=== PATIENT | male | born 1975 | race Caucasian/White ===

== ENCOUNTER 2017-01-09 20:55 | Emergency (ER) | payer OTHER ==
[~2017-01-09] VITALS: Ht 190.5 cm; Wt 134.7 kg
[~2017-01-09 20:55] MED LIST: ACET-1256 PO; ASPI81TA28 PO; DICY20TA10 PO; GABA-112 PO; INSDGIPEN SC; METF-384 PO; PRT/40 PO; RBTUDL5 PO
[2017-01-09 20:57] VITALS: TEMP 37.1; Ht 190.5 cm; Wt 134.7 kg
[2017-01-09] MEDS ORDERED: LXP/20 PO (21:34)
[2017-01-09] MEDS ORDERED: IMT50 PO (21:34)
--- NOTE | 2017-01-09 21:57 | DIAGNOSTIC IMAGING REPORT ---
LEFT FOOT 3 VIEWS CLINICAL HISTORY: Left foot pain. FINDINGS: 3 views of left foot are compared to study dated 09/21/2015. The skeletal structures appear osteopenic. There is no radiographic evidence of acute fracture. Chronic posttraumatic deformity is again noted in the distal shaft of the fifth metatarsal. An os peroneum is unchanged. There is a large dorsal calcaneal enthesophyte. Mild soft tissue swelling is suggested in the foot. IMPRESSION: 1. Mild soft tissue swelling. No acute bony abnormal is seen. 2. There is chronic posttraumatic deformity of the fifth metatarsal. Electronically signed by: Jaydon Wallace M.D. 01/09/2017 9:55 PM Dictated Date/Time: 01/09/2017 9:53 PM
[2017-01-09] MEDS ORDERED: TRAM-453 PO (22:10)
--- NOTE | 2017-01-09 22:11 | EMERGENCY ROOM VISIT NOTE ---
ED Visit Note First contact with patient: 21:11 CHIEF COMPLAINT: Foot pain HISTORY OF PRESENT ILLNESS: This 41-year-old male patient presents to the emergency department ambulatory complaining of pain in the left foot. The patient states that he has had pain in the bottom of the left foot for the past one month. He states that it feels like he is stepping on something when he walks. He reports that he was seen at an urgent care and was told that the problem was too advanced for them. He was referred back to his primary care provider, who referred him to a exceptional children's teacher. The patient is unable to see a exceptional children's teacher until later next month. He states that the pain is worsening and he is having difficulty walking due to the pain. He reports his pain as a 3/10 at rest. He denies any significant swelling of the foot. He denies any bruising, redness or warmth. He has not been taking any medications at home for the pain. Range of motion is full. He does report a previous fracture of the outside of the left foot. He denies any recent trauma. REVIEW OF SYSTEMS: GENERAL: A 6 system review of systems was completed with positives and pertinent negatives in the HPI. ALLERGIES: Cephalosporins MEDICATIONS: See med list PMH: Diabetes, hyperlipidemia, hypertension SOCIAL HISTORY: The patient lives locally with family. PHYSICAL EXAM: Vital Signs: Reviewed Nurse's notes, vital signs stable. GENERAL : This is a 41-year-old male, in no acute distress, but appears in pain, well- developed, well-nourished. MUSCULOSKELETAL: There is no visual deformity of the left foot. There is no erythema or ecchymosis. There is no warmth. There is no tenderness over the dorsal aspect of the foot. No tenderness over the ankle. There is tenderness over the proximal insertion of the plantar fascia. Full range of motion of the ankle and toes. The skin is intact and there are no lacerations or puncture wounds. Dorsalis pedis pulse 2+. Capillary refill less than 2 seconds. RADIOGRAPHIC FINDINGS: LEFT FOOT 3 VIEWS CLINICAL HISTORY: Left foot pain. FINDINGS: 3 views of left foot are compared to study dated 09/21/2015. The skeletal structures appear osteopenic. There is no radiographic evidence of acute fracture. Chronic posttraumatic deformity is again noted in the distal shaft of the fifth metatarsal. An os peroneum is unchanged. There is a large dorsal calcaneal enthesophyte. Mild soft tissue swelling is suggested in the foot. IMPRESSION: 1. Mild soft tissue swelling. No acute bony abnormal is seen. 2. There is chronic posttraumatic deformity of the fifth metatarsal. EMERGENCY DEPARTMENT COURSE: I examined the patient. An X-ray of the left foot was reviewed by myself and radiology and reveals evidence of previous fracture of the fifth metatarsal, but no acute findings. His physical exam is most consistent with plantar fasciitis. The patient was placed in a postoperative shoe. I did initially plan on prescribing the patient an anti-inflammatory, however I chose not to give him that he takes lithium daily. He was instructed to follow-up with the exceptional children's teacher as scheduled. He was given a short course of tramadol for pain. The [place] prescription drug monitoring program was queried and no red flags were identified. The patient verbalized understanding of my assessment and treatment plan. The patient was discharged home in good condition. DIAGNOSIS: Foot pain Problem List Medical Problems: (1) Depression Status: Chronic (2) DM type 2 (diabetes mellitus, type 2) Status: Chronic (3) Gastroparesis Status: Chronic (4) HTN (hypertension) Status: Chronic (5) IBS (irritable bowel syndrome) Status: Chronic Surgical Problems: (1) S/P left knee arthroscopy Status: Chronic (2) S/P tonsillectomy Status: Chronic Current/Historical Medications Scheduled Atorvastatin (Atorvastatin Calcium), 20 MG PO DAILY Escitalopram Oxalate (Escitalopram Oxalate), 10 MG PO QAM Escitalopram Oxalate (Escitalopram Oxalate), 20 MG PO QAM Gabapentin (Gabapentin), 600 MG PO TID Insulin Aspart (Novolog Flexpen), 1 DOSE SC TID Insulin Glargine (Lantus Solostar), 35 UNITS SC AMPM Lisinopril (Lisinopril), 10 MG PO QAM [place] Carbonate ([place] Carbonate), 600 MG PO BID Metformin HCl (Metformin HCl ER), 1,000 MG PO BID Pantoprazole (Pantoprazole Sodium), 40 MG PO QAM Quetiapine Fumarate (Seroquel), 100 MG PO HS Tramadol Hcl (Ultram), 50 MG PO Q4H Scheduled PRN Acetaminophen (Tylenol), 1,000 MG PO BID PRN for Pain Sumatriptan Succinate (Sumatriptan Succinate), 50 MG PO UD PRN for Migraine Allergies Coded Allergies: Cephalosporins (Verified Allergy, Unknown, [place], 09/19/16) Vital Signs Date Time Temp Pulse Resp B/P Pulse Ox O2 Delivery O2 Flow Rate FiO2 01/09/17 22:16 102 18 157/90 92 01/09/17 20:57 37.1 117 18 129/71 96 Room Air Departure Information Impression Primary Impression: Plantar fasciitis of left foot Dispostion Home / Self-Care Condition GOOD Prescriptions Tramadol Hcl (ULTRAM) 50 Mg Tab 50 MG PO Q4H for Pain for 12 Days, #48 TAB For Initial Treatment Prov: Mayte Saxena .JAMIE 01/09/17 Referrals Velasquez Valencia M.D. (PCP) Patient Instructions My [facility] Additional Instructions Tramadol as needed for pain. Follow-up with your primary care provider this week. Follow-up with podiatry as scheduled. Wear the boot for the next 3-4 days, then as needed for pain.
[2017-01-09 22:16] VITALS: BP 157/90; PULSE 102; O2SAT 92
[2017-03-20] MEDS ORDERED: ASPCH81X PO (16:57)
[2017-03-20] MEDS ORDERED: PRLSR20 PO (17:03)
[2017-03-20] MEDS ORDERED: LVMI SC (17:03)
[2017-03-20] MEDS ORDERED: CALC500C3 PO (17:20)
[2017-03-20] MEDS ORDERED: ACET-1175 PO (17:20)
[2017-03-20] MEDS ORDERED: ALUM-30 PO (17:23)
[2017-03-20] MEDS ORDERED: MOML PO (17:23)
[2017-03-20] MEDS ORDERED: ONDA4TAB10 SL (17:31)
[2017-03-20] MEDS ORDERED: LPT/20 PO (18:09)
[2017-03-20] MEDS ORDERED: LISI-461 PO (18:09)
[2017-03-20] MEDS ORDERED: SUMA50TA15 PO (21:28)
[2017-03-20] MEDS ORDERED: PANT40TA PO (21:28)
[2017-03-20] MEDS ORDERED: GLCSR/500 PO (21:34)
[2017-03-20] MEDS ORDERED: NVLGI/PEN SC (21:34)
[2017-03-20] MEDS ORDERED: LXP10 PO (21:34)
[2017-03-20] MEDS ORDERED: NRN600 PO (21:34)
[2017-03-20] MEDS ORDERED: LITH600C PO (21:34)
[2017-04-20] MEDS ORDERED: ULT50X PO (16:22)
[2017-04-20] MEDS ORDERED: DXY100 PO (16:22)
[2017-05-17] MEDS ORDERED: EFFSR375 PO (10:30)
[2017-05-17] MEDS ORDERED: NRN100 PO (10:30)
[2017-05-17] MEDS ORDERED: NICO21DI4 EXT (10:31)
[2017-05-17] MEDS ORDERED: NCR2 MT (10:31)
== END 2017-01-09 22:15 | disposition home or self-care (01) ==
LOC: C.EDB 20:56 → C.EDD 22:15
DX: M72.2 Plantar fascial fibromatosis (principal); M79.672 Pain in left foot; I10 Essential (primary) hypertension; E78.5 Hyperlipidemia, unspecified; E11.9 Type 2 diabetes mellitus without complications; K31.84 Gastroparesis; F32.9 Major depressive disorder, single episode, unspecified; K58.9 Irritable bowel syndrome, unspecified; Z96.652 Presence of left artificial knee joint; Z98.890 Other specified postprocedural states; Z79.4 Long term (current) use of insulin; Z79.84 Long term (current) use of oral hypoglycemic drugs; Z79.899 Other long term (current) drug therapy; Z88.8 Allergy status to other drugs, medicaments and biological substances

== ENCOUNTER → 2017-01-27 | Outpatient (CLI) | payer OTHER ==
[~2017-01-27] MED LIST changes: +ACET-1175 PO; +ALUM-30 PO; +ARIP1TAB15 PO; +ARIP1TAB16 PO; +ARIP1TAB8 PO; +ASPCH81X PO; +ASPEC81 PO; +ASPI-435 PO; +ATOR-24 PO; +ATOR10TA82 PO; +CALC500C3 PO; +CEFT1INJ6 IV; +CLIN300C2 PO; +CYCL5TAB PO; +CYM30 PO; +DICL1GEL12 TOP; -DICY20TA10 PO; +DULO60CA44 PO; +DXY100 PO; +EFFSR150 PO; +EFFSR375 PO; +FLX/5 PO; -GABA-112 PO; +GABA1CAP PO; +GABA800T PO; +GABA800T2 PO; +GLCSR/500 PO; +IMT50 PO; +INSU3INJ3 SC; +LCTX PO; +LISI-461 PO; +LISI10TA PO; +LITH600C PO; +LPT/20 PO; +LPT40 PO; +LVMI SC; +LXP/20 PO; +LXP10 PO; -METF-384 PO; +MOML PO; +NCR2 MT; +NICO21DI4 EXT; +NRN100 PO; +NRN400 PO; +NRN600 PO; +NVLGI/PEN SC; +NVLGIPEN SQ; +OMEP40CA41 PO; +ONDA4TAB10 SL; +PANT40TA PO; +PANT40TA2 PO; +POLY335019 PO; +PRLSR20 PO; +PROM1SUP19 PR; -PRT/40 PO; +QUET1TAB34 PO; -RBTUDL5 PO; +SULF800T23 PO; +SUMA50TA15 PO; +ULT50 PO; +ULT50X PO; +VENL37.593 PO; +VLTG EXT; +[UNRECOGNIZED DRUG - CODE] PO
--- NOTE | 2017-01-28 07:40 | PAP/PSG TECHNICIAN REPORT ---
[facility] Director Utilization Management Polysomnogram Report Study name: None Report date: 01/28/2017 Study date: 01/27/2017 Referring Physician: Aissatou Greene M.D. Name: ROBERT AKHTAR Interpreting Physician: Daniel Greene M.D. Date of : 1975 Director Utilization Management: Elaina Lozano RPS. Sex: Male Age: 41 Study Type: PSG PAP Weight: 288 lbs Height: 41 years, Height 6' 3" BMI: 35.99 Medications: GABAPENTIN 600 MG, LITHIUM CARBONATE 600 MG, LANTUS SOLOSTAR 100 UNIT/ML, NOVOLOG 100 UNIT/ML, SUMATRIPTAN 50 MG, LEXAPRO 20 MG, MELOXICAM 15 MG, SEROQUEL 100 MG, ASPIRIN 81 MG, LISINOPRIL 10 MG, ATORVASTATIN 20 MG, PANTOPRAZOLE 40 MG Patient History 41 yr-old male here for a new CPAP treatment study. He was found to be positive for DAMION with an AHI of 42.8. He chose a Quattro Air full face mask size medium from [employer]. The test was started on room air and 4 CMH2O. ETCO2 testing was not utilized during this study. Room 1 Parameters Monitored NPSG: E1-M2, E2-M1, Fp1-M2, Fp2-M1, F3-M2, F4-M2, F4-M1, C3-M2, C4-M2, C4-M1, O1-M2, O2-M2, O2-M1, T3-M2, T4-M1, P3-M2, P4-M1, CHIN1, CHIN2, HR, EKG, Legs, PFLOW, SNOR, FLOW, CFLOW, Tidal Volume, THOR, ABDO, SpO2, PLTH, CPRESS, ETCO2 Wave, ETCO2, pH Sleep Architecture Sleep Stages Time at Lights Off 10:43:38 PM STAGES Time (min.) TST (%) Time at Lights On 5:30:08 AM Wake 126.5 -- Total Recording Time (TRT) 406.50 min. N1 33.5 12 Total Sleep Period (TSP) 327.0 min. N2 246.5 88 Total Sleep Time (TST) 280.0min. N3 0.0 0 Awake Time 126.5 min. REM 0.0 0 Wake after Sleep Onset 121.0 min. Sleep Efficiency (SE) 69 % Sleep Onset Latency (DWAIN) 5.5 min. Number of Stage 1 Shifts None Awakenings 15 Stage Changes 82 Number of REM periods N/A REM 0.0 0 REM Latency NONE min. NREM 280.0 100 Body Position Analysis Supine Right Left Side Prone Vertical Total Sleep Time (min.) 47.9 171.5 76.1 247.60 0.0 0.0 Total Sleep Time (%) 12% 61% 27% 88 0% N/A% Total Sleep Time REM (min.) 0.0 0.0 0.0 None 0.0 0.0 Total Sleep Time NREM (min.) 32.4 171.5 76.1 None 0.0 0.0 Intermittent Wake (min.) 15.5 95.1 15.8 None 0.0 0.0 Total Sleep Period (%) 14% None None None None None Arousals Myoclonus (PLM) * Events Count Index Events Count Index Spontaneous 26 6 Events Awake (PLMW) 94 44.6 Respiratory 17 3.9 Events Asleep w/ Arousal (PLMA) 21 4.5 PLM 21 5 Events Asleep w/o Arousal (PLMS) 597 127.9 Snoring 10 2 Total Asleep 618 132.4 Total 74 16 Total 712 105 Respiratory Analysis * CA OA MA CH H RERA Total Count 14 1 1 0 92 3 108 Index 3.0 0.2 0.2 0 19.7 1 23.8 Mean Duration 15.2 15.3 18.8 0.00 16.6 15.9 16.4 Longest Duration 21.9 15.3 18.8 0.00 18.8 17.0 24.9 Respiratory Event Summary Total Supine ~Supine Right Left Prone REM NREM Apneas Count 16 6 10 4 6 N/A N/A 16 Index 3.4 11 2 1.4 4.7 N/A N/A 3 Hypopneas (4% Desat) Count 92 24 68 46 22 N/A N/A 92 Index 19.7 44.4 16 16.1 17.3 N/A N/A 19.7 Apneas & All Hypopneas Count 108 30 78 50 28 N/A N/A 108 Index 23.1 56 19 17 22 N/A N/A 23.1 Respiratory Events (Model Making Supervisor+All Hyp+RERA) Count 108 30 81 53 28 N/A N/A 108 Index 23.8 56 20 18.5 22.1 N/A N/A 23.8 Respiratory Related Arousal Count 17 30 13 8 5 N/A N/A 18 Index 3.9 9 3 3 4 N/A N/A 4 Snoring Analysis Supine Right Left Prone REM NREM Total Snore duration 26.7 min Snores count 132 670 395 N/A N/A 1,197 1,197 Snore mean duration 1.3 Sec Snores index 244 234 311 N/A N/A 256.5 256.5 TST with snoring (%) 9.5% Desaturation Event Summary: Minimum %SpO2 Event Count Mean/Min/Max Duration(sec.) Desaturation Index % Time In Bed > 90 178 19.3 / 5.0 / 60.0 27.1 97.7 86 - 90 1 14.8 / 14.8 / 14.8 7.6 1.9 81 - 85 0 N/A 0.0 0.3 76 - 80 1 6.3 / 6.3 / 6.3 576.0 0.0 71 - 75 0 N/A 0.0 0.0 66 - 70 0 N/A 0.0 0.0 61 - 65 0 N/A 0.0 0.0 56 - 60 0 N/A 0.0 0.0 51 - 55 0 N/A 0.0 0.0 < 50 0 N/A 0.0 0.0 Total REM NREM Awake <50% 0.0 min. 0.0 min. 0.0 min. 0.0 min. 51 - 60% 0.0 min. 0.0 min. 0.0 min. 0.0 min. 61 - 70% 0.0 min. 0.0 min. 0.0 min. 0.0 min. 71 - 80% 0.1 min. 0.0 min. 0.0 min. 0.1 min. 81 - 90% 9.2 min. 0.0 min. 8.2 min. 0.9 min. 91 - 100% 394.6 min. 0.0 min. 271.3 min. 123.3 min. Average 94 0 94 94 Minimum SpO2 80 N/A 82 80 Desaturation Event Index 26.4 0.0 33.0 12.8 # Desat. Events below 89% 13 N/A 10 3 Time(%) with Saturation below 89% 0.6 0.0 0.5 0.1 Time(min.) with Saturation below 89% 2.5 0.0 1.9 0.6 Time (mins) REM (mins) NREM (mins) % of TST SpO2 Below 90% 42 N/A N42 1.1 SpO2 Below 88% 2 0 0 1 Heart Rate Analysis Min (bpm) Max (bpm) Average (bpm) Awake 82 105 89 NREM 80 98 89 REM N/A N/A N/A Overall 80 98 89 Supplemental O2 Values Minimum O2 level: None Value Start Time End Time Director Utilization Management Comments Mr. Akhtar slept in the right, left, and supine positions. No cardiac arrhythmias were noted. PLMs were noted. No bruxism noted. CPAP was initiated at +4 CMH2O and up-titrated to a level of +14 CMH2O, Cflex 2. A Quattro Air full face mask size medium from [employer] was used during titration He did not wake up to use the restroom during the night. Mr. Akhtar stated that he slept ok. The final report will be interpreted and signed by a sleep physician. The completed physician report will then be placed in the patient medical record. Therapy Event: Therapy (cm H20) 4 6 8 9 10 12 14 Total Time at Pressure (min.) 32.0 18.2 35.5 35.6 92.9 54.6 137.8 TST at Pressure (min.) 25.5 18.2 34.0 32.6 92.4 52.1 25.3 # Periods 1 1 1 1 1 1 1 Sleep Onset (min.) 5.5 0.0 0.0 0.0 0.0 0.0 0.0 REM Onset (min.) N/A N/A N/A N/A N/A N/A N/A Sleep Efficiency % 79 100 95 91 99 95 18 Wakefulness (%) 20.3 0.0 4.2 8.4 0.5 4.6 81.6 Wakefulness (min.) 6.5 0.0 1.5 3.0 0.5 2.5 112.5 NREM 1 (%) 12.5 2.8 5.6 15.4 7.5 14.1 4.9 NREM 1 (min.) 4.0 0.5 2.0 5.5 7.0 7.7 6.8 NREM 2 (%) 67.2 97.2 90.1 76.1 91.9 81.3 13.4 NREM 2 (min.) 21.5 17.7 32.0 27.1 85.4 44.3 18.5 NREM 3 (%) 0.0 0.0 0.0 0.0 0.0 0.0 0.0 NREM 3 (min.) 0.0 0.0 0.0 0.0 0.0 0.0 0.0 REM (%) 0.0 0.0 0.0 0.0 0.0 0.0 0.0 REM (min.) 0.0 0.0 0.0 0.0 0.0 0.0 0.0 # Arousals 9 3 4 9 18 18 13 Arousal Index 21.2 9.9 7.1 16.6 11.7 20.7 30.8 # Snore 249 162 347 196 141 96 6 Snore Index 585.6 535.4 612.8 360.7 91.5 110.6 14.2 AHI 18.8 52.9 21.2 33.1 18.8 24.2 9.5 AHI Supine N/A N/A N/A N/A 54.4 58.0 N/A AHI Non-Supine 18.8 52.9 21.2 33.1 7.7 15.8 9.5 NREM AHI 18.8 52.9 21.2 33.1 18.8 24.2 9.5 REM AHI N/A N/A N/A N/A N/A N/A N/A RDI 21.2 56.2 23.0 33.1 18.8 24.2 9.5 # Obstructive 0 0 0 1 0 0 0 # Central Ap 1 0 0 2 2 7 2 # Mixed 0 0 0 0 1 0 0 # Hypopneas 7 16 12 15 26 14 2 RERAS 1 1 1 0 0 0 0 Total Respiratory Events 9 17 13 18 29 21 4 Time Below SpO2 89.00% (min.) 0.0 0.0 0.1 0.0 0.1 1.7 0.1 Mean NREM SpO2 (%) 94 93 94 94 94 92 94 Mean REM SpO2 (%) N/A N/A N/A N/A N/A N/A N/A Mean Sleep SpO2 (%) 94 93 94 94 94 92 94 Min NREM SpO2 (%) 91 89 88 90 87 82 88 Min REM SpO2 (%) N/A N/A N/A N/A N/A N/A N/A Position Supine (min.) 0.0 0.0 0.0 0.0 22.1 10.3 0.0 Position Non-supine (min.) 25.5 18.2 34.0 32.6 70.4 41.7 25.3 LM Index Sleep 124.6 72.7 136.0 139.9 155.2 123.3 104.4 LM Index NREM 124.6 72.7 136.0 139.9 155.2 123.3 104.4 LM Index REM N/A N/A N/A N/A N/A N/A N/A Mean Heart Rate (bpm) 94 93 90 88 90 84 86 Min Heart Rate (bpm) 90 89 84 82 84 80 81
--- NOTE | 2017-02-14 14:27 | POLYSOMNOGRAPH REPORT ---
CPAP TITRATION STUDY REFERRING PERSON: Dr. Girish Greene. DRAWER IN: Elaina Lozano. Mr. Akhtar is a 41-year-old male sent to the sleep lab for CPAP titration study. He was recently found to have obstructive sleep apnea with an AHI of 42.8. He has chosen a Quattro Air medium full facemask for his titration. [place] sleepiness scale score on the evening of this study is not recorded. BMI is 35.99. Following the technical and digital specifications of the [place] [employer] (AASM) a standard diagnostic polysomnogram was performed monitoring EEG, EOG, EMG (chin and leg deviations), oxygen saturation, body position, digital video, respiratory effort and airflow. The sleep Stage and event scoring was based on the AASM Manual for the Scoring of Sleep and Associated Events 2007 edition. Apneas are defined as a drop in the peak thermal sensor excursion by >90% of baseline for at least 10 seconds. Hypopneas were scored using the 4% oxygen desaturation rule (4A-Medicare) and a decrease in the nasal pressure excursions by >30% of baseline for at least 10 seconds. Respiratory effort-related arousal (RERA's) is defined as a sequence of breaths lasting at least 10 seconds characterized by increasing respiratory effort or flattening of the nasal pressure waveform leading to an arousal from sleep when the sequence of breaths does not meet criteria for an apnea or hypopnea. Apnea Hypopnea index (AHI) is defined as the number of apneas and hypopneas occurring in an hour of sleep. Respiratory disturbance index (RDI) is defined as the number of apneas, hypopneas, and RERA's occurring in an hour of sleep. Mr. Akhtar's total sleep period time was 327 minutes. Total sleep time was 280 minutes. Sleep efficiency was 69%. Latency to sleep onset was 5.5 minutes with wake after sleep onset of 121 minutes. Total non-REM sleep time was 280 minutes. He spent 12% of that time in N1 sleep, 88% in N2 sleep and no time in N3 sleep. There was no REM latency as this patient had no REM sleep on this test. There were 74 cortical arousals from sleep. Ten of these arousals were due to snoring, 21 due to periodic limb movements of sleep, 17 were due to respiratory events, and the remaining 26 were spontaneous. There were 618 periodic limb movements noted. Limb movement index was 132.4, however, limb movement with arousal index was 4.5. On this sleep study, this patient had 14 central apneas, 1 obstructive apnea and 1 mixed apnea. There were 92 hypopneas and 3 RERA. Apnea-hypopnea index was 23.1. 1197 snoring events were recorded. Total sleep time with snoring was 9.5%. Mean saturation was 94% with desaturations to 80%. Saturations were less than 89% for 2.5 minutes of recorded time. There was no cardiac ectopy noted on this study. During sleep, this patient's heart rate ranged from a low of 80 beats per minute to a high of 98 beats per minute. As stated above, this was a CPAP titration study. Mr. Akhtar was titrated from a CPAP pressure of 4 to a CPAP pressure of 14 over the course of the night. Increasing pressures were needed to prevent hypopneas and arousals. He was observed on a pressure of 14 for 25.3 minutes of sleep. Again, there was no REM sleep on this pressure. Two central apneas and 2 hypopneas were noted on this pressure. AHI was 9.5. Saturations were less than 89% for 0.1 minutes of recorded time. IMPRESSION AND PLAN: A 41-year-old male with severe sleep apnea, who appears to improve his sleep disordered breathing with CPAP therapy, but it did not resolve at a pressure of 14. I would recommend that this patient should be placed on auto titrating CPAP with a minimum pressure of 14 and a maximum pressure of 20. A download from his machine can be reviewed in 1 month and he can be set to optimal pressure based on review of that download.
== END | disposition home or self-care (01) ==
LOC: C.NEUR 20:00
PROVIDERS: ATTEND Family Medicine
DX: G47.30 Sleep apnea, unspecified (principal)

== ENCOUNTER 2017-03-26 14:18 | Observation (INO) | payer OTHER ==
[~2017-03-26] VITALS: Ht 190.5 cm; Wt 130.3 kg
[~2017-03-26 14:18] MED LIST changes: -ACET-1256 PO; -ALUM-30 PO; -ARIP1TAB15 PO; -ARIP1TAB16 PO; -ARIP1TAB8 PO; -ASPEC81 PO; -ASPI-435 PO; -ASPI81TA28 PO; -ATOR-24 PO; -ATOR10TA82 PO; -CALC500C3 PO; -CEFT1INJ6 IV; -CLIN300C2 PO; -CYCL5TAB PO; -CYM30 PO; -DICL1GEL12 TOP; -DULO60CA44 PO; -DXY100 PO; -EFFSR150 PO; -EFFSR375 PO; -FLX/5 PO; -GABA1CAP PO; -GABA800T PO; -GABA800T2 PO; -IMT50 PO; -INSDGIPEN SC; -INSU3INJ3 SC; -LCTX PO; -LISI10TA PO; -LITH600C PO; -LPT40 PO; -LXP/20 PO; -MOML PO; -NCR2 MT; -NICO21DI4 EXT; -NRN100 PO; -NRN400 PO; -NVLGIPEN SQ; -OMEP40CA41 PO; -ONDA4TAB10 SL; -PANT40TA2 PO; -POLY335019 PO; -PRLSR20 PO; -PROM1SUP19 PR; -QUET1TAB34 PO; -SULF800T23 PO; -ULT50 PO; -ULT50X PO; -VENL37.593 PO; -VLTG EXT; -[UNRECOGNIZED DRUG - CODE] PO
[2017-03-26] MEDS ORDERED: SODIUM CHLORIDE 0.9% 1000ML 1,000 ML IV STA ×3 (15:21→17:29)
--- NOTE | 2017-03-26 15:24 | EMERGENCY ROOM VISIT NOTE ---
History Report prepared by Marianela: Kannan Dunn Under the Supervision of: Dr. George Enriquez D.O. First contact with patient: 14:57 Chief Complaint: REFERRED BY DOCTOR Stated Complaint: DEPRESSION History of Present Illness The patient is a 41 year old male who presents to the Emergency Room from [place] for a hypotensive blood pressure rating that was noticed shortly prior to arrival. Per nursing staff the patient's blood pressure was 80/50 at the [facility] this afternoon. The patient was admitted to the hospital here on Wednesday, 6 days ago for acute kidney failure and [facility] Toxicity at 2.4. The patient was discharged from his inpatient stay on Wednesday, two days prior to his arrival today. His [facility] supplement was stopped immediately on Wednesday. The patient is staying at the [facility] for chronic depression. He is not sure when his kidney failure began, but he notes that it was attributed to dehydration. The patient is currently complaining of shoulder pain and has no other complaints at this time. Source of History: patient, nursing staff Onset: Shortly BRAND SPECIALIST Position: other (Cardiovascular ) Quality: other (Hypotension) Note: Patient notes hx of depression/kidney failure. Shoulder pain. Review of Systems See HPI for pertinent positives & negatives. A total of 10 systems reviewed and were otherwise negative. Past Medical & Surgical Medical Problems: (1) Depression (2) DM type 2 (diabetes mellitus, type 2) (3) Gastroparesis (4) HTN (hypertension) (5) IBS (irritable bowel syndrome) (6) NSVT (nonsustained ventricular tachycardia) Surgical Problems: (1) S/P left knee arthroscopy (2) S/P tonsillectomy Family History Cancer Diabetes mellitus MOTHER GRANDMOTHER UNCLE AUNT Gallbladder disease Heart disease Hypertension MOTHER FATHER Lung disease Social History Smoking Status: Current Every Day Smoker Alcohol Use: heavy Drug Use: none Marital Status: Housing Status: lives with family Occupation Status: employed Current/Historical Medications Scheduled Aspirin (Aspirin Chewable), 81 MG PO DAILY Atorvastatin (Atorvastatin Calcium), 20 MG PO QAM Escitalopram Oxalate (Escitalopram Oxalate), 30 MG PO QAM Gabapentin (Gabapentin), 600 MG PO TID Insulin Aspart (Novolog Flexpen), 1 DOSE SC UD Insulin Detemir (Levemir), 20 UNITS SC BID Lisinopril (Lisinopril), 10 MG PO QAM Metformin HCl (Metformin HCl ER), 1,000 MG PO HOLD Omeprazole (Prilosec), 40 MG PO QAM Pantoprazole Sodium (Protonix), 1 TAB PO DAILY Quetiapine Fumarate (Seroquel), 100 MG PO HS Scheduled PRN Acetaminophen (Tylenol), 650 MG PO Q4H PRN for Pain Sumatriptan Succinate (Imitrex), 1 TAB PO UD PRN for Migraine Allergies Coded Allergies: Cephalosporins (Verified Allergy, Unknown, AR, 03/26/17) Physical Exam Vital Signs Date Time Temp Pulse Resp B/P (MAP) Pulse Ox O2 Delivery O2 Flow Rate FiO2 03/26/17 18:00 93 18 125/103 95 Room Air 03/26/17 17:34 91 18 155/65 96 Room Air 03/26/17 16:44 98 20 134/70 96 Room Air 03/26/17 15:46 98 22 113/45 96 Room Air 03/26/17 15:16 97 18 97/36 95 Room Air 03/26/17 14:53 99 03/26/17 14:48 100 118/43 96 Room Air 03/26/17 14:38 96 Room Air 03/26/17 14:32 60 18 104/43 03/26/17 14:20 36.8 105 20 87/40 97 Room Air Physical Exam GENERAL: Patient is awake, alert, and in no acute distress. Patient is resting comfortably and showing no signs of anxiety EYES: The conjunctivae are clear. The pupils are round and reactive. EARS, NOSE, MOUTH AND THROAT: The nose is without any evidence of any deformity. Mucous membranes are Dry. Tongue is midline NECK: The neck is nontender and supple. RESPIRATORY: Normal respiratory effort is noted there is no evidence of wheezing rhonchi or rales CARDIOVASCULAR: Regular rate and rhythm noted there no murmurs rubs or gallops normal S1 normal S2 GASTROINTESTINAL: The abdomen is soft. Bowel sounds are present in all quadrants. Abdomen is nontender MUSCULOSKELETAL/EXTREMITIES: There is no evidence of gross deformity full range of motion is noted in the hips and shoulders SKIN: There is no obvious evidence of any rash. There are no petechiae, pallor or cyanosis noted. NEUROLOGIC: Patient is awake alert and oriented x3. Medical Decision & Procedures ER Provider Diagnostic Interpretation: Radiology results as stated below per my review and radiologist interpretation: SINGLE VIEW CHEST CLINICAL HISTORY: Hypotension. FINDINGS: An AP, portable, upright chest radiograph is compared to study dated 03/20/2017. The examination is degraded by portable technique, large body habitus, and patient rotation. The cardiomediastinal silhouette is unremarkable. The lungs and pleural spaces are clear. No pneumothorax is seen. The bony thorax is grossly intact. IMPRESSION: No acute cardiopulmonary abnormality. Electronically signed by: Jaydon Wallace M.D. 03/26/2017 3:40 PM Dictated Date/Time: 03/26/2017 3:39 PM Laboratory Results 03/26/17 15:25 Red Blood Count 4.21, Mean Corpuscular Volume 83.1, Mean Corpuscular Hemoglobin 27.8, Mean Corpuscular Hemoglobin Concent 33.4, Mean Platelet Volume 8.8, Neutrophils (%) (Auto) 65.0, Lymphocytes (%) (Auto) 20.3, Monocytes (%) (Auto) 6.6, Eosinophils (%) (Auto) 6.8, Basophils (%) (Auto) 0.6, Neutrophils # (Auto) 7.76, Lymphocytes # (Auto) 2.42, Monocytes # (Auto) 0.79, Eosinophils # (Auto) 0.81, Basophils # (Auto) 0.07 03/26/17 15:25 Test 03/26/17 15:05 03/26/17 15:25 03/26/17 15:34 Urine Color YELLOW Urine Appearance CLEAR (CLEAR) Urine pH 5.0 (4.5-7.5) Urine Specific Chapman 1.021 (1.000-1.030) Urine Protein NEG (NEG) Urine Glucose (UA) NEG (NEG) Urine Ketones NEG (NEG) Urine Occult Blood NEG (NEG) Urine Nitrite NEG (NEG) Urine Bilirubin NEG (NEG) Urine Urobilinogen NEG (NEG) Urine Leukocyte Esterase NEG (NEG) Urine WBC (Auto) 1-5 /hpf (0-5) Urine RBC (Auto) 0-4 /hpf (0-4) Urine Hyaline Casts (Auto) >30 /lpf (0-5) Urine Epithelial Cells (Auto) >30 /lpf (0-5) Urine Bacteria (Auto) NEG (NEG) Urine Pathogenic Casts 0-3 GRANULAR CASTS /lpf (0) White Blood Count 11.93 K/uL (4.8-10.8) Red Blood Count 4.21 M/uL (4.7-6.1) Hemoglobin 11.7 g/dL (14.0-18.0) Hematocrit 35.0 % (42-52) Mean Corpuscular Volume 83.1 fL (80-100) Mean Corpuscular Hemoglobin 27.8 pg (25-34) Mean Corpuscular Hemoglobin Concent 33.4 g/dl (32-36) Platelet Count 265 K/uL (130-400) Mean Platelet Volume 8.8 fL (7.4-10.4) Neutrophils (%) (Auto) 65.0 % Lymphocytes (%) (Auto) 20.3 % Monocytes (%) (Auto) 6.6 % Eosinophils (%) (Auto) 6.8 % Basophils (%) (Auto) 0.6 % Neutrophils # (Auto) 7.76 K/uL (1.4-6.5) Lymphocytes # (Auto) 2.42 K/uL (1.2-3.4) Monocytes # (Auto) 0.79 K/uL (0.11-0.59) Eosinophils # (Auto) 0.81 K/uL (0-0.5) Basophils # (Auto) 0.07 K/uL (0-0.2) RDW Standard Deviation 38.9 fL (36.4-46.3) RDW Coefficient of Variation 12.9 % (11.5-14.5) Immature Granulocyte % (Auto) 0.7 % Immature Granulocyte # (Auto) 0.08 K/uL (0.00-0.02) Prothrombin Time 10.4 SECONDS (9.0-12.0) Prothromb Time International Ratio 1.0 (0.9-1.1) Activated Partial Thromboplast Time 25.9 SECONDS (21.0-31.0) Partial Thromboplastin Ratio 1.0 Anion Gap 13.0 mmol/L (3-11) Est Creatinine Clear Calc Drug Dose 46.9 ml/min Estimated GFR () 28.2 Estimated GFR (Non- 24.3 BUN/Creatinine Ratio 17.3 (10-20) Calcium Level 8.1 mg/dl (8.5-10.1) Magnesium Level 2.2 mg/dl (1.8-2.4) Total Bilirubin 0.4 mg/dl (0.2-1) Aspartate Amino Transf (AST/SGOT) 18 U/L (15-37) Alanine Aminotransferase (ALT/SGPT) 32 U/L (12-78) Alkaline Phosphatase 67 U/L (45-117) Troponin I < 0.015 ng/ml (0-0.045) Pro-B-Type Natriuretic Peptide 52 pg/ml (0-450) Total Protein 6.8 gm/dl (6.4-8.2) Albumin 3.6 gm/dl (3.4-5.0) Globulin 3.2 gm/dl (2.5-4.0) Albumin/Globulin Ratio 1.1 (0.9-2) Emory Level 0.4 mMOL/L (0.6-1.2) Ethyl Alcohol mg/dL < 3.0 mg/dl (0-3) Bedside Lactic Acid Venous 1.77 mmol/L (0.90-1.70) Laboratory results per my review. Medications Administered Medications (Trade) Dose Ordered Sig/Mario Alberto Route Start Time Stop Time Status Last Admin Dose Admin Sodium Chloride 1,000 ml @ 999 mls/hr Q1H1M STAT IV 03/26/17 15:21 03/26/17 16:21 DC 03/26/17 15:45 999 MLS/HR Sodium Chloride 1,000 ml @ 200 mls/hr Q5H STAT IV 03/26/17 15:21 03/26/17 20:20 DC 03/26/17 15:45 200 MLS/HR Sodium Chloride 1,000 ml @ 999 mls/hr Q1H1M STAT IV 03/26/17 17:29 03/26/17 18:29 DC 03/26/17 17:34 999 MLS/HR ECG Indication: weakness Rate (beats per minute): 99 Rhythm: normal sinus Findings: no acute ischemic change, no ectopy Comparison ECG Date: 03/26/2017 Change: no significant change ED Course 1509: The patient was evaluated in room A7. A complete history and physical examination were performed. 1521: Ordered Sodium Chloride 1000 mL @ 200 mL/hr IV Q5H, Sodium Chloride 1000 mL @ 999 mL/hr IV Q1H1M. 1729: Ordered Sodium Chloride 1000 mL @ 999 mL/hr IV. 1736: I discussed the case with Dr. Michael Cui. He will evaluate the patient for further treatment. Medical Decision Blood pressure screening: Patient was found to have hypotensive blood pressure on screening. Patient is being treated for hypotension. Medication Reconciliation: I attest that I have personally reviewed the patient' s current medications list. Differential diagnosis: Etiologies such as metabolic, infection, hypo/hyperglycemia, electrolyte abnormalities, cardiac sources, intracerebral event, toxicologic, neurologic, as well as others were entertained. The patient is a 41-year-old male who presented to the emergency apartment for an evaluation of abnormal renal function. The patient was medically cleared in our facility but was admitted medically because of a elevated lithium level and elevated renal function testing. He was discharged and admitted at the [facility] for psychiatric inpatient care. He returns today because of hypotension and abnormal laboratory studies. The patient was found have signs of renal failure. He appears to have also signs of dehydration. He was treated with IV fluids in the emergency department. I discussed his case with the on-call [facility]. They've agreed to evaluate the patient in emergency apartment for further management and disposition. Consults Time Called: 1728 Consulting Physician: Dr. Michael Cui Returned Call: [phone] I discussed the case with Dr. Michael Cui. He will evaluate the patient for further treatment. Impression Primary Impression: Acute renal failure Additional Impression: Dehydration Scribe Attestation The scribe's documentation has been prepared under my direction and personally reviewed by me in its entirety. I confirm that the note above accurately reflects all work, treatment, procedures, and medical decision making performed by me. Departure Information Dispostion Being Evaluated By Hospitalist Velasquez Bocanegra M.D. (PCP) Forms HOME CARE DOCUMENTATION FORM, IMPORTANT VISIT INFORMATION Patient Instructions My [facility] Problem Qualifiers Primary Impression: Acute renal failure Acute renal failure type: unspecified Qualified Codes: N17.9 - Acute kidney failure, unspecified
--- NOTE | 2017-03-26 15:41 | DIAGNOSTIC IMAGING REPORT ---
SINGLE VIEW CHEST CLINICAL HISTORY: Hypotension. FINDINGS: An AP, portable, upright chest radiograph is compared to study dated 03/20/2017. The examination is degraded by portable technique, large body habitus, and patient rotation. The cardiomediastinal silhouette is unremarkable. The lungs and pleural spaces are clear. No pneumothorax is seen. The bony thorax is grossly intact. IMPRESSION: No acute cardiopulmonary abnormality. Electronically signed by: Jaydon Wallace M.D. 03/26/2017 3:40 PM Dictated Date/Time: 03/26/2017 3:39 PM
[2017-03-26 15:45] LABS: URINE APPEARANCE CLEAR (CLEAR); URINE BILIRUBIN NEG (NEG); URINE COLOR YELLOW; URINE EPITHELIAL CELL AUTO >30 /lpf (0-5); URINE NITRITE NEG (NEG); URINE SPECIFIC GRAVITY 1.021 (1.000-1.030); UROBILINOGEN NEG (NEG); ZZUR CULT IF INDIC CLEAN CATCH NO
[2017-03-26 15:46] LABS: MANUAL MICROSCOPIC REQUIRED? NO; REVIEW REQ? YES
[2017-03-26 15:58] LABS: URINE PATH CASTS 0-3 GRANULAR CASTS /lpf (0)
[2017-03-26 15:59] LABS: PROTHROMBIN TIME (PATIENT) 10.4 SECONDS (9.0-12.0)
[2017-03-26] MEDS ORDERED: OMEP40CA41 PO (16:05)
[2017-03-26 16:26] LABS: MEAN CELL VOLUME 83.1 fL (80-100); MEAN CORPUSCULAR HEMOGLOBIN 27.8 pg (25-34); MEAN CORPUSCULAR HGB CONC 33.4 g/dl (32-36); MEAN PLATELET VOLUME 8.8 fL (7.4-10.4); PLATELET COUNT 265 K/uL (130-400); RED BLOOD COUNT 4.21 M/uL (4.7-6.1); WHITE BLOOD COUNT 11.93 K/uL (4.8-10.8)
[2017-03-26 16:42] LABS: BASO % 0.6 %; BASO ABS # 0.07 K/uL (0-0.2); COMPLETE YES; EOS % 6.8 %; IG% 0.7 %; LYMPH % 20.3 %; LYMPH ABS # 2.42 K/uL (1.2-3.4); MONO % 6.6 %
[2017-03-26 17:10] LABS: ALKALINE PHOSPHATASE 67 U/L (45-117); ALT/SGPT 32 U/L (12-78); CARBON DIOXIDE 22 mmol/L (21-32); MAGNESIUM 2.2 mg/dl (1.8-2.4)
[2017-03-26 17:18] LABS: GLUCOSE 159 mg/dl (70-99)
[2017-03-26 17:21] LABS: ALB/GLOB RATIO 1.1 (0.9-2); AST/SGOT 18 U/L (15-37); BLOOD UREA NITROGEN 52 mg/dl (7-18); BUN/CREATININE RATIO 17.3 (10-20); CALCIUM 8.1 mg/dl (8.5-10.1); CHLORIDE 96 mmol/L (98-107); POTASSIUM 4.1 mmol/L (3.5-5.1); SODIUM 131 mmol/L (136-145)
--- NOTE | 2017-03-26 18:27 | History and Physical ---
History & Physical Date & Time of Service: Mar 26, 2017 at 18:27 Chief Complaint: Depression [facility] History of Present Illness Source: patient Patient is a 41 yr old male with PMH of IDDM, HTN, GERD, HLP, Sleep Apnea, Major Depression and other problems who was recently discharged from [facility] after being treated for lithium induced ARF and currently undergoing treatment at [facility] for major depression presents after found to have low blood pressure of 80/50 noted at [facility] and elevated creatinine levels. Patient is currently not on lithium supplements. On evaluation in ED, he is hypotensive and tachycardic. He is drowsy but is oriented X 3 and awakes easily. He denies any change in medications recently. States doing well until yesterday but has been feeling very tired since this morning. Also states having dizziness earlier today which currently resolved. Denies any history of fever, chills, Chest pain, cough, SOB , nausea, vomiting, diarrhea, abdominal pain, decreased urine output or increased frequency, burning micturition. States drinking fluids adequately. Past Medical/Surgical History Medical Problems: (1) Depression Status: Chronic (2) DM type 2 (diabetes mellitus, type 2) Status: Chronic (3) Gastroparesis Status: Chronic (4) HTN (hypertension) Status: Chronic (5) IBS (irritable bowel syndrome) Status: Chronic Surgical Problems: (1) S/P left knee arthroscopy Status: Chronic (2) S/P tonsillectomy Status: Chronic Family History Cancer Diabetes mellitus MOTHER GRANDMOTHER UNCLE AUNT Gallbladder disease Heart disease Hypertension MOTHER FATHER Lung disease Reviewed as above Social History Smoking Status: Current Every Day Smoker Alcohol Use: socially Drug Use: none Marital Status: Housing status: lives with family 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 Immunizations History of Influenza Vaccine: Yes Influenza Vaccine Date: Jul 24, 2016 History of Tetanus Vaccine?: Unknown History of Pneumococcal: Yes Pneumococcal Date: Feb 09, 2006 History of Hepatitis B Vaccine: No Multi-Drug Resistant Organisms History of MDRO: No Allergies Coded Allergies: Cephalosporins (Verified Allergy, Unknown, AR, 03/26/17) Home Medications Scheduled Aspirin (Aspirin Chewable), 81 MG PO DAILY Atorvastatin (Atorvastatin Calcium), 20 MG PO QAM Escitalopram Oxalate (Escitalopram Oxalate), 30 MG PO QAM Gabapentin (Gabapentin), 600 MG PO TID Insulin Aspart (Novolog Flexpen), 1 DOSE SC UD Insulin Detemir (Levemir), 20 UNITS SC BID Lisinopril (Lisinopril), 10 MG PO QAM Metformin HCl (Metformin HCl ER), 1,000 MG PO HOLD Omeprazole (Prilosec), 40 MG PO QAM Pantoprazole Sodium (Protonix), 1 TAB PO DAILY Quetiapine Fumarate (Seroquel), 100 MG PO HS Scheduled PRN Acetaminophen (Tylenol), 650 MG PO Q4H PRN for Pain Sumatriptan Succinate (Imitrex), 1 TAB PO UD PRN for Migraine Review of Systems See HPI for pertinent positives & negatives. A total of 10 systems reviewed and were otherwise negative. Physical Exam Vital Signs Date Time Temp Pulse Resp B/P (MAP) Pulse Ox O2 Delivery O2 Flow Rate FiO2 03/26/17 18:00 93 18 125/103 95 Room Air 03/26/17 17:34 91 18 155/65 96 Room Air 03/26/17 16:44 98 20 134/70 96 Room Air 03/26/17 15:46 98 22 113/45 96 Room Air 03/26/17 15:16 97 18 97/36 95 Room Air 03/26/17 14:53 99 03/26/17 14:48 100 118/43 96 Room Air 03/26/17 14:38 96 Room Air 03/26/17 14:32 60 18 104/43 03/26/17 14:20 36.8 105 20 87/40 97 Room Air General Appearance: WD/WN, no apparent distress Head: normocephalic, atraumatic Eyes: normal inspection, PERRL, EOMI, sclerae normal ENT: normal ENT inspection, hearing grossly normal Neck: supple, trachea midline Respiratory/Chest: chest non-tender, lungs clear, normal breath sounds, no respiratory distress, no accessory muscle use Cardiovascular: regular rate, rhythm, no edema, no murmur Abdomen/GI: normal bowel sounds, non tender, soft, + pertinent finding ( Protuberant) Back: normal inspection Extremities/Musculoskelatal: normal inspection, no pedal edema Neurologic/Psych: no motor/sensory deficits, normal mood/affect, oriented x 3, + pertinent finding (Drowsy) Skin: normal color, warm/dry Diagnostics Laboratory Results Results Past 24 Hours Test 03/26/17 15:05 03/26/17 15:25 03/26/17 15:34 Range/Units Urine Color YELLOW Urine Appearance CLEAR CLEAR Urine pH 5.0 4.5-7.5 Urine Specific [place]ell 1.021 1.000-1.030 Urine Protein NEG NEG Urine Glucose (UA) NEG NEG Urine Ketones NEG NEG Urine Occult Blood NEG NEG Urine Nitrite NEG NEG Urine Bilirubin NEG NEG Urine Urobilinogen NEG NEG Urine Leukocyte Esterase NEG NEG Urine WBC (Auto) 1-5 0-5 /hpf Urine RBC (Auto) 0-4 0-4 /hpf Urine Hyaline Casts (Auto) >30 0-5 /lpf Urine Epithelial Cells (Auto) >30 0-5 /lpf Urine Bacteria (Auto) NEG NEG Urine Pathogenic Casts 0-3 GRANULAR CASTS 0 /lpf White Blood Count 11.93 4.8-10.8 K/uL Red Blood Count 4.21 4.7-6.1 M/uL Hemoglobin 11.7 14.0-18.0 g/dL Hematocrit 35.0 42-52 % Mean Corpuscular Volume 83.1 80-100 fL Mean Corpuscular Hemoglobin 27.8 25-34 pg Mean Corpuscular Hemoglobin Concent 33.4 32-36 g/dl Platelet Count 265 130-400 K/uL Mean Platelet Volume 8.8 7.4-10.4 fL Neutrophils (%) (Auto) 65.0 % Lymphocytes (%) (Auto) 20.3 % Monocytes (%) (Auto) 6.6 % Eosinophils (%) (Auto) 6.8 % Basophils (%) (Auto) 0.6 % Neutrophils # (Auto) 7.76 1.4-6.5 K/uL Lymphocytes # (Auto) 2.42 1.2-3.4 K/uL Monocytes # (Auto) 0.79 0.11-0.59 K/uL Eosinophils # (Auto) 0.81 0-0.5 K/uL Basophils # (Auto) 0.07 0-0.2 K/uL RDW Standard Deviation 38.9 36.4-46.3 fL RDW Coefficient of Variation 12.9 11.5-14.5 % Immature Granulocyte % (Auto) 0.7 % Immature Granulocyte # (Auto) 0.08 0.00-0.02 K/uL Prothrombin Time 10.4 9.0-12.0 SECONDS Prothromb Time International Ratio 1.0 0.9-1.1 Activated Partial Thromboplast Time 25.9 21.0-31.0 SECONDS Partial Thromboplastin Ratio 1.0 Sodium Level 131 136-145 mmol/L Potassium Level 4.1 3.5-5.1 mmol/L Chloride Level 96 98-107 mmol/L Carbon Dioxide Level 22 21-32 mmol/L Anion Gap 13.0 3-11 mmol/L Blood Urea Nitrogen 52 7-18 mg/dl Creatinine 3.00 0.60-1.40 mg/dl Est Creatinine Clear Calc Drug Dose 46.9 ml/min Estimated GFR () 28.2 Estimated GFR (Non- 24.3 BUN/Creatinine Ratio 17.3 10-20 Random Glucose 159 70-99 mg/dl Calcium Level 8.1 8.5-10.1 mg/dl Magnesium Level 2.2 1.8-2.4 mg/dl Total Bilirubin 0.4 0.2-1 mg/dl Aspartate Amino Transf (AST/SGOT) 18 15-37 U/L Alanine Aminotransferase (ALT/SGPT) 32 12-78 U/L Alkaline Phosphatase 67 45-117 U/L Troponin I < 0.015 0-0.045 ng/ml Pro-B-Type Natriuretic Peptide 52 0-450 pg/ml Total Protein 6.8 6.4-8.2 gm/dl Albumin 3.6 3.4-5.0 gm/dl Globulin 3.2 2.5-4.0 gm/dl Albumin/Globulin Ratio 1.1 0.9-2 [place] Level 0.4 0.6-1.2 mMOL/L Ethyl Alcohol mg/dL < 3.0 0-3 mg/dl Bedside Lactic Acid Venous 1.77 0.90-1.70 mmol/L Diagnostic Radiology CXR: No acute cardiopulmonary abnormality. EKG EKG:Normal sinus rhythm, No ST-T wave changes Impression Assessment and Plan Acute Renal Insufficiency: Likely Prerenal Dehydration Presented with tiredness, dizziness and Hypotension Recently discharged from [facility] after being treated for [place] Induced ARF Currently off lithium. [place] levels:0.4 On lisinopril for HTN and Lipitor for HLP: Hold lisinopril, Lipitor for now States he is off Metformin at [facility] Check Renal Ultrasound Hyaline casts in urine suggestive of dehydration Start NSS Monitor renal function Consult Nephrology Avoids Nephrotoxic agents Cr:3.0 Today (Cr:1.13 yesterday) Hyponatremia: Likely secondary to dehydration Also on Lexapro which can contribute Monitor sodium levels Mild Leukocytosis: UA: no signs of UTI, CXR:wnl Denies fever, chills. No obvious source of infection Monitor DM II: Last A1C: 7.8 on 03/21/17 ISS, Lantus hold oral diabetic meds Pharmacy Glycemic control consult HTN: Currently hypotensive Hold Lisinopril GERD: Continue Protonix Sleep Apnea: CPAP QHS Major Depression: Continue Lexapro, Seroquel Denies any suicidal thoughts HLP: Hold Lipitor for now (As ARF) DVT Px: Heparin SQ Disposition: Admit under Observation Plan to discharge to [facility] when medically cleared Cable Maker consulted
[2017-03-26] MEDS ORDERED: ONDANSETRON INJ 2 MG/ML 2 ML VIAL IV PRN (18:30)
[2017-03-26] MEDS ORDERED: ACETAMINOPHEN 325 MG TAB PO PRN (18:30)
[2017-03-26] MEDS ORDERED: PHARMACY GLYCEMIC MGMT CONSULT SCH (18:40)
[2017-03-26] MEDS ORDERED: GLUCOSE 40% GEL 15 GM TUBE PO PRN (18:45)
[2017-03-26] MEDS ORDERED: DEXTROSE 50% 50 ML SYR IV PRN (18:45)
[2017-03-26] MEDS ORDERED: GLUCOSE 10 TABS/TUBE PO PRN (18:45)
[2017-03-26] MEDS ORDERED: GLUCAGON FOR INJ 1 MG VIAL SQ PRN (18:45)
--- NOTE | 2017-03-26 19:31 | Pharmacy Progress Note ---
Glycemic Control Intl Consult Date of Service Mar 26, 2017. Scope Glycemic Pharmacist consulted by Dr Richard on 03/26/17 for glycemic control and to write orders per [facility] inpatient glycemic control protocol Objective Weight (Kilograms): 134.400 Accuchecks BSG (last 24hrs): Test 03/26/17 15:25 Random Glucose 159 mg/dl (70-99) Laboratory Data (last 24hrs) Test 03/26/17 15:25 Anion Gap 13.0 mmol/L BUN/Creatinine Ratio 17.3 Blood Urea Nitrogen 52 mg/dl Creatinine 3.00 mg/dl Potassium Level 4.1 mmol/L Sodium Level 131 mmol/L White Blood Count 11.93 K/uL Red Blood Count 4.21 M/uL Hemoglobin 11.7 g/dL Hematocrit 35.0 % Mean Corpuscular Volume 83.1 fL Mean Corpuscular Hemoglobin 27.8 pg Mean Corpuscular Hemoglobin Concent 33.4 g/dl Platelet Count 265 K/uL Mean Platelet Volume 8.8 fL Neutrophils (%) (Auto) 65.0 % Lymphocytes (%) (Auto) 20.3 % Monocytes (%) (Auto) 6.6 % Eosinophils (%) (Auto) 6.8 % Basophils (%) (Auto) 0.6 % Neutrophils # (Auto) 7.76 K/uL Lymphocytes # (Auto) 2.42 K/uL Monocytes # (Auto) 0.79 K/uL Eosinophils # (Auto) 0.81 K/uL Basophils # (Auto) 0.07 K/uL HbA1c 03/21/17 7.8% Recent Pertinent Medications Outpatient Anti-diabetic Regimen: * Levemir 20 units bid, Novolog sliding scale (previous metformin on hold due to recent ARF) * A1c = 7.8% 03/21/17 The patient is currently receiving: * Basal insulin: Levemir 20 units every 12 hours * Correctional Insulin: Novolog Correction per scale ACHS Goal Range: Low 120 mg/dL - High 160 mg/dL Correction Factor: 30 mg/dL/unit * Prandial insulin: Per carb ratio of 1 unit per 11 grams CHO consumed * Oral Agents: none Risk Factors for Insulin Resistance: * Steroids: no * Infection: no * Pressors: no * IVF: NS @125 ml/hr * Recent Surgery: no * Diet: type 2 diabetic * Mechanical Ventilation: no Assessment & Plan ASSESSMENT: * ADA & AACE recommend a goal blood sugar range 140-180 mg/dl for the majority of critically ill & non-critically ill patients. However, more stringent targets may be selected in individual cases. * 40 yo type 2 diabetic, known to our service from previous admissions (most recently 03/20-03/24/17). Will restart insulins from his previous admission, and reassess in am. PLAN FOR INPATIENT GLYCEMIC CONTROL: * Holding outpatient oral diabetes medications * Basal insulin with Levemir 20 units SQ BID * Correctional Insulin with NOVOLOG per scale ACHS or Q6hrs while NPO * Goal Range: Low 110 mg/dL - High 140 mg/dL * Correction Factor: 15 mg/dL/unit * Nutritional / Prandial insulin per carb ratio of 1 unit per 7 grams CHO consumed * Please note that the plan above was derived based on current level of insulin resistance and hospital stress. These recommendations are appropriate for inpatient admission only. Plan of care upon discharge will need to be reassessed to avoid potential outpatient hypo/hyperglycemia. Thank you.
[2017-03-26] MEDS ORDERED: IV FLUIDS COMPLETED PRN (19:45)
--- NOTE | 2017-03-26 20:52 | DIAGNOSTIC IMAGING REPORT ---
EXAMINATION: RENAL ULTRASOUND CLINICAL HISTORY: Acute renal insufficiency COMPARISON STUDY: 03/22/2017 FINDINGS: The right kidney measures 12.7 cm. The left kidney measures 13.5 cm. There is no evidence of hydronephrosis. There are no renal masses. Cortical thickness is normal and symmetric. No bladder abnormalities are visualized. Bilateral ureteral jets were visualized. IMPRESSION : Normal renal ultrasound. Electronically signed by: Ortiz Driscoll M.D. 03/26/2017 8:51 PM Dictated Date/Time: 03/26/2017 8:50 PM
[2017-03-26 20:56] VITALS: BP 108/72; PULSE 98; TEMP 36.5; O2SAT 95
[2017-03-26] MEDS: SODIUM CHLORIDE 0.9% 1000ML 1,000 ML IV SCH (21:30)
[2017-03-26] MEDS: GABAPENTIN 600 MG TAB PO SCH (21:33)
[2017-03-26] MEDS: QUETIAPINE FUMARATE 100 MG TAB PO SCH (21:33)
[2017-03-26] MEDS: INSULIN DETEMIR FLEXPEN/FLEX TOUCH 100 UNITS/ML 3ML SC SCH (21:40)
[2017-03-26] MEDS: INSULIN ASPART 100 UNITS/ML 3 ML PEN SC SCH (22:06)
[2017-03-26 23:27] VITALS: BP 95/52; PULSE 98; TEMP 36.5; O2SAT 95
[2017-03-27 00:01] VITALS: BP 108/72; PULSE 98; TEMP 36.5; O2SAT 95; Ht 190.5 cm; Wt 130.3 kg
[2017-03-27] MEDS: SODIUM CHLORIDE 0.9% 1000ML 1,000 ML IV SCH ×2 (04:58→13:12)
[2017-03-27] MEDS: HEPARIN SOD 5000 UNIT/0.5 ML CARP SQ SCH ×3 (05:45→21:25)
[2017-03-27 07:00] VITALS: BP 130/79; PULSE 91; TEMP 36.7; O2SAT 94
[2017-03-27 07:16] LABS: BASO ABS # 0.09 K/uL (0-0.2); COMPLETE YES; EOS % 6.7 %; HEMATOCRIT 35.6 % (42-52); IG% 0.8 %; LYMPH % 27.9 %; MEAN CELL VOLUME 83.8 fL (80-100); MEAN CORPUSCULAR HEMOGLOBIN 28.7 pg (25-34); MEAN CORPUSCULAR HGB CONC 34.3 g/dl (32-36); MEAN PLATELET VOLUME 8.8 fL (7.4-10.4); MONO % 7.5 %; NEUT % 56.1 %; PLATELET COUNT 260 K/uL (130-400); RED BLOOD COUNT 4.25 M/uL (4.7-6.1); WHITE BLOOD COUNT 8.61 K/uL (4.8-10.8)
[2017-03-27 07:22] LABS: BUN/CREATININE RATIO 25.6 (10-20); CREATININE 1.2 mg/dl (0.60-1.40); POTASSIUM 5.4 mmol/L (3.5-5.1)
[2017-03-27] MEDS: GABAPENTIN 600 MG TAB PO SCH ×3 (07:47→21:15)
[2017-03-27] MEDS: ASPIRIN 81 MG ECTAB PO SCH (07:47)
[2017-03-27] MEDS: PANTOprazole SOD 40 MG TAB PO SCH (07:48)
[2017-03-27] MEDS: ESCITALOPRAM OXALATE 10 MG TAB PO SCH (07:48)
[2017-03-27] MEDS: INSULIN ASPART 100 UNITS/ML 3 ML PEN SC SCH ×4 (07:51→21:25)
[2017-03-27] MEDS: INSULIN DETEMIR FLEXPEN/FLEX TOUCH 100 UNITS/ML 3ML SC SCH ×2 (07:51→21:25)
--- NOTE | 2017-03-27 08:42 | Pharmacy Progress Note ---
Glycemic Control: Progress Nt Date of Service Mar 27, 2017. Scope Glycemic Pharmacist consulted by Dr Richard on 03/26/17 for glycemic control and to write orders per [facility] inpatient glycemic control protocol. Objective Accuchecks BSG (last 24hrs): Test 03/26/17 15:25 03/26/17 21:22 03/27/17 06:17 03/27/17 07:21 Random Glucose 159 mg/dl (70-99) 173 mg/dl (70-99) Bedside Glucose 219 mg/dl (70-99) 163 mg/dl (70-99) Laboratory Data (last 24hrs) Test 03/26/17 15:25 03/27/17 06:17 Anion Gap 13.0 mmol/L 6.0 mmol/L BUN/Creatinine Ratio 17.3 25.6 Blood Urea Nitrogen 52 mg/dl 31 mg/dl Creatinine 3.00 mg/dl 1.20 mg/dl Potassium Level 4.1 mmol/L 5.4 mmol/L Sodium Level 131 mmol/L 142 mmol/L White Blood Count 11.93 K/uL 8.61 K/uL Red Blood Count 4.21 M/uL 4.25 M/uL Hemoglobin 11.7 g/dL 12.2 g/dL Hematocrit 35.0 % 35.6 % Mean Corpuscular Volume 83.1 fL 83.8 fL Mean Corpuscular Hemoglobin 27.8 pg 28.7 pg Mean Corpuscular Hemoglobin Concent 33.4 g/dl 34.3 g/dl Platelet Count 265 K/uL 260 K/uL Mean Platelet Volume 8.8 fL 8.8 fL Neutrophils (%) (Auto) 65.0 % 56.1 % Lymphocytes (%) (Auto) 20.3 % 27.9 % Monocytes (%) (Auto) 6.6 % 7.5 % Eosinophils (%) (Auto) 6.8 % 6.7 % Basophils (%) (Auto) 0.6 % 1.0 % Neutrophils # (Auto) 7.76 K/uL 4.82 K/uL Lymphocytes # (Auto) 2.42 K/uL 2.40 K/uL Monocytes # (Auto) 0.79 K/uL 0.65 K/uL Eosinophils # (Auto) 0.81 K/uL 0.58 K/uL Basophils # (Auto) 0.07 K/uL 0.09 K/uL HbA1c: 7.8% 03/21/17 Recent Pertinent Medications Outpatient Anti-diabetic Regimen: * Levemir 20 units BID * Novolog per sliding scale: * 171 - 200 3 UNITS * 201 - 250 4 UNITS * 251 - 300 6 UNITS * 301 - 350 8 UNITS * 351 - 400 10 UNITS * > 400 12 UNITS * was on Metformin in the past however this has been on hold secondary to renal dysfxn * A1c = 7.8 % 03/21/17 The patient is currently receiving: * Basal insulin: Levemir 20 units every 12 hours * Correctional Insulin: Novolog Correction per scale ACHS Goal Range: Low 110 mg/dL - High 140 mg/dL Correction Factor: 15 mg/dL/unit * Prandial insulin: Per carb ratio of 1 unit per 7 grams CHO consumed * Oral Agents: None currently Risk Factors for Insulin Resistance: * Diet: ordered T2DM diet Assessment & Plan ASSESSMENT: 03/27/17 * Type 2 diabetic [facility] for hypotension, dehydration and PASHA * Pharmacy Glycemic service has followed this patient in the past and was started on doses of Levemir and Novolog per prior admission data / experience * Thus far the current insulin orders appear appropriate. When tolerating a diet it appears this patient will require ~70+ units per day based upon prior admission. * Fasting BSG 163 this AM w/ 40 units Levemir on board - this is above goal, however still acceptable this early in admission. I prefer to continue the current dose for another 24 hours given dehydration and PASHA which can lead to increased insulin exposure due to slower clearance - renal fxn is improving with hydration however (SCr 3.0 --> 1.2) * Current CF and CR performed fairly well on last admission - continue for now and follow BSG pattern PLAN FOR INPATIENT GLYCEMIC CONTROL: * Continuing Levemir 20 units SQ BID * Continuing correction factor of 15 mg/dl/unit * Continuing carb ratio of 1 unit per 7 grams CHO consumed * Continuing goal range of Low 110 mg/dL - High 140 mg/dL * Continue to hold metformin * Please note that the plan above was derived based on current level of insulin resistance and hospital stress. These recommendations are appropriate for inpatient admission only. Plan of care upon discharge will need to be reassessed to avoid potential outpatient hypo/hyperglycemia. Thank you.
[2017-03-27] MEDS ORDERED: ATORVASTATIN 20 MG TAB PO SCH (09:00)
--- NOTE | 2017-03-27 11:36 | Progress Note ---
Internal Med Progress Note Date of Service: Mar 27, 2017. Provider Documentation: SUBJECTIVE: Seen and examined at bedside. States feeling well today. Lethargy and dizziness resolved. States having chronic back pain. Denies chest pain, SOB. offers no other complaints. OBJECTIVE: Vital Signs-as noted below Physical Exam: General Appearance:Moderately built and nourished, no apparent distress Head: normocephalic, Atraumatic Eyes: normal inspection, EOMI, PERRL Neck: supple, Trachea midline Respiratory/Chest: Normal breath sounds, CTA Cardiovascular: S1, S2, No murmur Abdomen/GI:Soft, Non tender, Bowel sounds present Extremities/Musculoskelatal:normal inspection, no edema Neurologic/Psych:grossly no focal neurological deficits Skin: normal color, warm Lab data as noted below. ASSESSMENT & PLAN: Acute Renal Insufficiency: Likely Prerenal Dehydration Presented with tiredness, dizziness and Hypotension Recently discharged from [facility] after being treated for [place] Induced ARF Currently off lithium. [place] levels:0.4 Continue to hold lisinopril, Lipitor Renal Ultrasound:Unremarkable Hyaline casts in urine suggestive of dehydration Continue NSS Monitor renal function Nephrology consulted Avoids Nephrotoxic agents Cr:3.0 >>> 1.2 Hyponatremia/Hyperkalemia: Likely secondary to dehydration Also on Lexapro which can contribute Monitor sodium levels Sodium levels improved Monitor potassium levels Mild Leukocytosis: UA: no signs of UTI, CXR:wnl Denies fever, chills. No obvious source of infection Resolved DM II: Last A1C: 7.8 on 03/21/17 ISS, Lantus hold oral diabetic meds Pharmacy Glycemic control consult HTN: BP stable Hold Lisinopril GERD: Continue Protonix Sleep Apnea: CPAP QHS Major Depression: Continue Lexapro, Seroquel Denies any suicidal thoughts HLP: Hold Lipitor for now DVT Px: Heparin SQ Disposition: Plan to discharge to [place] tomorrow if stable [employer] consulted Vital Signs: Date Time Temp Pulse Resp B/P (MAP) Pulse Ox O2 Delivery O2 Flow Rate FiO2 03/27/17 08:00 Room Air 03/27/17 07:00 36.7 91 18 130/79 (96) 94 Room Air 03/27/17 00:01 36.5 98 18 108/72 95 Room Air 03/26/17 23:27 36.5 98 20 95/52 (66) 95 Room Air 03/26/17 20:56 36.5 98 18 108/72 (84) 95 Room Air 03/26/17 19:19 85 20 144/77 95 Room Air 03/26/17 18:00 93 18 125/103 95 Room Air 03/26/17 17:34 91 18 155/65 96 Room Air 03/26/17 16:44 98 20 134/70 96 Room Air 03/26/17 15:46 98 22 113/45 96 Room Air 03/26/17 15:16 97 18 97/36 95 Room Air 03/26/17 14:53 99 03/26/17 14:48 100 118/43 96 Room Air 03/26/17 14:38 96 Room Air 03/26/17 14:32 60 18 104/43 03/26/17 14:20 36.8 105 20 87/40 97 Room Air Lab Results: Results Past 24 Hours Test 03/26/17 15:05 03/26/17 15:25 03/26/17 15:34 03/26/17 19:59 Range/Units Urine Color YELLOW Urine Appearance CLEAR CLEAR Urine pH 5.0 4.5-7.5 Urine Specific [place] 1.021 1.000-1.030 Urine Protein NEG NEG Urine Glucose (UA) NEG NEG Urine Ketones NEG NEG Urine Occult Blood NEG NEG Urine Nitrite NEG NEG Urine Bilirubin NEG NEG Urine Urobilinogen NEG NEG Urine Leukocyte Esterase NEG NEG Urine WBC (Auto) 1-5 0-5 /hpf Urine RBC (Auto) 0-4 0-4 /hpf Urine Hyaline Casts (Auto) >30 0-5 /lpf Urine Epithelial Cells (Auto) >30 0-5 /lpf Urine Bacteria (Auto) NEG NEG Urine Pathogenic Casts 0-3 GRANULAR CASTS 0 /lpf White Blood Count 11.93 4.8-10.8 K/uL Red Blood Count 4.21 4.7-6.1 M/uL Hemoglobin 11.7 14.0-18.0 g/dL Hematocrit 35.0 42-52 % Mean Corpuscular Volume 83.1 80-100 fL Mean Corpuscular Hemoglobin 27.8 25-34 pg Mean Corpuscular Hemoglobin Concent 33.4 32-36 g/dl Platelet Count 265 130-400 K/uL Mean Platelet Volume 8.8 7.4-10.4 fL Neutrophils (%) (Auto) 65.0 % Lymphocytes (%) (Auto) 20.3 % Monocytes (%) (Auto) 6.6 % Eosinophils (%) (Auto) 6.8 % Basophils (%) (Auto) 0.6 % Neutrophils # (Auto) 7.76 1.4-6.5 K/uL Lymphocytes # (Auto) 2.42 1.2-3.4 K/uL Monocytes # (Auto) 0.79 0.11-0.59 K/uL Eosinophils # (Auto) 0.81 0-0.5 K/uL Basophils # (Auto) 0.07 0-0.2 K/uL RDW Standard Deviation 38.9 36.4-46.3 fL RDW Coefficient of Variation 12.9 11.5-14.5 % Immature Granulocyte % (Auto) 0.7 % Immature Granulocyte # (Auto) 0.08 0.00-0.02 K/uL Prothrombin Time 10.4 9.0-12.0 SECONDS Prothromb Time International Ratio 1.0 0.9-1.1 Activated Partial Thromboplast Time 25.9 21.0-31.0 SECONDS Partial Thromboplastin Ratio 1.0 Sodium Level 131 136-145 mmol/L Potassium Level 4.1 3.5-5.1 mmol/L Chloride Level 96 98-107 mmol/L Carbon Dioxide Level 22 21-32 mmol/L Anion Gap 13.0 3-11 mmol/L Blood Urea Nitrogen 52 7-18 mg/dl Creatinine 3.00 0.60-1.40 mg/dl Est Creatinine Clear Calc Drug Dose 46.9 ml/min Estimated GFR () 28.2 Estimated GFR (Non- 24.3 BUN/Creatinine Ratio 17.3 10-20 Random Glucose 159 70-99 mg/dl Calcium Level 8.1 8.5-10.1 mg/dl Magnesium Level 2.2 1.8-2.4 mg/dl Total Bilirubin 0.4 0.2-1 mg/dl Aspartate Amino Transf (AST/SGOT) 18 15-37 U/L Alanine Aminotransferase (ALT/SGPT) 32 12-78 U/L Alkaline Phosphatase 67 45-117 U/L Troponin I < 0.015 0-0.045 ng/ml Pro-B-Type Natriuretic Peptide 52 0-450 pg/ml Total Protein 6.8 6.4-8.2 gm/dl Albumin 3.6 3.4-5.0 gm/dl Globulin 3.2 2.5-4.0 gm/dl Albumin/Globulin Ratio 1.1 0.9-2 [place] Level 0.4 0.6-1.2 mMOL/L Ethyl Alcohol mg/dL < 3.0 0-3 mg/dl Bedside Lactic Acid Venous 1.77 0.90-1.70 mmol/L Lactic Acid Level 2.0 0.4-2.0 mmol/L Test 03/26/17 21:22 03/27/17 06:17 03/27/17 07:21 03/27/17 11:02 Range/Units Bedside Glucose 219 163 170 70-99 mg/dl White Blood Count 8.61 4.8-10.8 K/uL Red Blood Count 4.25 4.7-6.1 M/uL Hemoglobin 12.2 14.0-18.0 g/dL Hematocrit 35.6 42-52 % Mean Corpuscular Volume 83.8 80-100 fL Mean Corpuscular Hemoglobin 28.7 25-34 pg Mean Corpuscular Hemoglobin Concent 34.3 32-36 g/dl Platelet Count 260 130-400 K/uL Mean Platelet Volume 8.8 7.4-10.4 fL Neutrophils (%) (Auto) 56.1 % Lymphocytes (%) (Auto) 27.9 % Monocytes (%) (Auto) 7.5 % Eosinophils (%) (Auto) 6.7 % Basophils (%) (Auto) 1.0 % Neutrophils # (Auto) 4.82 1.4-6.5 K/uL Lymphocytes # (Auto) 2.40 1.2-3.4 K/uL Monocytes # (Auto) 0.65 0.11-0.59 K/uL Eosinophils # (Auto) 0.58 0-0.5 K/uL Basophils # (Auto) 0.09 0-0.2 K/uL RDW Standard Deviation 38.7 36.4-46.3 fL RDW Coefficient of Variation 12.8 11.5-14.5 % Immature Granulocyte % (Auto) 0.8 % Immature Granulocyte # (Auto) 0.07 0.00-0.02 K/uL Sodium Level 142 136-145 mmol/L Potassium Level 5.4 3.5-5.1 mmol/L Chloride Level 110 98-107 mmol/L Carbon Dioxide Level 26 21-32 mmol/L Anion Gap 6.0 3-11 mmol/L Blood Urea Nitrogen 31 7-18 mg/dl Creatinine 1.20 0.60-1.40 mg/dl Est Creatinine Clear Calc Drug Dose 116.4 ml/min Estimated GFR () 85.3 Estimated GFR (Non- 73.6 BUN/Creatinine Ratio 25.6 10-20 Random Glucose 173 70-99 mg/dl Calcium Level 8.0 8.5-10.1 mg/dl
[2017-03-27 14:32] VITALS: BP 148/80; PULSE 87; TEMP 36.9; O2SAT 94
[2017-03-27] MEDS: QUETIAPINE FUMARATE 100 MG TAB PO SCH (21:15)
[2017-03-27 23:37] VITALS: BP 122/72; PULSE 85; TEMP 36.6; O2SAT 95
[2017-03-28 05:52] LABS: BASO % 1.1 %; BASO ABS # 0.07 K/uL (0-0.2); COMPLETE YES; EOS % 4.2 %; HEMATOCRIT 37.1 % (42-52); IG% 0.9 %; LYMPH % 45.5 %; LYMPH ABS # 2.94 K/uL (1.2-3.4); MEAN CELL VOLUME 85.5 fL (80-100); MEAN CORPUSCULAR HEMOGLOBIN 28.3 pg (25-34); MEAN CORPUSCULAR HGB CONC 33.2 g/dl (32-36); MEAN PLATELET VOLUME 9.1 fL (7.4-10.4); MONO % 5.9 %; NEUT % 42.4 %; PLATELET COUNT 249 K/uL (130-400); RED BLOOD COUNT 4.34 M/uL (4.7-6.1); WHITE BLOOD COUNT 6.46 K/uL (4.8-10.8)
[2017-03-28] MEDS: HEPARIN SOD 5000 UNIT/0.5 ML CARP SQ SCH ×2 (05:56→13:59)
[2017-03-28 06:21] LABS: BUN/CREATININE RATIO 20.6 (10-20); CALCIUM 8.7 mg/dl (8.5-10.1); CREATININE 0.85 mg/dl (0.60-1.40); POTASSIUM 5.3 mmol/L (3.5-5.1)
[2017-03-28 07:20] VITALS: BP 115/73; PULSE 81; TEMP 36.6; O2SAT 95
[2017-03-28 08:00] VITALS: O2SAT 95
[2017-03-28] MEDS: GABAPENTIN 600 MG TAB PO SCH ×2 (08:46→13:58)
[2017-03-28] MEDS: ASPIRIN 81 MG ECTAB PO SCH (08:46)
[2017-03-28] MEDS: ESCITALOPRAM OXALATE 10 MG TAB PO SCH (08:46)
[2017-03-28] MEDS: PANTOprazole SOD 40 MG TAB PO SCH (08:46)
[2017-03-28] MEDS: INSULIN DETEMIR FLEXPEN/FLEX TOUCH 100 UNITS/ML 3ML SC SCH (08:53)
[2017-03-28] MEDS: INSULIN ASPART 100 UNITS/ML 3 ML PEN SC SCH ×3 (08:53→16:59)
[2017-03-28] MEDS: SODIUM CHLORIDE 0.9% 1000ML 1,000 ML IV SCH (10:10)
--- NOTE | 2017-03-28 11:20 | Progress Note ---
Internal Med Progress Note Date of Service: Mar 28, 2017. Provider Documentation: SUBJECTIVE: Seen and examined at bedside. Reports having mild soreness of abdomen this morning which resolved. Feels well. Denies chest pain, SOB, dizziness. No new complaints. OBJECTIVE: Vital Signs-as noted below Physical Exam: General Appearance:Moderately built and nourished, no apparent distress Head: normocephalic, Atraumatic Eyes: normal inspection, EOMI, PERRL Neck: supple, Trachea midline Respiratory/Chest: Normal breath sounds, CTA Cardiovascular: S1, S2, No murmur Abdomen/GI:Soft, Non tender, Bowel sounds present Extremities/Musculoskelatal:normal inspection, no edema Neurologic/Psych:grossly no focal neurological deficits Skin: normal color, warm Lab data as noted below. ASSESSMENT & PLAN: Acute Renal Insufficiency: Likely Prerenal Dehydration Presented with tiredness, dizziness and Hypotension Recently discharged from [facility] after being treated for [place] Induced ARF Currently off lithium since prior discharge. [place] levels:0.4 Continue to hold lisinopril, lipitor Renal Ultrasound:Unremarkable Hyaline casts in urine suggestive of dehydration Continue IVF Monitor renal function Nephrology consulted Avoids Nephrotoxic agents Cr:3.0 >>> 1.2 >>0.85 Hyponatremia/Hyperkalemia: Likely secondary to dehydration Hyponatremia resolved Monitor potassium levels Potassium 5.3 >>> recheck was 4.9 Mild Leukocytosis: Resolved UA: no signs of UTI, CXR:wnl Denies fever, chills. No obvious source of infection DM II: Last A1C: 7.8 on 03/21/17 ISS, Lantus hold oral diabetic meds Pharmacy Glycemic control consult HTN: BP stable Hold Lisinopril GERD: Continue Protonix Sleep Apnea: CPAP QHS Major Depression: Continue Lexapro, Seroquel Denies any suicidal thoughts HLP: Hold Lipitor for now DVT Px: Heparin SQ Disposition: Plan to discharge to [place] today Follow up with 03/30/17 at 2:45pm Follow up with your physician at [place] Vital Signs: Date Time Temp Pulse Resp B/P (MAP) Pulse Ox O2 Delivery O2 Flow Rate FiO2 03/28/17 12:34 36.6 81 18 95 Room Air 03/28/17 08:00 95 Room Air 03/28/17 07:20 36.6 81 18 115/73 (87) 95 03/27/17 23:37 36.6 85 20 122/72 (89) 95 Room Air 03/27/17 16:00 Room Air 03/27/17 14:32 36.9 87 18 148/80 (102) 94 Lab Results: Results Past 24 Hours Test 03/27/17 16:04 03/27/17 19:46 03/28/17 05:03 03/28/17 07:20 Range/Units Bedside Glucose 144 174 138 70-99 mg/dl White Blood Count 6.46 4.8-10.8 K/uL Red Blood Count 4.34 4.7-6.1 M/uL Hemoglobin 12.3 14.0-18.0 g/dL Hematocrit 37.1 42-52 % Mean Corpuscular Volume 85.5 80-100 fL Mean Corpuscular Hemoglobin 28.3 25-34 pg Mean Corpuscular Hemoglobin Concent 33.2 32-36 g/dl Platelet Count 249 130-400 K/uL Mean Platelet Volume 9.1 7.4-10.4 fL Neutrophils (%) (Auto) 42.4 % Lymphocytes (%) (Auto) 45.5 % Monocytes (%) (Auto) 5.9 % Eosinophils (%) (Auto) 4.2 % Basophils (%) (Auto) 1.1 % Neutrophils # (Auto) 2.74 1.4-6.5 K/uL Lymphocytes # (Auto) 2.94 1.2-3.4 K/uL Monocytes # (Auto) 0.38 0.11-0.59 K/uL Eosinophils # (Auto) 0.27 0-0.5 K/uL Basophils # (Auto) 0.07 0-0.2 K/uL RDW Standard Deviation 40.1 36.4-46.3 fL RDW Coefficient of Variation 12.8 11.5-14.5 % Immature Granulocyte % (Auto) 0.9 % Immature Granulocyte # (Auto) 0.06 0.00-0.02 K/uL Sodium Level 142 136-145 mmol/L Potassium Level 5.3 3.5-5.1 mmol/L Chloride Level 110 98-107 mmol/L Carbon Dioxide Level 26 21-32 mmol/L Anion Gap 6.0 3-11 mmol/L Blood Urea Nitrogen 18 7-18 mg/dl Creatinine 0.85 0.60-1.40 mg/dl Est Creatinine Clear Calc Drug Dose 163.0 ml/min Estimated GFR () 123.7 Estimated GFR (Non- 106.7 BUN/Creatinine Ratio 20.6 10-20 Random Glucose 136 70-99 mg/dl Calcium Level 8.7 8.5-10.1 mg/dl Test 03/28/17 10:40 03/28/17 10:56 Range/Units Potassium Level 4.9 3.5-5.1 mmol/L Bedside Glucose 177 70-99 mg/dl
--- NOTE | 2017-03-28 13:06 | Discharge Instructions ---
Discharge Instructions Date of Service Mar 28, 2017. Admission Reason for Admission: Acute Renal Failure, Dehydration Discharge Discharge Diagnosis / Problem: Acute Renal Failure, Dehydration Discharge Goals Goal(s): Decrease discomfort, Improve function Activity Recommendations Activity Limitations: resume your previous activity Exercise/Sports Limitations: as tolerated . Instructions / Follow-Up Instructions / Follow-Up Follow up with 03/30/17 at 2:45pm Follow up with your physician at [place] Your lisinopril was discontinued. Follow up with your doctor for need to be started on Medications if your blood pressure is elevated persistently. Current Hospital Diet Patient's current hospital diet: Diabetes Type 2 Diet, Low Potassium Diet (2g K) Discharge Diet Recommended Diet: Diabetes Type 2 Diet Pending Studies Studies pending at discharge: no Laboratory Results Hemoglobin A1c Test 03/21/17 05:45 Range/Units Estimated Average Glucose 177 mg/dl Hemoglobin A1c 7.8 H 4.5-5.6 % Medical Emergencies . Who to Call and When: Medical Emergencies: If at any time you feel your situation is an emergency, please call 911 immediately. . Non-Emergent Contact Non-Emergency issues call your: Primary Care Provider Call Non-Emergent contact if: you have a fever, your pain is not controlled, your pain is worsening, your pain is unusual for you, you have any medication questions . . "Provider Documentation" section prepared by Diogenes Richard. . VTE Core Measure Inpt VTE Proph given/why not?: Unfractionated heparin SQ
--- NOTE | 2017-03-28 13:13 | Pharmacy Progress Note ---
Glycemic Control: Progress Nt Date of Service Mar 28, 2017. Scope Glycemic Pharmacist consulted by Dr Richard on 03/26/17 for glycemic control and to write orders per [facility] inpatient glycemic control protocol. Objective Accuchecks BSG (last 24hrs): Test 03/27/17 16:04 03/27/17 19:46 03/28/17 05:03 03/28/17 07:20 Bedside Glucose 144 mg/dl (70-99) 174 mg/dl (70-99) 138 mg/dl (70-99) Random Glucose 136 mg/dl (70-99) Test 03/28/17 10:56 Bedside Glucose 177 mg/dl (70-99) Laboratory Data (last 24hrs) Test 03/28/17 05:03 03/28/17 10:40 Anion Gap 6.0 mmol/L BUN/Creatinine Ratio 20.6 Blood Urea Nitrogen 18 mg/dl Creatinine 0.85 mg/dl Potassium Level 5.3 mmol/L 4.9 mmol/L Sodium Level 142 mmol/L White Blood Count 6.46 K/uL Red Blood Count 4.34 M/uL Hemoglobin 12.3 g/dL Hematocrit 37.1 % Mean Corpuscular Volume 85.5 fL Mean Corpuscular Hemoglobin 28.3 pg Mean Corpuscular Hemoglobin Concent 33.2 g/dl Platelet Count 249 K/uL Mean Platelet Volume 9.1 fL Neutrophils (%) (Auto) 42.4 % Lymphocytes (%) (Auto) 45.5 % Monocytes (%) (Auto) 5.9 % Eosinophils (%) (Auto) 4.2 % Basophils (%) (Auto) 1.1 % Neutrophils # (Auto) 2.74 K/uL Lymphocytes # (Auto) 2.94 K/uL Monocytes # (Auto) 0.38 K/uL Eosinophils # (Auto) 0.27 K/uL Basophils # (Auto) 0.07 K/uL HbA1c: 7.8% 03/21/17 Recent Pertinent Medications Outpatient Anti-diabetic Regimen: * Levemir 20 units BID * Novolog per sliding scale: * 171 - 200 3 UNITS * 201 - 250 4 UNITS * 251 - 300 6 UNITS * 301 - 350 8 UNITS * 351 - 400 10 UNITS * > 400 12 UNITS * was on Metformin in the past however this has been on hold secondary to renal dysfxn * A1c = 7.8 % 03/21/17 The patient is currently receiving: * Basal insulin: Levemir 20 units every 12 hours * Correctional Insulin: Novolog Correction per scale ACHS Goal Range: Low 110 mg/dL - High 140 mg/dL Correction Factor: 15 mg/dL/unit * Prandial insulin: Per carb ratio of 1 unit per 7 grams CHO consumed * Oral Agents: None currently Risk Factors for Insulin Resistance: * Diet: ordered T2DM diet Assessment & Plan ASSESSMENT: 03/27/17 * Type 2 diabetic admitted from the [facility] for hypotension, dehydration and PASHA * Pharmacy Glycemic service has followed this patient in the past and was started on doses of Levemir and Novolog per prior admission data / experience * Thus far the current insulin orders appear appropriate. When tolerating a diet it appears this patient will require ~70+ units per day based upon prior admission. * Fasting BSG 163 this AM w/ 40 units Levemir on board - this is above goal, however still acceptable this early in admission. I prefer to continue the current dose for another 24 hours given dehydration and PASHA which can lead to increased insulin exposure due to slower clearance - renal fxn is improving with hydration however (SCr 3.0 --> 1.2) * Current CF and CR performed fairly well on last admission - continue for now and follow BSG pattern 03/28/17 * BSGs acceptable over last 24 hrs; BSGs have ranged 136-177; received 72 units SQ insulin over last 24 hrs and tolerating diet * Fasting BSG at goal today w/ 40 units of Levemir on board (same as home dose) - no change * All post-prandial BSGs less than 180 yesterday and thus far today - no change PLAN FOR INPATIENT GLYCEMIC CONTROL: * Continuing Levemir 20 units SQ BID * Continuing correction factor of 15 mg/dl/unit * Continuing carb ratio of 1 unit per 7 grams CHO consumed * Continuing goal range of Low 110 mg/dL - High 140 mg/dL * Continue to hold metformin PLAN FOR DISCHARGE: * Would recommend resuming outpt doses of Levemir 20 units BID * Consider scheduling a set dose of Novolog with meals: 8 units * Novolog sliding scale: BSG 150-180: 2 units; 181-210 4 units; 211-240 6 units ; above 240 8 units * Please note that the plan above was derived based on current level of insulin resistance and hospital stress. These recommendations are appropriate for inpatient admission only. Plan of care upon discharge will need to be reassessed to avoid potential outpatient hypo/hyperglycemia. Thank you.
[2017-03-28 14:43] VITALS: BP 164/94; PULSE 85; TEMP 36.4; O2SAT 97
--- NOTE | 2017-03-28 15:16 | Discharge Summary ---
Discharge Summary Date of Service Mar 28, 2017. Discharge Summary Admission Date: Mar 26, 2017 at 19:16 Discharge Date: Mar 28, 2017 Discharge Disposition: Home ([facility]) Principal Diagnosis: Acute Renal Failure, Dehydration Procedures: Renal USD: Normal renal ultrasound. CXR: No acute cardiopulmonary abnormality. Consultations: Nephrology Pending Studies/Follow-Up: Follow up with 03/30/17 at 2:45pm Follow up with your physician at [facility] Your lisinopril was discontinued. Follow up with your doctor for need to be started on Medications if your blood pressure is elevated persistently. Medication Reconciliation Continued Medications: Acetaminophen (Tylenol) 325 Mg Tab 650 MG PO Q4H PRN for Pain, TAB DO NOT EXCEED 3000 MG APAP/24 HOURS Aspirin (Aspirin Chewable) 81 Mg Chew 81 MG PO DAILY Atorvastatin (Atorvastatin Calcium) 20 Mg Tab 20 MG PO QAM Escitalopram Oxalate (Escitalopram Oxalate) 10 Mg Tab 30 MG PO QAM Gabapentin (Gabapentin) 600 Mg Tab 600 MG PO TID Insulin Aspart (Novolog Flexpen) 100 Units/Ml Inj 1 DOSE SC UD GIVE PER ACCUCHECK RESULTS AND SLIDING SCALE NEEDED: 171 - 200 3 UNITS 201 - 250 4 UNITS 251 - 300 6 UNITS 301 - 350 8 UNITS 351 - 400 10 UNITS > 400 12 UNITS Insulin Detemir (Levemir) 100 Units/Ml Inj 20 UNITS SC BID Metformin HCl (Metformin HCl ER) 500 Mg Tabcr 1000 MG PO HOLD Omeprazole (Prilosec) 40 Mg Cap 40 MG PO QAM, CAP Quetiapine Fumarate (Seroquel) 100 Mg Tab 100 MG PO HS Sumatriptan Succinate (Imitrex) 50 Mg Tab 1 TAB PO UD PRN for Migraine, 0 Refills Discontinued Medications: Lisinopril (Lisinopril) 10 Mg Tab 10 MG PO QAM Pantoprazole Sodium (Protonix) 40 Mg Tab 1 TAB PO DAILY, 0 Refills Admission Information HPI (per Admitting provider): Patient is a 41 yr old male with PMH of IDDM, HTN, GERD, HLP, Sleep Apnea, Major Depression and other problems who was recently discharged from [facility] after being treated for lithium induced ARF and currently undergoing treatment at [facility] for major depression presents after found to have low blood pressure of 80/50 noted at [facility] and elevated creatinine levels. Patient is currently not on lithium supplements. On evaluation in ED, he is hypotensive and tachycardic. He is drowsy but is oriented X 3 and awakes easily. He denies any change in medications recently. States doing well until yesterday but has been feeling very tired since this morning. Also states having dizziness earlier today which currently resolved. Denies any history of fever, chills, Chest pain, cough, SOB , nausea, vomiting, diarrhea, abdominal pain, decreased urine output or increased frequency, burning micturition. States drinking fluids adequately. Physical Exam (per Admitting): General Appearance: WD/WN, no apparent distress Head: normocephalic, atraumatic Eyes: normal inspection, PERRL, EOMI, sclerae normal ENT: normal ENT inspection, hearing grossly normal Neck: supple, trachea midline Respiratory/Chest: chest non-tender, lungs clear, normal breath sounds, no respiratory distress, no accessory muscle use Cardiovascular: regular rate, rhythm, no edema, no murmur Abdomen/GI: normal bowel sounds, non tender, soft, + pertinent finding ( Protuberant) Back: normal inspection Extremities/Musculoskelatal: normal inspection, no pedal edema Neurologic/Psych: no motor/sensory deficits, normal mood/affect, oriented x 3, + pertinent finding (Drowsy) Skin: normal color, warm/dry Hospital Course Acute Renal Insufficiency: Likely Prerenal Dehydration Presented with tiredness, dizziness and Hypotension Recently discharged from [facility] after being treated for Summer Set Induced ARF Currently off lithium since prior discharge. Summer Set levels:0.4 Continue to hold lisinopril, lipitor Renal Ultrasound:Unremarkable Hyaline casts in urine suggestive of dehydration Continue IVF Monitor renal function Nephrology consulted Avoids Nephrotoxic agents Cr:3.0 >>> 1.2 >>0.85 Hyponatremia/Hyperkalemia: Likely secondary to dehydration Hyponatremia resolved Monitor potassium levels Potassium 5.3 >>> recheck was 4.9 Mild Leukocytosis: Resolved UA: no signs of UTI, CXR:wnl Denies fever, chills. No obvious source of infection DM II: Last A1C: 7.8 on 03/21/17 ISS, Lantus hold oral diabetic meds Pharmacy Glycemic control consult HTN: BP stable Hold Lisinopril GERD: Continue Protonix Sleep Apnea: CPAP QHS Major Depression: Continue Lexapro, Seroquel Denies any suicidal thoughts HLP: Hold Lipitor for now DVT Px: Heparin SQ Disposition: Plan to discharge to [facility] today Follow up with 03/30/17 at 2:45pm Follow up with your physician at [facility] Total time spent on discharge = 35 minutes This includes examination of the patient, discharge planning, medication reconciliation, and communication with other providers. Discharge Instructions Discharge Instructions Date of Service Mar 28, 2017. Admission Reason for Admission: Acute Renal Failure, Dehydration Discharge Discharge Diagnosis / Problem: Acute Renal Failure, Dehydration Discharge Goals Goal(s): Decrease discomfort, Improve function Activity Recommendations Activity Limitations: resume your previous activity Exercise/Sports Limitations: as tolerated . Instructions / Follow-Up Instructions / Follow-Up Follow up with 03/30/17 at 2:45pm Follow up with your physician at [facility] Your lisinopril was discontinued. Follow up with your doctor for need to be started on Medications if your blood pressure is elevated persistently. Current Hospital Diet Patient's current hospital diet: Diabetes Type 2 Diet, Low Potassium Diet (2g K) Discharge Diet Recommended Diet: Diabetes Type 2 Diet Pending Studies Studies pending at discharge: no Laboratory Results Hemoglobin A1c Test 03/21/17 05:45 Range/Units Estimated Average Glucose 177 mg/dl Hemoglobin A1c 7.8 H 4.5-5.6 % Medical Emergencies . Who to Call and When: Medical Emergencies: If at any time you feel your situation is an emergency, please call 911 immediately. . Non-Emergent Contact Non-Emergency issues call your: Primary Care Provider Call Non-Emergent contact if: you have a fever, your pain is not controlled, your pain is worsening, your pain is unusual for you, you have any medication questions . . "Provider Documentation" section prepared by Diogenes Richard. . VTE Core Measure Inpt VTE Proph given/why not?: Unfractionated heparin SQ
--- NOTE | 2017-03-28 15:43 | NEPHROLOGY CONSULTATION ---
DATE OF CONSULTATION: 03/28/2017 HISTORY OF PRESENT ILLNESS: The patient is a 41-year-old white male with past medical history of insulin-dependent diabetes, hypertension, sleep apnea, major depression and multiple other medical problems who was recently discharged from [facility] after a hospital admission for lithium induced acute renal failure. He was currently undergoing treatment at the [facility] for major depression. He was found to have a low blood pressure of 80/50 as well as elevated creatinine and a low sodium at the [facility], after which he was transferred to the hospital. The patient is currently not on any lithium supplements. In the Emergency Department, he was found to be hypotensive and tachycardic. His admission blood work was significant for acute renal failure and hyponatremia with a sodium of 131 and a creatinine of 3.0. Since admission, he has received fluid and with that his labs have significantly improved and now the sodium is normal at 142, creatinine is normal at 0.85; however, potassium is mildly elevated both on yesterday's lab as well as today. Most recent potassium was 5.3 this morning but now the repeat potassium is normal at 4.9. He is hemodynamically stable and he feels back to normal and there is a chance he might be discharged later today back to the [facility]. PAST MEDICAL AND SURGICAL HISTORY: Depression, type 2 diabetes, gastroparesis, hypertension, irritable bowel syndrome, left knee arthroscopy, and tonsillectomy. FAMILY HISTORY: Positive for diabetes. No renal disease or dialysis. SOCIAL HISTORY: Current every day smoker, social drinker. No drugs. , previously lived with family, employed, now getting rehab at [facility]. ALLERGIES: CEPHALOSPORIN. HOME MEDICATIONS: List was reviewed in detail and is as per the reconciliation list. HOME MEDICATIONS: He was on insulin, lisinopril, metformin, omeprazole, Seroquel, aspirin, Lexapro, gabapentin. He was on lithium up until recently. PHYSICAL EXAMINATION: GENERAL: Middle-aged white male who is slightly obese and he is not in any distress. HEENT: Normocephalic, atraumatic. Pupils equal and reactive. Normal mucus membranes. NECK: No jugular venous distention. CHEST: Bilateral clear to auscultation. CARDIOVASCULAR: Regular rate and rhythm. No murmur. No lower extremity edema. ABDOMEN: Soft, nontender, obese. BACK: Costovertebral angle tenderness, negative. EXTREMITIES: No pedal edema. NEUROLOGIC: Awake, alert, oriented x3. Normal speech. Moving all 4 extremities. SKIN: Normal color, warm and dry. LABORATORY TESTS: Most recent labs from this morning shows a sodium of 142; potassium 5.3, repeat 4.9; BUN 18, creatinine 0.85. On admission 2 days ago, sodium was low at 131, potassium 4.1, BUN was 52, creatinine 3.0. Urine analysis at the time of admission shows hyaline casts, epithelial cells and few granular casts, negative blood and negative protein. Hemoglobin 12.3, platelet count 249. Renal ultrasound was done 2 days ago and was normal. ASSESSMENT AND PLAN: A 41-year-old male with recent history of lithium induced acute renal failure, longstanding diabetes, came in with acute kidney injury secondary to low blood pressure. 1. Acute renal failure. This is prerenal in etiology. After IV hydration and holding lisinopril, his creatinine is back to normal. His renal ultrasound was normal. He is making urine. He is no longer hypotensive, but I would still continue to hold the lisinopril for the time being. He would need a repeat BMP in a few days after discharge and will be followed up as an outpatient. 2. Hyponatremia. It appears this was a true hypovolemic hyponatremia and has improved to normal with the use of normal saline. No further workup needed for this. Case was discussed in detail with Dr. Richard, the hospitalist and patient is going to be discharged today back to the [facility].
[2017-04-20] MEDS ORDERED: DXY100 PO (16:22)
[2017-04-20] MEDS ORDERED: ULT50X PO (16:22)
[2017-05-17] MEDS ORDERED: NRN100 PO (10:30)
[2017-05-17] MEDS ORDERED: EFFSR375 PO (10:30)
[2017-05-17] MEDS ORDERED: NICO21DI4 EXT (10:31)
[2017-05-17] MEDS ORDERED: NCR2 MT (10:31)
[2017-07-29] MEDS ORDERED: LPT40 PO (09:14)
[2017-07-29] MEDS ORDERED: ASPEC81 PO (09:14)
[2017-09-08] MEDS ORDERED: NVLGI/PEN SC (12:12)
[2017-09-08] MEDS ORDERED: CEFT1INJ6 IV (12:12)
[2017-09-08] MEDS ORDERED: INSDGIPEN SC (12:12)
[2017-09-08] MEDS ORDERED: LCTX PO (12:12)
[2017-09-08] MEDS ORDERED: ULT50 PO (12:13)
== END 2017-03-28 17:00 | disposition other institution (70) ==
LOC: C.EDB 14:19 → C.MS2W 19:16 → EDBEDREQ 19:42 → ENRESERV 19:54
PROVIDERS: ADMIT Internal Medicine; ATTEND Internal Medicine
DX: N17.9 Acute kidney failure, unspecified (principal); E86.0 Dehydration; Z79.82 Long term (current) use of aspirin; Z79.4 Long term (current) use of insulin; E11.9 Type 2 diabetes mellitus without complications; I10 Essential (primary) hypertension; K21.9 Gastro-esophageal reflux disease without esophagitis; F32.9 Major depressive disorder, single episode, unspecified; Z90.89 Acquired absence of other organs; Z98.890 Other specified postprocedural states; Z80.3 Family history of malignant neoplasm of breast; Z83.3 Family history of diabetes mellitus; Z82.49 Family history of ischemic heart disease and other diseases of the circulatory system; Z83.6 Family history of other diseases of the respiratory system; F17.200 Nicotine dependence, unspecified, uncomplicated

== ENCOUNTER 2017-03-30 21:21 | Emergency (ER) | payer OTHER ==
[~2017-03-30] VITALS: Ht 190.5 cm; Wt 130.4 kg
[~2017-03-30 21:21] MED LIST changes: -LISI-461 PO; +OMEP40CA41 PO; -PANT40TA PO
[2017-03-30 21:27] VITALS: TEMP 36.8; Ht 190.5 cm; Wt 130.4 kg
[2017-03-30] MEDS ORDERED: SODIUM CHLORIDE 0.9% 1000ML 1,000 ML IV STA (21:53)
[2017-03-30] MEDS ORDERED: LISI-461 PO (21:53)
[2017-03-30] MEDS ORDERED: SODIUM CHLORIDE 0.9% 500ML 500 ML IV STA (21:53)
--- NOTE | 2017-03-30 22:00 | EMERGENCY ROOM VISIT NOTE ---
History Report prepared by Marianela: Laura Velásquez Under the Supervision of: Dr. Jaydon Brewer M.D. First contact with patient: 21:47 Chief Complaint: ABNORMAL LABS Stated Complaint: ABNORMAL LAB History of Present Illness The patient is a 41 year old male who presents to the Emergency Room with complaints of persistent abnormal labs that were drawn today. The patient reports that on March 07 he checked into the [facility] on March 11 voluntarily. He states that he was scheduled for discharge from their facility but was transferred to [facility] for [place] toxicity. The patient states that he was discharged from the hospital 7 days ago and went back to the [facility] for further treatment. He states that Wednesday he was transferred back to the hospital and then again discharged back to the [facility] on Wednesday. The patient states that he was transferred here to the emergency department today for an elevated d-dimer. He denies any shortness of breath, chest pain, or swelling to his lower extremities. The patient states that he has a history of a previous false read for clot. He states that he was previously on Coumadin. The patient denies ever being on Coumadin intermediate. Source of History: patient Onset: today Position: other (global) Quality: other (abnormal labs) Timing: other (persistent) Associated Symptoms: No chest pain, No SOB Review of Systems See HPI for pertinent positives & negatives. A total of 10 systems reviewed and were otherwise negative. Past Medical & Surgical Medical Problems: (1) Depression (2) DM type 2 (diabetes mellitus, type 2) (3) Gastroparesis (4) HTN (hypertension) (5) IBS (irritable bowel syndrome) (6) NSVT (nonsustained ventricular tachycardia) Surgical Problems: (1) S/P left knee arthroscopy (2) S/P tonsillectomy Family History Cancer Diabetes mellitus MOTHER GRANDMOTHER UNCLE AUNT Gallbladder disease Heart disease Hypertension MOTHER FATHER Lung disease Social History Smoking Status: Current Every Day Smoker Alcohol Use: heavy Drug Use: none Marital Status: Housing Status: lives with family Occupation Status: employed Current/Historical Medications Scheduled Aspirin (Aspirin Chewable), 81 MG PO DAILY Atorvastatin (Atorvastatin Calcium), 20 MG PO QAM Escitalopram Oxalate (Escitalopram Oxalate), 30 MG PO QAM Gabapentin (Gabapentin), 600 MG PO TID Insulin Aspart (Novolog Flexpen), 1 DOSE SC UD Insulin Detemir (Levemir), 20 UNITS SC BID Lisinopril (Lisinopril), 10 MG PO QAM Omeprazole (Prilosec), 40 MG PO QAM Quetiapine Fumarate (Seroquel), 100 MG PO HS Scheduled PRN Acetaminophen (Tylenol), 650 MG PO Q4H PRN for Pain Allergies Coded Allergies: Cephalosporins (Verified Allergy, Unknown, AR, 03/30/17) Physical Exam Vital Signs Date Time Temp Pulse Resp B/P (MAP) Pulse Ox O2 Delivery O2 Flow Rate FiO2 03/30/17 23:49 87 03/30/17 23:00 80 18 130/73 93 Room Air 03/30/17 21:27 36.8 96 19 143/71 93 Room Air Physical Exam GENERAL: Patient is in no acute distress. HEENT: No acute trauma, normocephalic atraumatic, mucous membranes moist, no nasal congestion, no scleral icterus. NECK: No stridor, no adenopathy, no meningismus, trachea is midline. LUNGS: Clear to auscultation bilaterally, no wheeze, no rhonchi, breath sounds equal. HEART: Without murmurs gallops or rubs, regular rate and rhythm. ABDOMEN: Soft, nontender, bowel sounds positive, no hernias, no peritonitis. EXTREMITIES: No cyanosis or edema, full range of motion of all the joints without pain or difficulty, no signs for acute trauma. NEUROLOGIC: Oriented x 3, no acute motor or sensory deficits, no focal weakness. SKIN: No rash, no jaundice, no diaphoresis. Medical Decision & Procedures ER Provider Diagnostic Interpretation: Radiology results as stated below per my review and radiologist interpretation: ULTRASOUND VENOUS DOPPLER LWR EXT BILA CLINICAL HISTORY: Elevated d-dimer. COMPARISON STUDY: 10/06/2015 FINDINGS: Real-time and color flow Doppler imaging were performed. Flow was seen within the femoral, popliteal and calf veins with no intraluminal thrombus demonstrated. The saphenous vein is patent. IMPRESSION: No evidence of lower extremity DVT. Electronically signed by: Ortiz Driscoll M.D. 03/30/2017 11:00 PM Dictated Date/Time: 03/30/2017 10:[address]: There is no visualized occlusive pulmonary embolus however, there is some respiratory motion compromise. Dependent atelectasis was seen. Laboratory Results 03/30/17 22:06 03/30/17 22:06 Test 03/30/17 22:06 Red Blood Count 4.34 M/uL (4.7-6.1) Mean Corpuscular Volume 85.9 fL (80-100) Mean Corpuscular Hemoglobin 29.3 pg (25-34) Mean Corpuscular Hemoglobin Concent 34.0 g/dl (32-36) RDW Standard Deviation 41.0 fL (36.4-46.3) RDW Coefficient of Variation 13.0 % (11.5-14.5) Mean Platelet Volume 8.7 fL (7.4-10.4) Prothrombin Time 10.3 SECONDS (9.0-12.0) Prothromb Time International Ratio 1.0 (0.9-1.1) Activated Partial Thromboplast Time 25.9 SECONDS (21.0-31.0) Partial Thromboplastin Ratio 1.0 Anion Gap 9.0 mmol/L (3-11) Est Creatinine Clear Calc Drug Dose 138.6 ml/min Estimated GFR () 106.4 Estimated GFR (Non- 91.8 BUN/Creatinine Ratio 19.0 (10-20) Calcium Level 8.9 mg/dl (8.5-10.1) Laboratory results reviewed by me. Medications Administered Medications (Trade) Dose Ordered Sig/Mario Alberto Route Start Time Stop Time Status Last Admin Dose Admin Sodium Chloride 500 ml @ 999 mls/hr Q31M STAT IV 03/30/17 21:53 03/30/17 22:23 DC 03/30/17 22:20 999 MLS/HR Sodium Chloride 1,000 ml @ 200 mls/hr Q5H STAT IV 03/30/17 21:53 03/31/17 02:52 03/30/17 21:53 200 MLS/HR ECG Indication: other (abnormal labs) Rate (beats per minute): 92 Rhythm: normal sinus Findings: no acute ischemic change, no ectopy ED Course 2147: The patient was evaluated in room B10. A complete history and physical exam was performed. 2152: Ordered Sodium Chloride 1000 ml @ 200 mls/hr IV, Sodium Chloride 500 ml @ 999 mls/hr IV. 0005: Patient studies have returned, he is stable for discharge back to the [facility]. He was told the results of all his testing. Medical Decision The patient is a 41 year old male who presents to the ED with complaints of abnormal labs. Differential diagnoses considered include PE or DVT, dehydration , electrolyte imbalance, coagulopathy. There is no leukocytosis or concerning anemia. No significant electrolyte abnormality or kidney failure. There is no coagulopathy. EKG shows a normal sinus rhythm, no acute ischemia. Bilateral lower extremity ultrasound does not show DVT. Chest CT shows no evidence for PE. The patient is asymptomatic and resting comfortably. He presents with an elevated d-dimer, no clots were found in the legs or lungs. He is being discharged back to the [facility], he was reassured. Medication Reconciliation: I attest that I have personally reviewed the patient' s current medication list. Blood Pressure Screening: Patient was found to have an elevated blood pressure and was referred to their primary doctor for recheck and further treatment. Impression Primary Impression: Elevated d-dimer Scribe Attestation The scribe's documentation has been prepared under my direction and personally reviewed by me in its entirety. I confirm that the note above accurately reflects all work, treatment, procedures, and medical decision making performed by me. Departure Information Dispostion Home / Self-Care Referrals [facility] (PCP) Patient Instructions My [facility] Additional Instructions Stay well-hydrated. All care as before. Lower extremity ultrasound did not show clotting, chest CT did not show clotting.
[2017-03-30] MEDS ORDERED: OPTIRAY 320 IV PRN (22:15)
[2017-03-30 22:17] LABS: HEMATOCRIT 37.3 % (42-52); MEAN CELL VOLUME 85.9 fL (80-100); MEAN CORPUSCULAR HEMOGLOBIN 29.3 pg (25-34); MEAN PLATELET VOLUME 8.7 fL (7.4-10.4); PLATELET COUNT 277 K/uL (130-400); RED BLOOD COUNT 4.34 M/uL (4.7-6.1); WHITE BLOOD COUNT 8.78 K/uL (4.8-10.8)
[2017-03-30 22:31] LABS: PROTHROMBIN TIME (PATIENT) 10.3 SECONDS (9.0-12.0)
--- NOTE | 2017-03-30 23:01 | DIAGNOSTIC IMAGING REPORT ---
ULTRASOUND VENOUS DOPPLER LWR EXT BILA CLINICAL HISTORY: Elevated d-dimer. COMPARISON STUDY: 10/06/2015 FINDINGS: Real-time and color flow Doppler imaging were performed. Flow was seen within the femoral, popliteal and calf veins with no intraluminal thrombus demonstrated. The saphenous vein is patent. IMPRESSION: No evidence of lower extremity DVT. Electronically signed by: Ortiz Driscoll M.D. 03/30/2017 11:00 PM Dictated Date/Time: 03/30/2017 10:59 PM
[2017-03-30 23:19] LABS: CALCIUM 8.9 mg/dl (8.5-10.1)
[2017-03-30] MEDS ORDERED: ALBUT/IPRATROP 3MG/0.5MG NEB 3 ML VIAL INH SCH (23:30)
[2017-03-31 05:01] VITALS: BP 119/60; PULSE 78; O2SAT 96
--- NOTE | 2017-03-31 06:53 | DIAGNOSTIC IMAGING REPORT ---
CT ANGIOGRAPHY OF THE CHEST, PULMONARY EMBOLUS PROTOCOL CLINICAL HISTORY: Chest pain. COMPARISON STUDY: Chest radiograph March 26, [address] October 14, 2015. TECHNIQUE: Following IV administration of 118 mL of [id number]-[id number], helical axial images of the chest were obtained utilizing the pulmonary embolus protocol. Maximal intensity projections and sagittal and coronal reformats were viewed on an independent 3D workstation. IV contrast was administered without complication. CT DOSE: 869.34 mGy.cm FINDINGS: No pulmonary emboli are identified although the segmental and subsegmental pulmonary arteries within the lower lobes are suboptimally assessed due to respiratory motion. There is no evidence of thoracic aortic dissection. The heart is mildly enlarged. There is no pericardial effusion. No enlarged axillary, mediastinal or hilar lymph nodes are present. Groundglass opacities within the lungs suggest atelectasis. There is no consolidation. There is no pneumothorax or pleural effusion. Central airways are patent. There may be fatty infiltration of the liver. IMPRESSION: 1. No pulmonary emboli identified although segmental and subsegmental pulmonary arteries within the lower lobes suboptimally assessed due to respiratory motion. 2. No evidence of thoracic aortic dissection. 3. Groundglass opacities within the lungs which favor atelectasis. Electronically signed by: Serge Ghotra M.D. 03/31/2017 6:51 AM Dictated Date/Time: 03/31/2017 6:46 AM
[2017-04-20] MEDS ORDERED: ULT50X PO (16:22)
[2017-04-20] MEDS ORDERED: DXY100 PO (16:22)
[2017-05-17] MEDS ORDERED: EFFSR375 PO (10:30)
[2017-05-17] MEDS ORDERED: NRN100 PO (10:30)
[2017-05-17] MEDS ORDERED: NCR2 MT (10:31)
[2017-05-17] MEDS ORDERED: NICO21DI4 EXT (10:31)
[2017-07-29] MEDS ORDERED: ASPEC81 PO (09:14)
[2017-07-29] MEDS ORDERED: LPT40 PO (09:14)
[2017-09-08] MEDS ORDERED: NVLGI/PEN SC (12:12)
[2017-09-08] MEDS ORDERED: INSDGIPEN SC (12:12)
[2017-09-08] MEDS ORDERED: CEFT1INJ6 IV (12:12)
[2017-09-08] MEDS ORDERED: LCTX PO (12:12)
[2017-09-08] MEDS ORDERED: ULT50 PO (12:13)
== END 2017-03-31 05:02 | disposition home or self-care (01) ==
LOC: EDBD 21:21 → C.EDB 21:22
DX: R79.1 Abnormal coagulation profile (principal); F32.9 Major depressive disorder, single episode, unspecified; E11.9 Type 2 diabetes mellitus without complications; I10 Essential (primary) hypertension; K31.84 Gastroparesis; K58.9 Irritable bowel syndrome, unspecified; I47.2 Ventricular tachycardia; Z80.9 Family history of malignant neoplasm, unspecified; Z83.3 Family history of diabetes mellitus; Z83.79 Family history of other diseases of the digestive system; Z82.49 Family history of ischemic heart disease and other diseases of the circulatory system; Z83.6 Family history of other diseases of the respiratory system; F17.210 Nicotine dependence, cigarettes, uncomplicated; Z79.82 Long term (current) use of aspirin; Z79.4 Long term (current) use of insulin; Z79.899 Other long term (current) drug therapy

== ENCOUNTER 2017-04-07 22:37 | Emergency (ER) | payer OTHER ==
[~2017-04-07] VITALS: Ht 190.5 cm; Wt 130.5 kg
[~2017-04-07 22:37] MED LIST changes: -GLCSR/500 PO; +LISI-461 PO; -SUMA50TA15 PO
[2017-04-07 22:44] VITALS: TEMP 36.9; Ht 190.5 cm; Wt 130.5 kg
[2017-04-07] MEDS ORDERED: GABAPENTIN 800 MG TAB PO STA (23:40)
--- NOTE | 2017-04-07 23:57 | EMERGENCY ROOM VISIT NOTE ---
History Report prepared by Marianela: Rosibel Agee Under the Supervision of: Dr. Robina Harry D.O. First contact with patient: 23:05 Chief Complaint: MENTAL HEALTH EVALUATION Stated Complaint: ELBOW PAIN, HEADACHE, FEET PAIN History of Present Illness The patient is a 41 year old male who presents to the Emergency Room via EMS with complaints of severe suicidal ideation occurring today. He was discharged from the [facility] yesterday. He was admitted at the [facility] for having a suicide plan. All last night, the patient had acid reflux. He had a vomiting episode this morning. He had some bilateral lower extremity pain but was otherwise at baseline the rest of the day. While at the [facility], his dose of Neurontin was increased to 800 mg but he has not had it since yesterday morning. About 5 hours ago, the patient started having worsening pain in bilateral feet. He describes it as a burning pain. He has some pain relief with putting his shoes on. He has a history of diabetic neuropathy but reports that his pain is worse than normal. He also complains of left arm pain and swelling. He denies any recent falls or injuries. A few minutes prior to arrival, the patient had a sudden onset of worsening suicidal ideation. He started crying. He took a bottle of medication in an attempt to overdose. He states that he would have taken the medication if his nephew had not come into the room to check up on him. His nephew removed all of the medication from the room and called the ambulance. He has been diagnosed with chronic suicidal thoughts. He states that today was the first time he came close to committing suicide. He had motion sickness and became nauseated on the ambulance ride to the Emergency Room. He had a vomiting episode upon arrival to the Emergency Room. The patient currently continues to complain of bilateral lower extremity pain, and left arm pain. He denies any chest pain, shortness of breath, abdominal pain, or any other complaints. Source of History: patient Onset: today Position: other (global) Symptom Intensity: severe Quality: other (suicidal ideation) Associated Symptoms: No chest pain, No SOB, No abdominal pain Review of Systems See HPI for pertinent positives & negatives. A total of 10 systems reviewed and were otherwise negative. Past Medical & Surgical Medical Problems: (1) Depression (2) DM type 2 (diabetes mellitus, type 2) (3) Gastroparesis (4) HTN (hypertension) (5) IBS (irritable bowel syndrome) (6) NSVT (nonsustained ventricular tachycardia) Surgical Problems: (1) S/P left knee arthroscopy (2) S/P tonsillectomy Family History Cancer Diabetes mellitus MOTHER GRANDMOTHER UNCLE AUNT Gallbladder disease Heart disease Hypertension MOTHER FATHER Lung disease Social History Smoking Status: Current Every Day Smoker Alcohol Use: heavy Drug Use: none Marital Status: Housing Status: lives with family Occupation Status: employed Current/Historical Medications Scheduled Aspirin (Aspirin 81), 81 MG PO QAM Escitalopram Oxalate (Escitalopram Oxalate), 30 MG PO QAM Gabapentin (Gabapentin), 600 MG PO BID Gabapentin (Neurontin), 800 MG PO HS Insulin Aspart (Novolog Flexpen), SQ WM Insulin Detemir (Levemir), 10 UNITS SC AMPM Quetiapine Fumarate (Seroquel), 100 MG PO HS Allergies Coded Allergies: Cephalosporins (Verified Allergy, Unknown, AR, 04/07/17) Physical Exam Vital Signs Date Time Temp Pulse Resp B/P (MAP) Pulse Ox O2 Delivery O2 Flow Rate FiO2 04/08/17 05:48 100 20 125/92 96 Room Air 04/08/17 02:34 101 18 118/77 95 Room Air 04/07/17 22:44 36.9 110 20 120/84 98 Room Air Physical Exam HEENT: Head - normocephalic and atraumatic Pupils are equal, round, and reactive to light. Extraocular eye muscles are intact, and sclera are anicteric. Nose - moist nasal mucosa without discharge. Mouth - moist buccal mucosa. Oropharynx is nonerythematous and there is no tonsillar exudate or edema noted. Neck: Supple; no JVD, nuchal rigidity, cervical lymphadenopathy. Heart: Regular rate and rhythm. There is a normal S1 and S2 with no murmurs, clicks, or gallops appreciated. Lungs: Clear to auscultation bilaterally with no wheezes, rales, or rhonchi. Abdomen: Soft, completely nontender, nondistended, with good bowel sounds. There are no palpable pulsatile masses or hepatosplenomegaly. There is no guarding, rigidity, or rebound noted. Extremities: No evidence of cyanosis, or clubbing. There are easily palpable peripheral pulses. Loss of sensation in feet from diabetic neuropathy, tender to touch in tib-fib area of both legs. Edema to left elbow. Skin: warm and dry with good turgor and no rashes. Psychiatric: Slightly pressured speech, admits to suicidal ideation with near attempt. Medical Decision & Procedures ER Provider Diagnostic Interpretation: X-ray results as stated below per interpretation by me: LEFT ELBOW X-RAY No effusion, no fracture. Laboratory Results 04/07/17 23:44 04/07/17 23:44 Test 04/07/17 00:00 04/07/17 23:44 04/08/17 06:23 Urine Color YELLOW Urine Appearance CLEAR (CLEAR) Urine pH 5.0 (4.5-7.5) Urine Specific [place] 1.036 (1.000-1.030) Urine Protein TRACE (NEG) Urine Glucose (UA) 3+ (NEG) Urine Ketones TRACE (NEG) Urine Occult Blood NEG (NEG) Urine Nitrite NEG (NEG) Urine Bilirubin NEG (NEG) Urine Urobilinogen NEG (NEG) Urine Leukocyte Esterase NEG (NEG) Urine WBC (Auto) 1-5 /hpf (0-5) Urine RBC (Auto) 0-4 /hpf (0-4) Urine Hyaline Casts (Auto) 10-30 /lpf (0-5) Urine Epithelial Cells (Auto) 20-30 /lpf (0-5) Urine Bacteria (Auto) NEG (NEG) Urine Opiates Screen NEG (NEG) Urine Methadone, Qualitative NEG (NEG) Urine Barbiturates NEG (NEG) Urine Phencyclidine (PCP) Level NEG (NEG) Ur Amphetamine/Methamphetamine NEG (NEG) MDMA (Ecstasy) Screen NEG (NEG) Urine Benzodiazepines Screen NEG (NEG) Urine Cocaine Metabolite NEG (NEG) Urine Marijuana (THC) NEG (NEG) Red Blood Count 5.09 M/uL (4.7-6.1) Mean Corpuscular Volume 86.1 fL (80-100) Mean Corpuscular Hemoglobin 30.1 pg (25-34) Mean Corpuscular Hemoglobin Concent 34.9 g/dl (32-36) RDW Standard Deviation 41.9 fL (36.4-46.3) RDW Coefficient of Variation 13.4 % (11.5-14.5) Mean Platelet Volume 8.9 fL (7.4-10.4) Anion Gap 9.0 mmol/L (3-11) Est Creatinine Clear Calc Drug Dose 138.6 ml/min Estimated GFR () 106.4 Estimated GFR (Non- 91.8 BUN/Creatinine Ratio 12.4 (10-20) Calcium Level 9.4 mg/dl (8.5-10.1) Total Bilirubin 0.4 mg/dl (0.2-1) Direct Bilirubin < 0.1 mg/dl (0-0.2) Aspartate Amino Transf (AST/SGOT) 16 U/L (15-37) Alanine Aminotransferase (ALT/SGPT) 38 U/L (12-78) Alkaline Phosphatase 71 U/L (45-117) Total Protein 7.9 gm/dl (6.4-8.2) Albumin 3.9 gm/dl (3.4-5.0) Thyroid Stimulating Hormone (TSH) 3.280 uIu/ml (0.300-4.500) Salicylates Level < 1.7 mg/dl (2.8-20) Acetaminophen Level < 2 ug/ml (10-30) Ethyl Alcohol mg/dL < 3.0 mg/dl (0-3) Bedside Glucose 168 mg/dl (70-99) Laboratory results per my review. Medications Administered Medications (Trade) Dose Ordered Sig/Mario Alberto Route Start Time Stop Time Status Last Admin Dose Admin Gabapentin (Neurontin Tab) 800 mg NOW STAT PO 04/07/17 23:40 04/07/17 23:43 DC 04/08/17 00:15 800 MG Al Hydroxide/Mg Hydroxide (Maalox Susp) 30 ml NOW STAT PO 04/08/17 01:18 04/08/17 01:20 DC 04/08/17 01:22 30 ML Aspirin (Aspirin Chew) 81 mg NOW STAT PO 04/08/17 06:15 04/08/17 06:18 DC 04/08/17 06:27 81 MG Escitalopram Oxalate (Lexapro Tab) 30 mg QAM PO 04/08/17 09:00 05/08/17 08:59 04/08/17 06:38 30 MG Insulin Detemir (Levemir Flexpen/ FlexTouch) 10 unit NOW STAT SC 04/08/17 06:15 04/08/17 06:18 DC 04/08/17 06:38 10 UNIT Procedure Gabapentin 800 mg PO, Maalox Susp 30 ml PO, Insulin Detemir 10 unit SC, Aspirin 81 mg PO, Lexapro Tab 30 mg PO ED Course 2305: Past medical records reviewed. The patient was evaluated in room A08. A complete history and physical exam was performed. Labs are drawn as above.. The patient went for an x-ray of the left elbow. This was unremarkable. 2340: Gabapentin 800 mg PO 0116: The patient was medically cleared. 0118: The patient is complaining of reflux. Maalox Susp 30 ml PO 0119: The patient is being evaluated by [facility] for placement. 0130: I reevaluated the patient and discussed the x-ray results and labs with him. 0600: I will order the patient's morning medications. 0615: Insulin Detemir 10 unit SC, Aspirin 81 mg PO 0730: The patient was signed out to Dr. Conway at [id number]. 0900: Lexapro Tab 30 mg PO Medical Decision The patient presents to the Emergency Room with complaints of suicidal ideation. Differential diagnosis includes but is not limited to exacerbation of diabetic neuropathy, tennis elbow, left elbow strain, septic joint, mood disorder, thought disorder. His labs showed normal white count, stable H&H, negative alcohol, Tylenol, aspirin, negative tox screen, urinalysis has trace protein and trace ketones, normal renal function and TSH, glucose 214, normal LFTs. I attest that I have personally reviewed the patient's current medication list. Patient was found to have normal blood pressure on screening and does not require follow-up. The patient was recently discharged from the [facility]. He states that he became extremely emotional tonight and felt suicidal. He had a bottle of pills in his hand and states that he would have overdosed of his nephew had not presented into the room. The patient is willing to admit himself voluntarily. [facility] is here performing a bed search. Once the patient found out that the [facility] would not accept him back onto their unit, the patient did not want to sign himself in voluntarily. The mobile soaker soda worker and myself were quite concerned about the patient's safety as he told me that this was the closest he ever came to killing himself. He told the mobile soaker soda worker that if he were to be discharged home that he would kill himself. For this reason, she petitioned a 302 and I signed it. As to the patient's left elbow. There is some mild edema but no erythema, warmth or restricted range of motion. X-ray reveals no evidence of fracture. The patient was given an increased dose of gabapentin here in the emergency department for the discomfort in his legs. This has given him some relief. Impression Primary Impression: Suicidal ideation Additional Impression: Left elbow pain Scribe Attestation The scribe's documentation has been prepared under my direction and personally reviewed by me in its entirety. I confirm that the note above accurately reflects all work, treatment, procedures, and medical decision making performed by me. Departure Information Dispostion Still a Patient Referrals Velasquez Valencia M.D. (PCP) Patient Instructions My [facility] Problem Qualifiers
[2017-04-07] MEDS ORDERED: GABA800T PO (23:58)
[2017-04-08] MEDS ORDERED: NVLGIPEN SQ (00:01)
[2017-04-08 00:04] LABS: HEMATOCRIT 43.8 % (42-52); MEAN CELL VOLUME 86.1 fL (80-100); MEAN CORPUSCULAR HEMOGLOBIN 30.1 pg (25-34); MEAN CORPUSCULAR HGB CONC 34.9 g/dl (32-36); MEAN PLATELET VOLUME 8.9 fL (7.4-10.4); PLATELET COUNT 271 K/uL (130-400); RED BLOOD COUNT 5.09 M/uL (4.7-6.1); WHITE BLOOD COUNT 9.29 K/uL (4.8-10.8)
[2017-04-08 00:26] LABS: URINE APPEARANCE CLEAR (CLEAR); URINE BILIRUBIN NEG (NEG); URINE COLOR YELLOW; URINE EPITHELIAL CELL AUTO 20-30 /lpf (0-5); URINE NITRITE NEG (NEG); URINE SPECIFIC GRAVITY 1.036 (1.000-1.030); UROBILINOGEN NEG (NEG)
[2017-04-08 00:27] LABS: ALT/SGPT 38 U/L (12-78); AST/SGOT 16 U/L (15-37); BLOOD UREA NITROGEN 12 mg/dl (7-18); BUN/CREATININE RATIO 12.4 (10-20); CALCIUM 9.4 mg/dl (8.5-10.1); CARBON DIOXIDE 29 mmol/L (21-32); CHLORIDE 101 mmol/L (98-107); GLUCOSE 214 mg/dl (70-99); POTASSIUM 3.8 mmol/L (3.5-5.1); SODIUM 139 mmol/L (136-145)
[2017-04-08 00:33] LABS: MANUAL MICROSCOPIC REQUIRED? NO; REVIEW REQ? NO
[2017-04-08 00:38] LABS: ALKALINE PHOSPHATASE 71 U/L (45-117)
[2017-04-08 00:47] LABS: ACETAMINOPHEN < 2 ug/ml (10-30)
[2017-04-08 00:54] LABS: BENZODIAZEPINE, URINE NEG (NEG); COCAINE,URINE NEG (NEG); PHENCYCLIDINE, URINE NEG (NEG)
[2017-04-08] MEDS ORDERED: ALUMINUM/MAGNESIUM SUSP 30 ML UDC PO STA (01:18)
[2017-04-08] MEDS ORDERED: ASPIRIN 81 MG CHEW PO STA (06:15)
[2017-04-08] MEDS ORDERED: INSULIN DETEMIR FLEXPEN/FLEX TOUCH 100 UNITS/ML 3ML SC STA (06:15)
[2017-04-08] MEDS ORDERED: GABAPENTIN 600 MG TAB PO STA (07:48)
--- NOTE | 2017-04-08 07:54 | DIAGNOSTIC IMAGING REPORT ---
LEFT ELBOW 3 VIEWS HISTORY: Left elbow pain. eval for effusion COMPARISON: None. FINDINGS: There is no fracture or dislocation. Soft tissues are unremarkable. No radiopaque foreign bodies. No elbow effusion. IMPRESSION: No fractures. Electronically signed by: Vijay Wadsworth M.D. 04/08/2017 7:52 AM Dictated Date/Time: 04/08/2017 7:52 AM
[2017-04-08] MEDS ORDERED: ESCITALOPRAM OXALATE 20 MG TAB PO SCH (09:00)
[2017-04-08 12:06] VITALS: BP 126/64; PULSE 97; O2SAT 95
--- NOTE | 2017-04-08 13:42 | EMERGENCY ROOM VISIT NOTE ---
ED Visit Note First contact with patient: 07:49 41 yr old male with long history of mental illness initially medically cleared and [address] overnight. Signed out to me awaiting placement. Given Gabapentin for chronic pain. Accepted to [facility] for further treatment.
[2017-04-20] MEDS ORDERED: ULT50X PO (16:22)
[2017-04-20] MEDS ORDERED: DXY100 PO (16:22)
[2017-05-17] MEDS ORDERED: EFFSR375 PO (10:30)
[2017-05-17] MEDS ORDERED: NRN100 PO (10:30)
[2017-05-17] MEDS ORDERED: NICO21DI4 EXT (10:31)
[2017-05-17] MEDS ORDERED: NCR2 MT (10:31)
[2017-07-29] MEDS ORDERED: ASPEC81 PO (09:14)
[2017-07-29] MEDS ORDERED: LPT40 PO (09:14)
[2017-09-08] MEDS ORDERED: CEFT1INJ6 IV (12:12)
[2017-09-08] MEDS ORDERED: INSDGIPEN SC (12:12)
[2017-09-08] MEDS ORDERED: LCTX PO (12:12)
[2017-09-08] MEDS ORDERED: NVLGI/PEN SC (12:12)
[2017-09-08] MEDS ORDERED: ULT50 PO (12:13)
== END 2017-04-08 12:07 ==
LOC: EDBD 22:37 → C.EDC 22:39 → C.EDA 04-08 12:07
DX: R45.851 Suicidal ideations (principal); M25.522 Pain in left elbow; E11.43 Type 2 diabetes mellitus with diabetic autonomic (poly)neuropathy; F32.9 Major depressive disorder, single episode, unspecified; I10 Essential (primary) hypertension; K58.9 Irritable bowel syndrome, unspecified; Z80.9 Family history of malignant neoplasm, unspecified; Z83.3 Family history of diabetes mellitus; Z82.49 Family history of ischemic heart disease and other diseases of the circulatory system; F17.210 Nicotine dependence, cigarettes, uncomplicated; Z79.82 Long term (current) use of aspirin; Z79.4 Long term (current) use of insulin; Z79.899 Other long term (current) drug therapy; K21.9 Gastro-esophageal reflux disease without esophagitis

== ENCOUNTER 2017-04-18 20:35 | Inpatient (IN) | payer OTHER ==
[~2017-04-18] VITALS: Ht 190.5 cm; Wt 131.6 kg
[~2017-04-18 20:35] MED LIST changes: -ACET-1175 PO; -ASPCH81X PO; +GABA800T PO; -LISI-461 PO; -LPT/20 PO; -NVLGI/PEN SC; +NVLGIPEN SQ; -OMEP40CA41 PO
[2017-04-18] MEDS ORDERED: SODIUM CHLORIDE 0.9% 1000ML 1,000 ML IV STA (21:12)
[2017-04-18] MEDS ORDERED: OXYCODONE HCL IR 5 MG TAB (IMMEDIATE RELEASE) PO STA (21:12)
[2017-04-18] MEDS ORDERED: QUET1TAB34 PO (21:34)
[2017-04-18 22:10] LABS: HEMATOCRIT 40.9 % (42-52); MEAN CELL VOLUME 84.7 fL (80-100); MEAN CORPUSCULAR HEMOGLOBIN 29.6 pg (25-34); MEAN PLATELET VOLUME 8.7 fL (7.4-10.4); PLATELET COUNT 248 K/uL (130-400); RED BLOOD COUNT 4.83 M/uL (4.7-6.1)
[2017-04-18] MEDS ORDERED: ARIP1TAB16 PO (22:11)
[2017-04-18] MEDS ORDERED: NRN400 PO (22:11)
[2017-04-18 22:28] LABS: BASO % 0.3 %; BASO ABS # 0.03 K/uL (0-0.2); BUN/CREATININE RATIO 17.5 (10-20); CALCIUM 8.9 mg/dl (8.5-10.1); COMPLETE YES; CREATININE 0.88 mg/dl (0.60-1.40); EOS % 3.1 %; IG% 0.9 %; LYMPH % 17.9 %; LYMPH ABS # 1.99 K/uL (1.2-3.4); MAGNESIUM 1.7 mg/dl (1.8-2.4); MONO % 9.1 %; NEUT % 68.7 %; POTASSIUM 3.5 mmol/L (3.5-5.1)
[2017-04-18] MEDS ORDERED: PIPERACILLIN/TAZOBACTAM 4.5 GM/100ML D5W IV STA (22:29)
[2017-04-18] MEDS ORDERED: VANCOMYCIN IV STA (22:29)
[2017-04-18] MEDS ORDERED: SODIUM CHLORIDE 0.9% IV STA (22:29)
[2017-04-18 22:31] LABS: ALB/GLOB RATIO 0.9 (0.9-2)
--- NOTE | 2017-04-18 22:44 | DIAGNOSTIC IMAGING REPORT ---
LEFT SECOND TOE 3 VIEWS CLINICAL HISTORY: Second toe erythema and swelling. FINDINGS: 3 views of the left second toe are correlated with radiograph is of the left foot dated 01/09/2017. The skeletal structures are well mineralized. There is a nondistracted fracture through the midshaft of the second middle phalanx. Overlying soft tissue edema is noted. No additional fracture is seen. The second metatarsophalangeal and interphalangeal joints are well-maintained. A bone island is incidentally noted in the distal third metatarsal. IMPRESSION: Nondistracted fracture through the midshaft of the second middle phalanx as above. Electronically signed by: Jaydon Wallace M.D. 04/18/2017 10:43 PM Dictated Date/Time: 04/18/2017 10:41 PM
[2017-04-18] MEDS ORDERED: VANCOMYCIN INJ 2,800 MG in SODIUM CHLORIDE 0.9% 500ML 500 ML IV ONE (23:00)
[2017-04-18 23:30] VITALS: BP_SYST 140; BP_SYST 145; BP_DIAS 71; BP_DIAS 77; PULSE 110; TEMP 36.9; O2SAT 92; O2SAT 95; Ht 190.5 cm; Wt 131.6 kg
[2017-04-18] MEDS ORDERED: GLUCAGON FOR INJ 1 MG VIAL SQ PRN (23:30)
[2017-04-18] MEDS ORDERED: DEXTROSE 50% 50 ML SYR IV PRN (23:30)
[2017-04-18] MEDS ORDERED: KETOROLAC TROMETHAMINE 30 MG/ML VIAL IV PRN (23:30)
[2017-04-18] MEDS ORDERED: GLUCOSE 10 TABS/TUBE PO PRN (23:30)
[2017-04-18] MEDS ORDERED: ONDANSETRON INJ 2 MG/ML 2 ML VIAL IV PRN ×2 (23:30)
[2017-04-18] MEDS ORDERED: ACETAMINOPHEN 325 MG TAB PO PRN (23:30)
[2017-04-18] MEDS ORDERED: TRAMADOL HCL 50 MG TAB PO PRN (23:30)
[2017-04-18] MEDS ORDERED: IBUPROFEN 200 MG TAB PO PRN (23:30)
[2017-04-18] MEDS ORDERED: GLUCOSE 40% GEL 15 GM TUBE PO PRN (23:30)
[2017-04-18] MEDS ORDERED: MAGNESIUM SULFATE 1GM / D5W 1 GM in PREMIXED IN D5W 100 ML IV ONE (23:30)
--- NOTE | 2017-04-18 23:39 | History and Physical ---
History & Physical Date & Time of Service: Apr 18, 2017 at 23:38 Chief Complaint: Sepsis Primary Care Physician: Velasquez Valencia M.D. History of Present Illness Source: patient, clinic records, hospital records Recent confinement March 2017, for ARF, lithium toxicity. 2 weeks ago patient was at the ER for suicidality. Transferred to [facility]. Patient just released from [place] facility yesterday. Today patient noted painful swelling of the left second toe. Denies fever chills. No recollection of trauma. Patient denies chest pain or shortness of breath. At the emergency room, patient given Zosyn for possible cellulitis. Past Medical/Surgical History Medical Problems: (1) Depression Status: Chronic (2) DM type 2 (diabetes mellitus, type 2) Status: Chronic (3) Gastroparesis Status: Chronic (4) HTN (hypertension) Status: Chronic (5) IBS (irritable bowel syndrome) Status: Chronic Surgical Problems: (1) S/P left knee arthroscopy Status: Chronic (2) S/P tonsillectomy Status: Chronic Family History Cancer Diabetes mellitus MOTHER GRANDMOTHER UNCLE AUNT Gallbladder disease Heart disease Hypertension MOTHER FATHER Lung disease Social History Smoking Status: Current Every Day Smoker Alcohol Use: none Drug Use: none Marital Status: Housing status: lives with family 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, 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) Immunizations History of Influenza Vaccine: Yes Influenza Vaccine Date: Jul 24, 2016 History of Tetanus Vaccine?: Unknown History of Pneumococcal: Yes Pneumococcal Date: Feb 09, 2006 History of Hepatitis B Vaccine: No Multi-Drug Resistant Organisms History of MDRO: No Allergies Coded Allergies: Cephalosporins (Verified Allergy, Unknown, AR, 04/07/17) Home Medications Scheduled Aripiprazole (Aripiprazole), 15 MG PO DAILY Aspirin (Aspirin 81), 81 MG PO QAM Gabapentin (Gabapentin), 800 MG PO TID Insulin Aspart (Novolog Flexpen), 1 DOSE SC PC Insulin Detemir (Levemir Flextouch), 20 UNITS SC BID Quetiapine Fumarate (Seroquel), 100 MG PO HS Venlafaxine Hcl (Effexor Extended Rel), 150 MG PO DAILY Review of Systems As per history of present illness, all other ROS negative Physical Exam Vital Signs Date Time Temp Pulse Resp B/P (MAP) Pulse Ox O2 Delivery O2 Flow Rate FiO2 7/2/17 23:30 36.9 110 16 145/71 (95) 92 Room Air 04/18/17 23:03 114 20 98/36 95 Room Air 04/18/17 22:07 112 04/18/17 21:55 96 Room Air 04/18/17 20:55 36.8 130 20 99/58 94 Room Air General Appearance: + obese, + pertinent finding (looks older than stated age, lethargy) Head: normocephalic Eyes: normal inspection Neck: + pertinent finding (short) Respiratory/Chest: + decreased breath sounds Cardiovascular: + tachycardia Abdomen/GI: non tender, soft Extremities/Musculoskelatal: + pertinent finding (tender violaceous swelling left second digit of the foot) Neurologic/Psych: + pertinent finding (coherent but somewaht lethargic) Skin: normal color, + pertinent finding Diagnostics Laboratory Results Results Past 24 Hours Test 04/18/17 21:45 Range/Units White Blood Count 11.10 4.8-10.8 K/uL Red Blood Count 4.83 4.7-6.1 M/uL Hemoglobin 14.3 14.0-18.0 g/dL Hematocrit 40.9 42-52 % Mean Corpuscular Volume 84.7 80-100 fL Mean Corpuscular Hemoglobin 29.6 25-34 pg Mean Corpuscular Hemoglobin Concent 35.0 32-36 g/dl Platelet Count 248 130-400 K/uL Mean Platelet Volume 8.7 7.4-10.4 fL Neutrophils (%) (Auto) 68.7 % Lymphocytes (%) (Auto) 17.9 % Monocytes (%) (Auto) 9.1 % Eosinophils (%) (Auto) 3.1 % Basophils (%) (Auto) 0.3 % Neutrophils # (Auto) 7.63 1.4-6.5 K/uL Lymphocytes # (Auto) 1.99 1.2-3.4 K/uL Monocytes # (Auto) 1.01 0.11-0.59 K/uL Eosinophils # (Auto) 0.34 0-0.5 K/uL Basophils # (Auto) 0.03 0-0.2 K/uL RDW Standard Deviation 40.2 36.4-46.3 fL RDW Coefficient of Variation 13.1 11.5-14.5 % Immature Granulocyte % (Auto) 0.9 % Immature Granulocyte # (Auto) 0.10 0.00-0.02 K/uL Sodium Level 139 136-145 mmol/L Potassium Level 3.5 3.5-5.1 mmol/L Chloride Level 103 98-107 mmol/L Carbon Dioxide Level 27 21-32 mmol/L Anion Gap 9.0 3-11 mmol/L Blood Urea Nitrogen 15 7-18 mg/dl Creatinine 0.88 0.60-1.40 mg/dl Est Creatinine Clear Calc Drug Dose 151.6 ml/min Estimated GFR () 121.9 Estimated GFR (Non- 105.2 BUN/Creatinine Ratio 17.5 10-20 Random Glucose 170 70-99 mg/dl Calcium Level 8.9 8.5-10.1 mg/dl Magnesium Level 1.7 1.8-2.4 mg/dl Total Bilirubin 0.4 0.2-1 mg/dl Aspartate Amino Transf (AST/SGOT) 17 15-37 U/L Alanine Aminotransferase (ALT/SGPT) 39 12-78 U/L Alkaline Phosphatase 71 45-117 U/L Total Protein 7.5 6.4-8.2 gm/dl Albumin 3.6 3.4-5.0 gm/dl Globulin 3.9 2.5-4.0 gm/dl Albumin/Globulin Ratio 0.9 0.9-2 Microbiology Results 04/18/17 Blood Culture, Received Pending 04/18/17 Blood Culture, Received Pending Diagnostic Radiology LEFT SECOND TOE 3 VIEWS CLINICAL HISTORY: Second toe erythema and swelling. FINDINGS: 3 views of the left second toe are correlated with radiograph is of the left foot dated 01/09/2017. The skeletal structures are well mineralized. There is a nondistracted fracture through the midshaft of the second middle phalanx. Overlying soft tissue edema is noted. No additional fracture is seen. The second metatarsophalangeal and interphalangeal joints are well-maintained. A bone island is incidentally noted in the distal third metatarsal. IMPRESSION: Nondistracted fracture through the midshaft of the second middle phalanx as above. Impression Assessment and Plan AP Sepsis secondary to left second toe cellulitis Fracture on plain x-ray Patient does not recall history of trauma Hypertension BP on the lower side DM 2 insulin-requiring, still suboptimal baseline control as of recent hemoglobin A1c but significantly improved over the year Ongoing tobacco abuse Mood disorder, stable as per px - patient just discharged from the [facility] ro substance abuse GMF IV fluids Cultures, doxycycline trial Orthopedics consult Re left second toe fracture Local measures for cellulitis Urine tox, check alcohol level Basal insulin, ISS BG goal 140-180 Nicotine patch DVT prophylaxis Lovenox subcutaneous Full code VTE Prophylaxis VTE Risk Assessment Done? Y/N: Yes Risk Level: Moderate
[2017-04-18] MEDS: INSULIN ASPART 100 UNITS/ML 3 ML PEN SC SCH (23:59)
[2017-04-19] MEDS ORDERED: DOXYCYCLINE IV 100 MG in DEXTROSE 5% 100ML 100 ML IV ONE ×2
[2017-04-19 00:11] VITALS: BP 140/77; PULSE 110
[2017-04-19] MEDS ORDERED: POTASSIUM CHLORIDE 20 MEQ TABCR PO STA (00:16)
[2017-04-19] MEDS: NSS + 20MEQ KCL 1000ML 1,000 ML IV SCH ×2 (01:02→04:13)
--- NOTE | 2017-04-19 02:26 | EMERGENCY ROOM VISIT NOTE ---
History First contact with patient: 21:02 Chief Complaint: TOE PAIN, INJURY Stated Complaint: SEPSIS History of Present Illness The patient is a 41 year old male who presents to the Emergency Room via private vehicle with complaints of "toe pain, injury". The patient states that he is a diabetic, and earlier today around 10:30 11 AM he looked down and noticed that his right second toe is red and painful. He states that [place] today, and the foot became more painful. He notes that the toe will become numb at times. He states that he has been out of the hospital over the past month secondary to lithium toxicity, acute renal failure. He denies any nausea, vomiting, fevers, chills, chest pain, shortness of breath. Review of Systems A complete 10-point Review of Systems was discussed with the patient, with pertinent positives and negatives listed in the History of Present Illness. All remaining Review of Systems questions can be considered negative unless otherwise specified. Past Medical/Surgical History Medical Problems: (1) Depression (2) DM type 2 (diabetes mellitus, type 2) (3) Gastroparesis (4) HTN (hypertension) (5) IBS (irritable bowel syndrome) (6) NSVT (nonsustained ventricular tachycardia) (7) Sepsis Surgical Problems: (1) S/P left knee arthroscopy (2) S/P tonsillectomy Family History Cancer Diabetes mellitus MOTHER GRANDMOTHER UNCLE AUNT Gallbladder disease Heart disease Hypertension MOTHER FATHER Lung disease Social History Smoking Status: Current Every Day Smoker Alcohol Use: heavy Drug Use: none Marital Status: Housing Status: lives with family Occupation Status: employed Current/Historical Medications Scheduled Aripiprazole (Aripiprazole), 15 MG PO DAILY Aspirin (Aspirin 81), 81 MG PO QAM Gabapentin (Gabapentin), 800 MG PO TID Insulin Aspart (Novolog Flexpen), 1 DOSE SC PC Insulin Detemir (Levemir Flextouch), 20 UNITS SC BID Quetiapine Fumarate (Seroquel), 100 MG PO HS Venlafaxine Hcl (Effexor Extended Rel), 150 MG PO DAILY Allergies Coded Allergies: Cephalosporins (Verified Allergy, Unknown, RA, 04/07/17) Physical Exam Vital Signs Date Time Temp Pulse Resp B/P (MAP) Pulse Ox O2 Delivery O2 Flow Rate FiO2 04/18/17 22:07 112 04/18/17 21:55 96 Room Air 04/18/17 20:55 36.8 130 20 99/58 94 Room Air Pain Rating (0-10): 0 Physical Exam VITAL SIGNS - Vital signs and nursing notes were reviewed. Patient is afebrile , hypotensive at 99/58, tachycardic at a rate of 130 bpm, and is saturating on room air 94%. GENERAL -41-year-old male appearing his stated age who is in no acute distress. Communicates well with provider and answers questions appropriately. SKIN - the entire left second toe is erythematous and edematous. HEAD - NC/AT. EYES - Sclera anicteric. Palpebral conjunctiva pink and moist with no injection noted. EARS - No deformities of external structures noted on gross examination bilaterally. NOSE - Midline and without cyanosis. No epistaxis or purulent drainage noted. MOUTH/OROPHARYNX - Without perioral cyanosis. EXTREMITIES - No clubbing or peripheral cyanosis. No pretibial edema present. There is tenderness to palpation on the left second digit. +5/5 strength noted in UE/LE bilaterally. Medical Decision & Procedures ER Provider Diagnostic Interpretation: LEFT SECOND TOE 3 VIEWS CLINICAL HISTORY: Second toe erythema and swelling. FINDINGS: 3 views of the left second toe are correlated with radiograph is of the left foot dated 01/09/2017. The skeletal structures are well mineralized. There is a nondistracted fracture through the midshaft of the second middle phalanx. Overlying soft tissue edema is noted. No additional fracture is seen. The second metatarsophalangeal and interphalangeal joints are well-maintained. A bone island is incidentally noted in the distal third metatarsal. IMPRESSION: Nondistracted fracture through the midshaft of the second middle phalanx as above. Electronically signed by: Jaydon Wallace M.D. 04/18/2017 10:43 PM Dictated Date/Time: 04/18/2017 10:41 PM Laboratory Results 04/18/17 21:45 Red Blood Count 4.83, Mean Corpuscular Volume 84.7, Mean Corpuscular Hemoglobin 29.6, Mean Corpuscular Hemoglobin Concent 35.0, Mean Platelet Volume 8.7, Neutrophils (%) (Auto) 68.7, Lymphocytes (%) (Auto) 17.9, Monocytes (%) (Auto) 9.1, Eosinophils (%) (Auto) 3.1, Basophils (%) (Auto) 0.3, Neutrophils # (Auto) 7.63, Lymphocytes # (Auto) 1.99, Monocytes # (Auto) 1.01, Eosinophils # (Auto) 0.34, Basophils # (Auto) 0.03 04/18/17 21:45 Test 04/18/17 21:45 White Blood Count 11.10 K/uL (4.8-10.8) Red Blood Count 4.83 M/uL (4.7-6.1) Hemoglobin 14.3 g/dL (14.0-18.0) Hematocrit 40.9 % (42-52) Mean Corpuscular Volume 84.7 fL (80-100) Mean Corpuscular Hemoglobin 29.6 pg (25-34) Mean Corpuscular Hemoglobin Concent 35.0 g/dl (32-36) Platelet Count 248 K/uL (130-400) Mean Platelet Volume 8.7 fL (7.4-10.4) Neutrophils (%) (Auto) 68.7 % Lymphocytes (%) (Auto) 17.9 % Monocytes (%) (Auto) 9.1 % Eosinophils (%) (Auto) 3.1 % Basophils (%) (Auto) 0.3 % Neutrophils # (Auto) 7.63 K/uL (1.4-6.5) Lymphocytes # (Auto) 1.99 K/uL (1.2-3.4) Monocytes # (Auto) 1.01 K/uL (0.11-0.59) Eosinophils # (Auto) 0.34 K/uL (0-0.5) Basophils # (Auto) 0.03 K/uL (0-0.2) RDW Standard Deviation 40.2 fL (36.4-46.3) RDW Coefficient of Variation 13.1 % (11.5-14.5) Immature Granulocyte % (Auto) 0.9 % Immature Granulocyte # (Auto) 0.10 K/uL (0.00-0.02) Anion Gap 9.0 mmol/L (3-11) Est Creatinine Clear Calc Drug Dose 151.6 ml/min Estimated GFR () 121.9 Estimated GFR (Non- 105.2 BUN/Creatinine Ratio 17.5 (10-20) Calcium Level 8.9 mg/dl (8.5-10.1) Magnesium Level 1.7 mg/dl (1.8-2.4) Total Bilirubin 0.4 mg/dl (0.2-1) Aspartate Amino Transf (AST/SGOT) 17 U/L (15-37) Alanine Aminotransferase (ALT/SGPT) 39 U/L (12-78) Alkaline Phosphatase 71 U/L (45-117) Total Protein 7.5 gm/dl (6.4-8.2) Albumin 3.6 gm/dl (3.4-5.0) Globulin 3.9 gm/dl (2.5-4.0) Albumin/Globulin Ratio 0.9 (0.9-2) Medications Administered Medications (Trade) Dose Ordered Sig/Mario Alberto Route Start Time Stop Time Status Last Admin Dose Admin Sodium Chloride 1,000 ml @ 999 mls/hr Q1H1M STAT IV 04/18/17 21:12 04/18/17 22:12 DC 04/18/17 21:12 999 MLS/HR Oxycodone HCl (Roxicodone Immediate Rel Tab) 5 mg NOW STAT PO 04/18/17 21:12 04/18/17 21:14 DC 04/18/17 21:12 5 MG Piperacillin Sod/ Tazobactam Sod (Zosyn Iv) 4.5 gm NOW STAT IV 04/18/17 22:29 04/18/17 22:33 DC 04/18/17 22:29 4.5 GM Medical Decision Patient was seen and evaluated as above. After obtaining a thorough history and physical examination IV access was initiated and the above workup was performed. Patient presents to us today with a reddened left second digit, and concerning vital signs. He is hypotensive, and tachycardic. He'll be considered sepsis until proven otherwise. Point care lactic was elevated above 2. He'll be given Zosyn and vancomycin secondary to concern over sepsis. He was bolused with fluids. Radiograph reveals fracture. Patient will be admitted for further evaluation and management. Case was discussed with my attending, and subsequently the hospitalist. Please refer to further documentation regarding his stay. He does have a mild leukocytosis, no anemia, kidney function and liver function did not reveal any emergent have abnormalities at this time. He was given 1 tablet of OxyIR for his pain. In evaluation treatment this patient following differential diagnoses were entertained: Cellulitis, sepsis, fracture, among others. Impression Primary Impression: Sepsis Departure Information Dispostion Admitted as an inpatient Condition FAIR Referrals Velasquez Valencia M.D. (PCP) Forms WORK / SCHOOL INSTRUCTIONS, HOME CARE DOCUMENTATION FORM, IMPORTANT VISIT INFORMATION Patient Instructions [facility]
[2017-04-19 03:54] LABS: BASO % 0.3 %; BASO ABS # 0.03 K/uL (0-0.2); COMPLETE YES; EOS % 3.4 %; HEMATOCRIT 37.5 % (42-52); IG% 0.9 %; LYMPH % 16.6 %; LYMPH ABS # 1.74 K/uL (1.2-3.4); MEAN CELL VOLUME 84.8 fL (80-100); MEAN CORPUSCULAR HEMOGLOBIN 28.1 pg (25-34); MEAN CORPUSCULAR HGB CONC 33.1 g/dl (32-36); MEAN PLATELET VOLUME 8.6 fL (7.4-10.4); MONO % 9.7 %; NEUT % 69.1 %; PLATELET COUNT 222 K/uL (130-400); RED BLOOD COUNT 4.42 M/uL (4.7-6.1); WHITE BLOOD COUNT 10.51 K/uL (4.8-10.8)
[2017-04-19 04:06] LABS: PROTHROMBIN TIME (PATIENT) 10.7 SECONDS (9.0-12.0)
[2017-04-19 04:17] LABS: BUN/CREATININE RATIO 18.8 (10-20); CREATININE 0.78 mg/dl (0.60-1.40); POTASSIUM 4.1 mmol/L (3.5-5.1)
[2017-04-19] MEDS ORDERED: SODIUM CHLORIDE 0.9% 1000ML 1,000 ML IV ONE (04:30)
[2017-04-19 04:40] VITALS: BP 129/81; PULSE 89
[2017-04-19 06:33] LABS: URINE APPEARANCE CLEAR (CLEAR); URINE BILIRUBIN NEG (NEG); URINE COLOR DK YELLOW; URINE NITRITE NEG (NEG); URINE PH 5.5 (4.5-7.5); URINE SPECIFIC GRAVITY 1.027 (1.000-1.030); UROBILINOGEN NEG (NEG); ZZUR CULT IF INDIC CLEAN CATCH NO
[2017-04-19 06:40] LABS: MANUAL MICROSCOPIC REQUIRED? NO; REVIEW REQ? NO
[2017-04-19 06:50] LABS: BENZODIAZEPINE, URINE NEG (NEG); COCAINE,URINE NEG (NEG); PHENCYCLIDINE, URINE NEG (NEG)
[2017-04-19 06:57] VITALS: BP 116/71; PULSE 95; TEMP 36.4; O2SAT 97
[2017-04-19] MEDS: VENLAFAXINE HCL XR 150 MG CAPXR PO SCH (08:18)
[2017-04-19] MEDS: ASPIRIN 81 MG ECTAB PO SCH (08:18)
[2017-04-19] MEDS: ARIPIprazole TAB 15 MG TAB PO SCH (08:18)
[2017-04-19] MEDS: GABAPENTIN 400 MG CAP PO SCH ×3 (08:18→20:16)
[2017-04-19] MEDS: ENOXAPARIN 40 MG/0.4 ML SYR SQ SCH (08:18)
[2017-04-19] MEDS: NICOTINE 21 MG/24 HR TDSY TD SCH ×2 (08:19→08:25)
[2017-04-19] MEDS: INSULIN ASPART 100 UNITS/ML 3 ML PEN SC SCH ×4 (08:20→20:22)
[2017-04-19] MEDS: INSULIN DETEMIR FLEXPEN/FLEX TOUCH 100 UNITS/ML 3ML SC SCH ×2 (08:21→20:21)
--- NOTE | 2017-04-19 08:56 | Medical Consult ---
Consultation Date of Consultation: Apr 19, 2017. Attending Physician: Sunni Canseco DO Reason for Consultation: Fx Left 2nd toe History of Present Illness Patient is a 41-year-old white male with history of type 2 diabetes on insulin. The patient states that he was at [facility] yesterday and had been swimming. He states that prior to this as he was walking down some concrete stairs he ended up stubbing his great toe and possibly his second toe. He states that even with his neuropathy he had some pain off and on in that second toe. [place] states that his second toe starting to hurt more and on inspection, he noticed that the toe was very red. He felt he should have the toe examined and came to the emergency room here at [facility]. X-rays were taken and was found that he had a fracture of the second toe which we have now been asked to evaluate. Past Medical/Surgical History PMH/PSH: (1) Depression (2) DM type 2 (diabetes mellitus, type 2) (3) Gastroparesis (4) HTN (hypertension) (5) IBS (irritable bowel syndrome) (6) NSVT (nonsustained ventricular tachycardia) (7) Sepsis Surgical Problems: (1) S/P left knee arthroscopy (2) S/P tonsillectomy Medical Problems: (1) Abdominal pain Status: Acute (2) Acute exacerbation of chronic low back pain Status: Acute (3) Acute renal failure Status: Acute (4) Acute renal failure Status: Acute (5) Back pain Status: Acute (6) Bilateral cellulitis of lower leg Status: Acute (7) Chest pain Status: Acute (8) Chest pain Status: Acute (9) Chronic abdominal pain Status: Acute (10) Contusion of left leg Status: Acute (11) Cough Status: Acute (12) Dehydration Status: Acute (13) Dehydration Status: Acute (14) Dehydration Status: Acute (15) Dehydration Status: Acute (16) Diabetes Status: Acute (17) Elevated d-dimer Status: Acute (18) Hypotension Status: Acute (19) Intractable low back pain Status: Acute (20) Left arm pain Status: Acute (21) Left elbow pain Status: Acute (22) Left sided chest pain Status: Acute (23) Left sided chest pain Status: Acute (24) Abercrombie toxicity Status: Acute (25) Lower abdominal pain Status: Acute (26) Lumbar contusion Status: Acute (27) Nausea vomiting and diarrhea Status: Acute (28) Pulmonary embolus Status: Acute (29) Renal insufficiency Status: Acute (30) Right ankle pain Status: Acute (31) Right elbow pain Status: Acute (32) Suicidal ideation Status: Acute (33) Syncope Status: Acute (34) Tachycardia Status: Acute (35) Vomiting Status: Acute Family History Cancer Diabetes mellitus MOTHER GRANDMOTHER UNCLE AUNT Gallbladder disease Heart disease Hypertension MOTHER FATHER Lung disease Social History Smoking Status: Current Every Day Smoker Drug Use: none Marital Status: Housing Status: lives with family Occupation Status: employed Allergies Coded Allergies: Cephalosporins (Verified Allergy, Unknown, AR, 04/07/17) Home Medications Aripiprazole (Aripiprazole), 15 MG PO DAILY Aspirin (Aspirin 81), 81 MG PO QAM Gabapentin (Gabapentin), 800 MG PO TID Insulin Aspart (Novolog Flexpen), 1 DOSE SC PC Insulin Detemir (Levemir Flextouch), 20 UNITS SC BID Quetiapine Fumarate (Seroquel), 100 MG PO HS Venlafaxine Hcl (Effexor Extended Rel), 150 MG PO DAILY Current Inpatient Medications Current Inpatient Medications Medications (Trade) Dose Ordered Sig/Mario Alberto Route Start Time Stop Time Status Last Admin Dose Admin Doxycycline Hyclate 100 mg/ Dextrose 110 ml @ 50 mls/hr BID@1000,2200 IV 04/19/17 10:00 04/29/17 09:59 Enoxaparin Sodium (Lovenox Inj) 40 mg Q24H SQ 04/19/17 08:00 05/19/17 07:59 04/19/17 08:18 40 MG Acetaminophen (Tylenol Tab) 650 mg Q4H PRN PO 04/18/17 23:30 05/18/17 23:29 Insulin Aspart (novoLOG ASPART) SLIDING SCALE If C... ACHS SC 04/18/17 23:59 05/18/17 23:58 04/19/17 08:20 4 UNITS Glucose (Glucose 40% Gel) 15-30 GRAMS 15 GRAMS... UD PRN PO 04/18/17 23:30 05/18/17 23:29 Glucose (Glucose Chew Tab) 4-8 Tablets 4 Tabl... UD PRN PO 04/18/17 23:30 05/18/17 23:29 Dextrose (Dextrose 50% 50ML Syringe) 25-50ML OF 50% DW IV FOR... UD PRN IV 04/18/17 23:30 05/18/17 23:29 Glucagon (Glucagon Inj) 1 mg UD PRN SQ 04/18/17 23:30 05/18/17 23:29 Aripiprazole (Abilify Tab) 15 mg DAILY PO 04/19/17 09:00 05/19/17 08:59 04/19/17 08:18 15 MG Aspirin (Ecotrin Tab) 81 mg QAM PO 04/19/17 09:00 05/19/17 08:59 04/19/17 08:18 81 MG Gabapentin (Neurontin Cap) 800 mg TID PO 04/19/17 09:00 05/19/17 08:59 04/19/17 08:18 800 MG Insulin Detemir (Levemir Flexpen/ FlexTouch) 20 units BID SC 04/19/17 09:00 05/19/17 08:59 04/19/17 08:21 20 UNITS Quetiapine Fumarate (seroQUEL TAB) 100 mg HS PO 04/19/17 21:00 05/19/17 20:59 Venlafaxine HCl (effeXOR EXTENDED REL CAP) 150 mg DAILY PO 04/19/17 09:00 05/19/17 08:59 04/19/17 08:18 150 MG Nicotine (Nicoderm Cq 21MG Patch) 1 patch QAM TD 04/19/17 09:00 05/19/17 08:59 Miscellaneous (Remove Nicoderm Patch) 1 ea HS N/A 04/19/17 21:00 05/19/17 20:59 Ondansetron HCl (Zofran Inj) 4 mg Q6H PRN IV 04/18/17 23:30 05/18/17 23:29 Tramadol HCl (Ultram Tab) not relieved ... Q6H PRN PO 04/18/17 23:30 05/18/17 23:29 Ketorolac Tromethamine (Toradol Inj) 30 mg Q6H PRN IV 04/18/17 23:30 04/23/17 23:29 Ibuprofen (Advil Tab) 400 mg Q6H PRN PO 04/18/17 23:30 05/18/17 23:29 Sodium Chloride 1,000 ml @ 80 mls/hr [id number] ONCE IV 04/19/17 04:30 04/19/17 16:59 04/19/17 04:34 80 MLS/HR Physical Exam Date Time Temp Pulse Resp B/P (MAP) Pulse Ox O2 Delivery O2 Flow Rate FiO2 04/19/17 06:57 36.4 95 20 116/71 (86) 97 Room Air 04/19/17 04:40 89 129/81 (97) 04/19/17 00:11 110 140/77 (98) 04/18/17 23:30 36.9 110 16 145/71 (95) 92 Room Air 04/18/17 23:30 36.9 110 16 140/77 95 Room Air 04/18/17 23:03 114 20 98/36 95 Room Air 04/18/17 22:07 112 04/18/17 21:55 96 Room Air 04/18/17 20:55 36.8 130 20 99/58 94 Room Air Patient is currently lying in bed and has just finished eating breakfast. He is alert and oriented 3 and in no acute distress, pleasant, and cooperative. Focusing the exam on his left foot, it is noted that his second left toe is mildly erythematous and he has some small abrasions just proximal to the toenail. There is no drainage noted at this time. He has a mild lateral deformity of the distal phalanx. The toe is somewhat tender on palpation and there are no step-offs that I can appreciate. He is able to move all the toes at this time with some discomfort in the second toe. Sensation is mostly intact but patient does have some mild neuropathy due to his Diabetes. Laboratory Results Xray Results: Nondistracted fracture through the midshaft of the second middle phalanx. Last 24 Hours Test 04/18/17 21:45 04/19/17 00:07 04/19/17 03:33 04/19/17 06:20 White Blood Count 11.10 K/uL 10.51 K/uL Red Blood Count 4.83 M/uL 4.42 M/uL Hemoglobin 14.3 g/dL 12.4 g/dL Hematocrit 40.9 % 37.5 % Mean Corpuscular Volume 84.7 fL 84.8 fL Mean Corpuscular Hemoglobin 29.6 pg 28.1 pg Mean Corpuscular Hemoglobin Concent 35.0 g/dl 33.1 g/dl Platelet Count 248 K/uL 222 K/uL Mean Platelet Volume 8.7 fL 8.6 fL Neutrophils (%) (Auto) 68.7 % 69.1 % Lymphocytes (%) (Auto) 17.9 % 16.6 % Monocytes (%) (Auto) 9.1 % 9.7 % Eosinophils (%) (Auto) 3.1 % 3.4 % Basophils (%) (Auto) 0.3 % 0.3 % Neutrophils # (Auto) 7.63 K/uL 7.27 K/uL Lymphocytes # (Auto) 1.99 K/uL 1.74 K/uL Monocytes # (Auto) 1.01 K/uL 1.02 K/uL Eosinophils # (Auto) 0.34 K/uL 0.36 K/uL Basophils # (Auto) 0.03 K/uL 0.03 K/uL RDW Standard Deviation 40.2 fL 40.5 fL RDW Coefficient of Variation 13.1 % 13.1 % Immature Granulocyte % (Auto) 0.9 % 0.9 % Immature Granulocyte # (Auto) 0.10 K/uL 0.09 K/uL Sodium Level 139 mmol/L 139 mmol/L Potassium Level 3.5 mmol/L 4.1 mmol/L Chloride Level 103 mmol/L 106 mmol/L Carbon Dioxide Level 27 mmol/L 26 mmol/L Anion Gap 9.0 mmol/L 7.0 mmol/L Blood Urea Nitrogen 15 mg/dl 15 mg/dl Creatinine 0.88 mg/dl 0.78 mg/dl Est Creatinine Clear Calc Drug Dose 151.6 ml/min 178.5 ml/min Estimated GFR () 121.9 128.1 Estimated GFR (Non- 105.2 110.6 BUN/Creatinine Ratio 17.5 18.8 Random Glucose 170 mg/dl 202 mg/dl Calcium Level 8.9 mg/dl 8.0 mg/dl Magnesium Level 1.7 mg/dl 2.0 mg/dl Total Bilirubin 0.4 mg/dl Aspartate Amino Transf (AST/SGOT) 17 U/L Alanine Aminotransferase (ALT/SGPT) 39 U/L Alkaline Phosphatase 71 U/L Total Protein 7.5 gm/dl Albumin 3.6 gm/dl Globulin 3.9 gm/dl Albumin/Globulin Ratio 0.9 Bedside Glucose 166 mg/dl Prothrombin Time 10.7 SECONDS Prothromb Time International Ratio 1.0 Lactic Acid Level 1.7 mmol/L Ethyl Alcohol mg/dL < 3.0 mg/dl Urine Color DK YELLOW Urine Appearance CLEAR Urine pH 5.5 Urine Specific [place] 1.027 Urine Protein NEG Urine Glucose (UA) 3+ Urine Ketones TRACE Urine Occult Blood NEG Urine Nitrite NEG Urine Bilirubin NEG Urine Urobilinogen NEG Urine Leukocyte Esterase NEG Urine Opiates Screen NEG Urine Methadone, Qualitative NEG Urine Barbiturates NEG Urine Phencyclidine (PCP) Level NEG Ur Amphetamine/Methamphetamine NEG MDMA (Ecstasy) Screen NEG Urine Benzodiazepines Screen NEG Urine Cocaine Metabolite NEG Urine Marijuana (THC) NEG Test 04/19/17 07:17 Bedside Glucose 181 mg/dl Assessment & Plan Assessment: Left 2nd toe nondisplace fracture of the middle phalanx Plan: X-rays have been reviewed with Dr. Shafer and plans will be to tiffany tape the toe to either the great toe or the third toe and he should wear a postop/cast shoe for now. He can be weightbearing as tolerated. Please follow- up with Dr. Shafer at [facility] in 7-10 days. Patient to call for appointment at [phone]. Thank you for this consult. Please call with any questions. I spoke with the PA regarding this matter and agree with the care plan established. Jenise Shafer DO
[2017-04-19] MEDS ORDERED: DOXYCYCLINE IV 100 MG in DEXTROSE 5% 100ML 100 ML IV SCH (10:00)
[2017-04-19 14:29] VITALS: BP 153/83; PULSE 91; TEMP 36.9; O2SAT 96
[2017-04-19] MEDS ORDERED: PHARMACY GLYCEMIC MGMT CONSULT PRN (16:10)
--- NOTE | 2017-04-19 16:13 | Progress Note ---
Medicine Progress Note Date & Time of Visit: Apr 19, 2017 at 14:35. Subjective 41 yo diabetic male presents with a fractured toe and cellulitis of the lower extremity. -tolerating PO -afebrile -pain is controlled Objective Last 8 Hrs Date Time Temp Pulse Resp B/P (MAP) Pulse Ox O2 Delivery O2 Flow Rate FiO2 04/19/17 14:29 36.9 91 20 153/83 (106) 96 Room Air 04/19/17 08:38 Room Air 04/19/17 06:57 36.4 95 20 116/71 (86) 97 Room Air Physical Exam: GEN: WNWD, in no acute distress, alert and appropriate HEENT: NC/AT, PERRL, normal sclerae CARDIO: reg rate, S1/2 heard without m/g/r LUNGS: CTA bilaterally, no crackles, rales or wheezes, good diaphragmatic excursion ABD: soft, non-tender, non-distended, no rebound or guarding, +BS EXTREMITY: RP and DP palpable 2+ bilat, no LE swelling or edema, extremities are warm and well-perfused LLE: There is redness of the 3rd toe and it is swollen and taped to the toe next to it. There is bright pink erythema spreading from the toe up the lateral side of the leg and stops at the knee. The redness does not circumvent the leg. NEURO: CN 2-12 intact, no gross focal deficits. MUSC: 5/5 strength throughout, no focal deficits SKIN: warm and dry and as above. Pt is severely sunburned on his back and face. Laboratory Results: 04/19/17 03:33 Red Blood Count 4.42, Mean Corpuscular Volume 84.8, Mean Corpuscular Hemoglobin 28.1, Mean Corpuscular Hemoglobin Concent 33.1, Mean Platelet Volume 8.6, Neutrophils (%) (Auto) 69.1, Lymphocytes (%) (Auto) 16.6, Monocytes (%) (Auto) 9.7, Eosinophils (%) (Auto) 3.4, Basophils (%) (Auto) 0.3, Neutrophils # (Auto) 7.27, Lymphocytes # (Auto) 1.74, Monocytes # (Auto) 1.02, Eosinophils # (Auto) 0.36, Basophils # (Auto) 0.03 04/19/17 03:33 Test 04/18/17 21:45 04/18/17 22:04 04/19/17 03:33 04/19/17 06:20 Total Bilirubin 0.4 mg/dl (0.2-1) Aspartate Amino Transf (AST/SGOT) 17 U/L (15-37) Alanine Aminotransferase (ALT/SGPT) 39 U/L (12-78) Alkaline Phosphatase 71 U/L (45-117) Total Protein 7.5 gm/dl (6.4-8.2) Albumin 3.6 gm/dl (3.4-5.0) Globulin 3.9 gm/dl (2.5-4.0) Albumin/Globulin Ratio 0.9 (0.9-2) Bedside Lactic Acid Venous 2.11 mmol/L (0.90-1.70) White Blood Count 10.51 K/uL (4.8-10.8) Red Blood Count 4.42 M/uL (4.7-6.1) Hemoglobin 12.4 g/dL (14.0-18.0) Hematocrit 37.5 % (42-52) Mean Corpuscular Volume 84.8 fL (80-100) Mean Corpuscular Hemoglobin 28.1 pg (25-34) Mean Corpuscular Hemoglobin Concent 33.1 g/dl (32-36) Platelet Count 222 K/uL (130-400) Mean Platelet Volume 8.6 fL (7.4-10.4) Neutrophils (%) (Auto) 69.1 % Lymphocytes (%) (Auto) 16.6 % Monocytes (%) (Auto) 9.7 % Eosinophils (%) (Auto) 3.4 % Basophils (%) (Auto) 0.3 % Neutrophils # (Auto) 7.27 K/uL (1.4-6.5) Lymphocytes # (Auto) 1.74 K/uL (1.2-3.4) Monocytes # (Auto) 1.02 K/uL (0.11-0.59) Eosinophils # (Auto) 0.36 K/uL (0-0.5) Basophils # (Auto) 0.03 K/uL (0-0.2) RDW Standard Deviation 40.5 fL (36.4-46.3) RDW Coefficient of Variation 13.1 % (11.5-14.5) Immature Granulocyte % (Auto) 0.9 % Immature Granulocyte # (Auto) 0.09 K/uL (0.00-0.02) Prothrombin Time 10.7 SECONDS (9.0-12.0) Prothromb Time International Ratio 1.0 (0.9-1.1) Anion Gap 7.0 mmol/L (3-11) Est Creatinine Clear Calc Drug Dose 178.5 ml/min Estimated GFR () 128.1 Estimated GFR (Non- 110.6 BUN/Creatinine Ratio 18.8 (10-20) Calcium Level 8.0 mg/dl (8.5-10.1) Magnesium Level 2.0 mg/dl (1.8-2.4) Ethyl Alcohol mg/dL < 3.0 mg/dl (0-3) Urine Color DK YELLOW Urine Appearance CLEAR (CLEAR) Urine pH 5.5 (4.5-7.5) Urine Specific Bowler 1.027 (1.000-1.030) Urine Protein NEG (NEG) Urine Glucose (UA) 3+ (NEG) Urine Ketones TRACE (NEG) Urine Occult Blood NEG (NEG) Urine Nitrite NEG (NEG) Urine Bilirubin NEG (NEG) Urine Urobilinogen NEG (NEG) Urine Leukocyte Esterase NEG (NEG) Urine Opiates Screen NEG (NEG) Urine Methadone, Qualitative NEG (NEG) Urine Barbiturates NEG (NEG) Urine Phencyclidine (PCP) Level NEG (NEG) Ur Amphetamine/Methamphetamine NEG (NEG) MDMA (Ecstasy) Screen NEG (NEG) Urine Benzodiazepines Screen NEG (NEG) Urine Cocaine Metabolite NEG (NEG) Urine Marijuana (THC) NEG (NEG) Test 04/19/17 11:29 04/19/17 12:09 Bedside Glucose 168 mg/dl (70-99) Lactic Acid Level 1.8 mmol/L (0.4-2.0) Date/Time Source Procedure Growth Status 04/18/17 21:53 Blood Blood Culture Pending Received Last 24 Hours Test 04/18/17 21:45 04/19/17 00:07 04/19/17 03:33 04/19/17 06:20 White Blood Count 11.10 K/uL 10.51 K/uL Red Blood Count 4.83 M/uL 4.42 M/uL Hemoglobin 14.3 g/dL 12.4 g/dL Hematocrit 40.9 % 37.5 % Mean Corpuscular Volume 84.7 fL 84.8 fL Mean Corpuscular Hemoglobin 29.6 pg 28.1 pg Mean Corpuscular Hemoglobin Concent 35.0 g/dl 33.1 g/dl Platelet Count 248 K/uL 222 K/uL Mean Platelet Volume 8.7 fL 8.6 fL Neutrophils (%) (Auto) 68.7 % 69.1 % Lymphocytes (%) (Auto) 17.9 % 16.6 % Monocytes (%) (Auto) 9.1 % 9.7 % Eosinophils (%) (Auto) 3.1 % 3.4 % Basophils (%) (Auto) 0.3 % 0.3 % Neutrophils # (Auto) 7.63 K/uL 7.27 K/uL Lymphocytes # (Auto) 1.99 K/uL 1.74 K/uL Monocytes # (Auto) 1.01 K/uL 1.02 K/uL Eosinophils # (Auto) 0.34 K/uL 0.36 K/uL Basophils # (Auto) 0.03 K/uL 0.03 K/uL RDW Standard Deviation 40.2 fL 40.5 fL RDW Coefficient of Variation 13.1 % 13.1 % Immature Granulocyte % (Auto) 0.9 % 0.9 % Immature Granulocyte # (Auto) 0.10 K/uL 0.09 K/uL Sodium Level 139 mmol/L 139 mmol/L Potassium Level 3.5 mmol/L 4.1 mmol/L Chloride Level 103 mmol/L 106 mmol/L Carbon Dioxide Level 27 mmol/L 26 mmol/L Anion Gap 9.0 mmol/L 7.0 mmol/L Blood Urea Nitrogen 15 mg/dl 15 mg/dl Creatinine 0.88 mg/dl 0.78 mg/dl Est Creatinine Clear Calc Drug Dose 151.6 ml/min 178.5 ml/min Estimated GFR () 121.9 128.1 Estimated GFR (Non- 105.2 110.6 BUN/Creatinine Ratio 17.5 18.8 Random Glucose 170 mg/dl 202 mg/dl Calcium Level 8.9 mg/dl 8.0 mg/dl Magnesium Level 1.7 mg/dl 2.0 mg/dl Total Bilirubin 0.4 mg/dl Aspartate Amino Transf (AST/SGOT) 17 U/L Alanine Aminotransferase (ALT/SGPT) 39 U/L Alkaline Phosphatase 71 U/L Total Protein 7.5 gm/dl Albumin 3.6 gm/dl Globulin 3.9 gm/dl Albumin/Globulin Ratio 0.9 Bedside Glucose 166 mg/dl Prothrombin Time 10.7 SECONDS Prothromb Time International Ratio 1.0 Lactic Acid Level 1.7 mmol/L Ethyl Alcohol mg/dL < 3.0 mg/dl Urine Color DK YELLOW Urine Appearance CLEAR Urine pH 5.5 Urine Specific Bowler 1.027 Urine Protein NEG Urine Glucose (UA) 3+ Urine Ketones TRACE Urine Occult Blood NEG Urine Nitrite NEG Urine Bilirubin NEG Urine Urobilinogen NEG Urine Leukocyte Esterase NEG Urine Opiates Screen NEG Urine Methadone, Qualitative NEG Urine Barbiturates NEG Urine Phencyclidine (PCP) Level NEG Ur Amphetamine/Methamphetamine NEG MDMA (Ecstasy) Screen NEG Urine Benzodiazepines Screen NEG Urine Cocaine Metabolite NEG Urine Marijuana (THC) NEG Test 04/19/17 07:17 04/19/17 11:29 04/19/17 12:09 Bedside Glucose 181 mg/dl 168 mg/dl Lactic Acid Level 1.8 mmol/L Date/Time Source Procedure Growth Status 04/18/17 21:53 Blood Blood Culture Pending Received 04/18/17 21:45 Blood Blood Culture - Preliminary Resulted Assessment & Plan 41 yo diabetic male presents with a fractured toe and cellulitis of the lower extremity. 1. LLE cellulitis-pt afebrile and HD stable on Doxycycline overnight. Tolerating PO and feeling well. Toes are tiffany-taped after Ortho evaluation. Initially was planning to switch to doxy PO, however, on exam there is some erythema on the lateral side of the affected leg which was not described on exam from ED provider. Appears the cellulitis spread on the doxy, and the infection nonpurulent and has a very class strep appearance. With recent hospitalization, will switch to IV Vancomycin for not only MRSA coverage but also better strep coverage, which doxycycline doesn't provide. Monitor for progression overnight. 2. Toe fracture 2/2 trauma-management per Ortho. 3. Hypotension-improved with IVF and abx since admission 4. DMII-glucose controlled, important for wound healing. Cont Levemir and ISS with carb coverage. Appreciate inpatient glycemic pharmacist recommendations. 5. Tobacco use-Nicoderm 6. Mood disorder-stable, cont home medications. 7. Sunburn-cont Aloe and Eucerin for supportive care. No blistering is present. Advised on sun protection in the future. DVT prophylaxis Lovenox subcutaneous Full code Dispo to home when cellulitis improving on PO meds. DO Ronnie Edwards Hospitalist Consultants: Ortho Current Inpatient Medications: Current Inpatient Medications Medications (Trade) Dose Ordered Sig/Mario Alberto Route Start Time Stop Time Status Last Admin Dose Admin Doxycycline Hyclate 100 mg/ Dextrose 110 ml @ 50 mls/hr BID@1000,2200 IV 04/19/17 10:00 04/29/17 09:59 04/19/17 10:04 50 MLS/HR Enoxaparin Sodium (Lovenox Inj) 40 mg Q24H SQ 04/19/17 08:00 05/19/17 07:59 04/19/17 08:18 40 MG Acetaminophen (Tylenol Tab) 650 mg Q4H PRN PO 04/18/17 23:30 05/18/17 23:29 Insulin Aspart (novoLOG ASPART) SLIDING SCALE If C... ACHS SC 04/18/17 23:59 05/18/17 23:58 04/19/17 13:04 4 UNITS Glucose (Glucose 40% Gel) 15-30 GRAMS 15 GRAMS... UD PRN PO 04/18/17 23:30 05/18/17 23:29 Glucose (Glucose Chew Tab) 4-8 Tablets 4 Tabl... UD PRN PO 04/18/17 23:30 05/18/17 23:29 Dextrose (Dextrose 50% 50ML Syringe) 25-50ML OF 50% DW IV FOR... UD PRN IV 04/18/17 23:30 05/18/17 23:29 Glucagon (Glucagon Inj) 1 mg UD PRN SQ 04/18/17 23:30 05/18/17 23:29 Aripiprazole (Abilify Tab) 15 mg DAILY PO 04/19/17 09:00 05/19/17 08:59 04/19/17 08:18 15 MG Aspirin (Ecotrin Tab) 81 mg QAM PO 04/19/17 09:00 05/19/17 08:59 04/19/17 08:18 81 MG Gabapentin (Neurontin Cap) 800 mg TID PO 04/19/17 09:00 05/19/17 08:59 04/19/17 13:01 800 MG Insulin Detemir (Levemir Flexpen/ FlexTouch) 20 units BID SC 04/19/17 09:00 05/19/17 08:59 04/19/17 08:21 20 UNITS Quetiapine Fumarate (seroQUEL TAB) 100 mg HS PO 04/19/17 21:00 05/19/17 20:59 Venlafaxine HCl (effeXOR EXTENDED REL CAP) 150 mg DAILY PO 04/19/17 09:00 05/19/17 08:59 04/19/17 08:18 150 MG Nicotine (Nicoderm Cq 21MG Patch) 1 patch QAM TD 04/19/17 09:00 05/19/17 08:59 Miscellaneous (Remove Nicoderm Patch) 1 ea HS N/A 04/19/17 21:00 05/19/17 20:59 Ondansetron HCl (Zofran Inj) 4 mg Q6H PRN IV 04/18/17 23:30 05/18/17 23:29 Tramadol HCl (Ultram Tab) not relieved ... Q6H PRN PO 04/18/17 23:30 05/18/17 23:29 Ketorolac Tromethamine (Toradol Inj) 30 mg Q6H PRN IV 04/18/17 23:30 04/23/17 23:29 Ibuprofen (Advil Tab) 400 mg Q6H PRN PO 04/18/17 23:30 05/18/17 23:29 Sodium Chloride 1,000 ml @ 80 mls/hr [id number] ONCE IV 04/19/17 04:30 04/19/17 16:59 04/19/17 04:34 80 MLS/HR
[2017-04-19] MEDS ORDERED: EUCERIN CR 120 GM JAR EXT PRN (16:15)
[2017-04-19] MEDS ORDERED: VANCOMYCIN CONSULT ACTIVE PRN (16:30)
[2017-04-19] MEDS ORDERED: VANCOMYCIN INJ 2,800 MG in SODIUM CHLORIDE 0.9% 500ML 500 ML IV ONE (17:00)
--- NOTE | 2017-04-19 18:56 | Pharmacy Progress Note ---
Pharmacy Antibiotic Consult Date of Service: Apr 19, 2017. Pharmacy Dosing Scope Pharmacy is consulted to initiate Vancomycin IV dosing therapy, order appropriate labs and adjust drug dose/frequency. Subjective The patient is a 41 year old male admitted on Apr 18, 2017 at 22:52 with LLE cellulitis and toe fracture. Objective Height (Feet): 6 Height (Inches): 3.00 Weight (Kilograms): 131.600 Lab Results (24hrs): Test 04/18/17 21:45 04/18/17 22:04 04/19/17 03:33 04/19/17 06:20 White Blood Count 11.10 K/uL (4.8-10.8) 10.51 K/uL (4.8-10.8) Red Blood Count 4.83 M/uL (4.7-6.1) 4.42 M/uL (4.7-6.1) Hemoglobin 14.3 g/dL (14.0-18.0) 12.4 g/dL (14.0-18.0) Hematocrit 40.9 % (42-52) 37.5 % (42-52) Mean Corpuscular Volume 84.7 fL (80-100) 84.8 fL (80-100) Mean Corpuscular Hemoglobin 29.6 pg (25-34) 28.1 pg (25-34) Mean Corpuscular Hemoglobin Concent 35.0 g/dl (32-36) 33.1 g/dl (32-36) Platelet Count 248 K/uL (130-400) 222 K/uL (130-400) Mean Platelet Volume 8.7 fL (7.4-10.4) 8.6 fL (7.4-10.4) Neutrophils (%) (Auto) 68.7 % 69.1 % Lymphocytes (%) (Auto) 17.9 % 16.6 % Monocytes (%) (Auto) 9.1 % 9.7 % Eosinophils (%) (Auto) 3.1 % 3.4 % Basophils (%) (Auto) 0.3 % 0.3 % Neutrophils # (Auto) 7.63 K/uL (1.4-6.5) 7.27 K/uL (1.4-6.5) Lymphocytes # (Auto) 1.99 K/uL (1.2-3.4) 1.74 K/uL (1.2-3.4) Monocytes # (Auto) 1.01 K/uL (0.11-0.59) 1.02 K/uL (0.11-0.59) Eosinophils # (Auto) 0.34 K/uL (0-0.5) 0.36 K/uL (0-0.5) Basophils # (Auto) 0.03 K/uL (0-0.2) 0.03 K/uL (0-0.2) RDW Standard Deviation 40.2 fL (36.4-46.3) 40.5 fL (36.4-46.3) RDW Coefficient of Variation 13.1 % (11.5-14.5) 13.1 % (11.5-14.5) Immature Granulocyte % (Auto) 0.9 % 0.9 % Immature Granulocyte # (Auto) 0.10 K/uL (0.00-0.02) 0.09 K/uL (0.00-0.02) Sodium Level 139 mmol/L (136-145) 139 mmol/L (136-145) Potassium Level 3.5 mmol/L (3.5-5.1) 4.1 mmol/L (3.5-5.1) Chloride Level 103 mmol/L (98-107) 106 mmol/L (98-107) Carbon Dioxide Level 27 mmol/L (21-32) 26 mmol/L (21-32) Anion Gap 9.0 mmol/L (3-11) 7.0 mmol/L (3-11) Blood Urea Nitrogen 15 mg/dl (7-18) 15 mg/dl (7-18) Creatinine 0.88 mg/dl (0.60-1.40) 0.78 mg/dl (0.60-1.40) Est Creatinine Clear Calc Drug Dose 151.6 ml/min 178.5 ml/min Estimated GFR () 121.9 128.1 Estimated GFR (Non- 105.2 110.6 BUN/Creatinine Ratio 17.5 (10-20) 18.8 (10-20) Random Glucose 170 mg/dl (70-99) 202 mg/dl (70-99) Calcium Level 8.9 mg/dl (8.5-10.1) 8.0 mg/dl (8.5-10.1) Magnesium Level 1.7 mg/dl (1.8-2.4) 2.0 mg/dl (1.8-2.4) Total Bilirubin 0.4 mg/dl (0.2-1) Aspartate Amino Transf (AST/SGOT) 17 U/L (15-37) Alanine Aminotransferase (ALT/SGPT) 39 U/L (12-78) Alkaline Phosphatase 71 U/L (45-117) Total Protein 7.5 gm/dl (6.4-8.2) Albumin 3.6 gm/dl (3.4-5.0) Globulin 3.9 gm/dl (2.5-4.0) Albumin/Globulin Ratio 0.9 (0.9-2) Bedside Lactic Acid Venous 2.11 mmol/L (0.90-1.70) Prothrombin Time 10.7 SECONDS (9.0-12.0) Prothromb Time International Ratio 1.0 (0.9-1.1) Lactic Acid Level 1.7 mmol/L (0.4-2.0) Ethyl Alcohol mg/dL < 3.0 mg/dl (0-3) Urine Color DK YELLOW Urine Appearance CLEAR (CLEAR) Urine pH 5.5 (4.5-7.5) Urine Specific [place]by 1.027 (1.000-1.030) Urine Protein NEG (NEG) Urine Glucose (UA) 3+ (NEG) Urine Ketones TRACE (NEG) Urine Occult Blood NEG (NEG) Urine Nitrite NEG (NEG) Urine Bilirubin NEG (NEG) Urine Urobilinogen NEG (NEG) Urine Leukocyte Esterase NEG (NEG) Urine Opiates Screen NEG (NEG) Urine Methadone, Qualitative NEG (NEG) Urine Barbiturates NEG (NEG) Urine Phencyclidine (PCP) Level NEG (NEG) Ur Amphetamine/Methamphetamine NEG (NEG) MDMA (Ecstasy) Screen NEG (NEG) Urine Benzodiazepines Screen NEG (NEG) Urine Cocaine Metabolite NEG (NEG) Urine Marijuana (THC) NEG (NEG) Test 04/19/17 11:29 04/19/17 12:09 04/19/17 17:19 Bedside Glucose 168 mg/dl (70-99) 146 mg/dl (70-99) Lactic Acid Level 1.8 mmol/L (0.4-2.0) Micro Results: Item Value Date Time Blood Culture Received 04/18/17 3460 Blood Pending Blood Culture - Preliminary Resulted 04/18/17 2145 Blood Recent Pertinent Medications Item Value Date Time Doxycycline 100 mg 04/19/17 2200 Hyclate BID/PO (Vibramycin Cap) Doxycycline 110 ml @ 50 mls/hr 04/19/17 1000 Hyclate 100 mg/ BID@1000,2200/IV 04/19/17 1004 Dextrose Vancomycin HCl 556 ml @ 200 mls/hr 04/19/17 1700 2800 mg/Sodium 1700 ONCE/IV 04/19/17 1637 Chloride Vancomycin HCl 1 ea 04/19/17 1630 (Consult) UD PRN/N/A Vancomycin HCl 556 ml @ 200 mls/hr 04/18/17 2300 2800 mg/Sodium NOW ONCE/IV Chloride Piperacillin Sod/ 4.5 gm 04/18/17 2229 Tazobactam Sod NOW STAT/IV 04/18/17 2229 (Zosyn Iv) Assessment & Plan [age] yo male with LLE cellulitis and toe fracture with failed course of oral antibiotic treatment with Doxycycline 100mg PO BID. Type II DM, recent PASHA due to lithium toxicity and BMI greater than 35 kg/m2. Will dose cautiously with lower than standard dosing at ~13.7 mg/kg since dose accumulation is likely with BMI. Loading dose: Vancomycin 2800 mg (~21.3 mg/kg) IV X 1 dose last evening then repeat this dose since decision to initiate ongoing therapy was delayed until ~ 1600 hrs today: Vancomycin 1800 mg IV every 10 hours. Goal peak level estimate: between 25 - 40 mcg/mL. Goal trough level estimate: between 13 - 20 mcg/mL. Vancomycin trough level has been ordered for: April 21 prior to the 1000 hrs dose Pharmacy will continue to follow and will adjust dose/frequency as necessary. Thank you
[2017-04-19] MEDS ORDERED: QUETIAPINE FUMARATE 100 MG TAB PO SCH (21:00)
[2017-04-19] MEDS ORDERED: DOXYCYCLINE HYCLATE 100 MG CAP PO SCH (22:00)
[2017-04-19 23:30] VITALS: BP 144/83; PULSE 92; TEMP 36.5; O2SAT 93
[2017-04-20] MEDS: VANCOMYCIN INJ 1,800 MG in SODIUM CHLORIDE 0.9% 500ML 500 ML IV SCH ×2 (03:36→13:25)
[2017-04-20 05:58] LABS: BASO % 0.8 %; BASO ABS # 0.05 K/uL (0-0.2); COMPLETE YES; EOS % 4.7 %; HEMATOCRIT 36.9 % (42-52); IG% 1.3 %; LYMPH % 32.5 %; LYMPH ABS # 2.01 K/uL (1.2-3.4); MEAN CELL VOLUME 87.2 fL (80-100); MEAN CORPUSCULAR HEMOGLOBIN 28.4 pg (25-34); MEAN CORPUSCULAR HGB CONC 32.5 g/dl (32-36); MEAN PLATELET VOLUME 9.4 fL (7.4-10.4); MONO % 9.1 %; NEUT % 51.6 %; PLATELET COUNT 200 K/uL (130-400); RED BLOOD COUNT 4.23 M/uL (4.7-6.1); WHITE BLOOD COUNT 6.18 K/uL (4.8-10.8)
[2017-04-20 06:37] LABS: CALCIUM 8.2 mg/dl (8.5-10.1); CREATININE 0.69 mg/dl (0.60-1.40); POTASSIUM 3.9 mmol/L (3.5-5.1)
[2017-04-20 07:27] VITALS: BP 116/62; PULSE 90; TEMP 36.4; O2SAT 97
[2017-04-20] MEDS: ASPIRIN 81 MG ECTAB PO SCH (08:47)
[2017-04-20] MEDS: ARIPIprazole TAB 15 MG TAB PO SCH (08:47)
[2017-04-20] MEDS: VENLAFAXINE HCL XR 150 MG CAPXR PO SCH (08:47)
[2017-04-20] MEDS: ENOXAPARIN 40 MG/0.4 ML SYR SQ SCH (08:48)
[2017-04-20] MEDS: GABAPENTIN 400 MG CAP PO SCH ×2 (08:48→13:26)
[2017-04-20] MEDS: INSULIN ASPART 100 UNITS/ML 3 ML PEN SC SCH ×3 (08:55→17:34)
[2017-04-20] MEDS: INSULIN DETEMIR FLEXPEN/FLEX TOUCH 100 UNITS/ML 3ML SC SCH (08:56)
[2017-04-20] MEDS: NICOTINE 21 MG/24 HR TDSY TD SCH (08:57)
--- NOTE | 2017-04-20 12:50 | Orthopedic Progress Note ---
Orthopedic Progress Note Date of Service Apr 20, 2017. Subjective Reports: feeling well, Denies: complaints, chest pain, SOB, nausea / vomiting, light headedness, calf pain Additional Notes: Foot and leg redness and swelliong improving. No pain in the foot or toes due to neuropathy. No fevers or chills. Objective calves soft nontender, capillary refill less than 2 sec., dressing C/D/I, A&O x3 , toes mobile Significant stocking neuropathy B LE. Pen line evident left lateral leg and dorsal foot with diminished erythema w/in zone of demarcation. DP/PT 2/4 B LE. Tiffany taping clean and dry 1st/2nd toes. No skin breakdodwn. Date Time Temp Pulse Resp B/P (MAP) Pulse Ox O2 Delivery O2 Flow Rate FiO2 04/20/17 08:50 Room Air 04/20/17 07:27 36.4 90 18 116/62 (80) 97 Room Air 04/20/17 00:27 Room Air 04/19/17 23:30 36.5 92 16 144/83 (103) 93 Room Air 04/19/17 16:00 Room Air 04/19/17 14:29 36.9 91 20 153/83 (106) 96 Room Air Laboratory Results 24 Hours: Test 04/20/17 05:08 White Blood Count 6.18 K/uL Red Blood Count 4.23 M/uL Hemoglobin 12.0 g/dL Hematocrit 36.9 % Mean Corpuscular Volume 87.2 fL Mean Corpuscular Hemoglobin 28.4 pg Mean Corpuscular Hemoglobin Concent 32.5 g/dl Platelet Count 200 K/uL Mean Platelet Volume 9.4 fL Neutrophils (%) (Auto) 51.6 % Lymphocytes (%) (Auto) 32.5 % Monocytes (%) (Auto) 9.1 % Eosinophils (%) (Auto) 4.7 % Basophils (%) (Auto) 0.8 % Neutrophils # (Auto) 3.19 K/uL Lymphocytes # (Auto) 2.01 K/uL Monocytes # (Auto) 0.56 K/uL Eosinophils # (Auto) 0.29 K/uL Basophils # (Auto) 0.05 K/uL Assessment & Plan Assessment: Left foot 2nd proximal phalanx fracture w/ tiffany taping Cellulitis L LE-improving on IV anbx Significant B LE stocking neuropathy DM II Plan: Change Tiffany taping QOD WBAT in Post-Op shoe L LE. Daily foot checks Elevate foot daily until swelling subsides F/U w/ Dr Shafer in clinic 7-12 days after D/C from hospital Will reassess as outpatient. Thank you for consult. Jenise Shafer DO
--- NOTE | 2017-04-20 13:32 | Pharmacy Progress Note ---
Glycemic Control Intl Consult Date of Service Apr 20, 2017. Scope Glycemic Pharmacist consulted by Dr Canseco on 04/19/17 for glycemic control and to write orders per [facility] inpatient glycemic control protocol Objective Weight (Kilograms): 131.600 Accuchecks BSG (last 24hrs): Test 04/19/17 17:19 04/19/17 20:12 04/20/17 05:08 04/20/17 07:55 Bedside Glucose 146 mg/dl (70-99) 190 mg/dl (70-99) 165 mg/dl (70-99) Random Glucose 168 mg/dl (70-99) Test 04/20/17 11:18 Bedside Glucose 184 mg/dl (70-99) Laboratory Data (last 24hrs) Test 04/20/17 05:08 Anion Gap 7.0 mmol/L BUN/Creatinine Ratio 16.0 Blood Urea Nitrogen 11 mg/dl Creatinine 0.69 mg/dl Potassium Level 3.9 mmol/L Sodium Level 141 mmol/L White Blood Count 6.18 K/uL Red Blood Count 4.23 M/uL Hemoglobin 12.0 g/dL Hematocrit 36.9 % Mean Corpuscular Volume 87.2 fL Mean Corpuscular Hemoglobin 28.4 pg Mean Corpuscular Hemoglobin Concent 32.5 g/dl Platelet Count 200 K/uL Mean Platelet Volume 9.4 fL Neutrophils (%) (Auto) 51.6 % Lymphocytes (%) (Auto) 32.5 % Monocytes (%) (Auto) 9.1 % Eosinophils (%) (Auto) 4.7 % Basophils (%) (Auto) 0.8 % Neutrophils # (Auto) 3.19 K/uL Lymphocytes # (Auto) 2.01 K/uL Monocytes # (Auto) 0.56 K/uL Eosinophils # (Auto) 0.29 K/uL Basophils # (Auto) 0.05 K/uL Recent Pertinent Medications Outpatient Anti-diabetic Regimen: * Levemir 20 units BID * Novolog 6 units with meals * A1c = 7.8 % 03/21/17 The patient is currently receiving: * Basal insulin: Levemir 20 units every 12 hours * Correctional Insulin: Novolog Correction per scale ACHS Goal Range: Low 110 mg/dL - High 140 mg/dL Correction Factor: 25 mg/dL/unit * Prandial insulin: Per carb ratio of 1 unit per 9 grams CHO consumed Risk Factors for Insulin Resistance: * Infection: LLE Cellulitis, IV Vancomycin * Diet: Type 2 DM Assessment & Plan ASSESSMENT: * 41 year old type 2 diabetic male on insulin as outpatient, A1c above goal at 7.8%. Admitted with toe fracture and LLE Cellulitis, failed PO Doxy as outpatient, on IV Vancomycin. * Blood sugars just above goal range, will tighten CF and CR slightly for better glycemic control, especially in the setting of wound healing. * ADA & AACE recommend a goal blood sugar range 140-180 mg/dl for the majority of critically ill & non-critically ill patients. However, more stringent targets may be selected in individual cases. Will utilize more stringent goal of 110-140mg/dl based on patient age & comorbidities. Additionally, tighter glycemic control is warranted to facilitate wound/infection healing. PLAN FOR INPATIENT GLYCEMIC CONTROL: * Continue Levemir 20 units SQ BID * Change correction factor to 20 mg/dl/unit * Change carb ratio to 1 unit per 8 grams CHO consumed * Continuing goal range of Low 110 mg/dL - High 140 mg/dL * Please note that the plan above was derived based on current level of insulin resistance and hospital stress. These recommendations are appropriate for inpatient admission only. Plan of care upon discharge will need to be reassessed to avoid potential outpatient hypo/hyperglycemia. Thank you.
[2017-04-20 16:02] VITALS: BP 143/80; PULSE 94; TEMP 36.4; O2SAT 97
--- NOTE | 2017-04-20 16:21 | Progress Note ---
Internal Med Progress Note Date of Service: Apr 20, 2017. Provider Documentation: SUBJECTIVE: Patient is doing well No c/o pain. Redness , swelling in LLE resolved No fever, chills OBJECTIVE: Vital Signs-as noted below Exam: General-AAOX3, no distress Neck-Supple. No JVD Lungs-AEBE, no wheezing Heart-S1, S2 normal , no murmur Extremities-LLE - Erythema, Tenderness, Swelling - resolved Lab data as noted below. ASSESSMENT & PLAN: 41 year old diabetic male presents with a fractured toe and cellulitis of the lower extremity. TOE FRACTURE (SECOND MIDDLE PHALYNX) S/P TRAUMA -Per ortho- Cheo tapping QOD, Keep foot elevated to reduce swelling, Follow up in 7-12 days post discharge LLE CELLULITIS Likely secondary to above. Initially started doxycycline, but it worsened yesterday, so was switched to IV Vancomycin -Resolved redness, swelling , pain today -Okay to discharge on Doxycycline x 6 more days to complete 7 day course DM-II -Levemir, ISS MOOD DISORDER Stable Continue with home medications TOBACCO ABUSE DISORDER -Nicotine DVT PROPHYLAXIS -Lovenox SQ FULL CODE DISPOSITION Okay to discharge home Vital Signs: Date Time Temp Pulse Resp B/P (MAP) Pulse Ox O2 Delivery O2 Flow Rate FiO2 04/20/17 16:02 36.4 94 16 143/80 (101) 97 Room Air 04/20/17 08:50 Room Air 04/20/17 07:27 36.4 90 18 116/62 (80) 97 Room Air 04/20/17 00:27 Room Air 04/19/17 23:30 36.5 92 16 144/83 (103) 93 Room Air Lab Results: Results Past 24 Hours Test 04/19/17 17:19 04/19/17 20:12 04/20/17 05:08 04/20/17 07:55 Range/Units Bedside Glucose 146 190 165 70-99 mg/dl White Blood Count 6.18 4.8-10.8 K/uL Red Blood Count 4.23 4.7-6.1 M/uL Hemoglobin 12.0 14.0-18.0 g/dL Hematocrit 36.9 42-52 % Mean Corpuscular Volume 87.2 80-100 fL Mean Corpuscular Hemoglobin 28.4 25-34 pg Mean Corpuscular Hemoglobin Concent 32.5 32-36 g/dl Platelet Count 200 130-400 K/uL Mean Platelet Volume 9.4 7.4-10.4 fL Neutrophils (%) (Auto) 51.6 % Lymphocytes (%) (Auto) 32.5 % Monocytes (%) (Auto) 9.1 % Eosinophils (%) (Auto) 4.7 % Basophils (%) (Auto) 0.8 % Neutrophils # (Auto) 3.19 1.4-6.5 K/uL Lymphocytes # (Auto) 2.01 1.2-3.4 K/uL Monocytes # (Auto) 0.56 0.11-0.59 K/uL Eosinophils # (Auto) 0.29 0-0.5 K/uL Basophils # (Auto) 0.05 0-0.2 K/uL RDW Standard Deviation 42.9 36.4-46.3 fL RDW Coefficient of Variation 13.3 11.5-14.5 % Immature Granulocyte % (Auto) 1.3 % Immature Granulocyte # (Auto) 0.08 0.00-0.02 K/uL Sodium Level 141 136-145 mmol/L Potassium Level 3.9 3.5-5.1 mmol/L Chloride Level 109 98-107 mmol/L Carbon Dioxide Level 25 21-32 mmol/L Anion Gap 7.0 3-11 mmol/L Blood Urea Nitrogen 11 7-18 mg/dl Creatinine 0.69 0.60-1.40 mg/dl Est Creatinine Clear Calc Drug Dose 201.8 ml/min Estimated GFR () 134.8 Estimated GFR (Non- 116.3 BUN/Creatinine Ratio 16.0 10-20 Random Glucose 168 70-99 mg/dl Calcium Level 8.2 8.5-10.1 mg/dl Test 04/20/17 11:18 Range/Units Bedside Glucose 184 70-99 mg/dl
[2017-04-20] MEDS ORDERED: ULT50X PO (16:22)
[2017-04-20] MEDS ORDERED: DXY100 PO (16:22)
--- NOTE | 2017-04-20 16:26 | Discharge Instructions ---
Discharge Instructions Date of Service Apr 20, 2017. Admission Reason for Admission: Sepsis Discharge Discharge Diagnosis / Problem: 1. Toe (second middle phalyx fracture) 2. LLE cellulitis Discharge Goals Goal(s): Improve function Activity Recommendations Activity Limitations: per Instructions/Follow-up section (as per ortho instructions) . Instructions / Follow-Up Instructions / Follow-Up MEDICATION CHANGESl: 1. New medication- Doxycycline 100 mg PO BID x 6 more days to complete course of 7 days of antibiotics 2. New medication- Motrin as needed for mild-moderate pain, tramadol for severe pain ORTHO INSTRUCTIONS- 1. Cheo tapping every other day as instructed 2. Keep foot elevated till swelling subsides 3. Weight bearing as tolerated in post op shoe 4. Daily foot checks FOLLOW UP 1. Follow up with PCP in 1 week. We will call you for appt date/time 2. Follow up with orthopedics in 7-12 days Current Hospital Diet Patient's current hospital diet: Diabetes Type 2 Diet Discharge Diet Recommended Diet: AHA Diet (Heart Healthy), Low Sodium Diet (2gm Na), Diabetes Type 2 Diet Pending Studies Studies pending at discharge: no Laboratory Results Hemoglobin A1c Test 03/21/17 05:45 Range/Units Estimated Average Glucose 177 mg/dl Hemoglobin A1c 7.8 H 4.5-5.6 % Medical Emergencies . Who to Call and When: Medical Emergencies: If at any time you feel your situation is an emergency, please call 911 immediately. . Non-Emergent Contact Non-Emergency issues call your: Primary Care Provider . . "Provider Documentation" section prepared by Renuka Freeman. . VTE Core Measure Inpt VTE Proph given/why not?: Enoxaparin (Lovenox)SQ
--- NOTE | 2017-04-20 16:29 | Discharge Summary ---
Discharge Summary Date of Service Apr 20, 2017. Discharge Summary Admission Date: Apr 18, 2017 at 22:52 Discharge Date: Apr 20, 2017 Discharge Disposition: Home Principal Diagnosis: 1. Toe (Left second middle phalynx) fracture post trauma 2. LLE cellulitis Secondary Diagnoses/Problems: 1. DM-2 2. Mood disorder 3. Tobacco abuse disorder Procedures: X ray IV antibiotics Consultations: Orthopedics Pending Studies/Follow-Up: Instructions / Follow-Up MEDICATION CHANGESl: 1. New medication- Doxycycline 100 mg PO BID x 6 more days to complete course of 7 days of antibiotics 2. New medication- Motrin as needed for mild-moderate pain, tramadol for severe pain ORTHO INSTRUCTIONS- 1. Cheo tapping every other day as instructed 2. Keep foot elevated till swelling subsides 3. Weight bearing as tolerated in post op shoe 4. Daily foot checks FOLLOW UP 1. Follow up with PCP in 1 week. We will call you for appt date/time 2. Follow up with orthopedics in 7-12 days Medication Reconciliation New Medications: Doxycycline Hyclate (Doxycycline Hyclate) 100 Mg Cap 100 MG PO BID for 6 Days, TAB Tramadol HCl (Tramadol HCl) 50 Mg Tab 25 MG PO Q8H PRN for Pain, #20 TAB Continued Medications: Aripiprazole (Aripiprazole) 15 Mg Tab 15 MG PO DAILY Aspirin (Aspirin 81) 81 Mg Tab 81 MG PO QAM Gabapentin (Gabapentin) 400 Mg Cap 800 MG PO TID Insulin Aspart (Novolog Flexpen) 100 Units/Ml Inj 1 DOSE SC PC INJECT 1 UNIT SUBCUTANEOUSLY PER 6 CARBS AFTER MEALS Insulin Detemir (Levemir Flextouch) 100 Unit/Ml Inj 20 UNITS SC BID Quetiapine Fumarate (Seroquel) 100 Mg Tab 100 MG PO HS Venlafaxine Hcl (Effexor Extended Rel) 150 Mg Capcr 150 MG PO DAILY Admission Information HPI (per Admitting provider): Recent confinement March 2017, for ARF, lithium toxicity. 2 weeks ago patient was at the ER for suicidality. Transferred to [facility]. Patient just released from [place] facility yesterday. Today patient noted painful swelling of the left second toe. Denies fever chills. No recollection of trauma. Patient denies chest pain or shortness of breath. At the emergency room, patient given Zosyn for possible cellulitis. Physical Exam (per Admitting): General Appearance: + obese, + pertinent finding (looks older than stated age, lethargy) Head: normocephalic Eyes: normal inspection Neck: + pertinent finding (short) Respiratory/Chest: + decreased breath sounds Cardiovascular: + tachycardia Abdomen/GI: non tender, soft Extremities/Musculoskelatal: + pertinent finding (tender violaceous swelling left second digit of the foot) Neurologic/Psych: + pertinent finding (coherent but somewaht lethargic) Skin: normal color, + pertinent finding Hospital Course 41 year old diabetic male presents with a fractured toe and cellulitis of the lower extremity. TOE FRACTURE (SECOND MIDDLE PHALYNX) S/P TRAUMA -Per ortho- Cheo tapping QOD, Keep foot elevated to reduce swelling, Follow up in 7-12 days post discharge LLE CELLULITIS Likely secondary to above. Initially started doxycycline, but it worsened yesterday, so was switched to IV Vancomycin -Resolved redness, swelling , pain today -Okay to discharge on Doxycycline x 6 more days to complete 7 day course DM-II -Levemjasmina, ISS MOOD DISORDER Stable Continue with home medications TOBACCO ABUSE DISORDER -Nicotine DVT PROPHYLAXIS -Lovenox SQ FULL CODE DISPOSITION Okay to discharge home Total time spent on discharge = 40 MINUTES This includes examination of the patient, discharge planning, medication reconciliation, and communication with other providers. Discharge Instructions Discharge Discharge Diagnosis / Problem: 1. Toe (second middle phalyx fracture) 2. LLE cellulitis Discharge Goals Goal(s): Improve function Activity Recommendations Activity Limitations: per Instructions/Follow-up section (as per ortho instructions) . Instructions / Follow-Up Instructions / Follow-Up MEDICATION CHANGESl: 1. New medication- Doxycycline 100 mg PO BID x 6 more days to complete course of 7 days of antibiotics 2. New medication- Motrin as needed for mild-moderate pain, tramadol for severe pain ORTHO INSTRUCTIONS- 1. Cheo tapping every other day as instructed 2. Keep foot elevated till swelling subsides 3. Weight bearing as tolerated in post op shoe 4. Daily foot checks FOLLOW UP 1. Follow up with PCP in 1 week. We will call you for appt date/time 2. Follow up with orthopedics in 7-12 days Current Hospital Diet Patient's current hospital diet: Diabetes Type 2 Diet Discharge Diet Recommended Diet: AHA Diet (Heart Healthy), Low Sodium Diet (2gm Na), Diabetes Type 2 Diet Pending Studies Studies pending at discharge: no Laboratory Results Hemoglobin A1c Test 03/21/17 05:45 Range/Units Estimated Average Glucose 177 mg/dl Hemoglobin A1c 7.8 H 4.5-5.6 % Medical Emergencies . Who to Call and When: Medical Emergencies: If at any time you feel your situation is an emergency, please call 911 immediately. . Non-Emergent Contact Non-Emergency issues call your: Primary Care Provider . . "Provider Documentation" section prepared by Renuka Freeman. . VTE Core Measure Inpt VTE Proph given/why not?: Enoxaparin (Lovenox)SQ
[2017-04-20 16:46] VITALS: BP 143/80; PULSE 94; TEMP 36.4; O2SAT 97
[2017-04-21] MEDS ORDERED: VANCOMYCIN TROUGH SCH (09:30)
[2017-05-17] MEDS ORDERED: EFFSR375 PO (10:30)
[2017-05-17] MEDS ORDERED: NRN100 PO (10:30)
[2017-05-17] MEDS ORDERED: NICO21DI4 EXT (10:31)
[2017-05-17] MEDS ORDERED: NCR2 MT (10:31)
[2017-07-29] MEDS ORDERED: ASPEC81 PO (09:14)
[2017-07-29] MEDS ORDERED: LPT40 PO (09:14)
== END 2017-04-20 18:15 | disposition home or self-care (01) | DRG 872 ==
LOC: C.EDB 20:37 → C.4E 22:52 → ENRESERV 23:13
PROVIDERS: ADMIT Hospitalist; ATTEND Internal Medicine
DX: A41.9 Sepsis, unspecified organism (principal); L03.032 Cellulitis of left toe; S92.525A Nondisplaced fracture of middle phalanx of left lesser toe(s), initial encounter for closed fracture; E11.40 Type 2 diabetes mellitus with diabetic neuropathy, unspecified; I10 Essential (primary) hypertension; F32.9 Major depressive disorder, single episode, unspecified; F17.200 Nicotine dependence, unspecified, uncomplicated; Z79.82 Long term (current) use of aspirin; Z79.4 Long term (current) use of insulin; Z79.899 Other long term (current) drug therapy; Z83.3 Family history of diabetes mellitus; W22.01XA Walked into wall, initial encounter

== ENCOUNTER 2017-05-03 21:00 | Emergency (ER) | payer OTHER ==
[~2017-05-03] VITALS: Ht 190.5 cm; Wt 134.4 kg
[~2017-05-03 21:00] MED LIST changes: +ARIP1TAB16 PO; +DXY100 PO; -GABA800T PO; -LVMI SC; -LXP10 PO; +NRN400 PO; -NRN600 PO; -NVLGIPEN SQ; +QUET1TAB34 PO; +ULT50X PO
[2017-05-03 21:04] VITALS: TEMP 37; Ht 190.5 cm; Wt 134.4 kg
[2017-05-03] MEDS ORDERED: ACETAMINOPHEN 500 MG TAB PO STA (21:17)
--- NOTE | 2017-05-03 21:22 | EMERGENCY ROOM VISIT NOTE ---
History Report prepared by Marianela: Laura Velásquez Under the Supervision of: Dr. Ozzy Quintanilla M.D. First contact with patient: 21:11 Chief Complaint: CHEST PAIN Stated Complaint: CHEST PAIN AND NECK PAIN History of Present Illness The patient is a 41 year old male who presents to the Emergency Room with complaints of persistent left sided chest pain that began prior to arrival. He currently rates his discomfort as an 8/10 in severity. The patient states that his chest pain is radiating up into his left neck. He states that his pain is worsened with pressing on the area and when lifting arms. The patient denies doing any recent heavy lifting. He denies ever having chest pain like this in the past. The patient states that he was recently evaluated in the hospital for sepsis and states that he had a kidney infection. He states that he had lithium toxicity 1 month ago, bu states that he no longer takes the medication. The patient states that he additionally has dealt with hypotension and dehydration due to his Lisinopril. He additionally replots a recent elevated d- dimer level over 800, but states that he tested negative for blood clots in his legs and lungs. Source of History: patient Onset: prior to arrival Position: chest (left) Symptom Intensity: 8/10 Quality: other (radiating) Timing: other (persistent) Modifying Factors (Worsening): other (pressure and raising arms) Associated Symptoms: + neck pain Review of Systems See HPI for pertinent positives & negatives. A total of 10 systems reviewed and were otherwise negative. Past Medical & Surgical Medical Problems: (1) Depression (2) DM type 2 (diabetes mellitus, type 2) (3) Gastroparesis (4) HTN (hypertension) (5) IBS (irritable bowel syndrome) (6) NSVT (nonsustained ventricular tachycardia) (7) Sepsis Surgical Problems: (1) S/P left knee arthroscopy (2) S/P tonsillectomy Family History Cancer Diabetes mellitus MOTHER GRANDMOTHER UNCLE AUNT Gallbladder disease Heart disease Hypertension MOTHER FATHER Lung disease Social History Smoking Status: Current Every Day Smoker Alcohol Use: heavy Drug Use: none Marital Status: Housing Status: lives with family Occupation Status: employed, other Current/Historical Medications Scheduled Aripiprazole (Aripiprazole), 15 MG PO DAILY Aspirin (Aspirin 81), 81 MG PO ON HOLD Gabapentin (Gabapentin), 800 MG PO TID Insulin Aspart (Novolog Flexpen), 1 DOSE SC PC Insulin Detemir (Levemir Flextouch), 30 UNITS SC BID Venlafaxine Hcl (Effexor Extended Rel), 150 MG PO DAILY Scheduled PRN Tramadol HCl (Tramadol HCl), 25 MG PO Q8H PRN for Pain Allergies Coded Allergies: Cephalosporins (Verified Allergy, Unknown, CECLOR, 04/07/17) Physical Exam Vital Signs Date Time Temp Pulse Resp B/P (MAP) Pulse Ox O2 Delivery O2 Flow Rate FiO2 05/03/17 23:02 103 16 121/52 97 Room Air 05/03/17 22:54 104 18 128/60 97 Room Air 05/03/17 22:16 109 20 159/63 97 Room Air 05/03/17 21:29 97 Room Air 05/03/17 21:15 120 05/03/17 21:15 97 Room Air 05/03/17 21:14 118 20 148/75 97 Room Air 05/03/17 21:14 97 Room Air 05/03/17 21:04 37.0 118 20 118/69 95 Room Air Physical Exam GENERAL: Patient is a healthy-appearing well-nourished male HEAD: Normocephalic atraumatic EYES: Ocular movements intact pupils equal and react to light OROPHARYNX mucous membranes are moist no exudates present no erythema or edema present NECK: Supple no nuchal rigidity CHEST WALL: Exquisitely tender to palpation to the left chest wall. Pain is worsened with moving arms up and down. CHEST: Good equal expansion LUNGS: Clear and equal to auscultation CARDIAC: Normal S1 and S2 ABDOMEN: Soft nontender no guarding BACK: No CVA tenderness EXTREMITIES: No pain upon palpation normal muscle strength in all groups no clubbing cyanosis or edema NEURO: Patient is following commands and answering questions appropriately. Alert and oriented x3 Cranial Nerves 2-12 grossly intact Medical Decision & Procedures ER Provider Diagnostic Interpretation: X-ray results as stated below per interpretation by me and the radiologist: CHEST ONE VIEW PORTABLE CLINICAL HISTORY: Chest pain. COMPARISON STUDY: Chest CT March 30, 2017. FINDINGS: Lung volumes are at the lower limits of normal. This is unchanged. No pneumothorax or pleural effusion is present. There is no consolidation. Cardiomediastinal silhouette remains normal. The appearance of the chest is unchanged. IMPRESSION: No acute cardiopulmonary findings. Electronically signed by: Serge Ghotra M.D. 05/03/2017 9:45 PM Dictated Date/Time: 05/03/2017 9:44 PM Laboratory Results 05/03/17 21:17 Red Blood Count 5.14, Mean Corpuscular Volume 86.6, Mean Corpuscular Hemoglobin 28.8, Mean Corpuscular Hemoglobin Concent 33.3, Mean Platelet Volume 9.5, Neutrophils (%) (Auto) 53.3, Lymphocytes (%) (Auto) 31.8, Monocytes (%) (Auto) 9.2, Eosinophils (%) (Auto) 4.1, Basophils (%) (Auto) 0.6, Neutrophils # (Auto) 3.61, Lymphocytes # (Auto) 2.15, Monocytes # (Auto) 0.62, Eosinophils # (Auto) 0.28, Basophils # (Auto) 0.04 05/03/17 21:17 Test 05/03/17 21:17 White Blood Count 6.77 K/uL (4.8-10.8) Red Blood Count 5.14 M/uL (4.7-6.1) Hemoglobin 14.8 g/dL (14.0-18.0) Hematocrit 44.5 % (42-52) Mean Corpuscular Volume 86.6 fL (80-100) Mean Corpuscular Hemoglobin 28.8 pg (25-34) Mean Corpuscular Hemoglobin Concent 33.3 g/dl (32-36) Platelet Count 208 K/uL (130-400) Mean Platelet Volume 9.5 fL (7.4-10.4) Neutrophils (%) (Auto) 53.3 % Lymphocytes (%) (Auto) 31.8 % Monocytes (%) (Auto) 9.2 % Eosinophils (%) (Auto) 4.1 % Basophils (%) (Auto) 0.6 % Neutrophils # (Auto) 3.61 K/uL (1.4-6.5) Lymphocytes # (Auto) 2.15 K/uL (1.2-3.4) Monocytes # (Auto) 0.62 K/uL (0.11-0.59) Eosinophils # (Auto) 0.28 K/uL (0-0.5) Basophils # (Auto) 0.04 K/uL (0-0.2) RDW Standard Deviation 43.0 fL (36.4-46.3) RDW Coefficient of Variation 13.6 % (11.5-14.5) Immature Granulocyte % (Auto) 1.0 % Immature Granulocyte # (Auto) 0.07 K/uL (0.00-0.02) Anion Gap 7.0 mmol/L (3-11) Est Creatinine Clear Calc Drug Dose 140.7 ml/min Estimated GFR () 106.4 Estimated GFR (Non- 91.8 BUN/Creatinine Ratio 13.5 (10-20) Calcium Level 8.9 mg/dl (8.5-10.1) Total Bilirubin 0.2 mg/dl (0.2-1) Direct Bilirubin < 0.1 mg/dl (0-0.2) Aspartate Amino Transf (AST/SGOT) 14 U/L (15-37) Alanine Aminotransferase (ALT/SGPT) 39 U/L (12-78) Alkaline Phosphatase 76 U/L (45-117) Total Creatine Kinase 206 U/L (39-308) Creatine Kinase MB 3.6 ng/ml (0.5-3.6) Creatine Kinase MB Ratio 1.7 (0-3.0) Troponin I < 0.015 ng/ml (0-0.045) Total Protein 7.5 gm/dl (6.4-8.2) Albumin 3.4 gm/dl (3.4-5.0) Lipase 339 U/L (73-393) Labs reviewed by ED physician. Medications Administered Medications (Trade) Dose Ordered Sig/Mario Alberto Route Start Time Stop Time Status Last Admin Dose Admin Acetaminophen (Tylenol Tab) 1,000 mg NOW STAT PO 05/03/17 21:17 05/03/17 21:18 DC 05/03/17 21:27 1,000 MG Sodium Chloride 1,000 ml @ 999 mls/hr Q1H1M STAT IV 05/03/17 21:57 05/03/17 22:57 DC 05/03/17 22:14 999 MLS/HR ECG Indication: chest pain Rate (beats per minute): 117 Rhythm: sinus tachycardia Findings: no acute ischemic change, no ectopy ED Course 2112: Past medical records reviewed. The patient was evaluated in room C8. A complete history and physical examination was performed. 2116: Ordered Tylenol Tab 1000 mg PO. 2156: Ordered Sodium Chloride 1000 ml @ 999 mls/hr IV. 2225: I reevaluated the patient and he is resting comfortably. I discussed all the exam findings with him and I discussed the treatment plan. He verbalized complete understanding and agreement. He is ready to go home. Medical Decision Differential diagnosis: Etiologies such as cardiac ischemia, aortic dissection, pulmonary embolism, pneumonia, pneumothorax, musculoskeletal, infections, pericarditis, myocarditis , esophageal rupture, gastrointestinal, as well as others were entertained. Medication Reconciliation: I attest that I have personally reviewed the patient' s current medication list Blood Pressure Screening: Patient was found to have normal blood pressure on screening and does not require follow up. This is a 41-year-old male who presents emergency department complaining of left -sided chest wall pain. I will note that the patient is tender on palpation to his left chest wall. In addition with movement of his arms this reproduces the chest pain. I will also note that the patient has had recent evaluations by cardiology. Based on these findings my suspicion for cardiac ischemia is low. In addition the patient has a normal EKG as well as normal cardiac enzymes. The patient was given Tylenol as well as fluid in the emergency department. Repeat examination revealed improvement the patient's symptoms. I do believe that the patient is well enough to be discharged home for follow-up with the primary care physician. Patient was in agreement with the treatment plan. Impression Primary Impression: Chest wall pain Scribe Attestation The scribe's documentation has been prepared under my direction and personally reviewed by me in its entirety. I confirm that the note above accurately reflects all work, treatment, procedures, and medical decision making performed by me. Departure Information Dispostion Home / Self-Care Referrals Velasquez Valencia M.D. (PCP) [place], DO Forms HOME CARE DOCUMENTATION FORM, IMPORTANT VISIT INFORMATION, School Instructions, Work Instructions Patient Instructions Chest Pain - [facility], Hypertension Dc, My [facility] Additional Instructions Follow up with Dr Cloud's office You have been examined and treated today on an emergency basis only. This is not a substitute for, or an effort to provide, complete comprehensive medical care. It is impossible to recognize and treat all injuries or illnesses in a single emergency department visit. It is therefore important that you follow up closely with Dr Valencia. Call as soon as possible for an appointment. Thank you for your time and consideration. I look forward to speaking with you again soon. Please don't hesitate to call us if you have any questions.
[2017-05-03 21:29] VITALS: O2SAT 97
[2017-05-03 21:44] LABS: BASO % 0.6 %; BASO ABS # 0.04 K/uL (0-0.2); COMPLETE YES; EOS % 4.1 %; HEMATOCRIT 44.5 % (42-52); LYMPH % 31.8 %; LYMPH ABS # 2.15 K/uL (1.2-3.4); MEAN CELL VOLUME 86.6 fL (80-100); MEAN CORPUSCULAR HEMOGLOBIN 28.8 pg (25-34); MEAN CORPUSCULAR HGB CONC 33.3 g/dl (32-36); MEAN PLATELET VOLUME 9.5 fL (7.4-10.4); MONO % 9.2 %; NEUT % 53.3 %; PLATELET COUNT 208 K/uL (130-400); RED BLOOD COUNT 5.14 M/uL (4.7-6.1); WHITE BLOOD COUNT 6.77 K/uL (4.8-10.8)
--- NOTE | 2017-05-03 21:46 | DIAGNOSTIC IMAGING REPORT ---
CHEST ONE VIEW PORTABLE CLINICAL HISTORY: Chest pain. COMPARISON STUDY: Chest CT March 30, 2017. FINDINGS: Lung volumes are at the lower limits of normal. This is unchanged. No pneumothorax or pleural effusion is present. There is no consolidation. Cardiomediastinal silhouette remains normal. The appearance of the chest is unchanged. IMPRESSION: No acute cardiopulmonary findings. Electronically signed by: Serge Ghotra M.D. 05/03/2017 9:45 PM Dictated Date/Time: 05/03/2017 9:44 PM
[2017-05-03] MEDS ORDERED: SODIUM CHLORIDE 0.9% 1000ML 1,000 ML IV STA (21:57)
[2017-05-03 22:03] LABS: ALT/SGPT 39 U/L (12-78); BLOOD UREA NITROGEN 14 mg/dl (7-18); BUN/CREATININE RATIO 13.5 (10-20); CALCIUM 8.9 mg/dl (8.5-10.1); CARBON DIOXIDE 26 mmol/L (21-32); CHLORIDE 104 mmol/L (98-107); GLUCOSE 276 mg/dl (70-99); POTASSIUM 3.9 mmol/L (3.5-5.1); SODIUM 137 mmol/L (136-145)
[2017-05-03 22:09] LABS: ALKALINE PHOSPHATASE 76 U/L (45-117); AST/SGOT 14 U/L (15-37); CKMB/CK RATIO 1.7 (0-3.0)
[2017-05-03] MEDS ORDERED: INSU3INJ3 SC (22:11)
[2017-05-03 23:02] VITALS: BP 121/52; PULSE 103; O2SAT 97
[2017-05-03] MEDS ORDERED: ASPI-435 PO (23:56)
[2017-05-17] MEDS ORDERED: NRN100 PO (10:30)
[2017-05-17] MEDS ORDERED: EFFSR375 PO (10:30)
[2017-05-17] MEDS ORDERED: NICO21DI4 EXT (10:31)
[2017-05-17] MEDS ORDERED: NCR2 MT (10:31)
[2017-07-29] MEDS ORDERED: LPT40 PO (09:14)
[2017-07-29] MEDS ORDERED: ASPEC81 PO (09:14)
== END 2017-05-03 23:03 | disposition home or self-care (01) ==
LOC: C.EDB 21:01 → C.EDC 23:03
DX: R07.89 Other chest pain (principal); F32.9 Major depressive disorder, single episode, unspecified; E11.9 Type 2 diabetes mellitus without complications; K31.84 Gastroparesis; I10 Essential (primary) hypertension; K58.9 Irritable bowel syndrome, unspecified; Z80.9 Family history of malignant neoplasm, unspecified; Z83.3 Family history of diabetes mellitus; Z83.79 Family history of other diseases of the digestive system; Z82.49 Family history of ischemic heart disease and other diseases of the circulatory system; Z83.6 Family history of other diseases of the respiratory system; F17.210 Nicotine dependence, cigarettes, uncomplicated; Z79.4 Long term (current) use of insulin; Z79.899 Other long term (current) drug therapy

== ENCOUNTER 2017-05-09 16:07 | Emergency (ER) | payer OTHER ==
[~2017-05-09] VITALS: Ht 190.5 cm; Wt 131.6 kg
[~2017-05-09 16:07] MED LIST changes: +ASPI-435 PO; -DXY100 PO; +INSU3INJ3 SC; -QUET1TAB34 PO
[2017-05-09 16:10] VITALS: TEMP 36.5; Ht 190.5 cm; Wt 131.6 kg
[2017-05-09] MEDS ORDERED: MoRPHine SULFATE 10 MG/ML CARP/VIAL IV STA (16:20)
[2017-05-09] MEDS ORDERED: SODIUM CHLORIDE 0.9% 1000ML 1,000 ML IV STA (16:20)
[2017-05-09] MEDS ORDERED: KETOROLAC TROMETHAMINE 30 MG/ML VIAL IV STA (16:20)
[2017-05-09] MEDS ORDERED: PROMETHAZINE HCL INJ 12.5 MG in SODIUM CHLORIDE 0.9% 50ML 50 ML IV STA (16:20)
--- NOTE | 2017-05-09 16:26 | EMERGENCY ROOM VISIT NOTE ---
History Report prepared by Marianela: Kannan Dunn Under the Supervision of: Dr. Jaydon Brewer M.D. First contact with patient: 16:11 Chief Complaint: BACK PAIN Stated Complaint: BACK PAIN History of Present Illness The patient is a 41 year old male who presents to the Emergency Room with complaints of ongoing back pain that the patient states began to worsen this morning, several hours prior to arrival. The patient has chronic back pain and has been diagnosed with a bulging disk at L4 and another somewhere in his upper spine. He notes that he was making his way to his living area this morning and he felt like he could no longer hold his weight up. He needed to lower himself to the ground, but he did not fall. He then phoned for EMS, because he could not stand back up. The patient is also complaining of pain shooting down both of his legs bilaterally. The pain shoots to just below the knees. He had a normal bowel movement yesterday, and has not experienced any urinary irregularities today. He does have a Tramadol prescription for his back pain, but was not able to take a dose today before calling 911. This is the patient's third visit to the Emergency Department this month. He was here from the - for cellulitis, as well as the for chest wall pain. 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 A total of 10 systems reviewed and were otherwise negative. Past Medical & Surgical Medical Problems: (1) Depression (2) DM type 2 (diabetes mellitus, type 2) (3) Gastroparesis (4) HTN (hypertension) (5) IBS (irritable bowel syndrome) (6) NSVT (nonsustained ventricular tachycardia) (7) Sepsis Surgical Problems: (1) S/P left knee arthroscopy (2) S/P tonsillectomy Family History Cancer Diabetes mellitus MOTHER GRANDMOTHER UNCLE AUNT Gallbladder disease Heart disease Hypertension MOTHER FATHER Lung disease Social History Smoking Status: Current Every Day Smoker Alcohol Use: heavy Drug Use: none Marital Status: Housing Status: lives with family Occupation Status: employed, other Current/Historical Medications Scheduled Aripiprazole (Aripiprazole), 15 MG PO DAILY Gabapentin (Gabapentin), 800 MG PO TID Insulin Aspart (Novolog Flexpen), 1 DOSE SC PC Insulin Detemir (Levemir Flextouch), 30 UNITS SC BID Venlafaxine Hcl (Effexor Extended Rel), 150 MG PO DAILY Scheduled PRN Tramadol HCl (Tramadol HCl), 25 MG PO Q8H PRN for Pain Allergies Coded Allergies: Cephalosporins (Verified Allergy, Unknown, AR, 05/09/17) Physical Exam Vital Signs Date Time Temp Pulse Resp B/P (MAP) Pulse Ox O2 Delivery O2 Flow Rate FiO2 05/09/17 18:19 92 18 148/80 92 Room Air 05/09/17 16:10 36.5 109 20 150/82 93 Room Air Physical Exam GENERAL: Patient is in no acute distress. HEENT: No acute trauma, normocephalic atraumatic, mucous membranes moist, no nasal congestion, no scleral icterus. NECK: No stridor, no adenopathy, no meningismus, trachea is midline. LUNGS: Clear to auscultation bilaterally, no wheeze, no rhonchi, breath sounds equal. HEART: Mildly tachycardic, without any murmurs, rubs, or gallops. ABDOMEN: Soft, nontender, bowel sounds positive, no hernias, no peritonitis. EXTREMITIES: No cyanosis or edema, full range of motion of all the joints without pain or difficulty, no signs for acute trauma. BACK: Back exam deferred as the patient was in too much pain to roll. NEUROLOGIC: Oriented x 3, no acute motor or sensory deficits, no focal weakness. Cannot illicit reflexes in the lower extremities as the patient is too tense and cannot relax. SKIN: No rash, no jaundice, no diaphoresis. Back exam: Performed after he was medicated, there are no focal areas of bony discomfort, no step-offs, no rash. Medical Decision & Procedures ER Provider Diagnostic Interpretation: Radiology results as stated below per my review and radiologist interpretation: L-SPINE MIN 4 VIEWS ROUTINE CLINICAL HISTORY: low back pain COMPARISON STUDY: 08/06/2016 FINDINGS: There are mild multilevel degenerative changes. No acute fractures or subluxations are visualized. No destructive lesions are evident. IMPRESSION: Mild degenerative change. No fractures are visualized. Electronically signed by: Ortiz Driscoll M.D. 05/09/2017 5:04 PM Dictated Date/Time: 05/09/2017 5:03 PM Laboratory Results 05/09/17 16:34 Red Blood Count 5.08, Mean Corpuscular Volume 85.6, Mean Corpuscular Hemoglobin 29.1, Mean Corpuscular Hemoglobin Concent 34.0, Mean Platelet Volume 8.9, Neutrophils (%) (Auto) 58.0, Lymphocytes (%) (Auto) 27.2, Monocytes (%) (Auto) 8.7, Eosinophils (%) (Auto) 4.6, Basophils (%) (Auto) 0.6, Neutrophils # (Auto) 4.06, Lymphocytes # (Auto) 1.90, Monocytes # (Auto) 0.61, Eosinophils # (Auto) 0.32, Basophils # (Auto) 0.04 05/09/17 16:34 Test 05/09/17 16:34 05/09/17 17:50 White Blood Count 6.99 K/uL (4.8-10.8) Red Blood Count 5.08 M/uL (4.7-6.1) Hemoglobin 14.8 g/dL (14.0-18.0) Hematocrit 43.5 % (42-52) Mean Corpuscular Volume 85.6 fL (80-100) Mean Corpuscular Hemoglobin 29.1 pg (25-34) Mean Corpuscular Hemoglobin Concent 34.0 g/dl (32-36) Platelet Count 238 K/uL (130-400) Mean Platelet Volume 8.9 fL (7.4-10.4) Neutrophils (%) (Auto) 58.0 % Lymphocytes (%) (Auto) 27.2 % Monocytes (%) (Auto) 8.7 % Eosinophils (%) (Auto) 4.6 % Basophils (%) (Auto) 0.6 % Neutrophils # (Auto) 4.06 K/uL (1.4-6.5) Lymphocytes # (Auto) 1.90 K/uL (1.2-3.4) Monocytes # (Auto) 0.61 K/uL (0.11-0.59) Eosinophils # (Auto) 0.32 K/uL (0-0.5) Basophils # (Auto) 0.04 K/uL (0-0.2) RDW Standard Deviation 42.2 fL (36.4-46.3) RDW Coefficient of Variation 13.4 % (11.5-14.5) Immature Granulocyte % (Auto) 0.9 % Immature Granulocyte # (Auto) 0.06 K/uL (0.00-0.02) Anion Gap 8.0 mmol/L (3-11) Est Creatinine Clear Calc Drug Dose 180.8 ml/min Estimated GFR () 128.8 Estimated GFR (Non- 111.1 BUN/Creatinine Ratio 17.1 (10-20) Calcium Level 8.8 mg/dl (8.5-10.1) Urine Color YELLOW Urine Appearance CLEAR (CLEAR) Urine pH 6.0 (4.5-7.5) Urine Specific [place] 1.010 (1.000-1.030) Urine Protein NEG (NEG) Urine Glucose (UA) NEG (NEG) Urine Ketones NEG (NEG) Urine Occult Blood NEG (NEG) Urine Nitrite NEG (NEG) Urine Bilirubin NEG (NEG) Urine Urobilinogen NEG (NEG) Urine Leukocyte Esterase NEG (NEG) Laboratory results reviewed by me. Medications Administered Medications (Trade) Dose Ordered Sig/Mario Alberto Route Start Time Stop Time Status Last Admin Dose Admin Sodium Chloride 1,000 ml @ 999 mls/hr Q1H1M STAT IV 05/09/17 16:20 05/09/17 17:20 DC 05/09/17 16:33 999 MLS/HR Ketorolac Tromethamine (Toradol Inj) 30 mg NOW STAT IV 05/09/17 16:20 05/09/17 16:22 DC 05/09/17 16:34 30 MG Promethazine HCl 12.5 mg/Sodium Chloride 50.5 ml @ 204 mls/hr NOW STAT IV 05/09/17 16:20 05/09/17 16:34 DC 05/09/17 16:33 204 MLS/HR Morphine Sulfate (MoRPHine SULFATE INJ) 6 mg NOW STAT IV 05/09/17 16:20 05/09/17 16:23 DC 05/09/17 16:34 6 MG Morphine Sulfate (MoRPHine SULFATE INJ) 4 mg NOW STAT IV 05/09/17 17:13 05/09/17 17:16 DC 05/09/17 17:26 4 MG Tramadol HCl (Ultram Tab) 100 mg NOW STAT PO 05/09/17 17:13 05/09/17 17:16 DC 05/09/17 17:25 100 MG ED Course 1615: The patient was evaluated in room A10. A complete history and physical exam was performed. 1620: Ordered Morphine Sulfate 6 mg IV, Promethazine HCl 50.5 mL @ 204 mL/hr IV , Toradol 30 mg IV, Sodium Chloride 1000 mL @ 999 mL/hr IV. 1713: Ordered Tramadol 100 mg PO, Morphine Sulfate 4 mg IV. 1818: I checked on the patient at this time. He was sleeping in bed. 182: Reevaluated the patient. Discussed results and discharge instructions: He verbalized understanding and agreement. The patient is ready for discharge. He will call his sister for a ride home, as he cannot drive himself. Medical Decision Differential Diagnosis includes; lumbar spasm, lumbar strain, herniated disc disease, sciatica, nerve impingement, infection, UTI There is no leukocytosis or concerning anemia. No significant electrolyte abnormality or kidney failure. Lumbar spine series shows some mild degenerative disease, no fractures. There was no significant disc space narrowing. On exam, the patient was not febrile or toxic, there were no focal neurologic deficits. Urinalysis does not show evidence for infection. The patient was given IV morphine, IV Toradol, IV saline and IV Phenergan. He was given oral tramadol. The patient's pain is very likely musculoskeletal. I do think he can be discharged to continue his tramadol as before. Heat to the back may help. No heavy lifting. He can follow-up with his family doctor's office as an outpatient later this week. Of note, I could not elicit any reflexes, the patient states this has been the case for some time, he states doctors can never find any reflexes on him. Impression Primary Impression: Lower back pain Scribe Attestation The scribe's documentation has been prepared under my direction and personally reviewed by me in its entirety. I confirm that the note above accurately reflects all work, treatment, procedures, and medical decision making performed by me. Departure Information Dispostion Home / Self-Care Referrals Velasquez Valencia M.D. (PCP) Forms HOME CARE DOCUMENTATION FORM, IMPORTANT VISIT INFORMATION Patient Instructions My [facility] Additional Instructions tramadol 1-2 tab as before for low back pain massage to the muscles may help heat to the back should help follow with [facility] this week return if worsening as we discussed work up today was ok as we discussed
[2017-05-09 16:47] LABS: BASO % 0.6 %; BASO ABS # 0.04 K/uL (0-0.2); COMPLETE YES; EOS % 4.6 %; HEMATOCRIT 43.5 % (42-52); IG% 0.9 %; LYMPH % 27.2 %; MEAN CELL VOLUME 85.6 fL (80-100); MEAN CORPUSCULAR HEMOGLOBIN 29.1 pg (25-34); MEAN PLATELET VOLUME 8.9 fL (7.4-10.4); MONO % 8.7 %; PLATELET COUNT 238 K/uL (130-400); RED BLOOD COUNT 5.08 M/uL (4.7-6.1); WHITE BLOOD COUNT 6.99 K/uL (4.8-10.8)
[2017-05-09 17:03] LABS: BUN/CREATININE RATIO 17.1 (10-20); CALCIUM 8.8 mg/dl (8.5-10.1); CREATININE 0.77 mg/dl (0.60-1.40); POTASSIUM 3.7 mmol/L (3.5-5.1)
--- NOTE | 2017-05-09 17:06 | DIAGNOSTIC IMAGING REPORT ---
L-SPINE MIN 4 VIEWS ROUTINE CLINICAL HISTORY: low back pain COMPARISON STUDY: 08/06/2016 FINDINGS: There are mild multilevel degenerative changes. No acute fractures or subluxations are visualized. No destructive lesions are evident. IMPRESSION: Mild degenerative change. No fractures are visualized. Electronically signed by: Ortiz Driscoll M.D. 05/09/2017 5:04 PM Dictated Date/Time: 05/09/2017 5:03 PM
[2017-05-09] MEDS ORDERED: TRAMADOL HCL 50 MG TAB PO STA (17:13)
[2017-05-09] MEDS ORDERED: MoRPHine SULFATE 4 MG/ML 1 ML CARP\\VIAL IV STA (17:13)
[2017-05-09 17:59] LABS: URINE APPEARANCE CLEAR (CLEAR); URINE BILIRUBIN NEG (NEG); URINE COLOR YELLOW; URINE NITRITE NEG (NEG); UROBILINOGEN NEG (NEG)
[2017-05-09 18:12] LABS: MANUAL MICROSCOPIC REQUIRED? NO; REVIEW REQ? NO
[2017-05-09 19:04] VITALS: BP 130/63; PULSE 95; O2SAT 96
[2017-05-17] MEDS ORDERED: EFFSR375 PO (10:30)
[2017-05-17] MEDS ORDERED: NRN100 PO (10:30)
[2017-05-17] MEDS ORDERED: NICO21DI4 EXT (10:31)
[2017-05-17] MEDS ORDERED: NCR2 MT (10:31)
[2017-07-29] MEDS ORDERED: LPT40 PO (09:14)
[2017-07-29] MEDS ORDERED: ASPEC81 PO (09:14)
== END 2017-05-09 19:05 | disposition home or self-care (01) ==
LOC: EDBD 16:07 → C.EDA 16:08
DX: M54.5 Low back pain (principal); I10 Essential (primary) hypertension; E11.43 Type 2 diabetes mellitus with diabetic autonomic (poly)neuropathy; F32.9 Major depressive disorder, single episode, unspecified; F17.200 Nicotine dependence, unspecified, uncomplicated; Z90.89 Acquired absence of other organs; Z98.890 Other specified postprocedural states; Z83.3 Family history of diabetes mellitus; Z82.49 Family history of ischemic heart disease and other diseases of the circulatory system; Z79.4 Long term (current) use of insulin; Z79.899 Other long term (current) drug therapy

== ENCOUNTER 2017-05-12 20:32 | Inpatient (IN) | payer OTHER ==
[~2017-05-12] VITALS: Ht 188 cm; Wt 128.0 kg
[~2017-05-12 20:32] MED LIST changes: -ASPI-435 PO
[2017-05-12] MEDS ORDERED: KETOROLAC TROMETHAMINE 30 MG/ML VIAL IV STA (21:27)
[2017-05-12] MEDS ORDERED: SODIUM CHLORIDE 0.9% 1000ML 1,000 ML IV STA (21:27)
[2017-05-12] MEDS ORDERED: ONDANSETRON INJ 2 MG/ML 2 ML VIAL IV STA (21:27)
--- NOTE | 2017-05-12 21:35 | EMERGENCY ROOM VISIT NOTE ---
History Report prepared by Marianela: Gaurang Geiger Under the Supervision of: Dr. George Enriquez D.O. First contact with patient: 21:04 Chief Complaint: BACK PAIN Stated Complaint: STATED HE WAS GOING TO TAKE A WHOLE BOTTLE PILL History of Present Illness The patient is a 41 year old male who presents to the Emergency Room with complaints of constant worsening severe back pain for the past four days. He states that the pain is in his lower back, and it is going down his leg. The patient states that he was here in the ED four days ago, and they could not find anything. The patient states that he has not had an MRI recently. The patient states that he has a possible bulged disc in his L4 vertebrae. He states that he is taking tramadol as needed for the pain. The patient denies any recent falls, and he denies any abdominal pain. Source of History: patient Onset: four days ago Position: back (lower) Symptom Intensity: severe Timing: worsening Associated Symptoms: No abdominal pain Review of Systems See HPI for pertinent positives & negatives. A total of 10 systems reviewed and were otherwise negative. Past Medical & Surgical Medical Problems: (1) Depression (2) DM type 2 (diabetes mellitus, type 2) (3) Gastroparesis (4) HTN (hypertension) (5) IBS (irritable bowel syndrome) (6) Nicotine dependence (7) NSVT (nonsustained ventricular tachycardia) (8) Obesity (9) Sepsis Surgical Problems: (1) S/P left knee arthroscopy (2) S/P tonsillectomy Social History Problems: (1) Alcohol abuse Family History Cancer Diabetes mellitus MOTHER GRANDMOTHER UNCLE AUNT Gallbladder disease Heart disease Hypertension MOTHER FATHER Lung disease Social History Smoking Status: Current Every Day Smoker Alcohol Use: heavy Drug Use: none Marital Status: Housing Status: lives with family Occupation Status: employed, other Current/Historical Medications Scheduled Aripiprazole (Aripiprazole), 15 MG PO DAILY Gabapentin (Gabapentin), 800 MG PO TID Insulin Aspart (Novolog Flexpen), 1 DOSE SC PC Insulin Detemir (Levemir Flextouch), 30 UNITS SC BID Venlafaxine Hcl (Effexor Extended Rel), 150 MG PO DAILY Scheduled PRN Tramadol HCl (Tramadol HCl), 25 MG PO Q8H PRN for Pain Allergies Coded Allergies: Cephalosporins (Verified Allergy, Unknown, AR, 05/12/17) Physical Exam Vital Signs Date Time Temp Pulse Resp B/P (MAP) Pulse Ox O2 Delivery O2 Flow Rate FiO2 05/12/17 23:22 100 18 105/54 95 Room Air 05/12/17 20:40 37.5 124 16 139/87 97 Room Air Physical Exam GENERAL: Patient is awake, alert, and in no acute distress. Patient is resting comfortably and showing no signs of anxiety EYES: The conjunctivae are clear. The pupils are round and reactive. EARS, NOSE, MOUTH AND THROAT: The nose is without any evidence of any deformity. Mucous membranes are moist tongue is midline NECK: The neck is nontender and supple. RESPIRATORY: Normal respiratory effort is noted there is no evidence of wheezing rhonchi or rales CARDIOVASCULAR: Tachycardic rate but regular rhythm. No definite murmur noted on auscultation. GASTROINTESTINAL: The abdomen is soft. Bowel sounds are present in all quadrants. Abdomen is nontender BACK: Range of motion appears to be intact. There was lumbar tenderness to palpation. No step off or swelling. MUSCULOSKELETAL/EXTREMITIES: There is no evidence of gross deformity full range of motion is noted in the hips and shoulders SKIN: There is no obvious evidence of any rash. There are no petechiae, pallor or cyanosis noted. NEUROLOGIC: Patient is awake alert and oriented x3 strength is symmetric patellar reflexes are 1+ bilaterally, and Achilles tendon reflexes are 1+ bilaterally Medical Decision & Procedures ER Provider Diagnostic Interpretation: Radiology results as stated below per my review and radiologist interpretation: MRI OF THE LUMBAR SPINE WITHOUT CONTRAST CLINICAL HISTORY: Low back pain. Weakness. COMPARISON STUDY: MRI of the lumbar spine August 06, 2016 and lumbar spine radiographs May 09, 2017. TECHNIQUE: Utilizing a 1.5 Michelle magnet and dedicated coil, multiplanar, multiecho imaging of the lumbar spine was performed without IV contrast. FINDINGS: For purposes of numbering on this exam, the L5-S1 disc space is assigned to axial image 20 of 30. There is a transitional vertebra at the lumbosacral junction which is designated as S1 one on this exam. No intracanalicular mass or fluid collection is present. Conus terminates at the L1-L2 level. Paravertebral soft tissues are unremarkable. L1-2: There is a small central disc protrusion. The central canal and neural foramen are patent. L2-3: The central canal and neural foramen are patent. L3-4: The central canal and neural foramina patent. L4-5: There is minimal disc space narrowing. There is a tiny central/left paracentral disc protrusion. There is mild narrowing of the left lateral recess. The neural foramen are patent. L5-S1: There is a tiny central disc protrusion. The central canal and neural foramen are patent. IMPRESSION: 1. No acute abnormality within the lumbar spine by MRI. No change since exam of August 06, 2016. 2. Small disc protrusions at L1-L2, L4-L5 and L5-S1. Mild narrowing of the left lateral recess at L4-L5. 3. Transitional vertebra at the lumbosacral junction which is designated as S1 on this exam, as described above. Electronically signed by: Serge Ghotra M.D. 05/12/2017 10:44 PM Dictated Date/Time: 05/12/2017 10:38 PM Laboratory Results 05/12/17 21:52 Red Blood Count 5.62, Mean Corpuscular Volume 85.9, Mean Corpuscular Hemoglobin 28.8, Mean Corpuscular Hemoglobin Concent 33.5, Mean Platelet Volume 8.9, Neutrophils (%) (Auto) 55.3, Lymphocytes (%) (Auto) 31.2, Monocytes (%) (Auto) 7.5, Eosinophils (%) (Auto) 4.5, Basophils (%) (Auto) 0.5, Neutrophils # (Auto) 4.42, Lymphocytes # (Auto) 2.49, Monocytes # (Auto) 0.60, Eosinophils # (Auto) 0.36, Basophils # (Auto) 0.04 05/12/17 21:52 Test 05/12/17 21:52 05/13/17 00:30 White Blood Count 7.99 K/uL (4.8-10.8) Red Blood Count 5.62 M/uL (4.7-6.1) Hemoglobin 16.2 g/dL (14.0-18.0) Hematocrit 48.3 % (42-52) Mean Corpuscular Volume 85.9 fL (80-100) Mean Corpuscular Hemoglobin 28.8 pg (25-34) Mean Corpuscular Hemoglobin Concent 33.5 g/dl (32-36) Platelet Count 258 K/uL (130-400) Mean Platelet Volume 8.9 fL (7.4-10.4) Neutrophils (%) (Auto) 55.3 % Lymphocytes (%) (Auto) 31.2 % Monocytes (%) (Auto) 7.5 % Eosinophils (%) (Auto) 4.5 % Basophils (%) (Auto) 0.5 % Neutrophils # (Auto) 4.42 K/uL (1.4-6.5) Lymphocytes # (Auto) 2.49 K/uL (1.2-3.4) Monocytes # (Auto) 0.60 K/uL (0.11-0.59) Eosinophils # (Auto) 0.36 K/uL (0-0.5) Basophils # (Auto) 0.04 K/uL (0-0.2) RDW Standard Deviation 42.2 fL (36.4-46.3) RDW Coefficient of Variation 13.3 % (11.5-14.5) Immature Granulocyte % (Auto) 1.0 % Immature Granulocyte # (Auto) 0.08 K/uL (0.00-0.02) Anion Gap 6.0 mmol/L (3-11) Est Creatinine Clear Calc Drug Dose 141.5 ml/min Estimated GFR () 110.4 Estimated GFR (Non- 95.2 BUN/Creatinine Ratio 13.2 (10-20) Calcium Level 9.4 mg/dl (8.5-10.1) Total Bilirubin 0.3 mg/dl (0.2-1) Direct Bilirubin < 0.1 mg/dl (0-0.2) Aspartate Amino Transf (AST/SGOT) 20 U/L (15-37) Alanine Aminotransferase (ALT/SGPT) 46 U/L (12-78) Alkaline Phosphatase 83 U/L (45-117) Total Protein 8.1 gm/dl (6.4-8.2) Albumin 3.8 gm/dl (3.4-5.0) Lipase 147 U/L (73-393) Thyroid Stimulating Hormone (TSH) 1.060 uIu/ml (0.300-4.500) Urine Color DK YELLOW Urine Appearance CLEAR (CLEAR) Urine pH 5.5 (4.5-7.5) Urine Specific [place] 1.039 (1.000-1.030) Urine Protein TRACE (NEG) Urine Glucose (UA) 3+ (NEG) Urine Ketones TRACE (NEG) Urine Occult Blood NEG (NEG) Urine Nitrite NEG (NEG) Urine Bilirubin NEG (NEG) Urine Urobilinogen POS (NEG) Urine Leukocyte Esterase NEG (NEG) Urine WBC (Auto) 1-5 /hpf (0-5) Urine RBC (Auto) 0-4 /hpf (0-4) Urine Hyaline Casts (Auto) 5-10 /lpf (0-5) Urine Epithelial Cells (Auto) >30 /lpf (0-5) Urine Bacteria (Auto) NEG (NEG) Urine Renal Epithelial Cells /lpf (0-5) Urine Crystals CALCIUM OXALATE (NONE Urine Pathogenic Casts /lpf (0) Urine Mucus PRESENT (NONE PRSENT) Urine Opiates Screen NEG (NEG) Urine Methadone, Qualitative NEG (NEG) Urine Barbiturates NEG (NEG) Urine Phencyclidine (PCP) Level NEG (NEG) Ur Amphetamine/Methamphetamine NEG (NEG) MDMA (Ecstasy) Screen NEG (NEG) Urine Benzodiazepines Screen NEG (NEG) Urine Cocaine Metabolite NEG (NEG) Urine Marijuana (THC) NEG (NEG) Laboratory results per my review. Medications Administered Medications (Trade) Dose Ordered Sig/Mario Alberto Route Start Time Stop Time Status Last Admin Dose Admin Ketorolac Tromethamine (Toradol Inj) 30 mg NOW STAT IV 05/12/17 21:27 05/12/17 21:29 DC 05/12/17 22:03 30 MG Sodium Chloride 1,000 ml @ 999 mls/hr Q1H1M STAT IV 05/12/17 21:27 05/12/17 22:27 DC 05/12/17 22:02 999 MLS/HR Ondansetron HCl (Zofran Inj) 4 mg NOW STAT IV 05/12/17 21:27 05/12/17 21:29 DC 05/12/17 22:02 4 MG ED Course 2117: The patient was evaluated in room B10. A complete history and physical examination were performed. 2126: Zofran Inj 4mg IV, NSS 1,000 ml @ 999 mls/hr IV, Toradol Inj 30mg IV 5: I reevaluated the patient, and he states that he is going to kill himself due to his back pain. Medical Decision Differential diagnosis: Etiologies such as musculoskeletal, disc herniation, fracture, aortic disease, metastatic disease, cord compression, discitis, infection, renal colic, gastrointestinal, acute exacerbation of chronic back pain, sciatica, cauda equina, as well as others were entertained. Nursing notes reviewed. The patient is a 41-year-old male who presented to the emergency department for an evaluation of low back pain. The patient was seen in our facility recently for similar complaints. The patient did not have any focal neurologic deficits. He was able to ambulate without difficulty. Because the patient was seen here recently an MRI was obtained. There is no significant change from his previous MRI 1 year ago. I discussed patient's laboratory and radiographic studies with him. Upon learning that there is no definite cause for his low back pain he started to voice suicidal ideation because of the amount of pain he was in. This reason I discussed his case with the emergency department protective services case worker. We will have mental health evaluation for this patient to assess his risk for suicidal ideation at this time. He was treated with IV fluids IV pain medicine and IV antiemetics. Medication Reconcilliation Current Medication List: was personally reviewed by me Blood Pressure Screening Patient's blood pressure: Normal blood pressure Impression Primary Impression: Chronic low back pain Additional Impressions: Depression Suicidal ideation Scribe Attestation The scribe's documentation has been prepared under my direction and personally reviewed by me in its entirety. I confirm that the note above accurately reflects all work, treatment, procedures, and medical decision making performed by me. Departure Information Dispostion Home / Self-Care Referrals Velasquez Valencia M.D. (PCP) Forms HOME CARE DOCUMENTATION FORM, IMPORTANT VISIT INFORMATION, Work Instructions Patient Instructions Lumbar Pain Causes, My [facility] Additional Instructions Call your family in the morning to schedule a follow-up appointment. Rest and avoid any strenuous activity. Continue all medications as prescribed. Problem Qualifiers
[2017-05-12 22:04] LABS: BASO % 0.5 %; BASO ABS # 0.04 K/uL (0-0.2); COMPLETE YES; EOS % 4.5 %; HEMATOCRIT 48.3 % (42-52); LYMPH % 31.2 %; LYMPH ABS # 2.49 K/uL (1.2-3.4); MEAN CELL VOLUME 85.9 fL (80-100); MEAN CORPUSCULAR HEMOGLOBIN 28.8 pg (25-34); MEAN CORPUSCULAR HGB CONC 33.5 g/dl (32-36); MEAN PLATELET VOLUME 8.9 fL (7.4-10.4); MONO % 7.5 %; NEUT % 55.3 %; PLATELET COUNT 258 K/uL (130-400); RED BLOOD COUNT 5.62 M/uL (4.7-6.1); WHITE BLOOD COUNT 7.99 K/uL (4.8-10.8)
[2017-05-12 22:21] LABS: ALT/SGPT 46 U/L (12-78); BLOOD UREA NITROGEN 13 mg/dl (7-18); BUN/CREATININE RATIO 13.2 (10-20); CALCIUM 9.4 mg/dl (8.5-10.1); CARBON DIOXIDE 31 mmol/L (21-32); CHLORIDE 100 mmol/L (98-107); CREATININE 0.97 mg/dl (0.60-1.40); GLUCOSE 230 mg/dl (70-99); POTASSIUM 3.7 mmol/L (3.5-5.1); SODIUM 137 mmol/L (136-145)
[2017-05-12 22:24] LABS: ALKALINE PHOSPHATASE 83 U/L (45-117); AST/SGOT 20 U/L (15-37)
--- NOTE | 2017-05-12 22:45 | DIAGNOSTIC IMAGING REPORT ---
MRI OF THE LUMBAR SPINE WITHOUT CONTRAST CLINICAL HISTORY: Low back pain. Weakness. COMPARISON STUDY: MRI of the lumbar spine August 06, 2016 and lumbar spine radiographs May 09, 2017. TECHNIQUE: Utilizing a 1.5 Michelle magnet and dedicated coil, multiplanar, multiecho imaging of the lumbar spine was performed without IV contrast. FINDINGS: For purposes of numbering on this exam, the L5-S1 disc space is assigned to axial image 20 of 30. There is a transitional vertebra at the lumbosacral junction which is designated as S1 one on this exam. No intracanalicular mass or fluid collection is present. Conus terminates at the L1-L2 level. Paravertebral soft tissues are unremarkable. L1-2: There is a small central disc protrusion. The central canal and neural foramen are patent. L2-3: The central canal and neural foramen are patent. L3-4: The central canal and neural foramina patent. L4-5: There is minimal disc space narrowing. There is a tiny central/left paracentral disc protrusion. There is mild narrowing of the left lateral recess. The neural foramen are patent. L5-S1: There is a tiny central disc protrusion. The central canal and neural foramen are patent. IMPRESSION: 1. No acute abnormality within the lumbar spine by MRI. No change since exam of August 06, 2016. 2. Small disc protrusions at L1-L2, L4-L5 and L5-S1. Mild narrowing of the left lateral recess at L4-L5. 3. Transitional vertebra at the lumbosacral junction which is designated as S1 on this exam, as described above. Electronically signed by: Serge Ghotra M.D. 05/12/2017 10:44 PM Dictated Date/Time: 05/12/2017 10:38 PM
[2017-05-13 00:50] LABS: URINE APPEARANCE CLEAR (CLEAR); URINE COLOR DK YELLOW; URINE EPITHELIAL CELL AUTO >30 /lpf (0-5); URINE NITRITE NEG (NEG); URINE PH 5.5 (4.5-7.5); URINE SPECIFIC GRAVITY 1.039 (1.000-1.030); UROBILINOGEN POS (NEG)
[2017-05-13 00:59] LABS: MANUAL MICROSCOPIC REQUIRED? NO; REVIEW REQ? YES
[2017-05-13 01:01] LABS: URINE BILIRUBIN NEG (NEG)
[2017-05-13 01:09] LABS: BENZODIAZEPINE, URINE NEG (NEG); COCAINE,URINE NEG (NEG); PHENCYCLIDINE, URINE NEG (NEG)
[2017-05-13 01:21] LABS: URINE MUCUS PRESENT (NONE PRSENT)
[2017-05-13] MEDS ORDERED: NURSING VERBAL MED ORDER ONE (03:15)
[2017-05-13 03:48] VITALS: O2SAT 97
[2017-05-13] MEDS ORDERED: PHARMACY GLYCEMIC MGMT CONSULT PRN (03:49)
[2017-05-13] MEDS ORDERED: ALUMINUM/MAGNESIUM SUSP 30 ML UDC PO PRN (04:00)
[2017-05-13] MEDS ORDERED: ACETAMINOPHEN 325 MG TAB PO PRN (04:00)
[2017-05-13] MEDS ORDERED: SODIUM CHLORIDE 0.65% NA SOLN 45 ML (OCEAN) PRN (04:00)
[2017-05-13] MEDS ORDERED: BISMUTH SUBSALICYLATE PER ML OMNICELL CHARGE PO PRN (04:00)
[2017-05-13] MEDS ORDERED: MAGNESIUM HYDROXIDE SUSP 30 ML UDC PO PRN (04:00)
[2017-05-13] MEDS ORDERED: hydrOXYzine HCL 25 MG TAB PO PRN ×2 (04:00)
[2017-05-13 04:13] VITALS: BP 139/78; PULSE 82; TEMP 37.5; BMI 37.1
[2017-05-13] MEDS ORDERED: GLUCAGON FOR INJ 1 MG VIAL SQ PRN (05:45)
[2017-05-13] MEDS ORDERED: GLUCOSE 40% GEL 15 GM TUBE PO PRN (05:45)
[2017-05-13] MEDS ORDERED: GLUCOSE 10 TABS/TUBE PO PRN (05:45)
[2017-05-13] MEDS ORDERED: DEXTROSE 50% 50 ML SYR IV PRN (05:45)
[2017-05-13] MEDS: NICOTINE 21 MG/24 HR TDSY EXT SCH (08:27)
[2017-05-13] MEDS: ARIPIprazole TAB 15 MG TAB PO SCH (08:44)
[2017-05-13] MEDS: VENLAFAXINE HCL XR 75 MG CAPXR PO SCH (08:44)
[2017-05-13] MEDS ORDERED: INSULIN DETEMIR FLEXPEN/FLEX TOUCH 100 UNITS/ML 3ML SC SCH ×2 (09:00→22:00)
[2017-05-13] MEDS: INSULIN ASPART 100 UNITS/ML 3 ML PEN SC SCH ×4 (09:22→22:14)
[2017-05-13] MEDS ORDERED: GABAPENTIN 800 MG TAB PO ONE (10:06)
--- NOTE | 2017-05-13 10:22 | Pharmacy Progress Note ---
Glycemic Control Intl Consult Date of Service May 13, 2017. Scope Glycemic Pharmacist consulted by Dr Gloria on 05/13/17 for glycemic control and to write orders per [facility] inpatient glycemic control protocol Objective Weight (Kilograms): 128.000 Accuchecks BSG (last 24hrs): Test 05/12/17 21:52 05/13/17 07:37 Random Glucose 230 mg/dl (70-99) Bedside Glucose 189 mg/dl (70-99) Laboratory Data (last 24hrs) Test 05/12/17 21:52 Anion Gap 6.0 mmol/L BUN/Creatinine Ratio 13.2 Blood Urea Nitrogen 13 mg/dl Creatinine 0.97 mg/dl Potassium Level 3.7 mmol/L Sodium Level 137 mmol/L White Blood Count 7.99 K/uL Red Blood Count 5.62 M/uL Hemoglobin 16.2 g/dL Hematocrit 48.3 % Mean Corpuscular Volume 85.9 fL Mean Corpuscular Hemoglobin 28.8 pg Mean Corpuscular Hemoglobin Concent 33.5 g/dl Platelet Count 258 K/uL Mean Platelet Volume 8.9 fL Neutrophils (%) (Auto) 55.3 % Lymphocytes (%) (Auto) 31.2 % Monocytes (%) (Auto) 7.5 % Eosinophils (%) (Auto) 4.5 % Basophils (%) (Auto) 0.5 % Neutrophils # (Auto) 4.42 K/uL Lymphocytes # (Auto) 2.49 K/uL Monocytes # (Auto) 0.60 K/uL Eosinophils # (Auto) 0.36 K/uL Basophils # (Auto) 0.04 K/uL HbA1c 7.8% on 03/21/17 Recent Pertinent Medications Outpatient Anti-diabetic Regimen: * Levemir 30 units SQ BID * NovoLog with meals --> admits that he is not very compliant with this The patient is currently receiving: * Basal insulin: Levemir 30 units every 12 hours * Correctional Insulin: Novolog Correction per scale ACHS Goal Range: Low 110 mg/dL - High 140 mg/dL Correction Factor: 25 mg/dL/unit * Prandial insulin: Per carb ratio of 1 unit per 9 grams CHO consumed Assessment & Plan ASSESSMENT: * 41yo diabetic maintained on SQ basal bolus insulin regimen as an outpatient with adequate control per recent A1c of 7.8% on 03/21/17 * Pt admits that he is not very compliant with his NovoLog coverage. It is possible that his basal insulin (Levemir) dosing is covering some of his prandial needs as his A1c is near goal range. * Will continue outpatient basal insulin dosing but put a safety parameter to give a lower dose if BSGs trending downwards to help prevent hypoglycemia. * NovoLog parameters per estimated total daily of of 60 units. * ADA & AACE recommend a goal blood sugar range 140-180 mg/dl for the majority of critically ill & non-critically ill patients. However, more stringent targets may be selected in individual cases. Will utilize more stringent goal range of 110-140mg/dl for a well controlled diabetic at baseline. PLAN FOR INPATIENT GLYCEMIC CONTROL: * Basal insulin * Levemir SQ BID --> dosing based on BSG until true basal needs are determined * If BSG Below 140mg/dl --> 20 units * If BSG 140-180mg/dl --> 25 units * If BSG 181mg/dl or above --> 30 units * Bolus insulin * NovoLog per scale ACHS or Q6hrs while NPO * Goal Range: Low 110 mg/dL - High 140 mg/dL * Correction Factor: 25 mg/dL/unit * Nutritional / Prandial insulin per carb ratio of 1 unit per 9 grams CHO consumed * Please note that the plan above was derived based on current level of insulin resistance and hospital stress. These recommendations are appropriate for inpatient admission only. Plan of care upon discharge will need to be reassessed to avoid potential outpatient hypo/hyperglycemia. Thank you.
--- NOTE | 2017-05-13 10:27 | Psychiatric History & Physical ---
History Date of Service May 13, 2017. Identifying Data Bry Akhtar is a 41-year-old male who currently lives in [place] with family , has a history of recurrent depression and chronic pain who presented to the ER with pain and endorsed SI. He was admitted on a 201 voluntary commitment. Chief Complaint "This time it's mainly because of pain". History of Present Illness The patient was seen with Radha Chavis, MS3. He states he has been struggling with chronic back pain, and has been to the ER and his outpatient doctor and told "they can't find anything wrong... well if there's nothing wrong, it must all be in my head, because I'm in pain." He says he was in pain last night and told his nephew he might as well overdose on all his meds to end his life. He says he doesn't want to , but didn't know what else to do when he was in pain. He was seen in the ER 05/09 after he called 911 for back pain which caused him to have to sit down and he couldn't stand back up, and it was his third ER visit that month. He had an MRI of his L-spine which showed mild multilevel degenerative changes, no fracture of subluxation, and no lesions. He was diagnosed with musculoskeletal pain and instructed to continue oral Tramadol and follow up with his PCP that week. He has also been seen on our psychiatric consultation service for depression in the past. Reports low mood, chronic lack of energy and motivation, decreased appetite x months but no weight loss, but denies anhedonia, guilt, problems with concentration. Denies panic and FAYE symptoms other than episodic muscle tension which occurs when anxious, less than daily, last happened when he was at [employer]. He reports AVH in the past, saying he has heard voices calling his name , and this last occurred weeks to months ago when at [employer]. He has seen " a black blur" that appears to "fly by" at times in the past, remotely, cannot say when last happened. He denies eating disorder, zeb and OCD symptoms. He says he has been diagnosed with PTSD in the past, after his cousin was killed when the patient was 7 years old, he was crying, and his aunt told him not to cry as "it doesn't do any good." Denies current PTSD symptoms. He states his primary stressor is pain, but also in 06/2016 from leukemia, and he has financial strain, is unemployed, and is trying to get disability. His goals of treatment are "give me something to help with pain." He says the Tramadol "doesn't really help," but he has been taking 2 tabs daily since Wednesday, as he says "it helps a little bit." Past Psychiatric History Current OP Treatment: psychiatrist (Dr. Vargas at [facility]), therapist (Prasanth), disease case manager rn (Dave) Prior Psych Hospitalizations: [facility] [address], other Access to a Gun: No Suicide Attempts: No (But had a bottle of pills in his hand in March and was thinking of overdosing on them.) Past Medication Trials mirtazapine lithium - toxicity quetiapine others he cannot recall Additional Notes Diagnosed with recurrent depression Past Medical/Surgical History (1) NSVT (nonsustained ventricular tachycardia) (2) Chronic low back pain (3) HTN (hypertension) (4) DM type 2 (diabetes mellitus, type 2) (5) IBS (irritable bowel syndrome) Allergies Allergies: Coded Allergies: Cephalosporins (Verified Allergy, Unknown, AR, 05/12/17) Home Medications Scheduled Aripiprazole (Aripiprazole), 15 MG PO DAILY Gabapentin (Gabapentin), 800 MG PO TID Insulin Aspart (Novolog Flexpen), 1 DOSE SC PC Insulin Detemir (Levemir Flextouch), 30 UNITS SC BID Venlafaxine Hcl (Effexor Extended Rel), 150 MG PO DAILY Scheduled PRN Tramadol HCl (Tramadol HCl), 25 MG PO Q8H PRN for Pain Family History Cancer Diabetes mellitus MOTHER GRANDMOTHER UNCLE AUNT Gallbladder disease Heart disease Hypertension MOTHER FATHER Lung disease History of Suicide: No History of Substance Abuse: Yes (paternal uncle alcoholic) Psychiatric History: Yes (Brother has unclear "psych problems," and uncle "thinks he's a different person each week, he's in a state institution," nephew with ADHD "and his mom thinks he's bipolar.") Alcohol Use Alcohol Use In Past 12 Months: Yes (Told staff he drank a few beers a few times a week, but then said 6-12 beers 3 nights a week. Denies problems from alcohol, "it doesn't affect me one bit, I'm perfectly fine." CAGE negative.) AUDIT Total Score: 2 Smoking Use Smoking Status: Current Every Day Smoker 2 PPD Substance History Denies illicit drug use in years. Remote history of cannabis at age 25. Used PCP or marijuana at age 4 when older cousin gave it to him. Personal History Lives in: [facility] with multiple family members Childhood: 2 younger siblings Education: graduated from high school (has some credits from [employer]) Work History: Unemployed and applied for disability (appealing after 1 denial). 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 Last worked in 2015 and says he is on medical leave. Relationship History: ( in 06/2016) Children: none Spiritual Affiliation: "I believe in God and Danny" Legal History: none Psychological Trauma History: Significant Loss, Other (Denies abuse.) Review of Systems 10 systems reviewed, positive for back and knee pain, others negative except as stated above. Examination Physical Examination A physical exam was performed in the ER prior to admission to the unit by Dr. Enriquez. I accept that physical as correct/medical clearance for the inpatient physical exam. Vital Signs Vital Signs Past 12 Hours Date Time Temp Pulse Resp B/P (MAP) Pulse Ox O2 Delivery O2 Flow Rate FiO2 05/13/17 06:52 05/13/17 04:13 37.5 82 18 139/78 05/13/17 03:48 95 18 139/78 97 05/12/17 23:22 100 18 105/54 95 Room Air Laboratory Results Last 24 Hours Test 05/12/17 21:52 05/13/17 00:30 05/13/17 07:37 White Blood Count 7.99 K/uL Red Blood Count 5.62 M/uL Hemoglobin 16.2 g/dL Hematocrit 48.3 % Mean Corpuscular Volume 85.9 fL Mean Corpuscular Hemoglobin 28.8 pg Mean Corpuscular Hemoglobin Concent 33.5 g/dl Platelet Count 258 K/uL Mean Platelet Volume 8.9 fL Neutrophils (%) (Auto) 55.3 % Lymphocytes (%) (Auto) 31.2 % Monocytes (%) (Auto) 7.5 % Eosinophils (%) (Auto) 4.5 % Basophils (%) (Auto) 0.5 % Neutrophils # (Auto) 4.42 K/uL Lymphocytes # (Auto) 2.49 K/uL Monocytes # (Auto) 0.60 K/uL Eosinophils # (Auto) 0.36 K/uL Basophils # (Auto) 0.04 K/uL RDW Standard Deviation 42.2 fL RDW Coefficient of Variation 13.3 % Immature Granulocyte % (Auto) 1.0 % Immature Granulocyte # (Auto) 0.08 K/uL Sodium Level 137 mmol/L Potassium Level 3.7 mmol/L Chloride Level 100 mmol/L Carbon Dioxide Level 31 mmol/L Anion Gap 6.0 mmol/L Blood Urea Nitrogen 13 mg/dl Creatinine 0.97 mg/dl Est Creatinine Clear Calc Drug Dose 141.5 ml/min Estimated GFR () 110.4 Estimated GFR (Non- 95.2 BUN/Creatinine Ratio 13.2 Random Glucose 230 mg/dl Calcium Level 9.4 mg/dl Total Bilirubin 0.3 mg/dl Direct Bilirubin < 0.1 mg/dl Aspartate Amino Transf (AST/SGOT) 20 U/L Alanine Aminotransferase (ALT/SGPT) 46 U/L Alkaline Phosphatase 83 U/L Total Protein 8.1 gm/dl Albumin 3.8 gm/dl Lipase 147 U/L Thyroid Stimulating Hormone (TSH) 1.060 uIu/ml Urine Color DK YELLOW Urine Appearance CLEAR Urine pH 5.5 Urine Specific [place] 1.039 Urine Protein TRACE Urine Glucose (UA) 3+ Urine Ketones TRACE Urine Occult Blood NEG Urine Nitrite NEG Urine Bilirubin NEG Urine Urobilinogen POS Urine Leukocyte Esterase NEG Urine WBC (Auto) 1-5 /hpf Urine RBC (Auto) 0-4 /hpf Urine Hyaline Casts (Auto) 5-10 /lpf Urine Epithelial Cells (Auto) >30 /lpf Urine Bacteria (Auto) NEG Urine Renal Epithelial Cells /lpf Urine Crystals CALCIUM OXALATE Urine Pathogenic Casts /lpf Urine Mucus PRESENT Urine Opiates Screen NEG Urine Methadone, Qualitative NEG Urine Barbiturates NEG Urine Phencyclidine (PCP) Level NEG Ur Amphetamine/Methamphetamine NEG MDMA (Ecstasy) Screen NEG Urine Benzodiazepines Screen NEG Urine Cocaine Metabolite NEG Urine Marijuana (THC) NEG Bedside Glucose 189 mg/dl Mental Examination During interview pt is: alert and oriented, cooperative Appearance: appropriately dressed, disheveled, other (Obese, unkempt facial hair, seated in NAD, arms crossed over chest) Eye contact is: good Motor behavior is: steady gait & station, no abnormal motor movements Speech: loud Affect: mood congruent Mood is: other ("it's the pain") Thought process: goal directed, concrete Thought content: reality based without delusions Suicidal thought are: denied (but admits that he was suicidal last night, and was thinking of overdosing on his prescription medications) Homicidal thoughts are: denied Hallucinations: denies auditory, denies visual Cognition: attention grossly intact, language grossly intact, other (memory impaired for historical events) Intelligence estimated to be: average Insight: impaired Judgement: impaired Impression / Recommendations Impression 41-year-old white male with multiple medical problems including obesity , diabetes, hyperlipidemia, and chronic pain as well as recurrent depression and alcohol and nicotine abuse who presents with suicidality in the context of chronic pain and multiple psychosocial stressors. He has limited understanding of chronic pain and his substance abuse, wanting a medication to take away all pain, and lacks insight into the risks of continuing to drink and smoke excessively. His only goal of admission is to get pain medication, but he has multiple outpatient mental health providers who may be helpful in devising a plan to mitigate his risk of suicide. Inventory Assets Strengths: supportive family, has outpatient providers Risk Factors Assessment Male: Yes : Yes /single/: Yes Higher / Fall in social status: No Access to guns: No Health problems: Yes Mental Health Diagnoses: Yes Substance use disorders: Yes Previous attempt: No Family history of suicide: No Previous psychiatric stay: Yes Hopelessness: Yes Smoker: Yes Protective Factors Assessment Shinto beliefs: Yes : No Responsible for young children: No Employed: No Supportive family: Yes Good rapport with provider: Yes Recommendations (1) Suicidal ideation Q 15 min checks for safety. Encourage group attendance and participation, work on healthy coping skills and discharge safety plan - would recommend family member secure all medications prior to discharge and keep them locked so he will not have access to large amounts of pills. (2) Depression 05/13 - Continue home meds, including aripiprazole, venlafaxine XR, and gabapentin (being used for mood and pain), which he would like to increase to target pain - 1000mg tid. - Get records from outpatient psychiatrist, Dr. Vargas and coordinate care. - Consider increase in venlafaxine dose. (3) Chronic low back pain 05/13 - Continue home dose of Tramadol prn. Patient focused on getting "something else for pain," and thinks he may have seen a pain specialist in the past. Will contact Dr. Valencia, his PCP, to determine if this is something he is treating and if he'd support a referral to a pain specialist. Can also offer acetaminophen as needed, heating pad, ice packs, and would encourage gentle stretching and daily activity. Into doubt up-to-date patient handout on chronic pain, and the student doctor will review this with him in attempts to develop more realistic expectations for treatment of his chronic pain. (4) DM type 2 (diabetes mellitus, type 2) Diabetic diet, continue home insulin regimen, monitor blood sugar, and consult diabetic pharmacist. (5) Alcohol abuse Drinking 6-12 beers multiple times a week, but denies that it is a problem. Brief intervention was offered and accepted. Intervention was greater than 5 min in length. Brief interventions include: 1. Assess Readiness to Quit, 2. Advise: Help Patient to Reduce or Abstain from Alcohol, 3. Agree: Set Specific, Feasible Goals, 4. Assist: Anticipate barriers, Problem-Solving Solutions. Social work to 5. Arrange: Referrals to appropriate treatment. Summary of intervention: The patient is in precontemplation stage with regards to transtheoretical model of change. The patient is advised to decrease alcohol consumption due to depressant effects and risk of interactions with prescription medications. The patient agreed to consider this, and will be provided with recovery materials to continue to education self on how to cope with their condition without drinking. (6) Nicotine dependence Offered nicotine patch as needed for cravings. Patient was educated about the risks of ongoing nicotine use, and encouraged to consider cutting back or quitting. He is pre-contemplative. (7) Obesity Encourage healthy diet and exercise, as weight loss would likely help relieve pain. CPT Code Initial Hospital Care: 36968 Problem Qualifiers (1) Depression: Depression Type: major depressive disorder Major depression recurrence: recurrent Major depression episode severity: severe Psychotic features: without psychotic features (2) Nicotine dependence: Nicotine product type: cigarettes
[2017-05-13] MEDS: GABAPENTIN 800 MG TAB PO SCH ×2 (13:35→22:11)
[2017-05-13] MEDS: GABAPENTIN 100 MG CAP PO SCH ×2 (13:35→22:11)
[2017-05-13] MEDS ORDERED: GABAPENTIN 400 MG CAP PO SCH (14:00)
[2017-05-14 07:03] VITALS: BP_SYST 132; BP_SYST 147; BP_DIAS 72; BP_DIAS 84; PULSE 105; PULSE 94; TEMP 36.6
[2017-05-14 07:46] LABS: CHOLESTEROL/HDL RATIO 5.8
[2017-05-14] MEDS: ARIPIprazole TAB 15 MG TAB PO SCH (09:14)
[2017-05-14] MEDS: NICOTINE 21 MG/24 HR TDSY EXT SCH (09:14)
[2017-05-14] MEDS: GABAPENTIN 800 MG TAB PO SCH ×3 (09:15→21:31)
[2017-05-14] MEDS: VENLAFAXINE HCL XR 75 MG CAPXR PO SCH (09:15)
[2017-05-14] MEDS: GABAPENTIN 100 MG CAP PO SCH ×3 (09:15→21:31)
[2017-05-14] MEDS: INSULIN DETEMIR FLEXPEN/FLEX TOUCH 100 UNITS/ML 3ML SC SCH ×2 (09:22→21:32)
--- NOTE | 2017-05-14 09:23 | Pharmacy Progress Note ---
Glycemic Control Progress Note Date of Service May 14, 2017. Scope Glycemic Pharmacist consulted for glycemic control to write orders per [facility] inpatient glycemic control protocol. Objective Accuchecks BSG (last 24hrs): Test 05/13/17 12:05 05/13/17 17:07 05/13/17 20:36 05/14/17 08:05 Bedside Glucose 242 mg/dl (70-99) 148 mg/dl (70-99) 223 mg/dl (70-99) 166 mg/dl (70-99) HbA1c: 7.8% on 03/21/17 Recent Pertinent Medications Outpatient Anti-diabetic Regimen: * Levemir 30 units SQ BID * NovoLog with meals --> admits that he is not very compliant with this The patient is currently receiving: * Basal insulin: Levemir 30 units every 12 hours * Correctional Insulin: Novolog Correction per scale ACHS Goal Range: Low 110 mg/dL - High 140 mg/dL Correction Factor: 20 mg/dL/unit * Prandial insulin: Per carb ratio of 1 unit per 7 grams CHO consumed Assessment & Plan ASSESSMENT: * See progress note from 05/13/17 for more background info, in short: * Pt receiving SQ basal bolus insulin regimen for hyperglycemia secondary to baseline DM * Patient is currently receiving an average of 93 units of insulin per day * 60 units of basal insulin * 33 units of prandial/correctional insulin * BSGs ranging 148 - 189 mg/dl over the past 24hrs * Changes needed to insulin regimen: * AM Fasting BSG = 168 mg/dl. This is slightly above goal range for patient based on inpatient targets and co-morbidities. However, Levemir may not quite be at steady state since he missed a dose on 05/12 PM. AM fasting BSG is trending downwards therefore will continue current dosing. Will increase dosing if AM fasting BSG remains high after a few days. * Post-prandial BSGs are elevated/BSGs rise throughout the day therefore need to tighten CF/CR. Additionally, majority of regimen is basal insulin. More prandial coverage is needed to control hyperglycemia. * Estimating total daily dose of insulin needed for adequate control is ~ 100 units PLAN FOR INPATIENT GLYCEMIC CONTROL: * Basal insulin: No change * Levemir 30 units SQ BID * Bolus insulin: Tighten CF/CR * NovoLog per scale ACHS or Q6hrs while NPO * Goal Range: Low 110 mg/dL - High 140 mg/dL * Correction Factor: 15 mg/dL/unit * Nutritional / Prandial insulin per carb ratio of 1 unit per 5 grams CHO consumed * Please note that the plan above was derived based on current level of insulin resistance and hospital stress. These recommendations are appropriate for inpatient admission only. Plan of care upon discharge will need to be reassessed to avoid potential outpatient hypo/hyperglycemia. Thank you.
[2017-05-14] MEDS: INSULIN ASPART 100 UNITS/ML 3 ML PEN SC SCH ×4 (09:24→21:33)
[2017-05-14] MEDS ORDERED: DICLOFENAC SOD 1% GEL 100 GM TUBE EXT PRN (11:45)
--- NOTE | 2017-05-14 12:02 | Psychiatric Progress Notes ---
Progress Note Date of Service May 14, 2017. Interval History Bry Akhtar is a 41-year-old male from [place] who has been seen multiple times on consult service following the of his last year. He continues to reside in a campground [facility] with his mother. He has a history of recurrent depression and chronic pain who presented to the ER on 05/12 with pain and endorsed SI. He was admitted on a 201 voluntary commitment. Chief Complaint "I said something I shouldn't have, I want to live but I'm frustrated they can' t find a reason for my pain". Subjective Patient was seen & assessed interval progress reviewed with Treatment Team. No acute issues overnight in that he seems cooperative with staff/unit routine. He complains of chronic low back discomfort in general but is redirectible from it, he expresses thanks for care he has received at [facility] from Faviola Andersen and myself. He is tolerating increase in Neurontin without sedation. He declines a PT referral and is very focussed on his diet. Reviewed gluc checks and am labs. Review of Systems Psych: denies symptoms other than stated above Constitutional: denied Cardiovascular: denied GI: denied Neurologic: denied Remainder of 10 body systems also reviewed and denied other than noted above. Sleep Information Total Hours of Sleep: 8.50 Meal Information Percent of Breakfast Consumed: 100 Percent of Lunch Consumed: 100 Percent of Dinner Consumed: 100 Mental Status Exam During interview pt is: alert and oriented, cooperative Appearance: appropriately dressed Eye contact is: good Motor behavior is: steady gait & station, no abnormal motor movements Speech: loud Affect: mood congruent Mood is: depressed Thought process: goal directed, concrete Thought content: reality based without delusions Suicidal thought are: denied Homicidal thoughts are: denied Hallucinations: denies auditory, denies visual Cognition: attention grossly intact, language grossly intact Intelligence estimated to be: average Insight: limited Judgement: limited Impression 41-year-old white male with multiple medical problems including obesity , diabetes, hyperlipidemia, and chronic pain as well as recurrent depression and alcohol and nicotine abuse who presents with suicidality in the context of chronic pain and multiple psychosocial stressors. He has limited understanding of chronic pain and his substance abuse, wanting a medication to take away all pain, and lacks insight into the risks of continuing to drink and smoke excessively. Plan (1) Suicidal ideation Q 15 min checks for safety. Encourage group attendance and participation, work on healthy coping skills and discharge safety plan - would recommend family member secure all medications prior to discharge and keep them locked so he will not have access to large amounts of pills. (2) Depression 05/13 - Continue home meds, including aripiprazole, venlafaxine XR, and gabapentin (being used for mood and pain), which he would like to increase to target pain - 1000mg tid. - Get records from outpatient psychiatrist, Dr. Vargas and coordinate care. - Consider increase in venlafaxine dose. 05/14 -- titrate Effexor XR to 187.5 mg with plan to increase to 225 mg prior to discharge. (3) Chronic low back pain 05/13 - Continue home dose of Tramadol prn. Patient focused on getting "something else for pain," and thinks he may have seen a pain specialist in the past. Will contact Dr. Valencia, his PCP, to determine if this is something he is treating and if he'd support a referral to a pain specialist. Can also offer acetaminophen as needed, heating pad, ice packs, and would encourage gentle stretching and daily activity. Into doubt up-to-date patient handout on chronic pain, and the student doctor will review this with him in attempts to develop more realistic expectations for treatment of his chronic pain. 05/14 --patient remains concrete with regards to coping skills and reviewed pain focus is way his mind avoids thoughts of loneliness, topical measure may provide at least psychological comfort and he would be agreeable to trying Voltaren gel. Consider lidocaine patch. (4) DM type 2 (diabetes mellitus, type 2) Diabetic diet, continue home insulin regimen, monitor blood sugar, and consult diabetic pharmacist. (5) Alcohol abuse Drinking 6-12 beers multiple times a week, but denies that it is a problem. Brief intervention was offered and accepted. Intervention was greater than 5 min in length. Brief interventions include: 1. Assess Readiness to Quit, 2. Advise: Help Patient to Reduce or Abstain from Alcohol, 3. Agree: Set Specific, Feasible Goals, 4. Assist: Anticipate barriers, Problem-Solving Solutions. Social work to 5. Arrange: Referrals to appropriate treatment. Summary of intervention: The patient is in precontemplation stage with regards to transtheoretical model of change. The patient is advised to decrease alcohol consumption due to depressant effects and risk of interactions with prescription medications. The patient agreed to consider this, and will be provided with recovery materials to continue to education self on how to cope with their condition without drinking. (6) Nicotine dependence Offered nicotine patch as needed for cravings. Patient was educated about the risks of ongoing nicotine use, and encouraged to consider cutting back or quitting. He is pre-contemplative. (7) Obesity Encourage healthy diet and exercise, as weight loss would likely help relieve pain. 05/14--he is resistant to 1800 sharon ADA diet, will consult nutrition as he is requesting meat with breakfast/etc. Note also that he has untreated sleep apnea as cannot tolerate mask. Reviewed with him that fatigue from this also has an impact on his perception of pain. Discharge / Aftercare Planning Primary Care Physician: Name: Dr Valencia Psychiatrist: Name: Dr Alberto Date of Appointment: May 20, 2017 Time of Appointment: 3:30pm Therapist: Name: Antonio Marion Phone Number: [phone] Date of Appointment: May 21, 2017 Time of Appointment: 1:00pm Chief Executive Or Managing Director: Name: Jenae B[employer] Making Machine Operator: Name: Jitendra Other: Name of Appointment #1: [facility] Phone Number: [phone] Inventory Assets Strengths: supportive family, has outpatient providers Risk Factors Assessment Male: Yes : Yes /single/: Yes Higher / Fall in social status: No Health problems: Yes Mental Health Diagnoses: Yes Substance use disorders: Yes Previous attempt: No Family history of suicide: No Previous psychiatric stay: Yes Hopelessness: Yes Smoker: Yes Protective Factors Assessment Denominational beliefs: Yes : No Responsible for young children: No Employed: No Supportive family: Yes Good rapport with provider: Yes Data Vital Signs Last 24 Hrs: Date Time Temp Pulse Resp B/P (MAP) Pulse Ox O2 Delivery O2 Flow Rate FiO2 05/14/17 07:03 36.6 94 16 147/84 105 132/72 Meds Administered Last 24 Hrs: Meds Administered (Past 24Hrs) Medications (Trade) Dose Ordered Sig/Mario Alberto Route Start Time Stop Time Status Last Admin Dose Admin Ketorolac Tromethamine (Toradol Inj) 30 mg NOW STAT IV 05/12/17 21:27 05/12/17 21:29 DC 05/12/17 22:03 30 MG Sodium Chloride 1,000 ml @ 999 mls/hr Q1H1M STAT IV 05/12/17 21:27 05/12/17 22:27 DC 05/12/17 22:02 999 MLS/HR Ondansetron HCl (Zofran Inj) 4 mg NOW STAT IV 05/12/17 21:27 05/12/17 21:29 DC 05/12/17 22:02 4 MG Nicotine (Nicoderm Cq 21MG Patch) 1 patch QAM EXT 05/13/17 09:00 06/12/17 08:59 05/14/17 09:14 1 PATCH Miscellaneous (Remove Nicoderm Patch) 1 ea QAM N/A 05/14/17 09:00 06/13/17 08:59 05/14/17 09:14 1 EA Aripiprazole (Abilify Tab) 15 mg DAILY PO 05/13/17 09:00 06/12/17 08:59 05/14/17 09:14 15 MG Insulin Detemir (Levemir Flexpen/ FlexTouch) 30 units BID SC 05/13/17 09:00 05/13/17 10:41 DC 05/13/17 09:24 30 UNITS Venlafaxine HCl (effeXOR EXTENDED REL CAP) 150 mg DAILY PO 05/13/17 09:00 06/12/17 08:59 05/14/17 09:15 150 MG Insulin Aspart (novoLOG ASPART) SLIDING SCALE ACHS SC 05/13/17 08:00 06/12/17 07:59 05/14/17 09:24 16 UNITS Gabapentin (Neurontin Tab) 800 mg 1006 ONCE PO 05/13/17 10:06 05/13/17 10:23 DC 05/13/17 10:42 800 MG Gabapentin (Neurontin Tab) 800 mg TID PO 05/13/17 14:00 06/12/17 13:59 05/14/17 09:15 800 MG Gabapentin (Neurontin Cap) 200 mg TID PO 05/13/17 14:00 06/12/17 13:59 05/14/17 09:15 200 MG Insulin Detemir (Levemir Flexpen/ FlexTouch) see protocol text BID NJ 05/13/17 22:00 05/14/17 08:16 DC 05/13/17 22:12 30 UNITS Insulin Detemir (Levemir Flexpen/ FlexTouch) 30 units BID NJ 05/14/17 09:00 06/13/17 08:59 05/14/17 09:22 30 UNITS Lab Results Last 24 Hrs: Last 24 Hours Test 05/13/17 12:05 05/13/17 17:07 05/13/17 20:36 05/14/17 06:52 Bedside Glucose 242 mg/dl 148 mg/dl 223 mg/dl Fasting Glucose 168 mg/dl Triglycerides Level 250 mg/dl Cholesterol Level 222 mg/dl HDL Cholesterol 38 mg/dl LDL Cholesterol, Calculated 134 mg/dl VLDL Cholesterol, Calculated 50 mg/dl Cholesterol/HDL Ratio 5.8 Test 05/14/17 08:05 Bedside Glucose 166 mg/dl Problem Qualifiers (1) Depression: Depression Type: major depressive disorder Major depression recurrence: recurrent Major depression episode severity: severe Psychotic features: without psychotic features (2) Nicotine dependence: Nicotine product type: cigarettes
[2017-05-14] MEDS: TRAMADOL HCL 50 MG TAB PO PRN ×2 (14:18→22:50)
[2017-05-15 07:00] VITALS: BP_SYST 103; BP_SYST 114; BP_DIAS 68; BP_DIAS 78; PULSE 90; TEMP 36.2
[2017-05-15] MEDS: ARIPIprazole TAB 15 MG TAB PO SCH (08:53)
[2017-05-15] MEDS: NICOTINE 21 MG/24 HR TDSY EXT SCH (08:53)
[2017-05-15] MEDS: VENLAFAXINE HCL XR 150 MG CAPXR PO SCH (08:53)
[2017-05-15] MEDS: GABAPENTIN 100 MG CAP PO SCH ×3 (08:54→21:09)
[2017-05-15] MEDS: GABAPENTIN 800 MG TAB PO SCH ×3 (08:54→21:08)
[2017-05-15] MEDS: VENLAFAXINE HCL XR 37.5 MG CAPXR PO SCH (08:54)
[2017-05-15] MEDS: INSULIN ASPART 100 UNITS/ML 3 ML PEN SC SCH ×4 (09:10→21:11)
[2017-05-15] MEDS: INSULIN DETEMIR FLEXPEN/FLEX TOUCH 100 UNITS/ML 3ML SC SCH ×2 (09:11→21:13)
--- NOTE | 2017-05-15 13:09 | Psychiatric Progress Notes ---
Progress Note Date of Service May 15, 2017. Interval History Bry Akhtar is a 41-year-old male from [place] who has been seen multiple times on consult service following the of his last year. He continues to reside in a campground [facility] with his mother. He has a history of recurrent depression and chronic pain who presented to the ER on 05/12 with pain and endorsed SI. He was admitted on a 201 voluntary commitment. Chief Complaint "I want you to change my diet". Subjective Patient was seen & assessed interval progress reviewed with nursing and Dr Gates and this provider Chart reviewed. Patient states he would like his diet changed arguing he does not eat a diabetic diet at home and he does not want to do so here. He asks about medications for his "stress...because we learned today that stress can worsen back pain and blood sugars" not seeming to initially understand that his venlafaxine increase and his neurontin increase are for this purpose. He states he does feel anxious, but has difficulty articulating. He does feel upset about his diet but then understands why we have consulted the asthma educator to talk about options and compromise to help manage his DM. He then agrees He asks to sleep in the safe room to avoid disrupting his roommate with his snoring. He has DAMION but states he could not tolerate CPAP shares several reasons, despite effort at mask adjustments. He has not returned to Sleep Medicine for discussion of other treatments.Discussed how untreated DAMION can impact his overall health. He states he is taking and tolerating the gabapentin and effexor well, and denies SE. He denies other physical concerns other than noted above. He denies overt SI, intention or plan at this time. Review of Systems as above Sleep Information Total Hours of Sleep: 6.25 Meal Information Percent of Breakfast Consumed: 100 Percent of Lunch Consumed: 100 Percent of Dinner Consumed: 100 Mental Status Exam During interview pt is: alert and oriented, cooperative Appearance: appropriately dressed Eye contact is: good Motor behavior is: steady gait & station, no abnormal motor movements Speech: loud Affect: other (intense affect with a slightly demanding intrusive quality of his displeasure but not irritable) Mood is: other ("fine" but displays intense demanding displeased manner) Thought process: goal directed, concrete Thought content: reality based without delusions Suicidal thought are: denied Homicidal thoughts are: denied Hallucinations: denies auditory, denies visual Cognition: attention grossly intact, language grossly intact Intelligence estimated to be: average Insight: limited Judgement: limited Impression 41-year-old white male with multiple medical problems including obesity , diabetes, hyperlipidemia, and chronic pain as well as recurrent depression and alcohol and nicotine abuse who presents with suicidality in the context of chronic pain and multiple psychosocial stressors. He has limited understanding of chronic pain and his substance abuse, wanting a medication to take away all pain, and lacks insight into the risks of continuing to drink and smoke excessively. Plan (1) Suicidal ideation Q 15 min checks for safety. Encourage group attendance and participation, work on healthy coping skills and discharge safety plan - would recommend family member secure all medications prior to discharge and keep them locked so he will not have access to large amounts of pills. 04/18/17 - need to assure aftercare and plan for medications to be monitored either through limited scripts or family locking, this requires family meeting (2) Depression 05/13 - Continue home meds, including aripiprazole, venlafaxine XR, and gabapentin (being used for mood and pain), which he would like to increase to target pain - 1000mg tid. - Get records from outpatient psychiatrist, Dr. Vargas and coordinate care. - Consider increase in venlafaxine dose. 05/14 and 05/15 -- titrate Effexor XR to 187.5 mg with plan to increase to 225 mg prior to discharge. (3) Chronic low back pain 05/13 - Continue home dose of Tramadol prn. Patient focused on getting "something else for pain," and thinks he may have seen a pain specialist in the past. Will contact Dr. Valencia, his PCP, to determine if this is something he is treating and if he'd support a referral to a pain specialist. Can also offer acetaminophen as needed, heating pad, ice packs, and would encourage gentle stretching and daily activity. Into doubt up-to-date patient handout on chronic pain, and the student doctor will review this with him in attempts to develop more realistic expectations for treatment of his chronic pain. 05/14 and 05/15 --patient remains concrete with regards to coping skills and reviewed pain focus is way his mind avoids thoughts of loneliness, topical measure may provide at least psychological comfort and he would be agreeable to trying Voltaren gel. Consider lidocaine patch. (4) DM type 2 (diabetes mellitus, type 2) Diabetic diet, continue home insulin regimen, monitor blood sugar, and consult diabetic pharmacist. 05/14 and 05/15 - would appreciated diabetes nurse educator to help patient with understanding of diet choices and to find compromise from strictest diabetic diet but not as liberal as his outpatient diet and making suggestions for our staff and patient to then interact with dietary, as well as to educate the patient overall (5) Alcohol abuse Drinking 6-12 beers multiple times a week, but denies that it is a problem. Brief intervention was offered and accepted. Intervention was greater than 5 min in length. Brief interventions include: 1. Assess Readiness to Quit, 2. Advise: Help Patient to Reduce or Abstain from Alcohol, 3. Agree: Set Specific, Feasible Goals, 4. Assist: Anticipate barriers, Problem-Solving Solutions. Social work to 5. Arrange: Referrals to appropriate treatment. Summary of intervention: The patient is in precontemplation stage with regards to transtheoretical model of change. The patient is advised to decrease alcohol consumption due to depressant effects and risk of interactions with prescription medications. The patient agreed to consider this, and will be provided with recovery materials to continue to education self on how to cope with their condition without drinking. (6) Nicotine dependence Offered nicotine patch as needed for cravings. Patient was educated about the risks of ongoing nicotine use, and encouraged to consider cutting back or quitting. He is pre-contemplative. (7) Obesity Encourage healthy diet and exercise, as weight loss would likely help relieve pain. 05/14--he is resistant to 1800 sharon ADA diet, will consult nutrition as he is requesting meat with breakfast/etc. Note also that he has untreated sleep apnea as cannot tolerate mask. Reviewed with him that fatigue from this also has an impact on his perception of pain. (8) Obstructive sleep apnea - diagnosed as outpatient, patient reports poor tolerability of CPAP in the past , declines CPAP - recommend outpatient f/u with Dr Olivares and likely Dr Greene to discuss additional interventions (e.g. surgery or retrial of CPAP, or partial help with oral appliance) Discharge / Aftercare Planning Primary Care Physician: Name: Dr Valencia Psychiatrist: Name: Dr Alberto Date of Appointment: May 20, 2017 Time of Appointment: 3:30pm Therapist: [facility] Phone Number: [phone] Date of Appointment: May 21, 2017 Time of Appointment: 1:00pm Systems Analyst Developer: Name: Jenae Trumpet Player: Name: Jitendra Other: Name of Appointment #1: [facility] Phone Number: [phone] Visit Code E&M Code: 58721 Inventory Assets Strengths: supportive family, has outpatient providers Risk Factors Assessment Male: Yes : Yes /single/: Yes Higher / Fall in social status: No Health problems: Yes Mental Health Diagnoses: Yes Substance use disorders: Yes Previous attempt: No Family history of suicide: No Previous psychiatric stay: Yes Hopelessness: Yes Smoker: Yes Protective Factors Assessment Jain beliefs: Yes : No Responsible for young children: No Employed: No Supportive family: Yes Good rapport with provider: Yes Data Vital Signs Last 24 Hrs: Date Time Temp Pulse Resp B/P (MAP) Pulse Ox O2 Delivery O2 Flow Rate FiO2 05/15/17 07:00 36.2 90 18 114/78 90 103/68 Meds Administered Last 24 Hrs: Meds Administered (Past 24Hrs) Medications (Trade) Dose Ordered Sig/Mario Alberto Route Start Time Stop Time Status Last Admin Dose Admin Miscellaneous (Remove Nicoderm Patch) 1 ea QAM N/A 05/14/17 09:00 06/13/17 08:59 05/15/17 08:53 1 EA Gabapentin (Neurontin Tab) 800 mg TID PO 05/13/17 14:00 06/12/17 13:59 05/15/17 08:54 800 MG Gabapentin (Neurontin Cap) 200 mg TID PO 05/13/17 14:00 06/12/17 13:59 05/15/17 08:54 200 MG Insulin Detemir (Levemir Flexpen/ FlexTouch) see protocol text BID SC 05/13/17 22:00 05/14/17 08:16 DC 05/13/17 22:12 30 UNITS Insulin Detemir (Levemir Flexpen/ FlexTouch) 30 units BID SC 05/14/17 09:00 06/13/17 08:59 05/15/17 09:11 30 UNITS Venlafaxine HCl (effeXOR EXTENDED REL CAP) 37.5 mg DAILY PO 05/15/17 09:00 06/12/17 08:59 05/15/17 08:54 37.5 MG Venlafaxine HCl (effeXOR EXTENDED REL CAP) 150 mg DAILY PO 05/15/17 09:00 06/14/17 08:59 05/15/17 08:53 150 MG Lab Results Last 24 Hrs: Last 24 Hours Test 05/14/17 16:01 05/14/17 21:10 05/15/17 08:45 05/15/17 12:21 Bedside Glucose 111 mg/dl 166 mg/dl 156 mg/dl 182 mg/dl Problem Qualifiers (1) Depression: Depression Type: major depressive disorder Major depression recurrence: recurrent Major depression episode severity: severe Psychotic features: without psychotic features (2) Nicotine dependence: Nicotine product type: cigarettes
[2017-05-15] MEDS: TRAMADOL HCL 50 MG TAB PO PRN (15:26)
[2017-05-15] MEDS: NICOTINE POLACRILEX 2 MG GUM MT PRN (20:36)
[2017-05-16 06:45] VITALS: BP_SYST 117; BP_SYST 119; BP_DIAS 77; BP_DIAS 79; PULSE 94; PULSE 99; TEMP 36.3
[2017-05-16] MEDS: ARIPIprazole TAB 15 MG TAB PO SCH (09:10)
[2017-05-16] MEDS: GABAPENTIN 100 MG CAP PO SCH ×3 (09:10→21:29)
[2017-05-16] MEDS: GABAPENTIN 800 MG TAB PO SCH ×3 (09:10→21:29)
[2017-05-16] MEDS: VENLAFAXINE HCL XR 150 MG CAPXR PO SCH (09:10)
[2017-05-16] MEDS: NICOTINE 21 MG/24 HR TDSY EXT SCH (09:10)
[2017-05-16] MEDS: VENLAFAXINE HCL XR 37.5 MG CAPXR PO SCH (09:11)
[2017-05-16] MEDS: INSULIN DETEMIR FLEXPEN/FLEX TOUCH 100 UNITS/ML 3ML SC SCH ×2 (09:13→21:30)
[2017-05-16] MEDS: INSULIN ASPART 100 UNITS/ML 3 ML PEN SC SCH ×4 (09:15→21:33)
[2017-05-16] MEDS: TRAMADOL HCL 50 MG TAB PO PRN ×2 (10:03→21:37)
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
--- NOTE | 2017-05-16 13:27 | Pharmacy Progress Note ---
Glycemic Control Progress Note Date of Service May 16, 2017. Scope Glycemic Pharmacist consulted for glycemic control to write orders per [facility] ED inpatient glycemic control protocol. Objective Accuchecks BSG (last 24hrs): Test 05/15/17 17:19 05/15/17 20:49 05/16/17 08:15 05/16/17 12:39 Bedside Glucose 126 mg/dl (70-99) 162 mg/dl (70-99) 151 mg/dl (70-99) 168 mg/dl (70-99) Recent Pertinent Medications The patient is currently receiving: * Basal insulin: Lantus 30 units every 12 hours * Correctional Insulin: Novolog Correction per scale ACHS Goal Range: Low 110 mg/dL - High 140 mg/dL Correction Factor: 15 mg/dL/unit * Prandial insulin: Per carb ratio of 1 unit per 5 grams CHO consumed Outpatient Anti-Diabetic Meds Basal Insulin + Bolus Insulin *Patient noncompliant with Novolog with meals Assessment & Plan ASSESSMENT: * See progress note from 05/13/17 for more background info, in short: * Pt receiving SQ basal bolus insulin regimen for hyperglycemia secondary to baseline DM * Patient is currently receiving an average of 110 units of insulin per day * 60 units of basal insulin * 50 units of prandial/correctional insulin * BSGs ranging 126-182 mg/dl over the past 24hrs * Changes needed to insulin regimen: * AM Fasting BSG = 155 mg/dl. This is slightly above goal range for patient based on inpatient targets and co-morbidities. Levemir is at steady state so an increase is warranted. * Post-prandial BSGs remain stable through the day. Hold off on any changes at this time. Consider change carb ratio to 4.5 tomorrow. * Estimating total daily dose of insulin needed for adequate control is ~120 units PLAN FOR INPATIENT GLYCEMIC CONTROL: * Basal insulin: Increase * Levemir 34 units SQ BID * Bolus insulin: Continue * NovoLog per scale ACHS or Q6hrs while NPO * Goal Range: Low 110 mg/dL - High 140 mg/dL * Correction Factor: 15 mg/dL/unit * Nutritional / Prandial insulin per carb ratio of 1 unit per 5 grams CHO consumed * Please note that the plan above was derived based on current level of insulin resistance and hospital stress. These recommendations are appropriate for inpatient admission only. Plan of care upon discharge will need to be reassessed to avoid potential outpatient hypo/hyperglycemia. Thank you.
[2017-05-16] MEDS: NICOTINE POLACRILEX 2 MG GUM MT PRN ×3 (14:34→21:38)
[2017-05-17 06:44] VITALS: BP_SYST 114; BP_SYST 121; BP_DIAS 76; BP_DIAS 78; PULSE 101; PULSE 114; TEMP 36.6
[2017-05-17] MEDS: NICOTINE 21 MG/24 HR TDSY EXT SCH (08:11)
[2017-05-17] MEDS: ARIPIprazole TAB 15 MG TAB PO SCH (08:11)
[2017-05-17] MEDS: VENLAFAXINE HCL XR 37.5 MG CAPXR PO SCH (08:12)
[2017-05-17] MEDS: GABAPENTIN 100 MG CAP PO SCH ×2 (08:12→13:32)
[2017-05-17] MEDS: VENLAFAXINE HCL XR 150 MG CAPXR PO SCH (08:12)
[2017-05-17] MEDS: GABAPENTIN 800 MG TAB PO SCH ×2 (08:12→13:32)
--- NOTE | 2017-05-17 08:46 | Discharge Instructions ---
Discharge Information Report Includes Report will include the: Discharge Instructions & Summary Admission Admission Date / Time: May 13, 2017 at 03:23 Reason for Admission: Suicidal With A Plan To Overdose Discharge Discharge Diagnosis / Problem: Depression, chronic pain, alcohol use disorder Condition at Discharge: Good Discharge Goals Goal(s): Improve function, Improve disease control, Learn about illness, Therapeutic intervention, Specific goals (Refer for outpatient treatment of chronic pain) Activity Recommendations Activity Limitations: per Instructions/Follow-up section . Instructions / Follow-Up Instructions / Follow-Up . SPECIAL CARE INSTRUCTIONS: 1. Follow through with your scheduled aftercare appointments. If unable to keep an appointment, please call to reschedule. 2. Take your medication only as prescribed. Medication should not be changed or stopped without the approval of your doctor. In the event of worsening symptoms or concerns about side effects, contact your doctor immediately. 3. Utilize new healthy coping skills, anger management skills, and stress management skills learned during your hospitalization. Journal feelings and process them with a support person. Identify stressors or situations that may result in relapse, deterioration or inappropriate behaviors and develop a plan to deal with those issues. 4. If your coping skills are ineffective and you are in crisis, contact your outpatient providers for direction. If unable to reach your providers, please call the CAN HELP LINE AT or go to the closest Emergency Room. 5. Avoid alcohol and un-prescribed drugs. 6. You have been provided with the Mental Health Advance Directives Pamphlet for your review. AFTERCARE APPOINTMENTS: * Please call your insurance company prior to your scheduled appointment to confirm your aftercare providers are covered. Take your insurance information to your appointments. . Discharge / Aftercare Planning Primary Care Physician: Name: Dr Valencia Psychiatrist: Name: Dr Alberto Date of Appointment: May 20, 2017 Time of Appointment: 3:30pm Therapist: Name Of Therapist: Antonio Marion Phone Number: [phone] Date of Appointment: May 21, 2017 Time of Appointment: 1:00pm Jewelry Sales Representative: Name: Jenae Oracle Database Developer: Name: Jitendra Other: Name of Appointment #1: [facility] Phone Number: [phone] . Follow-Up Care Plan for Follow-Up Care: See above. Current Hospital Diet Patient's current hospital diet: Diabetes Type 2 Diet Discharge Diet Recommended Diet: Diabetes Type 2 Diet Procedures Procedures Performed: No Pending Studies Pending Studies at Discharge: No Work Instructions Return To Work: 2 days Medical Emergencies . Who to Call and When: Medical Emergencies: For questions or emergencies related to your hospital stay, please contact the Inpatient Behavioral Health Unit at [phone]. A gas fitter helper is on-call 10/05 for the Behavioral Health Unit for emergencies At any time you feel your situation is an emergency, you may also call 911 immediately. . Non-Emergent Contact Non-Emergency issues call your: Primary Care Provider, Psychiatrist, Therapist , Jewelry Sales Representative Advance Directives Existing Advance Directive: No Do You Have an Existing Mental: No Existing Living Will: No Existing Power of Attendant Lodging Facilities: No Advance Directives Info Given: To Pt/S.O. Advance Directives Reason: Declines as Mental Health Visit. Discharge Summary Admission HPI Per the Admitting provider: The patient was seen with Radha Chavis MS3. He states he has been struggling with chronic back pain, and has been to the ER and his outpatient doctor and told "they can't find anything wrong... well if there's nothing wrong, it must all be in my head, because I'm in pain." He says he was in pain last night and told his nephew he might as well overdose on all his meds to end his life. He says he doesn't want to , but didn't know what else to do when he was in pain. He was seen in the ER 05/09 after he called 911 for back pain which caused him to have to sit down and he couldn't stand back up, and it was his third ER visit that month. He had an MRI of his L-spine which showed mild multilevel degenerative changes, no fracture of subluxation, and no lesions. He was diagnosed with musculoskeletal pain and instructed to continue oral Tramadol and follow up with his PCP that week. He has also been seen on our psychiatric consultation service for depression in the past. Reports low mood, chronic lack of energy and motivation, decreased appetite x months but no weight loss, but denies anhedonia, guilt, problems with concentration. Denies panic and FAYE symptoms other than episodic muscle tension which occurs when anxious, less than daily, last happened when he was at [place]. He reports AVH in the past, saying he has heard voices calling his name , and this last occurred weeks to months ago when at [place]. He has seen " a black blur" that appears to "fly by" at times in the past, remotely, cannot say when last happened. He denies eating disorder, ezb and OCD symptoms. He says he has been diagnosed with PTSD in the past, after his cousin was killed when the patient was 7 years old, he was crying, and his aunt told him not to cry as "it doesn't do any good." Denies current PTSD symptoms. He states his primary stressor is pain, but also in 06/2016 from leukemia, and he has financial strain, is unemployed, and is trying to get disability. His goals of treatment are "give me something to help with pain." He says the Tramadol "doesn't really help," but he has been taking 2 tabs daily since Wednesday, as he says "it helps a little bit." Admission Exam Per the Admitting provider: Please see admission H&P. Consultations None. Hospital Course (1) Suicidal ideation Q 15 min checks for safety. Encourage group attendance and participation, work on healthy coping skills and discharge safety plan - would recommend family member secure all medications prior to discharge and keep them locked so he will not have access to large amounts of pills. 05/15 and 05/16/17 - need to assure aftercare and plan for medications to be monitored either through limited scripts or family locking, this requires family meeting 05/17 - Patient declining family meeting. He has extensive outpatient services including Mobile med management, operator specialist communications, machine adjuster leader case trim, therapy, and psychiatric follow up. He is able to review his safety plan. (2) Depression 05/13 - Continue home meds, including aripiprazole, venlafaxine XR, and gabapentin (being used for mood and pain), which he would like to increase to target pain - 1000mg tid. - Get records from outpatient psychiatrist, Dr. Vargas and coordinate care. - Consider increase in venlafaxine dose. 05/14 and 05/15 -- titrate Effexor XR to 187.5 mg with plan to increase to 225 mg prior to discharge 05/16/17 - stable and tolerating Effexor XR 187.5mg and will continue. Lipids from TG 250, TC 222, LDL 134, HDL 38. Agree with diabetic nurse educator while inpatient, and that Dr Aceves and PCM be given results for ongoing management 05/17/17 - Provided prescriptions for Effexor XR and gabapentin (for increased doses). (3) Chronic low back pain 05/13 - Continue home dose of Tramadol prn. Patient focused on getting "something else for pain," and thinks he may have seen a pain specialist in the past. Will contact Dr. Valencia, his PCP, to determine if this is something he is treating and if he'd support a referral to a pain specialist. Can also offer acetaminophen as needed, heating pad, ice packs, and would encourage gentle stretching and daily activity. Into doubt up-to-date patient handout on chronic pain, and the student doctor will review this with him in attempts to develop more realistic expectations for treatment of his chronic pain. 05/14 and 05/15 --patient remains concrete with regards to coping skills and reviewed pain focus is way his mind avoids thoughts of loneliness, topical measure may provide at least psychological comfort and he would be agreeable to trying Voltaren gel. Consider lidocaine patch. 05/16/17 - need to contact Dr Valencia as noted on 05/13/17 note above and consider f /u with PCM vs. pain management for pain prior to discharge as this is a risk factor for patient's safety 05/17/17 - F/u with Dr. Valencia 05/24. Send records to coordinate care. (4) DM type 2 (diabetes mellitus, type 2) Diabetic diet, continue home insulin regimen, monitor blood sugar, and consult diabetic pharmacist. 05/14 and 05/15 - would appreciated diabetes nurse educator to help patient with understanding of diet choices and to find compromise from strictest diabetic diet but not as liberal as his outpatient diet and making suggestions for our staff and patient to then interact with dietary, as well as to educate the patient overall (5) Alcohol abuse Drinking 6-12 beers multiple times a week, but denies that it is a problem. Brief intervention was offered and accepted. Intervention was greater than 5 min in length. Brief interventions include: 1. Assess Readiness to Quit, 2. Advise: Help Patient to Reduce or Abstain from Alcohol, 3. Agree: Set Specific, Feasible Goals, 4. Assist: Anticipate barriers, Problem-Solving Solutions. Social work to 5. Arrange: Referrals to appropriate treatment. Summary of intervention: The patient is in precontemplation stage with regards to transtheoretical model of change. The patient is advised to decrease alcohol consumption due to depressant effects and risk of interactions with prescription medications. The patient agreed to consider this, and will be provided with recovery materials to continue to education self on how to cope with their condition without drinking. 05/16/17 - attempted again to discuss with patient and he remains pre-contemplational , recommend avoiding controlled substances and limiting alcohol to <6 drinks per occasion and < 11 drinks/week to be reinforced with his outpatient supports (e.g. PCM, machine adjuster leader case trim, psychiatrist, therapist, family, etc) (6) Nicotine dependence Offered nicotine patch as needed for cravings. Patient was educated about the risks of ongoing nicotine use, and encouraged to consider cutting back or quitting. He is pre-contemplative. 05/15 and 05/16 - ongoing craving, added prn gum in addition ot the patch, he remains pre- contemplation stage regarding cessation 05/17 - Patient requesting nicotine patches and gum at discharge, and will refer to [place] Quit Line for smoking cessation. (7) Obesity Encourage healthy diet and exercise, as weight loss would likely help relieve pain. 05/14--he is resistant to 1800 sharon ADA diet, will consult nutrition as he is requesting meat with breakfast/etc. Note also that he has untreated sleep apnea as cannot tolerate mask. Reviewed with him that fatigue from this also has an impact on his perception of pain. (8) Obstructive sleep apnea - diagnosed as outpatient, patient reports poor tolerability of CPAP in the past , declines CPAP - recommend outpatient f/u with Dr Valencia and likely Dr Greene to discuss additional interventions (e.g. surgery or retrial of CPAP, or partial help with oral appliance) Risk Factors Assessment Male: Yes : Yes /single/: Yes Higher / Fall in social status: No Access to guns: No Health problems: Yes Mental Health Diagnoses: Yes Substance use disorders: Yes Previous attempt: No Family history of suicide: No Previous psychiatric stay: Yes Hopelessness: Yes Smoker: Yes Protective Factors Assessment Episcopalian beliefs: Yes : No Responsible for young children: No Employed: No Stable relationships: Yes Supportive family: Yes Good rapport with provider: Yes Absence of risk factors above: Yes (Risk factors mitigated by admission to the [facility], adjusting medications to target mood and pain, coordinating with outpatient providers, involving him in groups and therapy on the unit, offering a family meeting which he declined, and working on healthy coping skills and a discharge safety plan. The patient's mood has improved and he has consistently denied SI. He has been engaged in treatment, is tolerating medications well, and is requesting discharge. He is no longer at acute risk of harm to himself, so can be discharged and managed as an outpatient at this time. He does not have significant risk factors for harm to others.) Day of Discharge Assessment Hospital Course: On admission, the patient was focused on wanting medication adjustments to target his chronic pain, so his gabapentin was increased from 800 mg 3 times a day to 1000 mg 3 times a day. He tolerated this well and denied side effects. He declined a referral for physical therapy. His venlafaxine XR was also increased to target mood. He is very focused on his diet, and diabetic pharmacy , diabetic nurse educator, and dietitian consults were requested for assistance in educating him about his illness and treatment recommendations. He was educated about the risks of ongoing alcohol and nicotine abuse, and reported good response to nicotine patches and gum. He did not want his family involved , and declined multiple offers to have a family meeting with them. He was willing to allow staff to coordinate with his numerous outpatient providers, including mobile med management (staff met with him on the day of discharge), his outpatient therapist, psychiatrist, machine adjuster leader case trim, and peers specialist. He attended and participated in groups and therapy on the unit. He was social and appropriate in his interactions with peers and staff. He was noted to be performing his ADLs independently, eating and sleeping well, and taking prescribed medications without difficulty. Day of Discharge Assessment: The patient states his mood has improved significantly since discharge, states he feels ready to go home, and is requesting discharge today. He denies side effects to medications and denies thoughts of harming himself or anyone else. He is able to review the healthy coping skills he's been working on here as well as his discharge safety plan. He has numerous appointments set up for the next week, including his regular weekly appointments with his peers specialist, mobile med management, therapist, and machine adjuster leader case trim. He feels treatment has been helpful, and denies any concerns with discharge to home today. Well nourished, well developed WM appearing stated age. Casually dressed and adequately groomed. Calm and cooperative. Seated in NAD, with fair eye contact and no abnormal movements. Speech is normal rate, volume, and tone. Mood is "good," and affect is stable and congruent. Thoughts are concrete and goal directed. The patient denied suicidal and homicidal ideation and was able to safety plan. No paranoia, delusions, or hallucinations, and did not appear to be responding to internal stimuli. Cognition was grossly intact. Alert and oriented to person, place and time. Intelligence is consistent with level of education. Insight and and judgment are fair. Laboratory Test 05/12/17 21:52 05/13/17 00:30 05/14/17 06:52 05/16/17 17:12 White Blood Count 7.99 Red Blood Count 5.62 Hemoglobin 16.2 Hematocrit 48.3 Mean Corpuscular Volume 85.9 Mean Corpuscular Hemoglobin 28.8 Mean Corpuscular Hemoglobin Concent 33.5 Platelet Count 258 Mean Platelet Volume 8.9 Neutrophils (%) (Auto) 55.3 Lymphocytes (%) (Auto) 31.2 Monocytes (%) (Auto) 7.5 Eosinophils (%) (Auto) 4.5 Basophils (%) (Auto) 0.5 Neutrophils # (Auto) 4.42 Lymphocytes # (Auto) 2.49 Monocytes # (Auto) 0.60 Eosinophils # (Auto) 0.36 Basophils # (Auto) 0.04 RDW Standard Deviation 42.2 RDW Coefficient of Variation 13.3 Immature Granulocyte % (Auto) 1.0 Immature Granulocyte # (Auto) 0.08 Sodium Level 137 Potassium Level 3.7 Chloride Level 100 Carbon Dioxide Level 31 Anion Gap 6.0 Blood Urea Nitrogen 13 Creatinine 0.97 Est Creatinine Clear Calc Drug Dose 141.5 Estimated GFR () 110.4 Estimated GFR (Non- 95.2 BUN/Creatinine Ratio 13.2 Random Glucose 230 Calcium Level 9.4 Total Bilirubin 0.3 Direct Bilirubin < 0.1 Aspartate Amino Transferase (AST) 20 Alanine Aminotransferase (ALT) 46 Alkaline Phosphatase 83 Total Protein 8.1 Albumin 3.8 Lipase 147 Thyroid Stimulating Hormone (TSH) 1.060 Urine Color DK YELLOW Urine Appearance CLEAR Urine pH 5.5 Urine Specific [place] 1.039 Urine Protein TRACE Urine Glucose (UA) 3+ Urine Ketones TRACE Urine Occult Blood NEG Urine Nitrite NEG Urine Bilirubin NEG Urine Urobilinogen POS Urine Leukocyte Esterase NEG Urine WBC (Auto) 1-5 Urine RBC (Auto) 0-4 Urine Hyaline Casts (Auto) 5-10 Urine Epithelial Cells (Auto) >30 Urine Bacteria (Auto) NEG Urine Renal Epithelial Cells Urine Crystals CALCIUM OXALATE Urine Pathogenic Casts Urine Mucus PRESENT Urine Opiates Screen NEG Urine Methadone, Qualitative NEG Urine Barbiturates NEG Urine Phencyclidine (PCP) Level NEG Ur Amphetamine/Methamphetamine NEG MDMA (Ecstasy) Screen NEG Urine Benzodiazepines Screen NEG Urine Cocaine Metabolite NEG Urine Marijuana (THC) NEG Fasting Glucose 168 Triglycerides Level 250 Cholesterol Level 222 HDL Cholesterol 38 LDL Cholesterol, Calculated 134 VLDL Cholesterol, Calculated 50 Cholesterol/HDL Ratio 5.8 POC Glucose 120 Test 05/16/17 21:10 POC Glucose 173 Total Time Total Time Spent (min): Greater than 30 minutes Total Time Included: examination of the patient, discharge planning, medication reconciliation Tobacco Cessation at Discharge Smoking Status: Current Every Day Smoker FDA approved Prescription: nicotine replacement product (patch and gun, referred to quit line) Problem Qualifiers (1) Depression: Depression Type: major depressive disorder Major depression recurrence: recurrent Major depression episode severity: severe Psychotic features: without psychotic features (2) Nicotine dependence: Nicotine product type: cigarettes
[2017-05-17] MEDS: INSULIN DETEMIR FLEXPEN/FLEX TOUCH 100 UNITS/ML 3ML SC SCH (09:01)
[2017-05-17] MEDS: NICOTINE POLACRILEX 2 MG GUM MT PRN ×2 (09:03→12:45)
[2017-05-17] MEDS: INSULIN ASPART 100 UNITS/ML 3 ML PEN SC SCH ×2 (09:03→12:43)
[2017-05-17] MEDS ORDERED: EFFSR375 PO (10:30)
[2017-05-17] MEDS ORDERED: NRN100 PO (10:30)
[2017-05-17] MEDS ORDERED: NICO21DI4 EXT (10:31)
[2017-05-17] MEDS ORDERED: NCR2 MT (10:31)
[2017-05-17 11:35] VITALS: Ht 188 cm; Wt 128.0 kg
[2017-05-17] MEDS: TRAMADOL HCL 50 MG TAB PO PRN (13:35)
[2017-06-28] MEDS ORDERED: CYM30 PO (11:14)
[2017-06-28] MEDS ORDERED: VENL37.593 PO (11:14)
[2017-07-29] MEDS ORDERED: LPT40 PO (09:14)
[2017-07-29] MEDS ORDERED: ASPEC81 PO (09:14)
== END 2017-05-17 14:15 | disposition home or self-care (01) | DRG 881 ==
LOC: C.EDB 20:34 → C.MHU 05-13 03:23
PROVIDERS: ADMIT Psychiatry & Neurology Psychiatry; ATTEND Psychiatry & Neurology Psychiatry
DX: F32.9 Major depressive disorder, single episode, unspecified (principal); R45.851 Suicidal ideations; M54.5 Low back pain; F10.10 Alcohol abuse, uncomplicated; E11.43 Type 2 diabetes mellitus with diabetic autonomic (poly)neuropathy; I10 Essential (primary) hypertension; Z68.36 Body mass index [BMI] 36.0-36.9, adult; K58.9 Irritable bowel syndrome, unspecified; F17.210 Nicotine dependence, cigarettes, uncomplicated; E66.9 Obesity, unspecified; E78.5 Hyperlipidemia, unspecified

== ENCOUNTER 2017-06-14 11:18 | Emergency (ER) | payer OTHER ==
[~2017-06-14] VITALS: Ht 190.5 cm; Wt 134.9 kg
[~2017-06-14 11:18] MED LIST changes: +EFFSR375 PO; +NCR2 MT; +NICO21DI4 EXT; +NRN100 PO
[2017-06-14 11:26] VITALS: TEMP 36.8; Ht 190.5 cm; Wt 134.9 kg
[2017-06-14] MEDS ORDERED: CYCL5TAB PO (11:41)
[2017-06-14] MEDS ORDERED: GABA1CAP PO (11:43)
[2017-06-14] MEDS ORDERED: GABA800T2 PO (11:43)
--- NOTE | 2017-06-14 13:42 | DIAGNOSTIC IMAGING REPORT ---
ULTRASOUND VENOUS DOPPLER LWR EXT BILA CLINICAL HISTORY: Bilateral lower extremity pain COMPARISON STUDY: 03/30/2017 FINDINGS: Real-time and color flow Doppler imaging were performed. Flow was seen within the femoral, popliteal and calf veins with no intraluminal thrombus demonstrated. The saphenous vein is patent. IMPRESSION: No evidence of lower extremity DVT. Electronically signed by: Ortiz Driscoll M.D. 06/14/2017 1:41 PM Dictated Date/Time: 06/14/2017 1:40 PM
[2017-06-14 14:33] VITALS: BP 149/100; PULSE 95; O2SAT 97
--- NOTE | 2017-06-14 14:36 | EMERGENCY ROOM VISIT NOTE ---
History First contact with patient: 12:04 Chief Complaint: LEG PAIN,LEG INJURY Stated Complaint: BILATERAL LEG PAIN History of Present Illness The patient is a 41 year old male who presents to the Emergency Room with complaints of bilateral leg pain since 6 AM this morning. The patient reports that the pain awakened him. When he tried to get up to walk, he could not do so because of pain and weakness. The patient is currently on gabapentin, tramadol and muscle relaxers. He reports that he took these medications at 8 AM without any relief. He reports a history of chronic back pain, but does not feel that his leg pain is due to his back. The patient reports that he has difficulty explaining his pain, but describes it as occasional needlesticks. He also reports that his legs feel heavy. He denies any prior history of blood clots. He is not on any blood thinners. The patient was transported here via [email or web address] ambulance, and rates his discomfort a 9 out of 10. Review of Systems 10 system review was performed and was negative except for pertinent positives and negatives as indicated in history of present illness Past Medical/Surgical History Medical Problems: (1) Depression (2) DM type 2 (diabetes mellitus, type 2) (3) Gastroparesis (4) HTN (hypertension) (5) IBS (irritable bowel syndrome) (6) Intellectual disability (7) Mental retardation (8) Nicotine dependence (9) NSVT (nonsustained ventricular tachycardia) (10) Obesity (11) Obstructive sleep apnea (12) Sepsis Surgical Problems: (1) S/P left knee arthroscopy (2) S/P tonsillectomy Social History Problems: (1) Alcohol abuse Family History Cancer Diabetes mellitus MOTHER GRANDMOTHER UNCLE AUNT Gallbladder disease Heart disease Hypertension MOTHER FATHER Lung disease Social History Smoking Status: Current Every Day Smoker Alcohol Use: heavy Drug Use: none Marital Status: Housing Status: lives with family Occupation Status: employed, other Current/Historical Medications Scheduled Aripiprazole (Aripiprazole), 15 MG PO DAILY Cyclobenzaprine Hcl (Flexeril), Unknown Dose PO TID Gabapentin (Neurontin), 200 MG PO TID Gabapentin (Neurontin), 800 MG PO TID Insulin Aspart (Novolog Flexpen), 1 DOSE SC PC Insulin Glargine (Lantus Solostar), 35 UNITS SC BID Venlafaxine HCl (Venlafaxine HCl ER), 37.5 MG PO DAILY Venlafaxine Hcl (Effexor Extended Rel), 150 MG PO DAILY Scheduled PRN Nicotine Polacrilex (Nicorelief), 1 PIECE MT PRN PRN for nicotine dependence cravings Tramadol HCl (Tramadol HCl), 25 MG PO Q8H PRN for Pain Physical Exam Vital Signs Date Time Temp Pulse Resp B/P (MAP) Pulse Ox O2 Delivery O2 Flow Rate FiO2 06/14/17 13:00 90 16 129/55 93 Room Air 06/14/17 12:24 121 06/14/17 11:26 36.8 118 20 150/83 94 Room Air Physical Exam CONSTITUTIONAL: Healthy and well nourished. Alert and oriented X 3 with positive affect. Patient was sleeping upon initial presentation. HEENT: Normocephalic, atraumatic. Pupils equal, round and reactive. No scleral icterus or conjunctival injection/pallor. NECK: Full active range of motion without discomfort. RESPIRATORY: Clear to auscultation bilaterally with no wheezing, crackles, rhonchi or stridor. CARDIOVASCULAR: Regular rate and rhythm with no murmurs, rubs or gallops. GASTROINTESTINAL: Bowel sounds present in all quadrants. Soft and nontender to palpation. MUSCULOSKELETAL: Examination of bilateral lower extremity's does not show any obvious edema. No treat tibial pitting edema noted. The patient has generalized tenderness to palpation of the mid gastrocnemius muscles. No popliteal masses. There are no skin changes to the lower extremities. Pedal pulses are intact. Ankle plantar/dorsiflexion strength is 5 out of 5 and symmetric bilaterally. INTEGUMENTARY: No rash or other significant dermatologic conditions noted. NEUROLOGIC: Bilateral feet are grossly sensory intact. Medical Decision & Procedures ER Provider Diagnostic Interpretation: Bilateral lower extremity venous Dopplers is negative for deep vein thrombosis. Radiologist report is as follows: ULTRASOUND VENOUS DOPPLER LWR EXT BILA CLINICAL HISTORY: Bilateral lower extremity pain COMPARISON STUDY: 03/30/2017 FINDINGS: Real-time and color flow Doppler imaging were performed. Flow was seen within the femoral, popliteal and calf veins with no intraluminal thrombus demonstrated. The saphenous vein is patent. IMPRESSION: No evidence of lower extremity DVT. ED Course Patient history and physical exam were performed. Nurse's notes were reviewed. Vital signs were reviewed and normal. The patient is afebrile. The patient refused any analgesics on initial exam. Bilateral lower extremity venous Dopplers were normal. Upon further questioning, the patient reports that he has a history of neuropathy. He still does not feel that his pain is secondary to his back, although he has had pain radiating down both legs in the past. At this point, the patient was dispensed a walker as the patient reports that he is concerned that he may fall because of his pain. The patient was instructed to follow-up with his PCP to discuss further medication management. He is welcome to return to the emergency department for progressively worsening weakness, fevers, extremity redness or other concerns. The patient voiced understanding of all discharge instructions, and rated his pain a 4 out of 10 at the conclusion of my exam. Medical Decision Patient presents with complaint of bilateral lower extremity pain. Ultrasound today does not show any evidence for deep vein thrombosis. He has a known history of neuropathy and lumbar radiculitis. At this point, I do not suspect an emergent compressive neuropathy such as conus medullaris or cauda equina syndrome. I also do not suspect sepsis. The patient is afebrile. He has no skin changes to suggest cellulitis. The patient gives no history of trauma to warrant x-rays of the extremities. Medication Reconcilliation Current Medication List: was personally reviewed by me Blood Pressure Screening Patient's blood pressure: Normal blood pressure Impression Primary Impression: Bilateral leg pain Additional Impression: History of peripheral neuropathy Departure Information Referrals Velasquez Valencia M.D. (PCP) Patient Instructions My [facility] Problem Qualifiers
[2017-07-29] MEDS ORDERED: ASPEC81 PO (09:14)
[2017-07-29] MEDS ORDERED: LPT40 PO (09:14)
== END 2017-06-14 14:34 | disposition home or self-care (01) ==
LOC: EDBD 11:18 → C.EDC 11:21
DX: M79.604 Pain in right leg (principal); M79.605 Pain in left leg; E11.43 Type 2 diabetes mellitus with diabetic autonomic (poly)neuropathy; M54.9 Dorsalgia, unspecified; G89.29 Other chronic pain; F32.9 Major depressive disorder, single episode, unspecified; I10 Essential (primary) hypertension; K58.9 Irritable bowel syndrome, unspecified; F79 Unspecified intellectual disabilities; F17.200 Nicotine dependence, unspecified, uncomplicated; F10.10 Alcohol abuse, uncomplicated; I47.2 Ventricular tachycardia; E66.9 Obesity, unspecified; G47.33 Obstructive sleep apnea (adult) (pediatric); Z79.4 Long term (current) use of insulin; Z83.3 Family history of diabetes mellitus; Z82.49 Family history of ischemic heart disease and other diseases of the circulatory system

== ENCOUNTER 2017-06-16 01:28 | Emergency (ER) | payer OTHER ==
[~2017-06-16] VITALS: Ht 190.5 cm; Wt 132.1 kg
[2017-06-16 01:28] VITALS: TEMP 36.7; Ht 190.5 cm; Wt 132.1 kg
[~2017-06-16 01:28] MED LIST changes: +CYCL5TAB PO; +GABA1CAP PO; +GABA800T2 PO; -INSU3INJ3 SC; -NICO21DI4 EXT; -NRN100 PO; -NRN400 PO
--- NOTE | 2017-06-16 04:19 | EMERGENCY ROOM VISIT NOTE ---
History First contact with patient: :37 Chief Complaint: FALL Stated Complaint: FALL History of Present Illness The patient is a 41 year old male who presents to the Emergency Room via BLS for evaluation of a fall. The patient states that he was getting up from bed to use the bathroom when his legs gave out and he fell face first. He states that he struck face on the ground. He reports neck pain, pain in the center of his chest, left hip pain and left arm pain. The patient was able to walk afterward. He reports that his legs have been very weak recently. He denies any fevers or recent illness. Review of Systems A complete 10 point review of systems was reviewed with the patient with pertinent positives and negatives as per history of present illness. All else were negative. Past Medical/Surgical History Medical Problems: (1) Depression (2) DM type 2 (diabetes mellitus, type 2) (3) Gastroparesis (4) HTN (hypertension) (5) IBS (irritable bowel syndrome) (6) Intellectual disability (7) Mental retardation (8) Nicotine dependence (9) NSVT (nonsustained ventricular tachycardia) (10) Obesity (11) Obstructive sleep apnea (12) Sepsis Surgical Problems: (1) S/P left knee arthroscopy (2) S/P tonsillectomy Social History Problems: (1) Alcohol abuse Family History Cancer Diabetes mellitus MOTHER GRANDMOTHER UNCLE AUNT Gallbladder disease Heart disease Hypertension MOTHER FATHER Lung disease Social History Smoking Status: Current Every Day Smoker Alcohol Use: heavy Drug Use: none Marital Status: Housing Status: lives with family Occupation Status: employed, other Current/Historical Medications Scheduled Aripiprazole (Aripiprazole), 15 MG PO DAILY Cyclobenzaprine Hcl (Flexeril), Unknown Dose PO TID Gabapentin (Neurontin), 200 MG PO TID Gabapentin (Neurontin), 800 MG PO TID Insulin Aspart (Novolog Flexpen), 1 DOSE SC PC Insulin Glargine (Lantus Solostar), 35 UNITS SC BID Venlafaxine HCl (Venlafaxine HCl ER), 37.5 MG PO DAILY Venlafaxine Hcl (Effexor Extended Rel), 150 MG PO DAILY Scheduled PRN Nicotine Polacrilex (Nicorelief), 1 PIECE MT PRN PRN for nicotine dependence cravings Tramadol HCl (Tramadol HCl), 25 MG PO Q8H PRN for Pain Physical Exam Vital Signs Date Time Temp Pulse Resp B/P (MAP) Pulse Ox O2 Delivery O2 Flow Rate FiO2 06/16/17 04:25 105 18 119/64 94 Room Air 06/16/17 03:46 101 16 117/64 94 Room Air 06/16/17 01:28 36.7 116 18 125/81 96 Room Air Physical Exam VITALS: Vitals are noted on the nurse's note and reviewed by myself. Vital signs stable. GENERAL: This is a 41-year-old male, in no acute distress, nondiaphoretic, well- developed well-nourished. SKIN: The skin was without erythema, edema, or bruising. HEAD: Normocephalic atraumatic. EARS: External auditory canals clear, tympanic membranes pearly luque without erythema or effusion bilaterally. EYES: Pupils equal round and reactive to light and accommodation. Extraocular movements intact. MOUTH: Mucous membranes moist. NECK: Supple without nuchal rigidity. Cervical spine is mildly tender. Normal range of motion of the neck. HEART: Regular rate and rhythm without murmurs gallops or rubs. LUNGS: Clear to auscultation bilaterally without wheezes, rales or rhonchi. ABDOMEN: Soft, nontender to palpation. MUSCULOSKELETAL: There is tenderness to palpation of the left upper arm and lateral left hip. There are no deformities. Full range of motion throughout. Strength 5/5 throughout. NEURO: Patient was alert and oriented to person place and time. Normal sensation to light and sharp touch. Deep tendon reflexes 2+ throughout. No focal neurological deficits. Medical Decision & Procedures ER Provider Diagnostic Interpretation: CT HEAD: No acute intracranial abnormality identified. Minimal mucosal thickening in the posterior sphenoid sinuses. CT C SPINE: No acute traumatic abnormality identified. Straightening of the normal cervical lordosis may be related to patient positioning. Mild degenerative changes of the cervical spine, most prominent at C3-4. Radiologist: Joelle Sands MD LEFT HIP: No acute fractures or dislocations. LEFT HUMERUS: No acute fractures or dislocations. CHEST X-RAY: No bony abnormalities. No cardiopulmonary abnormalities. Medical Decision Differential diagnosis includes fracture, contusion, dislocation, among others. The patient is a 41-year-old male who presents today complaining of a fall. Multiple imaging studies were performed and interpreted by myself and statrad and were negative. The patient complains of subjective leg weakness. Review of previous visits shows that the patient has been complaining of leg weakness on previous visits. He has had an MRI of his lumbar spine as well as ultrasound of bilateral legs in the past few weeks. He was encouraged to use a walker at home and follow up with his PCP for evaluation. He was discharged home in good condition. Medication Reconcilliation Current Medication List: was personally reviewed by me Blood Pressure Screening Patient's blood pressure: Normal blood pressure Impression Primary Impression: Fall Additional Impressions: Contusion of multiple sites Leg weakness Departure Information Dispostion Home / Self-Care Condition GOOD Referrals Velasquez Valencia M.D. (PCP) Patient Instructions My [facility] Additional Instructions For pain control, you can use the following [id number] medicines (if >12 yo): - Regular strength (325mg/tab) Tylenol (acetaminophen) 2 tabs every 4-6 hours as needed. Do not exceed 12 tablets in a 24 hour period. Avoid taking more than 4 grams (4000 mg) of Tylenol per day. This includes any other sources of acetaminophen you may take on a regular basis. - Regular strength (200 mg/tab) Advil (ibuprofen) 1-2 tabs every 4-6 hours as needed. Do not exceed a dose of 3200 mg per day. Use your walker to aid with walking when you are able. Follow-up with your primary care provider in the morning for further evaluation. Problem Qualifiers
[2017-06-16 04:25] VITALS: BP 119/64; PULSE 105; O2SAT 94
--- NOTE | 2017-06-16 06:57 | DIAGNOSTIC IMAGING REPORT ---
CT OF THE HEAD WITHOUT CONTRAST CLINICAL HISTORY: Fall with head injury. COMPARISON STUDY: Head CT and MRI of the brain September 29, 2016. TECHNIQUE: Helical axial images of the head were obtained without IV contrast. Automated exposure control was utilized for the study. A dose lowering technique was utilized adhering to the principles of ALARA. FINDINGS: No acute intracranial hemorrhage, midline shift or mass effect is present. Ventricular system is normal. Basilar cisterns are patent. There are no extra-axial collections. Hameed-white differentiation is maintained. There is no calvarial fracture. IMPRESSION: 1. No acute intracranial findings. 2. No calvarial fracture. Electronically signed by: Serge Ghotra M.D. 06/16/2017 6:55 AM Dictated Date/Time: 06/16/2017 6:52 AM
--- NOTE | 2017-06-16 07:02 | DIAGNOSTIC IMAGING REPORT ---
CHEST ONE VIEW PORTABLE CLINICAL HISTORY: Chest pain following fall. COMPARISON STUDY: Chest CT March 30, 2017 and chest radiograph May 03, 2017. FINDINGS: Lung volumes are at the lower limits of normal which is unchanged. There is no pneumothorax or pleural effusion. No consolidation is present. Pulmonary vascularity is normal. Cardiomediastinal silhouette is normal. IMPRESSION: No acute cardiopulmonary findings. Electronically signed by: eSrge Ghotra M.D. 06/16/2017 7:01 AM Dictated Date/Time: 06/16/2017 7:00 AM
--- NOTE | 2017-06-16 07:03 | DIAGNOSTIC IMAGING REPORT ---
CERVICAL SPINE W/O CT DOSE: 1454.04 mGy.cm CLINICAL HISTORY: 41 years-old Male with fall, neck pain. Acute neck injury status post trauma. COMPARISON: CT head of same day. TECHNIQUE: Multiple axial CT images of the cervical spine were obtained without contrast. A dose lowering technique was utilized adhering to the principles of ALARA. FINDINGS: Vertebral body heights and alignment are normal. No fracture or subluxation is identified. Small posterior disc osteophyte complex formation is noted at C3-C4 and C5-C6. There is mild right lateral recess, mild central canal and moderate right foraminal narrowing at C3-C4. Mild right lateral recess narrowing is seen at C5-C6. Mild multilevel facet arthropathy is noted. There is straightening of the normal cervical lordosis. The cervical soft tissues appear unremarkable. The visualized lung apices appear clear. There is mild rightward bowing of the nasal septum. IMPRESSION: 1. No acute cervical spine fracture or subluxation. 2. Small posterior disc osteophyte complex formations are noted at C3-C4 and C5-C6 with associated central canal, lateral recess and foraminal narrowing as above. Mild multilevel facet arthropathy. 3. Straightening of the normal cervical lordosis may be secondary to muscle spasm or positioning. The above report was generated using voice recognition software. It may contain grammatical, syntax or spelling errors. Electronically signed by: Tanner Hilliard M.D. 06/16/2017 7:02 AM Dictated Date/Time: 06/16/2017 6:56 AM
--- NOTE | 2017-06-16 07:04 | DIAGNOSTIC IMAGING REPORT ---
LEFT HUMERUS MIN 2 VIEWS ROUTINE CLINICAL HISTORY: Left upper arm pain following fall. COMPARISON: Left elbow radiograph April 07, 2017. FINDINGS: Alignment of the left elbow and shoulder is anatomic. There is no acute fracture of the left humerus. There is moderate left AC joint arthrosis. IMPRESSION: No acute fracture of the left humerus. Electronically signed by: Serge Ghotra M.D. 06/16/2017 7:02 AM Dictated Date/Time: 06/16/2017 7:01 AM
--- NOTE | 2017-06-16 07:05 | DIAGNOSTIC IMAGING REPORT ---
LEFT HIP UNILATERAL 2 VIEWS CLINICAL HISTORY: Left hip pain following fall. COMPARISON: CT of the abdomen and pelvis August 06, 2016. FINDINGS: Alignment of the left hip is anatomic. No acute fracture is identified. Left hip joint space is preserved. There is mild osteophytosis of the left hip. Calcific density along the lesser trochanter is chronic and due to muscular insertion. IMPRESSION: No acute fracture or dislocation of the left hip. Electronically signed by: Serge Ghotra M.D. 06/16/2017 7:03 AM Dictated Date/Time: 06/16/2017 7:02 AM
[2017-07-29] MEDS ORDERED: LPT40 PO (09:14)
[2017-07-29] MEDS ORDERED: ASPEC81 PO (09:14)
== END 2017-06-16 04:30 | disposition home or self-care (01) ==
LOC: EDBD 01:28 → C.EDB 01:29
DX: T14.8 Other injury of unspecified body region (principal); W01.198A Fall on same level from slipping, tripping and stumbling with subsequent striking against other object, initial encounter; M62.81 Muscle weakness (generalized); F32.9 Major depressive disorder, single episode, unspecified; E11.43 Type 2 diabetes mellitus with diabetic autonomic (poly)neuropathy; I10 Essential (primary) hypertension; K58.9 Irritable bowel syndrome, unspecified; F79 Unspecified intellectual disabilities; F17.210 Nicotine dependence, cigarettes, uncomplicated; G47.33 Obstructive sleep apnea (adult) (pediatric); Z68.36 Body mass index [BMI] 36.0-36.9, adult; Z80.9 Family history of malignant neoplasm, unspecified; Z83.3 Family history of diabetes mellitus; Z82.49 Family history of ischemic heart disease and other diseases of the circulatory system; Z79.4 Long term (current) use of insulin; Z79.899 Other long term (current) drug therapy

== ENCOUNTER 2017-06-16 20:32 | Emergency (ER) | payer OTHER ==
[~2017-06-16] VITALS: Ht 190.5 cm; Wt 132.0 kg
[2017-06-16 20:36] VITALS: TEMP 36.8; Ht 190.5 cm; Wt 132.0 kg
[2017-06-16] MEDS ORDERED: SODIUM CHLORIDE 0.9% 1000ML 1,000 ML IV STA (22:29)
[2017-06-16] MEDS ORDERED: KETOROLAC TROMETHAMINE 30 MG/ML VIAL IV STA (22:29)
[2017-06-16 23:13] LABS: MANUAL MICROSCOPIC REQUIRED? NO; REVIEW REQ? NO; URINE APPEARANCE CLEAR (CLEAR); URINE BILIRUBIN NEG (NEG); URINE COLOR YELLOW; URINE NITRITE NEG (NEG); URINE PH 6.5 (4.5-7.5); URINE SPECIFIC GRAVITY 1.031 (1.000-1.030); UROBILINOGEN POS (NEG); ZZUR CULT IF INDIC CLEAN CATCH NO
[2017-06-17 00:12] LABS: BASO % 0.6 %; BASO ABS # 0.04 K/uL (0-0.2); COMPLETE YES; EOS % 4.8 %; IG% 0.7 %; LYMPH % 37.1 %; LYMPH ABS # 2.48 K/uL (1.2-3.4); MEAN CELL VOLUME 85.2 fL (80-100); MEAN PLATELET VOLUME 8.8 fL (7.4-10.4); NEUT % 46.8 %; PLATELET COUNT 207 K/uL (130-400); RED BLOOD COUNT 4.93 M/uL (4.7-6.1); WHITE BLOOD COUNT 6.69 K/uL (4.8-10.8)
[2017-06-17 00:17] LABS: ALKALINE PHOSPHATASE 88 U/L (45-117); ALT/SGPT 45 U/L (12-78); BLOOD UREA NITROGEN 12 mg/dl (7-18); BUN/CREATININE RATIO 13.8 (10-20); CARBON DIOXIDE 28 mmol/L (21-32); CHLORIDE 101 mmol/L (98-107); CREATININE 0.85 mg/dl (0.60-1.40); GLUCOSE 218 mg/dl (70-99); SODIUM 136 mmol/L (136-145)
[2017-06-17 00:24] VITALS: BP 154/97; PULSE 91; O2SAT 95
[2017-06-17 00:29] LABS: POTASSIUM 3.6 mmol/L (3.5-5.1)
[2017-06-17 00:34] LABS: AST/SGOT 17 U/L (15-37)
--- NOTE | 2017-06-17 01:32 | EMERGENCY ROOM VISIT NOTE ---
History Report prepared by Marianela: Macy Johnston Under the Supervision of: Dr. Jae Sanchez D.O. First contact with patient: 22:17 Chief Complaint: BILATERAL LEG WEAKNESS Stated Complaint: LEG/BACK PAIN History of Present Illness The patient is a 41 year old male who presents to the Emergency Room with complaints of persistent bilateral leg weakness which has been present for the past several months. The patient almost fell 2 days ago because of the leg weakness. He was able to lower himself to the ground, but he was unable to get up. Yesterday, he fell due to the weakness. He went to his PCP this morning and was talking about going to [employer] because he is worried that he will fall and injure himself. His legs have been weak for the past year. He has decreased sensation in his legs which is normal for him. He has had chronic back pain since he was 14 years old. He denies any increase in the weakness, numbness, or back pain. He denies any numbness in his groin, dysuria, or abdominal pain. He is having normal bowel movements and urination. He is currently in the process of applying for disability. He has not had any back surgeries before. Source of History: patient Onset: 2 days ago Position: leg (bilateral) Quality: other (weakness) Timing: other (persistent) Associated Symptoms: No abdominal pain, No urinary symptoms Note: Pt denies numbness in groin, change in bowel movement. Review of Systems See HPI for pertinent positives & negatives. A total of 10 systems reviewed and were otherwise negative. Past Medical & Surgical Medical Problems: (1) Depression (2) DM type 2 (diabetes mellitus, type 2) (3) Gastroparesis (4) HTN (hypertension) (5) IBS (irritable bowel syndrome) (6) Intellectual disability (7) Mental retardation (8) Nicotine dependence (9) NSVT (nonsustained ventricular tachycardia) (10) Obesity (11) Obstructive sleep apnea (12) Sepsis Surgical Problems: (1) S/P left knee arthroscopy (2) S/P tonsillectomy Social History Problems: (1) Alcohol abuse Family History Cancer Diabetes mellitus MOTHER GRANDMOTHER UNCLE AUNT Gallbladder disease Heart disease Hypertension MOTHER FATHER Lung disease Social History Smoking Status: Current Every Day Smoker Alcohol Use: heavy Drug Use: none Marital Status: Housing Status: lives with family Occupation Status: employed, other Current/Historical Medications Scheduled Aripiprazole (Aripiprazole), 15 MG PO DAILY Cyclobenzaprine Hcl (Flexeril), Unknown Dose PO TID Gabapentin (Neurontin), 200 MG PO TID Gabapentin (Neurontin), 800 MG PO TID Insulin Aspart (Novolog Flexpen), 1 DOSE SC PC Insulin Glargine (Lantus Solostar), 35 UNITS SC BID Venlafaxine HCl (Venlafaxine HCl ER), 37.5 MG PO DAILY Venlafaxine Hcl (Effexor Extended Rel), 150 MG PO DAILY Scheduled PRN Nicotine Polacrilex (Nicorelief), 1 PIECE MT PRN PRN for nicotine dependence cravings Tramadol HCl (Tramadol HCl), 25 MG PO Q8H PRN for Pain Allergies Coded Allergies: Cephalosporins (Verified Allergy, Unknown, AR, 06/16/17) Physical Exam Vital Signs Date Time Temp Pulse Resp B/P (MAP) Pulse Ox O2 Delivery O2 Flow Rate FiO2 06/17/17 00:24 91 20 154/97 95 Room Air 06/16/17 23:04 107 20 141/92 97 Room Air 06/16/17 20:36 36.8 117 22 161/85 96 Room Air Physical Exam GENERAL: sitting up in bed, disheveled, no acute distress, nontoxic EYE EXAM: normal conjunctiva, PERRL and EOM's intact OROPHARYNX: no exudate, no erythema, lips, buccal mucosa, and tongue normal and mucous membranes are moist NECK: supple, no nuchal rigidity, no adenopathy, non-tender LUNGS: Clear to auscultation. Normal chest wall mechanics HEART: no murmurs, S1 normal and S2 normal ABDOMEN: abdomen soft, non-tender, normo-active bowel sounds, no masses, no rebound or guarding. BACK: Back is symmetrical on inspection and there is no deformity, no midline tenderness, no CVA tenderness. SKIN: no rashes and no bruising UPPER EXTREMITIES: upper extremities are grossly normal. LOWER EXTREMITIES: Flexion, extension of the hip, knee, ankle, EHL 5/5 bilaterally, diminished sensation bilaterally, DP 2/4 bilaterally, unable to obtain patellar and Achilles reflex as patient does not relax, patient able to ambulate 2 steps on heels and toes. Post void 35 mls. NEURO EXAM: Normal sensorium, cranial nerves II-XII intact, normal speech, no weakness of arms, no weakness of legs. No drift. Finger to nose intact. Gross sensation intact. Medical Decision & Procedures Laboratory Results 06/16/17 23:40 Red Blood Count 4.93, Mean Corpuscular Volume 85.2, Mean Corpuscular Hemoglobin 29.0, Mean Corpuscular Hemoglobin Concent 34.0, Mean Platelet Volume 8.8, Neutrophils (%) (Auto) 46.8, Lymphocytes (%) (Auto) 37.1, Monocytes (%) (Auto) 10.0, Eosinophils (%) (Auto) 4.8, Basophils (%) (Auto) 0.6, Neutrophils # (Auto ) 3.13, Lymphocytes # (Auto) 2.48, Monocytes # (Auto) 0.67, Eosinophils # (Auto ) 0.32, Basophils # (Auto) 0.04 06/16/17 22:55 Test 06/16/17 22:55 06/16/17 23:00 06/16/17 23:40 Anion Gap 7.0 mmol/L (3-11) Est Creatinine Clear Calc Drug Dose 164.0 ml/min Estimated GFR () 123.7 Estimated GFR (Non- 106.7 BUN/Creatinine Ratio 13.8 (10-20) Calcium Level 9.0 mg/dl (8.5-10.1) Total Bilirubin 0.3 mg/dl (0.2-1) Direct Bilirubin mg/dl (0-0.2) Aspartate Amino Transf (AST/SGOT) U/L (15-37) Alanine Aminotransferase (ALT/SGPT) 45 U/L (12-78) Alkaline Phosphatase 88 U/L (45-117) Total Protein 7.3 gm/dl (6.4-8.2) Albumin 3.4 gm/dl (3.4-5.0) Lipase 111 U/L (73-393) Urine Color YELLOW Urine Appearance CLEAR (CLEAR) Urine pH 6.5 (4.5-7.5) Urine Specific [place] 1.031 (1.000-1.030) Urine Protein NEG (NEG) Urine Glucose (UA) 3+ (NEG) Urine Ketones NEG (NEG) Urine Occult Blood NEG (NEG) Urine Nitrite NEG (NEG) Urine Bilirubin NEG (NEG) Urine Urobilinogen POS (NEG) Urine Leukocyte Esterase NEG (NEG) Urine WBC (Auto) 1-5 /hpf (0-5) Urine RBC (Auto) 0-4 /hpf (0-4) Urine Hyaline Casts (Auto) 0 /lpf (0-5) Urine Epithelial Cells (Auto) 10-20 /lpf (0-5) Urine Bacteria (Auto) NEG (NEG) White Blood Count 6.69 K/uL (4.8-10.8) Red Blood Count 4.93 M/uL (4.7-6.1) Hemoglobin 14.3 g/dL (14.0-18.0) Hematocrit 42.0 % (42-52) Mean Corpuscular Volume 85.2 fL (80-100) Mean Corpuscular Hemoglobin 29.0 pg (25-34) Mean Corpuscular Hemoglobin Concent 34.0 g/dl (32-36) Platelet Count 207 K/uL (130-400) Mean Platelet Volume 8.8 fL (7.4-10.4) Neutrophils (%) (Auto) 46.8 % Lymphocytes (%) (Auto) 37.1 % Monocytes (%) (Auto) 10.0 % Eosinophils (%) (Auto) 4.8 % Basophils (%) (Auto) 0.6 % Neutrophils # (Auto) 3.13 K/uL (1.4-6.5) Lymphocytes # (Auto) 2.48 K/uL (1.2-3.4) Monocytes # (Auto) 0.67 K/uL (0.11-0.59) Eosinophils # (Auto) 0.32 K/uL (0-0.5) Basophils # (Auto) 0.04 K/uL (0-0.2) RDW Standard Deviation 41.9 fL (36.4-46.3) RDW Coefficient of Variation 13.6 % (11.5-14.5) Immature Granulocyte % (Auto) 0.7 % Immature Granulocyte # (Auto) 0.05 K/uL (0.00-0.02) Laboratory results per my review. Medications Administered Medications (Trade) Dose Ordered Sig/Mario Alberto Route Start Time Stop Time Status Last Admin Dose Admin Sodium Chloride 1,000 ml @ 999 mls/hr Q1H1M STAT IV 06/16/17 22:29 06/16/17 23:29 DC 06/16/17 23:13 999 MLS/HR Ketorolac Tromethamine (Toradol Inj) 30 mg NOW STAT IV 06/16/17 22:29 06/16/17 22:30 DC 06/16/17 23:14 30 MG ED Course ED COURSE: Vital signs were reviewed and showed tachycardia The patients medical record was reviewed The above diagnostic studies were performed and reviewed. ED treatments and interventions as stated above. 2218: The patient was evaluated in room A4B. A complete history and physical examination was performed. 2229: Toradol Inj 30 mg IV, NSS 1000 ml @ 999 mls/hr IV. 2255: I reevaluated the patient. I updated him on the plan. 0025: Upon reevaluation, the patient is resting comfortably.I discussed my findings with the patient and he understands and agrees with the treatment plan. Based on the patients age, coexisting illnesses, exam and lab findings the decision to treat as an outpatient was made. The patient remained stable while under my care. The patient appeared well at the time of discharge. Medical Decision Differential diagnoses includes but is not limited to lumbar radiculopathy, muscle strain, facture, cauda equina, mass, and disc herniation. Patient is a 41-year-old male that presents to the ER for bilateral leg weakness which has been present for the past several years. He notes no new weakness, numbness or new back pain. He is otherwise neurologically at his baseline. There is no focal deficit on exam. No saddle paresthesias. No signs of cauda equina. Postvoid is 35 mL's. Able to ambulate on my exam. He is supposed to use a walker but does not in his trailer. CBC BMP, LFTs, bilirubin and UA was negative. Patient was sent in to be evaluated for rehabilitation. As he is able to ambulate and move around within the bed I felt it was reasonable to discharge him following care management discussing with the patient and helping set up outpatient rehabilitation evaluations. Patient was up to the bedside and discharge follow-up with PCP. Discussed with Pt concerning signs and symptoms to watch out for. Pt was instructed to follow up with their PCP and discussed with the patient their option to return to the ED at anytime for persistent or worsening symptoms. The appropriate anticipatory guidance and out-patient management, including indications for return to the emergency department, were explained at length to the patient and understood. Medication Reconcilliation Current Medication List: was personally reviewed by me Blood Pressure Screening Patient's blood pressure: Elevated blood pressure Blood pressure disposition: Elevated BP felt to be situational Impression Primary Impression: Leg weakness Scribe Attestation The scribe's documentation has been prepared under my direction and personally reviewed by me in its entirety. I confirm that the note above accurately reflects all work, treatment, procedures, and medical decision making performed by me. Departure Information Dispostion Home / Self-Care Referrals Velasquez Valencia M.D. (PCP) Forms HOME CARE DOCUMENTATION FORM, IMPORTANT VISIT INFORMATION Patient Instructions ED Weakness ELOISA, Debby [facility] Additional Instructions Please follow up with your primary care doctor or if you are a student, [facility] with in the next 24 hours. Any worsening of your symptoms, please return to the ED immediately. This includes any fevers greater than 100.4, worsening pain, persistent falls, new numbness or weakness in the leg, unable to urinate, unable to move her bowels, chest pain, shortness breath , persistent nausea, vomiting, unable to eat or drink, or any other concerning signs or symptoms from your standpoint. Please call [facility] tomorrow and care management will contact them as well in order to facilitate an evaluation. Problem Qualifiers Primary Impression: Leg weakness Laterality: bilateral Qualified Codes: R29.898 - Other symptoms and signs involving the musculoskeletal system
[2017-07-29] MEDS ORDERED: LPT40 PO (09:14)
[2017-07-29] MEDS ORDERED: ASPEC81 PO (09:14)
== END 2017-06-17 00:37 | disposition home or self-care (01) ==
LOC: C.EDB 20:33 → C.EDA 06-17 00:37
DX: M62.81 Muscle weakness (generalized) (principal); I10 Essential (primary) hypertension; E11.9 Type 2 diabetes mellitus without complications; K31.84 Gastroparesis; F32.9 Major depressive disorder, single episode, unspecified; K58.9 Irritable bowel syndrome, unspecified; G47.33 Obstructive sleep apnea (adult) (pediatric); F79 Unspecified intellectual disabilities; F17.200 Nicotine dependence, unspecified, uncomplicated; Z86.19 Personal history of other infectious and parasitic diseases; Z96.659 Presence of unspecified artificial knee joint; Z98.890 Other specified postprocedural states; Z79.4 Long term (current) use of insulin; Z79.899 Other long term (current) drug therapy; Z88.8 Allergy status to other drugs, medicaments and biological substances; Z80.9 Family history of malignant neoplasm, unspecified; Z83.3 Family history of diabetes mellitus; Z83.79 Family history of other diseases of the digestive system; Z82.49 Family history of ischemic heart disease and other diseases of the circulatory system

== ENCOUNTER 2017-06-18 19:03 | Inpatient (IN) | payer OTHER ==
[~2017-06-18] VITALS: Ht 190.5 cm; Wt 132.5 kg
[2017-06-18] MEDS ORDERED: KETOROLAC TROMETHAMINE 60 MG/2 ML VIAL IM STA (19:20)
[2017-06-18] MEDS ORDERED: TRAMADOL HCL 50 MG TAB PO STA (19:20)
--- NOTE | 2017-06-18 20:20 | DIAGNOSTIC IMAGING REPORT ---
LUMBAR SPINE 5 VIEWS HISTORY: Fall with lower back/pelvic pain COMPARISON: Lumbar spine 05/09/2017. FINDINGS: There is no fracture. No subluxation. S1 is demonstrated to be a transitional vertebra. Mild disc space narrowing at L4-L5 and L5-S1 with small plate osteophytes. Moderate facet degenerative changes within the lower lumbar spine. This remains unchanged. Mild anterior wedging at L1 remains unchanged. IMPRESSION: No acute fracture or subluxation within the lumbar spine. Degenerative changes as described above. Electronically signed by: Vijay Wadsworth M.D. 06/18/2017 8:18 PM Dictated Date/Time: 06/18/2017 8:16 PM
--- NOTE | 2017-06-18 20:21 | DIAGNOSTIC IMAGING REPORT ---
PELVIS ONE VIEW HISTORY: Fall with lower back/pelvic pain COMPARISON: Pelvis 08/06/2016. FINDINGS: There is no fracture or dislocation. Soft tissues are unremarkable. No radiopaque foreign bodies. Mild osteoarthritis within the bilateral hips, unchanged. The sacrum is intact. IMPRESSION: No fractures. Electronically signed by: Vijay Wadsworth M.D. 06/18/2017 8:20 PM Dictated Date/Time: 06/18/2017 8:18 PM
[2017-06-18 20:57] LABS: BASO % 0.4 %; BASO ABS # 0.04 K/uL (0-0.2); COMPLETE YES; EOS % 3.7 %; HEMATOCRIT 44.1 % (42-52); IG% 0.7 %; LYMPH % 34.9 %; LYMPH ABS # 3.18 K/uL (1.2-3.4); MEAN CELL VOLUME 86.1 fL (80-100); MEAN CORPUSCULAR HEMOGLOBIN 28.9 pg (25-34); MEAN CORPUSCULAR HGB CONC 33.6 g/dl (32-36); MEAN PLATELET VOLUME 8.9 fL (7.4-10.4); MONO % 7.2 %; NEUT % 53.1 %; PLATELET COUNT 222 K/uL (130-400); RED BLOOD COUNT 5.12 M/uL (4.7-6.1); WHITE BLOOD COUNT 9.11 K/uL (4.8-10.8)
[2017-06-18 21:04] LABS: URINE APPEARANCE CLEAR (CLEAR); URINE BILIRUBIN NEG (NEG); URINE COLOR YELLOW; URINE NITRITE NEG (NEG); URINE PH 5.5 (4.5-7.5); URINE SPECIFIC GRAVITY 1.044 (1.000-1.030); UROBILINOGEN NEG (NEG)
[2017-06-18 21:07] LABS: MANUAL MICROSCOPIC REQUIRED? NO; REVIEW REQ? NO
[2017-06-18 21:21] LABS: BUN/CREATININE RATIO 15.4 (10-20); CALCIUM 9.3 mg/dl (8.5-10.1); CREATININE 0.87 mg/dl (0.60-1.40); POTASSIUM 3.9 mmol/L (3.5-5.1)
[2017-06-18 21:32] LABS: ALB/GLOB RATIO 0.9 (0.9-2); THYROID STIMULATING HORMONE 0.816 uIu/ml (0.300-4.500)
[2017-06-18 21:32] LABS: BENZODIAZEPINE, URINE NEG (NEG); COCAINE,URINE NEG (NEG); PHENCYCLIDINE, URINE NEG (NEG)
[2017-06-18] MEDS ORDERED: NURSING VERBAL MED ORDER ONE (22:30)
[2017-06-18] MEDS ORDERED: LANTUS PER UNIT CHARGE SC STA (22:42)
[2017-06-18] MEDS ORDERED: SODIUM CHLORIDE 0.65% NA SOLN 45 ML (OCEAN) PRN (22:45)
[2017-06-18] MEDS ORDERED: BISMUTH SUBSALICYLATE PER ML OMNICELL CHARGE PO PRN (22:45)
[2017-06-18] MEDS ORDERED: ALUMINUM/MAGNESIUM SUSP 30 ML UDC PO PRN (22:45)
[2017-06-18] MEDS ORDERED: hydrOXYzine HCL 25 MG TAB PO PRN ×2 (22:45)
[2017-06-18] MEDS ORDERED: MAGNESIUM HYDROXIDE SUSP 30 ML UDC PO PRN (22:45)
[2017-06-18 23:07] VITALS: O2SAT 98
--- NOTE | 2017-06-18 23:27 | EMERGENCY ROOM VISIT NOTE ---
History First contact with patient: 19:12 Chief Complaint: FALL Stated Complaint: FALL/WM PAIN History of Present Illness The patient is a 41 year old male who presents to the Emergency Room with complaints of lower back and pelvic pain after he fell getting out of his bed approximately 30-45 minutes prior to arrival. The patient reports that he has chronic lower back pain and lower extremity weakness. He is currently being managed by Dr. Valencia who suggested that he have inpatient rehabilitation treatment. The patient reports that he has a [facility] evaluation next Wednesday. When asked if he has been evaluated by a neurologist, he reports that Dr. Valencia was considering that as well. Since the patient's last emergency department visit, he denies any saddle anesthesias, bladder/bowel incontinence or significant worsening weakness. The patient has not taken any medicine for his pain prior to arrival via BLS ambulance, and rates his discomfort a 10 out of 10. Review of Systems 10 system review was performed and was negative except for pertinent positives and negatives as indicated in history of present illness Past Medical/Surgical History Medical Problems: (1) Depression (2) DM type 2 (diabetes mellitus, type 2) (3) Gastroparesis (4) HTN (hypertension) (5) IBS (irritable bowel syndrome) (6) Intellectual disability (7) Mental retardation (8) Nicotine dependence (9) NSVT (nonsustained ventricular tachycardia) (10) Obesity (11) Obstructive sleep apnea (12) Sepsis Surgical Problems: (1) S/P left knee arthroscopy (2) S/P tonsillectomy Social History Problems: (1) Alcohol abuse Family History Cancer Diabetes mellitus MOTHER GRANDMOTHER UNCLE AUNT Gallbladder disease Heart disease Hypertension MOTHER FATHER Lung disease Social History Smoking Status: Current Every Day Smoker Alcohol Use: heavy Drug Use: none Marital Status: Housing Status: lives with family Occupation Status: employed, other Current/Historical Medications Scheduled Aripiprazole (Aripiprazole), 15 MG PO DAILY Cyclobenzaprine Hcl (Flexeril), Unknown Dose PO TID Gabapentin (Neurontin), 200 MG PO TID Gabapentin (Neurontin), 800 MG PO TID Insulin Aspart (Novolog Flexpen), 1 DOSE SC PC Insulin Glargine (Lantus Solostar), 35 UNITS SC BID Venlafaxine HCl (Venlafaxine HCl ER), 37.5 MG PO DAILY Venlafaxine Hcl (Effexor Extended Rel), 150 MG PO DAILY Scheduled PRN Nicotine Polacrilex (Nicorelief), 1 PIECE MT PRN PRN for nicotine dependence cravings Tramadol HCl (Tramadol HCl), 25 MG PO Q8H PRN for Pain Physical Exam Vital Signs Date Time Temp Pulse Resp B/P (MAP) Pulse Ox O2 Delivery O2 Flow Rate FiO2 06/18/17 21:36 36.9 101 18 139/77 96 Room Air 06/18/17 20:52 105 18 141/75 96 Room Air 06/18/17 19:10 36.6 122 18 149/72 95 Room Air Physical Exam CONSTITUTIONAL: Healthy and well nourished. Alert and oriented X 3 with positive affect. Patient does not appear in any significant distress on exam. HEENT: Normocephalic, atraumatic. Pupils equal, round and reactive. No subconjunctival hemorrhage, epistaxis, hemotympanum, raccoon's eyes or Barros sign. NECK: Full active range of motion without discomfort. MUSCULOSKELETAL: Examination shows diffuse tenderness to palpation through the lower lumbar spine and SI joints. Pelvis stable with rock. While diverting the patient's attention, he has a negative logroll test and negative straight leg raise bilaterally. Ankle plantar/dorsiflexion strength is 4 out of 5 and symmetric bilaterally. Pedal pulses are intact. INTEGUMENTARY: No rash or other significant dermatologic conditions noted. NEUROLOGIC: Lower extremity deep tendon reflexes are 2+ and symmetric bilaterally. Bilateral feet are grossly sensory intact, although the patient reports decreased sensation. Medical Decision & Procedures ER Provider Diagnostic Interpretation: My interpretation of lumbar spine and pelvis x-rays does not show any obvious fractures, spondylolisthesis or other acute findings except for mild chronic changes. Radiologist reports were also reviewed. Laboratory Results 06/18/17 20:46 Red Blood Count 5.12, Mean Corpuscular Volume 86.1, Mean Corpuscular Hemoglobin 28.9, Mean Corpuscular Hemoglobin Concent 33.6, Mean Platelet Volume 8.9, Neutrophils (%) (Auto) 53.1, Lymphocytes (%) (Auto) 34.9, Monocytes (%) (Auto) 7.2, Eosinophils (%) (Auto) 3.7, Basophils (%) (Auto) 0.4, Neutrophils # (Auto) 4.83, Lymphocytes # (Auto) 3.18, Monocytes # (Auto) 0.66, Eosinophils # (Auto) 0.34, Basophils # (Auto) 0.04 06/18/17 20:46 Test 06/18/17 20:43 06/18/17 20:46 Urine Color YELLOW Urine Appearance CLEAR (CLEAR) Urine pH 5.5 (4.5-7.5) Urine Specific [place] 1.044 (1.000-1.030) Urine Protein NEG (NEG) Urine Glucose (UA) 3+ (NEG) Urine Ketones NEG (NEG) Urine Occult Blood NEG (NEG) Urine Nitrite NEG (NEG) Urine Bilirubin NEG (NEG) Urine Urobilinogen NEG (NEG) Urine Leukocyte Esterase NEG (NEG) Urine Opiates Screen NEG (NEG) Urine Methadone, Qualitative NEG (NEG) Urine Barbiturates NEG (NEG) Urine Phencyclidine (PCP) Level NEG (NEG) Ur Amphetamine/Methamphetamine NEG (NEG) MDMA (Ecstasy) Screen NEG (NEG) Urine Benzodiazepines Screen NEG (NEG) Urine Cocaine Metabolite NEG (NEG) Urine Marijuana (THC) NEG (NEG) White Blood Count 9.11 K/uL (4.8-10.8) Red Blood Count 5.12 M/uL (4.7-6.1) Hemoglobin 14.8 g/dL (14.0-18.0) Hematocrit 44.1 % (42-52) Mean Corpuscular Volume 86.1 fL (80-100) Mean Corpuscular Hemoglobin 28.9 pg (25-34) Mean Corpuscular Hemoglobin Concent 33.6 g/dl (32-36) Platelet Count 222 K/uL (130-400) Mean Platelet Volume 8.9 fL (7.4-10.4) Neutrophils (%) (Auto) 53.1 % Lymphocytes (%) (Auto) 34.9 % Monocytes (%) (Auto) 7.2 % Eosinophils (%) (Auto) 3.7 % Basophils (%) (Auto) 0.4 % Neutrophils # (Auto) 4.83 K/uL (1.4-6.5) Lymphocytes # (Auto) 3.18 K/uL (1.2-3.4) Monocytes # (Auto) 0.66 K/uL (0.11-0.59) Eosinophils # (Auto) 0.34 K/uL (0-0.5) Basophils # (Auto) 0.04 K/uL (0-0.2) RDW Standard Deviation 42.5 fL (36.4-46.3) RDW Coefficient of Variation 13.4 % (11.5-14.5) Immature Granulocyte % (Auto) 0.7 % Immature Granulocyte # (Auto) 0.06 K/uL (0.00-0.02) Anion Gap 8.0 mmol/L (3-11) Est Creatinine Clear Calc Drug Dose 160.5 ml/min Estimated GFR () 122.5 Estimated GFR (Non- 105.7 BUN/Creatinine Ratio 15.4 (10-20) Calcium Level 9.3 mg/dl (8.5-10.1) Total Bilirubin 0.3 mg/dl (0.2-1) Aspartate Amino Transf (AST/SGOT) 16 U/L (15-37) Alanine Aminotransferase (ALT/SGPT) 38 U/L (12-78) Alkaline Phosphatase 89 U/L (45-117) Total Protein 7.2 gm/dl (6.4-8.2) Albumin 3.4 gm/dl (3.4-5.0) Globulin 3.8 gm/dl (2.5-4.0) Albumin/Globulin Ratio 0.9 (0.9-2) Thyroid Stimulating Hormone (TSH) 0.816 uIu/ml (0.300-4.500) Ethyl Alcohol mg/dL < 3.0 mg/dl (0-3) The above labs were reviewed. Glucose is elevated at 255. Otherwise remaining labs are grossly normal. Medications Administered Medications (Trade) Dose Ordered Sig/Mario Alberto Route Start Time Stop Time Status Last Admin Dose Admin Ketorolac Tromethamine (Toradol Inj) 60 mg NOW STAT IM 06/18/17 19:20 06/18/17 19:23 DC 06/18/17 19:30 60 MG Tramadol HCl (Ultram Tab) 50 mg NOW STAT PO 06/18/17 19:20 06/18/17 19:23 DC 06/18/17 19:30 50 MG ED Course Patient history and physical exam were performed. Nurse's notes were reviewed. Vital signs were reviewed and were normal. I also reviewed prior electronic medical records, showing that the patient has been here frequently over the past several months. The patient has had extensive workup for his back, including a normal MRI. The patient was last admitted to our facility after expressing suicidal thoughts because of his chronic back pain. The patient was administered Toradol 60 mg IM and Ultram 50 mg orally. X-rays of the lumbar spine and pelvis were normal. Findings were discussed with the patient. The patient then requested a psychiatric consultation "because I can't handle this weakness". I explained to the patient that a psychiatric consult is not what he needs for weakness, but rather physical rehabilitation as suggested by his PCP. The patient then reported that he is afraid that if he goes home he might kill himself. At this point, labs were drawn, and the patient was reevaluated by our psychiatric team. His glucose is elevated, and the patient was administered Lantus 35 units subcutaneously (his usual evening dose) as he has not taken his insulin today. Based on a psychiatric evaluation, it was felt that the patient was at risk for himself, and will be admitted voluntarily for further management. Medical Decision Impression Primary Impression: Suicidal thoughts Additional Impressions: Acute exacerbation of chronic low back pain Fall in home Leg weakness Departure Information Referrals Velasquez Valencia M.D. (PCP) Patient Instructions My [facility] Problem Qualifiers Additional Impressions: Fall in home Encounter type: initial encounter Qualified Codes: W19.XXXA - Unspecified fall, initial encounter; Y92.099 - Unspecified place in other non-institutional residence as the place of occurrence of the external cause Leg weakness Laterality: bilateral Qualified Codes: R29.898 - Other symptoms and signs involving the musculoskeletal system
[2017-06-19 00:02] VITALS: BP 143/84; PULSE 98; TEMP 36.9; Ht 190.5 cm; Wt 132.5 kg
[2017-06-19 07:02] VITALS: BP_SYST 135; BP_SYST 148; BP_DIAS 84; BP_DIAS 93; PULSE 92; PULSE 97; TEMP 36.5
[2017-06-19] MEDS ORDERED: TRAMADOL HCL 50 MG TAB PO PRN (08:30)
[2017-06-19] MEDS ORDERED: GLUCAGON FOR INJ 1 MG VIAL SQ PRN (08:30)
[2017-06-19] MEDS ORDERED: DEXTROSE 50% 50 ML SYR IV PRN (08:45)
[2017-06-19] MEDS ORDERED: GLUCOSE 40% GEL 15 GM TUBE PO PRN (08:45)
[2017-06-19] MEDS ORDERED: GLUCOSE 10 TABS/TUBE PO PRN (08:45)
[2017-06-19] MEDS ORDERED: ARIPIprazole TAB 15 MG TAB PO SCH (09:00)
[2017-06-19] MEDS: GABAPENTIN 100 MG CAP PO SCH ×3 (09:35→21:59)
[2017-06-19] MEDS: VENLAFAXINE HCL XR 37.5 MG CAPXR PO SCH (09:36)
[2017-06-19] MEDS: VENLAFAXINE HCL XR 150 MG CAPXR PO SCH (09:36)
[2017-06-19] MEDS: GABAPENTIN 800 MG TAB PO SCH ×3 (09:37→21:59)
[2017-06-19] MEDS ORDERED: PHARMACY GLYCEMIC MGMT CONSULT PRN (09:46)
[2017-06-19] MEDS: NICOTINE POLACRILEX 2 MG GUM MT PRN ×2 (10:39→13:27)
--- NOTE | 2017-06-19 10:49 | Psychiatric History & Physical ---
Psychiatric History & Physical Date of Service: Jun 19, 2017. Identifying Data Bry Akhtar is a 41-year-old male who currently lives in [place] with family , has a history of recurrent depression and chronic pain who presented to the ER with pain and endorsed SI. He was admitted on a 201 voluntary commitment. Chief Complaint "I wouldn't have to be here if doctors would just do their job". History of Present Illness Patient was last admitted to in April. Since that time he has been seen in the ED several times for falls. He has been compliant with outpatient appointments but is no longer receiving med assistance from [facility] as "mutual" agreement that it was duplication of services with [facility]. He describes not being able to feel his feet much of the time due to his neuropathy and when he stands to move about his camper his feet just "give out" from under him. He denies feeling dizzy and generally has borderline BP. He insists that he only takes Flexeril at night but is known to drink beer. He states that the falls never occur at [employer] programming and notes that he felt "I just couldn't manage" until his PT/OT assessment on 06/22. In the context of being told he wasn't being admitted medically he developed thoughts to OD on pills. He is frustrated with his medical condition but denies vegetative symptoms. He maintains that he is not driving and that his sister was planning on taking him to his appt. He states his primary stressor is pain, but also in 06/2016 from leukemia, and he has financial strain, is unemployed, and is trying to get disability. Past Psychiatric History Current OP Treatment: psychiatrist (Dr. Vargas at [facility]), therapist (Prasanth), family caseworker (Dave) Prior Psych Hospitalizations: [facility], other Access to a Gun: No Suicide Attempts: No (But had a bottle of pills in his hand in March and was thinking of overdosing on them.) Past Medication Trials mirtazapine lithium - toxicity quetiapine others he cannot recall Additional Notes Diagnosed with recurrent depression Past Medical/Surgical History (1) NSVT (nonsustained ventricular tachycardia) (2) Chronic low back pain (3) HTN (hypertension) (4) DM type 2 (diabetes mellitus, type 2) (5) IBS (irritable bowel syndrome) Allergies Allergies: Coded Allergies: Cephalosporins (Verified Allergy, Unknown, AR, 05/12/17) Home Medications Reported Home Medications Medications Dose Route/Sig Max Daily Dose Days Date Category Dose Instructions Neurontin (Gabapentin) 800 Mg Tab 800 Mg PO TID 06/14/17 Reported TOTAL DOSE 1000MG TID Neurontin (Gabapentin) 100 Mg Cap 200 Mg PO TID 06/14/17 Reported TOTAL DOSE 1000MG TID Flexeril (Cyclobenzaprine Hcl) Unknown Strength Tab Unknown Dose PO TID 06/14/17 Reported PRN Lantus Solostar (Insulin Glargine) 100 Unit/Ml Inj 35 Units SC BID 06/14/17 Reported Nicorelief (Nicotine Polacrilex) 1 Piece Gum 1 Piece MT PRN PRN 14 05/17/17 Rx Venlafaxine HCl ER (Venlafaxine HCl) 37.5 Mg Capcr 37.5 Mg PO DAILY 30 05/17/17 Rx Tramadol HCl 50 Mg Tab 25 Mg PO Q8H PRN 04/20/17 Rx Novolog Flexpen (Insulin Aspart) 100 Units/Ml Inj 1 Dose SC PC 04/18/17 Reported PER SLIDING SCALE Aripiprazole 15 Mg Tab 15 Mg PO DAILY 04/18/17 Reported Effexor Extended Rel (Venlafaxine Hcl) 150 Mg Capcr 150 Mg PO DAILY 04/18/17 Reported Family History Cancer Diabetes mellitus MOTHER GRANDMOTHER UNCLE AUNT Gallbladder disease Heart disease Hypertension MOTHER FATHER Lung disease History of Suicide: No History of Substance Abuse: Yes (paternal uncle alcoholic) Psychiatric History: Yes (Brother has unclear "psych problems," and uncle "thinks he's a different person each week, he's in a state institution," nephew with ADHD "and his mom thinks he's bipolar.") Alcohol Use Alcohol Use In Past 12 Months: Yes--12 beers per week Smoking Use Smoking Status: Current Every Day Smoker 2 PPD Substance History Denies illicit drug use in years. Remote history of cannabis at age 25. Used PCP or marijuana at age 4 when older cousin gave it to him. Personal History Lives in: [facility] with multiple family members Childhood: 2 younger siblings Education: graduated from high school (has some credits from [employer]) Work History: Unemployed and applied for disability (appealing after 1 denial). 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 Last worked in 2015 and says he is on medical leave. Relationship History: ( in 06/2016) Children: none Spiritual Affiliation: [employer] Legal History: none Psychological Trauma History: Significant Loss, Other (Denies abuse.) Review of Systems 10 systems reviewed, positive for back and knee pain, others negative except as stated above. Examination Physical Examination A physical exam was performed in the ER prior to admission to the unit by JAMIE Rodriguez. I accept that physical as correct/medical clearance for the inpatient physical exam. Vital Signs Vital Signs Past 12 Hours Date Time Temp Pulse Resp B/P (MAP) Pulse Ox O2 Delivery O2 Flow Rate FiO2 06/19/17 07:02 36.5 92 16 135/84 97 148/93 06/19/17 00:02 36.9 98 18 143/84 06/18/17 23:07 96 20 138/74 98 Laboratory Results Last 24 Hours Test 06/18/17 20:43 06/18/17 20:46 06/19/17 08:50 Urine Color YELLOW Urine Appearance CLEAR Urine pH 5.5 Urine Specific [place] 1.044 Urine Protein NEG Urine Glucose (UA) 3+ Urine Ketones NEG Urine Occult Blood NEG Urine Nitrite NEG Urine Bilirubin NEG Urine Urobilinogen NEG Urine Leukocyte Esterase NEG Urine Opiates Screen NEG Urine Methadone, Qualitative NEG Urine Barbiturates NEG Urine Phencyclidine (PCP) Level NEG Ur Amphetamine/Methamphetamine NEG MDMA (Ecstasy) Screen NEG Urine Benzodiazepines Screen NEG Urine Cocaine Metabolite NEG Urine Marijuana (THC) NEG White Blood Count 9.11 K/uL Red Blood Count 5.12 M/uL Hemoglobin 14.8 g/dL Hematocrit 44.1 % Mean Corpuscular Volume 86.1 fL Mean Corpuscular Hemoglobin 28.9 pg Mean Corpuscular Hemoglobin Concent 33.6 g/dl Platelet Count 222 K/uL Mean Platelet Volume 8.9 fL Neutrophils (%) (Auto) 53.1 % Lymphocytes (%) (Auto) 34.9 % Monocytes (%) (Auto) 7.2 % Eosinophils (%) (Auto) 3.7 % Basophils (%) (Auto) 0.4 % Neutrophils # (Auto) 4.83 K/uL Lymphocytes # (Auto) 3.18 K/uL Monocytes # (Auto) 0.66 K/uL Eosinophils # (Auto) 0.34 K/uL Basophils # (Auto) 0.04 K/uL RDW Standard Deviation 42.5 fL RDW Coefficient of Variation 13.4 % Immature Granulocyte % (Auto) 0.7 % Immature Granulocyte # (Auto) 0.06 K/uL Sodium Level 138 mmol/L Potassium Level 3.9 mmol/L Chloride Level 104 mmol/L Carbon Dioxide Level 26 mmol/L Anion Gap 8.0 mmol/L Blood Urea Nitrogen 13 mg/dl Creatinine 0.87 mg/dl Est Creatinine Clear Calc Drug Dose 160.5 ml/min Estimated GFR () 122.5 Estimated GFR (Non- 105.7 BUN/Creatinine Ratio 15.4 Random Glucose 255 mg/dl Calcium Level 9.3 mg/dl Total Bilirubin 0.3 mg/dl Aspartate Amino Transf (AST/SGOT) 16 U/L Alanine Aminotransferase (ALT/SGPT) 38 U/L Alkaline Phosphatase 89 U/L Total Protein 7.2 gm/dl Albumin 3.4 gm/dl Globulin 3.8 gm/dl Albumin/Globulin Ratio 0.9 Thyroid Stimulating Hormone (TSH) 0.816 uIu/ml Ethyl Alcohol mg/dL < 3.0 mg/dl Bedside Glucose 179 mg/dl Mental Examination During interview pt is: alert and oriented, cooperative Appearance: appropriately dressed Eye contact is: good Motor behavior is: steady gait & station, no abnormal motor movements Speech: loud Affect: mood congruent Mood is: "frustrated" Thought process: goal directed, concrete Thought content: reality based without delusions Suicidal thought are: denied (but admits that he was suicidal last night, and was thinking of overdosing on his prescription medications) Homicidal thoughts are: denied Hallucinations: denies auditory, denies visual Cognition: attention grossly intact, language grossly intact, other (memory impaired for historical events) Intelligence estimated to be: below average Insight: impaired Judgement: impaired Impression / Recommendations Impression 41-year-old white male with multiple medical problems including obesity , diabetes, hyperlipidemia, and chronic pain as well as recurrent depression who presents with suicidality in the context of chronic pain and multiple psychosocial stressors. Inventory Assets Strengths: supportive family, has outpatient providers Risk Factors Assessment Male: Yes : Yes /single/: Yes Higher / Fall in social status: No Access to guns: No Health problems: Yes Mental Health Diagnoses: Yes Substance use disorders: Yes Previous attempt: No Family history of suicide: No Previous psychiatric stay: Yes Hopelessness: Yes Smoker: Yes Protective Factors Assessment Sikh beliefs: Yes : No Responsible for young children: No Employed: No Supportive family: Yes Good rapport with provider: Yes Recommendations The patient is admitted to [facility] ([facility]) on q 15 min checks (behavioral with suicide precautions) for safety. The patient will participate in group, recreational and milieu therapies and will be offered additional individual and family sessions as clinically appropriate. major depressive disorder, recurrent; ?prior history bipolar II continue home medications Chronic pain/neuropathy continue home medications, will hold flexeril (patient aware) as muscle relaxer could contribute to falls, particularly in combination with ETOH. DM type 2 (diabetes mellitus, type 2) continue home insulin regimen, monitor blood sugar, and consult diabetic pharmacist. Given how he eats at home, reviewed with staff focussing on carb counting and allowing regular diet since snacks are limited/monitored. Nicotine dependence Offered nicotine patch as needed for cravings. Patient was educated about the risks of ongoing nicotine use, and encouraged to consider cutting back or quitting. He is pre-contemplative. Brief intervention was >5 min. CPT Code Initial Hospital Care: 17080 Problem Qualifiers (1) Depression: Depression Type: major depressive disorder Major depression recurrence: recurrent Major depression episode severity: severe Psychotic features: without psychotic features (2) Nicotine dependence: Nicotine product type: cigarettes
--- NOTE | 2017-06-19 10:49 | Pharmacy Progress Note ---
Glycemic Control Intl Consult Date of Service Jun 19, 2017. Scope Glycemic Pharmacist consulted by Dr Gates on 06/19/17 for glycemic control and to write orders per [facility] inpatient glycemic control protocol Objective Weight (Kilograms): 132.500 Accuchecks BSG (last 24hrs): Test 06/18/17 20:46 06/19/17 08:50 Random Glucose 255 mg/dl (70-99) Bedside Glucose 179 mg/dl (70-99) Laboratory Data (last 24hrs) Test 06/18/17 20:46 Anion Gap 8.0 mmol/L BUN/Creatinine Ratio 15.4 Blood Urea Nitrogen 13 mg/dl Creatinine 0.87 mg/dl Potassium Level 3.9 mmol/L Sodium Level 138 mmol/L White Blood Count 9.11 K/uL Red Blood Count 5.12 M/uL Hemoglobin 14.8 g/dL Hematocrit 44.1 % Mean Corpuscular Volume 86.1 fL Mean Corpuscular Hemoglobin 28.9 pg Mean Corpuscular Hemoglobin Concent 33.6 g/dl Platelet Count 222 K/uL Mean Platelet Volume 8.9 fL Neutrophils (%) (Auto) 53.1 % Lymphocytes (%) (Auto) 34.9 % Monocytes (%) (Auto) 7.2 % Eosinophils (%) (Auto) 3.7 % Basophils (%) (Auto) 0.4 % Neutrophils # (Auto) 4.83 K/uL Lymphocytes # (Auto) 3.18 K/uL Monocytes # (Auto) 0.66 K/uL Eosinophils # (Auto) 0.34 K/uL Basophils # (Auto) 0.04 K/uL Recent Pertinent Medications Outpatient Anti-diabetic Regimen: * Lantus 35 units SQ BID + Novolog SS PC * A1c = 7.8 % 03/21/17 The patient is currently receiving: * Basal insulin: Lantus 35 units every 12 hours Risk Factors for Insulin Resistance: * Diet: T2DM Assessment & Plan ASSESSMENT: * 41 yr old male admitted with acute on chronic low back pain s/p fall at home and suicidal thoughts. * Pt is well known to the Pharmacy Glycemic service. During recent admission in April of this year he required about 110-116 units per day. * Will continue home dose of Lantus for now and utilize CF/CR based ~100 units per day (this correlates to weight/stress 2-3). * ADA & AACE recommend a goal blood sugar range 140-180 mg/dl for the majority of critically ill & non-critically ill patients. However, more stringent targets may be selected in individual cases. Will utilize more stringent goal of 110-140mg/dl based on patient age & comorbidities. Additionally, tighter glycemic control is warranted to facilitate wound/infection healing. PLAN FOR INPATIENT GLYCEMIC CONTROL: * Basal insulin * Lantus 35 units SQ BID * Correctional Insulin with NOVOLOG per scale ACHS or Q6hrs while NPO * Goal Range: Low 110 mg/dL - High 140 mg/dL * Correction Factor: 15 mg/dL/unit * Nutritional / Prandial insulin per carb ratio of 1 unit per 5 grams CHO consumed * Please note that the plan above was derived based on current level of insulin resistance and hospital stress. These recommendations are appropriate for inpatient admission only. Plan of care upon discharge will need to be reassessed to avoid potential outpatient hypo/hyperglycemia. Thank you.
[2017-06-19] MEDS: INSULIN GLARGINE SOLOSTAR 100 UNITS/ML 3 ML PEN SC SCH ×2 (11:10→21:57)
[2017-06-19] MEDS: INSULIN ASPART 100 UNITS/ML 3 ML PEN SC SCH ×3 (13:21→21:58)
[2017-06-20 06:58] VITALS: BP_SYST 141; BP_SYST 144; BP_SYST 150; BP_DIAS 87; BP_DIAS 93; PULSE 103; PULSE 114; PULSE 94; TEMP 36.6
[2017-06-20] MEDS: ACETAMINOPHEN 325 MG TAB PO PRN (09:02)
[2017-06-20] MEDS: INSULIN ASPART 100 UNITS/ML 3 ML PEN SC SCH ×4 (09:08→21:05)
[2017-06-20] MEDS: NICOTINE POLACRILEX 2 MG GUM MT PRN ×3 (09:13→20:21)
[2017-06-20] MEDS ORDERED: LIDODERM (LIDOCAINE) PATCH 5% TD PRN (09:15)
[2017-06-20] MEDS: INSULIN GLARGINE SOLOSTAR 100 UNITS/ML 3 ML PEN SC SCH ×2 (09:15→21:03)
[2017-06-20] MEDS: VENLAFAXINE HCL XR 37.5 MG CAPXR PO SCH (09:35)
[2017-06-20] MEDS: GABAPENTIN 800 MG TAB PO SCH ×3 (09:35→21:02)
[2017-06-20] MEDS: VENLAFAXINE HCL XR 150 MG CAPXR PO SCH (09:35)
[2017-06-20] MEDS: GABAPENTIN 100 MG CAP PO SCH ×3 (09:36→21:02)
[2017-06-20] MEDS ORDERED: ARIPIprazole TAB 10 MG TAB PO SCH (10:00)
[2017-06-20] MEDS ORDERED: NURSING VERBAL MED ORDER ONE (10:00)
--- NOTE | 2017-06-20 10:07 | Psychiatric Progress Notes ---
Progress Note Date of Service Jun 20, 2017. Interval History Bry Akhtar is a 41-year-old male who currently lives in [place] with family , has a history of recurrent depression and chronic pain who presented to the ER 06/18 with pain and endorsed SI. He was admitted on a 201 voluntary commitment. Chief Complaint "my back is acting up". Subjective Patient was seen & assessed interval progress reviewed with Nursing. No issues overnight, concrete but compliant with unit routines. He continues to deny suicidal thoughts here, pushes limits on his diet. appears steady on his feet, states he feels shakier this am and appears to have some genuine myoclonis of thighs this am. Review of Systems Psych: denies symptoms other than stated above Constitutional: pain as above Cardiovascular: denied GI: denied Neurologic: tingling, muscle jerks Remainder of 10 body systems also reviewed and denied other than noted above. Sleep Information Total Hours of Sleep: 10.00 Meal Information Percent of Breakfast Consumed: 100 Percent of Lunch Consumed: 100 Percent of Dinner Consumed: 100 Mental Status Exam During interview pt is: alert and oriented Appearance: appropriately dressed, appropriately groomed Eye contact is: good Motor behavior is: no abnormal motor movements Speech: normal in rate, rhythm & volume Affect: constricted Mood is: other ("OK") Thought process: concrete Thought content: reality based without delusions Suicidal thought are: denied Homicidal thoughts are: denied Hallucinations: denies auditory, denies visual Cognition: memory grossly intact, language grossly intact Intelligence estimated to be: consistent with level of education Insight: limited Judgement: limited Impression 41-year-old white male with multiple medical problems including obesity , diabetes, hyperlipidemia, and chronic pain as well as recurrent depression who presents with suicidality in the context of chronic pain and multiple psychosocial stressors. Continued Inpatient Care Continued inpatient hospitalization is medically necessary for ongoing monitoring and safety. Plan (1) Depression taper Abilify to 10 mg as possible contribution to muscle jerks on thigh noted , ?combo with Effexor XR (2) Intellectual disability encourage health coping skills and understanding of mind/body (3) DM type 2 (diabetes mellitus, type 2) pharmacy consult, diabetic diet, lipid profile on file as well as fasting glucose from last hospitalization (4) Leg weakness rx of back pain with local measures, held flexeril given falls and admitted use of beer at home (denies at same time) PT consult Discharge / Aftercare Planning Primary Care Physician: Name: Dr Olivares Therapist: Name: Papi Planishing Press Operator: Name: tio- bsu Visit Code E&M Code: 73761 Protective Factors Assessment Employed: No Data Vital Signs Last 24 Hrs: Date Time Temp Pulse Resp B/P (MAP) Pulse Ox O2 Delivery O2 Flow Rate FiO2 06/20/17 06:58 36.6 94 18 150/93 103 141/87 114 144/87 Meds Administered Last 24 Hrs: Meds Administered (Past 24Hrs) Medications (Trade) Dose Ordered Sig/Mario Alberto Route Start Time Stop Time Status Last Admin Dose Admin Ketorolac Tromethamine (Toradol Inj) 60 mg NOW STAT IM 06/18/17 19:20 06/18/17 19:23 DC 06/18/17 19:30 60 MG Tramadol HCl (Ultram Tab) 50 mg NOW STAT PO 06/18/17 19:20 06/18/17 19:23 DC 06/18/17 19:30 50 MG Acetaminophen (Tylenol Tab) 650 mg Q4H PRN PO 06/18/17 22:45 07/18/17 22:44 06/20/17 09:02 650 MG Insulin Glargine (Lantus Per Unit) 35 units 2242 STAT SC 06/18/17 22:42 06/18/17 22:43 DC 06/18/17 22:52 35 UNITS Aripiprazole (Abilify Tab) 15 mg DAILY PO 06/19/17 09:00 06/20/17 09:07 DC 06/19/17 09:35 15 MG Gabapentin (Neurontin Cap) 200 mg TID PO 06/19/17 09:00 07/19/17 08:59 06/20/17 09:36 200 MG Gabapentin (Neurontin Tab) 800 mg TID PO 06/19/17 09:00 07/19/17 08:59 06/20/17 09:35 800 MG Insulin Glargine (Lantus Solostar Pen) 35 units BID SC 06/19/17 09:00 07/19/17 08:59 06/20/17 09:15 35 UNITS Nicotine Polacrilex (Nicorette 2MG Gum) 1 piece PRN PRN MT 06/19/17 08:30 07/19/17 08:29 9/3/17 09:13 1 PIECE Venlafaxine HCl (effeXOR EXTENDED REL CAP) 150 mg DAILY PO 06/19/17 09:00 07/19/17 08:59 06/20/17 09:35 150 MG Venlafaxine HCl (effeXOR EXTENDED REL CAP) 37.5 mg DAILY PO 06/19/17 09:00 07/19/17 08:59 06/20/17 09:35 37.5 MG Insulin Aspart (novoLOG ASPART) SLIDING SCALE G... ACHS SC 06/19/17 12:00 07/19/17 11:59 06/20/17 09:08 12 UNITS Lab Results Last 24 Hrs: Last 24 Hours Test 06/19/17 12:04 06/19/17 16:09 06/19/17 20:47 Bedside Glucose 209 mg/dl 173 mg/dl 199 mg/dl Problem Qualifiers (1) Depression: Depression Type: major depressive disorder Major depression recurrence: recurrent Active/Remission status: currently active Major depression episode severity: moderate Qualified Codes: F33.1 - Major depressive disorder, recurrent, moderate (2) DM type 2 (diabetes mellitus, type 2): Diabetes mellitus complication status: with unspecified complications Diabetes mellitus nursing home insulin use: with nursing home use Qualified Codes: E11.8 - Type 2 diabetes mellitus with unspecified complications; 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
--- NOTE | 2017-06-20 10:18 | Pharmacy Progress Note ---
Glycemic Control Progress Note Date of Service Jun 20, 2017. Scope Glycemic Pharmacist consulted for glycemic control to write orders per [facility] inpatient glycemic control protocol. Objective Accuchecks BSG (last 24hrs): Test 06/19/17 12:04 06/19/17 16:09 06/19/17 20:47 Bedside Glucose 209 mg/dl (70-99) 173 mg/dl (70-99) 199 mg/dl (70-99) Recent Pertinent Medications The patient is currently receiving: * Basal insulin: Lantus 35 units every 12 hours * Bolus insulin: NOVOLOG per scale ACHS or Q6hrs while NPO Goal Range: Low 110 mg/dL - High 140 mg/dL Correction Factor: 15 mg/dL/unit Nutritional / Prandial insulin per carb ratio of 1 unit per 5 grams CHO consumed Risk Factors for Insulin Resistance: * Diet: T2DM Outpatient Anti-Diabetic Meds Lantus 35 units SQ BID + Novolog SS with meals Assessment & Plan ASSESSMENT: * See note from 06/19/17 for background information, in short: * 41 yr old male admitted with acute on chronic low back pain s/p fall at home and suicidal thoughts. * Pt received 107 units of insulin over the past 24 hours * 70 units of basal * 37 units of bolus * BSGs ranged from 173 - 209 mg/dL * Fasting BSG of 185 mg/dL is elevated - will hold off on increasing Lantus since patients regimen is already highly basal weighted. Will increase on 06/21 if fasting remains elevated. * Tighten CF/CR in attempt to re-distribute regimen 50% basal/50% bolus PLAN FOR INPATIENT GLYCEMIC CONTROL: * Basal insulin * Lantus 35 units SQ BID * Correctional Insulin with NOVOLOG per scale ACHS * Goal Range: Low 110 mg/dL - High 140 mg/dL * Tighten Correction Factor: 10 mg/dL/unit * Tighten Nutritional / Prandial insulin per carb ratio of 1 unit per 4 grams CHO consumed * Please note that the plan above was derived based on current level of insulin resistance and hospital stress. These recommendations are appropriate for inpatient admission only. Plan of care upon discharge will need to be reassessed to avoid potential outpatient hypo/hyperglycemia. Thank you.
[2017-06-20] MEDS ORDERED: DICLOFENAC SOD 1% GEL 100 GM TUBE EXT PRN (13:30)
[2017-06-21 07:04] VITALS: BP_SYST 124; BP_SYST 151; BP_DIAS 81; BP_DIAS 90; PULSE 109; PULSE 98; TEMP 36.5
--- NOTE | 2017-06-21 08:42 | Pharmacy Progress Note ---
Glycemic Control Progress Note Date of Service Jun 21, 2017. Scope Glycemic Pharmacist consulted for glycemic control to write orders per [facility] inpatient glycemic control protocol. Objective Accuchecks BSG (last 24hrs): Test 06/20/17 11:52 06/20/17 17:03 06/20/17 20:20 Bedside Glucose 177 mg/dl (70-99) 98 mg/dl (70-99) 122 mg/dl (70-99) Recent Pertinent Medications The patient is currently receiving: * Basal insulin: Lantus 35 units every 12 hours * Bolus insulin: NOVOLOG per scale ACHS or Q6hrs while NPO Goal Range: Low 110 mg/dL - High 140 mg/dL Correction Factor: 10 mg/dL/unit Nutritional / Prandial insulin per carb ratio of 1 unit per 4 grams CHO consumed Risk Factors for Insulin Resistance: * Diet: T2DM Outpatient Anti-Diabetic Meds Basal Insulin * Lantus 35 units SQ BID Bolus Insulin * Novolog SS PC Assessment & Plan ASSESSMENT: * See note from 06/19/17 for background information, in short: * 41 yr old male admitted with acute on chronic low back pain s/p fall at home and suicidal thoughts. * Pt received 137 units of insulin over the past 24 hours (increased from 107 units on 06/19) * 70 units of basal * 67 units of bolus * BSGs ranged from 98 - 185 mg/dL * Fasting BSG of 145 mg/dL is improved but remains above goal for patient. Will increase Lantus today. * Post-prandial BSGs at goal - no change to bolus insulin at this time. (CF/CR tightened yesterday from 15/5 to 10/4, then loosened to 12/4 at dinnertime for BSG 98 mg/dL). * Anticipate pt needing about 145 units/day. PLAN FOR INPATIENT GLYCEMIC CONTROL: * Basal insulin * Lantus 40 units this morning, then 35-40 units SQ BID * 35 units for BSG 140 mg/dL or less * 40 units for BSG greater than 140 mg/dL * Correctional Insulin with NOVOLOG per scale ACHS * Goal Range: Low 110 mg/dL - High 140 mg/dL * Tighten Correction Factor: 12 mg/dL/unit * Tighten Nutritional / Prandial insulin per carb ratio of 1 unit per 4 grams CHO consumed * Please note that the plan above was derived based on current level of insulin resistance and hospital stress. These recommendations are appropriate for inpatient admission only. Plan of care upon discharge will need to be reassessed to avoid potential outpatient hypo/hyperglycemia. Thank you.
[2017-06-21] MEDS: VENLAFAXINE HCL XR 150 MG CAPXR PO SCH (08:44)
[2017-06-21] MEDS: GABAPENTIN 100 MG CAP PO SCH ×3 (08:44→21:06)
[2017-06-21] MEDS: VENLAFAXINE HCL XR 37.5 MG CAPXR PO SCH (08:44)
[2017-06-21] MEDS: GABAPENTIN 800 MG TAB PO SCH ×3 (08:44→21:05)
[2017-06-21] MEDS: ARIPIprazole TAB 10 MG TAB PO SCH (08:44)
[2017-06-21] MEDS: INSULIN ASPART 100 UNITS/ML 3 ML PEN SC SCH ×4 (08:47→21:08)
[2017-06-21] MEDS: INSULIN GLARGINE SOLOSTAR 100 UNITS/ML 3 ML PEN SC SCH ×2 (08:53→21:07)
[2017-06-21] MEDS: NICOTINE POLACRILEX 2 MG GUM MT PRN ×3 (10:00→19:18)
[2017-06-21] MEDS ORDERED: DICLOFENAC SOD 1% GEL 100 GM TUBE EXT PRN (12:00)
--- NOTE | 2017-06-21 15:16 | Psychiatric Progress Notes ---
Progress Note Date of Service Jun 21, 2017. Interval History Bry Akhtar is a 41-year-old male who currently lives in [place] with family , has a history of recurrent depression and chronic pain who presented to the ER 06/18 with pain and endorsed SI. He was admitted on a 201 voluntary commitment. Chief Complaint "what if I fall again at home?". Subjective Patient was seen & assessed interval progress reviewed with Nursing. cooperative and positive in unit interactions and groups. doesn't complain of somatic symptoms. Patient notes muscle "twitches" as less noticeable yesterday. He describes the living area of his camper as being sunken and walking on the synthetic wood floor in regular socks and needing to go up a few stairs without a handrail to his bathroom. He was seen by PT and is focussed on his [facility] assessment tomorrow. Notified treatment team that likely needs an in home therapist to determine where he needs rails/etc. Encouraged patient to keep his slipper socks from the hospital and ambulating well here. Review of Systems Psych: denies symptoms other than stated above Constitutional: back pain Cardiovascular: denied GI: denied Neurologic: decreased twitches Remainder of 10 body systems also reviewed and denied other than noted above. Sleep Information Total Hours of Sleep: 7.75 Meal Information Percent of Breakfast Consumed: 100 Percent of Lunch Consumed: 100 Percent of Dinner Consumed: 100 Mental Status Exam During interview pt is: alert and oriented Appearance: appropriately dressed, appropriately groomed Eye contact is: good Motor behavior is: no abnormal motor movements Speech: normal in rate, rhythm & volume Affect: euthymic Mood is: other ("good") Thought process: concrete Thought content: reality based without delusions Suicidal thought are: denied Homicidal thoughts are: denied Hallucinations: denies auditory, denies visual Cognition: memory grossly intact, language grossly intact Intelligence estimated to be: consistent with level of education Insight: limited Judgement: limited Impression 41-year-old white male with multiple medical problems including obesity , diabetes, hyperlipidemia, and chronic pain as well as recurrent depression who presents with suicidality in the context of chronic pain and multiple psychosocial stressors. Continued Inpatient Care Continued inpatient hospitalization is medically necessary for ongoing monitoring and safety. Plan (1) Depression taper Abilify to 10 mg as possible contribution to muscle jerks on thigh noted , ?combo with Effexor XR (2) Intellectual disability encourage health coping skills and understanding of mind/body (3) DM type 2 (diabetes mellitus, type 2) pharmacy consult, diabetic diet, lipid profile on file as well as fasting glucose from last hospitalization (4) Leg weakness rx of back pain with local measures, held flexeril given falls and admitted use of beer at home (denies at same time) PT consult Discharge / Aftercare Planning Primary Care Physician: Name: Dr Olivares Therapist: Name: Papi Aircraft Powerplant Repairer: Name: tio- bs Visit Code E&M Code: 53304 Protective Factors Assessment Employed: No Data Vital Signs Last 24 Hrs: Date Time Temp Pulse Resp B/P (MAP) Pulse Ox O2 Delivery O2 Flow Rate FiO2 06/21/17 07:04 36.5 98 16 151/90 109 124/81 Meds Administered Last 24 Hrs: Meds Administered (Past 24Hrs) Medications (Trade) Dose Ordered Sig/Mario Alberto Route Start Time Stop Time Status Last Admin Dose Admin Aripiprazole (Abilify Tab) 10 mg DAILY PO 06/21/17 09:00 07/19/17 08:59 06/21/17 08:44 10 MG Lidocaine (Lidoderm Patch 5%) 1 patch DAILY PRN TD 06/20/17 09:15 06/20/17 13:22 DC 06/20/17 10:06 1 PATCH Aripiprazole (Abilify Tab) 10 mg DAILY PO 06/20/17 10:00 06/20/17 12:00 DC 06/20/17 10:22 10 MG Insulin Glargine (Lantus Solostar Pen) see protocol text BID SC 06/21/17 09:00 07/21/17 08:59 Future hold 06/21/17 08:53 40 UNITS Diclofenac Sodium (Voltaren 1% Top Gel) 1 appln DAILY PRN EXT 06/20/17 13:30 06/21/17 10:25 DC 06/20/17 15:04 1 APPLN Diclofenac Sodium (Voltaren 1% Top Gel) 1 appln QID PRN EXT 06/21/17 12:00 07/20/17 13:29 06/21/17 11:10 1 APPLN Lab Results Last 24 Hrs: Last 24 Hours Test 06/20/17 17:03 06/20/17 20:20 Bedside Glucose 98 mg/dl 122 mg/dl Problem Qualifiers (1) Depression: Depression Type: major depressive disorder Major depression recurrence: recurrent Active/Remission status: currently active Major depression episode severity: moderate Qualified Codes: F33.1 - Major depressive disorder, recurrent, moderate (2) DM type 2 (diabetes mellitus, type 2): Diabetes mellitus complication status: with unspecified complications Diabetes mellitus snf insulin use: with snf use Qualified Codes: E11.8 - Type 2 diabetes mellitus with unspecified complications; Z79.4 - long term care phlebotomist (current) use of insulin (3) Leg weakness: Laterality: bilateral Qualified Codes: R29.898 - Other symptoms and signs involving the musculoskeletal system
[2017-06-21] MEDS: ACETAMINOPHEN 325 MG TAB PO PRN (19:19)
[2017-06-22 06:43] VITALS: BP_SYST 124; BP_SYST 128; BP_DIAS 77; BP_DIAS 81; PULSE 105; PULSE 98; TEMP 36.4
[2017-06-22] MEDS ORDERED: INSULIN GLARGINE SOLOSTAR 100 UNITS/ML 3 ML PEN SC SCH (09:00)
[2017-06-22] MEDS: INSULIN ASPART 100 UNITS/ML 3 ML PEN SC SCH ×2 (09:04→12:42)
[2017-06-22] MEDS: VENLAFAXINE HCL XR 37.5 MG CAPXR PO SCH (09:07)
[2017-06-22] MEDS: ARIPIprazole TAB 10 MG TAB PO SCH (09:07)
[2017-06-22] MEDS: GABAPENTIN 100 MG CAP PO SCH (09:07)
[2017-06-22] MEDS: VENLAFAXINE HCL XR 150 MG CAPXR PO SCH (09:07)
[2017-06-22] MEDS: GABAPENTIN 800 MG TAB PO SCH (09:07)
[2017-06-22] MEDS: NICOTINE POLACRILEX 2 MG GUM MT PRN ×2 (09:20→12:42)
[2017-06-22] MEDS ORDERED: ARIP1TAB8 PO (09:21)
[2017-06-22] MEDS ORDERED: NCR2 MT (09:21)
[2017-06-22] MEDS ORDERED: VLTG EXT (09:21)
--- NOTE | 2017-06-22 09:33 | Discharge Instructions ---
Discharge Information Report Includes Report will include the: Discharge Instructions & Summary Admission Admission Date / Time: Jun 18, 2017 at 22:25 Reason for Admission: Major Depressive Recurrent Severe Discharge Discharge Diagnosis / Problem: Depression Condition at Discharge: Good Discharge Goals Goal(s): Decrease discomfort, Improve disease control, Prevent Disease Progression Activity Recommendations Activity Limitations: resume your previous activity . Instructions / Follow-Up Instructions / Follow-Up . SPECIAL CARE INSTRUCTIONS: 1. Follow through with your scheduled aftercare appointments. If unable to keep an appointment, please call to reschedule. 2. Take your medication only as prescribed. Medication should not be changed or stopped without the approval of your doctor. In the event of worsening symptoms or concerns about side effects, contact your doctor immediately. 3. Utilize new healthy coping skills, anger management skills, and stress management skills learned during your hospitalization. Journal feelings and process them with a support person. Identify stressors or situations that may result in relapse, deterioration or inappropriate behaviors and develop a plan to deal with those issues. 4. If your coping skills are ineffective and you are in crisis, contact your outpatient providers for direction. If unable to reach your providers, please call the CAN HELP LINE AT or go to the closest Emergency Room. 5. Avoid alcohol and un-prescribed drugs. 6. You have been provided with the Mental Health Advance Directives Pamphlet for your review. AFTERCARE APPOINTMENTS: * Please call your insurance company prior to your scheduled appointment to confirm your aftercare providers are covered. Take your insurance information to your appointments. . Discharge / Aftercare Planning Primary Care Physician: Name: Dr Olivares Date of Appointment: Jul 05, 2017 Psychiatrist: Name: Dr Mcadams [facility] Date of Appointment: Jul 08, 2017 Time of Appointment: 9:45am Therapist: Name Of Therapist: Papi Marion [facility] Date of Appointment: Jun 23, 2017 Time of Appointment: 11:30am Intraoperative Neuro Tech: Name: Dave Dong- TANIA Fire Hazard Inspector: Name: Antoinette . Follow-Up Care Plan for Follow-Up Care: Bry has an appt at [facility] for evaluation of pain and ambulatory needs. Current Hospital Diet Patient's current hospital diet: Diabetes Type 2 Diet Discharge Diet Recommended Diet: Diabetes Type 2 Diet Procedures Procedures Performed: No Pending Studies Pending Studies at Discharge: No Medical Emergencies . Who to Call and When: Medical Emergencies: For questions or emergencies related to your hospital stay, please contact the Inpatient Behavioral Health Unit at [phone]. A estimator printing plate making is on-call 10/05 for the Behavioral Health Unit for emergencies At any time you feel your situation is an emergency, you may also call 911 immediately. . Non-Emergent Contact Non-Emergency issues call your: Primary Care Provider, Psychiatrist Past History Medical & Surgical History: (1) Leg weakness (2) HTN (hypertension) (3) DM type 2 (diabetes mellitus, type 2) (4) IBS (irritable bowel syndrome) (5) Nicotine dependence (6) Obesity (7) Obstructive sleep apnea Advance Directives Existing Advance Directive: No Do You Have an Existing Mental: No Existing Living Will: No Existing Power of Manager Strategic Development: No Advance Directives Info Given: To Pt/S.O. Advance Directives Reason: Declines as Mental Health Visit. Discharge Summary Admission HPI Per the Admitting provider: Patient admitted with complaints of depression and suicidality related to chronic leg pain associated with falls. Hospital Course (1) Depression taper Abilify to 10 mg as possible contribution to muscle jerks on thigh noted , ?combo with Effexor XR (2) Intellectual disability encourage health coping skills and understanding of mind/body (3) DM type 2 (diabetes mellitus, type 2) pharmacy consult, diabetic diet, lipid profile on file as well as fasting glucose from last hospitalization (4) Leg weakness rx of back pain with local measures, held flexeril given falls and admitted use of beer at home (denies at same time) PT consult Risk Factors Assessment Male: Yes : Yes Health problems: Yes Mental Health Diagnoses: Yes Previous psychiatric stay: Yes Smoker: Yes Protective Factors Assessment Employed: No Day of Discharge Assessment COURSE OF HOSPITALIZATION: The patient was on our unit for 4 days. Medications were continued at OP dosing. Voltaren gel was added for pain. His primary concern is that of his multiple falls at home related to leg pain and gait instability, and feeling that he needs PT in order to deal with it. he fears more falls at home. While on the unit, his mood improved and he had no further SI. He appeared to do well with the structure and support of the milieu. He ambulated with out falls, but did report that he had times, especially at night, when his leg would "lock up" making it difficult for him to move it. He was provided nicorette gum for smoking cessation during his stay , along with counseling and will be sent home with a prescription for gum. He has an appointment today at [facility] for evaluation, and so will be discharged with his sister to attend this appt. DAY OF DISCHARGE ASSESSMENT: The patient is requesting discharge. He denies SI /HI. His gait and station are WNL. Eye contact is good. Affect is restricted. Speech demonstrates mild impediment, but is of normal rate, volume and tone. thoughts are organized, goal directed and without evidence of thought disorder. Recent/remote memory are intact per conversation. Intelligence is estimated to be below average. Insight and judgement are improved over admission. Laboratory Test 06/18/17 20:43 06/18/17 20:46 06/21/17 20:39 06/22/17 07:48 Urine Color YELLOW Urine Appearance CLEAR Urine pH 5.5 Urine Specific [place] 1.044 Urine Protein NEG Urine Glucose (UA) 3+ Urine Ketones NEG Urine Occult Blood NEG Urine Nitrite NEG Urine Bilirubin NEG Urine Urobilinogen NEG Urine Leukocyte Esterase NEG Urine Opiates Screen NEG Urine Methadone, Qualitative NEG Urine Barbiturates NEG Urine Phencyclidine (PCP) Level NEG Ur Amphetamine/Methamphetamine NEG MDMA (Ecstasy) Screen NEG Urine Benzodiazepines Screen NEG Urine Cocaine Metabolite NEG Urine Marijuana (THC) NEG White Blood Count 9.11 Red Blood Count 5.12 Hemoglobin 14.8 Hematocrit 44.1 Mean Corpuscular Volume 86.1 Mean Corpuscular Hemoglobin 28.9 Mean Corpuscular Hemoglobin Concent 33.6 Platelet Count 222 Mean Platelet Volume 8.9 Neutrophils (%) (Auto) 53.1 Lymphocytes (%) (Auto) 34.9 Monocytes (%) (Auto) 7.2 Eosinophils (%) (Auto) 3.7 Basophils (%) (Auto) 0.4 Neutrophils # (Auto) 4.83 Lymphocytes # (Auto) 3.18 Monocytes # (Auto) 0.66 Eosinophils # (Auto) 0.34 Basophils # (Auto) 0.04 RDW Standard Deviation 42.5 RDW Coefficient of Variation 13.4 Immature Granulocyte % (Auto) 0.7 Immature Granulocyte # (Auto) 0.06 Sodium Level 138 Potassium Level 3.9 Chloride Level 104 Carbon Dioxide Level 26 Anion Gap 8.0 Blood Urea Nitrogen 13 Creatinine 0.87 Est Creatinine Clear Calc Drug Dose 160.5 Estimated GFR () 122.5 Estimated GFR (Non- 105.7 BUN/Creatinine Ratio 15.4 Random Glucose 255 Calcium Level 9.3 Total Bilirubin 0.3 Aspartate Amino Transferase (AST) 16 Alanine Aminotransferase (ALT) 38 Alkaline Phosphatase 89 Total Protein 7.2 Albumin 3.4 Globulin 3.8 Albumin/Globulin Ratio 0.9 Thyroid Stimulating Hormone (TSH) 0.816 Ethyl Alcohol mg/dL < 3.0 POC Glucose 118 160 Total Time Total Time Spent (min): Greater than 30 minutes Total Time Included: examination of the patient, discharge planning, medication reconciliation, communication with other providers Tobacco Cessation at Discharge Smoking Status: Current Every Day Smoker FDA approved Prescription: nicotine replacement product Problem Qualifiers (1) Depression: Depression Type: major depressive disorder Major depression recurrence: recurrent Active/Remission status: currently active Major depression episode severity: moderate Qualified Codes: F33.1 - Major depressive disorder, recurrent, moderate (2) DM type 2 (diabetes mellitus, type 2): Diabetes mellitus complication status: with unspecified complications Diabetes mellitus terminal makeup operator insulin use: with terminal makeup operator use Qualified Codes: E11.8 - Type 2 diabetes mellitus with unspecified complications; Z79.4 - termite renewal inspector (current) use of insulin (3) Leg weakness: Laterality: bilateral Qualified Codes: R29.898 - Other symptoms and signs involving the musculoskeletal system
[2017-06-22] MEDS ORDERED: INSDGIPEN SC (11:41)
[2017-06-22] MEDS ORDERED: NRN600 PO (21:00)
[2017-06-22] MEDS ORDERED: DICL1GEL12 TOP (21:00)
[2017-06-22] MEDS ORDERED: FLX/5 PO (21:00)
[2017-06-22] MEDS ORDERED: VENL37.593 PO (21:00)
[2017-06-22] MEDS ORDERED: ULT50 PO (21:00)
[2017-06-22] MEDS ORDERED: ARIP1TAB15 PO (21:00)
[2017-06-22] MEDS ORDERED: NRN400 PO (21:00)
[2017-06-22] MEDS ORDERED: NVLGI/PEN SC (22:11)
[2017-06-22] MEDS ORDERED: EFFSR150 PO (22:11)
[2017-07-29] MEDS ORDERED: LPT40 PO (09:14)
[2017-07-29] MEDS ORDERED: ASPEC81 PO (09:14)
== END 2017-06-22 12:51 | disposition home or self-care (01) | DRG 885 ==
LOC: EDBD 19:03 → C.EDB 19:04 → C.MHU 22:25
PROVIDERS: ADMIT Psychiatry & Neurology Child & Adolescent Psychiatry; ATTEND Psychiatry & Neurology Child & Adolescent Psychiatry
DX: F33.1 Major depressive disorder, recurrent, moderate (principal); R45.851 Suicidal ideations; R29.898 Other symptoms and signs involving the musculoskeletal system; M54.5 Low back pain; G89.29 Other chronic pain; R29.6 Repeated falls; F79 Unspecified intellectual disabilities; E11.40 Type 2 diabetes mellitus with diabetic neuropathy, unspecified; E11.65 Type 2 diabetes mellitus with hyperglycemia; I10 Essential (primary) hypertension; E66.9 Obesity, unspecified; F17.210 Nicotine dependence, cigarettes, uncomplicated; Z79.899 Other long term (current) drug therapy; Z79.4 Long term (current) use of insulin; Z68.36 Body mass index [BMI] 36.0-36.9, adult; Z83.3 Family history of diabetes mellitus; Z82.49 Family history of ischemic heart disease and other diseases of the circulatory system; Z81.1 Family history of alcohol abuse and dependence; Z81.8 Family history of other mental and behavioral disorders

== ENCOUNTER 2017-06-22 20:05 | Emergency (ER) | payer OTHER ==
[~2017-06-22] VITALS: Ht 190.5 cm; Wt 135.8 kg
[~2017-06-22 20:05] MED LIST changes: +ARIP1TAB8 PO; +INSDGIPEN SC; +VLTG EXT
[2017-06-22 20:10] VITALS: TEMP 36.9; Ht 190.5 cm; Wt 135.8 kg
[2017-06-22 20:24] VITALS: O2SAT 98
[2017-06-22] MEDS ORDERED: MoRPHine SULFATE 4 MG/ML 1 ML CARP\\VIAL IV STA (20:44)
[2017-06-22] MEDS ORDERED: ACETAMINOPHEN 325 MG TAB PO STA (20:44)
[2017-06-22] MEDS ORDERED: SODIUM CHLORIDE 0.9% 1000ML 1,000 ML IV STA ×2 (20:44→23:46)
--- NOTE | 2017-06-22 20:51 | EMERGENCY ROOM VISIT NOTE ---
History Report prepared by Marianela: Gaurang Geiger Under the Supervision of: Dr. Red Dickey M.D. First contact with patient: 20:26 Chief Complaint: CHEST PAIN Stated Complaint: CHEST PAIN Nursing Triage Summary: Patient arrived to [facility] via ALS from home. Patient was discharged from [address] [place] [address] this morning. Patient was sent to [facility] for a physical therapy exam to see if he mees criteria for a therapy admission there. Patient reports that he has had multiple falls and has generalized shakiness with BLE weakness. They believed maybe those symptoms were related to the Abilify he was taking. They lowered the dose of it from 15mg to 10mg. Patient reports "I got home and was resting because my back and legs hurt. About 1 hour ago, I developed a pressure in the center of my chest." Pressure is nonradiating. Patient admits to mild SOB and nausea. Patient was given ASA 324mg PO and Nitro 1 spray SL in route to the ED. Patient rating decreased to a 7/10. History of Present Illness The patient is a 41 year old white male with a past medical history of bulging discs, IBS, gastroparesis, diabetes, arthritis, neuropathy, and high cholesterol who presents to the ED with a cc of constant chest tightness beginning an hour ago. Positive back pain, sweating neck pain, and recent falls. Negative nausea, vomiting, coughs, fever, chills, shortness of breaths, incontinence, calf pain or history of blood clots. He states that he has pain like this before. He smokes but is trying to quit. He states that he is taking his medications. He has a family history of [place] at an age of 50s. Source of History: patient Onset: an hour ago Position: chest Quality: other (tightness) Timing: constant Associated Symptoms: + diaphoresis, + neck pain, + back pain, No fevers, No chills, No cough, No SOB, No nausea, No vomiting Review of Systems See HPI for pertinent positives and negatives. A total of ten systems were reviewed and were otherwise negative. Past Medical & Surgical Medical Problems: (1) Depression (2) DM type 2 (diabetes mellitus, type 2) (3) Gastroparesis (4) HTN (hypertension) (5) IBS (irritable bowel syndrome) (6) Intellectual disability (7) Mental retardation (8) Nicotine dependence (9) NSVT (nonsustained ventricular tachycardia) (10) Obesity (11) Obstructive sleep apnea (12) Sepsis Surgical Problems: (1) S/P left knee arthroscopy (2) S/P tonsillectomy Social History Problems: (1) Alcohol abuse Family History Cancer Diabetes mellitus MOTHER GRANDMOTHER UNCLE AUNT Gallbladder disease Heart disease Hypertension MOTHER FATHER Lung disease Social History Smoking Status: Current Every Day Smoker Alcohol Use: heavy Drug Use: none Marital Status: Housing Status: lives with family Occupation Status: employed, other Current/Historical Medications Scheduled Aripiprazole (Aripiprazole), 10 MG PO HS Gabapentin (Gabapentin), 400 MG PO TID Gabapentin (Gabapentin), 600 MG PO TID Insulin Aspart (Novolog Flexpen), 1 DOSE SC PC Insulin Glargine (Lantus Solostar), 35 UNITS SC BID Venlafaxine Hcl (Effexor Extended Rel), 150 MG PO QAM Venlafaxine Hcl (Venlafaxine Extended Rel), 37.5 MG PO QAM Scheduled PRN Cyclobenzaprine HCl (Cyclobenzaprine HCl), 5 MG PO TID PRN for Muscle Spasm Diclofenac Sodium (Topical) (Voltaren 1% Top Gel), 1 APPLN TOP QID PRN for Pain Nicotine Polacrilex (Nicorelief), 1 PIECE MT PRN PRN for nicotine dependence cravings Tramadol HCl (Tramadol HCl), 25 MG PO Q8 PRN for Pain Allergies Coded Allergies: Cephalosporins (Verified Allergy, Unknown, CECLOR, 06/18/17) NSAIDs (Verified Adverse Reaction, Unknown, gastroparesis, kidney problems , 06/22/17) Physical Exam Vital Signs Date Time Temp Pulse Resp B/P (MAP) Pulse Ox O2 Delivery O2 Flow Rate FiO2 06/23/17 01:27 127/87 06/23/17 01:25 103 14 138/81 96 Room Air 06/23/17 01:22 06/23/17 01:15 100 94 06/23/17 01:00 103 95 06/23/17 00:45 97 15 95 06/23/17 00:40 99 98 06/23/17 00:31 96/56 06/23/17 00:25 101 95 06/23/17 00:10 99 06/23/17 00:10 104 92 06/23/17 00:01 119/74 06/22/17 23:55 101 12 96 06/22/17 23:40 105 14 96 06/22/17 23:31 134/78 06/22/17 23:25 105 94 06/22/17 23:10 110 13 97 06/22/17 23:05 108 95 06/22/17 23:01 124/84 06/22/17 22:50 112 97 06/22/17 22:35 110 16 95 06/22/17 22:31 126/81 06/22/17 22:20 113 18 96 06/22/17 22:05 111 17 96 06/22/17 22:01 132/88 06/22/17 22:00 114 20 132/88 96 Room Air 06/22/17 21:56 150/100 06/22/17 21:50 119 15 97 06/22/17 21:35 119 21 95 06/22/17 21:20 122 20 96 06/22/17 21:05 124 15 97 06/22/17 21:03 143/91 06/22/17 20:50 125 14 96 06/22/17 20:35 125 97 06/22/17 20:24 98 Room Air 06/22/17 20:20 123 14 95 06/22/17 20:18 97 Room Air 06/22/17 20:13 136 06/22/17 20:10 36.9 135 18 133/63 98 Room Air 06/22/17 20:10 133/63 Physical Exam GENERAL: Awake, alert, obese, mildly diaphoretic-appearing, NAD HENT: Normocephalic, atraumatic. EYES: Normal conjunctiva. Sclera non-icteric. NECK: Supple. No nuchal rigidity. FROM. RESPIRATORY: CTAB, no rhonchi, wheezing, crackles CARDIAC: Tachycardic but regular rhythm. no MRG ABDOMEN: Soft, NTND, BS+ MSK: No reproducible back pain. No fluctuance or TTP. No chest wall TTP, no LE edema. No calf pain. No swelling, erythema, or calor of either calf. NEURO: GCS 15, CN 2-12 intact, moves all 4s on command. SP, DP, and Tib nerve intact to sensory and motor. Positive straight leg raise. No saddle anesthesia. SKIN: No rash or jaundice noted. Medical Decision & Procedures ER Provider Diagnostic Interpretation: Radiology results as stated below per my review and radiologist interpretation: CHEST ONE VIEW PORTABLE CLINICAL HISTORY: chest pain, tachycardia dyspnea COMPARISON STUDY: 06/16/2017 FINDINGS: The bones soft tissues and hemidiaphragms are normal. The cardiomediastinal silhouette is normal. The lungs are clear. The pulmonary vasculature is normal. IMPRESSION: Negative chest. The above report was generated using voice recognition software. It may contain grammatical, syntax or spelling errors. Electronically signed by: Colt Sousa M.D. 06/22/2017 9:18 PM Dictated Date/Time: 06/22/2017 9:17 PM Laboratory Results 06/22/17 19:55 Red Blood Count 5.95, Mean Corpuscular Volume 85.4, Mean Corpuscular Hemoglobin 28.2, Mean Corpuscular Hemoglobin Concent 33.1, Mean Platelet Volume 9.3, Neutrophils (%) (Auto) 55.7, Lymphocytes (%) (Auto) 31.9, Monocytes (%) (Auto) 8.5, Eosinophils (%) (Auto) 2.5, Basophils (%) (Auto) 0.6, Neutrophils # (Auto) 5.37, Lymphocytes # (Auto) 3.08, Monocytes # (Auto) 0.82, Eosinophils # (Auto) 0.24, Basophils # (Auto) 0.06 06/22/17 19:55 Test 06/22/17 19:55 06/22/17 22:20 06/22/17 23:53 White Blood Count 9.65 K/uL (4.8-10.8) Red Blood Count 5.95 M/uL (4.7-6.1) Hemoglobin 16.8 g/dL (14.0-18.0) Hematocrit 50.8 % (42-52) Mean Corpuscular Volume 85.4 fL (80-100) Mean Corpuscular Hemoglobin 28.2 pg (25-34) Mean Corpuscular Hemoglobin Concent 33.1 g/dl (32-36) Platelet Count 272 K/uL (130-400) Mean Platelet Volume 9.3 fL (7.4-10.4) Neutrophils (%) (Auto) 55.7 % Lymphocytes (%) (Auto) 31.9 % Monocytes (%) (Auto) 8.5 % Eosinophils (%) (Auto) 2.5 % Basophils (%) (Auto) 0.6 % Neutrophils # (Auto) 5.37 K/uL (1.4-6.5) Lymphocytes # (Auto) 3.08 K/uL (1.2-3.4) Monocytes # (Auto) 0.82 K/uL (0.11-0.59) Eosinophils # (Auto) 0.24 K/uL (0-0.5) Basophils # (Auto) 0.06 K/uL (0-0.2) RDW Standard Deviation 41.1 fL (36.4-46.3) RDW Coefficient of Variation 13.3 % (11.5-14.5) Immature Granulocyte % (Auto) 0.8 % Immature Granulocyte # (Auto) 0.08 K/uL (0.00-0.02) Anion Gap 8.0 mmol/L (3-11) Est Creatinine Clear Calc Drug Dose 141.5 ml/min Estimated GFR () 106.4 Estimated GFR (Non- 91.8 BUN/Creatinine Ratio 13.8 (10-20) Calcium Level 10.0 mg/dl (8.5-10.1) Magnesium Level 2.1 mg/dl (1.8-2.4) Urine Color YELLOW Urine Appearance CLEAR (CLEAR) Urine pH 5.5 (4.5-7.5) Urine Specific Platinum 1.021 (1.000-1.030) Urine Protein NEG (NEG) Urine Glucose (UA) 3+ (NEG) Urine Ketones NEG (NEG) Urine Occult Blood NEG (NEG) Urine Nitrite NEG (NEG) Urine Bilirubin NEG (NEG) Urine Urobilinogen NEG (NEG) Urine Leukocyte Esterase NEG (NEG) Urine WBC (Auto) 1-5 /hpf (0-5) Urine RBC (Auto) 0-4 /hpf (0-4) Urine Hyaline Casts (Auto) 1-5 /lpf (0-5) Urine Epithelial Cells (Auto) 10-20 /lpf (0-5) Urine Bacteria (Auto) NEG (NEG) Urine Opiates Screen POS (NEG) Urine Methadone, Qualitative NEG (NEG) Urine Barbiturates NEG (NEG) Urine Phencyclidine (PCP) Level NEG (NEG) Ur Amphetamine/Methamphetamine NEG (NEG) MDMA (Ecstasy) Screen NEG (NEG) Urine Benzodiazepines Screen NEG (NEG) Urine Cocaine Metabolite NEG (NEG) Urine Marijuana (THC) NEG (NEG) Bedside Troponin I < 0.030 ng/ml (0-0.045) Laboratory results reviewed by me Medications Administered Medications (Trade) Dose Ordered Sig/Mario Alberto Route Start Time Stop Time Status Last Admin Dose Admin Sodium Chloride 1,000 ml @ 999 mls/hr Q1H1M STAT IV 06/22/17 20:44 06/22/17 21:44 DC 06/22/17 21:28 999 MLS/HR Morphine Sulfate (MoRPHine SULFATE INJ) 4 mg NOW STAT IV 06/22/17 20:44 06/22/17 20:46 DC 06/22/17 21:29 4 MG Acetaminophen (Tylenol Tab) 650 mg NOW STAT PO 06/22/17 20:44 06/22/17 20:46 DC 06/22/17 21:30 650 MG Diazepam (Valium Tab) 10 mg NOW STAT PO 06/22/17 22:54 06/22/17 22:55 DC 06/22/17 23:05 10 MG Fentanyl Citrate (Fentanyl Inj) 100 mcg NOW ONCE IV 06/23/17 00:00 06/23/17 00:01 DC 06/22/17 23:58 100 MCG Acetaminophen/ Hydrocodone Bitart (Herscher 10/325 Tab) 1 tab ONE STAT PO 06/22/17 23:46 06/22/17 23:49 DC 06/22/17 23:57 1 TAB Sodium Chloride 1,000 ml @ 999 mls/hr Q1H1M STAT IV 06/22/17 23:46 06/23/17 00:46 DC 06/22/17 23:55 999 MLS/HR ECG Indication: chest pain Rate (beats per minute): 130 Rhythm: sinus tachycardia Findings: other (Normal intervals, normal axis, no STS changes or TWI) ED Course 2041: The patient was evaluated in room A4. A complete history and physical exam was performed. 2310: I reevaluated the patient, and he was given Gatorade and water. 0045: I reevaluated the patient, and he was asleep. Discussed results and discharge instructions: He verbalized understanding and agreement. The patient is ready for discharge. Medical Decision The patient is a 41 year old white male with a past medical history of bulging discs, IBS, gastroparesis, diabetes, arthritis, neuropathy, and high cholesterol who presents to the ED with a cc of constant chest tightness beginning an hour ago. Positive back pain, sweating neck pain, and recent falls. Negative nausea, vomiting, coughs, fever, chills, shortness of breaths, incontinence, calf pain or history of blood clots. Triage Nursing notes reviewed. The patient's presentation and history were concerning for dehydration, DKA, ACS , PE, sciatica, radiculopathy. Medication Reconcilliation Current Medication List: was personally reviewed by me Blood Pressure Screening Patient's blood pressure: Normal blood pressure Impression Primary Impression: Back pain Additional Impressions: Chest pain Tachycardia Nicotine addiction Encounter for smoking cessation counseling Scribe Attestation The scribe's documentation has been prepared under my direction and personally reviewed by me in its entirety. I confirm that the note above accurately reflects all work, treatment, procedures, and medical decision making performed by me. Departure Information Dispostion Home / Self-Care Referrals Velasquez Valencia M.D. (PCP) Patient Instructions ED Sciatica, Exercises Back Release, Exercises Back Seated Rotation, Exercises Back Side Stretch, Exercises Lower Back Rotation, My [facility] [employer] Additional Instructions Please return to the emergency department if you have worsening or recurrent symptoms not amenable to at-home treatment. Please call for a follow-up appointment with her primary care physician. Please take your medications as prescribed. If you have other concerns and/or complaints please feel free to also call your primary care physician's office or return the ED for further evaluation, management, and treatment. You were found to have an elevated blood pressure today (>120 sytolic or >90 diastolic). Per medicare guidelines, you need to follow up with this blood pressure screening with your Primary Care Physician (PCP). For a new PCP call [phone]. You received narcotic or benzodiazepene medication while in the emergency room today. This is an addictive medication that may cause drowziness as well as constipation. Do not drive, operate heavy machinery, or drink alcohol under the influence of this medication. Take 1000 mg tylenol every 6 hours as needed for pain. Please continue smoking cessation and avoid nicotine as this can elevate your heart rate. You have been examined and treated today on an emergency basis only. This is not a substitute for, or an effort to provide, complete comprehensive medical care. It is impossible to recognize and treat all injuries or illnesses in a single emergency department visit. It is therefore important that you follow up closely with [facility]. Call as soon as possible for an appointment. Thank you for your time and consideration. I look forward to speaking with you again soon. Please don't hesitate to call us if you have any questions. Problem Qualifiers Primary Impression: Back pain Back pain location: low back pain Chronicity: chronic Back pain laterality : bilateral Sciatica presence: with sciatica Sciatica laterality: bilateral sciatica Qualified Codes: M54.42 - Lumbago with sciatica, left side ; M54.41 - Lumbago with sciatica, right side; G89.29 - Other chronic pain Additional Impressions: Chest pain Chest pain type: unspecified Qualified Codes: R07.9 - Chest pain, unspecified Nicotine addiction Nicotine product type: cigarettes Substance use status: uncomplicated Qualified Codes: F17.210 - Nicotine dependence, cigarettes, uncomplicated
[2017-06-22 20:59] LABS: BASO % 0.6 %; BASO ABS # 0.06 K/uL (0-0.2); COMPLETE YES; EOS % 2.5 %; HEMATOCRIT 50.8 % (42-52); IG% 0.8 %; LYMPH % 31.9 %; LYMPH ABS # 3.08 K/uL (1.2-3.4); MEAN CELL VOLUME 85.4 fL (80-100); MEAN CORPUSCULAR HEMOGLOBIN 28.2 pg (25-34); MEAN CORPUSCULAR HGB CONC 33.1 g/dl (32-36); MEAN PLATELET VOLUME 9.3 fL (7.4-10.4); MONO % 8.5 %; NEUT % 55.7 %; PLATELET COUNT 272 K/uL (130-400); RED BLOOD COUNT 5.95 M/uL (4.7-6.1); WHITE BLOOD COUNT 9.65 K/uL (4.8-10.8)
[2017-06-22] MEDS ORDERED: FLX/5 PO (21:00)
[2017-06-22] MEDS ORDERED: NRN400 PO (21:00)
[2017-06-22] MEDS ORDERED: DICL1GEL12 TOP (21:00)
[2017-06-22] MEDS ORDERED: VENL37.593 PO (21:00)
[2017-06-22] MEDS ORDERED: ARIP1TAB15 PO (21:00)
[2017-06-22] MEDS ORDERED: ULT50 PO (21:00)
[2017-06-22] MEDS ORDERED: NRN600 PO (21:00)
[2017-06-22 21:15] LABS: BUN/CREATININE RATIO 13.8 (10-20); MAGNESIUM 2.1 mg/dl (1.8-2.4); POTASSIUM 3.9 mmol/L (3.5-5.1)
--- NOTE | 2017-06-22 21:19 | DIAGNOSTIC IMAGING REPORT ---
CHEST ONE VIEW PORTABLE CLINICAL HISTORY: chest pain, tachycardia dyspnea COMPARISON STUDY: 06/16/2017 FINDINGS: The bones soft tissues and hemidiaphragms are normal. The cardiomediastinal silhouette is normal. The lungs are clear. The pulmonary vasculature is normal. IMPRESSION: Negative chest. The above report was generated using voice recognition software. It may contain grammatical, syntax or spelling errors. Electronically signed by: Colt Sousa M.D. 06/22/2017 9:18 PM Dictated Date/Time: 06/22/2017 9:17 PM
[2017-06-22] MEDS: IBUPROFEN 200 MG TAB PO STA ×2 (21:29→21:32)
[2017-06-22] MEDS ORDERED: EFFSR150 PO (22:11)
[2017-06-22] MEDS ORDERED: NVLGI/PEN SC (22:11)
[2017-06-22] MEDS ORDERED: DIAZEPAM 5MG TAB PO STA (22:54)
[2017-06-22 22:59] LABS: URINE APPEARANCE CLEAR (CLEAR); URINE BILIRUBIN NEG (NEG); URINE COLOR YELLOW; URINE NITRITE NEG (NEG); URINE PH 5.5 (4.5-7.5); URINE SPECIFIC GRAVITY 1.021 (1.000-1.030); UROBILINOGEN NEG (NEG); ZZUR CULT IF INDIC CLEAN CATCH NO
[2017-06-22 23:00] LABS: MANUAL MICROSCOPIC REQUIRED? NO; REVIEW REQ? NO
[2017-06-22 23:26] LABS: BENZODIAZEPINE, URINE NEG (NEG); COCAINE,URINE NEG (NEG); PHENCYCLIDINE, URINE NEG (NEG)
[2017-06-22] MEDS ORDERED: HYDROCODONE/ACETAMI 10/325 TAB PO STA (23:46)
[2017-06-23] MEDS ORDERED: FENTANYL CITRATE INJ 50 MCG/1 ML 2 ML VIAL IV ONE
[2017-06-23 01:25] VITALS: PULSE 103; O2SAT 96
[2017-06-23 01:27] VITALS: BP 127/87
[2017-06-25 19:53] LABS: COD UR NEGATIVE NG/ML (CUTOFF=50); HYDROCOD UR NEGATIVE NG/ML (CUTOFF=50); HYDROMOR UR NEGATIVE NG/ML (CUTOFF=50); MORPHINE UR 747 NG/ML (CUTOFF=50); NORHYDROCODONE CONF UR NEGATIVE NG/ML (CUTOFF=50); OXYMORPH UR NEGATIVE NG/ML (CUTOFF=50)
[2017-07-29] MEDS ORDERED: ASPEC81 PO (09:14)
[2017-07-29] MEDS ORDERED: LPT40 PO (09:14)
== END 2017-06-23 01:29 | disposition home or self-care (01) ==
LOC: EDBD 20:05 → C.EDA 20:07
DX: M54.42 Lumbago with sciatica, left side (principal); M54.41 Lumbago with sciatica, right side; G89.29 Other chronic pain; R07.9 Chest pain, unspecified; R00.0 Tachycardia, unspecified; Z71.6 Tobacco abuse counseling; F17.210 Nicotine dependence, cigarettes, uncomplicated; E11.9 Type 2 diabetes mellitus without complications; F32.9 Major depressive disorder, single episode, unspecified; I10 Essential (primary) hypertension; K31.84 Gastroparesis; K58.9 Irritable bowel syndrome, unspecified; F79 Unspecified intellectual disabilities; E66.9 Obesity, unspecified; G47.33 Obstructive sleep apnea (adult) (pediatric); Z80.9 Family history of malignant neoplasm, unspecified; Z83.3 Family history of diabetes mellitus; Z82.49 Family history of ischemic heart disease and other diseases of the circulatory system; Z79.4 Long term (current) use of insulin; Z79.899 Other long term (current) drug therapy

== ENCOUNTER 2017-06-24 14:26 | Inpatient (IN) | payer OTHER ==
[~2017-06-24] VITALS: Ht 190.5 cm; Wt 130.7 kg
[~2017-06-24 14:26] MED LIST changes: +ARIP1TAB15 PO; -ARIP1TAB16 PO; -ARIP1TAB8 PO; -CYCL5TAB PO; +DICL1GEL12 TOP; +EFFSR150 PO; -EFFSR375 PO; +FLX/5 PO; -GABA1CAP PO; -GABA800T2 PO; +NRN400 PO; +NRN600 PO; +NVLGI/PEN SC; +ULT50 PO; -ULT50X PO; +VENL37.593 PO; -VLTG EXT
[2017-06-24 15:23] LABS: BASO % 0.8 %; BASO ABS # 0.06 K/uL (0-0.2); COMPLETE YES; IG% 0.4 %; LYMPH % 27.9 %; LYMPH ABS # 1.97 K/uL (1.2-3.4); MEAN CELL VOLUME 85.2 fL (80-100); MEAN CORPUSCULAR HEMOGLOBIN 29.3 pg (25-34); MEAN CORPUSCULAR HGB CONC 34.3 g/dl (32-36); MEAN PLATELET VOLUME 8.9 fL (7.4-10.4); MONO % 8.8 %; NEUT % 58.1 %; PLATELET COUNT 242 K/uL (130-400); WHITE BLOOD COUNT 7.06 K/uL (4.8-10.8)
--- NOTE | 2017-06-24 15:25 | EMERGENCY ROOM VISIT NOTE ---
History Report prepared by Marianela: Gaurang Geiger Under the Supervision of: Dr. Sohail Leon M.D. First contact with patient: 14:39 Chief Complaint: MENTAL HEALTH EVALUATION Stated Complaint: LOWER BACK PAIN/PSYCH History of Present Illness The patient is a 41 year old male who presents to the Emergency Room with complaints of chronic back pain leading to suicidal ideations that started earlier today. The patient states that he has fallen six times in the past weekend a half, and he states that he wants to be admitted to a facility, and if he does not, then he will kill himself. The patient was just discharged from [facility] two days ago. The patient states that he has tried to kill himself in the past by overdosing on pills. The patient states that he occasionally drinks beer, though not in 2 weeks. He states that he smokes cigarettes. The patient states that he feels hot, and he denies any urinary symptoms, continence , cough, or congestion. Source of History: patient Onset: this morning Position: other (global) Quality: other (suicidal ideation) Associated Symptoms: + back pain, No cough, No urinary symptoms Review of Systems See HPI for pertinent positives and negatives. A total of ten systems were reviewed and were otherwise negative. Past Medical & Surgical Medical Problems: (1) Depression (2) DM type 2 (diabetes mellitus, type 2) (3) Gastroparesis (4) HTN (hypertension) (5) IBS (irritable bowel syndrome) (6) Intellectual disability (7) Mental retardation (8) Nicotine dependence (9) NSVT (nonsustained ventricular tachycardia) (10) Obesity (11) Obstructive sleep apnea (12) Sepsis Surgical Problems: (1) S/P left knee arthroscopy (2) S/P tonsillectomy Social History Problems: (1) Alcohol abuse Family History Cancer Diabetes mellitus MOTHER GRANDMOTHER UNCLE AUNT Gallbladder disease Heart disease Hypertension MOTHER FATHER Lung disease Social History Smoking Status: Current Every Day Smoker Alcohol Use: heavy Drug Use: none Marital Status: Housing Status: lives with family Occupation Status: employed, other Current/Historical Medications Scheduled Aripiprazole (Aripiprazole), 10 MG PO HS Gabapentin (Gabapentin), 400 MG PO TID Gabapentin (Gabapentin), 600 MG PO TID Insulin Aspart (Novolog Flexpen), 1 DOSE SC PC Insulin Glargine (Lantus Solostar), 35 UNITS SC BID Venlafaxine Hcl (Effexor Extended Rel), 150 MG PO QAM Venlafaxine Hcl (Venlafaxine Extended Rel), 37.5 MG PO QAM Scheduled PRN Cyclobenzaprine HCl (Cyclobenzaprine HCl), 5 MG PO TID PRN for Muscle Spasm Diclofenac Sodium (Topical) (Voltaren 1% Top Gel), 1 APPLN TOP QID PRN for Pain Nicotine Polacrilex (Nicorelief), 1 PIECE MT PRN PRN for nicotine dependence cravings Tramadol HCl (Tramadol HCl), 25 MG PO Q8 PRN for Pain Allergies Coded Allergies: Cephalosporins (Verified Allergy, Unknown, CECLOR, 06/18/17) NSAIDs (Verified Adverse Reaction, Unknown, gastroparesis, kidney problems , 06/22/17) Physical Exam Vital Signs Date Time Temp Pulse Resp B/P (MAP) Pulse Ox O2 Delivery O2 Flow Rate FiO2 06/24/17 16:08 120 20 117/92 96 Room Air 06/24/17 14:40 37.1 124 18 126/77 95 Room Air Physical Exam GENERAL: Awake, alert, well-appearing, in no distress HENT: Dry mucous membranes. Normocephalic, atraumatic. Oropharynx unremarkable. EYES: Normal conjunctiva. Sclera non-icteric. NECK: Supple. No nuchal rigidity. FROM. No JVD. RESPIRATORY: Clear to auscultation. CARDIAC: Regular rate, normal rhythm. Extremities warm and well perfused. Pulses equal. ABDOMEN: Soft, non-distended. No tenderness to palpation. No rebound or guarding. No masses. RECTAL: Deferred. MUSCULOSKELETAL: Diffuse midline and paraspinal back tenderness in the T and L spine. No step offs. Chest examination reveals no tenderness. The back is symmetrical on inspection without obvious abnormality. There is no CVA tenderness to palpation. No joint edema. LOWER EXTREMITIES: Calves are equal size bilaterally and non-tender. No edema. No discoloration. NEURO: Motor and sensory intact in all extremities. Normal sensorium. No sensory or motor deficits noted. SKIN: No rash or jaundice noted. Medical Decision & Procedures Laboratory Results 06/24/17 15:08 Red Blood Count 5.40, Mean Corpuscular Volume 85.2, Mean Corpuscular Hemoglobin 29.3, Mean Corpuscular Hemoglobin Concent 34.3, Mean Platelet Volume 8.9, Neutrophils (%) (Auto) 58.1, Lymphocytes (%) (Auto) 27.9, Monocytes (%) (Auto) 8.8, Eosinophils (%) (Auto) 4.0, Basophils (%) (Auto) 0.8, Neutrophils # (Auto) 4.10, Lymphocytes # (Auto) 1.97, Monocytes # (Auto) 0.62, Eosinophils # (Auto) 0.28, Basophils # (Auto) 0.06 06/24/17 15:08 Test 06/24/17 15:05 06/24/17 15:08 Urine Color YELLOW Urine Appearance CLEAR (CLEAR) Urine pH 7.0 (4.5-7.5) Urine Specific Mitchell 1.021 (1.000-1.030) Urine Protein NEG (NEG) Urine Glucose (UA) TRACE (NEG) Urine Ketones NEG (NEG) Urine Occult Blood NEG (NEG) Urine Nitrite NEG (NEG) Urine Bilirubin NEG (NEG) Urine Urobilinogen NEG (NEG) Urine Leukocyte Esterase NEG (NEG) Urine Opiates Screen POS (NEG) Urine Methadone, Qualitative NEG (NEG) Urine Barbiturates NEG (NEG) Urine Phencyclidine (PCP) Level NEG (NEG) Ur Amphetamine/Methamphetamine NEG (NEG) MDMA (Ecstasy) Screen NEG (NEG) Urine Benzodiazepines Screen POS (NEG) Urine Cocaine Metabolite NEG (NEG) Urine Marijuana (THC) NEG (NEG) White Blood Count 7.06 K/uL (4.8-10.8) Red Blood Count 5.40 M/uL (4.7-6.1) Hemoglobin 15.8 g/dL (14.0-18.0) Hematocrit 46.0 % (42-52) Mean Corpuscular Volume 85.2 fL (80-100) Mean Corpuscular Hemoglobin 29.3 pg (25-34) Mean Corpuscular Hemoglobin Concent 34.3 g/dl (32-36) Platelet Count 242 K/uL (130-400) Mean Platelet Volume 8.9 fL (7.4-10.4) Neutrophils (%) (Auto) 58.1 % Lymphocytes (%) (Auto) 27.9 % Monocytes (%) (Auto) 8.8 % Eosinophils (%) (Auto) 4.0 % Basophils (%) (Auto) 0.8 % Neutrophils # (Auto) 4.10 K/uL (1.4-6.5) Lymphocytes # (Auto) 1.97 K/uL (1.2-3.4) Monocytes # (Auto) 0.62 K/uL (0.11-0.59) Eosinophils # (Auto) 0.28 K/uL (0-0.5) Basophils # (Auto) 0.06 K/uL (0-0.2) RDW Standard Deviation 41.7 fL (36.4-46.3) RDW Coefficient of Variation 13.4 % (11.5-14.5) Immature Granulocyte % (Auto) 0.4 % Immature Granulocyte # (Auto) 0.03 K/uL (0.00-0.02) Anion Gap 5.0 mmol/L (3-11) Est Creatinine Clear Calc Drug Dose 172.1 ml/min Estimated GFR () 126.2 Estimated GFR (Non- 108.9 BUN/Creatinine Ratio 13.7 (10-20) Calcium Level 9.0 mg/dl (8.5-10.1) Total Bilirubin 0.4 mg/dl (0.2-1) Direct Bilirubin < 0.1 mg/dl (0-0.2) Aspartate Amino Transf (AST/SGOT) 19 U/L (15-37) Alanine Aminotransferase (ALT/SGPT) 48 U/L (12-78) Alkaline Phosphatase 84 U/L (45-117) Total Protein 7.5 gm/dl (6.4-8.2) Albumin 3.6 gm/dl (3.4-5.0) Globulin 3.9 gm/dl (2.5-4.0) Albumin/Globulin Ratio 0.9 (0.9-2) Thyroid Stimulating Hormone (TSH) 0.620 uIu/ml (0.300-4.500) Ethyl Alcohol mg/dL < 3.0 mg/dl (0-3) Laboratory results reviewed by me Medications Administered Medications (Trade) Dose Ordered Sig/Mario Alberto Route Start Time Stop Time Status Last Admin Dose Admin Tramadol HCl (Ultram Tab) 50 mg NOW STAT PO 06/24/17 16:36 06/24/17 16:37 DC 06/24/17 16:47 50 MG Nicotine Polacrilex (Nicorette 2MG Gum) 1 piece PRN PRN MT 06/24/17 17:00 07/24/17 16:59 06/24/17 22:02 1 PIECE ED Course 1439: The patient was evaluated in room A7. A complete history and physical exam was performed. 1636: Ultram Tab 50mg PO 1721: I talked with [facility], and they are going to accept the patient for further mental health evaluation. Medical Decision I reviewed the patient's past medical history, medications, and the nursing notes as described above. Differential Diagnoses include: Suicidal ideations Patient is a 41-year-old gentleman with a past medical history of chronic back pain as well as history of suicidal ideation with psych admissions presents to emergency department for suicidal ideation after he said to rehabilitation intake staff that he was going to kill himself if he was not placed in their facility today history of present illness. Exam the patient is in no acute distress, afebrile with stable vital signs. Has diffuse back pain with exaggerated tenderness to palpation throughout. Motor and sensory normal in all 4 extremities. Given patient's endorsement of self-harm if he does not obtain rehabilitation admission, while his expression is in the attempt for secondary gain, in this patient with prior history of suicide attempts, I'm concerned that he will in fact attempt suicide if he is discharged. Thus, will perform labs for medical clearance and psychiatric admission. Labs unremarkable and thus the patient was medically cleared. Patient was accepted to [facility] for psych admission. Medication Reconcilliation Current Medication List: was personally reviewed by me Blood Pressure Screening Patient's blood pressure: Normal blood pressure Impression Primary Impression: Suicidal ideation Scribe Attestation The scribe's documentation has been prepared under my direction and personally reviewed by me in its entirety. I confirm that the note above accurately reflects all work, treatment, procedures, and medical decision making performed by me. Departure Information Dispostion Mental Health Acute Care Referrals Velasquez Valencia M.D. (PCP) Patient Instructions My [facility]
[2017-06-24 15:28] LABS: URINE APPEARANCE CLEAR (CLEAR); URINE BILIRUBIN NEG (NEG); URINE COLOR YELLOW; URINE NITRITE NEG (NEG); URINE SPECIFIC GRAVITY 1.021 (1.000-1.030); UROBILINOGEN NEG (NEG)
[2017-06-24 15:36] LABS: MANUAL MICROSCOPIC REQUIRED? NO; REVIEW REQ? NO
[2017-06-24 15:41] LABS: ALT/SGPT 48 U/L (12-78); AST/SGOT 19 U/L (15-37); BLOOD UREA NITROGEN 11 mg/dl (7-18); BUN/CREATININE RATIO 13.7 (10-20); CARBON DIOXIDE 28 mmol/L (21-32); CHLORIDE 105 mmol/L (98-107); CREATININE 0.81 mg/dl (0.60-1.40); GLUCOSE 134 mg/dl (70-99); POTASSIUM 3.8 mmol/L (3.5-5.1); SODIUM 138 mmol/L (136-145)
[2017-06-24 15:52] LABS: BENZODIAZEPINE, URINE POS (NEG); COCAINE,URINE NEG (NEG); PHENCYCLIDINE, URINE NEG (NEG)
[2017-06-24 15:52] LABS: ALB/GLOB RATIO 0.9 (0.9-2); ALKALINE PHOSPHATASE 84 U/L (45-117)
[2017-06-24] MEDS ORDERED: TRAMADOL HCL 50 MG TAB PO STA (16:36)
[2017-06-24] MEDS ORDERED: SODIUM CHLORIDE 0.65% NA SOLN 45 ML (OCEAN) PRN (17:00)
[2017-06-24] MEDS ORDERED: ALUMINUM/MAGNESIUM SUSP 30 ML UDC PO PRN (17:00)
[2017-06-24] MEDS ORDERED: hydrOXYzine HCL 25 MG TAB PO PRN ×2 (17:00)
[2017-06-24] MEDS ORDERED: BISMUTH SUBSALICYLATE PER ML OMNICELL CHARGE PO PRN (17:00)
[2017-06-24] MEDS ORDERED: PHARMACY GLYCEMIC MGMT CONSULT PRN (17:20)
[2017-06-24 17:29] VITALS: O2SAT 97
[2017-06-24 18:34] VITALS: BP 142/80; PULSE 120; TEMP 37.1; Ht 190.5 cm; Wt 130.7 kg
[2017-06-24] MEDS: ARIPIprazole TAB 10 MG TAB PO SCH (21:51)
[2017-06-24] MEDS: GABAPENTIN 400 MG CAP PO SCH (21:52)
[2017-06-24] MEDS: GABAPENTIN 600 MG TAB PO SCH (21:52)
[2017-06-24] MEDS: INSULIN GLARGINE SOLOSTAR 100 UNITS/ML 3 ML PEN SC SCH (21:53)
[2017-06-24] MEDS: INSULIN ASPART 100 UNITS/ML 3 ML PEN SC SCH (21:55)
[2017-06-24] MEDS: NICOTINE POLACRILEX 2 MG GUM MT PRN (22:02)
[2017-06-25] MEDS: TRAMADOL HCL 50 MG TAB PO PRN (02:10)
[2017-06-25 06:44] VITALS: BP_SYST 117; BP_SYST 143; BP_DIAS 76; BP_DIAS 85; PULSE 89; PULSE 93; TEMP 36.6
[2017-06-25] MEDS: VENLAFAXINE HCL XR 150 MG CAPXR PO SCH (09:08)
[2017-06-25] MEDS: GABAPENTIN 400 MG CAP PO SCH ×3 (09:09→21:12)
[2017-06-25] MEDS: NICOTINE POLACRILEX 2 MG GUM MT PRN ×3 (09:09→17:51)
[2017-06-25] MEDS: VENLAFAXINE HCL XR 37.5 MG CAPXR PO SCH (09:09)
[2017-06-25] MEDS: GABAPENTIN 600 MG TAB PO SCH ×3 (09:09→21:12)
[2017-06-25] MEDS: INSULIN ASPART 100 UNITS/ML 3 ML PEN SC SCH ×4 (09:13→21:16)
[2017-06-25] MEDS: INSULIN GLARGINE SOLOSTAR 100 UNITS/ML 3 ML PEN SC SCH ×2 (09:14→21:14)
[2017-06-25] MEDS: DICLOFENAC SOD 1% GEL 100 GM TUBE EXT PRN ×2 (09:20→21:12)
--- NOTE | 2017-06-25 11:28 | Psychiatric History & Physical ---
Psychiatric History & Physical Date of Service: Jun 25, 2017. Identifying Data Bry Akhtar is a 41-year-old male who currently lives in [place] with family , has a history of recurrent depression and chronic pain who presented to the ER with pain and endorsed SI. He was admitted on a 201 voluntary commitment. Chief Complaint "can you give me a new body?". History of Present Illness Patient was just discharged from the mental health unit following admission from 06/18-06/22. He was evaluated by [facility] but did not understand if he could/couldn't be admitted inpatient. He became frustrated and was unable to safety plan. He made similar statements/threats to OD on "all" of his medication if he wasn 't readmitted and he is viewed high risk given loss, medical co-morbidities and intellectual disabilities. He is frustrated with his medical condition but denies vegetative symptoms. During his recent stay his Abilify was decreased to 10 mg on a trial basis given him complaints of muscle twitching and pharmacy was consulted to manage his diabetes regimen. He was seen by PT but services limited as holiday weekend. He states his primary stressor is pain, but also in 06/2016 from leukemia, and he has financial strain, is unemployed, and is trying to get disability. Past Psychiatric History Current OP Treatment: psychiatrist (Dr. Vargas at [facility]), therapist (Prasanth), nurse case manager (Dvae) Prior Psych Hospitalizations: [facility] (multiple--April and Jun 2017 most recent), other Access to a Gun: No Suicide Attempts: No (But had a bottle of pills in his hand in March and was thinking of overdosing on them.) Past Medication Trials mirtazapine lithium - toxicity quetiapine others he cannot recall Additional Notes Diagnosed with recurrent depression Past Medical/Surgical History (1) NSVT (nonsustained ventricular tachycardia) (2) Chronic low back pain (3) HTN (hypertension) (4) DM type 2 (diabetes mellitus, type 2) (5) IBS (irritable bowel syndrome) Allergies Allergies: Coded Allergies: Cephalosporins (Verified Allergy, Unknown, AR, 05/12/17) Home Medications Reported Home Medications Medications Dose Route/Sig Max Daily Dose Days Date Category Dose Instructions Voltaren 1% Top Gel (Diclofenac Sodium (Topical)) 1 % Gel 1 Appln TOP QID PRN 06/22/17 Reported Tramadol HCl 50 Mg Tab 25 Mg PO Q8 PRN 06/22/17 Reported Cyclobenzaprine HCl 5 Mg Tab 5 Mg PO TID PRN 06/22/17 Reported Aripiprazole 10 Mg Tab 10 Mg PO HS 06/22/17 Reported Venlafaxine Extended Rel (Venlafaxine Hcl) 37.5 Mg Cap 37.5 Mg PO QAM 06/22/17 Reported TAKE ONE 37.5 MG CAPSULE ALONG WITH ONE 150 MG CAPSULE TO EQUAL 187.5 MG DAILY DOSE Gabapentin 600 Mg Tab 600 Mg PO TID 06/22/17 Reported TAKE ONE 600 MG TABLET ALONG WITH ONE 400 MG TABLET TO EQUAL 1000 MG DOSE Gabapentin 400 Mg Cap 400 Mg PO TID 06/22/17 Reported TAKE ONE 400 MG TABLET ALONG WITH ONE 600 MG TABLET TO EQUAL 1000 MG DOSE Nicorelief (Nicotine Polacrilex) 1 Piece Gum 1 Piece MT PRN PRN 14 06/22/17 Rx Lantus Solostar (Insulin Glargine) 100 Unit/Ml Inj 35 Units SC BID 06/14/17 Reported Novolog Flexpen (Insulin Aspart) 100 Units/Ml Inj 1 Dose SC PC 04/18/17 Reported COVERAGE DIRECTED BY SLIDING SCALE Effexor Extended Rel (Venlafaxine Hcl) 150 Mg Capcr 150 Mg PO QAM 04/18/17 Reported TAKE ONE 150 MG CAPSULE ALONG WITH ONE 37.5 MG CAPSULE TO EQUAL 187.5 MG DAILY DOSE Family History Cancer Diabetes mellitus MOTHER GRANDMOTHER UNCLE AUNT Gallbladder disease Heart disease Hypertension MOTHER FATHER Lung disease History of Suicide: No History of Substance Abuse: Yes (paternal uncle alcoholic) Psychiatric History: Yes (Brother has unclear "psych problems," and uncle "thinks he's a different person each week, he's in a state institution," nephew with ADHD "and his mom thinks he's bipolar.") Alcohol Use Alcohol Use In Past 12 Months: Yes--12 beers per week Smoking Use Smoking Status: Current Every Day Smoker 2 PPD Substance History Denies illicit drug use in years. Remote history of cannabis at age 25. Used PCP or marijuana at age 4 when older cousin gave it to him. Personal History Lives in: [facility] with multiple family members Childhood: 2 younger siblings Education: graduated from high school (has some credits from [employer]) Work History: Unemployed and applied for disability (appealing after 1 denial). 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 Last worked in 2015 and says he is on medical leave. Relationship History: ( in 06/2016) Children: none Spiritual Affiliation: [employer] Legal History: none Psychological Trauma History: Significant Loss, Other (Denies abuse.) Review of Systems 10 systems reviewed, positive for back and knee pain, others negative except as stated above. Examination Physical Examination A physical exam was performed in the ER prior to admission to the unit. I accept that physical as correct/medical clearance for the inpatient physical exam. Vital Signs Vital Signs Date Time Temp Pulse Resp B/P (MAP) Pulse Ox O2 Delivery O2 Flow Rate FiO2 06/25/17 06:44 36.6 89 18 143/85 93 117/76 06/24/17 18:34 37.1 120 20 142/80 06/24/17 17:29 125 97 Room Air 06/24/17 16:08 120 20 117/92 96 Room Air 06/24/17 14:40 37.1 124 18 126/77 95 Room Air Laboratory Results Last 24 Hours Test 06/24/17 15:05 06/24/17 15:08 06/24/17 20:24 06/25/17 08:10 Urine Color YELLOW Urine Appearance CLEAR Urine pH 7.0 Urine Specific [place] 1.021 Urine Protein NEG Urine Glucose (UA) TRACE Urine Ketones NEG Urine Occult Blood NEG Urine Nitrite NEG Urine Bilirubin NEG Urine Urobilinogen NEG Urine Leukocyte Esterase NEG Bedside Glucose 143 mg/dl 202 mg/dl 122 mg/dl Urine Opiates Screen POS Urine Methadone, Qualitative NEG Urine Barbiturates NEG Urine Phencyclidine (PCP) Level NEG Ur Amphetamine/Methamphetamine NEG MDMA (Ecstasy) Screen NEG Urine Benzodiazepines Screen POS Urine Cocaine Metabolite NEG Urine Marijuana (THC) NEG White Blood Count 7.06 K/uL Red Blood Count 5.40 M/uL Hemoglobin 15.8 g/dL Hematocrit 46.0 % Mean Corpuscular Volume 85.2 fL Mean Corpuscular Hemoglobin 29.3 pg Mean Corpuscular Hemoglobin Concent 34.3 g/dl Platelet Count 242 K/uL Mean Platelet Volume 8.9 fL Neutrophils (%) (Auto) 58.1 % Lymphocytes (%) (Auto) 27.9 % Monocytes (%) (Auto) 8.8 % Eosinophils (%) (Auto) 4.0 % Basophils (%) (Auto) 0.8 % Neutrophils # (Auto) 4.10 K/uL Lymphocytes # (Auto) 1.97 K/uL Monocytes # (Auto) 0.62 K/uL Eosinophils # (Auto) 0.28 K/uL Basophils # (Auto) 0.06 K/uL RDW Standard Deviation 41.7 fL RDW Coefficient of Variation 13.4 % Immature Granulocyte % (Auto) 0.4 % Immature Granulocyte # (Auto) 0.03 K/uL Sodium Level 138 mmol/L Potassium Level 3.8 mmol/L Chloride Level 105 mmol/L Carbon Dioxide Level 28 mmol/L Anion Gap 5.0 mmol/L Blood Urea Nitrogen 11 mg/dl Creatinine 0.81 mg/dl Est Creatinine Clear Calc Drug Dose 172.1 ml/min Estimated GFR () 126.2 Estimated GFR (Non- 108.9 BUN/Creatinine Ratio 13.7 Random Glucose 134 mg/dl Calcium Level 9.0 mg/dl Total Bilirubin 0.4 mg/dl Direct Bilirubin < 0.1 mg/dl Aspartate Amino Transf (AST/SGOT) 19 U/L Alanine Aminotransferase (ALT/SGPT) 48 U/L Alkaline Phosphatase 84 U/L Total Protein 7.5 gm/dl Albumin 3.6 gm/dl Globulin 3.9 gm/dl Albumin/Globulin Ratio 0.9 Thyroid Stimulating Hormone (TSH) 0.620 uIu/ml Ethyl Alcohol mg/dL < 3.0 mg/dl Mental Examination During interview pt is: alert and oriented, cooperative Appearance: appropriately dressed Eye contact is: good Motor behavior is: steady gait & station, has muscle twitches of thighs ( increase with pain) Speech: loud Affect: mood congruent Mood is: "frustrated" Thought process: goal directed, concrete Thought content: reality based without delusions Suicidal thought are: denied (but admits that he was suicidal last night, and was thinking of overdosing on his prescription medications) Homicidal thoughts are: denied Hallucinations: denies auditory, denies visual Cognition: attention grossly intact, language grossly intact, other (memory impaired for historical events) Intelligence estimated to be: below average Insight: impaired Judgement: impaired Impression / Recommendations Impression 41-year-old white male with multiple medical problems including obesity , diabetes, hyperlipidemia, and chronic pain as well as recurrent depression who presents with suicidality in the context of chronic pain and multiple psychosocial stressors. Inventory Assets Strengths: supportive family, has outpatient providers Risk Factors Assessment Male: Yes : Yes /single/: Yes Higher / Fall in social status: No Access to guns: No Health problems: Yes Mental Health Diagnoses: Yes Substance use disorders: Yes Previous attempt: No Family history of suicide: No Previous psychiatric stay: Yes Hopelessness: Yes Smoker: Yes Protective Factors Assessment Advent beliefs: Yes : No Responsible for young children: No Employed: No Supportive family: Yes Good rapport with provider: Yes Recommendations The patient is admitted to [facility] ([facility] inpatient mental health unit) on q 15 min checks (behavioral with suicide precautions) for safety. The patient will participate in group, recreational and milieu therapies and will be offered additional individual and family sessions as clinically appropriate. major depressive disorder, recurrent; ?prior history bipolar II continue home medications, consider taper of Effexor XR as I'm wondering if twitching could also be related to side effect and/or discontinuation syndrome if misses doses in/out of various ED visits. Chronic pain/neuropathy continue home medications, ?Cymbalta candidate (would need to cross taper from Effexor XR), reconsult PT DM type 2 (diabetes mellitus, type 2) continue home insulin regimen, monitor blood sugar, and consult diabetic pharmacist. Nicotine dependence Offered nicotine patch as needed for cravings. Patient was educated about the risks of ongoing nicotine use, and encouraged to consider cutting back or quitting. He is pre-contemplative. Brief intervention was >5 min. CPT Code Initial Hospital Care: 22070
[2017-06-25] MEDS: ACETAMINOPHEN 325 MG TAB PO PRN (12:19)
--- NOTE | 2017-06-25 14:13 | Pharmacy Progress Note ---
Glycemic Control Intl Consult Date of Service Jun 25, 2017. Scope Glycemic Pharmacist consulted by Jeff Silva on 06/24/17 for glycemic control and to write orders per [facility] inpatient glycemic control protocol Objective Weight (Kilograms): 130.700 Accuchecks BSG (last 24hrs): Test 06/24/17 15:05 06/24/17 15:08 06/24/17 20:24 06/25/17 08:10 Bedside Glucose 143 mg/dl (70-99) 202 mg/dl (70-99) 122 mg/dl (70-99) Random Glucose 134 mg/dl (70-99) Test 06/25/17 12:22 Bedside Glucose 139 mg/dl (70-99) Laboratory Data (last 24hrs) Test 06/24/17 15:08 Anion Gap 5.0 mmol/L BUN/Creatinine Ratio 13.7 Blood Urea Nitrogen 11 mg/dl Creatinine 0.81 mg/dl Potassium Level 3.8 mmol/L Sodium Level 138 mmol/L White Blood Count 7.06 K/uL Red Blood Count 5.40 M/uL Hemoglobin 15.8 g/dL Hematocrit 46.0 % Mean Corpuscular Volume 85.2 fL Mean Corpuscular Hemoglobin 29.3 pg Mean Corpuscular Hemoglobin Concent 34.3 g/dl Platelet Count 242 K/uL Mean Platelet Volume 8.9 fL Neutrophils (%) (Auto) 58.1 % Lymphocytes (%) (Auto) 27.9 % Monocytes (%) (Auto) 8.8 % Eosinophils (%) (Auto) 4.0 % Basophils (%) (Auto) 0.8 % Neutrophils # (Auto) 4.10 K/uL Lymphocytes # (Auto) 1.97 K/uL Monocytes # (Auto) 0.62 K/uL Eosinophils # (Auto) 0.28 K/uL Basophils # (Auto) 0.06 K/uL Recent Pertinent Medications Outpatient Anti-diabetic Regimen: * Lantus 35 units BID * Novolog per sliding scale * A1c = 7.8 % 03/21/17 The patient is currently receiving: * Basal insulin: Lantus 35 units every 12 hours * Correctional Insulin: Novolog Correction per scale ACHS Goal Range: Low 110 mg/dL - High 140 mg/dL Correction Factor: 15 mg/dL/unit * Prandial insulin: Per carb ratio of 1 unit per 4 grams CHO consumed Risk Factors for Insulin Resistance: * No major risk factors Assessment & Plan ASSESSMENT: * 41 y/o male well known to the pharmacy glycemic service, admitted 9/7 PM * Patient placed on regimen similar to previous admissions and seems to be tolerating well * No major stressors are on board at this time * ADA & AACE recommend a goal blood sugar range 140-180 mg/dl for the majority of critically ill & non-critically ill patients. However, more stringent targets may be selected in individual cases. Will utilize more stringent goal of 110-140mg/dl based on patient age & comorbidities. Additionally, tighter glycemic control is warranted to facilitate wound/infection healing. PLAN FOR INPATIENT GLYCEMIC CONTROL: * Continue insulin regimen as ordered DISCHARGE RECOMMENDATIONS: * Most recent A1c reasonable, resume outpatient regimen upon discharge Thank you.
[2017-06-25] MEDS: ARIPIprazole TAB 10 MG TAB PO SCH (21:12)
[2017-06-26 06:38] VITALS: BP_SYST 149; BP_SYST 155; BP_DIAS 85; BP_DIAS 93; PULSE 90; PULSE 93; TEMP 36.4
[2017-06-26] MEDS: GABAPENTIN 600 MG TAB PO SCH ×3 (09:06→21:37)
[2017-06-26] MEDS: GABAPENTIN 400 MG CAP PO SCH ×3 (09:06→21:38)
[2017-06-26] MEDS: VENLAFAXINE HCL XR 150 MG CAPXR PO SCH (09:06)
[2017-06-26] MEDS: VENLAFAXINE HCL XR 37.5 MG CAPXR PO SCH (09:06)
[2017-06-26] MEDS: INSULIN GLARGINE SOLOSTAR 100 UNITS/ML 3 ML PEN SC SCH ×2 (09:08→21:39)
[2017-06-26] MEDS: INSULIN ASPART 100 UNITS/ML 3 ML PEN SC SCH ×4 (09:18→21:43)
[2017-06-26] MEDS: DICLOFENAC SOD 1% GEL 100 GM TUBE EXT PRN (09:33)
[2017-06-26] MEDS: NICOTINE POLACRILEX 2 MG GUM MT PRN ×4 (09:33→21:43)
--- NOTE | 2017-06-26 11:16 | Psychiatric Progress Notes ---
Progress Note Date of Service Jun 26, 2017. Chief Complaint "I don't want to but I can't live with this pain and the falls.". Subjective Patient was seen & assessed interval progress reviewed with Treatment Team. Pt did attend groups. Has been ref for physical therapy while here. No med changes at time of readmission. Compliant with medications. On interview, pt describes abrupt suicidality 2/2 frustration and pain. States he fell 6 times in last week prior to admission and cannot believe that the hospital does not want to help him for that. He states he does not want to and denies SI today but implies that he would not be safe if he were discharged without help. He comments that a friend of his was upset that he was in the hospital so much. "She said I know just what to say to get in." Reviewed he has been on the Effexor only since March. Believe it has been a little helpful for mood. Denies that it has made his tremors worse or more dizzy. Review of Systems Constitutional: + weakness Musculoskeletal: + problem reported (back pain) Neurologic: + weakness, + problem reported (falls) Sleep Information Total Hours of Sleep: 7.75 Meal Information Percent of Breakfast Consumed: 100 Percent of Lunch Consumed: 100 Percent of Dinner Consumed: 100 Mental Status Exam During interview pt is: cooperative Appearance: appropriately dressed, disheveled Eye contact is: good Motor behavior is: other (high frequency low ampliture positional tremor of extremities. diffuse occasional myoclonic jerks in upper and lower extremities) Speech: other (articulation is imprecise) Affect: irritable Mood is: irritable Thought process: goal directed, concrete Suicidal thought are: denied (but unsafe outside of hospital) Homicidal thoughts are: denied Hallucinations: denies auditory, denies visual Intelligence estimated to be: below average Insight: limited Judgement: limited Plan (1) Depression 06/25 major depressive disorder, recurrent; ?prior history bipolar II continue home medications, consider taper of Effexor XR as I'm wondering if twitching could also be related to side effect and/or discontinuation syndrome if misses doses in/out of various ED visits Nicotine dependence Offered nicotine patch as needed for cravings. Patient was educated about the risks of ongoing nicotine use, and encouraged to consider cutting back or quitting. He is pre-contemplative. Brief intervention was >5 min. 06/26 - will cross taper effexor xr 187.5mg to cymbalta over a few days to see if we can improve pain benefit which is impacting mood. will reduce effexor to 75mg po qpm tomorrow, then 37.5mg x1 day, then d/c. he will start cymbalta 30mg po qam tomorrow, then increase to 60mg po qam and will consider further titration pending need and tolerability. common risks/benefits reviewed w/ pt. he was informed of possible discontinuation sx in coming off effexor and will need to watch for s/o serotonin excess during cross taper. (2) Intellectual disability chronic (3) Lumbago 06/26 - cymbalta trial for pain benefit as above - PT consult pending Discharge / Aftercare Planning Primary Care Physician: Name: Dr. Valencia Date of Appointment: Jul 05, 2017 Time of Appointment: 12:45pm [facility] Date of [facility]: Jul 08, 2017 Time of Appointment: 9:45am Therapist: [facility] Date of Appointment: Jun 30, 2017 Time of Appointment: 11:30am Power Equipment Mechanics Instructor: Name: Norma De Oliveira [facility] Appointment Notes: Every Partial or Psych Rehab: Name: [facility] Appointment Notes: Resume attending Mon,, and Wed schedule. Auto Service Instructor: Name: Suraj Irwin Phone Number: Other: Name of Appointment #1: [place] Date of Appointment #1: Jul 02, 2017 Time of Appointment #1: 1:15pm Visit Code E&M Code: 73346 Protective Factors Assessment Employed: No Data Vital Signs Last 24 Hrs: Date Time Temp Pulse Resp B/P (MAP) Pulse Ox O2 Delivery O2 Flow Rate FiO2 06/26/17 06:38 36.4 90 18 149/93 93 155/85 Meds Administered Last 24 Hrs: Meds Administered (Past 24Hrs) Medications (Trade) Dose Ordered Sig/Mario Alberto Route Start Time Stop Time Status Last Admin Dose Admin Tramadol HCl (Ultram Tab) 50 mg NOW STAT PO 06/24/17 16:36 06/24/17 16:37 DC 06/24/17 16:47 50 MG Acetaminophen (Tylenol Tab) 650 mg Q4H PRN PO 06/24/17 17:00 07/24/17 16:59 06/25/17 12:19 650 MG Aripiprazole (Abilify Tab) 10 mg HS PO 06/24/17 21:00 07/24/17 20:59 06/25/17 21:12 10 MG Diclofenac Sodium (Voltaren 1% Top Gel) 1 appln QID PRN EXT 06/24/17 17:00 07/24/17 16:59 06/26/17 09:33 1 APPLN Gabapentin (Neurontin Cap) 400 mg TID PO 06/24/17 21:00 07/24/17 20:59 06/26/17 09:06 400 MG Gabapentin (Neurontin Tab) 600 mg TID PO 06/24/17 21:00 07/24/17 20:59 06/26/17 09:06 600 MG Insulin Glargine (Lantus Solostar Pen) 35 units BID SC 06/24/17 21:00 07/24/17 20:59 06/26/17 09:08 35 UNITS Nicotine Polacrilex (Nicorette 2MG Gum) 1 piece PRN PRN MT 06/24/17 17:00 07/24/17 16:59 06/26/17 09:33 1 PIECE Tramadol HCl (Ultram Tab) 25 mg Q8 PRN PO 06/24/17 17:00 07/24/17 16:59 06/25/17 02:10 25 MG Venlafaxine HCl (effeXOR EXTENDED REL CAP) 150 mg QAM PO 06/25/17 09:00 07/25/17 08:59 06/26/17 09:06 150 MG Venlafaxine HCl (effeXOR EXTENDED REL CAP) 37.5 mg QAM PO 06/25/17 09:00 07/25/17 08:59 06/26/17 09:06 37.5 MG Insulin Aspart (novoLOG ASPART) SLIDING SCALE ACHS SC 06/24/17 21:00 07/24/17 20:59 06/26/17 09:18 20 UNITS Lab Results Last 24 Hrs: Last 24 Hours Test 06/25/17 12:22 06/25/17 17:23 06/25/17 20:40 06/26/17 08:30 Bedside Glucose 139 mg/dl 117 mg/dl 163 mg/dl 171 mg/dl Problem Qualifiers (1) Depression: Major depression recurrence: recurrent Active/Remission status: currently active Major depression episode severity: severe Psychotic features: without psychotic features
[2017-06-26] MEDS: ACETAMINOPHEN 325 MG TAB PO PRN (11:22)
--- NOTE | 2017-06-26 12:54 | Pharmacy Progress Note ---
Glycemic: Assessment & Plan Date of Service Jun 26, 2017. Assessment & Plan The patient is currently receiving 133 units of insulin per day. BSGs ranging 117 - 177 mg/dl over the past 24hrs. * Basal insulin: Lantus 35 units every 12 hours * Correctional Insulin: Novolog Correction per scale ACHS Goal Range: Low 110 mg/dL - High 140 mg/dL Correction Factor: 15 mg/dL/unit * Prandial insulin: Per carb ratio of 1 unit per 4 grams CHO consumed ASSESSMENT: * Fasting BSG increased this AM - will increase basal by ~10% PLAN FOR INPATIENT GLYCEMIC CONTROL: * Increase Lantus to 38 units BID Pharmacy will continue to monitor patient daily and write orders per [facility] inpatient glycemic control protocol. Thanks. * Please note that the plan above was derived based on current level of insulin resistance and hospital stress. These recommendations are appropriate for inpatient admission only. Plan of care upon discharge will need to be reassessed to avoid potential outpatient hypo/hyperglycemia.
[2017-06-26] MEDS: TRAMADOL HCL 50 MG TAB PO PRN (19:07)
[2017-06-26] MEDS: ARIPIprazole TAB 10 MG TAB PO SCH (21:38)
[2017-06-27 06:39] VITALS: BP_SYST 139; BP_SYST 153; BP_DIAS 86; BP_DIAS 99; PULSE 105; PULSE 93; TEMP 36.4
[2017-06-27] MEDS: INSULIN GLARGINE SOLOSTAR 100 UNITS/ML 3 ML PEN SC SCH ×2 (08:50→21:32)
[2017-06-27] MEDS: DULOXETINE (CYMBALTA) 30 MG CAP PO SCH (08:51)
[2017-06-27] MEDS: GABAPENTIN 400 MG CAP PO SCH ×3 (08:51→21:26)
[2017-06-27] MEDS: GABAPENTIN 600 MG TAB PO SCH ×3 (08:51→21:26)
[2017-06-27] MEDS: INSULIN ASPART 100 UNITS/ML 3 ML PEN SC SCH ×4 (08:55→21:36)
[2017-06-27] MEDS: NICOTINE POLACRILEX 2 MG GUM MT PRN ×3 (08:56→17:46)
[2017-06-27] MEDS: DICLOFENAC SOD 1% GEL 100 GM TUBE EXT PRN ×2 (08:57→22:39)
--- NOTE | 2017-06-27 10:22 | Psychiatric Progress Notes ---
Progress Note Date of Service Jun 27, 2017. Chief Complaint "I'm about the same, but I wanted to tell you that my leg locked up last night". Subjective Patient was seen & assessed interval progress reviewed with Treatment Team. Per staff, patient was visited by physical therapy yesterday. TENS unit recommended. Did not feel that the patient met criteria for inpatient rehabilitation. [facility] will be evaluating patient for outpatient rehabilitation. No falls overnight. Patient did complain of leg walking up last evening which he mentions again today. Consider possibility that he is having more falls at home secondary to unstable foundation that he is walking on in his fifth will trailer in which he lives. He reports mood is the same. Continues to state that he will not be safe to discharge until he receives therapy for his falls. He began the Effexor to Cymbalta and cross taper this morning and so far tolerating well. Review of Systems Musculoskeletal: + problem reported (reports ambulatory dysfunction) Sleep Information Total Hours of Sleep: 6.75 Meal Information Percent of Breakfast Consumed: 100 Percent of Lunch Consumed: 100 Percent of Dinner Consumed: 100 Mental Status Exam During interview pt is: cooperative Appearance: appropriately dressed, disheveled Eye contact is: good Motor behavior is: other (high frequency low ampliture positional tremor of extremities. diffuse occasional myoclonic jerks in upper and lower extremities) Speech: other (articulation is imprecise) Affect: other (calm) Mood is: other (the same) Thought process: goal directed, concrete Suicidal thought are: denied (but unsafe outside of hospital) Homicidal thoughts are: denied Hallucinations: denies auditory, denies visual Intelligence estimated to be: below average Insight: limited Judgement: limited Plan (1) Depression 06/25 major depressive disorder, recurrent; ?prior history bipolar II continue home medications, consider taper of Effexor XR as I'm wondering if twitching could also be related to side effect and/or discontinuation syndrome if misses doses in/out of various ED visits Nicotine dependence Offered nicotine patch as needed for cravings. Patient was educated about the risks of ongoing nicotine use, and encouraged to consider cutting back or quitting. He is pre-contemplative. Brief intervention was >5 min. 06/26 - will cross taper effexor xr 187.5mg to cymbalta over a few days to see if we can improve pain benefit which is impacting mood. will reduce effexor to 75mg po qpm tomorrow, then 37.5mg x1 day, then d/c. he will start cymbalta 30mg po qam tomorrow, then increase to 60mg po qam and will consider further titration pending need and tolerability. common risks/benefits reviewed w/ pt. he was informed of possible discontinuation sx in coming off effexor and will need to watch for s/o serotonin excess during cross taper. 06/27 - Continue with 3 day cross taper from Effexor to Cymbalta. Will consider further titration of Cymbalta pending need and tolerability. Patient reminded that it may take several weeks for new medication to show additional therapeutic efficacy. (2) Intellectual disability chronic (3) Lumbago 06/26 - cymbalta trial for pain benefit as above - PT consult pending 06/27 - Patient not felt to be a candidate for inpatient rehabilitation presently. PT plans to revisit Wednesday Discharge / Aftercare Planning Primary Care Physician: Name: Dr. Valencia Date of Appointment: Jul 05, 2017 Time of Appointment: 12:45pm [facility] Date of Appointment: Jul 08, 2017 Time of Appointment: 9:45am Therapist: Name: [facility]api [facility] Date of Appointment: Jun 30, 2017 Time of Appointment: 11:30am Snath Handle Assembler: Name: Norma De Oliveira [facility] Appointment Notes: Every Partial or Psych Rehab: Name: [facility] Appointment Notes: Resume attending Wed,, and Wed schedule. Field Marketing Specialist: Name: Suraj Irwin Phone Number: Other: Name of Appointment #1: Sarah Date of Appointment #1: Jul 02, 2017 Time of Appointment #1: 1:15pm Visit Code E&M Code: 75663 Protective Factors Assessment Employed: No Data Vital Signs Last 24 Hrs: Date Time Temp Pulse Resp B/P (MAP) Pulse Ox O2 Delivery O2 Flow Rate FiO2 06/27/17 06:39 36.4 93 16 153/99 105 139/86 Meds Administered Last 24 Hrs: Meds Administered (Past 24Hrs) Medications (Trade) Dose Ordered Sig/Mario Alberto Route Start Time Stop Time Status Last Admin Dose Admin Duloxetine HCl (Cymbalta Cap) 30 mg Taper QAM PO 06/27/17 09:00 07/28/17 08:59 06/27/17 08:51 30 MG Insulin Glargine (Lantus Solostar Pen) 38 units BID SC 06/26/17 22:00 07/26/17 21:59 06/27/17 08:50 38 UNITS Lab Results Last 24 Hrs: Last 24 Hours Test 06/26/17 12:21 06/26/17 17:11 06/26/17 20:31 06/27/17 07:53 Bedside Glucose 177 mg/dl 127 mg/dl 159 mg/dl 136 mg/dl Problem Qualifiers (1) Depression: Major depression recurrence: recurrent Active/Remission status: currently active Major depression episode severity: severe Psychotic features: without psychotic features
[2017-06-27] MEDS: TRAMADOL HCL 50 MG TAB PO PRN (16:33)
[2017-06-27] MEDS ORDERED: VENLAFAXINE HCL XR 37.5 MG CAPXR PO SCH (21:00)
[2017-06-27] MEDS: ARIPIprazole TAB 10 MG TAB PO SCH (21:25)
[2017-06-27] MEDS: ACETAMINOPHEN 325 MG TAB PO PRN (21:36)
[2017-06-28 07:01] VITALS: BP_SYST 129; BP_SYST 133; BP_DIAS 83; BP_DIAS 84; PULSE 102; PULSE 103; TEMP 36.5
[2017-06-28] MEDS: DULOXETINE (CYMBALTA) 30 MG CAP PO SCH (08:56)
[2017-06-28] MEDS: GABAPENTIN 400 MG CAP PO SCH ×2 (08:56→14:07)
[2017-06-28] MEDS: GABAPENTIN 600 MG TAB PO SCH ×2 (08:56→14:07)
--- NOTE | 2017-06-28 09:06 | Pharmacy Progress Note ---
Glycemic Control Progress Note Date of Service Jun 28, 2017. Scope Glycemic Pharmacist consulted for glycemic control to write orders per [facility] inpatient glycemic control protocol. Objective Accuchecks BSG (last 24hrs): Test 06/27/17 11:31 06/27/17 17:11 06/27/17 20:39 06/28/17 08:43 Bedside Glucose 174 mg/dl (70-99) 155 mg/dl (70-99) 134 mg/dl (70-99) 134 mg/dl (70-99) Recent Pertinent Medications The patient is currently receiving: * Basal insulin: Lantus 38 units every 12 hours * Correctional Insulin: Novolog Correction per scale ACHS Goal Range: Low 110 mg/dL - High 140 mg/dL Correction Factor: 15 mg/dL/unit * Prandial insulin: Per carb ratio of 1 unit per 4 grams CHO consumed Outpatient Anti-Diabetic Meds Lantus 35 units twice daily Novolog per sliding scale Assessment & Plan ASSESSMENT: * See progress note from 06/25/17 for more background info, in short: * Pt receiving SQ basal bolus insulin regimen for hyperglycemia secondary to baseline DM (outpatient regimen on hold). Patient is on a type 2 diabetic diet. * Patient is currently receiving an average of 130 units of insulin per day * 76 units of basal insulin * 54 units of prandial/correctional insulin * BSGs ranging 134 - 174 mg/dl over the past 24hrs * Changes needed to insulin regimen: * AM Fasting BSG = 134 mg/dl. This is within goal range for patient based on inpatient targets and co-morbidities. Therefore Basal insulin will be continued * Post-prandial BSGs are in range therefore no changes needed to CF/CR. * Total daily dose = 130 units. This dosing is yielding adequate glycemic control so will continue. PLAN FOR INPATIENT GLYCEMIC CONTROL: * Continuing Lantus 38 units SQ BID * Continuing correction factor of 15 mg/dl/unit * Continuing carb ratio of 1 unit per 4 grams CHO consumed * Continuing goal range to Low 110 mg/dL - High 140 mg/dL RECOMMENDATIONS FOR DISCHARGE: * see note from 06/25/17, continue home regimen * Please note that the plan above was derived based on current level of insulin resistance and hospital stress. These recommendations are appropriate for inpatient admission only. Plan of care upon discharge will need to be reassessed to avoid potential outpatient hypo/hyperglycemia. Thank you.
[2017-06-28] MEDS: INSULIN GLARGINE SOLOSTAR 100 UNITS/ML 3 ML PEN SC SCH (09:52)
[2017-06-28] MEDS: INSULIN ASPART 100 UNITS/ML 3 ML PEN SC SCH ×2 (09:54→12:54)
[2017-06-28] MEDS ORDERED: VENL37.593 PO (11:14)
[2017-06-28] MEDS ORDERED: CYM30 PO (11:14)
--- NOTE | 2017-06-28 11:16 | Discharge Instructions ---
Discharge Information Report Includes Report will include the: Discharge Instructions & Summary Admission Admission Date / Time: Jun 24, 2017 at 17:07 Reason for Admission: Major Depressive Disorder, Recurrent Discharge Discharge Diagnosis / Problem: Depression Condition at Discharge: Good Discharge Goals Goal(s): Improve function, Improve disease control, Learn about illness, Therapeutic intervention Activity Recommendations Activity Limitations: per Instructions/Follow-up section . Instructions / Follow-Up Instructions / Follow-Up . SPECIAL CARE INSTRUCTIONS: 1. Follow through with your scheduled aftercare appointments. If unable to keep an appointment, please call to reschedule. 2. Take your medication only as prescribed. Medication should not be changed or stopped without the approval of your doctor. In the event of worsening symptoms or concerns about side effects, contact your doctor immediately. You are being switched from Effexor XR to Cymbalta: Take 37.5 mg of Effexor XR daily for the next 3 days, then stop it. 3. Utilize new healthy coping skills, anger management skills, and stress management skills learned during your hospitalization. Journal feelings and process them with a support person. Identify stressors or situations that may result in relapse, deterioration or inappropriate behaviors and develop a plan to deal with those issues. 4. If your coping skills are ineffective and you are in crisis, contact your outpatient providers for direction. If unable to reach your providers, please call the CAN HELP LINE AT or go to the closest Emergency Room. 5. Avoid alcohol and un-prescribed drugs. 6. You have been provided with the Mental Health Advance Directives Pamphlet for your review. AFTERCARE APPOINTMENTS: * Please call your insurance company prior to your scheduled appointment to confirm your aftercare providers are covered. Take your insurance information to your appointments. . Discharge / Aftercare Planning Primary Care Physician: Name: Dr. Valencia Date of Appointment: Jul 05, 2017 Time of Appointment: 12:45pm Psychiatrist: Name: Dr [facility] Date of Appointment: Jul 08, 2017 Time of Appointment: 9:45am Therapist: Name Of Therapist: [facility] Date of Appointment: Jun 30, 2017 Time of Appointment: 11:30am Water Server: Name: Norma De Oliveira [facility] Appointment Notes: Every Partial or Psych Rehab: Name: [facility] Appointment Comments: Resume attending Wed,, and Wed schedule. Analyzer Sales: Name: Suraj Irwin Phone Number: Other: Name of Appointment #1: Sarah Date of Appointment #1: Jul 02, 2017 Time of Appointment #1: 1:15pm . Follow-Up Care Plan for Follow-Up Care: See above. Current Hospital Diet Patient's current hospital diet: Regular Diet, Diabetes Type 2 Diet Discharge Diet Recommended Diet: Diabetes Type 2 Diet Procedures Procedures Performed: No Pending Studies Pending Studies at Discharge: No Medical Emergencies . Who to Call and When: Medical Emergencies: For questions or emergencies related to your hospital stay, please contact the Inpatient Behavioral Health Unit at [phone]. A concrete pourer is on-call 10/05 for the Behavioral Health Unit for emergencies At any time you feel your situation is an emergency, you may also call 911 immediately. . Non-Emergent Contact Non-Emergency issues call your: Primary Care Provider, Psychiatrist, Therapist , Water Server Advance Directives Existing Advance Directive: No Do You Have an Existing Mental: No Existing Living Will: No Existing Power of Vp Clinical Research: No Advance Directives Info Given: To Pt/S.O. Advance Directives Reason: Declines as Mental Health Visit. Discharge Summary Admission HPI Per the Admitting provider: Please see admission H&P. Admission Exam Per the Admitting provider: Please see admission H&P. Consultations Diabetic pharmacist Hospital Course (1) Depression 06/25 major depressive disorder, recurrent; ?prior history bipolar II continue home medications, consider taper of Effexor XR as I'm wondering if twitching could also be related to side effect and/or discontinuation syndrome if misses doses in/out of various ED visits Nicotine dependence Offered nicotine patch as needed for cravings. Patient was educated about the risks of ongoing nicotine use, and encouraged to consider cutting back or quitting. He is pre-contemplative. Brief intervention was >5 min. 06/26 - will cross taper effexor xr 187.5mg to cymbalta over a few days to see if we can improve pain benefit which is impacting mood. will reduce effexor to 75mg po qpm tomorrow, then 37.5mg x1 day, then d/c. he will start cymbalta 30mg po qam tomorrow, then increase to 60mg po qam and will consider further titration pending need and tolerability. common risks/benefits reviewed w/ pt. he was informed of possible discontinuation sx in coming off effexor and will need to watch for s/o serotonin excess during cross taper. 06/27 - Continue with 3 day cross taper from Effexor to Cymbalta. Will consider further titration of Cymbalta pending need and tolerability. Patient reminded that it may take several weeks for new medication to show additional therapeutic efficacy. 06/28 - Discharge at patient's request. Given written instructions for completing cross taper. F/u with OP psychiatrist. (2) Intellectual disability chronic (3) Lumbago 06/26 - cymbalta trial for pain benefit as above - PT consult pending 06/27 - Patient not felt to be a candidate for inpatient rehabilitation presently. PT plans to revisit Wednesday (4) Nicotine abuse Continue patch, f/u with PCP for smoking cessation. Risk Factors Assessment Male: Yes : Yes /single/: Yes Higher / Fall in social status: No Access to guns: No Health problems: Yes Mental Health Diagnoses: Yes Substance use disorders: No Previous attempt: No Family history of suicide: No Previous psychiatric stay: Yes Hopelessness: No Smoker: Yes Protective Factors Assessment Ep[employer]opalian beliefs: Yes : No Responsible for young children: No Employed: No Good rapport with provider: Yes Absence of risk factors above: Yes (risk factors were mitigated by admission to the inpatient unit, adjusting medications to target depression and chronic pain, involving his outpatient spring encaser and coordinating care with his multiple outpatient providers, involving him in groups and therapy on the unit, physical therapy consult his request, working on healthy coping skills and her discharge safety plan. Mood has improved, he is tolerating medications well, denying suicidal thoughts, and requesting discharge. He is no longer at acute risk of harm to himself, so can be managed as an outpatient at this time.) Day of Discharge Assessment Hospital course: Patient attended groups and participated, and was seen by his physical therapy at his request. He had also been seen by them during his recent admission, and the recommendations were unchanged, stating that he was not appropriate for inpatient physical therapy, but could be referred for outpatient treatment. He was cross tapered from Effexor XR to Cymbalta, as he had been on it for 2-3 months and did not feel it had been very helpful. Although he was informed that he would not be able to go to [facility], he continued to state he was hopeful to be accepted there. He demonstrated good appetite, and seemed to enjoy groups and talking with others. He consistently denied suicidal thoughts in the hospital, and reported improved mood. He had a family meeting with his sister and blended spring encaser on 06/25/2017. He appeared to have difficulty understanding why he was not accepted at [facility]. Other options were reviewed, and were limited due to his lack on income. His outpatient supports were reviewed, and he usually has contact with a mental health provider 5 days a week. There was also some discussion of possible services related to his intellectual disability. Day of discharge assessment: The patient states that his mood is significantly improved, rates it a 9 or 10 out of 10, and denies suicidal thoughts. He states he is ready to go home, and is now focused on getting to a dental appointment he has later this week to have a tooth extracted. He is tolerating the cross taper from Effexor XR to Cymbalta well, and denies side effects. He recognizes that he will need to follow-up as an outpatient for physical therapy, although continues to hope that he will be accepted at [facility] somehow. He is able to review the coping skills he has worked on here, as well as his discharge safety plan. He denies any safety concerns with discharge. Well nourished, well developed WM appearing stated age. Casually dressed and adequately groomed. Calm and cooperative. Seated in NAD, with fair eye contact and no abnormal movements. Speech is normal rate, volume, and tone. Mood is "really good," and affect is stable and congruent. Thoughts are concrete and goal directed. The patient denied suicidal and homicidal ideation and was able to safety plan. No paranoia, delusions, or hallucinations, and did not appear to be responding to internal stimuli. Cognition was grossly intact. Alert and oriented to person, place and time. Intelligence is below average. Insight and and judgment are fair. Laboratory Test 06/24/17 15:05 06/24/17 15:08 06/27/17 20:39 06/28/17 08:43 Urine Color YELLOW Urine Appearance CLEAR Urine pH 7.0 Urine Specific Siler 1.021 Urine Protein NEG Urine Glucose (UA) TRACE Urine Ketones NEG Urine Occult Blood NEG Urine Nitrite NEG Urine Bilirubin NEG Urine Urobilinogen NEG Urine Leukocyte Esterase NEG Urine Opiates Screen POS Urine Codeine Confirmation (GC/MS) Pending Urine Morphine Confirm (GC/MS) Pending Urine Hydrocodone Confirm (GC/MS) Pending Urine Norhydrocodone Pending Urine Noroxycodone Pending Urine Oxycodone Confirm (GC/MS) Pending Urine Oxymorphone Confirm (GC/MS) Pending Urine Methadone, Qualitative NEG Urine Hydromorphone Confirm (GC/MS) Pending Urine Barbiturates NEG Urine Phencyclidine (PCP) Level NEG Ur Amphetamine/Methamphetamine NEG MDMA (Ecstasy) Screen NEG Urine Hydroxyalprazolam Confirm Pending Urine Benzodiazepines Screen POS 7-Amino Clonazepam Level Pending Urine Nordiazepam Confirmation Pending Urine Hydroxyethylflurazepam Level Pending Urine Lorazepam (GC/MS) Pending Urine Oxazepam Confirm (GC/MS) Pending Urine Temazepam Confirmation Pending Urine Hydroxytriazolam Confirmation Pending Urine Hydroxymidazolam Confirmation Pending Urine Cocaine Metabolite NEG Urine Marijuana (THC) NEG White Blood Count 7.06 Red Blood Count 5.40 Hemoglobin 15.8 Hematocrit 46.0 Mean Corpuscular Volume 85.2 Mean Corpuscular Hemoglobin 29.3 Mean Corpuscular Hemoglobin Concent 34.3 Platelet Count 242 Mean Platelet Volume 8.9 Neutrophils (%) (Auto) 58.1 Lymphocytes (%) (Auto) 27.9 Monocytes (%) (Auto) 8.8 Eosinophils (%) (Auto) 4.0 Basophils (%) (Auto) 0.8 Neutrophils # (Auto) 4.10 Lymphocytes # (Auto) 1.97 Monocytes # (Auto) 0.62 Eosinophils # (Auto) 0.28 Basophils # (Auto) 0.06 RDW Standard Deviation 41.7 RDW Coefficient of Variation 13.4 Immature Granulocyte % (Auto) 0.4 Immature Granulocyte # (Auto) 0.03 Sodium Level 138 Potassium Level 3.8 Chloride Level 105 Carbon Dioxide Level 28 Anion Gap 5.0 Blood Urea Nitrogen 11 Creatinine 0.81 Est Creatinine Clear Calc Drug Dose 172.1 Estimated GFR () 126.2 Estimated GFR (Non- 108.9 BUN/Creatinine Ratio 13.7 Random Glucose 134 Calcium Level 9.0 Total Bilirubin 0.4 Direct Bilirubin < 0.1 Aspartate Amino Transferase (AST) 19 Alanine Aminotransferase (ALT) 48 Alkaline Phosphatase 84 Total Protein 7.5 Albumin 3.6 Globulin 3.9 Albumin/Globulin Ratio 0.9 Thyroid Stimulating Hormone (TSH) 0.620 Ethyl Alcohol mg/dL < 3.0 POC Glucose 134 134 Total Time Total Time Spent (min): Greater than 30 minutes Tobacco Cessation at Discharge Smoking Status: Heavy Tobacco Smoker FDA approved Prescription: nicotine replacement product Problem Qualifiers (1) Depression: Major depression recurrence: recurrent Active/Remission status: currently active Major depression episode severity: severe Psychotic features: without psychotic features
[2017-06-28 11:33] LABS: COD UR NEGATIVE NG/ML (CUTOFF=50); HYDROCOD UR NEGATIVE NG/ML (CUTOFF=50); HYDROMOR UR NEGATIVE NG/ML (CUTOFF=50); HYDROXYETHYLFLURAZEPAM CONF NEGATIVE NG/ML (CUTOFF=50); HYDROXYMIDAZOLAM NEGATIVE NG/ML (CUTOFF=50); HYDROXYTRIAZOLAM CONF NEGATIVE NG/ML (CUTOFF=50); MORPHINE UR 96 NG/ML (CUTOFF=50); NORHYDROCODONE CONF UR 63 NG/ML (CUTOFF=50); OXYMORPH UR NEGATIVE NG/ML (CUTOFF=50); TEMAZEPAM CONF 117 NG/ML (CUTOFF=50)
[2017-06-28] MEDS: ACETAMINOPHEN 325 MG TAB PO PRN (12:06)
[2017-06-28] MEDS: NICOTINE POLACRILEX 2 MG GUM MT PRN (13:07)
[2017-07-29] MEDS ORDERED: LPT40 PO (09:14)
[2017-07-29] MEDS ORDERED: ASPEC81 PO (09:14)
== END 2017-06-28 15:37 | disposition home or self-care (01) | DRG 885 ==
LOC: EDBD 14:26 → C.EDA 14:27 → C.MHU 17:07 → ENRESERV 17:18
PROVIDERS: ADMIT Psychiatry & Neurology Child & Adolescent Psychiatry; ATTEND Psychiatry & Neurology Child & Adolescent Psychiatry
DX: F33.2 Major depressive disorder, recurrent severe without psychotic features (principal); R45.851 Suicidal ideations; Z83.3 Family history of diabetes mellitus; Z82.49 Family history of ischemic heart disease and other diseases of the circulatory system; F17.200 Nicotine dependence, unspecified, uncomplicated; G89.29 Other chronic pain; Z91.81 History of falling; E11.9 Type 2 diabetes mellitus without complications; G62.9 Polyneuropathy, unspecified; F79 Unspecified intellectual disabilities; M54.5 Low back pain; F17.210 Nicotine dependence, cigarettes, uncomplicated; Z79.4 Long term (current) use of insulin; Z81.8 Family history of other mental and behavioral disorders

== ENCOUNTER 2017-07-24 22:51 | Emergency (ER) | payer OTHER ==
[~2017-07-24] VITALS: Ht 190.5 cm; Wt 131.8 kg
[~2017-07-24 22:51] MED LIST changes: +CYM30 PO; -EFFSR150 PO; -FLX/5 PO
[2017-07-24 22:56] VITALS: Ht 190.5 cm; Wt 131.8 kg
--- NOTE | 2017-07-24 23:13 | EMERGENCY ROOM VISIT NOTE ---
History Report prepared by Marianela: Macy Johnston Under the Supervision of: Dr. Jann Conway M.D. First contact with patient: 23:00 Chief Complaint: CHEST PAIN Stated Complaint: CHEST PAIN Nursing Triage Summary: pt c/o left side chest pain for past 20 min. 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 He states that pain is severe and describes it as a "heavy" pain. The pain is in the left side of his chest. 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 He has had this pain before in the past. It does not radiate into his arm or neck. He did not take anything for the pain. He also complains of SOB. He has been feeling well otherwise. He denies any abdominal pain, back pain, urinary symptoms, rash, or change in bowel movement. He denies any trauma. He has been eating and drinking well. He denies any history of AR. He does smoke. He is no longer on lithium. He did not try hurting himself. His blood sugar has been under control. He did not check today. Source of History: patient Onset: 20 minutes ago Position: chest (left) Symptom Intensity: severe Quality: other (heaviness) Timing: other (persistent) Associated Symptoms: + SOB, No neck pain, No abdominal pain, No back pain, No urinary symptoms, No rash Note: Pt denies change in bowel movement. Review of Systems See HPI for pertinent positives & negatives. A total of 10 systems reviewed and were otherwise negative. Past Medical & Surgical Medical Problems: (1) Depression (2) Depression (3) DM type 2 (diabetes mellitus, type 2) (4) Gastroparesis (5) HTN (hypertension) (6) IBS (irritable bowel syndrome) (7) Intellectual disability (8) Intellectual disability (9) Lumbago (10) Mental retardation (11) Nicotine abuse (12) Nicotine dependence (13) NSVT (nonsustained ventricular tachycardia) (14) Obesity (15) Obstructive sleep apnea (16) Sepsis Surgical Problems: (1) S/P left knee arthroscopy (2) S/P tonsillectomy Social History Problems: (1) Alcohol abuse Family History Cancer Diabetes mellitus MOTHER GRANDMOTHER UNCLE AUNT Gallbladder disease Heart disease Hypertension MOTHER FATHER Lung disease Social History Smoking Status: Current Every Day Smoker Alcohol Use: heavy Drug Use: none Marital Status: Housing Status: lives with family Occupation Status: employed, other Current/Historical Medications Scheduled Acetaminophen (Tylenol), 1,000 MG PO BID Aripiprazole (Aripiprazole), 10 MG PO HS Duloxetine Hcl (Cymbalta), 60 MG PO QAM Gabapentin (Gabapentin), 400 MG PO TID Gabapentin (Gabapentin), 600 MG PO TID Insulin Aspart (Novolog Flexpen), 1 DOSE SC PC Insulin Glargine (Lantus Solostar), 38 UNITS SC BID Scheduled PRN Diclofenac Sodium (Topical) (Voltaren 1% Top Gel), 1 APPLN TOP QID PRN for Pain Nicotine Polacrilex (Nicorelief), 1 PIECE PO DIRECTED PRN for NICOTINE CRAVINGS Tramadol HCl (Tramadol HCl), 25 MG PO Q8 PRN for Pain Allergies Coded Allergies: Cephalosporins (Verified Allergy, Unknown, CECLOR, 07/24/17) NSAIDs (Verified Adverse Reaction, Unknown, gastroparesis, kidney problems , 07/24/17) Physical Exam Vital Signs Date Time Temp Pulse Resp B/P (MAP) Pulse Ox O2 Delivery O2 Flow Rate FiO2 07/25/17 01:24 89 16 131/82 95 07/25/17 01:00 36.7 115 20 124/70 95 Room Air 07/24/17 22:56 36.7 115 20 154/85 95 Room Air Physical Exam GENERAL: Patient is anxious appearing, unkempt, and in no acute distress. HEENT: No acute trauma, normocephalic atraumatic, mucous membranes moist, no nasal congestion, no scleral icterus. NECK: No stridor, no adenopathy, no meningismus, trachea is midline. LUNGS: No dyspnea. Clear to auscultation and equal bilaterally. No wheeze, no rhonchi. HEART: Mildly tachycardic rate and regular rhythm. No murmurs, rubs, gallops appreciated. Easily reproducible tenderness to palpation over the left upper chest. ABDOMEN: Soft, nontender, bowel sounds positive, no masses appreciated, no peritonitis. BACK: No midline tenderness, no CVA tenderness EXTREMITIES: Normal motion all extremities, no cyanosis, no edema. Left chest pain with ROM of left arm. NEUROLOGIC: Alert and oriented, no acute motor or sensory deficits, no focal weakness, cranial nerves grossly intact. SKIN: No rash, no jaundice, no diaphoresis. Medical Decision & Procedures ER Provider Diagnostic Interpretation: X ray results are stated below per my interpretation: Chest: 1 view: No infiltrate, no effusion, normal cardiac border. Similar to previous. Laboratory Results 07/24/17 23:00 Red Blood Count 5.08, Mean Corpuscular Volume 84.4, Mean Corpuscular Hemoglobin 29.3, Mean Corpuscular Hemoglobin Concent 34.7, Mean Platelet Volume 8.9, Neutrophils (%) (Auto) 57.1, Lymphocytes (%) (Auto) 30.3, Monocytes (%) (Auto) 8.4, Eosinophils (%) (Auto) 3.1, Basophils (%) (Auto) 0.5, Neutrophils # (Auto) 4.86, Lymphocytes # (Auto) 2.57, Monocytes # (Auto) 0.71, Eosinophils # (Auto) 0.26, Basophils # (Auto) 0.04 07/24/17 23:00 Test 07/24/17 23:00 07/24/17 23:17 07/25/17 00:38 White Blood Count 8.49 K/uL (4.8-10.8) Red Blood Count 5.08 M/uL (4.7-6.1) Hemoglobin 14.9 g/dL (14.0-18.0) Hematocrit 42.9 % (42-52) Mean Corpuscular Volume 84.4 fL (80-100) Mean Corpuscular Hemoglobin 29.3 pg (25-34) Mean Corpuscular Hemoglobin Concent 34.7 g/dl (32-36) Platelet Count 227 K/uL (130-400) Mean Platelet Volume 8.9 fL (7.4-10.4) Neutrophils (%) (Auto) 57.1 % Lymphocytes (%) (Auto) 30.3 % Monocytes (%) (Auto) 8.4 % Eosinophils (%) (Auto) 3.1 % Basophils (%) (Auto) 0.5 % Neutrophils # (Auto) 4.86 K/uL (1.4-6.5) Lymphocytes # (Auto) 2.57 K/uL (1.2-3.4) Monocytes # (Auto) 0.71 K/uL (0.11-0.59) Eosinophils # (Auto) 0.26 K/uL (0-0.5) Basophils # (Auto) 0.04 K/uL (0-0.2) RDW Standard Deviation 40.8 fL (36.4-46.3) RDW Coefficient of Variation 13.2 % (11.5-14.5) Immature Granulocyte % (Auto) 0.6 % Immature Granulocyte # (Auto) 0.05 K/uL (0.00-0.02) D-Dimer 240 ug/L FEU (0-500) Anion Gap 10.0 mmol/L (3-11) Est Creatinine Clear Calc Drug Dose 163.9 ml/min Estimated GFR () 123.7 Estimated GFR (Non- 106.7 BUN/Creatinine Ratio 16.4 (10-20) Calcium Level 8.8 mg/dl (8.5-10.1) Total Creatine Kinase 342 U/L (39-308) Creatine Kinase MB 7.6 ng/ml (0.5-3.6) Creatine Kinase MB Ratio 2.2 (0-3.0) Troponin I < 0.015 ng/ml (0-0.045) Bedside Glucose 239 mg/dl (70-99) Bedside Troponin I < 0.030 ng/ml (0-0.045) Laboratory results as reviewed by me. ECG Indication: chest pain Rate (beats per minute): 115 Rhythm: sinus tachycardia Findings: no acute ischemic change, no ectopy ED Course 2303: The patient was evaluated in room A3. A complete history and physical exam was performed. 2350: I reevaluated the patient. He has no further symptoms and is sleeping. He is willing to stay for a short cardiac rule out, as he has to return home. 0108: I reevaluated the patient. He feels fine and would like to go home. He requests a note for work. I discussed the results with him. He verbalized agreement of the treatment plan. He was discharged home. Medical Decision Differential: Cardiac Ischemia (STEMI, NSTEMI, Unstable Angina, etc), Aortic Dissection, Arrhythmia, Pulmonary Embolism, Pneumonia, Pneumothorax, MSK, Infectious, Pericarditis/Myocarditis, Esophageal Rupture, Gastrointestinal, amongst other pathologies entertained. 41 yr old male well known to department for many visits of varying issues arrives this evening with left upper chest pain which is clearly reproducible. Labs unremarkable. EKG similar to previous. Trop negative x 2. Dimer negative. CXR without change. He is sleeping on multiple re-evaluations. I do not feel this is ACS, Dissection, PE, infection, pericarditis, nor other acute emergent issue. He wishes to go home and sleep, thus requesting work note which was provided. Stressed need for him to follow up with PCP and reviewed symptoms requiring RTED. Stressed need to keep sugars under control. Medication Reconcilliation Current Medication List: was personally reviewed by me Blood Pressure Screening Patient's blood pressure: Normal blood pressure Blood pressure disposition: Did not require urgent referral Impression Primary Impression: Left sided chest pain Scribe Attestation The scribe's documentation has been prepared under my direction and personally reviewed by me in its entirety. I confirm that the note above accurately reflects all work, treatment, procedures, and medical decision making performed by me. Departure Information Dispostion Home / Self-Care Referrals No Doctor, Assigned (PCP) Patient Instructions ED Chest Pain Atypical Unkn Cause, My [facility] Additional Instructions Please follow up with your primary care provider for further evaluation and treatment.
[2017-07-24] MEDS ORDERED: ACET-1256 PO (23:16)
[2017-07-24] MEDS ORDERED: [UNRECOGNIZED DRUG - CODE] PO (23:16)
[2017-07-24] MEDS ORDERED: DULO60CA44 PO (23:16)
[2017-07-24 23:20] LABS: BASO % 0.5 %; BASO ABS # 0.04 K/uL (0-0.2); COMPLETE YES; EOS % 3.1 %; HEMATOCRIT 42.9 % (42-52); IG% 0.6 %; LYMPH % 30.3 %; LYMPH ABS # 2.57 K/uL (1.2-3.4); MEAN CELL VOLUME 84.4 fL (80-100); MEAN CORPUSCULAR HEMOGLOBIN 29.3 pg (25-34); MEAN CORPUSCULAR HGB CONC 34.7 g/dl (32-36); MEAN PLATELET VOLUME 8.9 fL (7.4-10.4); MONO % 8.4 %; NEUT % 57.1 %; PLATELET COUNT 227 K/uL (130-400); RED BLOOD COUNT 5.08 M/uL (4.7-6.1); WHITE BLOOD COUNT 8.49 K/uL (4.8-10.8)
[2017-07-24 23:34] LABS: BLOOD UREA NITROGEN 14 mg/dl (7-18); BUN/CREATININE RATIO 16.4 (10-20); CALCIUM 8.8 mg/dl (8.5-10.1); CARBON DIOXIDE 26 mmol/L (21-32); CHLORIDE 103 mmol/L (98-107); CREATININE 0.85 mg/dl (0.60-1.40); GLUCOSE 250 mg/dl (70-99); POTASSIUM 3.6 mmol/L (3.5-5.1); SODIUM 139 mmol/L (136-145)
[2017-07-24 23:39] LABS: CKMB/CK RATIO 2.2 (0-3.0)
[2017-07-25 01:00] VITALS: TEMP 36.7
[2017-07-25 01:24] VITALS: BP 131/82; PULSE 89; O2SAT 95
--- NOTE | 2017-07-25 06:05 | DIAGNOSTIC IMAGING REPORT ---
CHEST ONE VIEW PORTABLE CLINICAL HISTORY: 41 years-old Male presenting with Chest Pain. TECHNIQUE: Portable upright AP view of the chest was obtained. COMPARISON: 06/22/2017. FINDINGS: Cardiomediastinal silhouette normal. Mildly low lung volumes, unchanged. Mild bronchial wall thickening may be present. Lungs and pleural spaces clear. Degenerative changes of the thoracic spine. Upper abdomen normal. IMPRESSION: 1. Mild bronchial wall thickening could suggest bronchitis/bronchiolitis. No focal infiltrate to suggest pneumonia. Electronically signed by: Delgado Diaz M.D. 07/25/2017 6:04 AM Dictated Date/Time: 07/25/2017 6:03 AM
[2017-07-29] MEDS ORDERED: ASPEC81 PO (09:14)
[2017-07-29] MEDS ORDERED: LPT40 PO (09:14)
== END 2017-07-25 01:25 | disposition home or self-care (01) ==
LOC: C.EDB 22:53 → C.EDA 07-25 01:25
DX: R07.9 Chest pain, unspecified (principal); E11.9 Type 2 diabetes mellitus without complications; Z79.4 Long term (current) use of insulin; F33.2 Major depressive disorder, recurrent severe without psychotic features; F17.210 Nicotine dependence, cigarettes, uncomplicated; F32.9 Major depressive disorder, single episode, unspecified; I10 Essential (primary) hypertension; F79 Unspecified intellectual disabilities; G47.33 Obstructive sleep apnea (adult) (pediatric); Z79.899 Other long term (current) drug therapy

== ENCOUNTER 2017-07-31 20:02 | Emergency (ER) | payer OTHER ==
[~2017-07-31] VITALS: Ht 190.5 cm; Wt 134.3 kg
[~2017-07-31 20:02] MED LIST changes: +ACET-1256 PO; +ASPEC81 PO; -CYM30 PO; +DULO60CA44 PO; +LPT40 PO; -NCR2 MT; -VENL37.593 PO; +[UNRECOGNIZED DRUG - CODE] PO
[2017-07-31 20:04] VITALS: TEMP 36.8
[2017-07-31] MEDS ORDERED: ATOR-24 PO (20:12)
[2017-07-31] MEDS ORDERED: ASPI81TA28 PO (20:12)
[2017-07-31] MEDS ORDERED: SODIUM CHLORIDE 0.9% 1000ML 1,000 ML IV STA (20:22)
--- NOTE | 2017-07-31 20:26 | EMERGENCY ROOM VISIT NOTE ---
History Report prepared by Dorcasibsharri: Linda Wyatt Under the Supervision of: Dr. George Enriquez D.O. First contact with patient: 20:18 Chief Complaint: ARM PAIN Stated Complaint: NUMBNESS,WEAKNESS LEFT SIDE History of Present Illness The patient is a 41 year old male who presents to the Emergency Room with complaints of intermittent left arm pain for the past 2 days. He rates his discomfort as a 6/10 in severity. He notes he was seen here in the ED 2 days ago for the same symptoms. He states initially his pain lessened, but it came back around 1530. He has also experienced numbness in his left arm, as well as a headache. He denies any recent nausea or vomiting. The patient is a current smoker but denies any drug use. 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 A total of 10 systems reviewed and were otherwise negative. Past Medical & Surgical Medical Problems: (1) Depression (2) Depression (3) DM type 2 (diabetes mellitus, type 2) (4) Gastroparesis (5) HTN (hypertension) (6) IBS (irritable bowel syndrome) (7) Intellectual disability (8) Intellectual disability (9) Lumbago (10) Mental retardation (11) Nicotine abuse (12) Nicotine dependence (13) NSVT (nonsustained ventricular tachycardia) (14) Obesity (15) Obstructive sleep apnea (16) Sepsis (17) Stroke-like symptoms Surgical Problems: (1) S/P left knee arthroscopy (2) S/P tonsillectomy Social History Problems: (1) Alcohol abuse Family History Cancer Diabetes mellitus MOTHER GRANDMOTHER UNCLE AUNT Gallbladder disease Heart disease Hypertension MOTHER FATHER Lung disease Social History Smoking Status: Current Every Day Smoker Alcohol Use: heavy Drug Use: none Marital Status: Housing Status: lives with family Occupation Status: employed, other Current/Historical Medications Scheduled Acetaminophen (Tylenol), 1,000 MG PO BID Aripiprazole (Aripiprazole), 10 MG PO HS Aspirin (Aspirin Ec), 81 MG PO DAILY Atorvastatin (Lipitor), 40 MG PO QAM Duloxetine Hcl (Cymbalta), 60 MG PO QAM Gabapentin (Gabapentin), 400 MG PO TID Gabapentin (Gabapentin), 600 MG PO TID Insulin Aspart (Novolog Flexpen), 1 DOSE SC PC Insulin Glargine (Lantus Solostar), 38 UNITS SC BID Scheduled PRN Diclofenac Sodium (Topical) (Voltaren 1% Top Gel), 1 APPLN TOP QID PRN for Pain Nicotine Polacrilex (Nicorelief), 1 PIECE PO DIRECTED PRN for NICOTINE CRAVINGS Tramadol HCl (Tramadol HCl), 25 MG PO Q8 PRN for Pain Allergies Coded Allergies: Cephalosporins (Verified Allergy, Unknown, CECLOR, 07/31/17) NSAIDs (Verified Adverse Reaction, Unknown, gastroparesis, kidney problems , 07/31/17) Physical Exam Vital Signs Date Time Temp Pulse Resp B/P (MAP) Pulse Ox O2 Delivery O2 Flow Rate FiO2 07/31/17 21:43 94 18 133/87 96 Room Air 07/31/17 21:31 96 07/31/17 21:03 107 114/78 07/31/17 21:02 109 128/72 07/31/17 21:02 98 152/92 07/31/17 20:48 95 Room Air 07/31/17 20:48 95 07/31/17 20:20 18 149/89 95 Room Air 07/31/17 20:04 36.8 111 18 168/96 95 Room Air Physical Exam GENERAL: Patient is awake, alert, in no acute distress, patient is resting comfortably and showing no signs of anxiety EYES: The conjunctivae are clear. The pupils are round and reactive. EARS, NOSE, MOUTH AND THROAT: The nose is without any evidence of any deformity. Mucous membranes are moist tongue is midline NECK: The neck is nontender and supple. RESPIRATORY: Normal respiratory effort is noted there is no evidence of wheezing rhonchi or rales CARDIOVASCULAR: Regular rate and rhythm noted there no murmurs rubs or gallops normal S1 normal S2 GASTROINTESTINAL: The abdomen is soft. Bowel sounds are present in all quadrants. Abdomen is nontender MUSCULOSKELETAL/EXTREMITIES: There is no evidence of gross deformity full range of motion is noted in the hips and shoulders SKIN: There is no obvious evidence of any rash. There are no petechiae, pallor or cyanosis noted. NEUROLOGIC: Patient is awake alert and oriented x3 strength is symmetric patellar reflexes are 2+ bilaterally Medical Decision & Procedures ER Provider Diagnostic Interpretation: Radiology results as stated below per my review and radiologist interpretation: SINGLE VIEW CHEST CLINICAL HISTORY: Weakness. Change in mental status. FINDINGS: An AP, portable, upright chest radiograph is compared to study dated 07/27/2017 and correlated with chest CT dated 03/30/2017. The examination is degraded by portable technique, large body habitus, and patient rotation. The cardiomediastinal silhouette is unremarkable. The lungs and pleural spaces are clear. No pneumothorax is seen. The bony thorax is grossly intact. IMPRESSION: No active disease in the chest. Electronically signed by: Jaydon Wallace M.D. 07/31/2017 9:[address] SCAN OF THE BRAIN WITHOUT IV CONTRAST CLINICAL HISTORY: Change in mental status. Weakness. COMPARISON STUDY: CT brain dated 07/27/2017. MRI of the brain dated 07/28/2017. TECHNIQUE: Unenhanced axial CT scan of the brain is performed from the vertex to the skull base. A dose lowering technique was utilized adhering to the principles of ALARA. CT DOSE: 537.48 mGy.cm FINDINGS: Brain parenchyma: The brain parenchyma is normal in appearance. There is no hemorrhage, mass effect, or evidence of acute territorial ischemia by CT criteria. Hameed-white matter is preserved. No extra-axial fluid collection is seen. Ventricles, sulci, cisterns: Normal in configuration. Intracranial vasculature: The visualized intracranial vasculature at the skull base is normal in appearance. Calvarium: Unremarkable. Sinuses and mastoids: The visualized paranasal sinuses are clear. The mastoid air cells are well pneumatized. Orbits: The bony orbits are grossly intact. IMPRESSION: No acute intracranial abnormality and no significant change from recent prior studies. Electronically signed by: Jaydon Wallace M.D. 07/31/2017 9:10 PM Laboratory Results 07/31/17 20:40 Red Blood Count 5.12, Mean Corpuscular Volume 84.2, Mean Corpuscular Hemoglobin 28.7, Mean Corpuscular Hemoglobin Concent 34.1, Mean Platelet Volume 8.9, Neutrophils (%) (Auto) 47.4, Lymphocytes (%) (Auto) 38.5, Monocytes (%) (Auto) 8.7, Eosinophils (%) (Auto) 4.2, Basophils (%) (Auto) 0.6, Neutrophils # (Auto) 3.87, Lymphocytes # (Auto) 3.14, Monocytes # (Auto) 0.71, Eosinophils # (Auto) 0.34, Basophils # (Auto) 0.05 07/31/17 20:40 Test 07/31/17 20:40 07/31/17 20:53 White Blood Count 8.16 K/uL (4.8-10.8) Red Blood Count 5.12 M/uL (4.7-6.1) Hemoglobin 14.7 g/dL (14.0-18.0) Hematocrit 43.1 % (42-52) Mean Corpuscular Volume 84.2 fL (80-100) Mean Corpuscular Hemoglobin 28.7 pg (25-34) Mean Corpuscular Hemoglobin Concent 34.1 g/dl (32-36) Platelet Count 227 K/uL (130-400) Mean Platelet Volume 8.9 fL (7.4-10.4) Neutrophils (%) (Auto) 47.4 % Lymphocytes (%) (Auto) 38.5 % Monocytes (%) (Auto) 8.7 % Eosinophils (%) (Auto) 4.2 % Basophils (%) (Auto) 0.6 % Neutrophils # (Auto) 3.87 K/uL (1.4-6.5) Lymphocytes # (Auto) 3.14 K/uL (1.2-3.4) Monocytes # (Auto) 0.71 K/uL (0.11-0.59) Eosinophils # (Auto) 0.34 K/uL (0-0.5) Basophils # (Auto) 0.05 K/uL (0-0.2) RDW Standard Deviation 40.4 fL (36.4-46.3) RDW Coefficient of Variation 13.2 % (11.5-14.5) Immature Granulocyte % (Auto) 0.6 % Immature Granulocyte # (Auto) 0.05 K/uL (0.00-0.02) Prothrombin Time 10.2 SECONDS (9.0-12.0) Prothromb Time International Ratio 1.0 (0.9-1.1) Activated Partial Thromboplast Time 26.3 SECONDS (21.0-31.0) Partial Thromboplastin Ratio 1.0 Anion Gap 5.0 mmol/L (3-11) Est Creatinine Clear Calc Drug Dose 182.7 ml/min Estimated GFR () 128.8 Estimated GFR (Non- 111.1 BUN/Creatinine Ratio 16.0 (10-20) Calcium Level 8.8 mg/dl (8.5-10.1) Magnesium Level 1.9 mg/dl (1.8-2.4) Total Bilirubin 0.2 mg/dl (0.2-1) Direct Bilirubin < 0.1 mg/dl (0-0.2) Aspartate Amino Transf (AST/SGOT) 19 U/L (15-37) Alanine Aminotransferase (ALT/SGPT) 39 U/L (12-78) Alkaline Phosphatase 69 U/L (45-117) Total Creatine Kinase 247 U/L (39-308) Creatine Kinase MB 6.7 ng/ml (0.5-3.6) Creatine Kinase MB Ratio 2.7 (0-3.0) Troponin I < 0.015 ng/ml (0-0.045) Total Protein 7.3 gm/dl (6.4-8.2) Albumin 3.4 gm/dl (3.4-5.0) Thyroid Stimulating Hormone (TSH) 0.835 uIu/ml (0.300-4.500) Urine Color YELLOW Urine Appearance CLEAR (CLEAR) Urine pH 5.0 (4.5-7.5) Urine Specific Sherman 1.035 (1.000-1.030) Urine Protein NEG (NEG) Urine Glucose (UA) 3+ (NEG) Urine Ketones NEG (NEG) Urine Occult Blood NEG (NEG) Urine Nitrite NEG (NEG) Urine Bilirubin NEG (NEG) Urine Urobilinogen NEG (NEG) Urine Leukocyte Esterase NEG (NEG) Laboratory results per my review. Medications Administered Medications (Trade) Dose Ordered Sig/Mario Alberto Route Start Time Stop Time Status Last Admin Dose Admin Sodium Chloride 1,000 ml @ 999 mls/hr Q1H1M STAT IV 07/31/17 20:22 07/31/17 21:22 DC 07/31/17 21:04 999 MLS/HR ECG Indication: weakness Rate (beats per minute): 108 Rhythm: sinus tachycardia Findings: no ectopy, other (no acute ST segment abnormalities) Change: no significant change (No change from EKG on 07/27/2017) ED Course 2020: The patient was evaluated in room B6. A complete history and physical examination were performed. 2021: NSS 1000 ml @ 999 mls/hr IV. 2039: I reevaluated the patient. I discussed his results and discharge instructions and he verbalized complete understanding and agreement. Medical Decision Prior records/ancillary studies reviewed and summarized above. Nursing notes reviewed. Differential diagnosis: Etiologies such as metabolic, infection, hypo/hyperglycemia, electrolyte abnormalities, cardiac sources, intracerebral event, toxicologic, neurologic, as well as others were entertained. The patient is a 41-year-old male who presented to the emergency department for evaluation of weakness and headache. The patient was recently seen in our facility for similar complaints. At that time he was made a stroke alert. His workup did not reveal any signs of stroke. He was sinus rhythm. His MRI was negative. His carotids were evaluated and did not appear to have any significantly noted plaques. At this time the patient has no focal neurologic deficits. I discussed the patient's laboratory and radiographic studies with him. He was encouraged to follow-up with his family doctor as scheduled. He was also encouraged to continue all medications as prescribed and rest. He was encouraged to avoid any strenuous activity and return to the emergency department immediately if symptoms change worsen or need arises. Head Trauma GCS Score: 15 Medication Reconcilliation Current Medication List: was personally reviewed by me Blood Pressure Screening Patient's blood pressure: Elevated blood pressure Blood pressure disposition: Elevated BP felt to be situational Impression Primary Impression: Hyperglycemia Additional Impression: Migraine Scribe Attestation The scribe's documentation has been prepared under my direction and personally reviewed by me in its entirety. I confirm that the note above accurately reflects all work, treatment, procedures, and medical decision making performed by me. Departure Information Dispostion Home / Self-Care Referrals No Doctor, Assigned (PCP) Patient Instructions ED Weakness ELOISA, My [facility] Additional Instructions Continue all medications as prescribed. Rest and avoid any strenuous activity. Avoid driving until your cleared by her primary care physician. Discussed possibility with your family doctor that you may require a referral to a neurologist to further evaluate the cause of your headaches and other complaints. Problem Qualifiers Additional Impression: Migraine Migraine type: unspecified Status migrainosus presence: without status migrainosus Intractability: not intractable Qualified Codes: G43.909 - Migraine, unspecified, not intractable, without status migrainosus
[2017-07-31 20:48] VITALS: O2SAT 95
[2017-07-31 20:52] VITALS: Ht 190.5 cm; Wt 134.3 kg
[2017-07-31 20:56] LABS: BASO % 0.6 %; BASO ABS # 0.05 K/uL (0-0.2); COMPLETE YES; EOS % 4.2 %; HEMATOCRIT 43.1 % (42-52); IG% 0.6 %; LYMPH % 38.5 %; LYMPH ABS # 3.14 K/uL (1.2-3.4); MEAN CELL VOLUME 84.2 fL (80-100); MEAN CORPUSCULAR HEMOGLOBIN 28.7 pg (25-34); MEAN CORPUSCULAR HGB CONC 34.1 g/dl (32-36); MEAN PLATELET VOLUME 8.9 fL (7.4-10.4); MONO % 8.7 %; NEUT % 47.4 %; PLATELET COUNT 227 K/uL (130-400); RED BLOOD COUNT 5.12 M/uL (4.7-6.1); WHITE BLOOD COUNT 8.16 K/uL (4.8-10.8)
[2017-07-31 21:04] LABS: URINE APPEARANCE CLEAR (CLEAR); URINE BILIRUBIN NEG (NEG); URINE COLOR YELLOW; URINE NITRITE NEG (NEG); URINE SPECIFIC GRAVITY 1.035 (1.000-1.030); UROBILINOGEN NEG (NEG)
--- NOTE | 2017-07-31 21:08 | DIAGNOSTIC IMAGING REPORT ---
SINGLE VIEW CHEST CLINICAL HISTORY: Weakness. Change in mental status. FINDINGS: An AP, portable, upright chest radiograph is compared to study dated 07/27/2017 and correlated with chest CT dated 03/30/2017. The examination is degraded by portable technique, large body habitus, and patient rotation. The cardiomediastinal silhouette is unremarkable. The lungs and pleural spaces are clear. No pneumothorax is seen. The bony thorax is grossly intact. IMPRESSION: No active disease in the chest. Electronically signed by: Jaydon Wallace M.D. 07/31/2017 9:07 PM Dictated Date/Time: 07/31/2017 9:06 PM
[2017-07-31 21:09] LABS: PROTHROMBIN TIME (PATIENT) 10.2 SECONDS (9.0-12.0)
--- NOTE | 2017-07-31 21:11 | DIAGNOSTIC IMAGING REPORT ---
CT SCAN OF THE BRAIN WITHOUT IV CONTRAST CLINICAL HISTORY: Change in mental status. Weakness. COMPARISON STUDY: CT brain dated 07/27/2017. MRI of the brain dated 07/28/2017. TECHNIQUE: Unenhanced axial CT scan of the brain is performed from the vertex to the skull base. A dose lowering technique was utilized adhering to the principles of ALARA. CT DOSE: 537.48 mGy.cm FINDINGS: Brain parenchyma: The brain parenchyma is normal in appearance. There is no hemorrhage, mass effect, or evidence of acute territorial ischemia by CT criteria. Hameed-white matter is preserved. No extra-axial fluid collection is seen. Ventricles, sulci, cisterns: Normal in configuration. Intracranial vasculature: The visualized intracranial vasculature at the skull base is normal in appearance. Calvarium: Unremarkable. Sinuses and mastoids: The visualized paranasal sinuses are clear. The mastoid air cells are well pneumatized. Orbits: The bony orbits are grossly intact. IMPRESSION: No acute intracranial abnormality and no significant change from recent prior studies. Electronically signed by: Jaydon Wallace M.D. 07/31/2017 9:10 PM Dictated Date/Time: 07/31/2017 9:08 PM
[2017-07-31 21:17] LABS: MANUAL MICROSCOPIC REQUIRED? NO; REVIEW REQ? NO
[2017-07-31 21:22] LABS: ALT/SGPT 39 U/L (12-78); BLOOD UREA NITROGEN 12 mg/dl (7-18); CALCIUM 8.8 mg/dl (8.5-10.1); CARBON DIOXIDE 28 mmol/L (21-32); CHLORIDE 104 mmol/L (98-107); CREATININE 0.77 mg/dl (0.60-1.40); GLUCOSE 191 mg/dl (70-99); MAGNESIUM 1.9 mg/dl (1.8-2.4); POTASSIUM 3.7 mmol/L (3.5-5.1); SODIUM 137 mmol/L (136-145)
[2017-07-31 21:33] LABS: ALKALINE PHOSPHATASE 69 U/L (45-117); AST/SGOT 19 U/L (15-37); CKMB/CK RATIO 2.7 (0-3.0); THYROID STIMULATING HORMONE 0.835 uIu/ml (0.300-4.500)
[2017-07-31 21:43] VITALS: BP 133/87; PULSE 94; O2SAT 96
== END 2017-07-31 21:56 | disposition home or self-care (01) ==
LOC: C.EDB 20:03
DX: R73.9 Hyperglycemia, unspecified (principal); G43.909 Migraine, unspecified, not intractable, without status migrainosus; F32.9 Major depressive disorder, single episode, unspecified; E11.9 Type 2 diabetes mellitus without complications; I10 Essential (primary) hypertension; K58.9 Irritable bowel syndrome, unspecified; F79 Unspecified intellectual disabilities; E66.9 Obesity, unspecified; G47.33 Obstructive sleep apnea (adult) (pediatric); Z83.3 Family history of diabetes mellitus; Z82.49 Family history of ischemic heart disease and other diseases of the circulatory system; F17.200 Nicotine dependence, unspecified, uncomplicated; Z79.82 Long term (current) use of aspirin; Z79.4 Long term (current) use of insulin

== ENCOUNTER 2017-08-08 11:17 | Emergency (ER) | payer OTHER ==
[~2017-08-08] VITALS: Ht 190.5 cm; Wt 131.0 kg
[~2017-08-08 11:17] MED LIST changes: -ASPEC81 PO; +ASPI81TA28 PO; +ATOR-24 PO; -LPT40 PO
[2017-08-08 11:32] VITALS: TEMP 37.2; Ht 190.5 cm; Wt 131.0 kg
[2017-08-08] MEDS ORDERED: SODIUM CHLORIDE 0.9% 1000ML 1,000 ML IV STA (12:03)
[2017-08-08] MEDS ORDERED: ACETAMINOPHEN IV 1,000 MG in EMPTY BAG 0 ML IV STA (12:03)
[2017-08-08] MEDS ORDERED: SODIUM CHLORIDE 0.9% 500ML 500 ML IV STA (12:03)
--- NOTE | 2017-08-08 12:09 | EMERGENCY ROOM VISIT NOTE ---
History Report prepared by Marianela: Ton Panchal Under the Supervision of: Dr. Eulalia Ribeiro M.D. First contact with patient: 11:45 Chief Complaint: VOMITING Stated Complaint: STOMACH PAIN,VOMITING Nursing Triage Summary: Pt states that he is having abdominal pain in lower right quadrant since Wednesday. Pt saw his PCP and was told to come back in if the pain got worse. Pt stated the he started to vomit yesterday. Pt states he vomited 5 times. Pt denies fever or diarrhea. Pt stated he had a bowel movement last evening. Pt went to [facility] this AM and was told to come to the ED History of Present Illness The patient is a 41 year old male who presents to the Emergency Room with complaints of intermittent vomiting beginning yesterday. The patient states that he also began experiencing lower abdominal pain 4 days ago, but has not had any previous abdominal pain. He went to his PCP for his abdominal pain and was told to go to the emergency department if his symptoms got any worse. He notes that he has not had a history of abdominal surgery. Source of History: patient Onset: yesterday Position: abdomen Quality: other Timing: intermittent Associated Symptoms: + abdominal pain (lower) Review of Systems See HPI for pertinent positives & negatives. A total of 10 systems reviewed and were otherwise negative. Past Medical & Surgical Medical Problems: (1) Depression (2) Depression (3) DM type 2 (diabetes mellitus, type 2) (4) Gastroparesis (5) HTN (hypertension) (6) IBS (irritable bowel syndrome) (7) Intellectual disability (8) Intellectual disability (9) Lumbago (10) Mental retardation (11) Nicotine abuse (12) Nicotine dependence (13) NSVT (nonsustained ventricular tachycardia) (14) Obesity (15) Obstructive sleep apnea (16) Sepsis (17) Stroke-like symptoms Surgical Problems: (1) S/P left knee arthroscopy (2) S/P tonsillectomy Social History Problems: (1) Alcohol abuse Family History Cancer Diabetes mellitus MOTHER GRANDMOTHER UNCLE AUNT Gallbladder disease Heart disease Hypertension MOTHER FATHER Lung disease Social History Smoking Status: Current Every Day Smoker Alcohol Use: heavy Drug Use: none Marital Status: Housing Status: lives with family Occupation Status: employed, other Current/Historical Medications Scheduled Acetaminophen (Tylenol), 1,000 MG PO BID Aripiprazole (Aripiprazole), 10 MG PO HS Aspirin (Aspirin Ec), 81 MG PO DAILY Atorvastatin (Lipitor), 40 MG PO QAM Duloxetine Hcl (Cymbalta), 60 MG PO QAM Gabapentin (Gabapentin), 400 MG PO TID Gabapentin (Gabapentin), 600 MG PO TID Insulin Aspart (Novolog Flexpen), 1 DOSE SC PC Insulin Glargine (Lantus Solostar), 38 UNITS SC BID Scheduled PRN Diclofenac Sodium (Topical) (Voltaren 1% Top Gel), 1 APPLN TOP QID PRN for Pain Nicotine Polacrilex (Nicorelief), 1 PIECE PO DIRECTED PRN for NICOTINE CRAVINGS Promethazine (Phenergan Suppository), [address] Q4H PRN for Nausea Tramadol HCl (Tramadol HCl), 25 MG PO Q8 PRN for Pain Allergies Coded Allergies: Cephalosporins (Verified Allergy, Unknown, CECLOR, 08/08/17) NSAIDs (Verified Adverse Reaction, Unknown, gastroparesis, kidney problems , 08/08/17) Physical Exam Vital Signs Date Time Temp Pulse Resp B/P (MAP) Pulse Ox O2 Delivery O2 Flow Rate FiO2 08/08/17 14:46 84 14 142/80 99 08/08/17 13:37 84 16 148/90 97 08/08/17 12:32 114 08/08/17 12:30 111 18 147/93 98 08/08/17 11:32 37.2 116 20 140/79 97 Room Air Physical Exam Vital signs reviewed. General: Well-appearing, in no significant distress. Obese/ HEENT: No scleral icterus, PERRLA, neck supple. Atraumatic. Cardiovascular: Regular rate and rhythm, no extra sounds. Pulmonary: Clear to auscultation bilaterally, normal work of breathing. Abdomen: Soft, nontender, nondistended, positive bowel sounds. Tender to palpation to lower abdomen, no rebound, no guarding. Musculoskeletal: Atraumatic, no peripheral edema. Neurologic: Patient awake alert and oriented x 3 Skin: Warm, dry, no rash Medical Decision & Procedures ER Provider Diagnostic Interpretation: Radiology results as stated below per my review and radiologist interpretation: CT ABD/PELVIS IV CONTRAST ONLY FINDINGS: Lower chest: There are mild bibasal atelectatic changes. There is borderline thickening of the distal esophagus, finding unchanged the prior study. Liver: There is hepatic steatosis. No focal masses are visualized. Gallbladder: Unremarkable. Spleen: Normal in size and attenuation. Pancreas: Unremarkable. Adrenal glands: Unremarkable. Kidneys: There is symmetric renal cortical enhancement. The kidneys are normal in size without hydronephrosis. Bowel: There are no transition zones indicate bowel obstruction. There is colonic diverticulosis. There are no acute peridiverticular inflammatory changes. The appendix appears normal. Peritoneum: There is no intraperitoneal free air or abdominal ascites. Vasculature: The abdominal aorta is normal in course and caliber. Adenopathy: None. Pelvic viscera: The bladder, and pelvic viscera are unremarkable. Skeletal structures: No destructive osseous lesions are seen. IMPRESSION: 1. No evidence of bowel obstruction. No evidence of free air 2. Normal appendix 3. No evidence of acute diverticulitis 4. Hepatic steatosis Electronically signed by: Ortiz Driscoll M.D. 08/08/2017 2:12 PM Laboratory Results 08/08/17 12:05 Red Blood Count 5.12, Mean Corpuscular Volume 84.0, Mean Corpuscular Hemoglobin 29.3, Mean Corpuscular Hemoglobin Concent 34.9, Mean Platelet Volume 9.0, Neutrophils (%) (Auto) 69.1, Lymphocytes (%) (Auto) 20.3, Monocytes (%) (Auto) 9.6, Eosinophils (%) (Auto) 0.3, Basophils (%) (Auto) 0.3, Neutrophils # (Auto) 4.72, Lymphocytes # (Auto) 1.39, Monocytes # (Auto) 0.66, Eosinophils # (Auto) 0.02, Basophils # (Auto) 0.02 08/08/17 12:05 Test 08/08/17 12:05 08/08/17 12:25 White Blood Count 6.84 K/uL (4.8-10.8) Red Blood Count 5.12 M/uL (4.7-6.1) Hemoglobin 15.0 g/dL (14.0-18.0) Hematocrit 43.0 % (42-52) Mean Corpuscular Volume 84.0 fL (80-100) Mean Corpuscular Hemoglobin 29.3 pg (25-34) Mean Corpuscular Hemoglobin Concent 34.9 g/dl (32-36) Platelet Count 232 K/uL (130-400) Mean Platelet Volume 9.0 fL (7.4-10.4) Neutrophils (%) (Auto) 69.1 % Lymphocytes (%) (Auto) 20.3 % Monocytes (%) (Auto) 9.6 % Eosinophils (%) (Auto) 0.3 % Basophils (%) (Auto) 0.3 % Neutrophils # (Auto) 4.72 K/uL (1.4-6.5) Lymphocytes # (Auto) 1.39 K/uL (1.2-3.4) Monocytes # (Auto) 0.66 K/uL (0.11-0.59) Eosinophils # (Auto) 0.02 K/uL (0-0.5) Basophils # (Auto) 0.02 K/uL (0-0.2) RDW Standard Deviation 40.0 fL (36.4-46.3) RDW Coefficient of Variation 13.1 % (11.5-14.5) Immature Granulocyte % (Auto) 0.4 % Immature Granulocyte # (Auto) 0.03 K/uL (0.00-0.02) Anion Gap 8.0 mmol/L (3-11) Est Creatinine Clear Calc Drug Dose 173.6 ml/min Estimated GFR () 126.8 Estimated GFR (Non- 109.4 BUN/Creatinine Ratio 18.7 (10-20) Calcium Level 8.6 mg/dl (8.5-10.1) Total Bilirubin 0.8 mg/dl (0.2-1) Direct Bilirubin 0.1 mg/dl (0-0.2) Aspartate Amino Transf (AST/SGOT) 28 U/L (15-37) Alanine Aminotransferase (ALT/SGPT) 47 U/L (12-78) Alkaline Phosphatase 65 U/L (45-117) Total Protein 7.6 gm/dl (6.4-8.2) Albumin 3.8 gm/dl (3.4-5.0) Lipase 110 U/L (73-393) Urine Color DK YELLOW Urine Appearance CLEAR (CLEAR) Urine pH 6.0 (4.5-7.5) Urine Specific [place] 1.036 (1.000-1.030) Urine Protein 1+ (NEG) Urine Glucose (UA) 3+ (NEG) Urine Ketones TRACE (NEG) Urine Occult Blood NEG (NEG) Urine Nitrite NEG (NEG) Urine Bilirubin NEG (NEG) Urine Urobilinogen POS (NEG) Urine Leukocyte Esterase NEG (NEG) Urine WBC (Auto) 1-5 /hpf (0-5) Urine RBC (Auto) 0-4 /hpf (0-4) Urine Hyaline Casts (Auto) 1-5 /lpf (0-5) Urine Epithelial Cells (Auto) 5-10 /lpf (0-5) Urine Bacteria (Auto) NEG (NEG) Laboratory results per my review. Medications Administered Medications (Trade) Dose Ordered Sig/Mario Alberto Route Start Time Stop Time Status Last Admin Dose Admin Sodium Chloride 500 ml @ 999 mls/hr Q31M STAT IV 08/08/17 12:03 08/08/17 12:33 DC 08/08/17 12:21 999 MLS/HR Sodium Chloride 1,000 ml @ 200 mls/hr Q5H STAT IV 08/08/17 12:03 08/08/17 15:22 DC 08/08/17 12:55 200 MLS/HR Acetaminophen (Ofirmev Iv) 1,000 mg STK-MED ONCE IV 08/08/17 12:17 08/08/17 12:18 DC 08/08/17 12:21 1,000 MG ED Course 1202: Past medical records reviewed. The patient was evaluated in room B11. A complete history and physical examination was performed. 1203: Acetaminophen 1000 mg/empty bag 100ml @ 400 mls/hr IV, Sodium Chloride 500 ml @ 999 mls/hr IV 1453: Upon reevaluation, the patient appeared to have improvement of his symptoms. I discussed findings with him. He verbalized agreement of the treatment plan. The patient was discharged home. Medical Decision Differential diagnosis: Etiologies such as appendicitis, diverticulitis, PUD, biliary pathology, UTI, pancreatitis, obstruction, mesenteric ischemia, aortic pathology, infections, inflammatory bowel disease, renal colic, as well as others were entertained. This patient was evaluated and appeared to be in no significant distress. IV access was obtained and laboratory work was drawn. The patient was placed on the priest and found to be in a normal sinus rhythm. IV fluids were initiated. The patient was given IV Tylenol for his discomfort. Laboratory work is fairly unrevealing. CT scan abdomen and pelvis was performed and reveals no evidence of an acute inflammatory process. Patient's urinalysis is clear. The patient was discharged to follow-up with his PCP. He and will return to the ER for worsening of symptoms or any medical concerns. Medication Reconcilliation Current Medication List: was personally reviewed by me Blood Pressure Screening Patient's blood pressure: Elevated blood pressure Blood pressure disposition: Elevated BP felt to be situational Impression Primary Impression: Right lower quadrant abdominal pain Scribe Attestation The scribe's documentation has been prepared under my direction and personally reviewed by me in its entirety. I confirm that the note above accurately reflects all work, treatment, procedures, and medical decision making performed by me. Departure Information Dispostion Home / Self-Care Referrals No Doctor, Assigned (PCP) Forms HOME CARE DOCUMENTATION FORM, IMPORTANT VISIT INFORMATION Patient Instructions My [facility] Additional Instructions Diagnosis: Right lower quadrant abdominal pain Tylenol 650 mg every 6 hours as needed for pain. Drink plenty of clear fluids. Follow-up with your physician this week for reevaluation. Return to the ER for worsening of symptoms or any medical concerns.
[2017-08-08] MEDS ORDERED: ACETAMINOPHEN 1000 MG/100 ML IV IV ONE (12:17)
[2017-08-08 12:25] LABS: BASO % 0.3 %; BASO ABS # 0.02 K/uL (0-0.2); COMPLETE YES; EOS % 0.3 %; IG% 0.4 %; LYMPH % 20.3 %; LYMPH ABS # 1.39 K/uL (1.2-3.4); MEAN CORPUSCULAR HEMOGLOBIN 29.3 pg (25-34); MEAN CORPUSCULAR HGB CONC 34.9 g/dl (32-36); MONO % 9.6 %; NEUT % 69.1 %; PLATELET COUNT 232 K/uL (130-400); RED BLOOD COUNT 5.12 M/uL (4.7-6.1); WHITE BLOOD COUNT 6.84 K/uL (4.8-10.8)
[2017-08-08 12:45] LABS: BUN/CREATININE RATIO 18.7 (10-20); CALCIUM 8.6 mg/dl (8.5-10.1); CREATININE 0.8 mg/dl (0.60-1.40); POTASSIUM 3.7 mmol/L (3.5-5.1)
[2017-08-08 12:51] LABS: URINE APPEARANCE CLEAR (CLEAR); URINE BILIRUBIN NEG (NEG); URINE COLOR DK YELLOW; URINE NITRITE NEG (NEG); URINE SPECIFIC GRAVITY 1.036 (1.000-1.030); UROBILINOGEN POS (NEG); ZZUR CULT IF INDIC CLEAN CATCH NO
[2017-08-08 12:55] LABS: MANUAL MICROSCOPIC REQUIRED? NO; REVIEW REQ? NO
--- NOTE | 2017-08-08 14:13 | DIAGNOSTIC IMAGING REPORT ---
CT ABD/PELVIS IV CONTRAST ONLY CLINICAL HISTORY: Right lower quadrant abdominal pain and vomiting. COMPARISON STUDY: 08/06/2016 TECHNIQUE: Following the IV administration of 116 mL of Optiray-320, CT scan of the abdomen and pelvis was performed from the lung bases to the proximal femurs. Images are reviewed in the axial, sagittal, and coronal planes. IV contrast was administered without complication. A dose lowering technique was utilized adhering to the principles of ALARA. CT DOSE: 1243.20 mGycm FINDINGS: Lower chest: There are mild bibasal atelectatic changes. There is borderline thickening of the distal esophagus, finding unchanged the prior study. Liver: There is hepatic steatosis. No focal masses are visualized. Gallbladder: Unremarkable. Spleen: Normal in size and attenuation. Pancreas: Unremarkable. Adrenal glands: Unremarkable. Kidneys: There is symmetric renal cortical enhancement. The kidneys are normal in size without hydronephrosis. Bowel: There are no transition zones indicate bowel obstruction. There is colonic diverticulosis. There are no acute peridiverticular inflammatory changes. The appendix appears normal. Peritoneum: There is no intraperitoneal free air or abdominal ascites. Vasculature: The abdominal aorta is normal in course and caliber. Adenopathy: None. Pelvic viscera: The bladder, and pelvic viscera are unremarkable. Skeletal structures: No destructive osseous lesions are seen. IMPRESSION: 1. No evidence of bowel obstruction. No evidence of free air 2. Normal appendix 3. No evidence of acute diverticulitis 4. Hepatic steatosis Electronically signed by: Ortiz Driscoll M.D. 08/08/2017 2:12 PM Dictated Date/Time: 08/08/2017 2:09 PM
[2017-08-08] MEDS ORDERED: OPTIRAY 320 IV PRN (14:15)
[2017-08-08 14:46] VITALS: BP 142/80; PULSE 84; O2SAT 99
[2017-08-09] MEDS ORDERED: PROM1SUP19 PR (06:25)
== END 2017-08-08 14:48 | disposition home or self-care (01) ==
LOC: C.EDB 11:18
DX: R10.31 Right lower quadrant pain (principal); F32.9 Major depressive disorder, single episode, unspecified; E11.43 Type 2 diabetes mellitus with diabetic autonomic (poly)neuropathy; I10 Essential (primary) hypertension; K58.9 Irritable bowel syndrome, unspecified; F79 Unspecified intellectual disabilities; F17.210 Nicotine dependence, cigarettes, uncomplicated; G47.33 Obstructive sleep apnea (adult) (pediatric); Z68.36 Body mass index [BMI] 36.0-36.9, adult; Z80.9 Family history of malignant neoplasm, unspecified; Z83.3 Family history of diabetes mellitus; Z82.49 Family history of ischemic heart disease and other diseases of the circulatory system; Z79.82 Long term (current) use of aspirin; Z79.4 Long term (current) use of insulin; Z79.899 Other long term (current) drug therapy

== ENCOUNTER 2017-08-09 02:33 | Emergency (ER) | payer OTHER ==
[~2017-08-09] VITALS: Ht 190.5 cm; Wt 132.0 kg
[2017-08-09 02:36] VITALS: TEMP 36.8; Ht 190.5 cm; Wt 132.0 kg
[2017-08-09] MEDS ORDERED: SODIUM CHLORIDE 0.9% 1000ML 1,000 ML IV STA (03:05)
[2017-08-09] MEDS ORDERED: ACETAMINOPHEN IV 100 ML IV STA (03:05)
[2017-08-09] MEDS ORDERED: METOCLOPRAMIDE HCL INJ 5 MG/ML 2 ML VIAL IV STA (03:05)
--- NOTE | 2017-08-09 03:16 | EMERGENCY ROOM VISIT NOTE ---
History First contact with patient: 02:54 Chief Complaint: ABDOMINAL PAIN Stated Complaint: ABDOMINAL PAIN Nursing Triage Summary: Pt presents s for evaluation of abdominal pain. RLQ abdominal pain starting wed. Vomitting starting wednesday. History of Present Illness The patient is a 41 year old male who presents to the Emergency Room with complaints of abdominal pain and nausea/vomiting. He states his abdominal pain started about 4 days ago and was only mild, but his pain became more severe yesterday and he has been vomiting. He was evaluated in this ED this morning for the same symptoms, had lab work and CT that were unremarkable, and felt better with IV fluids and Tylenol. He states his symptoms started getting worse again a few hours ago, and he has been unable to keep anything down all day. He denies any chest pain, shortness of breath, back pain, fevers or chills, hemoptysis, urinary symptoms, rash. Review of Systems A complete 10 point review of systems was reviewed with the patient with pertinent positives and negatives as per history of present illness. All else were negative. Past Medical/Surgical History Medical Problems: (1) Depression (2) Depression (3) DM type 2 (diabetes mellitus, type 2) (4) Gastroparesis (5) HTN (hypertension) (6) IBS (irritable bowel syndrome) (7) Intellectual disability (8) Intellectual disability (9) Lumbago (10) Mental retardation (11) Nicotine abuse (12) Nicotine dependence (13) NSVT (nonsustained ventricular tachycardia) (14) Obesity (15) Obstructive sleep apnea (16) Sepsis (17) Stroke-like symptoms Surgical Problems: (1) S/P left knee arthroscopy (2) S/P tonsillectomy Social History Problems: (1) Alcohol abuse Family History Cancer Diabetes mellitus MOTHER GRANDMOTHER UNCLE AUNT Gallbladder disease Heart disease Hypertension MOTHER FATHER Lung disease Social History Smoking Status: Current Every Day Smoker Alcohol Use: heavy Drug Use: none Marital Status: Housing Status: lives with family Occupation Status: employed, other Current/Historical Medications Scheduled Acetaminophen (Tylenol), 1,000 MG PO BID Aripiprazole (Aripiprazole), 10 MG PO HS Aspirin (Aspirin Ec), 81 MG PO DAILY Atorvastatin (Lipitor), 40 MG PO QAM Duloxetine Hcl (Cymbalta), 60 MG PO QAM Gabapentin (Gabapentin), 400 MG PO TID Gabapentin (Gabapentin), 600 MG PO TID Insulin Aspart (Novolog Flexpen), 1 DOSE SC PC Insulin Glargine (Lantus Solostar), 38 UNITS SC BID Scheduled PRN Diclofenac Sodium (Topical) (Voltaren 1% Top Gel), 1 APPLN TOP QID PRN for Pain Nicotine Polacrilex (Nicorelief), 1 PIECE PO DIRECTED PRN for NICOTINE CRAVINGS Promethazine (Phenergan Suppository), 25 MG [place] Q4H PRN for Nausea Tramadol HCl (Tramadol HCl), 25 MG PO Q8 PRN for Pain Allergies Coded Allergies: Cephalosporins (Verified Allergy, Unknown, CECLOR, 08/08/17) NSAIDs (Verified Adverse Reaction, Unknown, gastroparesis, kidney problems , 08/08/17) Physical Exam Vital Signs Date Time Temp Pulse Resp B/P (MAP) Pulse Ox O2 Delivery O2 Flow Rate FiO2 08/09/17 06:20 80 18 190/105 97 Room Air 08/09/17 04:36 82 18 188/91 98 08/09/17 02:40 108 08/09/17 02:36 36.8 108 18 173/83 94 Room Air Physical Exam CONSTITUTIONAL: No acute distress. Dehydrated. Well appearing and well nourished. Alert and oriented X 4 with normal affect. HEENT: Normocephalic, atraumatic. Pupils equal, round and reactive to light, EOMI. TMs normal. Pharynx normal. Dry mucous members. NECK: Supple, full active range of motion without discomfort. RESPIRATORY: Clear to auscultation bilaterally with no wheezing, crackles, rhonchi or stridor. Equal expansion bilaterally. CARDIOVASCULAR: Tachycardic. Regular rate and rhythm with no murmurs, rubs or gallops. Normal peripheral perfusion. No edema. GASTROINTESTINAL: Diffuse abdominal tenderness to palpation, more significant in the lower quadrants. Soft and nondistended, obese. No rebound or guarding. No CVA tenderness. Hypoactive bowel sounds all 4 quadrants. MUSCULOSKELETAL: Full range of motion of all joints without discomfort. INTEGUMENTARY: No rash or other significant dermatologic conditions noted. NEUROLOGIC: Cranial nerves II-XII grossly intact. No focal neurologic deficits noted. Medical Decision & Procedures Laboratory Results 08/09/17 02:40 Red Blood Count 4.65, Mean Corpuscular Volume 84.3, Mean Corpuscular Hemoglobin 29.5, Mean Corpuscular Hemoglobin Concent 34.9, Mean Platelet Volume 8.8, Neutrophils (%) (Auto) 60.0, Lymphocytes (%) (Auto) 27.8, Monocytes (%) (Auto) 10.1, Eosinophils (%) (Auto) 1.4, Basophils (%) (Auto) 0.4, Neutrophils # (Auto ) 4.55, Lymphocytes # (Auto) 2.11, Monocytes # (Auto) 0.77, Eosinophils # (Auto ) 0.11, Basophils # (Auto) 0.03 08/09/17 02:40 Test 08/09/17 02:40 08/09/17 03:39 White Blood Count 7.59 K/uL (4.8-10.8) Red Blood Count 4.65 M/uL (4.7-6.1) Hemoglobin 13.7 g/dL (14.0-18.0) Hematocrit 39.2 % (42-52) Mean Corpuscular Volume 84.3 fL (80-100) Mean Corpuscular Hemoglobin 29.5 pg (25-34) Mean Corpuscular Hemoglobin Concent 34.9 g/dl (32-36) Platelet Count 226 K/uL (130-400) Mean Platelet Volume 8.8 fL (7.4-10.4) Neutrophils (%) (Auto) 60.0 % Lymphocytes (%) (Auto) 27.8 % Monocytes (%) (Auto) 10.1 % Eosinophils (%) (Auto) 1.4 % Basophils (%) (Auto) 0.4 % Neutrophils # (Auto) 4.55 K/uL (1.4-6.5) Lymphocytes # (Auto) 2.11 K/uL (1.2-3.4) Monocytes # (Auto) 0.77 K/uL (0.11-0.59) Eosinophils # (Auto) 0.11 K/uL (0-0.5) Basophils # (Auto) 0.03 K/uL (0-0.2) RDW Standard Deviation 40.2 fL (36.4-46.3) RDW Coefficient of Variation 13.2 % (11.5-14.5) Immature Granulocyte % (Auto) 0.3 % Immature Granulocyte # (Auto) 0.02 K/uL (0.00-0.02) Anion Gap 9.0 mmol/L (3-11) Est Creatinine Clear Calc Drug Dose 193.7 ml/min Estimated GFR () 132.4 Estimated GFR (Non- 114.3 BUN/Creatinine Ratio 16.1 (10-20) Calcium Level 8.5 mg/dl (8.5-10.1) Total Bilirubin 1.0 mg/dl (0.2-1) Direct Bilirubin 0.2 mg/dl (0-0.2) Aspartate Amino Transf (AST/SGOT) 28 U/L (15-37) Alanine Aminotransferase (ALT/SGPT) 49 U/L (12-78) Alkaline Phosphatase 62 U/L (45-117) Troponin I < 0.015 ng/ml (0-0.045) Total Protein 7.3 gm/dl (6.4-8.2) Albumin 3.8 gm/dl (3.4-5.0) Lipase 101 U/L (73-393) Beta-Hydroxybutyric Acid 3.55 mg/dL (0.2-2.81) Venous Blood pH 7.42 (7.36-7.41) Venous Blood Partial Pressure CO2 45 mmHg (38.0-50.0) Venous Blood Partial Pressure O2 38 mmHg Venous Blood HCO3 29 mmol/L Venous Blood Oxygen Saturation 70.7 % Venous Blood Base Excess 3.6 mEq/L Medications Administered Medications (Trade) Dose Ordered Sig/Mario Alberto Route Start Time Stop Time Status Last Admin Dose Admin Sodium Chloride 1,000 ml @ 999 mls/hr Q1H1M STAT IV 08/09/17 03:05 08/09/17 04:05 ME 08/09/17 03:22 999 MLS/HR Metoclopramide HCl (Reglan Inj) 10 mg NOW STAT IV 08/09/17 03:05 08/09/17 03:10 DC 08/09/17 03:20 10 MG Acetaminophen 100 ml @ 400 mls/hr NOW STAT IV 08/09/17 03:05 08/09/17 03:19 DC 08/09/17 03:21 400 MLS/HR Promethazine HCl 25 mg/Sodium Chloride 51 ml @ 204 mls/hr NOW STAT IV 08/09/17 05:59 08/09/17 06:13 DC 08/09/17 05:59 204 MLS/HR Medical Decision CC: Patient presenting with complaint of abdominal pain and vomiting Interpretation of Labs: No leukocytosis, no anemia, hyperglycemia, no other significant electrolyte abnormalities, normal renal function, normal liver enzymes and lipase. He is not acidotic, and no significant elevation of serum ketones. Troponin is negative. Differential Diagnosis: Includes, but not limited to intractable nausea/vomiting , gastroparesis, gastritis, gastroenteritis, constipation, acute WA, DKA, dehydration, among others. Medication Reconciliation: I attest that I have personally reviewed the patient' s current medication list. Vital signs review: I reviewed the patient's vital signs and interpret them as follows: T: Afebrile; BP: Hypertensive; HR: Tachycardic; RR: Within normal limits; Pulse Ox: Within normal limits on room air. Blood pressure screening: The patient was found to have an elevated blood pressure and was referred to their primary doctor for recheck and further treatment. Summary: Patient was evaluated at bedside, history of physical exam performed. Patient is alert and in no acute distress, resting in the stretcher. He has diffuse abdominal tenderness on exam, most prominent in the lower quadrants, no rebound tenderness or guarding. Patient's chart was reviewed, noting his visit from earlier this morning with unremarkable labs and a negative CT abdomen/pelvis. Patient states that he felt much better this morning after receiving IV fluids and Tylenol, he is requesting these again plus something for nausea. Orders were placed at bedside for repeat labs, IV fluids for hydration, IV Tylenol for pain, IV Reglan for nausea and vomiting, EKG to evaluate for ACS. Patient discussed with Dr. Sosa, who agrees with my assessment and plan. Labs reviewed as above, no significant abnormalities. All imaging from ED visit earlier today was reviewed, CT abdomen/pelvis was noted to be unremarkable. Patient reassessed multiple times throughout ED stay, he continues to complain of nausea, however he has been able to tolerate some PO fluids. I discussed all results patient and explained to him that I do not have any medical reason to admit him. He is continued to tolerate PO fluids, and overall states he is feeling somewhat better. Patient was instructed to follow closely with his PCP for further management, and was discharged home in stable condition and ambulatory. Impression Primary Impression: Nausea and vomiting Additional Impression: Generalized abdominal pain Departure Information Dispostion Home / Self-Care Condition GOOD Prescriptions Promethazine (Phenergan Suppository) 25 Mg Supp 25 MG KY Q4H Y for Nausea, #6 SUPP Prov: Rhea Zepeda CRNP 08/09/17 Referrals Velasquez Valencia M.D. (PCP) Patient Instructions ED Diet Anita, ED Nausea Vomiting, My [facility] Additional Instructions You have been treated in the Emergency Department your Abdominal Pain and nausea /vomiting. Laboratory results and imaging studies have ruled out any emergent causes for your abdominal pain which would warrant admission or surgery. You have been prescribed Phenergan suppositories to be used as needed for any severe nausea or vomiting. Take as prescribed. For pain control, you can use the following [id number] medicines (if >12 yo): - Regular strength (325mg/tab) Tylenol (acetaminophen) 2 tabs every 4-6 hours as needed. Do not exceed 10 tablets in a 24 hour period. Avoid taking more than 3000 mg of Tylenol per day. This includes any other sources of acetaminophen you may take on a regular basis. - Regular strength (200 mg/tab) Advil (ibuprofen) 1-2 tabs every 4-6 hours as needed. Do not exceed a dose of 2400 mg per day. Drink plenty of fluids and stay well hydrated. Stick with bland foods until you are feeling back to normal. You should follow-up with your Primary Care Provider in the next 1-2 days from today's visit. Return to the emergency department for severe worsening pain, fever/chills/ feeling ill, worsening nausea/vomiting or vomiting blood, blood in your stool or urine. Problem Qualifiers Primary Impression: Nausea and vomiting Vomiting type: unspecified Vomiting Intractability: non-intractable Qualified Codes: R11.2 - Nausea with vomiting, unspecified
[2017-08-09 03:17] LABS: BASO % 0.4 %; BASO ABS # 0.03 K/uL (0-0.2); COMPLETE YES; EOS % 1.4 %; HEMATOCRIT 39.2 % (42-52); IG% 0.3 %; LYMPH % 27.8 %; LYMPH ABS # 2.11 K/uL (1.2-3.4); MEAN CELL VOLUME 84.3 fL (80-100); MEAN CORPUSCULAR HEMOGLOBIN 29.5 pg (25-34); MEAN CORPUSCULAR HGB CONC 34.9 g/dl (32-36); MEAN PLATELET VOLUME 8.8 fL (7.4-10.4); MONO % 10.1 %; PLATELET COUNT 226 K/uL (130-400); RED BLOOD COUNT 4.65 M/uL (4.7-6.1); WHITE BLOOD COUNT 7.59 K/uL (4.8-10.8)
[2017-08-09 03:46] LABS: ALKALINE PHOSPHATASE 62 U/L (45-117); ALT/SGPT 49 U/L (12-78); AST/SGOT 28 U/L (15-37); BETA-HYDROXYBUTYRATE 3.55 mg/dL (0.2-2.81); BLOOD UREA NITROGEN 12 mg/dl (7-18); BUN/CREATININE RATIO 16.1 (10-20); CALCIUM 8.5 mg/dl (8.5-10.1); CARBON DIOXIDE 26 mmol/L (21-32); CHLORIDE 102 mmol/L (98-107); CREATININE 0.72 mg/dl (0.60-1.40); GLUCOSE 179 mg/dl (70-99); POTASSIUM 3.3 mmol/L (3.5-5.1); SODIUM 137 mmol/L (136-145)
[2017-08-09 03:46] LABS: VEN BLD GAS O2 SATURATION 70.7 %; VEN BLOOD GAS BASE EXCESS 3.6 mEq/L; VENOUS BLOOD GAS PCO2 45 mmHg (38.0-50.0); VENOUS BLOOD GAS PO2 38 mmHg
[2017-08-09] MEDS ORDERED: PROMETHAZINE HCL INJ 25 MG in SODIUM CHLORIDE 0.9% 50ML 50 ML IV STA (05:59)
[2017-08-09 06:20] VITALS: BP 190/105; PULSE 80; O2SAT 97
[2017-08-09] MEDS ORDERED: PROM1SUP19 PR (06:25)
== END 2017-08-09 06:57 | disposition home or self-care (01) ==
LOC: EDBD 02:33 → C.EDB 02:35
DX: R10.84 Generalized abdominal pain (principal); R11.2 Nausea with vomiting, unspecified; F17.210 Nicotine dependence, cigarettes, uncomplicated; F32.9 Major depressive disorder, single episode, unspecified; Z79.899 Other long term (current) drug therapy; I10 Essential (primary) hypertension; E11.9 Type 2 diabetes mellitus without complications; K58.9 Irritable bowel syndrome, unspecified; F79 Unspecified intellectual disabilities; G47.33 Obstructive sleep apnea (adult) (pediatric); Z79.4 Long term (current) use of insulin

== ENCOUNTER 2017-08-26 16:45 | Emergency (ER) | payer OTHER ==
[~2017-08-26] VITALS: Ht 190.5 cm; Wt 131.0 kg
[~2017-08-26 16:45] MED LIST changes: +PROM1SUP19 PR
[2017-08-26 16:48] VITALS: TEMP 36.6; Ht 190.5 cm; Wt 131.0 kg
[2017-08-26] MEDS ORDERED: ACETAMINOPHEN 500 MG TAB PO STA (17:28)
[2017-08-26] MEDS ORDERED: CLIN300C2 PO (17:29)
[2017-08-26] MEDS ORDERED: SULF800T23 PO (17:29)
[2017-08-26] MEDS ORDERED: SULFAMETHOXAZOLE/TRIMETHOPRIM DS 800/160MG TAB PO ONE (17:30)
[2017-08-26] MEDS ORDERED: CLINDAMYCIN HCL 150 MG CAP PO ONE (17:30)
[2017-08-26 17:52] VITALS: BP 141/67; PULSE 129; O2SAT 96
--- NOTE | 2017-08-27 23:25 | EMERGENCY ROOM VISIT NOTE ---
History First contact with patient: 17:07 Chief Complaint: LEG PAIN,LEG INJURY Stated Complaint: SEVERE LEFT FOOT AND LEG PAIN History of Present Illness The patient is a 41 year old male who presents to the Emergency Room with complaints of pain and swelling to his left foot that is now radiating up his left leg. The patient states that he has had symptoms for the past 2 days. He is a diabetic and is well-known to the emergency department due to frequency of visits. The patient does not recall injury or trauma. He has not had fever or chills. He has not taken anything [id number] for his discomfort. He is able to ambulate, however wearing his boots worsens the discomfort. He rates his pain a 9/10. Review of Systems More than 10 systems were reviewed and otherwise negative with the exception of history of present illness. Past Medical/Surgical History Medical Problems: (1) Depression (2) Depression (3) DM type 2 (diabetes mellitus, type 2) (4) Gastroparesis (5) HTN (hypertension) (6) IBS (irritable bowel syndrome) (7) Intellectual disability (8) Intellectual disability (9) Lumbago (10) Mental retardation (11) Nicotine abuse (12) Nicotine dependence (13) NSVT (nonsustained ventricular tachycardia) (14) Obesity (15) Obstructive sleep apnea (16) Sepsis (17) Stroke-like symptoms Surgical Problems: (1) S/P left knee arthroscopy (2) S/P tonsillectomy Social History Problems: (1) Alcohol abuse Family History Cancer Diabetes mellitus MOTHER GRANDMOTHER UNCLE AUNT Gallbladder disease Heart disease Hypertension MOTHER FATHER Lung disease Social History Smoking Status: Current Every Day Smoker Alcohol Use: heavy Drug Use: none Marital Status: Housing Status: lives with family Occupation Status: employed, other Current/Historical Medications Scheduled Acetaminophen (Tylenol), 1,000 MG PO BID Aripiprazole (Aripiprazole), 10 MG PO HS Aspirin (Aspirin Ec), 81 MG PO DAILY Atorvastatin (Lipitor), 40 MG PO QAM Clindamycin Hcl (Cleocin), 300 MG PO QID Duloxetine Hcl (Cymbalta), 60 MG PO QAM Gabapentin (Gabapentin), 400 MG PO TID Gabapentin (Gabapentin), 600 MG PO TID Insulin Aspart (Novolog Flexpen), 1 DOSE SC PC Insulin Glargine (Lantus Solostar), 38 UNITS SC BID Sulfa/Trimethoprim (Bactrim Ds 800MG/160MG), 1 TAB PO BID Scheduled PRN Diclofenac Sodium (Topical) (Voltaren 1% Top Gel), 1 APPLN TOP QID PRN for Pain Nicotine Polacrilex (Nicorelief), 1 PIECE PO DIRECTED PRN for NICOTINE CRAVINGS Promethazine (Phenergan Suppository), 25 MG SC Q4H PRN for Nausea Tramadol HCl (Tramadol HCl), 25 MG PO Q8 PRN for Pain Physical Exam Vital Signs Date Time Temp Pulse Resp B/P (MAP) Pulse Ox O2 Delivery O2 Flow Rate FiO2 08/26/17 17:52 129 18 141/67 96 08/26/17 16:48 36.6 135 18 159/90 97 Room Air Physical Exam VITALS: Vitals are noted on the nurse's note and reviewed by myself. GENERAL: Well-developed, well-nourished, white male, who is in no acute distress and resting comfortably. Patient is cooperative with the examination. HEART: Tachycardic rate and rhythm without murmurs gallops or rubs. LUNGS: Clear to auscultation bilaterally without wheezes, rales or rhonchi. No retractions or accessory muscle use. MUSCULOSKELETAL: On the superior aspect of the left foot is a roughly 4 x 5 centimeter patch of erythema consistent with cellulitis. There is no lymphangitic streaking. No purulence or abscess noted. The patient has full sensation and range of motion of the toes and ankle. Medical Decision & Procedures Medications Administered Medications (Trade) Dose Ordered Sig/Mario Alberto Route Start Time Stop Time Status Last Admin Dose Admin Trimethoprim/ Sulfamethoxazole (Septra Ds 800/ 160MG Tab) 1 tab NOW ONCE PO 08/26/17 17:30 08/26/17 17:31 DC 08/26/17 17:47 1 TAB Clindamycin HCl (Cleocin Cap) 300 mg NOW ONCE PO 08/26/17 17:30 08/26/17 17:31 DC 08/26/17 17:47 300 MG Acetaminophen (Tylenol Tab) 1,000 mg NOW STAT PO 08/26/17 17:28 08/26/17 17:30 DC 08/26/17 17:47 1,000 MG ED Course Physical exam and history were performed. Nursing notes, EMR, and Medication List were personally reviewed. Patient appears to have a cellulitis of the top of his left foot. The patient is allergic to Keflex, and I discussed treatment options with the pharmacy, who recommended Bactrim and clindamycin. The patient was given initial doses of both of these here in the department. He will be placed on a continuation course of these medications. The patient was also given a dose of Tylenol here in the department. Overall the patient appears well for discharge home. He is a diabetic and has had sepsis in the past. He is afebrile here but does have some very mild tachycardia. I do not suspect that he is septic at this time, however he will need very close follow-up to ensure this improves. The patient will be given a note for work and instructions to follow-up with his primary care physician closely in the next few days. If he is unable to be seen by his PCP I did recommend that he return to the ER for evaluation. The patient was pleased with this and voiced understanding. The chart was completed utilizing [employer] Voice Recognition Software. Grammatical errors, random word insertions, pronoun errors, and incomplete sentences are an occasional consequence of this system due to software limitations, ambient noise, and hardware issues. Any formal questions or concerns about the content, text, or information contained within the body of this dictation should be directly addressed to the provider for clarification. . Medical Decision Differential diagnosis: Etiologies such as cellulitis, abscess, MRSA infection, DVT, necrotizing fasciitis, dermatitis, drug eruption, as well as others were entertained.. Impression Primary Impression: Cellulitis of left foot Departure Information Dispostion Home / Self-Care Condition GOOD Prescriptions Clindamycin Hcl (CLEOCIN) 300 Mg Cap 300 MG PO QID for 10 Days, #40 CAP Prov: Eugenio Alvarez PA-C 08/26/17 Sulfa/Trimethoprim (Bactrim Ds 800MG/160MG) Tab 1 TAB PO BID for 10 Days, #20 TAB Prov: Eugenio Alvarez PA-C 08/26/17 Referrals No Doctor, Assigned Velasquez Valencia M.D. (PCP) Forms HOME CARE DOCUMENTATION FORM, Work Instructions, Additional Instructions: Patient was seen and evaluated in the emergency department for medica care. Return to work on 08/28/2017. Please excuse. IMPORTANT VISIT INFORMATION Patient Instructions My [facility] Additional Instructions You were seen and evaluated today on an emergency basis only. This is not a substitute for, or an effort to provide, complete comprehensive medical care. It is not possible to recognize and treat all injuries or illnesses in a single emergency department visit. For this reason it is recommended that you followup with your primary care physician in the next 3-4 days for recheck of your condition. If you are unable to be seen by your primary care physician please return ER for a recheck. Trimethoprim-Sulfamethoxazole(Bactrim DS): Take one pill twice daily for 10 days for your skin infection. All antibiotics can cause diarrhea. If this occurs and you feel worse or it does not resolve in 1-2 days follow up with your doctor or return to the Emergency Department as this could be signs of serious underlying problems. Any medication can cause an allergic reaction, stop the pills immediately and return to the ER for rash, hives, breathing difficulties, or swelling. Clindamycin 4 times a day for 10 days. You are welcome to return to the emergency department anytime with new, worsening, or concerning symptoms. Work Instructions Additional Work Instructions: Patient was seen and evaluated in the emergency department for medical care. Return to work on 08/28/2017. Please excuse.
== END 2017-08-26 17:54 | disposition home or self-care (01) ==
LOC: C.EDB 16:46 → C.EDC 17:54
DX: L03.116 Cellulitis of left lower limb (principal); F32.9 Major depressive disorder, single episode, unspecified; E11.9 Type 2 diabetes mellitus without complications; K31.84 Gastroparesis; I10 Essential (primary) hypertension; K58.9 Irritable bowel syndrome, unspecified; F79 Unspecified intellectual disabilities; E66.9 Obesity, unspecified; G47.33 Obstructive sleep apnea (adult) (pediatric); I47.2 Ventricular tachycardia; F10.10 Alcohol abuse, uncomplicated; Z80.9 Family history of malignant neoplasm, unspecified; Z83.3 Family history of diabetes mellitus; Z83.79 Family history of other diseases of the digestive system; Z82.49 Family history of ischemic heart disease and other diseases of the circulatory system; Z83.6 Family history of other diseases of the respiratory system; F17.210 Nicotine dependence, cigarettes, uncomplicated; Z79.82 Long term (current) use of aspirin; Z79.4 Long term (current) use of insulin; Z79.899 Other long term (current) drug therapy

== ENCOUNTER 2017-08-28 04:14 | Inpatient (IN) | payer OTHER ==
[~2017-08-28] VITALS: Ht 190.5 cm; Wt 130.0 kg
[~2017-08-28 04:14] MED LIST changes: +CLIN300C2 PO; +SULF800T23 PO
[2017-08-28] MEDS ORDERED: SODIUM CHLORIDE 0.9% 500ML 500 ML IV STA (04:38)
[2017-08-28 05:02] LABS: BASO % 0.2 %; BASO ABS # 0.03 K/uL (0-0.2); COMPLETE YES; HEMATOCRIT 39.8 % (42-52); LYMPH % 7.4 %; LYMPH ABS # 1.06 K/uL (1.2-3.4); MEAN CELL VOLUME 86.1 fL (80-100); MEAN CORPUSCULAR HEMOGLOBIN 29.7 pg (25-34); MEAN CORPUSCULAR HGB CONC 34.4 g/dl (32-36); MEAN PLATELET VOLUME 9.4 fL (7.4-10.4); MONO % 10.1 %; NEUT % 80.3 %; PLATELET COUNT 279 K/uL (130-400); RED BLOOD COUNT 4.62 M/uL (4.7-6.1); WHITE BLOOD COUNT 14.31 K/uL (4.8-10.8)
[2017-08-28] MEDS ORDERED: IMIPENEM/CILASTATIN IV 500 MG in DEXTROSE 5% 100ML 100 ML IV STA (05:10)
[2017-08-28] MEDS ORDERED: DAPTOMYCIN IV SCH (05:15)
[2017-08-28] MEDS ORDERED: DAPTOmycin IV 780 MG in SODIUM CHLORIDE 0.9% 50ML 50 ML IV ONE (05:15)
[2017-08-28] MEDS ORDERED: INSULIN GLULISINE 100 UNIT/ML SC ONE (05:30)
[2017-08-28 05:31] LABS: ALB/GLOB RATIO 0.6 (0.9-2); BETA-HYDROXYBUTYRATE 0.5 mg/dL (0.2-2.81); BUN/CREATININE RATIO 6.7 (10-20); CALCIUM 9.3 mg/dl (8.5-10.1); CREATININE 1.03 mg/dl (0.60-1.40)
[2017-08-28] MEDS ORDERED: POLY335019 PO (05:36)
[2017-08-28] MEDS ORDERED: NovoLIN-R INSULIN PER UNIT CHARGE SQ ONE (05:45)
[2017-08-28 06:32] LABS: URINE APPEARANCE CLEAR (CLEAR); URINE BILIRUBIN NEG (NEG); URINE COLOR YELLOW; URINE NITRITE NEG (NEG); URINE SPECIFIC GRAVITY 1.038 (1.000-1.030); UROBILINOGEN POS (NEG); ZZUR CULT IF INDIC CLEAN CATCH NO
[2017-08-28 06:40] LABS: MANUAL MICROSCOPIC REQUIRED? YES; REVIEW REQ? NO
[2017-08-28 06:44] LABS: URINE BACTERIA NEG (NEG); URINE RBC 0-4 /hpf (0-4)
--- NOTE | 2017-08-28 07:06 | History and Physical ---
History & Physical Date & Time of Service: Aug 28, 2017 at 06:29 Chief Complaint: High Sugar Level,Vomiting Primary Care Physician: Velasquez Valencia M.D. History of Present Illness Source: patient, clinic records, hospital records 41 Yr male with PMH of IDDM, HTN, HLP, Tobacco use,Depression, non complaint present to the ER for hyperglycemia an left foot redness and tenderness. Pt was in the ER couple days ago for left foot pain. He was given a script for abx. Pt said that he started to take 2 abx yesterday, he cannot recall the name. Pt said that the left dorsal area of the left foot is very tender. He said that the pain is 6/10 and tender to touch. The ER physician said that the foot looks worst when he saw him couple days ago. redness is worsening and associated toes macerated and drainage. Pt denies any fever and chills. He said that he has been wearing his boot that seems to make it worst. Pt said that last night when he check his blood sugar, it read as error in the glucometer. He said that he has been drinking sweet ice tea. Pt said that because his glucometer was not able to check it, and he knew that he was high so he decided to come to the ER to check his BS. Pt denies any chest pain, palpitation, dizziness, blurry vision , fever, chills and SOB. Past Medical/Surgical History Medical Problems: (1) Depression Status: Chronic (2) DM type 2 (diabetes mellitus, type 2) Status: Chronic (3) Gastroparesis Status: Chronic (4) HTN (hypertension) Status: Chronic (5) IBS (irritable bowel syndrome) Status: Chronic Surgical Problems: (1) S/P left knee arthroscopy Status: Chronic (2) S/P tonsillectomy Status: Chronic Family History Cancer Diabetes mellitus MOTHER GRANDMOTHER UNCLE AUNT Gallbladder disease Heart disease Hypertension MOTHER FATHER Lung disease Social History Smoking Status: Current Every Day Smoker Drug Use: none Marital Status: Housing status: lives with family 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, other Immunizations History of Influenza Vaccine: Yes Influenza Vaccine Date: Jul 24, 2016 History of Tetanus Vaccine?: Unknown History of Pneumococcal: Yes Pneumococcal Date: Feb 09, 2006 History of Hepatitis B Vaccine: No Multi-Drug Resistant Organisms History of MDRO: No Allergies Coded Allergies: Cephalosporins (Verified Allergy, Unknown, CECLOR, 08/13/17) NSAIDs (Verified Adverse Reaction, Unknown, gastroparesis, kidney problems , 08/13/17) Home Medications Scheduled Aripiprazole (Aripiprazole), 10 MG PO HS Aspirin (Aspirin Ec), 81 MG PO DAILY Atorvastatin (Lipitor), 1 TAB PO DAILY Clindamycin Hcl (Cleocin), 300 MG PO QID Duloxetine Hcl (Cymbalta), 60 MG PO QAM Gabapentin (Gabapentin), 400 MG PO TID Gabapentin (Gabapentin), 600 MG PO TID Insulin Aspart (Novolog Flexpen), 1 DOSE SC PC Insulin Glargine (Lantus Solostar), 38 UNITS SC BID Lisinopril (Prinivil), 1 TAB PO DAILY Sulfa/Trimethoprim (Bactrim Ds 800MG/160MG), 1 TAB PO BID Scheduled PRN Nicotine Polacrilex (Nicorelief), 1 PIECE PO DIRECTED PRN for NICOTINE CRAVINGS Polyethylene Glycol 3350 (Miralax), 17 GM PO DAILY PRN for Constipation Tramadol HCl (Tramadol HCl), 25 MG PO Q8 PRN for Pain Review of Systems Constitutional: No fever, No chills Eyes: No worsening of vision, No eye pain ENT: No nasal symptoms Respiratory: No cough, No sputum, No wheezing, No shortness of breath Cardiovascular: No chest pain, No claudication, No palpitations Abdomen: No pain, No nausea, No diarrhea Musculoskeletal: No calf pain Genitourinary - Male: No hematuria, No dysuria Neurologic: No memory loss, No weakness Psychiatric: No substance abuse Endocrine: + excessive thirst, No fatigue Hematologic / Lymphatic: No abnormal bleeding/bruising Integumentary: + problem reported (left dorsal foot erythema), No rash, No itch Physical Exam Vital Signs Date Time Temp Pulse Resp B/P (MAP) Pulse Ox O2 Delivery O2 Flow Rate FiO2 08/28/17 04:22 36.6 125 24 147/80 97 Room Air General Appearance: WD/WN, no apparent distress Head: normocephalic, atraumatic Eyes: PERRL, EOMI ENT: hearing grossly normal Neck: no JVD, trachea midline Respiratory/Chest: normal breath sounds, no respiratory distress, no accessory muscle use Cardiovascular: no JVD, no murmur, + tachycardia Abdomen/GI: normal bowel sounds, non tender, soft Back: no CVA tenderness Extremities/Musculoskelatal: no calf tenderness Neurologic/Psych: no motor/sensory deficits, alert, normal mood/affect, oriented x 3 Skin: normal color, warm/dry Diagnostics Laboratory Results Results Past 24 Hours Test 08/28/17 04:34 08/28/17 04:50 08/28/17 04:56 08/28/17 06:20 Range/Units Bedside Glucose 502 70-99 mg/dl White Blood Count 14.31 4.8-10.8 K/uL Red Blood Count 4.62 4.7-6.1 M/uL Hemoglobin 13.7 14.0-18.0 g/dL Hematocrit 39.8 42-52 % Mean Corpuscular Volume 86.1 80-100 fL Mean Corpuscular Hemoglobin 29.7 25-34 pg Mean Corpuscular Hemoglobin Concent 34.4 32-36 g/dl Platelet Count 279 130-400 K/uL Mean Platelet Volume 9.4 7.4-10.4 fL Neutrophils (%) (Auto) 80.3 % Lymphocytes (%) (Auto) 7.4 % Monocytes (%) (Auto) 10.1 % Eosinophils (%) (Auto) 1.0 % Basophils (%) (Auto) 0.2 % Neutrophils # (Auto) 11.48 1.4-6.5 K/uL Lymphocytes # (Auto) 1.06 1.2-3.4 K/uL Monocytes # (Auto) 1.45 0.11-0.59 K/uL Eosinophils # (Auto) 0.15 0-0.5 K/uL Basophils # (Auto) 0.03 0-0.2 K/uL RDW Standard Deviation 40.5 36.4-46.3 fL RDW Coefficient of Variation 12.7 11.5-14.5 % Immature Granulocyte % (Auto) 1.0 % Immature Granulocyte # (Auto) 0.14 0.00-0.02 K/uL Sodium Level 127 136-145 mmol/L Potassium Level 4.0 3.5-5.1 mmol/L Chloride Level 90 98-107 mmol/L Carbon Dioxide Level 26 21-32 mmol/L Anion Gap 11.0 3-11 mmol/L Blood Urea Nitrogen 7 7-18 mg/dl Creatinine 1.03 0.60-1.40 mg/dl Est Creatinine Clear Calc Drug Dose 134.3 ml/min Estimated GFR () 102.6 Estimated GFR (Non- 88.6 BUN/Creatinine Ratio 6.7 10-20 Random Glucose 501 70-99 mg/dl Calcium Level 9.3 8.5-10.1 mg/dl Total Bilirubin 0.5 0.2-1 mg/dl Aspartate Amino Transf (AST/SGOT) 8 15-37 U/L Alanine Aminotransferase (ALT/SGPT) 18 12-78 U/L Alkaline Phosphatase 94 45-117 U/L Total Protein 8.3 6.4-8.2 gm/dl Albumin 3.1 3.4-5.0 gm/dl Globulin 5.2 2.5-4.0 gm/dl Albumin/Globulin Ratio 0.6 0.9-2 Beta-Hydroxybutyric Acid 0.50 0.2-2.81 mg/dL Bedside Lactic Acid Venous 2.60 0.90-1.70 mmol/L Microbiology Results 08/28/17 Blood Culture, Received Pending 08/28/17 Blood Culture, Received Pending 08/28/17 Gram Stain, Received Pending 08/28/17 Wound Culture, Received Pending No Infiltrate Impression Assessment and Plan Sepsis Left foot Cellulitis Meet sepsis Criteria with elevated WBC, Tachycardia with elevated lactic acid Received dapto and imipenem Blood cx and wound cx collected in the ER received 1L IVF Will continue IVF repeat lactic acid Monitor CBC Wound care consult daily wound care Uncontrolled Diabetes BS above 500 Last A1c: 9.2 on 07/27/17 will start on insulin drip for now continue monitor Pharmacy consult for glycemic management Hyponatremia Na 127 Secondary to hyperglycemia corrected NA 137 Continue monitor HTN On lisinopril 10 mg continue monitor BP HLP: Lipitor 10mg daily Depression: continue home meds Tobacco use disorder: Nicotine patch H/O Gastroparesis/IBS stable DVT Px: on heparin subq Code Status: Full Code Level of Care Med/Surg Resuscitation Status FULL RESUSCITATION VTE Prophylaxis VTE Risk Assessment Done? Y/N: Yes Risk Level: Moderate Given or contraindicated: Unfractionated heparin SQ
[2017-08-28] MEDS ORDERED: ATOR10TA82 PO (07:12)
[2017-08-28] MEDS ORDERED: LISI10TA PO (07:12)
[2017-08-28] MEDS ORDERED: INSULIN PROTOCOL GOAL RANGE ONE (07:15)
[2017-08-28] MEDS ORDERED: INSULIN IV INFUSION PROTOCOL SCH (07:41)
[2017-08-28] MEDS ORDERED: PHARMACY GLYCEMIC MGMT CONSULT PRN (07:42)
[2017-08-28] MEDS ORDERED: DEXTROSE 50% 50 ML SYR IV PRN (07:45)
[2017-08-28] MEDS ORDERED: GLUCAGON FOR INJ 1 MG VIAL SQ PRN (07:45)
[2017-08-28] MEDS ORDERED: GLUCOSE 10 TABS/TUBE PO PRN (07:45)
[2017-08-28] MEDS ORDERED: GLUCOSE 40% GEL 15 GM TUBE PO PRN (07:45)
[2017-08-28 08:37] VITALS: BP 125/69; PULSE 117; TEMP 37.3; O2SAT 96
[2017-08-28] MEDS ORDERED: PIPERACILL/TAZOBAC CONSULT ACTIVE PRN (08:45)
[2017-08-28] MEDS ORDERED: VANCOMYCIN CONSULT ACTIVE PRN (08:45)
[2017-08-28] MEDS: SODIUM CHLORIDE 0.9% 1000ML 1,000 ML IV SCH ×2 (08:52→16:21)
[2017-08-28] MEDS: ATORVASTATIN 10 MG TAB PO SCH (08:52)
[2017-08-28] MEDS: ASPIRIN 81 MG ECTAB PO SCH (08:52)
[2017-08-28] MEDS: GABAPENTIN 600 MG TAB PO SCH ×3 (08:52→21:08)
[2017-08-28] MEDS: DULOXETINE HCL 60 MG CAP PO SCH (08:52)
[2017-08-28] MEDS: LISINOPRIL 10 MG TAB PO SCH (08:53)
[2017-08-28] MEDS: GABAPENTIN 400 MG CAP PO SCH ×3 (08:53→21:08)
[2017-08-28] MEDS ORDERED: INSULIN GLARGINE SOLOSTAR 100 UNITS/ML 3 ML PEN SC ONE (09:00)
[2017-08-28] MEDS ORDERED: INSULIN ASPART 100 UNITS/ML 3 ML PEN SC SCH (09:00)
--- NOTE | 2017-08-28 09:18 | Pharmacy Progress Note ---
Glycemic Control Intl Consult Date of Service Aug 28, 2017. Scope Glycemic Pharmacist consulted by Dr Yeung on 08/28/17 for glycemic control and to write orders per [facility] inpatient glycemic control protocol Objective Weight (Kilograms): 129.900 Accuchecks BSG (last 24hrs): Test 08/28/17 04:34 08/28/17 04:50 08/28/17 06:04 Bedside Glucose 502 mg/dl (70-99) 434 mg/dl (70-99) Random Glucose 501 mg/dl (70-99) Laboratory Data (last 24hrs) Test 08/28/17 04:50 Anion Gap 11.0 mmol/L BUN/Creatinine Ratio 6.7 Blood Urea Nitrogen 7 mg/dl Creatinine 1.03 mg/dl Potassium Level 4.0 mmol/L Sodium Level 127 mmol/L White Blood Count 14.31 K/uL Red Blood Count 4.62 M/uL Hemoglobin 13.7 g/dL Hematocrit 39.8 % Mean Corpuscular Volume 86.1 fL Mean Corpuscular Hemoglobin 29.7 pg Mean Corpuscular Hemoglobin Concent 34.4 g/dl Platelet Count 279 K/uL Mean Platelet Volume 9.4 fL Neutrophils (%) (Auto) 80.3 % Lymphocytes (%) (Auto) 7.4 % Monocytes (%) (Auto) 10.1 % Eosinophils (%) (Auto) 1.0 % Basophils (%) (Auto) 0.2 % Neutrophils # (Auto) 11.48 K/uL Lymphocytes # (Auto) 1.06 K/uL Monocytes # (Auto) 1.45 K/uL Eosinophils # (Auto) 0.15 K/uL Basophils # (Auto) 0.03 K/uL HbA1c Item Value Date Time Hemoglobin A1c 9.2 % H 07/27/173 Estimated Average Glucose 217 mg/dl 07/27/17 2223 Recent Pertinent Medications Outpatient Anti-diabetic Regimen: * Hx of noncompliance * Lantus 38 units BID * Novolog scale Risk Factors for Insulin Resistance: * Infection * Diet Assessment & Plan ASSESSMENT: * 41 y/o male, well known to the pharmacy glycemic service, admitted with cellulitis/hyperglycemia * In most recent admission, it was noted that his A1c had started to climb, suggesting noncompliance * In ED, BSGs ~500 mg/dL and 10 units of Regular insulin SC given * BSGs have responded nicely and are now ~300 mg/dL * My plan will be to continue similar SQ regimen that has stabilized his blood sugars in the past and titrate as necessary * ADA & AACE recommend a goal blood sugar range 140-180 mg/dl for the majority of critically ill & non-critically ill patients. However, more stringent targets may be selected in individual cases. Will utilize more stringent goal of 110-140mg/dl based on patient age & comorbidities. Additionally, tighter glycemic control is warranted to facilitate wound/infection healing. PLAN FOR INPATIENT GLYCEMIC CONTROL: * Give Lantus 50 units X 1 this AM (BSGs in the 500's on admission) * Continue Lantus at 38 units SQ BID to start tonight * Initiate correction factor of 15 mg/dl/unit * Initiate carb ratio of 1 unit per 4 grams CHO consumed * Initiate goal range of Low 110 mg/dL - High 140 mg/dL * Please note that the plan above was derived based on current level of insulin resistance and hospital stress. These recommendations are appropriate for inpatient admission only. Plan of care upon discharge will need to be reassessed to avoid potential outpatient hypo/hyperglycemia. Thank you.
--- NOTE | 2017-08-28 09:24 | DIAGNOSTIC IMAGING REPORT ---
CHEST ONE VIEW PORTABLE CLINICAL HISTORY: 41 years-old Male presenting with sob. TECHNIQUE: Portable upright AP view of the chest was obtained. COMPARISON: 08/13/2017. FINDINGS: Cardiomediastinal silhouette normal. Mildly low lung volumes. No focal infiltrate. No large effusion or pneumothorax. Osseous structures normal. Upper abdomen normal. IMPRESSION: 1. No acute cardiopulmonary disease. Electronically signed by: Delgado Diaz M.D. 08/28/2017 9:23 AM Dictated Date/Time: 08/28/2017 9:22 AM
[2017-08-28] MEDS: INSULIN ASPART 100 UNITS/ML 3 ML PEN SC SCH ×5 (09:43→23:54)
[2017-08-28 10:17] VITALS: BP 125/69; PULSE 117; TEMP 37.3; BMI 35.8
[2017-08-28 10:18] LABS: BUN/CREATININE RATIO 8.2 (10-20); CALCIUM 8.7 mg/dl (8.5-10.1); CREATININE 0.73 mg/dl (0.60-1.40); POTASSIUM 3.9 mmol/L (3.5-5.1)
--- NOTE | 2017-08-28 11:46 | Pharmacy Progress Note ---
Pharmacy Abx Initial Consult Date of Service Aug 28, 2017. Pharmacy Dosing Scope Date of Consult: 08/28/17 Consultation requested by: Dr. Yeung Pharmacy is consulted to initiate Vancomycin and Zosyn IV dosing therapy, order appropriate labs and adjust drug dose/frequency. Subjective The patient is a 41 year old male admitted on Aug 28, 2017 at 06:28 with hyperglycemia and left foot redness and tenderness. Pt was recently in ER a few days ago for left foot pain and started on PO Bactrim x 2 days. PMH significant for IDDM, HTN, HL, Tobacco use, Depression. Objective Height (Feet): 6 Height (Inches): 3.00 Weight (Kilograms): 130.000 Vital Signs (Past 12Hrs) Vital Signs Past 12 Hours Date Time Temp Pulse Resp B/P (MAP) Pulse Ox O2 Delivery O2 Flow Rate FiO2 08/28/17 10: 37.3 117 20 125/69 Room Air 08/28/17 08:37 37.3 117 20 125/69 (87) 96 08/28/17 07:25 Room Air 08/28/17 06:20 119 16 150/93 97 Room Air 08/28/17 04:22 36.6 125 24 147/80 97 Room Air Lab Results (24Hrs) Test 08/28/17 04:34 08/28/17 04:50 08/28/17 04:56 08/28/17 06:04 POC Glucose 502 434 White Blood Count 14.31 Red Blood Count 4.62 Hemoglobin 13.7 Hematocrit 39.8 Mean Corpuscular Volume 86.1 Mean Corpuscular Hemoglobin 29.7 Mean Corpuscular Hemoglobin Concent 34.4 Platelet Count 279 Mean Platelet Volume 9.4 Neutrophils (%) (Auto) 80.3 Lymphocytes (%) (Auto) 7.4 Monocytes (%) (Auto) 10.1 Eosinophils (%) (Auto) 1.0 Basophils (%) (Auto) 0.2 Neutrophils # (Auto) 11.48 Lymphocytes # (Auto) 1.06 Monocytes # (Auto) 1.45 Eosinophils # (Auto) 0.15 Basophils # (Auto) 0.03 RDW Standard Deviation 40.5 RDW Coefficient of Variation 12.7 Immature Granulocyte % (Auto) 1.0 Immature Granulocyte # (Auto) 0.14 Sodium Level 127 Potassium Level 4.0 Chloride Level 90 Carbon Dioxide Level 26 Anion Gap 11.0 Blood Urea Nitrogen 7 Creatinine 1.03 Est Creatinine Clear Calc Drug Dose 134.3 Estimated GFR () 102.6 Estimated GFR (Non- 88.6 BUN/Creatinine Ratio 6.7 Random Glucose 501 Calcium Level 9.3 Total Bilirubin 0.5 Aspartate Amino Transferase (AST) 8 Alanine Aminotransferase (ALT) 18 Alkaline Phosphatase 94 Total Protein 8.3 Albumin 3.1 Globulin 5.2 Albumin/Globulin Ratio 0.6 Beta-Hydroxybutyric Acid 0.50 POC Lactic Acid Venous 2.60 Test 08/28/17 06:20 08/28/17 09:46 Urine Color YELLOW Urine Appearance CLEAR Urine pH 6.0 Urine Specific [place] 1.038 Urine Protein NEG Urine Glucose (UA) 3+ Urine Ketones NEG Urine Occult Blood NEG Urine Nitrite NEG Urine Bilirubin NEG Urine Urobilinogen POS Urine Leukocyte Esterase NEG Urine WBC (Auto) Urine RBC (Auto) Urine Hyaline Casts (Auto) Urine Epithelial Cells (Auto) Urine Bacteria (Auto) Urine RBC 0-4 Urine WBC 1-5 Urine Epithelial Cells 0-5 Urine Bacteria NEG Sodium Level 131 Potassium Level 3.9 Chloride Level 98 Carbon Dioxide Level 26 Anion Gap 7.0 Blood Urea Nitrogen 6 Creatinine 0.73 Est Creatinine Clear Calc Drug Dose 189.5 Estimated GFR () 131.7 Estimated GFR (Non- 113.6 BUN/Creatinine Ratio 8.2 Random Glucose 275 Lactic Acid Level 1.3 Calcium Level 8.7 Micro Results Date/Time Source Procedure Growth Status 08/28/17 05:13 Blood Blood Culture Pending Received 08/28/17 04:50 Blood Blood Culture Pending Received 08/28/17 05:10 Skin Toe Gram Stain - Final Resulted 08/28/17 05:10 Skin Toe Wound Culture Pending Resulted Risk Factors for Resistance * Antimicrobial use within the last 90 days - Bactrim x 2 days started 2 days ago Assessment & Plan Assessment 41 year old male admitted for LE Cellulitis, failed outpatient Bactrim PO x2 days Pt received IV Daptomycin and IV Primaxin in ED, will begin Vancomycin 24 hours after Dapto, and Zosyn 6 hours after Primaxin dose. Plan Vancomycin & Zosyn IV for treatment of Cellulitis of LE Vancomycin IV * Loading dose: 2750 mg (21 mg/kg) * Maintenance dose: 1750 mg IV (13.5 mg/kg) every 8 hours * Estimated pharmacokinetic parameters: T1/2 = 6.7hrs, Gian = 0.104/hr, Vd = 0.6 L/Kg * Goal trough level for Cellulitis ~ 15 mcg/mL * Trough level ordered for 08/30/17 prior to 0600 dose, this level will be drawn after patient has received 3 total doses * A less than traditional dose (13.5mg/kg instead of 15mg/kg) has been selected due to likelihood of drug accumulation in obese patient (BMI 35.8kg/m2) * May need to increase dose interval after first level is drawn and evaluated to prevent accumulation. Piperacillin/tazobactam * 3.375 g bolus administered over 30 minutes, then 3.375 g IV extended infusion every 8 hours for CrCl greater than 20 mL/min Pharmacy will continue to follow and will adjust dose/frequency as necessary. Thank you.
[2017-08-28] MEDS ORDERED: PIPERACILL/TAZOBAC IV 3.375 GM in DEXTROSE 5% 100ML IV ONE (12:00)
[2017-08-28] MEDS: HEPARIN SOD 5000 UNIT/0.5 ML CARP SQ SCH ×2 (14:01→21:08)
--- NOTE | 2017-08-28 14:46 | Progress Note ---
Internal Med Progress Note Date of Service: Aug 28, 2017. Provider Documentation: SUBJECTIVE: Seen and examined at bedside Reports LLE pain, swelling and erythema Denies chest pain, SOB, abd pain, dizziness No other complaints OBJECTIVE: Vital Signs-as noted below Physical Exam: General Appearance:Moderately built and nourished, no apparent distress Head: normocephalic, Atraumatic Eyes: normal inspection, EOMI, PERRL Neck: supple, Trachea midline Respiratory/Chest: Normal breath sounds, CTA Cardiovascular: S1, S2, No murmur Abdomen/GI:Soft, Non tender, Bowel sounds present Extremities/Musculoskelatal:normal inspection, Left LE foot erythema, swelling, Wound, +Drainage Neurologic/Psych:AAOX3, grossly no focal neurological deficits Skin: normal color, warm Lab data as noted below. ASSESSMENT & PLAN: Sepsis L foot Cellulitis Presented with elevated WBC, Tachycardia with elevated lactic acid Received Dapto and Imipenem in ED Blood/Wound Cultures:pending Continue IV fluids Continue Vanco and Zosyn Day # 2 Lactate normalized Wound care consulted Continue wound care Uncontrolled Diabetes Presented with BS above 500 Last A1c: 9.2 on 07/27/17 Continue Insulin therapy continue monitor Pharmacy consult for glycemic management Hyponatremia Secondary to hyperglycemia Continue monitor HTN On lisinopril 10 mg monitor HLP: Continue Lipitor Depression: continue home meds Tobacco use disorder: Nicotine patch H/O Gastroparesis/IBS stable DVT Px: heparin SQ Code Status: Full Code Disposition: Plan to discharge home when stable Vital Signs: Date Time Temp Pulse Resp B/P (MAP) Pulse Ox O2 Delivery O2 Flow Rate FiO2 08/28/17 10:17 37.3 117 20 125/69 Room Air 08/28/17 08:37 37.3 117 20 125/69 (87) 96 08/28/17 07:25 Room Air 08/28/17 06:20 119 16 150/93 97 Room Air 08/28/17 04:22 36.6 125 24 147/80 97 Room Air Lab Results: Results Past 24 Hours Test 08/28/17 04:34 08/28/17 04:50 08/28/17 04:56 08/28/17 06:04 Range/Units Bedside Glucose 502 434 70-99 mg/dl White Blood Count 14.31 4.8-10.8 K/uL Red Blood Count 4.62 4.7-6.1 M/uL Hemoglobin 13.7 14.0-18.0 g/dL Hematocrit 39.8 42-52 % Mean Corpuscular Volume 86.1 80-100 fL Mean Corpuscular Hemoglobin 29.7 25-34 pg Mean Corpuscular Hemoglobin Concent 34.4 32-36 g/dl Platelet Count 279 130-400 K/uL Mean Platelet Volume 9.4 7.4-10.4 fL Neutrophils (%) (Auto) 80.3 % Lymphocytes (%) (Auto) 7.4 % Monocytes (%) (Auto) 10.1 % Eosinophils (%) (Auto) 1.0 % Basophils (%) (Auto) 0.2 % Neutrophils # (Auto) 11.48 1.4-6.5 K/uL Lymphocytes # (Auto) 1.06 1.2-3.4 K/uL Monocytes # (Auto) 1.45 0.11-0.59 K/uL Eosinophils # (Auto) 0.15 0-0.5 K/uL Basophils # (Auto) 0.03 0-0.2 K/uL RDW Standard Deviation 40.5 36.4-46.3 fL RDW Coefficient of Variation 12.7 11.5-14.5 % Immature Granulocyte % (Auto) 1.0 % Immature Granulocyte # (Auto) 0.14 0.00-0.02 K/uL Sodium Level 127 136-145 mmol/L Potassium Level 4.0 3.5-5.1 mmol/L Chloride Level 90 98-107 mmol/L Carbon Dioxide Level 26 21-32 mmol/L Anion Gap 11.0 3-11 mmol/L Blood Urea Nitrogen 7 7-18 mg/dl Creatinine 1.03 0.60-1.40 mg/dl Est Creatinine Clear Calc Drug Dose 134.3 ml/min Estimated GFR () 102.6 Estimated GFR (Non- 88.6 BUN/Creatinine Ratio 6.7 10-20 Random Glucose 501 70-99 mg/dl Calcium Level 9.3 8.5-10.1 mg/dl Total Bilirubin 0.5 0.2-1 mg/dl Aspartate Amino Transf (AST/SGOT) 8 15-37 U/L Alanine Aminotransferase (ALT/SGPT) 18 12-78 U/L Alkaline Phosphatase 94 45-117 U/L Total Protein 8.3 6.4-8.2 gm/dl Albumin 3.1 3.4-5.0 gm/dl Globulin 5.2 2.5-4.0 gm/dl Albumin/Globulin Ratio 0.6 0.9-2 Beta-Hydroxybutyric Acid 0.50 0.2-2.81 mg/dL Bedside Lactic Acid Venous 2.60 0.90-1.70 mmol/L Test 08/28/17 06:20 08/28/17 09:46 Range/Units Urine Color YELLOW Urine Appearance CLEAR CLEAR Urine pH 6.0 4.5-7.5 Urine Specific [place] 1.038 1.000-1.030 Urine Protein NEG NEG Urine Glucose (UA) 3+ NEG Urine Ketones NEG NEG Urine Occult Blood NEG NEG Urine Nitrite NEG NEG Urine Bilirubin NEG NEG Urine Urobilinogen POS NEG Urine Leukocyte Esterase NEG NEG Urine WBC (Auto) 0-5 /hpf Urine RBC (Auto) 0-4 /hpf Urine Hyaline Casts (Auto) 0-5 /lpf Urine Epithelial Cells (Auto) 0-5 /lpf Urine Bacteria (Auto) NEG Urine RBC 0-4 0-4 /hpf Urine WBC 1-5 0-5 /hpf Urine Epithelial Cells 0-5 0-5 /lpf Urine Bacteria NEG NEG Sodium Level 131 136-145 mmol/L Potassium Level 3.9 3.5-5.1 mmol/L Chloride Level 98 98-107 mmol/L Carbon Dioxide Level 26 21-32 mmol/L Anion Gap 7.0 3-11 mmol/L Blood Urea Nitrogen 6 7-18 mg/dl Creatinine 0.73 0.60-1.40 mg/dl Est Creatinine Clear Calc Drug Dose 189.5 ml/min Estimated GFR () 131.7 Estimated GFR (Non- 113.6 BUN/Creatinine Ratio 8.2 1020 Random Glucose 275 70-99 mg/dl Lactic Acid Level 1.3 0.4-2.0 mmol/L Calcium Level 8.7 8.5-10.1 mg/dl Microbiology Results 08/28/17 Blood Culture, Received Pending 08/28/17 Blood Culture, Received Pending 08/28/17 Gram Stain - Final, Resulted 08/28/17 Wound Culture, Resulted Pending
[2017-08-28 15:23] VITALS: BP 130/72; PULSE 110; TEMP 37.3; O2SAT 94
[2017-08-28 15:30] VITALS: O2SAT 94
[2017-08-28] MEDS ORDERED: INSULIN GLARGINE SOLOSTAR 100 UNITS/ML 3 ML PEN SC SCH (21:00)
[2017-08-28] MEDS: PIPERACILL/TAZOBAC IV 3.375 GM in DEXTROSE 5% 100ML 100 ML IV SCH (21:01)
[2017-08-28] MEDS: ARIPIprazole TAB 10 MG TAB PO SCH (21:08)
[2017-08-28 23:36] VITALS: BP 151/68; PULSE 101; TEMP 36.9; O2SAT 94
--- NOTE | 2017-08-29 00:05 | EMERGENCY ROOM VISIT NOTE ---
History First contact with patient: 04:42 Chief Complaint: HYPERGLYCEMIA Stated Complaint: CELLULITIS OF LEFT FOOT, HYPERGLYCEMIA Nursing Triage Summary: pt reports I checked my sugar at 2330 when I took my night time insulin and my meter reads HI I am nauseated and very thirsty I have been drinking a lot of water and tea History of Present Illness The patient is a 41 year old male who presents to the Emergency Room with complaints of elevated blood sugar for the past 5 hours. The patient is well- known to the department due to frequency of visits. The patient has a history of type 2 diabetes and was seen by myself last night for a left foot cellulitis where he was started on Bactrim and clindamycin. The patient is not complaining of pain in his foot at this time. He states that he was feeling very thirsty around dinnertime, and began drinking unsweetened tea. The patient states that he drank a full gallon of unsweetened tea. When he took his blood sugar after giving himself his nighttime insulin, he states that the meter read as "HIGH". The patient does not report having a fever. He is not having chest pain, chest tightness, shortness of breath, or abdominal pain. He states his primary concern is for his elevated blood sugar. He rates his discomfort a 2/10. Review of Systems More than 10 systems were reviewed and otherwise negative with the exception of history of present illness. Past Medical/Surgical History Medical Problems: (1) Depression (2) Depression (3) DM type 2 (diabetes mellitus, type 2) (4) Gastroparesis (5) HTN (hypertension) (6) IBS (irritable bowel syndrome) (7) Intellectual disability (8) Intellectual disability (9) Lumbago (10) Mental retardation (11) Nicotine abuse (12) Nicotine dependence (13) NSVT (nonsustained ventricular tachycardia) (14) Obesity (15) Obstructive sleep apnea (16) Sepsis (17) Stroke-like symptoms Surgical Problems: (1) S/P left knee arthroscopy (2) S/P tonsillectomy Social History Problems: (1) Alcohol abuse Family History Cancer Diabetes mellitus MOTHER GRANDMOTHER UNCLE AUNT Gallbladder disease Heart disease Hypertension MOTHER FATHER Lung disease Social History Smoking Status: Current Every Day Smoker Alcohol Use: heavy Drug Use: none Marital Status: Housing Status: lives with family Occupation Status: employed, other Current/Historical Medications Scheduled Aripiprazole (Aripiprazole), 10 MG PO HS Aspirin (Aspirin Ec), 81 MG PO DAILY Atorvastatin (Lipitor), 1 TAB PO DAILY Clindamycin Hcl (Cleocin), 300 MG PO QID Duloxetine Hcl (Cymbalta), 60 MG PO QAM Gabapentin (Gabapentin), 400 MG PO TID Gabapentin (Gabapentin), 600 MG PO TID Insulin Aspart (Novolog Flexpen), 1 DOSE SC PC Insulin Glargine (Lantus Solostar), 38 UNITS SC BID Lisinopril (Prinivil), 1 TAB PO DAILY Sulfa/Trimethoprim (Bactrim Ds 800MG/160MG), 1 TAB PO BID Scheduled PRN Nicotine Polacrilex (Nicorelief), 1 PIECE PO DIRECTED PRN for NICOTINE CRAVINGS Polyethylene Glycol 3350 (Miralax), 17 GM PO DAILY PRN for Constipation Tramadol HCl (Tramadol HCl), 25 MG PO Q8 PRN for Pain Physical Exam Vital Signs Date Time Temp Pulse Resp B/P (MAP) Pulse Ox O2 Delivery O2 Flow Rate FiO2 08/28/17 06:20 119 16 150/93 97 Room Air 08/28/17 04:22 36.6 125 24 147/80 97 Room Air Physical Exam VITALS: Vitals are noted on the nurse's note and reviewed by myself. Vital signs with tachycardia GENERAL: Well-developed, well-nourished, white male who appears in no distress HEART: Regular rate and rhythm without murmurs gallops or rubs. LUNGS: Clear to auscultation bilaterally without wheezes, rales or rhonchi. No retractions or accessory muscle use. ABDOMEN: Positive normal bowel sounds x 4. Soft, nontender, without masses or organomegaly. No guarding or rebound tenderness. MUSCULOSKELETAL: The left foot cellulitis is still present from yesterday. It appears to have increased in size from an initial 4 x 5 cm area to a roughly 6 x 8 cm area. Now there is proximal extension into the distal lower leg that was not previously present. There is also a bloody-like drainage coming from between the third and fourth toes of the left lower extremity. A culture of this was obtained. NEURO: Patient was alert and oriented to person place and time. CN II through XII grossly intact. Medical Decision & Procedures ER Provider Diagnostic Interpretation: CHEST ONE VIEW PORTABLE CLINICAL HISTORY: 41 years-old Male presenting with sob. TECHNIQUE: Portable upright AP view of the chest was obtained. COMPARISON: 08/13/2017. FINDINGS: Cardiomediastinal silhouette normal. Mildly low lung volumes. No focal infiltrate. No large effusion or pneumothorax. Osseous structures normal. Upper abdomen normal. IMPRESSION: 1. No acute cardiopulmonary disease Laboratory Results 08/28/17 04:50 Red Blood Count 4.62, Mean Corpuscular Volume 86.1, Mean Corpuscular Hemoglobin 29.7, Mean Corpuscular Hemoglobin Concent 34.4, Mean Platelet Volume 9.4, Neutrophils (%) (Auto) 80.3, Lymphocytes (%) (Auto) 7.4, Monocytes (%) (Auto) 10.1, Eosinophils (%) (Auto) 1.0, Basophils (%) (Auto) 0.2, Neutrophils # (Auto ) 11.48, Lymphocytes # (Auto) 1.06, Monocytes # (Auto) 1.45, Eosinophils # (Auto ) 0.15, Basophils # (Auto) 0.03 Test 08/28/17 04:50 08/28/17 04:56 08/28/17 06:20 White Blood Count 14.31 K/uL (4.8-10.8) Red Blood Count 4.62 M/uL (4.7-6.1) Hemoglobin 13.7 g/dL (14.0-18.0) Hematocrit 39.8 % (42-52) Mean Corpuscular Volume 86.1 fL (80-100) Mean Corpuscular Hemoglobin 29.7 pg (25-34) Mean Corpuscular Hemoglobin Concent 34.4 g/dl (32-36) Platelet Count 279 K/uL (130-400) Mean Platelet Volume 9.4 fL (7.4-10.4) Neutrophils (%) (Auto) 80.3 % Lymphocytes (%) (Auto) 7.4 % Monocytes (%) (Auto) 10.1 % Eosinophils (%) (Auto) 1.0 % Basophils (%) (Auto) 0.2 % Neutrophils # (Auto) 11.48 K/uL (1.4-6.5) Lymphocytes # (Auto) 1.06 K/uL (1.2-3.4) Monocytes # (Auto) 1.45 K/uL (0.11-0.59) Eosinophils # (Auto) 0.15 K/uL (0-0.5) Basophils # (Auto) 0.03 K/uL (0-0.2) RDW Standard Deviation 40.5 fL (36.4-46.3) RDW Coefficient of Variation 12.7 % (11.5-14.5) Immature Granulocyte % (Auto) 1.0 % Immature Granulocyte # (Auto) 0.14 K/uL (0.00-0.02) Total Bilirubin 0.5 mg/dl (0.2-1) Aspartate Amino Transf (AST/SGOT) 8 U/L (15-37) Alanine Aminotransferase (ALT/SGPT) 18 U/L (12-78) Alkaline Phosphatase 94 U/L (45-117) Total Protein 8.3 gm/dl (6.4-8.2) Albumin 3.1 gm/dl (3.4-5.0) Globulin 5.2 gm/dl (2.5-4.0) Albumin/Globulin Ratio 0.6 (0.9-2) Beta-Hydroxybutyric Acid 0.50 mg/dL (0.2-2.81) Bedside Lactic Acid Venous 2.60 mmol/L (0.90-1.70) Urine Color YELLOW Urine Appearance CLEAR (CLEAR) Urine pH 6.0 (4.5-7.5) Urine Specific [place] 1.038 (1.000-1.030) Urine Protein NEG (NEG) Urine Glucose (UA) 3+ (NEG) Urine Ketones NEG (NEG) Urine Occult Blood NEG (NEG) Urine Nitrite NEG (NEG) Urine Bilirubin NEG (NEG) Urine Urobilinogen POS (NEG) Urine Leukocyte Esterase NEG (NEG) Urine WBC (Auto) /hpf (0-5) Urine RBC (Auto) /hpf (0-4) Urine Hyaline Casts (Auto) /lpf (0-5) Urine Epithelial Cells (Auto) /lpf (0-5) Urine Bacteria (Auto) (NEG) Urine RBC 0-4 /hpf (0-4) Urine WBC 1-5 /hpf (0-5) Urine Epithelial Cells 0-5 /lpf (0-5) Urine Bacteria NEG (NEG) Medications Administered Medications (Trade) Dose Ordered Sig/Mario Alberto Route Start Time Stop Time Status Last Admin Dose Admin Sodium Chloride 500 ml @ 999 mls/hr Q31M STAT IV 08/28/17 04:38 08/28/17 05:08 DC 08/28/17 04:38 999 MLS/HR Imipenem/ Cilastatin Sodium 500 mg/Dextrose 110 ml @ 100 mls/hr NOW STAT IV 08/28/17 05:10 08/28/17 06:15 DC 08/28/17 06:13 100 MLS/HR Daptomycin 780 mg/ Syringe 15.6 ml @ 7.8 mls/min 0515 IV 08/28/17 05:15 08/28/17 06:00 DC 08/28/17 06:13 7.8 MLS/MIN Insulin Human Regular (novoLIN-R U-100 PER UNIT) 10 units NOW ONCE SQ 08/28/17 05:45 08/28/17 05:46 DC 08/28/17 06:04 10 UNITS ED Course Physical exam and history were performed. Nursing notes, EMR, and Medication List were personally reviewed. Patient appears to have elevated blood sugar for the past 5 hours. He is a diabetic and has been drinking sweetened tea this evening. Bedside glucose was performed and was greater than 500. Additionally, the patient appears to have a worsening left foot cellulitis despite being on antibiotics. IV access was established and labs were obtained. A wound culture was taken of the foot. Blood cultures were obtained. The patient's lactic acid was elevated, and he was started on sepsis antibiotics. The patient's blood work is as above and was reviewed. He does have an elevated white blood cell count of greater than 14,000. He is mildly anemic. He remains with hyperglycemia and was given insulin here in the department as well as more normal saline. Overall the patient does not appear stable for discharge home. I suspect that he is with hyperglycemia secondary to his sepsis. The case was discussed with the on-call [facility] hospitalist, who agreed to evaluate the patient here in the department. Please see their dictation for further patient course, plan, and disposition. The chart was completed utilizing [employer] Voice Recognition Software. Grammatical errors, random word insertions, pronoun errors, and incomplete sentences are an occasional consequence of this system due to software limitations, ambient noise, and hardware issues. Any formal questions or concerns about the content, text, or information contained within the body of this dictation should be directly addressed to the provider for clarification. . Medical Decision Differential diagnosis: Etiologies such as sepsis, UTI, pneumonia, metabolic, electrolyte abnormalities , cardiac sources, intracerebral event, toxicologic, neurologic, as well as others were entertained. Impression Primary Impression: Sepsis Additional Impressions: Hyperglycemia Cellulitis of left foot Departure Information Dispostion Still a Patient Condition FAIR Referrals Velasquez Valencia M.D. (PCP) Forms WORK / SCHOOL INSTRUCTIONS, HOME CARE DOCUMENTATION FORM, IMPORTANT VISIT INFORMATION Patient Instructions [facility] Problem Qualifiers
[2017-08-29] MEDS: PIPERACILL/TAZOBAC IV 3.375 GM in DEXTROSE 5% 100ML 100 ML IV SCH ×3 (03:59→20:27)
[2017-08-29] MEDS: INSULIN ASPART 100 UNITS/ML 3 ML PEN SC SCH ×5 (04:04→20:52)
[2017-08-29] MEDS ORDERED: VANCOMYCIN INJ 2,750 MG in SODIUM CHLORIDE 0.9% 500ML 500 ML IV SCH (06:00)
[2017-08-29] MEDS: HEPARIN SOD 5000 UNIT/0.5 ML CARP SQ SCH ×3 (06:06→20:53)
[2017-08-29 07:02] VITALS: BP 137/75; PULSE 98; TEMP 36.6; O2SAT 93
[2017-08-29 07:22] LABS: BASO % 0.3 %; BASO ABS # 0.03 K/uL (0-0.2); COMPLETE YES; EOS % 3.3 %; HEMATOCRIT 34.9 % (42-52); IG% 1.1 %; LYMPH % 18.4 %; LYMPH ABS # 1.84 K/uL (1.2-3.4); MEAN CELL VOLUME 85.3 fL (80-100); MEAN CORPUSCULAR HEMOGLOBIN 28.9 pg (25-34); MEAN CORPUSCULAR HGB CONC 33.8 g/dl (32-36); MONO % 9.7 %; NEUT % 67.2 %; PLATELET COUNT 250 K/uL (130-400); RED BLOOD COUNT 4.09 M/uL (4.7-6.1); WHITE BLOOD COUNT 9.98 K/uL (4.8-10.8)
[2017-08-29] MEDS ORDERED: INSULIN GLARGINE SOLOSTAR 100 UNITS/ML 3 ML PEN SC ONE (07:30)
[2017-08-29 07:58] LABS: BUN/CREATININE RATIO 14.8 (10-20); CALCIUM 8.5 mg/dl (8.5-10.1); CREATININE 0.71 mg/dl (0.60-1.40); MAGNESIUM 2.1 mg/dl (1.8-2.4); POTASSIUM 4.1 mmol/L (3.5-5.1)
[2017-08-29] MEDS: SODIUM CHLORIDE 0.9% 1000ML 1,000 ML IV SCH (08:34)
[2017-08-29] MEDS: ASPIRIN 81 MG ECTAB PO SCH (08:35)
[2017-08-29] MEDS: ATORVASTATIN 10 MG TAB PO SCH (08:35)
[2017-08-29] MEDS: LISINOPRIL 10 MG TAB PO SCH (08:35)
[2017-08-29] MEDS: DULOXETINE HCL 60 MG CAP PO SCH (08:35)
[2017-08-29] MEDS: GABAPENTIN 400 MG CAP PO SCH ×3 (08:36→20:27)
[2017-08-29] MEDS: GABAPENTIN 600 MG TAB PO SCH ×3 (08:36→20:27)
[2017-08-29] MEDS ORDERED: INSULIN GLARGINE SOLOSTAR 100 UNITS/ML 3 ML PEN SC SCH (09:00)
--- NOTE | 2017-08-29 09:00 | Pharmacy Progress Note ---
Glycemic: Assessment & Plan Date of Service Aug 29, 2017. Assessment & Plan ASSESSMENT: 08/28/17 * 41 y/o male, well known to the pharmacy glycemic service, admitted with cellulitis/hyperglycemia * In most recent admission, it was noted that his A1c had started to climb, suggesting noncompliance * In ED, BSGs ~500 mg/dL and 10 units of Regular insulin SC given * BSGs have responded nicely and are now ~300 mg/dL * My plan will be to continue similar SQ regimen that has stabilized his blood sugars in the past and titrate as necessary * ADA & AACE recommend a goal blood sugar range 140-180 mg/dl for the majority of critically ill & non-critically ill patients. However, more stringent targets may be selected in individual cases. Will utilize more stringent goal of 110-140mg/dl based on patient age & comorbidities. Additionally, tighter glycemic control is warranted to facilitate wound/infection healing. 08/29/17 * BSGs ranging 153-500 mg/dL over the past 24 hours * Pt has responded well to SQ regimen and Fasting BSG now 222 mg/dL * This is still far above appropriate goal range for him; however, I believe the rate he is correcting down is appropriate * Pt is still basal deficient as evidenced by fasting BSG and overnight Novolog - Replace with large dose this AM and resume Lantus scale BID based on BSG trend (this dose is calculated by estimating patient needed at least 100 units of basal yesterday and was 12 units short, so give 50 + 12 units this AM) PLAN FOR INPATIENT GLYCEMIC CONTROL: * Give Lantus 62 units X 1 this AM then continue per Lantus scale tonight * Continue correction factor of 10 mg/dl/unit * Tighten to carb ratio of 1 unit per 3.5 grams CHO consumed * Continue goal range of Low 110 mg/dL - High 140 mg/dL * Please note that the plan above was derived based on current level of insulin resistance and hospital stress. These recommendations are appropriate for inpatient admission only. Plan of care upon discharge will need to be reassessed to avoid potential outpatient hypo/hyperglycemia. Thank you.
--- NOTE | 2017-08-29 14:23 | Progress Note ---
Internal Med Progress Note Date of Service: Aug 29, 2017. Provider Documentation: SUBJECTIVE: Seen and examined at bedside LLE foot pain is better swelling and erythema improving Denies chest pain, SOB, abd pain, dizziness No other complaints OBJECTIVE: Vital Signs-as noted below Physical Exam: General Appearance:Moderately built and nourished, no apparent distress Head: normocephalic, Atraumatic Eyes: normal inspection, EOMI, PERRL Neck: supple, Trachea midline Respiratory/Chest: Normal breath sounds, CTA Cardiovascular: S1, S2, No murmur Abdomen/GI:Soft, Non tender, Bowel sounds present Extremities/Musculoskelatal:normal inspection, Left LE foot erythema, swelling, Wound, +Drainage Neurologic/Psych:AAOX3, grossly no focal neurological deficits Skin: normal color, warm Lab data as noted below. ASSESSMENT & PLAN: Sepsis L foot Cellulitis Presented with elevated WBC, Tachycardia with elevated lactic acid Received Dapto and Imipenem in ED Blood Cultures:No growth to date Wound Culture: Staph. auerus Leukocytosis, lactate normalized DC IV fluids Continue Vanco and Zosyn Day # 3 Wound care consulted Continue wound care Uncontrolled Diabetes Presented with BS above 500 Last A1c: 9.2 on 07/27/17 Continue Insulin therapy continue monitor Pharmacy consult for glycemic management Hyponatremia Secondary to hyperglycemia Continue monitor HTN stable On lisinopril 10 mg monitor HLP: Continue Lipitor Depression: continue home meds Tobacco use disorder: Nicotine patch H/O Gastroparesis/IBS stable DVT Px: heparin SQ Code Status: Full Code Disposition: Plan to discharge home when stable Vital Signs: Date Time Temp Pulse Resp B/P (MAP) Pulse Ox O2 Delivery O2 Flow Rate FiO2 08/29/17 08:00 Room Air 08/29/17 07:02 36.6 98 20 137/75 (95) 93 Room Air 08/29/17 00:00 Room Air 08/28/17 23:36 36.9 101 20 151/68 (95) 94 Room Air 08/28/17 15:30 94 Room Air 08/28/17 15:23 37.3 110 22 130/72 (91) 94 Room Air Lab Results: Results Past 24 Hours Test 08/28/17 16:24 08/28/17 20:13 08/28/17 23:50 08/29/17 04:02 Range/Units Bedside Glucose 153 203 214 266 70-99 mg/dl Test 08/29/17 07:01 08/29/17 07:12 08/29/17 11:16 Range/Units White Blood Count 9.98 4.8-10.8 K/uL Red Blood Count 4.09 4.7-6.1 M/uL Hemoglobin 11.8 14.0-18.0 g/dL Hematocrit 34.9 42-52 % Mean Corpuscular Volume 85.3 80-100 fL Mean Corpuscular Hemoglobin 28.9 25-34 pg Mean Corpuscular Hemoglobin Concent 33.8 32-36 g/dl Platelet Count 250 130-400 K/uL Mean Platelet Volume 9.0 7.4-10.4 fL Neutrophils (%) (Auto) 67.2 % Lymphocytes (%) (Auto) 18.4 % Monocytes (%) (Auto) 9.7 % Eosinophils (%) (Auto) 3.3 % Basophils (%) (Auto) 0.3 % Neutrophils # (Auto) 6.70 1.4-6.5 K/uL Lymphocytes # (Auto) 1.84 1.2-3.4 K/uL Monocytes # (Auto) 0.97 0.11-0.59 K/uL Eosinophils # (Auto) 0.33 0-0.5 K/uL Basophils # (Auto) 0.03 0-0.2 K/uL RDW Standard Deviation 39.0 36.4-46.3 fL RDW Coefficient of Variation 12.5 11.5-14.5 % Immature Granulocyte % (Auto) 1.1 % Immature Granulocyte # (Auto) 0.11 0.00-0.02 K/uL Sodium Level 134 136-145 mmol/L Potassium Level 4.1 3.5-5.1 mmol/L Chloride Level 101 98-107 mmol/L Carbon Dioxide Level 25 21-32 mmol/L Anion Gap 8.0 3-11 mmol/L Blood Urea Nitrogen 11 7-18 mg/dl Creatinine 0.71 0.60-1.40 mg/dl Est Creatinine Clear Calc Drug Dose 194.9 ml/min Estimated GFR () 133.2 Estimated GFR (Non- 114.9 BUN/Creatinine Ratio 14.8 10-20 Random Glucose 224 70-99 mg/dl Calcium Level 8.5 8.5-10.1 mg/dl Magnesium Level 2.1 1.8-2.4 mg/dl Bedside Glucose 222 244 70-99 mg/dl
[2017-08-29] MEDS: VANCOMYCIN INJ 1,750 MG in SODIUM CHLORIDE 0.9% 500ML 500 ML IV SCH ×2 (14:29→20:37)
[2017-08-29] MEDS: TRAMADOL HCL 50 MG TAB PO PRN (20:26)
[2017-08-29] MEDS: ARIPIprazole TAB 10 MG TAB PO SCH (20:30)
[2017-08-29] MEDS: INSULIN GLARGINE SOLOSTAR 100 UNITS/ML 3 ML PEN SC SCH (20:52)
[2017-08-29 22:55] VITALS: BP 147/78; PULSE 97; TEMP 36.8; O2SAT 95
[2017-08-30] MEDS: INSULIN ASPART 100 UNITS/ML 3 ML PEN SC SCH ×6 (00:42→21:15)
[2017-08-30] MEDS: PIPERACILL/TAZOBAC IV 3.375 GM in DEXTROSE 5% 100ML 100 ML IV SCH ×3 (04:14→21:04)
[2017-08-30] MEDS ORDERED: VANCOMYCIN TROUGH ONE ×2 (05:30→13:30)
[2017-08-30] MEDS: VANCOMYCIN INJ 1,750 MG in SODIUM CHLORIDE 0.9% 500ML 500 ML IV SCH ×3 (05:59→22:06)
[2017-08-30] MEDS: HEPARIN SOD 5000 UNIT/0.5 ML CARP SQ SCH ×3 (06:01→21:15)
[2017-08-30 06:37] LABS: BASO % 0.8 %; BASO ABS # 0.07 K/uL (0-0.2); COMPLETE YES; EOS % 4.3 %; HEMATOCRIT 32.7 % (42-52); IG% 1.6 %; LYMPH ABS # 1.77 K/uL (1.2-3.4); MEAN CELL VOLUME 84.5 fL (80-100); MEAN CORPUSCULAR HEMOGLOBIN 28.7 pg (25-34); MEAN CORPUSCULAR HGB CONC 33.9 g/dl (32-36); MEAN PLATELET VOLUME 8.7 fL (7.4-10.4); MONO % 8.5 %; NEUT % 64.8 %; PLATELET COUNT 283 K/uL (130-400); RED BLOOD COUNT 3.87 M/uL (4.7-6.1); WHITE BLOOD COUNT 8.86 K/uL (4.8-10.8)
[2017-08-30 06:59] VITALS: BP 143/81; PULSE 91; TEMP 36.7; O2SAT 92
[2017-08-30 07:07] LABS: BUN/CREATININE RATIO 13.8 (10-20); CALCIUM 8.7 mg/dl (8.5-10.1); CREATININE 0.64 mg/dl (0.60-1.40); MAGNESIUM 2.2 mg/dl (1.8-2.4); POTASSIUM 4.1 mmol/L (3.5-5.1)
[2017-08-30] MEDS: ASPIRIN 81 MG ECTAB PO SCH (08:30)
[2017-08-30] MEDS: GABAPENTIN 600 MG TAB PO SCH ×3 (08:30→21:05)
[2017-08-30] MEDS: GABAPENTIN 400 MG CAP PO SCH ×3 (08:30→21:06)
[2017-08-30] MEDS: DULOXETINE HCL 60 MG CAP PO SCH (08:30)
[2017-08-30] MEDS: LISINOPRIL 10 MG TAB PO SCH (08:30)
[2017-08-30] MEDS: ATORVASTATIN 10 MG TAB PO SCH (08:30)
[2017-08-30] MEDS: INSULIN GLARGINE SOLOSTAR 100 UNITS/ML 3 ML PEN SC SCH (08:34)
[2017-08-30] MEDS ORDERED: MoRPHine SULFATE 2 MG/ML CARP ONE (09:30)
[2017-08-30] MEDS ORDERED: MoRPHine SULFATE 2 MG/ML CARP IV PRN (09:30)
[2017-08-30 11:01] VITALS: Ht 190.5 cm; Wt 130.0 kg
--- NOTE | 2017-08-30 11:18 | Pharmacy Progress Note ---
Glycemic: Assessment & Plan Date of Service Aug 30, 2017. Assessment & Plan ASSESSMENT: 08/28/17 * 41 y/o male, well known to the pharmacy glycemic service, admitted with cellulitis/hyperglycemia * In most recent admission, it was noted that his A1c had started to climb, suggesting noncompliance * In ED on admission BSGs ~500 mg/dL, but over the past 48 hours, BSGs have trended down nicely with SQ regimen * Over the past 24 hours BSGs between 163 -266 mg/dL - much improved from the previous day * A total of 209 units given: 112 units basal and 97 units bolus * Fasting BSG today = 152 mg/dL * Pt is currently needing much more basal than previous admissions - but I still think he will settle in over the next 24 hours to his original dosing * I will give one more large dose this AM due to his ongoing basal deficiency but switch to home dosing tonight * Continue tightened Novolog and loosen when BSGs stabilize (if necessary) PLAN FOR INPATIENT GLYCEMIC CONTROL: * Give Lantus 50 units X 1 this AM then continue per Lantus 38 units BID tonight * Continue correction factor of 10 mg/dl/unit * Continue carb ratio of 1 unit per 3.5 grams CHO consumed * Continue goal range of Low 110 mg/dL - High 140 mg/dL Looking ahead to discharge: * CDE met with pt today and he states he takes his basal insulin but has issues with taking Novolog per scale because he does not check his BSGs frequently * Based on prior admission data and what patient current is using now, I believe it would be safe to schedule Novolog in addition to a scale * I recommend Novolog 12 units with meals - final plan TBD when ready for discharge * Continue Lantus 38 units BID * Please note that the plan above was derived based on current level of insulin resistance and hospital stress. These recommendations are appropriate for inpatient admission only. Plan of care upon discharge will need to be reassessed to avoid potential outpatient hypo/hyperglycemia. Thank you.
--- NOTE | 2017-08-30 12:40 | Wound Consultation: Inpatient ---
Wound Consultation Date of Consultation: Aug 30, 2017. Attending Physician: Diogenes Richard MD Reason for Consultation: Diabetic foot ulcer left foot History of Present Illness Mr Akhtar is a 41-year-old man admitted to [facility] on 08/28 for cellulitis to the left foot. Patient was initially evaluated [facility] an 08/26/2017 in the emergency department for cellulitis and started on antibiotics. Patient states erythema and pain progressed and he re-presented to the emergency department on 08/28/2017 and was subsequently admitted for sepsis and cellulitis. Patient was started on IV daptomycin and Zosyn which he is currently continuing. Patient did have initial wound culture positive for staph aureus. Patient does report uncontrolled blood sugars with last hemoglobin A1c 9.4 in July 2017. Patient denies any trauma or precipitating event to the cellulitis. Patient at time of exam is denying fever or chills does complain of pain to the foot and feels the erythema is extending on the dorsum of his foot Past Medical/Surgical History Please refer to admission history of present illness. Family History Cancer Diabetes mellitus MOTHER GRANDMOTHER UNCLE AUNT Gallbladder disease Heart disease Hypertension MOTHER FATHER Lung disease Social History Smoking Status: Current Every Day Smoker Drug Use: none Marital Status: Housing Status: lives with family Occupation Status: employed, other Allergies Coded Allergies: Cephalosporins (Verified Allergy, Unknown, CECLOR, 08/13/17) NSAIDs (Verified Adverse Reaction, Unknown, gastroparesis, kidney problems , 08/13/17) Home Medications Scheduled Aripiprazole (Aripiprazole), 10 MG PO HS Aspirin (Aspirin Ec), 81 MG PO DAILY Atorvastatin (Lipitor), 1 TAB PO DAILY Clindamycin Hcl (Cleocin), 300 MG PO QID Duloxetine Hcl (Cymbalta), 60 MG PO QAM Gabapentin (Gabapentin), 400 MG PO TID Gabapentin (Gabapentin), 600 MG PO TID Insulin Aspart (Novolog Flexpen), 1 DOSE SC PC Insulin Glargine (Lantus Solostar), 38 UNITS SC BID Lisinopril (Prinivil), 1 TAB PO DAILY Sulfa/Trimethoprim (Bactrim Ds 800MG/160MG), 1 TAB PO BID Scheduled PRN Nicotine Polacrilex (Nicorelief), 1 PIECE PO DIRECTED PRN for NICOTINE CRAVINGS Polyethylene Glycol 3350 (Miralax), 17 GM PO DAILY PRN for Constipation Tramadol HCl (Tramadol HCl), 25 MG PO Q8 PRN for Pain Inpatient Medications Current Inpatient Medications Medications (Trade) Dose Ordered Sig/Mario Alberto Route Start Time Stop Time Status Last Admin Dose Admin Aripiprazole (Abilify Tab) 10 mg HS PO 08/28/17 21:00 09/27/17 20:59 08/29/17 20:30 10 MG Aspirin (Ecotrin Tab) 81 mg DAILY PO 08/28/17 08:00 09/27/17 08:59 08/30/17 08:30 81 MG Atorvastatin Calcium (Lipitor Tab) 10 mg DAILY PO 08/28/17 08:00 09/27/17 08:59 08/30/17 08:30 10 MG Duloxetine HCl (Cymbalta Cap) 60 mg QAM PO 08/28/17 08:00 09/27/17 08:59 08/30/17 08:30 60 MG Gabapentin (Neurontin Cap) 400 mg TID PO 08/28/17 08:00 09/27/17 08:59 08/30/17 08:30 400 MG Gabapentin (Neurontin Tab) 600 mg TID PO 08/28/17 08:00 09/27/17 08:59 08/30/17 08:30 600 MG Lisinopril (Zestril Tab) 10 mg DAILY PO 08/28/17 08:00 09/27/17 08:59 08/30/17 08:30 10 MG Miscellaneous Information (Consult Glycemic Management Pharmacy) 1 ea UD PRN N/A 08/28/17 07:42 09/27/17 07:41 Glucose (Glucose 40% Gel) 15-30 GRAMS 15 GRAMS... UD PRN PO 08/28/17 07:45 09/27/17 07:44 Glucose (Glucose Chew Tab) 4-8 Tablets 4 Tabl... UD PRN PO 08/28/17 07:45 09/27/17 07:44 Dextrose (Dextrose 50% 50ML Syringe) 25-50ML OF 50% DW IV FOR... UD PRN IV 08/28/17 07:45 09/27/17 07:44 Glucagon (Glucagon Inj) 1 mg UD PRN SQ 08/28/17 07:45 09/27/17 07:44 Heparin Sodium (Porcine) (Heparin Sq 5000 Unit/0.5ml) 5,000 unit Q8 SQ 08/28/17 14:00 09/27/17 13:59 08/30/17 06:01 5,000 UNIT Vancomycin HCl 1750 mg/Sodium Chloride 535 ml @ 200 mls/hr Q8H IV 08/29/17 14:00 09/08/17 13:59 08/30/17 05:59 200 MLS/HR Piperacillin Sod/ Tazobactam Sod 3.375 gm/Dextrose 115 ml @ 28.75 mls/ hr Q8H IV 08/28/17 20:00 09/07/17 11:59 08/30/17 04:14 28.75 MLS/HR Vancomycin HCl (Consult) 1 ea UD PRN N/A 08/28/17 08:45 09/27/17 08:44 Piperacillin Sod/ Tazobactam Sod (Consult) 1 ea UD PRN N/A 08/28/17 08:45 09/27/17 08:44 Insulin Aspart (novoLOG ASPART) SLIDING SCALE ACHS SC 08/28/17 09:00 09/27/17 08:59 08/30/17 08:34 15 UNITS Tramadol HCl (Ultram Tab) 25 mg Q8 PRN PO 08/29/17 20:00 09/28/17 19:59 08/29/17 20:26 25 MG Morphine Sulfate (MoRPHine SULFATE INJ) 2 mg Q6H PRN IV 08/30/17 09:30 09/01/17 09:29 Insulin Glargine (Lantus Solostar Pen) 38 units Q12 SC 08/30/17 21:00 09/29/17 20:59 Review of Systems Constitutional: No fever Eyes: No worsening of vision, No eye pain, No redness, No discharge, No diplopia, No problem reported Respiratory: No cough, No sputum, No wheezing, No shortness of breath, No dyspnea on exertion, No dyspnea at rest, No hemoptysis, No problem reported Cardiovascular: + chest pain, + orthopnea, + PND, + edema, + claudication, + palpitations, + problem reported Hematologic / Lymphatic: No abnormal bleeding/bruising, No clotting problems, No swollen lymph nodes, No night sweats, No problem reported Physical Exam Date Time Temp Pulse Resp B/P (MAP) Pulse Ox O2 Delivery O2 Flow Rate FiO2 08/30/17 08:00 Room Air 08/30/17 06:59 36.7 91 16 143/81 (101) 92 Room Air 08/30/17 00:00 Room Air 08/29/17 22:55 36.8 97 20 147/78 (101) 95 Room Air 08/29/17 20:00 Room Air 08/29/17 16:00 Room Air General Appearance: + mild distress (secondary to pain of left foot) Head: normocephalic, atraumatic Eyes: normal inspection ENT: normal ENT inspection Neck: supple Extremities/Musculoskelatal: normal inspection, no calf tenderness, normal capillary refill, + pedal edema (2+ to the left foot) Skin: + pertinent finding (cellulitic changes noted to the dorsum of the left foot plantar surface of the foot and the toes. There is desquamation of macerated tissue present. Patient also has 2 abscesses 1 between third and fourth toe measuring 0.2 x 0.2 x 1.7 cm the second abscess is on the plantar surface of the toe between the fourth and fifth digit measuring 0.3 x 0.2 x 1.2 cm deep. Wound #3 plantar surface of the foot measures 8 x 4 x 0.1) Laboratory Results Last 24 Hours Test 08/29/17 16:05 08/29/17 20:01 08/30/17 00:14 08/30/17 04:06 Bedside Glucose 163 mg/dl 211 mg/dl 259 mg/dl 180 mg/dl Test 08/30/17 06:08 White Blood Count 8.86 K/uL Red Blood Count 3.87 M/uL Hemoglobin 11.1 g/dL Hematocrit 32.7 % Mean Corpuscular Volume 84.5 fL Mean Corpuscular Hemoglobin 28.7 pg Mean Corpuscular Hemoglobin Concent 33.9 g/dl Platelet Count 283 K/uL Mean Platelet Volume 8.7 fL Neutrophils (%) (Auto) 64.8 % Lymphocytes (%) (Auto) 20.0 % Monocytes (%) (Auto) 8.5 % Eosinophils (%) (Auto) 4.3 % Basophils (%) (Auto) 0.8 % Neutrophils # (Auto) 5.75 K/uL Lymphocytes # (Auto) 1.77 K/uL Monocytes # (Auto) 0.75 K/uL Eosinophils # (Auto) 0.38 K/uL Basophils # (Auto) 0.07 K/uL RDW Standard Deviation 38.8 fL RDW Coefficient of Variation 12.7 % Immature Granulocyte % (Auto) 1.6 % Immature Granulocyte # (Auto) 0.14 K/uL Sodium Level 136 mmol/L Potassium Level 4.1 mmol/L Chloride Level 102 mmol/L Carbon Dioxide Level 26 mmol/L Anion Gap 8.0 mmol/L Blood Urea Nitrogen 9 mg/dl Creatinine 0.64 mg/dl Est Creatinine Clear Calc Drug Dose 216.2 ml/min Estimated GFR () 139.0 Estimated GFR (Non- 119.9 BUN/Creatinine Ratio 13.8 Random Glucose 164 mg/dl Calcium Level 8.7 mg/dl Magnesium Level 2.2 mg/dl Vancomycin Level Trough 16.6 mcg/ml Assessment & Plan Assessment: Diabetic foot ulcer plantar surface of the left foot Tucker grade 2 with abscess Plan wounds did require debridement with the patient's permission after the application of topical Xylocaine the wound was debrided with scissors and forceps a curette of slough subcutaneous tissue and necrotic tissue. Purulent drainage was expressed from ulcer sites approximately 5 mL. Wound culture was obtained. Wounds will be dressed with Aquasol AG change in a daily when necessary basis. Patient was advised to use offloading device at all times. Patient will be scheduled for MRI with contrast to the left foot. Patient can be followed up in the wound care center on an outpatient basis will see sooner pending MRI results.
[2017-08-30] MEDS ORDERED: GADAVIST IV PRN (13:15)
[2017-08-30] MEDS: TRAMADOL HCL 50 MG TAB PO PRN ×2 (13:26→21:26)
--- NOTE | 2017-08-30 14:53 | Progress Note ---
Internal Med Progress Note Date of Service: Aug 30, 2017. Provider Documentation: SUBJECTIVE: Seen and examined at bedside LLE foot pain is controlled Got debridement of foot ulcer today swelling and erythema improving Denies chest pain, SOB, abd pain, dizziness No other complaints OBJECTIVE: Vital Signs-as noted below Physical Exam: General Appearance:Moderately built and nourished, no apparent distress Head: normocephalic, Atraumatic Eyes: normal inspection, EOMI, PERRL Neck: supple, Trachea midline Respiratory/Chest: Normal breath sounds, CTA Cardiovascular: S1, S2, No murmur Abdomen/GI:Soft, Non tender, Bowel sounds present Extremities/Musculoskelatal:normal inspection, Left LE foot in bandage Neurologic/Psych:AAOX3, grossly no focal neurological deficits Skin: normal color, warm Lab data as noted below. ASSESSMENT & PLAN: Sepsis L foot Cellulitis/Foot Ulcer with abscess S/P debridement Day #0 Presented with elevated WBC, Tachycardia with elevated lactic acid Received Dapto and Imipenem in ED Blood Cultures:No growth to date Wound Culture: Staph. auerus: tejeda sensitive Leukocytosis, lactate normalized DC IV fluids Continue Vanco and Zosyn Day # 4 Appreciate Wound care Input MRI foot pending Repeat Wound cultures pending Continue wound care Pain control Uncontrolled Diabetes Presented with BS above 500 Last A1c: 9.2 on 07/27/17 Continue Insulin therapy continue monitor Pharmacy consult for glycemic management Hyponatremia Secondary to hyperglycemia Resolved Continue monitor HTN stable On lisinopril 10 mg monitor HLP: Continue Lipitor Depression: continue home meds Tobacco use disorder: Nicotine patch H/O Gastroparesis/IBS stable DVT Px: heparin SQ Code Status: Full Code Disposition: Plan to discharge home when stable Vital Signs: Date Time Temp Pulse Resp B/P (MAP) Pulse Ox O2 Delivery O2 Flow Rate FiO2 08/30/17 08:00 Room Air 08/30/17 06:59 36.7 91 16 143/81 (101) 92 Room Air 08/30/17 00:00 Room Air 08/29/17 22:55 36.8 97 20 147/78 (101) 95 Room Air 08/29/17 20:00 Room Air 08/29/17 16:00 Room Air Lab Results: Results Past 24 Hours Test 08/29/17 16:05 08/29/17 20:01 08/30/17 00:14 08/30/17 04:06 Range/Units Bedside Glucose 163 211 259 180 70-99 mg/dl Test 08/30/17 06:08 08/30/17 07:43 08/30/17 11:33 08/30/17 13:43 Range/Units White Blood Count 8.86 4.8-10.8 K/uL Red Blood Count 3.87 4.7-6.1 M/uL Hemoglobin 11.1 14.0-18.0 g/dL Hematocrit 32.7 42-52 % Mean Corpuscular Volume 84.5 80-100 fL Mean Corpuscular Hemoglobin 28.7 25-34 pg Mean Corpuscular Hemoglobin Concent 33.9 32-36 g/dl Platelet Count 283 130-400 K/uL Mean Platelet Volume 8.7 7.4-10.4 fL Neutrophils (%) (Auto) 64.8 % Lymphocytes (%) (Auto) 20.0 % Monocytes (%) (Auto) 8.5 % Eosinophils (%) (Auto) 4.3 % Basophils (%) (Auto) 0.8 % Neutrophils # (Auto) 5.75 1.4-6.5 K/uL Lymphocytes # (Auto) 1.77 1.2-3.4 K/uL Monocytes # (Auto) 0.75 0.11-0.59 K/uL Eosinophils # (Auto) 0.38 0-0.5 K/uL Basophils # (Auto) 0.07 0-0.2 K/uL RDW Standard Deviation 38.8 36.4-46.3 fL RDW Coefficient of Variation 12.7 11.5-14.5 % Immature Granulocyte % (Auto) 1.6 % Immature Granulocyte # (Auto) 0.14 0.00-0.02 K/uL Sodium Level 136 136-145 mmol/L Potassium Level 4.1 3.5-5.1 mmol/L Chloride Level 102 98-107 mmol/L Carbon Dioxide Level 26 21-32 mmol/L Anion Gap 8.0 3-11 mmol/L Blood Urea Nitrogen 9 7-18 mg/dl Creatinine 0.64 0.60-1.40 mg/dl Est Creatinine Clear Calc Drug Dose 216.2 ml/min Estimated GFR () 139.0 Estimated GFR (Non- 119.9 BUN/Creatinine Ratio 13.8 10-20 Random Glucose 164 70-99 mg/dl Calcium Level 8.7 8.5-10.1 mg/dl Magnesium Level 2.2 1.8-2.4 mg/dl Vancomycin Level Trough 16.6 12.0 SEE COMMENT mcg/ml Bedside Glucose 152 178 70-99 mg/dl Microbiology Results 08/30/17 Gram Stain - Final, Resulted 08/30/17 Wound Culture, Resulted Pending
--- NOTE | 2017-08-30 15:01 | DIAGNOSTIC IMAGING REPORT ---
LOWER EXT NONJOINT COMBO HISTORY: 41 years-old Male ABCESS abscess, cellulitis of the left foot with infection between the third and fourth digits. COMPARISON: None available TECHNIQUE: Multiplanar multi sequence MRI of the left foot was obtained both with and without the use of 13 mL Gadavist FINDINGS: There is moderate enhancing subcutaneous and deep tissue edema about the forefoot and image midfoot notably surrounding the third and fourth toes and third web space. Within the third webspace there is a peripherally enhancing irregular collection which demonstrates intermediate T1 and mildly increased T2 signal measuring 3.2 x 3.0 x 2.7 cm (for example see image 12 of series 16 image 20 of series 17) which extends both dorsally and volarly to the third proximal phalanx and extends towards the dorsal skin surface as seen on image 14 series 16. There is a subacute appearing oblique fracture involving the fourth proximal phalanx as seen on image 23 of series 6 and image 23 of series 15 with moderate bone marrow edema and surrounding periosteal reaction. There is mild to moderate bone marrow edema noted involving the third proximal phalanx with maintained signal on the T1 images suggesting reactive changes. No definite erosive changes to suggest acute osteomyelitis. There is mild diffuse intramuscular edema about the forefoot. Imaged flexor and extensor tendons appear intact. No evidence of Llamas neuroma. No significant intermetatarsal bursitis. There is a focal area of decreased T1 and T2 signal within the plantar soft tissues lateral to the fourth proximal phalanx measuring approximately 6 x 4 mm as seen on image 24 series 6, image 13 series 8 and image 18 of series 10. IMPRESSION: 1. Moderate cellulitis of the forefoot with 3.2 x 3.0 x 2.7 cm peripherally enhancing abscess surrounding the third proximal phalanx extending to the dorsal skin surface. Adjacent 6 x 4 mm focus of decreased T1 and T2 signal is suspicious for a foreign body or focus of air within the wound. Correlate with clinical exam. 2. Subacute appearing fracture of the fourth proximal phalanx with moderate associated bone marrow edema and periosteal reaction. 3. Mild bone marrow edema of the third proximal phalanx suggests reactive change without definite evidence of osteomyelitis at this time. The above report was generated using voice recognition software. It may contain grammatical, syntax or spelling errors. Electronically signed by: Tanner Hilliard M.D. 08/30/2017 2:59 PM Dictated Date/Time: 08/30/2017 1:14 PM
--- NOTE | 2017-08-30 15:27 | Pharmacy Progress Note ---
Pharmacy Abx Dose Progress Nt Date of Service Aug 30, 2017. Pharmacy Dosing Scope The patient is currently receiving the following antimicrobial agents per Pharmacy consult: Vancomycin 1750mg IV every 8 hours and extended interval Zosyn at 3.375gm IV every 8 hours Objective Height (Feet): 6 Height (Inches): 3.00 Weight (Kilograms): 130.000 Vital Signs (Past 12Hrs) Vital Signs Past 12 Hours Date Time Temp Pulse Resp B/P (MAP) Pulse Ox O2 Delivery O2 Flow Rate FiO2 08/30/17 08:00 Room Air 08/30/17 06:59 36.7 91 16 143/81 (101) 92 Room Air Lab Results (24Hrs) Item Value Date Time Vancomycin Level Trough 16.6 mcg/ml 08/30/17 0608 Vancomycin Level Trough 12.0 mcg/ml 08/30/17 1343 Laboratory Tests (24 Hours) Test 08/30/17 06:08 White Blood Count 8.86 K/uL (4.8-10.8) Red Blood Count 3.87 M/uL (4.7-6.1) L Hemoglobin 11.1 g/dL (14.0-18.0) L Hematocrit 32.7 % (42-52) L Mean Corpuscular Volume 84.5 fL (80-100) Mean Corpuscular Hemoglobin 28.7 pg (25-34) Mean Corpuscular Hemoglobin Concent 33.9 g/dl (32-36) Platelet Count 283 K/uL (130-400) Mean Platelet Volume 8.7 fL (7.4-10.4) Neutrophils (%) (Auto) 64.8 % Lymphocytes (%) (Auto) 20.0 % Monocytes (%) (Auto) 8.5 % Eosinophils (%) (Auto) 4.3 % Basophils (%) (Auto) 0.8 % Neutrophils # (Auto) 5.75 K/uL (1.4-6.5) Lymphocytes # (Auto) 1.77 K/uL (1.2-3.4) Monocytes # (Auto) 0.75 K/uL (0.11-0.59) H Eosinophils # (Auto) 0.38 K/uL (0-0.5) Basophils # (Auto) 0.07 K/uL (0-0.2) Micro Results Date/Time Source Procedure Growth Status 08/28/17 05:13 Blood Blood Culture - Preliminary NO GROWTH TO DATE. Resulted 08/28/17 04:50 Blood Blood Culture - Preliminary NO GROWTH TO DATE. Resulted 08/30/17 09:20 Abscess Toe Left 3 Gram Stain - Final Resulted 08/30/17 09:20 Abscess Toe Left 3 Wound Culture Pending Resulted 08/28/17 05:10 Skin Toe Gram Stain - Final Complete 08/28/17 05:10 Wound Culture - Final Staphylococcus Aureus Complete Risk Factors for Resistance * Antimicrobial use within the last 90 days Bactrim PO x 2 days Assessment & Plan Assessment 41 year old male receiving Vancomycin and Zosyn for treatment of lower extremity Cellulitis Day # 3 of antimicrobial therapy Plan Vancomycin IV * the last Trough level of 12 mcg/mL is subtherapeutic; morning trough level came back 16.6 mcg/ml but chart revealed nursing had hung dose prior to lab being drawn * Continue dose of 1750 mg IV every 8hours * Goal trough level: 15-20 mcg/mL * Trough level ordered prior to 1400 dose on 08/31/17 * Less than traditional dose selected due to likelihood of drug accumulation in obese patient. Piperacillin/tazobactam * Continue 3.375g IV extended infusion every 8 hours for CrCl greater than 20 mL /min Pharmacy will continue to follow and will adjust dose/frequency as necessary. Thank you.
[2017-08-30 15:49] VITALS: BP 150/85; PULSE 95; TEMP 36.9; O2SAT 95
[2017-08-30] MEDS ORDERED: INSULIN GLARGINE SOLOSTAR 100 UNITS/ML 3 ML PEN SC SCH (21:00)
[2017-08-30] MEDS: ARIPIprazole TAB 10 MG TAB PO SCH (21:05)
[2017-08-30 23:02] VITALS: BP 120/67; PULSE 93; TEMP 37; O2SAT 95
[2017-08-31] MEDS: PIPERACILL/TAZOBAC IV 3.375 GM in DEXTROSE 5% 100ML 100 ML IV SCH ×3 (04:54→20:54)
[2017-08-31] MEDS: VANCOMYCIN INJ 1,750 MG in SODIUM CHLORIDE 0.9% 500ML 500 ML IV SCH ×2 (05:44→13:48)
[2017-08-31] MEDS: HEPARIN SOD 5000 UNIT/0.5 ML CARP SQ SCH ×3 (05:48→21:02)
[2017-08-31 06:19] LABS: BASO ABS # 0.08 K/uL (0-0.2); COMPLETE YES; EOS % 4.9 %; HEMATOCRIT 35.1 % (42-52); IG% 4.1 %; LYMPH ABS # 2.01 K/uL (1.2-3.4); MEAN CELL VOLUME 84.4 fL (80-100); MEAN CORPUSCULAR HEMOGLOBIN 28.1 pg (25-34); MEAN CORPUSCULAR HGB CONC 33.3 g/dl (32-36); MEAN PLATELET VOLUME 8.7 fL (7.4-10.4); MONO % 8.6 %; NEUT % 57.4 %; PLATELET COUNT 315 K/uL (130-400); RED BLOOD COUNT 4.16 M/uL (4.7-6.1); WHITE BLOOD COUNT 8.36 K/uL (4.8-10.8)
[2017-08-31 06:59] LABS: BUN/CREATININE RATIO 17.8 (10-20); CALCIUM 8.9 mg/dl (8.5-10.1); CREATININE 0.7 mg/dl (0.60-1.40)
[2017-08-31 07:01] VITALS: BP 155/88; PULSE 86; TEMP 36.7; O2SAT 94
[2017-08-31] MEDS: ATORVASTATIN 10 MG TAB PO SCH (09:02)
[2017-08-31] MEDS: GABAPENTIN 400 MG CAP PO SCH ×3 (09:02→20:55)
[2017-08-31] MEDS: DULOXETINE HCL 60 MG CAP PO SCH (09:02)
[2017-08-31] MEDS: ASPIRIN 81 MG ECTAB PO SCH (09:02)
[2017-08-31] MEDS: LISINOPRIL 10 MG TAB PO SCH (09:03)
[2017-08-31] MEDS: GABAPENTIN 600 MG TAB PO SCH ×3 (09:03→20:55)
[2017-08-31] MEDS: INSULIN GLARGINE SOLOSTAR 100 UNITS/ML 3 ML PEN SC SCH ×2 (09:06→21:02)
[2017-08-31] MEDS: INSULIN ASPART 100 UNITS/ML 3 ML PEN SC SCH ×4 (09:06→21:01)
--- NOTE | 2017-08-31 09:35 | Pharmacy Progress Note ---
Glycemic Control Progress Note Date of Service Aug 31, 2017. Scope Glycemic Pharmacist consulted for glycemic control to write orders per [facility] inpatient glycemic control protocol. Objective Accuchecks BSG (last 24hrs): Test 08/30/17 11:33 08/30/17 15:59 08/30/17 20:27 08/31/17 06:02 Bedside Glucose 178 mg/dl (70-99) 169 mg/dl (70-99) 248 mg/dl (70-99) Random Glucose 172 mg/dl (70-99) Recent Pertinent Medications The patient is currently receiving: * Basal insulin: Lantus 38 units every 12 hours (received 50 units yesterday AM) * Correctional Insulin: Novolog Correction per scale ACHS Goal Range: Low 110 mg/dL - High 140 mg/dL Correction Factor: 10 mg/dL/unit * Prandial insulin: Per carb ratio of 1 unit per 3.5 grams CHO consumed Outpatient Anti-Diabetic Meds Lantus 38 units BID Novolog per sliding scale Assessment & Plan ASSESSMENT: * See progress note from 08/30 for more background info, in short: * Pt receiving SQ basal bolus insulin regimen for hyperglycemia secondary to baseline DM (outpatient regimen on hold),stress/infection * Patient is currently receiving an average of 170 units of insulin per day * BSGs ranging 169 - 248 mg/dl over the past 24hrs * Changes needed to insulin regimen: * AM Fasting BSG = 172 mg/dl. This is slightly above goal range for patient based on inpatient targets and co-morbidities. Therefore Basal insulin needs increased. Received 88 units of basal yesterday. * Total ESTIMATED daily dose ~ 200 units. Need to evenly re-distribute regimen 50%:50% basal:prandial to prevent hypo/hyperglycemia PLAN FOR INPATIENT GLYCEMIC CONTROL: * Increase Lantus to 50 units BID * Tighten CR to 1 unit per 3 gm CHO consumed * Continue CF of 10 RECOMMENDATIONS FOR DISCHARGE: * please refer to note on 08/30 Thank you.
--- NOTE | 2017-08-31 12:17 | Progress Note ---
Medicine Progress Note Date & Time of Visit: Aug 31, 2017 at 12:09. Subjective seen resting in bed, comfortable still has pain on the left foot, worse with ambulation denies leg pain no fever/chills no other symptoms Objective Last 8 Hrs Date Time Temp Pulse Resp B/P (MAP) Pulse Ox O2 Delivery O2 Flow Rate FiO2 08/31/17 08:00 Room Air 08/31/17 07:01 36.7 86 20 155/88 (110) 94 Room Air Physical Exam: General- oriented x 3, not in distress, speaks in sentences with no effort Head- atraumatic Eyes- PERRL, EOMI, anicteric ENT- oropharynx clear Neck- supple, no JVD, no adenopathy, no thyromegaly; carotids +2/2, no bruits appreciated Lungs- clear to auscultation bilaterally Heart- regular rhythm; no murmur, normal rate Abdomen- normal bowel sounds, soft, nontender Extremities- left foot (+) edema/erythema 3rd toe, (+) open wound with yellowish drainage, in between 3rd and 4th toe (+) erythema and tenderness on the dorsum of the foot- within demarcation no pretibial edema, no calf tenderness; peripheral pulses intact Neuro- alert, oriented x 3; no gross focal deficits Skin- warm & dry Laboratory Results: Last 24 Hours Test 08/30/17 13:43 08/30/17 15:59 08/30/17 20:27 08/31/17 06:02 Vancomycin Level Trough 12.0 mcg/ml Bedside Glucose 169 mg/dl 248 mg/dl White Blood Count 8.36 K/uL Red Blood Count 4.16 M/uL Hemoglobin 11.7 g/dL Hematocrit 35.1 % Mean Corpuscular Volume 84.4 fL Mean Corpuscular Hemoglobin 28.1 pg Mean Corpuscular Hemoglobin Concent 33.3 g/dl Platelet Count 315 K/uL Mean Platelet Volume 8.7 fL Neutrophils (%) (Auto) 57.4 % Lymphocytes (%) (Auto) 24.0 % Monocytes (%) (Auto) 8.6 % Eosinophils (%) (Auto) 4.9 % Basophils (%) (Auto) 1.0 % Neutrophils # (Auto) 4.80 K/uL Lymphocytes # (Auto) 2.01 K/uL Monocytes # (Auto) 0.72 K/uL Eosinophils # (Auto) 0.41 K/uL Basophils # (Auto) 0.08 K/uL RDW Standard Deviation 38.5 fL RDW Coefficient of Variation 12.5 % Immature Granulocyte % (Auto) 4.1 % Immature Granulocyte # (Auto) 0.34 K/uL Sodium Level 137 mmol/L Potassium Level 4.0 mmol/L Chloride Level 101 mmol/L Carbon Dioxide Level 27 mmol/L Anion Gap 9.0 mmol/L Blood Urea Nitrogen 12 mg/dl Creatinine 0.70 mg/dl Est Creatinine Clear Calc Drug Dose 197.7 ml/min Estimated GFR () 134.0 Estimated GFR (Non- 115.6 BUN/Creatinine Ratio 17.8 Random Glucose 172 mg/dl Calcium Level 8.9 mg/dl Magnesium Level 2.0 mg/dl Test 08/31/17 07:25 Bedside Glucose 164 mg/dl Assessment & Plan SEPSIS SECONDARY TO LEFT FOOT ABSCESS S/P debridement Day #0 Presented with elevated WBC, Tachycardia with elevated lactic acid Received Dapto and Imipenem in ED Blood Cultures:No growth to date Wound Culture: Staph. auerus: tejeda sensitive -- MRI Foot: IMPRESSION: 1. Moderate cellulitis of the forefoot with 3.2 x 3.0 x 2.7 cm peripherally enhancing abscess surrounding the third proximal phalanx extending to the dorsal skin surface. Adjacent 6 x 4 mm focus of decreased T1 and T2 signal is suspicious for a foreign body or focus of air within the wound. Correlate with clinical exam. 2. Subacute appearing fracture of the fourth proximal phalanx with moderate associated bone marrow edema and periosteal reaction. 3. Mild bone marrow edema of the third proximal phalanx suggests reactive change without definite evidence of osteomyelitis at this time. -- continue Day 5 Vanco + Zosyn will consult Ortho for possible I & D will also need ID consult for antibiotic selection Uncontrolled Diabetes Presented with BS above 500 Last A1c: 9.2 on 07/27/17 Continue Insulin therapy continue monitor Pharmacy consult for glycemic management Hyponatremia Secondary to hyperglycemia Resolved Continue monitor HTN stable On lisinopril 10 mg monitor HLP: Continue Lipitor Depression: continue home meds Tobacco use disorder: Nicotine patch H/O Gastroparesis/IBS stable DVT Px: heparin SQ Code Status: Full Cod Disposition: will need PT/OT may need IV antibiotics on discharge, will consult ID anticipate d/c home when cleared medically Current Inpatient Medications: Current Inpatient Medications Medications (Trade) Dose Ordered Sig/Mario Alberto Route Start Time Stop Time Status Last Admin Dose Admin Aripiprazole (Abilify Tab) 10 mg HS PO 08/28/17 21:00 09/27/17 20:59 08/30/17 21:05 10 MG Aspirin (Ecotrin Tab) 81 mg DAILY PO 08/28/17 08:00 09/27/17 08:59 08/31/17 09:02 81 MG Atorvastatin Calcium (Lipitor Tab) 10 mg DAILY PO 08/28/17 08:00 09/27/17 08:59 08/31/17 09:02 10 MG Duloxetine HCl (Cymbalta Cap) 60 mg QAM PO 08/28/17 08:00 09/27/17 08:59 08/31/17 09:02 60 MG Gabapentin (Neurontin Cap) 400 mg TID PO 08/28/17 08:00 09/27/17 08:59 08/31/17 09:02 400 MG Gabapentin (Neurontin Tab) 600 mg TID PO 08/28/17 08:00 09/27/17 08:59 08/31/17 09:03 600 MG Lisinopril (Zestril Tab) 10 mg DAILY PO 08/28/17 08:00 09/27/17 08:59 08/31/17 09:03 10 MG Miscellaneous Information (Consult Glycemic Management Pharmacy) 1 ea UD PRN N/A 08/28/17 07:42 09/27/17 07:41 Glucose (Glucose 40% Gel) 15-30 GRAMS 15 GRAMS... UD PRN PO 08/28/17 07:45 09/27/17 07:44 Glucose (Glucose Chew Tab) 4-8 Tablets 4 Tabl... UD PRN PO 08/28/17 07:45 09/27/17 07:44 Dextrose (Dextrose 50% 50ML Syringe) 25-50ML OF 50% DW IV FOR... UD PRN IV 08/28/17 07:45 09/27/17 07:44 Glucagon (Glucagon Inj) 1 mg UD PRN SQ 08/28/17 07:45 09/27/17 07:44 Heparin Sodium (Porcine) (Heparin Sq 5000 Unit/0.5ml) 5,000 unit Q8 SQ 08/28/17 14:00 09/27/17 13:59 08/31/17 05:48 5,000 UNIT Vancomycin HCl 1750 mg/Sodium Chloride 535 ml @ 200 mls/hr Q8H IV 08/29/17 14:00 09/08/17 13:59 08/31/17 05:44 200 MLS/HR Piperacillin Sod/ Tazobactam Sod 3.375 gm/Dextrose 115 ml @ 28.75 mls/ hr Q8H IV 08/28/17 20:00 09/07/17 11:59 08/31/17 04:54 28.75 MLS/HR Vancomycin HCl (Consult) 1 ea UD PRN N/A 08/28/17 08:45 09/27/17 08:44 Piperacillin Sod/ Tazobactam Sod (Consult) 1 ea UD PRN N/A 08/28/17 08:45 09/27/17 08:44 Insulin Aspart (novoLOG ASPART) SLIDING SCALE ACHS SC 08/28/17 09:00 09/27/17 08:59 08/31/17 09:06 30 UNITS Tramadol HCl (Ultram Tab) 25 mg Q8 PRN PO 08/29/17 20:00 09/28/17 19:59 08/30/17 21:26 25 MG Morphine Sulfate (MoRPHine SULFATE INJ) 2 mg Q6H PRN IV 08/30/17 09:30 09/01/17 09:29 Gadobutrol (Gadavist) 13 mmol UD PRN IV 08/30/17 13:15 09/03/17 13:14 Insulin Glargine (Lantus Solostar Pen) 50 units Q12 SC 08/31/17 09:00 09/30/17 08:59 08/31/17 09:06 50 UNITS
[2017-08-31] MEDS ORDERED: VANCOMYCIN TROUGH ONE (13:30)
--- NOTE | 2017-08-31 14:07 | ORTHOPEDIC CONSULTATION ---
DATE OF CONSULTATION: 08/31/2017 DATE OF CONSULTATION: 08/31/2017 HISTORY OF PRESENT ILLNESS: The patient is a 41-year-old white male who last day began noticing swelling, pain, redness over the plantar and dorsal aspect of his right foot which had progressed subsequently had been seen and placed on antibiotics, subsequently admitted to the hospital. He presents today after removing dressing. He has some drainage from a small area of purulent pustule over the dorsal aspect of the third toe at the third, fourth interspace. Does not appear to involve the plantar space as he is not tender to touch, although he does have diabetes with neuropathy. MRI scan reveals there to be evidence of some fluid collection in the area that is visible in the third, fourth interspace. Discussed with the patient that he will probably need to have an I&D. Will discuss this with Dr. Shafer and make arrangements for such. ASSESSMENT: Superficial abscess with drainage left 3rd, 4th interspace cellulitis. Plan for potential I&D.
[2017-08-31 15:27] VITALS: BP 144/81; PULSE 96; TEMP 36.8; O2SAT 95
--- NOTE | 2017-08-31 15:39 | Pharmacy Progress Note ---
Pharmacy Abx Dose Progress Nt Date of Service Aug 31, 2017. Pharmacy Dosing Scope The patient is currently receiving the following antimicrobial agents per Pharmacy consult: Vancomycin and Zosyn Objective Height (Feet): 6 Height (Inches): 3.00 Weight (Kilograms): 130.000 Vital Signs (Past 12Hrs) Vital Signs Past 12 Hours Date Time Temp Pulse Resp B/P (MAP) Pulse Ox O2 Delivery O2 Flow Rate FiO2 08/31/17 15:27 36.8 96 18 144/81 (102) 95 Room Air 08/31/17 08:00 Room Air 08/31/17 07:01 36.7 86 20 155/88 (110) 94 Room Air Lab Results (24Hrs) Laboratory Tests (24 Hours) Test 08/31/17 06:02 White Blood Count 8.36 K/uL (4.8-10.8) Red Blood Count 4.16 M/uL (4.7-6.1) L Hemoglobin 11.7 g/dL (14.0-18.0) L Hematocrit 35.1 % (42-52) L Mean Corpuscular Volume 84.4 fL (80-100) Mean Corpuscular Hemoglobin 28.1 pg (25-34) Mean Corpuscular Hemoglobin Concent 33.3 g/dl (32-36) Platelet Count 315 K/uL (130-400) Mean Platelet Volume 8.7 fL (7.4-10.4) Neutrophils (%) (Auto) 57.4 % Lymphocytes (%) (Auto) 24.0 % Monocytes (%) (Auto) 8.6 % Eosinophils (%) (Auto) 4.9 % Basophils (%) (Auto) 1.0 % Neutrophils # (Auto) 4.80 K/uL (1.4-6.5) Lymphocytes # (Auto) 2.01 K/uL (1.2-3.4) Monocytes # (Auto) 0.72 K/uL (0.11-0.59) H Eosinophils # (Auto) 0.41 K/uL (0-0.5) Basophils # (Auto) 0.08 K/uL (0-0.2) Micro Results Date/Time Source Procedure Growth Status 08/28/17 05:13 Blood Blood Culture - Preliminary NO GROWTH TO DATE. Resulted 08/28/17 04:50 Blood Blood Culture - Preliminary NO GROWTH TO DATE. Resulted 08/30/17 09:20 Abscess Toe Left 3 Gram Stain - Final Resulted 08/30/17 09:20 Wound Culture - Preliminary Staphylococcus Aureus Resulted 08/28/17 05:10 Skin Toe Gram Stain - Final Complete 08/28/17 05:10 Wound Culture - Final Staphylococcus Aureus Complete Risk Factors for Resistance * Antimicrobial use within the last 90 days: Bactrim Assessment & Plan Assessment 41 year old male receiving Vancomycin and Zosyn for treatment of lower extremity cellulitis Day # [address] Kendall consulted both Ortho and ID for possible Osteomyelitis today. Plan Vancomycin IV * Trough level of 12.3 mcg/mL is subtherapeutic * Change to Vancomycin 2000 mg IV every 8 hours * Goal trough level: 15 to 20 mcg/mL * Trough level prior to 1400 dose on 09/01/17 * I felt given patients obese nature he would start to accumulate Vancomycin and achieve desired trough level. At this point he has not, so I increased dosing concentration. Piperacillin/tazobactam * Continue 4.5g IV extended infusion every 8 hours for CrCl greater than 20 mL/ min Pharmacy will continue to follow and will adjust dose/frequency as necessary. Thank you.
[2017-08-31] MEDS: TRAMADOL HCL 50 MG TAB PO PRN (16:04)
[2017-08-31] MEDS: ARIPIprazole TAB 10 MG TAB PO SCH (20:54)
[2017-08-31] MEDS: VANCOMYCIN INJ 2,000 MG in SODIUM CHLORIDE 0.9% 500ML 500 ML IV SCH (20:54)
[2017-08-31 23:59] VITALS: BP 145/76; PULSE 95; TEMP 36.6; O2SAT 92
[2017-09-01] VITALS (7 sets, daily range): BP systolic 113–156; BP diastolic 56–81; PULSE 84–111; TEMP 36.4–37; O2SAT 90–94
[2017-09-01] MEDS: PIPERACILL/TAZOBAC IV 3.375 GM in DEXTROSE 5% 100ML 100 ML IV SCH ×2 (04:00→12:43)
[2017-09-01] MEDS: VANCOMYCIN INJ 2,000 MG in SODIUM CHLORIDE 0.9% 500ML 500 ML IV SCH (05:42)
[2017-09-01] MEDS: HEPARIN SOD 5000 UNIT/0.5 ML CARP SQ SCH ×2 (05:45→13:36)
[2017-09-01] MEDS: GABAPENTIN 400 MG CAP PO SCH ×3 (08:29→20:46)
[2017-09-01] MEDS: LISINOPRIL 10 MG TAB PO SCH (08:29)
[2017-09-01] MEDS: ATORVASTATIN 10 MG TAB PO SCH (08:29)
[2017-09-01] MEDS: ASPIRIN 81 MG ECTAB PO SCH (08:29)
[2017-09-01] MEDS: GABAPENTIN 600 MG TAB PO SCH ×3 (08:29→20:46)
[2017-09-01] MEDS: DULOXETINE HCL 60 MG CAP PO SCH (08:29)
[2017-09-01] MEDS: INSULIN ASPART 100 UNITS/ML 3 ML PEN SC SCH ×4 (08:32→20:56)
[2017-09-01] MEDS: INSULIN GLARGINE SOLOSTAR 100 UNITS/ML 3 ML PEN SC SCH ×2 (08:32→20:57)
--- NOTE | 2017-09-01 10:40 | Pharmacy Progress Note ---
Pharmacy Glycemic Short Note 2 Date of Service Sep 01, 2017. OUTPATIENT ANTIDIABETIC REGIMEN: * Lantus 38 units BID * Novolog per sliding scale ASSESSMENT: * Mr. Akhtar received 178 units of insulin yesterday with BSGs ranging from 109- 186 mg/dL in the past 24 hours * He is currently NPO for a possible I&D later today but I told the nurse to continue with the ordered dose of Lantus since his fasting is elevated this AM and it is currently 50% of his total daily dose * Based upon what BSGs look like the rest of the day, I may decide to increase the basal dose tonight or just wait until tomorrow AM. Depending on the OR schedule, he may be NPO for awhile today. PLAN FOR INPATIENT GLYCEMIC CONTROL: * Continue Basal insulin * Lantus 50 units SQ BID * Bolus insulin * NovoLog per scale ACHS or Q6hrs while NPO * Goal Range: Low 110 mg/dL - High 140 mg/dL * Correction Factor: 10 mg/dL/unit * Nutritional / Prandial insulin per carb ratio of 1 unit per 3 grams CHO consumed PLAN FOR DISCHARGE: Per CDE note, patient has noncompliance with Novolog doses and fixed dosing would be preferred. See below. * Lantus 38 units BID * Novolog 15 units with meals + sliding scale
[2017-09-01] MEDS ORDERED: VANCOMYCIN TROUGH ONE (13:30)
[2017-09-01] MEDS ORDERED: ATROPINE SULFATE 0.1 MG/ML 5ML SYR IV PRN (16:45)
[2017-09-01] MEDS ORDERED: FENTANYL CITRATE INJ 50 MCG/1 ML 2 ML VIAL IV PRN (16:45)
[2017-09-01] MEDS ORDERED: EpHEDrine SULFATE INJ 50 MG/ML AMP IV PRN (16:45)
[2017-09-01] MEDS ORDERED: ONDANSETRON INJ 2 MG/ML 2 ML VIAL IV PRN (16:45)
[2017-09-01] MEDS ORDERED: LIDOCAINE HCL 2% 2 ML VIAL (20MG/ML) ONE (17:35)
[2017-09-01] MEDS ORDERED: PROPOFOL IV EMULSION 10 MG/ML 20 ML VIAL IV ONE (17:35)
[2017-09-01] MEDS ORDERED: FENTANYL CITRATE INJ 50 MCG/1 ML 2 ML VIAL ONE (17:36)
[2017-09-01] MEDS ORDERED: MIDAZOLAM HCL 1 MG/ML 2ML VIAL ONE (17:36)
[2017-09-01] MEDS: CEFTRIAXONE SOD INJ 2000 MG in DEXTROSE 5% 50ML IV SCH ×2 (18:00→18:09)
[2017-09-01] MEDS: BACITRACIN 50000 UNIT VIAL ONE ×4 (18:03→18:58)
[2017-09-01] MEDS: BUPIVACAINE 0.5 % 5 MG/1 ML MPF 30ML VIAL ONE ×2 (18:03→18:59)
--- NOTE | 2017-09-01 18:05 | History & Physical Bridge Note ---
H&P Re-Evaluation Bridge Note: I have examined the patient, reviewed the History & Physical and in the interval since the performance of the History & Physical I have noted the following changes of clinical significance: No changes noted
--- NOTE | 2017-09-01 18:14 | Progress Note ---
Medicine Progress Note Date & Time of Visit: Sep 01, 2017 at 18:10. Subjective seen resting in bed, appears comfortable frustrated to be still waiting to be taken to the OR states he still has pain on his left foot no fever/chills, nausea no other symptoms Objective Last 8 Hrs Date Time Temp Pulse Resp B/P (MAP) Pulse Ox O2 Delivery O2 Flow Rate FiO2 09/01/17 16:30 Room Air 09/01/17 15:00 36.6 97 20 156/81 (106) 94 Room Air Physical Exam: General- oriented x 3, not in distress, speaks in sentences with no effort Eyes- PERRL, EOMI ENT- oropharynx clear Neck- supple, no JVD Lungs- clear breath sounds bilaterally Heart- regular rhythm; no murmur, normal rate Abdomen- normal bowel sounds, soft, nontender Extremities- left foot (+) dressing in place no pretibial edema, no calf tenderness; peripheral pulses intact Neuro- alert, oriented x 3; no gross focal deficits Skin- warm & dry Laboratory Results: Last 24 Hours Test 08/31/17 19:59 09/01/17 08:10 09/01/17 11:47 09/01/17 16:46 Bedside Glucose 186 mg/dl 181 mg/dl 119 mg/dl 99 mg/dl Assessment & Plan SEPSIS SECONDARY TO LEFT FOOT ABSCESS Presented with elevated WBC, Tachycardia with elevated lactic acid Blood Cultures:No growth to date Wound Culture: Staph. auerus: tejeda sensitive -- MRI Foot: IMPRESSION: 1. Moderate cellulitis of the forefoot with 3.2 x 3.0 x 2.7 cm peripherally enhancing abscess surrounding the third proximal phalanx extending to the dorsal skin surface. Adjacent 6 x 4 mm focus of decreased T1 and T2 signal is suspicious for a foreign body or focus of air within the wound. Correlate with clinical exam. 2. Subacute appearing fracture of the fourth proximal phalanx with moderate associated bone marrow edema and periosteal reaction. 3. Mild bone marrow edema of the third proximal phalanx suggests reactive change without definite evidence of osteomyelitis at this time. -- given Vanco + Zosyn x 4 days, transitioned to Ceftr 2g IV daily consulted Ortho, for I&D today, appreciate the recommendations will also need ID consult for antibiotic selection Uncontrolled Diabetes Mellitus Type 2 Presented with BS above 500 Last A1c: 9.2 on 07/27/17 Continue Insulin therapy continue monitor Pharmacy consult for glycemic management Hyponatremia Secondary to hyperglycemia Resolved Continue monitor HTN On lisinopril 10 mg monitor trend HLP: Continue Lipitor Depression: continue home meds Tobacco use disorder: Nicotine patch H/O Gastroparesis/IBS stable DVT Px: heparin SQ Code Status: Full Code Disposition: will need PT/OT may need IV antibiotics on discharge, will consult ID anticipate d/c home when cleared medically Current Inpatient Medications: Current Inpatient Medications Medications (Trade) Dose Ordered Sig/Mario Alberto Route Start Time Stop Time Status Last Admin Dose Admin Aripiprazole (Abilify Tab) 10 mg HS PO 08/28/17 21:00 09/27/17 20:59 08/31/17 20:54 10 MG Aspirin (Ecotrin Tab) 81 mg DAILY PO 08/28/17 08:00 09/27/17 08:59 09/01/17 08:29 81 MG Atorvastatin Calcium (Lipitor Tab) 10 mg DAILY PO 08/28/17 08:00 09/27/17 08:59 09/01/17 08:29 10 MG Duloxetine HCl (Cymbalta Cap) 60 mg QAM PO 08/28/17 08:00 09/27/17 08:59 09/01/17 08:29 60 MG Gabapentin (Neurontin Cap) 400 mg TID PO 08/28/17 08:00 09/27/17 08:59 09/01/17 13:43 400 MG Gabapentin (Neurontin Tab) 600 mg TID PO 08/28/17 08:00 09/27/17 08:59 09/01/17 13:43 600 MG Lisinopril (Zestril Tab) 10 mg DAILY PO 08/28/17 08:00 09/27/17 08:59 09/01/17 08:29 10 MG Miscellaneous Information (Consult Glycemic Management Pharmacy) 1 ea UD PRN N/A 08/28/17 07:42 09/27/17 07:41 Glucose (Glucose 40% Gel) 15-30 GRAMS 15 GRAMS... UD PRN PO 08/28/17 07:45 09/27/17 07:44 Glucose (Glucose Chew Tab) 4-8 Tablets 4 Tabl... UD PRN PO 08/28/17 07:45 09/27/17 07:44 Dextrose (Dextrose 50% 50ML Syringe) 25-50ML OF 50% DW IV FOR... UD PRN IV 08/28/17 07:45 09/27/17 07:44 Glucagon (Glucagon Inj) 1 mg UD PRN SQ 08/28/17 07:45 09/27/17 07:44 Heparin Sodium (Porcine) (Heparin Sq 5000 Unit/0.5ml) 5,000 unit Q8 SQ 08/28/17 14:00 09/27/17 13:59 08/31/17 21:02 5,000 UNIT Insulin Aspart (novoLOG ASPART) SLIDING SCALE ACHS SC 08/28/17 09:00 09/27/17 08:59 09/01/17 08:32 5 UNITS Tramadol HCl (Ultram Tab) 25 mg Q8 PRN PO 08/29/17 20:00 09/28/17 19:59 08/31/17 16:04 25 MG Gadobutrol (Gadavist) 13 mmol UD PRN IV 08/30/17 13:15 09/03/17 13:14 Insulin Glargine (Lantus Solostar Pen) SEE PROTOCOL TEXT Q12 SC 09/01/17 21:00 10/01/17 20:59 Ceftriaxone Sodium 2000 mg/ Dextrose 70 ml @ 140 mls/hr DAILY@1800 IV 09/01/17 18:00 09/11/17 17:59 Fentanyl Citrate (Fentanyl Inj) 50 mcg Q5M PRN IV 09/01/17 16:45 09/01/17 21:45 Ondansetron HCl (Zofran Inj) 4 mg ONE PRN IV 09/01/17 16:45 09/01/17 21:45 Ephedrine Sulfate (EpHEDrine SULFATE INJ) 5 mg Q5M PRN IV 09/01/17 16:45 09/01/17 21:45 Atropine Sulfate (Atropine Sulfate 0.1MG/Ml Inj) 0.5 mg Q1M PRN IV 09/01/17 16:45 09/01/17 21:45
[2017-09-01] MEDS ORDERED: ONDANSETRON INJ 2 MG/ML 2 ML VIAL ONE (18:36)
--- NOTE | 2017-09-01 19:19 | [facility] Post Operative Brief Note ---
Immediate Operative Summary Operative Date Sep 01, 2017. Pre-Operative Diagnosis Deep abscess left foot 3rd and 4th intermetatarsal space; Ulcer left 3rd toe; Cellulitis left foot. Post-Operative Diagnosis Deep abscess left foot 3rd and 4th intermetatarsal space; Ulcer left 3rd toe; Cellulitis left foot. Procedure(s) Performed 1. Left foot Incision and Drainage Abscess Third Intermetatarsal Space 2. Left foot Incision and Drainage Abscess Fourth Intermetatarsal Space 3. Debridement Third Toe Ulcer Surgeon Dr. Jayy Shafer Junior Electrical Engineer Surgeon(s) none Estimated Blood Loss 5cc Findings See dict Specimens Micro #1 for aerobic, anaerobic and gram stain: Left Foot Third Intermetatarsal Space Abscess Drains 1/4" iodoform gauze x 5 Anesthesia GLMA w/ local Complication(s) None Disposition Recovery Room / PACU
--- NOTE | 2017-09-01 19:31 | Anesthesiology Progress Note ---
Anesthesia Post Op Note Date & Time Sep 01, 2017 at 19:30 Vital Signs Pain Intensity: 0 Vital Signs Past 12 Hours Date Time Temp Pulse Resp B/P (MAP) Pulse Ox O2 Delivery O2 Flow Rate FiO2 09/01/17 19:20 108 12 09/01/17 19:20 108 12 100/81 96 09/01/17 19:15 104 15 09/01/17 19:15 104 15 141/80 97 09/01/17 19:12 114/87 09/01/17 19:10 100 131/80 99 09/01/17 19:10 36.5 98 16 131/80 98 Oxymask 10 09/01/17 19:10 100 09/01/17 16:30 Room Air 09/01/17 15:00 36.6 97 20 156/81 (106) 94 Room Air 09/01/17 07:45 Room Air Notes Mental Status: alert / awake / arousable, participated in evaluation Pt Amnestic to Procedure: Yes Nausea / Vomiting: adequately controlled Pain: adequately controlled Airway Patency, RR, SpO2: stable & adequate BP & HR: stable & adequate Hydration State: stable & adequate Anesthetic Complications: no major complications apparent
[2017-09-01] MEDS: ARIPIprazole TAB 10 MG TAB PO SCH (20:46)
--- NOTE | 2017-09-01 22:20 | OPERATIVE REPORT ---
DATE OF OPERATION: 09/01/2017 PREOPERATIVE DIAGNOSES: 1. Left foot abscess in the third intermetatarsal space. 2. Abscess in the fourth intermetatarsal space. 3. Ulcer of the dorsum of the third toe proximal interphalangeal joint. 4. Cellulitis of the left foot. POSTOPERATIVE DIAGNOSES: Same. PROCEDURE: 1. Left foot incision and drainage third intermetatarsal space abscess. 2. Incision and drainage fourth intermetatarsal space abscess. 3. Debridement of third toe proximal interphalangeal joint ulcer including skin, subcutaneous tissue, fascia and subcutaneous fat. SURGEON: Dr. Shafer. CHEMICAL ENGINEERING INTERN: None. ANESTHESIA: General LMA with local. SPECIMENS: Aerobic, anaerobic, Gram stain. DRAINS: One-quarter inch iodoform gauze x5. COMPLICATIONS: None. BLOOD LOSS: 5 mL PERTINENT HISTORY: This is a 41-year-old gentleman who has been ongoing diabetic, who has had recent history of worsening left foot pain, redness, swelling and tenderness. He was seen in the Emergency Department approximately 08/26/2017 with left foot pain. He was given a script for antibiotics. He took antibiotics orally and had worsening symptoms. He was then seen in the Emergency Department on 08/28/2017, had significant worsened symptoms with increased pain, swelling and elevated white count at 14.31, and he was then admitted to the hospital for further care and management. He was placed on IV antibiotics and had an MRI which demonstrated abscess in the left foot. The patient was then scheduled for surgical treatment as indicated. All potential risks, benefits, complications, alternatives, rehab, potential for incomplete relief of symptoms, need for further surgery, DVT, PE, , persistent pain, swelling, scarring, weakness, neurovascular injury, wound complications, potential for amputation were discussed with the patient. The patient decided to proceed with the procedure as indicated. PROCEDURE IN DETAIL: The patient was taken to the operative suite, placed supine on the operating table. After reviewing consent and identification of proper operative site, the patient was anesthetized, LMA was placed. Tourniquet was placed high on the left thigh over cast padding, however, was not used during the case. The left lower extremity was then sterilely prepped and draped in usual fashion, elevated, and partially exsanguinated with the hindfoot extending proximally with a 4-inch Esmarch bandage and the 4-inch Esmarch bandage then applied over sterile surgical towel at the level of the ankle. The 15 blade scalpel was then used to carefully debride the dorsal third toe ulcer with obvious necrosis adjacent to the proximal interphalangeal joint. This was sharply debrided until healthy tissue after resecting superficial skin, subcutaneous tissue, fascia and subcutaneous fat. Next, a 15 blade scalpel was used to make an incision over the dorsum of the third intermetatarsal space, the incision was deepened through subcutaneous tissue. Meticulous hemostasis was achieved with electrocautery. There was noted to be an abscess pocket in the third intermetatarsal space. Purulent material was noted, this was then cultured, aerobic, anaerobic, Gram stain, approximately 7-10 mL of purulent fluid was noted. Next, the 15 blade scalpel was used to make an incision in the fourth intermetatarsal space, a separate incision with a 15 blade scalpel through the skin, subcutaneous tissue and fascia. Next, blunt dissection was performed through the fourth intermetatarsal space. Small purulent fluid pocket was noted toward the distal aspect of the intermetatarsal space, yielding approximately 1-2 mL of purulent fluid. Next, the rongeur was used to debride any obviously necrotic or devitalized tissue including subcutaneous fat, fascia and connective tissue. The joint capsules appeared to be largely intact. There were no tears or exposed bone noted. Next, pulsatile lavage with 6 liters of lavage solution with bacitracin was then used to irrigate the third and fourth intermetatarsal spaces until clear. Top gloves were changed, and at this point, one-quarter inch iodoform gauze drains x5 were placed in 5 separate locations, 1 proximal and 1 distal in each incision of the third and fourth intermetatarsal space incisions respectively and 1 into the third toe ulceration site. This completed. The incisions were then loosely closed over the drains with interrupted 3-0 nylon sutures. Next, approximately 10 mL of 0.5% Marcaine plain was then used to inject around the incision for postoperative pain control. Sterile compressive dressing including Xeroform gauze, sterile 4 x 4's, Kerlix roll, ABD pad and Webril was applied, overwrapped with an Mario wrap. The tourniquet was released, the patient was awakened and taken to recovery in stable condition. I attest to the content of the Intraoperative Record and any orders documented therein. Any exception s are noted below.
[2017-09-02 07:05] VITALS: BP 115/71; PULSE 98; TEMP 37; O2SAT 91
[2017-09-02] MEDS: TRAMADOL HCL 50 MG TAB PO PRN ×3 (07:27→21:56)
[2017-09-02 08:22] LABS: BASO % 0.3 %; BASO ABS # 0.04 K/uL (0-0.2); COMPLETE YES; EOS % 2.4 %; HEMATOCRIT 36.5 % (42-52); IG% 3.3 %; LYMPH % 15.7 %; LYMPH ABS # 1.83 K/uL (1.2-3.4); MEAN CELL VOLUME 85.5 fL (80-100); MEAN PLATELET VOLUME 8.4 fL (7.4-10.4); MONO % 6.8 %; NEUT % 71.5 %; PLATELET COUNT 367 K/uL (130-400); RED BLOOD COUNT 4.27 M/uL (4.7-6.1); WHITE BLOOD COUNT 11.66 K/uL (4.8-10.8)
[2017-09-02 09:00] LABS: BUN/CREATININE RATIO 13.7 (10-20); CALCIUM 9.3 mg/dl (8.5-10.1); CREATININE 0.84 mg/dl (0.60-1.40); POTASSIUM 4.3 mmol/L (3.5-5.1)
--- NOTE | 2017-09-02 09:09 | Anesthesiology Progress Note ---
Anesthesia Post Op Note Date & Time Sep 02, 2017 at 09:09 Vital Signs Pain Intensity: 7.0 Vital Signs Past 12 Hours Date Time Temp Pulse Resp B/P (MAP) Pulse Ox O2 Delivery O2 Flow Rate FiO2 09/02/17 07:05 37.0 98 20 115/71 (86) 91 Room Air 09/02/17 00:04 Room Air 09/01/17 23:59 36.8 96 20 121/56 (77) 92 Room Air 09/01/17 22:25 36.7 98 18 122/74 (90) 90 Room Air Notes Mental Status: alert / awake / arousable, participated in evaluation Pt Amnestic to Procedure: Yes Nausea / Vomiting: adequately controlled Pain: adequately controlled Airway Patency, RR, SpO2: stable & adequate BP & HR: stable & adequate Hydration State: stable & adequate Anesthetic Complications: no major complications apparent
[2017-09-02] MEDS: ASPIRIN 81 MG ECTAB PO SCH (09:13)
[2017-09-02] MEDS: DULOXETINE HCL 60 MG CAP PO SCH (09:13)
[2017-09-02] MEDS: LISINOPRIL 10 MG TAB PO SCH (09:13)
[2017-09-02] MEDS: ATORVASTATIN 10 MG TAB PO SCH (09:13)
[2017-09-02] MEDS: GABAPENTIN 400 MG CAP PO SCH ×3 (09:13→21:52)
[2017-09-02] MEDS: GABAPENTIN 600 MG TAB PO SCH ×3 (09:14→21:52)
[2017-09-02] MEDS: INSULIN ASPART 100 UNITS/ML 3 ML PEN SC SCH ×4 (09:17→21:55)
[2017-09-02] MEDS: INSULIN GLARGINE SOLOSTAR 100 UNITS/ML 3 ML PEN SC SCH ×2 (09:18→21:55)
[2017-09-02 11:29] VITALS: BP 133/77; PULSE 102; TEMP 36.8; O2SAT 93
--- NOTE | 2017-09-02 11:51 | Pharmacy Progress Note ---
Pharmacy Glycemic Short Note 2 Date of Service Sep 02, 2017. OUTPATIENT ANTIDIABETIC REGIMEN: * Lantus 38 units BID * Novolog per sliding scale ASSESSMENT: * Patient is POD #1 s/p I&D * He received 120 units of insulin yesterday with BSGs ranging from 98-181 mg/dL * He did receive a slightly lower dose of his PM Lantus since his BSG fell slightly after being NPO a majority of the day, but should be back to normal requirements today (~200 units) PLAN FOR INPATIENT GLYCEMIC CONTROL: * Continue Lantus 50 units BID * Continue Novolog ACHS * Goal 110-140 * CF 10 * CR 3 PLAN FOR DISCHARGE: * see note from 09/01
[2017-09-02] MEDS ORDERED: NURSING VERBAL MED ORDER ONE (13:45)
[2017-09-02 15:02] VITALS: BP 107/44; PULSE 111; TEMP 37.5; O2SAT 94
--- NOTE | 2017-09-02 15:26 | Orthopedic Progress Note ---
Orthopedic Progress Note Date of Service Sep 02, 2017. Subjective Post OP Day: 1 Reports: feeling well, Denies: complaints Objective capillary refill less than 2 sec., dressing C/D/I, A&O x3, toes mobile Date Time Temp Pulse Resp B/P (MAP) Pulse Ox O2 Delivery O2 Flow Rate FiO2 09/02/17 15:02 37.5 111 20 107/44 (65) 94 Room Air 09/02/17 11:29 36.8 102 18 133/77 (95) 93 Room Air 09/02/17 07:25 Room Air 09/02/17 07:05 37.0 98 20 115/71 (86) 91 Room Air 09/02/17 00:04 Room Air 09/01/17 23:59 36.8 96 20 121/56 (77) 92 Room Air 09/01/17 22:25 36.7 98 18 122/74 (90) 90 Room Air 09/01/17 21:04 36.5 97 18 113/72 (86) 91 Room Air 09/01/17 20:33 36.4 96 18 122/80 (94) 92 Nasal Cannula 1.0 09/01/17 19:56 37.0 111 18 116/66 (83) 94 Nasal Cannula 2.0 09/01/17 19:47 109 15 09/01/17 19:47 109 15 92 09/01/17 19:45 110/69 09/01/17 19:42 107 14 93 09/01/17 19:42 107 14 09/01/17 19:40 123/78 09/01/17 19:37 110 12 09/01/17 19:37 110 12 93 09/01/17 19:36 36.8 109 18 128/65 (103) 95 Oxymask 2 09/01/17 19:35 128/65 09/01/17 19:32 109 14 95 09/01/17 19:32 109 14 09/01/17 19:31 109 18 95 09/01/17 19:31 109 18 09/01/17 19:30 116/68 09/01/17 19:26 109 14 115/67 95 09/01/17 19:26 109 14 09/01/17 19:21 108 13 09/01/17 19:21 107 13 98 09/01/17 19:20 108 12 09/01/17 19:20 108 12 100/81 96 09/01/17 19:15 104 15 09/01/17 19:15 104 15 141/80 97 09/01/17 19:12 114/87 09/01/17 19:10 100 131/80 99 09/01/17 19:10 36.5 98 16 131/80 98 Oxymask 10 09/01/17 19:10 100 09/01/17 16:30 Room Air Laboratory Results 24 Hours: Test 09/02/17 08:05 White Blood Count 11.66 K/uL Red Blood Count 4.27 M/uL Hemoglobin 12.4 g/dL Hematocrit 36.5 % Mean Corpuscular Volume 85.5 fL Mean Corpuscular Hemoglobin 29.0 pg Mean Corpuscular Hemoglobin Concent 34.0 g/dl Platelet Count 367 K/uL Mean Platelet Volume 8.4 fL Neutrophils (%) (Auto) 71.5 % Lymphocytes (%) (Auto) 15.7 % Monocytes (%) (Auto) 6.8 % Eosinophils (%) (Auto) 2.4 % Basophils (%) (Auto) 0.3 % Neutrophils # (Auto) 8.34 K/uL Lymphocytes # (Auto) 1.83 K/uL Monocytes # (Auto) 0.79 K/uL Eosinophils # (Auto) 0.28 K/uL Basophils # (Auto) 0.04 K/uL Assessment & Plan Assessment: POD 1 s/p I&D Left Foot Currently Cx showing MSSA Plan: PT/OT WBAT on heel only with walker or crutches antibx as per Med/ID service Plan dressing change tomorrow with pkg removal.
[2017-09-02] MEDS ORDERED: DOCUSATE SODIUM/SENNA 50/8.6MG TAB PO ONE (15:30)
--- NOTE | 2017-09-02 15:38 | Progress Note ---
Medicine Progress Note Date & Time of Visit: Sep 02, 2017 at 15:28. Subjective resting, comfortable reports increased left foot pain post op still painful when walking denies other symptoms Objective Last 8 Hrs Date Time Temp Pulse Resp B/P (MAP) Pulse Ox O2 Delivery O2 Flow Rate FiO2 09/02/17 15:02 37.5 111 20 107/44 (65) 94 Room Air 09/02/17 11:29 36.8 102 18 133/77 (95) 93 Room Air Physical Exam: General- oriented x 3, not in distress, speaks in sentences with no effort Eyes- PERRL, EOMI Neck- no JVD Lungs- clear breath sounds bilaterally, no rales/wheezes Heart- regular rhythm; no murmur, normal rate Abdomen- normal bowel sounds, soft, nontender Extremities- left foot (+) dressing in place no pretibial edema, no calf tenderness; peripheral pulses intact Neuro- alert, oriented x 3; no gross focal deficits Skin- warm & dry Laboratory Results: Last 24 Hours Test 09/01/17 16:46 09/01/17 19:11 09/02/17 07:25 09/02/17 08:05 Bedside Glucose 99 mg/dl 98 mg/dl 121 mg/dl White Blood Count 11.66 K/uL Red Blood Count 4.27 M/uL Hemoglobin 12.4 g/dL Hematocrit 36.5 % Mean Corpuscular Volume 85.5 fL Mean Corpuscular Hemoglobin 29.0 pg Mean Corpuscular Hemoglobin Concent 34.0 g/dl Platelet Count 367 K/uL Mean Platelet Volume 8.4 fL Neutrophils (%) (Auto) 71.5 % Lymphocytes (%) (Auto) 15.7 % Monocytes (%) (Auto) 6.8 % Eosinophils (%) (Auto) 2.4 % Basophils (%) (Auto) 0.3 % Neutrophils # (Auto) 8.34 K/uL Lymphocytes # (Auto) 1.83 K/uL Monocytes # (Auto) 0.79 K/uL Eosinophils # (Auto) 0.28 K/uL Basophils # (Auto) 0.04 K/uL RDW Standard Deviation 39.9 fL RDW Coefficient of Variation 12.8 % Immature Granulocyte % (Auto) 3.3 % Immature Granulocyte # (Auto) 0.38 K/uL Sodium Level 135 mmol/L Potassium Level 4.3 mmol/L Chloride Level 99 mmol/L Carbon Dioxide Level 29 mmol/L Anion Gap 8.0 mmol/L Blood Urea Nitrogen 12 mg/dl Creatinine 0.84 mg/dl Est Creatinine Clear Calc Drug Dose 164.7 ml/min Estimated GFR () 124.3 Estimated GFR (Non- 107.2 BUN/Creatinine Ratio 13.7 Random Glucose 120 mg/dl Calcium Level 9.3 mg/dl Test 09/02/17 11:11 Bedside Glucose 151 mg/dl Date/Time Source Procedure Growth Status 09/01/17 18:36 Drainage-Deep Foot Left Gram Stain - Final Resulted 09/01/17 18:36 Bacterial Culture - Preliminary Staphylococcus Aureus Resulted Assessment & Plan SEPSIS SECONDARY TO LEFT FOOT ABSCESS Presented with elevated WBC, Tachycardia with elevated lactic acid Blood Cultures:No growth to date Wound Culture x 2: Staph. auerus: tejeda sensitive Left Foot Abscess culture: (+) Staph, sens pending -- MRI Foot: IMPRESSION: 1. Moderate cellulitis of the forefoot with 3.2 x 3.0 x 2.7 cm peripherally enhancing abscess surrounding the third proximal phalanx extending to the dorsal skin surface. Adjacent 6 x 4 mm focus of decreased T1 and T2 signal is suspicious for a foreign body or focus of air within the wound. Correlate with clinical exam. 2. Subacute appearing fracture of the fourth proximal phalanx with moderate associated bone marrow edema and periosteal reaction. 3. Mild bone marrow edema of the third proximal phalanx suggests reactive change without definite evidence of osteomyelitis at this time. -- s/p I&D by Ortho 09/03 having increased pain, add Toradol, increase Tramadol heel weight bearing as per Ortho PT/OT -- given Vanco + Zosyn x 4 days, transitioned to Ceftr 2g IV daily Day2 will also need ID consult for possible continuation of IV Ceftri on discharge Uncontrolled Diabetes Mellitus Type 2 Presented with BS above 500 Last A1c: 9.2 on 07/27/17 Continue Insulin therapy continue monitor Pharmacy consult for glycemic management Hyponatremia Secondary to hyperglycemia Resolved Continue monitor HTN On lisinopril 10 mg monitor trend HLP: Continue Lipitor Depression: continue home meds Tobacco use disorder: Nicotine patch H/O Gastroparesis/IBS stable DVT Px: heparin SQ Code Status: Full Code Disposition: will need PT/OT may need IV antibiotics on discharge, will consult ID ma need to be transitioned to Rehab Current Inpatient Medications: Current Inpatient Medications Medications (Trade) Dose Ordered Sig/Mario Alberto Route Start Time Stop Time Status Last Admin Dose Admin Aripiprazole (Abilify Tab) 10 mg HS PO 08/28/17 21:00 09/27/17 20:59 09/01/17 20:46 10 MG Aspirin (Ecotrin Tab) 81 mg DAILY PO 08/28/17 08:00 09/27/17 08:59 09/02/17 09:13 81 MG Atorvastatin Calcium (Lipitor Tab) 10 mg DAILY PO 08/28/17 08:00 09/27/17 08:59 09/02/17 09:13 10 MG Duloxetine HCl (Cymbalta Cap) 60 mg QAM PO 08/28/17 08:00 09/27/17 08:59 09/02/17 09:13 60 MG Gabapentin (Neurontin Cap) 400 mg TID PO 08/28/17 08:00 09/27/17 08:59 09/02/17 13:37 400 MG Gabapentin (Neurontin Tab) 600 mg TID PO 08/28/17 08:00 09/27/17 08:59 09/02/17 13:37 600 MG Lisinopril (Zestril Tab) 10 mg DAILY PO 08/28/17 08:00 09/27/17 08:59 09/02/17 09:13 10 MG Miscellaneous Information (Consult Glycemic Management Pharmacy) 1 ea UD PRN N/A 08/28/17 07:42 09/27/17 07:41 Glucose (Glucose 40% Gel) 15-30 GRAMS 15 GRAMS... UD PRN PO 08/28/17 07:45 09/27/17 07:44 Glucose (Glucose Chew Tab) 4-8 Tablets 4 Tabl... UD PRN PO 08/28/17 07:45 09/27/17 07:44 Dextrose (Dextrose 50% 50ML Syringe) 25-50ML OF 50% DW IV FOR... UD PRN IV 08/28/17 07:45 09/27/17 07:44 Glucagon (Glucagon Inj) 1 mg UD PRN SQ 08/28/17 07:45 09/27/17 07:44 Insulin Aspart (novoLOG ASPART) SLIDING SCALE ACHS SC 08/28/17 09:00 09/27/17 08:59 09/02/17 13:37 28 UNITS Gadobutrol (Gadavist) 13 mmol UD PRN IV 08/30/17 13:15 09/03/17 13:14 Ceftriaxone Sodium 2000 mg/ Dextrose 70 ml @ 140 mls/hr DAILY@1800 IV 09/01/17 18:00 09/11/17 17:59 09/01/17 18:09 140 MLS/HR Tramadol HCl (Ultram Tab) 50 mg Q4H PRN PO 09/02/17 09:45 09/28/17 19:59 09/02/17 11:26 50 MG Insulin Glargine (Lantus Solostar Pen) 50 units Q12 SC 09/02/17 21:00 10/02/17 20:59 Menthol (Nice Ashley) 1 ashley PRN PRN PO 09/02/17 14:00 10/02/17 13:59 Acetaminophen (Tylenol Tab) 650 mg Q4H PRN PO 09/02/17 15:00 10/02/17 14:59
[2017-09-02] MEDS: COUGH DROP (SUGAR FREE) LOZ 24 LOZ/1 BOX PO PRN (16:17)
[2017-09-02] MEDS: SODIUM CHLORIDE 0.9% 1000ML 1,000 ML IV SCH (19:56)
[2017-09-02] MEDS: ARIPIprazole TAB 10 MG TAB PO SCH (21:52)
[2017-09-02] MEDS: HEPARIN SOD 5000 UNIT/0.5 ML CARP SQ SCH (21:55)
[2017-09-02 23:59] VITALS: O2SAT 93
[2017-09-03] VITALS: BP 137/77; PULSE 91; TEMP 37.1; O2SAT 93
[2017-09-03] MEDS: SODIUM CHLORIDE 0.9% 1000ML 1,000 ML IV SCH ×2 (03:12→12:05)
[2017-09-03] MEDS: HEPARIN SOD 5000 UNIT/0.5 ML CARP SQ SCH ×3 (05:27→21:42)
[2017-09-03 07:18] VITALS: BP 104/52; PULSE 92; TEMP 37.1; O2SAT 94
[2017-09-03] MEDS: GABAPENTIN 600 MG TAB PO SCH ×3 (07:53→19:55)
[2017-09-03] MEDS: GABAPENTIN 400 MG CAP PO SCH ×3 (07:53→19:55)
[2017-09-03] MEDS: ASPIRIN 81 MG ECTAB PO SCH (07:53)
[2017-09-03] MEDS: DULOXETINE HCL 60 MG CAP PO SCH (07:54)
[2017-09-03] MEDS: ATORVASTATIN 10 MG TAB PO SCH (07:54)
[2017-09-03] MEDS: DOCUSATE SODIUM/SENNA 50/8.6MG TAB PO SCH (09:13)
[2017-09-03] MEDS: TRAMADOL HCL 50 MG TAB PO PRN ×3 (09:15→21:39)
[2017-09-03] MEDS: INSULIN ASPART 100 UNITS/ML 3 ML PEN SC SCH ×4 (09:16→21:39)
[2017-09-03] MEDS: INSULIN GLARGINE SOLOSTAR 100 UNITS/ML 3 ML PEN SC SCH (09:17)
--- NOTE | 2017-09-03 11:11 | Progress Note ---
Progress Note Date of Service Sep 03, 2017. Progress Note ID Consult Dictated #[id number] A/P: 1. Left foot Infection - MSSA -Continue with rocephin 2g IV Q24 hours, will likely need prolonged course - 6 weeks from debridement, tentative stop date 10/12. -Will need picc line -Will need weekly cbc,cmp, esr while on abx -Can follow with ID post d/c -No contraindication to d/c if no additional OR needed -Thank you
--- NOTE | 2017-09-03 11:47 | INFECT. DISEASE CONSULTATION ---
DATE OF CONSULTATION: 09/03/2017 REQUESTING PHYSICIAN: Chacorta Kendall MD HISTORY OF PRESENT ILLNESS: This is a 41-year-old gentleman who was brought to the ER secondary to hyperglycemia with blood sugars greater than 5000 and a left foot infection. He had previously been seen in the ER a few days prior to this admission. He was given a prescription for outpatient antibiotics, but he cannot recall the name. He continued to have worsening of his foot and he returned to the Emergency Room. He did have an MRI of his foot on the , which showed a 3.2 x 3 x 2.7 abscess with no evidence of osteomyelitis. He was taken to the operating room on the for I&D. He did have cultures obtained superficially on the and , both of which were growing MSSA. He had the wound culture on the , which was growing Staph aureus, sensitivities are pending. He is placed on Rocephin and is tolerating this well. He does have AN ALLERGY TO CEPHALOSPORINS, but has not had difficulty with Rocephin. His initial white blood cell count was 14,000. This has improved to 11. He did have blood cultures in the ER on the and those are negative and final. Infectious diseases were consulted for antibiotic recommendations. He states he has not had this operative dressing removed, but it should be done later today and a decision will be made if he needs any additional OR. He currently denies any fevers or chills. His only complaint is the pain in the foot, but he recently was ambulating with physical therapy prior to my examination. He denies any nausea, vomiting, diarrhea or abdominal pain. He has no chest pain, cough or shortness of breath. REVIEW OF SYSTEMS: All remaining review of systems are reviewed and are negative except for as noted. PAST MEDICAL HISTORY: Significant for depression, type 2 diabetes, gastroparesis, hypertension, irritable bowel syndrome. PAST SURGICAL HISTORY: Significant for left knee scope and tonsillectomy. FAMILY HISTORY: Noncontributory. SOCIAL HISTORY: Significant for daily tobacco use. He lives with his mother. He denies any recent sick contacts. He denies any drug or alcohol use. ALLERGIES: HE HAS ALLERGIES TO NSAIDS AND CEPHALOSPORINS, but is tolerating Rocephin during this admission. CURRENT MEDICATIONS: Include Lantus, Senokot, subQ heparin, Tylenol, Ultram, Rocephin, Abilify, insulin, aspirin, Lipitor, Cymbalta, Neurontin. PHYSICAL EXAMINATION: VITAL SIGNS: He is afebrile, pulse 92, respiratory rate is 20, blood pressure is 104/52, oxygen saturation is 94% on room air. GENERAL: He is awake, alert and oriented x3. He is in no acute distress. HEENT: Mucous membranes are moist. Extraocular muscles are intact. HEART: Regular. LUNGS: Clear. ABDOMEN: Soft, nontender, nondistended. EXTREMITIES: There is no lower extremity edema. Left foot dressing is clean, dry and intact. There is no surrounding erythema, warmth or tenderness. LABORATORY STUDIES: CBC on the reveals a white blood cell count of 11.6, hemoglobin 12.4 and platelets are 367. Chemistry panel reveals a sodium of 135, potassium 4.3, chloride 99, bicarbonate 29, BUN 12, creatinine 0.8, glucose is 202. Urinalysis was unremarkable. Again, all wound cultures and now including the wound culture from the are growing MSSA. Blood cultures are negative and final. ASSESSMENT AND PLAN: Left foot infection with Methicillin-sensitive Staphylococcus aureus. At this time, he will be continued on Rocephin. I suspect he will need a prolonged course of antibiotics, although no definitive osteomyelitis was identified. He is tolerating Rocephin well and can continue on this. His blood cultures were negative and final. He can have a PICC line placed. He states he is going to care home facility post-discharge. It is unclear if he will follow at the wound care center at this time. If he does follow at the wound care center, he can follow with infectious diseases at that time. Otherwise, he can follow up in the ID office. He will need weekly labs while on Rocephin and I do not see any contraindication to discharge on Rocephin if no additional surgery is needed.
--- NOTE | 2017-09-03 13:14 | Pharmacy Progress Note ---
Pharmacy Glycemic Short Note 2 Date of Service Sep 03, 2017. OUTPATIENT ANTIDIABETIC REGIMEN: * Lantus 38 units BID * Novolog per sliding scale ASSESSMENT: * BSGs 194, 178, 202, 146, 151, 121 * AM fasting slightly elevated this morning at 178mg/dl but has been in goal range with current basal insulin dosing. Will not make any change to basal today and increase tomorrow if BSG continues to trend upwards * Post-prandial BSGs trending upwards indicating more CR insulin is needed PLAN FOR INPATIENT GLYCEMIC CONTROL: * Basal insulin: no change * Lantus 50 units SQ BID * Bolus insulin: "tighten" carb ratio * NovoLog per scale ACHS or Q6hrs while NPO * Goal Range: Low 110 mg/dL - High 140 mg/dL * Correction Factor: 10 mg/dL/unit * Nutritional / Prandial insulin per carb ratio of 1 unit per 2 grams CHO consumed
[2017-09-03 14:38] VITALS: BP 161/92; PULSE 100; TEMP 36.7; O2SAT 94
--- NOTE | 2017-09-03 17:05 | Orthopedic Progress Note ---
Orthopedic Progress Note Date of Service Sep 03, 2017. Subjective Post OP Day: 2 Reports: feeling well, pain controlled w PO medications, Denies: complaints, chest pain, SOB, calf pain Additional Notes: Foot was painful yesterday but improved today. Objective calves soft nontender, N/V intact, capillary refill less than 2 sec., A&O x3, toes mobile Dorsal right foot incisions are well approximated. All iodoform gauze drains were removed. Dorsal foot erythema is mild. No significant drainage from any sites. No purulence or fluctuance noted. Mildly tender at the dorsal foot. Moderate tenderness at the plantar 3rd/4th MTP joints. Date Time Temp Pulse Resp B/P (MAP) Pulse Ox O2 Delivery O2 Flow Rate FiO2 09/03/17 14:38 36.7 100 20 161/92 (115) 94 Room Air 09/03/17 08:00 Room Air 09/03/17 07:18 37.1 92 20 104/52 (69) 94 Room Air 09/03/17 00:00 37.1 91 20 137/77 (97) 93 Room Air 09/02/17 23:59 93 Room Air Assessment & Plan Assessment: POD 2 s/p 1. Left foot incision and drainage third intermetatarsal space abscess. 2. Incision and drainage fourth intermetatarsal space abscess. 3. Debridement of third toe proximal interphalangeal joint ulcer including skin, subcutaneous tissue, fascia and subcutaneous fat Cx showing MSSA Plan: PT/OT WBAT on heel only with walker or crutches antibx as per Med/ID service Continue to monitor. Will probably change the dressing again on 09.05.17. If continued improvement, will plan for continued IV antibiotics and no further surgical management.
[2017-09-03] MEDS: CEFTRIAXONE SOD INJ 2000 MG in DEXTROSE 5% 50ML IV SCH (18:14)
[2017-09-03] MEDS: COUGH DROP (SUGAR FREE) LOZ 24 LOZ/1 BOX PO PRN (19:55)
--- NOTE | 2017-09-03 19:55 | Progress Note ---
Medicine Progress Note Date & Time of Visit: Sep 03, 2017 at 19:48. Subjective resting in bed, comfortable states left foot pain is slightly better today, worse with walking on it denies fever/chills, nausea no other symptoms Objective Last 8 Hrs Date Time Temp Pulse Resp B/P (MAP) Pulse Ox O2 Delivery O2 Flow Rate FiO2 09/03/17 16:00 Room Air 09/03/17 14:38 36.7 100 20 161/92 (115) 94 Room Air Physical Exam: General- oriented x 3, not in distress, speaks in sentences with no effort Eyes- EOMI, anicteric Neck- no JVD Lungs- clear breath sounds BL, no rales/wheezes Heart- regular rhythm; no murmur, normal rate Abdomen- normal bowel sounds, soft, nontender Extremities- left foot (+) dressing in place no pretibial edema, no calf tenderness; peripheral pulses intact Neuro- alert, oriented x 3; no gross focal deficits Skin- warm & dry Laboratory Results: Last 24 Hours Test 09/02/17 20:06 09/03/17 07:49 09/03/17 11:20 Bedside Glucose 202 mg/dl 178 mg/dl 194 mg/dl Assessment & Plan SEPSIS SECONDARY TO LEFT FOOT ABSCESS, MSSA Presented with elevated WBC, Tachycardia with elevated lactic acid Blood Cultures:No growth to date Wound Culture x 2: Staph. auerus: tejeda sensitive Left Foot Abscess culture: (+) Staph, pansensitive -- MRI Foot: IMPRESSION: 1. Moderate cellulitis of the forefoot with 3.2 x 3.0 x 2.7 cm peripherally enhancing abscess surrounding the third proximal phalanx extending to the dorsal skin surface. Adjacent 6 x 4 mm focus of decreased T1 and T2 signal is suspicious for a foreign body or focus of air within the wound. Correlate with clinical exam. 2. Subacute appearing fracture of the fourth proximal phalanx with moderate associated bone marrow edema and periosteal reaction. 3. Mild bone marrow edema of the third proximal phalanx suggests reactive change without definite evidence of osteomyelitis at this time. -- s/p I&D by Ortho 09/02 Post op day 1 heel weight bearing as per Ortho PT/OT -- given Vanco + Zosyn x 4 days, transitioned to Ceftr 2g IV daily Day 3 will need at least 6 weeks of IV antibiotics tentative last day of IV Ceftri 10/12 PICC line ordered will need ID follow, weekly CBC, CMP appreciate Dr. Pino's recommendations Uncontrolled Diabetes Mellitus Type 2 Presented with BS above 500 Last A1c: 9.2 on 07/27/17 Continue Insulin therapy continue monitor Pharmacy consult for glycemic management Hyponatremia Secondary to hyperglycemia Resolved Continue monitor HTN On lisinopril 10 mg monitor trend HLP: Continue Lipitor Depression: continue home meds Tobacco use disorder: Nicotine patch H/O Gastroparesis/IBS stable DVT Px: heparin SQ Code Status: Full Code Disposition: PT/OT IV Ceftri x 6 weeks SNF referral placed Current Inpatient Medications: Current Inpatient Medications Medications (Trade) Dose Ordered Sig/Mario Alberto Route Start Time Stop Time Status Last Admin Dose Admin Aripiprazole (Abilify Tab) 10 mg HS PO 08/28/17 21:00 09/27/17 20:59 09/02/17 21:52 10 MG Aspirin (Ecotrin Tab) 81 mg DAILY PO 08/28/17 08:00 09/27/17 08:59 09/03/17 07:53 81 MG Atorvastatin Calcium (Lipitor Tab) 10 mg DAILY PO 08/28/17 08:00 09/27/17 08:59 09/03/17 07:54 10 MG Duloxetine HCl (Cymbalta Cap) 60 mg QAM PO 08/28/17 08:00 09/27/17 08:59 09/03/17 07:54 60 MG Gabapentin (Neurontin Cap) 400 mg TID PO 08/28/17 08:00 09/27/17 08:59 09/03/17 13:55 400 MG Gabapentin (Neurontin Tab) 600 mg TID PO 08/28/17 08:00 09/27/17 08:59 09/03/17 13:55 600 MG Miscellaneous Information (Consult Glycemic Management Pharmacy) 1 ea UD PRN N/A 08/28/17 07:42 09/27/17 07:41 Glucose (Glucose 40% Gel) 15-30 GRAMS 15 GRAMS... UD PRN PO 08/28/17 07:45 09/27/17 07:44 Glucose (Glucose Chew Tab) 4-8 Tablets 4 Tabl... UD PRN PO 08/28/17 07:45 09/27/17 07:44 Dextrose (Dextrose 50% 50ML Syringe) 25-50ML OF 50% DW IV FOR... UD PRN IV 08/28/17 07:45 09/27/17 07:44 Glucagon (Glucagon Inj) 1 mg UD PRN SQ 08/28/17 07:45 09/27/17 07:44 Insulin Aspart (novoLOG ASPART) SLIDING SCALE ACHS SC 08/28/17 09:00 09/27/17 08:59 09/03/17 18:17 24 UNITS Ceftriaxone Sodium 2000 mg/ Dextrose 70 ml @ 140 mls/hr DAILY@1800 IV 09/01/17 18:00 09/11/17 17:59 09/03/17 18:14 140 MLS/HR Tramadol HCl (Ultram Tab) 50 mg Q4H PRN PO 09/02/17 09:45 09/28/17 19:59 09/03/17 15:05 50 MG Menthol (Nice Genevieve) 1 genevieve PRN PRN PO 09/02/17 14:00 10/02/17 13:59 09/02/17 16:17 1 GENEVIEVE Acetaminophen (Tylenol Tab) 650 mg Q4H PRN PO 09/02/17 15:00 10/02/17 14:59 Senna/Docusate Sodium (Senokot S Tab) 1 tab QAM PO 09/03/17 08:00 10/03/17 07:59 09/03/17 09:13 1 TAB Heparin Sodium (Porcine) (Heparin Sq 5000 Unit/0.5ml) 5,000 unit Q8 SQ 09/02/17 22:00 10/02/17 21:59 09/03/17 13:55 5,000 UNIT Insulin Glargine (Lantus Vial) 50 units Q12 SC 09/03/17 21:00 10/03/17 20:59 Benzocaine (Dermoplast Aero Spr) 1 appln TID PRN EXT 09/03/17 19:45 10/03/17 19:44 UNV
[2017-09-03] MEDS: INSULIN GLARGINE SC SCH (21:00)
[2017-09-03] MEDS: ARIPIprazole TAB 10 MG TAB PO SCH (21:39)
[2017-09-03 23:55] VITALS: BP 107/67; PULSE 88; TEMP 36.7; O2SAT 92
[2017-09-04] MEDS: HEPARIN SOD 5000 UNIT/0.5 ML CARP SQ SCH ×3 (06:11→21:26)
[2017-09-04 07:04] VITALS: BP 125/78; PULSE 89; TEMP 36.8; O2SAT 91
[2017-09-04] MEDS: DOCUSATE SODIUM/SENNA 50/8.6MG TAB PO SCH (09:11)
[2017-09-04] MEDS: DULOXETINE HCL 60 MG CAP PO SCH (09:11)
[2017-09-04] MEDS: ASPIRIN 81 MG ECTAB PO SCH (09:11)
[2017-09-04] MEDS: GABAPENTIN 400 MG CAP PO SCH ×3 (09:11→20:25)
[2017-09-04] MEDS: GABAPENTIN 600 MG TAB PO SCH ×3 (09:11→20:25)
[2017-09-04] MEDS: ATORVASTATIN 10 MG TAB PO SCH (09:11)
[2017-09-04] MEDS: INSULIN ASPART 100 UNITS/ML 3 ML PEN SC SCH ×4 (09:36→21:24)
[2017-09-04] MEDS: INSULIN GLARGINE SC SCH ×2 (09:37→21:25)
--- NOTE | 2017-09-04 10:20 | Psychiatric Consultation ---
Psychiatric Consultation Date of Service: Sep 04, 2017. Identifying Data Bry Akhtar is a 41-year-old male who currently resides in a camper in [place] with his mother. Pt presented to the ED for hyperglycemia and upon evaluation was noted to have worsening cellulitis of his left foot. Pt is seen for psychiatric consult to aid with target process for SNF placement in order for patient to receive IV antibiotics to target ongoing cellulitis. He has a psychiatric history of recurrent depression and chronic pain. Last seen by psychiatry in June 2017. History obtained from patient who is deemed to be reliable. Chief Complaint "I've just been having issues with my foot and blood sugars". History of Present Illness Bry Akhtar is a 41-year-old male insulin-dependent diabetic who presented to the ED last week for cellulitis of his left foot. A few days later his blood sugars were elevated over 600 and he returned to the ED after several episodes of nausea and vomiting. During this visit to the ED, it was noted that the cellulitis was worsening and pt was admitted for continued monitoring of blood glucose as well as wound evaluation. Pt reports he was taken to surgery on and the "abscess was drained". Due to the severity of the infection, the pt reports he suggested inpatient rehabilitation while he receives IV antibiotics. He reports they are evaluating the wound again tomorrow and will determine from there if anything more needs to be done while he is in the hospital. Pt reports he will be going to [facility] for treatment until his foot heals. Pt denies any psychiatric concerns at this time and states he has been doing well on his current regimen of Abilify 10mg qHS and Cymbalta 60mg qAM. Pt is also prescribed Neurontin 1000mg TID. Pt states his depression has been under control and he is feeling good despite current medical issues. He denies SI/HI , A/V hallucinations, or acute psychosis. Pt denies issues with sleep, appetite , or concentration. He is currently seeing Lisandra Quispe PA-C for psychiatric medication management and YOVANI Stock for therapy. He also has a case preparer and liner, Norma De Oliveira. Past Psychiatric History Current OP Treatment: psychiatrist (Lisandra Quispe at [facility]), therapist (Leodan Flood), case preparer and liner (Dave) Prior Psych Hospitalizations: [facility] (multiple--April and Sept 2017 most recent), other Access to a Gun: No Suicide Attempts: Previous SI requiring inpatient hospitalization Past Medication Trials mirtazapine lithium - toxicity quetiapine others he cannot recall Additional Notes Diagnosed with recurrent depression Past Medical/Surgical History (1) NSVT (nonsustained ventricular tachycardia) (2) Chronic low back pain (3) HTN (hypertension) (4) DM type 2 (diabetes mellitus, type 2) (5) IBS (irritable bowel syndrome) Allergies Allergies: Coded Allergies: Cephalosporins (Verified Allergy, Unknown, AR, 05/12/17) Home Medications Reported Home Medications Medications Dose Route/Sig Max Daily Dose Days Date Category Dose Instructions Prinivil (Lisinopril) 10 Mg Tab 1 Tab PO DAILY 08/28/17 Reported Lipitor (Atorvastatin Calcium) 10 Mg Tab 1 Tab PO DAILY 08/28/17 Reported Miralax (Polyethylene Glycol 3350) 1 Pow 17 Gm PO DAILY PRN 08/28/17 Reported Cleocin (Clindamycin Hcl) 300 Mg Cap 300 Mg PO QID 10 08/26/17 Rx Bactrim Ds 800MG/160MG (Trimethoprim/Sulfamethoxazole) Tab 1 Tab PO BID 10 08/26/17 Rx Aspirin Ec (Aspirin) 81 Mg Tab 81 Mg PO DAILY 07/31/17 Reported Nicorelief (Nicotine Polacrilex) 1 Piece Gum 1 Piece PO DIRECTED PRN 07/24/17 Reported Cymbalta (Duloxetine Hcl) 60 Mg Cap 60 Mg PO QAM 07/24/17 Reported Tramadol HCl 50 Mg Tab 25 Mg PO Q8 PRN 06/22/17 Reported Aripiprazole 10 Mg Tab 10 Mg PO HS 06/22/17 Reported Gabapentin 600 Mg Tab 600 Mg PO TID 06/22/17 Reported TAKE ONE 600 MG TABLET ALONG WITH ONE 400 MG TABLET TO EQUAL 1000 MG DOSE Gabapentin 400 Mg Cap 400 Mg PO TID 06/22/17 Reported TAKE ONE 400 MG TABLET ALONG WITH ONE 600 MG TABLET TO EQUAL 1000 MG DOSE Lantus Solostar (Insulin Glargine) 100 Unit/Ml Inj 38 Units SC BID 06/14/17 Reported Novolog Flexpen (Insulin Aspart) 100 Units/Ml Inj 1 Dose SC PC 04/18/17 Reported COVERAGE DIRECTED BY SLIDING SCALE Family History Cancer Diabetes mellitus MOTHER GRANDMOTHER UNCLE AUNT Gallbladder disease Heart disease Hypertension MOTHER FATHER Lung disease History of Suicide: No History of Substance Abuse: Yes (paternal uncle alcoholic) Psychiatric History: Yes (Brother has unclear "psych problems," and uncle "thinks he's a different person each week, he's in a state institution," nephew with ADHD "and his mom thinks he's bipolar.") Alcohol Use Alcohol Use In Past 12 Months: Yes--12 beers per week Smoking Use Smoking Status: Current Every Day Smoker 1 PPD Substance History Denies illicit drug use in years. Remote history of cannabis at age 25. Used PCP or marijuana at age 4 when older cousin gave it to him. Personal History Lives in: [place] in [facility] with his mother Childhood: 2 younger siblings Education: graduated from high school (has some credits from [employer]) Work History: Unemployed Relationship History: ( in 06/2016) Children: none Spiritual Affiliation: Taoist Legal History: none Psychological Trauma History: Significant Loss, Other (Denies abuse.) Review of Systems 10 systems reviewed, positive for back and knee pain, others negative except as stated above. Labs Test 08/28/17 04:50 08/28/17 04:56 08/28/17 06:20 08/28/17 09:46 Total Bilirubin 0.5 Aspartate Amino Transferase (AST) 8 Alanine Aminotransferase (ALT) 18 Alkaline Phosphatase 94 Total Protein 8.3 Albumin 3.1 Globulin 5.2 Albumin/Globulin Ratio 0.6 Beta-Hydroxybutyric Acid 0.50 POC Lactic Acid Venous 2.60 Urine Color YELLOW Urine Appearance CLEAR Urine pH 6.0 Urine Specific Dayhoit 1.038 Urine Protein NEG Urine Glucose (UA) 3+ Urine Ketones NEG Urine Occult Blood NEG Urine Nitrite NEG Urine Bilirubin NEG Urine Urobilinogen POS Urine Leukocyte Esterase NEG Urine WBC (Auto) Urine RBC (Auto) Urine Hyaline Casts (Auto) Urine Epithelial Cells (Auto) Urine Bacteria (Auto) Urine RBC 0-4 Urine WBC 1-5 Urine Epithelial Cells 0-5 Urine Bacteria NEG Lactic Acid Level 1.3 Test 08/30/17 06:08 08/30/17 13:43 08/31/17 06:02 08/31/17 13:41 Magnesium Level 2.2 2.0 Vancomycin Level Trough 12.0 12.3 White Blood Count 8.36 Red Blood Count 4.16 Hemoglobin 11.7 Hematocrit 35.1 Mean Corpuscular Volume 84.4 Mean Corpuscular Hemoglobin 28.1 Mean Corpuscular Hemoglobin Concent 33.3 Platelet Count 315 Mean Platelet Volume 8.7 Neutrophils (%) (Auto) 57.4 Lymphocytes (%) (Auto) 24.0 Monocytes (%) (Auto) 8.6 Eosinophils (%) (Auto) 4.9 Basophils (%) (Auto) 1.0 Neutrophils # (Auto) 4.80 Lymphocytes # (Auto) 2.01 Monocytes # (Auto) 0.72 Eosinophils # (Auto) 0.41 Basophils # (Auto) 0.08 RDW Standard Deviation 38.5 RDW Coefficient of Variation 12.5 Immature Granulocyte % (Auto) 4.1 Immature Granulocyte # (Auto) 0.34 Sodium Level 137 Potassium Level 4.0 Chloride Level 101 Carbon Dioxide Level 27 Anion Gap 9.0 Blood Urea Nitrogen 12 Creatinine 0.70 Est Creatinine Clear Calc Drug Dose 197.7 Estimated GFR () 134.0 Estimated GFR (Non- 115.6 BUN/Creatinine Ratio 17.8 Random Glucose 172 Calcium Level 8.9 Test 09/02/17 08:05 09/03/17 21:10 09/04/17 07:47 White Blood Count 11.66 Red Blood Count 4.27 Hemoglobin 12.4 Hematocrit 36.5 Mean Corpuscular Volume 85.5 Mean Corpuscular Hemoglobin 29.0 Mean Corpuscular Hemoglobin Concent 34.0 Platelet Count 367 Mean Platelet Volume 8.4 Neutrophils (%) (Auto) 71.5 Lymphocytes (%) (Auto) 15.7 Monocytes (%) (Auto) 6.8 Eosinophils (%) (Auto) 2.4 Basophils (%) (Auto) 0.3 Neutrophils # (Auto) 8.34 Lymphocytes # (Auto) 1.83 Monocytes # (Auto) 0.79 Eosinophils # (Auto) 0.28 Basophils # (Auto) 0.04 RDW Standard Deviation 39.9 RDW Coefficient of Variation 12.8 Immature Granulocyte % (Auto) 3.3 Immature Granulocyte # (Auto) 0.38 Sodium Level 135 Potassium Level 4.3 Chloride Level 99 Carbon Dioxide Level 29 Anion Gap 8.0 Blood Urea Nitrogen 12 Creatinine 0.84 Est Creatinine Clear Calc Drug Dose 164.7 Estimated GFR () 124.3 Estimated GFR (Non- 107.2 BUN/Creatinine Ratio 13.7 Random Glucose 120 Calcium Level 9.3 POC Glucose 117 140 Mental Examination During interview pt is: alert and oriented, cooperative Appearance: appropriately dressed Eye contact is: good Motor behavior is: no psychomotor retardation or agitation noted; observed in bed with left foot wrapped in large bandage Speech: loud Affect: mood congruent Mood is: "I'm ok" Thought process: goal directed, concrete Thought content: reality based without delusions Suicidal thought are: denied Homicidal thoughts are: denied Hallucinations: denies auditory, denies visual Cognition: attention grossly intact, language grossly intact, memory grossly intact Intelligence estimated to be: below average Insight: fair Judgement: fair Impression / Recommendations Impression 41-year-old white male with multiple medical problems including obesity , diabetes, hyperlipidemia, and chronic pain as well as recurrent depression who is consulted for target process to SNF for inpatient rehabilitation and administration of IV antibiotic course. Recommendations The patient is psychiatrically stable for transfer to a detention facility. There is no acute indication for inpatient psychiatric hospitalization as the patient is not suicidal or homicidal; there is no evidence of psychosis. Psychiatric follow-up care for this patient should include: ongoing med management following discharge from inpatient rehab.
--- NOTE | 2017-09-04 12:15 | Progress Note ---
Medicine Progress Note Date & Time of Visit: Sep 04, 2017 at 12:13. Subjective patient seen resting in bed comfortable in good spirits states left foot pain and distal leg pain is still present- seems to be improving denies other symptoms Objective Last 8 Hrs Date Time Temp Pulse Resp B/P (MAP) Pulse Ox O2 Delivery O2 Flow Rate FiO2 09/04/17 08:00 Room Air 09/04/17 07:04 36.8 89 20 125/78 (94) 91 Room Air Physical Exam: General- oriented x 3, not in distress, speaks in sentences with no effort Eyes- anicteric Neck- no JVD Lungs- clear breath sounds bilateralyl Heart- regular rhythm; no murmur, normal rate Abdomen- normal bowel sounds, soft, nontender Extremities- left foot (+) dressing in place, toes visible- no cyanosis, active bleeding no pretibial edema, no calf tenderness; peripheral pulses intact Neuro- alert, oriented x 3; no gross focal deficits Skin- warm & dry Laboratory Results: Last 24 Hours Test 09/03/17 16:55 09/03/17 21:10 09/04/17 07:47 09/04/17 11:29 Bedside Glucose 87 mg/dl 117 mg/dl 140 mg/dl 142 mg/dl Assessment & Plan SEPSIS SECONDARY TO LEFT FOOT ABSCESS, MSSA Presented with elevated WBC, Tachycardia with elevated lactic acid Blood Cultures:No growth to date Wound Culture x 2: Staph. auerus: tejeda sensitive Left Foot Abscess culture: (+) Staph, pansensitive -- MRI Foot: IMPRESSION: 1. Moderate cellulitis of the forefoot with 3.2 x 3.0 x 2.7 cm peripherally enhancing abscess surrounding the third proximal phalanx extending to the dorsal skin surface. Adjacent 6 x 4 mm focus of decreased T1 and T2 signal is suspicious for a foreign body or focus of air within the wound. Correlate with clinical exam. 2. Subacute appearing fracture of the fourth proximal phalanx with moderate associated bone marrow edema and periosteal reaction. 3. Mild bone marrow edema of the third proximal phalanx suggests reactive change without definite evidence of osteomyelitis at this time. -- s/p I&D by Ortho 09/02 Post op day 2 heel weight bearing as per Ortho PT/OT -- given Vanco + Zosyn x 4 days, transitioned to Ceftr 2g IV daily Day 4 will need at least 6 weeks of IV antibiotics tentative last day of IV Ceftri 10/12 PICC line ordered will need ID follow, weekly CBC, CMP appreciate Dr. Pino's recommendations -- check Doppler US to r/o DVT on the left leg Uncontrolled Diabetes Mellitus Type 2 Presented with BS above 500 Last A1c: 9.2 on 07/27/17 Continue Insulin therapy continue monitor Pharmacy consult for glycemic management Hyponatremia Secondary to hyperglycemia Resolved Continue monitor HTN On lisinopril 10 mg monitor trend HLP: Continue Lipitor Depression: continue home meds Tobacco use disorder: Nicotine patch H/O Gastroparesis/IBS stable DVT Px: heparin SQ Code Status: Full Code Disposition: PT/OT IV Ceftri x 6 weeks SNF referral placed Current Inpatient Medications: Current Inpatient Medications Medications (Trade) Dose Ordered Sig/Mario Alberto Route Start Time Stop Time Status Last Admin Dose Admin Aripiprazole (Abilify Tab) 10 mg HS PO 08/28/17 21:00 09/27/17 20:59 09/03/17 21:39 10 MG Aspirin (Ecotrin Tab) 81 mg DAILY PO 08/28/17 08:00 09/27/17 08:59 09/04/17 09:11 81 MG Atorvastatin Calcium (Lipitor Tab) 10 mg DAILY PO 08/28/17 08:00 09/27/17 08:59 09/04/17 09:11 10 MG Duloxetine HCl (Cymbalta Cap) 60 mg QAM PO 08/28/17 08:00 09/27/17 08:59 09/04/17 09:11 60 MG Gabapentin (Neurontin Cap) 400 mg TID PO 08/28/17 08:00 09/27/17 08:59 09/04/17 09:11 400 MG Gabapentin (Neurontin Tab) 600 mg TID PO 08/28/17 08:00 09/27/17 08:59 09/04/17 09:11 600 MG Miscellaneous Information (Consult Glycemic Management Pharmacy) 1 ea UD PRN N/A 08/28/17 07:42 09/27/17 07:41 Glucose (Glucose 40% Gel) 15-30 GRAMS 15 GRAMS... UD PRN PO 08/28/17 07:45 09/27/17 07:44 Glucose (Glucose Chew Tab) 4-8 Tablets 4 Tabl... UD PRN PO 08/28/17 07:45 09/27/17 07:44 Dextrose (Dextrose 50% 50ML Syringe) 25-50ML OF 50% DW IV FOR... UD PRN IV 08/28/17 07:45 09/27/17 07:44 Glucagon (Glucagon Inj) 1 mg UD PRN SQ 08/28/17 07:45 09/27/17 07:44 Insulin Aspart (novoLOG ASPART) SLIDING SCALE ACHS SC 08/28/17 09:00 09/27/17 08:59 09/04/17 09:36 35 UNITS Ceftriaxone Sodium 2000 mg/ Dextrose 70 ml @ 140 mls/hr DAILY@1800 IV 09/01/17 18:00 09/11/17 17:59 09/03/17 18:14 140 MLS/HR Tramadol HCl (Ultram Tab) 50 mg Q4H PRN PO 09/02/17 09:45 09/28/17 19:59 09/03/17 21:39 50 MG Menthol ([place]evieve) 1 genevieve PRN PRN PO 09/02/17 14:00 10/02/17 13:59 09/03/17 19:55 24 GENEVIEVE Acetaminophen (Tylenol Tab) 650 mg Q4H PRN PO 09/02/17 15:00 10/02/17 14:59 Senna/Docusate Sodium (Senokot S Tab) 1 tab QAM PO 09/03/17 08:00 10/03/17 07:59 09/04/17 09:11 1 TAB Heparin Sodium (Porcine) (Heparin Sq 5000 Unit/0.5ml) 5,000 unit Q8 SQ 09/02/17 22:00 10/02/17 21:59 09/04/17 06:11 5,000 UNIT Insulin Glargine (Lantus Vial) 50 units Q12 SC 09/03/17 21:00 10/03/17 20:59 09/04/17 09:37 50 UNITS Phenol (Chloraseptic 1.4% [place]) 1 sprays TID PRN MT 09/03/17 19:45 10/03/17 19:44
--- NOTE | 2017-09-04 12:20 | Pharmacy Progress Note ---
Glycemic: Assessment & Plan Date of Service Sep 04, 2017. Assessment & Plan The patient is currently receiving ~170 units of insulin per day. BSGs ranging 87 - 194 mg/dl over the past 24hrs. Item Value Date Time Bedside Glucose 142 mg/dl H 09/04/17 1129 Bedside Glucose 140 mg/dl H 09/04/17 0747 Bedside Glucose 117 mg/dl H 09/03/17 2110 Bedside Glucose 87 mg/dl 09/03/17 1655 Bedside Glucose 194 mg/dl H 09/03/17 1120 Bedside Glucose 178 mg/dl H 09/03/17 0749 * Basal insulin: Lantus 50 units every 12 hours * Correctional Insulin: Novolog Correction per scale ACHS Goal Range: Low 110 mg/dL - High 140 mg/dL Correction Factor: 10 mg/dL/unit * Prandial insulin: Per carb ratio of 1 unit per 2 grams CHO consumed BSGs continue to improve, no changes needed to inpatient regimen at this time. Pharmacy will continue to monitor patient daily and write orders per [facility] inpatient glycemic control protocol. Thanks. * Please note that the plan above was derived based on current level of insulin resistance and hospital stress. These recommendations are appropriate for inpatient admission only. Plan of care upon discharge will need to be reassessed to avoid potential outpatient hypo/hyperglycemia.
[2017-09-04 14:31] VITALS: BP 137/79; PULSE 98; TEMP 37.1; O2SAT 93
--- NOTE | 2017-09-04 14:58 | DIAGNOSTIC IMAGING REPORT ---
ULTRASOUND L VENOUS DOPP LOWER EXT UNILAT CLINICAL HISTORY: Left leg swelling, cellulitis. Pain. COMPARISON STUDY: 06/06/2017 FINDINGS: Real-time and color flow Doppler imaging were performed. Flow was seen within the femoral, popliteal and calf veins with no intraluminal thrombus demonstrated. The saphenous vein is patent. IMPRESSION: No evidence of left lower extremity DVT. Electronically signed by: Ortzi Driscoll M.D. 09/04/2017 2:57 PM Dictated Date/Time: 09/04/2017 2:56 PM
[2017-09-04] MEDS: CEFTRIAXONE SOD INJ 2000 MG in DEXTROSE 5% 50ML IV SCH (17:29)
[2017-09-04 21:00] VITALS: O2SAT 93
[2017-09-04] MEDS: ARIPIprazole TAB 10 MG TAB PO SCH (21:27)
[2017-09-05 00:16] VITALS: BP 113/73; PULSE 91; TEMP 36.6; O2SAT 91
[2017-09-05] MEDS: HEPARIN SOD 5000 UNIT/0.5 ML CARP SQ SCH ×3 (06:11→20:28)
[2017-09-05 07:00] VITALS: BP 143/88; PULSE 95; TEMP 36.4; O2SAT 98
[2017-09-05] MEDS: GABAPENTIN 400 MG CAP PO SCH ×3 (07:41→19:56)
[2017-09-05] MEDS: GABAPENTIN 600 MG TAB PO SCH ×3 (07:41→19:56)
[2017-09-05] MEDS: DULOXETINE HCL 60 MG CAP PO SCH (07:42)
[2017-09-05] MEDS: ASPIRIN 81 MG ECTAB PO SCH (07:42)
[2017-09-05] MEDS: DOCUSATE SODIUM/SENNA 50/8.6MG TAB PO SCH (07:42)
[2017-09-05] MEDS: ATORVASTATIN 10 MG TAB PO SCH (07:42)
[2017-09-05] MEDS: CHLORASEPTIC 1.4% SOLN 180 ML BTL MT PRN ×2 (07:43→20:02)
--- NOTE | 2017-09-05 08:51 | Orthopedic Progress Note ---
Orthopedic Progress Note Date of Service Sep 05, 2017. Subjective Post OP Day: 2 Reports: feeling well, Denies: chest pain, SOB, nausea / vomiting, light headedness, calf pain Objective calves soft nontender, N/V intact, capillary refill less than 2 sec., dressing C /D/I, incision C/D/I, A&O x3, toes mobile DRESSING REMOVED. INCISIONS HEALING WELL. NO PURULENCE NOTED, NO DRAINAGE. AREAS BETWEEN AND UNDER 4TH/5TH TOES MACERATED. WILL NEED CLOSE MONITORING. Date Time Temp Pulse Resp B/P (MAP) Pulse Ox O2 Delivery O2 Flow Rate FiO2 09/05/17 07:00 36.4 95 20 143/88 (106) 98 Room Air 09/05/17 01:21 Room Air 09/05/17 00:16 36.6 91 20 113/73 (86) 91 Room Air 09/04/17 21:00 93 Room Air 09/04/17 16:00 Room Air 09/04/17 14:31 37.1 98 20 137/79 (98) 93 Room Air Assessment & Plan Assessment: POD 2 s/p 1. Left foot incision and drainage third intermetatarsal space abscess. 2. Incision and drainage fourth intermetatarsal space abscess. 3. Debridement of third toe proximal interphalangeal joint ulcer including skin, subcutaneous tissue, fascia and subcutaneous fat Cx showing MSSA Plan: PT/OT WBAT on heel only with walker or crutches antibx as per Med/ID service transitioned to Ceftr 2g IV daily Day 4 will need at least 6 weeks of IV antibiotics tentative last day of IV Ceftri 10/12 PICC line ordered will need ID follow, weekly CBC, CMP appreciate Dr. Pino's recommendations DRESSING CHANGE IN AM AND WILL LIKELY SIGN OFF IF STABLE.
[2017-09-05] MEDS: INSULIN ASPART 100 UNITS/ML 3 ML PEN SC SCH ×4 (09:19→20:28)
[2017-09-05] MEDS: INSULIN GLARGINE SC SCH ×2 (09:20→20:27)
--- NOTE | 2017-09-05 12:14 | Pharmacy Progress Note ---
Pharmacy Glycemic Short Note 2 Date of Service Sep 05, 2017. OUTPATIENT ANTIDIABETIC REGIMEN: * Lantus 38 units BID * Novolog per sliding scale ASSESSMENT: * Pt has been receiving ~ 190 units of insulin per day with adequate control * Regimen is split ~ 50% basal : 50% prandial insulin * Basal: Lantus 50 units SQ BID (AM fasting BSGs 121, 178, 140 ,154 over the past few days) * Prandial: per carb ratio of 2.5 (post prandial BSGs 187, 142, 78, 194, 87 over the past few days) * BSGs ranging 78-187 mg/dl over the past 24hrs. * Tight glycemic control crucial for wound healing. * Also, recommend zinc, vitamin C and protein supplementation to promote wound healing in wound care patients * Zinc: 50 mg elemental zinc (e.g., 220 mg zinc sulfate) PO three times per day until wound healed. * Vitamin C: 500-3000mg/day depending on whether it causes soft stool, then back off * Protein: may consult dietary for protein supplement recommendation. Could consider boost glucose control supplement PLAN FOR INPATIENT GLYCEMIC CONTROL: no changes needed to regimen at this time * Basal insulin * Lantus 50 units SQ BID * Bolus insulin * NovoLog per scale ACHS or Q6hrs while NPO * Goal Range: Low 110 mg/dL - High 140 mg/dL * Correction Factor: 10 mg/dL/unit * Nutritional / Prandial insulin per carb ratio of 1 unit per 2.5 grams CHO consumed PLAN FOR DISCHARGE: A1c is elevated at 9.2% on 07/27/17 * A1c is elevated secondary to pt skipping/missing bolus insulin dosing * Tight glycemic control is necessary for wound healing - fixed doses of NovoLog (rather than carb counting) may help increase compliance Recommend: * Lantus 50 units SQ BID * NovoLog 28 units SQ three times a day with meals
[2017-09-05] MEDS: TRAMADOL HCL 50 MG TAB PO PRN ×2 (14:04→20:00)
[2017-09-05 14:42] VITALS: BP 122/70; PULSE 101; TEMP 36.9; O2SAT 96
[2017-09-05] MEDS: CEFTRIAXONE SOD INJ 2000 MG in DEXTROSE 5% 50ML IV SCH (17:56)
--- NOTE | 2017-09-05 19:16 | Progress Note ---
Medicine Progress Note Date & Time of Visit: Sep 05, 2017 at 19:15. Subjective seen resting in bed, comfortable leg and foot pain improving denies other symptoms Objective Last 8 Hrs Date Time Temp Pulse Resp B/P (MAP) Pulse Ox O2 Delivery O2 Flow Rate FiO2 09/05/17 14:42 36.9 101 20 122/70 (87) 96 Room Air Physical Exam: General- oriented x 3, not in distress, speaks in sentences with no effort Neck- no JVD Lungs- clear breath sounds bilaterally Heart- regular rhythm; no murmur, normal rate Abdomen- normal bowel sounds, soft, nontender Extremities- left foot (+) dressing in place, toes visible- no cyanosis, active bleeding no pretibial edema, no calf tenderness; peripheral pulses intact Neuro- alert, oriented x 3; no gross focal deficits Skin- warm & dry Laboratory Results: Last 24 Hours Test 09/04/17 20:26 09/05/17 07:39 09/05/17 11:36 09/05/17 16:33 Bedside Glucose 170 mg/dl 154 mg/dl 187 mg/dl 125 mg/dl Assessment & Plan SEPSIS SECONDARY TO LEFT FOOT ABSCESS, MSSA Presented with elevated WBC, Tachycardia with elevated lactic acid Blood Cultures:No growth to date Wound Culture x 2: Staph. auerus: tejeda sensitive Left Foot Abscess culture: (+) Staph, pansensitive -- MRI Foot: IMPRESSION: 1. Moderate cellulitis of the forefoot with 3.2 x 3.0 x 2.7 cm peripherally enhancing abscess surrounding the third proximal phalanx extending to the dorsal skin surface. Adjacent 6 x 4 mm focus of decreased T1 and T2 signal is suspicious for a foreign body or focus of air within the wound. Correlate with clinical exam. 2. Subacute appearing fracture of the fourth proximal phalanx with moderate associated bone marrow edema and periosteal reaction. 3. Mild bone marrow edema of the third proximal phalanx suggests reactive change without definite evidence of osteomyelitis at this time. -- s/p I&D by Ortho 09/02 Post op day 2 heel weight bearing as per Ortho PT/OT -- given Vanco + Zosyn x 4 days, transitioned to Ceftr 2g IV daily Day 5 will need at least 6 weeks of IV antibiotics tentative last day of IV Ceftri 10/12 PICC line ordered will need ID follow, weekly CBC, CMP appreciate Dr. Pino's recommendations -- check Doppler US to r/o DVT on the left leg: negative Uncontrolled Diabetes Mellitus Type 2 Presented with BS above 500 Last A1c: 9.2 on 07/27/17 Continue Insulin therapy continue monitor Pharmacy consult for glycemic management Hyponatremia Secondary to hyperglycemia Resolved Continue monitor HTN On lisinopril 10 mg monitor trend HLP: Continue Lipitor Depression: continue home meds Tobacco use disorder: Nicotine patch H/O Gastroparesis/IBS stable DVT Px: heparin SQ Code Status: Full Code Disposition: PT/OT IV Ceftri x 6 weeks SNF referral placed Current Inpatient Medications: Current Inpatient Medications Medications (Trade) Dose Ordered Sig/Mario Alberto Route Start Time Stop Time Status Last Admin Dose Admin Aripiprazole (Abilify Tab) 10 mg HS PO 08/28/17 21:00 09/27/17 20:59 09/04/17 21:27 10 MG Aspirin (Ecotrin Tab) 81 mg DAILY PO 08/28/17 08:00 09/27/17 08:59 09/05/17 07:42 81 MG Atorvastatin Calcium (Lipitor Tab) 10 mg DAILY PO 08/28/17 08:00 09/27/17 08:59 09/05/17 07:42 10 MG Duloxetine HCl (Cymbalta Cap) 60 mg QAM PO 08/28/17 08:00 09/27/17 08:59 09/05/17 07:42 60 MG Gabapentin (Neurontin Cap) 400 mg TID PO 08/28/17 08:00 09/27/17 08:59 09/05/17 13:13 400 MG Gabapentin (Neurontin Tab) 600 mg TID PO 08/28/17 08:00 09/27/17 08:59 09/05/17 13:13 600 MG Miscellaneous Information (Consult Glycemic Management Pharmacy) 1 ea UD PRN N/A 08/28/17 07:42 09/27/17 07:41 Glucose (Glucose 40% Gel) 15-30 GRAMS 15 GRAMS... UD PRN PO 08/28/17 07:45 09/27/17 07:44 Glucose (Glucose Chew Tab) 4-8 Tablets 4 Tabl... UD PRN PO 08/28/17 07:45 09/27/17 07:44 Dextrose (Dextrose 50% 50ML Syringe) 25-50ML OF 50% DW IV FOR... UD PRN IV 08/28/17 07:45 09/27/17 07:44 Glucagon (Glucagon Inj) 1 mg UD PRN SQ 08/28/17 07:45 09/27/17 07:44 Insulin Aspart (novoLOG ASPART) SLIDING SCALE ACHS SC 08/28/17 09:00 09/27/17 08:59 09/05/17 18:06 21 UNITS Ceftriaxone Sodium 2000 mg/ Dextrose 70 ml @ 140 mls/hr DAILY@1800 IV 09/01/17 18:00 09/11/17 17:59 09/05/17 17:56 140 MLS/HR Tramadol HCl (Ultram Tab) 50 mg Q4H PRN PO 09/02/17 09:45 09/28/17 19:59 09/05/17 14:04 50 MG Menthol (Nice Genevieve) 1 genevieve PRN PRN PO 09/02/17 14:00 10/02/17 13:59 09/03/17 19:55 24 GENEVIEVE Acetaminophen (Tylenol Tab) 650 mg Q4H PRN PO 09/02/17 15:00 10/02/17 14:59 Senna/Docusate Sodium (Senokot S Tab) 1 tab QAM PO 09/03/17 08:00 10/03/17 07:59 09/05/17 07:42 1 TAB Heparin Sodium (Porcine) (Heparin Sq 5000 Unit/0.5ml) 5,000 unit Q8 SQ 09/02/17 22:00 10/02/17 21:59 09/05/17 13:13 5,000 UNIT Insulin Glargine (Lantus Vial) 50 units Q12 SC 09/03/17 21:00 10/03/17 20:59 09/05/17 09:20 50 UNITS Phenol (Chloraseptic 1.4% [place]) 1 sprays TID PRN MT 09/03/17 19:45 10/03/17 19:44 09/05/17 07:43 1 SPRAYS Heparin Sodium (Porcine) (Heparin 10 Unit/ ml 5 ml Flush) 5 ml PRN PRN FLUSH 09/04/17 18:30 10/04/17 18:29
[2017-09-05] MEDS: COUGH DROP (SUGAR FREE) LOZ 24 LOZ/1 BOX PO PRN (20:01)
[2017-09-05] MEDS: ARIPIprazole TAB 10 MG TAB PO SCH (20:29)
[2017-09-05 22:51] VITALS: BP 106/66; PULSE 98; TEMP 36.6; O2SAT 95
[2017-09-06] MEDS: HEPARIN SOD 5000 UNIT/0.5 ML CARP SQ SCH ×3 (06:17→21:30)
[2017-09-06 07:22] VITALS: BP 111/71; PULSE 96; TEMP 36.8; O2SAT 98
[2017-09-06] MEDS: ATORVASTATIN 10 MG TAB PO SCH (08:09)
[2017-09-06] MEDS: ACETAMINOPHEN 325 MG TAB PO PRN ×2 (08:09→12:43)
[2017-09-06] MEDS: GABAPENTIN 400 MG CAP PO SCH ×3 (08:09→19:41)
[2017-09-06] MEDS: DULOXETINE HCL 60 MG CAP PO SCH (08:09)
[2017-09-06] MEDS: DOCUSATE SODIUM/SENNA 50/8.6MG TAB PO SCH (08:09)
[2017-09-06] MEDS: ASPIRIN 81 MG ECTAB PO SCH (08:09)
[2017-09-06 08:10] VITALS: O2SAT 98
[2017-09-06] MEDS: GABAPENTIN 600 MG TAB PO SCH ×3 (08:10→19:41)
--- NOTE | 2017-09-06 08:18 | Orthopedic Progress Note ---
Orthopedic Progress Note Date of Service Sep 06, 2017. Subjective Post OP Day: 5 Reports: feeling well, pain controlled w PO medications, Denies: complaints Objective calves soft nontender, N/V intact, capillary refill less than 2 sec., incision C /D/I, A&O x3, toes mobile Left foot: Minimal to no erythema at the dorsal forefoot near the 3rd and 4th IMS incisions. Incisions are well approximated. Maceration between the 3rd/4th and 4th/5th toes--adaptic may be attributing to the maceration. No purulence noted. No fluctuance. Improvement of the plantar forefoot tenderness compared to exam 3 days ago. Date Time Temp Pulse Resp B/P (MAP) Pulse Ox O2 Delivery O2 Flow Rate FiO2 09/06/17 07:22 36.8 96 20 111/71 (84) 98 Room Air 09/06/17 00:08 Room Air 09/05/17 22:51 36.6 98 20 106/66 (79) 95 Room Air 09/05/17 20:02 Room Air 09/05/17 14:42 36.9 101 20 122/70 (87) 96 Room Air Assessment & Plan Assessment: POD #5 s/p 1. Left foot incision and drainage third intermetatarsal space abscess. 2. Incision and drainage fourth intermetatarsal space abscess. 3. Debridement of third toe proximal interphalangeal joint ulcer including skin, subcutaneous tissue, fascia and subcutaneous fat Cx showing MSSA Plan: PT/OT WBAT on heel only with walker or crutches antibx as per Med/ID service transitioned to Ceftr 2g IV daily Day 4 will need at least 6 weeks of IV antibiotics tentative last day of IV Ceftri 10/12 PICC line ordered will need ID follow, weekly CBC, CMP appreciate Dr. Pino's recommendations Dressing change completed. Aquacel Ag cut into small strips and placed in the 3rd and 4th webspaces and intermetatarsal spaces. Gauze, ABD, Kerlix wrap and BLAKE bandage applied. Recommend daily dressing changes with Aquacel Ag. Ortho to sign off at this time. F/U with Dr. Shafer's clinic in 1 week.
--- NOTE | 2017-09-06 08:19 | Consultant Recommendations ---
Inspection Clerk Recommendations Date of Service Sep 06, 2017. Inspection Clerk Recommendations ACTIVITY RECOMMENDATIONS: Limitations: Heel weight bearing only if able to tolerate. SPECIAL CARE INSTRUCTIONS: * Some drainage onto the dressing is normal and is no cause for alarm. * Some swelling is natural especially after walking. * When resting, keep your foot elevated above the level of your heart. * Call [facility] if you notice: -Increased drainage -Fever over 101 degrees F -Severe constant pain * Recommend daily dressing changes with Aquacel Ag cut into small strips to cover the incisions and the 3rd/4th webspaces. * IV antibiotics per Infectious Disease recommendation. BANDAGE: * Leave bandage/cast in place unless otherwise directed. * Keep bandage/cast dry at all times. PIN CARE: * Leave pins alone. * If pins come loose or fall out, notify physician. FOLLOW UP VISIT WITH DR. CAMP If appointment is not already scheduled: Please call [facility] after you get home today to schedule a follow-up appointment for in [address] Camp at .
[2017-09-06] MEDS: INSULIN ASPART 100 UNITS/ML 3 ML PEN SC SCH ×4 (09:09→21:29)
[2017-09-06] MEDS: INSULIN GLARGINE SC SCH ×2 (09:10→21:29)
--- NOTE | 2017-09-06 10:02 | Pharmacy Progress Note ---
Glycemic Control Progress Note Date of Service Sep 06, 2017. Scope Glycemic Pharmacist consulted for glycemic control to write orders per [facility] inpatient glycemic control protocol. Objective Accuchecks BSG (last 24hrs): Test 09/05/17 11:36 09/05/17 16:33 09/05/17 20:09 09/06/17 06:18 Bedside Glucose 187 mg/dl (70-99) 125 mg/dl (70-99) 192 mg/dl (70-99) 174 mg/dl (70-99) Test 09/06/17 07:36 Bedside Glucose 176 mg/dl (70-99) Recent Pertinent Medications The patient is currently receiving: * Basal insulin: Lantus 50 units every 12 hours * Correctional Insulin: Novolog Correction per scale ACHS Goal Range: Low 110 mg/dL - High 150 mg/dL Correction Factor: 10 mg/dL/unit * Prandial insulin: Per carb ratio of 1 unit per 2.5 grams CHO consumed Outpatient Anti-Diabetic Meds EXTREMELY NONCOMPLIANT Assessment & Plan ASSESSMENT: * See progress note from 09/05/17 for more background info, in short: * Pt receiving SQ basal bolus insulin regimen for hyperglycemia secondary to baseline DM (outpatient regimen on hold), infection (cellulitis currently on Rocephin), POD #5 for I&D plus debridement of foot. * Patient is currently receiving an average of ~190 units of insulin per day * 100 units of basal insulin * 86 units of prandial/correctional insulin * BSGs ranging 125 - 192 mg/dl over the past 24hrs * Changes needed to insulin regimen: * AM Fasting BSG = 174 mg/dl. This is above goal range for patient based on inpatient targets and co-morbidities. Over the past few days, the patient's fasting blood sugar has been 140 mg/dL, 154 mg/dL, and 174 mg/dL indicating that the patient's basal is not covered. Increased basal by 10% to 55 units twice daily. * Post-prandial BSGs appear to not been controlled. It appears that the patient 's correction factor provides adequate correction but the carbohydrate ratio is not sufficient. Whenever the patient is within goal, the subsequent blood sugar is high. Tightened carbohydrate ratio slightly. * Total daily dose = ~200 units. Adjusted adequately to reflect this. PLAN FOR INPATIENT GLYCEMIC CONTROL: * INCREASING Lantus to 55 units SQ BID * Continuing correction factor of 10 mg/dl/unit * TIGHTEN carb ratio to 1 unit per 2 grams CHO consumed * Continuing goal range to Low 110 mg/dL - High 140 mg/dL RECOMMENDATIONS FOR DISCHARGE: * See note from 09/05/17 Thank you.
--- NOTE | 2017-09-06 10:29 | Progress Note ---
Subjective Date of Service: Sep 06, 2017. Subjective Pt evaluation today including: conversation w/ patient, physical exam, chart review, lab review pt seen in followup, states no more OR planned. still with pain in foot after dressing change. Denies f/c. tolerating abx. blood cultures negative. All wound cultures with MSSA, remains on ctx. picc line placed. no abd pain no n/v/d. all remaining ros reviewed and are negative. Problem List Medical Problems: (1) Abdominal pain Status: Acute (2) Abdominal pain Status: Acute (3) Acute exacerbation of chronic low back pain Status: Acute (4) Acute exacerbation of chronic low back pain Status: Acute (5) Acute renal failure Status: Acute (6) Acute renal failure Status: Acute (7) Back pain Status: Acute (8) Back pain Status: Acute (9) Bilateral cellulitis of lower leg Status: Acute (10) Bilateral leg pain Status: Acute (11) Cellulitis of left elbow Status: Acute (12) Cellulitis of left foot Status: Acute (13) Cellulitis of left foot Status: Acute (14) Chest pain Status: Acute (15) Chest pain Status: Acute (16) Chest pain Status: Acute (17) Chest wall pain Status: Acute (18) Chronic abdominal pain Status: Acute (19) Chronic low back pain Status: Acute (20) Contusion of left leg Status: Acute (21) Cough Status: Acute (22) Dehydration Status: Acute (23) Dehydration Status: Acute (24) Dehydration Status: Acute (25) Dehydration Status: Acute (26) Depression Status: Chronic (27) Diabetes Status: Acute (28) DM type 2 (diabetes mellitus, type 2) Status: Chronic (29) Elevated d-dimer Status: Acute (30) Encounter for smoking cessation counseling Status: Acute (31) Fall in home Status: Acute (32) Generalized abdominal pain Status: Acute (33) History of peripheral neuropathy Status: Acute (34) Hyperglycemia Status: Acute (35) Hypotension Status: Acute (36) Intractable low back pain Status: Acute (37) Left arm pain Status: Acute (38) Left elbow pain Status: Acute (39) Left sided chest pain Status: Acute (40) Left sided chest pain Status: Acute (41) Left sided chest pain Status: Acute (42) Left sided numbness Status: Acute (43) [place] toxicity Status: Acute (44) assisted current use of anticoagulant therapy Status: Acute (45) Low back pain Status: Acute (46) Lower abdominal pain Status: Acute (47) Lower back pain Status: Acute (48) Lumbar contusion Status: Acute (49) Migraine Status: Acute (50) Nausea & vomiting Status: Acute (51) Nausea and vomiting Status: Acute (52) Nausea vomiting and diarrhea Status: Acute (53) Nicotine addiction Status: Acute (54) Pulmonary embolus Status: Acute (55) Renal insufficiency Status: Acute (56) Right ankle pain Status: Acute (57) Right elbow pain Status: Acute (58) Right lower quadrant abdominal pain Status: Acute (59) Suicidal ideation Status: Acute (60) Suicidal ideation Status: Acute (61) Suicidal ideation Status: Acute (62) Suicidal thoughts Status: Acute (63) Syncope Status: Acute (64) Tachycardia Status: Acute (65) Tachycardia Status: Acute (66) Vomiting Status: Acute (67) Weakness Status: Acute Objective Vital Signs Date Time Temp Pulse Resp B/P (MAP) Pulse Ox O2 Delivery O2 Flow Rate FiO2 09/06/17 07:22 36.8 96 20 111/71 (84) 98 Room Air 09/06/17 00:08 Room Air 09/05/17 22:51 36.6 98 20 106/66 (79) 95 Room Air 09/05/17 20:02 Room Air 09/05/17 14:42 36.9 101 20 122/70 (87) 96 Room Air Physical Exam General Appearance: WD/WN, no apparent distress Eyes: normal inspection, EOMI Neck: supple Respiratory/Chest: lungs clear, normal breath sounds, no respiratory distress Cardiovascular: regular rate, rhythm, no edema Abdomen: normal bowel sounds, non tender, soft Extremities: non-tender, no pedal edema, + pertinent finding (dressing c/d/i, no drainage) Neurologic/Psychiatric: alert, oriented x 3 Skin: normal color, no rash Laboratory Results Item Value Date Time Gram Stain - Final Resulted 09/01/171835 Drainage-Deep Foot Left Gram Stain - Final Complete 08/30/17 0920 Abscess Toe Left 3 Gram Stain - Final Resulted 09/01/171835 Drainage-Deep Foot Left Gram Stain - Final Complete 08/28/17 0510 Skin Toe Blood Culture - Final Complete 08/28/17 0513 Blood NO GROWTH Blood Culture - Final Complete 08/28/17 0450 Blood NO GROWTH Last 24 Hours Test 09/05/17 11:36 09/05/17 16:33 09/05/17 20:09 09/06/17 06:18 Bedside Glucose 187 mg/dl 125 mg/dl 192 mg/dl 174 mg/dl Test 09/06/17 07:36 Bedside Glucose 176 mg/dl Assessment and Plan (1) Foot abscess Assessment & Plan: continue rocephin 2g IV Q24, stop 10/12 will need weekly labs for d/c snf ok from ID standpoint
[2017-09-06] MEDS: TRAMADOL HCL 50 MG TAB PO PRN ×2 (13:54→21:37)
[2017-09-06 16:00] VITALS: O2SAT 95
[2017-09-06 16:16] VITALS: BP 121/73; PULSE 95; TEMP 36.6; O2SAT 95
[2017-09-06] MEDS: CEFTRIAXONE SOD INJ 2000 MG in DEXTROSE 5% 50ML IV SCH (18:20)
--- NOTE | 2017-09-06 19:44 | Progress Note ---
Medicine Progress Note Date & Time of Visit: Sep 06, 2017 at 19:42. Subjective seen resting in bed, comfortable eating lunch left foot pain increased after changing dressing, improved denies fever/chills, nausea no other symptoms Objective Last 8 Hrs Date Time Temp Pulse Resp B/P (MAP) Pulse Ox O2 Delivery O2 Flow Rate FiO2 09/06/17 16:16 36.6 95 18 121/73 (89) 95 Room Air 09/06/17 16:00 95 Room Air Physical Exam: General- oriented x 3, not in distress, speaks in sentences with no effort Neck- no JVD Lungs- clear breath sounds bilaterally, no rales, no wheezes Heart- regular rhythm; no murmur, normal rate Abdomen- normal bowel sounds, soft, nontender Extremities- left foot (+) dressing in place, toes visible- no cyanosis, no active bleeding no pretibial edema, no calf tenderness; peripheral pulses intact Neuro- alert, oriented x 3; no gross focal deficits Skin- warm & dry Laboratory Results: Last 24 Hours Test 09/05/17 20:09 09/06/17 06:18 09/06/17 07:36 09/06/17 11:26 Bedside Glucose 192 mg/dl 174 mg/dl 176 mg/dl 153 mg/dl Test 09/06/17 16:51 Bedside Glucose 147 mg/dl Assessment & Plan SEPSIS SECONDARY TO LEFT FOOT ABSCESS, MSSA Presented with elevated WBC, Tachycardia with elevated lactic acid Blood Cultures:No growth to date Wound Culture x 2: Staph. auerus: tejeda sensitive Left Foot Abscess culture: (+) Staph, pansensitive -- MRI Foot: IMPRESSION: 1. Moderate cellulitis of the forefoot with 3.2 x 3.0 x 2.7 cm peripherally enhancing abscess surrounding the third proximal phalanx extending to the dorsal skin surface. Adjacent 6 x 4 mm focus of decreased T1 and T2 signal is suspicious for a foreign body or focus of air within the wound. Correlate with clinical exam. 2. Subacute appearing fracture of the fourth proximal phalanx with moderate associated bone marrow edema and periosteal reaction. 3. Mild bone marrow edema of the third proximal phalanx suggests reactive change without definite evidence of osteomyelitis at this time. -- s/p I&D by Ortho 09/02 heel weight bearing as per Ortho PT/OT -- given Vanco + Zosyn x 4 days, transitioned to Ceftr 2g IV daily Day 6 will need at least 6 weeks of IV antibiotics tentative last day of IV Ceftri 10/12 PICC line placed will need ID follow, weekly CBC, CMP appreciate Dr. Pino's recommendations -- Ortho changing dressing while inpatient will need Ortho ff up Uncontrolled Diabetes Mellitus Type 2 Presented with BS above 500 Last A1c: 9.2 on 07/27/17 Continue Insulin therapy continue monitor Pharmacy consult for glycemic management Hyponatremia Secondary to hyperglycemia Resolved Continue monitor HTN On lisinopril 10 mg monitor trend HLP: Continue Lipitor Depression: continue home meds Tobacco use disorder: Nicotine patch H/O Gastroparesis/IBS stable DVT Px: heparin SQ Code Status: Full Code Disposition: PT/OT IV Ceftri x 6 weeks SNF referral placed, awaiting approval Current Inpatient Medications: Current Inpatient Medications Medications (Trade) Dose Ordered Sig/Mario Alberto Route Start Time Stop Time Status Last Admin Dose Admin Aripiprazole (Abilify Tab) 10 mg HS PO 08/28/17 21:00 09/27/17 20:59 09/05/17 20:29 10 MG Aspirin (Ecotrin Tab) 81 mg DAILY PO 08/28/17 08:00 09/27/17 08:59 09/06/17 08:09 81 MG Atorvastatin Calcium (Lipitor Tab) 10 mg DAILY PO 08/28/17 08:00 09/27/17 08:59 09/06/17 08:09 10 MG Duloxetine HCl (Cymbalta Cap) 60 mg QAM PO 08/28/17 08:00 09/27/17 08:59 09/06/17 08:09 60 MG Gabapentin (Neurontin Cap) 400 mg TID PO 08/28/17 08:00 09/27/17 08:59 09/06/17 13:55 400 MG Gabapentin (Neurontin Tab) 600 mg TID PO 08/28/17 08:00 09/27/17 08:59 09/06/17 13:55 600 MG Miscellaneous Information (Consult Glycemic Management Pharmacy) 1 ea UD PRN N/A 08/28/17 07:42 09/27/17 07:41 Glucose (Glucose 40% Gel) 15-30 GRAMS 15 GRAMS... UD PRN PO 08/28/17 07:45 09/27/17 07:44 Glucose (Glucose Chew Tab) 4-8 Tablets 4 Tabl... UD PRN PO 08/28/17 07:45 09/27/17 07:44 Dextrose (Dextrose 50% 50ML Syringe) 25-50ML OF 50% DW IV FOR... UD PRN IV 08/28/17 07:45 09/27/17 07:44 Glucagon (Glucagon Inj) 1 mg UD PRN SQ 08/28/17 07:45 09/27/17 07:44 Insulin Aspart (novoLOG ASPART) SLIDING SCALE ACHS SC 08/28/17 09:00 09/27/17 08:59 09/06/17 18:20 18 UNITS Ceftriaxone Sodium 2000 mg/ Dextrose 70 ml @ 140 mls/hr DAILY@1800 IV 09/01/17 18:00 09/11/17 17:59 09/06/17 18:20 140 MLS/HR Tramadol HCl (Ultram Tab) 50 mg Q4H PRN PO 09/02/17 09:45 09/28/17 19:59 09/06/17 13:54 50 MG Menthol (Nice Genevieve) 1 genevieve PRN PRN PO 09/02/17 14:00 10/02/17 13:59 09/05/17 20:01 1 GENEVIEVE Acetaminophen (Tylenol Tab) 650 mg Q4H PRN PO 09/02/17 15:00 10/02/17 14:59 09/06/17 12:43 650 MG Senna/Docusate Sodium (Senokot S Tab) 1 tab QAM PO 09/03/17 08:00 10/03/17 07:59 09/06/17 08:09 1 TAB Heparin Sodium (Porcine) (Heparin Sq 5000 Unit/0.5ml) 5,000 unit Q8 SQ 09/02/17 22:00 10/02/17 21:59 09/06/17 13:59 5,000 UNIT Phenol (Chloraseptic 1.4% [place]) 1 sprays TID PRN MT 09/03/17 19:45 10/03/17 19:44 09/05/17 20:02 1 SPRAYS Heparin Sodium (Porcine) (Heparin 10 Unit/ ml 5 ml Flush) 5 ml PRN PRN FLUSH 09/04/17 18:30 10/04/17 18:29 Insulin Glargine (Lantus Vial) 55 units Q12 SC 09/06/17 09:00 10/06/17 08:59 09/06/17 09:10 55 UNITS
[2017-09-06] MEDS: ARIPIprazole TAB 10 MG TAB PO SCH (21:32)
[2017-09-06] MEDS: CHLORASEPTIC 1.4% SOLN 180 ML BTL MT PRN (21:37)
[2017-09-06 22:58] VITALS: BP 133/82; PULSE 93; TEMP 36.7; O2SAT 94
[2017-09-07] MEDS: HEPARIN SOD 5000 UNIT/0.5 ML CARP SQ SCH ×3 (05:39→21:34)
[2017-09-07 07:19] VITALS: BP 125/76; PULSE 100; TEMP 36.6; O2SAT 93
[2017-09-07] MEDS: GABAPENTIN 400 MG CAP PO SCH ×3 (07:39→21:37)
[2017-09-07] MEDS: ASPIRIN 81 MG ECTAB PO SCH (07:39)
[2017-09-07] MEDS: ATORVASTATIN 10 MG TAB PO SCH (07:39)
[2017-09-07] MEDS: ACETAMINOPHEN 325 MG TAB PO PRN ×2 (07:39→13:50)
[2017-09-07] MEDS: DULOXETINE HCL 60 MG CAP PO SCH (07:39)
[2017-09-07] MEDS: GABAPENTIN 600 MG TAB PO SCH ×3 (07:40→21:36)
[2017-09-07] MEDS: DOCUSATE SODIUM/SENNA 50/8.6MG TAB PO SCH (07:40)
[2017-09-07 08:00] VITALS: O2SAT 93
[2017-09-07] MEDS: TRAMADOL HCL 50 MG TAB PO PRN ×2 (09:08→21:39)
[2017-09-07] MEDS: INSULIN ASPART 100 UNITS/ML 3 ML PEN SC SCH ×4 (09:24→21:33)
[2017-09-07] MEDS: INSULIN GLARGINE SC SCH ×2 (09:26→21:33)
[2017-09-07] MEDS: COUGH DROP (SUGAR FREE) LOZ 24 LOZ/1 BOX PO PRN (13:59)
[2017-09-07 15:22] VITALS: BP 145/82; PULSE 103; TEMP 36.8; O2SAT 94
[2017-09-07 15:30] VITALS: O2SAT 94
--- NOTE | 2017-09-07 16:01 | Progress Note ---
Internal Med Progress Note Date of Service: Sep 07, 2017. Provider Documentation: SUBJECTIVE: Resting comfortably says in the nights he is having night sweats denies any fevers or chills no sob ambulating with walker and on heels on left foot awaiting placement OBJECTIVE: Vital Signs-as noted below Exam: General-alert and oriented. Not in distress ENT-Normal hearing Neck-no neck masses Lungs-CTA b/l no wheezing or crackles Heart-S1 and S2 heard. Regular rate and rhythm, no murmurs Abdomen-Soft Bowel sounds present no tenderness present no distension Extremities-no edema no erythema. Left foot in dressing Neuro-alert and awake moves extremities Lab data as noted below. ASSESSMENT & PLAN: SEPSIS SECONDARY TO LEFT FOOT ABSCESS, MSSA Presented with elevated WBC, Tachycardia with elevated lactic acid Blood Cultures:No growth to date Wound Culture x 2: Staph. auerus: tejeda sensitive Left Foot Abscess culture: (+) Staph, pansensitive MRI Foot: IMPRESSION: 1. Moderate cellulitis of the forefoot with 3.2 x 3.0 x 2.7 cm peripherally enhancing abscess surrounding the third proximal phalanx extending to the dorsal skin surface. Adjacent 6 x 4 mm focus of decreased T1 and T2 signal is suspicious for a foreign body or focus of air within the wound. Correlate with clinical exam. 2. Subacute appearing fracture of the fourth proximal phalanx with moderate associated bone marrow edema and periosteal reaction. 3. Mild bone marrow edema of the third proximal phalanx suggests reactive change without definite evidence of osteomyelitis at this time. s/p I&D by Ortho 09/02 heel weight bearing as per Ortho PT/OT Currently on iv Rocephin 2gm and ID recommends total 6 weeks with tentative stop date 10/12 cbc and cmp weekly while on Rocephin s/p picc line f/u with ortho plan for SNF in am. Uncontrolled Diabetes Mellitus Type 2 Presented with BS above 500 Last A1c: 9.2 on 07/27/17 on insulin tx Pharmacy consult for glycemic management will monitor. Hyponatremia Secondary to hyperglycemia Resolved HTN On lisinopril 10 mg will monitor. HLP: On Lipitor Depression: stable on home meds Tobacco use disorder: Nicotine patch H/O Gastroparesis/IBS stable DVT Px: heparin SQ Code Status: Full Code Disposition: PT/OT IV Ceftri x 6 weeks plan for snf in am Vital Signs: Date Time Temp Pulse Resp B/P (MAP) Pulse Ox O2 Delivery O2 Flow Rate FiO2 09/07/17 15:22 36.8 103 16 145/82 (103) 94 Room Air 09/07/17 08:00 93 Room Air 09/07/17 07:19 36.6 100 20 125/76 (92) 93 Room Air 09/06/17 23:20 Room Air 09/06/17 22:58 36.7 93 18 133/82 (99) 94 Room Air 09/06/17 16:16 36.6 95 18 121/73 (89) 95 Room Air 09/06/17 16:00 95 Room Air Lab Results: Results Past 24 Hours Test 09/06/17 16:51 09/06/17 20:36 09/07/17 07:36 09/07/17 11:34 Range/Units Bedside Glucose 147 148 147 156 70-99 mg/dl
[2017-09-07] MEDS: CEFTRIAXONE SOD INJ 2000 MG in DEXTROSE 5% 50ML IV SCH (17:52)
[2017-09-07] MEDS: ARIPIprazole TAB 10 MG TAB PO SCH (21:36)
[2017-09-08 00:04] VITALS: BP 127/83; PULSE 96; TEMP 36.6; O2SAT 95
[2017-09-08] MEDS: HEPARIN SOD 5000 UNIT/0.5 ML CARP SQ SCH (06:30)
[2017-09-08 07:48] VITALS: BP 116/81; PULSE 93; TEMP 36.5; O2SAT 93
[2017-09-08] MEDS: GABAPENTIN 600 MG TAB PO SCH (07:55)
[2017-09-08] MEDS: ATORVASTATIN 10 MG TAB PO SCH (07:55)
[2017-09-08] MEDS: DOCUSATE SODIUM/SENNA 50/8.6MG TAB PO SCH (07:55)
[2017-09-08] MEDS: GABAPENTIN 400 MG CAP PO SCH (07:56)
[2017-09-08] MEDS: DULOXETINE HCL 60 MG CAP PO SCH (07:56)
[2017-09-08] MEDS: ASPIRIN 81 MG ECTAB PO SCH (07:56)
[2017-09-08] MEDS: INSULIN ASPART 100 UNITS/ML 3 ML PEN SC SCH ×2 (08:31→12:26)
--- NOTE | 2017-09-08 08:49 | Pharmacy Progress Note ---
Glycemic Control Progress Note Date of Service Sep 08, 2017. Scope Glycemic Pharmacist consulted for glycemic control to write orders per [facility] inpatient glycemic control protocol. Objective Accuchecks BSG (last 24hrs): Test 09/07/17 11:34 09/07/17 16:19 09/07/17 20:43 Bedside Glucose 156 mg/dl (70-99) 147 mg/dl (70-99) 189 mg/dl (70-99) Recent Pertinent Medications The patient is currently receiving: * Basal insulin: Lantus 55 units every 12 hours * Correctional Insulin: Novolog Correction per scale ACHS Goal Range: Low 110 mg/dL - High 150 mg/dL Correction Factor: 10 mg/dL/unit * Prandial insulin: Per carb ratio of 1 unit per 2 grams CHO consumed Outpatient Anti-Diabetic Meds Lantus 38 units twice daily plus Novolog Assessment & Plan ASSESSMENT: * See progress note from 09/05/17 for more background info, in short: * Pt receiving SQ basal bolus insulin regimen for hyperglycemia secondary to baseline DM (outpatient regimen on hold), infection (cellulitis currently on Rocephin), POD #5 for I&D plus debridement of foot. * Patient is currently receiving an average of ~215 units of insulin per day * 110 units of basal insulin * 105 units of prandial/correctional insulin * BSGs ranging 147 - 189 mg/dl over the past 24hrs * Changes needed to insulin regimen: * AM Fasting BSG = 174 mg/dl. This is above goal range for patient based on inpatient targets and co-morbidities. Over the past few days, the patient's fasting blood sugar has been 174 mg/dL and 147 mg/dL indicating that the patient 's basal is not covered. Increased basal by 10% to 60 units twice daily. * Post-prandial BSGs appear to be relatively well-controlled. Patient is slightly basal heavy currently. Once effects of basal increase have been seen .... it may be appropriate to tighten carbohydrate ratio to 1.5 units per gram of carbohydrate eaten. * Total daily dose = ~220 units. Adjusted adequately to reflect this. PLAN FOR INPATIENT GLYCEMIC CONTROL: * INCREASING Lantus to 60 units SQ BID * Continuing correction factor of 10 mg/dl/unit * Continuing carb ratio to 1 unit per 2 grams CHO consumed * Continuing goal range to Low 110 mg/dL - High 140 mg/dL RECOMMENDATIONS FOR DISCHARGE: * See note from 09/05/17 Thank you.
[2017-09-08] MEDS ORDERED: INSULIN GLARGINE SC SCH (09:00)
[2017-09-08] MEDS: TRAMADOL HCL 50 MG TAB PO PRN (09:23)
--- NOTE | 2017-09-08 12:07 | Progress Note ---
Internal Med Progress Note Date of Service: Sep 08, 2017. Provider Documentation: SUBJECTIVE: Resting comfortably no night sweats last night afebrile says has some itching around picc line no nausea no sob ok for discharge OBJECTIVE: Vital Signs-as noted below Exam: General-alert and oriented. Not in distress ENT-Normal hearing Neck-no neck masses Lungs-CTA b/l no wheezing or crackles Heart-S1 and S2 heard. Regular rate and rhythm, no murmurs Abdomen-Soft Bowel sounds present no tenderness present no distension Extremities-no edema no erythema. Left foot in dressing Neuro-alert and awake moves extremities Lab data as noted below. ASSESSMENT & PLAN: SEPSIS SECONDARY TO LEFT FOOT ABSCESS, MSSA Presented with elevated WBC, Tachycardia with elevated lactic acid Blood Cultures:No growth to date Wound Culture x 2: Staph. auerus: tejeda sensitive Left Foot Abscess culture: (+) Staph, pansensitive MRI Foot: IMPRESSION: 1. Moderate cellulitis of the forefoot with 3.2 x 3.0 x 2.7 cm peripherally enhancing abscess surrounding the third proximal phalanx extending to the dorsal skin surface. Adjacent 6 x 4 mm focus of decreased T1 and T2 signal is suspicious for a foreign body or focus of air within the wound. Correlate with clinical exam. 2. Subacute appearing fracture of the fourth proximal phalanx with moderate associated bone marrow edema and periosteal reaction. 3. Mild bone marrow edema of the third proximal phalanx suggests reactive change without definite evidence of osteomyelitis at this time. s/p I&D by Ortho 09/02 heel weight bearing as per Ortho PT/OT Currently on iv Rocephin 2gm and ID recommends total 6 weeks with tentative stop date 10/12 cbc and cmp weekly while on Rocephin s/p picc line f/u with ortho and ID plan for SNF today Uncontrolled Diabetes Mellitus Type 2 Presented with BS above 500 Last A1c: 9.2 on 07/27/17 on insulin tx Pharmacy consult for glycemic management will discharge on Lantus 50units BI and NovoLog 28units with meals as per pharmacy recommendations for tight control and help with wound healing Hyponatremia Secondary to hyperglycemia Resolved HTN On lisinopril 10 mg will monitor. HLP: On Lipitor Depression: stable on home meds Tobacco use disorder: Nicotine patch H/O Gastroparesis/IBS stable DVT Px: heparin SQ Code Status: Full Code Disposition: Plan for SNF today Vital Signs: Date Time Temp Pulse Resp B/P (MAP) Pulse Ox O2 Delivery O2 Flow Rate FiO2 09/08/17 08:30 Room Air 09/08/17 07:48 36.5 93 18 116/81 (93) 93 09/08/17 00:04 36.6 96 20 127/83 (98) 95 Room Air 09/08/17 00:00 Room Air 09/07/17 15:30 94 Room Air 09/07/17 15:22 36.8 103 16 145/82 (103) 94 Room Air Lab Results: Results Past 24 Hours Test 09/07/17 16:19 09/07/17 20:43 Range/Units Bedside Glucose 147 189 70-99 mg/dl
[2017-09-08] MEDS ORDERED: CEFT1INJ6 IV (12:12)
[2017-09-08] MEDS ORDERED: LCTX PO (12:12)
[2017-09-08] MEDS ORDERED: NVLGI/PEN SC (12:12)
[2017-09-08] MEDS ORDERED: INSDGIPEN SC (12:12)
[2017-09-08] MEDS ORDERED: ULT50 PO (12:13)
--- NOTE | 2017-09-08 12:19 | Discharge Instructions ---
Discharge Instructions Date of Service Sep 08, 2017. Admission Reason for Admission: Cellulitis Of Left Foot, Hyperglycemia Discharge Discharge Diagnosis / Problem: cellulitis of left foot and abscess s/p I and D. hyperglycemia Discharge Goals Goal(s): Decrease discomfort, Improve function Activity Recommendations Activity Level: Up Ad Yajaira Therapies: Physical Therapy, Occupational Therapy Weightbearing Status: Left weightbearing (as tolerated) . Additional Information Patient informed of condition: Yes Advance Directives: Yes DNR: No Level of Care: Skilled Communicable Disease: No Prognosis: Stable Shearer Catheter: No Instructions / Follow-Up Instructions / Follow-Up FOLLOWUP WITH FAMILY DOCTOR IN ONE WEEK FOLLOWUP WITH WOUND CLINIC AND INFECTIOUS DISEASE IN 2-3 WEEKS FOLLOWUP WITH ORTHOPEDICS IN ONE WEEK. PLEASE ALSO FOLLOW DISCHARGE INSTRUCTIONS GIVEN BY ORTHOPEDICS. CLOSE FOLLOW BLOOD SUGARS AND ADJUST INSULIN REGIMEN. LAB: CBC AND CMP WEEKLY WHILE ON IV ROCEPHIN. Manager Nursing Recommendations Date of Service Sep 06, 2017. Manager Nursing Recommendations ACTIVITY RECOMMENDATIONS: Limitations: Heel weight bearing only if able to tolerate. SPECIAL CARE INSTRUCTIONS: * Some drainage onto the dressing is normal and is no cause for alarm. * Some swelling is natural especially after walking. * When resting, keep your foot elevated above the level of your heart. * Call [facility] if you notice: -Increased drainage -Fever over 101 degrees F -Severe constant pain * Recommend daily dressing changes with Aquacel Ag cut into small strips to cover the incisions and the 3rd/4th webspaces. * IV antibiotics per Infectious Disease recommendation. BANDAGE: * Leave bandage/cast in place unless otherwise directed. * Keep bandage/cast dry at all times. PIN CARE: * Leave pins alone. * If pins come loose or fall out, notify physician. FOLLOW UP VISIT WITH DR. CAMP If appointment is not already scheduled: Please call [facility] after you get home today to schedule a follow-up appointment for in [address] Camp at . Current Hospital Diet Patient's current hospital diet: Diabetes Type 2 Diet Discharge Diet Recommended Diet: Diabetes Type 2 Diet Procedures Procedures Performed: 1. Left foot Incision and Drainage Abscess Third Intermetatarsal Space 2. Left foot Incision and Drainage Abscess Fourth Intermetatarsal Space 3. Debridement Third Toe Ulcer Pending Studies Studies pending at discharge: no Physician Orders On Transfer Special Precautions: FALL PRECAUTIONS IV Therapy: IV ROCEPHIN 2GM DAILY- LAST DOSE ON September. LAB: CBC AND CMP WEEKLY WHILE ON ROCEPHIN Vital Signs: EVERY 8HRS Laboratory Results Hemoglobin A1c Test 07/27/17 22:23 Range/Units Estimated Average Glucose 217 mg/dl Hemoglobin A1c 9.2 H 4.5-5.6 % Lipid Panel Test 07/29/17 07:27 Range/Units Triglycerides Level 263 H 0-150 mg/dl Cholesterol Level 207 H 0-200 mg/dl HDL Cholesterol 34 mg/dl Cholesterol/HDL Ratio 6.1 LDL Cholesterol, Calculated 120 mg/dl Medical Emergencies . Who to Call and When: Medical Emergencies: If at any time you feel your situation is an emergency, please call 911 immediately. . Non-Emergent Contact Non-Emergency issues call your: Primary Care Provider . . "Provider Documentation" section prepared by Hernan Busby. . Manager Nursing Recommendations Manager Nursing Recommendations: ACTIVITY RECOMMENDATIONS: Limitations: Heel weight bearing only if able to tolerate. SPECIAL CARE INSTRUCTIONS: * Some drainage onto the dressing is normal and is no cause for alarm. * Some swelling is natural especially after walking. * When resting, keep your foot elevated above the level of your heart. * Call [facility] if you notice: -Increased drainage -Fever over 101 degrees F -Severe constant pain * Recommend daily dressing changes with Aquacel Ag cut into small strips to cover the incisions and the 3rd/4th webspaces. * IV antibiotics per Infectious Disease recommendation. BANDAGE: * Leave bandage/cast in place unless otherwise directed. * Keep bandage/cast dry at all times. PIN CARE: * Leave pins alone. * If pins come loose or fall out, notify physician. FOLLOW UP VISIT WITH DR. CAMP If appointment is not already scheduled: Please call [facility] after you get home today to schedule a follow-up appointment for in [address] Camp at . Core Measure Problem Core Measures: None
--- NOTE | 2017-09-08 12:23 | Discharge Summary ---
Discharge Summary Date of Service Sep 08, 2017. Discharge Summary Admission Date: Aug 28, 2017 at 06:28 Discharge Date: Sep 08, 2017 Discharge Disposition: long term facility Principal Diagnosis: LEFT FOOT CELLULITIS AND ABSCESS S/P I AND D. Secondary Diagnoses/Problems: (1) Depression Status: Chronic (2) DM type 2 (diabetes mellitus, type 2) Status: Chronic (3) Gastroparesis Status: Chronic (4) HTN (hypertension) Status: Chronic (5) IBS (irritable bowel syndrome) Status: Chronic Procedures: CXR: 1. No acute cardiopulmonary disease. LEFT LOWER EXTREMITY MRI: 1. Moderate cellulitis of the forefoot with 3.2 x 3.0 x 2.7 cm peripherally enhancing abscess surrounding the third proximal phalanx extending to the dorsal skin surface. Adjacent 6 x 4 mm focus of decreased T1 and T2 signal is suspicious for a foreign body or focus of air within the wound. Correlate with clinical exam. 2. Subacute appearing fracture of the fourth proximal phalanx with moderate associated bone marrow edema and periosteal reaction. 3. Mild bone marrow edema of the third proximal phalanx suggests reactive change without definite evidence of osteomyelitis at this time. LEFT LOWER EXTREMITY US: No evidence of left lower extremity DVT. Consultations: ORTHOPEDICS ID PSYCHIATRY Medication Reconciliation New Medications: Ceftriaxone Sodium (Rocephin) 1 Gm Inj 2 GM IV DAILY for 35 Days, VIAL LAST DOSE ON September. Insulin Aspart (Novolog Flexpen) 100 Units/Ml Inj 28 UNITS SC AC, #1 2 Refills Insulin Glargine (Lantus Solostar) 100 Unit/Ml Inj 50 UNITS SC BID, #1 2 Refills Lactobacillus Acidophilus (Lactinex) Tab 2 TAB PO BID for 40 Days, TAB Continued Medications: Aripiprazole (Aripiprazole) 10 Mg Tab 10 MG PO HS Aspirin (Aspirin Ec) 81 Mg Tab 81 MG PO DAILY Atorvastatin (Lipitor) 10 Mg Tab 1 TAB PO DAILY, TAB 5 Refills Duloxetine Hcl (Cymbalta) 60 Mg Cap 60 MG PO QAM, CAP Gabapentin (Gabapentin) 400 Mg Cap 400 MG PO TID TAKE ONE 400 MG TABLET ALONG WITH ONE 600 MG TABLET TO EQUAL 1000 MG DOSE Gabapentin (Gabapentin) 600 Mg Tab 600 MG PO TID TAKE ONE 600 MG TABLET ALONG WITH ONE 400 MG TABLET TO EQUAL 1000 MG DOSE Lisinopril (Prinivil) 10 Mg Tab 1 TAB PO DAILY, TAB 1 Refill Nicotine Polacrilex (Nicorelief) 1 Piece Gum 1 PIECE PO DIRECTED PRN for NICOTINE CRAVINGS Polyethylene Glycol 3350 (Miralax) 1 Pow Pow 17 GM PO DAILY PRN for Constipation, #527 GM Tramadol HCl (Tramadol HCl) 50 Mg Tab 25 MG PO Q8 PRN for Pain, #14 (This prescription has been renewed) Discontinued Medications: Insulin Aspart (Novolog Flexpen) 100 Units/Ml Inj 1 DOSE SC PC COVERAGE DIRECTED BY SLIDING SCALE Insulin Glargine (Lantus Solostar) 100 Unit/Ml Inj 38 UNITS SC BID, PEN Admission Information HPI (per Admitting provider): 41 Yr male with PMH of IDDM, HTN, HLP, Tobacco use,Depression, non complaint present to the ER for hyperglycemia an left foot redness and tenderness. Pt was in the ER couple days ago for left foot pain. He was given a script for abx. Pt said that he started to take 2 abx yesterday, he cannot recall the name. Pt said that the left dorsal area of the left foot is very tender. He said that the pain is 6/10 and tender to touch. The ER physician said that the foot looks worst when he saw him couple days ago. redness is worsening and associated toes macerated and drainage. Pt denies any fever and chills. He said that he has been wearing his boot that seems to make it worst. Pt said that last night when he check his blood sugar, it read as error in the glucometer. He said that he has been drinking sweet ice tea. Pt said that because his glucometer was not able to check it, and he knew that he was high so he decided to come to the ER to check his BS. Pt denies any chest pain, palpitation, dizziness, blurry vision , fever, chills and SOB. Physical Exam (per Admitting): General Appearance: WD/WN, no apparent distress Head: normocephalic, atraumatic Eyes: PERRL, EOMI ENT: hearing grossly normal Neck: no JVD, trachea midline Respiratory/Chest: normal breath sounds, no respiratory distress, no accessory muscle use Cardiovascular: no JVD, no murmur, + tachycardia Abdomen/GI: normal bowel sounds, non tender, soft Back: no CVA tenderness Extremities/Musculoskelatal: no calf tenderness Neurologic/Psych: no motor/sensory deficits, alert, normal mood/affect, oriented x 3 Skin: normal color, warm/dry Hospital Course SEPSIS SECONDARY TO LEFT FOOT ABSCESS, MSSA Presented with elevated WBC, Tachycardia with elevated lactic acid Blood Cultures:No growth to date Wound Culture x 2: Staph. auerus: tejeda sensitive Left Foot Abscess culture: (+) Staph, pansensitive MRI Foot: IMPRESSION: 1. Moderate cellulitis of the forefoot with 3.2 x 3.0 x 2.7 cm peripherally enhancing abscess surrounding the third proximal phalanx extending to the dorsal skin surface. Adjacent 6 x 4 mm focus of decreased T1 and T2 signal is suspicious for a foreign body or focus of air within the wound. Correlate with clinical exam. 2. Subacute appearing fracture of the fourth proximal phalanx with moderate associated bone marrow edema and periosteal reaction. 3. Mild bone marrow edema of the third proximal phalanx suggests reactive change without definite evidence of osteomyelitis at this time. s/p I&D by Ortho 09/02 heel weight bearing as per Ortho PT/OT Currently on iv Rocephin 2gm and ID recommends total 6 weeks with tentative stop date 10/12 cbc and cmp weekly while on Rocephin s/p picc line f/u with ortho and ID plan for SNF today Uncontrolled Diabetes Mellitus Type 2 Presented with BS above 500 Last A1c: 9.2 on 07/27/17 on insulin tx Pharmacy consult for glycemic management will discharge on Lantus 50units BI and NovoLog 28units with meals as per pharmacy recommendations for tight control and help with wound healing Hyponatremia Secondary to hyperglycemia Resolved HTN On lisinopril 10 mg will monitor. HLP: On Lipitor Depression: stable on home meds Tobacco use disorder: Nicotine patch H/O Gastroparesis/IBS stable DVT Px: heparin SQ Code Status: Full Code Disposition: Plan for SNF today Total time spent on discharge = 40MINUTES This includes examination of the patient, discharge planning, medication reconciliation, and communication with other providers. Discharge Instructions Discharge Instructions Date of Service Sep 08, 2017. Admission Reason for Admission: Cellulitis Of Left Foot, Hyperglycemia Discharge Discharge Diagnosis / Problem: cellulitis of left foot and abscess s/p I and D. hyperglycemia Discharge Goals Goal(s): Decrease discomfort, Improve function Activity Recommendations Activity Level: Up Ad Yajaira Therapies: Physical Therapy, Occupational Therapy Weightbearing Status: Left weightbearing (as tolerated) . Additional Information Patient informed of condition: Yes Advance Directives: Yes DNR: No Level of Care: Skilled Communicable Disease: No Prognosis: Stable Shearer Catheter: No Instructions / Follow-Up Instructions / Follow-Up FOLLOWUP WITH FAMILY DOCTOR IN ONE WEEK FOLLOWUP WITH WOUND CLINIC AND INFECTIOUS DISEASE IN 2-3 WEEKS FOLLOWUP WITH ORTHOPEDICS IN ONE WEEK. PLEASE ALSO FOLLOW DISCHARGE INSTRUCTIONS GIVEN BY ORTHOPEDICS. CLOSE FOLLOW BLOOD SUGARS AND ADJUST INSULIN REGIMEN. LAB: CBC AND CMP WEEKLY WHILE ON IV ROCEPHIN. Food Service Steward Recommendations Date of Service Sep 06, 2017. Food Service Steward Recommendations ACTIVITY RECOMMENDATIONS: Limitations: Heel weight bearing only if able to tolerate. SPECIAL CARE INSTRUCTIONS: * Some drainage onto the dressing is normal and is no cause for alarm. * Some swelling is natural especially after walking. * When resting, keep your foot elevated above the level of your heart. * Call [facility] if you notice: -Increased drainage -Fever over 101 degrees F -Severe constant pain * Recommend daily dressing changes with Aquacel Ag cut into small strips to cover the incisions and the 3rd/4th webspaces. * IV antibiotics per Infectious Disease recommendation. BANDAGE: * Leave bandage/cast in place unless otherwise directed. * Keep bandage/cast dry at all times. PIN CARE: * Leave pins alone. * If pins come loose or fall out, notify physician. FOLLOW UP VISIT WITH DR. SHAFER If appointment is not already scheduled: Please call [facility] after you get home today to schedule a follow-up appointment for in [address] Shafer at . Current Hospital Diet Patient's current hospital diet: Diabetes Type 2 Diet Discharge Diet Recommended Diet: Diabetes Type 2 Diet Procedures Procedures Performed: 1. Left foot Incision and Drainage Abscess Third Intermetatarsal Space 2. Left foot Incision and Drainage Abscess Fourth Intermetatarsal Space 3. Debridement Third Toe Ulcer Pending Studies Studies pending at discharge: no Physician Orders On Transfer Special Precautions: FALL PRECAUTIONS IV Therapy: IV ROCEPHIN 2GM DAILY- LAST DOSE ON September. LAB: CBC AND CMP WEEKLY WHILE ON ROCEPHIN Vital Signs: EVERY 8HRS Laboratory Results Hemoglobin A1c Test 07/27/17 22:23 Range/Units Estimated Average Glucose 217 mg/dl Hemoglobin A1c 9.2 H 4.5-5.6 % Lipid Panel Test 07/29/17 07:27 Range/Units Triglycerides Level 263 H 0-150 mg/dl Cholesterol Level 207 H 0-200 mg/dl HDL Cholesterol 34 mg/dl Cholesterol/HDL Ratio 6.1 LDL Cholesterol, Calculated 120 mg/dl Medical Emergencies . Who to Call and When: Medical Emergencies: If at any time you feel your situation is an emergency, please call 911 immediately. . Non-Emergent Contact Non-Emergency issues call your: Primary Care Provider . . "Provider Documentation" section prepared by Hernan Busby. . Food Service Steward Recommendations Food Service Steward Recommendations: ACTIVITY RECOMMENDATIONS: Limitations: Heel weight bearing only if able to tolerate. SPECIAL CARE INSTRUCTIONS: * Some drainage onto the dressing is normal and is no cause for alarm. * Some swelling is natural especially after walking. * When resting, keep your foot elevated above the level of your heart. * Call [facility] if you notice: -Increased drainage -Fever over 101 degrees F -Severe constant pain * Recommend daily dressing changes with Aquacel Ag cut into small strips to cover the incisions and the 3rd/4th webspaces. * IV antibiotics per Infectious Disease recommendation. BANDAGE: * Leave bandage/cast in place unless otherwise directed. * Keep bandage/cast dry at all times. PIN CARE: * Leave pins alone. * If pins come loose or fall out, notify physician. FOLLOW UP VISIT WITH DR. SHAFER If appointment is not already scheduled: Please call [facility] after you get home today to schedule a follow-up appointment for in [address] Shafer at . Core Measure Problem Core Measures: None
[2017-09-08 13:18] VITALS: BP 116/81; PULSE 93; TEMP 36.5; O2SAT 93
== END 2017-09-08 13:35 | DRG 854 ==
LOC: C.EDB 04:15 → C.MS4W 06:28 → ENRESERV 06:38
PROVIDERS: ADMIT Internal Medicine; ATTEND Internal Medicine
PROC: 0JBR0ZZ Excision of Left Foot Subcutaneous Tissue and Fascia, Open Approach (ICD-10-PCS; principal; 2017-08-22)
DX: A41.9 Sepsis, unspecified organism (principal); L03.116 Cellulitis of left lower limb; E87.1 Hypo-osmolality and hyponatremia; L02.612 Cutaneous abscess of left foot; L97.909 Non-pressure chronic ulcer of unspecified part of unspecified lower leg with unspecified severity; E11.65 Type 2 diabetes mellitus with hyperglycemia; F32.9 Major depressive disorder, single episode, unspecified; I10 Essential (primary) hypertension; K58.9 Irritable bowel syndrome, unspecified; F79 Unspecified intellectual disabilities; F17.200 Nicotine dependence, unspecified, uncomplicated; E66.9 Obesity, unspecified; G47.33 Obstructive sleep apnea (adult) (pediatric); Z79.4 Long term (current) use of insulin; Z79.82 Long term (current) use of aspirin; Z80.9 Family history of malignant neoplasm, unspecified; Z83.3 Family history of diabetes mellitus; Z82.49 Family history of ischemic heart disease and other diseases of the circulatory system; A49.01 Methicillin susceptible Staphylococcus aureus infection, unspecified site

== ENCOUNTER → 2017-09-28 | Outpatient (CLI) | payer OTHER ==
[~2017-09-28] MED LIST changes: -ACET-1256 PO; -ATOR-24 PO; +ATOR10TA82 PO; +CEFT1INJ6 IV; +CEPH-571 PO; -CLIN300C2 PO; +CYM60 PO; -DICL1GEL12 TOP; +DOXY1TAB6 PO; +DXY100 PO; +HYDR50CA2 PO; +INSDGIPEN SQ; +LCTX PO; +LISI-461 PO; +LISI10TA PO; +LPT/40 PO; +METO25TA3 PO; +NVLGI/PEN SQ; +ONDA4TAB10 SL; +PANT40TA PO; +POLY335019 PO; -PROM1SUP19 PR; +RIVA1TAB7 PO; -SULF800T23 PO; +TPRSR25 PO; +TRAM-10 PO; +XRL10 PO; +XRL15 PO; +[UNRECOGNIZED DRUG - CODE] PO
[2017-09-28 17:41] LABS: HEMATOCRIT 40.4 % (42-52); HEMOGLOBIN 13.7 g/dL (14.0-18.0); MEAN CELL VOLUME 84.7 fL (80-100); MEAN CORPUSCULAR HEMOGLOBIN 28.7 pg (25-34); MEAN CORPUSCULAR HGB CONC 33.9 g/dl (32-36); MEAN PLATELET VOLUME 9.1 fL (7.4-10.4); PLATELET COUNT 238 K/uL (130-400); RED CELL DISTRIBUTION WIDTH CV 13.5 % (11.5-14.5); RED CELL DISTRIBUTION WIDTH SD 41.2 fL (36.4-46.3); WHITE BLOOD COUNT 5.62 K/uL (4.8-10.8)
[2017-09-28 18:13] LABS: ALBUMIN 3.3 gm/dl (3.4-5.0); ALT/SGPT 46 U/L (12-78); AST/SGOT 19 U/L (15-37); BLOOD UREA NITROGEN 13 mg/dl (7-18); CALCIUM 8.9 mg/dl (8.5-10.1); CARBON DIOXIDE 28 mmol/L (21-32); CREATININE 0.75 mg/dl (0.60-1.40); GLUCOSE 198 mg/dl (70-99); POTASSIUM 3.9 mmol/L (3.5-5.1); SODIUM 136 mmol/L (136-145)
[2017-09-28 18:16] LABS: ALKALINE PHOSPHATASE 73 U/L (45-117); TOTAL PROTEIN 7.6 gm/dl (6.4-8.2)
--- NOTE | 2017-12-10 09:56 | CODING QUERY NO DIAGNOSIS ---
: 71 TREATMENT RENDERED WITHOUT A DIAGNOSIS To promote full compliance with coding requirements relating to patient care, physician participation is requested in all cases of bottom hoop driver uncertainty. Please assist us with providing a diagnosis/symptom for the test(s) below: A diagnosis/symptom was not documented on your Order. A valid diagnosis/symptom is required to bill all insurances. Please remember that we are unable to code a diagnosis of rule out, probable, possible, questionable, or suspected. Tests that require a diagnosis: DOS: 09/28/17 * CBC WITHOUT DIFF DIAGNOSIS: * COMPREHENSIVE MTABOLIC PANEL DIAGNOSIS: Provider Signature: Date: Thank you [facility] Once completed, please kindly fax back to [phone] For questions please call [phone]
== END | disposition home or self-care (01) ==
LOC: C.LABSPEC 15:47
PROVIDERS: ATTEND Family Medicine
DX: R07.9 Chest pain, unspecified (principal); E11.9 Type 2 diabetes mellitus without complications

== ENCOUNTER 2017-10-09 18:28 | Inpatient (IN) | payer OTHER ==
[~2017-10-09] VITALS: Ht 190.5 cm; Wt 133.0 kg
[~2017-10-09 18:28] MED LIST changes: -ARIP1TAB15 PO; -ASPI81TA28 PO; -ATOR10TA82 PO; -CYM60 PO; -DOXY1TAB6 PO; -DXY100 PO; -HYDR50CA2 PO; -INSDGIPEN SQ; -LISI-461 PO; -LPT/40 PO; -METO25TA3 PO; -NRN400 PO; -NRN600 PO; -NVLGI/PEN SQ; -ONDA4TAB10 SL; -PANT40TA PO; -POLY335019 PO; -RIVA1TAB7 PO; -TPRSR25 PO; -TRAM-10 PO; -XRL10 PO; -XRL15 PO; -[UNRECOGNIZED DRUG - CODE] PO; -[UNRECOGNIZED DRUG - CODE] PO
--- NOTE | 2017-10-09 18:40 | EMERGENCY ROOM VISIT NOTE ---
History First contact with patient: 18:30 Chief Complaint: FOOT PAIN Stated Complaint: L LEG MAIN History of Present Illness The patient is a 41 year old male who presents to the Emergency Room via ambulance with complaints of "left leg pain". The patient states that he was sitting at home this evening when he developed abrupt onset of pain from his left foot radiating up to his left thigh. He states it is a burning sensation and aching. He states that he was at the wound center and they believe the left toe wound is healed. He denies any trauma to the area. He states that during the ride here in the ambulance he did feel a little tightness in his chest. He also has chills. He denies any trauma or injury or fever. Review of Systems A complete 10-point Review of Systems was discussed with the patient, with pertinent positives and negatives listed in the History of Present Illness. All remaining Review of Systems questions can be considered negative unless otherwise specified. Past Medical/Surgical History Medical Problems: (1) Depression (2) Depression (3) DM type 2 (diabetes mellitus, type 2) (4) DVT, lower extremity, proximal, acute (5) Foot abscess (6) Gastroparesis (7) HTN (hypertension) (8) IBS (irritable bowel syndrome) (9) Intellectual disability (10) Intellectual disability (11) Lumbago (12) Mental retardation (13) Nicotine abuse (14) Nicotine dependence (15) NSVT (nonsustained ventricular tachycardia) (16) Obesity (17) Obstructive sleep apnea (18) Sepsis (19) Stroke-like symptoms Surgical Problems: (1) S/P left knee arthroscopy (2) S/P tonsillectomy Social History Problems: (1) Alcohol abuse Family History Cancer Diabetes mellitus MOTHER GRANDMOTHER UNCLE AUNT Gallbladder disease Heart disease Hypertension MOTHER FATHER Lung disease Social History Smoking Status: Current Every Day Smoker Alcohol Use: heavy Drug Use: none Marital Status: Housing Status: lives with family Occupation Status: employed, other Current/Historical Medications Scheduled Aripiprazole (Aripiprazole), 10 MG PO HS Aspirin (Aspirin Ec), 81 MG PO DAILY Atorvastatin (Lipitor), 1 TAB PO DAILY Ceftriaxone Sodium (Rocephin), 2 GM IV DAILY Duloxetine Hcl (Cymbalta), 60 MG PO QAM Gabapentin (Gabapentin), 400 MG PO TID Gabapentin (Gabapentin), 600 MG PO TID Insulin Aspart (Novolog Flexpen), 28 UNITS SC AC Insulin Glargine (Lantus Solostar), 50 UNITS SC BID Lisinopril (Prinivil), 1 TAB PO DAILY Scheduled PRN Nicotine Polacrilex (Nicorelief), 1 PIECE PO DIRECTED PRN for NICOTINE CRAVINGS Polyethylene Glycol 3350 (Miralax), 17 GM PO DAILY PRN for Constipation Tramadol HCl (Tramadol HCl), 25 MG PO Q8 PRN for Pain Physical Exam Vital Signs Date Time Temp Pulse Resp B/P (MAP) Pulse Ox O2 Delivery O2 Flow Rate FiO2 10/09/17 20:15 112 16 125/76 98 Room Air 10/09/17 19:07 98 Room Air 10/09/17 19:05 116 10/09/17 18:35 37.0 121 16 135/83 97 Room Air Physical Exam VITAL SIGNS - Vital signs and nursing notes were reviewed. Stable. GENERAL - 41-year-old male appearing his stated age who is in no acute distress. Communicates well with provider and answers questions appropriately. SKIN - Without rashes. Skin overlying the left leg is unremarkable. EXTREMITIES - No clubbing or peripheral cyanosis. No pretibial edema present. Excellent pulses distally in the left leg. No swelling noted. Patient is able to axial load. +5/5 strength noted in UE/LE bilaterally. NEUROLOGIC - Cranial nerves II through XII grossly intact. Sensory intact to light touch throughout. PSYCH - A&O, and cooperates fully with examiner. Pt is very pleasant and interacts well with examiner. Medical Decision & Procedures ER Provider Diagnostic Interpretation: LEFT LOWER EXTREMITY VENOUS DOPPLER HISTORY: L leg pain, no trauma COMPARISON STUDY: Left leg venous Doppler 09/04/2017. FINDINGS: Nonocclusive thrombus is seen within the distal left superficial femoral vein. This area is noncompressible. The remaining left lower extremity deep venous structures are patent. IMPRESSION: Nonocclusive thrombus seen within the distal left superficial femoral vein. Electronically signed by: Vijay Wadsworth M.D. 10/09/2017 7:46 PM Dictated Date/Time: 10/09/2017 7:45 PM CHEST CTA for PULMONARY ARTERIES CT DOSE: 727.85 mGy.cm HISTORY: Atypical chest pain. TECHNIQUE: Multiaxial CT images of the chest were performed following the intravenous administration of contrast to evaluate the pulmonary arteries. Maximal intensity projection images were also obtained. A dose lowering technique was utilized adhering to the principles of ALARA. COMPARISON STUDY: Chest CTA 03/30/2017. FINDINGS: Normal caliber thoracic aorta with no evidence for dissection. The heart is normal in size. No pleural or pericardial effusions. Mild diffuse thickening of the esophagus. Nondiagnostic evaluation of the majority of the right middle and lower lobe segmental arteries due to the motion artifact. The remaining pulmonary arteries show no filling defects to suggest pulmonary embolus. The central airways are patent. No pneumothorax. No focal lung consolidations to suggest pneumonia. No suspicious lytic or blastic osseous lesions. Hepatic steatosis. The visualized spleen and adrenal glands are unremarkable. No mediastinal or hilar lymphadenopathy. IMPRESSION: 1. No evidence for pulmonary embolus with limitations as described above. 2. Mild diffuse esophageal thickening consistent with a nonspecific esophagitis. 3. Mild hepatic steatosis. Electronically signed by: Vijay Wadsworth M.D. 10/09/2017 8:57 PM Dictated Date/Time: 10/09/2017 8:33 PM Laboratory Results 10/09/17 19:07 Red Blood Count 4.73, Mean Corpuscular Volume 84.6, Mean Corpuscular Hemoglobin 28.8, Mean Corpuscular Hemoglobin Concent 34.0, Mean Platelet Volume 8.7, Neutrophils (%) (Auto) 54.9, Lymphocytes (%) (Auto) 33.8, Monocytes (%) (Auto) 8.8, Eosinophils (%) (Auto) 1.8, Basophils (%) (Auto) 0.5, Neutrophils # (Auto) 4.56, Lymphocytes # (Auto) 2.81, Monocytes # (Auto) 0.73, Eosinophils # (Auto) 0.15, Basophils # (Auto) 0.04 10/09/17 19:07 Test 10/09/17 19:07 White Blood Count 8.31 K/uL (4.8-10.8) Red Blood Count 4.73 M/uL (4.7-6.1) Hemoglobin 13.6 g/dL (14.0-18.0) Hematocrit 40.0 % (42-52) Mean Corpuscular Volume 84.6 fL (80-100) Mean Corpuscular Hemoglobin 28.8 pg (25-34) Mean Corpuscular Hemoglobin Concent 34.0 g/dl (32-36) Platelet Count 251 K/uL (130-400) Mean Platelet Volume 8.7 fL (7.4-10.4) Neutrophils (%) (Auto) 54.9 % Lymphocytes (%) (Auto) 33.8 % Monocytes (%) (Auto) 8.8 % Eosinophils (%) (Auto) 1.8 % Basophils (%) (Auto) 0.5 % Neutrophils # (Auto) 4.56 K/uL (1.4-6.5) Lymphocytes # (Auto) 2.81 K/uL (1.2-3.4) Monocytes # (Auto) 0.73 K/uL (0.11-0.59) Eosinophils # (Auto) 0.15 K/uL (0-0.5) Basophils # (Auto) 0.04 K/uL (0-0.2) RDW Standard Deviation 42.2 fL (36.4-46.3) RDW Coefficient of Variation 13.7 % (11.5-14.5) Immature Granulocyte % (Auto) 0.2 % Immature Granulocyte # (Auto) 0.02 K/uL (0.00-0.02) Prothrombin Time 11.0 SECONDS (9.0-12.0) Prothromb Time International Ratio 1.0 (0.9-1.1) Activated Partial Thromboplast Time 26.0 SECONDS (21.0-31.0) Partial Thromboplastin Ratio 1.0 Anion Gap 8.0 mmol/L (3-11) Est Creatinine Clear Calc Drug Dose 175.3 ml/min Estimated GFR () 126.8 Estimated GFR (Non- 109.4 BUN/Creatinine Ratio 16.9 (10-20) Calcium Level 8.8 mg/dl (8.5-10.1) Total Bilirubin 0.6 mg/dl (0.2-1) Aspartate Amino Transf (AST/SGOT) 21 U/L (15-37) Alanine Aminotransferase (ALT/SGPT) 44 U/L (12-78) Alkaline Phosphatase 70 U/L (45-117) Total Creatine Kinase 236 U/L (39-308) Creatine Kinase MB 4.1 ng/ml (0.5-3.6) Creatine Kinase MB Ratio 1.7 (0-3.0) Troponin I < 0.015 ng/ml (0-0.045) Total Protein 7.6 gm/dl (6.4-8.2) Albumin 3.6 gm/dl (3.4-5.0) Globulin 4.0 gm/dl (2.5-4.0) Albumin/Globulin Ratio 0.9 (0.9-2) Medications Administered Medications (Trade) Dose Ordered Sig/Mario Alberto Route Start Time Stop Time Status Last Admin Dose Admin Morphine Sulfate (MoRPHine SULFATE INJ) 4 mg NOW STAT IV 10/09/17 20:45 10/09/17 20:46 DC 10/09/17 20:51 4 MG Medical Decision Patient was seen and evaluated as above. Presents to us today with left leg pain and chest pain. Ultrasound was obtained and reveals DVT. CT chest negative for PE. The patient does have history of cardiac events in the past therefore we'll recommend staying in the hospital for chest pain rule out. Initial troponin negative. CBC reveals no consuming leukocytosis or anemia. Coag normal. Metabolic panel normal. Glucose at 147. The case was discussed with the attending physician, and since we've the hospitalist, Dr. Leija. Please refer to further documentation regarding his stay. In the evaluation and treatment of this patient following differential diagnoses were entertained: DVT, rhabdomyolysis, muscle strain, fracture, dislocation, CO, PE, among others. Impression Primary Impression: Chest pain Additional Impressions: DVT (deep venous thrombosis) Leg pain, left Departure Information Dispostion Admitted as an inpatient Condition FAIR Referrals Velasquez Valencia M.D. (PCP) Patient Instructions [facility] Problem Qualifiers
[2017-10-09 19:35] LABS: BASO % 0.5 %; BASO ABS # 0.04 K/uL (0-0.2); COMPLETE YES; EOS % 1.8 %; IG% 0.2 %; LYMPH % 33.8 %; LYMPH ABS # 2.81 K/uL (1.2-3.4); MEAN CELL VOLUME 84.6 fL (80-100); MEAN CORPUSCULAR HEMOGLOBIN 28.8 pg (25-34); MEAN PLATELET VOLUME 8.7 fL (7.4-10.4); MONO % 8.8 %; NEUT % 54.9 %; PLATELET COUNT 251 K/uL (130-400); RED BLOOD COUNT 4.73 M/uL (4.7-6.1); WHITE BLOOD COUNT 8.31 K/uL (4.8-10.8)
--- NOTE | 2017-10-09 19:48 | DIAGNOSTIC IMAGING REPORT ---
LEFT LOWER EXTREMITY VENOUS DOPPLER HISTORY: L leg pain, no trauma COMPARISON STUDY: Left leg venous Doppler 09/04/2017. FINDINGS: Nonocclusive thrombus is seen within the distal left superficial femoral vein. This area is noncompressible. The remaining left lower extremity deep venous structures are patent. IMPRESSION: Nonocclusive thrombus seen within the distal left superficial femoral vein. Electronically signed by: Vijay Wadsworth M.D. 10/09/2017 7:46 PM Dictated Date/Time: 10/09/2017 7:45 PM
[2017-10-09 19:54] LABS: BLOOD UREA NITROGEN 14 mg/dl (7-18); GLUCOSE 147 mg/dl (70-99)
[2017-10-09 19:55] LABS: ALT/SGPT 44 U/L (12-78); BUN/CREATININE RATIO 16.9 (10-20); CALCIUM 8.8 mg/dl (8.5-10.1); CARBON DIOXIDE 26 mmol/L (21-32); CHLORIDE 105 mmol/L (98-107); POTASSIUM 3.7 mmol/L (3.5-5.1); SODIUM 138 mmol/L (136-145)
[2017-10-09 19:59] LABS: ALB/GLOB RATIO 0.9 (0.9-2); ALKALINE PHOSPHATASE 70 U/L (45-117); AST/SGOT 21 U/L (15-37); CKMB/CK RATIO 1.7 (0-3.0)
[2017-10-09] MEDS ORDERED: OPTIRAY 320 IV PRN (20:30)
[2017-10-09] MEDS ORDERED: MoRPHine SULFATE 4 MG/ML 1 ML CARP\\VIAL IV STA (20:45)
--- NOTE | 2017-10-09 20:59 | DIAGNOSTIC IMAGING REPORT ---
CHEST CTA for PULMONARY ARTERIES CT DOSE: 727.85 mGy.cm HISTORY: Atypical chest pain. TECHNIQUE: Multiaxial CT images of the chest were performed following the intravenous administration of contrast to evaluate the pulmonary arteries. Maximal intensity projection images were also obtained. A dose lowering technique was utilized adhering to the principles of ALARA. COMPARISON STUDY: Chest CTA 03/30/2017. FINDINGS: Normal caliber thoracic aorta with no evidence for dissection. The heart is normal in size. No pleural or pericardial effusions. Mild diffuse thickening of the esophagus. Nondiagnostic evaluation of the majority of the right middle and lower lobe segmental arteries due to the motion artifact. The remaining pulmonary arteries show no filling defects to suggest pulmonary embolus. The central airways are patent. No pneumothorax. No focal lung consolidations to suggest pneumonia. No suspicious lytic or blastic osseous lesions. Hepatic steatosis. The visualized spleen and adrenal glands are unremarkable. No mediastinal or hilar lymphadenopathy. IMPRESSION: 1. No evidence for pulmonary embolus with limitations as described above. 2. Mild diffuse esophageal thickening consistent with a nonspecific esophagitis. 3. Mild hepatic steatosis. Electronically signed by: Vijay Wadsworth M.D. 10/09/2017 8:57 PM Dictated Date/Time: 10/09/2017 8:33 PM
[2017-10-09] MEDS ORDERED: NITROGLYCERIN 0.4 MG SL PER TAB CHARGE SL PRN (22:00)
[2017-10-09] MEDS ORDERED: ACETAMINOPHEN 325 MG TAB PO PRN (22:00)
--- NOTE | 2017-10-09 22:01 | History and Physical ---
History & Physical Date & Time of Service: Oct 09, 2017 at 22:01 . Chief Complaint: left leg pain . Primary Care Physician: Velasquez Valencia M.D. . History of Present Illness Source: patient, clinic records, hospital records 41 [address]O male followed by Dr. Valencia. History of hypertension, dyslipidemia, diabetes, and other problems noted below. I&D abscess left foot performed in August. Recently completed course of IV ceftriaxone. This afternoon he noted pain in his left thigh. Tried acetaminophen and tramadol without relief. Experience some chest pain on the way to the hospital. CP described as midsternal pain radiating to his left arm, associated with some mild SOB. No associated diaphoresis, nausea, vomiting. . Past Medical/Surgical History Chronic and Resolved Medical Problems: (1) Depression Status: Chronic (2) DM type 2 (diabetes mellitus, type 2) Status: Chronic (3) Gastroparesis Status: Chronic (4) HTN (hypertension) Status: Chronic (5) IBS (irritable bowel syndrome) Status: Chronic Surgical Problems: (1) S/P left knee arthroscopy Status: Chronic (2) S/P tonsillectomy Status: Chronic . Family History Cancer Diabetes mellitus MOTHER GRANDMOTHER UNCLE AUNT Gallbladder disease Heart disease Hypertension MOTHER FATHER Lung disease Social History Smoking Status: Current Every Day Smoker Alcohol Use: none Drug Use: none Marital Status: Housing status: lives with family 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, other Immunizations History of Influenza Vaccine: Yes Influenza Vaccine Date: Jul 24, 2016 History of Tetanus Vaccine?: Unknown History of Pneumococcal: Yes Pneumococcal Date: Feb 09, 2006 History of Hepatitis B Vaccine: No Multi-Drug Resistant Organisms History of MDRO: No Allergies Coded Allergies: Cephalosporins (Verified Allergy, Unknown, CECLOR- RXN UNKNOWN. A CHILD. WILLING TO TRY CEPHS AGAIN, 10/09/17) NSAIDs (Verified Adverse Reaction, Unknown, gastroparesis, kidney problems , 10/09/17) Home Medications Scheduled Aripiprazole (Aripiprazole), 10 MG PO HS Aspirin (Aspirin Ec), 81 MG PO DAILY Atorvastatin (Lipitor), 1 TAB PO DAILY Duloxetine Hcl (Cymbalta), 60 MG PO QAM Gabapentin (Gabapentin), 400 MG PO TID Gabapentin (Gabapentin), 600 MG PO TID Insulin Aspart (Novolog Flexpen), 28 UNITS SC AC Insulin Glargine (Lantus Solostar), 50 UNITS SC BID Lisinopril (Prinivil), 1 TAB PO DAILY Scheduled PRN Nicotine Polacrilex (Nicorelief), 1 PIECE PO DIRECTED PRN for NICOTINE CRAVINGS Polyethylene Glycol 3350 (Miralax), 17 GM PO DAILY PRN for Constipation Tramadol HCl (Tramadol HCl), 25 MG PO Q8 PRN for Pain Review of Systems Constitutional: No fever, No weight loss Eyes: No worsening of vision, No diplopia ENT: No nasal symptoms Respiratory: No cough Cardiovascular: + problem reported (per HPI) Abdomen: No nausea, No vomiting, No diarrhea, No GI bleeding Musculoskeletal: + joint pain Genitourinary - Male: No hematuria, No dysuria Neurologic: + problem reported (diabetic neuropathy; no headaches) Endocrine: + problem reported (blood sugars fairly well controlled), No excessive thirst, No excessive urination Hematologic / Lymphatic: No abnormal bleeding/bruising Integumentary: No rash, No new/changing skin lesions Physical Exam Vital Signs Date Time Temp Pulse Resp B/P (MAP) Pulse Ox O2 Delivery O2 Flow Rate FiO2 10/09/17 20:15 112 16 125/76 98 Room Air 10/09/17 19:07 98 Room Air 10/09/17 19:05 116 10/09/17 18:35 37.0 121 16 135/83 97 Room Air General Appearance: no apparent distress, + obese Head: normocephalic, atraumatic Eyes: normal inspection, PERRL, EOMI, sclerae normal ENT: normal ENT inspection, pharynx normal Neck: supple, no adenopathy, thyroid normal, no JVD, trachea midline Respiratory/Chest: lungs clear, no respiratory distress, no accessory muscle use Cardiovascular: regular rate, rhythm, no edema, no gallop, no JVD, no murmur, normal peripheral pulses Abdomen/GI: normal bowel sounds, non tender, soft, no organomegaly Extremities/Musculoskelatal: normal inspection, normal capillary refill, no pedal edema, + pertinent finding (tenderness left medial thigh and left calf; no erythema or warmth left foot) 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 (URBANO, EOMI, no facial palsy, no dysarthria), no motor/sensory deficits (grossly intact), normal mood/affect, oriented x 3 Skin: normal color, warm/dry, no rash Lymphatic: no adenopathy (cervical) Diagnostics Laboratory Results Results Past 24 Hours Test 10/09/17 19:07 Range/Units White Blood Count 8.31 4.8-10.8 K/uL Red Blood Count 4.73 4.7-6.1 M/uL Hemoglobin 13.6 14.0-18.0 g/dL Hematocrit 40.0 42-52 % Mean Corpuscular Volume 84.6 80-100 fL Mean Corpuscular Hemoglobin 28.8 25-34 pg Mean Corpuscular Hemoglobin Concent 34.0 32-36 g/dl Platelet Count 251 130-400 K/uL Mean Platelet Volume 8.7 7.4-10.4 fL Neutrophils (%) (Auto) 54.9 % Lymphocytes (%) (Auto) 33.8 % Monocytes (%) (Auto) 8.8 % Eosinophils (%) (Auto) 1.8 % Basophils (%) (Auto) 0.5 % Neutrophils # (Auto) 4.56 1.4-6.5 K/uL Lymphocytes # (Auto) 2.81 1.2-3.4 K/uL Monocytes # (Auto) 0.73 0.11-0.59 K/uL Eosinophils # (Auto) 0.15 0-0.5 K/uL Basophils # (Auto) 0.04 0-0.2 K/uL RDW Standard Deviation 42.2 36.4-46.3 fL RDW Coefficient of Variation 13.7 11.5-14.5 % Immature Granulocyte % (Auto) 0.2 % Immature Granulocyte # (Auto) 0.02 0.00-0.02 K/uL Prothrombin Time 11.0 9.0-12.0 SECONDS Prothromb Time International Ratio 1.0 0.9-1.1 Activated Partial Thromboplast Time 26.0 21.0-31.0 SECONDS Partial Thromboplastin Ratio 1.0 Sodium Level 138 136-145 mmol/L Potassium Level 3.7 3.5-5.1 mmol/L Chloride Level 105 98-107 mmol/L Carbon Dioxide Level 26 21-32 mmol/L Anion Gap 8.0 3-11 mmol/L Blood Urea Nitrogen 14 7-18 mg/dl Creatinine 0.80 0.60-1.40 mg/dl Est Creatinine Clear Calc Drug Dose 175.3 ml/min Estimated GFR () 126.8 Estimated GFR (Non- 109.4 BUN/Creatinine Ratio 16.9 10-20 Random Glucose 147 70-99 mg/dl Calcium Level 8.8 8.5-10.1 mg/dl Total Bilirubin 0.6 0.2-1 mg/dl Aspartate Amino Transf (AST/SGOT) 21 15-37 U/L Alanine Aminotransferase (ALT/SGPT) 44 12-78 U/L Alkaline Phosphatase 70 45-117 U/L Total Creatine Kinase 236 39-308 U/L Creatine Kinase MB 4.1 0.5-3.6 ng/ml Creatine Kinase MB Ratio 1.7 0-3.0 Troponin I < 0.015 0-0.045 ng/ml Total Protein 7.6 6.4-8.2 gm/dl Albumin 3.6 3.4-5.0 gm/dl Globulin 4.0 2.5-4.0 gm/dl Albumin/Globulin Ratio 0.9 0.9-2 Diagnostic Radiology LEFT LOWER EXTREMITY VENOUS DOPPLER FINDINGS: Nonocclusive thrombus is seen within the distal left superficial femoral vein. This area is noncompressible. The remaining left lower extremity deep venous structures are patent. IMPRESSION: Nonocclusive thrombus seen within the distal left superficial femoral vein. Electronically signed by: Vijay Wadsworth M.D. 10/09/2017 7:46 PM Dictated Date/Time: 10/09/2017 7:45 PM CHEST CTA for PULMONARY ARTERIES FINDINGS: Normal caliber thoracic aorta with no evidence for dissection. The heart is normal in size. No pleural or pericardial effusions. Mild diffuse thickening of the esophagus. Nondiagnostic evaluation of the majority of the right middle and lower lobe segmental arteries due to the motion artifact. The remaining pulmonary arteries show no filling defects to suggest pulmonary embolus. The central airways are patent. No pneumothorax. No focal lung consolidations to suggest pneumonia. No suspicious lytic or blastic osseous lesions. Hepatic steatosis. The visualized spleen and adrenal glands are unremarkable. No mediastinal or hilar lymphadenopathy. IMPRESSION: 1. No evidence for pulmonary embolus with limitations as described above. 2. Mild diffuse esophageal thickening consistent with a nonspecific esophagitis. 3. Mild hepatic steatosis. Electronically signed by: Vijay Wadsworth M.D. 10/09/2017 8:57 PM Dictated Date/Time: 10/09/2017 8:33 PM . EKG EKG performed at 18:[address] at 120 / minute, intraventricular conduction delay, no acute changes. . Impression Assessment and Plan DVT LEFT LOWER EXTREMITY (present on admission) Venous duplex demonstrates thrombosis left superficial femoral vein. Had I&D abscess left foot about 6 wks prior. ? provoked DVT due to foot surgery and associated decreased mobility. Other apparent risk factor is obesity (BMI 36). Initial therapy with SQ enoxaparin. Transition to oral therapy after further discussion and exploration of pt's formulary medications. Duration of therapy at least 3 months. Consider outpatient Hematology consultation for further recommendations. CHEST PAIN No apparent PE per CTA, but suboptimal study. Check serial cardiac markers. HYPERTENSION Continue lisinopril. DM TYPE 2 Not always well-controlled. Hgb A1C 9.2 07/27/17. Random blood sugar 147. Continue Lantus + NovoLog. SLEEP APNEA Recently diagnosed. Has outpatient appt with Sleep Medicine. VTE PROPHYLAXIS SQ enoxaparin for acute DVT. DISPOSITION Expected discharge to home. Family Medicine follow-up with Dr. Valencia. . VTE Prophylaxis VTE Risk Assessment Done? Y/N: Yes Risk Level: High Given or contraindicated: Enoxaparin (Lovenox)SQ
[2017-10-09] MEDS ORDERED: ENOXAPARIN 150 MG/1ML SYR SQ STA (22:21)
[2017-10-09] MEDS ORDERED: GABAPENTIN 400 MG CAP PO ONE (22:34)
[2017-10-09] MEDS ORDERED: ARIPIprazole TAB 10 MG TAB PO ONE (22:34)
[2017-10-09] MEDS ORDERED: INSULIN GLARGINE SOLOSTAR 100 UNITS/ML 3 ML PEN SC ONE (22:34)
[2017-10-09] MEDS ORDERED: GABAPENTIN 600 MG TAB PO ONE (22:34)
[2017-10-09] MEDS ORDERED: POLYETHYLENE (MIRALAX) 17 GM PACK PO PRN (22:45)
[2017-10-09] MEDS ORDERED: TRAMADOL HCL 50 MG TAB PO PRN (22:45)
[2017-10-09] MEDS ORDERED: DEXTROSE 50% 50 ML SYR IV PRN (23:45)
[2017-10-09] MEDS ORDERED: GLUCOSE 10 TABS/TUBE PO PRN (23:45)
[2017-10-09] MEDS ORDERED: GLUCOSE 40% GEL 15 GM TUBE PO PRN (23:45)
[2017-10-09] MEDS ORDERED: GLUCAGON FOR INJ 1 MG VIAL SQ PRN (23:45)
[2017-10-09 23:47] VITALS: BP 102/57; PULSE 95; TEMP 36.7; O2SAT 91; Ht 190.5 cm; Wt 133.0 kg
[2017-10-10] VITALS (9 sets, daily range): BP systolic 89–128; BP diastolic 50–76; PULSE 92–106; TEMP 36.3–36.9; O2SAT 91–97
[2017-10-10] MEDS: ASPIRIN 81 MG ECTAB PO SCH (07:53)
[2017-10-10] MEDS: GABAPENTIN 400 MG CAP PO SCH ×3 (07:53→21:07)
[2017-10-10] MEDS: ATORVASTATIN 10 MG TAB PO SCH (07:53)
[2017-10-10] MEDS: DULOXETINE HCL 60 MG CAP PO SCH (07:53)
[2017-10-10] MEDS: LISINOPRIL 10 MG TAB PO SCH (07:53)
[2017-10-10] MEDS: GABAPENTIN 600 MG TAB PO SCH ×3 (07:54→21:08)
[2017-10-10] MEDS: INSULIN ASPART 100 UNITS/ML 3 ML PEN SC SCH ×3 (07:58→17:06)
[2017-10-10] MEDS ORDERED: INSULIN GLARGINE SOLOSTAR 100 UNITS/ML 3 ML PEN SC SCH (09:00)
[2017-10-10] MEDS: ENOXAPARIN 150 MG/1ML SYR SQ SCH ×2 (09:40→21:21)
--- NOTE | 2017-10-10 13:31 | Progress Note ---
Internal Med Progress Note Date of Service: Oct 10, 2017. Provider Documentation: SUBJECTIVE: resting comfortably chest pain resolved no sob afebrile no nausea has some pain in lower extremity OBJECTIVE: Vital Signs-as noted below Exam: General alert and awake . not in distress ENT-Normal hearing Neck-no neck masses Lungs-Cta b/l no wheezing or crackles Heart-S1 and S2 heard regular No murmurs Abdomen-Soft Bowel sounds present non tender No distension Extremities- left foot in dressing Neuro-alert and awake moves extremities Lab data as noted below. ASSESSMENT & PLAN: DVT LEFT LOWER EXTREMITY (present on admission) Venous duplex - thrombosis left superficial femoral vein. Had I&D abscess left foot about 6 wks prior. Possible provoked DVT due to foot surgery and associated decreased mobility status. Other apparent risk factor is obesity (BMI 36). on Lovenox sub patient considering Xarelto will check with social service regarding costs CHEST PAIN CTA chest unremarkable will f/u serial ce currently asymptomatic. HYPERTENSION On lisinopril. Will monitor DM TYPE 2 Not well-controlled. Hgb A1C 9.2 07/27/17. Random blood sugar 147. on Lantus + NovoLog. Will monitor SLEEP APNEA Recently diagnosed. Has outpatient appt with Sleep Medicine. VTE PROPHYLAXIS SQ enoxaparin. DISPOSITION Expected discharge to home. Followup with Family doctor Dr. Valencia. . Vital Signs: Date Time Temp Pulse Resp B/P (MAP) Pulse Ox O2 Delivery O2 Flow Rate FiO2 10/10/17 13:14 36.6 106 20 126/67 (86) 93 Room Air 10/10/17 12:00 94 Room Air 10/10/17 11:17 36.9 105 20 99/65 (76) 94 Room Air 89/55 (66) 10/10/17 08:00 97 Room Air 10/10/17 07:11 36.5 97 20 89/50 (63) 97 118/76 (90) 10/10/17 04:50 36.3 92 18 114/72 (86) 96 Room Air 10/10/17 04:00 Room Air 10/10/17 00:00 Room Air 10/09/17 23:47 36.7 95 16 102/57 91 Room Air 10/09/17 22:26 100 16 104/57 95 Room Air 10/09/17 20:15 112 16 125/76 98 Room Air 10/09/17 19:07 98 Room Air 10/09/17 19:05 116 10/09/17 18:35 37.0 121 16 135/83 97 Room Air Lab Results: Results Past 24 Hours Test 10/09/17 19:07 10/09/17 23:35 10/10/17 06:52 10/10/17 11:21 Range/Units White Blood Count 8.31 4.8-10.8 K/uL Red Blood Count 4.73 4.7-6.1 M/uL Hemoglobin 13.6 14.0-18.0 g/dL Hematocrit 40.0 42-52 % Mean Corpuscular Volume 84.6 80-100 fL Mean Corpuscular Hemoglobin 28.8 25-34 pg Mean Corpuscular Hemoglobin Concent 34.0 32-36 g/dl Platelet Count 251 130-400 K/uL Mean Platelet Volume 8.7 7.4-10.4 fL Neutrophils (%) (Auto) 54.9 % Lymphocytes (%) (Auto) 33.8 % Monocytes (%) (Auto) 8.8 % Eosinophils (%) (Auto) 1.8 % Basophils (%) (Auto) 0.5 % Neutrophils # (Auto) 4.56 1.4-6.5 K/uL Lymphocytes # (Auto) 2.81 1.2-3.4 K/uL Monocytes # (Auto) 0.73 0.11-0.59 K/uL Eosinophils # (Auto) 0.15 0-0.5 K/uL Basophils # (Auto) 0.04 0-0.2 K/uL RDW Standard Deviation 42.2 36.4-46.3 fL RDW Coefficient of Variation 13.7 11.5-14.5 % Immature Granulocyte % (Auto) 0.2 % Immature Granulocyte # (Auto) 0.02 0.00-0.02 K/uL Prothrombin Time 11.0 9.0-12.0 SECONDS Prothromb Time International Ratio 1.0 0.9-1.1 Activated Partial Thromboplast Time 26.0 21.0-31.0 SECONDS Partial Thromboplastin Ratio 1.0 Sodium Level 138 136-145 mmol/L Potassium Level 3.7 3.5-5.1 mmol/L Chloride Level 105 98-107 mmol/L Carbon Dioxide Level 26 21-32 mmol/L Anion Gap 8.0 3-11 mmol/L Blood Urea Nitrogen 14 7-18 mg/dl Creatinine 0.80 0.60-1.40 mg/dl Est Creatinine Clear Calc Drug Dose 175.3 ml/min Estimated GFR () 126.8 Estimated GFR (Non- 109.4 BUN/Creatinine Ratio 16.9 10-20 Random Glucose 147 70-99 mg/dl Calcium Level 8.8 8.5-10.1 mg/dl Total Bilirubin 0.6 0.2-1 mg/dl Aspartate Amino Transf (AST/SGOT) 21 15-37 U/L Alanine Aminotransferase (ALT/SGPT) 44 12-78 U/L Alkaline Phosphatase 70 45-117 U/L Total Creatine Kinase 236 39-308 U/L Creatine Kinase MB 4.1 0.5-3.6 ng/ml Creatine Kinase MB Ratio 1.7 0-3.0 Troponin I < 0.015 0-0.045 ng/ml Total Protein 7.6 6.4-8.2 gm/dl Albumin 3.6 3.4-5.0 gm/dl Globulin 4.0 2.5-4.0 gm/dl Albumin/Globulin Ratio 0.9 0.9-2 Bedside Glucose 80 109 88 70-99 mg/dl
[2017-10-10] MEDS: ARIPIprazole TAB 10 MG TAB PO SCH (21:07)
[2017-10-10] MEDS: INSULIN GLARGINE SOLOSTAR 100 UNITS/ML 3 ML PEN SC SCH (21:10)
[2017-10-11] VITALS (11 sets, daily range): BP systolic 118–147; BP diastolic 63–85; PULSE 92–101; TEMP 36.4–36.9; O2SAT 90–94
[2017-10-11] MEDS: ASPIRIN 81 MG ECTAB PO SCH (07:34)
[2017-10-11] MEDS: GABAPENTIN 400 MG CAP PO SCH ×3 (07:34→21:11)
[2017-10-11] MEDS: ATORVASTATIN 10 MG TAB PO SCH (07:34)
[2017-10-11] MEDS: DULOXETINE HCL 60 MG CAP PO SCH (07:34)
[2017-10-11] MEDS: GABAPENTIN 600 MG TAB PO SCH ×3 (07:34→21:11)
[2017-10-11] MEDS: LISINOPRIL 10 MG TAB PO SCH (07:35)
[2017-10-11] MEDS: INSULIN GLARGINE SOLOSTAR 100 UNITS/ML 3 ML PEN SC SCH ×2 (07:37→21:12)
[2017-10-11] MEDS: INSULIN ASPART 100 UNITS/ML 3 ML PEN SC SCH ×3 (07:37→17:17)
[2017-10-11] MEDS: ENOXAPARIN 150 MG/1ML SYR SQ SCH ×2 (10:00→21:10)
[2017-10-11] MEDS ORDERED: WARFARIN SOD 10 MG TAB PO ONE (14:15)
--- NOTE | 2017-10-11 19:00 | Progress Note ---
Internal Med Progress Note Date of Service: Oct 11, 2017. Provider Documentation: SUBJECTIVE: resting comfortably denies any chest pain denies sob no pain wants to go home OBJECTIVE: Vital Signs-as noted below Exam: General alert and awake . not in distress ENT-Normal hearing Neck-no neck masses Lungs-Cta b/l no wheezing or crackles Heart-S1 and S2 heard regular No murmurs Abdomen-Soft Bowel sounds present non tender No distension Extremities- left foot in dressing Neuro-alert and awake moves extremities Lab data as noted below. ASSESSMENT & PLAN: DVT LEFT LOWER EXTREMITY (present on admission) Venous duplex - thrombosis left superficial femoral vein. Had I&D abscess left foot about 6 wks prior. Possible provoked DVT due to foot surgery and associated decreased mobility status. Other apparent risk factor is obesity (BMI 36). on Lovenox sub patient considering Xarelto start on Coumadin will check with social service regarding costs CHEST PAIN CTA chest unremarkable will f/u serial ce currently asymptomatic. HYPERTENSION On lisinopril. Will monitor DM TYPE 2 Not well-controlled. Hgb A1C 9.2 07/27/17. Random blood sugar 147. on Lantus + NovoLog. Will monitor SLEEP APNEA Recently diagnosed. Has outpatient appt with Sleep Medicine. VTE PROPHYLAXIS SQ enoxaparin. DISPOSITION Expected discharge to home in am . Followup with Family doctor Dr. Valencia. . Vital Signs: Date Time Temp Pulse Resp B/P (MAP) Pulse Ox O2 Delivery O2 Flow Rate FiO2 10/11/17 16:05 92 Room Air 10/11/17 15:47 95 20 138/83 (101) 90 Room Air 10/11/17 15:45 36.7 98 20 122/63 (82) 93 Room Air 10/11/17 12:11 92 Room Air 10/11/17 11:24 36.8 101 18 127/69 (88) 94 Room Air 10/11/17 08:01 92 Room Air 10/11/17 06:54 36.8 92 20 143/75 (97) 92 Room Air 10/11/17 04:03 36.7 95 20 118/69 (85) 92 Room Air 10/11/17 04:00 Room Air 10/11/17 00:15 Room Air 10/10/17 23:06 36.5 93 20 122/68 (86) 92 Room Air 10/10/17 20:00 Room Air 10/10/17 19:16 36.7 93 20 117/68 (84) 94 Room Air Lab Results: Results Past 24 Hours Test 10/10/17 19:55 10/11/17 07:03 10/11/17 11:06 10/11/17 16:29 Range/Units Bedside Glucose 87 99 76 69 70-99 mg/dl Test 10/11/17 17:14 Range/Units Bedside Glucose 138 70-99 mg/dl
[2017-10-11] MEDS: ARIPIprazole TAB 10 MG TAB PO SCH (21:10)
[2017-10-12 04:01] VITALS: BP 154/84; PULSE 99; TEMP 36.5; O2SAT 93
[2017-10-12 06:33] LABS: PROTHROMBIN TIME (PATIENT) 10.8 SECONDS (9.0-12.0)
[2017-10-12 07:10] VITALS: BP 156/93; PULSE 94; TEMP 36.7; O2SAT 95
[2017-10-12] MEDS: GABAPENTIN 400 MG CAP PO SCH (08:45)
[2017-10-12] MEDS: LISINOPRIL 10 MG TAB PO SCH (08:46)
[2017-10-12] MEDS: DULOXETINE HCL 60 MG CAP PO SCH (08:46)
[2017-10-12] MEDS: GABAPENTIN 600 MG TAB PO SCH (08:46)
[2017-10-12] MEDS: ATORVASTATIN 10 MG TAB PO SCH (08:46)
[2017-10-12] MEDS: ASPIRIN 81 MG ECTAB PO SCH (08:46)
[2017-10-12] MEDS: INSULIN GLARGINE SOLOSTAR 100 UNITS/ML 3 ML PEN SC SCH (08:49)
[2017-10-12] MEDS: INSULIN ASPART 100 UNITS/ML 3 ML PEN SC SCH ×2 (08:49→12:40)
[2017-10-12] MEDS: ENOXAPARIN 150 MG/1ML SYR SQ SCH (08:50)
[2017-10-12] MEDS ORDERED: PERFLUTREN LIPID MICROSPHERE (DEFINITY) IV ONE (10:32)
[2017-10-12 11:19] VITALS: BP 116/73; PULSE 103; TEMP 36.9; O2SAT 91
[2017-10-12] MEDS ORDERED: RIVAROXABAN TAB 15 MG TAB PO SCH ×2 (11:45→13:00)
[2017-10-12] MEDS ORDERED: RIVA1TAB7 PO (12:07)
--- NOTE | 2017-10-12 12:10 | Discharge Instructions ---
Discharge Instructions Date of Service Oct 12, 2017. Admission Reason for Admission: Chest Pain; Dvt, Lower Extremity Proximal Acute Discharge Discharge Diagnosis / Problem: LEFT LOWER EXTREMITY ACUTE dvt Discharge Goals Goal(s): Decrease discomfort, Improve function Activity Recommendations Activity Limitations: resume your previous activity . Instructions / Follow-Up Instructions / Follow-Up FOLLOWUP WITH FAMILY DOCTOR ON Oct AT 10:45AM. XARELTO 15MG PO TWICE DAILY X 21 DAYS THEN XARELTO 20MG PO ONCE DAILY. TO TAKE WITH FOOD DURATION OF XARELTO AT LEAST FOR 3 MONTHS THEN FURTHER RECOMMENDATIONS PER FAMILY DOCTOR. Current Hospital Diet Patient's current hospital diet: AHA Diet (Heart Healthy), Diabetes Type 2 Diet Discharge Diet Recommended Diet: AHA Diet (Heart Healthy), Diabetes Type 2 Diet Pending Studies Studies pending at discharge: no Laboratory Results Hemoglobin A1c Test 07/27/17 22:23 Range/Units Estimated Average Glucose 217 mg/dl Hemoglobin A1c 9.2 H 4.5-5.6 % Lipid Panel Test 07/29/17 07:27 Range/Units Triglycerides Level 263 H 0-150 mg/dl Cholesterol Level 207 H 0-200 mg/dl HDL Cholesterol 34 mg/dl Cholesterol/HDL Ratio 6.1 LDL Cholesterol, Calculated 120 mg/dl Medical Emergencies . Who to Call and When: Medical Emergencies: If at any time you feel your situation is an emergency, please call 911 immediately. . Non-Emergent Contact Non-Emergency issues call your: Primary Care Provider . . "Provider Documentation" section prepared by Hernan Busby. . VTE Core Measure Inpt VTE Proph given/why not?: Enoxaparin (Lovenox)SQ
[2017-10-12 12:27] VITALS: BP 116/73; PULSE 103; TEMP 36.9; O2SAT 91
[2017-10-12] MEDS ORDERED: NURSING VERBAL MED ORDER ONE (12:45)
--- NOTE | 2017-10-12 14:11 | Progress Note ---
Internal Med Progress Note Date of Service: Oct 12, 2017. Provider Documentation: SUBJECTIVE: resting comfortably NO SOB SOME CHEST DISCOMFORT ON DEEP BREATH' AFEBRILE HEMODYNAMICS STABLE OK FOR DISCHARGE OBJECTIVE: Vital Signs-as noted below Exam: General alert and awake . not in distress ENT-Normal hearing Neck-no neck masses Lungs-Cta b/l no wheezing or crackles Heart-S1 and S2 heard regular No murmurs Abdomen-Soft Bowel sounds present non tender No distension Extremities- left foot in dressing Neuro-alert and awake moves extremities Lab data as noted below. ASSESSMENT & PLAN: DVT LEFT LOWER EXTREMITY (present on admission) Venous duplex - thrombosis left superficial femoral vein. Had I&D abscess left foot about 6 wks prior. Possible provoked DVT due to foot surgery and associated decreased mobility status. Other apparent risk factor is obesity (BMI 36). on Lovenox sub patient considering Xarelto DISCHARGED ON XARELTO AFTER CHECKING WITH PHARMACY BY SOCIAL SERVICE TO BE ON XARELTO AT LEAST 3MONTHS. FURTHER DURATION PER PCP CHEST PAIN CTA chest unremarkable CE AND EKG UNREMARKABLE PAIN MOSTLY WHEN TAKING DEEP BREATH HYPERTENSION On lisinopril. Will monitor DM TYPE 2 Not well-controlled. Hgb A1C 9.2 07/27/17. Random blood sugar 147. on Lantus + NovoLog. D/C ON HOME MEDS F/U WITH PCP SLEEP APNEA Recently diagnosed. Has outpatient appt with Sleep Medicine. DISCHARGED HOME Vital Signs: Date Time Temp Pulse Resp B/P (MAP) Pulse Ox O2 Delivery O2 Flow Rate FiO2 10/12/17 12:27 36.9 103 20 91 Room Air 10/12/17 12:02 Room Air 10/12/17 11:19 36.9 103 20 116/73 (87) 91 Room Air 10/12/17 08:55 Room Air 10/12/17 07:10 36.7 94 20 156/93 (114) 95 Room Air 10/12/17 04:01 36.5 99 20 154/84 (107) 93 Room Air 10/12/17 04:00 Room Air 10/12/17 00:00 Room Air 10/11/17 23:41 36.4 93 22 147/85 (105) 92 Room Air 10/11/17 20:02 36.9 92 18 138/77 (97) 93 Room Air 10/11/17 20:00 92 Room Air 10/11/17 16:05 92 Room Air 10/11/17 15:47 95 20 138/83 (101) 90 Room Air 10/11/17 15:45 36.7 98 20 122/63 (82) 93 Room Air Lab Results: Results Past 24 Hours Test 10/11/17 16:29 10/11/17 17:14 10/11/17 20:19 10/12/17 05:53 Range/Units Bedside Glucose 69 138 154 70-99 mg/dl Prothrombin Time 10.8 9.0-12.0 SECONDS Prothromb Time International Ratio 1.0 0.9-1.1 Test 10/12/17 07:21 10/12/17 11:28 Range/Units Bedside Glucose 123 141 70-99 mg/dl
--- NOTE | 2017-10-12 14:13 | Discharge Summary ---
Discharge Summary Date of Service Oct 12, 2017. Discharge Summary Admission Date: Oct 09, 2017 at 22:00 Discharge Date: Oct 12, 2017 Discharge Disposition: Home Principal Diagnosis: ACUTE DVT Secondary Diagnoses/Problems: (1) Depression Status: Chronic (2) DM type 2 (diabetes mellitus, type 2) Status: Chronic (3) Gastroparesis Status: Chronic (4) HTN (hypertension) Status: Chronic (5) IBS (irritable bowel syndrome) Status: Chronic Procedures: LEFT LOWER EXT US: Nonocclusive thrombus seen within the distal left superficial femoral vein. CTA CHEST: 1. No evidence for pulmonary embolus with limitations as described above. 2. Mild diffuse esophageal thickening consistent with a nonspecific esophagitis. 3. Mild hepatic steatosis. Medication Reconciliation New Medications: Rivaroxaban (Xarelto Starter Pack 15 & 20 mg) 1 Tab Tab 15 MG PO UD for 30 Days, 3 Refills XARELTO 15MG PO TWICE DAILY X 21 DAYS THEN XARELTO 20MG PO ONCE DAILY Continued Medications: Aripiprazole (Aripiprazole) 10 Mg Tab 10 MG PO HS Aspirin (Aspirin Ec) 81 Mg Tab 81 MG PO DAILY Atorvastatin (Lipitor) 10 Mg Tab 1 TAB PO DAILY, TAB 5 Refills Duloxetine Hcl (Cymbalta) 60 Mg Cap 60 MG PO QAM, CAP Gabapentin (Gabapentin) 400 Mg Cap 400 MG PO TID TAKE ONE 400 MG TABLET ALONG WITH ONE 600 MG TABLET TO EQUAL 1000 MG DOSE Gabapentin (Gabapentin) 600 Mg Tab 600 MG PO TID TAKE ONE 600 MG TABLET ALONG WITH ONE 400 MG TABLET TO EQUAL 1000 MG DOSE Insulin Aspart (Novolog Flexpen) 100 Units/Ml Inj 28 UNITS SC AC, #1 2 Refills Insulin Glargine (Lantus Solostar) 100 Unit/Ml Inj 50 UNITS SC BID, #1 2 Refills Lisinopril (Prinivil) 10 Mg Tab 1 TAB PO DAILY, TAB 1 Refill Nicotine Polacrilex (Nicorelief) 1 Piece Gum 1 PIECE PO DIRECTED PRN for NICOTINE CRAVINGS Polyethylene Glycol 3350 (Miralax) 1 Pow Pow 17 GM PO DAILY PRN for Constipation, #527 GM Tramadol HCl (Tramadol HCl) 50 Mg Tab 25 MG PO Q8 PRN for Pain, #14 Admission Information HPI (per Admitting provider): 41 YO male followed by Dr. Valencia. History of hypertension, dyslipidemia, diabetes, and other problems noted below. I&D abscess left foot performed in August. Recently completed course of IV ceftriaxone. This afternoon he noted pain in his left thigh. Tried acetaminophen and tramadol without relief. Experience some chest pain on the way to the hospital. CP described as midsternal pain radiating to his left arm, associated with some mild SOB. No associated diaphoresis, nausea, vomiting. . Physical Exam (per Admitting): General Appearance: no apparent distress, + obese Head: normocephalic, atraumatic Eyes: normal inspection, PERRL, EOMI, sclerae normal ENT: normal ENT inspection, pharynx normal Neck: supple, no adenopathy, thyroid normal, no JVD, trachea midline Respiratory/Chest: lungs clear, no respiratory distress, no accessory muscle use Cardiovascular: regular rate, rhythm, no edema, no gallop, no JVD, no murmur , normal peripheral pulses Abdomen/GI: normal bowel sounds, non tender, soft, no organomegaly Extremities/Musculoskelatal: normal inspection, normal capillary refill, no pedal edema, + pertinent finding (tenderness left medial thigh and left calf; no erythema or warmth left foot) 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 Had I&D abscess left foot about 6 wks prior. Possible provoked DVT due to foot surgery and associated decreased mobility status. Other apparent risk factor is obesity (BMI 36). on Lovenox sub patient considering Xarelto DISCHARGED ON XARELTO AFTER CHECKING WITH PHARMACY BY SOCIAL SERVICE TO BE ON XARELTO AT LEAST 3MONTHS. FURTHER DURATION PER PCP CHEST PAIN CTA chest unremarkable CE AND EKG UNREMARKABLE PAIN MOSTLY WHEN TAKING DEEP BREATH OESOPHAGITIS NON SPECIFIC ON CT SCAN START ON PROTONIX F/U WITH PCP HYPERTENSION On lisinopril. Will monitor DM TYPE 2 Not well-controlled. Hgb A1C 9.2 07/27/17. Random blood sugar 147. on Lantus + NovoLog. D/C ON HOME MEDS F/U WITH PCP SLEEP APNEA Recently diagnosed. Has outpatient appt with Sleep Medicine. DISCHARGED HOME Total time spent on discharge = 35MINUTES This includes examination of the patient, discharge planning, medication reconciliation, and communication with other providers. Discharge Instructions Discharge Instructions Date of Service Oct 12, 2017. Admission Reason for Admission: Chest Pain; Dvt, Lower Extremity Proximal Acute Discharge Discharge Diagnosis / Problem: LEFT LOWER EXTREMITY ACUTE dvt Discharge Goals Goal(s): Decrease discomfort, Improve function Activity Recommendations Activity Limitations: resume your previous activity . Instructions / Follow-Up Instructions / Follow-Up FOLLOWUP WITH FAMILY DOCTOR ON Oct AT 10:45AM. XARELTO 15MG PO TWICE DAILY X 21 DAYS THEN XARELTO 20MG PO ONCE DAILY. TO TAKE WITH FOOD DURATION OF XARELTO AT LEAST FOR 3 MONTHS THEN FURTHER RECOMMENDATIONS PER FAMILY DOCTOR. Current Hospital Diet Patient's current hospital diet: AHA Diet (Heart Healthy), Diabetes Type 2 Diet Discharge Diet Recommended Diet: AHA Diet (Heart Healthy), Diabetes Type 2 Diet Pending Studies Studies pending at discharge: no Laboratory Results Hemoglobin A1c Test 07/27/17 22:23 Range/Units Estimated Average Glucose 217 mg/dl Hemoglobin A1c 9.2 H 4.5-5.6 % Lipid Panel Test 07/29/17 07:27 Range/Units Triglycerides Level 263 H 0-150 mg/dl Cholesterol Level 207 H 0-200 mg/dl HDL Cholesterol 34 mg/dl Cholesterol/HDL Ratio 6.1 LDL Cholesterol, Calculated 120 mg/dl Medical Emergencies . Who to Call and When: Medical Emergencies: If at any time you feel your situation is an emergency, please call 911 immediately. . Non-Emergent Contact Non-Emergency issues call your: Primary Care Provider
[2017-10-12] MEDS ORDERED: PANT40TA PO (14:14)
--- NOTE | 2017-10-12 14:51 | ECHOCARDIOGRAM REPORT ---
*NOTICE TO RECEIVING [employer] This information is strictly Confidential and protected under [place] law. [place] law prohibits you from making any further disclosure of this information unless further disclosure is expressly permitted by the written consent of the person to whom it pertains or is authorized by law. A general authorization for the release of medical or other information is not sufficient for this purpose. Hospital accepts no responsibility if the information is made available to any other person, INCLUDING THE PATIENT. Interpretation Summary * Name: ROBERT BARAJAS JR Study Date: 10/12/2017 07:40 AM BP: 154/84 mmHg * Patient Location: [facility]\S\N275\S\2 HR: 99 * : 1975 (M/d/yyyy) Gender: Male Height: 75 in * Age: 41 yrs Ethnicity: [place] Weight: 295 lb * Ordering Physician: Hernan Busby * Referring Physician: Self, Referred * Performed By: Tran Her RDCS * * Reason For Study: Chest Pain * BSA: 2.6 m2 * -- Conclusions -- * The left ventricle is normal in size. * Left ventricular systolic function is normal. * Ejection Fraction = 50-55%. * The left ventricular wall motion is normal. * The right ventricular systolic function is normal. * The left atrial size is normal. * Right atrial size is normal. * No significant valvular pathology. Procedure Details * A complete two-dimensional transthoracic echocardiogram was performed (2D, M-mode, Doppler and color flow Doppler). * A contrast injection of Definity was performed to improve assessment of LV function. * Contrast was injected into an intravenous site in the left arm. * One vial of Definity ultrasound contrast was diluted in normal saline to a total volume of 10 ml. A total of '1' ml of solution was administered during imaging. * Lot # [id number] of Definity utilized for procedure. * Expiration date . * The attending nurse who injected the contrast agent was Maureen Gonzalez RN. Left Ventricle * The left ventricle is normal in size. * There is normal left ventricular wall thickness. * Ejection Fraction = 50-55%. * Left ventricular systolic function is normal. * The left ventricular wall motion is normal. Right Ventricle * The right ventricle is grossly normal size. * The right ventricular systolic function is normal. Atria * The left atrial size is normal. * Right atrial size is normal. * There is no evidence of atrial septal defect, but resolution does not allow assessment for a patent foramen ovale. Mitral Valve * The mitral valve is grossly normal. * Significant mitral regurgitation is absent. Tricuspid Valve * The tricuspid valve is not well visualized. * Significant tricuspid regurgitation is absent. Aortic Valve * The aortic valve is tricuspid. The leaflet thickness if normal. There is no aortic stenosis, and no significant insufficiency. * The aortic valve opens well. * There is no significant aortic regurgitation. Pulmonic Valve * The pulmonic valve is not well visualized. Great Vessels * The aortic root and proximal ascending aorta are normal sized. MMode 2D Measurements and Calculations IVSd 1.0 cm IVSs 1.5 cm LVIDd 5.3 cm LVIDs 3.8 cm LVPWd 1.0 cm LVPWs 1.3 cm IVS/LVPW 1.0 FS 28.7 % EDV(Teich) 137.7 ml ESV(Teich) 62.2 ml EF(Teich) 54.8 % EDV(cubed) 152.2 ml ESV(cubed) 55.1 ml EF(cubed) 63.8 % % IVS thick 43.6 % % LVPW thick 30.1 % LV mass(C)d 208.3 grams LV mass(C)dI 80.5 grams/m\S\2 LV mass(C)s 193.9 grams LV mass(C)sI 74.9 grams/m\S\2 SV(Teich) 75.5 ml SI(Teich) 29.2 ml/m\S\2 SV(cubed) 97.1 ml SI(cubed) 37.5 ml/m\S\2 Ao root diam 2.8 cm Ao root area 6.0 cm\S\2 ACS 1.6 cm LA dimension 3.7 cm LA/Ao 1.3 LVAd ap4 36.7 cm\S\2 LVLd ap4 8.6 cm EDV(MOD-sp4) 132.4 ml EDV(sp4-el) 132.7 ml LVAs ap4 23.7 cm\S\2 LVLs ap4 7.8 cm ESV(MOD-sp4) 60.4 ml ESV(sp4-el) 60.9 ml EF(MOD-sp4) 54.4 % EF(sp4-el) 54.1 % LVAd ap2 34.2 cm\S\2 LVLd ap2 8.4 cm EDV(MOD-sp2) 117.8 ml EDV(sp2-el) 117.5 ml LVAs ap2 22.6 cm\S\2 LVLs ap2 7.3 cm ESV(MOD-sp2) 59.1 ml ESV(sp2-el) 59.6 ml EF(MOD-sp2) 49.9 % EF(sp2-el) 49.3 % LVLd %diff -1.83 % EDV(MOD-bp) 126.4 ml LVLs %diff -7.24 % ESV(MOD-bp) 61.3 ml EF(MOD-bp) 51.5 % SV(MOD-sp4) 72.0 ml SI(MOD-sp4) 27.8 ml/m\S\2 SV(MOD-sp2) 58.8 ml SI(MOD-sp2) 22.7 ml/m\S\2 SV(MOD-bp) 65.0 ml SI(MOD-bp) 25.1 ml/m\S\2 SV(sp4-el) 71.9 ml SI(sp4-el) 27.8 ml/m\S\2 SV(sp2-el) 57.9 ml SI(sp2-el) 22.4 ml/m\S\2 Doppler Measurements and Calculations MV E max ernesto 83.0 cm/sec MV A max ernesto 60.9 cm/sec MV E/A 1.4 MV dec time 0.20 sec Ao V2 max 137.2 cm/sec Ao max PG 7.5 mmHg Ao max PG (full) 4.7 mmHg LV V1 max PG 2.8 mmHg LV V1 max 84.4 cm/sec PA V2 max 113.0 cm/sec PA max PG 5.1 mmHg
[2017-10-12] MEDS ORDERED: WARFARIN SOD 5 MG TAB PO SCH (16:00)
[2017-10-16] MEDS ORDERED: POLY335019 PO (05:36)
[2017-10-16] MEDS ORDERED: ATOR10TA82 PO (07:12)
[2017-10-16] MEDS ORDERED: ASPI81TA28 PO (20:12)
[2017-10-16] MEDS ORDERED: ARIP1TAB15 PO (21:00)
[2017-10-16] MEDS ORDERED: NRN400 PO (21:00)
[2017-10-16] MEDS ORDERED: NRN600 PO (21:00)
== END 2017-10-12 13:30 | disposition home or self-care (01) | DRG 301 ==
LOC: EDBD 18:28 → C.EDB 18:29 → C.MED 22:00 → ENRESERV 22:20
PROVIDERS: ADMIT Hospitalist; ATTEND Internal Medicine
DX: I82.812 Embolism and thrombosis of superficial veins of left lower extremity (principal); R07.9 Chest pain, unspecified; I10 Essential (primary) hypertension; E11.9 Type 2 diabetes mellitus without complications; G47.30 Sleep apnea, unspecified; E78.5 Hyperlipidemia, unspecified; F17.200 Nicotine dependence, unspecified, uncomplicated; E66.9 Obesity, unspecified; Z68.36 Body mass index [BMI] 36.0-36.9, adult; Z86.19 Personal history of other infectious and parasitic diseases; Z79.4 Long term (current) use of insulin; Z79.82 Long term (current) use of aspirin; Z79.899 Other long term (current) drug therapy; Z83.3 Family history of diabetes mellitus; Z82.49 Family history of ischemic heart disease and other diseases of the circulatory system; Z83.6 Family history of other diseases of the respiratory system; Z83.79 Family history of other diseases of the digestive system

== ENCOUNTER 2017-10-16 21:08 | Inpatient (IN) | payer OTHER ==
[~2017-10-16] VITALS: Ht 190.5 cm; Wt 136.4 kg
[~2017-10-16 21:08] MED LIST changes: +ARIP1TAB15 PO; +ASPI81TA28 PO; +ATOR10TA82 PO; -CEFT1INJ6 IV; -CEPH-571 PO; -LCTX PO; +NRN400 PO; +NRN600 PO; +PANT40TA PO; +POLY335019 PO; +RIVA1TAB7 PO
[2017-10-16] MEDS ORDERED: MoRPHine SULFATE 10 MG/ML CARP/VIAL IV STA (21:24)
[2017-10-16] MEDS ORDERED: ONDANSETRON INJ 2 MG/ML 2 ML VIAL IV STA (21:24)
[2017-10-16] MEDS ORDERED: OPTIRAY 320 IV PRN (21:30)
[2017-10-16] MEDS ORDERED: CYM60 PO (21:59)
[2017-10-16] MEDS ORDERED: LISI-461 PO (21:59)
[2017-10-16] MEDS ORDERED: NVLGI/PEN SQ (21:59)
[2017-10-16] MEDS ORDERED: INSDGIPEN SQ (21:59)
[2017-10-16] MEDS ORDERED: TRAM-10 PO (21:59)
[2017-10-16] MEDS ORDERED: PANT40TA PO (21:59)
[2017-10-16 22:04] LABS: BASO % 0.5 %; BASO ABS # 0.05 K/uL (0-0.2); EOS % 1.6 %; EOS ABS # 0.16 K/uL (0-0.5); HEMATOCRIT 41.8 % (42-52); IG# 0.06 K/uL (0.00-0.02); LYMPH % 19.3 %; LYMPH ABS # 1.99 K/uL (1.2-3.4); MEAN CELL VOLUME 86.7 fL (80-100); MEAN CORPUSCULAR HGB CONC 33.5 g/dl (32-36); MEAN PLATELET VOLUME 8.9 fL (7.4-10.4); MONO % 8.6 %; MONO ABS # 0.89 K/uL (0.11-0.59); NEUT % 69.4 %; NEUT ABS # 7.17 K/uL (1.4-6.5); PLATELET COUNT 277 K/uL (130-400); RED CELL DISTRIBUTION WIDTH CV 14.2 % (11.5-14.5); RED CELL DISTRIBUTION WIDTH SD 44.4 fL (36.4-46.3); WHITE BLOOD COUNT 10.32 K/uL (4.8-10.8)
[2017-10-16 22:13] LABS: INR 1.1 (0.9-1.1); PTT PATIENT 28.9 SECONDS (21.0-31.0)
[2017-10-16 22:16] LABS: CALCIUM 8.9 mg/dl (8.5-10.1); CREATININE 0.9 mg/dl (0.60-1.40); POTASSIUM 3.6 mmol/L (3.5-5.1)
[2017-10-16 22:16] LABS: ISTAT CREATININE 0.8 mg/dl (0.6-1.3); ISTAT IONIZED CALCIUM 1.16 mmol/l (1.12-1.32); ISTAT POTASSIUM 3.8 mEq/L (3.3-5.0)
--- NOTE | 2017-10-16 22:44 | DIAGNOSTIC IMAGING REPORT ---
(CHEST FOR PE) ANGIO WITH CLINICAL HISTORY: 41 years-old Male presenting with ^eval for PE. TECHNIQUE: Multidetector CT angiography of the chest was performed after administration of intravenous contrast. 3-D volumetric and/or maximum intensity projection (MIP) images were subsequently reconstructed for review. IV contrast: 92 mL of Optiray 320. A dose lowering technique was used consistent with the principles of ALARA (as low as reasonably achievable). COMPARISON: 10/09/2017. CT DOSE (mGy.cm): The estimated cumulative dose is 682.88 mGy.cm. FINDINGS: Bank Runner topogram: Unremarkable. Pulmonary vasculature: The study is suboptimal for the assessment of the pulmonary vascular tree secondary to timing of the contrast bolus. Allowing for limited image quality, no central filling defect to suggest pulmonary embolus. Main pulmonary artery is not enlarged. No flattening of the interventricular septum. No intracardiac filling defect. No reflux of contrast into the hepatic veins. Remaining chest: On soft tissue windows, normal thyroid and thoracic inlet. No axillary, supraclavicular, hilar, or mediastinal lymphadenopathy. Normal aorta. Normal heart size. No pericardial or pleural effusion. Mild distal esophageal wall thickening again suggested. Hepatic steatosis. On lung windows, calcified granuloma noted in the right lower lobe. Mild mosaic attenuation, which could suggest small airways disease. Minimal dependent atelectasis. No other focal infiltrate or nodule. Minimal adherent debris in the upper trachea. On bone windows, degenerative changes of the thoracic spine. IMPRESSION: 1. No evidence of pulmonary embolus. No acute intrathoracic pathology. 2. Hepatic steatosis. 3. Persistent mild distal esophageal wall thickening, which could suggest esophagitis. Electronically signed by: Delgado Diaz M.D. 10/16/2017 10:42 PM Dictated Date/Time: 10/16/2017 10:36 PM
[2017-10-16] MEDS ORDERED: ALUMINUM/MAGNESIUM SUSP 30 ML UDC PO STA (22:56)
[2017-10-16] MEDS ORDERED: LIDOCAINE HCL 2% VISC SOLN 20 ML UDC PO STA (22:56)
[2017-10-16] MEDS ORDERED: CLINDAMYCIN 600 MG/54 ML D5W IV ONE (23:15)
[2017-10-16] MEDS ORDERED: [UNRECOGNIZED DRUG - CODE] PO (23:16)
[2017-10-16] MEDS ORDERED: RIVAROXABAN 20 MG TAB PO STA (23:25)
[2017-10-17] VITALS (10 sets, daily range): BP systolic 106–127; BP diastolic 64–73; PULSE 87–109; TEMP 36.5–36.9; O2SAT 93–96; Ht 190.5 cm; Wt 136.4 kg
--- NOTE | 2017-10-17 00:01 | EMERGENCY ROOM VISIT NOTE ---
History Report prepared by Marianela: Stephie Mosley Under the Supervision of: Dr. Black Douglas M.D. First contact with patient: 21:16 Chief Complaint: EDEMA TO EXTREMITY Stated Complaint: SEVERE LEFT FOOT/LEG PAIN, CHEST PAIN Nursing Triage Summary: pt reports started with L foot and leg pain and swelling that radiates up into thigh and L chest reports increased sob with ambulation pt Dx with blood clot inL leg 1 week ago on xeralto History of Present Illness The patient is a 41 year old male who presents to the Emergency Room with complaints of worsening swelling and pain to his left foot starting today. The patient states that he had a DVT in his left leg recently. He notes that he was put on Xarelto and has been taking it. He states that he also just had surgery on his foot by Dr Shafer to drain a cyst. The patient states that his foot looks a lot better, but he has a shooting pain going up his leg. He reports that this feels similar to when he had pain with his DVT seven days ago. He notes that the pain did go away from the first time and has returned. The patient complains of chest pain and describes it like someone is "squeezing his chest." He notes that he is short of breath as well. He states that he does not feel like he has had a fever and denies having a cough. The patient notes that he is a smoker. He states that this is the same chest pain he had when he was admitted for his DVT and notes that the chest pain went away with the leg pain from the last visit. He denies a history of heart disease. Source of History: patient Onset: today Position: foot (left) Quality: other (swollen, shooting) Timing: worsening Associated Symptoms: + chest pain, + SOB, No fevers, No cough Review of Systems See HPI for pertinent positives & negatives. A total of 10 systems reviewed and were otherwise negative. Past Medical & Surgical Medical Problems: (1) Depression (2) Depression (3) DM type 2 (diabetes mellitus, type 2) (4) DVT, lower extremity, proximal, acute (5) Foot abscess (6) Gastroparesis (7) HTN (hypertension) (8) IBS (irritable bowel syndrome) (9) Intellectual disability (10) Intellectual disability (11) Lumbago (12) Mental retardation (13) Nicotine abuse (14) Nicotine dependence (15) NSVT (nonsustained ventricular tachycardia) (16) Obesity (17) Obstructive sleep apnea (18) Sepsis (19) Stroke-like symptoms Surgical Problems: (1) S/P left knee arthroscopy (2) S/P tonsillectomy Social History Problems: (1) Alcohol abuse Family History Cancer Diabetes mellitus MOTHER GRANDMOTHER UNCLE AUNT Gallbladder disease Heart disease Hypertension MOTHER FATHER Lung disease Social History Smoking Status: Current Every Day Smoker Alcohol Use: heavy Drug Use: none Marital Status: Housing Status: lives with family Occupation Status: employed, other Current/Historical Medications Scheduled Aripiprazole (Aripiprazole), 10 MG PO HS Aspirin (Aspirin Ec), 81 MG PO DAILY Atorvastatin (Lipitor), 10 MG PO DAILY Duloxetine HCl (Duloxetine HCl), 60 MG PO DAILY Gabapentin (Gabapentin), 400 MG PO TID Gabapentin (Gabapentin), 600 MG PO TID Insulin Aspart (Novolog Flexpen), 28 UNITS SC AC Insulin Glargine (Lantus Solostar), 50 UNITS SC BID Lisinopril (Lisinopril), 10 MG PO DAILY Pantoprazole (Protonix), 40 MG PO DAILY Rivaroxaban (Xarelto Starter Pack 15 & 20 mg), 15 MG PO UD Scheduled PRN Nicotine Polacrilex (Nicorelief), 1 PIECE PO UD PRN for Nicotine Craving Polyethylene Glycol 3350 (Miralax), 17 GM PO DAILY PRN for Constipation Tramadol (Ultram), 25 MG PO Q8H PRN for Pain Allergies Coded Allergies: Cephalosporins (Verified Allergy, Unknown, CECLOR- RXN UNKNOWN. A CHILD. WILLING TO TRY [facility]IN, 10/09/17) NSAIDs (Verified Adverse Reaction, Unknown, gastroparesis, kidney problems , 10/09/17) Physical Exam Vital Signs Date Time Temp Pulse Resp B/P (MAP) Pulse Ox O2 Delivery O2 Flow Rate FiO2 10/16/17 23:36 112 18 126/57 95 10/16/17 22:40 114 18 116/76 96 Room Air 10/16/17 22:03 158 10/16/17 21:51 95 Room Air 10/16/17 21:51 117 10/16/17 21:14 36.5 129 20 122/77 96 Room Air Physical Exam Constitutional: Vital signs reviewed. Eyes: Pupils are equal round reactive to light. Conjunctiva are noninjected. ENT: Pharynx is clear without erythema or exudate. Mucous membranes are moist. Neck supple without meningeal signs. Respiratory: Clear to auscultation bilaterally. Breath sounds are equal bilaterally. Cardiovascular: Regular rate and rhythm. No rubs or gallops. GI: Soft, nondistended and nontender. Bowel sounds are present. Musculoskeletal: No peripheral edema. Mild redness with increased warmth to the left foot with diffuse tenderness throughout the foot dorsally and the entire lower leg. Distal pulses intact. Diffuse swelling to the dorsum of the foot. Reproducible chest wall pain on palpation. Integumentary: No cyanosis. Neurological: The patient is awake and alert. No focal deficits. Psychiatric: Normal affect. Medical Decision & Procedures ER Provider Diagnostic Interpretation: Radiology results as stated below per my review and the radiologist's interpretation: (CHEST FOR PE) ANGIO WITH CLINICAL HISTORY: 41 years-old Male presenting with ^eval for PE. TECHNIQUE: Multidetector CT angiography of the chest was performed after administration of intravenous contrast. 3-D volumetric and/or maximum intensity projection (MIP) images were subsequently reconstructed for review. IV contrast: 92 mL of Optiray 320. A dose lowering technique was used consistent with the principles of ALARA (as low as reasonably achievable). COMPARISON: 10/09/2017. CT DOSE (mGy.cm): The estimated cumulative dose is 682.88 mGy.cm. FINDINGS: Powertrain Engineer topogram: Unremarkable. Pulmonary vasculature: The study is suboptimal for the assessment of the pulmonary vascular tree secondary to timing of the contrast bolus. Allowing for limited image quality, no central filling defect to suggest pulmonary embolus. Main pulmonary artery is not enlarged. No flattening of the interventricular septum. No intracardiac filling defect. No reflux of contrast into the hepatic veins. Remaining chest: On soft tissue windows, normal thyroid and thoracic inlet. No axillary, supraclavicular, hilar, or mediastinal lymphadenopathy. Normal aorta. Normal heart size. No pericardial or pleural effusion. Mild distal esophageal wall thickening again suggested. Hepatic steatosis. On lung windows, calcified granuloma noted in the right lower lobe. Mild mosaic attenuation, which could suggest small airways disease. Minimal dependent atelectasis. No other focal infiltrate or nodule. Minimal adherent debris in the upper trachea. On bone windows, degenerative changes of the thoracic spine. IMPRESSION: 1. No evidence of pulmonary embolus. No acute intrathoracic pathology. 2. Hepatic steatosis. 3. Persistent mild distal esophageal wall thickening, which could suggest esophagitis. Electronically signed by: Delgado Diaz M.D. 10/16/2017 10:42 PM Dictated Date/Time: 10/16/2017 10:36 PM US VENOUS LEFT LOWER EXTREMITY: No DVT or fluid collection. Radiologist: Jae Medina MD Study ready at 23:25 and initial results transmitted at 23:39. Laboratory Results 10/16/17 21:35 Red Blood Count 4.82, Mean Corpuscular Volume 86.7, Mean Corpuscular Hemoglobin 29.0, Mean Corpuscular Hemoglobin Concent 33.5, Mean Platelet Volume 8.9, Neutrophils (%) (Auto) 69.4, Lymphocytes (%) (Auto) 19.3, Monocytes (%) (Auto) 8.6, Eosinophils (%) (Auto) 1.6, Basophils (%) (Auto) 0.5, Neutrophils # (Auto) 7.17, Lymphocytes # (Auto) 1.99, Monocytes # (Auto) 0.89, Eosinophils # (Auto) 0.16, Basophils # (Auto) 0.05 10/16/17 21:35 Test 10/16/17 21:35 10/16/17 21:55 10/16/17 22:04 White Blood Count 10.32 K/uL (4.8-10.8) Red Blood Count 4.82 M/uL (4.7-6.1) Hemoglobin 14.0 g/dL (14.0-18.0) Hematocrit 41.8 % (42-52) Mean Corpuscular Volume 86.7 fL (80-100) Mean Corpuscular Hemoglobin 29.0 pg (25-34) Mean Corpuscular Hemoglobin Concent 33.5 g/dl (32-36) Platelet Count 277 K/uL (130-400) Mean Platelet Volume 8.9 fL (7.4-10.4) Neutrophils (%) (Auto) 69.4 % Lymphocytes (%) (Auto) 19.3 % Monocytes (%) (Auto) 8.6 % Eosinophils (%) (Auto) 1.6 % Basophils (%) (Auto) 0.5 % Neutrophils # (Auto) 7.17 K/uL (1.4-6.5) Lymphocytes # (Auto) 1.99 K/uL (1.2-3.4) Monocytes # (Auto) 0.89 K/uL (0.11-0.59) Eosinophils # (Auto) 0.16 K/uL (0-0.5) Basophils # (Auto) 0.05 K/uL (0-0.2) RDW Standard Deviation 44.4 fL (36.4-46.3) RDW Coefficient of Variation 14.2 % (11.5-14.5) Immature Granulocyte % (Auto) 0.6 % Immature Granulocyte # (Auto) 0.06 K/uL (0.00-0.02) Prothrombin Time 11.6 SECONDS (9.0-12.0) Prothromb Time International Ratio 1.1 (0.9-1.1) Activated Partial Thromboplast Time 28.9 SECONDS (21.0-31.0) Partial Thromboplastin Ratio 1.1 Est Creatinine Clear Calc Drug Dose 149.8 ml/min Estimated GFR () 120.8 Estimated GFR (Non- 104.2 BUN/Creatinine Ratio 20.7 (10-20) Calcium Level 8.9 mg/dl (8.5-10.1) Bedside Troponin I < 0.030 ng/ml (0-0.045) Bedside Hemoglobin 13.9 g/dl (14.0-18.0) Bedside Hematocrit 41 % (42-52) Bedside Sodium 140 mEq/L (135-144) Bedside Potassium 3.8 mEq/L (3.3-5.0) Bedside Chloride 102 mEq/L (101-112) Bedside Total CO2 25 mEq/l (24-31) Anion Gap 18.0 mmol/L (16-25) Bedside Blood Urea Nitrogen 18 mg/dl (7-18) Bedside Creatinine 0.8 mg/dl (0.6-1.3) Bedside Glucose (other) 203 mg/dl (70-99) Bedside Ionized Calcium (Boubacar) 1.16 mmol/l (1.12-1.32) Laboratory results as reviewed by me. Medications Administered Medications (Trade) Dose Ordered Sig/Mario Alberto Route Start Time Stop Time Status Last Admin Dose Admin Morphine Sulfate (MoRPHine SULFATE INJ) 6 mg NOW STAT IV 10/16/17 21:24 10/16/17 21:27 DC 10/16/17 21:59 6 MG Ondansetron HCl (Zofran Inj) 4 mg NOW STAT IV 10/16/17 21:24 10/16/17 21:27 DC 10/16/17 21:58 4 MG Lidocaine HCl (Viscous Lidocaine 2% Soln) 10 ml NOW STAT PO 10/16/17 22:56 10/16/17 22:57 DC 10/16/17 23:27 10 ML Al Hydroxide/Mg Hydroxide (Maalox Susp) 30 ml NOW STAT PO 10/16/17 22:56 10/16/17 22:57 DC 10/16/17 23:27 30 ML Clindamycin Phosphate (Cleocin 600mg/ 54ml D5W) 600 mg ONE ONCE IV 10/16/17 23:15 10/16/17 23:16 DC 10/16/17 23:15 600 MG Rivaroxaban (Xarelto Tab) 20 mg DAILY STAT PO 10/16/17 23:25 10/16/17 23:26 DC 10/16/17 23:49 20 MG ECG Indication: chest pain Rate (beats per minute): 115 Rhythm: sinus tachycardia Findings: other (limited interpertation due to motion artifact, no obvious ST elevations) Comparison ECG Date: Repeat Change: Sinus tachycardia at a rate of 116. No ST elevation. No widening of the QRS. No ectopy. ED Course 2118: The patient was evaluated in room B5. A complete history and physical exam was performed. 2123: Ordered Zofran Inj 4 mg IV, Morphine Sulfate 6 mg IV. 2204: I reevaluated the patient because the nurses stated that he looked like he was having multiple episodes of ventricular tachycardia. When I evaluated the patient and a lead was changed on the monitor, it immediately showed sinus complexes even thought the original showing on the monitor was ventricular tachycardia. The patient states that the machine goes off every time he has a shaking fit. Upon review of the strips, it is consistent with motions artifact and not ventricular tachycardia or supraventricular tachycardia. We repeated an EKG. 6: Ordered Maalox Susp 30 ml PO, Lidocaine HCL 10 ml PO. 2315: Ordered Clindamycin Phosphate 600 mg IV. 2321: I discussed the patient's case with Dr. Shafer. He agrees that the patient should be admitted to medicine. 2325: Ordered Rivaroxaban 20 mg PO. 2326: I spoke with Dr. Kendall. We discussed the patient and his results. The patient will be further evaluated by Dr. Kendall. 2327: I reevaluated the patient and he was doing well. Medical Decision This is a 41-year-old male who presents with chest pain and leg pain. Differential diagnosis includes DVT, pulmonary embolism, unstable angina, ND, esophagitis, cellulitis. I did perform a limited focused review of portions of the patient's old chart on the electronic medical record. The patient was admitted October 09 for a DVT in his left leg. It was nonocclusive thrombus in the distal left superficial femoral vein. He had a limited CTA of the chest which showed no pulmonary emboli and esophageal thickening consistent with esophagitis. I did evaluate the patient as noted above. The patient is presenting with worsening leg pain which started today and chest pain. He has a history of known DVT and takes Xarelto. He does have evidence of cellulitis to his left leg. IV access was established. The patient was placed on a continuous front desk monitor. He was treated with IV morphine and Zofran. I did order and personally review the patient's 12-lead EKG as described above. I did order and review the patient's blood work as noted in the electronic medical record. Troponin is negative. I did order a CT of the chest to rule out PE. I did review the images myself as well as the radiology report as described above. This did not show any evidence of pulmonary embolism. He was given a GI cocktail. I did order a Doppler of the left leg which showed no evidence of DVT or fluid collection. During his stay in the emergency department I was called to the bedside by the nurse. She had noted a waveform concerning for ventricular tachycardia and ventricular fibrillation. When I arrived in room the patient was awake and alert and the monitor showed what appeared to be ventricular fibrillation. The patient was complaining of continued chest pain but was awake and alert and talking. He was shaking as well. The lead was changed on a monitor to lead one from lead 2 and the waveform immediately changed to sinus rhythm. A repeat twelve-lead EKG was obtained which showed no widening of the QRS or any ectopy. I did review the events on the monitor with the playground monitor. Most of the episodes appeared to show waveforms concerning for ventricular tachycardia and fibrillation. When I questioned the patient and his rating examiner about this, they stated that the monitor would go off rather frequently an alarm when he was having these shaking episodes. I reviewed his chart again and noted that he had concern for possible ventricular tachycardia in 2015. He was evaluated by the oracle fusion developer at that time who felt that his symptoms were secondary to artifact and not true ventricular tachycardia. At this time it seems that his history and my findings are consistent with artifact and not ventricular tachycardia. I did discuss the test results with the patient. I did recommend hospitalization and treatment for his cellulitis. He was given IV clindamycin based on his prior cultures from August. I did discuss case with Dr. Shafer of orthopedics who agreed with my management. I did discuss the case with the hospitalist and corrections caseworker. Medication Reconcilliation Current Medication List: was personally reviewed by me Blood Pressure Screening Patient's blood pressure: Elevated blood pressure Blood pressure disposition: Elevated BP felt to be situational Consults Time Called: 2300 Consulting Physician: Dr. Shafer- Orthopedics Returned Call: [phone] I discussed the patient's case with Dr. Shafer. He agrees that the patient should be admitted to medicine. Additional Consults: Time Called: 232 Consulted Physician: Dr. Kendall- Hospitalist Returned Call: [phone] Additional Comments: I spoke with Dr. Kendall. We discussed the patient and his results. The patient will be further evaluated by Dr. Kendall. Impression Primary Impression: Cellulitis of left foot Additional Impression: Acute chest pain Scribe Attestation The scribe's documentation has been prepared under my direct and personally reviewed by me in its entirety. I confirm that the note above accurately reflects all work, treatment, procedures, and medical decision making performed by me. Departure Information Dispostion Being Evaluated By Hospitalist Referrals No Doctor, Assigned (PCP) Patient Instructions My [facility] Problem Qualifiers
[2017-10-17] MEDS ORDERED: NITROGLYCERIN 0.4 MG SL PER TAB CHARGE ONE (00:53)
[2017-10-17] MEDS ORDERED: GLUCOSE 10 TABS/TUBE PO PRN (01:00)
[2017-10-17] MEDS ORDERED: ALUMINUM/MAGNESIUM SUSP 30 ML UDC PO PRN (01:00)
[2017-10-17] MEDS ORDERED: GLUCAGON FOR INJ 1 MG VIAL SQ PRN (01:00)
[2017-10-17] MEDS ORDERED: DEXTROSE 50% 50 ML SYR IV PRN (01:00)
[2017-10-17] MEDS ORDERED: GLUCOSE 40% GEL 15 GM TUBE PO PRN (01:00)
[2017-10-17] MEDS ORDERED: ACETAMINOPHEN 325 MG TAB PO PRN (01:15)
[2017-10-17] MEDS ORDERED: ONDANSETRON INJ 2 MG/ML 2 ML VIAL IV PRN (01:15)
[2017-10-17] MEDS ORDERED: NITROGLYCERIN 0.4 MG SL PER TAB CHARGE SL PRN (01:15)
[2017-10-17] MEDS ORDERED: PANTOprazole INJ 40 MG in SYRINGE 0 ML IV STA (02:19)
[2017-10-17] MEDS ORDERED: PHARMACY GLYCEMIC MGMT CONSULT PRN (02:23)
[2017-10-17] MEDS ORDERED: PIPERACILL/TAZOBAC CONSULT ACTIVE PRN (02:26)
[2017-10-17] MEDS ORDERED: VANCOMYCIN CONSULT ACTIVE PRN (02:45)
[2017-10-17] MEDS ORDERED: PIPERACILL/TAZOBAC IV 4.5 GM in DEXTROSE 5% 100ML IV ONE (02:45)
[2017-10-17] MEDS ORDERED: VANCOMYCIN INJ 2,750 MG in SODIUM CHLORIDE 0.9% 500ML 500 ML IV SCH (03:00)
[2017-10-17] MEDS: SODIUM CHLORIDE 0.9% 1000ML 1,000 ML IV SCH ×3 (03:02→23:57)
[2017-10-17] MEDS ORDERED: INSULIN GLARGINE SOLOSTAR 100 UNITS/ML 3 ML PEN SC STA (03:08)
[2017-10-17 04:31] LABS: CKMB 9.8 ng/ml (0.5-3.6)
--- NOTE | 2017-10-17 05:15 | DIAGNOSTIC IMAGING REPORT ---
L VENOUS DOPP LOWER EXT UNILAT CLINICAL HISTORY: eval for dvt pain. Edema. TECHNIQUE: Venous Doppler COMPARISON STUDY: 10/09/2017 FINDINGS: Normal study IMPRESSION: Normal study The above report was generated using voice recognition software. It may contain grammatical, syntax or spelling errors. Electronically signed by: Colt Sousa M.D. 10/17/2017 5:13 AM Dictated Date/Time: 10/17/2017 5:12 AM
--- NOTE | 2017-10-17 08:15 | HISTORY & PHYSICAL EXAMINATION ---
DATE OF ADMISSION: 10/17/2017 TIME: 1:08 a.m. The patient is a pleasant ____. DICTATION ENDS HERE.
[2017-10-17] MEDS: HYDROmorphone INJ 0.5 MG/0.5 ML SYR IV PRN ×3 (08:31→17:33)
[2017-10-17] MEDS: PIPERACILL/TAZOBAC IV 4.5 GM in DEXTROSE 5% 100ML IV SCH ×3 (08:31→23:57)
[2017-10-17] MEDS: GABAPENTIN 600 MG TAB PO SCH ×3 (08:33→21:28)
[2017-10-17] MEDS: ATORVASTATIN 10 MG TAB PO SCH (08:33)
[2017-10-17] MEDS: RIVAROXABAN TAB 15 MG TAB PO SCH ×2 (08:33→21:29)
[2017-10-17] MEDS: ASPIRIN 81 MG ECTAB PO SCH (08:34)
[2017-10-17] MEDS: DULOXETINE HCL 60 MG CAP PO SCH (08:34)
[2017-10-17] MEDS: GABAPENTIN 400 MG CAP PO SCH ×3 (08:34→21:28)
[2017-10-17] MEDS: DOCUSATE SODIUM/SENNA 50/8.6MG TAB PO SCH (08:35)
[2017-10-17] MEDS: PANTOprazole INJ 40 MG in SYRINGE 0 ML IV SCH (08:36)
[2017-10-17] MEDS: INSULIN ASPART 100 UNITS/ML 3 ML PEN SC SCH ×4 (08:40→21:00)
--- NOTE | 2017-10-17 08:47 | HISTORY & PHYSICAL EXAMINATION ---
DATE OF ADMISSION: 10/17/2017 TIME: 1:10 a.m. HISTORY OF PRESENT ILLNESS: The patient is a very pleasant 41-year-old male with a history of diabetes on insulin, hypertension, dyslipidemia, recent left infection recently diagnosed left lower extremity deep venous thrombosis, presenting with increasing left foot swelling, pain and redness x2-3 days. The patient follows with Dr. Valencia for primary care and Dr. Pino for ID. The patient was recently admitted to [facility], discharged on 10/12/2017, after being diagnosed with the left lower extremity deep venous thrombosis, currently on Xarelto. He follows up with Dr. Pino and was seen apparently a week ago and at that time was advised to discontinue the IV antibiotics and continue his p.o. antibiotic, the names of which the patient cannot recall but on the chart it says Bactrim. For the past 3 days, the patient noticed increased redness, swelling, tenderness and pain on the left foot again. Denies fever, chills, nausea but does have nausea and vomiting. Today the patient went to the store and upon going home noticed left-sided chest pain, pressure "someone sitting on my chest," nonradiating. No shortness of breath, palpitations, nausea, vomiting, or dizziness. Symptoms persisted prompting ER consult. At the ER, the patient's blood pressure on arrival was 122/77, pulse rate of 129, respiratory rate of 14, temperature of 36.5, saturating 96% on room air. The patient's CT chest did not show any pulmonary embolism. Cardiac markers x1 is negative. EKG did not show any signs of ischemia. The patient was given the following medications at the ER including morphine, Zofran, clindamycin and Maalox, lidocaine. On my exam, the patient is lying in bed, resting, not in distress. He states that his left-sided chest pain is about the same, nonradiating. No shortness of breath, dizziness, palpitations, nausea, or vomiting on my exam. The left foot pain is somewhat better after being given morphine. No other symptoms noted. REVIEW OF SYSTEMS: Ten systems reviewed and negative except for the ones mentioned above. PAST MEDICAL HISTORY: Diabetes, hypertension, dyslipidemia, depression, DAMION, gastroparesis, irritable bowel syndrome, recent DVT left lower extremity, superficial femoral vein and recent left foot infection. MEDICATIONS: Lantus 50 mg b.i.d., lisinopril 10 mg daily, aspirin 81 mg daily, atorvastatin 40 mg daily, Xarelto 30 mg daily for 15 days, then 20 mg daily, Bactrim double strength twice a day, gabapentin 1000 mg t.i.d., Cymbalta 60 mg daily, Abilify 10 mg daily, tramadol 50 mg q. 6h. p.r.n. PAST SURGICAL HISTORY: Colonoscopy, EGD, knee arthroscopy, removal of tonsils, I&D of the left foot in August 2017. PERSONAL AND SOCIAL HISTORY: He is a current every day smoker, a pack a day. Uses alcohol occasionally. No drug use. FAMILY HISTORY: Mother diabetes; father, hypertension; mother endocrine disorder; mother, hypertension; father, lung disorder. PHYSICAL EXAMINATION: VITAL SIGNS: Blood pressure is 126/57, pulse 112, respiratory rate 14, temperature 36.5, saturating 95% on room air. GENERAL: The patient is awake, alert, oriented x3, not in distress, speaks in sentences. No accessory muscle use. HEAD AND NECK: Atraumatic and normocephalic. Normal pupils. Full EOMs. No icterus. [place] conjunctivae. ENT: Grossly normal. NECK: No JVD, no lymphadenopathy or thyromegaly. HEART: Normal rate. Regular rhythm. Good S1 and S2. No murmurs. No tenderness to chest palpation. LUNGS: Clear breath sounds bilaterally. No rales or wheezes. EXTREMITIES: Right lower extremity essentially normal. Left lower extremity, left foot, positive for moderate erythema and edema, and exquisite tenderness on light palpation. There is no seepage or drainage. No fluctuant mass that I could appreciate, some redness and erythema extends up to at least his distal left lower leg and ankles. NEUROLOGIC: No gross focal motor or sensory deficits. LABORATORY DATA: White count is 10.3, hemoglobin 13.9, platelet count is 277. Chemistry: Sodium 140, potassium 3.8, BUN is 19, creatinine is 0.9, random glucose 203, troponin is less than 0.030. Coagulation, INR 1.1. Blood cultures are pending. IMAGING: CT chest angiogram showing no evidence of pulmonary embolism. No acute intrathoracic pathology, hepatic steatosis and persistent mild distal esophageal wall thickening which is suggestive of esophagitis. ASSESSMENT AND PLAN: This is a pleasant 41-year-old male with a history of diabetes, hypertension, dyslipidemia, smoker, recent deep venous thrombosis of left lower extremity, recent left foot infection presenting with increasing left foot pain and chest pain. 1. Possible recurrence of left foot infection, history of recent left foot infection status post irrigation and debridement August 2017 with osteomyelitis. Left lower extremity deep venous thrombosis on Xarelto. The patient has been transitioned to IV antibiotics to p.o. antibiotics last week and seems to have worsening of the left foot with redness, swelling and pain, which may represent reinfection of the foot. CT of the foot with contrast was ordered but currently has to be deferred because the patient has just received full dose an IV iodine contrast for CT of the chest. We will hold off on this for now, place him on empiric vancomycin and Zosyn. We will consult infectious disease whom the patient follows up with as an outpatient. We will manage the pain with IV Dilaudid for now and tramadol and deescalate based on his response. We will place him on Senokot S daily to prevent constipation. 2. Left-sided chest pain, rule out acute cardiac syndrome. Risk factors include diabetes, hypertension, smoker. We will check cardiac markers x2 more sets. Repeat EKG in the morning. The patient had just an echocardiogram last couple of weeks ago and we will defer repeat echo to cardiology service. Cardiology service will be consulted for him. Possible esophagitis related chest pain. This has been seen on the CAT scan of the chest today. He uses Protonix 40 mg daily. We will change it to Protonix 40 mg IV twice a day for now and p.r.n. Maalox. If chest pain is deemed to be noncardiac, may need to have cardiology consultation for this. Pulmonary embolism has been ruled out with a negative CT angiogram of the chest. 3. Recent left lower extremity superficial vein deep venous thrombosis, currently on Xarelto. We will continue his Xarelto 30 mg daily x15 days, then 20 mg daily. 4. Diabetes type 2. Continue Lantus [address] on insulin sliding scale and will consult pharmacy for glycemic management. 5. Hypertension. Blood pressure is on the lower side. We will hold lisinopril for now and monitor, usually takes lisinopril 10 mg daily. 6. Obstructive sleep apnea. Continue BiPAP. 7. Depression, stable. Continue Cymbalta and Abilify. 8. Deep venous thrombosis prophylaxis. The patient already had deep venous thrombosis and is currently on therapeutic therapy Xarelto. 9. Full code as per patient. 10. Disposition: Pending. Anticipate discharge home when medically stable, but will need PT and OT evaluation. MTDD
--- NOTE | 2017-10-17 08:49 | Progress Note ---
Progress Note Date of Service Oct 17, 2017. Progress Note ID Consult Dictated #[id number] A/P: 1.Left foot abscess s/p I&D -No evidence for worsening infection, wound healed -Can follow off of abx, pt scheduled to follow in wound center next week -thank you
[2017-10-17] MEDS ORDERED: INSULIN GLARGINE SOLOSTAR 100 UNITS/ML 3 ML PEN SC SCH (09:00)
--- NOTE | 2017-10-17 09:56 | INFECT. DISEASE CONSULTATION ---
DATE OF CONSULTATION: 10/17/2017 HISTORY OF PRESENT ILLNESS: This is a 41-year-old gentleman who was previously being followed by infectious diseases for a left foot infection. He was on a prolonged course of Rocephin, which recently stopped. He did have an abscess between the third and fourth toe, which grew MSSA on September 01. He has subsequently been following at the wound center. He recently had an admission to the hospital from the through the 12 of October where he was diagnosed with DVT and was started on blood thinner for this. He states he had his last appointment with the wound center on October 14 and was doing well. He has a followup appointment scheduled there on Wednesday. He was admitted yesterday with leg pain. He denies any drainage from the leg. He states the wound has completely closed. His leg pain is still sore, but he states it is somewhat improved. He denies any fevers or chills. PAST MEDICAL HISTORY: Significant for depression, type 2 diabetes, history of DVT acutely, foot abscess, which was drained in August, gastroparesis, hypertension, irritable bowel syndrome, obesity, obstructive sleep apnea. PAST SURGICAL HISTORY: Significant for left knee surgery, tonsillectomy and foot surgery as mentioned above. FAMILY HISTORY: Noncontributory. SOCIAL HISTORY: He does smoke cigarettes. He does have a history of alcohol use. Significant for tobacco use and alcohol use. He denies any drug use. CURRENT MEDICATIONS: Include Abilify, Protonix, Ecotrin, Lipitor, Cymbalta, Neurontin, Lantus, Senokot, Xarelto, Zosyn, vancomycin, Tylenol, Dilaudid, Ultram, Maalox. PHYSICAL EXAMINATION: VITAL SIGNS: He is afebrile, pulse 97, respiratory rate 20, blood pressure is 128/72, oxygen saturation is 95% on room air. GENERAL: He is awake, alert and oriented x3. He is in no acute distress. HEENT: Mucous membranes are moist. Extraocular muscles are intact. HEART: Regular. LUNGS: Clear. ABDOMEN: Soft and nontender. EXTREMITIES: There is no lower extremity edema. Examination of the left foot reveals significant improvement. The wound is healed. There is no open area. There is no drainage. There is no surrounding erythema, warmth, or tenderness. LABORATORY STUDIES: CBC reveals a white blood cell count of 10.3, hemoglobin 13.9, platelets are 277. Chemistry reveals a sodium of 140, potassium 3.8, chloride 102, bicarbonate 25, BUN 18, creatinine is 0.8. CK is elevated at 509. No blood cultures are pending. There is no imaging to review. ASSESSMENT AND PLAN: History of left foot infection. I do not see any evidence of recurrent infection. At this time, I would suggest holding the patient off his antibiotics. He does have wound care. Followup scheduled.
[2017-10-17 11:18] LABS: CKMB 7.8 ng/ml (0.5-3.6)
[2017-10-17] MEDS: VANCOMYCIN INJ 2,000 MG in SODIUM CHLORIDE 0.9% 500ML 500 ML IV SCH ×2 (12:05→17:24)
[2017-10-17] MEDS: TRAMADOL HCL 50 MG TAB PO PRN (12:11)
--- NOTE | 2017-10-17 13:10 | ECHOCARDIOGRAM REPORT ---
*NOTICE TO RECEIVING CONSTITUTION PARTY AGENCY This information is strictly Confidential and protected under [place] law. [place] law prohibits you from making any further disclosure of this information unless further disclosure is expressly permitted by the written consent of the person to whom it pertains or is authorized by law. A general authorization for the release of medical or other information is not sufficient for this purpose. Hospital accepts no responsibility if the information is made available to any other person, INCLUDING THE PATIENT. Interpretation Summary * Name: ROBERT BARAJAS JR Study Date: 10/17/2017 11:26 AM BP: 120/72 mmHg * Patient Location: .2T\S\E220\S\1 HR: 97 * : 1975 (M/d/yyyy) Gender: Male Height: 75 in * Age: 41 yrs Ethnicity: [place] Weight: 272 lb * Ordering Physician: Eugenio Salvador * Referring Physician: Self, Referred * Performed By: Elsie Fang RCS * * Reason For Study: Chest Pain * BSA: 2.5 m2 * -- Conclusions -- * The study was technically limited, but adequate for the referral indication. * Sinus tachycardia at 105 bpm was present during the echocardiogram. * There is mild concentric left ventricular hypertrophy. * No regional wall motion abnormalities noted. * The left ventricle is hyperdynamic. * Ejection Fraction = 65-70%. * The right ventricle is mildly dilated. * The right ventricular systolic function is normal. * Doppler findings do not suggest pulmonary hypertension. * There is no pericardial effusion. * Compared to the prior recent echocardiogram dated 10/12/17, sinus tachycardia is now present. Procedure Details * A complete two-dimensional transthoracic echocardiogram was performed (2D, M-mode, Doppler and color flow Doppler). * The study was technically difficult. * There were technical limitations due to patient'sbody habitus * A contrast injection of Definity was performed to improve assessment of LV function. * Contrast was injected into an intravenous site in the left arm. * One vial of Definity ultrasound contrast was diluted in normal saline to a total volume of 10 ml. A total of '1' ml of solution was administered during imaging. * Lot # [id number] of Definity utilized for procedure. * Expiration date . * The attending nurse who injected the contrast agent was Will Saxena RN. Left Ventricle * The left ventricle is normal in size. * There is mild concentric left ventricular hypertrophy. * The left ventricle is hyperdynamic. * Ejection Fraction = 65-70%. * The left ventricular wall motion is normal. * No regional wall motion abnormalities noted. Right Ventricle * The right ventricle is mildly dilated. * The right ventricular systolic function is normal. Atria * The left atrial size is normal. * Right atrial size is normal. * There is no evidence of atrial septal defect, but resolution does not allow assessment for a patent foramen ovale. Mitral Valve * The mitral valve is normal. * There is no mitral valve stenosis. * Significant mitral regurgitation is absent. Tricuspid Valve * The tricuspid valve is normal. * There is no tricuspid stenosis. * Significant tricuspid regurgitation is absent. * Doppler findings do not suggest pulmonary hypertension. Aortic Valve * The aortic valve is trileaflet. * Aortic stenosis is absent. * There is no significant aortic regurgitation. Pulmonic Valve * The pulmonary valve is not well seen, but the Doppler examination is normal without significant regurgitation or stenosis. Great Vessels * The aortic root and proximal ascending aorta are normal sized. Pericardium/Pleural * There is no pericardial effusion. Great Vessels * Normal inferior vena cava diameter and respiratory variation suggests normal central venous pressure. * Normal inferior vena cava size and collapsability with sniff indicates a normal right atrial pressure of 3 mmHg MMode 2D Measurements and Calculations IVSd 1.2 cm IVSs 1.5 cm LVIDd 3.9 cm LVIDs 2.4 cm LVPWd 1.1 cm LVPWs 1.4 cm IVS/LVPW 1.2 FS 37.5 % EDV(Teich) 64.0 ml ESV(Teich) 20.3 ml EF(Teich) 68.2 % EDV(cubed) 57.2 ml ESV(cubed) 14.0 ml EF(cubed) 75.6 % % IVS thick 18.9 % % LVPW thick 31.1 % LV mass(C)d 148.8 grams LV mass(C)dI 59.5 grams/m\S\2 LV mass(C)s 112.8 grams LV mass(C)sI 45.1 grams/m\S\2 SV(Teich) 43.7 ml SI(Teich) 17.5 ml/m\S\2 SV(cubed) 43.2 ml SI(cubed) 17.3 ml/m\S\2 Ao root diam 3.5 cm Ao root area 9.5 cm\S\2 ACS 1.5 cm LA dimension 3.8 cm asc Aorta Diam 2.6 cm LA/Ao 1.1 EDV(MOD-sp4) 130.0 ml ESV(MOD-sp4) 65.0 ml EF(MOD-sp4) 50.0 % EDV(MOD-sp2) 150.0 ml ESV(MOD-sp2) 66.0 ml EF(MOD-sp2) 56.0 % SV(MOD-sp4) 65.0 ml SI(MOD-sp4) 26.0 ml/m\S\2 SV(MOD-sp2) 84.0 ml SI(MOD-sp2) 33.6 ml/m\S\2 Doppler Measurements and Calculations MV E max ernesto 107.0 cm/sec MV A max ernesto 79.2 cm/sec MV E/A 1.4 MV P1/2t max ernesto 122.9 cm/sec MV P1/2t 53.7 msec MVA(P1/2t) 4.1 cm\S\2 MV dec slope 670.2 cm/sec\S\2 MV dec time 0.18 sec Ao V2 max 168.6 cm/sec Ao max PG 11.4 mmHg Ao max PG (full) 6.3 mmHg LV V1 max PG 5.1 mmHg LV V1 max 112.7 cm/sec PA V2 max 141.5 cm/sec PA max PG 8.0 mmHg TR max ernesto 150.4 cm/sec
--- NOTE | 2017-10-17 13:11 | Pharmacy Progress Note ---
Glycemic Control Intl Consult Date of Service Oct 17, 2017. Scope Glycemic Pharmacist consulted by Dr Kendall on 10/17/17 for glycemic control and to write orders per [facility] inpatient glycemic control protocol Objective Weight (Kilograms): 123.700 Accuchecks BSG (last 24hrs): Test 10/16/17 21:35 10/17/17 06:45 10/17/17 11:11 Random Glucose 204 mg/dl (70-99) Bedside Glucose 110 mg/dl (70-99) 90 mg/dl (70-99) Laboratory Data (last 24hrs) Test 10/16/17 21:35 10/16/17 22:04 Anion Gap 8.0 mmol/L 18.0 mmol/L BUN/Creatinine Ratio 20.7 Blood Urea Nitrogen 19 mg/dl Creatinine 0.90 mg/dl Potassium Level 3.6 mmol/L Sodium Level 138 mmol/L White Blood Count 10.32 K/uL Red Blood Count 4.82 M/uL Hemoglobin 14.0 g/dL Hematocrit 41.8 % Mean Corpuscular Volume 86.7 fL Mean Corpuscular Hemoglobin 29.0 pg Mean Corpuscular Hemoglobin Concent 33.5 g/dl Platelet Count 277 K/uL Mean Platelet Volume 8.9 fL Neutrophils (%) (Auto) 69.4 % Lymphocytes (%) (Auto) 19.3 % Monocytes (%) (Auto) 8.6 % Eosinophils (%) (Auto) 1.6 % Basophils (%) (Auto) 0.5 % Neutrophils # (Auto) 7.17 K/uL Lymphocytes # (Auto) 1.99 K/uL Monocytes # (Auto) 0.89 K/uL Eosinophils # (Auto) 0.16 K/uL Basophils # (Auto) 0.05 K/uL HbA1c Item Value Date Time Hemoglobin A1c 9.2 % H 07/27/172222 Estimated Average Glucose 217 mg/dl 07/27/172222 Recent Pertinent Medications Outpatient Anti-diabetic Regimen: * Lantus 50 units BID * Novolog 28 u AC Risk Factors for Insulin Resistance: * Infection * IVF * Diet Assessment & Plan ASSESSMENT: * 41 yo diabetic M known to glycemic service from prior admissions, here for treatment of cellulitis * Overnight pharmacist gave Lantus 50 units X 1 @0300 as patient had missed his HS dose of Lantus 50 units * At that point I placed the Lantus 50 units BID order for 0900 on hold - however this dose was still given * Pt will likely be OK as this is his normal dosing at home but we will need to monitor him closely for s/s of hypoglycemia * I do not want to withhold his Lantus tonight - would prefer to keep him on track as this regimen has worked in the past PLAN FOR INPATIENT GLYCEMIC CONTROL: * Basal insulin with LANTUS 50 units SQ BID * Correctional Insulin with NOVOLOG per scale ACHS or Q6hrs while NPO * Goal Range: Low 110 mg/dL - High 140 mg/dL * Correction Factor: 10 mg/dL/unit * Nutritional / Prandial insulin per carb ratio of 1 unit per 3 grams CHO consumed * Please note that the plan above was derived based on current level of insulin resistance and hospital stress. These recommendations are appropriate for inpatient admission only. Plan of care upon discharge will need to be reassessed to avoid potential outpatient hypo/hyperglycemia. Thank you.
--- NOTE | 2017-10-17 16:13 | Pharmacy Progress Note ---
Pharmacy Antibiotic Consult Date of Service: Oct 17, 2017. Pharmacy Dosing Scope Pharmacy is consulted to initiate vancomycin IV dosing therapy, order appropriate labs and adjust drug dose/frequency. Subjective The patient is a 41 year old male admitted on Oct 17, 2017 at 00:45. Objective Height (Feet): 6 Height (Inches): 3.00 Weight (Kilograms): 123.700 Lab Results (24hrs): Test 10/16/17 21:35 10/16/17 21:55 10/16/17 22:04 10/17/17 03:44 White Blood Count 10.32 K/uL (4.8-10.8) Red Blood Count 4.82 M/uL (4.7-6.1) Hemoglobin 14.0 g/dL (14.0-18.0) Hematocrit 41.8 % (42-52) Mean Corpuscular Volume 86.7 fL (80-100) Mean Corpuscular Hemoglobin 29.0 pg (25-34) Mean Corpuscular Hemoglobin Concent 33.5 g/dl (32-36) Platelet Count 277 K/uL (130-400) Mean Platelet Volume 8.9 fL (7.4-10.4) Neutrophils (%) (Auto) 69.4 % Lymphocytes (%) (Auto) 19.3 % Monocytes (%) (Auto) 8.6 % Eosinophils (%) (Auto) 1.6 % Basophils (%) (Auto) 0.5 % Neutrophils # (Auto) 7.17 K/uL (1.4-6.5) Lymphocytes # (Auto) 1.99 K/uL (1.2-3.4) Monocytes # (Auto) 0.89 K/uL (0.11-0.59) Eosinophils # (Auto) 0.16 K/uL (0-0.5) Basophils # (Auto) 0.05 K/uL (0-0.2) RDW Standard Deviation 44.4 fL (36.4-46.3) RDW Coefficient of Variation 14.2 % (11.5-14.5) Immature Granulocyte % (Auto) 0.6 % Immature Granulocyte # (Auto) 0.06 K/uL (0.00-0.02) Prothrombin Time 11.6 SECONDS (9.0-12.0) Prothromb Time International Ratio 1.1 (0.9-1.1) Activated Partial Thromboplast Time 28.9 SECONDS (21.0-31.0) Partial Thromboplastin Ratio 1.1 Sodium Level 138 mmol/L (136-145) Potassium Level 3.6 mmol/L (3.5-5.1) Chloride Level 102 mmol/L (98-107) Carbon Dioxide Level 28 mmol/L (21-32) Anion Gap 8.0 mmol/L (3-11) 18.0 mmol/L (16-25) Blood Urea Nitrogen 19 mg/dl (7-18) Creatinine 0.90 mg/dl (0.60-1.40) Est Creatinine Clear Calc Drug Dose 149.8 ml/min Estimated GFR () 120.8 Estimated GFR (Non- 104.2 BUN/Creatinine Ratio 20.7 (10-20) Random Glucose 204 mg/dl (70-99) Calcium Level 8.9 mg/dl (8.5-10.1) Bedside Troponin I < 0.030 ng/ml (0-0.045) Bedside Hemoglobin 13.9 g/dl (14.0-18.0) Bedside Hematocrit 41 % (42-52) Bedside Sodium 140 mEq/L (135-144) Bedside Potassium 3.8 mEq/L (3.3-5.0) Bedside Chloride 102 mEq/L (101-112) Bedside Total CO2 25 mEq/l (24-31) Bedside Blood Urea Nitrogen 18 mg/dl (7-18) Bedside Creatinine 0.8 mg/dl (0.6-1.3) Bedside Glucose (other) 203 mg/dl (70-99) Bedside Ionized Calcium (Boubacar) 1.16 mmol/l (1.12-1.32) Total Creatine Kinase 509 U/L (39-308) Creatine Kinase MB 9.8 ng/ml (0.5-3.6) Creatine Kinase MB Ratio 1.9 (0-3.0) Troponin I < 0.015 ng/ml (0-0.045) Test 10/17/17 06:45 10/17/17 10:34 10/17/17 11:11 Bedside Glucose 110 mg/dl (70-99) 90 mg/dl (70-99) Total Creatine Kinase 465 U/L (39-308) Creatine Kinase MB 7.8 ng/ml (0.5-3.6) Creatine Kinase MB Ratio 1.7 (0-3.0) Troponin I < 0.015 ng/ml (0-0.045) Assessment & Plan Assessment * 41 yo M with diabetic foot infection. Hx of same from recent admit, treated with ceftriaxone IV 09/08 to about 10/08. Transitioned to oral antibiotic ( likely Bactrim). Now on Zosyn, vancomycin as inpatient. * ID following * SCr at/near baseline Vancomycin dosing * Goal vancomycin trough 15-20 mcg/mL * Will resume dose from previous admission (similar SCr, weight) that produced a level of 12.3 mcg/mL. OK to not be quite to 15 mcg/mL for skin/skin structure infection * Trough prior to 5th overall dose Plan * Vancomycin 2000 mg IV q8h * Trough 10/18 @ 0930 Pharmacy will continue to follow and will adjust dose/frequency as necessary. Thank you
--- NOTE | 2017-10-17 17:20 | Progress Note ---
Internal Med Progress Note Date of Service: Oct 17, 2017. Provider Documentation: SUBJECTIVE: resting comfortably denies any chest pain today has some pain at left foot afebrile OBJECTIVE: Vital Signs-as noted below Exam: General-alert and oriented. Not in distress ENT-Normal hearing Neck-no neck masses supple Lungs-cta b/l no wheezing no crackles Heart-S1 and S2 heard regular rate and rthym, no murmurs Abdomen-Soft bowel sounds present non tender no distension Extremities-left foot slightly swollen and erythematous dorsal aspect Neuro-alert and awake moves extremities Lab data as noted below. ASSESSMENT & PLAN: : This is a pleasant 41-year-old male with a history of diabetes, hypertension, dyslipidemia, smoker, recent deep venous thrombosis of left lower extremity, recent left foot infection presenting with increasing left foot pain and chest pain. 1. Possible recurrence of left foot infection, history of recent left foot infection status post irrigation and debridement August 2017 with osteomyelitis. Seen B ID and Abx stopped will f/u ct scan. Left-sided chest pain, rule out acute cardiac syndrome. serial ce negative ekg unremarkable echo unremarkable await cardio inputs currently asymptomatic Possible esophagitis related chest pain. This has been seen on the CAT scan of the chest today. He uses Protonix 40 mg daily. No PE on ct scan. Recent left lower extremity superficial vein deep venous thrombosis, currently on Xarelto. We will continue his Xarelto 30 mg daily x15 days, then 20 mg daily. Diabetes type 2. Continue Lantus 50 twice a day. On insulin sliding scale.Consulted pharmacy for glycemic management. 5. Hypertension. Blood pressure is on the lower side. We will hold lisinopril for now and monitor, usually takes lisinopril 10 mg daily. 6. Obstructive sleep apnea. Continue BiPAP. 7. Depression, stable. Continue Cymbalta and Abilify. 8. Deep venous thrombosis prophylaxis. On Xarelto. 9. Full code 10. Disposition: To be determined Vital Signs: Date Time Temp Pulse Resp B/P (MAP) Pulse Ox O2 Delivery O2 Flow Rate FiO2 10/17/17 16:00 93 Room Air 10/17/17 15:23 36.7 100 22 127/70 (89) 93 Room Air 10/17/17 12:00 Room Air 10/17/17 11:31 36.9 106 22 117/64 (81) 94 Room Air 10/17/17 08:00 94 Room Air 10/17/17 07:49 36.9 97 20 120/72 (88) 95 Room Air 10/17/17 04:00 96 Room Air 10/17/17 02:18 36.5 109 18 127/73 96 Room Air 10/17/17 02:16 108 18 101/55 94 10/16/17 23:36 112 18 126/57 95 10/16/17 22:40 114 18 116/76 96 Room Air 10/16/17 22:03 158 10/16/17 21:51 95 Room Air 10/16/17 21:51 117 10/16/17 21:14 36.5 129 20 122/77 96 Room Air Lab Results: Results Past 24 Hours Test 10/16/17 21:35 10/16/17 21:55 10/16/17 22:04 10/17/17 03:44 Range/Units White Blood Count 10.32 4.8-10.8 K/uL Red Blood Count 4.82 4.7-6.1 M/uL Hemoglobin 14.0 14.0-18.0 g/dL Hematocrit 41.8 42-52 % Mean Corpuscular Volume 86.7 80-100 fL Mean Corpuscular Hemoglobin 29.0 25-34 pg Mean Corpuscular Hemoglobin Concent 33.5 32-36 g/dl Platelet Count 277 130-400 K/uL Mean Platelet Volume 8.9 7.4-10.4 fL Neutrophils (%) (Auto) 69.4 % Lymphocytes (%) (Auto) 19.3 % Monocytes (%) (Auto) 8.6 % Eosinophils (%) (Auto) 1.6 % Basophils (%) (Auto) 0.5 % Neutrophils # (Auto) 7.17 1.4-6.5 K/uL Lymphocytes # (Auto) 1.99 1.2-3.4 K/uL Monocytes # (Auto) 0.89 0.11-0.59 K/uL Eosinophils # (Auto) 0.16 0-0.5 K/uL Basophils # (Auto) 0.05 0-0.2 K/uL RDW Standard Deviation 44.4 36.4-46.3 fL RDW Coefficient of Variation 14.2 11.5-14.5 % Immature Granulocyte % (Auto) 0.6 % Immature Granulocyte # (Auto) 0.06 0.00-0.02 K/uL Prothrombin Time 11.6 9.0-12.0 SECONDS Prothromb Time International Ratio 1.1 0.9-1.1 Activated Partial Thromboplast Time 28.9 21.0-31.0 SECONDS Partial Thromboplastin Ratio 1.1 Sodium Level 138 136-145 mmol/L Potassium Level 3.6 3.5-5.1 mmol/L Chloride Level 102 98-107 mmol/L Carbon Dioxide Level 28 21-32 mmol/L Anion Gap 8.0 18.0 16-25 mmol/L Blood Urea Nitrogen 19 7-18 mg/dl Creatinine 0.90 0.60-1.40 mg/dl Est Creatinine Clear Calc Drug Dose 149.8 ml/min Estimated GFR () 120.8 Estimated GFR (Non- 104.2 BUN/Creatinine Ratio 20.7 10-20 Random Glucose 204 70-99 mg/dl Calcium Level 8.9 8.5-10.1 mg/dl Bedside Troponin I < 0.030 0-0.045 ng/ml Bedside Hemoglobin 13.9 14.0-18.0 g/dl Bedside Hematocrit 41 42-52 % Bedside Sodium 140 135-144 mEq/L Bedside Potassium 3.8 3.3-5.0 mEq/L Bedside Chloride 102 101-112 mEq/L Bedside Total CO2 25 24-31 mEq/l Bedside Blood Urea Nitrogen 18 7-18 mg/dl Bedside Creatinine 0.8 0.6-1.3 mg/dl Bedside Glucose (other) 203 70-99 mg/dl Bedside Ionized Calcium (Boubacar) 1.16 1.12-1.32 mmol/l Total Creatine Kinase 509 39-308 U/L Creatine Kinase MB 9.8 0.5-3.6 ng/ml Creatine Kinase MB Ratio 1.9 0-3.0 Troponin I < 0.015 0-0.045 ng/ml Test 10/17/17 06:45 10/17/17 10:34 10/17/17 11:11 10/17/17 16:04 Range/Units Bedside Glucose 110 90 121 70-99 mg/dl Total Creatine Kinase 465 39-308 U/L Creatine Kinase MB 7.8 0.5-3.6 ng/ml Creatine Kinase MB Ratio 1.7 0-3.0 Troponin I < 0.015 0-0.045 ng/ml Microbiology Results 10/16/17 Blood Culture, Received Pending 10/16/17 Blood Culture, Received Pending
--- NOTE | 2017-10-17 17:53 | Cardiology Consultation ---
Cardiology Consultation Date of Consultation: Oct 17, 2017 History of Present Illness Bry Akhtar is a 41 year old male seen in cardiology consultation per the request of Dr. Kendall for the evaluation of chest discomfort. The patient has not been followed by cardiology in the past. The patient was seen by the undersigned in the [facility], room 220. He was resting comfortably when I went to interview him. He states that he presented to the hospital via the emergency room yesterday with complaints of left foot and left lower leg pain feeling "like his foot was on fire". He states that when he arrived to the emergency room he also noted that he had transient chest pain "for a while" although he is not able to characterize it very well. He describes not having any significant chest pain otherwise recently, although review of his recent hospitalization does describe brief transient chest pain during that hospital stay as well. The patient's recent history dates back to August 2017 when he had incision and debridement of a left foot abscess. His mobility has subsequently been diminished in the interim time and he had recently been discharged last week after having been diagnosed with a left lower extremity deep venous thrombosis for which he is on Xarelto. EKG on presentation yesterday 10/16/17 at 2125 hrs. revealed sinus tachycardia 115 bpm with mild nonspecific ST abnormality. Repeat tracing this morning on 10/17/17 at 6:37 AM once again revealed normal sinus rhythm at [address] segments were within normal limits. His troponin has been normal 3. There has been an elevation of the CPK of 509 units per liter at 565 units per liter, which is likely due to the patient's stasis and being bedridden. During the patient's recent hospital stay he underwent an echocardiogram on with normal left ventricular wall motion. Echocardiogram was repeated today and reviewed by the undersigned. During the echocardiogram sinus tachycardia at 105 bpm was noted with mild concentric left ventricular hypertrophy and no left ventricular regional wall motion abnormalities. The left ventricular systolic function was hyperdynamic with a qualitative ejection fraction in the range of 65-70%. Mild right ventricular enlargement was noted with normal ventricular systolic function. Doppler findings do not suggest pulmonary hypertension. A repeat left lower extremity venous duplex was performed on 10/17/17 that revealed no residual DVT. CT angiogram was performed on arrival to the hospital which revealed no evidence of pulmonary embolism in the main pulmonary vascular tree, but the timing of the contrast bolus was not ideal and therefore the image quality was noted to be technically limited per the radiology report. Persistent mild distal esophageal wall thickening perhaps consistent with esophagitis was noted as well as hepatic steatosis. Past Medical/Surgical History Problem List: Medical Problems: (1) Depression (2) Depression (3) DM type 2 (diabetes mellitus, type 2) (4) DVT, lower extremity, proximal, acute (5) Foot abscess (6) Gastroparesis (7) HTN (hypertension) (8) IBS (irritable bowel syndrome) (9) Intellectual disability (10) Intellectual disability (11) Lumbago (12) Mental retardation (13) Nicotine abuse (14) Nicotine dependence (15) NSVT (nonsustained ventricular tachycardia) (16) Obesity (17) Obstructive sleep apnea (18) Sepsis (19) Stroke-like symptoms Surgical Problems: (1) S/P left knee arthroscopy (2) S/P tonsillectomy Social History Problems: (1) Alcohol abuse History Social History: The patient lives with his mother Family History: He states his grandmother suddenly due to a presumed myocardial infarction. His father of COPD and possibly had congestive heart failure but is not sure. Review Of Systems See above for pertinent positives & negatives. A total of 10 systems reviewed and were otherwise negative. Allergies Coded Allergies: Cephalosporins (Verified Allergy, Unknown, CECLOR- RXN UNKNOWN. A CHILD. WILLING TO TRY [facility] AGAIN, 10/09/17) NSAIDs (Verified Adverse Reaction, Unknown, gastroparesis, kidney problems , 10/09/17) Medications Reported Home Medications Medications Dose Route/Sig Max Daily Dose Days Date Category Dose Instructions Ultram (Tramadol HCl) 50 Mg Tab 25 Mg PO Q8H PRN 10/16/17 Reported Lantus Solostar (Insulin Glargine) 100 Unit/Ml Inj 50 Units SC BID 10/16/17 Reported Novolog Flexpen (Insulin Aspart) 100 Units/Ml Inj 28 Units SC AC 10/16/17 Reported Duloxetine HCl 60 Mg Cap 60 Mg PO DAILY 10/16/17 Reported Lisinopril 10 Mg Tab 10 Mg PO DAILY 10/16/17 Reported Protonix (Pantoprazole Sodium) 40 Mg Tab 40 Mg PO DAILY 10/16/17 Reported Xarelto Starter Pack 15 & 20 mg (Rivaroxaban) 1 Tab Tab 15 Mg PO UD 30 10/12/17 Rx XARELTO 15MG PO TWICE DAILY X 21 DAYS THEN XARELTO 20MG PO ONCE DAILY Lipitor (Atorvastatin Calcium) 10 Mg Tab 10 Mg PO DAILY 08/28/17 Reported Miralax (Polyethylene Glycol 3350) 1 Pow Pow 17 Gm PO DAILY PRN 08/28/17 Reported Aspirin Ec (Aspirin) 81 Mg Tab 81 Mg PO DAILY 07/31/17 Reported Nicorelief (Nicotine Polacrilex) 1 Piece Gum 1 Piece PO UD PRN 07/24/17 Reported Aripiprazole 10 Mg Tab 10 Mg PO HS 06/22/17 Reported Gabapentin 600 Mg Tab 600 Mg PO TID 06/22/17 Reported TAKE ONE 600 MG TABLET ALONG WITH ONE 400 MG TABLET TO EQUAL 1000 MG DOSE Gabapentin 400 Mg Cap 400 Mg PO TID 06/22/17 Reported TAKE ONE 400 MG TABLET ALONG WITH ONE 600 MG TABLET TO EQUAL 1000 MG DOSE Physical Exam Vital Signs (Last 8hrs): Last 8 Hrs Date Time Temp Pulse Resp B/P (MAP) Pulse Ox O2 Delivery O2 Flow Rate FiO2 10/17/17 16:00 93 Room Air 10/17/17 15:23 36.7 100 22 127/70 (89) 93 Room Air 10/17/17 12:00 Room Air 10/17/17 11:31 36.9 106 22 117/64 (81) 94 Room Air General Appearance: Alert and Oriented x3. NAD. Head: Normocephalic Atraumatic. Eyes: PERRLA, EOMI, conjunctiva and sclera clear Neck: Supple. No carotid bruits noted. No JVD. No HJD. Respiratory: Breath sounds clear to auscultation bilaterally. No w/r/r. Cardiovascular: Reg rate and rhythm. S1 and S2 noted. No murmurs, rubs, gallops. PMI non displace. Abdomen: Normal bowel sounds, soft nontender. no abdominal bruits. Extremities: Findings of recent left foot surgery noted, with mild swelling, no significant erythema noted Neuro: No focal deficits. Psychiatric: Normal affect. Data Last Resulted 10/16/17 21:35 Red Blood Count 4.82, Mean Corpuscular Volume 86.7, Mean Corpuscular Hemoglobin 29.0, Mean Corpuscular Hemoglobin Concent 33.5, Mean Platelet Volume 8.9, Neutrophils (%) (Auto) 69.4, Lymphocytes (%) (Auto) 19.3, Monocytes (%) (Auto) 8.6, Eosinophils (%) (Auto) 1.6, Basophils (%) (Auto) 0.5, Neutrophils # (Auto) 7.17, Lymphocytes # (Auto) 1.99, Monocytes # (Auto) 0.89, Eosinophils # (Auto) 0.16, Basophils # (Auto) 0.05 Last Resulted 10/16/17 21:35 Past 24 Hours Test 10/16/17 21:35 10/17/17 03:44 10/17/17 10:34 Range/Units Prothromb Time International Ratio 1.1 0.9-1.1 Prothrombin Time 11.6 9.0-12.0 SECONDS Creatine Kinase MB 9.8 H 7.8 H 0.5-3.6 ng/ml Creatine Kinase MB Ratio 1.9 1.7 0-3.0 Total Creatine Kinase 509 H 465 H 39-308 U/L Troponin I < 0.015 < 0.015 0-0.045 ng/ml EKG as noted above. Telemetry reveals sinus rhythm in the 90 be per minute range and mild sinus tachycardia in the range of 100-110 bpm Assessment & Plan Impression: 41-year-old male 1. Chest discomfort, somewhat atypical for angina 2. Recent left lower extremity DVT for which she is now on anticoagulation 3. Left foot abscess, which he underwent I &D and is being cared for by care clinic Discussion/recommendations: The patient has a mild sinus tachycardia that per review of his recent tests from last week, seems as though the heart rate is higher at the present time. He described severe left lower leg and left foot pain and that's what prompted him to come to the hospital and then subsequently he noted chest discomfort. The contrast bolus for the CT angiogram was somewhat suboptimal, excluding main pulmonary vascular tree pulmonary embolism, but certainly subsegmental pulmonary embolism is still a possibility I think it is a significant clinical consideration given his recent orthopedic surgery, stasis, and recent DVT as well as sinus tachycardia. Perhaps he coincidentally has an esophagitis aced on the esophageal wall thickening. His echocardiogram reveals normal left ventricular wall motion, and the left ventricular wall motion is normal to hyperdynamic on the resting EKG as if he is a patient who has an infection and has pain. The right ventricle is noted to be mildly dilated qualitatively. This could be pharmacy services representative of pulmonary embolism that was not well visualized on CT findings , however the patient's obesity and history of snoring he likely has underlying sleep apnea also this could be related to that. At present I recommend ongoing observation and antibiotic therapy. If he has recurrent significant pain, we could consider a pharmacologic stress test, but given his resting tachycardia I think that if he was actually experiencing unstable angina he would have persistent symptoms suggestive of cardiac nature and these are absent at present.
[2017-10-17] MEDS: ARIPIprazole TAB 10 MG TAB PO SCH (21:28)
[2017-10-18] VITALS (9 sets, daily range): BP systolic 135–160; BP diastolic 65–98; PULSE 81–92; TEMP 36.4–36.6; O2SAT 94–97
[2017-10-18] MEDS: VANCOMYCIN INJ 2,000 MG in SODIUM CHLORIDE 0.9% 500ML 500 ML IV SCH ×3 (02:23→21:42)
[2017-10-18] MEDS: INSULIN ASPART 100 UNITS/ML 3 ML PEN SC SCH ×4 (08:54→21:45)
[2017-10-18] MEDS: RIVAROXABAN TAB 15 MG TAB PO SCH ×2 (08:56→21:42)
[2017-10-18] MEDS: ASPIRIN 81 MG ECTAB PO SCH (08:56)
[2017-10-18] MEDS: GABAPENTIN 400 MG CAP PO SCH ×3 (08:56→21:43)
[2017-10-18] MEDS: GABAPENTIN 600 MG TAB PO SCH ×3 (08:56→21:43)
[2017-10-18] MEDS: DOCUSATE SODIUM/SENNA 50/8.6MG TAB PO SCH (08:56)
[2017-10-18] MEDS: ATORVASTATIN 10 MG TAB PO SCH (08:56)
[2017-10-18] MEDS: DULOXETINE HCL 60 MG CAP PO SCH (08:56)
[2017-10-18] MEDS: PIPERACILL/TAZOBAC IV 4.5 GM in DEXTROSE 5% 100ML IV SCH ×2 (08:59→16:35)
[2017-10-18] MEDS ORDERED: INSULIN GLARGINE SOLOSTAR 100 UNITS/ML 3 ML PEN SC SCH ×3 (09:00→21:00)
[2017-10-18] MEDS ORDERED: VANCOMYCIN TROUGH ONE (09:30)
[2017-10-18 09:52] LABS: CREATININE 0.8 mg/dl (0.60-1.40)
--- NOTE | 2017-10-18 10:54 | DIAGNOSTIC IMAGING REPORT ---
CT SCAN OF THE LEFT FOOT WITH IV CONTRAST CLINICAL HISTORY: Left foot infection. COMPARISON STUDY: MRI of the left foot dated 08/30/2017. TECHNIQUE: Following the IV administration of 93 cc of Optiray 320, CT scan of the left foot is performed from the ankle to the base of the foot. Images are reviewed in the axial, sagittal, and coronal planes. IV contrast was administered without complication. A dose lowering technique was utilized adhering to the principles of ALARA. Note that interpretation is suboptimal without plain film correlate. CT DOSE: 165.32 mGy.cm FINDINGS: The skeletal structures are osteopenic for age. No acute fracture is identified. There is a subacute/nonunited fracture corticated fragments at the base of the third proximal phalanx. Cortical thickening and bony irregularity is also seen involving the second middle phalanx. No bony erosion or periostitis is clearly seen. The joint spaces of the foot are maintained. The ankle mortise is intact. There is no evidence of Lisfranc injury. No definite organized fluid collection is seen. Extensive soft tissue edema with associated fluid is present throughout the forefoot, greatest along the dorsal surface. Fluid is greatest around the third phalanx. IMPRESSION: 1. Extensive soft tissue edema and subcutaneous fluid as above. The appearance is consistent with cellulitis. 2. No definite organized fluid collection is seen to indicate abscess. 3. Foci of bony abnormality are present at the base of the third proximal phalanx and involving the second middle phalanx. The appearance suggests nonunited fracture/posttraumatic change. Osteomyelitis would be impossible to exclude. Clinical correlation will be essential. Dictated: 10/18/2017 10:37 AM Transcribed: 10/18/2017 10:53 AM [place] Electronically signed by: Jaydon Wallace M.D. 10/18/2017 12:13 PM Dictated Date/Time: 10/18/2017 10:37 AM
[2017-10-18] MEDS: PANTOprazole INJ 40 MG in SYRINGE 0 ML IV SCH (12:22)
--- NOTE | 2017-10-18 14:00 | Pharmacy Progress Note ---
Glycemic Control Progress Note Date of Service Oct 18, 2017. Scope Glycemic Pharmacist consulted for glycemic control to write orders per [facility] inpatient glycemic control protocol. Objective Accuchecks BSG (last 24hrs): Test 10/17/17 16:04 10/17/17 20:02 10/17/17 20:03 10/17/17 23:54 Bedside Glucose 121 mg/dl (70-99) 68 mg/dl (70-99) 78 mg/dl (70-99) 133 mg/dl (70-99) Test 10/18/17 06:01 10/18/17 11:06 Bedside Glucose 138 mg/dl (70-99) 91 mg/dl (70-99) Recent Pertinent Medications The patient is currently receiving: * Basal insulin: Lantus 50 units every 12 hours * Correctional Insulin: Novolog Correction per scale ACHS Goal Range: Low 110 mg/dL - High 140 mg/dL Correction Factor: 10 mg/dL/unit * Prandial insulin: Per carb ratio of 1 unit per 3 grams CHO consumed Outpatient Anti-Diabetic Meds Lantus 50 units twice daily and Novolog 28 units with meals Assessment & Plan ASSESSMENT: * See progress note from 10/17/17 for more background info, in short: * Pt receiving SQ basal bolus insulin regimen for hyperglycemia secondary to baseline DM (outpatient regimen on hold),stress/infection (cellulitis currently on vancomycin and Zosyn). * Patient is currently receiving an average of 130 units of insulin per day * 100 units of basal insulin * 30 units of prandial/correctional insulin * BSGs ranging 68 - 138 mg/dl over the past 24hrs * Changes needed to insulin regimen: * AM Fasting BSG = 138 mg/dl. This is within goal range for patient based on inpatient targets and co-morbidities. HOWEVER, please note that the patient had a blood sugar yesterday around dinner of 68 mg/dL with reduced PO intake. Slightly reduced Lantus for this morning by 10% to 45 units. HOWEVER, by lunchtime, patient's blood sugar had dropped to 91 mg/dL. This was most likely secondary to too aggressive carbohydrate ratio. There is still concern for the patient's decreased PO intake and it appears that the patient may require less insulin this hospitalization. Provided a scale this evening with a 20% reduction in Lantus (since patient had lower blood sugar yesterday). * Post-prandial BSGs are trending downwards throughout the day (insulin stacking) therefore need to loosen CF/CR. Loosened patient to a carbohydrate ratio of 4. Typically patient requires a carbohydrate ratio around 2.5-3 but this hospitalization this appears to be different. * Total daily dose = 100?? units. Truly unknown until patient begins to eat again. PLAN FOR INPATIENT GLYCEMIC CONTROL: * Decreasing Lantus to 45 units SQ this morning then 30-40 units SQ BID (Lantus 30 units if BSG less than 120 mg/dL) * Loosening correction factor to 10 mg/dl/unit * Loosening carb ratio to 1 unit per 4 grams CHO consumed * Continuing goal range to Low 110 mg/dL - High 140 mg/dL Thank you.
[2017-10-18] MEDS: SODIUM CHLORIDE 0.9% 1000ML 1,000 ML IV SCH (14:16)
--- NOTE | 2017-10-18 16:45 | Cardiology Follow-Up ---
Subjective General Date of Service: Oct 18, 2017. Chief Complaint: follow up chest pain Pt evaluation today including: conversation w/ patient, physical exam History of Present Illness The patient is a 41 year old male seen in follow-up. Patient is in actually no distress. He continues to complain of left foot pain. CT of the lower extremity revealed suggestion of ongoing cellulitis. Telemetry sinus rhythm at 80 bpm is present, overall sinus tachycardia has resolved. Allergies Coded Allergies: Cephalosporins (Verified Allergy, Unknown, CECLOR- RXN UNKNOWN. A CHILD. WILLING TO TRY [facility] AGAIN, 10/09/17) NSAIDs (Verified Adverse Reaction, Unknown, gastroparesis, kidney problems , 10/09/17) Social History Smoking Status: Current Every Day Smoker Hx Tobacco Use In Past Year?: Yes Hx Alcohol Use - Type And Amou: Yes (beer) Hx Substance Use - Type And Am: Yes Problem List Medical Problems: (1) Abdominal pain Status: Acute (2) Abdominal pain Status: Acute (3) Acute chest pain Status: Acute (4) Acute exacerbation of chronic low back pain Status: Acute (5) Acute exacerbation of chronic low back pain Status: Acute (6) Acute renal failure Status: Acute (7) Acute renal failure Status: Acute (8) Back pain Status: Acute (9) Back pain Status: Acute (10) Bilateral cellulitis of lower leg Status: Acute (11) Bilateral leg pain Status: Acute (12) Cellulitis of left elbow Status: Acute (13) Cellulitis of left foot Status: Acute (14) Cellulitis of left foot Status: Acute (15) Chest pain Status: Acute (16) Chest pain Status: Acute (17) Chest pain Status: Acute (18) Chest wall pain Status: Acute (19) Chronic abdominal pain Status: Acute (20) Chronic low back pain Status: Acute (21) Contusion of left leg Status: Acute (22) Cough Status: Acute (23) Dehydration Status: Acute (24) Dehydration Status: Acute (25) Dehydration Status: Acute (26) Dehydration Status: Acute (27) Depression Status: Chronic (28) Diabetes Status: Acute (29) DM type 2 (diabetes mellitus, type 2) Status: Chronic (30) DVT (deep venous thrombosis) Status: Acute (31) Elevated d-dimer Status: Acute (32) Encounter for smoking cessation counseling Status: Acute (33) Fall in home Status: Acute (34) Generalized abdominal pain Status: Acute (35) History of peripheral neuropathy Status: Acute (36) Hypotension Status: Acute (37) Intractable low back pain Status: Acute (38) Left arm pain Status: Acute (39) Left elbow pain Status: Acute (40) Left sided chest pain Status: Acute (41) Left sided chest pain Status: Acute (42) Left sided chest pain Status: Acute (43) Left sided numbness Status: Acute (44) Leg pain, left Status: Acute (45) Robinhood toxicity Status: Acute (46) 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 Status: Acute (47) Low back pain Status: Acute (48) Lower abdominal pain Status: Acute (49) Lower back pain Status: Acute (50) Lumbar contusion Status: Acute (51) Migraine Status: Acute (52) Nausea & vomiting Status: Acute (53) Nausea and vomiting Status: Acute (54) Nausea vomiting and diarrhea Status: Acute (55) Nicotine addiction Status: Acute (56) Pulmonary embolus Status: Acute (57) Renal insufficiency Status: Acute (58) Right ankle pain Status: Acute (59) Right elbow pain Status: Acute (60) Right lower quadrant abdominal pain Status: Acute (61) Suicidal ideation Status: Acute (62) Suicidal ideation Status: Acute (63) Suicidal ideation Status: Acute (64) Suicidal thoughts Status: Acute (65) Syncope Status: Acute (66) Tachycardia Status: Acute (67) Tachycardia Status: Acute (68) Vomiting Status: Acute (69) Weakness Status: Acute Physical Exam Vital Signs Last Vital Signs Documentation Date Time Temp Pulse Resp B/P (MAP) Pulse Ox O2 Delivery O2 Flow Rate FiO2 10/18/17 16:00 Room Air 10/18/17 15:47 36.6 92 20 151/78 (102) 97 Physical Exam Constitutional: Level of Distress: NAD ENMT: normal ENT inspection Neck: supple, trachea midline Lungs: Auscultation: no wheezing, no rales/crackles, no rhonchi Cardiovascular: Heart Auscultation: RRR, no murmurs, no rubs Extremities: pertinent finding (left foot edema in the area of cellulitis) Assessment and Plan Assessment and Plan Impression: 41-year-old male 1. Chest discomfort, somewhat atypical for angina 2. Recent left lower extremity DVT for which she is now on anticoagulation 3. Left foot abscess, which he underwent I &D and is being cared for by care clinic Recommendations: The patient describes waxing or waning chest discomfort that is atypical for angina. I think that the most prudent thing to do with this case is to continue to treat the patient's left foot abscess, and continue anticoagulation for his recent DVT and presumed pulmonary embolism not detected by CT scan. No further cardiac testing is recommended present. Laboratory Results Last 24 Hours Test 10/17/17 20:02 10/17/17 20:03 10/17/17 23:54 10/18/17 06:01 Bedside Glucose 68 mg/dl 78 mg/dl 133 mg/dl 138 mg/dl Test 10/18/17 09:13 10/18/17 11:06 10/18/17 15:52 Creatinine 0.80 mg/dl Est Creatinine Clear Calc Drug Dose 176.6 ml/min Estimated GFR () 126.8 Estimated GFR (Non- 109.4 Vancomycin Level Trough 22.2 mcg/ml Bedside Glucose 91 mg/dl 83 mg/dl
--- NOTE | 2017-10-18 18:10 | Progress Note ---
Internal Med Progress Note Date of Service: Oct 18, 2017. Provider Documentation: SUBJECTIVE: resting comfortably no chest pain or sob afebrile has some pain in his left foot OBJECTIVE: Vital Signs-as noted below Exam: General-alert and oriented. Not in distress ENT-Normal hearing Neck-no neck masses supple Lungs-cta b/l no wheezing no crackles Heart-S1 and S2 heard regular rate and rthym, no murmurs Abdomen-Soft bowel sounds present non tender no distension Extremities-left foot slightly swollen and erythematous dorsal aspect Neuro-alert and awake moves extremities Lab data as noted below. ASSESSMENT & PLAN: : This is a pleasant 41-year-old male with a history of diabetes, hypertension, dyslipidemia, smoker, recent deep venous thrombosis of left lower extremity, recent left foot infection presenting with increasing left foot pain and chest pain. 1. Possible recurrence of left foot infection, history of recent left foot infection status post irrigation and debridement August 2017 with osteomyelitis. Seen by ID ct scan shows cellulitis and difficult to exclude osteomyelitis will d/w ID Left-sided chest pain, rule out acute cardiac syndrome. serial ce negative ekg unremarkable echo unremarkable await cardio inputs-presumed PE not detectable on ct scan. On xarelto currently asymptomatic Possible esophagitis related chest pain. This has been seen on the CAT scan of the chest today. He uses Protonix 40 mg daily. No PE on ct scan. Recent left lower extremity superficial vein deep venous thrombosis, currently on Xarelto. We will continue his Xarelto 30 mg daily x15 days, then 20 mg daily. Diabetes type 2. Continue Lantus 50 twice a day. On insulin sliding scale.Consulted pharmacy for glycemic management. 5. Hypertension. Blood pressure is on the lower side. We will hold lisinopril for now and monitor, usually takes lisinopril 10 mg daily. 6. Obstructive sleep apnea. Continue BiPAP. 7. Depression, stable. Continue Cymbalta and Abilify. 8. Deep venous thrombosis prophylaxis. On Xarelto. 9. Full code 10. Disposition: To be determined Vital Signs: Date Time Temp Pulse Resp B/P (MAP) Pulse Ox O2 Delivery O2 Flow Rate FiO2 10/18/17 16:00 Room Air 10/18/17 15:47 36.6 92 20 151/78 (102) 97 Room Air 10/18/17 12:00 Room Air 10/18/17 11:38 36.4 86 18 160/98 (118) 97 Room Air 10/18/17 08:00 Room Air 10/18/17 07:15 36.6 86 20 158/82 (107) 96 Room Air 10/18/17 04:19 94 Room Air 10/18/17 03:27 36.5 81 20 138/65 (89) 95 Room Air 10/18/17 00:00 94 Room Air 10/17/17 23:29 36.5 87 22 106/65 (79) 94 Room Air 10/17/17 22:36 94 Room Air 10/17/17 19:35 36.7 90 24 118/72 (87) 94 Room Air Lab Results: Results Past 24 Hours Test 10/17/17 20:02 10/17/17 20:03 10/17/17 23:54 10/18/17 06:01 Range/Units Bedside Glucose 68 78 133 138 70-99 mg/dl Test 10/18/17 09:13 10/18/17 11:06 10/18/17 15:52 Range/Units Creatinine 0.80 0.60-1.40 mg/dl Est Creatinine Clear Calc Drug Dose 176.6 ml/min Estimated GFR () 126.8 Estimated GFR (Non- 109.4 Vancomycin Level Trough 22.2 SEE COMMENT mcg/ml Bedside Glucose 91 83 70-99 mg/dl
[2017-10-18] MEDS: HYDROmorphone INJ 0.5 MG/0.5 ML SYR IV PRN (21:42)
[2017-10-18] MEDS: ARIPIprazole TAB 10 MG TAB PO SCH (21:43)
[2017-10-18] MEDS: INSULIN GLARGINE SOLOSTAR 100 UNITS/ML 3 ML PEN SQ SCH (21:44)
[2017-10-19] MEDS: PIPERACILL/TAZOBAC IV 4.5 GM in DEXTROSE 5% 100ML IV SCH ×2 (00:07→07:41)
[2017-10-19 03:22] VITALS: BP 154/91; PULSE 83; TEMP 36.5; O2SAT 94
[2017-10-19] MEDS: SODIUM CHLORIDE 0.9% 1000ML 1,000 ML IV SCH ×3 (04:30→21:05)
[2017-10-19] MEDS: HYDROmorphone INJ 0.5 MG/0.5 ML SYR IV PRN (05:39)
[2017-10-19 07:19] LABS: BASO % 0.3 %; BASO ABS # 0.02 K/uL (0-0.2); EOS % 4.5 %; EOS ABS # 0.26 K/uL (0-0.5); HEMATOCRIT 37.3 % (42-52); HEMOGLOBIN 12.1 g/dL (14.0-18.0); IG# 0.03 K/uL (0.00-0.02); LYMPH % 31.1 %; LYMPH ABS # 1.78 K/uL (1.2-3.4); MEAN CELL VOLUME 85.7 fL (80-100); MEAN CORPUSCULAR HEMOGLOBIN 27.8 pg (25-34); MEAN CORPUSCULAR HGB CONC 32.4 g/dl (32-36); MONO ABS # 0.57 K/uL (0.11-0.59); NEUT % 53.6 %; NEUT ABS # 3.06 K/uL (1.4-6.5); PLATELET COUNT 237 K/uL (130-400); RED CELL DISTRIBUTION WIDTH CV 13.6 % (11.5-14.5); RED CELL DISTRIBUTION WIDTH SD 42.8 fL (36.4-46.3); WHITE BLOOD COUNT 5.72 K/uL (4.8-10.8)
[2017-10-19 07:31] VITALS: BP 152/90; PULSE 85; TEMP 36.6; O2SAT 95
[2017-10-19] MEDS: GABAPENTIN 600 MG TAB PO SCH ×3 (07:33→21:06)
[2017-10-19] MEDS: DULOXETINE HCL 60 MG CAP PO SCH (07:33)
[2017-10-19] MEDS: ATORVASTATIN 10 MG TAB PO SCH (07:33)
[2017-10-19] MEDS: ASPIRIN 81 MG ECTAB PO SCH (07:33)
[2017-10-19] MEDS: GABAPENTIN 400 MG CAP PO SCH ×3 (07:34→21:06)
[2017-10-19] MEDS: DOCUSATE SODIUM/SENNA 50/8.6MG TAB PO SCH (07:34)
[2017-10-19] MEDS: RIVAROXABAN TAB 15 MG TAB PO SCH ×2 (07:34→21:07)
[2017-10-19] MEDS: INSULIN GLARGINE SOLOSTAR 100 UNITS/ML 3 ML PEN SQ SCH ×2 (07:38→21:17)
[2017-10-19] MEDS: INSULIN ASPART 100 UNITS/ML 3 ML PEN SC SCH ×4 (07:38→21:00)
[2017-10-19 07:46] LABS: CALCIUM 8.6 mg/dl (8.5-10.1); CREATININE 0.81 mg/dl (0.60-1.40); POTASSIUM 3.9 mmol/L (3.5-5.1)
[2017-10-19] MEDS: VANCOMYCIN INJ 2,000 MG in SODIUM CHLORIDE 0.9% 500ML 500 ML IV SCH (10:39)
[2017-10-19] MEDS: PANTOprazole INJ 40 MG in SYRINGE 0 ML IV SCH (10:39)
[2017-10-19 10:52] VITALS: BP 159/99; PULSE 85; TEMP 36.5; O2SAT 94
[2017-10-19] MEDS: TRAMADOL HCL 50 MG TAB PO PRN ×2 (12:49→21:06)
--- NOTE | 2017-10-19 13:01 | Cardiology Follow-Up ---
Subjective General Date of Service: Oct 19, 2017. Chief Complaint: follow up chest pain Pt evaluation today including: conversation w/ patient, physical exam History of Present Illness The patient is a 41 year old male seen in follow up. Continues to complain of left foot pain. Continues to complain of occasional brief chest pains that come and go and occur when he is lying in bed. Telemetry reveals improved heart rates, sinus rhythm in the 80-90 beat per minute range Allergies Coded Allergies: Cephalosporins (Verified Allergy, Unknown, CECLOR- RXN UNKNOWN. A CHILD. WILLING TO TRY CEPHS AGAIN, 10/09/17) NSAIDs (Verified Adverse Reaction, Unknown, gastroparesis, kidney problems , 10/09/17) Social History Smoking Status: Current Every Day Smoker Hx Tobacco Use In Past Year?: Yes Hx Alcohol Use - Type And Amou: Yes (beer) Hx Substance Use - Type And Am: Yes Problem List Medical Problems: (1) Abdominal pain Status: Acute (2) Abdominal pain Status: Acute (3) Acute chest pain Status: Acute (4) Acute exacerbation of chronic low back pain Status: Acute (5) Acute exacerbation of chronic low back pain Status: Acute (6) Acute renal failure Status: Acute (7) Acute renal failure Status: Acute (8) Back pain Status: Acute (9) Back pain Status: Acute (10) Bilateral cellulitis of lower leg Status: Acute (11) Bilateral leg pain Status: Acute (12) Cellulitis of left elbow Status: Acute (13) Cellulitis of left foot Status: Acute (14) Cellulitis of left foot Status: Acute (15) Chest pain Status: Acute (16) Chest pain Status: Acute (17) Chest pain Status: Acute (18) Chest wall pain Status: Acute (19) Chronic abdominal pain Status: Acute (20) Chronic low back pain Status: Acute (21) Contusion of left leg Status: Acute (22) Cough Status: Acute (23) Dehydration Status: Acute (24) Dehydration Status: Acute (25) Dehydration Status: Acute (26) Dehydration Status: Acute (27) Depression Status: Chronic (28) Diabetes Status: Acute (29) DM type 2 (diabetes mellitus, type 2) Status: Chronic (30) DVT (deep venous thrombosis) Status: Acute (31) Elevated d-dimer Status: Acute (32) Encounter for smoking cessation counseling Status: Acute (33) Fall in home Status: Acute (34) Generalized abdominal pain Status: Acute (35) History of peripheral neuropathy Status: Acute (36) Hypotension Status: Acute (37) Intractable low back pain Status: Acute (38) Left arm pain Status: Acute (39) Left elbow pain Status: Acute (40) Left sided chest pain Status: Acute (41) Left sided chest pain Status: Acute (42) Left sided chest pain Status: Acute (43) Left sided numbness Status: Acute (44) Leg pain, left Status: Acute (45) [place] toxicity Status: Acute (46) snf current use of anticoagulant therapy Status: Acute (47) Low back pain Status: Acute (48) Lower abdominal pain Status: Acute (49) Lower back pain Status: Acute (50) Lumbar contusion Status: Acute (51) Migraine Status: Acute (52) Nausea & vomiting Status: Acute (53) Nausea and vomiting Status: Acute (54) Nausea vomiting and diarrhea Status: Acute (55) Nicotine addiction Status: Acute (56) Pulmonary embolus Status: Acute (57) Renal insufficiency Status: Acute (58) Right ankle pain Status: Acute (59) Right elbow pain Status: Acute (60) Right lower quadrant abdominal pain Status: Acute (61) Suicidal ideation Status: Acute (62) Suicidal ideation Status: Acute (63) Suicidal ideation Status: Acute (64) Suicidal thoughts Status: Acute (65) Syncope Status: Acute (66) Tachycardia Status: Acute (67) Tachycardia Status: Acute (68) Vomiting Status: Acute (69) Weakness Status: Acute Physical Exam Vital Signs Last Vital Signs Documentation Date Time Temp Pulse Resp B/P (MAP) Pulse Ox O2 Delivery O2 Flow Rate FiO2 10/19/17 12:00 Room Air 10/19/17 10:52 36.5 85 20 159/99 (119) 94 Physical Exam Constitutional: Level of Distress: NAD ENMT: normal ENT inspection Neck: supple, trachea midline Lungs: Auscultation: no wheezing, no rales/crackles, no rhonchi Cardiovascular: Heart Auscultation: RRR, no murmurs, no rubs Extremities: pertinent finding (left foot edema in the area of cellulitis) Assessment and Plan Assessment and Plan Impression: 41-year-old male 1. Chest discomfort, atypical for angina 2. Recent left lower extremity DVT for which he is now on anticoagulation 3. Left foot abscess, which he underwent I &D and is being cared for by wound care Recommendations: The patient describes waxing or waning chest discomfort that is atypical for angina. Chest pain is reproduced on palpation adjacent to the left sternum and along his left pectoral region. Continue Xarelto. No further cardiac testing is recommended present. Laboratory Results Last 24 Hours Test 10/18/17 15:52 10/18/17 19:53 10/19/17 06:41 10/19/17 06:44 Bedside Glucose 83 mg/dl 106 mg/dl 108 mg/dl White Blood Count 5.72 K/uL Red Blood Count 4.35 M/uL Hemoglobin 12.1 g/dL Hematocrit 37.3 % Mean Corpuscular Volume 85.7 fL Mean Corpuscular Hemoglobin 27.8 pg Mean Corpuscular Hemoglobin Concent 32.4 g/dl Platelet Count 237 K/uL Mean Platelet Volume 9.0 fL Neutrophils (%) (Auto) 53.6 % Lymphocytes (%) (Auto) 31.1 % Monocytes (%) (Auto) 10.0 % Eosinophils (%) (Auto) 4.5 % Basophils (%) (Auto) 0.3 % Neutrophils # (Auto) 3.06 K/uL Lymphocytes # (Auto) 1.78 K/uL Monocytes # (Auto) 0.57 K/uL Eosinophils # (Auto) 0.26 K/uL Basophils # (Auto) 0.02 K/uL RDW Standard Deviation 42.8 fL RDW Coefficient of Variation 13.6 % Immature Granulocyte % (Auto) 0.5 % Immature Granulocyte # (Auto) 0.03 K/uL Sodium Level 139 mmol/L Potassium Level 3.9 mmol/L Chloride Level 107 mmol/L Carbon Dioxide Level 28 mmol/L Anion Gap 4.0 mmol/L Blood Urea Nitrogen 11 mg/dl Creatinine 0.81 mg/dl Est Creatinine Clear Calc Drug Dose 170.9 ml/min Estimated GFR () 126.2 Estimated GFR (Non- 108.9 BUN/Creatinine Ratio 13.2 Random Glucose 106 mg/dl Calcium Level 8.6 mg/dl Magnesium Level 2.1 mg/dl Test 10/19/17 10:51 Bedside Glucose 118 mg/dl
--- NOTE | 2017-10-19 14:22 | Progress Note ---
Subjective Date of Service: Oct 19, 2017. Subjective Pt evaluation today including: conversation w/ patient, physical exam, chart review, lab review ct findings noted, still with pain, no open wounds. afebrile. tolerating abx, no f/c. denies drainage from wound. blood cultures negative to date. all remaining ros reviewed and are negative. Problem List Medical Problems: (1) Abdominal pain Status: Acute (2) Abdominal pain Status: Acute (3) Acute chest pain Status: Acute (4) Acute exacerbation of chronic low back pain Status: Acute (5) Acute exacerbation of chronic low back pain Status: Acute (6) Acute renal failure Status: Acute (7) Acute renal failure Status: Acute (8) Back pain Status: Acute (9) Back pain Status: Acute (10) Bilateral cellulitis of lower leg Status: Acute (11) Bilateral leg pain Status: Acute (12) Cellulitis of left elbow Status: Acute (13) Cellulitis of left foot Status: Acute (14) Cellulitis of left foot Status: Acute (15) Chest pain Status: Acute (16) Chest pain Status: Acute (17) Chest pain Status: Acute (18) Chest wall pain Status: Acute (19) Chronic abdominal pain Status: Acute (20) Chronic low back pain Status: Acute (21) Contusion of left leg Status: Acute (22) Cough Status: Acute (23) Dehydration Status: Acute (24) Dehydration Status: Acute (25) Dehydration Status: Acute (26) Dehydration Status: Acute (27) Depression Status: Chronic (28) Diabetes Status: Acute (29) DM type 2 (diabetes mellitus, type 2) Status: Chronic (30) DVT (deep venous thrombosis) Status: Acute (31) Elevated d-dimer Status: Acute (32) Encounter for smoking cessation counseling Status: Acute (33) Fall in home Status: Acute (34) Generalized abdominal pain Status: Acute (35) History of peripheral neuropathy Status: Acute (36) Hypotension Status: Acute (37) Intractable low back pain Status: Acute (38) Left arm pain Status: Acute (39) Left elbow pain Status: Acute (40) Left sided chest pain Status: Acute (41) Left sided chest pain Status: Acute (42) Left sided chest pain Status: Acute (43) Left sided numbness Status: Acute (44) Leg pain, left Status: Acute (45) [place] toxicity Status: Acute (46) retirement current use of anticoagulant therapy Status: Acute (47) Low back pain Status: Acute (48) Lower abdominal pain Status: Acute (49) Lower back pain Status: Acute (50) Lumbar contusion Status: Acute (51) Migraine Status: Acute (52) Nausea & vomiting Status: Acute (53) Nausea and vomiting Status: Acute (54) Nausea vomiting and diarrhea Status: Acute (55) Nicotine addiction Status: Acute (56) Pulmonary embolus Status: Acute (57) Renal insufficiency Status: Acute (58) Right ankle pain Status: Acute (59) Right elbow pain Status: Acute (60) Right lower quadrant abdominal pain Status: Acute (61) Suicidal ideation Status: Acute (62) Suicidal ideation Status: Acute (63) Suicidal ideation Status: Acute (64) Suicidal thoughts Status: Acute (65) Syncope Status: Acute (66) Tachycardia Status: Acute (67) Tachycardia Status: Acute (68) Vomiting Status: Acute (69) Weakness Status: Acute Objective Vital Signs Date Time Temp Pulse Resp B/P (MAP) Pulse Ox O2 Delivery O2 Flow Rate FiO2 10/19/17 12:00 Room Air 10/19/17 10:52 36.5 85 20 159/99 (119) 94 10/19/17 08:00 Room Air 10/19/17 07:31 36.6 85 20 152/90 (110) 95 10/19/17 04:00 Room Air 10/19/17 03:22 36.5 83 18 154/91 (112) 94 Room Air 10/18/17 23:59 Room Air 10/18/17 23:15 36.6 84 18 135/78 (97) 94 Room Air 10/18/17 20:00 94 Room Air 10/18/17 19:00 36.6 84 20 158/85 (109) 94 Room Air 10/18/17 16:00 Room Air 10/18/17 15:47 36.6 92 20 151/78 (102) 97 Room Air Physical Exam General Appearance: WD/WN, no apparent distress Eyes: normal inspection, EOMI Neck: supple Respiratory/Chest: lungs clear, normal breath sounds, no respiratory distress Cardiovascular: regular rate, rhythm, no edema Abdomen: soft Extremities: non-tender, no pedal edema Neurologic/Psychiatric: alert, oriented x 3 Skin: normal color, no rash Comments: left foot incision closed, healed, no induration, eryhema, Laboratory Results Item Value Date Time Blood Culture - Preliminary Resulted 10/16/172200 Blood NO GROWTH TO DATE. Blood Culture - Preliminary Resulted 10/16/172134 Blood NO GROWTH TO DATE. Last 24 Hours Test 10/18/17 15:52 10/18/17 19:53 10/19/17 06:41 10/19/17 06:44 Bedside Glucose 83 mg/dl 106 mg/dl 108 mg/dl White Blood Count 5.72 K/uL Red Blood Count 4.35 M/uL Hemoglobin 12.1 g/dL Hematocrit 37.3 % Mean Corpuscular Volume 85.7 fL Mean Corpuscular Hemoglobin 27.8 pg Mean Corpuscular Hemoglobin Concent 32.4 g/dl Platelet Count 237 K/uL Mean Platelet Volume 9.0 fL Neutrophils (%) (Auto) 53.6 % Lymphocytes (%) (Auto) 31.1 % Monocytes (%) (Auto) 10.0 % Eosinophils (%) (Auto) 4.5 % Basophils (%) (Auto) 0.3 % Neutrophils # (Auto) 3.06 K/uL Lymphocytes # (Auto) 1.78 K/uL Monocytes # (Auto) 0.57 K/uL Eosinophils # (Auto) 0.26 K/uL Basophils # (Auto) 0.02 K/uL RDW Standard Deviation 42.8 fL RDW Coefficient of Variation 13.6 % Immature Granulocyte % (Auto) 0.5 % Immature Granulocyte # (Auto) 0.03 K/uL Sodium Level 139 mmol/L Potassium Level 3.9 mmol/L Chloride Level 107 mmol/L Carbon Dioxide Level 28 mmol/L Anion Gap 4.0 mmol/L Blood Urea Nitrogen 11 mg/dl Creatinine 0.81 mg/dl Est Creatinine Clear Calc Drug Dose 170.9 ml/min Estimated GFR () 126.2 Estimated GFR (Non- 108.9 BUN/Creatinine Ratio 13.2 Random Glucose 106 mg/dl Calcium Level 8.6 mg/dl Magnesium Level 2.1 mg/dl Test 10/19/17 10:51 Bedside Glucose 118 mg/dl Assessment and Plan (1) Foot abscess Assessment & Plan: no clear evidence of ongoing infection but ct abnml. will change to po keflex and continue to follow at wound center as planned.
[2017-10-19 15:15] VITALS: BP 164/83; PULSE 92; TEMP 37; O2SAT 92
[2017-10-19] MEDS ORDERED: PANTOprazole SOD 40 MG TAB PO SCH (15:53)
--- NOTE | 2017-10-19 15:55 | Progress Note ---
Internal Med Progress Note Date of Service: Oct 19, 2017. Provider Documentation: SUBJECTIVE: resting comfortably on and off chest pain in mid sternum region and pain is more when he takes deep breath afebrile no sob has pain in his left foot OBJECTIVE: Vital Signs-as noted below Exam: General-alert and oriented. Not in distress ENT-Normal hearing Neck-no neck masses supple Lungs-cta b/l no wheezing no crackles Heart-S1 and S2 heard regular rate and rthym, no murmurs Abdomen-Soft bowel sounds present non tender no distension Extremities-left foot slightly swollen and erythematous dorsal aspect Neuro-alert and awake moves extremities Lab data as noted below. ASSESSMENT & PLAN: : This is a pleasant 41-year-old male with a history of diabetes, hypertension, dyslipidemia, smoker, recent deep venous thrombosis of left lower extremity, recent left foot infection presenting with increasing left foot pain and chest pain. 1. Possible recurrence of left foot infection, history of recent left foot infection status post irrigation and debridement August 2017 with osteomyelitis. Seen by ID ct scan shows cellulitis and difficult to exclude osteomyelitis will d/w ID - Id recommends doxycycline and out patient f/u Left-sided chest pain, rule out acute cardiac syndrome. serial ce negative ekg unremarkable echo unremarkable await cardio inputs-presumed PE not detectable on ct scan. On xarelto no further cardiac testing as per cardiology Possible esophagitis related chest pain. This has been seen on the CAT scan of the chest today. He uses Protonix 40 mg daily. No PE on ct scan. Recent left lower extremity superficial vein deep venous thrombosis, currently on Xarelto. We will continue his Xarelto 30 mg daily x15 days, then 20 mg daily. Diabetes type 2. Continue Lantus 50 twice a day. On insulin sliding scale.Consulted pharmacy for glycemic management. Hypertension. restart lisinopril. Will monitor Obstructive sleep apnea. Continue BiPAP. 7. Depression, stable. Continue Cymbalta and Abilify. 8. Deep venous thrombosis prophylaxis. On Xarelto. 9. Full code 10. Disposition: pt/ot possible d/c in am Vital Signs: Date Time Temp Pulse Resp B/P (MAP) Pulse Ox O2 Delivery O2 Flow Rate FiO2 10/19/17 15:15 37.0 92 18 164/83 (110) 92 Room Air 10/19/17 12:00 Room Air 10/19/17 10:52 36.5 85 20 159/99 (119) 94 10/19/17 08:00 Room Air 10/19/17 07:31 36.6 85 20 152/90 (110) 95 10/19/17 04:00 Room Air 10/19/17 03:22 36.5 83 18 154/91 (112) 94 Room Air 10/18/17 23:59 Room Air 10/18/17 23:15 36.6 84 18 135/78 (97) 94 Room Air 10/18/17 20:00 94 Room Air 10/18/17 19:00 36.6 84 20 158/85 (109) 94 Room Air 10/18/17 16:00 Room Air Lab Results: Results Past 24 Hours Test 10/18/17 15:52 10/18/17 19:53 10/19/17 06:41 10/19/17 06:44 Range/Units Bedside Glucose 83 106 108 70-99 mg/dl White Blood Count 5.72 4.8-10.8 K/uL Red Blood Count 4.35 4.7-6.1 M/uL Hemoglobin 12.1 14.0-18.0 g/dL Hematocrit 37.3 42-52 % Mean Corpuscular Volume 85.7 80-100 fL Mean Corpuscular Hemoglobin 27.8 25-34 pg Mean Corpuscular Hemoglobin Concent 32.4 32-36 g/dl Platelet Count 237 130-400 K/uL Mean Platelet Volume 9.0 7.4-10.4 fL Neutrophils (%) (Auto) 53.6 % Lymphocytes (%) (Auto) 31.1 % Monocytes (%) (Auto) 10.0 % Eosinophils (%) (Auto) 4.5 % Basophils (%) (Auto) 0.3 % Neutrophils # (Auto) 3.06 1.4-6.5 K/uL Lymphocytes # (Auto) 1.78 1.2-3.4 K/uL Monocytes # (Auto) 0.57 0.11-0.59 K/uL Eosinophils # (Auto) 0.26 0-0.5 K/uL Basophils # (Auto) 0.02 0-0.2 K/uL RDW Standard Deviation 42.8 36.4-46.3 fL RDW Coefficient of Variation 13.6 11.5-14.5 % Immature Granulocyte % (Auto) 0.5 % Immature Granulocyte # (Auto) 0.03 0.00-0.02 K/uL Sodium Level 139 136-145 mmol/L Potassium Level 3.9 3.5-5.1 mmol/L Chloride Level 107 98-107 mmol/L Carbon Dioxide Level 28 21-32 mmol/L Anion Gap 4.0 3-11 mmol/L Blood Urea Nitrogen 11 7-18 mg/dl Creatinine 0.81 0.60-1.40 mg/dl Est Creatinine Clear Calc Drug Dose 170.9 ml/min Estimated GFR () 126.2 Estimated GFR (Non- 108.9 BUN/Creatinine Ratio 13.2 10-20 Random Glucose 106 70-99 mg/dl Calcium Level 8.6 8.5-10.1 mg/dl Magnesium Level 2.1 1.8-2.4 mg/dl Test 10/19/17 10:51 Range/Units Bedside Glucose 118 70-99 mg/dl
[2017-10-19] MEDS ORDERED: LISINOPRIL 10 MG TAB PO ONE (16:30)
[2017-10-19 19:05] VITALS: BP 165/85; PULSE 88; TEMP 36.6; O2SAT 94
[2017-10-19] MEDS: ARIPIprazole TAB 10 MG TAB PO SCH (21:07)
[2017-10-19] MEDS: DOXYCYCLINE HYCLATE 100 MG CAP PO SCH (21:08)
[2017-10-19 23:27] VITALS: BP 152/68; PULSE 90; TEMP 36.6; O2SAT 92
[2017-10-20] VITALS (12 sets, daily range): BP systolic 109–178; BP diastolic 58–102; PULSE 50–103; TEMP 36.4–36.8; O2SAT 93–95
[2017-10-20] MEDS: HYDROmorphone INJ 0.5 MG/0.5 ML SYR IV PRN (01:28)
[2017-10-20] MEDS: SODIUM CHLORIDE 0.9% 1000ML 1,000 ML IV SCH (06:16)
[2017-10-20] MEDS: GABAPENTIN 600 MG TAB PO SCH ×3 (07:57→21:33)
[2017-10-20] MEDS: TRAMADOL HCL 50 MG TAB PO PRN (07:57)
[2017-10-20] MEDS: GABAPENTIN 400 MG CAP PO SCH ×3 (07:58→21:33)
[2017-10-20] MEDS: ATORVASTATIN 10 MG TAB PO SCH (07:58)
[2017-10-20] MEDS: DULOXETINE HCL 60 MG CAP PO SCH (07:58)
[2017-10-20] MEDS: ASPIRIN 81 MG ECTAB PO SCH (07:58)
[2017-10-20] MEDS: LISINOPRIL 10 MG TAB PO SCH (07:59)
[2017-10-20] MEDS: RIVAROXABAN TAB 15 MG TAB PO SCH ×2 (07:59→21:32)
[2017-10-20 08:00] LABS: BASO % 0.4 %; BASO ABS # 0.03 K/uL (0-0.2); EOS % 3.8 %; EOS ABS # 0.29 K/uL (0-0.5); HEMATOCRIT 36.8 % (42-52); HEMOGLOBIN 12.4 g/dL (14.0-18.0); IG# 0.03 K/uL (0.00-0.02); LYMPH % 26.1 %; LYMPH ABS # 2.02 K/uL (1.2-3.4); MEAN CELL VOLUME 85.2 fL (80-100); MEAN CORPUSCULAR HEMOGLOBIN 28.7 pg (25-34); MEAN CORPUSCULAR HGB CONC 33.7 g/dl (32-36); MEAN PLATELET VOLUME 8.7 fL (7.4-10.4); MONO % 8.4 %; MONO ABS # 0.65 K/uL (0.11-0.59); NEUT % 60.9 %; NEUT ABS # 4.71 K/uL (1.4-6.5); PLATELET COUNT 231 K/uL (130-400); RED CELL DISTRIBUTION WIDTH CV 13.5 % (11.5-14.5); RED CELL DISTRIBUTION WIDTH SD 42.4 fL (36.4-46.3); WHITE BLOOD COUNT 7.73 K/uL (4.8-10.8)
[2017-10-20] MEDS: DOCUSATE SODIUM/SENNA 50/8.6MG TAB PO SCH (08:00)
[2017-10-20] MEDS: DOXYCYCLINE HYCLATE 100 MG CAP PO SCH ×2 (08:00→21:33)
[2017-10-20] MEDS: PANTOprazole SOD 40 MG TAB PO SCH (08:00)
[2017-10-20] MEDS: INSULIN ASPART 100 UNITS/ML 3 ML PEN SC SCH ×4 (08:28→21:31)
[2017-10-20] MEDS: INSULIN GLARGINE SOLOSTAR 100 UNITS/ML 3 ML PEN SQ SCH ×2 (08:29→21:31)
[2017-10-20 09:04] LABS: CALCIUM 8.8 mg/dl (8.5-10.1); CREATININE 0.89 mg/dl (0.60-1.40); POTASSIUM 3.8 mmol/L (3.5-5.1)
[2017-10-20] MEDS ORDERED: VANCOMYCIN TROUGH ONE (09:30)
--- NOTE | 2017-10-20 15:07 | CONSULTATION REPORT ---
DATE OF CONSULTATION: 10/20/2017 HISTORY OF PRESENT ILLNESS: The patient is a 41-year-old white male known to the orthopedic service from previously having an I&D of his foot by Dr. Shafer, back in August, presents had increased pain and swelling in his foot. OBJECTIVE: Examination of his foot today reveals some swelling through the dorsum of his foot. No obvious abscess or areas of fluctuance. IMAGING Data: a CT scan revealed noted to be no evidence of area of fluctuance or fluid collection. IMPRESSION AND PLAN: The patient relates he is better, but he was able to walking on his heel and getting intravenous antibiotics. At this point, I do not see need for anything surgical. We have also discussed the case with Dr. Shafer. At this point, would recommend continued IV antibiotics and at this point nothing surgical as far as surgical intervention. We will follow with you. JENNIFER
--- NOTE | 2017-10-20 15:30 | Progress Note ---
Internal Med Progress Note Date of Service: Oct 20, 2017. Provider Documentation: SUBJECTIVE: resting comfortably on and off chest pain more with deep breath has pain in his left foot afebrile OBJECTIVE: Vital Signs-as noted below Exam: General-alert and oriented. Not in distress ENT-Normal hearing Neck-no neck masses supple Lungs-cta b/l no wheezing no crackles Heart-S1 and S2 heard regular rate and rthym, no murmurs Abdomen-Soft bowel sounds present non tender no distension Extremities-left foot slightly swollen and erythematous dorsal aspect Neuro-alert and awake moves extremities Lab data as noted below. ASSESSMENT & PLAN: : This is a pleasant 41-year-old male with a history of diabetes, hypertension, dyslipidemia, smoker, recent deep venous thrombosis of left lower extremity, recent left foot infection presenting with increasing left foot pain and chest pain. 1. Possible recurrence of left foot infection, history of recent left foot infection status post irrigation and debridement August 2017 with osteomyelitis. Seen by ID ct scan shows cellulitis and difficult to exclude osteomyelitis will d/w ID - Id recommends doxycycline and out patient f/u consulted ortho for ongoing pain in his left foot Left-sided chest pain, rule out acute cardiac syndrome. serial ce negative ekg unremarkable echo unremarkable await cardio inputs-presumed PE not detectable on ct scan. On xarelto no further cardiac testing as per cardiology stable Possible esophagitis related chest pain. This has been seen on the CAT scan of the chest today. He uses Protonix 40 mg daily. No PE on ct scan. Recent left lower extremity superficial vein deep venous thrombosis, currently on Xarelto. We will continue his Xarelto 30 mg daily x15 days, then 20 mg daily. Diabetes type 2. Continue Lantus 50 twice a day. On insulin sliding scale.Consulted pharmacy for glycemic management. Hypertension. restart lisinopril. Will monitor Obstructive sleep apnea. Continue BiPAP. Depression, stable. Continue Cymbalta and Abilify. Deep venous thrombosis prophylaxis. On Xarelto. Full code 10. Disposition: pt/ot transfer to medical floor Vital Signs: Date Time Temp Pulse Resp B/P (MAP) Pulse Ox O2 Delivery O2 Flow Rate FiO2 10/20/17 12:00 Room Air 10/20/17 11:31 160/76 (104) 10/20/17 11:15 36.7 92 18 177/95 (122) 93 Room Air 10/20/17 10:54 97 94 10/20/17 08:00 Room Air 10/20/17 07:39 36.5 80 20 125/69 (87) 95 Room Air 10/20/17 04:00 93 Room Air 10/20/17 03:17 36.8 84 22 147/82 (103) 93 Room Air 10/20/17 00:00 Room Air 10/19/17 23:27 36.6 90 20 152/68 (96) 92 Room Air 10/19/17 20:00 Room Air 10/19/17 19:05 36.6 88 20 165/85 (111) 94 Room Air 10/19/17 16:00 Room Air Lab Results: Results Past 24 Hours Test 10/19/17 16:08 10/19/17 20:10 10/20/17 06:45 10/20/17 07:32 Range/Units Bedside Glucose 118 114 127 70-99 mg/dl White Blood Count 7.73 4.8-10.8 K/uL Red Blood Count 4.32 4.7-6.1 M/uL Hemoglobin 12.4 14.0-18.0 g/dL Hematocrit 36.8 42-52 % Mean Corpuscular Volume 85.2 80-100 fL Mean Corpuscular Hemoglobin 28.7 25-34 pg Mean Corpuscular Hemoglobin Concent 33.7 32-36 g/dl Platelet Count 231 130-400 K/uL Mean Platelet Volume 8.7 7.4-10.4 fL Neutrophils (%) (Auto) 60.9 % Lymphocytes (%) (Auto) 26.1 % Monocytes (%) (Auto) 8.4 % Eosinophils (%) (Auto) 3.8 % Basophils (%) (Auto) 0.4 % Neutrophils # (Auto) 4.71 1.4-6.5 K/uL Lymphocytes # (Auto) 2.02 1.2-3.4 K/uL Monocytes # (Auto) 0.65 0.11-0.59 K/uL Eosinophils # (Auto) 0.29 0-0.5 K/uL Basophils # (Auto) 0.03 0-0.2 K/uL RDW Standard Deviation 42.4 36.4-46.3 fL RDW Coefficient of Variation 13.5 11.5-14.5 % Immature Granulocyte % (Auto) 0.4 % Immature Granulocyte # (Auto) 0.03 0.00-0.02 K/uL Sodium Level 137 136-145 mmol/L Potassium Level 3.8 3.5-5.1 mmol/L Chloride Level 103 98-107 mmol/L Carbon Dioxide Level 31 21-32 mmol/L Anion Gap 3.0 3-11 mmol/L Blood Urea Nitrogen 14 7-18 mg/dl Creatinine 0.89 0.60-1.40 mg/dl Est Creatinine Clear Calc Drug Dose 159.3 ml/min Estimated GFR () 121.4 Estimated GFR (Non- 104.7 BUN/Creatinine Ratio 16.2 10-20 Random Glucose 116 70-99 mg/dl Calcium Level 8.8 8.5-10.1 mg/dl Magnesium Level 2.0 1.8-2.4 mg/dl Test 10/20/17 11:26 Range/Units Bedside Glucose 129 70-99 mg/dl
[2017-10-20] MEDS ORDERED: CLONIDINE HCL 0.1 MG TAB PO PRN (18:30)
[2017-10-20] MEDS: ARIPIprazole TAB 10 MG TAB PO SCH (21:34)
[2017-10-21 06:07] LABS: BASO % 0.7 %; BASO ABS # 0.05 K/uL (0-0.2); EOS % 5.1 %; EOS ABS # 0.35 K/uL (0-0.5); HEMATOCRIT 38.1 % (42-52); HEMOGLOBIN 12.9 g/dL (14.0-18.0); IG# 0.04 K/uL (0.00-0.02); LYMPH % 28.8 %; LYMPH ABS # 1.99 K/uL (1.2-3.4); MEAN CELL VOLUME 84.9 fL (80-100); MEAN CORPUSCULAR HEMOGLOBIN 28.7 pg (25-34); MEAN CORPUSCULAR HGB CONC 33.9 g/dl (32-36); MEAN PLATELET VOLUME 8.8 fL (7.4-10.4); MONO ABS # 0.69 K/uL (0.11-0.59); NEUT % 54.8 %; NEUT ABS # 3.78 K/uL (1.4-6.5); PLATELET COUNT 249 K/uL (130-400); RED CELL DISTRIBUTION WIDTH CV 13.6 % (11.5-14.5); RED CELL DISTRIBUTION WIDTH SD 41.6 fL (36.4-46.3)
[2017-10-21 06:47] LABS: CALCIUM 8.9 mg/dl (8.5-10.1); CREATININE 0.87 mg/dl (0.60-1.40); POTASSIUM 3.8 mmol/L (3.5-5.1)
[2017-10-21 07:28] VITALS: BP 123/80; PULSE 81; TEMP 36.6; O2SAT 92
[2017-10-21] MEDS: GABAPENTIN 600 MG TAB PO SCH ×2 (08:35→13:14)
[2017-10-21] MEDS: DULOXETINE HCL 60 MG CAP PO SCH (08:35)
[2017-10-21] MEDS: DOXYCYCLINE HYCLATE 100 MG CAP PO SCH (08:35)
[2017-10-21] MEDS: ASPIRIN 81 MG ECTAB PO SCH (08:35)
[2017-10-21] MEDS: PANTOprazole SOD 40 MG TAB PO SCH (08:35)
[2017-10-21] MEDS: GABAPENTIN 400 MG CAP PO SCH ×2 (08:35→13:14)
[2017-10-21] MEDS: DOCUSATE SODIUM/SENNA 50/8.6MG TAB PO SCH (08:35)
[2017-10-21] MEDS: ATORVASTATIN 10 MG TAB PO SCH (08:35)
[2017-10-21] MEDS: LISINOPRIL 10 MG TAB PO SCH (08:36)
[2017-10-21] MEDS: RIVAROXABAN TAB 15 MG TAB PO SCH (08:36)
[2017-10-21] MEDS: INSULIN ASPART 100 UNITS/ML 3 ML PEN SC SCH ×2 (08:37→13:24)
[2017-10-21] MEDS: INSULIN GLARGINE SOLOSTAR 100 UNITS/ML 3 ML PEN SQ SCH (08:38)
[2017-10-21] MEDS: TRAMADOL HCL 50 MG TAB PO PRN (08:45)
--- NOTE | 2017-10-21 09:20 | Pharmacy Progress Note ---
Pharmacy Glycemic Short Note 2 Date of Service Oct 21, 2017. OUTPATIENT ANTIDIABETIC REGIMEN: * Lantus 50 units BID * Novolog 28 u AC ASSESSMENT: * Fasting BSG 130 mg/dL * Over the past 48 hours - pt has remained stable with BSGs ranging 108-165 mg/ dL * Pt has received a total of 100-130 units of insulin per day * Continue current regimen as pt is very well controlled PLAN FOR INPATIENT GLYCEMIC CONTROL: * Hold outpatient oral diabetes medications * Basal insulin * Lantus 30-40 units SQ BID * Bolus insulin * NovoLog per scale ACHS or Q6hrs while NPO * Goal Range: Low 110 mg/dL - High 140 mg/dL * Correction Factor: 10 mg/dL/unit * Nutritional / Prandial insulin per carb ratio of 1 unit per 4 grams CHO consumed
[2017-10-21] MEDS ORDERED: DXY100 PO (12:10)
[2017-10-21] MEDS ORDERED: PANT40TA PO (12:10)
--- NOTE | 2017-10-21 12:13 | Discharge Instructions ---
Discharge Instructions Date of Service Oct 21, 2017. Admission Reason for Admission: Cellulitis Of Left Foot Discharge Discharge Diagnosis / Problem: CELLULITIS LEFT FOOT Discharge Goals Goal(s): Decrease discomfort, Improve function Activity Recommendations Activity Limitations: resume your previous activity . Instructions / Follow-Up Instructions / Follow-Up FOLLOWUP WITH FAMILY DOCTOR Velasquez Roberts ON Oct AT 1:45PM FOLLOWUP WITH WOUND CLINIC AND id ON Oct AT 8:20AM DURATION OF ANTIBIOTIC PER . DURATION OF XARELTO FOR DVT( BLOOD CLOT IN THE LEG) PER FAMILY DOCTOR Current Hospital Diet Patient's current hospital diet: Diabetes Type 2 Diet Discharge Diet Recommended Diet: Diabetes Type 2 Diet Pending Studies Studies pending at discharge: no Laboratory Results Hemoglobin A1c Test 07/27/17 22:23 Range/Units Estimated Average Glucose 217 mg/dl Hemoglobin A1c 9.2 H 4.5-5.6 % Lipid Panel Test 07/29/17 07:27 Range/Units Triglycerides Level 263 H 0-150 mg/dl Cholesterol Level 207 H 0-200 mg/dl HDL Cholesterol 34 mg/dl Cholesterol/HDL Ratio 6.1 LDL Cholesterol, Calculated 120 mg/dl Medical Emergencies . Who to Call and When: Medical Emergencies: If at any time you feel your situation is an emergency, please call 911 immediately. . Non-Emergent Contact Non-Emergency issues call your: Primary Care Provider . . "Provider Documentation" section prepared by Hernan Busby. . VTE Core Measure Inpt VTE Proph given/why not?: Other Anticoagulation (XARELTO)
[2017-10-21 12:34] VITALS: BP 123/80; PULSE 81; TEMP 36.6; O2SAT 92
--- NOTE | 2017-10-21 19:50 | Progress Note ---
Internal Med Progress Note Date of Service: Oct 21, 2017. Provider Documentation: SUBJECTIVE: resting comfortably still has on and off chest pain more with deep breath has some pain in his left foot eating ok ok for discharge OBJECTIVE: Vital Signs-as noted below Exam: General-alert and oriented. Not in distress ENT-Normal hearing Neck-no neck masses supple Lungs-cta b/l no wheezing no crackles Heart-S1 and S2 heard regular rate and rthym, no murmurs Abdomen-Soft bowel sounds present non tender no distension Extremities-left foot slightly swollen and erythematous dorsal aspect-improved Neuro-alert and awake moves extremities Lab data as noted below. ASSESSMENT & PLAN: : This is a pleasant 41-year-old male with a history of diabetes, hypertension, dyslipidemia, smoker, recent deep venous thrombosis of left lower extremity, recent left foot infection presenting with increasing left foot pain and chest pain. 1. Possible recurrence of left foot infection, history of recent left foot infection status post irrigation and debridement August 2017 with osteomyelitis. Seen by ID ct scan shows cellulitis and difficult to exclude osteomyelitis will d/w ID - Id recommends doxycycline and out patient f/u consulted ortho for ongoing pain in his left foot- to continue abx d/c on doxycycline to followup with wound care next week Left-sided chest pain, rule out acute cardiac syndrome. serial ce negative ekg unremarkable echo unremarkable await cardio inputs-presumed PE not detectable on ct scan. On xarelto no further cardiac testing as per cardiology stable Possible esophagitis related chest pain. This has been seen on the CAT scan of the chest today. He uses Protonix 40 mg daily. No PE on ct scan. Recent left lower extremity superficial vein deep venous thrombosis, currently on Xarelto. We will continue his Xarelto 30 mg daily x15 days, then 20 mg daily.f/u with pcp Diabetes type 2. Continue Lantus 50 twice a day. On insulin sliding scale.Consulted pharmacy for glycemic management. Hypertension. restart lisinopril. Will monitor Obstructive sleep apnea. Continue BiPAP. Depression, stable. Continue Cymbalta and Abilify. Deep venous thrombosis prophylaxis. On Xarelto. discharged home Vital Signs: Date Time Temp Pulse Resp B/P (MAP) Pulse Ox O2 Delivery O2 Flow Rate FiO2 10/21/17 12:34 36.6 81 16 92 Room Air 10/21/17 11:09 Room Air 10/21/17 07:28 36.6 81 16 123/80 (94) 92 Room Air 10/21/17 00:00 Room Air 10/20/17 23:10 36.6 86 18 152/81 (104) 95 Room Air Lab Results: Results Past 24 Hours Test 10/21/17 05:34 10/21/17 08:00 10/21/17 12:00 Range/Units White Blood Count 6.90 4.8-10.8 K/uL Red Blood Count 4.49 4.7-6.1 M/uL Hemoglobin 12.9 14.0-18.0 g/dL Hematocrit 38.1 42-52 % Mean Corpuscular Volume 84.9 80-100 fL Mean Corpuscular Hemoglobin 28.7 25-34 pg Mean Corpuscular Hemoglobin Concent 33.9 32-36 g/dl Platelet Count 249 130-400 K/uL Mean Platelet Volume 8.8 7.4-10.4 fL Neutrophils (%) (Auto) 54.8 % Lymphocytes (%) (Auto) 28.8 % Monocytes (%) (Auto) 10.0 % Eosinophils (%) (Auto) 5.1 % Basophils (%) (Auto) 0.7 % Neutrophils # (Auto) 3.78 1.4-6.5 K/uL Lymphocytes # (Auto) 1.99 1.2-3.4 K/uL Monocytes # (Auto) 0.69 0.11-0.59 K/uL Eosinophils # (Auto) 0.35 0-0.5 K/uL Basophils # (Auto) 0.05 0-0.2 K/uL RDW Standard Deviation 41.6 36.4-46.3 fL RDW Coefficient of Variation 13.6 11.5-14.5 % Immature Granulocyte % (Auto) 0.6 % Immature Granulocyte # (Auto) 0.04 0.00-0.02 K/uL Sodium Level 138 136-145 mmol/L Potassium Level 3.8 3.5-5.1 mmol/L Chloride Level 103 98-107 mmol/L Carbon Dioxide Level 29 21-32 mmol/L Anion Gap 6.0 3-11 mmol/L Blood Urea Nitrogen 15 7-18 mg/dl Creatinine 0.87 0.60-1.40 mg/dl Est Creatinine Clear Calc Drug Dose 163.0 ml/min Estimated GFR () 122.5 Estimated GFR (Non- 105.7 BUN/Creatinine Ratio 17.5 10-20 Random Glucose 122 70-99 mg/dl Calcium Level 8.9 8.5-10.1 mg/dl Magnesium Level 1.9 1.8-2.4 mg/dl Bedside Glucose 130 82 70-99 mg/dl
--- NOTE | 2017-10-21 20:11 | Discharge Summary ---
Discharge Summary Date of Service Oct 21, 2017. Discharge Summary Admission Date: Oct 17, 2017 at 00:45 Discharge Date: Oct 21, 2017 Discharge Disposition: Home Principal Diagnosis: CHEST PAIN LEFT FOOT CELLULITIS Secondary Diagnoses/Problems: : Diabetes, hypertension, dyslipidemia, depression, DAMION, gastroparesis, irritable bowel syndrome, recent DVT left lower extremity, superficial femoral vein and recent left foot infection Procedures: LEFT VENOUS DOPPLER: Normal study CTA CHEST: 1. No evidence of pulmonary embolus. No acute intrathoracic pathology. 2. Hepatic steatosis. 3. Persistent mild distal esophageal wall thickening, which could suggest esophagitis. LOWER EXTREMITY CT: 1. Extensive soft tissue edema and subcutaneous fluid as above. The appearance is consistent with cellulitis. 2. No definite organized fluid collection is seen to indicate abscess. 3. Foci of bony abnormality are present at the base of the third proximal phalanx and involving the second middle phalanx. The appearance suggests nonunited fracture. Osteomyelitis would be impossible to exclude. Clinical correlation will be essential. ECHO: The study was technically limited, but adequate for the referral indication. * Sinus tachycardia at 105 bpm was present during the echocardiogram. * There is mild concentric left ventricular hypertrophy. * No regional wall motion abnormalities noted. * The left ventricle is hyperdynamic. * Ejection Fraction = 65-70%. * The right ventricle is mildly dilated. * The right ventricular systolic function is normal. * Doppler findings do not suggest pulmonary hypertension. * There is no pericardial effusion. * Compared to the prior recent echocardiogram dated 10/12/17, sinus tachycardia is now present. Consultations: CARDIOLOGY ID ORTHOPEDICS Medication Reconciliation New Medications: Doxycycline Hyclate (Doxycycline Hyclate) 100 Mg Cap 100 MG PO BID for 10 Days, CAP Continued Medications: Aripiprazole (Aripiprazole) 10 Mg Tab 10 MG PO HS Aspirin (Aspirin Ec) 81 Mg Tab 81 MG PO DAILY Atorvastatin (Lipitor) 10 Mg Tab 10 MG PO DAILY, TAB Duloxetine HCl (Duloxetine HCl) 60 Mg Cap 60 MG PO DAILY Gabapentin (Gabapentin) 400 Mg Cap 400 MG PO TID TAKE ONE 400 MG TABLET ALONG WITH ONE 600 MG TABLET TO EQUAL 1000 MG DOSE Gabapentin (Gabapentin) 600 Mg Tab 600 MG PO TID TAKE ONE 600 MG TABLET ALONG WITH ONE 400 MG TABLET TO EQUAL 1000 MG DOSE Insulin Aspart (Novolog Flexpen) 100 Units/Ml Inj 28 UNITS SC AC Insulin Glargine (Lantus Solostar) 100 Unit/Ml Inj 50 UNITS SC BID, PEN Lisinopril (Lisinopril) 10 Mg Tab 10 MG PO DAILY Nicotine Polacrilex (Nicorelief) 1 Piece Gum 1 PIECE PO UD PRN for Nicotine Craving Pantoprazole (Protonix) 40 Mg Tab 40 MG PO DAILY, #30 TAB 2 Refills (This prescription has been renewed) Polyethylene Glycol 3350 (Miralax) 1 Pow Pow 17 GM PO DAILY PRN for Constipation, GM Rivaroxaban (Xarelto Starter Pack 15 & 20 mg) 1 Tab Tab 15 MG PO UD for 30 Days, 3 Refills XARELTO 15MG PO TWICE DAILY X 21 DAYS THEN XARELTO 20MG PO ONCE DAILY Tramadol (Ultram) 50 Mg Tab 25 MG PO Q8H PRN for Pain, TAB Admission Information HPI (per Admitting provider): : The patient is a very pleasant 41-year-old male with a history of diabetes on insulin, hypertension, dyslipidemia, recent left infection recently diagnosed left lower extremity deep venous thrombosis, presenting with increasing left foot swelling, pain and redness x2-3 days. The patient follows with Dr. Valencia for primary care and Dr. Pino for ID. The patient was recently admitted to [facility], discharged on 10/12/2017, after being diagnosed with the left lower extremity deep venous thrombosis, currently on Xarelto. He follows up with Dr. Pino and was seen apparently a week ago and at that time was advised to discontinue the IV antibiotics and continue his p.o. antibiotic, the names of which the patient cannot recall but on the chart it says Bactrim. For the past 3 days, the patient noticed increased redness, swelling, tenderness and pain on the left foot again. Denies fever, chills, nausea but does have nausea and vomiting. Today the patient went to the store and upon going home noticed left-sided chest pain, pressure "someone sitting on my chest," nonradiating. No shortness of breath, palpitations, nausea, vomiting, or dizziness. Symptoms persisted prompting ER consult. At the ER, the patient's blood pressure on arrival was 122/77, pulse rate of 129, respiratory rate of 14, temperature of 36.5, saturating 96% on room air. The patient's CT chest did not show any pulmonary embolism. Cardiac markers x1 is negative. EKG did not show any signs of ischemia. The patient was given the following medications at the ER including morphine, Zofran, clindamycin and Maalox, lidocaine. On my exam, the patient is lying in bed, resting, not in distress. He states that his left-sided chest pain is about the same, nonradiating. No shortness of breath, dizziness, palpitations, nausea, or vomiting on my exam. The left foot pain is somewhat better after being given morphine. No other symptoms noted. Physical Exam (per Admitting): VITAL SIGNS: Blood pressure is 126/57, pulse 112, respiratory rate 14, temperature 36.5, saturating 95% on room air. GENERAL: The patient is awake, alert, oriented x3, not in distress, speaks in sentences. No accessory muscle use. HEAD AND NECK: Atraumatic and normocephalic. Normal pupils. Full EOMs. No icterus. [place] conjunctivae. ENT: Grossly normal. NECK: No JVD, no lymphadenopathy or thyromegaly. HEART: Normal rate. Regular rhythm. Good S1 and S2. No murmurs. No tenderness to chest palpation. LUNGS: Clear breath sounds bilaterally. No rales or wheezes. EXTREMITIES: Right lower extremity essentially normal. Left lower extremity, left foot, positive for moderate erythema and edema, and exquisite tenderness on light palpation. There is no seepage or drainage. No fluctuant mass that I could appreciate, some redness and erythema extends up to at least his distal left lower leg and ankles. NEUROLOGIC: No gross focal motor or sensory deficits Hospital Course : This is a pleasant 41-year-old male with a history of diabetes, hypertension, dyslipidemia, smoker, recent deep venous thrombosis of left lower extremity, recent left foot infection presenting with increasing left foot pain and chest pain. 1. Possible recurrence of left foot infection, history of recent left foot infection status post irrigation and debridement August 2017 with osteomyelitis. Seen by ID ct scan shows cellulitis and difficult to exclude osteomyelitis will d/w ID - Id recommends doxycycline and out patient f/u consulted ortho for ongoing pain in his left foot- to continue abx d/c on doxycycline to followup with wound care next week Left-sided chest pain, rule out acute cardiac syndrome. serial ce negative ekg unremarkable echo unremarkable await cardio inputs-presumed PE not detectable on ct scan. On xarelto no further cardiac testing as per cardiology stable Possible esophagitis related chest pain. This has been seen on the CAT scan of the chest today. He uses Protonix 40 mg daily. No PE on ct scan. Recent left lower extremity superficial vein deep venous thrombosis, currently on Xarelto. We will continue his Xarelto 30 mg daily x15 days, then 20 mg daily.f/u with pcp Diabetes type 2. Continue Lantus 50 twice a day. On insulin sliding scale.Consulted pharmacy for glycemic management. Hypertension. restart lisinopril. Will monitor Obstructive sleep apnea. Continue BiPAP. Depression, stable. Continue Cymbalta and Abilify. Deep venous thrombosis prophylaxis. On Xarelto. discharged home Total time spent on discharge = 35MINUTES This includes examination of the patient, discharge planning, medication reconciliation, and communication with other providers. Discharge Instructions Please take this sheet to every appointment for the next month Discharge Instructions Date of Service Oct 21, 2017. Admission Reason for Admission: Cellulitis Of Left Foot Discharge Discharge Diagnosis / Problem: CELLULITIS LEFT FOOT Discharge Goals Goal(s): Decrease discomfort, Improve function Activity Recommendations Activity Limitations: resume your previous activity . Instructions / Follow-Up Instructions / Follow-Up FOLLOWUP WITH FAMILY DOCTOR Velasquez Roberts ON Oct AT 1:45PM FOLLOWUP WITH WOUND CLINIC AND id ON Oct AT 8:20AM DURATION OF ANTIBIOTIC PER . DURATION OF XARELTO FOR DVT( BLOOD CLOT IN THE LEG) PER FAMILY DOCTOR Current Hospital Diet Patient's current hospital diet: Diabetes Type 2 Diet Discharge Diet Recommended Diet: Diabetes Type 2 Diet Pending Studies Studies pending at discharge: no Laboratory Results Hemoglobin A1c Test 07/27/17 22:23 Range/Units Estimated Average Glucose 217 mg/dl Hemoglobin A1c 9.2 H 4.5-5.6 % Lipid Panel Test 07/29/17 07:27 Range/Units Triglycerides Level 263 H 0-150 mg/dl Cholesterol Level 207 H 0-200 mg/dl HDL Cholesterol 34 mg/dl Cholesterol/HDL Ratio 6.1 LDL Cholesterol, Calculated 120 mg/dl Medical Emergencies . Who to Call and When: Medical Emergencies: If at any time you feel your situation is an emergency, please call 911 immediately. . Non-Emergent Contact Non-Emergency issues call your: Primary Care Provider . . "Provider Documentation" section prepared by Hernan Busby. . VTE Core Measure Inpt VTE Proph given/why not?: Other Anticoagulation (XARELTO)
[2017-10-22] MEDS ORDERED: DOXY1TAB6 PO (22:59)
[2017-10-22] MEDS ORDERED: PANT40TA PO (23:02)
== END 2017-10-21 13:25 | disposition home or self-care (01) | DRG 603 ==
LOC: C.EDB 21:10 → C.2T 10-17 00:45 → ENRESERV 10-17 01:19 → CANRESERV 10-17 01:19 → ENRESERV 10-17 02:04 → C.2T 10-20 01:59 → ENRESERV 10-20 16:33 → C.4E 10-20 18:08
PROVIDERS: ADMIT Internal Medicine; ATTEND Internal Medicine
DX: L03.116 Cellulitis of left lower limb (principal); K58.9 Irritable bowel syndrome, unspecified; E11.43 Type 2 diabetes mellitus with diabetic autonomic (poly)neuropathy; I10 Essential (primary) hypertension; F79 Unspecified intellectual disabilities; F17.210 Nicotine dependence, cigarettes, uncomplicated; E66.9 Obesity, unspecified; Z83.3 Family history of diabetes mellitus; Z79.4 Long term (current) use of insulin; K20.9 Esophagitis, unspecified; E78.5 Hyperlipidemia, unspecified; F32.9 Major depressive disorder, single episode, unspecified; Z79.01 Long term (current) use of anticoagulants; Z86.718 Personal history of other venous thrombosis and embolism; Z68.37 Body mass index [BMI] 37.0-37.9, adult

== ENCOUNTER 2017-10-22 22:09 | Emergency (ER) | payer OTHER ==
[~2017-10-22] VITALS: Ht 190.5 cm; Wt 133.6 kg
[~2017-10-22 22:09] MED LIST changes: +CYM60 PO; -DULO60CA44 PO; +DXY100 PO; -INSDGIPEN SC; +INSDGIPEN SQ; +LISI-461 PO; -LISI10TA PO; -NVLGI/PEN SC; +NVLGI/PEN SQ; +TRAM-10 PO; -ULT50 PO; +[UNRECOGNIZED DRUG - CODE] PO
[2017-10-22 22:11] VITALS: TEMP 36.4; Ht 190.5 cm; Wt 133.6 kg
[2017-10-22] MEDS ORDERED: ALUMINUM/MAGNESIUM SUSP 30 ML UDC PO STA (22:23)
[2017-10-22] MEDS ORDERED: LIDOCAINE HCL 2% VISC SOLN 20 ML UDC PO STA (22:23)
[2017-10-22 22:27] VITALS: O2SAT 98
[2017-10-22 22:33] LABS: BASO % 0.5 %; BASO ABS # 0.05 K/uL (0-0.2); EOS % 2.6 %; EOS ABS # 0.27 K/uL (0-0.5); HEMATOCRIT 44.4 % (42-52); HEMOGLOBIN 15.1 g/dL (14.0-18.0); IG# 0.07 K/uL (0.00-0.02); LYMPH % 13.4 %; LYMPH ABS # 1.39 K/uL (1.2-3.4); MEAN CELL VOLUME 86.2 fL (80-100); MEAN CORPUSCULAR HEMOGLOBIN 29.3 pg (25-34); MEAN PLATELET VOLUME 8.9 fL (7.4-10.4); MONO % 6.7 %; MONO ABS # 0.69 K/uL (0.11-0.59); NEUT % 76.1 %; NEUT ABS # 7.88 K/uL (1.4-6.5); PLATELET COUNT 292 K/uL (130-400); RED CELL DISTRIBUTION WIDTH CV 13.7 % (11.5-14.5); RED CELL DISTRIBUTION WIDTH SD 43.3 fL (36.4-46.3); WHITE BLOOD COUNT 10.35 K/uL (4.8-10.8)
[2017-10-22 22:51] LABS: ALBUMIN 3.6 gm/dl (3.4-5.0); ALT/SGPT 34 U/L (12-78); BLOOD UREA NITROGEN 19 mg/dl (7-18); CALCIUM 8.9 mg/dl (8.5-10.1); CARBON DIOXIDE 30 mmol/L (21-32); CREATININE 0.84 mg/dl (0.60-1.40); GLUCOSE 154 mg/dl (70-99); LIPASE 107 U/L (73-393); POTASSIUM 3.6 mmol/L (3.5-5.1); SODIUM 138 mmol/L (136-145)
[2017-10-22 22:56] LABS: ALKALINE PHOSPHATASE 67 U/L (45-117); AST/SGOT 19 U/L (15-37)
[2017-10-22] MEDS ORDERED: DOXY1TAB6 PO (22:59)
[2017-10-22] MEDS ORDERED: PANT40TA PO (23:02)
--- NOTE | 2017-10-22 23:16 | DIAGNOSTIC IMAGING REPORT ---
CHEST ONE VIEW PORTABLE CLINICAL HISTORY: Chest pain. COMPARISON STUDY: Chest CT October 16, 2017. FINDINGS: Lung volumes are at the lower limits of normal. This is unchanged. No pneumothorax or pleural effusion is present. There is no consolidation to suggest pneumonia. There is no evidence of pulmonary edema. Interstitial prominence is unchanged. IMPRESSION: No acute cardiopulmonary findings. Electronically signed by: Serge Ghotra M.D. 10/22/2017 11:15 PM Dictated Date/Time: 10/22/2017 11:13 PM
[2017-10-23] MEDS ORDERED: SUCRALFATE 1 GM/10 ML UDC PO STA (00:48)
--- NOTE | 2017-10-23 00:57 | EMERGENCY ROOM VISIT NOTE ---
History First contact with patient: 22:20 Chief Complaint: CHEST PAIN Stated Complaint: SEVERE CHEST AND R LEG PAIN Nursing Triage Summary: c/o cp and right leg pain just dced from [facility] yesterday. History of Present Illness The patient is a 41 year old male who presents to the Emergency Room with complaints of epigastric right-sided chest pain for the past few hours described as discomfort, ranging in severity currently 5 out of 10 who also complains of right calf pain for the past day. Nothing makes it better or worse. He has not missed any doses of his around toe. He had a chest CTA a couple days ago that was negative for PE. He is currently on doxycycline for cellulitis of the left lower leg. He states this is improving. Patient denies dyspnea, back pain, cold symptoms, abdominal pain, vomiting, diarrhea, black or blood in her stool. Review of Systems See HPI for pertinent positives & negatives. A total of 10 systems reviewed and were otherwise negative. Past Medical/Surgical History Medical Problems: (1) Depression (2) Depression (3) DM type 2 (diabetes mellitus, type 2) (4) DVT, lower extremity, proximal, acute (5) Foot abscess (6) Gastroparesis (7) HTN (hypertension) (8) IBS (irritable bowel syndrome) (9) Intellectual disability (10) Intellectual disability (11) Lumbago (12) Mental retardation (13) Nicotine abuse (14) Nicotine dependence (15) NSVT (nonsustained ventricular tachycardia) (16) Obesity (17) Obstructive sleep apnea (18) Sepsis (19) Stroke-like symptoms Surgical Problems: (1) S/P left knee arthroscopy (2) S/P tonsillectomy Social History Problems: (1) Alcohol abuse Family History Cancer Diabetes mellitus MOTHER GRANDMOTHER UNCLE AUNT Gallbladder disease Heart disease Hypertension MOTHER FATHER Lung disease Social History Smoking Status: Current Every Day Smoker Alcohol Use: heavy Drug Use: none Marital Status: Housing Status: lives with family Occupation Status: employed, other Current/Historical Medications Scheduled Aripiprazole (Aripiprazole), 10 MG PO HS Aspirin (Aspirin Ec), 81 MG PO DAILY Atorvastatin (Lipitor), 10 MG PO DAILY Doxycycline Hyclate (Doxycycline Hyclate), 100 MG PO BID Duloxetine HCl (Duloxetine HCl), 60 MG PO DAILY Gabapentin (Gabapentin), 400 MG PO TID Gabapentin (Gabapentin), 600 MG PO TID Insulin Aspart (Novolog Flexpen), 28 UNITS SQ AC Insulin Glargine (Lantus Solostar), 50 UNITS SQ BID Lisinopril (Lisinopril), 10 MG PO DAILY Pantoprazole (Protonix), 40 MG PO DAILY Rivaroxaban (Xarelto Starter Pack 15 & 20 mg), 15 MG PO UD Scheduled PRN Nicotine Polacrilex (Nicorelief), 1 PIECE PO UD PRN for Nicotine Craving Polyethylene Glycol 3350 (Miralax), 17 GM PO DAILY PRN for Constipation Tramadol (Ultram), 25 MG PO Q8H PRN for Pain Physical Exam Vital Signs Date Time Temp Pulse Resp B/P (MAP) Pulse Ox O2 Delivery O2 Flow Rate FiO2 10/23/17 01:00 110 18 91/50 95 Room Air 10/23/17 00:14 107 18 117/56 94 Room Air 10/22/17 23:39 115 18 127/58 97 Room Air 10/22/17 22:30 118 20 122/73 98 Room Air 10/22/17 22:29 98 Room Air 10/22/17 22:27 98 Room Air 10/22/17 22:27 98 Room Air 10/22/17 22:23 121 10/22/17 22:11 36.4 120 20 126/72 96 Room Air Physical Exam VITALS: Vitals are noted on the nurse's note and reviewed by myself. Vital signs mildly tachycardic GENERAL: Anxious appearing White male, in no acute distress, nondiaphoretic, well-developed well-nourished. SKIN: The skin was without rashes, erythema, edema, or bruising. There is no tenting of the skin. Capillary reflex less than 2 seconds. HEAD: Normocephalic atraumatic. EARS: External auditory canals clear, tympanic membranes pearly luque without erythema or effusion bilaterally. EYES: Pupils equal round and reactive to light and accommodation. Conjunctivae without injection, sclerae without icterus. Extraocular movements intact. NOSE: Patent, turbinates without inflammation or discharge. MOUTH: Mucous membranes moist. Pharynx without erythema or exudate. Uvula midline. Airway patent. Tongue does not deviate. NECK: Supple without nuchal rigidity. No lymphadenopathy. No thyromegaly. Cervical spine is nontender. No JVD. HEART tachycardic rate and rhythm chest nontender to palpation LUNGS: Clear to auscultation bilaterally without wheezes, rales or rhonchi. No dullness to percussion. No retractions or accessory muscle use. ABDOMEN: Positive bowel sounds x 4. Normal tympanic percussion. Soft, minimally tender epigastric region, no CVA tenderness, without masses or organomegaly. Protuberant, obese, No guarding or rebound tenderness. MUSCULOSKELETAL: No muscle atrophy, or edema noted. Right calf Tender to palpation. Left foot slightly erythematous improving per patient. NEURO: Patient was alert and oriented to person place and time. Normal sensation to light and sharp touch. No focal neurological deficits. Medical Decision & Procedures Laboratory Results 10/22/17 22:22 Red Blood Count 5.15, Mean Corpuscular Volume 86.2, Mean Corpuscular Hemoglobin 29.3, Mean Corpuscular Hemoglobin Concent 34.0, Mean Platelet Volume 8.9, Neutrophils (%) (Auto) 76.1, Lymphocytes (%) (Auto) 13.4, Monocytes (%) (Auto) 6.7, Eosinophils (%) (Auto) 2.6, Basophils (%) (Auto) 0.5, Neutrophils # (Auto) 7.88, Lymphocytes # (Auto) 1.39, Monocytes # (Auto) 0.69, Eosinophils # (Auto) 0.27, Basophils # (Auto) 0.05 10/22/17 22:22 Test 10/22/17 22:22 10/23/17 00:32 White Blood Count 10.35 K/uL (4.8-10.8) Red Blood Count 5.15 M/uL (4.7-6.1) Hemoglobin 15.1 g/dL (14.0-18.0) Hematocrit 44.4 % (42-52) Mean Corpuscular Volume 86.2 fL (80-100) Mean Corpuscular Hemoglobin 29.3 pg (25-34) Mean Corpuscular Hemoglobin Concent 34.0 g/dl (32-36) Platelet Count 292 K/uL (130-400) Mean Platelet Volume 8.9 fL (7.4-10.4) Neutrophils (%) (Auto) 76.1 % Lymphocytes (%) (Auto) 13.4 % Monocytes (%) (Auto) 6.7 % Eosinophils (%) (Auto) 2.6 % Basophils (%) (Auto) 0.5 % Neutrophils # (Auto) 7.88 K/uL (1.4-6.5) Lymphocytes # (Auto) 1.39 K/uL (1.2-3.4) Monocytes # (Auto) 0.69 K/uL (0.11-0.59) Eosinophils # (Auto) 0.27 K/uL (0-0.5) Basophils # (Auto) 0.05 K/uL (0-0.2) RDW Standard Deviation 43.3 fL (36.4-46.3) RDW Coefficient of Variation 13.7 % (11.5-14.5) Immature Granulocyte % (Auto) 0.7 % Immature Granulocyte # (Auto) 0.07 K/uL (0.00-0.02) Anion Gap 6.0 mmol/L (3-11) Est Creatinine Clear Calc Drug Dose 167.0 ml/min Estimated GFR () 124.3 Estimated GFR (Non- 107.2 BUN/Creatinine Ratio 22.2 (10-20) Calcium Level 8.9 mg/dl (8.5-10.1) Total Bilirubin 0.5 mg/dl (0.2-1) Direct Bilirubin < 0.1 mg/dl (0-0.2) Aspartate Amino Transf (AST/SGOT) 19 U/L (15-37) Alanine Aminotransferase (ALT/SGPT) 34 U/L (12-78) Alkaline Phosphatase 67 U/L (45-117) Troponin I < 0.015 ng/ml (0-0.045) Total Protein 8.0 gm/dl (6.4-8.2) Albumin 3.6 gm/dl (3.4-5.0) Lipase 107 U/L (73-393) Bedside Troponin I < 0.030 ng/ml (0-0.045) Medications Administered Medications (Trade) Dose Ordered Sig/Mario Alberto Route Start Time Stop Time Status Last Admin Dose Admin Lidocaine HCl (Viscous Lidocaine 2% Soln) 10 ml NOW STAT PO 10/22/17 22:23 10/22/17 22:25 DC 10/22/17 22:34 10 ML Al Hydroxide/Mg Hydroxide (Maalox Susp) 30 ml NOW STAT PO 10/22/17 22:23 10/22/17 22:26 DC 10/22/17 22:33 30 ML Sucralfate (Carafate Susp) 1 gm NOW STAT PO 10/23/17 00:48 10/23/17 00:49 DC 10/23/17 00:58 1 GM ED Course Prior records/ancillary studies reviewed. Triage Nursing notes reviewed. The patient's history was concerning for epigastric right-sided chest pain and right calf pain who is currently on Xarelto and has not missed any doses and is on doxycycline for left foot cellulitis. Differential diagnosis: Etiologies such as cholecystitis, esophagitis, cardiac ischemia, aortic dissection, pulmonary embolism, pneumonia, pneumothorax, musculoskeletal, infections, pericarditis, myocarditis, esophageal rupture, gastrointestinal, as well as others were entertained. Physical examination: As above. ER treatment provided: GI cocktail On reassessment the patient felt better. Diagnostic interpretation by me: The electrocardiogram was negative for pathologic change. Poor baseline, normal sinus, normal intervals, no acute ST-T wave changes, rate of 119. Impression sinus tachycardia interpreted by myself The labs revealed 2 negative troponins that was greater than 2 hours apart. Hyperglycemia without DKA Imaging studies: Chest x-ray [~ rep ct add3]] CHEST ONE VIEW PORTABLE CLINICAL HISTORY: Chest pain. COMPARISON STUDY: Chest CT October 16, 2017. FINDINGS: Lung volumes are at the lower limits of normal. This is unchanged. No pneumothorax or pleural effusion is present. There is no consolidation to suggest pneumonia. There is no evidence of pulmonary edema. Interstitial prominence is unchanged. IMPRESSION: No acute cardiopulmonary findings. Electronically signed by: Serge Ghotra M.D. Ultrasound of the gallbladder and legs were negative for DVT and cholecystitis per radiology COMPARISON: 10/09/2017. CT DOSE (mGy.cm): The estimated cumulative dose is 682.88 mGy.cm. FINDINGS: Trolley Cleaner topogram: Unremarkable. Pulmonary vasculature: The study is suboptimal for the assessment of the pulmonary vascular tree secondary to timing of the contrast bolus. Allowing for limited image quality, no central filling defect to suggest pulmonary embolus. Main pulmonary artery is not enlarged. No flattening of the interventricular septum. No intracardiac filling defect. No reflux of contrast into the hepatic veins. Remaining chest: On soft tissue windows, normal thyroid and thoracic inlet. No axillary, supraclavicular, hilar, or mediastinal lymphadenopathy. Normal aorta. Normal heart size. No pericardial or pleural effusion. Mild distal esophageal wall thickening again suggested. Hepatic steatosis. On lung windows, calcified granuloma noted in the right lower lobe. Mild mosaic attenuation, which could suggest small airways disease. Minimal dependent atelectasis. No other focal infiltrate or nodule. Minimal adherent debris in the upper trachea. On bone windows, degenerative changes of the thoracic spine. IMPRESSION: 1. No evidence of pulmonary embolus. No acute intrathoracic pathology. 2. Hepatic steatosis. 3. Persistent mild distal esophageal wall thickening, which could suggest esophagitis. Electronically signed by: Delgado Diaz M.D. Interpretation Summary Name: ROBERT BARAJAS JR Study Date: 10/17/2017 11:26 AM BP: 120/72 mmHg Patient Location: [facility]\S\E220\S\1 HR: 97 : 1975 (M/d/yyyy) Gender: Male Height: 75 in Age: 41 yrs Ethnicity: [place] Weight: 272 lb Ordering Physician: Eugenio Salvador Referring Physician: Self, Referred Performed By: Elsie Fang [facility] Reason For Study: Chest Pain BSA: 2.5 m2 -- Conclusions -- The study was technically limited, but adequate for the referral indication. Sinus tachycardia at 105 bpm was present during the echocardiogram. There is mild concentric left ventricular hypertrophy. No regional wall motion abnormalities noted. The left ventricle is hyperdynamic. Ejection Fraction = 65-70%. The right ventricle is mildly dilated. The right ventricular systolic function is normal. Doppler findings do not suggest pulmonary hypertension. There is no pericardial effusion. Compared to the prior recent echocardiogram dated 10/12/17, sinus tachycardia is now present. Procedure Details A complete two-dimensional transthoracic echocardiogram was performed (2D, M- mode, Doppler and color flow Doppler). The study was technically difficult. There were technical limitations due to patient'sbody habitus A contrast injection of Definity was performed to improve assessment of LV function. Contrast was injected into an intravenous site in the left arm. One vial of Definity ultrasound contrast was diluted in normal saline to a total volume of 10 ml. A total of '1' ml of solution was administered during imaging. Lot # [id number] of Definity utilized for procedure. Expiration date . The attending nurse who injected the contrast agent was Will Saxena RN. Left Ventricle The left ventricle is normal in size. There is mild concentric left ventricular hypertrophy. The left ventricle is hyperdynamic. Ejection Fraction = 65-70%. The left ventricular wall motion is normal. No regional wall motion abnormalities noted. Right Ventricle The right ventricle is mildly dilated. The right ventricular systolic function is normal. Atria The left atrial size is normal. Right atrial size is normal. There is no evidence of atrial septal defect, but resolution does not allow assessment for a patent foramen ovale. Mitral Valve The mitral valve is normal. There is no mitral valve stenosis. Significant mitral regurgitation is absent. Tricuspid Valve The tricuspid valve is normal. There is no tricuspid stenosis. Significant tricuspid regurgitation is absent. Doppler findings do not suggest pulmonary hypertension. Aortic Valve The aortic valve is trileaflet. Aortic stenosis is absent. There is no significant aortic regurgitation. Pulmonic Valve The pulmonary valve is not well seen, but the Doppler examination is normal without significant regurgitation or stenosis. Great Vessels The aortic root and proximal ascending aorta are normal sized. Pericardium/Pleural There is no pericardial effusion. Great Vessels Normal inferior vena cava diameter and respiratory variation suggests normal central venous pressure. Normal inferior vena cava size and collapsability with sniff indicates a normal right atrial pressure of 3 mmHg MMode 2D Measurements and Calculations IVSd 1.2 cm IVSs 1.5 cm LVIDd 3.9 cm LVIDs 2.4 cm LVPWd 1.1 cm LVPWs 1.4 cm IVS/LVPW 1.2 FS 37.5 % EDV(Teich) 64.0 ml ESV(Teich) 20.3 ml EF(Teich) 68.2 % EDV(cubed) 57.2 ml ESV(cubed) 14.0 ml EF(cubed) 75.6 % % IVS thick 18.9 % % LVPW thick 31.1 % LV mass(C)d 148.8 grams LV mass(C)dI 59.5 grams/m\S\2 LV mass(C)s 112.8 grams LV mass(C)sI 45.1 grams/m\S\2 SV(Teich) 43.7 ml SI(Teich) 17.5 ml/m\S\2 SV(cubed) 43.2 ml SI(cubed) 17.3 ml/m\S\2 Ao root diam 3.5 cm Ao root area 9.5 cm\S\2 ACS 1.5 cm LA dimension 3.8 cm asc Aorta Diam 2.6 cm LA/Ao 1.1 EDV(MOD-sp4) 130.0 ml ESV(MOD-sp4) 65.0 ml EF(MOD-sp4) 50.0 % EDV(MOD-sp2) 150.0 ml ESV(MOD-sp2) 66.0 ml EF(MOD-sp2) 56.0 % SV(MOD-sp4) 65.0 ml SI(MOD-sp4) 26.0 ml/m\S\2 SV(MOD-sp2) 84.0 ml SI(MOD-sp2) 33.6 ml/m\S\2 Doppler Measurements and Calculations MV E max ernesto 107.0 cm/sec MV A max ernesto 79.2 cm/sec MV E/A 1.4 MV P1/2t max ernesto 122.9 cm/sec MV P1/2t 53.7 msec MVA(P1/2t) 4.1 cm\S\2 MV dec slope 670.2 cm/sec\S\2 MV dec time 0.18 sec Ao V2 max 168.6 cm/sec Ao max PG 11.4 mmHg Ao max PG (full) 6.3 mmHg LV V1 max PG 5.1 mmHg LV V1 max 112.7 cm/sec PA V2 max 141.5 cm/sec PA max PG 8.0 mmHg TR max ernesto 150.4 cm/sec Created: Initialized: 10/17/17; 1310<Electronically signed by Eugenio Salvador D.O.>Signed: 10/17/17 1414 Eugenio Salvador D.O. The status of this report is Signed.Draft = Not yet reviewed or approved by [employer].Signed = Reviewed and approved by [employer]. Exam and history seem consistent with chest pain most likely related to patient' s known esophagitis. He is currently on doxycycline for cellulitis and this could exacerbate his esophagitis. He was advised to continue his PPI and to take Maalox or Zantac for break his symptoms. Patient had echo twice within the past month with no acute findings noted. He's had 2 CTAs this past month which were negative for PE. He has not missed any doses of his Xarelto. He had a normal EKG. 2 negative troponins. Negative ultrasound for DVT. He was advised to follow-up with family care in a day or 2 or here in the ER sooner for chest pain, difficulty breathing, worsening signs or symptoms or as needed. By the evaluation outlined above emergent etiologies such as cardiac ischemia, aortic dissection, pulmonary embolism, pneumonia, pneumothorax, infections, pericarditis, myocarditis, gastrointestinal, as well as others were deemed relatively unlikely. Patient is quite anxious appearing. By chart review he is chronically tachycardic. The pt informed about the findings as listed above. All questions were answered and pleased with the treatment. Return instructions were outlined and the patient was discharged in stable condition. Referral: The patient was referred back to primary care physician for follow-up in 2 to 3 days for a recheck of the current condition. Case reviewed with my attending Medical Decision As above Medication Reconcilliation Current Medication List: was personally reviewed by me Blood Pressure Screening Patient's blood pressure: Normal blood pressure Impression Primary Impression: Precordial chest pain Additional Impression: Right calf pain Departure Information Dispostion Home / Self-Care Condition GOOD Referrals No Doctor, Assigned (PCP) Patient Instructions My [facility] Additional Instructions Try Maalox or Zantac for breakthrough symptoms for reflux. Avoid large meals. Avoid acidic foods. Rest and drink plenty of fluids as tolerated. Continue current medications. Avoid strenuous activities and anything that worsens your pain. Resume normal activities once your symptoms resolve. Return to the ER immediately for worsening or persistent chest pain, abdominal pain, black or blood in your stools, vomiting, fevers, chest pains, difficulty breathing, worsening of your condition, or as needed. Follow up with your primary physician in 2-3 days for a recheck of your current condition. Problem Qualifiers
[2017-10-23 01:02] VITALS: BP 112/47; PULSE 109; O2SAT 95
--- NOTE | 2017-10-23 06:27 | DIAGNOSTIC IMAGING REPORT ---
BILIARY ULTRASOUND CLINICAL HISTORY: Epigastric abdominal pain COMPARISON STUDY: CT scan dated 08/08/2017 FINDINGS: The pancreas was nonvisualized. There is increased hepatic echogenicity, consistent with hepatic steatosis. There is focal fatty sparing adjacent to the gallbladder. No gallstones are identified. There is no gallbladder wall thickening. There is no pericholecystic fluid. The common bile duct measures 4 mm. There is no right-sided hydronephrosis. IMPRESSION: 1. Hepatic steatosis 2. Ultrasonographically normal gallbladder 3. No ductal dilatation 4. Nondiagnostic evaluation of the pancreas Electronically signed by: Ortiz Driscoll M.D. 10/23/2017 6:25 AM Dictated Date/Time: 10/23/2017 6:24 AM
--- NOTE | 2017-10-23 06:38 | DIAGNOSTIC IMAGING REPORT ---
ULTRASOUND VENOUS DOPPLER LWR EXT BILA CLINICAL HISTORY: Calf pain COMPARISON STUDY: June 14, 2017 FINDINGS: Real-time and color flow Doppler imaging were performed. Flow was seen within the femoral, popliteal and calf veins with no intraluminal thrombus demonstrated. The saphenous vein is patent. The technologist notes that the examination was difficult from a technical study as the patient was unable to fully cooperate. IMPRESSION: No evidence of lower extremity DVT. Electronically signed by: Ortiz Driscoll M.D. 10/23/2017 6:37 AM Dictated Date/Time: 10/23/2017 6:36 AM
== END 2017-10-23 01:14 | disposition home or self-care (01) ==
LOC: C.EDB 22:11 → C.EDA 10-23 01:14
DX: R07.2 Precordial pain (principal); M79.661 Pain in right lower leg; F32.9 Major depressive disorder, single episode, unspecified; E11.9 Type 2 diabetes mellitus without complications; Z86.718 Personal history of other venous thrombosis and embolism; I10 Essential (primary) hypertension; K58.9 Irritable bowel syndrome, unspecified; F79 Unspecified intellectual disabilities; G47.33 Obstructive sleep apnea (adult) (pediatric); E66.9 Obesity, unspecified; F17.210 Nicotine dependence, cigarettes, uncomplicated; Z80.9 Family history of malignant neoplasm, unspecified; Z83.3 Family history of diabetes mellitus; Z83.79 Family history of other diseases of the digestive system; Z82.49 Family history of ischemic heart disease and other diseases of the circulatory system; Z83.6 Family history of other diseases of the respiratory system; Z79.01 Long term (current) use of anticoagulants; Z79.82 Long term (current) use of aspirin; Z79.4 Long term (current) use of insulin; Z79.899 Other long term (current) drug therapy

== ENCOUNTER 2017-10-27 11:31 | Inpatient (IN) | payer OTHER ==
[~2017-10-27] VITALS: Ht 190.5 cm; Wt 134.8 kg
[~2017-10-27 11:31] MED LIST changes: +DOXY1TAB6 PO; -DXY100 PO
[2017-10-27] MEDS ORDERED: ACETAMINOPHEN 500 MG TAB PO STA (12:24)
[2017-10-27] MEDS ORDERED: ONDANSETRON INJ 2 MG/ML 2 ML VIAL IV STA (12:24)
[2017-10-27] MEDS ORDERED: OPTIRAY 320 IV PRN (12:30)
[2017-10-27 12:47] LABS: BASO % 0.6 %; BASO ABS # 0.05 K/uL (0-0.2); EOS ABS # 0.18 K/uL (0-0.5); HEMATOCRIT 41.3 % (42-52); IG# 0.04 K/uL (0.00-0.02); LYMPH % 18.3 %; LYMPH ABS # 1.65 K/uL (1.2-3.4); MEAN CORPUSCULAR HEMOGLOBIN 28.8 pg (25-34); MEAN CORPUSCULAR HGB CONC 33.9 g/dl (32-36); MEAN PLATELET VOLUME 9.1 fL (7.4-10.4); MONO % 6.8 %; MONO ABS # 0.61 K/uL (0.11-0.59); NEUT % 71.9 %; NEUT ABS # 6.48 K/uL (1.4-6.5); PLATELET COUNT 287 K/uL (130-400); RED CELL DISTRIBUTION WIDTH CV 13.4 % (11.5-14.5); RED CELL DISTRIBUTION WIDTH SD 41.8 fL (36.4-46.3); WHITE BLOOD COUNT 9.01 K/uL (4.8-10.8)
[2017-10-27 12:55] LABS: ALBUMIN 3.6 gm/dl (3.4-5.0); ALT/SGPT 39 U/L (12-78); AST/SGOT 20 U/L (15-37); BLOOD UREA NITROGEN 18 mg/dl (7-18); CARBON DIOXIDE 24 mmol/L (21-32); CREATININE 0.78 mg/dl (0.60-1.40); GLUCOSE 165 mg/dl (70-99); LIPASE 197 U/L (73-393); POTASSIUM 4.4 mmol/L (3.5-5.1); SODIUM 137 mmol/L (136-145)
[2017-10-27 12:56] LABS: PTT PATIENT 27.9 SECONDS (21.0-31.0)
--- NOTE | 2017-10-27 12:58 | EMERGENCY ROOM VISIT NOTE ---
History Report prepared by Marianela: Macy Johnston Under the Supervision of: Dr. Red Dickey M.D. First contact with patient: 12:02 Chief Complaint: CHEST PAIN Stated Complaint: CHEST PAIN Nursing Triage Summary: pt arrives via EMS reports while shoppin at [employer] started with L side cp radiates to L arm. denies increased sob . reports nausea no vomittig History of Present Illness The patient is a 41 year old white male with a past medical history of DVT, diabetes, depression, hypertension who presents to the ED with a cc of persistent left chest pain beginning 1030 this morning. He describes the pain as vice like. He presents to the ED by EMS. He received nitro and aspirin in route to no relief. Positive tingling in feet, SOB, feeling hot, left shoulder pain. Negative nausea, vomiting, diaphoresis. He does smoke. He has been on Xarelto for 2 weeks for DVT. His father had a fatal AK at age 55. Source of History: patient Onset: 1030 this morning Position: chest (left) Quality: other (vice like) Timing: other (persistent) Associated Symptoms: + SOB, + numbness, No diaphoresis, No nausea, No vomiting Note: Pt reports feeling hot, left shoulder pain. Review of Systems See HPI for pertinent positives and negatives. A total of ten systems were reviewed and were otherwise negative. Past Medical & Surgical Medical Problems: (1) Depression (2) Depression (3) Diabetes mellitus with neurological manifestation (4) DM type 2 (diabetes mellitus, type 2) (5) DVT, lower extremity, proximal, acute (6) Foot abscess (7) Gastroparesis (8) HTN (hypertension) (9) IBS (irritable bowel syndrome) (10) Intellectual disability (11) Intellectual disability (12) Lumbago (13) Mental retardation (14) Nicotine abuse (15) Nicotine dependence (16) NSVT (nonsustained ventricular tachycardia) (17) Obesity (18) Obstructive sleep apnea (19) Recurrent chest pain (20) Sepsis (21) Stroke-like symptoms Surgical Problems: (1) S/P left knee arthroscopy (2) S/P tonsillectomy Social History Problems: (1) Alcohol abuse Family History Cancer Diabetes mellitus MOTHER GRANDMOTHER UNCLE AUNT Gallbladder disease Heart disease Hypertension MOTHER FATHER Lung disease Social History Smoking Status: Current Every Day Smoker Alcohol Use: heavy Drug Use: none Marital Status: Housing Status: lives with family Occupation Status: employed, other Current/Historical Medications Scheduled Aripiprazole (Aripiprazole), 10 MG PO HS Aspirin (Aspirin Ec), 81 MG PO DAILY Atorvastatin (Lipitor), 10 MG PO DAILY Doxycycline Hyclate (Doxycycline Hyclate), 100 MG PO BID Duloxetine HCl (Duloxetine HCl), 60 MG PO DAILY Gabapentin (Gabapentin), 400 MG PO TID Gabapentin (Gabapentin), 600 MG PO TID Insulin Aspart (Novolog Flexpen), 28 UNITS SQ AC Insulin Glargine (Lantus Solostar), 50 UNITS SQ BID Lisinopril (Lisinopril), 10 MG PO DAILY Pantoprazole (Protonix), 40 MG PO DAILY Rivaroxaban (Xarelto Starter Pack 15 & 20 mg), 15 MG PO UD Scheduled PRN Nicotine Polacrilex (Nicorelief), 1 PIECE PO UD PRN for Nicotine Craving Polyethylene Glycol 3350 (Miralax), 17 GM PO DAILY PRN for Constipation Tramadol (Ultram), 25 MG PO Q8H PRN for Pain Allergies Coded Allergies: Cephalosporins (Verified Allergy, Unknown, CECLOR- RXN UNKNOWN. A CHILD. WILLING TO TRY CEPHS AGAIN, 10/27/17) NSAIDs (Verified Adverse Reaction, Unknown, gastroparesis, kidney problems , 10/27/17) Physical Exam Vital Signs Date Time Temp Pulse Resp B/P (MAP) Pulse Ox O2 Delivery O2 Flow Rate FiO2 10/27/17 15:36 115 20 157/79 95 Room Air 10/27/17 13:31 112 18 153/83 95 Room Air 10/27/17 12:08 119 18 189/82 98 Room Air 10/27/17 12:08 122 10/27/17 11:34 37.0 120 20 167/90 98 Room Air Physical Exam GENERAL: Obese, NC in place. Awake, alert, well-appearing, NAD HENT: Normocephalic, atraumatic. EYES: Normal conjunctiva. Sclera non-icteric. NECK: Supple. No nuchal rigidity. FROM. RESPIRATORY: CTAB, no rhonchi, wheezing, crackles CARDIAC: Tachycardic and regular, no MRG ABDOMEN: Soft, NTND, BS+ MSK: No chest wall TTP. Bilateral calf pain without asymmetry or swelling. Surgical scars to the left dorsal aspect of the foot. NEURO: GCS 15, CN 2-12 intact, moves all 4s on command SKIN: No rash or jaundice noted. Medical Decision & Procedures ER Provider Diagnostic Interpretation: Radiology results as stated below per my review and radiologist interpretation: SINGLE VIEW CHEST CLINICAL HISTORY: Atypical chest pain. FINDINGS: 2 AP, portable, upright chest radiographs are compared to study dated 10/22/2017 and correlated with chest CT dated 10/16/2017. The examination is degraded by portable technique, large body habitus, and patient rotation. The cardiomediastinal silhouette is unremarkable. The lungs and pleural spaces are clear. No pneumothorax is seen. The bony thorax is grossly intact. IMPRESSION: No acute cardiopulmonary abnormality and no significant change from recent CT angiogram of the chest. Electronically signed by: Jaydon Wallace M.D. 10/27/2017 1:12 PM Dictated Date/Time: 10/27/2017 1:[address] ANGIOGRAM OF THE CHEST CLINICAL HISTORY: Atypical chest pain COMPARISON STUDY: 10/16/2017 TECHNIQUE: Following the IV administration of 103 mL of Optiray-320, CT angiogram of the thorax was performed from the thoracic inlet to the lung bases utilizing the pulmonary embolus protocol. Images are reviewed in the axial, sagittal, and coronal planes. IV contrast was administered without complication. MIP imaging was performed. A dose lowering technique was utilized adhering to the principles of ALARA. CT DOSE: 726.22 mGy.cm FINDINGS: No pathologically enlarged axillary mediastinal or hilar lymph nodes were visualized. There was no evidence of thoracic aortic dilatation. The study is mildly compromised secondary to patient motion artifact. No central emboli are visualized. Evaluation of peripheral pulmonary artery branches is limited. If there is a strong clinical concern over the presence of pulmonary embolism, correlation with serial leg ultrasonography should be considered. No pleural effusions are visualized. There was no evidence of focal pulmonary consolidation. IMPRESSION: 1. Subtle limited study secondary to motion artifact 2. No central emboli are visualized 3. No evidence of focal pulmonary consolidation Electronically signed by: Ortiz Driscoll M.D. 10/27/2017 2:33 PM Dictated Date/Time: 10/27/2017 2:29 PM Laboratory Results 10/27/17 11:40 Red Blood Count 4.86, Mean Corpuscular Volume 85.0, Mean Corpuscular Hemoglobin 28.8, Mean Corpuscular Hemoglobin Concent 33.9, Mean Platelet Volume 9.1, Neutrophils (%) (Auto) 71.9, Lymphocytes (%) (Auto) 18.3, Monocytes (%) (Auto) 6.8, Eosinophils (%) (Auto) 2.0, Basophils (%) (Auto) 0.6, Neutrophils # (Auto) 6.48, Lymphocytes # (Auto) 1.65, Monocytes # (Auto) 0.61, Eosinophils # (Auto) 0.18, Basophils # (Auto) 0.05 10/27/17 11:40 Test 10/27/17 11:40 10/27/17 15:50 10/27/17 15:51 10/27/17 17:14 White Blood Count 9.01 K/uL (4.8-10.8) Red Blood Count 4.86 M/uL (4.7-6.1) Hemoglobin 14.0 g/dL (14.0-18.0) Hematocrit 41.3 % (42-52) Mean Corpuscular Volume 85.0 fL (80-100) Mean Corpuscular Hemoglobin 28.8 pg (25-34) Mean Corpuscular Hemoglobin Concent 33.9 g/dl (32-36) Platelet Count 287 K/uL (130-400) Mean Platelet Volume 9.1 fL (7.4-10.4) Neutrophils (%) (Auto) 71.9 % Lymphocytes (%) (Auto) 18.3 % Monocytes (%) (Auto) 6.8 % Eosinophils (%) (Auto) 2.0 % Basophils (%) (Auto) 0.6 % Neutrophils # (Auto) 6.48 K/uL (1.4-6.5) Lymphocytes # (Auto) 1.65 K/uL (1.2-3.4) Monocytes # (Auto) 0.61 K/uL (0.11-0.59) Eosinophils # (Auto) 0.18 K/uL (0-0.5) Basophils # (Auto) 0.05 K/uL (0-0.2) RDW Standard Deviation 41.8 fL (36.4-46.3) RDW Coefficient of Variation 13.4 % (11.5-14.5) Immature Granulocyte % (Auto) 0.4 % Immature Granulocyte # (Auto) 0.04 K/uL (0.00-0.02) Prothrombin Time 10.6 SECONDS (9.0-12.0) Prothromb Time International Ratio 1.0 (0.9-1.1) Activated Partial Thromboplast Time 27.9 SECONDS (21.0-31.0) Partial Thromboplastin Ratio 1.1 Anion Gap 7.0 mmol/L (3-11) Est Creatinine Clear Calc Drug Dose 180.8 ml/min Estimated GFR () 128.1 Estimated GFR (Non- 110.6 BUN/Creatinine Ratio 22.6 (10-20) Calcium Level 9.0 mg/dl (8.5-10.1) Total Bilirubin 0.4 mg/dl (0.2-1) Direct Bilirubin < 0.1 mg/dl (0-0.2) Aspartate Amino Transf (AST/SGOT) 20 U/L (15-37) Alanine Aminotransferase (ALT/SGPT) 39 U/L (12-78) Alkaline Phosphatase 63 U/L (45-117) Pro-B-Type Natriuretic Peptide 28 pg/ml (0-450) Total Protein 7.7 gm/dl (6.4-8.2) Albumin 3.6 gm/dl (3.4-5.0) Lipase 197 U/L (73-393) Urine Color YELLOW Urine Appearance CLEAR (CLEAR) Urine pH 5.0 (4.5-7.5) Urine Specific [place] > 1.045 (1.000-1.030) Urine Protein NEG (NEG) Urine Glucose (UA) NEG (NEG) Urine Ketones NEG (NEG) Urine Occult Blood NEG (NEG) Urine Nitrite NEG (NEG) Urine Bilirubin NEG (NEG) Urine Urobilinogen NEG (NEG) Urine Leukocyte Esterase NEG (NEG) Urine WBC (Auto) 1-5 /hpf (0-5) Urine RBC (Auto) 0-4 /hpf (0-4) Urine Hyaline Casts (Auto) 0 /lpf (0-5) Urine Epithelial Cells (Auto) 10-20 /lpf (0-5) Urine Bacteria (Auto) NEG (NEG) Urine Opiates Screen POS (NEG) Urine Methadone, Qualitative NEG (NEG) Urine Barbiturates NEG (NEG) Urine Phencyclidine (PCP) Level NEG (NEG) Ur Amphetamine/Methamphetamine NEG (NEG) MDMA (Ecstasy) Screen NEG (NEG) Urine Benzodiazepines Screen NEG (NEG) Urine Cocaine Metabolite NEG (NEG) Urine Marijuana (THC) NEG (NEG) Troponin I < 0.015 ng/ml (0-0.045) Ethyl Alcohol mg/dL < 3.0 mg/dl (0-3) Thyroid Stimulating Hormone (TSH) 0.767 uIu/ml (0.300-4.500) Salicylates Level < 1.7 mg/dl (2.8-20) Acetaminophen Level < 2 ug/ml (10-30) Laboratory results reviewed by me Medications Administered Medications (Trade) Dose Ordered Sig/Mario Alberto Route Start Time Stop Time Status Last Admin Dose Admin Ondansetron HCl (Zofran Inj) 4 mg NOW STAT IV 10/27/17 12:24 10/27/17 12:25 DC 10/27/17 12:54 4 MG Acetaminophen (Tylenol Tab) 1,000 mg NOW STAT PO 10/27/17 12:24 10/27/17 12:25 DC 10/27/17 12:54 1,000 MG Morphine Sulfate (MoRPHine SULFATE INJ) 10 mg NOW STAT IV 10/27/17 13:40 10/27/17 13:42 DC 10/27/17 13:59 10 MG Acetaminophen/ Hydrocodone Bitart ([place] 5/325 Tab) 1 tab ONE STAT PO 10/27/17 13:40 10/27/17 13:42 DC 10/27/17 13:59 1 TAB Sodium Chloride 1,000 ml @ 999 mls/hr Q1H1M STAT IV 10/27/17 14:45 10/27/17 15:45 DC 10/27/17 15:05 999 MLS/HR Sodium Chloride 1,000 ml @ 999 mls/hr Q1H1M STAT IV 10/27/17 15:34 10/27/17 16:34 DC 10/27/17 16:01 999 MLS/HR Thiamine HCl (Vitamin B-1 Tab) 100 mg ONE STAT PO 10/27/17 15:44 10/27/17 15:47 DC 10/27/17 16:06 100 MG Folic Acid (Folvite Tab) 1 mg ONE STAT PO 10/27/17 15:44 10/27/17 15:47 DC 10/27/17 16:06 1 MG Lorazepam (Ativan Tab) 1 mg NOW STAT PO 10/27/17 15:44 10/27/17 15:47 DC 10/27/17 15:59 1 MG ECG Indication: chest pain Rate (beats per minute): 119 Rhythm: sinus tachycardia Findings: other (normal intervals, normal axis, no STS changes or TWI) ED Course 1217: The patient was evaluated in room C6. A complete history and physical exam was performed. 1336: I reevaluated the patient. He is still having chest pain. 1531: I reevaluated the patient. 1628: I reevaluated the patient. He is now suicidal. Psych disease case manager will evaluate. 1736: Patient has been referred to [address] [place] [id number]. 1846: The patient has been accepted to [address] [place] [id number]. Medical Decision The patient is a 41 year old white male with a past medical history of DVT, diabetes, depression, hypertension, hyperlipidemia who presents to the ED with a cc of persistent left chest pain beginning 1030 this morning. Differential diagnosis: Etiologies such as cardiac ischemia, aortic dissection, pulmonary embolism, pneumonia, pneumothorax, musculoskeletal, infections, pericarditis, myocarditis , esophageal rupture, gastrointestinal, as well as others were entertained. Patient was seen and evaluated the bedside. Patient does have a history of hypertension, hyperlipidemia, diabetes history of osteo-and did have her recent diagnosis left lower extremity DVT for which she is on Xarelto. Patient did complain of left-sided chest pain that did radiate to the left side of his chest. Patient describes as viselike in nature. Patient did have an echo that was completed on October 19 which showed some tachycardia but no wall motion abnormality and a fairly normal EF with good squeeze. Patient was taking on exam. Patient did have blood work, EKG, troponin, CT PE of the chest. Patient' s EKG did show sinus tachycardia but without any ischemic changes. Patient's chest x-ray was clear. Patient's CT PE negative acute although slightly degraded secondary to motion artifact. Patient did have some persistent tachycardia however when looking at him in the room the patient appeared very comfortable. Patient was given additional pain medications and fluids. There was a concern that perhaps maybe he was having some withdrawal-type symptoms. Patient denied any alcohol use. Patient did have folic acid, MVI, Ativan given. A UDS and tox screen were also checked. Patient reportedly was suicidal. Patient denied any plan. Psych disease case manager did evaluate the patient. Psych management management did recommend voluntary inpatient treatment. Patient was positive for opiates but this is likely secondary to the meds he received today. Patient was cleared medically as the patient had a negative PE study as well as 2 negative troponins with a nonischemic EKG. Patient was admitted to 3 S. Medication Reconcilliation Current Medication List: was personally reviewed by me Blood Pressure Screening Patient's blood pressure: Elevated blood pressure Blood pressure disposition: Referred to PCP Impression Primary Impression: Chest pain Additional Impressions: Suicidal ideation MDD (major depressive disorder) Scribe Attestation The scribe's documentation has been prepared under my direction and personally reviewed by me in its entirety. I confirm that the note above accurately reflects all work, treatment, procedures, and medical decision making performed by me. Departure Information Dispostion [facility] Acute Care Referrals Velasquez Valencia M.D. (PCP) Patient Instructions [facility] Problem Qualifiers Primary Impression: Chest pain Chest pain type: unspecified Qualified Codes: R07.9 - Chest pain, unspecified Additional Impressions: MDD (major depressive disorder) Major depression recurrence: recurrent Active/Remission status: currently active Major depression episode severity: moderate Qualified Codes: F33.1 - Major depressive disorder, recurrent, moderate
[2017-10-27 13:00] LABS: ALKALINE PHOSPHATASE 63 U/L (45-117); TOTAL PROTEIN 7.7 gm/dl (6.4-8.2)
--- NOTE | 2017-10-27 13:14 | DIAGNOSTIC IMAGING REPORT ---
SINGLE VIEW CHEST CLINICAL HISTORY: Atypical chest pain. FINDINGS: 2 AP, portable, upright chest radiographs are compared to study dated 10/22/2017 and correlated with chest CT dated 10/16/2017. The examination is degraded by portable technique, large body habitus, and patient rotation. The cardiomediastinal silhouette is unremarkable. The lungs and pleural spaces are clear. No pneumothorax is seen. The bony thorax is grossly intact. IMPRESSION: No acute cardiopulmonary abnormality and no significant change from recent CT angiogram of the chest. Electronically signed by: Jaydon Wallace M.D. 10/27/2017 1:12 PM Dictated Date/Time: 10/27/2017 1:11 PM
[2017-10-27] MEDS ORDERED: HYDROCODONE/ACETAMOPHEN 5/325MG TAB PO STA (13:40)
[2017-10-27] MEDS ORDERED: MoRPHine SULFATE 10 MG/ML CARP/VIAL IV STA (13:40)
--- NOTE | 2017-10-27 14:35 | DIAGNOSTIC IMAGING REPORT ---
CT ANGIOGRAM OF THE CHEST CLINICAL HISTORY: Atypical chest pain COMPARISON STUDY: 10/16/2017 TECHNIQUE: Following the IV administration of 103 mL of Optiray-320, CT angiogram of the thorax was performed from the thoracic inlet to the lung bases utilizing the pulmonary embolus protocol. Images are reviewed in the axial, sagittal, and coronal planes. IV contrast was administered without complication. MIP imaging was performed. A dose lowering technique was utilized adhering to the principles of ALARA. CT DOSE: 726.22 mGy.cm FINDINGS: No pathologically enlarged axillary mediastinal or hilar lymph nodes were visualized. There was no evidence of thoracic aortic dilatation. The study is mildly compromised secondary to patient motion artifact. No central emboli are visualized. Evaluation of peripheral pulmonary artery branches is limited. If there is a strong clinical concern over the presence of pulmonary embolism, correlation with serial leg ultrasonography should be considered. No pleural effusions are visualized. There was no evidence of focal pulmonary consolidation. IMPRESSION: 1. Subtle limited study secondary to motion artifact 2. No central emboli are visualized 3. No evidence of focal pulmonary consolidation Electronically signed by: Ortiz Driscoll M.D. 10/27/2017 2:33 PM Dictated Date/Time: 10/27/2017 2:29 PM
[2017-10-27] MEDS ORDERED: SODIUM CHLORIDE 0.9% 1000ML 1,000 ML IV STA ×2 (14:45→15:34)
[2017-10-27] MEDS ORDERED: LORAZEPAM 1 MG TAB PO STA (15:44)
[2017-10-27] MEDS ORDERED: THIAMINE HCL 100 MG TAB PO STA (15:44)
[2017-10-27] MEDS ORDERED: ONDANSETRON INJ 2 MG/ML 2 ML VIAL IV PRN (18:30)
[2017-10-27] MEDS ORDERED: NITROGLYCERIN 0.3 MG/1 TAB 100 TAB BTL SL PRN (18:45)
[2017-10-27] MEDS ORDERED: RIVAROXABAN PO SCH (18:45)
[2017-10-27] MEDS ORDERED: NICOTINE POLACRILEX 2 MG GUM MT PRN (18:45)
[2017-10-27] MEDS ORDERED: TRAMADOL HCL 50 MG TAB PO PRN ×2 (18:45→21:30)
[2017-10-27] MEDS ORDERED: NON-FORMULARY MEDICATION (Polyethylene Glycol 3350 (Miralax) 17 GM) PO PRN (18:45)
--- NOTE | 2017-10-27 19:01 | HISTORY & PHYSICAL EXAMINATION ---
DATE OF ADMISSION: 10/27/2017 PRIMARY CARE PHYSICIAN: Dr. Valencia. CHIEF COMPLAINT: Chest pain since around 10:30 a.m. HISTORY OF PRESENT COMPLAINT: He is a 41-year-old male with significant past medical history of diabetes with polyneuropathy, major depressive disorder, history of DVT, gastroparesis, hyperlipidemia, tobacco use disorder and hypertension, apparently has been complaining of chest pain since around 10:30 this morning. He was at [employer] as he was sitting on a cart and all of a sudden he got the chest pain in the precordial area with shortness of breath and sweating. He did have some nausea. As per him, the pain has been continuing. He denies to having dizziness associated with it and he does not have any fever or chills with it and he denies to having problem with urine and/or bowel habit. Apparently, he has been to the hospital frequently with chest pain, last time he was here October 17 with cellulitis of the left foot, but he complained chest pain. Before that October 09, he had chest pain and he was seen by the special officer automat and it has been atypical type of chest pain all the time and has been negative for any ACS and his echo was unremarkable, but given the ongoing chest pain, he was admitted to telemetry unit for continuation of care. PAST MEDICAL HISTORY: Significant for diabetes with polyneuropathy, gastroparesis, major depression illness, hypertension, hyperlipidemia, left leg DVT on Coumadin, irritable bowel syndrome, and tobacco use disorder. PAST SURGICAL HISTORY: Significant for tonsillectomy as a child and on the left side. FAMILY HISTORY: Mother does have hyperlipidemia and father does have COPD. SOCIAL HISTORY: He is . He does not have any child. He lives with his mom. He smokes about 1 pack of cigarettes per day, and he drinks occasionally and he has been reasonably ambulant. ALLERGIES: CEPHALOSPORINS AND NSAIDS. MEDICATIONS: As an outpatient, he has been on Abilify 10 mg at night, aspirin 81 mg daily, Lipitor 10 mg daily, Cymbalta 60 mg daily, gabapentin 400 mg t.i.d., insulin aspart 20 units subQ before meals, Lantus 50 units subQ twice daily, lisinopril 40 mg daily, nicotine patch as directed, Protonix 40 mg daily, Ultram 25 mg q. 8 hourly p.r.n. and Xarelto 15 mg daily, also MiraLax 17 grams daily and he has finished a course of doxycycline. REVIEW OF SYSTEMS: All other systems Unremarkable except those mentioned in history of present complaint. PHYSICAL EXAMINATION: GENERAL: On examination in the Emergency Room, he was still having some chest pain, otherwise is no acute distress. VITAL SIGNS: Temperature 37.0, pulse 115, blood pressure 157/79, saturation 95% on room air. HEENT: Unremarkable. NECK: Supple. No JVD, no bruit. CHEST: Clear to auscultation bilaterally. Some tenderness in the costochondral area on the left side. HEART: S1, S2 regular. ABDOMEN: Soft, benign, nontender, no organomegaly. Bowel sounds present. EXTREMITIES: Trace edema bilaterally. He does have minimal redness involving the foot and he is status post cellulitis and abscess on that foot as well. CENTRAL NERVOUS SYSTEM: He is alert, awake, oriented x3. He does have some issues with speech, but he is not aware. He does not have any focal neurological deficit. LABORATORY DATA: Noted today - white count was 9.01, H&H 14.0/41.3, platelet was 287. Sodium 137, potassium 4.4, chloride 106, carbon dioxide 24, BUN 18, creatinine 0.78, and random glucose 165. LFTs normal. Troponin less than 0.015 and TSH pending. Lipase is normal. Coagulation profile normal. Toxicology - opiate positive, salicylate less than 1.7, Tylenol less than 2, and alcohol less than 3. UA examination unremarkable. IMAGING DATA: Chest x-ray reported as no acute cardiopulmonary abnormality and no significant change from recent CT angiogram of the chest and CT of the chest did not show any pulmonary embolism, no central emboli visualized, no evidence of focal pulmonary consolidation and subtle limited study due to motion artifact. EKG was in sinus rhythm, rate of 119 per minute, normal axis and no significant change compared with prior EKG. He had an echocardiogram done that was in 10/17/2017 and that was reported as a clear limited study, sinus tachycardia 105, concentric LVH, no wall motion abnormality, left ventricular hyperdynamic, EF was 65-70%, right ventricle mildly dilated, right ventricular systolic function normal findings do not suggest pulmonary hypertension and there is no pericardial effusion. IMPRESSION AND PLAN: 1. Chest pain, seems to be atypical. Will be admitted to telemetry unit. Initial cardiac enzymes and EKG negative. We will do serial cardiac enzymes. Plan to do a stress echocardiogram tomorrow morning. 2. Diabetes type 2 with polyneuropathy and gastroparesis. I will continue his Lantus and put him on sliding scale coverage while in the hospital. 3. Major depressive disorder. He has been taking antipsychotic medications for that and will continue with that. He does not have any acute symptoms at this time that requires any psychiatric evaluation. 4. History of deep venous thrombosis, on Xarelto. Will continue with that. 5. Hypertension. Blood pressure seems to be stable. Continue with current medications. 6. Hyperlipidemia. Continue with statin. 7. Gastrointestinal prophylaxis with Protonix. 8. Code status. He will be a full code. In my clinical judgment, the beneficiary meets criteria as per CMS for 2-midnight stay in the hospital. 2nd set of Tro-negative and no ACS suspected He was admitted to Mental Health unit for ongoing care of his Psychiatric problems. Dr Jorge RODRIGUEZ
[2017-10-27] MEDS ORDERED: IV FLUIDS COMPLETED PRN (19:30)
[2017-10-27] MEDS ORDERED: INSULIN GLARGINE SOLOSTAR 100 UNITS/ML 3 ML PEN SQ SCH (21:00)
[2017-10-27] MEDS ORDERED: GABAPENTIN 400 MG CAP PO SCH (21:00)
[2017-10-27] MEDS ORDERED: ARIPIprazole TAB 10 MG TAB PO SCH (21:00)
[2017-10-27] MEDS ORDERED: GABAPENTIN 600 MG TAB PO SCH (21:00)
[2017-10-27] MEDS ORDERED: NURSING VERBAL MED ORDER ONE (21:15)
[2017-10-27] MEDS ORDERED: ACETAMINOPHEN 325 MG TAB PO PRN (21:30)
[2017-10-27] MEDS ORDERED: ALUMINUM/MAGNESIUM SUSP 30 ML UDC PO PRN (21:30)
[2017-10-27] MEDS ORDERED: hydrOXYzine HCL 25 MG TAB PO PRN ×2 (21:30)
[2017-10-27] MEDS ORDERED: SODIUM CHLORIDE 0.65% NA SOLN 45 ML (OCEAN) PRN (21:30)
[2017-10-27] MEDS ORDERED: MAGNESIUM HYDROXIDE SUSP 30 ML UDC PO PRN (21:30)
[2017-10-27] MEDS ORDERED: BISMUTH SUBSALICYLATE PER ML OMNICELL CHARGE PO PRN (21:30)
[2017-10-27] MEDS ORDERED: PHARMACY GLYCEMIC MGMT CONSULT PRN (21:30)
[2017-10-27 21:37] VITALS: O2SAT 98
[2017-10-27 22:00] VITALS: BP 130/80; PULSE 101; TEMP 36.6; Ht 190.5 cm; Wt 134.8 kg
[2017-10-27] MEDS ORDERED: GLUCOSE 10 TABS/TUBE PO PRN (22:00)
[2017-10-27] MEDS ORDERED: GLUCAGON FOR INJ 1 MG VIAL SQ PRN (22:00)
[2017-10-27] MEDS ORDERED: DEXTROSE 50% 50 ML SYR IV PRN (22:00)
[2017-10-27] MEDS ORDERED: GLUCOSE 40% GEL 15 GM TUBE PO PRN (22:00)
[2017-10-27] MEDS: INSULIN ASPART 100 UNITS/ML 3 ML PEN SC SCH (22:15)
[2017-10-27] MEDS: ARIPIprazole TAB 10 MG TAB PO SCH (22:55)
[2017-10-27] MEDS: GABAPENTIN 400 MG CAP PO SCH (22:55)
[2017-10-27] MEDS: DOXYCYCLINE HYCLATE 100 MG CAP PO SCH (22:56)
[2017-10-27] MEDS: GABAPENTIN 600 MG TAB PO SCH (22:56)
[2017-10-27] MEDS: INSULIN GLARGINE SOLOSTAR 100 UNITS/ML 3 ML PEN SC SCH (22:57)
[2017-10-28 06:41] VITALS: BP_SYST 128; BP_SYST 153; BP_DIAS 83; BP_DIAS 93; PULSE 97; TEMP 36.5
--- NOTE | 2017-10-28 08:14 | Pharmacy Progress Note ---
Glycemic Control Intl Consult Date of Service Oct 28, 2017. Scope Glycemic Pharmacist consulted on 10/27/17 for glycemic control and to write orders per [facility] inpatient glycemic control protocol Objective Weight (Kilograms): 134.800 Accuchecks BSG (last 24hrs): Test 10/27/17 11:40 10/27/17 20:42 Random Glucose 165 mg/dl (70-99) Bedside Glucose 119 mg/dl (70-99) Laboratory Data (last 24hrs) Test 10/27/17 11:40 Anion Gap 7.0 mmol/L BUN/Creatinine Ratio 22.6 Blood Urea Nitrogen 18 mg/dl Creatinine 0.78 mg/dl Potassium Level 4.4 mmol/L Sodium Level 137 mmol/L White Blood Count 9.01 K/uL Red Blood Count 4.86 M/uL Hemoglobin 14.0 g/dL Hematocrit 41.3 % Mean Corpuscular Volume 85.0 fL Mean Corpuscular Hemoglobin 28.8 pg Mean Corpuscular Hemoglobin Concent 33.9 g/dl Platelet Count 287 K/uL Mean Platelet Volume 9.1 fL Neutrophils (%) (Auto) 71.9 % Lymphocytes (%) (Auto) 18.3 % Monocytes (%) (Auto) 6.8 % Eosinophils (%) (Auto) 2.0 % Basophils (%) (Auto) 0.6 % Neutrophils # (Auto) 6.48 K/uL Lymphocytes # (Auto) 1.65 K/uL Monocytes # (Auto) 0.61 K/uL Eosinophils # (Auto) 0.18 K/uL Basophils # (Auto) 0.05 K/uL HbA1c Item Value Date Time Hemoglobin A1c 9.2 % H 07/27/173 Estimated Average Glucose 217 mg/dl 07/27/17 2223 Recent Pertinent Medications Outpatient Anti-diabetic Regimen: * Lantus 50 units BID * Novolog 28 units AC Assessment & Plan ASSESSMENT: * 41 yo M admitted overnight to MHU with chest pain * Pt well known to glycemic service from multiple prior admissions * Plan will be to continue same regimen that was stable for him nearly a week ago * Reduced basal dosing * Tight Novolog coverage PLAN FOR INPATIENT GLYCEMIC CONTROL: * Basal insulin with LANTUS 30-40 units SQ BID * Correctional Insulin with NOVOLOG per scale ACHS or Q6hrs while NPO * Goal Range: Low 110 mg/dL - High 140 mg/dL * Correction Factor: 10 mg/dL/unit * Nutritional / Prandial insulin per carb ratio of 1 unit per 4 grams CHO consumed * Please note that the plan above was derived based on current level of insulin resistance and hospital stress. These recommendations are appropriate for inpatient admission only. Plan of care upon discharge will need to be reassessed to avoid potential outpatient hypo/hyperglycemia. Thank you.
[2017-10-28] MEDS: ASPIRIN 81 MG ECTAB PO SCH (08:54)
[2017-10-28] MEDS: GABAPENTIN 600 MG TAB PO SCH ×3 (08:54→20:58)
[2017-10-28] MEDS: ATORVASTATIN 10 MG TAB PO SCH (08:54)
[2017-10-28] MEDS: DULOXETINE HCL 60 MG CAP PO SCH (08:54)
[2017-10-28] MEDS: PANTOprazole SOD 40 MG TAB PO SCH (08:55)
[2017-10-28] MEDS: LISINOPRIL 10 MG TAB PO SCH (08:55)
[2017-10-28] MEDS: DOXYCYCLINE HYCLATE 100 MG CAP PO SCH ×2 (08:55→20:58)
[2017-10-28] MEDS: NICOTINE POLACRILEX 2 MG GUM MT PRN ×2 (08:56→14:46)
[2017-10-28] MEDS: POLYETHYLENE (MIRALAX) 17 GM PACK PO SCH (08:57)
[2017-10-28] MEDS: NICOTINE 21 MG/24 HR TDSY EXT SCH (08:57)
[2017-10-28] MEDS ORDERED: ASPIRIN 81 MG ECTAB PO SCH (09:00)
[2017-10-28] MEDS ORDERED: ATORVASTATIN 10 MG TAB PO SCH (09:00)
[2017-10-28] MEDS ORDERED: LISINOPRIL 10 MG TAB PO SCH (09:00)
[2017-10-28] MEDS ORDERED: DULOXETINE HCL 60 MG CAP PO SCH (09:00)
[2017-10-28] MEDS ORDERED: PANTOprazole SOD 40 MG TAB PO SCH (09:00)
[2017-10-28] MEDS: INSULIN GLARGINE SOLOSTAR 100 UNITS/ML 3 ML PEN SC SCH ×2 (09:03→21:01)
[2017-10-28] MEDS: INSULIN ASPART 100 UNITS/ML 3 ML PEN SC SCH ×4 (09:04→20:37)
[2017-10-28] MEDS ORDERED: PHARMACY GLYCEMIC MGMT CONSULT PRN (09:47)
--- NOTE | 2017-10-28 09:53 | Psychiatric History & Physical ---
History Date of Service Oct 28, 2017. Identifying Data Bry Akhtar is a 41-year-old male who lives in [place], has a history of depression, [employer] disability, DVT, diabetes, and hypertension, and was admitted voluntarily on Oct 27, 2017 at 21:01 after he presented to the emergency room via EMS for chest pain. In the emergency room, he endorsed suicidal ideation with a plan to overdose on his prescription medications. Chief Complaint "Okay". History of Present Illness The patient is well-known to us from multiple previous psychiatric and medical admissions, most recently on our unit for 2 separate admissions in June 2017. At that time, he voiced suicidal thoughts after he was informed he was not accepted to [facility]. His aripiprazole was decreased to 10 mg daily as he reported muscle twitching, and he was cross tapered from venlafaxine XR to duloxetine. He was discharged to follow-up with his therapist and psychiatrist at [facility] [place], but has since switched his care to [facility]. In the interim, he has had numerous ER visits and for medical admissions for left sided numbness, left foot cellulitis, and chest pain. He frequently presents to the emergency room, and has had 21 visits in the past 6 months. He is now on duloxetine 60 mg daily and aripiprazole 10 mg daily at bedtime. Yesterday, he presented to the emergency room via EMS with a chief complaint of chest pain, that occurred while he was at the grocery store. He had received nitroglycerin and aspirin in route to the hospital with no relief. He reported left-sided chest pain radiating to his left shoulder and arm, tingling in feet, shortness of breath, and felt hot. He had recently been started on Xarelto for DVT. On exam, he was tachycardic to 122 bpm but in no acute distress and blood pressure was elevated. Chest x-ray showed no acute abnormalities and chest/thorax CTA was negative. EKG showed sinus tachycardia but no ischemic changes. He had an echo on October 19 which showed some tachycardia but no wall motion abnormality and a fairly normal EF. Troponins 2 were negative. His drug screen was positive for opiates. He is not prescribed opiates as an outpatient and denies illicit substance abuse, but was given morphine 10mg and Seaman 5/325mg in the ER at 13:59, and UDS was not obtained until 15:50. Today, the patient was seen with Adarsh Leggett, MS 3 with his permission. He reports that his mood has actually been fairly well-controlled since he was discharged from our unit in June. He transferred his care to Lisandra Quispe at [facility], but admits he has not seen her in some time due to his multiple medical admissions. 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 He states he is now on medical leave again due to ongoing multiple medical problems. He states that he became acutely overwhelmed and suicidal yesterday in the emergency room when he was told he was not being admitted to the medical floor, as he was frustrated that the doctors couldn't tell him what was causing his chest pain. He is able to review basic information about his recent medical treatment, and we again reviewed the testing that was performed yesterday and potential causes of chest pain that were ruled out. We also discussed atypical chest pain, and the things that he can do to try to decrease these symptoms in the future, such as smoking cessation, weight loss, healthy diet, good medication compliance, and following his various doctors recommendations. He has been able to cut back his smoking from 2PPD to 1 pack per day. He denies significant anxiety recently, and denies suicidal thoughts other than yesterday. He denies that he had a plan, and feels safe here in the hospital. He denies symptoms of zeb and psychosis. He feels his current medications are helping, and does not wish to change them. Outpatient records from [facility] reviewed: Progress note from medication management visit on 07/30/2017 was sent, but no other records. He reported mood had been good, and he had just been discharged from the hospital after a medical admission for left-sided numbness and weakness. He denied problems with anxiety but reported ongoing sleep difficulties, and admitted he did not use his CPAP machine as it was uncomfortable. Diagnosis is recurrent depression. He was continued on duloxetine 60 mg and aripiprazole 10 mg, and was told to follow-up in 8 weeks. Past Psychiatric History Current OP Treatment: psychiatrist (BELTRAN Bernal at [facility]), therapist (Papi Marion at [facility] [place]), human services case manager (Dave Cassidy at the base service unit), club house Prior OP Treatment: psychiatrist (Dr. Aceves at [facility] [place], Dr. Caballero years ago) Prior Psych Hospitalizations: [facility] (many-1997, 2001, 2002 , and 2 admissions in June 2017), other Access to a Gun: No Suicide Attempts: No (reports he had a bottle of pills in his hand in March 2017 and was thinking of overdosing on them, but did not take any.) Past Medication Trials Included but not limited to: Venlafaxine XR - cross tapered to duloxetine in June 2017 to try to better control chronic pain Mirtazapine [place] - toxicity Quetiapine Depakote - started during 1997 U admission for IED Bupropion SR - started during 2001 hospitalization for depression Trazodone - started during 2001 admission for sleep Additional Notes Previous diagnoses include intellectual disability (mild MR per 1997 records, and 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 Olivares Allergies Allergies: Coded Allergies: Cephalosporins (Verified Allergy, Unknown, CECLOR- RXN UNKNOWN. A CHILD. WILLING TO TRY [facility] AGAIN, 10/27/17) NSAIDs (Verified Adverse Reaction, Unknown, gastroparesis, kidney problems , 10/27/17) Home Medications Scheduled Aripiprazole (Aripiprazole), 10 MG PO HS Aspirin (Aspirin Ec), 81 MG PO DAILY Atorvastatin (Lipitor), 10 MG PO DAILY Doxycycline Hyclate (Doxycycline Hyclate), 100 MG PO BID Duloxetine HCl (Duloxetine HCl), 60 MG PO DAILY Gabapentin (Gabapentin), 400 MG PO TID Gabapentin (Gabapentin), 600 MG PO TID Insulin Aspart (Novolog Flexpen), 28 UNITS SQ AC Insulin Glargine (Lantus Solostar), 50 UNITS SQ BID Lisinopril (Lisinopril), 10 MG PO DAILY Pantoprazole (Protonix), 40 MG PO DAILY Rivaroxaban (Xarelto Starter Pack 15 & 20 mg), 15 MG PO UD Scheduled PRN Nicotine Polacrilex (Nicorelief), 1 PIECE PO UD PRN for Nicotine Craving Polyethylene Glycol 3350 (Miralax), 17 GM PO DAILY PRN for Constipation Tramadol (Ultram), 25 MG PO Q8H PRN for Pain Family History Cancer Diabetes mellitus MOTHER GRANDMOTHER UNCLE AUNT Gallbladder disease Heart disease Hypertension MOTHER FATHER Lung disease History of Suicide: No History of Substance Abuse: Yes (paternal uncle alcoholic) Psychiatric History: Yes (Brother with unclear psychiatric problems, uncle "in a state institution," nephew with ADHD) Alcohol Use Alcohol Use In Past 12 Months: No AUDIT Total Score: 0 Smoking Use Smoking Status: Current Every Day Smoker (1 pack per day) Substance History Denies current illicit drug use, but used cannabis in his 20s, and PCP or marijuana at age 4 when an older cousin gave it to him. Personal History Lives in: [place] in [facility] with mother, sister lives next door with her family Childhood: 2 younger siblings Education: graduated from high school (was in special , has some credits from [employer]) Work History: Unemployed, has applied for disability, and is appealing after denial. 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 Relationship History: ( in June 2016 from leukemia) Children: none Spiritual Affiliation: "I believe in God and Danny" Legal History: none Psychological Trauma History: Denies Hx Traumatic Event, Other (denies abuse) Review of Systems 10 systems reviewed, negative except as stated above. He has had recent chest pain which is now resolved. Examination Physical Examination A physical exam was performed in the ER prior to admission to the unit by Dr. Red Dickey. I accept that physical as correct/medical clearance for the inpatient physical exam. Vital Signs Vital Signs Past 12 Hours Date Time Temp Pulse Resp B/P (MAP) Pulse Ox O2 Delivery O2 Flow Rate FiO2 10/28/17 06:41 36.5 97 16 153/93 97 128/83 10/27/17 22:00 36.6 101 20 130/80 10/27/17 21:37 100 20 122/70 98 Laboratory Results Last 24 Hours Test 10/27/17 11:40 10/27/17 15:50 10/27/17 15:51 10/27/17 17:14 White Blood Count 9.01 K/uL Red Blood Count 4.86 M/uL Hemoglobin 14.0 g/dL Hematocrit 41.3 % Mean Corpuscular Volume 85.0 fL Mean Corpuscular Hemoglobin 28.8 pg Mean Corpuscular Hemoglobin Concent 33.9 g/dl Platelet Count 287 K/uL Mean Platelet Volume 9.1 fL Neutrophils (%) (Auto) 71.9 % Lymphocytes (%) (Auto) 18.3 % Monocytes (%) (Auto) 6.8 % Eosinophils (%) (Auto) 2.0 % Basophils (%) (Auto) 0.6 % Neutrophils # (Auto) 6.48 K/uL Lymphocytes # (Auto) 1.65 K/uL Monocytes # (Auto) 0.61 K/uL Eosinophils # (Auto) 0.18 K/uL Basophils # (Auto) 0.05 K/uL RDW Standard Deviation 41.8 fL RDW Coefficient of Variation 13.4 % Immature Granulocyte % (Auto) 0.4 % Immature Granulocyte # (Auto) 0.04 K/uL Prothrombin Time 10.6 SECONDS Prothromb Time International Ratio 1.0 Activated Partial Thromboplast Time 27.9 SECONDS Partial Thromboplastin Ratio 1.1 Sodium Level 137 mmol/L Potassium Level 4.4 mmol/L Chloride Level 106 mmol/L Carbon Dioxide Level 24 mmol/L Anion Gap 7.0 mmol/L Blood Urea Nitrogen 18 mg/dl Creatinine 0.78 mg/dl Est Creatinine Clear Calc Drug Dose 180.8 ml/min Estimated GFR () 128.1 Estimated GFR (Non- 110.6 BUN/Creatinine Ratio 22.6 Random Glucose 165 mg/dl Calcium Level 9.0 mg/dl Total Bilirubin 0.4 mg/dl Direct Bilirubin < 0.1 mg/dl Aspartate Amino Transf (AST/SGOT) 20 U/L Alanine Aminotransferase (ALT/SGPT) 39 U/L Alkaline Phosphatase 63 U/L Troponin I < 0.015 ng/ml < 0.015 ng/ml Pro-B-Type Natriuretic Peptide 28 pg/ml Total Protein 7.7 gm/dl Albumin 3.6 gm/dl Lipase 197 U/L Urine Color YELLOW Urine Appearance CLEAR Urine pH 5.0 Urine Specific [place] > 1.045 Urine Protein NEG Urine Glucose (UA) NEG Urine Ketones NEG Urine Occult Blood NEG Urine Nitrite NEG Urine Bilirubin NEG Urine Urobilinogen NEG Urine Leukocyte Esterase NEG Urine WBC (Auto) 1-5 /hpf Urine RBC (Auto) 0-4 /hpf Urine Hyaline Casts (Auto) 0 /lpf Urine Epithelial Cells (Auto) 10-20 /lpf Urine Bacteria (Auto) NEG Urine Opiates Screen POS Urine Methadone, Qualitative NEG Urine Barbiturates NEG Urine Phencyclidine (PCP) Level NEG Ur Amphetamine/Methamphetamine NEG MDMA (Ecstasy) Screen NEG Urine Benzodiazepines Screen NEG Urine Cocaine Metabolite NEG Urine Marijuana (THC) NEG Ethyl Alcohol mg/dL < 3.0 mg/dl Thyroid Stimulating Hormone (TSH) 0.767 uIu/ml Salicylates Level < 1.7 mg/dl Acetaminophen Level < 2 ug/ml Test 10/27/17 20:42 Bedside Glucose 119 mg/dl Mental Examination During interview pt is: alert and oriented, cooperative Appearance: disheveled, other (overweight, malorodous) Affect: mood congruent Thought process: goal directed, concrete Thought content: reality based without delusions Suicidal thought are: denied Homicidal thoughts are: denied Hallucinations: denies auditory, denies visual Cognition: memory grossly intact, language grossly intact, other (attention impaired - unable to spell WORLD backwards) Intelligence estimated to be: below average (could not name 5 cities (listed states)) Insight: impaired Judgement: impaired Impression / Recommendations Impression 41-year-old male who lives in [place] with family, has a history of depression and intellectual disability as well as multiple medical problems, who has had numerous emergency room visits and inpatient admissions for his medical problems and suicidal ideation, which he often voices in the context of being informed he's been discharged from the hospital. There is a concern for malingering, as he has denied suicidal thoughts when presenting to the emergency room, until he is informed that he is not going to be admitted medically, at which point he stated he would kill himself if he had to go home. He has multiple psychosocial stressors, including the of his in June 2016, financial strain, unemployment, and trying to get disability. He requires inpatient treatment due to the risk of suicide if discharged prematurely. Inventory Assets Strengths: Willing for treatment, has extensive outpatient mental health providers. Needs: Company has a plan to decrease utilization of the emergency room, improved control of multiple medical conditions, improved coping skills and frustration tolerance Risk Factors Assessment Male: Yes : Yes /single/: Yes Higher / Fall in social status: No Access to guns: No Health problems: Yes Mental Health Diagnoses: Yes Substance use disorders: Yes (nicotine) Family history of suicide: No Previous psychiatric stay: Yes Hopelessness: No Smoker: Yes Protective Factors Assessment Shinto beliefs: No : No Responsible for young children: No Employed: No Stable relationships: No Supportive family: Yes Recommendations (1) Depression 10/28 - Continue home home dose of aripiprazole 10 mg daily at bedtime, and duloxetine 60mg daily. Monitor mood symptoms as patient reports mood was good until he became overwhelmed in the ER yesterday and felt suicidal, and consider need to increase duloxetine. - Fasting glucose on 05/14/2017 was 168, and hemoglobin A1c on 07/27/2017 was 9.2 (with an estimated average glucose of 217). Fasting lipid profile on 2016 showed elevated triglycerides 263, elevated cholesterol 207, and normal LDL and HDL. - Every 15 minute checks for safety. - Attend and participate in unit groups and therapy, work on healthy coping skills and discharge safety plan. - Encourage family meeting with mother and sister, who he says are supportive, but he is declining she does not feel this would be helpful. - Coordinate with outpatient mental health providers, including psychiatrist, therapist, and human services case manager. He also has a peer star specialist and was scheduled to attend [facility] at the time of his last discharge. He has been poorly adherent with all of the services due to frequent hospitalizations for his medical problems, and would benefit from reestablishing appointments with them. (2) Intellectual disability Per records, mild Patient has a pattern of voicing suicidal thoughts when he is frustrated and does not have his needs met immediately, and has repeatedly presented to the emergency room with medical complaints, and denied suicidal ideation until he is informed that he will be discharged. Cannot rule out malingering, but also likely influenced by his cognitive limitations. He would benefit from assistance in strengthening healthy coping skills, and we should involve his outpatient team in this as well in an effort to decrease utilization of emergency room services. (3) Cellulitis of left foot 10/28 - Nursing staff spoke with staff from the wound care clinic, where he is followed for his foot wound. We will monitor the wound and consult them if it worsens. In the meantime, he may use his special diabetic boot. Continue doxycycline at outpatient dose, and complete course of treatment which will end in 3 days. He will need to follow-up as scheduled at the wound clinic. (4) Diabetes mellitus with neurological manifestation 10/28 - diabetic diet, continue home medications, sliding scale insulin, and consult the diabetic pharmacist for glucose management. Continue home dose of gabapentin 600 mg 3 times a day and 400 mg daily at bedtime for neuropathy. (5) HTN (hypertension) Continue home dose of lisinopril and monitor blood pressure. (6) Nicotine dependence 10/28 - 21 g NicoDerm patch as needed for cravings, educate the patient about the risks of ongoing tobacco use and recommendations for smoking cessation, and arranged follow-up with PCP for ongoing education and smoking cessation treatment. (7) Obesity Educate the patient about the risks of continued obesity and recommendations for healthy diet and weight loss. He will receive a heart healthy diabetic diet here. (8) Chest pain 10/28 - had a cardiac workup in the emergency room and was medically cleared for admission to behavioral health unit. EKG yesterday showed sinus tachycardia, with a QTC of 469. Troponin 2 negative, pro-B natriuretic peptide was 28. The hospitalist had ordered a stress echo in the emergency room, but then discontinued it. We will consult cardiology if he becomes symptomatic. He is on a heart healthy diabetic diet. He will need follow-up with his PCP. (9) H/O deep venous thrombosis Continue home dose of Xarelto. CPT Code Initial Hospital Care: 09653 Problem Qualifiers (1) Depression: Depression Type: major depressive disorder Major depression recurrence: recurrent Active/Remission status: currently active Major depression episode severity: mild Qualified Codes: F33.0 - Major depressive disorder, recurrent , mild (2) Chest pain: Chest pain type: unspecified Qualified Codes: R07.9 - Chest pain, unspecified
--- NOTE | 2017-10-28 11:27 | Medical Student: BHU Only ---
Psychiatric Evaluation IDENTIFYING DATA: Bry Akhtar is a 41-year-old male, in 2016, who currently lives in [place] with his mother, and has past medical history of diabetes with polyneuropathy, recurrent MDD, history of DVT, gastroparesis, hyperlipidemia, tobacco use disorder and hypertension who presented to the ED with chest pain and subsequent expression of a desire not to live anymore. He was admitted on a 201 voluntary commitment. Information provided by the patient is considered to be reliable. CHIEF COMPLAINT: dont want to live anymore HISTORY OF PRESENT ILLNESS: Bry presented to ED with chest pain on 10/27/17. He was informed that all testing for his chest pain was normal. He became upset because he still had the chest pain. Bry is frustrated because he does not want to be told "what it isnt, he wants to be told what it is." He continued "the doctor said they would do a stress test tomorrow and if it was OK he would send me home." At this point, Bry said that he would hurt himself if they sent him home. He states that he did not have a plan as to how he would hurt himself though. Bry reports that he is tired of living with chronic pain, money difficulties (waiting on disability approval). He recently had to cancel an appointment with his PCP because he did not have enough money to buy gas for his car. He describes his mood as "bland." He has had depressive feelings since 2016 (the of his ), but his mood has actually been pretty good for the past three months. Yet, his energy level is always low and he sleeps a lot during the day. He denies feelings of hopelessness and has a normal appetite. Bry states that he wants to work on staying safe while he is here. Also, he believes his current medication regime is working well for him. Risk of violence to self within the last 6 months: yes; described above as a desire to hurt himself. Risk of violence to others within the last 6 months: no CURRENT MEDICATIONS: Scheduled Aripiprazole (Aripiprazole), 10 MG PO HS Aspirin (Aspirin Ec), 81 MG PO DAILY Atorvastatin (Lipitor), 10 MG PO DAILY Doxycycline Hyclate (Doxycycline Hyclate), 100 MG PO BID Duloxetine HCl (Duloxetine HCl), 60 MG PO DAILY Gabapentin (Gabapentin), 400 MG PO TID Gabapentin (Gabapentin), 600 MG PO TID Insulin Aspart (Novolog Flexpen), 28 UNITS SQ AC Insulin Glargine (Lantus Solostar), 50 UNITS SQ BID Lisinopril (Lisinopril), 10 MG PO DAILY Pantoprazole (Protonix), 40 MG PO DAILY Rivaroxaban (Xarelto Starter Pack 15 & 20 mg), 15 MG PO UD Scheduled PRN Nicotine Polacrilex (Nicorelief), 1 PIECE PO UD PRN for Nicotine Craving Polyethylene Glycol 3350 (Miralax), 17 GM PO DAILY PRN for Constipation Tramadol (Ultram), 25 MG PO Q8H PRN for Pain PAST PSYCHIATRIC HISTORY: Current OP Treatment: psychiatrist (changed to Lisandra Quispe at [facility], seen once since d/c from hospital in 06/2017), therapist (Prasanth seen once since d/c from hospital in 06/2017), correctional counselor/case manager (Dave- frequent contact, but not in the past couple weeks) Prior Psych Hospitalizations: [facility] (numerous-- 06/2017 most recent), other Access to a Gun: No Suicide Attempts: No (thought about overdosing with a bottle of pills in March 2017, but his nephew stopped him) Past Medication Trials mirtazapine lithium - toxicity quetiapine others he cannot recall PAST MEDICAL HISTORY: Current primary care practitioner is PCP is Dr. Olivares. medical history: (1) DVT, lower extremity, proximal, acute (2) Obstructive sleep apnea (3) Obesity (4) Nicotine dependence (5) Gastroparesis (6) IBS (irritable bowel syndrome) (7) HTN (hypertension) (8) Cellulitis of left foot (9) Intellectual disability (10) Diabetes mellitus with neurological manifestation (11) Recurrent chest pain (12) Chest pain history of head injury: no history of seizure: no history of iv drug use: no ALLERGIES: Coded Allergies: Cephalosporins (Verified Allergy, Unknown, [place], 05/12/17) FAMILY HISTORY: Cancer Diabetes mellitus MOTHER GRANDMOTHER UNCLE AUNT Gallbladder disease Heart disease Hypertension MOTHER FATHER Lung disease History of Suicide: No History of Substance Abuse: Yes (paternal uncle alcoholic) Psychiatric History: Yes (brother has unclear "psych problems," and uncle and nephew with multiple "psych hospitalizations") SUBSTANCE USE HISTORY: Tobacco use hx: one PPD when he has the money to but them Caffeine use hx: Alcohol use hx: once per month Denies illicit drug use in recent years. Cannabis use in his 20s. PERSONAL HISTORY: Lives in: [place] with his mother Childhood: 2 younger siblings Education: graduated from high school (some special ed classes) Work History: Unemployed and applied for disability. 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 Relationship History: ( in 2016) Children: none Spiritual Affiliation: Anabaptist Legal History: none Psychological Trauma History: denies ROS: 10 systeme ROS is negative except for what is reported in HPI. PHYSICAL EXAM: A physical exam was performed in the ED prior to admission to the [facility]. I accept that physical as medical clearance for the inpatient physical exam. MENTAL STATUS EXAM: Appearance is that of a disheveled, poorly groomed, malodorous male who appears his stated age. The patient is cooperative with the interview. Eye contact is good. Motor behavior is normal Speech: high volume, normal rate. Affect: mood congruent. Mood: "bland". Thought process: goal directed,concrete. Thought content: reality based without delusions. Perception: denies auditory and visual hallucinations. Cognition: The patient is oriented to year, season, month, and date as well as city and location. Recall is intact to three objects immediately and after several minutes. The patient concentration is impaired; pt unable to spell backwards. 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 Abstraction: intact. Intelligence is estimated to be below average. Insight is estimated to be limited. Judgment is estimated to be impaired. INVENTORY OF ASSETS: * strengths: Pt has supportive mother and has a desire to work to get better. * resources: has outpatient psychiatrist, therapist, and correctional counselor/case manager. * needs: safety plan and more consistent outpatient therapy. RISK ASSESSMENT: * Risk factors: Male, , , Health Problems, Mental Health Diagnoses (depression), Substance Use Disorders (tobacco), Previous psychiatric hospitalization. * Protective factors: Supportive family DIAGNOSTIC IMPRESSION: Bry Akhtar is a 41-year-old male with past medical history of diabetes with polyneuropathy, recurrent MDD, history of DVT, gastroparesis, hyperlipidemia, tobacco use disorder and hypertension, who presented to the ED with chest pain and subsequent expression of a desire not to live anymore. The pt is diagnosed with recurrent MDD, but is not currently in a depressive episode. He became overwhelmed with stress in the ED regarding the lack of answers he desired regarding his chest pain and subsequently developed suicidal ideation. The pt' s mood has been stable and described as "good" for the past three months. He believes his current medication regime is working well. Inpatient treatment will focus on developing coping skills and establishing more consistent outpatient therapy. DSM-V DIAGNOSIS: recurrent MDD RECOMMENDATIONS: 1. Recurrent MDD a. will continue aripiprazole 10MG QHS, duloxetine 60MG daily b. continue to monitor mood and suicidal thoughts c. work on developing adequate coping skills d. establish more consistent outpatient therapy 2. Medication Monitoring: a. atypical antipsychotics (FBS and lipids if results from the last 3 months not available)
[2017-10-28] MEDS: GABAPENTIN 400 MG CAP PO SCH (20:57)
[2017-10-28] MEDS: ARIPIprazole TAB 10 MG TAB PO SCH (20:57)
[2017-10-29 06:48] VITALS: BP_SYST 122; BP_SYST 147; BP_DIAS 78; BP_DIAS 90; PULSE 105; PULSE 99; TEMP 36.8
[2017-10-29] MEDS: NICOTINE 21 MG/24 HR TDSY EXT SCH (09:00)
[2017-10-29] MEDS: POLYETHYLENE (MIRALAX) 17 GM PACK PO SCH (09:00)
[2017-10-29] MEDS: ASPIRIN 81 MG ECTAB PO SCH (09:36)
[2017-10-29] MEDS: PANTOprazole SOD 40 MG TAB PO SCH (09:36)
[2017-10-29] MEDS: DULOXETINE HCL 60 MG CAP PO SCH (09:36)
[2017-10-29] MEDS: ATORVASTATIN 10 MG TAB PO SCH (09:36)
[2017-10-29] MEDS: LISINOPRIL 10 MG TAB PO SCH (09:36)
[2017-10-29] MEDS: GABAPENTIN 600 MG TAB PO SCH ×3 (09:37→21:52)
[2017-10-29] MEDS: DOXYCYCLINE HYCLATE 100 MG CAP PO SCH ×2 (09:37→21:52)
[2017-10-29] MEDS: INSULIN GLARGINE SOLOSTAR 100 UNITS/ML 3 ML PEN SC SCH ×2 (09:40→21:52)
[2017-10-29] MEDS: INSULIN ASPART 100 UNITS/ML 3 ML PEN SC SCH ×4 (09:43→21:51)
[2017-10-29] MEDS: NICOTINE POLACRILEX 2 MG GUM MT PRN ×2 (09:43→14:57)
--- NOTE | 2017-10-29 11:40 | Pharmacy Progress Note ---
Pharmacy Glycemic Short Note 2 Date of Service Oct 29, 2017. Outpatient Anti-diabetic Regimen: * Lantus 50 units BID * Novolog 28 units AC ASSESSMENT: * 41 yo M admitted overnight to [facility] with chest pain * Pt well known to glycemic service from multiple prior admissions * Plan will be to continue same regimen that was stable for him nearly a week ago. * Patient typically requires less insulin in house as compared to outpatient regimen * patient has received 98 units of insulin over the past 24 hrs * 70 units of basal insulin with Lantus * 28 units of prandial insulin with NovoLog * Regimen is slightly basal heavy but AM fasting BSG is in goal range with current dosing. Will decrease basal insulin dose if AM fasting BSG starts to trend downwards. PLAN FOR INPATIENT GLYCEMIC CONTROL: continue SQ basal bolus insulin regimen based on a total daily dose of 100-130 units/day * Basal insulin * Lantus 35 units SQ BID * Bolus insulin * NovoLog per scale ACHS or Q6hrs while NPO * Goal Range: Low 110 mg/dL - High 140 mg/dL * Correction Factor: 10 mg/dL/unit * Nutritional / Prandial insulin per carb ratio of 1 unit per 4 grams CHO consumed
[2017-10-29] MEDS: TERBINAFINE CR 30 GM TUBE EXT SCH ×2 (12:25→21:48)
[2017-10-29] MEDS: GABAPENTIN 400 MG CAP PO SCH ×2 (14:03→21:53)
--- NOTE | 2017-10-29 16:31 | Psychiatric Progress Notes ---
Progress Note Date of Service Oct 29, 2017. Interval History Bry Akhtar is a 41-year-old male who lives in [place], has a history of depression, [employer] disability, DVT, diabetes, and hypertension, and was admitted voluntarily on Oct 27, 2017 at 21:01 after he presented to the emergency room via EMS for chest pain. In the emergency room, he endorsed suicidal ideation with a plan to overdose on his prescription medications. Chief Complaint "I'm not ready yet", referring to needing to stay as still having SI. Subjective Patient was seen & assessed interval progress reviewed with Treatment Team. Rates his mood as 6-7/10 and "sore". Overall notes less "jumping" in his legs and gait appears better than on previous contacts. He is cooperative within the milieu and continues to declined a meeting with his mother/sister. States that his camping trailer has a new kerosene heater so that the winter doesn't seem so bad. He appears less spontaneous in conversation on on previous hospitalizations under my care and seemed overly preoccupied with a very small bruise on one of his right toes. Review of Systems Psych: denies symptoms other than stated above Constitutional: denied Cardiovascular: denied GI: denied Neurologic: denied other than above Remainder of 10 body systems also reviewed and denied other than noted above. Sleep Information Total Hours of Sleep: 5.75 Meal Information Percent of Breakfast Consumed: 100 Percent of Lunch Consumed: 100 Percent of Dinner Consumed: 100 Mental Status Exam During interview pt is: alert and oriented, cooperative Appearance: disheveled Eye contact is: fair Motor behavior is: tremor (legs, no akathisia) Speech: normal in rate, rhythm & volume Affect: mood congruent Mood is: depressed Thought process: concrete Thought content: reality based without delusions Suicidal thought are: denied Homicidal thoughts are: denied Hallucinations: denies auditory, denies visual Cognition: memory grossly intact, language grossly intact Intelligence estimated to be: below average (intellectual disability) Insight: impaired Judgement: impaired Impression 41-year-old male who lives in [place] with family, has a history of depression and intellectual disability as well as multiple medical problems, who has had numerous emergency room visits and inpatient admissions for his medical problems and suicidal ideation, which he often voices in the context of being informed he's been discharged from the hospital. There is a concern for malingering, as he has denied suicidal thoughts when presenting to the emergency room, until he is informed that he is not going to be admitted medically, at which point he stated he would kill himself if he had to go home. He has multiple psychosocial stressors, including the of his in June 2016, financial strain, unemployment, and trying to get disability. He requires inpatient treatment due to the risk of suicide if discharged prematurely. Plan (1) Depression 10/28 - Continue home home dose of aripiprazole 10 mg daily at bedtime, and duloxetine 60mg daily. Monitor mood symptoms as patient reports mood was good until he became overwhelmed in the ER yesterday and felt suicidal, and consider need to increase duloxetine. - Fasting glucose on 05/14/2017 was 168, and hemoglobin A1c on 07/27/2017 was 9.2 (with an estimated average glucose of 217). Fasting lipid profile on 2016 showed elevated triglycerides 263, elevated cholesterol 207, and normal LDL and HDL. - Every 15 minute checks for safety. - Attend and participate in unit groups and therapy, work on healthy coping skills and discharge safety plan. - Encourage family meeting with mother and sister, who he says are supportive, but he is declining she does not feel this would be helpful. - Coordinate with outpatient mental health providers, including psychiatrist, therapist, and medical case manager. He also has a peer star specialist and was scheduled to attend [facility] at the time of his last discharge. He has been poorly adherent with all of the services due to frequent hospitalizations for his medical problems, and would benefit from reestablishing appointments with them. (2) Intellectual disability Per records, mild MR. Patient has a pattern of voicing suicidal thoughts when he is frustrated and does not have his needs met immediately, and has repeatedly presented to the emergency room with medical complaints, and denied suicidal ideation until he is informed that he will be discharged. Cannot rule out malingering, but also likely influenced by his cognitive limitations. He would benefit from assistance in strengthening healthy coping skills, and we should involve his outpatient team in this as well in an effort to decrease utilization of emergency room services. (3) Cellulitis of left foot 10/28 - Nursing staff spoke with staff from the wound care clinic, where he is followed for his foot wound. We will monitor the wound and consult them if it worsens. In the meantime, he may use his special diabetic boot. Continue doxycycline at outpatient dose, and complete course of treatment which will end in 3 days. He will need to follow-up as scheduled at the wound clinic. (4) Diabetes mellitus with neurological manifestation 10/28 - diabetic diet, continue home medications, sliding scale insulin, and consult the diabetic pharmacist for glucose management. Continue home dose of gabapentin 600 mg 3 times a day and 400 mg daily at bedtime for neuropathy. (5) HTN (hypertension) Continue home dose of lisinopril and monitor blood pressure. (6) Nicotine dependence 10/28 - 21 g NicoDerm patch as needed for cravings, educate the patient about the risks of ongoing tobacco use and recommendations for smoking cessation, and arranged follow-up with PCP for ongoing education and smoking cessation treatment. (7) Obesity Educate the patient about the risks of continued obesity and recommendations for healthy diet and weight loss. He will receive a heart healthy diabetic diet here. (8) Chest pain 10/28 - had a cardiac workup in the emergency room and was medically cleared for admission to behavioral health unit. EKG yesterday showed sinus tachycardia, with a QTC of 469. Troponin 2 negative, pro-B natriuretic peptide was 28. The hospitalist had ordered a stress echo in the emergency room, but then discontinued it. We will consult cardiology if he becomes symptomatic. He is on a heart healthy diabetic diet. He will need follow-up with his PCP. (9) H/O deep venous thrombosis Continue home dose of Xarelto. Discharge / Aftercare Planning Primary Care Physician: Name: Dr. Elise Trujillo Phone Number: Date of Appointment: Nov 17, 2017 Time of Appointment: 7:45 am Appointment Notes: [address] [place] [id number] Psychiatrist: Name: Lisandra Smith Date of Appointment: Nov 10, 2017 Time of Appointment: 9:30 am Appointment Notes: [address] [facility] [address] Therapist: Name: Margarita Smith Date of Appointment: Nov 10, 2017 Time of Appointment: 8:00 am Appointment Notes: [address] [facility] [address] Retail Merchandising Specialist: Name: NADIA Jackman ID - [id number] Date of Appointment: Nov 03, 2017 Time of Appointment: 11:30 am Appointment Notes: [address] [facility] [address] Specialist: Name: Dr. Payam Trujillo - sleep specialist Phone Number: Date of Appointment: Nov 25, 2017 Time of Appointment: 12:50 pm Appointment Notes: [address] [facility] [address] Visit Code E&M Code: 15448 Inventory Assets Strengths: Willing for treatment, has extensive outpatient mental health providers. Needs: Company has a plan to decrease utilization of the emergency room, improved control of multiple medical conditions, improved coping skills and frustration tolerance Risk Factors Assessment Male: Yes : Yes /single/: Yes Higher / Fall in social status: No Health problems: Yes Mental Health Diagnoses: Yes Substance use disorders: Yes (nicotine) Family history of suicide: No Previous psychiatric stay: Yes Hopelessness: No Smoker: Yes Protective Factors Assessment Pentecostal beliefs: No : No Responsible for young children: No Employed: No Stable relationships: No Supportive family: Yes Data Vital Signs Last 24 Hrs: Date Time Temp Pulse Resp B/P (MAP) Pulse Ox O2 Delivery O2 Flow Rate FiO2 10/29/17 06:48 36.8 99 18 147/90 105 122/78 Meds Administered Last 24 Hrs: Meds Administered (Past 24Hrs) Medications (Trade) Dose Ordered Sig/Mario Alberto Route Start Time Stop Time Status Last Admin Dose Admin Acetaminophen (Tylenol Tab) 650 mg Q4H PRN PO 10/27/17 21:30 11/26/17 21:29 10/29/17 00:59 650 MG Aspirin (Ecotrin Tab) 81 mg QAM PO 10/28/17 09:00 11/27/17 08:59 10/29/17 09:36 81 MG Aripiprazole (Abilify Tab) 10 mg HS PO 10/27/17 21:00 11/26/17 20:59 10/28/17 20:57 10 MG Atorvastatin Calcium (Lipitor Tab) 10 mg QAM PO 10/28/17 09:00 11/27/17 08:59 10/29/17 09:36 10 MG Duloxetine HCl (Cymbalta Cap) 60 mg DAILY PO 10/28/17 09:00 11/27/17 08:59 1/12/18 09:36 60 MG Gabapentin (Neurontin Cap) 400 mg HS PO 10/27/17 21:00 10/29/17 09:58 DC 10/28/17 20:57 400 MG Lisinopril (Zestril Tab) 10 mg DAILY PO 10/28/17 09:00 11/27/17 08:59 10/29/17 09:36 10 MG Gabapentin (Neurontin Tab) 600 mg TID PO 10/27/17 21:00 11/26/17 20:59 10/29/17 14:03 600 MG Nicotine Polacrilex (Nicorette 2MG Gum) 1 piece Q2H PRN MT 10/27/17 21:30 11/26/17 21:29 10/29/17 14:57 1 PIECE Pantoprazole Sodium (Protonix Tab) 40 mg QAM PO 10/28/17 09:00 11/27/17 08:59 10/29/17 09:36 40 MG Doxycycline Hyclate (Vibramycin Cap) 100 mg BID PO 10/27/17 21:00 10/31/17 23:59 10/29/17 09:37 100 MG Insulin Glargine (Lantus Solostar Pen) SEE PROTOCOL TEXT BID SC 10/27/17 21:00 10/29/17 09:05 DC 10/28/17 21:01 30 UNITS Insulin Aspart (novoLOG ASPART) SLIDING SCALE ACHS SC 10/27/17 21:00 11/26/17 20:59 10/29/17 13:31 11 UNITS Insulin Glargine (Lantus Solostar Pen) 35 units BID SC 10/29/17 09:00 11/28/17 08:59 10/29/17 09:40 35 UNITS Gabapentin (Neurontin Cap) 400 mg TID PO 10/29/17 14:00 11/26/17 20:59 10/29/17 14:03 400 MG Terbinafine HCl (Lamisil At Cream) 1 appl BID EXT 10/29/17 22:00 11/28/17 21:59 10/29/17 12:25 1 APPL Lab Results Last 24 Hrs: Last 24 Hours Test 10/28/17 17:10 10/28/17 20:30 10/29/17 07:55 10/29/17 12:03 Bedside Glucose 129 mg/dl 115 mg/dl 140 mg/dl 154 mg/dl Problem Qualifiers (1) Depression: Depression Type: major depressive disorder Major depression recurrence: recurrent Active/Remission status: currently active Major depression episode severity: mild Qualified Codes: F33.0 - Major depressive disorder, recurrent , mild (2) Chest pain: Chest pain type: unspecified Qualified Codes: R07.9 - Chest pain, unspecified
[2017-10-29] MEDS: ARIPIprazole TAB 10 MG TAB PO SCH (21:53)
[2017-10-30 06:57] VITALS: BP_SYST 119; BP_SYST 138; BP_DIAS 72; BP_DIAS 85; PULSE 101; PULSE 93; TEMP 36.4
[2017-10-30] MEDS: NICOTINE 21 MG/24 HR TDSY EXT SCH (09:00)
[2017-10-30] MEDS: POLYETHYLENE (MIRALAX) 17 GM PACK PO SCH (09:00)
[2017-10-30] MEDS: TERBINAFINE CR 30 GM TUBE EXT SCH (09:00)
[2017-10-30] MEDS: DULOXETINE HCL 60 MG CAP PO SCH (09:23)
[2017-10-30] MEDS: ASPIRIN 81 MG ECTAB PO SCH (09:24)
[2017-10-30] MEDS: ATORVASTATIN 10 MG TAB PO SCH (09:24)
[2017-10-30] MEDS: GABAPENTIN 400 MG CAP PO SCH ×2 (09:24→13:48)
[2017-10-30] MEDS: NICOTINE POLACRILEX 2 MG GUM MT PRN (09:25)
[2017-10-30] MEDS: PANTOprazole SOD 40 MG TAB PO SCH (09:25)
[2017-10-30] MEDS: DOXYCYCLINE HYCLATE 100 MG CAP PO SCH (09:25)
[2017-10-30] MEDS: LISINOPRIL 10 MG TAB PO SCH (09:25)
[2017-10-30] MEDS: GABAPENTIN 600 MG TAB PO SCH ×2 (09:25→13:48)
[2017-10-30] MEDS: INSULIN GLARGINE SOLOSTAR 100 UNITS/ML 3 ML PEN SC SCH (09:29)
[2017-10-30] MEDS: INSULIN ASPART 100 UNITS/ML 3 ML PEN SC SCH ×2 (09:32→13:48)
[2017-10-30 10:15] VITALS: BP 148/85; PULSE 109
--- NOTE | 2017-10-30 11:46 | Psychiatric Progress Notes ---
Progress Note Date of Service Oct 30, 2017. Interval History Bry Akhtar is a 41-year-old male who lives in [place], has a history of depression, [employer] disability, DVT, diabetes, and hypertension, and was admitted voluntarily on Oct 27, 2017 at 21:01 after he presented to the emergency room via EMS for chest pain. In the emergency room, he endorsed suicidal ideation with a plan to overdose on his prescription medications. Chief Complaint "eh...so so". Subjective Patient was seen & assessed interval progress reviewed with Nursing. Pt reports his mood is 6/10 and remains unchanged. He feels his mood is "so so" due to current chest tightness he has been experiencing for the past 10-15 minutes. He states it is similar to the pain that brought him into the emergency room which he has had periodically since admission. His ED work-up is negative for ischemic changes and tests completed in the ED were reviewed by this provider. Pt feels pain is about a 7/10 and he continues to describe a "vice-like" quality. Pt is optimistic pain will resolve momentarily. He is unable to elaborate much more on improvement of his psychiatric symptoms and feels he has remained "about the same". Review of Systems Psych: denies symptoms other than stated above Constitutional: denied Cardiovascular: reports chest tightness Respiratory: denies shortness of breath GI: denied Neurologic: denied Remainder of 10 body systems also reviewed and denied other than noted above. Sleep Information Total Hours of Sleep: 7.00 Meal Information Percent of Breakfast Consumed: 100 Percent of Lunch Consumed: 100 Percent of Dinner Consumed: 100 Mental Status Exam During interview pt is: alert and oriented, cooperative Appearance: disheveled Eye contact is: fair Motor behavior is: tremor (in legs, no apparent akathisia) Speech: normal in rate, rhythm & volume Affect: mood congruent, depressed, flat Mood is: depressed ("so so") Thought process: concrete (ID diagnosis) Thought content: reality based without delusions Suicidal thought are: denied Homicidal thoughts are: denied Hallucinations: denies auditory, denies visual Cognition: memory grossly intact, language grossly intact Intelligence estimated to be: below average (intellectual disability) Insight: impaired Judgement: impaired Impression Mood remains steady with administration of home medications. Pt states he feels is mood is "so so", but is also experiencing an episode of chest pain during the interview. Previous workup in the ED was negative for ischemic changes and pt was cleared for discharge prior to admitting SI. Will continue to question throughout the day to determine if chest pain resolved or if further work-up is necessary. Pt denies any adverse reactions to medications and is feeling stable in regard to mood and depressive symptoms. Inpatient hospitalization required due to high risk of suicide if discharged too quickly. Plan (1) Depression 10/28 - Continue home home dose of aripiprazole 10 mg daily at bedtime, and duloxetine 60mg daily. Monitor mood symptoms as patient reports mood was good until he became overwhelmed in the ER yesterday and felt suicidal, and consider need to increase duloxetine. - Fasting glucose on 05/14/2017 was 168, and hemoglobin A1c on 07/27/2017 was 9.2 (with an estimated average glucose of 217). Fasting lipid profile on 2016 showed elevated triglycerides 263, elevated cholesterol 207, and normal LDL and HDL. - Every 15 minute checks for safety. - Attend and participate in unit groups and therapy, work on healthy coping skills and discharge safety plan. - Encourage family meeting with mother and sister, who he says are supportive, but he is declining she does not feel this would be helpful. - Coordinate with outpatient mental health providers, including psychiatrist, therapist, and family service caseworker. He also has a peer star specialist and was scheduled to attend [facility] at the time of his last discharge. He has been poorly adherent with all of the services due to frequent hospitalizations for his medical problems, and would benefit from reestablishing appointments with them. 10/30 - Continue medications as above. - Encourage participation in group therapy and activities. (2) Intellectual disability Per records, mild MR. Patient has a pattern of voicing suicidal thoughts when he is frustrated and does not have his needs met immediately, and has repeatedly presented to the emergency room with medical complaints, and denied suicidal ideation until he is informed that he will be discharged. Cannot rule out malingering, but also likely influenced by his cognitive limitations. He would benefit from assistance in strengthening healthy coping skills, and we should involve his outpatient team in this as well in an effort to decrease utilization of emergency room services. (3) Cellulitis of left foot 10/28 - Nursing staff spoke with staff from the wound care clinic, where he is followed for his foot wound. We will monitor the wound and consult them if it worsens. In the meantime, he may use his special diabetic boot. Continue doxycycline at outpatient dose, and complete course of treatment which will end in 3 days. He will need to follow-up as scheduled at the wound clinic. 10/30 - Pt questioned if Tramadol available for use if in pain. Reassured that it was on his medication list and he could request if necessary. (4) Diabetes mellitus with neurological manifestation 10/28 - diabetic diet, continue home medications, sliding scale insulin, and consult the diabetic pharmacist for glucose management. Continue home dose of gabapentin 600 mg 3 times a day and 400 mg daily at bedtime for neuropathy. (5) HTN (hypertension) Continue home dose of lisinopril and monitor blood pressure. (6) Nicotine dependence 10/28 - 21 g NicoDerm patch as needed for cravings, educate the patient about the risks of ongoing tobacco use and recommendations for smoking cessation, and arranged follow-up with PCP for ongoing education and smoking cessation treatment. (7) Obesity Educate the patient about the risks of continued obesity and recommendations for healthy diet and weight loss. He will receive a heart healthy diabetic diet here. (8) Chest pain 10/28 - had a cardiac workup in the emergency room and was medically cleared for admission to behavioral health unit. EKG yesterday showed sinus tachycardia, with a QTC of 469. Troponin 2 negative, pro-B natriuretic peptide was 28. The hospitalist had ordered a stress echo in the emergency room, but then discontinued it. We will consult cardiology if he becomes symptomatic. He is on a heart healthy diabetic diet. He will need follow-up with his PCP. 10/30 - Pt reporting chest pain similar to ED presentation, continuing to monitor. EKG ordered due to complaint of Left arm pain. Awaiting interpretation, will consider cardiology consult if recommended or pain is unresolved. (9) H/O deep venous thrombosis Continue home dose of Xarelto. Discharge / Aftercare Planning Primary Care Physician: Name: Dr. Elise Trujillo Phone Number: Date of Appointment: Nov 17, 2017 Time of Appointment: 7:45 am Appointment Notes: [address] [place] [id number] Psychiatrist: Name: Lisandra Smith Date of Appointment: Nov 10, 2017 Time of Appointment: 9:30 am Appointment Notes: [address] [facility] [id number] Therapist: Name: Margarita Smith Date of Appointment: Nov 10, 2017 Time of Appointment: 8:00 am Appointment Notes: [address] [facility] [id number] Cake Froster: Name: Dave De OliveiraNADIA [facility] - [facility] Date of Appointment: Nov 03, 2017 Time of Appointment: 11:30 am Appointment Notes: [address] [facility] [address] [place] [id number] Specialist: Name: Dr. Payam Trujillo - sleep specialist Phone Number: Date of Appointment: Nov 25, 2017 Time of Appointment: 12:50 pm Appointment Notes: [address] [facility] [address] Visit Code E&M Code: 43103 Inventory Assets Strengths: Willing for treatment, has extensive outpatient mental health providers. Needs: Company has a plan to decrease utilization of the emergency room, improved control of multiple medical conditions, improved coping skills and frustration tolerance Risk Factors Assessment Male: Yes : Yes /single/: Yes Higher / Fall in social status: No Health problems: Yes Mental Health Diagnoses: Yes Substance use disorders: Yes (nicotine) Family history of suicide: No Previous psychiatric stay: Yes Hopelessness: No Smoker: Yes Protective Factors Assessment Restorationist beliefs: No : No Responsible for young children: No Employed: No Stable relationships: No Supportive family: Yes Data Vital Signs Last 24 Hrs: Date Time Temp Pulse Resp B/P (MAP) Pulse Ox O2 Delivery O2 Flow Rate FiO2 10/30/17 06:57 36.4 93 20 138/85 101 119/72 Meds Administered Last 24 Hrs: Meds Administered (Past 24Hrs) Medications (Trade) Dose Ordered Sig/Mario Alberto Route Start Time Stop Time Status Last Admin Dose Admin Insulin Glargine (Lantus Solostar Pen) 35 units BID SC 10/29/17 09:00 11/28/17 08:59 10/30/17 09:29 35 UNITS Gabapentin (Neurontin Cap) 400 mg TID PO 10/29/17 14:00 11/26/17 20:59 10/30/17 09:24 400 MG Terbinafine HCl (Lamisil At Cream) 1 appl BID EXT 10/29/17 22:00 11/28/17 21:59 10/29/17 21:48 1 APPL Lab Results Last 24 Hrs: Last 24 Hours Test 10/29/17 12:03 10/29/17 17:11 10/29/17 21:21 10/30/17 08:49 Bedside Glucose 154 mg/dl 116 mg/dl 98 mg/dl 135 mg/dl Problem Qualifiers (1) Depression: Depression Type: major depressive disorder Major depression recurrence: recurrent Active/Remission status: currently active Major depression episode severity: mild Qualified Codes: F33.0 - Major depressive disorder, recurrent , mild (2) Chest pain: Chest pain type: unspecified Qualified Codes: R07.9 - Chest pain, unspecified
[2017-10-30 13:00] VITALS: BP 125/78; PULSE 109
[2017-10-30] MEDS ORDERED: ASPIRIN 81 MG CHEW PO STA (14:21)
--- NOTE | 2017-10-30 14:32 | Discharge Instructions ---
Discharge Information Report Includes Report will include the: Discharge Instructions & Summary Admission Admission Date / Time: Oct 27, 2017 at 21:01 Reason for Admission: Suicidal Discharge Discharge Diagnosis / Problem: Suicidal, Chest Pain Condition at Discharge: Fair Discharge Goals Goal(s): Improve function, Increase independence, Therapeutic intervention Activity Recommendations Activity Limitations: resume your previous activity . Instructions / Follow-Up Instructions / Follow-Up . SPECIAL CARE INSTRUCTIONS: 1. Follow through with your scheduled aftercare appointments. If unable to keep an appointment, please call to reschedule. 2. Take your medication only as prescribed. Medication should not be changed or stopped without the approval of your doctor. In the event of worsening symptoms or concerns about side effects, contact your doctor immediately. 3. Utilize new healthy coping skills, anger management skills, and stress management skills learned during your hospitalization. Journal feelings and process them with a support person. Identify stressors or situations that may result in relapse, deterioration or inappropriate behaviors and develop a plan to deal with those issues. 4. If your coping skills are ineffective and you are in crisis, contact your outpatient providers for direction. If unable to reach your providers, please call the CAN HELP LINE AT or go to the closest Emergency Room. 5. Avoid alcohol and un-prescribed drugs. 6. You have been provided with the Mental Health Advance Directives Pamphlet for your review. AFTERCARE APPOINTMENTS: * Please call your insurance company prior to your scheduled appointment to confirm your aftercare providers are covered. Take your insurance information to your appointments. . Discharge / Aftercare Planning Primary Care Physician: Name: Dr. Elise Trujillo Phone Number: Date of Appointment: Nov 17, 2017 Time of Appointment: 7:45 am Appointment Notes: [address] [place] [id number] Psychiatrist: Name: Lisandra Smith Date of Appointment: Nov 10, 2017 Time of Appointment: 9:30 am Appointment Notes: [address] [facility] [address] Therapist: Name Of Therapist: Margarita Smith Date of Appointment: Nov 10, 2017 Time of Appointment: 8:00 am Appointment Comments: [address] [facility] [address] Credit Director: Name: NADIA Jackman [facility] Date of Appointment: Nov 03, 2017 Time of Appointment: 11:30 am Appointment Notes: [address] [facility] [address] Specialist: Name: Dr. Payam Trujillo - sleep specialist Phone Number: Date of Appointment: Nov 25, 2017 Time of Appointment: 12:50 pm Appointment Notes: [address] [facility] [address] . Follow-Up Care Plan for Follow-Up Care: Pt established with providers at [facility]. Has appointments with both psychiatric provider and therapist on 11/10/17. Due to chronic medical conditions, follow up appointment also scheduled with pt's PCP, Dr. Olivares. Pt also has current manager rn case as well. Current Hospital Diet Patient's current hospital diet: AHA Diet (Heart Healthy), Diabetes Type 2 Diet Discharge Diet Recommended Diet: AHA Diet (Heart Healthy), Diabetes Type 2 Diet Procedures Procedures Performed: No Pending Studies Pending Studies at Discharge: No Medical Emergencies . Who to Call and When: Medical Emergencies: For questions or emergencies related to your hospital stay, please contact the Inpatient Behavioral Health Unit at [phone]. A rn psychiatric is on-call 10/05 for the Behavioral Health Unit for emergencies At any time you feel your situation is an emergency, you may also call 911 immediately. . Non-Emergent Contact Non-Emergency issues call your: Primary Care Provider, Psychiatrist, Therapist , Credit Director Past History Medical & Surgical History: (1) HTN (hypertension) (2) Cellulitis of left foot (3) Recurrent chest pain (4) H/O deep venous thrombosis (5) Diabetes mellitus with neurological manifestation Advance Directives Do You Have an Existing Mental: No Existing Living Will: No Existing Power of Public Relations Counselor: No Advance Directives Info Given: To Pt/S.O. Advance Directives Reason: Declines as Mental Health Visit. Discharge Summary Admission HPI Per the Admitting provider: The patient is well-known to us from multiple previous psychiatric and medical admissions, most recently on our unit for 2 separate admissions in June 2017. At that time, he voiced suicidal thoughts after he was informed he was not accepted to [facility]. His aripiprazole was decreased to 10 mg daily as he reported muscle twitching, and he was cross tapered from venlafaxine XR to duloxetine. He was discharged to follow-up with his therapist and psychiatrist at [facility], but has since switched his care to [facility]. In the interim, he has had numerous ER visits and for medical admissions for left sided numbness, left foot cellulitis, and chest pain. He frequently presents to the emergency room, and has had 21 visits in the past 6 months. He is now on duloxetine 60 mg daily and aripiprazole 10 mg daily at bedtime. Yesterday, he presented to the emergency room via EMS with a chief complaint of chest pain, that occurred while he was at the grocery store. He had received nitroglycerin and aspirin in route to the hospital with no relief. He reported left-sided chest pain radiating to his left shoulder and arm, tingling in feet, shortness of breath, and felt hot. He had recently been started on Xarelto for DVT. On exam, he was tachycardic to 122 bpm but in no acute distress and blood pressure was elevated. Chest x-ray showed no acute abnormalities and chest/thorax CTA was negative. EKG showed sinus tachycardia but no ischemic changes. He had an echo on October 19 which showed some tachycardia but no wall motion abnormality and a fairly normal EF. Troponins 2 were negative. His drug screen was positive for opiates. He is not prescribed opiates as an outpatient and denies illicit substance abuse, but was given morphine 10mg and [place] 5/325mg in the ER at 13:59, and UDS was not obtained until 15:50. Today, the patient was seen with Adarsh Leggett, MS 3 with his permission. He reports that his mood has actually been fairly well-controlled since he was discharged from our unit in June. He transferred his care to Lisandra Quispe at [facility], but admits he has not seen her in some time due to his multiple medical admissions. 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 He states he is now on medical leave again due to ongoing multiple medical problems. He states that he became acutely overwhelmed and suicidal yesterday in the emergency room when he was told he was not being admitted to the medical floor, as he was frustrated that the doctors couldn't tell him what was causing his chest pain. He is able to review basic information about his recent medical treatment, and we again reviewed the testing that was performed yesterday and potential causes of chest pain that were ruled out. We also discussed atypical chest pain, and the things that he can do to try to decrease these symptoms in the future, such as smoking cessation, weight loss, healthy diet, good medication compliance, and following his various doctors recommendations. He has been able to cut back his smoking from 2PPD to 1 pack per day. He denies significant anxiety recently, and denies suicidal thoughts other than yesterday. He denies that he had a plan, and feels safe here in the hospital. He denies symptoms of zeb and psychosis. He feels his current medications are helping, and does not wish to change them. Outpatient records from [facility] reviewed: Progress note from medication management visit on 07/30/2017 was sent, but no other records. He reported mood had been good, and he had just been discharged from the hospital after a medical admission for left-sided numbness and weakness. He denied problems with anxiety but reported ongoing sleep difficulties, and admitted he did not use his CPAP machine as it was uncomfortable. Diagnosis is recurrent depression. He was continued on duloxetine 60 mg and aripiprazole 10 mg, and was told to follow-up in 8 weeks. Hospital Course (1) Depression 10/28 - Continue home home dose of aripiprazole 10 mg daily at bedtime, and duloxetine 60mg daily. Monitor mood symptoms as patient reports mood was good until he became overwhelmed in the ER yesterday and felt suicidal, and consider need to increase duloxetine. - Fasting glucose on 05/14/2017 was 168, and hemoglobin A1c on 07/27/2017 was 9.2 (with an estimated average glucose of 217). Fasting lipid profile on 2016 showed elevated triglycerides 263, elevated cholesterol 207, and normal LDL and HDL. - Every 15 minute checks for safety. - Attend and participate in unit groups and therapy, work on healthy coping skills and discharge safety plan. - Encourage family meeting with mother and sister, who he says are supportive, but he is declining she does not feel this would be helpful. - Coordinate with outpatient mental health providers, including psychiatrist, therapist, and manager rn case. He also has a peer star specialist and was scheduled to attend [facility] at the time of his last discharge. He has been poorly adherent with all of the services due to frequent hospitalizations for his medical problems, and would benefit from reestablishing appointments with them. 10/30 - Continue medications as above. - Encourage participation in group therapy and activities. (2) Intellectual disability Per records, mild Patient has a pattern of voicing suicidal thoughts when he is frustrated and does not have his needs met immediately, and has repeatedly presented to the emergency room with medical complaints, and denied suicidal ideation until he is informed that he will be discharged. Cannot rule out malingering, but also likely influenced by his cognitive limitations. He would benefit from assistance in strengthening healthy coping skills, and we should involve his outpatient team in this as well in an effort to decrease utilization of emergency room services. (3) Cellulitis of left foot 10/28 - Nursing staff spoke with staff from the wound care clinic, where he is followed for his foot wound. We will monitor the wound and consult them if it worsens. In the meantime, he may use his special diabetic boot. Continue doxycycline at outpatient dose, and complete course of treatment which will end in 3 days. He will need to follow-up as scheduled at the wound clinic. 10/30 - Pt questioned if Tramadol available for use if in pain. Reassured that it was on his medication list and he could request if necessary. (4) Diabetes mellitus with neurological manifestation 10/28 - diabetic diet, continue home medications, sliding scale insulin, and consult the diabetic pharmacist for glucose management. Continue home dose of gabapentin 600 mg 3 times a day and 400 mg daily at bedtime for neuropathy. (5) HTN (hypertension) Continue home dose of lisinopril and monitor blood pressure. (6) Nicotine dependence 10/28 - 21 g NicoDerm patch as needed for cravings, educate the patient about the risks of ongoing tobacco use and recommendations for smoking cessation, and arranged follow-up with PCP for ongoing education and smoking cessation treatment. (7) Obesity Educate the patient about the risks of continued obesity and recommendations for healthy diet and weight loss. He will receive a heart healthy diabetic diet here. (8) Chest pain 10/28 - had a cardiac workup in the emergency room and was medically cleared for admission to behavioral health unit. EKG yesterday showed sinus tachycardia, with a QTC of 469. Troponin 2 negative, pro-B natriuretic peptide was 28. The hospitalist had ordered a stress echo in the emergency room, but then discontinued it. We will consult cardiology if he becomes symptomatic. He is on a heart healthy diabetic diet. He will need follow-up with his PCP. 10/30 - Pt reporting chest pain similar to ED presentation, continuing to monitor. EKG ordered due to complaint of Left arm pain. Awaiting interpretation, will consider cardiology consult if recommended or pain is unresolved. (9) H/O deep venous thrombosis Continue home dose of Xarelto. Risk Factors Assessment Male: Yes : Yes /single/: Yes Higher / Fall in social status: No Health problems: Yes Mental Health Diagnoses: Yes Substance use disorders: Yes (nicotine) Family history of suicide: No Previous psychiatric stay: Yes Hopelessness: No Smoker: Yes Protective Factors Assessment Jehovah'S Witness beliefs: No : No Responsible for young children: No Employed: No Stable relationships: No Supportive family: Yes Day of Discharge Assessment Hospital Course & Day of Discharge Assessment - Pt admitted to [address] [place] [address] on 10/27 following ED visit for chest pain. Pt was evaluated and cleared for discharge in the ED when he became suicidal. Pt subsequently admitted for mental health treatment. Place back on home medications which have been helpful for him in controlling mood symptoms. Pt has been able to engage in group therapy and group activities while on the unit. Ongoing medication management and risk factor mitigation at the time of discharge, however chest pain and associated symptoms are concerning enough for transfer to the medical floor. Pt was seen by consult service for Ronnie who recommended transfer to the medical floor to better evaluate the cause of the patient's chest pain and monitor cardiac enzymes. Pt is discharged from [address] [place] [address] and will remain in care of the hospitalist service with our consult available as needed. Laboratory Refer to printed laboratory reports Test 10/27/17 11:40 10/27/17 15:50 10/27/17 15:51 10/27/17 17:14 White Blood Count 9.01 Red Blood Count 4.86 Hemoglobin 14.0 Hematocrit 41.3 Mean Corpuscular Volume 85.0 Mean Corpuscular Hemoglobin 28.8 Mean Corpuscular Hemoglobin Concent 33.9 Platelet Count 287 Mean Platelet Volume 9.1 Neutrophils (%) (Auto) 71.9 Lymphocytes (%) (Auto) 18.3 Monocytes (%) (Auto) 6.8 Eosinophils (%) (Auto) 2.0 Basophils (%) (Auto) 0.6 Neutrophils # (Auto) 6.48 Lymphocytes # (Auto) 1.65 Monocytes # (Auto) 0.61 Eosinophils # (Auto) 0.18 Basophils # (Auto) 0.05 RDW Standard Deviation 41.8 RDW Coefficient of Variation 13.4 Immature Granulocyte % (Auto) 0.4 Immature Granulocyte # (Auto) 0.04 Prothrombin Time 10.6 Prothrombin Time INR 1.0 PTT 27.9 Partial Thromboplastin Ratio 1.1 Sodium Level 137 Potassium Level 4.4 Chloride Level 106 Carbon Dioxide Level 24 Anion Gap 7.0 Blood Urea Nitrogen 18 Creatinine 0.78 Est Creatinine Clear Calc Drug Dose 180.8 Estimated GFR () 128.1 Estimated GFR (Non- 110.6 BUN/Creatinine Ratio 22.6 Random Glucose 165 Calcium Level 9.0 Total Bilirubin 0.4 Direct Bilirubin < 0.1 Aspartate Amino Transferase (AST) 20 Alanine Aminotransferase (ALT) 39 Alkaline Phosphatase 63 Troponin I < 0.015 < 0.015 Pro-B-Type Natriuretic Peptide 28 Total Protein 7.7 Albumin 3.6 Lipase 197 Urine Color YELLOW Urine Appearance CLEAR Urine pH 5.0 Urine Specific [place] > 1.045 Urine Protein NEG Urine Glucose (UA) NEG Urine Ketones NEG Urine Occult Blood NEG Urine Nitrite NEG Urine Bilirubin NEG Urine Urobilinogen NEG Urine Leukocyte Esterase NEG Urine WBC (Auto) 1-5 Urine RBC (Auto) 0-4 Urine Hyaline Casts (Auto) 0 Urine Epithelial Cells (Auto) 10-20 Urine Bacteria (Auto) NEG Urine Opiates Screen POS Urine Codeine Confirmation (GC/MS) Pending Urine Morphine Confirm (GC/MS) Pending Urine Hydrocodone Confirm (GC/MS) Pending Urine Norhydrocodone Pending Urine Noroxycodone Pending Urine Oxycodone Confirm (GC/MS) Pending Urine Oxymorphone Confirm (GC/MS) Pending Urine Methadone, Qualitative NEG Urine Hydromorphone Confirm (GC/MS) Pending Urine Barbiturates NEG Urine Phencyclidine (PCP) Level NEG Ur Amphetamine/Methamphetamine NEG MDMA (Ecstasy) Screen NEG Urine Benzodiazepines Screen NEG Urine Cocaine Metabolite NEG Urine Marijuana (THC) NEG Ethyl Alcohol mg/dL < 3.0 Thyroid Stimulating Hormone (TSH) 0.767 Salicylates Level < 1.7 Acetaminophen Level < 2 Test 10/30/17 08:49 10/30/17 12:11 POC Glucose 135 71 Total Time Total Time Spent (min): Greater than 30 minutes Tobacco Cessation at Discharge Smoking Status: Current Every Day Smoker (1 pack per day) FDA approved Prescription: declined med & out pt counseling Problem Qualifiers (1) Depression: Depression Type: major depressive disorder Major depression recurrence: recurrent Active/Remission status: currently active Major depression episode severity: mild Qualified Codes: F33.0 - Major depressive disorder, recurrent , mild (2) Chest pain: Chest pain type: unspecified Qualified Codes: R07.9 - Chest pain, unspecified
[2017-10-30 15:31] LABS: BASO % 0.8 %; BASO ABS # 0.06 K/uL (0-0.2); EOS % 4.8 %; EOS ABS # 0.36 K/uL (0-0.5); HEMATOCRIT 38.6 % (42-52); HEMOGLOBIN 13.2 g/dL (14.0-18.0); IG# 0.04 K/uL (0.00-0.02); LYMPH % 32.3 %; LYMPH ABS # 2.41 K/uL (1.2-3.4); MEAN CELL VOLUME 84.1 fL (80-100); MEAN CORPUSCULAR HEMOGLOBIN 28.8 pg (25-34); MEAN CORPUSCULAR HGB CONC 34.2 g/dl (32-36); MEAN PLATELET VOLUME 8.7 fL (7.4-10.4); MONO % 8.4 %; MONO ABS # 0.63 K/uL (0.11-0.59); NEUT % 53.2 %; NEUT ABS # 3.96 K/uL (1.4-6.5); PLATELET COUNT 247 K/uL (130-400); RED CELL DISTRIBUTION WIDTH CV 13.5 % (11.5-14.5); RED CELL DISTRIBUTION WIDTH SD 40.8 fL (36.4-46.3); WHITE BLOOD COUNT 7.46 K/uL (4.8-10.8)
[2017-10-30] MEDS ORDERED: LPT/40 PO ×2 (15:31)
[2017-10-30 15:49] LABS: ALBUMIN 3.5 gm/dl (3.4-5.0); ALT/SGPT 40 U/L (12-78); BLOOD UREA NITROGEN 15 mg/dl (7-18); CALCIUM 8.6 mg/dl (8.5-10.1); CARBON DIOXIDE 27 mmol/L (21-32); CREATININE 0.98 mg/dl (0.60-1.40); GLUCOSE 110 mg/dl (70-99); POTASSIUM 3.9 mmol/L (3.5-5.1); SODIUM 137 mmol/L (136-145)
[2017-10-30 15:54] LABS: ALKALINE PHOSPHATASE 60 U/L (45-117); AST/SGOT 16 U/L (15-37); CKMB 2.8 ng/ml (0.5-3.6); TOTAL PROTEIN 7.2 gm/dl (6.4-8.2)
[2017-11-01] MEDS ORDERED: TPRSR25 PO ×2 (16:06)
[2017-11-01] MEDS ORDERED: XRL15 PO ×2 (16:06)
== END 2017-10-30 14:43 | disposition admitted as inpatient to this hospital (09) | DRG 885 ==
LOC: EDBD 11:31 → C.EDC 11:32 → ENRESERV 18:48 → CANRESERV 18:48 → CANBEDREQ 18:50 → C.MHU 21:01 → ENRESERV 21:45
PROVIDERS: ADMIT Psychiatry & Neurology Psychiatry; ATTEND Psychiatry & Neurology Psychiatry
DX: F33.0 Major depressive disorder, recurrent, mild (principal); L03.116 Cellulitis of left lower limb; F70 Mild intellectual disabilities; Z76.5 Malingerer [conscious simulation]; R07.89 Other chest pain; E11.42 Type 2 diabetes mellitus with diabetic polyneuropathy; E11.43 Type 2 diabetes mellitus with diabetic autonomic (poly)neuropathy; I10 Essential (primary) hypertension; E78.5 Hyperlipidemia, unspecified; F17.210 Nicotine dependence, cigarettes, uncomplicated; E66.9 Obesity, unspecified; Z68.37 Body mass index [BMI] 37.0-37.9, adult; Z86.718 Personal history of other venous thrombosis and embolism; Z79.01 Long term (current) use of anticoagulants; Z79.4 Long term (current) use of insulin; Z79.82 Long term (current) use of aspirin; Z79.899 Other long term (current) drug therapy; Z83.49 Family history of other endocrine, nutritional and metabolic diseases; Z82.5 Family history of asthma and other chronic lower respiratory diseases

== ENCOUNTER 2017-10-30 14:43 | Observation (INO) | payer OTHER ==
[~2017-10-30] VITALS: Ht 190.5 cm; Wt 130.0 kg
[2017-10-30 14:58] VITALS: BP 144/84; PULSE 104; TEMP 36.8; O2SAT 95; Ht 190.5 cm; Wt 130.0 kg
[2017-10-30] MEDS ORDERED: ONDANSETRON INJ 2 MG/ML 2 ML VIAL IV PRN (15:15)
[2017-10-30] MEDS ORDERED: MoRPHine SULFATE 2 MG/ML CARP IV PRN (15:15)
[2017-10-30] MEDS ORDERED: NITROGLYCERIN 0.4 MG SL PER TAB CHARGE SL PRN (15:15)
[2017-10-30] MEDS ORDERED: POLYETHYLENE (MIRALAX) 17 GM PACK PO PRN (15:15)
[2017-10-30] MEDS ORDERED: PHARMACY GLYCEMIC MGMT CONSULT PRN (15:30)
[2017-10-30] MEDS ORDERED: DEXTROSE 50% 50 ML SYR IV PRN ×2 (15:30→15:45)
[2017-10-30] MEDS ORDERED: GLUCOSE 40% GEL 15 GM TUBE PO PRN ×2 (15:30→15:45)
[2017-10-30] MEDS ORDERED: GLUCOSE 10 TABS/TUBE PO PRN ×2 (15:30→15:45)
[2017-10-30] MEDS ORDERED: GLUCAGON FOR INJ 1 MG VIAL SQ PRN ×2 (15:30→15:45)
[2017-10-30] MEDS ORDERED: LPT/40 PO ×2 (15:31)
[2017-10-30] MEDS ORDERED: TRAMADOL HCL 50 MG TAB PO PRN (15:45)
[2017-10-30] MEDS ORDERED: RIVAROXABAN TAB 15 MG TAB PO STA (15:48)
--- NOTE | 2017-10-30 15:56 | DIAGNOSTIC IMAGING REPORT ---
CHEST ONE VIEW PORTABLE CLINICAL HISTORY: reoccurring chest pain that began this morning dyspnea. Chest pain. COMPARISON STUDY: 10/27/2012 FINDINGS: The bones soft tissues and hemidiaphragms are normal. The cardiomediastinal silhouette is normal. The lungs are clear. The pulmonary vasculature is normal. IMPRESSION: Negative chest. The above report was generated using voice recognition software. It may contain grammatical, syntax or spelling errors. Electronically signed by: Colt Sousa M.D. 10/30/2017 3:54 PM Dictated Date/Time: 10/30/2017 3:54 PM
[2017-10-30] MEDS ORDERED: IV FLUIDS COMPLETED PRN (16:15)
[2017-10-30] MEDS ORDERED: INSULIN ASPART 100 UNITS/ML 3 ML PEN SC SCH (16:15)
[2017-10-30] MEDS ORDERED: RIVAROXABAN 20 MG TAB PO SCH (16:45)
[2017-10-30] MEDS: INSULIN ASPART 100 UNITS/ML 3 ML PEN SC SCH ×2 (17:18→20:35)
--- NOTE | 2017-10-30 18:15 | History and Physical ---
History & Physical Date & Time of Service: Oct 30, 2017 at 15:38 Chief Complaint: Recurrent Chest Pain Primary Care Physician: Velasquez Valencia M.D. History of Present Illness Source: patient, clinic records, hospital records 41 yo M with no known cardiac disease, uncontrolled diabetes, recently diagnosed DVT in Sep 2017 and depression presented via EMS to the ER on 10/27 with reports of chest pain that began while he was riding a scooter in the local grocery store. With recent h/o blood clot, description of pleuritic chest pain and tachycardia, a CTA of the chest was performed revealing no PE. All other workup for acute ischemia including serial cardiac enzymes and EKG was normal and he was set to be discharged home. He then reported suicidal ideations and was sent to voluntarily for inpatient behavioral health treatment. He was doing well until today (10/30) when he began to get a recurrence of the same pain he initially described in the ER. This occurred during a group therapy session and he admits that he was not stressed by the topic of conversation. He described a L anterior chest wall pain that radiated down his L arm. He denies any shortness of breath, diaphoresis, or other associated symptoms with his chest pain. The pain is not provoked by food or exertion and is not alleviated by anything either. En route to the hospital on 10/27 he was given ASA and nitro which was not successful in controlling his pain and he reports neither was the morphine he was given in the ER. The pain is a constantly recurring issue for him that has been ongoing now for over a year. Per the records he has had a DSE 06/[address] Salvador and then was also recently seen by him as an inpatient in the last couple of weeks. He has had multiple resting TTEs in the past few months that are all consistent and do not reveal acute wall motion abnormalities. His risk factors for CAD include uncontrolled diabetes (A1c 9.2 08/03), active smoking, hyperlipidemia, inactive lifestyle, and early family history of [place] (father at 55 yo). He was given ASA 325 and was transferred to telemetry for further workup and monitoring. An EKG and CXR was ordered. ROS reveals no other symptoms aside from some persistent chronic L foot pain that is intermittent. Past Medical/Surgical History Medical Problems: (1) Depression Status: Chronic (3) Diabetes mellitus with neurological manifestation Permanent Comment: Diabetic neuropathy reported in hands and feet Status: Chronic (4) DM type 2 (diabetes mellitus, type 2) Status: Chronic (5) Foot abscess Permanent Comment: s/p I&D Aug 2017 Status: Resolved (6) Gastroparesis Status: Chronic (7) HTN (hypertension) Status: Chronic (8) IBS (irritable bowel syndrome) Status: Chronic (9) Nicotine dependence Status: Chronic (10) Thrombosis of left lower extremity Permanent Comment: Diagnosed Sep 2017 Status: Chronic Surgical Problems: (1) S/P left knee arthroscopy Status: Chronic (2) S/P tonsillectomy Status: Chronic (3) Status post incision and drainage Status: Chronic Family History Cancer Diabetes mellitus MOTHER GRANDMOTHER UNCLE AUNT Gallbladder disease Heart disease Hypertension MOTHER FATHER Lung disease Social History Smoking Status: Current Some Day Smoker Smokeless Tobacco Use: Unknown Alcohol Use: none Drug Use: none Marital Status: Housing status: lives alone Immunizations History of Influenza Vaccine: Yes Influenza Vaccine Date: Jul 24, 2016 History of Tetanus Vaccine?: Unknown History of Pneumococcal: Yes Pneumococcal Date: Feb 09, 2006 History of Hepatitis B Vaccine: No Multi-Drug Resistant Organisms History of MDRO: No Allergies Coded Allergies: Cephalosporins (Verified Allergy, Unknown, CECLOR- RXN UNKNOWN. A CHILD. WILLING TO TRY CEPHS AGAIN, 10/27/17) NSAIDs (Verified Adverse Reaction, Unknown, gastroparesis, kidney problems , 10/27/17) Home Medications Scheduled Aripiprazole (Aripiprazole), 10 MG PO HS Aspirin (Aspirin Ec), 81 MG PO DAILY Atorvastatin (Lipitor), 40 MG PO DAILY Doxycycline Hyclate (Doxycycline Hyclate), 100 MG PO BID Duloxetine HCl (Duloxetine HCl), 60 MG PO DAILY Gabapentin (Gabapentin), 400 MG PO TID Gabapentin (Gabapentin), 600 MG PO TID Insulin Aspart (Novolog Flexpen), 28 UNITS SQ AC Insulin Glargine (Lantus Solostar), 50 UNITS SQ BID Lisinopril (Lisinopril), 10 MG PO DAILY Pantoprazole (Protonix), 40 MG PO DAILY Rivaroxaban (Xarelto Starter Pack 15 & 20 mg), 15 MG PO UD Scheduled PRN Nicotine Polacrilex (Nicorelief), 1 PIECE PO UD PRN for Nicotine Craving Polyethylene Glycol 3350 (Miralax), 17 GM PO DAILY PRN for Constipation Tramadol (Ultram), 50 MG PO Q6H PRN for Pain Review of Systems AT least ten systems were reviewed and negative except as indicated in HPI above. Physical Exam Vital Signs Date Time Temp Pulse Resp B/P (MAP) Pulse Ox O2 Delivery O2 Flow Rate FiO2 10/30/17 14:58 36.8 104 16 144/84 95 Room Air General Appearance: WD/WN, no apparent distress, + pertinent finding (pt was walking around and eating food with no issues while reporting active chest pain , no respiratory distress noted.) Head: normocephalic, atraumatic Eyes: normal inspection, sclerae normal ENT: hearing grossly normal Neck: trachea midline Respiratory/Chest: lungs clear, normal breath sounds, no respiratory distress, no accessory muscle use, + pertinent finding (chest wall very TTP on L anterior and along posterior upper L back around scapula/thoracic paraspinal region.) Cardiovascular: no edema, no gallop, no JVD, no murmur, normal peripheral pulses, + tachycardia Abdomen/GI: normal bowel sounds, non tender, soft Back: normal inspection Extremities/Musculoskelatal: normal inspection, no calf tenderness, no pedal edema, normal range of motion Neurologic/Psych: no motor/sensory deficits, alert, normal mood/affect, oriented x 3 Skin: warm/dry, + pertinent finding (L foot has a dusky reddish color that he reports is unchanged since after his treatment for cellulitis, there is no drainage from wounds in his foot which are well-healed.) Diagnostics Laboratory Results CBC w diff: normal (10/30) CMP: normal (10/30) Cardiac enzymes: normal x 1 (10/30) Diagnostic Radiology CHEST ONE VIEW PORTABLE CLINICAL HISTORY: reoccurring chest pain that began this morning dyspnea. Chest pain. COMPARISON STUDY: 10/27/2012 FINDINGS: The bones soft tissues and hemidiaphragms are normal. The cardiomediastinal silhouette is normal. The lungs are clear. The pulmonary vasculature is normal. IMPRESSION: Negative chest. EKG ST 114, incomplete RBBB, no ST changes consistent with ischemia. No q waves indicating prior ischemia of concern. Impression Assessment and Plan 41 yoM with no known CAD presents as a transfer from the unit for acute chest pain. 1. Chest pain-risk factors for CAD include sedentary lifestyle, hyperlipidemia on Lipitor, early family history of [place] in father who dies at 55 yrs, active smoking and diabetes which is uncontrolled with a recent A1C 9.2. This pain is described as consistent with his recurring chest pain that he has had for a long time, however, it appears the frequency of this unprovoked pain has increased. While admitted around the new year two weeks ago he underwent cardiology evaluation for chest pain, he then presented 6 days after discharge with reoccurring chest pain and then again with symptoms recurring today. His only risk stratification found in the record was a DSE in Jun 2016 which was lacking a clear interpretation in the record available to me but was presumed negative. With exquisite tenderness to palpation, there is a definite possibility for a MSK component related to patient's low activity level. He denies any recent shoulder or lifting levels of note. He also has a notable EGD for gastritis characterized by erosions and erythema in the gastric antrum found on 04/17/2015. He continues on ASA 81mg and was recently started on Xarelto. After cardiac assessment, I would argue to stop the daily aspirin and continue protonix as another poss cause of his pain may be referred chest pain from the GI tract. Lastly, it should be noted that despite acute DVT, the patient was not continued on his Xarelto for the last 3 days on the mental health unit as it was a non-formulary medication. Despite this, he has had two negative CTAs of the chest that have been consistently negative for PE and is not hypoxic or having any respiratory distress. I reviewed this with Dr. Haresh Mitchell (anticoagulation expert) and we decided to administer 15mg doses now, at midnight tonight and then resume his BID dosing tomorrow through his 21-day window prior to changing to th 20mg daily dosing. It should be noted for psychiatry and other physicians caring for him to consider giving him only on month's supply of blood thinner at a time in setting of recent SI. Overdose on xarelto is extremely dangerous with no active reversal agent. Cardiology was consulted to see him, trending serial cardiac enzymes overnight with the first set negative, ordered serial daily EKGs. Giving scheduled Tylenol punctuated by tramadol to help with the pain in chest. Morphine PRN. Nitro PRN. 2. Depression with recent SI-spoke with his current provider who feels he will be fine without one on one observation at this point. Consulted psych to follow along and assist with dispo prior to discharge. Gabapentin, Cympbalta per home regimen 3. DMII-inpatient numbers at goal over last couple of days. Continuing ISS with carb coverage and reduced glargine BID (from home dose). Repeating A1C in am which was recently 9.2 in Jul 2017. Gabapentin per home regimen for neuropathic pain. 4. DVT-subacute, diagnosed in Sep 2017. Xarelto as above. 5. Tobacco use-Nicoderm patch, counseled not to smoke as this raises risk for [place] and CAD among other things. 6. L foot/toe pain-recent admission and was on a course of doxy as outpatient which is completed. Of note, ID reports during this time were not convinced of an active infection. There is currently no signs of active infection in the foot. Tylenol. DVT proph-Xarelto Full Code Dispo-to telemetry for monitoring overnight. Ultimate dispo depends on Cardiology and Psychiatry assesment and recs. Sunni Canseco DO [facility] Hospitalist. Level of Care Telemetry Advanced Directives Existing Living Will: No Existing Power of Senior Marketing Engineer: No Resuscitation Status FULL RESUSCITATION VTE Prophylaxis VTE Risk Assessment Done? Y/N: Yes Risk Level: High Given or contraindicated: Other Anticoagulation
[2017-10-30 19:51] VITALS: BP 130/79; PULSE 96; TEMP 36.6; O2SAT 96
[2017-10-30 20:35] LABS: CKMB 2.6 ng/ml (0.5-3.6)
[2017-10-30] MEDS: GABAPENTIN 400 MG CAP PO SCH (20:39)
[2017-10-30] MEDS: ARIPIprazole TAB 10 MG TAB PO SCH (20:39)
[2017-10-30] MEDS: GABAPENTIN 600 MG TAB PO SCH (20:39)
[2017-10-30] MEDS ORDERED: INSULIN GLARGINE SOLOSTAR 100 UNITS/ML 3 ML PEN SC SCH ×2 (21:00)
[2017-10-30] MEDS: ACETAMINOPHEN 500 MG TAB PO SCH (22:03)
[2017-10-30 23:30] VITALS: BP 139/80; PULSE 94; TEMP 36.5; O2SAT 94
[2017-10-30] MEDS ORDERED: RIVAROXABAN TAB 15 MG TAB PO SCH (23:59)
[2017-10-31] VITALS (11 sets, daily range): BP systolic 116–149; BP diastolic 74–86; PULSE 83–95; TEMP 36.4–36.8; O2SAT 93–95
[2017-10-31] MEDS: ACETAMINOPHEN 500 MG TAB PO SCH ×3 (05:37→20:48)
[2017-10-31 07:24] LABS: HEMATOCRIT 42.1 % (42-52); HEMOGLOBIN 14.1 g/dL (14.0-18.0); MEAN CELL VOLUME 84.9 fL (80-100); MEAN CORPUSCULAR HEMOGLOBIN 28.4 pg (25-34); MEAN CORPUSCULAR HGB CONC 33.5 g/dl (32-36); MEAN PLATELET VOLUME 8.8 fL (7.4-10.4); PLATELET COUNT 233 K/uL (130-400); RED CELL DISTRIBUTION WIDTH CV 13.5 % (11.5-14.5); RED CELL DISTRIBUTION WIDTH SD 41.1 fL (36.4-46.3); WHITE BLOOD COUNT 6.99 K/uL (4.8-10.8)
[2017-10-31 08:00] LABS: CREATININE 0.73 mg/dl (0.60-1.40); POTASSIUM 3.7 mmol/L (3.5-5.1)
[2017-10-31] MEDS: INSULIN ASPART 100 UNITS/ML 3 ML PEN SC SCH ×4 (08:09→20:36)
[2017-10-31] MEDS: GABAPENTIN 400 MG CAP PO SCH ×3 (08:12→20:47)
[2017-10-31] MEDS: LISINOPRIL 10 MG TAB PO SCH (08:12)
[2017-10-31] MEDS: GABAPENTIN 600 MG TAB PO SCH ×3 (08:13→20:48)
[2017-10-31] MEDS: ATORVASTATIN 20 MG TAB PO SCH (08:13)
[2017-10-31] MEDS: ASPIRIN 81 MG ECTAB PO SCH (08:14)
[2017-10-31] MEDS: DULOXETINE HCL 60 MG CAP PO SCH (08:15)
[2017-10-31] MEDS: PANTOprazole SOD 40 MG TAB PO SCH (08:15)
[2017-10-31] MEDS: RIVAROXABAN TAB 15 MG TAB PO SCH ×2 (08:18→20:48)
[2017-10-31] MEDS: INSULIN GLARGINE SOLOSTAR 100 UNITS/ML 3 ML PEN SC SCH ×2 (08:21→21:13)
--- NOTE | 2017-10-31 11:11 | Pharmacy Progress Note ---
Pharmacy Glycemic Short Note 2 Date of Service Oct 31, 2017. Outpatient Anti-diabetic Regimen: * Lantus 50 units BID * Novolog 28 units AC ASSESSMENT: * 41 yo M admitted to [facility] with chest pain and subsequently transferred to [facility] on 10/30/17. Pharmacy to continue glycemic consult per protocol. * Pt well known to glycemic service from multiple prior admissions * Initial plan was to continue the same SQ basal bolus insulin regimen that worked well for him when he was just admitted about 2 weeks ago. Pharmacy has been titrating dosing daily based on BSG trends. * Patient typically requires less insulin in house as compared to outpatient regimen * patient has received 116 units of insulin over the past 24 hrs * 70 units of basal insulin with Lantus * 46 units of prandial insulin with NovoLog * Changes needed to regimen * Regimen is slightly basal heavy and AM fasting BSG starting to trend down. AM fastings 140 --> 135 --> 118 today. Will decrease basal insulin dose slightly. * Post-prandial BSGs are on the lower side 71, 86, 103 yesterday. CF/CR are adequate and lowering basal dose should cause a slight rise in all BSGs throughout the day. PLAN FOR INPATIENT GLYCEMIC CONTROL: * Basal insulin: decrease dose * Lantus 33 units SQ BID * Bolus insulin : no change * NovoLog per scale ACHS or Q6hrs while NPO * Goal Range: Low 110 mg/dL - High 140 mg/dL * Correction Factor: 15 mg/dL/unit * Nutritional / Prandial insulin per carb ratio of 1 unit per 5 grams CHO consumed
[2017-10-31] MEDS ORDERED: METOPROLOL SUCC 25MG EXT REL TAB PO ONE (11:30)
--- NOTE | 2017-10-31 14:33 | CARDIOLOGY CONSULTATION ---
DATE OF CONSULTATION: 10/31/2017 REFERRING PHYSICIAN: Sunni Canseco DO. INDICATIONS: Atypical chest discomfort. HISTORY OF PRESENT ILLNESS: The patient is a 41-year-old male who carries a history of diabetes mellitus, hyperlipidemia on therapy, familial history of cardiac disease with ongoing difficulties with chronic depression, past history of deep venous thrombosis in September 2017 on chronic anticoagulation. The patient presents now noting persisting complaints of chest discomfort and pain lasting months in duration. Symptoms had generally been quiescent over the last several days, but once again recurred on the day of transfer to the telemetry unit. Symptoms were described as substernal pressure pain with hard and heavy discomfort. Cardiac enzymes and EKGs were initially negative for any signs or symptoms of ischemia. He is referred now for further evaluation. He denies history of rheumatic fever or scarlet fever, does carry a history of possible heart murmur as a child, underwent evaluations for chest pain on multiple occasions in the past including a past stress testing in June 2017 with dobutamine stress echocardiography. Studies have been unrevealing. He has concern given familial history of heart disease in father at a premature age. He notes no fevers, chills or productive cough. Weight has been stable. He notes activities are predominantly limited due to chronic back pain and past cellulitis. He uses a scooter when shopping in malls and walking with limitations secondary to such. Denies headache or visual changes, rash, arthritic complaint. He is being evaluated by the psychiatry due to underlying depressive issues and past suicidal ideation. He does note heart rates tend to run fast while on all evaluations. ALLERGIES: CEPHALOSPORIN AND NONSTEROIDALS. MEDICATIONS: Per list are aripiprazole 10 mg at bedtime, aspirin 81 mg per day, atorvastatin 40 mg p.o. every day, doxycycline 100 mg b.i.d., 60 mg p.o. every day, gabapentin 400 t.i.d. and 600 t.i.d., insulin subcutaneously, lisinopril 10 mg every day, Protonix 40 mg p.o. every day, rivaroxaban, Ultram, and MiraLax. PAST SURGICAL HISTORY: Notable for prior left knee arthroscopic surgery and tonsillectomy. FAMILY HISTORY: Positive for heart disease in father in his 50s. SOCIAL HISTORY: The patient is an occasional tobacco user. Uses no significant alcoholic beverages. PHYSICAL EXAMINATION: GENERAL: The patient is an obese, age-appropriate male in no acute distress. VITAL SIGNS: Heart rates 90-100, blood pressure is 134/83, O2 saturations are 95% on room air. HEENT: Normocephalic and atraumatic. Nares without discharge. Throat was clear. NECK: Supple without thyromegaly, lymphadenopathy, or JVD. There are no carotid bruits. LUNGS: Reveal mildly diminished breath sounds, but are clear. CARDIOVASCULAR: Regular with normal S1 and S2. There is no murmur, gallop or rub. ABDOMEN: Obese, soft, nontender. There is no palpable hepatosplenomegaly. There is no hepatojugular reflux. EXTREMITIES: Without cyanosis or clubbing. There is no peripheral edema. There is chronic stasis changes present. DATA: EKG reveals sinus rhythm at a rate of 85 with normal tracing. Telemetry reveals no tachyarrhythmias. White cell count 6.9, hemoglobin is 14.1, hemoglobin A1c was elevated in the past. Troponins are negative x2. Lipids reveal a cholesterol of 131, LDL of 60, and an HDL of 38. IMPRESSION: A 41-year-old male with cardiac risk factors of family history of diabetes mellitus, hyperlipidemia, persistent symptoms of chest pain and chest discomfort. Symptoms had variable severity. He presented to this admission with hard and heavy pain in the mid epigastric area. Enzymes and EKGs unrevealing for ischemia. Discussed findings in detail with the patient given complaints of chronic tachycardia. I suspect this may aggravate issues. We will begin on low-dose beta ryan, though will need to be followed closely for worsening underlying depression issues. The patient will be referred for dobutamine stress echocardiography given inability to walk with plans to perform a procedure in a.m. He is agreeable to plan. Current symptoms are very atypical, though risk factors have been noted and recurrent symptoms or complaints and persistent reevaluation for symptoms ordered. The patient is agreeable to plan. [facility]
--- NOTE | 2017-10-31 19:27 | Psychiatric Consultation ---
Psychiatric Consultation Date of Service: Oct 31, 2017 Identifying Data Bry Akhtar is a 41-year-old male who lives in [place], has a history of depression, intellectual disability, DVT, diabetes, and hypertension, and was admitted voluntarily on Oct 27, 2017 at 21:01 after he presented to the emergency room via EMS for chest pain. In the emergency room, he endorsed suicidal ideation with a plan to overdose on his prescription medications. He was transferred to medicine yesterday for cardiac monitoring. Chief Complaint "Okay". History of Present Illness Per admit note: The patient is well-known to us from multiple previous psychiatric and medical admissions, most recently on our unit for 2 separate admissions in June 2017. At that time, he voiced suicidal thoughts after he was informed he was not accepted to [facility]. His aripiprazole was decreased to 10 mg daily as he reported muscle twitching, and he was cross tapered from venlafaxine XR to duloxetine. He was discharged to follow-up with his therapist and psychiatrist at [facility], but has since switched his care to [facility]. In the interim, he has had numerous ER visits and for medical admissions for left sided numbness, left foot cellulitis, and chest pain. He frequently presents to the emergency room, and has had 21 visits in the past 6 months. He is now on duloxetine 60 mg daily and aripiprazole 10 mg daily at bedtime. Yesterday, he presented to the emergency room via EMS with a chief complaint of chest pain, that occurred while he was at the grocery store. He had received nitroglycerin and aspirin in route to the hospital with no relief. He reported left-sided chest pain radiating to his left shoulder and arm, tingling in feet, shortness of breath, and felt hot. He had recently been started on Xarelto for DVT. On exam, he was tachycardic to 122 bpm but in no acute distress and blood pressure was elevated. Chest x-ray showed no acute abnormalities and chest/thorax CTA was negative. EKG showed sinus tachycardia but no ischemic changes. He had an echo on October 19 which showed some tachycardia but no wall motion abnormality and a fairly normal EF. Troponins 2 were negative. His drug screen was positive for opiates. He is not prescribed opiates as an outpatient and denies illicit substance abuse, but was given morphine 10mg and [place] 5/325mg in the ER at 13:59, and UDS was not obtained until 15:50. On the unit, he was cooperative and tolerating medications. He denied SI but expressed anxiety related to his health. 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 Aceves at [facility], Dr. Caballero years ago) Prior Psych Hospitalizations: [facility] (many-1997, 2001, 2002 , and 2 admissions in June 2017), other Access to a Gun: No Suicide Attempts: No (reports he had a bottle of pills in his hand in March 2017 and was thinking of overdosing on them, but did not take any.) Past Medication Trials Included but not limited to: Venlafaxine XR - cross tapered to duloxetine in June 2017 to try to better control chronic pain Mirtazapine Braxton - toxicity Quetiapine Depakote - started during 1997 [facility] admission for IED Bupropion SR - started during 2001 hospitalization for depression Trazodone - started during 2001 admission for sleep Additional Notes Previous diagnoses include intellectual disability (mild MR per 1997 records, and 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 Olivares Allergies Allergies: Coded Allergies: Cephalosporins (Verified Allergy, Unknown, CECLOR- RXN UNKNOWN. A CHILD. WILLING TO TRY CEPHS AGAIN, 10/27/17) NSAIDs (Verified Adverse Reaction, Unknown, gastroparesis, kidney problems , 10/27/17) Current Inpatient Medications Medications (Trade) Dose Ordered Sig/Mario Alberto Route Start Time Stop Time Status Last Admin Dose Admin Ondansetron HCl (Zofran Inj) 4 mg Q6H PRN IV 10/30/17 15:15 11/29/17 15:14 Nitroglycerin (Nitrostat Tab) 0.4 mg UD PRN SL 10/30/17 15:15 11/29/17 15:14 Morphine Sulfate (MoRPHine SULFATE INJ) 4 mg Q2H PRN IV 10/30/17 15:15 11/13/17 15:14 10/30/17 15:49 4 MG Polyethylene (Miralax Powder Packet) 17 gm DAILY PRN PO 10/30/17 15:15 11/29/17 15:14 10/31/17 08:17 17 GM Miscellaneous Information (Consult Glycemic Management Pharmacy) 1 ea UD PRN N/A 10/30/17 15:30 11/29/17 15:29 Insulin Aspart (novoLOG ASPART) SLIDING SCALE ACHS SC 10/30/17 16:15 11/29/17 16:14 10/31/17 17:15 15 UNITS Glucose (Glucose 40% Gel) 15-30 GRAMS 15 GRAMS... UD PRN PO 10/30/17 15:30 11/29/17 15:29 Glucose (Glucose Chew Tab) 4-8 Tablets 4 Tabl... UD PRN PO 10/30/17 15:30 11/29/17 15:29 Dextrose (Dextrose 50% 50ML Syringe) 25-50ML OF 50% DW IV FOR... UD PRN IV 10/30/17 15:30 11/29/17 15:29 Glucagon (Glucagon Inj) 1 mg UD PRN SQ 10/30/17 15:30 11/29/17 15:29 Aripiprazole (Abilify Tab) 10 mg HS PO 10/30/17 21:00 11/29/17 20:59 10/30/17 20:39 10 MG Aspirin (Ecotrin Tab) 81 mg DAILY PO 10/31/17 09:00 11/30/17 08:59 10/31/17 08:14 81 MG Atorvastatin Calcium (Lipitor Tab) 40 mg DAILY PO 10/31/17 09:00 11/30/17 08:59 10/31/17 08:13 40 MG Duloxetine HCl (Cymbalta Cap) 60 mg DAILY PO 10/31/17 09:00 11/30/17 08:59 10/31/17 08:15 60 MG Gabapentin (Neurontin Cap) 400 mg TID PO 10/30/17 21:00 11/29/17 20:59 10/31/17 13:36 400 MG Gabapentin (Neurontin Tab) 600 mg TID PO 10/30/17 21:00 11/29/17 20:59 10/31/17 13:36 600 MG Lisinopril (Zestril Tab) 10 mg DAILY PO 10/31/17 09:00 11/30/17 08:59 10/31/17 08:12 10 MG Pantoprazole Sodium (Protonix Tab) 40 mg DAILY PO 10/31/17 09:00 11/30/17 08:59 10/31/17 08:15 40 MG Tramadol HCl (Ultram Tab) 50 mg Q6H PRN PO 10/30/17 15:45 11/29/17 15:44 10/30/17 19:07 50 MG Acetaminophen (Tylenol Tab) 1,000 mg Q8 PO 10/30/17 22:00 11/01/17 21:59 10/31/17 13:36 1,000 MG Rivaroxaban (Xarelto Tab) 15 mg BID PO 10/31/17 09:00 11/20/17 21:01 10/31/17 08:18 15 MG Miscellaneous (Iv Fluids Completed) 1 ea PRN PRN N/A 10/30/17 16:15 10/30/18 16:14 Insulin Glargine (Lantus Solostar Pen) 33 units BID SC 10/31/17 09:00 11/30/17 08:59 10/31/17 08:21 33 UNITS Metoprolol Succinate (Toprol Xl Tab) 12.5 mg QAM PO 11/01/17 09:00 12/01/17 08:59 Family History Cancer Diabetes mellitus MOTHER GRANDMOTHER UNCLE AUNT Gallbladder disease Heart disease Hypertension MOTHER FATHER Lung disease History of Suicide: No History of Substance Abuse: Yes (paternal uncle alcoholic) Psychiatric History: Yes (Brother with unclear psychiatric problems, uncle "in a state institution," nephew with ADHD) Alcohol Use Alcohol Use In Past 12 Months: No AUDIT Total Score: 0 Smoking Use Smoking Status: Current Every Day Smoker (1 pack per day) Substance History Denies current illicit drug use, but used cannabis in his 20s, and PCP or marijuana at age 4 when an older cousin gave it to him. Personal History Lives in: [place] in [facility] with mother, sister lives next door with her family Childhood: 2 younger siblings Education: graduated from high school (was in special ed, has some credits from [employer] school) Work History: Unemployed, has applied for disability, and is appealing after denial. 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 Relationship History: ( in June 2016 from leukemia) Children: none Spiritual Affiliation: "I believe in God and Danny" Legal History: none Psychological Trauma History: Denies Hx Traumatic Event, Other (denies abuse) Review of Systems 10 systems reviewed, negative except as stated above. He has had recent chest pain which is persisting on MSE he is alert and cooperative, speech is less spontaneous than his baseline with constricted affect. He denies SI/HI/peralta. Thoughts are concrete but organized. IMP: MDD Plan: patient is stable on his current meds and all aftercare was in place, readiness for discharge was imminent when reexperienced chest pain and was transferred to floor. His main concern is case management related in that he'd like [facility] transport to his follow up appointments. In short, he no longer meets criteria for inpatient mental health, no further med changes are planned as he is accepting of his current regimen. He understands this recommendation and states that he will "see how he feels" after his stress echo tomorrow depending on results. Liaison updated.
--- NOTE | 2017-10-31 20:08 | Progress Note ---
Medicine Progress Note Date & Time of Visit: Oct 31, 2017 at 16:30 . Subjective CC: Follow-up visit for chest pain and other problems. HPI: Intermittent chest pressure throughout the day. No SOB. No cough. No nausea / vomiting. ROS: General- no fever, no chills Resp- as noted above in HPI Cardiac- as noted above in HPI GI- no nausea, no vomiting, no diarrhea - no dysuria, no difficulty voiding . Objective Last 8 Hrs Date Time Temp Pulse Resp B/P (MAP) Pulse Ox O2 Delivery O2 Flow Rate FiO2 10/31/17 15:13 36.4 95 19 137/86 (103) 93 Room Air 10/31/17 15:06 95 Room Air 10/31/17 11:27 95 Room Air Physical Exam: General- lying in bed, no distress Lungs- clear Cardiovascular- RRR, no gallop; no JVD; trace pretibial edema Abdomen- + BS, soft, nontender Extremities- no cyanosis; no calf tenderness Neuro- alert Skin- warm & dry . Laboratory Results: Last 24 Hours Test 10/30/17 19:59 10/30/17 20:30 10/31/17 01:59 10/31/17 06:53 Total Creatine Kinase 185 U/L 179 U/L Creatine Kinase MB 2.6 ng/ml 3.0 ng/ml Creatine Kinase MB Ratio 1.4 1.7 Troponin I < 0.015 ng/ml < 0.015 ng/ml Bedside Glucose 103 mg/dl White Blood Count 6.99 K/uL Red Blood Count 4.96 M/uL Hemoglobin 14.1 g/dL Hematocrit 42.1 % Mean Corpuscular Volume 84.9 fL Mean Corpuscular Hemoglobin 28.4 pg Mean Corpuscular Hemoglobin Concent 33.5 g/dl RDW Standard Deviation 41.1 fL RDW Coefficient of Variation 13.5 % Platelet Count 233 K/uL Mean Platelet Volume 8.8 fL Sodium Level 138 mmol/L Potassium Level 3.7 mmol/L Chloride Level 103 mmol/L Carbon Dioxide Level 27 mmol/L Anion Gap 8.0 mmol/L Blood Urea Nitrogen 15 mg/dl Creatinine 0.73 mg/dl Est Creatinine Clear Calc Drug Dose 186.3 ml/min Estimated GFR () 131.7 Estimated GFR (Non- 113.6 BUN/Creatinine Ratio 20.2 Random Glucose 116 mg/dl Calcium Level 9.0 mg/dl Triglycerides Level 166 mg/dl Cholesterol Level 131 mg/dl HDL Cholesterol 38 mg/dl LDL Cholesterol, Calculated 60 mg/dl VLDL Cholesterol, Calculated 33 mg/dl Cholesterol/HDL Ratio 3.4 Test 10/31/17 07:10 10/31/17 11:29 10/31/17 16:10 Bedside Glucose 118 mg/dl 142 mg/dl 133 mg/dl Other Studies: EKG performed at 06:25 reviewed and demonstrated NSR at 85 / minute, no acute changes. . Assessment & Plan CHEST PAIN Atypical chest pain. Serum troponins negative x 3. CTA chest 10/27/17 negative for pulmonary embolism. Multiple risk factors for ischemic heart disease. Seen in consultation by Cardiology. Dobutamine stress echo recommended. HYPERTENSION Metoprolol succinate initiated. Continue lisinopril. DM TYPE 2 Continue Lantus. Add NovoLog as needed. DYSLIPIDEMIA Continue atorvastatin. DEPRESSION Continue aripiprazole and duloxetine. DIABETIC NEUROPATHY Continue gabapentin. FOOT ABSCESS / CELLULITIS Afebrile. Continue doxycycline. RECENT DVT LLE / VTE PROPHYLAXIS Continue rivaroxaban. Ambulate. DISPOSITION Expected discharge to home. Family Medicine follow-up with Dr. Valencia. Psychiatry follow-up with Dr. Lisandra Porter 11/10/17 at 8:00. . Current Inpatient Medications: Current Inpatient Medications Medications (Trade) Dose Ordered Sig/Mario Alberto Route Start Time Stop Time Status Last Admin Dose Admin Ondansetron HCl (Zofran Inj) 4 mg Q6H PRN IV 10/30/17 15:15 11/29/17 15:14 Nitroglycerin (Nitrostat Tab) 0.4 mg UD PRN SL 10/30/17 15:15 11/29/17 15:14 Morphine Sulfate (MoRPHine SULFATE INJ) 4 mg Q2H PRN IV 10/30/17 15:15 11/13/17 15:14 10/30/17 15:49 4 MG Polyethylene (Miralax Powder Packet) 17 gm DAILY PRN PO 10/30/17 15:15 11/29/17 15:14 10/31/17 08:17 17 GM Miscellaneous Information (Consult Glycemic Management Pharmacy) 1 ea UD PRN N/A 10/30/17 15:30 11/29/17 15:29 Insulin Aspart (novoLOG ASPART) SLIDING SCALE ACHS SC 10/30/17 16:15 11/29/17 16:14 10/31/17 17:15 15 UNITS Glucose (Glucose 40% Gel) 15-30 GRAMS 15 GRAMS... UD PRN PO 10/30/17 15:30 11/29/17 15:29 Glucose (Glucose Chew Tab) 4-8 Tablets 4 Tabl... UD PRN PO 10/30/17 15:30 11/29/17 15:29 Dextrose (Dextrose 50% 50ML Syringe) 25-50ML OF 50% DW IV FOR... UD PRN IV 10/30/17 15:30 11/29/17 15:29 Glucagon (Glucagon Inj) 1 mg UD PRN SQ 10/30/17 15:30 11/29/17 15:29 Aripiprazole (Abilify Tab) 10 mg HS PO 10/30/17 21:00 11/29/17 20:59 10/30/17 20:39 10 MG Aspirin (Ecotrin Tab) 81 mg DAILY PO 10/31/17 09:00 11/30/17 08:59 10/31/17 08:14 81 MG Atorvastatin Calcium (Lipitor Tab) 40 mg DAILY PO 10/31/17 09:00 11/30/17 08:59 10/31/17 08:13 40 MG Duloxetine HCl (Cymbalta Cap) 60 mg DAILY PO 10/31/17 09:00 11/30/17 08:59 10/31/17 08:15 60 MG Gabapentin (Neurontin Cap) 400 mg TID PO 10/30/17 21:00 11/29/17 20:59 10/31/17 13:36 400 MG Gabapentin (Neurontin Tab) 600 mg TID PO 10/30/17 21:00 11/29/17 20:59 10/31/17 13:36 600 MG Lisinopril (Zestril Tab) 10 mg DAILY PO 10/31/17 09:00 11/30/17 08:59 10/31/17 08:12 10 MG Pantoprazole Sodium (Protonix Tab) 40 mg DAILY PO 10/31/17 09:00 11/30/17 08:59 10/31/17 08:15 40 MG Tramadol HCl (Ultram Tab) 50 mg Q6H PRN PO 10/30/17 15:45 11/29/17 15:44 1/13/18 19:07 50 MG Acetaminophen (Tylenol Tab) 1,000 mg Q8 PO 10/30/17 22:00 11/01/17 21:59 10/31/17 13:36 1,000 MG Rivaroxaban (Xarelto Tab) 15 mg BID PO 10/31/17 09:00 11/20/17 21:01 10/31/17 08:18 15 MG Miscellaneous (Iv Fluids Completed) 1 ea PRN PRN N/A 10/30/17 16:15 10/30/18 16:14 Insulin Glargine (Lantus Solostar Pen) 33 units BID SC 10/31/17 09:00 11/30/17 08:59 10/31/17 08:21 33 UNITS Metoprolol Succinate (Toprol Xl Tab) 12.5 mg QAM PO 11/01/17 09:00 12/01/17 08:59
[2017-10-31] MEDS: ARIPIprazole TAB 10 MG TAB PO SCH (20:47)
[2017-11-01 00:02] VITALS: BP 127/85; PULSE 89; TEMP 36.7; O2SAT 95
[2017-11-01 03:38] VITALS: BP 117/73; PULSE 94; TEMP 36.7; O2SAT 90
[2017-11-01] MEDS: ACETAMINOPHEN 500 MG TAB PO SCH ×2 (05:51→13:05)
[2017-11-01 06:58] LABS: HEMOGLOBIN A1C 7.1 % (4.5-5.6)
[2017-11-01] MEDS: INSULIN ASPART 100 UNITS/ML 3 ML PEN SC SCH ×3 (07:00→13:35)
[2017-11-01] MEDS: ATORVASTATIN 20 MG TAB PO SCH (07:39)
[2017-11-01] MEDS: GABAPENTIN 600 MG TAB PO SCH ×2 (07:39→13:06)
[2017-11-01] MEDS: ASPIRIN 81 MG ECTAB PO SCH (07:39)
[2017-11-01] MEDS: RIVAROXABAN TAB 15 MG TAB PO SCH (07:39)
[2017-11-01] MEDS: PANTOprazole SOD 40 MG TAB PO SCH (07:39)
[2017-11-01] MEDS: GABAPENTIN 400 MG CAP PO SCH ×2 (07:39→13:06)
[2017-11-01] MEDS: DULOXETINE HCL 60 MG CAP PO SCH (07:39)
[2017-11-01 07:40] VITALS: BP 135/79; PULSE 91; TEMP 36.5; O2SAT 95
[2017-11-01] MEDS: LISINOPRIL 10 MG TAB PO SCH (07:40)
[2017-11-01] MEDS ORDERED: INSULIN GLARGINE SOLOSTAR 100 UNITS/ML 3 ML PEN SC SCH (08:30)
[2017-11-01] MEDS ORDERED: METOPROLOL SUCC 25MG EXT REL TAB PO SCH (09:00)
--- NOTE | 2017-11-01 10:20 | Pharmacy Progress Note ---
Pharmacy Glycemic Short Note 2 Date of Service Nov 01, 2017. Outpatient Anti-diabetic Regimen: * Lantus 50 units BID * Novolog 28 units AC Item Value Date Time Bedside Glucose 118 mg/dl H 10/31/17 0710 Bedside Glucose 142 mg/dl H 10/31/17 1129 Bedside Glucose 133 mg/dl H 10/31/17 1610 Bedside Glucose 112 mg/dl H 10/31/17 2030 Bedside Glucose 123 mg/dl H 11/01/17 0624 ASSESSMENT: * 41 yo M admitted to [facility] with chest pain and subsequently transferred to the [facility] on 10/30/17 for further evaluation of CP. Pharmacy to continue glycemic consult per protocol. * Pt well known to glycemic service from multiple prior admissions. Pharmacy has been titrating dosing daily based on BSG trends. * Patient typically requires less insulin in house as compared to outpatient regimen * A1c has significantly improved. A1c 9.2% in July 2017 and dropped to 7.1% 10/31/17. This may be d/t frequent extended stays in the hospital with Pharmacy glycemic management. * Patient has been receiving an average of 100-130 units of insulin per day with adequate control. * 66 units of basal insulin with Lantus * 26 units of prandial insulin with NovoLog * Regimen is heavily weighted towards basal insulin but this is because PO intake is low. * Changes needed to regimen * Pt NPO for a stress test this morning. Will decrease AM dose of basal insulin by 20% for one dose only. Resume Lantus 33 units SQ BID this evening when diet is resumed. * Post-prandial BSGs are in range. No changes needed to CF/CR PLAN FOR INPATIENT GLYCEMIC CONTROL: * Basal insulin: decrease dose for NPO this morning and then resume regular dosing this evening. * Lantus 27 units SQ x 1 dose this AM and then resume Lantus 33 units SQ BID tonight * Bolus insulin : no change * NovoLog per scale ACHS or Q6hrs while NPO * Goal Range: Low 110 mg/dL - High 140 mg/dL * Correction Factor: 15 mg/dL/unit * Nutritional / Prandial insulin per carb ratio of 1 unit per 5 grams CHO consumed
[2017-11-01 11:00] VITALS: BP 124/74; PULSE 95; TEMP 36.7; O2SAT 95
[2017-11-01] MEDS ORDERED: METOPROLOL TARTRATE 1 MG/ML VIAL ONE (11:42)
[2017-11-01] MEDS ORDERED: DOBUTamine HCL 12.5 MG/ML 20 ML VIAL ONE (11:42)
[2017-11-01] MEDS ORDERED: ATROPINE SULFATE 0.1 MG/ML 5ML SYR ONE (11:44)
[2017-11-01] MEDS ORDERED: PERFLUTREN LIPID MICROSPHERE (DEFINITY) IV ONE (12:43)
--- NOTE | 2017-11-01 13:22 | DOBUTAMINE ECHO ---
*NOTICE TO RECEIVING [employer] This information is strictly Confidential and protected under [place] law. [place] law prohibits you from making any further disclosure of this information unless further disclosure is expressly permitted by the written consent of the person to whom it pertains or is authorized by law. A general authorization for the release of medical or other information is not sufficient for this purpose. Hospital accepts no responsibility if the information is made available to any other person, INCLUDING THE PATIENT. Interpretation Summary * Name: ROBERT BARAJAS JR Study Date: 11/01/2017 11:39 AM BP: 112/74 mmHg * Patient Location: .2T\S\S241\S\2 HR: 94 * : 1975 (M/d/yyyy) Gender: Male Height: 75 in * Age: 41 yrs Ethnicity: CA Weight: 276 lb * Ordering Physician: Avery Gonzales * Referring Physician: Self, Referred * Performed By: Nini Flood RCS * * Reason For Study: Chest Pain * BSA: 2.5 m2 * STRESS STUDY: Normal pharmacologic stress echocardiogram. No echocardiographic or ECG evidence of myocardial ischemia having achieved heart rate adequate for diagnostic purposes. * -- Conclusions -- * Atypical chest pain was present throughout study without change Procedure Details * DOBUTAMINE ECHO, CPT#51218 * A contrast injection of Definity was performed to improve assessment of LV function. * Contrast was injected into an intravenous site in the left arm. * One vial of Definity ultrasound contrast was diluted in normal saline to a total volume of 10 ml. A total of '4' ml of solution was administered during imaging. * Lot # [id number] of Definity utilized for procedure. * Expiration date . * The attending nurse who injected the contrast agent was Maureen Gonzalez RN. Left Ventricle * There is mild concentric left ventricular hypertrophy. * Left ventricular systolic function is normal. * Ejection Fraction = 60-65%. * Resting wall motion: Normal. Stress wall motion: Appropriate increase in Left ventricular systolic function and decrease in cavity size. No stress induced segmental wall motion abnormalities. Stress Parameters * Normal baseline electrocardiogram. * The stress ECG response was normal * No arrhythmia were noted with stress. * The stress portion of this study was personally supervised by the undersigned interpreting physician. * Rest heart rate was '94' BPM. * Rest blood pressure was '112/74' * Maximum heart rate achieved was 155 bpm. * Maximum heart rate was 87 % of maximum age-predicted heart rate. * Maximum blood pressure was '135/54' * Maximum Dobutamine infusion rate was '50' mcg/kg/min. * A total of 0.5 mg of intravenous Atropine was used to supplement Dobutamine for heart rate response. * Dobutamine infusion was terminated due to achieving target heart rate * A total of 7.5 mg of IV Metoprolol was administered to reverse Dobutamine-induced tachycardia. * Atypical chest pain was present throughout study without change
--- NOTE | 2017-11-01 14:34 | CARDIOLOGY PROGRESS NOTE ---
DATE: 11/01/2017 CARDIOLOGY CONSULTATION FOLLOWUP NOTE The patient seen and examined. Chart, laboratory studies reviewed. SUBJECTIVE: The patient continues to have a very low grade chest discomfort, especially on palpation of the chest throughout hospital stay. Notes no dizziness or lightheadedness. Notes no syncope or near syncope. Appetite has been stable. Heart rate is slightly lower. OBJECTIVE: VITAL SIGNS: Heart rate is 86, blood pressure is 124/74. HEENT: Normocephalic and atraumatic. NECK: Thick. There is no distinct jugular venous distention. LUNGS: Clear. CARDIOVASCULAR: Regular. There is no S3 gallop. ABDOMEN: Soft. EXTREMITIES: Without cyanosis or clubbing. There is no peripheral edema. DATA: Laboratory studies today, glucose is 120. Dobutamine stress echocardiography study was performed under direct supervision. The patient received a maximum dose of 50 mcg per kilogram per minute of dobutamine and 0.5 mg IV atropine. The patient achieving 88% predicted maximum heart rate. The patient had a low level of chest discomfort and chest tenderness throughout the procedure without exacerbation or worsening. Resting EKG was normal. Stress EKG revealed no stress-induced ischemia. Resting LV function was normal as well as stress LV function. There was no evidence of stress-induced ischemia by EKG or echocardiographic criteria. EKG this morning with chest pain demonstrates sinus rhythm with a rate of 87 with normal tracing. IMPRESSION: Noncardiac chest pain with negative dobutamine stress echocardiography. As noted, the patient was begun on low-dose beta ryan. This may ultimately aid in heart rate control. Other cardiac risk factors of family history and hyperlipidemia are being moderated with good lipid control. Follow up with primary care physician.
[2017-11-01 15:36] VITALS: BP 123/78; PULSE 102; TEMP 36.9; O2SAT 94
[2017-11-01] MEDS ORDERED: TPRSR25 PO ×2 (16:06)
[2017-11-01] MEDS ORDERED: XRL15 PO ×2 (16:06)
--- NOTE | 2017-11-01 16:12 | Discharge Instructions ---
Discharge Instructions Date of Service Nov 01, 2017. Admission Reason for Admission: chest pain . Discharge Discharge Diagnosis / Problem: no sign of a heart attack Discharge Goals Goal(s): Decrease discomfort, Improve disease control Activity Recommendations Activity Limitations: resume your previous activity . Instructions / Follow-Up Instructions / Follow-Up APPOINTMENTS: FAMILY MEDICINE 11/08/2017 at 11:00 AM Velasquez Valencia MD PSYCHIATRY 11/10/2017 at 8:[address] Lisandra Porter OTHER INSTRUCTIONS: New medication: metoprolol succinate (Torpol XL) 25 mg pills take 1/2 pill twice a day good for your heart and blood pressure Seek medical attention if you have: * temperature above 101 * chest pain or trouble breathing * abdominal pain, nausea, vomiting * diarrhea, dark stools or bloody stools * any unanswered questions or concerns Call 911 if symptoms are severe. Call if you have any questions or problems. You can reach a [facility] hospitalist on duty at [facility] 24 hours a day by calling [phone]. Please take good care of yourself. Glenn Leija . Current Hospital Diet Patient's current hospital diet: Diabetes Type 2 Diet, AHA Diet (Heart Healthy) Discharge Diet Recommended Diet: AHA Diet (Heart Healthy), Diabetes Type 2 Diet Procedures Procedures Performed: no sign of heart attack stress test OK Pending Studies Studies pending at discharge: no Laboratory Results Hemoglobin A1c Test 10/31/17 06:53 Range/Units Estimated Average Glucose 157 mg/dl Hemoglobin A1c 7.1 H 4.5-5.6 % Lipid Panel Test 10/31/17 06:53 Range/Units Triglycerides Level 166 H 0-150 mg/dl Cholesterol Level 131 0-200 mg/dl HDL Cholesterol 38 mg/dl Cholesterol/HDL Ratio 3.4 LDL Cholesterol, Calculated 60 mg/dl Medical Emergencies . Who to Call and When: Medical Emergencies: If at any time you feel your situation is an emergency, please call 911 immediately. . Non-Emergent Contact Non-Emergency issues call your: Primary Care Provider, Hospital Doctor . . "Provider Documentation" section prepared by Glenn Leija. . VTE Core Measure Inpt VTE Proph given/why not?: Other Anticoagulation (rivaroxaban)
[2017-11-01 16:32] VITALS: BP 123/78; PULSE 102; TEMP 36.9; O2SAT 94
--- NOTE | 2017-11-01 20:29 | Progress Note ---
Medicine Progress Note Date & Time of Visit: Nov 01, 2017 at 16:00 . Subjective Ongoing chest pressure. No evidence of stress-induced ischemia on dobutamine stress echo today. . Objective Last 8 Hrs Date Time Temp Pulse Resp B/P (MAP) Pulse Ox O2 Delivery O2 Flow Rate FiO2 11/01/17 15:36 36.9 102 20 123/78 (93) 94 Room Air 11/01/17 12:00 Room Air 11/01/17 11:00 36.7 95 20 124/74 (91) 95 Room Air Physical Exam: General- lying in bed, no distress Lungs- clear Cardiovascular- RRR, no gallop; no JVD; trace pretibial edema Abdomen- + BS, soft, nontender Extremities- no cyanosis; no calf tenderness; well-healed incision left foot, no erythema or drainage Neuro- alert Skin- warm & dry . Laboratory Results: Last 24 Hours Test 10/31/17 16:10 10/31/17 20:30 11/01/17 06:24 11/01/17 11:11 Bedside Glucose 133 mg/dl 112 mg/dl 123 mg/dl 120 mg/dl Assessment & Plan CHEST PAIN Atypical chest pain. Serum troponins negative x 3. CTA chest 10/27/17 negative for pulmonary embolism. Multiple risk factors for ischemic heart disease. Seen in consultation by Cardiology. Dobutamine stress echo did not show any evidence of ischemia. No apparent cardiac or pulmonary etiology of chest pain. Ongoing risk-factor reduction. Symptoms may be stress-related. Consider UGI work-up if symptoms do not resolve. HYPERTENSION Metoprolol succinate 12.5 mg daily initiated. Lisinopril continued. DM TYPE 2 FBS 123. Continue usual regimen. DYSLIPIDEMIA Continue atorvastatin. DEPRESSION Continue aripiprazole and duloxetine. DIABETIC NEUROPATHY Continue gabapentin. FOOT ABSCESS / CELLULITIS Afebrile. Finished coursed of doxycycline. RECENT DVT LLE / VTE PROPHYLAXIS Continue rivaroxaban. Ambulate. DISPOSITION Discharge to home. Family Medicine follow-up with Dr. Valencia. Psychiatry follow-up with Dr. Lisandra Porter 11/10/17 at 8:00. . Current Inpatient Medications: Current Inpatient Medications Medications (Trade) Dose Ordered Sig/Mario Alberto Route Start Time Stop Time Status Last Admin Dose Admin Ondansetron HCl (Zofran Inj) 4 mg Q6H PRN IV 1/13/18 15:15 11/29/17 15:14 Nitroglycerin (Nitrostat Tab) 0.4 mg UD PRN SL 10/30/17 15:15 11/29/17 15:14 Morphine Sulfate (MoRPHine SULFATE INJ) 4 mg Q2H PRN IV 10/30/17 15:15 11/13/17 15:14 10/30/17 15:49 4 MG Polyethylene (Miralax Powder Packet) 17 gm DAILY PRN PO 10/30/17 15:15 11/29/17 15:14 10/31/17 08:17 17 GM Miscellaneous Information (Consult Glycemic Management Pharmacy) 1 ea UD PRN N/A 10/30/17 15:30 11/29/17 15:29 Insulin Aspart (novoLOG ASPART) SLIDING SCALE ACHS SC 10/30/17 16:15 11/29/17 16:14 11/01/17 13:35 9 UNITS Glucose (Glucose 40% Gel) 15-30 GRAMS 15 GRAMS... UD PRN PO 10/30/17 15:30 11/29/17 15:29 Glucose (Glucose Chew Tab) 4-8 Tablets 4 Tabl... UD PRN PO 10/30/17 15:30 11/29/17 15:29 Dextrose (Dextrose 50% 50ML Syringe) 25-50ML OF 50% DW IV FOR... UD PRN IV 10/30/17 15:30 11/29/17 15:29 Glucagon (Glucagon Inj) 1 mg UD PRN SQ 10/30/17 15:30 11/29/17 15:29 Aripiprazole (Abilify Tab) 10 mg HS PO 10/30/17 21:00 11/29/17 20:59 10/31/17 20:47 10 MG Aspirin (Ecotrin Tab) 81 mg DAILY PO 10/31/17 09:00 11/30/17 08:59 11/01/17 07:39 81 MG Atorvastatin Calcium (Lipitor Tab) 40 mg DAILY PO 10/31/17 09:00 11/30/17 08:59 11/01/17 07:39 40 MG Duloxetine HCl (Cymbalta Cap) 60 mg DAILY PO 10/31/17 09:00 11/30/17 08:59 11/01/17 07:39 60 MG Gabapentin (Neurontin Cap) 400 mg TID PO 10/30/17 21:00 11/29/17 20:59 11/01/17 13:06 400 MG Gabapentin (Neurontin Tab) 600 mg TID PO 10/30/17 21:00 11/29/17 20:59 11/01/17 13:06 600 MG Lisinopril (Zestril Tab) 10 mg DAILY PO 10/31/17 09:00 11/30/17 08:59 11/01/17 07:40 10 MG Pantoprazole Sodium (Protonix Tab) 40 mg DAILY PO 10/31/17 09:00 11/30/17 08:59 11/01/17 07:39 40 MG Tramadol HCl (Ultram Tab) 50 mg Q6H PRN PO 10/30/17 15:45 11/29/17 15:44 10/30/17 19:07 50 MG Acetaminophen (Tylenol Tab) 1,000 mg Q8 PO 10/30/17 22:00 11/01/17 21:59 11/01/17 13:05 1,000 MG Rivaroxaban (Xarelto Tab) 15 mg BID PO 10/31/17 09:00 11/20/17 21:01 11/01/17 07:39 15 MG Miscellaneous (Iv Fluids Completed) 1 ea PRN PRN N/A 10/30/17 16:15 10/30/18 16:14 Insulin Glargine (Lantus Solostar Pen) 33 units BID SC 10/31/17 09:00 11/30/17 08:59 Future hold 10/31/17 21:13 33 UNITS Metoprolol Succinate (Toprol Xl Tab) 12.5 mg QAM PO 11/01/17 09:00 12/01/17 08:59 11/01/17 07:39 12.5 MG
--- NOTE | 2017-11-02 09:53 | Discharge Summary ---
Discharge Summary Date of Service Nov 02, 2017. Discharge Summary Admission Date: Oct 30, 2017 at 14:43 Discharge Date: Nov 01, 2017 Discharge Disposition: Home Principal Diagnosis: atypical chest pain . Secondary Diagnoses/Problems: Chronic and Resolved Medical Problems: (1) Depression Status: Chronic (2) Depression Status: Chronic (3) Diabetes mellitus with neurological manifestation Permanent Comment: Diabetic neuropathy reported in hands and feet Status: Chronic (4) Diabetes mellitus, type 2 Status: Chronic (6) Foot abscess Permanent Comment: s/p I&D Aug 2017 Status: Resolved (7) Gastroparesis Status: Chronic (8) History of DVT (deep vein thrombosis) Status: Chronic (9) History of ventricular tachycardia Permanent Comment: nonsustained Status: Chronic (10) HTN (hypertension) Status: Chronic (11) IBS (irritable bowel syndrome) Status: Chronic (12) Intellectual disability Status: Chronic (13) Nicotine dependence Status: Chronic (14) Obesity Status: Chronic (15) Obstructive sleep apnea Status: Chronic Surgical Problems: (1) S/P left knee arthroscopy Status: Chronic (2) S/P tonsillectomy Status: Chronic (3) Status post incision and drainage Status: Chronic . Procedures: dobutamine stress echo . Consultations: Cardiology with Dr. Gonzales . Medication Reconciliation New Medications: Metoprolol Succinate (Metoprolol Succinate ER) 25 Mg Tabcr 12.5 MG PO QAM, #15 TAB 5 Refills Take 1/2 pill twice a day. Rivaroxaban (Xarelto) 15 Mg Tab 15 MG PO BID, #60 TAB 5 Refills Continued Medications: Aripiprazole (Aripiprazole) 10 Mg Tab 10 MG PO HS Aspirin (Aspirin Ec) 81 Mg Tab 81 MG PO DAILY Atorvastatin (Lipitor) 40 Mg Tab 40 MG PO DAILY, TAB Duloxetine HCl (Duloxetine HCl) 60 Mg Cap 60 MG PO DAILY Gabapentin (Gabapentin) 400 Mg Cap 400 MG PO TID TAKE ONE 400 MG TABLET ALONG WITH ONE 600 MG TABLET TO EQUAL 1000 MG DOSE Gabapentin (Gabapentin) 600 Mg Tab 600 MG PO TID TAKE ONE 600 MG TABLET ALONG WITH ONE 400 MG TABLET TO EQUAL 1000 MG DOSE Insulin Aspart (Novolog Flexpen) 100 Units/Ml Inj 28 UNITS SQ AC Insulin Glargine (Lantus Solostar) 100 Unit/Ml Inj 50 UNITS SQ BID, PEN Lisinopril (Lisinopril) 10 Mg Tab 10 MG PO DAILY Nicotine Polacrilex (Nicorelief) 1 Piece Gum 1 PIECE PO UD PRN for Nicotine Craving Pantoprazole (Protonix) 40 Mg Tab 40 MG PO DAILY, TAB Polyethylene Glycol 3350 (Miralax) 1 Pow Pow 17 GM PO DAILY PRN for Constipation, GM Tramadol (Ultram) 50 Mg Tab 50 MG PO Q6H PRN for Pain, TAB Discontinued Medications: Doxycycline Hyclate (Doxycycline Hyclate) 100 Mg Tab 100 MG PO BID for 10 Days, TAB Rivaroxaban (Xarelto Starter Pack 15 & 20 mg) 1 Tab Tab 15 MG PO UD for 30 Days, 3 Refills XARELTO 15MG PO TWICE DAILY X 21 DAYS THEN XARELTO 20MG PO ONCE DAILY Admission Information HPI (per Admitting provider): 41 yo M with no known cardiac disease, uncontrolled diabetes, recently diagnosed DVT in Sep 2017 and depression presented via EMS to the ER on 10/27 with reports of chest pain that began while he was riding a scooter in the local grocery store. With recent h/o blood clot, description of pleuritic chest pain and tachycardia, a CTA of the chest was performed revealing no PE. All other workup for acute ischemia including serial cardiac enzymes and EKG was normal and he was set to be discharged home. He then reported suicidal ideations and was sent to voluntarily for inpatient behavioral health treatment. He was doing well until today (10/30) when he began to get a recurrence of the same pain he initially described in the ER. This occurred during a group therapy session and he admits that he was not stressed by the topic of conversation. He described a L anterior chest wall pain that radiated down his L arm. He denies any shortness of breath, diaphoresis, or other associated symptoms with his chest pain. The pain is not provoked by food or exertion and is not alleviated by anything either. En route to the hospital on 10/27 he was given ASA and nitro which was not successful in controlling his pain and he reports neither was the morphine he was given in the ER. The pain is a constantly recurring issue for him that has been ongoing now for over a year. Per the records he has had a DSE 06/[address] Salvador and then was also recently seen by him as an inpatient in the last couple of weeks. He has had multiple resting TTEs in the past few months that are all consistent and do not reveal acute wall motion abnormalities. His risk factors for CAD include uncontrolled diabetes (A1c 9.2 08/03), active smoking, hyperlipidemia, inactive lifestyle, and early family history of PR (father at 55 yo). He was given ASA 325 and was transferred to telemetry for further workup and monitoring. An EKG and CXR was ordered. ROS reveals no other symptoms aside from some persistent chronic L foot pain that is intermittent. . Physical Exam (per Admitting): General Appearance: WD/WN, no apparent distress, + pertinent finding (pt was walking around and eating food with no issues while reporting active chest pain, no respiratory distress noted.) Head: normocephalic, atraumatic Eyes: normal inspection, sclerae normal ENT: hearing grossly normal Neck: trachea midline Respiratory/Chest: lungs clear, normal breath sounds, no respiratory distress, no accessory muscle use, + pertinent finding (chest wall very TTP on L anterior and along posterior upper L back around scapula/thoracic paraspinal region.) Cardiovascular: no edema, no gallop, no JVD, no murmur, normal peripheral pulses, + tachycardia Abdomen/GI: normal bowel sounds, non tender, soft Back: normal inspection Extremities/Musculoskelatal: normal inspection, no calf tenderness, no pedal edema, normal range of motion Neurologic/Psych: no motor/sensory deficits, alert, normal mood/affect, oriented x 3 Skin: warm/dry, + pertinent finding (L foot has a dusky reddish color that he reports is unchanged since after his treatment for cellulitis, there is no drainage from wounds in his foot which are well-healed.) Hospital Course CHEST PAIN Atypical chest pain. Serum troponins negative x 3. CTA chest 10/27/17 negative for pulmonary embolism. Multiple risk factors for ischemic heart disease. Seen in consultation by Cardiology. Dobutamine stress echo did not show any evidence of ischemia. No apparent cardiac or pulmonary etiology of chest pain. Ongoing risk-factor reduction. Symptoms may be stress-related. Consider UGI work-up if symptoms do not resolve. HYPERTENSION Metoprolol succinate 12.5 mg daily initiated. Lisinopril continued. DM TYPE 2 FBS 123. Continue usual regimen. DYSLIPIDEMIA Continue atorvastatin. DEPRESSION Continue aripiprazole and duloxetine. DIABETIC NEUROPATHY Continue gabapentin. FOOT ABSCESS / CELLULITIS Afebrile. Finished coursed of doxycycline. RECENT DVT LLE / VTE PROPHYLAXIS Continue rivaroxaban. Ambulate. DISPOSITION Discharge to home. Family Medicine follow-up with Dr. Valencia. Psychiatry follow-up with Dr. Lisandra Porter 11/10/17 at 8:00. . Discharge Instructions Date of Service Nov 01, 2017. Admission Reason for Admission: chest pain . Discharge Discharge Diagnosis / Problem: no sign of a heart attack Discharge Goals Goal(s): Decrease discomfort, Improve disease control Activity Recommendations Activity Limitations: resume your previous activity . Instructions / Follow-Up Instructions / Follow-Up APPOINTMENTS: FAMILY MEDICINE 11/08/2017 at 11:00 AM Velasquez Valencia MD PSYCHIATRY 11/10/2017 at 8:[address] Lisandra Porter OTHER INSTRUCTIONS: New medication: metoprolol succinate (Torpol XL) 25 mg pills take 1/2 pill twice a day good for your heart and blood pressure Seek medical attention if you have: * temperature above 101 * chest pain or trouble breathing * abdominal pain, nausea, vomiting * diarrhea, dark stools or bloody stools * any unanswered questions or concerns Call 911 if symptoms are severe. Call if you have any questions or problems. You can reach a [facility] hospitalist on duty at [facility] 24 hours a day by calling [phone]. Please take good care of yourself. Glenn Leiaj . Current Hospital Diet Patient's current hospital diet: Diabetes Type 2 Diet, AHA Diet (Heart Healthy) Discharge Diet Recommended Diet: AHA Diet (Heart Healthy), Diabetes Type 2 Diet Procedures Procedures Performed: no sign of heart attack stress test OK Pending Studies Studies pending at discharge: no Laboratory Results Hemoglobin A1c Test 10/31/17 06:53 Range/Units Estimated Average Glucose 157 mg/dl Hemoglobin A1c 7.1 H 4.5-5.6 % Lipid Panel Test 10/31/17 06:53 Range/Units Triglycerides Level 166 H 0-150 mg/dl Cholesterol Level 131 0-200 mg/dl HDL Cholesterol 38 mg/dl Cholesterol/HDL Ratio 3.4 LDL Cholesterol, Calculated 60 mg/dl Medical Emergencies . Who to Call and When: Medical Emergencies: If at any time you feel your situation is an emergency, please call 911 immediately. . Non-Emergent Contact Non-Emergency issues call your: Primary Care Provider, Hospital Doctor . . "Provider Documentation" section prepared by Glenn Leija. . VTE Core Measure Inpt VTE Proph given/why not?: Other Anticoagulation (rivaroxaban) .
== END 2017-11-01 17:25 | disposition home or self-care (01) ==
LOC: INTOOBSV 14:43 → C.2T 14:43 → UNDOADMIN 14:44 → C.2T 14:44
PROVIDERS: ADMIT Hospitalist; ATTEND Hospitalist
DX: R07.89 Other chest pain (principal); I47.2 Ventricular tachycardia; I10 Essential (primary) hypertension; E78.5 Hyperlipidemia, unspecified; E11.42 Type 2 diabetes mellitus with diabetic polyneuropathy; E11.43 Type 2 diabetes mellitus with diabetic autonomic (poly)neuropathy; G47.33 Obstructive sleep apnea (adult) (pediatric); K58.9 Irritable bowel syndrome, unspecified; F79 Unspecified intellectual disabilities; E66.9 Obesity, unspecified; F32.9 Major depressive disorder, single episode, unspecified; Z86.718 Personal history of other venous thrombosis and embolism; Z79.82 Long term (current) use of aspirin; Z79.4 Long term (current) use of insulin; Z79.899 Other long term (current) drug therapy; F17.200 Nicotine dependence, unspecified, uncomplicated

== ENCOUNTER 2017-11-05 23:18 | Emergency (ER) | payer OTHER ==
[~2017-11-05] VITALS: Ht 190.5 cm; Wt 134.0 kg
[~2017-11-05 23:18] MED LIST changes: -ATOR10TA82 PO; -DOXY1TAB6 PO; +LPT/40 PO; -RIVA1TAB7 PO; +TPRSR25 PO; +XRL15 PO
[2017-11-05 23:23] VITALS: TEMP 37.1; Ht 190.5 cm; Wt 134.0 kg
[2017-11-05] MEDS ORDERED: [UNRECOGNIZED DRUG - CODE] PO (23:52)
[2017-11-05] MEDS ORDERED: METO25TA3 PO (23:53)
[2017-11-05] MEDS ORDERED: XRL10 PO (23:55)
--- NOTE | 2017-11-05 23:58 | EMERGENCY ROOM VISIT NOTE ---
History Report prepared by Marianela: Black Lyles Under the Supervision of: Dr. Robina Harry D.O. First contact with patient: 23:29 Chief Complaint: MENTAL HEALTH EVALUATION Stated Complaint: VOLUNTARY MENTAL HEALTH History of Present Illness The patient is a 41 year old male who presents to the Emergency Room with complaints of a worsening mental state that began recently. Patient adds that he called 911 and was brought to the ED via the state police. Patient states that "he does not want to live". He denies any specific reason for these symptoms. Patient states that he "has a lot going on in his head". He states that he has had suicidal ideations recently. He adds that he has a history of similar symptoms. Patient states that he was planning on overdosing on medication. He states that he has planned to overdose previous times before but never went through with it. Patient denies using any alcohol or drugs recently. Patient adds that he was discharged from [facility] on Wednesday because of chest pain. He states his chest pain has resolved. Patient states he is willing to admit himself to the hospital. He states he has previously been admitted to [facility], and [facility] in [place]. He adds that he will begin seeing a new therapist soon. Source of History: patient Onset: Recent Timing: worsening Modifying Factors (Relieving): other (None) Associated Symptoms: No chest pain Review of Systems See HPI for pertinent positives & negatives. A total of 10 systems reviewed and were otherwise negative. Past Medical & Surgical Medical Problems: (1) Depression (2) Depression (3) Diabetes mellitus with neurological manifestation (4) Diabetes mellitus, type 2 (5) DM type 2 (diabetes mellitus, type 2) (6) Foot abscess (7) Gastroparesis (8) History of DVT (deep vein thrombosis) (9) History of ventricular tachycardia (10) HTN (hypertension) (11) IBS (irritable bowel syndrome) (12) Intellectual disability (13) Intellectual disability (14) Nicotine dependence (15) Obesity (16) Obstructive sleep apnea Surgical Problems: (1) S/P left knee arthroscopy (2) S/P tonsillectomy (3) Status post incision and drainage Social History Problems: (1) Alcohol abuse Family History Cancer Diabetes mellitus MOTHER GRANDMOTHER UNCLE AUNT Gallbladder disease Heart disease Hypertension MOTHER FATHER Lung disease Social History Smoking Status: Current Every Day Smoker Alcohol Use: heavy Drug Use: none Marital Status: Housing Status: lives with family Current/Historical Medications Scheduled Aripiprazole (Aripiprazole), 10 MG PO HS Aspirin (Aspirin Ec), 81 MG PO DAILY Atorvastatin (Lipitor), 40 MG PO DAILY Duloxetine HCl (Duloxetine HCl), 60 MG PO DAILY Gabapentin (Gabapentin), 400 MG PO TID Gabapentin (Gabapentin), 600 MG PO TID Insulin Aspart (Novolog Flexpen), 28 UNITS SQ AC Insulin Glargine (Lantus Solostar), 50 UNITS SQ BID Lisinopril (Lisinopril), 10 MG PO DAILY Metoprolol Succ (Toprol Xl) (Toprol-Xl), 12.5 MG PO BID Pantoprazole (Protonix), 40 MG PO DAILY Rivaroxaban (Xarelto), 15 MG PO BID Scheduled PRN Nicotine Polacrilex (Nicorelief), 1 PIECE PO UD PRN for Nicotine Craving Polyethylene Glycol 3350 (Miralax), 17 GM PO DAILY PRN for Constipation Tramadol (Ultram), 50 MG PO Q6H PRN for Pain Allergies Coded Allergies: Cephalosporins (Verified Allergy, Unknown, CECLOR- RXN UNKNOWN. A CHILD. WILLING TO TRY CEPHS AGAIN, 11/05/17) NSAIDs (Verified Adverse Reaction, Unknown, gastroparesis, kidney problems , 11/05/17) Physical Exam Vital Signs Date Time Temp Pulse Resp B/P (MAP) Pulse Ox O2 Delivery O2 Flow Rate FiO2 11/06/17 06:10 122 18 95/56 97 Room Air 11/05/17 23:23 37.1 126 20 135/77 98 Room Air Physical Exam Neck: Supple; no nuchal rigidity, no cervical lymphadenopathy Heart: Regular rate and rhythm. There is a normal S1 and S2 with no murmurs, clicks, or gallops appreciated. Lungs: Clear to auscultation bilaterally with no wheezes, rales, or rhonchi. Abdomen: Soft, completely nontender, nondistended, with good bowel sounds. There are no palpable pulsatile masses or hepatosplenomegaly. There is no guarding, rigidity, or rebound noted. Extremities: No evidence of cyanosis, clubbing, or edema. There are easily palpable peripheral pulses. Skin: warm and dry with good turgor and no rashes, excessive scaling Psych: pleasant and cooperative, having suicidal thoughts and plans to overdose on medications Medical Decision & Procedures Laboratory Results 11/06/17 00:03 11/06/17 00:03 Test 11/06/17 00:00 11/06/17 00:03 Urine Color YELLOW Urine Appearance CLEAR (CLEAR) Urine pH 5.5 (4.5-7.5) Urine Specific [place] 1.033 (1.000-1.030) Urine Protein NEG (NEG) Urine Glucose (UA) NEG (NEG) Urine Ketones TRACE (NEG) Urine Occult Blood NEG (NEG) Urine Nitrite NEG (NEG) Urine Bilirubin NEG (NEG) Urine Urobilinogen NEG (NEG) Urine Leukocyte Esterase NEG (NEG) Urine Opiates Screen NEG (NEG) Urine Methadone, Qualitative NEG (NEG) Urine Barbiturates NEG (NEG) Urine Phencyclidine (PCP) Level NEG (NEG) Ur Amphetamine/Methamphetamine NEG (NEG) MDMA (Ecstasy) Screen NEG (NEG) Urine Benzodiazepines Screen NEG (NEG) Urine Cocaine Metabolite NEG (NEG) Urine Marijuana (THC) NEG (NEG) Red Blood Count 4.98 M/uL (4.7-6.1) Mean Corpuscular Volume 84.7 fL (80-100) Mean Corpuscular Hemoglobin 28.9 pg (25-34) Mean Corpuscular Hemoglobin Concent 34.1 g/dl (32-36) RDW Standard Deviation 41.4 fL (36.4-46.3) RDW Coefficient of Variation 13.4 % (11.5-14.5) Mean Platelet Volume 9.0 fL (7.4-10.4) Anion Gap 7.0 mmol/L (3-11) Est Creatinine Clear Calc Drug Dose 126.6 ml/min Estimated GFR () 93.8 Estimated GFR (Non- 80.9 BUN/Creatinine Ratio 20.6 (10-20) Calcium Level 9.1 mg/dl (8.5-10.1) Total Bilirubin 0.4 mg/dl (0.2-1) Direct Bilirubin < 0.1 mg/dl (0-0.2) Aspartate Amino Transf (AST/SGOT) 18 U/L (15-37) Alanine Aminotransferase (ALT/SGPT) 41 U/L (12-78) Alkaline Phosphatase 74 U/L (45-117) Total Protein 8.1 gm/dl (6.4-8.2) Albumin 3.9 gm/dl (3.4-5.0) Thyroid Stimulating Hormone (TSH) 1.940 uIu/ml (0.300-4.500) Salicylates Level < 1.7 mg/dl (2.8-20) Acetaminophen Level < 2 ug/ml (10-30) Ethyl Alcohol mg/dL < 3.0 mg/dl (0-3) Laboratory results per my review. ED Course 2350: The patient was evaluated in room A5. A complete history and physical examination were performed. Nursing notes and previous electronic medical records were reviewed. labs were drawn as above. 0153: I reassessed the patient who is resting comfortably. 0557: Bed search for patient is continuing with hope of transferring him to [facility]. 0730: Patient was signed out to Dr. Quintanilla at the change of shifts. Medical Decision The patient is a 41 year old male who presents to the ED with suicidal thoughts. Differential diagnosis includes mood disorder, suicidal ideations, thought disorder, depression, and anxiety. Lab results show white count = 13.7, stable H&H, glucose = 140, Normal LFT and TSH, BUN = 23, creatinine = 1.1, negative alcohol and tox screen, negative Tylenol and Aspirin levels, negative urine, urine is only positive ketones. The patient has a history of mental health issues and has had previous inpatient psychiatric stays. The patient was recently discharged from the hospital and thought that he was discharged too early and continues to have suicidal thoughts. He was planning to overdose on meds. The patient was evaluated by staff from [facility] and they have performed a bedside. The patient will most likely noted [facility] if they have a bed available today. The case was signed out to Dr. Quintanilla change of shift awaiting bed placement. Medication Reconcilliation Current Medication List: was personally reviewed by me Blood Pressure Screening Patient's blood pressure: Normal blood pressure Blood pressure disposition: Did not require urgent referral Impression Primary Impression: Suicidal ideation Scribe Attestation The scribe's documentation has been prepared under my direction and personally reviewed by me in its entirety. I confirm that the note above accurately reflects all work, treatment, procedures, and medical decision making performed by me. Departure Information Dispostion Still a Patient Referrals Velasquez Valencia M.D. (PCP) Patient Instructions [facility]
[2017-11-06 00:22] LABS: HEMATOCRIT 42.2 % (42-52); HEMOGLOBIN 14.4 g/dL (14.0-18.0); MEAN CELL VOLUME 84.7 fL (80-100); MEAN CORPUSCULAR HEMOGLOBIN 28.9 pg (25-34); MEAN CORPUSCULAR HGB CONC 34.1 g/dl (32-36); PLATELET COUNT 271 K/uL (130-400); RED CELL DISTRIBUTION WIDTH CV 13.4 % (11.5-14.5); RED CELL DISTRIBUTION WIDTH SD 41.4 fL (36.4-46.3); WHITE BLOOD COUNT 13.79 K/uL (4.8-10.8)
[2017-11-06 00:40] LABS: BLOOD UREA NITROGEN 23 mg/dl (7-18); CREATININE 1.11 mg/dl (0.60-1.40); GLUCOSE 140 mg/dl (70-99)
[2017-11-06 00:41] LABS: ALBUMIN 3.9 gm/dl (3.4-5.0); ALT/SGPT 41 U/L (12-78); AST/SGOT 18 U/L (15-37); CALCIUM 9.1 mg/dl (8.5-10.1); CARBON DIOXIDE 27 mmol/L (21-32); POTASSIUM 3.5 mmol/L (3.5-5.1); SODIUM 135 mmol/L (136-145)
[2017-11-06 00:51] LABS: ALKALINE PHOSPHATASE 74 U/L (45-117); TOTAL PROTEIN 8.1 gm/dl (6.4-8.2)
--- NOTE | 2017-11-06 06:58 | EMERGENCY ROOM VISIT NOTE ---
ED Visit Note First contact with patient: 08:16 Pt signed out to me at change of shift. History and Physical verified by me. Pt believed to be going to [facility]. and was eventually accepted. Pt given his morning meds and transferred without incident.
[2017-11-06] MEDS ORDERED: TRAMADOL HCL 50 MG TAB PO PRN (07:00)
[2017-11-06] MEDS ORDERED: DULOXETINE HCL 60 MG CAP PO SCH (09:00)
[2017-11-06] MEDS ORDERED: RIVAROXABAN TAB 15 MG TAB PO SCH (09:00)
[2017-11-06] MEDS ORDERED: LISINOPRIL 10 MG TAB PO SCH (09:00)
[2017-11-06] MEDS ORDERED: METOPROLOL SUCC 25MG EXT REL TAB PO SCH (09:00)
[2017-11-06] MEDS ORDERED: PANTOprazole SOD 40 MG TAB PO SCH (09:00)
[2017-11-06] MEDS ORDERED: ATORVASTATIN 40 MG TAB PO SCH (09:00)
[2017-11-06] MEDS ORDERED: RIVAROXABAN 20 MG TAB PO SCH (09:00)
[2017-11-06] MEDS ORDERED: INSULIN ASPART 100 UNITS/ML 3 ML PEN SC SCH (11:00)
[2017-11-06 13:15] VITALS: BP 150/84; PULSE 101; O2SAT 98
[2017-11-06] MEDS ORDERED: LANTUS PER UNIT CHARGE SC SCH (21:00)
== END 2017-11-06 13:38 ==
LOC: C.EDB 23:19 → C.EDA 11-06 13:38
DX: R45.851 Suicidal ideations (principal); R82.4 Acetonuria; F32.9 Major depressive disorder, single episode, unspecified; E11.49 Type 2 diabetes mellitus with other diabetic neurological complication; I10 Essential (primary) hypertension; F17.200 Nicotine dependence, unspecified, uncomplicated; F10.99 Alcohol use, unspecified with unspecified alcohol-induced disorder; Z79.82 Long term (current) use of aspirin; Z79.4 Long term (current) use of insulin; Z83.3 Family history of diabetes mellitus; Z83.79 Family history of other diseases of the digestive system; Z82.49 Family history of ischemic heart disease and other diseases of the circulatory system; Z83.6 Family history of other diseases of the respiratory system

== ENCOUNTER 2017-12-08 11:21 | Emergency (ER) | payer OTHER ==
[~2017-12-08] VITALS: Ht 190.5 cm; Wt 131.0 kg
[~2017-12-08 11:21] MED LIST changes: +METO25TA3 PO; -TPRSR25 PO; +XRL10 PO; -XRL15 PO
[2017-12-08 11:27] VITALS: TEMP 37.3; Ht 190.5 cm; Wt 131.0 kg
[2017-12-08] MEDS ORDERED: SODIUM CHLORIDE 0.9% 1000ML 2,000 ML IV STA (11:50)
[2017-12-08] MEDS ORDERED: ONDANSETRON INJ 2 MG/ML 2 ML VIAL IV STA (11:50)
[2017-12-08] MEDS ORDERED: MoRPHine SULFATE 4 MG/ML 1 ML CARP\\VIAL IV PRN (12:00)
[2017-12-08] MEDS ORDERED: OPTIRAY 320 IV PRN (12:00)
--- NOTE | 2017-12-08 12:06 | EMERGENCY ROOM VISIT NOTE ---
History Report prepared by Marianela: Trinity Zuniga Under the Supervision of: Dr. Jaydon Brewer M.D. First contact with patient: 11:40 Chief Complaint: ABDOMINAL PAIN Stated Complaint: ILLNESS Nursing Triage Summary: pt here with rlq pain x 3 days along with n/v. pt states pain with palpation. History of Present Illness The patient is a 42 year old male who presents to the Emergency Room with complaints of worsening RLQ abdominal pain for the past 3 days. The patient is also experiencing nausea and vomiting. He has been unable to keep anything down , except this morning he was finally able to keep down some gingerale. His pain is at 10/10 at the most severe, he rates his current pain as a 6/10 in severity. His pain radiates into the right groin. The patient denies fevers, testicular pain, urinary symptoms, and diarrhea. He denies any previous abdominal surgeries. He was brought to the ED by ambulance. Source of History: patient Onset: 3 days ago Position: abdomen (RLQ) Symptom Intensity: 10/10 Quality: other (radiating) Timing: worsening Associated Symptoms: + nausea, + vomiting, No fevers, No diarrhea, No urinary symptoms Review of Systems See HPI for pertinent positives & negatives. A total of 10 systems reviewed and were otherwise negative. Past Medical & Surgical Medical Problems: (1) Depression (2) Depression (3) Diabetes mellitus with neurological manifestation (4) Diabetes mellitus, type 2 (5) DM type 2 (diabetes mellitus, type 2) (6) Foot abscess (7) Gastroparesis (8) History of DVT (deep vein thrombosis) (9) History of ventricular tachycardia (10) HTN (hypertension) (11) IBS (irritable bowel syndrome) (12) Intellectual disability (13) Intellectual disability (14) Nicotine dependence (15) Obesity (16) Obstructive sleep apnea Surgical Problems: (1) S/P left knee arthroscopy (2) S/P tonsillectomy (3) Status post incision and drainage Social History Problems: (1) Alcohol abuse Family History Cancer Diabetes mellitus MOTHER GRANDMOTHER UNCLE AUNT Gallbladder disease Heart disease Hypertension MOTHER FATHER Lung disease Social History Smoking Status: Current Every Day Smoker Alcohol Use: heavy Drug Use: none Marital Status: Housing Status: lives with family Current/Historical Medications Scheduled Aripiprazole (Aripiprazole), 10 MG PO HS Aspirin (Aspirin Ec), 81 MG PO DAILY Atorvastatin (Lipitor), 40 MG PO DAILY Duloxetine HCl (Duloxetine HCl), 60 MG PO DAILY Gabapentin (Gabapentin), 400 MG PO TID Insulin Aspart (Novolog Flexpen), 28 UNITS SQ AC Insulin Glargine (Lantus Solostar), 50 UNITS SQ BID Lisinopril (Lisinopril), 10 MG PO DAILY Metoprolol Succ (Toprol Xl) (Toprol-Xl), 12.5 MG PO BID Ondasetron Odt (Zofran Odt), 4-8 MG SL Q6H Pantoprazole (Protonix), 40 MG PO DAILY Rivaroxaban (Xarelto), 15 MG PO BID Scheduled PRN Hydroxyzine Pamoate (Vistaril), 1 CAP PO Q6H PRN for Anxiety Nicotine Polacrilex (Nicorelief), 1 PIECE PO UD PRN for Nicotine Craving Polyethylene Glycol 3350 (Miralax), 17 GM PO DAILY PRN for Constipation Tramadol (Ultram), 50 MG PO Q6H PRN for Pain Allergies Coded Allergies: Cephalosporins (Verified Allergy, Unknown, CECLOR- RXN UNKNOWN. A CHILD. WILLING TO TRY CEPHS AGAIN, 12/08/17) NSAIDs (Verified Adverse Reaction, Unknown, gastroparesis, kidney problems , 12/08/17) Physical Exam Vital Signs Date Time Temp Pulse Resp B/P (MAP) Pulse Ox O2 Delivery O2 Flow Rate FiO2 12/08/17 14:35 112 18 157/68 95 Room Air 12/08/17 13:51 117 20 167/73 97 Room Air 12/08/17 12:25 104 16 123/69 92 Room Air 12/08/17 11:27 37.3 113 16 138/75 94 Room Air Physical Exam GENERAL: Patient is in no acute distress. HEENT: No acute trauma, normocephalic atraumatic, mucous membranes moist, no nasal congestion, no scleral icterus. NECK: No stridor, no adenopathy, no meningismus, trachea is midline. LUNGS: Clear to auscultation bilaterally, no wheeze, no rhonchi, breath sounds equal. HEART: Tachycardic with a regular rhythm, no murmurs. ABDOMEN: Soft, somewhat tender in the RLQ and right pelvis/groin, bowel sounds positive, no hernias, no peritonitis. EXTREMITIES: No cyanosis or edema, full range of motion of all the joints without pain or difficulty, no signs for acute trauma. NEUROLOGIC: Oriented x 3, no acute motor or sensory deficits, no focal weakness. SKIN: No rash, no jaundice, no diaphoresis. Medical Decision & Procedures ER Provider Diagnostic Interpretation: Radiology results as stated below per my review and radiologist interpretation: CT ABD/PELVIS IV CONTRAST ONLY CLINICAL HISTORY: Right lower quadrant abdominal pain COMPARISON STUDY: None. TECHNIQUE: Following the IV administration of 92 mL of Optiray-320, CT scan of the abdomen and pelvis was performed from the lung bases to the proximal femurs. Images are reviewed in the axial, sagittal, and coronal planes. IV contrast was administered without complication. A dose lowering technique was utilized adhering to the principles of ALARA. CT DOSE: 1727.01 mGy.cm FINDINGS: Lower chest: The heart is normal in size and configuration, without pericardial effusion. The lung bases and pleural spaces are clear. Liver: The contrast-enhanced liver is normal in size, contour, and attenuation. There is no intrahepatic biliary ductal dilatation. The hepatic veins and portal veins are patent. Gallbladder: Unremarkable. Spleen: Normal in size and attenuation. Pancreas: Unremarkable. Adrenal glands: Unremarkable. Kidneys: There is symmetric renal cortical enhancement. The kidneys are normal in size without hydronephrosis. Bowel: There are no transition zones indicate bowel obstruction. The appendix is visualized and appears normal. There is no acute diverticulitis. Peritoneum: There is no intraperitoneal free air or abdominal ascites. Vasculature: The abdominal aorta is normal in course and caliber. Adenopathy: None. Pelvic viscera: The bladder is decompressed which likely explains the mild wall thickening. Skeletal structures: No destructive osseous lesions are seen. IMPRESSION: 1. No acute intra-abdominal or pelvic findings 2. No evidence of bowel obstruction. No evidence of free air 3. Normal appendix 4. No evidence of acute diverticulitis Electronically signed by: Ortiz Driscoll M.D. 12/08/2017 1:27 PM Dictated Date/Time: 12/08/2017 1:24 PM Laboratory Results 12/08/17 12:48 Red Blood Count 4.72, Mean Corpuscular Volume 83.1, Mean Corpuscular Hemoglobin 28.4, Mean Corpuscular Hemoglobin Concent 34.2, Mean Platelet Volume 8.8, Neutrophils (%) (Auto) 62.9, Lymphocytes (%) (Auto) 26.2, Monocytes (%) (Auto) 9.9, Eosinophils (%) (Auto) 0.3, Basophils (%) (Auto) 0.3, Neutrophils # (Auto) 4.78, Lymphocytes # (Auto) 1.99, Monocytes # (Auto) 0.75, Eosinophils # (Auto) 0.02, Basophils # (Auto) 0.02 12/08/17 11:45 Test 12/08/17 11:45 12/08/17 12:48 12/08/17 13:05 Anion Gap 9.0 mmol/L (3-11) Est Creatinine Clear Calc Drug Dose 161.7 ml/min Estimated GFR () 122.8 Estimated GFR (Non- 106.0 BUN/Creatinine Ratio 17.8 (10-20) Calcium Level 9.0 mg/dl (8.5-10.1) Total Bilirubin 1.0 mg/dl (0.2-1) Aspartate Amino Transf (AST/SGOT) 22 U/L (15-37) Alanine Aminotransferase (ALT/SGPT) 38 U/L (12-78) Alkaline Phosphatase 74 U/L (45-117) Total Protein 7.5 gm/dl (6.4-8.2) Albumin 3.7 gm/dl (3.4-5.0) Globulin 3.8 gm/dl (2.5-4.0) Albumin/Globulin Ratio 1.0 (0.9-2) Lipase 141 U/L (73-393) White Blood Count 7.59 K/uL (4.8-10.8) Red Blood Count 4.72 M/uL (4.7-6.1) Hemoglobin 13.4 g/dL (14.0-18.0) Hematocrit 39.2 % (42-52) Mean Corpuscular Volume 83.1 fL (80-100) Mean Corpuscular Hemoglobin 28.4 pg (25-34) Mean Corpuscular Hemoglobin Concent 34.2 g/dl (32-36) Platelet Count 259 K/uL (130-400) Mean Platelet Volume 8.8 fL (7.4-10.4) Neutrophils (%) (Auto) 62.9 % Lymphocytes (%) (Auto) 26.2 % Monocytes (%) (Auto) 9.9 % Eosinophils (%) (Auto) 0.3 % Basophils (%) (Auto) 0.3 % Neutrophils # (Auto) 4.78 K/uL (1.4-6.5) Lymphocytes # (Auto) 1.99 K/uL (1.2-3.4) Monocytes # (Auto) 0.75 K/uL (0.11-0.59) Eosinophils # (Auto) 0.02 K/uL (0-0.5) Basophils # (Auto) 0.02 K/uL (0-0.2) RDW Standard Deviation 41.4 fL (36.4-46.3) RDW Coefficient of Variation 13.7 % (11.5-14.5) Immature Granulocyte % (Auto) 0.4 % Immature Granulocyte # (Auto) 0.03 K/uL (0.00-0.02) Urine Color YELLOW Urine Appearance CLEAR (CLEAR) Urine pH 6.5 (4.5-7.5) Urine Specific [place] 1.016 (1.000-1.030) Urine Protein NEG (NEG) Urine Glucose (UA) 3+ (NEG) Urine Ketones TRACE (NEG) Urine Occult Blood NEG (NEG) Urine Nitrite NEG (NEG) Urine Bilirubin NEG (NEG) Urine Urobilinogen NEG (NEG) Urine Leukocyte Esterase NEG (NEG) Laboratory results reviewed by me. Medications Administered Medications (Trade) Dose Ordered Sig/Mario Alberto Route Start Time Stop Time Status Last Admin Dose Admin Sodium Chloride 2,000 ml @ 999 mls/hr Q2H1M STAT IV 12/08/17 11:50 12/08/17 13:50 DC 12/08/17 12:20 999 MLS/HR Ondansetron HCl (Zofran Inj) 4 mg NOW STAT IV 12/08/17 11:50 12/08/17 11:52 DC 12/08/17 12:20 4 MG ED Course 1140: The patient was evaluated in room C10. A complete history and physical exam was performed. 1150: Zofran 4 mg IV, NSS 2000 ml @ 999 mls/hr IV 1348: I reassessed the patient and he is doing well. Medical Decision Differential diagnoses includes appendicitis, diverticulitis, hernia, renal colic, musculoskeletal pain, viral illness, dehydration. There is no leukocytosis or concerning anemia. No significant electrolyte abnormality, kidney failure, hepatitis or pancreatitis. Urinalysis does not show infection. Abdominal and pelvis CT shows no evidence for appendicitis or bowel obstruction. No acute surgical process by CT evaluation. On exam, there was no peritonitis, the patient was not febrile or toxic. Patient received IV Zofran, IV saline, he feels improved. The patient presents with nausea and vomiting for 3 days. He did receive IV saline and has done well. He is slightly tachycardic. I talked him about this , he states that he is always tachycardic. Every time he has his pulse checked it is over 100. The patient is not having chest pain, he is not short of breath. He does not feel palpitations. I suspect the mild tachycardia is baseline for him. The patient will be discharged with Zofran for nausea, a bland and simple diet has been suggested. He will follow with his doctor as an outpatient and return here for any worsening symptoms or if not continuing to improve. His illness is likely viral. Medication Reconcilliation Current Medication List: was personally reviewed by me Blood Pressure Screening Patient's blood pressure: Elevated blood pressure Blood pressure disposition: Elevated BP felt to be situational Impression Primary Impression: RLQ abdominal pain Additional Impressions: Vomiting Dehydration Scribe Attestation The scribe's documentation has been prepared under my direction and personally reviewed by me in its entirety. I confirm that the note above accurately reflects all work, treatment, procedures, and medical decision making performed by me. Departure Information Dispostion Home / Self-Care Prescriptions Ondasetron Odt (ZOFRAN ODT) 4 Mg Tab 4-8 MG SL Q6H for Nausea, #12 TAB Prov: Jaydon Brewer M.D. 12/08/17 Referrals Velasquez Valencia M.D. (PCP) Forms Call Back Authorization, HOME CARE DOCUMENTATION FORM, IMPORTANT VISIT INFORMATION Patient Instructions My [facility] Additional Instructions zofran 1-2 tab every 6 hours for nausea fluids rest tylenol for pain bland diet---crackers, soup, toast, gatorade, rice. return if worsening Problem Qualifiers
[2017-12-08 12:26] LABS: ALBUMIN 3.7 gm/dl (3.4-5.0); CREATININE 0.85 mg/dl (0.60-1.40); POTASSIUM 3.9 mmol/L (3.5-5.1); TOTAL PROTEIN 7.5 gm/dl (6.4-8.2)
[2017-12-08 13:02] LABS: BASO % 0.3 %; BASO ABS # 0.02 K/uL (0-0.2); EOS % 0.3 %; EOS ABS # 0.02 K/uL (0-0.5); HEMATOCRIT 39.2 % (42-52); HEMOGLOBIN 13.4 g/dL (14.0-18.0); IG# 0.03 K/uL (0.00-0.02); LYMPH % 26.2 %; LYMPH ABS # 1.99 K/uL (1.2-3.4); MEAN CELL VOLUME 83.1 fL (80-100); MEAN CORPUSCULAR HEMOGLOBIN 28.4 pg (25-34); MEAN CORPUSCULAR HGB CONC 34.2 g/dl (32-36); MEAN PLATELET VOLUME 8.8 fL (7.4-10.4); MONO % 9.9 %; MONO ABS # 0.75 K/uL (0.11-0.59); NEUT % 62.9 %; NEUT ABS # 4.78 K/uL (1.4-6.5); PLATELET COUNT 259 K/uL (130-400); RED CELL DISTRIBUTION WIDTH CV 13.7 % (11.5-14.5); RED CELL DISTRIBUTION WIDTH SD 41.4 fL (36.4-46.3); WHITE BLOOD COUNT 7.59 K/uL (4.8-10.8)
[2017-12-08] MEDS ORDERED: HYDR50CA2 PO (13:07)
--- NOTE | 2017-12-08 13:28 | DIAGNOSTIC IMAGING REPORT ---
CT ABD/PELVIS IV CONTRAST ONLY CLINICAL HISTORY: Right lower quadrant abdominal pain COMPARISON STUDY: None. TECHNIQUE: Following the IV administration of 92 mL of Optiray-320, CT scan of the abdomen and pelvis was performed from the lung bases to the proximal femurs. Images are reviewed in the axial, sagittal, and coronal planes. IV contrast was administered without complication. A dose lowering technique was utilized adhering to the principles of ALARA. CT DOSE: 1727.01 mGy.cm FINDINGS: Lower chest: The heart is normal in size and configuration, without pericardial effusion. The lung bases and pleural spaces are clear. Liver: The contrast-enhanced liver is normal in size, contour, and attenuation. There is no intrahepatic biliary ductal dilatation. The hepatic veins and portal veins are patent. Gallbladder: Unremarkable. Spleen: Normal in size and attenuation. Pancreas: Unremarkable. Adrenal glands: Unremarkable. Kidneys: There is symmetric renal cortical enhancement. The kidneys are normal in size without hydronephrosis. Bowel: There are no transition zones indicate bowel obstruction. The appendix is visualized and appears normal. There is no acute diverticulitis. Peritoneum: There is no intraperitoneal free air or abdominal ascites. Vasculature: The abdominal aorta is normal in course and caliber. Adenopathy: None. Pelvic viscera: The bladder is decompressed which likely explains the mild wall thickening. Skeletal structures: No destructive osseous lesions are seen. IMPRESSION: 1. No acute intra-abdominal or pelvic findings 2. No evidence of bowel obstruction. No evidence of free air 3. Normal appendix 4. No evidence of acute diverticulitis Electronically signed by: Ortiz Driscoll M.D. 12/08/2017 1:27 PM Dictated Date/Time: 12/08/2017 1:24 PM
[2017-12-08] MEDS ORDERED: ONDA4TAB10 SL (14:53)
[2017-12-08 15:54] VITALS: BP 169/92; PULSE 117; O2SAT 97
== END 2017-12-08 15:57 | disposition home or self-care (01) ==
LOC: EDBD 11:21 → C.EDC 11:22
DX: R10.31 Right lower quadrant pain (principal); R11.2 Nausea with vomiting, unspecified; E86.0 Dehydration; F32.9 Major depressive disorder, single episode, unspecified; E11.49 Type 2 diabetes mellitus with other diabetic neurological complication; E11.43 Type 2 diabetes mellitus with diabetic autonomic (poly)neuropathy; I10 Essential (primary) hypertension; K58.9 Irritable bowel syndrome, unspecified; F79 Unspecified intellectual disabilities; F17.200 Nicotine dependence, unspecified, uncomplicated; F10.10 Alcohol abuse, uncomplicated; E66.3 Overweight; G47.33 Obstructive sleep apnea (adult) (pediatric); Z86.718 Personal history of other venous thrombosis and embolism; Z83.3 Family history of diabetes mellitus; Z82.49 Family history of ischemic heart disease and other diseases of the circulatory system; Z79.82 Long term (current) use of aspirin; Z79.4 Long term (current) use of insulin; Z88.1 Allergy status to other antibiotic agents; Z88.6 Allergy status to analgesic agent

== ENCOUNTER 2018-01-01 16:54 | Emergency (ER) | payer OTHER ==
[~2018-01-01] VITALS: Ht 190.5 cm; Wt 130.9 kg
[~2018-01-01 16:54] MED LIST changes: +HYDR50CA2 PO; -NRN400 PO; -NRN600 PO; +ONDA4TAB10 SL
[2018-01-01 17:00] VITALS: TEMP 37.1; Ht 190.5 cm; Wt 130.9 kg
[2018-01-01] MEDS ORDERED: SODIUM CHLORIDE 0.9% 1000ML 1,000 ML IV STA ×2 (17:44→19:09)
[2018-01-01] MEDS ORDERED: ACETAMINOPHEN 500 MG TAB PO STA (17:44)
[2018-01-01] MEDS ORDERED: ASPIRIN 81 MG CHEW PO STA (17:44)
[2018-01-01 17:53] LABS: HEMATOCRIT 44.2 % (42-52); HEMOGLOBIN 15.4 g/dL (14.0-18.0); MEAN CELL VOLUME 82.3 fL (80-100); MEAN CORPUSCULAR HEMOGLOBIN 28.7 pg (25-34); MEAN CORPUSCULAR HGB CONC 34.8 g/dl (32-36); MEAN PLATELET VOLUME 9.2 fL (7.4-10.4); PLATELET COUNT 237 K/uL (130-400); RED CELL DISTRIBUTION WIDTH CV 13.6 % (11.5-14.5); RED CELL DISTRIBUTION WIDTH SD 40.6 fL (36.4-46.3); WHITE BLOOD COUNT 7.75 K/uL (4.8-10.8)
--- NOTE | 2018-01-01 17:53 | EMERGENCY ROOM VISIT NOTE ---
History Report prepared by Marianela: Sharon Ferrell Under the Supervision of: Dr. Jaydon Brewer M.D. First contact with patient: 17:40 Chief Complaint: CHEST PAIN Stated Complaint: CHEST PAIN,HURT ALL OVER Nursing Triage Summary: Chest pain and body aches since yesterday. Pain worse with deep breaths. Also has dyspnea. Current smoker. CP 7/10. Denies cardiac hx. History of Present Illness The patient is a 42 year old male who presents to the Emergency Room with complaints of chest pain beginning 2 days ago. He rates the pain at a 7/10. The patient also reports having a dry mouth and sore muscles and joints. He denies having a cough, congestion, and fevers. The patient denies a history of heart attacks and states that he believes that he has had pneumonia before. He reports that he took Tylenol 6 hours prior to arrival but that it did not help his symptoms. He denies any recent trauma. The patient states that he is diabetic and that his sugars have been normal recently. He reports that he has been around his sister who has bronchitis and his nephews who have upper respiratory infections. The patient states that he takes Xarelto for a blood clot in his left leg and states that he takes aspirin daily. Source of History: patient Onset: 2 days ago Position: chest Symptom Intensity: rated at a 7/10 Associated Symptoms: No fevers, No cough Note: additional symptoms: dry mouth, sore muscles and joints Review of Systems See HPI for pertinent positives & negatives. A total of 10 systems reviewed and were otherwise negative. Past Medical & Surgical Medical Problems: (1) Depression (2) Depression (3) Diabetes mellitus with neurological manifestation (4) Diabetes mellitus, type 2 (5) DM type 2 (diabetes mellitus, type 2) (6) Foot abscess (7) Gastroparesis (8) History of DVT (deep vein thrombosis) (9) History of ventricular tachycardia (10) HTN (hypertension) (11) IBS (irritable bowel syndrome) (12) Intellectual disability (13) Intellectual disability (14) Nicotine dependence (15) Obesity (16) Obstructive sleep apnea Surgical Problems: (1) S/P left knee arthroscopy (2) S/P tonsillectomy (3) Status post incision and drainage Social History Problems: (1) Alcohol abuse Family History Cancer Diabetes mellitus MOTHER GRANDMOTHER UNCLE AUNT Gallbladder disease Heart disease Hypertension MOTHER FATHER Lung disease Social History Smoking Status: Current Every Day Smoker Alcohol Use: heavy Drug Use: none Marital Status: Housing Status: lives with family Current/Historical Medications Scheduled Aripiprazole (Aripiprazole), 10 MG PO HS Aspirin (Aspirin Ec), 81 MG PO DAILY Atorvastatin (Lipitor), 40 MG PO DAILY Duloxetine HCl (Duloxetine HCl), 60 MG PO DAILY Gabapentin (Gabapentin), 400 MG PO TID Insulin Aspart (Novolog Flexpen), 28 UNITS SQ AC Insulin Glargine (Lantus Solostar), 50 UNITS SQ BID Lisinopril (Lisinopril), 10 MG PO DAILY Metoprolol Succ (Toprol Xl) (Toprol-Xl), 12.5 MG PO BID Ondasetron Odt (Zofran Odt), 4-8 MG SL Q6H Pantoprazole (Protonix), 40 MG PO DAILY Rivaroxaban (Xarelto), 15 MG PO BID Scheduled PRN Acetaminophen (Tylenol), 1,000 MG PO Q6 PRN for Pain Hydroxyzine Pamoate (Vistaril), 1 CAP PO Q6H PRN for Anxiety Polyethylene Glycol 3350 (Miralax), 17 GM PO DAILY PRN for Constipation Tramadol (Ultram), 50 MG PO Q6H PRN for Pain Allergies Coded Allergies: Cephalosporins (Verified Allergy, Unknown, CECLOR- RXN UNKNOWN. A CHILD. WILLING TO TRY CEPHS AGAIN, 12/08/17) NSAIDs (Verified Adverse Reaction, Unknown, gastroparesis, kidney problems , 12/08/17) Physical Exam Vital Signs Date Time Temp Pulse Resp B/P (MAP) Pulse Ox O2 Delivery O2 Flow Rate FiO2 01/01/18 19:45 93 18 102/65 95 Room Air 01/01/18 18:14 100 20 129/70 94 01/01/18 17:46 114 01/01/18 17:00 37.1 123 22 116/71 95 Room Air 01/01/18 17:00 95 Room Air Physical Exam GENERAL: Patient is in no acute distress. HEENT: No acute trauma, normocephalic atraumatic, mucous membranes dry, no nasal congestion, no scleral icterus. NECK: No stridor, no adenopathy, no meningismus, trachea is midline. LUNGS: Clear to auscultation bilaterally, no wheeze, no rhonchi, breath sounds equal. HEART: Tachycardic with regular rhythm. No murmur. CHEST: Tender chest wall especially over the sternum. ABDOMEN: Soft, nontender, bowel sounds positive, no hernias, no peritonitis. EXTREMITIES: No cyanosis or edema, full range of motion of all the joints without pain or difficulty, no signs for acute trauma. NEUROLOGIC: Oriented x 3, no acute motor or sensory deficits, no focal weakness. SKIN: No rash, no jaundice, no diaphoresis. Medical Decision & Procedures ER Provider Diagnostic Interpretation: Radiology results as stated below per my review and radiologist interpretation: CHEST ONE VIEW PORTABLE CLINICAL HISTORY: Chest pain dyspnea COMPARISON STUDY: 10/30/2017 FINDINGS: The bones soft tissues and hemidiaphragms are normal. The cardiomediastinal silhouette is normal. The lungs are clear. The pulmonary vasculature is normal. Poor inspiratory volumes IMPRESSION: Negative chest. The above report was generated using voice recognition software. It may contain grammatical, syntax or spelling errors. Electronically signed by: Colt Sousa M.D. 01/01/2018 6:43 PM Dictated Date/Time: 01/01/2018 6:43 PM Laboratory Results 01/01/18 17:40 01/01/18 17:40 Test 01/01/18 17:40 01/01/18 17:49 01/01/18 18:30 Red Blood Count 5.37 M/uL (4.7-6.1) Mean Corpuscular Volume 82.3 fL (80-100) Mean Corpuscular Hemoglobin 28.7 pg (25-34) Mean Corpuscular Hemoglobin Concent 34.8 g/dl (32-36) RDW Standard Deviation 40.6 fL (36.4-46.3) RDW Coefficient of Variation 13.6 % (11.5-14.5) Mean Platelet Volume 9.2 fL (7.4-10.4) Prothrombin Time 9.4 SECONDS (9.0-12.0) Prothromb Time International Ratio 0.9 (0.9-1.1) Activated Partial Thromboplast Time 23.8 SECONDS (21.0-31.0) Partial Thromboplastin Ratio 0.9 Anion Gap 9.0 mmol/L (3-11) Est Creatinine Clear Calc Drug Dose 137.4 ml/min Estimated GFR () 105.6 Estimated GFR (Non- 91.1 BUN/Creatinine Ratio 20.0 (10-20) Calcium Level 9.0 mg/dl (8.5-10.1) Total Bilirubin 0.2 mg/dl (0.2-1) Aspartate Amino Transf (AST/SGOT) 16 U/L (15-37) Alanine Aminotransferase (ALT/SGPT) 33 U/L (12-78) Alkaline Phosphatase 93 U/L (45-117) Total Creatine Kinase 135 U/L (39-308) Total Protein 7.7 gm/dl (6.4-8.2) Albumin 3.5 gm/dl (3.4-5.0) Globulin 4.2 gm/dl (2.5-4.0) Albumin/Globulin Ratio 0.8 (0.9-2) Beta-Hydroxybutyric Acid mg/dL (0.2-2.81) Chemistry Specimen Hemolysis Bedside Troponin I < 0.030 ng/ml (0-0.045) Influenza Type A Antigen Neg for Influ A (NEG) Influenza Type B Antigen Neg for Influ B (NEG) Laboratory results reviewed by me. Medications Administered Medications (Trade) Dose Ordered Sig/Mario Alberto Route Start Time Stop Time Status Last Admin Dose Admin Sodium Chloride 1,000 ml @ 999 mls/hr Q1H1M STAT IV 01/01/18 17:44 01/01/18 18:44 DC 01/01/18 17:58 999 MLS/HR Acetaminophen (Tylenol Tab) 1,000 mg NOW STAT PO 01/01/18 17:44 01/01/18 17:47 DC 01/01/18 17:58 1,000 MG Aspirin (Aspirin Chew) 324 mg NOW STAT PO 01/01/18 17:44 18 17:47 DC 01/01/18 17:54 324 MG Insulin Human Regular (novoLIN-R U-100 PER UNIT) 10 units NOW STAT IV 01/01/18 18:19 01/01/18 18:20 DC 01/01/18 19:02 10 UNITS Sodium Chloride 1,000 ml @ 999 mls/hr Q1H1M STAT IV 01/01/18 19:09 01/01/18 20:09 DC 01/01/18 19:42 999 MLS/HR ECG Per My Interpretation Indication: chest pain Rate (beats per minute): 114 Rhythm: sinus tachycardia Findings: other (no PVC's, no ST elevation ) ED Course 1739: The patient was evaluated in room B12B. A complete history and physical exam was performed. 1743: Ordered Aspirin Chew 324 mg PO, Tylenol Tab 1,000 mg PO, Sodium Chloride 1 ,000 ml @ 999 mls/hr IV. 1818: Ordered Insulin Human Regular 10 units IV. 1918: Ordered Sodium Chloride 1,000 ml @ 999 mls/hr IV. 1947: A BSG is being done. 1951: The patient's blood sugar is 213. 1954: Reevaluated the patient. Discussed results and discharge instructions: He verbalized understanding and agreement. The patient is ready for discharge. Medical Decision The patient is a 42 year old male who presents to the ED with complaints of chest pain. Differential diagnoses considered include influenza or flu-like illness, dehydration, electrolyte imbalance, anemia, and pneumonia. There is no leukocytosis or concerning anemia. Renal panel testing shows a sugar over 300, no kidney failure. No hepatitis. Influenza testing was negative. EKG showed a sinus tachycardia, no acute ischemia. Cardiac enzyme testing 1 is not consistent with acute cardiac injury. Chest film does not show pneumonia, pneumothorax or CHF. The patient received IV saline, 2 L. He received oral aspirin and oral Tylenol. He received IV insulin. The patient feels improved. His heart rate is improved. His blood sugar is now in the 200s. The patient is being discharged. I suspect he was dehydrated, he seems better after fluids. His chest pain was reproducible on exam. He may have an early viral illness as he has had some sick exposures. He was encouraged to return here to see us if worsening. He was discharged home. Medication Reconcilliation Current Medication List: was personally reviewed by me Blood Pressure Screening Patient's blood pressure: Normal blood pressure Impression Primary Impression: Anterior chest wall pain Additional Impressions: Body aches Hyperglycemia Dehydration Scribe Attestation The scribe's documentation has been prepared under my direction and personally reviewed by me in its entirety. I confirm that the note above accurately reflects all work, treatment, procedures, and medical decision making performed by me. Departure Information Dispostion Home / Self-Care Referrals No Doctor, Assigned (PCP) Velasquez Valencia M.D. Forms Call Back Authorization, HOME CARE DOCUMENTATION FORM, IMPORTANT VISIT INFORMATION Patient Instructions My [facility] Additional Instructions stay well hydrated keep a good watch on your sugar see the chirag md this week return for worseing symptoms heart and lung testing today was ok Problem Qualifiers
[2018-01-01 18:06] LABS: INR 0.9 (0.9-1.1); PTT PATIENT 23.8 SECONDS (21.0-31.0)
[2018-01-01] MEDS ORDERED: NovoLIN-R INSULIN PER UNIT CHARGE IV STA (18:19)
[2018-01-01 18:20] LABS: ALBUMIN 3.5 gm/dl (3.4-5.0); POTASSIUM 3.8 mmol/L (3.5-5.1); TOTAL PROTEIN 7.7 gm/dl (6.4-8.2)
--- NOTE | 2018-01-01 18:45 | DIAGNOSTIC IMAGING REPORT ---
CHEST ONE VIEW PORTABLE CLINICAL HISTORY: Chest pain dyspnea COMPARISON STUDY: 10/30/2017 FINDINGS: The bones soft tissues and hemidiaphragms are normal. The cardiomediastinal silhouette is normal. The lungs are clear. The pulmonary vasculature is normal. Poor inspiratory volumes IMPRESSION: Negative chest. The above report was generated using voice recognition software. It may contain grammatical, syntax or spelling errors. Electronically signed by: Colt Sousa M.D. 01/01/2018 6:43 PM Dictated Date/Time: 01/01/2018 6:43 PM
[2018-01-01] MEDS ORDERED: TYLOTC500 PO (18:50)
[2018-01-01 19:33] LABS: INFLUENZA B ANTIGEN Neg for Influ B (NEG)
[2018-01-01 19:45] VITALS: BP 102/65; PULSE 93; O2SAT 95
[2018-01-01] MEDS ORDERED: NRN400 PO (21:00)
== END 2018-01-01 20:15 | disposition home or self-care (01) ==
LOC: C.EDB 16:56
DX: R07.89 Other chest pain (principal); R73.9 Hyperglycemia, unspecified; E86.0 Dehydration; F32.9 Major depressive disorder, single episode, unspecified; E11.9 Type 2 diabetes mellitus without complications; I10 Essential (primary) hypertension; E66.9 Obesity, unspecified; G47.33 Obstructive sleep apnea (adult) (pediatric); Z83.3 Family history of diabetes mellitus; Z82.49 Family history of ischemic heart disease and other diseases of the circulatory system; F17.200 Nicotine dependence, unspecified, uncomplicated; Z79.82 Long term (current) use of aspirin; Z79.4 Long term (current) use of insulin; Z88.6 Allergy status to analgesic agent; Z88.8 Allergy status to other drugs, medicaments and biological substances

== ENCOUNTER 2018-01-06 04:40 | Emergency (ER) | payer OTHER ==
[~2018-01-06] VITALS: Ht 190.5 cm; Wt 132.5 kg
[~2018-01-06 04:40] MED LIST changes: +NRN400 PO; +TYLOTC500 PO; -[UNRECOGNIZED DRUG - CODE] PO
[2018-01-06 04:55] VITALS: TEMP 36.7; Ht 190.5 cm; Wt 132.5 kg
--- NOTE | 2018-01-06 05:07 | EMERGENCY ROOM VISIT NOTE ---
History Report prepared by Marianela: Messi Luz Under the Supervision of: Dr. Robina Harry D.O. First contact with patient: 04:42 Chief Complaint: CHEST PAIN Stated Complaint: CHEST PAIN Nursing Triage Summary: 3 hours ago pt was laying in bed rolled from right side to left side and developed left shoulder pain that radiated up neck,pt took tylenol while at home,pain is worse with movement and palpation History of Present Illness The patient is a 42 year old male who presents to the Emergency Room with complaints of worsening tightness to his left shoulder beginning three hours ago. He currently rates his discomfort an 8/10 in severity. The patient states his tightness spreads to his chest where it is a 5/10 in severity. He reports his tightness starts in his elbow and spreads to his shoulder. The patient notes nothing makes it better, and rotating his shoulder makes it worse. He states he has had this feeling before when he pulled a muscle, but this feels slightly different. The patient reports he also has dry mouth. He notes he smokes a pack a day. He denies a history of a CVA or VT, trauma, fevers, chills , nausea, vomiting, shortness of breath, cough, calf pain. The patient notes a history of a DVT, diabetes, and HTN. Source of History: patient Onset: three hours ago Position: shoulder (left) Symptom Intensity: 8/10 Quality: other (tightness) Timing: worsening Modifying Factors (Worsening): other (rotation) Modifying Factors (Relieving): other (nothing) Associated Symptoms: No fevers, No chills, No cough, No SOB, No nausea, No vomiting Note: Associated symptoms: chest tightness Denies: calf pain Review of Systems See HPI for pertinent positives & negatives. A total of 10 systems reviewed and were otherwise negative. Past Medical & Surgical Medical Problems: (1) Depression (2) Depression (3) Diabetes mellitus with neurological manifestation (4) Diabetes mellitus, type 2 (5) DM type 2 (diabetes mellitus, type 2) (6) Foot abscess (7) Gastroparesis (8) History of DVT (deep vein thrombosis) (9) History of ventricular tachycardia (10) HTN (hypertension) (11) IBS (irritable bowel syndrome) (12) Intellectual disability (13) Intellectual disability (14) Nicotine dependence (15) Obesity (16) Obstructive sleep apnea Surgical Problems: (1) S/P left knee arthroscopy (2) S/P tonsillectomy (3) Status post incision and drainage Social History Problems: (1) Alcohol abuse Family History Cancer Diabetes mellitus MOTHER GRANDMOTHER UNCLE AUNT Gallbladder disease Heart disease Hypertension MOTHER FATHER Lung disease Social History Smoking Status: Current Every Day Smoker Alcohol Use: heavy Drug Use: none Marital Status: Housing Status: lives with family Current/Historical Medications Scheduled Aripiprazole (Aripiprazole), 10 MG PO HS Aspirin (Aspirin Ec), 81 MG PO DAILY Atorvastatin (Lipitor), 40 MG PO DAILY Duloxetine HCl (Duloxetine HCl), 60 MG PO DAILY Gabapentin (Gabapentin), 400 MG PO TID Insulin Aspart (Novolog Flexpen), 28 UNITS SQ AC Insulin Glargine (Lantus Solostar), 50 UNITS SQ BID Lisinopril (Lisinopril), 10 MG PO DAILY Metoprolol Succ (Toprol Xl) (Toprol-Xl), 12.5 MG PO BID Pantoprazole (Protonix), 40 MG PO DAILY Rivaroxaban (Xarelto), 15 MG PO BID Scheduled PRN Acetaminophen (Tylenol), 1,000 MG PO Q6 PRN for Pain Hydroxyzine Pamoate (Vistaril), 50 MG PO Q6H PRN for Anxiety Polyethylene Glycol 3350 (Miralax), 17 GM PO DAILY PRN for Constipation Tramadol (Ultram), 50 MG PO Q6H PRN for Pain Allergies Coded Allergies: Cephalosporins (Verified Allergy, Unknown, CECLOR- RXN UNKNOWN. A CHILD. WILLING TO TRY CEPHS AGAIN, 12/08/17) NSAIDs (Verified Adverse Reaction, Unknown, gastroparesis, kidney problems , 12/08/17) Physical Exam Vital Signs Date Time Temp Pulse Resp B/P (MAP) Pulse Ox O2 Delivery O2 Flow Rate FiO2 01/06/18 07:58 100 18 164/99 18 01/06/18 06:47 96 11 139/80 97 01/06/18 06:31 96 11 112/58 01/06/18 04:55 36.7 112 18 112/58 93 Room Air 01/06/18 04:55 93 Room Air 01/06/18 04:50 108 Physical Exam HEENT: Head - normocephalic and atraumatic Pupils are equal, round, and reactive to light. Extraocular eye muscles are intact, and sclera are anicteric. Nose - moist nasal mucosa without discharge. Mouth - moist buccal mucosa. Oropharynx is nonerythematous and there is no tonsillar exudate or edema noted. Neck: Supple; no JVD, nuchal rigidity, cervical lymphadenopathy, or auscultated bruits. Chest: Reproducible, left, anterior chest wall tenderness upon palpation. Heart: Regular rate and rhythm. There is a normal S1 and S2 with no murmurs, clicks, or gallops appreciated. Lungs: Clear to auscultation bilaterally with no wheezes, rales, or rhonchi. Abdomen: Soft, completely nontender, nondistended, with good bowel sounds. There are no palpable pulsatile masses or hepatosplenomegaly. There is no guarding, rigidity, or rebound noted. Extremities: No evidence of cyanosis, clubbing, or edema. There are easily palpable peripheral pulses. Significant pain with ROM to the left shoulder. Pain to palpation over the left shoulder. Skin: warm and dry with good turgor and no rashes. Medical Decision & Procedures ER Provider Diagnostic Interpretation: X-ray results as stated below per interpretation by me and the radiologist: CHEST ONE VIEW PORTABLE CLINICAL HISTORY: Atypical chest pain COMPARISON STUDY: 01/01/2018 FINDINGS: The cardiac and mediastinal contours are normal. There is no evidence of focal pulmonary consolidation. There is no evidence of failure. No pleural effusions are visualized.[ Slight interstitial prominence remains similar to the prior study, and likely relates to technical factors given the patient's body habitus. IMPRESSION: No active disease in the chest. Electronically signed by: Ortiz Driscoll M.D. 01/06/2018 7:16 AM Dictated Date/Time: 01/06/2018 7:15 AM Laboratory Results 01/06/18 04:44 01/06/18 04:44 Test 01/06/18 04:44 01/06/18 07:15 Red Blood Count 5.29 M/uL (4.7-6.1) Mean Corpuscular Volume 82.4 fL (80-100) Mean Corpuscular Hemoglobin 28.7 pg (25-34) Mean Corpuscular Hemoglobin Concent 34.9 g/dl (32-36) RDW Standard Deviation 40.9 fL (36.4-46.3) RDW Coefficient of Variation 13.6 % (11.5-14.5) Mean Platelet Volume 9.0 fL (7.4-10.4) Anion Gap 11.0 mmol/L (3-11) Est Creatinine Clear Calc Drug Dose 129.2 ml/min Estimated GFR () 97.3 Estimated GFR (Non- 84.0 BUN/Creatinine Ratio 7.8 (10-20) Calcium Level 8.8 mg/dl (8.5-10.1) Total Bilirubin 0.3 mg/dl (0.2-1) Direct Bilirubin < 0.1 mg/dl (0-0.2) Aspartate Amino Transf (AST/SGOT) 18 U/L (15-37) Alanine Aminotransferase (ALT/SGPT) 36 U/L (12-78) Alkaline Phosphatase 87 U/L (45-117) Total Protein 7.6 gm/dl (6.4-8.2) Albumin 3.5 gm/dl (3.4-5.0) Beta-Hydroxybutyric Acid 1.98 mg/dL (0.2-2.81) Troponin I < 0.015 ng/ml (0-0.045) Laboratory results per my review. ECG Per My Interpretation Indication: chest pain (tightness) Rate (beats per minute): 109 Rhythm: sinus tachycardia Findings: no acute ischemic change, no ectopy ED Course 0443: Past medical records reviewed. The patient was evaluated in room A09B by the medical student under my supervision. 0458: The patient was evaluated in room A09B by me. A complete history and physical examination were performed. Nursing notes were reviewed. IV lock was established and labs were drawn as above. When I attempted to evaluate the patient he was sound asleep. He had a 12-lead EKG obtained. He went for a chest x-ray. I offered the patient some Tylenol but he had taken some prior to coming to the hospital. 0605: upon repeat examination, the patient was sleeping again. I woke him and he stated that his pain seems to be mostly in his left shoulder. We did repeat a second troponin 0757: Upon reevaluation, the patient's second troponin was negative. I discussed findings and results with him. He verbalized agreement of the treatment plan. The patient was discharged home. Medical Decision The patient is a 42 year old male who presents to the ED with left shoulder tightness that radiates to his chest. Differential diagnosis includes VT, PE, costochondritis, pneumonia. Lab results show: no leukocytosis, stable H&H, glucose of 551, negative BHA, troponin <0.015, normal renal function. Second troponin was <0.015. This is a 42-year-old male patient who presents to the emergency department with left-sided chest discomfort and left shoulder pain both of which are reproducible. The patient has had multiple visits to the emergency department in the past for similar symptoms. The patient's discomfort seemed to subside on its own. The patient was noted to have significant hyperglycemia with a blood sugar greater than 500. He does not appear to be acidotic or in DKA. The patient states that he takes 28 units of insulin with each meal. I have asked him to keep a close log of his blood sugars over the next couple of days and follow-up with his PCP. He may warrant an increase in his insulin. Medication Reconcilliation Current Medication List: was personally reviewed by me Blood Pressure Screening Patient's blood pressure: Normal blood pressure Blood pressure disposition: Did not require urgent referral Impression Primary Impression: Left sided chest pain Additional Impression: Hyperglycemia Scribe Attestation The scribe's documentation has been prepared under my direction and personally reviewed by me in its entirety. I confirm that the note above accurately reflects all work, treatment, procedures, and medical decision making performed by me. Departure Information Dispostion Home / Self-Care Referrals Velasquez Valencia M.D. (PCP) Forms Call Back Authorization, HOME CARE DOCUMENTATION FORM, IMPORTANT VISIT INFORMATION Patient Instructions ED Chest Pain Atypical Unkn Cause, My [facility] Additional Instructions You will need to watch our blood sugar closely. Dose insulin. Follow up with doc if sugars remain high. Rest. Use tylenol for left shoulder pain Problem Qualifiers
[2018-01-06 05:19] LABS: HEMATOCRIT 43.6 % (42-52); HEMOGLOBIN 15.2 g/dL (14.0-18.0); MEAN CELL VOLUME 82.4 fL (80-100); MEAN CORPUSCULAR HEMOGLOBIN 28.7 pg (25-34); MEAN CORPUSCULAR HGB CONC 34.9 g/dl (32-36); PLATELET COUNT 228 K/uL (130-400); RED CELL DISTRIBUTION WIDTH CV 13.6 % (11.5-14.5); RED CELL DISTRIBUTION WIDTH SD 40.9 fL (36.4-46.3); WHITE BLOOD COUNT 6.93 K/uL (4.8-10.8)
[2018-01-06] MEDS ORDERED: ACETAMINOPHEN 500 MG TAB PO STA (05:42)
[2018-01-06 05:50] LABS: ALKALINE PHOSPHATASE 87 U/L (45-117); ALT/SGPT 36 U/L (12-78); BLOOD UREA NITROGEN 8 mg/dl (7-18); CREATININE 1.07 mg/dl (0.60-1.40); TOTAL PROTEIN 7.6 gm/dl (6.4-8.2)
[2018-01-06 06:01] LABS: ALBUMIN 3.5 gm/dl (3.4-5.0); AST/SGOT 18 U/L (15-37); CALCIUM 8.8 mg/dl (8.5-10.1); CARBON DIOXIDE 25 mmol/L (21-32); GLUCOSE 551 mg/dl (70-99); SODIUM 132 mmol/L (136-145)
--- NOTE | 2018-01-06 07:17 | DIAGNOSTIC IMAGING REPORT ---
CHEST ONE VIEW PORTABLE CLINICAL HISTORY: Atypical chest pain COMPARISON STUDY: 01/01/2018 FINDINGS: The cardiac and mediastinal contours are normal. There is no evidence of focal pulmonary consolidation. There is no evidence of failure. No pleural effusions are visualized.[ Slight interstitial prominence remains similar to the prior study, and likely relates to technical factors given the patient's body habitus. IMPRESSION: No active disease in the chest. Electronically signed by: Ortiz Driscoll M.D. 01/06/2018 7:16 AM Dictated Date/Time: 01/06/2018 7:15 AM
[2018-01-06 07:58] VITALS: BP 164/99; PULSE 100; O2SAT 18
== END 2018-01-06 08:07 | disposition home or self-care (01) ==
LOC: EDBD 04:40 → C.EDA 04:41
DX: R07.9 Chest pain, unspecified (principal); R73.9 Hyperglycemia, unspecified; E11.9 Type 2 diabetes mellitus without complications; I10 Essential (primary) hypertension; F79 Unspecified intellectual disabilities; E66.9 Obesity, unspecified; G47.30 Sleep apnea, unspecified; Z83.3 Family history of diabetes mellitus; Z82.49 Family history of ischemic heart disease and other diseases of the circulatory system; F17.200 Nicotine dependence, unspecified, uncomplicated; Z79.82 Long term (current) use of aspirin; Z79.4 Long term (current) use of insulin; Z88.8 Allergy status to other drugs, medicaments and biological substances

== ENCOUNTER 2018-05-04 21:25 | Inpatient (IN) | payer OTHER ==
[~2018-05-04] VITALS: Ht 190.5 cm; Wt 127.6 kg
[~2018-05-04 21:25] MED LIST changes: +CIPR1TAB10 PO; -ONDA4TAB10 SL
[2018-05-04] MEDS ORDERED: SODIUM CHLORIDE 0.9% 1000ML 1,000 ML IV STA (22:06)
[2018-05-04] MEDS ORDERED: DAPTOMYCIN IV STA (22:14)
[2018-05-04] MEDS ORDERED: SODIUM CHLORIDE 0.9% IV STA (22:14)
[2018-05-04] MEDS ORDERED: IMIPENEM/CILASTATIN IV 500 MG in DEXTROSE 5% 100ML 100 ML IV STA (22:14)
[2018-05-04 22:40] LABS: BASO % 0.6 %; BASO ABS # 0.06 K/uL (0-0.2); EOS % 2.8 %; EOS ABS # 0.27 K/uL (0-0.5); HEMATOCRIT 42.7 % (42-52); HEMOGLOBIN 14.9 g/dL (14.0-18.0); IG# 0.19 K/uL (0.00-0.02); LYMPH % 23.6 %; LYMPH ABS # 2.27 K/uL (1.2-3.4); MEAN CELL VOLUME 83.7 fL (80-100); MEAN CORPUSCULAR HEMOGLOBIN 29.2 pg (25-34); MEAN CORPUSCULAR HGB CONC 34.9 g/dl (32-36); MEAN PLATELET VOLUME 9.6 fL (7.4-10.4); MONO % 9.7 %; MONO ABS # 0.93 K/uL (0.11-0.59); NEUT % 61.3 %; NEUT ABS # 5.89 K/uL (1.4-6.5); PLATELET COUNT 237 K/uL (130-400); RED CELL DISTRIBUTION WIDTH CV 12.9 % (11.5-14.5); RED CELL DISTRIBUTION WIDTH SD 38.8 fL (36.4-46.3); WHITE BLOOD COUNT 9.61 K/uL (4.8-10.8)
--- NOTE | 2018-05-04 22:46 | DIAGNOSTIC IMAGING REPORT ---
CHEST ONE VIEW PORTABLE CLINICAL HISTORY: cp dyspnea COMPARISON STUDY: 01/06/2018 FINDINGS: The bones soft tissues and hemidiaphragms are normal. The cardiomediastinal silhouette is normal. The lungs are clear. The pulmonary vasculature is normal. IMPRESSION: Negative chest. The above report was generated using voice recognition software. It may contain grammatical, syntax or spelling errors. Electronically signed by: Colt Sousa M.D. 05/04/2018 10:45 PM Dictated Date/Time: 05/04/2018 10:44 PM
[2018-05-04 22:48] LABS: INR 0.9 (0.9-1.1); PTT PATIENT 25.5 SECONDS (21.0-31.0)
[2018-05-04 23:02] LABS: ALBUMIN 3.3 gm/dl (3.4-5.0); ALKALINE PHOSPHATASE 91 U/L (45-117); ALT/SGPT 24 U/L (12-78); AST/SGOT 15 U/L (15-37); BLOOD UREA NITROGEN 13 mg/dl (7-18); CARBON DIOXIDE 25 mmol/L (21-32); CREATININE 0.86 mg/dl (0.60-1.40); GLUCOSE 327 mg/dl (70-99); POTASSIUM 3.8 mmol/L (3.5-5.1); SODIUM 132 mmol/L (136-145); TOTAL PROTEIN 7.8 gm/dl (6.4-8.2)
[2018-05-04] MEDS ORDERED: MoRPHine SULFATE 4 MG/ML 1 ML CARP\\VIAL IV STA (23:33)
[2018-05-04] MEDS ORDERED: ONDANSETRON INJ 2 MG/ML 2 ML VIAL IV STA (23:33)
[2018-05-05] VITALS (7 sets, daily range): BP systolic 106–154; BP diastolic 68–94; PULSE 91–105; TEMP 36.3–37.1; O2SAT 91–95; BMI 35.2
[2018-05-05] MEDS ORDERED: INSULIN GLARGINE SOLOSTAR 100 UNITS/ML 3 ML PEN SQ ONE (00:41)
[2018-05-05] MEDS ORDERED: NITROGLYCERIN 0.4 MG SL PER TAB CHARGE SL STA (00:49)
[2018-05-05] MEDS ORDERED: GLUCOSE 10 TABS/TUBE PO PRN (02:00)
[2018-05-05] MEDS ORDERED: CARBOHYDRATES FOR HYPOGLYCEMIA PO PRN (02:00)
[2018-05-05] MEDS ORDERED: GLUCOSE 40% GEL 15 GM TUBE PO PRN (02:00)
[2018-05-05] MEDS ORDERED: hydrOXYzine HCL 25 MG TAB PO PRN (02:00)
[2018-05-05] MEDS ORDERED: DEXTROSE 50% 50 ML SYR IV PRN (02:00)
[2018-05-05] MEDS ORDERED: ACETAMINOPHEN 325 MG TAB PO PRN (02:00)
[2018-05-05] MEDS ORDERED: PROCHLORPERAZINE INJ 5 MG in SYRINGE 4 ML IV PRN (02:00)
[2018-05-05] MEDS ORDERED: GLUCAGON FOR INJ 1 MG VIAL SQ PRN (02:00)
[2018-05-05] MEDS ORDERED: POLYETHYLENE (MIRALAX) 17 GM PACK PO PRN (02:00)
[2018-05-05] MEDS ORDERED: LISINOPRIL 10 MG TAB PO ONE (04:45)
[2018-05-05] MEDS ORDERED: INSULIN ASPART 100 UNITS/ML 3 ML PEN SC STA (04:45)
[2018-05-05] MEDS ORDERED: NSS + 20MEQ KCL 1000ML 1,000 ML IV ONE (05:00)
--- NOTE | 2018-05-05 05:07 | EMERGENCY ROOM VISIT NOTE ---
History First contact with patient: 21:56 Chief Complaint: LEG PAIN,LEG INJURY Stated Complaint: CHEST PAIN, DIABETIC FOOT INFECTION History of Present Illness The patient is a 42 year old male who presents to the Emergency Room with complaints of increasing right foot pain and swelling that is going up the leg with chest pain or shortness of breath who decided to quit taking his medications as he did not want to take any for the past 2 months to was on blood thinners and diabetic medications. Patient was seen here a few days ago for spear to the bottom of his feet from hot sand. Patient states the pain and swelling has increased. His blood sugars been around 200. Tetanus is current. Patient denies fevers, abdominal pain, vomiting, diarrhea, weakness. He is tolerating p.o. fluids and food. Review of Systems An 10 system review of systems was completed with positives and pertinent negatives listed in the HPI. Past Medical/Surgical History Medical Problems: (1) Depression (2) Depression (3) Diabetes mellitus with neurological manifestation (4) Diabetes mellitus, type 2 (5) Diabetic foot infection (6) DM type 2 (diabetes mellitus, type 2) (7) Foot abscess (8) Gastroparesis (9) History of DVT (deep vein thrombosis) (10) History of ventricular tachycardia (11) HTN (hypertension) (12) IBS (irritable bowel syndrome) (13) Intellectual disability (14) Intellectual disability (15) Nicotine dependence (16) Obesity (17) Obstructive sleep apnea Surgical Problems: (1) S/P left knee arthroscopy (2) S/P tonsillectomy (3) Status post incision and drainage Social History Problems: (1) Alcohol abuse Family History Cancer Diabetes mellitus MOTHER GRANDMOTHER UNCLE AUNT Gallbladder disease Heart disease Hypertension MOTHER FATHER Lung disease Social History Smoking Status: Current Every Day Smoker Alcohol Use: heavy Drug Use: none Marital Status: Housing Status: lives with family Current/Historical Medications Scheduled Aripiprazole (Aripiprazole), 10 MG PO HS Aspirin (Aspirin Ec), 81 MG PO DAILY Atorvastatin (Lipitor), 40 MG PO DAILY Ciprofloxacin Hcl (Cipro), 500 MG PO BID Duloxetine HCl (Duloxetine HCl), 60 MG PO DAILY Gabapentin (Gabapentin), 400 MG PO TID Insulin Aspart (Novolog Flexpen), 28 UNITS SQ AC Insulin Glargine (Lantus Solostar), 50 UNITS SQ BID Lisinopril (Lisinopril), 10 MG PO DAILY Metoprolol Succ (Toprol Xl) (Toprol-Xl), 12.5 MG PO BID Pantoprazole (Protonix), 40 MG PO DAILY Rivaroxaban (Xarelto), 15 MG PO BID Scheduled PRN Acetaminophen (Tylenol), 1,000 MG PO Q6H PRN for Pain Hydroxyzine Pamoate (Vistaril), 50 MG PO Q6H PRN for Anxiety Polyethylene Glycol 3350 (Miralax), 17 GM PO DAILY PRN for Constipation Tramadol (Ultram), 50 MG PO Q6H PRN for Pain Physical Exam Vital Signs Date Time Temp Pulse Resp B/P (MAP) Pulse Ox O2 Delivery O2 Flow Rate FiO2 05/05/18 00:05 36.8 90 18 160/94 96 Room Air 05/05/18 00:00 94 Room Air 05/04/18 21:32 36.7 114 18 128/67 94 Room Air Physical Exam VITALS: Vitals are noted on the nurse's note and reviewed by myself. Vital signs stable. GENERAL: White male, in no acute distress, nondiaphoretic, well-developed well- nourished. SKIN: Right foot to the plantar aspect of the forefoot with top layer skin gone with erythema and drainage tracking up to the midshin concerns for cellulitis. The rest of the skin was without rashes, erythema, edema, or bruising. There is no tenting of the skin. Capillary reflex less than 2 seconds. HEAD: Normocephalic atraumatic. EARS: External auditory canals clear, tympanic membranes pearly luque without erythema or effusion bilaterally. EYES: Pupils equal round and reactive to light and accommodation. Conjunctivae without injection, sclerae without icterus. Extraocular movements intact. NOSE: Patent, turbinates without inflammation or discharge. No sinus tenderness. MOUTH: Mucous membranes moist. Pharynx without erythema or exudate. Uvula midline. Airway patent. Tongue does not deviate. NECK: Supple without nuchal rigidity. No lymphadenopathy. No thyromegaly. Cervical spine is nontender. No JVD. HEART: Regular rate and rhythm LUNGS: Clear to auscultation bilaterally without wheezes, rales or rhonchi. No retractions or accessory muscle use. ABDOMEN: Positive bowel sounds x 4. Normal tympanic percussion. Soft, nontender, without masses or organomegaly. Romero sign negative. No guarding or rebound tenderness. No CVA tenderness MUSCULOSKELETAL: No muscle atrophy, or edema noted. Right foot to the plantar aspect of the forefoot with top layer skin gone with erythema and drainage tracking up to the midshin concerns for cellulitis. Left foot on the plantar aspect with healing burn. Minimal surrounding erythema. No lymphangitis. NEURO: Patient was alert and oriented to person place and time. Normal sensation to light and sharp touch. No focal neurological deficits. Medical Decision & Procedures Laboratory Results 05/04/18 22:20 Test 05/04/18 22:20 05/04/18 22:24 05/04/18 22:28 05/04/18 23:55 RDW Standard Deviation 38.8 fL (36.4-46.3) RDW Coefficient of Variation 12.9 % (11.5-14.5) White Blood Count 9.61 K/uL (4.8-10.8) Red Blood Count 5.10 M/uL (4.7-6.1) Hemoglobin 14.9 g/dL (14.0-18.0) Hematocrit 42.7 % (42-52) Mean Corpuscular Volume 83.7 fL (80-100) Mean Corpuscular Hemoglobin 29.2 pg (25-34) Mean Corpuscular Hemoglobin Concent 34.9 g/dl (32-36) Platelet Count 237 K/uL (130-400) Mean Platelet Volume 9.6 fL (7.4-10.4) Neutrophils (%) (Auto) 61.3 % Lymphocytes (%) (Auto) 23.6 % Monocytes (%) (Auto) 9.7 % Eosinophils (%) (Auto) 2.8 % Basophils (%) (Auto) 0.6 % Neutrophils # (Auto) 5.89 K/uL (1.4-6.5) Lymphocytes # (Auto) 2.27 K/uL (1.2-3.4) Monocytes # (Auto) 0.93 K/uL (0.11-0.59) Eosinophils # (Auto) 0.27 K/uL (0-0.5) Basophils # (Auto) 0.06 K/uL (0-0.2) Immature Granulocyte % (Auto) 2.0 % Immature Granulocyte # (Auto) 0.19 K/uL (0.00-0.02) Prothrombin Time 9.4 SECONDS (9.0-12.0) Prothromb Time International Ratio 0.9 (0.9-1.1) Activated Partial Thromboplast Time 25.5 SECONDS (21.0-31.0) Partial Thromboplastin Ratio 1.0 Anion Gap 10.0 mmol/L (3-11) Est Creatinine Clear Calc Drug Dose 157.9 ml/min Estimated GFR () 122.2 Estimated GFR (Non- 105.5 BUN/Creatinine Ratio 15.5 (10-20) Calcium Level 9.0 mg/dl (8.5-10.1) Magnesium Level 2.1 mg/dl (1.8-2.4) Total Bilirubin 0.4 mg/dl (0.2-1) Aspartate Amino Transf (AST/SGOT) 15 U/L (15-37) Alanine Aminotransferase (ALT/SGPT) 24 U/L (12-78) Alkaline Phosphatase 91 U/L (45-117) Total Creatine Kinase 93 U/L (39-308) Total Protein 7.8 gm/dl (6.4-8.2) Albumin 3.3 gm/dl (3.4-5.0) Globulin 4.5 gm/dl (2.5-4.0) Albumin/Globulin Ratio 0.7 (0.9-2) Beta-Hydroxybutyric Acid 7.53 mg/dL (0.2-2.81) Thyroid Stimulating Hormone (TSH) 1.060 uIu/ml (0.300-4.500) Bedside Lactic Acid Venous 1.18 mmol/L (0.90-1.70) Bedside D-Dimer 321 ng/mlFEU (0-450) Bedside Troponin I < 0.030 ng/ml (0-0.045) Urine Color YELLOW Urine Appearance CLEAR (CLEAR) Urine pH 5.5 (4.5-7.5) Urine Specific [place] 1.043 (1.000-1.030) Urine Protein NEG (NEG) Urine Glucose (UA) 3+ (NEG) Urine Ketones 2+ (NEG) Urine Occult Blood TRACE (NEG) Urine Nitrite NEG (NEG) Urine Bilirubin NEG (NEG) Urine Urobilinogen NEG (NEG) Urine Leukocyte Esterase NEG (NEG) Urine WBC (Auto) 0 /hpf (0-5) Urine RBC (Auto) 0-4 /hpf (0-4) Urine Hyaline Casts (Auto) 0 /lpf (0-5) Urine Epithelial Cells (Auto) 0-5 /lpf (0-5) Urine Bacteria (Auto) NEG (NEG) Medications Administered Medications (Trade) Dose Ordered Sig/Mario Alberto Route Start Time Stop Time Status Last Admin Dose Admin Sodium Chloride 1,000 ml @ 999 mls/hr Q1H1M STAT IV 05/04/18 22:06 05/04/18 23:06 DC 05/04/18 22:37 999 MLS/HR Daptomycin 770 mg/ Sodium Chloride 65.4 ml @ 100 mls/hr NOW STAT IV 05/04/18 22:14 05/04/18 22:53 DC 05/04/18 23:59 100 MLS/HR Imipenem/ Cilastatin Sodium 500 mg/Dextrose 110 ml @ 100 mls/hr NOW STAT IV 05/04/18 22:14 05/04/18 23:19 DC 05/04/18 23:59 100 MLS/HR Morphine Sulfate (MoRPHine SULFATE INJ) 4 mg NOW STAT IV 05/04/18 23:33 05/04/18 23:34 DC 05/05/18 00:00 4 MG Ondansetron HCl (Zofran Inj) 4 mg NOW STAT IV 05/04/18 23:33 05/04/18 23:34 DC 05/04/18 23:59 4 MG Insulin Glargine (Lantus Solostar Pen) 55 units 0041 ONCE SQ 05/05/18 00:41 05/05/18 00:52 DC 05/05/18 01:04 55 UNITS Nitroglycerin (Nitrostat Tab) 0.4 mg NOW STAT SL 05/05/18 00:49 05/05/18 00:52 DC 05/05/18 01:03 0.4 MG ED Course Prior records reviewed and summarized as above. Triage Nursing notes reviewed. The patient's history was concerning for swelling and redness of the skin with chest pain and dysphagia who stopped all medications. Differential diagnosis: Etiologies such as cellulitis, abscess, MRSA infection, DVT, necrotizing fasciitis, dermatitis, drug eruption,angina, MN, pericarditis, myocarditis, aortic dissection, pleurisy, pneumothorax, PE, pneumonia, pneumomediastinum, esophagitis, esophageal spasm, GERD, perforated esophagus, perforated duodenal ulcer, pancreatitis, cholecystitis, costochondritis, musculoskeletal, bronchitis , URI,. As well as others were entertained.. Physical examination: Patient is alert, oriented and tolerating fluids ER treatment provided: Imipenem, daptomycin, IV fluids On reassessment the patient felt better. Diagnostics interpreted by me: The labs revealed hyperglycemia without DKA. Negative troponin. Negative d- dimer Imaging studies: Ultrasound negative for DVT CHEST ONE VIEW PORTABLE CLINICAL HISTORY: cp dyspnea COMPARISON STUDY: 01/06/2018 FINDINGS: The bones soft tissues and hemidiaphragms are normal. The cardiomediastinal silhouette is normal. The lungs are clear. The pulmonary vasculature is normal. IMPRESSION: Negative chest. HEART SCORE: Hx: high/mod/low suspicion: 0 ECG: ST depression/nonspecific changes/normal: 0 Age: Greater than 65/45-64/less than 45: 0 Risk factors: (Hypertension, hyperlipidemia, diabetes, coronary disease, tobacco use, cocaine use): 3 Troponin: Greater than 2 times normal limits/1-2 times normal limits/normal: 0 Total: 3 Wells Score Symptoms of DVT 3pt: 3 Alternative diagnoses better explains illness 3pts: 0 Tachycardia greater than 100 1.5 pts 0 Immobilization greater than 3 days or surgery in the previous 4 weeks 1.5 pts: 0 Prior history of DVT or PE 1.5 pts: 0 Presence of hemoptysis 1pt: 0 Presence of malignancy 1pt: 0 (Score greater than 6 is high probability, score 2-6 moderate probability, score less than 2 low probability) Total: 3 The pulmonary embolism rule out criteria (PERC rule) Age <50 years 0 Heart rate <100 bpm 0 Oxyhemoglobin saturation =95% 0 No hemoptysis 0 No estrogen use 0 No prior DVT or PE yes No unilateral leg swelling yes No surgery/trauma requiring hospitalization within the prior four weeks 0 (0 low risk) Total: 2 yes's Consultation: A consultation was placed with Dr. Brown, hospitalist. The case was discussed and diagnostics were reviewed. The patient was evaluated in the ER for further treatment. This appears to be isolated cellulitis from a infected diabetic foot wound that has progressed. Patient also has chest pain and dyspnea. Patient's heart score is low. His well score was moderate probability and PERC score had 2 yeses so d-dimer was ordered and this is negative. Patient had unchanged EKG. Recent cardiac workup that was unremarkable. This does not seem cardiac in etiology. This seems more consistent with the infected diabetic foot that has progressed who is been on antibiotics. Patient will be evaluated by medicine for admission. Patient had no DVT on ultrasound. By the evaluation outlined above emergent etiologies such as abscess, necrotizing fasciitis, DVT, as well as others were deemed relatively unlikely. The pt informed about the findings as listed above. All questions were answered and pleased with the treatment. Case reviewed with my attending The chart was completed utilizing [employer] voice recognition software. Grammatical errors, random word insertions, pronoun errors, and incomplete sentences are an occassional consequence of this system due to software limitations, ambient noise, and hardware issues. Any formal questions or concerns about the content, text, or information contained within the body of this dictation should be directly addressed to the physician press assistant and feeder for clarification. Medical Decision As above Medication Reconcilliation Current Medication List: was personally reviewed by me Blood Pressure Screening Patient's blood pressure: Normal blood pressure Impression Primary Impression: Diabetic foot infection Additional Impression: Diabetes mellitus, type 2 Departure Information Dispostion Still a Patient Condition FAIR Referrals Velasquez Valencia M.D. (PCP) Forms HOME CARE DOCUMENTATION FORM, IMPORTANT VISIT INFORMATION Patient Instructions My [facility] Problem Qualifiers
[2018-05-05 05:38] LABS: BASO % 0.5 %; BASO ABS # 0.04 K/uL (0-0.2); EOS % 4.1 %; EOS ABS # 0.32 K/uL (0-0.5); HEMATOCRIT 40.4 % (42-52); HEMOGLOBIN 13.8 g/dL (14.0-18.0); IG# 0.21 K/uL (0.00-0.02); LYMPH % 27.6 %; LYMPH ABS # 2.18 K/uL (1.2-3.4); MEAN CELL VOLUME 83.6 fL (80-100); MEAN CORPUSCULAR HEMOGLOBIN 28.6 pg (25-34); MEAN CORPUSCULAR HGB CONC 34.2 g/dl (32-36); MEAN PLATELET VOLUME 9.7 fL (7.4-10.4); MONO % 10.4 %; MONO ABS # 0.82 K/uL (0.11-0.59); NEUT % 54.7 %; NEUT ABS # 4.33 K/uL (1.4-6.5); PLATELET COUNT 207 K/uL (130-400); RED CELL DISTRIBUTION WIDTH CV 12.9 % (11.5-14.5); RED CELL DISTRIBUTION WIDTH SD 39.3 fL (36.4-46.3)
[2018-05-05] MEDS: DOXYCYCLINE IV 100 MG in DEXTROSE 5% 100ML 100 ML IV SCH ×2 (06:14→18:27)
[2018-05-05] MEDS: ENOXAPARIN 40 MG/0.4 ML SYR SC SCH (06:15)
--- NOTE | 2018-05-05 06:26 | DIAGNOSTIC IMAGING REPORT ---
BILATERAL LOWER EXTREMITY VENOUS DOPPLER CLINICAL HISTORY: Leg pain and swelling. COMPARISON STUDY: Bilateral lower extremity venous Doppler October 22, 2017. TECHNIQUE: Sonography of the deep venous system of the bilateral lower extremities was performed. Compression and augmentation were evaluated. FINDINGS: The bilateral common femoral, superficial femoral and popliteal veins were compressible. Augmentation was normal. Flow was shown within the deep calf vessels. IMPRESSION: No evidence of deep venous thrombus within the bilateral lower extremities. Electronically signed by: Serge Ghotra M.D. 05/05/2018 6:25 AM Dictated Date/Time: 05/05/2018 6:24 AM
[2018-05-05 06:41] LABS: HEMOGLOBIN A1C 12.3 % (4.5-5.6)
[2018-05-05] MEDS: NICOTINE 14 MG/24 HR TDSY TD SCH (08:31)
[2018-05-05] MEDS: CEFEPIME IV 2,000 MG in SYRINGE 7.5 ML IV SCH ×2 (08:32→20:11)
[2018-05-05] MEDS: DULOXETINE HCL 60 MG CAP PO SCH (08:33)
[2018-05-05] MEDS: GABAPENTIN 400 MG CAP PO SCH ×3 (08:33→20:11)
[2018-05-05] MEDS: PANTOprazole SOD 40 MG TAB PO SCH (08:33)
[2018-05-05] MEDS: ASPIRIN 81 MG ECTAB PO SCH (08:33)
[2018-05-05] MEDS: METOPROLOL SUCC 25MG EXT REL TAB PO SCH ×2 (08:34→20:12)
[2018-05-05] MEDS: ATORVASTATIN 40 MG TAB PO SCH (08:34)
--- NOTE | 2018-05-05 08:42 | HISTORY & PHYSICAL EXAMINATION ---
DATE OF ADMISSION: 05/05/2018 PRIMARY CARE DOCTOR: Dr. Valencia. CHIEF COMPLAINT: Foot wounds. HISTORY OF PRESENT ILLNESS: History obtained from the patient and records. Medical history significant for hypertension, hyperlipidemia, gastroparesis, DM2 insulin requiring, mood disorder, ongoing tobacco abuse, history of left lower extremity DVT previously on Xarelto Rx. Recent confinement October 2017 for atypical chest pain. No inducible ischemia on stress echo. Three months ago, patient stopped taking all his medications for unclear reasons. Last week, the patient was at the hood, was walking on his bare feet. Patient later on noted some pain on the soles of both feet, noted some blood in the floor, lot of blisters. Patient brought by EMS to ER. Multiple blisters noted on both feet. Some broken. Wound clean as per ER provider note. Patient prescribed Cipro. Worsening of R pedal wound at home, pain on the right leg. No fever, no chills. Patient brought to ER by family. Received Daptomycin, Imipenem in the ER for foot infection. At the ER, the patient had a left substernal pain, nonpleuritic with some shortness of breath, achy. No relief with nitroglycerin. MEDICAL HISTORY: As above. SURGERIES: He has had knee surgery, tonsillectomy, foot surgery. HOME MEDICATIONS: None currently. He was previously on Vistaril, NovoLog, Lantus, lisinopril, Toprol, MiraLax, Protonix, Xarelto, Ultram, Neurontin. ALLERGIES: ALLERGIC TO CEPHALOSPORIN, NSAIDS. FAMILY HISTORY: Family history of diabetes, heart disease, hypertension. PERSONAL AND SOCIAL HISTORY: Half pack daily. No chronic intake of alcoholic beverages. Currently unemployed. REVIEW OF SYSTEMS: As per HPI, all 10 systems reviewed. All other ROS negative. PHYSICAL EXAMINATION: VITAL SIGNS: Blood pressure was noted to be 128/67, later 160/94, pulse rate 110 later 90, RR 18, temperature 36.8, sats 90 on room air. GENERAL: Noted to be obese, looks older than stated age, no respiratory distress. SKIN: Normal color, warm. HEENT: [place] palpebral conjunctivae. No ptosis. Dry mucosa. NECK: Short, supple. CHEST: Decreased breath sounds, anterior chest wall tenderness. HEART: Regular rate and rhythm, no murmur. ABDOMEN: Some distention, nontender. EXTREMITIES: Open wound on the right forefoot plantar aspect with absent top layer of his skin exposing subcutaneous tissue, There is a discolored swelling on the left foot plantar aspect, tender; some swelling on the right lower leg. NEUROLOGIC: Coherent. No gross focality, legs somewhat restless. LABORATORY DATA: Hemoglobin was noted to be 14.9, WBC 10 Sodium noted to be 137, potassium 3.8, chloride 97, CO2 of 25, BUN 31.8, glucose 237. Troponin negative. Hemoglobin A1c from October 2017 was 7.1. Chest x-ray negative. Ultrasound, right Lower extremity, no DVT. EKG as per my interpretation rate 105, sinus tachycardia, no ischemia. ASSESSMENT: 1. Diabetic foot infection, R no sepsis. 2. Atypical chest pain likely musculoskeletal with reproducible component 3. Hypertension, elevated History medication noncompliance 4. DM 2, insulin requiring BGs currently elevated secondary to medication noncompliance well controlled as of recent HgA1c from 10/2017 5. Mood disorder, stable as per patient. 6. Ongoing tobacco abuse 7. history of LE DVT, history of Xarelto rx 6 months ago. 8. ? functional disability PLAN: PCU mainly for chest pain. Follow troponin. Follow wound cultures. Doxycycline, Cefepime for now. Wound care provider consult. Resume basal insulin, ISS BG goal 140-180. Patient is due for hemoglobin A1c check. PT, OT eval. Nicotine patch. DVT prophylaxis, Lovenox subQ. Full code. MTDD
[2018-05-05] MEDS ORDERED: CEFEPIME CONSULT ACTIVE PRN (09:00)
[2018-05-05] MEDS: INSULIN ASPART 100 UNITS/ML 3 ML PEN SC SCH ×4 (09:35→20:23)
[2018-05-05] MEDS: INSULIN GLARGINE SOLOSTAR 100 UNITS/ML 3 ML PEN SQ SCH ×2 (09:36→20:24)
--- NOTE | 2018-05-05 15:44 | Wound Progress Note: Inpatient ---
Wound Progress Note Date of Service May 05, 2018. Subjective Pt evaluation today including: conversation w/ patient, physical exam, chart review, lab review Full dictation to follow Objective Vital Signs Date Time Temp Pulse Resp B/P (MAP) Pulse Ox O2 Delivery O2 Flow Rate FiO2 05/05/18 15:03 36.7 100 20 106/68 (81) 92 Room Air 05/05/18 11:30 36.8 100 20 143/86 (105) 95 Room Air 05/05/18 08:00 Room Air 05/05/18 07:30 37.1 105 20 136/84 (101) 91 Room Air 05/05/18 02:45 36.3 100 18 136/86 93 Room Air 05/05/18 02:25 36.7 88 18 144/76 97 Room Air 05/05/18 00:05 36.8 90 18 160/94 96 Room Air 05/05/18 00:00 94 Room Air 05/04/18 21:32 36.7 114 18 128/67 94 Room Air Physical Exam Notes: Right Foot with a 5.4 X 6.3 cm partial thickness burn. Few scattered areas which may be Full thickness. Residual non viable skin around periphery.Periwound area erythematous. No drainage Right great toe with a 2.2 X1.8 Partial thickness burn. Periwound area not inflamed. No odor or drainage. Right 2nd toe with evidence of ruptured blister . Skin adherent. No erythema or drainage Left Foot with a ruptured blister measuring 5.4 X 7.7 cm. periwound area not inflamed. No drainage.Wound debrided of nonviable skin, Area underneath appears to be intact skin Laboratory Results Last 24 Hours Test 05/04/18 22:20 05/04/18 22:24 05/04/18 22:28 05/04/18 23:55 White Blood Count 9.61 K/uL Red Blood Count 5.10 M/uL Hemoglobin 14.9 g/dL Hematocrit 42.7 % Mean Corpuscular Volume 83.7 fL Mean Corpuscular Hemoglobin 29.2 pg Mean Corpuscular Hemoglobin Concent 34.9 g/dl Platelet Count 237 K/uL Mean Platelet Volume 9.6 fL Neutrophils (%) (Auto) 61.3 % Lymphocytes (%) (Auto) 23.6 % Monocytes (%) (Auto) 9.7 % Eosinophils (%) (Auto) 2.8 % Basophils (%) (Auto) 0.6 % Neutrophils # (Auto) 5.89 K/uL Lymphocytes # (Auto) 2.27 K/uL Monocytes # (Auto) 0.93 K/uL Eosinophils # (Auto) 0.27 K/uL Basophils # (Auto) 0.06 K/uL RDW Standard Deviation 38.8 fL RDW Coefficient of Variation 12.9 % Immature Granulocyte % (Auto) 2.0 % Immature Granulocyte # (Auto) 0.19 K/uL Prothrombin Time 9.4 SECONDS Prothromb Time International Ratio 0.9 Activated Partial Thromboplast Time 25.5 SECONDS Partial Thromboplastin Ratio 1.0 Sodium Level 132 mmol/L Potassium Level 3.8 mmol/L Chloride Level 97 mmol/L Carbon Dioxide Level 25 mmol/L Anion Gap 10.0 mmol/L Blood Urea Nitrogen 13 mg/dl Creatinine 0.86 mg/dl Est Creatinine Clear Calc Drug Dose 157.9 ml/min Estimated GFR () 122.2 Estimated GFR (Non- 105.5 BUN/Creatinine Ratio 15.5 Random Glucose 327 mg/dl Estimated Average Glucose 306 mg/dl Hemoglobin A1c 12.3 % Calcium Level 9.0 mg/dl Magnesium Level 2.1 mg/dl Total Bilirubin 0.4 mg/dl Aspartate Amino Transf (AST/SGOT) 15 U/L Alanine Aminotransferase (ALT/SGPT) 24 U/L Alkaline Phosphatase 91 U/L Total Creatine Kinase 93 U/L Troponin I < 0.015 ng/ml Total Protein 7.8 gm/dl Albumin 3.3 gm/dl Globulin 4.5 gm/dl Albumin/Globulin Ratio 0.7 Beta-Hydroxybutyric Acid 7.53 mg/dL Thyroid Stimulating Hormone (TSH) 1.060 uIu/ml Bedside Lactic Acid Venous 1.18 mmol/L Bedside D-Dimer 321 ng/mlFEU Bedside Troponin I < 0.030 ng/ml Urine Color YELLOW Urine Appearance CLEAR Urine pH 5.5 Urine Specific [place] 1.043 Urine Protein NEG Urine Glucose (UA) 3+ Urine Ketones 2+ Urine Occult Blood TRACE Urine Nitrite NEG Urine Bilirubin NEG Urine Urobilinogen NEG Urine Leukocyte Esterase NEG Urine WBC (Auto) 0 /hpf Urine RBC (Auto) 0-4 /hpf Urine Hyaline Casts (Auto) 0 /lpf Urine Epithelial Cells (Auto) 0-5 /lpf Urine Bacteria (Auto) NEG Test 05/05/18 05:23 05/05/18 05:33 05/05/18 07:27 White Blood Count 7.90 K/uL Red Blood Count 4.83 M/uL Hemoglobin 13.8 g/dL Hematocrit 40.4 % Mean Corpuscular Volume 83.6 fL Mean Corpuscular Hemoglobin 28.6 pg Mean Corpuscular Hemoglobin Concent 34.2 g/dl Platelet Count 207 K/uL Mean Platelet Volume 9.7 fL Neutrophils (%) (Auto) 54.7 % Lymphocytes (%) (Auto) 27.6 % Monocytes (%) (Auto) 10.4 % Eosinophils (%) (Auto) 4.1 % Basophils (%) (Auto) 0.5 % Neutrophils # (Auto) 4.33 K/uL Lymphocytes # (Auto) 2.18 K/uL Monocytes # (Auto) 0.82 K/uL Eosinophils # (Auto) 0.32 K/uL Basophils # (Auto) 0.04 K/uL RDW Standard Deviation 39.3 fL RDW Coefficient of Variation 12.9 % Immature Granulocyte % (Auto) 2.7 % Immature Granulocyte # (Auto) 0.21 K/uL Troponin I < 0.015 ng/ml Bedside Glucose 250 mg/dl 322 mg/dl Assessment and Plan 1. Partial Thickness spear to both feet in a neuropathic diabetic patient 2. Cellulitis Right foot 3. Poorly controlled diabetes 4. Medical Non Compliance PLAN: Full Consult to follow Wounds debrided with scissor and forceps of nonviable dermis. Wound culture of the right foot taken. Areas dressed with Xeroform and gauze. Nurses should change dressings daily and prn. Consult [facility] for off loading. Continue current antibiotics pending wound culture Wound Care nurse will follow while inpatient . Arrange for outpatient follow up at the Wound Center once discharged Thank you for this consultation If you have any questions regarding his wound care please feel free to contact me.
[2018-05-05] MEDS: ARIPIprazole TAB 10 MG TAB PO SCH (20:11)
--- NOTE | 2018-05-05 20:11 | Wound Consultation: Inpatient ---
Wound Consultation Date of Consultation: May 05, 2018. Attending Physician: Glenn Leija M.D. Reason for Consultation: Partial thickness spear to plantar surface both feet with associated cellulitis right foot History of Present Illness This 42 year old gentleman with a history of poorly controlled type 2 DM (due to noncompliance) with an associated peripheral neuropathy, was admitted today for treatment of PTB to both feet, cellulitis right foot and C/O Chest pain and SOB. The patient states that he was walking on hot sand on 04/30 and developed blisters on the bottom of both feet. He was evaluated in the ED on 05/01 and the right foot's blister was debrided. Patient was medicated with 1 cipro and given an Adacel immunization. He was discharged home with an Rx for Cipro which he did not get filled. On 05/04 he developed increasing pain and redness associated with CP/SOB. He was re evaluated in the ED and treated with Daptomycin, Imipenem .Venous Ultrasound done in the ED was negative for DVT. Currently on Doxycycline and Cefepime Today he continues to complain of right foot and leg pain. No fever, no chills. Patient has not been applying anything to the spear. He has not been cleaning the areas. He does have a hx of a previous diabetic foot ulcer-left foot and was treated in the [facility] in Aug. He states he has not been taking any of his prescribed medications for a number of months. Hx of DM, HTN.. Patient is a smoker. Past Medical/Surgical History PMH: Depression, Type 2 DM, HTN, DVT,V tach, Sleep Apnea,Gastroparesis, Diabetic foot ulcer, Peripheral Neuropathy PSH:Tonsillectomy, Knee surgery, foot surgery Family History Cancer Diabetes mellitus MOTHER GRANDMOTHER UNCLE AUNT Gallbladder disease Heart disease Hypertension MOTHER FATHER Lung disease Social History Smoking Status: Current Every Day Smoker Drug Use: none Marital Status: Housing Status: lives with family Occupation Status: unemployed Allergies Coded Allergies: Cephalosporins (Verified Allergy, Unknown, CECLOR- RXN UNKNOWN. A CHILD. WILLING TO TRY CEPHS AGAIN, 12/08/17) NSAIDs (Verified Adverse Reaction, Unknown, gastroparesis, kidney problems , 12/08/17) Home Medications Scheduled Aripiprazole (Aripiprazole), 10 MG PO HS Aspirin (Aspirin Ec), 81 MG PO DAILY Atorvastatin (Lipitor), 40 MG PO DAILY Ciprofloxacin Hcl (Cipro), 500 MG PO BID Duloxetine HCl (Duloxetine HCl), 60 MG PO DAILY Gabapentin (Gabapentin), 400 MG PO TID Insulin Aspart (Novolog Flexpen), 28 UNITS SQ AC Insulin Glargine (Lantus Solostar), 50 UNITS SQ BID Lisinopril (Lisinopril), 10 MG PO DAILY Metoprolol Succ (Toprol Xl) (Toprol-Xl), 12.5 MG PO BID Pantoprazole (Protonix), 40 MG PO DAILY Rivaroxaban (Xarelto), 15 MG PO BID Scheduled PRN Acetaminophen (Tylenol), 1,000 MG PO Q6H PRN for Pain Hydroxyzine Pamoate (Vistaril), 50 MG PO Q6H PRN for Anxiety Polyethylene Glycol 3350 (Miralax), 17 GM PO DAILY PRN for Constipation Tramadol (Ultram), 50 MG PO Q6H PRN for Pain Inpatient Medications Current Inpatient Medications Medications (Trade) Dose Ordered Sig/Mario Alberto Route Start Time Stop Time Status Last Admin Dose Admin Insulin Glargine (Lantus Solostar Pen) 55 units BID SQ 05/05/18 09:00 06/04/18 08:59 05/05/18 09:36 55 UNITS Aripiprazole (Abilify Tab) 10 mg HS PO 05/05/18 21:00 06/04/18 20:59 Aspirin (Ecotrin Tab) 81 mg DAILY PO 05/05/18 09:00 06/04/18 08:59 05/05/18 08:33 81 MG Atorvastatin Calcium (Lipitor Tab) 40 mg DAILY PO 05/05/18 09:00 06/04/18 08:59 05/05/18 08:34 40 MG Duloxetine HCl (Cymbalta Cap) 60 mg DAILY PO 05/05/18 09:00 06/04/18 08:59 05/05/18 08:33 60 MG Gabapentin (Neurontin Cap) 400 mg TID PO 05/05/18 09:00 06/04/18 08:59 05/05/18 13:30 400 MG Lisinopril (Zestril Tab) 10 mg DAILY PO 05/06/18 09:00 06/05/18 08:59 Metoprolol Succinate (Toprol Xl Tab) 12.5 mg BID PO 05/05/18 09:00 06/04/18 08:59 05/05/18 08:34 12.5 MG Pantoprazole Sodium (Protonix Tab) 40 mg DAILY PO 05/05/18 09:00 06/04/18 08:59 05/05/18 08:33 40 MG Tramadol HCl (Ultram Tab) 50 mg Q6H PRN PO 05/05/18 02:00 06/04/18 01:59 Hydroxyzine HCl (Vistaril Tab) 50 mg Q6H PRN PO 05/05/18 02:00 06/04/18 01:59 Polyethylene (Miralax Powder Packet) 17 gm DAILY PRN PO 05/05/18 02:00 06/04/18 01:59 Doxycycline Hyclate 100 mg/ Dextrose 110 ml @ 50 mls/hr Q12H IV 05/05/18 06:00 05/15/18 05:59 05/05/18 18:27 50 MLS/HR Cefepime HCl (Consult) 1 ea UD PRN N/A 05/05/18 09:00 06/04/18 08:59 Prochlorperazine Edisylate 5 mg/ Syringe 5 ml @ 5 mls/min Q6H PRN IV 05/05/18 02:00 06/04/18 01:59 Morphine Sulfate (MoRPHine SULFATE INJ) 4 mg Q6H PRN IV 05/05/18 02:00 05/19/18 01:59 Nicotine (Nicoderm Cq 14MG Patch) 1 patch QAM TD 05/05/18 09:00 06/04/18 08:59 Miscellaneous (Remove Nicoderm Patch) 1 ea HS N/A 05/05/18 21:00 06/04/18 20:59 Enoxaparin Sodium (Lovenox Inj) 40 mg Q24H SC 05/05/18 06:00 06/04/18 05:59 05/05/18 06:15 40 MG Acetaminophen (Tylenol Tab) 650 mg Q4H PRN PO 05/05/18 02:00 06/04/18 01:59 Insulin Aspart (novoLOG ASPART) SLIDING SCALE If C... ACHS SC 05/05/18 07:00 06/04/18 06:59 05/05/18 17:31 4 UNITS Glucose (Glucose 40% Gel) 15-30 GRAMS 15 GRAMS... UD PRN PO 05/05/18 02:00 06/04/18 01:59 Glucose (Glucose Chew Tab) 4-8 Tablets 4 Tabl... UD PRN PO 05/05/18 02:00 06/04/18 01:59 Dextrose (Dextrose 50% 50ML Syringe) 25-50ML 25ML FOR ... UD PRN IV 05/05/18 02:00 06/04/18 01:59 Glucagon (Glucagon Inj) 1 mg UD PRN SQ 05/05/18 02:00 06/04/18 01:59 Carbohydrates (Carbohydrates For Hypoglycemia) 15-30 GRAMS 15 grams if BSG 54-69... UD PRN PO 05/05/18 02:00 06/04/18 01:59 Cefepime HCl 2000 mg/Syringe 20 ml @ 5 mls/min Q12H IV 05/05/18 08:00 05/15/18 07:59 05/05/18 08:32 5 MLS/MIN Review of Systems See HPI for pertinent positives and negative. Recent CP and SOB, Polydipsia and Polyuria No other acute complaints- 10 systems reviewed Physical Exam Date Time Temp Pulse Resp B/P (MAP) Pulse Ox O2 Delivery O2 Flow Rate FiO2 05/05/18 19:28 36.9 93 24 147/81 (103) 94 Room Air 05/05/18 15:03 36.7 100 20 106/68 (81) 92 Room Air 05/05/18 11:30 36.8 100 20 143/86 (105) 95 Room Air 05/05/18 08:00 Room Air 05/05/18 07:30 37.1 105 20 136/84 (101) 91 Room Air 05/05/18 02:45 36.3 100 18 136/86 93 Room Air 05/05/18 02:25 36.7 88 18 144/76 97 Room Air 05/05/18 00:05 36.8 90 18 160/94 96 Room Air 05/05/18 00:00 94 Room Air 05/04/18 21:32 36.7 114 18 128/67 94 Room Air SKIN: Right Foot with a 5.4 X 6.3 cm partial thickness burn. Few scattered areas which may be Full thickness. Residual non viable skin around periphery.Periwound area erythematous. No drainage Right great toe with a 2.2 X1.8 cm. Partial thickness burn. Periwound area not inflamed. No odor or drainage. Right 2nd toe with evidence of ruptured blister . Skin adherent. No erythema or drainage Left Foot with a ruptured blister measuring 5.4 X 7.7 cm. periwound area not inflamed. No drainage.Wound debrided of nonviable skin, Area underneath appears to be intact skin General Appearance: WD/WN, no apparent distress Head: normocephalic, atraumatic Eyes: PERRL, EOMI Neck: supple Respiratory/Chest: lungs clear Cardiovascular: regular rate, rhythm Abdomen/GI: non tender, soft Back: normal inspection, no CVA tenderness Extremities/Musculoskelatal: no calf tenderness, normal capillary refill, normal range of motion, + pertinent finding (diminished sensation both lower extremities.) Neurologic/Psych: + sensory deficit Laboratory Results Last 24 Hours Test 05/04/18 22:20 05/04/18 22:24 05/04/18 22:28 05/04/18 23:55 White Blood Count 9.61 K/uL Red Blood Count 5.10 M/uL Hemoglobin 14.9 g/dL Hematocrit 42.7 % Mean Corpuscular Volume 83.7 fL Mean Corpuscular Hemoglobin 29.2 pg Mean Corpuscular Hemoglobin Concent 34.9 g/dl Platelet Count 237 K/uL Mean Platelet Volume 9.6 fL Neutrophils (%) (Auto) 61.3 % Lymphocytes (%) (Auto) 23.6 % Monocytes (%) (Auto) 9.7 % Eosinophils (%) (Auto) 2.8 % Basophils (%) (Auto) 0.6 % Neutrophils # (Auto) 5.89 K/uL Lymphocytes # (Auto) 2.27 K/uL Monocytes # (Auto) 0.93 K/uL Eosinophils # (Auto) 0.27 K/uL Basophils # (Auto) 0.06 K/uL RDW Standard Deviation 38.8 fL RDW Coefficient of Variation 12.9 % Immature Granulocyte % (Auto) 2.0 % Immature Granulocyte # (Auto) 0.19 K/uL Prothrombin Time 9.4 SECONDS Prothromb Time International Ratio 0.9 Activated Partial Thromboplast Time 25.5 SECONDS Partial Thromboplastin Ratio 1.0 Sodium Level 132 mmol/L Potassium Level 3.8 mmol/L Chloride Level 97 mmol/L Carbon Dioxide Level 25 mmol/L Anion Gap 10.0 mmol/L Blood Urea Nitrogen 13 mg/dl Creatinine 0.86 mg/dl Est Creatinine Clear Calc Drug Dose 157.9 ml/min Estimated GFR () 122.2 Estimated GFR (Non- 105.5 BUN/Creatinine Ratio 15.5 Random Glucose 327 mg/dl Estimated Average Glucose 306 mg/dl Hemoglobin A1c 12.3 % Calcium Level 9.0 mg/dl Magnesium Level 2.1 mg/dl Total Bilirubin 0.4 mg/dl Aspartate Amino Transf (AST/SGOT) 15 U/L Alanine Aminotransferase (ALT/SGPT) 24 U/L Alkaline Phosphatase 91 U/L Total Creatine Kinase 93 U/L Troponin I < 0.015 ng/ml Total Protein 7.8 gm/dl Albumin 3.3 gm/dl Globulin 4.5 gm/dl Albumin/Globulin Ratio 0.7 Beta-Hydroxybutyric Acid 7.53 mg/dL Thyroid Stimulating Hormone (TSH) 1.060 uIu/ml Bedside Lactic Acid Venous 1.18 mmol/L Bedside D-Dimer 321 ng/mlFEU Bedside Troponin I < 0.030 ng/ml Urine Color YELLOW Urine Appearance CLEAR Urine pH 5.5 Urine Specific [place] 1.043 Urine Protein NEG Urine Glucose (UA) 3+ Urine Ketones 2+ Urine Occult Blood TRACE Urine Nitrite NEG Urine Bilirubin NEG Urine Urobilinogen NEG Urine Leukocyte Esterase NEG Urine WBC (Auto) 0 /hpf Urine RBC (Auto) 0-4 /hpf Urine Hyaline Casts (Auto) 0 /lpf Urine Epithelial Cells (Auto) 0-5 /lpf Urine Bacteria (Auto) NEG Test 05/05/18 05:23 05/05/18 05:33 05/05/18 07:27 05/05/18 11:18 White Blood Count 7.90 K/uL Red Blood Count 4.83 M/uL Hemoglobin 13.8 g/dL Hematocrit 40.4 % Mean Corpuscular Volume 83.6 fL Mean Corpuscular Hemoglobin 28.6 pg Mean Corpuscular Hemoglobin Concent 34.2 g/dl Platelet Count 207 K/uL Mean Platelet Volume 9.7 fL Neutrophils (%) (Auto) 54.7 % Lymphocytes (%) (Auto) 27.6 % Monocytes (%) (Auto) 10.4 % Eosinophils (%) (Auto) 4.1 % Basophils (%) (Auto) 0.5 % Neutrophils # (Auto) 4.33 K/uL Lymphocytes # (Auto) 2.18 K/uL Monocytes # (Auto) 0.82 K/uL Eosinophils # (Auto) 0.32 K/uL Basophils # (Auto) 0.04 K/uL RDW Standard Deviation 39.3 fL RDW Coefficient of Variation 12.9 % Immature Granulocyte % (Auto) 2.7 % Immature Granulocyte # (Auto) 0.21 K/uL Troponin I < 0.015 ng/ml Bedside Glucose 250 mg/dl 322 mg/dl 297 mg/dl Test 05/05/18 16:16 Bedside Glucose 215 mg/dl Assessment & Plan 1. Partial Thickness spear to both feet in a neuropathic diabetic patient 2. Cellulitis Right foot 3. Poorly controlled diabetes 4. Medical Non Compliance Wounds debrided with scissor and forceps of nonviable dermis. Wound culture of the right foot taken. Areas dressed with Xeroform and gauze. Nurses should change dressings daily and prn. Consult [facility] for off loading. Continue current antibiotics pending wound culture Wound Care nurse will follow while inpatient . Arrange for outpatient follow up at the [facility]ound Center once discharged This represents an initial debridement of partial thickness spear -small Thank you for this consultation If you have any questions regarding his wound care please feel free to contact me.
[2018-05-05] MEDS: TRAMADOL HCL 50 MG TAB PO PRN (20:13)
--- NOTE | 2018-05-05 22:10 | Progress Note ---
Medicine Progress Note Date & Time of Visit: May 05, 2018 at 19:20 . Subjective Admitted early this morning with foot lesions and poorly controlled blood sugars. . Objective Last 8 Hrs Date Time Temp Pulse Resp B/P (MAP) Pulse Ox O2 Delivery O2 Flow Rate FiO2 05/05/18 21:07 36.7 91 20 154/94 (114) 95 Room Air 05/05/18 19:28 36.9 93 24 147/81 (103) 94 Room Air 05/05/18 15:03 36.7 100 20 106/68 (81) 92 Room Air Physical Exam: General- lying in bed; no distress Lungs- clear to auscultation; no respiratory distress Cardiovascular- RRR; no murmur; no gallop; no JVD; no pretibial edema Abdomen- + bowel sounds, soft, nontender Extremities- no cyanosis; no calf tenderness; both feet bandaged Neuro- alert, oriented Skin- warm & dry . Laboratory Results: Last 24 Hours Test 05/04/18 22:20 05/04/18 22:24 05/04/18 22:28 05/04/18 23:55 White Blood Count 9.61 K/uL Red Blood Count 5.10 M/uL Hemoglobin 14.9 g/dL Hematocrit 42.7 % Mean Corpuscular Volume 83.7 fL Mean Corpuscular Hemoglobin 29.2 pg Mean Corpuscular Hemoglobin Concent 34.9 g/dl Platelet Count 237 K/uL Mean Platelet Volume 9.6 fL Neutrophils (%) (Auto) 61.3 % Lymphocytes (%) (Auto) 23.6 % Monocytes (%) (Auto) 9.7 % Eosinophils (%) (Auto) 2.8 % Basophils (%) (Auto) 0.6 % Neutrophils # (Auto) 5.89 K/uL Lymphocytes # (Auto) 2.27 K/uL Monocytes # (Auto) 0.93 K/uL Eosinophils # (Auto) 0.27 K/uL Basophils # (Auto) 0.06 K/uL RDW Standard Deviation 38.8 fL RDW Coefficient of Variation 12.9 % Immature Granulocyte % (Auto) 2.0 % Immature Granulocyte # (Auto) 0.19 K/uL Prothrombin Time 9.4 SECONDS Prothromb Time International Ratio 0.9 Activated Partial Thromboplast Time 25.5 SECONDS Partial Thromboplastin Ratio 1.0 Sodium Level 132 mmol/L Potassium Level 3.8 mmol/L Chloride Level 97 mmol/L Carbon Dioxide Level 25 mmol/L Anion Gap 10.0 mmol/L Blood Urea Nitrogen 13 mg/dl Creatinine 0.86 mg/dl Est Creatinine Clear Calc Drug Dose 157.9 ml/min Estimated GFR () 122.2 Estimated GFR (Non- 105.5 BUN/Creatinine Ratio 15.5 Random Glucose 327 mg/dl Estimated Average Glucose 306 mg/dl Hemoglobin A1c 12.3 % Calcium Level 9.0 mg/dl Magnesium Level 2.1 mg/dl Total Bilirubin 0.4 mg/dl Aspartate Amino Transf (AST/SGOT) 15 U/L Alanine Aminotransferase (ALT/SGPT) 24 U/L Alkaline Phosphatase 91 U/L Total Creatine Kinase 93 U/L Troponin I < 0.015 ng/ml Total Protein 7.8 gm/dl Albumin 3.3 gm/dl Globulin 4.5 gm/dl Albumin/Globulin Ratio 0.7 Beta-Hydroxybutyric Acid 7.53 mg/dL Thyroid Stimulating Hormone (TSH) 1.060 uIu/ml Bedside Lactic Acid Venous 1.18 mmol/L Bedside D-Dimer 321 ng/mlFEU Bedside Troponin I < 0.030 ng/ml Urine Color YELLOW Urine Appearance CLEAR Urine pH 5.5 Urine Specific [place] 1.043 Urine Protein NEG Urine Glucose (UA) 3+ Urine Ketones 2+ Urine Occult Blood TRACE Urine Nitrite NEG Urine Bilirubin NEG Urine Urobilinogen NEG Urine Leukocyte Esterase NEG Urine WBC (Auto) 0 /hpf Urine RBC (Auto) 0-4 /hpf Urine Hyaline Casts (Auto) 0 /lpf Urine Epithelial Cells (Auto) 0-5 /lpf Urine Bacteria (Auto) NEG Test 05/05/18 05:23 05/05/18 05:33 05/05/18 07:27 05/05/18 11:18 White Blood Count 7.90 K/uL Red Blood Count 4.83 M/uL Hemoglobin 13.8 g/dL Hematocrit 40.4 % Mean Corpuscular Volume 83.6 fL Mean Corpuscular Hemoglobin 28.6 pg Mean Corpuscular Hemoglobin Concent 34.2 g/dl Platelet Count 207 K/uL Mean Platelet Volume 9.7 fL Neutrophils (%) (Auto) 54.7 % Lymphocytes (%) (Auto) 27.6 % Monocytes (%) (Auto) 10.4 % Eosinophils (%) (Auto) 4.1 % Basophils (%) (Auto) 0.5 % Neutrophils # (Auto) 4.33 K/uL Lymphocytes # (Auto) 2.18 K/uL Monocytes # (Auto) 0.82 K/uL Eosinophils # (Auto) 0.32 K/uL Basophils # (Auto) 0.04 K/uL RDW Standard Deviation 39.3 fL RDW Coefficient of Variation 12.9 % Immature Granulocyte % (Auto) 2.7 % Immature Granulocyte # (Auto) 0.21 K/uL Troponin I < 0.015 ng/ml Bedside Glucose 250 mg/dl 322 mg/dl 297 mg/dl Test 05/05/18 16:16 Bedside Glucose 215 mg/dl Date/Time Source Procedure Growth Status 05/05/18 12:30 Drainage - Surface Foot Right Gram Stain - Final Resulted 05/05/18 12:30 Drainage - Surface Foot Right Wound Culture Pending Resulted 05/05/18 03:45 Drainage - Surface Foot Right Gram Stain - Final Resulted 05/05/18 03:45 Drainage - Surface Foot Right Wound Culture Pending Resulted Assessment & Plan FOOT LESIONS IV cefepime + doxycycline. Wound Care consulted. DM TYPE 2, POORLY CONTROLLED Hgb A1C 12. Titrate insulin therapy. Ongoing diabetes education / support. CHEST PAIN Cardiac markers neg. D-dimer normal. Recent dobutamine stress echo. HYPERTENSION Continue lisinopril. VTE PROPHYLAXIS SQ enoxaparin. DISPOSITION Expected discharge to home. Family Medicine follow-up with Dr. Valencia. . Current Inpatient Medications: Current Inpatient Medications Medications (Trade) Dose Ordered Sig/Mario Alberto Route Start Time Stop Time Status Last Admin Dose Admin Insulin Glargine (Lantus Solostar Pen) 55 units BID SQ 05/05/18 09:00 06/04/18 08:59 05/05/18 20:24 55 UNITS Aripiprazole (Abilify Tab) 10 mg HS PO 05/05/18 21:00 06/04/18 20:59 05/05/18 20:11 10 MG Aspirin (Ecotrin Tab) 81 mg DAILY PO 05/05/18 09:00 06/04/18 08:59 05/05/18 08:33 81 MG Atorvastatin Calcium (Lipitor Tab) 40 mg DAILY PO 05/05/18 09:00 06/04/18 08:59 05/05/18 08:34 40 MG Duloxetine HCl (Cymbalta Cap) 60 mg DAILY PO 05/05/18 09:00 06/04/18 08:59 05/05/18 08:33 60 MG Gabapentin (Neurontin Cap) 400 mg TID PO 05/05/18 09:00 06/04/18 08:59 05/05/18 20:11 400 MG Lisinopril (Zestril Tab) 10 mg DAILY PO 05/06/18 09:00 06/05/18 08:59 Metoprolol Succinate (Toprol Xl Tab) 12.5 mg BID PO 05/05/18 09:00 06/04/18 08:59 05/05/18 20:12 12.5 MG Pantoprazole Sodium (Protonix Tab) 40 mg DAILY PO 05/05/18 09:00 06/04/18 08:59 05/05/18 08:33 40 MG Tramadol HCl (Ultram Tab) 50 mg Q6H PRN PO 05/05/18 02:00 06/04/18 01:59 05/05/18 20:13 50 MG Hydroxyzine HCl (Vistaril Tab) 50 mg Q6H PRN PO 05/05/18 02:00 06/04/18 01:59 Polyethylene (Miralax Powder Packet) 17 gm DAILY PRN PO 05/05/18 02:00 06/04/18 01:59 Doxycycline Hyclate 100 mg/ Dextrose 110 ml @ 50 mls/hr Q12H IV 05/05/18 06:00 05/15/18 05:59 05/05/18 18:27 50 MLS/HR Cefepime HCl (Consult) 1 ea UD PRN N/A 05/05/18 09:00 06/04/18 08:59 Prochlorperazine Edisylate 5 mg/ Syringe 5 ml @ 5 mls/min Q6H PRN IV 05/05/18 02:00 06/04/18 01:59 Morphine Sulfate (MoRPHine SULFATE INJ) 4 mg Q6H PRN IV 05/05/18 02:00 05/19/18 01:59 Nicotine (Nicoderm Cq 14MG Patch) 1 patch QAM TD 05/05/18 09:00 06/04/18 08:59 Miscellaneous (Remove Nicoderm Patch) 1 ea HS N/A 05/05/18 21:00 06/04/18 20:59 Enoxaparin Sodium (Lovenox Inj) 40 mg Q24H SC 05/05/18 06:00 06/04/18 05:59 05/05/18 06:15 40 MG Acetaminophen (Tylenol Tab) 650 mg Q4H PRN PO 05/05/18 02:00 06/04/18 01:59 Insulin Aspart (novoLOG ASPART) SLIDING SCALE If C... ACHS SC 05/05/18 07:00 06/04/18 06:59 05/05/18 20:23 3 UNITS Glucose (Glucose 40% Gel) 15-30 GRAMS 15 GRAMS... UD PRN PO 05/05/18 02:00 06/04/18 01:59 Glucose (Glucose Chew Tab) 4-8 Tablets 4 Tabl... UD PRN PO 05/05/18 02:00 06/04/18 01:59 Dextrose (Dextrose 50% 50ML Syringe) 25-50ML 25ML FOR ... UD PRN IV 05/05/18 02:00 06/04/18 01:59 Glucagon (Glucagon Inj) 1 mg UD PRN SQ 05/05/18 02:00 06/04/18 01:59 Carbohydrates (Carbohydrates For Hypoglycemia) 15-30 GRAMS 15 grams if BSG 54-69... UD PRN PO 05/05/18 02:00 06/04/18 01:59 Cefepime HCl 2000 mg/Syringe 20 ml @ 5 mls/min Q12H IV 05/05/18 08:00 05/15/18 07:59 05/05/18 20:11 5 MLS/MIN
[2018-05-05] MEDS: MoRPHine SULFATE 4 MG/ML 1 ML CARP\\VIAL IV PRN (23:51)
[2018-05-06] MEDS: ENOXAPARIN 40 MG/0.4 ML SYR SC SCH (05:54)
[2018-05-06] MEDS: DOXYCYCLINE IV 100 MG in DEXTROSE 5% 100ML 100 ML IV SCH ×2 (05:54→18:37)
[2018-05-06 07:34] VITALS: BP 125/72; PULSE 82; TEMP 36.6; O2SAT 94
[2018-05-06 07:36] LABS: CALCIUM 8.8 mg/dl (8.5-10.1); CREATININE 0.76 mg/dl (0.60-1.40); POTASSIUM 3.5 mmol/L (3.5-5.1)
[2018-05-06] MEDS: NICOTINE 14 MG/24 HR TDSY TD SCH (07:38)
[2018-05-06] MEDS: PANTOprazole SOD 40 MG TAB PO SCH (07:39)
[2018-05-06] MEDS: LISINOPRIL 10 MG TAB PO SCH (07:39)
[2018-05-06] MEDS: ASPIRIN 81 MG ECTAB PO SCH (07:39)
[2018-05-06] MEDS: METOPROLOL SUCC 25MG EXT REL TAB PO SCH ×2 (07:39→20:54)
[2018-05-06] MEDS: ATORVASTATIN 40 MG TAB PO SCH (07:40)
[2018-05-06] MEDS: DULOXETINE HCL 60 MG CAP PO SCH (07:40)
[2018-05-06] MEDS: GABAPENTIN 400 MG CAP PO SCH ×3 (07:40→20:54)
[2018-05-06] MEDS: CEFEPIME IV 2,000 MG in SYRINGE 7.5 ML IV SCH ×2 (07:46→20:00)
[2018-05-06] MEDS: INSULIN ASPART 100 UNITS/ML 3 ML PEN SC SCH ×4 (07:46→21:23)
[2018-05-06] MEDS: INSULIN GLARGINE SOLOSTAR 100 UNITS/ML 3 ML PEN SQ SCH ×2 (07:52→21:23)
[2018-05-06 12:04] VITALS: Ht 190.5 cm; Wt 127.6 kg
[2018-05-06 15:09] VITALS: BP 144/83; PULSE 94; TEMP 36.9; O2SAT 94
[2018-05-06] MEDS: MoRPHine SULFATE 4 MG/ML 1 ML CARP\\VIAL IV PRN (19:19)
[2018-05-06] MEDS: TRAMADOL HCL 50 MG TAB PO PRN (19:59)
[2018-05-06] MEDS: ARIPIprazole TAB 10 MG TAB PO SCH (20:53)
--- NOTE | 2018-05-06 21:40 | Progress Note ---
Medicine Progress Note Date & Time of Visit: May 06, 2018 at 12:10 . Subjective CC: Follow-up visit for foot ulcers, diabetes, and other problems. HPI: Bilateral foot pain. No fever. Still has intermittent substernal chest pain at rest. ROS: General- no fever, no chills Resp- no cough; no shortness of breath Cardiac- as noted above in HPI GI- no nausea, no vomiting, no diarrhea, no constipation - no dysuria, no difficulty voiding . Objective Last 8 Hrs Date Time Temp Pulse Resp B/P (MAP) Pulse Ox O2 Delivery O2 Flow Rate FiO2 05/06/18 16:00 Room Air 05/06/18 15:09 36.9 94 20 144/83 (103) 94 Room Air Physical Exam: General- lying in bed; no distress Lungs- clear to auscultation; no respiratory distress Cardiovascular- RRR; no murmur; no gallop; no JVD; no pretibial edema Abdomen- + bowel sounds, soft, nontender Extremities- no cyanosis; no calf tenderness; large ulcers plantar surface bilateral feet Neuro- alert, oriented Skin- warm & dry . Laboratory Results: Last 24 Hours Test 05/06/18 06:46 05/06/18 07:27 05/06/18 11:40 05/06/18 16:37 Sodium Level 137 mmol/L Potassium Level 3.5 mmol/L Chloride Level 102 mmol/L Carbon Dioxide Level 30 mmol/L Anion Gap 6.0 mmol/L Blood Urea Nitrogen 13 mg/dl Creatinine 0.76 mg/dl Est Creatinine Clear Calc Drug Dose 178.5 ml/min Estimated GFR () 128.6 Estimated GFR (Non- 111.0 BUN/Creatinine Ratio 17.7 Random Glucose 189 mg/dl Calcium Level 8.8 mg/dl Bedside Glucose 205 mg/dl 183 mg/dl 191 mg/dl Test 05/06/18 19:52 Bedside Glucose 242 mg/dl Assessment & Plan FOOT LESIONS IV cefepime + doxycycline. Wound Care consulted. DM TYPE 2, POORLY CONTROLLED Random blood sugar in ED 327. Hgb A1C 12. Titrate insulin therapy. Ongoing diabetes education / support. CHEST PAIN Cardiac markers neg. D-dimer normal. Recent dobutamine stress echo. HYPERTENSION Continue lisinopril. VTE PROPHYLAXIS SQ enoxaparin. DISPOSITION Expected discharge to home. Family Medicine follow-up with Dr. Valencia. . Current Inpatient Medications: Current Inpatient Medications Medications (Trade) Dose Ordered Sig/Mario Alberto Route Start Time Stop Time Status Last Admin Dose Admin Aripiprazole (Abilify Tab) 10 mg HS PO 05/05/18 21:00 06/04/18 20:59 05/06/18 20:53 10 MG Aspirin (Ecotrin Tab) 81 mg DAILY PO 05/05/18 09:00 06/04/18 08:59 05/06/18 07:39 81 MG Atorvastatin Calcium (Lipitor Tab) 40 mg DAILY PO 05/05/18 09:00 06/04/18 08:59 05/06/18 07:40 40 MG Duloxetine HCl (Cymbalta Cap) 60 mg DAILY PO 05/05/18 09:00 06/04/18 08:59 05/06/18 07:40 60 MG Gabapentin (Neurontin Cap) 400 mg TID PO 05/05/18 09:00 06/04/18 08:59 05/06/18 20:54 400 MG Lisinopril (Zestril Tab) 10 mg DAILY PO 05/06/18 09:00 06/05/18 08:59 05/06/18 07:39 10 MG Metoprolol Succinate (Toprol Xl Tab) 12.5 mg BID PO 05/05/18 09:00 06/04/18 08:59 05/06/18 20:54 12.5 MG Pantoprazole Sodium (Protonix Tab) 40 mg DAILY PO 05/05/18 09:00 06/04/18 08:59 05/06/18 07:39 40 MG Tramadol HCl (Ultram Tab) 50 mg Q6H PRN PO 05/05/18 02:00 06/04/18 01:59 05/06/18 19:59 50 MG Hydroxyzine HCl (Vistaril Tab) 50 mg Q6H PRN PO 05/05/18 02:00 06/04/18 01:59 Polyethylene (Miralax Powder Packet) 17 gm DAILY PRN PO 05/05/18 02:00 06/04/18 01:59 Doxycycline Hyclate 100 mg/ Dextrose 110 ml @ 50 mls/hr Q12H IV 05/05/18 06:00 05/15/18 05:59 05/06/18 18:37 50 MLS/HR Cefepime HCl (Consult) 1 ea UD PRN N/A 05/05/18 09:00 06/04/18 08:59 Prochlorperazine Edisylate 5 mg/ Syringe 5 ml @ 5 mls/min Q6H PRN IV 05/05/18 02:00 06/04/18 01:59 Morphine Sulfate (MoRPHine SULFATE INJ) 4 mg Q6H PRN IV 05/05/18 02:00 05/19/18 01:59 05/06/18 19:19 4 MG Nicotine (Nicoderm Cq 14MG Patch) 1 patch QAM TD 05/05/18 09:00 06/04/18 08:59 Miscellaneous (Remove Nicoderm Patch) 1 ea HS N/A 05/05/18 21:00 06/04/18 20:59 Enoxaparin Sodium (Lovenox Inj) 40 mg Q24H SC 05/05/18 06:00 06/04/18 05:59 05/06/18 05:54 40 MG Acetaminophen (Tylenol Tab) 650 mg Q4H PRN PO 05/05/18 02:00 06/04/18 01:59 Insulin Aspart (novoLOG ASPART) SLIDING SCALE If C... ACHS SC 05/05/18 07:00 06/04/18 06:59 05/06/18 21:23 8 UNITS Glucose (Glucose 40% Gel) 15-30 GRAMS 15 GRAMS... UD PRN PO 05/05/18 02:00 06/04/18 01:59 Glucose (Glucose Chew Tab) 4-8 Tablets 4 Tabl... UD PRN PO 05/05/18 02:00 06/04/18 01:59 Dextrose (Dextrose 50% 50ML Syringe) 25-50ML 25ML FOR ... UD PRN IV 05/05/18 02:00 06/04/18 01:59 Glucagon (Glucagon Inj) 1 mg UD PRN SQ 05/05/18 02:00 06/04/18 01:59 Carbohydrates (Carbohydrates For Hypoglycemia) 15-30 GRAMS 15 grams if BSG 54-69... UD PRN PO 05/05/18 02:00 06/04/18 01:59 Cefepime HCl 2000 mg/Syringe 20 ml @ 5 mls/min Q12H IV 05/05/18 08:00 05/15/18 07:59 05/06/18 20:00 5 MLS/MIN Insulin Glargine (Lantus Solostar Pen) BID SQ 05/06/18 09:00 06/04/18 08:59 05/06/18 21:23 70 UNITS
[2018-05-06 22:20] VITALS: BP 144/85; PULSE 92; TEMP 36.7; O2SAT 95
[2018-05-07] MEDS: DOXYCYCLINE IV 100 MG in DEXTROSE 5% 100ML 100 ML IV SCH ×2 (06:26→17:43)
[2018-05-07] MEDS: ENOXAPARIN 40 MG/0.4 ML SYR SC SCH (06:27)
[2018-05-07 07:16] VITALS: BP 125/89; PULSE 82; TEMP 36.5; O2SAT 92
[2018-05-07] MEDS: ASPIRIN 81 MG ECTAB PO SCH (07:56)
[2018-05-07] MEDS: PANTOprazole SOD 40 MG TAB PO SCH (07:56)
[2018-05-07] MEDS: ATORVASTATIN 40 MG TAB PO SCH (07:56)
[2018-05-07] MEDS: LISINOPRIL 10 MG TAB PO SCH (07:56)
[2018-05-07] MEDS: DULOXETINE HCL 60 MG CAP PO SCH (07:56)
[2018-05-07] MEDS: GABAPENTIN 400 MG CAP PO SCH ×3 (07:56→21:21)
[2018-05-07] MEDS: METOPROLOL SUCC 25MG EXT REL TAB PO SCH ×2 (07:56→21:21)
[2018-05-07 08:00] VITALS: O2SAT 92
[2018-05-07] MEDS: INSULIN ASPART 100 UNITS/ML 3 ML PEN SC SCH ×4 (08:04→21:17)
[2018-05-07] MEDS: INSULIN GLARGINE SOLOSTAR 100 UNITS/ML 3 ML PEN SQ SCH ×2 (08:04→21:20)
[2018-05-07] MEDS: CEFEPIME IV 2,000 MG in SYRINGE 7.5 ML IV SCH ×2 (08:05→19:40)
[2018-05-07] MEDS: TRAMADOL HCL 50 MG TAB PO PRN ×2 (08:05→13:38)
[2018-05-07] MEDS: NICOTINE 14 MG/24 HR TDSY TD SCH (08:07)
[2018-05-07] MEDS: MoRPHine SULFATE 4 MG/ML 1 ML CARP\\VIAL IV PRN ×2 (09:21→17:11)
[2018-05-07 15:25] VITALS: BP 103/62; PULSE 87; TEMP 36.5; O2SAT 96
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
[2018-05-07] MEDS: ARIPIprazole TAB 10 MG TAB PO SCH (21:20)
[2018-05-08] VITALS: BP 126/83; PULSE 88; TEMP 36.5; O2SAT 95
[2018-05-08] MEDS: DOXYCYCLINE IV 100 MG in DEXTROSE 5% 100ML 100 ML IV SCH ×2 (05:45→18:07)
[2018-05-08] MEDS: ENOXAPARIN 40 MG/0.4 ML SYR SC SCH (05:46)
[2018-05-08 06:38] LABS: BASO % 0.8 %; BASO ABS # 0.06 K/uL (0-0.2); EOS % 3.2 %; EOS ABS # 0.23 K/uL (0-0.5); HEMATOCRIT 43.6 % (42-52); HEMOGLOBIN 14.7 g/dL (14.0-18.0); IG# 0.35 K/uL (0.00-0.02); LYMPH % 33.5 %; LYMPH ABS # 2.39 K/uL (1.2-3.4); MEAN CELL VOLUME 85.2 fL (80-100); MEAN CORPUSCULAR HEMOGLOBIN 28.7 pg (25-34); MEAN CORPUSCULAR HGB CONC 33.7 g/dl (32-36); MEAN PLATELET VOLUME 9.5 fL (7.4-10.4); MONO % 8.6 %; MONO ABS # 0.61 K/uL (0.11-0.59); NEUT ABS # 3.49 K/uL (1.4-6.5); PLATELET COUNT 264 K/uL (130-400); RED CELL DISTRIBUTION WIDTH CV 12.9 % (11.5-14.5); RED CELL DISTRIBUTION WIDTH SD 40.4 fL (36.4-46.3); WHITE BLOOD COUNT 7.13 K/uL (4.8-10.8)
[2018-05-08 07:04] VITALS: BP 106/79; PULSE 80; TEMP 36.5; O2SAT 96
[2018-05-08 07:09] LABS: CALCIUM 8.8 mg/dl (8.5-10.1); CREATININE 0.8 mg/dl (0.60-1.40); POTASSIUM 3.3 mmol/L (3.5-5.1)
[2018-05-08] MEDS: INSULIN ASPART 100 UNITS/ML 3 ML PEN SC SCH ×4 (08:19→20:50)
[2018-05-08] MEDS: INSULIN GLARGINE SOLOSTAR 100 UNITS/ML 3 ML PEN SQ SCH ×2 (08:20→20:51)
[2018-05-08] MEDS: METOPROLOL SUCC 25MG EXT REL TAB PO SCH ×2 (08:32→20:06)
[2018-05-08] MEDS: GABAPENTIN 400 MG CAP PO SCH ×3 (08:32→20:06)
[2018-05-08] MEDS: ASPIRIN 81 MG ECTAB PO SCH (08:32)
[2018-05-08] MEDS: POTASSIUM CHLORIDE 20 MEQ TABCR PO SCH ×2 (08:32→20:05)
[2018-05-08] MEDS: CEFEPIME IV 2,000 MG in SYRINGE 7.5 ML IV SCH ×2 (08:32→20:03)
[2018-05-08] MEDS: LISINOPRIL 10 MG TAB PO SCH (08:32)
[2018-05-08] MEDS: PANTOprazole SOD 40 MG TAB PO SCH (08:33)
[2018-05-08] MEDS: NICOTINE 14 MG/24 HR TDSY TD SCH (08:33)
[2018-05-08] MEDS: ATORVASTATIN 40 MG TAB PO SCH (08:33)
[2018-05-08] MEDS: DULOXETINE HCL 60 MG CAP PO SCH (08:33)
[2018-05-08] MEDS ORDERED: DOCUSATE SODIUM 100 MG CAP PO ONE (11:30)
[2018-05-08 15:15] VITALS: BP 129/84; PULSE 101; TEMP 36.3; O2SAT 94
[2018-05-08] MEDS: TRAMADOL HCL 50 MG TAB PO PRN ×2 (17:10→23:50)
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
[2018-05-08] MEDS: ARIPIprazole TAB 10 MG TAB PO SCH (20:05)
[2018-05-08] MEDS: DOCUSATE SODIUM 100 MG CAP PO SCH (20:05)
[2018-05-08] MEDS: MoRPHine SULFATE 4 MG/ML 1 ML CARP\\VIAL IV PRN (20:52)
[2018-05-08 22:55] VITALS: BP 177/118; PULSE 96; TEMP 36.5; O2SAT 96
[2018-05-09] MEDS: ENOXAPARIN 40 MG/0.4 ML SYR SC SCH (06:34)
--- NOTE | 2018-05-09 06:37 | DIAGNOSTIC IMAGING REPORT ---
R VENOUS DOPP LOWER EXT UNILAT HISTORY: 42 years-old Male right calf pain acute right leg pain and swelling COMPARISON: Duplex venous Doppler study 05/04/2018 TECHNIQUE: Multiple real-time sonographic images of the right lower extremity deep venous structures were obtained assessing grayscale appearance, color and spectral flow FINDINGS: There is normal flow, compressibility, phasicity and augmentation of the right lower extremity deep venous structures. Mildly enlarged lymph nodes of the right inguinal region are noted measuring up to 2.0 x 0.7 x 1.9 cm demonstrating normal morphology with fatty hilum. IMPRESSION: 1. No sonographic evidence of deep venous thrombosis. 2. Mildly enlarged lymph nodes of the right inguinal chain, likely reactive. The above report was generated using voice recognition software. It may contain grammatical, syntax or spelling errors. Electronically signed by: Tanner Hilliard M.D. 05/09/2018 6:36 AM Dictated Date/Time: 05/09/2018 6:34 AM
[2018-05-09 07:46] VITALS: BP 128/72; PULSE 84; TEMP 36.8; O2SAT 94
[2018-05-09] MEDS: INSULIN GLARGINE SOLOSTAR 100 UNITS/ML 3 ML PEN SQ SCH ×2 (08:07→21:31)
[2018-05-09] MEDS: INSULIN ASPART 100 UNITS/ML 3 ML PEN SC SCH ×4 (08:07→21:32)
[2018-05-09] MEDS: ASPIRIN 81 MG ECTAB PO SCH (08:37)
[2018-05-09] MEDS: LISINOPRIL 10 MG TAB PO SCH (08:37)
[2018-05-09] MEDS: DULOXETINE HCL 60 MG CAP PO SCH (08:37)
[2018-05-09] MEDS: ATORVASTATIN 40 MG TAB PO SCH (08:37)
[2018-05-09] MEDS: CEFEPIME IV 2,000 MG in SYRINGE 7.5 ML IV SCH ×2 (08:37→20:07)
[2018-05-09] MEDS: PANTOprazole SOD 40 MG TAB PO SCH (08:38)
[2018-05-09] MEDS: POTASSIUM CHLORIDE 20 MEQ TABCR PO SCH ×2 (08:38→21:27)
[2018-05-09] MEDS: GABAPENTIN 400 MG CAP PO SCH ×3 (08:38→21:26)
[2018-05-09] MEDS: DOXYCYCLINE HYCLATE 100 MG CAP PO SCH ×2 (08:38→21:26)
[2018-05-09] MEDS: DOCUSATE SODIUM 100 MG CAP PO SCH ×2 (08:38→21:26)
[2018-05-09] MEDS: METOPROLOL SUCC 25MG EXT REL TAB PO SCH ×2 (08:38→21:26)
[2018-05-09] MEDS: NICOTINE 14 MG/24 HR TDSY TD SCH (08:39)
[2018-05-09] MEDS: TRAMADOL HCL 50 MG TAB PO PRN ×2 (08:42→17:48)
[2018-05-09 15:09] VITALS: BP 123/75; PULSE 100; TEMP 36.8; O2SAT 95
[2018-05-09 16:30] VITALS: O2SAT 95
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
[2018-05-09 21:25] VITALS: BP 139/78; PULSE 89
[2018-05-09] MEDS: ARIPIprazole TAB 10 MG TAB PO SCH (21:26)
[2018-05-09] MEDS: MoRPHine SULFATE 4 MG/ML 1 ML CARP\\VIAL IV PRN (23:59)
[2018-05-10] VITALS: BP 148/68; PULSE 94; TEMP 36.6; O2SAT 95
[2018-05-10] MEDS: ENOXAPARIN 40 MG/0.4 ML SYR SC SCH (06:11)
[2018-05-10 07:41] VITALS: BP 121/70; PULSE 84; TEMP 36.8; O2SAT 97
[2018-05-10] MEDS: ATORVASTATIN 40 MG TAB PO SCH (07:59)
[2018-05-10] MEDS: DULOXETINE HCL 60 MG CAP PO SCH (07:59)
[2018-05-10] MEDS: INSULIN GLARGINE SOLOSTAR 100 UNITS/ML 3 ML PEN SQ SCH ×2 (07:59→21:12)
[2018-05-10] MEDS: INSULIN ASPART 100 UNITS/ML 3 ML PEN SC SCH ×4 (07:59→21:12)
[2018-05-10] MEDS: DOXYCYCLINE HYCLATE 100 MG CAP PO SCH (08:06)
[2018-05-10] MEDS: ASPIRIN 81 MG ECTAB PO SCH (08:06)
[2018-05-10] MEDS: GABAPENTIN 400 MG CAP PO SCH ×3 (08:06→21:06)
[2018-05-10] MEDS: CEFEPIME IV 2,000 MG in SYRINGE 7.5 ML IV SCH (08:06)
[2018-05-10] MEDS: LISINOPRIL 10 MG TAB PO SCH (08:06)
[2018-05-10] MEDS: PANTOprazole SOD 40 MG TAB PO SCH (08:07)
[2018-05-10] MEDS: DOCUSATE SODIUM 100 MG CAP PO SCH ×2 (08:07→21:06)
[2018-05-10] MEDS: METOPROLOL SUCC 25MG EXT REL TAB PO SCH ×2 (08:07→21:06)
[2018-05-10] MEDS: NICOTINE 14 MG/24 HR TDSY TD SCH (08:07)
[2018-05-10] MEDS: POTASSIUM CHLORIDE 20 MEQ TABCR PO SCH ×2 (08:08→21:06)
[2018-05-10] MEDS: TRAMADOL HCL 50 MG TAB PO PRN (14:53)
[2018-05-10 15:44] VITALS: BP 113/60; PULSE 91; TEMP 36.8; O2SAT 96
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
[2018-05-10] MEDS ORDERED: LACTOBACILLUS ACIDOPHILUS (FLORANEX) TAB PO ONE (18:21)
[2018-05-10] MEDS ORDERED: CLINDAMYCIN HCL 150 MG CAP PO ONE (18:21)
[2018-05-10] MEDS ORDERED: CLC150 PO (18:32)
[2018-05-10] MEDS: RIVAROXABAN 20 MG TAB PO SCH (19:47)
[2018-05-10] MEDS: ARIPIprazole TAB 10 MG TAB PO SCH (21:06)
[2018-05-10 22:32] VITALS: BP 135/84; PULSE 91; TEMP 36.8; O2SAT 96
[2018-05-10 23:50] VITALS: O2SAT 96
[2018-05-11] MEDS: CLINDAMYCIN HCL 150 MG CAP PO SCH ×4 (00:18→17:14)
[2018-05-11 07:21] VITALS: BP 124/66; PULSE 88; TEMP 36.6; O2SAT 93
[2018-05-11] MEDS: INSULIN GLARGINE SOLOSTAR 100 UNITS/ML 3 ML PEN SQ SCH ×2 (08:03→21:01)
[2018-05-11] MEDS: INSULIN ASPART 100 UNITS/ML 3 ML PEN SC SCH ×4 (08:04→21:01)
[2018-05-11] MEDS: GABAPENTIN 400 MG CAP PO SCH ×3 (08:13→21:00)
[2018-05-11] MEDS: DOCUSATE SODIUM 100 MG CAP PO SCH ×2 (08:13→21:00)
[2018-05-11] MEDS: DULOXETINE HCL 60 MG CAP PO SCH (08:13)
[2018-05-11] MEDS: ASPIRIN 81 MG ECTAB PO SCH (08:13)
[2018-05-11] MEDS: POTASSIUM CHLORIDE 20 MEQ TABCR PO SCH ×2 (08:14→21:02)
[2018-05-11] MEDS: LACTOBACILLUS ACIDOPHILUS (FLORANEX) TAB PO SCH ×3 (08:14→17:14)
[2018-05-11] MEDS: LISINOPRIL 10 MG TAB PO SCH (08:14)
[2018-05-11] MEDS: NICOTINE 14 MG/24 HR TDSY TD SCH (08:15)
[2018-05-11] MEDS: ATORVASTATIN 40 MG TAB PO SCH (08:15)
[2018-05-11] MEDS: METOPROLOL SUCC 25MG EXT REL TAB PO SCH ×2 (08:15→21:02)
[2018-05-11] MEDS: PANTOprazole SOD 40 MG TAB PO SCH (08:15)
[2018-05-11] MEDS: TRAMADOL HCL 50 MG TAB PO PRN (11:49)
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
[2018-05-11] MEDS ORDERED: LCTX PO (14:21)
[2018-05-11] MEDS ORDERED: TRAM-10 PO (14:44)
[2018-05-11 15:20] VITALS: BP_SYST 119; BP_SYST 136; BP_DIAS 76; BP_DIAS 80; PULSE 101; TEMP 36.8; O2SAT 95
[2018-05-11] MEDS: RIVAROXABAN 20 MG TAB PO SCH (17:14)
[2018-05-11 20:55] VITALS: BP 131/77; PULSE 94
[2018-05-11] MEDS: ARIPIprazole TAB 10 MG TAB PO SCH (21:00)
[2018-05-12] MEDS: TRAMADOL HCL 50 MG TAB PO PRN (00:02)
[2018-05-12 00:12] VITALS: BP 116/76; PULSE 89; TEMP 36.7; O2SAT 92
[2018-05-12] MEDS: CLINDAMYCIN HCL 150 MG CAP PO SCH ×4 (06:15→17:20)
[2018-05-12 07:16] VITALS: BP 126/77; PULSE 82; TEMP 36.6; O2SAT 93
[2018-05-12] MEDS: ATORVASTATIN 40 MG TAB PO SCH (08:11)
[2018-05-12] MEDS: LACTOBACILLUS ACIDOPHILUS (FLORANEX) TAB PO SCH ×3 (08:11→18:48)
[2018-05-12] MEDS: DOCUSATE SODIUM 100 MG CAP PO SCH ×2 (08:12→21:08)
[2018-05-12] MEDS: GABAPENTIN 400 MG CAP PO SCH ×3 (08:12→21:05)
[2018-05-12] MEDS: DULOXETINE HCL 60 MG CAP PO SCH (08:12)
[2018-05-12] MEDS: PANTOprazole SOD 40 MG TAB PO SCH (08:12)
[2018-05-12] MEDS: LISINOPRIL 10 MG TAB PO SCH (08:13)
[2018-05-12] MEDS: POTASSIUM CHLORIDE 20 MEQ TABCR PO SCH ×2 (08:13→21:06)
[2018-05-12] MEDS: ASPIRIN 81 MG ECTAB PO SCH (08:14)
[2018-05-12] MEDS: INSULIN GLARGINE SOLOSTAR 100 UNITS/ML 3 ML PEN SQ SCH ×2 (08:32→21:04)
[2018-05-12] MEDS: INSULIN ASPART 100 UNITS/ML 3 ML PEN SC SCH ×4 (08:32→21:04)
[2018-05-12] MEDS: NICOTINE 14 MG/24 HR TDSY TD SCH (08:34)
[2018-05-12] MEDS: METOPROLOL SUCC 25MG EXT REL TAB PO SCH ×2 (09:40→21:38)
[2018-05-12 14:47] VITALS: BP 133/80; PULSE 87; TEMP 36.7; O2SAT 93
[2018-05-12] MEDS: RIVAROXABAN 20 MG TAB PO SCH (17:20)
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
[2018-05-12] MEDS: ARIPIprazole TAB 10 MG TAB PO SCH (21:06)
[2018-05-12 21:11] VITALS: BP 137/80; PULSE 88
[2018-05-13] VITALS: BP 117/72; PULSE 86; TEMP 36.6; O2SAT 92
[2018-05-13] MEDS: CLINDAMYCIN HCL 150 MG CAP PO SCH ×3 (00:37→13:29)
[2018-05-13] MEDS: TRAMADOL HCL 50 MG TAB PO PRN (05:06)
[2018-05-13 07:21] VITALS: BP 125/74; PULSE 83; TEMP 36.7; O2SAT 95
[2018-05-13] MEDS: LACTOBACILLUS ACIDOPHILUS (FLORANEX) TAB PO SCH ×2 (08:03→13:29)
[2018-05-13] MEDS: POTASSIUM CHLORIDE 20 MEQ TABCR PO SCH (08:04)
[2018-05-13] MEDS: LISINOPRIL 10 MG TAB PO SCH (08:04)
[2018-05-13] MEDS: DOCUSATE SODIUM 100 MG CAP PO SCH (08:04)
[2018-05-13] MEDS: METOPROLOL SUCC 25MG EXT REL TAB PO SCH (08:04)
[2018-05-13] MEDS: ASPIRIN 81 MG ECTAB PO SCH (08:05)
[2018-05-13] MEDS: ATORVASTATIN 40 MG TAB PO SCH (08:34)
[2018-05-13] MEDS: GABAPENTIN 400 MG CAP PO SCH ×2 (08:34→14:00)
[2018-05-13] MEDS: DULOXETINE HCL 60 MG CAP PO SCH (08:34)
[2018-05-13] MEDS: PANTOprazole SOD 40 MG TAB PO SCH (08:34)
[2018-05-13] MEDS: INSULIN ASPART 100 UNITS/ML 3 ML PEN SC SCH ×2 (08:44→13:28)
[2018-05-13] MEDS: NICOTINE 14 MG/24 HR TDSY TD SCH (08:45)
[2018-05-13] MEDS ORDERED: INSULIN GLARGINE SQ SCH (09:00)
[2018-05-13] MEDS ORDERED: HYDR50CA2 PO (12:03)
[2018-05-13] MEDS ORDERED: METO25TA3 PO (12:03)
[2018-05-13] MEDS ORDERED: PANT40TA PO (12:03)
[2018-05-13] MEDS ORDERED: XRL10 PO (12:03)
[2018-05-13] MEDS ORDERED: CLC150 PO (12:03)
[2018-05-13] MEDS ORDERED: CYM60 PO (12:03)
[2018-05-13] MEDS ORDERED: LPT/40 PO (12:03)
[2018-05-13] MEDS ORDERED: NVLGI/PEN SQ (12:03)
[2018-05-13] MEDS ORDERED: LISI-461 PO (12:03)
[2018-05-13] MEDS ORDERED: INSDGIPEN SQ (12:03)
[2018-05-13] MEDS ORDERED: NRN400 PO (12:03)
[2018-05-13] MEDS ORDERED: ARIP1TAB15 PO (12:03)
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
[2018-05-13] MEDS ORDERED: INSU32MI13 SC (13:02)
[2018-05-13 13:34] VITALS: BP 125/74; PULSE 83; TEMP 36.7; O2SAT 95
[2018-05-19] MEDS ORDERED: SULF800T23 PO (11:54)
== END 2018-05-13 14:17 | disposition home health service (06) | DRG 935 ==
LOC: C.EDB 21:26 → C.2T 05-05 01:23 → ENRESERV 05-05 01:59 → C.MS2W 05-05 20:56
PROVIDERS: ADMIT Hospitalist; ATTEND Hospitalist
PROC: 0HDNXZZ Extraction of Left Foot Skin, External Approach (ICD-10-PCS; principal; 2018-05-05)
PROC: 0HDMXZZ Extraction of Right Foot Skin, External Approach (ICD-10-PCS; principal; 2018-05-05)
DX: T25.022A Burn of unspecified degree of left foot, initial encounter (principal); L03.115 Cellulitis of right lower limb; E11.69 Type 2 diabetes mellitus with other specified complication; E11.49 Type 2 diabetes mellitus with other diabetic neurological complication; E11.43 Type 2 diabetes mellitus with diabetic autonomic (poly)neuropathy; T25.021A Burn of unspecified degree of right foot, initial encounter; I10 Essential (primary) hypertension; Z86.718 Personal history of other venous thrombosis and embolism; F79 Unspecified intellectual disabilities; G47.33 Obstructive sleep apnea (adult) (pediatric); Z82.49 Family history of ischemic heart disease and other diseases of the circulatory system; F17.200 Nicotine dependence, unspecified, uncomplicated; Z79.4 Long term (current) use of insulin; E78.5 Hyperlipidemia, unspecified; F39 Unspecified mood [affective] disorder; R07.89 Other chest pain; Z91.14 Patient's other noncompliance with medication regimen; Z83.3 Family history of diabetes mellitus; X19.XXXA Contact with other heat and hot substances, initial encounter; Y92.89 Other specified places as the place of occurrence of the external cause; B95.62 Methicillin resistant Staphylococcus aureus infection as the cause of diseases classified elsewhere; Y92.488 Other paved roadways as the place of occurrence of the external cause

== ENCOUNTER 2018-05-14 22:09 | Emergency (ER) | payer OTHER ==
[~2018-05-14] VITALS: Ht 190.5 cm; Wt 133.4 kg
[~2018-05-14 22:09] MED LIST changes: -CIPR1TAB10 PO; +CLC150 PO; +INSU32MI13 SC; +LCTX PO
[2018-05-14 22:13] VITALS: TEMP 36.7; Ht 190.5 cm; Wt 133.4 kg
[2018-05-14] MEDS ORDERED: SODIUM CHLORIDE 0.9% 1000ML 1,000 ML IV ONE (23:00)
[2018-05-14] MEDS ORDERED: CLINDAMYCIN IV 900 MG in DEXTROSE 5% 100ML 100 ML IV ONE (23:00)
[2018-05-14] MEDS ORDERED: ACETAMINOPHEN IV 100 ML IV ONE (23:00)
[2018-05-14] MEDS ORDERED: RIVAROXABAN TAB 15 MG TAB PO ONE (23:00)
[2018-05-14 23:40] LABS: BASO % 0.8 %; BASO ABS # 0.09 K/uL (0-0.2); EOS ABS # 0.32 K/uL (0-0.5); HEMATOCRIT 42.3 % (42-52); HEMOGLOBIN 14.4 g/dL (14.0-18.0); IG# 0.24 K/uL (0.00-0.02); LYMPH ABS # 3.42 K/uL (1.2-3.4); MEAN CELL VOLUME 84.8 fL (80-100); MEAN CORPUSCULAR HEMOGLOBIN 28.9 pg (25-34); MEAN PLATELET VOLUME 9.4 fL (7.4-10.4); MONO % 9.8 %; MONO ABS # 1.05 K/uL (0.11-0.59); NEUT % 52.2 %; NEUT ABS # 5.57 K/uL (1.4-6.5); PLATELET COUNT 284 K/uL (130-400); RED CELL DISTRIBUTION WIDTH CV 13.1 % (11.5-14.5); RED CELL DISTRIBUTION WIDTH SD 40.1 fL (36.4-46.3); WHITE BLOOD COUNT 10.69 K/uL (4.8-10.8)
[2018-05-15 00:03] LABS: ALBUMIN 3.5 gm/dl (3.4-5.0); CALCIUM 8.8 mg/dl (8.5-10.1); CREATININE 0.94 mg/dl (0.60-1.40); POTASSIUM 3.9 mmol/L (3.5-5.1); TOTAL PROTEIN 7.6 gm/dl (6.4-8.2)
[2018-05-15] MEDS ORDERED: SODIUM CHLORIDE 0.9% 1000ML 1,000 ML IV ONE (00:30)
[2018-05-15 01:46] VITALS: BP 144/90; PULSE 89; O2SAT 98
--- NOTE | 2018-05-15 03:10 | EMERGENCY ROOM VISIT NOTE ---
History First contact with patient: 22:38 Chief Complaint: OTHER COMPLAINT Stated Complaint: SEVERE CHEST PAIN, BOTH ARMS, RIGHT LEG History of Present Illness The patient is a 42 year old male who presents to the Emergency Room with complaints of right foot pain and left-sided chest pain. The patient states his symptoms have worsened over the past 12 hours and he does not have injury or trauma to explain his symptoms. The patient is well-known to this department. He was recently admitted to the facility for about a week for a diabetic wound on his foot. He received IV antibiotics and wound care follow-up while admitted. Wound cultures grew MRSA and the patient was discharged yesterday with prescriptions for clindamycin and Xarelto. The patient states that he took his morning dose of clindamycin but was not able to get his Xarelto filled. The patient does have home nursing services in place, however when the home nurse came to his house today the patient was not there. The patient states that he "forgot" about these services and went to a birthday green party. Because of the birthday green party he did not take his evening antibiotics. The patient is nonadherent with his medications, and will intermittently stop taking his medications altogether. He rates his current discomfort a 10/10 in his foot and a 5/10 in his chest. He admits that his chest pain is normal for him and has been ongoing for months. He does not have lightheadedness or dizziness. No fever or chills. Review of Systems More than 10 systems were reviewed and otherwise negative with the exception of history of present illness. Past Medical/Surgical History Medical Problems: (1) Depression (2) Depression (3) Diabetes mellitus with neurological manifestation (4) Diabetes mellitus, type 2 (5) Diabetic foot infection (6) DM type 2 (diabetes mellitus, type 2) (7) Foot abscess (8) Gastroparesis (9) History of DVT (deep vein thrombosis) (10) History of ventricular tachycardia (11) HTN (hypertension) (12) IBS (irritable bowel syndrome) (13) Intellectual disability (14) Intellectual disability (15) Nicotine dependence (16) Obesity (17) Obstructive sleep apnea Surgical Problems: (1) S/P left knee arthroscopy (2) S/P tonsillectomy (3) Status post incision and drainage Social History Problems: (1) Alcohol abuse Family History Cancer Diabetes mellitus MOTHER GRANDMOTHER UNCLE AUNT Gallbladder disease Heart disease Hypertension MOTHER FATHER Lung disease Social History Smoking Status: Current Every Day Smoker Alcohol Use: heavy Drug Use: none Marital Status: Housing Status: lives with family Occupation Status: unemployed Current/Historical Medications Scheduled Aripiprazole (Aripiprazole), 10 MG PO HS Aspirin (Aspirin Ec), 81 MG PO DAILY Atorvastatin (Lipitor), 40 MG PO DAILY Clindamycin HCl (Clindamycin HCl), 450 MG PO Q6 Duloxetine HCl (Duloxetine HCl), 60 MG PO DAILY Gabapentin (Gabapentin), 400 MG PO TID Insulin Aspart (Novolog Flexpen), 28 UNITS SQ AC Insulin Glargine (Lantus Solostar), 50 UNITS SQ BID Lactobacillus Acidophilus (Lactinex), 1 TAB PO TIDM Lisinopril (Lisinopril), 10 MG PO DAILY Metoprolol Succ (Toprol Xl) (Toprol-Xl), 12.5 MG PO BID Pantoprazole (Protonix), 40 MG PO DAILY Rivaroxaban (Xarelto), 15 MG PO BID Scheduled PRN Acetaminophen (Tylenol), 1,000 MG PO Q6H PRN for Pain Hydroxyzine Pamoate (Vistaril), 50 MG PO Q6H PRN for Anxiety Polyethylene Glycol 3350 (Miralax), 17 GM PO DAILY PRN for Constipation Tramadol (Ultram), 50 MG PO Q6H PRN for Pain Durable Medical Equipment Insulin Pen Needle (Bd Pen Needle/Nia/Ultra), EA SC DIRECTED Physical Exam Vital Signs Date Time Temp Pulse Resp B/P (MAP) Pulse Ox O2 Delivery O2 Flow Rate FiO2 05/15/18 01:46 89 18 144/90 98 05/15/18 00:32 87 16 141/86 96 Room Air 05/14/18 22:13 36.7 118 18 154/80 95 Room Air Physical Exam VITALS: Vitals are noted on the nurse's note and reviewed by myself. Vital signs stable. GENERAL: White male who does not appear in acute distress. He is cooperative with the examination. HEART: Regular rate and rhythm without murmurs gallops or rubs. LUNGS: Clear to auscultation bilaterally without wheezes, rales or rhonchi. No retractions or accessory muscle use. CHEST: No tenderness on palpation throughout the chest wall ABDOMEN: Positive normal bowel sounds x 4. Soft, nontender, without masses or organomegaly. No guarding or rebound tenderness. MUSCULOSKELETAL: There is a wound on the plantar aspect of the right foot. This appears to be a rather large blister that has been deroofed. There is no obvious cellulitis, erythema, or edema. No purulence. The right foot is also without obvious worsening infection. No lymphangitic streaking. The patient is able to move his toes and ambulate. Medical Decision & Procedures Laboratory Results 05/14/18 23:00 Red Blood Count 4.99, Mean Corpuscular Volume 84.8, Mean Corpuscular Hemoglobin 28.9, Mean Corpuscular Hemoglobin Concent 34.0, Mean Platelet Volume 9.4, Neutrophils (%) (Auto) 52.2, Lymphocytes (%) (Auto) 32.0, Monocytes (%) (Auto) 9.8, Eosinophils (%) (Auto) 3.0, Basophils (%) (Auto) 0.8, Neutrophils # (Auto) 5.57, Lymphocytes # (Auto) 3.42, Monocytes # (Auto) 1.05, Eosinophils # (Auto) 0.32, Basophils # (Auto) 0.09 05/14/18 23:00 Test 05/14/18 23:00 05/14/18 23:07 05/15/18 01:34 White Blood Count 10.69 K/uL (4.8-10.8) Red Blood Count 4.99 M/uL (4.7-6.1) Hemoglobin 14.4 g/dL (14.0-18.0) Hematocrit 42.3 % (42-52) Mean Corpuscular Volume 84.8 fL (80-100) Mean Corpuscular Hemoglobin 28.9 pg (25-34) Mean Corpuscular Hemoglobin Concent 34.0 g/dl (32-36) Platelet Count 284 K/uL (130-400) Mean Platelet Volume 9.4 fL (7.4-10.4) Neutrophils (%) (Auto) 52.2 % Lymphocytes (%) (Auto) 32.0 % Monocytes (%) (Auto) 9.8 % Eosinophils (%) (Auto) 3.0 % Basophils (%) (Auto) 0.8 % Neutrophils # (Auto) 5.57 K/uL (1.4-6.5) Lymphocytes # (Auto) 3.42 K/uL (1.2-3.4) Monocytes # (Auto) 1.05 K/uL (0.11-0.59) Eosinophils # (Auto) 0.32 K/uL (0-0.5) Basophils # (Auto) 0.09 K/uL (0-0.2) RDW Standard Deviation 40.1 fL (36.4-46.3) RDW Coefficient of Variation 13.1 % (11.5-14.5) Immature Granulocyte % (Auto) 2.2 % Immature Granulocyte # (Auto) 0.24 K/uL (0.00-0.02) Anion Gap 9.0 mmol/L (3-11) Est Creatinine Clear Calc Drug Dose 147.6 ml/min Estimated GFR () 113.8 Estimated GFR (Non- 98.2 BUN/Creatinine Ratio 20.0 (10-20) Calcium Level 8.8 mg/dl (8.5-10.1) Total Bilirubin 0.4 mg/dl (0.2-1) Aspartate Amino Transf (AST/SGOT) 17 U/L (15-37) Alanine Aminotransferase (ALT/SGPT) 52 U/L (12-78) Alkaline Phosphatase 74 U/L (45-117) Total Protein 7.6 gm/dl (6.4-8.2) Albumin 3.5 gm/dl (3.4-5.0) Globulin 4.1 gm/dl (2.5-4.0) Albumin/Globulin Ratio 0.9 (0.9-2) Bedside Troponin I < 0.030 ng/ml (0-0.045) Bedside Lactic Acid Venous 1.52 mmol/L (0.90-1.70) Medications Administered Medications (Trade) Dose Ordered Sig/Mario Alberto Route Start Time Stop Time Status Last Admin Dose Admin Clindamycin Phosphate 900 mg/ Dextrose 106 ml @ 100 mls/hr ONE ONCE IV 05/14/18 23:00 05/15/18 00:03 DC 05/14/18 23:28 100 MLS/HR Rivaroxaban (Xarelto Tab) 15 mg NOW ONCE PO 05/14/18 23:00 05/14/18 23:01 DC 05/14/18 23:14 15 MG Acetaminophen 100 ml @ 400 mls/hr NOW ONCE IV 05/14/18 23:00 05/14/18 23:14 DC 05/14/18 23:00 400 MLS/HR Sodium Chloride 1,000 ml @ 999 mls/hr Q1H1M ONCE IV 05/14/18 23:00 05/15/18 00:00 DC 05/14/18 23:14 999 MLS/HR Sodium Chloride 1,000 ml @ 999 mls/hr Q1H1M ONCE IV 05/15/18 00:30 05/15/18 01:30 DC 05/15/18 00:30 999 MLS/HR ECG Per My Interpretation Change: Sinus tachycardia with occasional Premature ventricular complexes @109 bpm Otherwise normal ECG When compared with ECG of 05-MAY-2018 06:28, Premature ventricular complexes are now Present ED Course Physical exam and history were performed. Nursing notes, EMR, and Medication List were personally reviewed. Patient appears to have right foot pain as well as left-sided chest pain. EKG was performed and reviewed by myself as above. IV access was established and labs were obtained. Lactic acid and blood cultures were obtained. The patient has missed his evening dose of clindamycin and he was given a dose of this through the IV here in the department. He was also given 1 g IV Tylenol. He was placed on the personnel monitor. The patient was not able to get his Xarelto filled yet and I did give him a dose of this in the department. The patient's blood work is as above and was reviewed. He does not have a significantly elevated white blood cell count, gross anemia, bandemia, or significant electrolyte imbalance. Transaminases are nondiagnostic. Troponin is negative. His sugar is elevated at 263. Blood cultures are pending. At this time his chest pain does not appear to be related to a cardiopulmonary event. The patient does have a mildly elevated lactic acid of just over 2 by our point- of-care machine. I discussed the case with my attending physician, Dr. Douglas, and we continued to hydrate the patient here in the department. After hydration we did repeat the [id number] lactic acid, which normalized. At this point the patient has been on antibiotics for a week and previous blood cultures have been negative. We have low suspicion for sepsis at this time. I discussed options of care with the patient. He was able to sleep comfortably here for greater than 2 hours without significant distress. I feel that much of the patient's symptoms are self-induced from nonadherence to his medications and medical plans. He has resources in place with home nursing as well as appropriate upcoming follow-ups. The patient was strongly encouraged to continue his medication as prescribed and not miss dosing. The patient is comfortable with discharge home and this seems reasonable. He was otherwise invited back to the ER with any new, worsening, or concerning symptoms. The chart was completed utilizing [employer] Speech Voice Recognition Software. Grammatical errors, random word insertions, pronoun errors, and incomplete sentences are an occasional consequence of this system due to software limitations, ambient noise, and hardware issues. Any formal questions or concerns about the content, text, or information contained within the body of this dictation should be directly addressed to the provider for clarification. . Medical Decision Differential diagnosis: Etiologies such as cellulitis, abscess, MRSA infection, DVT, necrotizing fasciitis, dermatitis, drug eruption, as well as others were entertained.. Impression Primary Impression: Right foot pain Additional Impressions: Nonadherence to medication Left-sided chest wall pain Departure Information Dispostion Home / Self-Care Condition [employer] HOME CARE DOCUMENTATION FORM, IMPORTANT VISIT INFORMATION Patient Instructions My [facility] Additional Instructions You were seen and evaluated today on an emergency basis only. This is not a substitute for, or an effort to provide, complete comprehensive medical care. It is not possible to recognize and treat all injuries or illnesses in a single emergency department visit. For this reason it is recommended that you followup with your primary care physician as scheduled for ongoing care and evaluation Continue your antibiotics as prescribed. You have home health nursing services. They will be able to assist you with wound care and dressing changes. If you do not take your medication as prescribed you could possibly lose your foot or develop a blood infection that could be fatal. You are welcome to return to the emergency department anytime with new, worsening, or concerning symptoms. Problem Qualifiers
[2018-05-19] MEDS ORDERED: SULF800T23 PO (11:54)
== END 2018-05-15 01:47 | disposition home or self-care (01) ==
LOC: C.EDB 22:10
DX: S91.301A Unspecified open wound, right foot, initial encounter (principal); X58.XXXA Exposure to other specified factors, initial encounter; R07.89 Other chest pain; Z91.14 Patient's other noncompliance with medication regimen; Z79.01 Long term (current) use of anticoagulants; F17.200 Nicotine dependence, unspecified, uncomplicated; Z79.82 Long term (current) use of aspirin; F32.9 Major depressive disorder, single episode, unspecified; E11.628 Type 2 diabetes mellitus with other skin complications; E11.43 Type 2 diabetes mellitus with diabetic autonomic (poly)neuropathy; K31.84 Gastroparesis; Z79.4 Long term (current) use of insulin; I10 Essential (primary) hypertension

== ENCOUNTER 2018-05-16 23:01 | Emergency (ER) | payer OTHER ==
[~2018-05-16] VITALS: Ht 190.5 cm; Wt 133.6 kg
[2018-05-16 23:04] VITALS: TEMP 36.7; Ht 190.5 cm; Wt 133.6 kg
[2018-05-16] MEDS ORDERED: ACETAMINOPHEN 500 MG TAB PO STA (23:34)
--- NOTE | 2018-05-16 23:35 | EMERGENCY ROOM VISIT NOTE ---
History Report prepared by Marianela: Cyndi Reyes Under the Supervision of: Dr. Jann Conway M.D. 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 He reports he was walking up the stairs when both of his legs gave out. He currently has pain on the outsides of his right shirley but denies any LOC, headache, or abdominal pain. The patient notes his leg had already been hurting before he fell today. He states he took Tramadol at 1700 today which he received from the clinic. 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 A total of 6 systems reviewed and were otherwise negative. Past Medical & Surgical Medical Problems: (1) Depression (2) Depression (3) Diabetes mellitus with neurological manifestation (4) Diabetes mellitus, type 2 (5) Diabetic foot infection (6) DM type 2 (diabetes mellitus, type 2) (7) Foot abscess (8) Gastroparesis (9) History of DVT (deep vein thrombosis) (10) History of ventricular tachycardia (11) HTN (hypertension) (12) IBS (irritable bowel syndrome) (13) Intellectual disability (14) Intellectual disability (15) Nicotine dependence (16) Obesity (17) Obstructive sleep apnea Surgical Problems: (1) S/P left knee arthroscopy (2) S/P tonsillectomy (3) Status post incision and drainage Social History Problems: (1) Alcohol abuse Family History Cancer Diabetes mellitus MOTHER GRANDMOTHER UNCLE AUNT Gallbladder disease Heart disease Hypertension MOTHER FATHER Lung disease Social History Smoking Status: Current Every Day Smoker Alcohol Use: heavy Drug Use: none Marital Status: Housing Status: lives with family Occupation Status: unemployed Current/Historical Medications Scheduled Aripiprazole (Aripiprazole), 10 MG PO HS Aspirin (Aspirin Ec), 81 MG PO DAILY Atorvastatin (Lipitor), 40 MG PO DAILY Clindamycin HCl (Clindamycin HCl), 450 MG PO Q6 Duloxetine HCl (Duloxetine HCl), 60 MG PO DAILY Gabapentin (Gabapentin), 400 MG PO TID Insulin Aspart (Novolog Flexpen), 28 UNITS SQ AC Insulin Glargine (Lantus Solostar), 50 UNITS SQ BID Lactobacillus Acidophilus (Lactinex), 1 TAB PO TIDM Lisinopril (Lisinopril), 10 MG PO DAILY Metoprolol Succ (Toprol Xl) (Toprol-Xl), 12.5 MG PO BID Pantoprazole (Protonix), 40 MG PO DAILY Rivaroxaban (Xarelto), 15 MG PO BID Scheduled PRN Acetaminophen (Tylenol), 1,000 MG PO Q6H PRN for Pain Hydroxyzine Pamoate (Vistaril), 50 MG PO Q6H PRN for Anxiety Polyethylene Glycol 3350 (Miralax), 17 GM PO DAILY PRN for Constipation Tramadol (Ultram), 50 MG PO Q6H PRN for Pain Durable Medical Equipment Insulin Pen Needle (Bd Pen Needle/Nia/Ultra), EA SC DIRECTED Allergies Coded Allergies: Cephalosporins (Verified Allergy, Unknown, CECLOR- RXN UNKNOWN. A CHILD. WILLING TO TRY CEP AGAIN, 12/08/17) NSAIDs (Verified Adverse Reaction, Unknown, gastroparesis, kidney problems , 05/16/18) Physical Exam Vital Signs Date Time Temp Pulse Resp B/P (MAP) Pulse Ox O2 Delivery O2 Flow Rate FiO2 05/17/18 01:11 94 18 135/75 97 05/16/18 23:04 36.7 103 18 130/80 95 Physical Exam GENERAL: Patient is well appearing and in no acute distress. EYES: No scleral icterus, unremarkable pupils. ENT: Mucous membranes moist, no nasal congestion. NECK: No masses appreciated, no meningismus, trachea is midline. GASTROINTESTINAL: Abdomen soft, nontender, no peritonitis. Bowel sounds positive. No masses appreciated. BACK: No midline tenderness, no CVA tenderness EXTREMITIES: Normal motion all extremities, no cyanosis. Vague tenderness of entire right lower leg from knee to just above ankle. No swelling, no erythema. Soft compartments. Wound boots bilateral feet. NEUROLOGIC: Alert and oriented, no acute motor or sensory deficits, no focal weakness, cranial nerves grossly intact. SKIN: No rash, no jaundice, no diaphoresis. Medical Decision & Procedures ER Provider Diagnostic Interpretation: Radiology results and stated below per my review and interpretation: 3 View Right TIb/Fib XRAY No fracture. No dislocation. No foreign body. Medications Administered Medications (Trade) Dose Ordered Sig/Mario Alberto Route Start Time Stop Time Status Last Admin Dose Admin Acetaminophen (Tylenol Tab) 1,000 mg NOW STAT PO 05/16/18 23:34 05/16/18 23:36 DC 05/16/18 23:40 1,000 MG ED Course 2330: The patient was evaluated in room C8. A complete history and physical exam was performed. 2334: Ordered Tylenol Tab 1000 mg PO 0105: Reevaluated the patient. He is feeling better and states he agrees he can go home. He will follow up with wound care. Discussed results and discharge instructions: He verbalized understanding and agreement. The patient is ready for discharge. Medical Decision 42 yr old male well known to department for variety of visits arrives today because right lower leg pain which may or may not have started when he fell on stairs. No head/neck injury nor headache. Xrays negative. US right leg negative. Wound doing OK. Will be seen for foot wounds later today. He is feeling better wishing to go home. States he has way to get to visit. He has no evidence of this being DVT, fracture, nec fasc, compartment syndrome, cellulitis nor other clear emergent issue at this time. Follow up with PCP and wound care as planned. Medication Reconcilliation Current Medication List: was personally reviewed by me Blood Pressure Screening Patient's blood pressure: Normal blood pressure Blood pressure disposition: Did not require urgent referral Impression Primary Impression: Pain of right lower leg Additional Impression: Contusion of leg, right Scribe Attestation The scribe's documentation has been prepared under my direction and personally reviewed by me in its entirety. I confirm that the note above accurately reflects all work, treatment, procedures, and medical decision making performed by me. Departure Information Dispostion Home / Self-Care Referrals Velasquez Valencia M.D. (PCP) Forms HOME CARE DOCUMENTATION FORM, IMPORTANT VISIT INFORMATION Patient Instructions My [facility] [email or web address] Additional Instructions Rest and avoid further injury. Use Ice as needed. Follow up with Wound Care later this morning as planned. Return if worsening pain or other concerns. Problem Qualifiers
[2018-05-17 01:11] VITALS: BP 135/75; PULSE 94; O2SAT 97
--- NOTE | 2018-05-17 06:25 | DIAGNOSTIC IMAGING REPORT ---
ULTRASOUND R VENOUS DOPP LOWER EXT UNILAT CLINICAL HISTORY: Right calf pain COMPARISON STUDY: 05/08/2018 FINDINGS: Real-time and color flow Doppler imaging were performed. Flow was seen within the femoral, popliteal and calf veins with no intraluminal thrombus demonstrated. The saphenous vein is patent. IMPRESSION: No evidence of right lower extremity DVT. Electronically signed by: Ortiz Driscoll M.D. 05/17/2018 6:24 AM Dictated Date/Time: 05/17/2018 6:23 AM
--- NOTE | 2018-05-17 06:49 | DIAGNOSTIC IMAGING REPORT ---
R TIBIA/FIBULA 5 VIEWS ROUTINE CLINICAL HISTORY: Right lower leg pain status post trauma COMPARISON: None. DISCUSSION: No fractures or dislocations are visualized. There are degenerative changes present at the level of the ankle. There is lateral spurring of the talus, likely chronic. IMPRESSION: No acute fractures identified. Electronically signed by: Ortiz Driscoll M.D. 05/17/2018 6:47 AM Dictated Date/Time: 05/17/2018 6:46 AM
== END 2018-05-17 01:12 | disposition home or self-care (01) ==
LOC: C.EDC 23:01 → EDBD 23:01 → C.EDC 05-17 01:12
DX: M79.661 Pain in right lower leg (principal); S80.11XA Contusion of right lower leg, initial encounter; W10.9XXA Fall (on) (from) unspecified stairs and steps, initial encounter; F32.9 Major depressive disorder, single episode, unspecified; E11.49 Type 2 diabetes mellitus with other diabetic neurological complication; E11.43 Type 2 diabetes mellitus with diabetic autonomic (poly)neuropathy; I10 Essential (primary) hypertension; F79 Unspecified intellectual disabilities; F17.200 Nicotine dependence, unspecified, uncomplicated; Z86.718 Personal history of other venous thrombosis and embolism; Z79.82 Long term (current) use of aspirin; Z79.4 Long term (current) use of insulin; Z79.899 Other long term (current) drug therapy; Z88.1 Allergy status to other antibiotic agents; Z88.6 Allergy status to analgesic agent

== ENCOUNTER 2018-06-01 21:45 | Emergency (ER) | payer OTHER ==
[~2018-06-01 21:45] MED LIST changes: -CLC150 PO; +SULF800T23 PO
[2018-06-01 21:47] VITALS: Ht 190.5 cm
[2018-06-01 21:53] VITALS: O2SAT 96
[2018-06-01 22:45] VITALS: TEMP 36.8
[2018-06-01] MEDS ORDERED: SODIUM CHLORIDE 0.9% 500ML 500 ML IV STA (22:55)
[2018-06-01] MEDS ORDERED: OXYCODONE HCL IR 5 MG TAB (IMMEDIATE RELEASE) PO STA (22:55)
[2018-06-01] MEDS ORDERED: ACETAMINOPHEN 500 MG TAB PO STA (23:01)
[2018-06-01 23:03] LABS: HEMOGLOBIN 14.9 g/dL (14.0-18.0); MEAN CELL VOLUME 85.8 fL (80-100); MEAN CORPUSCULAR HEMOGLOBIN 29.7 pg (25-34); MEAN CORPUSCULAR HGB CONC 34.7 g/dl (32-36); MEAN PLATELET VOLUME 9.3 fL (7.4-10.4); PLATELET COUNT 263 K/uL (130-400); RED CELL DISTRIBUTION WIDTH CV 13.4 % (11.5-14.5); RED CELL DISTRIBUTION WIDTH SD 41.8 fL (36.4-46.3)
[2018-06-01 23:09] LABS: INR 1.2 (0.9-1.1)
[2018-06-01 23:15] LABS: ALBUMIN 3.5 gm/dl (3.4-5.0); ALKALINE PHOSPHATASE 79 U/L (45-117); ALT/SGPT 28 U/L (12-78); AST/SGOT 15 U/L (15-37); BLOOD UREA NITROGEN 14 mg/dl (7-18); CALCIUM 8.5 mg/dl (8.5-10.1); CARBON DIOXIDE 26 mmol/L (21-32); CREATININE 1.05 mg/dl (0.60-1.40); GLUCOSE 217 mg/dl (70-99); SODIUM 137 mmol/L (136-145); TOTAL PROTEIN 7.7 gm/dl (6.4-8.2)
[2018-06-01] MEDS ORDERED: ABL/5 PO (23:15)
[2018-06-01] MEDS ORDERED: ATOR-24 PO (23:17)
[2018-06-01] MEDS ORDERED: DULO60CA44 PO (23:17)
[2018-06-01] MEDS ORDERED: GABA-1220 PO (23:18)
[2018-06-01] MEDS ORDERED: HYDR50CA2 PO (23:19)
[2018-06-01] MEDS ORDERED: INSU100I23 SQ (23:22)
[2018-06-01] MEDS ORDERED: INSDGIPEN SQ (23:23)
[2018-06-01] MEDS ORDERED: LISI-461 PO (23:25)
[2018-06-01] MEDS ORDERED: METO25TA4 PO (23:26)
[2018-06-01] MEDS ORDERED: PANT40TA PO (23:27)
[2018-06-01] MEDS ORDERED: XRL10 PO (23:28)
[2018-06-01] MEDS ORDERED: TRAM-10 PO (23:29)
[2018-06-01] MEDS ORDERED: LCTX PO (23:31)
[2018-06-02 00:58] VITALS: BP 134/71; PULSE 97; O2SAT 96
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
--- NOTE | 2018-06-02 06:53 | DIAGNOSTIC IMAGING REPORT ---
R VENOUS DOPP LOWER EXT UNILAT CLINICAL HISTORY: trauma, history of dvt pain. Edema. TECHNIQUE: Venous Doppler COMPARISON STUDY: None FINDINGS: Normal study IMPRESSION: Normal study The above report was generated using voice recognition software. It may contain grammatical, syntax or spelling errors. Electronically signed by: Colt Sousa M.D. 06/02/2018 6:52 AM Dictated Date/Time: 06/02/2018 6:51 AM
--- NOTE | 2018-06-02 06:54 | DIAGNOSTIC IMAGING REPORT ---
R ANKLE MIN 3 VIEWS ROUTINE CLINICAL HISTORY: 42 years-old Male presenting with trauma, pain. TECHNIQUE: Frontal, mortise, and lateral views of the right ankle were obtained. COMPARISON: 10/13/2015. FINDINGS: Ankle mortise intact. No acute fracture or malalignment. Small enthesophyte at the insertion of the Achilles tendon. Mild degenerative changes of the ankle mortise. No radiographic soft tissue abnormality. IMPRESSION: No acute osseous injury. Electronically signed by: Delgado Diaz M.D. 06/02/2018 6:53 AM Dictated Date/Time: 06/02/2018 6:52 AM
--- NOTE | 2018-06-02 07:02 | DIAGNOSTIC IMAGING REPORT ---
CHEST ONE VIEW PORTABLE CLINICAL HISTORY: 42 years-old Male presenting with cp. TECHNIQUE: Portable upright AP view of the chest was obtained. COMPARISON: . FINDINGS: Cardiomediastinal silhouette normal. No focal opacity. No large effusion or pneumothorax. Osseous structures normal. IMPRESSION: 1. No acute cardiopulmonary disease. Electronically signed by: Delgado Diaz M.D. 06/02/2018 7:00 AM Dictated Date/Time: 06/02/2018 7:00 AM
== END 2018-06-02 01:16 | disposition home or self-care (01) ==
LOC: C.EDB 21:46 → C.EDA 06-02 01:16
DX: R07.9 Chest pain, unspecified (principal); M25.571 Pain in right ankle and joints of right foot; R00.1 Bradycardia, unspecified; I49.3 Ventricular premature depolarization; M79.602 Pain in left arm; E11.9 Type 2 diabetes mellitus without complications; F32.9 Major depressive disorder, single episode, unspecified; I10 Essential (primary) hypertension; K58.9 Irritable bowel syndrome, unspecified; G47.33 Obstructive sleep apnea (adult) (pediatric); F79 Unspecified intellectual disabilities; Z86.718 Personal history of other venous thrombosis and embolism; Z79.01 Long term (current) use of anticoagulants; Z79.4 Long term (current) use of insulin; Z79.899 Other long term (current) drug therapy; Z88.1 Allergy status to other antibiotic agents; Z88.6 Allergy status to analgesic agent; F17.200 Nicotine dependence, unspecified, uncomplicated

== ENCOUNTER 2018-06-07 21:36 | Emergency (ER) | payer OTHER ==
[~2018-06-07] VITALS: Ht 190.5 cm; Wt 138.0 kg
[~2018-06-07 21:36] MED LIST changes: +ABL/5 PO; -ARIP1TAB15 PO; -ASPI81TA28 PO; +ATOR-24 PO; -CYM60 PO; +DULO60CA44 PO; +GABA-1220 PO; -INSDGIPEN SQ; -INSU32MI13 SC; -LCTX PO; -LPT/40 PO; -METO25TA3 PO; -NRN400 PO; -NVLGI/PEN SQ; -PANT40TA PO; -SULF800T23 PO
[2018-06-07 21:47] VITALS: TEMP 37; O2SAT 95; Ht 190.5 cm; Wt 138.0 kg
[2018-06-07] MEDS ORDERED: OXYCODONE HCL IR 5 MG TAB (IMMEDIATE RELEASE) PO STA (22:16)
--- NOTE | 2018-06-07 22:23 | EMERGENCY ROOM VISIT NOTE ---
History Report prepared by Marianela: Tatiana Echeverria Under the Supervision of: Dr. Lewis Bowling M.D. First contact with patient: 22:13 Chief Complaint: CHEST PAIN Stated Complaint: CHEST PAIN Nursing Triage Summary: Pt brought in via EMS. Pt was walking from his apartment to his friends and all at once started having chest pain that started in the chest and went to his left shoulder and arm. History of Present Illness The patient is a 42 year old male who presents to the Emergency Room with complaints of constant chest pain that began about two hours ago while the patient was walking. The patient states he also has pain in both arms, but states that the left arm hurts the most. He states that the left arm hurts to move. The patient denies any falls. The patient also denies any nausea or abdominal pain. The patient states that he feels slightly short of breath and feverish. The patient states that this happens every once in awhile and he does not know what causes it but states he knows that it is not his heart. The patient denies any shoulder surgery. The patient states that he did not take any pain medication prior to arrival. The patient says he takes Xarelto. He also states that he is a current smoker. Source of History: patient Onset: two hours prior to arrival Position: chest Timing: constant Associated Symptoms: + fevers, + SOB, No nausea, No abdominal pain Note: additional symptoms: Pain in both arms with the left arm hurting more Review of Systems See HPI for pertinent positives and negatives. A total of ten systems were reviewed and were otherwise negative. Past Medical & Surgical Medical Problems: (1) Depression (2) Depression (3) Diabetes mellitus with neurological manifestation (4) Diabetes mellitus, type 2 (5) Diabetic foot infection (6) DM type 2 (diabetes mellitus, type 2) (7) Foot abscess (8) Gastroparesis (9) History of DVT (deep vein thrombosis) (10) History of ventricular tachycardia (11) HTN (hypertension) (12) IBS (irritable bowel syndrome) (13) Intellectual disability (14) Intellectual disability (15) Nicotine dependence (16) Obesity (17) Obstructive sleep apnea Surgical Problems: (1) S/P left knee arthroscopy (2) S/P tonsillectomy (3) Status post incision and drainage Social History Problems: (1) Alcohol abuse Family History Cancer Diabetes mellitus MOTHER GRANDMOTHER UNCLE AUNT Gallbladder disease Heart disease Hypertension MOTHER FATHER Lung disease Social History Smoking Status: Current Every Day Smoker Alcohol Use: heavy Drug Use: none Marital Status: Housing Status: lives with family Occupation Status: unemployed Current/Historical Medications Scheduled Aripiprazole (Aripiprazole), 10 MG PO HS Atorvastatin (Lipitor), 40 MG PO DAILY Duloxetine HCl (Duloxetine HCl), 60 MG PO DAILY Gabapentin (Gabapentin), 400 MG PO TIDM Insulin Glargine (Basaglar Kwikpen), 28 UNITS SQ UD Insulin Glargine (Lantus Solostar), 50 UNITS SQ BID Lactobacillus Acidophilus (Lactinex), 1 TAB PO TIDM Lisinopril (Lisinopril), 10 MG PO DAILY Metoprolol Succinate (Toprol Xl), 12.5 MG PO BID Pantoprazole (Protonix), 40 MG PO DAILY Rivaroxaban (Xarelto), 15 MG PO BID Scheduled PRN Acetaminophen (Tylenol), 1,000 MG PO Q6H PRN for Pain Hydroxyzine Pamoate (Vistaril), 50 MG PO Q6H PRN for Anxiety Polyethylene Glycol 3350 (Miralax), 17 GM PO DAILY PRN for Constipation Tramadol HCl (Tramadol HCl), 50 MG PO Q6H PRN for Pain Allergies Coded Allergies: Cephalosporins (Verified Allergy, Unknown, CECLOR- RXN UNKNOWN. A CHILD. WILLING TO TRY CEPHS AGAIN, 06/01/18) NSAIDs (Verified Adverse Reaction, Unknown, gastroparesis, kidney problems , 06/01/18) Physical Exam Vital Signs Date Time Temp Pulse Resp B/P (MAP) Pulse Ox O2 Delivery O2 Flow Rate FiO2 06/07/18 23:12 112 20 183/94 95 Room Air 06/07/18 22:24 118 14 153/100 94 Room Air 06/07/18 21:48 118 06/07/18 21:47 95 Room Air 06/07/18 21:47 95 Room Air 06/07/18 21:47 95 Room Air 06/07/18 21:47 37.0 117 17 147/88 95 Room Air Physical Exam GENERAL: Awake, alert, well-appearing, in no distress HENT: Normocephalic, atraumatic. Oropharynx unremarkable. EYES: Normal conjunctiva. Sclera non-icteric. NECK: Supple. No nuchal rigidity. RESPIRATORY: Clear to auscultation. No wheezes. Normal respiratory effort. CARDIAC: Tachycardic. Extremities warm and well perfused. GI: Soft, non-distended. No tenderness to palpation. No rebound or guarding. No masses. RECTAL: Deferred. MUSCULOSKELETAL: Atraumatic. Chest examination reveals no tenderness. There is no CVA tenderness to palpation. Left shoulder tenderness into the left chest. LOWER EXTREMITIES: Calves are equal size bilaterally and non-tender. No edema NEURO: Normal sensorium. No sensory or motor deficits noted. No facial droop. SKIN: Warm and dry. No rash or jaundice noted. Medical Decision & Procedures ER Provider Diagnostic Interpretation: Radiology results as stated below per my review and radiologist interpretation: LEFT SHOULDER 3 VIEWS CLINICAL HISTORY: Left shoulder pain. FINDINGS: 3 views of the left shoulder are compared to study dated 08/05/2014. The skeletal structures are well mineralized. No fracture or dislocation is seen. Productive degenerative change is noted at the acromioclavicular joint. The glenohumeral articulation is preserved. The overlying soft tissues are within normal limits. The imaged left upper lobe lung parenchyma appears clear. IMPRESSION: No acute bony abnormality is identified in the left shoulder. Electronically signed by: Jaydon Wallace M.D. 06/07/2018 10:46 PM Dictated Date/Time: 06/07/2018 10:45 PM SINGLE VIEW CHEST CLINICAL HISTORY: Atypical chest pain. FINDINGS: 2 AP, portable, upright chest radiographs are compared to study dated 06/02/2018 and correlated with chest CT dated 10/27/2017. The examination is degraded by portable technique, apical lordotic positioning, large body habitus, and patient rotation. The heart is top normal for projection. The lungs and pleural spaces are clear. No pneumothorax is seen. The bony thorax is grossly intact. IMPRESSION: No acute cardiopulmonary abnormality and no significant change from prior studies. Electronically signed by: Jaydon Wallace M.D. 06/07/2018 10:49 PM Dictated Date/Time: 06/07/2018 10:48 PM Laboratory Results 06/07/18 22:00 Red Blood Count 4.74, Mean Corpuscular Volume 85.9, Mean Corpuscular Hemoglobin 28.9, Mean Corpuscular Hemoglobin Concent 33.7, Mean Platelet Volume 9.0, Neutrophils (%) (Auto) 56.1, Lymphocytes (%) (Auto) 31.1, Monocytes (%) (Auto) 7.8, Eosinophils (%) (Auto) 3.6, Basophils (%) (Auto) 0.6, Neutrophils # (Auto) 5.20, Lymphocytes # (Auto) 2.88, Monocytes # (Auto) 0.72, Eosinophils # (Auto) 0.33, Basophils # (Auto) 0.06 06/07/18 22:00 Test 06/07/18 22:00 White Blood Count 9.26 K/uL (4.8-10.8) Red Blood Count 4.74 M/uL (4.7-6.1) Hemoglobin 13.7 g/dL (14.0-18.0) Hematocrit 40.7 % (42-52) Mean Corpuscular Volume 85.9 fL (80-100) Mean Corpuscular Hemoglobin 28.9 pg (25-34) Mean Corpuscular Hemoglobin Concent 33.7 g/dl (32-36) Platelet Count 245 K/uL (130-400) Mean Platelet Volume 9.0 fL (7.4-10.4) Neutrophils (%) (Auto) 56.1 % Lymphocytes (%) (Auto) 31.1 % Monocytes (%) (Auto) 7.8 % Eosinophils (%) (Auto) 3.6 % Basophils (%) (Auto) 0.6 % Neutrophils # (Auto) 5.20 K/uL (1.4-6.5) Lymphocytes # (Auto) 2.88 K/uL (1.2-3.4) Monocytes # (Auto) 0.72 K/uL (0.11-0.59) Eosinophils # (Auto) 0.33 K/uL (0-0.5) Basophils # (Auto) 0.06 K/uL (0-0.2) RDW Standard Deviation 41.3 fL (36.4-46.3) RDW Coefficient of Variation 13.1 % (11.5-14.5) Immature Granulocyte % (Auto) 0.8 % Immature Granulocyte # (Auto) 0.07 K/uL (0.00-0.02) Anion Gap 10.0 mmol/L (3-11) Est Creatinine Clear Calc Drug Dose 145.6 ml/min Estimated GFR () 109.6 Estimated GFR (Non- 94.6 BUN/Creatinine Ratio 12.1 (10-20) Calcium Level 9.0 mg/dl (8.5-10.1) Total Bilirubin 0.3 mg/dl (0.2-1) Direct Bilirubin < 0.1 mg/dl (0-0.2) Aspartate Amino Transf (AST/SGOT) 14 U/L (15-37) Alanine Aminotransferase (ALT/SGPT) 27 U/L (12-78) Alkaline Phosphatase 81 U/L (45-117) Troponin I < 0.015 ng/ml (0-0.045) Total Protein 7.2 gm/dl (6.4-8.2) Albumin 3.2 gm/dl (3.4-5.0) Lipase 142 U/L (73-393) Laboratory results reviewed by me Medications Administered Medications (Trade) Dose Ordered Sig/Mario Alberto Route Start Time Stop Time Status Last Admin Dose Admin Oxycodone HCl (Roxicodone Immediate Rel Tab) 5 mg NOW STAT PO 06/07/18 22:16 06/07/18 22:18 DC 06/07/18 22:23 5 MG Acetaminophen (Tylenol Tab) 1,000 mg NOW STAT PO 06/07/18 23:06 06/07/18 23:07 DC 06/07/18 23:11 1,000 MG ECG Per My Interpretation Indication: chest pain Rate (beats per minute): 116 Rhythm: sinus tachycardia Findings: PVC (occasional ), other (no ST elevation, normal intervals) Comparison ECG Date: 06/01/2018 Change: no significant change ED Course 2213: The patient was evaluated in room C9. A complete history and physical exam was performed. 2216: Ordered Oxycodone HCl 5 mg PO. 2306: Ordered Acetaminophen 1000 mg PO. 2310: I reevaluated the patient. Discussed results and discharge instructions: He verbalized understanding and agreement. The patient is ready for discharge. Medical Decision Differential diagnosis: Etiologies such as cardiac ischemia, aortic dissection, pulmonary embolism, pneumonia, pneumothorax, musculoskeletal, infections, pericarditis, myocarditis , esophageal rupture, gastrointestinal, as well as others were entertained. Slightly short of breath with predominantly left-sided chest pain in the left shoulder. Worse with movement left shoulder; no evidence hematoma or effusion. Denies trauma. Denies any abdominal pain. States a history of recurrent pain similar to this. He endorses he has had had multiple evaluations for this in the past for similar with no findings. States compliance with home Xarelto. Doubt PE. Doubt dissection. EKG without acute changes. Troponin was sent, negative. Low risk heart score. Given some oxycodone for pain control and Tylenol here. Believe this is more musculoskeletal in nature. Shoulder x-ray without acute abnormality. Has an NSAID allergy; may use Tylenol. Will not continue narcotics. Recommend continued outpatient follow-up for this with his primary doctor within the next 5 days. Discussed return criteria. Medication Reconcilliation Current Medication List: was personally reviewed by me Blood Pressure Screening Patient's blood pressure: Elevated blood pressure Blood pressure disposition: Referred to PCP Impression Primary Impression: Chest wall pain Additional Impression: Shoulder pain Scribe Attestation The scribe's documentation has been prepared under my direction and personally reviewed by me in its entirety. I confirm that the note above accurately reflects all work, treatment, procedures, and medical decision making performed by me. Departure Information Dispostion Home / Self-Care Referrals Velasquez Valencia M.D. (PCP) Forms Call Back Authorization, HOME CARE DOCUMENTATION FORM, IMPORTANT VISIT INFORMATION Patient Instructions My [facility] [employer] Additional Instructions Please continue to utilize Tylenol for pain as needed. Follow-up with your regular doctor in the next 3 days to discuss this. If you have worsening or other symptoms please return here for reevaluation. Problem Qualifiers Additional Impression: Shoulder pain Chronicity: acute Laterality: left Qualified Codes: M25.512 - Pain in left shoulder
[2018-06-07 22:28] LABS: BASO % 0.6 %; BASO ABS # 0.06 K/uL (0-0.2); EOS % 3.6 %; EOS ABS # 0.33 K/uL (0-0.5); HEMATOCRIT 40.7 % (42-52); HEMOGLOBIN 13.7 g/dL (14.0-18.0); IG# 0.07 K/uL (0.00-0.02); LYMPH % 31.1 %; LYMPH ABS # 2.88 K/uL (1.2-3.4); MEAN CELL VOLUME 85.9 fL (80-100); MEAN CORPUSCULAR HEMOGLOBIN 28.9 pg (25-34); MEAN CORPUSCULAR HGB CONC 33.7 g/dl (32-36); MONO % 7.8 %; MONO ABS # 0.72 K/uL (0.11-0.59); NEUT % 56.1 %; PLATELET COUNT 245 K/uL (130-400); RED CELL DISTRIBUTION WIDTH CV 13.1 % (11.5-14.5); RED CELL DISTRIBUTION WIDTH SD 41.3 fL (36.4-46.3); WHITE BLOOD COUNT 9.26 K/uL (4.8-10.8)
[2018-06-07] MEDS ORDERED: ARIP1TAB15 PO (22:44)
[2018-06-07] MEDS ORDERED: CYM60 PO (22:44)
[2018-06-07] MEDS ORDERED: XRL15 PO (22:44)
[2018-06-07] MEDS ORDERED: LISI-461 PO (22:44)
[2018-06-07] MEDS ORDERED: LPT/40 PO (22:44)
[2018-06-07 22:47] LABS: ALBUMIN 3.2 gm/dl (3.4-5.0); ALKALINE PHOSPHATASE 81 U/L (45-117); ALT/SGPT 27 U/L (12-78); AST/SGOT 14 U/L (15-37); BLOOD UREA NITROGEN 12 mg/dl (7-18); CARBON DIOXIDE 28 mmol/L (21-32); CREATININE 0.97 mg/dl (0.60-1.40); GLUCOSE 211 mg/dl (70-99); LIPASE 142 U/L (73-393); POTASSIUM 3.5 mmol/L (3.5-5.1); SODIUM 138 mmol/L (136-145); TOTAL PROTEIN 7.2 gm/dl (6.4-8.2)
[2018-06-07] MEDS ORDERED: HYDR50CA2 PO (22:47)
--- NOTE | 2018-06-07 22:47 | DIAGNOSTIC IMAGING REPORT ---
LEFT SHOULDER 3 VIEWS CLINICAL HISTORY: Left shoulder pain. FINDINGS: 3 views of the left shoulder are compared to study dated 08/05/2014. The skeletal structures are well mineralized. No fracture or dislocation is seen. Productive degenerative change is noted at the acromioclavicular joint. The glenohumeral articulation is preserved. The overlying soft tissues are within normal limits. The imaged left upper lobe lung parenchyma appears clear. IMPRESSION: No acute bony abnormality is identified in the left shoulder. Electronically signed by: Jaydon Wallace M.D. 06/07/2018 10:46 PM Dictated Date/Time: 06/07/2018 10:45 PM
[2018-06-07] MEDS ORDERED: NRN400 PO (22:50)
[2018-06-07] MEDS ORDERED: ULT50 PO (22:50)
--- NOTE | 2018-06-07 22:50 | DIAGNOSTIC IMAGING REPORT ---
SINGLE VIEW CHEST CLINICAL HISTORY: Atypical chest pain. FINDINGS: 2 AP, portable, upright chest radiographs are compared to study dated 06/02/2018 and correlated with chest CT dated 10/27/2017. The examination is degraded by portable technique, apical lordotic positioning, large body habitus, and patient rotation. The heart is top normal for projection. The lungs and pleural spaces are clear. No pneumothorax is seen. The bony thorax is grossly intact. IMPRESSION: No acute cardiopulmonary abnormality and no significant change from prior studies. Electronically signed by: Jaydon Wallace M.D. 06/07/2018 10:49 PM Dictated Date/Time: 06/07/2018 10:48 PM
[2018-06-07] MEDS ORDERED: ACETAMINOPHEN 500 MG TAB PO STA (23:06)
[2018-06-07 23:12] VITALS: BP 183/94; PULSE 112; O2SAT 95
[2018-06-07] MEDS ORDERED: INSU100I23 SQ (23:22)
[2018-06-07] MEDS ORDERED: INSDGIPEN SQ (23:23)
[2018-06-07] MEDS ORDERED: METO25TA4 PO (23:26)
[2018-06-07] MEDS ORDERED: PANT40TA PO (23:27)
[2018-06-07] MEDS ORDERED: LCTX PO (23:31)
[2018-06-13] MEDS ORDERED: DOXY100C76 PO (09:49)
== END 2018-06-07 23:18 | disposition home or self-care (01) ==
LOC: C.EDC 21:36 → EDBD 21:36 → C.EDC 23:18
DX: R07.89 Other chest pain (principal); M25.512 Pain in left shoulder; R00.0 Tachycardia, unspecified; R06.02 Shortness of breath; R50.9 Fever, unspecified; I10 Essential (primary) hypertension; E11.43 Type 2 diabetes mellitus with diabetic autonomic (poly)neuropathy; F17.200 Nicotine dependence, unspecified, uncomplicated; Z86.718 Personal history of other venous thrombosis and embolism; Z79.01 Long term (current) use of anticoagulants; Z79.4 Long term (current) use of insulin; Z79.899 Other long term (current) drug therapy; Z88.6 Allergy status to analgesic agent; Z88.1 Allergy status to other antibiotic agents; Z82.49 Family history of ischemic heart disease and other diseases of the circulatory system

== ENCOUNTER 2019-05-04 14:57 | Inpatient (IN) ==
[2019-05-04] MEDS ORDERED: ONDANSETRON INJ 2 MG/ML 2 ML VIAL IV STA (15:13)
[2019-05-04] MEDS ORDERED: SODIUM CHLORIDE 0.9% 1000ML 1,000 ML IV SCH (15:15)
[2019-05-04 15:43] LABS: Basophils # (auto) 0.02 K/uL (0-0.2); Basophils % (auto) 0.3 %; Eosinophils # (auto) 0.15 K/uL (0-0.5); Eosinophils % (auto) 1.9 %; Hematocrit (blood only) 42.9 % (42-52); Hemoglobin 15.2 g/dL (14.0-18.0); Immature Granulocytes # (auto) 0.07 K/uL (0.00-0.02); Immature Granulocytes % (auto) 0.9 %; Lymphocytes # (auto) 1.39 K/uL (1.2-3.4); Lymphocytes % (auto) 17.7 %; Mean Corpuscular Hgb Conc 35.4 g/dL (32-36); Mean Corpuscular Volume 84.8 fL (80-100); Mean Platelet Volume 9.3 fL (7.4-10.4); Monocytes # (auto) 0.64 K/uL (0.11-0.59); Monocytes % (auto) 8.1 %; Neutrophils # (auto) 5.59 K/uL (1.4-6.5); Neutrophils % (auto) 71.1 %; Platelet Count 207 K/uL (130-400); RDW Coefficient of Variation 12.7 % (11.5-14.5); RDW Standard Deviation 38.7 fL (36.4-46.3); Red Blood Count 5.06 M/uL (4.7-6.1); White Blood Count 7.86 K/uL (4.8-10.8)
[2019-05-04 15:50] LABS: Appearance Urine Clear (Clear); Bilirubin Urine Negative (Negative); Blood Urine Negative (Negative); Color Urine Yellow; Glucose Urine UA 3+ (Negative); Ketones Urine 1+ (Negative); Leukocyte Esterase Urine Negative (Negative); Nitrite Urine Negative (Negative); Protein Urine Negative (Negative); Urobilinogen Urine Negative (Negative)
[2019-05-04] MEDS: HYDROmorphone INJ 0.5 MG/0.5 ML SYR IV PRN ×2 (15:58→16:40)
[2019-05-04 16:06] LABS: Albumin Level 3.6 gm/dl (3.4-5.0); BUN Creatinine Ratio 12.1 (10-20); Calcium 8.9 mg/dl (8.5-10.1); Creatinine Clr Calc Pharmacy 116.6 ml/min; Est GFR (African American) 91.5; Est GFR (Non-African American) 78.9
[2019-05-04 16:07] LABS: Bilirubin,Total 0.7 mg/dl (0.2-1); Globulin 3.6 gm/dl (2.5-4.0); Total Protein 7.2 gm/dl (6.4-8.2)
[2019-05-04 16:16] LABS: Beta-Hydroxybutyrate 5.36 mg/dl (0.2-2.81)
[2019-05-04] MEDS ORDERED: NovoLIN-R INSULIN PER UNIT CHARGE IV STA (16:25)
[2019-05-04] MEDS ORDERED: LACTATED RINGER'S 1,000 ML IV SCH (16:30)
--- NOTE | 2019-05-04 16:49 | XRay Report ---
XR abdomen 2V w PA chest CLINICAL HISTORY: abd pain, vomiting COMPARISON STUDY: 05/03/2019 FINDINGS: The erect chest reveals no evidence of free air. There is no evidence of focal pulmonary co nsolidation.] Erect and supine views of the abdomen reveal no abnormally dilated loops of large or sm all bowel. There are no transition zone to indicate bowel obstruction. IMPRESSION: No evidence of bowel obstruction. No evidence of free air. Electronically signed by: Ortiz Driscoll M.D. 05/04/2019 4:48 PM
--- NOTE | 2019-05-04 17:38 | History & Physical Report ---
Date of Service May 04, 2019 Assessment & Plan (1) Pancreatitis: Pt presented with c/o N/V, abdominal pain x several days. multiple ER visits this week with negative CT ABD/PELVIS on 05/01/19 Lipase today 1557 from 1000 yesterday. Normal LFTs. ABD XRAY: no bowel obstruction noted. In ER afebrile, Initial P: 122 down to 100, BP: 156/89 down to 146/80, R: 20, 99% on RA. In ER given zofran, 1L NSS, dilaudid 0.5mg IV -Pending US gallbladder to r/o stone/cholecystitis -NPO -LR at 200ml/hr -Dilaudid prn pain -CBC, CMP, lipase in AM (2) Hyperglycemia: (3) Diabetes mellitus, type 2: A1c: 8.8 in 06/2018 Glucose 378 in ER. Was given 10 units insulin R in ER -Hold home metformin -Glycemic pharmacy to assist in glycemic management (4) HTN (hypertension): BP: 156/89 in ER down to 146/80 -Hold lisinopril for now with pancreatitis -Hydralazine prn HTN -Monitor BP (5) Tobacco use: -Denies nicotine patch -Smoking cessation encouraged (6) Depression: Not currently on medication DVT Prophylaxis -Lovenox SQ Full Code as per discussion with pt Follows with Dr Barton for routine care Pt was seen and care coordinated with Dr Rodriguez. See addendum History of Present Illness Chief Complaint: Abdominal pain Primary Care Provider: Nicko Barton MD Pt is 43 y/o M with PMH DM II, depression, HTN, gastroparesis, tobacco use, h/o DVT and others below presented to ER with c/o abdominal pain. This is 3rd ER visit for abdominal pain this week. Reports mid abdominal pain with radiation to her back with associated nausea and vomiting. Patient reports 7 episodes of vo miting daily over the past several days. In ER on 05/01/[address] abdomen pelvis and normal lipase. Seen in ER on 05/03/2019 abdominal x-ray without signs of bowel obstruction, had lipase of 1000. Reported patient felt better after some fluids and antinausea medicine. Patient returns today with continued nausea, vomiting and abdominal pain. Patient states his been unable to eat today secondary to symptoms. Pt states restarted metformin a couple of weeks ago and since his been having loose stools. Pt reports did not want to start insulin. Pt was also restarted on lisinopril. Denies loose stool today. Denies known fever or chills. Reports alcohol use approximately twice a year and denies any in the last couple of months. Denies diaphoresis, MCCARTY, dizziness, syncope, vision changes, neck pain, CP, SOB, orthopnea, palpitations, cough, sore throat, choking, otalgia, rhinorrhea, hematemesis, melena, hematochezia, paresthesias, weakness, extremity weakness, extremity edema, rashes, urinary symptoms. Allergies Allergy/AdvReac Type Severity Reaction Status Date / Time Cephalosporins Allergy Unknown Unknown Verified 05/04/19 15:48 NSAIDS (Non-Steroidal AdvReac Unknown gastroparesis, Verified 05/04/19 15:48 Anti-Inflamma kidney problems Home Medications Home Medications Medication Instructions Recorded Confirmed Type lisinopril 10 mg PO DAILY 05/01/19 05/04/19 History metformin 1,000 mg PO BID 05/01/19 05/04/19 History sildenafil (antihypertensive) 20 mg PO DIRECTED PRN 05/01/19 05/04/19 History metoclopramide HCl [Reglan] 10 mg PO Q6H PRN 05/04/19 05/04/19 History Past Med/Surg History Medical History Tobacco use (Chronic) MRSA (methicillin resistant Staphylococcus aureus) carrier Gastroparesis (Acute) HTN (hypertension) (Chronic) Diabetes mellitus, type 2 (Chronic) History of ventricular tachycardia (Chronic) "nonsustained" History of DVT (deep vein thrombosis) (Chronic) IBS (irritable bowel syndrome) (Chronic) Gastroparesis (Chronic) Nicotine dependence (Chronic) Obesity (Chronic) Obstructive sleep apnea (Chronic) Depression (Chronic) Diabetes mellitus with neurological manifestation (Chronic) "Diabetic neuropathy reported in hands and feet" Intellectual disability (Chronic) Diabetes (Chronic) Hyperlipidemia (Chronic) Hypertension (Chronic) Tobacco use (Chronic) Chest pain (Inactive) Surgical History S/P left knee arthroscopy (Chronic) S/P tonsillectomy (Chronic) Status post incision and drainage (Chronic) S/P tonsillectomy (Chronic) Family History Other Family history non-contributory Social History Preferred Language: [place] Communication Ability: impediment Beliefs That Will Affect Care: None Current Living Situation: Parent and Family Feels Safe at Home: Yes Smoking Status: Current every day smoker Tobacco Type: cigarettes Cigarettes Per Day: 15 Hx Alcohol Use: Yes Alcohol type: beer Hx Substance Use: No Review of Systems Review of Systems: All systems reviewed & are unremarkable except as noted in HPI & below Physical Exam Physical Exam: General: no distress, obese Head: normocephalic, atraumatic Eyes: PERRL, EOM's intact, conjunctiva non-injected, anicteric ENT: normal inspection external ears, nose, mucous membranes moist Neck: supple, trachea midline, non-tender Lungs: clear, no respiratory distress, no wheezing/rhonchi/rales CV: RRR, no murmur, no JVD, no pretibial edema Abd: normal BS, protuberant, soft, +tenderness to entire abdomen, increased to epigastric region, no guarding or rebound Ext: no cyanosis, no calf tenderness Neuro: A&O x 3, no focal deficits noted, normal affect Skin: warm, dry Results & Data Vital Signs (Past 12 Hours) Vital Signs Temp Pulse Pulse Resp BP BP Pulse Ox 05/04/19 16:45 37.0 C 100 H 20 146/80 H 98 05/04/19 15:02 36.6 C 118 H 20 160/81 H 99 Laboratory Results Short CBC 05/04/19 Range/Units 15:35 WBC 7.86 (4.8-10.8) K/uL Hgb 15.2 (14.0-18.0) g/dL Hct 42.9 (42-52) % Plt Count 207 (130-400) K/uL BMP 05/04/19 15:35 Sodium 136 Potassium 4.0 Chloride 102 Carbon Dioxide 25 BUN 14 Creatinine 1.12 Glucose 378 H* Calcium 8.9 Liver Function 05/04/19 Range/Units 15:35 Total Bilirubin 0.7 (0.2-1) mg/dl AST 19 (15-37) U/L ALT 55 (12-78) U/L Alkaline Phosphatase 74 (45-117) U/L Albumin 3.6 (3.4-5.0) gm/dl Urine 05/04/19 Range/Units 15:35 Urine Color Yellow Urine Appearance Clear (Clear) Urine pH 6.0 (4.5-7.5) Ur Specific [place] 1.040 H (1.000-1.030) Urine Protein Negative (Negative) Urine Glucose (UA) 3+ H (Negative) Diagnostic Findings CXR/ABD XRAY: IMPRESSION: No evidence of bowel obstruction. No evidence of free air. Supervising Physician Co-Signing Physician Notes Attending addendum: The patient was seen and examined in emergency room. Pt is 43 y/o M with PMH DM II, depression, HTN, gastroparesis, tobacco use, h/o DVT and others below presented to ER with c/o abdominal pain. This is 3rd ER visit for abdominal pain this week. Reports mid abdominal pain with radiation to her back with associated nausea and vomiting. Patient reports 7 episodes of vomiting daily over the past several days. Still complains to have abdominal pain typical of pancreatitis Denies any more nausea or vomiting during examination On examination Minimal distress at rest due to abdominal pain Has tachycardia more than 100 and high blood pressure of 146/80, no fever Chest-clear to auscultate bilaterally Heart-S1-S2 regular Abdomen-soft, mildly tender all over, no guarding and/or rigidity, renal angles when not tender Extremities-negative for any edema Admission labs and imaging studies noted Has elevated lipase of 1557 without increase in white count and without any CT evidence of acute pancreatitis Has acute pancreatitis Agree with assessment and plan as outlined above by JAMIE Cool Dr (1) Pancreatitis Acute pancreatitis complication: unspecified Chronicity: acute Pancreatitis type: unspecified pancreatitis type Qualified Code(s): K85.90 - Acute pancreatitis without necrosis or infection, unspecified
--- NOTE | 2019-05-04 18:07 | Emergency Department Note ---
Entered by Vanita Erickson acting as a scribe for Glenn Rocha MD ED Provider Note CHIEF COMPLAINT: Abdominal pain. HISTORY OF PRESENT ILLNESS: The patient is a 43 year old male who presents to the Emergency Room with complaints of worsening lower abdominal pain. The patient states that he was here yesterday for lower abdominal pain and lower back pain. The patient states that he went home with nausea medication and was feeling better. He reports that this morning the same symptoms returned. The patient reports that his pain is a 9/10. He states that he is experiencing nausea, vomiting, and mild diarrhea. The patient denies any alcohol use in the past several days.Pt denies LOC, headache, fevers, chills, diaphoresis, visual changes, neck pain, chest pain, breathing difficulties, melena, hematochezia, urinary symptoms, numbness, weakness, lymphadenopathy, rash, or other complaints. Per the ED note, the patient's blood work was normal with the exception of elevated lipase measurements. REVIEW OF SYSTEMS: See HPI for pertinent positives and negatives. A total of ten systems were reviewed and were otherwise negative. PMHx/PSHx: No significant past medical history. SOCIAL HISTORY: Patient lives at home. PHYSICAL EXAM: GENERAL: Awake, alert, uncomfortable-appearing, in no distress HENT: Normocephalic, atraumatic. Oropharynx unremarkable. EYES: PERRL. Normal conjunctiva. Sclera non-icteric. NECK: Inspection normal. Non-tender. Supple. No nuchal rigidity. FROM. No mass es. RESPIRATORY: Clear to auscultation. No wheezes. No rales. Normal respiratory effort. CARDIAC: Normal rate. Normal rhythm. No murmurs. No rubs. Extremities warm and well perfused. Pulses equal. No JVD. GI: Soft, non-distended. Upper abdominal tenderness to palpation. No rebound or guarding. No masses. RECTAL: Deferred. MUSCULOSKELETAL: Atraumatic. Chest examination reveals no tenderness. The back is symmetrical on inspection without obvious abnormality. There is no CVA tenderness to palpation. No joint edema. LOWER EXTREMITIES: Calves are equal size bilaterally and non-tender. No edema. No discoloration. NEURO: Normal sensorium. No sensory or motor deficits noted. SKIN: No rash or jaundice noted. EMERGENCY DEPARTMENT COURSE: 1505: Past medical records reviewed. The patient was evaluated in room A2, and a complete history and physical examination were performed. 1619: Patient reassessed and feeling better. I reviewed the patient's case with Hua Saleh PA-C [facility]. Dr. Rodriguez- [facility] Hospitalist will evaluate the patient for further management. MEDICAL DECISION MAKING: Prior records/ancillary studies reviewed. Patient was here yesterday and had a mild elevation of his lipase 1000. Triage Nursing notes reviewed and agree them. The patient's history was concerning for abdominal pain. Differential diagnosis: Etiologies such as appendicitis, diverticulitis, PUD, biliary pathology, UTI, pancreatitis, obstruction, mesenteric ischemia, aortic pathology, infections, inflammatory bowel disease, renal colic, as well as others were entertained. Physical examination findings: As above. ER treatment provided: IV Zofran IV Dilaudid saline hydration IV lactated Ringer's IV insulin On reassessment the patient felt better. Diagnostics interpreted by me: The labs revealed an unremarkable CBC and chemistry panel. The patient's blood glucose measurement is significant elevated at 378. The patient has an elevation of his lipase at 1500 concerning for pancreatitis. Imaging studies: X-ray imaging is unremarkable. Consultation: A consultation was placed with the [facility] hospitalist. The case was discussed and diagnostics were reviewed. The patient was evaluated in the ER for further treatment. IMPRESSION: Pancreatitis, Nausea and vomiting, hyperglycemia, generalized abdominal pain PLAN: Admitted. The scribe's documentation has been prepared under my direction and personally reviewed by me in its entirety. I confirm that the note above accurately refle cts all work, treatment, procedures, and medical decision making performed by me. Impression & Plan Pancreatitis, Abdominal pain, generalized, Nausea & vomiting, Hyperglycemia Past Med/Surg History Medical History MRSA (methicillin resistant Staphylococcus aureus) carrier Gastroparesis (Acute) HTN (hypertension) (Chronic) Diabetes mellitus, type 2 (Chronic) History of ventricular tachycardia (Chronic) "nonsustained" History of DVT (deep vein thrombosis) (Chronic) IBS (irritable bowel syndrome) (Chronic) Gastroparesis (Chronic) Nicotine dependence (Chronic) Obesity (Chronic) Obstructive sleep apnea (Chronic) Depression (Chronic) Diabetes mellitus with neurological manifestation (Chronic) "Diabetic neuropathy reported in hands and feet" Intellectual disability (Chronic) Diabetes (Chronic) Hyperlipidemia (Chronic) Hypertension (Chronic) Tobacco use (Chronic) Chest pain (Inactive) Surgical History S/P left knee arthroscopy (Chronic) S/P tonsillectomy (Chronic) Status post incision and drainage (Chronic) S/P tonsillectomy (Chronic) Family History Other Family history non-contributory Social History Preferred Language: Japanese Communication Ability: impediment Beliefs That Will Affect Care: None Current Living Situation: Parent and Family Feels Safe at Home: Yes Smoking Status: Current every day smoker Tobacco Type: cigarettes Cigarettes Per Day: 15 Hx Alcohol Use: Yes Alcohol type: beer Hx Substance Use: No Results & Data Vital Signs Vital Signs - 24 hr 05/04/19 15:02 05/04/19 16:45 Temperature 36.6 C 37.0 C Temperature Source Oral Oral Sepsis Recent Fever Within 48 Hours No Sepsis Action Taken by Nursing No Action Required Pulse Rate 118 H Pulse Rate [Apical] 100 H Respiratory Rate 20 20 Respiratory Effort / Characteristics Non-Labored Respiratory Depth Normal Blood Pressure 160/81 H Blood Pressure [Left Arm] 146/80 H Blood Pressure Mean 107 Blood Pressure Mean [Left Arm] 102 Pulse Oximetry 99 98 Oxygen Delivery Method Room Air Room Air Home Medications Current Medication List: was personally reviewed by me Laboratory Data Attestation: I reviewed the patient's lab results. Result diagrams: 05/04/19 15:35 05/04/19 15:35 Lab Results 05/04/19 05/04/19 05/04/19 Range/Units 15:35 15:35 15:35 WBC 7.86 (4.8-10.8) K/uL RBC 5.06 (4.7-6.1) M/uL Hgb 15.2 (14.0-18.0) g/dL Hct 42.9 (42-52) % MCV 84.8 (80-100) fL MCH 30.0 (25-34) pg MCHC 35.4 (32-36) g/dL RDW Std Deviation 38.7 (36.4-46.3) fL RDW Coeff of Abiodun 12.7 (11.5-14.5) % Plt Count 207 (130-400) K/uL MPV 9.3 (7.4-10.4) fL Immature Gran % (Auto) 0.9 % Neut % (Auto) 71.1 % Lymph % (Auto) 17.7 % Darke % (Auto) 8.1 % Eos % (Auto) 1.9 % Baso % (Auto) 0.3 % Immature Gran # (Auto) 0.07 H (0.00-0.02) K/uL Neut # (Auto) 5.59 (1.4-6.5) K/uL Lymph # (Auto) 1.39 (1.2-3.4) K/uL Darke # (Auto) 0.64 H (0.11-0.59) K/uL Eos # (Auto) 0.15 (0-0.5) K/uL Baso # (Auto) 0.02 (0-0.2) K/uL Sodium 136 (136-145) mmol/L Potassium 4.0 (3.5-5.1) mmol/L Chloride 102 (98-107) mmol/L Carbon Dioxide 25 (21-32) mmol/L Anion Gap 9.0 (3-11) BUN 14 (7-18) mg/dl Creatinine 1.12 (0.6-1.4) mg/dl Est Cr Clr Drug Dosing 116.6 ml/min Est GFR ( Amer) 91.5 Est GFR (Non-Af Amer) 78.9 BUN/Creatinine Ratio 12.1 (10-20) Glucose 378 H* (70-99) mg/dl Calcium 8.9 (8.5-10.1) mg/dl Total Bilirubin 0.7 (0.2-1) mg/dl AST 19 (15-37) U/L ALT 55 (12-78) U/L Alkaline Phosphatase 74 (45-117) U/L Total Protein 7.2 (6.4-8.2) gm/dl Albumin 3.6 (3.4-5.0) gm/dl Globulin 3.6 (2.5-4.0) gm/dl Albumin/Globulin Ratio 1.0 (0.9-2) Lipase 1557 H (73-393) U/L Beta-Hydroxybutyric Acd 5.36 H (0.2-2.81) mg/dl Urine Color Yellow Urine Appearance Clear (Clear) Urine pH 6.0 (4.5-7.5) Ur Specific [place] 1.040 H (1.000-1.030) Urine Protein Negative (Negative) Urine Glucose (UA) 3+ H (Negative) Urine Ketones 1+ H (Negative) Urine Blood Negative (Negative) Urine Nitrite Negative (Negative) Urine Bilirubin Negative (Negative) Urine Urobilinogen Negative (Negative) Ur Leukocyte Esterase Negative (Negative) Administered Medications Hydromorphone HCl (Dilaudid) 0.5 mg IV Q15M PRN PRN Reason: Pain Stop: 05/18/19 15:12 Last Admin: 05/04/19 16:40 Dose: 0.5 mg Documented by: [id number] Admin: 05/04/19 15:58 Dose: 0.5 mg Documented by: [id number] Lactated Ringer's (Lr) 1,000 mls @ 200 mls/hr IV .Q5H SOPHIA Stop: 06/03/19 16:29 Last Admin: 05/04/19 16:40 Dose: 200 mls/hr Documented by: [id number] Discontinued Medications Sodium Chloride (Nss 1000ml) 1,000 mls @ 999 mls/hr IV .Q1H1M SOPHIA Stop: 05/04/19 16:15 Last Infusion: 05/04/19 16:47 Dose: 0 mls/hr Documented by: [id number] Admin: 05/04/19 15:59 Dose: 999 mls/hr Documented by: [id number] Insulin Human Regular (Novolin R U-100 Per Unit) 10 units IV NOW STA Stop: 05/04/19 16:26 Last Admin: 05/04/19 16:40 Dose: 10 units Documented by: [id number] Cosigned by: [id number] Ondansetron HCl (Zofran) 4 mg IV NOW STA Stop: 05/04/19 15:14 Last Admin: 05/04/19 15:58 Dose: 4 mg Documented by: [id number] Imaging Data Radiologist's Impression: Radiology results as stated below per my review and the radiologist's interpretation: XR abdomen 2V w PA chest CLINICAL HISTORY: abd pain, vomiting COMPARISON STUDY: 05/03/2019 FINDINGS: The erect chest reveals no evidence of free air. There is no evidence of focal pulmonary consolidation.] Erect and supine views of the abdomen reveal no abnormally dilated loops of large or small bowel. There are no transition zone to indicate bowel obstruction. IMPRESSION: No evidence of bowel obstruction. No evidence of free air. Electronically signed by: Ortiz Driscoll M.D. 05/04/2019 4:48 PM Blood Pressure Blood Pressure Findings: Elevated blood pressure Blood Pressure Disposition: Referred to patients primary care provider Discharge Plan Visit Data Chief Complaint: Vomiting Stated Complaint: vomiting pain ED Provider: Glenn Rocha Discharge Problem: Pancreatitis, Abdominal pain, generalized, Nausea & vomiting, Hyperglycemia Patient Disposition: Being Evaluated by Hospitalist Forms Stand Alone Forms: My [facility] [employer] Prescriptions Prescriptions: No Action metformin 1,000 mg Tablet 1,000 mg PO BID RF: 0 lisinopril 10 mg Tablet 10 mg PO DAILY RF: 0 sildenafil (antihypertensive) 20 mg Tablet 20 mg PO DIRECTED PRN (Reason: Erectile Dysfunction) RF: 0 metoclopramide HCl [Reglan] 10 mg tablet 10 mg PO Q6H PRN (Reason: Nausea And Vomiting) RF: 0 Referrals Referrals: Nicko Barton MD [Primary Care Provider] - Discharge Problem: Pancreatitis Qualifiers: Chronicity: acute Pancreatitis type: unspecified pancreatitis type Acute pancreatitis complication: unspecified Qualified Code(s): K85.90 - Acute pancreatitis without necrosis or infection, unspecified Nausea & vomiting Qualifiers: Vomiting type: unspecified Vomiting Intractability: unspecified Qualified Code(s): R11.2 - Nausea with vomiting, unspecified The scribe's documentation has been prepared under my direction and personally reviewed by me in its entirety. I confirm that the note above accurately reflects all work, treatment, procedures, and medical decision making performed by me.
[2019-05-04] MEDS ORDERED: GLUCAGON FOR INJ 1 MG VIAL SQ PRN (20:46)
[2019-05-04] MEDS ORDERED: CARBOHYDRATES FOR HYPOGLYCEMIA PO PRN (20:46)
[2019-05-04] MEDS ORDERED: DEXTROSE 50% 50 ML SYRINGE IV PRN (20:46)
[2019-05-04] MEDS ORDERED: GLUCOSE 10 TABS/TUBE PO PRN (20:46)
[2019-05-04] MEDS ORDERED: GLUCOSE 40% GEL 15 GM TUBE PO PRN (20:46)
[2019-05-04] MEDS ORDERED: PHARMACY GLYCEMIC MGMT CONSULT PRN (20:58)
--- NOTE | 2019-05-04 22:10 | Ultrasound Report ---
BILIARY ULTRASOUND CLINICAL HISTORY: abd pain, pancreatitis COMPARISON STUDY: CT scan dated 05/01/2019 FINDINGS: The pancreas was not visualized, due to overlying bowel gas.. The liver was of increased ec hogenicity finding most likely secondary to hepatic steatosis. No focal masses were visualized. There is suspected focal fatty sparing adjacent to gallbladder fossa. No gallstones are visualized. There is no gallbladder wall thickening. There is no ductal dilatation. The common bile duct measured 4 mm. There is no right-sided hydronephrosis. IMPRESSION: 1. Ultrasonographically normal gallbladder. No evidence of ductal dilatation 2. Hepatic steatosis with suspected focal fatty sparing adjacent to the gallbladder. 3. Nonvisualization of the pancreas. Electronically signed by: Ortiz Driscoll M.D. 05/04/2019 10:09 PM
[2019-05-04] MEDS: LACTATED RINGER'S 1,000 ML IV SCH (22:32)
[2019-05-04] MEDS: INSULIN GLARGINE SOLOSTAR 100 UNITS/ML 3 ML PEN SC SCH (22:32)
[2019-05-04] MEDS: INSULIN ASPART 100 UNITS/ML 3 ML PEN SC SCH (22:33)
[2019-05-04] MEDS: ENOXAPARIN INJ 40 MG/0.4 ML SYR SQ SCH (22:34)
[2019-05-05] MEDS: HYDROmorphone INJ 0.5 MG/0.5 ML SYR IV PRN ×5 (00:41→23:57)
[2019-05-05] MEDS ORDERED: INSULIN ASPART 100 UNITS/ML 3 ML PEN SC SCH (02:00)
[2019-05-05] MEDS: LACTATED RINGER'S 1,000 ML IV SCH ×5 (03:38→23:58)
[2019-05-05 07:51] LABS: Hemoglobin 14.3 g/dL (14.0-18.0); Mean Corpuscular Hgb Conc 34.9 g/dL (32-36); Mean Corpuscular Volume 86.1 fL (80-100); Mean Platelet Volume 9.2 fL (7.4-10.4); Platelet Count 194 K/uL (130-400); RDW Coefficient of Variation 12.7 % (11.5-14.5); RDW Standard Deviation 40.5 fL (36.4-46.3); Red Blood Count 4.76 M/uL (4.7-6.1); White Blood Count 6.64 K/uL (4.8-10.8)
[2019-05-05 08:16] LABS: Estimated Average Glucose 338 mg/dl; Hemoglobin A1C 13.4 % (4.5-5.6)
[2019-05-05 08:23] LABS: Albumin Level 3.2 gm/dl (3.4-5.0); BUN Creatinine Ratio 15.3 (10-20); Bilirubin,Total 0.8 mg/dl (0.2-1); Calcium 8.3 mg/dl (8.5-10.1); Creatinine Clr Calc Pharmacy 172.4 ml/min; Est GFR (African American) 127.7; Est GFR (Non-African American) 110.2; Globulin 3.2 gm/dl (2.5-4.0); Potassium 3.7 mmol/L (3.5-5.1); Total Protein 6.4 gm/dl (6.4-8.2)
[2019-05-05] MEDS: INSULIN GLARGINE SOLOSTAR 100 UNITS/ML 3 ML PEN SC SCH ×2 (09:37→20:13)
[2019-05-05] MEDS: INSULIN ASPART 100 UNITS/ML 3 ML PEN SC SCH ×3 (09:39→17:14)
--- NOTE | 2019-05-05 10:36 | Gastrointestinal Consultation ---
Date of Consultation May 05, 2019 Assessment & Plan (1) Pancreatitis: 43 year old male admitted through the ED after three visits w/ upper abdominal pain nausea/vomiting concerning for pancreatitis w/ elevated lipase but normal LFTs. He also caries a history of gastroparesis - MRCP to rule out biliary source - NPO - IV LR 200 mL - IV anti-emetics - IV analgesia - ETOH cessation was recommended - Pt is vague with his past but notes a few beers a few weeks ago but drinks heavily from time to time Thank you for allowing us to participate in the care of this patient. Please call with any acute changes, questions or concerns. Please see addendum below with additional recommendation from my supervising physician. Present on Admission?: Yes Supervising Physician Co-Signing Physician Notes I have personally seen and examined the patient with SHY Pedroza. Her note reflects my exam and findings. I agree with her impression and plan. Feeling better. Will await MRI looking for biliary source. Janak Aldrich M.D. History of Present Illness Reason for Consultation: pancreatitis Requesting Physician: Faiza Attending Physician: Chacorta Kendall MD History of Present Illness 43 year old male with history of T2DM, depression, HTN, gastroparesis, DVT and others below who was admitted through the ED after three visits for upper abdominal pain, nausea/vomiting since Wednesday w/ acute pancreatitis - GI was asked to evaluate. Pt was seen and evaluated, chart reviewed. Notes that he had abrupt onset of upper abdominal "bandlike pain" that started on Wednesday. Pain was intermittent. Severe once present. Associated with nausea/vomiting. ED visits were reviewed w/ negative CT imaging and mildly elevated lipase but symp toms improved. Now back w/ similar symptoms. Notes diarrhea since starting new OP metformin. No fever, chills, CP, SOB. ETOH: two beers, two weeks ago New meds: metformin, reglan, lisinopril, sildenafil PRN ABD US: Ultrasonographically normal gallbladder. No evidence of ductal dilatationHepatic steatosis with suspected focal fatty sparing adjacent to the gallbladder.Nonvisualization of the pancreas. CT: There are no acute infectious or inflammatory findings in the abdomen or pelvis.Hepatomegaly and hepatic steatosis. Allergies Allergy/AdvReac Type Severity Reaction Status Date / Time Cephalosporins Allergy Unknown Unknown Verified 05/04/19 15:48 NSAIDS (Non-Steroidal AdvReac Unknown gastroparesis, Verified 05/04/19 15:48 Anti-Inflamma kidney problems Home Medications Home Medications Medication Instructions Recorded Confirmed Type lisinopril 10 mg PO DAILY 05/01/19 05/04/19 History metformin 1,000 mg PO BID 05/01/19 05/04/19 History sildenafil (antihypertensive) 20 mg PO DIRECTED PRN 05/01/19 05/04/19 History metoclopramide HCl [Reglan] 10 mg PO Q6H PRN 05/04/19 05/04/19 History Patient History Medical History Tobacco use (Chronic) MRSA (methicillin resistant Staphylococcus aureus) carrier Gastroparesis (Acute) HTN (hypertension) (Chronic) Diabetes mellitus, type 2 (Chronic) History of ventricular tachycardia (Chronic) "nonsustained" History of DVT (deep vein thrombosis) (Chronic) IBS (irritable bowel syndrome) (Chronic) Gastroparesis (Chronic) Nicotine dependence (Chronic) Obesity (Chronic) Obstructive sleep apnea (Chronic) Depression (Chronic) Diabetes mellitus with neurological manifestation (Chronic) "Diabetic neuropathy reported in hands and feet" Intellectual disability (Chronic) Diabetes (Chronic) Hyperlipidemia (Chronic) Hypertension (Chronic) Tobacco use (Chronic) Chest pain (Inactive) Surgical History S/P left knee arthroscopy (Chronic) S/P tonsillectomy (Chronic) Status post incision and drainage (Chronic) S/P tonsillectomy (Chronic) Family History Other Family history non-contributory Social History Preferred Language: Algerian Communication Ability: impediment 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 Beliefs That Will Affect Care: None Current Living Situation: Parent and Family Other Information That Helps Us Care for You: No Feels Safe at Home: Yes Safety Concerns: Feels Safe At This Time Smoking Status: Current every day smoker Tobacco Type: cigarettes Cigarettes Per Day: 30-40 Do You Dip or Chew Tobacco: No Hx Alcohol Use: Yes Alcohol type: beer and hard liquor Hx Substance Use: No Review of Systems Constitutional: no fever, no chills and no fatigue Respiratory: no cough, no dyspnea and no wheezing Cardiovascular: no chest pain, no radiating jaw, neck or arm pain and no dyspnea on exertion Gastrointestinal: + abdominal pain, + nausea, + cramping, + change in stools and + diarrhea/loose stools; no belching, no heartburn, no vomiting, no coffee ground emesis, no hematemesis, no blood in stools and no melena Physical Exam Constitutional: WD/WN, vitals as above no acute distress Neck: trachea midline Respiratory: normal respiratory effort, lungs clear to auscultation Cardiovascular: RRR, no murmur, no edema Gastrointestinal (Abdomen): Percussion/Palpation: + abdomen tender (upper abdominal pain) and abdomen soft; no guarding, abdomen not rigid, no abdominal mass and no ascites Skin: no rashes, warm and dry Results & Data Vital Signs (Past 12 Hours) Vital Signs Temp Pulse Pulse Resp BP Pulse Ox 05/05/19 08:18 36.5 C 91 H 18 147/76 H 96 05/05/19 07:20 84 05/05/19 04:05 36.5 C 85 18 115/64 93 05/04/19 23:00 36.5 C 87 18 111/74 95 05/04/19 22:49 36.5 C 16 102/95 95 05/04/19 22:45 93 H (1) Pancreatitis Acute pancreatitis complication: unspecified Chronicity: acute Pancreatitis type: unspecified pancreatitis type Qualified Code(s): K85.90 - Acute pancreatitis without necrosis or infection, unspecified
[2019-05-05] MEDS ORDERED: INSULIN GLARGINE SOLOSTAR 100 UNITS/ML 3 ML PEN SC ONE (12:30)
--- NOTE | 2019-05-05 14:32 | Pharmacy Report ---
Glycemic Control Consultation - Date of Service May 05, 2019 - Scope Scope: Glycemic Pharmacist consulted by BELTRAN Weaver on 05/04 for glycemic control and to write orders per [facility] inpatient glycemic control protocol - Objective Weight: 124.9 kg Accuchecks BSG (last 24hrs): 05/04/19 05/04/19 05/05/19 15:35 21:01 02:04 Glucose 378 H* POC Glucose 177 H 171 H 05/05/19 05/05/19 05/05/19 07:29 07:42 11:47 Glucose 183 H POC Glucose 163 H 214 H Laboratory Data (last 24hrs): 05/04/19 05/05/19 15:35 07:29 Potassium 4.0 3.7 Carbon Dioxide 25 26 Anion Gap 9.0 7.0 Creatinine 1.12 0.76 D Est Cr Clr Drug Dosing 116.6 172.4 Beta-Hydroxybutyric Acd 5.36 H HbA1c: Hemoglobin A1c 13.4 % (4.5-5.6) H 05/05/19 07:29 - Recent Pertinent Medications Outpatient Anti-diabetic Regimen: * Metformin 1 gm BID * A1c = 13.4 % 05/05/19 The patient is currently receiving: * Basal insulin: Lantus 10 units every 12 hours * Correctional Insulin: Novolog Correction per scale ACHS Goal Range: Low 120 mg/dL - High 160 mg/dL Correction Factor: 20 mg/dL/unit * Prandial insulin: Per carb ratio of 1 unit per 6 grams CHO consumed * Oral Agents: None at this time Risk Factors for Insulin Resistance/Sensitivity * Diet: NPO * Acute pancreatitis * Baseline uncontrolled diabetes - Assessment & Plan Assessment & Plan: ASSESSMENT: * 43 y/o male admitted 05/04 for acute pancreatitis * Pt is maintained on oral antidiabetic agents as an outpatient * Oral agents are not recommended for inpatient use d/t drug interactions, changing PO intake, and difficulty titrating for acute hyper/hypoglycemia. ADA recommends re-initiating outpatient oral agents 1-2 days prior to discharge if/when appropriate if they were held on admission. * Will hold oral agents for admission and utilize SQ basal bolus insulin regimen which is the recommended regimen for inpatient glycemic control. * Will initiate weight based insulin dosing for insulin vicente patient and titrate based on BSG trends. * BSGs significantly elevated on admission but have improved after initiation of basal/bolus insulin + IV bolus x 1. Will increase the basal dose since BSG increased further at 1200 today. Patient remains NPO. Of note, A1c is significantly elevated so insulin needs may be higher initially until BSGs more controlled. PLAN FOR INPATIENT GLYCEMIC CONTROL: * Holding outpatient oral diabetes medications * Basal insulin - increase * Lantus additional 10 units x 1 now * Lantus BID per the following scale: * 0 units for BSG < 110 * 10 units for BSG 110-140 * 20 units for BSG > 140 * Bolus insulin * NovoLog per scale ACHS or Q6hrs while NPO * Goal Range: Low 110 mg/dL - High 140 mg/dL * Correction Factor: 20 mg/dL/unit * Nutritional / Prandial insulin per carb ratio of 1 unit per 6 grams CHO consumed * Please note that the plan above was derived based on current level of insulin resistance and hospital stress. These recommendations are appropriate for inpatient admission only. Plan of care upon discharge will need to be reassessed to avoid potential outpatient hypo/hyperglycemia. Thank you.
--- NOTE | 2019-05-05 16:48 | Magnetic Resonance Report ---
MR MRCP CLINICAL HISTORY: pancreatitis abdominal pain. Nausea. Vomiting. COMPARISON STUDY: CT scan dated 05/01/2019, gallbladder ultrasound dated 05/04/2019 FINDINGS: Imaging was performed in the axial and coronal plane. MIP imaging was performed. No gallstones are visualized. There is no evidence for intra or extrahepatic biliary ductal dilatation. There is no evidence for pancreatic ductal dilatation. The common bile duct measures 1.5 mm. There are no peripancreatic fluid collections. The pancreatic parenchyma appears normal on this nonco ntrast study. There is no evidence for abdominal aortic aneurysm. IMPRESSION: Normal study Electronically signed by: Ortiz Driscoll M.D. 05/05/2019 4:47 PM
--- NOTE | 2019-05-05 17:15 | Hospitalist Progress Note ---
Date of Service May 05, 2019 Assessment & Plan (1) Pancreatitis: Pt presented with c/o N/V, abdominal pain x several days. multiple ER visits this week with negative CT ABD/PELVIS on 05/01/19 Lipase today 1557 from 1000 yesterday. Normal LFTs. ABD XRAY: no bowel obstruction noted. In ER afebrile, Initial P: 122 down to 100, BP: 156/89 down to 146/80, R: 20, 99% on RA. In ER given zofran, 1L NSS, dilaudid 0.5mg IV Unclear etiology at this point, rule out choledocholithiasis Gallbladder ultrasound: No sludge or lithiasis GI consulted, MRCP ordered For now continue n.p.o. status, vigorous IV fluids Patient reports drinking alcohol very rarely, last drink 2 to 3 weeks ago (2) Chest pain: Informed by RN in the afternoon as patient was having left-sided chest pain Rule out ACS by serial troponins, EKG Rule out PE by starting with d-dimer check Could ultimately be secondary to muscular skeletal pain secondary to multiple emesis We will monitor closely (3) Hyperglycemia: (4) Diabetes mellitus, type 2: A1c: 8.8 in 06/2018 Glucose 378 in ER. Was given 10 units insulin R in ER -Hold home metformin A1c 13 Pharmacy glycemic control consulted On Lantus and insulin sliding scale We will need to coordinate with case management regarding affordable insulin regimen for patient upon discharge (5) HTN (hypertension): BP: 156/89 in ER down to 146/80 -Hold lisinopril for now with pancreatitis -Hydralazine prn HTN Pressure systolic 140s 150s, likely secondary to underlying pain Continue to monitor We will consider changing lisinopril to amlodipine for blood pressure control (6) Tobacco use: -Denies nicotine patch -Smoking cessation encouraged (7) Depression: Not currently on medication DVT Prophylaxis -Lovenox SQ Full Code as per discussion with pt Follows with Dr Barton for routine care Subjective Follow-up for acute pancreatitis Seen resting in bed, not in distress Reports intermittent generalized abdominal pain, pressure, radiating to the back Associated with nausea No fever or chills Denies active chest pain, shortness of breath, dizziness, palpitations, changes with urinary or bowel movements No other symptoms Review of Systems Review of Systems: All systems reviewed & are unremarkable except as noted in HPI & below Physical Exam Physical Exam: General- oriented x 3, not in distress, speaks in sentences with no effort or accessory muscle use Head- atraumatic Eyes- PERRL, EOMI, anicteric ENT- oropharynx clear Neck- supple, no JVD, no adenopathy, no thyromegaly; carotids +2/2, no bruits appreciated Lungs- clear to auscultation bilaterally, no rales/wheezes Heart- normal rate, regular rhythm; no murmur, no gallop, no rub appreciated Abdomen- normal bowel sounds, nondistended, soft, positive mild tenderness on all quadrants, no masses or hepatosplenomegaly Extremities- no pretibial edema, no calf tenderness; peripheral pulses intact Neuro- alert, oriented x 3; CN 2-12 grossly intact; motor 5/5 bilaterally;sensation 100% on all extremities; no other gross focal neurologic deficits Skin- warm & dry Results & Data Vital Signs (Past 12 Hours) Vital Signs Temp Pulse Pulse Resp BP Pulse Ox 05/05/19 16:57 95 H 05/05/19 15:04 36.7 C 89 18 142/83 H 95 05/05/19 12:19 36.6 C 94 H 20 154/90 H 94 05/05/19 08:18 36.5 C 91 H 18 147/76 H 96 05/05/19 07:20 84 Laboratory Results Laboratory Results - last 24 hr 05/04/19 05/05/19 05/05/19 21:01 02:04 07:29 WBC 6.64 RBC 4.76 Hgb 14.3 Hct 41.0 L MCV 86.1 MCH 30.0 MCHC 34.9 RDW Std Deviation 40.5 RDW Coeff of Abiodun 12.7 Plt Count 194 MPV 9.2 D-Dimer Sodium Potassium Chloride Carbon Dioxide Anion Gap BUN Creatinine Est Cr Clr Drug Dosing Est GFR ( Amer) Est GFR (Non-Af Amer) BUN/Creatinine Ratio Glucose POC Glucose 177 H 171 H Estimat Average Glucose Hemoglobin A1c Calcium Total Bilirubin AST ALT Alkaline Phosphatase Troponin I Total Protein Albumin Globulin Albumin/Globulin Ratio Triglycerides Cholesterol LDL Cholesterol, Calc VLDL Cholesterol, Calc HDL Cholesterol Cholesterol/HDL Ratio Lipase 05/05/19 05/05/19 05/05/19 07:29 07:29 07:42 WBC RBC Hgb Hct MCV MCH MCHC RDW Std Deviation RDW Coeff of Abiodun Plt Count MPV D-Dimer Sodium 138 Potassium 3.7 Chloride 104 Carbon Dioxide 26 Anion Gap 7.0 BUN 12 Creatinine 0.76 D Est Cr Clr Drug Dosing 172.4 Est GFR ( Amer) 127.7 Est GFR (Non-Af Amer) 110.2 BUN/Creatinine Ratio 15.3 Glucose 183 H POC Glucose 163 H Estimat Average Glucose 338 Hemoglobin A1c 13.4 H Calcium 8.3 L Total Bilirubin 0.8 AST 23 ALT 51 Alkaline Phosphatase 64 Troponin I Total Protein 6.4 Albumin 3.2 L Globulin 3.2 Albumin/Globulin Ratio 1.0 Triglycerides 378 H Cholesterol 217 H LDL Cholesterol, Calc 108 VLDL Cholesterol, Calc 76 HDL Cholesterol 33 Cholesterol/HDL Ratio 7 Lipase 200 05/05/19 05/05/19 05/05/19 11:47 16:48 16:57 WBC RBC Hgb Hct MCV MCH MCHC RDW Std Deviation RDW Coeff of Abiodun Plt Count MPV D-Dimer Sodium Potassium Chloride Carbon Dioxide Anion Gap BUN Creatinine Est Cr Clr Drug Dosing Est GFR ( Amer) Est GFR (Non-Af Amer) BUN/Creatinine Ratio Glucose POC Glucose 214 H 120 H Estimat Average Glucose Hemoglobin A1c Calcium Total Bilirubin AST ALT Alkaline Phosphatase Troponin I Pending Total Protein Albumin Globulin Albumin/Globulin Ratio Triglycerides Cholesterol LDL Cholesterol, Calc VLDL Cholesterol, Calc HDL Cholesterol Cholesterol/HDL Ratio Lipase 05/05/19 16:57 WBC RBC Hgb Hct MCV MCH MCHC RDW Std Deviation RDW Coeff of Abiodun Plt Count MPV D-Dimer Pending Sodium Potassium Chloride Carbon Dioxide Anion Gap BUN Creatinine Est Cr Clr Drug Dosing Est GFR ( Amer) Est GFR (Non-Af Amer) BUN/Creatinine Ratio Glucose POC Glucose Estimat Average Glucose Hemoglobin A1c Calcium Total Bilirubin AST ALT Alkaline Phosphatase Troponin I Total Protein Albumin Globulin Albumin/Globulin Ratio Triglycerides Cholesterol LDL Cholesterol, Calc VLDL Cholesterol, Calc HDL Cholesterol Cholesterol/HDL Ratio Lipase (1) Pancreatitis Acute pancreatitis complication: unspecified Chronicity: acute Pancreatitis type: unspecified pancreatitis type Qualified Code(s): K85.90 - Acute pancreatitis without necrosis or infection, unspecified
[2019-05-05 17:20] LABS: D Dimer 240 ug/L FEU (0-500)
[2019-05-05] MEDS ORDERED: CYCLOBENZAPRINE HCL 5 MG TAB PO PRN (18:58)
[2019-05-05] MEDS: KETOROLAC TROMETHAMINE 15 MG/ML VIAL IV PRN (20:12)
[2019-05-05] MEDS: ENOXAPARIN INJ 40 MG/0.4 ML SYR SQ SCH (22:25)
[2019-05-06] MEDS: INSULIN ASPART 100 UNITS/ML 3 ML PEN SC SCH ×5 (01:50→17:21)
[2019-05-06] MEDS: LACTATED RINGER'S 1,000 ML IV SCH ×5 (04:15→22:24)
[2019-05-06] MEDS: HYDROmorphone INJ 0.5 MG/0.5 ML SYR IV PRN ×5 (04:51→23:46)
[2019-05-06] MEDS: INSULIN GLARGINE SOLOSTAR 100 UNITS/ML 3 ML PEN SC SCH ×2 (08:21→20:58)
[2019-05-06] MEDS: ONDANSETRON INJ 2 MG/ML 2 ML VIAL IV PRN ×3 (08:29→23:46)
--- NOTE | 2019-05-06 09:06 | Gastroenterology Progress Note ---
Date of Service May 06, 2019 Assessment & Plan (1) Abdominal pain: Patient admitted with abdominal pain thought to be related to acute pancreatitis. The labs from 2 days ago revealed that his liver enzymes within normal limits and his lipase appear to be normalized. I would suggest that t hese be repeated today. Should the patient's abdominal discomfort persist we could certainly consider endoscopic evaluation on Wednesday with an upper endoscopy. Another possible explanation for his symptoms could be a medication such as metformin. Commendations Begin Protonix twice daily Upper endoscopy Wednesday if symptoms do not improve Please obtain a comprehensive metabolic panel and lipase today (2) Pancreatitis: Subjective Patient notes that he has persistent abdominal pain this morning. He describes it as being in the mid abdomen radiating towards his back. His MRI results from yesterday revealed no evidence of choledocholithiasis. Review of Systems Constitutional: no sweats Eyes: no diplopia Respiratory: no change in sputum and no hemoptysis Cardiovascular: no dyspnea at rest Physical Exam Constitutional: well developed and well nourished Neck: trachea midline, no thyromegaly Respiratory: normal respiratory effort, lungs clear to auscultation Cardiovascular: Rate/Rhythm: regular rhythm Gastrointestinal (Abdomen): Percussion/Palpation: + abdomen tender and abdomen soft; no guarding and abdomen not rigid Results & Data Vital Signs (Past 12 Hours) Vital Signs Temp Pulse Resp BP Pulse Ox 05/06/19 07:44 36.8 C 82 20 130/57 L 90 05/06/19 05:02 36.5 C 82 20 146/79 H 95 05/05/19 23:00 36.7 C 83 18 137/79 9 L Laboratory Results Laboratory Results - last 24 hr 05/05/19 05/05/19 05/05/19 11:47 16:48 16:57 D-Dimer POC Glucose 214 H 120 H Troponin I < 0.015 05/05/19 05/05/19 05/05/19 16:57 19:03 22:00 D-Dimer 240 POC Glucose 114 H Troponin I < 0.015 05/05/19 05/06/19 05/06/19 23:59 04:07 06:00 D-Dimer POC Glucose 104 H 104 H Troponin I < 0.015 05/06/19 07:42 D-Dimer POC Glucose 141 H Troponin I Diagnostic Findings MR MRCP CLINICAL HISTORY: pancreatitis abdominal pain. Nausea. Vomiting. COMPARISON STUDY: CT scan dated 05/01/2019, gallbladder ultrasound dated 05/04/2019 FINDINGS: Imaging was performed in the axial and coronal plane. MIP imaging was performed. No gallstones are visualized. There is no evidence for intra or extrahepatic biliary ductal dilatation. There is no evidence for pancreatic ductal dilatation. The common bile duct measures 1.5 mm. There are no peripancreatic fluid collections. The pancreatic parenchyma appears normal on this noncontrast study. There is no evidence for abdominal aortic aneurysm. IMPRESSION: Normal study (1) Pancreatitis Acute pancreatitis complication: unspecified Chronicity: acute Pancreatitis type: unspecified pancreatitis type Qualified Code(s): K85.90 - Acute pancreatitis without necrosis or infection, unspecified
--- NOTE | 2019-05-06 09:26 | Hospitalist Progress Note ---
Date of Service May 06, 2019 Assessment & Plan (1) Pancreatitis: Pt presented with c/o N/V, abdominal pain x several days. multiple ER visits this week with negative CT ABD/PELVIS on 05/01/19 Lipase today 1557 from 1000 yesterday. Normal LFTs. ABD XRAY: no bowel obstruction noted. In ER afebrile, Initial P: 122 down to 100, BP: 156/89 down to 146/80, R: 20, 99% on RA. In ER given zofran, 1L NSS, dilaudid 0.5mg IV Gallbladder ultrasound: No sludge or lithiasis MRCP: unrevealing GI consulted For now continue n.p.o. status, vigorous IV fluids Patient reports drinking alcohol very rarely, last drink 2 to 3 weeks ago (2) Chest pain: Informed by RN in the afternoon as patient was having left-sided chest pain Rule out ACS by serial troponins, EKG: negative Rule out PE by starting with d-dimer: negative Could ultimately be secondary to muscular skeletal pain secondary to multiple emesis resolved (3) Hyperglycemia: (4) Diabetes mellitus, type 2: A1c: 8.8 in 06/2018 Glucose 378 in ER. Was given 10 units insulin R in ER -Hold home metformin A1c 13 Pharmacy glycemic control consulted On Lantus and insulin sliding scale We will need to coordinate with case management regarding affordable insulin regimen for patient upon discharge (5) HTN (hypertension): BP: 156/89 in ER down to 146/80 -Hold lisinopril for now with pancreatitis -Hydralazine prn HTN Pressure systolic 140s 150s, likely secondary to underlying pain Continue to monitor We will consider changing lisinopril to amlodipine for blood pressure control (6) Tobacco use: -Denies nicotine patch -Smoking cessation encouraged (7) Depression: Not currently on medication DVT Prophylaxis -Lovenox SQ Full Code as per discussion with pt Follows with Dr Barton for routine care Subjective ff up for pancreatitis seen resting in bed, not in distress still having abdominal pain- mostly epigastric- relieved with analgesics had 2 episodes of emesis no SOB, chest pain, dizziness, chills no other symptoms Review of Systems Review of Systems: All systems reviewed & are unremarkable except as noted in HPI & below Physical Exam Physical Exam: General- oriented x 3, not in distress, speaks in sentences with no effort or accessory muscle use Eyes- anicteric Neck- no JVD Lungs- clear BS BL no rales Heart- normal rate, regular rhythm; no murmurs Abdomen- normal bowel sounds, nondistended, soft, mild tenderness all quadrants Extremities- no pretibial edema, no calf tenderness Neuro- alert, oriented x 3; no gross focal neurologic deficits Skin- warm & dry Results & Data Vital Signs (Past 12 Hours) Vital Signs Temp Pulse Resp BP Pulse Ox 05/06/19 07:44 36.8 C 82 20 130/57 L 90 05/06/19 05:02 36.5 C 82 20 146/79 H 95 05/05/19 23:00 36.7 C 83 18 137/79 9 L Laboratory Results Laboratory Results - last 24 hr 05/05/19 05/06/19 05/06/19 23:59 04:07 06:00 POC Glucose 104 H 104 H Troponin I < 0.015 05/06/19 05/06/19 05/06/19 07:42 11:47 16:53 POC Glucose 141 H 163 H 178 H Troponin I 05/06/19 20:10 POC Glucose 149 H Troponin I (1) Pancreatitis Acute pancreatitis complication: unspecified Chronicity: acute Pancreatitis type: unspecified pancreatitis type Qualified Code(s): K85.90 - Acute pancreatitis without necrosis or infection, unspecified
[2019-05-06] MEDS: PANTOprazole 40 MG TAB PO SCH ×2 (10:21→20:57)
[2019-05-06] MEDS: ENOXAPARIN INJ 40 MG/0.4 ML SYR SQ SCH (20:58)
[2019-05-06] MEDS: KETOROLAC TROMETHAMINE 15 MG/ML VIAL IV PRN (21:04)
[2019-05-07] MEDS: INSULIN ASPART 100 UNITS/ML 3 ML PEN SC SCH ×4 (00:55→17:25)
[2019-05-07] MEDS: LACTATED RINGER'S 1,000 ML IV SCH ×4 (03:20→18:13)
[2019-05-07] MEDS: HYDROmorphone INJ 0.5 MG/0.5 ML SYR IV PRN ×3 (04:05→20:02)
[2019-05-07] MEDS: KETOROLAC TROMETHAMINE 15 MG/ML VIAL IV PRN ×2 (06:15→15:56)
[2019-05-07] MEDS: PANTOprazole 40 MG TAB PO SCH ×2 (08:01→20:06)
[2019-05-07] MEDS: INSULIN GLARGINE SOLOSTAR 100 UNITS/ML 3 ML PEN SC SCH ×2 (08:01→21:04)
--- NOTE | 2019-05-07 09:23 | Gastroenterology Progress Note ---
Date of Service May 07, 2019 Assessment & Plan (1) Abdominal pain: Patient admitted with recurrent abdominal pain negative MRCP. We can certainly do upper endoscopy to evaluate for evidence of peptic ulcer disease. We would then plan for outpatient endoscopic ultrasound given the recurrent symptoms over the last few months. Recommendations Patient may have a clear liquid diet today N.p.o. at midnight for upper endoscopy on Wednesday Subjective The patient notes having persistent abdominal pain today although it does appear to be better. He describes having any nausea or vomiting and is yet to take any p.o. Review of Systems Constitutional: + malaise; no sweats Eyes: no diplopia Respiratory: no change in sputum and no hemoptysis Cardiovascular: no chest pain with activity and no dyspnea at rest Gastrointestinal: + abdominal pain, + bloating and + nausea Physical Exam Constitutional: WD/WN, vitals as above well developed Eyes: PERRL, conjunctivae normal, anicteric sclerae Respiratory: normal respiratory effort, lungs clear to auscultation Cardiovascular: RRR, no murmur, no edema Gastrointestinal (Abdomen): Percussion/Palpation: + abdomen tender and abdomen soft; no guarding Results & Data Vital Signs (Past 12 Hours) Vital Signs Temp Pulse Pulse Resp BP BP Pulse Ox 05/07/19 07:22 36.8 C 95 H 20 126/74 96 05/07/19 04:48 36.6 C 104 H 22 160/89 H 95 05/07/19 00:00 118 H 151/78 H 05/06/19 23:38 36.5 C 108 H 22 172/100 H 95 Laboratory Results Laboratory Results - last 24 hr 05/06/19 05/06/19 05/06/19 11:47 16:53 20:10 POC Glucose 163 H 178 H 149 H 05/07/19 05/07/19 05/07/19 00:36 06:13 07:35 POC Glucose 141 H 132 H 122 H
--- NOTE | 2019-05-07 10:31 | Hospitalist Progress Note ---
Date of Service May 07, 2019 Assessment & Plan (1) Pancreatitis: Pt presented with c/o N/V, abdominal pain x several days. multiple ER visits this week with negative CT ABD/PELVIS on 05/01/19 Lipase today 1557 from 1000 yesterday. Normal LFTs. ABD XRAY: no bowel obstruction noted. In ER afebrile, Initial P: 122 down to 100, BP: 156/89 down to 146/80, R: 20, 99% on RA. In ER given zofran, 1L NSS, dilaudid 0.5mg IV Gallbladder ultrasound: No sludge or lithiasis MRCP: unrevealing GI consulted Lipase normalized Clear liquids today, n.p.o. after midnight for EGD tomorrow morning Continue IV fluids Patient reports drinking alcohol very rarely, last drink 2 to 3 weeks ago (2) Chest pain: Informed by RN in the afternoon as patient was having left-sided chest pain Rule out ACS by serial troponins, EKG: negative Rule out PE by starting with d-dimer: negative Could ultimately be secondary to muscular skeletal pain secondary to multiple emesis resolved (3) Hyperglycemia: (4) Diabetes mellitus, type 2: A1c: 8.8 in 06/2018 Glucose 378 in ER. Was given 10 units insulin R in ER -Hold home metformin A1c 13 Pharmacy glycemic control consulted On Lantus and insulin sliding scale We will need to coordinate with case management regarding affordable insulin regimen for patient upon discharge (5) HTN (hypertension): BP: 156/89 in ER down to 146/80 -Hold lisinopril for now with pancreatitis -Hydralazine prn HTN Pressure systolic 140s 150s, likely secondary to underlying pain Continue to monitor We will consider changing lisinopril to amlodipine for blood pressure control (6) Tobacco use: -Denies nicotine patch -Smoking cessation encouraged (7) Depression: Not currently on medication DVT Prophylaxis -Lovenox SQ Full Code as per discussion with pt Follows with Dr Barton for routine care Subjective Follow-up for acute pancreatitis Seen resting in bed, uncomfortable secondary to gastric pain Did well overnight but this pain seems to be recurrent this morning No nausea Denies chills, chest pain, shortness of breath No other symptoms Review of Systems Review of Systems: All systems reviewed & are unremarkable except as noted in HPI & below Physical Exam Physical Exam: General- oriented x 3, not in distress, speaks in sentences with no effort or accessory muscle use Eyes- anicteric Neck- no JVD Lungs- clear BS, no crackles, no wheezing bilaterally Heart- normal rate, regular rhythm; no murmurs Abdomen- normal bowel sounds, nondistended, soft, mild epigastric tenderness Extremities- no pretibial edema, no calf tenderness Neuro- alert, oriented x 3; no gross focal neurologic deficits Skin- warm & dry Results & Data Vital Signs (Past 12 Hours) Vital Signs Temp Pulse Pulse Resp BP BP Pulse Ox 05/07/19 07:22 36.8 C 95 H 20 126/74 96 05/07/19 04:48 36.6 C 104 H 22 160/89 H 95 05/07/19 00:00 118 H 151/78 H 05/06/19 23:38 36.5 C 108 H 22 172/100 H 95 (1) Pancreatitis Acute pancreatitis complication: unspecified Chronicity: acute Pancreatitis type: unspecified pancreatitis type Qualified Code(s): K85.90 - Acute pancreatitis without necrosis or infection, unspecified
[2019-05-07 10:32] LABS: Basophils # (auto) 0.03 K/uL (0-0.2); Basophils % (auto) 0.3 %; Eosinophils # (auto) 0.08 K/uL (0-0.5); Eosinophils % (auto) 0.8 %; Hematocrit (blood only) 41.9 % (42-52); Hemoglobin 14.6 g/dL (14.0-18.0); Immature Granulocytes # (auto) 0.06 K/uL (0.00-0.02); Immature Granulocytes % (auto) 0.6 %; Lymphocytes # (auto) 2.08 K/uL (1.2-3.4); Lymphocytes % (auto) 20.2 %; Mean Corpuscular Hgb Conc 34.8 g/dL (32-36); Mean Corpuscular Volume 83.8 fL (80-100); Mean Platelet Volume 9.1 fL (7.4-10.4); Monocytes # (auto) 0.97 K/uL (0.11-0.59); Monocytes % (auto) 9.4 %; Neutrophils # (auto) 7.09 K/uL (1.4-6.5); Neutrophils % (auto) 68.7 %; Platelet Count 216 K/uL (130-400); RDW Coefficient of Variation 12.6 % (11.5-14.5); RDW Standard Deviation 38.2 fL (36.4-46.3); White Blood Count 10.31 K/uL (4.8-10.8)
[2019-05-07 10:56] LABS: BUN Creatinine Ratio 10.5 (10-20); Calcium 8.6 mg/dl (8.5-10.1); Creatinine Clr Calc Pharmacy 158.6 ml/min; Est GFR (African American) 123.8; Est GFR (Non-African American) 106.8; Potassium 3.8 mmol/L (3.5-5.1)
[2019-05-07] MEDS: ONDANSETRON INJ 2 MG/ML 2 ML VIAL IV PRN (15:57)
[2019-05-07] MEDS: HydrALAZINE HCL 20 MG/ML VIAL IV PRN (20:01)
[2019-05-07] MEDS: ENOXAPARIN INJ 40 MG/0.4 ML SYR SQ SCH (20:05)
[2019-05-08] MEDS: KETOROLAC TROMETHAMINE 15 MG/ML VIAL IV PRN ×2 (00:10→18:21)
[2019-05-08] MEDS: INSULIN ASPART 100 UNITS/ML 3 ML PEN SC SCH ×5 (00:18→20:21)
[2019-05-08] MEDS: ONDANSETRON INJ 2 MG/ML 2 ML VIAL IV PRN ×2 (00:52→08:55)
[2019-05-08] MEDS: HYDROmorphone INJ 0.5 MG/0.5 ML SYR IV PRN ×5 (00:52→23:42)
[2019-05-08] MEDS: LACTATED RINGER'S 1,000 ML IV SCH ×3 (00:56→22:12)
[2019-05-08] MEDS: PANTOprazole 40 MG TAB PO SCH ×2 (07:55→20:19)
[2019-05-08] MEDS: INSULIN GLARGINE SOLOSTAR 100 UNITS/ML 3 ML PEN SC SCH ×2 (08:00→20:19)
--- NOTE | 2019-05-08 11:05 | Anesthesiology Consultation ---
Date of Service May 08, 2019 Assessment & Plan (1) Encounter for pre-operative examination: Chart Review Chart Review: Acceptable Risk for Surgery and Patient NOT seen in Pre Admission Testing Consults Requested none History Surgery Operation Date: 05/08/19 08:30 Proposed Procedures p Esophagogastroduodenoscopy Dr Robert Jones Height/Weight Height: 6 ft 2 in Weight: 122.2 kg Allergies Allergy/AdvReac Type Severity Reaction Status Date / Time Cephalosporins Allergy Unknown Unknown Verified 05/08/19 10:57 NSAIDS (Non-Steroidal AdvReac Unknown gastroparesis, Verified 05/08/19 10:57 Anti-Inflamma kidney problems Medications Home Medications Medication Instructions Recorded Confirmed Last Taken lisinopril 10 mg PO DAILY 05/01/19 05/04/19 05/04/19 metformin 1,000 mg PO BID 05/01/19 05/04/19 05/04/19 AM DOSE sildenafil (antihypertensive) 20 mg PO DIRECTED PRN 05/01/19 05/04/19 04/26/19 metoclopramide HCl [Reglan] 10 mg PO Q6H PRN 05/04/19 05/04/19 05/04/19 AM DOSE Active Medications Generic Name Dose Route Start Last Admin Trade Name Freq PRN Reason Stop Dose Admin Cyclobenzaprine HCl 5 mg 05/05/19 18:58 05/06/19 00:02 Flexeril PO 06/04/19 20:59 5 mg TID PRN Administration Muscle Spasm Enoxaparin Sodium 40 mg 05/04/19 21:00 05/07/19 20:05 Lovenox SQ 06/03/19 20:59 40 mg Q24H SOPHIA Administration Hydralazine HCl 10 mg 05/04/19 20:46 05/07/19 20:01 Hydralazine Hcl IV 06/03/19 20:45 10 mg Q6H PRN Administration Hypertension Hydromorphone HCl 0.5 mg 05/04/19 20:46 05/08/19 06:07 Dilaudid IV 05/18/19 20:45 0.5 mg Q4H PRN Administration Pain Lactated Ringer's 1,000 mls @ 100 mls/hr 05/04/19 20:46 05/08/19 08:55 Lr IV 06/03/19 20:45 100 mls/hr .Q10H SOPHIA Administration Insulin Aspart 0 units 05/05/19 08:00 05/08/19 06:10 Novolog Flexpen SC 06/04/19 07:59 Not Given Q6 SOPHIA Protocol Insulin Glargine 0 units 05/04/19 21:00 05/08/19 08:00 Lantus Solostar Pen SC 06/03/19 20:59 15 units BID SOPHIA Administration Protocol Ketorolac Tromethamine 15 mg 05/05/19 18:58 05/08/19 00:10 Toradol IV 05/10/19 18:57 15 mg Q6H PRN Administration Muscle Spasm Ondansetron HCl 4 mg 05/04/19 20:46 05/08/19 08:55 Zofran IV 06/03/19 20:45 4 mg Q6H PRN Administration Nausea Pantoprazole Sodium 40 mg 05/06/19 09:15 05/08/19 07:55 Protonix PO 06/05/19 09:14 Not Given BID SOPHIA NPO Date Last Intake of Fluids: 05/07/19 Time Last Intake of Fluids: 18:00 Date Last Intake of Solids: 05/07/19 Time Last Intake of Solids: 18:00 Past Medical History Medical History Tobacco use (Chronic) MRSA (methicillin resistant Staphylococcus aureus) carrier Gastroparesis (Acute) HTN (hypertension) (Chronic) Diabetes mellitus, type 2 (Chronic) History of ventricular tachycardia (Chronic) "nonsustained" History of DVT (deep vein thrombosis) (Chronic) IBS (irritable bowel syndrome) (Chronic) Gastroparesis (Chronic) Nicotine dependence (Chronic) Obesity (Chronic) Obstructive sleep apnea (Chronic) Depression (Chronic) Diabetes mellitus with neurological manifestation (Chronic) "Diabetic neuropathy reported in hands and feet" Intellectual disability (Chronic) Diabetes (Chronic) Hyperlipidemia (Chronic) Hypertension (Chronic) Tobacco use (Chronic) Chest pain (Inactive) Exercise / Class Metabolic Activity II 4-5 Yardwork/Stairs/Walk up hill Past Family History Family History Other Family history non-contributory Past Surgical History Surgical History S/P left knee arthroscopy (Chronic) S/P tonsillectomy (Chronic) Status post incision and drainage (Chronic) S/P tonsillectomy (Chronic) Past Anesthesia History No Hx of Anesthesia Complications and No Family Hx of Anesthesia Complications History of PONV No Hx of PONV and No Hx of Motion Sickness Social History Smoking Status: Current every day smoker tobacco type: cigarettes Smoking cigarettes per day: 30-40 Do You Dip or Chew Tobacco: No Hx Alcohol Use: Yes Alcohol type: beer and hard liquor alcohol intake frequency: holidays/special occasions only Alcohol Intake Frequency Comment: 1 berr or mixed drink ~5x/year Hx Substance Use: No substance use type: does not use Physical Exam Vital Signs Last Vital Signs Temp 37.0 C 05/08/19 10:59 Pulse 102 H 05/08/19 10:59 Resp 16 05/08/19 10:59 BP 110/84 05/08/19 10:59 Pulse Ox 96 05/08/19 10:59 Testing Laboratory Results 05/07/19 10:01 05/07/19 10:01 Hemoglobin A1c 13.4 % (4.5-5.6) H 05/05/19 07:29 Urine Color Yellow 05/04/19 15:35 Urine Appearance Clear (Clear) 05/04/19 15:35 Urine pH 6.0 (4.5-7.5) 05/04/19 15:35 Ur Specific [place] 1.040 (1.000-1.030) H 05/04/19 15:35 Urine Protein Negative (Negative) 05/04/19 15:35 Urine Glucose (UA) 3+ (Negative) H 05/04/19 15:35 Urine Ketones 1+ (Negative) H 05/04/19 15:35 Urine Nitrite Negative (Negative) 05/04/19 15:35 Ur Leukocyte Esterase Negative (Negative) 05/04/19 15:35 05/08/19 05/08/19 06:04 00:06 POC Glucose 77 101 H Electrocardiogram Date: 05/05/19 Findings: + NSR @ (91) Normal sinus rhythm Normal ECG When compared with ECG of 21-MAR-2019 09:54, No significant change was found Confirmed by Matthew Marie ([id number]) on 05/06/2019 12:51:32 PM
--- NOTE | 2019-05-08 11:07 | History & Physical Bridge Note ---
Date of Service May 08, 2019 History & Physical Bridge Note I have examined the patient, reviewed the History & Physical and in the interval since the performance of the History & Physical I have noted the following changes of clinical significance: no changes noted. Due to the patient's persistent abdominal discomfort we are planning for upper endoscopy this afternoon. We have discussed the risks to include bleeding, infection, perforation, pain and need for follow-up studies.
[2019-05-08] MEDS ORDERED: LIDOCAINE HCL 2% 2 ML VIAL/AMP(20MG/ML) INFIL ONE (11:39)
[2019-05-08] MEDS ORDERED: PROPOFOL IV EMULSION 10 MG/ML 20 ML VIAL IV ONE (11:39)
--- NOTE | 2019-05-08 12:04 | GI REPORT ---
Patient Name: Bry Akhtar Procedure Date: 05/08/2019 11:43 AM Date of : 1975 Admit Type: Inpatient Age: 43 Gender: Male Attending MD: Belen Jones DO Procedure: Upper GI endoscopy Providers: Belen Jones DO Referring MD: Chacorta Kendall Indications: Epigastric abdominal pain Medicines: Monitored Anesthesia Care Complications: No immediate complications. Estimated blood loss: Minimal. Estimated Blood Loss: Estimated blood loss was minimal. Procedure: Pre-Anesthesia Assessment: - Prior to the procedure, a History and Physical was performed, and patient medications, allergies and sensitivities were reviewed. The patient's tolerance of previous anesthesia was reviewed. - The risks and benefits of the procedure and the sedation options and risks were discussed with the patient. All questions were answered and informed consent was obtained. - Patient identification and proposed procedure were verified prior to the procedure by the physician, the nurse and the cytogeneticist. The procedure was verified in the procedure room. - Pre-procedure physical examination revealed no contraindications to sedation. - ASA Grade Assessment: III - A patient with severe systemic disease. - After reviewing the risks and benefits, the patient was deemed in satisfactory condition to undergo the procedure. - The anesthesia plan was to use monitored anesthesia care (MAC). - Immediately prior to administration of medications, the patient was re-assessed for adequacy to receive sedatives. - The heart rate, respiratory rate, oxygen saturations, blood pressure, adequacy of pulmonary ventilation, and response to care were monitored throughout the procedure. - The physical status of the patient was re-assessed after the procedure. After obtaining informed consent, the endoscope was passed under direct vision. Throughout the procedure, the patient's blood pressure, pulse, and oxygen saturations were monitored continuously. The scope was introduced through the mouth, and advanced to the third part of duodenum. The upper GI endoscopy was accomplished without difficulty. The patient tolerated the procedure well. Findings: LA Grade D (one or more mucosal breaks involving at least 75% of esophageal circumference) esophagitis with no bleeding was found in the lower third of the esophagus. Biopsies were taken with a cold forceps for histology. Estimated blood loss was minimal. Diffuse mild inflammation characterized by congestion (edema), erythema and granularity was found in the entire examined stomach. Biopsies were taken with a cold forceps for histology. Estimated blood loss was minimal. Patchy moderate inflammation characterized by congestion (edema), erythema, granularity and shallow ulcerations was found in the duodenal bulb, in the second portion of the duodenum and in the third portion of the duodenum. Biopsies were taken with a cold forceps for histology. Estimated blood loss was minimal. Impression: - LA Grade D reflux esophagitis. Biopsied. - Gastritis. Biopsied. - Duodenitis. Biopsied. Recommendation: - Return patient to [facility] for [facility] care. - Use Protonix (pantoprazole) 40 mg PO BID. - Use sucralfate tablets 1 gram PO QID for 4 weeks. - Repeat upper endoscopy in 6 weeks for surveillance. Belen Jones D.O. Belen Jones, 05/08/2019 12:04:03 PM This report has been signed electronically. Note Initiated On: 05/08/2019 11:43 AM Number of Addenda: 0 I attest to the content of the Intraoperative Record and orders documented therein, exceptions below {[id number]}
--- NOTE | 2019-05-08 12:09 | Communication Note ---
Date of Service: May 08, 2019 The patient underwent upper endoscopy today for persistent abdominal pain he was found to have evidence of severe esophagitis, mild gastritis and mild duode nitis. Recommendations Protonix or equivalent 40 mg twice daily for 6 weeks then 1 time daily thereafter Carafate 4 times daily for 4 weeks Repeat upper endoscopy in 6 to 8 weeks at same time as endoscopic ultrasound Advance diet as tolerated Please call with any questions or concerns
--- NOTE | 2019-05-08 12:21 | Anesthesiology Progress Note ---
Date of Service May 08, 2019 Anesthesia Post Procedure Vital Signs Vital Signs: Temp Pulse Pulse Resp BP BP Pulse Ox 05/08/19 12:10 88 16 168/86 H 95 05/08/19 11:55 88 16 140/75 95 05/08/19 10:59 37.0 C 102 H 16 110/84 96 05/08/19 07:26 37.2 C 53 L 17 123/78 94 05/08/19 04:48 36.6 C 87 20 157/85 H 97 05/08/19 00:34 36.5 C 96 H 20 137/77 95 05/07/19 23:43 89 05/07/19 20:35 118/70 05/07/19 19:51 36.8 C 96 H 20 164/85 H 95 05/07/19 15:21 90 05/07/19 14:49 36.9 C 68 20 104/67 94 05/07/19 12:35 36.6 C 103 H 20 163/94 H 96 Pain Intensity Abdomen: Pain Intensity: 7 Transfer of Care Handoff Completed per policy Notes Mental Status: alert / awake / arousable and participated in evaluation Patient Amnestic to Procedure: Yes Nausea / Vomiting: adequately controlled Pain: adequately controlled Airway Patency, RR, SpO2: stable & adequate BP & HR: stable & adequate Hydration State: stable & adequate Anesthetic Complications: no major complications apparent and Pt Satisfied with anesthetic care
--- NOTE | 2019-05-08 12:34 | Pharmacy Report ---
Pharmacy Glycemic Short Note 2 - Date of Service May 08, 2019 - Glycemic Short BSG Results (Last 24 hours): 05/07/19 05/07/19 05/08/19 16:37 20:27 00:06 POC Glucose 89 128 H 101 H 05/08/19 05/08/19 06:04 07:53 POC Glucose 77 87 ASSESSMENT: * BSGs over the previous 24hrs well controlled: 64-53-840-12-89mg/dL. He required 30 units of insulin yesterday. PLAN FOR INPATIENT GLYCEMIC CONTROL: * Hold outpatient oral diabetes medications * Basal insulin * Lantus scale SQ BID, BSGs <80 hold lantus, BSG 80-140 give 15 units, BSGs >140 give 20 units * Bolus insulin * NovoLog per scale Q6hrs while NPO * Goal Range: Low 110 mg/dL - High 140 mg/dL * Correction Factor: 20 mg/dL/unit * Nutritional / Prandial insulin per carb ratio of 1 unit per 6 grams CHO consumed
[2019-05-08] MEDS: SUCRALFATE 1 GM/10 ML UDC PO SCH ×3 (13:31→20:18)
[2019-05-08] MEDS: ENOXAPARIN INJ 40 MG/0.4 ML SYR SQ SCH (20:18)
--- NOTE | 2019-05-08 20:54 | Hospitalist Progress Note ---
Date of Service May 08, 2019 Assessment & Plan (1) Pancreatitis: Pt presented with c/o N/V, abdominal pain x several days. multiple ER visits this week with negative CT ABD/PELVIS on 05/01/19 Lipase today 1557 from 1000 yesterday. Normal LFTs. ABD XRAY: no bowel obstruction noted. In ER afebrile, Initial P: 122 down to 100, BP: 156/89 down to 146/80, R: 20, 99% on RA. In ER given zofran, 1L NSS, dilaudid 0.5mg IV Gallbladder ultrasound: No sludge or lithiasis MRCP: unrevealing GI consulted Lipase normalized for EGD today Continue IV fluids Patient reports drinking alcohol very rarely, last drink 2 to 3 weeks ago (2) Chest pain: Informed by RN in the afternoon as patient was having left-sided chest pain Rule out ACS by serial troponins, EKG: negative Rule out PE by starting with d-dimer: negative Could ultimately be secondary to muscular skeletal pain secondary to multiple emesis resolved (3) Hyperglycemia: (4) Diabetes mellitus, type 2: A1c: 8.8 in 06/2018 Glucose 378 in ER. Was given 10 units insulin R in ER -Hold home metformin A1c 13 Pharmacy glycemic control consulted On Lantus and insulin sliding scale We will need to coordinate with case management regarding affordable insulin regimen for patient upon discharge (5) HTN (hypertension): BP: 156/89 in ER down to 146/80 -Hold lisinopril for now with pancreatitis -Hydralazine prn HTN Pressure systolic 140s-150s, likely secondary to underlying pain Continue to monitor (6) Tobacco use: -Denies nicotine patch -Smoking cessation encouraged (7) Depression: Not currently on medication DVT Prophylaxis -Lovenox SQ Full Code as per discussion with pt Follows with Dr Barton for routine care Subjective ff up for abdominal pain resting in bed, not in distress still has epigastric pain- relieved by PRN analgesics no nausea (+) flatus Review of Systems Review of Systems: All systems reviewed & are unremarkable except as noted in HPI & below Physical Exam Physical Exam: General- oriented x 3, not in distress, speaks in sentences with no effort or accessory muscle use Eyes- anicteric Neck- no JVD Lungs- clear BS BL Heart- normal rate, regular rhythm; no murmurs Abdomen- normal bowel sounds, nondistended, soft, (+) epigastric tenderness Extremities- no pretibial edema, no calf tenderness Neuro- alert, oriented x 3; no gross focal neurologic deficits Skin- warm & dry Results & Data Vital Signs (Past 12 Hours) Vital Signs Temp Pulse Pulse Resp BP BP Pulse Ox 05/08/19 20:12 157/81 H 05/08/19 18:50 36.8 C 101 H 18 164/83 H 95 05/08/19 16:58 100 H 05/08/19 15:53 36.7 C 100 H 18 142/77 H 96 05/08/19 12:49 36.7 C 97 H 18 164/93 H 95 05/08/19 12:25 99 H 18 146/95 H 95 05/08/19 12:10 88 16 168/86 H 95 05/08/19 11:55 88 16 140/75 95 05/08/19 10:59 37.0 C 102 H 16 110/84 96 (1) Pancreatitis Acute pancreatitis complication: unspecified Chronicity: acute Pancreatitis type: unspecified pancreatitis type Qualified Code(s): K85.90 - Acute pancreatitis without necrosis or infection, unspecified
[2019-05-09] MEDS: KETOROLAC TROMETHAMINE 15 MG/ML VIAL IV PRN ×2 (00:59→18:28)
[2019-05-09] MEDS: ONDANSETRON INJ 2 MG/ML 2 ML VIAL IV PRN ×3 (00:59→18:29)
[2019-05-09] MEDS: HYDROmorphone INJ 0.5 MG/0.5 ML SYR IV PRN ×3 (05:01→19:38)
[2019-05-09] MEDS: LACTATED RINGER'S 1,000 ML IV SCH ×2 (08:13→18:28)
[2019-05-09] MEDS: INSULIN GLARGINE SOLOSTAR 100 UNITS/ML 3 ML PEN SC SCH ×2 (08:14→21:20)
[2019-05-09] MEDS: SUCRALFATE 1 GM/10 ML UDC PO SCH ×4 (08:14→20:11)
[2019-05-09] MEDS: INSULIN ASPART 100 UNITS/ML 3 ML PEN SC SCH ×4 (08:14→21:20)
[2019-05-09] MEDS: PANTOprazole 40 MG TAB PO SCH ×2 (08:15→20:12)
[2019-05-09 09:43] LABS: Basophils # (auto) 0.03 K/uL (0-0.2); Basophils % (auto) 0.4 %; Eosinophils # (auto) 0.17 K/uL (0-0.5); Eosinophils % (auto) 2.2 %; Hematocrit (blood only) 42.9 % (42-52); Hemoglobin 15.1 g/dL (14.0-18.0); Immature Granulocytes % (auto) 1.3 %; Lymphocytes # (auto) 1.75 K/uL (1.2-3.4); Lymphocytes % (auto) 22.8 %; Mean Corpuscular Hgb Conc 35.2 g/dL (32-36); Mean Corpuscular Volume 84.4 fL (80-100); Mean Platelet Volume 8.8 fL (7.4-10.4); Monocytes # (auto) 0.57 K/uL (0.11-0.59); Monocytes % (auto) 7.4 %; Neutrophils # (auto) 5.05 K/uL (1.4-6.5); Neutrophils % (auto) 65.9 %; Platelet Count 232 K/uL (130-400); RDW Coefficient of Variation 12.6 % (11.5-14.5); RDW Standard Deviation 38.4 fL (36.4-46.3); Red Blood Count 5.08 M/uL (4.7-6.1); White Blood Count 7.67 K/uL (4.8-10.8)
[2019-05-09 10:06] LABS: BUN Creatinine Ratio 8.4 (10-20); Calcium 8.6 mg/dl (8.5-10.1); Creatinine Clr Calc Pharmacy 167.9 ml/min; Est GFR (Non-African American) 109.6; Potassium 3.3 mmol/L (3.5-5.1)
[2019-05-09 12:26] LABS: Appearance Urine Clear (Clear); Bilirubin Urine Negative (Negative); Blood Urine Negative (Negative); Color Urine Yellow; Glucose Urine UA 1+ (Negative); Ketones Urine 1+ (Negative); Leukocyte Esterase Urine Negative (Negative); Nitrite Urine Negative (Negative); Protein Urine Negative (Negative); Specific Gravity Urine 1.009 (1.000-1.030); Urobilinogen Urine Negative (Negative)
--- NOTE | 2019-05-09 14:50 | Gastroenterology Progress Note ---
Date of Service May 09, 2019 Assessment & Plan (1) Abdominal pain: Pain likely secondary to marked esophagitis seen on EGD. However, may also have component of IBS. Recent CT with IV, oral contrast was normal. Continue BID PPI and sucralfate. Will also add dicyclomine ac/hs. Would consider not restarting metoclopramide on discharge as may be contributing to agitation. Consider non GI cause of lower back pain. Narcotics may contribute to reflux and abdominal pain - would limit narcotics. Present on Admission?: Yes Supervising Physician Co-Signing Physician Notes I saw and evaluated the patient. I suspect many of his symptoms are related to his underlying esophagitis and talk with the patient that it may take a few weeks for him to feel back to normal. Recommendations Twice daily PPI for 6 weeks and 1 time daily thereafter Carafate 4 times daily for 4 weeks Bentyl 10 mg twice daily Outpatient endoscopic ultrasound with upper endoscopy in 6 weeks Please call with any questions or concerns, GI to sign off for the present time Subjective Mr. Akhtar was admitted on 05/04 for abdominal pain. EGD yesterday with grade D reflux esophagitis. Today pt states that he has post prandial lower back pain that radiates to the abdomen. Able to eat all of breakfast but tells me that eating caused pain. Current meds for esophagitis: BID PPI, carafate. Review of Systems Constitutional: no fever, no chills, no body aches, no fatigue and no weakness Eyes: no eye pain Ear, Nose, Mouth, Throat: no ear pain, no tinnitus and no dizziness Respiratory: no cough, no dyspnea and no wheezing Cardiovascular: no chest pain, no palpitations and no syncope Gastrointestinal: + abdominal pain and + nausea; no vomiting Genitourinary: no dysuria Musculoskeletal: + back pain Integumentary: no rash and no lesions Neurologic: no dizziness, no syncope and no headache(s) Psychiatric: appetite good but pain with eating Hematologic / Lymphatic: no easy bleeding and no night sweats Physical Exam Constitutional: WD/WN, vitals as above well developed and + obese Eyes: PERRL, conjunctivae normal, anicteric sclerae ENMT: external ear and nose normal, oropharynx normal Neck: trachea midline, no thyromegaly Respiratory: normal respiratory effort, lungs clear to auscultation Cardiovascular: RRR, no murmur, no edema Gastrointestinal (Abdomen): Inspection/Auscultation: no abdominal edema Percussion/Palpation: + abdomen tender (tender over mid and lower abdomen, bilaterally) and abdomen soft Skin: no rashes, warm and dry Neurologic: PERRL, EOMI, accommodation nl, no face palsy, no dysarthria no focal neurological changes Psychiatric: Orientation: alert and oriented x 3 Mood: + irritable mood Lymphatic: no cervical or axillary lymphadenopathy Results & Data Vital Signs (Past 12 Hours) Vital Signs Temp Pulse Resp BP BP Pulse Ox 05/09/19 11:45 37.0 C 90 20 128/75 96 05/09/19 07:21 36.5 C 87 20 145/70 H 96 05/09/19 05:49 128/70 05/09/19 04:32 36.7 C 86 24 165/98 H 94
--- NOTE | 2019-05-09 15:30 | Hospitalist Progress Note ---
Date of Service May 09, 2019 Assessment & Plan (1) Pancreatitis: Pt presented with c/o N/V, abdominal pain x several days. multiple ER visits this week with negative CT ABD/PELVIS on 05/01/19 Lipase today 1557 from 1000 yesterday. Normal LFTs. ABD XRAY: no bowel obstruction noted. In ER afebrile, Initial P: 122 down to 100, BP: 156/89 down to 146/80, R: 20, 99% on RA. In ER given zofran, 1L NSS, dilaudid 0.5mg IV Gallbladder ultrasound: No sludge or lithiasis MRCP: unrevealing Lipase normalized GI consulted EGD: Multiple gastritis, duodenitis Protonix 40 mg p.o. twice daily, sucralfate 1 g p.o. 4 times daily x4 weeks recommend Repeat upper endoscopy in 6 weeks for surveillance Continue to monitor Patient reports drinking alcohol very rarely, last drink 2 to 3 weeks ago (2) Chest pain: Informed by RN in the afternoon as patient was having left-sided chest pain Rule out ACS by serial troponins, EKG: negative Rule out PE by starting with d-dimer: negative Could ultimately be secondary to muscular skeletal pain secondary to multiple emesis resolved (3) Hyperglycemia: (4) Diabetes mellitus, type 2: A1c: 8.8 in 06/2018 Glucose 378 in ER. Was given 10 units insulin R in ER -Hold home metformin A1c 13 Pharmacy glycemic control consulted On Lantus and insulin sliding scale We will need to coordinate with case management regarding affordable insulin regimen for patient upon discharge (5) HTN (hypertension): BP: 156/89 in ER down to 146/80 -Hold lisinopril for now in light of pancreatitis of unknown etiology -Hydralazine prn HTN Blood pressure increased to systolic 180s today Start amlodipine 5 mg p.o. daily Monitor and titrate amlodipine accordingly (6) Tobacco use: -Denies nicotine patch -Smoking cessation encouraged (7) Depression: Not currently on medication DVT Prophylaxis -Lovenox SQ Full Code as per discussion with pt Follows with Dr Barton for routine care Subjective Follow-up for acute hepatitis, epigastric pain Seen resting in bed, not in distress States he still has epigastric pain, worse with eating No nausea on exam Denies shortness of breath, chest pain, palpitations, dizziness No other symptoms Review of Systems Review of Systems: All systems reviewed & are unremarkable except as noted in HPI & below Physical Exam Physical Exam: General- oriented x 3, not in distress, speaks in sentences with no effort or accessory muscle use Eyes- anicteric Neck- no JVD Lungs- clear breath sounds bilaterally Heart- normal rate, regular rhythm; no murmurs Abdomen- normal bowel sounds, nondistended, soft, positive moderate tenderness to the upper quadrants Extremities- no pretibial edema, no calf tenderness Neuro- alert, oriented x 3; no gross focal neurologic deficits Skin- warm & dry Results & Data Vital Signs (Past 12 Hours) Vital Signs Temp Pulse Resp BP BP Pulse Ox 05/09/19 11:45 37.0 C 90 20 128/75 96 05/09/19 07:21 36.5 C 87 20 145/70 H 96 05/09/19 05:49 128/70 05/09/19 04:32 36.7 C 86 24 165/98 H 94 Laboratory Results Laboratory Results - last 24 hr 05/08/19 05/09/19 05/09/19 20:17 07:30 09:26 WBC 7.67 RBC 5.08 Hgb 15.1 Hct 42.9 MCV 84.4 MCH 29.7 MCHC 35.2 RDW Std Deviation 38.4 RDW Coeff of Abiodun 12.6 Plt Count 232 MPV 8.8 Immature Gran % (Auto) 1.3 Neut % (Auto) 65.9 Lymph % (Auto) 22.8 [place]ayer % (Auto) 7.4 Eos % (Auto) 2.2 Baso % (Auto) 0.4 Immature Gran # (Auto) 0.10 H Neut # (Auto) 5.05 Lymph # (Auto) 1.75 [place]ayer # (Auto) 0.57 Eos # (Auto) 0.17 Baso # (Auto) 0.03 Sodium Potassium Chloride Carbon Dioxide Anion Gap BUN Creatinine Est Cr Clr Drug Dosing Est GFR ( Amer) Est GFR (Non-Af Amer) BUN/Creatinine Ratio Glucose POC Glucose 90 116 H Calcium Urine Color Urine Appearance Urine pH Ur Specific [place] Urine Protein Urine Glucose (UA) Urine Ketones Urine Blood Urine Nitrite Urine Bilirubin Urine Urobilinogen Ur Leukocyte Esterase 05/09/19 05/09/19 05/09/19 09:26 11:36 12:15 WBC RBC Hgb Hct MCV MCH MCHC RDW Std Deviation RDW Coeff of Abiodun Plt Count MPV Immature Gran % (Auto) Neut % (Auto) Lymph % (Auto) [place] % (Auto) Eos % (Auto) Baso % (Auto) Immature Gran # (Auto) Neut # (Auto) Lymph # (Auto) [place]ayer # (Auto) Eos # (Auto) Baso # (Auto) Sodium 136 Potassium 3.3 L Chloride 100 Carbon Dioxide 27 Anion Gap 9.0 BUN 6 L Creatinine 0.77 Est Cr Clr Drug Dosing 167.9 Est GFR ( Amer) 127.0 Est GFR (Non-Af Amer) 109.6 BUN/Creatinine Ratio 8.4 L Glucose 173 H POC Glucose 152 H Calcium 8.6 Urine Color Yellow Urine Appearance Clear Urine pH 7.0 Ur Specific [place] 1.009 Urine Protein Negative Urine Glucose (UA) 1+ H Urine Ketones 1+ H Urine Blood Negative Urine Nitrite Negative Urine Bilirubin Negative Urine Urobilinogen Negative Ur Leukocyte Esterase Negative 05/09/19 05/09/19 16:39 18:14 WBC RBC Hgb Hct MCV MCH MCHC RDW Std Deviation RDW Coeff of Abiodun Plt Count MPV Immature Gran % (Auto) Neut % (Auto) Lymph % (Auto) [place] % (Auto) Eos % (Auto) Baso % (Auto) Immature Gran # (Auto) Neut # (Auto) Lymph # (Auto) Thayer # (Auto) Eos # (Auto) Baso # (Auto) Sodium Potassium Chloride Carbon Dioxide Anion Gap BUN Creatinine Est Cr Clr Drug Dosing Est GFR ( Amer) Est GFR (Non-Af Amer) BUN/Creatinine Ratio Glucose POC Glucose 133 H 137 H Calcium Urine Color Urine Appearance Urine pH Ur Specific [place] Urine Protein Urine Glucose (UA) Urine Ketones Urine Blood Urine Nitrite Urine Bilirubin Urine Urobilinogen Ur Leukocyte Esterase (1) Pancreatitis Acute pancreatitis complication: unspecified Chronicity: acute Pancreatitis type: unspecified pancreatitis type Qualified Code(s): K85.90 - Acute pancreatitis without necrosis or infection, unspecified
[2019-05-09] MEDS: HydrALAZINE HCL 20 MG/ML VIAL IV PRN (15:36)
[2019-05-09] MEDS: DICYCLOMINE HCL 10 MG CAP PO SCH ×2 (16:08→20:11)
[2019-05-09] MEDS ORDERED: AMLODIPINE BESYLATE 5 MG TAB PO ONE (19:39)
[2019-05-09] MEDS: ENOXAPARIN INJ 40 MG/0.4 ML SYR SQ SCH (20:12)
[2019-05-09] MEDS ORDERED: POTASSIUM CHLORIDE 20 MEQ TABCR PO STA (20:52)
[2019-05-10] MEDS: ONDANSETRON INJ 2 MG/ML 2 ML VIAL IV PRN ×2 (00:33→06:17)
[2019-05-10] MEDS: KETOROLAC TROMETHAMINE 15 MG/ML VIAL IV PRN ×2 (00:33→06:17)
[2019-05-10] MEDS: DICYCLOMINE HCL 10 MG CAP PO SCH ×4 (07:51→21:16)
[2019-05-10] MEDS: SUCRALFATE 1 GM/10 ML UDC PO SCH ×4 (07:52→21:16)
[2019-05-10 08:00] LABS: Basophils # (auto) 0.02 K/uL (0-0.2); Basophils % (auto) 0.3 %; Eosinophils # (auto) 0.19 K/uL (0-0.5); Eosinophils % (auto) 3.1 %; Hematocrit (blood only) 43.2 % (42-52); Hemoglobin 15.2 g/dL (14.0-18.0); Immature Granulocytes # (auto) 0.09 K/uL (0.00-0.02); Immature Granulocytes % (auto) 1.5 %; Lymphocytes # (auto) 1.71 K/uL (1.2-3.4); Lymphocytes % (auto) 27.8 %; Mean Corpuscular Hgb Conc 35.2 g/dL (32-36); Mean Corpuscular Volume 83.2 fL (80-100); Monocytes # (auto) 0.61 K/uL (0.11-0.59); Monocytes % (auto) 9.9 %; Neutrophils # (auto) 3.53 K/uL (1.4-6.5); Neutrophils % (auto) 57.4 %; Platelet Count 224 K/uL (130-400); RDW Coefficient of Variation 12.6 % (11.5-14.5); RDW Standard Deviation 37.8 fL (36.4-46.3); Red Blood Count 5.19 M/uL (4.7-6.1); White Blood Count 6.15 K/uL (4.8-10.8)
[2019-05-10] MEDS: INSULIN ASPART 100 UNITS/ML 3 ML PEN SC SCH ×4 (08:31→21:17)
[2019-05-10] MEDS: PANTOprazole 40 MG TAB PO SCH ×2 (08:31→21:16)
[2019-05-10] MEDS: INSULIN GLARGINE SOLOSTAR 100 UNITS/ML 3 ML PEN SC SCH ×2 (08:33→21:17)
[2019-05-10 08:35] LABS: Albumin Level 3.5 gm/dl (3.4-5.0); BUN Creatinine Ratio 8.5 (10-20); Bilirubin Direct 0.2 mg/dl (0-0.2); Calcium 8.8 mg/dl (8.5-10.1); Est GFR (African American) 129.8; Potassium 3.4 mmol/L (3.5-5.1)
[2019-05-10 08:38] LABS: Bilirubin,Total 0.8 mg/dl (0.2-1); Total Protein 7.3 gm/dl (6.4-8.2)
[2019-05-10] MEDS: HYDROmorphone INJ 0.5 MG/0.5 ML SYR IV PRN ×2 (09:16→17:24)
[2019-05-10] MEDS ORDERED: POTASSIUM CHLORIDE 20 MEQ TABCR PO ONE (11:30)
[2019-05-10] MEDS ORDERED: TRAMADOL HCL 50 MG TABLET PO PRN (12:38)
--- NOTE | 2019-05-10 17:42 | Hospitalist Progress Note ---
Date of Service May 10, 2019 Assessment & Plan (1) Pancreatitis: Pt presented with c/o N/V, abdominal pain x several days. multiple ER visits this week with negative CT ABD/PELVIS on 05/01/19 Was given IV fluid and kept n.p.o. initially Pancreatitis seems to be improving Still complains to have pain with food Gallbladder ultrasound: No sludge or lithiasis MRCP: unrevealing Lipase normalized GI consulted ongoing epigastric pain EGD: Multiple gastritis, duodenitis Protonix 40 mg p.o. twice daily, sucralfate 1 g p.o. 4 times daily x4 weeks recommend Repeat upper endoscopy in 6 weeks for surveillance Continue to monitor Patient reports drinking alcohol very rarely, last drink 2 to 3 weeks ago No withdrawal symptoms (2) Chest pain: Informed by RN in the afternoon as patient was having left-sided chest pain Rule out ACS by serial troponins, EKG: negative Rule out PE by starting with d-dimer: negative Denies any more chest pain (3) Hyperglycemia: (4) Diabetes mellitus, type 2: A1c: 8.8 in 06/2018 Glucose 378 in ER. Was given 10 units insulin R in ER -Hold home metformin A1c 13 Pharmacy glycemic control consulted On Lantus and insulin sliding scale We will need to coordinate with case management regarding affordable insulin regimen for patient upon discharge (5) HTN (hypertension): BP: 156/89 in ER down to 146/80 -Hold lisinopril for now in light of pancreatitis of unknown etiology -Hydralazine prn HTN Blood pressure increased to systolic 180s today Start amlodipine 5 mg p.o. daily Monitor and titrate amlodipine accordingly (6) Tobacco use: -Denies nicotine patch -Smoking cessation encouraged (7) Depression: Not currently on medication DVT Prophylaxis -Lovenox SQ Full Code as per discussion with pt Follows with Dr Barton for routine care Will need to have regular follow-up as an outpatient with home health nurse and PCP Subjective 05/10 Patient was seen and examined in medical telemetry unit He has been complaining of pain with food most of the time He has pancreatitis and most likely that is turning into chronic stage Was advised to take small amount of food at one time to improve pain Narcotics have been discontinued for now Review of Systems Review of Systems: All systems reviewed and are unremarkable except as noted Gastrointestinal: + abdominal pain (After food); no bloating, no nausea and no vomiting Physical Exam Physical Exam: Lying in bed comfortably Constitutional: well developed, well nourished and + obese; no acute distress Eyes: PERRL, conjunctivae normal, anicteric sclerae ENMT: Mouth: + poor dentition; no TMJ abnormality Mallampati Class: II Neck: normal visual inspection, trachea midline, + short neck, + thick neck and + facial hair Respiratory: normal respiratory effort Auscultation: lungs clear to auscultation bilaterally Cardiovascular: Rate/Rhythm: regular rate and regular rhythm Gastrointestinal (Abdomen): Inspection/Auscultation: abdomen normal to inspection and normal bowel sounds; no abdominal edema Percussion/Palpation: abdomen soft; no guarding, no abdominal mass and no ascites Musculoskeletal: Spine: normal cervical ROM and no pain with cervical ROM Skin: no rashes, warm and dry Neurologic: PERRL, EOMI, accommodation nl, no face palsy, no dysarthria moves all extremities Psychiatric: Orientation: alert and oriented x 3 Mood: + irritable mood Lymphatic: no cervical or axillary lymphadenopathy Results & Data Vital Signs (Past 12 Hours) Vital Signs Temp Pulse Resp BP BP Pulse Ox 05/10/19 14:37 36.6 C 112 H 20 148/79 H 96 05/10/19 11:05 36.8 C 95 H 16 129/70 92 05/10/19 07:13 36.7 C 96 H 20 159/95 H 95 Laboratory Results Short CBC 05/10/19 Range/Units 07:39 WBC 6.15 (4.8-10.8) K/uL Hgb 15.2 (14.0-18.0) g/dL Hct 43.2 (42-52) % Plt Count 224 (130-400) K/uL BMP 05/10/19 07:39 Sodium 138 Potassium 3.4 L Chloride 99 Carbon Dioxide 28 BUN 6 L Creatinine 0.73 Glucose 105 H Calcium 8.8 Liver Function 05/10/19 Range/Units 07:39 Total Bilirubin 0.8 (0.2-1) mg/dl Direct Bilirubin 0.2 (0-0.2) mg/dl AST 47 H (15-37) U/L ALT 81 H (12-78) U/L Alkaline Phosphatase 71 (45-117) U/L Albumin 3.5 (3.4-5.0) gm/dl Medications Administered Current Inpatient Medications Dextrose (Dextrose 50%) 25 - 50 ml IV UD PRN; Protocol PRN Reason: Hypoglycemia Protocol Stop: 06/03/19 20:45 Dicyclomine HCl (Bentyl) 10 mg PO ACHS [facility] Stop: 06/08/19 16:29 Last Admin: 05/10/19 17:29 Dose: 10 mg Documented by: Enoxaparin Sodium (Lovenox) 40 mg SQ Q24H [facility] Stop: 06/03/19 20:59 Last Admin: 05/09/19 20:12 Dose: 40 mg Documented by: Glucagon (Glucagen) 1 mg SQ UD PRN; Protocol PRN Reason: Hypoglycemia Protocol Stop: 06/03/19 20:45 Glucose (Glucose 40%) 15 - 30 gm PO UD PRN; Protocol PRN Reason: Hypoglycemia Protocol Stop: 06/03/19 20:45 Glucose (Dex4 Glucose) 4 - 8 tabs PO UD PRN; Protocol PRN Reason: Hypoglycemia Protocol Stop: 06/03/19 20:45 Hydralazine HCl (Hydralazine Hcl) 10 mg IV Q6H PRN PRN Reason: Hypertension Stop: 06/03/19 20:45 Last Admin: 05/09/19 15:36 Dose: 10 mg Documented by: Hydromorphone HCl (Dilaudid) 0.5 mg IV Q4H PRN PRN Reason: Pain Stop: 05/18/19 20:45 Last Admin: 05/10/19 17:24 Dose: 0.5 mg Documented by: Insulin Aspart (Novolog Flexpen) 0 units SC [facility]; Protocol Stop: 06/07/19 20:59 Last Admin: 05/10/19 17:29 Dose: 6 units Documented by: Insulin Glargine (Lantus Solostar Pen) 0 units SC BID [facility]; Protocol Stop: 06/03/19 20:59 Last Admin: 05/10/19 08:33 Dose: 15 units Documented by: Ketorolac Tromethamine (Toradol) 15 mg IV Q6H PRN PRN Reason: Muscle Spasm Stop: 05/10/19 18:57 Last Admin: 05/10/19 06:17 Dose: 15 mg Documented by: Miscellaneous (Carbohydrates For Hypoglycemia) 15 - 30 gm PO UD PRN PRN Reason: Hypoglycemia Treatment Stop: 06/03/19 20:45 Miscellaneous Information (Consult Glycemic Management Pharmacy) 1 ea N/A UD PRN; Protocol PRN Reason: Consult Stop: 06/03/19 20:57 Ondansetron HCl (Zofran) 4 mg IV Q6H PRN PRN Reason: Nausea Stop: 06/03/19 20:45 Last Admin: 05/10/19 06:17 Dose: 4 mg Documented by: Pantoprazole Sodium (Protonix) 40 mg PO BID [facility] Stop: 06/05/19 09:14 Last Admin: 05/10/19 08:31 Dose: 40 mg Documented by: Sucralfate (Carafate) 1 gm PO QID [facility] Stop: 06/07/19 12:59 Last Admin: 05/10/19 17:28 Dose: 1 gm Documented by: Tramadol HCl (Ultram) 50 mg PO Q4H PRN PRN Reason: Pain Stop: 06/09/19 12:37 (1) Pancreatitis Acute pancreatitis complication: unspecified Chronicity: acute Pancreatitis type: unspecified pancreatitis type Qualified Code(s): K85.90 - Acute pancreatitis without necrosis or infection, unspecified
[2019-05-10] MEDS: ENOXAPARIN INJ 40 MG/0.4 ML SYR SQ SCH (21:16)
[2019-05-11] MEDS: HYDROmorphone INJ 0.5 MG/0.5 ML SYR IV PRN ×2 (02:02→10:01)
[2019-05-11] MEDS: SUCRALFATE 1 GM/10 ML UDC PO SCH ×3 (08:40→17:07)
[2019-05-11] MEDS: PANTOprazole 40 MG TAB PO SCH (08:40)
[2019-05-11] MEDS: DICYCLOMINE HCL 10 MG CAP PO SCH ×3 (08:40→17:07)
[2019-05-11] MEDS: INSULIN ASPART 100 UNITS/ML 3 ML PEN SC SCH ×3 (08:41→17:07)
[2019-05-11] MEDS: INSULIN GLARGINE SOLOSTAR 100 UNITS/ML 3 ML PEN SC SCH (08:44)
[2019-05-11] MEDS: ONDANSETRON INJ 2 MG/ML 2 ML VIAL IV PRN (08:45)
[2019-05-11 09:04] LABS: BUN Creatinine Ratio 9.3 (10-20); Creatinine Clr Calc Pharmacy 153.7 ml/min; Est GFR (African American) 122.6; Est GFR (Non-African American) 105.7; Magnesium 1.9 mg/dl (1.8-2.4); Phosphorus 3.4 mg/dl (2.5-4.9); Potassium 3.2 mmol/L (3.5-5.1)
[2019-05-11] MEDS ORDERED: POTASSIUM CHLORIDE 20 MEQ TABCR PO STA (11:10)
[2019-05-11] MEDS ORDERED: BISACODYL 10 MG SUPP PR STA (12:14)
--- NOTE | 2019-05-11 12:58 | Pharmacy Report ---
Pharmacy Glycemic Short Note 2 - Date of Service May 11, 2019 - Glycemic Short BSG Results (Last 24 hours): 05/10/19 05/10/19 05/11/19 16:45 20:16 07:31 Glucose POC Glucose 177 H 202 H 178 H 05/11/19 05/11/19 08:12 11:44 Glucose 166 H POC Glucose 196 H ASSESSMENT: * BSGs over the previous 24hrs: [phone]/dL * Pt has required ~65 units of insulin to achieve this level of control * AM fasting BSG slightly above goal range at 178 mg/dl --> most likely since reduced dose fo 15 units given yesterday morning. Current scale will adjust for this and give mor for hyperglycemia (25 units) * Post-prandial BSGs elevated yesterday, will tighten CR PLAN FOR INPATIENT GLYCEMIC CONTROL: * Hold outpatient oral diabetes medications * Basal insulin * Lantus scale SQ BID, BSGs <80 hold lantus, BSG 80-140 give 15 units, BSGs >140 give 20 units * Bolus insulin * NovoLog per scale Q6hrs while NPO * Goal Range: Low 110 mg/dL - High 140 mg/dL * Correction Factor: 20 mg/dL/unit * Nutritional / Prandial insulin per carb ratio of 1 unit per 5 grams CHO consumed Discharge Recs: * A1c = 13.4 % on 05/05/19 * Pt specific goal A1c is ~7% * A1c is greater than or equal to 10% consider metformin + combination injectable therapy (basal insulin + rapid acting insulin OR GLP1-RA) * Metformin, if not contraindicated and if tolerated, is the preferred initial pharmacological agent for type 2 diabetes. Metformin has a long-standing evidence base for efficacy and safety, is inexpensive, and may reduce risk of cardiovascular events. * B12 supplementation may be necessary with shelter metformin use * Pt is currently on Metformin 1,000mg PO BIDM as an outpatient which should be continued * Recommend: * Basal insulin: Lantus 20 units SQ BID (otherwise could do 40 units SQ daily to minimize injections) * Bolus insulin: NovoLog 12 units SQ three times daily with meals * Support Patient Self-Management * Healthy Lifestyle (diet, exercise, and smoking cessation) * Disease self-management (SMBG) * Prevention of complications (BP, Lipid goals, Immunizations) * Consider outpatient Diabetes Self-Management Education & Support
[2019-05-11] MEDS ORDERED: SOD PHOSPHATE/SOD BIPHOSPHATE ENEMA 132 ML BTL PR STA (13:40)
--- NOTE | 2019-05-11 15:45 | Hospitalist Progress Note ---
Date of Service May 11, 2019 Assessment & Plan (1) Pancreatitis: Pt presented with c/o N/V, abdominal pain x several days. multiple ER visits this week with negative CT ABD/PELVIS on 05/01/19 Was given IV fluid and kept n.p.o. initially Pancreatitis seems to be improving Still complains to have pain with food Drainage much better today We will continue with Ultram as an outpatient Gallbladder ultrasound: No sludge or lithiasis MRCP: unrevealing Lipase normalized Constipation Received suppository and Fleet Enema Bowel movement GI consulted ongoing epigastric pain EGD: Multiple gastritis, duodenitis Protonix 40 mg p.o. twice daily, sucralfate 1 g p.o. 4 times daily x4 weeks recommend Repeat upper endoscopy in 6 weeks for surveillance Continue to monitor Patient reports drinking alcohol very rarely, last drink 2 to 3 weeks ago No withdrawal symptoms (2) Chest pain: Informed by RN in the afternoon as patient was having left-sided chest pain Rule out ACS by serial troponins, EKG: negative Rule out PE by starting with d-dimer: negative Denies any more chest pain (3) Hyperglycemia: (4) Diabetes mellitus, type 2: A1c: 8.8 in 06/2018 Glucose 378 in ER. Was given 10 units insulin R in ER -Hold home metformin A1c 13 Pharmacy glycemic control consulted On Lantus and insulin sliding scale We will need to coordinate with case management regarding affordable insulin regimen for patient upon discharge (5) HTN (hypertension): BP: 156/89 in ER down to 146/80 -Hold lisinopril for now in light of pancreatitis of unknown etiology -Hydralazine prn HTN Blood pressure increased to systolic 180s today Start amlodipine 5 mg p.o. daily Monitor and titrate amlodipine accordingly (6) Tobacco use: -Denies nicotine patch -Smoking cessation encouraged (7) Depression: Not currently on medication DVT Prophylaxis -Lovenox SQ Full Code as per discussion with pt Follows with Dr Barton for routine care Will need to have regular follow-up as an outpatient with home health nurse and PCP Subjective 05/10 Patient was seen and examined in medical telemetry unit He has been complaining of pain with food most of the time He has pancreatitis and most likely that is turning into chronic stage Was advised to take small amount of food at one time to improve pain Narcotics have been discontinued for now Review of Systems Review of Systems: All systems reviewed and are unremarkable except as noted Gastrointestinal: + abdominal pain (After food); no bloating, no nausea and no vomiting Physical Exam Physical Exam: No apparent distress at rest Constitutional: well developed, well nourished and + obese; no acute distress Eyes: PERRL, conjunctivae normal, anicteric sclerae ENMT: Mouth: + poor dentition; no TMJ abnormality Mallampati Class: II Neck: normal visual inspection, trachea midline, + short neck, + thick neck and + facial hair Respiratory: normal respiratory effort Auscultation: lungs clear to auscultation bilaterally Cardiovascular: Rate/Rhythm: regular rate and regular rhythm Gastrointestinal (Abdomen): Inspection/Auscultation: abdomen normal to inspection and normal bowel sounds; no abdominal edema Percussion/Palpation: abdomen soft; no guarding, no abdominal mass and no ascites Musculoskeletal: Spine: normal cervical ROM and no pain with cervical ROM Skin: no rashes, warm and dry Neurologic: PERRL, EOMI, accommodation nl, no face palsy, no dysarthria moves all extremities Psychiatric: Orientation: alert and oriented x 3 Mood: + irritable mood Lymphatic: no cervical or axillary lymphadenopathy Results & Data Vital Signs (Past 12 Hours) Vital Signs Temp Pulse Resp BP BP Pulse Ox 05/11/19 14:54 36.8 C 93 H 18 147/84 H 95 05/11/19 13:45 36.6 C 90 20 121/69 162/84 H 96 05/11/19 07:15 36.6 C 90 20 162/84 H 96 05/11/19 04:53 36.5 C 86 20 121/69 95 Laboratory Results [facility] 05/11/19 08:12 Sodium 136 Potassium 3.2 L Chloride 100 Carbon Dioxide 26 BUN 8 Creatinine 0.84 Glucose 166 H Calcium 9.0 Medications Administered Current Inpatient Medications Dextrose (Dextrose 50%) 25 - 50 ml IV UD PRN; Protocol PRN Reason: Hypoglycemia Protocol Stop: 06/03/19 20:45 Dicyclomine HCl (Bentyl) 10 mg PO ACHS [facility] Stop: 06/08/19 16:29 Last Admin: 05/11/19 17:07 Dose: 10 mg Documented by: Enoxaparin Sodium (Lovenox) 40 mg SQ Q24H [facility] Stop: 06/03/19 20:59 Last Admin: 05/10/19 21:16 Dose: 40 mg Documented by: Glucagon (Glucagen) 1 mg SQ UD PRN; Protocol PRN Reason: Hypoglycemia Protocol Stop: 06/03/19 20:45 Glucose (Glucose 40%) 15 - 30 gm PO UD PRN; Protocol PRN Reason: Hypoglycemia Protocol Stop: 06/03/19 20:45 Glucose (Dex4 Glucose) 4 - 8 tabs PO UD PRN; Protocol PRN Reason: Hypoglycemia Protocol Stop: 06/03/19 20:45 Hydralazine HCl (Hydralazine Hcl) 10 mg IV Q6H PRN PRN Reason: Hypertension Stop: 06/03/19 20:45 Last Admin: 05/09/19 15:36 Dose: 10 mg Documented by: Hydromorphone HCl (Dilaudid) 0.5 mg IV Q4H PRN PRN Reason: Pain Stop: 05/18/19 20:45 Last Admin: 05/11/19 10:01 Dose: 0.5 mg Documented by: Insulin Aspart (Novolog Flexpen) 0 units SC [facility]; Protocol Stop: 06/07/19 20:59 Last Admin: 05/11/19 17:07 Dose: 11 units Documented by: Insulin Glargine (Lantus Solostar Pen) 0 units SC BID [facility]; Protocol Stop: 06/03/19 20:59 Last Admin: 05/11/19 08:44 Dose: 25 units Documented by: Miscellaneous (Carbohydrates For Hypoglycemia) 15 - 30 gm PO UD PRN PRN Reason: Hypoglycemia Treatment Stop: 06/03/19 20:45 Miscellaneous Information (Consult Glycemic Management Pharmacy) 1 ea N/A UD PRN; Protocol PRN Reason: Consult Stop: 06/03/19 20:57 Ondansetron HCl (Zofran) 4 mg IV Q6H PRN PRN Reason: Nausea Stop: 06/03/19 20:45 Last Admin: 05/11/19 08:45 Dose: 4 mg Documented by: Pantoprazole Sodium (Protonix) 40 mg PO BID [facility] Stop: 06/05/19 09:14 Last Admin: 05/11/19 08:40 Dose: 40 mg Documented by: Sucralfate (Carafate) 1 gm PO QID [facility] Stop: 06/07/19 12:59 Last Admin: 05/11/19 17:07 Dose: 1 gm Documented by: Tramadol HCl (Ultram) 50 mg PO Q4H PRN PRN Reason: Pain Stop: 06/09/19 12:37 Last Admin: 05/11/19 08:39 Dose: 50 mg Documented by: (1) Pancreatitis Acute pancreatitis complication: unspecified Chronicity: acute Pancreatitis type: unspecified pancreatitis type Qualified Code(s): K85.90 - Acute pancreatitis without necrosis or infection, unspecified
--- NOTE | 2019-05-12 08:35 | Discharge Summary ---
Date of Service May 12, 2019 Admission HPI Per Admitting Provider Pt is 43 y/o M with PMH DM II, depression, HTN, gastroparesis, tobacco use, h/o DVT and others below presented to ER with c/o abdominal pain. This is 3rd ER visit for abdominal pain this week. Reports mid abdominal pain with radiation to her back with associated nausea and vomiting. Patient reports 7 episodes of vomiting daily over the past several days. In ER on 05/01/[address] abdomen pelvis and normal lipase. Seen in ER on 05/03/2019 abdominal x-ray without signs of bowel obstruction, had lipase of 1000. Reported patient felt better after some fluids and antinausea medicine. Patient returns today with continued nausea, vomiting and abdominal pain. Patient states his been unable to eat today secondary to symptoms. Pt states restarted metformin a couple of weeks ago and since his been having loose stools. Pt reports did not want to start insulin. Pt was also restarted on lisinopril. Denies loose stool today. Denies known fever or chills. Reports alcohol use approximately twice a year and denies any in the last couple of months. Denies diaphoresis, MCCARTY, dizziness, syncope, vision changes, neck pain, CP, SOB, orthopnea, palpitations, cough, sore throat, choking, otalgia, rhinorrhea, hematemesis, melena, hematochezia, paresthesias, weakness, extremity weakness, extremity edema, rashes, urinary symptoms. Admission Exam Per Admitting Provider Physical Exam: General: no distress, obese Head: normocephalic, atraumatic Eyes: PERRL, EOM's intact, conjunctiva non-injected, anicteric ENT: normal inspection external ears, nose, mucous membranes moist Neck: supple, trachea midline, non-tender Lungs: clear, no respiratory distress, no wheezing/rhonchi/rales CV: RRR, no murmur, no JVD, no pretibial edema Abd: normal BS, protuberant, soft, +tenderness to entire abdomen, increased to epigastric region, no guarding or rebound Ext: no cyanosis, no calf tenderness Neuro: A&O x 3, no focal deficits noted, normal affect Skin: warm, dry Principal Diagnosis Acute pancreatitis, uncontrolled diabetes, hypertension Discharge Exam Constitutional well developed, well nourished and + obese; no acute distress Eyes PERRL, conjunctivae normal, anicteric sclerae ENMT Mouth: + poor dentition; no TMJ abnormality Mallampati Class: II Neck normal visual inspection, trachea midline, + short neck, + thick neck and + facial hair Respiratory normal respiratory effort Auscultation: lungs clear to auscultation bilaterally Cardiovascular Rate/Rhythm: regular rate and regular rhythm Gastrointestinal (Abdomen) Inspection/Auscultation: abdomen normal to inspection and normal bowel sounds; no abdominal edema Percussion/Palpation: abdomen soft; no guarding, no abdominal mass and no ascites Musculoskeletal Spine: normal cervical ROM and no pain with cervical ROM Skin no rashes, warm and dry Neurologic PERRL, EOMI, accommodation nl, no face palsy, no dysarthria moves all extremities Psychiatric Orientation: alert and oriented x 3 Mood: + irritable mood Lymphatic no cervical or axillary lymphadenopathy Discharge Data Allergies Allergy/AdvReac Type Severity Reaction Status Date / Time Cephalosporins Allergy Unknown Unknown Verified 05/08/19 10:57 NSAIDS (Non-Steroidal AdvReac Unknown gastroparesis, Verified 05/08/19 10:57 Anti-Inflamma kidney problems Consultations 05/04/19 16:23 ED Decision to Admit Stat 05/05/19 08:17 Consult Gastroenterology Routine Procedures Performed Operation Date: 05/08/19 08:30 Actual Procedures p EGD Biopsy Cytology - Belen Jones Ordered Studies 05/04/19 17:01 US gallbladder Urgent 05/05/19 13:58 MR MRCP Routine Hospital Course (1) Pancreatitis: Pt presented with c/o N/V, abdominal pain x several days. multiple ER visits this week with negative CT ABD/PELVIS on 05/01/19 Was given IV fluid and kept n.p.o. initially Pancreatitis seems to be improving Still complains to have pain with food Drainage much better today We will continue with Ultram as an outpatient Gallbladder ultrasound: No sludge or lithiasis MRCP: unrevealing Lipase normalized Constipation Received suppository and Fleet Enema Bowel movement GI consulted ongoing epigastric pain EGD: Multiple gastritis, duodenitis Protonix 40 mg p.o. twice daily, sucralfate 1 g p.o. 4 times daily x4 weeks recommend Repeat upper endoscopy in 6 weeks for surveillance Continue to monitor Patient reports drinking alcohol very rarely, last drink 2 to 3 weeks ago No withdrawal symptoms (2) Chest pain: Informed by RN in the afternoon as patient was having left-sided chest pain Rule out ACS by serial troponins, EKG: negative Rule out PE by starting with d-dimer: negative Denies any more chest pain (3) Hyperglycemia: (4) Diabetes mellitus, type 2: A1c: 8.8 in 06/2018 Glucose 378 in ER. Was given 10 units insulin R in ER -Hold home metformin A1c 13 Pharmacy glycemic control consulted On Lantus and insulin sliding scale We will need to coordinate with case management regarding affordable insulin regimen for patient upon discharge (5) HTN (hypertension): BP: 156/89 in ER down to 146/80 -Hold lisinopril for now in light of pancreatitis of unknown etiology -Hydralazine prn HTN Blood pressure increased to systolic 180s today Start amlodipine 5 mg p.o. daily Monitor and titrate amlodipine accordingly (6) Tobacco use: -Denies nicotine patch -Smoking cessation encouraged (7) Depression: Not currently on medication DVT Prophylaxis -Lovenox SQ Full Code as per discussion with pt Follows with Dr Barton for routine care Will need to have regular follow-up as an outpatient with home health nurse and PCP Total Time Total Time Spent Total Time Spent (In Minutes): 35 minutes Total Time Includes: Examination of the Patient, Discharge Planning, Medication Reconciliation and Communication With Other Providers Discharge Plan Discharge Items Patient Disposition: Home - Self-Care Reason For Visit: ABDOMINAL PAIN Discharge Diagnosis: Acute pancreatitis, uncontrolled diabetes, hypertension Condition: Good Discharge Goals: Decrease discomfort, Improve function and Increase independence Activity: Resume your previous activity Non-emergency contact: Primary Care Provider Call non-emergency contact if: you have any medication questions and your symptoms worsen Follow-up/Referrals: Nicko Barton MD [Primary Care Provider] - 05/15/19 12:45 pm (Will need regular follow-up with diabetes management team) Diet: Carb Consistent or DM2 and Heart Healthy Addtl Provider Instructions: Recommendations from glycemic pharmacist A1c = 13.4 % on 05/05/19 Pt specific goal A1c is ~7% A1c is greater than or equal to 10% consider metformin + combination injectable therapy (basal insulin + rapid acting insulin OR GLP1-RA) Metformin, if not contraindicated and if tolerated, is the preferred initial pharmacological agent for type 2 diabetes. Metformin has a long-standing evidence base for efficacy and safety, is inexpensive, and may reduce risk of cardiovascular events. B12 supplementation may be necessary with termite treater metformin use Pt is currently on Metformin 1,000mg PO BIDM as an outpatient which should be continued Recommend: Basal insulin: Lantus 20 units SQ BID (otherwise could do 40 units SQ daily to minimize injections) Bolus insulin: NovoLog 12 units SQ three times daily with meals Support Patient Self-Management Healthy Lifestyle (diet, exercise, and smoking cessation) Disease self-management (SMBG) Prevention of complications (BP, Lipid goals, Immunizations) Consider outpatient Diabetes Self-Management Education & Support Prescriptions: New tramadol 50 mg Tablet 50 mg PO Q4H PRN (Reason: pain) 5 Days Qty: 20 RF: 0 pantoprazole 40 mg Tablet,Delayed Release (Dr/Ec) 40 mg PO BID 30 Days Qty: 60 RF: 0 dicyclomine 10 mg Capsule 10 mg PO ACHS 10 Days Qty: 30 RF: 0 Novolog Flexpen U-100 Insulin 100 unit/mL (3 mL) Insulin Pen 12 unit SC TIDM 10 Days Qty: 1 RF: 0 Lantus Solostar U-100 Insulin 100 unit/mL (3 mL) Insulin Pen 20 unit SC BID 10 Days Qty: 1 RF: 0 Continued metformin 1,000 mg Tablet 1,000 mg PO BID RF: 0 lisinopril 10 mg Tablet 10 mg PO DAILY RF: 0 sildenafil (antihypertensive) 20 mg Tablet 20 mg PO DIRECTED PRN (Reason: Erectile Dysfunction) RF: 0 Discontinued metoclopramide HCl [Reglan] 10 mg tablet 10 mg PO Q6H PRN (Reason: Nausea And Vomiting) RF: 0 Stand-Alone Forms: [facility] TEAM [facility] Timely, Work/School Release (Inpt) Kracarl/Other Patient Handouts: Diabetes Nursing Home Complications, Hyperglycemia, Hypoglycemia, Diabetes Resources, Diabetes Type 2 Coping, Diabetes Type 2 Oral Meds, Diabetes Healthy Meals, Diabetes Carbs, Diabetes Exercise Benefits, Diabetes Exercise Get Started, Diabetes Activity Tips Discharge Orders: Discharge Order (Routine); Ordered 05/11/19 Ordered By: Madeline Rodriguez Admission Data Admit Date/Time: 05/04/19 17:01 Attending Provider: Madeline Rodriguez Admit Provider: Madeline Rodriguez Primary Care Provider: Nicko Barton Other Providers: Madeline Rodriguez ; Janak Aldrich ; Chacorta Kendall Service: Telemetry Medical Other Interventions: Discharge Summary Assessment (RN) Last Done: 05/11/19 16:19 DC Date/Time DO NOT enter until pt leaves facility: 05/11/19 20:29
== END 2019-05-11 20:29 | disposition home or self-care (01) | DRG 439 ==
LOC: ED 14:57 → 2W 17:01 → SUATTDRO 17:01 → 2W 20:24

== ENCOUNTER 2019-09-07 09:31 | Inpatient (IN) ==
[2019-09-07] MEDS ORDERED: MAGNESIUM SULFATE / D5W 1 GM/100 ML BAG IV ONE (10:01)
[2019-09-07] MEDS ORDERED: ONDANSETRON INJ 2 MG/ML 2 ML VIAL IV STA ×2 (10:01→12:40)
--- NOTE | 2019-09-07 10:04 | Emergency Department Note ---
History of Present Illness General Chief complaint: Abdominal Pain Stated complaint: SEVERE ABDOMINAL/LOWER BACK PAIN,VOMITING Time Seen by Provider: 09/07/19 09:47 History of Present Illness Maximum Pain Intensity: 8 This is a 43-year-old male that presents to the emergency department via private vehicle with complaints of "severe abdominal pain/lower back pain, vomiting". The patient states that he has been seen here recently for similar symptoms. He states that he has been experiencing since this past Wednesday abdominal discomfort as well as vomiting. He states that this began shortly after 5 PM this past Wednesday after he ate [employer]. He states that he has been trying an ti-medic such as Reglan and he believes also Zofran without relief. He has associated diarrhea as well. He states that again today the symptoms worsened therefore prompting his arrival. He rates his pain as an 8/10. No fevers or chills. Home Medications Home Medications Medication Instructions Recorded Confirmed Type lisinopril [Zestril] 10 mg PO QAM 05/01/19 09/07/19 History Basaglar KwikPen U-100 Insulin 20 unit SUBCUT BID 06/09/19 09/07/19 History Novolog Flexpen U-100 Insulin 12 unit SUBCUT TIDM 06/09/19 09/07/19 History Ozempic 0.5 mg SUBCUT WE 06/09/19 09/07/19 History pantoprazole [Protonix] 40 mg PO BID 07/06/19 09/07/19 History acetaminophen [Tylenol Arthritis 1,300 mg PO Q12H 08/05/19 09/07/19 History Pain] sildenafil [Viagra] 50 mg PO DAILY PRN 08/05/19 09/07/19 History diclofenac sodium 1 % TOPICAL DIRECTED PRN 08/31/19 09/07/19 History dicyclomine 20 mg PO QID PRN #20 tab 09/04/19 09/07/19 Rx famotidine 20 mg PO BID #20 tab 09/04/19 09/07/19 Rx magnesium oxide 400 mg PO BID #6 cap 09/04/19 09/07/19 Rx metformin 1,000 mg PO BID 09/04/19 09/07/19 History prochlorperazine maleate 10 mg PO QID PRN #14 tab 09/04/19 09/07/19 Rx [Compazine] metoclopramide HCl [Reglan] 10 mg PO TID 09/07/19 09/07/19 History Allergies Allergy/AdvReac Type Severity Reaction Status Date / Time Cephalosporins Allergy Unknown Unknown Verified 09/07/19 12:59 NSAIDS (Non-Steroidal AdvReac Intermediate gastroparesis, Verified 09/07/19 12:59 Anti-Inflamma kidney problems Past Med/Surg History Medical History Cardiac murmur A CHILD Deep vein thrombosis 5 YEARS AGO (? REASON/WAS ON ANTICOAGS FOR A SHORT TIME) Depression (Chronic) Diabetes mellitus with neurological manifestation (Chronic) "Diabetic neuropathy reported in hands and feet" Diabetes mellitus, type 2 (Chronic) Gastroparesis (Chronic) GERD (gastroesophageal reflux disease) Hx of pancreatitis Hypertension (Chronic) IBS (irritable bowel syndrome) (Chronic) MRSA (methicillin resistant Staphylococcus aureus) carrier Nicotine dependence (Chronic) Osteoarthritis Peripheral neuropathy Surgical History H/O foot surgery LEFT History of arthroscopy LEFT KNEE History of colonoscopy History of esophagogastroduodenoscopy (EGD) History of tonsillectomy and adenoidectomy History of tooth extraction Family History Brother Family history of diabetes mellitus Mother Family history of diabetes mellitus Father Family history of diabetes mellitus Social History Preferred Language: Iraqi Communication Ability: Effective Inspector Hot Forgings Required: No Beliefs That Will Affect Care: None Current Living Situation: Family Other Information That Helps Us Care for You: No Feels Safe at Home: Yes Safety Concerns: Feels Safe At This Time Smoking Status: Current every day smoker Tobacco Type: cigarettes ; Cigarettes Per Day: 30 ; Do You Dip or Chew Tobacco: No ; Second Hand Exposure: No ; Tobacco Cessation Education Requested by Patient: No Hx Alcohol Use: Yes Alcohol type: beer and hard liquor Hx Substance Use: No Review of Systems A total of 10 systems reviewed and were otherwise negative Physical Exam Vital Signs Vital Signs - 24 hr 09/07/19 09:43 09/07/19 11:31 09/07/19 13:00 Temperature 36.8 C Temperature Source Oral Pulse Rate 128 H Pulse Rate [Finger] 115 H 116 H Pulse Rhythm [Finger] Regular Pulse Strength [Finger] Normal Respiratory Rate 22 20 18 Respiratory Effort / Characteristics Non-Labored Spontaneous Non-Labored Spontaneous Respiratory Depth Normal Normal Respiratory Pattern Regular Regular Blood Pressure 166/82 H Blood Pressure [Right Arm] 195/110 H 180/112 H Blood Pressure Mean 110 Blood Pressure Mean [Right Arm] 138 134 Blood Pressure Position [Right Arm] Lying Lying Pulse Oximetry 98 94 97 Oxygen Delivery Method Room Air Room Air Room Air Sepsis Recent Fever Within 48 Hours No Sepsis New/Unexplained Change in Mental Status No Sepsis Action Taken by Nursing No Action Required VITAL SIGNS - Vital signs and nursing notes were reviewed. Stable and afebrile. Tachycardia noted in the 120s. GENERAL - 43-year-old male appearing his stated age who is in no acute distress but appears to be in pain, is tachycardic. Communicates well with provider and answers questions appropriately. SKIN - Without rashes. HEAD - NC/AT. EYES - Sclera anicteric. EARS - No deformities of external structures noted on gross examination bilaterally. NOSE - Midline and without cyanosis. No epistaxis or purulent drainage noted. MOUTH/OROPHARYNX - Without perioral cyanosis. NECK - Neck with FROM. No nuchal rigidity. LUNGS - Chest wall symmetric without accessory muscle use, intercostals retractions, or central cyanosis. Normal vesicular breath sounds CTA B/L. No wheezes, rales, or rhonchi appreciated. CARDIAC - RRR with S1/S2. No murmur, rubs, or gallops appreciated. ABDOMEN - Abdominal contour normal without pulsations or visible masses. BS normoactive all four quadrants. Patient was exquisitely tender in the upper abdomen to palpation. No palpable masses, hepatosplenomegaly, or ascites noted. EXTREMITIES - No clubbing or peripheral cyanosis. +5/5 strength noted in UE/LE bilaterally. NEUROLOGIC - Cranial nerves II through XII grossly intact. PSYCH - A&O, and cooperates fully with examiner. Pt is very pleasant and i nteracts well with examiner. Course Administered Medications Ioversol (Optiray 320 100ml) 89 ml IV ONCE PRN PRN Reason: Interaction Checking Stop: 09/11/19 11:47 Last Admin: 09/07/19 11:49 Dose: 89 ml Documented by: [id number] Miscellaneous (Order Awaiting Action) 1 ea N/A QS SOPHIA Stop: 10/07/19 15:59 Last Admin: 09/07/19 15:12 Dose: Not Given Documented by: [id number] Discontinued Medications Capsaicin (Zostrix) 1 appln EXT NOW STA Stop: 09/07/19 12:13 Last Admin: 09/07/19 14:58 Dose: Not Given Documented by: [id number] Diphenhydramine HCl (Benadryl) 50 mg IV NOW STA Stop: 09/07/19 10:11 Last Admin: 09/07/19 10:35 Dose: 50 mg Documented by: [id number] Sodium Chloride (Nss 1000ml) 1,000 mls @ 999 mls/hr IV .Q1H1M SOPHIA Stop: 09/07/19 11:15 Last Infusion: 09/07/19 11:37 Dose: 0 mls/hr Documented by: [id number] Admin: 09/07/19 10:24 Dose: 999 mls/hr Documented by: [id number] Magnesium Sulfate/Dextrose (Magnesium Sulfate / D5w) 1 gm in 100 mls @ 100 mls/hr IV ONE ONE Stop: 09/07/19 11:00 Last Infusion: 09/07/19 11:37 Dose: 0 mls/hr Documented by: [id number] Admin: 09/07/19 10:24 Dose: 100 mls/hr Documented by: [id number] Acetaminophen (Ofirmev) 1,000 mg in 100 mls @ 400 mls/hr IV NOW STA Stop: 09/07/19 10:24 Last Infusion: 09/07/19 11:00 Dose: 0 mls/hr Documented by: [id number] Admin: 09/07/19 10:35 Dose: 400 mls/hr Documented by: [id number] Prochlorperazine (Compazine) 1 mls @ 1 mls/min IV ONE ONE Stop: 09/07/19 10:15 Last Admin: 09/07/19 10:35 Dose: 1 mls/min Documented by: [id number] Ondansetron HCl (Zofran) 4 mg IV NOW STA Stop: 09/07/19 10:02 Last Admin: 09/07/19 10:24 Dose: 4 mg Documented by: [id number] Ondansetron HCl (Zofran) 4 mg IV NOW STA Stop: 09/07/19 12:41 Last Admin: 09/07/19 13:06 Dose: 4 mg Documented by: [id number] Medical Decision Making Laboratory Data Result diagrams: 09/07/19 10:44 09/07/19 10:44 Lab Results 09/07/19 09/07/19 09/07/19 Range/Units 10:44 10:44 10:44 WBC 7.15 (4.8-10.8) K/uL RBC 4.73 (4.7-6.1) M/uL Hgb 14.1 (14.0-18.0) g/dL Hct 40.2 L (42-52) % MCV 85.0 (80-100) fL MCH 29.8 (25-34) pg MCHC 35.1 (32-36) g/dL RDW Std Deviation 39.3 (36.4-46.3) fL RDW Coeff of Abiodun 12.7 (11.5-14.5) % Plt Count 253 (130-400) K/uL MPV 8.7 (7.4-10.4) fL Immature Gran % (Auto) 0.6 % Neut % (Auto) 69.5 % Lymph % (Auto) 21.7 % Talbot % (Auto) 7.1 % Eos % (Auto) 0.7 % Baso % (Auto) 0.4 % Immature Gran # (Auto) 0.04 H (0.00-0.02) K/uL Neut # (Auto) 4.97 (1.4-6.5) K/uL Lymph # (Auto) 1.55 (1.2-3.4) K/uL Talbot # (Auto) 0.51 (0.11-0.59) K/uL Eos # (Auto) 0.05 (0-0.5) K/uL Baso # (Auto) 0.03 (0-0.2) K/uL Sodium 136 (136-145) mmol/L Potassium 3.4 L (3.5-5.1) mmol/L Chloride 102 (98-107) mmol/L Carbon Dioxide 27 (21-32) mmol/L Anion Gap 7.0 (3-11) BUN 16 (7-18) mg/dl Creatinine 0.95 (0.6-1.4) mg/dl Est Cr Clr Drug Dosing 136.5 ml/min Est GFR ( Amer) 111.6 Est GFR (Non-Af Amer) 96.3 BUN/Creatinine Ratio 16.4 (10-20) Glucose 106 H (70-99) mg/dl Lactate 1.7 (0.4-2.0) mmol/L Calcium 9.3 (8.5-10.1) mg/dl Magnesium 1.8 (1.8-2.4) mg/dl Total Bilirubin 0.9 (0.2-1) mg/dl AST 24 (15-37) U/L ALT 43 (12-78) U/L Alkaline Phosphatase 53 (45-117) U/L Total Protein 7.8 (6.4-8.2) gm/dl Albumin 4.0 (3.4-5.0) gm/dl Globulin 3.8 (2.5-4.0) gm/dl Albumin/Globulin Ratio 1.1 (0.9-2) Lipase 103 (73-393) U/L TSH 0.245 L (0.300-4.500) uIu/ml Free T4 1.50 (0.8-1.6) ng/dl MDM Narrative Patient was seen and evaluated as above in room a 4. Review was performed of nursing notes and vital signs. After obtaining a thorough history and physical examination the above work up was performed. Previous visits were reviewed. He presents to us today with upper abdominal discomfort, nausea and some diarrhea. He is tachycardic on arrival. IV access was established. He was given IV Compazine, Benadryl, fluids, Tylenol, Zofran. Zofran was then repeated with his persistent dry heaving/complaints of nausea. The Compazine can double also for the patient's discomfort. I do not believe that narcotic at this time are warranted. I do believe though that a CT scan was warranted of the abdomen and pelvis given the patient's presentation, and physical examination. This was essentially negative for any emergent process and was unchanged compared to previous. The patient was reevaluated and expressed continued discomfort, nausea and dry heaving. It was felt that given his recent visits for similar, and his persistence of symptoms that inpatient management may be warranted to further investigate the causes of his symptoms. Case was discussed with the hospitalist. Please refer to further documentation regarding his stay. The patient was educated upon management, educated upon todays findings/results, educated upon importance of follow up from today's visit, educated upon symptoms in which to return, had questions answered prior to discharge, verbalized understanding, and was discharged home in good condition. CBC reveals no leukocytosis or anemia. No emergent metabolic disturbance. Mild hypokalemia. There is a decrease in TSH with normal free T4. Case was discussed with the attending physician. Medication list reviewed. Blood pressure reviewed. This was elevated. He is being admitted for his presentation for further evaluation and management. In the evaluation and treatment of this patient, the following differential diagnoses were considered: ASC, [place], Pneumonia, GERD, Cholecystitis, Ascending Cholangitis, Cholydocholithiasis, Bowel Obstruction, PE, Amongst Others. Impression & Plan Nausea & vomiting, Abdominal pain, generalized Discharge Plan Visit Data *Final* Discharge Date/Time: 09/07/19 13:46 Chief Complaint: Abdominal Pain Stated Complaint: SEVERE ABDOMINAL/LOWER BACK PAIN,VOMITING ED Provider: Ozzy Quintanilla ED Midlevel Provider: Srinivas Menchaca Discharge Problem: Nausea & vomiting, Abdominal pain, generalized Patient Disposition: Admitted As Inpatient Discharge Instructions Interventions: ED Discharge Assessment Last Done: 09/07/19 13:46
[2019-09-07] MEDS ORDERED: ACETAMINOPHEN 1,000 MG/100 ML VIAL IV STA (10:10)
[2019-09-07] MEDS ORDERED: DiphenhydrAMINE HCL 50 MG/ML VIAL IV STA (10:10)
[2019-09-07] MEDS ORDERED: PROCHLORPERAZINE 1 ML IV ONE (10:14)
[2019-09-07] MEDS ORDERED: SODIUM CHLORIDE 0.9% 1000ML 1,000 ML IV SCH (10:15)
[2019-09-07 11:15] LABS: Basophils # (auto) 0.03 K/uL (0-0.2); Basophils % (auto) 0.4 %; Eosinophils # (auto) 0.05 K/uL (0-0.5); Eosinophils % (auto) 0.7 %; Hematocrit (blood only) 40.2 % (42-52); Hemoglobin 14.1 g/dL (14.0-18.0); Immature Granulocytes # (auto) 0.04 K/uL (0.00-0.02); Immature Granulocytes % (auto) 0.6 %; Lymphocytes # (auto) 1.55 K/uL (1.2-3.4); Lymphocytes % (auto) 21.7 %; Mean Corpuscular Hemoglobin 29.8 pg (25-34); Mean Corpuscular Hgb Conc 35.1 g/dL (32-36); Mean Platelet Volume 8.7 fL (7.4-10.4); Monocytes # (auto) 0.51 K/uL (0.11-0.59); Monocytes % (auto) 7.1 %; Neutrophils # (auto) 4.97 K/uL (1.4-6.5); Neutrophils % (auto) 69.5 %; Platelet Count 253 K/uL (130-400); RDW Coefficient of Variation 12.7 % (11.5-14.5); RDW Standard Deviation 39.3 fL (36.4-46.3); Red Blood Count 4.73 M/uL (4.7-6.1); White Blood Count 7.15 K/uL (4.8-10.8)
[2019-09-07 11:36] LABS: BUN Creatinine Ratio 16.4 (10-20); Calcium 9.3 mg/dl (8.5-10.1); Creatinine Clr Calc Pharmacy 136.5 ml/min; Est GFR (African American) 111.6; Est GFR (Non-African American) 96.3; Magnesium 1.8 mg/dl (1.8-2.4); Potassium 3.4 mmol/L (3.5-5.1)
[2019-09-07 11:47] LABS: Albumin Globulin Ratio 1.1 (0.9-2); Bilirubin,Total 0.9 mg/dl (0.2-1); Globulin 3.8 gm/dl (2.5-4.0); Thyroid Stimulating Hormone 0.245 uIu/ml (0.300-4.500); Total Protein 7.8 gm/dl (6.4-8.2)
[2019-09-07] MEDS ORDERED: IOVERSOL 100ml IV PRN (11:48)
[2019-09-07 12:00] LABS: T4 Free Thyroxine 1.5 ng/dl (0.8-1.6)
--- NOTE | 2019-09-07 12:04 | CT Scan Report ---
ABDOMEN AND PELVIS CT WITH IV CONTRAST CT DOSE: 1222.47 mGycm HISTORY: Generalized abdominal pain. Severe. TECHNIQUE: Multiaxial CT images of the abdomen and pelvis were performed following the use of intrave nous contrast. A dose lowering technique was utilized adhering to the principles of ALARA. COMPARISON STUDY: Abdomen and pelvis CT 06/15/2019. FINDINGS: Mild distal esophageal wall thickening, unchanged. The lung bases are clear. No pneumoperit oneum. No pneumatosis. No suspicious lytic or blastic osseous lesions. No hepatic or splenic masses. The gallbladder, adrenal glands, pancreas, and kidneys are unremarkable. No hydronephrosis. The bladd er is unremarkable. Normal caliber abdominal aorta. No retroperitoneal lymphadenopathy. No pelvic liliana e fluid. No bowel wall thickening or obstruction. Normal appendix. IMPRESSION: 1. No change in the mild distal esophageal wall thickening. 2. No bowel wall thickening or obstruction. 3. Normal appendix. Electronically signed by: Vijay Wadsworth M.D. 09/07/2019 12:03 PM
[2019-09-07] MEDS ORDERED: CAPSAICIN CR 0.075% 60 GM TUBE EXT STA (12:12)
[2019-09-07] MEDS ORDERED: PROCHLORPERAZINE MALEATE 10 MG TAB PO PRN (13:15)
--- NOTE | 2019-09-07 13:37 | History & Physical Report ---
Date of Service September 07, 2019 Assessment & Plan (1) Nausea & vomiting: Has been complaining of abdominal pain with nausea, vomiting and diarrhea since Wednesday last He has had these nausea vomiting before Has been improving with outpatient treatment of Reglan and antiemetics Likely has gastroenteritis and is complicated by history of gastroparesis CT scan of the abdomen and pelvis did show distal esophageal thickening Will give symptomatic medications and continue Reglan GI consulted Clears orally and n.p.o. after midnight (2) Abdominal pain: Abdominal pain secondary to gastroenteritis/continued vomiting due to gastroparesis Will not be given any narcotics (3) Diabetic gastroparesis: History of diabetic gastroparesis (4) Esophagitis: Noted to have distal esophageal all thickening on CAT scan in May and also today May need to have further evaluation by side splitter Continue PPI and H2 ryan (5) HTN (hypertension): Stable (6) Obstructive sleep apnea: No acute symptoms He can use his own CPAP if he has been using (7) Diabetes mellitus, type 2: We will continue his usual doses of insulin We will check hemoglobin A1c (8) Adjustment disorder with depressed mood: No acute depression and/or psychosis May need to have an psych evaluation while inpatient (9) Intellectual disability: No acute symptoms DVT prophylaxis Subcu heparin CODE STATUS Full History of Present Illness Chief Complaint: Abdominal pain with nausea, vomiting and diarrhea since Wednesday last Primary Care Provider: Nicko Barton MD He is a 43-year-old male with significant past medical history of type 2 diabetes on insulin with gastroparesis, adjustment disorder with depressed mood, hypertension, sleep apnea, esophagitis and intellectual disability has been complaining of abdominal pain associated with nausea, vomiting and diarrhea since Wednesday last. This is his third visit to the ER since Wednesday last and in between he was seen by his primary care physician and was given Reglan. His symptoms did not resolve and he is back in the ER with increasing abdominal pain nausea and vomiting as of this morning. He denies any fever and/or chills associated with it and he complains of diarrhea about 2 times per day. No history of coffee-ground vomiting or hematemesis and/or melena. Denies any chest pain, palpitation or shortness of breath. Denies any problem with urine. And does not have any headache, blurred vision, numbness and/or tingling in the extremities. He remains hemodynamically stable in the emergency room with symptoms of nausea and vomiting. A CAT scan of the abdomen and pelvis that was done on 10 June did show mild lower esophageal wall thickening and a CAT scan that was done today did show same appearance of the esophagus but no other significant findings. Given the ongoing symptoms of nausea, vomiting and diarrhea he was admitted to medical floor for continuation of care. A GI consultation will be taken. Allergies Allergy/AdvReac Type Severity Reaction Status Date / Time Cephalosporins Allergy Unknown Unknown Verified 09/07/19 12:59 NSAIDS (Non-Steroidal AdvReac Intermediate gastroparesis, Verified 09/07/19 12:59 Anti-Inflamma kidney problems Home Medications Home Medications Medication Instructions Recorded Confirmed Type lisinopril [Zestril] 10 mg PO QAM 05/01/19 09/07/19 History Basaglar KwikPen U-100 Insulin 20 unit SUBCUT BID 06/09/19 09/07/19 History Novolog Flexpen U-100 Insulin 12 unit SUBCUT TIDM 06/09/19 09/07/19 History Ozempic 0.5 mg SUBCUT WE 06/09/19 09/07/19 History pantoprazole [Protonix] 40 mg PO BID 07/06/19 09/07/19 History acetaminophen [Tylenol Arthritis 1,300 mg PO Q12H 08/05/19 09/07/19 History Pain] sildenafil [Viagra] 50 mg PO DAILY PRN 08/05/19 09/07/19 History diclofenac sodium 1 % TOPICAL DIRECTED PRN 08/31/19 09/07/19 History dicyclomine 20 mg PO QID PRN #20 tab 09/04/19 09/07/19 Rx famotidine 20 mg PO BID #20 tab 09/04/19 09/07/19 Rx magnesium oxide 400 mg PO BID #6 cap 09/04/19 09/07/19 Rx metformin 1,000 mg PO BID 09/04/19 09/07/19 History prochlorperazine maleate 10 mg PO QID PRN #14 tab 09/04/19 09/07/19 Rx [Compazine] metoclopramide HCl [Reglan] 10 mg PO TID 09/07/19 09/07/19 History Past Med/Surg History Social History Preferred Language: Portuguese Communication Ability: impediment Vice President [employer] 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: No Beliefs That Will Affect Care: None Current Living Situation: Parent and Family Feels Safe at Home: Yes Smoking Status: Current every day smoker Tobacco Type: cigarettes ; Cigarettes Per Day: 30-40 ; Second Hand Exposure: Yes ; Hx Alcohol Use: Yes Alcohol type: beer and hard liquor Hx Substance Use: No Review of Systems Review of Systems: All systems reviewed & are unremarkable except as noted in HPI & below Physical Exam Physical Exam: Lying in bed with mild distress secondary to abdominal pain Constitutional: well developed, well nourished, + acute distress (Due to abdominal discomfort), + ill appearing and + obese Eyes: PERRL, conjunctivae normal, anicteric sclerae ENMT: external ear and nose normal, oropharynx normal Neck: trachea midline, no thyromegaly Respiratory: normal respiratory effort; no respiratory distress Auscultation: lungs clear to auscultation bilaterally Cardiovascular: Rate/Rhythm: regular rate and regular rhythm Heart Sounds: no murmur Gastrointestinal (Abdomen): Inspection/Auscultation: abdomen normal to inspection and normal bowel sounds Percussion/Palpation: + abdomen tender (Mildly tender all over but mainly in the epigastrium without guarding and/or rigidity) Musculoskeletal: No acute arthritis in any joints Neurologic: Alert, awake and oriented x3 Psychiatric: Affect: + depressed affect and + anxious affect Insight: + limited insight Judgement: + limited judgement Lymphatic: no cervical or axillary lymphadenopathy Results & Data Vital Signs (Past 12 Hours) Vital Signs Temp Pulse Pulse Resp BP BP Pulse Ox 09/07/19 13:00 116 H 18 180/112 H 97 09/07/19 11:31 115 H 20 195/110 H 94 09/07/19 09:43 36.8 C 128 H 22 166/82 H 98 Laboratory Results Short CBC 09/07/19 Range/Units 10:44 WBC 7.15 (4.8-10.8) K/uL Hgb 14.1 (14.0-18.0) g/dL Hct 40.2 L (42-52) % Plt Count 253 (130-400) K/uL BMP 09/07/19 10:44 Sodium 136 Potassium 3.4 L Chloride 102 Carbon Dioxide 27 BUN 16 Creatinine 0.95 Glucose 106 H Calcium 9.3 Liver Function 09/07/19 Range/Units 10:44 Total Bilirubin 0.9 (0.2-1) mg/dl AST 24 (15-37) U/L ALT 43 (12-78) U/L Alkaline Phosphatase 53 (45-117) U/L Albumin 4.0 (3.4-5.0) gm/dl Medications Administered Current Inpatient Medications Heparin Sodium (Porcine) (Heparin Sodium (Porcine)) 5,000 units SQ Q12 [facility] Stop: 10/07/19 20:59 Ioversol (Optiray 320 100ml) 89 ml IV ONCE PRN PRN Reason: Interaction Checking Stop: 09/11/19 11:47 Last Admin: 09/07/19 11:49 Dose: 89 ml Documented by: Prochlorperazine (Compazine) 10 mg PO Q6H PRN PRN Reason: Nausea And Vomiting Stop: 10/07/19 13:14 Code Status & VTE Plan VTE Prophylaxis Plan VTE Prophylaxis will be ordered: Yes (1) Nausea & vomiting Vomiting Intractability: non-intractable Vomiting type: unspecified Qualified Code(s): R11.2 - Nausea with vomiting, unspecified
[2019-09-07] MEDS ORDERED: D5NSS + 20MEQ KCL 20 MEQ/1,000 ML BAG IV SCH (13:45)
[2019-09-07] MEDS ORDERED: NSS + 20MEQ KCL 20 MEQ/1,000 ML BAG IV SCH (13:45)
[2019-09-07] MEDS ORDERED: DICYCLOMINE HCL 20 MG TAB PO PRN (14:56)
[2019-09-07] MEDS: INSULIN ASPART 100 UNITS/ML 3 ML PEN SQ SCH (17:26)
[2019-09-07 18:06] LABS: Appearance Urine Clear (Clear); Bacteria Urine Automated Negative (Negative); Bilirubin Urine Negative (Negative); Blood Urine Trace (Negative); Color Urine Yellow; Epithelial Cell Urine Auto 0-5 /lpf (0-5); Glucose Urine UA 1+ (Negative); Leukocyte Esterase Urine Negative (Negative); Nitrite Urine Negative (Negative); Protein Urine 1+ (Negative); RBC Urine Automated 0-4 /hpf (0-4); Specific Gravity Urine 1.037 (1.000-1.030); Urobilinogen Urine Negative (Negative); WBC Urine Automated 0 /hpf (0-5)
[2019-09-07 18:26] LABS: Ketones Urine 3+ (Negative)
[2019-09-07] MEDS: HEPARIN SOD 5,000 UNIT/0.5 ML VIAL SQ SCH (21:48)
[2019-09-07] MEDS: INSULIN GLARGINE SOLOSTAR 100 UNITS/ML 3 ML PEN SQ SCH (21:48)
[2019-09-07] MEDS: PANTOprazole 40 MG TAB PO SCH (21:53)
[2019-09-07] MEDS: ACETAMINOPHEN 325 MG TAB PO SCH (21:53)
[2019-09-07] MEDS: MAGNESIUM OXIDE 400 MG TAB PO SCH (21:53)
[2019-09-07] MEDS: FAMOTIDINE 20 MG TAB PO SCH (21:53)
[2019-09-07] MEDS: METOCLOPRAMIDE HCL 10 MG TABLET PO SCH (21:53)
[2019-09-08] MEDS ORDERED: Nursing to Pharmacy Communication ONE (04:13)
[2019-09-08] MEDS ORDERED: DEXTROSE 50% 50 ML SYRINGE IV PRN (04:30)
[2019-09-08] MEDS ORDERED: GLUCAGON FOR INJ 1 MG VIAL IM PRN (04:30)
[2019-09-08] MEDS ORDERED: CARBOHYDRATES FOR HYPOGLYCEMIA PO PRN (04:30)
[2019-09-08] MEDS ORDERED: GLUCOSE 10 TABS/TUBE PO PRN (04:30)
[2019-09-08] MEDS ORDERED: GLUCOSE 40% GEL 15 GM TUBE PO PRN (04:30)
[2019-09-08] MEDS: INSULIN GLARGINE SOLOSTAR 100 UNITS/ML 3 ML PEN SQ SCH ×2 (07:44→20:49)
[2019-09-08] MEDS: METOCLOPRAMIDE HCL 10 MG TABLET PO SCH (07:44)
[2019-09-08] MEDS: MAGNESIUM OXIDE 400 MG TAB PO SCH ×2 (07:44→20:27)
[2019-09-08] MEDS: FAMOTIDINE 20 MG TAB PO SCH ×2 (07:44→20:27)
[2019-09-08] MEDS: ACETAMINOPHEN 325 MG TAB PO SCH ×2 (07:44→20:27)
[2019-09-08] MEDS: PANTOprazole 40 MG TAB PO SCH ×2 (07:44→20:27)
[2019-09-08] MEDS: HEPARIN SOD 5,000 UNIT/0.5 ML VIAL SQ SCH ×2 (07:45→20:50)
[2019-09-08] MEDS: INSULIN ASPART 100 UNITS/ML 3 ML PEN SQ SCH ×2 (07:45→13:05)
--- NOTE | 2019-09-08 08:59 | Gastrointestinal Consultation ---
Date of Consultation September 08, 2019 Assessment & Plan (1) Abdominal pain: 43 year old male with history of T2DM, depression, HTN, gastroparesis, DVT who presented to the ED w/ nausea/vomiting post-prandially admitted through the ED w/ normal CBC, CMP, lipase. CTAP w/ ?esophagitis but otherwise normal - No GI contraindication to trial of clear liquids - Will contact primary service to update - Consider dietary consultation for gastroparesis dietary teaching - Smaller, more frequent meals - Low residue diet - Continue PPI as ordered - Reglan 5 mg ACHS - Can use pepcid PRN - Bentyl PRN - Can check stool studies if diarrhea returns but patient notes no BM x 1 day Will sign off. Thank you for allowing us to participate in the care of this patient. Please call with any acute changes, questions or concerns. Please see addendum below with additional recommendation from my supervising physician. Present on Admission?: Yes Supervising Physician Co-Signing Physician Notes I saw and evaluated the patient. Patient has a history of diabetes and is undergone a number of upper endoscopies in the recent past. He is suspected to have underlying diabetic gastroparesis but has yet to complete a gastric emptying study even though they were previously ordered. Patient reports that his symptoms are somewhat improved today. Of note his symptoms have been worsening over the past few weeks after he was started on Ozempic. Physical examination No obvious distress No abdominal tenderness Impression: Patient with a history of diabetes and suspected gastroparesis. I would recommend advancing the patient to a low residue diet. The patient will be best served by seeing an outpatient process improvement manager for assistance with dietary changes. I would also highly recommend that he consider obtaining the gastric emptying study as previously ordered. It is possible that his symptoms are partially related to 1 of his medication such as Ozempic. I will defer to the internal medicine service would suggest that the medication be discontinued. History of Present Illness Reason for Consultation: abd pain, nausea, vomiing Requesting Physician: Ajith Attending Physician: Sunni Canseco, DO History of Present Illness 43 year old male with history of T2DM, depression, HTN, gastroparesis, DVT who was admitted through the ED foe evaluation of abdominal pain, nausea/vomiting - GI asked to evaluate. Pt was seen and evaluated, chart reviewed. Since EGD noted overall he was feeling well. Suggests that he was at a friends house over the weekened and ate three slices of pizza. After this, developed upper abdominal pain, nausea and vomiting. After he vomited he felt much better but notes persistent episdoes of emesis which had prompted ED eval x 3 w/ subsequent admission CTAP w/ distal esophageal wall thickening otherwise negative CBC, CMP, Lipse normal EGD 08/2019: - Normal esophagus. A large amount of food (residue) in the stomach.No specimens collected. Allergies Allergy/AdvReac Type Severity Reaction Status Date / Time Cephalosporins Allergy Unknown Unknown Verified 09/07/19 12:59 NSAIDS (Non-Steroidal AdvReac Intermediate gastroparesis, Verified 09/07/19 12:59 Anti-Inflamma kidney problems Home Medications Home Medications Medication Instructions Recorded Confirmed Type lisinopril [Zestril] 10 mg PO QAM 05/01/19 09/07/19 History Basaglar KwikPen U-100 Insulin 20 unit SUBCUT BID 06/09/19 09/07/19 History Novolog Flexpen U-100 Insulin 12 unit SUBCUT TIDM 06/09/19 09/07/19 History Ozempic 0.5 mg SUBCUT WE 06/09/19 09/07/19 History pantoprazole [Protonix] 40 mg PO BID 07/06/19 09/07/19 History acetaminophen [Tylenol Arthritis 1,300 mg PO Q12H 08/05/19 09/07/19 History Pain] sildenafil [Viagra] 50 mg PO DAILY PRN 08/05/19 09/07/19 History diclofenac sodium 1 % TOPICAL DIRECTED PRN 08/31/19 09/07/19 History dicyclomine 20 mg PO QID PRN #20 tab 09/04/19 09/07/19 Rx famotidine 20 mg PO BID #20 tab 09/04/19 09/07/19 Rx magnesium oxide 400 mg PO BID #6 cap 09/04/19 09/07/19 Rx metformin 1,000 mg PO BID 09/04/19 09/07/19 History prochlorperazine maleate 10 mg PO QID PRN #14 tab 09/04/19 09/07/19 Rx [Compazine] metoclopramide HCl [Reglan] 10 mg PO TID 09/07/19 09/07/19 History Patient History Medical History Cardiac murmur A CHILD Deep vein thrombosis 5 YEARS AGO (? REASON/WAS ON ANTICOAGS FOR A SHORT TIME) Depression (Chronic) Diabetes mellitus with neurological manifestation (Chronic) "Diabetic neuropathy reported in hands and feet" Diabetes mellitus, type 2 (Chronic) Gastroparesis (Chronic) GERD (gastroesophageal reflux disease) Hx of pancreatitis Hypertension (Chronic) IBS (irritable bowel syndrome) (Chronic) MRSA (methicillin resistant Staphylococcus aureus) carrier Nicotine dependence (Chronic) Osteoarthritis Peripheral neuropathy Surgical History H/O foot surgery LEFT History of arthroscopy LEFT KNEE History of colonoscopy History of esophagogastroduodenoscopy (EGD) History of tonsillectomy and adenoidectomy History of tooth extraction Family History Brother Family history of diabetes mellitus Mother Family history of diabetes mellitus Father Family history of diabetes mellitus Social History Preferred Language: Albanian Communication Ability: Effective Bicycle 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 Required: No Beliefs That Will Affect Care: None Current Living Situation: Family Other Information That Helps Us Care for You: No Feels Safe at Home: Yes Safety Concerns: Feels Safe At This Time Smoking Status: Current every day smoker Tobacco Type: cigarettes ; Cigarettes Per Day: 30 ; Do You Dip or Chew Tobacco: No ; Second Hand Exposure: No ; Tobacco Cessation Education Requested by Patient: No Hx Alcohol Use: Yes Alcohol type: beer and hard liquor Hx Substance Use: No Review of Systems Constitutional: no fever, no chills and no fatigue Respiratory: no cough and no dyspnea Cardiovascular: no chest pain, no dyspnea and no dyspnea on exertion Gastrointestinal: + bloating, + nausea and + diarrhea/loose stools; no abdominal pain, no coffee ground emesis, no hematemesis, no change in bowel habits, no blood in stools and no melena Physical Exam Constitutional: well developed and well nourished; no acute distress Neck: trachea midline Respiratory: normal respiratory effort; no respiratory distress Cardiovascular: Rate/Rhythm: regular rate and regular rhythm Gastrointestinal (Abdomen): normal bowel sounds, soft, nontender, no hepatosplenomegaly Skin: no rashes, warm and dry Results & Data Vital Signs (Past 12 Hours) Vital Signs Temp Pulse Resp BP Pulse Ox 09/08/19 07:09 37 C 105 H 18 109/67 90 09/07/19 23:27 36.8 C 103 H 21 110/69 96 (1) Abdominal pain Abdominal location: epigastric Qualified Code(s): R10.13 - Epigastric pain
[2019-09-08] MEDS ORDERED: LISINOPRIL 10 MG TAB PO SCH (09:00)
--- NOTE | 2019-09-08 11:57 | Hospitalist Progress Note ---
Date of Service September 08, 2019 Assessment & Plan (1) Nausea & vomiting: recent intractable n/v improved today. Possible esophagitis. Trial of clears per GI. Cont Famotidine and Protonix. Thickened esophagus seen on imaging, but had a recent EGD evaluation for this already. Has a h/o diabetic gastroparesis. Reports having a gastric emptying study to prove this a couple of years ago. Cont Reglan per GI and will obtain scanner supervisor consult to teach him how to eat small, frequent meals and improve his symptoms. (2) Abdominal pain: Abdominal pain secondary to gastroenteritis/continued vomiting due to gastroparesis Will not be given any narcotics (3) Diabetic gastroparesis: History of diabetic gastroparesis, Reglan recently initiated by PCP. Will decrease dose from 10 to 5 AC. Discussed this plan with the patient. Nutrition consult for gastroparesis teaching. (4) HTN (hypertension): Stable (5) Obstructive sleep apnea: chronic, cont home CPAP (6) Diabetes mellitus, type 2: glucose controlled. Cont home Lantus but will adjust down by 50% if continues to have poor PO intake. Also change scheduled Novolog to ISS with carb coverage to avoid hypoglycemia. (7) Adjustment disorder with depressed mood: chronic, stable. (8) DVT prophylaxis: heparin Full Code Dispo-to home when medically stable. Sunni Canseco DO [facility] Hospitalist Subjective nausea and vomiting has resolved diarrhea resolved and he reports chronic intermittent diarrhea at baseline reports diffuse abdominal pain poss 2/2 excessive vomiting has been vomiting since Sat (6 days) Thickening of EGD on scan and prior, but had no issues on recent EGD per GI provider. Reports severe lower back pain that is improved today. Review of Systems Review of Systems: All systems reviewed & are unremarkable except as noted in HPI & below Physical Exam Physical Exam: CONSTITUTIONAL: WNWD, vitals as above, generally well- appearing EYES: normal conjunctivae, no scleral icterus ENT: MMM RESPIRATORY: clear to auscultation bilaterally, no crackles, rales or wheezes, normal respiratory effort CARDIOVASCULAR: regular rate and rhythm, S1 and 2 heard without murmurs, gallops or rubs, no JVD, no peripheral edema GASTROINTESTINAL: normal bowel sounds, soft, nontender, nondistended MUSCULOSKELETAL: strength 5/5 throughout, head is normocephalic and atraumatic, neck supple, normal palpation of chest wall without tenderness SKIN: warm and dry NEUROLOGIC: CN 2-12 grossly intact, normal cognition, no gross focal abnormalities. PSYCHIATRIC: alert cooperative and oriented to person, place and time. Results & Data Vital Signs (Past 12 Hours) Vital Signs Temp Pulse Resp BP Pulse Ox 09/08/19 07:09 37 C 105 H 18 109/67 90 Laboratory Results Urine 09/07/19 Range/Units Unknown Urine Color Yellow Urine Appearance Clear (Clear) Urine pH 7.0 (4.5-7.5) Ur Specific [place] 1.037 H (1.000-1.030) Urine Protein 1+ H (Negative) Urine Glucose (UA) 1+ H (Negative) Medications Administered Current Inpatient Medications Acetaminophen (Tylenol) 1,300 mg PO Q12 [facility]IA Stop: 10/07/19 20:59 Last Admin: 09/08/19 07:44 Dose: 1,300 mg Documented by: Dextrose (Dextrose 50%) 25 - 50 ml IV UD PRN; Protocol PRN Reason: Hypoglycemia Protocol Stop: 10/08/19 04:29 Diclofenac Sodium (Voltaren 1% Top) 1 gm EXT QD PRN PRN Reason: Pain Stop: 10/07/19 14:55 Dicyclomine HCl (Bentyl) 20 mg PO QID PRN PRN Reason: abdominal pain Stop: 10/07/19 14:55 Famotidine (Pepcid) 20 mg PO BID SOPHIA Stop: 10/07/19 20:59 Last Admin: 09/08/19 07:44 Dose: 20 mg Documented by: Glucagon (Glucagen) 1 mg IM UD PRN; Protocol PRN Reason: Hypoglycemia Protocol Stop: 10/08/19 04:29 Glucose (Glucose 40%) 15 - 30 gm PO UD PRN; Protocol PRN Reason: Hypoglycemia Protocol Stop: 10/08/19 04:29 Glucose (Dex4 Glucose) 4 - 8 tabs PO UD PRN; Protocol PRN Reason: Hypoglycemia Protocol Stop: 10/08/19 04:29 Heparin Sodium (Porcine) (Heparin Sodium (Porcine)) 5,000 units SQ Q12 SOPHIA Stop: 10/07/19 20:59 Last Admin: 09/08/19 07:45 Dose: 5,000 units Documented by: Insulin Aspart (Novolog Flexpen) 12 units SQ TIDM SOP[facility]IA Stop: 10/07/19 16:59 Last Admin: 09/08/19 07:45 Dose: Not Given Documented by: Insulin Glargine (Lantus Solostar Pen) 20 units SQ BID [facility] Stop: 10/07/19 20:59 Last Admin: 09/08/19 07:44 Dose: Not Given Documented by: Ioversol (Optiray 320 100ml) 89 ml IV ONCE PRN PRN Reason: Interaction Checking Stop: 09/11/19 11:47 Last Admin: 09/07/19 11:49 Dose: 89 ml Documented by: Lisinopril (Zestril) 10 mg PO QAM [facility] Stop: 10/08/19 08:59 Last Admin: 09/08/19 07:44 Dose: 10 mg Documented by: Magnesium Oxide (Mag-Ox) 400 mg PO BID [facility] Stop: 10/07/19 20:59 Last Admin: 09/08/19 07:44 Dose: 400 mg Documented by: Metoclopramide HCl (Reglan) 5 mg PO AC [facility] Stop: 10/08/19 16:29 Miscellaneous (Order Awaiting Action) 1 ea N/A QS [facility] Stop: 10/07/19 15:59 Last Admin: 09/08/19 07:11 Dose: Not Given Documented by: Miscellaneous (Carbohydrates For Hypoglycemia) 15 - 30 gm PO UD PRN PRN Reason: Hypoglycemia Treatment Stop: 10/08/19 04:29 Pantoprazole Sodium (Protonix) 40 mg PO BID [facility] Stop: 10/07/19 20:59 Last Admin: 09/08/19 07:44 Dose: 40 mg Documented by: Prochlorperazine (Compazine) 10 mg PO Q6H PRN PRN Reason: Nausea And Vomiting Stop: 10/07/19 13:14 (1) Nausea & vomiting Vomiting Intractability: non-intractable Vomiting type: unspecified Qualified Code(s): R11.2 - Nausea with vomiting, unspecified
[2019-09-08] MEDS: METOCLOPRAMIDE HCL 5 MG TABLET PO SCH (16:24)
[2019-09-08] MEDS ORDERED: TRAMADOL HCL 50 MG TABLET PO ONE (17:00)
[2019-09-08] MEDS: INSULIN HUMAN REGULAR SC SCH ×2 (17:43→20:49)
[2019-09-08] MEDS ORDERED: NITROGLYCERIN SL 0.4 MG/TAB TAB SL STA (20:36)
[2019-09-08] MEDS ORDERED: TRAMADOL HCL 50 MG TABLET PO STA (21:26)
[2019-09-08 21:33] LABS: Partial Thromboplastin Time 25.8 Seconds (21.0-31.0)
[2019-09-08] MEDS: DICLOFENAC SOD 1% GEL 100 GM TUBE EXT PRN ×2 (21:36→23:40)
[2019-09-08] MEDS ORDERED: OPTIRAY 320 125ml IV PRN (22:54)
[2019-09-08] MEDS ORDERED: POTASSIUM CHLORIDE 40 MEQ in SODIUM CHLORIDE 0.9% 1000ML 1,000 ML IV ONE (23:00)
--- NOTE | 2019-09-08 23:04 | CT Scan Report ---
CT ANGIOGRAM OF THE CHEST CLINICAL HISTORY: Dyspnea. COMPARISON STUDY: Chest x-ray dated 09/04/2019. Chest CT scans dated 10/27/2017 and 10/16/2017. TECHNIQUE: Following the IV administration of 109 cc of Optiray 320, CT angiogram of the chest was pe rformed from the upper abdomen to the thoracic inlet utilizing the pulmonary embolus protocol. Images are reviewed in the axial, sagittal, and coronal planes. 3-D MIPS images are created and assessed. I V contrast was administered without complication. A dose lowering technique was utilized adhering to the principles of ALARA. CT DOSE: 852.82 mGy.cm FINDINGS: Thyroid: Imaged portions of the thyroid gland are normal in size and attenuation. Thoracic aorta: The thoracic aorta is normal in caliber and demonstrates standard 3-vessel arch anato my. No dissection is seen. Pulmonary vasculature: The pulmonary trunk is normal in caliber. There are no filling defects identif ied in main, lobar, or segmental pulmonary branches to suggest pulmonary embolus. Heart: The heart is normal in size noting trace pericardial fluid. There are scattered coronary arter y calcifications. Lungs and pleural spaces: There is no airspace consolidation or pleural effusion. Scattered calcified granulomas are observed. The trachea and central airways are clear. Mild peribronchial thickening is noted. Mediastinum: There is no mediastinal lymphadenopathy. Daysi: Clear. Axillae: There is no axillary lymphadenopathy. Upper abdomen: There is a small hiatal hernia. The liver is steatotic. Mild distal esophageal wall th ickening is similar to previous. Skeletal structures: No lytic or blastic bony lesions are seen. IMPRESSION: 1. There is no evidence of pulmonary embolus in the main, lobar, or segmental pulmonary arteries. 2. There is no airspace consolidation or pleural effusion. 3. Mild diffuse peribronchial thickening suggests bronchitis/reactive airway disease. Clinical correl ation will be required. 4. Hepatic steatosis. 5. Esophageal wall thickening is similar to previous. Correlate clinically for evidence of esophagiti s. This could be further assessed with endoscopy if clinically warranted. Electronically signed by: Jaydon Wallace M.D. 09/08/2019 11:02 PM
[2019-09-09] MEDS ORDERED: XOPENEX/ATROVENT 1.25mg/0.5MG NEB COMBO NEB PRN (00:05)
[2019-09-09] MEDS ORDERED: IPRATROPIUM BROMIDE NEB SOLN 0.02% 2.5 ML VIAL INH PRN (00:15)
[2019-09-09] MEDS ORDERED: LEVALBUTEROL 1.25MG/0.5ML NEB INH PRN (00:15)
[2019-09-09] MEDS: PROMETHAZINE HCL 12.5 MG in SODIUM CHLORIDE 0.9% 50 ML IV PRN ×2 (01:59→02:24)
[2019-09-09] MEDS ORDERED: LISINOPRIL 10 MG TAB PO SCH (06:15)
[2019-09-09 07:13] LABS: BUN Creatinine Ratio 14.5 (10-20); Calcium 8.8 mg/dl (8.5-10.1); Creatinine Clr Calc Pharmacy 156.3 ml/min; Est GFR (African American) 123.2; Est GFR (Non-African American) 106.3; Magnesium 1.9 mg/dl (1.8-2.4); Potassium 3.6 mmol/L (3.5-5.1)
[2019-09-09 07:50] LABS: Estimated Average Glucose 143 mg/dl; Hemoglobin A1C 6.6 % (4.5-5.6)
[2019-09-09] MEDS: FAMOTIDINE 20 MG TAB PO SCH ×2 (08:46→19:49)
[2019-09-09] MEDS: ACETAMINOPHEN 325 MG TAB PO SCH ×2 (08:46→19:49)
[2019-09-09] MEDS: MAGNESIUM OXIDE 400 MG TAB PO SCH ×2 (08:46→19:50)
[2019-09-09] MEDS: PANTOprazole 40 MG TAB PO SCH ×2 (08:46→19:49)
[2019-09-09] MEDS: HEPARIN SOD 5,000 UNIT/0.5 ML VIAL SQ SCH ×2 (08:47→22:21)
[2019-09-09] MEDS: INSULIN GLARGINE SOLOSTAR 100 UNITS/ML 3 ML PEN SQ SCH ×2 (08:47→22:36)
[2019-09-09] MEDS: METOCLOPRAMIDE HCL 5 MG TABLET PO SCH ×3 (08:47→17:12)
[2019-09-09] MEDS: INSULIN HUMAN REGULAR SC SCH ×4 (08:48→20:24)
[2019-09-09] MEDS ORDERED: LISINOPRIL 10 MG TAB PO ONE (12:41)
--- NOTE | 2019-09-09 18:26 | Hospitalist Progress Note ---
Date of Service September 09, 2019 Assessment & Plan (1) Nausea & vomiting: Tolerated some food overnight however, had persistent nausea vomiting throughout the evening and overnight. Possible esophagitis versus gastroparesis with heavy bolus load. Continued to encourage him to reduce his portion size. Continue to give Reglan with meals at 5 mg dose. Continue famotidine and Protonix. Thickened esophagus that was seen on imaging is not requiring further work-up per GI as EGD was unremarkable after this was seen. Continue diabetic gastroparesis precautions. (2) Abdominal pain: Abdominal pain secondary to gastroenteritis/continued vomiting due to gastroparesis Will not be given any narcotics. No abdominal pain reported this morning and abdominal exam was normal. Continue plan as above. (3) Diabetic gastroparesis: History of diabetic gastroparesis, Reglan recently initiated by PCP. Dose decreased from 10 to 5 AC and patient is doing well. Appreciate diabetic nursing education. (4) HTN (hypertension): Uncontrolled. Increase lisinopril from 10 mg to 20 mg daily and repeat BMP in 2 weeks time. Close outpatient follow-up with blood pressure check is recommended. (5) Obstructive sleep apnea: chronic, cont home CPAP (6) Diabetes mellitus, type 2: glucose controlled. Continue Lantus and regular insulin for correction factor and carb coverage. Hold metformin while admitted. A1c reflects control as outpatient and he was congratulated for this effort. (7) Adjustment disorder with depressed mood: chronic, stable. (8) DVT prophylaxis: heparin Full Code Dispo-to home when medically stable. Sunni Canseco DO [facility] Hospitalist Subjective Patient reports tolerating dinner last night consisting of pot roast boiled vegetables and mashed potatoes. However, after 3 hours he then had an excellent sandwich and proceeded to vomit all night. He is more rested after getting some sleep this morning however blood pressure is up. He did tolerate clear liquid tray for lunch and is requesting regular food at this point. Denies abdominal pain or back pain at this time however this is been intermittent throughout the hospitalization. Otherwise has no other symptoms. We discussed his A1c level which is controlled at 6.6. He was congratulated on this effort. Review of Systems Review of Systems: All systems reviewed & are unremarkable except as noted in HPI & below Physical Exam Physical Exam: CONSTITUTIONAL: WNWD, vitals as above, generally well- appearing EYES: normal conjunctivae, no scleral icterus ENT: MMM RESPIRATORY: clear to auscultation bilaterally, no crackles, rales or wheezes, normal respiratory effort CARDIOVASCULAR: regular rate and rhythm, S1 and 2 heard without murmurs, gallops or rubs, no JVD, no peripheral edema GASTROINTESTINAL: normal bowel sounds, soft, nontender, nondistended MUSCULOSKELETAL: strength 5/5 throughout, head is normocephalic and atraumatic, neck supple, normal palpation of chest wall without tenderness SKIN: warm and dry NEUROLOGIC: CN 2-12 grossly intact, normal cognition, no gross focal abnormalities. PSYCHIATRIC: alert cooperative and oriented to person, place and time. Results & Data Vital Signs (Past 12 Hours) Vital Signs Temp Pulse Resp BP BP Pulse Ox 09/09/19 17:21 98 H 144/91 H 09/09/19 14:43 36.8 C 102 H 20 124/77 93 09/09/19 12:08 106 H 163/107 H 09/09/19 07:30 37.0 C 106 H 20 170/97 H 178/[address] [facility] 09/09/19 06:17 Sodium 135 L Potassium 3.6 Chloride 101 Carbon Dioxide 25 BUN 12 Creatinine 0.83 Glucose 94 Calcium 8.8 Cardiac Enzymes 09/08/19 Range/Units 21:09 Troponin I < 0.015 (0-0.045) ng/ml (1) Nausea & vomiting Vomiting Intractability: non-intractable Vomiting type: unspecified Qualified Code(s): R11.2 - Nausea with vomiting, unspecified
[2019-09-10 06:12] LABS: Hemoglobin 14.9 g/dL (14.0-18.0); Mean Corpuscular Hemoglobin 29.3 pg (25-34); Mean Corpuscular Hgb Conc 34.7 g/dL (32-36); Mean Corpuscular Volume 84.6 fL (80-100); Mean Platelet Volume 8.7 fL (7.4-10.4); Platelet Count 232 K/uL (130-400); RDW Coefficient of Variation 12.8 % (11.5-14.5); RDW Standard Deviation 39.1 fL (36.4-46.3); Red Blood Count 5.08 M/uL (4.7-6.1); White Blood Count 6.34 K/uL (4.8-10.8)
[2019-09-10 06:24] LABS: Partial Thromboplastin Time 26.1 Seconds (21.0-31.0)
[2019-09-10] MEDS: METOCLOPRAMIDE HCL 5 MG TABLET PO SCH ×2 (08:19→12:46)
[2019-09-10] MEDS: PANTOprazole 40 MG TAB PO SCH (08:19)
[2019-09-10] MEDS: HEPARIN SOD 5,000 UNIT/0.5 ML VIAL SQ SCH (08:21)
[2019-09-10] MEDS: MAGNESIUM OXIDE 400 MG TAB PO SCH (08:21)
[2019-09-10] MEDS: ACETAMINOPHEN 325 MG TAB PO SCH (08:21)
[2019-09-10] MEDS: FAMOTIDINE 20 MG TAB PO SCH (08:21)
[2019-09-10] MEDS: INSULIN HUMAN REGULAR SC SCH ×2 (08:23→12:46)
[2019-09-10] MEDS ORDERED: INSULIN GLARGINE SOLOSTAR 100 UNITS/ML 3 ML PEN SQ SCH (09:00)
[2019-09-10] MEDS ORDERED: LISINOPRIL 20 MG TAB PO SCH (09:00)
--- NOTE | 2019-09-10 12:18 | Discharge Summary ---
Date of Service September 10, 2019 Admission HPI Per Admitting Provider He is a 43-year-old male with significant past medical history of type 2 diabetes on insulin with gastroparesis, adjustment disorder with depressed mood, hypertension, sleep apnea, esophagitis and intellectual disability has been complaining of abdominal pain associated with nausea, vomiting and diarrhea since Wednesday last. This is his third visit to the ER since Wednesday last and in between he was seen by his primary care physician and was given Reglan. His symptoms did not resolve and he is back in the ER with increasing abdominal pain nausea and vomiting as of this morning. He denies any fever and/or chills associated with it and he complains of diarrhea about 2 times per day. No history of coffee-ground vomiting or hematemesis and/or melena. Denies any chest pain, palpitation or shortness of breath. Denies any problem with urine. And does not have any headache, blurred vision, numbness and/or tingling in the extremities. He remains hemodynamically stable in the emergency room with symptoms of nausea and vomiting. A CAT scan of the abdomen and pelvis that was done on 10 June did show mild lower esophageal wall thickening and a CAT scan that was done today did show same appearance of the esophagus but no other significant findings. Given the ongoing symptoms of nausea, vomiting and diarrhea he was admitted to medical floor for continuation of care. A GI consultation will be taken. Admission Exam Per Admitting Provider Physical Exam: Lying in bed with mild distress secondary to abdominal pain Constitutional: well developed, well nourished, + acute distress (Due to abdominal discomfort), + ill appearing and + obese Eyes: PERRL, conjunctivae normal, anicteric sclerae ENMT: external ear and nose normal, oropharynx normal Neck: trachea midline, no thyromegaly Respiratory: normal respiratory effort; no respiratory distress Auscultation: lungs clear to auscultation bilaterally Cardiovascular: Rate/Rhythm: regular rate and regular rhythm Heart Sounds: no murmur Gastrointestinal (Abdomen): nspection/Auscultation: abdomen normal to inspection and normal bowel sounds Percussion/Palpation: + abdomen tender (Mildly tender all over but mainly in the epigastrium without guarding and/or rigidity) Musculoskeletal: No acute arthritis in any joints Neurologic: Alert, awake and oriented x3 Psychiatric: Affect: + depressed affect and + anxious affect Insight: + limited insight Judgement: + limited judgement Lymphatic: no cervical or axillary lymphadenopathy Principal Diagnosis esophagitis with resolution of intractable nausea and vomiting diabetic gastroparesis well-controlled DMII Discharge Exam CONSTITUTIONAL: WNWD, vitals as above, generally well-appearing EYES: normal conjunctivae, no scleral icterus ENT: MMM RESPIRATORY: clear to auscultation bilaterally, no crackles, rales or wheezes, normal respiratory effort CARDIOVASCULAR: regular rate and rhythm, S1 and 2 heard without murmurs, gallops or rubs, no JVD, no peripheral edema GASTROINTESTINAL: normal bowel sounds, soft, nontender, nondistended MUSCULOSKELETAL: strength 5/5 throughout, head is normocephalic and atraumatic, neck supple, normal palpation of chest wall without tenderness SKIN: warm and dry NEUROLOGIC: CN 2-12 grossly intact, normal cognition, no gross focal abnormalities. PSYCHIATRIC: alert cooperative and oriented to person, place and time. Discharge Data Allergies Allergy/AdvReac Type Severity Reaction Status Date / Time Cephalosporins Allergy Unknown Unknown Verified 09/11/19 16:36 NSAIDS (Non-Steroidal AdvReac Intermediate gastroparesis, Verified 09/11/19 16:36 Anti-Inflamma kidney problems Consultations 09/07/19 12:24 ED Decision to Admit Stat 09/07/19 13:39 Consult Gastroenterology Routine Ordered Studies 09/07/19 10:01 CT abd pelvis IV con only Stat 09/08/19 21:24 CT angio chest PE protocol Urgent Hospital Course (1) Nausea & vomiting: (2) Esophagitis: (3) Diabetic gastroparesis: (4) Diabetes mellitus, type 2: (5) HTN (hypertension): The patient was admitted to the hospitalist service and continued on Reglan and other antiemetics as needed. Clear liquids were ordered and [facility] was consulted, who follows him as an outpatient. Regarding the CT abnormality of the distal esophageal thickening this was seen in May and also during this admission. However, he notably had a recent EGD in August with a normal esophagus. He was continued on a proton pump inhibitor and H2 ryan. He improved but did have some nausea and vomiting when he tried to stack solid meals. To illustrate, on the evening of hospital day 2 he ate a pot roast dinner with boiled vegetables and potatoes followed by an egg salad sandwich 3 hours later. He felt well after the pot roast, but became sick after the egg salad. As he learned to eat smaller meals and portions things improved. By hospital day 3 he was doing well on Reglan 5 mg with meals, famotidine, Protonix. By hospital day 4 he felt ready to go back home and was tolerating p.o. reliably, doing well with smaller portions. At time of discharge she was ambulating and mentating at baseline and was asymptomatic. Of note his hemoglobin A1c was 6.6 which was a significant improvement from before, and he was congratulated on his diabetes control efforts. While hospitalized he was also seen by the inspector subassembly and recommendations included small frequent meals approximately 5 to 6/day, continuing PPI, Reglan, Pepcid and Bentyl per GI. Antiemetics as needed. There was also a question of if the Ozempic may be worsening his gastroparesis and this should be discussed with he and his primary care doctor. He was discharged in stable condition with close primary care follow-up recommended. Also of note his blood pressure was uncontrolled while admitted. His lisinopril was increased from 10 mg to 20 mg daily with a repeat BMP recommended in 2 weeks time and close outpatient follow-up with primary care for repeat blood pressure check. Total Time Total Time Spent Total Time Spent (In Minutes): 60 Total Time Includes: Examination of the Patient, Discharge Planning, Medication Reconciliation, Communication With Other Providers and Other (arrange followup) Discharge Plan Discharge Items Patient Disposition: Home - Self-Care Reason For Visit: INTRACTIBLE N/V WITH ESOPHAGEAL THICKENING IN CT Discharge Diagnosis: esophagitis with resolution of intractable nausea and vomiting diabetic gastroparesis well-controlled DMII Condition on Discharge: Good Activity: Resume your previous activity Non-emergency contact: Primary Care Provider Call non-emergency contact if: you have any medication questions, your symptoms worsen, your pain is not controlled, your pain is worsening, your pain is unusual for you, your pain is concerning for you and you have a fever Follow-up/Referrals: Nicko Barton MD [Primary Care Provider] - Diet: Carb Consistent or DM2 Addtl Attending Provider Instructions: Please take all medications as instructed on discharge list below. Please be aware that you have been given a higher dose of lisinopril which will require non-fasting bloodwork in two weeks (BMP) and a repeat blood pressure check by your primary care provider (PCP). It is recommended that you follow-up with your PCP within one week of discharge. Someone from our staff will contact you on Wednesday to set this up. Your Reglan dose was also decreased and should be taken with meals to help wtih nausea from diabetic gastroparesis. Remember to eat small, frequent meal portions. Congratulations on getting your diabetes under good control!!! It was a pleasure taking care of you! Please call if you have any questions or problems. You can reach a [facility] hospitalist on duty at [facility] 24 hours a day by calling [phone]. Take care of yourself. Sunni Canseco, DO [facility] Pending Studies at Discharge: No Stand-Alone Forms: Call Back Authorization, My [facility], Smoking Cessation Medications and DC Order Prescriptions: New lisinopril 20 mg Tablet 20 mg PO QAM Qty: 30 RF: 1 metoclopramide HCl 5 mg Tablet 5 mg PO AC Qty: 90 RF: 0 Continued Novolog Flexpen U-100 Insulin 100 unit/mL (3 mL) insulin pen 12 unit subcut TIDM RF: 0 Basaglar KwikPen U-100 Insulin 100 unit/mL (3 mL) insulin pen 20 unit subcut BID RF: 0 Ozempic 0.25 mg or 0.5 mg(2 mg/1.5 mL) pen injector 0.5 mg subcut WE RF: 0 pantoprazole [Protonix] 40 mg tablet,delayed release (DR/EC) 40 mg PO BID RF: 0 diclofenac sodium 1 % gel 1 % TOPICAL DIRECTED PRN (Reason: Pain) RF: 0 metformin 1,000 mg tablet 1,000 mg PO BIDM RF: 0 sildenafil [Viagra] 50 mg tablet 50 mg PO DAILY PRN (Reason: sexual activity) RF: 0 acetaminophen [Tylenol Arthritis Pain] 650 mg Tablet Extended Release 1,300 mg PO Q12H RF: 0 Discontinued lisinopril [Zestril] 10 mg Tablet 10 mg PO QAM RF: 0 prochlorperazine maleate [Compazine] 10 mg tablet 10 mg PO QID PRN (Reason: nausea and vomiting) Qty: 14 RF: 0 metoclopramide HCl [Reglan] 10 mg tablet 10 mg PO TID RF: 0 No Action prochlorperazine maleate 10 mg tablet 10 mg PO QID PRN (Reason: Nausea) RF: 0 dicyclomine 20 mg tablet 20 mg PO .QIDM PRN (Reason: abdominal pain) RF: 0 Discharge Orders: Discharge Order (Routine); Ordered 09/10/19 Ordered By: Sunni Lopez/Other Patient Handouts: ED Diabetic Gastroparesis Admission Data Admit Date/Time: 09/09/19 18:08 Attending Provider: Sunni Canseco Admit Provider: Madeline Rodriguez Primary Care Provider: Nicko Barton Other Providers: Alondra Cleaning ; Devora Gonzalez ; Hermelindo Young ; Shelley Parsons ; Steve Wyatt ; Belen Jones ; Kenneth Butterfield ; Verena Acosta ; George Shaw ; Janak Aldrich ; Soledad Saravia ; Linette Morales ; Aruna Guzman ; Marcela Del Valle ; Jenny Sosa ; Madeline Rodriguez Other Interventions: Discharge Summary Assessment (RN) Last Done: 09/10/19 12:40 DC Date/Time DO NOT enter until pt leaves facility: 09/10/19 12:55
== END 2019-09-10 12:55 | disposition home or self-care (01) | DRG 392 ==
LOC: ED 09:31 → SUATTDRO 13:12 → INTOOBSV 13:12 → 4W 13:12

== ENCOUNTER 2020-05-01 09:07 | Observation (INO) ==
[2020-05-01] MEDS ORDERED: ONDANSETRON INJ 2 MG/ML 2 ML VIAL IV STA ×2 (09:28→14:07)
[2020-05-01] MEDS ORDERED: MoRPHine SULFATE 4 MG/ML 1 ML CARP\\VIAL IV STA ×2 (09:28→12:08)
[2020-05-01] MEDS ORDERED: SODIUM CHLORIDE 0.9% 1000ML 1,000 ML IV SCH ×2 (09:30→14:30)
[2020-05-01 09:41] LABS: Appearance Urine Clear (Clear); Bacteria Urine Automated Negative (Negative); Blood Urine Negative (Negative); Color Urine Dark Yellow; Epithelial Cell Urine Auto >30 /lpf (0-5); Glucose Urine UA 2+ (Negative); Ketones Urine Trace (Negative); Leukocyte Esterase Urine Trace (Negative); Nitrite Urine Negative (Negative); Protein Urine 2+ (Negative); Specific Gravity Urine 1.043 (1.000-1.030); Urobilinogen Urine Negative (Negative)
[2020-05-01 09:43] LABS: Bilirubin Urine 1+ (Negative)
[2020-05-01] MEDS ORDERED: PANTOprazole 40 MG in SYRINGE 0 ML IV ONE (09:45)
[2020-05-01 09:46] LABS: Ictotest Urine Positive (Negative)
--- NOTE | 2020-05-01 09:50 | Emergency Department Note ---
History of Present Illness General Chief complaint: Abdominal Pain Stated complaint: LOWER BACK AND ABD PAIN WITH VOMITING Time Seen by Provider: 05/01/20 09:17 Source: patient Mode of arrival: ambulatory Limitations: no limitations History of Present Illness Maximum Pain Intensity: 8 This is a 44 yo male who presents the emergency room c/o vomiting since . Pt follows with [facility] due to significant Gi history. Pt noted red/orange emesis and was concerned for blood so he contacted his GI provider. Seen by GI this am in the office due to symptoms and hematemasis. Pt sent here from the office for evaluation. No dark/tarry stools. He has had abdominal pain since the weekend, progressively getting worse. Describes pain radiating in to the back. States feels similar to pancreatitis. Hx of episodes of vomiting like this previously. No recent flare ups since being on several meds. Pt also complaints of back pain. GI CNRP came to the emergency room and notified the resident, Dr. Gan, the patient was going to be taken for endoscopy. Pt seen during a time of high acuity and national emergency pandemic while wearing PPE. Home Medications Home Medications Medication Instructions Recorded Confirmed Type insulin aspart U-100 [Novolog 12 unit SUBCUT TIDM 06/09/19 05/01/20 History Flexpen U-100 Insulin] pantoprazole [Protonix] 40 mg PO BID 07/06/19 05/01/20 History acetaminophen [Tylenol Arthritis 1,300 mg PO Q12H 08/05/19 05/01/20 History Pain] diclofenac sodium 1 % TOPICAL DIRECTED PRN 08/31/19 05/01/20 History metformin 1,000 mg PO BIDM 09/04/19 05/01/20 History lisinopril 20 mg PO QAM #30 tab 09/10/19 05/01/20 Rx insulin glargine [Lantus Solostar 18 unit SUBCUT BID 01/04/20 05/01/20 History U-100 Insulin] diphenhydramine-acetaminophen 2 tab PO HS PRN 04/19/20 05/01/20 History [Tylenol PM Extra Strength] dulaglutide [Trulicity] 1.5 mg SUBCUT WK 04/19/20 05/01/20 History ibuprofen 400 - 800 mg PO BID 04/19/20 05/01/20 History loperamide [Imodium A-D] 4 mg PO HS 04/19/20 05/01/20 History dicyclomine 10 mg PO QID 05/01/20 05/01/20 History metoclopramide HCl 10 mg PO TIDM 05/01/20 05/01/20 History Allergies Allergy/AdvReac Type Severity Reaction Status Date / Time Cephalosporins Allergy Unknown Unknown Verified 05/01/20 09:44 NSAIDS (Non-Steroidal AdvReac Intermediate gastroparesis, Verified 05/01/20 09:44 Anti-Inflamma kidney problems Past Med/Surg History Medical History Acquired claw toe of left foot (Acute) Acquired claw toe of right foot (Acute) Acquired hallux valgus of right foot (Acute) Adjustment disorder with depressed mood (Inactive) Cardiac murmur A CHILD Deep vein thrombosis 5 YEARS AGO (? REASON/WAS ON ANTICOAGS FOR A SHORT TIME) Depression (Chronic) Diabetes mellitus with diabetic polyneuropathy (Acute) Diabetes mellitus with neurological manifestation (Chronic) "Diabetic neuropathy reported in hands and feet" Diabetes mellitus, type 2 (Chronic) Erectile dysfunction (Inactive) Esophagitis (Inactive) Gastroparesis (Chronic) GERD (gastroesophageal reflux disease) Hallux valgus (acquired), left foot (Acute) History of ventricular tachycardia (Inactive) "nonsustained" HTN (hypertension) (Chronic) Hx of pancreatitis Hypertension (Chronic) IBS (irritable bowel syndrome) (Chronic) Intellectual disability (Inactive) MRSA (methicillin resistant Staphylococcus aureus) carrier (Chronic) Nicotine dependence (Chronic) Obesity (Inactive) Obstructive sleep apnea (Inactive) Osteoarthritis Peripheral neuropathy Surgical History H/O foot surgery LEFT History of arthroscopy LEFT KNEE History of colonoscopy History of esophagogastroduodenoscopy (EGD) History of tonsillectomy and adenoidectomy History of tooth extraction S/P left knee arthroscopy (Resolved) Family History Brother Family history of diabetes mellitus Mother Family history of diabetes mellitus Father Family history of diabetes mellitus Social History Preferred Language: Chadian Communication Ability: Effective Revenue Enforcement Agent Required: No Beliefs That Will Affect Care: None Current Living Situation: Family Current Living Situation Comment: lives with sister Other Information That Helps Us Care for You: No Feels Safe at Home: Yes Safety Concerns: Feels Safe At This Time Smoking Status: Current every day smoker Tobacco Type: cigarettes ; Cigarettes Per Day: 1.5 ppd ; Second Hand Exposure: No ; Hx Alcohol Use: Yes Alcohol type: beer and hard liquor Alcohol Intake Frequency: Rarely Hx Substance Use: No Review of Systems See HPI for pertinent positives & negatives. and A total of 10 systems reviewed and were otherwise negative Physical Exam Vital Signs Vital Signs - 24 hr 05/01/20 11:30 05/01/20 12:01 05/01/20 13:05 Pulse Rate 107 H 111 H 107 H Pulse Rate from SpO2 Sensor 108 H 111 H 106 H Respiratory Rate 15 13 13 Blood Pressure 149/89 H 145/87 H 169/119 H Blood Pressure Mean 100 100 140 Pulse Oximetry 94 97 94 Oxygen Delivery Method Room Air 05/01/20 13:35 05/01/20 14:00 05/01/20 14:30 Pulse Rate 113 H 105 H 107 H Pulse Rate from SpO2 Sensor 112 H 105 H 110 H Respiratory Rate 20 15 17 Blood Pressure 170/120 H 160/88 H 129/93 Blood Pressure Mean 126 109 99 Pulse Oximetry 92 92 94 Oxygen Delivery Method Room Air Room Air Room Air GENERAL: alert, uncomfortable appearing, well nourished, no distress, non-toxic EYE EXAM: normal conjunctiva, PERRL and EOM's grossly intact OROPHARYNX: no exudate, no erythema, lips, buccal mucosa, and tongue normal and mucous membranes are moist NECK: supple, no nuchal rigidity, no adenopathy, non-tender LUNGS: Clear to auscultation. Normal chest wall mechanics, no w/r/r HEART: no murmurs, S1 normal and S2 normal ABDOMEN: abdomen soft, generalized abdominal discomfort, normo-active bowel sounds, no masses, no rebound or guarding. BACK: Back is symmetrical on inspection and there is no deformity, no midline tenderness, no CVA tenderness. SKIN: no rashes and no bruising UPPER EXTREMITIES: upper extremities are grossly normal. FROM, nml pulses b/l. LOWER EXTREMITIES: No pitting edema. FROM, nml pulses b/l. NEURO EXAM: Normal sensorium, cranial nerves II-XII grossly intact, normal speech, no gross weakness of arms, no gross weakness of legs. Gross sensation intact. Course Course 1026: Patient updated on results so far. Patient states he is still having pain. IV fluids are running. We discussed CT imaging. Dr. Gan had already performed a bedside rectal exam which revealed brown stool that was heme-negative on guaiac testing. 1305: Received a call from HIRA Rowe, who states they would like patient kept overnight for observation and will plan on doing endoscopy in the morning. 1405: Patient updated on additional test results. Patient still complaining of nausea and abdominal pain. Patient updated on GIs recommendation for plan. 1426: Case discussed with Nely haque, [facility]. Administered Medications Acetaminophen (Tylenol) 650 mg PO Q4H PRN PRN Reason: pain/fever Stop: 05/31/20 16:22 Last Admin: 05/02/20 12:17 Dose: 650 mg Documented by: [id number] Admin: 05/02/20 06:06 Dose: 650 mg Documented by: [id number] Dicyclomine HCl (Bentyl) 10 mg PO QID [facility] Stop: 05/31/20 16:59 Last Admin: 05/02/20 16:40 Dose: 10 mg Documented by: [id number] Admin: 05/02/20 12:51 Dose: 10 mg Documented by: [id number] Admin: 05/02/20 07:42 Dose: 10 mg Documented by: [id number] Admin: 05/01/20 20:49 Dose: 10 mg Documented by: [id number] Admin: 05/01/20 17:34 Dose: 10 mg Documented by: [id number] Sodium Chloride (Nss 1000ml) 1,000 mls @ 100 mls/hr IV .Q10H SOPHIA Stop: 05/31/20 16:22 Last Admin: 05/02/20 12:11 Dose: 100 mls/hr Documented by: [id number] Infusion: 05/02/20 12:11 Dose: 100 mls/hr Documented by: [id number] Admin: 05/02/20 02:25 Dose: 100 mls/hr Documented by: [id number] Infusion: 05/02/20 02:25 Dose: 100 mls/hr Documented by: [id number] Admin: 05/01/20 16:50 Dose: 100 mls/hr Documented by: [id number] Promethazine HCl 12.5 mg/ (Sodium Chloride) 50.5 mls @ 202 mls/hr IV Q6H PRN PRN Reason: Nausea And Vomiting Stop: 05/31/20 16:22 Last Infusion: 05/02/20 06:14 Dose: 0 mls/hr Documented by: [id number] Admin: 05/02/20 05:50 Dose: 202 mls/hr Documented by: [id number] Pantoprazole Sodium 40 mg/ (Syringe) 10 mls @ 5 mls/min IV BID SOPHIA Stop: 05/31/20 20:59 Last Admin: 05/02/20 07:42 Dose: 5 mls/min Documented by: [id number] Admin: 05/01/20 20:50 Dose: 5 mls/min Documented by: [id number] Insulin Aspart (Novolog Flexpen) 0 units SC ACHS [facility] Stop: 06/01/20 16:29 Last Admin: 05/02/20 17:03 Dose: 2 units Documented by: [id number] Cosigned by: [id number] Insulin Glargine (Lantus Solostar Pen) 10 units SC BID [facility] Stop: 05/31/20 20:59 Last Admin: 05/02/20 08:44 Dose: 10 units Documented by: [id number] Cosigned by: [id number] Admin: 05/01/20 20:50 Dose: 10 units Documented by: [id number] Cosigned by: [id number] Lidocaine (Lidoderm 5%) 1 patch TD QAM [facility] Stop: 06/01/20 12:29 Last Admin: 05/02/20 13:07 Dose: 1 patch Documented by: [id number] Lisinopril (Zestril) 20 mg PO QAM [facility] Stop: 06/01/20 08:59 Last Admin: 05/02/20 07:42 Dose: 20 mg Documented by: [id number] Metoclopramide HCl (Reglan) 10 mg PO TIDM [facility] Stop: 05/31/20 16:59 Last Admin: 05/02/20 16:40 Dose: 10 mg Documented by: [id number] Admin: 05/02/20 12:11 Dose: 10 mg Documented by: [id number] Admin: 05/02/20 07:41 Dose: 10 mg Documented by: [id number] Admin: 05/01/20 17:35 Dose: 10 mg Documented by: [id number] Morphine Sulfate (Morphine Sulfate) 2 mg IV Q4H PRN PRN Reason: Pain Stop: 05/15/20 16:22 Last Admin: 05/02/20 03:21 Dose: 2 mg Documented by: [id number] Discontinued Medications Hydromorphone HCl (Dilaudid) 0.5 mg IV NOW STA Stop: 05/01/20 14:19 Last Admin: 05/01/20 14:36 Dose: 0.5 mg Documented by: [id number] Sodium Chloride (Nss 1000ml) 1,000 mls @ 999 mls/hr IV .Q1H1M SOPHIA Stop: 05/01/20 10:30 Last Infusion: 05/01/20 10:49 Dose: 0 mls/hr Documented by: [id number] Admin: 05/01/20 09:48 Dose: 999 mls/hr Documented by: [id number] Pantoprazole Sodium 40 mg/ (Syringe) 10 mls @ 5 mls/min IV NOW ONE Stop: 05/01/20 09:46 Last Admin: 05/01/20 09:58 Dose: 5 mls/min Documented by: [id number] Sodium Chloride (Nss 1000ml) 1,000 mls @ 125 mls/hr IV .Q8H SOPHIA Stop: 05/31/20 14:29 Last Infusion: 05/01/20 16:28 Dose: 0 mls/hr Documented by: [id number] Infusion: 05/01/20 16:27 Dose: 0 mls/hr Documented by: [id number] Admin: 05/01/20 14:36 Dose: 125 mls/hr Documented by: [id number] Insulin Aspart (Novolog Flexpen) 0 units SC ACHS SOPHIA Stop: 05/31/20 16:29 Last Admin: 05/01/20 20:50 Dose: Not Given Documented by: [id number] Cosigned by: [id number] Admin: 05/01/20 17:41 Dose: 3 units Documented by: [id number] Cosigned by: [id number] Insulin Aspart (Novolog Flexpen) 0 units SC Q6 SOPHIA Stop: 06/01/20 05:59 Last Admin: 05/02/20 12:11 Dose: 2 units Documented by: [id number] Cosigned by: [id number] Admin: 05/02/20 05:57 Dose: 2 units Documented by: [id number] Cosigned by: [id number] Ioversol (Optiray 320 100ml) 94 ml IV ONCE PRN PRN Reason: Interaction Checking Stop: 05/05/20 13:29 Last Admin: 05/01/20 13:31 Dose: 94 ml Documented by: [id number] Lidocaine HCl (Xylocaine 2%) Confirm Administered Dose 4 ml INFIL .STK-MED ONE Stop: 05/02/20 11:09 Last Admin: 05/02/20 12:00 Dose: Not Given Documented by: [id number] Morphine Sulfate (Morphine Sulfate) 2 mg IV NOW STA Stop: 05/01/20 09:29 Last Admin: 05/01/20 09:48 Dose: 2 mg Documented by: [id number] Morphine Sulfate (Morphine Sulfate) 4 mg IV NOW STA Stop: 05/01/20 12:09 Last Admin: 05/01/20 12:13 Dose: 4 mg Documented by: [id number] Ondansetron HCl (Zofran) 4 mg IV NOW STA Stop: 05/01/20 09:29 Last Admin: 05/01/20 09:48 Dose: 4 mg Documented by: [id number] Ondansetron HCl (Zofran) 4 mg IV NOW STA Stop: 05/01/20 14:08 Last Admin: 05/01/20 14:13 Dose: 4 mg Documented by: [id number] Propofol (Diprivan) Confirm Administered Dose 200 mg IV .STK-MED ONE Stop: 05/02/20 11:09 Last Admin: 05/02/20 12:00 Dose: Not Given Documented by: [id number] Medical Decision Making Differential Diagnosis Differential: Gastroenteritis, Food Borne, Esophageal Perforation, , Electrolyte Abnormality, Dehydration, Intraabdominal Infection, UTI/Pyelonephritis, Bowel Obstruction, Biliary Pathology, amongst other pathology entertained. Medical Records Attestation: I reviewed the patient's medical records. Home Medications Current Medication List: was personally reviewed by me Laboratory Data Attestation: I reviewed the patient's lab results. Result diagrams: 05/02/20 06:04 05/02/20 06:04 Lab Results 05/01/20 05/01/20 05/01/20 Range/Units 09:30 09:30 09:40 WBC 8.12 (4.8-10.8) K/uL RBC 5.00 (4.7-6.1) M/uL Hgb 14.3 (14.0-18.0) g/dL Hct 42.1 (42-52) % MCV 84.2 (80-100) fL MCH 28.6 (25-34) pg MCHC 34.0 (32-36) g/dL RDW Std Deviation 39.4 (36.4-46.3) fL RDW Coeff of Abiodun 13.0 (11.5-14.5) % Plt Count 239 (130-400) K/uL MPV 9.0 (7.4-10.4) fL Immature Gran % (Auto) 1.1 % Neut % (Auto) 64.7 % Lymph % (Auto) 20.6 % [place] % (Auto) 8.5 % Eos % (Auto) 4.6 % Baso % (Auto) 0.5 % Neut # (Auto) 5.26 (1.4-6.5) K/uL Lymph # (Auto) 1.67 (1.2-3.4) K/uL [place] # (Auto) 0.69 H (0.11-0.59) K/uL Eos # (Auto) 0.37 (0-0.5) K/uL Baso # (Auto) 0.04 (0-0.2) K/uL Immature Gran # (Auto) 0.09 H (0.00-0.02) K/uL PT (9.0-12.0) Seconds INR (0.9-1.1) APTT (21.0-31.0) Seconds PTT Ratio Sodium (136-145) mmol/L Potassium (3.5-5.1) mmol/L Chloride (98-107) mmol/L Carbon Dioxide (21-32) mmol/L Anion Gap (3-11) BUN (7-18) mg/dl Creatinine (0.6-1.4) mg/dl Est Cr Clr Drug Dosing ml/min Est GFR ( Amer) Est GFR (Non-Af Amer) BUN/Creatinine Ratio (10-20) Glucose (70-99) mg/dl Calcium (8.5-10.1) mg/dl Magnesium (1.8-2.4) mg/dl Total Bilirubin (0.2-1) mg/dl AST (15-37) U/L ALT (12-78) U/L Alkaline Phosphatase (45-117) U/L Total Protein (6.4-8.2) gm/dl Albumin (3.4-5.0) gm/dl Globulin (2.5-4.0) gm/dl Albumin/Globulin Ratio (0.9-2) Lipase (73-393) U/L Urine Color Dark Yellow Urine Appearance Clear (Clear) Urine pH 5.0 (4.5-7.5) Ur Specific [place] 1.043 H (1.000-1.030) Urine Protein 2+ H (Negative) Urine Glucose (UA) 2+ H (Negative) Urine Ketones Trace H (Negative) Urine Blood Negative (Negative) Urine Nitrite Negative (Negative) Urine Bilirubin 1+ H (Negative) Urine Urobilinogen Negative (Negative) Ur Leukocyte Esterase Trace H (Negative) Urine WBC (Auto) 1-5 (0-5) /hpf Urine RBC (Auto) 5-10 H (0-4) /hpf U Hyaline Cast (Auto) 1-5 (0-5) /lpf U Epithel Cells (Auto) >30 H (0-5) /lpf Urine Bacteria (Auto) Negative (Negative) Urine Opiates Screen Neg (Neg) Ur Methadone, Qual Neg (Neg) Urine Barbiturates Neg (Neg) Ur Phencyclidine (PCP) Neg (Neg) U Amphetamin/Meth Scrn Neg (Neg) MDMA (Ecstasy) Screen Neg (Neg) U Benzodiazepines Scrn Neg (Neg) Ur Cocaine Metabolite Neg (Neg) U Marijuana (THC) Screen Neg (Neg) Blood Type Antibody Screen Crossmatch 05/01/20 05/01/20 05/01/20 Range/Units 09:40 09:40 09:40 WBC (4.8-10.8) K/uL RBC (4.7-6.1) M/uL Hgb (14.0-18.0) g/dL Hct (42-52) % MCV (80-100) fL MCH (25-34) pg MCHC (32-36) g/dL RDW Std Deviation (36.4-46.3) fL RDW Coeff of Abiodun (11.5-14.5) % Plt Count (130-400) K/uL MPV (7.4-10.4) fL Immature Gran % (Auto) % Neut % (Auto) % Lymph % (Auto) % [place] % (Auto) % Eos % (Auto) % Baso % (Auto) % Neut # (Auto) (1.4-6.5) K/uL Lymph # (Auto) (1.2-3.4) K/uL [place] # (Auto) (0.11-0.59) K/uL Eos # (Auto) (0-0.5) K/uL Baso # (Auto) (0-0.2) K/uL Immature Gran # (Auto) (0.00-0.02) K/uL PT 10.6 (9.0-12.0) Seconds INR 1.0 (0.9-1.1) APTT 27.1 (21.0-31.0) Seconds PTT Ratio 1.0 Sodium 137 (136-145) mmol/L Potassium 3.7 (3.5-5.1) mmol/L Chloride 102 (98-107) mmol/L Carbon Dioxide 29 (21-32) mmol/L Anion Gap 5.0 (3-11) BUN 22 H (7-18) mg/dl Creatinine 0.94 (0.6-1.4) mg/dl Est Cr Clr Drug Dosing 147.1 ml/min Est GFR ( Amer) 112.2 Est GFR (Non-Af Amer) 96.8 BUN/Creatinine Ratio 23.3 H (10-20) Glucose 158 H (70-99) mg/dl Calcium 9.1 (8.5-10.1) mg/dl Magnesium (1.8-2.4) mg/dl Total Bilirubin 0.5 (0.2-1) mg/dl AST 23 (15-37) U/L ALT 63 (12-78) U/L Alkaline Phosphatase 62 (45-117) U/L Total Protein 7.6 (6.4-8.2) gm/dl Albumin 3.8 (3.4-5.0) gm/dl Globulin 3.8 (2.5-4.0) gm/dl Albumin/Globulin Ratio 1.0 (0.9-2) Lipase 109 (73-393) U/L Urine Color Urine Appearance (Clear) Urine pH (4.5-7.5) Ur Specific [place] (1.000-1.030) Urine Protein (Negative) Urine Glucose (UA) (Negative) Urine Ketones (Negative) Urine Blood (Negative) Urine Nitrite (Negative) Urine Bilirubin (Negative) Urine Urobilinogen (Negative) Ur Leukocyte Esterase (Negative) Urine WBC (Auto) (0-5) /hpf Urine RBC (Auto) (0-4) /hpf U Hyaline Cast (Auto) (0-5) /lpf U Epithel Cells (Auto) (0-5) /lpf Urine Bacteria (Auto) (Negative) Urine Opiates Screen (Neg) Ur Methadone, Qual (Neg) Urine Barbiturates (Neg) Ur Phencyclidine (PCP) (Neg) U Amphetamin/Meth Scrn (Neg) MDMA (Ecstasy) Screen (Neg) U Benzodiazepines Scrn (Neg) Ur Cocaine Metabolite (Neg) U Marijuana (THC) Screen (Neg) Blood Type O Positive Antibody Screen NEGATIVE Crossmatch See Detail 05/01/20 Range/Units 09:40 WBC (4.8-10.8) K/uL RBC (4.7-6.1) M/uL Hgb (14.0-18.0) g/dL Hct (42-52) % MCV (80-100) fL MCH (25-34) pg MCHC (32-36) g/dL RDW Std Deviation (36.4-46.3) fL RDW Coeff of Abiodun (11.5-14.5) % Plt Count (130-400) K/uL MPV (7.4-10.4) fL Immature Gran % (Auto) % Neut % (Auto) % Lymph % (Auto) % [place] % (Auto) % Eos % (Auto) % Baso % (Auto) % Neut # (Auto) (1.4-6.5) K/uL Lymph # (Auto) (1.2-3.4) K/uL [place] # (Auto) (0.11-0.59) K/uL Eos # (Auto) (0-0.5) K/uL Baso # (Auto) (0-0.2) K/uL Immature Gran # (Auto) (0.00-0.02) K/uL PT (9.0-12.0) Seconds INR (0.9-1.1) APTT (21.0-31.0) Seconds PTT Ratio Sodium (136-145) mmol/L Potassium (3.5-5.1) mmol/L Chloride (98-107) mmol/L Carbon Dioxide (21-32) mmol/L Anion Gap (3-11) BUN (7-18) mg/dl Creatinine (0.6-1.4) mg/dl Est Cr Clr Drug Dosing ml/min Est GFR ( Amer) Est GFR (Non-Af Amer) BUN/Creatinine Ratio (10-20) Glucose (70-99) mg/dl Calcium (8.5-10.1) mg/dl Magnesium 1.9 (1.8-2.4) mg/dl Total Bilirubin (0.2-1) mg/dl AST (15-37) U/L ALT (12-78) U/L Alkaline Phosphatase (45-117) U/L Total Protein (6.4-8.2) gm/dl Albumin (3.4-5.0) gm/dl Globulin (2.5-4.0) gm/dl Albumin/Globulin Ratio (0.9-2) Lipase (73-393) U/L Urine Color Urine Appearance (Clear) Urine pH (4.5-7.5) Ur Specific [place] (1.000-1.030) Urine Protein (Negative) Urine Glucose (UA) (Negative) Urine Ketones (Negative) Urine Blood (Negative) Urine Nitrite (Negative) Urine Bilirubin (Negative) Urine Urobilinogen (Negative) Ur Leukocyte Esterase (Negative) Urine WBC (Auto) (0-5) /hpf Urine RBC (Auto) (0-4) /hpf U Hyaline Cast (Auto) (0-5) /lpf U Epithel Cells (Auto) (0-5) /lpf Urine Bacteria (Auto) (Negative) Urine Opiates Screen (Neg) Ur Methadone, Qual (Neg) Urine Barbiturates (Neg) Ur Phencyclidine (PCP) (Neg) U Amphetamin/Meth Scrn (Neg) MDMA (Ecstasy) Screen (Neg) U Benzodiazepines Scrn (Neg) Ur Cocaine Metabolite (Neg) U Marijuana (THC) Screen (Neg) Blood Type Antibody Screen Crossmatch Imaging Data Radiologist's Impression: CT abd pelvis oral and IV con CT DOSE: 1139.59 mGycm HISTORY: Pain. Nausea. abd pain, vomiting TECHNIQUE: Multiaxial CT images of the abdomen and pelvis were performed following the use of intravenous and oral contrast. A dose lowering technique was utilized adhering to the principles of ALARA. COMPARISON STUDY: 09/07/2019 FINDINGS: Lung bases remain clear. Small hiatal hernia. Mild fatty replacement of the liver. Kidneys enhance uniformly. No evidence for hydronephrosis. Bowel pattern is consistent with scattered colonic diverticulosis. No evidence for acute diverticulitis. No free fluid within the pelvic cul-de-sac. Normal append ix. IMPRESSION: 1. Small hiatal hernia. 2. Fatty replacement of the liver. 3. Scattered colonic diverticulosis with no evidence for acute diverticulitis. 4. Normal appendix. ACT 112: Negative or not required by law. The above report was generated using voice recognition software. It may contain grammatical, syntax or spelling errors. Electronically signed by: Colt Sousa M.D. 05/01/2020 1:40 PM Blood Pressure Blood Pressure Findings: Elevated blood pressure Blood Pressure Disposition: further management by hospitalist MDM Narrative Patient presenting here after evaluation the GI office for concern of hematemesis. Patient states abdominal pain over the last several days feels similar to his pancreatitis or his gastroparesis. Patient with complicated past GI history. Patient sent in initially plan for EGD as reported seen by GI PRE [employer] COUNSELING AIDE. Upon additional discussion between the resident Dr. Gan and GI they did request an additional evaluation here and their plan was to see if patient could undergo endoscopy today versus he should be kept overnight and have endoscopy in the morning. Patient underwent labs and imaging here. No evidence of acute pancreatitis. No evidence of obstruction, mesenteric ischemia, perforation. Case discussed with hospitalist for additional observation and endoscopy in the morning. Patient's H&H stable. Patient hemodynamically stable. Patient persistently tacky here I feel in part secondary to pain as well as anxiety. Patient was given careful IV fluid hydration and was given a dose of a PPI. Patient is not using any NSAIDs, aspirin, or anticoagulation. An order was placed for continuous cardiac monitoring. The monitor shows a rate of 116 with sinus tachycardia rhythm. Impression & Plan Abdominal pain, generalized, Nausea & vomiting, Hematemesis Discharge Plan Visit Data *Final* Discharge Date/Time: 05/01/20 15:48 Chief Complaint: Abdominal Pain Stated Complaint: LOWER BACK AND ABD PAIN WITH VOMITING ED Provider: Karly Sosa ED Midlevel Provider: Ray Gan Discharge Problem: Abdominal pain, generalized, Nausea & vomiting, Hematemesis Patient Disposition: Admitted As Inpatient Discharge Instructions Interventions: ED Discharge Assessment Last Done: 05/01/20 15:48 Discharge Problem: Hematemesis Qualifiers: Nausea presence: unspecified Qualified Code(s): K92.0 - Hematemesis
[2020-05-01 09:52] LABS: Basophils # (auto) 0.04 K/uL (0-0.2); Basophils % (auto) 0.5 %; Eosinophils # (auto) 0.37 K/uL (0-0.5); Eosinophils % (auto) 4.6 %; Hematocrit (blood only) 42.1 % (42-52); Hemoglobin 14.3 g/dL (14.0-18.0); Immature Granulocytes # (auto) 0.09 K/uL (0.00-0.02); Immature Granulocytes % (auto) 1.1 %; Lymphocytes # (auto) 1.67 K/uL (1.2-3.4); Lymphocytes % (auto) 20.6 %; Mean Corpuscular Hemoglobin 28.6 pg (25-34); Mean Corpuscular Volume 84.2 fL (80-100); Monocytes # (auto) 0.69 K/uL (0.11-0.59); Monocytes % (auto) 8.5 %; Neutrophils # (auto) 5.26 K/uL (1.4-6.5); Neutrophils % (auto) 64.7 %; Platelet Count 239 K/uL (130-400); RDW Standard Deviation 39.4 fL (36.4-46.3); White Blood Count 8.12 K/uL (4.8-10.8)
--- NOTE | 2020-05-01 09:56 | Gastrointestinal Consultation ---
Date of Consultation May 01, 2020 Assessment & Plan (1) Gastroparesis: 44 year old male with gastroparesis sent to the ED for GI clinic for evaluation of hematemesis. Endorses generalized abd pain, vomiting since Wednesday with development of coffee ground emesis and hematemesis yesterday, l ast episode of bloody emesis was en route to [facility], [place]. Tachycardic, BP stable, labs pending. No NSAIDs. No AC. NPO IV PPI bolus Labs CTAP EGD timing to be determined Trend HGB Monitor output Transfuse if necessary Thank you for allowing us to participate in the care of this patient. Please call with any acute changes, questions or concerns. Please see addendum below with additional recommendation from my supervising physician. Supervising Physician Co-Signing Physician Notes I saw and evaluated the patient in the emergency room. He was referred to the emergency room this morning after he reported having hematemesis at home. The patient has a history of diabetes and suspected gastroparesis. He last had an upper endoscopy which showed evidence of reflux esophagitis. The patient is a very poor historian is not certain if he has had any recent changes of medications. Of note after review of his outpatient medications it appears that he was started on Trulicity 4 months ago. Physical examination Obese male in no obvious distress Minimal abdominal tenderness Impression: Patient with a history of diabetes and suspected gastroparesis (no gastric emptying study available) Presenting with coffee-ground emesis. I Wonder if this patient's symptoms could be related to use of Trulicity as this is associated with nausea and vomiting. REcomendations: NPO For endoscopy to be scheduled for tomorrow Continue use of antiemetics, consider use of erythromycin Consider discontinuation of Trulicity as this could be causing the patient's symptoms History of Present Illness Reason for Consultation: hematemesis Requesting Physician: Aruna Guzman Attending Physician: Unassigned in ED History of Present Illness 44 year old male with history of intellectual disability, T2DM, dyslipidemia, HTN, GERD, IBS, gastroparesis who presented to the ED from OP GI clinic appointment with active hematemesis. Pt was seen and evaluated, chart reviewed. Endorses generalized abd pain and vomiting since Wednesday. Last evening he noted his emesis started to look coffee ground in appearance and then noted h ematemesis. He suggests he had a large episodes of hematemesis en route to [facility], [place]. Suggests he had a small emesis in the ED which was less bloody. Also endorses alternating stools at baseline, loose stools/constipation. Denies black or bloody stools. No fever, chills, CP, SOB. Unable to name his medications but notes he only takes whats prescribed No NSAIDs suspected No AC suspected EGD in 2019 w/ esophagitis Allergies Allergy/AdvReac Type Severity Reaction Status Date / Time Cephalosporins Allergy Unknown Unknown Verified 05/01/20 09:44 NSAIDS (Non-Steroidal AdvReac Intermediate gastroparesis, Verified 05/01/20 09:44 Anti-Inflamma kidney problems Home Medications Home Medications Medication Instructions Recorded Confirmed Type insulin aspart U-100 [Novolog 12 unit SUBCUT TIDM 06/09/19 05/01/20 History Flexpen U-100 Insulin] pantoprazole [Protonix] 40 mg PO BID 07/06/19 05/01/20 History acetaminophen [Tylenol Arthritis 1,300 mg PO Q12H 08/05/19 05/01/20 History Pain] diclofenac sodium 1 % TOPICAL DIRECTED PRN 08/31/19 05/01/20 History metformin 1,000 mg PO BIDM 09/04/19 05/01/20 History lisinopril 20 mg PO QAM #30 tab 09/10/19 05/01/20 Rx insulin glargine [Lantus Solostar 18 unit SUBCUT BID 01/04/20 05/01/20 History U-100 Insulin] diphenhydramine-acetaminophen 2 tab PO HS PRN 04/19/20 05/01/20 History [Tylenol PM Extra Strength] dulaglutide [Trulicity] 1.5 mg SUBCUT WK 04/19/20 05/01/20 History ibuprofen 400 - 800 mg PO BID 04/19/20 05/01/20 History loperamide [Imodium A-D] 4 mg PO HS 04/19/20 05/01/20 History dicyclomine 10 mg PO QID PRN 05/01/20 05/01/20 History Patient History Medical History Acquired claw toe of left foot (Acute) Acquired claw toe of right foot (Acute) Acquired hallux valgus of right foot (Acute) Cardiac murmur A CHILD Deep vein thrombosis 5 YEARS AGO (? REASON/WAS ON ANTICOAGS FOR A SHORT TIME) Depression (Chronic) Diabetes mellitus with diabetic polyneuropathy (Acute) Diabetes mellitus with neurological manifestation (Chronic) "Diabetic neuropathy reported in hands and feet" Diabetes mellitus, type 2 (Chronic) Gastroparesis (Chronic) GERD (gastroesophageal reflux disease) Hallux valgus (acquired), left foot (Acute) Hx of pancreatitis Hypertension (Chronic) IBS (irritable bowel syndrome) (Chronic) MRSA (methicillin resistant Staphylococcus aureus) carrier (Chronic) Nicotine dependence (Chronic) Osteoarthritis Peripheral neuropathy Surgical History H/O foot surgery LEFT History of arthroscopy LEFT KNEE History of colonoscopy History of esophagogastroduodenoscopy (EGD) History of tonsillectomy and adenoidectomy History of tooth extraction Family History Brother Family history of diabetes mellitus Mother Family history of diabetes mellitus Father Family history of diabetes mellitus Social History Preferred Language: Liberian Communication Ability: Effective Gis Coordinator Required: No Beliefs That Will Affect Care: None Current Living Situation: Family Feels Safe at Home: Yes Smoking Status: Current every day smoker Tobacco Type: cigarettes ; Cigarettes Per Day: 30 ; Second Hand Exposure: No ; Hx Alcohol Use: Yes Alcohol type: beer and hard liquor Hx Substance Use: No Review of Systems Constitutional: no fever, no chills, no fatigue and no anorexia Respiratory: no cough, no dyspnea, no dyspnea on exertion and no pain with cough Cardiovascular: no chest pain, no dyspnea, no dyspnea on exertion and no orthopnea Gastrointestinal: + abdominal pain, + heartburn, + coffee ground emesis, + hematemesis and + diarrhea/loose stools; no change in stools, no blood in stools and no melena Physical Exam Constitutional: well developed, well nourished and + obese; no acute distress Neck: trachea midline Respiratory: normal respiratory effort Cardiovascular: Rate/Rhythm: regular rate and regular rhythm Gastrointestinal (Abdomen): Inspection/Auscultation: normal bowel sounds Percussion/Palpation: + abdomen tender and abdomen soft; no guarding, abdomen not rigid and no abdominal mass Skin: no rashes, warm and dry Results & Data ([facility]) Vital Signs (Past 12 Hours) Vital Signs Temp Pulse Resp BP Pulse Ox 05/01/20 09:13 36.8 C 116 H 22 172/93 H 95 Laboratory Results Labs pending
--- NOTE | 2020-05-01 09:59 | Emergency Department Note ---
ED Visit Note I have seen patient and discussed with Dr. Sosa, I will be placing orders .
[2020-05-01 10:08] LABS: Partial Thromboplastin Time 27.1 Seconds (21.0-31.0); Prothrombin Time 10.6 Seconds (9.0-12.0)
--- NOTE | 2020-05-01 10:18 | XRay Report ---
XR chest 1V portable HISTORY: Hematemesis COMPARISON: Chest 04/19/2020. FINDINGS: There are low lung volumes. The lungs are clear. The cardiac silhouette is mildly enlarged. This remains unchanged. This could be accentuated by the low lung volumes. No pleural effusions. No pneumothorax. IMPRESSION: No significant change compared to the prior study. No acute process. Stable mild cardiomegaly. ACT 112: Negative or not required by law. Electronically signed by: Vijay Wadsworth M.D. 05/01/2020 10:17 AM
[2020-05-01 10:22] LABS: Albumin Level 3.8 gm/dl (3.4-5.0); BUN Creatinine Ratio 23.3 (10-20); Calcium 9.1 mg/dl (8.5-10.1); Creatinine Clr Calc Pharmacy 147.1 ml/min; Est GFR (African American) 112.2; Est GFR (Non-African American) 96.8; Potassium 3.7 mmol/L (3.5-5.1)
[2020-05-01 10:25] LABS: Bilirubin,Total 0.5 mg/dl (0.2-1); Globulin 3.8 gm/dl (2.5-4.0); Total Protein 7.6 gm/dl (6.4-8.2)
[2020-05-01] MEDS ORDERED: IOVERSOL 100ml IV PRN (13:30)
--- NOTE | 2020-05-01 13:42 | CT Scan Report ---
CT abd pelvis oral and IV con CT DOSE: 1139.59 mGycm HISTORY: Pain. Nausea. abd pain, vomiting TECHNIQUE: Multiaxial CT images of the abdomen and pelvis were performed following the use of intrave nous and oral contrast. A dose lowering technique was utilized adhering to the principles of ALARA. COMPARISON STUDY: 09/07/2019 FINDINGS: Lung bases remain clear. Small hiatal hernia. Mild fatty replacement of the liver. Kidneys enhance uniformly. No evidence for hydronephrosis. Bowel pattern is consistent with scattered colonic diverticulosis. No evidence for acute diverticulitis. No free fluid within the pelvic cul-de-sac. No rmal appendix. IMPRESSION: 1. Small hiatal hernia. 2. Fatty replacement of the liver. 3. Scattered colonic diverticulosis with no evidence for acute diverticulitis. 4. Normal appendix. ACT 112: Negative or not required by law. The above report was generated using voice recognition software. It may contain grammatical, syntax or spelling errors. Electronically signed by: Colt Sousa M.D. 05/01/2020 1:40 PM
[2020-05-01] MEDS ORDERED: HYDROmorphone INJ 0.5 MG/0.5 ML SYR IV STA (14:18)
--- NOTE | 2020-05-01 15:33 | History & Physical Report ---
Date of Service May 01, 2020 Assessment & Plan (1) Hematemesis: (2) Nausea and vomiting: (3) Abdominal pain: (4) Gastroparesis: -admit to med/surg with tele -Patient presenting from home with reports of abdominal pain, nausea, vomiting, and hematemesis -mildly tachycardic but otherwise stable -Hgb stable at 14.3, no elevation of BUN; recheck H&H at 1900 -Patient reports daily use of ibuprofen, this may be contributing to possible gastritis or bleeding ulcer -S/p Protonix 40 mg IV in the ED, will continue with Protonix 40 mg IV twice daily -Clear liquid diet, n.p.o. after midnight -GI consult, appreciate input. Planning on EGD tomorrow -? If Trulicity is contributing to symptoms, consider discontinuation -After review of outpatient chart, seems like there could be some problems with medication compliance. Resume home medications of dicyclomine and Reglan. -EGD 08/2019 - large amount of food residue was found in the stomach (5) Diabetes mellitus, type 2: -HgbA1c 6.9 11/2019 -Hold oral agents and utilize Lantus and NovoLog per protocol while hospitalized -Due to ongoing GI complaints and noted tachycardia, may need to consider discontinuation of Trulicity (6) HTN (hypertension): -BP controlled, continue lisinopril (7) DVT prophylaxis: -SCDs due to possible hematemesis History of Present Illness Chief Complaint: Nausea, vomiting, abdominal pain Primary Care Provider: Nicko Batron MD 44-year-old male with PMH HTN, IBS, gastroparesis, esophagitis, DM type II on insulin, and other problems listed below who presents the ED for evaluation of nausea, vomiting, abdominal pain. Patient has a longstanding history of recurrent and persistent GI complaints. He reports that about 1 week ago, he developed mid abdominal pain with also associated mid back and bilateral flank pain. He reports pain has been constant and made worse after eating. Yesterday, he reports he developed vomiting with some evidence of bright red and dark red blood. Reports about 5 episodes of such and last episode was in route to the ED. He reports having issues with chronic diarrhea however had a normal bowel movement this morning. Denies bright red bleeding per rectum or dark tarry stools. He reports some episodes of diaphoresis but denies fevers and chills. No chest pain or shortness of breath. Denies lightheadedness, dizziness, diaphoresis, syncopal events. No urinary symptoms. In ED, patient is somewhat tachycardic however otherwise hemodynamically stable. Hgb is stable at 14.3. GI has evaluated the patient who is recommending observation overnight and planning on EGD tomorrow. Patient received IVF, IV Protonix 40 mg, IV Zofran x2 doses, IV morphine x2 doses, and 1 dose of IV Dilaudid. Allergies Allergy/AdvReac Type Severity Reaction Status Date / Time Cephalosporins Allergy Unknown Unknown Verified 05/01/20 09:44 NSAIDS (Non-Steroidal AdvReac Intermediate gastroparesis, Verified 05/01/20 09:44 Anti-Inflamma kidney problems Home Medications Home Medications Medication Instructions Recorded Confirmed Type insulin aspart U-100 [Novolog 12 unit SUBCUT TIDM 06/09/19 05/01/20 History Flexpen U-100 Insulin] pantoprazole [Protonix] 40 mg PO BID 07/06/19 05/01/20 History acetaminophen [Tylenol Arthritis 1,300 mg PO Q12H 08/05/19 05/01/20 History Pain] diclofenac sodium 1 % TOPICAL DIRECTED PRN 08/31/19 05/01/20 History metformin 1,000 mg PO BIDM 09/04/19 05/01/20 History lisinopril 20 mg PO QAM #30 tab 09/10/19 05/01/20 Rx insulin glargine [Lantus Solostar 18 unit SUBCUT BID 01/04/20 05/01/20 History U-100 Insulin] diphenhydramine-acetaminophen 2 tab PO HS PRN 04/19/20 05/01/20 History [Tylenol PM Extra Strength] dulaglutide [Trulicity] 1.5 mg SUBCUT WK 04/19/20 05/01/20 History ibuprofen 400 - 800 mg PO BID 04/19/20 05/01/20 History loperamide [Imodium A-D] 4 mg PO HS 04/19/20 05/01/20 History dicyclomine 10 mg PO QID 05/01/20 05/01/20 History metoclopramide HCl 10 mg PO TIDM 05/01/20 05/01/20 History Past Med/Surg History Medical History Acquired claw toe of left foot (Acute) Acquired claw toe of right foot (Acute) Acquired hallux valgus of right foot (Acute) Adjustment disorder with depressed mood (Inactive) Cardiac murmur A CHILD Deep vein thrombosis 5 YEARS AGO (? REASON/WAS ON ANTICOAGS FOR A SHORT TIME) Depression (Chronic) Diabetes mellitus with diabetic polyneuropathy (Acute) Diabetes mellitus with neurological manifestation (Chronic) "Diabetic neuropathy reported in hands and feet" Diabetes mellitus, type 2 (Chronic) Erectile dysfunction (Inactive) Esophagitis (Inactive) Gastroparesis (Chronic) GERD (gastroesophageal reflux disease) Hallux valgus (acquired), left foot (Acute) History of ventricular tachycardia (Inactive) "nonsustained" HTN (hypertension) (Chronic) Hx of pancreatitis Hypertension (Chronic) IBS (irritable bowel syndrome) (Chronic) Intellectual disability (Inactive) MRSA (methicillin resistant Staphylococcus aureus) carrier (Chronic) Nicotine dependence (Chronic) Obesity (Inactive) Obstructive sleep apnea (Inactive) Osteoarthritis Peripheral neuropathy Surgical History H/O foot surgery LEFT History of arthroscopy LEFT KNEE History of colonoscopy History of esophagogastroduodenoscopy (EGD) History of tonsillectomy and adenoidectomy History of tooth extraction S/P left knee arthroscopy (Resolved) Family History Brother Family history of diabetes mellitus Mother Family history of diabetes mellitus Father Family history of diabetes mellitus Social History Preferred Language: Danish Communication Ability: Effective Assistant Chief Train Dispatcher Required: No Beliefs That Will Affect Care: None Current Living Situation: Family Feels Safe at Home: Yes Smoking Status: Current every day smoker Tobacco Type: cigarettes ; Cigarettes Per Day: 30 ; Second Hand Exposure: No ; Hx Alcohol Use: Yes Alcohol type: beer and hard liquor Alcohol Intake Frequency: Rarely Hx Substance Use: No Review of Systems Review of Systems: ROS per HPI, all other systems reviewed and negative Physical Exam Physical Exam: Please refer to Dr. Richard's addendum for physical exam. Results & Data Results & Data ([facility]) Vital Signs (Past 12 Hours) Vital Signs Temp Pulse Resp BP Pulse Ox 05/01/20 14:30 107 H 17 129/93 94 05/01/20 14:00 105 H 15 160/88 H 92 05/01/20 13:35 113 H 20 170/120 H 92 05/01/20 13:05 107 H 13 169/119 H 94 05/01/20 12:01 111 H 13 145/87 H 97 05/01/20 11:30 107 H 15 149/89 H 94 05/01/20 11:14 112 H 20 150/106 H 94 05/01/20 10:01 115 H 16 137/83 94 05/01/20 09:53 114 H 15 109/82 95 05/01/20 09:13 36.8 C 116 H 22 172/93 H 95 Laboratory Results Short CBC 05/01/20 Range/Units 09:40 WBC 8.12 (4.8-10.8) K/uL Hgb 14.3 (14.0-18.0) g/dL Hct 42.1 (42-52) % Plt Count 239 (130-400) K/uL BMP 05/01/20 09:40 Sodium 137 Potassium 3.7 Chloride 102 Carbon Dioxide 29 BUN 22 H Creatinine 0.94 Glucose 158 H Calcium 9.1 Liver Function 05/01/20 Range/Units 09:40 Total Bilirubin 0.5 (0.2-1) mg/dl AST 23 (15-37) U/L ALT 63 (12-78) U/L Alkaline Phosphatase 62 (45-117) U/L Albumin 3.8 (3.4-5.0) gm/dl Urine 05/01/20 Range/Units 09:30 Urine Color Dark Yellow Urine Appearance Clear (Clear) Urine pH 5.0 (4.5-7.5) Ur Specific [place] 1.043 H (1.000-1.030) Urine Protein 2+ H (Negative) Urine Glucose (UA) 2+ H (Negative) Diagnostic Findings CT ABD/PELVIS IMPRESSION: 1. Small hiatal hernia. 2. Fatty replacement of the liver. 3. Scattered colonic diverticulosis with no evidence for acute diverticulitis. 4. Normal appendix. CXR IMPRESSION: No significant change compared to the prior study. No acute process. Stable mild cardiomegaly. Code Status & VTE Plan VTE Prophylaxis Plan VTE Prophylaxis will be ordered: Yes Supervising Physician Co-Signing Physician Notes Patient is a 44-year-old male with history of diabetes mellitus, gastroparesis, IBS, esophagitis and other medical problems presents with history of nausea, vomiting, abdominal pain which has been gradually worsening since 1 week duration. He also noted to have bright red and dark colored blood in the vomitus yesterday. States having chronic diarrhea but denies any blood in stools. He had upper endoscopy previously suggestive of esophagitis. Patient also had history of large amount of food residue on prior EGD. CT abdomen showed small hiatal hernia, fatty liver, scattered colonic diverticulosis. He denies any odynophagia. He admits to taking ibuprofen on a regular basis for chronic back pain. Physical Exam: Vitals signs as noted above General Appearance:Obese, no apparent distress Head: normocephalic, Atraumatic Eyes: normal inspection, EOMI Neck: supple, Trachea midline Respiratory/Chest: Normal breath sounds, CTA, No accessory muscle use Cardiovascular: S1, S2, sinus tachycardia, No murmur Abdomen/GI:Soft, mild generalized tender, no guarding/rigidity, Bowel sounds present Extremities/Musculoskelatal:normal inspection, no edema Neurologic/Psych:AAOX3, grossly no focal neurological deficits Skin: normal color, warm Patient is admitted for management of gastroparesis, hematemesis DD esophagitis, gastritis, PUD Agree with IV PPI, IV fluids, bowel rest BUN not significantly elevated Planned for EGD in AM Avoid aspirin, NSAIDs Will discontinue Trulicity given concern for worsening GI symptoms Appreciate GI input Monitor H&H Pain control I personally reviewed the record. Patient is interviewed and examined at bedside. Patient's care is coordinated with Nely Ca PREPRINT ANALYST. Please refer to the documentation above for details of patient's presentation and for discussion of other issues. (1) Hematemesis Nausea presence: unspecified Qualified Code(s): K92.0 - Hematemesis
[2020-05-01 16:08] LABS: Amphetamines+Metham, Urine Neg (Neg); Barbiturates, Urine Neg (Neg); Benzodiazepine, Urine Neg (Neg); Cocaine, Urine Neg (Neg); MDMA (Ecstacy), Urine Neg (Neg); Methadone, Urine Neg (Neg); Opiate, Urine Neg (Neg); Phencyclidine, Urine Neg (Neg)
[2020-05-01] MEDS ORDERED: GLUCAGON FOR INJ 1 MG VIAL SQ PRN (16:23)
[2020-05-01] MEDS ORDERED: GLUCOSE 40% GEL 15 GM TUBE PO PRN (16:23)
[2020-05-01] MEDS ORDERED: SODIUM CHLORIDE 0.9% 250 ML IV PRN (16:23)
[2020-05-01] MEDS ORDERED: DEXTROSE 50% 50 ML SYRINGE IV PRN (16:23)
[2020-05-01] MEDS ORDERED: GLUCOSE 10 TABS/TUBE PO PRN (16:23)
[2020-05-01] MEDS ORDERED: PROMETHAZINE HCL 12.5 MG in SODIUM CHLORIDE 0.9% 50 ML IV PRN (16:23)
[2020-05-01] MEDS ORDERED: CARBOHYDRATES FOR HYPOGLYCEMIA PO PRN (16:23)
[2020-05-01] MEDS: SODIUM CHLORIDE 0.9% 1000ML 1,000 ML IV SCH (16:50)
[2020-05-01] MEDS: DICYCLOMINE HCL 10 MG CAP PO SCH ×2 (17:34→20:49)
[2020-05-01] MEDS: METOCLOPRAMIDE HCL 10 MG TABLET PO SCH (17:35)
[2020-05-01] MEDS: INSULIN ASPART 100 UNITS/ML 3 ML PEN SC SCH ×2 (17:41→20:50)
[2020-05-01 18:52] LABS: Hematocrit (blood only) 37.4 % (42-52); Hemoglobin 12.8 g/dL (14.0-18.0)
--- NOTE | 2020-05-01 19:20 | Electrocardiogram Report ---
Test Reason : Blood Pressure : / mmHG Vent. Rate : 108 BPM Atrial Rate : 108 BPM P-R Int : 154 ms QRS Dur : 104 ms QT Int : 346 ms P-R-T Axes : 066 054 043 degrees QTc Int : 463 ms Sinus tachycardia Abnormal ECG When compared with ECG of 19-APR-2020 21:03, No significant change was found Confirmed by Nba Wallace ([id number]) on 05/01/2020 7:20:41 PM Referred By: REFERRED SELF Confirmed By:David Wallace
[2020-05-01] MEDS: PANTOprazole 40 MG in SYRINGE 0 ML IV SCH (20:50)
[2020-05-01] MEDS: INSULIN GLARGINE SOLOSTAR 100 UNITS/ML 3 ML PEN SC SCH (20:50)
[2020-05-02] MEDS ORDERED: Nursing to Pharmacy Communication SCH ×2 (00:30→16:15)
[2020-05-02] MEDS: SODIUM CHLORIDE 0.9% 1000ML 1,000 ML IV SCH ×3 (02:25→23:41)
[2020-05-02] MEDS: MoRPHine SULFATE 2 MG/ML CARP IV PRN (03:21)
[2020-05-02] MEDS: INSULIN ASPART 100 UNITS/ML 3 ML PEN SC SCH ×4 (05:57→20:41)
[2020-05-02] MEDS: ACETAMINOPHEN 325 MG TAB PO PRN ×2 (06:06→12:17)
[2020-05-02 06:23] LABS: Hematocrit (blood only) 40.4 % (42-52); Hemoglobin 13.5 g/dL (14.0-18.0); Mean Corpuscular Hemoglobin 28.2 pg (25-34); Mean Corpuscular Hgb Conc 33.4 g/dL (32-36); Mean Corpuscular Volume 84.3 fL (80-100); Platelet Count 231 K/uL (130-400); RDW Standard Deviation 39.6 fL (36.4-46.3); Red Blood Count 4.79 M/uL (4.7-6.1); White Blood Count 9.43 K/uL (4.8-10.8)
[2020-05-02 06:59] LABS: BUN Creatinine Ratio 15.8 (10-20); Calcium 8.5 mg/dl (8.5-10.1); Creatinine Clr Calc Pharmacy 174.3 ml/min; Est GFR (African American) 124.8; Est GFR (Non-African American) 107.7; Potassium 3.9 mmol/L (3.5-5.1)
--- NOTE | 2020-05-02 07:12 | Hospitalist Progress Note ---
Date of Service May 02, 2020 Assessment & Plan (1) Hematemesis: (2) Nausea and vomiting: (3) Abdominal pain: (4) Gastroparesis: -admitted to med/surg with tele -Patient presenting from home with reports of abdominal pain, nausea, vomiting, and reported hematemesis -mildly tachycardic but otherwise stable -Hgb stable at 14.3, no elevation of BUN; recheck H&H at 1900 -Patient reports daily use of ibuprofen, this may be contributing to possible gastritis or bleeding ulcer -S/p Protonix 40 mg IV in the ED, will continue with Protonix 40 mg IV twice daily -Clear liquid diet, n.p.o. after midnight -GI consult, appreciate input. Patient is now status post EGD (05/02/20) which was overall unremarkable, biopsies were obtained. -After review of outpatient chart, seems like there could be some problems with medication compliance. Resume home medications of dicyclomine and Reglan. -EGD 08/2019 - large amount of food residue was found in the stomach -Also concerned about possible metformin causing abdominal discomfort, recommend to hold metformin for next 4 to 6 weeks (5) Diabetes mellitus, type 2: -HgbA1c 6.9 11/2019 -Hold oral agents and utilize Lantus and NovoLog per protocol while hospitalized -Due to ongoing GI complaints and noted tachycardia, may need to consider discontinuation of Trulicity, GI also recommend to hold metformin for next 4 to 6 weeks Low back pain -Patient is complaining of lower back pain, says he has degenerative disease -We will x-ray lower back -Please lidocaine patch (6) HTN (hypertension): -BP controlled, continue lisinopril (7) DVT prophylaxis: -SCDs due to possible hematemesis Admission and Anticipated Discharge Date Admission Date: May 01, 2020 Subjective Patient is laying in bed, complaining of persistent abdominal pain and back pain. Reported hematemesis for which she was admitted to the hospital. GI consulted. Did upper endoscopy earlier today, which was unremarkable, biopsies were obtained. Recommend to hold metformin for now. Denies black/bloody stool Patient now complains also about lower back pain, says that he has history of degenerative disease. We will x-ray lower back, will apply lidocaine patches. Review of Systems Review of Systems: All systems reviewed & are unremarkable except as noted in HPI & below Constitutional: no fever and no chills Respiratory: no cough and no dyspnea Cardiovascular: no chest pain and no palpitations Gastrointestinal: + abdominal pain and + nausea; no vomiting Physical Exam Physical Exam: General Appearance: Middle-aged obese male, in some distress due to abdominal/back pain, continues to move around in bed Head: normocephalic, Atraumatic Eyes: normal inspection, EOMI Neck: supple, Trachea midline Respiratory/Chest: Normal breath sounds, CTA, No accessory muscle use Cardiovascular: S1, S2, mild tachycardia, No murmur Abdomen/GI:Soft, mild generalized tender, no guarding/rigidity, Bowel sounds present Back: Tender to palpation in lumbar area spinal and bilateral paraspinal muscle area Extremities/Musculoskelatal:normal inspection, no edema, moves extremities spontaneously Neurologic/Psych:AAOX3, speech fluent, no facial symmetry, moves extremities spontaneously Skin: normal color, warm Results & Data Results & [facility]) Vital Signs (Past 12 Hours) Vital Signs Temp Pulse Pulse Resp BP Pulse Ox 05/02/20 04:11 36.9 C 102 H 20 161/83 H 96 05/01/20 23:41 89 05/01/20 23:00 36.6 C 88 18 134/82 95 05/01/20 19:38 36.4 C L 98 H 18 134/73 97 Laboratory Results 05/02/20 05/02/20 05/02/20 Range/Units 06:04 06:04 06:04 WBC 9.43 (4.8-10.8) K/uL RBC 4.79 (4.7-6.1) M/uL Hgb 13.5 L (14.0-18.0) g/dL Hct 40.4 L (42-52) % MCV 84.3 (80-100) fL MCH 28.2 (25-34) pg MCHC 33.4 (32-36) g/dL RDW Std Deviation 39.6 (36.4-46.3) fL RDW Coeff of Abiodun 13.0 (11.5-14.5) % Plt Count 231 (130-400) K/uL MPV 9.0 (7.4-10.4) fL Immature Gran % (Auto) % Neut % (Auto) % Lymph % (Auto) % Dickey % (Auto) % Eos % (Auto) % Baso % (Auto) % Neut # (Auto) (1.4-6.5) K/uL Lymph # (Auto) (1.2-3.4) K/uL Dickey # (Auto) (0.11-0.59) K/uL Eos # (Auto) (0-0.5) K/uL Baso # (Auto) (0-0.2) K/uL Immature Gran # (Auto) (0.00-0.02) K/uL PT (9.0-12.0) Seconds INR (0.9-1.1) APTT (21.0-31.0) Seconds PTT Ratio Sodium 137 (136-145) mmol/L Potassium 3.9 (3.5-5.1) mmol/L Chloride 106 (98-107) mmol/L Carbon Dioxide 25 (21-32) mmol/L Anion Gap 6.0 (3-11) BUN 12 (7-18) mg/dl Creatinine 0.79 (0.6-1.4) mg/dl Est Cr Clr Drug Dosing 174.3 ml/min Est GFR ( Amer) 124.8 Est GFR (Non-Af Amer) 107.7 BUN/Creatinine Ratio 15.8 (10-20) Glucose 174 H (70-99) mg/dl POC Glucose (70-99) mg/dl Estimat Average Glucose Pending Hemoglobin A1c Pending Calcium 8.5 (8.5-10.1) mg/dl Magnesium (1.8-2.4) mg/dl Total Bilirubin (0.2-1) mg/dl AST (15-37) U/L ALT (12-78) U/L Alkaline Phosphatase (45-117) U/L Total Protein (6.4-8.2) gm/dl Albumin (3.4-5.0) gm/dl Globulin (2.5-4.0) gm/dl Albumin/Globulin Ratio (0.9-2) Lipase (73-393) U/L Urine Color Urine Appearance (Clear) Urine pH (4.5-7.5) Ur Specific [place] (1.000-1.030) Urine Protein (Negative) Urine Glucose (UA) (Negative) Urine Ketones (Negative) Urine Blood (Negative) Urine Nitrite (Negative) Urine Bilirubin (Negative) Urine Urobilinogen (Negative) Ur Leukocyte Esterase (Negative) Urine WBC (Auto) (0-5) /hpf Urine RBC (Auto) (0-4) /hpf U Hyaline Cast (Auto) (0-5) /lpf U Epithel Cells (Auto) (0-5) /lpf Urine Bacteria (Auto) (Negative) Urine Opiates Screen (Neg) Ur Methadone, Qual (Neg) Urine Barbiturates (Neg) Ur Phencyclidine (PCP) (Neg) U Amphetamin/Meth Scrn (Neg) MDMA (Ecstasy) Screen (Neg) U Benzodiazepines Scrn (Neg) Ur Cocaine Metabolite (Neg) U Marijuana (THC) Screen (Neg) Blood Type Antibody Screen Crossmatch 05/02/20 05/01/20 05/01/20 Range/Units 05:55 20:44 18:42 WBC (4.8-10.8) K/uL RBC (4.7-6.1) M/uL Hgb 12.8 L (14.0-18.0) g/dL Hct 37.4 L (42-52) % MCV (80-100) fL MCH (25-34) pg MCHC (32-36) g/dL RDW Std Deviation (36.4-46.3) fL RDW Coeff of Abiodun (11.5-14.5) % Plt Count (130-400) K/uL MPV (7.4-10.4) fL Immature Gran % (Auto) % Neut % (Auto) % Lymph % (Auto) % Dickey % (Auto) % Eos % (Auto) % Baso % (Auto) % Neut # (Auto) (1.4-6.5) K/uL Lymph # (Auto) (1.2-3.4) K/uL Dickey # (Auto) (0.11-0.59) K/uL Eos # (Auto) (0-0.5) K/uL Baso # (Auto) (0-0.2) K/uL Immature Gran # (Auto) (0.00-0.02) K/uL PT (9.0-12.0) Seconds INR (0.9-1.1) APTT (21.0-31.0) Seconds PTT Ratio Sodium (136-145) mmol/L Potassium (3.5-5.1) mmol/L Chloride (98-107) mmol/L Carbon Dioxide (21-32) mmol/L Anion Gap (3-11) BUN (7-18) mg/dl Creatinine (0.6-1.4) mg/dl Est Cr Clr Drug Dosing ml/min Est GFR ( Amer) Est GFR (Non-Af Amer) BUN/Creatinine Ratio (10-20) Glucose (70-99) mg/dl POC Glucose 180 H 139 H (70-99) mg/dl Estimat Average Glucose Hemoglobin A1c Calcium (8.5-10.1) mg/dl Magnesium (1.8-2.4) mg/dl Total Bilirubin (0.2-1) mg/dl AST (15-37) U/L ALT (12-78) U/L Alkaline Phosphatase (45-117) U/L Total Protein (6.4-8.2) gm/dl Albumin (3.4-5.0) gm/dl Globulin (2.5-4.0) gm/dl Albumin/Globulin Ratio (0.9-2) Lipase (73-393) U/L Urine Color Urine Appearance (Clear) Urine pH (4.5-7.5) Ur Specific [place] (1.000-1.030) Urine Protein (Negative) Urine Glucose (UA) (Negative) Urine Ketones (Negative) Urine Blood (Negative) Urine Nitrite (Negative) Urine Bilirubin (Negative) Urine Urobilinogen (Negative) Ur Leukocyte Esterase (Negative) Urine WBC (Auto) (0-5) /hpf Urine RBC (Auto) (0-4) /hpf U Hyaline Cast (Auto) (0-5) /lpf U Epithel Cells (Auto) (0-5) /lpf Urine Bacteria (Auto) (Negative) Urine Opiates Screen (Neg) Ur Methadone, Qual (Neg) Urine Barbiturates (Neg) Ur Phencyclidine (PCP) (Neg) U Amphetamin/Meth Scrn (Neg) MDMA (Ecstasy) Screen (Neg) U Benzodiazepines Scrn (Neg) Ur Cocaine Metabolite (Neg) U Marijuana (THC) Screen (Neg) Blood Type Antibody Screen Crossmatch 05/01/20 05/01/20 05/01/20 Range/Units 16:23 09:40 09:40 WBC (4.8-10.8) K/uL RBC (4.7-6.1) M/uL Hgb (14.0-18.0) g/dL Hct (42-52) % MCV (80-100) fL MCH (25-34) pg MCHC (32-36) g/dL RDW Std Deviation (36.4-46.3) fL RDW Coeff of Abiodun (11.5-14.5) % Plt Count (130-400) K/uL MPV (7.4-10.4) fL Immature Gran % (Auto) % Neut % (Auto) % Lymph % (Auto) % Dickey % (Auto) % Eos % (Auto) % Baso % (Auto) % Neut # (Auto) (1.4-6.5) K/uL Lymph # (Auto) (1.2-3.4) K/uL Dickey # (Auto) (0.11-0.59) K/uL Eos # (Auto) (0-0.5) K/uL Baso # (Auto) (0-0.2) K/uL Immature Gran # (Auto) (0.00-0.02) K/uL PT 10.6 (9.0-12.0) Seconds INR 1.0 (0.9-1.1) APTT 27.1 (21.0-31.0) Seconds PTT Ratio 1.0 Sodium (136-145) mmol/L Potassium (3.5-5.1) mmol/L Chloride (98-107) mmol/L Carbon Dioxide (21-32) mmol/L Anion Gap (3-11) BUN (7-18) mg/dl Creatinine (0.6-1.4) mg/dl Est Cr Clr Drug Dosing ml/min Est GFR ( Amer) Est GFR (Non-Af Amer) BUN/Creatinine Ratio (10-20) Glucose (70-99) mg/dl POC Glucose 145 H (70-99) mg/dl Estimat Average Glucose Hemoglobin A1c Calcium (8.5-10.1) mg/dl Magnesium 1.9 (1.8-2.4) mg/dl Total Bilirubin (0.2-1) mg/dl AST (15-37) U/L ALT (12-78) U/L Alkaline Phosphatase (45-117) U/L Total Protein (6.4-8.2) gm/dl Albumin (3.4-5.0) gm/dl Globulin (2.5-4.0) gm/dl Albumin/Globulin Ratio (0.9-2) Lipase (73-393) U/L Urine Color Urine Appearance (Clear) Urine pH (4.5-7.5) Ur Specific [place] (1.000-1.030) Urine Protein (Negative) Urine Glucose (UA) (Negative) Urine Ketones (Negative) Urine Blood (Negative) Urine Nitrite (Negative) Urine Bilirubin (Negative) Urine Urobilinogen (Negative) Ur Leukocyte Esterase (Negative) Urine WBC (Auto) (0-5) /hpf Urine RBC (Auto) (0-4) /hpf U Hyaline Cast (Auto) (0-5) /lpf U Epithel Cells (Auto) (0-5) /lpf Urine Bacteria (Auto) (Negative) Urine Opiates Screen (Neg) Ur Methadone, Qual (Neg) Urine Barbiturates (Neg) Ur Phencyclidine (PCP) (Neg) U Amphetamin/Meth Scrn (Neg) MDMA (Ecstasy) Screen (Neg) U Benzodiazepines Scrn (Neg) Ur Cocaine Metabolite (Neg) U Marijuana (THC) Screen (Neg) Blood Type Antibody Screen Crossmatch 05/01/20 05/01/20 05/01/20 Range/Units 09:40 09:40 09:40 WBC 8.12 (4.8-10.8) K/uL RBC 5.00 (4.7-6.1) M/uL Hgb 14.3 (14.0-18.0) g/dL Hct 42.1 (42-52) % MCV 84.2 (80-100) fL MCH 28.6 (25-34) pg MCHC 34.0 (32-36) g/dL RDW Std Deviation 39.4 (36.4-46.3) fL RDW Coeff of Abiodun 13.0 (11.5-14.5) % Plt Count 239 (130-400) K/uL MPV 9.0 (7.4-10.4) fL Immature Gran % (Auto) 1.1 % Neut % (Auto) 64.7 % Lymph % (Auto) 20.6 % Dickey % (Auto) 8.5 % Eos % (Auto) 4.6 % Baso % (Auto) 0.5 % Neut # (Auto) 5.26 (1.4-6.5) K/uL Lymph # (Auto) 1.67 (1.2-3.4) K/uL Dickey # (Auto) 0.69 H (0.11-0.59) K/uL Eos # (Auto) 0.37 (0-0.5) K/uL Baso # (Auto) 0.04 (0-0.2) K/uL Immature Gran # (Auto) 0.09 H (0.00-0.02) K/uL PT (9.0-12.0) Seconds INR (0.9-1.1) APTT (21.0-31.0) Seconds PTT Ratio Sodium 137 (136-145) mmol/L Potassium 3.7 (3.5-5.1) mmol/L Chloride 102 (98-107) mmol/L Carbon Dioxide 29 (21-32) mmol/L Anion Gap 5.0 (3-11) BUN 22 H (7-18) mg/dl Creatinine 0.94 (0.6-1.4) mg/dl Est Cr Clr Drug Dosing 147.1 ml/min Est GFR ( Amer) 112.2 Est GFR (Non-Af Amer) 96.8 BUN/Creatinine Ratio 23.3 H (10-20) Glucose 158 H (70-99) mg/dl POC Glucose (70-99) mg/dl Estimat Average Glucose Hemoglobin A1c Calcium 9.1 (8.5-10.1) mg/dl Magnesium (1.8-2.4) mg/dl Total Bilirubin 0.5 (0.2-1) mg/dl AST 23 (15-37) U/L ALT 63 (12-78) U/L Alkaline Phosphatase 62 (45-117) U/L Total Protein 7.6 (6.4-8.2) gm/dl Albumin 3.8 (3.4-5.0) gm/dl Globulin 3.8 (2.5-4.0) gm/dl Albumin/Globulin Ratio 1.0 (0.9-2) Lipase 109 (73-393) U/L Urine Color Urine Appearance (Clear) Urine pH (4.5-7.5) Ur Specific [place] (1.000-1.030) Urine Protein (Negative) Urine Glucose (UA) (Negative) Urine Ketones (Negative) Urine Blood (Negative) Urine Nitrite (Negative) Urine Bilirubin (Negative) Urine Urobilinogen (Negative) Ur Leukocyte Esterase (Negative) Urine WBC (Auto) (0-5) /hpf Urine RBC (Auto) (0-4) /hpf U Hyaline Cast (Auto) (0-5) /lpf U Epithel Cells (Auto) (0-5) /lpf Urine Bacteria (Auto) (Negative) Urine Opiates Screen (Neg) Ur Methadone, Qual (Neg) Urine Barbiturates (Neg) Ur Phencyclidine (PCP) (Neg) U Amphetamin/Meth Scrn (Neg) MDMA (Ecstasy) Screen (Neg) U Benzodiazepines Scrn (Neg) Ur Cocaine Metabolite (Neg) U Marijuana (THC) Screen (Neg) Blood Type O Positive Antibody Screen NEGATIVE Crossmatch See Detail 05/01/20 05/01/20 Range/Units 09:30 09:30 WBC (4.8-10.8) K/uL RBC (4.7-6.1) M/uL Hgb (14.0-18.0) g/dL Hct (42-52) % MCV (80-100) fL MCH (25-34) pg MCHC (32-36) g/dL RDW Std Deviation (36.4-46.3) fL RDW Coeff of Abiodun (11.5-14.5) % Plt Count (130-400) K/uL MPV (7.4-10.4) fL Immature Gran % (Auto) % Neut % (Auto) % Lymph % (Auto) % Dickey % (Auto) % Eos % (Auto) % Baso % (Auto) % Neut # (Auto) (1.4-6.5) K/uL Lymph # (Auto) (1.2-3.4) K/uL Dickey # (Auto) (0.11-0.59) K/uL Eos # (Auto) (0-0.5) K/uL Baso # (Auto) (0-0.2) K/uL Immature Gran # (Auto) (0.00-0.02) K/uL PT (9.0-12.0) Seconds INR (0.9-1.1) APTT (21.0-31.0) Seconds PTT Ratio Sodium (136-145) mmol/L Potassium (3.5-5.1) mmol/L Chloride (98-107) mmol/L Carbon Dioxide (21-32) mmol/L Anion Gap (3-11) BUN (7-18) mg/dl Creatinine (0.6-1.4) mg/dl Est Cr Clr Drug Dosing ml/min Est GFR ( Amer) Est GFR (Non-Af Amer) BUN/Creatinine Ratio (10-20) Glucose (70-99) mg/dl POC Glucose (70-99) mg/dl Estimat Average Glucose Hemoglobin A1c Calcium (8.5-10.1) mg/dl Magnesium (1.8-2.4) mg/dl Total Bilirubin (0.2-1) mg/dl AST (15-37) U/L ALT (12-78) U/L Alkaline Phosphatase (45-117) U/L Total Protein (6.4-8.2) gm/dl Albumin (3.4-5.0) gm/dl Globulin (2.5-4.0) gm/dl Albumin/Globulin Ratio (0.9-2) Lipase (73-393) U/L Urine Color Dark Yellow Urine Appearance Clear (Clear) Urine pH 5.0 (4.5-7.5) Ur Specific [place] 1.043 H (1.000-1.030) Urine Protein 2+ H (Negative) Urine Glucose (UA) 2+ H (Negative) Urine Ketones Trace H (Negative) Urine Blood Negative (Negative) Urine Nitrite Negative (Negative) Urine Bilirubin 1+ H (Negative) Urine Urobilinogen Negative (Negative) Ur Leukocyte Esterase Trace H (Negative) Urine WBC (Auto) 1-5 (0-5) /hpf Urine RBC (Auto) 5-10 H (0-4) /hpf U Hyaline Cast (Auto) 1-5 (0-5) /lpf U Epithel Cells (Auto) >30 H (0-5) /lpf Urine Bacteria (Auto) Negative (Negative) Urine Opiates Screen Neg (Neg) Ur Methadone, Qual Neg (Neg) Urine Barbiturates Neg (Neg) Ur Phencyclidine (PCP) Neg (Neg) U Amphetamin/Meth Scrn Neg (Neg) MDMA (Ecstasy) Screen Neg (Neg) U Benzodiazepines Scrn Neg (Neg) Ur Cocaine Metabolite Neg (Neg) U Marijuana (THC) Screen Neg (Neg) Blood Type Antibody Screen Crossmatch (1) Hematemesis Nausea presence: unspecified Qualified Code(s): K92.0 - Hematemesis
[2020-05-02] MEDS: METOCLOPRAMIDE HCL 10 MG TABLET PO SCH ×3 (07:41→16:40)
[2020-05-02] MEDS: DICYCLOMINE HCL 10 MG CAP PO SCH ×4 (07:42→20:40)
[2020-05-02] MEDS: lisinopriL 20 MG TAB PO SCH (07:42)
[2020-05-02] MEDS: PANTOprazole 40 MG in SYRINGE 0 ML IV SCH ×2 (07:42→20:42)
[2020-05-02] MEDS: INSULIN GLARGINE SOLOSTAR 100 UNITS/ML 3 ML PEN SC SCH ×2 (08:44→20:40)
--- NOTE | 2020-05-02 09:15 | Gastroenterology Progress Note ---
Date of Service May 02, 2020 Assessment & Plan (1) Gastroparesis: 44 year old male with gastroparesis sent to the ED for GI clinic for evaluation of hematemesis. Endorses generalized abd pain, vomiting since Wednesday with development of coffee ground emesis and hematemesis yesterday, last episode of bloody emesis was en route to [facility]. No further emesis since admission, persistent pain and nausea. NPO for EGD. Please see consultation for additional recommendations. Thank you for allowing us to participate in the care of this patient. Please call with any acute changes, questions or concerns. Please see addendum below with additional recommendation from my supervising physician. Admission and Anticipated Discharge Date Admission Date: May 01, 2020 Supervising Physician Co-Signing Physician Notes Patient for upper endoscopy today. He does report having continued back discomfort in addition to epigastric discomfort. He has had no recurrent emesis or hematemesis overnight. There is been no significant drop in his hemoglobin or hematocrit. Subjective persistent abd pain nausea no emesis since admission no further hematemesis or coffee ground emesis since ED Denies black/bloody stool NPO Physical Exam Constitutional: well developed, well nourished and + obese; no acute distress Neck: trachea midline Respiratory: normal respiratory effort Cardiovascular: Rate/Rhythm: regular rate and regular rhythm Gastrointestinal (Abdomen): Inspection/Auscultation: normal bowel sounds Percussion/Palpation: + abdomen tender and abdomen soft; no guarding, abdomen not rigid and no abdominal mass Skin: no rashes, warm and dry Results & Data ([facility]) Vital Signs (Past 12 Hours) Vital Signs Temp Pulse Pulse Resp BP BP Pulse Ox 05/02/20 08:40 162/90 H 05/02/20 07:37 36.8 C 107 H 20 185/99 H 176/111 H 93 05/02/20 04:11 36.9 C 102 H 20 161/83 H 96 05/01/20 23:41 89 05/01/20 23:00 36.6 C 88 18 134/82 95
--- NOTE | 2020-05-02 09:56 | Anesthesiology Consultation ---
Date of Service May 02, 2020 Assessment & Plan Chart Review Chart Review: Acceptable Risk for Surgery Consults Requested none ASA ASA3 Proposed Anesthesia Anesthesia Type: MAC Risk / Benefits Reviewed With: PT / POA / Parent / Guardian, Accepts Plan and Informed Consent Obtained History Surgery Operation Date: 05/02/20 15:40 Proposed Procedures p Esophagogastroduodenoscopy Dr Robert Jones Height/Weight Height: 6 ft 3 in Weight: 136.9 kg Allergies Allergy/AdvReac Type Severity Reaction Status Date / Time Cephalosporins Allergy Unknown Unknown Verified 05/01/20 09:44 NSAIDS (Non-Steroidal AdvReac Intermediate gastroparesis, Verified 05/01/20 09:44 Anti-Inflamma kidney problems Medications Home Medications Medication Instructions Recorded Confirmed Last Taken insulin aspart U-100 [Novolog 12 unit SUBCUT TIDM 06/09/19 05/01/20 05/01/20 Flexpen U-100 Insulin] pantoprazole [Protonix] 40 mg PO BID 07/06/19 05/01/20 05/01/20 acetaminophen [Tylenol Arthritis 1,300 mg PO Q12H 08/05/19 05/01/20 04/30/20 Pain] diclofenac sodium 1 % TOPICAL DIRECTED PRN 08/31/19 05/01/20 04/30/20 metformin 1,000 mg PO BIDM 09/04/19 05/01/20 05/01/20 lisinopril 20 mg PO QAM #30 tab 09/10/19 05/01/20 05/01/20 insulin glargine [Lantus Solostar 18 unit SUBCUT BID 01/04/20 05/01/20 05/01/20 U-100 Insulin] diphenhydramine-acetaminophen 2 tab PO HS PRN 04/19/20 05/01/20 Unknown [Tylenol PM Extra Strength] dulaglutide [Trulicity] 1.5 mg SUBCUT WK 04/19/20 05/01/20 04/17/20 ibuprofen 400 - 800 mg PO BID 04/19/20 05/01/20 04/19/20 09:00 400 mg loperamide [Imodium A-D] 4 mg PO HS 04/19/20 05/01/20 04/30/20 dicyclomine 10 mg PO QID 07/15/20 07/15/20 Unknown metoclopramide HCl 10 mg PO TIDM 05/01/20 05/01/20 Unknown Active Medications Generic Name Dose Route Start Last Admin Trade Name Freq PRN Reason Stop Dose Admin Acetaminophen 650 mg 05/01/20 16:23 05/02/20 06:06 Tylenol PO 05/31/20 16:22 650 mg Q4H PRN Administration pain/fever Dicyclomine HCl 10 mg 05/01/20 17:00 05/02/20 07:42 Bentyl PO 05/31/20 16:59 10 mg QID SOPHIA Administration Sodium Chloride 1,000 mls @ 100 mls/hr 05/01/20 16:23 05/02/20 02:25 Nss 1000ml IV 05/31/20 16:22 100 mls/hr .Q10H SOPHIA Administration Promethazine HCl 12.5 mg/ 50.5 mls @ 202 mls/hr 05/01/20 16:23 05/02/20 06:14 Sodium Chloride IV 05/31/20 16:22 Infused Q6H PRN Infusion Nausea And Vomiting Pantoprazole Sodium 40 mg/ 10 mls @ 5 mls/min 05/01/20 21:00 05/02/20 07:42 Syringe IV 05/31/20 20:59 5 mls/min BID SOPHIA Administration Insulin Aspart 0 units 05/02/20 06:00 05/02/20 05:57 Novolog Flexpen SC 06/01/20 05:59 2 units Q6 SOPHIA Administration Insulin Glargine 10 units 05/01/20 21:00 05/02/20 08:44 Lantus Solostar Pen SC 05/31/20 20:59 10 units BID SOPHIA Administration Lisinopril 20 mg 05/02/20 09:00 05/02/20 07:42 Zestril PO 06/01/20 08:59 20 mg QAM SOPHIA Administration Metoclopramide HCl 10 mg 05/01/20 17:00 05/02/20 07:41 Reglan PO 05/31/20 16:59 10 mg TIDM SOPHIA Administration Morphine Sulfate 2 mg 05/01/20 16:23 05/02/20 03:21 Morphine Sulfate IV 05/15/20 16:22 2 mg Q4H PRN Administration Pain Past Medical History Medical History Acquired claw toe of left foot (Acute) Acquired claw toe of right foot (Acute) Acquired hallux valgus of right foot (Acute) Adjustment disorder with depressed mood (Inactive) Cardiac murmur A CHILD Deep vein thrombosis 5 YEARS AGO (? REASON/WAS ON ANTICOAGS FOR A SHORT TIME) Depression (Chronic) Diabetes mellitus with diabetic polyneuropathy (Acute) Diabetes mellitus with neurological manifestation (Chronic) "Diabetic neuropathy reported in hands and feet" Diabetes mellitus, type 2 (Chronic) Erectile dysfunction (Inactive) Esophagitis (Inactive) Gastroparesis (Chronic) GERD (gastroesophageal reflux disease) Hallux valgus (acquired), left foot (Acute) History of ventricular tachycardia (Inactive) "nonsustained" HTN (hypertension) (Chronic) Hx of pancreatitis Hypertension (Chronic) IBS (irritable bowel syndrome) (Chronic) Intellectual disability (Inactive) MRSA (methicillin resistant Staphylococcus aureus) carrier (Chronic) Nicotine dependence (Chronic) Obesity (Inactive) Obstructive sleep apnea (Inactive) Osteoarthritis Peripheral neuropathy Exercise / Class Metabolic Activity II 4-5 Yardwork/Stairs/Walk up hill Past Family History Family History Brother Family history of diabetes mellitus Mother Family history of diabetes mellitus Father Family history of diabetes mellitus Past Surgical History Surgical History H/O foot surgery LEFT History of arthroscopy LEFT KNEE History of colonoscopy History of esophagogastroduodenoscopy (EGD) History of tonsillectomy and adenoidectomy History of tooth extraction S/P left knee arthroscopy (Resolved) Past Anesthesia History No Hx of Anesthesia Complications and No Family Hx of Anesthesia Complications History of PONV No Hx of PONV and No Hx of Motion Sickness Social History Smoking Status: Current every day smoker tobacco type: cigarettes Smoking cigarettes per day: 1.5 ppd Hx Alcohol Use: Yes Alcohol type: beer and hard liquor alcohol intake frequency: holidays/special occasions only Hx Substance Use: No substance use type: does not use Physical Exam Vital Signs Last Vital Signs Temp 98.2 F 05/02/20 07:37 Pulse 110 H 05/02/20 09:58 Resp 20 05/02/20 07:37 BP 162/90 H 05/02/20 08:40 Pulse Ox 93 05/02/20 07:37 ENMT Mouth: no dentition abnormality Thyromental Distance: > or= 3.5 Finger Breadths Mallampati Class: II Neck normal visual inspection Respiratory normal respiratory effort Auscultation: lungs clear to auscultation bilaterally Cardiovascular Rate/Rhythm: regular rhythm and + tachycardic Testing Laboratory Results 05/02/20 06:04 05/02/20 06:04 PT 10.6 Seconds (9.0-12.0) 05/01/20 09:40 INR 1.0 (0.9-1.1) 05/01/20 09:40 APTT 27.1 Seconds (21.0-31.0) 05/01/20 09:40 Urine Color Dark Yellow 05/01/20 09:30 Urine Appearance Clear (Clear) 05/01/20 09:30 Urine pH 5.0 (4.5-7.5) 05/01/20 09:30 Ur Specific [place] 1.043 (1.000-1.030) H 05/01/20 09:30 Urine Protein 2+ (Negative) H 05/01/20 09:30 Urine Glucose (UA) 2+ (Negative) H 05/01/20 09:30 Urine Ketones Trace (Negative) H 05/01/20 09:30 Urine Nitrite Negative (Negative) 05/01/20 09:30 Ur Leukocyte Esterase Trace (Negative) H 05/01/20 09:30 Urine WBC (Auto) 1-5 /hpf (0-5) 05/01/20 09:30 Urine RBC (Auto) 5-10 /hpf (0-4) H 05/01/20 09:30 U Hyaline Cast (Auto) 1-5 /lpf (0-5) 05/01/20 09:30 U Epithel Cells (Auto) >30 /lpf (0-5) H 05/01/20 09:30 Urine Bacteria (Auto) Negative (Negative) 05/01/20 09:30 Blood Type O Positive 05/01/20 09:40 Antibody Screen NEGATIVE 05/01/20 09:40 05/02/20 05/02/20 07:34 05:55 POC Glucose 186 H 180 H Electrocardiogram Date: 05/01/20 Sinus tachycardia, rate 108 bpm Abnormal ECG When compared with ECG of 19-APR-2020 21:03, No significant change was found Confirmed by Nba Wallace ([id number]) on 05/01/2020 7:20:41 PM Chest X-Ray Date: 05/01/20 IMPRESSION: No significant change compared to the prior study. No acute process. Stable mild cardiomegaly.
--- NOTE | 2020-05-02 10:10 | History & Physical Bridge Note ---
Date of Service May 02, 2020 History & Physical Bridge Note I have examined the patient, reviewed the History & Physical and in the interval since the performance of the History & Physical I have noted the following changes of clinical significance: no changes noted
[2020-05-02] MEDS ORDERED: PROPOFOL IV EMULSION 10 MG/ML 20 ML VIAL IV ONE (11:08)
[2020-05-02] MEDS ORDERED: LIDOCAINE HCL 2% 2 ML VIAL/AMP(20MG/ML) INFIL ONE (11:08)
--- NOTE | 2020-05-02 11:21 | Communication Note ---
Date of Service: May 02, 2020 The patient underwent upper endoscopy this morning. The upper endoscopy was notable for normal esophagus stomach and small intestine. There was no evidence of hematemesis or gastrointestinal bleeding. The patient notes epigastric discomfort perhaps this is related to a medication such as metformin. Would suggest the metformin be discontinued for 6 to 8 weeks and follow-up with his primary care provider. Please call with any questions or concerns, GI to sign off
--- NOTE | 2020-05-02 11:21 | GI REPORT ---
Patient Name: Bry Akhtar Procedure Date: 05/02/2020 11:01 AM Date of : 1975 Admit Type: Inpatient Age: 44 Gender: Male Attending MD: Belen Jones DO Procedure: Upper GI endoscopy Providers: Belen Jones DO Referring MD: Maxwell Ruiz Md, Aruna Guzman, Nicko Barton Indications: Coffee-ground emesis Medicines: Monitored Anesthesia Care Complications: No immediate complications. Estimated blood loss: Minimal. Estimated Blood Loss: Estimated blood loss was minimal. Procedure: Pre-Anesthesia Assessment: - Prior to the procedure, a History and Physical was performed, and patient medications, allergies and sensitivities were reviewed. The patient's tolerance of previous anesthesia was reviewed. - The risks and benefits of the procedure and the sedation options and risks were discussed with the patient. All questions were answered and informed consent was obtained. - Patient identification and proposed procedure were verified prior to the procedure by the physician, the nurse and the biodiesel engine specialist. The procedure was verified in the procedure room. - Pre-procedure physical examination revealed no contraindications to sedation. - ASA Grade Assessment: III - A patient with severe systemic disease. - After reviewing the risks and benefits, the patient was deemed in satisfactory condition to undergo the procedure. - The anesthesia plan was to use monitored anesthesia care (MAC). - Immediately prior to administration of medications, the patient was re-assessed for adequacy to receive sedatives. - The heart rate, respiratory rate, oxygen saturations, blood pressure, adequacy of pulmonary ventilation, and response to care were monitored throughout the procedure. - The physical status of the patient was re-assessed after the procedure. After obtaining informed consent, the endoscope was passed under direct vision. Throughout the procedure, the patient's blood pressure, pulse, and oxygen saturations were monitored continuously. The Endoscope was introduced through the mouth, and advanced to the third part of duodenum. The upper GI endoscopy was accomplished without difficulty. The patient tolerated the procedure well. Findings: The examined esophagus was normal. The Z-line was regular and was found 40 cm from the incisors. The entire examined stomach was normal. Biopsies were taken with a cold forceps for histology. The pathology specimen was placed into Bottle B. Estimated blood loss was minimal. The examined duodenum was normal. Biopsies were taken with a cold forceps for histology. The pathology specimen was placed into Bottle A. Estimated blood loss was minimal. Impression: - Normal esophagus. - Z-line regular, 40 cm from the incisors. - Normal stomach. Biopsied. - Normal examined duodenum. Biopsied. Recommendation: - Return patient to [facility] for ongoing care. - Advance diet as tolerated. - Await pathology results. -Perhaps symptoms of discomfort and nausea related to medication such as metformin. Belen Jones D.O. Belen Jones, DO 05/02/2020 11:20:40 AM This report has been signed electronically. Note Initiated On: 05/02/2020 11:01 AM Number of Addenda: 0 I attest to the content of the Intraoperative Record and orders documented therein, exceptions below {[id number]}
[2020-05-02 11:32] LABS: Estimated Average Glucose 174 mg/dl; Hemoglobin A1C 7.7 % (4.5-5.6)
--- NOTE | 2020-05-02 11:58 | Anesthesiology Progress Note ---
Date of Service May 02, 2020 Anesthesia Post Procedure Vital Signs Vital Signs: Temp Pulse Pulse Resp BP BP BP 05/02/20 11:45 108 H 16 152/90 H 05/02/20 11:30 110 H 16 170/106 H 05/02/20 11:15 106 H 18 167/104 H 05/02/20 10:22 98.4 F 106 H 24 190/100 H 05/02/20 09:58 110 H 05/02/20 08:40 162/90 H 05/02/20 07:37 98.2 F 107 H 20 185/99 H 176/111 H 05/02/20 04:11 98.4 F 102 H 20 161/83 H 05/01/20 23:41 89 05/01/20 23:00 97.9 F 88 18 134/82 05/01/20 19:38 97.5 F L 98 H 18 134/73 05/01/20 18:48 107 H 05/01/20 16:23 97.9 F 106 H 16 156/84 H 05/01/20 15:31 107 H 14 05/01/20 15:30 105 H 13 151/80 H 05/01/20 15:02 105 H 19 05/01/20 15:01 106 H 16 140/85 05/01/20 15:00 106 H 19 05/01/20 14:30 107 H 17 129/93 05/01/20 14:00 105 H 15 160/88 H 05/01/20 13:35 113 H 20 170/120 H 05/01/20 13:05 107 H 13 169/119 H 05/01/20 12:01 111 H 13 145/87 H Pulse Ox 05/02/20 11:45 95 05/02/20 11:30 95 05/02/20 11:15 95 05/02/20 10:22 95 05/02/20 09:58 05/02/20 08:40 05/02/20 07:37 93 05/02/20 04:11 96 05/01/20 23:41 05/01/20 23:00 95 05/01/20 19:38 97 05/01/20 18:48 05/01/20 16:23 93 05/01/20 15:31 92 05/01/20 15:30 93 05/01/20 15:02 93 05/01/20 15:01 91 05/01/20 15:00 92 05/01/20 14:30 94 05/01/20 14:00 92 05/01/20 13:35 92 05/01/20 13:05 94 05/01/20 12:01 97 Pain Intensity Abdomen: Pain Intensity: 6 Transfer of Care Handoff Completed per policy Notes Mental Status: alert / awake / arousable and participated in evaluation Patient Amnestic to Procedure: Yes Nausea / Vomiting: adequately controlled Pain: adequately controlled Airway Patency, RR, SpO2: stable & adequate BP & HR: stable & adequate Hydration State: stable & adequate Anesthetic Complications: no major complications apparent and Pt Satisfied with anesthetic care
[2020-05-02] MEDS ORDERED: ACETAMINOPHEN 1,000 MG/100 ML VIAL IV PRN (12:38)
[2020-05-02] MEDS: LIDOCAINE 5% 1 PATCH TD SCH (13:07)
--- NOTE | 2020-05-02 15:35 | XRay Report ---
XR lumbar spine 2-3V CLINICAL HISTORY: persistent low back pain COMPARISON STUDY: July 2018 FINDINGS: There is contrast within nondilated colon. Electronic device projects over the left mid abd omen. No fractures or subluxations are visualized. There are multilevel degenerative changes. IMPRESSION: 1. Multilevel degenerative changes most pronounced at the L3-4 through L5/S1 levels 2. No fractures or subluxations identified ACT 112: Negative or not required by law. Electronically signed by: Ortiz Driscoll M.D. 05/02/2020 3:33 PM
[2020-05-03] MEDS: MoRPHine SULFATE 2 MG/ML CARP IV PRN ×2 (01:44→11:21)
[2020-05-03] MEDS: LIDOCAINE 5% 1 PATCH TD SCH (07:37)
[2020-05-03] MEDS: METOCLOPRAMIDE HCL 10 MG TABLET PO SCH ×2 (07:39→13:04)
[2020-05-03] MEDS: DICYCLOMINE HCL 10 MG CAP PO SCH ×2 (07:40→13:04)
[2020-05-03] MEDS: SODIUM CHLORIDE 0.9% 1000ML 1,000 ML IV SCH (07:40)
[2020-05-03] MEDS: lisinopriL 20 MG TAB PO SCH (07:40)
[2020-05-03] MEDS: PANTOprazole 40 MG in SYRINGE 0 ML IV SCH (07:41)
[2020-05-03] MEDS: INSULIN GLARGINE SOLOSTAR 100 UNITS/ML 3 ML PEN SC SCH (08:35)
[2020-05-03] MEDS: INSULIN ASPART 100 UNITS/ML 3 ML PEN SC SCH ×2 (08:35→13:03)
--- NOTE | 2020-05-03 09:34 | Hospitalist Progress Note ---
Date of Service May 03, 2020 Assessment & Plan (1) Hematemesis: (2) Nausea and vomiting: (3) Abdominal pain: (4) Gastroparesis: -Patient presenting from home with reports of abdominal pain, nausea, vomiting, and reported hematemesis -mildly tachycardic but otherwise stable -Hgb stable at 14.3, no elevation of BUN -Patient reports daily use of ibuprofen, this may be contributing to possible gastritis or bleeding ulcer -S/p Protonix 40 mg IV in the ED, will continue with Protonix 40 mg IV twice daily -Clear liquid diet, n.p.o. after midnight -GI consult, appreciate input. Patient is now status post EGD (05/02/20) which was overall unremarkable, biopsies were obtained. -After review of outpatient chart, seems like there could be some problems with medication compliance. Resume home medications of dicyclomine and Reglan. -EGD 08/2019 - large amount of food residue was found in the stomach -Also concerned about possible metformin causing abdominal discomfort, recommend to hold metformin for next 4 to 6 weeks (5) Diabetes mellitus, type 2: -HgbA1c 6.9 11/2019 -Hold oral agents and utilize Lantus and NovoLog per protocol while hospitalized -Due to ongoing GI complaints and noted tachycardia, may need to consider discontinuation of Trulicity, GI also recommend to hold metformin for next 4 to 6 weeks Low back pain -Patient was complaining of lower back pain, says he has degenerative disease -obtained x-ray lower back, confirmed degenerative changes, no acute changes though -Placed lidocaine patch and patient responded very well to it, recommend to continue lidocaine patch as needed as outpatient (6) HTN (hypertension): -BP controlled, continue lisinopril (7) DVT prophylaxis: -SCDs due to possible hematemesis concern on admission Dispo: Plan to discharge patient home. Admission and Anticipated Discharge Date Admission Date: May 01, 2020 Subjective Patient is sitting up in bed, in no acute distress. He says he feels much better, for breakfast he had OJ and some water without any trouble. No nausea or vomiting. No abdominal pain. Patient tolerated lunch, and patient feels well to go home. Discussed gastroparesis, and that he needs to eat only small portions at a time, and follow-up with his primary care doctor regarding his biopsies from endoscopies. Also discussed to hold metformin and Trulicity for now, and discuss diabetes management with his PCP. For lower back pain, patient got lidocaine patch in the hospital and responded very well to it. Advised to obtain lidocaine patches for chronic back pain. X- ray of lumbar spine negative for any acute changes, shows degenerative changes. Review of Systems Review of Systems: All systems reviewed & are unremarkable except as noted in HPI & below Constitutional: no fever and no chills Respiratory: no cough and no dyspnea Cardiovascular: no chest pain and no palpitations Gastrointestinal: no abdominal pain, no nausea and no vomiting Physical Exam Physical Exam: General Appearance: Middle-aged obese male, in no acute distress Head: normocephalic, Atraumatic Eyes: normal inspection, EOMI Neck: supple, Trachea midline Respiratory/Chest: Normal breath sounds, CTA, No accessory muscle use Cardiovascular: S1, S2, mild tachycardia, No murmur Abdomen/GI:Soft, mild generalized tender, no guarding/rigidity, Bowel sounds present Back: only mildly tender to palpation in lumbar area spinal and bilateral paraspinal muscle area Extremities/Musculoskelatal:normal inspection, no edema, moves extremities spontaneously Neurologic/Psych:AAOX3, speech fluent, no facial asymmetry, moves extremities spontaneously Skin: normal color, warm Results & Data Results & Data ([facility]) Vital Signs (Past 12 Hours) Vital Signs Temp Pulse Pulse Resp BP BP Pulse Ox 05/03/20 07:34 36.9 C 103 H 16 161/80 H 92 05/03/20 02:48 36.9 C 107 H 20 186/89 H 96 05/03/20 00:12 102 H 05/02/20 23:47 36.8 C 97 H 18 158/83 H 94 Laboratory Results 05/03/20 05/03/20 05/03/20 Range/Units 11:47 09:53 09:53 WBC 8.98 (4.8-10.8) K/uL RBC 4.76 (4.7-6.1) M/uL Hgb 13.4 L (14.0-18.0) g/dL Hct 39.4 L (42-52) % MCV 82.8 (80-100) fL MCH 28.2 (25-34) pg MCHC 34.0 (32-36) g/dL RDW Std Deviation 38.5 (36.4-46.3) fL RDW Coeff of Abiodun 12.8 (11.5-14.5) % Plt Count 242 (130-400) K/uL MPV 8.8 (7.4-10.4) fL Sodium 138 (136-145) mmol/L Potassium 3.6 (3.5-5.1) mmol/L Chloride 104 (98-107) mmol/L Carbon Dioxide 26 (21-32) mmol/L Anion Gap 8.0 (3-11) BUN 10 (7-18) mg/dl Creatinine 0.82 (0.6-1.4) mg/dl Est Cr Clr Drug Dosing 168.4 ml/min Est GFR ( Amer) 122.9 Est GFR (Non-Af Amer) 106.0 BUN/Creatinine Ratio 12.0 (10-20) Glucose 174 H (70-99) mg/dl POC Glucose 145 H (70-99) mg/dl Calcium 8.4 L (8.5-10.1) mg/dl Phosphorus 2.1 L (2.5-4.9) mg/dl Magnesium 1.8 (1.8-2.4) mg/dl Crossmatch 05/03/20 05/02/20 05/02/20 Range/Units 07:50 20:25 16:43 WBC (4.8-10.8) K/uL RBC (4.7-6.1) M/uL Hgb (14.0-18.0) g/dL Hct (42-52) % MCV (80-100) fL MCH (25-34) pg MCHC (32-36) g/dL RDW Std Deviation (36.4-46.3) fL RDW Coeff of Abiodun (11.5-14.5) % Plt Count (130-400) K/uL MPV (7.4-10.4) fL Sodium (136-145) mmol/L Potassium (3.5-5.1) mmol/L Chloride (98-107) mmol/L Carbon Dioxide (21-32) mmol/L Anion Gap (3-11) BUN (7-18) mg/dl Creatinine (0.6-1.4) mg/dl Est Cr Clr Drug Dosing ml/min Est GFR ( Amer) Est GFR (Non-Af Amer) BUN/Creatinine Ratio (10-20) Glucose (70-99) mg/dl POC Glucose 176 H 144 H 189 H (70-99) mg/dl Calcium (8.5-10.1) mg/dl Phosphorus (2.5-4.9) mg/dl Magnesium (1.8-2.4) mg/dl Crossmatch 05/01/20 Range/Units 09:40 WBC (4.8-10.8) K/uL RBC (4.7-6.1) M/uL Hgb (14.0-18.0) g/dL Hct (42-52) % MCV (80-100) fL MCH (25-34) pg MCHC (32-36) g/dL RDW Std Deviation (36.4-46.3) fL RDW Coeff of Abiodun (11.5-14.5) % Plt Count (130-400) K/uL MPV (7.4-10.4) fL Sodium (136-145) mmol/L Potassium (3.5-5.1) mmol/L Chloride (98-107) mmol/L Carbon Dioxide (21-32) mmol/L Anion Gap (3-11) BUN (7-18) mg/dl Creatinine (0.6-1.4) mg/dl Est Cr Clr Drug Dosing ml/min Est GFR ( Amer) Est GFR (Non-Af Amer) BUN/Creatinine Ratio (10-20) Glucose (70-99) mg/dl POC Glucose (70-99) mg/dl Calcium (8.5-10.1) mg/dl Phosphorus (2.5-4.9) mg/dl Magnesium (1.8-2.4) mg/dl Crossmatch See Detail (1) Hematemesis Nausea presence: unspecified Qualified Code(s): K92.0 - Hematemesis
[2020-05-03 10:11] LABS: Hematocrit (blood only) 39.4 % (42-52); Hemoglobin 13.4 g/dL (14.0-18.0); Mean Corpuscular Hemoglobin 28.2 pg (25-34); Mean Corpuscular Volume 82.8 fL (80-100); Mean Platelet Volume 8.8 fL (7.4-10.4); Platelet Count 242 K/uL (130-400); RDW Coefficient of Variation 12.8 % (11.5-14.5); RDW Standard Deviation 38.5 fL (36.4-46.3); Red Blood Count 4.76 M/uL (4.7-6.1); White Blood Count 8.98 K/uL (4.8-10.8)
[2020-05-03 10:33] LABS: Calcium 8.4 mg/dl (8.5-10.1); Creatinine Clr Calc Pharmacy 168.4 ml/min; Est GFR (African American) 122.9; Magnesium 1.8 mg/dl (1.8-2.4); Potassium 3.6 mmol/L (3.5-5.1)
[2020-05-03 10:34] LABS: Phosphorus 2.1 mg/dl (2.5-4.9)
[2020-05-03] MEDS ORDERED: POTASSIUM CHLORIDE 20 MEQ TABCR PO STA (13:43)
[2020-05-03] MEDS ORDERED: MAGNESIUM OXIDE 400 MG TAB PO ONE (13:44)
--- NOTE | 2020-05-03 13:51 | Discharge Summary ---
Date of Service May 03, 2020 Admission HPI Per Admitting Provider 44-year-old male with PMH HTN, IBS, gastroparesis, esophagitis, DM type II on insulin, and other problems listed below who presents the ED for evaluation of nausea, vomiting, abdominal pain. Patient has a longstanding history of recurrent and persistent GI complaints. He reports that about 1 week ago, he developed mid abdominal pain with also associated mid back and bilateral flank pain. He reports pain has been constant and made worse after eating. Yesterday, he reports he developed vomiting with some evidence of bright red and dark red blood. Reports about 5 episodes of such and last episode was in route to the ED. He reports having issues with chronic diarrhea however had a normal bowel movement this morning. Denies bright red bleeding per rectum or dark tarry stools. He reports some episodes of diaphoresis but denies fevers and chills. No chest pain or shortness of breath. Denies lightheadedness, dizziness, diaphoresis, syncopal events. No urinary symptoms. In ED, patient is somewhat tachycardic however otherwise hemodynamically stable. Hgb is stable at 14.3. GI has evaluated the patient who is recommending observation overnight and planning on EGD tomorrow. Patient received IVF, IV Protonix 40 mg, IV Zofran x2 doses, IV morphine x2 doses, and 1 dose of IV Dilaudid. Admission Exam Per Admitting Provider Physical Exam: Vitals signs as noted above General Appearance:Obese, no apparent distress Head: normocephalic, Atraumatic Eyes: normal inspection, EOMI Neck: supple, Trachea midline Respiratory/Chest: Normal breath sounds, CTA, No accessory muscle use Cardiovascular: S1, S2, sinus tachycardia, No murmur Abdomen/GI:Soft, mild generalized tender, no guarding/rigidity, Bowel sounds present Extremities/Musculoskelatal:normal inspection, no edema Neurologic/Psych:AAOX3, grossly no focal neurological deficits Skin: normal color, warm Principal Diagnosis Abdominal pain, nausea and vomiting due to gastroparesis Status post EGD Lower back pain, due to degenerative lumbar spine Discharge Exam General Appearance: Middle-aged obese male, in no acute distress Head: normocephalic, Atraumatic Eyes: normal inspection, EOMI Neck: supple, Trachea midline Respiratory/Chest: Normal breath sounds, CTA, No accessory muscle use Cardiovascular: S1, S2, mild tachycardia, No murmur Abdomen/GI:Soft, mild generalized tender, no guarding/rigidity, Bowel sounds present Back: only mildly tender to palpation in lumbar area spinal and bilateral paraspinal muscle area Extremities/Musculoskelatal:normal inspection, no edema, moves extremities spontaneously Neurologic/Psych:AAOX3, speech fluent, no facial asymmetry, moves extremities spontaneously Skin: normal color, warm Discharge Data Allergies Allergy/AdvReac Type Severity Reaction Status Date / Time Cephalosporins Allergy Unknown Unknown Verified 05/01/20 09:44 NSAIDS (Non-Steroidal AdvReac Intermediate gastroparesis, Verified 05/01/20 09:44 Anti-Inflamma kidney problems Consultations 05/01/20 09:55 Consult Gastroenterology Stat 05/01/20 14:27 ED Decision to Admit Stat 05/01/20 16:23 Consult Gastroenterology Routine Procedures Performed Operation Date: 05/02/20 15:40 Actual Procedures p EGD Biopsy Cytology - Belen Jones The patient underwent upper endoscopy. The upper endoscopy was notable for normal esophagus stomach and small intestine. There was no evidence of he matemesis or gastrointestinal bleeding. The patient notes epigastric discomfort perhaps this is related to a medication such as metformin. Would suggest the metformin be discontinued for 6 to 8 weeks and follow-up with his primary care provider. Ordered Studies 05/01/20 10:36 CT Abd and Pelvis [CT abd pelvis oral and IV con] Stat IMPRESSION: 1. Small hiatal hernia. 2. Fatty replacement of the liver. 3. Scattered colonic diverticulosis with no evidence for acute diverticulitis. 4. Normal appendix. Hospital Course (1) Hematemesis: (2) Nausea and vomiting: (3) Abdominal pain: (4) Gastroparesis: -Patient presenting from home with reports of abdominal pain, nausea, vomiting, and reported hematemesis -mildly tachycardic but otherwise stable -Hgb stable at 14.3, no elevation of BUN -Patient reports daily use of ibuprofen, this may be contributing to possible gastritis or bleeding ulcer -S/p Protonix 40 mg IV in the ED, will continue with Protonix 40 mg IV twice daily -Clear liquid diet, n.p.o. after midnight -GI consult, appreciate input. Patient is now status post EGD (05/02/20) which was overall unremarkable, (normal esophagus stomach and small intestine. There was no evidence of hematemesis or gastrointestinal bleeding)biopsies were obtained. -After review of outpatient chart, seems like there could be some problems with medication compliance. Resume home medications of dicyclomine and Reglan. -EGD 08/2019 - large amount of food residue was found in the stomach -Also concerned about possible metformin causing abdominal discomfort, recommend to hold metformin for next 4 to 6 weeks (5) Diabetes mellitus, type 2: -HgbA1c 6.9 11/2019 -Hold oral agents and utilize Lantus and NovoLog per protocol while hospitalized -Due to ongoing GI complaints and noted tachycardia, may need to consider discontinuation of Trulicity, GI also recommend to hold metformin for next 4 to 6 weeks Low back pain -Patient was complaining of lower back pain, says he has degenerative disease -obtained x-ray lower back, confirmed degenerative changes, no acute changes though -Placed lidocaine patch and patient responded very well to it, recommend to continue lidocaine patch as needed as outpatient (6) HTN (hypertension): -BP controlled, continue lisinopril Total Time Total Time Spent Total Time Spent (In Minutes): 40 Total Time Includes: Examination of the Patient, Discharge Planning, Medication Reconciliation and Communication With Other Providers Discharge Plan Discharge Items Patient Disposition: Home - Self-Care Reason For Visit: N/V,ABDOMINAL PAIN Discharge Diagnosis: Abdominal pain, nausea and vomiting due to gastroparesis Status post EGD Lower back pain, due to degenerative lumbar spine Activity: Per Instructions section Non-emergency contact: Primary Care Provider and Security Inspector Call non-emergency contact if: you have any medication questions and your symptoms worsen Follow-up/Referrals: Nicko Barton MD [Primary Care Provider] - 05/07/20 11:00 am (05/07/2020 11:00 AM Provider Nicko Barton MD Department Family Practice [facility] ) Diet: Carb Consistent or DM2 and Low Fiber Diet Comment: Gastroparesis diet, make sure to have only small portions at a time and not eat too much at once Addtl Attending Provider Instructions: Follow-up with your primary care doctor within 1 week. Appointment with your primary care doctor was scheduled for May 07. At this time recommend not to use Trulicity or metformin as this may be causing your abdominal discomfort. Your primary care doctor will need to follow-up with you closely regarding your diabetes management. Make sure to continue taking your Bentyl and Reglan. Biopsies were obtained during your endoscopy with gastroenterology. Results of the biopsies will be available by the time you see your primary care doctor to discuss further. You may have to see gastroenterology again depending on the results. For back pain, recommend to use lidocaine patches, you can obtain these [id number] (under the name Salonpas). You can also take Tylenol 1000 mg 3 times a day, max dose is 3000 mg daily. Do not recommend to take NSAIDs, such as ibuprofen, Aleve, Motrin, as these can irritate your stomach. Pending Studies at Discharge: Yes Studies:: Biopsies from endoscopy Stand-Alone Forms: My [facility] [place], Smoking Cessation Medications and DC Order Prescriptions: New lidocaine 5 % Adhesive Patch,Medicated 1 patch transdermal QAM 10 Days Qty: 15 RF: 0 Continued insulin aspart U-100 [Novolog Flexpen U-100 Insulin] 100 unit/mL (3 mL) insulin pen 12 unit subcut TIDM RF: 0 pantoprazole [Protonix] 40 mg tablet,delayed release (DR/EC) 40 mg PO BID RF: 0 diclofenac sodium 1 % gel 1 % TOPICAL DIRECTED PRN (Reason: Pain) RF: 0 lisinopril 20 mg Tablet 20 mg PO QAM Qty: 30 RF: 1 diphenhydramine-acetaminophen [Tylenol PM Extra Strength] 25-500 mg Tablet 2 tab PO HS PRN (Reason: Pain) RF: 0 dicyclomine 10 mg capsule 10 mg PO QID RF: 0 metoclopramide HCl 10 mg tablet 10 mg PO TIDM RF: 0 acetaminophen [Tylenol Arthritis Pain] 650 mg Tablet Extended Release 1,300 mg PO Q12H RF: 0 Lantus Solostar U-100 Insulin 100 unit/mL (3 mL) Insulin Pen 18 unit SUBCUT BID RF: 0 Discontinued metformin 1,000 mg tablet 1,000 mg PO BIDM RF: 0 loperamide [Imodium A-D] 2 mg Capsule 4 mg PO HS RF: 0 ibuprofen 400 mg Tablet 400 - 800 mg PO BID RF: 0 Trulicity 1.5 mg/0.5 mL pen injector 1.5 mg SUBCUT WK RF: 0 Discharge Orders: Discharge Order (Routine); Ordered 05/03/20 Ordered By: Maxwell Lopez/Other Patient Handouts: Gastroparesis Admission Data Admit Date/Time: 05/01/20 14:43 Attending Provider: Maxwell Ruiz Admit Provider: Diogenes Richard Primary Care Provider: Nicko Barton Other Providers: Soledad Saravia ; Diogenes Richard ; Belen Jones Other Interventions: Discharge Summary Assessment (RN) Last Done: 05/02/20 11:49
== END 2020-05-03 15:07 | disposition home or self-care (01) ==
LOC: ED 09:07 → 2N 14:43 → INTOOBSV 14:43 → SUATTDRO 14:43 → 2N 15:48

== ENCOUNTER 2022-09-06 12:56 | Observation (INO) ==
[2022-09-06 13:38] LABS: Basophils # (auto) 0.08 K/uL (0-0.2); Basophils % (auto) 1.1 %; Eosinophils # (auto) 0.58 K/uL (0-0.50); Eosinophils % (auto) 8.2 %; Hematocrit (blood only) 43.3 % (40.1-51.0); Hemoglobin 14.4 g/dl (14.0-18.0); Immature Granulocytes # (auto) 0.13 K/uL (0.00-0.02); Immature Granulocytes % (auto) 1.8 %; Lymphocytes # (auto) 1.65 K/uL (1.2-3.4); Lymphocytes % (auto) 23.4 %; Mean Corpuscular Hgb Conc 33.3 g/dL (32.0-36.0); Mean Corpuscular Volume 84.2 fL (80.0-100.0); Mean Platelet Volume 9.6 fL (9.4-12.4); Monocytes # (auto) 0.92 K/uL (0.24-0.82); Neutrophils # (auto) 3.69 K/uL (1.4-6.5); Neutrophils % (auto) 52.5 %; Platelet Count 218 K/uL (130-400); RDW Coefficient of Variation 13.1 % (11.5-14.5); RDW Standard Deviation 40.6 fL (36.4-46.3); Red Blood Count 5.14 M/uL (4.63-6.08); White Blood Count 7.05 K/ul (4.8-10.8)
[2022-09-06] MEDS ORDERED: SODIUM CHLORIDE 0.9% 1000ML 1,000 ML IV ONE (13:50)
[2022-09-06] MEDS ORDERED: ALBUTEROL HFA 8 GM INHALER INH ONE (13:50)
--- NOTE | 2022-09-06 13:58 | XRay Report ---
SINGLE VIEW CHEST CLINICAL HISTORY: Cough. FINDINGS: 2 AP, portable, upright chest radiographs are compared to study dated 09/11/2021. Correlati on is made with chest CT dated 01/05/2020. The examination is degraded by portable technique, large jodi dy habitus, and apical lordotic positioning. The cardiomediastinal silhouette is top normal for proje ction. There is mild elevation of the right hemidiaphragm and bibasilar atelectasis. The lungs and pl eural spaces are otherwise clear. No pneumothorax is seen. The bony thorax is grossly intact. IMPRESSION: No active disease in the chest. ACT 112: Negative or not required by law. Electronically signed by: Jaydon Wallace M.D. 09/06/2022 1:57 PM
[2022-09-06 13:59] LABS: Albumin Globulin Ratio 1.4 (0.9-2); Albumin Level 4.1 gm/dl (3.4-5.0); BUN Creatinine Ratio 24.1 (10-20); Bilirubin,Total 0.5 mg/dl (0.2-1.0); Calcium 9.3 mg/dl (8.5-10.1); Est GFR (African American) 123.1 ml/min; Est GFR (Non-African American) 106.2 ml/min; Globulin 2.9 gm/dl (2.5-4.0)
[2022-09-06 14:04] LABS: Troponin I High Sensitivity 30.5 pg/ml (0-20)
--- NOTE | 2022-09-06 14:05 | Emergency Department Note ---
Impression & Plan Precordial chest pain, Tachycardia, Flu-like symptoms, Elevated troponin, RSV (respiratory syncytial virus infection) ED Provider Note NAME: ROBERT BARAJAS JR AGE: 46 SEX: M : 1975 ARRIVES VIA: Walk-In INFORMANT: [Patient] ED PROVIDER(S): [Jaydon Brewer MD] CHIEF COMPLAINT: Chest pain, illness HISTORY OF PRESENT ILLNESS: The patient is a 46-year-old male who presents to the ER with 3 days of a cough, runny nose and some eye watering. He has anterior chest pain that radiates to the left around to his back and is noticed mostly with coughing. The pain is a 6 or so on a scale of 1-10. He feels mildly short of breath. No fever. No sore throat. No vomiting or diarrhea. 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 REVIEW OF SYSTEMS: See HPI for pertinent positives and negatives. A total of ten systems were reviewed and were otherwise negative. PMHx/PSHx: See Below SOCIAL HISTORY: See Below. PHYSICAL EXAM: GENERAL: Patient is in no acute distress. HEENT: No acute trauma, normocephalic atraumatic, mucous membranes moist, no nasal congestion, no scleral icterus. NECK: No stridor, no adenopathy, no meningismus, trachea is midline. LUNGS: Clear to auscultation bilaterally, no wheeze, no rhonchi, breath sounds equal. Chest: Tender to the mid anterior and left anterior chest wall HEART: Without murmurs gallops or rubs, regular rate and rhythm. ABDOMEN: Soft, nontender, bowel sounds positive, no peritonitis. EXTREMITIES: No cyanosis or edema, full range of motion of all the joints without pain or difficulty, no signs for acute trauma. NEUROLOGIC: Oriented x 3, no acute motor or sensory deficits, no focal weakness. SKIN: No rash, no jaundice, no diaphoresis. DIFFERENTIAL DIAGNOSIS: Generalized viral illness, bronchitis, pneumonia, RSV, influenza, COVID-19, cardiac ischemia, pericarditis, musculoskeletal chest pain, among others. EMERGENCY DEPARTMENT COURSE/PROCEDURES: ECG: Indication was chest pain. The ECG shows a sinus tachycardia with a rate of 115. There is no ST elevation, no PVCs. The QTC is 467. Continuous Cardiac Monitoring: An order was placed for continuous cardiac monitoring. The monitor shows a rate of 114 with sinus tachycardia. MEDICAL DECISION MAKING: There is no leukocytosis or concerning anemia. There is a normal platelet count. No renal failure or significant electrolyte abnormality. There were some subtle liver enzyme elevations. ECG shows a sinus tachycardia, no ischemia. Cardiac enzyme testing x2 is slightly elevated, this elevation could be consistent with cardiac injury or potentially mismatch. No pancreatitis. COVID, influenza test were negative. RSV test was positive. Chest film did not show pneumonia. On exam, the patient's chest wall was tender to palpation. The patient received IV saline, he was given albuterol via MDI, he was given IV Tylenol, IV morphine. The patient presents with cough, precordial chest pain. He is RSV positive. He does have tachycardia as well as a subtle troponin elevation. Given his presentation, given his findings, I do think observation and further cardiac work-up would be warranted. I did speak with the patient and case management, the on-call hospitalist was consulted. Past Med/Surg History Medical History Acquired claw toe of left foot Acquired claw toe of right foot Acquired hallux valgus of right foot Adjustment disorder with depressed mood Cardiac murmur A CHILD Deep vein thrombosis 5 YEARS AGO (? 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 Garcia History of reduction of nasal fracture 09/25/21-Dr. Garcia History of shoulder surgery right-2019 History of tonsillectomy and adenoidectomy 1980 History of tooth extraction Status post incision and drainage LLE Family History Brother Family history of diabetes mellitus Environmental allergies Asthma Mother Family history of diabetes mellitus Hypertension Environmental allergies Father Family history of diabetes mellitus Hypertension Heart disease Grandfather (Paternal) Lung cancer smoker Aunt Bleeding disorder Other No family history of adverse response to anesthesia Social History Smoking Status: Current every day smoker Tobacco Type: Cigarettes Age Started Using Tobacco: 14; Cigarettes Per Day: 2 ppd; Second Hand Exposure: No; Hx Alcohol Use: Yes Alcohol type: beer Alcohol Intake Frequency: Monthly or Less Alcohol Intake Frequency Comment: seldom, a couple times per year if that per pt Hx Substance Use: No Preferred Language: Thai Communication Ability: Effective Emergency Nurse Required: No Beliefs That Will Affect Care: None marital status: Single marital status details: single at this time Current Living Situation: Significant Other Current Living Situation Comment: lives with sister current occupational status: employed 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 other: girlfriend able to assist with dressing changes and care as needed Feels Safe at Home: Yes during the past year weight has: remained stable Assistive Devices: None Allergies Allergies Allergy/AdvReac Type Severity Reaction Status Date / Time Cephalosporins Allergy Unknown Unknown Verified 09/06/22 13:25 NSAIDS (Non-Steroidal AdvReac Intermediate gastroparesis, Verified 09/06/22 13:25 Anti-Inflamma kidney problems Home Meds Home Medications Medication Instructions Recorded Confirmed insulin aspart U-100 100 unit/mL 12 unit subcut TIDM 06/09/19 09/06/22 (3 mL) subcutaneous pen (Novolog Flexpen U-100 Insulin aspart) dicyclomine 10 mg capsule 10 mg PO QID PRN Diarrhea 05/01/20 09/06/22 famotidine 20 mg tablet 20 mg PO HS 07/13/20 09/06/22 docusate sodium 100 mg capsule 100 mg PO BID PRN Constipation 02/25/21 09/06/22 (Col-Rite) ibuprofen 125 mg-acetaminophen 250 3 tab PO BID 02/25/21 09/06/22 mg tablet (Advil Dual Action) pantoprazole 40 mg tablet,delayed 40 mg PO BID 02/25/21 09/06/22 release losartan 50 mg tablet 50 mg PO QAM 08/26/21 09/06/22 metformin 500 mg tablet 1,000 mg PO BID 08/26/21 09/06/22 dulaglutide 4.5 mg/0.5 mL 4.5 mg subcut FR 09/11/21 09/06/22 subcutaneous pen injector (Trulicity) cyclobenzaprine 10 mg tablet 10 mg PO HS PRN Muscle Spasm 09/06/22 09/06/22 gabapentin 100 mg capsule 100 mg PO QAM 09/06/22 09/06/22 gabapentin 100 mg capsule 200 mg PO HS 09/06/22 09/06/22 insulin glargine 100 unit/mL (3 22 unit subcut QAM 09/06/22 09/06/22 mL) subcutaneous pen (Lantus Solostar U-100 Insulin) insulin glargine 100 unit/mL (3 27 unit subcut HS 09/06/22 09/06/22 mL) subcutaneous pen (Lantus Solostar U-100 Insulin) metoclopramide HCl 10 mg tablet 10 mg PO TIDM 09/06/22 09/06/22 Results & Data (ED) Vital Signs Vital Signs - 24 hr 09/06/22 13:03 09/06/22 13:07 09/06/22 13:07 Temperature 36.7 C Temperature Source Temporal Artery Scan Pulse Rate 115 H Pulse Rate from SpO2 Sensor Pulse Rhythm Respiratory Rate 18 Respiratory Effort / Characteristics Non-Labored Non-Labored Spontaneous Respiratory Depth Normal Normal Respiratory Pattern Regular Blood Pressure 154/79 H Blood Pressure Mean 104 Pulse Oximetry 93 Oxygen Delivery Method Room Air Room Air Room Air Sepsis Recent Fever Within 48 Hours No Sepsis New/Unexplained Change in Mental Status N/A Sepsis Action Taken by Nursing No Action Required 09/06/22 13:18 09/06/22 13:55 09/06/22 14:00 Temperature Temperature Source Pulse Rate 90 110 H Pulse Rate from SpO2 Sensor 110 H Pulse Rhythm Regular Respiratory Rate 19 13 Respiratory Effort / Characteristics Respiratory Depth Respiratory Pattern Blood Pressure 135/72 Blood Pressure Mean 93 Pulse Oximetry 98 97 Oxygen Delivery Method Room Air Sepsis Recent Fever Within 48 Hours Sepsis New/Unexplained Change in Mental Status Sepsis Action Taken by Nursing 09/06/22 14:00 09/06/22 14:30 09/06/22 14:30 Temperature Temperature Source Pulse Rate 108 H 105 H Pulse Rate from SpO2 Sensor 109 H Pulse Rhythm Respiratory Rate 15 13 Respiratory Effort / Characteristics Respiratory Depth Respiratory Pattern Blood Pressure 143/84 H Blood Pressure Mean 103 Pulse Oximetry 95 Oxygen Delivery Method Sepsis Recent Fever Within 48 Hours Sepsis New/Unexplained Change in Mental Status Sepsis Action Taken by Nursing 09/06/22 15:00 09/06/22 15:00 09/06/22 15:30 Temperature Temperature Source Pulse Rate 103 H Pulse Rate from SpO2 Sensor Pulse Rhythm Respiratory Rate 15 Respiratory Effort / Characteristics Respiratory Depth Respiratory Pattern Blood Pressure 141/85 H 139/68 Blood Pressure Mean 103 91 Pulse Oximetry Oxygen Delivery Method Sepsis Recent Fever Within 48 Hours Sepsis New/Unexplained Change in Mental Status Sepsis Action Taken by Nursing 09/06/22 15:30 09/06/22 16:00 09/06/22 16:00 Temperature Temperature Source Pulse Rate 103 H 104 H Pulse Rate from SpO2 Sensor Pulse Rhythm Respiratory Rate 20 18 Respiratory Effort / Characteristics Respiratory Depth Respiratory Pattern Blood Pressure 141/85 H Blood Pressure Mean 103 Pulse Oximetry Oxygen Delivery Method Sepsis Recent Fever Within 48 Hours Sepsis New/Unexplained Change in Mental Status Sepsis Action Taken by [facility] Medications Current Medication List: was personally reviewed by me Laboratory Data Attestation: I reviewed the patient's lab results. Result diagrams: 09/06/22 13:21 09/06/22 13:21 Lab Results 09/06/22 09/06/22 09/06/22 Range/Units 13:21 13:21 13:38 WBC 7.05 (4.8-10.8) K/ul RBC 5.14 (4.63-6.08) M/uL Hgb 14.4 (14.0-18.0) g/dl Hct 43.3 (40.1-51.0) % MCV 84.2 (80.0-100.0) fL MCH 28.0 (25.0-34.0) pg MCHC 33.3 (32.0-36.0) g/dL RDW Std Deviation 40.6 (36.4-46.3) fL RDW Coeff of Abiodun 13.1 (11.5-14.5) % Plt Count 218 (130-400) K/uL MPV 9.6 (9.4-12.4) fL Immature Gran % (Auto) 1.8 % Neut % (Auto) 52.5 % Lymph % (Auto) 23.4 % [place] % (Auto) 13.0 % Eos % (Auto) 8.2 % Baso % (Auto) 1.1 % Neut # (Auto) 3.69 (1.4-6.5) K/uL Lymph # (Auto) 1.65 (1.2-3.4) K/uL [place] # (Auto) 0.92 H (0.24-0.82) K/uL Eos # (Auto) 0.58 H (0-0.50) K/uL Baso # (Auto) 0.08 (0-0.2) K/uL Immature Gran # (Auto) 0.13 H (0.00-0.02) K/uL Sodium 138 (136-145) mmol/L Potassium 4.0 (3.5-5.1) mmol/L Chloride 102 (98-107) mmol/L Carbon Dioxide 30 (21-32) mmol/L Anion Gap 6 (3-11) BUN 19 (6-23) mg/dl Creatinine 0.79 (0.6-1.4) mg/dl Est Cr Clr Drug Dosing 178.0 ml/min Est GFR ( Amer) 123.1 ml/min Est GFR (Non-Af Amer) 106.2 ml/min BUN/Creatinine Ratio 24.1 H (10-20) Glucose 171 H (70-99(Fasting)) mg/dl Calcium 9.3 (8.5-10.1) mg/dl Total Bilirubin 0.5 (0.2-1.0) mg/dl AST 60 H (13-39) U/L ALT 101 H (7-52) U/L Alkaline Phosphatase 63 (34-104) U/L Troponin I High Sens 30.5 H (0-20) pg/ml Total Protein 7.0 (6.0-8.3) gm/dl Albumin 4.1 (3.4-5.0) gm/dl Globulin 2.9 (2.5-4.0) gm/dl Albumin/Globulin Ratio 1.4 (0.9-2) Lipase 31 (11-82) U/L SARS-CoV-2 (PCR) NEGATIVE (Negative) Influenza Type A (PCR) Negative (Neg) Influenza Type B (PCR) Negative (Neg) RSV (RT-PCR) Positive A* (Neg) 09/06/22 Range/Units 15:27 WBC (4.8-10.8) K/ul RBC (4.63-6.08) M/uL Hgb (14.0-18.0) g/dl Hct (40.1-51.0) % MCV (80.0-100.0) fL MCH (25.0-34.0) pg MCHC (32.0-36.0) g/dL RDW Std Deviation (36.4-46.3) fL RDW Coeff of Abiodun (11.5-14.5) % Plt Count (130-400) K/uL MPV (9.4-12.4) fL Immature Gran % (Auto) % Neut % (Auto) % Lymph % (Auto) % [place] % (Auto) % Eos % (Auto) % Baso % (Auto) % Neut # (Auto) (1.4-6.5) K/uL Lymph # (Auto) (1.2-3.4) K/uL [place] # (Auto) (0.24-0.82) K/uL Eos # (Auto) (0-0.50) K/uL Baso # (Auto) (0-0.2) K/uL Immature Gran # (Auto) (0.00-0.02) K/uL Sodium (136-145) mmol/L Potassium (3.5-5.1) mmol/L Chloride (98-107) mmol/L Carbon Dioxide (21-32) mmol/L Anion Gap (3-11) BUN (6-23) mg/dl Creatinine (0.6-1.4) mg/dl Est Cr Clr Drug Dosing ml/min Est GFR ( Amer) ml/min Est GFR (Non-Af Amer) ml/min BUN/Creatinine Ratio (10-20) Glucose (70-99(Fasting)) mg/dl Calcium (8.5-10.1) mg/dl Total Bilirubin (0.2-1.0) mg/dl AST (13-39) U/L ALT (7-52) U/L Alkaline Phosphatase (34-104) U/L Troponin I High Sens 49.9 H D (0-20) pg/ml Total Protein (6.0-8.3) gm/dl Albumin (3.4-5.0) gm/dl Globulin (2.5-4.0) gm/dl Albumin/Globulin Ratio (0.9-2) Lipase (11-82) U/L SARS-CoV-2 (PCR) (Negative) Influenza Type A (PCR) (Neg) Influenza Type B (PCR) (Neg) RSV (RT-PCR) (Neg) Administered Medications Discontinued Medications Albuterol (Albuterol Hfa 8 Gm Inhaler) 2 puffs INH NOW ONE Stop: 09/06/22 13:51 Last Admin: 09/06/22 14:09 Dose: 2 puffs Documented By: RDD Sodium Chloride (Nss 1000ml) 1,000 mls @ 999 mls/hr IV .Q1H1M ONE Stop: 09/06/22 14:50 Last Admin: 09/06/22 14:09 Dose: 999 mls/hr Documented By: RDD Acetaminophen (Ofirmev) 1,000 mg in 100 mls @ 400 mls/hr IV NOW STA Stop: 09/06/22 17:15 Last Admin: 09/06/22 17:09 Dose: 400 mls/hr Documented By: RDD Morphine Sulfate (Morphine Sulfate 2 Mg/Ml Carp) 2 mg IV NOW STA Stop: 09/06/22 17:02 Last Admin: 09/06/22 17:09 Dose: 2 mg Documented By: RDD Imaging Data Radiologist's Impression: Chest X-Ray 09/06/22 13:35 SINGLE VIEW CHEST CLINICAL HISTORY: Cough. FINDINGS: 2 AP, portable, upright chest radiographs are compared to study dated 09/11/2021. Correlation is made with chest CT dated 01/05/2020. The examination is degraded by portable technique, large body habitus, and apical lordotic positioning. The cardiomediastinal silhouette is top normal for projection. There is mild elevation of the right hemidiaphragm and bibasilar atelectasis. The lungs and pleural spaces are otherwise clear. No pneumothorax is seen. The bony thorax is grossly intact. IMPRESSION: No active disease in the chest. ACT 112: Negative or not required by law. Electronically signed by: Jaydon Wallace M.D. 09/06/2022 1:57 PM Discharge Plan Visit Data Chief Complaint: Chest Pain Stated Complaint: CHEST PAIN,COUGH ED Provider: Jaydon Brewer Discharge Problem: Precordial chest pain, Tachycardia, Flu-like symptoms, Elevated troponin, RSV (respiratory syncytial virus infection) Patient Disposition: Admitted As Inpatient Condition: Fair Forms Stand Alone Forms: My [facility] [address] Prescriptions Prescriptions: No Action insulin aspart U-100 [Novolog Flexpen U-100 Insulin] 100 unit/mL (3 mL) insulin pen 12 unit subcut TIDM dicyclomine 10 mg capsule 10 mg PO QID PRN (Reason: Diarrhea) famotidine 20 mg tablet 20 mg PO HS pantoprazole 40 mg tablet,delayed release (DR/EC) 40 mg PO BID docusate sodium [Col-Rite] 100 mg capsule 100 mg PO BID PRN (Reason: Constipation) Advil Dual Action 125-250 mg Tablet 3 tab PO BID losartan 50 mg tablet 50 mg PO QAM metformin 500 mg tablet 1,000 mg PO BID Trulicity 4.5 mg/0.5 mL pen injector 4.5 mg SUBCUT FR cyclobenzaprine 10 mg tablet 10 mg PO HS PRN (Reason: Muscle Spasm) gabapentin 100 mg capsule 200 mg PO HS gabapentin 100 mg capsule 100 mg PO QAM metoclopramide HCl 10 mg tablet 10 mg PO TIDM insulin glargine [Lantus Solostar U-100 Insulin] 100 unit/mL (3 mL) insulin pen 22 unit SUBCUT QAM insulin glargine [Lantus Solostar U-100 Insulin] 100 unit/mL (3 mL) insulin pen 27 unit SUBCUT HS Referrals Referrals: Velasquez Valencia MD [Primary Care Provider] -
[2022-09-06 16:19] LABS: Influenza A virus by PCR Negative (Neg); Influenza B virus by PCR Negative (Neg); SARS CoV2 RNA(COVID-19)Cepheid NEGATIVE (Negative)
[2022-09-06 16:56] LABS: RSV by PCR Positive (Neg)
[2022-09-06] MEDS ORDERED: ACETAMINOPHEN 1,000 MG/100 ML VIAL IV STA (17:01)
[2022-09-06] MEDS ORDERED: MoRPHine SULFATE 2 MG/ML CARP IV STA (17:01)
--- NOTE | 2022-09-06 18:24 | History & Physical Report ---
Date of Service September 06, 2022 Assessment & Plan (1) Flu-like symptoms: (2) RSV (respiratory syncytial virus infection): Plan: 46 y/o M with PMH DM II, depression, HTN, gastroparesis, tobacco use, h/o DVT, adjustment disorder with depressed mood, sleep apnea, esophagitis and intellectual disabilitypresent to the ER withcough, runny nose and some eye watering associated with chest pain. Testing positive RSV on admission CXR showed no active disease in the chest. COVID-19 and influenza A & B negative Continue supportive treatment cough medicine, nasal saline and incentive spirometry Continue monitor closely Chest pain Mild elevated troponin Mostly costochondritis from cough Atypical presentation Chest pain reproducible on exam Need to r/o ACS due to history DM type, Smoker, obesity and HTN Troponin on admission 30, then slightly increased to 49.9 EKG showed no acute ischemic changes Will trend troponin Will get an echo in am We will repeat EKG in a.m. no aspirin added due to history of hematemesis cardiology consult N.p.o. after midnight in case patient need any additional cardiac testing Continue monitor in tele Transaminitis LFTs elevated with AST 60 and ALT 101 Denies any abdominal pain Lipase is normal We will monitor liver enzymes Diabetes type 2 Most recent hemoglobin A1c 8.2 back in November 2021 We will check hemoglobin A1c in a.m. We will hold metformin and Trulicity Lantus and insulin sliding scales Monitor BS Tobacco abuse Counseling on smoking cessation Nicotine patch added Obstructive sleep apnea CPAP if patient continues to use it at home Hypertension Continue losartan 50 mg daily Continue monitor BP GI prophylaxis PPI twice daily DVT prophylaxis Heparin subcu and SCD Patient had hx of a hematemesis noted in the chart but EGD in the past was unremarkable CODE STATUS full code History of Present Illness Chief Complaint: chest pain Primary Care Provider: Velasquez Valencia MD 46 y/o M with PMH DM II, depression, HTN, gastroparesis, tobacco use, h/o DVT, adjustment disorder with depressed mood, sleep apnea, esophagitis and intellectual disabilitypresent to the ER with cough, runny nose and some eye watering.Pt said that symptoms started about 3 days ago. He said that today he developed left sided chest pain that radiated to his back. He said that chest pain worsening with coughing and deep breathing. he described the chest pain as achiness, constant, grade 6 out 10 in intensity. He said that he became SOB with exertion. He said that he has been having watery diarrhea. 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 In the ER he was tested positive for RSV. He said that he smokes 1 pack plus daily. Denies any fever, dizziness, weakness, and palpitation. Allergies Allergy/AdvReac Type Severity Reaction Status Date / Time Cephalosporins Allergy Unknown Unknown Verified 09/06/22 13:25 NSAIDS (Non-Steroidal AdvReac Intermediate gastroparesis, Verified 09/06/22 13:25 Anti-Inflamma kidney problems Home Medications Medication Instructions Recorded Confirmed Type insulin aspart U-100 100 unit/mL 12 unit subcut TIDM 06/09/19 09/06/22 History (3 mL) subcutaneous pen (Novolog Flexpen U-100 Insulin aspart) dicyclomine 10 mg capsule 10 mg PO QID PRN Diarrhea 05/01/20 09/06/22 History famotidine 20 mg tablet 20 mg PO HS 07/13/20 09/06/22 History docusate sodium 100 mg capsule 100 mg PO BID PRN Constipation 02/25/21 09/06/22 History (Col-Rite) ibuprofen 125 mg-acetaminophen 250 3 tab PO BID 02/25/21 09/06/22 History mg tablet (Advil Dual Action) pantoprazole 40 mg tablet,delayed 40 mg PO BID 02/25/21 09/06/22 History release losartan 50 mg tablet 50 mg PO QAM 08/26/21 09/06/22 History metformin 500 mg tablet 1,000 mg PO BID 08/26/21 09/06/22 History dulaglutide 4.5 mg/0.5 mL 4.5 mg subcut FR 09/11/21 09/06/22 History subcutaneous pen injector (Trulicity) cyclobenzaprine 10 mg tablet 10 mg PO HS PRN Muscle Spasm 09/06/22 09/06/22 History gabapentin 100 mg capsule 100 mg PO QAM 09/06/22 09/06/22 History gabapentin 100 mg capsule 200 mg PO HS 09/06/22 09/06/22 History insulin glargine 100 unit/mL (3 22 unit subcut QAM 09/06/22 09/06/22 History mL) subcutaneous pen (Lantus Solostar U-100 Insulin) insulin glargine 100 unit/mL (3 27 unit subcut HS 09/06/22 09/06/22 History mL) subcutaneous pen (Lantus Solostar U-100 Insulin) metoclopramide HCl 10 mg tablet 10 mg PO TIDM 09/06/22 09/06/22 History Past Med/Surg History Medical History Acquired claw toe of left foot Acquired claw toe of right foot Acquired hallux valgus of right foot Adjustment disorder with depressed mood Cardiac murmur A CHILD Deep vein thrombosis 5 YEARS AGO (? REASON/WAS ON ANTICOAGS FOR A SHORT TIME) Diabetes mellitus with diabetic polyneuropathy Diabetes mellitus with neurological manifestation "Diabetic neuropathy reported in hands and feet" Diabetes mellitus, type 2 Erectile dysfunction Esophagitis Gastroparesis GERD (gastroesophageal reflux disease) Hallux valgus (acquired), left foot History of ventricular tachycardia "nonsustained" HTN (hypertension) Hx of pancreatitis resolved Hypertension IBS (irritable bowel syndrome) Intellectual disability MRSA (methicillin resistant Staphylococcus aureus) carrier over 2 yrs ago Nicotine dependence Obesity Obstructive sleep apnea no cpap Osteoarthritis Peripheral neuropathy Surgical History H/O foot surgery LEFT-2018 History of arthroscopy LEFT [id number] History of colonoscopy History of esophagogastroduodenoscopy (EGD) History of nasal septoplasty 09/25/21-Dr. Garcia History of reduction of nasal fracture 09/25/21-Dr. Garcia History of shoulder surgery right-2019 History of tonsillectomy and adenoidectomy 1979 History of tooth extraction Status post incision and drainage LLE Family History Brother Family history of diabetes mellitus Environmental allergies Asthma Mother Family history of diabetes mellitus Hypertension Environmental allergies Father Family history of diabetes mellitus Hypertension Heart disease Grandfather (Paternal) Lung cancer smoker Aunt Bleeding disorder Other No family history of adverse response to anesthesia Social History Smoking Status: Current every day smoker Tobacco Type: Cigarettes Age Started Using Tobacco: 14; Cigarettes Per Day: 30-40; Second Hand Exposure: Yes; Do You Dip or Chew Tobacco: No; Tobacco Cessation Education Requested by Patient: No Hx Alcohol Use: Yes Alcohol type: beer Alcohol Intake Frequency: Monthly or Less Alcohol Intake Frequency Comment: seldom, a couple times per year if that per pt Hx Substance Use: No Preferred Language: Russian Communication Ability: Effective Parole Or Probation Officer Required: No Beliefs That Will Affect Care: None marital status: Single marital status details: single at this time Current Living Situation: Significant Other Current Living Situation Comment: house current occupational status: employed 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 Other Information That Helps Us Care for You: No other: girlfriend able to assist with dressing changes and care as needed Feels Safe at Home: Yes Safety Concerns: Feels Safe At This Time during the past year weight has: remained stable Assistive Devices: None Review of Systems Review of Systems: All systems reviewed & are unremarkable except as noted in HPI & below Physical Exam Physical Exam: General- No acute distress Head- atraumatic Eyes- PERRL, EOMI, ENT- oropharynx clear Neck- supple, no JVD Lungs- No wheezing, no rhonchi Chest wall: tender with palpation ( mid and left side of the chest) Heart- regular rhythm; no murmur Abdomen- normal bowel sounds, soft, nontender Extremities- no calf tenderness Neuro- alert, oriented x 3; PERRL, EOMI; no facial palsy; no dysarthria Skin- warm & dry Results & Data Results & Data ([facility]) Vital Signs (Past 12 Hours) Vital Signs Temp Pulse Resp BP Pulse Ox O2 Del Method 09/06/22 16:00 104 H 18 09/06/22 16:00 141/85 H 09/06/22 15:30 103 H 20 09/06/22 15:30 139/68 09/06/22 15:00 103 H 15 09/06/22 15:00 141/85 H 09/06/22 14:30 105 H 13 09/06/22 14:30 143/84 H 09/06/22 14:00 108 H 15 95 09/06/22 14:00 135/72 09/06/22 13:55 110 H 13 97 09/06/22 13:18 90 19 98 Room Air 09/06/22 13:07 Room Air 09/06/22 13:07 Room Air 09/06/22 13:03 36.7 C 115 H 18 154/79 H 93 Room Air Diagnostic Findings Laboratory Results WBC 7.05 K/ul (4.8-10.8) 09/06/22 13:21 RBC 5.14 M/uL (4.63-6.08) 09/06/22 13:21 Hgb 14.4 g/dl (14.0-18.0) 09/06/22 13:21 Hct 43.3 % (40.1-51.0) 09/06/22 13:21 MCV 84.2 fL (80.0-100.0) 09/06/22 13:21 MCH 28.0 pg (25.0-34.0) 09/06/22 13:21 MCHC 33.3 g/dL (32.0-36.0) 09/06/22 13:21 RDW Std Deviation 40.6 fL (36.4-46.3) 09/06/22 13:21 RDW Coeff of Abiodun 13.1 % (11.5-14.5) 09/06/22 13:21 Plt Count 218 K/uL (130-400) 09/06/22 13:21 MPV 9.6 fL (9.4-12.4) 09/06/22 13:21 Immature Gran % (Auto) 1.8 % 09/06/22 13:21 Neut % (Auto) 52.5 % 09/06/22 13:21 Lymph % (Auto) 23.4 % 09/06/22 13:21 [place] % (Auto) 13.0 % 09/06/22 13:21 Eos % (Auto) 8.2 % 09/06/22 13:21 Baso % (Auto) 1.1 % 09/06/22 13:21 Neut # (Auto) 3.69 K/uL (1.4-6.5) 09/06/22 13:21 Lymph # (Auto) 1.65 K/uL (1.2-3.4) 09/06/22 13:21 [place] # (Auto) 0.92 K/uL (0.24-0.82) H 09/06/22 13:21 Eos # (Auto) 0.58 K/uL (0-0.50) H 09/06/22 13:21 Baso # (Auto) 0.08 K/uL (0-0.2) 09/06/22 13:21 Immature Gran # (Auto) 0.13 K/uL (0.00-0.02) H 09/06/22 13:21 Sodium 138 mmol/L (136-145) 09/06/22 13:21 Potassium 4.0 mmol/L (3.5-5.1) 09/06/22 13:21 Chloride 102 mmol/L (98-107) 09/06/22 13:21 Carbon Dioxide 30 mmol/L (21-32) 09/06/22 13:21 Anion Gap 6 (3-11) 09/06/22 13:21 BUN 19 mg/dl (6-23) 09/06/22 13:21 Creatinine 0.79 mg/dl (0.6-1.4) 09/06/22 13:21 Est Cr Clr Drug Dosing 178.0 ml/min 09/06/22 13:21 Est GFR ( Amer) 123.1 ml/min 09/06/22 13:21 Est GFR (Non-Af Amer) 106.2 ml/min 09/06/22 13:21 BUN/Creatinine Ratio 24.1 (10-20) H 09/06/22 13:21 Glucose 171 mg/dl (70-99(Fasting)) H 09/06/22 13:21 Calcium 9.3 mg/dl (8.5-10.1) 09/06/22 13:21 Total Bilirubin 0.5 mg/dl (0.2-1.0) 09/06/22 13:21 AST 60 U/L (13-39) H 09/06/22 13:21 ALT 101 U/L (7-52) H 09/06/22 13:21 Alkaline Phosphatase 63 U/L (34-104) 09/06/22 13:21 Troponin I High Sens 49.9 pg/ml (0-20) H D 09/06/22 15:27 Total Protein 7.0 gm/dl (6.0-8.3) 09/06/22 13:21 Albumin 4.1 gm/dl (3.4-5.0) 09/06/22 13:21 Globulin 2.9 gm/dl (2.5-4.0) 09/06/22 13:21 Albumin/Globulin Ratio 1.4 (0.9-2) 09/06/22 13:21 Lipase 31 U/L (11-82) 09/06/22 13:21 SARS-CoV-2 (PCR) NEGATIVE (Negative) 09/06/22 13:38 Influenza Type A (PCR) Negative (Neg) 09/06/22 13:38 Influenza Type B (PCR) Negative (Neg) 09/06/22 13:38 RSV (RT-PCR) Positive (Neg) A* 09/06/22 13:38 Impressions Chest X-Ray 09/06/22 13:35 SINGLE VIEW CHEST CLINICAL HISTORY: Cough. FINDINGS: 2 AP, portable, upright chest radiographs are compared to study dated 09/11/2021. Correlation is made with chest CT dated 01/05/2020. The examination is degraded by portable technique, large body habitus, and apical lordotic positioning. The cardiomediastinal silhouette is top normal for projection. There is mild elevation of the right hemidiaphragm and bibasilar atelectasis. The lungs and pleural spaces are otherwise clear. No pneumothorax is seen. The bony thorax is grossly intact. IMPRESSION: No active disease in the chest. ACT 112: Negative or not required by law. Electronically signed by: Jaydon Wallace M.D. 09/06/2022 1:57 PM Code Status & VTE Plan VTE Prophylaxis Plan VTE Prophylaxis will be ordered: Yes
[2022-09-06] MEDS ORDERED: MAGNESIUM SULFATE / D5W 1 GM/100 ML BAG IV ONE (19:24)
[2022-09-06] MEDS ORDERED: DEXTROSE 50% 50 ML SYRINGE IV PRN (20:21)
[2022-09-06] MEDS ORDERED: guaiFENesin/CODEINE 100MG/10MG 5ML UDC PO PRN (20:21)
[2022-09-06] MEDS ORDERED: SODIUM CHLORIDE 0.65% NA SOLN 45 ML (OCEAN) PRN (20:21)
[2022-09-06] MEDS ORDERED: CYCLOBENZAPRINE HCL 10 MG TAB PO PRN (20:21)
[2022-09-06] MEDS ORDERED: CARBOHYDRATES FOR HYPOGLYCEMIA PO PRN (20:21)
[2022-09-06] MEDS ORDERED: GLUCOSE 40% GEL 15 GM TUBE PO PRN (20:21)
[2022-09-06] MEDS ORDERED: GLUCAGON FOR INJ 1 MG VIAL SQ PRN (20:21)
[2022-09-06] MEDS ORDERED: GLUCOSE 10 TAB/TUBE PO PRN (20:21)
[2022-09-06] MEDS ORDERED: FAMOTIDINE 20 MG TAB PO SCH (21:00)
[2022-09-06] MEDS ORDERED: GABAPENTIN 100 MG CAP PO SCH (21:00)
[2022-09-06 21:37] LABS: Partial Thromboplastin Time 28.1 Seconds (21.0-31.0)
[2022-09-06] MEDS: INSULIN ASPART PER UNIT SC SCH (21:53)
[2022-09-06] MEDS: LANTUS PER UNIT CHARGE SQ SCH (21:54)
[2022-09-06] MEDS: HEPARIN SOD 5,000 UNIT/0.5 ML VIAL SQ SCH (22:00)
[2022-09-06] MEDS: PANTOprazole 40 MG TAB PO SCH (22:01)
[2022-09-06] MEDS ORDERED: NITROGLYCERIN SL 0.4 MG/TAB TAB SL STA (22:25)
[2022-09-06] MEDS ORDERED: MoRPHine SULFATE 2 MG/ML CARP IV PRN (22:25)
[2022-09-06] MEDS ORDERED: traMADol HCL 50 MG TABLET PO PRN (22:25)
[2022-09-06] MEDS ORDERED: NITROGLYCERIN SL 0.4 MG/TAB TAB ONE (22:28)
--- NOTE | 2022-09-06 22:44 | Communication Note ---
Date of Service: September 06, 2022 Patient asking for morphine for chest pain similar to ED presentation. No response to nitroglycerin as per RN. Troponin 70 (from 49 from 30) AP Chest pain Troponin progression Rule out PE CT chest PE study
[2022-09-07] MEDS ORDERED: SODIUM CHLORIDE 0.9% 1000ML 1,000 ML IV ONE (00:07)
[2022-09-07] MEDS ORDERED: MAGNESIUM SULFATE / D5W 1 GM/100 ML BAG IV ONE (00:08)
[2022-09-07] MEDS ORDERED: OPTIRAY 320 500ml IV ONE (01:24)
[2022-09-07 06:56] LABS: Troponin I High Sensitivity 64.9 pg/ml (0-20)
[2022-09-07 06:59] LABS: Albumin Globulin Ratio 1.3 (0.9-2); Albumin Level 3.7 gm/dl (3.4-5.0); BUN Creatinine Ratio 15.3 (10-20); Bilirubin,Total 0.6 mg/dl (0.2-1.0); Calcium 8.7 mg/dl (8.5-10.1); Chol HDL Ratio 6.6 (0-5); Creatinine Clr Calc Pharmacy 159.6 ml/min; Est GFR (African American) 119.4 ml/min; Globulin 2.8 gm/dl (2.5-4.0); Magnesium 1.8 mg/dl (1.7-2.4); Potassium 4.2 mmol/L (3.5-5.1); Total Protein 6.5 gm/dl (6.0-8.3)
[2022-09-07 07:26] LABS: Estimated Average Glucose 203 mg/dl; Hemoglobin A1C 8.7 % (4.5-5.6)
[2022-09-07] MEDS ORDERED: MoRPHine SULFATE 2 MG/ML CARP IV PRN (08:13)
[2022-09-07] MEDS: HEPARIN SOD 5,000 UNIT/0.5 ML VIAL SQ SCH (08:34)
[2022-09-07] MEDS: METOCLOPRAMIDE HCL 10 MG TABLET PO SCH ×2 (08:34→13:14)
[2022-09-07] MEDS: PANTOprazole 40 MG TAB PO SCH (08:34)
[2022-09-07] MEDS: INSULIN ASPART PER UNIT SC SCH ×2 (08:43→13:29)
[2022-09-07] MEDS: LANTUS PER UNIT CHARGE SQ SCH (08:44)
--- NOTE | 2022-09-07 08:56 | CT Scan Report ---
CT ANGIOGRAM OF THE CHEST CLINICAL HISTORY: Atypical chest pain. COMPARISON STUDY: Chest x-ray dated 09/06/2022. Chest CT dated 01/05/2020. TECHNIQUE: Following the IV administration of 115 cc of Optiray 320, CT angiogram of the chest was pe rformed from the upper abdomen to the thoracic inlet utilizing the pulmonary embolus protocol. Images are reviewed in the axial, sagittal, and coronal planes. 3-D MIPS images are created and assessed. I V contrast was administered without complication. A dose lowering technique was utilized adhering to the principles of ALARA. CT DOSE: 980.96 mGy.cm FINDINGS: Thyroid: Imaged portions of the thyroid gland are normal in size and attenuation. Thoracic aorta: The thoracic aorta is normal in caliber and demonstrates standard 3-vessel arch anato my. No dissection is seen. Pulmonary vasculature: The pulmonary trunk is normal in caliber. There are no filling defects identif ied in main, lobar, or segmental pulmonary branches to suggest pulmonary embolus. Heart: The heart is normal in size and without pericardial effusion. Lungs and pleural spaces: There are coronary artery calcifications. There is no airspace consolidatio n or pleural effusion. Scarring/atelectasis is noted at the lung bases. There are scattered calcified granulomas. The trachea and central airways appear clear. Mediastinum: Numerous subcentimeter mediastinal lymph nodes are not pathologically enlarged by size c riteria. Daysi: Clear. Axillae: There is no axillary lymphadenopathy. Upper abdomen: There is hepatic steatosis. A small hiatal hernia is noted. Skeletal structures: No lytic or blastic bony lesions are seen. IMPRESSION: 1. There is no evidence of pulmonary embolus in the main, lobar, or segmental pulmonary arteries. 2. There is no airspace consolidation or pleural effusion. 3. Hepatic steatosis. 4. Coronary artery calcifications. 5. Additional findings as above. ACT 112: Negative or not required by law. Electronically signed by: Jaydon Wallace M.D. 09/07/2022 8:53 AM
[2022-09-07] MEDS ORDERED: NICOTINE 21 MG/24 HR TDSY TD SCH (09:00)
[2022-09-07] MEDS ORDERED: Flu Vaccine (Fluarix) 0.5mL SYR (Standard Dose) IM ONE (09:00)
[2022-09-07] MEDS ORDERED: GABAPENTIN 100 MG CAP PO SCH (09:00)
[2022-09-07] MEDS ORDERED: PNEUMOCOCCAL Polysaccharide Vaccine 25mcg/0.5mL vial/Syr IM ONE (09:00)
[2022-09-07] MEDS ORDERED: LOSARTAN POTASSIUM 50 MG TAB PO SCH (09:00)
--- NOTE | 2022-09-07 11:55 | Cardiology Consultation ---
Date of Consultation September 07, 2022 Assessment & Plan (1) RSV (respiratory syncytial virus infection): (2) Precordial chest pain: (3) Elevated troponin: (4) Tachycardia: - Patient presents with reproducible chest discomfort. Pain elicited on palpation of the left sternal costal margin, in the setting of viral respiratory illness, coughing for over 3 days. -I believe the mild elevation in his high-sensitivity troponin is due to underlying sinus tachycardia, and myocardial strain from his underlying respiratory illness. -Serial EKG tracings are unremarkable with the exception of sinus tachycardia with rate of about 110 bpm on EKG tracings as well as on telemetry. -Echocardiogram performed today reveals no pericardial effusion, normal biventricular systolic function, no regional wall motion abnormalities. -Of note, patient had been admitted to [facility] in November, with findings of sinus tachycardia and atypical chest discomfort at that time. An exercise stress echocardiogram was performed, but was equivocal due to low exercise tolerance. Further cardiac work-up was pursued under the guidance of Dr. Correa of our practice as an outpatient including a Zio patch monitor worn in November, revealed sinus tachycardia, average rate 112 bpm. -A follow-up dobutamine stress echocardiogram performed in Feb, 2022 was negative for ischemia. -Per review of outpatient record the patient is supposed to be on metoprolol succinate 50 mg daily for treatment of his sinus tachycardia. He is not on this at present, and I have therefore ordered it. -I recommend ongoing supportive care for his respiratory illness. -No further cardiac testing felt to be indicated at present. -Of note, given his cardiac risk factors I believe his LDL cholesterol goal should be less than 100, and ideally less than 70. LDL cholesterol as measured this morning was 111 mg/dL, with measurement of 160 mg/dL as an outpatient in August,. Per review of outpatient chart, he had been on atorvastatin from 2006 up until 2018, his prescription for atorvastatin 40 mg daily was discontinued in April,, details unknown. Would recommend trial of another statin, perhaps rosuvastatin to be initiated after his viral aches and pains resolve. 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 Yeung for the evaluation of chest discomfort. The patient notes onset of flulike symptoms with cough 3 days ago. He presented to the emergency room yesterday afternoon with concerns of chest discomfort reproduced with deep inspiration and with coughing. Besides his cough he also notes runny nose and watery eyes. At present, patient is resting comfortably in bed, no acute complaints. Sinus tachycardia with heart rate in the range of 100 to 111 bpm present on telemetry. Past Medical History: Obesity, BMI 44 kg/m Type 2 diabetes mellitus Hypertension Dyslipidemia Family History: Father of presumed coronary heart disease Social History: Daily cigarette smoker Allergies Allergy/AdvReac Type Severity Reaction Status Date / Time Cephalosporins Allergy Unknown Unknown Verified 09/06/22 13:25 NSAIDS (Non-Steroidal AdvReac Intermediate gastroparesis, Verified 09/06/22 13:25 Anti-Inflamma kidney problems Home Medications Medication Instructions Recorded Confirmed Type insulin aspart U-100 100 unit/mL 12 unit subcut TIDM 06/09/19 09/06/22 History (3 mL) subcutaneous pen (Novolog Flexpen U-100 Insulin aspart) dicyclomine 10 mg capsule 10 mg PO QID PRN Diarrhea 05/01/20 09/06/22 History famotidine 20 mg tablet 20 mg PO HS 07/13/20 09/06/22 History docusate sodium 100 mg capsule 100 mg PO BID PRN Constipation 02/25/21 09/06/22 History (Col-Rite) ibuprofen 125 mg-acetaminophen 250 3 tab PO BID 02/25/21 09/06/22 History mg tablet (Advil Dual Action) pantoprazole 40 mg tablet,delayed 40 mg PO BID 02/25/21 09/06/22 History release losartan 50 mg tablet 50 mg PO QAM 08/26/21 09/06/22 History metformin 500 mg tablet 1,000 mg PO BID 08/26/21 09/06/22 History dulaglutide 4.5 mg/0.5 mL 4.5 mg subcut FR 09/11/21 09/06/22 History subcutaneous pen injector (Trulicity) cyclobenzaprine 10 mg tablet 10 mg PO HS PRN Muscle Spasm 09/06/22 09/06/22 History gabapentin 100 mg capsule 100 mg PO QAM 09/06/22 09/06/22 History gabapentin 100 mg capsule 200 mg PO HS 09/06/22 09/06/22 History insulin glargine 100 unit/mL (3 22 unit subcut QAM 09/06/22 09/06/22 History mL) subcutaneous pen (Lantus Solostar U-100 Insulin) insulin glargine 100 unit/mL (3 27 unit subcut HS 09/06/22 09/06/22 History mL) subcutaneous pen (Lantus Solostar U-100 Insulin) metoclopramide HCl 10 mg tablet 10 mg PO TIDM 09/06/22 09/06/22 History Patient History Medical History Acquired claw toe of left foot Acquired claw toe of right foot Acquired hallux valgus of right foot Adjustment disorder with depressed mood Cardiac murmur A CHILD Deep vein thrombosis 5 YEARS AGO (? REASON/WAS ON ANTICOAGS FOR A SHORT TIME) Diabetes mellitus with diabetic polyneuropathy Diabetes mellitus with neurological manifestation "Diabetic neuropathy reported in hands and feet" Diabetes mellitus, type 2 Erectile dysfunction Esophagitis Gastroparesis GERD (gastroesophageal reflux disease) Hallux valgus (acquired), left foot History of ventricular tachycardia "nonsustained" HTN (hypertension) Hx of pancreatitis resolved Hypertension IBS (irritable bowel syndrome) Intellectual disability MRSA (methicillin resistant Staphylococcus aureus) carrier over 2 yrs ago Nicotine dependence Obesity Obstructive sleep apnea no cpap Osteoarthritis Peripheral neuropathy Surgical History H/O foot surgery LEFT-2018 History of arthroscopy LEFT [id number] History of colonoscopy History of esophagogastroduodenoscopy (EGD) History of nasal septoplasty 09/25/21-Dr. Garcia History of reduction of nasal fracture 09/25/21-Dr. Garcia History of shoulder surgery right-2019 History of tonsillectomy and adenoidectomy 1979 History of tooth extraction Status post incision and drainage LLE Family History Brother Family history of diabetes mellitus Environmental allergies Asthma Mother Family history of diabetes mellitus Hypertension Environmental allergies Father Family history of diabetes mellitus Hypertension Heart disease Grandfather (Paternal) Lung cancer smoker Aunt Bleeding disorder Other No family history of adverse response to anesthesia Social History Smoking Status: Current every day smoker Tobacco Type: Cigarettes Age Started Using Tobacco: 14; Cigarettes Per Day: 30-40; Second Hand Exposure: Yes; Do You Dip or Chew Tobacco: No; Tobacco Cessation Education Requested by Patient: No Hx Alcohol Use: Yes Alcohol type: beer Alcohol Intake Frequency: Monthly or Less Alcohol Intake Frequency Comment: seldom, a couple times per year if that per pt Hx Substance Use: No Preferred Language: [place] Communication Ability: Effective Health Coordinator Required: No Beliefs That Will Affect Care: None marital status: Single marital status details: single at this time Current Living Situation: Significant Other Current Living Situation Comment: house current occupational status: employed 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 Other Information That Helps Us Care for You: No other: girlfriend able to assist with dressing changes and care as needed Feels Safe at Home: Yes Safety Concerns: Feels Safe At This Time during the past year weight has: remained stable Assistive Devices: None Review of Systems Review of Systems: All systems reviewed & are unremarkable except as noted in HPI & below Physical Exam Physical Exam: Temp Pulse Resp BP Pulse Ox O2 Del Method 37.0 C 111 H 20 164/91 H 94 09/07/22 11:43 09/07/22 11:43 09/07/22 11:43 09/07/22 11:43 09/07/22 11:43 09/07/22 11:43 Constitutional: + morbidly obese; no acute distress Respiratory: normal respiratory effort, lungs clear to auscultation Cardiovascular: Rate/Rhythm: regular rhythm and + tachycardic Extremities: no edema Gastrointestinal (Abdomen): normal bowel sounds, soft, nontender, no hepa tosplenomegaly Neurologic: PERRL, EOMI, accommodation nl, no face palsy, no dysarthria Results & Data ([facility]) Vital Signs (Past 12 Hours) Vital Signs Temp Pulse Resp BP Pulse Ox O2 Del Method 09/07/22 11:43 37.0 C 111 H 20 164/91 H 94 Room Air 09/07/22 07:01 Room Air 09/07/22 07:34 37.1 C 111 H 19 159/95 H 93 Room Air 09/07/22 03:37 36.7 C 105 H 18 138/76 94 Room Air Laboratory Results Cardiac Enzymes 09/06/22 09/06/22 09/06/22 Range/Units 13:21 15:27 20:51 AST 60 H (13-39) U/L Troponin I High Sens 30.5 H 49.9 H D 70.6 H* D (0-20) pg/ml 09/07/22 Range/Units 05:54 AST 81 H (13-39) U/L Troponin I High Sens 64.9 H* (0-20) pg/ml Coagulation 09/06/22 Range/Units 20:51 APTT 28.1 (21.0-31.0) Seconds Lipids 09/07/22 Range/Units 05:54 Triglycerides 375 H (0-150) mg/dl Cholesterol 219 H (0-200) mg/dl HDL Cholesterol 33 mg/dl Cholesterol/HDL Ratio 6.6 H (0-5) CBC 09/06/22 Range/Units 13:21 WBC 7.05 (4.8-10.8) K/ul RBC 5.14 (4.63-6.08) M/uL Hgb 14.4 (14.0-18.0) g/dl Hct 43.3 (40.1-51.0) % Plt Count 218 (130-400) K/uL Neut # (Auto) 3.69 (1.4-6.5) K/uL Lymph # (Auto) 1.65 (1.2-3.4) K/uL [place] # (Auto) 0.92 H (0.24-0.82) K/uL Eos # (Auto) 0.58 H (0-0.50) K/uL Baso # (Auto) 0.08 (0-0.2) K/uL Comprehensive Metabolic Panel 09/06/22 09/07/22 Range/Units 13:21 05:54 Sodium 138 138 (136-145) mmol/L Potassium 4.0 4.2 (3.5-5.1) mmol/L Chloride 102 102 (98-107) mmol/L Carbon Dioxide 30 31 (21-32) mmol/L BUN 19 13 (6-23) mg/dl Creatinine 0.79 0.85 (0.6-1.4) mg/dl Glucose 171 H 154 H (70-99(Fasting)) mg/dl Calcium 9.3 8.7 (8.5-10.1) mg/dl AST 60 H 81 H (13-39) U/L ALT 101 H 119 H (7-52) U/L Alkaline Phosphatase 63 57 (34-104) U/L Total Protein 7.0 6.5 (6.0-8.3) gm/dl Albumin 4.1 3.7 (3.4-5.0) gm/dl Intake and Output 09/06/22 09/07/22 09/07/22 22:59 06:59 14:59 Intake Total 1100 / 1300 200 / 1300 Balance 1100 / 1300 200 / 1300 Intake: IV 1100 / 1300 200 / 1300 Acetaminophen 1,000 mg In 100 100 / 100 ml @ 400 mls/hr IV NOW STA Rx#: [id number] Magnesium Sulfate / D5w 1 gm In 200 / 200 100 ml @ 50 mls/hr IV ONE ONE Rx#:[id number] Sodium Chloride 0.9% 1000ML 1, 1000 / 1000 000 ml @ 999 mls/hr IV .Q1H1M ONE Rx#:[id number] Other: Weight 144 kg 149 kg Weight Measurement Method Built in [facility] Built in [facility]
[2022-09-07] MEDS ORDERED: METOPROLOL SUCC 50MG EXT REL TAB PO SCH (12:00)
[2022-09-07] MEDS ORDERED: LIDOCAINE 5% 1 PATCH TD SCH (13:25)
--- NOTE | 2022-09-07 14:36 | Discharge Summary ---
Date of Service September 07, 2022 Admission HPI Per Admitting Provider 46 y/o M with PMH DM II, depression, HTN, gastroparesis, tobacco use, h/o DVT, adjustment disorder with depressed mood, sleep apnea, esophagitis and intellectual disabilitypresent to the ER with cough, runny nose and some eye watering.Pt said that symptoms started about 3 days ago. He said that today he developed left sided chest pain that radiated to his back. He said that chest pain worsening with coughing and deep breathing. he described the chest pain as achiness, constant, grade 6 out 10 in intensity. He said that he became SOB with exertion. He said that he has been having watery diarrhea. 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 In the ER he was tested positive for RSV. He said that he smokes 1 pack plus daily. Denies any fever, dizziness, weakness, and palpitation. Admission Exam Per Admitting Provider General- No acute distress Head- atraumatic Eyes- PERRL, EOMI, ENT- oropharynx clear Neck- supple, no JVD Lungs- No wheezing, no rhonchi Chest wall: tender with palpation ( mid and left side of the chest) Heart- regular rhythm; no murmur Abdomen- normal bowel sounds, soft, nontender Extremities- no calf tenderness Neuro- alert, oriented x 3; PERRL, EOMI; no facial palsy; no dysarthria Skin- warm & dry Principal Diagnosis (1) RSV (respiratory syncytial virus infection): (2) Precordial chest pain: (3) Elevated troponin: (4) Tachycardia: (5) Tobacco abuse Discharge Exam General- No acute distress Head- atraumatic Eyes- PERRL, EOMI, ENT- oropharynx clear Neck- supple, no JVD Lungs- No wheezing, no rhonchi Chest wall: tender with palpation ( mid and left side of the chest) Heart- regular rhythm; no murmur Abdomen- normal bowel sounds, soft, nontender Extremities- no calf tenderness Neuro- alert, oriented x 3; PERRL, EOMI; no facial palsy; no dysarthria Skin- warm & dry Discharge Data Allergies Allergy/AdvReac Type Severity Reaction Status Date / Time Cephalosporins Allergy Unknown Unknown Verified 09/06/22 13:25 NSAIDS (Non-Steroidal AdvReac Intermediate gastroparesis, Verified 09/06/22 13:25 Anti-Inflamma kidney problems Consultations 09/06/22 17:07 ED Decision to Admit Stat 09/06/22 20:21 Consult Cardiology Routine Ordered Studies 09/06/22 22:44 CT angio chest PE protocol Stat Laboratory Results WBC 7.05 K/ul (4.8-10.8) 09/06/22 13:21 RBC 5.14 M/uL (4.63-6.08) 09/06/22 13:21 Hgb 14.4 g/dl (14.0-18.0) 09/06/22 13:21 Hct 43.3 % (40.1-51.0) 09/06/22 13:21 MCV 84.2 fL (80.0-100.0) 09/06/22 13:21 MCH 28.0 pg (25.0-34.0) 09/06/22 13:21 MCHC 33.3 g/dL (32.0-36.0) 09/06/22 13:21 RDW Std Deviation 40.6 fL (36.4-46.3) 09/06/22 13:21 RDW Coeff of Abiodun 13.1 % (11.5-14.5) 09/06/22 13:21 Plt Count 218 K/uL (130-400) 09/06/22 13:21 MPV 9.6 fL (9.4-12.4) 09/06/22 13:21 Immature Gran % (Auto) 1.8 % 09/06/22 13:21 Neut % (Auto) 52.5 % 09/06/22 13:21 Lymph % (Auto) 23.4 % 09/06/22 13:21 [place] % (Auto) 13.0 % 09/06/22 13:21 Eos % (Auto) 8.2 % 09/06/22 13:21 Baso % (Auto) 1.1 % 09/06/22 13:21 Neut # (Auto) 3.69 K/uL (1.4-6.5) 09/06/22 13:21 Lymph # (Auto) 1.65 K/uL (1.2-3.4) 09/06/22 13:21 [place] # (Auto) 0.92 K/uL (0.24-0.82) H 09/06/22 13:21 Eos # (Auto) 0.58 K/uL (0-0.50) H 09/06/22 13:21 Baso # (Auto) 0.08 K/uL (0-0.2) 09/06/22 13:21 Immature Gran # (Auto) 0.13 K/uL (0.00-0.02) H 09/06/22 13:21 APTT 28.1 Seconds (21.0-31.0) 09/06/22 20:51 PTT Ratio 1.0 09/06/22 20:51 Sodium 138 mmol/L (136-145) 09/07/22 05:54 Potassium 4.2 mmol/L (3.5-5.1) 09/07/22 05:54 Chloride 102 mmol/L (98-107) 09/07/22 05:54 Carbon Dioxide 31 mmol/L (21-32) 09/07/22 05:54 Anion Gap 5 (3-11) 09/07/22 05:54 BUN 13 mg/dl (6-23) 09/07/22 05:54 Creatinine 0.85 mg/dl (0.6-1.4) 09/07/22 05:54 Est Cr Clr Drug Dosing 159.6 ml/min 09/07/22 05:54 Est GFR ( Amer) 119.4 ml/min 09/07/22 05:54 Est GFR (Non-Af Amer) 103.0 ml/min 09/07/22 05:54 BUN/Creatinine Ratio 15.3 (10-20) 09/07/22 05:54 Glucose 154 mg/dl (70-99(Fasting)) H 09/07/22 05:54 POC Glucose 131 mg/dl (70-99) H 09/07/22 11:35 Estimat Average Glucose 203 mg/dl 09/07/22 05:41 Hemoglobin A1c 8.7 % (4.5-5.6) H 09/07/22 05:41 Calcium 8.7 mg/dl (8.5-10.1) 09/07/22 05:54 Magnesium 1.8 mg/dl (1.7-2.4) 09/07/22 05:54 Total Bilirubin 0.6 mg/dl (0.2-1.0) 09/07/22 05:54 AST 81 U/L (13-39) H 09/07/22 05:54 ALT 119 U/L (7-52) H 09/07/22 05:54 Alkaline Phosphatase 57 U/L (34-104) 09/07/22 05:54 Troponin I High Sens 64.9 pg/ml (0-20) H* 09/07/22 05:54 Total Protein 6.5 gm/dl (6.0-8.3) 09/07/22 05:54 Albumin 3.7 gm/dl (3.4-5.0) 09/07/22 05:54 Globulin 2.8 gm/dl (2.5-4.0) 09/07/22 05:54 Albumin/Globulin Ratio 1.3 (0.9-2) 09/07/22 05:54 Triglycerides 375 mg/dl (0-150) H 09/07/22 05:54 Cholesterol 219 mg/dl (0-200) H 09/07/22 05:54 LDL Cholesterol, Calc 111 mg/dl 09/07/22 05:54 VLDL Cholesterol, Calc 75 mg/dl (0-30) H 09/07/22 05:54 HDL Cholesterol 33 mg/dl 09/07/22 05:54 Cholesterol/HDL Ratio 6.6 (0-5) H 09/07/22 05:54 Lipase 31 U/L (11-82) 09/06/22 13:21 SARS-CoV-2 (PCR) NEGATIVE (Negative) 09/06/22 13:38 Influenza Type A (PCR) Negative (Neg) 09/06/22 13:38 Influenza Type B (PCR) Negative (Neg) 09/06/22 13:38 RSV (RT-PCR) Positive (Neg) A* 09/06/22 13:38 Impressions Chest X-Ray 09/06/22 13:35 SINGLE VIEW CHEST CLINICAL HISTORY: Cough. FINDINGS: 2 AP, portable, upright chest radiographs are compared to study dated 09/11/2021. Correlation is made with chest CT dated 01/05/2020. The examination is degraded by portable technique, large body habitus, and apical lordotic positioning. The cardiomediastinal silhouette is top normal for projection. There is mild elevation of the right hemidiaphragm and bibasilar atelectasis. The lungs and pleural spaces are otherwise clear. No pneumothorax is seen. The bony thorax is grossly intact. IMPRESSION: No active disease in the chest. ACT 112: Negative or not required by law. Electronically signed by: Jaydon Wallace M.D. 09/06/2022 1:57 PM Chest CTA 09/06/22 22:44 CT ANGIOGRAM OF THE CHEST CLINICAL HISTORY: Atypical chest pain. COMPARISON STUDY: Chest x-ray dated 09/06/2022. Chest CT dated 01/05/2020. TECHNIQUE: Following the IV administration of 115 cc of Optiray 320, CT angiogram of the chest was performed from the upper abdomen to the thoracic inlet utilizing the pulmonary embolus protocol. Images are reviewed in the axial, sagittal, and coronal planes. 3-D MIPS images are created and assessed. IV contrast was administered without complication. A dose lowering technique was utilized adhering to the principles of ALARA. CT DOSE: 980.96 mGy.cm FINDINGS: Thyroid: Imaged portions of the thyroid gland are normal in size and attenuation. Thoracic aorta: The thoracic aorta is normal in caliber and demonstrates standard 3-vessel arch anatomy. No dissection is seen. Pulmonary vasculature: The pulmonary trunk is normal in caliber. There are no filling defects identified in main, lobar, or segmental pulmonary branches to suggest pulmonary embolus. Heart: The heart is normal in size and without pericardial effusion. Lungs and pleural spaces: There are coronary artery calcifications. There is no airspace consolidation or pleural effusion. Scarring/atelectasis is noted at the lung bases. There are scattered calcified granulomas. The trachea and central airways appear clear. Mediastinum: Numerous subcentimeter mediastinal lymph nodes are not pathologically enlarged by size criteria. Daysi: Clear. Axillae: There is no axillary lymphadenopathy. Upper abdomen: There is hepatic steatosis. A small hiatal hernia is noted. Skeletal structures: No lytic or blastic bony lesions are seen. IMPRESSION: 1. There is no evidence of pulmonary embolus in the main, lobar, or segmental pulmonary arteries. 2. There is no airspace consolidation or pleural effusion. 3. Hepatic steatosis. 4. Coronary artery calcifications. 5. Additional findings as above. ACT 112: Negative or not required by law. Electronically signed by: Jaydon Wallace M.D. 09/07/2022 8:53 AM Hospital Course (1) Flu-like symptoms: (2) RSV (respiratory syncytial virus infection): 46 y/o M with PMH DM II, depression, HTN, gastroparesis, tobacco use, h/o DVT, adjustment disorder with depressed mood, sleep apnea, esophagitis and intellectual disabilitypresent to the ER withcough, runny nose and some eye watering associated with chest pain. Testing positive RSV on admission CXR showed no active disease in the chest. COVID-19 and influenza A & B negative Continue supportive treatment cough medicine, nasal saline and incentive spirometry Pt was advised to seek medical attention if symptoms worsening or developed any SOB Chest pain Mild elevated troponin Mostly costochondritis from cough Atypical presentation Chest pain reproducible on exam Need to r/o ACS due to history DM type, Smoker, obesity and HTN Troponin on admission 30, then peaked to 70 and now trending down to 64 EKG showed no acute ischemic changes Echo showed no LV wall motion abnormality with EF 60-65 % no aspirin added due to history of hematemesis cardiology consulted started on metoprolol 50mg No additional testing as per cardio Follow up with cardiology outpatient Transaminitis LFTs mildly elevated Denies any abdominal pain Lipase is normal Check Liver enzymes in 1 week Diabetes type 2 Most recent hemoglobin A1c 8.7 ( 2021) resumed metformin and Trulicity on discharge Lantus and insulin sliding scale during hospital course Monitor BS Tobacco abuse Counseling on smoking cessation Nicotine patch added Obstructive sleep apnea CPAP if patient continues to use it at home Hypertension Continue losartan 50 mg daily Continue monitor BP GI prophylaxis PPI twice daily DVT prophylaxis Heparin subcu and SCD Patient had hx of a hematemesis noted in the chart but EGD in the past was unremarkable CODE STATUS full code Total Time Total Time Spent Total Time Spent (In Minutes): 35 minutes Discharge Plan Discharge Items Patient Disposition: Home - Self-Care Reason For Visit: CHEST PAIN Discharge Diagnosis: (1) RSV (respiratory syncytial virus infection): (2) Precordial chest pain: (3) Elevated troponin: (4) Tachycardia: (5) Tobacco abuse Condition on Discharge: Fair Activity: Resume your previous activity Non-emergency contact: Primary Care Provider and Atomic Spectroscopist Call non-emergency contact if: you have any medication questions, your symptoms worsen and your temperature is above 101 Follow-up/Referrals: Velasquez Valencia MD [Primary Care Provider] - (Date & Time 09/14/2022 9:40 AM Provider Velasquez Valencia MD Department [facility] ) Diet: Heart Healthy Addtl Attending Provider Instructions: Follow up with your primary care provider 09/14/2022 @ 9:40 AM Velasquez Valencia MD Department [facility] Follow up with cardiology outpatient ( please call to schedule for follow up appointment ) Continue monitor your blood sugar and bring your blood sugar log at your next appointment with your provider Continue monitor your blood pressure and bring your blood pressure log at your next appointment with your provider Check CMP in 1 week to monitor your liver enzymes Your provider will need to start you on statin ( like rosuvastatin) once liver enzymes and chest wall pain improve Counseling on smoking cessation Seek medical attention if your symptoms worsening or develop any shortness of breath Pending Studies at Discharge: No Stand-Alone Forms: My [facility] [employer], Smoking Cessation Medications and DC Order Prescriptions: New metoprolol succinate 50 mg Tablet Extended Release 24 Hr 50 mg PO QAM Qty: 30 0RF Saline Mist 0.65 % Aerosol,[place] 2 spray NA Q4H PRN (Reason: nasal congestion) Qty: 44 0RF benzonatate 200 mg capsule 200 mg PO TID PRN (Reason: cough) Qty: 30 0RF Continued insulin aspart U-100 [Novolog Flexpen U-100 Insulin] 100 unit/mL (3 mL) insulin pen 12 unit subcut TIDM dicyclomine 10 mg capsule 10 mg PO QID PRN (Reason: Diarrhea) famotidine 20 mg tablet 20 mg PO HS pantoprazole 40 mg tablet,delayed release (DR/EC) 40 mg PO BID docusate sodium [Col-Rite] 100 mg capsule 100 mg PO BID PRN (Reason: Constipation) Advil Dual Action 125-250 mg Tablet 3 tab PO BID losartan 50 mg tablet 50 mg PO QAM metformin 500 mg tablet 1,000 mg PO BID Trulicity 4.5 mg/0.5 mL pen injector 4.5 mg SUBCUT FR cyclobenzaprine 10 mg tablet 10 mg PO HS PRN (Reason: Muscle Spasm) gabapentin 100 mg capsule 200 mg PO HS gabapentin 100 mg capsule 100 mg PO QAM metoclopramide HCl 10 mg tablet 10 mg PO TIDM insulin glargine [Lantus Solostar U-100 Insulin] 100 unit/mL (3 mL) insulin pen 22 unit SUBCUT QAM insulin glargine [Lantus Solostar U-100 Insulin] 100 unit/mL (3 mL) insulin pen 27 unit SUBCUT HS Discharge Orders: Discharge Order (Routine); Ordered 09/07/22 Ordered By: Sepideh Lopez/Other Patient Handouts: Managing Type 2 Diabetes, Special Foot Care for Diabetes Admission Data Admit Date/Time: 09/06/22 18:12 Attending Provider: Sepideh Yeung Admit Provider: Sepideh Yeung Primary Care Provider: Velasquez Valencia Other Providers: Sepideh Yeung ; Eugenio Salvador Other Interventions: Discharge Summary Assessment (RN) Last Done: 09/07/22 15:58
--- NOTE | 2022-09-08 06:04 | Electrocardiogram Report ---
Test Reason : Blood Pressure : / mmHG Vent. Rate : 115 BPM Atrial Rate : 115 BPM P-R Int : 154 ms QRS Dur : 100 ms QT Int : 338 ms P-R-T Axes : 069 -13 058 degrees QTc Int : 467 ms Sinus tachycardia Otherwise normal ECG When compared with ECG of 04-SEP-2020 17:57, No significant change was found Confirmed by Brandin Guerra ([id number]) on 09/08/2022 6:03:59 AM Referred By: Confirmed By:Brandin Guerra
--- NOTE | 2022-09-09 06:26 | Electrocardiogram Report ---
Test Reason : Blood Pressure : / mmHG Vent. Rate : 112 BPM Atrial Rate : 112 BPM P-R Int : 154 ms QRS Dur : 098 ms QT Int : 346 ms P-R-T Axes : 059 013 039 degrees QTc Int : 472 ms Sinus tachycardia Otherwise normal ECG When compared with ECG of 06-SEP-2022 13:10, No significant change was found Confirmed by Brandin Guerra ([id number]) on 09/09/2022 6:26:12 AM Referred By: REFERRED SELF Confirmed By:Brandin Guerra
== END 2022-09-07 16:27 | disposition home or self-care (01) ==
LOC: 2S 12:56 → ED 12:56 → 2S 19:58

== ENCOUNTER 2022-09-14 13:12 | Inpatient (IN) ==
[2022-09-14 14:12] LABS: Basophils # (auto) 0.05 K/uL (0-0.2); Basophils % (auto) 0.7 %; Eosinophils # (auto) 0.01 K/uL (0-0.50); Eosinophils % (auto) 0.1 %; Hematocrit (blood only) 45.8 % (40.1-51.0); Hemoglobin 15.2 g/dl (14.0-18.0); Immature Granulocytes % (auto) 1.4 %; Lymphocytes # (auto) 1.14 K/uL (1.2-3.4); Lymphocytes % (auto) 15.6 %; Mean Corpuscular Hemoglobin 27.9 pg (25.0-34.0); Mean Corpuscular Hgb Conc 33.2 g/dL (32.0-36.0); Mean Platelet Volume 9.5 fL (9.4-12.4); Monocytes # (auto) 0.62 K/uL (0.24-0.82); Monocytes % (auto) 8.5 %; Neutrophils # (auto) 5.38 K/uL (1.4-6.5); Neutrophils % (auto) 73.7 %; Platelet Count 249 K/uL (130-400); RDW Coefficient of Variation 13.2 % (11.5-14.5); RDW Standard Deviation 39.8 fL (36.4-46.3); Red Blood Count 5.45 M/uL (4.63-6.08)
[2022-09-14 14:26] LABS: Partial Thromboplastin Time 26.2 Seconds (21.0-31.0); Prothrombin Time 10.8 Seconds (9.0-12.0)
[2022-09-14 14:30] LABS: Influenza B virus by PCR Negative (Neg); RSV by PCR Negative (Neg); SARS CoV2 RNA(COVID-19) Ceph NEGATIVE (Negative)
[2022-09-14 14:33] LABS: Albumin Globulin Ratio 1.2 (0.9-2); Albumin Level 4.4 gm/dl (3.4-5.0); BUN Creatinine Ratio 28.3 (10-20); Bilirubin,Total 0.4 mg/dl (0.2-1.0); Calcium 10.1 mg/dl (8.5-10.1); Est GFR (African American) 113.6 ml/min; Globulin 3.7 gm/dl (2.5-4.0); Magnesium 1.4 mg/dl (1.7-2.4); Potassium 4.3 mmol/L (3.5-5.1); Total Protein 8.1 gm/dl (6.0-8.3)
[2022-09-14 14:42] LABS: Influenza A virus by PCR Positive (Neg)
--- NOTE | 2022-09-14 16:34 | Electrocardiogram Report ---
Test Reason : Blood Pressure : / mmHG Vent. Rate : 115 BPM Atrial Rate : 115 BPM P-R Int : 128 ms QRS Dur : 090 ms QT Int : 326 ms P-R-T Axes : 047 019 033 degrees QTc Int : 450 ms Poor data quality, interpretation may be adversely affected Sinus tachycardia Incomplete right bundle branch block Abnormal ECG When compared with ECG of 07-SEP-2022 07:31, No significant change was found Confirmed by Nba Wallace ([id number]) on 09/14/2022 4:34:05 PM Referred By: Confirmed By:David Wallace
[2022-09-14] MEDS ORDERED: ALBUT/IPRATROP 3MG/0.5MG NEB 3 ML VIAL NEB STA (16:37)
--- NOTE | 2022-09-14 17:33 | CT Scan Report ---
CT head/brain wo con CLINICAL HISTORY: 46 years-old Male with syncope, chi. Acute head injury status post fall with synco pe TECHNIQUE: Multiple axial CT images of the head were obtained without contrast. A dose lowering tech nique was utilized adhering to the principles of ALARA. CT DOSE: 691.05 mGy.cm COMPARISON: 09/11/2021 FINDINGS: No acute intracranial hemorrhage, midline shift, intracranial mass, hydrocephalus, territorial ischem ia or abnormal extra-axial collection. The calvarium is intact. Small posterior scalp contusions. The paranasal sinuses, mastoid air cells, and middle ear cavities are clear. IMPRESSION: 1. No acute intracranial abnormality or calvarial fracture. 2. Small posterior scalp contusions. ACT 112: Negative or not required by law. The above report was generated using voice recognition software. It may contain grammatical, syntax o r spelling errors. Electronically signed by: Gil Hilliard M.D. 09/14/2022 5:32 PM
[2022-09-14] MEDS: MAGNESIUM SULFATE / D5W 1 GM/100 ML BAG IV SCH ×2 (18:59→20:02)
[2022-09-14] MEDS ORDERED: SODIUM CHLORIDE 0.9% 1000ML 1,000 ML IV ONE (19:00)
--- NOTE | 2022-09-14 19:14 | Emergency Department Note ---
History of Present Illness General Chief complaint: Shortness of Breath/Dyspnea Stated complaint: SOB Time Seen by Provider: 09/14/22 16:37 Source: patient Mode of arrival: ambulatory Limitations: no limitations History of Present Illness Provider complaint: increased sob, flu exposure Maximum Pain Intensity: 8 This is a 46-year-old male who presents emergency department due to concern for increased shortness of breath. Patient states he was recently admitted here with RSV. He states he was discharged home and was feeling improved a day or 2, and then started feeling worse again. He states he followed up with his PCP and was started on steroids and given an inhaler. Patient does continue to smoke. He states he was using the inhaler frequently did not feel it was helping and he was taking the steroids as prescribed which she has previously taken. He states he was to follow-up again today however at home he had an episode of syncope as he remembers being in bed, waking up, and then the next thing he knew he was waking up on the floor. He states he is pretty certain he hit his head in the process. No prior history of syncope. Patient states his girlfriend is currently admitted with influenza and he is concerned he now has that additionally. Patient reports checking his pulse ox at home and it was found to be 88%. Patient does not typically wear home oxygen. Patient initially seen in a sub waiting room area as he presented on day of high volume and acuity. Home Medications Medication Instructions Recorded Confirmed Type insulin aspart U-100 100 unit/mL 12 unit subcut TIDM 06/09/19 09/06/22 History (3 mL) subcutaneous pen (Novolog Flexpen U-100 Insulin aspart) dicyclomine 10 mg capsule 10 mg PO QID PRN Diarrhea 05/01/20 09/06/22 History famotidine 20 mg tablet 20 mg PO HS 07/13/20 09/06/22 History docusate sodium 100 mg capsule 100 mg PO BID PRN Constipation 02/25/21 09/06/22 History (Col-Rite) ibuprofen 125 mg-acetaminophen 250 3 tab PO BID 02/25/21 09/06/22 History mg tablet (Advil Dual Action) pantoprazole 40 mg tablet,delayed 40 mg PO BID 02/25/21 09/06/22 History release losartan 50 mg tablet 50 mg PO QAM 08/26/21 09/06/22 History metformin 500 mg tablet 1,000 mg PO BID 08/26/21 09/06/22 History dulaglutide 4.5 mg/0.5 mL 4.5 mg subcut FR 09/11/21 09/06/22 History subcutaneous pen injector (Trulicity) cyclobenzaprine 10 mg tablet 10 mg PO HS PRN Muscle Spasm 09/06/22 09/06/22 History gabapentin 100 mg capsule 100 mg PO QAM 09/06/22 09/06/22 History gabapentin 100 mg capsule 200 mg PO HS 09/06/22 09/06/22 History insulin glargine 100 unit/mL (3 22 unit subcut QAM 09/06/22 09/06/22 History mL) subcutaneous pen (Lantus Solostar U-100 Insulin) insulin glargine 100 unit/mL (3 27 unit subcut HS 09/06/22 09/06/22 History mL) subcutaneous pen (Lantus Solostar U-100 Insulin) metoclopramide HCl 10 mg tablet 10 mg PO TIDM 09/06/22 09/06/22 History benzonatate 200 mg capsule 200 mg PO TID PRN cough #30 caps 09/07/22 Rx metoprolol succinate 50 mg 50 mg PO QAM #30 tabs 09/07/22 Rx tablet,extended release 24 hr sodium chloride 0.65 % nasal spray 2 spray NA Q4H PRN nasal 09/07/22 Rx aerosol (Saline Mist) congestion #44 mL Allergies Allergy/AdvReac Type Severity Reaction Status Date / Time Cephalosporins Allergy Unknown Unknown Verified 09/06/22 13:25 NSAIDS (Non-Steroidal AdvReac Intermediate gastroparesis, Verified 09/06/22 13:25 Anti-Inflamma kidney problems Past Med/Surg History Medical History Acquired claw toe of left foot Acquired claw toe of right foot Acquired hallux valgus of right foot Adjustment disorder with depressed mood Cardiac murmur A CHILD Deep vein thrombosis 5 YEARS AGO (? 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 Garcia History of reduction of nasal fracture 09/25/21-Dr. Garcia History of shoulder surgery right-2019 History of tonsillectomy and adenoidectomy 1979 History of tooth extraction Status post incision and drainage LLE Family History Brother Family history of diabetes mellitus Environmental allergies Asthma Mother Family history of diabetes mellitus Hypertension Environmental allergies Father Family history of diabetes mellitus Hypertension Heart disease Grandfather (Paternal) Lung cancer smoker Aunt Bleeding disorder Other No family history of adverse response to anesthesia Social History Smoking Status: Current every day smoker Tobacco Type: Cigarettes Age Started Using Tobacco: 14; Cigarettes Per Day: 30-40; Second Hand Exposure: Yes; Do You Dip or Chew Tobacco: No; Tobacco Cessation Education Requested by Patient: No Hx Alcohol Use: Yes Alcohol type: beer Alcohol Intake Frequency: Monthly or Less Alcohol Intake Frequency Comment: seldom, a couple times per year if that per pt Hx Substance Use: No Preferred Language: Wolof Communication Ability: Effective Design Checker Required: No Beliefs That Will Affect Care: None marital status: Single marital status details: single at this time Current Living Situation: Significant Other Current Living Situation Comment: house current occupational status: employed 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 Other Information That Helps Us Care for You: No other: girlfriend able to assist with dressing changes and care as needed Feels Safe at Home: Yes during the past year weight has: remained stable Assistive Devices: None Review of Systems A total of 10 systems reviewed and were otherwise negative All systems reviewed & are unremarkable except as noted in HPI & below Physical Exam Vital Signs Vital Signs - 24 hr 09/14/22 13:28 09/14/22 19:07 09/14/22 19:07 Temperature 36.9 C Temperature Source Oral Pulse Rate 114 H Pulse Rate [Finger] 106 H Pulse Rhythm [Finger] Regular Pulse Strength [Finger] Normal Respiratory Rate 22 21 Respiratory Effort / Characteristics Non-Labored Non-Labored Respiratory Depth Normal Normal Respiratory Pattern Regular Regular Blood Pressure 178/84 H Blood Pressure [Right Arm] 152/95 H Blood Pressure Mean 115 Blood Pressure Mean [Right Arm] 114 Pulse Oximetry 94 94 95 Oxygen Delivery Method Room Air Room Air Room Air Sepsis Recent Fever Within 48 Hours No Sepsis New/Unexplained Change in Mental Status No Sepsis Action Taken by Nursing No Action Required 09/14/22 19:08 Temperature Temperature Source Pulse Rate Pulse Rate [Finger] Pulse Rhythm [Finger] Pulse Strength [Finger] Respiratory Rate Respiratory Effort / Characteristics Respiratory Depth Respiratory Pattern Blood Pressure Blood Pressure [Right Arm] Blood Pressure Mean Blood Pressure Mean [Right Arm] Pulse Oximetry 95 Oxygen Delivery Method Room Air Sepsis Recent Fever Within 48 Hours Sepsis New/Unexplained Change in Mental Status Sepsis Action Taken by Nursing GENERAL: alert, well appearing, well nourished, no distress, non-toxic, BMI>49 EYE EXAM: normal conjunctiva, PERRL and EOM's grossly intact OROPHARYNX: no exudate, no erythema, lips, buccal mucosa, and tongue normal and mucous membranes are moist NECK: supple, no nuchal rigidity, no adenopathy, non-tender LUNGS: Clear to auscultation. Normal chest wall mechanics, no w/r/r, coarse cough noted during exam HEART: no murmurs, S1 normal and S2 normal ABDOMEN: abdomen soft, non-tender, normo-active bowel sounds, no masses, no rebound or guarding. BACK: Back is symmetrical on inspection and there is no deformity, no midline tenderness, no CVA tenderness. SKIN: no rashes and no bruising UPPER EXTREMITIES: upper extremities are grossly normal. FROM, nml pulses b/l. LOWER EXTREMITIES: No pitting edema. FROM, nml pulses b/l. NEURO EXAM: Normal sensorium, cranial nerves II-XII grossly intact, normal speech, no gross weakness of arms, no gross weakness of legs. Gross sensation intact. Course Administered Medications Acetaminophen (Acetaminophen 325 Mg Tab) 650 mg PO Q4H PRN PRN Reason: Pain or Fever Stop: 10/14/22 22:51 Last Admin: 09/16/22 21:55 Dose: 650 mg Documented By: Admin: 09/16/22 16:47 Dose: 650 mg Documented By: ROSA ISELA Admin: 09/15/22 21:50 Dose: 650 mg Documented By: Admin: 09/15/22 14:00 Dose: 650 mg Documented By: Admin: 09/15/22 00:53 Dose: 650 mg Documented By: OMER Benzonatate (Benzonatate 100 Mg Capsule) 200 mg PO TID PRN PRN Reason: cough Stop: 10/14/22 22:51 Last Admin: 09/16/22 21:55 Dose: 200 mg Documented By: Admin: 09/15/22 21:50 Dose: 200 mg Documented By: KAITLIN Enoxaparin Sodium (Enoxaparin Inj 40 Mg/0.4 Ml Syr) 40 mg SQ Q12H SOPHIA Stop: 10/15/22 05:59 Last Admin: 09/16/22 17:21 Dose: 40 mg Documented By: ROSA ISELA Admin: 09/16/22 06:27 Dose: 40 mg Documented By: Admin: 09/15/22 17:54 Dose: 40 mg Documented By: Admin: 09/15/22 05:17 Dose: 40 mg Documented By: OMER Famotidine (Famotidine 20 Mg Tab) [address] [facility] Stop: 10/15/22 00:14 Last Admin: 09/16/22 22:59 Dose: 20 mg Documented By: Admin: 09/15/22 21:42 Dose: 20 mg Documented By: Admin: 09/15/22 00:45 Dose: 20 mg Documented By: OMER Gabapentin (Gabapentin 100 Mg Cap) 200 mg PO SOPHAI Stop: 10/15/22 00:14 Last Admin: 09/16/22 21:55 Dose: 200 mg Documented By: Admin: 09/15/22 21:41 Dose: 200 mg Documented By: Admin: 09/15/22 00:45 Dose: 200 mg Documented By: OMER Gabapentin (Gabapentin 100 Mg Cap) 100 mg PO QA SOPHIA Stop: 10/15/22 08:59 Last Admin: 09/16/22 09:35 Dose: 100 mg Documented By: ROSA ISELA Admin: 09/15/22 09:19 Dose: 100 mg Documented By: SAIMA Guaifenesin/Codeine Phosphate (Guaifenesin/Codeine 100mg/10mg 5ml Udc) 5 ml PO Q6H SOPHIA Stop: 10/16/22 22:59 Last Admin: 09/17/22 05:26 Dose: 5 ml Documented By: Admin: 09/16/22 23:11 Dose: 5 ml Documented By: KAITLIN Insulin Aspart (Insulin Aspart Per Unit) 0 units SC ACHS [facility] Stop: 10/15/22 00:14 Last Admin: 09/16/22 20:46 Dose: Not Given Documented By: Admin: 09/16/22 16:53 Dose: 7 units Documented By: ROSA ISELA Co-signed By: MAICO Admin: 09/16/22 12:16 Dose: 5 units Documented By: ROSA ISELA Co-signed By: Admin: 09/16/22 09:41 Dose: Not Given Documented By: ROSA ISELA Admin: 09/15/22 21:31 Dose: Not Given Documented By: Admin: 09/15/22 17:52 Dose: 8 units Documented By: SAIMA Co-signed By: KATEY Admin: 09/15/22 12:08 Dose: 6 units Documented By: SAIMA Co-signed By: SADE Admin: 09/15/22 10:39 Dose: 7 units Documented By: SAIMA Co-signed By: KATEY Admin: 09/15/22 00:43 Dose: 1 units Documented By: OMER Co-signed By: ROYA Insulin Glargine (Lantus Per Unit Charge) 15 units SQ BID [facility] Stop: 10/15/22 00:14 Last Admin: 09/16/22 21:48 Dose: 15 units Documented By: KAITLIN Co-signed By: RODRÍGUEZ Admin: 09/16/22 12:12 Dose: 15 units Documented By: ROSA ISELA Co-signed By: Admin: 09/15/22 21:35 Dose: 15 units Documented By: KAITLIN Co-signed By: RODRÍGUEZ Admin: 09/15/22 09:28 Dose: 15 units Documented By: SAIMA Co-signed By: SADE Admin: 09/15/22 00:43 Dose: 15 units Documented By: OMER Co-signed By: ROYA Losartan Potassium (Losartan Potassium 50 Mg Tab) 50 mg PO QAM [facility] Stop: 10/15/22 08:59 Last Admin: 09/16/22 09:33 Dose: 50 mg Documented By: ROSA ISELA Admin: 09/15/22 09:19 Dose: 50 mg Documented By: SAIMA Metoprolol Succinate (Metoprolol Succ 50mg Ext Rel Tab) 50 mg PO QAM [facility] Stop: 10/15/22 08:59 Last Admin: 09/16/22 09:33 Dose: 50 mg Documented By: ROSA ISELA Admin: 09/15/22 09:19 Dose: 50 mg Documented By: SAIMA Metoprolol Succinate (Metoprolol Succ 25mg Ext Rel Tab) 25 mg PO QPM [facility] Stop: 10/16/22 20:59 Last Admin: 09/16/22 22:59 Dose: 25 mg Documented By: KAITLIN Miscellaneous (Remove Nicoderm Patch) 1 each N/A DAILY@0859 [facility] Stop: 10/16/22 08:58 Last Admin: 09/16/22 09:28 Dose: Not Given Documented By: ROSA ISELA Nicotine (Nicotine 21 Mg/24 Hr Tdsy) 21 mg TD QAM [facility] Stop: 10/16/22 08:59 Last Admin: 09/16/22 09:40 Dose: Not Given Documented By: ROSA ISELA Oseltamivir Phosphate (Oseltamivir Phosphate 75 Mg Cap) 75 mg PO BID [facility]; Protocol Stop: 09/20/22 00:14 Last Admin: 09/16/22 23:00 Dose: 75 mg Documented By: Admin: 09/16/22 09:32 Dose: 75 mg Documented By: ROSA ISELA Admin: 09/15/22 21:41 Dose: 75 mg Documented By: Admin: 09/15/22 09:19 Dose: 75 mg Documented By: Admin: 09/15/22 00:44 Dose: 75 mg Documented By: OMER Pantoprazole Sodium (Pantoprazole 40 Mg Tab) 40 mg PO BID [facility] Stop: 10/15/22 00:14 Last Admin: 09/16/22 22:59 Dose: 40 mg Documented By: Admin: 09/16/22 09:32 Dose: 40 mg Documented By: ROSA ISELA Admin: 09/15/22 21:42 Dose: 40 mg Documented By: Admin: 09/15/22 09:18 Dose: 40 mg Documented By: Admin: 09/15/22 00:45 Dose: 40 mg Documented By: OMER Tramadol HCl (Tramadol Hcl 50 Mg Tablet) 25 - 50 mg PO Q4H PRN PRN Reason: Pain Stop: 10/16/22 21:25 Last Admin: 09/16/22 21:54 Dose: 50 mg Documented By: EL Discontinued Medications Albuterol (Albut/Ipratrop 3mg/0.5mg Neb 3 Ml Vial) 3 ml NEB NOW STA; Protocol Stop: 09/14/22 16:38 Last Admin: 09/14/22 19:52 Dose: 3 ml Documented By: KATI Albuterol (Albut/Ipratrop 3mg/0.5mg Neb 3 Ml Vial) Confirm Administered Dose 3 ml .ROUTE .STK-MED ONE Stop: 09/14/22 19:52 Last Admin: 09/14/22 19:54 Dose: Not Given Documented By: KATI Guaifenesin/Codeine Phosphate (Guaifenesin/Codeine 100mg/10mg 5ml Udc) 5 ml PO Q6H PRN PRN Reason: Cough Stop: 10/14/22 22:51 Last Admin: 09/15/22 09:52 Dose: 5 ml Documented By: Admin: 09/15/22 01:55 Dose: 5 ml Documented By: MOER Magnesium Sulfate/Dextrose (Magnesium Sulfate / D5w) 1 gm in 100 mls @ 100 mls/hr IV Q1H SOPHIA Stop: 09/14/22 20:49 Last Infusion: 09/14/22 21:25 Dose: 0 mls/hr Documented By: Admin: 09/14/22 20:02 Dose: 100 mls/hr Documented By: Infusion: 09/14/22 19:59 Dose: 100 mls/hr Documented By: Admin: 09/14/22 18:59 Dose: 100 mls/hr Documented By: KATI Sodium Chloride (Nss 1000ml) 1,000 mls @ 999 mls/hr IV .Q1H1M ONE Stop: 09/14/22 20:00 Last Infusion: 09/14/22 20:05 Dose: 0 mls/hr Documented By: Admin: 09/14/22 19:03 Dose: 999 mls/hr Documented By: KATI Sodium Chloride (Nss 1000ml) 1,000 mls @ 75 mls/hr IV .[id number] SOPHIA Stop: 09/15/22 13:34 Last Infusion: 09/15/22 14:39 Dose: 0 mls/hr Documented By: Admin: 09/15/22 00:46 Dose: 75 mls/hr Documented By: TMAshleigh Magnesium Sulfate/Dextrose (Magnesium Sulfate / D5w) 1 gm in 100 mls @ 50 mls/hr IV ONE ONE Stop: 09/15/22 10:23 Last Infusion: 09/15/22 11:28 Dose: 0 mls/hr Documented By: Admin: 09/15/22 09:28 Dose: 50 mls/hr Documented By: SAIMA Ioversol (Optiray 320 500ml) 112 ml IV ONCE ONE Stop: 09/14/22 21:09 Last Admin: 09/14/22 21:08 Dose: 112 ml Documented By: JAYSON Ipratropium Mcfall (Ipratropium [place]fall Neb Soln 0.02% 2.5 Ml Vial) 0.5 mg INH NOW ONE Stop: 09/16/22 22:35 Last Admin: 09/16/22 22:48 Dose: 0.5 mg Documented By: CLIFFORD Levalbuterol HCl (Levalbuterol 1.25mg/0.5ml Neb) 1.25 mg INH NOW ONE Stop: 09/16/22 22:35 Last Admin: 09/16/22 22:48 Dose: 1.25 mg Documented By: CLIFFORD Tramadol HCl (Tramadol Hcl 50 Mg Tablet) 50 mg PO NOW STA Stop: 09/15/22 18:37 Last Admin: 09/15/22 18:44 Dose: 50 mg Documented By: SAIMA Tramadol HCl (Tramadol Hcl 50 Mg Tablet) 50 mg PO NOW STA Stop: 09/16/22 13:37 Last Admin: 09/16/22 13:58 Dose: 50 mg Documented By: ROSA ISELA Medical Decision Making Differential Diagnosis Viral syndrome, strep pharyngitis, tonsillitis, mononucleosis, retropharyngeal abscess, peritonsillar abscess, otitis media, sinusitis, bronchitis, pneumonia, as well as other pathologies. Medical Records Attestation: I reviewed the patient's medical records. Home Medications Current Medication List: was personally reviewed by me Laboratory Data Attestation: I reviewed the patient's lab results. Result diagrams: 09/16/22 08:07 09/16/22 22:27 Lab Results 09/14/22 09/14/22 Range/Units 13:38 19:48 Troponin I High Sens 11.6 D (0-20) pg/ml SARS-CoV-2 (PCR) NEGATIVE (Negative) Influenza Type A (PCR) Positive A* (Neg) Influenza Type B (PCR) Negative (Neg) RSV (RT-PCR) Negative (Neg) Imaging Data Radiologist's Impression: Head CT 09/14/22 16:55 CT head/brain wo con CLINICAL HISTORY: 46 years-old Male with syncope, chi. Acute head injury status post fall with syncope TECHNIQUE: Multiple axial CT images of the head were obtained without contrast. A dose lowering technique was utilized adhering to the principles of ALARA. CT DOSE: 691.05 mGy.cm COMPARISON: 09/11/2021 FINDINGS: No acute intracranial hemorrhage, midline shift, intracranial mass, hydrocephalus, territorial ischemia or abnormal extra-axial collection. The calvarium is intact. Small posterior scalp contusions. The paranasal sinuses, mastoid air cells, and middle ear cavities are clear. IMPRESSION: 1. No acute intracranial abnormality or calvarial fracture. 2. Small posterior scalp contusions. ACT 112: Negative or not required by law. The above report was generated using voice recognition software. It may contain grammatical, syntax or spelling errors. Electronically signed by: Gil Hilliard M.D. 09/14/2022 5:32 PM ECG Data Attestation: I personally reviewed and interpreted this ECG as follows: Indication: + SOB/dyspnea Rate (beats per minute): 115 Rhythm: + sinus tachycardia ECG Intervals/blocks: + Normal QRS and + Normal QT ECG [place]: + Normal ECG ST segments: + Nonspecific ST abnormalities MDM Narrative An order was placed for continuous cardiac monitoring. The monitor shows a rate of _111_ with _sinus tachycardia__ rhythm. This is a 46-year-old male with a history of tobacco abuse and recent RSV infection who now presents due to concern for worsening respiratory symptoms despite outpatient initiation of MDI and steroids, recent flu exposure, as well as a syncopal event today. Patient seen in waiting room area initially as there were no available beds. Labs were drawn and sent, vital signs checked. Patient was not hypoxic while seated, he did have obvious dyspnea with any exertion and reported with his home pulse oximeter he was 88%. Patient found to be fluid positive likely from the recent close contact. Patient's other labs reassuring. EKG unremarkable. CT of the head due to episode of syncope reassuring. Unclear etiology, possibly related to hypoxia, vasovagal episode, dehydration, or cardiac etiology. Patient with multiple risk factors for CAD, no prior known diagnosis. At this time I do not suspect occult PE, pericarditis/myocarditis, pericardial effusion, or other acute vascular etiology. Impression & Plan Dyspnea, Influenza A, Tobacco abuse, Obesity Discharge Plan Visit Data Chief Complaint: Shortness of Breath/Dyspnea Stated Complaint: SOB ED Provider: Karly Sosa Discharge Problem: Dyspnea, Influenza A, Tobacco abuse, Obesity Patient Disposition: Admitted As Inpatient Discharge Instructions Interventions: ED Discharge Assessment Last Done: 09/14/22 22:18
[2022-09-14] MEDS ORDERED: ALBUT/IPRATROP 3MG/0.5MG NEB 3 ML VIAL ONE (19:51)
[2022-09-14] MEDS ORDERED: OPTIRAY 320 500ml IV ONE (21:08)
--- NOTE | 2022-09-14 22:16 | History and Physical Report ---
DATE OF ADMISSION: 09/14/2022. CHIEF COMPLAINT: Shortness of breath, syncope. HISTORY OF PRESENT ILLNESS: This 46-year-old male with past medical history significant for type 2 diabetes, diabetic polyneuropathy, hyperlipidemia, hypertension, gastroparesis, irritable bowel syndrome, morbid obesity, GERD, degenerative disk disease, neuropathy, history of DVT, ongoing tobacco use disorder, presents with shortness of breath and syncope. The patient was recently in the hospital for RSV, was discharged on 09/07/2022. After discharge, he was not feeling well. He again saw the family doctor on 09/11/2022 and was prescribed tapering prednisone and today he again had office visit for followup visit. Still, he was not getting better. He is still having a lot of cough and short of breath. He continues to smoke and also his girlfriend was admitted to hospital with a flu and the patient was monitoring oxygen saturation at home is typically in the upper 80s and low 90s, and advised to complete the course of prednisone and continue the albuterol as needed, and also ordered chest x-ray and again flu, RSV, and COVID test, but after going home, he was lying in the bed, he suddenly had a lot of cough and he felt like he could not breathe and he raised up in the bed but he felt like floating and next thing is he fell on the floor and hit his head. He did not know falling down. He woke up he thinks after a few minutes, like 5-10 minutes and called his family and he was brought in here. CT head, he has some small posterior scalp contusion otherwise ok.His oxygen saturations are okay here on room air, was slightly tachycardic. Has ongoing cough. Denies any fevers .Influenza A came back positive. COVID, influenza B, and RSV are negative. The patient is eating and drinking okay. Denies any chest pain, has some headache, no blurred visions, no runny nose, no sore throat. No nausea or vomiting. Has some diarrhea. No abdominal pain. Normal bladder movements. No swelling in the legs. ALLERGIES: CEPHALOSPORINS, NSAIDS. PAST MEDICAL HISTORY: As mentioned above. PAST SURGICAL HISTORY: Right arthroscopic rotator cuff surgery, colonoscopy, EGDs, injection of lumbosacral spine, tonsillectomy, right shoulder arthroscopy. MEDICATIONS: The patient is on benzonatate 200 mg p.o. t.i.d. p.r.n., cyclobenzaprine 10 mg p.o. at bedtime p.r.n., dicyclomine 10 mg p.o. q.i.d. p.r.n., Colace 100 mg p.o. b.i.d., famotidine 20 mg p.o. at bedtime, gabapentin 200 mg p.o. at bedtime and 100 mg p.o. a.m., insulin NovoLog 12 units subcutaneous t.i.d. with meals, Lantus 22 units subcutaneous in the a.m. and 27 subcutaneous at bedtime, losartan 50 mg p.o. a.m., metformin 1000 mg p.o. b.i.d., metoclopramide 10 mg p.o. t.i.d. with meals, metoprolol succinate 50 mg p.o. a.m., Protonix 40 mg p.o. b.i.d., Trulicity 4.5 mg subcutaneous on Wednesday. FAMILY HISTORY: Significant for sister has arthritis; mother has diabetes, dyslipidemia, hypertension; father has COPD, hypertension. SOCIAL HISTORY: . Smokes 2 packs a day for 25 years. No alcohol use. Smokes marijuana, but not recently as per Epic. REVIEW OF SYSTEMS: As per HPI. Rest of the review of systems is negative. PHYSICAL EXAMINATION: GENERAL: The patient is morbidly obese, not in acute distress. VITAL SIGNS: Temperature 36.9, pulse 106, respiratory rate 21, blood pressure 152/95, oxygen 95% on room air. HEENT: Pupils equal, round and reactive to light. Oral mucosa moist. NECK: No JVD, no neck masses. CARDIOVASCULAR: S1 and S2 heard. Regular rate and rhythm. No murmur, no gallop. RESPIRATORY SYSTEM: Normal AP diameter. No accessory muscle use. No wheezing, no crackles. ABDOMEN: Soft, bowel sounds present, nontender, no distention. CENTRAL NERVOUS SYSTEM: Cranial nerves II through XII grossly intact, nonfocal. EXTREMITIES: No edema, no erythema. LABORATORY DATA: WBC 7.3, hemoglobin 15.2, hematocrit 45.8, platelets 249. PT 10.8, INR 1, APTT 26.2. Sodium 140, potassium 4.3, chloride 100, bicarbonate 30, BUN 26, creatinine 0.92, serum glucose 172, calcium 10.1, magnesium 1.4, total bilirubin 0.4, AST 45, ALT 106, alkaline phosphatase 66. Troponin I high sensitivity 11.6. SARS-CoV-2 PCR negative. Influenza A PCR positive. Influenza B PCR negative. RSV PCR negative. IMAGING DATA: CT of the head without contrast, no acute intracranial abnormality. Small posterior scalp contusions. EKG: Sinus tachycardia at 115, incomplete bundle-branch block, no significant change was found. ASSESSMENT AND PLAN: This is a 46-year-old male who presents with ongoing shortness of breath, influenza A positive and syncope. 1. Syncope: Could be hypoxic. Could be post tussive. The patient on room air, resting, his oxygen levels are okay, but on exertion, his oxygen levels are dropping in the ER. We will monitor in tele floor. Recently had echocardiogram. We will get Cardiology opinion in the a.m., n.p.o. after midnight. Follow repeat troponins.Will also get ct chest PE study. 2. Influenza, cough: IV fluids and symptomatic management.Tamiflu. 3. Diabetes: NPO after midnight. We will cut back Lantus to 15 units b.i.d., insulin sliding scale. Follow the blood sugars. 4. Morbid obesity: Needs counseling. May be underlying sleep apnea. Needs sleep study as outpatient.As per [facility] sleepy study was recommended.Oxygen sats dropping while sleeping lst night. Needs nocturnal pulse ox prior to discharge. 5. Ongoing tobacco abuse: Needs counseling. 6. Gastroesophageal reflux disease: Continue famotidine 7. Mild transaminitis. Possibly fatty liver. Needs followup. 7. Hypertension: On losartan. 8. Gerd On PPI. 9. Deep venous thrombosis prophylaxis: Heparin subcutaneously while the patient is in the hospital. DISPOSITION: Closely monitor in tele floor. Level 1 full code. Job ID: [id number] [facility]
[2022-09-14] MEDS ORDERED: DOCUSATE SODIUM 100 MG CAP PO PRN (22:52)
[2022-09-14] MEDS ORDERED: SODIUM CHLORIDE 0.65% NA SOLN 45 ML (OCEAN) PRN (22:52)
[2022-09-14] MEDS ORDERED: NITROGLYCERIN SL 0.4 MG/TAB TAB SL PRN (22:52)
[2022-09-14] MEDS ORDERED: POLYETHYLENE (MIRALAX) 17 GM PACK PO PRN (22:52)
[2022-09-14] MEDS ORDERED: LEVALBUTEROL HCL 1.25 MG/3 ML NEB NEB PRN (22:52)
[2022-09-15] MEDS ORDERED: SODIUM CHLORIDE 0.9% 1000ML 1,000 ML IV SCH (00:15)
[2022-09-15] MEDS: INSULIN ASPART PER UNIT SC SCH ×5 (00:43→21:31)
[2022-09-15] MEDS: LANTUS PER UNIT CHARGE SQ SCH ×3 (00:43→21:35)
[2022-09-15] MEDS: OSELTAMIVIR PHOSPHATE 75 MG CAP PO SCH ×3 (00:44→21:41)
[2022-09-15] MEDS: PANTOprazole 40 MG TAB PO SCH ×3 (00:45→21:42)
[2022-09-15] MEDS: FAMOTIDINE 20 MG TAB PO SCH ×2 (00:45→21:42)
[2022-09-15] MEDS: GABAPENTIN 100 MG CAP PO SCH ×3 (00:45→21:41)
[2022-09-15] MEDS: ACETAMINOPHEN 325 MG TAB PO PRN ×3 (00:53→21:50)
[2022-09-15] MEDS: guaiFENesin/CODEINE 100MG/10MG 5ML UDC PO PRN ×2 (01:55→09:52)
[2022-09-15] MEDS: ENOXAPARIN INJ 40 MG/0.4 ML SYR SQ SCH ×2 (05:17→17:54)
[2022-09-15 06:00] LABS: Basophils # (auto) 0.04 K/uL (0-0.2); Basophils % (auto) 0.5 %; Eosinophils % (auto) 1.3 %; Hematocrit (blood only) 41.1 % (40.1-51.0); Hemoglobin 13.4 g/dl (14.0-18.0); Immature Granulocytes # (auto) 0.13 K/uL (0.00-0.02); Immature Granulocytes % (auto) 1.7 %; Lymphocytes # (auto) 2.52 K/uL (1.2-3.4); Lymphocytes % (auto) 33.7 %; Mean Corpuscular Hemoglobin 27.6 pg (25.0-34.0); Mean Corpuscular Hgb Conc 32.6 g/dL (32.0-36.0); Mean Corpuscular Volume 84.6 fL (80.0-100.0); Mean Platelet Volume 9.4 fL (9.4-12.4); Monocytes # (auto) 0.84 K/uL (0.24-0.82); Monocytes % (auto) 11.2 %; Neutrophils # (auto) 3.85 K/uL (1.4-6.5); Neutrophils % (auto) 51.6 %; Platelet Count 229 K/uL (130-400); RDW Coefficient of Variation 13.1 % (11.5-14.5); RDW Standard Deviation 40.6 fL (36.4-46.3); Red Blood Count 4.86 M/uL (4.63-6.08); White Blood Count 7.48 K/ul (4.8-10.8)
[2022-09-15 06:56] LABS: BUN Creatinine Ratio 23.8 (10-20); Calcium 8.6 mg/dl (8.5-10.1); Creatinine Clr Calc Pharmacy 147.9 ml/min; Est GFR (Non-African American) 103.5 ml/min; Magnesium 1.6 mg/dl (1.7-2.4); Potassium 3.7 mmol/L (3.5-5.1); Troponin I High Sensitivity 19.5 pg/ml (0-20)
[2022-09-15 08:00] LABS: Estimated Average Glucose 206 mg/dl; Hemoglobin A1C 8.8 % (4.5-5.6)
--- NOTE | 2022-09-15 08:07 | CT Scan Report ---
CT ANGIOGRAM OF THE CHEST CLINICAL HISTORY: Dyspnea. COMPARISON STUDY: Chest CT dated 09/07/2022 TECHNIQUE: Following the IV administration of 112 cc of Optiray 320, CT angiogram of the chest was pe rformed from the upper abdomen to the thoracic inlet utilizing the pulmonary embolus protocol. Images are reviewed in the axial, sagittal, and coronal planes. 3-D MIPS images are created and assessed. I V contrast was administered without complication. A dose lowering technique was utilized adhering to the principles of ALARA. The examination is degraded by motion artifact. CT DOSE: 931.59 mGy.cm FINDINGS: Thyroid: Imaged portions of the thyroid gland are normal in size and attenuation. Thoracic aorta: The thoracic aorta is normal in caliber and demonstrates standard 3-vessel arch anato my. No dissection is seen. Pulmonary vasculature: The pulmonary trunk is normal in caliber. There are no filling defects identif ied in main, lobar, or proximal segmental pulmonary branches to suggest pulmonary embolus. Evaluation of the segmental and subsegmental branches is degraded by motion artifact. Heart: The heart is normal in size and without pericardial effusion. There are coronary artery calcif ications. Lungs and pleural spaces: Evaluation of the lung parenchyma is compromised by motion artifact. There is multifocal patchy groundglass consolidation, greatest at the right apex and in the lower lobes The re are scattered calcified granulomas. No pleural effusion is seen. The trachea and central airways a ppear clear. Mediastinum: Mildly enlarged mediastinal lymph nodes measure up to 11 mm in short axis. Daysi: Clear. Axillae: There is no axillary lymphadenopathy. Upper abdomen: There is hepatic steatosis. A small hiatal hernia is noted. Skeletal structures: No lytic or blastic bony lesions are seen. IMPRESSION: 1. There is no evidence of central pulmonary embolus in the main, lobar, or proximal segmental pulmon rimma arteries. Evaluation of the peripheral branches is significantly degraded by motion artifact. 2. Mild multifocal patchy groundglass consolidation is above is new from 09/07/2022 and typical for a n infectious/inflammatory pneumonitis. Clinical correlation will be required. 3. Hepatic steatosis. 4. Coronary artery calcifications. 5. Additional findings as above. ACT 112: Negative or not required by law. Electronically signed by: Jaydon Wallace M.D. 09/15/2022 8:04 AM
[2022-09-15] MEDS ORDERED: MAGNESIUM SULFATE / D5W 1 GM/100 ML BAG IV ONE (08:24)
[2022-09-15] MEDS: LOSARTAN POTASSIUM 50 MG TAB PO SCH (09:19)
[2022-09-15] MEDS: METOPROLOL SUCC 50MG EXT REL TAB PO SCH (09:19)
--- NOTE | 2022-09-15 09:20 | Electrocardiogram Report ---
Test Reason : Blood Pressure : / mmHG Vent. Rate : 101 BPM Atrial Rate : 101 BPM P-R Int : 150 ms QRS Dur : 102 ms QT Int : 356 ms P-R-T Axes : 047 008 019 degrees QTc Int : 461 ms Sinus tachycardia Otherwise normal ECG When compared with ECG of 14-SEP-2022 13:47, No significant change was found Confirmed by Nba Wallace ([id number]) on 09/15/2022 9:19:51 AM Referred By: REFERRED SELF Confirmed By:David Wallace
--- NOTE | 2022-09-15 10:22 | Cardiology Consultation ---
Date of Consultation September 15, 2022 Assessment & Plan (1) Tussive syncope: (2) Sinus tachycardia: (3) Pneumonitis: (4) HTN (hypertension): (5) Obstructive sleep apnea: Plan Complex 46-year-old diabetic male with morbid obesity, suspected obstructive sleep apnea with recent respiratory decline secondary to viral illnesses, RSV and influenza. Patient suffered acute syncopal spell in association with severe cough. No findings to suggest an acute cardiac event on initial evaluation Would maintain telemetry during in-hospital management Given resting sinus tachycardia agree with metoprolol succinate 50 mg/day. We will need to ensure patient continues posthospitalization Treat hypertension: Continue l losartan with room to titrate higher Tobacco cessation mandatory Would readdress high risk sleep apnea patient not on therapy History of Present Illness Reason for Consultation: Syncope Requesting Physician: Dr. Yeung Attending Physician: Sepideh Yeung MD History of Present Illness Patient is a 46-year-old male without prior documented cardiac disease his ongoing issues include 1. Acute viral bronchiolitis 2. Type 2 diabetes mellitus with neuropathy, gastroparesis 3. Hypertension 4. Morbid obesity 5. Chronic tobacco use Patient presents after syncopal event at home. History is notable for recent hospitalization with viral bronchitis RSV. Patient notes only minimal improvement post hospital discharge and acute worsening in the past several days. Girlfriend and patient now positive for influenza. Dyspnea became more pronounced with cough and while lying in bed eating coughed and was unable to stop coughing with resultant transient syncopal event. Patient notes he fell out of bed with scalp injury. No chest pains, tachypalpitations, no worsening edema. Sinus tachycardia previously noted with patient prescribed metoprolol succinate but not filled Feels improved in hospital but still coughing persistently Notes no prior history of myocardial infarction or congestive heart failure Evaluation of atypical chest pain February 2022 with negative stress test Echocardiogram during recent admission normal LV systolic function EKGs on presentation sinus tachycardia without out ST segment abnormality serially Allergies Allergy/AdvReac Type Severity Reaction Status Date / Time Cephalosporins Allergy Unknown Unknown Verified 09/06/22 13:25 NSAIDS (Non-Steroidal AdvReac Intermediate gastroparesis, Verified 09/06/22 13:25 Anti-Inflamma kidney problems Home Medications Medication Instructions Recorded Confirmed Type insulin aspart U-100 100 unit/mL 12 unit subcut TIDM 06/09/19 09/06/22 History (3 mL) subcutaneous pen (Novolog Flexpen U-100 Insulin aspart) dicyclomine 10 mg capsule 10 mg PO QID PRN Diarrhea 05/01/20 09/06/22 History famotidine 20 mg tablet 20 mg PO HS 07/13/20 09/06/22 History docusate sodium 100 mg capsule 100 mg PO BID PRN Constipation 02/25/21 09/06/22 History (Col-Rite) ibuprofen 125 mg-acetaminophen 250 3 tab PO BID 02/25/21 09/06/22 History mg tablet (Advil Dual Action) pantoprazole 40 mg tablet,delayed 40 mg PO BID 02/25/21 09/06/22 History release losartan 50 mg tablet 50 mg PO QAM 08/26/21 09/06/22 History metformin 500 mg tablet 1,000 mg PO BID 08/26/21 09/06/22 History dulaglutide 4.5 mg/0.5 mL 4.5 mg subcut FR 09/11/21 09/06/22 History subcutaneous pen injector (Trulicity) cyclobenzaprine 10 mg tablet 10 mg PO HS PRN Muscle Spasm 09/06/22 09/06/22 History gabapentin 100 mg capsule 100 mg PO QAM 09/06/22 09/06/22 History gabapentin 100 mg capsule 200 mg PO HS 09/06/22 09/06/22 History insulin glargine 100 unit/mL (3 22 unit subcut QAM 09/06/22 09/06/22 History mL) subcutaneous pen (Lantus Solostar U-100 Insulin) insulin glargine 100 unit/mL (3 27 unit subcut HS 09/06/22 09/06/22 History mL) subcutaneous pen (Lantus Solostar U-100 Insulin) metoclopramide HCl 10 mg tablet 10 mg PO TIDM 09/06/22 09/06/22 History benzonatate 200 mg capsule 200 mg PO TID PRN cough #30 caps 09/07/22 Rx metoprolol succinate 50 mg 50 mg PO QAM #30 tabs 09/07/22 Rx tablet,extended release 24 hr sodium chloride 0.65 % nasal spray 2 spray NA Q4H PRN nasal 09/07/22 Rx aerosol (Saline Mist) congestion #44 mL Patient History Medical History Acquired claw toe of left foot Acquired claw toe of right foot Acquired hallux valgus of right foot Adjustment disorder with depressed mood Cardiac murmur A CHILD Deep vein thrombosis 5 YEARS AGO (? REASON/WAS ON ANTICOAGS FOR A SHORT TIME) Diabetes mellitus with diabetic polyneuropathy Diabetes mellitus with neurological manifestation "Diabetic neuropathy reported in hands and feet" Diabetes mellitus, type 2 Erectile dysfunction Esophagitis Gastroparesis GERD (gastroesophageal reflux disease) Hallux valgus (acquired), left foot History of ventricular tachycardia "nonsustained" HTN (hypertension) Hx of pancreatitis resolved Hypertension IBS (irritable bowel syndrome) Intellectual disability MRSA (methicillin resistant Staphylococcus aureus) carrier over 2 yrs ago Nicotine dependence Obesity Obstructive sleep apnea no cpap Osteoarthritis Peripheral neuropathy Surgical History H/O foot surgery LEFT-2018 History of arthroscopy LEFT [id number] History of colonoscopy History of esophagogastroduodenoscopy (EGD) History of nasal septoplasty 09/25/21-Dr. Garcia History of reduction of nasal fracture 09/25/21-Dr. Garcia History of shoulder surgery right-2019 History of tonsillectomy and adenoidectomy 1979 History of tooth extraction Status post incision and drainage LLE Family History Brother Family history of diabetes mellitus Environmental allergies Asthma Mother Family history of diabetes mellitus Hypertension Environmental allergies Father Family history of diabetes mellitus Hypertension Heart disease Grandfather (Paternal) Lung cancer smoker Aunt Bleeding disorder Other No family history of adverse response to anesthesia Social History Smoking Status: Current every day smoker Tobacco Type: Cigarettes Age Started Using Tobacco: 14; Cigarettes Per Day: 30-40; Second Hand Exposure: Yes; Do You Dip or Chew Tobacco: No; Tobacco Cessation Education Requested by Patient: No Hx Alcohol Use: Yes Alcohol type: beer Alcohol Intake Frequency: Monthly or Less Alcohol Intake Frequency Comment: seldom, a couple times per year if that per pt Hx Substance Use: No Preferred Language: [place] Communication Ability: Effective Configuration Analyst Required: No Beliefs That Will Affect Care: None marital status: Single marital status details: single at this time Current Living Situation: Significant Other Current Living Situation Comment: house current occupational status: employed 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 Other Information That Helps Us Care for You: No other: girlfriend able to assist with dressing changes and care as needed Feels Safe at Home: Yes during the past year weight has: remained stable Assistive Devices: None Review of Systems Review of Systems: All systems reviewed & are unremarkable except as noted in HPI & below Physical Exam Constitutional: + morbidly obese Eyes: PERRL, conjunctivae normal, anicteric sclerae ENMT: external ear and nose normal, oropharynx normal Mallampati Class: IV Neck: + thick neck Cardiovascular: RRR, no murmur, no edema Rate/Rhythm: + tachycardic Extremities: no edema Gastrointestinal (Abdomen): Percussion/Palpation: abdomen soft; abdomen nontender Musculoskeletal: no cyanosis or clubbing, extremities motor strength 5/5 Results & Data ([facility]) Vital Signs (Past 12 Hours) Vital Signs Temp Pulse Pulse Resp BP Pulse Ox O2 Del Method 09/15/22 08:00 36.5 C 103 H 19 174/97 H 94 Nasal Cannula 09/15/22 03:15 36.6 C 101 H 14 155/74 H 95 Nasal Cannula 09/15/22 01:59 Nasal Cannula 09/15/22 01:08 105 H 09/14/22 22:52 09/14/22 22:56 Room Air 09/14/22 22:56 36.7 C 112 H 18 169/101 H 993 H Room Air O2 Del Method O2 Flow Rate 09/15/22 08:00 1 09/15/22 03:15 1 09/15/22 01:59 1 09/15/22 01:08 09/14/22 22:52 Room Air 09/14/22 22:56 09/14/22 22:56 Laboratory Results Laboratory Results - last 24 hr 09/14/22 09/14/22 09/14/22 13:38 19:48 23:30 WBC RBC Hgb Hct MCV MCH MCHC RDW Std Deviation RDW Coeff of Abiodun Plt Count MPV Immature Gran % (Auto) Neut % (Auto) Lymph % (Auto) [place] % (Auto) Eos % (Auto) Baso % (Auto) Neut # (Auto) Lymph # (Auto) [place] # (Auto) Eos # (Auto) Baso # (Auto) Immature Gran # (Auto) PT INR APTT PTT Ratio Sodium Potassium Chloride Carbon Dioxide Anion Gap BUN Creatinine Est Cr Clr Drug Dosing Est GFR ( Amer) Est GFR (Non-Af Amer) BUN/Creatinine Ratio Glucose POC Glucose 157 H Estimat Average Glucose Hemoglobin A1c Calcium Magnesium Total Bilirubin AST ALT Alkaline Phosphatase Troponin I High Sens 11.6 D Total Protein Albumin Globulin Albumin/Globulin Ratio SARS-CoV-2 (PCR) NEGATIVE Influenza Type A (PCR) Positive A* Influenza Type B (PCR) Negative RSV (RT-PCR) Negative 09/14/22 09/14/22 09/14/22 Unknown Unknown Unknown WBC 7.30 RBC 5.45 Hgb 15.2 Hct 45.8 MCV 84.0 MCH 27.9 MCHC 33.2 RDW Std Deviation 39.8 RDW Coeff of Abiodun 13.2 Plt Count 249 MPV 9.5 Immature Gran % (Auto) 1.4 Neut % (Auto) 73.7 Lymph % (Auto) 15.6 [place] % (Auto) 8.5 Eos % (Auto) 0.1 Baso % (Auto) 0.7 Neut # (Auto) 5.38 Lymph # (Auto) 1.14 L [place] # (Auto) 0.62 Eos # (Auto) 0.01 Baso # (Auto) 0.05 Immature Gran # (Auto) 0.10 H PT 10.8 INR 1.0 APTT 26.2 PTT Ratio 1.0 Sodium 140 Potassium 4.3 Chloride 100 Carbon Dioxide 30 Anion Gap 10 BUN 26 H Creatinine 0.92 Est Cr Clr Drug Dosing 151.0 Est GFR ( Amer) 113.6 Est GFR (Non-Af Amer) 98.0 BUN/Creatinine Ratio 28.3 H Glucose 172 H POC Glucose Estimat Average Glucose Hemoglobin A1c Calcium 10.1 Magnesium 1.4 L Total Bilirubin 0.4 AST 45 H ALT 106 H Alkaline Phosphatase 66 Troponin I High Sens Total Protein 8.1 Albumin 4.4 Globulin 3.7 Albumin/Globulin Ratio 1.2 SARS-CoV-2 (PCR) Influenza Type A (PCR) Influenza Type B (PCR) RSV (RT-PCR) 09/15/22 09/15/22 09/15/22 05:27 05:27 05:27 WBC 7.48 RBC 4.86 Hgb 13.4 L Hct 41.1 MCV 84.6 MCH 27.6 MCHC 32.6 RDW Std Deviation 40.6 RDW Coeff of Abiodun 13.1 Plt Count 229 MPV 9.4 Immature Gran % (Auto) 1.7 Neut % (Auto) 51.6 Lymph % (Auto) 33.7 [place] % (Auto) 11.2 Eos % (Auto) 1.3 Baso % (Auto) 0.5 Neut # (Auto) 3.85 Lymph # (Auto) 2.52 [place] # (Auto) 0.84 H Eos # (Auto) 0.10 Baso # (Auto) 0.04 Immature Gran # (Auto) 0.13 H PT INR APTT PTT Ratio Sodium 137 Potassium 3.7 Chloride 100 Carbon Dioxide 30 Anion Gap 7 BUN 20 Creatinine 0.84 Est Cr Clr Drug Dosing 147.9 Est GFR ( Amer) 120.0 Est GFR (Non-Af Amer) 103.5 BUN/Creatinine Ratio 23.8 H Glucose 217 H POC Glucose Estimat Average Glucose Hemoglobin A1c Calcium 8.6 Magnesium 1.6 L Total Bilirubin AST ALT Alkaline Phosphatase Troponin I High Sens Cancelled 19.5 D Total Protein Albumin Globulin Albumin/Globulin Ratio SARS-CoV-2 (PCR) Influenza Type A (PCR) Influenza Type B (PCR) RSV (RT-PCR) 09/15/22 09/15/22 05:27 09:52 WBC RBC Hgb Hct MCV MCH MCHC RDW Std Deviation RDW Coeff of Abiodun Plt Count MPV Immature Gran % (Auto) Neut % (Auto) Lymph % (Auto) [place] % (Auto) Eos % (Auto) Baso % (Auto) Neut # (Auto) Lymph # (Auto) [place] # (Auto) Eos # (Auto) Baso # (Auto) Immature Gran # (Auto) PT INR APTT PTT Ratio Sodium Potassium Chloride Carbon Dioxide Anion Gap BUN Creatinine Est Cr Clr Drug Dosing Est GFR ( Amer) Est GFR (Non-Af Amer) BUN/Creatinine Ratio Glucose POC Glucose 207 H Estimat Average Glucose 206 Hemoglobin A1c 8.8 H Calcium Magnesium Total Bilirubin AST ALT Alkaline Phosphatase Troponin I High Sens Total Protein Albumin Globulin Albumin/Globulin Ratio SARS-CoV-2 (PCR) Influenza Type A (PCR) Influenza Type B (PCR) RSV (RT-PCR) Diagnostic Findings Dobutamine stress echocardiogram 03/09/2022 The ultrasound enhancement agent Definity was administered to improve delineation of the endocardial border with good technical results. A focused rest/stress study was performed, per provider request. The stress echo is negative for inducible ischemia. Normal LV systolic function is noted at rest and stress The stress EKG response showed no evidence of ischemia. The heart rate response to pharmacologic stress was normal. An equivocal flat blood pressure response to pharmacologic stress was observed. No symptoms suggestive of angina were reported.
[2022-09-15] MEDS ORDERED: traMADol HCL 50 MG TABLET PO STA (18:36)
[2022-09-15] MEDS: BENZONATATE 100 MG CAPSULE PO PRN (21:50)
--- NOTE | 2022-09-15 23:07 | Hospitalist Progress Note ---
Date of Service September 15, 2022 Assessment & Plan (1) Tussive syncope: Plan: Present on admission after syncopal episode due to severe cough CT head showed no acute intracranial abnormality or calvarial fracture. Small posterior scalp contusions. No findings to suggest an acute cardiac event on initial evaluation No focal deficit on exam Continue monitor Influenza, Recent hospitalization for RSV, now tested positive for influenza Continue Tamiflu continue oxygen supplement, guaifenesin/codeine continue incentive spirometry and flutter valve will get nocturnal pulse oximetry due to apnea episode while sleping Diabetes type 2 Most recent hemoglobin A1c 8.8 ( 2021) resumed metformin and Trulicity on discharge Lantus and insulin sliding scale during hospital course Monitor BS Transaminitis LFT trending down Continue monitor outpatient Hypomagnesemia Mg 1.6 today Magnesium replaced Continue monitor elctrolytes Tobacco abuse Counseling on smoking cessation Nicotine patch added Obstructive sleep apnea CPAP if patient continues to use it at home Hypertension Continue losartan 50 mg daily Continue monitor BP GI prophylaxis PPI twice daily DVT prophylaxis Lovenox CODE STATUS full code Admission and Anticipated Discharge Date Admission Date: September 14, 2022 Subjective Patient was seen and evaluated for follow-up of shortness of breath and cough due to flu Plan in bed with no acute distress Patient said that he continues to cough and has been bringing some of the phlegm up Yesterday he had a syncopal episode after severe cough episode Denies any chest pain, palpitation, dizziness, and fever. Review of Systems 2 Review of Systems: All systems reviewed & are unremarkable except as noted in Subjective Physical Exam Physical Exam: General- No acute distress Head- atraumatic Eyes- PERRL, EOMI, ENT- oropharynx clear Neck- supple, no JVD Lungs- +coarse BS Heart- regular rhythm; no murmur Abdomen- normal bowel sounds, soft, nontender Extremities- no calf tenderness Neuro- alert, oriented x 3; PERRL, EOMI; no facial palsy; no dysarthria Skin- warm & dry Results & Data Results & Data ([facility]) Vital Signs (Past 12 Hours) Vital Signs Temp Pulse Resp BP BP Pulse Ox Pulse Ox 09/15/22 22:32 36.7 C 96 H 16 122/74 96 09/15/22 21:40 93 09/15/22 20:04 36.7 C 97 H 16 130/80 94 09/15/22 15:45 36.6 C 102 H 18 153/79 H 97 09/15/22 11:54 36.7 C 103 H 20 130/58 L 94 O2 Del Method O2 Del Method O2 Flow Rate 09/15/22 22:32 Nasal Cannula 2 09/15/22 21:40 Room Air 09/15/22 20:04 Room Air 09/15/22 15:45 Nasal Cannula 2 09/15/22 11:54 Nasal Cannula 1
[2022-09-16] MEDS: ENOXAPARIN INJ 40 MG/0.4 ML SYR SQ SCH ×2 (06:27→17:21)
[2022-09-16 09:04] LABS: Hematocrit (blood only) 43.9 % (40.1-51.0); Hemoglobin 14.5 g/dl (14.0-18.0); Mean Corpuscular Hemoglobin 27.8 pg (25.0-34.0); Mean Corpuscular Volume 84.3 fL (80.0-100.0); Mean Platelet Volume 9.3 fL (9.4-12.4); Platelet Count 221 K/uL (130-400); RDW Standard Deviation 39.7 fL (36.4-46.3); Red Blood Count 5.21 M/uL (4.63-6.08); White Blood Count 7.32 K/ul (4.8-10.8)
[2022-09-16] MEDS: INSULIN ASPART PER UNIT SC SCH ×5 (09:25→20:46)
[2022-09-16] MEDS: OSELTAMIVIR PHOSPHATE 75 MG CAP PO SCH ×2 (09:32→23:00)
[2022-09-16] MEDS: PANTOprazole 40 MG TAB PO SCH ×2 (09:32→22:59)
[2022-09-16] MEDS: METOPROLOL SUCC 50MG EXT REL TAB PO SCH (09:33)
[2022-09-16] MEDS: NICOTINE 21 MG/24 HR TDSY TD SCH ×2 (09:33→09:40)
[2022-09-16] MEDS: LOSARTAN POTASSIUM 50 MG TAB PO SCH (09:33)
[2022-09-16 09:35] LABS: Albumin Globulin Ratio 1.2 (0.9-2); Albumin Level 3.7 gm/dl (3.4-5.0); Bilirubin,Total 0.5 mg/dl (0.2-1.0); Calcium 8.5 mg/dl (8.5-10.1); Creatinine Clr Calc Pharmacy 179.1 ml/min; Est GFR (African American) 130.1 ml/min; Est GFR (Non-African American) 112.3 ml/min; Globulin 3.1 gm/dl (2.5-4.0); Magnesium 1.9 mg/dl (1.7-2.4); Potassium 4.4 mmol/L (3.5-5.1); Total Protein 6.8 gm/dl (6.0-8.3)
[2022-09-16] MEDS: GABAPENTIN 100 MG CAP PO SCH ×2 (09:35→21:55)
--- NOTE | 2022-09-16 10:59 | Cardiology Progress Note ---
Date of Service September 16, 2022 Assessment & Plan (1) Tussive syncope: (2) Sinus tachycardia: (3) Pneumonitis: (4) HTN (hypertension): (5) Obstructive sleep apnea: Plan Complex 46-year-old diabetic male with morbid obesity, suspected obstructive sleep apnea with recent respiratory decline secondary to viral illnesses, RSV and influenza. Patient suffered acute syncopal spell in association with severe cough. No findings to suggest an acute cardiac event on initial evaluation Would maintain telemetry during in-hospital management Given resting sinus tachycardia agree with metoprolol succinate 50 mg/day. We will need to ensure patient continues posthospitalization Treat hypertension: Continue l losartan with room to titrate higher Tobacco cessation mandatory Would readdress high risk sleep apnea patient not on therapy 09/16/2022 Findings as above slowly improving. Continued sinus tachycardia present Will increase metoprolol slightly to 50 mg a.m. 25 g p.m. Discussed tobacco cessation and weight loss with patient Admission and Anticipated Discharge Date Admission Date: September 14, 2022 Subjective Patient seen and examined, chart, medications, telemetry reviewed. No arrhythmias on telemetry Still with cough modest production of sputum easily dyspneic Sinus tachycardia remains on telemetry Physical Exam Constitutional: + morbidly obese Eyes: PERRL, conjunctivae normal, anicteric sclerae ENMT: external ear and nose normal, oropharynx normal Mallampati Class: IV Neck: + thick neck Cardiovascular: RRR, no murmur, no edema Rate/Rhythm: + tachycardic Extremities: no edema Gastrointestinal (Abdomen): Percussion/Palpation: abdomen soft; abdomen nontender Musculoskeletal: no cyanosis or clubbing, extremities motor strength 5/5 Results & Data ([facility]) Vital Signs (Past 12 Hours) Vital Signs Temp Pulse Pulse Pulse Resp BP Pulse Ox 09/16/22 07:53 36.6 C 100 H 18 143/84 H 98 09/16/22 03:43 91 H 09/16/22 03:24 36.7 C 95 H 18 111/67 100 09/15/22 23:00 97 H 09/16/22 01:01 92 H Pulse Ox O2 Del Method O2 Del Method O2 Flow Rate O2 Flow Rate 09/16/22 07:53 Oxymask 2 09/16/22 03:43 98 Oxymask 4 09/16/22 03:24 Oxymask 4 09/15/22 23:00 09/16/22 01:01 94 Oxymask 4 Laboratory Results Laboratory Results - last 24 hr 09/15/22 09/15/22 09/15/22 11:09 11:18 16:06 WBC RBC Hgb Hct MCV MCH MCHC RDW Std Deviation RDW Coeff of Abiodun Plt Count MPV Sodium Potassium Chloride Carbon Dioxide Anion Gap BUN Creatinine Est Cr Clr Drug Dosing Est GFR ( Amer) Est GFR (Non-Af Amer) BUN/Creatinine Ratio Glucose POC Glucose 227 H 127 H Calcium Magnesium Total Bilirubin AST ALT Alkaline Phosphatase Troponin I High Sens 16.6 Total Protein Albumin Globulin Albumin/Globulin Ratio 09/15/22 09/16/22 09/16/22 21:25 07:11 08:07 WBC 7.32 RBC 5.21 Hgb 14.5 Hct 43.9 MCV 84.3 MCH 27.8 MCHC 33.0 RDW Std Deviation 39.7 RDW Coeff of Abiodun 13.0 Plt Count 221 MPV 9.3 L Sodium Potassium Chloride Carbon Dioxide Anion Gap BUN Creatinine Est Cr Clr Drug Dosing Est GFR ( Amer) Est GFR (Non-Af Amer) BUN/Creatinine Ratio Glucose POC Glucose 152 H 164 H Calcium Magnesium Total Bilirubin AST ALT Alkaline Phosphatase Troponin I High Sens Total Protein Albumin Globulin Albumin/Globulin Ratio 09/16/22 08:07 WBC RBC Hgb Hct MCV MCH MCHC RDW Std Deviation RDW Coeff of Abiodun Plt Count MPV Sodium 136 Potassium 4.4 Chloride 99 Carbon Dioxide 29 Anion Gap 8 BUN 20 Creatinine 0.69 Est Cr Clr Drug Dosing 179.1 Est GFR ( Amer) 130.1 Est GFR (Non-Af Amer) 112.3 BUN/Creatinine Ratio 29.0 H Glucose 181 H POC Glucose Calcium 8.5 Magnesium 1.9 Total Bilirubin 0.5 AST 105 H ALT 195 H Alkaline Phosphatase 63 Troponin I High Sens Total Protein 6.8 Albumin 3.7 Globulin 3.1 Albumin/Globulin Ratio 1.2
[2022-09-16] MEDS: LANTUS PER UNIT CHARGE SQ SCH ×2 (12:12→21:48)
--- NOTE | 2022-09-16 13:18 | Electrocardiogram Report ---
Test Reason : Blood Pressure : / mmHG Vent. Rate : 102 BPM Atrial Rate : 102 BPM P-R Int : 140 ms QRS Dur : 098 ms QT Int : 358 ms P-R-T Axes : 049 018 039 degrees QTc Int : 466 ms Sinus tachycardia Incomplete right bundle branch block Abnormal ECG When compared with ECG of 15-SEP-2022 05:13, Incomplete right bundle branch block is now Present Confirmed by Nba Wallace ([id number]) on 09/16/2022 1:17:54 PM Referred By: REFERRED SELF Confirmed By:David Wallace
[2022-09-16] MEDS ORDERED: traMADol HCL 50 MG TABLET PO STA (13:36)
[2022-09-16] MEDS: ACETAMINOPHEN 325 MG TAB PO PRN ×2 (16:47→21:55)
--- NOTE | 2022-09-16 21:40 | Hospitalist Progress Note ---
Date of Service September 16, 2022 Assessment & Plan (1) Tussive syncope: Plan: Present on admission after syncopal episode due to severe cough CT head showed no acute intracranial abnormality or calvarial fracture. Small posterior scalp contusions. No findings to suggest an acute cardiac event on initial evaluation No focal deficit on exam Continue monitor Influenza, Recent hospitalization for RSV, now tested positive for influenza Continue Tamiflu continue oxygen supplement, guaifenesin/codeine continue incentive spirometry and flutter valve Nocturnal pulse oximetry showed desaturation greater than 30 minutes Diabetes type 2 Most recent hemoglobin A1c 8.8 ( 2021) resumed metformin and Trulicity on discharge Lantus and insulin sliding scale during hospital course Monitor BS Nocturnal hypoxia Nocturnal pulse oximetry showed desaturation greater than 30 minutes Pt needs to get a formal sleep study on discharge Continue oxygen supplement at night Transaminitis LFT trending up Continue monitor outpatient Hypomagnesemia Mg 1.9 today Continue monitor electrolytes Tobacco abuse Counseling on smoking cessation Nicotine patch added Obstructive sleep apnea CPAP if patient continues to use it at home Hypertension Continue losartan 50 mg daily Continue monitor BP GI prophylaxis PPI twice daily DVT prophylaxis Lovenox CODE STATUS full code Admission and Anticipated Discharge Date Admission Date: September 14, 2022 Subjective Patient was seen and evaluated for follow-up of shortness of breath and cough due to flu Lying in bed with no acute distress He said that his breathing feels alittle better He said that he started to cough out some phlegm Denies any chest pain, palpitation, dizziness, and fever. Review of Systems Review of Systems: All systems reviewed & are unremarkable except as noted in Subjective Physical Exam Physical Exam: General- No acute distress Head- atraumatic Eyes- PERRL, EOMI, ENT- oropharynx clear Neck- supple, no JVD Lungs- +coarse BS Heart- regular rhythm; no murmur Abdomen- normal bowel sounds, soft, nontender Extremities- no calf tenderness Neuro- alert, oriented x 3; PERRL, EOMI; no facial palsy; no dysarthria Skin- warm & dry Results & Data Results & Data ([facility]) Vital Signs (Past 12 Hours) Vital Signs Temp Pulse Pulse Resp BP BP Pulse Ox 09/16/22 19:44 36.8 C 94 H 18 121/80 92 09/16/22 16:00 98 H 09/16/22 15:28 36.7 C 97 H 18 133/82 93 09/16/22 12:12 36.8 C 110 H 16 110/71 92 O2 Del Method 09/16/22 19:44 Room Air 09/16/22 16:00 09/16/22 15:28 Room Air 09/16/22 12:12 Room Air
[2022-09-16] MEDS: traMADol HCL 50 MG TABLET PO PRN (21:54)
[2022-09-16] MEDS: BENZONATATE 100 MG CAPSULE PO PRN (21:55)
[2022-09-16] MEDS ORDERED: XOPENEX/ATROVENT 1.25mg/0.5MG NEB COMBO NEB STA (22:07)
[2022-09-16] MEDS ORDERED: IPRATROPIUM BROMIDE NEB SOLN 0.02% 2.5 ML VIAL INH ONE (22:34)
[2022-09-16] MEDS ORDERED: LEVALBUTEROL 1.25MG/0.5ML NEB INH ONE (22:34)
[2022-09-16 22:54] LABS: Base Excess ABG 3.6 mEq/L (-9-1.8); HCO3 ABG 30 mmol/L (19-24); Oxygen Saturation ABG 96.5 % (90-95); PCO2 ABG 52 mmHg (35-46); PO2 ABG 85 mmHg (80-95); pH ABG 7.37 (7.35-7.45)
[2022-09-16 22:56] LABS: Allen Test Pos (Pos)
[2022-09-16] MEDS: FAMOTIDINE 20 MG TAB PO SCH (22:59)
[2022-09-16] MEDS: METOPROLOL SUCC 25MG EXT REL TAB PO SCH (22:59)
[2022-09-16 23:09] LABS: Partial Thromboplastin Time 26.4 Seconds (21.0-31.0)
[2022-09-16] MEDS: guaiFENesin/CODEINE 100MG/10MG 5ML UDC PO SCH (23:11)
[2022-09-16 23:21] LABS: BUN Creatinine Ratio 24.2 (10-20); Calcium 8.2 mg/dl (8.5-10.1); Creatinine Clr Calc Pharmacy 124.9 ml/min; Est GFR (African American) 103.9 ml/min; Est GFR (Non-African American) 89.7 ml/min; Magnesium 1.9 mg/dl (1.7-2.4); Potassium 3.9 mmol/L (3.5-5.1); Troponin I High Sensitivity 9.1 pg/ml (0-20)
--- NOTE | 2022-09-17 04:21 | Communication Note ---
Date of Service: September 17, 2022 Patient with apneic episodes, O2 sats 50-70s, lasting 30 seconds on CPAP/BIPAP as per RT. AP DAMION Outpatient sleep study (Patient has not scheduled PSG recommended by [facility] sleep specialist as per outpatient visit last November 2021) Pulmonology consult
[2022-09-17] MEDS: guaiFENesin/CODEINE 100MG/10MG 5ML UDC PO SCH ×4 (05:26→23:53)
--- NOTE | 2022-09-17 07:18 | CT Scan Report ---
HEAD CT NONCONTRAST CT DOSE: 687.98 mGy.cm HISTORY: Headache. Trauma. TECHNIQUE: Multiaxial CT images of the head were performed without the use of intravenous contrast. A utomated exposure control was utilized for this study. A dose lowering technique was utilized adheri ng to the principles of ALARA. Comparison: Head CT 09/14/2022. Findings: Age-indeterminate nondisplaced nasal bone fractures. Mild mucosal thickening within the eth moid air cells. The mastoid air cells are clear. Mild posterior scalp swelling again noted. The laureano rium and skull base are intact. The ventricles and sulci are within normal limits. There is no mass, hematoma, midline shift, or acute infarct. Impression: 1. No acute intracranial abnormality. 2. Mild posterior scalp swelling. 3. Age-indeterminate but likely old nondisplaced nasal bone fractures. ACT 112: Negative or not required by law. Electronically signed by: Vijay Wadsworth M.D. 09/17/2022 7:17 AM
--- NOTE | 2022-09-17 07:42 | XRay Report ---
XR chest 1V portable CLINICAL HISTORY: Shortness of breath. COMPARISON STUDY: Chest radiograph and chest CT September 14, 2022. FINDINGS: No pneumothorax or pleural effusion is noted. Airspace opacities shown on recent chest CT a re not evident on this exam, likely due to technique. No lobar consolidation. Prominence of the cardi ac silhouette is likely technical. IMPRESSION: No lobar consolidation. Airspace opacities on chest CT of September 14, 2022 not visualize d on this exam which may be due to radiographic technique. ACT 112: Negative or not required by law. Electronically signed by: Serge Ghotra M.D. 09/17/2022 7:41 AM
[2022-09-17 07:55] LABS: Albumin Globulin Ratio 1.2 (0.9-2); Albumin Level 3.6 gm/dl (3.4-5.0); BUN Creatinine Ratio 32.4 (10-20); Bilirubin,Total 0.6 mg/dl (0.2-1.0); Calcium 8.5 mg/dl (8.5-10.1); Creatinine Clr Calc Pharmacy 174.1 ml/min; Est GFR (African American) 128.6 ml/min; Globulin 3.1 gm/dl (2.5-4.0); Total Protein 6.7 gm/dl (6.0-8.3)
--- NOTE | 2022-09-17 08:02 | Pulmonary Consultation ---
Date of Consultation September 17, 2022 Assessment & Plan (1) Influenza A: (2) Tobacco abuse: (3) Multifocal pneumonia: (4) Tussive syncope: (5) Nocturnal hypoxia: (6) Morbid obesity: (7) Chronic respiratory failure with hypercapnia: Plan CT chest 09/06/2022 personally reviewed: Patchy opacity in the right upper lobe and right lower lobe Insignificant mediastinal lymphadenopathy 09/16/2022: ABG 7.37/52/85 on 3 L oxygen -- Multifocal pneumonia Influenza A positive COVID-19 PCR negative RSV was + 09/06/2022 Procalcitonin negative --Chronic hypercapnic respiratory failure Likely from underlying DAMION/OHS Will benefit from outpatient polysomnography --Current smoker Approximately [id number] smoking history Positive quitting explained the patient in depth PFT as an outpatient -- Probable DAMION/OHS Continue with BiPAP while in the hospital Patient will need dedicated sleep study on discharge as soon as possible -- Morbid obesity Advised to lose with diet and exercise Plan: Complete the course of oseltamivir Continue with guaifenesin-codeine [id number] BiPAP nightly and whenever patient is taking a nap Repeat CT chest in 2 months to make sure the pneumonia has resolved No further recommendation for pulmonary perspective. Please call directly with any questions Case was discussed with Dr. Yeung Please note the above document was generated using voice recognition software. It may contain grammatical, syntax or spelling errors.Any formal questions or concerns about the content, text or information contained within the body of this dictation should be directly addressed to the provider for clarification. History of Present Illness Attending Physician: Sepideh Yeung MD History of Present Illness 46-year-old male came to the hospital with complaints of syncope post coughing Past medical history: Diabetes, obesity, GERD Patient was found to have influenza and he was started was ultimately Pulmonary consulted because of nocturnal hypoxia At the time of examination patient says that he is feeling better since he came to the hospital At home he was having fits of coughing and when he needs to sit up and cough he passed out. Never had any issues like this in the past. He has been using guaifenesin with codeine [id number] right now. No diarrhea, no dysuria No headache, no nausea vomiting Fair appetite. Social history: 28-hrms-cneg smoking history, currently smoking a pack a day Asthma: No family history of asthma Lung cancer: History of lung cancer in grandfather was a smoker Allergies Allergy/AdvReac Type Severity Reaction Status Date / Time Cephalosporins Allergy Unknown Unknown Verified 09/06/22 13:25 NSAIDS (Non-Steroidal AdvReac Intermediate gastroparesis, Verified 09/06/22 13:25 Anti-Inflamma kidney problems Home Medications Medication Instructions Recorded Confirmed Type insulin aspart U-100 100 unit/mL 12 unit subcut TIDM 06/09/19 09/06/22 History (3 mL) subcutaneous pen (Novolog Flexpen U-100 Insulin aspart) dicyclomine 10 mg capsule 10 mg PO QID PRN Diarrhea 05/01/20 09/06/22 History famotidine 20 mg tablet 20 mg PO HS 07/13/20 09/06/22 History docusate sodium 100 mg capsule 100 mg PO BID PRN Constipation 02/25/21 09/06/22 History (Col-Rite) ibuprofen 125 mg-acetaminophen 250 3 tab PO BID 02/25/21 09/06/22 History mg tablet (Advil Dual Action) pantoprazole 40 mg tablet,delayed 40 mg PO BID 02/25/21 09/06/22 History release losartan 50 mg tablet 50 mg PO QAM 08/26/21 09/06/22 History metformin 500 mg tablet 1,000 mg PO BID 08/26/21 09/06/22 History dulaglutide 4.5 mg/0.5 mL 4.5 mg subcut FR 09/11/21 09/06/22 History subcutaneous pen injector (Trulicity) cyclobenzaprine 10 mg tablet 10 mg PO HS PRN Muscle Spasm 09/06/22 09/06/22 History gabapentin 100 mg capsule 100 mg PO QAM 09/06/22 09/06/22 History gabapentin 100 mg capsule 200 mg PO HS 09/06/22 09/06/22 History insulin glargine 100 unit/mL (3 22 unit subcut QAM 09/06/22 09/06/22 History mL) subcutaneous pen (Lantus Solostar U-100 Insulin) insulin glargine 100 unit/mL (3 27 unit subcut HS 09/06/22 09/06/22 History mL) subcutaneous pen (Lantus Solostar U-100 Insulin) metoclopramide HCl 10 mg tablet 10 mg PO TIDM 09/06/22 09/06/22 History benzonatate 200 mg capsule 200 mg PO TID PRN cough #30 caps 09/07/22 Rx metoprolol succinate 50 mg 50 mg PO QAM #30 tabs 09/07/22 Rx tablet,extended release 24 hr sodium chloride 0.65 % nasal spray 2 spray NA Q4H PRN nasal 09/07/22 Rx aerosol (Saline Mist) congestion #44 mL Patient History Medical History Acquired claw toe of left foot Acquired claw toe of right foot Acquired hallux valgus of right foot Adjustment disorder with depressed mood Cardiac murmur A CHILD Deep vein thrombosis 5 YEARS AGO (? REASON/WAS ON ANTICOAGS FOR A SHORT TIME) Diabetes mellitus with diabetic polyneuropathy Diabetes mellitus with neurological manifestation "Diabetic neuropathy reported in hands and feet" Diabetes mellitus, type 2 Erectile dysfunction Esophagitis Gastroparesis GERD (gastroesophageal reflux disease) Hallux valgus (acquired), left foot History of ventricular tachycardia "nonsustained" HTN (hypertension) Hx of pancreatitis resolved Hypertension IBS (irritable bowel syndrome) Intellectual disability MRSA (methicillin resistant Staphylococcus aureus) carrier over 2 yrs ago Nicotine dependence Obesity Obstructive sleep apnea no cpap Osteoarthritis Peripheral neuropathy Surgical History H/O foot surgery LEFT-2018 History of arthroscopy LEFT [id number] History of colonoscopy History of esophagogastroduodenoscopy (EGD) History of nasal septoplasty 09/25/21-Dr. Garcia History of reduction of nasal fracture 09/25/21-Dr. Garcia History of shoulder surgery right-2019 History of tonsillectomy and adenoidectomy 1979 History of tooth extraction Status post incision and drainage LLE Family History Brother Family history of diabetes mellitus Environmental allergies Asthma Mother Family history of diabetes mellitus Hypertension Environmental allergies Father Family history of diabetes mellitus Hypertension Heart disease Grandfather (Paternal) Lung cancer smoker Aunt Bleeding disorder Other No family history of adverse response to anesthesia Social History Smoking Status: Current every day smoker Tobacco Type: Cigarettes Age Started Using Tobacco: 14; Cigarettes Per Day: 30-40; Second Hand Exposure: Yes; Do You Dip or Chew Tobacco: No; Tobacco Cessation Education Requested by Patient: No Hx Alcohol Use: Yes Alcohol type: beer Alcohol Intake Frequency: Monthly or Less Alcohol Intake Frequency Comment: seldom, a couple times per year if that per pt Hx Substance Use: No Preferred Language: Faroese Communication Ability: Effective Scratch Brusher Required: No Beliefs That Will Affect Care: None marital status: Single marital status details: single at this time Current Living Situation: Significant Other Current Living Situation Comment: house current occupational status: employed 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 Other Information That Helps Us Care for You: No other: girlfriend able to assist with dressing changes and care as needed Feels Safe at Home: Yes during the past year weight has: remained stable Assistive Devices: None Review of Systems Review of Systems: All systems reviewed & are unremarkable except as noted in HPI & below Physical Exam Physical Exam: Constitutional: No acute distress HEENT: EOMI, PERRLA, thick neck Respiratory system: Decreased air entry bilaterally, no wheeze, rhonchi, positiv e crackles bilateral lower lobes CVS: S1-S2 positive, no murmurs or gallops, distant heart sounds Abdomen: Soft, nontender, nondistended, positive bowel sounds x4, obese Extremities: +2 pulses bilaterally radialis/ dorsalis pedis, no cyanosis, no edema Neuro: Awake alert oriented x3 Psych: Normal mood and affect G/U: No Shearer Skin: no rashes, warm and dry Lymphatic: no cervical or axillary lymphadenopathy Results & Data Results & Data ([facility]) Vital Signs (Past 12 Hours) Vital Signs Temp Pulse Pulse Resp BP BP Pulse Ox 09/17/22 07:19 36.7 C 92 H 20 167/76 H 92 09/17/22 05:32 96 H 20 83 L 09/17/22 03:47 36.5 C 92 H 16 149/87 H 97 09/17/22 02:29 94 H 21 96 09/16/22 22:00 09/17/22 00:38 92 H 09/16/22 23:39 96 H 22 94 09/16/22 23:00 09/16/22 22:58 36.7 C 92 H 16 113/64 95 09/16/22 22:48 90 24 95 O2 Del Method O2 Del Method O2 Flow Rate 09/17/22 07:19 BiPAP 09/17/22 05:32 10 09/17/22 03:47 CPAP 09/17/22 02:29 10 09/16/22 22:00 CPAP 09/17/22 00:38 09/16/22 23:39 4 09/16/22 23:00 Oxymask 4 09/16/22 22:58 Oxymask 3 09/16/22 22:48 Oxymask 3 Laboratory Results 09/16/22 08:07 09/17/22 06:47 PG Care Time/CCT Total # of Minutes Spent Total Time Spent with Patient: Total time spent is greater than 50% in coordination of care (as documented) at patient's floor/unit and/or counseling patient: Coding Level of Care Code 48409 Initial Inpt Care Lvl 3 Diagnoses Influenza A J10.1 Tobacco abuse Z72.0 Multifocal pneumonia J18.9 Tussive syncope R55; R05.4 Nocturnal hypoxia G47.34 Morbid obesity E66.01 Chronic respiratory failure with hypercapnia J96.12
[2022-09-17] MEDS: INSULIN ASPART PER UNIT SC SCH ×4 (08:05→21:36)
[2022-09-17] MEDS: OSELTAMIVIR PHOSPHATE 75 MG CAP PO SCH ×2 (08:09→21:51)
[2022-09-17] MEDS: PANTOprazole 40 MG TAB PO SCH ×2 (08:09→21:51)
[2022-09-17] MEDS: NICOTINE 21 MG/24 HR TDSY TD SCH (08:10)
[2022-09-17] MEDS: METOPROLOL SUCC 50MG EXT REL TAB PO SCH (08:10)
[2022-09-17] MEDS: LOSARTAN POTASSIUM 50 MG TAB PO SCH (08:10)
[2022-09-17] MEDS: GABAPENTIN 100 MG CAP PO SCH ×2 (08:10→21:50)
[2022-09-17] MEDS: LANTUS PER UNIT CHARGE SQ SCH ×2 (08:13→21:36)
[2022-09-17] MEDS: ACETAMINOPHEN 325 MG TAB PO PRN (10:12)
[2022-09-17] MEDS: traMADol HCL 50 MG TABLET PO PRN (11:29)
--- NOTE | 2022-09-17 11:50 | Cardiology Progress Note ---
Date of Service September 17, 2022 Assessment & Plan (1) Tussive syncope: (2) Sinus tachycardia: (3) Pneumonitis: (4) HTN (hypertension): (5) Obstructive sleep apnea: Plan Complex 46-year-old diabetic male with morbid obesity, suspected obstructive sleep apnea with recent respiratory decline secondary to viral illnesses, RSV and influenza. Patient suffered acute syncopal spell in association with severe cough. No findings to suggest an acute cardiac event on initial evaluation Would maintain telemetry during in-hospital management Given resting sinus tachycardia agree with metoprolol succinate 50 mg/day. We will need to ensure patient continues posthospitalization Treat hypertension: Continue l losartan with room to titrate higher Tobacco cessation mandatory Would readdress high risk sleep apnea patient not on therapy 09/17/2022 Episode of acute dyspnea and apnea last night. No associated cardiac findings by EKG, telemetry or cardiac enzyme. Chest x-ray without heart failure Heart rate and blood pressure trending towards better control with the use of metoprolol would continue current dosing over room to increase Suspect patient would benefit from low-dose oral diuretic for management of hypertension on discharge Call with any further questions Admission and Anticipated Discharge Date Admission Date: September 14, 2022 Subjective Patient seen and examined, chart, medications, telemetry reviewed. Patient notes episode of gasping and shortness of breath last evening. No arrhythmias on telemetry chest x-ray clear transient apnea and hypoxia observed EKG without ST segment abnormalities Troponin negative Review of Systems Review of Systems: All systems reviewed & are unremarkable except as noted in Subjective Physical Exam Constitutional: + morbidly obese Eyes: PERRL, conjunctivae normal, anicteric sclerae ENMT: external ear and nose normal, oropharynx normal Mallampati Class: IV Neck: + thick neck Cardiovascular: RRR, no murmur, no edema Rate/Rhythm: + tachycardic Extremities: no edema Gastrointestinal (Abdomen): Percussion/Palpation: abdomen soft; abdomen nontender Musculoskeletal: no cyanosis or clubbing, extremities motor strength 5/5 Results & Data ([facility]) Vital Signs (Past 12 Hours) Vital Signs Temp Pulse Pulse Resp BP BP Pulse Ox 09/17/22 11:08 36.7 C 92 H 20 123/74 98 09/17/22 09:15 97 H 09/17/22 07:19 36.7 C 92 H 20 167/76 H 92 09/17/22 05:32 96 H 20 83 L 09/17/22 03:47 36.5 C 92 H 16 149/87 H 97 09/17/22 02:29 94 H 21 96 09/17/22 00:38 92 H O2 Del Method O2 Flow Rate 09/17/22 11:08 Room Air 09/17/22 09:15 09/17/22 07:19 BiPAP 09/17/22 05:32 10 09/17/22 03:47 CPAP 09/17/22 02:29 10 09/17/22 00:38
[2022-09-17] MEDS: BENZONATATE 100 MG CAPSULE PO PRN (14:38)
--- NOTE | 2022-09-17 16:58 | Hospitalist Progress Note ---
Date of Service September 17, 2022 Assessment & Plan (1) Tussive syncope: Plan: Present on admission after syncopal episode due to severe cough CT head showed no acute intracranial abnormality or calvarial fracture. Small posterior scalp contusions. No findings to suggest an acute cardiac event on initial evaluation No focal deficit on exam Continue monitor Influenza Recent hospitalization for RSV, now tested positive for influenza Continue Tamiflu continue oxygen supplement, guaifenesin/codeine continue incentive spirometry and flutter valve Nocturnal pulse oximetry showed desaturation greater than 30 minutes Diabetes type 2 Most recent hemoglobin A1c 8.8 ( 2021) resumed metformin and Trulicity on discharge Lantus and insulin sliding scale during hospital course Monitor BS Nocturnal hypoxia Mostly due to DAMION Nocturnal pulse oximetry showed desaturation greater than 30 minutes Pt needs to get a formal sleep study on discharge Pulm on board Pt will need to arrange for sleep study outpatient Continue BIPAP at night and while napping during the hospital course Will need oxygen at night on discharge while waiting to get the sleep study Transaminitis LFT trending down Continue monitor outpatient Hypomagnesemia Mg 1.9 today Continue monitor electrolytes Tobacco abuse Counseling on smoking cessation Nicotine patch added Hypertension Continue losartan 50 mg daily Continue monitor BP GI prophylaxis PPI twice daily DVT prophylaxis Lovenox CODE STATUS full code Admission and Anticipated Discharge Date Admission Date: September 14, 2022 Subjective Patient was seen and evaluated for follow-up of shortness of breath and cough due to flu Lying in bed with no acute distress he said that he is not feeling well today He said last night that he has a cough spell that he believe he had a syncopal episode He said that he is afraid to go home today He said that he started to cough out some phlegm Denies any chest pain, palpitation, dizziness, and fever. Review of Systems Review of Systems: All systems reviewed & are unremarkable except as noted in Subjective Physical Exam Physical Exam: General- No acute distress Head- atraumatic Eyes- PERRL, EOMI, ENT- oropharynx clear Neck- supple, no JVD Lungs- +coarse BS Heart- regular rhythm; no murmur Abdomen- normal bowel sounds, soft, nontender Extremities- no calf tenderness Neuro- alert, oriented x 3; PERRL, EOMI; no facial palsy; no dysarthria Skin- warm & dry Results & Data Results & Data ([facility]) Vital Signs (Past 12 Hours) Vital Signs Temp Pulse Pulse Resp BP Pulse Ox O2 Del Method 09/17/22 08:22 Room Air 09/17/22 15:41 36.6 C 95 H 20 136/84 95 Nasal Cannula 09/17/22 14:00 92 H 09/17/22 11:08 36.7 C 92 H 20 123/74 98 Room Air 09/17/22 09:15 97 H 09/17/22 07:19 36.7 C 92 H 20 167/76 H 92 BiPAP 09/17/22 05:32 96 H 20 83 L O2 Flow Rate 09/17/22 08:22 09/17/22 15:41 2 09/17/22 14:00 09/17/22 11:08 09/17/22 09:15 09/17/22 07:19 09/17/22 05:32 10
--- NOTE | 2022-09-17 19:09 | Electrocardiogram Report ---
Test Reason : Blood Pressure : / mmHG Vent. Rate : 090 BPM Atrial Rate : 090 BPM P-R Int : 134 ms QRS Dur : 102 ms QT Int : 400 ms P-R-T Axes : 012 014 046 degrees QTc Int : 489 ms Normal sinus rhythm Incomplete right bundle branch block Prolonged QT Abnormal ECG When compared with ECG of 16-SEP-2022 06:35, No significant change was found Confirmed by Nba Wallace ([id number]) on 09/17/2022 7:08:43 PM Referred By: REFERRED SELF Confirmed By:David Wallace
[2022-09-17] MEDS: METOPROLOL SUCC 25MG EXT REL TAB PO SCH (21:50)
[2022-09-17] MEDS: FAMOTIDINE 20 MG TAB PO SCH (21:50)
[2022-09-17] MEDS ORDERED: XOPENEX/ATROVENT 1.25mg/0.5MG NEB COMBO NEB STA (23:08)
[2022-09-17] MEDS ORDERED: MAGNESIUM SULFATE / D5W 1 GM/100 ML BAG IV ONE (23:09)
[2022-09-17] MEDS ORDERED: LEVALBUTEROL 1.25MG/0.5ML NEB INH STA (23:19)
[2022-09-17] MEDS ORDERED: IPRATROPIUM BROMIDE NEB SOLN 0.02% 2.5 ML VIAL INH STA (23:19)
[2022-09-17 23:35] LABS: Base Excess ABG 4.5 mEq/L (-9-1.8); HCO3 ABG 30 mmol/L (19-24); Oxygen Saturation ABG 96.8 % (90-95); PCO2 ABG 49 mmHg (35-46); PO2 ABG 79 mmHg (80-95)
[2022-09-17 23:55] LABS: Allen Test Pos (Pos)
[2022-09-17] MEDS ORDERED: FUROSEMIDE INJ 20 MG/2 ML VIAL IV ONE (23:59)
--- NOTE | 2022-09-18 00:22 | XRay Report ---
SINGLE VIEW CHEST CLINICAL HISTORY: Dyspnea FINDINGS: 2 AP, portable, upright chest radiographs are compared to study dated 09/16/2022 and correl ated with chest CT dated 09/14/2022. The examination is degraded by portable technique, apical lordot ic positioning, and patient rotation. The heart is mildly enlarged. The pulmonary vasculature is non congested. There is chronic elevation of the right hemidiaphragm. The lungs and pleural spaces are cl ear. No pneumothorax is seen. The bony thorax is grossly intact. IMPRESSION: 1. No active disease in the chest. 2. Foci of mild groundglass consolidations seen by CT are not apparent by x-ray. ACT 112: Negative or not required by law. Electronically signed by: Jaydon Wallace M.D. 09/18/2022 12:20 AM
[2022-09-18] MEDS ORDERED: XOPENEX/ATROVENT 1.25mg/0.5MG NEB COMBO NEB STA (03:16)
[2022-09-18] MEDS: BENZONATATE 100 MG CAPSULE PO PRN ×2 (03:24→20:42)
[2022-09-18] MEDS ORDERED: methylPREDNISolone 20 MG in SYRINGE 0 ML IV STA (03:34)
[2022-09-18] MEDS ORDERED: IPRATROPIUM BROMIDE NEB SOLN 0.02% 2.5 ML VIAL INH STA (03:35)
[2022-09-18] MEDS ORDERED: LEVALBUTEROL 1.25MG/0.5ML NEB INH STA (03:36)
[2022-09-18] MEDS: ENOXAPARIN INJ 40 MG/0.4 ML SYR SQ SCH ×2 (05:52→17:20)
[2022-09-18] MEDS: guaiFENesin/CODEINE 100MG/10MG 5ML UDC PO SCH ×4 (05:52→23:05)
[2022-09-18] MEDS: INSULIN ASPART PER UNIT SC SCH ×4 (08:06→20:52)
[2022-09-18] MEDS: LANTUS PER UNIT CHARGE SQ SCH ×2 (08:06→20:53)
[2022-09-18] MEDS: OSELTAMIVIR PHOSPHATE 75 MG CAP PO SCH ×2 (08:11→20:44)
[2022-09-18] MEDS: LOSARTAN POTASSIUM 50 MG TAB PO SCH (08:12)
[2022-09-18] MEDS: GABAPENTIN 100 MG CAP PO SCH ×2 (08:12→20:44)
[2022-09-18] MEDS: METOPROLOL SUCC 50MG EXT REL TAB PO SCH (08:12)
[2022-09-18] MEDS: NICOTINE 21 MG/24 HR TDSY TD SCH (08:12)
[2022-09-18] MEDS: PANTOprazole 40 MG TAB PO SCH ×2 (08:12→20:44)
--- NOTE | 2022-09-18 09:47 | Pulmonology Progress Note ---
Date of Service September 18, 2022 Assessment & Plan (1) Influenza A: (2) Tobacco abuse: (3) Multifocal pneumonia: (4) Tussive syncope: (5) Nocturnal hypoxia: (6) Morbid obesity: (7) Chronic respiratory failure with hypercapnia: Plan CT chest 09/06/2022 personally reviewed: Patchy opacity in the right upper lobe and right lower lobe Insignificant mediastinal lymphadenopathy 09/16/2022: ABG 7.37/52/85 on 3 L oxygen -- Multifocal pneumonia Influenza A positive COVID-19 PCR negative RSV was + 09/06/2022 Procalcitonin negative --Chronic hypercapnic respiratory failure Likely from underlying DAMION/OHS Will benefit from outpatient polysomnography --Current smoker Approximately [id number] smoking history Positive quitting explained the patient in depth PFT as an outpatient -- Probable DAMION/OHS Continue with BiPAP while in the hospital Patient will need dedicated sleep study on discharge as soon as possible -- Morbid obesity Advised to lose with diet and exercise Plan: Complete the course of oseltamivir Continue with guaifenesin-codeine [id number]-[id number] Patient still having apneic episodes while he is on BiPAP setting 15/8. I think he needs higher EPAP given he continues apneic episodes witnessed by RT as well as patient's description. I will change BiPAP settings to 14/10. If the patient is still having apneic episodes on this and would recommend to change to CPAP and go higher to 12. Case was discussed with RN and RT No further recommendation for pulmonary perspective. Please call directly with any questions Please note the above document was generated using voice recognition software. It may contain grammatical, syntax or spelling errors.Any formal questions or concerns about the content, text or information contained within the body of this dictation should be directly addressed to the provider for clarification. Admission and Anticipated Discharge Date Admission Date: September 14, 2022 Subjective Patient seen and examined at bedside. No acute distress. Overnight patient said that he while he was using the CPAP he had a get an episode where he felt he was drowning and he was not able to get breath. It goes with an apneic episode Coughing has improved. Able to bring up phlegm without any issues Denies any syncopal episodes after coming to the hospital. No nausea or vomiting Fair appetite. Review of Systems Review of Systems: All systems reviewed & are unremarkable except as noted in Subjective Physical Exam Physical Exam: Constitutional: No acute distress HEENT: EOMI, PERRLA, thick neck Respiratory system: Decreased air entry bilaterally, no wheeze, no rhonchi, positive crackles bilateral lower lobes CVS: S1-S2 positive, no murmurs or gallops, distant heart sounds Abdomen: Soft, nontender, nondistended, positive bowel sounds x4, obese Extremities: +2 pulses bilaterally radialis/ dorsalis pedis, no cyanosis, no edema Neuro: Awake alert oriented x3 Psych: Normal mood and affect G/U: No Shearer Skin: no rashes, warm and dry Lymphatic: no cervical or axillary lymphadenopathy Results & Data Results & Data ([facility]) Vital Signs (Past 12 Hours) Vital Signs Temp Pulse Pulse Resp BP Pulse Ox Pulse Ox 09/18/22 08:16 09/18/22 08:10 36.6 C 95 H 20 132/73 90 09/18/22 07:31 95 H 09/18/22 07:22 82 22 92 09/18/22 03:54 36.8 C 97 H 20 130/84 93 09/18/22 03:42 96 H 23 92 09/18/22 03:41 96 H 23 93 09/18/22 01:07 92 H 09/17/22 23:49 92 H 22 97 09/17/22 23:48 36.8 C 97 H 18 127/79 93 09/17/22 23:37 99 H 22 93 09/17/22 22:00 95 09/17/22 22:39 O2 Del Method O2 Del Method O2 Flow Rate O2 Flow Rate 09/18/22 08:16 Nasal Cannula 2 09/18/22 08:10 BiPAP 09/18/22 07:31 09/18/22 07:22 5 09/18/22 03:54 CPAP 09/18/22 03:42 5 09/18/22 03:41 BiPAP 5 09/18/22 01:07 09/17/22 23:49 5 09/17/22 23:48 BiPAP 09/17/22 23:37 BiPAP 5 09/17/22 22:00 Nasal Cannula 2 09/17/22 22:39 Nasal Cannula 2 Laboratory Results 09/16/22 08:07 PG Care Time/CCT Total # of Minutes Spent Total Time Spent with Patient: Total time spent is greater than 50% in coordination of care (as documented) at patient's floor/unit and/or counseling patient: Coding Level of Care Code 55478 Subseq Hosp Care Lvl 2 Diagnoses Influenza A J10.1 Tobacco abuse Z72.0 Multifocal pneumonia J18.9 Tussive syncope R55; R05.4 Nocturnal hypoxia G47.34 Morbid obesity E66.01 Chronic respiratory failure with hypercapnia J96.12
[2022-09-18 09:55] LABS: Albumin Globulin Ratio 1.2 (0.9-2); Albumin Level 4.1 gm/dl (3.4-5.0); Bilirubin,Total 0.7 mg/dl (0.2-1.0); Calcium 9.1 mg/dl (8.5-10.1); Creatinine Clr Calc Pharmacy 155.2 ml/min; Est GFR (African American) 122.4 ml/min; Est GFR (Non-African American) 105.6 ml/min; Globulin 3.4 gm/dl (2.5-4.0); Potassium 5.3 mmol/L (3.5-5.1); Total Protein 7.5 gm/dl (6.0-8.3)
--- NOTE | 2022-09-18 16:49 | Hospitalist Progress Note ---
Date of Service September 18, 2022 Assessment & Plan (1) Tussive syncope: Plan: Present on admission after syncopal episode due to severe cough CT head showed no acute intracranial abnormality or calvarial fracture. Small posterior scalp contusions. No findings to suggest an acute cardiac event on initial evaluation No focal deficit on exam Continue monitor Influenza Recent hospitalization for RSV, now tested positive for influenza Continue Tamiflu continue oxygen supplement, guaifenesin/codeine continue incentive spirometry and flutter valve Nocturnal pulse oximetry showed desaturation greater than 30 minutes Diabetes type 2 Most recent hemoglobin A1c 8.8 ( 2021) resumed metformin and Trulicity on discharge Lantus and insulin sliding scale during hospital course Monitor BS Nocturnal hypoxia Mostly due to DAMION Nocturnal pulse oximetry showed desaturation greater than 30 minutes As per pulmonology; patient is still having a apneic episodes while on BiPAP setting of 15/8. BiPAP settings changed to 14/10. If patient has continued apneic episodes; recommended CPAP and go high to 12. Transaminitis History of elevated LFTs Likely related with ROACH Will obtain liver ultrasound Will need outpatient follow-up and GI referral. Hypomagnesemia Mg 1.9 today Continue monitor electrolytes Tobacco abuse Counseling on smoking cessation Nicotine patch added Hypertension Continue losartan 50 mg daily Continue monitor BP GI prophylaxis PPI twice daily DVT prophylaxis Lovenox CODE STATUS full code Admission and Anticipated Discharge Date Admission Date: September 14, 2022 Subjective Patient reports that last night he felt drowning sensation and was unable to breathe. Likely related with apneic episode. He continues to be on 4 L of nasal cannula. Review of Systems Review of Systems: All systems reviewed & are unremarkable except as noted in Subjective Physical Exam Physical Exam: General- No acute distress. Alert orient x3 Eyes- PERRL, EOMI, ENT- oropharynx clear Neck- supple, no JVD Lungs-decreased air entry at bases. Heart- regular rhythm; no murmur Abdomen- normal bowel sounds, soft, nontender Extremities- no calf tenderness Neuro- alert, oriented x 3; PERRL, EOMI; no facial palsy; no dysarthria Skin- warm & dry Results & Data Results & Data ([facility]) Vital Signs (Past 12 Hours) Vital Signs Temp Pulse Pulse Resp BP Pulse Ox O2 Del Method 09/18/22 15:54 36.9 C 98 H 19 131/77 95 Nasal Cannula 09/18/22 15:36 101 H 09/18/22 12:24 36.8 C 103 H 20 144/88 H 95 Nasal Cannula 09/18/22 08:16 Nasal Cannula 09/18/22 08:10 36.6 C 95 H 20 132/73 90 BiPAP 09/18/22 07:31 95 H 09/18/22 07:22 82 22 92 O2 Flow Rate 09/18/22 15:54 4 09/18/22 15:36 09/18/22 12:24 4 09/18/22 08:16 2 09/18/22 08:10 09/18/22 07:31 09/18/22 07:22 5 Laboratory Results Laboratory Results WBC 7.32 K/ul (4.8-10.8) 09/16/22 08:07 RBC 5.21 M/uL (4.63-6.08) 09/16/22 08:07 Hgb 14.5 g/dl (14.0-18.0) 09/16/22 08:07 Hct 43.9 % (40.1-51.0) 09/16/22 08:07 MCV 84.3 fL (80.0-100.0) 09/16/22 08:07 MCH 27.8 pg (25.0-34.0) 09/16/22 08:07 MCHC 33.0 g/dL (32.0-36.0) 09/16/22 08:07 RDW Std Deviation 39.7 fL (36.4-46.3) 09/16/22 08:07 RDW Coeff of Abiodun 13.0 % (11.5-14.5) 09/16/22 08:07 Plt Count 221 K/uL (130-400) 09/16/22 08:07 MPV 9.3 fL (9.4-12.4) L 09/16/22 08:07 Immature Gran % (Auto) 1.7 % 09/15/22 05:27 Neut % (Auto) 51.6 % 09/15/22 05:27 Lymph % (Auto) 33.7 % 09/15/22 05:27 [place] % (Auto) 11.2 % 09/15/22 05:27 Eos % (Auto) 1.3 % 09/15/22 05:27 Baso % (Auto) 0.5 % 09/15/22 05:27 Neut # (Auto) 3.85 K/uL (1.4-6.5) 09/15/22 05:27 Lymph # (Auto) 2.52 K/uL (1.2-3.4) 09/15/22 05:27 [place] # (Auto) 0.84 K/uL (0.24-0.82) H 09/15/22 05:27 Eos # (Auto) 0.10 K/uL (0-0.50) 09/15/22 05:27 Baso # (Auto) 0.04 K/uL (0-0.2) 09/15/22 05:27 Immature Gran # (Auto) 0.13 K/uL (0.00-0.02) H 09/15/22 05:27 PT 10.8 Seconds (9.0-12.0) 09/14/22 Unknown INR 1.0 (0.9-1.1) 09/14/22 Unknown APTT 26.4 Seconds (21.0-31.0) 09/16/22 22:27 PTT Ratio 1.0 09/16/22 22:27 ABG pH 7.40 (7.35-7.45) 09/17/22 23:20 ABG pCO2 49 mmHg (35-46) H 09/17/22 23:20 ABG pO2 79 mmHg (80-95) L 09/17/22 23:20 ABG HCO3 30 mmol/L (19-24) H 09/17/22 23:20 ABG O2 Saturation 96.8 % (90-95) H 09/17/22 23:20 ABG Base Excess 4.5 mEq/L (-9-1.8) H 09/17/22 23:20 Mark Test Pos (Pos) 09/17/22 23:20 Oxygen Given 5L 09/17/22 23:20 Sodium 134 mmol/L (136-145) L 09/18/22 08:23 Potassium 5.3 mmol/L (3.5-5.1) H D 09/18/22 08:23 Chloride 97 mmol/L (98-107) L 09/18/22 08:23 Carbon Dioxide 30 mmol/L (21-32) 09/18/22 08:23 Anion Gap 7 (3-11) 09/18/22 08:23 BUN 20 mg/dl (6-23) 09/18/22 08:23 Creatinine 0.80 mg/dl (0.6-1.4) 09/18/22 08:23 Est Cr Clr Drug Dosing 155.2 ml/min 09/18/22 08:23 Est GFR ( Amer) 122.4 ml/min 09/18/22 08:23 Est GFR (Non-Af Amer) 105.6 ml/min 09/18/22 08:23 BUN/Creatinine Ratio 25.0 (10-20) H 09/18/22 08:23 Glucose 265 mg/dl (70-99(Fasting)) H 09/18/22 08:23 POC Glucose 193 mg/dl (70-99) H 09/18/22 16:23 Estimat Average Glucose 206 mg/dl 09/15/22 05:27 Hemoglobin A1c 8.8 % (4.5-5.6) H 09/15/22 05:27 Calcium 9.1 mg/dl (8.5-10.1) 09/18/22 08:23 Magnesium 2.2 mg/dl (1.7-2.4) 09/17/22 06:47 Total Bilirubin 0.7 mg/dl (0.2-1.0) 09/18/22 08:23 AST 75 U/L (13-39) H 09/18/22 08:23 ALT 173 U/L (7-52) H 09/18/22 08:23 Alkaline Phosphatase 67 U/L (34-104) 09/18/22 08:23 Troponin I High Sens 9.1 pg/ml (0-20) D 09/16/22 22:27 Total Protein 7.5 gm/dl (6.0-8.3) 09/18/22 08:23 Albumin 4.1 gm/dl (3.4-5.0) 09/18/22 08:23 Globulin 3.4 gm/dl (2.5-4.0) 09/18/22 08:23 Albumin/Globulin Ratio 1.2 (0.9-2) 09/18/22 08:23 Procalcitonin < 0.05 ng/ml (0-0.5) 09/17/22 08:21 SARS-CoV-2 (PCR) NEGATIVE (Negative) 09/14/22 13:38 Influenza Type A (PCR) Positive (Neg) A* 09/14/22 13:38 Influenza Type B (PCR) Negative (Neg) 09/14/22 13:38 RSV (RT-PCR) Negative (Neg) 09/14/22 13:38 Impressions Chest CTA 09/14/22 20:50 CT ANGIOGRAM OF THE CHEST CLINICAL HISTORY: Dyspnea. COMPARISON STUDY: Chest CT dated 09/07/2022 TECHNIQUE: Following the IV administration of 112 cc of Optiray 320, CT angiogram of the chest was performed from the upper abdomen to the thoracic inlet utilizing the pulmonary embolus protocol. Images are reviewed in the axial, sagittal, and coronal planes. 3-D MIPS images are created and assessed. IV contrast was administered without complication. A dose lowering technique was utilized adhering to the principles of ALARA. The examination is degraded by motion artifact. CT DOSE: 931.59 mGy.cm FINDINGS: Thyroid: Imaged portions of the thyroid gland are normal in size and attenuation. Thoracic aorta: The thoracic aorta is normal in caliber and demonstrates standard 3-vessel arch anatomy. No dissection is seen. Pulmonary vasculature: The pulmonary trunk is normal in caliber. There are no filling defects identified in main, lobar, or proximal segmental pulmonary br anches to suggest pulmonary embolus. Evaluation of the segmental and subsegmental branches is degraded by motion artifact. Heart: The heart is normal in size and without pericardial effusion. There are coronary artery calcifications. Lungs and pleural spaces: Evaluation of the lung parenchyma is compromised by motion artifact. There is multifocal patchy groundglass consolidation, greatest at the right apex and in the lower lobes There are scattered calcified granulomas. No pleural effusion is seen. The trachea and central airways appear clear. Mediastinum: Mildly enlarged mediastinal lymph nodes measure up to 11 mm in short axis. Daysi: Clear. Axillae: There is no axillary lymphadenopathy. Upper abdomen: There is hepatic steatosis. A small hiatal hernia is noted. Skeletal structures: No lytic or blastic bony lesions are seen. IMPRESSION: 1. There is no evidence of central pulmonary embolus in the main, lobar, or proximal segmental pulmonary arteries. Evaluation of the peripheral branches is significantly degraded by motion artifact. 2. Mild multifocal patchy groundglass consolidation is above is new from 09/07/2022 and typical for an infectious/inflammatory pneumonitis. Clinical correlation will be required. 3. Hepatic steatosis. 4. Coronary artery calcifications. 5. Additional findings as above. ACT 112: Negative or not required by law. Electronically signed by: Jaydon Wallace M.D. 09/15/2022 8:[address] 09/16/22 21:[address] DOSE: 687.98 mGy.cm HISTORY: Headache. Trauma. TECHNIQUE: Multiaxial CT images of the head were performed without the use of intravenous contrast. Automated exposure control was utilized for this study. A dose lowering technique was utilized adhering to the principles of ALARA. Comparison: Head CT 09/14/2022. Findings: Age-indeterminate nondisplaced nasal bone fractures. Mild mucosal thickening within the ethmoid air cells. The mastoid air cells are clear. Mild posterior scalp swelling again noted. The calvarium and skull base are intact. The ventricles and sulci are within normal limits. There is no mass, hematoma, midline shift, or acute infarct. Impression: 1. No acute intracranial abnormality. 2. Mild posterior scalp swelling. 3. Age-indeterminate but likely old nondisplaced nasal bone fractures. ACT 112: Negative or not required by law. Electronically signed by: Vijay Wadsworth M.D. 09/17/2022 7:17 AM Chest X-Ray 09/17/22 23:08 SINGLE VIEW CHEST CLINICAL HISTORY: Dyspnea FINDINGS: 2 AP, portable, upright chest radiographs are compared to study dated 09/16/2022 and correlated with chest CT dated 09/14/2022. The examination is degraded by portable technique, apical lordotic positioning, and patient rotation. The heart is mildly enlarged. The pulmonary vasculature is noncongested. There is chronic elevation of the right hemidiaphragm. The lungs and pleural spaces are clear. No pneumothorax is seen. The bony thorax is grossly intact. IMPRESSION: 1. No active disease in the chest. 2. Foci of mild groundglass consolidations seen by CT are not apparent by x-ray. ACT 112: Negative or not required by law. Electronically signed by: Jaydon Wallace M.D. 09/18/2022 12:20 AM
[2022-09-18] MEDS: METOPROLOL SUCC 25MG EXT REL TAB PO SCH (20:44)
[2022-09-18] MEDS: FAMOTIDINE 20 MG TAB PO SCH (20:44)
[2022-09-19] MEDS: guaiFENesin/CODEINE 100MG/10MG 5ML UDC PO SCH ×3 (05:30→17:11)
[2022-09-19] MEDS: ENOXAPARIN INJ 40 MG/0.4 ML SYR SQ SCH ×2 (05:30→17:00)
[2022-09-19 08:02] LABS: Basophils # (auto) 0.05 K/uL (0-0.2); Basophils % (auto) 0.6 %; Eosinophils # (auto) 0.26 K/uL (0-0.50); Eosinophils % (auto) 2.9 %; Hematocrit (blood only) 39.7 % (40.1-51.0); Hemoglobin 13.3 g/dl (14.0-18.0); Immature Granulocytes % (auto) 2.3 %; Lymphocytes # (auto) 2.31 K/uL (1.2-3.4); Lymphocytes % (auto) 26.1 %; Mean Corpuscular Hemoglobin 27.8 pg (25.0-34.0); Mean Corpuscular Hgb Conc 33.5 g/dL (32.0-36.0); Mean Corpuscular Volume 83.1 fL (80.0-100.0); Mean Platelet Volume 9.1 fL (9.4-12.4); Monocytes # (auto) 0.72 K/uL (0.24-0.82); Monocytes % (auto) 8.1 %; Neutrophils # (auto) 5.32 K/uL (1.4-6.5); Platelet Count 248 K/uL (130-400); RDW Coefficient of Variation 12.7 % (11.5-14.5); RDW Standard Deviation 38.6 fL (36.4-46.3); Red Blood Count 4.78 M/uL (4.63-6.08); White Blood Count 8.86 K/ul (4.8-10.8)
[2022-09-19 08:48] LABS: Albumin Globulin Ratio 1.2 (0.9-2); Albumin Level 3.8 gm/dl (3.4-5.0); BUN Creatinine Ratio 24.4 (10-20); Bilirubin,Total 0.7 mg/dl (0.2-1.0); Calcium 8.9 mg/dl (8.5-10.1); Creatinine Clr Calc Pharmacy 144.2 ml/min; Est GFR (African American) 118.8 ml/min; Est GFR (Non-African American) 102.5 ml/min; Globulin 3.1 gm/dl (2.5-4.0); Potassium 4.7 mmol/L (3.5-5.1); Total Protein 6.9 gm/dl (6.0-8.3)
[2022-09-19] MEDS: INSULIN ASPART PER UNIT SC SCH ×4 (08:58→21:55)
[2022-09-19] MEDS: GABAPENTIN 100 MG CAP PO SCH ×2 (09:47→21:19)
[2022-09-19] MEDS: OSELTAMIVIR PHOSPHATE 75 MG CAP PO SCH ×2 (09:47→21:19)
[2022-09-19] MEDS: METOPROLOL SUCC 50MG EXT REL TAB PO SCH (09:47)
[2022-09-19] MEDS: PANTOprazole 40 MG TAB PO SCH ×2 (09:47→21:19)
[2022-09-19] MEDS: NICOTINE 21 MG/24 HR TDSY TD SCH (09:48)
[2022-09-19] MEDS: LANTUS PER UNIT CHARGE SQ SCH ×2 (09:51→21:56)
--- NOTE | 2022-09-19 10:34 | Pulmonology Progress Note ---
Date of Service September 19, 2022 Assessment & Plan (1) Influenza A: (2) Tobacco abuse: (3) Multifocal pneumonia: (4) Tussive syncope: (5) Nocturnal hypoxia: (6) Morbid obesity: (7) Chronic respiratory failure with hypercapnia: Plan CT chest 09/06/2022 personally reviewed: Patchy opacity in the right upper lobe and right lower lobe Insignificant mediastinal lymphadenopathy 09/16/2022: ABG 7.37/52/85 on 3 L oxygen -- Multifocal pneumonia Influenza A positive COVID-19 PCR negative RSV was + 09/06/2022 Procalcitonin negative --Chronic hypercapnic respiratory failure Likely from underlying DAMION/OHS Will benefit from outpatient polysomnography --Current smoker Approximately [id number]-hjhk smoking history Positive quitting explained the patient in depth PFT as an outpatient -- Probable DAMION/OHS Continue with BiPAP while in the hospital Patient will need dedicated sleep study on discharge as soon as possible -- Morbid obesity Advised to lose with diet and exercise Plan: Patient tolerated BiPAP setting of 14/10 He will need polysomnography to be done as soon as possible so that he can get a CPAP/BiPAP machine at home. Case was discussed with Dr. Gilbert No further recommendation for pulmonary perspective. Please call directly with any questions Please note the above document was generated using voice recognition software. It may contain grammatical, syntax or spelling errors.Any formal questions or concerns about the content, text or information contained within the body of this dictation should be directly addressed to the provider for clarification. Admission and Anticipated Discharge Date Admission Date: September 14, 2022 Subjective Patient seen and examined at bedside. No acute distress, no adverse events overnight. Patient actually slept well last night. Denies any apneic episodes and no nightmares. Does cough and bring up clear phlegm. Denies any hemoptysis Fair appetite. No headache, no blurry vision Denies any chest pain. Shortness of breath is significantly improved Review of Systems Review of Systems: All systems reviewed & are unremarkable except as noted in Subjective Physical Exam Physical Exam: Constitutional: No acute distress HEENT: EOMI, PERRLA, thick neck Respiratory system: Decreased air entry bilaterally, no wheeze, no rhonchi, positive crackles bilateral lower lobes CVS: S1-S2 positive, no murmurs or gallops, distant heart sounds Abdomen: Soft, nontender, nondistended, positive bowel sounds x4, obese Extremities: +2 pulses bilaterally radialis/ dorsalis pedis, no cyanosis, no edema Neuro: Awake alert oriented x3 Psych: Normal mood and affect G/U: No Shearer Skin: no rashes, warm and dry Lymphatic: no cervical or axillary lymphadenopathy Results & Data Results & Data ([facility]) Vital Signs (Past 12 Hours) Vital Signs Temp Pulse Pulse Resp BP BP Pulse Ox 09/19/22 07:43 36.6 C 93 H 20 151/87 H 96 09/19/22 02:20 91 H 23 96 09/19/22 04:19 36.6 C 90 20 149/85 H 95 09/18/22 23:50 94 H 21 97 09/18/22 23:57 99 H 09/18/22 22:55 36.8 C 99 H 22 167/83 H 94 O2 Del Method O2 Flow Rate 09/19/22 07:43 Nasal Cannula 5 09/19/22 02:20 4 09/19/22 04:19 CPAP 09/18/22 23:50 4 09/18/22 23:57 09/18/22 22:55 Nasal Cannula 3 Laboratory Results 09/19/22 07:47 09/19/22 07:47 PG Care Time/CCT Total # of Minutes Spent Total Time Spent with Patient: Total time spent is greater than 50% in coordination of care (as documented) at patient's floor/unit and/or counseling patient: Coding Level of Care Code 00058 Subseq Hosp Care Lvl 2 Diagnoses Influenza A J10.1 Tobacco abuse Z72.0 Multifocal pneumonia J18.9 Tussive syncope R55; R05.4 Nocturnal hypoxia G47.34 Morbid obesity E66.01 Chronic respiratory failure with hypercapnia J96.12
--- NOTE | 2022-09-19 10:39 | Ultrasound Report ---
ULTRASOUND RIGHT UPPER QUADRANT ABDOMEN CLINICAL HISTORY: Elevated transaminases. COMPARISON STUDY: Abdominal CT dated 02/27/2021 TECHNIQUE: Real-time, grayscale, and color flow sonography of the right upper quadrant of the abdomen was performed. Images are reviewed in the transverse and longitudinal planes. FINDINGS: Liver: The liver is enlarged and demonstrates heterogeneously increased echotexture indicating modera te to severe steatosis. Note that this degrades acoustic penetration of the liver. Fatty sparing seen adjacent to the gallbladder fossa. There is no intrahepatic biliary ductal dilatation. The main port al vein is patent. Gallbladder: The gallbladder is normal in appearance. No gallstones are identified. There is no gallb ladder wall thickening or pericholecystic fluid. A sonographic Romero's sign is reportedly absent. Th e common bile duct measures up to 0.5 cm in diameter. Pancreas: Not well visualized due to overlying bowel gas. Right kidney: Survey images of the right kidney demonstrate normal size and echotexture. There is no hydronephrosis. Ascites: None. IMPRESSION: 1. Hepatomegaly noting moderate to severe steatosis. 2. No gallstones are seen. 3. Nonvisualization of the pancreas. ACT 112: Negative or not required by law. Electronically signed by: Jaydon Wallace M.D. 09/19/2022 10:38 AM
--- NOTE | 2022-09-19 13:58 | Hospitalist Progress Note ---
Date of Service September 19, 2022 Assessment & Plan (1) Tussive syncope: Plan: Present on admission after syncopal episode due to severe cough CT head showed no acute intracranial abnormality or calvarial fracture. Small posterior scalp contusions. No findings to suggest an acute cardiac event on initial evaluation No focal deficit on exam Continue monitor Influenza Recent hospitalization for RSV, now tested positive for influenza Continue Tamiflu continue oxygen supplement, guaifenesin/codeine continue incentive spirometry and flutter valve Nocturnal pulse oximetry showed desaturation greater than 30 minutes Diabetes type 2 Most recent hemoglobin A1c 8.8 ( 2021) resumed metformin and Trulicity on discharge Lantus and insulin sliding scale during hospital course Monitor BS Nocturnal hypoxia Mostly due to DAMION Nocturnal pulse oximetry showed desaturation greater than 30 minutes As per pulmonology; patient is still having a apneic episodes while on BiPAP setting of 15/8. BiPAP settings changed to 14/10. Transaminitis History of elevated LFTs Likely related with ROACH Liver ultrasound shows fatty liver. Needs outpatient GI follow-up. Hypomagnesemia Mg 1.9 today Continue monitor electrolytes Tobacco abuse Counseling on smoking cessation Nicotine patch added Hypertension losartan on hold due to hyperkalemia. Continue monitor BP GI prophylaxis PPI twice daily DVT prophylaxis Lovenox CODE STATUS full code Dispositionplanning to set up BiPAP for him on Wednesday. Patient has ABG on file; will need new pulse ox which will be done tonight ( at setting of 14/10 with no oxygen) Discussed with case management and pulmonology. Admission and Anticipated Discharge Date Admission Date: September 14, 2022 Subjective Patient seen and examined at bedside. He reported another episode of shortness of breath yesterday. Also reports two minutes of loss of consciousness. Telemetry reviewed; no episode of arrhythmia or pause. Review of Systems Review of Systems: All systems reviewed & are unremarkable except as noted in Subjective Physical Exam Physical Exam: General- No acute distress. Alert orient x3 Eyes- PERRL, EOMI, ENT- oropharynx clear Neck- supple, no JVD Lungs-decreased air entry at bases. Heart- regular rhythm; no murmur Abdomen- normal bowel sounds, soft, nontender Extremities- no calf tenderness Neuro- alert, oriented x 3; PERRL, EOMI; no facial palsy; no dysarthria Skin- warm & dry Results & Data Results & Data ([facility]) Vital Signs (Past 12 Hours) Vital Signs Temp Pulse Pulse Resp BP BP Pulse Ox 09/19/22 11:31 36.6 C 97 H 20 134/82 91 09/19/22 08:00 77 09/19/22 08:00 09/19/22 07:43 36.6 C 93 H 20 151/87 H 96 09/19/22 02:20 91 H 23 96 09/19/22 04:19 36.6 C 90 20 149/85 H 95 O2 Del Method O2 Flow Rate 09/19/22 11:31 Room Air 09/19/22 08:00 09/19/22 08:00 Room Air 09/19/22 07:43 Nasal Cannula 5 09/19/22 02:20 4 09/19/22 04:19 CPAP Laboratory Results Laboratory Results WBC 8.86 K/ul (4.8-10.8) 09/19/22 07:47 RBC 4.78 M/uL (4.63-6.08) 09/19/22 07:47 Hgb 13.3 g/dl (14.0-18.0) L 09/19/22 07:47 Hct 39.7 % (40.1-51.0) L 09/19/22 07:47 MCV 83.1 fL (80.0-100.0) 09/19/22 07:47 MCH 27.8 pg (25.0-34.0) 09/19/22 07:47 MCHC 33.5 g/dL (32.0-36.0) 09/19/22 07:47 RDW Std Deviation 38.6 fL (36.4-46.3) 09/19/22 07:47 RDW Coeff of Abiodun 12.7 % (11.5-14.5) 09/19/22 07:47 Plt Count 248 K/uL (130-400) 09/19/22 07:47 MPV 9.1 fL (9.4-12.4) L 09/19/22 07:47 Immature Gran % (Auto) 2.3 % 09/19/22 07:47 Neut % (Auto) 60.0 % 09/19/22 07:47 Lymph % (Auto) 26.1 % 09/19/22 07:47 Fallon % (Auto) 8.1 % 09/19/22 07:47 Eos % (Auto) 2.9 % 09/19/22 07:47 Baso % (Auto) 0.6 % 09/19/22 07:47 Neut # (Auto) 5.32 K/uL (1.4-6.5) 09/19/22 07:47 Lymph # (Auto) 2.31 K/uL (1.2-3.4) 09/19/22 07:47 Fallon # (Auto) 0.72 K/uL (0.24-0.82) 09/19/22 07:47 Eos # (Auto) 0.26 K/uL (0-0.50) 09/19/22 07:47 Baso # (Auto) 0.05 K/uL (0-0.2) 09/19/22 07:47 Immature Gran # (Auto) 0.20 K/uL (0.00-0.02) H 09/19/22 07:47 PT 10.8 Seconds (9.0-12.0) 09/14/22 Unknown INR 1.0 (0.9-1.1) 09/14/22 Unknown APTT 26.4 Seconds (21.0-31.0) 09/16/22 22:27 PTT Ratio 1.0 09/16/22 22:27 ABG pH 7.40 (7.35-7.45) 09/17/22 23:20 ABG pCO2 49 mmHg (35-46) H 09/17/22 23:20 ABG pO2 79 mmHg (80-95) L 09/17/22 23:20 ABG HCO3 30 mmol/L (19-24) H 09/17/22 23:20 ABG O2 Saturation 96.8 % (90-95) H 09/17/22 23:20 ABG Base Excess 4.5 mEq/L (-9-1.8) H 09/17/22 23:20 Mark Test Pos (Pos) 09/17/22 23:20 Oxygen Given 5L 09/17/22 23:20 Sodium 134 mmol/L (136-145) L 09/19/22 07:47 Potassium 4.7 mmol/L (3.5-5.1) 09/19/22 07:47 Chloride 97 mmol/L (98-107) L 09/19/22 07:47 Carbon Dioxide 32 mmol/L (21-32) 09/19/22 07:47 Anion Gap 5 (3-11) 09/19/22 07:47 BUN 21 mg/dl (6-23) 09/19/22 07:47 Creatinine 0.86 mg/dl (0.6-1.4) 09/19/22 07:47 Est Cr Clr Drug Dosing 144.2 ml/min 09/19/22 07:47 Est GFR ( Amer) 118.8 ml/min 09/19/22 07:47 Est GFR (Non-Af Amer) 102.5 ml/min 09/19/22 07:47 BUN/Creatinine Ratio 24.4 (10-20) H 09/19/22 07:47 Glucose 224 mg/dl (70-99(Fasting)) H 09/19/22 07:47 POC Glucose 209 mg/dl (70-99) H 09/19/22 11:27 Estimat Average Glucose 206 mg/dl 09/15/22 05:27 Hemoglobin A1c 8.8 % (4.5-5.6) H 09/15/22 05:27 Calcium 8.9 mg/dl (8.5-10.1) 09/19/22 07:47 Magnesium 2.2 mg/dl (1.7-2.4) 09/17/22 06:47 Total Bilirubin 0.7 mg/dl (0.2-1.0) 09/19/22 07:47 AST 56 U/L (13-39) H 09/19/22 07:47 ALT 135 U/L (7-52) H 09/19/22 07:47 Alkaline Phosphatase 59 U/L (34-104) 09/19/22 07:47 Troponin I High Sens 9.1 pg/ml (0-20) D 09/16/22 22:27 Total Protein 6.9 gm/dl (6.0-8.3) 09/19/22 07:47 Albumin 3.8 gm/dl (3.4-5.0) 09/19/22 07:47 Globulin 3.1 gm/dl (2.5-4.0) 09/19/22 07:47 Albumin/Globulin Ratio 1.2 (0.9-2) 09/19/22 07:47 Procalcitonin < 0.05 ng/ml (0-0.5) 09/17/22 08:21 SARS-CoV-2 (PCR) NEGATIVE (Negative) 09/14/22 13:38 Influenza Type A (PCR) Positive (Neg) A* 09/14/22 13:38 Influenza Type B (PCR) Negative (Neg) 09/14/22 13:38 RSV (RT-PCR) Negative (Neg) 09/14/22 13:38 Impressions Chest CTA 09/14/22 20:50 CT ANGIOGRAM OF THE CHEST CLINICAL HISTORY: Dyspnea. COMPARISON STUDY: Chest CT dated 09/07/2022 TECHNIQUE: Following the IV administration of 112 cc of Optiray 320, CT angiogram of the chest was performed from the upper abdomen to the thoracic inlet utilizing the pulmonary embolus protocol. Images are reviewed in the axial, sagittal, and coronal planes. 3-D MIPS images are created and assessed. IV contrast was administered without complication. A dose lowering technique was utilized adhering to the principles of ALARA. The examination is degraded by motion artifact. CT DOSE: 931.59 mGy.cm FINDINGS: Thyroid: Imaged portions of the thyroid gland are normal in size and attenuation. Thoracic aorta: The thoracic aorta is normal in caliber and demonstrates standard 3-vessel arch anatomy. No dissection is seen. Pulmonary vasculature: The pulmonary trunk is normal in caliber. There are no filling defects identified in main, lobar, or proximal segmental pulmonary branches to suggest pulmonary embolus. Evaluation of the segmental and subsegmental branches is degraded by motion artifact. Heart: The heart is normal in size and without pericardial effusion. There are coronary artery calcifications. Lungs and pleural spaces: Evaluation of the lung parenchyma is compromised by motion artifact. There is multifocal patchy groundglass consolidation, greatest at the right apex and in the lower lobes There are scattered calcified granulomas. No pleural effusion is seen. The trachea and central airways appear clear. Mediastinum: Mildly enlarged mediastinal lymph nodes measure up to 11 mm in short axis. Daysi: Clear. Axillae: There is no axillary lymphadenopathy. Upper abdomen: There is hepatic steatosis. A small hiatal hernia is noted. Skeletal structures: No lytic or blastic bony lesions are seen. IMPRESSION: 1. There is no evidence of central pulmonary embolus in the main, lobar, or proximal segmental pulmonary arteries. Evaluation of the peripheral branches is significantly degraded by motion artifact. 2. Mild multifocal patchy groundglass consolidation is above is new from 09/07/2022 and typical for an infectious/inflammatory pneumonitis. Clinical correlation will be required. 3. Hepatic steatosis. 4. Coronary artery calcifications. 5. Additional findings as above. ACT 112: Negative or not required by law. Electronically signed by: Jaydon Wallace M.D. 09/15/2022 8:[address] 09/16/22 21:[address] DOSE: 687.98 mGy.cm HISTORY: Headache. Trauma. TECHNIQUE: Multiaxial CT images of the head were performed without the use of intravenous contrast. Automated exposure control was utilized for this study. A dose lowering technique was utilized adhering to the principles of ALARA. Comparison: Head CT 09/14/2022. Findings: Age-indeterminate nondisplaced nasal bone fractures. Mild mucosal thickening within the ethmoid air cells. The mastoid air cells are clear. Mild posterior scalp swelling again noted. The calvarium and skull base are intact. The ventricles and sulci are within normal limits. There is no mass, hematoma, midline shift, or acute infarct. Impression: 1. No acute intracranial abnormality. 2. Mild posterior scalp swelling. 3. Age-indeterminate but likely old nondisplaced nasal bone fractures. ACT 112: Negative or not required by law. Electronically signed by: Vijay Wadsworth M.D. 09/17/2022 7:17 AM Chest X-Ray 09/17/22 23:08 SINGLE VIEW CHEST CLINICAL HISTORY: Dyspnea FINDINGS: 2 AP, portable, upright chest radiographs are compared to study dated 09/16/2022 and correlated with chest CT dated 09/14/2022. The examination is degraded by portable technique, apical lordotic positioning, and patient rotation. The heart is mildly enlarged. The pulmonary vasculature is noncongested. There is chronic elevation of the right hemidiaphragm. The lungs and pleural spaces are clear. No pneumothorax is seen. The bony thorax is grossly intact. IMPRESSION: 1. No active disease in the chest. 2. Foci of mild groundglass consolidations seen by CT are not apparent by x-ray. ACT 112: Negative or not required by law. Electronically signed by: Jaydon Wallace M.D. 09/18/2022 12:20 AM Liver Ultrasound 09/19/22 00:00 ULTRASOUND RIGHT UPPER QUADRANT ABDOMEN CLINICAL HISTORY: Elevated transaminases. COMPARISON STUDY: Abdominal CT dated 02/27/2021 TECHNIQUE: Real-time, grayscale, and color flow sonography of the right upper quadrant of the abdomen was performed. Images are reviewed in the transverse and longitudinal planes. FINDINGS: Liver: The liver is enlarged and demonstrates heterogeneously increased echotexture indicating moderate to severe steatosis. Note that this degrades acoustic penetration of the liver. Fatty sparing seen adjacent to the gallbladder fossa. There is no intrahepatic biliary ductal dilatation. The main portal vein is patent. Gallbladder: The gallbladder is normal in appearance. No gallstones are identified. There is no gallbladder wall thickening or pericholecystic fluid. A sonographic Romero's sign is reportedly absent. The common bile duct measures up to 0.5 cm in diameter. Pancreas: Not well visualized due to overlying bowel gas. Right kidney: Survey images of the right kidney demonstrate normal size and echotexture. There is no hydronephrosis. Ascites: None. IMPRESSION: 1. Hepatomegaly noting moderate to severe steatosis. 2. No gallstones are seen. 3. Nonvisualization of the pancreas. ACT 112: Negative or not required by law. Electronically signed by: Jaydon Wallace M.D. 09/19/2022 10:38 AM
[2022-09-19] MEDS: BENZONATATE 100 MG CAPSULE PO PRN ×2 (15:49→21:20)
[2022-09-19] MEDS: METOPROLOL SUCC 25MG EXT REL TAB PO SCH (21:19)
[2022-09-19] MEDS: FAMOTIDINE 20 MG TAB PO SCH (21:19)
[2022-09-19] MEDS: ACETAMINOPHEN 325 MG TAB PO PRN (21:20)
[2022-09-19] MEDS: traMADol HCL 50 MG TABLET PO PRN (22:03)
[2022-09-20] MEDS: guaiFENesin/CODEINE 100MG/10MG 5ML UDC PO SCH ×4 (00:53→17:20)
[2022-09-20] MEDS: ACETAMINOPHEN 325 MG TAB PO PRN (01:50)
[2022-09-20] MEDS: BENZONATATE 100 MG CAPSULE PO PRN (03:40)
[2022-09-20 06:24] LABS: Basophils # (auto) 0.08 K/uL (0-0.2); Basophils % (auto) 1.2 %; Eosinophils # (auto) 0.31 K/uL (0-0.50); Eosinophils % (auto) 4.8 %; Hemoglobin 13.2 g/dl (14.0-18.0); Immature Granulocytes # (auto) 0.27 K/uL (0.00-0.02); Immature Granulocytes % (auto) 4.1 %; Lymphocytes # (auto) 2.35 K/uL (1.2-3.4); Lymphocytes % (auto) 36.1 %; Mean Corpuscular Volume 84.7 fL (80.0-100.0); Mean Platelet Volume 9.4 fL (9.4-12.4); Monocytes # (auto) 0.66 K/uL (0.24-0.82); Monocytes % (auto) 10.1 %; Neutrophils # (auto) 2.84 K/uL (1.4-6.5); Neutrophils % (auto) 43.7 %; Platelet Count 269 K/uL (130-400); RDW Coefficient of Variation 12.8 % (11.5-14.5); RDW Standard Deviation 39.1 fL (36.4-46.3); Red Blood Count 4.72 M/uL (4.63-6.08); White Blood Count 6.51 K/ul (4.8-10.8)
[2022-09-20] MEDS: ENOXAPARIN INJ 40 MG/0.4 ML SYR SQ SCH ×2 (06:25→17:22)
[2022-09-20 06:49] LABS: Albumin Globulin Ratio 1.2 (0.9-2); Albumin Level 3.7 gm/dl (3.4-5.0); BUN Creatinine Ratio 22.1 (10-20); Bilirubin,Total 0.6 mg/dl (0.2-1.0); Calcium 8.9 mg/dl (8.5-10.1); Creatinine Clr Calc Pharmacy 130.2 ml/min; Est GFR (African American) 109.3 ml/min; Est GFR (Non-African American) 94.3 ml/min; Globulin 3.1 gm/dl (2.5-4.0); Potassium 4.9 mmol/L (3.5-5.1); Total Protein 6.8 gm/dl (6.0-8.3)
--- NOTE | 2022-09-20 07:21 | Pulmonology Progress Note ---
Date of Service September 20, 2022 Assessment & Plan (1) Influenza A: (2) Tobacco abuse: (3) Multifocal pneumonia: (4) Tussive syncope: (5) Nocturnal hypoxia: (6) Morbid obesity: (7) Chronic respiratory failure with hypercapnia: Plan CT chest 09/06/2022 personally reviewed: Patchy opacity in the right upper lobe and right lower lobe Insignificant mediastinal lymphadenopathy 09/16/2022: ABG 7.37/52/85 on 3 L oxygen -- Multifocal pneumonia Influenza A positive COVID-19 PCR negative RSV was + 09/06/2022 Procalcitonin negative --Chronic hypercapnic respiratory failure Likely from underlying DAMION/OHS Will benefit from outpatient polysomnography --Current smoker Approximately 94-gwuv-cohs smoking history Positive quitting explained the patient in depth PFT as an outpatient -- Probable DAMION/OHS Continue with BiPAP while in the hospital Patient will need dedicated sleep study on discharge as soon as possible -- Morbid obesity Advised to lose with diet and exercise Plan: Continue with BiPAP setting of 14/10, patient supposed to get a loaner on getting home. Would recommend polysomnography to be done as soon as possible so that he can get a CPAP/BiPAP machine at home. No further recommendation for pulmonary perspective. Please call directly with any questions Please note the above document was generated using voice recognition software. It may contain grammatical, syntax or spelling errors.Any formal questions or concerns about the content, text or information contained within the body of this dictation should be directly addressed to the provider for clarification. Admission and Anticipated Discharge Date Admission Date: September 14, 2022 Subjective Patient seen and examined at bedside. No acute distress, no adverse events overnight He slept well while using the BiPAP 14/10 Shortness of breath improved Coughing has decreased in intensity. Bringing up clear phlegm No hemoptysis Fair appetite. Review of Systems Review of Systems: All systems reviewed & are unremarkable except as noted in Subjective Physical Exam Physical Exam: Constitutional: No acute distress HEENT: EOMI, PERRLA, thick neck Respiratory system: Decreased air entry bilaterally, no wheeze, no rhonchi, positive crackles bilateral lower lobes CVS: S1-S2 positive, no murmurs or gallops, distant heart sounds Abdomen: Soft, nontender, nondistended, positive bowel sounds x4, obese Extremities: +2 pulses bilaterally radialis/ dorsalis pedis, no cyanosis, no edema Neuro: Awake alert oriented x3 Psych: Normal mood and affect G/U: No Shearer Skin: no rashes, warm and dry Lymphatic: no cervical or axillary lymphadenopathy Results & Data Results & Data ([facility]) Vital Signs (Past 12 Hours) Vital Signs Temp Pulse Pulse Pulse Pulse Resp BP 09/20/22 05:56 83 21 09/20/22 03:07 36.3 C L 63 18 148/81 H 09/20/22 02:11 85 85 09/20/22 02:11 80 16 09/20/22 00:31 09/19/22 22:41 36.2 C L 92 H 20 139/80 09/19/22 21:50 95 H 27 H 09/19/22 21:50 94 H Pulse Ox Pulse Ox Pulse Ox O2 Del Method O2 Del Method O2 Del Method O2 Flow Rate 09/20/22 05:56 92 2 09/20/22 03:07 94 CPAP 09/20/22 02:11 93 39 L BiPAP BiPAP 09/20/22 02:11 39 L 09/20/22 00:31 Room Air 09/19/22 22:41 92 CPAP 09/19/22 21:50 93 09/19/22 21:50 93 BiPAP O2 Flow Rate 09/20/22 05:56 09/20/22 03:07 09/20/22 02:11 2 09/20/22 02:11 09/20/22 00:31 09/19/22 22:41 09/19/22 21:50 09/19/22 21:50 Laboratory Results 09/20/22 06:01 09/20/22 06:01 PG Care Time/CCT Total # of Minutes Spent Total Time Spent with Patient: Total time spent is greater than 50% in coordination of care (as documented) at patient's floor/unit and/or counseling patient: Coding Level of Care Code 57314 Subseq Hosp Care Lvl 2 Diagnoses Influenza A J10.1 Tobacco abuse Z72.0 Multifocal pneumonia J18.9 Tussive syncope R55; R05.4 Nocturnal hypoxia G47.34 Morbid obesity E66.01 Chronic respiratory failure with hypercapnia J96.12
[2022-09-20] MEDS: PANTOprazole 40 MG TAB PO SCH ×2 (08:23→20:09)
[2022-09-20] MEDS: METOPROLOL SUCC 50MG EXT REL TAB PO SCH (08:24)
[2022-09-20] MEDS: GABAPENTIN 100 MG CAP PO SCH ×2 (08:25→20:10)
[2022-09-20] MEDS: NICOTINE 21 MG/24 HR TDSY TD SCH (08:25)
[2022-09-20] MEDS: INSULIN ASPART PER UNIT SC SCH ×4 (08:31→21:06)
[2022-09-20] MEDS: LANTUS PER UNIT CHARGE SQ SCH ×2 (08:32→21:07)
[2022-09-20] MEDS ORDERED: COUGH DROP (SUGAR FREE) LOZ 24 LOZ/1 BOX BUCCAL ONE (10:51)
--- NOTE | 2022-09-20 13:37 | Hospitalist Progress Note ---
Date of Service September 20, 2022 Assessment & Plan (1) Tussive syncope: Plan: Present on admission after syncopal episode due to severe cough CT head showed no acute intracranial abnormality or calvarial fracture. Small posterior scalp contusions. No findings to suggest an acute cardiac event on initial evaluation No focal deficit on exam Continue monitor Nocturnal hypoxia Mostly due to DAMION Nocturnal pulse oximetry showed desaturation greater than 30 minutes As per pulmonology; patient is still having a apneic episodes while on BiPAP setting of 15/8. BiPAP settings changed to 14/10. Doing well on the setting. Influenza Recent hospitalization for RSV, now tested positive for influenza Finished Tamiflu course. Diabetes type 2 Most recent hemoglobin A1c 8.8 ( 2021) resumed metformin and Trulicity on discharge Lantus and insulin sliding scale during hospital course Blood glucose on the higher side; Lantus and NovoLog titrated up. Transaminitis History of elevated LFTs Likely related with ROACH Liver ultrasound shows fatty liver Needs outpatient GI follow-up. Tobacco abuse Counseling on smoking cessation Nicotine patch added Hypertension losartan resumed Continue monitor BP GI prophylaxis PPI twice daily DVT prophylaxis Lovenox CODE STATUS full code Dispositionprescription for BiPAP provided to certified social workers in health care with setting of 14/10. It will likely be delivered tomorrow at his house. Discharge tomorrow after BiPAP is set up. Admission and Anticipated Discharge Date Admission Date: September 14, 2022 Subjective Patient seen and examined at bedside. Overnight oximetry was performed; patient desaturated without any oxygen and saturated well at 2 L with a BiPAP setting of 14/10. Review of Systems Review of Systems: All systems reviewed & are unremarkable except as noted in Subjective Physical Exam Physical Exam: General- No acute distress. Alert orient x3. Morbidly obese Eyes- PERRL, EOMI, ENT- oropharynx clear Neck- supple, no JVD Lungs-decreased air entry at bases. Heart- regular rhythm; no murmur Abdomen- normal bowel sounds, soft, nontender Extremities- no calf tenderness Neuro- alert, oriented x 3; PERRL, EOMI; no facial palsy; no dysarthria Skin- warm & dry Results & Data Results & Data ([facility]) Vital Signs (Past 12 Hours) Vital Signs Temp Pulse Pulse Pulse Pulse Resp BP 09/20/22 12:03 37.0 C 98 H 20 153/90 H 09/20/22 11:13 86 09/20/22 08:35 09/20/22 07:33 36.5 C 84 18 09/20/22 05:56 83 21 09/20/22 03:07 36.3 C L 63 18 09/20/22 02:11 85 85 09/20/22 02:11 80 16 BP Pulse Ox Pulse Ox Pulse Ox O2 Del Method O2 Del Method O2 Del Method 09/20/22 12:03 96 Room Air 09/20/22 11:13 09/20/22 08:35 Room Air 09/20/22 07:33 142/84 H 94 CPAP 09/20/22 05:56 92 09/20/22 03:07 148/81 H 94 CPAP 09/20/22 02:11 93 39 L BiPAP BiPAP 09/20/22 02:11 39 L O2 Flow Rate O2 Flow Rate 09/20/22 12:03 09/20/22 11:13 09/20/22 08:35 09/20/22 07:33 1 09/20/22 05:56 2 09/20/22 03:07 09/20/22 02:11 2 09/20/22 02:11
[2022-09-20] MEDS: METOPROLOL SUCC 25MG EXT REL TAB PO SCH (20:09)
[2022-09-20] MEDS: FAMOTIDINE 20 MG TAB PO SCH (20:09)
[2022-09-21] MEDS: guaiFENesin/CODEINE 100MG/10MG 5ML UDC PO SCH ×4 (00:54→17:34)
[2022-09-21] MEDS: ENOXAPARIN INJ 40 MG/0.4 ML SYR SQ SCH ×2 (04:53→17:34)
[2022-09-21 07:05] LABS: Basophils # (auto) 0.09 K/uL (0-0.2); Basophils % (auto) 1.2 %; Eosinophils # (auto) 0.34 K/uL (0-0.50); Eosinophils % (auto) 4.4 %; Hematocrit (blood only) 40.6 % (40.1-51.0); Hemoglobin 13.5 g/dl (14.0-18.0); Immature Granulocytes # (auto) 0.35 K/uL (0.00-0.02); Immature Granulocytes % (auto) 4.6 %; Lymphocytes # (auto) 1.97 K/uL (1.2-3.4); Lymphocytes % (auto) 25.8 %; Mean Corpuscular Hemoglobin 27.4 pg (25.0-34.0); Mean Corpuscular Hgb Conc 33.3 g/dL (32.0-36.0); Mean Corpuscular Volume 82.5 fL (80.0-100.0); Mean Platelet Volume 9.5 fL (9.4-12.4); Monocytes # (auto) 0.84 K/uL (0.24-0.82); Neutrophils # (auto) 4.06 K/uL (1.4-6.5); Platelet Count 261 K/uL (130-400); RDW Coefficient of Variation 12.9 % (11.5-14.5); RDW Standard Deviation 38.8 fL (36.4-46.3); Red Blood Count 4.92 M/uL (4.63-6.08); White Blood Count 7.65 K/ul (4.8-10.8)
[2022-09-21 07:29] LABS: BUN Creatinine Ratio 20.5 (10-20); Calcium 9.3 mg/dl (8.5-10.1); Creatinine Clr Calc Pharmacy 158.1 ml/min; Est GFR (African American) 123.7 ml/min; Est GFR (Non-African American) 106.7 ml/min; Potassium 4.7 mmol/L (3.5-5.1)
[2022-09-21] MEDS: PANTOprazole 40 MG TAB PO SCH ×2 (07:57→22:08)
[2022-09-21] MEDS: GABAPENTIN 100 MG CAP PO SCH ×3 (07:57→22:11)
[2022-09-21] MEDS: METOPROLOL SUCC 50MG EXT REL TAB PO SCH (07:57)
[2022-09-21] MEDS: INSULIN ASPART PER UNIT SC SCH ×4 (08:05→22:00)
[2022-09-21] MEDS: LANTUS PER UNIT CHARGE SQ SCH ×2 (08:05→22:00)
[2022-09-21] MEDS: NICOTINE 21 MG/24 HR TDSY TD SCH (08:10)
--- NOTE | 2022-09-21 21:51 | Hospitalist Progress Note ---
Date of Service September 21, 2022 Assessment & Plan (1) Tussive syncope: Plan: Present on admission after syncopal episode due to severe cough CT head showed no acute intracranial abnormality or calvarial fracture. Small posterior scalp contusions. No findings to suggest an acute cardiac event on initial evaluation No focal deficit on exam Continue monitor Influenza Recent hospitalization for RSV, now tested positive for influenza Continue Tamiflu continue oxygen supplement, guaifenesin/codeine continue incentive spirometry and flutter valve Nocturnal pulse oximetry showed desaturation greater than 30 minutes clinically improves Diabetes type 2 Most recent hemoglobin A1c 8.8 ( 2021) resumed metformin and Trulicity on discharge Lantus and insulin sliding scale during hospital course Monitor BS Nocturnal hypoxia Chronic hypercapnic respiratory failure Likely from underlying DAMION/OHS Patient needs BiPAP on discharge to treat chronic hypercapnic and schedule outpatient study to determine severity of overlap to effectively manage that component Pulmonology on board recommended to continue with BiPAP setting of 31/07 Would recommend polysomnography to be done as soon as possible so that he can get a CPAP/BiPAP machine at home. Nocturnal pulse oximetry showed desaturation greater than 30 minutes Clinically improved significantly Transaminitis LFT trending down Liver ultrasound showed Hepatomegaly noting moderate to severe steatosis. Will need to arrange outpatient follow-up with GI Hypomagnesemia Mg 1.9 today Stable Tobacco abuse Counseling on smoking cessation Currently on nicotine patch Hypertension Continue losartan 50 mg daily Continue monitor BP GI prophylaxis PPI twice daily DVT prophylaxis Lovenox CODE STATUS full code Disposition Waiting for BiPAP machine before discharge to home Admission and Anticipated Discharge Date Admission Date: September 14, 2022 Subjective Patient was seen and evaluated for follow-up Lying in bed with no acute distress watching TV while talking on his cell phone Said that he feels okay He has been using the BiPAP at night and seems to tolerated well Denies any chest pain, palpitation, dizziness, shortness of breath. Review of Systems Review of Systems: All systems reviewed & are unremarkable except as noted in Subjective Physical Exam Physical Exam: General- No acute distress Head- atraumatic Eyes- PERRL, EOMI, ENT- oropharynx clear Neck- supple, no JVD Lungs-no wheezing or crackles Heart- regular rhythm; no murmur Abdomen- normal bowel sounds, soft, nontender Extremities- no calf tenderness Neuro- alert, oriented x 3; PERRL, EOMI; no facial palsy; no dysarthria Skin- warm & dry Results & Data Results & Data ([facility]) Vital Signs (Past 12 Hours) Vital Signs Temp Pulse Pulse Resp BP Pulse Ox O2 Del Method 09/21/22 19:11 37.5 C 94 H 18 164/90 H 96 Room Air 09/21/22 14:52 94 H 09/21/22 11:53 36.7 C 93 H 20 156/74 H 95 Room Air
[2022-09-21] MEDS: METOPROLOL SUCC 25MG EXT REL TAB PO SCH (22:08)
[2022-09-21] MEDS: FAMOTIDINE 20 MG TAB PO SCH (22:09)
[2022-09-21] MEDS ORDERED: COUGH DROP (SUGAR FREE) LOZ 24 LOZ/1 BOX BUCCAL PRN (22:40)
[2022-09-22] MEDS: guaiFENesin/CODEINE 100MG/10MG 5ML UDC PO SCH ×3 (00:30→12:07)
[2022-09-22] MEDS: ENOXAPARIN INJ 40 MG/0.4 ML SYR SQ SCH (06:09)
[2022-09-22] MEDS: METOPROLOL SUCC 50MG EXT REL TAB PO SCH (07:53)
[2022-09-22] MEDS: GABAPENTIN 100 MG CAP PO SCH (07:53)
[2022-09-22] MEDS: PANTOprazole 40 MG TAB PO SCH (07:53)
[2022-09-22] MEDS: NICOTINE 21 MG/24 HR TDSY TD SCH (07:54)
[2022-09-22] MEDS: LANTUS PER UNIT CHARGE SQ SCH (07:56)
[2022-09-22] MEDS: INSULIN ASPART PER UNIT SC SCH ×2 (07:56→12:02)
--- NOTE | 2022-09-22 16:13 | Discharge Summary ---
Date of Service September 22, 2022 Admission HPI Per Admitting Provider CHIEF COMPLAINT: Shortness of breath, syncope. HISTORY OF PRESENT ILLNESS: This 46-year-old male with past medical history significant for type 2 diabetes, diabetic polyneuropathy, hyperlipidemia, hypertension, gastroparesis, irritable bowel syndrome, morbid obesity, GERD, degenerative disk disease, neuropathy, history of DVT, ongoing tobacco use disorder, presents with shortness of breath and syncope. The patient was recently in the hospital for RSV, was discharged on 09/07/2022. After discharge, he was not feeling well. He again saw the family doctor on 09/11/2022 and was prescribed tapering prednisone and today he again had office visit for followup visit. Still, he was not getting better. He is still having a lot of cough and short of breath. He continues to smoke and also his girlfriend was admitted to hospital with a flu and the patient was monitoring oxygen saturation at home is typically in the upper 80s and low 90s, and advised to complete the course of prednisone and continue the albuterol as needed, and also ordered chest x-ray and again flu, RSV, and COVID test, but after going home, he was lying in the bed, he suddenly had a lot of cough and he felt like he could not breathe and he raised up in the bed but he felt like floating and next thing is he fell on the floor and hit his head. He did not know falling down. He woke up he thinks after a few minutes, like 5-10 minutes and called his family and he was brought in here. CT head, he has some small posterior scalp contusion otherwise ok.His oxygen saturations are okay here on room air, was slightly tachycardic. Has arsalan oing cough. Denies any fevers .Influenza A came back positive. COVID, influenza B, and RSV are negative. The patient is eating and drinking okay. Denies any chest pain, has some headache, no blurred visions, no runny nose, no sore throat. No nausea or vomiting. Has some diarrhea. No abdominal pain. Normal bladder movements. No swelling in the legs. Admission Exam Per Admitting Provider GENERAL: The patient is morbidly obese, not in acute distress. VITAL SIGNS: Temperature 36.9, pulse 106, respiratory rate 21, blood pressure 152/95, oxygen 95% on room air. HEENT: Pupils equal, round and reactive to light. Oral mucosa moist. NECK: No JVD, no neck masses. CARDIOVASCULAR: S1 and S2 heard. Regular rate and rhythm. No murmur, no gallop. RESPIRATORY SYSTEM: Normal AP diameter. No accessory muscle use. No wheezing, no crackles. ABDOMEN: Soft, bowel sounds present, nontender, no distention. CENTRAL NERVOUS SYSTEM: Cranial nerves II through XII grossly intact, nonfocal. EXTREMITIES: No edema, no erythema. Principal Diagnosis Tussive syncope Influenza Diabetes type 2 Nocturnal hypoxia Chronic hypercapnic respiratory failure Transaminitis Hypomagnesemia Tobacco abuse Hypertension Discharge Exam General- No acute distress Head- atraumatic Eyes- PERRL, EOMI, ENT- oropharynx clear Neck- supple, no JVD Lungs-no wheezing or crackles Heart- regular rhythm; no murmur Abdomen- normal bowel sounds, soft, nontender Extremities- no calf tenderness Neuro- alert, oriented x 3; PERRL, EOMI; no facial palsy; no dysarthria Skin- warm & dry Discharge Data Allergies Allergy/AdvReac Type Severity Reaction Status Date / Time Cephalosporins Allergy Unknown Unknown Verified 09/06/22 13:25 NSAIDS (Non-Steroidal AdvReac Intermediate gastroparesis, Verified 09/06/22 13:25 Anti-Inflamma kidney problems Consultations 09/14/22 19:21 ED Decision to Admit Stat 09/15/22 08:00 Consult Cardiology Routine 09/17/22 04:21 Consult Pulmonology Routine Ordered Studies 09/14/22 16:55 CT head/brain wo con Stat 09/14/22 20:50 CT angio chest PE protocol Urgent 09/16/22 21:25 CT head/brain wo con Urgent 09/19/22 00:00 US liver Routine Laboratory Results WBC 7.65 K/ul (4.8-10.8) 09/21/22 06:46 RBC 4.92 M/uL (4.63-6.08) 09/21/22 06:46 Hgb 13.5 g/dl (14.0-18.0) L 09/21/22 06:46 Hct 40.6 % (40.1-51.0) 09/21/22 06:46 MCV 82.5 fL (80.0-100.0) 09/21/22 06:46 MCH 27.4 pg (25.0-34.0) 09/21/22 06:46 MCHC 33.3 g/dL (32.0-36.0) 09/21/22 06:46 RDW Std Deviation 38.8 fL (36.4-46.3) 09/21/22 06:46 RDW Coeff of Abiodun 12.9 % (11.5-14.5) 09/21/22 06:46 Plt Count 261 K/uL (130-400) 09/21/22 06:46 MPV 9.5 fL (9.4-12.4) 09/21/22 06:46 Immature Gran % (Auto) 4.6 % 09/21/22 06:46 Neut % (Auto) 53.0 % 09/21/22 06:46 Lymph % (Auto) 25.8 % 09/21/22 06:46 Jones % (Auto) 11.0 % 09/21/22 06:46 Eos % (Auto) 4.4 % 09/21/22 06:46 Baso % (Auto) 1.2 % 09/21/22 06:46 Neut # (Auto) 4.06 K/uL (1.4-6.5) 09/21/22 06:46 Lymph # (Auto) 1.97 K/uL (1.2-3.4) 09/21/22 06:46 Jones # (Auto) 0.84 K/uL (0.24-0.82) H 09/21/22 06:46 Eos # (Auto) 0.34 K/uL (0-0.50) 09/21/22 06:46 Baso # (Auto) 0.09 K/uL (0-0.2) 09/21/22 06:46 Immature Gran # (Auto) 0.35 K/uL (0.00-0.02) H 09/21/22 06:46 PT 10.8 Seconds (9.0-12.0) 09/14/22 Unknown INR 1.0 (0.9-1.1) 09/14/22 Unknown APTT 26.4 Seconds (21.0-31.0) 09/16/22 22: PTT Ratio 1.0 09/16/22 22:27 ABG pH 7.40 (7.35-7.45) 09/17/22 23:20 ABG pCO2 49 mmHg (35-46) H 09/17/22 23:20 ABG pO2 79 mmHg (80-95) L 09/17/22 23:20 ABG HCO3 30 mmol/L (19-24) H 09/17/22 23:20 ABG O2 Saturation 96.8 % (90-95) H 09/17/22 23:20 ABG Base Excess 4.5 mEq/L (-9-1.8) H 09/17/22 23:20 Mark Test Pos (Pos) 09/17/22 23:20 Oxygen Given 5L 09/17/22 23:20 Sodium 134 mmol/L (136-145) L 09/21/22 06:46 Potassium 4.7 mmol/L (3.5-5.1) 09/21/22 06:46 Chloride 99 mmol/L (98-107) 09/21/22 06:46 Carbon Dioxide 31 mmol/L (21-32) 09/21/22 06:46 Anion Gap 4 (3-11) 09/21/22 06:46 BUN 16 mg/dl (6-23) 09/21/22 06:46 Creatinine 0.78 mg/dl (0.6-1.4) 09/21/22 06:46 Est Cr Clr Drug Dosing 158.1 ml/min 09/21/22 06:46 Est GFR ( Amer) 123.7 ml/min 09/21/22 06:46 Est GFR (Non-Af Amer) 106.7 ml/min 09/21/22 06:46 BUN/Creatinine Ratio 20.5 (10-20) H 09/21/22 06:46 Glucose 215 mg/dl (70-99(Fasting)) H 09/21/22 06:46 POC Glucose 202 mg/dl (70-99) H 09/22/22 15:58 Estimat Average Glucose 206 mg/dl 09/15/22 05:27 Hemoglobin A1c 8.8 % (4.5-5.6) H 09/15/22 05:27 Calcium 9.3 mg/dl (8.5-10.1) 09/21/22 06:46 Magnesium 2.2 mg/dl (1.7-2.4) 09/17/22 06:47 Total Bilirubin 0.6 mg/dl (0.2-1.0) 09/20/22 06:01 AST 77 U/L (13-39) H 09/20/22 06:01 ALT 155 U/L (7-52) H 09/20/22 06:01 Alkaline Phosphatase 56 U/L (34-104) 09/20/22 06:01 Troponin I High Sens 9.1 pg/ml (0-20) D 09/16/22 22:27 Total Protein 6.8 gm/dl (6.0-8.3) 09/20/22 06:01 Albumin 3.7 gm/dl (3.4-5.0) 09/20/22 06:01 Globulin 3.1 gm/dl (2.5-4.0) 09/20/22 06:01 Albumin/Globulin Ratio 1.2 (0.9-2) 09/20/22 06:01 Procalcitonin < 0.05 ng/ml (0-0.5) 09/17/22 08:21 SARS-CoV-2 (PCR) NEGATIVE (Negative) 09/14/22 13:38 Influenza Type A (PCR) Positive (Neg) A* 09/14/22 13:38 Influenza Type B (PCR) Negative (Neg) 09/14/22 13:38 RSV (RT-PCR) Negative (Neg) 09/14/22 13:38 Impressions Chest CTA 09/14/22 20:50 CT ANGIOGRAM OF THE CHEST CLINICAL HISTORY: Dyspnea. COMPARISON STUDY: Chest CT dated 09/07/2022 TECHNIQUE: Following the IV administration of 112 cc of Optiray 320, CT angiogram of the chest was performed from the upper abdomen to the thoracic inlet utilizing the pulmonary embolus protocol. Images are reviewed in the axial, sagittal, and coronal planes. 3-D MIPS images are created and assessed. IV contrast was administered without complication. A dose lowering technique was utilized adhering to the principles of ALARA. The examination is degraded by motion artifact. CT DOSE: 931.59 mGy.cm FINDINGS: Thyroid: Imaged portions of the thyroid gland are normal in size and attenuation. Thoracic aorta: The thoracic aorta is normal in caliber and demonstrates standard 3-vessel arch anatomy. No dissection is seen. Pulmonary vasculature: The pulmonary trunk is normal in caliber. There are no filling defects identified in main, lobar, or proximal segmental pulmonary branches to suggest pulmonary embolus. Evaluation of the segmental and subsegmental branches is degraded by motion artifact. Heart: The heart is normal in size and without pericardial effusion. There are coronary artery calcifications. Lungs and pleural spaces: Evaluation of the lung parenchyma is compromised by motion artifact. There is multifocal patchy groundglass consolidation, greatest at the right apex and in the lower lobes There are scattered calcified granulomas. No pleural effusion is seen. The trachea and central airways appear clear. Mediastinum: Mildly enlarged mediastinal lymph nodes measure up to 11 mm in short axis. Daysi: Clear. Axillae: There is no axillary lymphadenopathy. Upper abdomen: There is hepatic steatosis. A small hiatal hernia is noted. Skeletal structures: No lytic or blastic bony lesions are seen. IMPRESSION: 1. There is no evidence of central pulmonary embolus in the main, lobar, or pro ximal segmental pulmonary arteries. Evaluation of the peripheral branches is significantly degraded by motion artifact. 2. Mild multifocal patchy groundglass consolidation is above is new from 09/07 and typical for an infectious/inflammatory pneumonitis. Clinical correlation will be required. 3. Hepatic steatosis. 4. Coronary artery calcifications. 5. Additional findings as above. ACT 112: Negative or not required by law. Electronically signed by: Jaydon Wallace M.D. 09/15/2022 8:[address] 09/16/22 21:[address] DOSE: 687.98 mGy.cm HISTORY: Headache. Trauma. TECHNIQUE: Multiaxial CT images of the head were performed without the use of intravenous contrast. Automated exposure control was utilized for this study. A dose lowering technique was utilized adhering to the principles of ALARA. Comparison: Head CT 09/14/2022. Findings: Age-indeterminate nondisplaced nasal bone fractures. Mild mucosal thickening within the ethmoid air cells. The mastoid air cells are clear. Mild posterior scalp swelling again noted. The calvarium and skull base are intact. The ventricles and sulci are within normal limits. There is no mass, hematoma, midline shift, or acute infarct. Impression: 1. No acute intracranial abnormality. 2. Mild posterior scalp swelling. 3. Age-indeterminate but likely old nondisplaced nasal bone fractures. ACT 112: Negative or not required by law. Electronically signed by: Vijay Wadsworth M.D. 09/17/2022 7:17 AM Chest X-Ray 09/17/22 23:08 SINGLE VIEW CHEST CLINICAL HISTORY: Dyspnea FINDINGS: 2 AP, portable, upright chest radiographs are compared to study dated 09/16/2022 and correlated with chest CT dated 09/14/2022. The examination is degraded by portable technique, apical lordotic positioning, and patient rotation. The heart is mildly enlarged. The pulmonary vasculature is noncongested. There is chronic elevation of the right hemidiaphragm. The lungs and pleural spaces are clear. No pneumothorax is seen. The bony thorax is grossly intact. IMPRESSION: 1. No active disease in the chest. 2. Foci of mild groundglass consolidations seen by CT are not apparent by x-ray. ACT 112: Negative or not required by law. Electronically signed by: Jaydon Wallace M.D. 09/18/2022 12:20 AM Liver Ultrasound 09/19/22 00:00 ULTRASOUND RIGHT UPPER QUADRANT ABDOMEN CLINICAL HISTORY: Elevated transaminases. COMPARISON STUDY: Abdominal CT dated 02/27/2021 TECHNIQUE: Real-time, grayscale, and color flow sonography of the right upper quadrant of the abdomen was performed. Images are reviewed in the transverse and longitudinal planes. FINDINGS: Liver: The liver is enlarged and demonstrates heterogeneously increased echotexture indicating moderate to severe steatosis. Note that this degrades acoustic penetration of the liver. Fatty sparing seen adjacent to the gallbladder fossa. There is no intrahepatic biliary ductal dilatation. The main portal vein is patent. Gallbladder: The gallbladder is normal in appearance. No gallstones are identified. There is no gallbladder wall thickening or pericholecystic fluid. A sonographic Romero's sign is reportedly absent. The common bile duct measures up to 0.5 cm in diameter. Pancreas: Not well visualized due to overlying bowel gas. Right kidney: Survey images of the right kidney demonstrate normal size and echotexture. There is no hydronephrosis. Ascites: None. IMPRESSION: 1. Hepatomegaly noting moderate to severe steatosis. 2. No gallstones are seen. 3. Nonvisualization of the pancreas. ACT 112: Negative or not required by law. Electronically signed by: Jaydon Wallace M.D. 09/19/2022 10:38 AM Hospital Course (1) Tussive syncope: Present on admission after syncopal episode due to severe cough CT head showed no acute intracranial abnormality or calvarial fracture. Small posterior scalp contusions. No findings to suggest an acute cardiac event on initial evaluation No focal deficit on exam Continue monitor Influenza Recent hospitalization for RSV, now tested positive for influenza Continue Tamiflu continue oxygen supplement, guaifenesin/codeine continue incentive spirometry and flutter valve Nocturnal pulse oximetry showed desaturation greater than 30 minutes clinically improves Diabetes type 2 Most recent hemoglobin A1c 8.8 ( 2021) resumed metformin and Trulicity on discharge Lantus and insulin sliding scale during hospital course Monitor BS Nocturnal hypoxia Chronic hypercapnic respiratory failure Likely from underlying DAMION/OHS Patient needs BiPAP on discharge to treat chronic hypercapnic and schedule outpatient study to determine severity of overlap to effectively manage that component Pulmonology on board recommended to continue with BiPAP setting of 31/07 Would recommend polysomnography to be done as soon as possible so that he can get a CPAP/BiPAP machine at home. Nocturnal pulse oximetry showed desaturation greater than 30 minutes Clinically improved significantly Transaminitis LFT trending down Liver ultrasound showed Hepatomegaly noting moderate to severe steatosis. Will need to arrange outpatient follow-up with GI Hypomagnesemia Mg 1.9 today Stable Tobacco abuse Counseling on smoking cessation Currently on nicotine patch Hypertension Continue losartan 50 mg daily Continue monitor BP GI prophylaxis PPI twice daily DVT prophylaxis Lovenox CODE STATUS full code Disposition Waiting for BiPAP machine before discharge to home Total Time Total Time Spent Total Time Spent (In Minutes): 35 minutes Discharge Plan Discharge Items Patient Disposition: Home - Self-Care Reason For Visit: SOB, SYNCOPE Discharge Diagnosis: Tussive syncope Influenza Diabetes type 2 Nocturnal hypoxia Chronic hypercapnic respiratory failure Transaminitis Hypomagnesemia Tobacco abuse Hypertension Activity: Resume your previous activity Non-emergency contact: Primary Care Provider Call non-emergency contact if: you have any medication questions Follow-up/Referrals: Velasquez Valencia MD [Primary Care Provider] - 09/28/22 9:40 am (Date & Time 09/28/2022 9:40 AM Provider Velasquez Valencia MD Department [facility] ) Diet: Heart Healthy Addtl Attending Provider Instructions: Follow up with your primary care provider 09/28/2022 @9:40 AM Velasquez Valencia MD Department [facility] Follow up with gastroenterology for outpatient work up for the abnormal liver enzymes Continue to use Bipap at night and when taking a nap your provider need to refer you for outpatient polysomnography (sleep study) for CPAP/BiPAP machine at home. Counseling on smoking cessation Counseling on weight loss, diet and exercise Continue monitor your blood pressure and bring your blood pressure log to your provider at your next follow up appointment Check liver enzymes in 1 to 2 weeks to monitor Liver function Pending Studies at Discharge: No Stand-Alone Forms: My [facility], Smoking Cessation Medications and DC Order Prescriptions: New metoprolol succinate 25 mg Tablet Extended Release 24 Hr 25 mg PO QPM Qty: 30 0RF Continued insulin aspart U-100 [Novolog Flexpen U-100 Insulin] 100 unit/mL (3 mL) insulin pen 12 unit subcut TIDM dicyclomine 10 mg capsule 10 mg PO QID PRN (Reason: Diarrhea) famotidine 20 mg tablet 20 mg PO HS pantoprazole 40 mg tablet,delayed release (DR/EC) 40 mg PO BID docusate sodium [Col-Rite] 100 mg capsule 100 mg PO BID PRN (Reason: Constipation) Advil Dual Action 125-250 mg Tablet 3 tab PO BID losartan 50 mg tablet 50 mg PO QAM metformin 500 mg tablet 1,000 mg PO BID Trulicity 4.5 mg/0.5 mL pen injector 4.5 mg SUBCUT FR cyclobenzaprine 10 mg tablet 10 mg PO HS PRN (Reason: Muscle Spasm) gabapentin 100 mg capsule 200 mg PO HS gabapentin 100 mg capsule 100 mg PO QAM metoclopramide HCl 10 mg tablet 10 mg PO TIDM insulin glargine [Lantus Solostar U-100 Insulin] 100 unit/mL (3 mL) insulin pen 22 unit SUBCUT QAM insulin glargine [Lantus Solostar U-100 Insulin] 100 unit/mL (3 mL) insulin pen 27 unit SUBCUT HS metoprolol succinate 50 mg Tablet Extended Release 24 Hr 50 mg PO QAM Qty: 30 0RF Saline Mist 0.65 % Aerosol,[place] 2 spray NA Q4H PRN (Reason: nasal congestion) Qty: 44 0RF benzonatate 200 mg capsule 200 mg PO TID PRN (Reason: cough) Qty: 30 0RF Discharge Orders: Discharge Order (Routine); Ordered 09/22/22 Ordered By: Sepideh Yeung Admission Data Admit Date/Time: 09/14/22 20:49 Attending Provider: Sepideh Yeung Admit Provider: Hernan Busby Primary Care Provider: Velasquez Valencia Other Providers: Hernan Busby ; Prasanth Correa ; Eugenio Salvador ; Avery Gonzales ; [place] ; [place] ; Colt Mendez ; Diane Grove ; Chandni Wayne ; Carlota Acuna ; Brian Alfaro ; Jaydon Lopez ; Gerard Andrews ; Richard Torres ; Grant Eckert ; Tracy Pope ; Ryan Gilbert Other Interventions: Discharge Summary Assessment (RN) Last Done: 09/22/22 16:12
== END 2022-09-22 17:32 | disposition home or self-care (01) | DRG 194 ==
LOC: ED 13:12 → 2S 20:49 → SUATTDRO 20:49 → 2S 22:18

== ENCOUNTER 2023-02-10 11:05 | Observation (INO) ==
[2023-02-10] MEDS ORDERED: SODIUM CHLORIDE 0.9% 1000ML 1,000 ML IV ONE (11:26)
[2023-02-10] MEDS ORDERED: ONDANSETRON INJ 2 MG/ML 2 ML VIAL IV STA (11:26)
[2023-02-10] MEDS ORDERED: MoRPHine SULFATE 4 MG/ML 1 ML CARP\\VIAL IV STA ×2 (11:26→13:09)
--- NOTE | 2023-02-10 11:28 | Emergency Department Note ---
Impression & Plan Acute appendicitis ADMIT ED Provider Note HPI: The patient is a 47-year-old gentleman with history of type 2 diabetes, irritable bowel syndrome, hypertension, presents emergency department with a chief complaint of right-sided abdominal discomfort. Patient states he has had this pain now for several days, seen here in the ED 2 days ago and ultimately discharged home. On arrival here to the ED the patient is tachycardic, states he has pain radiating from his right abdomen to his right lower back. Patient states he is nauseated and he had a large episode of emesis earlier this morning. On arrival here to the ED the patient is uncomfortable appearing, he is tachycardic, he is saturating well on room air and he is afebrile on arrival. ROS: - Per HPI *Outpatient medications and allergy history reviewed. *Pertinent external medical records reviewed. PE: General: Alert HEENT: Normocephalic, trachea midline Eyes: Extraocular eye movement is intact, no scleral erythema Pulmonary: Clear to auscultation bilaterally, no wheezing Cardio: Tachycardic rate with regular rhythm GI: Abdomen is soft to palpation, there is tenderness in the right side of the abdomen to palpation without guarding or rigidity : No suprapubic tenderness MSK: No evidence of trauma or malformation of the extremities, no edema Skin: No evidence of rash Neuro: Alert, no focal deficits Psychiatric: Cooperative cardiac monitor technician: (As interpreted by myself): - An order was placed for continuous cardiac monitoring - Patient was noted to be in sinus tachycardia with a rate of 114 Interventions provided in ED: -IV morphine, IV Zofran, IV fluid bolus Differential Diagnosis: Kidney stone, acute appendicitis, acute cholecystitis, bowel obstruction, acute diverticulitis flare, amongst other potential pathologies. Medical Decision Making: Patient presented to the emergency department with abdominal pain and episode of vomiting earlier this morning. On arrival here to the ED the patient was uncomfortable appearing, tachycardic, saturating well on room air otherwise. IV was established and lab work obtained, CT imaging of the abdomen pelvis was ordered without contrast over concern for kidney stone. Lab work shows mild leukocytosis of 11.29, hemoglobin is stable, platelet count is within normal limits, CMP does not show any critical findings, hyperglycemia without DKA, AST mildly elevated as is ALT. Bilirubin within normal limits. Troponin negative. Urinalysis shows evidence of glucose and ketones, nitrite negative and leukocyte Estrace negative. CT imaging of the abdomen pelvis without contrast does not show any evidence of kidney stone, questionable appendicitis but diagnostic capability is limited secondary to lack of IV contrast. CT imaging of the abdomen pelvis was then ordered with IV contrast for further evaluation of possible appendicitis, interpreting radiologist notes a mildly thickened appendiceal wall with mild dilation. On reassessment patient continues to complain of pain, states his pain is somewhat localized over the right lower quadrant now. Given this, I did discuss the case with the on-call general surgeon, Dr. Winston, who did evaluate the patient at the bedside. Decision was made to take the patient to the operating room for definitive management over suspicion for acute appendicitis. Patient was transferred to the OR in stable condition for further care. Consultants: General surgery, Dr. Winston Diagnosis: 1. Acute appendicitis 2. Abdominal pain, acute 3. Nausea and vomiting, acute 4. Leukocytosis 5. Hyperglycemia in patient with known diabetes, without DKA Disposition: Admission to general surgery Colt Hughes DO Emergency Medicine Past Med/Surg History Medical History Acquired deviated nasal septum Cardiac murmur A CHILD Erectile dysfunction Esophagitis GERD (gastroesophageal reflux disease) History of DVT (deep vein thrombosis) History of ventricular tachycardia "nonsustained" Hx of pancreatitis resolved IBS (irritable bowel syndrome) Intellectual disability MRSA (methicillin resistant Staphylococcus aureus) carrier over 2 yrs ago Obesity Osteoarthritis Tussive syncope Surgical History H/O foot surgery LEFT-2019 History of arthroscopy LEFT KNEE-1987 History of colonoscopy History of esophagogastroduodenoscopy (EGD) History of nasal septoplasty 09/25/21-Dr. Garcia History of reduction of nasal fracture 09/25/21-Dr. Garcia History of shoulder surgery right-2019 History of tonsillectomy and adenoidectomy 1979 History of tooth extraction Status post incision and drainage LLE Family History Brother Family history of diabetes mellitus Environmental allergies Asthma Mother Family history of diabetes mellitus Hypertension Environmental allergies Father Family history of diabetes mellitus Hypertension Heart disease Grandfather (Paternal) Lung cancer smoker Aunt Bleeding disorder Other No family history of adverse response to anesthesia Social History Smoking Status: Current every day smoker Tobacco Type: Cigarettes Age Started Using Tobacco: 14; Cigarettes Per Day: 30-40; Second Hand Exposure: Yes; Hx Alcohol Use: Yes Alcohol type: beer Alcohol Intake Frequency: Monthly or Less Alcohol Intake Frequency Comment: seldom, a couple times per year if that per pt Hx Substance Use: No Preferred Language: Dutch Communication Ability: Effective Screenplay Writer Required: No Beliefs That Will Affect Care: None marital status: / marital status details: single at this time Current Living Situation: Significant Other Current Living Situation Comment: house current occupational status: employed 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 other: girlfriend able to assist with dressing changes and care as needed Feels Safe at Home: Yes during the past year weight has: remained stable Assistive Devices: None Allergies Allergies Allergy/AdvReac Type Severity Reaction Status Date / Time Cephalosporins Allergy Unknown Unknown Verified 10/23/22 18:14 NSAIDS (Non-Steroidal AdvReac Intermediate gastroparesis, Verified 10/23/22 18:14 Anti-Inflamma kidney problems Home Meds Home Medications Medication Instructions Recorded Confirmed insulin aspart U-100 100 unit/mL 12 unit subcut TIDM 06/09/19 02/08/23 (3 mL) subcutaneous pen (Novolog FlexPen U-100 Insulin aspart) dicyclomine 10 mg capsule 10 mg PO QID PRN Diarrhea 05/01/20 02/08/23 famotidine 20 mg tablet 20 mg PO HS 07/13/20 02/08/23 docusate sodium 100 mg capsule 100 mg PO BID PRN Constipation 02/25/21 02/08/23 (Col-Rite) pantoprazole 40 mg tablet,delayed 40 mg PO BID 02/25/21 02/08/23 release losartan 50 mg tablet 50 mg PO QAM 08/26/21 02/08/23 metformin 500 mg tablet 1,000 mg PO BID 08/26/21 02/08/23 cyclobenzaprine 10 mg tablet 10 mg PO HS PRN Muscle Spasm 09/06/22 02/08/23 gabapentin 100 mg capsule 100 mg PO QAM 09/06/22 02/08/23 gabapentin 100 mg capsule 200 mg PO HS 09/06/22 02/08/23 insulin glargine 100 unit/mL (3 25 unit subcut QAM 09/06/22 02/08/23 mL) subcutaneous pen (Lantus Solostar U-100 Insulin) insulin glargine 100 unit/mL (3 34 unit subcut HS 09/06/22 02/08/23 mL) subcutaneous pen (Lantus Solostar U-100 Insulin) metoclopramide HCl 10 mg tablet 10 mg PO TIDM 09/06/22 02/08/23 budesonide-formoterol HFA 80 2 puff inhalation AMHS 02/08/23 02/08/23 mcg-4.5 mcg/actuation aerosol inhaler (Symbicort) metoprolol succinate 50 mg 75 mg PO DAILY 02/08/23 02/08/23 tablet,extended release 24 hr semaglutide (weight loss) 1.7 1.7 mg subcut WK 02/08/23 02/08/23 mg/0.75 mL subcutaneous pen injector (Mary Beth) Previous Rx's Medication Instructions Recorded benzonatate 200 mg capsule 200 mg PO TID PRN cough #30 caps 09/07/22 promethazine 25 mg tablet 25 mg PO Q6H PRN nausea and 02/08/23 vomiting #14 tabs Results & Data (ED) Vital Signs Vital Signs - 24 hr 02/10/23 11:17 02/10/23 11:07 02/10/23 11:12 Temperature 36.9 C Temperature Source Oral Pulse Rate 122 H 123 H 122 H Pulse Rhythm Regular Pulse Strength Normal Respiratory Rate 22 19 Respiratory Effort / Characteristics Non-Labored Respiratory Depth Normal Respiratory Pattern Regular Blood Pressure 172/87 H Blood Pressure Mean 115 Blood Pressure Position Sitting Pulse Oximetry 97 98 Oxygen Delivery Method Room Air Sepsis Recent Fever Within 48 Hours No Sepsis New/Unexplained Change in Mental Status No Sepsis Action Taken by Nursing Physician Notified 02/10/23 11:13 02/10/23 11:13 02/10/23 12:05 Temperature Temperature Source Pulse Rate 123 H Pulse Rhythm Pulse Strength Respiratory Rate 19 Respiratory Effort / Characteristics Respiratory Depth Respiratory Pattern Blood Pressure 172/87 H Blood Pressure Mean 115 Blood Pressure Position Pulse Oximetry 97 96 Oxygen Delivery Method Sepsis Recent Fever Within 48 Hours Sepsis New/Unexplained Change in Mental Status Sepsis Action Taken by Nursing 02/10/23 12:07 02/10/23 12:07 02/10/23 13:00 Temperature Temperature Source Pulse Rate 124 H 127 H Pulse Rhythm Pulse Strength Respiratory Rate 23 21 Respiratory Effort / Characteristics Respiratory Depth Respiratory Pattern Blood Pressure 183/121 H Blood Pressure Mean 141 Blood Pressure Position Pulse Oximetry 97 96 Oxygen Delivery Method Sepsis Recent Fever Within 48 Hours Sepsis New/Unexplained Change in Mental Status Sepsis Action Taken by Nursing Laboratory Data 02/10/23 11:16 02/10/23 11:16 Lab Results 02/10/23 02/10/23 02/10/23 Range/Units 11:16 11:16 13:15 WBC 11.29 H (4.8-10.8) K/ul RBC 5.03 (4.70-6.10) M/uL Hgb 14.0 (14.0-18.0) g/dl Hct 40.8 L (42.0-52.0) % MCV 81.1 (80.0-100.0) fL MCH 27.8 (25.0-34.0) pg MCHC 34.3 (32.0-36.0) g/dL RDW Std Deviation 38.7 (36.4-46.3) fL RDW Coeff of Abiodun 13.2 (11.5-14.5) % Plt Count 271 (130-400) K/uL MPV 9.2 L (9.4-12.4) fL Immature Gran % (Auto) 0.8 % Neut % (Auto) 89.5 % Lymph % (Auto) 6.3 % Mcnairy % (Auto) 2.9 % Eos % (Auto) 0.1 % Baso % (Auto) 0.4 % Neut # (Auto) 10.10 H (1.40-6.50) K/uL Lymph # (Auto) 0.71 L (1.2-3.4) K/uL Mcnairy # (Auto) 0.33 (0.11-0.59) K/uL Eos # (Auto) 0.01 (0-0.50) K/uL Baso # (Auto) 0.05 (0-0.2) K/uL Immature Gran # (Auto) 0.09 (0.01-0.20) K/uL Sodium 137 (136-145) mmol/L Potassium 3.9 (3.5-5.1) mmol/L Chloride 99 (98-107) mmol/L Carbon Dioxide 24 (21-32) mmol/L Anion Gap 14 H (3-11) BUN 19 (6-23) mg/dl Creatinine 0.97 (0.6-1.4) mg/dl Est Cr Clr Drug Dosing 138.9 ml/min Est GFR ( Amer) 105.8 ml/min Est GFR (Non-Af Amer) 91.3 ml/min BUN/Creatinine Ratio 19.6 (10-20) Glucose 217 H (70-99(Fasting)) mg/dl Calcium 9.7 (8.6-10.3) mg/dl Total Bilirubin 0.8 (0.2-1.0) mg/dl AST 53 H (13-39) U/L ALT 102 H (7-52) U/L Alkaline Phosphatase 75 (34-104) U/L Troponin I High Sens 8.7 (0-20) pg/ml Total Protein 8.1 (6.0-8.3) gm/dl Albumin 4.7 (3.4-5.0) gm/dl Globulin 3.4 (2.5-4.0) gm/dl Albumin/Globulin Ratio 1.4 (0.9-2) Lipase 17 (11-82) U/L Urine Color Dark Yellow Urine Appearance Cloudy A (Clear) Urine pH 5.0 (4.5-7.5) Ur Specific [place] 1.040 H (1.000-1.030) Urine Protein 4+ H (Negative) Urine Glucose (UA) 3+ H (Negative) Urine Ketones 3+ H (Negative) Urine Blood 2+ H (Negative) Urine Nitrite Negative (Negative) Urine Bilirubin 1+ H (Negative) Urine Urobilinogen Negative (Negative) Ur Leukocyte Esterase Negative (Negative) Urine WBC (Auto) 1-5 (0-5) /hpf Urine RBC (Auto) 5-10 H (0-4) /hpf U Hyaline Cast (Auto) >30 H (0-5) /lpf U Epithel Cells (Auto) >30 H (0-5) /lpf Urine Bacteria (Auto) 1+ H (Negative) Granular Casts 5-10 H (0) /lpf Urine Mucus Present A (None Prsent) Administered Medications Discontinued Medications Sodium Chloride (Nss 1000ml) 1,000 mls @ 999 mls/hr IV .Q1H1M ONE Stop: 02/10/23 12:26 Last Infusion: 02/10/23 13:40 Dose: 0 mls/hr Documented By: Admin: 02/10/23 11:46 Dose: 999 mls/hr Documented By: SANDRA Ioversol (Optiray 350 100ml) 90 ml IV ONCE ONE Stop: 02/10/23 13:43 Last Admin: 02/10/23 13:32 Dose: 90 ml Documented By: Morphine Sulfate (Morphine Sulfate 4 Mg/Ml 1 Ml Carp\\Vial) 4 mg IV NOW STA Stop: 02/10/23 11:27 Last Admin: 02/10/23 11:47 Dose: 4 mg Documented By: HG Morphine Sulfate (Morphine Sulfate 4 Mg/Ml 1 Ml Carp\\Vial) 4 mg IV NOW STA Stop: 02/10/23 13:10 Last Admin: 02/10/23 13:19 Dose: 4 mg Documented By: SADNRA Ondansetron HCl (Ondansetron Inj 2 Mg/Ml 2 Ml Vial) 4 mg IV NOW STA Stop: 02/10/23 11:27 Last Admin: 02/10/23 11:46 Dose: 4 mg Documented By: SANDRA Imaging Data Radiologist's Impression: Abdomen/Pelvis CT 02/10/23 11:26 CT OF THE ABDOMEN AND PELVIS WITHOUT CONTRAST CLINICAL HISTORY: Right flank pain. COMPARISON STUDY: CT of the abdomen and pelvis February 27, 2021 and right upper quadrant ultrasound September 19, 2022. TECHNIQUE: Axial images of the abdomen and pelvis were obtained without IV contrast. Images were reviewed in the axial, sagittal, and coronal planes. Automated exposure control was utilized for the study. A dose lowering technique was utilized adhering to the principles of ALARA. FINDINGS: Lung bases are unremarkable. No pneumatosis, free air or portal venous gas is present. No renal, ureteral or bladder calculi are present. There is no hydronephrosis or hydroureter. Evaluation of the remainder of the abdomen and pelvis is suboptimal on this unenhanced exam. Hepatic steatosis. Spleen, adrenal glands and pancreas are unremarkable. Is no biliary or pancreatic ductal dilatation. There is no evidence for a bowel obstruction. The appendix is mildly dilated, measuring 1 cm in caliber. The wall is slightly thickened. However, there is no adjacent inflammation. Appendiceal dilatation has developed since prior CT. There is no evidence for a bowel obstruction. No definite bowel wall thickening. There is no lymphadenopathy. No ascites. IMPRESSION: 1. No urinary calculi or hydronephrosis. 2. Mildly dilated appendix. However, no periappendiceal inflammation. These findings do not strongly suggest acute appendicitis however correlation with clinical evidence for acute appendicitis is recommended. 3. No bowel obstruction. 4. Hepatic steatosis. ACT 112: Negative or not required by law. Electronically signed by: Serge Ghotra M.D. 02/10/2023 12:49 PM Gallbladder Ultrasound 02/10/23 13:01 US gallbladder CLINICAL HISTORY: Right-sided abdominal pain. COMPARISON STUDY: Right upper quadrant ultrasound September 19, [address] of the abdomen and pelvis performed earlier today. FINDINGS: Hepatic echogenicity is increased. No hepatic lesions are identified although sensitivity is diminished given suboptimal penetration. The gallbladder is normal. There are no gallstones. No sonographic Romero sign was elicited. There is no biliary ductal dilatation. Pancreas is obscured. There is no right hydronephrosis. IMPRESSION: 1. No gallstones or biliary ductal dilatation. 2. Hepatic steatosis. 3. Exam compromised by suboptimal penetration. Obscured pancreas. ACT 112: Negative or not required by law. Electronically signed by: Serge Ghotra M.D. 02/10/2023 2:24 PM Abdomen/Pelvis CT 02/10/23 13:09 CT OF THE ABDOMEN AND PELVIS WITH CONTRAST CLINICAL HISTORY: Right flank pain. Abnormal noncontrast CT. Evaluate appendix. COMPARISON STUDY: CT of the abdomen and pelvis performed earlier today and December 28, 2020. TECHNIQUE: Following IV administration of 90 mL of Optiray, axial images of the abdomen and pelvis were obtained from the lung bases to the proximal femurs. Images were reviewed in the axial, sagittal, and coronal planes. IV contrast was administered without complication. Automated exposure control was utilized for the study. A dose lowering technique was utilized adhering to the principles of ALARA. CT DOSE: 1555.94 mGy.cm FINDINGS: No pneumatosis, free air or portal venous gas is present. There is hepatic steatosis. There are no hepatic lesions. There is no biliary or pancreatic ductal dilatation. Spleen, adrenal glands, kidneys and pancreas are unremarkable. There is no hydronephrosis. There is no evidence for a bowel obstruction. The appendix is mildly dilated with thickened wall. The appendix measures 1 cm in caliber. There is no periappendiceal infiltration. A low- attenuation density within the lumen of the appendiceal tip is noted. There is no free air. There is no abscess. Appendiceal dilatation has developed since prior CT of February 27, 2021. There is no lymphadenopathy. Major vasculature is patent. No fluid collection is present. IMPRESSION: 1. Mildly dilated appendix with thickened wall. The findings are equivocal for acute appendicitis however no periappendiceal infiltration to strongly suggest acute appendicitis. A small mucocele is also within the differential. 2. Hepatic steatosis. 3. No bowel obstruction. No bowel wall thickening. ACT 112: Negative or not required by law. Electronically signed by: Serge Ghotra M.D. 02/10/2023 1:54 PM Discharge Plan Visit Data Chief Complaint: Abdominal Pain ED Provider: Colt Hughes Discharge Problem: Acute appendicitis Discharge Instructions Interventions: ED Discharge Assessment Last Done: 02/10/23 15:06 Forms Stand Alone Forms: [facility] [employer] Prescriptions Prescriptions: No Action insulin aspart U-100 [Novolog FlexPen U-100 Insulin] 100 unit/mL (3 mL) insulin pen 12 unit subcut TIDM dicyclomine 10 mg capsule 10 mg PO QID PRN (Reason: Diarrhea) famotidine 20 mg tablet 20 mg PO HS pantoprazole 40 mg tablet,delayed release (DR/EC) 40 mg PO BID docusate sodium [Col-Rite] 100 mg capsule 100 mg PO BID PRN (Reason: Constipation) losartan 50 mg tablet 50 mg PO QAM metformin 500 mg tablet 1,000 mg PO BID cyclobenzaprine 10 mg tablet 10 mg PO HS PRN (Reason: Muscle Spasm) gabapentin 100 mg capsule 200 mg PO HS gabapentin 100 mg capsule 100 mg PO QAM metoclopramide HCl 10 mg tablet 10 mg PO TIDM insulin glargine [Lantus Solostar U-100 Insulin] 100 unit/mL (3 mL) insulin pen 25 unit SUBCUT QAM insulin glargine [Lantus Solostar U-100 Insulin] 100 unit/mL (3 mL) insulin pen 34 unit SUBCUT HS benzonatate 200 mg capsule 200 mg PO TID PRN (Reason: cough) Qty: 30 0RF budesonide-formoterol [Symbicort] 80-4.5 mcg/actuation HFA aerosol inhaler 2 puff INHALATION [facility]HS Wegovy 1.7 mg/0.75 mL pen injector 1.7 mg SUBCUT WK metoprolol succinate 50 mg tablet extended release 24 hr 75 mg PO DAILY promethazine 25 mg tablet 25 mg PO Q6H PRN (Reason: nausea and vomiting) Qty: 14 0RF Referrals Referrals: Velasquez Valencia MD [Primary Care Provider] -
[2023-02-10 11:41] LABS: Basophils # (auto) 0.05 K/uL (0-0.2); Basophils % (auto) 0.4 %; Eosinophils # (auto) 0.01 K/uL (0-0.50); Eosinophils % (auto) 0.1 %; Hematocrit (blood only) 40.8 % (42.0-52.0); Immature Granulocytes # (auto) 0.09 K/uL (0.01-0.20); Immature Granulocytes % (auto) 0.8 %; Lymphocytes # (auto) 0.71 K/uL (1.2-3.4); Lymphocytes % (auto) 6.3 %; Mean Corpuscular Hemoglobin 27.8 pg (25.0-34.0); Mean Corpuscular Hgb Conc 34.3 g/dL (32.0-36.0); Mean Corpuscular Volume 81.1 fL (80.0-100.0); Mean Platelet Volume 9.2 fL (9.4-12.4); Monocytes # (auto) 0.33 K/uL (0.11-0.59); Monocytes % (auto) 2.9 %; Neutrophils % (auto) 89.5 %; Platelet Count 271 K/uL (130-400); RDW Coefficient of Variation 13.2 % (11.5-14.5); RDW Standard Deviation 38.7 fL (36.4-46.3); Red Blood Count 5.03 M/uL (4.70-6.10); White Blood Count 11.29 K/ul (4.8-10.8)
[2023-02-10 12:03] LABS: Albumin Globulin Ratio 1.4 (0.9-2); Albumin Level 4.7 gm/dl (3.4-5.0); BUN Creatinine Ratio 19.6 (10-20); Bilirubin,Total 0.8 mg/dl (0.2-1.0); Calcium 9.7 mg/dl (8.6-10.3); Creatinine Clr Calc Pharmacy 138.9 ml/min; Est GFR (African American) 105.8 ml/min; Est GFR (Non-African American) 91.3 ml/min; Globulin 3.4 gm/dl (2.5-4.0); Potassium 3.9 mmol/L (3.5-5.1); Total Protein 8.1 gm/dl (6.0-8.3)
[2023-02-10 12:06] LABS: Troponin I High Sensitivity 8.7 pg/ml (0-20)
--- NOTE | 2023-02-10 12:51 | CT Scan Report ---
CT OF THE ABDOMEN AND PELVIS WITHOUT CONTRAST CLINICAL HISTORY: Right flank pain. COMPARISON STUDY: CT of the abdomen and pelvis February 27, 2021 and right upper quadrant ultrasound Dece mber 2021. TECHNIQUE: Axial images of the abdomen and pelvis were obtained without IV contrast. Images were revi ewed in the axial, sagittal, and coronal planes. Automated exposure control was utilized for the perry dy. A dose lowering technique was utilized adhering to the principles of ALARA. FINDINGS: Lung bases are unremarkable. No pneumatosis, free air or portal venous gas is present. No r enal, ureteral or bladder calculi are present. There is no hydronephrosis or hydroureter. Evaluation of the remainder of the abdomen and pelvis is suboptimal on this unenhanced exam. Hepatic steatosis. Spleen, adrenal glands and pancreas are unremarkable. Is no biliary or pancreatic ductal dilatation. There is no evidence for a bowel obstruction. The appendix is mildly dilated, measuring 1 cm in calib er. The wall is slightly thickened. However, there is no adjacent inflammation. Appendiceal dilatatio n has developed since prior CT. There is no evidence for a bowel obstruction. No definite bowel wall thickening. There is no lymphadenopathy. No ascites. IMPRESSION: 1. No urinary calculi or hydronephrosis. 2. Mildly dilated appendix. However, no periappendiceal inflammation. These findings do not strongly suggest acute appendicitis however correlation with clinical evidence for acute appendicitis is recom mended. 3. No bowel obstruction. 4. Hepatic steatosis. ACT 112: Negative or not required by law. Electronically signed by: Serge Ghotra M.D. 02/10/2023 12:49 PM
[2023-02-10 13:29] LABS: Appearance Urine Cloudy (Clear); Blood Urine 2+ (Negative); Color Urine Dark Yellow; Epithelial Cell Urine Auto >30 /lpf (0-5); Glucose Urine UA 3+ (Negative); Ketones Urine 3+ (Negative); Leukocyte Esterase Urine Negative (Negative); Nitrite Urine Negative (Negative); Protein Urine 4+ (Negative); Urobilinogen Urine Negative (Negative)
[2023-02-10 13:30] LABS: Bilirubin Urine 1+ (Negative)
[2023-02-10] MEDS ORDERED: OPTIRAY 350 100ml IV ONE (13:42)
[2023-02-10 13:55] LABS: Cast Urine Automated >30 /lpf (0-5)
--- NOTE | 2023-02-10 13:55 | CT Scan Report ---
CT OF THE ABDOMEN AND PELVIS WITH CONTRAST CLINICAL HISTORY: Right flank pain. Abnormal noncontrast CT. Evaluate appendix. COMPARISON STUDY: CT of the abdomen and pelvis performed earlier today and December 28, 2020. TECHNIQUE: Following IV administration of 90 mL of Optiray, axial images of the abdomen and pelvis we re obtained from the lung bases to the proximal femurs. Images were reviewed in the axial, sagittal, and coronal planes. IV contrast was administered without complication. Automated exposure control wa s utilized for the study. A dose lowering technique was utilized adhering to the principles of ALARA . CT DOSE: 1555.94 mGy.cm FINDINGS: No pneumatosis, free air or portal venous gas is present. There is hepatic steatosis. There are no hepatic lesions. There is no biliary or pancreatic ductal dilatation. Spleen, adrenal glands, kidneys and pancreas are unremarkable. There is no hydronephrosis. There is no evidence for a bowel obstruction. The appendix is mildly dilated with thickened wall. The appendix measures 1 cm in calibe r. There is no periappendiceal infiltration. A low-attenuation density within the lumen of the append iceal tip is noted. There is no free air. There is no abscess. Appendiceal dilatation has developed s any prior CT of February 27, 2021. There is no lymphadenopathy. Major vasculature is patent. No fluid col lection is present. IMPRESSION: 1. Mildly dilated appendix with thickened wall. The findings are equivocal for acute appendicitis how ever no periappendiceal infiltration to strongly suggest acute appendicitis. A small mucocele is also within the differential. 2. Hepatic steatosis. 3. No bowel obstruction. No bowel wall thickening. ACT 112: Negative or not required by law. Electronically signed by: Serge Ghotra M.D. 02/10/2023 1:54 PM
[2023-02-10 13:56] LABS: Bacteria Urine Automated 1+ (Negative); Mucus Urine Present (None Prsent)
--- NOTE | 2023-02-10 14:25 | Ultrasound Report ---
US gallbladder CLINICAL HISTORY: Right-sided abdominal pain. COMPARISON STUDY: Right upper quadrant ultrasound September 19, [address] of the abdomen and pelvis performed earlier today. FINDINGS: Hepatic echogenicity is increased. No hepatic lesions are identified although sensitivity i s diminished given suboptimal penetration. The gallbladder is normal. There are no gallstones. No son ographic Romero sign was elicited. There is no biliary ductal dilatation. Pancreas is obscured. There is no right hydronephrosis. IMPRESSION: 1. No gallstones or biliary ductal dilatation. 2. Hepatic steatosis. 3. Exam compromised by suboptimal penetration. Obscured pancreas. ACT 112: Negative or not required by law. Electronically signed by: Serge Ghotra M.D. 02/10/2023 2:24 PM
--- NOTE | 2023-02-10 15:04 | Surgery Consultation ---
Date of Consultation February 10, 2023 Assessment & Plan (1) Acute appendicitis: 47-year-old gentleman presents with acute appendicitis. I discussed the risks and benefits of laparoscopic appendectomy. All his questions were answered, he is agreeable to proceed. Consent has been obtained. We will take him to the operating room at the earliest convenience. History of Present Illness Reason for Consultation: Acute appendicitis Requesting Physician: Colt Helton MD Attending Physician: Colt Helton MD History of Present Illness 47-year-old gentleman presents with 2 to 3-day history of vague right lower quadrant abdominal pain. It worsened significantly this morning. He did have nausea and vomiting associated with it. He denies fevers and chills. He denies chest pain or shortness of breath. He denies changes in bowel habits. CT scan demonstrates early acute appendicitis. White blood cell count is 11. Allergies Allergy/AdvReac Type Severity Reaction Status Date / Time Cephalosporins Allergy Unknown Unknown Verified 10/23/22 18:14 NSAIDS (Non-Steroidal AdvReac Intermediate gastroparesis, Verified 10/23/22 18:14 Anti-Inflamma kidney problems Home Medications Medication Instructions Recorded Confirmed Type insulin aspart U-100 100 unit/mL 12 unit subcut TIDM 06/09/19 02/08/23 History (3 mL) subcutaneous pen (Novolog FlexPen U-100 Insulin aspart) dicyclomine 10 mg capsule 10 mg PO QID PRN Diarrhea 05/01/20 02/08/23 History famotidine 20 mg tablet 20 mg PO HS 07/13/20 02/08/23 History docusate sodium 100 mg capsule 100 mg PO BID PRN Constipation 02/25/21 02/08/23 History (Col-Rite) pantoprazole 40 mg tablet,delayed 40 mg PO BID 02/25/21 02/08/23 History release losartan 50 mg tablet 50 mg PO QAM 08/26/21 02/08/23 History metformin 500 mg tablet 1,000 mg PO BID 08/26/21 02/08/23 History cyclobenzaprine 10 mg tablet 10 mg PO HS PRN Muscle Spasm 09/06/22 02/08/23 History gabapentin 100 mg capsule 100 mg PO QAM 09/06/22 02/08/23 History gabapentin 100 mg capsule 200 mg PO HS 09/06/22 02/08/23 History insulin glargine 100 unit/mL (3 25 unit subcut QAM 09/06/22 02/08/23 History mL) subcutaneous pen (Lantus Solostar U-100 Insulin) insulin glargine 100 unit/mL (3 34 unit subcut HS 09/06/22 02/08/23 History mL) subcutaneous pen (Lantus Solostar U-100 Insulin) metoclopramide HCl 10 mg tablet 10 mg PO TIDM 09/06/22 02/08/23 History benzonatate 200 mg capsule 200 mg PO TID PRN cough #30 caps 09/07/22 02/08/23 Rx budesonide-formoterol HFA 80 2 puff inhalation AMHS 02/08/23 02/08/23 History mcg-4.5 mcg/actuation aerosol inhaler (Symbicort) metoprolol succinate 50 mg 75 mg PO DAILY 02/08/23 02/08/23 History tablet,extended release 24 hr promethazine 25 mg tablet 25 mg PO Q6H PRN nausea and 02/08/23 Rx vomiting #14 tabs semaglutide (weight loss) 1.7 1.7 mg subcut WK 02/08/23 02/08/23 History mg/0.75 mL subcutaneous pen injector (Wegovy) Patient History Medical History Acquired deviated nasal septum Cardiac murmur A CHILD Erectile dysfunction Esophagitis GERD (gastroesophageal reflux disease) History of DVT (deep vein thrombosis) History of ventricular tachycardia "nonsustained" Hx of pancreatitis resolved IBS (irritable bowel syndrome) Intellectual disability MRSA (methicillin resistant Staphylococcus aureus) carrier over 2 yrs ago Obesity Osteoarthritis Tussive syncope Surgical History H/O foot surgery LEFT-2018 History of arthroscopy LEFT KNEE-1987 History of colonoscopy History of esophagogastroduodenoscopy (EGD) History of nasal septoplasty 09/25/21-Dr. Garcia History of reduction of nasal fracture 09/25/21-Dr. Garcia History of shoulder surgery right-2019 History of tonsillectomy and adenoidectomy 1980 History of tooth extraction Status post incision and drainage LLE Family History Brother Family history of diabetes mellitus Environmental allergies Asthma Mother Family history of diabetes mellitus Hypertension Environmental allergies Father Family history of diabetes mellitus Hypertension Heart disease Grandfather (Paternal) Lung cancer smoker Aunt Bleeding disorder Other No family history of adverse response to anesthesia Social History Smoking Status: Current every day smoker Tobacco Type: Cigarettes Age Started Using Tobacco: 14; Cigarettes Per Day: 30-40; Second Hand Exposure: Yes; Hx Alcohol Use: Yes Alcohol type: beer Alcohol Intake Frequency: Monthly or Less Alcohol Intake Frequency Comment: seldom, a couple times per year if that per pt Hx Substance Use: No Preferred Language: Turkish Communication Ability: Effective Sales Support Administrator Required: No Beliefs That Will Affect Care: None marital status: / marital status details: single at this time Current Living Situation: Significant Other Current Living Situation Comment: house current occupational status: employed 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 other: girlfriend able to assist with dressing changes and care as needed Feels Safe at Home: Yes during the past year weight has: remained stable Assistive Devices: None Review of Systems Review of Systems: All systems reviewed & are unremarkable except as noted in HPI & below Physical Exam Constitutional: WD/WN, vitals as above Eyes: PERRL, conjunctivae normal, anicteric sclerae Neck: trachea midline, no thyromegaly Respiratory: normal respiratory effort; no respiratory distress and no labored breathing Cardiovascular: Rate/Rhythm: regular rhythm and + tachycardic Gastrointestinal (Abdomen): Inspection/Auscultation: abdomen normal to inspection; abdomen not distended Percussion/Palpation: + abdomen tender (Right lower quadrant) and abdomen soft; no guarding and abdomen not rigid Skin: no rashes, warm and dry Psychiatric: A+Ox3, euthymic affect Results & Data Vital Signs (Past 12 Hours) Vital Signs Temp Pulse Resp BP Pulse Ox O2 Del Method 02/10/23 13:00 127 H 21 96 02/10/23 12:07 183/121 H 02/10/23 12:07 124 H 23 97 02/10/23 12:05 96 02/10/23 11:13 123 H 19 97 02/10/23 11:13 172/87 H 02/10/23 11:12 122 H 19 98 02/10/23 11:07 36.9 C 123 H 22 172/87 H 97 Room Air 02/10/23 11:17 122 H Laboratory Results 02/10/23 02/10/23 02/10/23 Range/Units 13:15 11:16 11:16 WBC 11.29 H (4.8-10.8) K/ul RBC 5.03 (4.70-6.10) M/uL Hgb 14.0 (14.0-18.0) g/dl Hct 40.8 L (42.0-52.0) % MCV 81.1 (80.0-100.0) fL MCH 27.8 (25.0-34.0) pg MCHC 34.3 (32.0-36.0) g/dL RDW Std Deviation 38.7 (36.4-46.3) fL RDW Coeff of Abiodun 13.2 (11.5-14.5) % Plt Count 271 (130-400) K/uL MPV 9.2 L (9.4-12.4) fL Immature Gran % (Auto) 0.8 % Neut % (Auto) 89.5 % Lymph % (Auto) 6.3 % [place] % (Auto) 2.9 % Eos % (Auto) 0.1 % Baso % (Auto) 0.4 % Neut # (Auto) 10.10 H (1.40-6.50) K/uL Lymph # (Auto) 0.71 L (1.2-3.4) K/uL [place] # (Auto) 0.33 (0.11-0.59) K/uL Eos # (Auto) 0.01 (0-0.50) K/uL Baso # (Auto) 0.05 (0-0.2) K/uL Immature Gran # (Auto) 0.09 (0.01-0.20) K/uL Sodium 137 (136-145) mmol/L Potassium 3.9 (3.5-5.1) mmol/L Chloride 99 (98-107) mmol/L Carbon Dioxide 24 (21-32) mmol/L Anion Gap 14 H (3-11) BUN 19 (6-23) mg/dl Creatinine 0.97 (0.6-1.4) mg/dl Est Cr Clr Drug Dosing 138.9 ml/min Est GFR ( Amer) 105.8 ml/min Est GFR (Non-Af Amer) 91.3 ml/min BUN/Creatinine Ratio 19.6 (10-20) Glucose 217 H (70-99(Fasting)) mg/dl Calcium 9.7 (8.6-10.3) mg/dl Total Bilirubin 0.8 (0.2-1.0) mg/dl AST 53 H (13-39) U/L ALT 102 H (7-52) U/L Alkaline Phosphatase 75 (34-104) U/L Troponin I High Sens 8.7 (0-20) pg/ml Total Protein 8.1 (6.0-8.3) gm/dl Albumin 4.7 (3.4-5.0) gm/dl Globulin 3.4 (2.5-4.0) gm/dl Albumin/Globulin Ratio 1.4 (0.9-2) Lipase 17 (11-82) U/L Urine Color Dark Yellow Urine Appearance Cloudy A (Clear) Urine pH 5.0 (4.5-7.5) Ur Specific [place] 1.040 H (1.000-1.030) Urine Protein 4+ H (Negative) Urine Glucose (UA) 3+ H (Negative) Urine Ketones 3+ H (Negative) Urine Blood 2+ H (Negative) Urine Nitrite Negative (Negative) Urine Bilirubin 1+ H (Negative) Urine Urobilinogen Negative (Negative) Ur Leukocyte Esterase Negative (Negative) Urine WBC (Auto) 1-5 (0-5) /hpf Urine RBC (Auto) 5-10 H (0-4) /hpf U Hyaline Cast (Auto) >30 H (0-5) /lpf U Epithel Cells (Auto) >30 H (0-5) /lpf Urine Bacteria (Auto) 1+ H (Negative) Granular Casts 5-10 H (0) /lpf Urine Mucus Present A (None Prsent) Diagnostic Findings CT OF THE ABDOMEN AND PELVIS WITH CONTRAST CLINICAL HISTORY: Right flank pain. Abnormal noncontrast CT. Evaluate appendix. COMPARISON STUDY: CT of the abdomen and pelvis performed earlier today and December 28, 2020. TECHNIQUE: Following IV administration of 90 mL of Optiray, axial images of the abdomen and pelvis were obtained from the lung bases to the proximal femurs. Images were reviewed in the axial, sagittal, and coronal planes. IV contrast was administered without complication. Automated exposure control was utilized for the study. A dose lowering technique was utilized adhering to the principles of ALARA. CT DOSE: 1555.94 mGy.cm FINDINGS: No pneumatosis, free air or portal venous gas is present. There is hepatic steatosis. There are no hepatic lesions. There is no biliary or pancreatic ductal dilatation. Spleen, adrenal glands, kidneys and pancreas are unremarkable. There is no hydronephrosis. There is no evidence for a bowel obstruction. The appendix is mildly dilated with thickened wall. The appendix measures 1 cm in caliber. There is no periappendiceal infiltration. A low- attenuation density within the lumen of the appendiceal tip is noted. There is no free air. There is no abscess. Appendiceal dilatation has developed since prior CT of February 27, 2021. There is no lymphadenopathy. Major vasculature is patent. No fluid collection is present. IMPRESSION: 1. Mildly dilated appendix with thickened wall. The findings are equivocal for acute appendicitis however no periappendiceal infiltration to strongly suggest acute appendicitis. A small mucocele is also within the differential. 2. Hepatic steatosis. 3. No bowel obstruction. No bowel wall thickening.
[2023-02-10] MEDS ORDERED: HYDROmorphone INJ 2 MG/ML SYR/VIAL IV PRN (15:07)
[2023-02-10] MEDS ORDERED: BUPIVACAINE/EPINEPHRINE 0.5% MPF 1:200,000 30 ML VIAL ONE (15:07)
[2023-02-10] MEDS ORDERED: ePHEDrine sulfate 50 MG/ML AMP IV PRN (15:07)
[2023-02-10] MEDS ORDERED: ONDANSETRON INJ 2 MG/ML 2 ML VIAL IV PRN ×2 (15:07→17:56)
[2023-02-10] MEDS ORDERED: ATROPINE SULFATE 0.1 MG/ML 10ML SYR IV PRN (15:07)
[2023-02-10] MEDS ORDERED: fentaNYL citrate PF 100 MCG/2 ML VIAL IV PRN (15:07)
--- NOTE | 2023-02-10 15:13 | Anesthesiology Consultation ---
Date of Service February 10, 2023 Assessment & Plan (1) Encounter for pre-operative examination: Chart Review Chart Review: Acceptable Risk for Surgery and Patient NOT seen in Pre Admission Testing Consults Requested none History Surgery Operation Date: 02/10/23 14:05 Proposed Procedures p Laparoscopic Appendectomy - Adarsh Winston MD Height/Weight Height: 6 ft 3 in Weight: 139.8 kg Allergies Allergy/AdvReac Type Severity Reaction Status Date / Time Cephalosporins Allergy Unknown Unknown Verified 02/10/23 15:26 NSAIDS (Non-Steroidal AdvReac Intermediate gastroparesis, Verified 02/10/23 15:26 Anti-Inflamma kidney problems empagliflozin AdvReac Unknown Unknown Verified 02/10/23 15:26 [From Jardiance] Medications Home Medications Medication Instructions Recorded Confirmed Last Taken insulin aspart U-100 100 unit/mL 12 unit subcut TIDM 06/09/19 02/08/23 09/25/21 08:00 (3 mL) subcutaneous pen (Novolog FlexPen U-100 Insulin aspart) dicyclomine 10 mg capsule 10 mg PO QID PRN Diarrhea 05/01/20 02/08/23 09/25/21 08:00 famotidine 20 mg tablet 20 mg PO HS 07/13/20 02/08/23 09/10/21 docusate sodium 100 mg capsule 100 mg PO BID PRN Constipation 02/25/21 02/08/23 02/27/21 (Col-Rite) pantoprazole 40 mg tablet,delayed 40 mg PO BID 02/25/21 02/08/23 09/25/21 08:00 release losartan 50 mg tablet 50 mg PO QAM 08/26/21 02/08/23 09/25/21 08:00 metformin 500 mg tablet 1,000 mg PO BID 08/26/21 02/08/23 09/25/21 08:00 cyclobenzaprine 10 mg tablet 10 mg PO HS PRN Muscle Spasm 09/06/22 02/08/23 Unknown gabapentin 100 mg capsule 100 mg PO QAM 09/06/22 02/08/23 Unknown gabapentin 100 mg capsule 200 mg PO HS 09/06/22 02/08/23 Unknown insulin glargine 100 unit/mL (3 25 unit subcut QAM 09/06/22 02/08/23 Unknown mL) subcutaneous pen (Lantus Solostar U-100 Insulin) insulin glargine 100 unit/mL (3 34 unit subcut HS 09/06/22 02/08/23 Unknown mL) subcutaneous pen (Lantus Solostar U-100 Insulin) metoclopramide HCl 10 mg tablet 10 mg PO TIDM 09/06/22 02/08/23 Unknown benzonatate 200 mg capsule 200 mg PO TID PRN cough #30 caps 09/07/22 02/08/23 Unknown budesonide-formoterol HFA 80 2 puff inhalation AMHS 02/08/23 02/08/23 Unknown mcg-4.5 mcg/actuation aerosol inhaler (Symbicort) metoprolol succinate 50 mg 75 mg PO DAILY 02/08/23 02/08/23 Unknown tablet,extended release 24 hr promethazine 25 mg tablet 25 mg PO Q6H PRN nausea and 02/08/23 Unknown vomiting #14 tabs semaglutide (weight loss) 1.7 1.7 mg subcut WK 02/08/23 02/08/23 Unknown mg/0.75 mL subcutaneous pen injector (Wegovy) Past Medical History Medical History (Updated 02/10/23 @ 15:18 by Irving Alfonso MD) Acquired deviated nasal septum Cardiac murmur A CHILD Encounter for pre-operative examination Erectile dysfunction Esophagitis GERD (gastroesophageal reflux disease) History of DVT (deep vein thrombosis) History of ventricular tachycardia "nonsustained" Hx of pancreatitis resolved IBS (irritable bowel syndrome) Intellectual disability MRSA (methicillin resistant Staphylococcus aureus) carrier over 2 yrs ago Obesity Osteoarthritis Tussive syncope Past Family History Family History Brother Family history of diabetes mellitus Environmental allergies Asthma Mother Family history of diabetes mellitus Hypertension Environmental allergies Father Family history of diabetes mellitus Hypertension Heart disease Grandfather (Paternal) Lung cancer smoker Aunt Bleeding disorder Other No family history of adverse response to anesthesia Past Surgical History Surgical History H/O foot surgery LEFT-2018 History of arthroscopy LEFT KNEE-1987 History of colonoscopy History of esophagogastroduodenoscopy (EGD) History of nasal septoplasty 09/25/21-Dr. Garcia History of reduction of nasal fracture 09/25/21-Dr. Garcia History of shoulder surgery right-2020 History of tonsillectomy and adenoidectomy 1979 History of tooth extraction Status post incision and drainage LLE nasal fracture repair [address] Garcia. Glidescope #4 elective. Social History Smoking Status: Current every day smoker tobacco type: cigarettes Smoking cigarettes per day: 30-40 Hx Alcohol Use: Yes Alcohol type: beer alcohol intake frequency: holidays/special occasions only Hx Substance Use: No substance use type: does not use Physical Exam Vital Signs Last Vital Signs Temp 37.3 C 02/10/23 15:15 Pulse 122 H 02/10/23 15:15 Resp 18 02/10/23 15:15 BP 134/98 02/10/23 15:15 Pulse Ox 97 02/10/23 15:15 O2 Del Method Room Air 02/10/23 15:15 Testing Laboratory Results 02/10/23 11:16 02/10/23 11:16 Urine Color Dark Yellow 02/10/23 13:15 Urine Appearance Cloudy (Clear) A 02/10/23 13:15 Urine pH 5.0 (4.5-7.5) 02/10/23 13:15 Ur Specific [place] 1.040 (1.000-1.030) H 02/10/23 13:15 Urine Protein 4+ (Negative) H 02/10/23 13:15 Urine Glucose (UA) 3+ (Negative) H 02/10/23 13:15 Urine Ketones 3+ (Negative) H 02/10/23 13:15 Urine Nitrite Negative (Negative) 02/10/23 13:15 Ur Leukocyte Esterase Negative (Negative) 02/10/23 13:15 Urine WBC (Auto) 1-5 /hpf (0-5) 02/10/23 13:15 Urine RBC (Auto) 5-10 /hpf (0-4) H 02/10/23 13:15 U Hyaline Cast (Auto) >30 /lpf (0-5) H 02/10/23 13:15 U Epithel Cells (Auto) >30 /lpf (0-5) H 02/10/23 13:15 Urine Bacteria (Auto) 1+ (Negative) H 02/10/23 13:15 02/10/23 15:21 POC Glucose 164 H Electrocardiogram Date: 02/10/23 incomplete RBBB. Tachy. HR 120. Chest X-Ray Date: 10/23/22 TWO VIEW CHEST CLINICAL HISTORY: Atypical chest pain. FINDINGS: PA and lateral chest radiographs are compared to study dated 09/17/2022 and correlated with chest CT dated 09/14/2022. The cardiomediastinal silhouette is unremarkable. There is mild elevation of the right hemidiaphragm. The lungs and pleural spaces are clear. There is no pneumothorax. The bony thorax appears intact. IMPRESSION: No active disease in the chest. Echocardiogram Date: 09/07/22 EF 60-65%. No RWMA. RV is normal in size and function. No valvular pathology
[2023-02-10] MEDS ORDERED: LIDOCAINE 2% MPF LOCAL 5 ML VIAL ONE (15:17)
[2023-02-10] MEDS ORDERED: PROPOFOL IV EMULSION 10 MG/ML 20 ML VIAL IV ONE (15:17)
[2023-02-10] MEDS ORDERED: ONDANSETRON INJ 2 MG/ML 2 ML VIAL ONE (15:17)
[2023-02-10] MEDS ORDERED: ROCURONIUM BROMIDE 10 MG/ML 5 ML VIAL IV ONE (15:17)
[2023-02-10] MEDS ORDERED: DEXAMETHASONE SOD INJ 4 MG/ML VIAL ONE (15:17)
[2023-02-10] MEDS ORDERED: MIDAZOLAM HCL 1 MG/ML 2ML VIAL ONE (15:24)
[2023-02-10] MEDS ORDERED: fentaNYL citrate PF 100 MCG/2 ML VIAL ONE ×2 (15:24→16:19)
[2023-02-10] MEDS ORDERED: CIPROFLOXACIN / D5W 400 MG/200 ML BAG IV SCH (15:29)
[2023-02-10] MEDS ORDERED: SUGAMMADEX SODIUM 200 MG/2 ML VIAL IV ONE (16:29)
--- NOTE | 2023-02-10 16:53 | Electrocardiogram Report ---
Test Reason : Blood Pressure : / mmHG Vent. Rate : 120 BPM Atrial Rate : 120 BPM P-R Int : 168 ms QRS Dur : 102 ms QT Int : 350 ms P-R-T Axes : 161 138 167 degrees QTc Int : 494 ms Suspect arm lead reversal, interpretation assumes no reversal Unusual P axis, possible ectopic atrial tachycardia Low voltage QRS Incomplete right bundle branch block Lateral infarct (cited on or before 23-OCT-2022) Abnormal ECG When compared with ECG of 23-OCT-2022 12:25, Ectopic atrial rhythm has replaced Sinus rhythm QRS axis Shifted right Questionable change in initial forces of Anterolateral leads Nonspecific T wave abnormality, worse in Inferior leads Confirmed by George Morris ([id number]) on 02/10/2023 4:53:10 PM Referred By: Confirmed By:George Morris
--- NOTE | 2023-02-10 16:56 | Operative Report ---
Post Operative Report Pre & Post Diagnosis Operation Date: 02/10/23 14:05 Pre-Op Diagnosis: ABDOMINAL PAIN Post-Op Diagnosis: ABDOMINAL PAIN I identified the patient and participated in the time-out.: Yes Procedure Operation Date: 02/10/23 14:05 Actual Procedures p Laparoscopic Appendectomy(Not Applicable) - Adarsh Winston MD Surgeon Adarsh Winston MD Traffic Maintenance Officer None Estimated Blood Loss 5 Findings Consistent with Post-Op Diagnosis Acute appendicitis Specimens Appendix Drains None Anesthesia Type General Complications No immediate complications Description of Procedure The patient was taken to the operating room, and placed supine on the operating table. A timeout was performed, perioperative antibiotics were administered, SCD boots were placed. After adequate anesthesia and analgesia was obtained, the abdomen was prepped and draped in the normal sterile fashion. A 1 cm incision was made in the supraumbilical region and carried down to the level of the fascia. A trach hook was used to grasp the fascia and elevated and a varies needle was used to enter the abdominal cavity. The abdomen was insufflated to a pressure of 15 mmHg, and a 5 mm trocar was placed in this location. A 5 mm 30 degree laparoscope was placed into the abdominal cavity, and the abdomen was surveyed. The patient was placed in Trendelenburg and slightly to the left. One 5 mm trocar was placed in the right upper quadrant, and one 12 mm trocar was placed in the left lower quadrant under direct visualization. The right colon was identified and traced down to the cecum. The appendix was identified and elevated anteriorly and medially. A window was created at the base of the appendix with a [place] dissector. The Endo JENNIFER stapler was used to transect the appendix at its base through noninflamed tissue, and subsequently the mesoappendix. The appendix was placed in an Endo Catch bag, and removed via the left lower quadrant port site. Attention was turned to hemostasis, which was excellent. The abdomen was copiously irrigated and suctioned free, and again hemostasis was found to be excellent. All trochars removed under direct visualization. The abdomen was desufflated. The fascia in the 12 mm port site was closed with a 0 Vicryl suture. The skin was closed with a running 4-0 Monocryl subcuticular stitch. Dermabond was applied. The patient tolerated the procedure without complication, and was transferred in stable condition to the PACU. All instrument, needle, and sponge counts were correct at the end of the case. I attest to the content of the Intraoperative Record and any orders documented therein. Any exceptions are noted below.
--- NOTE | 2023-02-10 17:29 | Anesthesiology Progress Note ---
Date of Service February 10, 2023 Anesthesia Post Procedure Vital Signs Vital Signs: Temp Pulse Pulse Pulse Resp BP BP 02/10/23 17:25 113 H 15 155/70 H 02/10/23 17:15 113 H 12 125/69 02/10/23 17:05 115 H 14 142/67 H 02/10/23 16:57 36.1 C L 117 H 18 173/74 H 02/10/23 15:15 37.3 C 122 H 18 134/98 02/10/23 13:00 127 H 21 02/10/23 12:07 183/121 H 02/10/23 12:07 124 H 23 02/10/23 12:05 02/10/23 11:13 123 H 19 02/10/23 11:13 172/87 H 02/10/23 11:12 122 H 19 02/10/23 11:07 36.9 C 123 H 22 172/87 H 02/10/23 11:17 122 H Pulse Ox O2 Del Method O2 Flow Rate 02/10/23 17:25 95 Nasal Cannula 2 02/10/23 17:15 95 Oxymask 9 02/10/23 17:05 95 Oxymask 9 02/10/23 16:57 97 Oxymask 9 02/10/23 15:15 97 Room Air 02/10/23 13:00 96 02/10/23 12:07 02/10/23 12:07 97 02/10/23 12:05 96 02/10/23 11:13 97 02/10/23 11:13 02/10/23 11:12 98 02/10/23 11:07 97 Room Air 02/10/23 11:17 Pain Intensity Abdomen: Pain Intensity: 3 Transfer of Care Handoff Completed per policy Notes Mental Status: alert / awake / arousable and participated in evaluation Patient Amnestic to Procedure: Yes Nausea / Vomiting: adequately controlled Pain: adequately controlled Airway Patency, RR, SpO2: stable & adequate BP & HR: stable & adequate Hydration State: stable & adequate Anesthetic Complications: no major complications apparent and Pt Satisfied with anesthetic care
[2023-02-10] MEDS ORDERED: diphenhydrAMINE Capsule 25 MG CAP PO PRN (17:56)
[2023-02-10] MEDS ORDERED: PROMETHAZINE HCL 12.5 MG in SODIUM CHLORIDE 0.9% 50 ML IV PRN (17:56)
[2023-02-10] MEDS ORDERED: KETOROLAC 30 MG/ML VIAL IV PRN (17:56)
[2023-02-10] MEDS ORDERED: MoRPHine SULFATE 2 MG/ML CARP IV PRN (17:56)
--- NOTE | 2023-02-10 18:29 | Consultation ---
Date of Consultation February 10, 2023 Assessment & Plan (1) S/P laparoscopic appendectomy: Post op day# 0 S/P laparoscopic appendectomy by Dr Winston -pain management per surgery -wound management per surgery -DVT prophylaxis per general surgery, Lovenox -incentive spirometry -monitor H&H for acute blood loss anemia -monitor WBC (2) Abnormal urinalysis: Abnormal UA Patient without any urinary symptoms -Monitor for development urinary symptoms (3) Acute electrocardiogram changes: EKG: Rate 120, possible lead reversal. Possible ectopic atrial tachycardia, incomplete RBBB, T wave flattening inferior leads Denies CP, SOB -Repeat EKG in am (4) Elevated liver function tests: AST: 53, ALT: 102, alk phos: 75, T. bili 0.8 Patient reports taking Tylenol daily -Repeat liver functions in a.m. (5) Diabetes mellitus, type 2: A1c: 7.8 on 01/05/2023 -Hold home metformin, insulin glargine and NovoLog -Basal bolus insulin per protocol (6) HTN (hypertension): - Continue losartan, metoprolol succinate (7) Restrictive lung disease: - Continue Symbicort (8) IBS (irritable bowel syndrome): (9) Gastroparesis: (10) GERD (gastroesophageal reflux disease): -Continue Pepcid, PPI, Bentyl -Hold Reglan for now as other antiemetics ordered as needed (11) Obstructive sleep apnea: -CPAP with 2 L O2 at bedtime (12) Morbid obesity: -BMI 38 -Following up outpatient weight management and just recently started on Wegovy (13) Diabetic peripheral neuropathy associated with type 2 diabetes mellitus: - Continue gabapentin (14) Tobacco use: - Nicotine patch -Smoking cessation encouraged DVT Prophylaxis -Lovenox SQ Disposition per primary service Follows with Dr Valencia for routine care Pt was seen and care coordinated with Dr Richard. See addendum I spent a total of 48 minutes reviewing notes, outpatient records, labs, medication, coordinating, documenting and providing care for this patient excluding time spent in the performance of separately billed services. Thank you for this consultation. We will follow the patient with you during their hospital stay. You can reach a [facility]05 via [facility] Supervising Physician Co-Signing Physician Notes Patient is a 47-year-old male with multiple comorbidities was consulted for postop medical management after having appendectomy by Dr. Winston today. Patient states minimal pain at surgical site which is controlled. Denies any chest pain, dyspnea, dizziness, nausea. Offers no other complaints. Reviewed labs, imaging studies. On exam patient is obese, no apparent distress, normocephalic/atraumatic, EOMI, normal breath sounds, clear to auscultation, S1- S2, no murmur, no pedal edema, abdomen soft, mild tenderness, laparoscopic surgical scars noted, alert, awake, oriented, grossly no focal deficits. Patient is consulted for postop medical management. Bowel regimen to prevent constipation. Monitor for postop anemia. On DVT prophylaxis with Lovenox. Incentive spirometry. Wound care, activity as per primary team. Mildly tachycardic noted postop. Continue metoprolol. Continue insulin while hospitalized for management of diabetes mellitus. Continue CPAP for sleep apnea. I personally reviewed the record. Patient is interviewed and examined at bedside. Patient's care is coordinated with Jolene Ruano PA-C. Please refer to the documentation above for details of patient's presentation and for discussion of other issues. History of Present Illness Requesting Physician: Dr Winston Reason for Consultation: Postop medical management Attending Physician: Adarsh Winston MD History of Present Illness Patient is a 47-year-old male with PMH DM II, HTN, gastroparesis, neuropathy, restrictive lung disease, GERD, depression, DAMION, obesity, tobacco use seen in medical consultation s/p appendectomy today by Dr. Winston. Patient had presented to the ER today for RLQ abdominal pain. Found to have WBC of 11, CT abdomen pelvis: Mildly dilated appendix with thickened wall, equivocal for acute appendicitis. Postop patient reports is feeling well. Reports very minimal abdominal pain. Prior to surgery patient reported feeling hot and had diaphoresis when he was having severe pain. Denies MCCARTY, dizziness, syncope, CP, SOB, rhinorrhea, weakness, extremity weakness, extremity edema, rashes, dysuria, urinary frequency/urgency, hematuria. Allergies Allergy/AdvReac Type Severity Reaction Status Date / Time Cephalosporins Allergy Unknown Unknown Verified 02/10/23 15:26 NSAIDS (Non-Steroidal AdvReac Intermediate gastroparesis, Verified 02/10/23 15:26 Anti-Inflamma kidney problems empagliflozin AdvReac Unknown Unknown Verified 02/10/23 15:26 [From [facility]] Home Medications Medication Instructions Recorded Confirmed Type insulin aspart U-100 100 unit/mL 16 unit subcut TIDM 06/09/19 02/10/23 History (3 mL) subcutaneous pen (Novolog FlexPen U-100 Insulin aspart) dicyclomine 10 mg capsule 10 mg PO QID PRN Diarrhea 05/01/20 02/10/23 History famotidine 20 mg tablet 20 mg PO HS 07/13/20 02/10/23 History docusate sodium 100 mg capsule 100 mg PO BID PRN Constipation 02/25/21 02/10/23 History (Col-Rite) pantoprazole 40 mg tablet,delayed 40 mg PO BID 02/25/21 02/10/23 History release losartan 50 mg tablet 50 mg PO QAM 08/26/21 02/10/23 History metformin 500 mg tablet 1,000 mg PO BID 08/26/21 02/10/23 History cyclobenzaprine 10 mg tablet 10 mg PO HS PRN Muscle Spasm 09/06/22 02/10/23 History gabapentin 100 mg capsule 100 mg PO QAM 09/06/22 02/10/23 History gabapentin 100 mg capsule 200 mg PO HS 09/06/22 02/10/23 History insulin glargine 100 unit/mL (3 25 unit subcut QAM 09/06/22 02/10/23 History mL) subcutaneous pen (Lantus Solostar U-100 Insulin) insulin glargine 100 unit/mL (3 34 unit subcut HS 09/06/22 02/10/23 History mL) subcutaneous pen (Lantus Solostar U-100 Insulin) metoclopramide HCl 10 mg tablet 10 mg PO TIDM 09/06/22 02/10/23 History budesonide-formoterol HFA 80 2 puff inhalation [facility] 02/08/23 02/10/23 History mcg-4.5 mcg/actuation aerosol inhaler (Symbicort) metoprolol succinate 50 mg 75 mg PO DAILY 02/08/23 02/10/23 History tablet,extended release 24 hr semaglutide (weight loss) 1.7 1.7 mg subcut WK 02/08/23 02/10/23 History mg/0.75 mL subcutaneous pen injector (Mary Beth) Patient History Medical History (Updated 02/10/23 @ 19:25 by Jolene Ruano PA-C) Acquired deviated nasal septum Cardiac murmur A CHILD Encounter for pre-operative examination Erectile dysfunction Esophagitis GERD (gastroesophageal reflux disease) History of DVT (deep vein thrombosis) History of ventricular tachycardia "nonsustained" Hx of pancreatitis resolved IBS (irritable bowel syndrome) Intellectual disability MRSA (methicillin resistant Staphylococcus aureus) carrier over 2 yrs ago Obesity Obstructive sleep apnea no cpap Osteoarthritis Restrictive lung disease Tobacco use Tussive syncope Surgical History (Updated 02/10/23 @ 19:25 by Jolene Ruano PA-C) H/O foot surgery LEFT-2018 History of appendectomy 02/10/2023 History of arthroscopy LEFT [id number] History of colonoscopy History of esophagogastroduodenoscopy (EGD) History of nasal septoplasty 09/25/21-Dr. Garcia History of reduction of nasal fracture 09/25/21-Dr. Garcia History of shoulder surgery right-2019 History of tonsillectomy and adenoidectomy 1979 History of tooth extraction Status post incision and drainage LLE Family History Brother Family history of diabetes mellitus Environmental allergies Asthma Mother Family history of diabetes mellitus Hypertension Environmental allergies Father Family history of diabetes mellitus Hypertension Heart disease Grandfather (Paternal) Lung cancer smoker Aunt Bleeding disorder Other No family history of adverse response to anesthesia Social History Smoking Status: Current every day smoker Tobacco Type: Cigarettes Age Started Using Tobacco: 14; Cigarettes Per Day: 30-40; Second Hand Exposure: Yes; Hx Alcohol Use: No Hx Substance Use: No Preferred Language: Norwegian Communication Ability: Effective Upper Inspector Required: No Beliefs That Will Affect Care: None marital status: / marital status details: single at this time Current Living Situation: Significant Other Current Living Situation Comment: house current occupational status: employed 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 other: girlfriend able to assist with dressing changes and care as needed Feels Safe at Home: Yes during the past year weight has: remained stable Assistive Devices: None Review of Systems Review of Systems: All systems reviewed & are unremarkable except as noted in HPI & below Physical Exam Physical Exam: General: no distress, +obese Head: normocephalic, atraumatic Eyes: conjunctiva non-injected, anicteric ENT: normal inspection external ears, nose, mucous membranes moist Neck: supple, trachea midline Lungs: clear, no respiratory distress, no wheezing/rhonchi/rales CV: RRR, no murmur, no pretibial edema Abd: +surgical incision supraumbilical, RUQ and LLQ closed with Dermabond without surrounding erythema and no noted discharge, normal BS, soft, no significant tenderness to palpation Ext: no cyanosis, no calf tenderness Neuro: A&O x 3, no focal deficits noted, normal affect Skin: warm, dry Results & Data Vital Signs (Past 12 Hours) Vital Signs Temp Pulse Pulse Pulse Resp BP BP 02/10/23 18:27 37.0 C 113 H 16 156/88 H 02/10/23 18:04 37.1 C 114 H 14 150/75 H 02/10/23 17:45 112 H 13 143/68 H 02/10/23 17:35 36.3 C L 112 H 12 149/76 H 02/10/23 17:25 113 H 15 155/70 H 02/10/23 17:15 113 H 12 125/69 02/10/23 17:05 115 H 14 142/67 H 02/10/23 16:57 36.1 C L 117 H 18 173/74 H 02/10/23 15:15 37.3 C 122 H 18 134/98 02/10/23 13:00 127 H 21 02/10/23 12:07 183/121 H 02/10/23 12:07 124 H 23 02/10/23 12:05 02/10/23 11:13 123 H 19 02/10/23 11:13 172/87 H 02/10/23 11:12 122 H 19 02/10/23 11:07 36.9 C 123 H 22 172/87 H 02/10/23 11:17 122 H Pulse Ox O2 Del Method O2 Flow Rate 02/10/23 18:27 97 Nasal Cannula 2 02/10/23 18:04 96 Nasal Cannula 2 02/10/23 17:45 97 Nasal Cannula 2 02/10/23 17:35 96 Nasal Cannula 2 02/10/23 17:25 95 Nasal Cannula 2 02/10/23 17:15 95 Oxymask 9 02/10/23 17:05 95 Oxymask 9 02/10/23 16:57 97 Oxymask 9 02/10/23 15:15 97 Room Air 02/10/23 13:00 96 02/10/23 12:07 02/10/23 12:07 97 02/10/23 12:05 96 02/10/23 11:13 97 02/10/23 11:13 02/10/23 11:12 98 02/10/23 11:07 97 Room Air 02/10/23 11:17 Laboratory Results Short CBC 02/10/23 Range/Units 11:16 WBC 11.29 H (4.8-10.8) K/ul Hgb 14.0 (14.0-18.0) g/dl Hct 40.8 L (42.0-52.0) % Plt Count 271 (130-400) K/uL BMP 02/10/23 11:16 Sodium 137 Potassium 3.9 Chloride 99 Carbon Dioxide 24 BUN 19 Creatinine 0.97 Glucose 217 H Calcium 9.7 Liver Function 02/10/23 Range/Units 11:16 Total Bilirubin 0.8 (0.2-1.0) mg/dl AST 53 H (13-39) U/L ALT 102 H (7-52) U/L Alkaline Phosphatase 75 (34-104) U/L Albumin 4.7 (3.4-5.0) gm/dl Urine 02/10/23 Range/Units 13:15 Urine Color Dark Yellow Urine Appearance Cloudy A (Clear) Urine pH 5.0 (4.5-7.5) Ur Specific [place] 1.040 H (1.000-1.030) Urine Protein 4+ H (Negative) Urine Glucose (UA) 3+ H (Negative) Diagnostic Findings Abdomen/Pelvis CT 02/10/23 11:26 CT OF THE ABDOMEN AND PELVIS WITHOUT CONTRAST CLINICAL HISTORY: Right flank pain. COMPARISON STUDY: CT of the abdomen and pelvis February 27, 2021 and right upper quadrant ultrasound September 19, 2022. TECHNIQUE: Axial images of the abdomen and pelvis were obtained without IV contr ast. Images were reviewed in the axial, sagittal, and coronal planes. Automated exposure control was utilized for the study. A dose lowering technique was utilized adhering to the principles of ALARA. FINDINGS: Lung bases are unremarkable. No pneumatosis, free air or portal venous gas is present. No renal, ureteral or bladder calculi are present. There is no hydronephrosis or hydroureter. Evaluation of the remainder of the abdomen and pelvis is suboptimal on this unenhanced exam. Hepatic steatosis. Spleen, adrenal glands and pancreas are unremarkable. Is no biliary or pancreatic ductal d ilatation. There is no evidence for a bowel obstruction. The appendix is mildly dilated, measuring 1 cm in caliber. The wall is slightly thickened. However, there is no adjacent inflammation. Appendiceal dilatation has developed since prior CT. There is no evidence for a bowel obstruction. No definite bowel wall thickening. There is no lymphadenopathy. No ascites. IMPRESSION: 1. No urinary calculi or hydronephrosis. 2. Mildly dilated appendix. However, no periappendiceal inflammation. These findings do not strongly suggest acute appendicitis however correlation with clinical evidence for acute appendicitis is recommended. 3. No bowel obstruction. 4. Hepatic steatosis. ACT 112: Negative or not required by law. Electronically signed by: Serge Ghotra M.D. 02/10/2023 12:49 PM Gallbladder Ultrasound 02/10/23 13:01 US gallbladder CLINICAL HISTORY: Right-sided abdominal pain. COMPARISON STUDY: Right upper quadrant ultrasound September 19, [address] of the abdomen and pelvis performed earlier today. FINDINGS: Hepatic echogenicity is increased. No hepatic lesions are identified although sensitivity is diminished given suboptimal penetration. The gallbladder is normal. There are no gallstones. No sonographic Romero sign was elicited. There is no biliary ductal dilatation. Pancreas is obscured. There is no right hydronephrosis. IMPRESSION: 1. No gallstones or biliary ductal dilatation. 2. Hepatic steatosis. 3. Exam compromised by suboptimal penetration. Obscured pancreas. ACT 112: Negative or not required by law. Electronically signed by: Serge Ghotra M.D. 02/10/2023 2:24 PM Abdomen/Pelvis CT 02/10/23 13:09 CT OF THE ABDOMEN AND PELVIS WITH CONTRAST CLINICAL HISTORY: Right flank pain. Abnormal noncontrast CT. Evaluate appendix. COMPARISON STUDY: CT of the abdomen and pelvis performed earlier today and December 28, 2020. TECHNIQUE: Following IV administration of 90 mL of Optiray, axial images of the abdomen and pelvis were obtained from the lung bases to the proximal femurs. Images were reviewed in the axial, sagittal, and coronal planes. IV contrast was administered without complication. Automated exposure control was utilized for the study. A dose lowering technique was utilized adhering to the principles of ALARA. CT DOSE: 1555.94 mGy.cm FINDINGS: No pneumatosis, free air or portal venous gas is present. There is hepatic steatosis. There are no hepatic lesions. There is no biliary or pancreatic ductal dilatation. Spleen, adrenal glands, kidneys and pancreas are unremarkable. There is no hydronephrosis. There is no evidence for a bowel obstruction. The appendix is mildly dilated with thickened wall. The appendix measures 1 cm in caliber. There is no periappendiceal infiltration. A low- attenuation density within the lumen of the appendiceal tip is noted. There is no free air. There is no abscess. Appendiceal dilatation has developed since prior CT of February 27, 2021. There is no lymphadenopathy. Major vasculature is patent. No fluid collection is present. IMPRESSION: 1. Mildly dilated appendix with thickened wall. The findings are equivocal for acute appendicitis however no periappendiceal infiltration to strongly suggest acute appendicitis. A small mucocele is also within the differential. 2. Hepatic steatosis. 3. No bowel obstruction. No bowel wall thickening. ACT 112: Negative or not required by law. Electronically signed by: Serge Ghotra M.D. 02/10/2023 1:54 PM
[2023-02-10] MEDS ORDERED: POLYETHYLENE (MIRALAX) 17 GM PACK PO PRN (19:05)
[2023-02-10] MEDS ORDERED: DICYCLOMINE HCL 10 MG CAP PO PRN (19:06)
[2023-02-10] MEDS ORDERED: DEXTROSE 50% 50 ML SYRINGE IV PRN (19:08)
[2023-02-10] MEDS ORDERED: GLUCOSE 10 TAB/TUBE PO PRN (19:08)
[2023-02-10] MEDS ORDERED: CARBOHYDRATES FOR HYPOGLYCEMIA PO PRN (19:08)
[2023-02-10] MEDS ORDERED: GLUCAGON FOR INJ 1 MG VIAL SQ PRN (19:08)
[2023-02-10] MEDS ORDERED: GLUCOSE 40% GEL 15 GM TUBE PO PRN (19:08)
[2023-02-10] MEDS: oxyCODONE/ACETAMINOPHEN 5mg/325mg TAB PO PRN (19:46)
[2023-02-10] MEDS ORDERED: DOCUSATE SODIUM SYRUP 100 MG/10 ML UDC PO SCH (21:00)
[2023-02-10] MEDS ORDERED: METOPROLOL TARTRATE 25 MG TAB PO ONE (21:00)
[2023-02-10] MEDS: LANTUS PER UNIT CHARGE SQ SCH (21:20)
[2023-02-10] MEDS: INSULIN ASPART PER UNIT CHARGE SC SCH (21:20)
[2023-02-10] MEDS: FAMOTIDINE 20 MG TAB PO SCH (21:21)
[2023-02-10] MEDS: PANTOprazole 40 MG TAB PO SCH (21:22)
[2023-02-10] MEDS: DOCUSATE SODIUM 100 MG CAP PO SCH (21:22)
[2023-02-10] MEDS: GABAPENTIN 100 MG CAP PO SCH (21:22)
[2023-02-10] MEDS: NICOTINE 21 MG/24 HR TDSY TD SCH (21:22)
[2023-02-11] MEDS: oxyCODONE/ACETAMINOPHEN 5mg/325mg TAB PO PRN ×4 (05:34→23:04)
[2023-02-11 06:43] LABS: Basophils # (auto) 0.05 K/uL (0-0.2); Basophils % (auto) 0.4 %; Eosinophils # (auto) 0.17 K/uL (0-0.50); Eosinophils % (auto) 1.5 %; Hemoglobin 12.9 g/dl (14.0-18.0); Immature Granulocytes # (auto) 0.07 K/uL (0.01-0.20); Immature Granulocytes % (auto) 0.6 %; Lymphocytes # (auto) 3.15 K/uL (1.2-3.4); Lymphocytes % (auto) 27.7 %; Mean Corpuscular Hemoglobin 27.4 pg (25.0-34.0); Mean Corpuscular Hgb Conc 33.1 g/dL (32.0-36.0); Mean Platelet Volume 9.2 fL (9.4-12.4); Monocytes # (auto) 1.13 K/uL (0.11-0.59); Monocytes % (auto) 9.9 %; Neutrophils % (auto) 59.9 %; Platelet Count 256 K/uL (130-400); RDW Coefficient of Variation 13.3 % (11.5-14.5); RDW Standard Deviation 40.5 fL (36.4-46.3); White Blood Count 11.37 K/ul (4.8-10.8)
[2023-02-11] MEDS: MoRPHine SULFATE 2 MG/ML CARP IV PRN ×2 (06:43→10:41)
[2023-02-11 07:00] LABS: Albumin Globulin Ratio 1.4 (0.9-2); Albumin Level 4.2 gm/dl (3.4-5.0); BUN Creatinine Ratio 19.3 (10-20); Calcium 9.1 mg/dl (8.6-10.3); Creatinine Clr Calc Pharmacy 152.7 ml/min; Est GFR (African American) 116.9 ml/min; Est GFR (Non-African American) 100.9 ml/min; Globulin 3.1 gm/dl (2.5-4.0); Potassium 3.4 mmol/L (3.5-5.1); Total Protein 7.3 gm/dl (6.0-8.3)
[2023-02-11] MEDS ORDERED: POTASSIUM CHLORIDE CRTAB 20 MEQ TABCR PO ONE (07:47)
[2023-02-11] MEDS ORDERED: CYCLOBENZAPRINE HCL 10 MG TAB PO PRN ×2 (09:12→10:20)
[2023-02-11] MEDS ORDERED: CYCLOBENZAPRINE HCL 10 MG TAB PO STA (09:13)
[2023-02-11] MEDS ORDERED: KETOROLAC 30 MG/ML VIAL IV ONE (09:15)
[2023-02-11] MEDS: FLUTICASONE/VILANTEROL 100/25MCG 14 PUFFS/INHALER INH SCH (09:22)
[2023-02-11] MEDS: DOCUSATE SODIUM 100 MG CAP PO SCH ×2 (09:24→20:11)
[2023-02-11] MEDS: GABAPENTIN 100 MG CAP PO SCH ×2 (09:25→20:12)
[2023-02-11] MEDS: NICOTINE 21 MG/24 HR TDSY TD SCH (09:25)
[2023-02-11] MEDS: ENOXAPARIN INJ 40 MG/0.4 ML SYR SQ SCH (09:25)
[2023-02-11] MEDS: LOSARTAN POTASSIUM 50 MG TAB PO SCH (09:25)
[2023-02-11] MEDS: PANTOprazole 40 MG TAB PO SCH ×2 (09:26→20:12)
[2023-02-11] MEDS: METOPROLOL SUCC 25MG EXT REL TAB PO SCH (09:26)
[2023-02-11] MEDS: INSULIN ASPART PER UNIT CHARGE SC SCH ×4 (09:37→20:07)
[2023-02-11] MEDS: LANTUS PER UNIT CHARGE SQ SCH ×2 (09:38→20:08)
[2023-02-11] MEDS: LIDOCAINE 5% 1 PATCH TD SCH (10:52)
--- NOTE | 2023-02-11 12:48 | Hospitalist Progress Note ---
Date of Service February 11, 2023 Assessment & Plan (1) S/P laparoscopic appendectomy: Plan: Post op day# 1 S/P laparoscopic appendectomy by Dr Winston -Diet, DVT prophylaxis, activities and pain management per primary team pain (2) Abnormal urinalysis: Plan: Abnormal UA not strongly suggestive of UTI. No urinary symptoms. (3) Elevated liver function tests: Plan: Improving, AST normalized, ALT mildly elevated (4) Diabetes mellitus, type 2: Plan: A1c: 7.8 on 01/05/2023 -Basal bolus insulin per protocol (5) HTN (hypertension): Plan: - Continue losartan, metoprolol succinate (6) Restrictive lung disease: Plan: - Continue Symbicort (7) IBS (irritable bowel syndrome): (8) Gastroparesis: (9) GERD (gastroesophageal reflux disease): Plan: -Continue Pepcid, PPI, Bentyl (10) Obstructive sleep apnea: Plan: -CPAP with 2 L O2 at bedtime (11) Morbid obesity: Plan: -BMI 38 -Following up outpatient weight management and just recently started on Wegovy (12) Diabetic peripheral neuropathy associated with type 2 diabetes mellitus: Plan: - Continue gabapentin (13) Tobacco use: Plan: - Nicotine patch -Smoking cessation encouraged Plan Low back pain-suspect musculoskeletal. No red flag signs or cauda equina symptoms. Continue pain management-oxy as needed, Flexeril as needed, Lidocaine patch, gabapentin. If does not improve, consider back imaging for completeness. Hypokalemia-mild, repleted DVT Prophylaxis-Lovenox SQ Disposition per primary service Admission and Anticipated Discharge Date Admission Date: February 10, 2023 Subjective Patient was seen and examined at bedside. States he does not have much pain at the surgical site but his back is killing him and he cannot go home like this with pain. Complains of low back pain which he gets intermittently at home. No sciatica. No numbness, weakness, tingling, bowel or bladder issues. Normal oral intake. No nausea, or vomiting. Voiding without issues. Review of Systems Review of Systems: All systems reviewed & are unremarkable except as noted in Subjective Physical Exam Physical Exam: General: Lying in bed, not in acute distress, on room air HEENT: EOMI, URBANO, MMM Chest: Clear breath sounds bilaterally, no wheezes or crackles CVS: Regular rate and rhythm, normal heart sounds, no murmur Abdomen: Soft, non tender, not distended, normal bowel sounds Neuro: Awake, alert, oriented, conversing well, non focal Extremities: No cyanosis, clubbing or edema Skin: Abdominal incision site clean dry intact MSK: Mild tenderness on palpation of midline lower back and paraspinal areas bilaterally, however patient was able to change positions independently without issues and much discomfort during examination Results & Data Results & Data Vital Signs (Past 12 Hours) Vital Signs Temp Pulse Resp BP Pulse Ox O2 Del Method 02/11/23 07:16 36.8 C 118 H 20 162/76 H 93 Room Air 02/11/23 03:15 36.7 C 104 H 16 152/77 H 95 Room Air Laboratory Results Short CBC 02/11/23 Range/Units 05:59 WBC 11.37 H (4.8-10.8) K/ul Hgb 12.9 L (14.0-18.0) g/dl Hct 39.0 L (42.0-52.0) % Plt Count 256 (130-400) K/uL BMP 02/11/23 05:59 Sodium 138 Potassium 3.4 L Chloride 102 Carbon Dioxide 27 BUN 17 Creatinine 0.88 Glucose 135 H Calcium 9.1 Liver Function 02/11/23 Range/Units 05:59 Total Bilirubin 1.0 (0.2-1.0) mg/dl AST 39 (13-39) U/L ALT 78 H (7-52) U/L Alkaline Phosphatase 66 (34-104) U/L Albumin 4.2 (3.4-5.0) gm/dl Urine 02/10/23 Range/Units 13:15 Urine Color Dark Yellow Urine Appearance Cloudy A (Clear) Urine pH 5.0 (4.5-7.5) Ur Specific [place] 1.040 H (1.000-1.030) Urine Protein 4+ H (Negative) Urine Glucose (UA) 3+ H (Negative) Medications Administered Current Inpatient Medications Cyclobenzaprine HCl (Cyclobenzaprine Hcl 10 Mg Tab) 10 mg PO TID PRN PRN Reason: Muscle Spasm Stop: 03/13/23 09:11 Dextrose (Dextrose 50% 50 Ml Syringe) 25 - 50 ml IV UD PRN; Protocol PRN Reason: Hypoglycemia Protocol Stop: 03/12/23 19:07 Dicyclomine HCl (Dicyclomine Hcl 10 Mg Cap) 10 mg PO QID PRN PRN Reason: abdominal cramping Stop: 03/12/23 19:05 Diphenhydramine HCl (Diphenhydramine Capsule 25 Mg Cap) 25 mg PO Q4H PRN PRN Reason: hives, itching or insomnia Stop: 03/12/23 17:55 Docusate Sodium (Docusate Sodium 100 Mg Cap) 100 mg PO BID [facility] Stop: 03/12/23 20:59 Last Admin: 02/11/23 09:24 Dose: 100 mg Enoxaparin Sodium (Enoxaparin Inj 40 Mg/0.4 Ml Syr) 40 mg SQ Q24H [facility] Stop: 03/13/23 07:59 Last Admin: 02/11/23 09:25 Dose: 40 mg Famotidine (Famotidine 20 Mg Tab) 20 mg PO HS [facility] Stop: 03/12/23 20:59 Last Admin: 02/10/23 21:21 Dose: 20 mg Fluticasone/Vilanterol (Fluticasone/Vilanterol 100/25mcg 14 Puffs/Inhaler) 1 puffs INH DAILY [facility] Stop: 03/13/23 08:59 Last Admin: 02/11/23 09:22 Dose: 1 puffs Gabapentin (Gabapentin 100 Mg Cap) 200 mg PO HS [facility] Stop: 03/12/23 20:59 Last Admin: 02/10/23 21:22 Dose: 200 mg Gabapentin (Gabapentin 100 Mg Cap) 100 mg PO QAM [facility] Stop: 03/13/23 08:59 Last Admin: 02/11/23 09:25 Dose: 100 mg Glucagon (Glucagon For Inj 1 Mg Vial) 1 mg SQ UD PRN; Protocol PRN Reason: Hypoglycemia Protocol Stop: 03/12/23 19:07 Glucose (Glucose 10 Tab/Tube) 4 - 8 tab PO UD PRN; Protocol PRN Reason: Hypoglycemia Treatment Stop: 03/12/23 19:07 Glucose (Glucose 40% Gel 15 Gm Tube) 15 - 30 gm PO UD PRN; Protocol PRN Reason: Hypoglycemia Protocol Stop: 03/12/23 19:07 Promethazine HCl 12.5 mg/ (Sodium Chloride) 50.5 mls @ 204 mls/hr IV Q6H PRN PRN Reason: Nausea And Vomiting Stop: 03/12/23 17:55 Insulin Aspart (Insulin Aspart Per Unit Charge) 0 units SC ACHS [facility] Stop: 03/12/23 20:59 Last Admin: 02/11/23 09:37 Dose: 2 units Insulin Glargine (Lantus Per Unit Charge) 0 - 25 units SQ BID [facility] Stop: 03/12/23 20:59 Last Admin: 02/11/23 09:38 Dose: 25 units Ketorolac Tromethamine (Ketorolac 30 Mg/Ml Vial) 30 mg IV Q6H PRN PRN Reason: Pain & Pre PT Stop: 02/15/23 17:55 Lidocaine (Lidocaine 5% 1 Patch) 1 patch TD QAM [facility] Stop: 03/13/23 10:29 Last Admin: 02/11/23 10:52 Dose: 1 patch Losartan Potassium (Losartan Potassium 50 Mg Tab) 50 mg PO QAM [facility] Stop: 03/13/23 08:59 Last Admin: 02/11/23 09:25 Dose: 50 mg Metoprolol Succinate (Metoprolol Succ 25mg Ext Rel Tab) 75 mg PO DAILY [facility] Stop: 03/13/23 08:59 Last Admin: 02/11/23 09:26 Dose: 75 mg Miscellaneous (Remove Nicoderm Patch) 1 each N/A DAILY@0859 [facility] Stop: 03/13/23 08:58 Last Admin: 02/11/23 09:28 Dose: 1 each Miscellaneous (Carbohydrates For Hypoglycemia ) 15 - 30 gm PO UD PRN PRN Reason: Hypoglycemia Protocol Stop: 03/12/23 19:07 Miscellaneous (Remove Lidoderm Patch) 1 each N/A DAILY@2100 [facility] Stop: 03/13/23 20:59 Morphine Sulfate (Morphine Sulfate 2 Mg/Ml Carp) 2 mg IV Q3H PRN PRN Reason: Severe Pain (Scale 7, 8, 9,10) Stop: 02/24/23 17:55 Last Admin: 02/11/23 10:41 Dose: 2 mg Nicotine (Nicotine 21 Mg/24 Hr Tdsy) 21 mg TD QAM [facility] Stop: 03/12/23 18:59 Last Admin: 02/11/23 09:25 Dose: 21 mg Ondansetron HCl (Ondansetron Inj 2 Mg/Ml 2 Ml Vial) 4 mg IV Q4H PRN PRN Reason: Nausea And Vomiting Stop: 03/12/23 17:55 Last Admin: 02/11/23 06:43 Dose: 4 mg Oxycodone/Acetaminophen (Oxycodone/Acetaminophen 5mg/325mg Tab) 1 tab PO Q4H PRN PRN Reason: MODERATE Pain (4,5,6) & Pre PT Stop: 02/24/23 17:55 Last Admin: 02/11/23 05:34 Dose: 1 tab Pantoprazole Sodium (Pantoprazole 40 Mg Tab) 40 mg PO BID [facility] Stop: 03/12/23 20:59 Last Admin: 02/11/23 09:26 Dose: 40 mg Polyethylene Glycol (Polyethylene (Miralax) 17 Gm Pack) 17 gm PO DAILY PRN PRN Reason: Constipation Stop: 03/12/23 19:04
--- NOTE | 2023-02-11 17:03 | Surgery Progress Note ---
Date of Service February 11, 2023 Assessment & Plan (1) Acute appendicitis: Plan: POD # 1 s/p laparscopic appendectomy avss moderate postop pain at incisions but severe low back pain + nausea no vomiting tolerating some food intake ? muscle spasm, chronic low back pain Plan: Will give one time dose of Toradol and muscle relaxant now, resume home muscle relaxer prn muscle spasm at bedtime Continue percocet prn pain IV Morphine for severe pain continue reg diet ambulate hopefully home tomorrow Dr. Winston has seen patient and agrees with above. Admission and Anticipated Discharge Date Admission Date: February 10, 2023 Subjective patient seen this morning complaining of severe lower back pain, cannot get comfortable looking at his breakfast caused nausea abdominal pain at incision sites, mild to moderate no vomiting Physical Exam Constitutional: WD/WN, vitals as above + obese and cooperative; no acute distress, not ill appearing and + uncomfortable Not in distress but looks uncomfortable, cannot lay still in the bed due to low back pain Respiratory: normal respiratory effort; no respiratory distress Gastrointestinal (Abdomen): Inspection/Auscultation: abdomen normal to inspection and + abdominal surgical incision (clean/dry/intact with dermabond); abdomen not distended Percussion/Palpation: + abdomen tender (at incision sites) and abdomen soft; no guarding and abdomen not rigid Musculoskeletal: No CVA tenderness There is tenderness of the paraspinal muscles bilaterally on palpation. Skin: no rashes, warm and dry Psychiatric: Orientation: alert and oriented x 3 Results & Data Vital Signs (Past 12 Hours) Vital Signs Temp Pulse Pulse Resp BP Pulse Ox O2 Del Method 02/11/23 15:08 36.8 C 104 H 18 148/81 H 93 Room Air 02/11/23 07:16 36.8 C 118 H 20 162/76 H 93 Room Air Laboratory Results 02/11/23 02/11/23 02/11/23 Range/Units 12:01 08:20 05:59 WBC (4.8-10.8) K/ul RBC (4.70-6.10) M/uL Hgb (14.0-18.0) g/dl Hct (42.0-52.0) % MCV (80.0-100.0) fL MCH (25.0-34.0) pg MCHC (32.0-36.0) g/dL RDW Std Deviation (36.4-46.3) fL RDW Coeff of Abiodun (11.5-14.5) % Plt Count (130-400) K/uL MPV (9.4-12.4) fL Immature Gran % (Auto) % Neut % (Auto) % Lymph % (Auto) % [place] % (Auto) % Eos % (Auto) % Baso % (Auto) % Neut # (Auto) (1.40-6.50) K/uL Lymph # (Auto) (1.2-3.4) K/uL [place] # (Auto) (0.11-0.59) K/uL Eos # (Auto) (0-0.50) K/uL Baso # (Auto) (0-0.2) K/uL Immature Gran # (Auto) (0.01-0.20) K/uL Sodium 138 (136-145) mmol/L Potassium 3.4 L (3.5-5.1) mmol/L Chloride 102 (98-107) mmol/L Carbon Dioxide 27 (21-32) mmol/L Anion Gap 9 (3-11) BUN 17 (6-23) mg/dl Creatinine 0.88 (0.6-1.4) mg/dl Est Cr Clr Drug Dosing 152.7 ml/min Est GFR ( Amer) 116.9 ml/min Est GFR (Non-Af Amer) 100.9 ml/min BUN/Creatinine Ratio 19.3 (10-20) Glucose 135 H (70-99(Fasting)) mg/dl POC Glucose 132 H 181 H (70-99) mg/dl Calcium 9.1 (8.6-10.3) mg/dl Total Bilirubin 1.0 (0.2-1.0) mg/dl AST 39 (13-39) U/L ALT 78 H (7-52) U/L Alkaline Phosphatase 66 (34-104) U/L Total Protein 7.3 (6.0-8.3) gm/dl Albumin 4.2 (3.4-5.0) gm/dl Globulin 3.1 (2.5-4.0) gm/dl Albumin/Globulin Ratio 1.4 (0.9-2) 02/11/23 02/10/23 02/10/23 Range/Units 05:59 20:52 17:00 WBC 11.37 H (4.8-10.8) K/ul RBC 4.70 (4.70-6.10) M/uL Hgb 12.9 L (14.0-18.0) g/dl Hct 39.0 L (42.0-52.0) % MCV 83.0 (80.0-100.0) fL MCH 27.4 (25.0-34.0) pg MCHC 33.1 (32.0-36.0) g/dL RDW Std Deviation 40.5 (36.4-46.3) fL RDW Coeff of Abiodun 13.3 (11.5-14.5) % Plt Count 256 (130-400) K/uL MPV 9.2 L (9.4-12.4) fL Immature Gran % (Auto) 0.6 % Neut % (Auto) 59.9 % Lymph % (Auto) 27.7 % [place] % (Auto) 9.9 % Eos % (Auto) 1.5 % Baso % (Auto) 0.4 % Neut # (Auto) 6.80 H (1.40-6.50) K/uL Lymph # (Auto) 3.15 (1.2-3.4) K/uL [place] # (Auto) 1.13 H (0.11-0.59) K/uL Eos # (Auto) 0.17 (0-0.50) K/uL Baso # (Auto) 0.05 (0-0.2) K/uL Immature Gran # (Auto) 0.07 (0.01-0.20) K/uL Sodium (136-145) mmol/L Potassium (3.5-5.1) mmol/L Chloride (98-107) mmol/L Carbon Dioxide (21-32) mmol/L Anion Gap (3-11) BUN (6-23) mg/dl Creatinine (0.6-1.4) mg/dl Est Cr Clr Drug Dosing ml/min Est GFR ( Amer) ml/min Est GFR (Non-Af Amer) ml/min BUN/Creatinine Ratio (10-20) Glucose (70-99(Fasting)) mg/dl POC Glucose 172 H 168 H (70-99) mg/dl Calcium (8.6-10.3) mg/dl Total Bilirubin (0.2-1.0) mg/dl AST (13-39) U/L ALT (7-52) U/L Alkaline Phosphatase (34-104) U/L Total Protein (6.0-8.3) gm/dl Albumin (3.4-5.0) gm/dl Globulin (2.5-4.0) gm/dl Albumin/Globulin Ratio (0.9-2)
[2023-02-11] MEDS: FAMOTIDINE 20 MG TAB PO SCH (20:13)
--- NOTE | 2023-02-11 23:15 | Electrocardiogram Report ---
Test Reason : Blood Pressure : / mmHG Vent. Rate : 111 BPM Atrial Rate : 111 BPM P-R Int : 152 ms QRS Dur : 114 ms QT Int : 356 ms P-R-T Axes : 062 074 065 degrees QTc Int : 484 ms Sinus tachycardia Otherwise normal ECG When compared with ECG of 10-FEB-2023 11:13, Incomplete right bundle branch block is no longer Present Criteria for Lateral infarct are no longer Present Confirmed by Brandin Guerra ([id number]) on 02/11/2023 11:15:10 PM Referred By: REFERRED SELF Confirmed By:Brandin Guerra
[2023-02-12] MEDS: MoRPHine SULFATE 2 MG/ML CARP IV PRN (05:56)
[2023-02-12] MEDS: INSULIN ASPART PER UNIT CHARGE SC SCH ×4 (08:52→21:00)
[2023-02-12] MEDS: NICOTINE 21 MG/24 HR TDSY TD SCH (08:53)
[2023-02-12] MEDS: LIDOCAINE 5% 1 PATCH TD SCH (08:53)
[2023-02-12] MEDS: DOCUSATE SODIUM 100 MG CAP PO SCH (08:54)
[2023-02-12] MEDS: FLUTICASONE/VILANTEROL 100/25MCG 14 PUFFS/INHALER INH SCH (08:54)
[2023-02-12] MEDS: PANTOprazole 40 MG TAB PO SCH ×2 (08:54→21:01)
[2023-02-12] MEDS: LOSARTAN POTASSIUM 50 MG TAB PO SCH (08:54)
[2023-02-12] MEDS: ENOXAPARIN INJ 40 MG/0.4 ML SYR SQ SCH (08:54)
[2023-02-12] MEDS: GABAPENTIN 100 MG CAP PO SCH ×2 (08:54→21:02)
[2023-02-12] MEDS: METOPROLOL SUCC 25MG EXT REL TAB PO SCH (08:54)
[2023-02-12] MEDS: oxyCODONE/ACETAMINOPHEN 5mg/325mg TAB PO PRN ×3 (08:58→22:30)
[2023-02-12] MEDS: LANTUS PER UNIT CHARGE SQ SCH ×2 (09:07→20:58)
[2023-02-12] MEDS ORDERED: FAMOTIDINE 20 MG in SYRINGE 3 ML IV SCH (10:00)
[2023-02-12 10:24] LABS: Basophils # (auto) 0.06 K/uL (0-0.2); Basophils % (auto) 0.9 %; Eosinophils # (auto) 0.15 K/uL (0-0.50); Eosinophils % (auto) 2.2 %; Hematocrit (blood only) 39.2 % (42.0-52.0); Hemoglobin 13.1 g/dl (14.0-18.0); Immature Granulocytes # (auto) 0.04 K/uL (0.01-0.20); Immature Granulocytes % (auto) 0.6 %; Lymphocytes # (auto) 2.29 K/uL (1.2-3.4); Lymphocytes % (auto) 34.2 %; Mean Corpuscular Hemoglobin 27.6 pg (25.0-34.0); Mean Corpuscular Hgb Conc 33.4 g/dL (32.0-36.0); Mean Corpuscular Volume 82.7 fL (80.0-100.0); Mean Platelet Volume 9.1 fL (9.4-12.4); Monocytes # (auto) 0.56 K/uL (0.11-0.59); Monocytes % (auto) 8.4 %; Neutrophils % (auto) 53.7 %; Platelet Count 234 K/uL (130-400); RDW Coefficient of Variation 13.1 % (11.5-14.5); RDW Standard Deviation 39.1 fL (36.4-46.3); Red Blood Count 4.74 M/uL (4.70-6.10)
[2023-02-12 10:57] LABS: Calcium 9.1 mg/dl (8.6-10.3)
[2023-02-12 11:02] LABS: Est GFR (African American) 124.2 ml/min
[2023-02-12 11:03] LABS: BUN Creatinine Ratio 21.1 (10-20); Creatinine Clr Calc Pharmacy 176.8 ml/min; Est GFR (Non-African American) 107.1 ml/min
--- NOTE | 2023-02-12 11:21 | Surgery Progress Note ---
Date of Service February 12, 2023 Assessment & Plan (1) Acute appendicitis: Plan: POD # 2 s/p laparscopic appendectomy avss mild postop pain at incisions + nausea no vomiting no leukocytosis (2) Epigastric abdominal pain: Plan: pain immediately after eating with associated nausea epigastric pain on exam History of GERD, takes daily NSAIDs for chronic pain arthritis for years takes Protonix and Famotidine at home Plan: Given that he is complaining of pain after eating and nausea and unable to eat will consult GI LIkely will need outpatient GI follow-up and work-up will add Carafate QID continue diet (3) Nausea: (4) Chronic low back pain: Plan: Chronic Continue gabapentin and flexeril and pain management Plan Hopeful plan for discharge this evening once GI consulted Dr. Winston has seen patient and agrees with above. Admission and Anticipated Discharge Date Admission Date: February 10, 2023 Subjective upon entering room patient seems to be comfortable lying in bed facing window when asked how he is doing says horrible, still having pain in upper abdomen and low back. Cannot eat anything without pain or nausea. Incision sites with mild soreness no vomiting no fevers or chills Physical Exam Constitutional: WD/WN, vitals as above + obese and cooperative; no acute distress and not ill appearing Respiratory: normal respiratory effort; no respiratory distress Gastrointestinal (Abdomen): Inspection/Auscultation: abdomen normal to inspection and + abdominal surgical incision (c/d/i with intact dermabond); abdomen not distended Percussion/Palpation: + abdomen tender (epigastrium , minimal tenderness at incision sites) and abdomen soft; no guarding and abdomen not rigid Skin: no rashes, warm and dry Psychiatric: Orientation: alert and oriented x 3 Results & Data Vital Signs (Past 12 Hours) Vital Signs Temp Pulse Resp BP Pulse Ox O2 Del Method 02/12/23 07:24 36.7 C 109 H 18 167/89 H 95 Room Air Laboratory Results 02/12/23 02/12/23 02/12/23 Range/Units 09:56 09:56 07:35 WBC 6.70 (4.8-10.8) K/ul RBC 4.74 (4.70-6.10) M/uL Hgb 13.1 L (14.0-18.0) g/dl Hct 39.2 L (42.0-52.0) % MCV 82.7 (80.0-100.0) fL MCH 27.6 (25.0-34.0) pg MCHC 33.4 (32.0-36.0) g/dL RDW Std Deviation 39.1 (36.4-46.3) fL RDW Coeff of Abiodun 13.1 (11.5-14.5) % Plt Count 234 (130-400) K/uL MPV 9.1 L (9.4-12.4) fL Immature Gran % (Auto) 0.6 % Neut % (Auto) 53.7 % Lymph % (Auto) 34.2 % [place] % (Auto) 8.4 % Eos % (Auto) 2.2 % Baso % (Auto) 0.9 % Neut # (Auto) 3.60 (1.40-6.50) K/uL Lymph # (Auto) 2.29 (1.2-3.4) K/uL [place] # (Auto) 0.56 (0.11-0.59) K/uL Eos # (Auto) 0.15 (0-0.50) K/uL Baso # (Auto) 0.06 (0-0.2) K/uL Immature Gran # (Auto) 0.04 (0.01-0.20) K/uL Sodium 138 (136-145) mmol/L Potassium 4.0 (3.5-5.1) mmol/L Chloride 103 (98-107) mmol/L Carbon Dioxide 26 (21-32) mmol/L Anion Gap 9 (3-11) BUN 16 (6-23) mg/dl Creatinine 0.76 (0.6-1.4) mg/dl Est Cr Clr Drug Dosing 176.8 ml/min Est GFR ( Amer) 124.2 ml/min Est GFR (Non-Af Amer) 107.1 ml/min BUN/Creatinine Ratio 21.1 H (10-20) Glucose 136 H (70-99(Fasting)) mg/dl POC Glucose 137 H (70-99) mg/dl Calcium 9.1 (8.6-10.3) mg/dl 02/11/23 02/11/23 02/11/23 Range/Units 20:07 17:00 12:01 WBC (4.8-10.8) K/ul RBC (4.70-6.10) M/uL Hgb (14.0-18.0) g/dl Hct (42.0-52.0) % MCV (80.0-100.0) fL MCH (25.0-34.0) pg MCHC (32.0-36.0) g/dL RDW Std Deviation (36.4-46.3) fL RDW Coeff of Abiodun (11.5-14.5) % Plt Count (130-400) K/uL MPV (9.4-12.4) fL Immature Gran % (Auto) % Neut % (Auto) % Lymph % (Auto) % [place] % (Auto) % Eos % (Auto) % Baso % (Auto) % Neut # (Auto) (1.40-6.50) K/uL Lymph # (Auto) (1.2-3.4) K/uL [place] # (Auto) (0.11-0.59) K/uL Eos # (Auto) (0-0.50) K/uL Baso # (Auto) (0-0.2) K/uL Immature Gran # (Auto) (0.01-0.20) K/uL Sodium (136-145) mmol/L Potassium (3.5-5.1) mmol/L Chloride (98-107) mmol/L Carbon Dioxide (21-32) mmol/L Anion Gap (3-11) BUN (6-23) mg/dl Creatinine (0.6-1.4) mg/dl Est Cr Clr Drug Dosing ml/min Est GFR ( Amer) ml/min Est GFR (Non-Af Amer) ml/min BUN/Creatinine Ratio (10-20) Glucose (70-99(Fasting)) mg/dl POC Glucose 95 105 H 132 H (70-99) mg/dl Calcium (8.6-10.3) mg/dl
--- NOTE | 2023-02-12 11:59 | Gastrointestinal Consultation ---
Date of Consultation February 12, 2023 Assessment & Plan (1) Epigastric abdominal pain: (2) Nausea: Pt is a 47 yo male, admitted w appendicitis, s/p lap appy on 02/10; seen for c/o nausea and epigastric pain. Hx of gastroparesis, esophagitis, gastric ulcer, was using NSAIDs for HAs at home. DDx: PUD, gastritis, gastroparesis, IBS flare. - Obtain KUB to eval stool burden - PPI BID + Carafate 1g QID - Trial Reglan 5mg IV BID - Bowel regimen as ordered - Antiemetics prn n/v - CL diet; advance as tolerated - OP evaluation with repeat EGD and repeat GES Supervising Physician Co-Signing Physician Notes I performed a history and physical examination of the patient today, including specifically on physical exam - soft abdomen. I have discussed the patient's management with the advanced practitioner. Please refer to the nurse boby thomas's note for the documented findings and plan of care. s/p Lap Appendectomy. Hx of Gastroparesis. Supportive care for now. Recommend: PPI and Carafate. OP EGD and GES. Recall GI if needed. History of Present Illness Reason for Consultation: Epigastric pain, nausea Requesting Physician: Dr. Adarsh Winston Attending Physician: Dr. Jenny Sosa History of Present Illness Pt is a 47 yo male PMHx of DM II, gastroparesis, IBS, HTN, Dyslipidemia, DAMION, cellulitis, gastric ulcer, esophagitis who presented w appendicitis s/p appendectomy on 02/10/2023. GI consulted today as pt report he's having nausea and epigastric abd pain which started 5 days ago. He feels nauseated as soon as he sees food. Tolerate drinking liquids. Has constant epigastric pain that radia caitlin to lower back. Last BM 2 days ago, small, no rectal bleeding. Admission abd imaing studies w CT and US reviewed: hepatic steatosis, no gallstones, nor signs of gallbladder wall thickening, no signs of biliary ductal dilation. LFTs & lipase unremarkable. Hx of NSAIDs uses for HAs. Is a smoker, denies tobacco or illicit drugs. Previous EGD (last done in 2019) and colonoscopy (last done in 2014) reports reviewed - hx of gastric ulcer, esophagitis, food residue in stomach, colon polyp. Allergies Allergy/AdvReac Type Severity Reaction Status Date / Time Cephalosporins Allergy Unknown Unknown Verified 02/10/23 15:26 NSAIDS (Non-Steroidal AdvReac Intermediate gastroparesis, Verified 02/10/23 15:26 Anti-Inflamma kidney problems empagliflozin AdvReac Unknown Unknown Verified 02/10/23 15:26 [From Jardiance] Home Medications Medication Instructions Recorded Confirmed Type insulin aspart U-100 100 unit/mL 16 unit subcut TIDM 06/09/19 02/10/23 History (3 mL) subcutaneous pen (Novolog FlexPen U-100 Insulin aspart) dicyclomine 10 mg capsule 10 mg PO QID PRN Diarrhea 05/01/20 02/10/23 History famotidine 20 mg tablet 20 mg PO HS 07/13/20 02/10/23 History docusate sodium 100 mg capsule 100 mg PO BID PRN Constipation 02/25/21 02/10/23 History (Col-Rite) pantoprazole 40 mg tablet,delayed 40 mg PO BID 02/25/21 02/10/23 History release losartan 50 mg tablet 50 mg PO QAM 08/26/21 02/10/23 History metformin 500 mg tablet 1,000 mg PO BID 08/26/21 02/10/23 History cyclobenzaprine 10 mg tablet 10 mg PO HS PRN Muscle Spasm 09/06/22 02/10/23 History gabapentin 100 mg capsule 100 mg PO QAM 09/06/22 02/10/23 History gabapentin 100 mg capsule 200 mg PO HS 09/06/22 02/10/23 History insulin glargine 100 unit/mL (3 25 unit subcut QAM 09/06/22 02/10/23 History mL) subcutaneous pen (Lantus Solostar U-100 Insulin) insulin glargine 100 unit/mL (3 34 unit subcut HS 09/06/22 02/10/23 History mL) subcutaneous pen (Lantus Solostar U-100 Insulin) metoclopramide HCl 10 mg tablet 10 mg PO TIDM 09/06/22 02/10/23 History budesonide-formoterol HFA 80 2 puff inhalation AMHS 02/08/23 02/10/23 History mcg-4.5 mcg/actuation aerosol inhaler (Symbicort) metoprolol succinate 50 mg 75 mg PO DAILY 02/08/23 02/10/23 History tablet,extended release 24 hr semaglutide (weight loss) 1.7 1.7 mg subcut WK 02/08/23 02/10/23 History mg/0.75 mL subcutaneous pen injector (Shakirvsarita) Patient History Medical History (Updated 02/12/23 @ 11:18 by Devora Carvalho PA-C) Acquired deviated nasal septum Cardiac murmur A CHILD Encounter for pre-operative examination Erectile dysfunction Esophagitis GERD (gastroesophageal reflux disease) History of DVT (deep vein thrombosis) History of ventricular tachycardia "nonsustained" Hx of pancreatitis resolved IBS (irritable bowel syndrome) Intellectual disability MRSA (methicillin resistant Staphylococcus aureus) carrier over 2 yrs ago Obesity Obstructive sleep apnea no cpap Osteoarthritis Restrictive lung disease Tobacco use Tussive syncope Surgical History (Updated 02/10/23 @ 19:25 by Jolene Ruano PA-C) H/O foot surgery LEFT-2018 History of appendectomy 02/10/2023 History of arthroscopy LEFT [id number] History of colonoscopy History of esophagogastroduodenoscopy (EGD) History of nasal septoplasty 09/25/21-Dr. Garcia History of reduction of nasal fracture 09/25/21-Dr. Garcia History of shoulder surgery right-2019 History of tonsillectomy and adenoidectomy 1979 History of tooth extraction Status post incision and drainage LLE Family History Brother Family history of diabetes mellitus Environmental allergies Asthma Mother Family history of diabetes mellitus Hypertension Environmental allergies Father Family history of diabetes mellitus Hypertension Heart disease Grandfather (Paternal) Lung cancer smoker Aunt Bleeding disorder Other No family history of adverse response to anesthesia Social History Smoking Status: Current every day smoker Tobacco Type: Cigarettes Age Started Using Tobacco: 14; Cigarettes Per Day: 30-40; Second Hand Exposure: Yes; Do You Dip or Chew Tobacco: No; Hx Alcohol Use: No Hx Substance Use: No Preferred Language: Danish Communication Ability: Effective Brush Painter Required: No Beliefs That Will Affect Care: None marital status: / marital status details: single at this time Current Living Situation: Significant Other Current Living Situation Comment: house current occupational status: employed 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 other: girlfriend able to assist with dressing changes and care as needed Feels Safe at Home: Yes during the past year weight has: remained stable Assistive Devices: None Review of Systems Review of Systems: All systems reviewed & are unremarkable except as noted in HPI & below Physical Exam Constitutional: WD/WN, vitals as above well groomed, cooperative and comfortable Eyes: PERRL, conjunctivae normal, anicteric sclerae ENMT: external ear and nose normal, oropharynx normal Respiratory: normal respiratory effort, lungs clear to auscultation Cardiovascular: RRR, no murmur, no edema Chest (Breasts): Additional Comments: + TTP epigastric, RLQ areas, Soft, BS present. Gastrointestinal (Abdomen): normal bowel sounds, soft, nontender, no hepatosplenomegaly Skin: no rashes, warm and dry no jaundice Psychiatric: A+Ox3, euthymic affect Lymphatic: no lymphedema Results & Data Vital Signs (Past 12 Hours) Vital Signs Temp Pulse Resp BP Pulse Ox O2 Del Method 02/12/23 07:24 36.7 C 109 H 18 167/89 H 95 Room Air
--- NOTE | 2023-02-12 14:39 | Hospitalist Progress Note ---
Date of Service February 12, 2023 Assessment & Plan (1) S/P laparoscopic appendectomy: Plan: Post op day#2 S/P laparoscopic appendectomy by Dr Winston -Diet, DVT prophylaxis, activities and pain management per primary team pain -pt c/o epigastric abd pain, already on PPI and pepcid, surgery added carafate GI consult - IV reglan 5mg BID, KUB to monitor stool burden (2) Abnormal urinalysis: Plan: Abnormal UA not strongly suggestive of UTI. No urinary symptoms. Culture negative (3) Elevated liver function tests: Plan: Improving, AST normalized, ALT mildly elevated (4) Diabetes mellitus, type 2: Plan: A1c: 7.8 on 01/05/2023 -Basal bolus insulin per protocol (5) HTN (hypertension): Plan: - Continue losartan, metoprolol succinate bp elevated while inpt may be in setting of pain 167/89 continue to monitor, labile, could consider increasing losartan if continues (6) Restrictive lung disease: Plan: - Continue Symbicort (7) IBS (irritable bowel syndrome): (8) Gastroparesis: (9) GERD (gastroesophageal reflux disease): Plan: -Continue Pepcid, PPI, Bentyl (10) Obstructive sleep apnea: Plan: -CPAP with 2 L O2 at bedtime (11) Morbid obesity: Plan: -BMI 38 -Following up outpatient weight management and just recently started on Wegovy (12) Diabetic peripheral neuropathy associated with type 2 diabetes mellitus: Plan: - Continue gabapentin (13) Tobacco use: Plan: - Nicotine patch -Smoking cessation encouraged Plan Low back pain-suspect musculoskeletal. No red flag signs or cauda equina symptoms. Continue pain management-oxy as needed, Flexeril as needed, Lidocaine patch, gabapentin. POA Hypokalemia-mild, repleted DVT Prophylaxis-Lovenox SQ Disposition per primary service A total of 40 minutes was spent with greater than 50% of that time personally viewing all current laboratory work and diagnostic imaging studies obtained in the ED. Additionally, I was able to view the patients past medication reconciliation and history with direct visualization in the patients chart. Included in the time above, a portion of that time was spent assessing the patient while discussing and collaborating with specialists, if necessary, and making medical decision making on treatment plan. All of the above was collaborated with Dr. Camara. Please see addendum for further details. Admission and Anticipated Discharge Date Admission Date: February 10, 2023 Supervising Physician Co-Signing Physician Notes Patient was seen and examined independently at bedside. Chart reviewed. Case discussed with Hannah AYALA and agree with the documentation above with regards to history, physical exam and assessment and plan. In summary, this is a 47-year-old male who was admitted under surgery service for appendicitis and is status post laparoscopic appendectomy. He seems to be recovering as expected from surgical standpoint, however complains of acute on chronic low back pain suspect musculoskeletal and is on conservative management. Also complained of epigastric pain and is seen by GI with outpatient plans for repeat EGD and GES noted. Patient states he is in horrible pain but looks very comfortable and was able to quickly change positions without any distress. There seems to be some disconnect. Rest as per the note above. Subjective Patient was seen and examined in room 377-2. Follow-up status post appendectomy, back pain and epigastric abdominal pain. Continues to have low back pain but is similar to prior to hospitalization. Currently complaining of unable to eat due to epigastric discomfort and nausea. Denies fever, chills, sweats, lightheadedness, dizziness, chest pain, shortness of breath, cough, vomitin g or diarrhea. Epigastric abdominal pain seems to occur immediately after eating. He states he is already on Pepcid. Review of Systems Review of Systems: All systems reviewed & are unremarkable except as noted in HPI & below Physical Exam Physical Exam: Gen: Obese, male, lying in bed and appears in no acute distress, WD/WN, NAD, A&O x3 HEENT: Normocephalic, atraumatic, conjunctivae moist, sclerae anicteric, mucous membranes moist. Absent dentition Lung: Clear to Auscultation bilaterally, no wheezes/rales/rhonchi Heart: Regular rate, regular rhythm, no murmurs, rubs, or gallops Abdomen: Soft, obese, incisions noted, CDI, tender in epigastrium, no surrounding erythema, ND +BS x 4 Extremities: No edema Skin: Warm, no rash, negative turgor. Results & Data Results & Data Vital Signs (Past 12 Hours) Vital Signs Temp Pulse Resp BP Pulse Ox O2 Del Method 02/12/23 07:24 36.7 C 109 H 18 167/89 H 95 Room Air Laboratory Results Short CBC 02/12/23 Range/Units 09:56 WBC 6.70 (4.8-10.8) K/ul Hgb 13.1 L (14.0-18.0) g/dl Hct 39.2 L (42.0-52.0) % Plt Count 234 (130-400) K/uL BMP 02/12/23 09:56 Sodium 138 Potassium 4.0 Chloride 103 Carbon Dioxide 26 BUN 16 Creatinine 0.76 Glucose 136 H Calcium 9.1 Medications Administered Current Inpatient Medications Cyclobenzaprine HCl (Cyclobenzaprine Hcl 10 Mg Tab) 10 mg PO TID PRN PRN Reason: Muscle Spasm Stop: 03/13/23 09:11 Last Admin: 02/12/23 07:32 Dose: 10 mg Dextrose (Dextrose 50% 50 Ml Syringe) 25 - 50 ml IV UD PRN; Protocol PRN Reason: Hypoglycemia Protocol Stop: 03/12/23 19:07 Dicyclomine HCl (Dicyclomine Hcl 10 Mg Cap) 10 mg PO QID PRN PRN Reason: abdominal cramping Stop: 03/12/23 19:05 Diphenhydramine HCl (Diphenhydramine Capsule 25 Mg Cap) 25 mg PO Q4H PRN PRN Reason: hives, itching or insomnia Stop: 03/12/23 17:55 Enoxaparin Sodium (Enoxaparin Inj 40 Mg/0.4 Ml Syr) 40 mg SQ Q24H SOPHIA Stop: 03/13/23 07:59 Last Admin: 02/12/23 08:54 Dose: 40 mg Famotidine (Famotidine 20 Mg Tab) 20 mg PO HS SOPHIA Stop: 03/12/23 20:59 Last Admin: 02/11/23 20:13 Dose: 20 mg Fluticasone/Vilanterol (Fluticasone/Vilanterol 100/25mcg 14 Puffs/Inhaler) 1 puffs INH DAILY SOPHIA Stop: 03/13/23 08:59 Last Admin: 02/12/23 08:54 Dose: 1 puffs Gabapentin (Gabapentin 100 Mg Cap) 200 mg PO HS SOPHIA Stop: 03/12/23 20:59 Last Admin: 02/11/23 20:12 Dose: 200 mg Gabapentin (Gabapentin 100 Mg Cap) 100 mg PO QAM SOPHIA Stop: 03/13/23 08:59 Last Admin: 02/12/23 08:54 Dose: 100 mg Glucagon (Glucagon For Inj 1 Mg Vial) 1 mg SQ UD PRN; Protocol PRN Reason: Hypoglycemia Protocol Stop: 03/12/23 19:07 Glucose (Glucose 10 Tab/Tube) 4 - 8 tab PO UD PRN; Protocol PRN Reason: Hypoglycemia Treatment Stop: 03/12/23 19:07 Glucose (Glucose 40% Gel 15 Gm Tube) 15 - 30 gm PO UD PRN; Protocol PRN Reason: Hypoglycemia Protocol Stop: 03/12/23 19:07 Promethazine HCl 12.5 mg/ (Sodium Chloride) 50.5 mls @ 204 mls/hr IV Q6H PRN PRN Reason: Nausea And Vomiting Stop: 03/12/23 17:55 Insulin Aspart (Insulin Aspart Per Unit Charge) 0 units SC ACHS [facility] Stop: 03/12/23 20:59 Last Admin: 02/12/23 12:47 Dose: Not Given Insulin Glargine (Lantus Per Unit Charge) 0 - 25 units SQ BID [facility] Stop: 03/12/23 20:59 Last Admin: 02/12/23 09:07 Dose: 25 units Ketorolac Tromethamine (Ketorolac 30 Mg/Ml Vial) 30 mg IV Q6H PRN PRN Reason: Pain & Pre PT Stop: 02/15/23 17:55 Lidocaine (Lidocaine 5% 1 Patch) 1 patch TD [facility] Stop: 03/13/23 10:29 Last Admin: 02/12/23 08:53 Dose: 1 patch Losartan Potassium (Losartan Potassium 50 Mg Tab) 50 mg PO [facility] Stop: 03/13/23 08:59 Last Admin: 02/12/23 08:54 Dose: 50 mg Metoclopramide HCl (Metoclopramide Hcl Inj 5 Mg/Ml 2 Ml Vial) 5 mg IV BID [facility] Stop: 03/14/23 20:59 Metoprolol Succinate (Metoprolol Succ 25mg Ext Rel Tab) 75 mg PO DAILY [facility] Stop: 03/13/23 08:59 Last Admin: 02/12/23 08:54 Dose: 75 mg Miscellaneous (Remove Nicoderm Patch) 1 each N/A DAILY@0859 [facility] Stop: 03/13/23 08:58 Last Admin: 02/12/23 08:53 Dose: 1 each Miscellaneous (Carbohydrates For Hypoglycemia ) 15 - 30 gm PO UD PRN PRN Reason: Hypoglycemia Protocol Stop: 03/12/23 19:07 Miscellaneous (Remove Lidoderm Patch) 1 each N/A DAILY@2100 [facility] Stop: 03/13/23 20:59 Last Admin: 02/11/23 20:12 Dose: 1 each Morphine Sulfate (Morphine Sulfate 2 Mg/Ml Carp) 2 mg IV Q3H PRN PRN Reason: Severe Pain (Scale 7, 8, 9,10) Stop: 02/24/23 17:55 Last Admin: 02/12/23 05:56 Dose: 2 mg Nicotine (Nicotine 21 Mg/24 Hr Tdsy) 21 mg TD QAM [facility] Stop: 03/12/23 18:59 Last Admin: 02/12/23 08:53 Dose: 21 mg Ondansetron HCl (Ondansetron Inj 2 Mg/Ml 2 Ml Vial) 4 mg IV Q4H PRN PRN Reason: Nausea And Vomiting Stop: 03/12/23 17:55 Last Admin: 02/11/23 06:43 Dose: 4 mg Oxycodone/Acetaminophen (Oxycodone/Acetaminophen 5mg/325mg Tab) 1 tab PO Q4H PRN PRN Reason: MODERATE Pain (4,5,6) & Pre PT Stop: 02/24/23 17:55 Last Admin: 02/11/23 13:08 Dose: 1 tab Oxycodone/Acetaminophen (Oxycodone/Acetaminophen 5mg/325mg Tab) 2 tab PO Q4H PRN PRN Reason: Severe Pain (Scale 7, 8, 9,10) Stop: 02/25/23 16:02 Last Admin: 02/12/23 14:09 Dose: 2 tab Pantoprazole Sodium (Pantoprazole 40 Mg Tab) 40 mg PO BID [facility] Stop: 03/12/23 20:59 Last Admin: 02/12/23 08:54 Dose: 40 mg Polyethylene Glycol (Polyethylene (Miralax) 17 Gm Pack) 17 gm PO BID [facility] Stop: 03/14/23 20:59 Senna/Docusate Sodium (Docusate Sodium/Senna 50/8.6mg Tab) 2 tab PO HS [facility] Stop: 03/14/23 20:59 Sucralfate (Sucralfate 1 Gm/10 Ml Udc) 1 gm PO QID [facility] Stop: 03/14/23 12:59
--- NOTE | 2023-02-12 14:46 | XRay Report ---
KUB CLINICAL HISTORY: Abdominal pain. Recent appendectomy. Evaluate for constipation. COMPARISON STUDY: CT of the abdomen and pelvis and right upper quadrant ultrasound February 10, 2023. FINDINGS: A left pelvic calcification represents a phlebolith. There are no urinary calculi. The adrianna l gas pattern is normal. Mild to moderate amount of stool is noted. The amount of stool is within nor mal limits. IMPRESSION: 1. No evidence for a bowel obstruction or ileus. 2. Mild to moderate amount stool, within normal limits. ACT 112: Negative or not required by law. Electronically signed by: Serge Ghotra M.D. 02/12/2023 2:44 PM
[2023-02-12] MEDS: SUCRALFATE 1 GM/10 ML UDC PO SCH ×3 (15:26→21:01)
[2023-02-12] MEDS: POLYETHYLENE (MIRALAX) 17 GM PACK PO SCH (21:00)
[2023-02-12] MEDS ORDERED: DOCUSATE SODIUM/SENNA 50/8.6MG TAB PO SCH (21:00)
[2023-02-12] MEDS: FAMOTIDINE 20 MG TAB PO SCH (21:01)
[2023-02-12] MEDS: METOCLOPRAMIDE HCL INJ 5 MG/ML 2 ML VIAL IV SCH (21:02)
--- NOTE | 2023-02-13 05:46 | Surgery Progress Note ---
Date of Service February 13, 2023 Assessment & Plan (1) S/P laparoscopic appendectomy: (2) Epigastric abdominal pain: Plan: Patient is status post appendectomy on 02/10/2023 (postop day #3) Continue analgesics Continue antiemetics Due to patient's postoperative epigastric pain GI was consulted. It was felt the patient's postoperative pain may be due to conditions such as peptic ulcer disease, gastritis, or gastroparesis. Patient has been placed on a proton pump inhibitor as well as Carafate. Outpatient follow-up for consideration of EGD has been recommended. Plans are noted to advance patient to solid food for his a.m. meal today. If this is tolerated consideration be given to discharging him home A.m. labs have been ordered which are pending at this time. We will check these once available Lovenox is in place for DVT prevention Admission and Anticipated Discharge Date Admission Date: February 10, 2023 Supervising Physician Co-Signing Physician Notes Dr. Martinezpatient appears to be normal Does complain of some mild back pain but tolerating liquids Abdomen is soft I think the patient can be discharged home later this morning unless he does not tolerate his breakfast Subjective Patient is resting comfortably in bed at the present time. At the present time he denies any abdominal pain. He notes that last evening for his p.m. meal he had some liquids which she initially tolerated well but then suddenly developed some epigastric and back pain. He denied any nausea or vomiting. He notes he has not had a bowel movement since surgery but he is passing flatus. Physical Exam Gastrointestinal (Abdomen): Abdomen is soft and nondistended. It is nonrigid. There is no rebound tenderness or guarding. There is minimal pain with palpation in the epigastric area. Surgical incisions are clean, dry, intact. Results & Data Vital Signs (Past 12 Hours) Vital Signs Temp Pulse Resp BP Pulse Ox O2 Del Method 02/12/23 20:55 Room Air 02/12/23 20:45 37.3 C 99 H 16 163/94 H 95 Room Air PG Care Time/CCT Total # of Minutes Spent Total Time Spent with Patient: Total time spent is greater than 50% in coordination of care (as documented) at patient's floor/unit and/or counseling patient: Coding Level of Care Code 84933 Post Operative Follow-Up Diagnoses S/P laparoscopic appendectomy Z90.49 Epigastric abdominal pain R10.13
[2023-02-13 07:23] LABS: Basophils # (auto) 0.08 K/uL (0-0.2); Basophils % (auto) 1.2 %; Eosinophils # (auto) 0.37 K/uL (0-0.50); Eosinophils % (auto) 5.5 %; Hematocrit (blood only) 40.7 % (42.0-52.0); Hemoglobin 13.7 g/dl (14.0-18.0); Immature Granulocytes # (auto) 0.03 K/uL (0.01-0.20); Immature Granulocytes % (auto) 0.4 %; Lymphocytes # (auto) 2.22 K/uL (1.2-3.4); Lymphocytes % (auto) 33.1 %; Mean Corpuscular Hemoglobin 27.6 pg (25.0-34.0); Mean Corpuscular Hgb Conc 33.7 g/dL (32.0-36.0); Mean Corpuscular Volume 81.9 fL (80.0-100.0); Mean Platelet Volume 9.2 fL (9.4-12.4); Monocytes # (auto) 0.71 K/uL (0.11-0.59); Monocytes % (auto) 10.6 %; Neutrophils # (auto) 3.29 K/uL (1.40-6.50); Neutrophils % (auto) 49.2 %; Platelet Count 245 K/uL (130-400); RDW Coefficient of Variation 12.8 % (11.5-14.5); RDW Standard Deviation 38.2 fL (36.4-46.3); Red Blood Count 4.97 M/uL (4.70-6.10)
[2023-02-13 07:29] LABS: Albumin Globulin Ratio 1.3 (0.9-2); Albumin Level 3.9 gm/dl (3.4-5.0); BUN Creatinine Ratio 19.4 (10-20); Bilirubin,Total 0.8 mg/dl (0.2-1.0); Creatinine Clr Calc Pharmacy 186.6 ml/min; Est GFR (Non-African American) 109.5 ml/min; Globulin 2.9 gm/dl (2.5-4.0); Potassium 3.6 mmol/L (3.5-5.1); Total Protein 6.8 gm/dl (6.0-8.3)
[2023-02-13] MEDS: POLYETHYLENE (MIRALAX) 17 GM PACK PO SCH (07:45)
[2023-02-13] MEDS: FLUTICASONE/VILANTEROL 100/25MCG 14 PUFFS/INHALER INH SCH (07:46)
[2023-02-13] MEDS: ENOXAPARIN INJ 40 MG/0.4 ML SYR SQ SCH (07:46)
[2023-02-13] MEDS: GABAPENTIN 100 MG CAP PO SCH (07:46)
[2023-02-13] MEDS: METOCLOPRAMIDE HCL INJ 5 MG/ML 2 ML VIAL IV SCH (07:47)
[2023-02-13] MEDS: LIDOCAINE 5% 1 PATCH TD SCH (07:47)
[2023-02-13] MEDS: LOSARTAN POTASSIUM 50 MG TAB PO SCH (07:47)
[2023-02-13] MEDS: METOPROLOL SUCC 25MG EXT REL TAB PO SCH (07:48)
[2023-02-13] MEDS: PANTOprazole 40 MG TAB PO SCH (07:48)
[2023-02-13] MEDS: NICOTINE 21 MG/24 HR TDSY TD SCH (07:48)
[2023-02-13] MEDS: LANTUS PER UNIT CHARGE SQ SCH (07:49)
[2023-02-13] MEDS: SUCRALFATE 1 GM/10 ML UDC PO SCH (07:49)
[2023-02-13] MEDS: oxyCODONE/ACETAMINOPHEN 5mg/325mg TAB PO PRN (07:55)
--- NOTE | 2023-02-13 08:48 | Communication Note ---
Date of Service: February 13, 2023 Patient was already discharged by primary team prior to being seen by me today. Patient is already off the floor.
[2023-02-13] MEDS ORDERED: POLYETHYLENE (MIRALAX) 17 GM PACK PO SCH (09:00)
--- NOTE | 2023-02-15 10:44 | Discharge Summary ---
Date of Service February 15, 2023 Admission HPI Per Admitting Provider 47-year-old gentleman presents with 2 to 3-day history of vague right lower quadrant abdominal pain. It worsened significantly this morning. He did have nausea and vomiting associated with it. He denies fevers and chills. He denies chest pain or shortness of breath. He denies changes in bowel habits. CT scan demonstrates early acute appendicitis. White blood cell count is 11. Principal Diagnosis Acute appendicitis Discharge Data Allergies Allergy/AdvReac Type Severity Reaction Status Date / Time Cephalosporins Allergy Unknown Unknown Verified 02/10/23 15:26 NSAIDS (Non-Steroidal AdvReac Intermediate gastroparesis, Verified 02/10/23 15:26 Anti-Inflamma kidney problems empagliflozin AdvReac Unknown Unknown Verified 02/10/23 15:26 [From Jardiance] Consultations 04/ 17:56 Consult Hospitalist Routine 04 11:00 Consult Gastroenterology Routine Procedures Performed Operation Date: 02/10/23 14:05 Actual Procedures p Laparoscopic Appendectomy(Not Applicable) - Adarsh Winston MD Ordered Studies 04/ 11:26 CT abd pelvis wo con Stat 02/10/ 13:01 US gallbladder Stat 02/10/23 13:09 CT Abd and Pelvis [CT abd pelvis IV con only] Stat Hospital Course (1) Acute appendicitis: Patient was taken to operating room for laparoscopic appendectomy by Dr. Winston. Patient found to have appendicitis without abscess or rupture. Patient tolerated procedure without difficulty and transferred to med/surg for postoperative care. Diet advanced as tolerated, pain management as needed, oral home medications resumed, and activity as tolerated. POD# 1 patient avss but having moderate low back pain. Toradol and muscle relaxants ordered. Diet advanced as tolerated. POD# 2 avss, no leukocytosis, severe epigastric pain with nausea and inability to eat. Chronic low back pain. GI consulted and recommended continuation of his home PPI, antacid, Reglan, and start Carafate. Outpatient EUS/EGD. Patients diet was reverted back to clear liquids and advance to soft diet in morning of POD # 3, patient tolerated diet and was discharged home on POD # 3 in stable condition. (2) Epigastric abdominal pain: pain immediately after eating with associated nausea epigastric pain on exam History of GERD, takes daily NSAIDs for chronic pain arthritis for years takes Protonix and Famotidine at home GI consulted recommend continuation of home meds and add on PO Carafate 1 gm GID. OUtpatient EUS/EGD (3) Nausea: (4) Chronic low back pain: Chronic Continue gabapentin and flexeril and pain management Total Time Total Time Spent Total Time Spent (In Minutes): 60 minutes Discharge Plan Discharge Items Patient Disposition: Home - Self-Care Reason For Visit: ACUTE APPENDICITIS Discharge Diagnosis: Acute appendicitis Activity: Per Instructions section Non-emergency contact: Primary Care Provider and Surgeon Call non-emergency contact if: you have any medication questions, your pain is not controlled, your pain is worsening, you have a fever, your temperature is above 101, your wound has increased redness, your wound has increased drainage and your wound pain has increased Follow-up/Referrals: Alondra Cleaning CRNP [Nurse Practitioner] - Devora Carvalho PA-C [Physician Engineer Intern] - 02/23/23 1:30 pm Velasquez Valencia MD [Primary Care Provider] - Diet: Regular Addtl Attending Provider Instructions: Post-Surgical ~Discharge Instructions Activity Recommendations: - lifting limitation: (20 pounds for 2-3 weeks), - exercise/sex/sports limit: (nonstrenuous for 2 weeks), - driving or machine use limit: (none for 1 week or until pain free and no longer taking narcotic pain medication), - Shower/bathe limit: (may shower, no submerging incisions underwater for 2 weeks) Diet: - Resume previous diet SPECIAL CARE INSTRUCTIONS: - May shower. Let water run over area and pat dry. - Surgical glue will fall off on its own, do not pick at it. - Call the surgeon's office with any questions or concerns - - (ex. temperature higher than 101 degrees F, excessive bleeding or pain). MEDICATIONS: - Resume previous medications unless instructed otherwise by your surgeon. - May take extra strength Tylenol as needed for pain -650 mg Tylenol every 6 hours as needed - Percocet 1 every 6 hours, as needed for pain - Continue your antacid medication. Continue Carafate. FOLLOW UP VISIT: - If not already scheduled, please call the office to schedule a two week follow-up appointment. Office number You will need outpatient follow-up with gastroenterology. Please call office to set up an appointment. Pending Studies at Discharge: Yes (appendix pathology) Stand-Alone Forms: My [facility], Smoking Cessation Medications and DC Order Prescriptions: New sucralfate 100 mg/mL Suspension 1 g PO QID Qty: 1200 0RF oxycodone-acetaminophen [Percocet] 5-325 mg Tablet 1 tab PO Q6H PRN (Reason: pain) Qty: 12 0RF Continued insulin aspart U-100 [Novolog FlexPen U-100 Insulin] 100 unit/mL (3 mL) insulin pen 16 unit subcut TIDM dicyclomine 10 mg capsule 10 mg PO QID PRN (Reason: Diarrhea) famotidine 20 mg tablet 20 mg PO HS pantoprazole 40 mg tablet,delayed release (DR/EC) 40 mg PO BID docusate sodium [Col-Rite] 100 mg capsule 100 mg PO BID PRN (Reason: Constipation) losartan 50 mg tablet 50 mg PO QAM metformin 500 mg tablet 1,000 mg PO BID cyclobenzaprine 10 mg tablet 10 mg PO HS PRN (Reason: Muscle Spasm) gabapentin 100 mg capsule 200 mg PO HS gabapentin 100 mg capsule 100 mg PO QAM metoclopramide HCl 10 mg tablet 10 mg PO TIDM insulin glargine [Lantus Solostar U-100 Insulin] 100 unit/mL (3 mL) insulin pen 25 unit SUBCUT QAM insulin glargine [Lantus Solostar U-100 Insulin] 100 unit/mL (3 mL) insulin pen 34 unit SUBCUT HS budesonide-formoterol [Symbicort] 80-4.5 mcg/actuation HFA aerosol inhaler 2 puff INHALATION [facility] metoprolol succinate 50 mg tablet extended release 24 hr 75 mg PO DAILY Held Wegovy 1.7 mg/0.75 mL pen injector 1.7 mg SUBCUT WK Hold Instructions: Hold as you were instructed by your doctor Discharge Orders: Discharge Order (Routine); Ordered 02/13/23 Ordered By: Eusebio Martinez Admission Data Admit Date/Time: 02/10/23 16:59 Attending Provider: Adarsh Winston Admit Provider: Adarsh Winston Primary Care Provider: Velasquez Valencia Other Providers: Michell Ribera,Hellen I. ; Sepideh Yeung ; Madeline Rodriguez ; Madeleine Molnia ; Nely Ca ; Mackenzie Shelton ; Zach Brown ; Hernan Busby ; Chacorta Kendall ; Sunni Canseco ; [facility] Rohan ; Jolene Ruano ; Hannah Silver ; Rose Lanza ; Tristin Reynoso ; Vivian Carrillo ; Katie Martinez ; Radha Irizarry ; Zara Diego I. ; Maxwell Ruiz ; Claudia Hill ; Ashley Reese ; Donis SamuelshDarvin ; Dominic Camara ; Buddy Delgado ; Gamal Evans ; Ryan Gilbert ; KhorramiPam S. ; Roosevelt Cai ; Alondra Cleaning ; Rashawn Meléndez. ; Asia Shin ; Devora Gonzalez ; Tessa Vivar ; Lina Alvarez ; Katey,Bk ; Steve Wyatt ; Belen Jones ; Kenneth Butterfield ; Janak Aldrich. ; Soledad Saravai ; Linette Morales ; Aruna Guzman ; Marcela Del Valle ; Jenny Sosa ; Dario Oropeza ; Dominic Tatum ; Carlota Rodriguez ; Christiano Freeman Jr Other Interventions: Discharge Summary Assessment (RN) Last Done: 02/13/23 07:26
== END 2023-02-13 08:26 | disposition home or self-care (01) ==
LOC: ED 11:05 → OR 15:17 → 3N 15:17
DX: Z79.84 Long term (current) use of oral hypoglycemic drugs; Z68.38 Body mass index [BMI] 38.0-38.9, adult; F17.210 Nicotine dependence, cigarettes, uncomplicated; E66.01 Morbid (severe) obesity due to excess calories; Z88.8 Allergy status to other drugs, medicaments and biological substances; K35.80 Unspecified acute appendicitis; Z79.4 Long term (current) use of insulin; Z88.6 Allergy status to analgesic agent

== ENCOUNTER 2023-09-19 09:20 | Inpatient (IN) ==
--- OUTSIDE RECORDS SUMMARY | 2023-09-19 09:26 | External Medical Summary | Summary of Care ---
Author Name Unknown Organization [facility] Address [address] [place] [address] Phone [phone] Care Team Providers Care Academic Associate Name Role Phone Velasquez Valencia MD Primary Care Provider +1- [phone] Reason for Visit * Reason Comments Appointment Encounter Details Date Type Department Care Team (Late st Contact Info) Description 09/15/2023 6:10 PM [facility] Pharmacy Pharmacy, [address] [address] [facility] [address] [place] [address] Type 2 diabetes mellitus with hemoglobin A1c goal of less than 7.0% ([facility])* Allergies Active Allergy Reactions Criticality Noted Date Comments Cefaclor Unknown 07/26/2018 As child Empagliflozin Other (Please comment) 05/16/2021 DKA with hospitalization documented as of this encounter (statuses as of 09/15/2023) Medications Medication Sig Dispensed Refills Start Date End Date Status Diclofenac Sodium (VOLTAREN) 1 % gel Place 2 g topically on the skin 2 times a day. To affected area as directed. 100 g 5 01/12/2020 Active docusate sodium (RA COL-RITE) 100 MG Capsule Take 1 Cap by mouth 2 times a day as needed for Constipation. 60 Cap 3 05/07/2020 Active CPAP every night at bedtime. 0 Active Albuterol Sulfate HFA 108 (90 Base) MCG/ACT Inhalation Aerosol SolutionIndication s:RSV bronchitis inhale 2 puffs by mouth and INTO THE LUNGS every 6 hours if needed for cough shortness of breath or WITHDRAWAL SYMPTOMS 54 g 3 10/29/2022 Active Pantoprazole Sodium 40 MG Oral Tablet Delayed Release (Protonix) take 1 tablet by mouth twice a day 180 Tablet 1 01/07/2023 Active oxygen IN GAS Use 2 L/min(Oxygen) as directed at bedtime. 0 Active Budesonide-Formote rol Fumarate 80-4.5 MCG/ACT Inhalation Aerosol (Symbicort) Inhale 2 Puffs by mouth in the morning and 2 Puffs before bedtime. 10.2 g 12 01/27/2023 Active Famotidine 20 MG Oral Tablet (Pepcid) Take 1 Tablet by mouth every night at bedtime. 90 Tablet 3 04/24/2023 Active Dicyclomine HCl 10 MG Oral Capsule (Bentyl) take 1 capsule by mouth four times a day 360 Capsule 3 05/10/2023 Active metFORMIN HCl 500 MG Oral Tablet (Glucophage)Indica tions:Type 2 diabetes mellitus with hemoglobin A1c goal of less than 7.0% (HCC) Take 2 Tablets by mouth in the morning and 2 Tablets in the evening. 360 Tablet 3 06/18/2023 Active Insulin Glargine Solostar 100 UNIT/ML Subcutaneous Solution Pen-injectorIndica tions:Type 2 diabetes mellitus with hemoglobin A1c goal of less than 7.0% (HCC) Inject 28 units in the morning and 40 units in the evening 75 mL 3 06/18/2023 Active Insulin Aspart FlexPen 100 UNIT/ML Subcutaneous Solution Pen-injectorIndica tions:Type 2 diabetes mellitus with hemoglobin A1c goal of less than 7.0% (HCC) inject 16 units subcutaneously three times a day with meals 45 mL 3 06/18/2023 Active Unifine Pentips 31G X 5 MM (Insulin Pen Needle)Indications :Type 2 diabetes mellitus with hemoglobin A1c goal of less than 7.0% (HCC) Use as directed 4 times daily 400 Each 3 06/18/2023 Active Cyclobenzaprine HCl 10 MG Oral Tablet (Flexeril)Indicati ons:Lumbar disc herniation TAKE 1 TABLET BY MOUTH AT BEDTIME only if NEEDED 30 Tablet 1 07/09/2023 Active Losartan Potassium 50 MG Oral Tablet (Cozaar)Indication s:HTN, goal below 140/90 Take 1 Tablet by mouth in the morning. 90 Tablet 3 07/28/2023 Active Gabapentin 100 MG Oral Capsule (Neurontin)Indicat ions:Neuropathy take 1 capsule by mouth every morning and 2 capsules by mouth at bedtime 270 Capsule 1 08/03/2023 Active Metoprolol Succinate ER 50 MG Oral Tablet Extended Release 24 Hour (toPROL XL)Indications:Sin us tachycardia Take 1 and a half tablet by mouth daily 135 Tablet 3 08/03/2023 Active Metoclopramide HCl 10 MG Oral Tablet (Reglan) take 1 tablet by mouth three times a day ( 30 MINUTES before MEALS ) 270 Tablet 1 08/03/2023 Active Mounjaro 12.5 MG/0.5ML Subcutaneous Solution Pen-injector (Tirzepatide)Indic ations:Type 2 diabetes mellitus with hemoglobin A1c goal of less than 7.0% (HCC) Inject 12.5 mg under the skin once a week. Dose increase 2 mL 0 08/19/2023 Active Hospital, Clinic, or Other Facility Administered Medication Ordered Dose Route Frequency Start Date End Date Status Albuterol Sulfate (Proventil) (5 MG/ML) 0.5% *conc* inhalation solution 2.5 mgIndications:Chronic respiratory failure with hypercapnia (HCC) 2.5 mg NEBULIZER PRN 12/01/2022 12/01/2023 Ac tive documented as of this encounter (statuses as of 09/15/2023) Active Problems Problem Noted Date Diagnosed Date Cortical age-related cataract, right eye 023 COPD, moderate 05/25/2023 Neuropathy 02/24/2023 Restrictive lung disease secondary to obesity Obstructive sleep apnea 11/02/2022 Body mass index (BMI) of 40.0 to 44.9 in adult 0 10/26/2022 Overview: Per Obesity protocol Lumbar disc herniation 10/20/2022 Chronic respiratory failure with hypercapnia Precordial pain 11/30/2021 Type 2 diabetes mellitus with autonomic neuropat hy 10/23/2021 Gastroesophageal reflux disease without esophagi tis 05/07/2020 DDD (degenerative disc disease), cervical 2018 Cervical spinal stenosis 07/12/2019 History of DVT (deep vein thrombosis) 04/19/2019 Obesity, Class II, BMI 35-39.9, isolated (see ac tual BMI) 04/19/2019 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 ICD-10 update of inactive term documented as of this encounter (statuses as of 09/15/2023) Resolved Problems Problem Noted Date Diagnosed Date Resolved Date Fracture of nasal bones, ini tial encounter for closed fracture 10/23/2021 10/20/2022 Neuropathy 10/23/2021 10/20/2022 Diabetic ketoacidosis withou t coma associated with type 2 diabetes mellitus 03/02/2021 07/04/2021 Intellectual disability 10/25/201903/2022 HTN, goal below 130/80 12/18/201710/20 Leg DVT (deep venous thrombo embolism), acute, left 10/15/2017 04/19/2019 DM type 2, goal: symptom mgmt 09/13/2017 12/18/2017 HTN, goal: symptom mgmt only 09/13/2017 12/18/2017 Cellulitis of left foot 09/10/201709/18 Abscess of left foot 09/10/2017 017 Type 2 diabetes mellitus wit h hemoglobin A1c goal of less than 8.0% 07/05/2017 09/13/2017 Major depressive disorder, r ecurrent, severe without psychotic features 12/22/2016 09/14/2022 Non-cardiac chest pain 07/24/201604/22 Esophagitis 07/24/2016 07/05/2017 DM type 2, not at goal 07/24/201604/22 HTN, goal below 140/90 12/23/201509/13 Overview: Per HTN Protocol #27. Pulmonary embolism and infarction 10/08/2015 10/23/2015 ARF (acute renal failure) 05/07/2015 Major depressive disorder, r ecurrent episode, moderate 05/07/2015 12/22/2016 HTN, GOAL BELOW 140/80 06/06/201201/21 Overview: Per HTN Protocol #27. Severe obesity with body mas s index (BMI) of 35.0 to 39.9 with serious comorbidity 01/13/2010 Overview: Per Obesity Taxonomy ICD-10 update of inactive diagnosis HTN, GOAL BELOW 130/80 11/14/200906/09 Overview: Per HTN Taxonomy. Diabetic polyneuropathy 04/12/200704/2016 Overview: ICD-10 update of inactive term DM type 2, not at goal 12/01/200511/01 ADVANCE DIRECTIVE INFORMATION 07/07/2005 10/15/2017 Overview: No, Advance Directive brochure offered , patient declined. . OBESITY, UNSPECIFIED 12/15/2002 010 Overview: Per Obesity Taxonomy HTN, goal below 140/90 12/15/200211/14 Overview: Per HTN Taxonomy. LOC PRIM OSTEOARTH- right ANKLE 07/18/2002 04/22/2017 Tobacco use disorder 02/03/2001 016 DM type 2, not at goal 08/01 Overview: Modified per Diabetes protocol #14. OTHER 04/22/2017 Overview: osseochondrosis ankle Primary localized osteoarthrosis, lower leg 10/15/2017 documented as of this encounter (statuses as of 09/15/2023) Immunizations Name Administration Dates Next Due COVID-19 mRNA, LNP-s, No Pre serve, 2-Dose Series (Pfizer) 10/21/2021,03/01/2021,02/07/2021 H1N1 2009 Influenza, IM 11/04/2009 Pneumococcal Conjugate Vacci ne, 20-valent ([id number]) 07/09/2023 Pneumococcal Polysaccharide PPV23 (Pneumovax) 11/03/2015,02/09/2006 SEASONAL INFLUENZA, PF, 6 M & Above, IM , (FLULAVAL or FLUZONE) 07/09/2023,10/16/2022,07/31/2021,09/16,07/12/2019,07/05/2018 Seasonal Influenza, Quadriva lent, No Preserve, IM 05/24/2017,07/24/2016 Seasonal Influenza, Split, I IV3, With Preserve, Inj 06/27/2015,07/07/2010,09/02/2009,10/26 TDAP (age 10 and older)(Boostrix) 05/01/2018 documented as of this encounter Social History Tobacco Use Types Packs/Day Years Used Date Smoking Tobacco: Every Day Cigarettes 2 33 Smokeless Tobacco: Never Comments:01/27/23 currently smoking 10-15 cig/day Alcohol Use Standard Drinks/Week Comments Not Currently 0 (1 standard drink = 0.6 oz pur e alcohol) 1 beer in the past two years AUDIT-C Answer Date Recorded Frequency of Alcohol Consumption Never 05/24/2019 Average Number of Drinks Not on file 019 Frequency of Binge Drinking Not on file 04/2019 PHQ-2 Answer Date Recorded PHQ Adult Total Score 0 02/24/2023 Hunger Vital Sign Answer Date Recorded Within the past 12 months, y ou worried that your food would run out before you got the money to buy more. Never true 02/25/20 23 Within the past 12 months, t he food you bought just didn't last and you didn't have money to get more. Never true 02/24/2023 Sex and Gender Information Value Date Recorded Sex Assigned at Not on file Gender Identity Not on file Sexual Orientation Straight 09/01/2021 9: 34 AM EST Job Start Date Occupation Industry Not on file Not on file Not on file documented as of this encounter Functional Status Functional Status Response Date of Assess ment Are you deaf or do you have serious difficulty h earing? No 11/30/2021 Are you blind or do you have serious difficulty seeing, even when wearing glasses? No 11/30/2021 Do you have serious difficul ty walking or climbing stairs? (5 years old or older) No 11/30/2021 Do you have difficulty dress ing or bathing? (5 years old or older) No 11/30/2021 Because of a physical, menta l, or emotional condition, do you have difficulty doing errands alone such as visiting a doctor s office or shopping? (15 years old or older) No 11/30/19 Cognitive Status Response Date of Assessm ent Because of a physical, menta l, or emotional condition, do you have serious difficulty concentrating, remembering, or making decisions? (5 years old or older) No 11/30/2021 documented as of this encounter Progress Notes * Mackenzie Becker PHARM Tech - 09/15/2023 9:35 AM EST Patient Phone Numbers Spoke to pt to reschedule return DM appt. He will call back to reschedule. Clinic will f/u in 4 weeks unless pt calls in to schedule sooner. Attempt # 1 Thank you, Mackenzie Becker Library Assistant [facility] ([facility]) (formerly Telepharmacy) [phone] 09/15/2023,9:36 AM documented in this encounter Plan of Treatment Upcoming Encounters Date Type Department Care Team (Late st Contact Info) Description 09/30/2023 9:00 AM EST Procedure Only Endoscopy, [facility] [address] [place] [address] aJnak Aldrich MD [address] [place] [address] 10/13/2023 6:10 PM EST [address] [address] [place], [facility] [address] [place] [facility] [place] [address] 12/14/2023 10:40 AM EST Office Visit [facility], [place] [address] [place] [phone] Velasquez Valencia MD [address] [place] [facility] [place] [address] Health Maintenance Due Date Last Done Comments Hepatitis B (1 of 3 - 3-dose series) 1973 HIV Screening 1988 Alpha-1 Antitrypsin 1991 Hepatitis C Screening 1991 Diabetic Eye Exam 03/07/2022 03/07/2021, , 08/28/2010, Additional history exists COVID-19 Vaccine () 06/18/2023 10/21/2021, 03/01/2021, 02/07/2021 DISCUSS TOBACCO CESSATION (REFER TO SMARTSET #3291) 10/16/2023 10/16/2022 Albumin/Creatinine Ratio 01/06/2024 023, 09/01/2021, 05/07/2015, Additional history exists HbA1c 02/02/2024 08/03/2023, 06/19, 01/05/2023, Additional history exists Depression Screening 02/25/2024 02/24/2023 Diabetic Foot Exam 07/09/2024 07/09/2023, 0 03/07/2021, 11/27/2019, Additional history exists GFR 08/03/2024 08/03/2023, 06/19, 02/07/2023, Additional history exists O2 ASSESSMENT COMPLETED IN PAST YEAR FOR COPD 09/08/2024 09/08/2023 Lipid Panel 01/06/2028 01/05/2023, 08/18, 01/08/2011, Additional history exists COLONOSCOPY-EVERY 5 YRS AGES 18-100 04/15/2028 04/15/2023, 04/18/2015 DTaP,Tdap,and Td Vaccines (2 - Td or Tdap) 05/01/2028 05/01/2018 Influenza Vaccine (FLU shot) Completed , 10/16/2022, 07/31/2021, Additional history exists Pneumococcal Vaccine: Pediatrics (0 to 5 Years) and At-Risk Patients (6 to 64 Years) Completed 07/09/2023, 11/03/2015, 02/09/2006 GARDASIL-HPV IMMUNIZATION SERIES Aged Out No longer eligible based on patient's age to complete this topic MENINGOCOCCAL (MENACTRA/MENVEO) Aged Out No longer eligible based on patient's age to complete this topic documented as of this encounter Medical Devices Implanted Type Area Branch Maker Device Identifier Shelf Expiration Date Model / Serial / Lot Suture [place] Dbl Load 5.5mm - [id number] Implanted:Qty: 1 on 12/01/2019 by Judith Condon DO at OR [facility] Right: Shoulder [employer] 09/16/2021 [id number] / / [id number] documented as of this encounter Visit Diagnoses Diagnosis Type 2 diabetes mellitus with hemoglobin A1c goal of less than 7.0% ([facility])- Primary documented in this encounter Additional Health Concerns Infection Onset Date Last Indicated Resolved Time Enterovirus (resp)/Rhinovirus 08/28/2023 08/28/2023 documented as of this encounter Advance Directives Latest Code Status on File Code Status Date Activated Date Inactivated Comments Full Code 11/30/2021 9:36 PM 12/01/2021 9:03 PM This order reflects the patients wishes and were consensually agreed upon. Question Answer Comments Discussion of Advance Directives occurred with: Not Discussed Code Status History Code Status Date Activated Date Inactivated Comments Full Code 03/02/2021 10:51 PM 03/04/2021 9:45 PM This order reflects the patients wishes and were consensually agreed upon. Question Answer Comments Discussion of Advance Directives occurred with: Patient Does the patient have a Living Will? No Does the patient have Health Care Power of Automotive Technician Instructor? No Care Teams Academic Associate Relationship Specialty Start Date End Date Velasquez Valencia MD [address] [place] [address] PCP - General Family Medicine 09/09/22 documented as of this encounter
--- OUTSIDE RECORDS SUMMARY | 2023-09-19 09:26 | External Medical Summary | Summary of Care ---
Author Name Unknown Organization [facility] Address [address] [place] [address] Phone [phone] Care Team Providers Care Electrical Automation Engineer Name Role Phone Velasquez Valencia MD Primary Care Provider +1- [phone] Reason for Visit * Reason Onset Date Comments Medication Refill 09/16/2023 Budesonide-For moterol Fumarate 80-4.5 mcg/Act Encounter Details Date Type Department Care Team (Late st Contact Info) Description 09/16/2023 Refill Pulmonary Medicine Jerzy Reyes [address] [place] [address] Susan Patel MD [address] [place] [address] Restrictive lung disease secondary to obesity* Allergies Active Allergy Reactions Criticality Noted Date Comments Cefaclor Unknown 07/26/2018 As child Empagliflozin Other (Please comment) 05/16/2021 DKA with hospitalization documented as of this encounter (statuses as of 09/16/2023) Medications Medication Sig Dispensed Refills Start Date End Date Status Diclofenac Sodium (VOLTAREN) 1 % gel Place 2 g topically on the skin 2 times a day. To affected area as directed. 100 g 5 0 Active docusate sodium (RA COL-RITE) 100 MG Capsule Take 1 Cap by mouth 2 times a day as needed for Constipation. 60 Cap 3 0 Active CPAP every night at bedtime. 0 Active Albuterol Sulfate HFA 108 (90 Base) MCG/ACT Inhalation Aerosol SolutionIndicatio ns:RSV bronchitis inhale 2 puffs by mouth and INTO THE LUNGS every 6 hours if needed for cough shortness of breath or WITHDRAWAL SYMPTOMS 54 g 3 3 Active Pantoprazole Sodium 40 MG Oral Tablet Delayed Release (Protonix) take 1 tablet by mouth twice a day 180 Tablet 1 3 Active oxygen IN GAS Use 2 L/min(Oxygen) as directed at bedtime. 0 Active Famotidine 20 MG Oral Tablet (Pepcid) Take 1 Tablet by mouth every night at bedtime. 90 Tablet 3 3 Active Dicyclomine HCl 10 MG Oral Capsule (Bentyl) take 1 capsule by mouth four times a day 360 Capsule 3 3 Active metFORMIN HCl 500 MG Oral Tablet (Glucophage)Indic ations:Type 2 diabetes mellitus with hemoglobin A1c goal of less than 7.0% (HCC) Take 2 Tablets by mouth in the morning and 2 Tablets in the evening. 360 Tablet 3 3 Active Insulin Glargine Solostar 100 UNIT/ML Subcutaneous Solution Pen-injectorIndic ations:Type 2 diabetes mellitus with hemoglobin A1c goal of less than 7.0% (HCC) Inject 28 units in the morning and 40 units in the evening 75 mL 3 3 Active Insulin Aspart FlexPen 100 UNIT/ML Subcutaneous Solution Pen-injectorIndic ations:Type 2 diabetes mellitus with hemoglobin A1c goal of less than 7.0% (HCC) inject 16 units subcutaneously three times a day with meals 45 mL 3 3 Active Unifine Pentips 31G X 5 MM (Insulin Pen Needle)Indication s:Type 2 diabetes mellitus with hemoglobin A1c goal of less than 7.0% (HCC) Use as directed 4 times daily 400 Each 3 3 Active Cyclobenzaprine HCl 10 MG Oral Tablet (Flexeril)Indicat ions:Lumbar disc herniation TAKE 1 TABLET BY MOUTH AT BEDTIME only if NEEDED 30 Tablet 1 3 Active Losartan Potassium 50 MG Oral Tablet (Cozaar)Indicatio ns:HTN, goal below 140/90 Take 1 Tablet by mouth in the morning. 90 Tablet 3 3 Active Gabapentin 100 MG Oral Capsule (Neurontin)Indica tions:Neuropathy take 1 capsule by mouth every morning and 2 capsules by mouth at bedtime 270 Capsule 1 3 Active Metoprolol Succinate ER 50 MG Oral Tablet Extended Release 24 Hour (toPROL XL)Indications:Si nus tachycardia Take 1 and a half tablet by mouth daily 135 Tablet 3 3 Active Metoclopramide HCl 10 MG Oral Tablet (Reglan) take 1 tablet by mouth three times a day ( 30 MINUTES before MEALS ) 270 Tablet 1 3 Active Mounjaro 15 MG/0.5ML Subcutaneous Solution Pen-injector (Tirzepatide)Yanet cations:Type 2 diabetes mellitus with hemoglobin A1c goal of less than 7.0% (HCC) Inject 15 mg under the skin once a week. Dose increase 6 mL 4 3 09/14/20 24 Active Budesonide-Formot meeta Fumarate 80-4.5 MCG/ACT Inhalation Aerosol (Symbicort)Indica tions:Restrictive lung disease secondary to obesity Inhale 2 Puffs by mouth in the morning and 2 Puffs before bedtime. 10.2 g 12 3 Active Budesonide-Formot meeta Fumarate 80-4.5 MCG/ACT Inhalation Aerosol (Symbicort) Inhale 2 Puffs by mouth in the morning and 2 Puffs before bedtime. 10.2 g 12 3 09/16/20 23 Discontinu ed(Refill) Hospital, Clinic, or Other Facility Administered Medication Ordered Dose Route Frequency Start Date End Date Status Albuterol Sulfate (Proventil) (5 MG/ML) 0.5% *conc* inhalation solution 2.5 mgIndications:Chronic respiratory failure with hypercapnia (HCC) 2.5 mg NEBULIZER PRN 12/01/2022 12/01/2023 Ac tive documented as of this encounter (statuses as of 09/16/2023) Active Problems Problem Noted Date Diagnosed Date [...] as of this encounter (statuses as of 09/16/2023) Resolved Problems Problem Noted Date Diagnosed Date Resolved Date Fracture of nasal bones, ini tial encounter for closed fracture 10/23/2021 10/20/2022 Neuropathy 10/23/2021 10/20/2022 Diabetic ketoacidosis withou t coma associated with type 2 diabetes mellitus 03/02/2021 07/04/2021 Intellectual disability 10/25/[address] 03/2022 HTN, goal below 130/80 12/18/201710/20 Leg DVT (deep venous thrombo embolism), acute, left 10/15/2017 04/19/2019 DM type 2, goal: symptom mgmt 09/13/2017 12/18/2017 HTN, goal: symptom mgmt only 09/13/2017 12/18/2017 Cellulitis of left foot 09/10/2017 122 06/2017 Abscess of left foot 09/10/2017 017 Type [...] as of this encounter (statuses as of 09/16/2023) Immunizations Name Administration Dates Next Due COVID-19 mRNA, LNP-s, No Pre serve, 2-Dose Series (Pfizer) 10/21/2021,03/01/2021,02/07/2021 H1N1 2009 Influenza, IM 11/04/2009 Pneumococcal Conjugate Vacci ne, 20-valent ([id number]) 07/09/2023 Pneumococcal Polysaccharide PPV23 (Pneumovax) 11/03/2015,02/09/2006 SEASONAL [...] No 11/30/2021 documented as of this encounter Miscellaneous Notes * Telephone Encounter - Susan Patel MD - 09/16/2023 4:37 PM ESTSigned Prescriptions: Disp Refills Budesonide-Formoterol Fumarate 80-4.5 MCG/*10.2 g 12 Sig: Inhale 2 Puffs by mouth in the morning and 2 Puffs before bedtime. Authorizing Provider: SUSAN PATEL * Telephone Encounter - Rubia Taylor LPN - 09/16/2023 11:57 AM EST m documented in this encounter Plan of Treatment Upcoming Encounters Date Type Department Care Team (Late st Contact Info) Description 09/30/2023 9:00 AM EST Procedure Only Endoscopy, [facility] [address] [place] [address] Janak Aldrich MD [address] [place] [address] 10/13/2023 6:10 PM EST Pharmacy Pharmacy, [place] [address] [place] [address] [facility] [address] [place] [address] 12/14/2023 10:40 AM EST Office Visit Family [facility] [place] [address] [facility] [place] [id number] Velasquez Valencia MD [address] [place] [address] Health Maintenance Due Date Last Done Comments Hepatitis B (1 of 3 - 3-dose series) 1973 HIV Screening 1988 Alpha-1 Antitrypsin 1991 Hepatitis C Screening 1991 Diabetic Eye Exam 03/07/2022 03/07/2021, , 08/28/2010, Additional history exists COVID-19 Vaccine ( season) 2023 10/21/2021, 03/01/2021, 02/07/2021 DISCUSS TOBACCO CESSATION (REFER TO SMARTSET #7858) 10/16/2023 10/16/2022 Albumin/Creatinine Ratio 01/06/2024 023, 09/01/2021, [...] this encounter Medical Devices Implanted Type Area Lease Operator Device Identifier Shelf Expiration Date Model / Serial / Lot Suture [place] Dbl Load 5.5mm - [id number] Implanted:Qty: 1 on 12/01/2019 by Judith Condon, at OR [facility] Right: Shoulder [employer] 09/16/2021 [id number] / / [id number] documented as of this encounter Visit Diagnoses Diagnosis Restrictive lung disease secondary to obesity- Primary Other diseases of lung, not elsewhere classified documented in this encounter Additional Health Concerns [...] the patient have Health Care Power of Macaroni Press Operator? No Care Teams Electrical Automation Engineer Relationship Specialty Start Date End Date Velasquez Valencia MD [address] [facility] [place] [address] PCP - General Family Medicine 09/09/22 documented as of this encounter
--- OUTSIDE RECORDS SUMMARY | 2023-09-19 09:26 | External Medical Summary | Summary of Care ---
Author Name Unknown Organization [facility] Address [address] [place] [address] Phone [phone] Care Team Providers Care Broom Stitcher Name Role Phone Velasquez Valencia MD Primary Care Provider [phone]- [phone] Reason for Visit * Reason Comments Hospital Follow-Up Encounter Details Date Type Department Care Team (Latest Contact Info) Description 09/08/2023 12:[address] PM EST Office Visit [facility] [address] [place] [address] FebruaryRed MD [address] [place] [address] Rhinovirus infection*; Cortical age-related cataract, right eye; Type 2 diabetes mellitus with hemoglobin A1c goal of less than 7.0% ([facility]); Diabetic polyneuropathy associated with type 2 diabetes mellitus ([facility]); COPD, moderate ([facility]) Allergies Active Allergy Reactions Criticality Noted Date Comments Cefaclor Unknown 07/26/2018 As child Empagliflozin Other (Please comment) 05/16/2021 DKA with hospitalization documented as of this encounter (statuses as of 09/08/2023) Medications Medication Sig Dispensed Refills Start Date [...] as of this encounter (statuses as of 09/08/2023) Active Problems Problem Noted Date Diagnosed Date Cortical age-related cataract, right eye 023 COPD, moderate 05/25/2023 Neuropathy 02/24/2023 Restrictive lung disease secondary to obesity Obstructive sleep apnea 11/02/2022 Body mass index (BMI) of 40.0 to 44.9 in adult 0 10/26/2022 Overview: Per Obesity protocol Lumbar disc herniation 10/20/2022 Chronic respiratory failure with hypercapnia 12/ Precordial pain 11/30/2021 Type 2 diabetes mellitus [...] as of this encounter (statuses as of 09/08/2023) Resolved Problems Problem Noted Date Diagnosed Date [...] as of this encounter (statuses as of 09/08/2023) Immunizations Name Administration Dates Next Due COVID-19 mRNA, LNP-s, No Pre serve, 2-Dose Series (Pfizer) 10/21/2021,03/01/2021,02/07/2021 H1N1 2009 Influenza, IM 11/04/2009 Pneumococcal Conjugate Vacci ne, 20-valent ([id number]) 07/09/2023 Pneumococcal Polysaccharide PPV23 (Pneumovax) 11/03/2015,02/09/2006 SEASONAL [...] Day Cigarettes 2 33 Smokeless Tobacco: Never Tobacco Cessation:Ready to Q uit: Not Asked; Counseling Given: Not Answered Comments:01/27/23 currently smoking 10-15 cig/day Alcohol Use Standard Drinks/Week Comments Not Currently 0 (1 standard drink = 0.6 oz pur e alcohol) 1 beer in the past two years AUDIT-C Answer Date Recorded Frequency of Alcohol Consumption Never 05/24/2019 Average Number of Drinks Not on file 019 Frequency of Binge Drinking Not on file 0804/2019 PHQ-2 Answer Date Recorded PHQ Adult Total [...] on file documented as of this encounter Last Filed Vital Signs Vital Sign Reading Time Taken Comments Blood Pressure 134/70 09/08/2023 12:34 PM EST Pulse 104 09/08/2023 12:34 PM EST Temperature 36.4 C (97.5 F) 09/08/2023 12:[address] Respiratory Rate 22 09/08/2023 12:34 PM EST Oxygen Saturation 93% 09/08/2023 12:34 PM EST Inhaled Oxygen Concentration - - Weight 152.4 kg (336 lb) 09/08/2023 12:34 PM EST Height - - Body Mass Index 42 08/28/2023 11:25 AM EST documented in this encounter Functional Status Functional Status Response [...] as of this encounter Progress Notes * Red Ornelas MD - 09/08/2023 12:41 PM EST Images from the original note were not included. Assessment and Plan Recovered well from rhinovirus infection. 1. Rhinovirus infection Resolved. 2. Cortical age-related cataract, right eye Noted by ophthalmology. 3. Type 2 diabetes mellitus with hemoglobin A1c goal of less than 7.0% ([facility]) A1C 9.3. 4. Diabetic polyneuropathy associated with type 2 diabetes mellitus ([facility]) 5. COPD, moderate ([facility]) Chronic cough. Continue Symbicort and PRN albuterol. Wrap-Up Follow up as needed. History of Present Illness The patient is a 47 year old male with past medical history of type II diabetes with neuropathy, dyslipidemia, DAMION, COPD, obesity, tobacco use who presents to ED follow up. Patient was seen at [facility] on 08/28/2023. Presented due to cough and congestion of two days duration. Viral testing completed which resulted positive for rhino/enterovirus infection. Today patient reports he overall feels well. He does have a chronic cough with mucus production which would be consistent with his COPD. He is appropriately on Symbicort and albuterol. He is eating and drinking normally though he does note he has gastroparesis and therefore can only eat 1 large meal per day. He was no fevers. No shortness of breath. Physical Exam Vitals: 09/08/23 1234 Temp: 36.4 C (97.5 F) Pulse: 104 Resp: 22 SpO2: 93% BP: 134/70 Physical Exam Physical Exam Vitals reviewed. Constitutional: General: He is not in acute distress. Cardiovascular: Rate and Rhythm: Normal rate and regular rhythm. Heart sounds: No murmur heard. Pulmonary: Effort: Pulmonary effort is normal. No respiratory distress. Breath sounds: No wheezing. Comments: Distant breath sounds. Neurological: General: No focal deficit present. Mental Status: He is alert. Psychiatric: Mood and Affect: Mood normal. Behavior: Behavior normal. documented in this encounter Plan of Treatment Upcoming Encounters Date Type Department Care Team (Late st Contact Info) Description 09/10/2023 11:40 AM EST Telemedicine Pharmacy, [place] [address] [place] [address] [facility] [address] [place] [address] 09/30/2023 9:00 AM EST Procedure Only Endoscopy, [facility] [address] [place] [address] Janak Aldrich MD [address] [place] [address] 12/14/2023 10:40 AM EST Office [facility] [address] [id number] Velasquez Valencia MD [address] [place] [address] Health Maintenance Due Date Last Done Comments [...] ASSESSMENT COMPLETED IN PAST YEAR FOR COPD 08/28/2024 08/28/2023 Lipid Panel 01/06/2028 01/05/2023, 08/18, 01/08/2011, Additional [...] this encounter Medical Devices Implanted Type Area Skimmer Device Identifier Shelf Expiration Date Model / Serial / Lot Suture [place] Dbl Load 5.5mm - [id number] Implanted:Qty: 1 on 12/01/2019 by Judith Condon, at OR [facility] [address] Right: Shoulder [employer] 09/16/2021 [id number] / / [id number] documented as of this encounter Visit Diagnoses Diagnosis Rhinovirus infection- Primary Rhinovirus infection in conditions classified elsewhere and of unspecified site Cortical age-related cataract, right eye Type 2 diabetes mellitus with hemoglobin A1c goal of less than 7.0% ([facility]CC) Diabetic polyneuropathy associated with type 2 diabetes mellitus ([facility]) COPD, moderate ([facility]CC) Chronic airway obstruction, not elsewhere classified documented in this encounter [...] the patient have Health Care Power of Lead Front End Developer? No Care Teams Broom Stitcher Relationship Specialty Start Date End Date Velasquez Valencia MD [address] [place] [address] PCP - General Family Medicine 09/09/22 documented as of this encounter
--- OUTSIDE RECORDS SUMMARY | 2023-09-19 09:26 | External Medical Summary | Summary of Care ---
Author Name Unknown Organization [facility] Address [address] [place] [address] Phone [phone] Care Team Providers Care Food Aide Name Role Phone Velasquez Valencia MD Primary Care Provider +1- [phone] Reason for Visit * Reason Onset Date Comments Med Request 09/15/2023 Encounter Details Date Type Department Care Team (Late st Contact Info) Description 09/15/2023 Telephone Pharmacy, [place] [address] [place], [place] [id number] [facility] [address] [place], [place] [id number] Med Request Allergies Active Allergy Reactions Criticality Noted Date [...] HFA 108 (90 Base) MCG/ACT Inhalation Aerosol SolutionIndicati ons:RSV bronchitis inhale 2 puffs by mouth and INTO THE LUNGS every 6 hours if needed for cough shortness of breath or WITHDRAWAL SYMPTOMS 54 g 3 3 Active Pantoprazole Sodium 40 MG Oral Tablet Delayed Release (Protonix) take 1 tablet by mouth twice a day 180 Tablet 1 3 Active oxygen IN GAS Use 2 L/min(Oxygen) as directed at bedtime. 0 Active Budesonide-Formo terol Fumarate 80-4.5 MCG/ACT Inhalation Aerosol (Symbicort) Inhale 2 Puffs by mouth in the morning and 2 Puffs before bedtime. 10.2 g 12 3 Active Famotidine 20 MG Oral Tablet (Pepcid) Take 1 Tablet by mouth every night at bedtime. 90 Tablet 3 3 Active Dicyclomine HCl 10 MG Oral Capsule (Bentyl) take 1 capsule by mouth four times a day 360 Capsule 3 3 Active metFORMIN HCl 500 MG Oral Tablet (Glucophage)Yanet cations:Type 2 diabetes mellitus with hemoglobin A1c goal of less than 7.0% (HCC) Take 2 Tablets by mouth in the morning and 2 Tablets in the evening. 360 Tablet 3 3 Active Insulin Glargine Solostar 100 UNIT/ML Subcutaneous Solution Pen-injectorIndi cations:Type 2 diabetes mellitus with hemoglobin A1c goal of less than 7.0% (HCC) Inject 28 units in the morning and 40 units in the evening 75 mL 3 3 Active Insulin Aspart FlexPen 100 UNIT/ML Subcutaneous Solution Pen-injectorIndi cations:Type 2 diabetes mellitus with hemoglobin A1c goal of less than 7.0% (HCC) inject 16 units subcutaneously three times a day with meals 45 mL 3 3 Active Unifine Pentips 31G X 5 MM (Insulin Pen Needle)Indicatio ns:Type 2 diabetes mellitus with hemoglobin A1c goal of less than 7.0% (HCC) Use as directed 4 times daily 400 Each 3 3 Active Cyclobenzaprine HCl 10 MG Oral Tablet (Flexeril)Indica tions:Lumbar disc herniation TAKE 1 TABLET BY MOUTH AT BEDTIME only if NEEDED 30 Tablet 1 3 Active Losartan Potassium 50 MG Oral Tablet (Cozaar)Indicati ons:HTN, goal below 140/90 Take 1 Tablet by mouth in the morning. 90 Tablet 3 3 Active Gabapentin 100 MG Oral Capsule (Neurontin)Indic ations:Neuropath y take 1 capsule by mouth every morning and 2 capsules by mouth at bedtime 270 Capsule 1 3 Active Metoprolol Succinate ER 50 MG Oral Tablet Extended Release 24 Hour (toPROL XL)Indications:S inus tachycardia Take 1 and a half tablet by mouth daily 135 Tablet 3 3 Active Metoclopramide HCl 10 MG Oral Tablet (Reglan) take 1 tablet by mouth three times a day ( 30 MINUTES before MEALS ) 270 Tablet 1 3 Active Mounjaro 15 MG/0.5ML Subcutaneous Solution Pen-injector (Tirzepatide)Ind ications:Type 2 diabetes mellitus with hemoglobin A1c goal of less than 7.0% (HCC) Inject 15 mg under the skin once a week. Dose increase 6 mL 4 3 09/14/20 24 Active Mounjaro 12.5 MG/0.5ML Subcutaneous Solution Pen-injector (Tirzepatide)Ind ications:Type 2 diabetes mellitus with hemoglobin A1c goal of less than 7.0% (HCC) Inject 12.5 mg under the skin once a week. Dose increase 2 mL 0 3 09/15/20 23 Discontinued Hospital, Clinic, or Other Facility Administered Medication [...] IM 11/04/2009 Pneumococcal Conjugate Vacci ne, 20-valent ([id number]) 07/09/2023 Pneumococcal Polysaccharide PPV23 (Pneumovax) 11/03/2015,02/09/2006 SEASONAL [...] encounter Miscellaneous Notes * Telephone Encounter - Gisel Butler RPh - 09/15/2023 11:09 AM EST Script [facility] to [facility]abetic Medications: Metformin HCL 500mg, 2 tabs BID Lantus 28 units AM and 40 units PM Novolog 16 units with meals INC Mounjaro 15 mg once weekly x 4 weeks, increase as tolerated GFR >90 as of 08/03/2023 Gisel Butler PharmD, BCACP Clinical Pharmacist Medication Therapy Disease Management 09/15/2023, 11:09 AM * Telephone Encounter - Mackenzie Becker PHARM Tech - 09/15/2023 9:32 AM EST Pt is requesting the next dose up of mounjaro. Thank you, Mackenzie Becker Golf Course Assistant [facility] ([facility]) (formerly Telepharmacy) [phone] 09/15/2023,9:34 AM documented in this encounter Plan of Treatment Upcoming Encounters Date Type Department Care Team (Latest Contact Info) Description 09/15/2023 6:10 PM EST Pharmacy Pharmacy, [place] [address] [place] [address] [facility] [address] [place] [address] Type 2 diabetes mellitus with hemoglobin A1c goal of less than 7.0% (HCC)* 09/30/2023 9:00 AM EST Procedure Only Endoscopy, [facility] [address] [place] [address] Janak Aldrich MD [address] [place] [address] 10/13/2023 6:10 PM EST Pharmacy Pharmacy, [place] [address] [place] [address] [facility] [address] [place] [address] 12/14/2023 10:40 AM EST Office Visit [facility], [place] [address] [place] [facility] [place] [address] Velasquez Valencia MD [address] [place] [facility] [place] [address] Health Maintenance Due Date Last Done Comments Hepatitis B (1 of 3 - 3-dose series) 1973 HIV Screening 1988 Alpha-1 Antitrypsin 1991 Hepatitis C Screening 1991 Diabetic Eye Exam 03/07/2022 03/07/2021, , 08/28/2010, Additional history exists COVID-19 Vaccine ( season) 2023 10/21/2021, 03/01/2021, 02/07/2021 DISCUSS TOBACCO CESSATION (REFER TO SMARTSET #8672) 10/16/2023 10/16/2022 Albumin/Creatinine Ratio 01/06/2024 023, 09/01/2021, [...] this encounter Medical Devices Implanted Type Area Medical Insurance Clerk Device Identifier Shelf Expiration Date Model / Serial / Lot Suture [place] Dbl Load 5.5mm - [id number] Implanted:Qty: 1 on 12/01/2019 by Judith Condon, DO at [facility] Right: Shoulder [employer] 09/16/2021 [id number] / / [id number] documented as of this encounter Visit Diagnoses Diagnosis Type 2 diabetes mellitus with hemoglobin A1c goal of less than 7.0% (HCC)- Primary Type 2 diabetes mellitus with hemoglobin A1c goal of less than 7.0% (HCC)- Primary documented in this encounter Additional Health [...] the patient have Health Care Power of Subway Repair Supervisor? No Care Teams Food Aide Relationship Specialty Start Date End Date Velasquez Valencia MD [address] [place] [address] PCP - General Family Medicine 09/09/22 documented as of this encounter
--- OUTSIDE RECORDS SUMMARY | 2023-09-19 09:27 | External Medical Summary ---
Author Name Unknown Address Unknown Organization [id number]:[facility] [place] - [address] [facility] [address] Laboratory Report Ordering Provider Test Date Status CHRIST DUFFY 08/03/2023 08:46:35 Final Observation Date Value Abnormality Reference (Units ) Status HbA1C 08/03/2023 08:46:35 9.3 Above high normal 4. 0-5.6 (%) Final The use of HbA1c to monitor glycemic status is based on normal hemoglobin and HbA composition. This test should not be used in patients with abnormal hemoglobin that affects the half life of the red blood cell or the in vivo glycation rates. Glucose, estimated average 08/03/2023 08:46:35 220 Above high normal <126 (mg/dL) Ethan gillette Performing Location [facility] [place] - [address] [facility] [address]
--- OUTSIDE RECORDS SUMMARY | 2023-09-19 09:27 | External Medical Summary | Summary of Care ---
Author Name Unknown Organization [facility] Address [address] [place] [address] Phone [phone] Care Team Providers [facility] Chief Financial Officer Name Role Phone Velasquez Valencia MD Primary Care Provider +1- [phone] Reason for Visit * Reason Comments Outpatient Testing Encounter Details Date Type Department Care Team Description 07/09/2023 Laboratory Laboratory, [place] [address] [place] [address] [facility] [address] [place] [address] Type 2 diabetes mellitus with diabetic autonomic neuropathy, with long-term current use of insulin (HCC); Diabetes mellitus with nephropathy (HCC) Allergies Active Allergy Reactions Severity Noted Date Comments Cefaclor Unknown 07/26/2018 As child Empagliflozin Other (Please comment) 05/16/2021 DKA with hospitalization documented as of this encounter (statuses as of 07/09/2023) Medications Medication Sig Dispensed Refills Start Date End Date Status Diclofenac Sodium (VOLTAREN) 1 % gel Place 2 g topically on the skin 2 times a day. To affected area as directed. 100 g 5 01/12/2020 Active docusate sodium (RA COL-RITE) 100 MG Capsule Take 1 Cap by mouth 2 times a day as needed for Constipation. 60 Cap 3 05/07/2020 Active Advil Dual Action 125-250 MG Oral Tablet (Ibuprofen-Acetami nophen) Take 3 Tablets by mouth 2 times a day. 0 Active Losartan Potassium 50 MG Oral Tablet (Cozaar)Indication s:HTN, goal below 140/90 take 1 tablet by mouth once daily 90 Tablet 3 07/21/2022 Active CPAP every night at bedtime. 0 Active Albuterol Sulfate HFA 108 (90 Base) MCG/ACT Inhalation Aerosol SolutionIndication s:RSV bronchitis inhale 2 puffs by mouth and INTO THE LUNGS every 6 hours if needed for cough shortness of breath or WITHDRAWAL SYMPTOMS 54 g 3 10/29/2022 Active Metoprolol Succinate ER 50 MG Oral Tablet Extended Release 24 Hour (toPROL XL)Indications:Sin us tachycardia Take 1 and a half tablet by mouth daily 135 Tablet 3 01/05/2023 Active Pantoprazole Sodium 40 MG Oral Tablet Delayed Release (Protonix) take 1 tablet by mouth twice a day 180 Tablet 1 01/07/2023 Active oxygen IN GAS Use 2 L/min(Oxygen) as directed at bedtime. 0 Active Budesonide-Formote rol Fumarate 80-4.5 MCG/ACT Inhalation Aerosol (Symbicort) Inhale 2 Puffs by mouth in the morning and 2 Puffs before bedtime. 10.2 g 12 01/27/2023 Active polyethylene glycol 3350 119 gram OR POWD Take 119 g by mouth once. 0 Active Famotidine 20 MG Oral Tablet (Pepcid) Take 1 Tablet by mouth every night at bedtime. 90 Tablet 3 04/24/2023 Active Gabapentin 100 MG Oral Capsule (Neurontin)Indicat ions:Neuropathy take 1 capsule by mouth every morning and 2 capsules by mouth at bedtime 270 Capsule 1 05/10/2023 Active Cyclobenzaprine HCl 10 MG Oral Tablet (Flexeril)Indicati ons:Lumbar disc herniation take 1 tablet by mouth at bedtime ONLY if needed 30 Tablet 1 05/10/2023 Active Dicyclomine HCl 10 MG Oral Capsule (Bentyl) take 1 capsule by mouth four times a day 360 Capsule 3 05/10/2023 Active Metoclopramide HCl 10 MG Oral Tablet (Reglan) take 1 tablet by mouth three times a day ( 30 MINUTES before MEALS ) 270 Tablet 1 05/10/2023 Active Amoxicillin 500 MG Oral Tablet 1 Tablet in the morning and 1 Tablet at noon and 1 Tablet before bedtime. 0 05/23/2023 Active Doxycycline Hyclate 100 MG Oral Tablet 1 Tablet in the morning and 1 Tablet before bedtime. 0 05/23/2023 Active Magnesium Oxide 400 MG Oral Tablet 1 Tablet daily. 0 05/23/2023 A ctive metFORMIN HCl 500 MG Oral Tablet (Glucophage)Indica tions:Type 2 diabetes mellitus with hemoglobin A1c goal of less than 7.0% (HCC) TAKE 2 TABLETS BY MOUTH IN THE MORNING AND IN THE EVENING 360 Tablet 3 06/18/2023 Active Insulin Glargine [...] times daily 400 Each 3 06/18/2023 Active Mounjaro 10 MG/0.5ML Subcutaneous Solution Pen-injector (Tirzepatide)Indic ations:Type 2 diabetes mellitus with hemoglobin A1c goal of less than 7.0% (HCC) Inject 10 mg under the skin once a week. Dose increase 2 mL 0 07/08/2023 4 Active Hospital, Clinic, or Other Facility Administered Medication Ordered Dose Route Frequency Start Date End Date Status Albuterol Sulfate (Proventil) (5 MG/ML) 0.5% *conc* inhalation solution 2.5 mgIndications:Chronic respiratory failure with hypercapnia (HCC) 2.5 mg NEBULIZER PRN 12/01/2022 12/01/2023 Ac tive documented as of this encounter (statuses as of 07/09/2023) Active Problems Problem Noted Date COPD, moderate 05/25/2023 Neuropathy 02/24/2023 Restrictive lung disease secondary to ob esity 01/27/2023 Obstructive sleep apnea 11/02/2022 Body mass index (BMI) of 40.0 to 44.9 in adult 10/26/2022 Overview: Per Obesity protocol Lumbar disc herniation 10/20/2022 Chronic respiratory failure with hyperca pnia 10/16/2022 Precordial pain 11/30/2021 Type 2 diabetes mellitus with autonomic neuropathy 10/23/2021 Gastroesophageal reflux disease without esophagitis 05/07/2020 DDD (degenerative disc disease), cervica l 07/12/2019 Cervical spinal stenosis 07/12/2019 History of DVT (deep vein thrombosis) Obesity, Class II, BMI 35-39.9, isolated (see actual BMI) 04/19/2019 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 ICD-10 update of inactive term documented as of this encounter (statuses as of 07/09/2023) Resolved Problems Problem Noted Date Resolved Date Fracture of nasal bones, ini tial encounter for closed fracture 10/23/2021 10/20/2022 Neuropathy 10/23/2021 10/20/2022 Diabetic ketoacidosis withou t coma associated with type 2 diabetes mellitus 03/02/2021 07/04/2021 Intellectual disability 10/25/2019 10/23/19 22 HTN, goal below 130/80 12/18/2017 3 Leg DVT (deep venous thromboembolism), acute, le ft 10/15/2017 04/19/2019 DM type 2, goal: symptom mgmt 09/13/2017 HTN, goal: symptom mgmt only 09/13/201712/2017 Cellulitis of left foot 09/10/2017 10/15/20 17 Abscess of left foot 09/10/2017 10/15/2017 Type 2 diabetes mellitus wit h hemoglobin A1c goal of less than 8.0% 07/05/2017 09/13/2017 Major depressive disorder, r ecurrent, severe without psychotic features 12/22/2016 09/14/2022 Non-cardiac chest pain 07/24/2016 7 Esophagitis 07/24/2016 07/05/2017 DM type 2, not at goal 07/24/2016 7 HTN, goal below 140/90 12/23/2015 7 Overview: Per HTN Protocol #27. Pulmonary embolism and infarction 10/08/2015 10/23/2015 ARF (acute renal failure) 05/07/20152016 Major depressive disorder, recurrent episode, mo derate 05/07/2015 12/22/2016 HTN, GOAL BELOW 140/80 06/06/2012 6 Overview: Per HTN Protocol #27. Severe obesity with body mas s index (BMI) of 35.0 to 39.9 with serious comorbidity 01/13/2010 04/22/2017 Overview: Per Obesity Taxonomy ICD-10 update of inactive diagnosis HTN, GOAL BELOW 130/80 11/14/2009 2 Overview: Per HTN Taxonomy. Diabetic polyneuropathy 04/12/2007 07/24/20 16 Overview: ICD-10 update of inactive term DM type 2, not at goal 12/01/2005 8 ADVANCE DIRECTIVE INFORMATION 07/07/2005 Overview: No, Advance Directive brochure offered , patient declined. . OBESITY, UNSPECIFIED 12/15/2002 01/13/2010 Overview: Per Obesity Taxonomy HTN, goal below 140/90 12/15/2002 0 Overview: Per HTN Taxonomy. LOC PRIM OSTEOARTH- right ANKLE 07/18/2002 04/22/2017 Tobacco use disorder 02/03/2001 07/24/2016 DM type 2, not at goal 9 Overview: Modified per Diabetes protocol #14. OTHER 04/22/2017 Overview: osseochondrosis ankle Primary localized osteoarthrosis, lower leg 10/15/2017 documented as of this encounter (statuses as of 07/09/2023) Immunizations Name Administration Dates Next Due COVID-19 mRNA, LNP-s, No Pre serve, 2-Dose Series (Pfizer) 10/21/2021,03/01/2021,02/07/2021 H1N1 2009 Influenza, IM 11/04/2009 Pneumococcal Conjugate Vacci ne, 20-valent ([id number]) 07/09/2023 Pneumococcal Polysaccharide PPV23 (Pneumovax) 11/03/2015,02/09/2006 Seasonal Influenza, PF, 6 mo ns & Above, IM , (Flulaval) 07/09/2023,10/16/2022,07/31/2021,09/16,07/12/2019,07/05/2018 Seasonal Influenza, Quadriva lent, No Preserve, [...] 1 beer in the past two years Alcohol Habits Answer Date Recorded How often do you have a drink containing alcohol ? Never 05/24/2019 How many drinks containing a lcohol do you have on a typical day when you are drinking? Not asked How often do you have six or more drinks on one occasion? Not asked Food Insecurity Answer Date Recorded Within the past 12 months, y ou worried that your food would run out before you got money to buy more. Never true 02/24/2023 Within the past 12 months, t he food you bought just didn't last and you didn't have money to get more. Never true 02/24/2023 Sex Assigned at Date Recorded Not on file Job Start Date Occupation Industry Not on [...] or making decisions? (5 years old or older No 11/30/2021 documented as of this encounter Plan of Treatment Upcoming Encounters Date Type Specialty Care Team Description 08/13/2023 Telemedicine Pharmacy [facility] [address] [facility] [place] [address] 09/30/2023 Procedure Only Endoscopy Janak Aldrich MD [address] [place] [address] 12/14/2023 Office Visit Family Medicine Velasquez Valencia MD [address] [place] [facility] [place] [address] Pending Results Name Type Priority Associated Diagnoses Date /Time HEMOGLOBIN A1C Lab Routine Type 2 diabetes mellitus with diabetic autonomic neuropathy, with long-term current use of insulin (HCC) 07/09/2023 9:58 AM EDT COMPREHENSIVE METABOLIC PANEL Lab Routine Diabetes mellitus with nephropathy (HCC) 07/09/2023 9:58 AM EDT Health Maintenance Due Date Last Done Comments Hepatitis B (1 of 3 - 3-dose series) 1973 HIV Screening 1988 Alpha-1 Antitrypsin 1991 Hepatitis C Screening 1991 COVID-19 Vaccine (4 - Pfizer series) 12/16/2021 10/21/2021, 03/01/2021, 02/07/2021 DIABETES-EYE EXAM 03/07/2022 03/07/2021, , 08/21/2008 (Unable to do), Additional history exists HbA1c 07/08/2023 01/05/2023, 09/17, 12/01/2021, Additional history exists DISCUSS TOBACCO CESSATION (REFER TO SMARTSET #3291) 10/16/2023 10/16/2022 Albumin/Creatinine Ratio 01/06/2024 023, 09/01/2021, 05/07/2015, Additional history exists GFR 02/08/2024 02/07/2023, 12/17, 01/13/2022, Additional history exists Depression Screening 02/25/2024 02/24/2023 O2 ASSESSMENT COMPLETED IN PAST YEAR FOR COPD 05/25/2024 05/25/2023 Diabetic Foot Exam 07/09/2024 07/09/2023, 0 03/07/2021, 11/27/2019, Additional history exists Lipid Panel 01/06/2028 01/05/2023, 08/18, 01/08/2011, Additional [...] this encounter Medical Devices Implanted Type Area Bisque Grader Device Identifier Shelf Expiration Date Model / Serial / Lot Suture [place] Dbl Load 5.5mm - [id number] Implanted:Qty: 1 on 12/01/2019 by Judith Condon, at OR [facility] Right: Shoulder [employer] 09/16/2021 [id number] / / [id number] documented as of this encounter Visit Diagnoses Diagnosis Type 2 diabetes mellitus with diabetic autonomic neuropathy, with long-term current use of insulin (HCC) Diabetes mellitus with nephropathy (HCC) Type II or unspecified type diabetes mellitus with renal manifestations, not stated as uncontrolled documented in this encounter Advance Directives Latest Code Status [...] the patient have Health Care Power of Engineering Instructor? No Care Teams Hospital Chief Financial Officer Relationship Specialty Start Date End Date Velasquez Valencia MD [address] [place] [address] PCP - General Family Medicine 09/09/22 documented as of this encounter
--- OUTSIDE RECORDS SUMMARY | 2023-09-19 09:27 | External Medical Summary ---
Author Name Unknown Address Unknown Organization K01:[facility] [place] - [address] [place] [address] Laboratory Report Ordering Provider Test Date Status JOHNJOSELINEAshley 07/09/2023 09:58:52 Final Observation Date Value Abnormality Reference (Units ) Status HbA1C 07/09/2023 09:58:52 9.1 Above high normal 4. 0-5.6 (%) Final The use of HbA1c to monitor glycemic status is based on normal hemoglobin and HbA composition. This test should not be used in patients with abnormal hemoglobin that affects the half life of the red blood cell or the in vivo glycation rates. Glucose, estimated average 07/09/2023 09:58:52 214 Above high normal <126 (mg/dL) Ethan gillette Performing Location [facility] [place] - [address] [place] [address]
--- OUTSIDE RECORDS SUMMARY | 2023-09-19 09:27 | External Medical Summary | Summary of Care ---
Author Name Unknown Organization [facility] Address [address] [place] [address] Phone [phone] Care Team Providers Care Medical Billing Coder Name Role Phone Velasquez Valencia MD Primary Care Provider +1- [phone] Reason for Visit * Reason Onset Date Comments Advice 07/26/2023 Order Request 07/26/2023 Encounter Details Date Type Department Care Team Description 07/26/2023 Telephone Pulmonary Medicine, [facility] [address] [facility] [place] [address] Vishal Wallace MD [address] [facility] [place] [address] Advice; Order Request Allergies Active Allergy Reactions Severity Noted Date Comments Cefaclor Unknown 07/26/2018 As child Empagliflozin Other (Please comment) 05/16/2021 DKA with hospitalization documented as of this encounter (statuses as of 07/26/2023) Medications Medication Sig Dispensed Refills Start Date [...] at bedtime 270 Capsule 1 05/10/2023 Active Dicyclomine HCl 10 MG [...] increase 2 mL 0 07/08/2023 4 Active Cyclobenzaprine HCl 10 MG Oral Tablet (Flexeril)Indicati ons:Lumbar disc herniation TAKE 1 TABLET BY MOUTH AT BEDTIME only if NEEDED 30 Tablet 1 07/09/2023 Active Hospital, Clinic, or Other Facility Administered Medication Ordered Dose Route Frequency Start Date End Date Status Albuterol Sulfate (Proventil) (5 MG/ML) 0.5% *conc* inhalation solution 2.5 mgIndications:Chronic respiratory failure with hypercapnia (HCC) 2.5 mg NEBULIZER PRN 12/01/2022 12/01/2023 Ac tive documented as of this encounter (statuses as of 07/26/2023) Active Problems Problem Noted Date COPD, moderate [...] as of this encounter (statuses as of 07/26/2023) Resolved Problems Problem Noted Date Resolved Date [...] as of this encounter (statuses as of 07/26/2023) Immunizations Name Administration Dates Next Due COVID-19 mRNA, LNP-s, No Pre serve, 2-Dose Series (Pfizer) 10/21/2021,03/01/2021,02/07/2021 H1N1 2009 Influenza, IM 11/04/2009 Pneumococcal Conjugate Vacci ne, 20-valent ([id number]) 07/09/2023 Pneumococcal Polysaccharide PPV23 (Pneumovax) 11/03/2015,02/09/2006 SEASONAL [...] encounter Miscellaneous Notes * Telephone Encounter - Rubia Taylor LPN - 07/26/2023 2:10 PM EDT Order sent to [facility]. * Telephone Encounter - DAMION Aparicio - 07/26/2023 1:29 PM EDT El from [facility] calling to ask if the order for oxygen was received. If so he asks that it be completed and signed and faxed to [phone]. Please call [phone] documented in this encounter Plan of Treatment Upcoming Encounters Date Type Specialty Care Team Description 08/13/2023 Telemedicine Pharmacy [facility] [address] [address] 09/30/2023 Procedure Only Endoscopy Janak Aldrich MD [address] [place] [address] 12/14/2023 Office Visit [facility] [address] [facility] [address] Health Maintenance Due Date Last Done Comments Hepatitis B (1 of 3 - 3-dose series) 1973 HIV Screening 1988 Alpha-1 Antitrypsin 1991 Hepatitis C Screening 1991 DIABETES-EYE EXAM 03/07/2022 03/07/2021, , 08/21/2008 (Unable to do), Additional history exists COVID-19 Vaccine ( season) 2023 10/21/2021, 03/01/2021, 02/07/2021 DISCUSS TOBACCO CESSATION (REFER TO SMARTSET #3291) 10/16/2023 10/16/2022 Albumin/Creatinine Ratio 01/06/2024 023, 09/01/2021, 05/07/2015, Additional history exists HbA1c 01/07/2024 07/09/2023, 12/17, 09/28/2022, Additional history exists Depression Screening 02/25/2024 02/24/2023 Diabetic Foot Exam 07/09/2024 07/09/2023, 0 03/07/2021, 11/27/2019, Additional history exists GFR 07/09/2024 07/09/2023, 01/17, 01/05/2023, Additional history exists O2 ASSESSMENT COMPLETED IN PAST YEAR FOR COPD 07/09/2024 07/09/2023 Lipid Panel 01/06/2028 01/05/2023, 08/18, 01/08/2011, Additional [...] this encounter Medical Devices Implanted Type Area Cytologist Device Identifier Shelf Expiration Date Model / Serial / Lot Suture [place] Dbl Load 5.5mm - [id number] Implanted:Qty: 1 on 12/01/2019 by Judith Condon, at OR [facility] Right: Shoulder [employer] 09/16/2021 [id number] -[id number] / / [id number] documented as of this encounter Advance Directives [...] the patient have Health Care Power of Slipper Maker? No Care Teams Medical Billing Coder Relationship Specialty Start Date End Date Velasquez Valencia MD [address] [place] [address] PCP - General Family Medicine 09/09/22 documented as of this encounter
--- OUTSIDE RECORDS SUMMARY | 2023-09-19 09:27 | External Medical Summary | Summary of Care ---
Author Name Unknown Organization [facility] Address [address] [facility] [place] [address] Phone [phone] Care Team Providers Care Making Department Preparer Name Role Phone Velasquez Valencia MD Primary Care Provider +1- [phone] Encounter Details Date Type Department Care Team (Late st Contact Info) Description 09/07/2023 Population Health External Data Unspecified Department Allergies Active Allergy Reactions Criticality Noted Date Comments Cefaclor Unknown 07/26/2018 As child Empagliflozin Other (Please comment) 05/16/2021 DKA with hospitalization documented as of this encounter (statuses as of 09/07/2023) Medications Medication Sig Dispensed Refills Start Date [...] as of this encounter (statuses as of 09/07/2023) Active Problems Problem Noted Date Diagnosed Date COPD, moderate 05/25/2023 Neuropathy 02/24/2023 Restrictive [...] as of this encounter (statuses as of 09/07/2023) Resolved Problems Problem Noted Date Diagnosed Date [...] as of this encounter (statuses as of 09/07/2023) Immunizations Name Administration Dates Next Due COVID-19 mRNA, LNP-s, No Pre serve, 2-Dose Series ([employer]) 10/21/2021,03/01/2021,02/07/2021 H1N1 2009 Influenza, IM 11/04/2009 Pneumococcal Conjugate Vacci ne, 20-valent ([id number]) 07/09/2023 Pneumococcal Polysaccharide PPV23 (Pneumovax) 11/03/2015,02/09/2006 SEASONAL [...] Care Team (Late st Contact Info) Description 09/08/2023 12:40 PM EST Office Visit [facility] [address] [place] [facility] [place] [address] FebruaryRed MD [address] [facility] [address] 09/10/2023 11:40 AM EST Telemedicine Pharmacy, [place] [address] [place] [facility] [place] [address] [facility] [address] [place] [facility] [place] [place] [address] 09/30/2023 9:00 AM EST Procedure Only Endoscopy, [facility] [address] [place] [address] Janak Aldrich MD [address] [place] [address] 12/14/2023 10:40 AM EST Office [facility] [address] [facility] [phone] [facility]quez [facility] [address] [facility] [address] Health Maintenance Due Date Last Done Comments Hepatitis B (1 of 3 - 3-dose series) 1973 HIV Screening 1988 Alpha-1 Antitrypsin 1991 Hepatitis C Screening 1991 Diabetic Eye Exam 03/07/2022 03/07/2021, , 08/28/2010, Additional history exists COVID-19 Vaccine ( season) 2023 10/21/2021, 03/01/2021, 02/07/2021 DISCUSS TOBACCO CESSATION (REFER TO SMARTSET #5161) 10/16/2023 10/16/2022 Albumin/Creatinine Ratio 01/06/2024 023, 09/01/2021, [...] this encounter Medical Devices Implanted Type Area Local Intermodal Truck Driver Device Identifier Shelf Expiration Date Model / Serial / Lot Suture [place] Dbl Load 5.5mm - [id number] Implanted:Qty: 1 on 12/01/2019 by Rahmi, Hithem, DO [facility] Right: Shoulder [employer] 09/16/2021 [id number] -[id number] / / [id number] documented as of this encounter Additional Health Concerns Infection Onset [...] the patient have Health Care Power of Stitch Bonding Machine Operator? No Care Teams Making Department Preparer Relationship Specialty Start Date End Date Velasquez Valencia MD [address] [place] [address] PCP - General Family Medicine 09/09/22 documented as of this encounter
--- OUTSIDE RECORDS SUMMARY | 2023-09-19 09:27 | External Medical Summary | Summary of Care ---
Author Name Unknown Organization [facility] Address [address] [place] [address] Phone [phone] Care Team Providers Care Scrap Drop Operator Name Role Phone Velasquez Valencia MD Primary Care Provider [phone] Reason for Visit * Reason Onset Date Comments Physical-Exam Medication Administration 07/09/2023 Flu an d/or Pneumo Inj Encounter Details Date Type Department Care Team Description 07/09/2023 Office Visit [facility] [address] [place] [address] Velasquez Valencia MD [address] [place] [address] Diabetes mellitus with nephropathy (HCC)*; Need for pneumococcal vaccination; Need for prophylactic vaccination and inoculation against influenza; Encounter for long-term (current) use of medications; COPD, moderate (HCC); Obstructive sleep apnea; Gastroesophageal reflux disease without esophagitis; Gastroparesis Allergies Active Allergy Reactions Severity Noted Date Comments Cefaclor Unknown 07/26/2018 As child Empagliflozin Other (Please comment) 05/16/2021 DKA with hospitalization documented as of this encounter (statuses as of 08/01/2023) Medications Medication Sig Dispensed Refills Start Date End Date Status Diclofenac Sodium (VOLTAREN) 1 % gel Place 2 g topically on the skin 2 times a day. To affected area as directed. 100 g 5 01/12/20 Active docusate sodium (RA COL-RITE) 100 MG Capsule Take 1 Cap by mouth 2 times a day as needed for Constipation. 60 Cap 3 05/07/20 20 Active CPAP every night at bedtime. 0 Active Albuterol Sulfate HFA 108 (90 Base) MCG/ACT Inhalation Aerosol SolutionIndicati ons:RSV bronchitis inhale 2 puffs by mouth and INTO THE LUNGS every 6 hours if needed for cough shortness of breath or WITHDRAWAL SYMPTOMS 54 g 3 10/29/19 23 Active Metoprolol Succinate ER 50 MG Oral Tablet Extended Release 24 Hour (toPROL XL)Indications:S inus tachycardia Take 1 and a half tablet by mouth daily 135 Tablet 3 01/06/20 23 Active Pantoprazole Sodium 40 MG Oral Tablet Delayed Release (Protonix) take 1 tablet by mouth twice a day 180 Tablet 1 01/08/20 23 Active oxygen IN GAS Use 2 L/min(Oxygen) as directed at bedtime. 0 Active Budesonide-Formo terol Fumarate 80-4.5 MCG/ACT Inhalation Aerosol (Symbicort) Inhale 2 Puffs by mouth in the morning and 2 Puffs before bedtime. 10.2 g 12 01/28/20 23 Active Famotidine 20 MG Oral Tablet (Pepcid) Take 1 Tablet by mouth every night at bedtime. 90 Tablet 3 04/24/20 23 Active Gabapentin 100 MG Oral Capsule (Neurontin)Indic ations:Neuropath y take 1 capsule by mouth every morning and 2 capsules by mouth at bedtime 270 Capsule 1 05/10/20 23 Active Dicyclomine HCl 10 MG Oral Capsule (Bentyl) take 1 capsule by mouth four times a day 360 Capsule 05/10/20 23 Active Metoclopramide HCl 10 MG Oral Tablet (Reglan) take 1 tablet by mouth three times a day ( 30 MINUTES before MEALS ) 270 Tablet 1 05/10/20 23 Active metFORMIN HCl 500 MG Oral Tablet (Glucophage)Yanet cations:Type 2 diabetes mellitus with hemoglobin A1c goal of less than 7.0% (HCC) Take 2 Tablets by mouth in the morning and 2 Tablets in the evening. 360 Tablet 3 06/18/20 23 Active Insulin Glargine Solostar 100 UNIT/ML Subcutaneous Solution Pen-injectorIndi cations:Type 2 diabetes mellitus with hemoglobin A1c goal of less than 7.0% (HCC) Inject 28 units in the morning and 40 units in the evening 75 mL 3 06/18/20 23 Active Insulin Aspart FlexPen 100 UNIT/ML Subcutaneous Solution Pen-injectorIndi cations:Type 2 diabetes mellitus with hemoglobin A1c goal of less than 7.0% (HCC) inject 16 units subcutaneously three times a day with meals 45 mL 3 06/18/20 23 Active Unifine Pentips 31G X 5 MM (Insulin Pen Needle)Indicatio ns:Type 2 diabetes mellitus with hemoglobin A1c goal of less than 7.0% (HCC) Use as directed 4 times daily 400 Each 3 06/18/20 23 Active Mounjaro 10 MG/0.5ML Subcutaneous Solution Pen-injector (Tirzepatide)Ind ications:Type 2 diabetes mellitus with hemoglobin A1c goal of less than 7.0% ([facility]) Inject 10 mg under the skin once a week. Dose increase 2 mL 0 07/08/20 23 024 Active Advil Dual Action 125-250 MG Oral Tablet (Ibuprofen-Aceta minophen) Take 3 Tablets by mouth 2 times a day. 0 023 Discontinued(Me dication List Clean Up) Losartan Potassium 50 MG Oral Tablet (Cozaar)Indicati ons:HTN, goal below 140/90 take 1 tablet by mouth once daily 90 Tablet 3 07/21/20 22 023 Discontinued(Re fill) polyethylene glycol 3350 119 gram OR POWD Take 119 g by mouth once. 0 023 Discontinued(Me dication List Clean Up) Cyclobenzaprine HCl 10 MG Oral Tablet (Flexeril)Indica tions:Lumbar disc herniation take 1 tablet by mouth at bedtime ONLY if needed 30 Tablet 1 05/10/20 23 023 Discontinued Amoxicillin 500 MG Oral Tablet 1 Tablet in the morning and 1 Tablet at noon and 1 Tablet before bedtime. 0 05/23/20 23 023 Discontinued(Me dication List Clean Up) Doxycycline Hyclate 100 MG Oral Tablet 1 Tablet in the morning and 1 Tablet before bedtime. 0 05/23/20 23 023 Discontinued(Me dication List Clean Up) Magnesium Oxide 400 MG Oral Tablet 1 Tablet daily. 0 05/23/20 23 023 Discontinued(De dication List Clean Up) Hospital, Clinic, or Other Facility Administered Medication Ordered Dose Route Frequency Start Date End Date Status Albuterol Sulfate (Proventil) (5 MG/ML) 0.5% *conc* inhalation solution 2.5 mgIndications:Chronic respiratory failure with hypercapnia (HCC) 2.5 mg NEBULIZER PRN 12/01/2022 12/01/2023 Ac tive documented as of this encounter (statuses as of 08/01/2023) Active Problems Problem Noted Date COPD, moderate [...] as of this encounter (statuses as of 08/01/2023) Resolved Problems Problem Noted Date Resolved Date [...] as of this encounter (statuses as of 08/01/2023) Immunizations Name Administration Dates Next Due COVID-19 mRNA, LNP-s, No Pre serve, 2-Dose Series (Pfizer) 10/21/2021,03/01/2021,02/07/2021 H1N1 2009 Influenza, IM 11/04/2009 Pneumococcal Conjugate Vacci ne, 20-valent ([id number]) 07/09/2023 Pneumococcal Polysaccharide PPV23 (Pneumovax) 11/03/2015,02/09/2006 SEASONAL [...] Sign Reading Time Taken Comments Blood Pressure 124/70 07/09/2023 8:59 AM EDT Pulse 103 07/09/2023 8:59 AM EDT Temperature 36.4 C (97.5 F) 07/09/2023 8:59 AM ED T Respiratory Rate 24 07/09/2023 8:59 AM EDT Oxygen Saturation 95% 07/09/2023 8:59 AM EDT Inhaled Oxygen Concentration - - Weight 151.7 kg (334 lb 6.4 oz) 07/09/2023 8:59 AM EDT Height 189.2 cm (6' 2.5") 07/09/2023 8:59 AM EDT Body Mass Index 42.36 07/09/2023 8:59 AM EDT documented in this encounter Functional Status Functional [...] (15 years old or older) No 11/30/19 22 Cognitive Status Response Date of Assessm ent Because of a physical, menta l, or emotional condition, do you have serious difficulty concentrating, remembering, or making decisions? (5 years old or older No 11/30/2021 documented as of this encounter Patient Instructions * Patient Instructions* Radha Fair, JAIRO - 07/09/2023 9:06 AM EDT Diabetes: Keeping Feet Healthy Inspect your feet every day for signs of a problem. Diabetes can damage nerves in your feet and cause neuropathy. This condition makes it hard for you to feel injuries or sore spots. Diabetes can also change blood flow, making it harder for small problems, like a blister, to heal properly. In fact, minor injuries can quickly become serious infections that send you to the hospital. Practice self-care to protect your feet and keep them healthy. Take Special Care Inspect your feet daily for problems such as redness, blisters, cracks, dry skin, or numbness. Use a mirror to see the bottoms of your feet. Or, ask for help. Manage your diabetes. Monitor and control your blood sugar. Take all your medications as prescribed. Avoid walking barefoot, even indoors. Wash your feet with warm water and mild soap. Dry well, especially between toes. Dont treat corns or calluses yourself. Talk to your doctor or drilling inspector (a doctor who specializes in foot care) if you need assistance trimming your toenails. Use moisturizing cream or lotion if you have dry skin, but dont use it between toes. Dont use heating pads on your feet. If you have neuropathy, you could get a burn and not feel it. Stop smoking. Smoking restricts blood flow and can make it harder for wounds to heal. Have Regular Checkups Foot problems can develop quickly. So be sure to follow your healthcare teams schedule for regular checkups. During office visits, take off your shoes and socks as soon as you get in the exam room. Ask your healthcare provider to examine your feet for problems. This will make it easier to find and treat small skin irritations before they get worse. Regular checkups can also help keep track of the blood flow and feeling in your feet. If you have neuropathy, you may need to have checkups more often. Wear Proper Footwear Wearing proper footwear is very important. If areas of your feet have been damaged by too much pressure, your healthcare provider may recommend changing your footwear. In some cases, avoiding high heels or tight work boots may be all thats needed. Or, your healthcare provider may recommend special shoes or custom inserts. These help protect your feet and keep existing irritations from getting worse. If you need special footwear, ask your healthcare provider if you qualify for [employer] diabetic shoe program. Make Sure Shoes and Socks Fit Any pair of shoes--new or old--should feel comfortable as soon as you put them on. There shouldnt be any rubbing when you walk. Wear the right shoe for any activity. For instance, a running shoe is designed to keep your feet injury-free while jogging. Buy shoes at the end of the day, when your feet are larger. Make sure they provide support without feeling too loose. Make sure your socks fit, t oo. Wear soft, seamless, well-padded socks for activity. Cotton or microfiber socks are best to help to absorb sweat. To protect your feet, avoid shoes that are open-toed or open-heeled. If you have questions about what kinds of shoes and socks are best, talk to your healthcare team. Get Regular Exercise Regular exercise improves blood flow in your feet. It also increases foot strength and flexibility.Gentle exercises, like walking or riding a stationary bicycle, are best. You can also do special foot exercises. Just be sure to talk with your healthcare provider before starting any exercise program. Also mention if any exercise causes pain, redness, or other signs of foot problems. Note: If you have any kind of break in the skin of your foot or ankle, keep the area clean. Then call your doctor--especially if the area doesnt appear to be healing. [id number] [employer], [address] [place] [address], [place] [address]. All rights reserved. This information is not intended as a substitute for professional medical care. Always follow your healthcare professional's instructions. ~~PATIENT INSTRUCTIONS FOR FLU SHOT~~ Possible side effects of influenza vaccine, (flu shot), are usually mild and include: 1. Soreness or redness at injection site 2. Low grade fever 3. Body aches You may use Tylenol/Acetaminophen as needed for these symptoms. LET YOUR DOCTOR KNOW IMMEDIATELY IF YOU HAVE DIFFICULTY BREATHING OR SWALLOWING, EXPERIENCE ITCHINGOF FEET OR HANDS, HAVE SWELLING OF EYES, FACE OR INSIDE OF NOSE. documented in this encounter Progress Notes * Velasquez Valencia MD - 07/09/2023 9:19 AM EDT Subjective: Bry Akhtar Jr. is a 47 year old male here today for Chief Complaint Patient presents with Physical-Exam Medication Administration Flu and/or Pneumo Inj Patient presents for routine return. He believes he is tolerating his current medications. Has not had any increased GI problems with use of Mounjaro. He does continue to have a variety of gastrointestinal symptoms related to his gastroesophageal reflux, gastroparesis, irritable bowel syndrome. Continues to have upper GI symptoms despite pantoprazole. Is scheduled to have a colonoscopy at the hospital in September. Is considering a change to [facility] order [facility]. Reviewed most recent labs and specialty visits. 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 Current use of insulin ([facility]) 09/13/2017 DDD (degenerative disc disease), cervical 07/12/2019 Diabetes mellitus type 2, insulin dependent ([facility]) 07/05/2017 Diabetic polyneuropathy associated with type 2 diabetes mellitus ([facility]) 07/24/2016 Displacement of lumbar intervertebral disc without myelopathy DM type 2, goal: symptom mgmt ([facility]) 09/13/2017 DM type 2, not at goal ([facility]) Dyslipidemia, goal LDL below 70 07/24/2016 Gastroesophageal reflux disease without esophagitis 05/07/2020 Gastroparesis 08/27/2015 GERD (gastroesophageal reflux disease) History of DVT (deep vein thrombosis) 04/19/2019 HTN, goal below 140/90 12/23/2015 Per HTN Protocol #27. HTN, goal: symptom mgmt only 09/13/2017 IBS (irritable bowel syndrome) 08/27/2015 Intellectual disability 10/25/2019 Major depressive disorder, recurrent, severe without psychotic features ([facility]) 12/22/2016 Obesity, Class II, BMI 35-39.9, isolated (see actual BMI) 04/19/2019 OTHER osseochondrosis ankle Primary localized osteoarthrosis, lower leg Sleep apnea, obstructive Tobacco use disorder 12/22/2016 Type 2 diabetes mellitus with hemoglobin A1c goal of less than 8.0% ([facility]) 07/05/2017 Past Surgical History: Procedure Laterality Date ARTHOTOMAS,W/ROTATOR CUFF Right 12/01/2019 ARTHROSCOPY SHOULDER ROTATOR CUFF performed by Judith Condon DO at OR [facility] COLONOSCOPY, DIAGNOSTIC (RECTUM) 04/18/2015 adenomatous polyp, repeat 5 yrs/[facility] COLONOSCOPY, DIAGNOSTIC (RECTUM) 04/15/2023 poor prep, repeat / [facility] EGD, FLEXIBLE, DIAGNOSTIC 10/17/2014 mild-mod inflammation, repeat 1-2 mo/[facility] EGD, FLEXIBLE, DIAGNOSTIC 04/17/2015 normal bx/inpt [facility] EGD, FLEXIBLE, DIAGNOSTIC 05/08/2019 reflux esophagitis, gastritis, duodenitis, repeat 6 wks / [facility] EGD, FLEXIBLE, DIAGNOSTIC 08/18/2019 normal-EGD/[place] EGD, FLEXIBLE, DIAGNOSTIC N/A 05/02/2020 biopsies normal/EGD INJECT DX/THER SUBSTANCE INTERLAMINAR CERVICAL/THORACIC W IMAGE GUIDE 08/17/2019 INJECTION SPINE LUMBAR CERVICAL OR THORACIC performed by Dario Nails DO at OR [facility] KNEE ARTHROSCOPY, DIAGNOSTIC l knee REMOVAL OF TONSILS, UNDER AGE 10 SHOULDER ARTHROSCOPY, BICEPS TENODESIS Right 12/01/2019 ARTHROSCOPY SHOULDER BICEP TENODESIS performed by Judith Condon DO at OR [facility] SHOULDER ARTHROSCOPY/DECOMPRESSION Right 12/01/2019 ARTHROSCOPY SHOULDER SUBACROMIAL DECOMPRESSION performed by Judith Condon DO at OR [facility] Review of patient's allergies indicates: Allergen Reactions Ceclor [Cefaclor] Unknown As child Jardiance [Empagliflozin] Other (Please comment) DKA with hospitalization Current Outpatient Medications Medication Sig Dispense Refill Diclofenac Sodium (VOLTAREN) 1 % gel Place 2 g topically on the skin 2 times a day. To affected area as directed. 100 g 5 docusate sodium (RA COL-RITE) 100 MG Capsule Take 1 Cap by mouth 2 times a day as needed for Constipation. 60 Cap 3 CPAP every night at bedtime. Albuterol Sulfate HFA 108 (90 Base) MCG/ACT Inhalation Aerosol Solution inhale 2 puffs by mouth andINTO THE LUNGS every 6 hours if needed for cough shortness of breath or WITHDRAWAL SYMPTOMS 54 g 3 Metoprolol Succinate ER 50 MG Oral Tablet Extended Release 24 Hour (toPROL XL) Take 1 and a half tablet by mouth daily 135 Tablet 3 Pantoprazole Sodium 40 MG Oral Tablet Delayed Release (Protonix) take 1 tablet by mouth twice a [id number] Tablet 1 oxygen IN GAS Use 2 L/min(Oxygen) as directed at bedtime. Budesonide-Formoterol Fumarate 80-4.5 MCG/ACT Inhalation Aerosol (Symbicort) Inhale 2 Puffs by mouth in the morning and 2 Puffs before bedtime. 10.2 g 12 Famotidine 20 MG Oral Tablet (Pepcid) Take 1 Tablet by mouth every night at bedtime. 90 Tablet 3 Gabapentin 100 MG Oral Capsule (Neurontin) take 1 capsule by mouth every morning and 2 capsules by mouth at bedtime 270 Capsule 1 Dicyclomine HCl 10 MG Oral Capsule (Bentyl) take 1 capsule by mouth four times a day 360 Capsule 3 Metoclopramide HCl 10 MG Oral Tablet (Reglan) take 1 tablet by mouth three times a day ( 30 MINUTESbefore MEALS ) 270 Tablet 1 metFORMIN HCl 500 MG Oral Tablet (Glucophage) Take 2 Tablets by mouth in the morning and 2 Tablets in the evening. 360 Tablet 3 Insulin Glargine Solostar 100 UNIT/ML Subcutaneous Solution Pen-injector Inject 28 units in the morning and 40 units in the evening 75 mL 3 Insulin Aspart FlexPen 100 UNIT/ML Subcutaneous Solution Pen-injector inject 16 units subcutaneously three times a day with meals 45 mL 3 Unifine Pentips 31G X 5 MM (Insulin Pen Needle) Use as directed 4 times daily 400 Each 3 Mounjaro 10 MG/0.5ML Subcutaneous Solution Pen-injector (Tirzepatide) Inject 10 mg under the skin once a week. Dose increase 2 mL 0 Cyclobenzaprine HCl 10 MG Oral Tablet (Flexeril) TAKE 1 TABLET BY MOUTH AT BEDTIME only if NEEDED 30 Tablet 1 Losartan Potassium 50 MG Oral Tablet (Cozaar) Take 1 Tablet by mouth in the morning. 90 Tablet 3 Current Facility-Administered Medications Medication Dose Route Frequency Provider Last Rate Last Admin Albuterol Sulfate (Proventil) (5 MG/ML) 0.5% *conc* inhalation solution 2.5 mg 2.5 mg Nebulizer Esther Mendez PA-C 2.5 mg at 12/02/22 1327 Objective: BP 124/70 | Pulse 103 | Temp 36.4 C (97.5 F) (Tympanic) | Resp 24 | Ht 1.892 m (6' 2.5") | Wt (!) 151.7 kg (334 lb 6.4 oz) | SpO2 95% | BMI 42.36 kg/m | BSA 2.82 m GEN: NAD HEENT: Benign NECK: Supple with no LAD, TM, JVD CHEST: CTA B CV: RRR ABD: Soft, NT/ND, No HSM, NABS EXT: No c,c,e Assessment and Plan: Diabetes mellitus with nephropathy (HCC) (Primary) - DIABETES FOOT EXAM - COMPREHENSIVE METABOLIC PANEL; Future; Expected date: 07/09/2023 - HEMOGLOBIN A1C; Future; Expected date: 08/01/2023 - BASIC METABOLIC PANEL; Future; Expected date: 08/01/2023 -continue current treatments Need for pneumococcal vaccination - PNEUMOCOCCAL VACC, PCV20, IM ([id number]) Need for prophylactic vaccination and inoculation against influenza - INFLUENZA VACC, QUAD, PF, 6 MONTHS & UP, 0.5 ML, IM Encounter for long-term (current) use of medications - BASIC METABOLIC PANEL; Future; Expected date: 08/01/2023 - MAGNESIUM; Future; Expected date: 08/01/2023 COPD, moderate (HCC) Obstructive sleep apnea -continue current treatments. Breathing stable. Gastroesophageal reflux disease without esophagitis Gastroparesis -continue pantoprazole. ? If repeat EGD be considered in September with colo. Follow Up: Return in about 5 months (around 12/09/2023) for 4-6 months recheck. | For: 4-6 months recheck 32 min with pt and chart review Velasquez Valencia MD * Radha Fair LPN - 07/09/2023 9:04 AM EDT DM Foot Exam completed today. Provider aware. Radha Fair LPN Socks and Shoes Removed for Annual Diabetic Foot Screening RIGHT FOOT: No Reddened, Cracking, Or Open Areas Noted. RIGHT Dorsalis Pedis Pulse: Palpable RIGHT Posterior Tibial Pulse: Palpable RIGHT Monofilament:Patient reports difficulty feeling monofilament at Great toe- plantar surface LEFT FOOT: No Reddened, Cracking or Open Areas Noted. LEFT Dorsalis Pedis Pulse: Palpable LEFT Posterior Tibial Pulse: Palpable LEFT Monofilament:Patient reports feeling monofilament pressure on plantar surface of foot Do you need diabetic shoes: No PRE - ADMINISTRATION DOCUMENTATION Are you experiencing any cold symptoms or fever? No Have you had Guillain-Proctor Syndrome (an illness that causes paralysis) within the last 6 weeks? No Have you had the flu shot in the past? YES Have you ever had a reaction to the flu shot? No Radha Fair LPN, 07/09/2023 9:49 AM Immunization Administration Documentation Time Out Procedure Performed: Yes Patient Identified (Ask Name/Date of ): Yes Does the patient have a fever greater than 101 degrees today? No Patient allergic to latex? No VFC Stock: No Immunization(s) verified: Yes, Immunization Name: Flu, VIS Sheet(s) given: Yes Verified Side and Site: Yes Verified Shot(s) with Parent(s)/Patient: Yes documented in this encounter Nursing Notes * Radha Fair LPN - 07/09/2023 8:46 AM EDT The patient has been properly identified by confirmation of name and date of . Chief Complaint Patient presents with Physical-Exam documented in this encounter Plan of Treatment Upcoming Encounters Date Type Specialty Care Team Description 08/13/2023 Telemedicine Pharmacy [facility] [address] [place] [address] 09/30/2023 Procedure Only Endoscopy Janak Aldrich MD [address] [place] [address] 12/14/2023 Office Visit Family Medicine Velasquez Valencia MD [address] [place] [address] Scheduled Orders Name Type Priority Associated Diagnoses Orde r Schedule HEMOGLOBIN A1C Lab Routine Diabetes mellitus with nephropathy (HCC) Expected: 08/01/2023 (Approximate), Expires: 07/31/2024 BASIC METABOLIC PANEL Lab Routine Diabetes mellitus with nephropathy (HCC) Encounter for long-term (current) use of medications Expected: 08/01/2023 (Approximate), Expires: 07/31/2024 MAGNESIUM Lab Routine Encounter for long-term (current) use of medications Expected: 08/01/2023 (Approximate), Expires: 07/31/2024 Health Maintenance Due Date Last Done Comments [...] 11/27/2019, Additional history exists GFR 07/09/2024 07/09/2023, 042 12/2022, 01/05/2023, Additional history exists O2 ASSESSMENT COMPLETED [...] this encounter Medical Devices Implanted Type Area [employer] Worker Device Identifier Shelf Expiration Date Model / Serial / Lot Suture Dupuyer Dbl Load 5.5mm - [id number] Implanted:Qty: 1 on 12/01/2019 by Judith Condon, at OR [facility] Right: Shoulder [employer] 09/16/2021 [id number] / / [id number] documented as of this encounter Results * (ABNORMAL) COMPREHENSIVE METABOLIC PANEL (07/09/2023 9:58 AM EDT) BUN 19 6 - 20 mg/dL 07/09/2023 8:43 PM EDT [facility] Creatinine 0.8 0.6 - 1.2 mg/dL 07/09/2023 8:43 PM EDT [facility] Estimated Glomerular Filtration Rate >90 >=60 mL/min 07/09/2023 8:43 PM EDT [facility] Comment:eGFR is calculated b ased on the CKD-EPI 2020 equation Sodium 138 135 - 146 mmol/L 07/09/2023 8:43 PM EDT [facility] Potassium 5.0 3.5 - 5.1 mmol/L 07/09/2023 8:43 PM EDT [facility] Chloride 100 98 - 107 mmol/L 07/09/2023 8:43 PM EDT [facility] CO2 28 22 - 32 mmol/L 07/09/2023 8:43 PM EDT [facility] Anion Gap 10 7 - 15 mmol/L 07/09/2023 8:43 PM EDT [facility] Glucose 187(H) 70 - 120 mg/dL 07/09/2023 8:43 PM EDT [facility] Albumin 4.1 3.8 - 5.0 g/dL 07/09/2023 8:43 PM EDT [facility] AST 71(H) 10 - 50 U/L 07/09/2023 8:43 PM EDT [facility] Alkaline Phosphatase 78 35 - 130 U/L 07/09/2023 8:43 PM EDT [facility] Bilirubin, Total 0.3 <=1.2 mg/dL 07/09/2023 8:43 PM EDT [facility] Calcium 9.7 8.4 - 10.2 mg/dL 07/09/2023 8:43 PM EDT [facility] Protein 6.8 6.0 - 8.3 g/dL 07/09/2023 8:43 PM EDT [facility] ALT 110(H) 10 - 50 U/L 07/09/2023 8:43 PM EDT [facility] Blood Venous blood specimen / Unknown Venipuncture / Unknown 07/09/2023 9:58 AM EDT 07/09/2023 10:01 AM EDT Velasquez Valencia MD LAB BLOOD ORDERABL ES [facility] [place] [address] [place] [address] documented in this encounter Visit Diagnoses Diagnosis Diabetes mellitus with nephropathy (HCC)- Primary Type II or unspecified type diabetes mellitus with renal manifestations, not stated as uncontrolled Need for pneumococcal vaccination Need for prophylactic vaccination against streptococcus pneumoniae (pneumococcus) Need for prophylactic vaccination and inoculation against influenza Encounter for long-term (current) use of medications Encounter for long-term (current) use of other medications COPD, moderate (HCC) Chronic airway obstruction, not elsewhere classified Obstructive sleep apnea Obstructive sleep apnea (adult) (pediatric) Gastroesophageal reflux disease without esophagitis Esophageal reflux Gastroparesis documented in this encounter Advance Directives Latest [...] the patient have Health Care Power of High Pressure Operator? No Care Teams Scrap Drop Operator Relationship Specialty Start Date End Date Velasquez Valencia MD [address], [place] [id number] PCP - General Family Medicine 09/09/22 documented as of this encounter
--- OUTSIDE RECORDS SUMMARY | 2023-09-19 09:27 | External Medical Summary | Summary of Care ---
Author Name Unknown Organization [facility] Address [address] [place] [address] Phone [phone] Care Team Providers Care Trade Mark Examiner Name Role Phone Velasquez Valencia MD Primary Care Provider +1- [phone] Reason for Visit * Reason Onset Date Comments Medication Question 08/20/2023 Encounter Details Date Type Department Care Team (Late st Contact Info) Description 08/20/2023 Telephone [facility] [address] [place] [address] Velasquez Valencia MD [address] [place] [address] Medication Question Allergies Active Allergy Reactions Criticality Noted Date Comments Cefaclor Unknown 07/26/2018 As child Empagliflozin Other (Please comment) 05/16/2021 DKA with hospitalization documented as of this encounter (statuses as of 08/20/2023) Medications Medication Sig Dispensed Refills Start Date [...] as of this encounter (statuses as of 08/20/2023) Active Problems Problem Noted Date Diagnosed Date [...] as of this encounter (statuses as of 08/20/2023) Resolved Problems Problem Noted Date Diagnosed Date Resolved Date Fracture of nasal bones, ini tial encounter for closed fracture 10/23/2021 10/20/2022 Neuropathy 10/23/2021 10/20/2022 Diabetic ketoacidosis withou t coma associated with type 2 diabetes mellitus 03/02/2021 07/04/2021 Intellectual disability 10/25/2019 01/0 03/2022 HTN, goal below 130/80 12/18/201710/20 Leg [...] as of this encounter (statuses as of 08/20/2023) Immunizations Name Administration Dates Next Due COVID-19 mRNA, LNP-s, No Pre serve, 2-Dose Series ([facility]) 10/21/2021,03/01/2021,02/07/2021 H1N1 2009 Influenza, IM 11/04/2009 Pneumococcal Conjugate Vacci ne, 20-valent ([id number]) 07/09/2023 Pneumococcal Polysaccharide PPV23 (Pneumovax) 11/03/2015,02/09/2006 SEASONAL [...] encounter Miscellaneous Notes * Telephone Encounter - Devora Michaels CPhT - 08/20/2023 10:32 AM EDT Received notification that Pt's Mounjaro 10 MG/0.5ML Subcutaneous Solution Pen- injector (Tirzepatide was not d/c. Called [facility] pharmacy to confirm they received cancellation. Thank you, Devora Michaels [employer] [facility] ([facility]) 08/20/2023, 10:34 AM documented in this encounter Plan of Treatment Upcoming Encounters Date Type Department Care Team (Late st Contact Info) Description 09/02/2023 6:10 PM EST [facility] Pharm[facility] [place] [address] [facility] [address] [facility] [address] [place] [address] 09/10/2023 11:40 AM EST Telemedicine Pharmacy, [place] [address] [facility] [address] [facility] [address] [facility] [address] 09/30/2023 9:00 AM EST Procedure Only Endoscopy, Jaziel Landon [address] [place] [address] Janak Aldrich MD [address] [place] [place] [address] 12/14/2023 10:40 AM EST Office Visit [facility] [address] [place] [facility] [place] [id number] Velasquez Valencia MD [address] [facility] [place] [address] Health Maintenance Due Date Last Done Comments Hepatitis B (1 of 3 - 3-dose series) 1973 HIV Screening 1988 Alpha-1 Antitrypsin 1991 Hepatitis C Screening 1991 Diabetic Eye Exam 03/07/2022 03/07/2021, , 08/28/2010, Additional history exists COVID-19 Vaccine ( season) 2023 10/21/2021, 03/01/2021, 02/07/2021 DISCUSS TOBACCO CESSATION (REFER TO SMARTSET #3554) 10/16/2023 10/16/2022 Albumin/Creatinine Ratio 01/06/2024 023, 09/01/2021, 05/07/2015, Additional history exists HbA1c 02/02/2024 08/03/2023, 06/19, 01/05/2023, Additional history exists Depression Screening 02/25/2024 02/24/2023 Diabetic Foot Exam 07/09/2024 07/09/2023, 0 03/07/2021, 11/27/2019, Additional history exists O2 ASSESSMENT COMPLETED IN PAST YEAR FOR COPD 07/09/2024 07/09/2023 GFR 08/03/2024 08/03/2023, 06/19, 02/07/2023, Additional history exists Lipid Panel 01/06/2028 01/05/2023, [...] this encounter Medical Devices Implanted Type Area Shipping Agent Device Identifier Shelf Expiration Date Model / Serial / Lot Suture Dowagiac Dbl Load 5.5mm - [id number] Implanted:Qty: 1 on 12/01/2019 by Judith Condon, at OR [facility] Right: Shoulder [employer] 09/16/2021 [id number] -[id number] / / [id number] documented as of this encounter Advance Directives [...] the patient have Health Care Power of Traffic Superintendent? No Care Teams Trade Mark Examiner Relationship Specialty Start Date End Date Velasquez Valencia MD [address] [place] [address] PCP - General Family Medicine 09/09/22 documented as of this encounter
--- OUTSIDE RECORDS SUMMARY | 2023-09-19 09:27 | External Medical Summary ---
Author Name Unknown Address Unknown Organization K01:[facility] - [address] [facility] [place] [address] Laboratory Report Ordering Provider Test Date Status NANCY DUFFYCECILIA 07/09/2023 09:58:52 Final Observation Date Value Abnormality Reference (Units ) Status BUN 07/09/2023 09:58:52 19 6-20 (mg/dL) Final Creatinine 07/09/2023 09:58:52 0.8 0.6-1.2 (mg/dL) Final Glomerular filtration rate/1.73 sq M.predicted [Volume Rate/Area] in Serum, Plasma or Blood by Creatinine-based formula (CKD-EPI) 07/09/2023 09:58:52 >90 >=60 (mL/min) Final eGFR is calculated based on the CKD-EPI 2020 equation SODIUM 07/09/2023 09:58:52 138 135-146 (m mol/L) Final Potassium 07/09/2023 09:58:52 5.0 3.5-5.1 (m mol/L) Final Cl 07/09/2023 09:58:52 100 98-107 (mm ol/L) Final CO2 07/09/2023 09:58:52 28 22-32 (mmo l/L) Final Anion gap 07/09/2023 09:58:52 10 7-15 (mmol /L) Final Glucose 07/09/2023 09:58:52 187 Above high normal 70 -120 (mg/dL) Final Albumin 07/09/2023 09:58:52 4.1 3.8-5.0 (g /dL) Final AST (Aspartate aminotransferase) 07/09/2023 09:58:52 71 Above high normal 10-50 (U/L) Final Alk Phos 07/09/2023 09:58:52 78 35-130 (U/ L) Final Bilirubin, Total 07/09/2023 09:58:52 0.3 <=1 .2 (mg/dL) Final Calcium 07/09/2023 09:58:52 9.7 8.4-10.2 ( mg/dL) Final Protein 07/09/2023 09:58:52 6.8 6.0-8.3 (g /dL) Final ALT (Alanine aminotransferase) 07/09/2023 09:58:52 110 Above high normal 10-50 (U/L) Final Performing Location LAB[facility] [place] [address] [facility] [address]
--- OUTSIDE RECORDS SUMMARY | 2023-09-19 09:27 | External Medical Summary | Summary of Care ---
Author Name Unknown Organization [facility] Address [address] [place] [address] Phone [phone] Care Team Providers Care Tobacco Drier Operator Name Role Phone Velasquez Valencia MD Primary Care Provider +1- [phone] Reason for Visit * Reason Comments Cold Symptoms * Auth/Cert Specialty Diagnoses / Procedures Referred By Bismark brown Referred To Contact Referral ID Status Reason Start Date Expiration Date Visits Re quested Visits Authorized [id number] Encounter Details Date Type Department Care Team (Late st Contact Info) Description 08/28/2023 11:32 AM EST - 08/28/2023 12:50 PM EST Emergency [facility] ([facility]) [address] [place] [address] Prasanth Fiore MD [address] [place] [address] Rhinovirus (Primary Dx) Discharge Disposition: Home - Self Care Allergies Active Allergy Reactions Criticality Noted Date Comments Cefaclor Unknown 07/26/2018 As child Empagliflozin Other (Please comment) 05/16/2021 DKA with hospitalization documented as of this encounter (statuses as of 08/29/2023) Medications Medication Sig Dispensed Refills Start Date [...] as of this encounter (statuses as of 08/29/2023) Active Problems Problem Noted Date Diagnosed Date [...] as of this encounter (statuses as of 08/29/2023) Resolved Problems Problem Noted Date Diagnosed Date [...] as of this encounter (statuses as of 08/29/2023) Immunizations Name Administration Dates Next Due COVID-19 mRNA, LNP-s, No Pre serve, 2-Dose Series ([employer]) 10/21/2021,03/01/2021,02/07/2021 H1N1 2009 Influenza, IM 11/04/2009 Pneumococcal Conjugate Vacci ne, 20-valent ([id number]) 07/09/2023 Pneumococcal Polysaccharide PPV23 (Pneumovax) 11/03/2015,02/09/2006 SEASONAL [...] Sign Reading Time Taken Comments Blood Pressure 148/70 08/28/2023 12:05 PM EST Pulse 100 08/28/2023 12:05 PM EST Temperature 36.7 C (98.1 F) 08/28/2023 11:[address] Respiratory Rate 24 08/28/2023 12:05 PM EST Oxygen Saturation 95% 08/28/2023 12:05 PM EST Inhaled Oxygen Concentration - - Weight 145.2 kg (320 lb) 08/28/2023 11:25 AM EST Height 190.5 cm (6' 3") 08/28/2023 11:25 AM EST Body Mass Index 40 08/28/2023 11:25 AM EST documented in this [...] No 11/30/2021 documented as of this encounter Discharge Instructions * Discharge Instructions* Emily Uriostegui PA-C - 08/28/2023 12:35 PM EST Rest and remain well hydrated. Continue all at-home medications, no changes have been made. Please elevate the head of your bed in run a cool-mist humidifier in her room to ease nasal congestion. Only use lnae-qhc-obwpjdj cough and cold medication that a safe for use when you have high blood pressure. Review the discharge instructions provided at today's visit. Follow up with your PCP in 1 week's time. As discussed at bedside, return to the emergency department in the event that your symptoms persistor worsen. documented in this encounter ED Notes * Diane Schultz RN - 08/28/2023 11:28 AM EST Pt comes in complaining of cold like symptom that started yesterday. Pt complaining of cough, congestion, feeling feverish and chest pain. Took sudafed without relief. documented in this encounter Miscellaneous Notes * ED Welt Maker Note - Diane Schultz RN - 08/28/2023 12:50 PM EST Pt denies any pain at the time of discharge. Discharge instructions reviewed with pt. Advised to follow up with PCP. All questions answered and addressed. Verbalized understanding. Ambulated out of department with steady gait. * Pt Handout (on AVS) - Emily Uriostegui PA-C - 08/28/2023 12:34 PM EST [id number] Viral Upper Respiratory Illness (Adult) You have a viral upper respiratory illness (URI), which is another term for the common cold. This viral illness is contagious during the first few days. It's spread through the air by coughing and sneezing. It may also be spread by direct contact (touching the sick person and then touching your owneyes, nose, or mouth). Frequent handwashing will lower risk of spread. Most viral illnesses go awaywithin 7 to 10 days with rest and simple home remedies. Sometimes the illness may last for several weeks. Antibiotics will not kill a virus, and they are generally not prescribed for this condition. Home care If symptoms are severe, rest at home for the first 2 to 3 days or as advised. When you resume activity, don't let yourself get too tired. Don't smoke. If you need help stopping, talk with your healthcare provider. Stay away from cigarette smoke (yours or others?). You may use acetaminophen or ibuprofen to control pain and fever, unless another medicine was prescribed. Talk with your provider before taking these medicines if you have chronic liver or kidney disease. Also talk with your provider if you've had a stomach ulcer or digestive bleeding, or you take blood- thinning medicines. Never give aspirin to anyone under 18 years of age who is ill with a viral infection or fever. It may cause severe liver or brain damage, or even . Your appetite may be poor, so a light diet is OK. Stay well hydrated by drinking 6 to 8 glasses of fluids per day (water, soft drinks, juices, tea, or soup). Extra fluids will help loosen secretions in the nose and lungs. Avsd-lpn-bewheev cold medicines will not shorten the length of time you?re sick. But they may behelpful for cough, sore throat, and nasal and sinus congestion. If you take prescription medicines,ask your healthcare provider or pharmacist which qzvf-vow-bwnjoqa medicines are safe to use. Don't use decongestants, if you have high blood pressure, without first talking with your healthcare provider. If you are taking other prescribed medicine, contact your healthcare provider before taking any qust-jch-swcxaxz medicines. Follow-up care Follow up with your healthcare provider, or as advised. When to seek medical advice Call your healthcare provider right away if any of these occur: Cough with lots of colored sputum (mucus) Severe headache; face, neck, or ear pain Difficulty swallowing due to throat pain Fever of 100.4F (38C) or higher , or as directed by your healthcare provider Call 911 Call 911 if any of these occur: Chest pain, shortness of breath, wheezing, or difficulty breathing Coughing up blood Very severe pain with swallowing, especially if it goes along with a muffled voice Feeling of doom Feeling dizzy, faint, or confused Lips or skin is blue, purple or luque in color Last Reviewed Date: 10/18/202119993158-9286 The [employer]. All rights reserved. This information is not intended as a substitute for professional medical care. Always follow your healthcare professional's instructions. * ED Welt Maker Note - Afsaneh Douglas RN - 08/28/2023 12:18 PM EST Productive cough for two days. Some nasal congestion and throat pain. documented in this encounter Plan of Treatment Upcoming Encounters Date Type Department Care Team (Late st Contact Info) Description 09/02/2023 6:10 PM EST Pharmacy Pharmacy, [place] [address] [place] [address] [place] [address] [place] [address] 09/10/2023 11:40 AM EST Telemedicine Pharmacy, [place] [address] [place] [facility] [place] [address] [facility] [address] [place] [address] 09/30/2023 9:00 AM EST Procedure Only Endoscopy, [facility] [address] [place] [address] Janak Aldrich MD [address] [facility] [place] [address] 12/14/2023 10:40 AM EST Office Visit [place] [address] [facility] [place] [address] Velasquez Valencia MD [address] [facility] [place] [address] Health Maintenance Due Date Last Done Comments Hepatitis B (1 of 3 - 3-dose series) 1973 HIV Screening 1988 Alpha-1 Antitrypsin 1991 Hepatitis C Screening 1991 Diabetic Eye Exam 03/07/2022 03/07/2021, , 08/28/2010, Additional history exists COVID-19 Vaccine ( season) 2023 10/21/2021, 03/01/2021, 02/07/2021 DISCUSS TOBACCO CESSATION (REFER TO SMARTSET #3642) 10/16/2023 10/16/2022 Albumin/Creatinine Ratio 01/06/2024 023, 09/01/2021, 05/07/2015, Additional history exists HbA1c 02/02/2024 08/03/2023, 06/19, 01/05/2023, Additional history exists Depression Screening 02/25/2024 02/24/2023 Diabetic Foot Exam 07/09/2024 07/09/2023, 0 03/07/2021, 11/27/2019, Additional history exists O2 ASSESSMENT COMPLETED IN PAST YEAR FOR COPD 07/09/2024 08/28/2023 GFR 08/03/2024 08/03/2023, 06/19, 02/07/2023, Additional history [...] this encounter Medical Devices Implanted Type Area Flue Gas Analyst Device Identifier Shelf Expiration Date Model / Serial / Lot Suture Bogart Dbl Load 5.5mm - [id number] Implanted:Qty: 1 on 12/01/2019 by Judith Condon, DO [facility] Right: Shoulder [employer] 09/16/2021 [id number] -[id number] / / [id number] documented as of this encounter Procedures Procedure Name Priority Date/Time Associated Diagnosis Comments RESPIRATORY PATHOGEN PANEL, PCR STAT 08/28/2023 11:32 AM EST documented in this encounter Results * (ABNORMAL) RESPIRATORY PATHOGEN PANEL, PCR (08/28/2023 11:32 AM EST) Adenovirus by PCR Negative Negative 023 12:31 PM EST LAB[facility]ATORY [facility] Coronavirus 229E by PCR Negative Negative 08/28/2023 12:31 PM EST LAB[facility]ATORY [facility] Coronavirus HKU1 by PCR Negative Negative 08/28/2023 12:31 PM EST [facility] Coronavirus NL63 by PCR Negative Negative 08/28/2023 12:31 PM EST [facility] Coronavirus OC43 by PCR Negative Negative 08/28/2023 12:31 PM EST [facility] Coronavirus SARS-CoV-2 by PCR Negative Negative 08/28/2023 12:31 PM EST [facility] Human Metapneumovirus by PCR Negative Negative 08/28/2023 12:31 PM EST [facility] Rhinovirus/Enterov irus by PCR Positive(A) Negative 08/28/2023 12:31 PM EST [facility] Comment: Rhinovirus/Enterovirus detected by PCR (amplified probe). Influenza A Virus by PCR Negative Negative 08/28/2023 12:31 PM EST [facility]ORY [facility] Influenza B Virus by PCR Negative Negative 08/28/2023 12:31 PM EST [facility] Parainfluenza Virus 1 by PCR Negative Negative 08/28/2023 12:31 PM EST [facility] Parainfluenza Virus 2 by PCR Negative Negative 08/28/2023 12:31 PM EST [facility] Parainfluenza Virus 3 by PCR Negative Negative 08/28/2023 12:31 PM EST [facility] Parainfluenza Virus 4 by PCR Negative Negative 08/28/2023 12:31 PM EST [facility] Respiratory Syncytial Virus by PCR Negative Negative 08/28/2023 12:31 PM EST [facility] Bordetella pertussis by PCR Negative Negative 08/28/2023 12:31 PM EST [facility] Chlamydia pneumoniae by PCR Negative Negative 08/28/2023 12:31 PM EST [facility] Mycoplasma pneumoniae by PCR Negative Negative 08/28/2023 12:31 PM EST [facility] Bordetella parapertussis by PCR Negative Negative 08/28/2023 12:31 PM EST [facility] Comment: The primers that detect Rhinovirus may cross react with some Enterorviruses. The validation of bronchial specimens, tracheal aspirates, and throats for this assay was developed and performance characteristics determined by [employer]. The validation of alternate specimen types has not been cleared or approved by the U.S. Food and Drug Administration (FDA). It has been determined that such clearance or approval is not necessary. Upper Respiratory Mid-turbinate nasal swab / Unknown Non-blood Collection / Unknown 08/28/2023 11:32 AM EST 08/28/2023 11:36 AM EST Prasanth Fiore MD LAB MICRO - GENE RAL ORDERABLES Performing Organization Address City/State/[facility] Co [place] [address] documented in this encounter Visit Diagnoses Diagnosis Rhinovirus- Primary Rhinovirus infection in conditions classified elsewhere and of unspecified site documented in this encounter Additional Health Concerns Infection Onset Date Last Indicated Resolved Time Respiratory Rule-Out 08/28/2023 08/28/2023 023 12:31 PM EST COVID-19 Rule-Out 08/28/2023 08/28/2023 08/28/2023 12:31 PM EST Enterovirus (resp)/Rhinovirus 08/28/2023 08/28/2023 documented as of [...] the patient have Health Care Power of Brass Chaser? No Care Teams Tobacco Drier Operator Relationship Specialty Start Date End Date Velasquez Valencia MD [address] [place] [address] PCP - General Family Medicine 09/09/22 documented as of this encounter
--- OUTSIDE RECORDS SUMMARY | 2023-09-19 09:27 | External Medical Summary ---
Author Name Unknown Address Unknown Organization K01:[facility] [place] [address] [place] [address] Laboratory Report Ordering Provider Test Date Status CHARLES DUFFYREINA 08/03/2023 08:46:35 Final Observation Date Value Abnormality Reference (Units ) Status BUN 08/03/2023 08:46:35 12 6-20 (mg/dL) Final Creatinine 08/03/2023 08:46:35 0.8 0.6-1.2 (mg/dL) Final Glomerular filtration rate/1.73 sq M.predicted [Volume Rate/Area] in Serum, Plasma or Blood by Creatinine-based formula (CKD-EPI) 08/03/2023 08:46:35 >90 >=60 (mL/min) Final eGFR is calculated based on the CKD-EPI 2020 equation SODIUM 08/03/2023 08:46:35 137 135-146 (m mol/L) Final Potassium 08/03/2023 08:46:35 4.9 3.5-5.1 (m mol/L) Final Cl 08/03/2023 08:46:35 99 98-107 (mm ol/L) Final CO2 08/03/2023 08:46:35 26 22-32 (mmo l/L) Final Anion gap 08/03/2023 08:46:35 12 7-15 (mmol /L) Final Glucose 08/03/2023 08:46:35 239 Above high normal 70 -120 (mg/dL) Final Calcium 08/03/2023 08:46:35 9.2 8.4-10.2 ( mg/dL) Final Performing Location [facility] [place] [address] [place] [address]
--- OUTSIDE RECORDS SUMMARY | 2023-09-19 09:27 | External Medical Summary ---
Author Name Unknown Address Unknown Organization K01:[facility] - [address] [place] [address] Laboratory Report Ordering Provider Test Date Status CHRIST DUFFY 08/03/2023 08:46:35 Final Observation Date Value Abnormality Reference (Units ) Status Magnesium 08/03/2023 08:46:35 1.5 1.5-2.6 (m g/dL) Final Performing Location [facility] - [address] [place] [address]
--- OUTSIDE RECORDS SUMMARY | 2023-09-19 09:27 | External Medical Summary | Summary of Care ---
Author Name Unknown Organization [facility] Address [address] [place] [address] Phone [phone] Care Team Providers Care Master Machinist Name Role Phone Velasquez Valencia MD Primary Care Provider +1- [phone] Reason for Visit * Reason Onset Date Comments Follow Up 08/01/2023 Encounter Details Date Type Department Care Team Description 08/01/2023 Telephone [facility] [address] [place] [address] Velasquez Valencia MD [address] [place] [address] Follow Up Allergies Active Allergy Reactions Severity Noted Date Comments Cefaclor Unknown 07/26/2018 As child Empagliflozin Other (Please comment) 05/16/2021 DKA with hospitalization documented as of this encounter (statuses as of 08/03/2023) Medications Medication Sig Dispensed Refills Start Date [...] L/min(Oxygen) as directed at bedtime. 0 Active Budesonide-Formot meeta Fumarate 80-4.5 MCG/ACT Inhalation [...] times daily 400 Each 3 3 Active Mounjaro 10 MG/0.5ML Subcutaneous Solution Pen-injector (Tirzepatide)Yanet cations:Type 2 diabetes mellitus with hemoglobin A1c goal of less than 7.0% ([facility]) Inject 10 mg under the skin once a week. Dose increase 2 mL 0 3 07/07/20 24 Active Cyclobenzaprine HCl 10 MG Oral Tablet [...] MEALS ) 270 Tablet 1 3 Active Metoprolol Succinate ER 50 MG Oral Tablet Extended Release 24 Hour (toPROL XL)Indications:Si nus tachycardia Take 1 and a half tablet by mouth daily 135 Tablet 3 3 08/03/20 23 Discontinu ed(Refill) Gabapentin 100 MG Oral Capsule (Neurontin)Indica tions:Neuropathy take 1 capsule by mouth every morning and 2 capsules by mouth at bedtime 270 Capsule 1 3 08/03/20 23 Discontinu ed(Refill) Metoclopramide HCl 10 MG Oral Tablet (Reglan) take 1 tablet by mouth three times a day ( 30 MINUTES before MEALS ) 270 Tablet 1 3 08/03/20 23 Discontinu ed(Refill) Hospital, Clinic, or Other Facility Administered Medication Ordered Dose Route Frequency Start Date End Date Status Albuterol Sulfate (Proventil) (5 MG/ML) 0.5% *conc* inhalation solution 2.5 mgIndications:Chronic respiratory failure with hypercapnia (HCC) 2.5 mg NEBULIZER PRN 12/01/2022 12/01/2023 Ac tive documented as of this encounter (statuses as of 08/03/2023) Active Problems Problem Noted Date COPD, moderate [...] as of this encounter (statuses as of 08/03/2023) Resolved Problems Problem Noted Date Resolved Date [...] as of this encounter (statuses as of 08/03/2023) Immunizations Name Administration Dates Next Due COVID-19 mRNA, LNP-s, No Pre serve, 2-Dose Series (Pfizer) 10/21/2021,03/01/2021,02/07/2021 H1N1 2009 Influenza, IM 11/04/2009 Pneumococcal Conjugate Vacci ne, 20-valent ([id number]) 07/09/2023 Pneumococcal Polysaccharide PPV23 (Pneumovax) 11/03/2015,02/09/2006 SEASONAL [...] encounter Miscellaneous Notes * Telephone Encounter - Velasquez Valencia MD - 08/03/2023 5:13 PM EDT Sent erx * Telephone Encounter - Tanesha Goldsmith LPN - 08/03/2023 10:20 AM EDT Called and spoke with pt. Has had his diabetic supplies sent through the mail order already. Had wanted his Losartan to go there as well, but it was filled at [facility] Needs Gabapentin, metoprolol, & metoclopramide soon - pended Will call for refills of other meds when needed States that he has not been having any upper GI symptoms. States that since he started the higher dose of Mounjaro, he has noticed some nausea after he eats * Telephone Encounter - Velasquez Valencia MD - 08/01/2023 1:24 PM EDT Please check with pt. At last OV, I think that he was going to look into using [facility]. Has that worked? If he plans to use it, please see if he needs any meds sent there at this time. If so, please pend for 90 days supply Also, he has a colonoscopy scheduled in September at [facility]. Is he still having upper GI symptoms despite pantoprazole? If so, we can try (but can't promise) to see if an EGD could be done same time. documented in this encounter Plan of Treatment Upcoming Encounters Date Type Specialty Care Team Description 08/13/2023 Telemedicine Pharmacy [facility] [address], [place] [id number] 09/30/2023 Procedure Only Endoscopy Janak Aldrich MD [address] [place] [address] 12/14/2023 Office Visit Family Medicine Velasquez Valencia MD [address] [place] [address] Health Maintenance Due Date Last Done Comments Hepatitis B (1 of 3 - 3-dose series) 1973 HIV Screening 1988 Alpha-1 Antitrypsin 1991 Hepatitis C Screening 1991 DIABETES-EYE EXAM 03/07/2022 03/07/2021, , 08/21/2008 (Unable to do), Additional history exists COVID-19 Vaccine ( season) 2023 10/21/2021, 03/01/2021, 02/07/2021 DISCUSS TOBACCO CESSATION (REFER TO SMARTSET #8261) 10/16/2023 10/16/2022 Albumin/Creatinine Ratio 01/06/2024 023, 09/01/2021, 05/07/2015, Additional history exists HbA1c 01/07/2024 08/03/2023, 06/19, 01/05/2023, Additional history exists Depression Screening 02/25/2024 02/24/2023 Diabetic Foot Exam 07/09/2024 07/09/2023, 0 03/07/2021, 11/27/2019, Additional history exists GFR 07/09/2024 08/03/2023, 06/19, 02/07/2023, Additional history exists O2 [...] this encounter Medical Devices Implanted Type Area Director Ge[employer] Device Identifier Shelf Expiration Date Model / Serial / Lot Suture [place] Dbl Load 5.5mm - [id number] Implanted:Qty: 1 on 12/01/2019 by Judith Condon, at OR [facility] Right: Shoulder [employer] 09/16/2021 [id number] -[id number] / / [id number] documented as of this encounter Visit Diagnoses Diagnosis Neuropathy Mononeuritis of unspecified site Sinus tachycardia Other specified cardiac dysrhythmias documented in this encounter Advance Directives Latest [...] Code 03/02/2021 10:51 PM 03/04/2021 9:45 PM Thi s order reflects the patients wishes and were consensually agreed upon. Question Answer Comments Discussion of Advance Directives occurred with: Patient Does the patient have a Living Will? No Does the patient have Health Care Power of Tax Senior Associate? No Care Teams Master Machinist Relationship Specialty Start Date End Date Velasquez Valencia MD [address] [place], [place] [id number] PCP - General Family Medicine 09/09/22 documented as of this encounter
--- OUTSIDE RECORDS SUMMARY | 2023-09-19 09:27 | External Medical Summary ---
Author Name Unknown Address Unknown Organization K1F:[facility] - [address] [facility] [place] [address] Laboratory Report Ordering Provider Test Date Status JACKY BHANDARIANNELISE 08/28/2023 11:32:48 Final ADMITTED patient Observation Date Value Abnormality Reference (Units ) Status Adenovirus DNA [Presence] in Nasopharynx by COLE with non-probe detection 08/28/2023 11:32:48 Negative Negative Final Human coronavirus 229E RNA [Presence] in Nasopharynx by COLE with non-probe detection 08/28/2023 11:32:48 Negative Negative Final Human coronavirus HKU1 RNA [Presence] in Nasopharynx by COLE with non-probe detection 08/28/2023 11:32:48 Negative Negative Final Human coronavirus NL63 RNA [Presence] in Nasopharynx by COLE with non-probe detection 08/28/2023 11:32:48 Negative Negative Final Human coronavirus OC43 RNA [Presence] in Nasopharynx by COLE with non-probe detection 08/28/2023 11:32:48 Negative Negative Final SARS-CoV-2 (COVID-19) RNA [Presence] in Nasopharynx by COLE with non-probe detection 08/28/2023 11:32:48 Negative Negative Final Human metapneumovirus RNA [Presence] in Nasopharynx by COLE with non-probe detection 08/28/2023 11:32:48 Negative Negative Final Rhinovirus+Enterovirus RNA [Presence] in Nasopharynx by COLE with non-probe detection 08/28/2023 11:32:48 Positive Abnormal Negative Final Rhinovirus/Enterovirus detec isabel by PCR (amplified probe).

Influenza virus A RNA [Prese nce] in Nasopharynx by COLE with non-probe detection 08/28/2023 11:32:48 Negative Negative Final Influenza virus B RNA [Prese nce] in Nasopharynx by COLE with non-probe detection 08/28/2023 11:32:48 Negative Negative Final Parainfluenza virus 1 RNA [P resence] in Nasopharynx by COLE with non-probe detection 08/28/2023 11:32:48 Negative Negative Final Parainfluenza virus 2 RNA [P resence] in Nasopharynx by COLE with non-probe detection 08/28/2023 11:32:48 Negative Negative Final Parainfluenza virus 3 RNA [P resence] in Nasopharynx by COLE with non-probe detection 08/28/2023 11:32:48 Negative Negative Final Parainfluenza virus 4 RNA [P resence] in Nasopharynx by COLE with non-probe detection 08/28/2023 11:32:48 Negative Negative Final Respiratory syncytial virus RNA [Presence] in Nasopharynx by COLE with non-probe detection 08/28/2023 11:32:48 Negative Negative F inal Bordetella pertussis.pertuss is toxin promoter region [Presence] in Nasopharynx by COLE with non-probe detection 08/28/2023 11:32:48 Negative Negative Final Chlamydophila pneumoniae DNA [Presence] in Nasopharynx by COLE with non-probe detection 08/28/2023 11:32:48 Negative Negative Final Mycoplasma pneumoniae DNA [P resence] in Nasopharynx by COLE with non-probe detection 08/28/2023 11:32:48 Negative Negative Final Bordetella parapertussis IS1 001 DNA [Presence] in Nasopharynx by COLE with non-probe detection 08/28/2023 11:32:48 Negative Negative F inal
The primers that detect Rhinovirus may cross react with some Enterorviruses. The validation of bronchial specimens, tracheal aspirates, and throats for this assay was developed and performance characteristics determined by [facility]. The validation of alternate specimen types has not been cleared or approved by the U.S. Food and Drug Administration (FDA). It has been determined that such clearance or approval is not necessary. [place] [address] [place] [address]
--- OUTSIDE RECORDS SUMMARY | 2023-09-19 09:27 | External Medical Summary | Summary of Care ---
Author Name Unknown Organization [facility] Address [address] [place] [address] Phone [phone] Care Team Providers Care Head Loader Name Role Phone Tati Polo MD Primary Care Provider +1- [phone] Reason for Visit * Reason Onset Date Comments Medication Refill 07/27/2023 Encounter Details Date Type Department Care Team Description 07/27/2023 Refill [facility] [address] [place] [address] Tati Polo MD [address] [place] [address] HTN, goal below 140/90 Allergies Active Allergy Reactions Severity Noted Date Comments Cefaclor Unknown 07/26/2018 As child Empagliflozin Other (Please comment) 05/16/2021 DKA with hospitalization documented as of this encounter (statuses as of 07/28/2023) Medications Medication Sig Dispensed Refills Start Date End Date Status Diclofenac Sodium (VOLTAREN) 1 % gel Place 2 g topically on the skin 2 times a day. To affected area as directed. 100 g 5 0 Active docusate sodium (RA COL-RITE) 100 MG Capsule Take 1 Cap by mouth 2 times a day as needed for Constipation. 60 Cap 3 0 Active Advil Dual Action 125-250 MG Oral Tablet (Ibuprofen-Acetam inophen) Take 3 Tablets by mouth 2 times a day. 0 Active CPAP every night at bedtime. 0 Active Albuterol Sulfate HFA 108 (90 Base) MCG/ACT Inhalation Aerosol SolutionIndicatio ns:RSV bronchitis inhale 2 puffs by mouth and INTO THE LUNGS every 6 hours if needed for cough shortness of breath or WITHDRAWAL SYMPTOMS 54 g 3 3 Active Metoprolol Succinate ER 50 MG Oral Tablet Extended Release 24 Hour (toPROL XL)Indications:Si nus tachycardia Take 1 and a half tablet by mouth daily 135 Tablet 3 3 Active Pantoprazole Sodium 40 MG Oral Tablet Delayed Release (Protonix) take 1 tablet by mouth twice a day 180 Tablet 1 3 Active oxygen IN GAS Use 2 L/min(Oxygen) as directed at bedtime. 0 Active Budesonide-Formot meeta Fumarate 80-4.5 MCG/ACT Inhalation Aerosol (Symbicort) Inhale 2 Puffs by mouth in the morning and 2 Puffs before bedtime. 10.2 g 12 3 Active polyethylene glycol 3350 119 gram OR POWD Take 119 g by mouth once. 0 Active Famotidine 20 MG Oral Tablet (Pepcid) Take 1 Tablet by mouth every night at bedtime. 90 Tablet 3 3 Active Gabapentin 100 MG Oral Capsule (Neurontin)Indica tions:Neuropathy take 1 capsule by mouth every morning and 2 capsules by mouth at bedtime 270 Capsule 1 3 Active Dicyclomine HCl 10 MG Oral Capsule (Bentyl) take 1 capsule by mouth four times a day 360 Capsule 3 3 Active Metoclopramide HCl 10 MG Oral Tablet (Reglan) take 1 tablet by mouth three times a day ( 30 MINUTES before MEALS ) 270 Tablet 1 3 Active Amoxicillin 500 MG Oral Tablet 1 Tablet in the morning and 1 Tablet at noon and 1 Tablet before bedtime. 0 3 Active Doxycycline Hyclate 100 MG Oral Tablet 1 Tablet in the morning and 1 Tablet before bedtime. 0 3 Active Magnesium Oxide 400 MG Oral Tablet 1 Tablet daily. 0 3 Active metFORMIN HCl 500 MG Oral Tablet (Glucophage)Indic ations:Type 2 diabetes mellitus with hemoglobin A1c goal of less than 7.0% (HCC) TAKE 2 TABLETS BY MOUTH IN THE MORNING AND IN THE EVENING 360 Tablet 3 3 Active Insulin Glargine [...] the morning. 90 Tablet 3 3 Active Losartan Potassium 50 MG Oral Tablet (Cozaar)Indicatio ns:HTN, goal below 140/90 take 1 tablet by mouth once daily 90 Tablet 3 2 07/27/20 23 Discontinu ed(Refill) Hospital, Clinic, or Other Facility Administered Medication Ordered Dose Route Frequency Start Date End Date Status Albuterol Sulfate (Proventil) (5 MG/ML) 0.5% *conc* inhalation solution 2.5 mgIndications:Chronic respiratory failure with hypercapnia (HCC) 2.5 mg NEBULIZER PRN 12/01/2022 12/01/2023 Ac tive documented as of this encounter (statuses as of 07/28/2023) Active Problems Problem Noted Date COPD, moderate [...] as of this encounter (statuses as of 07/28/2023) Resolved Problems Problem Noted Date Resolved Date [...] as of this encounter (statuses as of 07/28/2023) Immunizations Name Administration Dates Next Due COVID-19 mRNA, LNP-s, No Pre serve, 2-Dose Series (Pfizer) 10/21/2021,03/01/2021,02/07/2021 H1N1 2009 Influenza, IM 11/04/2009 Pneumococcal Conjugate Vacci ne, 20-valent ([id number]) 07/09/2023 Pneumococcal Polysaccharide PPV23 (Pneumovax) 11/03/2015,02/09/2006 SEASONAL [...] encounter Miscellaneous Notes * Telephone Encounter - Gil La [facility] - 07/28/2023 10:49 AM EDTSigned Prescriptions: Disp Refills Losartan Potassium 50 MG Oral Tablet (Coza*90 Tab*3 Sig: Take 1 Tablet by mouth in the morning. Authorizing Provider: TATI POLO Ordering User: GIL LA * Telephone Encounter - Raya Ernst CPhT - 07/27/2023 11:18 AM EDT Did you pend patient's preferred pharmacy and medication before forwarding?yes Pharmacy: [id number] Pending Prescriptions: Disp Refills Losartan Potassium 50 MG Oral Tablet (Coz*90 Tab*3 Sig: Take 1 Tablet by mouth in the morning. Last Visit: 07/09/2023 (in office), Visit date not found (telemedicine) Next Visit: 12/14/2023 If no future appointments scheduled, and last appointment is greater than a year ago, please schedule patient for a follow-up appointment Last date the medication was ordered: 07/21/2022 Is this request for a controlled substance?No Urine Drug Screen:No results found. However, due to the size of the patient record, not all encounters were searched. Please check Results Review for a complete set of results. Patient Phone Numbers Labs: Lab Results Component Value Date/Time CREAT 0.8 07/09/2023 09:58 AM CREAT 0.96 02/07/2023 12:00 AM CREAT 0.8 11/25/2019 08:53 AM POTASSIUM 5.0 07/09/2023 09:58 AM POTASSIUM 4.2 02/07/2023 12:00 AM POTASSIUM 4.5 11/25/2019 08:53 AM TSH 1.24 12/05/2021 12:12 PM TSH 0.698 06/30/2018 12:00 AM LDLCALC 126 01/05/2023 11:33 AM LDLCALC 108 01/08/2011 02:50 PM LDLDIRECT 133 (H) 04/12/2007 03:04 PM ALT 110 (H) 07/09/2023 09:58 AM ALT 37 11/25/2019 08:53 AM HGBA1C 9.1 (H) 07/09/2023 09:58 AM HGBA1C 9.2 (H) 09/16/2020 01:55 PM documented in this encounter Plan of Treatment Upcoming Encounters Date Type Specialty Care Team Description 08/13/2023 [facility] [address] [facility] [address] 09/30/2023 Procedure Only Endoscopy Janak Aldrich MD [address] [place] [address] 12/14/2023 Office Visit Family Medicine Tati Polo MD [address] [place] [facility] [facility] [place] [address] Health Maintenance Due Date Last Done Comments [...] this encounter Medical Devices Implanted Type Area School Commissioner Device Identifier Shelf Expiration Date Model / Serial / Lot Suture [place] Dbl Load 5.5mm - [id number] Implanted:Qty: 1 on 12/01/2019 by Judith Condon, at OR [facility] Right: Shoulder [employer] 09/16/2021 [id number] -[id number] / / [id number] documented as of this encounter Visit Diagnoses Diagnosis HTN, goal below 140/90 Unspecified essential hypertension documented in this encounter Advance Directives Latest [...] the patient have Health Care Power of Insurance Coordinator? No Care Teams Head Loader Relationship Specialty Start Date End Date Tati Polo MD [address] [place] [address] PCP - General Family Medicine 09/09/22 documented as of this encounter
--- OUTSIDE RECORDS SUMMARY | 2023-09-19 09:27 | External Medical Summary | Summary of Care ---
Author Name Unknown Organization [facility] Address [address] [place] [address] Phone [phone] Care Team Providers Care Environmental Management Specialist Name Role Phone Velasquez Valencia MD Primary Care Provider +1- [phone] Reason for Visit * Reason Comments Outpatient Testing Encounter Details Date Type Department Care Team Description 08/03/2023 Laboratory Laboratory, [place] [address] [place] [address] [facility] [address] [place] [address] Diabetes mellitus with nephropathy (HCC); Encounter for long-term (current) use of medications Allergies Active Allergy Reactions Severity Noted Date [...] MEALS ) 270 Tablet 1 05/10/2023 Active metFORMIN HCl 500 MG Oral [...] week. Dose increase 2 mL 0 07/08/2023 Active Cyclobenzaprine HCl 10 MG Oral Tablet (Flexeril)Indicati ons:Lumbar disc herniation TAKE 1 TABLET BY MOUTH AT BEDTIME only if NEEDED 30 Tablet 1 07/09/2023 Active Losartan Potassium 50 MG Oral Tablet (Cozaar)Indication s:HTN, goal below 140/90 Take 1 Tablet by mouth in the morning. 90 Tablet 3 07/28/2023 Active Hospital, Clinic, or Other Facility Administered [...] mRNA, LNP-s, No Pre serve, 2-Dose Series ([employer]) 10/21/2021,03/01/2021,02/07/2021 H1N1 2009 Influenza, IM 11/04/2009 Pneumococcal Conjugate Vacci ne, 20-valent ([id number]) 07/09/2023 Pneumococcal Polysaccharide PPV23 (Pneumovax) 11/03/2015,02/09/2006 SEASONAL [...] Specialty Care Team Description 08/13/2023 Telemedicine Pharmacy [facility] [address] [place] [address] 09/30/2023 Procedure Only Endoscopy Janak Aldrich MD [address] [place] [address] 12/14/2023 Office Visit Family Medicine Velasquez Valencia MD [address] [place] [address] Pending Results Name Type Priority Associated Diagnoses Date /Time HEMOGLOBIN A1C Lab Routine Diabetes mellitus with nephropathy (HCC) 08/03/2023 8:46 AM EDT BASIC METABOLIC PANEL Lab Routine Diabetes mellitus with nephropathy (HCC) Encounter for long-term (current) use of medications 08/03/2023 8:46 AM EDT MAGNESIUM Lab Routine Encounter for long-term (current) use of medications 08/03/2023 8:46 AM EDT Health Maintenance Due Date Last [...] encounter Medical Devices Implanted Type Area Director Private Music Therapy [employer] Device Identifier Shelf Expiration Date Model / Serial / Lot Suture [place] Dbl Load 5.5mm - [id number] Implanted:Qty: 1 on 12/01/2019 by Judith Condon, at OR [facility] Right: Shoulder [employer] 09/16/2021 AR-[id number] -2 / / [id number] documented as of this encounter Visit Diagnoses Diagnosis Diabetes mellitus with nephropathy (HCC) Type II or unspecified type diabetes mellitus with renal manifestations, not stated as uncontrolled Encounter for long-term (current) use of medications Encounter for long-term (current) use of other medications documented in this encounter Advance Directives Latest [...] the patient have Health Care Power of Compliance Quality Performance Analyst? No Care Teams Environmental Management Specialist Relationship Specialty Start Date End Date Velasquez Valencia MD [address] [place] [address] PCP - General Family Medicine 09/09/22 documented as of this encounter
--- OUTSIDE RECORDS SUMMARY | 2023-09-19 09:27 | External Medical Summary | Summary of Care ---
Author Name Unknown Organization [facility] Address [address] [place] [address] Phone [phone] Care Team Providers Care Manager Online Name Role Phone Tati Polo MD Primary Care Provider +1- [phone] Reason for Visit * Reason Comments eRx-Medication Refill Encounter Details Date Type Department Care Team Description 07/08/[address] [address] Tati Polo MD [address] [place] [address] Lumbar disc herniation Allergies Active Allergy Reactions Severity Noted Date [...] mouth once daily 90 Tablet 3 2 Active CPAP every night at bedtime. 0 [...] if NEEDED 30 Tablet 1 3 Active Cyclobenzaprine HCl 10 MG Oral Tablet (Flexeril)Indica tions:Lumbar disc herniation take 1 tablet by mouth at bedtime ONLY if needed 30 Tablet 1 3 07/09/20 23 Discontinued Hospital, Clinic, or Other Facility [...] mellitus 03/02/2021 07/04/2021 Intellectual disability 10/25/2019 10/23/19 HTN, goal below 130/80 12/18/2017 3 Leg [...] 10/21/2021,03/01/2021,02/07/2021 H1N1 2009 Influenza, IM 11/04/2009 Pneumococcal Polysaccharide PPV23 (Pneumovax) 11/03/2015,02/09/2006 Seasonal Influenza, PF, 6 mo ns & Above, IM , (Flulaval) 10/16/2022,07/31/2021,09/16/2020,07/12,07/05/2018 Seasonal Influenza, Quadriva lent, No Preserve, IM [...] encounter Miscellaneous Notes * Telephone Encounter - Tati Polo MD - 07/09/2023 4:41 PM EDTSigned Prescriptions: Disp Refills Cyclobenzaprine HCl 10 MG Oral Tablet (Fle*30 Tab*1 Sig: TAKE 1 TABLET BY MOUTH AT BEDTIME only if NEEDEDAuthorizing Provider: TATI POLO * Telephone Encounter - Lisa Santiago, [facility] - 07/09/2023 7:55 AM EDTPending Prescriptions: Disp Refills Cyclobenzaprine HCl 10 MG Oral Tablet (Fle*30 Tab*1 Sig: TAKE 1TABLET BY MOUTH AT BEDTIME only if NEEDED documented in this encounter Plan of Treatment Upcoming Encounters Date Type Specialty Care Team Description 08/13/2023 Telemedicine [facility] [address] [place] [address] 09/30/2023 Procedure Only Endoscopy Janak Aldrich MD [address] [place] [address] 12/14/2023 Office Visit Family Medicine Tati Polo MD [address] [place] [address] Health Maintenance Due Date Last Done Comments Hepatitis B (1 of 3 - 3-dose series) 1973 HIV Screening 1988 Alpha-1 Antitrypsin 1991 Hepatitis C Screening 1991 COVID-19 Vaccine (4 - Pfizer series) 12/16/2021 10/21/2021, 03/01/2021, 02/07/2021 DIABETES-EYE EXAM 03/07/2022 03/07/2021, , 08/21/2008 (Unable to do), Additional history exists HbA1c 07/08/2023 01/05/2023, 09/17, 12/01/2021, Additional history exists DISCUSS TOBACCO CESSATION (REFER TO SMARTSET #5393) 10/16/2023 10/16/2022 Albumin/Creatinine Ratio 01/06/2024 023, 09/01/2021, 05/07/2015, Additional history exists GFR 02/08/2024 02/07/2023, 12/17, 01/13/2022, Additional history exists Depression Screening 02/25/2024 02/24/2023 O2 ASSESSMENT COMPLETED IN PAST YEAR FOR COPD 05/25/2024 07/09/2023 Diabetic Foot Exam 07/09/2024 07/09/2023, 0 03/07/2021, 11/27/2019, Additional history exists Lipid Panel 01/06/2028 01/05/2023, 11/1 02/2021, 01/08/2011, Additional history exists COLONOSCOPY-EVERY 5 YRS [...] this encounter Medical Devices Implanted Type Area Sack Sorter Device Identifier Shelf Expiration Date Model / Serial / Lot Suture [place] Dbl Load 5.5mm - [id number] Implanted:Qty: 1 on 12/01/2019 by Judith Condon, at OR [facility] Right: Shoulder [employer] 09/16/2021 AR-2323BCT -2 / / [id number] documented as of this encounter Visit Diagnoses Diagnosis Lumbar disc herniation Displacement of lumbar intervertebral disc without myelopathy documented in this encounter Advance Directives Latest [...] the patient have Health Care Power of Caterpillar Mechanic? No Care Teams Manager Online Relationship Specialty Start Date End Date Tati Polo MD [address] [place] [id number] PCP - General Family Medicine 09/09/22 documented as of this encounter
--- OUTSIDE RECORDS SUMMARY | 2023-09-19 09:27 | External Medical Summary | Summary of Care ---
Author Name Unknown Organization [facility] Address [address] [place] [address] Phone [phone] Care Team Providers Care Felt Finisher Name Role Phone Velasquez Valencia MD Primary Care Provider +1- [phone] Reason for Visit * Reason Onset Date Comments Medication Question 08/19/2023 Encounter Details Date Type Department Care Team (Late st Contact Info) Description 08/19/2023 Telephone Pharmacy Call Center [phone] [place] [address] [facility] [address], [place] [id number] Medication Question Allergies Active Allergy Reactions Criticality Noted Date Comments Cefaclor Unknown 07/26/2018 As child Empagliflozin Other (Please comment) 05/16/2021 DKA with hospitalization documented as of this encounter (statuses as of 08/19/2023) Medications Medication Sig Dispensed Refills Start Date [...] ) 270 Tablet 1 3 Active Mounjaro 12.5 MG/0.5ML Subcutaneous Solution Pen-injector (Tirzepatide)Ind ications:Type 2 diabetes mellitus with hemoglobin A1c goal of less than 7.0% (HCC) Inject 12.5 mg under the skin once a week. Dose increase 2 mL 0 3 08/18/20 24 Active Mounjaro 10 MG/0.5ML Subcutaneous Solution Pen-injector (Tirzepatide)Ind ications:Type 2 diabetes mellitus with hemoglobin A1c goal of less than 7.0% (HCC) Inject 10 mg under the skin once a week. Dose increase 2 mL 0 3 08/19/20 23 Discontinued Hospital, Clinic, or Other Facility Administered Medication Ordered Dose Route Frequency Start Date End Date Status Albuterol Sulfate (Proventil) (5 MG/ML) 0.5% *conc* inhalation solution 2.5 mgIndications:Chronic respiratory failure with hypercapnia (HCC) 2.5 mg NEBULIZER PRN 12/01/2022 12/01/2023 Ac tive documented as of this encounter (statuses as of 08/19/2023) Active Problems Problem Noted Date Diagnosed Date [...] as of this encounter (statuses as of 08/19/2023) Resolved Problems Problem Noted Date Diagnosed Date [...] 11/14/200906/09 Overview: Per HTN Taxonomy. Diabetic polyneuropathy 04/12/2007 1004/2016 Overview: ICD-10 update of inactive term DM [...] as of this encounter (statuses as of 08/19/2023) Immunizations Name Administration Dates Next Due COVID-19 mRNA, LNP-s, No Pre serve, 2-Dose Series (Pfizer) 10/21/2021,03/01/2021,02/07/2021 H1N1 2009 Influenza, IM 11/04/2009 Pneumococcal Conjugate Vacci ne, 20-valent ([id number]) 07/09/2023 Pneumococcal Polysaccharide PPV23 (Pneumovax) 11/03/2015,02/09/2006 SEASONAL [...] Telephone Encounter - Gisel Butler RPh - 08/19/2023 9:37 AM EDT Patient Phone Numbers Spoke to patient. He is agreeable to increase mounjaro dose. Script sent. Diabetic Medications: Metformin HCL 500mg, 2 tabs BID Lantus 28 units AM and 40 units PM Novolog 16 units with meals INC Mounjaro 12.5 mg once weekly x 4 weeks, increase as tolerated GFR >90 as of 08/03/2023 Follow up 09/10/23. Gisel Butler PharmD Clinical Pharmacist Medication Therapy Disease Management 08/19/2023, 9:43 AM * Telephone Encounter - Kristina Kelly PHARM Tech - 08/19/2023 9:24 AM EDT Caller's name: PT Preferred call back number(OFFICE NUMBER FOR ): [phone] Reason for call: Medication question: Pt stating he needs Mounjaro 10 MG/0.5ML Subcutaneous Solution Pen-injector (Tirzepatide) ordered. PT is not sure what dosage. Please call pt to review. Pharm. [facility]. Kristina Kelly Layboy Tender [facility] ([facility]) (Formerly Telepharmacy) 08/19/2023, 9:24 AM documented in this encounter Plan of Treatment Upcoming Encounters Date Type Department Care Team (Late st Contact Info) Description 09/02/2023 6:10 PM EST Pharmacy Pharmacy, [place] [address] [place] [address] [place] [address] [place] [address] 09/10/2023 11:40 AM EST Telemedicine Pharmacy, [place] [address] [place] [address] [facility] [address] [place] [address] 09/30/2023 9:00 AM EST Procedure Only Endoscopy, [facility] [address] [place] [address] aJnak Aldrich MD [address] [place] [address] 12/14/2023 10:40 AM EST Office Visit Family [facility], [place] [address] [place] [facility] [place] [id number] Velasquez Valencia MD [address] [place] [facility] [place] [address] Health Maintenance Due Date Last Done Comments [...] encounter Medical Devices Implanted Type Area Lease Examiner Device Identifier Shelf Expiration Date Model / Serial / Lot Suture [employer] Dbl Load 5.5mm - [id number] Implanted:Qty: 1 on 12/01/2019 by Judith Condon DO at OR [facility] Right: Shoulder [employer] 09/16/2021 [id number] / / [id number] documented as of this encounter Visit Diagnoses Diagnosis Type 2 diabetes mellitus with hemoglobin A1c goal of less than 7.0% (HCC)- Primary documented in this encounter Advance Directives Latest [...] the patient have Health Care Power of Brake Lining Maker? No Care Teams Felt Finisher Relationship Specialty Start Date End Date Velasquez Valencia MD [address] [place] [address] PCP - General Family Medicine 09/09/22 documented as of this encounter
--- OUTSIDE RECORDS SUMMARY | 2023-09-19 09:28 | External Medical Summary | Summary of Care ---
Author Name Unknown Organization [facility] Address [address] [facility] [address] Phone [phone] Care Team Providers Care Reverse Logistics Analyst Name Role Phone Velasquez Valencia MD Primary Care Provider +1- [phone] Reason for Visit * Reason Onset Date Comments Test Results 05/05/2023 Encounter Details Date Type Department Care Team Description 05/05/2023 Telephone Gastroenterology, [facility] [address] [place] [address] Aruna Guzman CRNP [address] [place] [id number] Test Results Allergies Active Allergy Reactions Severity Noted Date Comments Cefaclor Unknown 07/26/2018 As child Empagliflozin Other (Please comment) 05/16/2021 DKA with hospitalization documented as of this encounter (statuses as of 05/05/2023) Medications Medication Sig Dispensed Refills Start Date End Date Status Diclofenac Sodium (VOLTAREN) 1 % gel Place 2 g topically on the skin 2 times a day. To affected area as directed. 100 g 5 01/12/2020 Active docusate sodium (RA COL-RITE) 100 MG Capsule Take 1 Cap by mouth 2 times a day as needed for Constipation. 60 Cap 3 05/07/2020 Active Additional Information Patient not taking.Reported on 02/25/2023 Advil Dual Action 125-250 MG Oral Tablet (Ibuprofen-Acetami nophen) Take 3 Tablets by mouth 2 times a day. 0 Active Droplet Pen [place] 31G X 5 MM (Insulin Pen Needle)Indications :Type 2 diabetes mellitus with hemoglobin A1c goal of less than 7.0% (HCC) use 1 PEN NEEDLE to inject MEDICATION subcutaneously four times a day 400 Each 3 04/10/2022 Active Dicyclomine HCl 10 MG Oral Capsule (Bentyl) take 1 capsule by mouth four times a day 360 Capsule 3 06/10/2022 Active Losartan Potassium 50 MG Oral Tablet [...] WITHDRAWAL SYMPTOMS 54 g 3 10/29/2022 Active metFORMIN HCl 500 MG Oral Tablet (Glucophage) TAKE 2 TABLETS BY MOUTH IN THE MORNING AND IN THE EVENING 360 Tablet 3 11/16/2022 Active Metoprolol Succinate ER 50 MG Oral Tablet Extended Release 24 Hour (toPROL XL)Indications:Sin us tachycardia Take 1 and a half tablet by mouth daily 135 Tablet 3 01/05/2023 Active Pantoprazole Sodium 40 MG Oral Tablet Delayed Release (Protonix) take 1 tablet by mouth twice a day 180 Tablet 1 01/07/2023 Active Gabapentin 100 MG Oral Capsule (Neurontin)Indicat ions:Neuropathy take 1 capsule by mouth every morning and 2 capsules by mouth at bedtime 270 Capsule 1 01/11/2023 Active oxygen IN GAS Use 2 L/min(Oxygen) as directed at bedtime. 0 Active Budesonide-Formote rol Fumarate 80-4.5 MCG/ACT Inhalation Aerosol (Symbicort) Inhale 2 Puffs by mouth in the morning and 2 Puffs before bedtime. 10.2 g 12 01/27/2023 Active Cyclobenzaprine HCl 10 MG Oral Tablet (Flexeril)Indicati ons:Lumbar disc herniation take 1 tablet by mouth at bedtime ONLY if needed 30 Tablet 1 02/12/2023 Active Metoclopramide HCl 10 MG Oral Tablet (Reglan) take 1 tablet by mouth three times a day ( 30 MINUTES before MEALS ) 270 Tablet 1 02/18/2023 Active polyethylene glycol 3350 119 gram OR POWD Take 119 g by mouth once. 0 Active Insulin Glargine Solostar 100 UNIT/ML Subcutaneous Solution Pen-injectorIndica tions:Type 2 diabetes mellitus with hemoglobin A1c goal of less than 7.0% (HCC) Inject 25 units in the morning and 38 units in the evening 60 mL 3 03/01/2023 Active NovoLOG FlexPen 100 UNIT/ML Subcutaneous Solution Pen-injector (insulin aspart)Indications :Type 2 diabetes mellitus with hemoglobin A1c goal of less than 7.0% (HCC) inject 15-16 units subcutaneously three times a day with meals 45 mL 3 03/01/2023 Active Famotidine 20 MG Oral Tablet (Pepcid) Take 1 Tablet by mouth every night at bedtime. 90 Tablet 3 04/24/2023 Active Mounjaro 2.5 MG/0.5ML Subcutaneous Solution Pen-injector (Tirzepatide)Indic ations:Type 2 diabetes mellitus with hemoglobin A1c goal of less than 7.0% (HCC) Inject 2.5 mg under the skin once a week. Stop victoza 2 mL 0 04/23/2023 Active Hospital, Clinic, or Other Facility Administered Medication Ordered Dose Route Frequency Start Date End Date Status Albuterol Sulfate (Proventil) (5 MG/ML) 0.5% *conc* inhalation solution 2.5 mgIndications:Chronic respiratory failure with hypercapnia (HCC) 2.5 mg NEBULIZER PRN 12/01/2022 12/01/2023 Ac tive documented as of this encounter (statuses as of 05/05/2023) Active Problems Problem Noted Date Neuropathy 02/24/2023 Restrictive lung disease secondary to [...] as of this encounter (statuses as of 05/05/2023) Resolved Problems Problem Noted Date Resolved Date [...] as of this encounter (statuses as of 05/05/2023) Immunizations Name Administration Dates Next Due COVID-19 mRNA, LNP-s, No Pre serve, 2-Dose Series (Pfizer) 10/21/2021,03/01/2021,02/07/2021 H1N1 2009 Influenza, IM 11/04/2009 Pneumococcal Polysaccharide PPV23 (Pneumovax) 11/03/2015,02/09/2006 Seasonal Influenza, Quadriva lent, No Preserve, 6 Mons & Above, IM 10/16/2022,07/31/2021,09/16/2020,07/12,07/05/2018 Seasonal Influenza, Quadriva lent, No Preserve, [...] encounter Miscellaneous Notes * Telephone Encounter - Tram Castaneda RN - 05/05/2023 10:07 AM EDT ----- Message from SHY Celeste sent at 05/05/2023 9:39 AM EDT ----- Please call and inform patient that his gastric emptying study showed markedly delayed gastric emptying. Give information on gastroparesis type diet. He is to keep his scheduled appointments for EGD and follow up in GI clinic. SHY Tse documented in this encounter Plan of Treatment Upcoming Encounters Date Type Specialty Care Team Description 06/03/2023 Procedure Only Endoscopy Kenneth Butterfield MD [address] [place] [id number] 06/08/2023 Office Visit Gastroenterology Alondra Cleaning CRNP [address] [place] [address] 06/18/2023 Telemedicine Pharmacy [facility] [address] [place] [address] 07/09/2023 Office Visit Family Medicine Velasquez Valencia MD [address] [place] [address] 09/30/2023 Procedure Only Endoscopy Janak Aldrich MD [address] [place] [address] Health Maintenance Due Date Last Done Comments Hepatitis B (1 of 3 - 3-dose series) 1973 HIV Screening 1988 Hepatitis C Screening 1991 Pneumococcal Vaccine: Pediatrics (0 to 5 Years) and At-Risk Patients (6 to 64 Years) (2 - PCV) 11/03/2016 11/03/2015, 02/09/2006 COVID-19 Vaccine (4 - Pfizer series) 12/16/2021 10/21/2021, 03/01/2021, 02/07/2021 DIABETES-EYE EXAM 03/07/2022 03/07/2021, , 08/21/2008 (Unable to do), Additional history exists DIABETES-FOOT EXAM 03/07/2022 03/07/2021, 0 11/27/2019, 01/13/2018, Additional history exists Influenza Vaccine (FLU shot) (#1) 2023 10/16/2022, 07/31/2021, 09/16/2020, Additional history exists HbA1c 07/08/2023 01/05/2023, 09/17, 12/01/2021, Additional history exists DISCUSS TOBACCO CESSATION (REFER TO SMARTSET #3291) 10/16/2023 10/16/2022 Albumin/Creatinine Ratio 01/06/2024 023, 09/01/2021, 05/07/2015, Additional history exists GFR 02/08/2024 02/07/2023, 12/17, 01/13/2022, Additional history exists Depression Screening, Annual for Pts 12 and Over 02/25/2024 02/24/2023 Lipid Panel 01/06/2028 01/05/2023, 08/18, 01/08/2011, Additional history exists COLONOSCOPY-EVERY 5 YRS AGES 18-100 04/15/2028 04/15/2023, 04/18/2015 DTaP,Tdap,and Td Vaccines (2 - Td or Tdap) 05/01/2028 05/01/2018 GARDASIL-HPV IMMUNIZATION SERIES Aged Out No longer eligible based on patient's age to complete this topic MENINGOCOCCAL (MENACTRA/MENVEO) Aged Out No longer eligible based on patient's age to complete this topic documented as of this encounter Medical Devices Implanted Type Area Planning Division Superintendent Device Identifier Shelf Expiration Date Model / Serial / Lot Suture [place] Dbl Load 5.5mm - [id number] Implanted:Qty: 1 on 12/01/2019 by Judith Condon, at OR [facility] Right: Shoulder [employer] 09/16/2021 [id number] -[id number] / / [id number] documented as of this encounter Advance Directives [...] the patient have Health Care Power of Mining Machinery Assembler? No Care Teams Reverse Logistics Analyst Relationship Specialty Start Date End Date Velasquez Valencia MD [address] [place] [address] PCP - General Family Medicine 09/09/22 documented as of this encounter
--- OUTSIDE RECORDS SUMMARY | 2023-09-19 09:28 | External Medical Summary | Summary of Care ---
Author Name Unknown Organization [facility] Address [address] [place] [address] Phone [phone] Care Team Providers Care Channel Cementer Name Role Phone Velasquez Valencia MD Primary Care Provider +1- [phone] Reason for Visit * Reason Comments Dosage Adjustment In Person (Anticoag Cl inic) Diabetes Follow-Up Encounter Details Date Type Department Care Team Description 06/18/2023 Telemedicine Pharmacy, [place] [address] [place] [address] [facility] [address] [place] [address] Type 2 diabetes mellitus with hemoglobin A1c goal of less than 7.0% ([facility])*; HTN, goal below 140/90; Type 2 diabetes mellitus with diabetic autonomic neuropathy, with long-term current use of insulin ([facility]) Allergies Active Allergy Reactions Severity Noted Date Comments Cefaclor Unknown 07/26/2018 As child Empagliflozin Other (Please comment) 05/16/2021 DKA with hospitalization documented as of this encounter (statuses as of 06/18/2023) Medications Medication Sig Dispensed Refills Start Date [...] at bedtime 270 Capsule 1 3 Active Cyclobenzaprine HCl 10 MG Oral Tablet (Flexeril)Indicat ions:Lumbar disc herniation take 1 tablet by mouth at bedtime ONLY if needed 30 Tablet 1 3 Active Dicyclomine HCl 10 MG [...] Tablet 1 Tablet daily. 0 3 Active Mounjaro 7.5 MG/0.5ML Subcutaneous Solution Pen-injector (Tirzepatide)Yanet cations:Type 2 diabetes mellitus with hemoglobin A1c goal of less than 7.0% (HCC) Inject 7.5 mg under the skin once a week. Dose increase 2 mL 0 3 05/27/20 24 Active metFORMIN HCl 500 MG Oral Tablet [...] the evening 75 mL 3 3 Active NovoLOG FlexPen 100 UNIT/ML Subcutaneous Solution Pen-injector (insulin aspart)Indication s:Type 2 diabetes mellitus with hemoglobin A1c goal of less than 7.0% (HCC) inject 16 units subcutaneously three times a day with meals 45 mL 3 3 Active Droplet Pen [place] 31G X 5 MM (Insulin Pen Needle)Indication s:Type 2 diabetes mellitus with hemoglobin A1c goal of less than 7.0% (HCC) Use to inject insulin 4 times daily 400 Each 3 3 Active Droplet Pen [place] 31G X 5 MM (Insulin Pen Needle)Indication s:Type 2 diabetes mellitus with hemoglobin A1c goal of less than 7.0% (HCC) use 1 PEN NEEDLE to inject MEDICATION subcutaneously four times a day 400 Each 3 2 06/18/20 23 Discontinu ed(Refill) metFORMIN HCl 500 MG Oral Tablet (Glucophage) TAKE 2 TABLETS BY MOUTH IN THE MORNING AND IN THE EVENING 360 Tablet 3 3 06/18/20 23 Discontinu ed(Refill) Insulin Glargine Solostar 100 UNIT/ML Subcutaneous Solution Pen-injectorIndic ations:Type 2 diabetes mellitus with hemoglobin A1c goal of less than 7.0% (HCC) Inject 25 units in the morning and 38 units in the evening 60 mL 3 3 06/18/20 23 Discontinu ed(Refill) NovoLOG FlexPen 100 UNIT/ML Subcutaneous Solution Pen-injector (insulin aspart)Indication s:Type 2 diabetes mellitus with hemoglobin A1c goal of less than 7.0% (HCC) inject 15-16 units subcutaneously three times a day with meals 45 mL 3 3 06/18/20 23 Discontinu ed(Refill) Hospital, Clinic, or Other Facility Administered Medication Ordered Dose Route Frequency Start Date End Date Status Albuterol Sulfate (Proventil) (5 MG/ML) 0.5% *conc* inhalation solution 2.5 mgIndications:Chronic respiratory failure with hypercapnia (HCC) 2.5 mg NEBULIZER PRN 12/01/2022 12/01/2023 Ac tive documented as of this encounter (statuses as of 06/18/2023) Active Problems Problem Noted Date COPD, moderate [...] as of this encounter (statuses as of 06/18/2023) Resolved Problems Problem Noted Date Resolved Date [...] as of this encounter (statuses as of 06/18/2023) Immunizations Name Administration Dates Next Due COVID-19 [...] as of this encounter Progress Notes * Gisel Parulesthela Butler, [facility] - 06/18/2023 10:30 AM EDT Images from the original note were not included. Patient location: HOME. I was in a hospital or clinic location. After connecting through [employer],patient was verified with two unique identifiers. Patient (or authorized legal bilingual sales representative) was then informed that this was a Telemedicine visit and being conducted confidentially over secure lines. Methods to assure confidentiality were taken. Patient acknowledged consent and understanding of pr ivacy and security of the Telemedicine visit. The patient agreed to participate. Medication Therapy Disease Management Clinic - Diabetes Management Progress Note Bry Akhtar Zach, identified by name and date of , is a 47 year old male being seen for diabetes management/education. Patient presents for return diabetic visit. DIABETES: Current diabetic medications: Metformin HCL 500mg, 2 tabs BID Lantus 25 units AM and 38 units PM Novolog 16 units with meals INC Mounjaro 7.5 mg once weekly x 4 weeks, increase as tolerated [has 2 more doses of 5 mg to go] GFR >90 as of 01/05/2023 Medication Injection Site: Abdomen Lifestyle: Diet: unchanged Glucose Review/SMBG: Readings obtained from patient device- reflecting 5 mg mounjaro Hypoglycemia: Does your blood sugar go below 70 mg/dL? No Hyperglycemia symptoms present: none Recent Labs Units 01/05/23 1133 09/28/22 1057 12/01/21 0506 HEMOGLOBIN A1C - [facility] % 7.8* 8.8* 8.2* Recent Labs Units 02/07/23 0000 01/05/23 1133 01/13/22 1305 ESTIMATED GLOMERULAR FILTRATION RATE - [facility] mL/min -- >90 >90 EGFR-OUTSIDE LAB ML/MIN/1.73M2 92.4 -- -- CREATININE - [facility] mg/dL -- 0.9 0.8 CREATININE-OUTSIDE LAB MG/DL 0.96 -- -- HYPERTENSION: Patient on ACEi/ARB: yes BP Readings from Last 3 Encounters: 05/25/23 124/70 02/25/23 138/67 05/10/23 144/72 Blood pressure at goal: yes HYPERLIPIDEMIA: Patient is taking moderate or high intensity statin: No Current regimen: none , was previously on atorvastatin Goal statin intensity: high The 10-year ASCVD risk score (Lynne KAT, et al., 2019) is: 21.9% Values used to calculate the score: Age: 47 years Sex: Male Is Non- : No Diabetic: Yes Tobacco smoker: Yes Systolic Blood Pressure: 124 mmHg Is BP treated: Yes HDL Cholesterol: 38 mg/dL Total Cholesterol: 219 mg/dL Recent Labs Units 01/05/23 1133 09/01/21 1038 LDL CHOLESTEROL (CALCULATED) - [facility] mg/dL 126 116 HEALTH MAINTENANCE REVIEW: Health Maintenance Due Topic Date Due Hepatitis B (1 of 3 - 3-dose series) Never done HIV Screening Never done Alpha-1 Antitrypsin Never done Hepatitis C Screening Never done Pneumococcal Vaccine: Pediatrics (0 to 5 Years) and At-Risk Patients (6 to 64 Years) (2 - PCV) 11/03/2016 COVID-19 Vaccine (4 - Pfizer series) 12/16/2021 DIABETES-EYE EXAM 03/07/2022 DIABETES-FOOT EXAM 03/07/2022 Influenza Vaccine (FLU shot) (1) 06/18/2023 HbA1c 07/08/2023 ASSESSMENT & PLAN: ICD-10-CM 1. Type 2 diabetes mellitus with hemoglobin A1c goal of less than 7.0% (HCC) E11.9 2. HTN, goal below 140/90 I10 Considerations: - Jardiance caused DKA BG Readings - Blood sugars uncontrolled. Reviewed Dexcom download. Improvements noted at least. No low blood sugars. Medications - Reviewed current regimen, patient is adherent to regimen. Currently has 2 more doses of mounjaro 5 mg left, then will increase to Mounjaro 7.5 mg. Plan to send Mounjaro 10 mg to [place] in about 2-3 weeks to ensure therapy is not interrupted. Will increase basal insulin in the meantime. Patient agreeable. At next visit, will need to discuss statin therapy with patient, as he was previously on atorvastatin, but it is no longer on his medication list. Diet, Exercise, Lifestyle - No significant lifestyle changes since last visit. Patient is agreeable to SMBG with Dexcom G6 daily. Patient aware to contact clinic if any hypoglycemia before next visit. MEDICATION CHANGES: yes, see below; preferred pharmacy: [facility] ([facility]) Diabetic Medications: Metformin HCL 500mg, 2 tabs BID INC Lantus 28 units AM and 40 units PM Novolog 16 units with meals INC Mounjaro 7.5 mg once weekly x 4 weeks, increase as tolerated [has 2 more doses of 5 mg to go] GFR >90 as of 01/05/2023 HEALTH MAINTENANCE INTERVENTIONS: Labs: overdue for A1c- order placed Immunizations: due for pneumo and flu Foot Exam: due, unable to complete today due to virtual visit Eye Exam: due, unable to complete today due to virtual visit Annual Wellness Visit: N/A FOLLOW UP: Return to clinic in 8 weeks 08/13/2023 Gisel Butler RPh Clinical Pharmacist - Verification Specialist Medication Therapy Management Clinic 06/18/2023, 10:30 AM documented in this encounter Plan of Treatment Upcoming Encounters Date Type Specialty Care Team Description 07/09/2023 Office Visit Family Medicine Velasquez Valencia MD [address] [place] [id number] 08/13/2023 Telemedicine Pharmacy [facility] [address] [place] [id number] 09/30/2023 Procedure Only Endoscopy Janak Aldrich MD [address] [place] [address] Scheduled Orders Name Type Priority Associated Diagnoses Orde r Schedule HEMOGLOBIN A1C Lab Routine Type 2 diabetes mellitus with diabetic autonomic neuropathy, with long-term current use of insulin (HCC) Expected: 06/18/2023 (Approximate), Expires: 07/18/2024 Health Maintenance Due Date Last Done Comments Hepatitis B (1 of 3 - 3-dose series) 1973 HIV Screening 1988 Alpha-1 Antitrypsin 1991 Hepatitis C Screening 1991 Pneumococcal Vaccine: Pediatrics [...] for Pts 12 and Over 02/25/2024 02/24/2023 O2 ASSESSMENT COMPLETED IN PAST YEAR FOR COPD 05/25/2024 05/25/2023 Lipid Panel 01/06/2028 01/05/2023, 08/18, 01/08/2011, Additional [...] this encounter Medical Devices Implanted Type Area Package Lift Operator Device Identifier Shelf Expiration Date Model / Serial / Lot Suture [place] Dbl Load 5.5mm - [id number] Implanted:Qty: 1 on 12/01/2019 by Judith Condon, at [place] [facility] Right: Shoulder [employer] 09/16/2021 [id number] -[id number] / / [id number] documented as of this encounter Visit Diagnoses Diagnosis Type 2 diabetes mellitus with hemoglobin A1c goal of less than 7.0% (HCC)- Primary HTN, goal below 140/90 Unspecified essential hypertension Type 2 diabetes mellitus with diabetic autonomic neuropathy, with long-term current use of insulin (HCC) documented in this encounter Advance Directives Latest [...] the patient have Health Care Power of Peanut Roaster? No Care Teams Channel Cementer Relationship Specialty Start Date End Date Velasquez Valencia MD [address] [place] [address] PCP - General Family Medicine 09/09/22 documented as of this encounter
--- OUTSIDE RECORDS SUMMARY | 2023-09-19 09:28 | External Medical Summary | Summary of Care ---
Author Name Unknown Organization [facility] Address [address] [place] [address] Phone [phone] Care Team Providers Care Global Program Manager Name Role Phone Velasquez Valencia MD Primary Care Provider +1- [phone] Encounter Details Date Type Department Care Team Description 05/24/2023 Orders Only [facility] [address] [place] [address] Velasquez Valencia MD [address] [place] [address] Allergies Active Allergy Reactions Severity Noted Date Comments Cefaclor Unknown 07/26/2018 As child Empagliflozin Other (Please comment) 05/16/2021 DKA with hospitalization documented as of this encounter (statuses as of 05/24/2023) Medications Medication Sig Dispensed Refills Start Date [...] times a day. 0 Active Droplet Pen [place] 31G X 5 MM (Insulin Pen Needle)Indications :Type 2 diabetes mellitus with hemoglobin A1c goal of less than 7.0% ([facility]) use 1 PEN NEEDLE to inject MEDICATION subcutaneously four times a day 400 Each 3 04/10/2022 Active Losartan Potassium 50 MG Oral Tablet [...] hemoglobin A1c goal of less than 7.0% ([facility]) Inject 25 units in the morning and 38 units in the evening 60 mL 3 03/01/2023 Active NovoLOG FlexPen 100 UNIT/ML Subcutaneous Solution Pen-injector (insulin aspart)Indications :Type 2 diabetes mellitus with hemoglobin A1c goal of less than 7.0% ([facility]) inject 15-16 units subcutaneously three times a [...] MEALS ) 270 Tablet 1 05/10/2023 Active Mounjaro 5 MG/0.5ML Subcutaneous Solution Pen-injector (Tirzepatide)Indic ations:Type 2 diabetes mellitus with hemoglobin A1c goal of less than 7.0% (HCC) Inject 5 mg under the skin once a week. Dose increase 2 mL 0 05/12/2023 Active Hospital, Clinic, or Other Facility Administered Medication Ordered Dose Route Frequency Start Date End Date Status Albuterol Sulfate (Proventil) (5 MG/ML) 0.5% *conc* inhalation solution 2.5 mgIndications:Chronic respiratory failure with hypercapnia (HCC) 2.5 mg NEBULIZER PRN 12/01/2022 12/01/2023 Ac tive documented as of this encounter (statuses as of 05/24/2023) Active Problems Problem Noted Date Neuropathy 02/24/2023 [...] as of this encounter (statuses as of 05/24/2023) Resolved Problems Problem Noted Date Resolved Date [...] as of this encounter (statuses as of 05/24/2023) Immunizations Name Administration Dates Next Due COVID-19 mRNA, LNP-s, No Pre serve, 2-Dose Series ([employer]) 10/21/2021,03/01/2021,02/07/2021 H1N1 2009 Influenza, IM 11/04/2009 Pneumococcal [...] Only Endoscopy Kenneth Butterfield MD [address] [place] [address] 06/08/2023 Office Visit Gastroenterology Alondra Cleaning CRNP [address] [place] [address] 06/18/2023 Telemedicine Pharmacy [facility] [address] [place] [address] 07/09/2023 Office Visit Family Medicine Velasquez Valencia MD [address] [place] [address] 09/30/2023 Procedure Only Endoscopy Janak Aldrich MD [address] [place] [address] Pending Results Name Type Priority Associated Diagnoses Date /Time OUTSIDE LAB-CORONAVIRUS (COVID-19) Lab Routine 05/23/2023 Health Maintenance Due Date Last Done Comments [...] this encounter Medical Devices Implanted Type Area Animal Cruelty Investigator Device Identifier Shelf Expiration Date Model / Serial / Lot Suture [place] Dbl Load 5.5mm - [id number] Implanted:Qty: 1 on 12/01/2019 by Judith Condon, DO at OR [facility] Right: Shoulder [employer] 09/16/2021 [id number] -[id number] / / [id number] documented as of this encounter Advance Directives [...] the patient have Health Care Power of Benzol Still Operator? No Care Teams Global Program Manager Relationship Specialty Start Date End Date Velasquez Valencia MD [address], [place] [id number] PCP - General Family Medicine 09/09/22 documented as of this encounter
--- OUTSIDE RECORDS SUMMARY | 2023-09-19 09:28 | External Medical Summary | Summary of Care ---
Author Name Unknown Organization [facility] Address [address] [facility] [address] Phone [phone] Care Team Providers Care Wastewater Project Engineer Name Role Phone Velasquez Valencia MD Primary Care Provider +1- [phone] Reason for Visit * Reason Onset Date Comments Test Results 05/05/2023 Encounter Details Date Type Department Care Team Description 05/05/2023 Telephone Gastroenterology, [facility] [address] [place] [address] Aruna Guzman CRNP [address] [place] [address] Test Results Allergies Active Allergy Reactions Severity [...] times a day. 0 Active Droplet Pen [place] 31G X 5 MM (Insulin Pen Needle)Indications [...] Influenza, Split, I IV3, With Preserve, Inj 06/27/2015,07/07/2010,09/02/2009,10/26,08/22/2003 TDAP (age 10 and older)(Boostrix) 05/01/2018 documented [...] Encounter - Tram Castaneda RN - 05/05/2023 10:39 AM EDT Called patient. Reports that he has had gastroparesis for years. I did review it with him as well as dietary interventions. Offered to mail him more education. he declined. Does not feel like he needs more information sent to him regarding this. * Telephone Encounter - Tram Castaneda RN [...] Procedure Only Endoscopy Kenneth Butterfield MD [address] [place] [address] 06/08/2023 Office Visit Gastroenterology Alondra Cleaning CRNP [address] [place] [address] 06/18/2023 Telemedicine Pharmacy [facility] [address] [place] [address] 07/09/2023 Office Visit Family Medicine Velasquez Valencia MD [address] [place] [facility] [place] [address] 09/30/2023 Procedure Only Endoscopy Janak Aldrich MD [address] [place] [address] Health Maintenance Due Date Last Done Comments [...] exists DISCUSS TOBACCO CESSATION (REFER TO SMARTSET #[id number]) 10/16/2023 10/16/2022 Albumin/Creatinine Ratio 01/06/2024 023, 09/01/2021, [...] this encounter Medical Devices Implanted Type Area Community Living Coach Device Identifier Shelf Expiration Date Model / Serial / Lot Suture [place] Dbl Load 5.5mm - [id number] Implanted:Qty: 1 on 12/01/2019 by Judith Condon, at OR [facility] Right: Shoulder [employer] 09/16/2021 [id number] -[id number] / / [id number] documented as of this encounter Advance Directives [...] the patient have Health Care Power of Coal Trammer? No Care Teams Wastewater Project Engineer Relationship Specialty Start Date End Date Velasquez Valencia MD [address] [place] [address] PCP - General Family Medicine 09/09/22 documented as of this encounter
--- OUTSIDE RECORDS SUMMARY | 2023-09-19 09:28 | External Medical Summary | Summary of Care ---
Author Name Unknown Organization [facility] Address [address] [place] [address] Phone [phone] Care Team Providers Care Casing Grader Name Role Phone Velasquez Valencia MD Primary Care Provider [phone] Reason for Visit * Reason Comments Emergency Department Follow-Up Encounter Details Date Type Department Care Team Description 05/25/2023 Office Visit [facility] [address] [place] [address] Veronica Goodrich MD [address] [place] [address] Rhinovirus infection*; Bronchitis, complicated; Tobacco use disorder; Chronic respiratory failure with hypercapnia ([facility]); COPD, moderate ([facility]); Diabetic polyneuropathy associated with type 2 diabetes mellitus ([facility]); Type 2 diabetes mellitus with hemoglobin A1c goal of less than 7.0% ([facility]); Restrictive lung disease secondary to obesity; Obstructive sleep apnea; History of DVT (deep vein thrombosis); Body mass index (BMI) of 40.0 to 44.9 in adult (HCC) Allergies Active Allergy Reactions Severity Noted Date Comments Cefaclor Unknown 07/26/2018 As child Empagliflozin Other (Please comment) 05/16/2021 DKA with hospitalization documented as of this encounter (statuses as of 05/25/2023) Medications Medication Sig Dispensed Refills Start Date [...] times a day. 0 Active Droplet Pen Isola 31G X 5 MM (Insulin Pen Needle)Indications [...] capsules by mouth at bedtime 270 Capsule 05/10/2023 Active Cyclobenzaprine HCl 10 MG Oral [...] hemoglobin A1c goal of less than 7.0% ([facility]) Inject 5 mg under the skin once a week. Dose increase 2 mL 0 05/12/2023 Active Amoxicillin 500 MG Oral Tablet 1 Tablet in the morning and 1 Tablet at noon and 1 Tablet before bedtime. 0 05/23/2023 Active Doxycycline Hyclate 100 MG Oral Tablet 1 Tablet in the morning and 1 Tablet before bedtime. 0 05/23/2023 Active Magnesium Oxide 400 MG Oral Tablet 1 Tablet daily. 0 05/23/2023 A [facility], or Other Facility Administered Medication Ordered Dose Route Frequency Start Date End Date Status Albuterol Sulfate (Proventil) (5 MG/ML) 0.5% *conc* inhalation solution 2.5 mgIndications:Chronic respiratory failure with hypercapnia (HCC) 2.5 mg NEBULIZER PRN 12/01/2022 12/01/2023 Ac tive documented as of this encounter (statuses as of 05/25/2023) Active Problems Problem Noted Date COPD, moderate [...] as of this encounter (statuses as of 05/25/2023) Resolved Problems Problem Noted Date Resolved Date [...] as of this encounter (statuses as of 05/25/2023) Immunizations Name Administration Dates Next Due COVID-19 mRNA, LNP-s, No Pre serve, 2-Dose Series (Roundbox) 10/21/2021,03/01/2021,02/07/2021 H1N1 2009 Influenza, IM 11/04/2009 Pneumococcal [...] Reading Time Taken Comments Blood Pressure 124/70 05/25/2023 1:39 PM EDT Pulse 112 05/25/2023 1:39 PM EDT Temperature 36.3 C (97.4 F) 05/25/2023 1:39 PM ED T Respiratory Rate 20 05/25/2023 1:39 PM EDT Oxygen Saturation 94% 05/25/2023 1:39 PM EDT Inhaled Oxygen Concentration - - Weight 147.7 kg (325 lb 9.6 oz) 05/25/2023 1:39 PM EDT Height - - Body Mass Index 41.25 02/25/2023 2:10 PM EDT documented in this encounter Functional Status [...] as of this encounter Progress Notes * Veronica Goodrich MD - 05/25/2023 2:08 PM EDT Subjective Bry Cordero Hermilo Lewis. is a 47 year old male. Chief Complaint Patient presents with Emergency Department Follow-Up HPI: Here for ER f/u on bronchitis , due to rhino virus Was told PNA but CXR showed mild vascular congestion but no PNA finding Was given amoxicillin and doxy He started having sx about 4 days ago Visited ER 2 days ago Known heavy chronic smoking, COPD, chronic resp failure , DAMION on CPAP, restrictive lung ds due to morbid obesity Not compliant on inhaler use Smoking cessation - emphasized again - still smoking more than one pack a day Up to 2 packs Type 2 DM recent hba1c 7.8 F/u with MTM , DM specialty Insulin dependant and also taking metformin , started mounjaro 1 mo ago Encouraged diet exercise PMH: Patient Active Problem List Diagnosis Code Type 2 diabetes mellitus with hemoglobin A1c goal of less than 7.0% ([facility]) E11.9 Gastroparesis K31.84 IBS (irritable bowel syndrome) K58.9 Diabetic polyneuropathy associated with type 2 diabetes mellitus ([facility]) E11.42 Dyslipidemia E78.5 Tobacco use disorder F17.200 History of DVT (deep vein thrombosis) Z86.718 Obesity, Class II, BMI 35-39.9, isolated (see actual BMI) E66.9 Combined arterial insufficiency and corporo-venous occlusive erectile dysfunction N52.03 DDD (degenerative disc disease), cervical M50.30 Cervical spinal stenosis M48.02 Gastroesophageal reflux disease without esophagitis K21.9 Type 2 diabetes mellitus with autonomic neuropathy ([facility]) E11.43 Precordial pain R07.2 Chronic respiratory failure with hypercapnia ([facility]) J96.12 Lumbar disc herniation M51.26 Body mass index (BMI) of 40.0 to 44.9 in adult ([facility]) Z68.41 Obstructive sleep apnea G47.33 Restrictive lung disease secondary to obesity J98.4, E66.9 Neuropathy G62.9 COPD, moderate ([facility]) J44.9 Current Outpatient Medications Medication Sig Dispense Refill docusate sodium (RA COL-RITE) 100 MG Capsule Take 1 Cap by mouth 2 times a day as needed for Constipation. 60 Cap 3 Advil Dual Action 125-250 MG Oral Tablet (Ibuprofen-Acetaminophen) Take 3 Tablets by mouth 2 times a day. Droplet Pen Isola 31G X 5 MM (Insulin Pen Needle) use 1 PEN NEEDLE to inject MEDICATION subcutaneously four times a day 400 Each 3 Losartan Potassium 50 MG Oral Tablet (Cozaar) take 1 tablet by mouth once daily 90 Tablet 3 Albuterol Sulfate HFA 108 (90 Base) MCG/ACT Inhalation Aerosol Solution inhale 2 puffs by mouthand INTO THE LUNGS every 6 hours if needed for cough shortness of breath or WITHDRAWAL SYMPTOMS 54 g 3 metFORMIN HCl 500 MG Oral Tablet (Glucophage) TAKE 2 TABLETS BY MOUTH IN THE MORNING AND IN THEEVENING 360 Tablet 3 Metoprolol Succinate ER 50 MG Oral Tablet Extended Release 24 Hour (toPROL XL) Take 1 and a half tablet by mouth daily 135 Tablet 3 Pantoprazole Sodium 40 MG Oral Tablet Delayed Release (Protonix) take 1 tablet by mouth twice aday 180 Tablet 1 Budesonide-Formoterol Fumarate 80-4.5 MCG/ACT Inhalation Aerosol (Symbicort) Inhale 2 Puffs by mouth in the morning and 2 Puffs before bedtime. 10.2 g 12 Insulin Glargine Solostar 100 UNIT/ML Subcutaneous Solution Pen-injector Inject 25 units in themorning and 38 units in the evening 60 mL 3 NovoLOG FlexPen 100 UNIT/ML Subcutaneous Solution Pen-injector (insulin aspart) inject 15-16 units subcutaneously three times a day with meals 45 mL 3 Famotidine 20 MG Oral Tablet (Pepcid) Take 1 Tablet by mouth every night at bedtime. 90 Tablet 3 Gabapentin 100 MG Oral Capsule (Neurontin) take 1 capsule by mouth every morning and 2 capsulesby mouth at bedtime 270 Capsule 1 Cyclobenzaprine HCl 10 MG Oral Tablet (Flexeril) take 1 tablet by mouth at bedtime ONLY if needed 30 Tablet 1 Dicyclomine HCl 10 MG Oral Capsule (Bentyl) take 1 capsule by mouth four times a day 360 Capsule 3 Metoclopramide HCl 10 MG Oral Tablet (Reglan) take 1 tablet by mouth three times a day ( 30 MINUTES before MEALS ) 270 Tablet 1 Mounjaro 5 MG/0.5ML Subcutaneous Solution Pen-injector (Tirzepatide) Inject 5 mg under the skinonce a week. Dose increase 2 mL 0 Amoxicillin 500 MG Oral Tablet 1 Tablet in the morning and 1 Tablet at noon and 1 Tablet beforebedtime. Doxycycline Hyclate 100 MG Oral Tablet 1 Tablet in the morning and 1 Tablet before bedtime. Magnesium Oxide 400 MG Oral Tablet 1 Tablet daily. Diclofenac Sodium (VOLTAREN) 1 % gel Place 2 g topically on the skin 2 times a day. To affectedarea as directed. 100 g 5 CPAP every night at bedtime. oxygen IN GAS Use 2 L/min(Oxygen) as directed at bedtime. polyethylene glycol 3350 119 gram OR POWD Take 119 g by mouth once. Current Facility-Administered Medications Medication Dose Route Frequency Provider Last Rate Last Admin Albuterol Sulfate (Proventil) (5 MG/ML) 0.5% *conc* inhalation solution 2.5 mg 2.5 mg NebulizerPRN Shukri Mendez PA-C 2.5 mg at 12/02/22 1327 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 Current use of insulin ([facility]) 09/13/2017 DDD (degenerative disc disease), cervical 07/12/2019 Diabetes mellitus type 2, insulin dependent ([facility]) 07/05/2017 Diabetic polyneuropathy associated with type 2 diabetes mellitus ([facility]) 07/24/2016 Displacement of lumbar intervertebral disc without myelopathy DM type 2, goal: symptom mgmt ([facility]) 09/13/2017 DM type 2, not at goal ([facility]) Dyslipidemia, goal LDL below 70 07/24/2016 Gastroesophageal reflux disease without esophagitis 05/07/2020 Gastroparesis 08/27/2015 GERD (gastroesophageal reflux disease) History of DVT (deep vein thrombosis) 04/19/2019 HTN, goal below 140/90 12/23/2015 Per HTN Protocol #27. HTN, goal: symptom mgmt only 09/13/2017 IBS (irritable bowel syndrome) 08/27/2015 Intellectual disability 10/25/2019 Major depressive disorder, recurrent, severe without psychotic features ([facility]) 12/22/2016 Obesity, Class II, BMI 35-39.9, isolated (see actual BMI) 04/19/2019 OTHER osseochondrosis ankle Primary localized osteoarthrosis, lower leg Sleep apnea, obstructive Tobacco use disorder 12/22/2016 Type 2 diabetes mellitus with hemoglobin A1c goal of less than 8.0% ([facility]) 07/05/2017 Past Surgical History: Procedure Laterality Date ARTHO,SHOUL,W/ROTATOR CUFF Right 12/01/2019 ARTHROSCOPY SHOULDER ROTATOR CUFF performed by Judith Condon DO at OR [facility] COLONOSCOPY, DIAGNOSTIC (RECTUM) 04/18/2015 adenomatous polyp, repeat 5 yrs/[facility] EGD, FLEXIBLE, DIAGNOSTIC 10/17/2014 mild-mod inflammation, repeat 1-2 mo/[facility] EGD, FLEXIBLE, DIAGNOSTIC 04/17/2015 normal bx/inpt [facility] EGD, FLEXIBLE, DIAGNOSTIC 05/08/2019 reflux esophagitis, gastritis, duodenitis, repeat 6 wks / [facility] EGD, FLEXIBLE, DIAGNOSTIC 08/18/2019 normal-EGD/[place] EGD, FLEXIBLE, DIAGNOSTIC N/A 05/02/2020 biopsies normal/EGD INJECT DX/THER SUBSTANCE INTERLAMINAR CERVICAL/THORACIC W IMAGE GUIDE 08/17/2019 INJECTION SPINE LUMBAR CERVICAL OR THORACIC performed by Dario Nails DO at OR [facility] KNEE ARTHROSCOPY, DIAGNOSTIC l knee REMOVAL OF TONSILS, UNDER AGE 10 SHOULDER ARTHROSCOPY, BICEPS TENODESIS Right 12/01/2019 ARTHROSCOPY SHOULDER BICEP TENODESIS performed by Judith Condon DO at OR [facility] SHOULDER ARTHROSCOPY/DECOMPRESSION Right 12/01/2019 ARTHROSCOPY SHOULDER SUBACROMIAL DECOMPRESSION performed by Judith Condon DO at OR [facility] Review of patient's allergies indicates: Allergen Reactions Ceclor [Cefaclor] Unknown As child Jardiance [Empagliflozin] Other (Please comment) DKA with hospitalization Family History Problem Relation Age of Onset Diabetes Mother Endocrine Disorder Mother Dyslipidemia Hypertension Mother Hypertension Father COPD Father age 55 Arthritis Sister No Known Problems Brother Diabetes Aunt (Unspecified) Diabetes Uncle (Unspecified) Diabetes Grandmother (Maternal) Diabetes Grandmother (Paternal) Family Status Relation Status Mo Alive Fa Sis Alive Bro Alive AUNT (Not Specified) UNCLE (Not Specified) MGMA (Not Specified) PGMA (Not Specified) Social History Socioeconomic History Marital status: Spouse name: Esperanza Number of children: Not on file Years of education: 14 Highest education level: Not on file Occupational History Occupation: Student Employer: [employer] Tobacco Use Smoking status: Every Day Packs/day: 2.00 Years: 33.00 Pack years: 66.00 Types: Cigarettes Smokeless tobacco: Never Tobacco comments: 01/27/23 currently smoking 10-15 cig/day Vaping Use Vaping Use: Never used Substance and Sexual Activity Alcohol use: Not Currently Comment: 1 beer in the past two years Drug use: Not Currently Types: Marijuana Comment: smoked over 1-2 years ago (approx 2019) Sexual activity: Yes Partners: Female Other Topics Concern Service No Blood Transfusions No Caffeine Concern No Occupational Exposure No Hobby Hazards No Sleep Concern No Stress Concern No Weight Concern Yes Special Diet Yes Comment: diabetic diet Back Care Yes Exercise Yes Comment: some walking Bike Helmet Not Asked Seat Belt No Self-Exams Not Asked Social History Narrative 1 dog in his home. No mold. 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 Negative for appetite change, chills, diaphoresis, fever and unexpected weight change. HENT: Positive for congestion (mild). Negative for ear pain, postnasal drip, rhinorrhea, sinus pressure, sinus pain, sore throat and tinnitus. Eyes: Negative for visual disturbance. Respiratory: Positive for cough (mild) and chest tightness (mild). Negative for wheezing. Shortnessof breath: better. Cardiovascular: Negative for chest pain, palpitations and leg swelling. Gastrointestinal: Negative for abdominal distention, abdominal pain, constipation, diarrhea, nauseaand vomiting. Endocrine: Negative. Genitourinary: Negative for hematuria. Musculoskeletal: Negative for gait problem. Skin: Negative for color change and pallor. Allergic/Immunologic: Positive for environmental allergies. Neurological: Negative for dizziness, weakness, light-headedness and headaches. Hematological: Negative for adenopathy. Psychiatric/Behavioral: Positive for sleep disturbance. Negative for agitation and behavioral problems. Objective BP 124/70 | Pulse 112 | Temp 36.3 C (97.4 F) | Resp 20 | Wt (!) 147.7 kg (325 lb 9.6 oz) | [id number]% | BMI 41.25 kg/m | BSA 2.79 m Physical Exam Constitutional: General: He is not in acute distress. Appearance: Normal appearance. He is obese. He is not ill-appearing, toxic- appearing or diaphoretic. HENT: Head: Normocephalic and atraumatic. Nose: Nose normal. Eyes: Extraocular Movements: Extraocular movements intact. Conjunctiva/sclera: Conjunctivae normal. Pupils: Pupils are equal, round, and reactive to light. Cardiovascular: Rate and Rhythm: Regular rhythm. Tachycardia present. Pulses: Normal pulses. Heart sounds: No murmur heard. Comments: HR 90s Pulmonary: Effort: Pulmonary effort is normal. No respiratory distress. Breath sounds: No stridor. No wheezing, rhonchi or rales. Comments: B/L mildly decreased BS Chest: Chest wall: No tenderness. Musculoskeletal: Right lower leg: No edema. Left lower leg: No edema. Neurological: General: No focal deficit present. Mental Status: He is alert and oriented to person, place, and time. Cranial Nerves: No cranial nerve deficit. Psychiatric: Behavior: Behavior normal. ASSESSMENT/PLAN: Rhinovirus infection (Primary) Bronchitis, complicated Tobacco use disorder Chronic respiratory failure with hypercapnia (HCC) COPD, moderate (HCC) Diabetic polyneuropathy associated with type 2 diabetes mellitus (HCC) Type 2 diabetes mellitus with hemoglobin A1c goal of less than 7.0% ([facility]) Restrictive lung disease secondary to obesity Obstructive sleep apnea History of DVT (deep vein thrombosis) Body mass index (BMI) of 40.0 to 44.9 in adult (HCC) ok to take only doxycycline at this time Stop or cut down smoking Keep symbicort bid And albuterol prn F/u with pulmo F/u MTM for DM Diet change Cont all current meds Veronica Goodrich MD documented in this encounter Nursing Notes * Tanesha Goldsmith LPN - 05/25/2023 1:39 PM EDT ER follow up. Was diagnosed with pneumonia. States that he is feeling better. States he does still every once in a while get a slight discomfort in his chest documented in this encounter Plan of Treatment Upcoming Encounters Date Type Specialty Care Team Description 06/03/2023 Procedure Only [facility] [place] [address] 06/08/2023 Office Visit Gastroenterology Alondra Cleaning CRNP [address] [place] [address] 06/18/2023 Telemedicine Pharmacy [facility] [address] [place] [address] 07/09/2023 Office Visit Family Medicine Velasquez Valencia MD [address] [place] [address] 09/30/2023 Procedure Only Endoscopy Janak Aldrich MD [address] [place] [address] Health Maintenance Due Date Last Done Comments [...] this encounter Medical Devices Implanted Type Area Software Architect Device Identifier Shelf Expiration Date Model / Serial / Lot Suture Put[place] Dbl Load 5.5mm - [id number] Implanted:Qty: 1 on 12/01/2019 by Judith Condon, at OR [facility] Right: Shoulder [employer] 09/16/2021 [id number] / / [id number] documented as of this encounter Visit Diagnoses Diagnosis Rhinovirus infection- Primary Rhinovirus infection in conditions classified elsewhere and of unspecified site Bronchitis, complicated Bronchitis, not specified as acute or chronic Tobacco use disorder Chronic respiratory failure with hypercapnia (HCC) Chronic respiratory failure COPD, moderate (HCC) Chronic airway obstruction, not elsewhere classified Diabetic polyneuropathy associated with type 2 diabetes mellitus (HCC) Type 2 diabetes mellitus with hemoglobin A1c goal of less than 7.0% (HCC) Restrictive lung disease secondary to obesity Other diseases of lung, not elsewhere classified Obstructive sleep apnea Obstructive sleep apnea (adult) (pediatric) History of DVT (deep vein thrombosis) Personal history of venous thrombosis and embolism Body mass index (BMI) of 40.0 to 44.9 in adult (HCC) documented in this encounter Advance Directives [...] the patient have Health Care Power of Smoking Pipes Cleaner? No Care Teams Casing Grader Relationship Specialty Start Date End Date Velasquez Valencia MD [address] [place], [place] [id number] PCP - General Family Medicine 09/09/22 documented as of this encounter"
--- OUTSIDE RECORDS SUMMARY | 2023-09-19 09:28 | External Medical Summary | Summary of Care ---
Author Name Unknown Organization [facility] Address [address] [place] [address] Phone [phone] Care Team Providers Care Foam Machine Operator Name Role Phone Tati Polo MD Primary Care Provider +1- [phone] Reason for Visit * Reason Onset Date Comments Medication Refill 05/10/2023 Encounter Details Date Type Department Care Team Description 05/10/2023 Refill [facility] [address] [place] [address] Tati Polo MD [address] [place] [address] Neuropathy; Lumbar disc herniation Allergies Active Allergy Reactions Severity Noted Date Comments Cefaclor Unknown 07/26/2018 As child Empagliflozin Other (Please comment) 05/16/2021 DKA with hospitalization documented as of this encounter (statuses as of 05/10/2023) Medications Medication Sig Dispensed Refills Start Date End Date Status Diclofenac Sodium (VOLTAREN) 1 % gel Place 2 g topically on the skin 2 times a day. To affected area as directed. 100 g 5 0 Active docusate sodium (RA COL-RITE) 100 MG Capsule Take 1 Cap by mouth 2 times a day as needed for Constipation. 60 Cap 3 0 Active Additional Information Patient not taking.Reported on 02/25/2023 Advil Dual Action 125-250 MG Oral Tablet (Ibuprofen-Acetam inophen) Take 3 Tablets by mouth 2 times a day. 0 Active Droplet Pen [place] 31G X 5 MM (Insulin Pen Needle)Indication s:Type 2 diabetes mellitus with hemoglobin A1c goal of less than 7.0% (HCC) use 1 PEN NEEDLE to inject MEDICATION subcutaneously four times a day 400 Each 3 2 Active Losartan Potassium 50 MG Oral Tablet [...] WITHDRAWAL SYMPTOMS 54 g 3 3 Active metFORMIN HCl 500 MG Oral Tablet (Glucophage) TAKE 2 TABLETS BY MOUTH IN THE MORNING AND IN THE EVENING 360 Tablet 3 3 Active Metoprolol Succinate ER 50 [...] in the evening 60 mL 3 3 Active NovoLOG FlexPen 100 UNIT/ML Subcutaneous Solution Pen-injector (insulin aspart)Indication s:Type 2 diabetes mellitus with hemoglobin A1c goal of less than 7.0% ([facility]) inject 15-16 units subcutaneously three times a day with meals 45 mL 3 3 Active Famotidine 20 MG Oral Tablet (Pepcid) Take 1 Tablet by mouth every night at bedtime. 90 Tablet 3 3 Active Mounjaro 2.5 MG/0.5ML Subcutaneous Solution Pen-injector (Tirzepatide)Yanet cations:Type 2 diabetes mellitus with hemoglobin A1c goal of less than 7.0% ([facility]) Inject 2.5 mg under the skin once a week. Stop victoza 2 mL 0 3 04/22/20 24 Active Gabapentin 100 MG Oral Capsule (Neurontin)Indica [...] MEALS ) 270 Tablet 1 3 Active Dicyclomine HCl 10 MG Oral Capsule (Bentyl) take 1 capsule by mouth four times a day 360 Capsule 3 2 05/10/20 23 Discontinu ed(Refill) Gabapentin 100 MG Oral Capsule (Neurontin)Indica tions:Neuropathy take 1 capsule by mouth every morning and 2 capsules by mouth at bedtime 270 Capsule 1 3 05/10/20 23 Discontinu ed(Refill) Cyclobenzaprine HCl 10 MG Oral Tablet (Flexeril)Indicat ions:Lumbar disc herniation take 1 tablet by mouth at bedtime ONLY if needed 30 Tablet 1 3 05/10/20 23 Discontinu ed(Refill) Metoclopramide HCl 10 MG Oral Tablet (Reglan) take 1 tablet by mouth three times a day ( 30 MINUTES before MEALS ) 270 Tablet 1 3 05/10/20 23 Discontinu ed(Refill) Hospital, Clinic, or Other Facility Administered Medication Ordered Dose Route Frequency Start Date End Date Status Albuterol Sulfate (Proventil) (5 MG/ML) 0.5% *conc* inhalation solution 2.5 mgIndications:Chronic respiratory failure with hypercapnia (HCC) 2.5 mg NEBULIZER PRN 12/01/2022 12/01/2023 Ac tive documented as of this encounter (statuses as of 05/10/2023) Active Problems Problem Noted Date Neuropathy 02/24/2023 [...] as of this encounter (statuses as of 05/10/2023) Resolved Problems Problem Noted Date Resolved Date [...] as of this encounter (statuses as of 05/10/2023) Immunizations Name Administration Dates Next Due COVID-19 mRNA, LNP-s, No Pre serve, 2-Dose Series ([employer]) 10/21/2021,03/01/2021,02/07/2021 H1N1 2009 Influenza, IM 11/04/2009 Pneumococcal [...] Telephone Encounter - Tati Polo MD - 05/10/2023 2:09 PM EDTSigned Prescriptions: Disp Refills Gabapentin 100 MG Oral Capsule (Neurontin) 270 Ca*1 Sig: take 1 capsule by mouth every morning and 2 capsules by mouth at bedtimeAuthorizing Provider: TATI POLO Cyclobenzaprine HCl 10 MG Oral Tablet (Fle*30 Tab*1 Sig: take 1 tablet by mouth at bedtime ONLY if neededAuthorizing Provider: TATI POLO Dicyclomine HCl 10 MG Oral Capsule (Bentyl)360 Ca*3 Sig: take 1 capsule by mouth four times a dayAuthorizing Provider: TATI POLO Metoclopramide HCl 10 MG Oral Tablet (Regl*270 Ta*1 Sig: take 1 tablet by mouth three times a day ( 30 MINUTES before MEALS )Authorizing Provider: TATI POLO * Telephone Encounter - Raya Sujata [facility] - 05/10/2023 10:40 AM EDT Did you pend patient's preferred pharmacy and medication before forwarding?yes Pharmacy: [id number] [facility] Pending Prescriptions: Disp Refills Gabapentin 100 MG Oral Capsule (Neurontin)270 Ca*1 Sig: take 1 capsule by mouth every morning and 2 capsules by mouth at bedtime Cyclobenzaprine HCl 10 MG Oral Tablet (Fl*30 Tab*1 Dicyclomine HCl 10 MG Oral Capsule (Benty*360 Ca*3 Sig: take 1 capsule by mouth four times a day Metoclopramide HCl 10 MG Oral Tablet (Reg*270 Ta*1 Sig: take 1 tablet by mouth three times a day ( 30 MINUTES before MEALS ) Last Visit: 02/24/2023 (in office), Visit date not found (telemedicine) Next Visit: 07/09/2023 If no future appointments scheduled, and last appointment is greater than a year ago, please schedule patient for a follow-up appointment Last date the medication was ordered: 02/12/2023,06/10/2022,01/11/2023,02/18/2023 Is this request for a controlled substance?No Urine Drug Screen:No results found. However, due to the size of the patient record, not all encounters were searched. Please check Results Review for a complete set of results. Patient Phone Numbers Labs: Lab Results Component Value Date/Time CREAT 0.96 02/07/2023 12:00 AM CREAT 0.8 11/25/2019 08:53 AM POTASSIUM 4.2 02/07/2023 12:00 AM POTASSIUM 4.5 11/25/2019 08:53 AM TSH 1.24 12/05/2021 12:12 PM TSH 0.698 06/30/2018 12:00 AM LDLCALC 126 01/05/2023 11:33 AM LDLCALC 108 01/08/2011 02:50 PM LDLDIRECT 133 (H) 04/12/2007 03:04 PM ALT 85 (H) 01/05/2023 11:33 AM ALT 37 11/25/2019 08:53 AM HGBA1C 7.8 (H) 01/05/2023 11:33 AM HGBA1C 9.2 (H) 09/16/2020 01:55 PM documented in this encounter Plan of Treatment Upcoming Encounters Date Type Specialty Care Team Description 06/03/2023 Procedure Only Endoscopy Kenneth Butterfield MD [address] [place] [address] 06/08/2023 Office Visit Gastroenterology Alondra Cleaning CRNP [address] [place] [address] 06/18/2023 Telemedicine [facility] [address] [place] [address] 07/09/2023 Office Visit Family Medicine Tati Polo MD [address] [place] [address] 09/30/2023 Procedure Only Endoscopy Janak Aldrich MD [address] [place] [address] Health Maintenance Due Date Last Done Comments [...] this encounter Medical Devices Implanted Type Area Poultry Farm Laborer Device Identifier Shelf Expiration Date Model / Serial / Lot Suture [place] Dbl Load 5.5mm - [id number] Implanted:Qty: 1 on 12/01/2019 by Judith Condon, at OR [facility] Right: Shoulder [employer] 09/16/2021 [id number] -[id number] / / [id number] documented as of this encounter Visit Diagnoses Diagnosis Neuropathy Mononeuritis of unspecified site Lumbar disc herniation Displacement of lumbar intervertebral [...] the patient have Health Care Power of [place] Analyst? No Care Teams Foam Machine Operator Relationship Specialty Start Date End Date Tati Polo MD [address] [place] [address] PCP - General Family Medicine 09/09/22 documented as of this encounter
--- OUTSIDE RECORDS SUMMARY | 2023-09-19 09:28 | External Medical Summary | Summary of Care ---
Author Name Unknown Organization [facility] Address [address] [place] [address] Phone [phone] Care Team Providers Care Crm Campaign Manager Name Role Phone Velasquez Valencia MD Primary Care Provider +1- [phone] Reason for Visit * Reason Onset Date Comments Medication Discussion 05/28/2023 Encounter Details Date Type Department Care Team Description 05/28/2023 Telephone Pharmacy, [address] [address] Gisel Butler, [facility] [address] [place] [address] Medication Discussion Allergies Active Allergy Reactions Severity Noted Date Comments Cefaclor Unknown 07/26/2018 As child Empagliflozin Other (Please comment) 05/16/2021 DKA with hospitalization documented as of this encounter (statuses as of 05/28/2023) Medications Medication Sig Dispensed Refills Start Date [...] times a day. 0 Active Droplet Pen [place] 31G X 5 MM (Insulin Pen Needle)Indicatio ns:Type 2 diabetes mellitus with hemoglobin A1c goal of less than 7.0% ([facility]) use 1 PEN NEEDLE to inject MEDICATION [...] hemoglobin A1c goal of less than 7.0% ([facility]) Inject 25 units in the morning and 38 units in the evening 60 mL 3 3 Active NovoLOG FlexPen 100 UNIT/ML Subcutaneous Solution Pen-injector (insulin aspart)Indicatio ns:Type 2 diabetes mellitus with hemoglobin A1c [...] Active Mounjaro 7.5 MG/0.5ML Subcutaneous Solution Pen-injector (Tirzepatide)Ind ications:Type 2 diabetes mellitus with hemoglobin A1c goal of less than 7.0% (HCC) Inject 7.5 mg under the skin once a week. Dose increase 2 mL 0 3 05/27/20 24 Active Mounjaro 5 MG/0.5ML Subcutaneous Solution Pen-injector (Tirzepatide)Ind ications:Type 2 diabetes mellitus with hemoglobin A1c goal of less than 7.0% (HCC) Inject 5 mg under the skin once a week. Dose increase 2 mL 0 3 05/28/20 23 Discontinued Hospital, Clinic, or Other Facility Administered Medication Ordered Dose Route Frequency Start Date End Date Status Albuterol Sulfate (Proventil) (5 MG/ML) 0.5% *conc* inhalation solution 2.5 mgIndications:Chronic respiratory failure with hypercapnia (HCC) 2.5 mg NEBULIZER PRN 12/01/2022 12/01/2023 Ac tive documented as of this encounter (statuses as of 05/28/2023) Active Problems Problem Noted Date COPD, moderate [...] as of this encounter (statuses as of 05/28/2023) Resolved Problems Problem Noted Date Resolved Date [...] as of this encounter (statuses as of 05/28/2023) Immunizations Name Administration Dates Next Due COVID-19 [...] Telephone Encounter - Gisel Butler RPh - 05/28/2023 8:18 AM EDT MTM has not heard from patient about any issues with Mounjaro. Will send in next dose. Metformin HCL 500mg, 2 tabs BID Lantus 25units AM [id number] Novolog 16 units with meals INC Mounjaro 7.5 mg once weekly x 4 weeks, increase as tolerated GFR >90 as of01/05/2023 Gisel Butler, BarrieD Clinical Pharmacist Medication Therapy Disease Management 05/28/2023, 8:18 AM documented in this encounter Plan of Treatment Upcoming Encounters Date Type Specialty Care Team Description 06/03/2023 Procedure Only Endoscopy Kenneth Butterfield MD [address] [place] [address] 06/08/2023 Office Visit Gastroenterology Alondra Cleaning CRNP [address] [place] [address] 06/18/2023 Telemedicine Pharmacy [facility] [address] [place] [address] 07/09/2023 Office Visit Family Medicine Velasquez Valencia MD [address] [place] [address] 09/30/2023 Procedure Only Endoscopy Janak Aldrich MD [address] [place] [address] Health Maintenance Due Date Last Done Comments [...] exists DISCUSS TOBACCO CESSATION (REFER TO SMARTSET #3329) 10/16/2023 10/16/2022 Albumin/Creatinine Ratio 01/06/2024 023, 09/01/2021, [...] this encounter Medical Devices Implanted Type Area Web Ui Software Engineer Device Identifier Shelf Expiration Date Model / Serial / Lot Suture [place] Dbl Load 5.5mm - [id number] Implanted:Qty: 1 on 12/01/2019 by Judith Condon DO at OR [facility] Right: Shoulder [employer] 09/16/2021 [id number]-2323BCT -2 / / [id number] documented as of this encounter Visit Diagnoses Diagnosis Type 2 diabetes mellitus with hemoglobin A1c goal of less than 7.0% ([facility])- Primary documented in this encounter Advance Directives [...] the patient have Health Care Power of Investigative Agent? No Care Teams Crm Campaign Manager Relationship Specialty Start Date End Date Velasquez Valencia MD [address] [place] [address] PCP - General Family Medicine 09/09/22 documented as of this encounter
--- OUTSIDE RECORDS SUMMARY | 2023-09-19 09:28 | External Medical Summary | Summary of Care ---
Author Name Unknown Organization [facility] Address [address] [place] [address] Phone [phone] Care Team Providers Care Carton Machine Operator Name Role Phone Velasquez Valencia MD Primary Care Provider +1- [phone] Reason for Visit * Reason Onset Date Comments Medication Discussion 07/08/2023 Encounter Details Date Type Department Care Team Description 07/08/2023 Telephone Pharmacy, [address] [address] Gisel Butler, [facility] [address] [place] [address] Medication Discussion Allergies Active Allergy Reactions Severity Noted Date Comments Cefaclor Unknown 07/26/2018 As child Empagliflozin Other (Please comment) 05/16/2021 DKA with hospitalization documented as of this encounter (statuses as of 07/08/2023) Medications Medication Sig Dispensed Refills Start Date [...] 2 mL 0 3 07/07/20 24 Active Mounjaro 7.5 MG/0.5ML Subcutaneous Solution Pen-injector (Tirzepatide)Ind ications:Type 2 diabetes mellitus with hemoglobin A1c goal of less than 7.0% (HCC) Inject 7.5 mg under the skin once a week. Dose increase 2 mL 0 3 07/08/20 23 Discontinued Hospital, Clinic, or Other Facility Administered Medication Ordered Dose Route Frequency Start Date End Date Status Albuterol Sulfate (Proventil) (5 MG/ML) 0.5% *conc* inhalation solution 2.5 mgIndications:Chronic respiratory failure with hypercapnia (HCC) 2.5 mg NEBULIZER PRN 12/01/2022 12/01/2023 Ac tive documented as of this encounter (statuses as of 07/08/2023) Active Problems Problem Noted Date COPD, moderate [...] as of this encounter (statuses as of 07/08/2023) Resolved Problems Problem Noted Date Resolved Date [...] as of this encounter (statuses as of 07/08/2023) Immunizations Name Administration Dates Next Due COVID-19 mRNA, LNP-s, No Pre serve, 2-Dose Series ([employer]) 10/21/2021,03/01/2021,02/07/2021 H1N1 2009 Influenza, IM 11/04/2009 Pneumococcal [...] Telephone Encounter - Gisel Butler RPh - 07/08/2023 8:33 AM EDT MTM has not heard from patient about any issues with Mounjaro. Will send in next dose. Diabetic Medications: Metformin HCL 500mg, 2 tabs BID Lantus 28 units AM and 40 units PM Novolog 16 units with meals INC Mounjaro 10 mg once weekly x 4 weeks, increase as tolerated GFR >90 as of 01/05/2023 Gisel Butler, PharmD Clinical Pharmacist Medication Therapy Disease Management 07/08/2023, 8:34 AM documented in this encounter Plan of Treatment Upcoming Encounters Date Type Specialty Care Team Description 07/09/2023 Office Visit Family Medicine Velasquez Valencia MD [address] [place] [facility] [place] [address] 08/13/2023 Telemedicine Pharmacy [facility] [address] [place] [address] 09/30/2023 Procedure Only Endoscopy Janak Aldrich MD [address] [place] [address] Health Maintenance Due Date Last Done Comments [...] 08/21/2008 (Unable to do), Additional history exists Diabetic Foot Exam 03/07/2022 03/07/2021, 0 11/27/2019, 01/13/2018, Additional history [...] this encounter Medical Devices Implanted Type Area Sewing Department Supervisor Device Identifier Shelf Expiration Date Model / Serial / Lot Suture [place] Dbl Load 5.5mm - [id number] Implanted:Qty: 1 on 12/01/2019 by Judith Condon, at OR [facility] Right: Shoulder [employer] 09/16/2021 AR-2323BCT -2 / / [id number] documented as of this encounter Visit Diagnoses Diagnosis Type 2 diabetes mellitus with hemoglobin A1c goal of less than 7.0% ([facility])- Primary documented in this encounter Advance Directives [...] the patient have Health Care Power of Hook Tender? No Care Teams Carton Machine Operator Relationship Specialty Start Date End Date Velasquez Valencia MD [address] [place], [place] [id number] PCP - General Family Medicine 09/09/22 documented as of this encounter
--- OUTSIDE RECORDS SUMMARY | 2023-09-19 09:28 | External Medical Summary | Summary of Care ---
Author Name Unknown Organization [facility] Address [address] [place] [address] Phone [phone] Care Team Providers Care Case Monitor Name Role Phone Velasquez Valnecia MD Primary Care Provider +1- [phone] Reason for Visit * Reason Comments eRx-Medication Refill Encounter Details Date Type Department Care Team Description 06/22/2023 Refill Pharmacy, [address] [address] Velasquez Valencia MD [address] [place] [address] Type 2 diabetes mellitus with hemoglobin A1c goal of less than 7.0% ([facility]) Allergies Active Allergy Reactions Severity Noted Date Comments Cefaclor Unknown 07/26/2018 As child Empagliflozin Other (Please comment) 05/16/2021 DKA with hospitalization documented as of this encounter (statuses as of 06/22/2023) Medications Medication Sig Dispensed Refills Start Date [...] 1 Tablet daily. 0 05/23/2023 A ctive Mounjaro 7.5 MG/0.5ML Subcutaneous Solution Pen-injector (Tirzepatide)Indic ations:Type 2 diabetes mellitus with hemoglobin A1c goal of less than 7.0% (HCC) Inject 7.5 mg under the skin once a week. Dose increase 2 mL 0 05/28/2023 Active metFORMIN HCl 500 MG Oral Tablet [...] the evening 75 mL 3 06/18/2023 Active NovoLOG FlexPen 100 UNIT/ML Subcutaneous Solution Pen-injector (insulin aspart)Indications :Type 2 diabetes mellitus with hemoglobin A1c goal of less than 7.0% (HCC) inject 16 units subcutaneously three times a day with meals 45 mL 3 06/18/2023 Active Droplet Pen [place] 31G X 5 MM (Insulin Pen Needle)Indications :Type 2 diabetes mellitus with hemoglobin A1c goal of less than 7.0% (HCC) Use to inject insulin 4 times daily 400 Each 3 06/18/2023 Active Hospital, Clinic, or Other Facility Administered Medication Ordered Dose Route Frequency Start Date End Date Status Albuterol Sulfate (Proventil) (5 MG/ML) 0.5% *conc* inhalation solution 2.5 mgIndications:Chronic respiratory failure with hypercapnia (HCC) 2.5 mg NEBULIZER PRN 12/01/2022 12/01/2023 Ac tive documented as of this encounter (statuses as of 06/22/2023) Active Problems Problem Noted Date COPD, moderate [...] as of this encounter (statuses as of 06/22/2023) Resolved Problems Problem Noted Date Resolved Date [...] as of this encounter (statuses as of 06/22/2023) Immunizations Name Administration Dates Next Due COVID-19 [...] Telephone Encounter - Gisel Butler RPh - 06/22/2023 8:37 AM EDT Refused Prescriptions: Disp Refills Mounjaro 7.5 MG/0.5ML Subcutaneous Solutio*2 mL 0 Sig: instill 0.5 milliliters (7.5 mg) subcutaneously once weeklyRefused By: GISEL BUTLEReasaleks for Refusal: Too soon documented in this encounter Plan of Treatment Upcoming Encounters Date Type Specialty Care Team Description 07/09/2023 Office Visit Family Medicine Velasquez Valencia MD [address] [facility] [place] [address] 08/13/2023 [facility]medicine Pharmacy [facility] [address] [facility] [address] 09/30/2023 Procedure Only Endoscopy Janak Aldrich MD [address] [place] [address] Health Maintenance Due Date Last Done Comments [...] this encounter Medical Devices Implanted Type Area Candle Cutter Device Identifier Shelf Expiration Date Model / Serial / Lot Suture [place] Dbl Load 5.5mm - [id number] Implanted:Qty: 1 on 12/01/2019 by Judith Condon DO at OR [facility] Right: Shoulder [employer] 09/16/2021 AR-2323BCT -2 / / [id number] documented as of this encounter Visit Diagnoses Diagnosis Type 2 diabetes mellitus with hemoglobin A1c goal of less than 7.0% ([facility]) documented in this encounter Advance Directives Latest [...] the patient have Health Care Power of Software Development Test Engineer? No Care Teams Case Monitor Relationship Specialty Start Date End Date Velasquez Valencia MD [address] [place] [address] PCP - General Family Medicine 09/09/22 documented as of this encounter
--- OUTSIDE RECORDS SUMMARY | 2023-09-19 09:28 | External Medical Summary | Summary of Care ---
Author Name Unknown Organization [facility] Address [address] [facility] [address] Phone [phone] Care Team Providers Care Slicing Machine Operator Name Role Phone Velasquez Valencia MD Primary Care Provider +1- [phone] Reason for Visit * Reason Onset Date Comments Test Results 05/05/2023 Encounter Details Date Type Department Care Team Description 05/05/2023 Telephone Gastroenterology, [facility] [address] [place] [address] Aruna Guzman CRNP [address] [place] [address] Test Results Allergies Active Allergy Reactions Severity [...] times a day. 0 Active Droplet Pen [place] 31G X 5 MM (Insulin Pen Needle)Indications [...] Kenneth Butterfield MD [address] [place] [address] 06/08/2023 Office Visit Gastroenterology Alondra Cleaning CRNP [address] [place] [address] 06/18/2023 Telemedicine Pharmacy [facility] [address] [place] [address] 07/09/2023 Office Visit Family Medicine Velasquez Valencia MD [address] [place] [address] 09/30/2023 Procedure Only Endoscopy Janak Aldrich MD [address] [place] [address] Health Maintenance Due Date Last Done Comments [...] this encounter Medical Devices Implanted Type Area Information Technology Professor Device Identifier Shelf Expiration Date Model / Serial / Lot Suture [place] Dbl Load 5.5mm - [id number] Implanted:Qty: 1 on 12/01/2019 by Judith Condon, at OR [facility] Right: Shoulder [employer] 09/16/2021 AR-2323BCT -2 / / [id number] documented as of this encounter Advance Directives [...] the patient have Health Care Power of Family Service Aide? No Care Teams Slicing Machine Operator Relationship Specialty Start Date End Date Velasquez Valencia MD [address] [place] [address] PCP - General Family Medicine 09/09/22 documented as of this encounter
--- OUTSIDE RECORDS SUMMARY | 2023-09-19 09:28 | External Medical Summary | Summary of Care ---
Author Name Unknown Organization [facility] Address [address] [place] [address] Phone [phone] Care Team Providers Care Disease Intervention Specialist Name Role Phone Velasquez Valencia MD Primary Care Provider +1- [phone] Reason for Visit * Reason Onset Date Comments Pre Cert/Prior Auth 04/30/2023 mounjaro FYI 04/30/2023 Encounter Details Date Type Department Care Team Description 04/30/2023 [facility]phone Pharm[facility], [address] [address] [facility] [address] [place] [address] Pre Cert/Prior Auth (mounjaro); FYI Allergies Active Allergy Reactions Severity Noted Date Comments Cefaclor Unknown 07/26/2018 As child Empagliflozin Other (Please comment) 05/16/2021 DKA with hospitalization documented as of this encounter (statuses as of 04/30/2023) Medications Medication Sig Dispensed Refills Start Date [...] times a day. 0 Active Droplet Pen [place] 31G X 5 MM (Insulin Pen Needle)Indications [...] as of this encounter (statuses as of 04/30/2023) Active Problems Problem Noted Date Neuropathy 02/24/2023 [...] as of this encounter (statuses as of 04/30/2023) Resolved Problems Problem Noted Date Resolved Date [...] as of this encounter (statuses as of 04/30/2023) Immunizations Name Administration Dates Next Due COVID-19 [...] encounter Miscellaneous Notes * Telephone Encounter - Shelley Vieira CPhT - 04/30/2023 1:05 PM EDT Patients insurance would like to inform the office that Mounjaro 2.5 MG/0.5ML Subcutaneous SolutionPen-injector (Tirzepatide) is approved until open ended . Patient and pharmacy made aware by [facility]. Information will be faxed to the office. Thank you, Melly Vieira Senior Principal I [facility] ([facility]) (Formerly Telepharmacy) 04/30/2023,1:05 PM * Telephone Encounter - Gisel Butler RPh - 04/30/2023 12:49 PM EDT Received M request to submit PA for patient's mounjaro. Patient has [facility] Family, submitted PA via prompt [place] Prior Authorization request details: Prior Auth ([facility]) ID: [id number] Drug/Service Name: MOUNJARO 2.5 MG/0.5 ML PEN Patient: BRY BARAJAS Date Requested: 04/30/2023 12:47:36 PM MemberID: [id number] : 1975 Gisel Butler PharmD Clinical Pharmacist Medication Therapy Disease Management 04/30/2023, 12:50 PM documented in this encounter Plan of Treatment Upcoming Encounters Date Type Specialty Care Team Description 05/04/2023 Imaging Radiology 05/04/2023 Imaging Radiology 05/04/2023 Imaging Radiology 05/04/2023 Imaging Radiology 06/03/2023 Procedure Only Endoscopy Kenneth Butterfield MD [address] [place] [address] 06/08/2023 Office Visit Gastroenterology Alondra Cleaning CRNP [address] [place] [address] 06/18/2023 Telemedicine Pharmacy [facility] [address] [place] [address] 07/09/2023 Office Visit Family Medicine Velasquez Valencia MD [address] [place] [address] 09/30/2023 Procedure Only Endoscopy Janak Aldrich MD [address] [place] [address] Health Maintenance Due Date Last Done Comments [...] this encounter Medical Devices Implanted Type Area Emergency Room Physician Device Identifier Shelf Expiration Date Model / Serial / Lot Suture [place] Dbl Load 5.5mm - [id number] Implanted:Qty: 1 on 12/01/2019 by Judith Condon, at OR [facility] Right: Shoulder [employer] 09/16/2021 [id number] -2 / / [id number] documented as of this encounter Visit Diagnoses Diagnosis Type 2 diabetes mellitus with hemoglobin A1c goal of less than 7.0% ([facility] Primary documented in this encounter Advance [...] the patient have Health Care Power of Buffing Turner And Counter? No Care Teams Disease Intervention Specialist Relationship Specialty Start Date End Date Velasquez Valencia MD [address] [place], [place] [phone] PCP - General Family Medicine 09/09/22 documented as of this encounter
--- OUTSIDE RECORDS SUMMARY | 2023-09-19 09:28 | External Medical Summary | Summary of Care ---
Author Name Unknown Organization [facility] Address [address] [place] [address] Phone [phone] Care Team Providers Care Knuckle Strap Sewer Name Role Phone Velasquez Valencia MD Primary Care Provider +1- [phone] Reason for Visit * Reason Onset Date Comments Medication Discussion 05/12/2023 Encounter Details Date Type Department Care Team Description 05/12/2023 Telephone Pharmacy, [address] [address] Gisel Butler, [facility] [address] [place] [address] Medication Discussion Allergies Active Allergy Reactions Severity Noted Date Comments Cefaclor Unknown 07/26/2018 As child Empagliflozin Other (Please comment) 05/16/2021 DKA with hospitalization documented as of this encounter (statuses as of 05/13/2023) Medications Medication Sig Dispensed Refills Start Date [...] times a day. 0 Active Droplet Pen [place] 31G X 5 MM (Insulin Pen Needle)Indicatio [...] ) 270 Tablet 1 3 Active Mounjaro 5 MG/0.5ML Subcutaneous Solution Pen-injector (Tirzepatide)Ind ications:Type 2 diabetes mellitus with hemoglobin A1c goal of less than 7.0% (HCC) Inject 5 mg under the skin once a week. Dose increase 2 mL 0 3 05/11/20 24 Active Mounjaro 2.5 MG/0.5ML Subcutaneous Solution Pen-injector (Tirzepatide)Ind ications:Type 2 diabetes mellitus with hemoglobin A1c goal of less than 7.0% (HCC) Inject 2.5 mg under the skin once a week. Stop victoza 2 mL 0 3 05/12/20 23 Discontinued Hospital, Clinic, or Other Facility Administered Medication Ordered Dose Route Frequency Start Date End Date Status Albuterol Sulfate (Proventil) (5 MG/ML) 0.5% *conc* inhalation solution 2.5 mgIndications:Chronic respiratory failure with hypercapnia (HCC) 2.5 mg NEBULIZER PRN 12/01/2022 12/01/2023 Ac tive documented as of this encounter (statuses as of 05/13/2023) Active Problems Problem Noted Date Neuropathy 02/24/2023 [...] as of this encounter (statuses as of 05/13/2023) Resolved Problems Problem Noted Date Resolved Date [...] as of this encounter (statuses as of 05/13/2023) Immunizations Name Administration Dates Next Due COVID-19 [...] Telephone Encounter - Gisel Butler RPh - 05/12/2023 8:58 AM EDT MTM has not heard from patient about any issues with Mounjaro. Will send in next dose. Metformin HCL 500mg, 2 tabs BID Lantus 25units AM [id number] Novolog 16 units with meals INC Mounjaro 5 mg once weekly x 4 weeks, increase as tolerated GFR >90 as of01/05/2023 Barrie VallesD Clinical Pharmacist Medication Therapy Disease Management 05/12/2023, 8:59 AM documented in this encounter Plan of Treatment Upcoming Encounters Date Type Specialty Care Team Description 06/03/2023 Procedure Only Endoscopy Kenneth Butterfield MD [address] [place] [address] 06/08/2023 Office Visit Gastroenterology Alondra Cleaning CRNP [address] [place] [address] 06/18/2023 Telemedicine Pharmacy [facility] [address] [place] [address] 07/09/2023 Office Visit Family Medicine Velasquez Valencia MD [address] [place] [address] 09/30/2023 Procedure Only Endoscopy Janak Aldrich MD [address] [place] [address] Health Maintenance Due Date Last Done Comments [...] exists DISCUSS TOBACCO CESSATION (REFER TO SMARTSET #7323) 10/16/2023 10/16/2022 Albumin/Creatinine Ratio 01/06/2024 023, 09/01/2021, [...] this encounter Medical Devices Implanted Type Area Real Estate Rep Device Identifier Shelf Expiration Date Model / Serial / Lot Suture [place] Dbl Load 5.5mm - [id number] Implanted:Qty: 1 on 12/01/2019 by Judith Condon, at OR [facility] Right: Shoulder [employer] 09/16/2021 AR-2323BCT -2 / / [id number] documented as of this encounter Visit Diagnoses Diagnosis Type 2 diabetes mellitus with hemoglobin A1c goal of less than 7.0% ([facility])- Primary documented in this encounter Advance [...] the patient have Health Care Power of Aircraft Servicer? No Care Teams Knuckle Strap Sewer Relationship Specialty Start Date End Date Velasquez Valencia MD [address] [place] [address] PCP - General Family Medicine 09/09/22 documented as of this encounter
--- OUTSIDE RECORDS SUMMARY | 2023-09-19 09:28 | External Medical Summary | Summary of Care ---
Author Name Unknown Organization [facility] Address [address] [place] [address] Phone [phone] Care Team Providers Care Mutuel Cashier Name Role Phone Velasquez Valencia MD Primary Care Provider +1- [phone] Reason for Visit * Reason Onset Date Comments Medication Discussion 05/12/2023 Encounter Details Date Type Department Care Team Description 05/12/2023 Telephone Pharmacy, [address] [address] Gisel Butler, [facility] [address] [place] [address] Medication Discussion Allergies Active Allergy Reactions Severity Noted Date Comments Cefaclor Unknown 07/26/2018 As child Empagliflozin Other (Please comment) 05/16/2021 DKA with hospitalization documented as of this encounter (statuses as of 05/12/2023) Medications Medication Sig Dispensed Refills Start Date [...] times a day. 0 Active Droplet Pen [place] 31G X 5 MM (Insulin Pen Needle)Indicatio [...] as of this encounter (statuses as of 05/12/2023) Active Problems Problem Noted Date Neuropathy 02/24/2023 [...] as of this encounter (statuses as of 05/12/2023) Resolved Problems Problem Noted Date Resolved Date [...] as of this encounter (statuses as of 05/12/2023) Immunizations Name Administration Dates Next Due COVID-19 [...] 500mg, 2 tabs BID Lantus 25units AM [id number] Novolog 16 units with meals INC Mounjaro 5 mg once weekly x 4 weeks, increase as tolerated GFR >90 as of01/05/2023 Barrie VallesD Clinical Pharmacist Medication Therapy Disease Management 05/12/2023, 8:59 AM documented in this encounter Plan of Treatment Upcoming Encounters Date Type Specialty Care Team Description 06/03/2023 Procedure Only Endoscopy Kenneth Butterfield MD [address] [place] [address] 06/08/2023 Office Visit Gastroenterology Alondra Cleaning CRNP [address] [place] [address] 06/18/2023 Telemedicine Pharmacy [facility] [address] [place] [address] 07/09/2023 Office Visit Family Medicine Velasquez Valencia MD [address] [place] [address] 09/30/2023 Procedure Only Endoscopy Janak Aldrich MD [address] [place] [address] Health Maintenance Due Date Last Done Comments [...] exists DISCUSS TOBACCO CESSATION (REFER TO SMARTSET #4380) 10/16/2023 10/16/2022 Albumin/Creatinine Ratio 01/06/2024 023, 09/01/2021, [...] this encounter Medical Devices Implanted Type Area Feather Curling Machine Operator Device Identifier Shelf Expiration Date Model / Serial / Lot Suture [place] Dbl Load 5.5mm - [id number] Implanted:Qty: 1 on 12/01/2019 by Judith Condon, at OR [facility] Right: Shoulder [employer] 09/16/2021 AR-2323BCT -2 / / [id number] documented as of this encounter Visit Diagnoses Diagnosis Type 2 diabetes mellitus with hemoglobin A1c goal of less than 7.0% ([facility])- Primary documented in this encounter Advance Directives [...] the patient have Health Care Power of Compensation And Benefits Analyst? No Care Teams Mutuel Cashier Relationship Specialty Start Date End Date Velasquez Valencia MD [address] [place] [address] PCP - General Family Medicine 09/09/22 documented as of this encounter
--- OUTSIDE RECORDS SUMMARY | 2023-09-19 09:29 | External Medical Summary | Summary of Care ---
Author Name Unknown Organization [facility] Address [address] [place] [address] Phone [phone] Care Team Providers Care Slubber Runner Name Role Phone Velasquez Valencia MD Primary Care Provider +1- [phone] Reason for Visit * Reason Comments Dosage Adjustment In Person (Anticoag Cl inic) Diabetes Follow-Up Encounter Details Date Type Department Care Team Description 04/23/2023 Office Visit Pharmacy, [address] [id number] [facility] [address] [place], [place] [phone] Type 2 diabetes mellitus with hemoglobin A1c goal of less than 7.0% ([facility])* Allergies Active Allergy Reactions Severity Noted Date Comments Cefaclor Unknown 07/26/2018 As child Empagliflozin Other (Please comment) 05/16/2021 DKA with hospitalization documented as of this encounter (statuses as of 04/23/2023) Medications Medication Sig Dispensed Refills Start Date [...] times a day. 0 Active Droplet Pen [place] 31G X 5 MM (Insulin Pen Needle)Indication s:Type 2 diabetes mellitus with hemoglobin A1c goal of less than 7.0% (HCC) use 1 PEN NEEDLE to inject MEDICATION subcutaneously four times a day 400 Each 3 2 Active Dicyclomine HCl 10 MG Oral Capsule (Bentyl) take 1 capsule by mouth four times a day 360 Capsule 3 2 Active Losartan Potassium 50 MG Oral Tablet (Cozaar)Indicatio ns:HTN, goal below 140/90 take 1 tablet by mouth once daily 90 Tablet 3 2 Active Famotidine 20 MG Oral Tablet (Pepcid) take 1 tablet by mouth once daily at bedtime 90 Tablet 1 2 Active CPAP every night at bedtime. [...] a day 180 Tablet 1 3 Active Gabapentin 100 MG Oral Capsule (Neurontin)Indica tions:Neuropathy take 1 capsule by mouth every morning and 2 capsules by mouth at bedtime 270 Capsule 1 3 Active oxygen IN GAS Use 2 L/min(Oxygen) as directed at bedtime. 0 Active Budesonide-Formot meeta Fumarate 80-4.5 MCG/ACT Inhalation Aerosol (Symbicort) Inhale 2 Puffs by mouth in the morning and 2 Puffs before bedtime. 10.2 g 12 04/12/202 3 Active Cyclobenzaprine HCl 10 MG Oral Tablet (Flexeril)Indicat ions:Lumbar disc herniation take 1 tablet by mouth at bedtime ONLY if needed 30 Tablet 1 3 Active Metoclopramide HCl 10 MG Oral Tablet (Reglan) take 1 tablet by mouth three times a day ( 30 MINUTES before MEALS ) 270 Tablet 1 3 Active polyethylene glycol 3350 119 gram [...] with meals 45 mL 3 3 Active Mounjaro 2.5 MG/0.5ML Subcutaneous Solution Pen-injector (Tirzepatide)Yanet cations:Type 2 diabetes mellitus with hemoglobin A1c goal of less than 7.0% (HCC) Inject 2.5 mg under the skin once a week. Stop victoza 2 mL 0 3 04/22/20 24 Active Victoza 18 MG/3ML Subcutaneous Solution Pen-injector (Liraglutide)Yanet cations:Type 2 diabetes mellitus with hemoglobin A1c goal of less than 7.0% (HCC) Inject 0.6 mg once daily for 1 week, then increase to 1.2 mg once daily 9 mL 11 3 04/23/20 23 Discontinu ed(Medicat ion/Dose Changed) Hospital, Clinic, or Other Facility Administered Medication Ordered Dose Route Frequency Start Date End Date Status Albuterol Sulfate (Proventil) (5 MG/ML) 0.5% *conc* inhalation solution 2.5 mgIndications:Chronic respiratory failure with hypercapnia (HCC) 2.5 mg NEBULIZER PRN 12/01/2022 12/01/2023 Ac tive documented as of this encounter (statuses as of 04/23/2023) Active Problems Problem Noted Date Neuropathy 02/24/2023 [...] as of this encounter (statuses as of 04/23/2023) Resolved Problems Problem Noted Date Resolved Date [...] as of this encounter (statuses as of 04/23/2023) Immunizations Name Administration Dates Next Due COVID-19 [...] of this encounter Progress Notes * Gisel Butler, [facility] - 04/23/2023 1:51 PM EDT Images from the original note were not included. Medication Therapy Disease Management Clinic - Diabetes Management Progress Note Bry Akhtar Jr., identified by name and date of , is a 47 year old male being seen for diabetes management/education. Patient presents for return diabetic visit. DIABETES: Current diabetic medications: Metformin HCL 500mg, 2 tabs BID Lantus 25units AM [id number] Novolog 16 units with meals Start Victoza 0.6 mg once daily x 1 week then increase to 1.2 mg once daily thereafter. GFR >90 as of01/05/2023 Medication Injection Site: Abdomen Lifestyle: Diet: unchanged Glucose Review/SMBG: Readings obtained from patient device Hypoglycemia: Does your blood sugar go below 70 mg/dL? No Hyperglycemia symptoms present: None reported Recent Labs Units 01/05/23 1133 09/28/22 1057 [...] yes BP Readings from Last 3 Encounters: 02/25/23 138/67 02/24/23 144/72 01/27/23 138/74 Blood pressure at goal: yes HYPERLIPIDEMIA: Patient is taking moderate or high intensity statin: No Current regimen: none, was previously on atorvastatin Goal statin intensity: high The 10-year ASCVD risk score (Lynne KAT, et al., 2019) is: 25.9% Values used to calculate the score: Age: 47 years Sex: Male Is Non- : No Diabetic: Yes Tobacco smoker: Yes Systolic Blood Pressure: 138 mmHg Is BP treated: Yes HDL Cholesterol: 38 mg/dL Total Cholesterol: 219 mg/dL Recent Labs Units 01/05/23 1133 09/01/21 1038 LDL CHOLESTEROL (CALCULATED) - [facility] mg/dL 126 116 HEALTH MAINTENANCE REVIEW: Health Maintenance Due Topic Date Due Hepatitis B (1 of 3 - 3-dose series) Never done HIV Screening Never done Hepatitis C Screening Never done Pneumococcal Vaccine: Pediatrics (0 to 5 Years) and At-Risk Patients (6 to 64 Years) (2 - PCV) 11/03/2016 COVID-19 Vaccine (4 - Pfizer series) 12/16/2021 DIABETES-EYE EXAM 03/07/2022 DIABETES-FOOT EXAM 03/07/2022 ASSESSMENT & PLAN: ICD-10-CM 1. Type 2 diabetes mellitus with hemoglobin A1c goal of less than 7.0% (HCC) E11.9 Considerations: - Jardiance caused DKA - Wegovy intolerable BG Readings - Blood sugars uncontrolled. Dexcom reviewed with patient. Much better control when he was taking wegovy. Medications - Reviewed current regimen, patient is adherent to regimen. Tolerating victoza well, but likely to benefit most from mounjaro. Pt agreeable to change. Will submit PA if needed, but patient had taken trulicity in the past, as well as victoza, so mounjaro should be covered at this point. Trulicity and victoza did not provide adequate BG coverage. Advised pt to increase to victoza 1.8 mg until he can get mounjaro from pharmacy. Pt is aware that mounjaro dose is increased [id number]. He will call clinic if he has any side effects, otherwise, will look to increase dose to 5 mg at next fill. Pt agreeable with this plan. Diet, Exercise, Lifestyle - No significant lifestyle changes since last visit. Patient is agreeable to SMBG with Dexcom G6. Patient aware to contact clinic if any hypoglycemia before next visit. MEDICATION CHANGES: yes, see below; preferred pharmacy: [facility] for now, but is open to transitioning to [facility] Diabetic Medications: Metformin HCL 500mg, 2 tabs BID Lantus 25units AM [id number] Novolog 16 units with meals STOP Victoza 1.8 mg once daily START Mounjaro 2.5 mg once weekly x 4 weeks, increase as tolerated GFR >90 as of01/05/2023 FOLLOW UP: Return to clinic in 8 weeks 06/18/2023 Gisel Butler RP Clinical Pharmacist - Hearing Aid Assistant Medication Therapy Management Clinic 04/23/2023, 1:52 PM documented in this encounter Plan of Treatment Upcoming Encounters Date Type Specialty Care Team Description 05/04/2023 Imaging Radiology 05/04/2023 Imaging Radiology 05/04/2023 Imaging Radiology 05/04/2023 Imaging Radiology 06/03/2023 Procedure Only Endoscopy Kenneth Butterfield MD [address] [place] [address] 06/08/2023 Office Visit Gastroenterology Alondra Cleaning CRNP [address] [place] [address] 06/18/2023 Telemedicine Pharmacy [address] [address] 07/09/2023 Office Visit Family Medicine [facility] [address] [facility] [id number] 09/30/2023 Procedure Only Endoscopy Janak Aldrich MD [address] [place] [address] Health Maintenance Due Date Last Done Comments [...] this encounter Medical Devices Implanted Type Area Tapper Operator Device Identifier Shelf Expiration Date Model / Serial / Lot Suture [place] Dbl Load 5.5mm - [id number] Implanted:Qty: 1 on 12/01/2019 by Judith Condon, at OR [facility] Right: Shoulder [employer] 09/16/2021 AR-2323BCT -2 / / [id number] documented as of this encounter Visit Diagnoses Diagnosis Type 2 diabetes mellitus with hemoglobin A1c goal of less than 7.0% ([facility])- Primary documented in this encounter [...] the patient have Health Care Power of Preparer? No Care Teams Slubber Runner Relationship Specialty Start Date End Date Velasquez Valencia MD [address] [place], [place] [phone] PCP - General Family Medicine 09/09/22 documented as of this encounter
--- OUTSIDE RECORDS SUMMARY | 2023-09-19 09:29 | External Medical Summary | Summary of Care ---
Author Name Unknown Organization [facility] Address [address] [place] [address] Phone [phone] Care Team Providers Care Steam Table Attendant Name Role Phone Velasquez Valencia MD Primary Care Provider +1- [phone] Reason for Visit * Reason Onset Date Comments Pre Cert/Prior Auth 04/30/2023 mounjaro FYI 04/30/2023 Encounter Details Date Type Department Care Team Description 04/30/2023 [facility]phone Pharm[facility], [address] [address] [facility] [address] [place] [address] Pre Cert/Prior Auth (mounjaro); FYI Allergies Active [...] times a day. 0 Active Droplet Pen [place] 31G X 5 MM (Insulin Pen Needle)Indications [...] . Patient and pharmacy made aware by [facility]. Information will be faxed to the office. Thank you, Melly Vieira Gameroom Technician I Central[facility] Pharm[facility] Services ([facility]PS) (Formerly Telepharmacy) 04/30/2023,1:05 PM * Telephone Encounter - Gisel Butler RPh - 04/30/2023 12:49 PM EDT Received M request to submit PA for patient's mounjaro. Patient has [facility] Family, submitted PA via prompt [place] Prior Authorization request details: Prior Auth ([facility]) ID: [id number] Drug/Service Name: MOUNJARO 2.5 MG/0.5 ML PEN Patient: BRY BARAJAS Date Requested: 04/30/2023 12:47:36 PM MemberID: [id number] : 1975 Gisel Butler PharmD Clinical Pharmacist Medication Therapy Disease Management 04/30/2023, 12:50 PM documented in this encounter Plan of Treatment Upcoming Encounters Date Type Specialty Care Team Description 05/04/2023 Imaging Radiology 05/04/2023 Imaging Radiology 05/04/2023 Imaging Radiology 05/04/2023 Imaging Radiology 06/03/2023 Procedure Only Endoscopy Kenneth Butterfield MD [address] [place] [address] 06/08/2023 Office Visit Gastroenterology Alondra Cleaning CRNP [address] [place] [address] 06/18/2023 Telemedicine Pharmacy [facility] [address] [place] [address] 07/09/2023 Office Visit Family Medicine Velasquez Valencia MD [address] [place] [address] 09/30/2023 Procedure Only Endoscopy Janak Aldrich MD [address] [place] [address] Health Maintenance Due Date Last Done Comments [...] this encounter Medical Devices Implanted Type Area Field Human Resources Manager Device Identifier Shelf Expiration Date Model / Serial / Lot Suture [place] Dbl Load 5.5mm - [id number] Implanted:Qty: 1 on 12/01/2019 by Judith Condon, at OR [facility] Right: Shoulder [employer] 09/16/2021 AR-2323BCT -2 / / [id number] documented as of this encounter Visit Diagnoses Diagnosis Type 2 diabetes mellitus with hemoglobin A1c goal of less than 7.0% ([facility])- Primary documented in this encounter Advance Directives [...] the patient have Health Care Power of Miniature Set Builder? No Care Teams Steam Table Attendant Relationship Specialty Start Date End Date Velasquez Valencia MD [address] [place], [place] [phone] PCP - General Family Medicine 09/09/22 documented as of this encounter
--- OUTSIDE RECORDS SUMMARY | 2023-09-19 09:29 | External Medical Summary | Summary of Care ---
Author Name Unknown Organization [facility] Address [address] [place] [facility] [address] Phone [phone] Care Team Providers Care Car Loader Name Role Phone Velasquez Valencia MD Primary Care Provider +1- [phone] Encounter Details Date Type Department Care Team Description 04/23/2023 Nurse Only Ancillary Department, [facility] [address] [place] [address] [place], Nurse [address] [place] [address] Canceled (Patient Cancel-Schedule Preference) Allergies Active Allergy Reactions Severity Noted Date Comments Cefaclor Unknown 07/26/2018 As child Empagliflozin Other (Please comment) 05/16/2021 DKA with hospitalization documented as of this encounter (statuses as of 04/28/2023) Medications Medication Sig Dispensed Refills Start Date [...] times a day. 0 Active Droplet Pen [place] 31G X 5 MM (Insulin Pen Needle)Indications [...] as of this encounter (statuses as of 04/28/2023) Active Problems Problem Noted Date Neuropathy 02/24/2023 [...] as of this encounter (statuses as of 04/28/2023) Resolved Problems Problem Noted Date Resolved Date [...] as of this encounter (statuses as of 04/28/2023) Immunizations Name Administration Dates Next Due COVID-19 mRNA, LNP-s, No Pre serve, 2-Dose Series ([employer]) 10/21/2021,03/01/2021,02/07/2021 H1N1 2009 Influenza, IM 11/04/2009 Pneumococcal [...] this encounter Patient Instructions * Patient Instructions* Tanesha Goldsmith, JAIRO - 04/23/2023 2:37 PM EDT Images from the original note were not included. Dear Bry Akhtar Jr., The care of your Diabetes is very important to us. A yearly diabetic eye exam is important to protect your vision. If youre getting an eye exam done outside of [facility] please tell your Eye Doctor to fax or mail us the results of your Diabetic Eye Exam at your next visit. Our Address and Fax Number are listed below to help. Thank you for helping us to improve your Diabetes Care Our Office Address and Fax Number: Velasquez Valencia MD Ancillary Department, [address] [address] Diabetic Retinopathy: Evaluating Your Eyes Diabetic retinopathy is a condition that happens when diabetes damages blood vessels in the rear ofthe eye. It can lead to vision loss. To help catch it early, have a complete dilated eye exam at least once a year. During the exam, the eye healthcare provider will review your medical history, examine your eyes, and check your vision. Women who are and have pre-existing type 1 or type 2 diabetes have an increased risk of retinopathy. Women with diabetes should have an eye exam before or in the first trimester. They should continue to be monitored every trimester and for 1 year after delivery, depending on the severity of the retinopathy. The retina is the light-sensitive part of the eye that allows you to see. High blood sugar can damage blood vessels of the retina and cause them to leak or bleed. This damage can lead to abnormal blood vessel growth. This condition is called diabetic retinopathy. You may not have symptoms early in the disease. Later, there may be floaters, blurred vision, or poor night vision. There may also be partial or complete vision loss. Early cases of diabetic retinopathy can be treated by carefully controlling blood sugar, blood pressure, and cholesterol. Surgery or laser treatments may help restore lost vision. Laser surgery can shrink abnormal blood vessels or close ones that are leaking. Medicines injected in the eye can help decrease swelling of the retina. Home care Take all medicines, including insulin or oral diabetic medicine, exactly as prescribed. Follow the diet advised by your healthcare provider. If you have high cholesterol, follow a low-fat, low-cholesterol diet. Monitor blood sugars as advised. Try to achieve your ideal weight. If you smoke, quit smoking. Tobacco use worsens the effect of diabetes on your blood vessels. If you have high blood pressure, consider buying an automatic blood pressure machine. These are available at most pharmacies. Use this to monitor your blood pressure. Report your blood pressure readings to your healthcare provider. Exercise regularly. Follow-up care Follow up with your healthcare provider, or as advised. You must have a complete eye exam at least once a year, more often if needed. Untreated diabetic retinopathy can lead to complete loss of vision. Occupational therapists can help you adapt to any vision loss you have, including learning techniques to safely administer insulin. When to seek medical advice Call your healthcare provider right away if any of these occur. Increasing blurriness or any sudden changes in your vision Sudden flashes of light inside your eye New floaters (small dots or strings that seem to be moving across your field of vision) Eye pain, redness, or discharge from your eyelid New dark spots appearing in your field of vision Halos around lights Dimness of vision Partial or complete loss of vision Women with diabetes should have a complete eye exam before becoming , or as soon as possible when they find out they are . Retinopathy sometimes worsens during . Your eye exam Your eye healthcare provider uses an eye chart and other tools to check your vision. Then he or sheexamines your eyes for signs of disease. You are given eye drops to widen (dilate) your pupils. Youmay have one or more of the following tests: Tonometry to measure fluid pressure inside the eye. Slit lamp exam to allow the healthcare provider to view the structures of your eye. Ultrasound to create an image of the eye using sound waves. Ultrasound may be used if blood is found in the clear gel that fills the eye (vitreous). Ocular coherence tomography (OCT) to create an image of the retina using light waves. This showsif there is fluid leaking into certain parts of the eye. It can also measure the thickness of the retina. Fluorescein angiography This test may be done to check the health of the inside lining of the eye (retina). It also checks the tiny blood vessels (capillaries) that carry blood to the retina. During the test: Photographs are taken of the retina. A dye is then injected into the bloodstream through the arm or hand. The dye travels to the capillaries in the eye. More photographs are taken of the retina. The dye causes the capillaries to stand out on the photographs. You may feel brief nausea during the procedure. For a few hours after the test, your skin, eyes, and urine may appear yellow. Talk with your healthcare provider for more information about this test. Date Last Reviewed: 03/18/201619996711-1393 [employer]. [address] [place] [address]. All rights reserved. This information is not intended as a substitute for professional medical care. Always follow your healthcare professional's instructions. documented in this encounter Progress Notes * Tanesha Goldsmith LPN - 04/23/2023 2:37 PM EDT The importance of having a yearly diabetic eye exam has been discussed with patient. Order and/or Referral placed along with patient instructions. Provider made aware. Tanesha Goldsmith LPN documented in this encounter Plan of Treatment Upcoming Encounters Date Type Specialty Care Team Description 05/04/2023 Imaging Radiology 05/04/2023 Imaging Radiology 05/04/2023 Imaging Radiology 05/04/2023 Imaging Radiology 06/03/2023 Procedure Only Endoscopy Kenneth Butterfield MD [address] [place] [address] 06/08/2023 Office Visit Gastroenterology Alondra Cleaning CRNP [address] [place] [address] 06/18/2023 Telemedicine [facility] [address] [place] [address] 07/09/2023 [facility] [address] [place] [address] 09/30/2023 Procedure Only Endoscopy Janak Aldrich MD [address] [place] [address] Health Maintenance Due Date Last Done Comments [...] exists DISCUSS TOBACCO CESSATION (REFER TO SMARTSET #0836) 10/16/2023 10/16/2022 Albumin/Creatinine Ratio 01/06/2024 023, 09/01/2021, [...] this encounter Medical Devices Implanted Type Area Bucket Chucker Device Identifier Shelf Expiration Date Model / Serial / Lot Suture [place] Dbl Load 5.5mm - [id number] Implanted:Qty: 1 on 12/01/2019 by Judith Condon, at OR [facility] Right: Shoulder [employer] 09/16/2021 [id number] -[id number] / / [id number] documented as of this encounter Visit Diagnoses Diagnosis DM type 2 nursing care encounter (HCC)- Primary Type II or unspecified type diabetes mellitus without mention of complication, not stated as uncontrolled documented in this [...] the patient have Health Care Power of Relief Man? No Care Teams Car Loader Relationship Specialty Start Date End Date Velasquez Valencia MD [address] [facility] [place] [id number] PCP - General Family Medicine 09/09/22 documented as of this encounter
--- OUTSIDE RECORDS SUMMARY | 2023-09-19 09:29 | External Medical Summary | Summary of Care ---
Author Name Unknown Organization [facility] Address [address] [facility] [address] Phone [phone] Care Team Providers Care Drill Press Operator Helper Name Role Phone Velasquez Valencia MD Primary Care Provider +1- [phone] Encounter Details Date Type Department Care Team Description 04/15/2023 Procedure Only Endoscopy, [facility] [address] [place] [address] Belen Jones DO [address] [place] [address] Other irritable bowel syndrome* Allergies Active Allergy Reactions Severity Noted Date Comments Cefaclor Unknown 07/26/2018 As child Empagliflozin Other (Please comment) 05/16/2021 DKA with hospitalization documented as of this encounter (statuses as of 04/19/2023) Medications Medication Sig Dispensed Refills Start Date [...] times a day. 0 Active Droplet Pen [place] 31G X 5 MM (Insulin Pen Needle)Indications [...] once daily 90 Tablet 3 07/21/2022 Active Famotidine 20 MG Oral Tablet (Pepcid) take 1 tablet by mouth once daily at bedtime 90 Tablet 1 08/11/2022 Active CPAP every night at bedtime. 0 [...] with meals 45 mL 3 03/01/2023 Active Victoza 18 MG/3ML Subcutaneous Solution Pen-injector (Liraglutide)Indic ations:Type 2 diabetes mellitus with hemoglobin A1c goal of less than 7.0% (HCC) Inject 0.6 mg once daily for 1 week, then increase to 1.2 mg once daily 9 mL 11 03/22/2023 Active Hospital, Clinic, or Other Facility Administered Medication Ordered Dose Route Frequency Start Date End Date Status Albuterol Sulfate (Proventil) (5 MG/ML) 0.5% *conc* inhalation solution 2.5 mgIndications:Chronic respiratory failure with hypercapnia (HCC) 2.5 mg NEBULIZER PRN 12/01/2022 12/01/2023 Ac tive documented as of this encounter (statuses as of 04/19/2023) Active Problems Problem Noted Date Neuropathy 02/24/2023 [...] as of this encounter (statuses as of 04/19/2023) Resolved Problems Problem Noted Date Resolved Date [...] as of this encounter (statuses as of 04/19/2023) Immunizations Name Administration Dates Next Due COVID-19 mRNA, LNP-s, No Pre serve, 2-Dose Series ([employer]) 10/21/2021,03/01/2021,02/07/2021 H1N1 2009 Influenza, IM 11/04/2009 Pneumococcal [...] Encounters Date Type Specialty Care Team Description 04/23/2023 Office Visit Pharmacy [facility] [address] [place] [address] 05/04/2023 Imaging Radiology 05/04/2023 Imaging Radiology 05/04/2023 Imaging Radiology 05/04/2023 Imaging Radiology 06/03/2023 Procedure Only Endoscopy Kenneth Butterfield MD [address] [place] [address] 06/08/2023 Office Visit Gastroenterology Alondra Cleaning CRNP [address] [place] [address] 07/09/2023 Office Visit Family Medicine Velasquez Valencia MD [address] [place] [address] 09/30/2023 Procedure Only Endoscopy Janak Aldrich MD [address] [place] [address] Health Maintenance Due Date Last Done Comments [...] this encounter Medical Devices Implanted Type Area Firer Electric Locomotive Device Identifier Shelf Expiration Date Model / Serial / Lot Suture [place] Dbl Load 5.5mm - [id number] Implanted:Qty: 1 on 12/01/2019 by Judith Condon, at OR [facility] Right: Shoulder [employer] 09/16/2021 [id number] -[id number] / / [id number] documented as of this encounter Procedures Procedure Name Priority Date/Time Associated Diagnosis Comments COLONOSCOPY 04/15/2023 documented in this encounter Results * COLONOSCOPY (04/15/2023) 04/15/2023 Belen Jones DO GASTRO LOWER documented in this encounter Visit Diagnoses Diagnosis Other irritable bowel syndrome- Primary documented in this encounter Advance Directives [...] the patient have Health Care Power of V Block Saw Operator? No Care Teams Drill Press Operator Helper Relationship Specialty Start Date End Date Velasquez Valencia MD [address] [place] [address] PCP - General Family Medicine 09/09/22 documented as of this encounter
--- OUTSIDE RECORDS SUMMARY | 2023-09-19 09:29 | External Medical Summary | Summary of Care ---
Author Name Unknown Organization [facility] Address [address] [place] [address] Phone [phone] Care Team Providers Care Weigher Alloy Name Role Phone Velasquez Valencia MD Primary Care Provider +1- [phone] Reason for Visit * Reason Onset Date Comments Appointment 04/14/2023 Forms need compl eted prior to 04/27/23 Encounter Details Date Type Department Care Team Description 04/14/2023 Telephone [facility] [address] [place] [address] Velasquez Valencia MD [address] [place] [address] Appointment (Forms need completed prior to... Allergies Active Allergy Reactions Severity Noted Date Comments Cefaclor Unknown 07/26/2018 As child Empagliflozin Other (Please comment) 05/16/2021 DKA with hospitalization documented as of this encounter (statuses as of 04/14/2023) Medications Medication Sig Dispensed Refills Start Date [...] times a day. 0 Active Droplet Pen [place] 31G X 5 MM (Insulin Pen Needle)Indications [...] as of this encounter (statuses as of 04/14/2023) Active Problems Problem Noted Date Neuropathy 02/24/2023 [...] as of this encounter (statuses as of 04/14/2023) Resolved Problems Problem Noted Date Resolved Date [...] as of this encounter (statuses as of 04/14/2023) Immunizations Name Administration Dates Next Due COVID-19 [...] encounter Miscellaneous Notes * Telephone Encounter - DAMION Medellin - 04/14/2023 9:26 AM EDT Spoke to patient and he refused to see any other provider. Offered to see another provider so that he can get in by April 27 (per message below). He only wanted Dr. Valencia. First available is July 15. Patient said he will call back to schedule. 04/14/2023 * Telephone Encounter - DAMION Camacho - 04/14/2023 8:26 AM EDT No Appointments Available Patient declined appointments?: Yes What Visit Type is needed? Return If Acute Visit Type is needed, were surrounding clinics offered to patient (Yes/No)? Was patient offered appointments with other available providers (Yes/No)? Yes See Call Details? (Yes or No): No Patient is requesting an appointment with PCP to complete forms prior to 04/27/23. No appt available. Patient declined seeing other providers for a sooner appointment. Please contact patient to assistwith scheduling. documented in this encounter Plan of Treatment Upcoming Encounters Date Type Specialty Care Team Description 04/15/2023 Procedure Only Endoscopy Belen Jones, DO [address] [place] [address] 04/15/2023 Telemedicine [facility] [address] [place] [address] 05/04/2023 Imaging Radiology 05/04/2023 Imaging Radiology 05/04/2023 Imaging Radiology 05/04/2023 Imaging Radiology 06/03/2023 Procedure Only Endoscopy Kenneth Butterfield MD [address] [place] [address] 06/08/2023 Office Visit Gastroenterology Alondra Cleaning CRNP [address] [place] [address] 07/09/2023 Office Visit Family Medicine Velasquez Valencia MD [address] [place] [address] Health Maintenance Due Date Last Done Comments Hepatitis B (1 of 3 - 3-dose series) 1973 HIV Screening 1988 Hepatitis C Screening 1991 Pneumococcal Vaccine: Pediatrics (0 to 5 Years) and At-Risk Patients (6 to 64 Years) (2 - PCV) 11/03/2016 11/03/2015, 02/09/2006 COLONOSCOPY-EVERY 5 YRS AGES 18-100 04/18/2020 04/18/2015 COVID-19 Vaccine (4 - Pfizer series) 12/16/2021 10/21/2021, 03/01/2021, 02/07/2021 DIABETES-EYE EXAM 03/07/2022 03/07/2021, , 08/21/2008 (Unable to do), Additional history exists DIABETES-FOOT EXAM 03/07/2022 03/07/2021, 0 11/27/2019, 01/13/2018, Additional history exists HbA1c 07/08/2023 01/05/2023, 09/17, 12/01/2021, Additional history exists DISCUSS TOBACCO CESSATION (REFER TO SMARTSET #0321) 10/16/2023 10/16/2022 Albumin/Creatinine Ratio 01/06/2024 023, 09/01/2021, 05/07/2015, Additional history exists GFR 02/08/2024 02/07/2023, 12/17, 01/13/2022, Additional history exists Depression Screening, Annual for Pts 12 and Over 02/25/2024 02/24/2023 Lipid Panel 01/06/2028 01/05/2023, 08/18, 01/08/2011, Additional history exists DTaP,Tdap,and Td Vaccines (2 - Td or Tdap) 05/01/2028 05/01/2018 Influenza Vaccine (FLU shot) Completed , 07/31/2021, 09/16/2020, Additional history exists GARDASIL-HPV IMMUNIZATION SERIES Aged Out No longer eligible based on patient's age to complete this topic MENINGOCOCCAL (MENACTRA/MENVEO) Aged Out No longer eligible based on patient's age to complete this topic documented as of this encounter Medical Devices Implanted Type Area Spring Fitter Helper Device Identifier Shelf Expiration Date Model / Serial / Lot Suture [place] Dbl Load 5.5mm - [id number] Implanted:Qty: 1 on 12/01/2019 by Judith Condon, at OR [facility] Right: Shoulder [employer] 09/16/2021 [id number]-2323BCT -2 / / [id number] documented as of this encounter Advance Directives [...] the patient have Health Care Power of Receiving Lead? No Care Teams Weigher Alloy Relationship Specialty Start Date End Date Velasquez Valencia MD [address] [place] [address] PCP - General Family Medicine 09/09/22 documented as of this encounter
--- OUTSIDE RECORDS SUMMARY | 2023-09-19 09:29 | External Medical Summary | Summary of Care ---
Author Name Unknown Organization [facility] Address [address] [place] [address] Phone [phone] Care Team Providers Care Putty Mixer And Applier Name Role Phone Velasquez Valencia MD Primary Care Provider +1- [phone] Reason for Visit * Reason Onset Date Comments Advice 04/15/2023 Encounter Details Date Type Department Care Team Description 04/15/2023 Telephone Gastroenterology, [address] [address] Belen Jones, DO [address] [place] [address] Advice Allergies Active Allergy Reactions Severity Noted Date Comments Cefaclor Unknown 07/26/2018 As child Empagliflozin Other (Please comment) 05/16/2021 DKA with hospitalization documented as of this encounter (statuses as of 04/15/2023) Medications Medication Sig Dispensed Refills Start Date [...] times a day. 0 Active Droplet Pen [place] 31G X 5 MM (Insulin Pen Needle)Indications [...] as of this encounter (statuses as of 04/15/2023) Active Problems Problem Noted Date Neuropathy 02/24/2023 [...] as of this encounter (statuses as of 04/15/2023) Resolved Problems Problem Noted Date Resolved Date [...] as of this encounter (statuses as of 04/15/2023) Immunizations Name Administration Dates Next Due COVID-19 mRNA, LNP-s, No Pre serve, 2-Dose Series ([facility]) 10/21/2021,03/01/2021,02/07/2021 H1N1 2009 Influenza, IM 11/04/2009 Pneumococcal [...] Miscellaneous Notes * Telephone Encounter - DAMION Salinas - 04/15/2023 2:38 PM EDT Spoke to pt, colonoscopy scheduled on 09/30 w/ aldrich Instructions mailed * Telephone Encounter - Belen Jones DO - 04/15/2023 9:19 AM EDT The patient presented for colonoscopy today, the exam could not be completed for bowel preparation.Patient will need a extended bowel preparation prior to his next exam at time. I believe his most recent examination was performed by Dr. Wyatt. This can be done by any provider. documented in this encounter Plan of Treatment Upcoming Encounters Date Type Specialty Care Team Description 04/23/2023 Office Visit Pharmacy [address] [address] 05/04/2023 Imaging Radiology 05/04/2023 Imaging Radiology 05/04/2023 Imaging Radiology 05/04/2023 Imaging Radiology 06/03/2023 Procedure Only Endoscopy Kenneth Butterfield MD [address] [place] [address] 06/08/2023 Office Visit Gastroenterology Alondra Cleaning CRNP [address] [place] [address] 07/09/2023 Office Visit Family Medicine Velasquez aVlencia MD [address] [place], [place] [address] 09/30/2023 Procedure Only Endoscopy Janak Aldrich MD [address] [place] [address] Health Maintenance Due Date Last Done Comments [...] exists DISCUSS TOBACCO CESSATION (REFER TO SMARTSET #0508) 10/16/2023 10/16/2022 Albumin/Creatinine Ratio 01/06/2024 023, 09/01/2021, [...] this encounter Medical Devices Implanted Type Area Tour Bus Driver Device Identifier Shelf Expiration Date Model / Serial / Lot Suture [place] Dbl Load 5.5mm - [id number] Implanted:Qty: 1 on 12/01/2019 by Judith Condon, at OR [facility] Right: Shoulder [employer] 09/16/2021 AR-2323BCT -2 / / [id number] documented as of this encounter Advance Directives [...] the patient have Health Care Power of Probation Officer? No Care Teams Putty Mixer And Applier Relationship Specialty Start Date End Date Velasquez Valencia MD [address] [place], [place] [id number] PCP - General Family Medicine 09/09/22 documented as of this encounter
--- OUTSIDE RECORDS SUMMARY | 2023-09-19 09:29 | External Medical Summary | Summary of Care ---
Author Name Unknown Organization [facility] Address [address] [place] [address] Phone [phone] Care Team Providers Care Pharmacy Grad Intern Name Role Phone Velasquez Valencia MD Primary Care Provider +1- [phone] Reason for Visit * Reason Onset Date Comments Advice 04/15/2023 Encounter Details Date Type Department Care Team Description 04/15/2023 Telephone Gastroenterology, [address] [address] Belen Jones, DO [address] [place] [address] Advice Allergies Active Allergy Reactions Severity Noted [...] times a day. 0 Active Droplet Pen [place] 31G X 5 MM (Insulin Pen [...] mRNA, LNP-s, No Pre serve, 2-Dose Series ([employer]!) 10/21/2021,03/01/2021,02/07/2021 H1N1 2009 Influenza, IM 11/04/2009 Pneumococcal [...] encounter Miscellaneous Notes * Telephone Encounter - Belen Jones DO [...] Care Team Description 04/23/2023 Office Visit Pharmacy [facility] [address] [place] [address] 05/04/2023 Imaging Radiology 05/04/2023 Imaging Radiology 05/04/2023 Imaging Radiology 05/04/2023 Imaging Radiology 06/03/2023 Procedure Only Endoscopy Kenneth Butterfield MD [address] [place] [address] 06/08/2023 Office Visit Gastroenterology Alondra Cleaning CRNP [address] [place] [address] 07/09/2023 Office Visit Family Medicine Velasquez Valencia MD [address] [place] [address] Health Maintenance Due Date Last Done Comments [...] exists DISCUSS TOBACCO CESSATION (REFER TO SMARTSET #6177) 10/16/2023 10/16/2022 Albumin/Creatinine Ratio 01/06/2024 023, 09/01/2021, [...] this encounter Medical Devices Implanted Type Area Oncology Account Specialist Device Identifier Shelf Expiration Date Model / Serial / Lot Suture [place] Dbl Load 5.5mm - [id number] Implanted:Qty: 1 on 12/01/2019 by Judith Condon DO at OR [facility] Right: Shoulder [employer] 09/16/2021 AR-2323BCT -2 / / [id number] documented as of this encounter Advance Directives [...] the patient have Health Care Power of School Cafeteria Head Cook? No Care Teams Pharmacy Grad Intern Relationship Specialty Start Date End Date Velasquez Valencia MD [address] [place] [address] PCP - General Family Medicine 09/09/22 documented as of this encounter
--- OUTSIDE RECORDS SUMMARY | 2023-09-19 09:29 | External Medical Summary | Summary of Care ---
Author Name Unknown Organization [facility] Address [address] [place] [address] Phone [phone] Care Team Providers Care Still Photographer Name Role Phone Velasquez Polo MD Primary Care Provider [phone] Reason for Visit * Reason Onset Date Comments Medication Refill 04/24/2023 Encounter Details Date Type Department Care Team Description 04/23/2023 Refill [facility] [address] [place] [address] Velasquez Polo MD [address] [place] [address] Allergies Active Allergy Reactions Severity Noted Date Comments Cefaclor Unknown 07/26/2018 As child Empagliflozin Other (Please comment) 05/16/2021 DKA with hospitalization documented as of this encounter (statuses as of 04/24/2023) Medications Medication Sig Dispensed Refills Start Date [...] times a day. 0 Active Droplet Pen [place] 31G X 5 MM (Insulin Pen Needle)Indication [...] before bedtime. 10.2 g 12 3 Active Cyclobenzaprine HCl 10 MG Oral [...] at bedtime. 90 Tablet 3 3 Active Famotidine 20 MG Oral Tablet (Pepcid) take 1 tablet by mouth once daily at bedtime 90 Tablet 1 2 04/23/20 23 Discontinu ed(Refill) Hospital, Clinic, or Other Facility Administered Medication Ordered Dose Route Frequency Start Date End Date Status Albuterol Sulfate (Proventil) (5 MG/ML) 0.5% *conc* inhalation solution 2.5 mgIndications:Chronic respiratory failure with hypercapnia (HCC) 2.5 mg NEBULIZER PRN 12/01/2022 12/01/2023 Ac tive documented as of this encounter (statuses as of 04/24/2023) Active Problems Problem Noted Date Neuropathy 02/24/2023 [...] as of this encounter (statuses as of 04/24/2023) Resolved Problems Problem Noted Date Resolved Date [...] as of this encounter (statuses as of 04/24/2023) Immunizations Name Administration Dates Next Due COVID-19 mRNA, LNP-s, No Pre serve, 2-Dose Series (Patient Education Systems) 10/21/2021,03/01/2021,02/07/2021 H1N1 2009 Influenza, IM 11/04/2009 Pneumococcal [...] encounter Miscellaneous Notes * Telephone Encounter - Lisa Holland [facility] - 04/24/2023 8:15 PM EDTSigned Prescriptions: Disp Refills Famotidine 20 MG Oral Tablet (Pepcid) 90 Tab*3 Sig: Take 1 Tablet by mouth every night at bedtime. Authorizing Provider: VELASQUEZ POLO Ordering User: LISA HOLLAND * Telephone Encounter - Gisel Butler [facility] - 04/23/2023 2:05 PM EDT Pt requesting refill for famotidine 20 mg. Please approve if appropriate. Gisel Butler, PharmD Clinical Pharmacist Medication Therapy Disease Management 04/23/2023, 2:06 PM documented in this encounter Plan of Treatment Upcoming Encounters Date Type Specialty Care Team Description 05/04/2023 Imaging Radiology 05/04/2023 Imaging Radiology 05/04/2023 Imaging Radiology 05/04/2023 Imaging Radiology 06/03/2023 Procedure Only Endoscopy Kenneth Butterfield MD [address] [facility] [place] [address] 06/08/2023 Office Visit Gastroenterology Alondra Cleaning CRNP [address] [place] [address] 06/18/2023 Telemedicine Pharmacy [facility] [address] [place] [address] 07/09/2023 Office Visit Family Medicine Velasquez Polo MD [address] [place] [address] 09/30/2023 Procedure Only Endoscopy Janak Aldrich MD [address] [place] [address] Health Maintenance Due Date Last Done Comments [...] exists DISCUSS TOBACCO CESSATION (REFER TO SMARTSET #1114) 10/16/2023 10/16/2022 Albumin/Creatinine Ratio 01/06/2024 023, 09/01/2021, [...] this encounter Medical Devices Implanted Type Area Paste Up Worker Device Identifier Shelf Expiration Date Model / Serial / Lot Suture [place] Dbl Load 5.5mm - [id number] Implanted:Qty: 1 on 12/01/2019 by Judith Condon, at OR [facility] Right: Shoulder [employer] 09/16/2021 [id number] / / [id number] documented as of this encounter Advance Directives [...] the patient have Health Care Power of Netsuite Developer? No Care Teams Still Photographer Relationship Specialty Start Date End Date Velasquez Polo MD [address] [place] [address] PCP - General Family Medicine 09/09/22 documented as of this encounter
--- NOTE | 2023-09-19 09:44 | Emergency Department Note ---
ED Provider Note History of Present Illness Chief Complaint: Illness Stated Complaint: CHEST PAIN, COUGH, HEADACHE Time Seen by Provider: 09/19/23 09:27 Source: patient Mode of arrival: ambulatory Limitations: no limitations This patient is a 47-year-old male who presents to the emergency department for evaluation of cough, body aches, headache and chest pain which started 2 days ago. Patient does report some nasal congestion. He denies any fevers. 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 He denies any known COVID-19 exposures. Patient is a diabetic states his sugars have been well-controlled recently. Home Medications Medication Instructions Recorded Confirmed Type insulin aspart U-100 100 unit/mL 16 unit subcut TID 06/09/19 09/19/23 History (3 mL) subcutaneous pen (Novolog FlexPen U-100 Insulin aspart) dicyclomine 10 mg capsule 10 mg PO QID PRN Diarrhea 05/01/20 09/19/23 History famotidine 20 mg tablet 20 mg PO HS 07/13/20 09/19/23 History docusate sodium 100 mg capsule 100 mg PO BID PRN Constipation 02/25/21 09/19/23 History (Col-Rite) pantoprazole 40 mg tablet,delayed 40 mg PO BID 02/25/21 09/19/23 History release losartan 50 mg tablet 50 mg PO QAM 08/26/21 09/19/23 History metformin 500 mg tablet 1,000 mg PO BID 08/26/21 09/19/23 History cyclobenzaprine 10 mg tablet 10 mg PO HS muscle spasms 09/06/22 09/19/23 History gabapentin 100 mg capsule See Rx Instructions .Route .COMPLEX 09/06/22 09/19/23 History insulin glargine 100 unit/mL (3 See Rx Instructions .Route .COMPLEX 09/06/22 09/19/23 History mL) subcutaneous pen (Lantus Solostar U-100 Insulin) metoclopramide HCl 10 mg tablet 10 mg PO TID 09/06/22 09/19/23 History budesonide-formoterol HFA 80 2 puff inhalation BID 02/08/23 09/19/23 History mcg-4.5 mcg/actuation aerosol inhaler (Symbicort) metoprolol succinate 50 mg 75 mg PO QAM 02/08/23 09/19/23 History tablet,extended release 24 hr albuterol sulfate 90 mcg/actuation 3 inh inhalation Q6H #18 grams 05/23/23 09/19/23 Rx aerosol inhaler tirzepatide 2.5 mg/0.5 mL 2.5 mg subcut WK 05/26/23 09/19/23 History subcutaneous pen injector (Mounjaro) tirzepatide 15 mg/0.5 mL 15 mg subcut WK 09/19/23 09/19/23 History subcutaneous pen injector (Mounjaro) Allergies Allergy/AdvReac Type Severity Reaction Status Date / Time cefaclor [From Ceclor] Allergy Unknown childhood Verified 06/03/23 07:58 allergy ? Cephalosporins Allergy Unknown Unknown Verified 06/03/23 07:58 empagliflozin AdvReac Unknown put me Verified 06/03/23 07:58 [From Jardiance] into ketoacidosis? NSAIDS (Non-Steroidal AdvReac Unknown use with Verified 06/03/23 07:58 Anti-Inflamma caution : hx esophagus damage Past Med/Surg History Medical History Arthritis Low magnesium level History of RSV infection & flu a few months ago. Tachycardia chronic high heart rate - unknown etiology - a few months ago increased dose of metoprolol. Rhinovirus dx May 23 [facility] & another illness dx - ? name of /antibiotic and inhalers for. feeling better: only symptom : sore throat. COPD (chronic obstructive pulmonary disease) ? dx of Peripheral neuropathy Diabetes mellitus, type 2 Hypertension Tobacco use Restrictive lung disease Elevated liver function tests History of DVT (deep vein thrombosis) "years ago">no known cause Tussive syncope "occurred only one time, no recent issues" Esophagitis Osteoarthritis Hx of pancreatitis resolved GERD (gastroesophageal reflux disease) Cardiac murmur A CHILD Erectile dysfunction MRSA (methicillin resistant Staphylococcus aureus) carrier over 2 yrs ago>"not sure where it was" Intellectual disability Obstructive sleep apnea cpap Obesity IBS (irritable bowel syndrome) History of ventricular tachycardia "nonsustained" Surgical History History of appendectomy 02/10/2023 History of reduction of nasal fracture 09/25/21-Dr. Garcia Status post incision and drainage LLE History of shoulder surgery right-2019 H/O foot surgery LEFT-2018 History of arthroscopy LEFT KNEE-1987 History of esophagogastroduodenoscopy (EGD) History of colonoscopy with most recent attempt: failed prep. Told would need a 2 day prep prior to colonoscopy in Sep 2023. History of tooth extraction History of tonsillectomy and adenoidectomy 1979 Family History Brother Family history of diabetes mellitus Environmental allergies Asthma Mother Family history of diabetes mellitus Hypertension Environmental allergies Father Family history of diabetes mellitus Hypertension Heart disease Grandfather (Paternal) Lung cancer smoker Aunt Bleeding disorder Other No family history of adverse response to anesthesia Social History Smoking Status: Never smoker Tobacco Type: Cigarettes Age Started Using Tobacco: 14; Cigarettes Per Day: 1ppd/advised npo; Second Hand Exposure: Yes; Do You Dip or Chew Tobacco: No; Hx Alcohol Use: Yes Alcohol type: beer Alcohol Intake Frequency: Monthly or Less Alcohol Intake Frequency Comment: seldom, a couple times per year if that per pt Hx Substance Use: No Preferred Language: Estonian Communication Ability: Effective Marking Stitcher Required: No Beliefs That Will Affect Care: None marital status: / marital status details: single at this time Current Living Situation: Other Current Living Situation Comment: my girlfriend current occupational status: employed 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 other: girlfriend able to assist with dressing changes and care as needed Feels Safe at Home: Yes Diet: diabetic during the past year weight has: remained stable Assistive Devices: CPAP and Other Physical Exam Vital Signs Vital Signs - 24 hr 09/19/23 09:25 09/19/23 10:04 09/19/23 10:09 Temperature 36.6 C Temperature Source Temporal Artery Scan Pulse Rate 108 H 107 H Pulse Rate [Apical] 97 H Respiratory Rate 18 18 Respiratory Effort / Characteristics Non-Labored Respiratory Depth Normal Blood Pressure 139/74 Blood Pressure [Left Arm] 205/149 H Blood Pressure Mean 95 Blood Pressure Mean [Left Arm] 167 Pulse Oximetry 95 96 Oxygen Delivery Method Room Air Sepsis Recent Fever Within 48 Hours No Sepsis New/Unexplained Change in Mental Status No Sepsis Action Taken by Nursing No Action Required 09/19/23 10:17 Temperature Temperature Source Pulse Rate Pulse Rate [Apical] 91 H Respiratory Rate 18 Respiratory Effort / Characteristics Respiratory Depth Blood Pressure Blood Pressure [Left Arm] 152/83 H Blood Pressure Mean Blood Pressure Mean [Left Arm] 106 Pulse Oximetry 91 Oxygen Delivery Method Sepsis Recent Fever Within 48 Hours Sepsis New/Unexplained Change in Mental Status Sepsis Action Taken by Nursing VITALS: Vitals are noted on the nurse's note and reviewed by myself. GENERAL: This is a 47-year-old male, in no acute distress, nondiaphoretic, well- developed well-nourished. SKIN: The skin was without rashes. EARS: External auditory canals clear, tympanic membranes pearly luque without erythema or effusion bilaterally. EYES: Pupils equal round and reactive to light and accommodation. NOSE: Patent, turbinates without inflammation or discharge. No sinus tenderness. MOUTH: Mucous membranes moist. Tonsils are not enlarged. Pharynx without erythema or exudate. NECK: Supple without nuchal rigidity. No lymphadenopathy. HEART: Regular rate and rhythm without murmurs gallops or rubs. LUNGS: Clear to auscultation bilaterally without wheezes, rales or rhonchi. No retractions or accessory muscle use. ABDOMEN: Positive bowel sounds x 4. Soft, nontender to palpation. NEURO: Patient was alert and oriented to person place and time. Course Administered Medications Discontinued Medications Aspirin (Aspirin 81 Mg Chew) 324 mg PO NOW STA Stop: 09/19/23 11:50 Last Admin: 09/19/23 12:14 Dose: 324 mg Documented By: ASSAYER Fentanyl Citrate (Fentanyl Citrate Pf 100 Mcg/2 Ml Vial) 100 mcg IV NOW STA Stop: 09/19/23 11:50 Last Admin: 09/19/23 12:17 Dose: 100 mcg Documented By: ASSAYER Nitroglycerin (Nitroglycerin Sl 0.4 Mg/Tab Tab) 0.4 mg SL NOW STA Stop: 09/19/23 13:56 Last Admin: 09/19/23 14:15 Dose: 0.4 mg Documented By: ASSAYER Medical Decision Making Differential Diagnosis Differential diagnosis includes COVID-19, influenza, viral syndrome, pneumonia, ACS, pleural effusion, among others. Home Medications was personally reviewed by me Laboratory Data Attestation: I reviewed the patient's lab results. 09/19/23 09:47 09/19/23 09:47 Lab Results 09/19/23 09/19/23 09/19/23 Range/Units 09:47 09:56 11:45 WBC 8.06 (4.8-10.8) K/ul RBC 5.01 (4.70-6.10) M/uL Hgb 13.4 L (14.0-18.0) g/dl Hct 41.6 L (42.0-52.0) % MCV 83.0 (80.0-100.0) fL MCH 26.7 (25.0-34.0) pg MCHC 32.2 (32.0-36.0) g/dL RDW Std Deviation 40.7 (36.4-46.3) fL RDW Coeff of Abiodun 13.4 (11.5-14.5) % Plt Count 262 (130-400) K/uL MPV 9.7 (9.4-12.4) fL Immature Gran % (Auto) 1.1 % Neut % (Auto) 58.5 % Lymph % (Auto) 25.1 % Perry % (Auto) 8.2 % Eos % (Auto) 6.1 % Baso % (Auto) 1.0 % Neut # (Auto) 4.72 (1.40-6.50) K/uL Lymph # (Auto) 2.02 (1.20-3.40) K/uL Perry # (Auto) 0.66 H (0.11-0.59) K/uL Eos # (Auto) 0.49 (0.00-0.50) K/uL Baso # (Auto) 0.08 (0.00-0.20) K/uL Immature Gran # (Auto) 0.09 (0.01-0.20) K/uL D-Dimer 700 H* (0-500) ug/L FEU Sodium 139 (136-145) mmol/L Potassium 4.1 (3.5-5.1) mmol/L Chloride 102 (98-107) mmol/L Carbon Dioxide 31 (21-32) mmol/L Anion Gap 6 (3-11) BUN 12 (6-23) mg/dl Creatinine 0.77 (0.6-1.4) mg/dl Est Cr Clr Drug Dosing 181.6 ml/min Est GFR ( Amer) 123.5 ml/min Est GFR (Non-Af Amer) 106.6 ml/min BUN/Creatinine Ratio 15.6 (10-20) Glucose 177 H (70-99(Fasting)) mg/dl Calcium 9.2 (8.6-10.3) mg/dl Total Bilirubin 0.6 (0.2-1.0) mg/dl AST 37 (13-39) U/L ALT 71 H (7-52) U/L Alkaline Phosphatase 65 (34-104) U/L Troponin I High Sens 29.5 H 27.8 H (0-20) pg/ml Total Protein 7.0 (6.0-8.3) gm/dl Albumin 3.9 (3.4-5.0) gm/dl Globulin 3.1 (2.5-4.0) gm/dl Albumin/Globulin Ratio 1.3 (0.9-2) SARS-CoV-2 (PCR) NEGATIVE (Negative) Influenza Type A (PCR) Negative (Neg) Influenza Type B (PCR) Negative (Neg) RSV (RT-PCR) Negative (Neg) Imaging Data Attestation: I personally reviewed and interpreted this imaging study as follows: Radiologist's Impression: Chest X-Ray 09/19/23 09:37 XR chest 1V portable CLINICAL HISTORY: cough, chest pain COMPARISON STUDY: Chest radiograph May 23, 2023. Chest CT May 28, 2023. FINDINGS: Lung volumes are normal. Lungs are clear. There is no pneumothorax or pleural effusion. Cardiac size is stable. Mediastinal contours are normal. There is no evidence for pulmonary edema. IMPRESSION: No acute cardiopulmonary findings. No change in appearance of the chest. ACT 112: Negative or not required by law. Electronically signed by: Serge Ghotra M.D. 09/19/2023 11:00 AM ECG Data Attestation: I personally reviewed and interpreted this ECG as follows: Indication: + chest pain Rate (beats per minute): 106 Rhythm: + sinus tachycardia ECG Intervals/blocks: + Incomplete right bundle branch block ECG ST segments: + Normal ST segments Change: no significant change MDM Narrative Continuous rn cardiac: Order was placed for continuous rn cardiac. Patient was placed on the rn cardiac. Patient was noted to be in sinus tachycardia at an initial rate of 105 bpm. The patient is a 47-year-old male who presents today complaining of flulike symptoms and chest pain. Labs revealed no leukocytosis, anemia or concerning electrolyte abnormalities. Glucose elevated at 177 consistent with patient's known diabetes. Troponin was found to be elevated at 29. His EKG is not suggestive of acute ischemia. COVID-19 testing was negative. Given chest pain and troponin elevation, I did recommend hospitalization and patient was agreeable to this. [facility], who agreed to evaluate the patient for further care. Discharge Plan Visit Data Chief Complaint: Illness Stated Complaint: CHEST PAIN, COUGH, HEADACHE ED Provider: Jae Sanchez ED Midlevel Provider: Mayte Ray Discharge Instructions Interventions: ED Discharge Assessment Last Done: 09/19/23 14:27
[2023-09-19 10:28] LABS: Albumin Globulin Ratio 1.3 (0.9-2); Albumin Level 3.9 gm/dl (3.4-5.0); BUN Creatinine Ratio 15.6 (10-20); Bilirubin,Total 0.6 mg/dl (0.2-1.0); Calcium 9.2 mg/dl (8.6-10.3); Creatinine Clr Calc Pharmacy 181.6 ml/min; Est GFR (African American) 123.5 ml/min; Est GFR (Non-African American) 106.6 ml/min; Globulin 3.1 gm/dl (2.5-4.0); Potassium 4.1 mmol/L (3.5-5.1)
[2023-09-19 10:33] LABS: Basophils # (auto) 0.08 K/uL (0.00-0.20); Eosinophils # (auto) 0.49 K/uL (0.00-0.50); Eosinophils % (auto) 6.1 %; Hematocrit (blood only) 41.6 % (42.0-52.0); Hemoglobin 13.4 g/dl (14.0-18.0); Immature Granulocytes # (auto) 0.09 K/uL (0.01-0.20); Immature Granulocytes % (auto) 1.1 %; Lymphocytes # (auto) 2.02 K/uL (1.20-3.40); Lymphocytes % (auto) 25.1 %; Mean Corpuscular Hemoglobin 26.7 pg (25.0-34.0); Mean Corpuscular Hgb Conc 32.2 g/dL (32.0-36.0); Mean Platelet Volume 9.7 fL (9.4-12.4); Monocytes # (auto) 0.66 K/uL (0.11-0.59); Monocytes % (auto) 8.2 %; Neutrophils # (auto) 4.72 K/uL (1.40-6.50); Neutrophils % (auto) 58.5 %; Platelet Count 262 K/uL (130-400); RDW Coefficient of Variation 13.4 % (11.5-14.5); RDW Standard Deviation 40.7 fL (36.4-46.3); Red Blood Count 5.01 M/uL (4.70-6.10); White Blood Count 8.06 K/ul (4.8-10.8)
[2023-09-19 10:35] LABS: Troponin I High Sensitivity 29.5 pg/ml (0-20)
--- NOTE | 2023-09-19 11:01 | XRay Report ---
XR chest 1V portable CLINICAL HISTORY: cough, chest pain COMPARISON STUDY: Chest radiograph May 23, 2023. Chest CT May 28, 2023. FINDINGS: Lung volumes are normal. Lungs are clear. There is no pneumothorax or pleural effusion. Car diac size is stable. Mediastinal contours are normal. There is no evidence for pulmonary edema. IMPRESSION: No acute cardiopulmonary findings. No change in appearance of the chest. ACT 112: Negative or not required by law. Electronically signed by: Serge Ghotra M.D. 09/19/2023 11:00 AM
[2023-09-19 11:32] LABS: Influenza A virus by PCR Negative (Neg); Influenza B virus by PCR Negative (Neg); RSV by PCR Negative (Neg); SARS CoV2 RNA(COVID-19) Ceph NEGATIVE (Negative)
[2023-09-19] MEDS ORDERED: fentaNYL citrate PF 100 MCG/2 ML VIAL IV STA (11:49)
[2023-09-19] MEDS ORDERED: ASPIRIN 81 MG CHEW PO STA (11:49)
--- NOTE | 2023-09-19 13:27 | History & Physical Report ---
Date of Service September 19, 2023 Assessment & Plan (1) Chest pain: Plan: Atypical Chest Pain: Reproducible on exam DD: Musculoskeletal in origin secondary to bronchitis, possible costochondritis, Less likely ACS Risk factors: H/O HTN, HLP, Tobacco use disorder, DM II, Obesity Initial troponin:29.5 EKG shows: Sinus tachycardia, unchanged from prior CXR: No acute cardiopulmonary findings. No change in appearance of the chest. Check resting ECHO Trend serial cardiac enzymes, fasting lipid panel in AM Start Aspirin Given multiple risk factors, hypertensive urgency will consult cardiology for evaluation Acute bronchitis COVID, RSV, influenza negative Chest x-ray showed no signs of pneumonia Started on doxycycline Antitussives as needed Elevated D-dimer CTA showed no PE Lung nodules Incidental finding on CT --CTA:There are 2 new nodular densities within the left lung with the largest in the left lung apex measuring 1.9 cm. These favor small foci of inflammatory/infectious change. However, [address] recommended to ensure resolution. Needs follow-up CT as outpatient Mild troponin elevation Likely demand ischemia secondary to hypertensive urgency, tachycardia while in ED work up as above DM Type II: Poorly controlled Last HbA1C: 9.3 on 08/03/23 Hold PO meds ISS, basal Insulin, Accu checks, Diabetic diet Monitor BGs HTN Hypertensive urgency BP elevated in ED likely situational Continue losartan, metoprolol IV Labetalol as needed Monitor BP and adjust medications as needed Morbid obesity BMI 41 Lifestyle changes Gastroparesis Irritable bowel syndrome Continue home medications Tobacco use disorder Counseled to quit smoking Refuses nicotine patch H/O DVT Currently not on anticoagulation GERD Continue PPI DAMION currently not using any CPAP Restrictive lung disease due to obesity Continue home inhalers DVT Px: Lovenox SQ Code Status Full Code History of Present Illness Chief Complaint: Chest Pain Primary Care Provider: Velasquez Valencia MD Patient is a 47-year-old male with history of diabetes mellitus, diabetic neuropathy, morbid obesity, COPD, gastroparesis, irritable bowel syndrome, dyslipidemia, tobacco use disorder, history of DVT currently not on any anti coagulation, GERD, obstructive sleep apnea currently not using any CPAP, restrictive lung disease secondary to obesity presents with history of chest pain associated with cough, generalized body ache and headache. Patient states that his chest pain is all across the chest, dull aching type which started on Wednesday. Reports no aggravating or relieving factors. He reports cough with minimal expectoration. States having chronic diarrhea which he attributes to irritable bowel syndrome. He admits to have sick contact--his girlfriend had similar symptoms. He denies any trauma. Also denies any history of dyspnea, palpitations, dizziness, pedal edema, wheezing, hemoptysis, fever, chills, fall, head trauma, syncope, weakness, numbness, change in vision, nausea, vomiting, abdominal pain, change in appetite, dysuria, hematuria, recent change in medications. Patient outpatient records showed serology positive for enterorhinovirus on 08/28/2023. Allergies Allergy/AdvReac Type Severity Reaction Status Date / Time cefaclor [From Ceclor] Allergy Unknown childhood Verified 06/03/23 07:58 allergy ? Cephalosporins Allergy Unknown Unknown Verified 06/03/23 07:58 empagliflozin AdvReac Unknown put me Verified 06/03/23 07:58 [From Jardiance] into ketoacidosis? NSAIDS (Non-Steroidal AdvReac Unknown use with Verified 06/03/23 07:58 Anti-Inflamma caution : hx esophagus damage Home Medications Medication Instructions Recorded Confirmed Type insulin aspart U-100 100 unit/mL 16 unit subcut TID 06/09/19 09/19/23 History (3 mL) subcutaneous pen (Novolog FlexPen U-100 Insulin aspart) dicyclomine 10 mg capsule 10 mg PO QID PRN Diarrhea 05/01/20 09/19/23 History famotidine 20 mg tablet 20 mg PO HS 07/13/20 09/19/23 History docusate sodium 100 mg capsule 100 mg PO BID PRN Constipation 02/25/21 09/19/23 History (Col-Rite) pantoprazole 40 mg tablet,delayed 40 mg PO BID 02/25/21 09/19/23 History release losartan 50 mg tablet 50 mg PO QAM 08/26/21 09/19/23 History metformin 500 mg tablet 1,000 mg PO BID 08/26/21 09/19/23 History cyclobenzaprine 10 mg tablet 10 mg PO HS muscle spasms 09/06/22 09/19/23 History gabapentin 100 mg capsule See Rx Instructions .Route .COMPLEX 09/06/22 09/19/23 History insulin glargine 100 unit/mL (3 See Rx Instructions .Route .COMPLEX 09/06/22 09/19/23 History mL) subcutaneous pen (Lantus Solostar U-100 Insulin) metoclopramide HCl 10 mg tablet 10 mg PO TID 09/06/22 09/19/23 History budesonide-formoterol HFA 80 2 puff inhalation BID 02/08/23 09/19/23 History mcg-4.5 mcg/actuation aerosol inhaler (Symbicort) metoprolol succinate 50 mg 75 mg PO QAM 02/08/23 09/19/23 History tablet,extended release 24 hr albuterol sulfate 90 mcg/actuation 3 inh inhalation Q6H #18 grams 05/23/23 09/19/23 Rx aerosol inhaler tirzepatide 2.5 mg/0.5 mL 2.5 mg subcut WK 05/26/23 09/19/23 History subcutaneous pen injector (Mounjaro) tirzepatide 15 mg/0.5 mL 15 mg subcut WK 09/19/23 09/19/23 History subcutaneous pen injector (Mounjaro) Past Med/Surg History Medical History Arthritis Low magnesium level History of RSV infection & flu a few months ago. Tachycardia chronic high heart rate - unknown etiology - a few months ago increased dose of metoprolol. Rhinovirus dx May 23 [facility] & another illness dx - ? name of /antibiotic and inhalers for. feeling better: only symptom : sore throat. COPD (chronic obstructive pulmonary disease) ? dx of Peripheral neuropathy Diabetes mellitus, type 2 Hypertension Tobacco use Restrictive lung disease Elevated liver function tests History of DVT (deep vein thrombosis) "years ago">no known cause Tussive syncope "occurred only one time, no recent issues" Esophagitis Osteoarthritis Hx of pancreatitis resolved GERD (gastroesophageal reflux disease) Cardiac murmur A CHILD Erectile dysfunction MRSA (methicillin resistant Staphylococcus aureus) carrier over 2 yrs ago>"not sure where it was" Intellectual disability Obstructive sleep apnea cpap Obesity IBS (irritable bowel syndrome) History of ventricular tachycardia "nonsustained" Surgical History History of appendectomy 02/10/2023 History of reduction of nasal fracture 09/25/21-Dr. Garcia Status post incision and drainage LLE History of shoulder surgery right-2020 H/O foot surgery LEFT-2018 History of arthroscopy LEFT [id number] History of esophagogastroduodenoscopy (EGD) History of colonoscopy with most recent attempt: failed prep. Told would need a 2 day prep prior to colonoscopy in Sep 2023. History of tooth extraction History of tonsillectomy and adenoidectomy 1979 Family History Brother Family history of diabetes mellitus Environmental allergies Asthma Mother Family history of diabetes mellitus Hypertension Environmental allergies Father Family history of diabetes mellitus Hypertension Heart disease Grandfather (Paternal) Lung cancer smoker Aunt Bleeding disorder Other No family history of adverse response to anesthesia Social History Smoking Status: Never smoker Tobacco Type: Cigarettes Age Started Using Tobacco: 14; Cigarettes Per Day: 1ppd/advised npo; Second Hand Exposure: Yes; Do You Dip or Chew Tobacco: No; Hx Alcohol Use: Yes Alcohol type: beer Alcohol Intake Frequency: Monthly or Less Alcohol Intake Frequency Comment: seldom, a couple times per year if that per pt Hx Substance Use: No Preferred Language: German Communication Ability: Effective Machine Hostler Required: No Beliefs That Will Affect Care: None marital status: / marital status details: single at this time Current Living Situation: Other Current Living Situation Comment: my girlfriend current occupational status: employed 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 other: girlfriend able to assist with dressing changes and care as needed Feels Safe at Home: Yes Diet: diabetic during the past year weight has: remained stable Assistive Devices: CPAP and Other Review of Systems Review of Systems: All systems reviewed & are unremarkable except as noted in Subjective Physical Exam Physical Exam: Physical Exam: Vitals signs as noted above General Appearance:Morbidly Obese, no apparent distress Head: normocephalic, Atraumatic Eyes: normal inspection, EOMI Neck: supple, Trachea midline Respiratory/Chest: Normal breath sounds, CTA, No accessory muscle use, + reproducible left sided chest pain Cardiovascular: S1, S2, No murmur Abdomen/GI:Soft, Non tender, Bowel sounds present Extremities/Musculoskeletal:normal inspection, no edema Neurologic/Psych:AAOX3, grossly no focal neurological deficits Skin: normal color, warm Results & Data Results & Data Vital Signs (Past 12 Hours) Vital Signs Temp Pulse Pulse Resp BP BP Pulse Ox 09/19/23 10:17 91 H 18 152/83 H 91 09/19/23 10:09 97 H 18 205/149 H 96 09/19/23 10:04 107 H 09/19/23 09:25 36.6 C 108 H 18 139/74 95 O2 Del Method 09/19/23 10:17 09/19/23 10:09 09/19/23 10:04 09/19/23 09:25 Room Air Laboratory Results Short CBC 09/19/23 Range/Units 09:47 WBC 8.06 (4.8-10.8) K/ul Hgb 13.4 L (14.0-18.0) g/dl Hct 41.6 L (42.0-52.0) % Plt Count 262 (130-400) K/uL BMP 09/19/23 09:47 Sodium 139 Potassium 4.1 Chloride 102 Carbon Dioxide 31 BUN 12 Creatinine 0.77 Glucose 177 H Calcium 9.2 Liver Function 09/19/23 Range/Units 09:47 Total Bilirubin 0.6 (0.2-1.0) mg/dl AST 37 (13-39) U/L ALT 71 H (7-52) U/L Alkaline Phosphatase 65 (34-104) U/L Albumin 3.9 (3.4-5.0) gm/dl Diagnostic Findings CXR: No acute cardiopulmonary findings. No change in appearance of the chest. ECG Additional Comments: EKG: Sinus tachycardia, incomplete right bundle branch block, QTc 467, when compared to prior EKG no significant changes. Code Status & VTE Plan VTE Prophylaxis Plan VTE Prophylaxis will be ordered: Yes
--- NOTE | 2023-09-19 13:27 | Electrocardiogram Report ---
Test Reason : Blood Pressure : / mmHG Vent. Rate : 106 BPM Atrial Rate : 106 BPM P-R Int : 144 ms QRS Dur : 100 ms QT Int : 352 ms P-R-T Axes : 059 -05 065 degrees QTc Int : 467 ms Sinus tachycardia Incomplete right bundle branch block Cannot rule out Anterior infarct , age undetermined Abnormal ECG When compared with ECG of 27-MAY-2023 20:49, No significant change was found Confirmed by George Morris ([id number]) on 09/19/2023 1:27:23 PM Referred By: REFERRED SELF Confirmed By:George Morris
[2023-09-19] MEDS ORDERED: NITROGLYCERIN SL 0.4 MG/TAB TAB SL STA (13:55)
[2023-09-19] MEDS ORDERED: LABETALOL HCL IV 5 MG/ML 20ML IV PRN (13:56)
[2023-09-19 14:02] LABS: D Dimer 700 ug/L FEU (0-500)
[2023-09-19] MEDS ORDERED: LACTATED RINGER'S 1,000 ML IV ONE (14:13)
[2023-09-19] MEDS ORDERED: GLUCOSE 10 TAB/TUBE PO PRN (14:26)
[2023-09-19] MEDS ORDERED: NON-FORMULARY MEDICATION (Insulin Glargine [Lantus Solostar U-100 Insulin] 100 unit/mL (3 SCH (14:26)
[2023-09-19] MEDS ORDERED: ACETAMINOPHEN 325 MG TAB PO PRN (14:26)
[2023-09-19] MEDS ORDERED: GLUCOSE 40% GEL 15 GM TUBE PO PRN (14:26)
[2023-09-19] MEDS ORDERED: guaiFENesin/DEXTROM SYRUP 200MG/20MG 10ML UDC PO PRN (14:26)
[2023-09-19] MEDS ORDERED: DEXTROSE 50% 50 ML SYRINGE IV PRN (14:26)
[2023-09-19] MEDS ORDERED: CARBOHYDRATES FOR HYPOGLYCEMIA PO PRN (14:26)
[2023-09-19] MEDS ORDERED: ALBUTEROL HFA 8 GM INHALER INH SCH (14:26)
[2023-09-19] MEDS ORDERED: NITROGLYCERIN SL 0.4 MG/TAB TAB SL PRN (14:26)
[2023-09-19] MEDS ORDERED: POLYETHYLENE (MIRALAX) 17 GM PACK PO PRN (14:26)
[2023-09-19] MEDS ORDERED: DICYCLOMINE HCL 10 MG CAP PO PRN (14:26)
[2023-09-19] MEDS ORDERED: GLUCAGON FOR INJ 1 MG VIAL SQ PRN (14:26)
[2023-09-19] MEDS ORDERED: ONDANSETRON INJ 2 MG/ML 2 ML VIAL IV PRN (14:26)
[2023-09-19] MEDS ORDERED: DOCUSATE SODIUM 100 MG CAP PO PRN (14:26)
[2023-09-19] MEDS ORDERED: OPTIRAY 320 125ml IV ONE (15:47)
[2023-09-19] MEDS: MoRPHine SULFATE 2 MG/ML CARP IV PRN ×2 (16:15→22:48)
--- NOTE | 2023-09-19 16:19 | CT Scan Report ---
CHEST CTA for PULMONARY ARTERIES CT DOSE: 945.67 mGy.cm HISTORY: Shortness of breath. TECHNIQUE: Multiaxial CT images of the chest were performed following the intravenous administration of contrast to evaluate the pulmonary arteries. 3D/Maximal intensity projection images were also obta ined. Sagittal and coronal reformations were also reviewed. A dose lowering technique was utilized a dhering to the principles of ALARA. COMPARISON STUDY: Chest CTA 05/28/2023. FINDINGS: Normal caliber thoracic aorta with no evidence for a dissection. Mild coronary artery calci fications are again noted. The heart is normal in size. No pleural or pericardial effusions. Normal c aliber esophagus. No mediastinal or hilar lymphadenopathy. Nondiagnostic evaluation of the bilateral lower lobe segmental/subsegmental pulmonary arteries due to the respiratory motion artifact. However, the remaining pulmonary arteries show no filling defects to suggest a pulmonary embolus. Limited vie ws of the upper abdomen demonstrate a normal spleen and adrenal glands. Hepatic steatosis is noted. N o acute fractures. No pneumothorax. The central airways are patent. There is a new 1.9 cm groundglass nodule within the left upper lobe on image 196. There is 9 mm nodular focus in the base of the left lower lobe on image 69. This is suboptimally assessed due to motion artifact but is new from the prio r study. Punctate calcified granulomas again noted within the right lower lobe. Otherwise, the right lung is clear. No evidence for pulmonary edema. IMPRESSION: 1. No evidence for a pulmonary embolus with limitations as described above. 2. There are 2 new nodular densities within the left lung with the largest in the left lung apex marybel uring 1.9 cm. These favor small foci of inflammatory/infectious change. However, [address] rec ommended to ensure resolution. ACT 112: Positive. There are findings on this exam that require communication between the performing entity and the patient following Patient Test Result Information Act ([place] Act 112) guidelines. Electronically signed by: Vijay Wadsworth M.D. 09/19/2023 4:16 PM
[2023-09-19] MEDS: DOXYCYCLINE HYCLATE 100 MG CAP PO SCH ×2 (16:20→22:47)
[2023-09-19] MEDS: METOCLOPRAMIDE HCL 10 MG TABLET PO SCH ×2 (16:20→22:47)
[2023-09-19] MEDS: INSULIN ASPART PER UNIT CHARGE SC SCH ×2 (17:20→23:02)
[2023-09-19] MEDS: ALBUTEROL HFA 8 GM INHALER INH SCH (18:08)
[2023-09-19] MEDS ORDERED: LANTUS PER UNIT CHARGE SC SCH (21:00)
[2023-09-19] MEDS: FAMOTIDINE 20 MG TAB PO SCH (22:46)
[2023-09-19] MEDS: PANTOprazole 40 MG TAB PO SCH (22:47)
[2023-09-19] MEDS: GABAPENTIN 100 MG CAP PO SCH (22:47)
[2023-09-19] MEDS: CYCLOBENZAPRINE HCL 10 MG TAB PO SCH (22:47)
[2023-09-19] MEDS: ENOXAPARIN INJ 30 MG/0.3 ML SYR SQ SCH (22:48)
[2023-09-19] MEDS: LANTUS PER UNIT CHARGE SC SCH (22:58)
[2023-09-20] MEDS: ALBUTEROL HFA 8 GM INHALER INH SCH ×4 (01:51→20:19)
[2023-09-20] MEDS ORDERED: MAGNESIUM SULFATE / D5W 1 GM/100 ML BAG IV ONE (03:16)
[2023-09-20 05:41] LABS: Albumin Globulin Ratio 1.3 (0.9-2); Albumin Level 3.7 gm/dl (3.4-5.0); BUN Creatinine Ratio 18.8 (10-20); Bilirubin,Total 0.6 mg/dl (0.2-1.0); C Reactive Protein 1.44 mg/dl (0-0.5); Calcium 8.7 mg/dl (8.6-10.3); Chol HDL Ratio 6.7 (0-5); Creatinine Clr Calc Pharmacy 202.7 ml/min; Est GFR (African American) 129.2 ml/min; Est GFR (Non-African American) 111.5 ml/min; Globulin 2.8 gm/dl (2.5-4.0); Magnesium 1.5 mg/dl (1.7-2.4); Total Protein 6.5 gm/dl (6.0-8.3)
[2023-09-20 06:01] LABS: Hematocrit (blood only) 40.5 % (42.0-52.0); Hemoglobin 13.3 g/dl (14.0-18.0); Mean Corpuscular Hemoglobin 26.8 pg (25.0-34.0); Mean Corpuscular Hgb Conc 32.8 g/dL (32.0-36.0); Mean Corpuscular Volume 81.7 fL (80.0-100.0); Mean Platelet Volume 10.2 fL (9.4-12.4); Platelet Count 220 K/uL (130-400); Platelet Estimate Normal (Normal); RDW Coefficient of Variation 13.7 % (11.5-14.5); RDW Standard Deviation 40.4 fL (36.4-46.3); Red Blood Count 4.96 M/uL (4.70-6.10); White Blood Count 7.83 K/ul (4.8-10.8)
[2023-09-20 06:33] LABS: Allen Test Pos (Pos); Base Excess ABG 6.9 mEq/L (-9-1.8); HCO3 ABG 33 mmol/L (19-24); Oxygen Saturation ABG 97.9 % (90-95); PCO2 ABG 52 mmHg (35-46); PO2 ABG 96 mmHg (80-95); pH ABG 7.41 (7.35-7.45)
--- NOTE | 2023-09-20 07:12 | XRay Report ---
XR chest 1V portable HISTORY: Hypoxia. COMPARISON: Chest 09/19/2023. FINDINGS: There are low lung volumes. The heart remains mildly enlarged. Small nodular groundglass ai rspace opacities within the left lung seen on the prior chest CT are not well evaluated by this modal ity. No pleural effusions. There is mild central pulmonary vascular congestion without overt edema. N o pneumothorax. IMPRESSION: Cardiomegaly and mild central pulmonary vascular congestion. ACT 112: Negative or not required by law. Electronically signed by: Vijay Wadsworth M.D. 09/20/2023 7:11 AM
[2023-09-20 07:33] LABS: Estimated Average Glucose 214 mg/dl; Hemoglobin A1C 9.1 % (4.5-5.6)
[2023-09-20] MEDS ORDERED: LABETALOL HCL IV 5 MG/ML 20ML IV STA (07:42)
--- NOTE | 2023-09-20 07:49 | Hospitalist Progress Note ---
Date of Service September 20, 2023 Assessment & Plan (1) Chest pain: (2) Abnormal chest CT: (3) Hypomagnesemia: (4) Hypertensive urgency: (5) Diabetes mellitus, type 2: (6) Depression: (7) Gastroparesis: (8) Nicotine dependence: (9) Hypoxia: Plan Atypical Chest Pain: Reproducible on exam DD: Musculoskeletal in origin secondary to bronchitis, possible costochondritis, Less likely ACS Risk factors: H/O HTN, HLP, Tobacco use disorder, DM II, Obesity Initial troponin:29.5 EKG shows: Sinus tachycardia, unchanged from prior CXR: No acute cardiopulmonary findings. No change in appearance of the chest. Check resting ECHO Trend serial cardiac enzymes, fasting lipid panel in AM Start Aspirin Given multiple risk factors, hypertensive urgency, consulted cardiology Resting Echo with moderate concentric LVH, borderline global hypokinesis, EF 50- 55% without regional wall motion abnormality or gross valvular disease EKG without acute change Cont current treatment. Acute bronchitis COVID, RSV, influenza negative Chest x-ray showed no signs of pneumonia Has hypoxia, ashanti with sleeping likely related to obesity hypoventilation in the setting of DAMION and chronic hypercapnia. Started on doxycycline Antitussives as needed Elevated D-dimer CTA showed no PE Lung nodules Incidental finding on CT --CTA:There are 2 new nodular densities within the left lung with the largest in the left lung apex measuring 1.9 cm. These favor small foci of inflammatory/infectious change. However, [address] recommended to ensure resolution. Needs follow-up CT as outpatient Mild troponin elevation Likely demand ischemia secondary to hypertensive urgency, tachycardia while in ED Outpatient Lexiscan stress test after resolution of pulmonary illness and once his BP is better controlled. DM Type II: Poorly controlled Last HbA1C: 9.3 on 08/03/23 Hold PO meds ISS, basal Insulin, Accu checks, Diabetic diet Monitor BGs HTN Hypertensive urgency Intensified his losartan and metoprolol today and added Lasix, HCTZ and nitro pa vicky. Monitor BP and adjust medications as needed Morbid obesity BMI 41 Lifestyle changes Gastroparesis Irritable bowel syndrome Continue home medications Tobacco use disorder Counseled to quit smoking Refuses nicotine patch H/O DVT Currently not on anticoagulation GERD Continue PPI DAMION-noncompliant, hypoxia and hypercapnia present currently not using any CPAP Restrictive lung disease due to obesity/chronic hypercapnia. Continue home inhalers, consult pulmonology DVT Px: Lovenox SQ Code Status Full Code I spent a total [id number] coordinating, documenting, and providing care for this patient excluding time spent in the performance of separately billed services Sunni Canseco DO [facility] Hospitalist Admission and Anticipated Discharge Date Admission Date: September 19, 2023 Subjective 47 yo M with worsening chest discomfort that was constant for 48 hours prior to admission. Hypertensive urgency with evidence of poorly controlled blood pressure on echo. Pt reports noncompliance with his CPAP at home and has chronic hypercapnea and uncontrolled DMII. He is also morbidly obese, and reports working on getting all of these things under better control. He still has slight chest pain but his BP has just now been brought down with nitro paste, Lasix, losartan and metoprolol. Seen by cardiology. Physical Exam Physical Exam: CONSTITUTIONAL: obese, vitals as above, generally well-appearing EYES: normal conjunctivae, no scleral icterus ENT: external ear and nose normal, NECK: trachea midline RESPIRATORY: clear to auscultation bilaterally, no crackles, rales or wheezes, normal respiratory effort CARDIOVASCULAR: regular rate and rhythm, S1 and 2 heard without murmurs, gallops or rubs, no JVD, no peripheral edema CHEST: inspection of chest was normal GASTROINTESTINAL: soft, nontender, ND, no guarding MUSCULOSKELETAL: strength 5/5 throughout, head is normocephalic and atraumatic, SKIN: warm and dry, NEUROLOGIC: CN 2-12 grossly intact, no sensory deficit, normal cognition, normal speech, no tremor PSYCHIATRIC: alert cooperative and oriented to person, place and time. Euthymic mood, makes good eye contact, language grossly intact, recent and remote memory grossly intact. Results & Data Results & Data Vital Signs (Past 12 Hours) Vital Signs Pulse Pulse Resp BP Pulse Ox O2 Del Method O2 Flow Rate 09/20/23 07:38 102 H 09/20/23 07:20 102 H 12 09/20/23 07:10 101 H 13 09/20/23 07:00 99 H 15 09/20/23 07:00 182/85 H 09/20/23 06:50 103 H 15 09/20/23 06:40 102 H 12 09/20/23 06:30 103 H 11 L 09/20/23 06:20 101 H 11 L 09/20/23 06:10 103 H 13 97 09/20/23 06:10 191/93 H 09/20/23 06:00 102 H 15 09/20/23 05:50 103 H 9 L 09/20/23 05:40 104 H 15 09/20/23 05:30 107 H 16 09/20/23 05:20 101 H 11 L 09/20/23 05:10 102 H 11 L 09/20/23 05:00 100 H 14 09/20/23 04:50 99 H 12 09/20/23 04:40 102 H 16 09/20/23 04:30 102 H 09/20/23 04:10 94 H 92 09/20/23 04:00 96 H 98 09/20/23 03:50 97 H 99 09/20/23 03:42 102 H 100 09/20/23 03:42 150/73 H 09/20/23 03:40 100 H 09/20/23 03:30 103 H 09/20/23 03:20 110 H 13 09/20/23 03:10 98 H 14 93 09/20/23 03:00 101 H 12 97 09/20/23 02:50 96 09/20/23 02:40 98 H 12 94 09/20/23 02:30 95 H 16 97 09/20/23 02:20 98 H 14 98 Nasal Cannula 4 09/20/23 02:10 98 H 13 98 09/20/23 02:00 98 H 14 98 09/20/23 01:50 99 H 15 97 09/20/23 01:40 98 H 19 98 09/20/23 01:30 100 H 21 98 09/20/23 01:20 99 H 18 98 09/20/23 01:10 104 H 15 98 09/20/23 01:00 102 H 13 95 09/20/23 00:50 97 H 15 98 09/20/23 00:40 98 H 12 95 09/20/23 00:30 100 H 15 97 09/20/23 00:20 98 H 12 97 09/20/23 00:10 102 H 15 97 Nasal Cannula 2 09/20/23 00:02 101 H 14 99 Nasal Cannula 2 09/20/23 00:00 103 H 14 97 09/19/23 23:50 103 H 16 98 Nasal Cannula 2 09/19/23 23:40 97 H 14 84 L Room Air 09/19/23 23:30 99 H 13 93 09/19/23 23:20 99 H 21 94 Room Air 09/19/23 23:10 101 H 18 91 09/19/23 23:00 97 H 09/19/23 23:00 15 09/19/23 22:50 18 09/19/23 22:40 11 L 09/19/23 22:30 18 09/19/23 22:20 100 H 45 H 09/19/23 22:10 13 09/19/23 22:00 14 141/90 H 09/19/23 21:50 100 H 19 09/19/23 21:40 98 H 18 09/19/23 21:30 96 H 15 09/19/23 21:20 94 H 15 09/19/23 21:10 91 H 14 09/19/23 21:00 96 H 12 09/19/23 20:50 96 H 14 09/19/23 20:40 93 H 13 97 Room Air 09/19/23 20:30 95 H 9 L 90 Room Air 09/19/23 20:20 97 H 18 93 Room Air 09/19/23 20:18 98 H 19 90 09/19/23 20:18 135/86 09/19/23 20:10 96 H 18 09/19/23 20:00 94 H 24 09/19/23 19:50 96 H 23 Laboratory Results Short CBC 09/19/23 09/20/23 Range/Units 09:47 04:32 WBC 8.06 7.83 (4.8-10.8) K/ul Hgb 13.4 L 13.3 L (14.0-18.0) g/dl Hct 41.6 L 40.5 L (42.0-52.0) % Plt Count 262 220 (130-400) K/uL BMP 09/19/23 09/20/23 09:47 04:32 Sodium 139 138 Potassium 4.1 4.0 Chloride 102 101 Carbon Dioxide 31 30 BUN 12 13 Creatinine 0.77 0.69 Glucose 177 H 162 H Calcium 9.2 8.7 Liver Function 09/19/23 09/20/23 Range/Units 09:47 04:32 Total Bilirubin 0.6 0.6 (0.2-1.0) mg/dl AST 37 57 H (13-39) U/L ALT 71 H 84 H (7-52) U/L Alkaline Phosphatase 65 64 (34-104) U/L Albumin 3.9 3.7 (3.4-5.0) gm/dl Diagnostic Findings Chest X-Ray 09/20/23 03:16 XR chest 1V portable HISTORY: Hypoxia. COMPARISON: Chest 09/19/2023. FINDINGS: There are low lung volumes. The heart remains mildly enlarged. Small nodular groundglass airspace opacities within the left lung seen on the prior chest CT are not well evaluated by this modality. No pleural effusions. There is mild central pulmonary vascular congestion without overt edema. No pneumothorax. IMPRESSION: Cardiomegaly and mild central pulmonary vascular congestion. ACT 112: Negative or not required by law. Electronically signed by: Vijay Wadsworth M.D. 09/20/2023 7:11 AM Medications Administered Current Inpatient Medications Acetaminophen (Acetaminophen 325 Mg Tab) 650 mg PO Q4H PRN PRN Reason: Pain or Fever Stop: 10/19/23 14:25 Albuterol (Albuterol Hfa 8 Gm Inhaler) 3 puffs INH Q6R [facility]OP[facility] Stop: 10/19/23 14:25 Last Admin: 09/20/23 06:32 Dose: 3 puffs Aspirin (Aspirin 81 Mg Ectab) 81 mg PO QAM [facility] Stop: 10/20/23 08:59 Cyclobenzaprine HCl (Cyclobenzaprine Hcl 10 Mg Tab) 10 mg PO HS [facility] Stop: 10/19/23 20:59 Last Admin: 09/19/23 22:47 Dose: 10 mg Dextrose (Dextrose 50% 50 Ml Syringe) 25 - 50 ml IV UD PRN; Protocol PRN Reason: Hypoglycemia Protocol Stop: 10/19/23 14:25 Dicyclomine HCl (Dicyclomine Hcl 10 Mg Cap) 10 mg PO QID PRN PRN Reason: Diarrhea Stop: 10/19/23 14:25 Docusate Sodium (Docusate Sodium 100 Mg Cap) 100 mg PO BID PRN PRN Reason: Constipation Stop: 10/19/23 14:25 Doxycycline Hyclate (Doxycycline Hyclate 100 Mg Cap) 100 mg PO BID [facility] Stop: 09/24/23 14:25 Last Admin: 09/19/23 22:47 Dose: 100 mg Enoxaparin Sodium (Enoxaparin Inj 30 Mg/0.3 Ml Syr) 30 mg SQ Q12H [facility] Stop: 10/19/23 20:59 Last Admin: 09/19/23 22:48 Dose: 30 mg Famotidine (Famotidine 20 Mg Tab) 20 mg PO HS [facility] Stop: 10/19/23 20:59 Last Admin: 09/19/23 22:46 Dose: 20 mg Fluticasone/Vilanterol (Fluticasone/Vilanterol 100/25mcg 14 Puffs/Inhaler) 1 puffs INH DAILY [facility] Stop: 10/20/23 08:59 [facility] ([facility] 100 Mg Cap) [facility] Stop: 10/20/23 08:59 Gabapentin (Gabapentin 100 Mg Cap) 200 mg PO [facility] Stop: 10/19/23 20:59 Last Admin: 09/19/23 22:47 Dose: 200 mg Glucagon (Glucagon For Inj 1 Mg Vial) 1 mg SQ UD PRN; Protocol PRN Reason: Hypoglycemia Protocol Stop: 10/19/23 14:25 Glucose (Glucose 10 Tab/Tube) 4 - 8 tab PO UD PRN; Protocol PRN Reason: Hypoglycemia Treatment Stop: 10/19/23 14:25 Glucose (Glucose 40% Gel 15 Gm Tube) 15 - 30 gm PO UD PRN; Protocol PRN Reason: Hypoglycemia Protocol Stop: 10/19/23 14:25 Guaifenesin/Dextromethorphan (Guaifenesin/Dextrom Syrup 200mg/20mg 10ml Udc) 10 ml PO Q6H PRN PRN Reason: Cough Stop: 10/19/23 14:25 Magnesium Sulfate/Dextrose (Magnesium Sulfate / D5w) 1 gm in 100 mls @ 50 mls/hr IV Q2H [facility] Stop: 09/20/23 13:44 Insulin Aspart (Insulin Aspart Per Unit Charge) 0 units SC ACHS [facility] Stop: 10/19/23 16:29 Last Admin: 09/19/23 23:02 Dose: Not Given Insulin Glargine (Lantus Per Unit Charge) 28 units SC QAM [facility] Stop: 10/20/23 08:59 Insulin Glargine (Lantus Per Unit Charge) 40 units SC HS [facility] Stop: 10/19/23 20:59 Last Admin: 09/19/23 22:58 Dose: 40 units Losartan Potassium (Losartan Potassium 50 Mg Tab) [facility] Stop: 10/20/23 08:59 Metoclopramide HCl (Metoclopramide Hcl 10 Mg Tablet) 10 mg PO TID [facility] Stop: 10/19/23 14:25 Last Admin: 09/19/23 22:47 Dose: 10 mg Metoprolol Succinate (Metoprolol Succ 25mg Ext Rel Tab) 75 mg PO QAM [facility] Stop: 10/20/23 08:59 Miscellaneous (Carbohydrates For Hypoglycemia ) 15 - 30 gm PO UD PRN PRN Reason: Hypoglycemia Protocol Stop: 10/19/23 14:25 Morphine Sulfate (Morphine Sulfate 2 Mg/Ml Carp) 2 mg IV Q6H PRN PRN Reason: Pain Stop: 10/03/23 14:24 Last Admin: 09/19/23 22:48 Dose: 2 mg Nitroglycerin (Nitroglycerin Sl 0.4 Mg/Tab Tab) 0.4 mg SL Q5M PRN PRN Reason: Chest Pain Stop: 10/19/23 14:25 Ondansetron HCl (Ondansetron Inj 2 Mg/Ml 2 Ml Vial) 4 mg IV Q6H PRN PRN Reason: Nausea Stop: 10/19/23 14:25 Pantoprazole Sodium (Pantoprazole 40 Mg Tab) 40 mg PO BID [facility] Stop: 10/19/23 20:59 Last Admin: 09/19/23 22:47 Dose: 40 mg Polyethylene Glycol (Polyethylene (Miralax) 17 Gm Pack) 17 gm PO DAILY PRN PRN Reason: Constipation Stop: 10/19/23 14:25
[2023-09-20] MEDS: ASPIRIN 81 MG ECTAB PO SCH (08:18)
[2023-09-20] MEDS: DOXYCYCLINE HYCLATE 100 MG CAP PO SCH ×2 (08:18→21:56)
[2023-09-20] MEDS: LOSARTAN POTASSIUM 50 MG TAB PO SCH (08:19)
[2023-09-20] MEDS: PANTOprazole 40 MG TAB PO SCH ×2 (08:19→22:06)
[2023-09-20] MEDS: METOCLOPRAMIDE HCL 10 MG TABLET PO SCH ×3 (08:19→21:56)
[2023-09-20] MEDS: GABAPENTIN 100 MG CAP PO SCH ×2 (08:19→21:55)
[2023-09-20] MEDS: LANTUS PER UNIT CHARGE SC SCH ×2 (08:20→21:59)
[2023-09-20] MEDS: MAGNESIUM SULFATE / D5W 1 GM/100 ML BAG IV SCH ×3 (08:20→11:33)
[2023-09-20] MEDS: INSULIN ASPART PER UNIT CHARGE SC SCH ×4 (08:21→20:44)
[2023-09-20] MEDS: ENOXAPARIN INJ 30 MG/0.3 ML SYR SQ SCH ×2 (08:30→21:56)
[2023-09-20] MEDS ORDERED: METOPROLOL SUCC 25MG EXT REL TAB PO SCH (09:00)
[2023-09-20] MEDS ORDERED: LOSARTAN POTASSIUM 50 MG TAB PO SCH (09:00)
--- NOTE | 2023-09-20 10:11 | Cardiology Consultation ---
Date of Consultation September 20, 2023 Assessment & Plan (1) COPD exacerbation: (2) Hypertensive urgency: (3) Chest pain at rest: (4) Multiple risk factors for coronary artery disease: Plan 47-year-old male admitted with acute complicated bronchitis with associated atypical chest discomfort, hypertensive urgency - Blood pressure 205/149 on presentation. - Chest discomfort constant since Wednesday, reportedly reproducible with palpation, ongoing though not reproducible on my evaluation. - High-sensitivity troponin mildly elevated as follows: 29.5 -> 27.8 -> 26.9 pg/mL. - EKG without acute change. - Resting echocardiography with moderate concentric LVH, borderline global hypokinesis, EF 50-55% without regional wall motion abnormality or gross valvular disease Treatment of the acute pulmonary exacerbation as per hospitalist. Tobacco cessation urged. Recommend intensification of antihypertensive therapies. Increase losartan to 100 mg/day. Titrate metoprolol succinate to 100 mg/day for both heart rate and blood pressure control. Add HCTZ. Two day Lexiscan nuclear stress testing after resolution of the acute pulmonary illness, and once blood pressure is controlled. Reconsider treatment of sleep apnea. Supervising Physician Co-Signing Physician Notes Patient was seen and personally examined. Complex 47-year-old male with morbid obesity hypertension and likely component of hypoventilation syndrome with recent exacerbation of symptoms secondary to recurrent upper respiratory infections. Despite medical regimen patient with significant derangement in medical issues including lipids, hemoglobin A1c, CO2 retention Plan: Assessment and recommendations as above Findings do not suggest acute coronary send Hypertension needs aggressive therapy. Metoprolol succinate increased as well as losartan. We will add topical nitrates until blood pressure controlled. Single dose of IV furosemide 20 mg given As above treatment of underlying pulmonary issues necessary including hypoventilation/sleep apnea Cardiology will follow History of Present Illness Reason for Consultation: Chest pain, hypertensive urgency Requesting Physician: Dr. Richard Attending Physician: Dr. Canseco History of Present Illness Mr. Bry Akhtar . 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 + Sick contact (girlfriend). + Tested positive for rhinovirus/enterovirus on 08/28/2023. Patient notes, "I thought I was just having a common cold." Discomfort in chest region notably reproducible with palpation on admission, suspected musculoskeletal etiology. Blood pressure significantly elevated on presentation. EKG on presentation was without acute change, revealing sinus tachycardia at 106 bpm with an incomplete right bundle branch block and a possible old anterior infarct. High-sensitivity troponin elevated as follows: 29.5 -> 27.8 -> 26.9 pg/mL. Admission chest x-ray without acute cardiopulmonary findings. 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 Cephalosporins Allergy Unknown Unknown Verified 06/03/23 07:58 empagliflozin AdvReac Unknown put me Verified 06/03/23 07:58 [From Jardiance] into ketoacidosis? NSAIDS (Non-Steroidal AdvReac Unknown use with Verified 06/03/23 07:58 Anti-Inflamma caution : hx esophagus damage Home Medications Medication Instructions Recorded Confirmed Type insulin aspart U-100 100 unit/mL 16 unit subcut TID 06/09/19 09/19/23 History (3 mL) subcutaneous pen (Novolog FlexPen U-100 Insulin aspart) dicyclomine 10 mg capsule 10 mg PO QID PRN Diarrhea 05/01/20 09/19/23 History famotidine 20 mg tablet 20 mg PO HS 07/13/20 09/19/23 History docusate sodium 100 mg capsule 100 mg PO BID PRN Constipation 02/25/21 09/19/23 History (Col-Rite) pantoprazole 40 mg tablet,delayed 40 mg PO BID 02/25/21 09/19/23 History release losartan 50 mg tablet 50 mg PO QAM 08/26/21 09/19/23 History metformin 500 mg tablet 1,000 mg PO BID 08/26/21 09/19/23 History cyclobenzaprine 10 mg tablet 10 mg PO HS muscle spasms 09/06/22 09/19/23 History gabapentin 100 mg capsule See Rx Instructions .Route .COMPLEX 09/06/22 09/19/23 History insulin glargine 100 unit/mL (3 See Rx Instructions .Route .COMPLEX 09/06/22 09/19/23 History mL) subcutaneous pen (Lantus Solostar U-100 Insulin) metoclopramide HCl 10 mg tablet 10 mg PO TID 09/06/22 09/19/23 History budesonide-formoterol HFA 80 2 puff inhalation BID 02/08/23 09/19/23 History mcg-4.5 mcg/actuation aerosol inhaler (Symbicort) metoprolol succinate 50 mg 75 mg PO QAM 02/08/23 09/19/23 History tablet,extended release 24 hr albuterol sulfate 90 mcg/actuation 3 inh inhalation Q6H #18 grams 05/23/23 09/19/23 Rx aerosol inhaler tirzepatide 2.5 mg/0.5 mL 2.5 mg subcut WK 05/26/23 09/19/23 History subcutaneous pen injector (Mounjaro) tirzepatide 15 mg/0.5 mL 15 mg subcut WK 09/19/23 09/19/23 History subcutaneous pen injector (Mounjaro) Patient History Medical History Arthritis Low magnesium level History of RSV infection & flu a few months ago. Tachycardia chronic high heart rate - unknown etiology - a few months ago increased dose of metoprolol. Rhinovirus dx May 23 [facility] & another illness dx - ? name of /antibiotic and inhalers for. feeling better: only symptom : sore throat. COPD (chronic obstructive pulmonary disease) ? dx of Peripheral neuropathy Diabetes mellitus, type 2 Hypertension Tobacco use Restrictive lung disease Elevated liver function tests History of DVT (deep vein thrombosis) "years ago">no known cause Tussive syncope "occurred only one time, no recent issues" Esophagitis Osteoarthritis Hx of pancreatitis resolved GERD (gastroesophageal reflux disease) Cardiac murmur A CHILD Erectile dysfunction MRSA (methicillin resistant Staphylococcus aureus) carrier over 2 yrs ago>"not sure where it was" Intellectual disability Obstructive sleep apnea cpap Obesity IBS (irritable bowel syndrome) History of ventricular tachycardia "nonsustained" Surgical History History of appendectomy 02/10/2023 History of reduction of nasal fracture 09/25/21-Dr. Garcia Status post incision and drainage LLE History of shoulder surgery right-2019 H/O foot surgery LEFT-2018 History of arthroscopy LEFT KNEE-1987 History of esophagogastroduodenoscopy (EGD) History of colonoscopy with most recent attempt: failed prep. Told would need a 2 day prep prior to colonoscopy in Sep 2023. History of tooth extraction History of tonsillectomy and adenoidectomy 1979 Family History Brother Family history of diabetes mellitus Environmental allergies Asthma Mother Family history of diabetes mellitus Hypertension Environmental allergies Father Family history of diabetes mellitus Hypertension Heart disease Grandfather (Paternal) Lung cancer smoker Aunt Bleeding disorder Other No family history of adverse response to anesthesia Social History Smoking Status: Current every day smoker Tobacco Type: Cigarettes Age Started Using Tobacco: 14; Cigarettes Per Day: pack and a half; Second Hand Exposure: No; Do You Dip or Chew Tobacco: No; Tobacco Cessation Education Requested by Patient: No Hx Alcohol Use: Yes Alcohol type: beer Alcohol Intake Frequency: Monthly or Less Alcohol Intake Frequency Comment: seldom, a couple times per year if that per pt Hx Substance Use: No Preferred Language: Slovak Communication Ability: Effective Metal Bonding Helper Required: No Beliefs That Will Affect Care: None marital status: / marital status details: single at this time Current Living Situation: Significant Other Current Living Situation Comment: with Ni and dog, in home, 1 JING current occupational status: employed 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 NAD. HENT: Normocephalic. Atraumatic. Eyes: PER. Conjunctiva pink, sclera clear. Neck: No carotid bruits. No JVD. Heart: Tachycardic at 100 bpm. No murmur. No rub Lungs: Clear to auscultation. Abdomen: +BS. Soft. Nontender. No masses or organomegaly. Extremities: No clubbing, cyanosis, or edema. Limited neurological examination is without focal deficits. Pulses: radial=2/4, posterior tibial=2/4. Results & Data Vital Signs (Past 12 Hours) Vital Signs Pulse Pulse Resp BP Pulse Ox O2 Del Method O2 Flow Rate 09/20/23 09:50 101 H 14 99 2 09/20/23 09:40 100 H 14 99 09/20/23 09:36 101 H 17 96 09/20/23 09:24 100 H 150/111 H 09/20/23 09:20 102 H 14 99 09/20/23 09:10 98 H 13 99 09/20/23 09:00 158/111 H 09/20/23 09:00 98 H 15 99 09/20/23 08:50 96 H 13 98 09/20/23 08:40 95 H 13 98 09/20/23 08:30 94 H 10 L 97 09/20/23 08:20 100 H 14 99 09/20/23 08:17 100 H 155/117 H 09/20/23 08:10 97 H 13 98 09/20/23 08:01 101 H 13 99 09/20/23 08:01 155/117 H 09/20/23 08:00 101 H 10 L 98 09/20/23 07:50 104 H 12 98 09/20/23 07:40 101 H 12 97 09/20/23 07:38 102 H 09/20/23 07:30 102 H 12 09/20/23 07:20 102 H 12 09/20/23 07:10 101 H 13 09/20/23 07:00 99 H 15 09/20/23 07:00 182/85 H 09/20/23 06:50 103 H 15 09/20/23 06:40 102 H 12 09/20/23 06:30 103 H 11 L 09/20/23 06:20 101 H 11 L 09/20/23 06:10 103 H 13 97 09/20/23 06:10 191/93 H 09/20/23 06:00 102 H 15 09/20/23 05:50 103 H 9 L 09/20/23 05:40 104 H 15 09/20/23 05:30 107 H 16 09/20/23 05:20 101 H 11 L 09/20/23 05:10 102 H 11 L 09/20/23 05:00 100 H 14 09/20/23 04:50 99 H 12 09/20/23 04:40 102 H 16 09/20/23 04:30 102 H 09/20/23 04:10 94 H 92 09/20/23 04:00 96 H 98 09/20/23 03:50 97 H 99 09/20/23 03:42 102 H 100 09/20/23 03:42 150/73 H 09/20/23 03:40 100 H 09/20/23 03:30 103 H 09/20/23 03:20 110 H 13 09/20/23 03:10 98 H 14 93 09/20/23 03:00 101 H 12 97 09/20/23 02:50 96 09/20/23 02:40 98 H 12 94 09/20/23 02:30 95 H 16 97 09/20/23 02:20 98 H 14 98 Nasal Cannula 4 09/20/23 02:10 98 H 13 98 09/20/23 02:00 98 H 14 98 09/20/23 01:50 99 H 15 97 09/20/23 01:40 98 H 19 98 09/20/23 01:30 100 H 21 98 09/20/23 01:20 99 H 18 98 09/20/23 01:10 104 H 15 98 09/20/23 01:00 102 H 13 95 09/20/23 00:50 97 H 15 98 09/20/23 00:40 98 H 12 95 09/20/23 00:30 100 H 15 97 09/20/23 00:20 98 H 12 97 09/20/23 00:10 102 H 15 97 Nasal Cannula 2 09/20/23 00:02 101 H 14 99 Nasal Cannula 2 09/20/23 00:00 103 H 14 97 09/19/23 23:50 103 H 16 98 Nasal Cannula 2 09/19/23 23:40 97 H 14 84 L Room Air 09/19/23 23:30 99 H 13 93 09/19/23 23:20 99 H 21 94 Room Air 09/19/23 23:10 101 H 18 91 12/03/23 23:00 97 H 09/19/23 23:00 15 09/19/23 22:50 18 09/19/23 22:40 11 L 09/19/23 22:30 18 09/19/23 22:20 100 H 45 H Laboratory Results Cardiac Enzymes 09/19/23 09/19/23 09/19/23 Range/Units 09:47 11:45 18:59 AST 37 (13-39) U/L Troponin I High Sens 29.5 H 27.8 H 26.9 H (0-20) pg/ml B-Natriuretic Peptide (0-100) pg/ml 09/20/23 Range/Units 04:32 AST 57 H (13-39) U/L Troponin I High Sens (0-20) pg/ml B-Natriuretic Peptide 49 (0-100) pg/ml Coagulation 09/20/23 Range/Units 04:32 B-Natriuretic Peptide 49 (0-100) pg/ml Lipids 09/20/23 Range/Units 04:32 Triglycerides 387 H (0-150) mg/dl Cholesterol 242 H (0-200) mg/dl HDL Cholesterol 36 mg/dl Cholesterol/HDL Ratio 6.7 H (0-5) CBC 09/19/23 09/20/23 Range/Units 09:47 04:32 WBC 8.06 7.83 (4.8-10.8) K/ul RBC 5.01 4.96 (4.70-6.10) M/uL Hgb 13.4 L 13.3 L (14.0-18.0) g/dl Hct 41.6 L 40.5 L (42.0-52.0) % Plt Count 262 220 (130-400) K/uL Neut # (Auto) 4.72 (1.40-6.50) K/uL Lymph # (Auto) 2.02 (1.20-3.40) K/uL Stanton # (Auto) 0.66 H (0.11-0.59) K/uL Eos # (Auto) 0.49 (0.00-0.50) K/uL Baso # (Auto) 0.08 (0.00-0.20) K/uL Comprehensive Metabolic Panel 09/19/23 09/20/23 Range/Units 09:47 04:32 Sodium 139 138 (136-145) mmol/L Potassium 4.1 4.0 (3.5-5.1) mmol/L Chloride 102 101 (98-107) mmol/L Carbon Dioxide 31 30 (21-32) mmol/L BUN 12 13 (6-23) mg/dl Creatinine 0.77 0.69 (0.6-1.4) mg/dl Glucose 177 H 162 H (70-99(Fasting)) mg/dl Calcium 9.2 8.7 (8.6-10.3) mg/dl AST 37 57 H (13-39) U/L ALT 71 H 84 H (7-52) U/L Alkaline Phosphatase 65 64 (34-104) U/L Total Protein 7.0 6.5 (6.0-8.3) gm/dl Albumin 3.9 3.7 (3.4-5.0) gm/dl Intake and Output 09/19/23 09/20/23 09/20/23 22:59 06:59 14:59 Intake Total 1082 / 1727.833 645.833 / 1727.833 54.167 / 54.167 Balance 1082 / 1727.833 645.833 / 1727.833 54.167 / 54.167 Intake: IV 645.833 / 645.833 54.167 / 54.167 Lactated Ringer's 1,000 ml @ 50 545.833 / 545.833 mls/hr IV .Q20H ONE Rx#: [id number] Magnesium Sulfate / D5w 1 gm In 100 / 100 54.167 / 54.167 100 ml @ 50 mls/hr IV Q2H [facility] Rx#:[id number] Oral 1082 / 1082 Other: # Unmeasured Voids 2 Weight 149.9 kg Weight Measurement Method Built in [facility] Diagnostic Findings Telemetry: Sinus/sinus tachycardia throughout
[2023-09-20] MEDS ORDERED: METOPROLOL SUCC 25MG EXT REL TAB PO ONE (10:36)
[2023-09-20] MEDS ORDERED: hydroCHLOROthiazide 25 MG TAB PO ONE (10:37)
[2023-09-20] MEDS: FLUTICASONE/VILANTEROL 100/25MCG 14 PUFFS/INHALER INH SCH (11:13)
[2023-09-20] MEDS ORDERED: FUROSEMIDE INJ 20 MG/2 ML VIAL IV ONE (11:39)
--- NOTE | 2023-09-20 12:48 | Electrocardiogram Report ---
Test Reason : Blood Pressure : / mmHG Vent. Rate : 101 BPM Atrial Rate : 101 BPM P-R Int : 148 ms QRS Dur : 092 ms QT Int : 356 ms P-R-T Axes : 063 100 070 degrees QTc Int : 461 ms Sinus tachycardia Rightward axis Incomplete right bundle branch block Septal infarct (cited on or before 19-SEP-2023) Abnormal ECG When compared with ECG of 19-SEP-2023 09:32, Questionable change in QRS axis Confirmed by George Morris ([id number]) on 09/20/2023 12:47:50 PM Referred By: REFERRED SELF Confirmed By:George Morris
[2023-09-20] MEDS: NITROGLYCERIN 2% OINTMENT 30GM TUBE EXT SCH ×2 (13:36→18:36)
[2023-09-20] MEDS: CYCLOBENZAPRINE HCL 10 MG TAB PO SCH (21:56)
[2023-09-20] MEDS: FAMOTIDINE 20 MG TAB PO SCH (22:03)
[2023-09-21] MEDS: NITROGLYCERIN 2% OINTMENT 30GM TUBE EXT SCH ×3 (00:36→13:16)
[2023-09-21] MEDS: ALBUTEROL HFA 8 GM INHALER INH SCH ×3 (01:29→13:16)
[2023-09-21 04:38] LABS: Hemoglobin 13.1 g/dl (14.0-18.0); Mean Corpuscular Hemoglobin 26.7 pg (25.0-34.0); Mean Corpuscular Hgb Conc 32.8 g/dL (32.0-36.0); Mean Corpuscular Volume 81.5 fL (80.0-100.0); Mean Platelet Volume 9.5 fL (9.4-12.4); Platelet Count 253 K/uL (130-400); RDW Coefficient of Variation 13.5 % (11.5-14.5); RDW Standard Deviation 39.4 fL (36.4-46.3); Red Blood Count 4.91 M/uL (4.70-6.10); White Blood Count 7.73 K/ul (4.8-10.8)
--- OUTSIDE RECORDS SUMMARY | 2023-09-21 04:41 | External Medical Summary | Summary of Care ---
Author Name Unknown Organization [facility] Address [address] [place] [address] Phone [phone] Care Team Providers Care Barrel Rifler Hook Name Role Phone Velasquez Valencia MD Primary Care Provider [phone]- [phone] Reason for Visit * Reason Onset Date Comments Medication Pre-auth 09/20/2023 Budesonide-F ormoterol Fumarate 80-4.5 MCG/ACT Aerosol Encounter Details Date Type Department Care Team (Late st Contact Info) Description 09/20/2023 Telephone Pulmonary Medicine Jerzy Reyes [address] [place] [place] [address] Juanjose Patel MD [address] [place] [address] Medication Pre-auth ( Budesonide-Formotero... Allergies Active Allergy Reactions Criticality Noted Date Comments Cefaclor Unknown 07/26/2018 As child Empagliflozin Other (Please comment) 05/16/2021 DKA with hospitalization documented as of this encounter (statuses as of 09/20/2023) Medications Medication Sig Dispensed Refills Start Date [...] ) 270 Tablet 1 08/03/2023 Active Mounjaro 15 MG/0.5ML Subcutaneous Solution Pen-injector (Tirzepatide)Indic ations:Type 2 diabetes mellitus with hemoglobin A1c goal of less than 7.0% (HCC) Inject 15 mg under the skin once a week. Dose increase 6 mL 4 09/15/2023 Active Budesonide-Formote rol Fumarate 80-4.5 MCG/ACT Inhalation Aerosol (Symbicort)Indicat ions:Restrictive lung disease secondary to obesity Inhale 2 Puffs by mouth in the morning and 2 Puffs before bedtime. 10.2 g 12 09/16/2023 Active Hospital, Clinic, or Other Facility Administered Medication Ordered Dose Route Frequency Start Date End Date Status Albuterol Sulfate (Proventil) (5 MG/ML) 0.5% *conc* inhalation solution 2.5 mgIndications:Chronic respiratory failure with hypercapnia (HCC) 2.5 mg NEBULIZER PRN 12/01/2022 12/01/2023 Ac tive documented as of this encounter (statuses as of 09/20/2023) Active Problems Problem Noted Date Diagnosed Date [...] as of this encounter (statuses as of 09/20/2023) Resolved Problems Problem Noted Date Diagnosed Date [...] as of this encounter (statuses as of 09/20/2023) Immunizations Name Administration Dates Next Due COVID-19 mRNA, LNP-s, No Pre serve, 2-Dose Series (Pfizer) 10/21/2021,03/01/2021,02/07/2021 H1N1 2009 Influenza, IM 11/04/2009 Pneumococcal Conjugate Vacci ne, 20-valent ([id number]) 07/09/2023 Pneumococcal Polysaccharide PPV23 (Pneumovax) 11/03/2015,02/09/2006 SEASONAL [...] as of this encounter Miscellaneous Notes * Addendum Note - Ann Martinez LPN - 09/20/2023 10:38 AM ESTAddended by: ANN MARTINEZ on: 09/20/2023 10:38 AM Modules accepted: Orders * Telephone Encounter - Ann Martinez LPN - 09/20/2023 10:36 AM EST Please sign, thanks. documented in this encounter Plan of Treatment Upcoming Encounters Date Type Department Care Team (Late st Contact Info) Description 10/13/2023 6:10 PM EST [facility] [place] [address] [address] [place], [facility] [address] [address] 12/14/2023 10:40 AM EST Office Visit Family [facility], [place] [address] [place] [phone] Velasquez Valencia MD [address] [place] [place] [address] 02/02/2024 10:00 AM EDT Procedure Only Endoscopy, Jaziel Landon [address] [place] [address] Carlota Rodriguez DO [address] [place] [address] Health Maintenance Due Date Last Done Comments [...] this encounter Medical Devices Implanted Type Area Quartz Miner Blasting Device Identifier Shelf Expiration Date Model / Serial / Lot Suture [place] Dbl Load 5.5mm - [id number] Implanted:Qty: 1 on 12/01/2019 by Judith Condon, at OR [facility] Right: Shoulder [employer] 09/16/2021 [id number] -[id number] / / [id number] documented as of this encounter Visit Diagnoses Diagnosis Restrictive lung disease secondary to obesity Other diseases of lung, not elsewhere classified documented in this encounter Advance Directives Latest [...] the patient have Health Care Power of Bulk Gas Specialist? No Care Teams Barrel Rifler Hook Relationship Specialty Start Date End Date Velasquez Valencia MD [address] [place] [address] PCP - General Family Medicine 09/09/22 documented as of this encounter
--- OUTSIDE RECORDS SUMMARY | 2023-09-21 04:41 | External Medical Summary | Summary of Care ---
Author Name Unknown Organization [facility] Address [address] [place] [address] Phone [phone] Care Team Providers Care Fuse Maker Name Role Phone Velasquez Valencia MD Primary Care Provider +1- [phone] Reason for Visit * Reason Onset Date Comments Precert In Process 09/20/2023 04 DW FAMILY SYMBICORT- Budesonide-Formoterol Fumarate 80-4.5 MCG/ACT Aerosol Encounter Details Date Type Department Care Team (Late st Contact Info) Description 09/20/2023 Telephone Pulmonary Medicine Jerzy Reyes [address] [place] [address] Juanjose Patel MD [address] [place] [address] Precert In Process ( DW FAMILY SYMBICORT... Allergies Active Allergy Reactions Criticality Noted Date [...] 6 mL 4 3 09/14/20 24 Active Symbicort 80-4.5 MCG/ACT Inhalation AerosolIndication s:Restrictive lung disease secondary to obesity Inhale 2 Puffs by mouth in the morning and 2 Puffs before bedtime. 10.2 g 12 3 Active Budesonide-Formot meeta Fumarate 80-4.5 MCG/ACT Inhalation Aerosol (Symbicort)Indica tions:Restrictive lung disease secondary to obesity Inhale 2 Puffs by mouth in the morning and 2 Puffs before bedtime. 10.2 g 12 3 09/20/20 23 Discontinu ed(Refill) Hospital, Clinic, or Other [...] IM 11/04/2009 Pneumococcal Conjugate Vacci ne, 20-valent ([id number]) 07/09/2023 Pneumococcal Polysaccharide PPV23 (Pneumovax) 11/03/2015,02/09/2006 SEASONAL [...] encounter Miscellaneous Notes * Addendum Note - Juanjose Patel MD - 09/20/2023 5:00 PM ESTAddended by: JUANJOSE PATEL on: 09/20/2023 05:00 PM Modules accepted: Orders * Telephone Encounter - Juanjose Patel MD - 09/20/2023 4:59 PM EST Signed Thank you * Addendum Note - Ann Martinez LPN - 09/20/2023 10:38 AM ESTAddended by: ANN MARTINEZ on: 09/20/2023 10:38 AM Modules accepted: Orders * Telephone Encounter - Ann Martinez LPN - 09/20/2023 10:36 AM EST Please sign, thanks. documented in this encounter Plan of Treatment Upcoming Encounters Date Type Department Care Team (Late st Contact Info) Description 10/13/2023 6:10 PM EST Pharmacy Pharmacy, [place] [address] [place] [address] [facility] [address] [place] [address] 12/14/2023 10:40 AM EST Office Visit Family [facility], [place] [address] [place] [phone] Velasquez Valencia MD [address] [place] [address] 02/02/2024 10:00 AM EDT Procedure Only Endoscopy, [facility] [address] [place] [address] Carlota Rodriguez DO [address] [place] [place] [address] Health Maintenance Due Date Last Done Comments [...] this encounter Medical Devices Implanted Type Area Food Editor Device Identifier Shelf Expiration Date Model / Serial / Lot Suture Roulette Dbl Load 5.5mm - [id number] Implanted:Qty: 1 on 12/01/2019 by Judith Condon, at OR [facility] Right: Shoulder [employer] 09/16/2021 [id number] -[id number] / / [id number] documented as of this encounter Visit Diagnoses [...] the patient have Health Care Power of Radiology Assistant? No Care Teams Fuse Maker Relationship Specialty Start Date End Date Velasquez Valencia MD [address] [facility] [place] [address] PCP - General Family Medicine 09/09/22 documented as of this encounter
--- OUTSIDE RECORDS SUMMARY | 2023-09-21 04:41 | External Medical Summary | Summary of Care ---
Author Name Unknown Organization [facility] Address [address] [place] [address] Phone [phone] Care Team Providers Care Shirt Sewer Name Role Phone Velasquez Valencia MD Primary Care Provider +1- [phone] Reason for Visit * Reason Onset Date [...] IM 11/04/2009 Pneumococcal Conjugate Vacci ne, 20-valent ([id number]) 07/09/2023 Pneumococcal Polysaccharide PPV23 (Pneumovax) 11/03/2015,02/09/2006 SEASONAL [...] Description 10/13/2023 6:10 PM EST Pharmacy Pharmacy, [place] [address] [place] [address] [facility] [address] [place] [address] 12/14/2023 10:40 AM EST Office Visit [facility] [address] [place] [address] [place] [address] Velasquez Valencia MD [address] [place] [facility] [place] [address] 02/02/2024 10:00 AM EDT Procedure Only Endoscopy, [place] [address] [place] [place] [address] Carlota Rodriguez DO [address] [place] [place] [address] Health Maintenance Due Date Last Done Comments [...] this encounter Medical Devices Implanted Type Area Mobile Home Installer Device Identifier Shelf Expiration Date Model / Serial / Lot Suture [place] Dbl Load 5.5mm - [id number] Implanted:Qty: 1 on 12/01/2019 by Judith Condon DO at OR [facility] Right: Shoulder [employer] 09/16/2021 [id number] -2 / / [id number] documented as of this encounter Advance Directives [...] the patient have Health Care Power of Tube Coremaker? No Care Teams Shirt Sewer Relationship Specialty Start Date End Date Velasquez Valencia MD [address] [place] [address] PCP - General Family Medicine 09/09/22 documented as of this encounter
--- OUTSIDE RECORDS SUMMARY | 2023-09-21 04:41 | External Medical Summary | Summary of Care ---
Author Name Unknown Organization [facility] Address [address] [place] [address] Phone [phone] Care Team Providers Care Business Development Assistant Name Role Phone Velasquez Valencia MD Primary Care Provider [phone]- [phone] Reason for Visit * Reason Onset Date [...] IM 11/04/2009 Pneumococcal Conjugate Vacci ne, 20-valent ([id number]) 07/09/2023 Pneumococcal Polysaccharide PPV23 (Pneumovax) 11/03/2015,02/09/2006 SEASONAL [...] Description 10/13/2023 6:10 PM EST Pharm[facility] Pharm[facility], [place] [address] [id number] [place], [facility] [address] [place] [address] 12/14/2023 10:40 AM EST Office Visit Family [facility], [place] [address] [facility] [place] [phone] Velasquez Valencia MD [address] [place] [facility] [place] [address] 02/02/2024 10:00 AM EDT Procedure Only Endoscopy, Jaziel Landon [address] [place] [address] Carlota Rodriguez DO [address] [place] [address] Health Maintenance Due Date Last Done Comments [...] this encounter Medical Devices Implanted Type Area Casting Repairer Device Identifier Shelf Expiration Date Model / Serial / Lot Suture [place] Dbl Load 5.5mm - [id number] Implanted:Qty: 1 on 12/01/2019 by Judith Condon, DO at [facility] Right: Shoulder [employer] 09/16/2021 [id number] / / [id number] documented as of this encounter Visit Diagnoses [...] the patient have Health Care Power of Painting Technician? No Care Teams Business Development Assistant Relationship Specialty Start Date End Date Velasquez Valencia MD [address] [place] [address] PCP - General Family Medicine 09/09/22 documented as of this encounter
[2023-09-21 04:58] LABS: Calcium 9.1 mg/dl (8.6-10.3); Creatinine Clr Calc Pharmacy 158.9 ml/min; Est GFR (African American) 116.9 ml/min; Est GFR (Non-African American) 100.9 ml/min; Magnesium 1.7 mg/dl (1.7-2.4); Potassium 3.7 mmol/L (3.5-5.1)
[2023-09-21] MEDS: ASPIRIN 81 MG ECTAB PO SCH (08:46)
[2023-09-21] MEDS: DOXYCYCLINE HYCLATE 100 MG CAP PO SCH ×2 (08:46→20:34)
[2023-09-21] MEDS: GABAPENTIN 100 MG CAP PO SCH ×2 (08:46→20:34)
[2023-09-21] MEDS: LOSARTAN POTASSIUM 50 MG TAB PO SCH (08:47)
[2023-09-21] MEDS: METOPROLOL SUCC 50MG EXT REL TAB PO SCH (08:47)
[2023-09-21] MEDS: ENOXAPARIN INJ 30 MG/0.3 ML SYR SQ SCH ×2 (08:47→20:33)
[2023-09-21] MEDS: PANTOprazole 40 MG TAB PO SCH (08:47)
--- NOTE | 2023-09-21 10:03 | Cardiology Progress Note ---
Date of Service September 21, 2023 Assessment & Plan (1) COPD exacerbation: (2) Hypertensive urgency: (3) Chest pain at rest: (4) Multiple risk factors for coronary artery disease: Plan 47-year-old male admitted with acute complicated bronchitis with associated atypical chest discomfort, hypertensive urgency, likely component of hypoventilation syndrome. - Blood pressure 205/149 on presentation. - Chest discomfort constant since Wednesday, reportedly reproducible with palpat ion, ongoing though not reproducible on my evaluation. - High-sensitivity troponin mildly elevated as follows: 29.5 -> 27.8 -> 26.9 pg/mL. - EKG without acute change. - Echocardiography with moderate concentric LVH, borderline global hypokinesis, EF 50-55% without regional wall motion abnormality or gross valvular disease RECOMMENDATIONS: - Titrate metoprolol succinate to 100 mg AM, 50 mg PM. - Add HCTZ 25 mg/day. - Add Spironolactone 25 mg/day - Wean off nitro paste as BP improves with the above. - Sleep apnea/nocturnal hypoxemia treatment - Outpatient two day Lexiscan nuclear stress testing after resolution of the acute pulmonary illness, once blood pressure is controlled. - Tobacco cessation urged. Admission and Anticipated Discharge Date Admission Date: September 19, 2023 Supervising Physician Co-Signing Physician Notes Patient was seen and personally examined. Only complaints this morning are intermittent headache. Does note oxygen levels dropped anytime napping or lying flat. No chest pains or discomfort Heart rate and blood pressure trending towards better control though still up Plan as above: We will discontinue Nitropaste in addition to current recommendations Long-term management will include multiple risk factor modifications including blood pressure, elevated glucoses, likely sleep apnea. Tobacco cessation mandated Subjective Patient seen and examined. Chart, medications, telemetry reviewed. Feels about the same. Concerned about SPO2 readings when dozing off. + Headache. Ongoing chest pain, constant. Breathing okay. No palpitations. Blood pressures improved Telemetry: Sinus/sinus tachycardia EKG this AM reveals normal sinus rhythm at 93 bpm with an incomplete right bundle branch block and a possible old septal infarct. Review of Systems Review of Systems: Complete review of systems is otherwise as stated above, negative, noncontributory Physical Exam Physical Exam: General: A&Ox3. NAD. HENT: Normocephalic. Atraumatic. Eyes: PER. Conjunctiva pink, sclera clear. Neck: No carotid bruits. No JVD. Heart: Tachycardic at 100 bpm. No murmur. No rub Lungs: Clear to auscultation. Abdomen: +BS. Soft. Nontender. No masses or organomegaly. Extremities: No clubbing, cyanosis, or edema. Limited neurological examination is without focal deficits. Pulses: radial=2/4, posterior tibial=2/4. Results & Data Vital Signs (Past 12 Hours) Vital Signs Temp Pulse Pulse Resp BP Pulse Ox O2 Del Method 09/21/23 08:28 37 C 100 H 153/82 H 95 Nasal Cannula 09/21/23 07:24 100 H 09/21/23 06:53 98 H 16 96 Nasal Cannula 09/21/23 06:00 100 H 11 L 09/21/23 05:35 97 H 09/21/23 05:30 101 H 15 09/21/23 05:00 97 H 12 09/21/23 04:30 93 H 11 L 09/21/23 04:00 95 H 18 09/21/23 03:30 96 H 30 H 96 09/21/23 03:30 94 H 12 09/21/23 03:00 97 H 10 L 09/21/23 02:30 96 H 98 09/21/23 02:00 95 H 14 97 09/21/23 01:30 94 H 19 88 L 09/21/23 01:00 88 L 09/21/23 01:00 124/72 09/21/23 00:33 93 H 15 95 09/21/23 00:33 119/53 L 09/21/23 00:32 93 H 20 95 09/21/23 00:30 92 H 14 09/21/23 00:00 93 H 17 95 09/20/23 23:30 93 H 11 L 93 09/20/23 23:00 94 H 17 95 09/20/23 22:30 94 H 22 95 O2 Flow Rate FiO2 09/21/23 08:28 3 09/21/23 07:24 09/21/23 06:53 3 09/21/23 06:00 09/21/23 05:35 09/21/23 05:30 09/21/23 05:00 09/21/23 04:30 09/21/23 04:00 12/05/23 03:30 40 09/21/23 03:30 09/21/23 03:00 09/21/23 02:30 09/21/23 02:00 09/21/23 01:30 09/21/23 01:00 09/21/23 01:00 09/21/23 00:33 09/21/23 00:33 09/21/23 00:32 09/21/23 00:30 09/21/23 00:00 09/20/23 23:30 09/20/23 23:00 09/20/23 22:30 Laboratory Results CBC 09/21/23 Range/Units 03:36 WBC 7.73 (4.8-10.8) K/ul RBC 4.91 (4.70-6.10) M/uL Hgb 13.1 L (14.0-18.0) g/dl Hct 40.0 L (42.0-52.0) % Plt Count 253 (130-400) K/uL Comprehensive Metabolic Panel 09/21/23 Range/Units 03:36 Sodium 137 (136-145) mmol/L Potassium 3.7 (3.5-5.1) mmol/L Chloride 98 (98-107) mmol/L Carbon Dioxide 30 (21-32) mmol/L BUN 15 (6-23) mg/dl Creatinine 0.88 (0.6-1.4) mg/dl Glucose 147 H (70-99(Fasting)) mg/dl Calcium 9.1 (8.6-10.3) mg/dl Intake and Output 09/20/23 09/21/23 09/21/23 22:59 06:59 14:59 Intake Total 240 / 494.167 Balance 240 / 494.167 Intake: IV 0 / 254.167 Lactated Ringer's 1,000 ml @ 50 0 / 0 mls/hr IV .Q20H ONE Rx#: [id number] Oral 240 / 240
[2023-09-21] MEDS: FLUTICASONE/VILANTEROL 100/25MCG 14 PUFFS/INHALER INH SCH (10:18)
[2023-09-21] MEDS: LANTUS PER UNIT CHARGE SC SCH ×2 (10:18→20:42)
[2023-09-21] MEDS: INSULIN ASPART PER UNIT CHARGE SC SCH ×4 (10:18→20:42)
--- NOTE | 2023-09-21 10:30 | Pulmonary Consultation ---
Date of Consultation September 21, 2023 Assessment & Plan (1) Chest pain at rest: Patient had a chest CT on admission which did not find any evidence of significant pulmonary embolism. Patient notes chest pain that was occurring at rest which is now improved. He denies any cough, sputum production or shortness of breath. He is not bronchospastic on exam. I do not see any evidence of a COPD exacerbation. I do not think there is a pulmonary etiology for his cough at this time. He would certainly benefit from outpatient PFTs to evaluate for obstructive lung disease given his smoking history. I would recommend discharging him home on a LAMA inhaler as a trial for the next 30 days. Additionally, when I walked in the room the patient was on 5 L of oxygen via nasal cannula. I discontinued the oxygen and the patient had saturations in the mid 90s on room air for several minutes. I instructed the nurse to not place the patient back on supplemental oxygen unless his O2 sats drop below 90%. (2) Multiple pulmonary nodules determined by computed tomography of lung: CT chest scan 09/19/2023 revealed 2 nodular densities in the left lung measuring up to 1.9 cm. Likely these are infectious or inflammatory given his smoking history however, malignancy is a diagnosis of exclusion. Agree with radiology's recommendation of a follow-up CT scan in 3 months. (3) Sleep apnea: Patient is noncompliant with CPAP due to intolerance of the machine. Recommend outpatient sleep medicine follow-up. Patient also at risk for obesity hypoventilation syndrome given his significantly elevated BMI of 41.3, PCO2 of 52 on admitting ABG and likely chronic hypoxia with exertion. Sleep apnea type: unspecified type Qualified Code(s): G47.30 - Sleep apnea, unspecified Plan Thank you for allowing me to participate in the care of the patient. No further recommendations at this time. I think the patient is safe for dismissal from the hospital at this time. History of Present Illness Reason for Consultation: COPD exacerbation Attending Physician: Sunni Canseco DO History of Present Illness 47-year-old male who presented to the ER 09/19/2023 due to chest pain and generalized body aches. Chest CTA completed 09/19/2023 personally reviewed by me. No evidence of pulmonary embolism, however imaging was limited due to respiratory motion artifact. There are 2 new nodular densities within the left lung with the largest in the left lung apex measuring 1.[address] was recommended in 3 months by the radiologist. Patient was started on doxycycline for the hospitalist service for "acute bronchitis". No prior PFTs to review. Patient does have an extensive tobacco use history. He also has a history of DAMION/OHS and is noncompliant with CPAP. Patient notes that he was having headache and chest pain for the past 1 to 2 days. He denies any worsening shortness of breath or cough. He does note the last night his pulse oximetry readings dropped to below 90 several times which was alarming to him. He he notes that he was previously trialed on CPAP, but felt worse after using CPAP and then discontinued its use. He is a heavy smoker and has smoked approxi-1 pack a day for the past 35 years. He denies any increasing cough, fevers, chills or night sweats. Allergies Allergy/AdvReac Type Severity Reaction Status Date / Time cefaclor [From Ceclor] Allergy Unknown childhood Verified 06/03/23 07:58 allergy ? Cephalosporins Allergy Unknown Unknown Verified 06/03/23 07:58 empagliflozin AdvReac Unknown put me Verified 06/03/23 07:58 [From Jardiance] into ketoacidosis? NSAIDS (Non-Steroidal AdvReac Unknown use with Verified 06/03/23 07:58 Anti-Inflamma caution : hx esophagus damage Home Medications Medication Instructions Recorded Confirmed Type insulin aspart U-100 100 unit/mL 16 unit subcut TID 06/09/19 09/19/23 History (3 mL) subcutaneous pen (Novolog FlexPen U-100 Insulin aspart) dicyclomine 10 mg capsule 10 mg PO QID PRN Diarrhea 05/01/20 09/19/23 History famotidine 20 mg tablet 20 mg PO HS 07/13/20 09/19/23 History docusate sodium 100 mg capsule 100 mg PO BID PRN Constipation 02/25/21 09/19/23 History (Col-Rite) pantoprazole 40 mg tablet,delayed 40 mg PO BID 02/25/21 09/19/23 History release losartan 50 mg tablet 50 mg PO QAM 08/26/21 09/19/23 History metformin 500 mg tablet 1,000 mg PO BID 08/26/21 09/19/23 History cyclobenzaprine 10 mg tablet 10 mg PO HS muscle spasms 09/06/22 09/19/23 History gabapentin 100 mg capsule See Rx Instructions .Route .COMPLEX 09/06/22 09/19/23 History insulin glargine 100 unit/mL (3 See Rx Instructions .Route .COMPLEX 09/06/22 09/19/23 History mL) subcutaneous pen (Lantus Solostar U-100 Insulin) metoclopramide HCl 10 mg tablet 10 mg PO TID 09/06/22 09/19/23 History budesonide-formoterol HFA 80 2 puff inhalation BID 02/08/23 09/19/23 History mcg-4.5 mcg/actuation aerosol inhaler (Symbicort) metoprolol succinate 50 mg 75 mg PO QAM 02/08/23 09/19/23 History tablet,extended release 24 hr albuterol sulfate 90 mcg/actuation 3 inh inhalation Q6H #18 grams 05/23/23 09/19/23 Rx aerosol inhaler tirzepatide 2.5 mg/0.5 mL 2.5 mg subcut WK 05/26/23 09/19/23 History subcutaneous pen injector (Mounjaro) tirzepatide 15 mg/0.5 mL 15 mg subcut WK 09/19/23 09/19/23 History subcutaneous pen injector (Mounjaro) Patient History Medical History (Updated 09/21/23 @ 12:51 by Gerard Andrews MD) Sleep apnea Multiple pulmonary nodules determined by computed tomography of lung Arthritis Low magnesium level History of RSV infection & flu a few months ago. Tachycardia chronic high heart rate - unknown etiology - a few months ago increased dose of metoprolol. Rhinovirus dx May 23 [facility] & another illness dx - ? name of /antibiotic and inhalers for. feeling better: only symptom : sore throat. COPD (chronic obstructive pulmonary disease) ? dx of Peripheral neuropathy Diabetes mellitus, type 2 Hypertension Tobacco use Restrictive lung disease Elevated liver function tests History of DVT (deep vein thrombosis) "years ago">no known cause Tussive syncope "occurred only one time, no recent issues" Esophagitis Osteoarthritis Hx of pancreatitis resolved GERD (gastroesophageal reflux disease) Cardiac murmur A CHILD Erectile dysfunction MRSA (methicillin resistant Staphylococcus aureus) carrier over 2 yrs ago>"not sure where it was" Intellectual disability Obstructive sleep apnea cpap Obesity IBS (irritable bowel syndrome) History of ventricular tachycardia "nonsustained" Surgical History History of appendectomy 02/10/2023 History of reduction of nasal fracture 09/25/21-Dr. Garcia Status post incision and drainage LLE History of shoulder surgery right-2019 H/O foot surgery LEFT-2018 History of arthroscopy LEFT [id number] History of esophagogastroduodenoscopy (EGD) History of colonoscopy with most recent attempt: failed prep. Told would need a 2 day prep prior to colonoscopy in Sep 2023. History of tooth extraction History of tonsillectomy and adenoidectomy 1979 Family History Brother Family history of diabetes mellitus Environmental allergies Asthma Mother Family history of diabetes mellitus Hypertension Environmental allergies Father Family history of diabetes mellitus Hypertension Heart disease Grandfather (Paternal) Lung cancer smoker Aunt Bleeding disorder Other No family history of adverse response to anesthesia Social History Smoking Status: Current every day smoker Tobacco Type: Cigarettes Age Started Using Tobacco: 14; Cigarettes Per Day: pack and a half; Second Hand Exposure: No; Do You Dip or Chew Tobacco: No; Tobacco Cessation Education Requested by Patient: No Hx Alcohol Use: Yes Alcohol type: beer Alcohol Intake Frequency: Monthly or Less Alcohol Intake Frequency Comment: seldom, a couple times per year if that per pt Hx Substance Use: No Preferred Language: Guamanian Communication Ability: Effective Door Patcher Required: No Beliefs That Will Affect Care: None marital status: / marital status details: single at this time Current Living Situation: Significant Other Current Living Situation Comment: with Ni and dog, in home, 1 JING current occupational status: employed 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 Obese appearing male in no apparent distress. Eyes: Pupils are equal round and reactive to light. Conjunctivae are normal. Anicteric sclera. Ears nose, mouth and throat: Mallampati class 3. Normal posterior oropharynx. Uvula is midline. Neck: Trachea is midline. Visual inspection is normal. Respiratory: Clear to auscultation bilaterally. No use of accessory muscles. No significant clubbing noted. Cardiovascular: Regular rate and rhythm. No murmurs. No edema. Gastrointestinal: Normal bowel sounds, soft, nontender and nondistended. No hepatosplenomegaly noted. Musculoskeletal: No cyanosis. Patient is able to move all extremities. Strength is 5 out of 5 in the upper and lower extremities. Skin: No rashes, warm dry and intact. Neurologic: No obvious focal neurological deficits seen. Psychiatric: Alert and oriented x3 with a euthymic affect. Results & Data Results & Data Vital Signs (Past 12 Hours) Vital Signs Temp Pulse Pulse Resp BP Pulse Ox O2 Del Method 09/21/23 08:28 37 C 100 H 153/82 H 95 Nasal Cannula 09/21/23 07:24 100 H 09/21/23 06:53 98 H 16 96 Nasal Cannula 09/21/23 06:00 100 H 11 L 09/21/23 05:35 97 H 09/21/23 05:30 101 H 15 09/21/23 05:00 97 H 12 09/21/23 04:30 93 H 11 L 09/21/23 04:00 95 H 18 09/21/23 03:30 96 H 30 H 96 09/21/23 03:30 94 H 12 09/21/23 03:00 97 H 10 L 09/21/23 02:30 96 H 98 09/21/23 02:00 95 H 14 97 09/21/23 01:30 94 H 19 88 L 09/21/23 01:00 88 L 09/21/23 01:00 124/72 09/21/23 00:33 93 H 15 95 09/21/23 00:33 119/53 L 09/21/23 00:32 93 H 20 95 09/21/23 00:30 92 H 14 09/21/23 00:00 93 H 17 95 09/20/23 23:30 93 H 11 L 93 09/20/23 23:00 94 H 17 95 09/20/23 22:30 94 H 22 95 O2 Flow Rate FiO2 09/21/23 08:28 3 09/21/23 07:24 09/21/23 06:53 3 09/21/23 06:00 09/21/23 05:35 09/21/23 05:30 09/21/23 05:00 09/21/23 04:30 09/21/23 04:00 09/21/23 03:30 40 09/21/23 03:30 09/21/23 03:00 09/21/23 02:30 09/21/23 02:00 09/21/23 01:30 09/21/23 01:00 09/21/23 01:00 09/21/23 00:33 09/21/23 00:33 09/21/23 00:32 09/21/23 00:30 09/21/23 00:00 09/20/23 23:30 09/20/23 23:00 09/20/23 22:30 PG Care Time/CCT Total # of Minutes Spent Total Time Spent with Patient: Total time spent is greater than 50% in coordination of care (as documented) at patient's floor/unit and/or counseling patient: Coding Level of Care Code 25168 IN/OBS CONSULT LVL 4,60M Diagnoses Chest pain at rest R07.9 Multiple pulmonary nodules determined by computed tomography of lung R91.8 Sleep apnea, unspecified type G47.30 Sleep apnea type: unspecified type
--- NOTE | 2023-09-21 10:39 | Hospitalist Progress Note ---
Date of Service September 21, 2023 Assessment & Plan (1) Chest pain: (2) Abnormal chest CT: (3) Hypomagnesemia: (4) Hypertensive urgency: (5) Diabetes mellitus, type 2: (6) Depression: (7) Gastroparesis: (8) Nicotine dependence: (9) Hypoxia: Plan Atypical Chest Pain: Musculoskeletal in origin secondary to bronchitis, possible costochondritis, Less likely ACS , possibly related to hypertensive urgency provoked by ongoing high dose Ibuprofen use at home. Risk factors: H/O HTN, HLP, Tobacco use disorder, DM II, Obesity EKG shows: Sinus tachycardia, unchanged from prior CXR: No acute cardiopulmonary findings. No change in appearance of the chest. Resting Echo with moderate concentric LVH, borderline global hypokinesis, EF 50- 55% without regional wall motion abnormality or gross valvular disease EKG without acute changes Chest pain is improving with being off the Ibuprofen and with better blood pressure control and compliance with CPAP here in the hospital. Hypertensive urgency Intensified his losartan and metoprolol today and added Lasix, HCTZ and nitro paste (stopped today) Monitor BP and adjust medications as needed-better control and symptoms are improved. Cont meds and CPAP Avoid persistent high dose NSAIDs. Acute bronchitis--ruled out COVID, RSV, influenza negative Chest x-ray showed no signs of pneumonia Has hypoxia, ashanti with sleeping likely related to obesity hypoventilation in the setting of DAMION and chronic hypercapnia. This is likey chronic Started on doxycycline, however, there are no respiratory symptoms. Stopping this now. Wean oxygen as tolerated. Elevated D-dimer CTA showed no PE Lung nodules Incidental finding on CT --CTA:There are 2 new nodular densities within the left lung with the largest in the left lung apex measuring 1.9 cm. These favor small foci of inflammatory/infectious change. However, [address] recommended to ensure resolution. Needs follow-up CT as outpatient Mild troponin elevation Likely demand ischemia secondary to hypertensive urgency, tachycardia while in ED Outpatient Lexiscan stress test after resolution of pulmonary illness and once his BP is better controlled. DM Type II: Poorly controlled Last HbA1C: 9.3 on 08/03/23 Hold PO meds ISS, basal Insulin, Accu checks, Diabetic diet Monitor BGs Morbid obesity BMI 41 Lifestyle changes Gastroparesis Irritable bowel syndrome Continue home medications Tobacco use disorder Counseled to quit smoking Refuses nicotine patch H/O DVT Currently not on anticoagulation GERD Continue PPI DAMION-noncompliant, hypoxia and hypercapnia present currently not using any CPAP Restrictive lung disease due to obesity/chronic hypercapnia. Continue home inhalers, consult pulmonology DVT Px: Lovenox SQ Code Status Full Code Dispo-home in 1-2 days pending clinical improvement. Sunni Canseco DO [facility] Hospitalist Admission and Anticipated Discharge Date Admission Date: September 21, 2023 Subjective 47 yo M with worsening chest discomfort that was constant for 48 hours prior to admission. Hypertensive urgency with evidence of poorly controlled blood pre ssure on echo. Pt reports noncompliance with his CPAP at home and has chronic hypercapnea and uncontrolled DMII. He is also morbidly obese, and reports working on getting all of these things under better control. He still has slight chest pain MCCARTY reported with the nitroglycerin paste which was removed. Physical Exam Physical Exam: CONSTITUTIONAL: obese, vitals as above, generally well-appearing EYES: normal conjunctivae, no scleral icterus ENT: external ear and nose normal, NECK: trachea midline RESPIRATORY: clear to auscultation bilaterally, no crackles, rales or wheezes, normal respiratory effort CARDIOVASCULAR: regular rate and rhythm, S1 and 2 heard without murmurs, gallops or rubs, no JVD, no peripheral edema CHEST: inspection of chest was normal GASTROINTESTINAL: soft, nontender, ND, no guarding MUSCULOSKELETAL: strength 5/5 throughout, head is normocephalic and atraumatic, SKIN: warm and dry, NEUROLOGIC: CN 2-12 grossly intact, no sensory deficit, normal cognition, normal speech, no tremor PSYCHIATRIC: alert cooperative and oriented to person, place and time. Euthymic mood, makes good eye contact, language grossly intact, recent and remote memory grossly intact. Results & Data Results & Data Vital Signs (Past 12 Hours) Vital Signs Temp Pulse Pulse Resp BP Pulse Ox O2 Del Method 09/21/23 08:28 37 C 100 H 153/82 H 95 Nasal Cannula 09/21/23 07:24 100 H 09/21/23 06:53 98 H 16 96 Nasal Cannula 09/21/23 06:00 100 H 11 L 09/21/23 05:35 97 H 09/21/23 05:30 101 H 15 09/21/23 05:00 97 H 12 09/21/23 04:30 93 H 11 L 09/21/23 04:00 95 H 18 09/21/23 03:30 96 H 30 H 96 09/21/23 03:30 94 H 12 09/21/23 03:00 97 H 10 L 09/21/23 02:30 96 H 98 09/21/23 02:00 95 H 14 97 09/21/23 01:30 94 H 19 88 L 09/21/23 01:00 88 L 09/21/23 01:00 124/72 09/21/23 00:33 93 H 15 95 09/21/23 00:33 119/53 L 09/21/23 00:32 93 H 20 95 09/21/23 00:30 92 H 14 09/21/23 00:00 93 H 17 95 09/20/23 23:30 93 H 11 L 93 09/20/23 23:00 94 H 17 95 O2 Flow Rate FiO2 09/21/23 08:28 3 09/21/23 07:24 09/21/23 06:53 3 09/21/23 06:00 09/21/23 05:35 09/21/23 05:30 09/21/23 05:00 09/21/23 04:30 09/21/23 04:00 09/21/23 03:30 40 09/21/23 03:30 09/21/23 03:00 09/21/23 02:30 09/21/23 02:00 09/21/23 01:30 09/21/23 01:00 09/21/23 01:00 09/21/23 00:33 09/21/23 00:33 09/21/23 00:32 09/21/23 00:30 09/21/23 00:00 09/20/23 23:30 09/20/23 23:00 Laboratory Results Short CBC 09/21/23 Range/Units 03:36 WBC 7.73 (4.8-10.8) K/ul Hgb 13.1 L (14.0-18.0) g/dl Hct 40.0 L (42.0-52.0) % Plt Count 253 (130-400) K/uL BMP 09/21/23 03:36 Sodium 137 Potassium 3.7 Chloride 98 Carbon Dioxide 30 BUN 15 Creatinine 0.88 Glucose 147 H Calcium 9.1 Medications Administered Current Inpatient Medications Acetaminophen (Acetaminophen 325 Mg Tab) 650 mg PO Q4H PRN PRN Reason: Pain or Fever Stop: 10/19/23 14:25 Albuterol (Albuterol Hfa 8 Gm Inhaler) 3 puffs INH Q6R [facility] Stop: 10/19/23 14:25 Last Admin: 09/21/23 06:50 Dose: 3 puffs Aspirin (Aspirin 81 Mg Ectab) 81 mg PO QAM [facility] Stop: 10/20/23 08:59 Last Admin: 09/21/23 08:46 Dose: 81 mg Cyclobenzaprine HCl (Cyclobenzaprine Hcl 10 Mg Tab) 10 mg PO HS [facility] Stop: 10/19/23 20:59 Last Admin: 09/20/23 21:56 Dose: 10 mg Dextrose (Dextrose 50% 50 Ml Syringe) 25 - 50 ml IV UD PRN; Protocol PRN Reason: Hypoglycemia Protocol Stop: 10/19/23 14:25 Dicyclomine HCl (Dicyclomine Hcl 10 Mg Cap) 10 mg PO QID PRN PRN Reason: Diarrhea Stop: 10/19/23 14:25 Docusate Sodium (Docusate Sodium 100 Mg Cap) 100 mg PO BID PRN PRN Reason: Constipation Stop: 10/19/23 14:25 Doxycycline Hyclate (Doxycycline Hyclate 100 Mg Cap) 100 mg PO BID [facility] Stop: 09/24/23 14:25 Last Admin: 09/21/23 08:46 Dose: 100 mg Enoxaparin Sodium (Enoxaparin Inj 30 Mg/0.3 Ml Syr) 30 mg SQ Q12H [facility] Stop: 10/19/23 20:59 Last Admin: 09/21/23 08:47 Dose: 30 mg Famotidine (Famotidine 20 Mg Tab) 20 mg PO HS [facility] Stop: 10/19/23 20:59 Last Admin: 09/20/23 22:03 Dose: 20 mg Fluticasone/Vilanterol (Fluticasone/Vilanterol 100/25mcg 14 Puffs/Inhaler) 1 puffs INH DAILY [facility] Stop: 10/20/23 08:59 Last Admin: 09/21/23 10:18 Dose: 1 puffs Gabapentin (Gabapentin 100 Mg Cap) 100 mg PO QAM [facility] Stop: 10/20/23 08:59 Last Admin: 09/21/23 08:46 Dose: 100 mg Gabapentin (Gabapentin 100 Mg Cap) 200 mg PO [facility] Stop: 10/19/23 20:59 Last Admin: 09/20/23 21:55 Dose: 200 mg Glucagon (Glucagon For Inj 1 Mg Vial) 1 mg SQ UD PRN; Protocol PRN Reason: Hypoglycemia Protocol Stop: 10/19/23 14:25 Glucose (Glucose 10 Tab/Tube) 4 - 8 tab PO UD PRN; Protocol PRN Reason: Hypoglycemia Treatment Stop: 10/19/23 14:25 Glucose (Glucose 40% Gel 15 Gm Tube) 15 - 30 gm PO UD PRN; Protocol PRN Reason: Hypoglycemia Protocol Stop: 10/19/23 14:25 Guaifenesin/Dextromethorphan (Guaifenesin/Dextrom Syrup 200mg/20mg 10ml Udc) 10 ml PO Q6H PRN PRN Reason: Cough Stop: 10/19/23 14:25 Hydrochlorothiazide (Hydrochlorothiazide 25 Mg Tab) 25 mg PO [facility] Stop: 10/21/23 10:14 Insulin Aspart (Insulin Aspart Per Unit Charge) 0 units SC [facility] Stop: 10/19/23 16:29 Last Admin: 09/21/23 10:18 Dose: 6 units Insulin Glargine (Lantus Per Unit Charge) 28 units SC [facility] Stop: 10/20/23 08:59 Last Admin: 09/21/23 10:18 Dose: 28 units Insulin Glargine (Lantus Per Unit Charge) 40 units SC [facility] Stop: 10/19/23 20:59 Last Admin: 09/20/23 21:59 Dose: 40 units Losartan Potassium (Losartan Potassium 50 Mg Tab) 100 mg PO [facility] Stop: 10/20/23 08:59 Last Admin: 09/21/23 08:47 Dose: 100 mg Metoclopramide HCl (Metoclopramide Hcl 10 Mg Tablet) 10 mg PO TID [facility] Stop: 10/19/23 14:25 Last Admin: 09/20/23 21:56 Dose: 10 mg Metoprolol Succinate (Metoprolol Succ 50mg Ext Rel Tab) 100 [facility] Stop: 10/21/23 08:59 Last Admin: 09/21/23 08:47 Dose: 100 mg Metoprolol Succinate (Metoprolol Succ 50mg Ext Rel Tab) 50 mg PO QPM [facility] Stop: 10/21/23 20:59 Miscellaneous (Carbohydrates For Hypoglycemia ) 15 - 30 gm PO UD PRN PRN Reason: Hypoglycemia Protocol Stop: 10/19/23 14:25 Nitroglycerin (Nitroglycerin Sl 0.4 Mg/Tab Tab) 0.4 mg SL Q5M PRN PRN Reason: Chest Pain Stop: 10/19/23 14:25 Last Admin: 09/20/23 20:19 Dose: 0.4 mg Nitroglycerin (Nitroglycerin 2% Ointment 30gm Tube) 1 inch EXT Q6 [facility] Stop: 10/20/23 11:44 Last Admin: 09/21/23 06:28 Dose: 1 inch Ondansetron HCl (Ondansetron Inj 2 Mg/Ml 2 Ml Vial) 4 mg IV Q6H PRN PRN Reason: Nausea Stop: 10/19/23 14:25 Polyethylene Glycol (Polyethylene (Miralax) 17 Gm Pack) 17 gm PO DAILY PRN PRN Reason: Constipation Stop: 10/19/23 14:25 Spironolactone (Spironolactone 25 Mg Tab) 25 mg PO QAM [facility] Stop: 10/21/23 10:14
[2023-09-21] MEDS: hydroCHLOROthiazide 25 MG TAB PO SCH (11:31)
[2023-09-21] MEDS: SPIRONOLACTONE 25 MG TAB PO SCH (11:32)
[2023-09-21] MEDS: MAGNESIUM SULFATE / D5W 1 GM/100 ML BAG IV SCH ×2 (11:32→13:49)
[2023-09-21] MEDS: METOCLOPRAMIDE HCL 10 MG TABLET PO SCH ×2 (13:16→20:36)
[2023-09-21] MEDS ORDERED: ALBUTEROL HFA 8 GM INHALER INH PRN (13:30)
--- NOTE | 2023-09-21 13:41 | Electrocardiogram Report ---
Test Reason : Blood Pressure : / mmHG Vent. Rate : 093 BPM Atrial Rate : 093 BPM P-R Int : 146 ms QRS Dur : 098 ms QT Int : 382 ms P-R-T Axes : 036 -07 048 degrees QTc Int : 474 ms Normal sinus rhythm Incomplete right bundle branch block Septal infarct (cited on or before 19-SEP-2023) Abnormal ECG When compared with ECG of 20-SEP-2023 07:52, Questionable change in QRS axis Confirmed by George Morris [id number]) on 09/21/2023 1:41:09 PM Referred By: REFERRED SELF Confirmed By:George Morirs
[2023-09-21] MEDS: CYCLOBENZAPRINE HCL 10 MG TAB PO SCH (20:34)
[2023-09-21] MEDS: FAMOTIDINE 20 MG TAB PO SCH (20:34)
[2023-09-21] MEDS ORDERED: METOPROLOL SUCC 50MG EXT REL TAB PO SCH (21:00)
[2023-09-21] MEDS ORDERED: MAGNESIUM OXIDE 400 MG TAB PO SCH (21:00)
[2023-09-22 06:46] LABS: BUN Creatinine Ratio 14.9 (10-20); Calcium 9.6 mg/dl (8.6-10.3); Creatinine Clr Calc Pharmacy 113.1 ml/min; Est GFR (Non-African American) 69.9 ml/min; Magnesium 1.9 mg/dl (1.7-2.4); Potassium 4.3 mmol/L (3.5-5.1)
[2023-09-22] MEDS: INSULIN ASPART PER UNIT CHARGE SC SCH ×2 (08:40→12:27)
[2023-09-22] MEDS: ENOXAPARIN INJ 30 MG/0.3 ML SYR SQ SCH (08:41)
[2023-09-22] MEDS: ASPIRIN 81 MG ECTAB PO SCH (08:41)
[2023-09-22] MEDS: LANTUS PER UNIT CHARGE SC SCH (08:41)
[2023-09-22] MEDS: FLUTICASONE/VILANTEROL 100/25MCG 14 PUFFS/INHALER INH SCH (08:42)
[2023-09-22] MEDS: GABAPENTIN 100 MG CAP PO SCH (08:42)
[2023-09-22] MEDS: LOSARTAN POTASSIUM 50 MG TAB PO SCH (08:43)
[2023-09-22] MEDS: METOCLOPRAMIDE HCL 10 MG TABLET PO SCH ×2 (08:43→13:48)
[2023-09-22] MEDS: hydroCHLOROthiazide 25 MG TAB PO SCH (08:43)
[2023-09-22] MEDS: METOPROLOL SUCC 50MG EXT REL TAB PO SCH (08:43)
[2023-09-22] MEDS: SPIRONOLACTONE 25 MG TAB PO SCH (08:44)
[2023-09-22] MEDS ORDERED: PANTOprazole 40 MG TAB PO SCH (09:00)
--- NOTE | 2023-09-22 09:42 | Hospitalist Progress Note ---
Date of Service September 22, 2023 Assessment & Plan (1) Chest pain: (2) Abnormal chest CT: (3) Hypomagnesemia: (4) Hypertensive urgency: (5) Diabetes mellitus, type 2: (6) Depression: (7) Gastroparesis: (8) Nicotine dependence: (9) Hypoxia: Plan Atypical Chest Pain: Musculoskeletal in origin secondary to bronchitis, possible costochondritis, Less likely ACS , possibly related to hypertensive urgency provoked by ongoing high dose Ibuprofen use at home. Risk factors: H/O HTN, HLP, Tobacco use disorder, DM II, Obesity EKG shows: Sinus tachycardia, unchanged from prior CXR: No acute cardiopulmonary findings. No change in appearance of the chest. Resting Echo with moderate concentric LVH, borderline global hypokinesis, EF 50- 55% without regional wall motion abnormality or gross valvular disease EKG without acute changes Chest pain improved with being off the Ibuprofen and with better blood pressure control and compliance with CPAP here in the hospital. Hypertensive urgency Intensified his losartan and metoprolol - and added, HCTZ, spironolactone Monitor BP and adjust medications as needed-better control and symptoms are improved. Cont meds and CPAP Avoid persistent high dose NSAIDs. Close follow up with sleep medicine needed Acute bronchitis--ruled out COVID, RSV, influenza negative Chest x-ray showed no signs of pneumonia Has hypoxia, ashanti with sleeping likely related to obesity hypoventilation in the setting of DAMION and chronic hypercapnia. This is likely chronic Started on doxycycline, however, there are no respiratory symptoms. Stopped Wean oxygen as tolerated. Elevated D-dimer CTA showed no PE Lung nodules Incidental finding on CT --CTA:There are 2 new nodular densities within the left lung with the largest in the left lung apex measuring 1.9 cm. These favor small foci of inflammatory/infectious change. However, [address] recommended to ensure resolution. Needs follow-up CT as outpatient Mild troponin elevation Likely demand ischemia secondary to hypertensive urgency, tachycardia while in ED Outpatient Lexiscan stress test after resolution of pulmonary illness and once his BP is better controlled. DM Type II: Poorly controlled Last HbA1C: 9.3 on 08/03/23 Hold PO meds while inpt ISS, basal Insulin, Accu checks, Diabetic diet Monitor BGs Morbid obesity BMI 41 Lifestyle changes recommended Gastroparesis Irritable bowel syndrome Continue home medications Tobacco use disorder Counseled to quit smoking Refuses nicotine patch H/O DVT Currently not on anticoagulation GERD Continue PPI DAMION-noncompliant, hypoxia and hypercapnia present currently not using CPAP at home Restrictive lung disease due to obesity/chronic hypercapnia. Continue home inhalers, consult pulmonology Close follow up with sleep medicine needed DVT Px: Jose E SQ Code Status Full Code Dispo- plan to DC home Admission and Anticipated Discharge Date Admission Date: September 21, 2023 Subjective 47 yo M with worsening chest discomfort that was constant for 48 hours prior to admission. Hypertensive urgency with evidence of poorly controlled blood pressure on echo. Pt reports noncompliance with his CPAP at home and has chronic hypercapnea and uncontrolled DMII. He is also morbidly obese, and reports working on getting all of these things under better control. Overall feeling much improved. Minimal chest discomfort. No shortness of breath. He is inquiring about discharge. Seen by cardiology and medications adjusted, BP much improved. Review of Systems Review of Systems: All systems reviewed & are unremarkable except as noted in Subjective Physical Exam Physical Exam: CONSTITUTIONAL: obese M in NAD EYES: normal conjunctivae, no scleral icterus ENT: external ear and nose normal, NECK: supple RESPIRATORY: clear to auscultation bilaterally, no crackles, rales or wheezes, normal respiratory effort CARDIOVASCULAR: regular rate and rhythm, S1 and 2 heard without murmurs CHEST: inspection of chest normal GASTROINTESTINAL: soft, nontender, ND, no guarding MUSCULOSKELETAL: strength 5/5 throughout, head is normocephalic and atraumatic, SKIN: warm and dry, NEURO/PSYCH : alert cooperative and oriented to person, place and time. Euthymic mood, normal speech, answers simple questions appropriately, no tremor, moves extremities Results & Data Results & Data Vital Signs (Past 12 Hours) Vital Signs Temp Pulse Pulse Resp BP BP Pulse Ox 09/22/23 08:37 37.0 C 90 20 140/83 99 09/22/23 03:00 36.7 C 94 H 18 148/88 H 100 09/22/23 02:33 89 30 H 98 09/22/23 02:24 92 H 09/21/23 23:46 91 H 33 H 97 09/21/23 22:25 36.3 C L 95 H 18 145/82 H 94 O2 Del Method FiO2 09/22/23 08:37 BiPAP 09/22/23 03:00 CPAP 09/22/23 02:33 40 09/22/23 02:24 09/21/23 23:46 40 09/21/23 22:25 Room Air Laboratory Results 09/22/23 09/22/23 09/21/23 Range/Units 08:00 05:47 20:09 Sodium 137 (136-145) mmol/L Potassium 4.3 (3.5-5.1) mmol/L Chloride 97 L (98-107) mmol/L Carbon Dioxide 32 (21-32) mmol/L Anion Gap 8 (3-11) BUN 18 (6-23) mg/dl Creatinine 1.21 D (0.6-1.4) mg/dl Est Cr Clr Drug Dosing 113.1 ml/min Est GFR ( Amer) 81.0 ml/min Est GFR (Non-Af Amer) 69.9 ml/min BUN/Creatinine Ratio 14.9 (10-20) Glucose 154 H (70-99(Fasting)) mg/dl POC Glucose 171 H 157 H (70-99) mg/dl Calcium 9.6 (8.6-10.3) mg/dl Magnesium 1.9 (1.7-2.4) mg/dl 09/21/23 09/21/23 Range/Units 17:04 11:57 Sodium (136-145) mmol/L Potassium (3.5-5.1) mmol/L Chloride (98-107) mmol/L Carbon Dioxide (21-32) mmol/L Anion Gap (3-11) BUN (6-23) mg/dl Creatinine (0.6-1.4) mg/dl Est Cr Clr Drug Dosing ml/min Est GFR ( Amer) ml/min Est GFR (Non-Af Amer) ml/min BUN/Creatinine Ratio (10-20) Glucose (70-99(Fasting)) mg/dl POC Glucose 99 158 H (70-99) mg/dl Calcium (8.6-10.3) mg/dl Magnesium (1.7-2.4) mg/dl Medications Administered Current Inpatient Medications Acetaminophen (Acetaminophen 325 Mg Tab) 650 mg PO Q4H PRN PRN Reason: Pain or Fever Stop: 10/19/23 14:25 Albuterol (Albuterol Hfa 8 Gm Inhaler) 3 puffs INH Q6R PRN PRN Reason: Wheezing Stop: 10/19/23 14:25 Aspirin (Aspirin 81 Mg Ectab) 81 mg PO QAM [facility] Stop: 10/20/23 08:59 Last Admin: 09/22/23 08:41 Dose: 81 mg Cyclobenzaprine HCl (Cyclobenzaprine Hcl 10 Mg Tab) 10 mg PO HS [facility] Stop: 10/19/23 20:59 Last Admin: 09/21/23 20:34 Dose: 10 mg Dextrose (Dextrose 50% 50 Ml Syringe) 25 - 50 ml IV UD PRN; Protocol PRN Reason: Hypoglycemia Protocol Stop: 10/19/23 14:25 Dicyclomine HCl (Dicyclomine Hcl 10 Mg Cap) 10 mg PO QID PRN PRN Reason: Diarrhea Stop: 10/19/23 14:25 Docusate Sodium (Docusate Sodium 100 Mg Cap) 100 mg PO BID PRN PRN Reason: Constipation Stop: 10/19/23 14:25 Enoxaparin Sodium (Enoxaparin Inj 30 Mg/0.3 Ml Syr) 30 mg SQ Q12H [facility] Stop: 10/19/23 20:59 Last Admin: 09/22/23 08:41 Dose: 30 mg Famotidine (Famotidine 20 Mg Tab) 20 mg PO [facility] Stop: 10/19/23 20:59 Last Admin: 09/21/23 20:34 Dose: 20 mg Fluticasone/Vilanterol (Fluticasone/Vilanterol 100/25mcg 14 Puffs/Inhaler) 1 puffs INH DAILY [facility] Stop: 10/20/23 08:59 Last Admin: 09/22/23 08:42 Dose: 1 puffs Gabapentin (Gabapentin 100 Mg Cap) 100 mg PO QAM [facility] Stop: 10/20/23 08:59 Last Admin: 09/22/23 08:42 Dose: 100 mg Gabapentin (Gabapentin 100 Mg Cap) 200 mg PO [facility] Stop: 10/19/23 20:59 Last Admin: 09/21/23 20:34 Dose: 200 mg Glucagon (Glucagon For Inj 1 Mg Vial) 1 mg SQ UD PRN; Protocol PRN Reason: Hypoglycemia Protocol Stop: 10/19/23 14:25 Glucose (Glucose 10 Tab/Tube) 4 - 8 tab PO UD PRN; Protocol PRN Reason: Hypoglycemia Treatment Stop: 10/19/23 14:25 Glucose (Glucose 40% Gel 15 Gm Tube) 15 - 30 gm PO UD PRN; Protocol PRN Reason: Hypoglycemia Protocol Stop: 10/19/23 14:25 Guaifenesin/Dextromethorphan (Guaifenesin/Dextrom Syrup 200mg/20mg 10ml Udc) 10 ml PO Q6H PRN PRN Reason: Cough Stop: 10/19/23 14:25 Hydrochlorothiazide ([facility]chlorothiazide 25 Mg Tab) [facility] Stop: 10/21/23 10:14 Last Admin: 09/22/23 08:43 Dose: 25 mg Insulin Aspart (Insulin Aspart Per Unit Charge) 0 units SC [facility] Stop: 10/19/23 16:29 Last Admin: 09/22/23 08:40 Dose: 4 units Insulin Glargine (Lantus Per Unit Charge) 28 units SC [facility] Stop: 10/20/23 08:59 Last Admin: 09/22/23 08:41 Dose: 28 units Insulin Glargine (Lantus Per Unit Charge) 40 units SC [facility] Stop: 10/19/23 20:59 Last Admin: 09/21/23 20:42 Dose: 40 units Losartan Potassium (Losartan Potassium 50 Mg Tab) [facility] Stop: 10/20/23 08:59 Last Admin: 09/22/23 08:43 Dose: 100 mg Magnesium Oxide (Magnesium Oxide 400 Mg Tab) 400 mg PO [facility] Stop: 10/21/23 20:59 Last Admin: 09/21/23 20:36 Dose: 400 mg Metoclopramide HCl (Metoclopramide Hcl 10 Mg Tablet) 10 mg PO TID [facility] Stop: 10/19/23 14:25 Last Admin: 09/22/23 08:43 Dose: 10 mg Metoprolol Succinate (Metoprolol Succ 50mg Ext Rel Tab) [facility] Stop: 10/21/23 08:59 Last Admin: 09/22/23 08:43 Dose: 100 mg Metoprolol Succinate (Metoprolol Succ 50mg Ext Rel Tab) 50 mg PO QPM [facility] Stop: 10/21/23 20:59 Last Admin: 09/21/23 20:48 Dose: 50 mg Miscellaneous (Carbohydrates For Hypoglycemia ) 15 - 30 gm PO UD PRN PRN Reason: Hypoglycemia Protocol Stop: 10/19/23 14:25 Nitroglycerin (Nitroglycerin Sl 0.4 Mg/Tab Tab) 0.4 mg SL Q5M PRN PRN Reason: Chest Pain Stop: 10/19/23 14:25 Last Admin: 09/20/23 20:19 Dose: 0.4 mg Ondansetron HCl (Ondansetron Inj 2 Mg/Ml 2 Ml Vial) 4 mg IV Q6H PRN PRN Reason: Nausea Stop: 10/19/23 14:25 Pantoprazole Sodium (Pantoprazole 40 Mg Tab) 40 mg PO DAILY [facility] Stop: 10/22/23 08:59 Last Admin: 09/22/23 08:44 Dose: 40 mg Polyethylene Glycol (Polyethylene (Miralax) 17 Gm Pack) 17 gm PO DAILY PRN PRN Reason: Constipation Stop: 10/19/23 14:25 Spironolactone (Spironolactone 25 Mg Tab) 25 mg PO QAM [facility] Stop: 10/21/23 10:14 Last Admin: 09/22/23 08:44 Dose: 25 mg
--- NOTE | 2023-09-22 11:00 | Cardiology Progress Note ---
Date of Service September 22, 2023 Assessment & Plan (1) COPD exacerbation: (2) Hypertensive urgency: (3) Chest pain at rest: (4) Multiple risk factors for coronary artery disease: Plan 47-year-old male admitted with acute complicated bronchitis with associated atypical chest discomfort, hypertensive urgency, likely component of hypoventilation syndrome. - Blood pressure 205/149 on presentation. -Constant chest discomfort constant since the Wednesday prior to arrival, report edly reproducible with palpation, improved - High-sensitivity troponin mildly elevated as follows: 29.5 -> 27.8 -> 26.9 pg/mL. - EKG without acute change. - Echocardiography with moderate concentric LVH, borderline global hypokinesis, EF 50-55% without regional wall motion abnormality or gross valvular disease RECOMMENDATIONS: - Continue the increased dose of metoprolol succinate; dosage increased from 75 mg/day to 100 mg in the morning and 50 mg in the evening this admission. - Losartan increased to 100 mg/day this admission - HCTZ 25 mg/day and spironolactone 25 mg/day added this admission. - LDL cholesterol 129 mg/deciliter on September 20, 2023. Initiate statin therapy with atorvastatin 20 mg/day. - Continue aspirin 81 mg/day - Tobacco sensation, treatment of sleep apnea/nocturnal hypoxemia, risk factor and lifestyle modification obligatory - Outpatient two day Lexiscan nuclear stress testing at [facility] Admission and Anticipated Discharge Date Admission Date: September 21, 2023 Supervising Physician Co-Signing Physician Notes Patient seen and personally examined Slow but steady improvement in hospital Multiple cardiovascular risk factors discussed in detail with patient Hypertension with hypertensive urgency, morbid obesity with hypoventilation syndrome, uncontrolled diabetes mellitus, hyperlipidemia, chronic tobacco use Discussed all in detail with patient aggressive risk factor modification necessary including mandated tobacco cessation Consider nutrition consultation given morbid obesity and Stress testing as recommended above Subjective Patient seen and examined. Chart, medications, telemetry reviewed. Feels better. Headaches have resolved. Chest pain has improved. Occasional abdominal discomfort, chronic. Blood pressures and heart rates have improved. Telemetry: Sinus in the 80s and 90s. Review of Systems Review of Systems: Complete review of systems is otherwise as stated above, negative, noncontributory Physical Exam Physical Exam: General: A&Ox3. NAD. HENT: Normocephalic. Atraumatic. Eyes: PER. Conjunctiva pink, sclera clear. Neck: No carotid bruits. No JVD. Heart: Regular rate and rhythm, 86 bpm No murmur. No rub Lungs: Clear to auscultation. Abdomen: +BS. Soft. Nontender. No masses or organomegaly. Extremities: No clubbing, cyanosis, or edema. Limited neurological examination is without focal deficits. Pulses: radial=2/4, posterior tibial=2/4. Results & Data Vital Signs (Past 12 Hours) Vital Signs Temp Pulse Pulse Resp BP BP Pulse Ox 09/22/23 10:45 09/22/23 08:37 37.0 C 90 20 140/83 99 09/22/23 03:00 36.7 C 94 H 18 148/88 H 100 09/22/23 02:33 89 30 H 98 09/22/23 02:24 92 H 09/21/23 23:46 91 H 33 H 97 O2 Del Method FiO2 09/22/23 10:45 Room Air 09/22/23 08:37 BiPAP 09/22/23 03:00 CPAP 09/22/23 02:33 40 09/22/23 02:24 09/21/23 23:46 40 Laboratory Results Comprehensive Metabolic Panel 09/22/23 Range/Units 05:47 Sodium 137 (136-145) mmol/L Potassium 4.3 (3.5-5.1) mmol/L Chloride 97 L (98-107) mmol/L Carbon Dioxide 32 (21-32) mmol/L BUN 18 (6-23) mg/dl Creatinine 1.21 D (0.6-1.4) mg/dl Glucose 154 H (70-99(Fasting)) mg/dl Calcium 9.6 (8.6-10.3) mg/dl Intake and Output 09/21/23 09/22/23 09/22/23 22:59 06:59 14:59 Intake Total 250 / 350 Output Total 800 / 800 Balance -550 / -450 Intake: IV 100 / 200 Magnesium Sulfate / D5w 1 gm In 100 / 200 100 ml @ 50 mls/hr IV Q2H SOPHIA Rx#:[id number] Oral 150 / 150 Output: Urine 800 / 800 Other: # Unmeasured Voids 1 Weight 144 kg Weight Measurement Method Built in [facility]
[2023-09-22] MEDS ORDERED: ATORVASTATIN 20 MG TAB PO SCH (11:15)
[2023-09-22 11:22] VITALS: PULSE 92; RESP 17; TEMP 98.2; O2SAT 92
--- NOTE | 2023-09-22 13:00 | Discharge Summary ---
Date of Service September 22, 2023 Admission HPI Per Admitting Provider Patient is a 47-year-old male with history of diabetes mellitus, diabetic neuropathy, morbid obesity, COPD, gastroparesis, irritable bowel syndrome, dyslipidemia, tobacco use disorder, history of DVT currently not on any anticoagulation, GERD, obstructive sleep apnea currently not using any CPAP, restrictive lung disease secondary to obesity presents with history of chest pain associated with cough, generalized body ache and headache. Patient states that his chest pain is all across the chest, dull aching type which started on Wednesday. Reports no aggravating or relieving factors. He reports cough with minimal expectoration. States having chronic diarrhea which he attributes to irritable bowel syndrome. He admits to have sick contact--his girlfriend had similar symptoms. He denies any trauma. Also denies any history of dyspnea, palpitations, dizziness, pedal edema, wheezing, hemoptysis, fever, chills, fall, head trauma, syncope, weakness, numbness, change in vision, nausea, vomiting, abdominal pain, change in appetite, dysuria, hematuria, recent change in medications. Patient outpatient records showed serology positive for enterorhinovirus on 08/28/2023. Admission Exam Per Admitting Provider General Appearance:Morbidly Obese, no apparent distress Head: normocephalic, Atraumatic Eyes: normal inspection, EOMI Neck: supple, Trachea midline Respiratory/Chest: Normal breath sounds, CTA, No accessory muscle use, + reproducible left sided chest pain Cardiovascular: S1, S2, No murmur Abdomen/GI:Soft, Non tender, Bowel sounds present Extremities/Musculoskeletal:normal inspection, no edema Neurologic/Psych:AAOX3, grossly no focal neurological deficits Skin: normal color, warm Principal Diagnosis Chest pain, hypertensive urgency Discharge Exam CONSTITUTIONAL: obese M in NAD EYES: normal conjunctivae, no scleral icterus ENT: external ear and nose normal, NECK: supple RESPIRATORY: clear to auscultation bilaterally, no crackles, rales or wheezes, normal respiratory effort CARDIOVASCULAR: regular rate and rhythm, S1 and 2 heard without murmurs CHEST: inspection of chest normal GASTROINTESTINAL: soft, nontender, ND, no guarding MUSCULOSKELETAL: strength 5/5 throughout, head is normocephalic and atraumatic, SKIN: warm and dry, NEURO/PSYCH : alert cooperative and oriented to person, place and time. Euthymic mood, normal speech, answers simple questions appropriately, no tremor, moves extremities Discharge Data Allergies Allergy/AdvReac Type Severity Reaction Status Date / Time cefaclor [From Ceclor] Allergy Unknown childhood Verified 06/03/23 07:58 allergy ? Cephalosporins Allergy Unknown Unknown Verified 06/03/23 07:58 empagliflozin AdvReac Unknown put me Verified 06/03/23 07:58 [From Jardiance] into ketoacidosis? NSAIDS (Non-Steroidal AdvReac Unknown use with Verified 06/03/23 07:58 Anti-Inflamma caution : hx esophagus damage Consultations 09/19/23 12:27 ED Decision to Admit Stat 09/20/23 07:00 Consult Cardiology Routine 09/20/23 19:44 Consult Pulmonology Routine Ordered Studies 09/19/23 14:02 CT angio chest PE protocol Urgent FINDINGS: Normal caliber thoracic aorta with no evidence for a dissection. Mild coronary artery calcifications are again noted. The heart is normal in size. No pleural or pericardial effusions. Normal caliber esophagus. No mediastinal or hilar lymphadenopathy. Nondiagnostic evaluation of the bilateral lower lobe segmental/subsegmental pulmonary arteries due to the respiratory motion artifact. However, the remaining pulmonary arteries show no filling defects to suggest a pulmonary embolus. Limited views of the upper abdomen demonstrate a normal spleen and adrenal glands. Hepatic steatosis is noted. No acute fractures. No pneumothorax. The central airways are patent. There is a new 1.9 cm groundglass nodule within the left upper lobe on image 196. There is 9 mm nodular focus in the base of the left lower lobe on image 69. This is subopt imally assessed due to motion artifact but is new from the prior study. Punctate calcified granulomas again noted within the right lower lobe. Otherwise, the right lung is clear. No evidence for pulmonary edema. IMPRESSION: 1. No evidence for a pulmonary embolus with limitations as described above. 2. There are 2 new nodular densities within the left lung with the largest in the left lung apex measuring 1.9 cm. These favor small foci of inflammatory/infectious change. However, [address] recommended to ensure resolution. ACT 112: Positive. There are findings on this exam that require communication between the performing entity and the patient following Patient Test Result Information Act ([place] Act 112) guidelines. Diabetes Follow up Diabetes Follow-up Needed for HgbA1c >9% Hospital Course (1) Chest pain: (2) Abnormal chest CT: (3) Hypomagnesemia: (4) Hypertensive urgency: (5) Diabetes mellitus, type 2: (6) Depression: (7) Gastroparesis: (8) Nicotine dependence: (9) Hypoxia: Plan Atypical Chest Pain: Musculoskeletal in origin secondary to bronchitis, possible costochondritis, Less likely ACS , possibly related to hypertensive urgency provoked by ongoing high dose Ibuprofen use at home. Risk factors: H/O HTN, HLP, Tobacco use disorder, DM II, Obesity EKG shows: Sinus tachycardia, unchanged from prior CXR: No acute cardiopulmonary findings. No change in appearance of the chest. Resting Echo with moderate concentric LVH, borderline global hypokinesis, EF 50- 55% without regional wall motion abnormality or gross valvular disease EKG without acute changes Chest pain improved with being off the Ibuprofen and with better blood pressure control and compliance with CPAP here in the hospital. Hypertensive urgency Intensified his losartan and metoprolol - and added, HCTZ, spironolactone Monitor BP and adjust medications as needed-better control and symptoms are improved. Cont meds and CPAP Avoid persistent high dose NSAIDs. Close follow up with sleep medicine needed Acute bronchitis--ruled out COVID, RSV, influenza negative Chest x-ray showed no signs of pneumonia Has hypoxia, ashanti with sleeping likely related to obesity hypoventilation in the setting of DAMION and chronic hypercapnia. This is likely chronic Started on doxycycline, however, there are no respiratory symptoms. Stopped Wean oxygen as tolerated. Elevated D-dimer CTA showed no PE Lung nodules Incidental finding on CT --CTA:There are 2 new nodular densities within the left lung with the largest in the left lung apex measuring 1.9 cm. These favor small foci of inflammatory/infectious change. However, [address] recommended to ensure resolution. Needs follow-up CT as outpatient Mild troponin elevation Likely demand ischemia secondary to hypertensive urgency, tachycardia while in ED Outpatient Lexiscan stress test after resolution of pulmonary illness and once his BP is better controlled. DM Type II: Poorly controlled Last HbA1C: 9.3 on 08/03/23 Hold PO meds while inpt ISS, basal Insulin, Accu checks, Diabetic diet Monitor BGs Morbid obesity BMI 41 Lifestyle changes recommended Gastroparesis Irritable bowel syndrome Continue home medications Tobacco use disorder Counseled to quit smoking Refuses nicotine patch H/O DVT Currently not on anticoagulation GERD Continue PPI DAMION-noncompliant, hypoxia and hypercapnia present currently not using CPAP at home Restrictive lung disease due to obesity/chronic hypercapnia. Continue home inhalers, consult pulmonology Close follow up with sleep medicine needed Total Time Total Time Spent Total Time Spent (In Minutes): 40 Discharge Plan Discharge Items Patient Disposition: Home - Self-Care Reason For Visit: CHEST PAIN Discharge Diagnosis: Chest pain, hypertensive urgency Activity: Per Instructions section Non-emergency contact: Primary Care Provider and Specialist Call non-emergency contact if: you have any medication questions and your symptoms worsen Follow-up/Referrals: Velasquez Valencia MD [Primary Care Provider] - (Date & Time 09/27/2023 11:00 AM Provider Velasquez Valencia MD [facility] ) Diet: Carb Consistent or DM2, Heart Healthy and Low Sodium (2gm) Addtl Attending Provider Instructions: Follow up with your primary care doctor and sleep/ pulmonary medicine. The appointment with your primary care doctor was scheduled for you for 09/27/2023. Your blood pressure medications were adjusted - Take metoprolol succinate 100 mg in the morning and 50 mg in the evening. Increase losartan to 100 mg daily. Start taking hydrochlorothiazide 25 mg daily and spironolactone 25 mg daily. Take atorvastatin 20 mg daily. It is recommended that you have outpatient stress test done and follow up closely with sleep medicine. It is also strongly recommended that you quit smoking. Pending Studies at Discharge: No Stand-Alone Forms: My [facility], Smoking Cessation Medications and DC Order Prescriptions: New losartan 100 mg tablet 100 mg PO DAILY Qty: 30 0RF metoprolol succinate [Toprol XL] 100 mg tablet extended release 24 hr 100 mg PO QAM Qty: 30 0RF metoprolol succinate 50 mg Tablet Extended Release 24 Hr 50 mg PO QPM Qty: 30 0RF atorvastatin 20 mg Tablet 20 mg PO QAM Qty: 30 0RF spironolactone 25 mg Tablet 25 mg PO QAM Qty: 30 0RF aspirin 81 mg Tablet,Delayed Release (Dr/Ec) 81 mg PO QAM Qty: 30 0RF hydrochlorothiazide 25 mg Tablet 25 mg PO QAM Qty: 30 0RF Continued insulin aspart U-100 [Novolog FlexPen U-100 Insulin] 100 unit/mL (3 mL) in sulin pen 16 unit subcut TID Patient Comments: 16 all the time Rx Instructions: w/meals dicyclomine 10 mg capsule 10 mg PO QID PRN (Reason: Diarrhea) famotidine 20 mg tablet 20 mg PO HS pantoprazole 40 mg tablet,delayed release (DR/EC) 40 mg PO BID docusate sodium [Col-Rite] 100 mg capsule 100 mg PO BID PRN (Reason: Constipation) metformin 500 mg tablet 1,000 mg PO BID Mounjaro 2.5 mg/0.5 mL Pen Injector 2.5 mg SUBCUT WK Patient Comments: Mondays/use to control diabetes - not for weight loss Rx Instructions: MONDAYS X 4 WKS, THEN INCREASE TO 5 MG WEEKLY. albuterol sulfate 90 mcg/actuation HFA aerosol inhaler 3 inh inhalation Q6H Qty: 18 2RF Mounjaro 15 mg/0.5 mL pen injector 15 mg SUBCUT WK cyclobenzaprine 10 mg tablet 10 mg PO HS gabapentin 100 mg capsule See Rx Instructions .ROUTE .COMPLEX Rx Instructions: TAKES 100 MG QAM, THEN 200 MG QHS. metoclopramide HCl 10 mg tablet 10 mg PO TID insulin glargine [Lantus Solostar U-100 Insulin] 100 unit/mL (3 mL) insulin pen See Rx Instructions .ROUTE .COMPLEX Rx Instructions: TAKES 28 MG QAM, THEN 40 UNITS QHS. budesonide-formoterol [Symbicort] 80-4.5 mcg/actuation HFA aerosol inhaler 2 puff INHALATION BID Discontinued losartan 50 mg tablet 50 mg PO QAM metoprolol succinate 50 mg tablet extended release 24 hr 75 mg PO QAM Discharge Orders: Discharge Order (Routine); Ordered 09/22/23 Ordered By: Maxwell Lopez/Other Patient Handouts: Managing Type 2 Diabetes Admission Data Admit Date/Time: 09/21/23 08:08 Attending Provider: Maxwell Ruiz Admit Provider: Diogenes Richard Primary Care Provider: Velasquez Valencia Other Providers: Diogenes Richard; Carlota Willson; Eugenio Salvador; Avery Gonzales; Black Mayfield; [place]; Colt Mendez; Diane Grove; Chandni Wayne; Carlota Acuna; Peter Rahman; Brian Alfaro; Aditi Moreno; Nilsa Hernandez; Erika Harris; Gamal Sánchez; Gerard Andrews; Sunni Canseco.
[2023-09-22 13:57] VITALS: BP 148/88
--- NOTE | 2023-09-22 15:54 | Electrocardiogram Report ---
Test Reason : Blood Pressure : / mmHG Vent. Rate : 093 BPM Atrial Rate : 093 BPM P-R Int : 148 ms QRS Dur : 096 ms QT Int : 380 ms P-R-T Axes : 047 100 015 degrees QTc Int : 472 ms Normal sinus rhythm Rightward axis Borderline ECG When compared with ECG of 20-SEP-2023 20:07, Incomplete right bundle branch block is no longer Present Criteria for Septal infarct are no longer Present Confirmed by George Morris [id number] on 09/22/2023 3:54:31 PM Referred By: REFERRED SELF Confirmed By:George Morris
== END 2023-09-22 16:38 | disposition home or self-care (01) | DRG 305 ==
LOC: ED 09:20 → EDINP 09:20 → SUATTDRO 12:57 → 4W 09-21 14:27
DX: R07.89 Other chest pain; K58.9 Irritable bowel syndrome, unspecified; E78.5 Hyperlipidemia, unspecified; I24.89 Other forms of acute ischemic heart disease; E66.2 Morbid (severe) obesity with alveolar hypoventilation; Z83.3 Family history of diabetes mellitus; Z86.14 Personal history of Methicillin resistant Staphylococcus aureus infection; I10 Essential (primary) hypertension; I16.0 Hypertensive urgency; Z79.4 Long term (current) use of insulin; E83.42 Hypomagnesemia; Z68.41 Body mass index [BMI] 40.0-44.9, adult; J44.0 Chronic obstructive pulmonary disease with (acute) lower respiratory infection; Z79.84 Long term (current) use of oral hypoglycemic drugs; R91.8 Other nonspecific abnormal finding of lung field; M94.0 Chondrocostal junction syndrome [Tietze]; E11.42 Type 2 diabetes mellitus with diabetic polyneuropathy; J44.1 Chronic obstructive pulmonary disease with (acute) exacerbation; E11.43 Type 2 diabetes mellitus with diabetic autonomic (poly)neuropathy

== ENCOUNTER 2023-10-15 13:56 | Inpatient (IN) ==
--- NOTE | 2023-10-15 14:20 | Emergency Department Note ---
History of Present Illness General Chief complaint: Ankle Pain Stated complaint: LT ANKLE/FOOT PAIN Time Seen by Provider: 10/15/23 14:14 History of Present Illness Maximum Pain Intensity: 8 This is a 47-year-old male that presents to the emergency department via private vehicle with complaints of "left ankle/foot pain". The patient notes that for a while now he has been experiencing left foot/medial ankle pain. No known trauma or injury. However, over the past 2 days he notes worsening pain. He notes pain overlying the plantar aspect of the left foot that then radiates medial and proximal throughout the ankle region and into the calf. It is worse with weightbearing and movement. Mildly better with rest. He denies any fevers, chills, nausea, vomiting, chest pain or shortness of breath. No headache. The patient denies any preceding infectious symptoms or current infectious symptoms. Patient denies any redness or swelling or increased warmth to the extremity. Home Medications Medication Instructions Recorded Confirmed Type insulin aspart U-100 100 unit/mL 18 unit subcut TID 06/09/19 10/15/23 History (3 mL) subcutaneous pen (Novolog FlexPen U-100 Insulin aspart) dicyclomine 10 mg capsule 10 mg PO QID PRN Diarrhea 05/01/20 10/15/23 History famotidine 20 mg tablet 20 mg PO HS 07/13/20 10/15/23 History docusate sodium 100 mg capsule 100 mg PO BID PRN Constipation 02/25/21 10/15/23 History (Col-Rite) pantoprazole 40 mg tablet,delayed 40 mg PO BID 02/25/21 10/15/23 History release metformin 500 mg tablet 1,000 mg PO BID 08/26/21 10/15/23 History cyclobenzaprine 10 mg tablet 10 mg PO HS muscle spasms 09/06/22 10/15/23 History gabapentin 100 mg capsule See Rx Instructions .Route .COMPLEX 09/06/22 10/15/23 History insulin glargine 100 unit/mL (3 See Rx Instructions .Route .COMPLEX 09/06/22 10/15/23 History mL) subcutaneous pen (Lantus Solostar U-100 Insulin) metoclopramide HCl 10 mg tablet 10 mg PO TID 09/06/22 10/15/23 History budesonide-formoterol HFA 80 2 puff inhalation BID 02/08/23 10/15/23 History mcg-4.5 mcg/actuation aerosol inhaler (Symbicort) tirzepatide 15 mg/0.5 mL 15 mg subcut WK 09/19/23 10/15/23 History subcutaneous pen injector (Shaqunnanro) aspirin 81 mg tablet,delayed 81 mg PO QAM #30 tabs 09/22/23 10/15/23 Rx release atorvastatin 20 mg tablet 20 mg PO QAM #30 tabs 09/22/23 10/15/23 Rx hydrochlorothiazide 25 mg tablet 25 mg PO QAM #30 tabs 09/22/23 10/15/23 Rx losartan 100 mg tablet 100 mg PO DAILY #30 tabs 09/22/23 10/15/23 Rx metoprolol succinate 100 mg 100 mg PO QAM #30 tabs 09/22/23 10/15/23 Rx tablet,extended release 24 hr (Toprol XL) metoprolol succinate 50 mg 50 mg PO QPM #30 tabs 09/22/23 10/15/23 Rx tablet,extended release 24 hr spironolactone 25 mg tablet 25 mg PO QAM #30 tabs 09/22/23 10/15/23 Rx albuterol sulfate 90 mcg/actuation 3 inh inhalation Q6H PRN 10/15/23 10/15/23 History aerosol inhaler WHEEZING/SOB ibuprofen 125 mg-acetaminophen 250 3 tab PO BID 10/15/23 10/15/23 History mg tablet (Dual Action Pain Reliever) Allergies Allergy/AdvReac Type Severity Reaction Status Date / Time cefaclor [From Ceclor] Allergy Unknown childhood Verified 10/15/23 19:03 allergy ? Cephalosporins Allergy Unknown Unknown Verified 10/15/23 19:03 empagliflozin AdvReac Unknown put me Verified 10/15/23 19:03 [From Jardiance] into ketoacidosis? NSAIDS (Non-Steroidal AdvReac Unknown use with Verified 10/15/23 19:03 Anti-Inflamma caution : hx esophagus damage Past Med/Surg History Medical History Sleep apnea Multiple pulmonary nodules determined by computed tomography of lung Arthritis Low magnesium level History of RSV infection & flu a few months ago. Tachycardia chronic high heart rate - unknown etiology - a few months ago increased dose of metoprolol. Rhinovirus dx May 23 [facility] & another illness dx - ? name of /antibiotic and inhalers for. feeling better: only symptom : sore throat. COPD (chronic obstructive pulmonary disease) ? dx of Peripheral neuropathy Diabetes mellitus, type 2 Hypertension Tobacco use Restrictive lung disease Elevated liver function tests History of DVT (deep vein thrombosis) "years ago">no known cause Tussive syncope "occurred only one time, no recent issues" Esophagitis Osteoarthritis Hx of pancreatitis resolved GERD (gastroesophageal reflux disease) Cardiac murmur A CHILD Erectile dysfunction MRSA (methicillin resistant Staphylococcus aureus) carrier over 2 yrs ago>"not sure where it was" Intellectual disability Obstructive sleep apnea cpap Obesity IBS (irritable bowel syndrome) History of ventricular tachycardia "nonsustained" Surgical History History of appendectomy 02/10/2023 History of reduction of nasal fracture 09/25/21-Dr. Garcia Status post incision and drainage LLE History of shoulder surgery right-2019 H/O foot surgery LEFT-2018 History of arthroscopy LEFT [id number] History of esophagogastroduodenoscopy (EGD) History of colonoscopy with most recent attempt: failed prep. Told would need a 2 day prep prior to colonoscopy in Sep 2023. History of tooth extraction History of tonsillectomy and adenoidectomy 1979 Family History Brother Family history of diabetes mellitus Environmental allergies Asthma Mother Family history of diabetes mellitus Hypertension Environmental allergies Father Family history of diabetes mellitus Hypertension Heart disease Grandfather (Paternal) Lung cancer smoker Aunt Bleeding disorder Other No family history of adverse response to anesthesia Social History Smoking Status: Current every day smoker Tobacco Type: Cigarettes Age Started Using Tobacco: 14; Cigarettes Per Day: 1 pack; Second Hand Exposure: No; Do You Dip or Chew Tobacco: No; Tobacco Cessation Education Requested by Patient: No Hx Alcohol Use: Yes Alcohol type: beer Alcohol Intake Frequency: Monthly or Less Alcohol Intake Frequency Comment: seldom, a couple times per year if that per pt Hx Substance Use: No Preferred Language: Kinyarwanda Communication Ability: Effective Supervisor Intermediates Required: No Beliefs That Will Affect Care: None marital status: / marital status details: single at this time Current Living Situation: Significant Other Current Living Situation Comment: with Ni and dog, in home, 1 JING current occupational status: employed 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 Other Information That Helps Us Care for You: No other: girlfriend able to assist with dressing changes and care as needed Feels Safe at Home: Yes Safety Concerns: Feels Safe At This Time Diet: diabetic during the past year weight has: remained stable Assistive Devices: None Review of Systems A total of 10 systems reviewed and were otherwise negative Physical Exam Vital Signs Vital Signs - 24 hr 10/15/23 14:08 10/15/23 17:05 10/15/23 19:24 Temperature 36.8 C Temperature Source Temporal Artery Scan Pulse Rate 118 H Pulse Rate [Finger] 105 H 105 H Respiratory Rate 20 14 14 Respiratory Effort / Characteristics Non-Labored Spontaneous Non-Labored Spontaneous Respiratory Depth Normal Normal Respiratory Pattern Regular Blood Pressure 102/62 Blood Pressure [Right Arm] 113/73 114/80 Blood Pressure Mean 75 Blood Pressure Mean [Right Arm] 86 91 Pulse Oximetry 94 94 95 Oxygen Delivery Method Room Air Room Air Room Air Sepsis Recent Fever Within 48 Hours No Sepsis New/Unexplained Change in Mental Status No Sepsis Action Taken by Nursing No Action Required 10/15/23 21:00 Temperature Temperature Source Pulse Rate Pulse Rate [Finger] 103 H Respiratory Rate 22 Respiratory Effort / Characteristics Non-Labored Respiratory Depth Normal Respiratory Pattern Regular Blood Pressure Blood Pressure [Right Arm] 130/82 Blood Pressure Mean Blood Pressure Mean [Right Arm] 98 Pulse Oximetry 94 Oxygen Delivery Method Room Air Sepsis Recent Fever Within 48 Hours Sepsis New/Unexplained Change in Mental Status Sepsis Action Taken by Nursing VITAL SIGNS - Vital signs and nursing notes were reviewed. Stable and afebrile. GENERAL -47-year-old male appearing his stated age who is in no acute distress. Communicates well with provider and answers questions appropriately. SKIN - Without rashes. No meningeal or petechial rash. There is perhaps mild edema circumferentially throughout the left ankle region. No erythema or break in the integument. Minimal increase of warmth in the left ankle compared to the right. HEAD - NC/AT. EYES - PERRL with EOMI bilaterally. Sclera anicteric. EARS - No deformities of external structures noted on gross examination bilaterally. NOSE - Midline and without cyanosis. No epistaxis or purulent drainage noted. MOUTH/OROPHARYNX - Without perioral cyanosis. NECK - Neck with FROM. No nuchal rigidity. LUNGS - Chest wall symmetric without accessory muscle use, intercostals retractions, or central cyanosis. Normal vesicular breath sounds CTA B/L. No wheezes, rales, or rhonchi appreciated. CARDIAC - RRR with S1/S2. No murmur, rubs, or gallops appreciated. EXTREMITIES - No clubbing or peripheral cyanosis. No pretibial edema present. Skin as above. There is tenderness throughout the plantar aspect of the left foot, medial left ankle joint extending to the left medial calf region. No palpable cord. No purulence or fluctuance. No crepitus. No open wounds. No lymphangitic streaking. No erythema. Skin as above. Left dorsalis pedis pulse within normal limits. Cap refill of all toes of the left foot within normal limits. +5/5 strength noted in UE/LE bilaterally. NEUROLOGIC - Cranial nerves II through XII grossly intact. PSYCH - A&Ox3 and cooperates fully with examiner. Pt is very pleasant and interacts well with examiner. Course Administered Medications Acetaminophen (Acetaminophen 325 Mg Tab) 650 mg PO Q4H PRN PRN Reason: pain/fever Stop: 11/14/23 23:53 Last Admin: 10/19/23 12:05 Dose: 650 mg Documented By: [facility] Admin: 10/16/23 18:04 Dose: 650 mg Documented By: ARASELI Aspirin (Aspirin 81 Mg Ectab) 81 mg PO [facility] Stop: 11/15/23 08:59 Last Admin: 10/19/23 08:59 Dose: 81 mg Documented By: [facility] Admin: 10/18/23 08:31 Dose: 81 mg Documented By: Admin: 10/17/23 08:31 Dose: 81 mg Documented By: Admin: 10/16/23 08:15 Dose: 81 mg Documented By: ARASELI Atorvastatin Calcium (Atorvastatin 20 Mg Tab) 20 mg PO [facility] Stop: 11/15/23 08:59 Last Admin: 10/19/23 09:00 Dose: 20 mg Documented By: [facility] Admin: 10/18/23 08:33 Dose: 20 mg Documented By: Admin: 10/17/23 08:31 Dose: 20 mg Documented By: Admin: 10/16/23 08:15 Dose: 20 mg Documented By: ARASELI Cyclobenzaprine HCl (Cyclobenzaprine Hcl 10 Mg Tab) 10 mg PO [facility] Stop: 11/15/23 20:59 Last Admin: 10/18/23 20:07 Dose: 10 mg Documented By: Admin: 10/17/23 19:46 Dose: 10 mg Documented By: Admin: 10/16/23 20:32 Dose: 10 mg Documented By: Admin: 10/16/23 00:30 Dose: 10 mg Documented By: VERA Dicyclomine HCl (Dicyclomine Hcl 10 Mg Cap) 10 mg PO QID PRN PRN Reason: Diarrhea Stop: 11/14/23 23:53 Last Admin: 10/19/23 09:00 Dose: 10 mg Documented By: Admin: 10/16/23 06:18 Dose: 10 mg Documented By: VERA Enoxaparin Sodium (Enoxaparin Inj 40 Mg/0.4 Ml Syr) 40 mg SQ Q24H [facility]OPHIA Stop: 11/15/23 05:59 Last Admin: 10/19/23 05:38 Dose: 40 mg Documented By: Admin: 10/18/23 05:21 Dose: 40 mg Documented By: Admin: 10/17/23 06:19 Dose: 40 mg Documented By: Admin: 10/16/23 05:31 Dose: 40 mg Documented By: VERA Famotidine (Famotidine 20 Mg Tab) 20 mg PO [facility] Stop: 11/15/23 20:59 Last Admin: 10/18/23 20:07 Dose: 20 mg Documented By: Admin: 10/17/23 19:46 Dose: 20 mg Documented By: Admin: 10/16/23 20:32 Dose: 20 mg Documented By: Admin: 10/16/23 00:30 Dose: 20 mg Documented By: VERA Fluticasone/Vilanterol (Fluticasone/Vilanterol 100/25mcg 14 Puffs/Inhaler) 1 puffs INH DAILY SOPHIA Stop: 11/15/23 08:59 Last Admin: 10/19/23 09:00 Dose: 1 puffs Documented By: [facility] Admin: 10/18/23 08:30 Dose: 1 puffs Documented By: Admin: 10/17/23 08:31 Dose: 1 puffs Documented By: Admin: 10/16/23 08:15 Dose: 1 puffs Documented By: ARASELI Gabap[facility] ([facility] 100 Mg Cap) [facility] Stop: 11/15/23 08:59 Last Admin: 10/19/23 09:00 Dose: 100 mg Documented By: Admin: 10/18/23 08:33 Dose: 100 mg Documented By: Admin: 10/17/23 08:32 Dose: 100 mg Documented By: Admin: 10/16/23 08:15 Dose: 100 mg Documented By: ARASELI Gabapentin (Gabapentin 100 Mg Cap) 200 mg PO [facility] Stop: 11/15/23 20:59 Last Admin: 10/18/23 20:07 Dose: 200 mg Documented By: Admin: 10/17/23 19:46 Dose: 200 mg Documented By: Admin: 10/16/23 20:31 Dose: 200 mg Documented By: Admin: 10/16/23 00:30 Dose: 200 mg Documented By: VERA Hydrochlorothiazide (Hydrochlorothiazide 25 Mg Tab) [facility] Stop: 11/15/23 08:59 Last Admin: 10/19/23 08:59 Dose: 25 mg Documented By: Admin: 10/18/23 08:32 Dose: 25 mg Documented By: Admin: 10/17/23 08:32 Dose: 25 mg Documented By: Admin: 10/16/23 08:15 Dose: 25 mg Documented By: ARASELI Insulin Aspart (Insulin Aspart Per Unit Charge) 0 units SC ACHS [facility] Stop: 11/15/23 00:14 Last Admin: 10/19/23 12:06 Dose: 9 units Documented By: SHEILA Co-signed By: PAOLA Admin: 10/19/23 09:05 Dose: 9 units Documented By: SHEILA Co-signed By: PAOLA Admin: 10/18/23 21:39 Dose: 1 units Documented By: MAURICIO Co-signed By: LAURYN Admin: 10/18/23 17:23 Dose: 7 units Documented By: PARIS Co-signed By: PAOLA Admin: 10/18/23 12:43 Dose: 13 units Documented By: PARIS Co-signed By: PAOLA Admin: 10/18/23 08:42 Dose: 10 units Documented By: CMV Co-signed By: PAOLA Admin: 10/17/23 21:23 Dose: Not Given Documented By: Admin: 10/17/23 17:22 Dose: 10 units Documented By: ARASELI Co-signed By: PAOLA Admin: 10/17/23 12:29 Dose: 9 units Documented By: ARASELI Co-signed By: GOYO Admin: 10/17/23 08:34 Dose: 9 units Documented By: ARASELI Co-signed By: PAOLA Admin: 10/16/23 20:37 Dose: 12 units Documented By: EGS Co-signed By: MICHEAL Admin: 10/16/23 17:17 Dose: 5 units Documented By: ARASELI Co-signed By: PAOLA Admin: 10/16/23 12:16 Dose: 7 units Documented By: ARASELI Co-signed By: GOYO Admin: 10/16/23 08:18 Dose: 8 units Documented By: ARASELI Co-signed By: PAOLA Admin: 10/16/23 00:24 Dose: 14 units Documented By: VERA Co-signed By: FATEMEH Insulin Glargine (Lantus Per Unit Charge) 30 units SC QAM [facility] Stop: 11/15/23 08:59 Last Admin: 10/19/23 09:06 Dose: 30 units Documented By: SHEILA Co-signed By: PAOLA Admin: 10/18/23 08:41 Dose: 30 units Documented By: PARIS Co-signed By: PAOLA Admin: 10/17/23 08:34 Dose: 30 units Documented By: ARASELI Co-signed By: PAOLA Admin: 10/16/23 08:18 Dose: 30 units Documented By: ARASELI Co-signed By: PAOLA Insulin Glargine (Lantus Per Unit Charge) 40 units SQ HS [facility]OPHIA Stop: 11/15/23 00:14 Last Admin: 10/18/23 21:39 Dose: 40 units Documented By: MAURICIO Co-signed By: SG Admin: 10/17/23 21:28 Dose: 40 units Documented By: MAURICIO Co-signed By: JONATHAN Admin: 10/16/23 20:37 Dose: 40 units Documented By: VERA Co-signed By: MICHEAL Admin: 10/16/23 00:24 Dose: 40 units Documented By: EGAshley Co-signed By: FATEMEH Losartan Potassium (Losartan Potassium 50 Mg Tab) 100 mg PO DAILY [facility]OP[facility]IA Stop: 11/15/23 08:59 Last Admin: 10/19/23 08:59 Dose: 100 mg Documented By: [facility] Admin: 10/18/23 08:31 Dose: 100 mg Documented By: Admin: 10/17/23 08:32 Dose: 100 mg Documented By: Admin: 10/16/23 08:16 Dose: 100 mg Documented By: ARASELI Metoclopramide HCl (Metoclopramide Hcl 10 Mg Tablet) 10 mg PO AC [facility]OP[facility]IA Stop: 11/15/23 07:29 Last Admin: 10/19/23 12:00 Dose: 10 mg Documented By: [facility] Admin: 10/19/23 08:59 Dose: 10 mg Documented By: [facility] Admin: 10/18/23 17:21 Dose: 10 mg Documented By: Admin: 10/18/23 11:18 Dose: 10 mg Documented By: Admin: 10/18/23 08:33 Dose: 10 mg Documented By: Admin: 10/17/23 17:22 Dose: 10 mg Documented By: Admin: 10/17/23 12:28 Dose: 10 mg Documented By: Admin: 10/17/23 08:31 Dose: 10 mg Documented By: Admin: 10/16/23 17:09 Dose: 10 mg Documented By: Admin: 10/16/23 12:16 Dose: 10 mg Documented By: Admin: 10/16/23 08:15 Dose: 10 mg Documented By: ARASELI Metoprolol Succinate (Metoprolol Succ 50mg Ext Rel Tab) 100 mg PO QAM [facility] Stop: 11/15/23 08:59 Last Admin: 10/19/23 08:59 Dose: 100 mg Documented By: [facility] Admin: 10/18/23 08:31 Dose: 100 mg Documented By: Admin: 10/17/23 08:32 Dose: 100 mg Documented By: Admin: 10/16/23 08:16 Dose: 100 mg Documented By: ARASELI Metoprolol Succinate (Metoprolol Succ 50mg Ext Rel Tab) 50 mg PO QPM [facility] Stop: 11/15/23 20:59 Last Admin: 10/18/23 20:07 Dose: 50 mg Documented By: Admin: 10/17/23 19:45 Dose: 50 mg Documented By: Admin: 10/16/23 20:31 Dose: 50 mg Documented By: Admin: 10/16/23 00:30 Dose: 50 mg Documented By: VERA Oxycodone HCl (Oxycodone Hcl Ir 5 Mg Tab (Immediate Release)) 5 mg PO Q6H PRN PRN Reason: Mod-Sev Pain (Scale 4-10) Stop: 10/29/23 23:53 Last Admin: 10/18/23 19:36 Dose: 5 mg Documented By: Admin: 10/18/23 11:17 Dose: 5 mg Documented By: Admin: 10/17/23 19:40 Dose: 5 mg Documented By: Admin: 10/17/23 12:34 Dose: 5 mg Documented By: Admin: 10/17/23 03:28 Dose: 5 mg Documented By: Admin: 10/16/23 20:31 Dose: 5 mg Documented By: Admin: 10/16/23 14:26 Dose: 5 mg Documented By: Admin: 10/16/23 00:29 Dose: 5 mg Documented By: VERA Pantoprazole Sodium (Pantoprazole 40 Mg Tab) 40 mg PO BID [facility] Stop: 11/15/23 08:59 Last Admin: 10/19/23 08:59 Dose: 40 mg Documented By: [facility] Admin: 10/18/23 20:07 Dose: 40 mg Documented By: Admin: 10/18/23 08:31 Dose: 40 mg Documented By: Admin: 10/17/23 19:46 Dose: 40 mg Documented By: Admin: 10/17/23 08:32 Dose: 40 mg Documented By: Admin: 10/16/23 20:31 Dose: 40 mg Documented By: Admin: 10/16/23 08:16 Dose: 40 mg Documented By: Admin: 10/16/23 00:30 Dose: 40 mg Documented By: VERA Senna/Docusate Sodium (Docusate Sodium/Senna 50/8.6mg Tab) [facility] Stop: 11/18/23 10:14 Last Admin: 10/19/23 12:02 Dose: 1 tab Documented By: [facility] Spironolactone (Spironolactone 25 Mg Tab) [facility] Stop: 11/15/23 08:59 Last Admin: 10/19/23 09:00 Dose: 25 mg Documented By: Admin: 10/18/23 08:32 Dose: 25 mg Documented By: Admin: 10/17/23 08:32 Dose: 25 mg Documented By: Admin: 10/16/23 08:16 Dose: 25 mg Documented By: ARASELI Discontinued Medications Sodium Chloride (Nss) 1,000 mls @ 999 mls/hr IV .Q1H1M [facility] Stop: 10/15/23 18:00 Last Infusion: 10/15/23 18:04 Dose: Infused Documented By: Admin: 10/15/23 17:03 Dose: 999 mls/hr Documented By: JAMARCUS Magnesium Sulfate/Dextrose (Magnesium Sulfate / D5w) 1 gm in 100 mls @ 50 mls/hr IV Q2H [facility]OP[facility]IA Stop: 10/16/23 14:44 Last Infusion: 10/16/23 14:49 Dose: Infused Documented By: Admin: 10/16/23 12:45 Dose: 50 mls/hr Documented By: Infusion: 10/16/23 12:45 Dose: Infused Documented By: Infusion: 10/16/23 11:05 Dose: 50 mls/hr Documented By: Infusion: 10/16/23 10:55 Dose: 0 mls/hr Documented By: Admin: 10/16/23 10:45 Dose: 50 mls/hr Documented By: ARASELI Ioversol (Optiray 320 125ml) 119 ml IV ONCE ONE Stop: 10/19/23 09:35 Last Admin: 10/19/23 09:30 Dose: 119 ml Documented By: ANDRY Morphine Sulfate (Morphine Sulfate 4 Mg/Ml 1 Ml Carp\\Vial) 4 mg IV NOW STA Stop: 10/15/23 18:32 Last Admin: 10/15/23 18:57 Dose: 4 mg Documented By: JAMARCUS Ondansetron HCl (Ondansetron Inj 2 Mg/Ml 2 Ml Vial) 4 mg IV NOW STA Stop: 10/15/23 18:32 Last Admin: 10/15/23 18:57 Dose: 4 mg Documented By: JAMARCUS Oxycodone HCl (Oxycodone Hcl Ir 5 Mg Tab (Immediate Release)) 5 mg PO NOW STA Stop: 10/15/23 14:22 Last Admin: 10/15/23 15:13 Dose: 5 mg Documented By: MICHELLE Medical Decision Making Laboratory Data 10/18/23 08:15 10/19/23 09:12 Lab Results 10/15/23 Range/Units Unknown WBC 8.81 (4.8-10.8) K/ul RBC 5.17 (4.70-6.10) M/uL Hgb 14.1 (14.0-18.0) g/dl Hct 41.8 L (42.0-52.0) % MCV 80.9 (80.0-100.0) fL MCH 27.3 (25.0-34.0) pg MCHC 33.7 (32.0-36.0) g/dL RDW Std Deviation 40.1 (36.4-46.3) fL RDW Coeff of Abiodun 13.7 (11.5-14.5) % Plt Count 219 (130-400) K/uL MPV 9.5 (9.4-12.4) fL Immature Gran % (Auto) 0.9 % Neut % (Auto) 55.5 % Lymph % (Auto) 28.3 % [place] % (Auto) 9.0 % Eos % (Auto) 5.4 % Baso % (Auto) 0.9 % Neut # (Auto) 4.89 (1.40-6.50) K/uL Lymph # (Auto) 2.49 (1.20-3.40) K/uL [place] # (Auto) 0.79 H (0.11-0.59) K/uL Eos # (Auto) 0.48 (0.00-0.50) K/uL Baso # (Auto) 0.08 (0.00-0.20) K/uL Immature Gran # (Auto) 0.08 (0.01-0.20) K/uL Sodium 139 (136-145) mmol/L Potassium 4.5 (3.5-5.1) mmol/L Chloride 103 (98-107) mmol/L Carbon Dioxide 28 (21-32) mmol/L Anion Gap 8 (3-11) BUN 27 H (6-23) mg/dl Creatinine 1.09 (0.6-1.4) mg/dl Est Cr Clr Drug Dosing 121.1 ml/min Est GFR ( Amer) 91.9 ml/min Est GFR (Non-Af Amer) 79.3 ml/min BUN/Creatinine Ratio 24.8 H (10-20) Glucose 185 H (70-99(Fasting)) mg/dl Uric Acid 6.7 (2.6-7.2) mg/dl Calcium 9.2 (8.6-10.3) mg/dl Total Bilirubin 0.5 (0.2-1.0) mg/dl AST 41 H (13-39) U/L ALT 65 H (7-52) U/L Alkaline Phosphatase 62 (34-104) U/L Total Protein 7.1 (6.0-8.3) gm/dl Albumin 3.9 (3.4-5.0) gm/dl Globulin 3.2 (2.5-4.0) gm/dl Albumin/Globulin Ratio 1.2 (0.9-2) Lyme Disease IgG Ab Negative (Negative) Lyme Disease IgM Ab Negative (Negative) Imaging Data Radiologist's Impression: Venous Doppler Study 10/15/23 14:21 LEFT LOWER EXTREMITY VENOUS DOPPLER HISTORY: Acute pain and swelling of the left lower leg L foot, ankle and L calf pain, atraumatic COMPARISON STUDY: 07/29/2018 FINDINGS: There is normal compressibility, flow, and augmentation within the left lower extremity deep venous system. IMPRESSION: No DVT within the left lower extremity. ACT 112: Negative or not required by law. Electronically signed by: Gil Hilliard M.D. 10/15/2023 3:56 PM Ankle X-Ray 10/15/23 16:58 XR ankle LT min 3V routine, XR foot LT min 3V routine CLINICAL HISTORY: L foot, ankle and L calf pain, atraumatic TECHNIQUE: 3 views of the left ankle and 3 views of the left foot were obtained. Comparison: None available at the time of this dictation. FINDINGS: There is a angulated fracture of the calcaneus. Well-corticated density adjacent to the navicular bone likely represents an os navicularis. The joint spaces are well preserved. The ankle mortise is intact. Soft tissue swelling is seen about the ankle. IMPRESSION: There is an angulated fracture of the calcaneus with associated soft tissue swelling. ACT 112: Negative or not required by law. Electronically signed by: Jovanni Burris M.D. 10/15/2023 6:07 PM Foot X-Ray 10/15/23 16:58 XR ankle LT min 3V routine, XR foot LT min 3V routine CLINICAL HISTORY: L foot, ankle and L calf pain, atraumatic TECHNIQUE: 3 views of the left ankle and 3 views of the left foot were obtained. Comparison: None available at the time of this dictation. FINDINGS: There is a angulated fracture of the calcaneus. Well-corticated density adjacent to the navicular bone likely represents an os navicularis. The joint spaces are well preserved. The ankle mortise is intact. Soft tissue swelling is seen about the ankle. IMPRESSION: There is an angulated fracture of the calcaneus with associated soft tissue swelling. ACT 112: Negative or not required by law. Electronically signed by: Jovanni Burris M.D. 10/15/2023 6:07 PM Ankle MRI 10/15/23 18:31 Exam(s): MRI LEFT ANKLE Without Contrast EXAM: MR Left Lower Extremity Without Intravenous Contrast, Ankle CLINICAL HISTORY: Reason for exam: atraumatic ankle pain, fracture, tachycardia. TECHNIQUE: Multiplanar magnetic resonance images of the left ankle without intravenous contrast. COMPARISON: Left ankle radiographs 10/15/23 FINDINGS: Syndesmotic ligaments are intact. Anterior talofibular ligament and posterior talofibular ligament are intact. Thickening of the calcaneofibular ligament is consistent with chronic sprain. Deltoid ligament is intact, with increased intrasubstance signal suggesting old injury. There is abnormal curvilinear signal and cystic changes within the talus, with surrounding marrow changes. Findings may reflect osteonecrosis of the talus. There is an associated chronic mid-talar fracture extending to the central talar dome with articular surface irregularity. There is secondary osteoarthritic change of the tibiotalar joint. There is a moderate joint effusion with synovitis. There is subtalar joint degeneration. Marrow signal changes within the calcaneus are likely on a degenerative basis. There is no evidence of acute fracture or dislocation. Achilles tendon and plantar aponeurosis are intact. There is a short segment longitudinal split tear of the peroneus brevis tendon. Peroneus longus tendon is intact. Medial flexor tendons and anterior extensor tendons are intact. There is edema within the flexor hallucis longus muscle. IMPRESSION: 1. Findings suggestive of osteonecrosis of the talus with chronic mid- body fracture disrupting the articular surface. Secondary osteoarthritic changes of the tibiotalar joint. Moderate joint effusion with synovitis. 2. Subtalar joint degeneration with degenerative marrow signal in the calcaneus. 3. Chronic injury of the calcaneofibular ligament. Chronic injury of the deltoid ligament. 4. Short segment split tear of the peroneus brevis tendon. 5. Edema within the flexor hallucis longus muscle suggesting muscle strain. Electronically signed by: Diana Hernandez M.D. 10/15/23 20:24 PM MDM Narrative Patient was seen and evaluated as above in room D03a. Review was performed of triage nursing notes and vital signs. I did review pertinent previous visits and patient history. After obtaining a thorough history and physical examination the above work up was performed. Patient presents to us today for evaluation of atraumatic left foot and left medial ankle pain that extends into the left calf. He has a history of DVT and is not currently anticoagulated. He denies any preceding or current infectious symptoms. On examination there is tenderness throughout the plantar aspect of the left foot, left medial ankle and left medial calf. There is perhaps a mild increase in warmth of left ankle compared to the right. Minimal edema to the left ankle joint noted. No erythema. No wounds. Patient is tachycardic at 118. Options of care were discussed with the patient. IV access was established. Labs were drawn. Oral oxycodone was ordered for pain as the patient cannot take NSAIDs and already had acetaminophen today. At 6:28 PM on 10/15/2023 I called and spoke with our radiologist (Dr. Burris) that read the imaging. The patient's presentation does not have any trauma or injury to suggest this fracture and he has had pain now for several months. At this time we agree with and will proceed with MRI to further evaluate. MRI results as above. Findings suggestive of osteonecrosis of the talus with chronic mid body fracture disrupting articular surface. Arthritic changes noted. Moderate joint effusion with synovitis noted. There is also comment of subtalar joint degeneration with degenerative marrow signal in the calcaneus. Chronic injury of the calcaneal fibular ligament. Chronic injury of the deltoid ligament. Also split segment tear of the peroneus brevis tendon. Also note of edema within the flexor hallucis longus muscle suggesting muscle strain. This does correlate with the patient's presentation. I did call the radiologist that read the study (Dr. Hernandez) to review the patient's symptoms to see if an infection component would be possible based on appearance on imaging. Based on imaging, the appearance is less suggestive of infection but not impossible. Patient's heart rate did improve with IV fluids here. At this time we will proceed with a cam type boot/walking boot. Patient does have quite a bit of trouble with walking secondary to pain. He did require 2 rounds of pain medicine here. Patient prefers inpatient management versus outpatient management which I believe is reasonable noting his ambulatory difficulty and difficulty managing pain. In addition, he could be observed for any infectious symptoms. Case discussed with the hospitalist service. Please refer to further documentation regarding his stay. In the evaluation and treatment of this patient the following differential diagnoses were entertained: Fracture, dislocation, subluxation, contusion, sprain, strain, osteomyelitis, among others. Impression & Plan Acute pain of left lower extremity, Osteonecrosis Discharge Plan Visit Data Chief Complaint: Ankle Pain Stated Complaint: LT ANKLE/FOOT PAIN ED Provider: Sohail Leon ED Midlevel Provider: Srinivas Menchaca Discharge Problem: Acute pain of left lower extremity, Osteonecrosis Patient Disposition: Admitted As Inpatient Condition: Good Discharge Instructions Interventions: ED Discharge Assessment Last Done: 10/15/23 23:02 Addendum October 19, 2023 16:33 HPI: The patient is a 47-year-old gentleman with past medical history of hypertension, hyperlipidemia, restrictive lung disease, intellectual delay, OA, DAMION type 2 diabetes, gastroparesis, IBS, GERD/esophagitis, DAMION presents emergency department for evaluation of left ankle and foot pain that he reports has been ongoing for a month or so but began experiencing worsening pain over the past couple of days. A/P: Plain film was performed and demonstrates angulated fracture of the calcaneus with associated soft tissue swelling. Given patient denies any associated trauma additional imaging with MRI performed. MRI results are suggestive of osteonecrosis of the talus with chronic mid body fracture disrupting the articular surface. Additional note is made of chronic injury of the calcaneal fibular ligament and chronic injury of the deltoid ligament as well as tear of peroneus brevis tendon and edema within the flexor hallux Longus Suggesting Muscular Strain. MODESTO Guerrero did review results with [facility] radiology and findings are less likely to be infectious at this time. Heart rate did improve with IV fluid hydration. WBC, hemoglobin and platelets within normal limits. Chemistry without metabolic acidosis. AST and ALT similar to prior range values. LFTs otherwise unremarkable. Patient was referred to hospital service for admission. Further management per admitting team. I was consulted by the Advanced Practice Provider and was substantively involved in the patient's visit.This includes aspects of the HPI, MDM, diagnostic interpretations, and disposition/plan. I discussed the case with the MODESTO and agree with the findings and plan as documented in MODESTO Bamat's note.
[2023-10-15] MEDS ORDERED: oxyCODONE HCL IR 5 MG TAB (IMMEDIATE RELEASE) PO STA (14:21)
[2023-10-15 15:19] LABS: Basophils # (auto) 0.08 K/uL (0.00-0.20); Basophils % (auto) 0.9 %; Eosinophils # (auto) 0.48 K/uL (0.00-0.50); Eosinophils % (auto) 5.4 %; Hematocrit (blood only) 41.8 % (42.0-52.0); Hemoglobin 14.1 g/dl (14.0-18.0); Immature Granulocytes # (auto) 0.08 K/uL (0.01-0.20); Immature Granulocytes % (auto) 0.9 %; Lymphocytes # (auto) 2.49 K/uL (1.20-3.40); Lymphocytes % (auto) 28.3 %; Mean Corpuscular Hemoglobin 27.3 pg (25.0-34.0); Mean Corpuscular Hgb Conc 33.7 g/dL (32.0-36.0); Mean Corpuscular Volume 80.9 fL (80.0-100.0); Mean Platelet Volume 9.5 fL (9.4-12.4); Monocytes # (auto) 0.79 K/uL (0.11-0.59); Neutrophils # (auto) 4.89 K/uL (1.40-6.50); Neutrophils % (auto) 55.5 %; Platelet Count 219 K/uL (130-400); RDW Coefficient of Variation 13.7 % (11.5-14.5); RDW Standard Deviation 40.1 fL (36.4-46.3); Red Blood Count 5.17 M/uL (4.70-6.10); White Blood Count 8.81 K/ul (4.8-10.8)
[2023-10-15 15:32] LABS: Albumin Globulin Ratio 1.2 (0.9-2); Albumin Level 3.9 gm/dl (3.4-5.0); BUN Creatinine Ratio 24.8 (10-20); Bilirubin,Total 0.5 mg/dl (0.2-1.0); Calcium 9.2 mg/dl (8.6-10.3); Creatinine Clr Calc Pharmacy 121.1 ml/min; Est GFR (African American) 91.9 ml/min; Est GFR (Non-African American) 79.3 ml/min; Globulin 3.2 gm/dl (2.5-4.0); Potassium 4.5 mmol/L (3.5-5.1); Total Protein 7.1 gm/dl (6.0-8.3); Uric Acid 6.7 mg/dl (2.6-7.2)
[2023-10-15 15:56] LABS: Lyme Ab IgG w/WB Rflx Negative (Negative); Lyme Ab IgM w/WB Rflx Negative (Negative)
--- NOTE | 2023-10-15 15:57 | Ultrasound Report ---
LEFT LOWER EXTREMITY VENOUS DOPPLER HISTORY: Acute pain and swelling of the left lower leg L foot, ankle and L calf pain, atraumatic COMPARISON STUDY: 07/29/2018 FINDINGS: There is normal compressibility, flow, and augmentation within the left lower extremity stephanie p venous system. IMPRESSION: No DVT within the left lower extremity. ACT 112: Negative or not required by law. Electronically signed by: Gil Hilliard M.D. 10/15/2023 3:56 PM
[2023-10-15] MEDS ORDERED: SODIUM CHLORIDE 0.9% 1,000 ML IV SCH (17:00)
--- NOTE | 2023-10-15 18:09 | XRay Report ---
XR ankle LT min 3V routine, XR foot LT min 3V routine CLINICAL HISTORY: L foot, ankle and L calf pain, atraumatic TECHNIQUE: 3 views of the left ankle and 3 views of the left foot were obtained. Comparison: None available at the time of this dictation. FINDINGS: There is a angulated fracture of the calcaneus. Well-corticated density adjacent to the navicular bon e likely represents an os navicularis. The joint spaces are well preserved. The ankle mortise is inta ct. Soft tissue swelling is seen about the ankle. IMPRESSION: There is an angulated fracture of the calcaneus with associated soft tissue swelling. ACT 112: Negative or not required by law. Electronically signed by: Jovanni Burris M.D. 10/15/2023 6:07 PM
[2023-10-15] MEDS ORDERED: MoRPHine SULFATE 4 MG/ML 1 ML CARP\\VIAL IV STA (18:31)
[2023-10-15] MEDS ORDERED: ONDANSETRON INJ 2 MG/ML 2 ML VIAL IV STA (18:31)
--- NOTE | 2023-10-15 20:25 | Magnetic Resonance Report ---
Exam(s): MRI LEFT ANKLE Without Contrast EXAM: MR Left Lower Extremity Without Intravenous Contrast, Ankle CLINICAL HISTORY: Reason for exam: atraumatic ankle pain, fracture, tachycardia. TECHNIQUE: Multiplanar magnetic resonance images of the left ankle without intravenous contrast. COMPARISON: Left ankle radiographs 10/15/23 FINDINGS: Syndesmotic ligaments are intact. Anterior talofibular ligament and posterior talofibular ligament are intact. Thickening of the calcaneofibular ligament is consistent with chronic sprain. Deltoid ligament is intact, with increased intrasubstance signal suggesting old injury. There is abnormal curvilinear signal and cystic changes within the talus, with surrounding marrow changes. Findings may reflect osteonecrosis of the talus. There is an associated chronic mid-talar fracture extending to the central talar dome with articular surface irregularity. There is secondary osteoarthritic change of the tibiotalar joint. There is a moderate joint effusion with synovitis. There is subtalar joint degeneration. Marrow signal changes within the calcaneus are likely on a degenerative basis. There is no evidence of acute fracture or dislocation. Achilles tendon and plantar aponeurosis are intact. There is a short segment longitudinal split tear of the peroneus brevis tendon. Peroneus longus tendon is intact. Medial flexor tendons and anterior extensor tendons are intact. There is edema within the flexor hallucis longus muscle. IMPRESSION: 1. Findings suggestive of osteonecrosis of the talus with chronic mid- body fracture disrupting the articular surface. Secondary osteoarthritic changes of the tibiotalar joint. Moderate joint effusion with synovitis. 2. Subtalar joint degeneration with degenerative marrow signal in the calcaneus. 3. Chronic injury of the calcaneofibular ligament. Chronic injury of the deltoid ligament. 4. Short segment split tear of the peroneus brevis tendon. 5. Edema within the flexor hallucis longus muscle suggesting muscle strain. Electronically signed by: Diana Hernandez M.D. 10/15/23 20:24 PM
--- OUTSIDE RECORDS SUMMARY | 2023-10-15 21:47 | External Medical Summary | Summary of Care ---
Author Name Unknown Organization [facility] Address [address] [place] [address] Phone [phone] Care Team Providers Care [employer] Manager Name Role Phone Velasquez Valencia MD Primary Care Provider [phone] Reason for Visit * Reason Onset Date Comments Precert Not Needed 09/20/2023 SYMBICORT- Bu desonide-Formoterol Fumarate 80-4.5 MCG/ACT Aerosol Encounter Details Date Type Department Care Team (Late st Contact Info) Description 09/20/2023 Telephone Pulmonary Medicine Jerzy Reyes [address] [place] [id number] Juanjose Patel MD [address] [place] [address] Precert Not Needed (SYMBICORT- Budesonide-... Allergies Active Allergy Reactions Criticality Noted Date Comments Cefaclor Unknown 07/26/2018 As child Empagliflozin Other (Please comment) 05/16/2021 DKA with hospitalization documented as of this encounter (statuses as of 09/30/2023) Medications Medication Sig Dispensed Refills Start Date [...] if NEEDED 30 Tablet 1 3 Active Gabapentin 100 MG Oral Capsule (Neurontin)Indica tions:Neuropathy take 1 capsule by mouth every morning and 2 capsules by mouth at bedtime 270 Capsule 1 3 Active Metoclopramide HCl 10 MG Oral Tablet (Reglan) take 1 tablet by mouth three times a day ( 30 MINUTES before MEALS ) 270 Tablet 1 3 Active Mounjaro 15 MG/0.5ML Subcutaneous Solution Pen-injector (Tirzepatide)Yanet cations:Type 2 diabetes mellitus with hemoglobin A1c goal of less than 7.0% (FORMERLY [facility]) Inject 15 mg under the skin once a week. Dose increase 6 mL 4 3 09/14/20 24 Active Symbicort 80-4.5 MCG/ACT Inhalation AerosolIndication s:Restrictive lung disease secondary to obesity Inhale 2 Puffs by mouth in the morning and 2 Puffs before bedtime. 10.2 g 12 3 Active Losartan Potassium 50 MG Oral Tablet (Cozaar)Indicatio ns:HTN, goal below 140/90 Take 1 Tablet by mouth in the morning. 90 Tablet 3 3 09/23/20 23 Discontinu ed(Medicat ion/Dose Changed) Metoprolol Succinate ER 50 MG Oral Tablet Extended Release 24 Hour (toPROL XL)Indications:Si nus tachycardia Take 1 and a half tablet by mouth daily 135 Tablet 3 3 09/23/20 23 Discontinu ed(Medicat ion/Dose Changed) Budesonide-Formot meeta Fumarate 80-4.5 MCG/ACT Inhalation Aerosol [...] as of this encounter (statuses as of 09/30/2023) Active Problems Problem Noted Date Diagnosed Date Cortical age-related cataract, right eye 11/22/2 023 COPD, moderate 05/25/2023 Neuropathy 02/24/2023 Restrictive [...] as of this encounter (statuses as of 09/30/2023) Resolved Problems Problem Noted Date Diagnosed Date [...] as of this encounter (statuses as of 09/30/2023) Immunizations Name Administration Dates Next Due COVID-19 mRNA, LNP-s, No Pre serve, 2-Dose Series (Pfizer) 10/21/2021,03/01/2021,02/07/2021 H1N1 2009 Influenza, IM 11/04/2009 Pneumococcal Conjugate Vacci ne, 20-valent ([id number]) 07/09/2023 Pneumococcal Polysaccharide PPV23 (Pneumovax) 11/03/2015,02/09/2006 Seasonal Influenza, PF, 6 M & above, IM , (FluLaval or Fluzone) 07/09/2023,10/16/2022,07/31/2021,09/16,07/12/2019,07/05/2018 Seasonal Influenza, Quadriva lent, No Preserve, [...] Date Recorded PHQ Adult Total Score 0 09/23/2023 Hunger Vital Sign Answer Date Recorded Within the past 12 months, y ou worried that your food would run out before you got the money to buy more. Never true 09/23/20 23 Within the past 12 months, t he food you bought just didn't last and you didn't have money to get more. Never true 09/23/2023 Sex and Gender Information Value Date Recorded [...] Care Team (Late st Contact Info) Description 10/06/2023 10:40 AM EST Office Visit [facility] [address] [place] [phone] Aleksandra Campos, [address] [place] [address] 10/13/2023 6:10 PM EST [facility] [place] [address] [address] [facility] [address] [address] 12/14/2023 10:40 AM EST Office Visit Family [facility], [place] [address] [phone] Velasquez Valencia [facility] [address] [facility] [address] 12/27/2023 9:30 AM EDT Imaging Radiology [facility] [address] [place] [address] 02/02/2024 10:00 AM EDT Procedure Only Endoscopy, [facility] [address] [place] [id number] Carlota Rodriguez, DO [address] [place] [phone] Health Maintenance Due Date Last Done Comments Hepatitis B (1 of 3 - 3-dose series) 1973 HIV Screening 1988 Alpha-1 Antitrypsin 1991 Hepatitis C Screening 1991 Diabetic Eye Exam 03/07/2022 03/07/2021, , 08/28/2010, Additional history exists COVID-19 Vaccine ( season) 2023 10/21/2021, 03/01/2021, 02/07/2021 DISCUSS TOBACCO CESSATION (REFER TO SMARTSET #[id number]) 10/16/2023 10/16/2022 Albumin/Creatinine Ratio 01/06/2024 023, 09/01/2021, 05/07/2015, Additional history exists HbA1c 02/02/2024 08/03/2023, 06/19, 01/05/2023, Additional history exists Diabetic Foot Exam 07/09/2024 07/09/2023, 0 03/07/2021, 11/27/2019, Additional history exists GFR 08/03/2024 08/03/2023, 06/19, 02/07/2023, Additional history exists Depression Screening 09/23/2024 09/23/2023 O2 ASSESSMENT COMPLETED IN PAST YEAR FOR COPD 09/27/2024 09/27/2023 Lipid Panel 01/06/2028 01/05/2023, 08/18, 01/08/2011, Additional [...] encounter Medical Devices Implanted Type Area Community Product Specialist Device Identifier Shelf Expiration Date Model / Serial / Lot Suture [place] Dbl Load 5.5mm - [id number] Implanted:Qty: 1 on 12/01/2019 by Judith Condon, at OR [facility] Right: Shoulder [employer] 09/16/2021 [id number] / / [id number] documented as of this encounter Visit Diagnoses [...] the patient have Health Care Power of Consolidator? No Care Teams [employer] Manager Relationship Specialty Start Date End Date Velasquez Valencia MD [address] [place] [address] PCP - General Family Medicine 09/09/22 documented as of this encounter
--- OUTSIDE RECORDS SUMMARY | 2023-10-15 21:47 | External Medical Summary | Summary of Care ---
Author Name Unknown Organization [facility] Address [address] [place] [address] Phone [phone] Care Team Providers Care Computer Systems Software Engineer Name Role Phone Velasquez Valencia MD Primary Care Provider +1- [phone] Reason for Referral * Precert (Within 10 days (routine)) - Pending Review Specialty Diagnoses / Procedures Referred By Bismark t Referred To Contact Radiology Diagnoses Pulmonary nodules Procedures CT CHEST WO CONTRAST Velasquez Valencia MD [address] [place] [address] Referral ID Status Reason Start Date Expiration Date V isits Requested Visits Authorized [id number] Pending Review 09/27/2023 999 999 * Ancillary Services (Within 30 days (routine)) - Authorized Specialty Diagnoses / Procedures Referred By Bismark t Referred To Contact Cardiovascular Medicine Diagnoses Chest pain, unspecified type Velasquez Valencia MD [address] [place] [address] Referral ID Status Reason Start Date Expiration Date Visits Requested Visits Authorized [id number] Authorized Ancillary Services Required 3 999 999 Question Answer Referral Priority Within 30 days (routine) Where should this appointment be scheduled? [facility] What is the preferred location to have this test performed? [facility] How soon should this test be performed? 1 Month or Less Comments Not for rest Echo. Reason for Study (chest pain or anginal equivalent): Screening asymptomatic CAD Select the preferred exam: No Preference - pt told in past that a treadmill was not effective - would need to be done differently. Does the patient have a current EKG? Yes Does the patient have a prior history of a stent or bypass? No Lab Results Component Value Date/Time CREATININE - GEISIN* 0.8 08/03/2023 08:46 AM CREATININE - GEISIN* 0.8 11/25/2019 08:53 AM CREATININE, RANDOM * 245 01/05/2023 11:33 AM CREATININE, RANDOM * 144 05/07/2015 09:24 AM CREATININE-OUTSIDE * 0.96 02/07/2023 12:00 AM Lab Results Component Value Date/Time BUN - [facility] 12 08/03/2023 08:46 AM BUN - [facility] 12 11/25/2019 08:53 AM Reason for Visit * Reason Onset Date Comments Hospital Follow-Up Hospital Follow-Up 09/27/2023 Hospital Follow-Up 09/30/2023 Encounter Details Date Type Department Care Team (Late st Contact Info) Description 09/27/2023 11:00 AM EST Office Visit [facility] [address] [place] [address] Velasquez Valencia MD [address] [place] [address] Chest pain, unspecified type*; Pulmonary nodules; Hospital discharge follow-up Allergies Active Allergy Reactions Criticality Noted Date [...] if NEEDED 30 Tablet 1 07/09/2023 Active Gabapentin 100 MG Oral Capsule (Neurontin)Indicat ions:Neuropathy take 1 capsule by mouth every morning and 2 capsules by mouth at bedtime 270 Capsule 1 08/03/2023 Active Metoclopramide HCl 10 MG Oral Tablet (Reglan) take 1 tablet by mouth three times a day ( 30 MINUTES before MEALS ) 270 Tablet 1 08/03/2023 Active Mounjaro 15 MG/0.5ML Subcutaneous Solution Pen-injector (Tirzepatide)Indic ations:Type 2 diabetes mellitus with hemoglobin A1c goal of less than 7.0% ([facility]) Inject 15 mg under the skin once a week. Dose increase 6 mL 4 09/15/2023 Active Symbicort 80-4.5 MCG/ACT Inhalation AerosolIndications :Restrictive lung disease secondary to obesity Inhale 2 Puffs by mouth in the morning and 2 Puffs before bedtime. 10.2 g 12 09/20/2023 Active Losartan Potassium 100 MG Oral Tablet (Cozaar) Take 1 Tablet by mouth in the morning. 0 Active Metoprolol Succinate ER 100 MG Oral Tablet Extended Release 24 Hour (toPROL XL) Take 1 Tablet by mouth in the morning. 100 mg in the morning & 50 mg in the evening. 0 Active Atorvastatin Calcium 20 MG Oral Tablet (Lipitor) Take 1 Tablet by mouth in the morning. 0 Active Spironolactone 25 MG Oral Tablet (Aldactone) Take 1 Tablet by mouth in the morning. 0 Active Aspirin 81 MG Oral Tablet Delayed Release Take 1 Tablet by mouth in the morning. 0 Active hydroCHLOROthiazid e 25 MG Oral Tablet (Hydrodiuril) Take 1 Tablet by mouth in the morning. 0 Active Hospital, Clinic, or Other Facility Administered [...] only 09/13/2017 12/18/2017 Cellulitis of left foot 09/10/20172 06/2017 Abscess of left foot 09/10/2017 017 [...] Overview: Per HTN Taxonomy. Diabetic polyneuropathy 04/12/2007 100 04/2016 Overview: ICD-10 update of inactive term DM [...] IM 11/04/2009 Pneumococcal Conjugate Vacci ne, 20-valent ([id number]) 07/09/2023 Pneumococcal Polysaccharide PPV23 (Pneumovax) 11/03/2015,02/09/2006 Seasonal [...] Sign Reading Time Taken Comments Blood Pressure 112/68 09/27/2023 11:43 AM EST Pulse 101 09/27/2023 11:43 AM EST Temperature 36.6 C (97.9 F) 09/27/2023 11:[address] Respiratory Rate 18 09/27/2023 11:43 AM EST Oxygen Saturation 95% 09/27/2023 11:43 AM EST Inhaled Oxygen Concentration - - Weight 153 kg (337 lb 3.2 oz) 09/27/2023 11:43 A M EST Height - - Body Mass Index 42.15 08/28/2023 11:25 AM EST documented in this [...] as of this encounter Progress Notes * Velasquez Valencia MD - 09/27/2023 12:09 PM EST Subjective: Bry Akhtar Jr. is a 47 year old male here today for hospital follow up. Patient wasadmitted to [facility] 09/21/23 - 09/22/23 for chest pain. Patient has history of diabetes mellitus with neuropathy, obesity, COPD, gastroparesis, irritable bowel syndrome, dyslipidemia, ongoing tobacco use,history of DVT off of anticoagulation, gastroesophageal reflux disease, obstructive sleep apnea currently not using CPAP. Patient presented to the emergency department on the day of admission with chest pain of several days' duration. Occurred across the anterior chest. Described it as a dull ache.Did have a cough as well. In the emergency department CT angiogram of the chest showed no evidence for pulmonary embolus but there were 2 new nodular densities in the left lung with the largest being1.9 centimeters. Favored inflammatory or infectious change but a [address] of the chest for follow-up was recommended. Echocardiogram showed moderate concentric LVH with borderline global hypokinesis and ejection fraction of 50 to 55% without regional wall motion abnormality. EKG without changes. Troponin mildly elevated. His chest pain seemed to improve with holding ibuprofen, better blood pressure control, compliance with CPAP in the hospital. For the elevated blood pressures, hydrochlorothiazide and spironolactone were added as well as dose adjustments of his losartan and metoprolol. It was suggested he follow up with sleep medicine for ongoing management of his obstructive sleep apnea.Was also suggested he have an outpatient Lexiscan stress test after resolution of his pulmonary illness and once his blood pressure is under better control. Patient has been tolerating the adjustments in his blood pressure medications in his blood pressure is excellent today. He is agreeable to proceeding with stress testing. He was strongly encouraged to stop smoking. He was encouraged to get better diabetes control although patient shows that his continuous glucose monitor would have his 30 and 90 day average blood sugar in the 7's rather than the 9's that were seen at the hospital. Patient is concerned that his pulse rate remains elevated despite medication adjustments. He also reports that in regards to stress testing he was told that he should never have a treadmill stress test due to difficulties with past treadmill stress test. Not entirely sure of the difficulties but itmay have been that he did not achieve target heart rate due to his metoprolol. 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 Current use of insulin (HCC) 09/13/2017 DDD (degenerative disc disease), cervical 07/12/2019 Diabetes mellitus type 2, insulin dependent ([facility]) 07/05/2017 Diabetic polyneuropathy associated with type 2 diabetes mellitus ([facility]) 07/24/2016 Displacement of lumbar intervertebral disc without myelopathy DM type 2, goal: symptom mgmt ([facility]) 09/13/2017 DM type 2, not at goal ([facility]) Dyslipidemia, goal LDL below 70 07/24/2016 Gastroesophageal reflux disease without esophagitis 05/07/2020 Gastroparesis 08/27/2015 GERD (gastroesophageal reflux disease) History of DVT (deep vein thrombosis) 04/19/2019 HTN, goal below 140/90 12/23/2015 Per HTN Protocol #27. HTN, goal: symptom mgmt only 09/13/2017 IBS (irritable bowel syndrome) 08/27/2015 Intellectual disability 10/25/2019 Major depressive disorder, recurrent, severe without psychotic features ([facility]) 12/22/2016 Obesity, Class II, BMI 35-39.9, isolated (see actual BMI) 04/19/2019 OTHER osseochondrosis ankle Primary localized osteoarthrosis, lower leg Sleep apnea, obstructive Tobacco use disorder 12/22/2016 Type 2 diabetes mellitus with hemoglobin A1c goal of less than 8.0% ([facility]) 07/05/2017 Past Surgical History: Procedure Laterality Date ARTHTOMAS Wood,W/ROTATOR CUFF Right 12/01/2019 ARTHROSCOPY SHOULDER ROTATOR CUFF performed by Judith Condon DO at OR [facility] COLONOSCOPY, DIAGNOSTIC (RECTUM) 04/18/2015 adenomatous polyp, repeat 5 yrs/[facility] COLONOSCOPY, DIAGNOSTIC (RECTUM) 04/15/2023 poor prep, repeat / [facility] EGD, FLEXIBLE, DIAGNOSTIC 10/17/2014 mild-mod inflammation, repeat 1-2 mo/[facility] EGD, FLEXIBLE, DIAGNOSTIC 04/17/2015 normal bx/inpt [facility] EGD, FLEXIBLE, DIAGNOSTIC 05/08/2019 reflux esophagitis, gastritis, duodenitis, repeat 6 wks / [facility] EGD, FLEXIBLE, DIAGNOSTIC 08/18/2019 normal-EGD/[place] EGD, FLEXIBLE, DIAGNOSTIC N/A 05/02/2020 biopsies normal/EGD INJECT DX/THER SUBSTANCE INTERLAMINAR CERVICAL/THORACIC W IMAGE GUIDE 08/17/2019 INJECTION SPINE LUMBAR CERVICAL OR THORACIC performed by Dario Nails DO at OR [facility] KNEE ARTHROSCOPY, DIAGNOSTIC l knee REMOVAL OF TONSILS, UNDER AGE 10 SHOULDER ARTHROSCOPY, BICEPS TENODESIS Right 12/01/2019 ARTHROSCOPY SHOULDER BICEP TENODESIS performed by Judith Condon DO at OR [facility] SHOULDER ARTHROSCOPY/DECOMPRESSION Right 12/01/2019 ARTHROSCOPY SHOULDER SUBACROMIAL DECOMPRESSION performed by Judith Condon DO at OR [facility] Review of patient's allergies indicates: Allergen [...] as needed for Constipation. 60 Cap 3 Albuterol Sulfate HFA 108 (90 Base) MCG/ACT Inhalation Aerosol Solution inhale 2 puffs by mouth andINTO THE LUNGS every 6 hours if needed for cough shortness of breath or WITHDRAWAL SYMPTOMS 54 g 3 Pantoprazole Sodium 40 MG Oral Tablet Delayed Release (Protonix) take 1 tablet by mouth twice a unm267 Tablet 1 Famotidine 20 MG Oral Tablet (Pepcid) Take 1 Tablet by mouth every night at bedtime. 90 Tablet 3 Dicyclomine HCl 10 MG Oral Capsule (Bentyl) take 1 capsule by mouth four times a day 360 Capsule 3 metFORMIN HCl 500 MG Oral Tablet [...] a day with meals 45 mL 3 Cyclobenzaprine HCl 10 MG Oral Tablet (Flexeril) TAKE 1 TABLET BY MOUTH AT BEDTIME only if NEEDED 30 Tablet 1 Gabapentin 100 MG Oral Capsule (Neurontin) take 1 capsule by mouth every morning and 2 capsules by mouth at bedtime 270 Capsule 1 Metoclopramide HCl 10 MG Oral Tablet (Reglan) take 1 tablet by mouth three times a day ( 30 MINUTESbefore MEALS ) 270 Tablet 1 Mounjaro 15 MG/0.5ML Subcutaneous Solution Pen-injector (Tirzepatide) Inject 15 mg under the skin once a week. Dose increase 6 mL 4 Symbicort 80-4.5 MCG/ACT Inhalation Aerosol Inhale 2 Puffs by mouth in the morning and 2 Puffs before bedtime. 10.2 g 12 Losartan Potassium 100 MG Oral Tablet (Cozaar) Take 1 Tablet by mouth in the morning. Metoprolol Succinate ER 100 MG Oral Tablet Extended Release 24 Hour (toPROL XL) Take 1 Tablet by mouth in the morning. 100 mg in the morning & 50 mg in the evening. Atorvastatin Calcium 20 MG Oral Tablet (Lipitor) Take 1 Tablet by mouth in the morning. Spironolactone 25 MG Oral Tablet (Aldactone) Take 1 Tablet by mouth in the morning. Aspirin 81 MG Oral Tablet Delayed Release Take 1 Tablet by mouth in the morning. hydroCHLOROthiazide 25 MG Oral Tablet (Hydrodiuril) Take 1 Tablet by mouth in the morning. CPAP every night at bedtime. oxygen IN GAS Use 2 L/min(Oxygen) as directed at bedtime. Unifine Pentips 31G X 5 MM (Insulin Pen Needle) Use as directed 4 times daily 400 Each 3 Current Facility-Administered Medications Medication Dose Route Frequency Provider Last Rate Last Admin Albuterol Sulfate (Proventil) (5 MG/ML) 0.5% *conc* inhalation solution 2.5 mg 2.5 mg Nebulizer Shukri Gann PA-C 2.5 mg at 12/02/22 1327 Objective: BP 112/68 | Pulse 101 | Temp 36.6 C (97.9 F) | Resp 18 | Wt (!) 153 kg (337 lb 3.2 oz) | SpO2 95% | BMI 42.15 kg/m | BSA 2.85 m GEN: NAD HEENT: Benign NECK: Supple with no LAD, TM, JVD CHEST: CTA B CV: tachycardic, regular ABD: Soft, NT/ND, No HSM, NABS EXT: No c,c,e Assessment and Plan: Chest pain, unspecified type (Primary) - CAD IMAGING REFERRAL OP -it was suggested that he have outpatient cardiac stress testing. CAD imaging referral placed. -noted that patient states he was told that he should not have a treadmill stress test in the future and that his pulse rate is at baseline typically elevated. This is despite 150 milligrams of metoprolol daily. Pulmonary nodules - CT CHEST WO CONTRAST - repeat in 3 months Hospital discharge follow-up - DISCH MED RECON CUR MED LIS Check-out note: Chest CT early December 42 min with pt and chart review. Velasquez Valencia MD documented in this encounter Nursing Notes * Tanesha Goldsmith LPN - 09/27/2023 11:43 AM EST Pt in today for a hospital follow up documented in this encounter Plan of Treatment Upcoming Encounters Date Type Department Care Team (Late st Contact Info) Description 10/06/2023 10:40 AM EST Office Visit [facility] [address] [place] [phone] Aleksandra Campos DO [address] [place] [address] 10/13/2023 6:10 PM EST [facility] [place] [address] [facility] [address] [facility] [address] [address] 12/14/2023 10:40 AM EST Office Visit [facility] [place] [address] [facility] [phone] Velasquez Valencia [facility] [address] [facility] [address] 12/27/2023 9:30 AM EDT Imaging Radiology [facility] [address] [place] [address] 02/02/2024 10:00 AM EDT Procedure Only Endoscopy, [facility] [address] [place] [address] Carlota Rodriguez DO [address] [place] [address] Scheduled Orders Name Type Priority Associated Diagnoses Orde r Schedule CT CHEST WO CONTRAST Medical Imaging Routine Pulmonary nodules Ordered: 09/27/2023 Scheduled Referrals Name Type Priority Associated Diagnoses Orde r Schedule CAD IMAGING REFERRAL OP Referral Within 30 days (routine) Chest pain, unspecified type Ordered: 09/27/2023 Health Maintenance Due Date Last Done Comments [...] this encounter Medical Devices Implanted Type Area Fire Prevention Bureau Captain Device Identifier Shelf Expiration Date Model / Serial / Lot Suture [place] Dbl Load 5.5mm - [id number] Implanted:Qty: 1 on 12/01/2019 by Judith Condon, at OR [facility] Right: Shoulder [employer] 09/16/2021 [id number] / / [id number] documented as of this encounter Visit Diagnoses Diagnosis Chest pain, unspecified type- Primary Pulmonary nodules Other nonspecific abnormal finding of lung field Hospital discharge follow-up Other follow-up examination documented in this encounter Advance Directives Latest [...] the patient have Health Care Power of Mechanical Inspector? No Care Teams Computer Systems Software Engineer Relationship Specialty Start Date End Date Velasquez Valencia MD [address], [place] [phone] PCP - General Family Medicine 09/09/22 documented as of this encounter"
--- OUTSIDE RECORDS SUMMARY | 2023-10-15 21:47 | External Medical Summary | Summary of Care ---
Author Name Unknown Organization [facility] Address [address] [facility] [address] Phone [phone] Care Team Providers Care Felt Cementer Name Role Phone Velasquez Valencia MD Primary Care Provider +1- [phone] Encounter Details Date Type Department Care Team (Late st Contact Info) Description 10/07/2023 Telephone Pulmonary Medicine, [facility] [address] [place] [address] Aleksandra Campos DO [address] [place] [address] Allergies Active Allergy Reactions Criticality Noted Date Comments Cefaclor Unknown 07/26/2018 As child Empagliflozin Other (Please comment) 05/16/2021 DKA with hospitalization documented as of this encounter (statuses as of 10/07/2023) Medications Medication Sig Dispensed Refills Start Date [...] as of this encounter (statuses as of 10/07/2023) Active Problems Problem Noted Date Diagnosed Date [...] as of this encounter (statuses as of 10/07/2023) Resolved Problems Problem Noted Date Diagnosed Date [...] as of this encounter (statuses as of 10/07/2023) Immunizations Name Administration Dates Next Due COVID-19 mRNA, LNP-s, No Pre serve, 2-Dose Series (Pfizer) 10/21/2021,03/01/2021,02/07/2021 H1N1 2009 Influenza, IM 11/04/2009 Pneumococcal Conjugate Vacci ne, 20-valent ([id number]) 07/09/2023 Pneumococcal Polysaccharide PPV23 (Pneumovax) 11/03/2015,02/09/2006 Seasonal Influenza, PF, 6 M & above, IM , (FluLaval or Fluzone) 07/09/2023,10/16/2022,07/31/2021,09/16,07/12/2019,07/05/2018 Seasonal Influenza, Quadriva lent, No Preserve, IM 05/24/2017,07/24/2016 Seasonal Influenza, Split, I IV3, With Preserve, Inj 06/27/2015,07/07/2010,09/02/2009,10/26 TDAP (age 10 and older)(Boostrix) 05/01/2018 documented as of this encounter Social History Tobacco Use Types Packs/Day Years Used Date Smoking Tobacco: Every Day Cigarettes 1.5 33 Smokeless Tobacco: Never Comments:01/27/23 currently smoking 10-15 cig/day Alcohol Use Standard Drinks/Week Comments Yes 0 (1 standard drink = 0.6 oz [...] encounter Miscellaneous Notes * Telephone Encounter - Dave Palmer OSA - 10/07/2023 8:10 AM EST Orders in 10/07 adapt supplies documented in this encounter Plan of Treatment Upcoming Encounters Date Type Department Care Team (Late st Contact Info) Description 10/13/2023 6:10 PM EST Pharmacy Pharmacy, [place] [address] [place] [address] [facility] [address] [place] [facility] [address] 11/16/2023 9:30 AM EST Imaging [facility] 2nd Floor Cardiology, [address] [place] [address] 2023 9:30 AM EST Imaging [facility] 2nd Floor Cardiology, [address] [place] [address] 12/09/2023 9:20 AM EST Office Visit [facility] Disorders Ctr [facility] [address] [place] [phone] Aleksandra Campos, DO [address] [place] [address] 12/14/2023 10:40 AM EST Office Visit [facility] [address] [facility], [place] [phone] Velasquez Valencia MD [address] [facility], [place] [address] 12/27/2023 9:30 AM EDT Imaging Radiology [address] [place] [address] 02/02/2024 10:00 AM EDT Procedure Only Endoscopy, [facility] [address] [place] [address] Carlota Rodriguez, DO [address] [place] [address] Health Maintenance Due Date Last Done Comments Hepatitis B (1 of 3 - 3-dose series) 1973 HIV Screening 1988 Alpha-1 Antitrypsin 1991 Hepatitis C Screening 1991 Diabetic Eye Exam 03/07/2022 03/07/2021, , 08/28/2010, Additional history exists COVID-19 Vaccine ( season) 2023 10/21/2021, 03/01/2021, 02/07/2021 DISCUSS TOBACCO CESSATION (REFER TO SMARTSET #5541) 10/16/2023 10/16/2022 Albumin/Creatinine Ratio 01/06/2024 023, 09/01/2021, 05/07/2015, Additional history exists HbA1c 02/02/2024 08/03/2023, 06/19, 01/05/2023, Additional history exists Diabetic Foot Exam 07/09/2024 07/09/2023, 0 03/07/2021, 11/27/2019, Additional history exists GFR 08/03/2024 08/03/2023, 06/19, 02/07/2023, Additional history exists Depression Screening 09/23/2024 09/23/2023 O2 ASSESSMENT COMPLETED IN PAST YEAR FOR COPD 10/06/2024 10/06/2023 Lipid Panel 01/06/2028 01/05/2023, 08/18, 01/08/2011, Additional [...] this encounter Medical Devices Implanted Type Area Wire Communications Engineer Device Identifier Shelf Expiration Date Model / Serial / Lot Suture [place] Dbl Load 5.5mm - [id number] Implanted:Qty: 1 on 12/01/2019 by Judith Condon, at OR [facility] Right: Shoulder [employer] 09/16/2021 [id number] / / [id number] documented as of this encounter Advance Directives [...] the patient have Health Care Power of Blasting Coal Miner? No Care Teams Felt Cementer Relationship Specialty Start Date End Date Velasquez Valencia MD [address] [place] [address] PCP - General Family Medicine 09/09/22 documented as of this encounter
--- OUTSIDE RECORDS SUMMARY | 2023-10-15 21:47 | External Medical Summary | Summary of Care ---
Author Name Unknown Organization [facility] Address [address] [place] [address] Phone [phone] Care Team Providers Care Green Promotions Specialist Name Role Phone Velasquez Valencia MD Primary Care Provider [phone]- [phone] Reason for Visit * Reason Comments Follow Up Here for return . OS A. CPAP. Patient states he feels better if he doesn't use the CPAP. Hasn't used it for several mo. Was in the hospital and was referred here. Encounter Details Date Type Department Care Team (Late st Contact Info) Description 10/06/2023 10:40 AM EST Office Visit Sleep Disorders Ctr [facility] [address] [facility] [place] [address] Aleksandra Campos, [address] [facility] [place] [address] Obstructive sleep apnea*; Nocturnal hypoxemia Allergies Active Allergy Reactions Criticality Noted Date Comments Cefaclor Unknown 07/26/2018 As child Empagliflozin Other (Please comment) 05/16/2021 DKA with hospitalization documented as of this encounter (statuses as of 10/06/2023) Medications Medication Sig Dispensed Refills Start Date [...] as of this encounter (statuses as of 10/06/2023) Active Problems Problem Noted Date Diagnosed Date [...] as of this encounter (statuses as of 10/06/2023) Resolved Problems Problem Noted Date Diagnosed Date Resolved Date Fracture of nasal bones, ini tial encounter for closed fracture 10/23/2021 10/20/2022 Neuropathy 10/23/2021 10/20/2022 Diabetic ketoacidosis withou t coma associated with type 2 diabetes mellitus 03/02/2021 07/04/2021 Intellectual disability 10/25/2019/0 03/2022 HTN, goal below 130/80 12/18/201710/20 Leg [...] as of this encounter (statuses as of 10/06/2023) Immunizations Name Administration Dates Next Due COVID-19 mRNA, LNP-s, No Pre serve, 2-Dose Series (Pfizer) 10/21/2021,03/01/2021,02/07/2021 H1N1 2008 Influenza, IM 11/04/2009 Pneumococcal Conjugate Vacci ne, 20-valent ([id number]) 07/09/2023 Pneumococcal Polysaccharide PPV23 (Pneumovax) 11/03/2015,02/09/2006 Seasonal [...] Day Cigarettes 1.5 33 Smokeless Tobacco: Never Tobacco Cessation:Ready to [...] Sign Reading Time Taken Comments Blood Pressure 126/76 10/06/2023 10:42 AM EST Pulse 106 10/06/2023 10:42 AM EST Temperature 35.7 C (96.3 F) 10/06/2023 10:[address] Respiratory Rate 18 10/06/2023 10:42 AM EST Oxygen Saturation 99% 10/06/2023 10:42 AM EST Inhaled Oxygen Concentration - - Weight 147.4 kg (325 lb) 10/06/2023 10:42 AM EST Height 190.5 cm (6' 3") 10/06/2023 10:42 AM EST Body Mass Index 40.62 10/06/2023 10:42 AM EST documented in this encounter Functional [...] as of this encounter Progress Notes * Aleksandra Campos, - 10/06/2023 11:07 AM EST Sleep Medicine Follow-Up HISTORY: Bry Akhtar is a 47 year old male for follow up of severe DAMION. PSG 09/17/2015 (BMI 34.99): AHI 42.8, SpO2 clarke 80%, time <89% 25.8 min, PLMI 122.3, PLMAI 1. He was using BiPAP 19/10 cmH2O (started from 09/2022 hospitalization with hypercapnic respiratory failure suspected 2/2 DAMION/OHS). He stopped using BiPAP a few months ago. He has oxygen for use via PAP, but is not using it since he has not been using PAP. At recent hospitalization, Sleep Medicine follow-up to facilitate troubleshooting & restarting PAP therapy was recommended. Patient notes he had stopped using PAP because he was waking up feeling more tired/groggy, achy with using PAP. He wakes up feeling better when not using PAP. + dry mouth when using PAP. When he was in the hospital, they had him on a BiPAP, and he felt he did better with that. Unsure of settings. Mask was a FFM (similar to what he was using at home). Sleep refreshing on PAP: no Snoring on PAP: not that he is aware of Daytime sleepiness: not currently (was worse when he was using PAP) Drowsy driving: none Interface: FFM Mask leak: not that he had noticed. Dry nose or dry mouth: yes Use humidifier? yes Rash from mask: no Aerophagia: no Morning headaches: no Recent weight change: no [place] Sleepiness Scale: 1 [place] Sleepiness Scale Question 10/06/2023 10:42 AM EST - Filed by Patient What is the chance you will doze off in the following situation? Sitting and reading No chance of dozing Watching TV Slight chance of dozing Sitting inactive in a public place, such as a theater or meeting No chance of dozing As a passenger in a car for an hour without a break No chance of dozing Lying down to rest in the afternoon when circumstances permit No chance of dozing When sitting and talking to someone No chance of dozing When sitting quietly after lunch without alcohol No chance of dozing In a car, while stopped for a few minutes in traffic No chance of dozing Score (range: 0 - 24) 1 Travel Screening Question 10/06/2023 10:42 AM EST - Filed by Patient Do you have any of the following new or worsening symptoms? None of these Have you recently been in contact with someone who was sick? No / Unsure CPAP Compliance: Most recent data pulled from [employer] portal. Report date: 02/15/23 to 03/17/23 % total days used: 83.8% % days used > 4 hours: 9.7% Average hours per day used: 2h 25m Note: Patient disagrees with reported usage times. Patient states when he had CPAP on, it would be on all night (9-10 PM to 5-6 AM). It was not coming off in his sleep. Large leak: yes -- average leak 95.5 L/min AHI: 1.2 /hr Pressure settin/10 cmH2O Equipment: DME Provider is [employer] Uses a [employer]. 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 DDD (degenerative disc disease), cervical M50.30 Cervical spinal stenosis M48.02 Gastroesophageal reflux disease without esophagitis K21.9 Type 2 diabetes mellitus with autonomic neuropathy ([facility]) E11.43 Precordial pain R07.2 Chronic respiratory failure with hypercapnia ([facility]) J96.12 Lumbar disc herniation M51.26 Body mass index (BMI) of 40.0 to 44.9 in adult ([facility]) Z68.41 Obstructive sleep apnea G47.33 Restrictive lung disease secondary to obesity J98.4, E66.9 Neuropathy G62.9 COPD, moderate ([facility]) J44.9 Cortical age-related cataract, right eye H25.011 Outpatient Medications Marked as Taking for the 10/06/23 encounter (Office Visit) with Aleksandra Campos, DO Medication Sig Aspirin 81 MG Oral Tablet Delayed Release Take 1 Tablet by mouth in the morning. Atorvastatin Calcium 20 MG Oral Tablet (Lipitor) Take 1 Tablet by mouth in the morning. hydroCHLOROthiazide 25 MG Oral Tablet (Hydrodiuril) Take 1 Tablet by mouth in the morning. Losartan Potassium 100 MG Oral Tablet (Cozaar) Take 1 Tablet by mouth in the morning. Metoprolol Succinate ER 100 MG Oral Tablet Extended Release 24 Hour (toPROL XL) Take 1 Tablet by mouth in the morning. 100 mg in the morning & 50 mg in the evening. Spironolactone 25 MG Oral Tablet (Aldactone) Take 1 Tablet by mouth in the morning. Symbicort 80-4.5 MCG/ACT Inhalation Aerosol Inhale 2 Puffs by mouth in the morning and 2 Puffs before bedtime. Mounjaro 15 MG/0.5ML Subcutaneous Solution Pen-injector (Tirzepatide) Inject 15 mg under the skin once a week. Dose increase Gabapentin 100 MG Oral Capsule (Neurontin) take 1 capsule by mouth every morning and 2 capsules by mouth at bedtime Metoclopramide HCl 10 MG Oral Tablet (Reglan) take 1 tablet by mouth three times a day ( 30 MINUTESbefore MEALS ) Cyclobenzaprine HCl 10 MG Oral Tablet (Flexeril) TAKE 1 TABLET BY MOUTH AT BEDTIME only if NEEDED Insulin Aspart FlexPen 100 UNIT/ML Subcutaneous Solution Pen-injector inject 16 units subcutaneously three times a day with meals Insulin Glargine Solostar 100 UNIT/ML Subcutaneous Solution Pen-injector Inject 28 units in the morning and 40 units in the evening metFORMIN HCl 500 MG Oral Tablet (Glucophage) Take 2 Tablets by mouth in the morning and 2 Tablets in the evening. Unifine Pentips 31G X 5 MM (Insulin Pen Needle) Use as directed 4 times daily Dicyclomine HCl 10 MG Oral Capsule (Bentyl) take 1 capsule by mouth four times a day Famotidine 20 MG Oral Tablet (Pepcid) Take 1 Tablet by mouth every night at bedtime. oxygen IN GAS Use 2 L/min(Oxygen) as directed at bedtime. Pantoprazole Sodium 40 MG Oral Tablet Delayed Release (Protonix) take 1 tablet by mouth twice a day Albuterol Sulfate HFA 108 (90 Base) MCG/ACT Inhalation Aerosol Solution inhale 2 puffs by mouth andINTO THE LUNGS every 6 hours if needed for cough shortness of breath or WITHDRAWAL SYMPTOMS docusate sodium (RA COL-RITE) 100 MG Capsule Take 1 Cap by mouth 2 times a day as needed for Constipation. Diclofenac Sodium (VOLTAREN) 1 % gel Place 2 g topically on the skin 2 times a day. To affected area as directed. Current Facility-Administered Medications for the 10/06/23 encounter (Office Visit) with Aleksandra Campos DO Medication Albuterol Sulfate (Proventil) (5 MG/ML) 0.5% *conc* inhalation solution 2.5 mg PHYSICAL EXAM: Filed Vitals: 10/06/23 1042 BP: 126/76 Pulse: 106 Resp: 18 Temp: 35.7 C (96.3 F) SpO2: 99% Weight: (!) 147.4 kg (325 lb) Height: 1.905 m (6' 3") Body mass index is 40.62 kg/m. General: alert, no acute distress Head: NC/AT Lungs: normal respiratory effort Neuro: speech clear and appropriate ASSESSMENT/PLAN: Obstructive sleep apnea Hx chronic respiratory failure with hypercapnia - BiPAP at prior setting was not well tolerated -- not clear why, but he was less well rested with use. Large leak noted (though he had not been bothered by leak). - will try lowering pressures to see if better tolerated. - Adjust to 15/8 cwp. - Adjust humidity to comfort (increase due to dryness) - DME: [employer] - Routine cleaning and change of supplies as needed. - Continue to avoid driving when feeling sleepy/drowsy. - Continue oxygen via BiPAP (unsure of current oxygen setting) - if PAP tolerability does not improve significantly with adjusted setting, a PAP titration study may be recommended. - discussed Inspire. If PAP tolerability does not improve, then we may consider surgical evaluation, including for Inspire. Discussed that an updated baseline PSG would be recommended in this case, as his baseline study was 8 years ago. Follow-up with Sleep Medicine in 2 months. Aleksandra Campos DO documented in this encounter Nursing Notes * Rubia Taylor LPN - 10/06/2023 10:44 AM EST Chief Complaint Patient presents with Follow Up Here for return . DAMION. CPAP. Patient states he feels better if he doesn't use the CPAP. Hasn't usedit for several mo. Was in the hospital and was referred here. DME: [employer]. [place] Sleepiness Scale Question 10/06/2023 10:42 AM EST - Filed by Patient What is the chance you will doze off in the following situation? Sitting and reading No chance of dozing Watching TV Slight chance of dozing Sitting inactive in a public place, such as a theater or meeting No chance of dozing As a passenger in a car for an hour without a break No chance of dozing Lying down to rest in the afternoon when circumstances permit No chance of dozing When sitting and talking to someone No chance of dozing When sitting quietly after lunch without alcohol No chance of dozing In a car, while stopped for a few minutes in traffic No chance of dozing Score (range: 0 - 24) 1 Travel Screening Question 10/06/2023 10:42 AM EST - Filed by Patient Do you have any of the following new or worsening symptoms? None of these Have you recently been in contact with someone who was sick? No / Unsure documented in this encounter Plan of Treatment Upcoming Encounters Date Type Department Care Team (Late st Contact Info) Description 10/13/2023 6:10 PM EST Pharmacy Pharmacy, [place] [address] [place] [address] [facility] [address] [place] [address] 11/16/2023 9:30 AM EST Imaging [facility] 2nd Floor Cardiology, [address] [place] [address] 2023 9:30 AM EST Imaging [facility] 2nd Floor Cardiology, [address] [place] [address] 12/09/2023 9:20 AM EST Office Visit [facility] [address] [place] [id number] Aleksandra Campos, DO [address] [place] [address] [place] [address] 12/14/2023 10:40 AM EST Office Visit [facility], [place] [address] [facility], [place] [address] Velasquez Valencia MD [address] [place] [facility] [place] [address] 12/27/2023 9:30 AM EDT Imaging Radiology [address] [place] [address] 02/02/2024 10:00 AM EDT Procedure Only Endoscopy, [facility] [address] [place] [address] Carlota Rodriguez, DO [address] [place] [address] Health Maintenance Due Date Last Done Comments [...] COMPLETED IN PAST YEAR FOR COPD 09/27/2024 10/06/2023 Lipid Panel 01/06/2028 01/05/2023, 08/18, 01/08/2011, [...] this encounter Medical Devices Implanted Type Area Facility Maintenance Worker Device Identifier Shelf Expiration Date Model / Serial / Lot Suture [place] Dbl Load 5.5mm - [id number] Implanted:Qty: 1 on 12/01/2019 by Judith Condon, at OR [facility] Right: Shoulder [employer] 09/16/2021 [id number] / / [id number] documented as of this encounter Visit Diagnoses Diagnosis Obstructive sleep apnea- Primary Obstructive sleep apnea (adult) (pediatric) Nocturnal hypoxemia Hypoxemia documented in this encounter Advance Directives Latest [...] the patient have Health Care Power of Printed Circuit Board Panels Developer? No Care Teams Green Promotions Specialist Relationship Specialty Start Date End Date Velasquez Valencia MD [address] [place] [address] PCP - General Family Medicine 09/09/22 documented as of this encounter
--- OUTSIDE RECORDS SUMMARY | 2023-10-15 21:47 | External Medical Summary | Summary of Care ---
Author Name Unknown Organization [facility] Address [address] [place] [address] Phone [phone] Care Team Providers Care Senior Production Planner Name Role Phone Tati Polo MD Primary Care Provider [phone]- [phone] Reason for Visit * Reason Onset Date Comments Medication Refill 10/07/2023 Encounter Details Date Type Department Care Team (Late st Contact Info) Description 10/07/2023 Production Weigher Telephone Care Coordination and Integration [address] [place] [address] Chandni Dahl, NEPTALI [address] [place], [place] [id number] Medication Refill Allergies Active Allergy Reactions Criticality Noted Date [...] A1c goal of less than 7.0% ([facility]) Inject 15 mg under the skin once a week. Dose increase 6 mL 4 3 09/14/20 24 Active Symbicort 80-4.5 MCG/ACT Inhalation AerosolIndication s:Restrictive lung disease secondary to obesity Inhale 2 Puffs by mouth in the morning and 2 Puffs before bedtime. 10.2 g 12 3 Active Losartan Potassium 100 MG Oral Tablet (Cozaar) Take 1 Tablet by mouth in the morning. 90 Tablet 3 3 Active Metoprolol Succinate ER 100 MG Oral Tablet Extended Release 24 Hour (toPROL XL) Take 1 Tablet by mouth in the morning. 100 mg in the morning & 50 mg in the evening. 135 Tablet 3 3 Active Atorvastatin Calcium 20 MG Oral Tablet (Lipitor) Take 1 Tablet by mouth in the morning. 90 Tablet 3 3 Active Spironolactone 25 MG Oral Tablet (Aldactone) Take 1 Tablet by mouth in the morning. 90 Tablet 3 3 Active hydroCHLOROthiazi de 25 MG Oral Tablet (Hydrodiuril) Take 1 Tablet by mouth in the morning. 90 Tablet 3 3 Active Aspirin 81 MG Oral Tablet Delayed Release Take 1 Tablet by mouth in the morning. 90 Tablet 3 3 Active Losartan Potassium 100 MG Oral Tablet (Cozaar) Take 1 Tablet by mouth in the morning. 0 10/07/20 23 Discontinu ed(Refill) Metoprolol Succinate ER 100 MG Oral Tablet Extended Release 24 Hour (toPROL XL) Take 1 Tablet by mouth in the morning. 100 mg in the morning & 50 mg in the evening. 0 10/07/20 23 Discontinu ed(Refill) Atorvastatin Calcium 20 MG Oral Tablet (Lipitor) Take 1 Tablet by mouth in the morning. 0 10/07/20 23 Discontinu ed(Refill) Spironolactone 25 MG Oral Tablet (Aldactone) Take 1 Tablet by mouth in the morning. 0 10/07/20 23 Discontinu ed(Refill) Aspirin 81 MG Oral Tablet Delayed Release Take 1 Tablet by mouth in the morning. 0 10/07/20 23 Discontinu ed(Refill) hydroCHLOROthiazi de 25 MG Oral Tablet (Hydrodiuril) Take 1 Tablet by mouth in the morning. 0 10/07/20 23 Discontinu ed(Refill) Hospital, Clinic, or Other [...] mRNA, LNP-s, No Pre serve, 2-Dose Series (AwesomePiece) 10/21/2021,03/01/2021,02/07/2021 H1N1 2009 Influenza, IM 11/04/2009 Pneumococcal Conjugate Vacci ne, 20-valent ([id number]) 07/09/2023 Pneumococcal Polysaccharide PPV23 (Pneumovax) 11/03/2015,02/09/2006 Seasonal [...] Telephone Encounter - Tati Polo MD - 10/07/2023 4:09 PM ESTSigned Prescriptions: Disp Refills Losartan Potassium 100 MG Oral Tablet (Coz*90 Tab*3 Sig: Take 1 Tablet by mouth in the morning.Authorizing Provider: TATI POLO Metoprolol Succinate ER 100MG Oral Tablet*135 Ta*3 Sig: Take 1 Tablet by mouth in the morning. 100 mg in the morning & 50 mg in the evening.Authorizing Provider: TATI POLO Atorvastatin Calcium 20 MG Oral Tablet(Li*90 Tab*3 Sig: Take 1 Tablet by mouth in the morning.Authorizing Provider: TATI POLO Spironolactone 25 MG Oral Tablet ([place]acton*90 Tab*3 Sig: Take 1 Tablet by mouth in the morning.Authorizing Provider: TATI POLO hydroCHLOROthiazide 25 MG Oral Tablet (Hyd*90 Tab*3 Sig: Take 1 Tablet by mouth in the morning.Authorizing Provider: TATI POLO Aspirin 81 MG Oral Tablet Delayed Release 90 Tab*3 Sig: Take 1 Tablet by mouth in the morning.Authorizing Provider: TATI POLO * Telephone Encounter - Chandni Dahl, NEPTALI - 10/07/2023 1:[address] Polo, Patient needs refills for the attached medications, patient requesting the medications go to [facility] Mail order pharmacy thanks Chandni Dahl, RN documented in this encounter Plan of Treatment Upcoming Encounters Date Type Department Care Team (Late st Contact Info) Description 10/13/2023 6:10 PM EST [facility] [place] [address] [facility] [address] [facility] [address] [facility] [address] 11/16/2023 9:30 AM EST Imaging [facility] 2nd [facility] Cardiology, [place] [address] [facility] [place] [address] 2023 9:30 AM EST Imaging [facility] Cardiology, [place] [address] [facility] [place] [address] 12/09/2023 9:20 AM EST Office Visit Sleep Disorders Ctr [facility] [address] [place] [phone] Aleksandra Campos, [address] [place] [address] 12/14/2023 10:40 AM EST Office Visit Family [facility], [place] [address] [facility] [phone] Tati Polo MD [address] [facility] [address] 12/27/2023 9:30 AM EDT Imaging Radiology [facility] [facility], [place] [address] [facility] [place] [address] 02/02/2024 10:00 AM EDT Procedure Only Endoscopy, [facility] [address] [place] [address] Carlota Rodriguez, [address] [place] [address] Health Maintenance Due Date Last Done Comments Hepatitis B (1 of 3 - 3-dose series) 1973 HIV Screening 1988 Alpha-1 Antitrypsin 1991 Hepatitis C Screening 1991 Diabetic Eye Exam 03/07/2022 03/07/2021, , 08/28/2010, Additional history exists COVID-19 Vaccine ( season) 2023 10/21/2021, 03/01/2021, 02/07/2021 DISCUSS TOBACCO CESSATION (REFER TO SMARTSET #5813) 10/16/2023 10/16/2022 Albumin/Creatinine Ratio 01/06/2024 023, 09/01/2021, [...] this encounter Medical Devices Implanted Type Area Bakery Machine Mechanic Supervisor Device Identifier Shelf Expiration Date Model / Serial / Lot Suture [place] Dbl Load 5.5mm - [id number] Implanted:Qty: 1 on 12/01/2019 by Judith Condon, at OR [facility] Right: Shoulder [employer] 09/16/2021 [id number] / / [id number] documented as of this encounter Advance Directives [...] the patient have Health Care Power of Belt Sander? No Care Teams Senior Production Planner Relationship Specialty Start Date End Date Tati Polo MD [address] [place] [address] PCP - General Family Medicine 09/09/22 documented as of this encounter
--- OUTSIDE RECORDS SUMMARY | 2023-10-15 21:47 | External Medical Summary | Summary of Care ---
Author Name Unknown Organization [facility] Address [address] [place] [address] Phone [phone] Care Team Providers Care Director Of National Sales Name Role Phone Velasquez Valencia MD Primary Care Provider +1- [phone] Reason for Visit * Reason Comments Appointment Encounter Details Date Type Department Care Team (Late st Contact Info) Description 10/13/2023 6:10 PM [facility] Pharmacy Pharmacy, [address] [address] [facility] [address] [place] [address] Type 2 diabetes mellitus with hemoglobin A1c goal of less than 7.0% ([facility])* Allergies Active Allergy Reactions Criticality Noted Date Comments Cefaclor Unknown 07/26/2018 As child Empagliflozin Other (Please comment) 05/16/2021 DKA with hospitalization documented as of this encounter (statuses as of 10/13/2023) Medications Medication Sig Dispensed Refills Start Date [...] of less than 7.0% ([facility]) Inject 15 mg under the skin once a week. Dose increase 6 mL 4 09/15/2023 Active Symbicort 80-4.5 MCG/ACT Inhalation AerosolIndications :Restrictive lung disease secondary to obesity Inhale 2 Puffs by mouth in the morning and 2 Puffs before bedtime. 10.2 g 12 09/20/2023 Active Losartan Potassium 100 MG Oral Tablet (Cozaar) Take 1 Tablet by mouth in the morning. 90 Tablet 3 10/07/2023 Active Metoprolol Succinate ER 100 MG Oral Tablet Extended Release 24 Hour (toPROL XL) Take 1 Tablet by mouth in the morning. 100 mg in the morning & 50 mg in the evening. 135 Tablet 3 10/07/2023 Active Atorvastatin Calcium 20 MG Oral Tablet (Lipitor) Take 1 Tablet by mouth in the morning. 90 Tablet 3 10/07/2023 Active Spironolactone 25 MG Oral Tablet (Aldactone) Take 1 Tablet by mouth in the morning. 90 Tablet 3 10/07/2023 Active hydroCHLOROthiazid e 25 MG Oral Tablet (Hydrodiuril) Take 1 Tablet by mouth in the morning. 90 Tablet 3 10/07/2023 Active Aspirin 81 MG Oral Tablet Delayed Release Take 1 Tablet by mouth in the morning. 90 Tablet 3 10/07/2023 Active Hospital, Clinic, or Other Facility Administered Medication Ordered Dose Route Frequency Start Date End Date Status Albuterol Sulfate (Proventil) (5 MG/ML) 0.5% *conc* inhalation solution 2.5 mgIndications:Chronic respiratory failure with hypercapnia (HCC) 2.5 mg NEBULIZER PRN 12/01/2022 12/01/2023 Ac tive documented as of this encounter (statuses as of 10/13/2023) Active Problems Problem Noted Date Diagnosed Date [...] as of this encounter (statuses as of 10/13/2023) Resolved Problems Problem Noted Date Diagnosed Date [...] as of this encounter (statuses as of 10/13/2023) Immunizations Name Administration Dates Next Due COVID-19 mRNA, LNP-s, No Pre serve, 2-Dose Series (Pfizer) 10/21/2021,03/01/2021,02/07/2021 H1N1 2009 Influenza, IM 11/04/2009 Pneumococcal Conjugate Vacci ne, 20-valent ([id number]) 07/09/2023 Pneumococcal Polysaccharide PPV23 (Pneumovax) 11/03/2015,02/09/2006 Seasonal [...] as of this encounter Progress Notes * Charleen Willams PHARM Tech - 10/13/2023 9:53 AM EST Patient Phone Numbers Spoke with patient to schedule MTDM appointment for DM management. Appointment scheduled as noted below. 12/17/2023 Thank you, Charleen Willams Jewelry Polisher [facility] ([facility]) (Formerly Telepharmacy) 10/13/2023, 9:56 AM documented in this encounter Plan of Treatment Upcoming Encounters Date Type Department Care Team (Late st Contact Info) Description 11/16/2023 9:30 AM EST Imaging [facility] 2nd Floor Cardiology, [address] [place] [address] 2023 9:30 AM EST Imaging [facility] 2nd Floor Cardiology, [place] [address] [place] [address] 12/09/2023 9:20 AM EST Office Visit Sleep Disorders Ctr [facility] [address] [place] [phone] Aleksandra Campos, DO [address] [place] [address] 12/14/2023 10:40 AM EST Office Visit [facility] [place] [address] [facility] [address] [facility]quez [facility] [address] [facility] [address] 12/17/2023 10:30 AM EST Pharmacy Pharmacy, [place] [address] [facility] [address] [facility] [address] [facility] [address] 12/27/2023 9:30 AM EDT Imaging Radiology [facility] 1st [facility], [place] [address] [place] [address] 02/02/2024 10:00 AM EDT Procedure Only Endoscopy, [facility] [address] [place] [address] Carlota Rodriguez, [address] [place] [address] Health Maintenance Due Date Last Done Comments [...] this encounter Medical Devices Implanted Type Area Fancy Stitcher Device Identifier Shelf Expiration Date Model / Serial / Lot Suture [place] Dbl Load 5.5mm - [id number] Implanted:Qty: 1 on 12/01/2019 by Judith Condon, DO at OR [facility] Right: Shoulder [employer] 09/16/2021 [id number] -[id number] / / [id number] documented as of this encounter Visit Diagnoses Diagnosis Type 2 diabetes mellitus with hemoglobin A1c goal of less than 7.0% ([facility])- Primary documented in this encounter Advance [...] patient have Health Care Power of Engineering Designer? No Care Teams Director Of National Sales Relationship Specialty Start Date End Date Velasquez Valencia MD [address] [place] [address] PCP - General Family Medicine 09/09/22 documented as of this encounter
--- OUTSIDE RECORDS SUMMARY | 2023-10-15 21:47 | External Medical Summary | Summary of Care ---
Author Name Unknown Organization [facility] Address [address] [place] [address] Phone [phone] Care Team Providers Care Engineering Consultant Name Role Phone Velasquez Valencia MD Primary Care Provider +1- [phone] Reason for Referral * Precert (Within 10 days (routine)) - Pending Review Specialty Diagnoses / Procedures Referred By Contac t Referred To Contact Radiology Diagnoses Chest pain Type 2 diabetes mellitus with hemoglobin A1c goal of less than 7.0% ([facility]) Body mass index (BMI) of 40.0 to 44.9 in adult (HCC) Dyslipidemia Tobacco use disorder Procedures NM MYOCARD PERF IMG SPECT MULT STUDIES WITH PHARM INTERV El Cloud DO [address] [place] [address] Referral ID Status Reason Start Date Expiration Date Visits Requested Visits Authorized [id number] Pending Review Precert 10/31/[id number] Encounter Details Date Type Department Care Team (Late st Contact Info) Description 09/30/2023 Orders Only Cardiology, [facility] [address] [place] [address] El Cloud DO [address] [place] [address] Chest pain*; Type 2 diabetes mellitus with hemoglobin A1c goal of less than 7.0% ([facility]); Body mass index (BMI) of 40.0 to 44.9 in adult ([facility]); Dyslipidemia; Tobacco use disorder Allergies Active Allergy Reactions Criticality Noted Date [...] of less than 7.0% ([facility]) Take 2 Tablets by mouth in the morning and 2 Tablets in the evening. 360 Tablet 3 06/18/2023 Active Insulin Glargine Solostar 100 UNIT/ML Subcutaneous Solution Pen-injectorIndica tions:Type 2 diabetes mellitus with hemoglobin A1c goal of less than 7.0% ([facility]) Inject 28 units in the morning and 40 units in the evening 75 mL 3 06/18/2023 Active Insulin Aspart FlexPen 100 UNIT/ML Subcutaneous Solution Pen-injectorIndica tions:Type 2 diabetes mellitus with hemoglobin A1c goal of less than 7.0% ([facility]) inject 16 units subcutaneously three times a [...] of less than 7.0% ([facility]) Inject 15 mg under the skin once a week. Dose increase 6 mL 4 09/15/2023 4 Active Symbicort 80-4.5 MCG/ACT Inhalation AerosolIndications :Restrictive [...] mRNA, LNP-s, No Pre serve, 2-Dose Series ([employer]) 10/21/2021,03/01/2021,02/07/2021 H1N1 2009 Influenza, IM 11/04/2009 Pneumococcal Conjugate Vacci ne, 20-valent ([id number]) 07/09/2023 Pneumococcal Polysaccharide PPV23 (Pneumovax) 11/03/2015,02/09/2006 Seasonal [...] as of this encounter Progress Notes * Trinity Jha, EZ - 09/30/2023 3:03 PM EST Images from the original note were not included. CAD Imaging Referral Note Bry Akhtar Jr. is a 47 year old male who was referred by Dr. Velasquez Valencia for evaluation ofchest pain. Reviewing Manager Hotel: Dr. El Cloud Orders placed: Pharm Nuclear Stress test (2-day protocol) Test location: [facility] Referral priority: 1 month or less From Dr. Valencia's Progress Note on 09/27/2023: Subjective: Bry Akhtar Jr. is a 47 year old male here today for hospital follow up. [facility] - 09[facility]22[facility]23 for chest pain. Patient [...] target heart rate due to his metoprolol. 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 DDD (degenerative disc disease), cervical M50.30 Cervical spinal stenosis M48.02 Gastroesophageal reflux disease without esophagitis K21.9 Type 2 diabetes mellitus with autonomic neuropathy ([facility]) E11.43 Precordial pain R07.2 Chronic respiratory failure with hypercapnia ([facility]) J96.12 Lumbar disc herniation M51.26 Body mass index (BMI) of 40.0 to 44.9 in adult ([facility]) Z68.41 Obstructive sleep apnea G47.33 Restrictive lung disease secondary to obesity J98.4, E66.9 Neuropathy G62.9 COPD, moderate ([facility]) J44.9 Cortical age-related cataract, right eye H25.011 Current Outpatient Medications Medication Sig Dispense Refill [...] take 1 tablet by mouth twice a [id number] Tablet 1 oxygen IN GAS Use 2 L/min(Oxygen) as directed at bedtime. Famotidine 20 MG Oral Tablet (Pepcid) Take [...] directed 4 times daily 400 Each 3 Cyclobenzaprine HCl 10 MG Oral Tablet [...] 1 Tablet by mouth in the morning. Current Facility-Administered Medications Medication Dose Route Frequency Provider Last Rate Last Admin Albuterol Sulfate (Proventil) (5 MG/ML) 0.5% *conc* inhalation solution 2.5 mg 2.5 mg Nebulizer Shukri Gann PA-C 2.5 mg at 12/02/22 1327 The 10-year ASCVD risk score (Lynne DK, et al., 2019) is: 18.6% Values used to calculate the score: Age: 47 years Sex: Male Is Non- : No Diabetic: Yes Tobacco smoker: Yes Systolic Blood Pressure: 112 mmHg Is BP treated: Yes HDL Cholesterol: 38 mg/dL Total Cholesterol: 219 mg/dL Cardiac Studies: CT Chest 09/19/2023 (scan) EKG 08/28/2023 CONCLUSIONS: Sinus tachycardia Otherwise normal ECG When compared with ECG of 30-NOV-2021 18:29, No significant change was found Ventricular Rate: 113 Atrial Rate: 113 OR Interval: 134 QRS Duration: 100 QT/QTc: 342/469 ms P-R-T Olive: 54 : -1 : 40 degrees Dobutamine Stress Echo 03/09/2022 Interpretation Summary The study is technically adequate for the evaluation of the referral indication. The ultrasound enhancement agent Definity was administered to improve delineation of the endocardial border with good technical results. A focused rest/stress study was performed, per provider request. The stress echo is negative for inducible ischemia. The stress EKG response showed no evidence of ischemia. The heart rate response to pharmacologic stress was normal. An equivocal flat blood pressure response to pharmacologic stress was observed. No symptoms suggestive of angina were reported. Zio 12/11/2021 Impression: Sinus tachycardia, rate 112 beats per minute with rare atrial and ventricular ectopy Exercise Stress Echo 12/01/2021 Interpretation Summary 1. Negative exercise stress ECHO for ischemia at 72% maximal predicted heart rate. Cannot exclude ischemia at higher heart rates. 2. Nondiagnostic exercise stress EKG for ischemia secondary to failure to achieve 85% maximal predicted heart rate. No ischemic changes seen at workload achieved. 3. Poor exercise tolerance achieving 2 minutes on a standard Alfredo protocol. Trinity Jha MS, [facility] Environmental Health And Safety Intern, Cardiology Imaging Program documented in this encounter Plan of Treatment Upcoming Encounters Date Type Department Care Team (Late st Contact Info) Description 10/06/2023 10:40 AM EST Office Visit [facility] [address] [place] [phone] Aleksandra Campos, DO [address] [place] [address] 10/13/2023 6:10 PM EST Pharmacy Pharmacy, [place] [address] [facility], [place] [address] [place] [facility] [address] [facility], [place] [address] 12/14/2023 10:40 AM EST Office Visit Family [facility], [place] [address] [facility], [place] [phone] Velasquez Valencia MD [address] [facility] [address] 12/27/2023 9:30 AM EDT Imaging Radiology [address] [place] [address] 02/02/2024 10:00 AM EDT Procedure Only Endoscopy, [facility] [address] [place] [address] Carlota Rodriguez, [address] [place] [address] Scheduled Orders Name Type Priority Associated Diagnoses Orde r Schedule NM MYOCARD PERF IMG SPECT MULT STUDIES WITH PHARM INTERV Cardiology Routine Chest pain Type 2 diabetes mellitus with hemoglobin A1c goal of less than 7.0% (HCC) Body mass index (BMI) of 40.0 to 44.9 in adult (HCC) Dyslipidemia Tobacco use disorder Expected: 10/31/2023 (Approximate), Expires: 10/31/2024 Health Maintenance Due Date Last Done Comments [...] this encounter Medical Devices Implanted Type Area Commercial Subcontractor Device Identifier Shelf Expiration Date Model / Serial / Lot Suture [place] Dbl Load 5.5mm - [id number] Implanted:Qty: 1 on 12/01/2019 by Judith Condon DO at OR [facility] Right: Shoulder [employer] 09/16/2021 [id number] -2 / / [id number] documented as of this encounter Visit Diagnoses Diagnosis Chest pain- Primary Chest pain, unspecified Type 2 diabetes mellitus with hemoglobin A1c goal of less than 7.0% (HCC) Body mass index (BMI) of 40.0 to 44.9 in adult (HCC) Dyslipidemia Other and unspecified hyperlipidemia Tobacco use disorder documented in this encounter Advance Directives Latest [...] the patient have Health Care Power of Multimedia Designer? No Care Teams Engineering Consultant Relationship Specialty Start Date End Date Velasquez Valencia MD [address] [place] [facility] [place] [address] PCP - General Family Medicine 09/09/22 documented as of this encounter
--- OUTSIDE RECORDS SUMMARY | 2023-10-15 21:48 | External Medical Summary | Summary of Care ---
Author Name Unknown Organization [facility] Address [address] [place] [address] Phone [phone] Care Team Providers Care Textile Designs Sales Representative Name Role Phone Velasquez Valencia MD Primary Care Provider +1- [phone] Reason for Visit * Reason Onset Date Comments Appointment 09/24/2023 Encounter Details Date Type Department Care Team (Late st Contact Info) Description 09/24/2023 Telephone [facility] [address] [place] [address] Velasquez Valencia MD [address] [place] [address] Appointment Allergies Active Allergy Reactions Criticality Noted Date Comments Cefaclor Unknown 07/26/2018 As child Empagliflozin Other (Please comment) 05/16/2021 DKA with hospitalization documented as of this encounter (statuses as of 09/27/2023) Medications Medication Sig Dispensed Refills Start Date [...] as of this encounter (statuses as of 09/27/2023) Active Problems Problem Noted Date Diagnosed Date [...] as of this encounter (statuses as of 09/27/2023) Resolved Problems Problem Noted Date Diagnosed Date Resolved Date Fracture of nasal bones, ini tial encounter for closed fracture 10/23/2021 10/20/2022 Neuropathy 10/23/2021 10/20/2022 Diabetic ketoacidosis withou t coma associated with type 2 diabetes mellitus 03/02/2021 07/04/2021 Intellectual disability 10/25/2019/03/2022 HTN, goal below 130/80 12/18/201710/20 Leg DVT [...] as of this encounter (statuses as of 09/27/2023) Immunizations Name Administration Dates Next Due COVID-19 mRNA, LNP-s, No Pre serve, 2-Dose Series (Pfizer) 10/21/2021,03/01/2021,02/07/2021 H1N1 2009 Influenza, IM 11/04/2009 Pneumococcal Conjugate Vacci ne, 20-valent ([id number]) 07/09/2023 Pneumococcal Polysaccharide PPV23 (Pneumovax) 11/03/2015,02/09/2006 SEASONAL [...] encounter Miscellaneous Notes * Telephone Encounter - Tanesha Goldsmith LPN - 09/27/2023 12:37 PM EST Had appt * Telephone Encounter - Radha Fair LPN - 09/25/2023 10:35 AM EST Attempted to call patient. Recording says enter your ID followed by #. Unable to leave a message * Telephone Encounter - Velasquez Valencia MD - 09/24/2023 4:35 PM EST The bump may have related to a blood draw in the hospital - but this would mean that it involves a superficial vein and these are typically not dangerous. He could just monitor for any worsening and consider weekend clinic or urgent care if worsening over the weekend. * Telephone Encounter - Nely Randhawa OSA - 09/24/2023 2:06 PM EST Patient has been scheduled with Dr. Valencia already. 09/24/2023 Patient has bump by ribs and elbow. The bump by the ribs is warm and this is where stuck him for bloodwork. Please advise. documented in this encounter Plan of Treatment Upcoming Encounters Date Type Department Care Team (Late st Contact Info) Description 10/06/2023 10:40 AM EST Office Visit Sleep Disorders Ctr [facility] [address] [place] [phone] Aleksandra Campos, [address] [place] [address] 10/13/2023 6:10 PM EST Pharmacy Pharmacy, [place] [address] [place] [address] [facility] [address] [facility] [address] 12/14/2023 10:40 AM EST Office Visit [facility] [address] [facility] [phone] Velasquez Valencia MD [address] [place] [facility] [place] [address] 12/27/2023 9:30 AM EDT Imaging Radiology [facility] [facility] [address] [place] [address] 02/02/2024 10:00 AM EDT Procedure Only Endoscopy, [facility] [address] [place] [address] Carlota Rodriguez, DO [address] [place] [address] Health Maintenance Due Date Last Done Comments [...] IN PAST YEAR FOR COPD 09/08/2024 09/08/2023 Depression Screening 09/23/2024 09/23/2023 Lipid Panel 01/06/2028 01/05/2023, 08/18, 01/08/2011, Additional [...] this encounter Medical Devices Implanted Type Area Committee Member Device Identifier Shelf Expiration Date Model / Serial / Lot Suture [place] Dbl Load 5.5mm - [id number] Implanted:Qty: 1 on 12/01/2019 by Judith Condon, DO at OR [facility] Right: Shoulder [employer] 09/16/2021 [id number]-2323BCT -2 / / [id number] documented as of this encounter Advance Directives [...] the patient have Health Care Power of [place] Attendant? No Care Teams Textile Designs Sales Representative Relationship Specialty Start Date End Date Velasquez Valencia MD [address] [place] [address] PCP - General Family Medicine 09/09/22 documented as of this encounter
--- OUTSIDE RECORDS SUMMARY | 2023-10-15 21:48 | External Medical Summary | Summary of Care ---
Author Name Unknown Organization [facility] Address [address] [place] [address] Phone [phone] Care Team Providers Care Product Accountant Name Role Phone Velasquez Valencia MD Primary Care Provider +1- [phone] Encounter Details Date Type Department Care Team (Late st Contact Info) Description 09/21/2023 Orders Only [place] [address] [place] [address] Velasquez Valencia MD [address] [place] [address] Allergies Active Allergy Reactions Criticality Noted Date Comments Cefaclor Unknown 07/26/2018 As child Empagliflozin Other (Please comment) 05/16/2021 DKA with hospitalization documented as of this encounter (statuses as of 09/21/2023) Medications Medication Sig Dispensed Refills Start Date [...] before bedtime. 10.2 g 12 09/20/2023 Active Hospital, Clinic, or Other Facility Administered Medication Ordered Dose Route Frequency Start Date End Date Status Albuterol Sulfate (Proventil) (5 MG/ML) 0.5% *conc* inhalation solution 2.5 mgIndications:Chronic respiratory failure with hypercapnia (HCC) 2.5 mg NEBULIZER PRN 12/01/2022 12/01/2023 Ac tive documented as of this encounter (statuses as of 09/21/2023) Active Problems Problem Noted Date Diagnosed Date [...] as of this encounter (statuses as of 09/21/2023) Resolved Problems Problem Noted Date Diagnosed Date [...] as of this encounter (statuses as of 09/21/2023) Immunizations Name Administration Dates Next Due COVID-19 mRNA, LNP-s, No Pre serve, 2-Dose Series ([employer]) 10/21/2021,03/01/2021,02/07/2021 H1N1 2009 Influenza, IM 11/04/2009 Pneumococcal Conjugate Vacci ne, 20-valent ([id number]) 07/09/2023 Pneumococcal Polysaccharide PPV23 (Pneumovax) 11/03/2015,02/09/2006 SEASONAL [...] Description 10/13/2023 6:10 PM EST Pharmacy Pharmacy, [place] [address] [facility] [place] [address] [facility] [address] [facility] [place] [address] 12/14/2023 10:40 AM EST Office Visit [facility], [place] [address] [facility] [place] [address] Velasquez Valencia MD [address] [place] [facility] [place] [address] 02/02/2024 10:00 AM EDT Procedure Only Endoscopy, [facility] [address] [place] [address] Carlota Rodriguez DO [address] [place] [address] Health Maintenance Due Date Last Done Comments Hepatitis B (1 of 3 - 3-dose series) 1973 HIV Screening 1988 Alpha-1 Antitrypsin 1991 Hepatitis C Screening 1991 Diabetic Eye Exam 03/07/2022 03/07/2021, , 08/28/2010, Additional history exists COVID-19 Vaccine ( season) 2023 10/21/2021, 03/01/2021, 02/07/2021 DISCUSS TOBACCO CESSATION (REFER TO SMARTSET #5710) 10/16/2023 10/16/2022 Albumin/Creatinine Ratio 01/06/2024 023, 09/01/2021, [...] this encounter Medical Devices Implanted Type Area Booking Clerk Device Identifier Shelf Expiration Date Model / Serial / Lot Suture [place] Dbl Load 5.5mm - [id number] Implanted:Qty: 1 on 12/01/2019 by Judith Condon, DO at OR [facility] Right: Shoulder [employer] 09/16/2021 AR-[id number] -2 / / [id number] documented as of this encounter Procedures Procedure Name Priority Date/Time Associated Diagnosis Comments CTA CHEST NON-CORONARY W CONTRAST Routine 09/19/2023 documented in this encounter Results * CTA CHEST NON-CORONARY W CONTRAST (09/19/2023) Anatomical Region Laterality Modality Chest, Cardio, Body Other 09/19/2023 Diogenes Richard MD RAD CT documented in this encounter Advance Directives Latest [...] the patient have Health Care Power of Events Traffic Controller? No Care Teams Product Accountant Relationship Specialty Start Date End Date Velasquez Valencia MD [address] [place] [address] PCP - General Family Medicine 09/09/22 documented as of this encounter
--- OUTSIDE RECORDS SUMMARY | 2023-10-15 21:48 | External Medical Summary | Summary of Care ---
Author Name Unknown Organization [facility] Address [address] [place] [address] Phone [phone] Care Team Providers Care Rod Bending Machine Operator Name Role Phone Velasquez Valencia MD Primary Care Provider +1- [phone] Reason for Visit * Reason Onset Date Comments Appointment 09/24/2023 Encounter Details Date Type Department Care Team (Late st Contact Info) Description 09/24/2023 Telephone [facility] [address] [place] [address] Velasquez Valencia MD [address] [place] [address] Appointment Allergies Active Allergy Reactions Criticality Noted Date Comments Cefaclor Unknown 07/26/2018 As child Empagliflozin Other (Please comment) 05/16/2021 DKA with hospitalization documented as of this encounter (statuses as of 09/24/2023) Medications Medication Sig Dispensed Refills Start Date [...] as of this encounter (statuses as of 09/24/2023) Active Problems Problem Noted Date Diagnosed Date [...] as of this encounter (statuses as of 09/24/2023) Resolved Problems Problem Noted Date Diagnosed Date [...] as of this encounter (statuses as of 09/24/2023) Immunizations Name Administration Dates Next Due COVID-19 mRNA, LNP-s, No Pre serve, 2-Dose Series (Pfizer) 10/21/2021,03/01/2021,02/07/2021 H1N1 2009 Influenza, IM 11/04/2009 Pneumococcal Conjugate Vacci ne, 20-valent ([id number]) 07/09/2023 Pneumococcal Polysaccharide PPV23 (Pneumovax) 11/03/2015,02/09/2006 SEASONAL [...] Description 09/27/2023 11:00 AM EST Office Visit [facility], [place] [address] [facility], [place] [address] Velasquez Valencia [facility] [address] [facility] [address] 10/06/2023 10:40 AM EST Office Visit Sleep Disorders Ctr [facility] [address] [place] [phone] Aleksandra Campos, [address] [place] [address] 10/13/2023 6:10 PM EST Pharmacy Pharmacy, [place] [address] [place] [facility] [place] [address] [facility] [address] [facility] [address] 12/14/2023 10:40 AM EST Office Visit [facility], [place] [address] [facility], [place] [phone] Velasquez Valencia [facility] [address] [facility] [address] 02/02/2024 10:00 AM EDT Procedure Only Endoscopy, [facility] [address] [place] [address] Carlota Rodriguez DO [address] [place] [address] Health Maintenance Due Date Last Done Comments Hepatitis B (1 of 3 - 3-dose series) 1973 HIV Screening 1988 Alpha-1 Antitrypsin 1991 Hepatitis C Screening 1991 Diabetic Eye Exam 03/07/2022 03/07/2021, , 08/28/2010, Additional history exists COVID-19 Vaccine ( season) 2023 10/21/2021, 03/01/2021, 02/07/2021 DISCUSS TOBACCO CESSATION (REFER TO SMARTSET #0031) 10/16/2023 10/16/2022 Albumin/Creatinine Ratio 01/06/2024 023, 09/01/2021, [...] this encounter Medical Devices Implanted Type Area Furnace Door Tender Device Identifier Shelf Expiration Date Model / Serial / Lot Suture [place] Dbl Load 5.5mm - [id number] Implanted:Qty: 1 on 12/01/2019 by Judith Condon, [facility] Right: Shoulder [employer] 09/16/2021 [id number] -2 / / [id number] documented as of this encounter Advance Directives [...] the patient have Health Care Power of Coconut Jelly Roller? No Care Teams Rod Bending Machine Operator Relationship Specialty Start Date End Date Velasquez Valencia MD [address] [place] [address] PCP - General Family Medicine 09/09/22 documented as of this encounter
--- OUTSIDE RECORDS SUMMARY | 2023-10-15 21:48 | External Medical Summary | Summary of Care ---
Author Name Unknown Organization [facility] Address [address] [place] [address] Phone [phone] Care Team Providers Care Online Project Manager Name Role Phone Velasquez Valencia MD Primary Care Provider +1- [phone] Reason for Visit * Reason Onset Date Comments Appointment 09/24/2023 Encounter Details Date Type Department Care Team (Late st Contact Info) Description 09/24/2023 Telephone [facility] [address] [place] [address] Velasquez Valencia MD [address] [place] [address] Appointment Allergies Active Allergy Reactions [...] IM 11/04/2009 Pneumococcal Conjugate Vacci ne, 20-valent ([id number]) 07/09/2023 Pneumococcal Polysaccharide PPV23 (Pneumovax) 11/03/2015,02/09/2006 SEASONAL [...] encounter Miscellaneous Notes * Telephone Encounter - Nely Randhawa OSA [...] Description 09/27/2023 11:00 AM EST Office Visit [facility] [address] [place] [address] Velasquez Valencia MD [address] [place] [address] 10/06/2023 10:40 AM EST Office Visit Sleep Disorders Ctr [facility] [address] [place] [address] Aleksandra Campos, [address] [place] [address] 10/13/2023 6:10 PM EST Pharmacy Pharmacy, [place] [address] [facility], [place] [address] [facility] [address] [facility], [place] [address] 12/14/2023 10:40 AM EST Office Visit Family [facility], [place] [address] [facility], [place] [phone] [facility]quez [facility] [address] [facility] [address] 02/02/2024 10:00 AM EDT Procedure Only Endoscopy, [facility] [address] [place] [address] Carlota Rodriguez, [address] [place] [address] Health Maintenance Due Date Last Done Comments Hepatitis B (1 of 3 - 3-dose series) 1973 HIV Screening 1988 Alpha-1 Antitrypsin 1991 Hepatitis C Screening 1991 Diabetic Eye Exam 03/07/2022 03/07/2021, , 08/28/2010, Additional history exists COVID-19 Vaccine ( season) 2023 10/21/2021, 03/01/2021, 02/07/2021 DISCUSS TOBACCO CESSATION (REFER TO SMARTSET #6103) 10/16/2023 10/16/2022 Albumin/Creatinine Ratio 01/06/2024 023, 09/01/2021, [...] this encounter Medical Devices Implanted Type Area Aircraft Seat Upholsterer Device Identifier Shelf Expiration Date Model / Serial / Lot Suture [place] Dbl Load 5.5mm - [id number] Implanted:Qty: 1 on 12/01/2019 by Judith Condon, DO at OR [facility] Right: Shoulder [employer] 09/16/2021 [id number] -2 / / [id number] documented as of this encounter Advance Directives [...] the patient have Health Care Power of Janitor Helper? No Care Teams Online Project Manager Relationship Specialty Start Date End Date Velasquez Valencia MD [address] [place] [address] PCP - General Family Medicine 09/09/22 documented as of this encounter
--- OUTSIDE RECORDS SUMMARY | 2023-10-15 21:48 | External Medical Summary | Summary of Care ---
Author Name Unknown Organization [facility] Address [address] [place] [address] Phone [phone] Care Team Providers Care Sandblasting Supervisor Name Role Phone Velasquez Valencia MD Primary Care Provider +1- [phone] Reason for Visit * Reason Onset Date Comments Hospital Follow-Up 09/22/2023 Encounter Details Date Type Department Care Team (Late st Contact Info) Description 09/22/2023 Telephone General Internal Medicine [facility] [address] [place] [address] Velasquez Valencia MD [address] [place] [address] Hospital Follow-Up Allergies Active Allergy Reactions Criticality Noted Date Comments Cefaclor Unknown 07/26/2018 As child Empagliflozin Other (Please comment) 05/16/2021 DKA with hospitalization documented as of this encounter (statuses as of 09/22/2023) Medications Medication Sig Dispensed Refills Start Date [...] as of this encounter (statuses as of 09/22/2023) Active Problems Problem Noted Date Diagnosed Date [...] as of this encounter (statuses as of 09/22/2023) Resolved Problems Problem Noted Date Diagnosed Date [...] as of this encounter (statuses as of 09/22/2023) Immunizations Name Administration Dates Next Due COVID-19 mRNA, LNP-s, No Pre serve, 2-Dose Series (Pfizer) 10/21/2021,03/01/2021,02/07/2021 H1N1 2009 Influenza, IM 11/04/2009 Pneumococcal Conjugate Vacci ne, 20-valent ([id number]) 07/09/2023 Pneumococcal Polysaccharide PPV23 (Pneumovax) 11/03/2015,02/09/2006 SEASONAL [...] Miscellaneous Notes * Telephone Encounter - Tati Herman OSA - 09/22/2023 2:18 PM EST I spoke to patient and scheduled with Dr. Campos on 10/06/23 * Telephone Encounter - Isai Quijano RN - 09/22/2023 1:24 PM EST Patient discharged from [facility] after admission for chest pain,hypertensive urgency, hypercapnia and hypoxia. Discharging physician recommends close outpatient follow up with Sleep Medicine. Can you please assist with appointment set up? Thank you documented in this encounter Plan of Treatment Upcoming Encounters Date Type Department Care Team (Late st Contact Info) Description 09/27/2023 11:00 AM EST Office Visit [facility] [address] [address] Velasquez Valencia MD [address] [place] [address] 10/06/2023 10:40 AM EST Office Visit [facility] [address] [place] [address] Aleksandra Campos, [address] [place] [address] 10/13/2023 6:10 PM EST Pharmacy Pharmacy, [place] [address] [facility], [place] [address] [facility] [address] [facility], [place] [address] 12/14/2023 10:40 AM EST Office Visit Family [facility] [place] [address] [facility], [place] [phone] Velasquez Valencia [facility] [address] [facility] [address] 02/02/2024 10:00 AM EDT Procedure Only Endoscopy, [place] [address] [place] [address] Carlota Rodriguez, [address] [place] [address] Health Maintenance Due Date Last Done Comments Hepatitis B (1 of 3 - 3-dose series) 1973 HIV Screening 1988 Alpha-1 Antitrypsin 1991 Hepatitis C Screening 1991 Diabetic Eye Exam 03/07/2022 03/07/2021, , 08/28/2010, Additional history exists COVID-19 Vaccine ( season) 2023 10/21/2021, 03/01/2021, 02/07/2021 DISCUSS TOBACCO CESSATION (REFER TO SMARTSET #4670) 10/16/2023 10/16/2022 Albumin/Creatinine Ratio 01/06/2024 023, 09/01/2021, [...] this encounter Medical Devices Implanted Type Area Custom Tailor Apprentice Device Identifier Shelf Expiration Date Model / Serial / Lot Suture [place] Dbl Load 5.5mm - [id number] Implanted:Qty: 1 on 12/01/2019 by Judith Condon, DO at OR [facility] Right: Shoulder [employer] 09/16/2021 AR-[id number] -2 / / [id number] documented as of this encounter Advance Directives [...] the patient have Health Care Power of Cad Designer? No Care Teams Sandblasting Supervisor Relationship Specialty Start Date End Date Velasquez Valencia MD [address] [place] [address] PCP - General Family Medicine 09/09/22 documented as of this encounter
--- OUTSIDE RECORDS SUMMARY | 2023-10-15 21:48 | External Medical Summary | Summary of Care ---
Author Name Unknown Organization [facility] Address [address] [place] [address] Phone [phone] Care Team Providers Care Perinatal Specialist Name Role Phone Velasquez Valencia MD Primary Care Provider +1- [phone] Reason for Visit * Reason Onset Date Comments Appointment 09/24/2023 Encounter Details Date Type Department Care Team (Late st Contact Info) Description 09/24/2023 Telephone [facility] [address] [place] [address] Velasquez Valencia MD [address] [place] [address] Appointment Allergies Active Allergy Reactions [...] IM 11/04/2009 Pneumococcal Conjugate Vacci ne, 20-valent ([id number]) 07/09/2023 Pneumococcal Polysaccharide PPV23 (Pneumovax) 11/03/2015,02/09/2006 SEASONAL [...] Description 09/27/2023 11:00 AM EST Office Visit [facility] [address] [place] [address] Velasquez Valencia MD [address] [place] [address] 10/06/2023 10:40 AM EST Office Visit [facility] Disorders Ctr [facility] [address] [facility] [place] [address] Aleksandra Campos, [address] [place] [address] 10/13/2023 6:10 PM EST Pharmacy Pharmacy, [place] [address] [facility], [place] [address] [facility] [address] [facility], [place] [address] 12/14/2023 10:40 AM EST Office Visit Family [facility], [place] [address] [facility], [place] [address] Velasquez Valencia MD [address] [facility] [address] 02/02/2024 10:00 AM EDT Procedure Only Endoscopy, [facility] [address] [place] [address] Carlota Rodriguez, [address] [place] [address] Health Maintenance Due Date Last Done Comments Hepatitis B (1 of 3 - 3-dose series) 1973 HIV Screening 1988 Alpha-1 Antitrypsin 1991 Hepatitis C Screening 1991 Diabetic Eye Exam 03/07/2022 03/07/2021, , 08/28/2010, Additional history exists COVID-19 Vaccine ( season) 2023 10/21/2021, 03/01/2021, 02/07/2021 DISCUSS TOBACCO CESSATION (REFER TO SMARTSET #6804) 10/16/2023 10/16/2022 Albumin/Creatinine Ratio 01/06/2024 023, 09/01/2021, [...] this encounter Medical Devices Implanted Type Area Carburetor Rebuilder Device Identifier Shelf Expiration Date Model / Serial / Lot Suture [place] Dbl Load 5.5mm - [id number] Implanted:Qty: 1 on 12/01/2019 by Judith Condon, DO at OR [facility] Right: Shoulder [employer] 09/16/2021 AR-[id number] -2 / / [id number] documented as of this encounter Advance Directives [...] the patient have Health Care Power of Supervisor Mold Shop? No Care Teams Perinatal Specialist Relationship Specialty Start Date End Date Velasquez Valencia MD [address] [place] [address] PCP - General Family Medicine 09/09/22 documented as of this encounter
--- OUTSIDE RECORDS SUMMARY | 2023-10-15 21:48 | External Medical Summary | Summary of Care ---
Author Name Unknown Organization [facility] Address [address] [place] [address] Phone [phone] Care Team Providers Care Visual Aid Expert Name Role Phone Velasquez Valencia MD Primary Care Provider +1- [phone] Reason for Visit * Reason Onset Date Comments Appointment 09/24/2023 Encounter Details Date Type Department Care Team (Late st Contact Info) Description 09/24/[address] [facility] [address] [place] [address] Velasquez Valencia MD [address] [place] [address] Appointment Allergies Active Allergy Reactions Criticality Noted Date Comments Cefaclor Unknown 07/26/2018 As child Empagliflozin Other (Please comment) 05/16/2021 DKA with hospitalization documented as of this encounter (statuses as of 09/25/2023) Medications Medication Sig Dispensed Refills Start Date [...] as of this encounter (statuses as of 09/25/2023) Active Problems Problem Noted Date Diagnosed Date [...] as of this encounter (statuses as of 09/25/2023) Resolved Problems Problem Noted Date Diagnosed Date [...] as of this encounter (statuses as of 09/25/2023) Immunizations Name Administration Dates Next Due COVID-19 mRNA, LNP-s, No Pre serve, 2-Dose Series (Pfizer) 10/21/2021,03/01/2021,02/07/2021 H1N1 2009 Influenza, IM 11/04/2009 Pneumococcal Conjugate Vacci ne, 20-valent ([id number]) 07/09/2023 Pneumococcal Polysaccharide PPV23 (Pneumovax) 11/03/2015,02/09/2006 SEASONAL [...] encounter Miscellaneous Notes * Telephone Encounter - Radha Fair LPN [...] Description 09/27/2023 11:00 AM EST [facility] [address] [facility] [phone] Velasquez Valencia [facility] [address] [facility] [address] 10/06/2023 10:40 AM EST Office Visit [facility] [address] [place] [phone] Aleksandra Campos, [address] [facility] [place] [address] 10/13/2023 6:10 PM EST Pharmacy Pharmacy, [place] [address] [facility] [address] [facility] [address] [facility] [address] 12/14/2023 10:40 AM EST Office [facility] [address] [facility] [phone] Velasquez Valencia MD [address] [facility] [address] 02/02/2024 10:00 AM EDT Procedure Only Endoscopy, [facility] [address] [place] [address] Carlota Rodriguez, [address] [place] [address] Health Maintenance Due Date Last Done Comments Hepatitis B (1 of 3 - 3-dose series) 1973 HIV Screening 1988 Alpha-1 Antitrypsin 1991 Hepatitis C Screening 1991 Diabetic Eye Exam 03/07/2022 03/07/2021, , 08/28/2010, Additional history exists COVID-19 Vaccine ( season) 2023 10/21/2021, 03/01/2021, 02/07/2021 DISCUSS TOBACCO CESSATION (REFER TO SMARTSET #5500) 10/16/2023 10/16/2022 Albumin/Creatinine Ratio 01/06/2024 023, 09/01/2021, [...] encounter Medical Devices Implanted Type Area Community Recreation Programmer Device Identifier Shelf Expiration Date Model / Serial / Lot Suture [place] Dbl Load 5.5mm - [id number] Implanted:Qty: 1 on 12/01/2019 by Judith Condon, DO at OR [facility] Right: Shoulder [employer] 09/16/2021 AR-2323BCT -2 / / [id number] documented as of this encounter Advance Directives [...] the patient have Health Care Power of Spool Sorter? No Care Teams Visual Aid Expert Relationship Specialty Start Date End Date Velasquez Valencia MD [address] [place] [address] PCP - General Family Medicine 09/09/22 documented as of this encounter
--- NOTE | 2023-10-15 22:26 | History & Physical Report ---
Date of Service October 15, 2023 Assessment & Plan (1) Left ankle pain: Plan: 47-year-old male with past medical history significant for type 2 diabetes, diabetic neuropathy, chronic respiratory failure with hypercapnia, obstructive sleep apnea, COPD, restrictive lung disease, hyperlipidemia, morbid obesity, gastroparesis, irritable bowel syndrome, GERD, history of DVT, cervical spinal stenosis, presents with left ankle pain going on for several months. Patient states saw PCP and advised for x-ray but he did not get it so far. Sometimes pain is severe that he cannot put weight on the leg. Currently pain is about 8 /10 in severity. Denies any injuries. No fevers. Currently resting comfortably and hemodynamically stable. Denies any headache. No runny nose or sore throat. No cough. No chest pain or shortness of breath. No nausea vomiting. No abdominal pain. Normal bladder movements. Bowels alternate with constipation and diarrhea. Left ankle pain MRI left ankle. Findings suggestive of osteonecrosis of the talus with chronic mid- body fracture disrupting the articular surface. Secondary osteoarthritic changes of the tibiotalar joint. Moderate joint effusion with synovitis. Degenerative changes seen in the calcaneus. Chronic injury of the calcaneal fibular ligament. Muscle strain ER was able to discuss with podiatry and recommended boot Will monitor in the hospital look for any signs of infection Pain controlled Consult podiatry for further recommendations Obstructive sleep apnea CPAP nightly Says currently his CPAP machine has been getting adjusted for settings. So not using currently History of COPD Restrictive lung disease Chronic respiratory hypercapnia Continue home inhalers Will monitor Diabetes Continue home long-acting insulin Insulin sliding scale Will monitor the blood sugars Hypertension On hydrochlorothiazide, losartan and metoprolol succinate and spironolactone Will monitor DVT prophylaxis Lovenox Disposition Medical floor Full code History of Present Illness Chief Complaint: Left ankle pain Primary Care Provider: Velasquez Valencia MD 47-year-old male with past medical history significant for type 2 diabetes, diabetic neuropathy, chronic respiratory failure with hypercapnia, obstructive sleep apnea, COPD, restrictive lung disease, hyperlipidemia, morbid obesity, gastroparesis, irritable bowel syndrome, GERD, history of DVT, cervical spinal stenosis, presents with left ankle pain going on for several months. Patient states saw PCP and advised for x-ray but he did not get it so far. Sometimes pain is severe that he cannot put weight on the leg. Currently pain is about 8 /10 in severity. Denies any injuries. No fevers. Currently resting comfortably and hemodynamically stable. Denies any headache. No runny nose or sore throat. No cough. No chest pain or shortness of breath. No nausea vomit ing. No abdominal pain. Normal bladder movements. Bowels alternate with constipation and diarrhea. Past medical history. As mentioned above Past surgical history. Right shoulder arthroscopy. Colonoscopy. EGD. Injection of lumbosacral spine. Knee arthroscopy. Tonsillectomy. Social history. . Smokes 1.5 pack. Day for 33 years. Alcohol rarely. No drugs currently . Family history. Sister has arthritis. Father has COPD, hypertension. Mother has diabetes. Dyslipidemia. Hypertension. Maternal grandmother had diabetes. Paternal grandmother had diabetes. Uncle had diabetes. Allergies Allergy/AdvReac Type Severity Reaction Status Date / Time cefaclor [From Ceclor] Allergy Unknown childhood Verified 10/15/23 19:03 allergy ? Cephalosporins Allergy Unknown Unknown Verified 10/15/23 19:03 empagliflozin AdvReac Unknown put me Verified 10/15/23 19:03 [From Jardiance] into ketoacidosis? NSAIDS (Non-Steroidal AdvReac Unknown use with Verified 10/15/23 19:03 Anti-Inflamma caution : hx esophagus damage Home Medications Medication Instructions Recorded Confirmed Type insulin aspart U-100 100 unit/mL 18 unit subcut TID 06/09/19 10/15/23 History (3 mL) subcutaneous pen (Novolog FlexPen U-100 Insulin aspart) dicyclomine 10 mg capsule 10 mg PO QID PRN Diarrhea 05/01/20 10/15/23 History famotidine 20 mg tablet 20 mg PO HS 07/13/20 10/15/23 History docusate sodium 100 mg capsule 100 mg PO BID PRN Constipation 02/25/21 10/15/23 History (Col-Rite) pantoprazole 40 mg tablet,delayed 40 mg PO BID 02/25/21 10/15/23 History release metformin 500 mg tablet 1,000 mg PO BID 08/26/21 10/15/23 History cyclobenzaprine 10 mg tablet 10 mg PO HS muscle spasms 09/06/22 10/15/23 History gabapentin 100 mg capsule See Rx Instructions .Route .COMPLEX 09/06/22 10/15/23 History insulin glargine 100 unit/mL (3 See Rx Instructions .Route .COMPLEX 09/06/22 10/15/23 History mL) subcutaneous pen (Lantus Solostar U-100 Insulin) metoclopramide HCl 10 mg tablet 10 mg PO TID 09/06/22 10/15/23 History budesonide-formoterol HFA 80 2 puff inhalation BID 02/08/23 10/15/23 History mcg-4.5 mcg/actuation aerosol inhaler (Symbicort) tirzepatide 15 mg/0.5 mL 15 mg subcut WK 09/19/23 10/15/23 History subcutaneous pen injector (Rennyro) aspirin 81 mg tablet,delayed 81 mg PO QAM #30 tabs 09/22/23 10/15/23 Rx release atorvastatin 20 mg tablet 20 mg PO QAM #30 tabs 09/22/23 10/15/23 Rx hydrochlorothiazide 25 mg tablet 25 mg PO QAM #30 tabs 09/22/23 10/15/23 Rx losartan 100 mg tablet 100 mg PO DAILY #30 tabs 09/22/23 10/15/23 Rx metoprolol succinate 100 mg 100 mg PO QAM #30 tabs 09/22/23 10/15/23 Rx tablet,extended release 24 hr (Toprol XL) metoprolol succinate 50 mg 50 mg PO QPM #30 tabs 09/22/23 10/15/23 Rx tablet,extended release 24 hr spironolactone 25 mg tablet 25 mg PO QAM #30 tabs 09/22/23 10/15/23 Rx albuterol sulfate 90 mcg/actuation 3 inh inhalation Q6H PRN 10/15/23 10/15/23 History aerosol inhaler WHEEZING/SOB ibuprofen 125 mg-acetaminophen 250 3 tab PO BID 10/15/23 10/15/23 History mg tablet (Dual Action Pain Reliever) Past Med/Surg History Medical History Sleep apnea Multiple pulmonary nodules determined by computed tomography of lung Arthritis Low magnesium level History of RSV infection & flu a few months ago. Tachycardia chronic high heart rate - unknown etiology - a few months ago increased dose of metoprolol. Rhinovirus dx May 23 [facility] & another illness dx - ? name of /antibiotic and inhalers for. feeling better: only symptom : sore throat. COPD (chronic obstructive pulmonary disease) ? dx of Peripheral neuropathy Diabetes mellitus, type 2 Hypertension Tobacco use Restrictive lung disease Elevated liver function tests History of DVT (deep vein thrombosis) "years ago">no known cause Tussive syncope "occurred only one time, no recent issues" Esophagitis Osteoarthritis Hx of pancreatitis resolved GERD (gastroesophageal reflux disease) Cardiac murmur A CHILD Erectile dysfunction MRSA (methicillin resistant Staphylococcus aureus) carrier over 2 yrs ago>"not sure where it was" Intellectual disability Obstructive sleep apnea cpap Obesity IBS (irritable bowel syndrome) History of ventricular tachycardia "nonsustained" Surgical History History of appendectomy 02/10/2023 History of reduction of nasal fracture 09/25/21-Dr. Garcia Status post incision and drainage LLE History of shoulder surgery right-2019 H/O foot surgery LEFT-2018 History of arthroscopy LEFT [id number] History of esophagogastroduodenoscopy (EGD) History of colonoscopy with most recent attempt: failed prep. Told would need a 2 day prep prior to colonoscopy in Sep 2023. History of tooth extraction History of tonsillectomy and adenoidectomy 1979 Family History Brother Family history of diabetes mellitus Environmental allergies Asthma Mother Family history of diabetes mellitus Hypertension Environmental allergies Father Family history of diabetes mellitus Hypertension Heart disease Grandfather (Paternal) Lung cancer smoker Aunt Bleeding disorder Other No family history of adverse response to anesthesia Social History Smoking Status: Current every day smoker Tobacco Type: Cigarettes Age Started Using Tobacco: 14; Cigarettes Per Day: 1 pack; Second Hand Exposure: No; Do You Dip or Chew Tobacco: No; Tobacco Cessation Education Requested by Patient: No Hx Alcohol Use: Yes Alcohol type: beer Alcohol Intake Frequency: Monthly or Less Alcohol Intake Frequency Comment: seldom, a couple times per year if that per pt Hx Substance Use: No Preferred Language: Citizen Of [place] Communication Ability: Effective Software Development Intern Required: No Beliefs That Will Affect Care: None marital status: / marital status details: single at this time Current Living Situation: Significant Other Current Living Situation Comment: with Ni and dog, in home, 1 JING current occupational status: employed 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 ENT- oropharynx clear Neck- supple, no JVD. Lungs- clear to auscultation no wheezing or crackles. Heart- regular rhythm; no murmur, no gallop. Abdomen- normal bowel sounds, soft, nontender, no distension. Extremities- left ankle medial side mild edema and tender to palpation. Neuro- alert, oriented x 3; PERRL, no facial palsy; no dysarthria; moves extremities. Skin- warm & dry Results & Data Results & Data Vital Signs (Past 12 Hours) Vital Signs Temp Pulse Pulse Resp BP BP Pulse Ox 10/15/23 21:00 103 H 22 130/82 94 10/15/23 19:24 105 H 14 114/80 95 10/15/23 17:05 105 H 14 113/73 94 10/15/23 14:08 36.8 C 118 H 20 102/62 94 O2 Del Method 10/15/23 21:00 Room Air 10/15/23 19:24 Room Air 10/15/23 17:05 Room Air 10/15/23 14:08 Room Air Diagnostic Findings Laboratory Results WBC 8.81 K/ul (4.8-10.8) 10/15/23 Unknown RBC 5.17 M/uL (4.70-6.10) 10/15/23 Unknown Hgb 14.1 g/dl (14.0-18.0) 10/15/23 Unknown Hct 41.8 % (42.0-52.0) L 10/15/23 Unknown MCV 80.9 fL (80.0-100.0) 10/15/23 Unknown MCH 27.3 pg (25.0-34.0) 10/15/23 Unknown MCHC 33.7 g/dL (32.0-36.0) 10/15/23 Unknown RDW Std Deviation 40.1 fL (36.4-46.3) 10/15/23 Unknown RDW Coeff of Abiodun 13.7 % (11.5-14.5) 10/15/23 Unknown Plt Count 219 K/uL (130-400) 10/15/23 Unknown MPV 9.5 fL (9.4-12.4) 10/15/23 Unknown Immature Gran % (Auto) 0.9 % 10/15/23 Unknown Neut % (Auto) 55.5 % 10/15/23 Unknown Lymph % (Auto) 28.3 % 10/15/23 Unknown [place] % (Auto) 9.0 % 10/15/23 Unknown Eos % (Auto) 5.4 % 10/15/23 Unknown Baso % (Auto) 0.9 % 10/15/23 Unknown Neut # (Auto) 4.89 K/uL (1.40-6.50) 10/15/23 Unknown Lymph # (Auto) 2.49 K/uL (1.20-3.40) 10/15/23 Unknown [place] # (Auto) 0.79 K/uL (0.11-0.59) H 10/15/23 Unknown Eos # (Auto) 0.48 K/uL (0.00-0.50) 10/15/23 Unknown Baso # (Auto) 0.08 K/uL (0.00-0.20) 10/15/23 Unknown Immature Gran # (Auto) 0.08 K/uL (0.01-0.20) 10/15/23 Unknown Sodium 139 mmol/L (136-145) 10/15/23 Unknown Potassium 4.5 mmol/L (3.5-5.1) 10/15/23 Unknown Chloride 103 mmol/L (98-107) 10/15/23 Unknown Carbon Dioxide 28 mmol/L (21-32) 10/15/23 Unknown Anion Gap 8 (3-11) 10/15/23 Unknown BUN 27 mg/dl (6-23) H 10/15/23 Unknown Creatinine 1.09 mg/dl (0.6-1.4) 10/15/23 Unknown Est Cr Clr Drug Dosing 121.1 ml/min 10/15/23 Unknown Est GFR ( Amer) 91.9 ml/min 10/15/23 Unknown Est GFR (Non-Af Amer) 79.3 ml/min 10/15/23 Unknown BUN/Creatinine Ratio 24.8 (10-20) H 10/15/23 Unknown Glucose 185 mg/dl (70-99(Fasting)) H 10/15/23 Unknown Uric Acid 6.7 mg/dl (2.6-7.2) 10/15/23 Unknown Calcium 9.2 mg/dl (8.6-10.3) 10/15/23 Unknown Total Bilirubin 0.5 mg/dl (0.2-1.0) 10/15/23 Unknown AST 41 U/L (13-39) H 10/15/23 Unknown ALT 65 U/L (7-52) H 10/15/23 Unknown Alkaline Phosphatase 62 U/L (34-104) 10/15/23 Unknown Total Protein 7.1 gm/dl (6.0-8.3) 10/15/23 Unknown Albumin 3.9 gm/dl (3.4-5.0) 10/15/23 Unknown Globulin 3.2 gm/dl (2.5-4.0) 10/15/23 Unknown Albumin/Globulin Ratio 1.2 (0.9-2) 10/15/23 Unknown Lyme Disease IgG Ab Negative (Negative) 10/15/23 Unknown Lyme Disease IgM Ab Negative (Negative) 10/15/23 Unknown Impressions Venous Doppler Study 10/15/23 14:21 LEFT LOWER EXTREMITY VENOUS DOPPLER HISTORY: Acute pain and swelling of the left lower leg L foot, ankle and L calf pain, atraumatic COMPARISON STUDY: 07/29/2018 FINDINGS: There is normal compressibility, flow, and augmentation within the left lower extremity deep venous system. IMPRESSION: No DVT within the left lower extremity. ACT 112: Negative or not required by law. Electronically signed by: Gil Hilliard M.D. 10/15/2023 3:56 PM Ankle X-Ray 10/15/23 16:58 XR ankle LT min 3V routine, XR foot LT min 3V routine CLINICAL HISTORY: L foot, ankle and L calf pain, atraumatic TECHNIQUE: 3 views of the left ankle and 3 views of the left foot were obtained. Comparison: None available at the time of this dictation. FINDINGS: There is a angulated fracture of the calcaneus. Well-corticated density adjacent to the navicular bone likely represents an os navicularis. The joint spaces are well preserved. The ankle mortise is intact. Soft tissue swelling is seen about the ankle. IMPRESSION: There is an angulated fracture of the calcaneus with associated soft tissue swelling. ACT 112: Negative or not required by law. Electronically signed by: Jovanni Burris M.D. 10/15/2023 6:07 PM Foot X-Ray 10/15/23 16:58 XR ankle LT min 3V routine, XR foot LT min 3V routine CLINICAL HISTORY: L foot, ankle and L calf pain, atraumatic TECHNIQUE: 3 views of the left ankle and 3 views of the left foot were obtained. Comparison: None available at the time of this dictation. FINDINGS: There is a angulated fracture of the calcaneus. Well-corticated density adjacent to the navicular bone likely represents an os navicularis. The joint spaces are well preserved. The ankle mortise is intact. Soft tissue swelling is seen about the ankle. IMPRESSION: There is an angulated fracture of the calcaneus with associated soft tissue swelling. ACT 112: Negative or not required by law. Electronically signed by: Jovanni Burris M.D. 10/15/2023 6:07 PM Ankle MRI 10/15/23 18:31 Exam(s): MRI LEFT ANKLE Without Contrast EXAM: MR Left Lower Extremity Without Intravenous Contrast, Ankle CLINICAL HISTORY: Reason for exam: atraumatic ankle pain, fracture, tachycardia. TECHNIQUE: Multiplanar magnetic resonance images of the left ankle without intravenous contrast. COMPARISON: Left ankle radiographs 10/15/23 FINDINGS: Syndesmotic ligaments are intact. Anterior talofibular ligament and posterior talofibular ligament are intact. Thickening of the calcaneofibular ligament is consistent with chronic sprain. Deltoid ligament is intact, with increased intrasubstance signal suggesting old injury. There is abnormal curvilinear signal and cystic changes within the talus, with surrounding marrow changes. Findings may reflect osteonecrosis of the talus. There is an associated chronic mid-talar fracture extending to the central talar dome with articular surface irregularity. There is secondary osteoarthritic change of the tibiotalar joint. There is a moderate joint effusion with synovitis. There is subtalar joint degeneration. Marrow signal changes within the calcaneus are likely on a degenerative basis. There is no evidence of acute fracture or dislocation. Achilles tendon and plantar aponeurosis are intact. There is a short segment longitudinal split tear of the peroneus brevis tendon. Peroneus longus tendon is intact. Medial flexor tendons and anterior extensor tendons are intact. There is edema within the flexor hallucis longus muscle. IMPRESSION: 1. Findings suggestive of osteonecrosis of the talus with chronic mid- body fracture disrupting the articular surface. Secondary osteoarthritic changes of the tibiotalar joint. Moderate joint effusion with synovitis. 2. Subtalar joint degeneration with degenerative marrow signal in the calcaneus. 3. Chronic injury of the calcaneofibular ligament. Chronic injury of the deltoid ligament. 4. Short segment split tear of the peroneus brevis tendon. 5. Edema within the flexor hallucis longus muscle suggesting muscle strain. Electronically signed by: Diana Hernandez M.D. 10/15/23 20:24 PM Code Status & VTE Plan VTE Prophylaxis Plan VTE Prophylaxis will be ordered: Yes
[2023-10-15] MEDS ORDERED: ALBUTEROL HFA 8 GM INHALER INH PRN (23:54)
[2023-10-15] MEDS ORDERED: GLUCAGON FOR INJ 1 MG VIAL SQ PRN (23:54)
[2023-10-15] MEDS ORDERED: GLUCOSE 10 TAB/TUBE PO PRN (23:54)
[2023-10-15] MEDS ORDERED: DOCUSATE SODIUM 100 MG CAP PO PRN (23:54)
[2023-10-15] MEDS ORDERED: POLYETHYLENE (MIRALAX) 17 GM PACK PO PRN (23:54)
[2023-10-15] MEDS ORDERED: DEXTROSE 50% 50 ML SYRINGE IV PRN (23:54)
[2023-10-15] MEDS ORDERED: CARBOHYDRATES FOR HYPOGLYCEMIA PO PRN (23:54)
[2023-10-15] MEDS ORDERED: GLUCOSE 40% GEL 15 GM TUBE PO PRN (23:54)
[2023-10-16] MEDS: INSULIN ASPART PER UNIT CHARGE SC SCH ×5 (00:24→20:37)
[2023-10-16] MEDS: LANTUS PER UNIT CHARGE SQ SCH ×2 (00:24→20:37)
[2023-10-16] MEDS: oxyCODONE HCL IR 5 MG TAB (IMMEDIATE RELEASE) PO PRN ×3 (00:29→20:31)
[2023-10-16] MEDS: PANTOprazole 40 MG TAB PO SCH ×3 (00:30→20:31)
[2023-10-16] MEDS: METOPROLOL SUCC 50MG EXT REL TAB PO SCH ×3 (00:30→20:31)
[2023-10-16] MEDS: GABAPENTIN 100 MG CAP PO SCH ×3 (00:30→20:31)
[2023-10-16] MEDS: FAMOTIDINE 20 MG TAB PO SCH ×2 (00:30→20:32)
[2023-10-16] MEDS: CYCLOBENZAPRINE HCL 10 MG TAB PO SCH ×2 (00:30→20:32)
[2023-10-16] MEDS: ENOXAPARIN INJ 40 MG/0.4 ML SYR SQ SCH (05:31)
[2023-10-16] MEDS: DICYCLOMINE HCL 10 MG CAP PO PRN (06:18)
[2023-10-16] MEDS: ASPIRIN 81 MG ECTAB PO SCH (08:15)
[2023-10-16] MEDS: FLUTICASONE/VILANTEROL 100/25MCG 14 PUFFS/INHALER INH SCH (08:15)
[2023-10-16] MEDS: METOCLOPRAMIDE HCL 10 MG TABLET PO SCH ×3 (08:15→17:09)
[2023-10-16] MEDS: ATORVASTATIN 20 MG TAB PO SCH (08:15)
[2023-10-16] MEDS: hydroCHLOROthiazide 25 MG TAB PO SCH (08:15)
[2023-10-16] MEDS: LOSARTAN POTASSIUM 50 MG TAB PO SCH (08:16)
[2023-10-16] MEDS: SPIRONOLACTONE 25 MG TAB PO SCH (08:16)
[2023-10-16] MEDS: LANTUS PER UNIT CHARGE SC SCH (08:18)
[2023-10-16 08:48] LABS: Basophils # (auto) 0.09 K/uL (0.00-0.20); Basophils % (auto) 0.9 %; Eosinophils # (auto) 0.49 K/uL (0.00-0.50); Eosinophils % (auto) 4.9 %; Hematocrit (blood only) 41.3 % (42.0-52.0); Hemoglobin 13.1 g/dl (14.0-18.0); Immature Granulocytes # (auto) 0.15 K/uL (0.01-0.20); Immature Granulocytes % (auto) 1.5 %; Lymphocytes # (auto) 2.89 K/uL (1.20-3.40); Lymphocytes % (auto) 28.9 %; Mean Corpuscular Hemoglobin 26.4 pg (25.0-34.0); Mean Corpuscular Hgb Conc 31.7 g/dL (32.0-36.0); Mean Corpuscular Volume 83.1 fL (80.0-100.0); Mean Platelet Volume 9.6 fL (9.4-12.4); Monocytes # (auto) 1.02 K/uL (0.11-0.59); Monocytes % (auto) 10.2 %; Neutrophils # (auto) 5.37 K/uL (1.40-6.50); Neutrophils % (auto) 53.6 %; Platelet Count 213 K/uL (130-400); RDW Coefficient of Variation 13.9 % (11.5-14.5); RDW Standard Deviation 41.7 fL (36.4-46.3); Red Blood Count 4.97 M/uL (4.70-6.10); White Blood Count 10.01 K/ul (4.8-10.8)
[2023-10-16 09:03] LABS: BUN Creatinine Ratio 27.3 (10-20); Calcium 8.5 mg/dl (8.6-10.3); Creatinine Clr Calc Pharmacy 113.4 ml/min; Est GFR (Non-African American) 69.9 ml/min; Magnesium 1.5 mg/dl (1.7-2.4); Potassium 4.7 mmol/L (3.5-5.1)
[2023-10-16 10:22] LABS: Estimated Average Glucose 206 mg/dl; Hemoglobin A1C 8.8 % (4.5-5.6)
--- NOTE | 2023-10-16 10:36 | Hospitalist Progress Note ---
Date of Service October 16, 2023 Assessment & Plan (1) Charcot's joint arthropathy in type 2 diabetes mellitus: (2) Left ankle pain: (3) Osteonecrosis: (4) Acute pain of left lower extremity: (5) Sleep apnea: Plan 47yoM with past medical history significant for type 2 diabetes, diabetic neuropathy, chronic respiratory failure with hypercapnia, obstructive sleep apnea, COPD, restrictive lung disease, hyperlipidemia, morbid obesity, gastroparesis, irritable bowel syndrome, GERD, history of DVT, cervical spinal stenosis, presents with left ankle pain going on for several months. Left ankle pain Osteonecrosis MRI left ankle. Findings suggestive of osteonecrosis of the talus with chronic mid- body fracture disrupting the articular surface. Podiatry consulted- will possibly require tibiotalocalcaneal hindfoot arthrodesis Using boot with ambulation in the meantime Pain control Appreciate podiatry recs Obstructive sleep apnea CPAP nightly Says currently his CPAP machine has been getting adjusted for settings. So not using currently History of COPD Restrictive lung disease Chronic respiratory hypercapnia Continue home inhalers Will monitor Diabetes Continue home long-acting insulin Insulin sliding scale Hypertension On hydrochlorothiazide, losartan and metoprolol succinate and spironolactone Will monitor DVT prophylaxis: Lovenox Full code Admission and Anticipated Discharge Date Admission Date: October 15, 2023 Subjective Pt was seen laaying in bed. Stated that the ankle pain had gotten better. Stated that he had already been seen by Podiatry. Review of Systems Review of Systems: All systems reviewed & are unremarkable except as noted in Subjective Physical Exam Physical Exam: General: Alert, oriented. No acute distress Psych: Appropriate mood and affect Neuro: No gross deficits HEENT: NC/AT CV: RRR Resp: Breath sounds clear bilaterally, no increased effort of breathing. Abdomen:Soft, nontender, nondistended. Extremities: No noted erythema or swelling of ankle Results & Data Results & Data Vital Signs (Past 12 Hours) Vital Signs Temp Pulse Pulse Resp BP BP Pulse Ox 10/16/23 06:37 37 C 80 20 104/68 94 10/15/23 23:45 10/15/23 23:45 36.7 C 103 H 20 134/70 94 10/15/23 23:02 100 H 16 122/86 99 10/15/23 22:50 98 H 14 12/29/23 22:40 100 H 12 O2 Del Method 10/16/23 06:37 Room Air 10/15/23 23:45 Room Air 10/15/23 23:45 Room Air 10/15/23 23:02 Room Air 10/15/23 22:50 10/15/23 22:40 (5) Sleep apnea Sleep apnea type: unspecified type Qualified Code(s): G47.30 - Sleep apnea, unspecified
[2023-10-16] MEDS: MAGNESIUM SULFATE / D5W 1 GM/100 ML BAG IV SCH ×2 (10:45→12:45)
--- NOTE | 2023-10-16 13:51 | CT Scan Report ---
CT ankle LT wo con HISTORY: 47 years-old Male AVN with talus fracture Chronic left ankle pain with avascular necrosis. COMPARISON: MRI left ankle 10/15/2023, radiographs 10/15/2023, CT October 18, 2017. TECHNIQUE: Multiple axial CT images of the left ankle were obtained without the use of IV contrast. A dose lowering technique was used consistent with the principals of ALARA. FINDINGS: Chronic ununited peripherally corticated intra-articular fracture of the mid talus is noted with frac ture line extending into the mid, medial and lateral aspects of the talar dome and also into the midd le and posterior facets of the talus. This demonstrates prominent subcortical cystic changes with bon y fragmentation resulting in numerous intra-articular subcentimeter loose bodies. There is flattening of the articular head of the talus with moderate tibiotalar degeneration. Fused os trigonum. Moderat e-sized calcaneal enthesophytes. Mild midfoot and hindfoot osteoarthritis. There is diffusely increas ed sclerosis of the talus. Tendons and ligaments are not well evaluated by CT technique. IMPRESSION: 1. Chronic ununited intra-articular talar fracture with prominent subcortical cystic change suggestiv e of pseudoarticulation. There is chronic articular flattening of the talus with numerous intra-artic ular subcentimeter bone fragments/loose bodies. 2. Mild midfoot and hindfoot osteoarthritis with spurring of the calcaneus. 3. Moderate tibiotalar degeneration. 4. Diffusely increased sclerosis of the talus suggestive of avascular necrosis. ACT 112: Negative or not required by law. The above report was generated using voice recognition software. It may contain grammatical, syntax o r spelling errors. Dictated: 10/16/2023 11:29 AM Transcribed: 10/16/2023 12:48 PM Darnell [id number] [email or web address] Electronically signed by: Gil Hilliard M.D. 10/16/2023 1:50 PM
--- NOTE | 2023-10-16 16:00 | Orthopedic Consultation ---
Date of Consultation October 16, 2023 Assessment & Plan (1) Osteonecrosis: Patient seen, evaluated, and treated. I have reviewed plain films x-ray, CT, and MRI and findings. The left talus shows fracture with significant sclerosis associated with AVN. Patient will require tibiotalocalcaneal hindfoot arthrodesis. We did discuss this procedure in detail. This procedure is planned for 10/20/22 Thank you for allowing me to participate in the care of this Patient. (2) Left ankle pain: (3) Acute pain of left lower extremity: (4) Charcot's joint arthropathy in type 2 diabetes mellitus: History of Present Illness Attending Physician: Rose Lanza MD History of Present Illness Patient is a 47-year-old male seen at bedside in room 361-1 for left foot and ankle pain. Patient has a past medical history significant for type 2 diabetes, diabetic neuropathy, chronic respiratory failure with hypercapnia, obstructive sleep apnea, COPD, restrictive lung disease, hyperlipidemia, morbid obesity, gastroparesis, irritable bowel syndrome, GERD, history of DVT, cervical spinal stenosis. Patient states pain increasingly worsening over past few months. Allergies Allergy/AdvReac Type Severity Reaction Status Date / Time cefaclor [From Ceclor] Allergy Unknown childhood Verified 10/15/23 19:03 allergy ? Cephalosporins Allergy Unknown Unknown Verified 10/15/23 19:03 empagliflozin AdvReac Unknown put me Verified 10/15/23 19:03 [From Jardiance] into ketoacidosis? NSAIDS (Non-Steroidal AdvReac Unknown use with Verified 10/15/23 19:03 Anti-Inflamma caution : hx esophagus damage Home Medications Medication Instructions Recorded Confirmed Type insulin aspart U-100 100 unit/mL 18 unit subcut TID 06/09/19 10/15/23 History (3 mL) subcutaneous pen (Novolog FlexPen U-100 Insulin aspart) dicyclomine 10 mg capsule 10 mg PO QID PRN Diarrhea 05/01/20 10/15/23 History famotidine 20 mg tablet 20 mg PO HS 07/13/20 10/15/23 History docusate sodium 100 mg capsule 100 mg PO BID PRN Constipation 02/25/21 10/15/23 History (Col-Rite) pantoprazole 40 mg tablet,delayed 40 mg PO BID 02/25/21 10/15/23 History release metformin 500 mg tablet 1,000 mg PO BID 08/26/21 10/15/23 History cyclobenzaprine 10 mg tablet 10 mg PO HS muscle spasms 09/06/22 10/15/23 History gabapentin 100 mg capsule See Rx Instructions .Route .COMPLEX 09/06/22 10/15/23 History insulin glargine 100 unit/mL (3 See Rx Instructions .Route .COMPLEX 09/06/22 10/15/23 History mL) subcutaneous pen (Lantus Solostar U-100 Insulin) metoclopramide HCl 10 mg tablet 10 mg PO TID 09/06/22 10/15/23 History budesonide-formoterol HFA 80 2 puff inhalation BID 02/08/23 10/15/23 History mcg-4.5 mcg/actuation aerosol inhaler (Symbicort) tirzepatide 15 mg/0.5 mL 15 mg subcut WK 09/19/23 10/15/23 History subcutaneous pen injector (Jake) aspirin 81 mg tablet,delayed 81 mg PO QAM #30 tabs 09/22/23 10/15/23 Rx release atorvastatin 20 mg tablet 20 mg PO QAM #30 tabs 09/22/23 10/15/23 Rx hydrochlorothiazide 25 mg tablet 25 mg PO QAM #30 tabs 09/22/23 10/15/23 Rx losartan 100 mg tablet 100 mg PO DAILY #30 tabs 09/22/23 10/15/23 Rx metoprolol succinate 100 mg 100 mg PO QAM #30 tabs 09/22/23 10/15/23 Rx tablet,extended release 24 hr (Toprol XL) metoprolol succinate 50 mg 50 mg PO QPM #30 tabs 09/22/23 10/15/23 Rx tablet,extended release 24 hr spironolactone 25 mg tablet 25 mg PO QAM #30 tabs 09/22/23 10/15/23 Rx albuterol sulfate 90 mcg/actuation 3 inh inhalation Q6H PRN 10/15/23 10/15/23 History aerosol inhaler WHEEZING/SOB ibuprofen 125 mg-acetaminophen 250 3 tab PO BID 10/15/23 10/15/23 History mg tablet (Dual Action Pain Reliever) Patient History Medical History Sleep apnea Multiple pulmonary nodules determined by computed tomography of lung Arthritis Low magnesium level History of RSV infection & flu a few months ago. Tachycardia chronic high heart rate - unknown etiology - a few months ago increased dose of metoprolol. Rhinovirus dx May 23 [facility] & another illness dx - ? name of /antibiotic and inhalers for. feeling better: only symptom : sore throat. COPD (chronic obstructive pulmonary disease) ? dx of Peripheral neuropathy Diabetes mellitus, type 2 Hypertension Tobacco use Restrictive lung disease Elevated liver function tests History of DVT (deep vein thrombosis) "years ago">no known cause Tussive syncope "occurred only one time, no recent issues" Esophagitis Osteoarthritis Hx of pancreatitis resolved GERD (gastroesophageal reflux disease) Cardiac murmur A CHILD Erectile dysfunction MRSA (methicillin resistant Staphylococcus aureus) carrier over 2 yrs ago>"not sure where it was" Intellectual disability Obstructive sleep apnea cpap Obesity IBS (irritable bowel syndrome) History of ventricular tachycardia "nonsustained" Surgical History History of appendectomy 02/10/2023 History of reduction of nasal fracture 09/25/21-Dr. Garcia Status post incision and drainage LLE History of shoulder surgery right-2019 H/O foot surgery LEFT-2018 History of arthroscopy LEFT KNEE-[id number] History of esophagogastroduodenoscopy (EGD) History of colonoscopy with most recent attempt: failed prep. Told would need a 2 day prep prior to colonoscopy in Sep 2023. History of tooth extraction History of tonsillectomy and adenoidectomy 1979 Family History Brother Family history of diabetes mellitus Environmental allergies Asthma Mother Family history of diabetes mellitus Hypertension Environmental allergies Father Family history of diabetes mellitus Hypertension Heart disease Grandfather (Paternal) Lung cancer smoker Aunt Bleeding disorder Other No family history of adverse response to anesthesia Social History Smoking Status: Current every day smoker Tobacco Type: Cigarettes Age Started Using Tobacco: 14; Cigarettes Per Day: 1 pack; Second Hand Exposure: No; Do You Dip or Chew Tobacco: No; Tobacco Cessation Education Requested by Patient: No Hx Alcohol Use: Yes Alcohol type: beer Alcohol Intake Frequency: Monthly or Less Alcohol Intake Frequency Comment: seldom, a couple times per year if that per pt Hx Substance Use: No Preferred Language: Bahamian Communication Ability: Effective 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 Required: No Beliefs That Will Affect Care: None marital status: / marital status details: single at this time Current Living Situation: Significant Other Current Living Situation Comment: with Ni and dog, in home, 1 JING current occupational status: employed 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 Other Information That Helps Us Care for You: No other: girlfriend able to assist with dressing changes and care as needed Feels Safe at Home: Yes Safety Concerns: Feels Safe At This Time Diet: diabetic during the past year weight has: remained stable Assistive Devices: Glasses Review of Systems Review of Systems: All systems reviewed & are unremarkable except as noted in HPI & below Results & Data Vital Signs (Past 12 Hours) Vital Signs Temp Pulse Resp BP BP Pulse Ox O2 Del Method 10/16/23 14:11 36.4 C L 101 H 18 129/79 94 Room Air 10/16/23 07:56 Room Air 10/16/23 06:37 37 C 80 20 104/68 94 Room Air Diagnostic Findings [place], [place] [phone] CT Scan Report Patient: ROBERT BARAJAS Admit Date: 10/15/23 MR#: [id number] Address1: [facility] Acct ID:[id number] Address2: Date: 1975 [facility] Zip: [place] [address] Age: 47 Location: 3W Sex: M Room/Bed: [facility] Att Phy: Rose Lanza MD Diagnosis: LEFT ANKLE PAIN Myrna Phy: Velasquez Valencia MD Service Date: 10/16/23 Fam Phy: Interpreting Phy: Gil Zarate Phy: Hernan Busby MD Ordering Phy: Glenn Camacho DPM, MS cc: ~ CT ankle LT wo con HISTORY: 47 years-old Male AVN with talus fracture Chronic left ankle pain with avascular necrosis. COMPARISON: MRI left ankle 10/15/2023, radiographs 10/15/2023, CT October 18, 2017. TECHNIQUE: Multiple axial CT images of the left ankle were obtained without the use of IV contrast. A dose lowering technique was used consistent with the principals of ALARA. FINDINGS: Chronic ununited peripherally corticated intra-articular fracture of the mid talus is noted with fracture line extending into the mid, medial and lateral aspects of the talar dome and also into the middle and posterior facets of the talus. This demonstrates prominent subcortical cystic changes with bony fragmentation resulting in numerous intra-articular subcentimeter loose bodies. There is flattening of the articular head of the talus with moderate tibiotalar degeneration. Fused os trigonum. Moderate-sized calcaneal enthesophytes. Mild midfoot and hindfoot osteoarthritis. There is diffusely increased sclerosis of the talus. Tendons and ligaments are not well evaluated by CT technique. IMPRESSION: 1. Chronic ununited intra-articular talar fracture with prominent subcortical cystic change suggestive of pseudoarticulation. There is chronic articular flattening of the talus with numerous intra-articular subcentimeter bone fragments/loose bodies. 2. Mild midfoot and hindfoot osteoarthritis with spurring of the calcaneus. 3. Moderate tibiotalar degeneration. 4. Diffusely increased sclerosis of the talus suggestive of avascular necrosis. ACT 112: Negative or not required by law. The above report was generated using voice recognition software. It may contain grammatical, syntax or spelling errors. Dictated: 10/16/2023 11:29 AM Transcribed: 10/16/2023 12:48 PM Darnell [id number] [email or web address] Electronically signed by: Gil Hilliard M.D. 10/16/2023 1:50 PM Dictated: 10/16/23 1129 Transcribed: 10/16/23 1248
[2023-10-16] MEDS: ACETAMINOPHEN 325 MG TAB PO PRN (18:04)
[2023-10-17] MEDS: oxyCODONE HCL IR 5 MG TAB (IMMEDIATE RELEASE) PO PRN ×3 (03:28→19:40)
[2023-10-17] MEDS: ENOXAPARIN INJ 40 MG/0.4 ML SYR SQ SCH (06:19)
[2023-10-17 08:02] LABS: Hematocrit (blood only) 41.1 % (42.0-52.0); Hemoglobin 13.4 g/dl (14.0-18.0); Mean Corpuscular Hemoglobin 26.7 pg (25.0-34.0); Mean Corpuscular Hgb Conc 32.6 g/dL (32.0-36.0); Mean Platelet Volume 9.9 fL (9.4-12.4); Platelet Count 211 K/uL (130-400); RDW Coefficient of Variation 13.5 % (11.5-14.5); RDW Standard Deviation 39.8 fL (36.4-46.3); Red Blood Count 5.01 M/uL (4.70-6.10); White Blood Count 8.41 K/ul (4.8-10.8)
[2023-10-17 08:10] LABS: BUN Creatinine Ratio 31.9 (10-20); Calcium 8.8 mg/dl (8.6-10.3); Creatinine Clr Calc Pharmacy 145.9 ml/min; Est GFR (African American) 109.9 ml/min; Est GFR (Non-African American) 94.8 ml/min; Potassium 4.7 mmol/L (3.5-5.1)
[2023-10-17] MEDS: ATORVASTATIN 20 MG TAB PO SCH (08:31)
[2023-10-17] MEDS: METOCLOPRAMIDE HCL 10 MG TABLET PO SCH ×3 (08:31→17:22)
[2023-10-17] MEDS: FLUTICASONE/VILANTEROL 100/25MCG 14 PUFFS/INHALER INH SCH (08:31)
[2023-10-17] MEDS: ASPIRIN 81 MG ECTAB PO SCH (08:31)
[2023-10-17] MEDS: GABAPENTIN 100 MG CAP PO SCH ×2 (08:32→19:46)
[2023-10-17] MEDS: METOPROLOL SUCC 50MG EXT REL TAB PO SCH ×2 (08:32→19:45)
[2023-10-17] MEDS: hydroCHLOROthiazide 25 MG TAB PO SCH (08:32)
[2023-10-17] MEDS: SPIRONOLACTONE 25 MG TAB PO SCH (08:32)
[2023-10-17] MEDS: LOSARTAN POTASSIUM 50 MG TAB PO SCH (08:32)
[2023-10-17] MEDS: PANTOprazole 40 MG TAB PO SCH ×2 (08:32→19:46)
[2023-10-17] MEDS: LANTUS PER UNIT CHARGE SC SCH (08:34)
[2023-10-17] MEDS: INSULIN ASPART PER UNIT CHARGE SC SCH ×4 (08:34→21:23)
--- NOTE | 2023-10-17 18:13 | Hospitalist Progress Note ---
Date of Service October 17, 2023 Assessment & Plan (1) Charcot's joint arthropathy in type 2 diabetes mellitus: (2) Left ankle pain: (3) Osteonecrosis: (4) Acute pain of left lower extremity: (5) Sleep apnea: Plan Patient is a 47 yr male with H/O Type 2 diabetes, diabetic neuropathy, chronic respiratory failure with hypercapnia, obstructive sleep apnea, COPD, restrictive lung disease, hyperlipidemia, morbid obesity, gastroparesis, irritable bowel syndrome, GERD, history of DVT, cervical spinal stenosis, presents with left ankle pain going on for several months. Left ankle pain Osteonecrosis --Ankle MRI:Findings suggestive of osteonecrosis of the talus with chronic mid- body fracture disrupting the articular surface. Secondary osteoarthritic changes of the tibiotalar joint. Moderate joint effusion with synovitis. Subtalar joint degeneration with degenerative marrow signal in the calcaneus. Chronic injury of the calcaneofibular ligament. Chronic injury of the deltoid ligament. Short segment split tear of the peroneus brevis tendon. Edema within the flexor hallucis longus muscle suggesting muscle strain. --Left LE CT:Chronic ununited intra-articular talar fracture with prominent subcortical cystic change suggestive of pseudoarticulation. There is chronic articular flattening of the talus with numerous intra-articular subcentimeter bone fragments/loose bodies. Mild midfoot and hindfoot osteoarthritis with spurring of the calcaneus. Moderate tibiotalar degeneration. Diffusely increased sclerosis of the talus suggestive of avascular necrosis. --Venous Doppler:No DVT within the left lower extremity. -- Patient requires tibiotalocalcaneal hindfoot arthrodesis Appreciate podiatry input Plan for hindfoot surgery next week Continue to use boot with ambulation Pain control Obstructive sleep apnea on CPAP nightly Says currently his CPAP machine has been getting adjusted for settings. Currently not using CPAP History of COPD Restrictive lung disease Chronic respiratory hypercapnia Continue home inhalers Will monitor DM II HbA1c 8.8 Continue home long-acting insulin continue Insulin while hospitalized Monitor BGs Hypertension Continue hydrochlorothiazide, losartan and metoprolol succinate and spironolactone monitor BP Morbid obesity BMI 39.8 DVT Px: Lovenox SQ Code Status Full code Admission and Anticipated Discharge Date Admission Date: October 15, 2023 Subjective Patient is seen and examined at bedside States having left ankle pain Denies any chest pain, dyspnea, dizziness, nausea, vomiting, abdominal pain Discussed with podiatry Dr. Camacho today Review of Systems Review of Systems: All systems reviewed & are unremarkable except as noted in Subjective Physical Exam Physical Exam: Physical Exam: Vitals signs as noted above General Appearance:Morbidly Obese, no apparent distress Head: normocephalic, Atraumatic Eyes: normal inspection, EOMI Neck: supple, Trachea midline Respiratory/Chest: Normal breath sounds, CTA, No accessory muscle use Cardiovascular: S1, S2, No murmur Abdomen/GI:Soft, Non tender, Bowel sounds present Extremities/Musculoskeletal:normal inspection, no edema, Left Ankle tender Neurologic/Psych:AAOX3, grossly no focal neurological deficits Skin: normal color, warm Results & Data Results & Data Vital Signs (Past 12 Hours) Vital Signs Temp Pulse Resp BP Pulse Ox O2 Del Method 10/17/23 13:35 37.1 C 104 H 18 131/79 94 Room Air 10/17/23 08:35 Room Air 10/17/23 07:54 36.8 C 108 H 18 124/71 92 Room Air Laboratory Results Short CBC 10/17/23 Range/Units 07:19 WBC 8.41 (4.8-10.8) K/ul Hgb 13.4 L (14.0-18.0) g/dl Hct 41.1 L (42.0-52.0) % Plt Count 211 (130-400) K/uL BMP 10/17/23 07:19 Sodium 135 L Potassium 4.7 Chloride 102 Carbon Dioxide 26 BUN 30 H Creatinine 0.94 Glucose 169 H Calcium 8.8 (5) Sleep apnea Sleep apnea type: unspecified type Qualified Code(s): G47.30 - Sleep apnea, unspecified
[2023-10-17] MEDS: CYCLOBENZAPRINE HCL 10 MG TAB PO SCH (19:46)
[2023-10-17] MEDS: FAMOTIDINE 20 MG TAB PO SCH (19:46)
[2023-10-17] MEDS: LANTUS PER UNIT CHARGE SQ SCH (21:28)
--- NOTE | 2023-10-17 21:55 | Orthopedic Progress Note ---
Date of Service October 17, 2023 Assessment & Plan (1) Osteonecrosis: Plan: Patient seen, evaluated, and treated. I have reviewed plain films x-ray, CT, and MRI and findings. The left talus shows fracture with significant sclerosis associated with AVN. We did discuss conservative protected weight bearing and multiple surgical care options. Ultimately Patient would be best served with a tibiotalocalcaneal hindfoot arthrodesis due to severity of AVN concomitant comorbidities . We did discuss this procedure in detail. CT angiogram ordered for evaluation of blood flow prior to surgical intervention. This procedure is planned for 10/20/22 Thank you for allowing me to participate in the care of this Patient. (2) Left ankle pain: (3) Acute pain of left lower extremity: (4) Charcot's joint arthropathy in type 2 diabetes mellitus: Admission and Anticipated Discharge Date Admission Date: October 15, 2023 Subjective Patient is seen and examined in 361-1 at bedside. Patient complains of continued left ankle pain. Review of Systems Review of Systems: All systems reviewed & are unremarkable except as noted in Subjective Physical Exam Constitutional: well developed, well nourished, + obese, cooperative and comfortable Eyes: normal visual thomas by confrontation Neck: normal visual inspection Respiratory: normal respiratory effort Cardiovascular: Rate/Rhythm: regular rate and regular rhythm Musculoskeletal: Extremities: + foot abnormality (Left ankle pain and swelling) Left Skin: normal turgor Neurologic: moves all extremities (Decreased epicritic sensation) Psychiatric: Orientation: alert and oriented x 3 Results & Data Vital Signs (Past 12 Hours) Vital Signs Temp Pulse Resp BP Pulse Ox O2 Del Method 10/17/23 19:42 37.1 C 98 H 18 128/75 95 Room Air 10/17/23 13:35 37.1 C 104 H 18 131/79 94 Room Air
[2023-10-18] MEDS: ENOXAPARIN INJ 40 MG/0.4 ML SYR SQ SCH (05:21)
[2023-10-18] MEDS: FLUTICASONE/VILANTEROL 100/25MCG 14 PUFFS/INHALER INH SCH (08:30)
[2023-10-18] MEDS: ASPIRIN 81 MG ECTAB PO SCH (08:31)
[2023-10-18] MEDS: METOPROLOL SUCC 50MG EXT REL TAB PO SCH ×2 (08:31→20:07)
[2023-10-18] MEDS: LOSARTAN POTASSIUM 50 MG TAB PO SCH (08:31)
[2023-10-18] MEDS: PANTOprazole 40 MG TAB PO SCH ×2 (08:31→20:07)
[2023-10-18] MEDS: hydroCHLOROthiazide 25 MG TAB PO SCH (08:32)
[2023-10-18] MEDS: SPIRONOLACTONE 25 MG TAB PO SCH (08:32)
[2023-10-18] MEDS: METOCLOPRAMIDE HCL 10 MG TABLET PO SCH ×3 (08:33→17:21)
[2023-10-18] MEDS: GABAPENTIN 100 MG CAP PO SCH ×2 (08:33→20:07)
[2023-10-18] MEDS: ATORVASTATIN 20 MG TAB PO SCH (08:33)
[2023-10-18] MEDS: LANTUS PER UNIT CHARGE SC SCH (08:41)
[2023-10-18] MEDS: INSULIN ASPART PER UNIT CHARGE SC SCH ×4 (08:42→21:39)
[2023-10-18 08:45] LABS: Hematocrit (blood only) 41.4 % (42.0-52.0); Hemoglobin 13.9 g/dl (14.0-18.0); Mean Corpuscular Hemoglobin 26.9 pg (25.0-34.0); Mean Corpuscular Hgb Conc 33.6 g/dL (32.0-36.0); Mean Corpuscular Volume 80.1 fL (80.0-100.0); Mean Platelet Volume 9.6 fL (9.4-12.4); Platelet Count 232 K/uL (130-400); RDW Coefficient of Variation 13.5 % (11.5-14.5); RDW Standard Deviation 39.1 fL (36.4-46.3); Red Blood Count 5.17 M/uL (4.70-6.10)
[2023-10-18 08:58] LABS: BUN Creatinine Ratio 27.7 (10-20); Calcium 9.1 mg/dl (8.6-10.3); Creatinine Clr Calc Pharmacy 135.8 ml/min; Est GFR (African American) 100.8 ml/min; Est GFR (Non-African American) 86.9 ml/min; Magnesium 1.9 mg/dl (1.7-2.4); Potassium 4.6 mmol/L (3.5-5.1)
[2023-10-18] MEDS: oxyCODONE HCL IR 5 MG TAB (IMMEDIATE RELEASE) PO PRN ×2 (11:17→19:36)
--- NOTE | 2023-10-18 17:40 | Hospitalist Progress Note ---
Date of Service October 18, 2023 Assessment & Plan (1) Charcot's joint arthropathy in type 2 diabetes mellitus: (2) Left ankle pain: (3) Osteonecrosis: (4) Acute pain of left lower extremity: (5) Sleep apnea: Plan Patient is a 47 yr male with H/O Type 2 diabetes, diabetic neuropathy, chronic respiratory failure with hypercapnia, obstructive sleep apnea, COPD, restrictive lung disease, hyperlipidemia, morbid obesity, gastroparesis, irritable bowel syndrome, GERD, history of DVT, cervical spinal stenosis, presents with left ankle pain going on for several months. Left ankle pain Osteonecrosis --Ankle MRI:Findings suggestive of osteonecrosis of the talus with chronic mid- body fracture disrupting the articular surface. Secondary osteoarthritic changes of the tibiotalar joint. Moderate joint effusion with synovitis. Subtalar joint degeneration with degenerative marrow signal in the calcaneus. Chronic injury of the calcaneofibular ligament. Chronic injury of the deltoid ligament. Short segment split tear of the peroneus brevis tendon. Edema within t he flexor hallucis longus muscle suggesting muscle strain. --Left LE CT:Chronic ununited intra-articular talar fracture with prominent subcortical cystic change suggestive of pseudoarticulation. There is chronic articular flattening of the talus with numerous intra-articular subcentimeter bone fragments/loose bodies. Mild midfoot and hindfoot osteoarthritis with spurring of the calcaneus. Moderate tibiotalar degeneration. Diffusely increased sclerosis of the talus suggestive of avascular necrosis. --Venous Doppler:No DVT within the left lower extremity. -- Patient requires tibiotalocalcaneal hindfoot arthrodesis Appreciate podiatry input Continue to use boot with ambulation Pain control Plan for hindfoot surgery on Wednesday Obstructive sleep apnea on CPAP nightly Says currently his CPAP machine has been getting adjusted for settings. Currently not using CPAP History of COPD Restrictive lung disease Chronic respiratory hypercapnia Continue home inhalers Will monitor DM II HbA1c 8.8 Continue home long-acting insulin continue Insulin while hospitalized Monitor BGs Hypertension Continue hydrochlorothiazide, losartan and metoprolol succinate and spironolactone monitor BP Morbid obesity BMI 39.8 DVT Px: Lovenox SQ Code Status Full code Admission and Anticipated Discharge Date Admission Date: October 15, 2023 Subjective Patient is seen and examined at bedside Reports persistent left ankle pain No distress on exam Denies any chest pain, dyspnea, dizziness, nausea, vomiting, abdominal pain Review of Systems Review of Systems: All systems reviewed & are unremarkable except as noted in Subjective Physical Exam Physical Exam: Physical Exam: Vitals signs as noted above General Appearance:Morbidly Obese, no apparent distress Head: normocephalic, Atraumatic Eyes: normal inspection, EOMI Neck: supple, Trachea midline Respiratory/Chest: Normal breath sounds, CTA, No accessory muscle use Cardiovascular: S1, S2, No murmur Abdomen/GI:Soft, Non tender, Bowel sounds present Extremities/Musculoskeletal:normal inspection, no edema, Left Ankle tender Neurologic/Psych:AAOX3, grossly no focal neurological deficits Skin: normal color, warm Results & Data Results & Data Vital Signs (Past 12 Hours) Vital Signs Temp Pulse Resp BP Pulse Ox O2 Del Method 10/18/23 17:13 36.7 C 101 H 18 146/81 H 94 Room Air 10/18/23 07:43 36.9 C 100 H 18 134/77 90 Room Air Laboratory Results Short CBC 10/18/23 Range/Units 08:15 WBC 10.20 (4.8-10.8) K/ul Hgb 13.9 L (14.0-18.0) g/dl Hct 41.4 L (42.0-52.0) % Plt Count 232 (130-400) K/uL BMP 10/18/23 08:15 Sodium 134 L Potassium 4.6 Chloride 100 Carbon Dioxide 26 BUN 28 H Creatinine 1.01 Glucose 186 H Calcium 9.1 (5) Sleep apnea Sleep apnea type: unspecified type Qualified Code(s): G47.30 - Sleep apnea, unspecified
[2023-10-18] MEDS: FAMOTIDINE 20 MG TAB PO SCH (20:07)
[2023-10-18] MEDS: CYCLOBENZAPRINE HCL 10 MG TAB PO SCH (20:07)
--- NOTE | 2023-10-18 20:36 | Orthopedic Progress Note ---
Date of Service October 18, 2023 Assessment & Plan (1) Osteonecrosis: Plan: Patient seen, evaluated, and treated. I have reviewed plain films x-ray, CT, and MRI and findings. The left talus shows chronic fracture with significant sclerosis associated with AVN. We reviewed conservative protected weight bearing and multiple surgical care options. We reviewed tibiotalocalcaneal hindfoot arthrodesis due to severity of AVN and concomitant comorbidities . We discussed this procedure in detail. CT angiogram ordered for evaluation of blood flow prior to surgical intervention. Awaiting imaging and findings. This procedure is planned for 10/20/22 Thank you for allowing me to participate in the care of this Patient. (2) Left ankle pain: (3) Acute pain of left lower extremity: (4) Charcot's joint arthropathy in type 2 diabetes mellitus: Admission and Anticipated Discharge Date Admission Date: October 15, 2023 Subjective Patient is seen and examined at bedside in room W361-1. Patient resting comfortably. Reports persistent left ankle pain. No distress on exam. Physical Exam Constitutional: well developed, well nourished, + obese, cooperative and comfortable Eyes: normal visual thomas by confrontation Neck: normal visual inspection Respiratory: normal respiratory effort Cardiovascular: Rate/Rhythm: regular rate and regular rhythm Musculoskeletal: Extremities: + foot abnormality (Left ankle pain and swelling) Skin: normal turgor Neurologic: moves all extremities (Decreased epicritic sensation) Psychiatric: Orientation: alert and oriented x 3 Results & Data Vital Signs (Past 12 Hours) Vital Signs Temp Pulse Resp BP Pulse Ox O2 Del Method 10/18/23 20:03 36.9 C 96 H 20 138/80 95 Room Air 10/18/23 17:13 36.7 C 101 H 18 146/81 H 94 Room Air
[2023-10-18] MEDS: LANTUS PER UNIT CHARGE SQ SCH (21:39)
[2023-10-19] MEDS: ENOXAPARIN INJ 40 MG/0.4 ML SYR SQ SCH (05:38)
[2023-10-19] MEDS: METOCLOPRAMIDE HCL 10 MG TABLET PO SCH ×3 (08:59→17:39)
[2023-10-19] MEDS: hydroCHLOROthiazide 25 MG TAB PO SCH (08:59)
[2023-10-19] MEDS: ASPIRIN 81 MG ECTAB PO SCH (08:59)
[2023-10-19] MEDS: METOPROLOL SUCC 50MG EXT REL TAB PO SCH ×2 (08:59→20:11)
[2023-10-19] MEDS: PANTOprazole 40 MG TAB PO SCH ×2 (08:59→20:11)
[2023-10-19] MEDS: LOSARTAN POTASSIUM 50 MG TAB PO SCH (08:59)
[2023-10-19] MEDS: DICYCLOMINE HCL 10 MG CAP PO PRN (09:00)
[2023-10-19] MEDS: FLUTICASONE/VILANTEROL 100/25MCG 14 PUFFS/INHALER INH SCH (09:00)
[2023-10-19] MEDS: SPIRONOLACTONE 25 MG TAB PO SCH (09:00)
[2023-10-19] MEDS: GABAPENTIN 100 MG CAP PO SCH ×2 (09:00→20:12)
[2023-10-19] MEDS: ATORVASTATIN 20 MG TAB PO SCH (09:00)
[2023-10-19] MEDS: INSULIN ASPART PER UNIT CHARGE SC SCH ×4 (09:05→20:57)
[2023-10-19] MEDS: LANTUS PER UNIT CHARGE SC SCH (09:06)
[2023-10-19] MEDS ORDERED: OPTIRAY 320 125ml IV ONE (09:34)
[2023-10-19 09:50] LABS: BUN Creatinine Ratio 31.7 (10-20); Calcium 9.2 mg/dl (8.6-10.3); Creatinine Clr Calc Pharmacy 135.8 ml/min; Est GFR (African American) 100.8 ml/min; Est GFR (Non-African American) 86.9 ml/min; Potassium 5.1 mmol/L (3.5-5.1)
--- NOTE | 2023-10-19 11:12 | CT Scan Report ---
CT ANGIOGRAM OF THE LEFT FOOT COMBO CLINICAL HISTORY: Preoperative examination. Talar fracture. COMPARISON STUDY: CT scan of the left ankle dated 10/16/2023. TECHNIQUE: Before and following the IV administration of 119 mL of Optiray 320, CT angiogram of the l eft foot is performed from the ankle to the base of the foot. Images are reviewed in the axial, sagit stefano, and coronal planes. IV contrast was administered without complication. MIPS images were assessed . A dose lowering technique was utilized adhering to the principles of ALARA. CT DOSE: 845.57 mGy.cm FINDINGS: The skeletal structures are well-mineralized. Again seen is diffuse sclerosis of the talus with a chronic nonunited and peripherally corticated intra-articular fracture of the mid talus. Fract ure involves the talar dome as well as the middle and posterior facets. There is associated subcortic al cystic change and bony fragmentation, with numerous tiny intra-articular foreign bodies. There is flattening of the talus with degenerative change at the tibiotalar articulation. A joint effusion is noted. No additional fracture is seen. There are large dorsal and small plantar heel spurs. A fused o s trigonum is incidentally noted. The Achilles tendon is intact as visualized. The anterior tibial, p osterior tibial, and peroneal arteries are widely patent. The dorsalis pedis artery is widely patent. No peripherally-enhancing fluid collection is seen on the angiogram phase images. IMPRESSION: 1. Normal CT angiogram of the left foot. The regional arteries are widely patent. 2. There is unchanged appearance of a chronic nonunited intra-articular talar fracture as compared to the recent CT scan of the ankle. 3. Ankle joint effusion with numerous small radiodense foreign bodies. 4. Flattening of the talar dome with osteoarthritic change at the tibiotalar articulation. ACT 112: Negative or not required by law. Dictated: 10/19/2023 10:29 AM Transcribed: 10/19/2023 10:55 AM Darnell [id number] [email or web address] Electronically signed by: Jaydon Wallace M.D. 10/19/2023 11:09 AM
[2023-10-19] MEDS: DOCUSATE SODIUM/SENNA 50/8.6MG TAB PO SCH (12:02)
[2023-10-19] MEDS: ACETAMINOPHEN 325 MG TAB PO PRN (12:05)
--- NOTE | 2023-10-19 15:35 | Hospitalist Progress Note ---
Date of Service October 19, 2023 Assessment & Plan (1) Charcot's joint arthropathy in type 2 diabetes mellitus: (2) Left ankle pain: (3) Osteonecrosis: (4) Acute pain of left lower extremity: (5) Sleep apnea: Plan Patient is a 47 yr male with H/O Type 2 diabetes, diabetic neuropathy, chronic respiratory failure with hypercapnia, obstructive sleep apnea, COPD, restrictive lung disease, hyperlipidemia, morbid obesity, gastroparesis, irritable bowel syndrome, GERD, history of DVT, cervical spinal stenosis, presents with left ankle pain going on for several months. Left ankle pain Osteonecrosis --Ankle MRI:Findings suggestive of osteonecrosis of the talus with chronic mid- body fracture disrupting the articular surface. Secondary osteoarthritic changes of the tibiotalar joint. Moderate joint effusion with synovitis. Subtalar joint degeneration with degenerative marrow signal in the calcaneus. Chronic injury of the calcaneofibular ligament. Chronic injury of the deltoid ligament. Short segment split tear of the peroneus brevis tendon. Edema within t he flexor hallucis longus muscle suggesting muscle strain. --Left LE CT:Chronic ununited intra-articular talar fracture with prominent subcortical cystic change suggestive of pseudoarticulation. There is chronic articular flattening of the talus with numerous intra-articular subcentimeter bone fragments/loose bodies. Mild midfoot and hindfoot osteoarthritis with spurring of the calcaneus. Moderate tibiotalar degeneration. Diffusely increased sclerosis of the talus suggestive of avascular necrosis. --Venous Doppler:No DVT within the left lower extremity. --LLE CTA: Normal CT angiogram of the left foot. The regional arteries are widely patent.2. There is unchanged appearance of a chronic nonunited intra- articular talar fracture as compared to the recent CT scan of the ankle.3. Ankle joint effusion with numerous small radiodense foreign bodies.4. Flattening of the talar dome with osteoarthritic change at the tibiotalar articulation. -- Patient requires tibiotalocalcaneal hindfoot arthrodesis Appreciate podiatry input Continue to use boot with ambulation Pain control Plan for hindfoot surgery on Wednesday NPO after midnight, lovenox on hold add stool softeners for bowel prophylaxis Obstructive sleep apnea on CPAP nightly Says currently his CPAP machine has been getting adjusted for settings. Currently not using CPAP History of COPD Restrictive lung disease Chronic respiratory hypercapnia Continue home inhalers Will monitor DM II HbA1c 8.8, 10/16/23 Continue home long-acting insulin continue Insulin while hospitalized Monitor BGs Hypertension Continue hydrochlorothiazide, losartan and metoprolol succinate and spironolactone monitor BP Morbid obesity BMI 39.8 DVT Px: Lovenox SQ - on hold for upcoming procedure Code Status Full code Pt was seen and examined in collaboration with Dr. Richard, please see addendum A total of 45 was spent coordinating, documenting, and providing care for this patient excluding time spent in the performance of separately billed services. This included personally viewing all current laboratories and imaging studies, medication reconciliation, outpatient chart review, and discussion with specialists. cbc, bmp, mag ordered for a.m. Admission and Anticipated Discharge Date Admission Date: October 15, 2023 Supervising Physician Co-Signing Physician Notes Patient is seen and examined at bedside. Continues to have left foot pain. No other complaints. Physical Exam: Vitals signs as noted above General Appearance:Morbidly Obese, no apparent distress Head: normocephalic, Atraumatic Eyes: normal inspection, EOMI Neck: supple, Trachea midline Respiratory/Chest: Normal breath sounds, CTA, No accessory muscle use Cardiovascular: S1, S2, No murmur Abdomen/GI:Soft, Non tender, Bowel sounds present Extremities/Musculoskeletal:normal inspection, no edema, Left Ankle tender Neurologic/Psych:AAOX3, grossly no focal neurological deficits Skin: normal color, warm Left ankle pain Osteonecrosis Plan for hindfoot surgery tomorrow N.p.o. after midnight Podiatry following I personally reviewed the record. Patient is interviewed and examined at bedside. Patient's care is coordinated with Hannah Silver PA-C. Please refer to the documentation above for details of patient's presentation and for discussion of other issues. Subjective Patient was seen and examined in 361. Follow-up Charcot arthropathy. Currently he is complaining of pain to his left foot. He states he has not had a bowel movement since admission. He is passing gas. Overall good appetite. Denies fever, chills, sweats, lightheadedness, dizziness, chest pain, shortness with, nausea, vomit, abdominal pain. Review of Systems Review of Systems: All systems reviewed & are unremarkable except as noted in HPI & below Physical Exam Physical Exam: Gen: WD/WN, NAD, A&O x3 HEENT: Normocephalic, atraumatic, conjunctivae moist, sclerae anicteric, mucous membranes moist. Lung: Clear to Auscultation bilaterally, no wheezes/rales/rhonchi Heart: Regular rate, regular rhythm, no murmurs, rubs, or gallops Abdomen: Obese abdomen, soft, NT, ND +BS x 4 Extremities: No edema Skin: Warm, no rash, negative turgor. Results & Data Results & Data Vital Signs (Past 12 Hours) Vital Signs Temp Pulse Resp BP Pulse Ox O2 Del Method 10/19/23 14:24 36.7 C 92 H 16 130/75 91 Room Air 10/19/23 07:16 36.8 C 98 H 16 131/57 L 94 Room Air Laboratory Results BMP 10/19/23 09:12 Sodium 132 L Potassium 5.1 Chloride 100 Carbon Dioxide 24 BUN 32 H Creatinine 1.01 Glucose 241 H Calcium 9.2 I have independently reviewed and interpreted patient's admitting labs and imaging studies including bmp and CTA lower ext. Diagnostic Findings Lower Extremity CTA 10/19/23 08:00 CT ANGIOGRAM OF THE LEFT FOOT COMBO CLINICAL HISTORY: Preoperative examination. Talar fracture. COMPARISON STUDY: CT scan of the left ankle dated 10/16/2023. TECHNIQUE: Before and following the IV administration of 119 mL of Optiray 320, CT angiogram of the left foot is performed from the ankle to the base of the foot. Images are reviewed in the axial, sagittal, and coronal planes. IV contrast was administered without complication. MIPS images were assessed. A dose lowering technique was utilized adhering to the principles of ALARA. CT DOSE: 845.57 mGy.cm FINDINGS: The skeletal structures are well-mineralized. Again seen is diffuse sclerosis of the talus with a chronic nonunited and peripherally corticated intra-articular fracture of the mid talus. Fracture involves the talar dome as well as the middle and posterior facets. There is associated subcortical cystic change and bony fragmentation, with numerous tiny intra-articular foreign bodies. There is flattening of the talus with degenerative change at the tibiotalar articulation. A joint effusion is noted. No additional fracture is seen. There are large dorsal and small plantar heel spurs. A fused os trigonum is incidentally noted. The Achilles tendon is intact as visualized. The anterior tibial, posterior tibial, and peroneal arteries are widely patent. The dorsalis pedis artery is widely patent. No peripherally-enhancing fluid collection is seen on the angiogram phase images. IMPRESSION: 1. Normal CT angiogram of the left foot. The regional arteries are widely patent. 2. There is unchanged appearance of a chronic nonunited intra-articular talar fracture as compared to the recent CT scan of the ankle. 3. Ankle joint effusion with numerous small radiodense foreign bodies. 4. Flattening of the talar dome with osteoarthritic change at the tibiotalar articulation. ACT 112: Negative or not required by law. Dictated: 10/19/2023 10:29 AM Transcribed: 10/19/2023 10:55 AM Darnell [id number] [email or web address] Electronically signed by: Jaydon Wallace M.D. 10/19/2023 11:09 AM Medications Administered Current Inpatient Medications Acetaminophen (Acetaminophen 325 Mg Tab) 650 mg PO Q4H PRN PRN Reason: pain/fever Stop: 11/14/23 23:53 Last Admin: 10/19/23 12:05 Dose: 650 mg Albuterol (Albuterol Hfa 8 Gm Inhaler) 3 puffs INH Q6H PRN PRN Reason: WHEEZING/SOB Stop: 11/14/23 23:53 Aspirin (Aspirin 81 Mg Ectab) 81 mg PO QAM [facility] Stop: 11/15/23 08:59 Last Admin: 10/19/23 08:59 Dose: 81 mg Atorvastatin Calcium (Atorvastatin 20 Mg Tab) 20 mg PO QAM [facility] Stop: 11/15/23 08:59 Last Admin: 10/19/23 09:00 Dose: 20 mg Cyclobenzaprine HCl (Cyclobenzaprine Hcl 10 Mg Tab) 10 mg PO HS [facility] Stop: 11/15/23 20:59 Last Admin: 10/18/23 20:07 Dose: 10 mg Dextrose (Dextrose 50% 50 Ml Syringe) 25 - 50 ml IV UD PRN; Protocol PRN Reason: Hypoglycemia Protocol Stop: 11/14/23 23:53 Dicyclomine HCl (Dicyclomine Hcl 10 Mg Cap) 10 mg PO QID PRN PRN Reason: Diarrhea Stop: 11/14/23 23:53 Last Admin: 10/19/23 09:00 Dose: 10 mg Docusate Sodium (Docusate Sodium 100 Mg Cap) 100 mg PO BID PRN PRN Reason: Constipation Stop: 11/14/23 23:53 Enoxaparin Sodium (Enoxaparin Inj 40 Mg/0.4 Ml Syr) 40 mg SQ Q24H [facility] Stop: 11/15/23 05:59 Last Admin: 10/19/23 05:38 Dose: 40 mg Famotidine (Famotidine 20 Mg Tab) 20 mg PO [facility] Stop: 11/15/23 20:59 Last Admin: 10/18/23 20:07 Dose: 20 mg Fluticasone/Vilanterol (Fluticasone/Vilanterol 100/25mcg 14 Puffs/Inhaler) 1 puffs INH DAILY [facility] Stop: 11/15/23 08:59 Last Admin: 10/19/23 09:00 Dose: 1 puffs Gabapentin (Gabapentin 100 Mg Cap) [facility] [place]: 11/15/23 08:59 Last Admin: 10/19/23 09:00 Dose: 100 mg Gabapentin (Gabapentin 100 Mg Cap) 200 mg PO [facility] Stop: 11/15/23 20:59 Last Admin: 10/18/23 20:07 Dose: 200 mg Glucagon (Glucagon For Inj 1 Mg Vial) 1 mg SQ UD PRN; Protocol PRN Reason: Hypoglycemia Protocol Stop: 11/14/23 23:53 Glucose (Glucose 10 Tab/Tube) 4 - 8 tab PO UD PRN; Protocol PRN Reason: Hypoglycemia Treatment Stop: 11/14/23 23:53 Glucose (Glucose 40% Gel 15 Gm Tube) 15 - 30 gm PO UD PRN; Protocol PRN Reason: Hypoglycemia Protocol Stop: 11/14/23 23:53 Hydrochlorothiazide (Hydrochlorothiazide 25 Mg Tab) [facility] [place]: 11/15/23 08:59 Last Admin: 10/19/23 08:59 Dose: 25 mg Insulin Aspart (Insulin Aspart Per Unit Charge) 0 units SC [facility] Stop: 11/15/23 00:14 Last Admin: 10/19/23 12:06 Dose: 9 units Insulin Glargine (Lantus Per Unit Charge) 30 units SC [facility] Stop: 11/15/23 08:59 Last Admin: 10/19/23 09:06 Dose: 30 units Insulin Glargine (Lantus Per Unit Charge) 40 units SQ HS [facility] Stop: 11/15/23 00:14 Last Admin: 10/18/23 21:39 Dose: 40 units Losartan Potassium (Losartan Potassium 50 Mg Tab) 100 mg PO DAILY [facility] Stop: 11/15/23 08:59 Last Admin: 10/19/23 08:59 Dose: 100 mg Metoclopramide HCl (Metoclopramide Hcl 10 Mg Tablet) 10 mg PO AC [facility] Stop: 11/15/23 07:29 Last Admin: 10/19/23 12:00 Dose: 10 mg Metoprolol Succinate (Metoprolol Succ 50mg Ext Rel Tab) 100 mg PO QAM [facility] Stop: 11/15/23 08:59 Last Admin: 10/19/23 08:59 Dose: 100 mg Metoprolol Succinate (Metoprolol Succ 50mg Ext Rel Tab) 50 mg PO QPM [facility] Stop: 11/15/23 20:59 Last Admin: 10/18/23 20:07 Dose: 50 mg Miscellaneous (Carbohydrates For Hypoglycemia ) 15 - 30 gm PO UD PRN PRN Reason: Hypoglycemia Protocol Stop: 11/14/23 23:53 Oxycodone HCl (Oxycodone Hcl Ir 5 Mg Tab (Immediate Release)) 5 mg PO Q6H PRN PRN Reason: Mod-Sev Pain (Scale 4-10) Stop: 10/29/23 23:53 Last Admin: 10/18/23 19:36 Dose: 5 mg Pantoprazole Sodium (Pantoprazole 40 Mg Tab) 40 mg PO BID [facility] Stop: 11/15/23 08:59 Last Admin: 10/19/23 08:59 Dose: 40 mg Polyethylene Glycol (Polyethylene (Miralax) 17 Gm Pack) 17 gm PO DAILY PRN PRN Reason: Constipation Stop: 11/14/23 23:53 Senna/Docusate Sodium (Docusate Sodium/Senna 50/8.6mg Tab) 1 tab PO QAM [facility] Stop: 11/18/23 10:14 Last Admin: 10/19/23 12:02 Dose: 1 tab Spironolactone (Spironolactone 25 Mg Tab) 25 mg PO QAM [facility] Stop: 11/15/23 08:59 Last Admin: 10/19/23 09:00 Dose: 25 mg (5) Sleep apnea Sleep apnea type: unspecified type Qualified Code(s): G47.30 - Sleep apnea, unspecified
[2023-10-19] MEDS: FAMOTIDINE 20 MG TAB PO SCH (20:11)
[2023-10-19] MEDS: CYCLOBENZAPRINE HCL 10 MG TAB PO SCH (20:11)
[2023-10-19] MEDS: LANTUS PER UNIT CHARGE SQ SCH (20:58)
[2023-10-19] MEDS: oxyCODONE HCL IR 5 MG TAB (IMMEDIATE RELEASE) PO PRN (22:12)
[2023-10-20] MEDS ORDERED: Nursing to Pharmacy Communication SCH ×2 (06:15→13:45)
[2023-10-20] MEDS: INSULIN ASPART PER UNIT CHARGE SC SCH ×4 (06:28→20:46)
[2023-10-20] MEDS ORDERED: ROPIVACAINE 0.5% 5 MG/ML 30 ML VIAL ONE (06:49)
[2023-10-20 07:22] LABS: Hematocrit (blood only) 41.1 % (42.0-52.0); Hemoglobin 13.6 g/dl (14.0-18.0); Mean Corpuscular Hemoglobin 26.9 pg (25.0-34.0); Mean Corpuscular Hgb Conc 33.1 g/dL (32.0-36.0); Mean Corpuscular Volume 81.4 fL (80.0-100.0); Mean Platelet Volume 9.6 fL (9.4-12.4); Platelet Count 221 K/uL (130-400); RDW Coefficient of Variation 13.4 % (11.5-14.5); RDW Standard Deviation 38.9 fL (36.4-46.3); Red Blood Count 5.05 M/uL (4.70-6.10); White Blood Count 9.36 K/ul (4.8-10.8)
[2023-10-20 07:41] LABS: BUN Creatinine Ratio 28.8 (10-20); Calcium 9.2 mg/dl (8.6-10.3); Creatinine Clr Calc Pharmacy 131.9 ml/min; Est GFR (African American) 97.3 ml/min; Est GFR (Non-African American) 83.9 ml/min; Magnesium 1.9 mg/dl (1.7-2.4); Potassium 4.5 mmol/L (3.5-5.1)
[2023-10-20] MEDS ORDERED: LIDOCAINE 2% 2 ML VIAL/AMP(20MG/ML) INFIL ONE ×2 (09:28→09:29)
[2023-10-20] MEDS ORDERED: ONDANSETRON INJ 2 MG/ML 2 ML VIAL ONE ×2 (09:28→14:12)
[2023-10-20] MEDS ORDERED: MIDAZOLAM HCL 1 MG/ML 2ML VIAL ONE ×3 (09:28→15:37)
[2023-10-20] MEDS ORDERED: fentaNYL citrate PF 100 MCG/2 ML VIAL ONE ×2 (09:28→16:58)
[2023-10-20] MEDS ORDERED: PROPOFOL IV EMULSION 10 MG/ML 20 ML VIAL IV ONE ×4 (09:28→16:58)
[2023-10-20] MEDS ORDERED: DEXAMETHASONE SOD INJ 4 MG/ML VIAL ONE (09:28)
[2023-10-20] MEDS ORDERED: ROCURONIUM BROMIDE 10 MG/ML 5 ML VIAL IV ONE ×5 (09:29)
[2023-10-20] MEDS: FLUTICASONE/VILANTEROL 100/25MCG 14 PUFFS/INHALER INH SCH (09:47)
[2023-10-20] MEDS: PANTOprazole 40 MG TAB PO SCH ×2 (09:47→20:13)
[2023-10-20] MEDS: hydroCHLOROthiazide 25 MG TAB PO SCH (09:48)
[2023-10-20] MEDS: LOSARTAN POTASSIUM 50 MG TAB PO SCH (09:48)
[2023-10-20] MEDS: METOPROLOL SUCC 50MG EXT REL TAB PO SCH ×2 (09:48→20:12)
[2023-10-20] MEDS: SPIRONOLACTONE 25 MG TAB PO SCH (09:49)
[2023-10-20] MEDS: ATORVASTATIN 20 MG TAB PO SCH (09:49)
[2023-10-20] MEDS: ASPIRIN 81 MG ECTAB PO SCH (09:49)
[2023-10-20] MEDS: METOCLOPRAMIDE HCL 10 MG TABLET PO SCH ×3 (09:50→18:42)
[2023-10-20] MEDS: GABAPENTIN 100 MG CAP PO SCH ×2 (09:50→20:10)
[2023-10-20] MEDS: DOCUSATE SODIUM/SENNA 50/8.6MG TAB PO SCH (09:50)
[2023-10-20] MEDS: ACETAMINOPHEN 325 MG TAB PO PRN (09:52)
[2023-10-20] MEDS: LANTUS PER UNIT CHARGE SC SCH (10:10)
--- NOTE | 2023-10-20 12:44 | Hospitalist Progress Note ---
Date of Service October 20, 2023 Assessment & Plan (1) Charcot's joint arthropathy in type 2 diabetes mellitus: (2) Left ankle pain: (3) Osteonecrosis: (4) Acute pain of left lower extremity: (5) Sleep apnea: Plan Patient is a 47 yr male with H/O Type 2 diabetes, diabetic neuropathy, chronic respiratory failure with hypercapnia, obstructive sleep apnea, COPD, restrictive lung disease, hyperlipidemia, morbid obesity, gastroparesis, irritable bowel syndrome, GERD, history of DVT, cervical spinal stenosis, presents with left ankle pain going on for several months. Left ankle pain Osteonecrosis --Ankle MRI:Findings suggestive of osteonecrosis of the talus with chronic mid- body fracture disrupting the articular surface. Secondary osteoarthritic changes of the tibiotalar joint. Moderate joint effusion with synovitis. Subtalar joint degeneration with degenerative marrow signal in the calcaneus. Chronic injury of the calcaneofibular ligament. Chronic injury of the deltoid ligament. Short segment split tear of the peroneus brevis tendon. Edema within t he flexor hallucis longus muscle suggesting muscle strain. --Left LE CT:Chronic ununited intra-articular talar fracture with prominent subcortical cystic change suggestive of pseudoarticulation. There is chronic articular flattening of the talus with numerous intra-articular subcentimeter bone fragments/loose bodies. Mild midfoot and hindfoot osteoarthritis with spurring of the calcaneus. Moderate tibiotalar degeneration. Diffusely increased sclerosis of the talus suggestive of avascular necrosis. --Venous Doppler:No DVT within the left lower extremity. --LLE CTA: Normal CT angiogram of the left foot. The regional arteries are widely patent.2. There is unchanged appearance of a chronic nonunited intra- articular talar fracture as compared to the recent CT scan of the ankle.3. Ankle joint effusion with numerous small radiodense foreign bodies.4. Flattening of the talar dome with osteoarthritic change at the tibiotalar articulation. -- Patient requires tibiotalocalcaneal hindfoot arthrodesis Appreciate podiatry input Continue to use boot with ambulation Pain control Plan for hindfoot surgery today NPO after midnight, lovenox on hold Senna S added 10/19, will also add miralax q6 post op for bowel prophylaxis Obstructive sleep apnea on CPAP nightly Says currently his CPAP machine has been getting adjusted for settings. Currently not using CPAP History of COPD Restrictive lung disease Chronic respiratory hypercapnia Continue home inhalers Will monitor DM II HbA1c 8.8, 10/16/23 Continue home long-acting insulin continue Insulin while hospitalized Monitor BGs, stable Hypertension Continue hydrochlorothiazide, losartan and metoprolol succinate and spironolactone monitor BP Morbid obesity BMI 39.8 DVT Px: Lovenox SQ - on hold for upcoming procedure Code Status Full code Pt was seen and examined in collaboration with Dr. Alamo, please see addendum A total of 42 was spent coordinating, documenting, and providing care for this patient excluding time spent in the performance of separately billed services. This included personally viewing all current laboratories and imaging studies, medication reconciliation, outpatient chart review, and discussion with specialists. cbc, bmp ordered for a.m. Admission and Anticipated Discharge Date Admission Date: October 15, 2023 Supervising Physician Co-Signing Physician Notes I have seen and discussed the case with the collaborating JAMIE. I agree with the above H&P. I have reviewed and confirmed the patients medical history, the findings on physical examination, and the patients diagnosis and treatment plan with Nadeem AYALA and agree with the information documented. In short, Mr Akhtar is a 47 year old gentleman who is undergoing left foot surgery today given severity of osteonecrosis. Patient declinced any acute concerns this morning. Physical exam unremarkable at bedside. Plan for OR with Dr. Camacho. Rest of plan as above. Subjective Patient was seen and examined in 361. Follow-up Charcot arthropathy. He has left foot pain. Anticipating surgery today. Still no BM yet. Denies f/c/s, chest pain, sob, n/v/d. He is NPO. Review of Systems Review of Systems: All systems reviewed & are unremarkable except as noted in HPI & below Physical Exam Physical Exam: Gen: WD/WN, NAD, A&O x3 HEENT: Normocephalic, atraumatic, conjunctivae moist, sclerae anicteric, mucous membranes moist. Lung: Clear to Auscultation bilaterally, no wheezes/rales/rhonchi Heart: Regular rate, regular rhythm, no murmurs, rubs, or gallops Abdomen: Obese abdomen, soft, NT, ND +BS x 4 Extremities: No edema Skin: Warm, no rash, negative turgor. Results & Data Results & Data Vital Signs (Past 12 Hours) Vital Signs Temp Pulse Resp BP Pulse Ox O2 Del Method 10/20/23 08:10 Room Air 10/20/23 07:09 36.8 C 94 H 15 145/78 H 95 Room Air (5) Sleep apnea Sleep apnea type: unspecified type Qualified Code(s): G47.30 - Sleep apnea, unspecified
[2023-10-20] MEDS: LACTATED RINGER'S 1,000 ML IV SCH (12:58)
--- NOTE | 2023-10-20 13:09 | Anesthesiology Consultation ---
Date of Service October 20, 2023 Assessment & Plan Chart Review Chart Review: Acceptable Risk for Surgery and Patient NOT seen in Pre Admission Testing Consults Requested none ASA ASA4 Proposed Anesthesia Anesthesia Type: General Regional Regional Laterality: Left Site: Popliteal Risk / Benefits Reviewed With: PT / POA / Parent / Guardian, Accepts Plan and Informed Consent Obtained History Surgery Operation Date: 10/20/23 13:30 Proposed Procedures p Left Ankle Tibiotalocalcaneal Arthrodesis - Glenn Camacho, [place], [place] Height/Weight Height: 6 ft 3 in Weight: 144.6 kg Allergies Allergy/AdvReac Type Severity Reaction Status Date / Time cefaclor [From Ceclor] Allergy Unknown childhood Verified 10/15/23 19:03 allergy ? Cephalosporins Allergy Unknown Unknown Verified 10/15/23 19:03 empagliflozin AdvReac Unknown put me Verified 10/15/23 19:03 [From Jardiance] into ketoacidosis? NSAIDS (Non-Steroidal AdvReac Unknown use with Verified 10/15/23 19:03 Anti-Inflamma caution : hx esophagus damage Medications Home Medications Medication Instructions Recorded Confirmed Last Taken insulin aspart U-100 100 unit/mL 18 unit subcut TID 06/09/19 10/15/23 10/15/23 (3 mL) subcutaneous pen (Novolog FlexPen U-100 Insulin aspart) dicyclomine 10 mg capsule 10 mg PO QID PRN Diarrhea 05/01/20 10/15/23 04/14/23 famotidine 20 mg tablet 20 mg PO HS 07/13/20 10/15/23 10/14/23 docusate sodium 100 mg capsule 100 mg PO BID PRN Constipation 02/25/21 10/15/23 04/14/23 (Col-Rite) pantoprazole 40 mg tablet,delayed 40 mg PO BID 02/25/21 10/15/23 10/15/23 release metformin 500 mg tablet 1,000 mg PO BID 08/26/21 10/15/23 10/15/23 cyclobenzaprine 10 mg tablet 10 mg PO HS muscle spasms 09/06/22 10/15/23 10/14/23 gabapentin 100 mg capsule See Rx Instructions .Route .COMPLEX 09/06/22 10/15/23 10/15/23 insulin glargine 100 unit/mL (3 See Rx Instructions .Route .COMPLEX 09/06/22 10/15/23 10/15/23 mL) subcutaneous pen (Lantus Solostar U-100 Insulin) metoclopramide HCl 10 mg tablet 10 mg PO TID 09/06/22 10/15/23 10/15/23 budesonide-formoterol HFA 80 2 puff inhalation BID 02/08/23 10/15/23 10/15/23 mcg-4.5 mcg/actuation aerosol inhaler (Symbicort) tirzepatide 15 mg/0.5 mL 15 mg subcut WK 09/19/23 10/15/23 10/11/23 subcutaneous pen injector (Mounjaro) aspirin 81 mg tablet,delayed 81 mg PO QAM #30 tabs 09/22/23 10/15/23 10/15/23 release atorvastatin 20 mg tablet 20 mg PO QAM #30 tabs 09/22/23 10/15/23 10/15/23 hydrochlorothiazide 25 mg tablet 25 mg PO QAM #30 tabs 09/22/23 10/15/23 10/15/23 losartan 100 mg tablet 100 mg PO DAILY #30 tabs 09/22/23 10/15/23 10/15/23 metoprolol succinate 100 mg 100 mg PO QAM #30 tabs 09/22/23 10/15/23 10/15/23 tablet,extended release 24 hr (Toprol XL) metoprolol succinate 50 mg 50 mg PO QPM #30 tabs 09/22/23 10/15/23 10/14/23 tablet,extended release 24 hr spironolactone 25 mg tablet 25 mg PO QAM #30 tabs 09/22/23 10/15/23 10/15/23 albuterol sulfate 90 mcg/actuation 3 inh inhalation Q6H PRN 10/15/23 10/15/23 Unknown aerosol inhaler WHEEZING/SOB ibuprofen 125 mg-acetaminophen 250 3 tab PO BID 10/15/23 10/15/23 10/15/23 mg tablet (Dual Action Pain Reliever) Active Medications Generic Name Dose Route Start Last Admin Trade Name Freq PRN Reason Stop Dose Admin Acetaminophen 650 mg 10/15/23 23:54 10/20/23 09:52 Acetaminophen 325 Mg Tab PO 11/14/23 23:53 650 mg Q4H PRN Administration pain/fever Aspirin 81 mg 10/16/23 09:00 10/20/23 09:49 Aspirin 81 Mg Ectab PO 11/15/23 08:59 81 mg QAM SOPHIA Administration Atorvastatin Calcium 20 mg 10/16/23 09:00 10/20/23 09:49 Atorvastatin 20 Mg Tab PO 11/15/23 08:59 20 mg QAM SOPHIA Administration Cyclobenzaprine HCl 10 mg 10/16/23 21:00 10/19/23 20:11 Cyclobenzaprine Hcl 10 Mg Tab PO 11/15/23 20:59 10 mg HS SOPHIA Administration Dicyclomine HCl 10 mg 10/15/23 23:54 10/19/23 09:00 Dicyclomine Hcl 10 Mg Cap PO 11/14/23 23:53 10 mg QID PRN Administration Diarrhea Enoxaparin Sodium 40 mg 10/16/23 06:00 10/19/23 05:38 Enoxaparin Inj 40 Mg/0.4 Ml Syr SQ 11/15/23 05:59 40 mg Q24H SOPHIA Administration Famotidine 20 mg 10/16/23 21:00 10/19/23 20:11 Famotidine 20 Mg Tab PO 11/15/23 20:59 20 mg HS SOPHIA Administration Fluticasone/Vilanterol 1 puffs 10/16/23 09:00 10/20/23 09:47 Fluticasone/Vilanterol 100/25mcg 14 Puffs/Inhaler INH 11/15/23 08:59 1 puffs DAILY SOPHIA Administration Gabapentin 100 mg 10/16/23 09:00 10/20/23 09:50 Gabapentin 100 Mg Cap PO 11/15/23 08:59 100 mg QAM SOPHIA Administration Gabapentin 200 mg 10/16/23 21:00 10/19/23 20:12 Gabapentin 100 Mg Cap PO 11/15/23 20:59 200 mg HS SOPHIA Administration Hydrochlorothiazide 25 mg 10/16/23 09:00 10/20/23 09:48 Hydrochlorothiazide 25 Mg Tab PO 11/15/23 08:59 25 mg QAM SOPHIA Administration Lactated Ringer's 1,000 mls @ 15 mls/hr 10/20/23 13:00 10/20/23 12:58 Lr IV 11/19/23 12:59 15 mls/hr .Q24H SOPHIA Administration Insulin Aspart 0 units 10/20/23 06:30 10/20/23 12:16 Insulin Aspart Per Unit Charge SC 11/19/23 06:29 1 units Q6 SOPHIA Administration Insulin Glargine 30 units 10/16/23 09:00 10/20/23 10:10 Lantus Per Unit Charge SC 11/15/23 08:59 30 units QAM SOPHIA Administration Insulin Glargine 40 units 10/16/23 00:15 10/19/23 20:58 Lantus Per Unit Charge SQ 11/15/23 00:14 40 units HS SOPHIA Administration Losartan Potassium 100 mg 10/16/23 09:00 10/20/23 09:48 Losartan Potassium 50 Mg Tab PO 11/15/23 08:59 100 mg DAILY SOPHIA Administration Metoclopramide HCl 10 mg 10/16/23 07:30 10/20/23 12:16 Metoclopramide Hcl 10 Mg Tablet PO 11/15/23 07:29 10 mg AC SOPHIA Administration Metoprolol Succinate 100 mg 10/16/23 09:00 10/20/23 09:48 Metoprolol Succ 50mg Ext Rel Tab PO 11/15/23 08:59 100 mg QAM SOPHIA Administration Metoprolol Succinate 50 mg 10/16/23 21:00 10/19/23 20:11 Metoprolol Succ 50mg Ext Rel Tab PO 11/15/23 20:59 50 mg QPM SOPHIA Administration Oxycodone HCl 5 mg 10/15/23 23:54 10/19/23 22:12 Oxycodone Hcl Ir 5 Mg Tab (Immediate Release) PO 10/29/23 23:53 5 mg Q6H PRN Administration Mod-Sev Pain (Scale 4-10) Pantoprazole Sodium 40 mg 10/16/23 09:00 10/20/23 09:47 Pantoprazole 40 Mg Tab PO 11/15/23 08:59 40 mg BID SOPHIA Administration Senna/Docusate Sodium 1 tab 10/19/23 10:15 10/20/23 09:50 Docusate Sodium/Senna 50/8.6mg Tab PO 11/18/23 10:14 1 tab QAM SOPHIA Administration Spironolactone 25 mg 10/16/23 09:00 10/20/23 09:49 Spironolactone 25 Mg Tab PO 11/15/23 08:59 25 mg QAM SOPHIA Administration NPO Date Last Intake of Fluids: 10/19/23 Time Last Intake of Fluids: 23:30 Last Intake of Fluids Comment: 1000 am sip water w/ meds Date Last Intake of Solids: 10/19/23 Time Last Intake of Solids: 21:30 Past Medical History Medical History Sleep apnea Multiple pulmonary nodules determined by computed tomography of lung Arthritis Low magnesium level History of RSV infection & flu a few months ago. Tachycardia chronic high heart rate - unknown etiology - a few months ago increased dose of metoprolol. Rhinovirus dx May 23 [facility] & another illness dx - ? name of /antibiotic and inhalers for. feeling better: only symptom : sore throat. COPD (chronic obstructive pulmonary disease) ? dx of Peripheral neuropathy Diabetes mellitus, type 2 Hypertension Tobacco use Restrictive lung disease Elevated liver function tests History of DVT (deep vein thrombosis) "years ago">no known cause Tussive syncope "occurred only one time, no recent issues" Esophagitis Osteoarthritis Hx of pancreatitis resolved GERD (gastroesophageal reflux disease) Cardiac murmur A CHILD Erectile dysfunction MRSA (methicillin resistant Staphylococcus aureus) carrier over 2 yrs ago>"not sure where it was" Intellectual disability Obstructive sleep apnea cpap Obesity IBS (irritable bowel syndrome) History of ventricular tachycardia "nonsustained" Exercise / Class Metabolic Activity III < 4 Walking/Shop/Light housework Past Family History Family History Brother Family history of diabetes mellitus Environmental allergies Asthma Mother Family history of diabetes mellitus Hypertension Environmental allergies Father Family history of diabetes mellitus Hypertension Heart disease Grandfather (Paternal) Lung cancer smoker Aunt Bleeding disorder Other No family history of adverse response to anesthesia Past Surgical History Surgical History History of appendectomy 02/10/2023 History of reduction of nasal fracture 09/25/21-Dr. Garcia Status post incision and drainage LLE History of shoulder surgery right-2019 H/O foot surgery LEFT-2018 History of arthroscopy LEFT [id number] History of esophagogastroduodenoscopy (EGD) History of colonoscopy with most recent attempt: failed prep. Told would need a 2 day prep prior to colonoscopy in Sep 2023. History of tooth extraction History of tonsillectomy and adenoidectomy 1979 Past Anesthesia History No Hx of Anesthesia Complications and No Family Hx of Anesthesia Complications History of PONV No Hx of PONV and No Hx of Motion Sickness Social History Smoking Status: Current every day smoker tobacco type: cigarettes Smoking cigarettes per day: 1 pack Do You Dip or Chew Tobacco: No Hx Alcohol Use: Yes Alcohol type: beer alcohol intake frequency: holidays/special occasions only Hx Substance Use: No substance use type: does not use Physical Exam Vital Signs Last Vital Signs Temp 37.1 C 10/20/23 12:50 Pulse 98 H 10/20/23 12:50 Resp 20 10/20/23 12:50 BP 121/70 10/20/23 12:50 Pulse Ox 92 10/20/23 12:50 O2 Del Method Room Air 10/20/23 12:50 Constitutional + morbidly obese ENMT Mouth: + dentition abnormality and + edentulous Thyromental Distance: > or= 3.5 Finger Breadths Mallampati Class: II Neck normal visual inspection, trachea midline and + facial hair; neck extension not limited Respiratory normal respiratory effort Auscultation: + diminished lung sounds Cardiovascular Rate/Rhythm: regular rate and regular rhythm Heart Sounds: no murmur Vessels: no carotid bruit Musculoskeletal Spine: normal cervical ROM and no pain with cervical ROM Extremities: + extremities abnormal to inspection and full ROM of extremities Neurologic moves all extremities Motor/Sensory: + sensory deficit Psychiatric Orientation: alert and oriented x 3 Testing Laboratory Results 10/20/23 06:45 10/20/23 06:45 Hemoglobin A1c 8.8 % (4.5-5.6) H 10/16/23 07:59 10/20/23 10/20/23 10/20/23 12:47 11:50 06:15 POC Glucose 148 H 155 H 181 H Electrocardiogram Date: 09/22/23 Findings: + NSR @ (@ 93;RAD) Chest X-Ray Date: 09/20/23 Findings: + cardiomegaly and + pulmonary vascular congestion Echocardiogram Date: 09/20/23 EF: 50% LV Function: dysfunctional RWMA: + none and + hypokinetic (borderline global HK) Other Findings: + LVH (moderate) Valvular Disease: + no significant valvular disease
[2023-10-20] MEDS ORDERED: LIDOCAINE 1%/EPINEPHRINE 1:100,000 20 ML VIAL ONE (13:32)
--- NOTE | 2023-10-20 13:41 | History & Physical Bridge Note ---
Date of Service October 20, 2023 History & Physical Bridge Note I have examined the patient, reviewed the History & Physical and in the interval since the performance of the History & Physical I have noted the following changes of clinical significance: no changes noted
[2023-10-20] MEDS ORDERED: GLYCOPYRROLATE 0.2 MG/ML VIAL ONE (14:39)
[2023-10-20] MEDS ORDERED: KETAMINE HCL 10MG/ML SYR ONE (14:51)
[2023-10-20] MEDS ORDERED: fentaNYL citrate PF 100 MCG/2 ML VIAL IV PRN (15:14)
[2023-10-20] MEDS ORDERED: FLUMAZENIL 0.1 MG/1 ML 10 ML VIAL IV PRN (15:14)
[2023-10-20] MEDS ORDERED: ePHEDrine sulfate 50 MG/ML AMP IV PRN (15:14)
[2023-10-20] MEDS ORDERED: ONDANSETRON INJ 2 MG/ML 2 ML VIAL IV PRN (15:14)
[2023-10-20] MEDS ORDERED: PROMETHAZINE HCL 12.5 MG in SODIUM CHLORIDE 0.9% 50 ML IV PRN (15:14)
[2023-10-20] MEDS ORDERED: ATROPINE SULFATE 0.1 MG/ML 10ML SYR IV PRN (15:14)
[2023-10-20] MEDS ORDERED: NALOXONE HCL 0.4 MG/1 ML VIAL/CARP IV PRN (15:14)
[2023-10-20] MEDS ORDERED: METOPROLOL TARTRATE 1 MG/ML VIAL IV ONE ×2 (15:51)
[2023-10-20] MEDS ORDERED: LABETALOL HCL IV 5 MG/ML 20ML IV ONE ×2 (16:02)
--- NOTE | 2023-10-20 17:26 | Post Operative Brief Note ---
Immediate Post Op Note v1 Date of Surgery October 20, 2023 Pre & Post Diagnosis Operation Date: 10/20/23 13:30 Pre-Op Diagnosis: LEFT ANKLE PAIN I identified the patient and participated in the time-out.: Yes Procedure Operation Date: 10/20/23 13:30 Actual Procedures p Left Ankle Tibiotalocalcaneal Arthrodesis(Left) - Glenn Camacho DPM, [place] Surgeon Glenn Camacho DPM, [place] Facing End Trimmer none Estimated Blood Loss 10 Findings Consistent with Post-Op Diagnosis consistent with pre operative findings
--- NOTE | 2023-10-20 17:37 | XRay Report ---
SINGLE VIEW LEFT ANKLE CLINICAL HISTORY: Intraoperative image. Incorrect instrument count. FINDINGS: A single lateral view of the left ankle is compared to study dated 10/15/2023. The skeletal structures are osteopenic. The distal fibula is surgically absent. A nail has been placed extending from the tibial shaft to the base of the calcaneus. There is nondisplaced fracture of the tibial shaf t above the nail. 2 cortical lag screws transfix the tibial component of the nail, and 2 cortical lag screws transfix the distal component within the tarsal bones. The previously identified talar fractu res not well assessed. Ossific densities overlying the ankle joint likely represents bone graft mater ial. Numerous skin clips are in place. No additional radiodense foreign body is seen. There is diffus e soft tissue edema. IMPRESSION: 1. No retained radiodense foreign body is identified to suggest retained surgical implement. 2. Postsurgical change as above. 3. There is nondisplaced fracture of the tibial shaft above the nail. Electronically signed by: Jaydon Wallace M.D. 10/20/2023 5:35 PM
--- NOTE | 2023-10-20 18:03 | Anesthesiology Progress Note ---
Date of Service October 20, 2023 Anesthesia Post Procedure Vital Signs Vital Signs: Temp Pulse Pulse Resp BP Pulse Ox O2 Del Method 10/20/23 17:55 93 H 17 120/90 99 Oxymask 10/20/23 17:45 92 H 19 119/102 H 95 Oxymask 10/20/23 17:35 92 H 11 L 117/95 99 Oxymask 10/20/23 17:29 36.3 C L 92 H 12 152/116 H 92 Oxymask 10/20/23 12:50 37.1 C 98 H 20 121/70 92 Room Air 10/20/23 08:10 Room Air 10/20/23 07:09 36.8 C 94 H 15 145/78 H 95 Room Air 10/19/23 19:27 36.7 C 92 H 18 127/76 94 Room Air O2 Flow Rate 10/20/23 17:55 2 10/20/23 17:45 2 10/20/23 17:35 4 10/20/23 17:29 6 10/20/23 12:50 10/20/23 08:10 10/20/23 07:09 10/19/23 19:27 Pain Intensity Left Foot: Pain Intensity: 4 Transfer of Care Handoff Completed per policy Notes Mental Status: alert / awake / arousable Patient Amnestic to Procedure: Yes Nausea / Vomiting: adequately controlled Pain: adequately controlled Airway Patency, RR, SpO2: stable & adequate BP & HR: stable & adequate Hydration State: stable & adequate Anesthetic Complications: no major complications apparent and Pt Satisfied with anesthetic care
--- NOTE | 2023-10-20 19:48 | Fluoroscopy Report ---
INTRAOPERATIVE RADIOGRAPHS CLINICAL HISTORY: Left ankle arthrodesis. Incorrect instrument count. Fluoro time: 104 seconds Ka,r: 3.10 mGy FINDINGS: 3 spot fluoroscopic views of the left ankle are correlated with radiographs dated 3. The distal fibula is surgically absent with overlying bone graft material. A nail has been placed extending from the tibial shaft to the calcaneus. 2 cortical lag screws transfix the tibial component , and 2 additional cortical screws transfix the tarsal component. The orthopedic hardware appears int act. Overlying soft tissue edema is noted. No radiodense foreign body is identified to suggest retain ed surgical implement. IMPRESSION: Intraoperative images from left ankle arthrodesis as above. Electronically signed by: Jaydon Wallace M.D. 10/20/2023 7:47 PM
[2023-10-20] MEDS: FAMOTIDINE 20 MG TAB PO SCH (20:11)
[2023-10-20] MEDS: CYCLOBENZAPRINE HCL 10 MG TAB PO SCH (20:12)
[2023-10-20] MEDS: LANTUS PER UNIT CHARGE SQ SCH (20:46)
[2023-10-20] MEDS: POLYETHYLENE (MIRALAX) 17 GM PACK PO SCH (20:47)
--- NOTE | 2023-10-20 21:04 | Operative Report ---
Post Operative Report Pre & Post Diagnosis Operation Date: 10/20/23 13:30 Pre-Op Diagnosis: LEFT ANKLE PAIN Post-Op Diagnosis: LEFT ANKLE PAIN I identified the patient and participated in the time-out.: Yes Procedure Operation Date: 10/20/23 13:30 Actual Procedures p Left Ankle Tibiotalocalcaneal Arthrodesis, Tendo Achilles Lengthening (Left) - Glenn Camacho DPM, [place] Surgeon Glenn Camacho DPM, [place] Firmware Software Verification Engineer none Estimated Blood Loss 10 Findings Consistent with Post-Op Diagnosis consistent with pre operative findings Specimens none Description of Procedure History of Present illness: Patient is a type II uncontrolled diabetic 47 year old male with history of chronic left talus fracture, avascular necrosis, Charcot arthropathy of left tibiotalar joint. Operative care is elected. Patient is requesting correction of present left foot and ankle pathology through tibiotalar calcaneal arthrodesis. I also discussed use of Tendo Achilles lengthening for deformity correction. Significant time was spent in [id number] discussion reviewing symptoms, diagnosis, and treatment. I have reviewed procedures in detail. I have discussed postoperative recovery in detail. All questions answered. All potential risks, benefits, complications, alternatives, rehab, potential for incomplete relief of symptoms, need for further surgery, DVT, PE, , persistent pain, swelling, scarring, weakness, neurovascular, wound complications and potential for amputations were discussed with patient. Unwanted outcomes such as, but not limited to were reviewed including under correction, overcorrection, return of deformity, infection. All questions were answered. Patient has decided to proceed with procedure as indicated. Preoperative diagnosis:1.) Left tibiotalar joint osteoarthritis, 2.) Left subtalar joint osteoarthritis, 3.) Left talus osteonecrosis and fracture 4.) Charcot arthropathy left ankle Postoperative diagnosis: Same Name of operation: 1.) Tendo Achilles lengthening Left 2.) Tibiotalar arthrodesis Left 3.) Subtalar arthrodesis Left Surgeon: Dr. Camacho Firmware Software Verification Engineer: None Anesthesia: Local with monitored anesthesia care Estimated blood loss: 5mL Procedure in detail: Under mild sedation the patient was brought in the operating room placed on the operating table in supine position. A thigh calf tourniquet was then placed about the patient's left thigh. Following sedation, local anesthesia was obtained about the left ankle utilizing 20 cc of a 1:1 mixture of 1% lidocaine plain and 0.5% Marcaine plain. The foot, ankle, leg above the knee was then prepped, scrubbed, and draped, in the usual aseptic manner. An Esmarch bandage utilized examining the patient's left lower extremity and the pneumatic ankle tourniquet was inflated. Attention was directed to the left ankle. The distal fibula was palpated for incision placement. Next, utilizing a sharp, sterile, 15 blade, an a curvilinear incision was made along the distal fibula extending to the subtalar joint. Utilizing both sharp and blunt dissection the incision was deepened through subcutaneous tissue with care being taken to identify and retract all neurovascular structures. Bleeders were cauterized as necessary. The peroneal tendon sheath was opened and the tendons were identified and protected posteriorly. The distal fibula was exposed. Extensive joint degeneration changes were observed. The fibula was resected just proximal to the ankle joint. It was dissected free and passed from the operative field. The underlying subtalar and tibiotalar joints were visualized. Extensive erosive changes were noted with marginal spurring. There were some minimal signs of collapse of the lateral talus observed. Malleable retractors were then placed along the anterior and posterior soft tissue envelopes. The tibia was prepped resecting the articular. The talar plafond and was resected removing articular surface down to subchondral bone. The subtalar joint was then resected both the articular cartilage and the adjacent subchondral plate. The margins were then fenestrated with a 2.5 mm drill bit. Fish scaling was completed to both the subtalar and tibiotalar joint. Healthy bleeding was noted. At this time attention was directed to the posterior aspect of the Achilles distal tendon. 3 separate percutaneous linear incisions were made approximately 3 cm apart into the tendon utilizing a sharp sterile 15 blade. The 15 blade was carried midline and into the tendon then turned horizontal exiting the tendon distally and proximally medially. The middle incision was turned horizontal and exited from the tendon laterally. The foot and ankle was then noted to be taken out of Equinus allowing for adequate positioning prior to arthrodesis. The Orthofix hindfoot and ankle nail insertion wire at this time was passed through the inferior calcaneus crossing into the distal tibial metaphysis. Positioning was assessed fluoroscopically and found to be satisfactory. A linea r incision was made at the skin to wire interface and blunt dissection was carried to an osseous interval. Sequential drilling of the calcaneus and distal tibia was accomplished. The insertion wire was then removed and reaming wire was placed. Sequential reaming of the distal tibia was accompanied under fluoroscopic guidance. The current tourniquet at this time was deflated and prompt hyperemic response was noted to the extremity. It was determined that a 200 x 11 mm nail would be appropriate. The reaming wire was then removed. The nail was partially inserted and the joint was then packed with vivagen bone graft. The nail was at this time impacted. Positioning was assessed fluoroscopically. Two static screws were placed within the proximal tibia component of the nail. The device was then secured within the calcaneus through both the lateral to medial and posterior to anterior screw. The tibiotalar fusion site was then further impacted. Positioning was assessed fluoroscopically. The position was found to be satisfactory. Clinically, the foot seems to be well-positioned and the joint well compressed. Deformity correction was achieved. The foot itself was plantigrade. The long axis of the foot was aligned well with the long axis of the tibia. Copious amounts of sterile normal saline was utilized to flush the wounds. The deep structures were coapted utilizing 3-0 PDS and the skin was reapproximated coapted utilizing horizontal suture technique with 4-0 nylon and key. The incision was dressed with Betadine soaked Adaptic followed by sterile compressive dressing consisting of 4 x 4's and Rosy. A posterior splint, Mario wrap, postoperative shoe were then applied. Patient tolerated procedure and anesthesia well. The Patient was transferred to recovery room with vital signs stable and vascular status intact all toes of the left foot. Following a period of Postoperative monitoring. The patient will be re-admitted to the floor resuming all preoperative orders. I attest to the content of the Intraoperative Record and any orders documented therein. Any exceptions are noted below.
[2023-10-21] MEDS: POLYETHYLENE (MIRALAX) 17 GM PACK PO SCH ×4 (04:09→21:13)
[2023-10-21 07:26] LABS: BUN Creatinine Ratio 32.5 (10-20); Calcium 8.9 mg/dl (8.6-10.3); Creatinine Clr Calc Pharmacy 108.9 ml/min; Est GFR (African American) 77.1 ml/min; Est GFR (Non-African American) 66.5 ml/min
[2023-10-21 07:34] LABS: Hematocrit (blood only) 37.2 % (42.0-52.0); Hemoglobin 12.5 g/dl (14.0-18.0); Mean Corpuscular Hemoglobin 27.2 pg (25.0-34.0); Mean Corpuscular Hgb Conc 33.6 g/dL (32.0-36.0); Mean Platelet Volume 9.9 fL (9.4-12.4); Platelet Count 234 K/uL (130-400); RDW Coefficient of Variation 13.8 % (11.5-14.5); RDW Standard Deviation 39.8 fL (36.4-46.3); Red Blood Count 4.59 M/uL (4.70-6.10); White Blood Count 12.05 K/ul (4.8-10.8)
[2023-10-21] MEDS: SPIRONOLACTONE 25 MG TAB PO SCH (08:28)
[2023-10-21] MEDS: ASPIRIN 81 MG ECTAB PO SCH (08:28)
[2023-10-21] MEDS: METOCLOPRAMIDE HCL 10 MG TABLET PO SCH ×3 (08:28→16:44)
[2023-10-21] MEDS: hydroCHLOROthiazide 25 MG TAB PO SCH (08:28)
[2023-10-21] MEDS: GABAPENTIN 100 MG CAP PO SCH ×2 (08:28→21:12)
[2023-10-21] MEDS: ATORVASTATIN 20 MG TAB PO SCH (08:28)
[2023-10-21] MEDS: LOSARTAN POTASSIUM 50 MG TAB PO SCH (08:28)
[2023-10-21] MEDS: PANTOprazole 40 MG TAB PO SCH ×2 (08:28→21:11)
[2023-10-21] MEDS: METOPROLOL SUCC 50MG EXT REL TAB PO SCH ×2 (08:28→21:15)
[2023-10-21] MEDS: DOCUSATE SODIUM/SENNA 50/8.6MG TAB PO SCH (08:29)
[2023-10-21] MEDS: FLUTICASONE/VILANTEROL 100/25MCG 14 PUFFS/INHALER INH SCH (08:29)
[2023-10-21] MEDS: INSULIN ASPART PER UNIT CHARGE SC SCH ×4 (08:30→22:19)
[2023-10-21] MEDS: LANTUS PER UNIT CHARGE SC SCH (08:31)
[2023-10-21] MEDS: oxyCODONE HCL IR 5 MG TAB (IMMEDIATE RELEASE) PO PRN ×3 (08:37→23:39)
[2023-10-21] MEDS ORDERED: COUGH DROP (SUGAR FREE) LOZ 24 LOZ/1 BOX BUCCAL ONE (10:48)
[2023-10-21] MEDS: ACETAMINOPHEN 325 MG TAB PO PRN ×2 (12:16→21:10)
[2023-10-21] MEDS: LACTATED RINGER'S 1,000 ML IV SCH (13:23)
[2023-10-21] MEDS ORDERED: oxyCODONE HCL IR 5 MG TAB (IMMEDIATE RELEASE) PO STA (17:00)
--- NOTE | 2023-10-21 17:03 | Hospitalist Progress Note ---
Date of Service October 21, 2023 Assessment & Plan (1) Charcot's joint arthropathy in type 2 diabetes mellitus: (2) Left ankle pain: (3) Osteonecrosis: (4) Acute pain of left lower extremity: (5) Sleep apnea: Plan Patient is a 47 yr male with H/O Type 2 diabetes, diabetic neuropathy, chronic respiratory failure with hypercapnia, obstructive sleep apnea, COPD, restrictive lung disease, hyperlipidemia, morbid obesity, gastroparesis, irritable bowel syndrome, GERD, history of DVT, cervical spinal stenosis, presents with left ankle pain going on for several months. Left ankle pain Osteonecrosis --Ankle MRI:Findings suggestive of osteonecrosis of the talus with chronic mid- body fracture disrupting the articular surface. Secondary osteoarthritic changes of the tibiotalar joint. Moderate joint effusion with synovitis. Subtalar joint degeneration with degenerative marrow signal in the calcaneus. Chronic injury of the calcaneofibular ligament. Chronic injury of the deltoid ligament. Short segment split tear of the peroneus brevis tendon. Edema within t he flexor hallucis longus muscle suggesting muscle strain. --Left LE CT:Chronic ununited intra-articular talar fracture with prominent subcortical cystic change suggestive of pseudoarticulation. There is chronic articular flattening of the talus with numerous intra-articular subcentimeter bone fragments/loose bodies. Mild midfoot and hindfoot osteoarthritis with spurring of the calcaneus. Moderate tibiotalar degeneration. Diffusely increased sclerosis of the talus suggestive of avascular necrosis. --Venous Doppler:No DVT within the left lower extremity. --LLE CTA: Normal CT angiogram of the left foot. The regional arteries are widely patent.2. There is unchanged appearance of a chronic nonunited intra- articular talar fracture as compared to the recent CT scan of the ankle.3. Ankle joint effusion with numerous small radiodense foreign bodies.4. Flattening of the talar dome with osteoarthritic change at the tibiotalar articulation. -- Patient requires tibiotalocalcaneal hindfoot arthrodesis Appreciate podiatry input Continue to use boot with ambulation POD#1 Left Ankle Tibiotalocalcaneal Arthrodesis, Tendo Achilles Lengthening by Dr. Camacho Bowel movement yesterday Continue pain control NWB LLE per Dr. Camacho for now Obstructive sleep apnea on CPAP nightly Says currently his CPAP machine has been getting adjusted for settings. Currently not using CPAP History of COPD Restrictive lung disease Chronic respiratory hypercapnia Continue home inhalers Will monitor DM II HbA1c 8.8, 10/16/23 Continue home long-acting insulin continue Insulin while hospitalized Monitor BGs, stable Hypertension Continue hydrochlorothiazide, losartan and metoprolol succinate and spironolactone monitor BP Morbid obesity BMI 39.8 DVT Px: Will inquire with Dr. Camacho about resuming Lovenox SQ tmrw Code Status Full code Pt was seen and examined in collaboration with Dr. Alamo, please see addendum Admission and Anticipated Discharge Date Admission Date: October 15, 2023 Supervising Physician Co-Signing Physician Notes I have seen and discussed the case with the collaborating PANajma. I agree with the above H&P. I have reviewed and confirmed the patients medical history, the findings on physical examination, and the patients diagnosis and treatment plan with Nadeem AYALA and agree with the information documented. In short, Mr Akhtar is a 47 year old gentleman who is now POD 1 left foot surgery today given severity of osteonecrosis. Patient declined any acute concerns this morning. Physical exam unremarkable at bedside. Plan for OR with Dr. Camacho. Rest of plan as above. Subjective Patient was seen and examined in 361 in follow-up Charcot arthropathy. POD#1 Left Ankle Tibiotalocalcaneal Arthrodesis, Tendo Achilles Lengthening by Dr. Camacho. Having some surgical pain. No bowel movement yet. Denies F/C, chest pain, sob, n/v/d. Review of Systems Review of Systems: At least ten systems reviewed and negative except as noted in the HPI. Physical Exam Physical Exam: Gen: WD/WN, NAD, laying in bed, A&Ox3, obese HEENT: Normocephalic, atraumatic, conjunctivae moist, sclerae anicteric, mucous membranes moist Lung: Clear to Auscultation bilaterally, no wheezes/rales/rhonchi Heart: Regular rate, regular rhythm, no murmurs, rubs, or gallops Abdomen: Soft, NT, ND +BS x 4 Extremities: L foot dressing c/d/i, no edema Skin: Warm, no rash Results & Data Results & Data Vital Signs (Past 12 Hours) Vital Signs Temp Pulse Pulse Resp BP BP Pulse Ox 10/21/23 15:22 95 10/21/23 14:51 37.8 C H 103 H 18 123/72 93 10/21/23 07:57 37.0 C 102 H 18 123/70 95 O2 Del Method 10/21/23 15:22 Room Air 10/21/23 14:51 Room Air 10/21/23 07:57 Room Air Laboratory Results Short CBC 10/21/23 Range/Units 06:34 WBC 12.05 H (4.8-10.8) K/ul Hgb 12.5 L (14.0-18.0) g/dl Hct 37.2 L (42.0-52.0) % Plt Count 234 (130-400) K/uL BMP 10/21/23 06:34 Sodium 135 L Potassium 5.0 Chloride 101 Carbon Dioxide 26 BUN 41 H Creatinine 1.26 Glucose 174 H Calcium 8.9 Diagnostic Findings Venous Doppler Study 10/15/23 14:21 LEFT LOWER EXTREMITY VENOUS DOPPLER HISTORY: Acute pain and swelling of the left lower leg L foot, ankle and L calf pain, atraumatic COMPARISON STUDY: 07/29/2018 FINDINGS: There is normal compressibility, flow, and augmentation within the left lower extremity deep venous system. IMPRESSION: No DVT within the left lower extremity. ACT 112: Negative or not required by law. Electronically signed by: Gil Hilliard M.D. 10/15/2023 3:56 PM Ankle X-Ray 10/15/23 16:58 XR ankle LT min 3V routine, XR foot LT min 3V routine CLINICAL HISTORY: L foot, ankle and L calf pain, atraumatic TECHNIQUE: 3 views of the left ankle and 3 views of the left foot were obtained. Comparison: None available at the time of this dictation. FINDINGS: There is a angulated fracture of the calcaneus. Well-corticated density adjacent to the navicular bone likely represents an os navicularis. The joint spaces are well preserved. The ankle mortise is intact. Soft tissue swelling is seen about the ankle. IMPRESSION: There is an angulated fracture of the calcaneus with associated soft tissue swelling. ACT 112: Negative or not required by law. Electronically signed by: Jovanni Burris M.D. 10/15/2023 6:07 PM Foot X-Ray 10/15/23 16:58 XR ankle LT min 3V routine, XR foot LT min 3V routine CLINICAL HISTORY: L foot, ankle and L calf pain, atraumatic TECHNIQUE: 3 views of the left ankle and 3 views of the left foot were obtained. Comparison: None available at the time of this dictation. FINDINGS: There is a angulated fracture of the calcaneus. Well-corticated density adjacent to the navicular bone likely represents an os navicularis. The joint spaces are well preserved. The ankle mortise is intact. Soft tissue swelling is seen about the ankle. IMPRESSION: There is an angulated fracture of the calcaneus with associated soft tissue swelling. ACT 112: Negative or not required by law. Electronically signed by: Jovanni Burris M.D. 10/15/2023 6:07 PM Ankle MRI 10/15/23 18:31 Exam(s): MRI LEFT ANKLE Without Contrast EXAM: MR Left Lower Extremity Without Intravenous Contrast, Ankle CLINICAL HISTORY: Reason for exam: atraumatic ankle pain, fracture, tachycardia. TECHNIQUE: Multiplanar magnetic resonance images of the left ankle without intravenous contrast. COMPARISON: Left ankle radiographs 10/15/23 FINDINGS: Syndesmotic ligaments are intact. Anterior talofibular ligament and posterior talofibular ligament are intact. Thickening of the calcaneofibular ligament is consistent with chronic sprain. Deltoid ligament is intact, with increased intrasubstance signal suggesting old injury. There is abnormal curvilinear signal and cystic changes within the talus, with surrounding marrow changes. Findings may reflect osteonecrosis of the talus. There is an associated chronic mid-talar fracture extending to the central talar dome with articular surface irregularity. There is secondary osteoarthritic change of the tibiotalar joint. There is a moderate joint effusion with synovitis. There is subtalar joint degeneration. Marrow signal changes within the calcaneus are likely on a degenerative basis. There is no evidence of acute fracture or dislocation. Achilles tendon and plantar aponeurosis are intact. There is a short segment longitudinal split tear of the peroneus brevis tendon. Peroneus longus tendon is intact. Medial flexor tendons and anterior extensor tendons are intact. There is edema within the flexor hallucis longus muscle. IMPRESSION: 1. Findings suggestive of osteonecrosis of the talus with chronic mid- body fracture disrupting the articular surface. Secondary osteoarthritic changes of the tibiotalar joint. Moderate joint effusion with synovitis. 2. Subtalar joint degeneration with degenerative marrow signal in the calcaneus. 3. Chronic injury of the calcaneofibular ligament. Chronic injury of the deltoid ligament. 4. Short segment split tear of the peroneus brevis tendon. 5. Edema within the flexor hallucis longus muscle suggesting muscle strain. Electronically signed by: Diana Hernandez M.D. 10/15/23 20:[address] 10/16/23 06:23 CT ankle LT wo con HISTORY: 47 years-old Male AVN with talus fracture Chronic left ankle pain with avascular necrosis. COMPARISON: MRI left ankle 10/15/2023, radiographs 10/15/2023, CT October 18, 2017. TECHNIQUE: Multiple axial CT images of the left ankle were obtained without the use of IV contrast. A dose lowering technique was used consistent with the principals of ALARA. FINDINGS: Chronic ununited peripherally corticated intra-articular fracture of the mid talus is noted with fracture line extending into the mid, medial and lateral as pects of the talar dome and also into the middle and posterior facets of the talus. This demonstrates prominent subcortical cystic changes with bony fragmentation resulting in numerous intra-articular subcentimeter loose bodies. There is flattening of the articular head of the talus with moderate tibiotalar degeneration. Fused os trigonum. Moderate-sized calcaneal enthesophytes. Mild midfoot and hindfoot osteoarthritis. There is diffusely increased sclerosis of the talus. Tendons and ligaments are not well evaluated by CT technique. IMPRESSION: 1. Chronic ununited intra-articular talar fracture with prominent subcortical cystic change suggestive of pseudoarticulation. There is chronic articular flattening of the talus with numerous intra-articular subcentimeter bone fragments/loose bodies. 2. Mild midfoot and hindfoot osteoarthritis with spurring of the calcaneus. 3. Moderate tibiotalar degeneration. 4. Diffusely increased sclerosis of the talus suggestive of avascular necrosis. ACT 112: Negative or not required by law. The above report was generated using voice recognition software. It may contain grammatical, syntax or spelling errors. Dictated: 10/16/2023 11:29 AM Transcribed: 10/16/2023 12:48 PM Darnell [id number] [email or web address] Electronically signed by: Gil Hilliard M.D. 10/16/2023 1:50 PM Lower Extremity CTA 10/19/23 08:00 CT ANGIOGRAM OF THE LEFT FOOT COMBO CLINICAL HISTORY: Preoperative examination. Talar fracture. COMPARISON STUDY: CT scan of the left ankle dated 10/16/2023. TECHNIQUE: Before and following the IV administration of 119 mL of Optiray 320, CT angiogram of the left foot is performed from the ankle to the base of the foot. Images are reviewed in the axial, sagittal, and coronal planes. IV contrast was administered without complication. MIPS images were assessed. A dose lowering technique was utilized adhering to the principles of ALARA. CT DOSE: 845.57 mGy.cm FINDINGS: The skeletal structures are well-mineralized. Again seen is diffuse sclerosis of the talus with a chronic nonunited and peripherally corticated intra-articular fracture of the mid talus. Fracture involves the talar dome as well as the middle and posterior facets. There is associated subcortical cystic change and bony fragmentation, with numerous tiny intra-articular foreign bodies. There is flattening of the talus with degenerative change at the tibiotalar articulation. A joint effusion is noted. No additional fracture is seen. There are large dorsal and small plantar heel spurs. A fused os trigonum is incidentally noted. The Achilles tendon is intact as visualized. The anterior tibial, posterior tibial, and peroneal arteries are widely patent. The dorsalis pedis artery is widely patent. No peripherally-enhancing fluid collection is seen on the angiogram phase images. IMPRESSION: 1. Normal CT angiogram of the left foot. The regional arteries are widely patent. 2. There is unchanged appearance of a chronic nonunited intra-articular talar fracture as compared to the recent CT scan of the ankle. 3. Ankle joint effusion with numerous small radiodense foreign bodies. 4. Flattening of the talar dome with osteoarthritic change at the tibiotalar articulation. ACT 112: Negative or not required by law. Dictated: 10/19/2023 10:29 AM Transcribed: 10/19/2023 10:55 AM Darnell [id number] [email or web address] Electronically signed by: Jaydon Wallace M.D. 10/19/2023 11:09 AM Ankle X-Ray 10/20/23 00:00 INTRAOPERATIVE RADIOGRAPHS CLINICAL HISTORY: Left ankle arthrodesis. Incorrect instrument count. Fluoro time: 104 seconds Ka,r: 3.10 mGy FINDINGS: 3 spot fluoroscopic views of the left ankle are correlated with radiographs dated 10/15/2023. The distal fibula is surgically absent with overlying bone graft material. A nail has been placed extending from the tibial shaft to the calcaneus. 2 cortical lag screws transfix the tibial component, and 2 additional cortical screws transfix the tarsal component. The orthopedic hardware appears intact. Overlying soft tissue edema is noted. No radiodense foreign body is identified to suggest retained surgical implement. IMPRESSION: Intraoperative images from left ankle arthrodesis as above. Electronically signed by: Jaydon Wallace M.D. 10/20/2023 7:47 PM Ankle X-Ray 10/20/23 00:00 SINGLE VIEW LEFT ANKLE CLINICAL HISTORY: Intraoperative image. Incorrect instrument count. FINDINGS: A single lateral view of the left ankle is compared to study dated 10/15/2023. The skeletal structures are osteopenic. The distal fibula is surgically absent. A nail has been placed extending from the tibial shaft to the base of the calcaneus. There is nondisplaced fracture of the tibial shaft above the nail. 2 cortical lag screws transfix the tibial component of the nail, and 2 cortical lag screws transfix the distal component within the tarsal bones. The previously identified talar fractures not well assessed. Ossific densities overlying the ankle joint likely represents bone graft material. Numerous skin clips are in place. No additional radiodense foreign body is seen. There is diffuse soft tissue edema. IMPRESSION: 1. No retained radiodense foreign body is identified to suggest retained surgical implement. 2. Postsurgical change as above. 3. There is nondisplaced fracture of the tibial shaft above the nail. Electronically signed by: Jaydon Wallace M.D. 10/20/2023 5:35 PM (5) Sleep apnea Sleep apnea type: unspecified type Qualified Code(s): G47.30 - Sleep apnea, unspecified
[2023-10-21] MEDS: FAMOTIDINE 20 MG TAB PO SCH (21:11)
[2023-10-21] MEDS: CYCLOBENZAPRINE HCL 10 MG TAB PO SCH (21:12)
--- NOTE | 2023-10-21 21:12 | Operative Report ---
Post Operative Report Pre & Post Diagnosis Operation Date: 10/20/23 13:30 Pre-Op Diagnosis: LEFT ANKLE PAIN Post-Op Diagnosis: LEFT ANKLE PAIN I identified the patient and participated in the time-out.: Yes Procedure Operation Date: 10/20/23 13:30 Actual Procedures p Left Ankle Tibiotalocalcaneal Arthrodesis, (Left) - Glenn Camacho DPM, MS s Tendo Achilles Lengthening (Left) - Glenn Camacho DPM, MS Surgeon Glenn Camacho DPM, MS Web Art Director none Estimated Blood Loss 10 Findings Consistent with Post-Op Diagnosis consistent with pre operative findings. Specimens 1) Clear margin proximal phalanx left hallux - pathology 2) Hallux left - microbiology Description of Procedure History of present illness: Patient is a 47-year-old male who is seen for treatment of necrotic Left great toe with osteomyelitis. X-rays and MRI positive for osteomyelitis. Patient notes a left foot ulcer open for multiple months. Patient relates minimal discomfort. All questions answered. Discussed procedure in detail and postoperative recovery. All potential risks, benefits, complications, alternatives, rehab, potential for incomplete relief of symptoms, need for further surgery, DVT, PE, , persistent pain, swelling, scarring, weakness, neurovascular, wound complications, and potential for amputations were discussed with patient. Unwanted outcomes such as, but not limited to were reviewed including under correction, overcorrection, return of deformity, infection. All questions were answered. Patient has decided to proceed with procedure as indicated. Preoperative diagnosis: left hallux osteomyelitis Postoperative diagnosis: same Name of operation: Amputation Left great toe Surgeon Dr. Camacho Web Art Director: None Anesthesia: local with monitored anesthesia care Hemostasis: None Estimated blood loss: minimal Procedure in detail: Under mild sedation the patient was brought in the operating room placed on the operating table in supine position. A pneumatic ankle tourniquet was then placed about the patient's left ankle. Following IV sedation local anesthesia was obtained about the left ray utilizing 15 cc of 1% lidocaine plain. The foot was then prepped scrubbed and draped in usual aseptic manner. Attention was then directed to the necrotic great toe. A fishmouth incision was created utilizing a sharp, sterile, #15 blade. The incision which was deepened through subcutaneous tissue using sharp blunt dissection. Care was taken to identify and retract all vital neurovascular structures. All bleeders were ligated and cauterized necessary. At this time the left hallux was removed at the metatarsal phalangeal joint.The left hallux was sent to microbiology. A portion of the proximal phalanx was sent to pathology for clear margins confirmation. Copious amounts of sterile lactate ringer were utilized to flush the incision site. The skin was then primarily closed utilizing 3-0 nylon in horizontal suture mattress techniques as well as simple suture closure. Upon completion of the procedure the incision was dressed with Betadine soaked Adaptic followed by sterile compressive dressing consisting of 4 x 4's Rosy Kerlix ABD. A post operative shoe was then applied. The Patient tolerated the procedure and anesthesia well. He was transferred to recovery room vital signs stable and vascular status intact to the left foot following.Patient re-admitted to the floor resuming all pre-operative orders. I attest to the content of the Intraoperative Record and any orders documented therein. Any exceptions are noted below.
[2023-10-21] MEDS: LANTUS PER UNIT CHARGE SQ SCH (22:19)
--- NOTE | 2023-10-21 22:21 | Orthopedic Progress Note ---
Date of Service October 21, 2023 Assessment & Plan (1) Osteonecrosis: Plan: Patient seen and evaluated in room W361-1. Patient is status post day #2 TTC left, RHONDA left (DOS: 10/20/23). Patient is non weight bearing to LLE. Potential discharge Wednesday if pain is managed. Will continue to monitor while in house. Thank you for allowing me to participate in the care of this Patient. (2) Left ankle pain: (3) Acute pain of left lower extremity: (4) Charcot's joint arthropathy in type 2 diabetes mellitus: Admission and Anticipated Discharge Date Admission Date: October 15, 2023 Subjective Patient was seen and examined in 361 resting comfortably. Patient notes pain present earlier but currently managed well. Patient is status post day #1 (DOS: 10/20/23) Left TTC arthrodesis, Left RHONDA. Physical Exam Constitutional: well developed, well nourished, + obese, cooperative and comfortable Eyes: normal visual thomas by confrontation Neck: normal visual inspection Respiratory: normal respiratory effort Cardiovascular: Rate/Rhythm: regular rate and regular rhythm Musculoskeletal: Extremities: + foot abnormality (Left ankle pain and swelling) Skin: normal turgor Neurologic: moves all extremities (Decreased epicritic sensation) Psychiatric: Orientation: alert and oriented x 3 Results & Data Vital Signs (Past 12 Hours) Vital Signs Temp Pulse Resp BP Pulse Ox O2 Del Method 10/21/23 21:10 36.9 C 103 H 18 122/68 94 Room Air 10/21/23 15:22 95 Room Air 10/21/23 14:51 37.8 C H 103 H 18 123/72 93 Room Air
[2023-10-22] MEDS: POLYETHYLENE (MIRALAX) 17 GM PACK PO SCH ×4 (03:22→21:12)
[2023-10-22] MEDS: FLUTICASONE/VILANTEROL 100/25MCG 14 PUFFS/INHALER INH SCH (08:27)
[2023-10-22] MEDS: ATORVASTATIN 20 MG TAB PO SCH (08:27)
[2023-10-22] MEDS: ASPIRIN 81 MG ECTAB PO SCH (08:27)
[2023-10-22] MEDS: METOCLOPRAMIDE HCL 10 MG TABLET PO SCH ×3 (08:27→17:05)
[2023-10-22] MEDS: LOSARTAN POTASSIUM 50 MG TAB PO SCH (08:28)
[2023-10-22] MEDS: DOCUSATE SODIUM/SENNA 50/8.6MG TAB PO SCH (08:28)
[2023-10-22] MEDS: METOPROLOL SUCC 50MG EXT REL TAB PO SCH ×2 (08:28→21:16)
[2023-10-22] MEDS: GABAPENTIN 100 MG CAP PO SCH ×2 (08:28→21:16)
[2023-10-22] MEDS: PANTOprazole 40 MG TAB PO SCH ×2 (08:28→21:16)
[2023-10-22] MEDS: hydroCHLOROthiazide 25 MG TAB PO SCH (08:28)
[2023-10-22] MEDS: SPIRONOLACTONE 25 MG TAB PO SCH (08:29)
[2023-10-22] MEDS: LANTUS PER UNIT CHARGE SC SCH (08:37)
[2023-10-22] MEDS: INSULIN ASPART PER UNIT CHARGE SC SCH ×4 (08:37→21:37)
[2023-10-22] MEDS: oxyCODONE HCL IR 5 MG TAB (IMMEDIATE RELEASE) PO PRN (08:44)
[2023-10-22] MEDS: ACETAMINOPHEN 325 MG TAB PO PRN ×2 (16:39→21:41)
--- NOTE | 2023-10-22 17:37 | Hospitalist Progress Note ---
Date of Service October 22, 2023 Assessment & Plan (1) Charcot's joint arthropathy in type 2 diabetes mellitus: (2) Left ankle pain: (3) Osteonecrosis: (4) Acute pain of left lower extremity: (5) Sleep apnea: Plan Patient is a 47 yr male with H/O Type 2 diabetes, diabetic neuropathy, chronic respiratory failure with hypercapnia, obstructive sleep apnea, COPD, restrictive lung disease, hyperlipidemia, morbid obesity, gastroparesis, irritable bowel syndrome, GERD, history of DVT, cervical spinal stenosis, presents with left ankle pain going on for several months. Left ankle pain Osteonecrosis --Ankle MRI:Findings suggestive of osteonecrosis of the talus with chronic mid- body fracture disrupting the articular surface. Secondary osteoarthritic changes of the tibiotalar joint. Moderate joint effusion with synovitis. Subtalar joint degeneration with degenerative marrow signal in the calcaneus. Chronic injury of the calcaneofibular ligament. Chronic injury of the deltoid ligament. Short segment split tear of the peroneus brevis tendon. Edema within t he flexor hallucis longus muscle suggesting muscle strain. --Left LE CT:Chronic ununited intra-articular talar fracture with prominent subcortical cystic change suggestive of pseudoarticulation. There is chronic articular flattening of the talus with numerous intra-articular subcentimeter bone fragments/loose bodies. Mild midfoot and hindfoot osteoarthritis with spurring of the calcaneus. Moderate tibiotalar degeneration. Diffusely increased sclerosis of the talus suggestive of avascular necrosis. --Venous Doppler:No DVT within the left lower extremity. --LLE CTA: Normal CT angiogram of the left foot. The regional arteries are widely patent.2. There is unchanged appearance of a chronic nonunited intra- articular talar fracture as compared to the recent CT scan of the ankle.3. Ankle joint effusion with numerous small radiodense foreign bodies.4. Flattening of the talar dome with osteoarthritic change at the tibiotalar articulation. -- Patient requires tibiotalocalcaneal hindfoot arthrodesis Appreciate podiatry input Continue to use boot with ambulation POD#2 Left Ankle Tibiotalocalcaneal Arthrodesis, Tendo Achilles Lengthening by Dr. Camacho Bowel movement 1/3 prior to OR, continue aggressive bowel regimen while on narcotics Continue pain control NWB LLE per Dr. Camacho for now, trial of a knee scooter per OT PT/OT eval - home with HH Dr. Camacho mentioned to patient possible dc Wednesday Obstructive sleep apnea on CPAP nightly Says currently his CPAP machine has been getting adjusted for settings. Currently not using CPAP History of COPD Restrictive lung disease Chronic respiratory hypercapnia Continue home inhalers Will monitor DM II HbA1c 8.8, 10/16/23 Continue home long-acting insulin continue Insulin while hospitalized Monitor BGs, stable Hypertension Continue hydrochlorothiazide, losartan and metoprolol succinate and spironolactone monitor BP Morbid obesity BMI 39.8 DVT Px: Will inquire with Dr. Camacho about resuming Lovenox SQ tmrw Code Status Full code Pt was seen and examined in collaboration with Dr. Alamo, please see addendum Admission and Anticipated Discharge Date Admission Date: October 15, 2023 Supervising Physician Co-Signing Physician Notes I have seen and discussed the case with the collaborating JAMIE. I agree with the above H&P. I have reviewed and confirmed the patients medical history, the findings on physical examination, and the patients diagnosis and treatment plan with Nikita AYALA and agree with the information documented. In short, Mr Akhtar is a 47 year old gentleman who is now POD 2 left foot surgery today given severity of osteonecrosis. Patient declined any acute concerns this morning. Physical exam unremarkable at bedside. Plan for OR with Dr. Camacho. Rest of plan as above. Subjective Patient was seen and examined in 361 in follow-up Charcot arthropathy. POD#2 Left Ankle Tibiotalocalcaneal Arthrodesis, Tendo Achilles Lengthening by Dr. Camacho. Having some surgical pain. Had a bowel movement on 1/3 prior to OR. Denies F/C, chest pain, sob, n/v/d. Pain is much better controlled with increased oxycodone dose. Review of Systems Review of Systems: At least ten systems reviewed and negative except as noted in the HPI. Physical Exam Physical Exam: Gen: WD/WN, NAD, laying in bed, A&Ox3, obese HEENT: Normocephalic, atraumatic, conjunctivae moist, sclerae anicteric, mucous membranes moist Lung: Clear to Auscultation bilaterally, no wheezes/rales/rhonchi Heart: Regular rate, regular rhythm, no murmurs, rubs, or gallops Abdomen: Soft, NT, ND +BS x 4 Extremities: L foot dressing c/d/i, no edema Skin: Warm, no rash Results & Data Results & Data Vital Signs (Past 12 Hours) Vital Signs Temp Pulse Resp BP Pulse Ox O2 Del Method 10/22/23 13:34 36.8 C 108 H 18 144/76 H 93 Room Air 10/22/23 07:25 Room Air 10/22/23 07:24 36.8 C 108 H 18 144/69 H 93 Room Air (5) Sleep apnea Sleep apnea type: unspecified type Qualified Code(s): G47.30 - Sleep apnea, unspecified
[2023-10-22] MEDS: FAMOTIDINE 20 MG TAB PO SCH (21:16)
[2023-10-22] MEDS: CYCLOBENZAPRINE HCL 10 MG TAB PO SCH (21:16)
[2023-10-22] MEDS: LANTUS PER UNIT CHARGE SQ SCH (21:37)
[2023-10-23] MEDS: POLYETHYLENE (MIRALAX) 17 GM PACK PO SCH ×4 (04:12→21:39)
[2023-10-23] MEDS: oxyCODONE HCL IR 5 MG TAB (IMMEDIATE RELEASE) PO PRN (05:37)
[2023-10-23] MEDS: GABAPENTIN 100 MG CAP PO SCH ×2 (08:05→20:28)
[2023-10-23] MEDS: PANTOprazole 40 MG TAB PO SCH ×2 (08:06→20:29)
[2023-10-23] MEDS: METOPROLOL SUCC 50MG EXT REL TAB PO SCH ×2 (08:07→20:28)
[2023-10-23] MEDS: ATORVASTATIN 20 MG TAB PO SCH (08:07)
[2023-10-23] MEDS: hydroCHLOROthiazide 25 MG TAB PO SCH (08:08)
[2023-10-23] MEDS: DOCUSATE SODIUM/SENNA 50/8.6MG TAB PO SCH (08:08)
[2023-10-23] MEDS: LOSARTAN POTASSIUM 50 MG TAB PO SCH (08:08)
[2023-10-23] MEDS: SPIRONOLACTONE 25 MG TAB PO SCH (08:09)
[2023-10-23] MEDS: METOCLOPRAMIDE HCL 10 MG TABLET PO SCH ×3 (08:09→16:25)
[2023-10-23] MEDS: ASPIRIN 81 MG ECTAB PO SCH (08:09)
[2023-10-23] MEDS: FLUTICASONE/VILANTEROL 100/25MCG 14 PUFFS/INHALER INH SCH (08:10)
[2023-10-23] MEDS: LANTUS PER UNIT CHARGE SC SCH (08:17)
[2023-10-23] MEDS: INSULIN ASPART PER UNIT CHARGE SC SCH ×4 (08:17→21:40)
[2023-10-23] MEDS ORDERED: bisacodyL 5 MG TABEC PO ONE (13:59)
--- NOTE | 2023-10-23 13:59 | Hospitalist Progress Note ---
Date of Service October 23, 2023 Assessment & Plan (1) Charcot's joint arthropathy in type 2 diabetes mellitus: (2) Left ankle pain: (3) Osteonecrosis: (4) Acute pain of left lower extremity: (5) Sleep apnea: Plan Mr. Akhtar is a 47 yr male with H/O Type 2 diabetes, diabetic neuropathy, chronic respiratory failure with hypercapnia, obstructive sleep apnea, COPD, restrictive lung disease, hyperlipidemia, morbid obesity, gastroparesis, irritable bowel syndrome, GERD, history of DVT, cervical spinal stenosis, presents with left ankle pain going on for several months. Patient is now s/p Left Ankle Tibiotalocalcaneal Arthrodesis, Tendo Achilles Lengthening (Left) #Left ankle pain 2/2 Osteonecrosis s/p Left Ankle Tibiotalocalcaneal Arthrodesis, Tendo Achilles Lengthening (Left) --Ankle MRI:Findings suggestive of osteonecrosis of the talus with chronic mid- body fracture disrupting the articular surface. Secondary osteoarthritic changes of the tibiotalar joint. Moderate joint effusion with synovitis. Subtalar joint degeneration with degenerative marrow signal in the calcaneus. Chronic injury of the calcaneofibular ligament. Chronic injury of the deltoid ligament. Short segment split tear of the peroneus brevis tendon. Edema within the flexor hallucis longus muscle suggesting muscle strain. --Left LE CT:Chronic ununited intra-articular talar fracture with prominent subcortical cystic change suggestive of pseudoarticulation. There is chronic articular flattening of the talus with numerous intra-articular subcentimeter bone fragments/loose bodies. Mild midfoot and hindfoot osteoarthritis with spurring of the calcaneus. Moderate tibiotalar degeneration. Diffusely increased sclerosis of the talus suggestive of avascular necrosis. --Venous Doppler:No DVT within the left lower extremity. --LLE CTA: Normal CT angiogram of the left foot. The regional arteries are widely patent.2. There is unchanged appearance of a chronic nonunited intra- articular talar fracture as compared to the recent CT scan of the ankle.3. Ankle joint effusion with numerous small radiodense foreign bodies.4. Flattening of the talar dome with osteoarthritic change at the tibiotalar articulation. POD#3Left Ankle Tibiotalocalcaneal Arthrodesis, Tendo Achilles Lengthening by Dr. Camacho Last Bowel movement prior to OR, continue aggressive bowel regimen while on narcotics Continue pain control NWB LLE per Dr. Camacho for now, trial of a knee scooter per OT PT/OT eval - home with HH Dr. Camacho mentioned to patient possible dc Wednesday contingent on ability of patient to get scooter for home Check CBC in am for post op anemia #Obstructive sleep apnea on CPAP nightly Says currently his CPAP machine has been getting adjusted for settings. 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 #Hypertension Continue hydrochlorothiazide, losartan and metoprolol succinate and spironolactone monitor BP Morbid obesity BMI 39.8 DVT Px: lovenox Code Status Full code Admission and Anticipated Discharge Date Admission Date: October 15, 2023 Subjective Patient is status post day #3 (DOS: 10/20/23) Patient doing well however he notes that without a scooter he may not be able to go home as his right leg is not strong enough to support on a RW or with crutches Patient mentioned to PT who is looking into possibility of obtaining device Otherwise, discussed rehab possibility if unable to acquire for home Physical Exam Constitutional: WD/WN, vitals as above Respiratory: normal respiratory effort, lungs clear to auscultation Gastrointestinal (Abdomen): normal bowel sounds, soft, nontender, no hepatosplenomegaly Musculoskeletal: left foot with BLAKE and ice pack on, able to abduct and adduct left leg in bed without issue Results & Data Results & Data Vital Signs (Past 12 Hours) Vital Signs Temp Pulse Resp BP Pulse Ox O2 Del Method 10/23/23 11:41 36.9 C 100 H 17 138/73 97 Room Air 10/23/23 07:53 36.8 C 97 H 20 124/64 95 Room Air Medications Administered Home Medications Medication Instructions Recorded Confirmed Last Taken insulin aspart U-100 100 unit/mL 18 unit subcut TID 06/09/19 10/15/23 10/15/23 (3 mL) subcutaneous pen (Novolog FlexPen U-100 Insulin aspart) dicyclomine 10 mg capsule 10 mg PO QID PRN Diarrhea 05/01/20 10/15/23 04/14/23 famotidine 20 mg tablet 20 mg PO HS 07/13/20 10/15/23 10/14/23 docusate sodium 100 mg capsule 100 mg PO BID PRN Constipation 02/25/21 10/15/23 04/14/23 (Col-Rite) pantoprazole 40 mg tablet,delayed 40 mg PO BID 02/25/21 10/15/23 10/15/23 release metformin 500 mg tablet 1,000 mg PO BID 08/26/21 10/15/23 10/15/23 cyclobenzaprine 10 mg tablet 10 mg PO HS muscle spasms 09/06/22 10/15/23 10/14/23 gabapentin 100 mg capsule See Rx Instructions .Route .COMPLEX 09/06/22 10/15/23 10/15/23 insulin glargine 100 unit/mL (3 See Rx Instructions .Route .COMPLEX 09/06/22 10/15/23 10/15/23 mL) subcutaneous pen (Lantus Solostar U-100 Insulin) metoclopramide HCl 10 mg tablet 10 mg PO TID 09/06/22 10/15/23 10/15/23 budesonide-formoterol HFA 80 2 puff inhalation BID 02/08/23 10/15/23 10/15/23 mcg-4.5 mcg/actuation aerosol inhaler (Symbicort) tirzepatide 15 mg/0.5 mL 15 mg subcut WK 09/19/23 10/15/23 10/11/23 subcutaneous pen injector (Jake) aspirin 81 mg tablet,delayed 81 mg PO QAM #30 tabs 09/22/23 10/15/23 10/15/23 release atorvastatin 20 mg tablet 20 mg PO QAM #30 tabs 09/22/23 10/15/23 10/15/23 hydrochlorothiazide 25 mg tablet 25 mg PO QAM #30 tabs 09/22/23 10/15/23 10/15/23 losartan 100 mg tablet 100 mg PO DAILY #30 tabs 09/22/23 10/15/23 10/15/23 metoprolol succinate 100 mg 100 mg PO QAM #30 tabs 09/22/23 10/15/23 10/15/23 tablet,extended release 24 hr (Toprol XL) metoprolol succinate 50 mg 50 mg PO QPM #30 tabs 09/22/23 10/15/23 10/14/23 tablet,extended release 24 hr spironolactone 25 mg tablet 25 mg PO QAM #30 tabs 09/22/23 10/15/23 10/15/23 albuterol sulfate 90 mcg/actuation 3 inh inhalation Q6H PRN 10/15/23 10/15/23 Unknown aerosol inhaler WHEEZING/SOB ibuprofen 125 mg-acetaminophen 250 3 tab PO BID 10/15/23 10/15/23 10/15/23 mg tablet (Dual Action Pain Reliever) Active Medications Generic Name Dose Route Start Last Admin Trade Name Freq PRN Reason Stop Dose Admin Acetaminophen 650 mg 10/15/23 23:54 10/22/23 21:41 Acetaminophen 325 Mg Tab PO 11/14/23 23:53 650 mg Q4H PRN Administration pain/fever Aspirin 81 mg 10/16/23 09:00 10/23/23 08:09 Aspirin 81 Mg Ectab PO 11/15/23 08:59 81 mg QAM SOPHIA Administration Atorvastatin Calcium 20 mg 10/16/23 09:00 10/23/23 08:07 Atorvastatin 20 Mg Tab PO 11/15/23 08:59 20 mg QAM SOPHIA Administration Cyclobenzaprine HCl 10 mg 10/16/23 21:00 10/22/23 21:16 Cyclobenzaprine Hcl 10 Mg Tab PO 11/15/23 20:59 10 mg HS SOPHIA Administration Dicyclomine HCl 10 mg 10/15/23 23:54 10/19/23 09:00 Dicyclomine Hcl 10 Mg Cap PO 11/14/23 23:53 10 mg QID PRN Administration Diarrhea Enoxaparin Sodium 40 mg 10/16/23 06:00 10/19/23 05:38 Enoxaparin Inj 40 Mg/0.4 Ml Syr SQ 11/15/23 05:59 40 mg Q24H SOPHIA Administration Famotidine 20 mg 10/16/23 21:00 10/22/23 21:16 Famotidine 20 Mg Tab PO 11/15/23 20:59 20 mg HS SOPHIA Administration Fluticasone/Vilanterol 1 puffs 10/16/23 09:00 10/23/23 08:10 Fluticasone/Vilanterol 100/25mcg 14 Puffs/Inhaler INH 11/15/23 08:59 1 puffs DAILY SOPHIA Administration Gabapentin 100 mg 10/16/23 09:00 10/23/23 08:05 Gabapentin 100 Mg Cap PO 11/15/23 08:59 100 mg QAM SOPHIA Administration Gabapentin 200 mg 10/16/23 21:00 10/22/23 21:16 Gabapentin 100 Mg Cap PO 11/15/23 20:59 200 mg HS SOPHIA Administration Hydrochlorothiazide 25 mg 10/16/23 09:00 10/23/23 08:08 Hydrochlorothiazide 25 Mg Tab PO 11/15/23 08:59 25 mg QAM SOPHIA Administration Insulin Aspart 0 units 10/20/23 21:00 10/23/23 12:04 Insulin Aspart Per Unit Charge SC 11/19/23 20:59 14 units ACHS SOPHIA Administration Insulin Glargine 30 units 10/16/23 09:00 10/23/23 08:17 Lantus Per Unit Charge SC 11/15/23 08:59 30 units QAM SOPHIA Administration Insulin Glargine 40 units 10/16/23 00:15 10/22/23 21:37 Lantus Per Unit Charge SQ 11/15/23 00:14 40 units HS SOPHIA Administration Losartan Potassium 100 mg 10/16/23 09:00 10/23/23 08:08 Losartan Potassium 50 Mg Tab PO 11/15/23 08:59 100 mg DAILY SOPHIA Administration Metoclopramide HCl 10 mg 10/16/23 07:30 10/23/23 12:01 Metoclopramide Hcl 10 Mg Tablet PO 11/15/23 07:29 10 mg AC SOPHIA Administration Metoprolol Succinate 100 mg 10/16/23 09:00 10/23/23 08:07 Metoprolol Succ 50mg Ext Rel Tab PO 11/15/23 08:59 100 mg QAM SOPHIA Administration Metoprolol Succinate 50 mg 10/16/23 21:00 10/22/23 21:16 Metoprolol Succ 50mg Ext Rel Tab PO 11/15/23 20:59 50 mg QPM SOPHIA Administration Oxycodone HCl 5 - 10 mg 10/21/23 16:59 10/23/23 05:37 Oxycodone Hcl Ir 5 Mg Tab (Immediate Release) PO 10/29/23 23:53 10 mg Q6H PRN Administration Mod-Sev Pain (Scale 4-10) Pantoprazole Sodium 40 mg 10/16/23 09:00 10/23/23 08:06 Pantoprazole 40 Mg Tab PO 11/15/23 08:59 40 mg BID SOPHIA Administration Polyethylene Glycol 17 gm 10/20/23 22:00 10/23/23 11:32 Polyethylene (Miralax) 17 Gm Pack PO 11/19/23 21:59 17 gm Q6H SOPHIA Administration Senna/Docusate Sodium 1 tab 10/19/23 10:15 10/23/23 08:08 Docusate Sodium/Senna 50/8.6mg Tab PO 11/18/23 10:14 1 tab QAM SOPHIA Administration Spironolactone 25 mg 10/16/23 09:00 10/23/23 08:09 Spironolactone 25 Mg Tab PO 11/15/23 08:59 25 mg QAM SOPHIA Administration (5) Sleep apnea Sleep apnea type: unspecified type Qualified Code(s): G47.30 - Sleep apnea, unspecified
[2023-10-23] MEDS: ACETAMINOPHEN 325 MG TAB PO PRN ×2 (16:31→20:30)
[2023-10-23] MEDS: CYCLOBENZAPRINE HCL 10 MG TAB PO SCH (20:28)
[2023-10-23] MEDS: FAMOTIDINE 20 MG TAB PO SCH (20:28)
[2023-10-23] MEDS: LANTUS PER UNIT CHARGE SQ SCH (21:39)
[2023-10-24] MEDS: ACETAMINOPHEN 325 MG TAB PO PRN ×2 (05:55→15:05)
[2023-10-24] MEDS: POLYETHYLENE (MIRALAX) 17 GM PACK PO SCH ×4 (05:56→21:26)
[2023-10-24] MEDS: ENOXAPARIN INJ 40 MG/0.4 ML SYR SQ SCH (06:15)
[2023-10-24 07:13] LABS: Hematocrit (blood only) 36.5 % (42.0-52.0); Hemoglobin 11.9 g/dl (14.0-18.0); Mean Corpuscular Hemoglobin 26.9 pg (25.0-34.0); Mean Corpuscular Hgb Conc 32.6 g/dL (32.0-36.0); Mean Corpuscular Volume 82.6 fL (80.0-100.0); Mean Platelet Volume 9.9 fL (9.4-12.4); Platelet Count 248 K/uL (130-400); RDW Coefficient of Variation 13.5 % (11.5-14.5); RDW Standard Deviation 40.7 fL (36.4-46.3); Red Blood Count 4.42 M/uL (4.70-6.10); White Blood Count 10.49 K/ul (4.8-10.8)
[2023-10-24 07:23] LABS: Calcium 9.3 mg/dl (8.6-10.3); Creatinine Clr Calc Pharmacy 163.3 ml/min; Est GFR (African American) 119.2 ml/min; Est GFR (Non-African American) 102.8 ml/min; Magnesium 1.8 mg/dl (1.7-2.4); Phosphorus 3.5 mg/dl (2.5-4.9); Potassium 4.8 mmol/L (3.5-5.1)
[2023-10-24] MEDS ORDERED: PHARMACY GLYCEMIC MGMT CONSULT PRN (08:00)
[2023-10-24] MEDS: METOCLOPRAMIDE HCL 10 MG TABLET PO SCH ×3 (08:47→17:11)
[2023-10-24] MEDS: INSULIN ASPART PER UNIT CHARGE SC SCH ×4 (08:52→22:15)
[2023-10-24] MEDS: LANTUS PER UNIT CHARGE SC SCH (08:53)
[2023-10-24] MEDS: ASPIRIN 81 MG ECTAB PO SCH (09:10)
[2023-10-24] MEDS: hydroCHLOROthiazide 25 MG TAB PO SCH (09:10)
[2023-10-24] MEDS: DOCUSATE SODIUM/SENNA 50/8.6MG TAB PO SCH (09:11)
[2023-10-24] MEDS: LOSARTAN POTASSIUM 50 MG TAB PO SCH (09:11)
[2023-10-24] MEDS: PANTOprazole 40 MG TAB PO SCH ×2 (09:12→21:26)
[2023-10-24] MEDS: ATORVASTATIN 20 MG TAB PO SCH (09:12)
[2023-10-24] MEDS: GABAPENTIN 100 MG CAP PO SCH ×2 (09:12→21:26)
[2023-10-24] MEDS: METOPROLOL SUCC 50MG EXT REL TAB PO SCH ×2 (09:12→21:25)
[2023-10-24] MEDS: FLUTICASONE/VILANTEROL 100/25MCG 14 PUFFS/INHALER INH SCH (09:13)
[2023-10-24] MEDS: SPIRONOLACTONE 25 MG TAB PO SCH (09:13)
--- NOTE | 2023-10-24 15:36 | Pharmacy Report ---
Pharmacy Glycemic Short Note 2 - Date of Service October 24, 2023 - Glycemic Short BSG Results (Last 24 hours): 10/23/23 10/23/23 10/24/23 16:52 20:38 06:27 Glucose 215 H POC Glucose 220 H 237 H 10/24/23 10/24/23 07:44 11:49 Glucose POC Glucose 260 H 263 H OUTPATIENT ANTIDIABETIC REGIMEN: * Novolog 18 units SC TID * Lantus 30 units SC QAM, 40 units SC HS * Metformin 1gm PO BID * Mounjaro 15 mg SC weekly HbA1c: 8.8% on 10/16/23 ASSESSMENT: * 47 y/o M admitted on 10/15/23 with joint pain/osteonecrosis. He has history of Type 2 diabetes with morbid obesity managed on basal & bolus insulins, Metformin and Mounjaro SC at home. * Patient was started on his home dosing of Lantus since admission and bolus Novolog ACHS but BSGs have been above 200 mg/dl. * Pharmacy consulted for glycemic management today. Fasting BSG = 215 mg/dl. Basal dose at HS increased to 50 units. * Novolog parameters tightened to stress of 2 with breakfast. PLAN FOR INPATIENT GLYCEMIC CONTROL: * Hold outpatient diabetes medications * Basal insulin * Lantus 30 units SQ QAM * Lantus 50 units SQ HS * Bolus insulin * NovoLog per scale ACHS or Q6hrs while NPO * Goal Range: Low 110 mg/dL - High 140 mg/dL * Correction Factor: 15 mg/dL/unit * Nutritional / Prandial insulin per carb ratio of 1 unit per 5 grams CHO consumed
--- NOTE | 2023-10-24 15:48 | Hospitalist Progress Note ---
Date of Service October 24, 2023 Assessment & Plan (1) Charcot's joint arthropathy in type 2 diabetes mellitus: (2) Left ankle pain: (3) Osteonecrosis: (4) Acute pain of left lower extremity: (5) Sleep apnea: Plan Mr. Akhtar is a 47 yr male with H/O Type 2 diabetes, diabetic neuropathy, chronic respiratory failure with hypercapnia, obstructive sleep apnea, COPD, restrictive lung disease, hyperlipidemia, morbid obesity, gastroparesis, irritable bowel syndrome, GERD, history of DVT, cervical spinal stenosis, presents with left ankle pain going on for several months. Patient is now s/p Left Ankle Tibiotalocalcaneal Arthrodesis, Tendo Achilles Lengthening (Left) #Left ankle pain 2/2 Osteonecrosis s/p Left Ankle Tibiotalocalcaneal Arthrodesis, Tendo Achilles Lengthening (Left) --Ankle MRI:Findings suggestive of osteonecrosis of the talus with chronic mid- body fracture disrupting the articular surface. Secondary osteoarthritic changes of the tibiotalar joint. Moderate joint effusion with synovitis. Subtalar joint degeneration with degenerative marrow signal in the calcaneus. Chronic injury of the calcaneofibular ligament. Chronic injury of the deltoid ligament. Short segment split tear of the peroneus brevis tendon. Edema within the flexor hallucis longus muscle suggesting muscle strain. --Left LE CT:Chronic ununited intra-articular talar fracture with prominent subcortical cystic change suggestive of pseudoarticulation. There is chronic articular flattening of the talus with numerous intra-articular subcentimeter bone fragments/loose bodies. Mild midfoot and hindfoot osteoarthritis with spurring of the calcaneus. Moderate tibiotalar degeneration. Diffusely increased sclerosis of the talus suggestive of avascular necrosis. --Venous Doppler:No DVT within the left lower extremity. --LLE CTA: Normal CT angiogram of the left foot. The regional arteries are widely patent.2. There is unchanged appearance of a chronic nonunited intra- articular talar fracture as compared to the recent CT scan of the ankle.3. Ankle joint effusion with numerous small radiodense foreign bodies.4. Flattening of the talar dome with osteoarthritic change at the tibiotalar articulation. POD#3Left Ankle Tibiotalocalcaneal Arthrodesis, Tendo Achilles Lengthening by Dr. Camacho Last Bowel movement prior to OR, continue aggressive bowel regimen while on narcotics Continue pain control NWB LLE per Dr. Camacho for now, trial of a knee scooter per OT PT/OT eval - home with HH Dr. Camacho mentioned to patient possible dc Wednesday contingent on ability of patient to get scooter for home #Acute on chronic anemia secondary to blood loss from post-op Baseline roughly 13, post op 11.9-12.5 Stable, no acute signs of bleeding, CTM #Obstructive sleep apnea on CPAP nightly Says currently his CPAP machine has been getting adjusted for settings. Currently not using CPAP #COPD #Restrictive lung disease Chronic respiratory hypercapnia Continue home inhalers Will monitor #DM II HbA1c 8.8, 10/16/23 Continue home long-acting insulin continue Insulin while hospitalized Monitor BGs, stable Requesting fire patrol, consulted #Hypertension Continue hydrochlorothiazide, losartan and metoprolol succinate and spironolactone monitor BP Morbid obesity BMI 39.8 DVT Px: lovenox Code Status Full code Admission and Anticipated Discharge Date Admission Date: October 15, 2023 Subjective Patient is status post day #4 (DOS: 10/20/23) Patient doing well however he notes that without a scooter he may not be able to go home as his right leg is not strong enough to support on a RW or with crutches Patient states that his girlfriend will cover the cost of the scooter and does not want rehab Endorsed large BM this morning Physical Exam Constitutional: WD/WN, vitals as above Respiratory: normal respiratory effort, lungs clear to auscultation Cardiovascular: RRR, no murmur, no edema Gastrointestinal (Abdomen): normal bowel sounds, soft, nontender, no hepatosplenomegaly Results & Data Results & Data Vital Signs (Past 12 Hours) Vital Signs Temp Pulse Pulse Resp BP BP Pulse Ox 10/24/23 14:40 37.4 C 101 H 16 137/84 93 10/24/23 09:08 98 H 143/81 H 96 10/24/23 08:29 36.6 C 97 H 16 129/77 93 O2 Del Method 10/24/23 14:40 Room Air 10/24/23 09:08 Room Air 10/24/23 08:29 Room Air Laboratory Results Short CBC 10/24/23 Range/Units 06:27 WBC 10.49 (4.8-10.8) K/ul Hgb 11.9 L (14.0-18.0) g/dl Hct 36.5 L (42.0-52.0) % Plt Count 248 (130-400) K/uL BMP 10/24/23 06:27 Sodium 134 L Potassium 4.8 Chloride 100 Carbon Dioxide 26 BUN 26 H Creatinine 0.84 Glucose 215 H Calcium 9.3 Medications Administered Home Medications Medication Instructions Recorded Confirmed Last Taken insulin aspart U-100 100 unit/mL 18 unit subcut TID 06/09/19 10/15/23 10/15/23 (3 mL) subcutaneous pen (Novolog FlexPen U-100 Insulin aspart) dicyclomine 10 mg capsule 10 mg PO QID PRN Diarrhea 05/01/20 10/15/23 04/14/23 famotidine 20 mg tablet 20 mg PO HS 07/13/20 10/15/23 10/14/23 docusate sodium 100 mg capsule 100 mg PO BID PRN Constipation 02/25/21 10/15/23 04/14/23 (Col-Rite) pantoprazole 40 mg tablet,delayed 40 mg PO BID 02/25/21 10/15/23 10/15/23 release metformin 500 mg tablet 1,000 mg PO BID 08/26/21 10/15/23 10/15/23 cyclobenzaprine 10 mg tablet 10 mg PO HS muscle spasms 09/06/22 10/15/23 10/14/23 gabapentin 100 mg capsule See Rx Instructions .Route .COMPLEX 09/06/22 10/15/23 10/15/23 insulin glargine 100 unit/mL (3 See Rx Instructions .Route .COMPLEX 09/06/22 10/15/23 10/15/23 mL) subcutaneous pen (Lantus Solostar U-100 Insulin) metoclopramide HCl 10 mg tablet 10 mg PO TID 09/06/22 10/15/23 10/15/23 budesonide-formoterol HFA 80 2 puff inhalation BID 02/08/23 10/15/23 10/15/23 mcg-4.5 mcg/actuation aerosol inhaler (Symbicort) tirzepatide 15 mg/0.5 mL 15 mg subcut WK 09/19/23 10/15/23 10/11/23 subcutaneous pen injector (Jake) aspirin 81 mg tablet,delayed 81 mg PO QAM #30 tabs 09/22/23 10/15/23 10/15/23 release atorvastatin 20 mg tablet 20 mg PO QAM #30 tabs 09/22/23 10/15/23 10/15/23 hydrochlorothiazide 25 mg tablet 25 mg PO QAM #30 tabs 09/22/23 10/15/23 10/15/23 losartan 100 mg tablet 100 mg PO DAILY #30 tabs 09/22/23 10/15/23 10/15/23 metoprolol succinate 100 mg 100 mg PO QAM #30 tabs 09/22/23 10/15/23 10/15/23 tablet,extended release 24 hr (Toprol XL) metoprolol succinate 50 mg 50 mg PO QPM #30 tabs 09/22/23 10/15/23 10/14/23 tablet,extended release 24 hr spironolactone 25 mg tablet 25 mg PO QAM #30 tabs 09/22/23 10/15/23 10/15/23 albuterol sulfate 90 mcg/actuation 3 inh inhalation Q6H PRN 10/15/23 10/15/23 Unknown aerosol inhaler WHEEZING/SOB ibuprofen 125 mg-acetaminophen 250 3 tab PO BID 10/15/23 10/15/23 10/15/23 mg tablet (Dual Action Pain Reliever) Active Medications Generic Name Dose Route Start Last Admin Trade Name Freq PRN Reason Stop Dose Admin Acetaminophen 650 mg 10/15/23 23:54 10/24/23 15:05 Acetaminophen 325 Mg Tab PO 11/14/23 23:53 650 mg Q4H PRN Administration pain/fever Aspirin 81 mg 10/16/23 09:00 10/24/23 09:10 Aspirin 81 Mg Ectab PO 11/15/23 08:59 81 mg QAM SOPHIA Administration Atorvastatin Calcium 20 mg 10/16/23 09:00 10/24/23 09:12 Atorvastatin 20 Mg Tab PO 11/15/23 08:59 20 mg QAM SOPHIA Administration Cyclobenzaprine HCl 10 mg 10/16/23 21:00 10/23/23 20:28 Cyclobenzaprine Hcl 10 Mg Tab PO 11/15/23 20:59 10 mg HS SOPHIA Administration Dicyclomine HCl 10 mg 10/15/23 23:54 10/19/23 09:00 Dicyclomine Hcl 10 Mg Cap PO 11/14/23 23:53 10 mg QID PRN Administration Diarrhea Enoxaparin Sodium 40 mg 10/16/23 06:00 10/24/23 06:15 Enoxaparin Inj 40 Mg/0.4 Ml Syr SQ 11/15/23 05:59 40 mg Q24H SOPHIA Administration Famotidine 20 mg 10/16/23 21:00 10/23/23 20:28 Famotidine 20 Mg Tab PO 11/15/23 20:59 20 mg HS SOPHIA Administration Fluticasone/Vilanterol 1 puffs 10/16/23 09:00 10/24/23 09:13 Fluticasone/Vilanterol 100/25mcg 14 Puffs/Inhaler INH 11/15/23 08:59 1 puffs DAILY SOPHIA Administration Gabapentin 100 mg 10/16/23 09:00 10/24/23 09:12 Gabapentin 100 Mg Cap PO 11/15/23 08:59 100 mg QAM SOPHIA Administration Gabapentin 200 mg 10/16/23 21:00 10/23/23 20:28 Gabapentin 100 Mg Cap PO 11/15/23 20:59 200 mg HS SOPHIA Administration Hydrochlorothiazide 25 mg 10/16/23 09:00 10/24/23 09:10 Hydrochlorothiazide 25 Mg Tab PO 11/15/23 08:59 25 mg QAM SOPHIA Administration Insulin Aspart 0 units 10/20/23 21:00 10/24/23 12:08 Insulin Aspart Per Unit Charge SC 11/19/23 20:59 22 units ACHS SOPHIA Administration Insulin Glargine 30 units 10/16/23 09:00 10/24/23 08:53 Lantus Per Unit Charge SC 11/15/23 08:59 30 units QAM SOPHIA Administration Losartan Potassium 100 mg 10/16/23 09:00 10/24/23 09:11 Losartan Potassium 50 Mg Tab PO 11/15/23 08:59 100 mg DAILY SOPHIA Administration Metoclopramide HCl 10 mg 10/16/23 07:30 10/24/23 12:04 Metoclopramide Hcl 10 Mg Tablet PO 11/15/23 07:29 10 mg AC SOPHIA Administration Metoprolol Succinate 100 mg 10/16/23 09:00 10/24/23 09:12 Metoprolol Succ 50mg Ext Rel Tab PO 11/15/23 08:59 100 mg QAM SOPHIA Administration Metoprolol Succinate 50 mg 10/16/23 21:00 10/23/23 20:28 Metoprolol Succ 50mg Ext Rel Tab PO 11/15/23 20:59 50 mg QPM SOPHIA Administration Oxycodone HCl 5 - 10 mg 10/21/23 16:59 10/23/23 05:37 Oxycodone Hcl Ir 5 Mg Tab (Immediate Release) PO 10/29/23 23:53 10 mg Q6H PRN Administration Mod-Sev Pain (Scale 4-10) Pantoprazole Sodium 40 mg 10/16/23 09:00 10/24/23 09:12 Pantoprazole 40 Mg Tab PO 11/15/23 08:59 40 mg BID SOPHIA Administration Polyethylene Glycol 17 gm 10/20/23 22:00 10/24/23 15:05 Polyethylene (Miralax) 17 Gm Pack PO 11/19/23 21:59 Not Given Q6H SOPHIA Senna/Docusate Sodium 1 tab 10/19/23 10:15 10/24/23 09:11 Docusate Sodium/Senna 50/8.6mg Tab PO 11/18/23 10:14 1 tab QAM SOPHIA Administration Spironolactone 25 mg 10/16/23 09:00 10/24/23 09:13 Spironolactone 25 Mg Tab PO 11/15/23 08:59 25 mg QAM SOPHIA Administration (5) Sleep apnea Sleep apnea type: unspecified type Qualified Code(s): G47.30 - Sleep apnea, unspecified
[2023-10-24] MEDS: oxyCODONE HCL IR 5 MG TAB (IMMEDIATE RELEASE) PO PRN (19:22)
[2023-10-24] MEDS ORDERED: LANTUS PER UNIT CHARGE SQ SCH (21:00)
[2023-10-24] MEDS: FAMOTIDINE 20 MG TAB PO SCH (21:26)
[2023-10-24] MEDS: CYCLOBENZAPRINE HCL 10 MG TAB PO SCH (21:26)
[2023-10-25] MEDS: POLYETHYLENE (MIRALAX) 17 GM PACK PO SCH ×2 (05:43→09:00)
[2023-10-25] MEDS: oxyCODONE HCL IR 5 MG TAB (IMMEDIATE RELEASE) PO PRN (05:43)
[2023-10-25] MEDS: ENOXAPARIN INJ 40 MG/0.4 ML SYR SQ SCH (05:43)
[2023-10-25] MEDS: INSULIN ASPART PER UNIT CHARGE SC SCH ×2 (08:51→12:30)
[2023-10-25] MEDS: PANTOprazole 40 MG TAB PO SCH (08:52)
[2023-10-25] MEDS: ASPIRIN 81 MG ECTAB PO SCH (08:52)
[2023-10-25] MEDS: SPIRONOLACTONE 25 MG TAB PO SCH (08:52)
[2023-10-25] MEDS: LOSARTAN POTASSIUM 50 MG TAB PO SCH (08:53)
[2023-10-25] MEDS: DOCUSATE SODIUM/SENNA 50/8.6MG TAB PO SCH (08:53)
[2023-10-25] MEDS: ATORVASTATIN 20 MG TAB PO SCH (08:53)
[2023-10-25] MEDS: METOPROLOL SUCC 50MG EXT REL TAB PO SCH (08:53)
[2023-10-25] MEDS: METOCLOPRAMIDE HCL 10 MG TABLET PO SCH ×2 (08:53→12:31)
[2023-10-25] MEDS: GABAPENTIN 100 MG CAP PO SCH (08:53)
[2023-10-25] MEDS: hydroCHLOROthiazide 25 MG TAB PO SCH (08:53)
[2023-10-25] MEDS: FLUTICASONE/VILANTEROL 100/25MCG 14 PUFFS/INHALER INH SCH (08:54)
[2023-10-25] MEDS: ACETAMINOPHEN 325 MG TAB PO PRN (08:54)
[2023-10-25] MEDS ORDERED: LANTUS PER UNIT CHARGE SC SCH (09:00)
--- NOTE | 2023-10-25 13:03 | Pharmacy Report ---
Pharmacy Glycemic Short Note 2 - Date of Service October 25, 2023 - Glycemic Short BSG Results (Last 24 hours): 10/24/23 10/24/23 10/25/23 16:53 21:01 07:45 POC Glucose 209 H 203 H 229 H 10/25/23 11:24 POC Glucose 274 H OUTPATIENT ANTIDIABETIC REGIMEN: * Novolog 18 units SC TID * Lantus 30 units SC QAM, 40 units SC HS * Metformin 1gm PO BID * Mounjaro 15 mg SC weekly HbA1c: 8.8% on 10/16/23 ASSESSMENT: 10/25 * BSGs remain elevated in the 200s- Fasting this AM 229 mg/dL- continue to titrate basal insulin * Patient received 160 units of insulin yesterday- 80 units of basal, 80 units of correctional/prandial coverage * Carb ratio tightened this morning, lunch BSG still elevated but breakfast admin @ 0851~ will monitor rest of day and make further adjustments based on trend tomorrow 10/24 * 47 y/o M admitted on 10/15/23 with joint pain/osteonecrosis. He has history of Type 2 diabetes with morbid obesity managed on basal & bolus insulins, Metform in and Mounjaro SC at home. * Patient was started on his home dosing of Lantus since admission and bolus Novolog ACHS but BSGs have been above 200 mg/dl. * Pharmacy consulted for glycemic management today. Fasting BSG = 215 mg/dl. Basal dose at HS increased to 50 units. * Novolog parameters tightened to stress of 2 with breakfast. PLAN FOR INPATIENT GLYCEMIC CONTROL: * Hold outpatient diabetes medications * Basal insulin * Lantus 40 units SQ QAM * Lantus 50 units SQ HS * Bolus insulin * NovoLog per scale ACHS or Q6hrs while NPO * Goal Range: Low 110 mg/dL - High 140 mg/dL * Correction Factor: 15 mg/dL/unit * Nutritional / Prandial insulin per carb ratio of 1 unit per 4 grams CHO consumed
--- NOTE | 2023-10-25 15:58 | Hospitalist Progress Note ---
Date of Service October 25, 2023 Assessment & Plan (1) Charcot's joint arthropathy in type 2 diabetes mellitus: (2) Left ankle pain: (3) Osteonecrosis: (4) Acute pain of left lower extremity: (5) Sleep apnea: Plan Mr. Akhtar is a 47 yr male with H/O Type 2 diabetes, diabetic neuropathy, chronic respiratory failure with hypercapnia, obstructive sleep apnea, COPD, restrictive lung disease, hyperlipidemia, morbid obesity, gastroparesis, irritable bowel syndrome, GERD, history of DVT, cervical spinal stenosis, presents with left ankle pain going on for several months. Patient is now s/p Left Ankle Tibiotalocalcaneal Arthrodesis, Tendo Achilles Lengthening (Left) Left ankle pain 2/2 Osteonecrosis s/p Left Ankle Tibiotalocalcaneal Arthrodesis, Tendo Achilles Lengthening (Left) --Ankle MRI:Findings suggestive of osteonecrosis of the talus with chronic mid-b itzel fracture disrupting the articular surface. Secondary osteoarthritic changes of the tibiotalar joint. Moderate joint effusion with synovitis. Subtalar joint degeneration with degenerative marrow signal in the calcaneus. Chronic injury of the calcaneofibular ligament. Chronic injury of the deltoid ligament. Short segment split tear of the peroneus brevis tendon. Edema within the flexor halluc is longus muscle suggesting muscle strain. --Left LE CT:Chronic ununited intra-articular talar fracture with prominent subcortical cystic change suggestive of pseudoarticulation. There is chronic articular flattening of the talus with numerous intra-articular subcentimeter bone fragments/loose bodies. Mild midfoot and hindfoot osteoarthritis with spurring of the calcaneus. Moderate tibiotalar degeneration. Diffusely increased sclerosis of the talus suggestive of avascular necrosis. --Venous Doppler:No DVT within the left lower extremity. --LLE CTA: Normal CT angiogram of the left foot. The regional arteries are widely patent.2. There is unchanged appearance of a chronic nonunited intra- articular talar fracture as compared to the recent CT scan of the ankle.3. Ankle joint effusion with numerous small radiodense foreign bodies.4. Flattening of the talar dome with osteoarthritic change at the tibiotalar articulation. S/P Left Ankle Tibiotalocalcaneal Arthrodesis, Tendo Achilles Lengthening by Dr. Camacho on October 20, 2023 continue bowel regimen while on narcotics to prevent constipation Continue pain control NWB LLE per Dr. Camacho for now, trial of a knee scooter per OT PT/OT eval - home with HH Patient refused rehab placement Plan to discharge home today Advised to follow-up with Dr. Camacho on discharge Acute on chronic anemia secondary to blood loss from post-op Baseline roughly 13 Hb 11.9 today Monitor Obstructive sleep apnea on CPAP nightly Says currently his CPAP machine has been getting adjusted for settings. Currently not using CPAP COPD Restrictive lung disease Chronic respiratory hypercapnia Continue home inhalers monitor DM II HbA1c 8.8, 10/16/23 Continue home long-acting insulin continue Insulin while hospitalized Monitor BGs, stable Requesting family life educator, consulted Hypertension Continue hydrochlorothiazide, losartan and metoprolol succinate and spironolactone monitor BP Morbid obesity BMI 39.8 DVT Px: Lovenox SQ Code Status Full code Disposition Refused rehab placement Plan to discharge home with home health Admission and Anticipated Discharge Date Admission Date: October 15, 2023 Subjective Patient is seen and examined at bedside States having intermittent left ankle pain at surgical site Otherwise no complaints Denies any chest pain, dyspnea, dizziness, nausea, vomiting, abdominal pain Refuses rehab placement Review of Systems Review of Systems: All systems reviewed & are unremarkable except as noted in Subjective Physical Exam Physical Exam: Physical Exam: Vitals signs as noted above General Appearance:Morbidly Obese, no apparent distress Head: normocephalic, Atraumatic Eyes: normal inspection, EOMI Neck: supple, Trachea midline Respiratory/Chest: Normal breath sounds, CTA, No accessory muscle use Cardiovascular: S1, S2, No murmur Abdomen/GI:Soft, Non tender, Bowel sounds present Extremities/Musculoskeletal:normal inspection, no edema, Left Ankle in surgical dressing Neurologic/Psych:AAOX3, grossly no focal neurological deficits Skin: normal color, warm Results & Data Results & Data Vital Signs (Past 12 Hours) Vital Signs Temp Pulse Resp BP Pulse Ox O2 Del Method 10/25/23 15:10 36.7 C 94 H 17 108/62 92 Room Air 10/25/23 08:00 Room Air 10/25/23 07:45 36.9 C 102 H 18 137/84 94 Room Air (5) Sleep apnea Sleep apnea type: unspecified type Qualified Code(s): G47.30 - Sleep apnea, unspecified
--- NOTE | 2023-10-25 16:15 | Discharge Summary ---
Date of Service October 25, 2023 Admission HPI Per Admitting Provider 47-year-old male with past medical history significant for type 2 diabetes, diabetic neuropathy, chronic respiratory failure with hypercapnia, obstructive sleep apnea, COPD, restrictive lung disease, hyperlipidemia, morbid obesity, gastroparesis, irritable bowel syndrome, GERD, history of DVT, cervical spinal stenosis, presents with left ankle pain going on for several months. Patient states saw PCP and advised for x-ray but he did not get it so far. Sometimes pain is severe that he cannot put weight on the leg. Currently pain is about 8 /10 in severity. Denies any injuries. No fevers. Currently resting comfortably and hemodynamically stable. Denies any headache. No runny nose or sore throat. No cough. No chest pain or shortness of breath. No nausea vomiting. No abdominal pain. Normal bladder movements. Bowels alternate with constipation and diarrhea. Past medical history. As mentioned above Past surgical history. Right shoulder arthroscopy. Colonoscopy. EGD. Injection of lumbosacral spine. Knee arthroscopy. Tonsillectomy. Social history. . Smokes 1.5 pack. Day for 33 years. Alcohol rarely. No drugs currently . Family history. Sister has arthritis. Father has COPD, hypertension. Mother has diabetes. Dyslipidemia. Hypertension. Maternal grandmother had diabetes. Paternal grandmother had diabetes. Uncle had diabetes. Admission Exam Per Admitting Provider General- Not n distress Head- atraumatic Eyes- PERRL. ENT- oropharynx clear Neck- supple, no JVD. Lungs- clear to auscultation no wheezing or crackles. Heart- regular rhythm; no murmur, no gallop. Abdomen- normal bowel sounds, soft, nontender, no distension. Extremities- left ankle medial side mild edema and tender to palpation. Neuro- alert, oriented x 3; PERRL, no facial palsy; no dysarthria; moves extremities. Skin- warm & dry Principal Diagnosis Osteonecrosis s/p Left Ankle Tibiotalocalcaneal Arthrodesis, Tendo Achilles Lengthening Postoperative blood loss anemia Discharge Data Allergies Allergy/AdvReac Type Severity Reaction Status Date / Time cefaclor [From Ceclor] Allergy Unknown childhood Verified 10/15/23 19:03 allergy ? Cephalosporins Allergy Unknown Unknown Verified 10/15/23 19:03 empagliflozin AdvReac Unknown put me Verified 10/15/23 19:03 [From Jardiance] into ketoacidosis? NSAIDS (Non-Steroidal AdvReac Unknown use with Verified 10/15/23 19:03 Anti-Inflamma caution : hx esophagus damage Consultations 10/15/23 20:49 ED Decision to Admit Stat 10/16/23 08:00 Consult Podiatry Routine Procedures Performed Operation Date: 10/20/23 13:30 Actual Procedures p Left Ankle Tibiotalocalcaneal Arthrodesis, (Left) - Glenn Camacho DPM, MS s Tendo Achilles Lengthening (Left) - Glenn Camacho DPM, MS Laboratory Results WBC 10.49 K/ul (4.8-10.8) 10/24/23 06:27 RBC 4.42 M/uL (4.70-6.10) L 10/24/23 06:27 Hgb 11.9 g/dl (14.0-18.0) L 10/24/23 06:27 Hct 36.5 % (42.0-52.0) L 10/24/23 06:27 MCV 82.6 fL (80.0-100.0) 10/24/23 06:27 MCH 26.9 pg (25.0-34.0) 10/24/23 06:27 MCHC 32.6 g/dL (32.0-36.0) 10/24/23 06:27 RDW Std Deviation 40.7 fL (36.4-46.3) 10/24/23 06:27 RDW Coeff of Abiodun 13.5 % (11.5-14.5) 10/24/23 06:27 Plt Count 248 K/uL (130-400) 10/24/23 06:27 MPV 9.9 fL (9.4-12.4) 10/24/23 06:27 Immature Gran % (Auto) 1.5 % 10/16/23 07:59 Neut % (Auto) 53.6 % 10/16/23 07:59 Lymph % (Auto) 28.9 % 10/16/23 07:59 Barton % (Auto) 10.2 % 10/16/23 07:59 Eos % (Auto) 4.9 % 10/16/23 07:59 Baso % (Auto) 0.9 % 10/16/23 07:59 Neut # (Auto) 5.37 K/uL (1.40-6.50) 10/16/23 07:59 Lymph # (Auto) 2.89 K/uL (1.20-3.40) 10/16/23 07:59 Barton # (Auto) 1.02 K/uL (0.11-0.59) H 10/16/23 07:59 Eos # (Auto) 0.49 K/uL (0.00-0.50) 10/16/23 07:59 Baso # (Auto) 0.09 K/uL (0.00-0.20) 10/16/23 07:59 Immature Gran # (Auto) 0.15 K/uL (0.01-0.20) 10/16/23 07:59 Sodium 134 mmol/L (136-145) L 10/24/23 06:27 Potassium 4.8 mmol/L (3.5-5.1) 10/24/23 06:27 Chloride 100 mmol/L (98-107) 10/24/23 06:27 Carbon Dioxide 26 mmol/L (21-32) 10/24/23 06:27 Anion Gap 8 (3-11) 10/24/23 06:27 BUN 26 mg/dl (6-23) H 10/24/23 06:27 Creatinine 0.84 mg/dl (0.6-1.4) 10/24/23 06:27 Est Cr Clr Drug Dosing 163.3 ml/min 10/24/23 06:27 Est GFR ( Amer) 119.2 ml/min 10/24/23 06:27 Est GFR (Non-Af Amer) 102.8 ml/min 10/24/23 06:27 BUN/Creatinine Ratio 31.0 (10-20) H 10/24/23 06:27 Glucose 215 mg/dl (70-99(Fasting)) H 10/24/23 06:27 POC Glucose 274 mg/dl (70-99) H 10/25/23 11:24 Estimat Average Glucose 206 mg/dl 10/16/23 07:59 Hemoglobin A1c 8.8 % (4.5-5.6) H 10/16/23 07:59 Uric Acid 6.7 mg/dl (2.6-7.2) 10/15/23 Unknown Calcium 9.3 mg/dl (8.6-10.3) 10/24/23 06:27 Phosphorus 3.5 mg/dl (2.5-4.9) 10/24/23 06:27 Magnesium 1.8 mg/dl (1.7-2.4) 10/24/23 06:27 Total Bilirubin 0.5 mg/dl (0.2-1.0) 10/15/23 Unknown AST 41 U/L (13-39) H 10/15/23 Unknown ALT 65 U/L (7-52) H 10/15/23 Unknown Alkaline Phosphatase 62 U/L (34-104) 10/15/23 Unknown Total Protein 7.1 gm/dl (6.0-8.3) 10/15/23 Unknown Albumin 3.9 gm/dl (3.4-5.0) 10/15/23 Unknown Globulin 3.2 gm/dl (2.5-4.0) 10/15/23 Unknown Albumin/Globulin Ratio 1.2 (0.9-2) 10/15/23 Unknown Lyme Disease IgG Ab Negative (Negative) 10/15/23 Unknown Lyme Disease IgM Ab Negative (Negative) 10/15/23 Unknown Impressions Venous Doppler Study 10/15/23 14:21 LEFT LOWER EXTREMITY VENOUS DOPPLER HISTORY: Acute pain and swelling of the left lower leg L foot, ankle and L calf pain, atraumatic COMPARISON STUDY: 07/29/2018 FINDINGS: There is normal compressibility, flow, and augmentation within the left lower extremity deep venous system. IMPRESSION: No DVT within the left lower extremity. ACT 112: Negative or not required by law. Electronically signed by: Gil Hilliard M.D. 10/15/2023 3:56 PM Foot X-Ray 10/15/23 16:58 XR ankle LT min 3V routine, XR foot LT min 3V routine CLINICAL HISTORY: L foot, ankle and L calf pain, atraumatic TECHNIQUE: 3 views of the left ankle and 3 views of the left foot were obtained. Comparison: None available at the time of this dictation. FINDINGS: There is a angulated fracture of the calcaneus. Well-corticated density adjacent to the navicular bone likely represents an os navicularis. The joint spaces are well preserved. The ankle mortise is intact. Soft tissue swelling is seen about the ankle. IMPRESSION: There is an angulated fracture of the calcaneus with associated soft tissue swelling. ACT 112: Negative or not required by law. Electronically signed by: Jovanni Burris M.D. 10/15/2023 6:07 PM Ankle MRI 10/15/23 18:31 Exam(s): MRI LEFT ANKLE Without Contrast EXAM: MR Left Lower Extremity Without Intravenous Contrast, Ankle CLINICAL HISTORY: Reason for exam: atraumatic ankle pain, fracture, tachycardia. TECHNIQUE: Multiplanar magnetic resonance images of the left ankle without intravenous contrast. COMPARISON: Left ankle radiographs 10/15/23 FINDINGS: Syndesmotic ligaments are intact. Anterior talofibular ligament and posterior talofibular ligament are intact. Thickening of the calcaneofibular ligament is consistent with chronic sprain. Deltoid ligament is intact, with increased intrasubstance signal suggesting old injury. There is abnormal curvilinear signal and cystic changes within the talus, with surrounding marrow changes. Findings may reflect osteonecrosis of the talus. There is an associated chronic mid-talar fracture extending to the central talar dome with articular surface irregularity. There is secondary osteoarthritic change of the tibiotalar joint. There is a moderate joint effusion with synovitis. There is subtalar joint degeneration. Marrow signal changes within the calcaneus are likely on a degenerative basis. There is no evidence of acute fracture or dislocation. Achilles tendon and plantar aponeurosis are intact. There is a short segment longitudinal split tear of the peroneus brevis tendon. Peroneus longus tendon is intact. Medial flexor tendons and anterior extensor tendons are intact. There is edema within the flexor hallucis longus muscle. IMPRESSION: 1. Findings suggestive of osteonecrosis of the talus with chronic mid- body fracture disrupting the articular surface. Secondary osteoarthritic changes of the tibiotalar joint. Moderate joint effusion with synovitis. 2. Subtalar joint degeneration with degenerative marrow signal in the calcaneus. 3. Chronic injury of the calcaneofibular ligament. Chronic injury of the deltoid ligament. 4. Short segment split tear of the peroneus brevis tendon. 5. Edema within the flexor hallucis longus muscle suggesting muscle strain. Electronically signed by: Diana Hernandez M.D. 10/15/23 20:[address] 10/16/23 06:23 CT ankle LT wo con HISTORY: 47 years-old Male AVN with talus fracture Chronic left ankle pain with avascular necrosis. COMPARISON: MRI left ankle 10/15/2023, radiographs 10/15/2023, CT October 18, 2017. TECHNIQUE: Multiple axial CT images of the left ankle were obtained without the use of IV contrast. A dose lowering technique was used consistent with the principals of LUIS ANGEL. FINDINGS: Chronic ununited peripherally corticated intra-articular fracture of the mid talus is noted with fracture line extending into the mid, medial and lateral aspects of the talar dome and also into the middle and posterior facets of the talus. This demonstrates prominent subcortical cystic changes with bony fragmentation resulting in numerous intra-articular subcentimeter loose bodies. There is flattening of the articular head of the talus with moderate tibiotalar degeneration. Fused os trigonum. Moderate-sized calcaneal enthesophytes. Mild midfoot and hindfoot osteoarthritis. There is diffusely increased sclerosis of the talus. Tendons and ligaments are not well evaluated by CT technique. IMPRESSION: 1. Chronic ununited intra-articular talar fracture with prominent subcortical cystic change suggestive of pseudoarticulation. There is chronic articular flattening of the talus with numerous intra-articular subcentimeter bone fragments/loose bodies. 2. Mild midfoot and hindfoot osteoarthritis with spurring of the calcaneus. 3. Moderate tibiotalar degeneration. 4. Diffusely increased sclerosis of the talus suggestive of avascular necrosis. ACT 112: Negative or not required by law. The above report was generated using voice recognition software. It may contain grammatical, syntax or spelling errors. Dictated: 10/16/2023 11:29 AM Transcribed: 10/16/2023 12:48 PM Darnell [id number] [email or web address] Electronically signed by: Gil Hilliard M.D. 10/16/2023 1:50 PM Lower Extremity CTA 10/19/23 08:00 CT ANGIOGRAM OF THE LEFT FOOT COMBO CLINICAL HISTORY: Preoperative examination. Talar fracture. COMPARISON STUDY: CT scan of the left ankle dated 10/16/2023. TECHNIQUE: Before and following the IV administration of 119 mL of Optiray 320, CT angiogram of the left foot is performed from the ankle to the base of the foot. Images are reviewed in the axial, sagittal, and coronal planes. IV contrast was administered without complication. MIPS images were assessed. A dose lowering technique was utilized adhering to the principles of ALARA. CT DOSE: 845.57 mGy.cm FINDINGS: The skeletal structures are well-mineralized. Again seen is diffuse sclerosis of the talus with a chronic nonunited and peripherally corticated intra-articular fracture of the mid talus. Fracture involves the talar dome as well as the middle and posterior facets. There is associated subcortical cystic change and bony fragmentation, with numerous tiny intra-articular foreign bodies. There is flattening of the talus with degenerative change at the tibiotalar articulation. A joint effusion is noted. No additional fracture is seen. There are large dorsal and small plantar heel spurs. A fused os trigonum is incidentally noted. The Achilles tendon is intact as visualized. The anterior tibial, posterior tibial, and peroneal arteries are widely patent. The dorsalis pedis artery is widely patent. No peripherally-enhancing fluid collection is seen on the angiogram phase images. IMPRESSION: 1. Normal CT angiogram of the left foot. The regional arteries are widely paten t. 2. There is unchanged appearance of a chronic nonunited intra-articular talar fracture as compared to the recent CT scan of the ankle. 3. Ankle joint effusion with numerous small radiodense foreign bodies. 4. Flattening of the talar dome with osteoarthritic change at the tibiotalar articulation. ACT 112: Negative or not required by law. Dictated: 10/19/2023 10:29 AM Transcribed: 10/19/2023 10:55 AM Darnell [id number] [email or web address] Electronically signed by: Jaydon Wallace M.D. 10/19/2023 11:09 AM Ankle X-Ray 10/20/23 00:00 INTRAOPERATIVE RADIOGRAPHS CLINICAL HISTORY: Left ankle arthrodesis. Incorrect instrument count. Fluoro time: 104 seconds Ka,r: 3.10 mGy FINDINGS: 3 spot fluoroscopic views of the left ankle are correlated with radiographs dated 10/15/2023. The distal fibula is surgically absent with overlying bone graft material. A nail has been placed extending from the tibial shaft to the calcaneus. 2 cortical lag screws transfix the tibial component, and 2 additional cortical screws transfix the tarsal component. The orthopedic hardware appears intact. Overlying soft tissue edema is noted. No radiodense foreign body is identified to suggest retained surgical implement. IMPRESSION: Intraoperative images from left ankle arthrodesis as above. Electronically signed by: Jaydon Wallace M.D. 10/20/2023 7:47 PM Ordered Studies 10/15/23 14:21 US venous doppler LE LT Stat 10/15/23 18:31 MR ankle LT wo con Stat 10/16/23 06:23 CT ankle LT wo con Routine 10/19/23 08:00 CT angio foot LT wo/w con Routine 10/20/23 FL ankle LT min 3V RTN Routine 10/20/23 13:09 US - OR guided needle placemen Stat Hospital Course (1) Charcot's joint arthropathy in type 2 diabetes mellitus: (2) Left ankle pain: (3) Osteonecrosis: (4) Acute pain of left lower extremity: (5) Sleep apnea: Plan Mr. Akhtar is a 47 yr male with H/O Type 2 diabetes, diabetic neuropathy, chronic respiratory failure with hypercapnia, obstructive sleep apnea, COPD, restrictive lung disease, hyperlipidemia, morbid obesity, gastroparesis, irritable bowel syndrome, GERD, history of DVT, cervical spinal stenosis, presents with left ankle pain going on for several months. Patient is now s/p Left Ankle Tibiotalocalcaneal Arthrodesis, Tendo Achilles Lengthening (Left) Left ankle pain 2/2 Osteonecrosis s/p Left Ankle Tibiotalocalcaneal Arthrodesis, Tendo Achilles Lengthening (Left) --Ankle MRI:Findings suggestive of osteonecrosis of the talus with chronic mid- body fracture disrupting the articular surface. Secondary osteoarthritic changes of the tibiotalar joint. Moderate joint effusion with synovitis. Subtalar joint degeneration with degenerative marrow signal in the calcaneus. Chronic injury of the calcaneofibular ligament. Chronic injury of the deltoid ligament. Short segment split tear of the peroneus brevis tendon. Edema within the flexor hallucis longus muscle suggesting muscle strain. --Left LE CT:Chronic ununited intra-articular talar fracture with prominent subcortical cystic change suggestive of pseudoarticulation. There is chronic articular flattening of the talus with numerous intra-articular subcentimeter bone fragments/loose bodies. Mild midfoot and hindfoot osteoarthritis with spurring of the calcaneus. Moderate tibiotalar degeneration. Diffusely increased sclerosis of the talus suggestive of avascular necrosis. --Venous Doppler:No DVT within the left lower extremity. --LLE CTA: Normal CT angiogram of the left foot. The regional arteries are widely patent.2. There is unchanged appearance of a chronic nonunited intra- articular talar fracture as compared to the recent CT scan of the ankle.3. Ankle joint effusion with numerous small radiodense foreign bodies.4. Flattening of the talar dome with osteoarthritic change at the tibiotalar articulation. S/P Left Ankle Tibiotalocalcaneal Arthrodesis, Tendo Achilles Lengthening by Dr. Camacho on October 20, 2023 continue bowel regimen while on narcotics to prevent constipation Continue pain control NWB LLE per Dr. Camacho for now, trial of a knee scooter per OT PT/OT eval - home with Patient refused rehab placement Plan to discharge home today Advised to follow-up with Dr. Camacho on discharge Acute on chronic anemia secondary to blood loss from post-op Baseline roughly 13 Hb 11.9 today Monitor Obstructive sleep apnea on CPAP nightly Says currently his CPAP machine has been getting adjusted for settings. Currently not using CPAP COPD Restrictive lung disease Chronic respiratory hypercapnia Continue home inhalers monitor DM II HbA1c 8.8, 10/16/23 Continue home long-acting insulin continue Insulin while hospitalized Monitor BGs, stable Requesting asthma educator, consulted Hypertension Continue hydrochlorothiazide, losartan and metoprolol succinate and spironolactone monitor BP Morbid obesity BMI 39.8 DVT Px: Lovenox SQ Code Status Full code Disposition Refused rehab placement Plan to discharge home with home health Total Time Total Time Spent Total Time Spent (In Minutes): 56 minutes Discharge Plan Discharge Items Patient Disposition: Home - Home Health Services Reason For Visit: LEFT ANKLE PAIN Discharge Diagnosis: Osteonecrosis s/p Left Ankle Tibiotalocalcaneal Arthrodesis, Tendo Achilles Lengthening Postoperative blood loss anemia Condition on Discharge: Good Activity: Per Instructions section Weightbearing Comment: Nonweightbearing left lower extremity Non-emergency contact: Primary Care Provider and Surgeon Call non-emergency contact if: you have any medication questions, your symptoms worsen, your pain is concerning for you, you have a fever, your wound has increa sed redness, your wound has increased drainage and your wound pain has increased Follow-up/Referrals: Velasquez Valencia MD [Primary Care Provider] - (Date & Time 10/29/2023 10:00 AM Provider Velasquez Valencia MD [facility] ) Diet: Carb Consistent or DM2 Addtl Attending Provider Instructions: Follow-up with your primary care physician on 10/29/2023 10:00 AM Follow-up with your air and water filler Dr. Camacho in 1 week as advised Seek immediate medical attention if your symptoms reoccur or worsen Please take all medications as instructed on discharge list below. Please call if you have any questions or problems. You can reach a [facility] hospitalist on duty at [facility] 24 hours a day by calling [phone] Pending Studies at Discharge: No Stand-Alone Forms: My [facility], Smoking Cessation Medications and DC Order Prescriptions: New oxycodone 10 mg tablet 10 mg PO Q8H PRN (Reason: pain) Qty: 15 0RF Continued insulin aspart U-100 [Novolog FlexPen U-100 Insulin] 100 unit/mL (3 mL) insulin pen 18 unit subcut TID Patient Comments: 16 all the time Rx Instructions: w/meals dicyclomine 10 mg capsule 10 mg PO QID PRN (Reason: Diarrhea) famotidine 20 mg tablet 20 mg PO HS pantoprazole 40 mg tablet,delayed release (DR/EC) 40 mg PO BID metformin 500 mg tablet 1,000 mg PO BID Mounjaro 15 mg/0.5 mL pen injector 15 mg SUBCUT WK Rx Instructions: Mondays losartan 100 mg tablet 100 mg PO DAILY Qty: 30 0RF metoprolol succinate [Toprol XL] 100 mg tablet extended release 24 hr 100 mg PO QAM Qty: 30 0RF metoprolol succinate 50 mg Tablet Extended Release 24 Hr 50 mg PO QPM Qty: 30 0RF atorvastatin 20 mg Tablet 20 mg PO QAM Qty: 30 0RF spironolactone 25 mg Tablet 25 mg PO QAM Qty: 30 0RF aspirin 81 mg Tablet,Delayed Release (Dr/Ec) 81 mg PO QAM Qty: 30 0RF hydrochlorothiazide 25 mg Tablet 25 mg PO QAM Qty: 30 0RF cyclobenzaprine 10 mg tablet 10 mg PO HS gabapentin 100 mg capsule See Rx Instructions .ROUTE .COMPLEX Rx Instructions: TAKES 100 MG QAM, THEN 200 MG QHS. metoclopramide HCl 10 mg tablet 10 mg PO TID insulin glargine [Lantus Solostar U-100 Insulin] 100 unit/mL (3 mL) insulin pen See Rx Instructions .ROUTE .COMPLEX Rx Instructions: TAKES 30 UNITS QAM, THEN 40 UNITS QHS. budesonide-formoterol [Symbicort] 80-4.5 mcg/actuation HFA aerosol inhaler 2 puff INHALATION BID ibuprofen-acetaminophen [Dual Action Pain Reliever] 125-250 mg Tablet 3 tab PO BID albuterol sulfate 90 mcg/actuation HFA aerosol inhaler 3 inh inhalation Q6H PRN (Reason: WHEEZING/SOB) docusate sodium [Col-Rite] 100 mg capsule 100 mg PO BID PRN (Reason: Constipation) Qty: 60 0RF Discharge Orders: Discharge Order (Routine); Ordered 10/25/23 Ordered By: Diogenes Lopez/Other Patient Handouts: Nutrition for Wound Healing, Managing Type 2 Diabetes, Special Foot Care for Diabetes Admission Data Admit Date/Time: 10/15/23 21:43 Attending Provider: Diogenes Richard Admit Provider: Hernan Busby Primary Care Provider: Velasquez Valencia Other Providers: Hernan Busby; Glenn Camacho; Mackenzie Shelton
--- NOTE | 2023-10-26 16:57 | XRay Report ---
XR ankle LT 2V CLINICAL HISTORY: post operative pain TECHNIQUE: 1 views of the left ankle were obtained. Comparison: Comparison is made to ankle radiograph 10/20/2023 FINDINGS: Postsurgical changes are again seen. Linear lucency in the distal lateral aspect of the tibia is unch anged. Hardware is seen without perihardware lucency or hardware fracture. Soft tissue swelling is se en. IMPRESSION: Postsurgical changes as above. ACT 112: Negative or not required by law. Electronically signed by: Jovanni Burris M.D. 10/26/2023 4:56 PM
--- NOTE | 2023-10-27 06:43 | Orthopedic Consultation ---
Date of Consultation October 27, 2023 Assessment & Plan (1) Osteonecrosis: Patient seen and evaluated in [facility] Emergency Department B11. Patient is status post day #6 TTC left, RHONDA left (DOS: 10/20/23). There are no signs of infection observed. Incision sites are clean, dry, and intact. Skin is well coapted. The posterior splint does show signs of ambulation with out stephanie bandages soiled with dirt and debris over the plantar foot. Patient does admit to some short walking. We did discuss need to remain non weight bearing to surgical extremity. X-rays reviewed of the left foot and ankle. Hardware is intact and in good alignment. Will continue to follow Patient if remains in house otherwise he will follow up in office. (2) Left ankle pain: (3) Acute pain of left lower extremity: History of Present Illness Attending Physician: Diogenes Richard MD History of Present Illness Patient is a 47-year-old male status post day #6 Left TTC arthrodesis who is seen at [facility] Emergency Department bed B11 with a chief complaint of right foot pain and abdominal pain. He arrived by private vehicle. Patient is with who helps with history and care. Patient and state his symptoms have been worsening over about the past 24 hours. Patient states he has had some nausea and vomiting as well. Patient states he took some oxycodone last night which did not help with his pain. Patient appears to be in mild distress secondary to nausea and abdominal discomfort, as well as left foot pain. Allergies Allergy/AdvReac Type Severity Reaction Status Date / Time cefaclor [From Ceclor] Allergy Unknown childhood Verified 10/26/23 16:22 allergy ? Cephalosporins Allergy Unknown Unknown Verified 10/26/23 16:22 empagliflozin AdvReac Unknown put me Verified 10/26/23 16:22 [From Jardiance] into ketoacidosis? NSAIDS (Non-Steroidal AdvReac Unknown use with Verified 10/26/23 16:22 Anti-Inflamma caution : hx esophagus damage Home Medications Medication Instructions Recorded Confirmed Type insulin aspart U-100 100 unit/mL 18 unit subcut TID 06/09/19 10/26/23 History (3 mL) subcutaneous pen (Novolog FlexPen U-100 Insulin aspart) dicyclomine 10 mg capsule 10 mg PO QID PRN Diarrhea 05/01/20 10/26/23 History famotidine 20 mg tablet 20 mg PO HS 07/13/20 10/26/23 History pantoprazole 40 mg tablet,delayed 40 mg PO BID 02/25/21 10/26/23 History release metformin 500 mg tablet 1,000 mg PO BID 08/26/21 10/26/23 History cyclobenzaprine 10 mg tablet 10 mg PO HS muscle spasms 09/06/22 10/26/23 History gabapentin 100 mg capsule See Rx Instructions .Route .COMPLEX 09/06/22 10/26/23 History insulin glargine 100 unit/mL (3 See Rx Instructions .Route .COMPLEX 09/06/22 10/26/23 History mL) subcutaneous pen (Lantus Solostar U-100 Insulin) metoclopramide HCl 10 mg tablet 10 mg PO TID 09/06/22 10/26/23 History budesonide-formoterol HFA 80 2 puff inhalation BID 02/08/23 10/26/23 History mcg-4.5 mcg/actuation aerosol inhaler (Symbicort) tirzepatide 15 mg/0.5 mL 15 mg subcut WK 09/19/23 10/26/23 History subcutaneous pen injector (Jake) aspirin 81 mg tablet,delayed 81 mg PO QAM #30 tabs 09/22/23 10/26/23 Rx release atorvastatin 20 mg tablet 20 mg PO QAM #30 tabs 09/22/23 10/26/23 Rx hydrochlorothiazide 25 mg tablet 25 mg PO QAM #30 tabs 09/22/23 10/26/23 Rx losartan 100 mg tablet 100 mg PO DAILY #30 tabs 09/22/23 10/26/23 Rx metoprolol succinate 100 mg 100 mg PO QAM #30 tabs 09/22/23 10/26/23 Rx tablet,extended release 24 hr (Toprol XL) metoprolol succinate 50 mg 50 mg PO QPM #30 tabs 09/22/23 10/26/23 Rx tablet,extended release 24 hr spironolactone 25 mg tablet 25 mg PO QAM #30 tabs 09/22/23 10/26/23 Rx albuterol sulfate 90 mcg/actuation 3 inh inhalation Q6H PRN 10/15/23 10/26/23 History aerosol inhaler WHEEZING/SOB ibuprofen 125 mg-acetaminophen 250 3 tab PO BID 10/15/23 10/26/23 History mg tablet (Dual Action Pain Reliever) docusate sodium 100 mg capsule 100 mg PO BID PRN Constipation #60 10/25/23 10/26/23 Rx (Col-Rite) caps oxycodone 10 mg tablet 10 mg PO Q8H PRN pain #15 tabs 10/25/23 10/26/23 Rx polyethylene glycol 3350 17 17 g PO DAILY PRN constipation 10/26/23 Rx gram/dose oral powder (Miralax) #119 grams Patient History Medical History Sleep apnea Multiple pulmonary nodules determined by computed tomography of lung Arthritis Low magnesium level History of RSV infection & flu a few months ago. Tachycardia chronic high heart rate - unknown etiology - a few months ago increased dose of metoprolol. Rhinovirus dx May 23 [facility] & another illness dx - ? name of /antibiotic and inhalers for. feeling better: only symptom : sore throat. COPD (chronic obstructive pulmonary disease) ? dx of Peripheral neuropathy Diabetes mellitus, type 2 Hypertension Tobacco use Restrictive lung disease Elevated liver function tests History of DVT (deep vein thrombosis) "years ago">no known cause Tussive syncope "occurred only one time, no recent issues" Esophagitis Osteoarthritis Hx of pancreatitis resolved GERD (gastroesophageal reflux disease) Cardiac murmur A CHILD Erectile dysfunction MRSA (methicillin resistant Staphylococcus aureus) carrier over 2 yrs ago>"not sure where it was" Intellectual disability Obstructive sleep apnea cpap Obesity IBS (irritable bowel syndrome) History of ventricular tachycardia "nonsustained" Surgical History History of appendectomy 02/10/2023 History of reduction of nasal fracture 09/25/21-Dr. Garcia Status post incision and drainage LLE History of shoulder surgery right-2019 H/O foot surgery LEFT-2018 History of arthroscopy LEFT [id number] History of esophagogastroduodenoscopy (EGD) History of colonoscopy with most recent attempt: failed prep. Told would need a 2 day prep prior to colonoscopy in Sep 2023. History of tooth extraction History of tonsillectomy and adenoidectomy 1979 Family History Brother Family history of diabetes mellitus Environmental allergies Asthma Mother Family history of diabetes mellitus Hypertension Environmental allergies Father Family history of diabetes mellitus Hypertension Heart disease Grandfather (Paternal) Lung cancer smoker Aunt Bleeding disorder Other No family history of adverse response to anesthesia Social History Smoking Status: Current every day smoker Tobacco Type: Cigarettes Age Started Using Tobacco: 14; Cigarettes Per Day: 1 pack; Second Hand Exposure: No; Do You Dip or Chew Tobacco: No; Hx Alcohol Use: Yes Alcohol type: beer Alcohol Intake Frequency: Monthly or Less Alcohol Intake Frequency Comment: seldom, a couple times per year if that per pt Hx Substance Use: No Preferred Language: Italian Communication Ability: Effective Penciller Required: No Beliefs That Will Affect Care: None marital status: / marital status details: single at this time Current Living Situation: Significant Other Current Living Situation Comment: with Ni and dog, in home, 1 JING current occupational status: employed 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 other: girlfriend able to assist with dressing changes and care as needed Feels Safe at Home: Yes Diet: diabetic during the past year weight has: remained stable Assistive Devices: None Review of Systems Review of Systems: All systems reviewed & are unremarkable except as noted in HPI & below Physical Exam Constitutional: well nourished, + obese and cooperative Eyes: normal visual thomas by confrontation Neck: normal visual inspection Respiratory: normal respiratory effort Cardiovascular: Rate/Rhythm: regular rate and regular rhythm Musculoskeletal: Extremities: extremities normal to inspection Skin: normal turgor and + incision (Well co-apted.) Neurologic: moves all extremities (Decreased epicritic sensation) Psychiatric: Orientation: alert and oriented x 3
== END 2023-10-25 17:12 | disposition home health service (06) | DRG 493 ==
LOC: ED 13:56 → 3W 21:43 → SUATTDRO 21:43 → 3W 23:02

== ENCOUNTER 2024-07-13 18:13 | Inpatient (IN) ==
[2024-07-13 18:55] LABS: Basophils # (auto) 0.06 K/uL (0.00-0.20); Basophils % (auto) 0.9 %; Eosinophils # (auto) 0.37 K/uL (0.00-0.50); Eosinophils % (auto) 5.4 %; Hematocrit (blood only) 34.2 % (42.0-52.0); Hemoglobin 10.9 g/dl (14.0-18.0); Immature Granulocytes # (auto) 0.15 K/uL (0.01-0.20); Immature Granulocytes % (auto) 2.2 %; Lymphocytes # (auto) 1.74 K/uL (1.20-3.40); Lymphocytes % (auto) 25.6 %; Mean Corpuscular Hemoglobin 26.7 pg (25.0-34.0); Mean Corpuscular Hgb Conc 31.9 g/dL (32.0-36.0); Mean Corpuscular Volume 83.8 fL (80.0-100.0); Mean Platelet Volume 9.7 fL (9.4-12.4); Monocytes # (auto) 0.73 K/uL (0.11-0.59); Monocytes % (auto) 10.8 %; Neutrophils # (auto) 3.74 K/uL (1.40-6.50); Neutrophils % (auto) 55.1 %; Platelet Count 234 K/uL (130-400); RDW Coefficient of Variation 14.9 % (11.5-14.5); RDW Standard Deviation 45.4 fL (36.4-46.3); Red Blood Count 4.08 M/uL (4.70-6.10); White Blood Count 6.79 K/ul (4.8-10.8)
[2024-07-13 19:18] LABS: Base Excess VBG 5.5 mEq/L; HCO3 VBG 32 mmol/L; Oxygen Saturation VBG 89.8 %; PCO2 VBG 51 mmHg (38-50); PO2 VBG 55 mmHg
[2024-07-13 19:22] LABS: INR 0.9 (0.9-1.1); Partial Thromboplastin Time 27 Seconds (21-31)
[2024-07-13 19:24] LABS: Creatinine Clr Calc Pharmacy 122.8 ml/min; Est GFR (African American) 82.1 ml/min; Est GFR (Non-African American) 70.8 ml/min; Troponin I High Sensitivity 8.4 pg/ml (0-20)
[2024-07-13] MEDS: OPTIRAY 320 125ml IV ONE (21:01)
--- NOTE | 2024-07-13 21:28 | CT Scan Report ---
Exam(s): CTA CHEST IV Amt: 119ml optiray 320 EXAM: CT Angiography Chest With Intravenous Contrast CLINICAL HISTORY: Shortness of breath. Lower extremity swelling. Evaluate for pulmonary embolism. TECHNIQUE: Axial computed tomographic angiography images of the chest with intravenous contrast. CTDI is 28.14 mGy and DLP is 2153.11 mGy-cm. Automated exposure control was utilized for the study. A dose lowering technique was utilized adhering to the principles of ALARA. MIP reconstructed images were created and reviewed. COMPARISON: CTA chest dated 09/19/2023 FINDINGS: Artifacts: Scatter artifact likely related to patient's body habitus. Limitations: There is respiratory artifact, which degrades image quality on multiple image slices. Pulmonary arteries: Accounting for limitations with respiratory artifact, there is no evidence for pulmonary embolism. Several distal subsegmental pulmonary artery segments are of nondiagnostic quality. Aorta: The thoracic aorta is normal in caliber. No dissection or aneurysm. Lungs: Expiratory lung volumes. No definite focal airspace consolidation, accounting for limitations with respiratory artifact. Pleural space: Unremarkable. No significant effusion. No pneumothorax. Heart: The cardiac chambers are mildly prominent. At least moderate coronary artery calcification noted. No pericardial effusion. Bones/joints: No acute fracture. No dislocation. Soft tissues: Unremarkable. Lymph nodes: Unremarkable. No enlarged lymph nodes. IMPRESSION: 1. Accounting for limitations with respiratory artifact, there is no evidence for pulmonary embolism. Several distal subsegmental pulmonary artery segments are of nondiagnostic quality. 2. Expiratory lung volumes. No definite focal airspace consolidation, accounting for limitations with respiratory artifact. No pleural effusion or pneumothorax. Electronically signed by: Elmer Jose MD 07/13/24 21:27 PM
[2024-07-13] MEDS: NovoLIN-R INSULIN PER UNIT CHARGE IV STA (22:15)
[2024-07-13 22:16] LABS: Appearance Urine Clear (Clear); Bacteria Urine Automated None Seen (None Seen); Bilirubin Urine Negative (Negative); Blood Urine Negative (Negative); Cast Urine Automated 0-2 /lpf (0-2); Color Urine Yellow; Epithelial Cell Urine Auto 0-2 /hpf (0-2); Glucose Urine UA 3+ (Negative); Ketones Urine Negative (Negative); Leukocyte Esterase Urine Negative (Negative); Nitrite Urine Negative (Negative); Protein Urine Trace (Negative); RBC Urine Automated 0-2 /hpf (0-2); Urobilinogen Urine Negative (Negative); WBC Urine Automated 0-5 /hpf (0-5); pH Urine 5.5 (4.5-7.5)
[2024-07-13 22:22] LABS: Magnesium 1.6 mg/dl (1.7-2.4)
--- NOTE | 2024-07-13 22:24 | XRay Report ---
SINGLE VIEW CHEST CLINICAL HISTORY: Atypical chest pain FINDINGS: An AP, portable, upright chest radiograph is compared to study dated 12/23/2023 and correlate d with chest CT dated 09/19/2023. The examination is degraded by portable technique and apical lordoti c positioning. The cardiomediastinal silhouette is top normal for projection. The lungs and pleural s paces are clear noting mild dependent atelectasis. No pneumothorax is seen. The bony thorax is grossl y intact. IMPRESSION: No active disease in the chest. ACT 112: Negative or not required by law. Electronically signed by: Jaydon Wallace M.D. 07/13/2024 10:22 PM
[2024-07-13] MEDS: METOPROLOL TARTRATE 1 MG/ML VIAL IV STA (23:25)
[2024-07-13] MEDS: ALBUMIN 25% 25 GM/100 ML VIAL IV ONE (23:26)
--- NOTE | 2024-07-13 23:46 | History & Physical Report ---
Date of Service July 13, 2024 Assessment & Plan (1) Acute and chronic respiratory failure with hypercapnia: Plan: Likely right-sided heart failure, uncontrolled hypertension Rule out pulmonary hypertension given history COPD/RLD, DAMION/CPAP noncompliance hyperlipidemia, on statin Rx PE/DVT status post anticoagulation DM2 insulin requiring, suboptimal control as of recent hemoglobin A1c of 8.6 last April 2024 hx NAFLD hx gastroparesis chronic anemia, hemoglobin at baseline morbid obesity intellectual disability as per records Borderline hyperkalemia ongoing tobacco abuse Admit to PCU Supplemental O2 Diuretic Rx Strict I/Os, daily weights, CHF education, fluid restriction TTE, Cardiology consult Re: Possible CHF Patient counseled need to comply with CPAP and follow-up with Sleep Medicine. Additional counseling given regarding adverse effects of NSAIDs blood pressure and fluid status. Hold losartan and spironolactone for now given borderline hyperkalemia Basal bolus insulin, ISS BG goal 1 10-1 40, carb count coverage Nicotine patch as needed DVT prophylaxis. Lovenox subcu Full code Total critical care time was 45 minutes. Text document was generated using [employer] voice recognition software. It may contain grammatical or spelling errors. Kindly contact undersigned for clarification of any documentation item in question. History of Present Illness Chief Complaint: Chest tightness, abdominal tightness Primary Care Provider: Velasquez Valencia MD History obtained from patient and records. Medical history significant for hypertension, hyperlipidemia, COPD/RLD, DAMION (current CPAP noncompliance), PE/DVT status post anticoagulation, DM2 insulin requiring, NAFLD, GERD, gastroparesis, history of pancreatitis, chronic anemia (baseline hemoglobin 10-11), morbid obesity, intellectual disability as per records, ongoing tobacco abuse. Last confinement September 2023 for osteonecrosis left foot status post BKA. Patient not this increases chest and abdominal tightness and fullness the last 2 days. Pants no longer fitting him. Heavy breathing without cough symptoms. Compliant with home meds. Denies headache symptoms. Highest SBP of 190s documented at the ER. 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 Cephalosporins Allergy Unknown Unknown Verified 07/13/24 21:47 empagliflozin AdvReac Unknown put me Verified 07/13/24 21:47 [From Jardiance] into ketoacidosis? NSAIDS (Non-Steroidal AdvReac Unknown use with Verified 07/13/24 21:47 Anti-Inflamma caution : hx esophagus damage Home Medications Medication Instructions Recorded Confirmed Type insulin aspart U-100 100 unit/mL 18 unit subcut TID 06/09/19 07/13/24 History (3 mL) subcutaneous pen (Novolog FlexPen U-100 Insulin aspart) dicyclomine 10 mg capsule 10 mg PO QID PRN Diarrhea 05/01/20 07/13/24 History famotidine 20 mg tablet 20 mg PO HS 07/13/20 07/13/24 History pantoprazole 40 mg tablet,delayed 40 mg PO BID 02/25/21 07/13/24 History release metformin 500 mg tablet 1,000 mg PO BID 08/26/21 07/13/24 History cyclobenzaprine 10 mg tablet 10 mg PO HS muscle spasms 09/06/22 07/13/24 History gabapentin 100 mg capsule See Rx Instructions .Route .COMPLEX 09/06/22 07/13/24 History insulin glargine 100 unit/mL (3 40 unit subcut BID 09/06/22 07/13/24 History mL) subcutaneous pen (Lantus Solostar U-100 Insulin) metoclopramide HCl 10 mg tablet 10 mg PO TID 09/06/22 07/13/24 History budesonide-formoterol HFA 80 2 puff inhalation BID 02/08/23 07/13/24 History mcg-4.5 mcg/actuation aerosol inhaler (Symbicort) aspirin 81 mg tablet,delayed 81 mg PO QAM #30 tabs 09/22/23 07/13/24 Rx release atorvastatin 20 mg tablet 20 mg PO QAM #30 tabs 09/22/23 07/13/24 Rx hydrochlorothiazide 25 mg tablet 25 mg PO QAM #30 tabs 09/22/23 07/13/24 Rx losartan 100 mg tablet 100 mg PO DAILY #30 tabs 09/22/23 07/13/24 Rx metoprolol succinate 100 mg 100 mg PO QAM #30 tabs 09/22/23 07/13/24 Rx tablet,extended release 24 hr (Toprol XL) metoprolol succinate 50 mg 50 mg PO QPM #30 tabs 09/22/23 07/13/24 Rx tablet,extended release 24 hr spironolactone 25 mg tablet 25 mg PO QAM #30 tabs 09/22/23 07/13/24 Rx albuterol sulfate 90 mcg/actuation 2 inh inhalation Q6H PRN 10/15/23 07/13/24 History aerosol inhaler WHEEZING/SOB ibuprofen 125 mg-acetaminophen 250 3 tab PO BID 10/15/23 07/13/24 History mg tablet (Dual Action Pain Reliever) docusate sodium 100 mg capsule 100 mg PO BID PRN Constipation #60 10/25/23 07/13/24 Rx (Col-Rite) caps polyethylene glycol 3350 17 17 g PO DAILY PRN constipation 10/26/23 07/13/24 Rx gram/dose oral powder (Miralax) #119 grams naloxegol 25 mg tablet (Movantik) 25 mg PO DAILY 07/13/24 07/13/24 History torsemide 10 mg tablet 10 mg PO DAILY 07/13/24 07/13/24 History Past Med/Surg History Problem List (Updated 07/14/24 @ 04:40 by Zach Brown MD) Acute and chronic respiratory failure with hypercapnia Shortness of breath (Acute) 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 Garcia Morbid obesity Chronic respiratory failure with hypercapnia Diabetic peripheral neuropathy associated with type 2 diabetes mellitus Loss of protective sensation of skin of foot Epigastric abdominal pain Encounter for pre-operative examination Colon polyp Medical History Arthritis Low magnesium level History of RSV infection & flu a few months ago. Tachycardia chronic high heart rate - unknown etiology - a few months ago increased dose of metoprolol. Rhinovirus dx May 23 [facility] & another illness dx - ? name of /antibiotic and inhalers for. feeling better: only symptom : sore throat. COPD (chronic obstructive pulmonary disease) ? dx of Peripheral neuropathy Diabetes mellitus, type 2 Hypertension Tobacco use Restrictive lung disease Elevated liver function tests History of DVT (deep vein thrombosis) "years ago">no known cause Tussive syncope "occurred only one time, no recent issues" Esophagitis Osteoarthritis Hx of pancreatitis resolved GERD (gastroesophageal reflux disease) Cardiac murmur A CHILD Erectile dysfunction MRSA (methicillin resistant Staphylococcus aureus) carrier over 2 yrs ago>"not sure where it was" Intellectual disability Obstructive sleep apnea cpap Obesity IBS (irritable bowel syndrome) History of ventricular tachycardia "nonsustained" Surgical History History of appendectomy 02/10/2023 History of reduction of nasal fracture 09/25/21-Dr. Garcia Status post incision and drainage LLE History of shoulder surgery right-2019 H/O foot surgery LEFT-2018 History of arthroscopy LEFT [id number] History of esophagogastroduodenoscopy (EGD) History of colonoscopy with most recent attempt: failed prep. Told would need a 2 day prep prior to colonoscopy in Sep 2023. History of tooth extraction History of tonsillectomy and adenoidectomy 1979 Family History Brother Family history of diabetes mellitus Environmental allergies Asthma Mother Family history of diabetes mellitus Hypertension Environmental allergies Father Family history of diabetes mellitus Hypertension Heart disease Grandfather (Paternal) Lung cancer smoker Aunt Bleeding disorder Other No family history of adverse response to anesthesia Social History Smoking Status: Current every day smoker Tobacco Type: Cigarettes Age Started Using Tobacco: 14; Cigarettes Per Day: 1 pack; Second Hand Exposure: No; Do You Dip or Chew Tobacco: No; Hx Alcohol Use: Yes Alcohol type: beer Alcohol Intake Frequency: Monthly or Less Alcohol Intake Frequency Comment: seldom, a couple times per year if that per pt Hx Substance Use: No Preferred Language: Chadian Communication Ability: Effective Ballistics Tester Required: No Beliefs That Will Affect Care: None marital status: / marital status details: single at this time Current Living Situation: Significant Other Current Living Situation Comment: with Ni and dog, in home, 1 JING current occupational status: employed 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 Other Information That Helps Us Care for You: No other: girlfriend able to assist with dressing changes and care as needed Feels Safe at Home: Yes Safety Concerns: Feels Safe At This Time Diet: diabetic during the past year weight has: remained stable Assistive Devices: CPAP, Wheelchair and Other Assistive Devices Comment: shower chair Review of Systems Review of Systems: As per HPI, all other systems reviewed and negative Physical Exam Physical Exam: GENERAL: Comfortable, pleasant, morbidly obese, no respiratory distress SKIN: Pallor, warm HEENT: Alopecia, pale palpebral conjunctivae, no ptosis, moist buccal mucosa, nasal cannula in place NECK : Supple, short neck, no tenderness CHEST : Decreased breath sounds, no tenderness HEART : RRR, no obvious murmurs ABDOMEN: Some distention, nontender EXTREMITIES : RLE swelling without tenderness, left BKA stump NEUROLOGIC : Coherent, no facial asymmetry, no other gross focality Results & Data Results & Data Vital Signs (Past 12 Hours) Vital Signs Temp Pulse Pulse Resp BP BP Pulse Ox 07/13/24 23:35 88 L 07/13/24 23:24 100 H 22 174/83 H 92 07/13/24 22:54 21 94 07/13/24 22:00 101 H 24 191/116 H 92 07/13/24 22:00 103 H 20 191/116 H 93 07/13/24 21:30 101 H 24 166/85 H 92 07/13/24 21:00 98 H 21 132/69 91 07/13/24 20:00 100 H 17 142/92 H 89 L 07/13/24 20:00 100 H 17 142/92 H 88 L 07/13/24 19:30 102 H 24 175/54 H 91 07/13/24 19:06 100 H 26 H 93 07/13/24 18:48 110 H 24 90 07/13/24 18:33 37.4 C 100 H 24 126/72 90 07/13/24 18:30 99 H 32 H 90 07/13/24 18:24 100 H 07/13/24 18:24 90 07/13/24 18:24 07/13/24 18:24 37.4 C 110 H 24 126/72 90 O2 Del Method O2 Flow Rate 07/13/24 23:35 Nasal Cannula 0 07/13/24 23:24 Room Air 07/13/24 22:54 Room Air 07/13/24 22:00 Room Air 07/13/24 22:00 Room Air 07/13/24 21:30 Room Air 07/13/24 21:00 Room Air 07/13/24 20:00 Room Air 07/13/24 20:00 Room Air 07/13/24 19:30 Room Air 07/13/24 19:06 Room Air 07/13/24 18:48 Room Air 07/13/24 18:33 Room Air 07/13/24 18:30 Room Air 07/13/24 18:24 07/13/24 18:24 Room Air 07/13/24 18:24 Room Air 07/13/24 18:24 Room Air Laboratory Results Laboratory Results WBC 6.79 K/ul (4.8-10.8) 07/13/24 18:30 RBC 4.08 M/uL (4.70-6.10) L 07/13/24 18:30 Hgb 10.9 g/dl (14.0-18.0) L 07/13/24 18:30 Hct 34.2 % (42.0-52.0) L 07/13/24 18:30 MCV 83.8 fL (80.0-100.0) 07/13/24 18:30 MCH 26.7 pg (25.0-34.0) 07/13/24 18:30 MCHC 31.9 g/dL (32.0-36.0) L 07/13/24 18:30 RDW Std Deviation 45.4 fL (36.4-46.3) 07/13/24 18:30 RDW Coeff of Abiodun 14.9 % (11.5-14.5) H 07/13/24 18:30 Plt Count 234 K/uL (130-400) 07/13/24 18:30 MPV 9.7 fL (9.4-12.4) 07/13/24 18:30 Immature Gran % (Auto) 2.2 % 07/13/24 18:30 Neut % (Auto) 55.1 % 07/13/24 18:30 Lymph % (Auto) 25.6 % 07/13/24 18:30 [place] % (Auto) 10.8 % 07/13/24 18:30 Eos % (Auto) 5.4 % 07/13/24 18:30 Baso % (Auto) 0.9 % 07/13/24 18:30 Neut # (Auto) 3.74 K/uL (1.40-6.50) 07/13/24 18:30 Lymph # (Auto) 1.74 K/uL (1.20-3.40) 07/13/24 18:30 [place] # (Auto) 0.73 K/uL (0.11-0.59) H 07/13/24 18:30 Eos # (Auto) 0.37 K/uL (0.00-0.50) 07/13/24 18:30 Baso # (Auto) 0.06 K/uL (0.00-0.20) 07/13/24 18:30 Immature Gran # (Auto) 0.15 K/uL (0.01-0.20) 07/13/24 18:30 PT 10.0 Seconds (9.0-12.0) 07/13/24 18:30 INR 0.9 (0.9-1.1) 07/13/24 18:30 APTT 27 Seconds (21-31) 07/13/24 18:30 PTT Ratio 1.0 07/13/24 18:30 VBG pH 7.40 (7.36-7.41) 07/13/24 19:07 VBG pCO2 51 mmHg (38-50) H 07/13/24 19:07 VBG pO2 55 mmHg 07/13/24 19:07 VBG HCO3 32 mmol/L 07/13/24 19:07 VBG O2 Saturation 89.8 % 07/13/24 19:07 VBG Base Excess 5.5 mEq/L 07/13/24 19:07 Sodium 133 mmol/L (136-145) L 07/13/24 18:30 Potassium 5.0 mmol/L (3.5-5.1) 07/13/24 18:30 Chloride 96 mmol/L (98-107) L 07/13/24 18:30 Carbon Dioxide 27 mmol/L (21-32) 07/13/24 18:30 Anion Gap 10 (3-11) 07/13/24 18:30 BUN 25 mg/dl (6-23) H 07/13/24 18:30 Creatinine 1.19 mg/dl (0.6-1.4) 07/13/24 18:30 Est Cr Clr Drug Dosing 122.8 ml/min 07/13/24 18:30 Est GFR ( Amer) 82.1 ml/min 07/13/24 18:30 Est GFR (Non-Af Amer) 70.8 ml/min 07/13/24 18:30 BUN/Creatinine Ratio 21.0 (10-20) H 07/13/24 18:30 Glucose 507 mg/dl (70-99(Fasting)) H* 07/13/24 18:30 POC Glucose 278 mg/dl (70-99) H 07/13/24 23:33 Calcium 9.0 mg/dl (8.6-10.3) 07/13/24 18:30 Magnesium 1.6 mg/dl (1.7-2.4) L 07/13/24 18:30 Troponin I High Sens 8.4 pg/ml (0-20) 07/13/24 18:30 B-Natriuretic Peptide 70 pg/ml (0-100) 07/13/24 18:30 Lipase 29 U/L (11-82) 07/13/24 18:30 Urine Color Yellow 07/13/24 18:45 Urine Appearance Clear (Clear) 07/13/24 18:45 Urine pH 5.5 (4.5-7.5) 07/13/24 18:45 Ur Specific [place] 1.020 (1.000-1.030) 07/13/24 18:45 Urine Protein Trace (Negative) H 07/13/24 18:45 Urine Glucose (UA) 3+ (Negative) H 07/13/24 18:45 Urine Ketones Negative (Negative) 07/13/24 18:45 Urine Blood Negative (Negative) 07/13/24 18:45 Urine Nitrite Negative (Negative) 07/13/24 18:45 Urine Bilirubin Negative (Negative) 07/13/24 18:45 Urine Urobilinogen Negative (Negative) 07/13/24 18:45 Ur Leukocyte Esterase Negative (Negative) 07/13/24 18:45 Urine WBC (Auto) 0-5 /hpf (0-5) 07/13/24 18:45 Urine RBC (Auto) 0-2 /hpf (0-2) 07/13/24 18:45 U Hyaline Cast (Auto) 0-2 /lpf (0-2) 07/13/24 18:45 U Epithel Cells (Auto) 0-2 /hpf (0-2) 07/13/24 18:45 Urine Bacteria (Auto) None Seen (None Seen) 07/13/24 18:45 Impressions Chest X-Ray 07/13/24 18:38 SINGLE VIEW CHEST CLINICAL HISTORY: Atypical chest pain FINDINGS: An AP, portable, upright chest radiograph is compared to study dated 12/23/2023 and correlated with chest CT dated 09/19/2023. The examination is degraded by portable technique and apical lordotic positioning. The cardiomediastinal silhouette is top normal for projection. The lungs and pleural spaces are clear noting mild dependent atelectasis. No pneumothorax is seen. The bony thorax is grossly intact. IMPRESSION: No active disease in the chest. ACT 112: Negative or not required by law. Electronically signed by: Jaydon Wallace M.D. 07/13/2024 10:22 PM Chest CTA 07/13/24 20:25 Exam(s): CTA CHEST IV Amt: 119ml optiray 320 EXAM: CT Angiography Chest With Intravenous Contrast CLINICAL HISTORY: Shortness of breath. Lower extremity swelling. Evaluate for pulmonary embolism. TECHNIQUE: Axial computed tomographic angiography images of the chest with intravenous contrast. CTDI is 28.14 mGy and DLP is 2153.11 mGy-cm. Automated exposure control was utilized for the study. A dose lowering technique was utilized adhering to the principles of ALARA. MIP reconstructed images were created and reviewed. COMPARISON: CTA chest dated 09/19/2023 FINDINGS: Artifacts: Scatter artifact likely related to patient's body habitus. Limitations: There is respiratory artifact, which degrades image quality on multiple image slices. Pulmonary arteries: Accounting for limitations with respiratory artifact, there is no evidence for pulmonary embolism. Several distal subsegmental pulmonary artery segments are of nondiagnostic quality. Aorta: The thoracic aorta is normal in caliber. No dissection or aneurysm. Lungs: Expiratory lung volumes. No definite focal airspace consolidation, accounting for limitations with respiratory artifact. Pleural space: Unremarkable. No significant effusion. No pneumothorax. Heart: The cardiac chambers are mildly prominent. At least moderate coronary artery calcification noted. No pericardial effusion. Bones/joints: No acute fracture. No dislocation. Soft tissues: Unremarkable. Lymph nodes: Unremarkable. No enlarged lymph nodes. IMPRESSION: 1. Accounting for limitations with respiratory artifact, there is no evidence for pulmonary embolism. Several distal subsegmental pulmonary artery segments are of nondiagnostic quality. 2. Expiratory lung volumes. No definite focal airspace consolidation, accounting for limitations with respiratory artifact. No pleural effusion or pneumothorax. Electronically signed by: Elmer Jose MD 07/13/24 21:[address] abdomen pelvis: 1 no evidence for focal high-grade bowel obstruction. No obvious significant asymmetric bowel mucosal abnormality, accounting for lack of IV contrast and respiratory artifact. There is some retained material in distal small bowel loops in the right lower quadrant. This is a nonspecific finding and may represent normal variation. However, this raises a suspicion for subtle enteritis with delayed transit through the small bowel. Mild stool burden. No appreciable diverticulitis. No free intraperitoneal fluid or pneumoperitoneum. 2. Diffuse soft tissue edema suggesting anasarca. Diagnostic Findings EKG as per my interpretation :Rate 100, NSR, normal axis, incomplete RBBB, no ischemia
--- NOTE | 2024-07-13 23:57 | CT Scan Report ---
Exam(s): CT ABDOMEN + PELVIS Without Contrast EXAM: CT Abdomen and Pelvis Without Intravenous Contrast CLINICAL HISTORY: abd pain. TECHNIQUE: Axial computed tomography images of the abdomen and pelvis without intravenous contrast. CTDI is 28.14 mGy and DLP is 1612.4 mGy-cm. Automated exposure control was utilized for the study. A dose lowering technique was utilized adhering to the principles of ALARA. COMPARISON: No relevant prior studies available. FINDINGS: Limitations: There is respiratory artifact, which degrades image quality on multiple image slices. Lung bases: Unremarkable. No mass. No consolidation. ABDOMEN: Liver: Unremarkable. Gallbladder and bile ducts: Unremarkable. No calcified stones. No ductal dilation. Pancreas: Unremarkable. No ductal dilation. Spleen: Unremarkable. No splenomegaly. Adrenals: Unremarkable. No mass. Kidneys and ureters: There is excreted contrast in the renal collecting systems and intermittently throughout the ureters. No obstructing stones. No hydronephrosis. Stomach and bowel: Mild distention the stomach with retained oral contents. No significant gastric mucosal thickening. No evidence for focal high-grade bowel obstruction. No obvious significant asymmetric bowel mucosal abnormality, accounting for lack of IV contrast and respiratory artifact. There is some retained material in distal small bowel loops in the right lower quadrant. Mild stool burden. No appreciable diverticulitis. PELVIS: Appendix: Status post appendectomy. Bladder: The bladder is predominantly decompressed with diffuse prominent bladder wall thickening. Evaluation for bladder stones is limited by excreted contrast in the bladder. Reproductive: Unremarkable as visualized. ABDOMEN and PELVIS: Intraperitoneal space: Unremarkable. No free air. No significant fluid collection. Bones/joints: No acute fracture. No dislocation. Soft tissues: Diffuse soft tissue edema suggesting anasarca. Vasculature: Unremarkable. No abdominal aortic aneurysm. Lymph nodes: Unremarkable. No enlarged lymph nodes. IMPRESSION: 1 no evidence for focal high-grade bowel obstruction. No obvious significant asymmetric bowel mucosal abnormality, accounting for lack of IV contrast and respiratory artifact. There is some retained material in distal small bowel loops in the right lower quadrant. This is a nonspecific finding and may represent normal variation. However, this raises a suspicion for subtle enteritis with delayed transit through the small bowel. Mild stool burden. No appreciable diverticulitis. No free intraperitoneal fluid or pneumoperitoneum. 2. Diffuse soft tissue edema suggesting anasarca. Electronically signed by: Elmer Jose MD 07/13/24 23:55 PM
[2024-07-14] MEDS ORDERED: PROMETHAZINE 12.5 MG/50.5 ML BAG IV PRN (00:08)
[2024-07-14] MEDS ORDERED: GLUCAGON FOR INJ 1 MG VIAL SQ PRN (00:08)
[2024-07-14] MEDS ORDERED: GLUCOSE 40% GEL 15 GM TUBE PO PRN (00:08)
[2024-07-14] MEDS ORDERED: GLUCOSE 10 TAB/TUBE PO PRN (00:08)
[2024-07-14] MEDS ORDERED: CARBOHYDRATES FOR HYPOGLYCEMIA PO PRN (00:08)
[2024-07-14] MEDS ORDERED: DEXTROSE 50% 50 ML SYRINGE IV PRN (00:08)
--- NOTE | 2024-07-14 01:07 | Emergency Department Note ---
History of Present Illness General Chief Complaint: Shortness of Breath/Dyspnea Stated Complaint: SOB Time Seen by Provider: 07/13/24 18:37 History of Present Illness Provider Complaint: shortness of breath Onset (ago): month(s) (1) Consistency/Duration: + progressively worsening Maximum Pain Intensity: 6 Relieved By: + rest Exacerbated By: + exertion; not by lying flat Known history of: COPD Associated symptoms: + chest congestion; no chest pain, no pain with inspiration, no fever, no wheezing, no sputum production, no orthopnea, no paresthesias or no abdominal pain HPI Narrative: Patient reports increasing weight gain over the last month. Related Data Home oxygen amount: none Home Medications Medication Instructions Recorded Confirmed Type insulin aspart U-100 100 unit/mL 18 unit subcut TID 06/09/19 07/13/24 History (3 mL) subcutaneous pen (Novolog FlexPen U-100 Insulin aspart) dicyclomine 10 mg capsule 10 mg PO QID PRN Diarrhea 05/01/20 07/13/24 History famotidine 20 mg tablet 20 mg PO HS 07/13/20 07/13/24 History pantoprazole 40 mg tablet,delayed 40 mg PO BID 02/25/21 07/13/24 History release metformin 500 mg tablet 1,000 mg PO BID 08/26/21 07/13/24 History cyclobenzaprine 10 mg tablet 10 mg PO HS muscle spasms 09/06/22 07/13/24 History gabapentin 100 mg capsule See Rx Instructions .Route .COMPLEX 09/06/22 07/13/24 History insulin glargine 100 unit/mL (3 40 unit subcut BID 09/06/22 07/13/24 History mL) subcutaneous pen (Lantus Solostar U-100 Insulin) metoclopramide HCl 10 mg tablet 10 mg PO TID 09/06/22 07/13/24 History budesonide-formoterol HFA 80 2 puff inhalation BID 02/08/23 07/13/24 History mcg-4.5 mcg/actuation aerosol inhaler (Symbicort) aspirin 81 mg tablet,delayed 81 mg PO QAM #30 tabs 09/22/23 07/13/24 Rx release atorvastatin 20 mg tablet 20 mg PO QAM #30 tabs 09/22/23 07/13/24 Rx hydrochlorothiazide 25 mg tablet 25 mg PO QAM #30 tabs 09/22/23 07/13/24 Rx losartan 100 mg tablet 100 mg PO DAILY #30 tabs 09/22/23 07/13/24 Rx metoprolol succinate 100 mg 100 mg PO QAM #30 tabs 09/22/23 07/13/24 Rx tablet,extended release 24 hr (Toprol XL) metoprolol succinate 50 mg 50 mg PO QPM #30 tabs 09/22/23 07/13/24 Rx tablet,extended release 24 hr spironolactone 25 mg tablet 25 mg PO QAM #30 tabs 09/22/23 07/13/24 Rx albuterol sulfate 90 mcg/actuation 2 inh inhalation Q6H PRN 10/15/23 07/13/24 History aerosol inhaler WHEEZING/SOB ibuprofen 125 mg-acetaminophen 250 3 tab PO BID 10/15/23 07/13/24 History mg tablet (Dual Action Pain Reliever) docusate sodium 100 mg capsule 100 mg PO BID PRN Constipation #60 10/25/23 07/13/24 Rx (Col-Rite) caps polyethylene glycol 3350 17 17 g PO DAILY PRN constipation 10/26/23 07/13/24 Rx gram/dose oral powder (Miralax) #119 grams naloxegol 25 mg tablet (Movantik) 25 mg PO DAILY 07/13/24 07/13/24 History torsemide 10 mg tablet 10 mg PO DAILY 07/13/24 07/13/24 History Allergies Allergy/AdvReac Type Severity Reaction Status Date / Time cefaclor [From Ceclor] Allergy Unknown childhood Verified 07/13/24 21:47 allergy ? Cephalosporins Allergy Unknown Unknown Verified 07/13/24 21:47 empagliflozin AdvReac Unknown put me Verified 07/13/24 21:47 [From Jardiance] into ketoacidosis? 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 Garcia Morbid obesity Chronic respiratory failure with hypercapnia Diabetic peripheral neuropathy associated with type 2 diabetes mellitus Loss of protective sensation of skin of foot Epigastric abdominal pain Encounter for pre-operative examination Colon polyp Medical History Arthritis Low magnesium level History of RSV infection & flu a few months ago. Tachycardia chronic high heart rate - unknown etiology - a few months ago increased dose of metoprolol. Rhinovirus dx May 23 [facility] & another illness dx - ? name of /antibiotic and inhalers for. feeling better: only symptom : sore throat. COPD (chronic obstructive pulmonary disease) ? dx of Peripheral neuropathy Diabetes mellitus, type 2 Hypertension Tobacco use Restrictive lung disease Elevated liver function tests History of DVT (deep vein thrombosis) "years ago">no known cause Tussive syncope "occurred only one time, no recent issues" Esophagitis Osteoarthritis Hx of pancreatitis resolved GERD (gastroesophageal reflux disease) Cardiac murmur A CHILD Erectile dysfunction MRSA (methicillin resistant Staphylococcus aureus) carrier over 2 yrs ago>"not sure where it was" Intellectual disability Obstructive sleep apnea cpap Obesity IBS (irritable bowel syndrome) History of ventricular tachycardia "nonsustained" Surgical History History of appendectomy 02/10/2023 History of reduction of nasal fracture 09/25/21-Dr. Garcia Status post incision and drainage LLE History of shoulder surgery right-2019 H/O foot surgery LEFT-2018 History of arthroscopy LEFT [id number] History of esophagogastroduodenoscopy (EGD) History of colonoscopy with most recent attempt: failed prep. Told would need a 2 day prep prior to colonoscopy in Sep 2023. History of tooth extraction History of tonsillectomy and adenoidectomy 1979 Family History Brother Family history of diabetes mellitus Environmental allergies Asthma Mother Family history of diabetes mellitus Hypertension Environmental allergies Father Family history of diabetes mellitus Hypertension Heart disease Grandfather (Paternal) Lung cancer smoker Aunt Bleeding disorder Other No family history of adverse response to anesthesia Social History Smoking Status: Current every day smoker Tobacco Type: Cigarettes Age Started Using Tobacco: 14; Cigarettes Per Day: 1 pack; Second Hand Exposure: No; Do You Dip or Chew Tobacco: No; Hx Alcohol Use: Yes Alcohol type: beer Alcohol Intake Frequency: Monthly or Less Alcohol Intake Frequency Comment: seldom, a couple times per year if that per pt Hx Substance Use: No Preferred Language: [place] Communication Ability: Effective Inventory Specialist Manager Required: No Beliefs That Will Affect Care: None marital status: / marital status details: single at this time Current Living Situation: Significant Other Current Living Situation Comment: with Ni and dog, in home, 1 JING current occupational status: employed 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 other: girlfriend able to assist with dressing changes and care as needed Feels Safe at Home: Yes Diet: diabetic during the past year weight has: remained stable Assistive Devices: None Physical Exam 2 Vital Signs: Vital Signs - 24 hr 07/13/24 18:24 07/13/24 18:24 07/13/24 18:24 Temperature 37.4 C Temperature Source Oral Pulse Rate 110 H Pulse Rate [Apical ] Pulse Rate from Sp O2 Sensor Pulse Rhythm Regular Pulse Rhythm [Apic al] Pulse Strength Normal Pulse Strength [Ap ical] Respiratory Rate 24 Respiratory Effort / Characteristics Non-Labored Sponta neous Spontaneous Labore d Respiratory Depth Normal Normal Respiratory Patter n Regular Regular Blood Pressure 126/72 Blood Pressure [Le ft Arm] Blood Pressure Margaux n 90 Blood Pressure Margaux n [Left Arm] Blood Pressure Pos ition Lying Blood Pressure Pos ition [Left Arm] Pulse Oximetry 90 90 Oxygen Delivery Me thod Room Air Room Air Room Air Oxygen Flow Rate Sepsis Recent Feve r Within 48 Hours Yes Sepsis New/Unexpla ined Change in Men stefano Status No Sepsis Action Take n by Nursing No Action Required Oxygen Flow Rate - Titration Pulse Oximetry Pos t Tiitration 07/13/24 18:24 07/13/24 18:30 07/13/24 18:33 Temperature 37.4 C Temperature Source Oral Pulse Rate 100 H 99 H Pulse Rate [Apical ] 100 H Pulse Rate from Sp O2 Sensor 100 H Pulse Rhythm Pulse Rhythm [Apic al] Regular Pulse Strength Pulse Strength [Ap ical] Normal Respiratory Rate 32 H 24 Respiratory Effort / Characteristics Spontaneous Labore d Respiratory Depth Normal Respiratory Patter n Regular Blood Pressure Blood Pressure [Le ft Arm] 126/72 Blood Pressure Margaux n Blood Pressure Margaux n [Left Arm] 90 Blood Pressure Pos ition Blood Pressure Pos ition [Left Arm] Semi-fowlers Pulse Oximetry 90 90 Oxygen Delivery Me thod Room Air Room Air Oxygen Flow Rate Sepsis Recent Feve r Within 48 Hours Sepsis New/Unexpla ined Change in Men stefano Status Sepsis Action Take n by Nursing Oxygen Flow Rate - Titration Pulse Oximetry Pos t Tiitration 07/13/24 18:48 07/13/24 19:06 07/13/24 19:30 Temperature Temperature Source Pulse Rate 110 H 100 H 102 H Pulse Rate [Apical ] Pulse Rate from Sp O2 Sensor 100 H Pulse Rhythm Regular Pulse Rhythm [Apic al] Pulse Strength Pulse Strength [Ap ical] Respiratory Rate 24 26 H 24 Respiratory Effort / Characteristics Respiratory Depth Respiratory Patter n Blood Pressure 175/54 H Blood Pressure [Le ft Arm] Blood Pressure Margaux n 94 Blood Pressure Margaux n [Left Arm] Blood Pressure Pos ition Blood Pressure Pos ition [Left Arm] Pulse Oximetry 90 93 91 Oxygen Delivery Me thod Room Air Room Air Room Air Oxygen Flow Rate Sepsis Recent Feve r Within 48 Hours Sepsis New/Unexpla ined Change in Men stefano Status Sepsis Action Take n by Nursing Oxygen Flow Rate - Titration Pulse Oximetry Pos t Tiitration 07/13/24 20:00 07/13/24 20:00 07/13/24 21:00 Temperature Temperature Source Pulse Rate 100 H 98 H Pulse Rate [Apical ] 100 H Pulse Rate from Sp O2 Sensor 100 H 98 H Pulse Rhythm Pulse Rhythm [Apic al] Pulse Strength Pulse Strength [Ap ical] Respiratory Rate 17 17 21 Respiratory Effort / Characteristics Non-Labored Sponta neous Respiratory Depth Normal Respiratory Patter n Regular Blood Pressure 142/92 H 132/69 Blood Pressure [Le ft Arm] 142/92 H Blood Pressure Margaux n 108 113 Blood Pressure Margaux n [Left Arm] 108 Blood Pressure Pos ition Blood Pressure Pos ition [Left Arm] Pulse Oximetry 88 L 89 L 91 Oxygen Delivery Me thod Room Air Room Air Room Air Oxygen Flow Rate Sepsis Recent Feve r Within 48 Hours Sepsis New/Unexpla ined Change in Men stefano Status Sepsis Action Take n by Nursing Oxygen Flow Rate - Titration Pulse Oximetry Pos t Tiitration 07/13/24 21:30 07/13/24 22:00 07/13/24 22:00 Temperature Temperature Source Pulse Rate 101 H 101 H Pulse Rate [Apical ] 103 H Pulse Rate from Sp O2 Sensor 101 H 102 H Pulse Rhythm Pulse Rhythm [Apic al] Pulse Strength Pulse Strength [Ap ical] Respiratory Rate 24 20 24 Respiratory Effort / Characteristics Non-Labored Sponta neous Respiratory Depth Normal Respiratory Patter n Blood Pressure 166/85 H 191/116 H Blood Pressure [Le ft Arm] 191/116 H Blood Pressure Margaux n 155 141 Blood Pressure Margaux n [Left Arm] 141 Blood Pressure Pos ition Blood Pressure Pos ition [Left Arm] Pulse Oximetry 92 93 92 Oxygen Delivery Me thod Room Air Room Air Room Air Oxygen Flow Rate Sepsis Recent Feve r Within 48 Hours Sepsis New/Unexpla ined Change in Men stefano Status Sepsis Action Take n by Nursing Oxygen Flow Rate - Titration Pulse Oximetry Pos t Tiitration 07/13/24 22:54 07/13/24 23:24 07/13/24 23:30 Temperature Temperature Source Pulse Rate Pulse Rate [Apical ] 100 H 99 H Pulse Rate from Sp O2 Sensor 103 H Pulse Rhythm Pulse Rhythm [Apic al] Pulse Strength Pulse Strength [Ap ical] Respiratory Rate 21 22 20 Respiratory Effort / Characteristics Non-Labored Sponta neous Non-Labored Sponta neous Respiratory Depth Normal Normal Respiratory Patter n Regular Regular Blood Pressure Blood Pressure [Le ft Arm] 174/83 H 159/92 H Blood Pressure Margaux n Blood Pressure Margaux n [Left Arm] 113 114 Blood Pressure Pos ition Blood Pressure Pos ition [Left Arm] Pulse Oximetry 94 92 90 Oxygen Delivery Me thod Room Air Room Air Room Air Oxygen Flow Rate Sepsis Recent Feve r Within 48 Hours Sepsis New/Unexpla ined Change in Men stefano Status Sepsis Action Take n by Nursing Oxygen Flow Rate - Titration Pulse Oximetry Pos t Tiitration 07/13/24 23:35 Temperature Temperature Source Pulse Rate Pulse Rate [Apical ] Pulse Rate from Sp O2 Sensor Pulse Rhythm Pulse Rhythm [Apic al] Pulse Strength Pulse Strength [Ap ical] Respiratory Rate Respiratory Effort / Characteristics Respiratory Depth Respiratory Patter n Blood Pressure Blood Pressure [Le ft Arm] Blood Pressure Margaux n Blood Pressure Margaux n [Left Arm] Blood Pressure Pos ition Blood Pressure Pos ition [Left Arm] Pulse Oximetry 88 L Oxygen Delivery Me thod Nasal Cannula Oxygen Flow Rate 0 Sepsis Recent Feve r Within 48 Hours Sepsis New/Unexpla ined Change in Men stefano Status Sepsis Action Take n by Nursing Oxygen Flow Rate - Titration 2 Pulse Oximetry Pos t Tiitration 94 Physical Exam: Physical Exam GENERAL: He is oriented to person, place, and time. He appears well-developed and well-nourished. He does not appear distressed. HENT: Exam performed. - Head: Normocephalic and atraumatic. - Right Ear: External ear normal. No mastoid erythema - Left Ear: External ear normal. No mastoid erythema - Mouth/Throat: The oropharynx is clear and moist. No trismus in the jaw. No dental abscesses or uvula swelling. No oropharyngeal exudate or tonsillar abscesses. EYES: Conjunctivae and EOM are normal. Pupils are equal, round, and reactive to light. Right eye exhibits no discharge. Left eye exhibits no discharge. No scleral icterus. NECK: Normal range of motion. Neck supple. No JVD present. CV: Normal rate, regular rhythm, normal heart sounds and intact distal pulses. There is no peripheral edema. Palpable radial pulses bue. PULM/CHEST: Diminished breath sounds bilaterally. ABD: The abdomen is soft and obese. There is no tenderness. There is no rebound, no guarding. MUSC/SKEL: Left-sided BKA. NEURO: He is alert and oriented to person, place, and time. He has normal strength. No cranial nerve deficit or sensory deficit. Coordination and gait normal. GCS eye subscore is 4. GCS verbal subscore is 5. GCS motor subscore is 6. Cerebellar tests wnl. SKIN: Skin is warm and dry. He is not diaphoretic. PSYCH: He has a normal mood and affect. Behavior is normal. Judgment and thought content normal. Course Course 1837: The patient was evaluated in room B9. A complete history and physical exam was performed Cardiac monitoring: An order was placed for continuous cardiac monitoring. The monitor shows a rate of 100 with sinus rhythm interpreted by me 2137: Vital signs stable. Labs are unremarkable with a normal troponin VBG BNP. CTA of the chest negative for PE. Bedside ultrasound showed no abdominal ascites. Patient will be admitted to the [facility] team. Administered Medications Discontinued Medications Albumin Human (Albumin 25%) 25 gm in 100 mls @ 50 mls/hr IV ONE ONE Stop: 07/13/24 23:59 Last Admin: 07/14/24 01:03 Dose: 50 mls/hr Documented By: VIKKI Insulin Human Regular (Novolin-R Insulin Per Unit Charge) 10 units IV NOW STA Stop: 07/13/24 21:45 Last Admin: 07/13/24 22:15 Dose: 10 units Documented By: VIKKI Co-signed By: TAN Ioversol (Optiray 320 125ml) 119 ml IV ONCE ONE Stop: 07/13/24 21:02 Last Admin: 07/13/24 21:01 Dose: 119 ml Documented By: LOUIS Metoprolol Tartrate (Metoprolol Tartrate 1 Mg/Ml Vial) 2.5 mg IV NOW STA Stop: 07/13/24 22:02 Last Admin: 07/14/24 01:00 Dose: Not Given Documented By: VIKKI Medical Decision Making Laboratory Data Attestation: I reviewed the patient's lab results. 07/13/24 18:30 07/13/24 18:30 Lab Results 07/13/24 07/13/24 07/13/24 Range/Units 18:30 18:45 19:07 WBC 6.79 (4.8-10.8) K/ul RBC 4.08 L (4.70-6.10) M/uL Hgb 10.9 L (14.0-18.0) g/dl Hct 34.2 L (42.0-52.0) % MCV 83.8 (80.0-100.0) fL MCH 26.7 (25.0-34.0) pg MCHC 31.9 L (32.0-36.0) g/dL RDW Std Deviation 45.4 (36.4-46.3) fL RDW Coeff of Abiodun 14.9 H (11.5-14.5) % Plt Count 234 (130-400) K/uL MPV 9.7 (9.4-12.4) fL Immature Gran % (Auto) 2.2 % Neut % (Auto) 55.1 % Lymph % (Auto) 25.6 % [place] % (Auto) 10.8 % Eos % (Auto) 5.4 % Baso % (Auto) 0.9 % Neut # (Auto) 3.74 (1.40-6.50) K/uL Lymph # (Auto) 1.74 (1.20-3.40) K/uL [place] # (Auto) 0.73 H (0.11-0.59) K/uL Eos # (Auto) 0.37 (0.00-0.50) K/uL Baso # (Auto) 0.06 (0.00-0.20) K/uL Immature Gran # (Auto) 0.15 (0.01-0.20) K/uL PT 10.0 (9.0-12.0) Seconds INR 0.9 (0.9-1.1) APTT 27 (21-31) Seconds PTT Ratio 1.0 VBG pH 7.40 (7.36-7.41) VBG pCO2 51 H (38-50) mmHg VBG pO2 55 mmHg VBG HCO3 32 mmol/L VBG O2 Saturation 89.8 % VBG Base Excess 5.5 mEq/L Sodium 133 L (136-145) mmol/L Potassium 5.0 (3.5-5.1) mmol/L Chloride 96 L (98-107) mmol/L Carbon Dioxide 27 (21-32) mmol/L Anion Gap 10 (3-11) BUN 25 H (6-23) mg/dl Creatinine 1.19 (0.6-1.4) mg/dl Est Cr Clr Drug Dosing 122.8 ml/min Est GFR ( Amer) 82.1 ml/min Est GFR (Non-Af Amer) 70.8 ml/min BUN/Creatinine Ratio 21.0 H (10-20) Glucose 507 H* (70-99(Fasting)) mg/dl POC Glucose (70-99) mg/dl Calcium 9.0 (8.6-10.3) mg/dl Magnesium 1.6 L (1.7-2.4) mg/dl Troponin I High Sens 8.4 (0-20) pg/ml B-Natriuretic Peptide 70 (0-100) pg/ml Lipase 29 (11-82) U/L Urine Color Yellow Urine Appearance Clear (Clear) Urine pH 5.5 (4.5-7.5) Ur Specific [place] 1.020 (1.000-1.030) Urine Protein Trace H (Negative) Urine Glucose (UA) 3+ H (Negative) Urine Ketones Negative (Negative) Urine Blood Negative (Negative) Urine Nitrite Negative (Negative) Urine Bilirubin Negative (Negative) Urine Urobilinogen Negative (Negative) Ur Leukocyte Esterase Negative (Negative) Urine WBC (Auto) 0-5 (0-5) /hpf Urine RBC (Auto) 0-2 (0-2) /hpf U Hyaline Cast (Auto) 0-2 (0-2) /lpf U Epithel Cells (Auto) 0-2 (0-2) /hpf Urine Bacteria (Auto) None Seen (None Seen) 07/13/24 07/13/24 Range/Units 22:03 23:33 WBC (4.8-10.8) K/ul RBC (4.70-6.10) M/uL Hgb (14.0-18.0) g/dl Hct (42.0-52.0) % MCV (80.0-100.0) fL MCH (25.0-34.0) pg MCHC (32.0-36.0) g/dL RDW Std Deviation (36.4-46.3) fL RDW Coeff of Abiodun (11.5-14.5) % Plt Count (130-400) K/uL MPV (9.4-12.4) fL Immature Gran % (Auto) % Neut % (Auto) % Lymph % (Auto) % [place] % (Auto) % Eos % (Auto) % Baso % (Auto) % Neut # (Auto) (1.40-6.50) K/uL Lymph # (Auto) (1.20-3.40) K/uL [place] # (Auto) (0.11-0.59) K/uL Eos # (Auto) (0.00-0.50) K/uL Baso # (Auto) (0.00-0.20) K/uL Immature Gran # (Auto) (0.01-0.20) K/uL PT (9.0-12.0) Seconds INR (0.9-1.1) APTT (21-31) Seconds PTT Ratio VBG pH (7.36-7.41) VBG pCO2 (38-50) mmHg VBG pO2 mmHg VBG HCO3 mmol/L VBG O2 Saturation % VBG Base Excess mEq/L Sodium (136-145) mmol/L Potassium (3.5-5.1) mmol/L Chloride (98-107) mmol/L Carbon Dioxide (21-32) mmol/L Anion Gap (3-11) BUN (6-23) mg/dl Creatinine (0.6-1.4) mg/dl Est Cr Clr Drug Dosing ml/min Est GFR ( Amer) ml/min Est GFR (Non-Af Amer) ml/min BUN/Creatinine Ratio (10-20) Glucose (70-99(Fasting)) mg/dl POC Glucose 339 H* 278 H (70-99) mg/dl Calcium (8.6-10.3) mg/dl Magnesium (1.7-2.4) mg/dl Troponin I High Sens (0-20) pg/ml B-Natriuretic Peptide (0-100) pg/ml Lipase (11-82) U/L Urine Color Urine Appearance (Clear) Urine pH (4.5-7.5) Ur Specific [place] (1.000-1.030) Urine Protein (Negative) Urine Glucose (UA) (Negative) Urine Ketones (Negative) Urine Blood (Negative) Urine Nitrite (Negative) Urine Bilirubin (Negative) Urine Urobilinogen (Negative) Ur Leukocyte Esterase (Negative) Urine WBC (Auto) (0-5) /hpf Urine RBC (Auto) (0-2) /hpf U Hyaline Cast (Auto) (0-2) /lpf U Epithel Cells (Auto) (0-2) /hpf Urine Bacteria (Auto) (None Seen) Imaging Data Attestation: I personally reviewed and interpreted this imaging study as follows: My Impression: Chest x-ray negative. Airway clear. No pneumothorax. No consolidation. No cardiomegaly or cephalization.. No free air under the diaphragm. No fractures of the skeletal structures. Radiologist's Impression: SINGLE VIEW CHEST CLINICAL HISTORY: Atypical chest pain FINDINGS: An AP, portable, upright chest radiograph is compared to study dated 12/23/2023 and correlated with chest CT dated 09/19/2023. The examination is degraded by portable technique and apical lordotic positioning. The cardiomediastinal silhouette is top normal for projection. The lungs and pleural spaces are clear noting mild dependent atelectasis. No pneumothorax is seen. The bony thorax is grossly intact. IMPRESSION: No active disease in the chest. ACT 112: Negative or not required by law. Electronically signed by: Jaydon Wallace M.D. 07/13/2024 10:22 PM Dictated: 07/13/[id number] Transcribed: 07/13/[id number] Exam(s): CTA CHEST IV Amt: 119ml optiray 320 EXAM: CT Angiography Chest With Intravenous Contrast CLINICAL HISTORY: Shortness of breath. Lower extremity swelling. Evaluate for pulmonary embolism. TECHNIQUE: Axial computed tomographic angiography images of the chest with intravenous contrast. CTDI is 28.14 mGy and DLP is 2153.11 mGy-cm. Automated exposure control was utilized for the study. A dose lowering technique was utilized adhering to the principles of ALARA. MIP reconstructed images were created and reviewed. COMPARISON: CTA chest dated 09/19/2023 FINDINGS: Artifacts: Scatter artifact likely related to patient's body habitus. Limitations: There is respiratory artifact, which degrades image quality on multiple image slices. Pulmonary arteries: Accounting for limitations with respiratory artifact, there is no evidence for pulmonary embolism. Several distal subsegmental pulmonary artery segments are of nondiagnostic quality. Aorta: The thoracic aorta is normal in caliber. No dissection or aneurysm. Lungs: Expiratory lung volumes. No definite focal airspace consolidation, accounting for limitations with respiratory artifact. Pleural space: Unremarkable. No significant effusion. No pneumothorax. Heart: The cardiac chambers are mildly prominent. At least moderate coronary artery calcification noted. No pericardial effusion. Bones/joints: No acute fracture. No dislocation. Soft tissues: Unremarkable. Lymph nodes: Unremarkable. No enlarged lymph nodes. IMPRESSION: 1. Accounting for limitations with respiratory artifact, there is no evidence for pulmonary embolism. Several distal subsegmental pulmonary artery segments are of nondiagnostic quality. 2. Expiratory lung volumes. No definite focal airspace consolidation, accounting for limitations with respiratory artifact. No pleural effusion or pneumothorax. Electronically signed by: Elmer Jose MD 07/13/24 21:27 PM Dictated: [id number] Transcribed: 07/13/[id number] ECG Data Attestation: I personally reviewed and interpreted this ECG as follows: Interpretation: Sinus rhythm with rate 100. DC QRS and QTc intervals within normal limits. No ST elevation or ST depression. [facility] Narrative 1837: The patient was evaluated in room B9. A complete history and physical exam was performed Cardiac monitoring: An order was placed for continuous cardiac monitoring. The monitor shows a rate of 100 with sinus rhythm interpreted by me 2137: Vital signs stable. Labs are unremarkable with a normal troponin VBG BNP. CTA of the chest negative for PE. Bedside ultrasound showed no abdominal ascites. Patient will be admitted to the [facility] team. Impression & Plan Shortness of breath Discharge Plan Visit Data Chief Complaint: Shortness of Breath/Dyspnea Stated Complaint: SOB ED Provider: Roosevelt Christianson Discharge Problem: Shortness of breath Patient Disposition: Admitted As Inpatient Discharge Instructions Interventions: ED Discharge Assessment Last Done: 07/14/24 00:44
[2024-07-14] MEDS: METOPROLOL SUCC 50MG EXT REL TAB PO SCH ×3 (02:07→21:25)
[2024-07-14] MEDS: GABAPENTIN 100 MG CAP PO SCH ×2 (02:08→09:27)
[2024-07-14] MEDS: oxyCODONE HCL IR 5 MG TAB (IMMEDIATE RELEASE) PO STA (02:09)
[2024-07-14] MEDS: FUROSEMIDE 40 MG/4 ML VIAL IV ONE ×2 (02:20→09:22)
[2024-07-14] MEDS: INSULIN ASPART PER UNIT CHARGE SC SCH (03:42)
[2024-07-14] MEDS: LANTUS PER UNIT CHARGE SQ SCH ×2 (03:42→09:23)
[2024-07-14] MEDS: MAGNESIUM SULFATE / D5W 1 GM/100 ML BAG IV ONE (03:43)
--- OUTSIDE RECORDS SUMMARY | 2024-07-14 04:33 | External Medical Summary | Summary of Care ---
Author Name Unknown Organization [facility] Address [address] [place] [address] Phone [phone] Care Team Providers Care Seasonal Clerk Name Role Phone Velasquez Valencia MD Primary Care Provider [phone] Reason for Referral * Evaluate & Treat - Unlimited Visits (Within 10 days (routine)) - Authorized Specialty Diagnoses / Procedures Referred By Bismark brown Referred To Contact Physical Therapy / Physical Medicine And Rehab Diagnoses Primary osteoarthritis of right knee Patellar tendinitis of right knee Augie Dejesus PA-C [address] [place] [address] Referral ID Status Reason Start Date Expiration Date Visits Requested Visits Authorized [id number] Authorized Specialty Services Required 07/04/2024 [id number] Question Answer Referral Priority Within 10 days (routine) Where should this appointment be scheduled? [facility] Reason for Visit * Reason Comments NEW PATIENT R knee Knee Pain * Evaluate & Treat - Unlimited Visits (Within 30 days (routine)) - Authorized Specialty Diagnoses / Procedures Referred By Bismark brown Referred To Contact Orthopaedic Surgery / Orthopedics Diagnoses Chronic pain of right knee Velasquez Valencia MD [address] [place] [phone] Referral ID Status Reason Start Date Expiration Date Visits Requested Visits Authorized [id number] Authorized Specialty Services Required 06/29/2024 [id number] Encounter Details Date Type Department Care Team (Latest Contact Info) Description 07/04/2024 12:30 PM EDT Office Visit Orthopaedics [facility] [address] [place] [address] Augie Dejesus PA-C [address] [place] [address] Primary osteoarthritis of right knee*; Patellar tendinitis of right knee Allergies Active Allergy Reactions Criticality Noted Date Comments Cefaclor Unknown 07/26/2018 As child Empagliflozin Other (Please comment) 05/16/2021 DKA with hospitalization Nsaids High 04/19/2019 Gastric problems Other Reaction(s): gastroparesis, kidney problems, use with caution : hx esophagus damage documented as of this encounter (statuses as of 07/12/2024) Medications Medication Sig Dispensed Refills Start Date End Date Status Albuterol Sulfate HFA 108 (90 Base) MCG/ACT Inhalation Aerosol SolutionIndication s:RSV bronchitis inhale 2 puffs by mouth and INTO THE LUNGS every 6 hours if needed for cough shortness of breath or WITHDRAWAL SYMPTOMS 54 g 3 10/29/2022 Active Losartan Potassium 100 MG Oral Tablet (Cozaar) Take 1 Tablet by mouth in the morning. 90 Tablet 3 10/07/2023 Active Metamucil 0.52 GM Oral Capsule (Psyllium) Take 1 Capsule by mouth in the morning and 1 Capsule at noon and 1 Capsule before bedtime. 30 Capsule 11/05/2023 Active Polyethylene Glycol 3350 17 GM Oral Packet (Miralax) Mix 1 Packet in 4 to 8 ounces of any beverage and drink by mouth in the morning. 14 Each 11/06/2023 Active Ondansetron HCl 4 MG Oral Tablet Take 1 Tablet by mouth every 8 hours as needed for Nausea. 20 Tablet 11/05/2023 Active Spironolactone 25 MG Oral Tablet (Aldactone) Take 1 Tablet by mouth in the morning. 90 Tablet 3 11/08/2023 Active Aspirin 81 MG Oral Tablet Delayed Release Take 1 Tablet by mouth in the morning. 90 Tablet 3 11/08/2023 Active Metoprolol Succinate ER 100 MG Oral Tablet Extended Release 24 Hour (toPROL XL)Indications:HTN , goal below 140/90 Take 1 tab by mouth twice per day 180 Tablet 3 12/29/2023 Active Toujeo SoloStar 300 UNIT/ML Subcutaneous Solution Pen-injector (Insulin Glargine (1 Unit Dial))Indications: Type 2 diabetes mellitus with hemoglobin A1c goal of less than 7.0% (HCC) Inject 40 units twice daily- this replaces lantus 54 mL 4 01/19/2024 Active BD Pen Needle Short U/F 31G X 8 MM (Insulin Pen Needle)Indications :Type 2 diabetes mellitus with hemoglobin A1c goal of less than 7.0% (HCC) Use to inject insulin 5 times daily 500 Each 3 01/19/2024 Active Insulin Aspart FlexPen 100 UNIT/ML Subcutaneous Solution Pen-injectorIndica tions:Type 2 diabetes mellitus with hemoglobin A1c goal of less than 7.0% (HCC) Inject 32 units with breakfast 22 units with lunch and 22 units with supper plus CF of 1:12 over 150. Max daily dose of 115 units 120 mL 4 02/16/2024 Active Additional Information Patient taking differently: 34units with breakfast, and 22 units with lunch and 24 units with supper + 10 units with snacks + CF of 1:10 over 140 [see chart at bottom of [facility] visit 05/09/24], Reported on 05/09/2024 Pioglitazone HCl 45 MG Oral Tablet (Actos)Indications :Type 2 diabetes mellitus with hemoglobin A1c goal of less than 7.0% (HCC) Take 1 Tablet by mouth in the morning. Please fill in about a month- patient is going to be using up his current supply of 15 mg and 30 mg tablets. 90 Tablet 4 02/16/2024 Active traMADol HCl 50 MG Oral Tablet (Ultram)Indication s:Abdominal pain, epigastric Take 1 Tablet by mouth every 6 hours as needed for Pain, Severe. 40 Tablet 02/22/2024 Active hydroCHLOROthiazid e 25 MG Oral Tablet (Hydrodiuril) Take 1 Tablet by mouth in the morning. 09/22/2023 Active Lidocaine 4 % External Patch (Aspercreme) Place 1 Patch over 12 hours topically on the skin in the morning. 30 Patch 04/14/2024 Active Metoclopramide HCl 10 MG Oral Tablet (Reglan) take 1 tablet by mouth three times a day 30 MINUTES before MEALS 270 Tablet 1 04/13/2024 Active traMADol HCl 50 MG Oral Tablet (Ultram)Indication s:Abdominal pain, generalized,Phanto m limb pain (HCC) Take 1 Tablet by mouth every 6 hours as needed for Pain, Severe. Take 1-2 tabs by mouth every 6 hours as needed for severe pain in want to do it due 8 it has been 80 Tablet 04/14/2024 Active Alum & Mag Hydroxide-Simeth 400-400-40 MG/5ML Oral Suspension (Mi-Acid II)Indications:Con stipation, unspecified constipation type Take 15 ml every 6 hours as needed for constipation 355 mL 3 04/21/2024 Active Additional Information Patient not taking.Reported on 06/20/2024 Polyethylene Glycol 3350 17 GM/SCOOP Oral Powder (Miralax) Take 1 scoop daily in 8 ounces of water. 510 g 5 04/21/2024 Active Dicyclomine HCl 10 MG Oral Capsule (Bentyl) TAKE 1 CAPSULE BY MOUTH FOUR TIMES DAILY 360 Capsule 04/26/2024 Active Atorvastatin Calcium 20 MG Oral Tablet (Lipitor) Take 1 Tablet by mouth in the morning. 90 Tablet 3 04/28/2024 Active OneTouch Verio In Vitro Strip (Glucose Blood)Indications: Type 2 diabetes mellitus with hemoglobin A1c goal of less than 7.0% ([facility]) Use to check blood sugar once daily as needed 100 Strip 05/09/2024 Active OneTouch Delica Lancets 33GIndications:Typ e 2 diabetes mellitus with hemoglobin A1c goal of less than 7.0% ([facility]) Use to check blood sugars once daily as needed 100 Each 05/09/2024 Active Movantik 25 MG Oral Tablet (Naloxegol Oxalate) take 1 tablet by mouth in the morning 30 Tablet 5 05/24/2024 Active Gabapentin 100 MG Oral Capsule (Neurontin)Indicat ions:Neuropathy TAKE 2 CAPSULES BY MOUTH EVERY 12 HOURS 120 Capsule 3 05/31/2024 Active Cyclobenzaprine HCl 10 MG Oral Tablet (Flexeril)Indicati ons:Lumbar disc herniation TAKE 1 TABLET BY MOUTH AT BEDTIME ONLY NEEDED 30 Tablet 06/14/2024 Active oxyCODONE HCl 5 MG Oral Tablet (Oxy IR)Indications:Lum bar disc herniation Take 1 Tablet by mouth every 8 hours as needed for Pain, Severe. 20 Tablet 06/20/2024 Active Torsemide 10 MG Oral Tablet (Demadex) Take 1 Tablet by mouth in the morning. 30 Tablet 5 06/20/2024 Active metFORMIN HCl 500 MG Oral Tablet (Glucophage)Indica tions:Type 2 diabetes mellitus with hemoglobin A1c goal of less than 7.0% (HCC) Take 2 Tablets by mouth in the morning and 2 Tablets in the evening. 360 Tablet 3 07/03/2024 Active Pantoprazole Sodium 40 MG Oral Tablet Delayed Release (Protonix) TAKE 1 TABLET BY MOUTH TWICE A DAY 180 Tablet 3 07/03/2024 Active Famotidine 20 MG Oral Tablet (Pepcid) TAKE ONE TABLET BY MOUTH NIGHTLY AT BEDTIME 90 Tablet 3 07/03/2024 Active documented as of this encounter (statuses as of 07/12/2024) Active Problems Problem Noted Date Diagnosed Date Hx of BKA, left 04/27/2024 History of pancreatitis 04/12/2024 History of diabetic ulcer of foot 12/12/2023 Constipation 10/27/2023 Cortical age-related cataract, right eye 023 COPD, moderate 05/25/2023 Restrictive lung disease secondary to obesity Obstructive sleep apnea 11/02/2022 Lumbar disc herniation 10/20/2022 Chronic respiratory failure with hypercapnia DM type 2 causing vascular disease 10/23/2021 Gastroesophageal reflux disease without esophagi tis 05/07/2020 DDD (degenerative disc disease), cervical 2018 Cervical spinal stenosis 07/12/2019 History of DVT (deep vein thrombosis) 04/19/2019 Tobacco use disorder 12/22/2016 Diabetic polyneuropathy asso ciated with type 2 diabetes mellitus 07/24/2016 Hyperlipidemia with target LDL less than 70 04/2016 Gastroparesis 08/27/2015 IBS (irritable bowel syndrome) 08/27/2015 Type 2 diabetes mellitus wit h hemoglobin A1c goal of less than 7.0% 08/01/2009 Overview: Modified per Diabetes protocol #14. ICD-10 update of inactive term Morbid obesity 12/15/2002 Overview: Per Obesity Taxonomy documented as of this encounter (statuses as of 07/12/2024) Resolved Problems Problem Noted Date Diagnosed Date Resolved Date S/P hardware removal 03/03/2024 024 Ankle wound, left, initial encounter 03/03/2024 05/24/2024 Cellulitis of left lower extremity 03/03/2024 05/24/2024 Acute pancreatitis 12/12/2023 Thrush 12/12/2023 01/14/2024 Fall 11/01/2023 05/24/2024 Hypertensive emergency 10/30/202305/24 Elevated troponin 10/30/2023 05/24/2024 Sepsis 10/28/2023 01/14/2024 Nausea and vomiting 10/27/2023 05/24/20 24 Abdominal pain, generalized 10/27/2023 05/24/2024 Charcot ankle, left 10/27/2023 05/24/20 24 S/P ankle fusion 10/27/2023 05/24/2024 Intractable nausea and vomiting 10/27/2023 05/24/2024 Positive D dimer 10/27/2023 10/30/2023 Lactic acidosis 10/27/2023 10/30/2023 Neuropathy 02/24/2023 05/24/2024 Body mass index (BMI) of 40. 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 . HTN, goal below 140/90 12/15/200211/14 Overview: Per HTN Taxonomy. LOC PRIM OSTEOARTH- right ANKLE 07/18/2002 04/22/2017 Tobacco use disorder 02/03/2001 016 DM type 2, not at goal 08/01 Overview: Modified per Diabetes protocol #14. OTHER 04/22/2017 Overview: osseochondrosis ankle Primary localized osteoarthrosis, lower leg 10/15/2017 documented as of this encounter (statuses as of 07/12/2024) Immunizations Name Administration Dates Next Due COVID-19 mRNA, LNP-s, No Pre serve, 2-Dose Series (Novapost) 10/21/2021,03/01/2021,02/07/2021 H1N1 2009 Influenza, IM 11/04/2009 Pneumococcal Conjugate Vacci ne, 20-valent (Cynyrah11) 07/09/2023 Pneumococcal Polysaccharide PPV23 (Pneumovax) 11/03/2015,02/09/2006 Seasonal Influenza, PF, 6 M & above, IM , (FluLaval or Fluzone) 07/09/2023,10/16/2022,07/31/2021,09/16,07/12/2019,07/05/2018 Seasonal Influenza, Quadriva lent, No Preserve, IM 05/24/2017,07/24/2016 Seasonal Influenza, Trivalen t, (IIV3), PF, (Fluzone) 07/04/2024 Seasonal Influenza, Trivalen t, (IIV3), with Preserv, (Fluzone) 06/27/2015,07/07/2010,09/02/2009,10/26,08/22/2003 TDAP (age 10 and older)(Boostrix) 05/01/2018 documented as of this encounter Social History Tobacco Use Types Packs/Day Years Used Date Smoking Tobacco: Every Day Cigarettes 1.5 33 Smokeless Tobacco: Never Alcohol Use Standard Drinks/Week Comments Not Currently 0 (1 standard drink = 0.6 oz pur e alcohol) 1 beer in the past two years AUDIT-C Answer Date Recorded Frequency of Alcohol Consumption Never 05/24/2019 Average Number of Drinks Not on file 019 Frequency of Binge Drinking Not on file 04/2019 PHQ-2 Answer Date Recorded PHQ Adult Total Score 0 01/14/2024 Hunger Vital Sign Answer Date Recorded Within the past 12 months, y ou worried that your food would run out before you got the money to buy more. Never true 04/19/20 24 Within the past 12 months, t he food you bought just didn't last and you didn't have money to get more. Never true 04/19/2024 Childcare Answer Date Recorded Do you feel overwhelmed with taking care of a child, family member or friend? No 04/19/2024 Does your family need help f inding childcare? (Household - for ages 0-17 years) Not on file 04/19/2024 Clothing Answer Date Recorded Have you been unable to get clothing when it was really needed? No 04/19/2024 Is your family able to get c lothes or diapers when needed? (Household - for ages 0-17 years) Not on file 04/19/2024 Personal Safety Answer Date Recorded Do you feel unsafe or have concerns for your saf ety? No 04/19/2024 Do you have concerns for you r family's safety? (Household - for ages 0-17 years) Not on file 04/19/2024 Utilities Answer Date Recorded Do you have trouble paying y our heating, water, or electric bill? No 04/19/2024 Is your family able to pay t he heat, water, or electric bill? (Household - for ages 0-17 years) Not on file 04/19/2024 Does your family have access to good internet? (Household - for ages 0-17 years) Not on file 04/19/2024 Employment Status Answer Date Recorded Are you unemployed or without regular income? No 04/19/2024 Does the household have a re gular source of income? (Household - for ages 0-17 years) Not on file 04/19/2024 Social Connections Answer Date Recorded How often do you feel lonely or isolated from th ose around you? Never 04/19/2024 Financial Resource Strain Answer Date R ecorded Do you have any trouble payi ng for your medications, or do you think you might in the future? No 04/19/2024 Does your family have troubl e paying for medicine? (Household - for ages 0-17 years) Not on file 04/19/2024 Transportation Needs Answer Date Record ed READ ONLY Do you have troubl e getting a ride to medical visits or work? Never True 04/19/2024 Does your family have a hard time getting a ride to doctors visits? (Household - for ages 0-17 years) Not on file 04/19/2024 Has lack of transportation k ept you from medical appointments, meetings, work, or from getting things needed for daily living? Check all that apply. No 04/19/2024 Do you (or your family) have trouble finding or paying for a ride (transportation)? (Household - for ages 0-17 years) Not on file 04/19/2024 Housing Stability Answer Date Recorded Do you currently live in a s helter or have no steady place to sleep at night? No 04/19/2024 READ ONLY Do you think you a re at risk of becoming homeless? No 04/19/2024 Does your family worry about paying for your home or becoming homeless? (Household - for ages 0-17 years) Not on file 0 04/19/2024 Are you homeless or worried that you might be in the future? No 04/19/2024 Are you (or your family) juan eless or worried that you might be in the future? (Household - for ages 0-17 years) Not on file Food Insecurity Answer Date Recorded Do you need food for this week? No 04/19/2024 Are you able to get enough f ood for your family? (Household - for ages 0-17 years) Not on file 04/19/2024 Does your family need food t his week? (Household - for ages 0-17 years) Not on file 04/19/2024 Do you always have enough fo od for your family? (Household - for ages 0-17 years) Not on file 04/19/2024 Sex and Gender Information Value Date Recorded Sex Assigned at Not on file Gender Identity Not on file Sexual Orientation Straight 09/01/2021 9: 34 AM EST Job Start Date Occupation Industry Not on file Not on file Not on file documented as of this encounter Functional Status Functional Status Response Date of Assess ment Are you deaf or do you have serious difficulty hearing? No-slight hearing loss 04/10/2024 Are you blind or do you have serious difficulty seeing, even when wearing glasses? No 04/10/2024 Do you have serious difficul ty walking or climbing stairs? (5 years old or older) Yes 04/10/2024 Do you have difficulty dress ing or bathing? (5 years old or older) Yes 04/10/2024 Because of a physical, menta l, or emotional condition, do you have difficulty doing errands alone such as visiting a doctor s office or shopping? (15 years old or older) Yes 04/10/2024 Cognitive Status Response Date of Assessm ent Because of a physical, menta l, or emotional condition, do you have serious difficulty concentrating, remembering, or making decisions? (5 years old or older) No 04/10/2024 documented as of this encounter Progress Notes * Augie Dejesus PA-C - 07/04/2024 11:49 AM EDT Subjective Bry Akhtar Jr. is a 48 year old male. No chief complaint on file. HPI: Established patient last evaluated for years ago now considered new presents today for return of left knee pain. Denies any specific injury or fall. Was treated for left knee pain in the past. Denies mechanical symptoms or instability. No swelling or redness. No calf pain. Will need to update x-rays today as willing have two views out of or that we would require. The patient is diabetic his A1c is 8.6. BMI of 42. Has trialed physical therapy as well as bracing with no relief. PMH: Patient Active Problem List Diagnosis Morbid obesity (HCC) Type 2 diabetes mellitus with hemoglobin A1c goal of less than 7.0% (HCC) Gastroparesis IBS (irritable bowel syndrome) Diabetic polyneuropathy associated with type 2 diabetes mellitus (HCC) Hyperlipidemia with target LDL less than 70 Tobacco use disorder History of DVT (deep vein thrombosis) DDD (degenerative disc disease), cervical Cervical spinal stenosis Gastroesophageal reflux disease without esophagitis DM type 2 causing vascular disease ([facility]) Chronic respiratory failure with hypercapnia (HCC) Lumbar disc herniation Obstructive sleep apnea Restrictive lung disease secondary to obesity COPD, moderate ([facility]) Cortical age-related cataract, right eye Constipation History of diabetic ulcer of foot History of pancreatitis Hx of BKA, left ([facility]) Current Outpatient Medications Medication Sig Dispense Refill Albuterol Sulfate HFA 108 (90 Base) MCG/ACT Inhalation Aerosol Solution inhale 2 puffs by mouth andINTO THE LUNGS every 6 hours if needed for cough shortness of breath or WITHDRAWAL SYMPTOMS 54 g 3 Losartan Potassium 100 MG Oral Tablet (Cozaar) Take 1 Tablet by mouth in the morning. 90 Tablet 3 Metamucil 0.52 GM Oral Capsule (Psyllium) Take 1 Capsule by mouth in the morning and 1 Capsule at noon and 1 Capsule before bedtime. 30 Capsule 0 Polyethylene Glycol 3350 17 GM Oral Packet (Miralax) Mix 1 Packet in 4 to 8 ounces of any beverage and drink by mouth in the morning. 14 Each 0 Ondansetron HCl 4 MG Oral Tablet Take 1 Tablet by mouth every 8 hours as needed for Nausea. 20 Tablet 0 Spironolactone 25 MG Oral Tablet (Aldactone) Take 1 Tablet by mouth in the morning. 90 Tablet 3 Aspirin 81 MG Oral Tablet Delayed Release Take 1 Tablet by mouth in the morning. 90 Tablet 3 Metoprolol Succinate ER 100 MG Oral Tablet Extended Release 24 Hour (toPROL XL) Take 1 tab by mouthtwice per day 180 Tablet 3 Toujeo SoloStar 300 UNIT/ML Subcutaneous Solution Pen-injector (Insulin Glargine (1 Unit Dial)) Inject 40 units twice daily- this replaces lantus 54 mL 4 BD Pen Needle Short U/F 31G X 8 MM (Insulin Pen Needle) Use to inject insulin 5 times daily 500 Each 3 Insulin Aspart FlexPen 100 UNIT/ML Subcutaneous Solution Pen-injector Inject 32 units with breakfast 22 units with lunch and 22 units with supper plus CF of 1:12 over 150. Max daily dose of 115 units(Patient taking differently: 34 units with breakfast, and 22 units with lunch and 24 units with supper + 10 units with snacks + CF of 1:10 over 140 [see chart at bottom of [facility] visit 05/09/24]) 120 mL 4 Pioglitazone HCl 45 MG Oral Tablet (Actos) Take 1 Tablet by mouth in the morning. Please fill in about a month- patient is going to be using up his current supply of 15 mg and 30 mg tablets. 90 Tablet 4 traMADol HCl 50 MG Oral Tablet (Ultram) Take 1 Tablet by mouth every 6 hours as needed for Pain, Severe. 40 Tablet 0 hydroCHLOROthiazide 25 MG Oral Tablet (Hydrodiuril) Take 1 Tablet by mouth in the morning. Lidocaine 4 % External Patch (Aspercreme) Place 1 Patch over 12 hours topically on the skin in the morning. 30 Patch 0 Metoclopramide HCl 10 MG Oral Tablet (Reglan) take 1 tablet by mouth three times a day 30 MINUTES before MEALS 270 Tablet 1 traMADol HCl 50 MG Oral Tablet (Ultram) Take 1 Tablet by mouth every 6 hours as needed for Pain, Severe. Take 1-2 tabs by mouth every 6 hours as needed for severe pain in want to do it due 8 it has been 80 Tablet 0 Alum & Mag Hydroxide-Simeth 400-400-40 MG/5ML Oral Suspension (Mi-Acid II) Take 15 ml every 6 hours as needed for constipation (Patient not taking: Reported on 06/20/2024) 355 mL 3 Polyethylene Glycol 3350 17 GM/SCOOP Oral Powder (Miralax) Take 1 scoop daily in 8 ounces of water.510 g 5 Dicyclomine HCl 10 MG Oral Capsule (Bentyl) TAKE 1 CAPSULE BY MOUTH FOUR TIMES DAILY 360 Capsule 0 Atorvastatin Calcium 20 MG Oral Tablet (Lipitor) Take 1 Tablet by mouth in the morning. 90 Tablet 3 OneTouch Verio In Vitro Strip (Glucose Blood) Use to check blood sugar once daily as needed 100 Strip 0 OneTouch Delica Lancets 33G Use to check blood sugars once daily as needed 100 Each 0 Movantik 25 MG Oral Tablet (Naloxegol Oxalate) take 1 tablet by mouth in the morning 30 Tablet 5 Gabapentin 100 MG Oral Capsule (Neurontin) TAKE 2 CAPSULES BY MOUTH EVERY 12 HOURS 120 Capsule 3 Cyclobenzaprine HCl 10 MG Oral Tablet (Flexeril) TAKE 1 TABLET BY MOUTH AT BEDTIME ONLY NEEDED 30 Tablet 0 oxyCODONE HCl 5 MG Oral Tablet (Oxy IR) Take 1 Tablet by mouth every 8 hours as needed for Pain, Severe. 20 Tablet 0 Torsemide 10 MG Oral Tablet (Demadex) Take 1 Tablet by mouth in the morning. 30 Tablet 5 metFORMIN HCl 500 MG Oral Tablet (Glucophage) Take 2 Tablets by mouth in the morning and 2 Tablets in the evening. 360 Tablet 3 Pantoprazole Sodium 40 MG Oral Tablet Delayed Release (Protonix) TAKE 1 TABLET BY MOUTH TWICE A NHT750 Tablet 3 Famotidine 20 MG Oral Tablet (Pepcid) TAKE ONE TABLET BY MOUTH NIGHTLY AT BEDTIME 90 Tablet 3 Spiriva Respimat 2.5 MCG/ACT Inhalation Aerosol Solution (Tiotropium [place] Monohydrate) Inhale 2 Puffs by mouth in the morning. 1 Each 2 No current facility-administered medications for this visit. 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 Current use of insulin ([facility]) 09/13/2017 DDD (degenerative disc disease), cervical 07/12/2019 Diabetes mellitus type 2, insulin dependent ([facility]) 07/05/2017 Diabetic polyneuropathy associated with type 2 diabetes mellitus ([facility]) 07/24/2016 Displacement of lumbar intervertebral disc without myelopathy DM type 2, goal: symptom mgmt ([facility]) 09/13/2017 DM type 2, not at goal ([facility]) Dyslipidemia, goal LDL below 70 07/24/2016 Gastroesophageal reflux disease without esophagitis 05/07/2020 Gastroparesis 08/27/2015 GERD (gastroesophageal reflux disease) History of DVT (deep vein thrombosis) 04/19/2019 HTN, goal below 140/90 12/23/2015 Per HTN Protocol #27. HTN, goal: symptom mgmt only 09/13/2017 IBS (irritable bowel syndrome) 08/27/2015 Intellectual disability 10/25/2019 Major depressive disorder, recurrent, severe without psychotic features ([facility]) 12/22/2016 Obesity, Class II, BMI 35-39.9, isolated (see actual BMI) 04/19/2019 OTHER osseochondrosis ankle Primary localized osteoarthrosis, lower leg Sleep apnea, obstructive Tobacco use disorder 12/22/2016 Type 2 diabetes mellitus with hemoglobin A1c goal of less than 8.0% ([facility]) 07/05/2017 Past Surgical History: Procedure Laterality Date ARTHO,SHOUL,W/ROTATOR CUFF Right 12/01/2019 ARTHROSCOPY SHOULDER ROTATOR CUFF performed by Judith Condon DO at OR [facility] COLONOSCOPY, DIAGNOSTIC (RECTUM) 04/18/2015 adenomatous polyp, repeat 5 yrs/[facility] COLONOSCOPY, DIAGNOSTIC (RECTUM) 04/15/2023 poor prep, repeat / [facility] COLONOSCOPY, DIAGNOSTIC (RECTUM) N/A 02/22/2024 normal/recall 5 years/COLONOSCOPY FLEXIBLE PROXIMAL DIAGNOSTIC performed by Marcela Del Valle MD at OR [facility] EGD, FLEXIBLE, DIAGNOSTIC 10/17/2014 mild-mod inflammation, repeat 1-2 mo/[facility] EGD, FLEXIBLE, DIAGNOSTIC 04/17/2015 normal bx/inpt [facility] EGD, FLEXIBLE, DIAGNOSTIC 05/08/2019 reflux esophagitis, gastritis, duodenitis, repeat 6 wks / [facility] EGD, FLEXIBLE, DIAGNOSTIC 08/18/2019 normal-EGD/[place] EGD, FLEXIBLE, DIAGNOSTIC N/A 05/02/2020 biopsies normal/EGD EGD, FLEXIBLE, DIAGNOSTIC N/A 02/22/2024 antral gastritis/biopsies normal/ESOPHAGOGASTRODUODENOSCOPY (EGD), FLEXIBLE, TRANSORAL, DIAGNOSTIC performed by Marcela Del Valle MD at OR [facility] INJECT DX/THER SUBSTANCE INTERLAMINAR CERVICAL/THORACIC W IMAGE GUIDE 08/17/2019 INJECTION SPINE LUMBAR CERVICAL OR THORACIC performed by Dario Nails DO at OR [facility] KNEE ARTHROSCOPY, DIAGNOSTIC l knee REMOVAL OF TONSILS, UNDER AGE 10 SHOULDER ARTHROSCOPY, BICEPS TENODESIS Right 12/01/2019 ARTHROSCOPY SHOULDER BICEP [facility]ODESIS [facility] SHOULDER ARTHROSCOPY/DECOMPRESSION Right 12/01/2019 ARTHROSCOPY SHOULDER SUBACROMIAL DECOMPRESSION performed by Judith Condon DO at OR [facility] Review of patient's allergies indicates: Allergen Reactions Nsaids Gastric problems Other Reaction(s): gastroparesis, kidney problems, use with caution : hx esophagus damage Ceclor [Cefaclor] Unknown As child Jardiance [Empagliflozin] Other (Please comment) DKA with hospitalization Family History Problem Relation Name Age of Onset Diabetes Mother Endocrine Disorder [...] MASTERS Tobacco Use Smoking status: Every Day Current packs/day: 1.50 Average packs/day: 1.5 packs/day for 33.0 years (49.5 ttl pk-yrs) Types: Cigarettes Smokeless tobacco: Never Vaping Use Vaping status: Never Used Substance and Sexual Activity Alcohol use: Not Currently Comment: 1 beer in the past two years Drug use: Not Currently Types: Marijuana Comment: smoked over 1-2 years ago (approx 2020) Sexual activity: Yes Partners: Female Other Topics [...] Social Determinants of Health Financial Resource Strain: Low Risk (04/19/2024) Financial Resource Strain Do you have any trouble paying for your medications, or do you think you might in the future? (Adult - for ages 18 years and over): No Does your family have trouble paying for medicine? (Household - for ages 0-17 years): Not on file Food Insecurity: No Food Insecurity (04/19/2024) Food Insecurity Do you need food for this week? (Adult - for ages 18 years and over): No Are you able to get enough food for your family? (Household - for ages 0-17 years): Not on file Does your family need food this week? (Household - for ages 0-17 years): Not on file Do you always have enough food for your family? (Household - for ages 0-17 years): Not on file Transportation Needs: No Transportation Needs (04/19/2024) Transportation Needs Do you have trouble getting a ride to medical visits or work? (Adult - for ages 18 years and over):Never True Does your family have a hard time getting a ride to doctors visits? (Household - for ages 0-17 years): Not on file Has lack of transportation kept you from medical appointments, meetings, work, or from getting things needed for daily living? Check all that apply. (Adult - for ages 18 years and over): No Do you (or your family) have trouble finding or paying for a ride (transportation)? (Household - for ages 0-17 years): Not on file Social Connections: Socially Integrated (04/19/2024) Social Connections How often do you feel lonely or isolated from those around you? (Adult - for ages 18 years and over): Never Housing Stability: Low Risk (04/19/2024) Housing Stability Do you currently live in a prison or have no steady place to sleep at night? (Adult - for ages 18 years and over): No Do you think you are at risk of becoming homeless? (Adult - for ages 18 years and over): No Does your family worry about paying for your home or becoming homeless? (Household - for ages 0-17 years): Not on file Are you homeless or worried that you might be in the future? (Adult - for ages 18 years and over): No Are you (or your family) homeless or worried that you might be in the future? (Household - for ages0-17 years): Not on file Objective There were no vitals taken for this visit. 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 Ligamentously stable regarding cruciate and collateral ligaments. Extensor mechanism intact. No obvious cystic change or masses the popliteal fossa. Pes anserine bursa and patellar tendon nontender. Hip and ankle atraumatic X-rays of the right knee four views reveal moderate to advanced narrowing along medial joint line the correlates clinically. No acute findings such as fracture dislocation or subluxation. Unable to identify any type of obvious cystic changes or masses in the bone. Official radiology report to follow accordingly and we listed in the patient's chart under imaging. Personal interpretation and documentation regarding today's plain film radiographs performed by myself. ASSESSMENT/PLAN: There are no diagnoses linked to this encounter. Impression: Right knee osteoarthritis and patellar tendinitis/PFS Plan: Today 's findings were discussed with the patient. They were educated regarding their diagnosis. Multiple treatment options discussed and agreed upon, including gel injections. Unable to injectwith corticosteroid A1c 8.6. I would consider MCCARTY injection authorization due to his osteoarthritis in the right knee. The patient has no other questions or concerns. They will follow up after completing formal physical therapy, bracing, analgesics, topical agents, ice as well as obtaining authorization for MCCARTY injection series 3 shots of the right knee. The patient is in agreement.. Pleased with today 's care. Call sooner if needed. This chart was completed in part utilizing [employer] Speech Voice Recognition Software. Grammatical errors, random word insertions, prounoun errors, and incomplete sentences are an occasional consequence of this system due to software limitations, ambient noise, and hardware issues. Any formal questions or concerns about the content, text, or information contained within the body of this dictation should be directly addressed to the provider for clarification. Augie Dejesus PA-C documented in this encounter Nursing Notes * Eliane Johansen LPN - 07/04/2024 11:51 AM EDT NEW Pt Pt c/o R knee pain 02/24 today Pt is diabetic; A1c 8.6 on 05/09/24 Pt is accompanied by his GF Ni Xray R knee today Pt arrived in w/c today Eryn Sanchez LPN documented in this encounter Plan of Treatment Upcoming Encounters Date Type Department Care Team (Latest Contact Info) Description 07/18/2024 10:30 AM EDT Office Visit Pharmacy, [place] [address] [place] [address] [facility] [address] [facility], [place], [place] [place] [address] 08/02/2024 11:12 AM EDT Hospital Encounter OR [facility], Operating Room, [facility] - 4th Floor [address] [place] [address] [place] [address] Belen Jones, DO [address] [place] [address] 08/02/2024 11:12 AM EDT - 08/02/2024 11:56 AM EDT Surgery OR [facility], Operating Room, [facility] - 4th Floor [address] [place] [address] Belen Jones, DO [address] [place] [address] ESOPHAGOGASTRODUODENOSCOPY (EGD), FLEXIBLE, TRANSORAL, ENDOSCOPIC ULTRASOUND 08/18/2024 11:00 AM EDT Office Visit [facility] [address] [facility] [phone] Velasquez Valencia MD [address] [place] [address] 07/09/2025 10:00 AM EDT Office Visit Pulmonary Medicine, [facility] [address] [place] [address] Vishal Wallace [facility] [address] [facility] [address] Scheduled Procedures Name Priority Associated Diagnoses Date/Ti fl ESOPHAGOGASTRODUODENOSCOPY ( EGD), FLEXIBLE, TRANSORAL, ENDOSCOPIC ULTRASOUND Acute pancreatitis 08/02/2024 11:12 AM EDT COLONOSCOPY FLEXIBLE PROXIMA L DIAGNOSTIC Recall Screening for colon cancer Scheduled Referrals Name Type Priority Associated Diagnoses Orde r Schedule PHYSICAL THERAPY REFERRAL OP Referral Within 10 days (routine) Primary osteoarthritis of right knee Patellar tendinitis of right knee Ordered: 07/04/2024 Health Maintenance Due Date Last Done Comments HIV Screening 1988 Alpha-1 Antitrypsin 1991 Hepatitis C Screening 1991 Hepatitis B Vaccine (1 of 3 - 19+ 3-dose series) 1992 Cologuard 2018 Fecal Occult Blood Test 2018 Sigmoidoscopy 2018 DISCUSS TOBACCO CESSATION (REFER TO SMARTSET #5586) 10/16/2023 10/16/2022 Zoster Vaccines (1 of 2) 2023 COVID-19 Vaccine (4 - season) 2024 10/21/2021, 03/01/2021, 02/07/2021 Diabetic Foot Exam 07/09/2024 07/09/2023, 0 03/07/2021, 11/27/2019, Additional history exists Diabetic Eye Exam 07/28/2024 07/28/2023, , 03/07/2021, Additional history exists HbA1c 11/09/2024 05/09/2024, 02/16, 01/14/2024, Additional history exists Albumin/Creatinine Ratio 01/13/2025 024, 01/05/2023, 09/01/2021, Additional history exists O2 ASSESSMENT COMPLETED IN PAST YEAR FOR COPD 02/21/2025 02/22/2024 Depression Screening 04/19/2025 04/19/2024 GFR 05/09/2025 05/09/2024, 03/19, 04/12/2024, Additional history exists DTap/Tdap Vaccines (2 - Td or Tdap) 05/01/2028 05/01/2018 Colonoscopy 02/21/2029 02/22/2024, 050 04/2024, 04/15/2023, Additional history exists Colorectal Cancer Screening 02/21/2029 Lipid Panel 04/11/2029 04/11/2024, 11/19, 01/05/2023, Additional history exists Pneumococcal Vaccine: Pediatrics (0 to 5 Years) and At-Risk Patients (6 to 64 Years) Completed 07/09/2023, 11/03/2015, 02/09/2006 Lung Cancer Screening Completed 02/09/2024 , 09/19/2023, 12/15/2022, Additional history exists RETIRED - COLONOSCOPY-EVERY 5 YRS AGES 18-100 Discontinued 02/22/2024, 02/22/2024, 04/15/2023, Additional history exists Influenza Vaccine (FLU shot) Completed 07/04/2024, 07/09/2023, 10/16/2022, Additional history exists HPV (Gardasil) Vaccine Aged Out No lo nger eligible based on patient's age to complete this topic MENINGOCOCCAL (MENACTRA/MENVEO) Aged Out No longer eligible based on patient's age to complete this topic documented as of this encounter Medical Devices Implanted Type Area Supervisor [employer] Milling Device Identifier Shelf Expiration Date Model / Serial / Lot Suture [place] Dbl Load 4.75mm - [id number] Implanted:Qty: 1 on 12/01/2019 by Judith Condon, DO at OR [facility] Right: Shoulder [employer] 07/17/2021 AR-2324BCT -2 / / [id number] Suture [place] Dbl Load 5.5mm - [id number] Implanted:Qty: 1 on 12/01/2019 by Judith Condon, at OR [facility] Right: Shoulder [employer] 09/16/2021 AR-2323BCT -2 / / [id number] documented as of this encounter Procedures Procedure Name Priority Date/Time Associated Diagnosis Comments XR KNEE 4 OR MORE VIEWS Routine 07/04/2024 12:15 PM EDT documented in this encounter Results * XR KNEE 4 OR MORE VIEWS (07/04/2024 12:15 PM EDT) Anatomical Region Laterality Modality Knee, Lower Extremity Digital Ra diography 07/07/2024 12:3 7 PM EDT Impressions 07/07/2024 12:34 PM EDT IMPRESSION Mild osteoarthritis. Narrative 07/07/2024 12:34 PM EDT EXAM XR KNEE 4 OR MORE VIEWS-07/04/2024 12:15 pm HISTORY pain TECHNIQUE Four images COMPARISON June 22, 2024 FINDINGS There is marginal osteophyte formation without joint space narrowing. There is no fracture. No joint effusion. Procedure Note Trisha Cleaning MD - 07/07/2024 EXAM XR KNEE 4 OR MORE VIEWS-07/04/2024 12:15 pm HISTORY pain TECHNIQUE Four images COMPARISON June 22, 2024 FINDINGS There is marginal osteophyte formation without joint space narrowing.There is no fracture. No joint effusion. IMPRESSION IMPRESSION Mild osteoarthritis. Augie Dejesus PA-C RADIOLOGY ([facility]) documented in this encounter Visit Diagnoses Diagnosis Primary osteoarthritis of right knee- Primary Primary localized osteoarthrosis, lower leg Patellar tendinitis of right knee Patellar tendinitis Acute pancreatitis documented in this encounter Advance Directives * Full Code (Latest Code Status on File) Date Activated Date Inactivated Comments 04/10/2024 8:31 PM 04/13/2024 5:56 PM This order r eflects the patients wishes and were consensually agreed upon. Question Answer Comments Discussion of Advance Directives occurred with: Patient Does the patient have a Living Will? No Does the patient have Health Care Power of Attor niles? No * Full Code Date Activated Date Inactivated Comments 03/03/2024 5:56 PM 03/06/2024 6:20 PM This order r eflects the patients wishes and were consensually agreed upon. Question Answer Comments Discussion of Advance Directives occurred with: Patient * Full Code Date Activated Date Inactivated Comments 12/12/2023 7:55 PM 12/14/2023 4:03 PM This order r eflects the patients wishes and were consensually agreed upon. Question Answer Comments Discussion of Advance Directives occurred with: Patient * Full Code Date Activated Date Inactivated Comments 10/27/2023 5:27 PM 11/05/2023 5:40 PM This order r eflects the patients wishes and were consensually agreed upon. Question Answer Comments Discussion of Advance Directives occurred with: Patient * Full Code Date Activated Date Inactivated Comments 11/30/2021 9:36 PM 12/01/2021 9:03 PM This order r eflects the patients wishes and were consensually agreed upon. Question Answer Comments Discussion of Advance Directives occurred with: Not Discussed Care Teams Seasonal Clerk Relationship Specialty Start Date End Date Velasquez Valencia MD [address] [facility] [place], [facility] [place] [address] PCP - General Family Medicine 09/09/22 documented as of this encounter
--- OUTSIDE RECORDS SUMMARY | 2024-07-14 04:33 | External Medical Summary | Summary of Care ---
Author Name Unknown Organization [facility] Address [address] [facility] [place] [address] Phone [phone] Care Team Providers Care Windmill Mechanic Name Role Phone Velasquez Valencia MD Primary Care Provider [phone]- [phone] Reason for Visit * Reason Onset Date Comments Precert Denied 07/04/2024 Encounter Details Date Type Department Care Team (Late st Contact Info) Description 07/04/2024 Telephone Orthopaedics [facility] [address] [place] [address] Augie Dejesus PA-C [address] [place] [address] Precert Denied Allergies Active Allergy Reactions Criticality Noted Date [...] over 140 [see chart at bottom of [facility] visit 05/09/24], Reported on 05/09/2024 Pioglitazone HCl [...] of less than 7.0% (HCC) Use to check blood sugar once daily as needed 100 Strip 05/09/2024 Active OneTouch Delica Lancets 33GIndications:Typ e 2 diabetes mellitus with hemoglobin A1c goal of less than 7.0% ([facility]) Use to check blood sugars [...] hemoglobin A1c goal of less than 7.0% ([facility]) Take 2 Tablets by mouth in the morning and 2 Tablets in the evening. 360 Tablet 3 07/03/2024 Active Pantoprazole Sodium 40 MG Oral Tablet Delayed Release (Protonix) TAKE 1 TABLET BY MOUTH TWICE A DAY 180 Tablet 3 07/03/2024 Active Famotidine 20 MG Oral Tablet (Pepcid) TAKE ONE TABLET BY MOUTH NIGHTLY AT BEDTIME 90 Tablet 3 07/03/2024 Active Spiriva Respimat 2.5 MCG/ACT Inhalation Aerosol Solution (Tiotropium [place] Monohydrate) Inhale 2 Puffs by mouth in the morning. 1 Each 2 07/04/2024 Active documented as of this encounter (statuses [...] diabetes mellitus 03/02/2021 07/04/2021 Intellectual disability 10/25/201903/2022 Obesity, Class II, BMI 35-39 .9, isolated [...] mRNA, LNP-s, No Pre serve, 2-Dose Series (BrainLAB) 10/21/2021,03/01/2021,02/07/2021 H1N1 2009 Influenza, IM 11/04/2009 Pneumococcal Conjugate Vacci ne, 20-valent ([id number]) 07/09/2023 Pneumococcal Polysaccharide PPV23 (Pneumovax) 11/03/2015,02/09/2006 Seasonal [...] No 04/10/2024 documented as of this encounter Miscellaneous Notes * Telephone Encounter - Rhea Carr MED ASSIST - 07/12/2024 3:50 PM EDT Addended note is from the office visit dated 07/04 * Telephone Encounter - Mehnaz Frederick OSA - 07/12/2024 3:43 PM EDT Rhea, Where can I look to see the addended note? Is it in the patients chart or in this telephone encounter? Thanks Please return only to [id number] * Telephone Encounter - Rhea Carr MED ASSIST - 07/12/2024 1:27 PM EDT Can we please resubmit with the new addended note to reflect patient has tried and failed options. * Telephone Encounter - Allison Guzman, DAMION - 07/11/2024 1:56 PM EDT Pt called stating he spoke with his insurance co and needs Augie Dejesus to submit approval for him to get gel injections. He has done physical therapy and wore the brace and neither has helped. He can't do steroid injections because of his diabetes. Please call pt to advise, I gave him the 24-48 hrtimeframe. Thanks. * Telephone Encounter - Nu Munson OSA - 07/07/2024 10:22 AM EDT They are the [facility] guidelines for approval. He can try call [facility] Family directly. * Telephone Encounter - Rhea Carr MED ASSIST - 07/07/2024 9:58 AM EDT Please see patients message below. Are we able to submit this? * Telephone Encounter - Anthony Brannon OSA - 07/07/2024 9:26 AM EDT Pt calling to check status of precert. He wants to know why they have not been approved and that hewants them approved today. He was very angry and rude. Pt then hung up in a hurry * Telephone Encounter - Nu Munson OSA - 07/05/2024 10:14 AM EDT This request for Euflexxa had to be withdrawn The physicians assessment notes: they will follow up after completing formal PT, bracing, analgesic, topical agents, and ice. This was just done on 07/04/24. Patient has not completed the above? * Telephone Encounter - Nu Munson OSA - 07/05/2024 8:57 AM EDT [facility] Authorization Submission Submission Information: Medication: EUFLEXXA Portal used: [facility] Insurance: [facility] Authorization #/Lombardo: [id number] * Telephone Encounter - Rhea Carr MED ASSIST - 07/04/2024 3:33 PM EDT Orthopaedics Pre-Cert Request Medication/Disease State Information: Medication: Hyaluronate- Euflexxa ([id number]): inject 20 mg (2 mL) once weekly for 3 weeks (total of 3 injections). Route to [id number] Is there radiological proof(x-ray, cat scan, mri of osteoarthritis? yesIf yes, date of scan: Has the patient tried physical therapy?yes Has the patient tried tylenol or NSAIDs?yes Has the patient failed corticosteroid injections of the knee?yes Has the patient tried weight loss?no Has the patient tried knee bracing?yes Has the patient tried a home exercise program?no Diagnosis (including ICD-10): Unilateral primary osteoarthritis, right knee- M17.11 Medication(s) Tried/Failed/Contraindicated: See corresponding visit note(s) for additional supporting clinical information. Office Information: Prescriber: augie dejesus * Telephone Encounter - Rhea Carr MED ASSIST - 07/04/2024 3:33 PM EDT ----- Message from Augie Dejesus sent at 07/04/2024 12:18 PM EDT ----- Please obtain 3 shot MCCARTY series for right knee and schedule accordingly, thank you documented in this encounter Plan of Treatment Upcoming Encounters Date Type Department Care Team (Latest Contact Info) Description 07/18/2024 10:30 AM EDT [facility] [address] [facility] [address] [facility] [address] [facility] [address] 08/02/2024 11:12 AM EDT Hospital Encounter OR [facility], Operating Room, [facility] - 4th Floor [address] [place] [address] Belen Jones, DO [address] [place] [address] 08/02/2024 11:12 AM EDT - 08/02/2024 11:56 AM EDT Surgery OR [facility], Operating Room, [facility] - 4th Floor [address] [place] [address] Belen Jones, DO [address] [place] [address] ESOPHAGOGASTRODUODENOSCOPY (EGD), FLEXIBLE, TRANSORAL, ENDOSCOPIC ULTRASOUND 08/18/2024 11:00 AM EDT Office Visit [facility] [address] [facility] [phone] Velasquez Valencia [facility] [address] [facility] [place] [address] 07/09/2025 10:00 AM EDT Office Visit Pulmonary Medicine, [facility] [address] [place] [address] Vishal Wallace MD [address] [place] [address] Scheduled Procedures Name Priority Associated Diagnoses Date/Ti me ESOPHAGOGASTRODUODENOSCOPY ( EGD), FLEXIBLE, TRANSORAL, ENDOSCOPIC ULTRASOUND Acute pancreatitis 08/02/2024 11:12 AM EDT COLONOSCOPY FLEXIBLE PROXIMA L DIAGNOSTIC Recall Screening for colon cancer Health Maintenance Due Date Last Done Comments HIV Screening 1988 Alpha-1 Antitrypsin 1991 Hepatitis C Screening 1991 Hepatitis B Vaccine (1 of 3 - 19+ 3-dose series) 1992 Cologuard 2018 Fecal Occult Blood Test 2018 Sigmoidoscopy 2018 DISCUSS TOBACCO CESSATION (REFER TO SMARTSET #3291) 10/16/2023 10/16/2022 Zoster Vaccines (1 of 2) 2023 COVID-19 Vaccine ( season) 2024 10/21/2021, 03/01/2021, 02/07/2021 Diabetic Foot [...] or Tdap) 05/01/2028 05/01/2018 Colonoscopy 02/21/2029 02/22/2024, 05/0 04/2024, 04/15/2023, Additional history exists Colorectal Cancer [...] this encounter Medical Devices Implanted Type Area Manager Of Radiology Device Identifier Shelf Expiration Date Model / Serial / Lot Suture [place] Dbl Load 4.75mm - [id number] Implanted:Qty: 1 on 12/01/2019 by Judith Condon DO at OR [facility] Right: Shoulder [employer] 07/17/2021 AR-2324BCT -2 / / [id number] Suture [place] Dbl Load 5.5mm - [id number] Implanted:Qty: 1 on 12/01/2019 by Judith Condon DO at OR [facility] Right: Shoulder [employer] 09/16/2021 AR-2323BCT -2 / / [id number] documented as of this encounter Advance Directives * Full Code [...] Directives occurred with: Not Discussed Care Teams Windmill Mechanic Relationship Specialty Start Date End Date Velasquez Valencia MD [address] [place] [address] PCP - General Family Medicine 09/09/22 documented as of this encounter
--- OUTSIDE RECORDS SUMMARY | 2024-07-14 04:33 | External Medical Summary | Summary of Care ---
Author Name Unknown Organization [facility] Address [address] [facility] [place] [address] Phone [phone] Care Team Providers Care Medicaid Biller Name Role Phone Velasquez Valencia MD Primary Care Provider +1- [phone] Reason for Visit * Reason Onset Date Comments Pre Cert/Prior Auth 07/04/2024 Euflexxa [facility] Family NU Encounter Details Date Type Department Care Team (Late st Contact Info) Description 07/04/2024 Telephone Orthopaedics [facility] [address] [place] [address] Augie Dejesus PA-C [address] [place] [address] Pre Cert/Prior Auth (Euflexxa [facility] Family L... Allergies Active Allergy Reactions Criticality Noted Date Comments Cefaclor Unknown 07/26/2018 As child Empagliflozin Other (Please comment) 05/16/2021 DKA with hospitalization Nsaids High 04/19/2019 Gastric problems Other Reaction(s): gastroparesis, kidney problems, use with caution : hx esophagus damage documented as of this encounter (statuses as of 07/13/2024) Medications Medication Sig Dispensed Refills Start Date [...] over 140 [see chart at bottom of [facility] visit 05/09/24], Reported on 05/09/2024 Pioglitazone HCl [...] daily as needed 100 Strip 05/09/2024 Active BlessingCherri Humphrey Lancets 33GIndications:Typ e 2 diabetes mellitus with hemoglobin A1c goal of less than 7.0% (HCC) Use to check blood sugars once daily [...] Respimat 2.5 MCG/ACT Inhalation Aerosol Solution (Tiotropium [place] Monohydrate) Inhale 2 Puffs by mouth in the morning. 1 Each 2 07/04/2024 4 Active documented as of this encounter (statuses as of 07/13/2024) Active Problems Problem Noted Date Diagnosed Date [...] as of this encounter (statuses as of 07/13/2024) Resolved Problems Problem Noted Date Diagnosed Date [...] as of this encounter (statuses as of 07/13/2024) Immunizations Name Administration Dates Next Due COVID-19 mRNA, LNP-s, No Pre serve, 2-Dose Series (NuScale Power) 10/21/2021,03/01/2021,02/07/2021 H1N1 2009 Influenza, IM 11/04/2009 Pneumococcal Conjugate Vacci ne, 20-valent ([id number]) 07/09/2023 Pneumococcal Polysaccharide PPV23 (Pneumovax) 11/03/2015,02/09/2006 Seasonal [...] 04/19/2024 Does the household have a re lar source of income? (Household - for ages [...] encounter Miscellaneous Notes * Telephone Encounter - Nu Munson OSA - 07/13/2024 5:06 AM EDT REQ AUTH * Telephone Encounter - Rhea Carr MED ASSIST - 07/12/2024 3:50 PM EDT Addended note is from the office visit dated 07/04 * Telephone Encounter - Mehnaz Frederick OSA - 07/12/2024 3:43 PM EDT Rhea, Where can I look to see the addended note? Is it in the patients chart or in this telephone encounter? Thanks Please return only to [phone] * Telephone Encounter - Rhea Carr MED ASSIST - 07/12/2024 1:27 PM EDT Can we please resubmit with the new addended note to reflect patient has tried and failed options. * Telephone Encounter - Allison Guzman OSA - 07/11/2024 1:56 PM EDT Pt called [...] 07/07/2024 10:22 AM EDT They are the [facility] guidelines for approval. He can try call [facility] Family directly. * Telephone Encounter - Rhea [...] Munson OSA - 07/05/2024 8:57 AM EDT [facility] Authorization Submission Submission Information: Medication: EUFLEXXA Portal used: [facility] Insurance: [facility] Authorization #/Lombardo: [id number] * Telephone Encounter - Rhea Carr MED ASSIST - 07/04/2024 3:33 PM EDT Orthopaedics Pre-Cert Request Medication/Disease State Information: Medication: Hyaluronate- Euflexxa (J7323): inject 20 mg (2 mL) once weekly for 3 weeks (total of 3 injections). Route to [id number] Is there radiological proof(x-ray, cat scan, mri [...] 07/18/2024 10:30 AM EDT Office Visit Pharmacy, [address] [address] [facility] [address] [place] [address] 08/02/2024 11:12 AM EDT Hospital Encounter [facility], Operating Room, [facility] - 4th Floor [address] [facility] [phone] Belen Jones, DO [address] [place] [address] 08/02/2024 11:12 AM EDT - 08/02/2024 11:56 AM EDT Surgery OR [facility], Operating Room, [facility] - 4th Floor [address] [facility] [phone] Belen Jones, DO [address] [place] [address] ESOPHAGOGASTRODUODENOSCOPY (EGD), FLEXIBLE, TRANSORAL, ENDOSCOPIC ULTRASOUND 08/18/2024 11:00 AM EDT Office Visit [facility] [address] [place] [facility] [place] [phone] Velasquez Valencia MD [address] [place], [place] [phone] 07/09/2025 10:00 AM EDT Office Visit Pulmonary Medicine, [facility] [address] [facility] [place] [address] Vishal Wallace MD [address] [place] [address] Scheduled Procedures Name Priority Associated Diagnoses Date/Ti [...] or Tdap) 05/01/2028 05/01/2018 Colonoscopy 02/21/2029 02/22/2024, 0504/2024, 04/15/2023, Additional history exists Colorectal Cancer Screening [...] this encounter Medical Devices Implanted Type Area Shake Backboard Notcher Device Identifier Shelf Expiration Date Model / Serial / Lot Suture [place] Dbl Load 4.75mm - [id number] Implanted:Qty: 1 on 12/01/2019 by Judith Condon, DO at OR [facility] Right: Shoulder [employer] 07/17/2021 AR-2324BCT -2 / / [id number] Suture [place] Dbl Load 5.5mm - [id number] Implanted:Qty: 1 on 12/01/2019 by Judith Condon DO at OR [facility] Right: Shoulder [employer] 09/16/2021 AR-2323BCT -2 / / [id number] documented as of this encounter Advance Directives [...] Directives occurred with: Not Discussed Care Teams Medicaid Biller Relationship Specialty Start Date End Date Velasquez Valencia MD [address] [facility] [place] [address] PCP - General Family Medicine 09/09/22 documented as of this encounter
--- OUTSIDE RECORDS SUMMARY | 2024-07-14 04:33 | External Medical Summary | Summary of Care ---
Author Name Unknown Organization [facility] Address [address] [facility] [address] Phone [phone] Care Team Providers Care Director Of Primary Name Role Phone Velasquez Valencia MD Primary Care Provider +1- [phone] Reason for Visit * Reason Onset Date Comments [facility] En[facility] Details Date Type Department Care Team (Late st Contact Info) Description 07/04/2024 Telephone Orthopaedics [facility] [address] [place] [address] Augie Dejesus PA-C [address] [place] [address] [facility] Family GAR... Allergies Active Allergy Reactions Criticality Noted Date [...] Respimat 2.5 MCG/ACT Inhalation Aerosol Solution (Tiotropium [place] Monohydrate) Inhale 2 Puffs by mouth in [...] mRNA, LNP-s, No Pre serve, 2-Dose Series (Food52) 10/21/2021,03/01/2021,02/07/2021 H1N1 2009 Influenza, IM 11/04/2009 Pneumococcal Conjugate Vacci ne, 20-valent ([id number]) 07/09/2023 Pneumococcal Polysaccharide PPV23 (Pneumovax) 11/03/2015,02/09/2006 Seasonal [...] Munson OSA - 07/13/2024 5:06 AM EDT [facility] Authorization Submission Submission Information: Medication: EUFLEXXA Portal used: [facility] Insurance: [employer] Authorization #/Lombardo: [id number] * Telephone Encounter - Rhea Carr MED ASSIST - 07/12/2024 3:50 PM EDT Addended note is from the office visit dated 07/04 * Telephone Encounter - Mehnaz Frederick OSA - 07/12/2024 3:43 PM EDT Rhea, Where can I look to see the addended note? Is it in the patients chart or in this telephone encounter? Thanks Please return only to [phone] * Telephone Encounter - Rhea Carr MED [...] 07/07/2024 10:22 AM EDT They are the [facility] guidelines for approval. He can try call [facility] Family directly. * Telephone Encounter - Rhea [...] Munson OSA - 07/05/2024 8:57 AM EDT [facility] Authorization Submission Submission Information: Medication: EUFLEXXA Portal used: [facility] Insurance: [facility] Authorization #/Lombardo: [id number] * Telephone Encounter - Rhea Carr MED ASSIST - 07/04/2024 3:33 PM EDT Orthopaedics Pre-Cert Request Medication/Disease State Information: Medication: Hyaluronate- Euflexxa (J7323): inject 20 mg (2 mL) once weekly for 3 weeks (total of 3 injections). Route to [id number] Is there radiological proof(x-ray, cat scan, mri [...] 07/18/2024 10:30 AM EDT Office Visit Pharmacy, [address] [address] [facility] [address] [place] [address] 08/02/2024 11:12 AM EDT Hospital Encounter OR [facility], Operating Room, [facility] - 4th Floor [address] [place] [address] Belen Jones, [address] [facility] [place] [address] 08/02/2024 11:12 AM EDT - 08/02/2024 11:56 AM EDT Surgery OR [facility], Operating Room, [facility] - 4th Floor [address] [place] [address] Belen Jones DO [address] [place] [address] ESOPHAGOGASTRODUODENOSCOPY (EGD), FLEXIBLE, TRANSORAL, ENDOSCOPIC ULTRASOUND 08/18/2024 11:00 AM EDT Office Visit [facility] [address] [facility], [place] [phone] Velasquez Valencia MD [address] [place] [facility] [place] [address] 07/09/2025 10:00 AM EDT Office Visit Pulmonary Medicine, [facility] [address] [place] [address] Vishal Wallace MD [address] [facility] [place] [address] Scheduled Procedures Name Priority Associated Diagnoses Date/Ti [...] 03/07/2021, Additional history exists HbA1c 11/09/2024 05/09/2024, 2 10/2023, 01/14/2024, Additional history exists Albumin/Creatinine Ratio 01/13/2025 [...] this encounter Medical Devices Implanted Type Area Rehab Therapist Device Identifier Shelf Expiration Date Model / Serial / Lot Suture [place] Dbl Load 4.75mm - [id number] Implanted:Qty: 1 on 12/01/2019 by Judith Condon, DO at OR [facility] Right: Shoulder [employer] 07/17/2021 AR-2324BCT -2 / / [id number] Suture [place] Dbl Load 5.5mm - [id number] Implanted:Qty: 1 on 12/01/2019 by Judith Condon DO at OR [facility] Right: Shoulder [employer] 09/16/2021 AR-2323BCT -2 / / [id number] documented as of this encounter Advance Directives [...] Directives occurred with: Not Discussed Care Teams Director Of Primary Relationship Specialty Start Date End Date Velasquez Valencia MD [address] [facility] [place] [address] PCP - General Family Medicine 09/09/22 documented as of this encounter
--- OUTSIDE RECORDS SUMMARY | 2024-07-14 04:34 | External Medical Summary | Summary of Care ---
Author Name Unknown Organization [facility] Address [address] [facility] [place] [address] Phone [phone] Care Team Providers Care Plant Protection Officer Name Role Phone Velasquez Valencia MD Primary Care Provider +1- [phone] Reason for Visit * Reason Onset Date Comments Precert Denied 07/04/2024 Encounter Details Date Type Department Care Team (Late st Contact Info) Description 07/04/2024 Telephone Orthopaedics [facility] [address] [place] [address] Augie Dejesus PA-C [address] [place] [address] Precert Denied Allergies Active Allergy Reactions Criticality [...] over 140 [see chart at bottom of [facility] visit 05/09/24], Reported on 05/09/2024 Pioglitazone HCl [...] hemoglobin A1c goal of less than 7.0% ([facility]) Use to check blood sugars [...] hemoglobin A1c goal of less than 7.0% ([facility]) Take 2 Tablets by mouth [...] Respimat 2.5 MCG/ACT Inhalation Aerosol Solution (Tiotropium [place] Monohydrate) Inhale 2 Puffs by mouth in [...] mRNA, LNP-s, No Pre serve, 2-Dose Series (Novogenie) 10/21/2021,03/01/2021,02/07/2021 H1N1 2009 Influenza, IM 11/04/2009 Pneumococcal Conjugate Vacci ne, 20-valent ([id number]) 07/09/2023 Pneumococcal Polysaccharide PPV23 (Pneumovax) 11/03/2015,02/09/2006 Seasonal [...] encounter Miscellaneous Notes * Telephone Encounter - Mehnaz Frederick OSA - 07/12/2024 3:43 PM EDT Rhea, Where can I look to see the addended note? Is it in the patients chart or in this telephone encounter? Thanks Please return only to [phone] * Telephone Encounter - Rhea Carr MED [...] 07/07/2024 10:22 AM EDT They are the [facility] guidelines for approval. He can try call [facility] Family directly. * Telephone Encounter - Rhea [...] Munson OSA - 07/05/2024 8:57 AM EDT [facility] Authorization Submission Submission Information: Medication: EUFLEXXA Portal used: [facility] Insurance: [facility] Authorization #/Lombardo: [id number] * Telephone Encounter - Rhea Carr MED ASSIST - 07/04/2024 3:33 PM EDT Orthopaedics Pre-Cert Request Medication/Disease State Information: Medication: Hyaluronate- Euflexxa (J7323): inject 20 mg (2 mL) once weekly for 3 weeks (total of 3 injections). Route to [id number] Is there radiological proof(x-ray, cat scan, mri [...] 07/18/2024 10:30 AM EDT Office Visit [facility], [place] [address] [facility] [address] [facility] [address] [facility] [address] 08/02/2024 11:12 AM EDT Hospital Encounter OR [facility], Operating Room, [facility] - 4th Floor [address] [facility] [address] Belen Jones, DO [address] [place] [address] 08/02/2024 11:12 AM EDT - 08/02/2024 11:56 AM EDT Surgery OR [facility], Operating Room, [facility] - 4th Floor [address] [facility] [place] [address] Belen Jones, DO [address] [place] [address] ESOPHAGOGASTRODUODENOSCOPY (EGD), FLEXIBLE, TRANSORAL, ENDOSCOPIC ULTRASOUND 08/18/2024 11:00 AM EDT Office Visit Family [facility], [place] [address] [place] [phone] Velasquez Valencia MD [address] [facility] [place] [address] 07/09/2025 10:00 AM EDT Office Visit Pulmonary Medicine, [facility] [address] [place] [address] Vishal Wallace MD [address] [place] [address] Scheduled Procedures Name Priority Associated Diagnoses Date/Ti [...] this encounter Medical Devices Implanted Type Area Interventional Pain Physician Device Identifier Shelf Expiration Date Model / Serial / Lot Suture [place] Dbl Load 4.75mm - [id number] Implanted:Qty: 1 on 12/01/2019 by Judith Condon DO at OR [facility] Right: Shoulder [employer] 07/17/2021 AR-2324BCT -2 / / [id number] Suture [place] Dbl Load 5.5mm - [id number] Implanted:Qty: 1 on 12/01/2019 by Judith Condon DO at OR [facility] Right: Shoulder [employer] 09/16/2021 AR-2323BCT -2 / / [id number] documented as of this encounter Advance Directives [...] Directives occurred with: Not Discussed Care Teams Plant Protection Officer Relationship Specialty Start Date End Date Velasquez Valencia MD [address] [place] [facility] [place] [address] PCP - General Family Medicine 09/09/22 documented as of this encounter
--- OUTSIDE RECORDS SUMMARY | 2024-07-14 04:34 | External Medical Summary | Summary of Care ---
Author Name Unknown Organization [facility] Address [address] [facility] [place] [address] Phone [phone] Care Team Providers Care Child Welfare Social Worker Name Role Phone Velasquez Valencia MD Primary Care Provider +1- [phone] Reason for Visit * Reason Onset Date Comments Precert Denied 07/04/2024 Encounter Details Date Type Department Care Team (Late st Contact Info) Description 07/04/2024 Telephone Orthopaedics [facility] [address] [place] [address] Augie Dejesus PA-C [address] [place] [address] Precert Denied Allergies Active Allergy Reactions Criticality [...] over 140 [see chart at bottom of [facility] visit 05/09/24], Reported on 05/09/2024 Pioglitazone HCl [...] A1c goal of less than 7.0% ([facility]) Use to check blood sugars once daily [...] A1c goal of less than 7.0% ([facility]) Take 2 Tablets by mouth in the [...] Respimat 2.5 MCG/ACT Inhalation Aerosol Solution (Tiotropium [place] Monohydrate) Inhale 2 Puffs by mouth in [...] mRNA, LNP-s, No Pre serve, 2-Dose Series (Definition 6) 10/21/2021,03/01/2021,02/07/2021 H1N1 2009 Influenza, IM 11/04/2009 Pneumococcal Conjugate Vacci ne, 20-valent ([id number]) 07/09/2023 Pneumococcal Polysaccharide PPV23 (Pneumovax) 11/03/2015,02/09/2006 Seasonal [...] with his insurance co and needs Augie [place] to submit approval for him to get gel injections. He has done physical therapy and wore the brace and neither has helped. He can't do steroid injections because of his diabetes. Please call pt to advise, I gave him the 24-48 hrtimeframe. Thanks. * Telephone Encounter - Nu Munson OSA - 07/07/2024 10:22 AM EDT They are the [facility] guidelines for approval. He can try call [facility] Family directly. * Telephone Encounter - [...] Munson OSA - 07/05/2024 8:[address] [facility] Authorization Submission Submission Information: Medication: EUFLEXXA Portal used: [facility] Insurance: [facility] Authorization #/Lombardo: [id number] * Telephone Encounter - Rhea Carr MED ASSIST - 07/04/2024 3:33 PM EDT Orthopaedics Pre-Cert Request Medication/Disease State Information: Medication: Hyaluronate- Euflexxa (J7323): inject 20 mg (2 mL) once weekly for 3 weeks (total of 3 injections). Route to [id number] Is there radiological proof(x-ray, cat scan, mri [...] Description 07/18/2024 10:30 AM EDT [facility] [address] [place] [address] [facility] [address] [place] [address] 08/02/2024 11:12 AM EDT Hospital Encounter OR [facility], Operating Room, [facility] - 4th Floor [address] [facility] [address] Belen Jones, DO [address] [place] [address] 08/02/2024 11:12 AM EDT - 08/02/2024 11:56 AM EDT Surgery OR [facility], Operating Room, [facility] - 4th Floor [address] [facility] [place] [address] Belen Jones, DO [address] [place] [address] ESOPHAGOGASTRODUODENOSCOPY (EGD), FLEXIBLE, TRANSORAL, ENDOSCOPIC ULTRASOUND 08/18/2024 11:00 AM EDT Office Visit [place] [address] [place] [facility] [place] [address] Velasquez Valencia MD [address] [facility] [address] 07/09/2025 10:00 AM EDT Office Visit Pulmonary Medicine, [facility] [address] [place], [place] [address] Vishal Wallace MD [address] [place] [address] Scheduled Procedures Name Priority Associated Diagnoses Date/Ti [...] 2018 DISCUSS TOBACCO CESSATION (REFER TO SMARTSET #1627) 10/16/2023 10/16/2022 Zoster Vaccines (1 of 2) 2023 COVID-19 Vaccine (2023- season) 2024 10/21/2021, 03/01/2021, 02/07/2021 Diabetic Foot Exam 07/09/2024 07/09/2023, 0 03/07/2021, 11/27/2019, Additional history exists Diabetic Eye Exam 07/28/2024 07/28/2023, , 03/07/2021, Additional history exists HbA1c 11/09/2024 05/09/2024, 052 10/2023, 01/14/2024, Additional history exists Albumin/Creatinine Ratio [...] this encounter Medical Devices Implanted Type Area Security Control Assessor Device Identifier Shelf Expiration Date Model / Serial / Lot Suture [place] Dbl Load 4.75mm - [id number] Implanted:Qty: 1 on 12/01/2019 by Judith Condon, at OR [facility] Right: Shoulder [employer] 07/17/2021 AR-2324BCT -2 / / [id number] Suture [place] Dbl Load 5.5mm - [id number] Implanted:Qty: 1 on 12/01/2019 by Judith Condon DO at OR [facility] Right: Shoulder [employer] 09/16/2021 AR-2323BCT -2 / / [id number] documented as of this encounter Advance Directives [...] Directives occurred with: Not Discussed Care Teams Child Welfare Social Worker Relationship Specialty Start Date End Date Velasquez Valencia MD [address] [place] [address] PCP - General Family Medicine 09/09/22 documented as of this encounter
--- OUTSIDE RECORDS SUMMARY | 2024-07-14 04:34 | External Medical Summary | Summary of Care ---
Author Name Unknown Organization [facility] Address [address] [place] [address] Phone [phone] Care Team Providers Care Vp Transportation Name Role Phone Velasquez Valencia MD Primary Care Provider +1- [phone] Reason for Referral * Evaluate & Treat - Unlimited Visits (Within 10 days (routine)) - Authorized Specialty Diagnoses / Procedures Referred By Bismark brown Referred To Contact Physical Therapy / Physical Medicine And Rehab Diagnoses Primary osteoarthritis of right knee Patellar tendinitis of right knee Augie Dejesus PA-C [address] [place] [address] Referral ID Status Reason Start Date Expiration Date Visits Requested Visits Authorized [id number] Authorized Specialty Services Required 07/04/2024 999 999 [...] pain of right knee Velasquez Valencia MD [address] [place] [address] Referral ID Status Reason Start Date Expiration Date Visits Requested Visits Authorized [id number] Authorized Specialty Services Required 06/29/2024 999 999 Encounter Details Date Type Department Care Team (Latest Contact Info) Description 07/04/2024 12:30 PM EDT Office Visit Orthopaedics [facility] [address] [place] [address] Augie Dejesus PA-C [address] [place] [address] Primary osteoarthritis of right knee*; Patellar tendinitis [...] hemoglobin A1c goal of less than 7.0% ([facility]) Use to check blood sugar once daily as needed 100 Strip 05/09/2024 Active OneTouch Delica Lancets 33GIndications:Typ e 2 diabetes mellitus with hemoglobin A1c goal of less than 7.0% ([facility]) Use to check blood sugars [...] mRNA, LNP-s, No Pre serve, 2-Dose Series (SamEnrico) 10/21/2021,03/01/2021,02/07/2021 H1N1 2009 Influenza, IM 11/04/2009 Pneumococcal Conjugate Vacci ne, 20-valent ([id number]) 07/09/2023 Pneumococcal Polysaccharide PPV23 (Pneumovax) 11/03/2015,02/09/2006 Seasonal [...] esophagitis DM type 2 causing vascular disease ([facility]) Chronic respiratory failure with hypercapnia (HCC) Lumbar disc herniation Obstructive sleep apnea Restrictive lung disease secondary to obesity COPD, moderate ([facility]) Cortical age-related cataract, right eye Constipation History of diabetic ulcer of foot History of pancreatitis Hx of BKA, left ([facility]) Current Outpatient Medications Medication Sig [...] at bottom of [facility] visit 05/09/24]) 120 mL 4 Pioglitazone HCl [...] TAKE 1 TABLET BY MOUTH TWICE A [id number] Tablet 3 Famotidine 20 MG Oral Tablet (Pepcid) TAKE ONE TABLET BY MOUTH NIGHTLY AT BEDTIME 90 Tablet 3 Spiriva Respimat 2.5 MCG/ACT Inhalation Aerosol Solution (Tiotropium [place] Monohydrate) Inhale 2 Puffs by mouth in the morning. 1 Each 2 No current facility-administered medications for this visit. 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 Current use of insulin ([facility]) 09/13/2017 DDD (degenerative disc disease), cervical 07/12/2019 Diabetes mellitus type 2, insulin dependent ([facility]) 07/05/2017 Diabetic polyneuropathy associated with type 2 diabetes mellitus ([facility]) 07/24/2016 Displacement of lumbar intervertebral disc without myelopathy DM type 2, goal: symptom mgmt ([facility]) 09/13/2017 DM type 2, not at goal ([facility]) Dyslipidemia, goal LDL below 70 07/24/2016 Gastroesophageal reflux disease without esophagitis 05/07/2020 Gastroparesis 08/27/2015 GERD (gastroesophageal reflux disease) History of DVT (deep vein thrombosis) 04/19/2019 HTN, goal below 140/90 12/23/2015 Per HTN Protocol #27. HTN, goal: symptom mgmt only 09/13/2017 IBS (irritable bowel syndrome) 08/27/2015 Intellectual disability 10/25/2019 Major depressive disorder, recurrent, severe without psychotic features ([facility]) 12/22/2016 Obesity, Class II, BMI 35-39.9, isolated (see actual BMI) 04/19/2019 OTHER osseochondrosis ankle Primary localized osteoarthrosis, lower leg Sleep apnea, obstructive Tobacco use disorder 12/22/2016 Type 2 diabetes mellitus with hemoglobin A1c goal of less than 8.0% ([facility]) 07/05/2017 Past Surgical History: Procedure Laterality Date ARTHO,SHOUL,W/ROTATOR CUFF Right 12/01/2019 ARTHROSCOPY SHOULDER ROTATOR CUFF performed by Judith Condon DO at OR [facility] COLONOSCOPY, DIAGNOSTIC (RECTUM) 04/18/2015 adenomatous polyp, repeat 5 yrs/[facility] COLONOSCOPY, DIAGNOSTIC (RECTUM) 04/15/2023 poor prep, repeat / [facility] COLONOSCOPY, DIAGNOSTIC (RECTUM) N/A 02/22/2024 normal/recall 5 years/COLONOSCOPY FLEXIBLE PROXIMAL DIAGNOSTIC performed by Marcela Del Valle MD at OR [facility] EGD, FLEXIBLE, DIAGNOSTIC 10/17/2014 mild-mod inflammation, repeat 1-2 mo/[facility] EGD, FLEXIBLE, DIAGNOSTIC 04/17/2015 normal bx/inpt [facility] EGD, FLEXIBLE, DIAGNOSTIC 05/08/2019 reflux esophagitis, gastritis, duodenitis, repeat 6 wks / [facility] EGD, FLEXIBLE, DIAGNOSTIC 08/18/2019 normal-EGD/[place] EGD, FLEXIBLE, DIAGNOSTIC N/A 05/02/2020 biopsies normal/EGD EGD, FLEXIBLE, DIAGNOSTIC N/A 02/22/2024 antral gastritis/biopsies normal/ESOPHAGOGASTRODUODENOSCOPY (EGD), FLEXIBLE, TRANSORAL, DIAGNOSTIC performed by Marcela Del Valle MD at OR [facility] INJECT DX/THER SUBSTANCE INTERLAMINAR CERVICAL/THORACIC W IMAGE GUIDE 08/17/2019 INJECTION SPINE LUMBAR CERVICAL OR THORACIC performed by Dario Nails DO at OR [facility] KNEE ARTHROSCOPY, DIAGNOSTIC l knee REMOVAL OF TONSILS, UNDER AGE 12 SHOULDER ARTHROSCOPY, BICEPS TENODESIS Right 12/01/2019 ARTHROSCOPY SHOULDER BICEP TENODESIS [facility] SHOULDER ARTHROSCOPY/DECOMPRESSION Right 12/01/2019 ARTHROSCOPY SHOULDER SUBACROMIAL DECOMPRESSION performed by Judith Condon DO at OR [facility] Review of patient's allergies indicates: Allergen Reactions [...] Stability Do you currently live in a penitentiary or have no steady place to sleep [...] nourished, presents wheelchair today due to a oistv-adp-miit amputation on the left lower extremity, with [...] This chart was completed in part utilizing raksul Speech Voice Recognition Software. Grammatical errors, random [...] 07/18/2024 10:30 AM EDT Office [place] Pharmacy, [place] [address] [place] [address] [facility] [address] [facility] [place] [address] 08/02/2024 11:12 AM EDT Hospital Encounter OR [facility], Operating Room, [facility] - 4th Floor [address] [place] [address] [place] [address] Belen Jones, DO [address] [place] [address] 08/02/2024 11:12 AM EDT - 08/02/2024 11:56 AM EDT Surgery OR [facility], Operating Room, [facility] - 4th Floor [address] [place] [address] Belen Jones, DO [address] [place] [address] ESOPHAGOGASTRODUODENOSCOPY (EGD), FLEXIBLE, TRANSORAL, ENDOSCOPIC ULTRASOUND 08/18/2024 11:00 AM EDT Office [facility] [address] [facility] [phone] Velasquez Valencia MD [address] [place] [address] 07/09/2025 10:00 AM EDT Office Visit Pulmonary Medicine, [facility] [address] [place] [address] Vishal Wallace [facility] [address] [facility] [address] Scheduled Procedures Name Priority Associated Diagnoses Date/Ti ma ESOPHAGOGASTRODUODENOSCOPY ( EGD), FLEXIBLE, TRANSORAL, ENDOSCOPIC ULTRASOUND [...] 2018 DISCUSS TOBACCO CESSATION (REFER TO SMARTSET #6593) 10/16/2023 10/16/2022 Zoster Vaccines (1 of 2) [...] this encounter Medical Devices Implanted Type Area Assembler Convertible Top Device Identifier Shelf Expiration Date Model / Serial / Lot Suture Kiana Dbl Load 4.75mm - [id number] Implanted:Qty: 1 on 12/01/2019 by Judith Condon, DO at OR [facility] Right: Shoulder [employer] 07/17/2021 AR-2324BCT -2 / / [id number] Suture Kiana Dbl Load 5.5mm - [id number] Implanted:Qty: 1 on 12/01/2019 by Judith Condon, at OR [facility] Right: Shoulder [employer] 09/16/2021 AR-2323BCT -2 / / [id number] documented as of this encounter Procedures Procedure [...] IMPRESSION Mild osteoarthritis. Augie Dejesus PA-C RADIOLOGY ([facility]) documented in this encounter Visit [...] Directives occurred with: Not Discussed Care Teams Vp Transportation Relationship Specialty Start Date End Date Velasquez Valencia MD [address] [facility] [place] [address] PCP - General Family Medicine 09/09/22 documented as of this encounter
--- OUTSIDE RECORDS SUMMARY | 2024-07-14 04:35 | External Medical Summary | Summary of Care ---
Author Name Unknown Organization [facility] Address [address] [facility] [place] [address] Phone [phone] Care Team Providers Care Expansion Envelope Maker Hand Name Role Phone Velasquez Valencia MD Primary Care Provider +1- [phone] Reason for Visit * Reason Onset Date Comments Precert Denied 07/04/2024 Encounter Details Date Type Department Care Team (Late st Contact Info) Description 07/04/2024 Telephone Orthopaedics [facility] [address] [place] [address] Augie Dejesus PA-C [address] [place] [id number] Precert Denied Allergies Active Allergy Reactions Criticality Noted Date Comments Cefaclor Unknown 07/26/2018 As child Empagliflozin Other (Please comment) 05/16/2021 DKA with hospitalization Nsaids High 04/19/2019 Gastric problems Other Reaction(s): gastroparesis, kidney problems, use with caution : hx esophagus damage documented as of this encounter (statuses as of 07/07/2024) Medications Medication Sig Dispensed Refills Start Date [...] over 140 [see chart at bottom of [facility] visit 05/09/24], Reported on 05/09/2024 Pioglitazone HCl [...] A1c goal of less than 7.0% ([facility]) Use to check blood sugars once daily [...] A1c goal of less than 7.0% ([facility]) Take 2 Tablets by mouth in the [...] Respimat 2.5 MCG/ACT Inhalation Aerosol Solution (Tiotropium [place] Monohydrate) Inhale 2 Puffs by mouth in the morning. 1 Each 2 07/04/2024 4 Active documented as of this encounter (statuses as of 07/07/2024) Active Problems Problem Noted Date Diagnosed Date [...] as of this encounter (statuses as of 07/07/2024) Resolved Problems Problem Noted Date Diagnosed Date [...] as of this encounter (statuses as of 07/07/2024) Immunizations Name Administration Dates Next Due COVID-19 mRNA, LNP-s, No Pre serve, 2-Dose Series (Poynt) 10/21/2021,03/01/2021,02/07/2021 H1N1 2009 Influenza, IM 11/04/2009 Pneumococcal Conjugate Vacci ne, 20-valent ([id number]) 07/09/2023 Pneumococcal Polysaccharide PPV23 (Pneumovax) 11/03/2015,02/09/2006 Seasonal [...] 07/07/2024 10:22 AM EDT They are the [facility] guidelines for approval. He can try call [facility] Family directly. * Telephone Encounter - Rhea [...] Munson OSA - 07/05/2024 8:57 AM EDT [facility] Authorization Submission Submission Information: Medication: EUFLEXXA Portal used: [facility] Insurance: [facility] Authorization #/Lombardo: [id number] * Telephone Encounter - Rhea Carr MED ASSIST - 07/04/2024 3:33 PM EDT Orthopaedics Pre-Cert Request Medication/Disease State Information: Medication: Hyaluronate- Euflexxa (J7323): inject 20 mg (2 mL) once weekly for 3 weeks (total of 3 injections). Route to n40800 Is there radiological proof(x-ray, cat scan, mri [...] 07/18/2024 10:30 AM EDT Office Visit Pharmacy, [address] [address] [facility] [address] [place] [address] 08/02/2024 11:12 AM EDT Hospital Encounter OR [facility], Operating Room, [facility] - 4th Floor [address] [place] [phone] Belen Jones, DO [address] [place] [address] 08/02/2024 11:12 AM EDT - 08/02/2024 11:56 AM EDT Surgery OR [facility], Operating Room, [facility] - 4th Floor [address] [facility] [place] [address] Belen Jones, DO [address] [place] [address] ESOPHAGOGASTRODUODENOSCOPY (EGD), FLEXIBLE, TRANSORAL, ENDOSCOPIC ULTRASOUND 08/18/2024 11:00 AM EDT Office Visit [facility] [address] [facility], [place] [phone] Velasquez Valencia MD [address] [place] [facility] [place] [address] 07/09/2025 10:00 AM EDT Office Visit Pulmonary Medicine, [facility] [address] [place] [address] Vishal Wallace MD [address] [place] [address] Scheduled Procedures Name Priority Associated Diagnoses Date/Ti [...] or Tdap) 05/01/2028 05/01/2018 Colonoscopy 02/21/2029 02/22/2024, 04/2024, 04/15/2023, Additional history exists Colorectal Cancer [...] this encounter Medical Devices Implanted Type Area Veterans Service Officer Device Identifier Shelf Expiration Date Model / Serial / Lot Suture Nicholson Dbl Load 4.75mm - [id number] Implanted:Qty: 1 on 12/01/2019 by [facility] Right: Shoulder [employer] 07/17/2021 AR-2324BCT -2 / / [id number] Suture Nicholson Dbl Load 5.5mm - [id number] Implanted:Qty: 1 on 12/01/2019 by Judith Condon, at OR [facility] Right: Shoulder [employer] 09/16/2021 AR-2323BCT -2 / / [id number] documented as of this encounter Advance Directives [...] Directives occurred with: Not Discussed Care Teams Expansion Envelope Maker Hand Relationship Specialty Start Date End Date Velasquez Valencia MD [address] [facility] [place] [address] PCP - General Family Medicine 09/09/22 documented as of this encounter
--- OUTSIDE RECORDS SUMMARY | 2024-07-14 04:35 | External Medical Summary | Summary of Care ---
Author Name Unknown Organization [facility] Address [address] [facility] [place] [address] Phone [phone] Care Team Providers Care Family Medicine Chair Name Role Phone Velasquez Valencia MD Primary Care Provider +1- [phone] Reason for Visit * Reason Onset Date Comments Precert Denied 07/04/2024 Encounter Details Date Type Department Care Team (Late st Contact Info) Description 07/04/2024 Telephone Orthopaedics [facility] [address] [place] [address] Augie Dejesus PA-C [address] [place] [phone] Precert Denied Allergies Active Allergy Reactions Criticality [...] over 140 [see chart at bottom of [facility] visit 05/09/24], Reported on 05/09/2024 Pioglitazone [...] hemoglobin A1c goal of less than 7.0% ([facility]) Use to check blood sugars once daily [...] hemoglobin A1c goal of less than 7.0% ([facility]) Take 2 Tablets by mouth in the [...] Respimat 2.5 MCG/ACT Inhalation Aerosol Solution (Tiotropium Energy Monohydrate) Inhale 2 Puffs by mouth in [...] mRNA, LNP-s, No Pre serve, 2-Dose Series ([employer]) 10/21/2021,03/01/2021,02/07/2021 H1N1 2009 Influenza, IM 11/04/2009 Pneumococcal Conjugate Vacci ne, 20-valent ([id number]) 07/09/2023 Pneumococcal Polysaccharide PPV23 (Pneumovax) 11/03/2015,02/09/2006 Seasonal [...] Munson OSA - 07/05/2024 8:57 AM EDT [facility] Authorization Submission Submission Information: Medication: EUFLEXXA Portal used: [facility] Insurance: [facility] Authorization #/Lombardo: [id number] * Telephone Encounter - Rhea Carr MED ASSIST - 07/04/2024 3:33 PM EDT Orthopaedics Pre-Cert Request Medication/Disease State Information: Medication: Hyaluronate- Euflexxa (J7323): inject 20 mg (2 mL) once weekly for 3 weeks (total of 3 injections). Route to t32131 Is there radiological proof(x-ray, cat scan, mri [...] Description 07/18/2024 10:30 AM EDT Office Visit [address] [address] [facility] [address] [place] [address] 08/02/2024 11:12 AM EDT Hospital Encounter OR [facility], Operating Room, [facility] - 4th Floor [address] [place] [address] Belen Jones, DO [address] [place] [address] 08/02/2024 11:12 AM EDT - 08/02/2024 11:56 AM EDT Surgery OR [facility], Operating Room, [facility] - 4th Floor [address] [place] [phone] Belen Jones, DO [address] [place] [address] ESOPHAGOGASTRODUODENOSCOPY (EGD), FLEXIBLE, TRANSORAL, ENDOSCOPIC ULTRASOUND 08/18/2024 11:00 AM EDT Office [place] [address] [place] [phone] Velasquez Valencia MD [address] [facility] [place] [address] 07/09/2025 10:00 AM EDT Office Visit Pulmonary Medicine, [facility] [address] [place] [address] Vishal Wallace MD [address] [place] [address] Scheduled Procedures Name Priority Associated Diagnoses Date/Ti [...] this encounter Medical Devices Implanted Type Area Restorer Lace And Textiles Device Identifier Shelf Expiration Date Model / Serial / Lot Suture [place]wood Dbl Load 4.75mm - [id number] Implanted:Qty: 1 on 12/01/2019 by Judith Condon DO at [facility] Right: Shoulder [employer] 07/17/2021 AR-2324BCT -2 / / [id number] Suture [place]wood Dbl Load 5.5mm - [id number] Implanted:Qty: 1 on 12/01/2019 by Judith Condon DO at OR [facility] Right: Shoulder [employer] 09/16/2021 AR-2323BCT -2 / / [id number] documented as of this encounter Advance Directives [...] Directives occurred with: Not Discussed Care Teams Family Medicine Chair Relationship Specialty Start Date End Date Velasquez Valencia MD [address] [place] [address] PCP - General Family Medicine 09/09/22 documented as of this encounter
--- OUTSIDE RECORDS SUMMARY | 2024-07-14 04:35 | External Medical Summary | Summary of Care ---
Author Name Unknown Organization [facility] Address [address] [place] [facility] [place] [address] Phone [phone] Care Team Providers Care Director Client Services Name Role Phone Velasquez Valencia MD Primary Care Provider +1- [phone] Reason for Visit * Reason Onset Date Comments Order Request 07/06/2024 [facility] Encounter Details Date Type Department Care Team (Late st Contact Info) Description 07/06/2024 Telephone [facility] [address] [place] [address] Velasquez Valencia MD [address] [place] [address] Order Request ([facility]) Allergies Active Allergy Reactions Criticality Noted Date Comments Cefaclor Unknown 07/26/2018 As child Empagliflozin Other (Please comment) 05/16/2021 DKA with hospitalization Nsaids High 04/19/2019 Gastric problems Other Reaction(s): gastroparesis, kidney problems, use with caution : hx esophagus damage documented as of this encounter (statuses as of 07/06/2024) Medications Medication Sig Dispensed Refills Start Date [...] over 140 [see chart at bottom of [facility] visit 05/09/24], Reported on 05/09/2024 Pioglitazone [...] goal of less than 7.0% ([facility]) Use to check blood sugars once [...] goal of less than 7.0% ([facility]) Take 2 Tablets by mouth in [...] Respimat 2.5 MCG/ACT Inhalation Aerosol Solution (Tiotropium [place] Monohydrate) Inhale 2 Puffs by mouth in the morning. 1 Each 2 07/04/2024 4 Active documented as of this encounter (statuses as of 07/06/2024) Active Problems Problem Noted Date Diagnosed Date [...] as of this encounter (statuses as of 07/06/2024) Resolved Problems Problem Noted Date Diagnosed Date [...] as of this encounter (statuses as of 07/06/2024) Immunizations Name Administration Dates Next Due COVID-19 mRNA, LNP-s, No Pre serve, 2-Dose Series (Web[employer]) 10/21/2021,03/01/2021,02/07/2021 H1N1 2009 Influenza, IM 11/04/2009 Pneumococcal Conjugate Vacci ne, 20-valent ([id number]) 07/09/2023 Pneumococcal Polysaccharide PPV23 (Pneumovax) 11/03/2015,02/09/2006 Seasonal Influenza, PF, 6 M & above, IM , (FluLaval or Fluzone) 07/09/2023,10/16/2022,07/31/2021,09/16,07/12/2019,07/05/2018 Seasonal Influenza, Quadriva lent, No Preserve, IM 05/24/2017,07/24/2016 Seasonal Influenza, Trivalen t, (IIV3), PF, (Fluzone) 07/04/2024 Seasonal Influenza, Trivalen t, (IIV3), with Preserv, (Fluzone) 06/27/2015,07/07/2010,09/02/2009,10/26 TDAP (age 10 and older)(Boostrix) 05/01/2018 [...] Telephone Encounter - Velasquez Valencia MD - 07/06/2024 8:38 PM EDT Signed - at my desk * Telephone Encounter - Maura Ramirez LPN - 07/06/2024 2:33 PM EDT Form from [address] regarding a SWO placed on provider's desk for review, signature, and faxed. documented in this encounter Plan of Treatment Upcoming Encounters Date Type Department Care Team (Latest Contact Info) Description 07/18/2024 10:30 AM EDT Office [facility] [place] [address] [facility] [address] [facility] [address] [facility] [address] 08/02/2024 11:12 AM EDT Hospital Encounter OR [facility], Operating Room, [facility] - 4th Floor [address] [facility] [place] [address] Belen Jones, DO [address] [place] [address] 08/02/2024 11:12 AM EDT - 08/02/2024 11:56 AM EDT Surgery OR [facility], Operating Room, [facility] - 4th Floor [address] [facility] [place] [address] Belen Jones, DO [address] [place] [address] ESOPHAGOGASTRODUODENOSCOPY (EGD), FLEXIBLE, TRANSORAL, ENDOSCOPIC ULTRASOUND 08/18/2024 11:00 AM EDT Office Visit [facility] [address] [facility] [place] [phone] Velasquez Valencia MD [address] [facility] [address] 07/09/2025 10:00 AM EDT Office Visit Pulmonary Medicine, [facility] [address] [place] [address] Vishal Wallace MD [address] [place] [address] Scheduled Procedures Name Priority Associated Diagnoses [...] this encounter Medical Devices Implanted Type Area Shift Manager Device Identifier Shelf Expiration Date Model / Serial / Lot Suture Zuni Dbl Load 4.75mm - [id number] Implanted:Qty: 1 on 12/01/2019 by Judith Condon, at OR [facility] Right: Shoulder [employer] 07/17/2021 AR-2324BCT -2 / / [id number] Suture Zuni Dbl Load 5.5mm - [id number] Implanted:Qty: 1 on 12/01/2019 by Judith Condon, at OR [facility] Right: Shoulder [employer] 09/16/2021 AR-2323BCT -2 / / [id number] documented as of this encounter Advance Directives [...] occurred with: Not Discussed Care Teams Director Client Services Relationship Specialty Start Date End Date Velasquez Valencia MD [address] [place] [address] PCP - General Family Medicine 09/09/22 documented as of this encounter
--- OUTSIDE RECORDS SUMMARY | 2024-07-14 04:35 | External Medical Summary | Summary of Care ---
Author Name Unknown Organization [facility] Address [address] [place] [address] Phone [phone] Care Team Providers Care Budget Clerk Name Role Phone Velasquez Valencia MD Primary Care Provider +1- [phone] Reason for Visit * Reason Onset Date Comments Precert Denied 07/04/2024 Encounter Details Date Type Department Care Team (Late st Contact Info) Description 07/04/2024 Telephone Orthopaedics [facility] [address] [place] [address] Augie Dejesus PA-C [address] [place] [phone] Precert Denied Allergies Active Allergy Reactions Criticality Noted Date Comments Cefaclor Unknown 07/26/2018 As child Empagliflozin Other (Please comment) 05/16/2021 DKA with hospitalization Nsaids High 04/19/2019 Gastric problems Other Reaction(s): gastroparesis, kidney problems, use with caution : hx esophagus damage documented as of this encounter (statuses as of 07/05/2024) Medications Medication Sig Dispensed Refills Start Date [...] over 140 [see chart at bottom of [facility] visit 05/09/24], Reported on 05/09/2024 [...] less than 7.0% ([facility]) Use to check blood sugars once daily [...] less than 7.0% ([facility]) Take 2 Tablets by mouth in the [...] Respimat 2.5 MCG/ACT Inhalation Aerosol Solution (Tiotropium [place] Monohydrate) Inhale 2 Puffs by mouth in the morning. 1 Each 2 07/04/2024 4 Active documented as of this encounter (statuses as of 07/05/2024) Active Problems Problem Noted Date Diagnosed Date [...] as of this encounter (statuses as of 07/05/2024) Resolved Problems Problem Noted Date Diagnosed Date [...] as of this encounter (statuses as of 07/05/2024) Immunizations Name Administration Dates Next Due COVID-19 mRNA, LNP-s, No Pre serve, 2-Dose Series (Applauze) 10/21/2021,03/01/2021,02/07/2021 H1N1 2009 Influenza, IM 11/04/2009 Pneumococcal Conjugate Vacci ne, 20-valent ([id number]) 07/09/2023 Pneumococcal Polysaccharide PPV23 (Pneumovax) 11/03/2015,02/09/2006 Seasonal [...] Munson OSA - 07/05/2024 8:57 AM EDT [facility] Authorization Submission Submission Information: Medication: EUFLEXXA Portal used: [facility] Insurance: [facility] Authorization #/Lombardo: [id number] * Telephone Encounter - Rhea Carr MED ASSIST - 07/04/2024 3:33 PM EDT Orthopaedics Pre-Cert Request Medication/Disease State Information: Medication: Hyaluronate- Euflexxa (J7323): inject 20 mg (2 mL) once weekly for 3 weeks (total of 3 injections). Route to [id number] Is there radiological proof(x-ray, cat scan, mri [...] Description 07/18/2024 10:30 AM EDT Office Visit [facility] [place] [address] [facility] [address] [facility] [address] [facility] [address] 08/02/2024 11:12 AM EDT Hospital Encounter OR [facility], Operating Room, [facility] - 4th Floor [address] [facility] [place] [phone] Belen Jones, DO [address] [place] [address] 08/02/2024 11:12 AM EDT - 08/02/2024 11:56 AM EDT Surgery OR [facility], Operating Room, [facility] - 4th Floor [address] [facility] [place] [phone] Belen Jones, DO [address] [place] [address] ESOPHAGOGASTRODUODENOSCOPY (EGD), FLEXIBLE, TRANSORAL, ENDOSCOPIC ULTRASOUND 08/18/2024 11:00 AM EDT Office Visit [facility] [address] [facility] [phone] Velasquez Valencia MD [address] [facility] [address] 07/09/2025 10:00 AM EDT Office Visit Pulmonary Medicine, [facility] [address] [place] [address] Vishal Wallace MD [address] [place] [address] Scheduled Procedures Name Priority Associated Diagnoses Date/Ti [...] this encounter Medical Devices Implanted Type Area Audiology Doctor Device Identifier Shelf Expiration Date Model / Serial / Lot Suture [place] Dbl Load 4.75mm - [id number] Implanted:Qty: 1 on 12/01/2019 by Judith Condon DO at OR [facility] Right: Shoulder [employer] 07/17/2021 AR-2324BCT -2 / / [id number] Suture [place] Dbl Load 5.5mm - [id number] Implanted:Qty: 1 on 12/01/2019 by Judith Condon DO at OR [facility] Right: Shoulder [employer] 09/16/2021 AR-2323BCT -2 / / [id number] documented as of this encounter Advance Directives * Full Code (Latest Code Status on File) Date Activated Date Inactivated Comments 04/10/2024 8:31 PM 04/13/2024 5:56 PM This order reflects the patients wishes [...] Directives occurred with: Not Discussed Care Teams Budget Clerk Relationship Specialty Start Date End Date Velasquez Valencia MD [address] [facility] [place] [address] PCP - General Family Medicine 09/09/22 documented as of this encounter
--- OUTSIDE RECORDS SUMMARY | 2024-07-14 04:35 | External Medical Summary | Summary of Care ---
Author Name Unknown Organization [facility] Address [address] [place] [address] Phone [phone] Care Team Providers Care Bench Worker Hollow Handle Name Role Phone Velasquez Valencia MD Primary Care Provider +1- [phone] Reason for Visit * Reason Onset Date Comments Precert Denied 07/04/2024 Encounter Details Date Type Department Care Team (Late st Contact Info) Description 07/04/2024 Telephone Orthopaedics [facility] [address] [place] [address] Augie Dejesus PA-C [address] [place] [address] Precert Denied Allergies Active Allergy Reactions Criticality [...] over 140 [see chart at bottom of [facility] visit 05/09/24], Reported on 05/09/2024 [...] goal of less than 7.0% ([facility]) Use to check blood sugars [...] goal of less than 7.0% ([facility]) Take 2 Tablets by mouth [...] Respimat 2.5 MCG/ACT Inhalation Aerosol Solution (Tiotropium [place] Monohydrate) Inhale 2 Puffs by mouth in [...] mRNA, LNP-s, No Pre serve, 2-Dose Series (DynamicOps) 10/21/2021,03/01/2021,02/07/2021 H1N1 2009 Influenza, IM 11/04/2009 Pneumococcal Conjugate Vacci ne, 20-valent ([id number]) 07/09/2023 Pneumococcal Polysaccharide PPV23 (Pneumovax) 11/03/2015,02/09/2006 Seasonal [...] encounter Miscellaneous Notes * Telephone Encounter - Allison Guzman OSA [...] Munson OSA - 07/05/2024 8:57 AM EDT [facility] Authorization Submission Submission Information: Medication: EUFLEXXA Portal used: PromptPA Insurance: [facility] Authorization #/Lombardo: [id number] * Telephone Encounter - Rhea Carr MED ASSIST - 07/04/2024 3:33 PM EDT Orthopaedics Pre-Cert Request Medication/Disease State Information: Medication: Hyaluronate- Euflexxa (J7323): inject 20 mg (2 mL) once weekly for 3 weeks (total of 3 injections). Route to [id number] Is there radiological proof(x-ray, cat scan, mri [...] 07/18/2024 10:30 AM EDT Office Visit Pharmacy, [address] [address] [facility] [address] [place] [facility] [place] [address] 08/02/2024 11:12 AM EDT Hospital Encounter OR [facility], Operating Room, [facility] - 4th Floor [address] [place] [phone] Belen Jones, DO [address] [place] [address] 08/02/2024 11:12 AM EDT - 08/02/2024 11:56 AM EDT Surgery OR [facility], Operating Room, [facility] - 4th Floor [address] [place] [phone] Belen Jones, DO [address] [place] [address] ESOPHAGOGASTRODUODENOSCOPY (EGD), FLEXIBLE, TRANSORAL, ENDOSCOPIC ULTRASOUND 08/18/2024 11:00 AM EDT Office Visit [facility] [address] [place] [phone] Velasquez Valencia MD [address] [place] [address] 07/09/2025 10:00 AM EDT Office Visit Pulmonary Medicine, [facility] [address] [place] [address] Vishal Wallace MD [address] [facility] [address] Scheduled Procedures Name Priority Associated Diagnoses Date/Ti [...] 2018 DISCUSS TOBACCO CESSATION (REFER TO SMARTSET #3895) 10/16/2023 10/16/2022 Zoster Vaccines (1 of 2) [...] this encounter Medical Devices Implanted Type Area Mac Developer Device Identifier Shelf Expiration Date Model / Serial / Lot Suture [place] Dbl Load 4.75mm - [id number] Implanted:Qty: 1 on 12/01/2019 by Judith Condon DO at OR [facility] Right: Shoulder [employer] 07/17/2021 AR-2324BCT -2 / / [id number] Suture [place] Dbl Load 5.5mm - [id number] Implanted:Qty: 1 on 12/01/2019 by Judith Condon, at OR [facility] Right: Shoulder [employer] 09/16/2021 AR-2323BCT -2 / / [id number] documented as of this encounter Advance Directives [...] Directives occurred with: Not Discussed Care Teams Bench Worker Hollow Handle Relationship Specialty Start Date End Date Velasquez Valencia MD [address] [place] [address] PCP - General Family Medicine 09/09/22 documented as of this encounter
--- OUTSIDE RECORDS SUMMARY | 2024-07-14 04:35 | External Medical Summary | Summary of Care ---
Author Name Unknown Organization [facility] Address [address] [facility] [place] [address] Phone [phone] Care Team Providers Care Heel Nailing Machine Operator Name Role Phone Velasquez Valencia MD Primary Care Provider +1- [phone] Reason for Visit * Reason Onset Date Comments Precert Denied 07/04/2024 Encounter Details Date Type Department Care Team (Late st Contact Info) Description 07/04/2024 Telephone Orthopaedics [facility] [address] [place] [address] Augie Dejesus PA-C [address] [place] [phone] Precert Denied Allergies Active Allergy Reactions Criticality [...] over 140 [see chart at bottom of [facility] visit 05/09/24], Reported on 05/09/2024 Pioglitazone HCl [...] of less than 7.0% ([facility]) Use to check blood sugars [...] of less than 7.0% ([facility]) Take 2 Tablets by mouth [...] Respimat 2.5 MCG/ACT Inhalation Aerosol Solution (Tiotropium [place] Monohydrate) Inhale 2 Puffs by mouth in [...] mRNA, LNP-s, No Pre serve, 2-Dose Series ([place]) 10/21/2021,03/01/2021,02/07/2021 H1N1 2009 Influenza, IM 11/04/2009 Pneumococcal Conjugate Vacci ne, 20-valent ([id number]) 07/09/2023 Pneumococcal Polysaccharide PPV23 (Pneumovax) 11/03/2015,02/09/2006 Seasonal [...] Munson OSA - 07/05/2024 8:57 AM EDT [facility] Authorization Submission Submission Information: Medication: EUFLEXXA Portal used: [facility] Insurance: [facility] Authorization #/Lombardo: [id number] * Telephone Encounter - Rhea Carr MED ASSIST - 07/04/2024 3:33 PM EDT Orthopaedics Pre-Cert Request Medication/Disease State Information: Medication: Hyaluronate- Euflexxa (J7323): inject 20 mg (2 mL) once weekly for 3 weeks (total of 3 injections). Route to [id number] Is there radiological proof(x-ray, cat scan, mri [...] Description 07/18/2024 10:30 AM EDT Office Visit [address] [address] [facility] [address] [place] [address] 08/02/2024 11:12 AM EDT Hospital Encounter OR [facility], Operating Room, [facility] - 4th Floor [address] [place] [phone] Belen Jones, DO [address] [place] [address] 08/02/2024 11:12 AM EDT - 08/02/2024 11:56 AM EDT Surgery OR [facility], Operating Room, [facility] - 4th Floor [address] [place] [phone] Belen Jones, DO [address] [place] [address] ESOPHAGOGASTRODUODENOSCOPY (EGD), FLEXIBLE, TRANSORAL, ENDOSCOPIC ULTRASOUND 08/18/2024 11:00 AM EDT Office Visit [address] [place] [phone] Velasquez Valencia MD [address] [facility] [place] [address] 07/09/2025 10:00 AM EDT Office Visit Pulmonary Medicine, [facility] [address] [place] [address] Vishal Wallace MD [address] [place] [address] Scheduled Procedures Name Priority Associated Diagnoses Date/Ti [...] this encounter Medical Devices Implanted Type Area Oil Well Perforator Operator Device Identifier Shelf Expiration Date Model / Serial / Lot Suture [place] Dbl Load 4.75mm - [id number] Implanted:Qty: 1 on 12/01/2019 by Judith Condon DO at [facility] Right: Shoulder [employer] 07/17/2021 AR-2324BCT -2 / / [id number] Suture [place] Dbl Load 5.5mm - [id number] Implanted:Qty: 1 on 12/01/2019 by Judith Condon DO at OR [facility] Right: Shoulder [employer] 09/16/2021 AR-2323BCT -2 / / [id number] documented as of this encounter Advance Directives [...] Directives occurred with: Not Discussed Care Teams Heel Nailing Machine Operator Relationship Specialty Start Date End Date Velasquez Valencia MD [address] [place] [address] PCP - General Family Medicine 09/09/22 documented as of this encounter
--- OUTSIDE RECORDS SUMMARY | 2024-07-14 04:35 | External Medical Summary | Summary of Care ---
Author Name Unknown Organization [facility] Address [address] [place] [address] Phone [phone] Care Team Providers Care Outbound Sales Consultant Name Role Phone Velasquez Valencia MD Primary Care Provider +1- [phone] Reason for Visit * Reason Onset Date Comments Precert Denied 07/04/2024 Encounter Details Date Type Department Care Team (Late st Contact Info) Description 07/04/2024 Telephone Orthopaedics [facility] [address] [place] [address] Augie Dejesus PA-C [address] [place] [phone] Precert Denied Allergies Active Allergy Reactions Criticality [...] over 140 [see chart at bottom of [facility] visit 05/09/24], Reported on 05/09/2024 [...] goal of less than 7.0% ([facility]) Use to check blood sugars [...] goal of less than 7.0% ([facility]) Take 2 Tablets by mouth [...] Respimat 2.5 MCG/ACT Inhalation Aerosol Solution (Tiotropium [place] Monohydrate) Inhale 2 Puffs by mouth in [...] mRNA, LNP-s, No Pre serve, 2-Dose Series (Hitpost) 10/21/2021,03/01/2021,02/07/2021 H1N1 2009 Influenza, IM 11/04/2009 Pneumococcal Conjugate Vacci ne, 20-valent ([id number]) 07/09/2023 Pneumococcal Polysaccharide PPV23 (Pneumovax) 11/03/2015,02/09/2006 Seasonal [...] encounter Miscellaneous Notes * Telephone Encounter - Anthony Brannon OSA [...] Munson OSA - 07/05/2024 8:57 AM EDT [facility] Authorization Submission Submission Information: Medication: EUFLEXXA Portal used: [facility] Insurance: [facility] Authorization #/Lombardo: [id number] * Telephone Encounter - Rhea Carr MED ASSIST - 07/04/2024 3:33 PM EDT Orthopaedics Pre-Cert Request Medication/Disease State Information: Medication: Hyaluronate- Euflexxa (J7323): inject 20 mg (2 mL) once weekly for 3 weeks (total of 3 injections). Route to [id number] Is there radiological proof(x-ray, cat scan, mri [...] Description 07/18/2024 10:30 AM EDT Office Visit [facility] [address] [facility] [address] [facility] [address] [facility] [address] 08/02/2024 11:12 AM EDT Hospital Encounter OR [facility], Operating Room, [facility] - 4th Floor [address] [facility] [place] [address] Belen Jones, DO [address] [place] [address] 08/02/2024 11:12 AM EDT - 08/02/2024 11:56 AM EDT Surgery OR [facility], Operating Room, [facility] - 4th Floor [address] [facility] [place] [address] Belen Jones, DO [address] [place] [address] ESOPHAGOGASTRODUODENOSCOPY (EGD), FLEXIBLE, TRANSORAL, ENDOSCOPIC ULTRASOUND 08/18/2024 11:00 AM EDT Office Visit [facility] [address] [facility] [phone] Velasquez Valencia MD [address] [facility] [address] 07/09/2025 10:00 AM EDT Office Visit Pulmonary Medicine, [facility] [address] [place] [address] Vishal Wallace MD [address] [place] [address] Scheduled Procedures Name Priority Associated Diagnoses Date/Ti [...] or Tdap) 05/01/2028 05/01/2018 Colonoscopy 02/21/2029 02/22/2024, 05/04/2024, 04/15/2023, Additional history exists Colorectal Cancer Screening [...] this encounter Medical Devices Implanted Type Area Anthropology Instructor Device Identifier Shelf Expiration Date Model / Serial / Lot Suture [place] Dbl Load 4.75mm - [id number] Implanted:Qty: 1 on 12/01/2019 by Judith Condon DO at OR [facility] Right: Shoulder [employer] 07/17/2021 AR-2324BCT -2 / / [id number] Suture [place] Dbl Load 5.5mm - [id number] Implanted:Qty: 1 on 12/01/2019 by Judith Condon DO at [facility] Right: Shoulder [employer] 09/16/2021 AR-2323BCT -2 / / [id number] documented as of this encounter Advance Directives [...] Directives occurred with: Not Discussed Care Teams Outbound Sales Consultant Relationship Specialty Start Date End Date Velasquez Valencia MD [address] [facility] [place] [address] PCP - General Family Medicine 09/09/22 documented as of this encounter
--- OUTSIDE RECORDS SUMMARY | 2024-07-14 04:35 | External Medical Summary | Summary of Care ---
Author Name Unknown Organization [facility] Address [address] [facility] [place] [address] Phone [phone] Care Team Providers Care Office Support Clerk Name Role Phone Velasquez Valencia MD Primary Care Provider +1- [phone] Reason for Visit * Reason Onset Date Comments Precert Denied 07/04/2024 Encounter Details Date Type Department Care Team (Late st Contact Info) Description 07/04/2024 Telephone Orthopaedics [facility] [address] [place] [address] Augie Dejesus PA-C [address] [place] [phone] Precert Denied Allergies Active Allergy Reactions Criticality Noted Date Comments Cefaclor Unknown 07/26/2018 As child Empagliflozin Other (Please comment) 05/16/2021 DKA with hospitalization Nsaids High 04/19/2019 Gastric problems Other Reaction(s): gastroparesis, kidney problems, use with caution : hx esophagus damage documented as of this encounter (statuses as of 07/11/2024) Medications Medication Sig Dispensed Refills Start Date [...] over 140 [see chart at bottom of [facility] visit 05/09/24], Reported on 05/09/2024 Pioglitazone [...] Respimat 2.5 MCG/ACT Inhalation Aerosol Solution (Tiotropium [place] Monohydrate) Inhale 2 Puffs by mouth in the morning. 1 Each 2 07/04/2024 4 Active documented as of this encounter (statuses as of 07/11/2024) Active Problems Problem Noted Date Diagnosed Date [...] as of this encounter (statuses as of 07/11/2024) Resolved Problems Problem Noted Date Diagnosed Date [...] as of this encounter (statuses as of 07/11/2024) Immunizations Name Administration Dates Next Due COVID-19 mRNA, LNP-s, No Pre serve, 2-Dose Series (WaveMAX) 10/21/2021,03/01/2021,02/07/2021 H1N1 2009 Influenza, IM 11/04/2009 Pneumococcal Conjugate Vacci ne, 20-valent ([id number]) 07/09/2023 Pneumococcal Polysaccharide PPV23 (Pneumovax) 11/03/2015,02/09/2006 Seasonal [...] 07/07/2024 10:22 AM EDT They are the [facility] guidelines for approval. He can try call [facility] Family directly. * Telephone Encounter - [...] Munson OSA - 07/05/2024 8:57 AM EDT [facility] Authorization Submission Submission Information: Medication: EUFLEXXA Portal used: PromptPA Insurance: [facility] Authorization #/Lombardo: [id number] * Telephone Encounter - Rhea Carr MED ASSIST - 07/04/2024 3:33 PM EDT Orthopaedics Pre-Cert Request Medication/Disease State Information: Medication: Hyaluronate- Euflexxa (J7323): inject 20 mg (2 mL) once weekly for 3 weeks (total of 3 injections). Route to [id number] Is there radiological proof(x-ray, cat scan, mri [...] 07/18/2024 10:30 AM EDT Office Visit Pharmacy, [address] [address] [facility] [address] [place] [address] 08/02/2024 11:12 AM EDT Hospital Encounter OR [facility], Operating Room, [facility] - 4th Floor [address] [place] [phone] Belen Jones, DO [address] [place] [address] 08/02/2024 11:12 AM EDT - 08/02/2024 11:56 AM EDT Surgery OR [facility], Operating Room, [facility] - 4th Floor [address] [place] [phone] Belen Jones, DO [address] [place] [address] ESOPHAGOGASTRODUODENOSCOPY (EGD), FLEXIBLE, TRANSORAL, ENDOSCOPIC ULTRASOUND 08/18/2024 11:00 AM EDT Office Visit [facility] [address] [place] [phone] Velasquez Valencia MD [address] [place] [address] 07/09/2025 10:00 AM EDT Office Visit Pulmonary Medicine, [facility] [address] [place] [address] Vishal Wallace MD [address] [facility] [address] Scheduled Procedures Name Priority Associated Diagnoses Date/Ti [...] 2018 DISCUSS TOBACCO CESSATION (REFER TO SMARTSET #4741) 10/16/2023 10/16/2022 Zoster Vaccines (1 of 2) [...] this encounter Medical Devices Implanted Type Area Domestic Housekeeper Device Identifier Shelf Expiration Date Model / Serial / Lot Suture [place] Dbl Load 4.75mm - [id number] Implanted:Qty: 1 on 12/01/2019 by Judith Condon DO at OR [facility] Right: Shoulder [employer] 07/17/2021 AR-2324BCT -2 / / [id number] Suture [place] Dbl Load 5.5mm - [id number] Implanted:Qty: 1 on 12/01/2019 by Judith Condon, at OR [facility] Right: Shoulder [employer] 09/16/2021 AR-2323BCT -2 / / [id number] documented as of this encounter Advance Directives [...] Directives occurred with: Not Discussed Care Teams Office Support Clerk Relationship Specialty Start Date End Date Velasquez Valencia MD [address] [place] [address] PCP - General Family Medicine 09/09/22 documented as of this encounter
--- OUTSIDE RECORDS SUMMARY | 2024-07-14 04:36 | External Medical Summary | Summary of Care ---
Author Name Unknown Organization [facility] Address [address] [facility] [place] [address] Phone [phone] Care Team Providers Care Framing Mill Operator Name Role Phone Velasquez Valencia MD Primary Care Provider +1- [phone] Reason for Visit * Reason Onset Date Comments Precert In Process 07/04/2024 Charisma FUNES Encounter Details Date Type Department Care Team (Late st Contact Info) Description 07/04/2024 Telephone Orthopaedics [facility] [address] [place] [address] Augie Dejesus PA-C [address] [place] [address] Precert In Process (Charisma FUNES ) Allergies Active Allergy Reactions Criticality Noted Date [...] goal of less than 7.0% ([facility]) Use to check blood sugar once daily [...] goal of less than 7.0% ([facility]) Take 2 Tablets by mouth in [...] Respimat 2.5 MCG/ACT Inhalation Aerosol Solution (Tiotropium [place] Monohydrate) Inhale 2 Puffs by mouth in [...] mRNA, LNP-s, No Pre serve, 2-Dose Series (SendRR) 10/21/2021,03/01/2021,02/07/2021 H1N1 2009 Influenza, IM 11/04/2009 Pneumococcal Conjugate Vacci ne, 20-valent ([id number]) 07/09/2023 Pneumococcal Polysaccharide PPV23 (Pneumovax) 11/03/2015,02/09/2006 Seasonal [...] No 04/19/2024 Does the household have a [facility] source of income? (Household - for ages [...] Munson OSA - 07/05/2024 8:57 AM EDT [facility] Authorization Submission Submission Information: Medication: EUFLEXXA Portal used: PromptPA Insurance: GHP Authorization #/Lombardo: [id number] * Telephone Encounter - Rhea Carr MED ASSIST - 07/04/2024 3:33 PM EDT Orthopaedics Pre-Cert Request Medication/Disease State Information: Medication: Hyaluronate- Euflexxa (J7323): inject 20 mg (2 mL) once weekly for 3 weeks (total of 3 injections). Route to [id number] Is there radiological proof(x-ray, cat scan, mri [...] 07/18/2024 10:30 AM EDT [facility] [place] [address] [facility] [place] [address] [facility] [address] [place] [address] 08/02/2024 11:12 AM EDT Hospital Encounter OR [facility], Operating Room, [facility] - 4th Floor [address] [place] [phone] Belen Jones, DO [address] [place] [address] 08/02/2024 11:12 AM EDT - 08/02/2024 11:56 AM EDT Surgery OR [facility], Operating Room, [facility] - 4th Floor [address] [place] [phone] Belen Jones, DO [address] [place] [address] ESOPHAGOGASTRODUODENOSCOPY (EGD), FLEXIBLE, TRANSORAL, ENDOSCOPIC ULTRASOUND 08/18/2024 11:00 AM EDT Office Visit [facility] [address] [facility] [place] [phone] Velasquez Valencia MD [address] [place] [address] 07/09/2025 10:00 AM EDT Office Visit Pulmonary Medicine, [facility] [address] [place] [address] Vishal Wallace MD [address] [place] [address] Scheduled Procedures Name Priority Associated Diagnoses Date/Ti [...] 2018 DISCUSS TOBACCO CESSATION (REFER TO SMARTSET #5078) 10/16/2023 10/16/2022 Zoster Vaccines (1 of 2) [...] this encounter Medical Devices Implanted Type Area Area Director Of Home Health Sales Device Identifier Shelf Expiration Date Model / Serial / Lot Suture [place] Dbl Load 4.75mm - [id number] Implanted:Qty: 1 on 12/01/2019 by Judith Condon, at [facility] Right: Shoulder [employer] 07/17/2021 AR-2324BCT -2 / / [id number] Suture [place] Dbl Load 5.5mm - [id number] Implanted:Qty: 1 on 12/01/2019 by Judith Condon, at [facility] Right: Shoulder [employer] 09/16/2021 AR-2323BCT -2 / / [id number] documented as of this encounter Advance Directives [...] Directives occurred with: Not Discussed Care Teams Framing Mill Operator Relationship Specialty Start Date End Date Velasquez Valencia MD [address] [facility] [place] [phone] PCP - General Family Medicine 09/09/22 documented as of this encounter
--- OUTSIDE RECORDS SUMMARY | 2024-07-14 04:36 | External Medical Summary | Summary of Care ---
Author Name Unknown Organization [facility] Address [address] [facility] [address] Phone [phone] Care Team Providers Care Cutter Out Name Role Phone Velasquez Valencia MD Primary Care Provider +1- [phone] Reason for Visit * Reason Onset Date Comments Pre Cert/Prior Auth 07/04/2024 Charisma LIZAMA F melinda FUNES Encounter Details Date Type Department Care Team (Late st Contact Info) Description 07/04/2024 Telephone Orthopaedics [facility] [address] [place] [address] Augie Dejesus PA-C [address] [place] [address] Pre Cert/Prior Auth (Charisma LIZAMA Family FRANKY... Allergies Active Allergy Reactions Criticality Noted Date [...] Respimat 2.5 MCG/ACT Inhalation Aerosol Solution (Tiotropium [place] Monohydrate) Inhale 2 Puffs by mouth in [...] mRNA, LNP-s, No Pre serve, 2-Dose Series (Yellow Chip) 10/21/2021,03/01/2021,02/07/2021 H1N1 2009 Influenza, IM 11/04/2009 Pneumococcal Conjugate Vacci ne, 20-valent ([id number]) 07/09/2023 Pneumococcal Polysaccharide PPV23 (Pneumovax) 11/03/2015,02/09/2006 Seasonal [...] Munson OSA - 07/05/2024 8:57 AM EDT See referral message * Telephone Encounter - Rhea Carr MED ASSIST - 07/04/2024 3:33 PM EDT Orthopaedics Pre-Cert Request Medication/Disease State Information: Medication: Hyaluronate- Euflexxa (J7323): inject 20 mg (2 mL) once weekly for 3 weeks (total of 3 injections). Route to [id number] Is there radiological proof(x-ray, cat scan, mri [...] 07/18/2024 10:30 AM EDT Office Visit Pharmacy, [place] [address] [place] [address] [facility] [address] [place] [address] 08/02/2024 11:12 AM EDT Hospital Encounter OR [facility], Operating Room, [facility] - 4th Floor [address] [place] [address] Belen Jones, DO [address] [place] [address] 08/02/2024 11:12 AM EDT - 08/02/2024 11:56 AM EDT Surgery OR [facility], Operating Room, [facility] - 4th Floor [address] [place] [address] Belen Jones, DO [address] [place] [address] ESOPHAGOGASTRODUODENOSCOPY (EGD), FLEXIBLE, TRANSORAL, ENDOSCOPIC ULTRASOUND 08/18/2024 11:00 AM EDT Office Visit [facility] [address] [place] [phone] Velasquez Valencia MD [address] [place] [address] 07/09/2025 10:00 AM EDT Office Visit Pulmonary Medicine, [facility] [address] [place] [address] Vishal Wallace MD [address] [place] [address] Scheduled Procedures Name Priority Associated Diagnoses Date/Ti [...] (1 of 2) 2023 COVID-19 Vaccine ( - season) 2024 10/21/2021, 03/01/2021, 02/07/2021 Diabetic [...] this encounter Medical Devices Implanted Type Area Net Mobile Developer Device Identifier Shelf Expiration Date Model / Serial / Lot Suture [place] Dbl Load 4.75mm - [id number] Implanted:Qty: 1 on 12/01/2019 by Judith Condon, at [facility] Right: Shoulder [employer] 07/17/2021 AR-2324BCT -2 / / [id number] Suture [place] Dbl Load 5.5mm - [id number] Implanted:Qty: 1 on 12/01/2019 by Judith Condon, at [facility] Right: Shoulder [employer] 09/16/2021 AR-2323BCT -2 / / [id number] documented as of this encounter Advance Directives [...] Directives occurred with: Not Discussed Care Teams Cutter Out Relationship Specialty Start Date End Date Velasquez Valencia MD [address] [place] [address] PCP - General Family Medicine 09/09/22 documented as of this encounter
--- OUTSIDE RECORDS SUMMARY | 2024-07-14 04:36 | External Medical Summary | Summary of Care ---
Author Name Unknown Organization [facility] Address [address] [facility] [address] Phone [phone] Care Team Providers Care Post Doctoral Fellow Name Role Phone Velasquez Valencia MD Primary Care Provider +1- [phone] Reason for Visit * Reason Onset Date Comments Pre Cert/Prior Auth 07/04/2024 Charisma LIZAMA F melinda FUNES Encounter Details Date Type Department Care Team (Late st Contact Info) Description 07/04/2024 Telephone Orthopaedics [facility] [address] [place] [address] Augie Dejesus PA-C [address] [place] [address] Pre Cert/Prior Auth (Charisma LIZAMA Family FRANKY... [...] Respimat 2.5 MCG/ACT Inhalation Aerosol Solution (Tiotropium [place] Monohydrate) Inhale 2 Puffs by mouth in [...] mRNA, LNP-s, No Pre serve, 2-Dose Series ([employer]) 10/21/2021,03/01/2021,02/07/2021 H1N1 2009 Influenza, IM 11/04/2009 Pneumococcal Conjugate Vacci ne, 20-valent ([id number]) 07/09/2023 Pneumococcal Polysaccharide PPV23 (Pneumovax) 11/03/2015,02/09/2006 Seasonal [...] weeks (total of 3 injections). Route to [id number] Is there radiological proof(x-ray, cat scan, mri [...] 07/18/2024 10:30 AM EDT Office Visit Pharmacy, [address] [address] [facility] [address] [place] [address] 08/02/2024 11:12 AM EDT Hospital Encounter OR [facility], Operating Room, [facility] - 4th Floor [address] [facility] [place] [address] Belen Jones, DO [address] [place] [address] 08/02/2024 11:12 AM EDT - 08/02/2024 11:56 AM EDT Surgery [facility], Operating Room, [facility] - 4th Floor [address] [place] [address] Belen Jones DO [address] [place] [address] ESOPHAGOGASTRODUODENOSCOPY (EGD), FLEXIBLE, TRANSORAL, ENDOSCOPIC ULTRASOUND 08/18/2024 11:00 AM EDT Office Visit [facility] [address] [facility] [phone] Velasquez Valencia MD [address] [place] [address] 07/09/2025 10:00 AM EDT Office Visit Pulmonary Medicine, [facility] [address] [place] [address] Vishal Wallace MD [address] [place] [address] Scheduled Procedures Name Priority Associated Diagnoses Date/Ti [...] 2018 DISCUSS TOBACCO CESSATION (REFER TO SMARTSET #9563) 10/16/2023 10/16/2022 Zoster Vaccines (1 of 2) [...] this encounter Medical Devices Implanted Type Area Sledger Device Identifier Shelf Expiration Date Model / Serial / Lot Suture [place] Dbl Load 4.75mm - [id number] Implanted:Qty: 1 on 12/01/2019 by Judith Condon DO at OR [facility] Right: Shoulder [employer] 07/17/2021 AR-2324BCT -2 / / [id number] Suture [place] Dbl Load 5.5mm - [id number] Implanted:Qty: 1 on 12/01/2019 by Judith Condon DO at OR [facility] Right: Shoulder [employer] 09/16/2021 AR-2323BCT -2 / / [id number] documented as of this encounter Advance Directives [...] Directives occurred with: Not Discussed Care Teams Post Doctoral Fellow Relationship Specialty Start Date End Date Velasquez Valencia MD [address] [place] [address] PCP - General Family Medicine 09/09/22 documented as of this encounter
--- OUTSIDE RECORDS SUMMARY | 2024-07-14 04:36 | External Medical Summary | Summary of Care ---
Author Name Unknown Organization [facility] Address [address] [facility] [place] [address] Phone [phone] Care Team Providers Care Casualty Underwriter Name Role Phone Velasquez Valencia MD Primary Care Provider +1- [phone] Reason for Visit * Reason Onset Date Comments Precert Denied 07/04/2024 Gelsyn Encounter Details Date Type Department Care Team (Late st Contact Info) Description 07/04/2024 Telephone Orthopaedics [facility] [address] [place] [address] Augie Dejesus PA-C [address] [facility] [place] [phone] Precert Denied (Gelsyn ) Allergies Active Allergy Reactions Criticality Noted [...] daily as needed 100 Strip 05/09/2024 Active OneCherri Humphrey Lancl[place] 33GIndications:Typ e 2 diabetes mellitus with hemoglobin [...] goal of less than 7.0% ([facility]) Take 2 Tablets by mouth in the [...] Respimat 2.5 MCG/ACT Inhalation Aerosol Solution (Tiotropium [place] Monohydrate) Inhale 2 Puffs by mouth in [...] mRNA, LNP-s, No Pre serve, 2-Dose Series (Encap) 10/21/2021,03/01/2021,02/07/2021 H1N1 2009 Influenza, IM 11/04/2009 Pneumococcal Conjugate Vacci ne, 20-valent ([id number]) 07/09/2023 Pneumococcal Polysaccharide PPV23 (Pneumovax) 11/03/2015,02/09/2006 Seasonal [...] Munson OSA - 07/05/2024 8:57 AM EDT [facility] Authorization Submission Submission Information: Medication: EUFLEXXA Portal used: [facility] Insurance: [facility] Authorization #/Lombardo: [id number] * Telephone Encounter - Rhea Carr MED ASSIST - 07/04/2024 3:33 PM EDT Orthopaedics Pre-Cert Request Medication/Disease State Information: Medication: Hyaluronate- Euflexxa (J7323): inject 20 mg (2 mL) once weekly for 3 weeks (total of 3 injections). Route to [id number] Is there radiological proof(x-ray, cat scan, mri [...] 07/18/2024 10:30 AM EDT Office Visit [facility]acy, [place] [address] [facility] [address] [facility] [address] [facility] [address] 08/02/2024 11:12 AM EDT Hospital Encounter OR [facility], Operating Room, [facility] - 4th Floor [address] [facility] [place] [phone] Belen Jones, DO [address] [place] [address] 08/02/2024 11:12 AM EDT - 08/02/2024 11:56 AM EDT Surgery OR [facility], Operating Room, [facility] - 4th Floor [address] [facility] [place] [phone] Belen Jones, DO [address] [place] [address] ESOPHAGOGASTRODUODENOSCOPY (EGD), FLEXIBLE, TRANSORAL, ENDOSCOPIC ULTRASOUND 08/18/2024 11:00 AM EDT Office Visit [facility] [address] [facility] [address] Velasquez Valencia [facility] [address] [facility] [address] 07/09/2025 10:00 AM EDT Office Visit Pulmonary Medicine, [facility] [address] [place] [address] Vishal Wallace MD [address] [place] [address] Scheduled Procedures Name Priority Associated Diagnoses Date/Ti [...] this encounter Medical Devices Implanted Type Area Cad Specialist Device Identifier Shelf Expiration Date Model / Serial / Lot Suture [place] Dbl Load 4.75mm - [id number] Implanted:Qty: 1 on 12/01/2019 by Judith Condon DO at OR [facility] Right: Shoulder [employer] 07/17/2021 AR-2324BCT -2 / / [id number] Suture [place] Dbl Load 5.5mm - [id number] Implanted:Qty: 1 on 12/01/2019 by Judith Condon DO at [facility] Right: Shoulder [employer] 09/16/2021 AR-2323BCT -2 / / [id number] documented as of this encounter Advance Directives [...] Directives occurred with: Not Discussed Care Teams Casualty Underwriter Relationship Specialty Start Date End Date Velasquez Valencia MD [address] [facility] [place] [address] PCP - General Family Medicine 09/09/22 documented as of this encounter
--- OUTSIDE RECORDS SUMMARY | 2024-07-14 04:36 | External Medical Summary | Summary of Care ---
Author Name Unknown Organization [facility] Address [address] [facility] [place] [address] Phone [phone] Care Team Providers Care Correctional Food Service Supervisor Name Role Phone Velasquez Valencia MD Primary Care Provider +1- [phone] Reason for Visit * Reason Onset Date Comments Med Request 07/04/2024 Encounter Details Date Type Department Care Team (Late st Contact Info) Description 07/04/2024 Telephone Orthopaedics [facility] [address] [place] [address] Augie Dejesus PA-C [address] [place] [address] Med Request Allergies Active Allergy Reactions Criticality Noted Date Comments Cefaclor Unknown 07/26/2018 As child Empagliflozin Other (Please comment) 05/16/2021 DKA with hospitalization Nsaids High 04/19/2019 Gastric problems Other Reaction(s): gastroparesis, kidney problems, use with caution : hx esophagus damage documented as of this encounter (statuses as of 07/04/2024) Medications Medication Sig Dispensed Refills Start Date [...] over 140 [see chart at bottom of [facility] visit 05/09/24], Reported on 05/09/2024 Pioglitazone [...] goal of less than 7.0% ([facility]) Use to check blood sugars once daily [...] goal of less than 7.0% ([facility]) Take 2 Tablets by mouth in the [...] Respimat 2.5 MCG/ACT Inhalation Aerosol Solution (Tiotropium [place] Monohydrate) Inhale 2 Puffs by mouth in the morning. 1 Each 2 07/04/2024 4 Active documented as of this encounter (statuses as of 07/04/2024) Active Problems Problem Noted Date Diagnosed Date [...] as of this encounter (statuses as of 07/04/2024) Resolved Problems Problem Noted Date Diagnosed Date [...] as of this encounter (statuses as of 07/04/2024) Immunizations Name Administration Dates Next Due COVID-19 mRNA, LNP-s, No Pre serve, 2-Dose Series ([employer]) 10/21/2021,03/01/2021,02/07/2021 H1N1 2009 Influenza, IM 11/04/2009 Pneumococcal Conjugate Vacci ne, 20-valent ([id number]) 07/09/2023 Pneumococcal Polysaccharide PPV23 (Pneumovax) 11/03/2015,02/09/2006 Seasonal [...] weeks (total of 3 injections). Route to [id number] Is there radiological proof(x-ray, cat scan, mri [...] 07/18/2024 10:30 AM EDT Office Visit Pharmacy, [address] [address] [facility] [address] [place] [address] 08/02/2024 11:12 AM EDT Hospital Encounter OR [facility], Operating Room, [facility] - 4th Floor [address] [place] [phone] Belen Jones, DO [address] [place] [address] 08/02/2024 11:12 AM EDT - 08/02/2024 11:56 AM EDT Surgery OR [facility], Operating Room, [facility] - 4th Floor [address] [place] [address] Belen Jones DO [address] [place] [address] ESOPHAGOGASTRODUODENOSCOPY (EGD), FLEXIBLE, TRANSORAL, ENDOSCOPIC ULTRASOUND 08/18/2024 11:00 AM EDT Office Visit [facility] [address] [facility] [phone] Velasquez Valencia [facility] [address] [facility] [address] 07/09/2025 10:00 AM EDT Office Visit Pulmonary Medicine, [facility] [address] [place] [address] Vishal Wallace MD [address] [facility] [address] Scheduled Procedures Name Priority Associated Diagnoses Date/Ti [...] 2018 DISCUSS TOBACCO CESSATION (REFER TO SMARTSET #3547) 10/16/2023 10/16/2022 Zoster Vaccines (1 of 2) [...] this encounter Medical Devices Implanted Type Area Mfg Assoc Device Identifier Shelf Expiration Date Model / Serial / Lot Suture [place] Dbl Load 4.75mm - [id number] Implanted:Qty: 1 on 12/01/2019 by Judith Condon, at [facility] Right: Shoulder [employer] 07/17/2021 AR-2324BCT -2 / / [id number] Suture [place] Dbl Load 5.5mm - [id number] Implanted:Qty: 1 on 12/01/2019 by Judith Condon, DO at OR [facility] Right: Shoulder [employer] 09/16/2021 AR-2323BCT -2 / / [id number] documented as of this encounter Advance Directives [...] Directives occurred with: Not Discussed Care Teams Correctional Food Service Supervisor Relationship Specialty Start Date End Date Velasquez Valencia MD [address] [place] [address] PCP - General Family Medicine 09/09/22 documented as of this encounter
--- OUTSIDE RECORDS SUMMARY | 2024-07-14 04:36 | External Medical Summary | Summary of Care ---
Author Name Unknown Organization [facility] Address [address] [facility] [place] [address] Phone [phone] Care Team Providers Care Delivery Specialist Name Role Phone Velasquez Valencia MD Primary Care Provider +1- [phone] Reason for Visit * Reason Onset Date Comments Precert In Process 07/04/2024 Charisma FUNES Encounter Details Date Type Department Care Team (Late st Contact Info) Description 07/04/2024 Telephone Orthopaedics [facility] [address] [place] [address] Augie Dejesus PA-C [address] [place] [address] Precert In Process (Charisma FUNES ) Allergies [...] than 7.0% ([facility]) Use to check blood sugar once daily [...] than 7.0% ([facility]) Take 2 Tablets by mouth in the [...] 2.5 MCG/ACT Inhalation Aerosol Solution (Tiotropium [place] Monohydrate) Inhale 2 Puffs by mouth in [...] mRNA, LNP-s, No Pre serve, 2-Dose Series ([employer]) 10/21/2021,03/01/2021,02/07/2021 H1N1 2009 Influenza, IM 11/04/2009 Pneumococcal Conjugate Vacci ne, 20-valent (Suvkdlv75) 07/09/2023 Pneumococcal Polysaccharide PPV23 (Pneumovax) 11/03/2015,02/09/2006 Seasonal [...] No 04/19/2024 Does the household have a [facility] source of income? (Household - for ages [...] Munson OSA - 07/05/2024 8:57 AM EDT [facility] Authorization Submission Submission Information: Medication: GELSYN Portal used: PromptPA Insurance: [facility] Authorization #/Lombardo: [id number] * Telephone Encounter - Rhea Carr MED ASSIST - 07/04/2024 3:33 PM EDT Orthopaedics Pre-Cert Request Medication/Disease State Information: Medication: Hyaluronate- Euflexxa (J7323): inject 20 mg (2 mL) once weekly for 3 weeks (total of 3 injections). Route to [id number] Is there radiological proof(x-ray, cat scan, mri [...] 07/18/2024 10:30 AM EDT Office Visit Pharmacy, [place] [address] [place] [facility] [place] [address] [facility] [facility] [address] [place] [place] [address] 08/02/2024 11:12 AM EDT Hospital Encounter OR [facility], Operating Room, [facility] - 4th Floor [address] [place] [phone] Belen Jones, DO [address] [place] [address] 08/02/2024 11:12 AM EDT - 08/02/2024 11:56 AM EDT Surgery OR [facility], Operating Room, [facility] - 4th Floor [address] [place] [phone] Belen Jones, DO [address] [place] [address] ESOPHAGOGASTRODUODENOSCOPY (EGD), FLEXIBLE, TRANSORAL, ENDOSCOPIC ULTRASOUND 08/18/2024 11:00 AM EDT Office Visit [facility] [address] [place] [phone] Velasquez Valencia MD [address] [place] [address] 07/09/2025 10:00 AM EDT Office Visit Pulmonary Medicine, [facility] [address] [place] [address] Vishal Wallace MD [address] [facility] [place] [address] Scheduled Procedures Name Priority Associated Diagnoses Date/Ti [...] 2018 DISCUSS TOBACCO CESSATION (REFER TO SMARTSET #1171) 10/16/2023 10/16/2022 Zoster Vaccines (1 of 2) [...] this encounter Medical Devices Implanted Type Area Automotive Customer Experience Advisor Device Identifier Shelf Expiration Date Model / Serial / Lot Suture [place] Dbl Load 4.75mm - [id number] Implanted:Qty: 1 on 12/01/2019 by Judith Condon, at [facility] Right: Shoulder [employer] 07/17/2021 AR-2324BCT -2 / / [id number] Suture [place] Dbl Load 5.5mm - [id number] Implanted:Qty: 1 on 12/01/2019 by Judith Condon, at [facility] Right: Shoulder [employer] 09/16/2021 AR-2323BCT -2 / / [id number] documented as of this encounter Advance Directives [...] Directives occurred with: Not Discussed Care Teams Delivery Specialist Relationship Specialty Start Date End Date Velasquez Valencia MD [address] [facility] [place] [phone] PCP - General Family Medicine 09/09/22 documented as of this encounter
--- OUTSIDE RECORDS SUMMARY | 2024-07-14 04:36 | External Medical Summary | Summary of Care ---
Author Name Unknown Organization [facility] Address [address] [place] [address] Phone [phone] Care Team Providers Care Sexual Health Physician Name Role Phone Velasquez Valencia MD Primary Care Provider +1- [phone] Reason for Referral * Precert (Within 10 days (routine)) - Pending Review Specialty Diagnoses / Procedures Referred By Bismark brown Referred To Contact Radiology Diagnoses Nicotine dependence, cigarettes, uncomplicated Procedures CT CHEST LOW DOSE SCAN LUNG CANCER SCREEN INITIAL Vishal Wallace MD [address] [place] [address] Referral ID Status Reason Start Date Expiration Date V isits Requested Visits Authorized [id number] Pending Review 02/08/[phone] Encounter Details Date Type Department Care Team (Late st Contact Info) Description 07/04/2024 Orders Only Thoracic Surg [facility] [address] [place], [place] [id number] Char Tinajero, RN Nicotine dependence, cigarettes, uncomplicated* Allergies Active Allergy Reactions Criticality Noted Date [...] A1c goal of less than 7.0% ([facility]) Inject 40 units twice daily- this replaces [...] A1c goal of less than 7.0% ([facility]) Inject 32 units with breakfast 22 units [...] over 140 [see chart at bottom of [facility] visit 05/09/24], Reported on [...] A1c goal of less than 7.0% ([facility]) Use to check blood sugar once daily as needed 100 Strip 05/09/2024 Active OneTouch Delemmanuel Lancets 33GIndications:Typ e 2 diabetes mellitus with hemoglobin A1c goal of less than 7.0% ([facility]) Use to check blood [...] A1c goal of less than 7.0% ([facility]) Take 2 Tablets by [...] Respimat 2.5 MCG/ACT Inhalation Aerosol Solution (Tiotropium Brunson Monohydrate) Inhale 2 Puffs by mouth in [...] mRNA, LNP-s, No Pre serve, 2-Dose Series (Mobilygen) 10/21/2021,03/01/2021,02/07/2021 H1N1 2009 Influenza, IM 11/04/2009 Pneumococcal Conjugate Vacci ne, 20-valent ([id number]) 07/09/2023 Pneumococcal Polysaccharide PPV23 (Pneumovax) 11/03/2015,02/09/2006 Seasonal [...] No 04/19/2024 Does the household have a [facility] source of income? (Household - for ages [...] No 04/10/2024 documented as of this encounter Plan of Treatment Upcoming Encounters Date Type Department Care Team (Latest Contact Info) Description 07/18/2024 10:30 AM EDT Office Visit Pharmacy, [place] [address] [facility], [place] [address] [facility] [address] [facility] [address] 08/02/2024 11:12 AM EDT Hospital Encounter OR [facility], Operating Room, [facility] - 4th Floor [address] [facility] [place] [phone] Belen Jones, DO [address] [place] [address] 08/02/2024 11:12 AM EDT - 08/02/2024 11:56 AM EDT Surgery OR [facility], Operating Room, [facility] - 4th Floor [address] [place] [phone] Belen Jones, DO [address] [place] [address] ESOPHAGOGASTRODUODENOSCOPY (EGD), FLEXIBLE, TRANSORAL, ENDOSCOPIC ULTRASOUND 08/18/2024 11:00 AM EDT Office Visit [facility] [address] [facility] [phone] Velasquez Valencia MD [address] [facility] [address] 07/09/2025 10:00 AM EDT Office Visit Pulmonary Medicine, [facility] [address] [place] [address] Vishal Wallace MD [address] [place] [address] Scheduled Orders Name Type Priority Associated Diagnoses Orde r Schedule CT CHEST LOW DOSE SCAN LUNG CANCER SCREEN INITIAL Medical Imaging Routine Nicotine dependence, cigarettes, uncomplicated Expected: 02/08/2025, Expires: 07/04/2026 Scheduled Procedures Name Priority Associated Diagnoses Date/Ti [...] this encounter Medical Devices Implanted Type Area Supervising Film Or Videotape Editor Device Identifier Shelf Expiration Date Model / Serial / Lot Suture Latty Dbl Load 4.75mm - [id number] Implanted:Qty: 1 on 12/01/2019 by Judith Condon DO at OR [facility] Right: Shoulder [employer] 07/17/2021 AR-2324BCT -2 / / [id number] Suture Latty Dbl Load 5.5mm - [id number] Implanted:Qty: 1 on 12/01/2019 by Judith Condon DO at OR [facility] Right: Shoulder [employer] 09/16/2021 AR-2323BCT -2 / / [id number] documented as of this encounter Visit Diagnoses Diagnosis Nicotine dependence, cigarettes, uncomplicated- Primary Acute pancreatitis documented in this encounter Advance [...] Directives occurred with: Not Discussed Care Teams Sexual Health Physician Relationship Specialty Start Date End Date Velasquez Valencia MD [address] [facility] [place] [address] PCP - General Family Medicine 09/09/22 documented as of this encounter
--- OUTSIDE RECORDS SUMMARY | 2024-07-14 04:36 | External Medical Summary | Summary of Care ---
Author Name Unknown Organization [facility] Address [address] [facility] [place] [address] Phone [phone] Care Team Providers Care Director Of Compensation Name Role Phone Velasquez Valencia MD Primary Care Provider +1- [phone] Reason for Visit * Reason Onset Date Comments Precert In Process 07/04/2024 Charisma FUNES Encounter Details Date Type Department Care Team (Late st Contact Info) Description 07/04/2024 Telephone Orthopaedics [facility] [address] [place] [address] Augie Dejesus PA-C [address] [place] [address] Precert In Process (Charisma FUNES ) Allergies [...] hemoglobin A1c goal of less than 7.0% ([facility]) Use to check blood sugar once [...] hemoglobin A1c goal of less than 7.0% ([facility]) Take 2 Tablets by mouth in [...] Respimat 2.5 MCG/ACT Inhalation Aerosol Solution (Tiotropium Mclean Monohydrate) Inhale 2 Puffs by mouth in [...] mRNA, LNP-s, No Pre serve, 2-Dose Series (eXelate) 10/21/2021,03/01/2021,02/07/2021 H1N1 2009 Influenza, IM 11/04/2009 Pneumococcal Conjugate Vacci ne, 20-valent ([id number]) 07/09/2023 Pneumococcal Polysaccharide PPV23 (Pneumovax) 11/03/2015,02/09/2006 Seasonal [...] No 04/19/2024 [facility] the [facility] have [facility] source [facility]? (Household - for [...] Portal used: PromptPA Insurance: GHP Authorization #/Lombardo: [id number] * Telephone Encounter - Rhea Carr MED ASSIST - 07/04/2024 3:33 PM EDT Orthopaedics Pre-Cert Request Medication/Disease State Information: Medication: Hyaluronate- Euflexxa (J7323): inject 20 mg (2 mL) once weekly for 3 weeks (total of 3 injections). Route to t22800 Is there radiological proof(x-ray, cat scan, mri [...] 07/18/2024 10:30 AM EDT [facility], [place] [address] [facility] [place] [address] [facility] [address] [place] [facility] [place] [address] 08/02/2024 11:12 AM EDT Hospital Encounter OR [facility], Operating Room, [facility] - 4th Floor [address] [place] [phone] Belen Jones, DO [address] [place] [address] 08/02/2024 11:12 AM EDT - 08/02/2024 11:56 AM EDT Surgery OR [facility], Operating Room, [facility] - 4th Floor [address] [place] [phone] Belen Jones, DO [address] [place] [address] ESOPHAGOGASTRODUODENOSCOPY (EGD), FLEXIBLE, TRANSORAL, ENDOSCOPIC ULTRASOUND 08/18/2024 11:00 AM EDT Office Visit [facility] [address] [facility] [place] [phone] Velasquez Valencia MD [address] [place] [address] 07/09/2025 10:00 AM EDT Office Visit Pulmonary Medicine, [facility] [address] [place] [address] [facility]ishal Wallace [facility] [address] [facility] [address] Scheduled Procedures Name Priority Associated Diagnoses Date/Ti [...] 2018 DISCUSS TOBACCO CESSATION (REFER TO SMARTSET #8671) 10/16/2023 10/16/2022 Zoster Vaccines (1 of 2) [...] this encounter Medical Devices Implanted Type Area Cell Plasterer Device Identifier Shelf Expiration Date Model / Serial / Lot Suture [place] Dbl Load 4.75mm - [id number] Implanted:Qty: 1 on 12/01/2019 by Judith Condon, at OR [facility] Right: Shoulder [employer] 07/17/2021 AR-2324BCT -2 / / [id number] Suture [place] Dbl Load 5.5mm - [id number] Implanted:Qty: 1 on 12/01/2019 by Judith Condon, at OR [facility] Right: Shoulder [employer] 09/16/2021 AR-2323BCT -2 / / [id number] documented as of this encounter Advance Directives [...] with: Not Discussed Care Teams Director Of Compensation Relationship Specialty Start Date End Date Velasquez Valencia MD [address] [facility] [place] [phone] PCP - General Family Medicine 09/09/22 documented as of this encounter
--- OUTSIDE RECORDS SUMMARY | 2024-07-14 04:37 | External Medical Summary | Summary of Care ---
Author Name Unknown Organization [facility] Address [address] [place] [facility] [place] [address] Phone [phone] Care Team Providers Care Assistant Maintenance Manager Name Role Phone Tati Polo MD Primary Care Provider +1- [phone] Reason for Visit * Reason Comments eRx-Medication Refill Encounter Details Date Type Department Care Team (Late st Contact Info) Description 07/02/2024 Refill [facility] [address] [place] [address] Tati Polo MD [address] [place] [address] Allergies Active Allergy Reactions Criticality Noted Date Comments Cefaclor Unknown 07/26/2018 As child Empagliflozin Other (Please comment) 05/16/2021 DKA with hospitalization Nsaids High 04/19/2019 Gastric problems Other Reaction(s): gastroparesis, kidney problems, use with caution : hx esophagus damage documented as of this encounter (statuses as of 07/03/2024) Medications Medication Sig Dispensed Refills Start Date End Date Status Albuterol Sulfate HFA 108 (90 Base) MCG/ACT Inhalation Aerosol SolutionIndicatio ns:RSV bronchitis inhale 2 puffs by mouth and INTO THE LUNGS every 6 hours if needed for cough shortness of breath or WITHDRAWAL SYMPTOMS 54 g 3 3 Active Losartan Potassium 100 MG Oral Tablet (Cozaar) Take 1 Tablet by mouth in the morning. 90 Tablet 3 3 Active Metamucil 0.52 GM Oral Capsule (Psyllium) Take 1 Capsule by mouth in the morning and 1 Capsule at noon and 1 Capsule before bedtime. 30 Capsule 4 Active Polyethylene Glycol 3350 17 GM Oral Packet (Miralax) Mix 1 Packet in 4 to 8 ounces of any beverage and drink by mouth in the morning. 14 Each 4 Active Ondansetron HCl 4 MG Oral Tablet Take 1 Tablet by mouth every 8 hours as needed for Nausea. 20 Tablet 4 Active Spironolactone 25 MG Oral Tablet (Aldactone) Take 1 Tablet by mouth in the morning. 90 Tablet 3 4 Active Aspirin 81 MG Oral Tablet Delayed Release Take 1 Tablet by mouth in the morning. 90 Tablet 3 4 Active Metoprolol Succinate ER 100 MG Oral Tablet Extended Release 24 Hour (toPROL XL)Indications:HT N, goal below 140/90 Take 1 tab by mouth twice per day 180 Tablet 3 4 Active Toujeo SoloStar 300 UNIT/ML Subcutaneous Solution Pen-injector (Insulin Glargine (1 Unit Dial))Indications :Type 2 diabetes mellitus with hemoglobin A1c goal of less than 7.0% (HCC) Inject 40 units twice daily- this replaces lantus 54 mL 4 4 Active BD Pen Needle Short U/F 31G X 8 MM (Insulin Pen Needle)Indication s:Type 2 diabetes mellitus with hemoglobin A1c goal of less than 7.0% (HCC) Use to inject insulin 5 times daily 500 Each 3 4 Active Insulin Aspart FlexPen 100 UNIT/ML Subcutaneous Solution Pen-injectorIndic ations:Type 2 diabetes mellitus with hemoglobin A1c goal of less than 7.0% (HCC) Inject 32 units with breakfast 22 units with lunch and 22 units with supper plus CF of 1:12 over 150. Max daily dose of 115 units 120 mL 4 4 Active Additional Information Patient taking differently: 34units with breakfast, and 22 units with lunch and 24 units with supper + 10 units with snacks + CF of 1:10 over 140 [see chart at bottom of [facility] visit 05/09/24], Reported on 05/09/2024 Pioglitazone HCl 45 MG Oral Tablet (Actos)Indication s:Type 2 diabetes mellitus with hemoglobin A1c goal of less than 7.0% (HCC) Take 1 Tablet by mouth in the morning. Please fill in about a month- patient is going to be using up his current supply of 15 mg and 30 mg tablets. 90 Tablet 4 4 Active traMADol HCl 50 MG Oral Tablet (Ultram)Indicatio ns:Abdominal pain, epigastric Take 1 Tablet by mouth every 6 hours as needed for Pain, Severe. 40 Tablet 4 Active hydroCHLOROthiazi de 25 MG Oral Tablet (Hydrodiuril) Take 1 Tablet by mouth in the morning. 3 Active Lidocaine 4 % External Patch (Aspercreme) Place 1 Patch over 12 hours topically on the skin in the morning. 30 Patch 4 Active Metoclopramide HCl 10 MG Oral Tablet (Reglan) take 1 tablet by mouth three times a day ( 30 MINUTES before MEALS ) 270 Tablet 1 4 Active traMADol HCl 50 MG Oral Tablet (Ultram)Indicatio ns:Abdominal pain, generalized,Phant om limb pain (HCC) Take 1 Tablet by mouth every 6 hours as needed for Pain, Severe. Take 1-2 tabs by mouth every 6 hours as needed for severe pain in want to do it due 8 it has been 80 Tablet 4 Active Alum & Mag Hydroxide-Simeth 400-400-40 MG/5ML Oral Suspension (Mi-Acid II)Indications:Co nstipation, unspecified constipation type Take 15 ml every 6 hours as needed for constipation 355 mL 3 4 Active Additional Information Patient not taking.Reported on 06/20/2024 Polyethylene Glycol 3350 17 GM/SCOOP Oral Powder (Miralax) Take 1 scoop daily in 8 ounces of water. 510 g 5 4 Active Dicyclomine HCl 10 MG Oral Capsule (Bentyl) TAKE 1 CAPSULE BY MOUTH FOUR TIMES DAILY 360 Capsule 4 Active Atorvastatin Calcium 20 MG Oral Tablet (Lipitor) Take 1 Tablet by mouth in the morning. 90 Tablet 3 4 Active OneTouch Verio In Vitro Strip (Glucose Blood)Indications :Type 2 diabetes mellitus with hemoglobin A1c goal of less than 7.0% (HCC) Use to check blood sugar once daily as needed 100 Strip 4 Active OneTouch Delica Lancets 33GIndications:Ty pe 2 diabetes mellitus with hemoglobin A1c goal of less than 7.0% ([facility]) Use to check blood sugars once daily as needed 100 Each 4 Active Movantik 25 MG Oral Tablet (Naloxegol Oxalate) take 1 tablet by mouth in the morning 30 Tablet 5 4 Active Gabapentin 100 MG Oral Capsule (Neurontin)Indica tions:Neuropathy TAKE 2 CAPSULES BY MOUTH EVERY 12 HOURS 120 Capsule 3 4 Active Cyclobenzaprine HCl 10 MG Oral Tablet (Flexeril)Indicat ions:Lumbar disc herniation TAKE 1 TABLET BY MOUTH AT BEDTIME ONLY NEEDED 30 Tablet 4 Active oxyCODONE HCl 5 MG Oral Tablet (Oxy IR)Indications:[facility] mbar disc herniation Take 1 Tablet by mouth every 8 hours as needed for Pain, Severe. 20 Tablet 4 Active Torsemide 10 MG Oral Tablet (Demadex) Take 1 Tablet by mouth in the morning. 30 Tablet 5 4 Active Pantoprazole Sodium 40 MG Oral Tablet Delayed Release (Protonix) TAKE 1 TABLET BY MOUTH TWICE A DAY 180 Tablet 3 4 Active Famotidine 20 MG Oral Tablet (Pepcid) TAKE ONE TABLET BY MOUTH NIGHTLY AT BEDTIME 90 Tablet 3 4 Active Famotidine 20 MG Oral Tablet (Pepcid) Take 1 Tablet by mouth every night at bedtime. 90 Tablet 3 3 07/03/20 24 Discontinued Pantoprazole Sodium 40 MG Oral Tablet Delayed Release (Protonix) TAKE 1 TABLET BY MOUTH TWICE A DAY 180 Tablet 1 4 07/03/20 24 Discontinued documented as of this encounter (statuses as of 07/03/2024) Active Problems Problem Noted Date Diagnosed Date [...] as of this encounter (statuses as of 07/03/2024) Resolved Problems Problem Noted Date Diagnosed Date [...] as of this encounter (statuses as of 07/03/2024) Immunizations Name Administration Dates Next Due COVID-19 mRNA, LNP-s, No Pre serve, 2-Dose Series (ZuzuChe) 10/21/2021,03/01/2021,02/07/2021 H1N1 2009 Influenza, IM 11/04/2009 Pneumococcal Conjugate Vacci ne, 20-valent ([id number]) 07/09/2023 Pneumococcal Polysaccharide PPV23 (Pneumovax) 11/03/2015,02/09/2006 Seasonal Influenza, PF, 6 M & above, IM , (FluLaval or Fluzone) 07/09/2023,10/16/2022,07/31/2021,09/16,07/12/2019,07/05/2018 Seasonal Influenza, Quadriva lent, No Preserve, IM 05/24/2017,07/24/2016 Seasonal Influenza, Trivalen t, (IIV3), with Preserv, [...] Telephone Encounter - Tati Polo MD - 07/03/2024 10:55 AM EDTSigned Prescriptions: Disp Refills Pantoprazole Sodium 40 MG Oral Tablet Swathi*180 Ta*3 Sig: TAKE 1TABLET BY MOUTH TWICE A DAYAuthorizing Provider: TATI POLO Famotidine 20 MG Oral Tablet (Pepcid) 90 Tab*3 Sig: TAKE ONE TABLET BY MOUTH NIGHTLY AT BEDTIMEAuthorizing Provider: TATI POLO * [facility] - 07/02/2024 8:57 AM EDT Pending Prescriptions: Disp Refills Pantoprazole Sodium 40 MG Oral Tablet Swathi*180 Ta*3 Sig: TAKE 1 TABLET BY MOUTH TWICE A DAY Famotidine 20 MG Oral Tablet (Pepcid) 90 Tab*3 Sig: TAKE ONE TABLET BY MOUTH NIGHTLY AT BEDTIME * Telephone Encounter - [facility] - 07/02/2024 8:56 AM EDT Did you pend patient's preferred pharmacy and medication before forwarding?yes [id number] [address] [facility] Pending Prescriptions: Disp Refills Pantoprazole Sodium 40 MG Oral Tablet Del*180 Ta*0 Sig: TAKE 1 TABLET BY MOUTH TWICE A DAY Famotidine 20 MG Oral Tablet (Pepcid) [Ph*90 Tab*0 Sig: TAKE ONE TABLET BY MOUTH NIGHTLY AT BEDTIME Last Visit: 06/20/2024 (in office), Visit date not found (telemedicine) Next Visit: 08/18/2024 If no future appointments scheduled, and last appointment is greater than a year ago, please schedule patient for a follow-up appointment Last date the medication was ordered: 01/08/24 Is this request for a controlled substance?No Urine Drug Screen:No results found. However, due to the size of the patient record, not all encounters were searched. Please check Results Review for a complete set of results. Patient Phone Numbers Labs: Lab Results Component Value Date/Time CREAT 1.0 05/09/2024 01:59 PM CREAT 0.98 02/07/2024 12:00 AM CREAT 0.8 11/25/2019 08:53 AM POTASSIUM 4.8 05/09/2024 01:59 PM POTASSIUM 5.0 03/15/2024 05:48 PM POTASSIUM 4.5 11/25/2019 08:53 AM TSH 1.24 12/05/2021 12:12 PM TSH 0.698 06/30/2018 12:00 AM LDL 60 04/11/2024 03:45 AM LDL 48 12/13/2023 04:39 AM LDL 108 01/08/2011 02:50 PM ALT 18 05/09/2024 01:59 PM ALT 26 03/28/2024 10:47 AM ALT 37 11/25/2019 08:53 AM HGBA1C 8.6 (H) 05/09/2024 01:59 PM HGBA1C 10.0 (H) 03/07/2024 05:17 AM HGBA1C 9.2 (H) 09/16/2020 01:55 PM documented in this encounter Plan of Treatment Upcoming Encounters Date Type Department Care Team (Latest Contact Info) Description 07/04/2024 11:20 AM EDT Office Visit Pulmonary Medicine, [facility] [address] [facility] [place] [address] Vishal Wallace MD [address] [facility] [place] [address] 07/04/2024 12:30 PM EDT Office Visit Orthopaedics [facility] [address] [place] [address] Augie Dejesus PA-C [address] [place] [address] 07/18/2024 10:30 AM EDT Office Visit [facility] [address] [facility] [address] [facility] [address] [facility] [address] 08/02/2024 11:12 AM EDT Hospital Encounter OR [facility], Operating Room, [facility] - 4th Floor [address] [facility] [place] [phone] Belen Jones, DO [address] [place] [address] 08/02/2024 11:12 AM EDT - 08/02/2024 11:56 AM EDT Surgery OR [facility], Operating Room, [facility] - 4th Floor [address] [facility] [place] [phone] Belen Jones, DO [address] [place] [address] ESOPHAGOGASTRODUODENOSCOPY (EGD), FLEXIBLE, TRANSORAL, ENDOSCOPIC ULTRASOUND 08/18/2024 11:00 AM EDT Office Visit [facility] [address] [facility] [phone] Tati Polo MD [address] [facility] [address] Scheduled Procedures Name Priority Associated Diagnoses Date/Ti [...] 2018 DISCUSS TOBACCO CESSATION (REFER TO SMARTSET #8211) 10/16/2023 10/16/2022 Zoster Vaccines (1 of 2) 2023 COVID-19 Vaccine ( - season) 2024 10/21/2021, 03/01/2021, 02/07/2021 Influenza Vaccine (FLU shot) (#1) 2024 07/09/2023, 10/16/2022, 07/31/2021, Additional history exists Diabetic Foot Exam 07/09/2024 [...] Discontinued 02/22/2024, 02/22/2024, 04/15/2023, Additional history exists HPV (Gardasil) Vaccine Aged Out No lo nger eligible based on patient's age to complete this topic MENINGOCOCCAL (MENACTRA/MENVEO) Aged Out No longer eligible based on patient's age to complete this topic documented as of this encounter Medical Devices Implanted Type Area Chemical Engineering Teacher Device Identifier Shelf Expiration Date Model / Serial / Lot Suture Aubrey Dbl Load 4.75mm - [id number] Implanted:Qty: 1 on 12/01/2019 by Judith Condon, DO at OR [facility] Right: Shoulder [employer] 07/17/2021 AR-2324BCT -2 / / [id number] Suture Aubrey Dbl Load 5.5mm - [id number] Implanted:Qty: 1 on 12/01/2019 by Judith Condon, DO at OR [facility] Right: Shoulder [employer] 09/16/2021 AR-2323BCT -2 / / [id number] documented as of this encounter Advance Directives [...] Directives occurred with: Not Discussed Care Teams Assistant Maintenance Manager Relationship Specialty Start Date End Date Tati Polo MD [address] [facility] [place] [phone] PCP - General Family Medicine 09/09/22 documented as of this encounter
--- OUTSIDE RECORDS SUMMARY | 2024-07-14 04:37 | External Medical Summary | Summary of Care ---
Author Name Unknown Organization [facility] Address [address] [place] [id number] Phone [phone] Care Team Providers Care Sludge Mill Operator Name Role Phone Velasquez Valencia MD Primary Care Provider [phone] Reason for Referral * Evaluate & Treat - Unlimited Visits (Within 10 days (routine)) - Authorized Specialty Diagnoses / Procedures Referred By Bismark brown Referred To Contact Physical Therapy / Physical Medicine And Rehab Diagnoses Primary osteoarthritis of right knee Patellar tendinitis of right knee Augie Dejesus PA-C [address] [place] [address] Referral ID Status Reason Start Date Expiration Date Visits Requested Visits Authorized [id number] Authorized Specialty Services Required 07/04/2024 999 999 [...] pain of right knee Velasquez Valencia MD [address] [place] [id number] Referral ID Status Reason Start Date Expiration Date Visits Requested Visits Authorized [id number] Authorized Specialty Services Required 06/29/[phone] Encounter Details Date Type Department Care Team (Latest Contact Info) Description 07/04/2024 12:30 PM EDT Office Visit Orthopaedics [facility] [address] [place] [address] Augie Dejesus PA-C [address] [place] [address] Primary osteoarthritis of right knee*; Patellar tendinitis [...] over 140 [see chart at bottom of [facility] visit 05/09/24], Reported on [...] A1c goal of less than 7.0% ([facility]) Use to check blood sugar once daily as needed 100 Strip 05/09/2024 Active OneTouch Delica Lancets 33GIndications:Typ e 2 diabetes mellitus with hemoglobin A1c goal of less than 7.0% ([facility]) Use to check blood sugars once [...] mRNA, LNP-s, No Pre serve, 2-Dose Series (BuildingLayer) 10/21/2021,03/01/2021,02/07/2021 H1N1 2009 Influenza, IM 11/04/2009 Pneumococcal Conjugate Vacci ne, 20-valent ([id number]) 07/09/2023 Pneumococcal Polysaccharide PPV23 (Pneumovax) 11/03/2015,02/09/2006 Seasonal [...] his A1c is 8.6. BMI of 42. PMH: Patient Active Problem List Diagnosis Morbid [...] esophagitis DM type 2 causing vascular disease ([facility]) Chronic respiratory failure with hypercapnia (HCC) Lumbar disc herniation Obstructive sleep apnea Restrictive lung disease secondary to obesity COPD, moderate (HCC) Cortical age-related cataract, right eye Constipation History of diabetic ulcer of foot History of pancreatitis Hx of BKA, left (HCC) Current Outpatient Medications Medication Sig Dispense Refill [...] over 140 [see chart at bottom of [facility] visit 05/09/24]) 120 mL 4 Pioglitazone HCl [...] TAKE 1 TABLET BY MOUTH TWICE A [id number] Tablet 3 Famotidine 20 MG Oral Tablet (Pepcid) TAKE ONE TABLET BY MOUTH NIGHTLY AT BEDTIME 90 Tablet 3 Spiriva Respimat 2.5 MCG/ACT Inhalation Aerosol Solution (Tiotropium [place] Monohydrate) Inhale 2 Puffs by mouth in the morning. 1 Each 2 No current facility-administered medications for this visit. 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 Current use of insulin ([facility]) 09/13/2017 DDD (degenerative disc disease), cervical 07/12/2019 Diabetes mellitus type 2, insulin dependent ([facility]) 07/05/2017 Diabetic polyneuropathy associated with type 2 diabetes mellitus ([facility]) 07/24/2016 Displacement of lumbar intervertebral disc without myelopathy DM type 2, goal: symptom mgmt ([facility]) 09/13/2017 DM type 2, not at goal ([facility]) Dyslipidemia, goal LDL below 70 07/24/2016 Gastroesophageal reflux disease without esophagitis 05/07/2020 Gastroparesis 08/27/2015 GERD (gastroesophageal reflux disease) History of DVT (deep vein thrombosis) 04/19/2019 HTN, goal below 140/90 12/23/2015 Per HTN Protocol #27. HTN, goal: symptom mgmt only 09/13/2017 IBS (irritable bowel syndrome) 08/27/2015 Intellectual disability 10/25/2019 Major depressive disorder, recurrent, severe without psychotic features ([facility]) 12/22/2016 Obesity, Class II, BMI 35-39.9, isolated (see actual BMI) 04/19/2019 OTHER osseochondrosis ankle Primary localized osteoarthrosis, lower leg Sleep apnea, obstructive Tobacco use disorder 12/22/2016 Type 2 diabetes mellitus with hemoglobin A1c goal of less than 8.0% ([facility]) 07/05/2017 Past Surgical History: Procedure Laterality Date ARTHO,SHOUL,W/ROTATOR CUFF Right 12/01/2019 ARTHROSCOPY SHOULDER ROTATOR CUFF performed by Judith Condon DO at [facility] COLONOSCOPY, DIAGNOSTIC (RECTUM) 04/18/2015 adenomatous polyp, repeat 5 yrs/[facility] COLONOSCOPY, DIAGNOSTIC (RECTUM) 04/15/2023 poor prep, repeat / [facility] COLONOSCOPY, DIAGNOSTIC (RECTUM) N/A 02/22/2024 normal/recall 5 years/COLONOSCOPY FLEXIBLE PROXIMAL DIAGNOSTIC performed by Marcela Del Valle MD at [facility] EGD, FLEXIBLE, DIAGNOSTIC 10/17/2014 mild-mod inflammation, repeat 1-2 mo/[facility] EGD, FLEXIBLE, DIAGNOSTIC 04/17/2015 normal bx/inpt [facility] EGD, FLEXIBLE, DIAGNOSTIC 05/08/2019 reflux esophagitis, gastritis, duodenitis, repeat 6 wks / [facility] EGD, FLEXIBLE, DIAGNOSTIC 08/18/2019 normal-EGD/[place] EGD, FLEXIBLE, DIAGNOSTIC N/A 05/02/2020 biopsies normal/EGD EGD, FLEXIBLE, DIAGNOSTIC N/A 02/22/2024 antral gastritis/biopsies normal/ESOPHAGOGASTRODUODENOSCOPY (EGD), FLEXIBLE, TRANSORAL, DIAGNOSTIC performed by Marcela Del Valle MD at OR [facility] INJECT DX/THER SUBSTANCE INTERLAMINAR CERVICAL/THORACIC W IMAGE GUIDE 08/17/2019 INJECTION SPINE LUMBAR CERVICAL OR THORACIC performed by Dario Nails DO at OR [facility] KNEE ARTHROSCOPY, DIAGNOSTIC l knee REMOVAL OF TONSILS, UNDER AGE 10 SHOULDER ARTHROSCOPY, BICEPS TENODESIS Right 12/01/2019 ARTHROSCOPY SHOULDER BICEP TENODESIS performed by Judith Condon DO at OR [facility] SHOULDER ARTHROSCOPY/DECOMPRESSION Right 12/01/2019 ARTHROSCOPY SHOULDER SUBACROMIAL DECOMPRESSION performed by Judith Condon DO at OR [facility] Review of patient's allergies indicates: Allergen Reactions [...] nourished, presents wheelchair today due to a [id number] amputation on the left lower extremity, with [...] treatment options discussed and agreed upon, including physical therapy, brace, topical, ice, behavior modification rest. Unable to inject with corticosteroid A1c 8.6. I would consider HAinjection authorization due to his osteoarthritis in the right knee. The patient has no other questions or concerns. They will follow up after completing formal physical therapy, bracing, analgesics,topical agents, ice as well as obtaining authorization for MCCARTY injection series 3 shots of the rightknee. The patient is in agreement.. Pleased with today 's care. Call sooner if needed. This chart was completed in part utilizing [employer] Speech Voice Recognition Software. Grammatical errors, random [...] 07/18/2024 10:30 AM EDT Office Visit Pharmacy, [place] [address] [place] [id number] [place] [address] [facility] [place] [id number] 08/02/2024 11:12 AM EDT Hospital Encounter OR [facility], Operating Room, [facility] - [address]th [facility] [address] [facility] [address] Belen Jones, DO [address] [place] [id number] 08/02/2024 11:12 AM EDT - 08/02/2024 11:56 AM EDT Surgery OR [facility], Operating Room, [facility] - 4th Floor [address] [place] [phone] Belen Jones, DO [address] [place] [id number] ESOPHAGOGASTRODUODENOSCOPY (EGD), FLEXIBLE, TRANSORAL, ENDOSCOPIC ULTRASOUND 08/18/2024 11:00 AM EDT Office Visit [facility] [address] [facility] [phone] Velasquez Valencia MD [address] [place] [address] 07/09/2025 10:00 AM EDT Office Visit Pulmonary Medicine, [facility] [address] [place] [address] Vishal Wallace MD [address] [facility] [address] Pending Results Name Type Priority Associated Diagnoses Date /Time XR KNEE 4 OR MORE VIEWS Medical Imaging Routine 07/04/2024 12:15 PM EDT Scheduled Procedures Name Priority Associated Diagnoses Date/Ti [...] 2018 DISCUSS TOBACCO CESSATION (REFER TO SMARTSET #[id number]) 10/16/2023 10/16/2022 Zoster Vaccines (1 of 2) [...] this encounter Medical Devices Implanted Type Area Tape Deck Installer Device Identifier Shelf Expiration Date Model / Serial / Lot Suture [place] Dbl Load 4.75mm - [id number] Implanted:Qty: 1 on 12/01/2019 by Judith Condon DO at OR [facility] Right: Shoulder [employer] 07/17/2021 [id number] -2 / / [id number] Suture [place] Dbl Load 5.5mm - [id number] Implanted:Qty: 1 on 12/01/2019 by Judith Condon DO at OR [facility] Right: Shoulder [employer] 09/16/2021 [id number] -2 / / [id number] documented as of this encounter Visit Diagnoses Diagnosis Primary osteoarthritis [...] Directives occurred with: Not Discussed Care Teams Sludge Mill Operator Relationship Specialty Start Date End Date Velasquez Valencia MD [address] [place] [address] PCP - General Family Medicine 09/09/22 documented as of this encounter
--- OUTSIDE RECORDS SUMMARY | 2024-07-14 04:37 | External Medical Summary | Summary of Care ---
Author Name Unknown Organization [facility] Address [address] [facility] [place] [address] Phone [phone] Care Team Providers Care Automation Operator Name Role Phone Velasquez Valencia MD Primary Care Provider [phone] Reason for Referral * (Within 10 days (routine)) - Authorized Specialty Diagnoses / Procedures Referred By Bismark brown Referred To Contact Radiology Diagnoses History of tobacco abuse Procedures LUNG CANCER SCREENING PROGRAM REFERRAL Vishal Wallace MD [address] [place] [address] Referral ID Status Reason Start Date Expiration Date V isits Requested Visits Authorized [id number] Authorized 07/04/2024 999 999 Reason for Visit * Reason Onset Date Comments Follow Up Medication Administration 07/04/2024 Flu an d/or Pneumo Inj Encounter Details Date Type Department Care Team (Late st Contact Info) Description 07/04/2024 11:20 AM EDT Office Visit Pulmonary Medicine, [facility] [address] [place] [address] Vishal Wallace MD [address] [place] [phone] Need for prophylactic vaccination and inoculation against influenza*; History of tobacco abuse Allergies Active Allergy Reactions Criticality Noted Date [...] hemoglobin A1c goal of less than 7.0% ([facility]) Inject 40 units twice daily- [...] over 140 [see chart at bottom of [facility] visit 05/09/24], Reported on 05/09/2024 Pioglitazone [...] hemoglobin A1c goal of less than 7.0% ([facility]) Use to check blood sugar once daily as needed 100 Strip 05/09/2024 Active OneTouch Delica Lancets 33GIndications:Typ e 2 diabetes mellitus with hemoglobin A1c goal of less than 7.0% ([facility]) Use to check blood sugars [...] hemoglobin A1c goal of less than 7.0% ([facility]) Take 2 Tablets by mouth [...] Respimat 2.5 MCG/ACT Inhalation Aerosol Solution (Tiotropium Abell Monohydrate) Inhale 2 Puffs by mouth in [...] lower extremity 03/03/2024 05/24/2024 Acute pancreatitis 12/12/2023 4 Thrush 12/12/2023 01/14/2024 Fall 11/01/2023 05/24/2024 Hypertensive [...] IM 11/04/2009 Pneumococcal Conjugate Vacci ne, 20-valent ([id number]) 07/09/2023 Pneumococcal Polysaccharide PPV23 (Pneumovax) 11/03/2015,02/09/2006 Seasonal [...] uit: Not Asked; Counseling Given: Not Answered Alcohol Use Standard Drinks/Week Comments Not Currently [...] Sign Reading Time Taken Comments Blood Pressure 126/82 07/04/2024 11:22 AM EDT Pulse 112 07/04/2024 11:22 AM EDT Temperature 37.2 C (98.9 F) 07/04/2024 11:22 AM E DT Respiratory Rate 07/04/2024 11:22 AM EDT Oxygen Saturation 90% 07/04/2024 11:22 AM EDT ra, rest Inhaled Oxygen Concentration - - Weight 148.3 kg (327 lb) 07/04/2024 11:22 AM EDT Height 188 cm (6' 2") 07/04/2024 11:22 AM EDT Body Mass Index 41.98 07/04/2024 11:22 AM EDT documented in this encounter Functional [...] No 04/10/2024 documented as of this encounter Patient Instructions * Patient Instructions* Vishal Wallace MD - 07/04/2024 11:19 AM EDT ~~PATIENT INSTRUCTIONS FOR FLU SHOT~~ Possible side [...] OF EYES, FACE OR INSIDE OF NOSE. Bry Akhtar Jr. [id number] Benefits of Quitting Smoking Why should I quit smoking? Smoking is bad for you and bad for others around you. Smoking causes cancer, heart attacks, hardening of the arteries, bronchitis, emphysema, cough, shortness of breath, wrinkles, and premature aging. It stains teeth and fingers, irritates the eyes, furs the tongue, and causes bad breath. People are living longer today than their parents did, so it makes sense to work on staying healthy and independent. One of the best ways to do this is to quit smoking. Benefits of quitting smoking It takes time to reverse many years' worth of smoking damage to your body, but some benefits of quitting smoking begin immediately. For example, you're financially better off on day one. Your health starts to improve right away, too, because you remove a former constant source of irritation from your lungs. People may comment that you no longer cough. Your blood circulation is likely to improve, so your hands and feet may feel warmer. Your teeth, breath, and fingers are no longer a turn-off. Benefits that you're less aware of also begin to occur. These include better resistance to colds and respiratory infections, less likelihood of major heart and circulation problems, less risk of high blood pressure or stroke, and less risk of developing cancer. The following arguments are often presented by smokers as justifications for their continuing to smoke: "I have to sometime, so I might as well enjoy life until then." True, but as a smoker you're much more likely to of a heart attack or cancer - neither of whichare very pleasant ways to go. "I'm only hurting myself." True, if you don't count the heartache and grief you may cause your loved ones by your early or permanent disability, or the damage of your smoke to others. "Lots of people who smoke live to ripe old ages in perfect health." True, but this is rare. Nearly all smokers have significant health problems. "Smoking is one of my pleasures. I don't want to quit." Smoking is associated with pleasure because the nicotine in tobacco is an addictive drug. Your bodywill continue to crave a regular supply until you can overcome the habit. Smoking is always a disadvantage to your health and that of your loved ones. "It's my choice and I choose to smoke." True. It is your choice. In a survey of older former smokers, more than 90% quit on their own because they decided to do so. The main reasons they gave for quitting were wanting to stay healthy, following health care provider's advice, regaining control of their lives, and making a loved one happy . [place] Department of Health Quit Line [employer] Free Quitline 1-539 QUIT NOW ( ) Your insurance company may also have more information and helpful programs to help you quit. Some may even help cover some of the costs. For example, [facility] members can call to find out about their smoking cessation program and medication coverage. Developed by Bhavna Jacobsen MD, for [employer]. Published by [employer]. Last modified: 2006-02-26 Last reviewed: 2005-12-16 This content is reviewed periodically and is subject to change as new health information becomes available. The information is intended to inform and educate and is not a replacement for medical evaluation, advice, diagnosis or treatment by a healthcare professional. Adult Health Advisor 2005.4 Index Adult Health Advisor 2005.4 Credits Copyright 2006 [employer] and/or one of its subsidiaries. All Rights Reserved. 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 Compliant with Symbicort and Spiriva inhaler. Refills ordered. Smoking cessation counselling was provided. Patient describes significant challenges committing to quitting smoking. Agreeable to considering ongoing efforts. NonCompliant with CPAP therapy. Interested in Inspire therapy. Patient was advised to continue follow-up with Sleep Medicine team. Physical examination significant for obese body habitus, class 4 throat, scattered coarse wheezing,regular cardiac rhythm, no evidence of volume overload and nonlateralizing Neuro examination. Restrictive Lung Disease sec to large BMI. No scarring/ILD noted on CT Chest Continue with current bronchodilator regimen including Symbicort, Spiriva +32% BD Response on PFT, Sixty-six pack year smoker, active smoker Smoking cessation counselling Calcified Nodules RLL LDCT referral placed. F/u one year Need for prophylactic vaccination and inoculation against influenza (Primary) - INFLUENZA VAC, TRIVALENT, (IIV3), PF, 0.5 ML (FLUZONE) Follow Up: Return in about 1 year (around 07/04/2025) for Clinic Visit. 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 Compliant with Symbicort and Spiriva inhaler. Refills ordered. Smoking cessation counselling was prov Follow Up: Return in about 1 year (around 07/04/2025) for Clinic Visit. | For: Clinic Visit | Check-out note: ided. Patient describes significant challenges committing to quitting smoking. Agreeable to considering ongoing efforts. NonCompliant with CPAP therapy. Interested in Inspire therapy. Patient was advised to continue follow-up with Sleep Medicine team. Physical examination significant for obese body habitus, class 4 throat, scattered coarse wheezing,regular cardiac rhythm, no evidence of volume overload and nonlateralizing Neuro examination. Restrictive Lung Disease sec to large BMI Follow Up: Return in about 1 year (around 07/04/2025) for Clinic Visit. | For: Clinic Visit | Check-out note: . No scarring/ILD noted on CT Chest Continue with current bronchodilator regimen including Symbicort, Spiriva +32% BD Response on PFT, Sixty-six pack year smoker, active smoker Smoking cessation counselling Calcified Nodules RLL LDCT referral placed. F/u one year Data review: PFT November 2022 showed severe restrictive ventilatory pattern with 30% bronchodilator response. Significant air trapping noted. Restrictive ventilatory pattern likely related to body habitus/BMI artifact. No evidence of parenchymal scarring is noted on CT scan. Significant air trapping and bronchodilator response are suggestive of underlying reactive airway disease. CT chest from November 2022 shows basilar bronchiectatic changes, right lower lobe subpleural scar/nodule (). Chest x-ray from August 2022 at [facility] did not show any evidence of parenchymal scarring, effusions or infiltrates. Vishal Wallace MD Subjective CC: Chief Complaint Patient presents with Follow Up Medication Administration Flu and/or Pneumo Inj HPI: Nursing Notes: Maggie Valdes SUPERVISOR IN [employer]ING 07/04/24 1130 Addendum Pt is here for f/u restrictive lung disease. MMRC Dyspnea Scale = 3 (I stop for breath after walking about 100 yards or after a few minutes on ground level) Interm History/Respiratory Symptoms Cough: rare, clear phlegm Hemoptysis: no Sinus Symptoms: no Hospitalizations: [facility] in February-March for left below knee amputation ED Trips: no Triggers: exertion Nocturnal: no problems, sleeps with head elevated CPAP/BiPAP/O2: failed CPAP DME Supplier: n/a Flu Vaccine: today Pneumovax: 2016 Prevnar: 2022 COVID 19: x 3 Objective Filed Vitals: 07/04/24 1122 BP: 126/82 Pulse: 112 Resp: 22 Temp: 37.2 C (98.9 F) TempSrc: Tympanic SpO2: 90% Weight: (!) 148.3 kg (327 lb) Height: 1.88 m (6' 2") Exam: Const: No signs of acute distress present. Head/Face: Normal on inspection. Eyes: Conjunctivae clear. Pupils equal round and reactive to light. ENMT: Oropharynx: No erythema, exudate or masses. Posterior pharynx is normal. Neck: Supple and symmetric. Resp: Respiratory examination as outlined above CV: Rate is regular. Rhythm is regular. No heart murmur appreciated. Extremities: No edema of the lower limbs bilaterally. Skin: Skin is warm and dry. Neuro: Coordination normal. No involuntary movement. Psych: Patient's attitude is cooperative. Mood is normal. Affect is normal. Tests reviewed with the patient: CT ABD/PELVIS WO IV/ORAL CONTRAST Result Date: 04/10/2024 IMPRESSION: 1. Grossly unremarkable appearance of the kidneys for noncontrast scan. No hydronephrosis 2. Constipation 3. Nonobstructive bowel gas pattern THIS DOCUMENT HAS BEEN ELECTRONICALLY SIGNED BY PIPPA FARRELL MD XR CHEST 1 VIEW Result Date: 04/10/2024 IMPRESSION: Low lung volumes with atelectatic changes.No focal consolidation. Viral process not excluded. THIS DOCUMENT HAS BEEN ELECTRONICALLY SIGNED BY PIPPA FARRELL MD CT PELVIS WO CONTRAST Result Date: 03/30/2024 No evidence of acute fracture or dislocation. Subtle chronic asymmetry of the sacroiliac joints is unchanged compared to 03/28/2024 and 02/07/2024. Signed by: Scott Patel on 03/30/2024 11:[address] HEAD/BRAIN WO CONTRAST Result Date: 03/30/2024 Small posterior scalp contusion. No intracranial hemorrhage or calvarial fracture. Signed by: Scott Patel on 03/30/2024 10:04 AM XR PELVIS 1 VIEW Result Date: 03/30/2024 Widened right SI joint suggests probable bony injury. Signed by: Prasanth Matta on 03/30/2024 9:59 AM XR L SPINE COMPLETE Result Date: 03/30/2024 No acute fracture. Signed by: Prasanth Matta on 03/30/2024 9:59 AM XR T SPINE AP AND LAT Result Date: 03/30/2024 No acute fracture. Signed by: Prasanth Matta on 03/30/2024 9:58 AM XR C SPINE 2-3 VIEWS Result Date: 03/30/2024 No acute fracture. Signed by: Prasanth Matta on 03/30/2024 9:[address] ABD/PELVIS WO IV CONTRAST - W ORAL CONTRAST Result Date: 03/28/2024 No acute inflammatory process is seen. No evidence of bowel obstruction. Bibasilar atelectasis is seen with very small pleural effusions. Signed by: Prasanth Matta on 03/28/2024 11:54 AM US SCROTUM TESTES Result Date: 03/21/2024 No evidence of testicular mass or torsion. Probable scrotal cellulitis. Signed by: Prasanth Matta on 03/21/2024 12:31 PM XR CHEST 1 VIEW Result Date: 03/21/2024 Bilateral interstitial opacities are seen in the lungs. Signed by: Colt Braxton on 03/21/2024 8:54 AM US RETROPERITONEAL LIMITED Result Date: 03/13/2024 No evidence of hydronephrosis in either kidney. Signed by: Mónica Koo on 03/13/2024 3:11 PM NM WBC WHOLE BODY CERETEC Result Date: 03/08/2024 1. Diffuse persistent soft tissue uptake is noted about the left ankle. 2. Focal uptake is present within the scattered areas of debris. Localized infection at any of these sites cannot be excluded. 3. The most worrisome activity that corresponds to a discrete underlying bony structure is at the level of the middle cuneiform. Given the extensive underlying bony changes due to Charcot arthropathy,osteomyelitis would be very difficult to exclude. Signed by: Bhavna Gray on 03/08/2024 3:42 PM MRI ANKLE LEFT W WO CONTRAST Result Date: 03/06/2024 IMPRESSION Findings consistent with septic arthritis and extensive osteomyelitis of the left ankle and hindfoot, with background postoperative changes of prior tibiotalocalcaneal fusion and subsequent hardware removal. XR CHEST 1 VIEW Result Date: 03/03/2024 IMPRESSION: No acute findings. THIS DOCUMENT HAS BEEN ELECTRONICALLY SIGNED BY MAMTA GROSS MD XR FOOT 3 OR MORE VIEWS Result Date: 03/03/2024 IMPRESSION: Destructive changes in the ankle joint with multiple erosions and debris surrounding the joint and joint space narrowing. Consistent with the history of Charcot arthropathy. THIS DOCUMENTHAS BEEN ELECTRONICALLY SIGNED BY MAMTA GROSS MD CT CHEST WO CONTRAST Result Date: 02/11/2024 IMPRESSION Calcified granulomatous disease. No suspicious nodules are seen. US LOWER EXTREMITY VENOUS DUPLEX SCAN LEFT Result Date: 02/10/2024 No evidence for DVT within the left lower extremity. Electronically Signed by Eugenio Byrd MD 02/10/2024 1:[address] ABD/PELVIS WO IV CONTRAST - W ORAL CONTRAST Result Date: 02/07/2024 No acute abnormality of the abdomen or pelvis. Prior appendectomy. Electronically Signed by Eugenio Byrd MD 02/07/2024 3:18 PM XR ANKLE 2 VIEWS Result Date: 02/04/2024 As above. Signed by: Uvaldo Julio on 02/04/2024 2:41 PM NM WBC WHOLE BODY CERETEC Result Date: 01/06/2024 Inhomogeneous Ceretec accumulation overlying the bony structures in the left ankle and left of footas described above. Scintigraphically, there is no definite evidence of osteomyelitis in the left foot. Follow-up radiographs of the left foot are suggested. Signed by: Akila Torres on 01/06/2024 5:49 PM Available Radiologic data was reviewed by me in PACS. The images were shown to the patient and findings were discussed with the patient. HOME MEDICATIONS: Spiriva Respimat 2.5 MCG/ACT Inhalation Aerosol Solution (Tiotropium Abell Monohydrate) Famotidine 20 MG Oral Tablet (Pepcid) metFORMIN HCl 500 MG Oral Tablet (Glucophage) Pantoprazole Sodium 40 MG Oral Tablet Delayed Release (Protonix) oxyCODONE HCl 5 MG Oral Tablet (Oxy IR) Torsemide 10 MG Oral Tablet (Demadex) Cyclobenzaprine HCl 10 MG Oral Tablet (Flexeril) Gabapentin 100 MG Oral Capsule (Neurontin) Movantik 25 MG Oral Tablet (Naloxegol Oxalate) OneTouch Delica Lancets 33G OneTouch Verio In Vitro Strip (Glucose Blood) Atorvastatin Calcium 20 MG Oral Tablet (Lipitor) Dicyclomine HCl 10 MG Oral Capsule (Bentyl) Polyethylene Glycol 3350 17 GM/SCOOP Oral Powder (Miralax) traMADol HCl 50 MG Oral Tablet (Ultram) Lidocaine 4 % External Patch (Aspercreme) Metoclopramide HCl 10 MG Oral Tablet (Reglan) hydroCHLOROthiazide 25 MG Oral Tablet (Hydrodiuril) traMADol HCl 50 MG Oral Tablet (Ultram) Insulin Aspart FlexPen 100 UNIT/ML Subcutaneous Solution Pen-injector Pioglitazone HCl 45 MG Oral Tablet (Actos) BD Pen Needle Short U/F 31G X 8 MM (Insulin Pen Needle) Stephenumeghna SoloStar 300 UNIT/ML Subcutaneous Solution Pen-injector (Insulin Glargine (1 Unit Dial)) Metoprolol Succinate ER 100 MG Oral Tablet Extended Release 24 Hour (toPROL XL) Aspirin 81 MG Oral Tablet Delayed Release Spironolactone 25 MG Oral Tablet (Aldactone) Metamucil 0.52 GM Oral Capsule (Psyllium) Ondansetron HCl 4 MG Oral Tablet Polyethylene Glycol 3350 17 GM Oral Packet (Miralax) Losartan Potassium 100 MG Oral Tablet (Cozaar) Albuterol Sulfate HFA 108 (90 Base) MCG/ACT Inhalation Aerosol Solution Alum & Mag Hydroxide-Simeth 400-400-40 MG/5ML Oral Suspension (Mi-Acid II) ROS: No reported history of Hemoptysis, Hematemesis, Melena No reported history of Dysuria, Hematuria, Flank Pain No reported history of chronic headache, seizures No reported history of Fall or trauma . No reported history of recent change in weight or appetite. 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 Current use of insulin ([facility]) 09/13/2017 DDD (degenerative disc disease), cervical 07/12/2019 Diabetes mellitus type 2, insulin dependent ([facility]) 07/05/2017 Diabetic polyneuropathy associated with type 2 diabetes mellitus ([facility]) 07/24/2016 Displacement of lumbar intervertebral disc without myelopathy DM type 2, goal: symptom mgmt ([facility]) 09/13/2017 DM type 2, not at goal ([facility]) Dyslipidemia, goal LDL below 70 07/24/2016 Gastroesophageal reflux disease without esophagitis 05/07/2020 Gastroparesis 08/27/2015 GERD (gastroesophageal reflux disease) History of DVT (deep vein thrombosis) 04/19/2019 HTN, goal below 140/90 12/23/2015 Per HTN Protocol #27. HTN, goal: symptom mgmt only 09/13/2017 IBS (irritable bowel syndrome) 08/27/2015 Intellectual disability 10/25/2019 Major depressive disorder, recurrent, severe without psychotic features ([facility]) 12/22/2016 Obesity, Class II, BMI 35-39.9, isolated (see actual BMI) 04/19/2019 OTHER osseochondrosis ankle Primary localized osteoarthrosis, lower leg Sleep apnea, obstructive Tobacco use disorder 12/22/2016 Type 2 diabetes mellitus with hemoglobin A1c goal of less than 8.0% ([facility]) 07/05/2017 Past Surgical History: Procedure Laterality Date ARTHO,SHOUL,W/ROTATOR CUFF Right 12/01/2019 ARTHROSCOPY SHOULDER ROTATOR CUFF performed by Judith Condon DO at OR [facility] COLONOSCOPY, DIAGNOSTIC (RECTUM) 04/18/2015 adenomatous polyp, repeat 5 yrs/[facility] COLONOSCOPY, DIAGNOSTIC (RECTUM) 04/15/2023 poor prep, repeat / [facility] COLONOSCOPY, DIAGNOSTIC (RECTUM) N/A 02/22/2024 normal/recall 5 years/COLONOSCOPY FLEXIBLE PROXIMAL DIAGNOSTIC performed by Marcela Del Valle MD at OR [facility] EGD, FLEXIBLE, DIAGNOSTIC 10/17/2014 mild-mod inflammation, repeat 1-2 mo/[facility] EGD, FLEXIBLE, DIAGNOSTIC 04/17/2015 normal bx/inpt [facility] EGD, FLEXIBLE, DIAGNOSTIC 05/08/2019 reflux esophagitis, gastritis, duodenitis, repeat 6 wks / [facility] EGD, FLEXIBLE, DIAGNOSTIC 08/18/2019 normal-EGD/[place] EGD, FLEXIBLE, DIAGNOSTIC N/A 05/02/2020 biopsies normal/[facility] EGD, FLEXIBLE, DIAGNOSTIC N/A 02/22/2024 antral gastritis/biopsies normal/ESOPHAGOGASTRODUODENOSCOPY (EGD), FLEXIBLE, TRANSORAL, DIAGNOSTIC performed by Marcela Del Valle MD at OR [facility] INJECT DX/THER SUBSTANCE INTERLAMINAR CERVICAL/THORACIC W IMAGE GUIDE 08/17/2019 INJECTION SPINE LUMBAR CERVICAL OR THORACIC performed by Dario Nails DO at OR [facility] KNEE ARTHROSCOPY, DIAGNOSTIC l knee REMOVAL OF TONSILS, UNDER AGE 10 SHOULDER ARTHROSCOPY, BICEPS TENODESIS Right 12/01/2019 ARTHROSCOPY SHOULDER BICEP TENODESIS performed by Judith Condon DO at OR [facility] SHOULDER ARTHROSCOPY/DECOMPRESSION Right 12/01/2019 ARTHROSCOPY SHOULDER SUBACROMIAL DECOMPRESSION performed by Judith Condon DO at OR [facility] Social History Socioeconomic History Marital status: Spouse name: Esperanza Years of education: 14 Occupational History Occupation: Student Employer: [employer] [...] Care Yes Exercise Yes Comment: some walking Seat Belt No Social History Narrative 1 dog in his home. No mold. 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 (Adult - for ages 18 years and over): No Food Insecurity: No Food Insecurity (04/19/2024) Food Insecurity Do you need food for this week? (Adult - for ages 18 years and over): No Transportation Needs: No Transportation Needs (04/19/2024) Transportation Needs Do you have trouble getting a ride to medical visits or work? (Adult - for ages 18 years and over):Never True Has lack of transportation kept you from medical appointments, meetings, work, or from getting things needed for daily living? Check all that apply. (Adult - for ages 18 years and over): No Social Connections: Socially Integrated (04/19/2024) Social Connections [...] 18 years and over): No Are you homeless or worried that you might be in the future? (Adult - for ages 18 years and over): No Family History Problem Relation Name Age of Onset Diabetes Mother Endocrine Disorder Mother Dyslipidemia Hypertension Mother Hypertension Father COPD Father age 55 Arthritis Sister No Known Problems Brother Diabetes Aunt (Unspecified) Diabetes Uncle (Unspecified) Diabetes Grandmother (Maternal) Diabetes Grandmother (Paternal) Review of patient's allergies indicates: Allergen Reactions Nsaids Gastric problems Other Reaction(s): gastroparesis, kidney problems, use with caution : hx esophagus damage Ceclor [Cefaclor] Unknown As child Jardiance [Empagliflozin] Other (Please comment) DKA with hospitalization The following information was reviewed/discussed with the patient: Benefits & harms of screening Potential indications for follow-up testing, if/when necessary Risk of over-diagnosis, false positive findings, and radiation exposure Importance of cigarette smoking abstinence, if applicable Annual adherence to lung cancer screening Impact of comorbidities and ability or willingness to undergo diagnostic testing and/or treatment if something concerning is identified during screening. * Maggie Valdes LPN - 07/04/2024 11:19 AM EDT PRE - ADMINISTRATION DOCUMENTATION Are you experiencing any cold symptoms or fever? No Have you had Guillain-[place] Syndrome (an illness that causes paralysis) within the last 6 weeks? No Have you had the flu shot in the past? YES Have you ever had a reaction to the flu shot? No Maggie Valdes LPN, 07/04/2024 11:19 AM Immunization Administration Documentation Time Out Procedure Performed: Yes Patient Identified (Ask Name/Date of ): Yes Does the patient have a fever greater than 101 degrees today? No Patient allergic to latex? No VFC Stock: No Immunization(s) verified: Yes, Immunization Name: Flu, VIS Sheet(s) given: Yes Verified Side and Site: Yes Verified Shot(s) with Parent(s)/Patient: Yes documented in this encounter Nursing Notes * Maggie Valdes LPN - 07/04/2024 11:14 AM EDT Pt is here for f/u restrictive lung disease. MMRC Dyspnea Scale = 3 (I stop for breath after walking about 100 yards or after a few minutes on ground level) Interm History/Respiratory Symptoms Cough: rare, clear phlegm Hemoptysis: no Sinus Symptoms: no Hospitalizations: [facility] in February-March for left below knee amputation ED Trips: no Triggers: exertion Nocturnal: no problems, sleeps with head elevated CPAP/BiPAP/O2: failed CPAP DME Supplier: n/a Flu Vaccine: today Pneumovax: 2016 Prevnar: 2023 COVID 19: x 3 documented in this encounter Plan of Treatment Upcoming Encounters Date Type Department Care Team (Latest Contact Info) Description 07/04/2024 12:30 PM EDT Office Visit Orthopaedics [facility] [address] [address] Augie Dejesus PA-C [address] [place] [address] Knee pain* 07/18/2024 10:30 AM EDT Office Visit Pharmacy, [place] [address] [facility] [address] [facility] [address] [facility] [facility] [address] 08/02/2024 11:12 AM EDT Hospital Encounter OR [facility], Operating Room, [facility] - 4th Floor [address] [facility] [phone] Belen Jones, DO [address] [place] [address] 08/02/2024 11:12 AM EDT - 08/02/2024 11:56 AM EDT Surgery OR [facility], Operating Room, [facility] - 4th Floor [address] [facility] [phone] Belen Jones, DO [address] [place] [address] ESOPHAGOGASTRODUODENOSCOPY (EGD), FLEXIBLE, TRANSORAL, ENDOSCOPIC ULTRASOUND 08/18/2024 11:00 AM EDT Office Visit [facility] [address] [facility] [phone] Velasquez Valencia MD [address] [facility] [address] 07/09/2025 10:00 AM EDT Office Visit Pulmonary Medicine, [facility] [address] [place] [address] Vishal Wallace MD [address] [facility] [place] [address] Scheduled Orders Name Type Priority Associated Diagnoses Orde r Schedule LUNG CANCER SCREENING PROGRAM REFERRAL Medical Imaging Routine History of tobacco abuse Expected: 07/04/2024, Expires: 07/04/2026 Scheduled Procedures Name Priority Associated [...] 2018 DISCUSS TOBACCO CESSATION (REFER TO SMARTSET #8371) 10/16/2023 10/16/2022 Zoster Vaccines (1 of 2) [...] this encounter Medical Devices Implanted Type Area Tandem Operator Device Identifier Shelf Expiration Date Model / Serial / Lot Suture [place] Dbl Load 4.75mm - [id number] Implanted:Qty: 1 on 12/01/2019 by Judith Condon DO at OR [facility] Right: Shoulder [employer] 07/17/2021 AR-2324BCT -2 / / [id number] Suture [place] Dbl Load 5.5mm - [id number] Implanted:Qty: 1 on 12/01/2019 by Judith Condon DO at OR [facility] Right: Shoulder [employer] 09/16/2021 AR-2323BCT -2 / / [id number] documented as of this encounter Visit Diagnoses Diagnosis Need for prophylactic vaccination and inoculation against influenza- Primary History of tobacco abuse Personal history of tobacco use, presenting hazards to health Knee pain- Primary Pain in joint, lower leg Acute pancreatitis documented in this encounter Advance [...] Directives occurred with: Not Discussed Care Teams Automation Operator Relationship Specialty Start Date End Date Velasquez Valencia MD [address] [facility] [place] [address] PCP - General Family Medicine 09/09/22 documented as of this encounter
--- OUTSIDE RECORDS SUMMARY | 2024-07-14 04:37 | External Medical Summary | Summary of Care ---
Author Name Unknown Organization [facility] Address [address] [place] [address] Phone [phone] Care Team Providers Care Program Mgr Name Role Phone Velasquez Valencia MD Primary Care Provider +1- [phone] Encounter Details Date Type Department Care Team (Late st Contact Info) Description 07/04/2024 Orders Only [facility] [address] [place] [address] Char Tinajero, NEPTALI Nicotine dependence, cigarettes, uncomplicated* Allergies Active Allergy [...] 140 [see chart at bottom of [facility] visit 05/09/24], Reported on 05/09/2024 Pioglitazone HCl [...] goal of less than 7.0% ([facility]) Use to check blood sugar once daily [...] goal of less than 7.0% ([facility]) Take 2 Tablets by mouth in the [...] Respimat 2.5 MCG/ACT Inhalation Aerosol Solution (Tiotropium [place] Monohydrate) Inhale 2 Puffs by mouth in [...] mRNA, LNP-s, No Pre serve, 2-Dose Series (ThemBid) 10/21/2021,03/01/2021,02/07/2021 H1N1 2009 Influenza, IM 11/04/2009 Pneumococcal Conjugate Vacci ne, 20-valent (Owaesra18) 07/09/2023 Pneumococcal Polysaccharide PPV23 (Pneumovax) 11/03/2015,02/09/2006 Seasonal [...] 07/18/2024 10:30 AM EDT Office Visit Pharmacy, [place] [address] [place] [address] [facility] [address] [place] [address] 08/02/2024 11:12 AM EDT Hospital Encounter OR [facility], Operating Room, [facility] - 4th Floor [address] [place] [address] [place] [phone] Belen Jones, DO [address] [place] [address] 08/02/2024 11:12 AM EDT - 08/02/2024 11:56 AM EDT Surgery OR [facility], Operating Room, [facility] - 4th Floor [address] [place] [address] Belen Jones, DO [address] [place] [address] ESOPHAGOGASTRODUODENOSCOPY (EGD), FLEXIBLE, TRANSORAL, ENDOSCOPIC ULTRASOUND 08/18/2024 11:00 AM EDT Office Visit [facility] [address] [facility] [phone] Velasquez Valencia MD [address] [facility] [place] [address] 07/09/2025 10:00 AM EDT Office Visit Pulmonary Medicine, [facility] [address] [place] [place] [address] Vishal Wallace MD [address] [place] [address] Scheduled Procedures Name Priority Associated Diagnoses Date/Ti [...] this encounter Medical Devices Implanted Type Area Gig Tender Device Identifier Shelf Expiration Date Model / Serial / Lot Suture [place] Dbl Load 4.75mm - [id number] Implanted:Qty: 1 on 12/01/2019 by Judith Condon, at OR [facility] Right: Shoulder [employer] 07/17/2021 AR-2324BCT -2 / / [id number] Suture [place] Dbl Load 5.5mm - [id number] Implanted:Qty: 1 on 12/01/2019 by Judith Condon, at OR [facility] Right: Shoulder [employer] 09/16/2021 AR-2323BCT -2 / / [id number] documented as of this encounter Visit Diagnoses [...] Directives occurred with: Not Discussed Care Teams Program Mgr Relationship Specialty Start Date End Date Velasquez Valencia MD [address] [place] [address] PCP - General Family Medicine 09/09/22 documented as of this encounter
--- OUTSIDE RECORDS SUMMARY | 2024-07-14 04:38 | External Medical Summary | Summary of Care ---
Author Name Unknown Organization [facility] Address [address] [place] [place] [address] Phone [phone] Care Team Providers Care Contact And Service Clerks Supervisor Name Role Phone Velasquez Polo MD Primary Care Provider +1- [phone] Reason for Visit * Reason Comments Medication Refill Encounter Details Date Type Department Care Team (Late st Contact Info) Description 07/02/[address] [phone] Velasquez Polo MD [address] [place] [address] Type 2 diabetes mellitus with hemoglobin A1c goal of less than 7.0% ([facility]) Allergies Active Allergy Reactions Criticality [...] WITHDRAWAL SYMPTOMS 54 g 3 10/29/2022 Active Famotidine 20 MG Oral Tablet (Pepcid) Take 1 Tablet by mouth every night at bedtime. 90 Tablet 3 04/24/2023 Active Losartan Potassium 100 MG Oral Tablet [...] per day 180 Tablet 3 12/29/2023 Active Pantoprazole Sodium 40 MG Oral Tablet Delayed Release (Protonix) TAKE 1 TABLET BY MOUTH TWICE A DAY 180 Tablet 1 01/08/2024 Active Toujeo SoloStar 300 UNIT/ML Subcutaneous Solution Pen-injector (Insulin Glargine (1 Unit Dial))Indications :Type 2 diabetes mellitus with hemoglobin A1c goal of less than 7.0% ([facility]) Inject 40 units twice daily- this replaces lantus 54 mL 4 01/19/2024 Active BD Pen Needle Short U/F 31G X 8 MM (Insulin Pen Needle)Indication s:Type 2 diabetes mellitus with hemoglobin A1c goal of less than 7.0% ([facility]) Use to inject insulin 5 times daily 500 Each 3 01/19/2024 Active Insulin Aspart FlexPen 100 UNIT/ML Subcutaneous Solution Pen-injectorIndic ations:Type 2 diabetes mellitus with hemoglobin A1c goal of less than 7.0% ([facility]) Inject 32 units with breakfast [...] for Pain, Severe. 40 Tablet 02/22/2024 Active hydroCHLOROthiazi de 25 MG Oral Tablet [...] MINUTES before MEALS ) 270 Tablet 1 04/13/2024 Active traMADol HCl [...] 100 Strip 05/09/2024 Active OneTouch Delica Lancets 33GIndications:Ty pe 2 diabetes mellitus with hemoglobin A1c goal of less than 7.0% (HCC) Use to check blood sugars once daily as needed 100 Each 05/09/2024 Active Movantik 25 MG Oral Tablet (Naloxegol Oxalate) take 1 tablet by mouth in the morning 30 Tablet 5 05/24/2024 Active Gabapentin 100 MG Oral Capsule (Neurontin)Indica [...] the evening. 360 Tablet 3 07/03/2024 Active metFORMIN HCl 500 MG Oral Tablet (Glucophage)Indic ations:Type 2 diabetes mellitus with hemoglobin A1c goal of less than 7.0% (HCC) Take 2 Tablets by mouth in the morning and 2 Tablets in the evening. 360 Tablet 3 06/18/2023 4 Discontinu ed(Refill) documented as of this encounter (statuses as [...] mRNA, LNP-s, No Pre serve, 2-Dose Series (TroopSwap) 10/21/2021,03/01/2021,02/07/2021 H1N1 2009 Influenza, IM 11/04/2009 Pneumococcal Conjugate Vacci ne, 20-valent ([id number]) 07/09/2023 Pneumococcal Polysaccharide PPV23 (Pneumovax) 11/03/2015,02/09/2006 Seasonal [...] Miscellaneous Notes * Telephone Encounter - Gisel Ruiz, [facility] - 07/03/2024 7:19 AM EDT Signed Prescriptions: Disp Refills metFORMIN HCl 500 MG Oral Tablet (Glucopha*360 Ta*3 Sig: Take 2 Tablets by mouth in the morning and 2 Tablets in the evening.Authorizing Provider: James POLO User: GISEL RUIZ ------- documented in this encounter Plan of Treatment Upcoming Encounters Date Type Department Care Team (Latest Contact Info) Description 07/04/2024 11:20 AM EDT Office Visit Pulmonary Medicine, [facility] [address] [place] [address] Vishal Wallace MD [address] [facility] [place] [address] 07/04/2024 12:30 PM EDT Office Visit Orthopaedics [facility] [address] [place] [address] Augie Dejesus PA-C [address] [place] [address] 07/18/2024 10:30 AM EDT Office Visit Pharmacy, [address] [place] [address] [facility] [address] [facility] [place] [address] 08/02/2024 11:12 AM EDT Hospital Encounter OR [facility], Operating Room, [facility] - 4th Floor [address] [facility] [place] [phone] Belen Jones DO [address] [place] [place] [address] 08/02/2024 11:12 AM EDT - 08/02/2024 11:56 AM EDT Surgery OR [facility], Operating Room, [facility] - 4th Floor [address] [place] [phone] Belen Jones, [address] [place] [address] ESOPHAGOGASTRODUODENOSCOPY (EGD), FLEXIBLE, TRANSORAL, ENDOSCOPIC ULTRASOUND 08/18/2024 11:00 AM EDT Office Visit [facility] [address] [facility] [address] Velasquez Polo MD [address] [facility] [place] [phone] Scheduled Procedures Name Priority Associated Diagnoses Date/Ti [...] Vaccine ( season) 2024 10/21/2021, 03/01/2021, 02/07/2021 Influenza Vaccine [...] this encounter Medical Devices Implanted Type Area Enrollment Services Vice President Device Identifier Shelf Expiration Date Model / Serial / Lot Suture [place] Dbl Load 4.75mm - [id number] Implanted:Qty: 1 on 12/01/2019 by Judith Condon, DO at OR [facility] Right: Shoulder [employer] 07/17/2021 AR-2324BCT -2 / / [id number] Suture [place] Dbl Load 5.5mm - [id number] Implanted:Qty: 1 on 12/01/2019 by Judith Condon, at OR [facility] Right: Shoulder [employer] 09/16/2021 AR-2323BCT -2 / / [id number] documented as of this encounter Visit Diagnoses Diagnosis Type 2 diabetes mellitus with hemoglobin A1c goal of less than 7.0% (HCC) Acute pancreatitis documented in this encounter Advance [...] patient have Health Care Power of Attor inles? No * Full Code Date Activated Date [...] Directives occurred with: Not Discussed Care Teams Contact And Service Clerks Supervisor Relationship Specialty Start Date End Date Velasquez Polo MD [address] [place] [facility] [place] [address] PCP - General Family Medicine 09/09/22 documented as of this encounter
--- OUTSIDE RECORDS SUMMARY | 2024-07-14 04:38 | External Medical Summary | Summary of Care ---
Author Name Unknown Organization [facility] Address [address] [place] [facility] [place] [place] [address] Phone [phone] Care Team Providers Care Motion Picture Actor Name Role Phone Velasquez Valencia MD Primary Care Provider +1- [phone] Reason for Referral * Evaluate & Treat - Unlimited Visits (Within 30 days (routine)) - Authorized Specialty Diagnoses / Procedures Referred By Bismark brown Referred To Contact Orthopaedic Surgery / Orthopedics Diagnoses Chronic pain of right knee Velasquez Valencia MD [address] [place] [address] Referral ID Status Reason Start Date Expiration Date Visits Requested Visits Authorized [id number] Authorized Specialty Services Required 06/29/[phone] Question Answer Referral Priority Within 30 days (routine) Where should this appointment be scheduled? [facility] What body part is the patient being seen for? Thigh/Knee What condition is the patient being seen for? Arthritis including related infection Reason for Visit * Reason Onset Date Comments Test Results 06/27/2024 Encounter Details Date Type Department Care Team ([facility] st Contact Info) Description 06/27/2024 Telephone [facility] [address] [place] [address] Velasquez Valencia MD [address] [place] [address] Test Results Allergies Active Allergy Reactions Criticality Noted Date Comments Cefaclor Unknown 07/26/2018 As child Empagliflozin Other (Please comment) 05/16/2021 DKA with hospitalization Nsaids High 04/19/2019 Gastric problems Other Reaction(s): gastroparesis, kidney problems, use with caution : hx esophagus damage documented as of this encounter (statuses as of 06/30/2024) Medications Medication Sig Dispensed Refills Start Date [...] at bedtime. 90 Tablet 3 04/24/2023 Active metFORMIN HCl 500 MG Oral Tablet (Glucophage)Indica tions:Type 2 diabetes mellitus with hemoglobin A1c goal of less than 7.0% ([facility]) Take 2 Tablets by mouth in the morning and 2 Tablets in the evening. 360 Tablet 3 06/18/2023 Active Losartan Potassium 100 MG Oral Tablet [...] A DAY 180 Tablet 1 01/08/2024 Active Toumeghna SoloStar 300 UNIT/ML Subcutaneous Solution Pen-injector (Insulin [...] over 140 [see chart at bottom of [facility] visit 05/09/24], Reported on 05/09/2024 Pioglitazone HCl [...] hemoglobin A1c goal of less than 7.0% ([facility]) Use to check blood sugar once daily as needed 100 Strip 05/09/2024 Active OneTouch Delica Lancets 33GIndications:Typ e 2 diabetes mellitus with hemoglobin A1c goal of less than 7.0% ([facility]) Use to check blood sugars once daily [...] the morning. 30 Tablet 5 06/20/2024 Active documented as of this encounter (statuses as of 06/30/2024) Active Problems Problem Noted Date Diagnosed Date [...] as of this encounter (statuses as of 06/30/2024) Resolved Problems Problem Noted Date Diagnosed Date [...] as of this encounter (statuses as of 06/30/2024) Immunizations Name Administration Dates Next Due COVID-19 mRNA, LNP-s, No Pre serve, 2-Dose Series (Pfizer) 10/21/2021,03/01/2021,02/07/2021 H1N1 2009 Influenza, IM 11/04/2009 Pneumococcal Conjugate Vacci ne, 20-valent ([id number]) 07/09/2023 Pneumococcal Polysaccharide PPV23 (Pneumovax) 11/03/2015,02/09/2006 Seasonal [...] No 04/19/2024 Does the household have a [facility] [place] of income? (Household - for ages [...] encounter Miscellaneous Notes * Telephone Encounter - Aaron Fung OSA - 06/30/2024 12:57 PM EDT Patient scheduled * Telephone Encounter - Velasquez Valencia MD - 06/29/2024 10:46 AM EDT Please assist with ortho appt for right knee pain * Telephone Encounter - Cindy Saul OSA - 06/28/2024 9:16 AM EDT Informed patient of the xray results. Yes, he would like a referral for ortho for an eval. * Telephone Encounter - Velasquez Valencia MD - 06/27/2024 6:14 PM EDT Please notify that the x-ray shows mild evidence for arthritis. No fracture or dislocation. No lesions in the bone. Likely, the increased knee pain is related to increased stressors on the knee given below the knee amputation on the other side. Can offer referral to ortho if he would their eval. * Telephone Encounter - Tanesha Goldsmith LPN - 06/27/2024 2:53 PM EDT X-ray result in [facility] * Telephone Encounter - Ana Sams OSA - 06/27/2024 9:08 AM EDT Who is Requesting Test Results: Patient Primary Care Provider : Velasquez Valencia MD Tests Results Requested : imaging Date of Test : 06/22/24 Location of Test: [facility] Ordering Provider: Dr Valencia Patient has been made aware that the turnaround time for test results are typically as follows: Laboratory results = within 2-3 days ([facility]), 3-5 days (Non[facility], ie[facility]) Urine Cultures = within 2-3 days depending on growth within the culture Pathology results (biopsy results/PAP) = 1-2 weeks Radiology results = about 1 week Cologuard results = within 2 weeks from the shipment date COVID testing = about 24 hours documented in this encounter Plan of Treatment Upcoming Encounters Date Type Department Care Team (Latest Contact Info) Description 07/04/2024 11:20 AM EDT Office Visit Pulmonary Medicine, [facility] [address] [facility] [place] [address] Vishal Wallace MD [address] [place] [address] 07/04/2024 12:30 PM EDT Office Visit Orthopaedics [facility] [address] [facility] [place] [address] Augie Dejesus PA-C [address] [facility] [place] [address] 07/18/2024 10:30 AM EDT [address] [address] [place], [facility] [address] [facility] [address] 08/02/2024 11:12 AM EDT Hospital Encounter OR [facility], Operating Room, [facility] - 4th Floor [address] [place] [address] [place] [phone] Belen Jones, DO [address] [place] [address] 08/02/2024 11:12 AM EDT - 08/02/2024 11:56 AM EDT Surgery OR [facility], Operating Room, [facility] - 4th Floor [address] [place] [address] Belen Jones, DO [address] [place] [address] ESOPHAGOGASTRODUODENOSCOPY (EGD), FLEXIBLE, TRANSORAL, ENDOSCOPIC ULTRASOUND 08/18/2024 11:00 AM EDT Office Visit [facility] [address] [place] [facility] [place] [address] Velasquez Valencia MD [address] [place] [facility] [place] [address] Scheduled Procedures Name Priority Associated Diagnoses Date/Ti me ESOPHAGOGASTRODUODENOSCOPY ( EGD), FLEXIBLE, TRANSORAL, ENDOSCOPIC ULTRASOUND Acute pancreatitis 08/02/2024 11:12 AM EDT COLONOSCOPY FLEXIBLE PROXIMA L DIAGNOSTIC Recall Screening for colon cancer Scheduled Referrals Name Type Priority Associated Diagnoses Order Schedule ORTHOPAEDICS REFERRAL OP Referral Within 30 days (routine) Chronic pain of right knee Ordered: 06/29/2024 Health Maintenance Due Date Last Done Comments HIV Screening 1988 Alpha-1 Antitrypsin 1991 Hepatitis C Screening 1991 Hepatitis B Vaccine (1 of 3 - 19+ 3-dose series) 1992 Cologuard 2018 Fecal Occult Blood Test 2018 Sigmoidoscopy 2018 DISCUSS TOBACCO CESSATION (REFER TO SMARTSET #7847) 10/16/2023 10/16/2022 Zoster Vaccines (1 of 2) [...] this encounter Medical Devices Implanted Type Area Studio Sales Associate Device Identifier Shelf Expiration Date Model / Serial / Lot Suture [place] Dbl Load 4.75mm - [id number] Implanted:Qty: 1 on 12/01/2019 by Judith Condon DO at OR [facility] Right: Shoulder [employer] 07/17/2021 AR-2324BCT -2 / / [id number] Suture [place] Dbl Load 5.5mm - [id number] Implanted:Qty: 1 on 12/01/2019 by Judith Condon DO at OR [facility] Right: Shoulder [employer] 09/16/2021 AR-2323BCT -2 / / [id number] documented as of this encounter Visit Diagnoses Diagnosis Chronic pain of right knee- Primary Acute pancreatitis documented in this encounter [...] Directives occurred with: Not Discussed Care Teams Motion Picture Actor Relationship Specialty Start Date End Date Velasquez Valencia MD [address] [place] [address] PCP - General Family Medicine 09/09/22 documented as of this encounter
--- OUTSIDE RECORDS SUMMARY | 2024-07-14 04:38 | External Medical Summary | Summary of Care ---
Author Name Unknown Organization [facility] Address [address] [facility] [facility] [address] Phone [phone] Care Team Providers Care Deal Architect Name Role Phone Velasquez Valencia MD Primary Care Provider +1- [phone] Reason for Visit * Reason Onset Date Comments Advice 06/15/2024 Encounter Details Date Type Department Care Team (Late st Contact Info) Description 06/15/2024 Telephone Located Within [facility] [address] [place] [address] Velasquez Valencia MD [address] [place] [address] Advice Allergies Active Allergy Reactions Criticality Noted Date Comments Cefaclor Unknown 07/26/2018 As child Empagliflozin Other (Please comment) 05/16/2021 DKA with hospitalization Nsaids High 04/19/2019 Gastric problems Other Reaction(s): gastroparesis, kidney problems, use with caution : hx esophagus damage documented as of this encounter (statuses as of 06/16/2024) Medications Medication Sig Dispensed Refills Start Date [...] in the morning. 14 Each 11/06/2023 Active Torsemide 10 MG Oral Tablet (Demadex) Take 1 Tablet by mouth in the morning. 30 Tablet 11/06/2023 Active Ondansetron HCl 4 MG Oral [...] hemoglobin A1c goal of less than 7.0% ([facility]) Inject 40 units twice daily- this replaces [...] over 140 [see chart at bottom of [place] visit 05/09/24], Reported on 05/09/2024 Pioglitazone HCl [...] for constipation 355 mL 3 04/21/2024 Active Polyethylene Glycol 3350 17 GM/SCOOP Oral Powder [...] hemoglobin A1c goal of less than 7.0% ([facility]) Use to check blood sugar once daily as needed 100 Strip 05/09/2024 Active OneTouch Delica Lancets 33GIndications:Typ e 2 diabetes mellitus with hemoglobin A1c goal of less than 7.0% ([facility]) Use to check blood sugars once [...] BEDTIME ONLY NEEDED 30 Tablet 06/14/2024 Active documented as of this encounter (statuses as of 06/16/2024) Active Problems Problem Noted Date Diagnosed Date [...] as of this encounter (statuses as of 06/16/2024) Resolved Problems Problem Noted Date Diagnosed Date [...] Overview: Per HTN Taxonomy. Diabetic polyneuropathy 04/12/2007 10/0 04/2016 Overview: ICD-10 update of inactive term [...] as of this encounter (statuses as of 06/16/2024) Immunizations Name Administration Dates Next Due COVID-19 mRNA, LNP-s, No Pre serve, 2-Dose Series ([employer]) 10/21/2021,03/01/2021,02/07/2021 H1N1 2009 Influenza, IM 11/04/2009 Pneumococcal Conjugate Vacci ne, 20-valent ([id number]) 07/09/2023 Pneumococcal Polysaccharide PPV23 (Pneumovax) 11/03/2015,02/09/2006 Seasonal [...] Telephone Encounter - Velasquez Valencia MD - 06/16/2024 4:23 PM EDT We should just discuss at the office visit 06/20/24 * Telephone Encounter - Devora Bennett LPN - 06/16/2024 10:33 AM EDT Patient calling back Advised of the message. He stated that GI nutrition has a waiting list and is scheduled out months,he stated that his girlfriend is on the waiting list. He would like try something as his weight has increased He stated that the [facility] clinic weighed him as 360lbs using a wheelchair scale and estimated his WC as 35lb but Beba thinks that the WC weighs more than that. He has an upcoming appt on 06/20/2024 and wanted to try to get on the scales to get an accurate weight. * Telephone Encounter - Sparkle Garcia LPN - 06/16/2024 9:02 AM EDT Attempted to call patient, there was no answer, left voicemail. When patient returns call, ok for DAMION to relay message, please refer to below documentation. If needed, can transfer to dedicated nurse line. * Telephone Encounter - Velasquez Valencia MD - 06/15/2024 5:20 PM EDT The [facility] clinic is likely referring to using the GLP-1 class of medication. Pt was on mounjaro inthe past. It was stopped related to his admissions for pancreatitis and it was decided that we would avoid this class of medication. He can be offered a referral to GI nutrition for discussion of options. * Telephone Encounter - Sparkle Garcia LPN - 06/15/2024 1:20 PM EDT Please advise, do you want patient to come in for a visit to discuss weight loss options? * Telephone Encounter - Jaye Mcneil OSA - 06/15/2024 8:00 AM EDT Pt called in asking if PCP can prescribe something for weight loss . He was advised by the [facility] clinic to talk with PCP as his weight was up to an estimated 358 pounds . It is putting strain on hisleg since having leg amputated . He would like to know if something can be prescribed or does he need to be seen . He would like call back from nurse documented in this encounter Plan of Treatment Upcoming Encounters Date Type Department Care Team (Latest Contact Info) Description 06/20/2024 1:00 PM EDT Office Visit Located Within [facility] [address], [place] [address] Velasquez Valencia MD [address] [address] 07/18/2024 10:30 AM EDT [facility] [address] [facility] [address] [place] [facility] [address] [facility] [address] 08/02/2024 11:06 AM EDT Hospital Encounter OR [facility], Operating Room, [facility] Floor [address] [facility] [place] [address] Belen Jones, DO [address] [place] [address] 08/02/2024 11:06 AM EDT - 08/02/2024 11:50 AM EDT Surgery OR [facility], Operating Room, [facility] [address] [facility] [place] [address] Belen Jones, DO [address] [place] [address] ESOPHAGOGASTRODUODENOSCOPY (EGD), FLEXIBLE, TRANSORAL, ENDOSCOPIC ULTRASOUND 08/18/2024 11:00 AM EDT Office Visit [place] [address] [address] Velasquez Valencia MD [address] [facility] [address] Scheduled Procedures Name Priority Associated Diagnoses Date/Ti me ESOPHAGOGASTRODUODENOSCOPY ( EGD), FLEXIBLE, TRANSORAL, ENDOSCOPIC ULTRASOUND Acute pancreatitis 08/02/2024 11:06 AM EDT COLONOSCOPY FLEXIBLE PROXIMA L DIAGNOSTIC Recall Screening for colon cancer Health Maintenance Due Date Last Done Comments HIV Screening 1988 Alpha-1 Antitrypsin 1991 Hepatitis C Screening 1991 Hepatitis B Vaccine (1 of 3 - 19+ 3-dose series) 1992 Cologuard 2018 Fecal Occult Blood Test 2018 Sigmoidoscopy 2018 COVID-19 Vaccine ( season) 2023 10/21/2021, 03/01/2021, 02/07/2021 DISCUSS TOBACCO CESSATION (REFER TO SMARTSET #3291) 10/16/2023 10/16/2022 Zoster Vaccines (1 of 2) 2023 Influenza Vaccine (FLU shot) (#1) 2024 07/09/2023, [...] this encounter Medical Devices Implanted Type Area Retail Team Leader Device Identifier Shelf Expiration Date Model / Serial / Lot Suture [place] Dbl Load 4.75mm - [id number] Implanted:Qty: 1 on 12/01/2019 by Judith Condon, DO at OR [facility] Right: Shoulder [employer] 07/17/2021 AR-2324BCT -2 / / [id number] Suture [place] Dbl Load 5.5mm - [id number] Implanted:Qty: 1 on 12/01/2019 by Judith Condon, at OR [facility] Right: Shoulder [employer] 09/16/2021 AR-2323BCT -2 / / [id number] documented as of this encounter Advance Directives [...] Directives occurred with: Not Discussed Care Teams Deal Architect Relationship Specialty Start Date End Date Velasquez Valencia MD [address] [place] [address] PCP - General Family Medicine 09/09/22 documented as of this encounter
--- OUTSIDE RECORDS SUMMARY | 2024-07-14 04:38 | External Medical Summary | Summary of Care ---
Author Name Unknown Organization [facility] Address [address] [facility] [address] Phone [phone] Care Team Providers Care Rn New Grad Name Role Phone Velasquez Valencia MD Primary Care Provider +1- [phone] Reason for Visit * Reason Onset Date Comments Med Request 06/14/2024 Encounter Details Date Type Department Care Team (Late st Contact Info) Description 06/14/2024 Telephone [facility] [address] [place] [address] Velasquez Valencia MD [address] [place] [address] Med Request Allergies Active Allergy Reactions Criticality Noted Date Comments Cefaclor Unknown 07/26/2018 As child Empagliflozin Other (Please comment) 05/16/2021 DKA with hospitalization Nsaids High 04/19/2019 Gastric problems Other Reaction(s): gastroparesis, kidney problems, use with caution : hx esophagus damage documented as of this encounter (statuses as of 06/14/2024) Medications Medication Sig Dispensed Refills Start Date [...] of less than 7.0% ([facility]) Inject 40 units twice daily- this replaces [...] of less than 7.0% ([facility]) Inject 32 units with breakfast 22 units [...] over 140 [see chart at bottom of [facility] visit 05/09/24], Reported on 05/09/2024 Pioglitazone HCl 45 MG Oral Tablet (Actos)Indications :Type 2 diabetes mellitus with hemoglobin A1c goal of less than 7.0% ([facility]) Take 1 Tablet by mouth in the [...] of less than 7.0% ([facility]) Use to check blood sugar once daily as needed 100 Strip 05/09/2024 Active OneTouch Delica Lancets 33GIndications:Typ e 2 diabetes mellitus with hemoglobin A1c goal of less than 7.0% ([facility]) Use to check blood sugars once daily [...] as of this encounter (statuses as of 06/14/2024) Active Problems Problem Noted Date Diagnosed Date [...] as of this encounter (statuses as of 06/14/2024) Resolved Problems Problem Noted Date Diagnosed Date [...] as of this encounter (statuses as of 06/14/2024) Immunizations Name Administration Dates Next Due COVID-19 mRNA, LNP-s, No Pre serve, 2-Dose Series ([employer]) 10/21/2021,03/01/2021,02/07/2021 H1N1 2009 Influenza, IM 11/04/2009 Pneumococcal Conjugate Vacci ne, 20-valent ([id number]) 07/09/2023 Pneumococcal Polysaccharide PPV23 (Pneumovax) 11/03/2015,02/09/2006 Seasonal [...] Telephone Encounter - Velasquez Valencia MD - 06/14/2024 4:54 PM EDT Needs ov. * Telephone Encounter - Mel Walker LPN - 06/14/2024 9:06 AM EDT Please advise, thank you! * Telephone Encounter - Tracy Connolly PHARM Tech - 06/14/2024 8:40 AM EDT Pt currently on Tramadol but finds that it is not strong enough. Patient requesting refills for oxyCODONE HCl 10 MG Oral Tablet (Roxicodone) . Upon chart review, medication is listed as discontinued, with discontinuation reason as "none". Please advise if you wishto continue this therapy for the patient. Thank you, Tracy Connolly [facility] [employer] Engineer Fire Coordinator [facility] ([facility]) 06/14/2024,8:42 AM documented in this encounter Plan of Treatment Upcoming Encounters Date Type Department Care Team (Latest Contact Info) Description 07/18/2024 10:30 AM EDT [facility] [address] [place] [facility] [place] [address] [facility] [address] [place] [address] 08/02/2024 11:06 AM EDT Hospital Encounter OR [facility], Operating Room, [facility] [address] [facility] [place] [address] Belen Jones, DO [address] [place] [address] 08/02/2024 11:06 AM EDT - 08/02/2024 11:50 AM EDT Surgery OR [facility], Operating Room, [facility] Floor [address] [facility] [place] [address] Belen Jones, DO [address] [place] [address] ESOPHAGOGASTRODUODENOSCOPY (EGD), FLEXIBLE, TRANSORAL, ENDOSCOPIC ULTRASOUND 08/18/2024 11:00 AM EDT Office Visit [facility] [address] [address] [facility] [address] Velasquez Valencia MD [address] [facility] [address] Scheduled Procedures Name Priority Associated Diagnoses Date/Ti [...] 02/07/2021 DISCUSS TOBACCO CESSATION (REFER TO SMARTSET #6301) 10/16/2023 10/16/2022 Zoster Vaccines (1 of 2) [...] this encounter Medical Devices Implanted Type Area Graduate Assistant Athletic Trainer Device Identifier Shelf Expiration Date Model / Serial / Lot Suture [place] Dbl Load 4.75mm - [id number] Implanted:Qty: 1 on 12/01/2019 by Judith Condon, DO at OR [facility] Right: Shoulder [employer] 07/17/2021 AR-2324BCT -2 / / [id number] Suture [place] Dbl Load 5.5mm - [id number] Implanted:Qty: 1 on 12/01/2019 by Judith oCndon, at OR [facility] Right: Shoulder [employer] 09/16/2021 AR-2323BCT -2 / / [id number] documented as of this encounter Advance Directives [...] Directives occurred with: Not Discussed Care Teams Rn New Grad Relationship Specialty Start Date End Date Velasquez Valencia MD [address] [place] [address] PCP - General Family Medicine 09/09/22 documented as of this encounter
--- OUTSIDE RECORDS SUMMARY | 2024-07-14 04:38 | External Medical Summary | Summary of Care ---
Author Name Unknown Organization [facility] Address [address] [facility] [address] Phone [phone] Care Team Providers Care Gasket Supervisor Name Role Phone Velasquez Valencia MD Primary Care Provider +1- [phone] Reason for Visit * Reason Onset Date Comments Med Request 06/14/2024 Encounter Details Date Type Department Care Team (Late st Contact Info) Description 06/14/2024 Telephone [facility] [address] [place] [address] Velasquez Valencia MD [address] [place] [address] Med Request Allergies Active Allergy Reactions Criticality Noted Date Comments Cefaclor Unknown 07/26/2018 As child Empagliflozin Other (Please comment) 05/16/2021 DKA with hospitalization Nsaids High 04/19/2019 Gastric problems Other Reaction(s): gastroparesis, kidney problems, use with caution : hx esophagus damage documented as of this encounter (statuses as of 06/15/2024) Medications Medication Sig Dispensed Refills Start Date [...] less than 7.0% ([facility]) Inject 40 units twice daily- [...] less than 7.0% ([facility]) Inject 32 units with breakfast [...] over 140 [see chart at bottom of [facility] visit 05/09/24], Reported on 05/09/2024 Pioglitazone HCl 45 MG Oral Tablet (Actos)Indications :Type 2 diabetes mellitus with hemoglobin A1c goal of less than 7.0% ([facility]) Take 1 Tablet by mouth in the [...] ([facility]) Use to check blood sugar [...] as of this encounter (statuses as of 06/15/2024) Active Problems Problem Noted Date Diagnosed Date [...] as of this encounter (statuses as of 06/15/2024) Resolved Problems Problem Noted Date Diagnosed Date [...] as of this encounter (statuses as of 06/15/2024) Immunizations Name Administration Dates Next Due COVID-19 mRNA, LNP-s, No Pre serve, 2-Dose Series ([employer]) 10/21/2021,03/01/2021,02/07/2021 H1N1 2009 Influenza, IM 11/04/2009 Pneumococcal Conjugate Vacci ne, 20-valent ([id number]) 07/09/2023 Pneumococcal Polysaccharide PPV23 (Pneumovax) 11/03/2015,02/09/2006 Seasonal [...] for the patient. Thank you, Tracy Connolly CPhT General Assembler Stock Counter [facility] ([facility]) 06/14/2024,8:42 AM documented in this encounter Plan of Treatment Upcoming Encounters Date Type Department Care Team (Latest Contact Info) Description 07/18/2024 10:30 AM EDT [address] [address] [place] [address] [facility] [address] 08/02/2024 11:06 AM EDT Hospital Encounter OR [facility], Operating Room, [facility] - 4th Floor [address] [facility] [place] [address] Belen Jones, DO [address] [place] [address] 08/02/2024 11:06 AM EDT - 08/02/2024 11:50 AM EDT Surgery OR [facility], Operating Room, [facility] Floor [address] [facility] [place] [address] Belen Jones, DO [address] [place] [address] ESOPHAGOGASTRODUODENOSCOPY (EGD), FLEXIBLE, TRANSORAL, ENDOSCOPIC ULTRASOUND 08/18/2024 11:00 AM EDT Office Visit [facility] [address] [facility] [address] Velasquez Valencia MD [address] [facility] [address] Scheduled Procedures Name Priority Associated Diagnoses Date/Ti [...] 02/07/2021 DISCUSS TOBACCO CESSATION (REFER TO SMARTSET #0275) 10/16/2023 10/16/2022 Zoster Vaccines (1 of 2) [...] this encounter Medical Devices Implanted Type Area Service Delivery Consultant Device Identifier Shelf Expiration Date Model / Serial / Lot Suture [place] Dbl Load 4.75mm - [id number] Implanted:Qty: 1 on 12/01/2019 by Judith Condon DO at OR [facility] Right: Shoulder [employer] 07/17/2021 AR-2324BCT -2 / / [id number] Suture [place] Dbl Load 5.5mm - [id number] Implanted:Qty: 1 on 12/01/2019 by Judith Condon DO at OR [facility] Right: Shoulder [employer] 09/16/2021 AR-2323BCT -2 / / [id number] documented as of this encounter Advance Directives [...] Directives occurred with: Not Discussed Care Teams Gasket Supervisor Relationship Specialty Start Date End Date Velasquez Valencia MD [address] [place] [address] PCP - General Family Medicine 09/09/22 documented as of this encounter
--- OUTSIDE RECORDS SUMMARY | 2024-07-14 04:38 | External Medical Summary | Summary of Care ---
Author Name Unknown Organization [facility] Address [address] [facility] [address] Phone [phone] Care Team Providers Care Facilities Engineer Name Role Phone Velasquez Valencia MD Primary Care Provider +1- [phone] Reason for Visit * Reason Onset Date Comments Advice 06/15/2024 Encounter Details Date Type Department Care Team (Late st Contact Info) Description 06/15/2024 Telephone [facility] [address] [place] [address] Velasquez Valencia MD [address] [place] [address] Advice Allergies Active Allergy Reactions [...] mRNA, LNP-s, No Pre serve, 2-Dose Series ([employer]) 10/21/2021,03/01/2021,02/07/2021 H1N1 2009 Influenza, IM 11/04/2009 Pneumococcal Conjugate Vacci ne, 20-valent ([id number]) 07/09/2023 Pneumococcal Polysaccharide PPV23 (Pneumovax) 11/03/2015,02/09/2006 Seasonal [...] encounter Miscellaneous Notes * Telephone Encounter - Barbara Mireles LPN - 06/15/2024 2:00 PM EDT Patient calling in today to get orders for Motorized power scooter (the pride pursuit 2)and lift chair. Uses medical supplier [employer] Assistance office told him if he gets orders from PCP they will help pay for scooter and lift chair. Scheduled appt to further discuss 06/20 * Telephone Encounter - Jaye Mcneil OSA - 06/15/2024 1:56 PM EDT Reason for patient's call: asking to speak to nurse about motorized scooter and lift chair [facility]. documented in this encounter Plan of Treatment Upcoming Encounters Date Type Department Care Team (Latest Contact Info) Description 06/20/2024 1:00 PM EDT Office Visit [facility] [address] [facility] [address] Velasquez Valencia MD [address] [facility] [address] 07/18/2024 10:30 AM EDT Office Visit [facility] [address] [facility] [address] [facility] [address] [facility] [address] 08/02/2024 11:06 AM EDT Hospital Encounter OR [facility], Operating Room, [facility] - 4th Floor [address] [facility] [place] [address] Belen Jones, DO [address] [place] [address] 08/02/2024 11:06 AM EDT - 08/02/2024 11:50 AM EDT Surgery OR [facility], Operating Room, [facility] - 4th Floor [address] [facility] [place] [address] Belen Jones, DO [address] [place] [address] ESOPHAGOGASTRODUODENOSCOPY (EGD), FLEXIBLE, TRANSORAL, ENDOSCOPIC ULTRASOUND 08/18/2024 11:00 AM EDT Office Visit [place] [address] [facility] [address] Velasquez Valencia MD [address] [facility] [address] Scheduled Procedures Name Priority Associated Diagnoses Date/Ti [...] 02/07/2021 DISCUSS TOBACCO CESSATION (REFER TO SMARTSET #3493) 10/16/2023 10/16/2022 Zoster Vaccines (1 of 2) [...] this encounter Medical Devices Implanted Type Area Test Boring Crew Chief Device Identifier Shelf Expiration Date Model / Serial / Lot Suture [place] Dbl Load 4.75mm - [id number] Implanted:Qty: 1 on 12/01/2019 by Judith Condon DO at OR [facility] Right: Shoulder [employer] 07/17/2021 AR-2324BCT -2 / / [id number] Suture [place] Dbl Load 5.5mm - [id number] Implanted:Qty: 1 on 12/01/2019 by Judith Condon DO at OR [facility] Right: Shoulder [employer] 09/16/2021 AR-2323BCT -2 / / [id number] documented as of this encounter Advance Directives [...] Directives occurred with: Not Discussed Care Teams Facilities Engineer Relationship Specialty Start Date End Date Velasquez Valencia MD [address] [place] [facility] [place] [address] PCP - General Family Medicine 09/09/22 documented as of this encounter
--- OUTSIDE RECORDS SUMMARY | 2024-07-14 04:38 | External Medical Summary | Summary of Care ---
Author Name Unknown Organization [facility] Address [address] [facility] [address] Phone [phone] Care Team Providers Care Underwriting Consultant Name Role Phone Velasquez Valencia MD Primary Care Provider +1- [phone] Reason for Visit * Reason Onset Date Comments Med Request 06/14/2024 Encounter Details Date Type Department Care Team (Late st Contact Info) Description 06/14/2024 Telephone [facility] [address] [place] [address] Velasquez Valencia MD [address] [place] [address] Med Request Allergies Active Allergy [...] less than 7.0% ([facility]) Inject 40 units twice daily- this replaces [...] less than 7.0% ([facility]) Inject 32 units with breakfast 22 units [...] 140 [see chart at bottom of [facility] visit 05/09/24], Reported on 05/09/2024 Pioglitazone HCl 45 MG Oral Tablet (Actos)Indications :Type 2 diabetes mellitus with hemoglobin A1c goal of less than 7.0% ([facility]) Take 1 Tablet by mouth in the [...] mRNA, LNP-s, No Pre serve, 2-Dose Series (Right On Interactive) 10/21/2021,03/01/2021,02/07/2021 H1N1 2009 Influenza, IM 11/04/2009 Pneumococcal Conjugate Vacci ne, 20-valent ([id number]) 07/09/2023 Pneumococcal Polysaccharide PPV23 (Pneumovax) 11/03/2015,02/09/2006 Seasonal [...] Telephone Encounter - Nely Randhawa OSA - 06/16/2024 11:32 AM EDT Patient already scheduled. 06/16/2024 * Telephone Encounter - Velasquez Valencia MD [...] for the patient. Thank you, Tracy Connolly [facility] Student Success Counselor Senior Information Security Engineer [facility] ([facility]) 06/14/2024,8:42 AM documented in this encounter Plan of Treatment Upcoming Encounters Date Type Department Care Team (Latest Contact Info) Description 06/20/2024 1:00 PM EDT Office Visit [facility], [place] [address] [facility] [address] Velasquez Valencia MD [address] [facility] [address] 07/18/2024 10:30 AM EDT [address] [address] [facility] [address] [facility] [address] 08/02/2024 11:06 AM EDT Hospital Encounter OR [facility], Operating Room, [facility] - 4th Floor [address] [place] [address] Belen Jones, DO [address] [place] [address] 08/02/2024 11:06 AM EDT - 08/02/2024 11:50 AM EDT Surgery OR [facility], Operating Room, [facility] - 4th Floor [address] [place] [address] Belen Jones, [address] [place] [address] ESOPHAGOGASTRODUODENOSCOPY (EGD), FLEXIBLE, TRANSORAL, ENDOSCOPIC ULTRASOUND 08/18/2024 11:00 AM EDT Office Visit [facility] [address] [facility] [phone] Velasquez Valencia MD [address] [facility] [address] Scheduled Procedures Name Priority Associated Diagnoses Date/Ti [...] this encounter Medical Devices Implanted Type Area Take Away Attendant Device Identifier Shelf Expiration Date Model / Serial / Lot Suture Lavinia Dbl Load 4.75mm - [id number] Implanted:Qty: 1 on 12/01/2019 by Judith Condon DO at OR [facility] Right: Shoulder [employer] 07/17/2021 AR-2324BCT -2 / / [id number] Suture [place]avinia Dbl Load 5.5mm - [id number] Implanted:Qty: 1 on 12/01/2019 by Judith Condon DO at OR [facility] Right: Shoulder [employer] 09/16/2021 AR-2323BCT -2 / / [id number] documented as of this encounter Advance Directives [...] Directives occurred with: Not Discussed Care Teams Underwriting Consultant Relationship Specialty Start Date End Date Velasquez Valencia MD [address] [facility] [place] [address] PCP - General Family Medicine 09/09/22 documented as of this encounter
--- OUTSIDE RECORDS SUMMARY | 2024-07-14 04:38 | External Medical Summary | Summary of Care ---
Author Name Unknown Organization [facility] Address [address] [facility] [address] Phone [phone] Care Team Providers Care Collision Worker Name Role Phone Velasquez Valencia MD Primary Care Provider +1- [phone] Reason for Visit * Reason Onset Date Comments Med Request 06/14/2024 Encounter Details Date Type Department Care Team (Late st Contact Info) Description 06/14/2024 Telephone [facility] [address] [place] [address] Velasquez Valencia MD [address] [place] [address] Med Request Allergies Active Allergy [...] ([facility]) Inject 40 units twice daily- this replaces [...] ([facility]) Inject 32 units with breakfast 22 units [...] over 140 [see chart at bottom of [facility] visit 05/09/24], Reported on 05/09/2024 Pioglitazone HCl 45 MG Oral Tablet (Actos)Indications :Type 2 diabetes mellitus with hemoglobin A1c goal of less than 7.0% ([facility]) Take 1 Tablet by mouth in the [...] [facility]) Use to check blood sugar once daily [...] mRNA, LNP-s, No Pre serve, 2-Dose Series (Inhance Media) 10/21/2021,03/01/2021,02/07/2021 H1N1 2009 Influenza, IM 11/04/2009 Pneumococcal Conjugate Vacci ne, 20-valent ([id number]) 07/09/2023 Pneumococcal Polysaccharide PPV23 (Pneumovax) 11/03/2015,02/09/2006 Seasonal [...] encounter Miscellaneous Notes * Telephone Encounter - Mel Walker LPN [...] for the patient. Thank you, Tracy Connolly [facility] Gaming Host Vegetable Scullion [facility] ([facility]) 06/14/2024,8:42 AM documented in this encounter Plan of Treatment Upcoming Encounters Date Type Department Care Team (Latest Contact Info) Description 07/18/2024 10:30 AM EDT Office Visit Pharmacy, [place] [address] [facility] [address] [facility] [address] [facility] [address] 08/02/2024 11:06 AM EDT Hospital Encounter OR [facility], Operating Room, [facility] - 4th Floor [address] [facility] [place] [address] Belen Jones, [address] [place] [address] 08/02/2024 11:06 AM EDT - 08/02/2024 11:50 AM EDT Surgery OR [facility], Operating Room, [facility] - 4th Floor [address] [place] [address] Belen Jones, [address] [place] [address] ESOPHAGOGASTRODUODENOSCOPY (EGD), FLEXIBLE, TRANSORAL, ENDOSCOPIC ULTRASOUND 08/18/2024 11:00 AM EDT Office Visit [facility] [address] [facility] [address] Velasquez Valencia MD [address] [facility] [address] Scheduled Procedures Name Priority Associated Diagnoses Date/Ti [...] this encounter Medical Devices Implanted Type Area File System Installer Device Identifier Shelf Expiration Date Model / Serial / Lot Suture [place] Dbl Load 4.75mm - [id number] Implanted:Qty: 1 on 12/01/2019 by Judith Condon DO at OR [facility] Right: Shoulder [employer] 07/17/2021 AR-2324BCT -2 / / [id number] Suture [place] Dbl Load 5.5mm - [id number] Implanted:Qty: 1 on 12/01/2019 by Judith Condon DO at OR [facility] Right: Shoulder [employer] 09/16/2021 AR-2323BCT -2 / / [id number] documented as of this encounter Advance Directives [...] Directives occurred with: Not Discussed Care Teams Collision Worker Relationship Specialty Start Date End Date Velasquez Valencia MD [address] [facility] [place] [address] PCP - General Family Medicine 09/09/22 documented as of this encounter
--- OUTSIDE RECORDS SUMMARY | 2024-07-14 04:39 | External Medical Summary | Summary of Care ---
Author Name Unknown Organization [facility] Address [address] [facility] [place] [address] Phone [phone] Care Team Providers Care Chiseler Head Name Role Phone Velasquez Valencia MD Primary Care Provider +1- [phone] Reason for Visit * Reason Comments eRx-Medication Refill Encounter Details Date Type Department Care Team (Late st Contact Info) Description 05/30/2024 Refill [facility] [address] [place] [address] Velasquez Valencia MD [address] [place] [address] Neuropathy Allergies Active Allergy Reactions Criticality Noted Date Comments Cefaclor Unknown 07/26/2018 As child Empagliflozin Other (Please comment) 05/16/2021 DKA with hospitalization Nsaids High 04/19/2019 Gastric problems Other Reaction(s): gastroparesis, kidney problems, use with caution : hx esophagus damage documented as of this encounter (statuses as of 05/31/2024) Medications Medication Sig Dispensed Refills Start Date End Date Status Albuterol Sulfate HFA 108 (90 Base) MCG/ACT Inhalation Aerosol SolutionIndicatio ns:RSV bronchitis inhale 2 puffs by mouth and INTO THE LUNGS every 6 hours if needed for cough shortness of breath or WITHDRAWAL SYMPTOMS 54 g 3 3 Active Famotidine 20 MG Oral Tablet (Pepcid) Take 1 Tablet by mouth every night at bedtime. 90 Tablet 3 3 Active metFORMIN HCl 500 MG Oral Tablet (Glucophage)Indic ations:Type 2 diabetes mellitus with hemoglobin A1c goal of less than 7.0% (HCC) Take 2 Tablets by mouth in the morning and 2 Tablets in the evening. 360 Tablet 3 3 Active Losartan Potassium 100 [...] in the morning. 14 Each 4 Active Torsemide 10 MG Oral Tablet (Demadex) Take 1 Tablet by mouth in the morning. 30 Tablet 4 Active Ondansetron HCl 4 MG Oral [...] per day 180 Tablet 3 4 Active Pantoprazole Sodium 40 MG Oral Tablet Delayed Release (Protonix) TAKE 1 TABLET BY MOUTH TWICE A DAY 180 Tablet 1 4 Active Toujeo SoloStar 300 UNIT/ML Subcutaneous [...] ([facility]) Inject 32 units with breakfast 22 [...] over 140 [see chart at bottom of [facility] visit 05/09/24], Reported on 05/09/2024 Pioglitazone HCl 45 MG Oral Tablet (Actos)Indication s:Type 2 diabetes mellitus with hemoglobin A1c goal of less than 7.0% ([facility]) Take 1 Tablet by mouth in [...] by mouth in the morning. 3 Active Cyclobenzaprine HCl 10 MG Oral Tablet (Flexeril)Indicat ions:Lumbar disc herniation TAKE 1 TABLET BY MOUTH AT BEDTIME ONLY NEEDED 30 Tablet 4 Active Lidocaine 4 % External Patch (Aspercreme) [...] for constipation 355 mL 3 4 Active Polyethylene Glycol 3350 17 GM/SCOOP Oral [...] 7.0% ([facility]) Use to check blood sugar once daily as needed 100 Strip 4 Active OneTouch Delica Lancets 33GIndications:Ty pe 2 diabetes mellitus with hemoglobin A1c goal of less than 7.0% ([facility]) Use to check blood sugars once daily as needed 100 Each 4 Active Movantik 25 MG Oral Tablet (Naloxegol Oxalate) take 1 tablet by mouth in the morning 30 Tablet 5 4 Active Gabapentin 100 MG Oral Capsule (Neurontin)Indica tions:Neuropathy TAKE 2 CAPSULES BY MOUTH EVERY 12 HOURS 120 Capsule 3 4 Active Gabapentin 100 MG Oral Capsule (Neurontin)Indica tions:Neuropathy TAKE 2 CAPSULES BY MOUTH EVERY 12 HOURS 120 Capsule 4 05/31/20 24 Discontinued documented as of this encounter (statuses as of 05/31/2024) Active Problems Problem Noted Date Diagnosed Date [...] as of this encounter (statuses as of 05/31/2024) Resolved Problems Problem Noted Date Diagnosed Date [...] as of this encounter (statuses as of 05/31/2024) Immunizations Name Administration Dates Next Due COVID-19 mRNA, LNP-s, No Pre serve, 2-Dose Series (Coinify) 10/21/2021,03/01/2021,02/07/2021 H1N1 2009 Influenza, IM 11/04/2009 Pneumococcal Conjugate Vacci ne, 20-valent ([id number]) 07/09/2023 Pneumococcal Polysaccharide PPV23 (Pneumovax) 11/03/2015,02/09/2006 Seasonal [...] Telephone Encounter - Radha Fair LPN - 05/31/2024 7:39 AM EDTPending Prescriptions: Disp Refills Gabapentin 100 MG Oral Capsule (Neurontin) 120 Ca*3 Sig: TAKE 2 CAPSULES BY MOUTH EVERY 12 HOURS * Telephone Encounter - Ashlee Teran - 05/30/2024 1:44 PM EDTPending Prescriptions: Disp Refills Gabapentin 100 MG Oral Capsule [Pharmacy M*120 Ca*0 Sig: TAKE 2CAPSULES BY MOUTH EVERY 12 HOURS documented in this encounter Plan of Treatment Upcoming Encounters Date Type Department Care Team (Latest Contact Info) Description 07/18/2024 10:30 AM EDT Office Visit Pharmacy, [place] [address] [facility] [address] [facility] [address] [facility] [facility] [address] 08/02/2024 11:06 AM EDT Hospital Encounter OR [facility], Operating Room, [facility] - 4th Floor [address] [facility] [address] Belen Jones, DO [address] [place] [address] 08/02/2024 11:06 AM EDT - 08/02/2024 11:50 AM EDT Surgery OR [facility], Operating Room, [facility] Floor [address] [facility] [place] [address] Belen Jones, DO [address] [place] [address] ESOPHAGOGASTRODUODENOSCOPY (EGD), FLEXIBLE, TRANSORAL, ENDOSCOPIC ULTRASOUND 08/18/2024 11:00 AM EDT Office Visit [facility] [address] [facility] [phone] Velasquez Valencia MD [address] [facility] [address] Scheduled Procedures Name Priority Associated Diagnoses Date/Ti [...] 05/09/2025 05/09/2024, 03/19, 04/12/2024, Additional history exists DTaP,Tdap,and Td Vaccines (2 [...] this encounter Medical Devices Implanted Type Area Tariff Compiling Clerk Device Identifier Shelf Expiration Date Model / Serial / Lot Suture [place] Dbl Load 4.75mm - [id number] Implanted:Qty: 1 on 12/01/2019 by Judith Condon DO at OR [facility] Right: Shoulder [employer] 07/17/2021 AR-2324BCT -2 / / [id number] Suture [place] Dbl Load 5.5mm - [id number] Implanted:Qty: 1 on 12/01/2019 by Judith Condon DO at OR [facility] Right: Shoulder [employer] 09/16/2021 AR-2323BCT -2 / / [id number] documented as of this encounter Visit Diagnoses Diagnosis Neuropathy Mononeuritis of unspecified site Acute pancreatitis documented in this encounter Advance [...] Directives occurred with: Not Discussed Care Teams Chiseler Head Relationship Specialty Start Date End Date Velasquez Valencia MD [address] [facility] [place] [address] PCP - General Family Medicine 09/09/22 documented as of this encounter
--- OUTSIDE RECORDS SUMMARY | 2024-07-14 04:39 | External Medical Summary | Summary of Care ---
Author Name Unknown Organization [facility] Address [address] [place] [place] [place] [facility] [place] [address] Phone [phone] Care Team Providers Care Rock Room Worker Name Role Phone Velasquez Valencia MD Primary Care Provider +1- [phone] Reason for Visit * Reason Comments eRx-Medication Refill Encounter Details Date Type Department Care Team (Late st Contact Info) Description 05/28/2024 Refill [facility] [address] [place] [address] Velasquez Valencia MD [address] [place] [address] Allergies Active Allergy Reactions Criticality Noted Date Comments Cefaclor Unknown 07/26/2018 As child Empagliflozin Other (Please comment) 05/16/2021 DKA with hospitalization Nsaids High 04/19/2019 Gastric problems Other Reaction(s): gastroparesis, kidney problems, use with caution : hx esophagus damage documented as of this encounter (statuses as of 05/30/2024) Medications Medication Sig Dispensed Refills Start Date [...] than 7.0% ([facility]) Take 2 Tablets by mouth in [...] than 7.0% ([facility]) Inject 40 units twice daily- this replaces lantus 54 mL 4 01/19/2024 Active BD Pen Needle Short U/F 31G X 8 MM (Insulin Pen Needle)Indications :Type 2 diabetes mellitus with hemoglobin A1c goal of less than 7.0% ([facility]) Use to inject insulin 5 times daily [...] by mouth in the morning. 09/22/2023 Active Cyclobenzaprine HCl 10 MG Oral Tablet (Flexeril)Indicati ons:Lumbar disc herniation TAKE 1 TABLET BY MOUTH AT BEDTIME ONLY NEEDED 30 Tablet 03/22/2024 Active Lidocaine 4 % External Patch (Aspercreme) [...] the morning. 90 Tablet 3 04/28/2024 Active Gabapentin 100 MG Oral Capsule (Neurontin)Indicat ions:Neuropathy TAKE 2 CAPSULES BY MOUTH EVERY 12 HOURS 120 Capsule 05/04/2024 Active OneTouch Verio In Vitro Strip (Glucose Blood)Indications: Type 2 diabetes mellitus with hemoglobin A1c goal of less than 7.0% ([facility]) Use to check blood sugar once daily as needed 100 Strip 05/09/2024 Active OneTouch Kam Lancets 33GIndications:Typ e 2 diabetes mellitus with hemoglobin A1c goal of less than 7.0% ([facility]) Use to check blood sugars once daily as needed 100 Each 05/09/2024 Active Movantik 25 MG Oral Tablet (Naloxegol Oxalate) take 1 tablet by mouth in the morning 30 Tablet 5 05/24/2024 Active documented as of this encounter (statuses as of 05/30/2024) Active Problems Problem Noted Date Diagnosed Date [...] as of this encounter (statuses as of 05/30/2024) Resolved Problems Problem Noted Date Diagnosed Date [...] as of this encounter (statuses as of 05/30/2024) Immunizations Name Administration Dates Next Due COVID-19 mRNA, LNP-s, No Pre serve, 2-Dose Series (Searcheeze) 10/21/2021,03/01/2021,02/07/2021 H1N1 2009 Influenza, IM 11/04/2009 Pneumococcal Conjugate Vacci ne, 20-valent ([id number]) 07/09/2023 Pneumococcal Polysaccharide PPV23 (Pneumovax) 11/03/2015,02/09/2006 Seasonal [...] encounter Miscellaneous Notes * Telephone Encounter - Madeleine Alicea RPh - 05/30/2024 1:04 PM EDTRefused Prescriptions: Disp Refills NIFEdipine 10 MG Oral Capsule (Procardia) 90 Cap*0 Sig: TAKE 1 CAPSULE BY MOUTH THREE TIMES DAILYRefused By: ROMANA ALICEANReason for Refusal: Medication NeverPrescribed for the Patient documented in this encounter Plan of Treatment Upcoming Encounters Date Type Department Care Team (Latest Contact Info) Description 07/18/2024 10:30 AM EDT [address] [place] [address] [place], [facility] [address] [place] [address] 08/02/2024 11:06 AM EDT Hospital Encounter OR [facility], Operating Room, [facility] - 4th Floor [address] [facility] [place] [address] Belen Jones, DO [address] [place] [address] 08/02/2024 11:06 AM EDT - 08/02/2024 11:50 AM EDT Surgery OR [facility], Operating Room, [facility] - 4th Floor [address] [place] [address] Belen Jones, DO [address] [place] [address] ESOPHAGOGASTRODUODENOSCOPY (EGD), FLEXIBLE, TRANSORAL, ENDOSCOPIC ULTRASOUND 08/18/2024 11:00 AM EDT Office Visit [facility] [address] [place] [address] Velasquez Valencia MD [address] [facility] [place] [address] Scheduled Procedures Name Priority Associated Diagnoses Date/Ti [...] this encounter Medical Devices Implanted Type Area Process Chemist Device Identifier Shelf Expiration Date Model / Serial / Lot Suture [place] Dbl Load 4.75mm - [id number] Implanted:Qty: 1 on 12/01/2019 by Judith Condon DO at OR [facility] Right: Shoulder [employer] 07/17/2021 AR-2324BCT -2 / / [id number] Suture [place] Dbl Load 5.5mm - [id number] Implanted:Qty: 1 on 12/01/2019 by Judith Condon DO at OR [facility] Right: Shoulder [employer] 09/16/2021 AR-2323BCT -2 / / [id number] documented as of this encounter Advance Directives [...] Directives occurred with: Not Discussed Care Teams Rock Room Worker Relationship Specialty Start Date End Date Velasquez Valencia MD [address] [place] [address] PCP - General Family Medicine 09/09/22 documented as of this encounter
--- OUTSIDE RECORDS SUMMARY | 2024-07-14 04:39 | External Medical Summary | Summary of Care ---
Author Name Unknown Organization [facility] Address [address] [facility] [address] Phone [phone] Care Team Providers Care Advanced Solutions Architect Name Role Phone Tati Polo MD Primary Care Provider +1- [phone] Reason for Visit * Reason Onset Date Comments Nurse Documentation 05/23/2024 Encounter Details Date Type Department Care Team (Late st Contact Info) Description 05/23/2024 Telephone [facility] [address] [place] [address] Tati Polo MD [address] [place] [address] Nurse Documentation Allergies Active Allergy Reactions Criticality Noted Date Comments Cefaclor Unknown 07/26/2018 As child Empagliflozin Other (Please comment) 05/16/2021 DKA with hospitalization Nsaids High 04/19/2019 Gastric problems Other Reaction(s): gastroparesis, kidney problems, use with caution : hx esophagus damage documented as of this encounter (statuses as of 05/24/2024) Medications Medication Sig Dispensed Refills Start Date [...] hemoglobin A1c goal of less than 7.0% ([facility]) Inject 40 units twice daily- this [...] the morning. 90 Tablet 3 4 Active Gabapentin 100 MG Oral Capsule (Neurontin)Indica tions:Neuropathy TAKE 2 CAPSULES BY MOUTH EVERY 12 HOURS 120 Capsule 4 Active OneTouch Verio In Vitro Strip (Glucose Blood)Indications :Type 2 diabetes mellitus with hemoglobin A1c goal of less than 7.0% ([facility]) Use to check blood sugar once daily as needed 100 Strip 4 Active OneTouch Delica Lancets 33GIndications:Ty pe 2 diabetes mellitus with hemoglobin A1c goal of less than 7.0% ([facility]) Use to check blood sugars once daily as needed 100 Each 4 Active Movantik 25 MG Oral Tablet (Naloxegol Oxalate) take 1 tablet by mouth in the morning 30 Tablet 4 05/24/20 24 Discontinued documented as of this encounter (statuses as of 05/24/2024) Active Problems Problem Noted Date Diagnosed Date [...] as of this encounter (statuses as of 05/24/2024) Resolved Problems Problem Noted Date Diagnosed Date [...] 09/13/2017 12/18/2017 Cellulitis of left foot 09/10/2017 1206/2017 Abscess of left foot 09/10/2017 017 Type [...] as of this encounter (statuses as of 05/24/2024) Immunizations Name Administration Dates Next Due COVID-19 mRNA, LNP-s, No Pre serve, 2-Dose Series (Nimbus Data) 10/21/2021,03/01/2021,02/07/2021 H1N1 2009 Influenza, IM 11/04/2009 Pneumococcal Conjugate Vacci ne, 20-valent ([id number]) 07/09/2023 Pneumococcal Polysaccharide PPV23 (Pneumovax) 11/03/2015,02/09/2006 Seasonal [...] encounter Miscellaneous Notes * Telephone Encounter - Sparkle Garcia LPN - 05/24/2024 2:23 PM EDT DME and note sent to [facility] at [phone] * Addendum Note - Tati Polo MD - 05/24/2024 12:07 PM EDTAddended by: TATI POLO on: 05/24/2024 12:07 PM Modules accepted: Orders * Telephone Encounter - Tati Polo MD - 05/24/2024 12:05 PM EDT DME for the order needed entered. Please print it and the note from 05/09/24 and fax to [facility] [phone] * Telephone Encounter - Garret Webster MED ASSIST - 05/23/2024 10:59 AM EDT Received fax from [facility], stating prescription needed: first prothesis and necessary supplies. Below is an explanation od the K levels as well as general summary that you can use to guide documentation documented in this encounter Plan of Treatment Upcoming Encounters Date Type Department Care Team (Latest Contact Info) Description 07/18/2024 10:30 AM EDT Office Visit [address] [address] [facility] [address] [place] [address] 08/02/2024 11:06 AM EDT Hospital Encounter OR [facility], Operating Room, [facility] - 4th Floor [address] [place] [address] Belen Jones, DO [address] [place] [address] 08/02/2024 11:06 AM EDT - 08/02/2024 11:50 AM EDT Surgery OR [facility], Operating Room, [facility] - 4th Floor [address] [facility] [place] [address] Belen Jones, DO [address] [place] [address] ESOPHAGOGASTRODUODENOSCOPY (EGD), FLEXIBLE, TRANSORAL, ENDOSCOPIC ULTRASOUND 08/18/2024 11:00 AM EDT [address] [place] [id number] Tati Polo MD [address] [place] [address] Scheduled Procedures Name Priority Associated Diagnoses Date/Ti [...] this encounter Medical Devices Implanted Type Area Tire Groover Device Identifier Shelf Expiration Date Model / Serial / Lot Suture [place] Dbl Load 4.75mm - [id number] Implanted:Qty: 1 on 12/01/2019 by Judith Condon DO at [facility] Right: Shoulder [employer] 07/17/2021 AR-2324BCT -2 / / [id number] Suture [place] Dbl Load 5.5mm - [id number] Implanted:Qty: 1 on 12/01/2019 by Judith Condon DO at OR [facility] Right: Shoulder [employer] 09/16/2021 AR-2323BCT -2 / / [id number] documented as of this encounter Visit Diagnoses Diagnosis Hx of BKA, left (HCC)- Primary Acute pancreatitis documented in this encounter [...] Directives occurred with: Not Discussed Care Teams Advanced Solutions Architect Relationship Specialty Start Date End Date Tati Polo MD [address] [facility] [place] [address] PCP - General Family Medicine 09/09/22 documented as of this encounter
--- OUTSIDE RECORDS SUMMARY | 2024-07-14 04:39 | External Medical Summary | Summary of Care ---
Author Name Unknown Organization [facility] Address [address] [facility] [address] Phone [phone] Care Team Providers Care Wire Brush Maker Name Role Phone Tati Polo MD Primary Care Provider +1- [phone] Reason for Visit * Reason Onset Date Comments Medication Refill 06/14/2024 Encounter Details Date Type Department Care Team (Late st Contact Info) Description 06/14/2024 Refill [facility] [address] [place] [address] Tati Polo MD [address] [place] [address] Lumbar disc herniation Allergies Active Allergy Reactions Criticality Noted Date [...] goal of less than 7.0% ([facility]) Take 2 Tablets by mouth in the [...] goal of less than 7.0% ([facility]) Inject 40 units twice daily- this replaces lantus 54 mL 4 01/19/2024 Active BD Pen Needle Short U/F 31G X 8 MM (Insulin Pen Needle)Indication s:Type 2 diabetes mellitus with hemoglobin A1c goal of less than 7.0% ([facility]) Use to inject insulin 5 times daily [...] goal of less than 7.0% ([facility]) Use to check blood sugar once daily as needed 100 Strip 05/09/2024 Active OneTouch Delica Lancets 33GIndications:Ty pe 2 diabetes mellitus with hemoglobin A1c goal of less than 7.0% ([facility]) Use to check blood sugars once daily [...] BEDTIME ONLY NEEDED 30 Tablet 06/14/2024 Active Cyclobenzaprine HCl 10 MG Oral Tablet (Flexeril)Indicat ions:Lumbar disc herniation TAKE 1 TABLET BY MOUTH AT BEDTIME ONLY NEEDED 30 Tablet 03/22/2024 4 Discontinu ed(Refill) documented as of this [...] mRNA, LNP-s, No Pre serve, 2-Dose Series (D-ÉG Thermoset) 10/21/2021,03/01/2021,02/07/2021 H1N1 2009 Influenza, IM 11/04/2009 Pneumococcal Conjugate Vacci ne, 20-valent ([id number]) 07/09/2023 Pneumococcal Polysaccharide PPV23 (Pneumovax) 11/03/2015,02/09/2006 Seasonal [...] Telephone Encounter - Tati Polo MD - 06/14/2024 10:28 AM EDTSigned Prescriptions: Disp Refills Cyclobenzaprine HCl 10 MG Oral Tablet (Fle*30 Tab*0 Sig: TAKE 1 TABLET BY MOUTH AT BEDTIME ONLY NEEDEDAuthorizing Provider: TATI POLO * Telephone Encounter - Tracy Connolly, sales training coordinator - 06/14/2024 8:38 AM EDT Did you pend patient's preferred pharmacy and medication before forwarding?yes Pharmacy: [id number] [address] [facility] Pending Prescriptions: Disp Refills Cyclobenzaprine HCl 10 MG Oral Tablet (Fl*30 Tab*0 Sig: TAKE 1 TABLET BY MOUTH AT BEDTIME ONLY NEEDED Last Visit: 05/09/2024 (in office), Visit date not found (telemedicine) Next Visit: 08/18/2024 If no future appointments scheduled, and last appointment is greater than a year ago, please schedule patient for a follow-up appointment Last date the medication was ordered: 03/22/24 Is this request for a controlled substance?No [...] PM TSH 0.698 06/30/2018 12:00 AM LDLCALC 48 12/13/2023 04:39 AM LDLCALC 108 01/08/2011 02:50 PM LDLDIRECT 60 04/11/2024 03:45 AM LDLDIRECT 133 (H) 04/12/2007 03:04 PM ALT 18 05/09/2024 01:59 PM ALT 26 03/28/2024 10:47 AM ALT 37 11/25/2019 08:53 AM HGBA1C 8.6 (H) 05/09/2024 01:59 PM HGBA1C 10.0 (H) 03/07/2024 05:17 AM HGBA1C 9.2 (H) 09/16/2020 01:55 PM documented in this encounter Plan of Treatment Upcoming Encounters Date Type Department Care Team (Latest Contact Info) Description 07/18/2024 10:30 AM EDT [facility] [place] [address] [facility] [address] [facility] [address] [facility] [address] 08/02/2024 11:06 AM EDT Hospital Encounter OR [facility], Operating Room, [facility] - 4th Floor [address] [facility] [place] [address] Belen Jones, DO [address] [place] [address] 08/02/2024 11:06 AM EDT - 08/02/2024 11:50 AM EDT Surgery OR [facility], Operating Room, [facility] - 4th Floor [address] [place] [phone] Belen Jones, DO [address] [place] [address] ESOPHAGOGASTRODUODENOSCOPY (EGD), FLEXIBLE, TRANSORAL, ENDOSCOPIC ULTRASOUND 08/18/2024 11:00 AM EDT Office Visit [facility] [address] [facility] [address] Tati Polo MD [address] [facility] [address] Scheduled Procedures Name Priority Associated Diagnoses Date/Ti [...] this encounter Medical Devices Implanted Type Area Therapy Manager Device Identifier Shelf Expiration Date Model / Serial / Lot Suture [place] Dbl Load 4.75mm - [id number] Implanted:Qty: 1 on 12/01/2019 by Judith Condon DO at OR [facility] Right: Shoulder [employer] 07/17/2021 AR-2324BCT -2 / / [id number] Suture [place] Dbl Load 5.5mm - [id number] Implanted:Qty: 1 on 12/01/2019 by Judith Condon, at OR [facility] Right: Shoulder [employer] 09/16/2021 AR-2323BCT -2 / / [id number] documented as of this encounter Visit Diagnoses Diagnosis Lumbar disc herniation Displacement of lumbar intervertebral disc without myelopathy Acute pancreatitis documented in this encounter Advance [...] Directives occurred with: Not Discussed Care Teams Wire Brush Maker Relationship Specialty Start Date End Date Tati Polo MD [address] [facility] [place] [address] PCP - General Family Medicine 09/09/22 documented as of this encounter
--- OUTSIDE RECORDS SUMMARY | 2024-07-14 04:40 | External Medical Summary | Summary of Care ---
Author Name Unknown Organization [facility] Address [address] [facility] [address] Phone [phone] Care Team Providers Care Baseboard Heating Installer Name Role Phone Tati Polo MD Primary Care Provider +1- [phone] Reason for Visit * Reason Comments eRx-Medication Refill Encounter Details Date Type Department Care Team (Late st Contact Info) Description 05/22/2024 Refill [facility] [address] [place] [address] Tati Polo MD [address] [place] [address] Allergies Active Allergy Reactions Criticality [...] of less than 7.0% ([facility]) Inject 40 units twice daily- this [...] ([facility]) Use to check blood sugars once daily as needed 100 Each 4 Active Movantik 25 MG Oral Tablet (Naloxegol Oxalate) take 1 tablet by mouth in the morning 30 Tablet 5 4 Active Movantik 25 MG Oral Tablet (Naloxegol Oxalate) take 1 tablet by mouth in the morning 30 Tablet 4 05/24/20 24 Discontinued documented as of this encounter (statuses as of 05/24/2024) Active Problems Problem Noted Date Diagnosed Date Hx of BKA, left 04/27/2024 History of pancreatitis 04/12/2024 S/P hardware removal 03/03/2024 Ankle wound, left, initial encounter 03/03/2024 Cellulitis of left lower extremity 03/03/2024 Acute pancreatitis 12/12/2023 History of diabetic ulcer of foot 12/12/2023 Fall 11/01/2023 Hypertensive emergency 10/30/2023 Elevated troponin 10/30/2023 Nausea and vomiting 10/27/2023 Abdominal pain, generalized 10/27/2023 Constipation 10/27/2023 Charcot ankle, left 10/27/2023 S/P ankle fusion 10/27/2023 Intractable nausea and vomiting 10/27/2023 Cortical age-related cataract, right eye 023 COPD, moderate 05/25/2023 Neuropathy 02/24/2023 Restrictive lung disease secondary to obesity Obstructive sleep apnea 11/02/2022 Lumbar disc herniation 10/20/2022 Chronic respiratory failure with hypercapnia Precordial pain 11/30/2021 DM type 2 causing vascular disease 10/23/2021 Gastroesophageal reflux disease without esophagi tis 05/07/2020 DDD (degenerative disc disease), cervical 2018 Cervical spinal stenosis 07/12/2019 History of DVT (deep vein thrombosis) 04/19/2019 Combined arterial insufficie ncy and corporo-venous [...] Problem Noted Date Diagnosed Date Resolved Date Thrush 12/12/2023 01/14/2024 Sepsis 10/28/2023 01/14/2024 Positive D dimer 10/27/2023 10/30/2023 Lactic acidosis 10/27/2023 10/30/2023 Body mass index (BMI) of 40. 0 to 44.9 in adult 10/26/2022 01/26/2024 Overview: Per Obesity protocol Fracture of nasal bones, ini tial encounter for closed fracture 10/23/2021 10/20/2022 Neuropathy 10/23/2021 10/20/2022 Diabetic ketoacidosis withou t coma associated with type 2 diabetes mellitus 03/02/2021 07/04/2021 Intellectual disability 10/25/201903/2022 Obesity, Class II, BMI 35-39 .9, isolated (see actual BMI) 04/19/2019 01/14/2024 HTN, goal below 130/80 12/18/201710/20 Leg DVT [...] IM 11/04/2009 Pneumococcal Conjugate Vacci ne, 20-valent ([id number]) 07/09/2023 Pneumococcal Polysaccharide PPV23 (Pneumovax) 11/03/2015,02/09/2006 Seasonal [...] Encounter - Tati Polo MD - 05/24/2024 9:16 AM EDTSigned Prescriptions: Disp Refills Movantik 25 MG Oral Tablet (Naloxegol Oxal*30 Tab*5 Sig: take 1 tablet by mouth in the morningAuthorizing Provider: TATI POLO * Telephone Encounter - Interface, E-[facility] Ss Inbound - 05/24/2024 6:03 AM EDT Pending Prescriptions: Disp Refills Movantik 25 MG Oral Tablet [Pharmacy Med N*30 Tab*0 Sig: take 1 tablet by mouth in the morning * Telephone Encounter - Radha Fair LPN - 05/23/2024 7:23 AM EDTPending Prescriptions: Disp Refills Movantik 25 MG Oral Tablet [Pharmacy Med N*30 Tab*0 Sig: take 1 tablet by mouth in the morning * Telephone Encounter - Ashlee Teran - 05/22/2024 1:56 PM EDTPending Prescriptions: Disp Refills Movantik 25 MG Oral Tablet [Pharmacy Med N*30 Tab*0 Sig: take 1tablet by mouth in the morning documented in this encounter Plan of Treatment Upcoming Encounters Date Type Department Care Team (Latest Contact Info) Description 07/18/2024 10:30 AM EDT Office Visit [facility] [place] [address] [facility] [address] [facility] [address] [facility] [place] [address] 08/02/2024 11:06 AM EDT Hospital Encounter OR [facility], Operating Room, [facility] - 4th Floor [address] [place], [place] [address] [address] Belen Jones, DO [address] [place] [address] 08/02/2024 11:06 AM EDT - 08/02/2024 11:50 AM EDT Surgery OR [facility], Operating Room, [facility] - 4th Floor [address] [place] [address] Belen Jones, DO [address] [place] [address] ESOPHAGOGASTRODUODENOSCOPY (EGD), FLEXIBLE, TRANSORAL, ENDOSCOPIC ULTRASOUND 08/18/2024 11:00 AM EDT Office Visit [facility] [address] [place] [address] Tati Polo MD [address] [place], [place] [id number] Scheduled Procedures Name Priority Associated Diagnoses Date/Ti [...] 02/07/2021 DISCUSS TOBACCO CESSATION (REFER TO SMARTSET #8561) 10/16/2023 10/16/2022 Zoster Vaccines (1 of 2) [...] this encounter Medical Devices Implanted Type Area Substance Abuse Technician Device Identifier Shelf Expiration Date Model / Serial / Lot Suture [place] Dbl Load 4.75mm - [id number] Implanted:Qty: 1 on 12/01/2019 by Judith Condon DO at OR [facility] Right: Shoulder [employer] 07/17/2021 AR-2324BCT -2 / / [id number] Suture [place] Dbl Load 5.5mm - [id number] Implanted:Qty: 1 on 12/01/2019 by Judith Condon DO at OR [facility] Right: Shoulder [employer] 09/16/2021 AR-2323BCT -2 / / [id number] documented as of this encounter Advance Directives [...] Directives occurred with: Not Discussed Care Teams Baseboard Heating Installer Relationship Specialty Start Date End Date Tati Polo MD [address] [place] [address] PCP - General Family Medicine 09/09/22 documented as of this encounter
--- OUTSIDE RECORDS SUMMARY | 2024-07-14 04:40 | External Medical Summary | Summary of Care ---
Author Name Unknown Organization [facility] Address [address] [facility] [address] Phone [phone] Care Team Providers Care Admissions Evaluator Name Role Phone Velasquez Valencia MD Primary Care Provider +1- [phone] Reason for Visit * Reason Onset Date Comments Advice 05/12/2024 Encounter Details Date Type Department Care Team (Late st Contact Info) Description 05/12/2024 Telephone [facility] [address] [place] [address] Velasquez Valencia MD [address] [place] [address] Advice Allergies Active Allergy Reactions Criticality Noted Date Comments Cefaclor Unknown 07/26/2018 As child Empagliflozin Other (Please comment) 05/16/2021 DKA with hospitalization Nsaids High 04/19/2019 Gastric problems Other Reaction(s): gastroparesis, kidney problems, use with caution : hx esophagus damage documented as of this encounter (statuses as of 05/15/2024) Medications Medication Sig Dispensed Refills Start Date [...] goal of less than 7.0% ([facility]) Inject 40 units twice daily- this replaces [...] FOUR TIMES DAILY 360 Capsule 04/26/2024 Active Movantik 25 MG Oral Tablet (Naloxegol Oxalate) take 1 tablet by mouth in the morning 30 Tablet 04/27/2024 Active Atorvastatin Calcium 20 MG Oral Tablet (Lipitor) Take 1 Tablet by mouth in the morning. 90 Tablet 3 04/28/2024 Active Gabapentin 100 MG Oral Capsule (Neurontin)Indicat ions:Neuropathy TAKE 2 CAPSULES BY MOUTH EVERY 12 HOURS 120 Capsule 05/04/2024 Active OneTouch Verio In Vitro Strip (Glucose Blood)Indications: Type 2 diabetes mellitus with hemoglobin A1c goal of less than 7.0% ([facility]) Use to check blood sugar once daily as needed 100 Strip 05/09/2024 Active OneTouch Delica Lancets 33GIndications:Typ e 2 diabetes mellitus with hemoglobin A1c goal of less than 7.0% ([facility]) Use to check blood sugars once daily as needed 100 Each 05/09/2024 Active documented as of this encounter (statuses as of 05/15/2024) Active Problems Problem Noted Date Diagnosed Date [...] as of this encounter (statuses as of 05/15/2024) Resolved Problems Problem Noted Date Diagnosed Date [...] as of this encounter (statuses as of 05/15/2024) Immunizations Name Administration Dates Next Due COVID-19 mRNA, LNP-s, No Pre serve, 2-Dose Series (Pfizer) 10/21/2021,03/01/2021,02/07/2021 H1N1 2009 Influenza, IM 11/04/2009 Pneumococcal Conjugate Vacci ne, 20-valent ([id number]) 07/09/2023 Pneumococcal Polysaccharide PPV23 (Pneumovax) 11/03/2015,02/09/2006 Seasonal [...] encounter Miscellaneous Notes * Telephone Encounter - Sumaya Jiménez OSA - 05/15/2024 12:24 PM EDT Reason for patient's call: speak nayeli roger Caller was transferred to at the clinic. * Telephone Encounter - Mel Walker LPN - 05/15/2024 12:14 PM EDT Patients significant other called to confirm where the script was sent by kana. I made her aware of where the script was sent. * Telephone Encounter - Kana Queen LPN - 05/15/2024 12:06 PM EDT Spoke to Ni, she is [facility] [place] Order faxed per her request * Telephone Encounter - Mallorie Baldwin OSA - 05/15/2024 11:59 AM EDT Reason for patient's call: Wheelchair telephone order clerk room service was transferred to [place] at the nurse line. * Telephone Encounter - Velasquez Valencia MD - 05/12/2024 4:36 PM EDT DME printed and at my desk. Please put through to [facility] with my note from 04/14/24. * Telephone Encounter - Garret Webster MED ASSIST - 05/12/2024 11:45 AM EDT Contacted patient and asked what kind of wheelchair we would like patient stated; Has a wheelchair now but needs one for over 300 lb. [facility] can't get him without a new rx, he [facility] through [facility] and wants one with More padding. * Telephone Encounter - Rhea Kruger LPN - 05/12/2024 9:27 AM EDT Patient aware and verbalized understanding [facility] then to [facility] The order needs to indicate he is over 300lb. I added this to order. Order pending * Telephone Encounter - Garret Webster MED ASSIST - 05/12/2024 9:00 AM EDT Attempted to contact patient, asked where he would like DME sent Patient states he would like a new wheelchair due to his one falling apart. Please advise to TE documented in this encounter Plan of Treatment Upcoming Encounters Date Type Department Care Team (Latest Contact Info) Description 07/18/2024 10:30 AM EDT [facility] [address] [facility] [address] [facility] [address] [facility] [address] 08/02/2024 11:06 AM EDT Hospital Encounter OR [facility], Operating Room, [facility] - 4th Floor [address] [place] [address] Belen Jones, DO [address] [place] [address] 08/02/2024 11:06 AM EDT - 08/02/2024 11:50 AM EDT Surgery OR [facility], Operating Room, [facility] - 4th Floor [address] [place] [address] Belen Jones, DO [address] [place] [address] ESOPHAGOGASTRODUODENOSCOPY (EGD), FLEXIBLE, TRANSORAL, ENDOSCOPIC ULTRASOUND 08/18/2024 11:00 AM EDT Office Visit [facility] [address] [facility] [address] Velasquez Valencia [facility] [address] [facility] [address] Scheduled Procedures Name Priority Associated Diagnoses Date/Ti [...] 10/16/2022 Zoster Vaccines (1 of 2) 2023 *COPD SEVERITY VERIFIED BY PFT 04/30/2024 Influenza Vaccine (FLU shot) (#1) 2024 07/09/2023, [...] this encounter Medical Devices Implanted Type Area Transmission Tester Device Identifier Shelf Expiration Date Model / Serial / Lot Suture [place] Dbl Load 4.75mm - [id number] Implanted:Qty: 1 on 12/01/2019 by Judith Condon, at OR [facility] Right: Shoulder [employer] 07/17/2021 AR-2324BCT -2 / / [id number] Suture [place] Dbl Load 5.5mm - [id number] Implanted:Qty: 1 on 12/01/2019 by Judith Condon, at OR [facility] Right: Shoulder [employer] 09/16/2021 AR-2323BCT -2 / / [id number] documented as of this encounter Visit Diagnoses [...] Directives occurred with: Not Discussed Care Teams Admissions Evaluator Relationship Specialty Start Date End Date Velasquez Valencia MD [address] [place] [facility] [place] [address] PCP - General Family Medicine 09/09/22 documented as of this encounter
--- OUTSIDE RECORDS SUMMARY | 2024-07-14 04:40 | External Medical Summary | Summary of Care ---
Author Name Unknown Organization [facility] Address [address] [facility] [place] [address] Phone [phone] Care Team Providers Care Plow Holder Name Role Phone Velasquez Valencia MD Primary Care Provider +1- [phone] Reason for Visit * Reason Comments Follow Up Patient is here toda y for follow up visit Patient states no concerns Encounter Details Date Type Department Care Team (Late st Contact Info) Description 05/09/2024 1:00 PM EDT Office Visit [facility] [address] [place] [address] Velasquez Valencia MD [address] [place] [address] Hx of BKA, left ([facility])*; Status post bilateral below knee amputation ([facility]); Type 2 diabetes mellitus with hemoglobin A1c goal of less than 7.0% ([facility]); Constipation, unspecified constipation type; Gastroesophageal reflux disease without esophagitis; Gastroparesis Allergies Active Allergy Reactions Criticality Noted Date [...] EVERY 12 HOURS 120 Capsule 4 Active Movantik 25 MG Oral Tablet [...] mRNA, LNP-s, No Pre serve, 2-Dose Series (Evermind) 10/21/2021,03/01/2021,02/07/2021 H1N1 2009 Influenza, IM 11/04/2009 Pneumococcal Conjugate Vacci ne, 20-valent ([id number]) 07/09/2023 Pneumococcal Polysaccharide PPV23 (Pneumovax) 11/03/2015,02/09/2006 Seasonal [...] Sign Reading Time Taken Comments Blood Pressure 138/78 05/09/2024 12:43 PM EDT Pulse 65 05/09/2024 12:43 PM EDT Temperature 36.6 C (97.8 F) 05/09/2024 12:43 PM E DT Respiratory Rate 12 05/09/2024 12:43 PM EDT Oxygen Saturation 96% 05/09/2024 12:43 PM EDT Inhaled Oxygen Concentration - - Weight 147.4 kg (325 lb) 05/09/2024 12:43 PM EDT Height 188 cm (6' 2") 05/09/2024 12:43 PM EDT Body Mass Index 41.73 05/09/2024 12:43 PM EDT documented in this encounter Functional [...] this encounter Patient Instructions * Patient Instructions* Garret Webster MED ASSIST - 05/09/2024 12:42 PM EDT Vaccination is the best way to protect against hepatitis B. Most people should get 3 doses of hepatitis B vaccine. If you miss a dose or get behind schedule, get the next dose as soon as you can. There is no need to start over. Age for Hepatitis B Vaccine: INFANTS: *Infants whose mother HAS hepatitis B virus: #1 dose- at 2 month visit #2 dose- 1 month after dose #1 #3 dose- 7 months of age (at least 5 months after dose #1) *Infants whose mother does NOT have hepatitis B virus: #1 dose- - 2 months of age #2 dose- 1-4 months of age (at least 1 month after dose #1) #3 dose- 6-18 months of age ( at least 2 months after dose #2) *Other recommended age groups #1 dose- Now #2 dose- 1-2 months after dose #1 #3 dose- 4-6 months after dose #1 WHAT ARE THE RISKS FROM HEPATITIS B VACCINE? Hepatitis B vaccine is one of the safest vaccines. Getting the disease is much more likely to causeserious illness than getting the vaccine. MILD PROBLEMS: - soreness where the shot was given. - mild to moderate fever Acetaminophen or Ibuprofen (not aspirin) may be used to reduce fever and pain. SEVERE PROBLEMS: - serious allergic reaction is very rare. WHAT TO DO IF THERE IS A SERIOUS REACTION: - Call a doctor or get the person to a doctor right away. - Ask your doctor, nurse, or health department to file a Vaccine Adverse Event Report form. To filea report yourself you can call: (toll-free) LET YOUR DOCTOR KNOW IMMEDIATELY IF YOU HAVE DIFFICULTY BREATHING OR SWALLOWING, EXPERIENCE ITCHING OF FEET OR HANDS, HAVE SWELLING OF EYES, FACE OR INSIDE OF NOSE. documented in this encounter Progress Notes * Velasquez Valencia MD - 05/09/2024 12:59 PM EDT Subjective: Bry Akhtar Jr. is a 48 year old male here today for Chief Complaint Patient presents with Follow Up Patient is here today for follow up visit Patient states no concerns Pt presents for routine recheck. He has seen the vascular surgery office for follow up and suture removal. The stump has healed well and he has no further follow up with them. He is requesting an order from me [facility]. Bry has a left transtibial amputation and needs his first prosthesis. He is well healed and readyfor prosthetic treatment. He is currently a K3 user walking without assistive devices at variable speeds. 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 Other benefits of prosthetic use include: more independence, improved cardiovascular health, increase in bone density, better bowel and bladder function and improved psychological and social health. He is also requesting an order for Bariatric size bedside commode to go to [facility]. Is still having difficulties with constipation. Currently using: Miralax 3-4 capfuls per day. Movantix (still using a few tramadol per day for phantom pain - but has been able to decrease use). Colace bid Dulcolax up to 6 per day. Requesting Rx for Linzess, which has helped in the past. Working with [facility] on improving blood sugar readings. 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 Current use of insulin ([facility]) 09/13/2017 DDD (degenerative disc disease), cervical 07/12/2019 Diabetes mellitus type 2, insulin dependent ([facility]) 07/05/2017 Diabetic polyneuropathy associated with type 2 diabetes mellitus ([facility]) 07/24/2016 Displacement of lumbar intervertebral disc without myelopathy DM type 2, goal: symptom mgmt ([facility]) 09/13/2017 DM type 2, not at goal ([facility]) Dyslipidemia, goal LDL below 70 07/24/2016 Gastroesophageal reflux disease without esophagitis 05/07/2020 Gastroparesis 08/27/2015 GERD (gastroesophageal reflux disease) History of DVT (deep vein thrombosis) 04/19/2019 HTN, goal below 140/90 12/23/2015 Per HTN Protocol #27. HTN, goal: symptom mgmt only 09/13/2017 IBS (irritable bowel syndrome) 08/27/2015 Intellectual disability 10/25/2019 Major depressive disorder, recurrent, severe without psychotic features ([facility]) 12/22/2016 Obesity, Class II, BMI 35-39.9, isolated (see actual BMI) 04/19/2019 OTHER osseochondrosis ankle Primary localized osteoarthrosis, lower leg Sleep apnea, obstructive Tobacco use disorder 12/22/2016 Type 2 diabetes mellitus with hemoglobin A1c goal of less than 8.0% ([facility]) 07/05/2017 Past Surgical History: Procedure Laterality Date TOMAS HUTSON,W/ROTATOR CUFF Right 12/01/2019 ARTHROSCOPY SHOULDER ROTATOR CUFF performed by Judith Condon DO at OR [facility] COLONOSCOPY, DIAGNOSTIC (RECTUM) 04/18/2015 adenomatous polyp, repeat 5 yrs/[facility] COLONOSCOPY, DIAGNOSTIC (RECTUM) 04/15/2023 poor prep, repeat / [facility] COLONOSCOPY, DIAGNOSTIC (RECTUM) N/A 02/22/2024 normal/recall 5 years/COLONOSCOPY FLEXIBLE PROXIMAL DIAGNOSTIC performed by Marcela Del Valle MD at [facility] EGD, FLEXIBLE, DIAGNOSTIC 10/17/2014 mild-mod inflammation, repeat 1-2 mo/[facility] EGD, FLEXIBLE, DIAGNOSTIC 04/17/2015 normal bx/inpt [facility] EGD, FLEXIBLE, DIAGNOSTIC 05/08/2019 reflux esophagitis, gastritis, duodenitis, repeat 6 wks / [facility] EGD, FLEXIBLE, DIAGNOSTIC 08/18/2019 normal-EGD/[place] EGD, FLEXIBLE, DIAGNOSTIC N/A 05/02/2020 biopsies normal/[facility] EGD, FLEXIBLE, DIAGNOSTIC N/A 02/22/2024 antral gastritis/biopsies normal/ESOPHAGOGASTRODUODENOSCOPY (EGD), FLEXIBLE, TRANSORAL, DIAGNOSTIC performed by Marcela Del Valle MD at OR [facility] INJECT DX/THER SUBSTANCE INTERLAMINAR CERVICAL/THORACIC [...] breath or WITHDRAWAL SYMPTOMS 54 g 3 Famotidine 20 MG Oral Tablet (Pepcid) Take 1 Tablet by mouth every night at bedtime. 90 Tablet 3 metFORMIN HCl 500 MG Oral Tablet (Glucophage) Take 2 Tablets by mouth in the morning and 2 Tablets in the evening. 360 Tablet 3 Losartan Potassium 100 MG Oral Tablet [...] mouth in the morning. 14 Each 0 Torsemide 10 MG Oral Tablet (Demadex) Take 1 Tablet by mouth in the morning. 30 Tablet 0 Ondansetron HCl 4 MG Oral Tablet [...] by mouthtwice per day 180 Tablet 3 Pantoprazole Sodium 40 MG Oral Tablet Delayed Release (Protonix) TAKE 1 TABLET BY MOUTH TWICE A [id number] Tablet 1 Toumeghna SoloStar 300 UNIT/ML Subcutaneous Solution Pen-injector [...] over 140 [see chart at bottom of [facility] visit 05/09/24]) 120 mL4 Pioglitazone HCl 45 MG Oral Tablet (Actos) [...] 1 Tablet by mouth in the morning. Cyclobenzaprine HCl 10 MG Oral Tablet (Flexeril) TAKE 1 TABLET BY MOUTH AT BEDTIME ONLY NEEDED 30 Tablet 0 Lidocaine 4 % External Patch (Aspercreme) Place 1 Patch over 12 hours topically on the skin in the morning. 30 Patch 0 Metoclopramide HCl 10 MG Oral Tablet (Reglan) take 1 tablet by mouth three times a day ( 30 MINUTESbefore MEALS ) 270 Tablet 1 traMADol HCl 50 MG [...] as needed for constipation 355 mL 3 Polyethylene Glycol 3350 17 GM/SCOOP Oral Powder (Miralax) Take 1 scoop daily in 8 ounces of water.510 g 5 Dicyclomine HCl 10 MG Oral Capsule (Bentyl) TAKE 1 CAPSULE BY MOUTH FOUR TIMES DAILY 360 Capsule 0 Atorvastatin Calcium 20 MG Oral Tablet (Lipitor) Take 1 Tablet by mouth in the morning. 90 Tablet 3 Gabapentin 100 MG Oral Capsule (Neurontin) TAKE 2 CAPSULES BY MOUTH EVERY 12 HOURS 120 Capsule 0 OneTouch Verio In Vitro Strip (Glucose Blood) Use to check blood sugar once daily as needed 100 Strip 0 OneTouch Delica Lancets 33G Use to check blood sugars once daily as needed 100 Each 0 Movantik 25 MG Oral Tablet (Naloxegol Oxalate) take 1 tablet by mouth in the morning 30 Tablet 5 No current facility-administered medications for this visit. Objective: BP 138/78 | Pulse 65 | Temp 36.6 C (97.8 F) (Tympanic) | Resp 12 | Ht 1.88 m (6' 2")| Wt (!) 147.4 kg (325 lb) | SpO2 96% | BMI 41.73 kg/m | BSA 2.77 m GEN: NAD CHEST: CTA B CV: RRR ABD: Soft, NT/ND, No HSM, NABS EXT: left bka stump appears well healed. No open wounds, drainage, erythema. Assessment and Plan: Hx of BKA, left (HCC) (Primary) Status post bilateral below knee amputation (HCC) - DURABLE MEDICAL EQUIPMENT - DURABLE MEDICAL EQUIPMENT - CBC WITH WBC DIFFERENTIAL; Future; Expected date: 05/09/2024 -please see documentation above in subjective section. Type 2 diabetes mellitus with hemoglobin A1c goal of less than 7.0% ([facility]) - HEMOGLOBIN A1C; Future; Expected date: 05/09/2024 - COMPREHENSIVE METABOLIC PANEL; Future; Expected date: 05/09/2024 Constipation, unspecified constipation type Gastroesophageal reflux disease without esophagitis Gastroparesis -continue current gi meds. Call for new or worsening symptoms. Follow Up: Return in about 3 months (around 08/09/2024) for recheck. | For: recheck 36 min with pt and chart review. Velasquez Valencia MD * Garret eWbster MED ASSIST - 05/09/2024 12:42 PM EDT . documented in this encounter Nursing Notes * Garret Webster MED ASSIST - 05/09/2024 12:44 PM EDT The patient has been properly identified by confirmation of name and date of . Chief Complaint Patient presents with Follow Up Patient is here today for follow up visit Patient states no concerns documented in this encounter Plan of Treatment Upcoming Encounters Date Type Department Care Team (Latest Contact Info) Description 07/18/2024 10:30 AM EDT Office Visit [address] [address] [facility] [address] [place] [address] 08/02/2024 11:06 AM EDT Hospital Encounter OR [facility], Operating Room, [facility] - 4th Floor [address] [place] [address] Belen Jones, DO [address] [place] [address] 08/02/2024 11:06 AM EDT - 08/02/2024 11:50 AM EDT Surgery OR [facility], Operating Room, [facility] - 4th Floor [address] [place] [address] Belen Jones, DO [address] [place] [address] ESOPHAGOGASTRODUODENOSCOPY (EGD), FLEXIBLE, TRANSORAL, ENDOSCOPIC ULTRASOUND 08/18/2024 11:00 AM EDT Office Visit [facility] [address] [place] [facility] [place] [address] Velasquez Valencia MD [address] [place] [address] Scheduled Procedures Name Priority Associated Diagnoses Date/Ti [...] this encounter Medical Devices Implanted Type Area Senior Structural Engineer Device Identifier Shelf Expiration Date Model / Serial / Lot Suture [employer] Dbl Load 4.75mm - [id number] Implanted:Qty: 1 on 12/01/2019 by Judith Condon, at OR [facility] Right: Shoulder [employer] 07/17/2021 AR-2324BCT -2 / / [id number] Suture [employer] Dbl Load 5.5mm - [id number] Implanted:Qty: 1 on 12/01/2019 by Judith Condon DO at OR [facility] Right: Shoulder [employer] 09/16/2021 AR-2323BCT -2 / / [id number] documented as of this encounter Results * (ABNORMAL) COMPREHENSIVE METABOLIC PANEL (05/09/2024 1:59 PM EDT) BUN 23(H) 6 - 20 mg/dL 05/10/2024 12:06 AM EDT [facility] Creatinine 1.0 0.6 - 1.2 mg/dL 05/10/2024 12:06 AM EDT [facility] Estimated Glomerular Filtration Rate >90 >=60 mL/min 05/10/2024 12:06 AM EDT [facility] Comment:eGFR is calculated b ased on the CKD-EPI 2020 equation. Sodium 138 135 - 146 mmol/L 05/10/2024 12:06 AM EDT [facility] Potassium 4.8 3.5 - 5.1 mmol/L 05/10/2024 12:06 AM EDT [facility] Chloride 100 98 - 107 mmol/L 05/10/2024 12:06 AM EDT [facility] CO2 26 22 - 32 mmol/L 05/10/2024 12:06 AM EDT [facility] Anion Gap 12 7 - 15 mmol/L 05/10/2024 12:06 AM EDT [facility] Glucose 182(H) 70 - 120 mg/dL 05/10/2024 12:06 AM EDT [facility] Albumin 4.2 3.8 - 5.0 g/dL 05/10/2024 12:06 AM EDT [facility] AST 12 10 - 50 U/L 05/10/2024 12:06 AM EDT [facility] Alkaline Phosphatase 86 35 - 130 U/L 05/10/2024 12:06 AM EDT [facility] Bilirubin, Total <0.2 <=1.2 mg/dL 05/10/2024 12:06 AM EDT [facility] Calcium 9.7 8.4 - 10.2 mg/dL 05/10/2024 12:06 AM EDT [facility] Protein 6.7 6.0 - 8.3 g/dL 05/10/2024 12:06 AM EDT [facility] ALT 18 10 - 50 U/L 05/10/2024 12:06 AM EDT [facility] Blood Venous blood specimen / Unknown Venipuncture / Unknown 05/09/2024 1:59 PM EDT 05/09/2024 1:59 PM EDT Velasquez Valencia MD LAB BLOOD ORDERABL ES Performing Organization Address [facility] de Phone Number LABORATORY [facility] [address] [place] [address] * (ABNORMAL) HEMOGLOBIN A1C (05/09/2024 1:59 PM EDT) [facility] [address] Hemoglobin A1C 8.6(H) 4.0 - 5.6 % 05/10/2024 12:31 AM EDT [facility] Comment:The use of HbA1c to monitor glycemic status is based on normal hemoglobin and HbA composition. This test should not be used in patients with abnormal hemoglobin that affects the half life of the red blood cell or the in vivo glycation rates. Estimated Average Glucose 200(H) <126 mg/dL 05/10/2024 12:31 AM EDT [facility] Blood Venous blood specimen / Unknown Venipuncture / Unknown 05/09/2024 1:59 PM EDT 05/09/2024 1:59 PM EDT Velasquez Valencia MD LAB BLOOD ORDERABL ES Performing Organization Address [facility] de Phone Number LABORATORY [facility] [address] [place] [address] documented in this encounter Visit Diagnoses Diagnosis Hx of BKA, left (HCC)- Primary Status post bilateral below knee amputation (HCC) Lower limb amputation, below knee Type 2 diabetes mellitus with hemoglobin A1c goal of less than 7.0% (HCC) Constipation, unspecified constipation type Gastroesophageal reflux disease without esophagitis Esophageal reflux Gastroparesis Acute pancreatitis documented in this encounter Advance [...] Directives occurred with: Not Discussed Care Teams Plow Holder Relationship Specialty Start Date End Date Velasquez Valencia MD [address] [facility] [place] [address] PCP - General Family Medicine 09/09/22 documented as of this encounter
--- OUTSIDE RECORDS SUMMARY | 2024-07-14 04:40 | External Medical Summary | Summary of Care ---
Author Name Unknown Organization [facility] Address [address] [facility] [place] [address] Phone [phone] Care Team Providers Care Fire Prevention Research Engineer Name Role Phone Velasquez Valencia MD Primary Care Provider +1- [phone] Encounter Details Date Type Department Care Team (Late st Contact Info) Description 05/23/2024 Telephone [facility] [address] [place] [address] Velasquez Valencia MD [address] [place] [address] Allergies Active Allergy Reactions Criticality [...] of less than 7.0% ([facility]) Inject 40 units twice daily- this replaces lantus 54 mL 4 01/19/2024 Active BD Pen Needle Short U/F 31G X 8 MM (Insulin Pen Needle)Indications :Type 2 diabetes mellitus with hemoglobin A1c goal of less than 7.0% ([facility]) Use to inject insulin 5 [...] over 140 [see chart at bottom of [facility] visit 05/09/24], Reported on 05/09/2024 Pioglitazone [...] EVERY 12 HOURS 120 Capsule 05/04/2024 Active Archetype PartnersTouch Verio In Vitro Strip (Glucose Blood)Indications: Type 2 diabetes mellitus with hemoglobin A1c goal of less than 7.0% ([facility]) Use to check blood sugar once daily as needed 100 Strip 05/09/2024 Active Archetype PartnersTouch Delica Lancets 33GIndications:Typ e 2 diabetes mellitus [...] mellitus 03/02/2021 07/04/2021 Intellectual disability 10/25/[address] 03/2022 Obesity, Class II, BMI 35-39 .9, isolated [...] IM 11/04/2009 Pneumococcal Conjugate Vacci ne, 20-valent ([id number]) 07/09/2023 Pneumococcal Polysaccharide PPV23 (Pneumovax) 11/03/2015,02/09/2006 Seasonal [...] Average Number of Drinks Not on file 08/07/2 019 Frequency of Binge Drinking Not on [...] encounter Miscellaneous Notes * Telephone Encounter - Garret Webster MED ASSIST - 05/23/2024 10:59 AM EDT Received fax from [facility], stating prescription needed: first prothesis and necessary supplies. Below is an explanation od the K levels as well as general summary that you can use to guide documentation documented in this encounter Plan of Treatment Upcoming Encounters Date Type Department Care Team (Latest Contact Info) Description 07/18/2024 10:30 AM EDT Office Visit Pharmacy, [address] [address] [place] [facility] [address] [place] [address] 08/02/2024 11:06 AM EDT Hospital Encounter OR [facility], [facility], [facility] [address] [facility] [place] [id number] Belen Jones, DO [address] [place] [address] 08/02/2024 11:06 AM EDT - 08/02/2024 11:50 AM EDT Surgery [facility], Operating Room, [facility] - 4[facility] [address] [place] [address] Belen Jones, [address] [place] [address] ESOPHAGOGASTRODUODENOSCOPY (EGD), FLEXIBLE, TRANSORAL, ENDOSCOPIC ULTRASOUND 08/18/2024 11:00 AM EDT [facility] [address] [facility] [id number] [facility]asquez Valencia [facility] [address] [facility] [id number] Scheduled Procedures Name Priority Associated Diagnoses Date/Ti [...] this encounter Medical Devices Implanted Type Area Automatic Maintainer Device Identifier Shelf Expiration Date Model / Serial / Lot Suture [place] Dbl Load 4.75mm - [id number] Implanted:Qty: 1 on 12/01/2019 by Judith Condon DO at OR [facility] Right: Shoulder [employer] 07/17/2021 AR-2324BCT -2 / / [id number] Suture [place] Dbl Load 5.5mm - [id number] Implanted:Qty: 1 on 12/01/2019 by Judith Condon DO at OR [facility] Right: Shoulder [employer] 09/16/2021 AR-2323BCT -2 / / [id number] documented as of this encounter Advance Directives [...] Directives occurred with: Not Discussed Care Teams Fire Prevention Research Engineer Relationship Specialty Start Date End Date Velasquez Valencia MD [address] [place] [address] PCP - General Family Medicine 09/09/22 documented as of this encounter
--- OUTSIDE RECORDS SUMMARY | 2024-07-14 04:40 | External Medical Summary | Summary of Care ---
Author Name Unknown Organization [facility] Address [address] [place] [facility] [place] [address] Phone [phone] Care Team Providers Care Mattress And Boxsprings Supervisor Name Role Phone Tati Polo MD Primary Care Provider +1- [phone] Encounter Details Date Type Department Care Team (Late st Contact Info) Description 05/23/2024 Telephone [facility] [address] [place] [address] Tati Polo MD [address] [place] [address] Allergies Active Allergy Reactions Criticality [...] than 7.0% ([facility]) Take 2 Tablets by mouth in the [...] than 7.0% ([facility]) Inject 40 units twice daily- this replaces lantus 54 mL 4 4 Active BD Pen Needle Short U/F 31G X 8 MM (Insulin Pen Needle)Indication s:Type 2 diabetes mellitus with hemoglobin A1c goal of less than 7.0% ([facility]) Use to inject insulin 5 times daily [...] than 7.0% ([facility]) Use to check blood sugar once daily as needed 100 Strip 4 Active OneTouch Delica Lancets 33GIndications:Ty pe 2 diabetes mellitus with hemoglobin A1c goal of less than 7.0% ([facility]) Use to check blood sugars once daily [...] mRNA, LNP-s, No Pre serve, 2-Dose Series (H[employer]Art) 10/21/2021,03/01/2021,02/07/2021 H1N1 2009 Influenza, IM 11/04/2009 Pneumococcal Conjugate Vacci ne, 20-valent ([id number]) 07/09/2023 Pneumococcal Polysaccharide PPV23 (Pneumovax) 11/03/2015,02/09/2006 Seasonal [...] encounter Miscellaneous Notes * Addendum Note - Tati Polo MD - 05/24/2024 12:07 PM EDTAddended by: TATI POLO on: 05/24/2024 12:07 PM Modules accepted: Orders * Telephone Encounter - Tati Polo MD - 05/24/2024 12:05 PM EDT DME for the order needed entered. Please print it and the note from 05/09/24 and fax to [facility]. [phone] * Telephone Encounter - Garret Webster MED ASSIST - 05/23/2024 10:59 AM EDT Received fax from the [facility], stating prescription needed: first prothesis and necessary supplies. Below is an explanation od the K levels as well as general summary that you can use to guide documentation documented in this encounter Plan of Treatment Upcoming Encounters Date Type Department Care Team (Latest Contact Info) Description 07/18/2024 10:30 AM EDT Office Visit Pharmacy, [place] [address] [place] [address] [facility] [address] [place] [address] 08/02/2024 11:06 AM EDT Hospital Encounter OR [facility], Operating Room, [facility] - 4th Floor [address] [place] [address] Belen Jones, DO [address] [place] [address] 08/02/2024 11:06 AM EDT - 08/02/2024 11:50 AM EDT Surgery OR [facility], Operating Room, [facility] - [facility] Floor [address] [place] [address] Belen Jones, DO [address] [place] [address] ESOPHAGOGASTRODUODENOSCOPY (EGD), FLEXIBLE, TRANSORAL, ENDOSCOPIC ULTRASOUND 08/18/2024 11:00 AM EDT Office Visit [facility] [address] [facility] [phone] Tati Polo MD [address] [facility] [address] Scheduled Procedures Name Priority Associated Diagnoses Date/Ti [...] this encounter Medical Devices Implanted Type Area Flight Attendant/Inflight Manager Device Identifier Shelf Expiration Date Model / Serial / Lot Suture [place] Dbl Load 4.75mm - [id number] Implanted:Qty: 1 on 12/01/2019 by Judith Condon DO at OR [facility] Right: Shoulder [employer] 07/17/2021 AR-2324BCT -2 / / [id number] Suture [place] Dbl Load 5.5mm - [id number] Implanted:Qty: 1 on 12/01/2019 by Judith Condon DO at OR [facility] Right: Shoulder [employer] 09/16/2021 AR-2323BCT -2 / / [id number] documented as of this encounter Visit Diagnoses [...] Directives occurred with: Not Discussed Care Teams Mattress And Boxsprings Supervisor Relationship Specialty Start Date End Date Tati Polo MD [address] [facility] [place] [address] PCP - General Family Medicine 09/09/22 documented as of this encounter
--- OUTSIDE RECORDS SUMMARY | 2024-07-14 04:40 | External Medical Summary | Summary of Care ---
Author Name Unknown Organization [facility] [address] [facility] [address] Phone [phone] Care Team Providers Care Tempering Kiln Tender Name Role Phone Velasquez Valencia MD Primary Care Provider +1- [phone] Reason for Visit * Reason Onset Date Comments Advice 05/12/2024 Encounter Details Date Type Department Care Team (Late st Contact Info) Description 05/12/2024 Telephone [facility] [address] [place] [address] Velasquez Valencia MD [address] [place] [address] Advice Allergies Active Allergy Reactions [...] less than 7.0% ([facility]) Inject 40 units twice [...] IM 11/04/2009 Pneumococcal Conjugate Vacci ne, 20-valent ([id number]) 07/09/2023 Pneumococcal Polysaccharide PPV23 (Pneumovax) 11/03/2015,02/09/2006 Seasonal [...] Encounter - Mel Walker LPN - 05/15/2024 12:26 PM EDT Ni called back again stating [facility] states they still did not receive the order, I advised her sometimes it can take a little bit for the fax to go through to check with them in a couple hours andcall back and let us know if they still have not received it. * Telephone Encounter - Sumaya Jiménez OSA - 05/15/2024 12:24 PM EDT Reason for patient's call: speak to kana Caller was transferred to at the clinic. [...] she is requesting order be faxed to [facility] [place]. Order faxed per her request * Telephone Encounter - Mallorie Baldwin OSA - 05/15/2024 11:59 AM EDT Reason for patient's call: Wheelchair industrial order clerk was transferred to Kana at the nurse line. * Telephone Encounter [...] with More padding. * Telephone Encounter - Rhae Kruger LPN - 05/12/2024 9:27 AM EDT Patient aware and verbalized understanding [facility] The order needs to indicate he is over 300lb. I added this to order. Order pending * Telephone Encounter - FacerGarret MED ASSIST - 05/12/2024 9:00 AM EDT Attempted to contact patient, asked where he would like DME sent Patient states he would like a new wheelchair due to his one falling apart. Please advise to TE documented in this encounter Plan of Treatment Upcoming Encounters Date Type Department Care Team (Latest Contact Info) Description 07/18/2024 10:30 AM EDT [facility] [place] [address] [facility] [address] [place] [facility] [address] [place] [address] 08/02/2024 11:06 AM EDT Hospital Encounter OR [facility], Operating Room, [facility] - 4th Floor [address] [place] [address] Belen Jones, DO [address] [place] [address] 08/02/2024 11:06 AM EDT - 08/02/2024 11:50 AM EDT Surgery OR [facility], Operating Room, [facility] - 4th Floor [address] [place] [address] Belen Jones, DO [address] [place] [address] ESOPHAGOGASTRODUODENOSCOPY (EGD), FLEXIBLE, TRANSORAL, ENDOSCOPIC ULTRASOUND 08/18/2024 11:00 AM EDT Office Visit [facility] [address] [phone] Velasquez Valencia MD [address] [facility] [place] [address] Scheduled Procedures Name Priority Associated Diagnoses Date/Ti [...] this encounter Medical Devices Implanted Type Area Pilot Captain Device Identifier Shelf Expiration Date Model / Serial / Lot Suture [place] Dbl Load 4.75mm - [id number] Implanted:Qty: 1 on 12/01/2019 by Judith Condon DO at OR [facility] Right: Shoulder [employer] 07/17/2021 AR-2324BCT -2 / / [id number] Suture [place] Dbl Load 5.5mm - [id number] Implanted:Qty: 1 on 12/01/2019 by Judith Condon DO at OR [facility] Right: Shoulder [employer] 09/16/2021 AR-2323BCT -2 / / [id number] documented as of this encounter Visit Diagnoses [...] Directives occurred with: Not Discussed Care Teams Tempering Kiln Tender Relationship Specialty Start Date End Date Velasquez Valencia MD [address] [place] [address] PCP - General Family Medicine 09/09/22 documented as of this encounter
--- OUTSIDE RECORDS SUMMARY | 2024-07-14 04:40 | External Medical Summary | Summary of Care ---
Author Name Unknown Organization [facility] [address] [facility] [address] Phone [phone] Care Team Providers Care Pad Machine Offbearer Name Role Phone Velasquez Valencia MD Primary Care Provider +1- [phone] Reason for Visit * Reason Onset Date Comments Order Request 05/18/2024 Encounter Details Date Type Department Care Team (Late st Contact Info) Description 05/18/2024 Telephone [facility] [address] [place] [address] Velasquez Valencia MD [address] [place] [address] Order Request Allergies Active Allergy Reactions Criticality Noted [...] goal of less than 7.0% ([facility]) Inject 40 units twice daily- [...] goal of less than 7.0% ([facility]) Use to check blood sugar once daily as needed 100 Strip 4 Active OneTouch Delica Lancets 33GIndications:Ty pe 2 diabetes mellitus with hemoglobin A1c goal of less than 7.0% ([facility]) Use to check blood sugars [...] mRNA, LNP-s, No Pre serve, 2-Dose Series (Fiiiling) 10/21/2021,03/01/2021,02/07/2021 H1N1 2009 Influenza, IM 11/04/2009 Pneumococcal Conjugate Vacci ne, 20-valent ([id number]) 07/09/2023 Pneumococcal Polysaccharide PPV23 (Pneumovax) 11/03/2015,02/09/2006 Seasonal [...] Telephone Encounter - Velasquez Valencia MD - 05/24/2024 11:53 AM EDT Noted - see separate encounter. * Telephone Encounter - Mel Walker LPN - 05/22/2024 9:25 AM EDT Called and spoke with patient and he states he is no longer seeing the vascular surgeon, he states he last saw them on 05/08/2024 when they took his stiches out. Patient states he has a form that explains what the [facility] needs that he will be dropping off. The phone number for the [facility] is [phone] * Telephone Encounter - Velasquez Valencia MD - 05/19/2024 1:56 PM EDT Please see if pt is still seeing the vascular surgeon that operated on him. Please also see if we can get a number for someone for me to contact at the [facility]. * Telephone Encounter - Elaina Suh OSA - 05/18/2024 1:12 PM EDT An order was requested for this patient. Name of Requesting Provider: Patient Order Requested: Patient states that the [facility] needs a prescription that he is ready for the prosthesis. Diagnosis/Reason for Request: Patient states that he was told by [facility] that the order is needed for them to decide is if he is ready for the prosthesis. If order request is for Mammogram: Is the patient having any breast symptoms? N/A Is there a chance of ? N/A Has the patient had any breast problems in the past? NA What location AND department does the patient wish to have their order completed at? The [facility] Fax Number, if applicable: If the caller is not a current patient, please advise the patient to call their current PCP to havethe order's prior to being seen in our office. The patient was informed that our providers would not order anything (medication, labs, etc.) prior to being seen. documented in this encounter Plan of Treatment Upcoming Encounters Date Type Department Care Team (Latest Contact Info) Description 07/18/2024 10:30 AM EDT Office Visit Pharmacy, [address] [address] [place], [facility] [address] [place] [address] 08/02/2024 11:06 AM EDT Hospital Encounter [facility], Operating Room, [facility] - 4th Floor [address] [place] [address] Belen Jones, DO [address] [place] [address] 08/02/2024 11:06 AM EDT - 08/02/2024 11:50 AM EDT Surgery OR [facility], Operating Room, [facility] - 4th Floor [address] [place] [address] Belen Jones, DO [address] [place] [address] ESOPHAGOGASTRODUODENOSCOPY (EGD), FLEXIBLE, TRANSORAL, ENDOSCOPIC ULTRASOUND 08/18/2024 11:00 AM EDT Office Visit [facility] [address] [place] [phone] Velasquez Valencia MD [address] [place] [address] Scheduled Procedures Name Priority Associated Diagnoses Date/Ti [...] 02/07/2021 DISCUSS TOBACCO CESSATION (REFER TO SMARTSET #2826) 10/16/2023 10/16/2022 Zoster Vaccines (1 of 2) [...] this encounter Medical Devices Implanted Type Area Treadle Cut Off Saw Operator Device Identifier Shelf Expiration Date Model / Serial / Lot Suture [place] Dbl Load 4.75mm - [id number] Implanted:Qty: 1 on 12/01/2019 by Judith Condon, DO at OR [facility] Right: Shoulder [employer] 07/17/2021 AR-2324BCT -2 / / [id number] Suture [place] Dbl Load 5.5mm - [id number] Implanted:Qty: 1 on 12/01/2019 by Judith Condon, DO at OR [facility] Right: Shoulder [employer] 09/16/2021 AR-2323BCT -2 / / [id number] documented as of this encounter Advance Directives [...] Directives occurred with: Not Discussed Care Teams Pad Machine Offbearer Relationship Specialty Start Date End Date Velasquez Valencia MD [address] [place] [address] PCP - General Family Medicine 09/09/22 documented as of this encounter
--- OUTSIDE RECORDS SUMMARY | 2024-07-14 04:40 | External Medical Summary | Summary of Care ---
Author Name Unknown Organization [facility] Address [address] [place] [address] Phone [phone] Care Team Providers Care Eeo Officer Name Role Phone Velasquez Valencia MD Primary Care Provider +1- [phone] Encounter Details Date Type Department Care Team (Late st Contact Info) Description 05/17/2024 10:15 AM EDT Scheduled Telephone Care Coordination and Integration [address] [place], [place] [phone] Laura Gonzales [facility] Filter Worker [address] [place], [place] [phone] Allergies Active Allergy Reactions Criticality Noted Date Comments Cefaclor Unknown 07/26/2018 As child Empagliflozin Other (Please comment) 05/16/2021 DKA with hospitalization Nsaids High 04/19/2019 Gastric problems Other Reaction(s): gastroparesis, kidney problems, use with caution : hx esophagus damage documented as of this encounter (statuses as of 05/17/2024) Medications Medication Sig Dispensed Refills Start Date [...] goal of less than 7.0% ([facility]) Take 2 Tablets by mouth in [...] goal of less than 7.0% ([facility]) Inject 40 units twice daily- this replaces lantus 54 mL 4 01/19/2024 Active BD Pen Needle Short U/F 31G X 8 MM (Insulin Pen Needle)Indications :Type 2 diabetes mellitus with hemoglobin A1c goal of less than 7.0% ([facility]) Use to inject insulin 5 times daily [...] 140 [see chart at bottom of [facility] visit 05/09/24], Reported on 05/09/2024 [...] goal of less than 7.0% ([facility]) Use to check blood sugar once daily as needed 100 Strip 05/09/2024 Active STEGOSYSTEMSTouch Delica Lancets 33GIndications:Typ e 2 diabetes mellitus with hemoglobin A1c goal of less than 7.0% ([facility]) Use to check blood sugars once daily as needed 100 Each 05/09/2024 Active documented as of this encounter (statuses as of 05/17/2024) Active Problems Problem Noted Date Diagnosed Date [...] as of this encounter (statuses as of 05/17/2024) Resolved Problems Problem Noted Date Diagnosed Date [...] as of this encounter (statuses as of 05/17/2024) Immunizations Name Administration Dates Next Due COVID-19 mRNA, LNP-s, No Pre serve, 2-Dose Series (Pfizer) 10/21/2021,03/01/2021,02/07/2021 H1N1 2009 Influenza, IM 11/04/2009 Pneumococcal Conjugate Vacci ne, 20-valent (Eosoomg23) 07/09/2023 Pneumococcal Polysaccharide PPV23 (Pneumovax) 11/03/2015,02/09/2006 Seasonal [...] as of this encounter Progress Notes * Laura Gonzales [facility] Filter Worker - 05/17/2024 10:14 AM EDT Telemedicine visit: No Community [facility] Filter Worker ([facility]) documentation: CHW rola call per Nu Barrera RN No answer, left requesting call back to documented in this encounter Plan of Treatment Upcoming Encounters Date Type Department Care Team (Latest Contact Info) Description 07/18/2024 10:30 AM EDT [facility] [place] [address] [facility] [address] [facility] [address] [facility] [address] 08/02/2024 11:06 AM EDT Hospital Encounter OR [facility], Operating Room, [facility] - 4th Floor [address] [place] [address] Belen Jones DO [address] [place] [address] 08/02/2024 11:06 AM EDT - 08/02/2024 11:50 AM EDT Surgery OR [facility], Operating Room, [facility] - 4th Floor [address] [place] [address] Belen Jones, [address] [place] [address] ESOPHAGOGASTRODUODENOSCOPY (EGD), FLEXIBLE, TRANSORAL, ENDOSCOPIC ULTRASOUND 08/18/2024 11:00 AM EDT Office Visit [facility] [address] [facility] [phone] Velasquez Valencia MD [address] [facility] [place] [phone] Scheduled Procedures Name Priority Associated Diagnoses Date/Ti [...] this encounter Medical Devices Implanted Type Area Contract Clerk Automobile Device Identifier Shelf Expiration Date Model / Serial / Lot Suture [place] Dbl Load 4.75mm - [id number] Implanted:Qty: 1 on 12/01/2019 by Judith Condon, DO at OR [facility] Right: Shoulder [employer] 07/17/2021 AR-2324BCT -2 / / [id number] Suture [place] Dbl Load 5.5mm - [id number] Implanted:Qty: 1 on 12/01/2019 by Judith Condon, at OR [facility] Right: Shoulder [employer] 09/16/2021 AR-2323BCT -2 / / [id number] documented as of this encounter Advance Directives [...] Directives occurred with: Not Discussed Care Teams Eeo Officer Relationship Specialty Start Date End Date Velasquez Valencia MD [address] [place] [address] PCP - General Family Medicine 09/09/22 documented as of this encounter
--- OUTSIDE RECORDS SUMMARY | 2024-07-14 04:41 | External Medical Summary | Summary of Care ---
Author Name Unknown Organization [facility] Address [address] [facility] [address] Phone [phone] Care Team Providers Care Propellant Charge Zone Assembler Name Role Phone Velasquez Valencia MD Primary Care Provider +1- [phone] Reason for Visit * Reason Onset Date Comments Advice 05/12/2024 Encounter Details Date Type Department Care Team (Late st Contact Info) Description 05/12/2024 Telephone [facility] [address] [place] [address] Velasquez Valencia MD [address] [place] [address] Advice Allergies Active Allergy Reactions [...] goal of less than 7.0% ([facility]) Inject 40 units twice daily- this [...] goal of less than 7.0% ([facility]) Use to check blood sugar once daily as needed 100 Strip 05/09/2024 Active OneTouch Delica Lancets 33GIndications:Typ e 2 diabetes mellitus with hemoglobin A1c goal of less than 7.0% ([facility]) Use to check blood sugars once [...] IM 11/04/2009 Pneumococcal Conjugate Vacci ne, 20-valent ([id number]) 07/09/2023 Pneumococcal Polysaccharide PPV23 (Pneumovax) 11/03/2015,02/09/2006 Seasonal [...] No 04/19/2024 Are you (or your family) ujan eless or worried that you might be [...] she is requesting order be faxed to [facility]. Order faxed per her request * Telephone Encounter - Mallorie Baldwin OSA - 05/15/2024 11:59 AM EDT Reason for patient's call: Wheelchair computerized mill mill recorder was transferred to Kana at the nurse [...] 07/18/2024 10:30 AM EDT Office Visit Pharmacy, [place] [address] [place] [address] [place] [facility] [address] [place] [address] 08/02/2024 11:06 AM EDT Hospital Encounter [facility], [facility], [facility] - 4[facility] [address] [place] [address] Belen Jones, DO [address] [place] [address] 08/02/2024 11:06 AM EDT - 08/02/2024 11:50 AM EDT Surgery OR [facility], Operating Room, [facility] - 4th Floor [address] [place] [address] Belen Jones, DO [address] [place] [address] ESOPHAGOGASTRODUODENOSCOPY (EGD), FLEXIBLE, TRANSORAL, ENDOSCOPIC ULTRASOUND 08/18/2024 11:00 AM EDT Office Visit [facility] [address] [place] [address] Velasquez Valencia MD [address] [place] [address] Scheduled Procedures Name Priority Associated Diagnoses Date/Ti [...] 02/07/2021 DISCUSS TOBACCO CESSATION (REFER TO SMARTSET #1571) 10/16/2023 10/16/2022 Zoster Vaccines (1 of 2) [...] this encounter Medical Devices Implanted Type Area Inspector Coated Fabrics Device Identifier Shelf Expiration Date Model / Serial / Lot Suture [place] Dbl Load 4.75mm - [id number] Implanted:Qty: 1 on 12/01/2019 by Judith Condon DO at OR [facility] Right: Shoulder [employer] 07/17/2021 AR-2324BCT -2 / / [id number] Suture [place] Dbl Load 5.5mm - [id number] Implanted:Qty: 1 on 12/01/2019 by Judith Condon DO at OR [facility] Right: Shoulder [employer] 09/16/2021 AR-2323BCT -2 / / [id number] documented as of this encounter Visit Diagnoses [...] Directives occurred with: Not Discussed Care Teams Propellant Charge Zone Assembler Relationship Specialty Start Date End Date Velasquez Valencia MD [address] [place] [address] PCP - General Family Medicine 09/09/22 documented as of this encounter
--- OUTSIDE RECORDS SUMMARY | 2024-07-14 04:41 | External Medical Summary | Summary of Care ---
Author Name Unknown Organization [facility] Address [address] [place] [facility] [place] [address] Phone [phone] Care Team Providers Care Box Estimator Name Role Phone Velasquez Valencia MD Primary Care Provider +1- [phone] Reason for Visit * Reason Comments eRx-Medication Refill Encounter Details Date Type Department Care Team (Late st Contact Info) Description 05/13/2024 Refill [facility] [address] [place] [address] Velasquez Valencia MD [address] [place] [address] Allergies Active Allergy Reactions Criticality [...] goal of less than 7.0% ([facility]) Take 2 Tablets by mouth [...] goal of less than 7.0% ([facility]) Inject 40 units twice daily- this replaces lantus 54 mL 4 01/19/2024 Active BD Pen Needle Short U/F 31G X 8 MM (Insulin Pen Needle)Indications :Type 2 diabetes mellitus with hemoglobin A1c goal of less than 7.0% ([facility]) Use to inject insulin 5 [...] goal of less than 7.0% ([facility]) Use to check blood sugar once daily as needed 100 Strip 05/09/2024 Active Listen UpTouch Delica Lancets 33GIndications:Typ e 2 diabetes mellitus with hemoglobin A1c goal of less than 7.0% ([facility]) Use to check blood sugars [...] mRNA, LNP-s, No Pre serve, 2-Dose Series ([place]) 10/21/2021,03/01/2021,02/07/2021 H1N1 2009 Influenza, IM 11/04/2009 Pneumococcal Conjugate Vacci ne, 20-valent ([id number]) 07/09/2023 Pneumococcal Polysaccharide PPV23 (Pneumovax) 11/03/2015,02/09/2006 Seasonal [...] Notes * Telephone Encounter - Lisa Holland [facility] - 05/15/2024 5:30 AM EDT Refused Prescriptions: Disp Refills Tamsulosin HCl 0.4 MG Oral Capsule (Flomax)30 Cap*0 Sig: TAKE 1CAPSULE BY MOUTH ONCE DAILYRefused By: LISA HOLLAND for Refusal: Course of treatment complete Docusate Sodium 100 MG Oral Capsule (Colac*60 Cap*0 Sig: TAKE 1 CAPSULE BY MOUTH TWICE DAILY Refused By: LISA HOLLAND for Refusal: Course of treatment complete documented in this encounter Plan of Treatment Upcoming Encounters Date Type Department Care Team (Latest Contact Info) Description 07/18/2024 10:30 AM EDT [facility] [place] [address] [facility] [address] [facility] [address] [facility] [address] 08/02/2024 11:06 AM EDT Hospital Encounter OR [facility], Operating Room, [facility] - 4th Floor [address] [place] [address] Belen Jones, DO [address] [place] [address] 08/02/2024 11:06 AM EDT - 08/02/2024 11:50 AM EDT Surgery OR [facility], Operating Room, [facility] - 4th Floor [address] [place] [address] Belen Jones, DO [address] [place] [address] ESOPHAGOGASTRODUODENOSCOPY (EGD), FLEXIBLE, TRANSORAL, ENDOSCOPIC ULTRASOUND 08/18/2024 11:00 AM EDT Office Visit [facility] [address] [place] [address] Velasquez Valencia MD [address] [place] [address] Scheduled Procedures Name Priority Associated Diagnoses Date/Ti [...] 02/07/2021 DISCUSS TOBACCO CESSATION (REFER TO SMARTSET #2361) 10/16/2023 10/16/2022 Zoster Vaccines (1 of 2) [...] this encounter Medical Devices Implanted Type Area Subscription Agent Device Identifier Shelf Expiration Date Model / Serial / Lot Suture [place] Dbl Load 4.75mm - [id number] Implanted:Qty: 1 on 12/01/2019 by Judith Condon, DO at OR [facility] Right: Shoulder [employer] 07/17/2021 AR-2324BCT -2 / / [id number] Suture [place] Dbl Load 5.5mm - [id number] Implanted:Qty: 1 on 12/01/2019 by Judith Condon, at OR [facility] Right: Shoulder [employer] 09/16/2021 AR-2323BCT -2 / / [id number] documented as of this encounter Advance Directives [...] Directives occurred with: Not Discussed Care Teams Box Estimator Relationship Specialty Start Date End Date Velasquez Valencia MD [address] [place] [address] PCP - General Family Medicine 09/09/22 documented as of this encounter
--- OUTSIDE RECORDS SUMMARY | 2024-07-14 04:41 | External Medical Summary | Summary of Care ---
Author Name Unknown Organization [facility] [address] [facility] [address] Phone [phone] Care Team Providers Care Microsoft Windows Engineer Name Role Phone Velasquez Valencia MD Primary Care Provider +1- [phone] Reason for Visit * Reason Onset Date Comments Advice 05/12/2024 Encounter Details Date Type Department Care Team (Late st Contact Info) Description 05/12/2024 Telephone [facility] [address] [place] [address] Velasquez Valencia MD [address] [place] [address] Advice Allergies Active Allergy Reactions [...] goal of less than 7.0% ([facility]) Inject 40 units twice daily- this [...] goal of less than 7.0% ([facility]) Use to check blood sugar once daily as needed 100 Strip 05/09/2024 Active OneTouch Delica Lancets 33GIndications:Typ e 2 diabetes mellitus with hemoglobin A1c goal of less than 7.0% ([facility]) Use to check blood sugars once [...] IM 11/04/2009 Pneumococcal Conjugate Vacci ne, 20-valent ([id number]) 07/09/2023 Pneumococcal Polysaccharide PPV23 (Pneumovax) 11/03/2015,02/09/2006 Seasonal [...] she is requesting order be faxed to [facility]. Order faxed per her request * Telephone Encounter - Mallorie Baldwin OSA - 05/15/2024 11:59 AM EDT Reason for patient's call: Wheelchair sales order administrator was transferred to Kana at the nurse line. * Telephone Encounter - Velasquez Valnecia MD - 05/12/2024 4:36 PM EDT DME [...] 07/18/2024 10:30 AM EDT Office Visit Pharmacy, [place] [address] [facility] [place] [address] [place] [facility] [address] [place] [facility] [place] [address] 08/02/2024 11:06 AM EDT Hospital Encounter OR [facility], Operating Room, [facility] - 4th Floor [address] [place] [address] Belen Jones, DO [address] [place] [address] 08/02/2024 11:06 AM EDT - 08/02/2024 11:50 AM EDT Surgery OR [facility], Operating Room, [facility] - 4th Floor [address] [place] [address] Belen Jones, DO [address] [place] [address] ESOPHAGOGASTRODUODENOSCOPY (EGD), FLEXIBLE, TRANSORAL, ENDOSCOPIC ULTRASOUND 08/18/2024 11:00 AM EDT Office Visit [facility] [address] [place] [address] Velasquez Valencia MD [address] [place] [address] Scheduled Procedures Name Priority Associated Diagnoses Date/Ti [...] 02/07/2021 DISCUSS TOBACCO CESSATION (REFER TO SMARTSET #1687) 10/16/2023 10/16/2022 Zoster Vaccines (1 of 2) [...] encounter Medical Devices Implanted Type Area Manager Park Device Identifier Shelf Expiration Date Model / Serial / Lot Suture [place] Dbl Load 4.75mm - [id number] Implanted:Qty: 1 on 12/01/2019 by Judith Condon DO at OR [facility] Right: Shoulder [employer] 07/17/2021 AR-2324BCT -2 / / [id number] Suture [place] Dbl Load 5.5mm - [id number] Implanted:Qty: 1 on 12/01/2019 by Judith Condon DO at OR [facility] Right: Shoulder [employer] 09/16/2021 AR-2323BCT -2 / / [id number] documented as of this encounter Visit Diagnoses [...] Directives occurred with: Not Discussed Care Teams Microsoft Windows Engineer Relationship Specialty Start Date End Date Velasquez Valencia MD [address] [place] [address] PCP - General Family Medicine 09/09/22 documented as of this encounter
--- OUTSIDE RECORDS SUMMARY | 2024-07-14 04:42 | External Medical Summary | Summary of Care ---
Author Name Unknown Organization [facility] Address [address] [facility] [address] Phone [phone] Care Team Providers Care Tool Repairer Name Role Phone Velasquez Valencia MD Primary Care Provider +1- [phone] Reason for Visit * Reason Onset Date Comments Med Request 04/26/2024 Order Request 04/26/2024 Fax 04/26/2024 Encounter Details Date Type Department Care Team (Late st Contact Info) Description 04/26/2024 Telephone [facility] [address] [place] [address] Velasquez Valencia MD [address] [place] [address] Med Request; Order Request; Fax Allergies Active Allergy Reactions Criticality Noted Date Comments Cefaclor Unknown 07/26/2018 As child Empagliflozin Other (Please comment) 05/16/2021 DKA with hospitalization Nsaids High 04/19/2019 Gastric problems Other Reaction(s): gastroparesis, kidney problems, use with caution : hx esophagus damage documented as of this encounter (statuses as of 05/10/2024) Medications Medication Sig Dispensed Refills Start Date End Date Status Albuterol Sulfate HFA 108 (90 Base) MCG/ACT Inhalation Aerosol SolutionIndicati ons:RSV bronchitis inhale 2 puffs by mouth and INTO THE LUNGS every 6 hours if needed for cough shortness of breath or WITHDRAWAL SYMPTOMS 54 g 3 01/12/202 3 Active Famotidine 20 MG Oral Tablet (Pepcid) Take 1 Tablet by mouth every night at bedtime. 90 Tablet 3 3 Active metFORMIN HCl 500 MG Oral Tablet (Glucophage)Yanet cations:Type 2 diabetes mellitus with hemoglobin A1c goal of less than 7.0% ([facility]) Take 2 Tablets by mouth in the [...] Oral Tablet Extended Release 24 Hour (toPROL XL)Indications:H TN, goal below 140/90 Take 1 tab by mouth twice per day 180 Tablet 3 4 Active Pantoprazole Sodium 40 MG Oral Tablet Delayed Release (Protonix) TAKE 1 TABLET BY MOUTH TWICE A DAY 180 Tablet 1 4 Active Tosb SolEllear 300 UNIT/ML Subcutaneous Solution Pen-injector (Insulin Glargine (1 Unit Dial))Indication s:Type 2 diabetes mellitus with hemoglobin A1c goal of less than 7.0% ([facility]) Inject 40 units twice daily- this replaces lantus 54 mL 4 4 Active BD Pen Needle Short U/F 31G X 8 MM (Insulin Pen Needle)Indicatio ns:Type 2 diabetes [...] over 140 [see chart at bottom of [facility] visit 05/09/24], Reported on 05/09/2024 Pioglitazone HCl 45 MG Oral Tablet (Actos)Indicatio ns:Type 2 diabetes mellitus with hemoglobin A1c goal of less than 7.0% (HCC) Take 1 Tablet by mouth in the morning. Please fill in about a month- patient is going to be using up his current supply of 15 mg and 30 mg tablets. 90 Tablet 4 4 Active traMADol HCl 50 MG Oral Tablet (Ultram)Indicati ons:Abdominal pain, epigastric Take 1 Tablet by mouth every 6 hours as needed for Pain, Severe. 40 Tablet 4 Active hydroCHLOROthiaz silverio 25 MG Oral Tablet (Hydrodiuril) Take 1 [...] Active traMADol HCl 50 MG Oral Tablet (Ultram)Indicati ons:Abdominal pain, generalized,Thurman adrianna limb pain (HCC) Take 1 Tablet by mouth every 6 hours as needed for Pain, Severe. Take 1-2 tabs by mouth every 6 hours as needed for severe pain in want to do it due 8 it has been 80 Tablet 4 Active Alum & Mag Hydroxide-Simeth 400-400-40 MG/5ML Oral Suspension (Mi-Acid II)Indications:C onstipation, unspecified constipation type Take 15 ml every [...] in the morning. 90 Tablet 3 3 04/28/20 24 Discontinued(Re fill) Movantik 25 MG Oral Tablet (Naloxegol Oxalate) take 1 tablet by mouth in the morning 30 Tablet 4 04/27/20 24 Discontinued Gabapentin 100 MG Oral Capsule (Neurontin)Indic ations:Neuropath y TAKE ONE CAPSULE BY MOUTH IN THE MORNING AND TWO CAPSULES AT BEDTIME 270 Capsule 1 4 05/04/20 24 Discontinued documented as of this encounter (statuses as of 05/10/2024) Active Problems Problem Noted Date Diagnosed Date [...] as of this encounter (statuses as of 05/10/2024) Resolved Problems Problem Noted Date Diagnosed Date [...] as of this encounter (statuses as of 05/10/2024) Immunizations Name Administration Dates Next Due COVID-19 mRNA, LNP-s, No Pre serve, 2-Dose Series (Pfizer) 10/21/2021,03/01/2021,02/07/2021 H1N1 2009 Influenza, IM 11/04/2009 Pneumococcal Conjugate Vacci ne, 20-valent ([id number]) 07/09/2023 Pneumococcal Polysaccharide PPV23 (Pneumovax) 11/03/2015,02/09/2006 Seasonal [...] encounter Miscellaneous Notes * Telephone Encounter - Marian Oakes OSA - 05/10/2024 10:28 AM EDT Caller requesting the following information to be faxed: Name/Company of caller: Patient Information requested to be faxed: wheelchair order Fax number: Attention to Name/Company: [employer] Any additional information?: Faxed. * Telephone Encounter - Madison Azul LPN - 04/28/2024 11:00 AM EDT Pt's EC Ni is calling. Is not calling about medication. See 04/25/24 order request encounter. * Telephone Encounter - Alyssa Engel OSA - 04/28/2024 10:56 AM EDT Pt's girlfriend is calling to speak with a nurse, She would not give me any information. * Telephone Encounter - Velasquez Valencia MD - 04/26/2024 4:01 PM EDT None of these are on the discharge summary from recent admission (04/10/24 - 04/13/24 at [facility]). I don't think that he is on them. Please check with pt. * Telephone Encounter - Gila Rothman PHARM Tech - 04/26/2024 1:58 PM EDT [facility] calling requesting the following medication below that is listed as "Historical". The following information was provided: Medication Name: Nifedipine Strength: 10 MG Directions: Take 1 TAB by mouth 3 times daily Preferred Quantity: 270 TAB Previous Prescriber: Dr Ana LARRY [facility] Preferred Pharmacy: [id number] [address] Medication Name: Magnesium Oxide Strength: 400 MG Directions: Take 1 TAB by mouth at bedtime Preferred Quantity: 90 TAB Previous Prescriber: Dr Ana LARRY [facility] Preferred Pharmacy: [id number] Medication Name: Colace Strength: 100 MG Directions: Take 1 CAP by mouth twice daily Preferred Quantity: 90 CAP Previous Prescriber: Dr Ana LARRY [facility] Preferred Pharmacy: [id number] [address] Medication Name: Tamsulosin Strength: 0.4 MG Directions: Take 1 CAP by mouth daily Preferred Quantity: 90 CAP Previous Prescriber: Dr Perez [facility] Preferred Pharmacy: [id number] Please review and approve if appropriate. Thank you, Gila Rothman CPhT [employer], Certified Centralized Clinical Pharmacy Services (CCPS) 04/26/2024,2:02 PM documented in this encounter Plan of Treatment Upcoming Encounters Date Type Department Care Team (Latest Contact Info) Description 07/18/2024 10:30 AM EDT [facility] [place] [address] [facility] [address] [place] [facility] [place] [address] 08/02/2024 11:06 AM EDT Hospital Encounter OR [facility], Operating Room, [facility] - 4th Floor [address] [place] [place] [address] Belen Jones, DO [address] [place] [address] 08/02/2024 11:06 AM EDT - 08/02/2024 11:50 AM EDT Surgery OR [facility], Operating Room, [facility] - 4th Floor [address] [place] [address] Belen Jones, DO [address] [place] [address] ESOPHAGOGASTRODUODENOSCOPY (EGD), FLEXIBLE, TRANSORAL, ENDOSCOPIC ULTRASOUND 08/18/2024 11:00 AM EDT Office Visit [facility] [address] [place] [facility] [place] [address] Velasquez Valencia MD [address] [place] [address] Scheduled Procedures Name Priority Associated Diagnoses Date/Ti [...] 02/07/2021 DISCUSS TOBACCO CESSATION (REFER TO SMARTSET #8691) 10/16/2023 10/16/2022 Zoster Vaccines (1 of 2) [...] this encounter Medical Devices Implanted Type Area Border Machine Operator Device Identifier Shelf Expiration Date Model / Serial / Lot Suture [place] Dbl Load 4.75mm - [id number] Implanted:Qty: 1 on 12/01/2019 by Judith Condon DO at OR [facility] Right: Shoulder [employer] 07/17/2021 AR-2324BCT -2 / / [id number] Suture [place] Dbl Load 5.5mm - [id number] Implanted:Qty: 1 on 12/01/2019 by Judith Condon DO at OR [facility] Right: Shoulder [employer] 09/16/2021 AR-2323BCT -2 / / [id number] documented as of this encounter Advance Directives [...] Directives occurred with: Not Discussed Care Teams Tool Repairer Relationship Specialty Start Date End Date Velasquez Valencia MD [address] [place] [address] PCP - General Family Medicine 09/09/22 documented as of this encounter
--- OUTSIDE RECORDS SUMMARY | 2024-07-14 04:42 | External Medical Summary | Summary of Care ---
Author Name Unknown Organization [facility] Address [address] [place] [address] Phone [phone] Care Team Providers Care Director Clinical Operations Name Role Phone Velasquez Valencia MD Primary Care Provider +1- [phone] Reason for Visit * Reason Comments Outpatient Testing Encounter Details Date Type Department Care Team (Late st Contact Info) Description 05/09/2024 1:50 PM EDT Laboratory Laboratory, [place] [address] [place] [address] [place] Laboratory [address] [place] [address] Type 2 diabetes mellitus with hemoglobin A1c goal of less than 7.0% ([facility]); Status post bilateral below knee amputation (HCC) Allergies Active Allergy Reactions Criticality Noted Date Comments Cefaclor Unknown 07/26/2018 As child Empagliflozin Other (Please comment) 05/16/2021 DKA with hospitalization Nsaids High 04/19/2019 Gastric problems Other Reaction(s): gastroparesis, kidney problems, use with caution : hx esophagus damage documented as of this encounter (statuses as of 05/09/2024) Medications Medication Sig Dispensed Refills Start Date [...] A DAY 180 Tablet 1 01/08/2024 Active Timmy Resendez 300 UNIT/ML Subcutaneous Solution Pen-injector (Insulin Glargine [...] 115 units 120 mL 4 02/16/2024 Active Pioglitazone HCl 45 MG Oral Tablet (Actos)Indications [...] EVERY 12 HOURS 120 Capsule 05/04/2024 Active documented as of this encounter (statuses as of 05/09/2024) Active Problems Problem Noted Date Diagnosed Date [...] as of this encounter (statuses as of 05/09/2024) Resolved Problems Problem Noted Date Diagnosed Date [...] as of this encounter (statuses as of 05/09/2024) Immunizations Name Administration Dates Next Due COVID-19 mRNA, LNP-s, No Pre serve, 2-Dose Series (Pfizer) 10/21/2021,03/01/2021,02/07/2021 H1N1 2009 Influenza, IM 11/04/2009 Pneumococcal Conjugate Vacci ne, 20-valent ([id number]) 07/09/2023 Pneumococcal Polysaccharide PPV23 (Pneumovax) 11/03/2015,02/09/2006 Seasonal [...] No 04/19/2024 Does the household have a [facility] source of income? (Household - for ages [...] Department Care Team (Latest Contact Info) Description 05/09/2024 2:30 PM EDT Office Visit Pharmacy, [place] [address] [place] [address] [facility] [address] [place] [address] Arrived 08/02/2024 11:06 AM EDT Hospital Encounter OR [facility], Operating Room, [facility] - 4th Floor [address] [place] [address] Belen Jones, DO [address] [place] [address] 08/02/2024 11:06 AM EDT - 08/02/2024 11:50 AM EDT Surgery OR [facility], Operating Room, [facility] - 4th Floor [address] [facility] [place] [address] Belen Jones, DO [address] [place] [address] ESOPHAGOGASTRODUODENOSCOPY (EGD), FLEXIBLE, TRANSORAL, ENDOSCOPIC ULTRASOUND 08/18/2024 11:00 AM EDT Office Visit [facility] [address] [facility] [place] [address] Velasquez Valencia MD [address] [facility] [place] [address] Pending Results Name Type Priority Associated Diagnoses Date /Time HEMOGLOBIN A1C Lab Routine Type 2 diabetes mellitus with hemoglobin A1c goal of less than 7.0% ([facility]) 05/09/2024 1:59 PM EDT COMPREHENSIVE METABOLIC PANEL Lab Routine Type 2 diabetes mellitus with hemoglobin A1c goal of less than 7.0% (HCC) 05/09/2024 1:59 PM EDT CBC WITH WBC DIFFERENTIAL Lab Routine Status post bilateral below knee amputation (HCC) 05/09/2024 1:59 PM EDT CBC Lab Routine Status post bilateral below knee amputation (HCC) 05/09/2024 1:59 PM EDT DIFFERENTIAL, AUTOMATED Lab Routine Status post bilateral below knee amputation (HCC) 05/09/2024 1:59 PM EDT Scheduled Procedures Name Priority Associated [...] 07/28/2023, , 03/07/2021, Additional history exists HbA1c 09/07/2024 03/07/2024, 12/17, 12/13/2023, Additional history exists Albumin/Creatinine Ratio 01/13/2025 024, 01/05/2023, 09/01/2021, Additional history exists O2 ASSESSMENT COMPLETED IN PAST YEAR FOR COPD 02/21/2025 02/22/2024 GFR 04/13/2025 04/13/2024, 03/19, 04/11/2024, Additional history exists Depression Screening 04/19/2025 04/19/2024 DTaP,Tdap,and Td Vaccines (2 - Td or [...] encounter Medical Devices Implanted Type Area Retail Warehouse Associate Device Identifier Shelf Expiration Date Model / Serial / Lot Suture [place] Dbl Load 4.75mm - [id number] Implanted:Qty: 1 on 12/01/2019 by Judith Condon DO at OR [facility] Right: Shoulder [employer] 07/17/2021 AR-2324BCT -2 / / [id number] Suture [place] Dbl Load 5.5mm - [id number] Implanted:Qty: 1 on 12/01/2019 by Judith Condon DO at OR [facility] Right: Shoulder [employer] 09/16/2021 AR-2323BCT -2 / / [id number] documented as of this encounter Visit Diagnoses Diagnosis Type 2 diabetes mellitus with hemoglobin A1c goal of less than 7.0% (HCC) Status post bilateral below knee amputation (HCC) Lower limb amputation, below knee Acute pancreatitis documented in this encounter Advance [...] occurred with: Not Discussed Care Teams Director Clinical Operations Relationship Specialty Start Date End Date Velasquez Valencia MD [address] [place] [address] PCP - General Family Medicine 09/09/22 documented as of this encounter
--- OUTSIDE RECORDS SUMMARY | 2024-07-14 04:42 | External Medical Summary | Summary of Care ---
Author Name Unknown Organization [facility] Address [address] [facility] [place] [address] Phone [phone] Care Team Providers Care All Round Butcher Name Role Phone Velasquez Valencia MD Primary Care Provider +1- [phone] Encounter Details Date Type Department Care Team (Late st Contact Info) Description 05/09/2024 Telephone [facility] [address] [place] [address] Velasquez Valencia MD [address] [place] [address] Allergies Active Allergy Reactions Criticality Noted Date Comments Cefaclor Unknown 07/26/2018 As child Empagliflozin Other (Please comment) 05/16/2021 DKA with hospitalization Nsaids High 04/19/2019 Gastric problems Other Reaction(s): gastroparesis, kidney problems, use with caution : hx esophagus damage documented as of this encounter (statuses as of 05/11/2024) Medications Medication Sig Dispensed Refills Start Date [...] hemoglobin A1c goal of less than 7.0% ([facility]) Take 2 Tablets by mouth in the [...] hemoglobin A1c goal of less than 7.0% ([facility]) Inject 40 units twice daily- this replaces lantus 54 mL 4 01/19/2024 Active BD Pen Needle Short U/F 31G X 8 MM (Insulin Pen Needle)Indications :Type 2 diabetes mellitus with hemoglobin A1c goal of less than 7.0% ([facility]) Use to inject insulin 5 times daily [...] over 140 [see chart at bottom of [facility] visit 05/09/24], Reported on 05/09/2024 Pioglitazone HCl [...] as of this encounter (statuses as of 05/11/2024) Active Problems Problem Noted Date Diagnosed Date [...] as of this encounter (statuses as of 05/11/2024) Resolved Problems Problem Noted Date Diagnosed Date [...] as of this encounter (statuses as of 05/11/2024) Immunizations Name Administration Dates Next Due COVID-19 mRNA, LNP-s, No Pre serve, 2-Dose Series (Pfizer) 10/21/2021,03/01/2021,02/07/2021 H1N1 2009 Influenza, IM 11/04/2009 Pneumococcal Conjugate Vacci ne, 20-valent ([id number]) 07/09/2023 Pneumococcal Polysaccharide PPV23 (Pneumovax) 11/03/2015,02/09/2006 Seasonal [...] No 04/19/2024 Does the household have a [facility] source of income? (Household - for [...] Encounter - Garret Webster MED ASSIST - 05/09/2024 1:49 PM EDT Received DME order for stump shrink faxed to [facility] at [phone]. Faxed iver DME for bedside commode [facility] documented in this encounter Plan of Treatment Upcoming Encounters Date Type Department Care Team (Latest Contact Info) Description 07/18/2024 10:30 AM EDT [facility] [address] [place] [address] [facility] [address] [place] [address] 08/02/2024 11:06 AM EDT Hospital Encounter OR [facility], Operating Room, [facility] - 4th Floor [address] [place] [address] Belen Jones, DO [address] [place] [address] 08/02/2024 11:06 AM EDT - 08/02/2024 11:50 AM EDT Surgery OR [facility], Operating Room, [facility] - 4th Floor [address] [place] [address] Belen Jones, DO [address] [place] [address] ESOPHAGOGASTRODUODENOSCOPY (EGD), FLEXIBLE, TRANSORAL, ENDOSCOPIC ULTRASOUND 08/18/2024 11:00 AM EDT Office Visit [facility] [address] [facility] [address] Velasquez Valencia MD [address] [place] [facility] [place] [address] Scheduled Procedures Name Priority Associated Diagnoses Date/Ti [...] 03/07/2021, Additional history exists HbA1c 11/09/2024 05/09/2024, 0510/2023, 01/14/2024, Additional history exists Albumin/Creatinine Ratio 01/13/2025 [...] encounter Medical Devices Implanted Type Area Director Non Profit Device Identifier Shelf Expiration Date Model / Serial / Lot Suture [place] Dbl Load 4.75mm - [id number] Implanted:Qty: 1 on 12/01/2019 by Judith Condon, at OR [facility] Right: Shoulder [employer] 07/17/2021 AR-2324BCT -2 / / [id number] Suture [place] Dbl Load 5.5mm - [id number] Implanted:Qty: 1 on 12/01/2019 by Judith Condon DO at OR [facility] Right: Shoulder [employer] 09/16/2021 AR-2323BCT -2 / / [id number] documented as of this encounter Advance Directives [...] Directives occurred with: Not Discussed Care Teams All Round Butcher Relationship Specialty Start Date End Date Velasquez Valencia MD [address] [facility] [place] [address] PCP - General Family Medicine 09/09/22 documented as of this encounter
--- OUTSIDE RECORDS SUMMARY | 2024-07-14 04:42 | External Medical Summary | Summary of Care ---
Author Name Unknown Organization [facility] Address [address] [place] [address] Phone [phone] Care Team Providers Care Water Quality Tester Name Role Phone Velasquez Valencia MD Primary Care Provider +1- [phone] Encounter Details Date Type Department Care Team (Late st Contact Info) Description 05/10/2024 12:15 PM EDT Scheduled Telephone [facility] Coordination [facility] Integration [address], [place] [id number] [place] [facility] [place] [facility] [employer] [address] [place] [address] Allergies Active Allergy Reactions Criticality Noted Date [...] over 140 [see chart at bottom of [facility] visit 05/09/24], Reported on 05/09/2024 Pioglitazone [...] ([facility]) Use to check blood sugar once [...] IM 11/04/2009 Pneumococcal Conjugate Vacci ne, 20-valent ([id number]) 07/09/2023 Pneumococcal Polysaccharide PPV23 (Pneumovax) 11/03/2015,02/09/2006 Seasonal [...] as of this encounter Progress Notes * [facility] Rice [facility]ker - 05/10/2024 12:31 PM EDT Telemedicine visit: No [facility] ([facility]) documentation: CHW follow up phone call for RNCM. Patient reports to be feeling pretty well. He reports that he is waiting to get his new wheelchair.He explained that the original wheelchair he received from [employer] was not for people over 300 pounds, so they needed a new prescription for the correct size. Patient reports that he also received a bariatric bedside commode. Patient denies any abdominal or back pain, nausea, vomiting. He states that his bowel movements areokay, but not exactly what they should be. CHW asked if he takes anything to keep his bowels moving. Patient states that he takes pretty much everything you could take for it. Patient denies any current concerns to relay to the RNCM and is agreeable to follow up phone call in 1 week. Per [facility] Work[facility] Lead [facility] [place] [phone] Electronically signed by [facility] Rice [facility]ker at 05/10/2024 12:40 PM EDT documented in this encounter Plan of Treatment Upcoming Encounters Date Type Department Care Team (Latest Contact Info) Description 07/18/2024 10:30 AM EDT Office Visit Pharmacy, [place] [address] [place] [address] [facility] [address] [place] [address] 08/02/2024 11:06 AM EDT Hospital Encounter OR [facility], Operating Room, [facility] - 4th Floor [address] [place] [address] Belen Jones, DO [address] [place], [place] [address] 08/02/2024 11:06 AM EDT - 08/02/2024 11:50 AM EDT Surgery OR [facility], Operating Room, [facility] - 4th Floor [address] [place] [address] Belen Jones, DO [address] [place] [address] ESOPHAGOGASTRODUODENOSCOPY (EGD), FLEXIBLE, TRANSORAL, ENDOSCOPIC ULTRASOUND 08/18/2024 11:00 AM EDT Office Visit [facility] [address] [place] [facility] [place] [address] Velasquez Valencia MD [address] [place] [address] Scheduled Procedures Name Priority Associated Diagnoses Date/Ti [...] this encounter Medical Devices Implanted Type Area Absorption Plant Operator Helper Device Identifier Shelf Expiration Date Model / Serial / Lot Suture [place] Dbl Load 4.75mm - [id number] Implanted:Qty: 1 on 12/01/2019 by Judith Condon, DO at OR [facility] Right: Shoulder [employer] 07/17/2021 AR-2324BCT -2 / / [id number] Suture [place] Dbl Load 5.5mm - [id number] Implanted:Qty: 1 on 12/01/2019 by Judith Condon, at OR [facility] Right: Shoulder [employer] 09/16/2021 AR-2323BCT -2 / / [id number] documented as of this encounter Advance Directives [...] Directives occurred with: Not Discussed Care Teams Water Quality Tester Relationship Specialty Start Date End Date Velasquez Valencia MD [address] [place] [id number] PCP - General Family Medicine 09/09/22 documented as of this encounter
--- OUTSIDE RECORDS SUMMARY | 2024-07-14 04:42 | External Medical Summary | Summary of Care ---
Author Name Unknown Organization [facility] Address [address] [facility] [address] Phone [phone] Care Team Providers Care Document Improvement Specialist Name Role Phone Velasquez Valencia MD Primary Care Provider +1- [phone] Reason for Visit * Reason Onset Date Comments Med Request 05/09/2024 Encounter Details Date Type Department Care Team (Late st Contact Info) Description 05/09/2024 Telephone [facility] [address] [place] [address] Velasquez Valencia MD [address] [place] [address] Med Request (/) Allergies Active Allergy Reactions Criticality Noted Date Comments Cefaclor Unknown 07/26/2018 As child Empagliflozin Other (Please comment) 05/16/2021 DKA with hospitalization Nsaids High 04/19/2019 Gastric problems Other Reaction(s): gastroparesis, kidney problems, use with caution : hx esophagus damage documented as of this encounter (statuses as of 05/12/2024) Medications Medication Sig Dispensed Refills Start Date [...] of less than 7.0% ([facility]) Take 2 Tablets by mouth in [...] A DAY 180 Tablet 1 01/08/2024 Active Tosb SoloStar 300 UNIT/ML Subcutaneous Solution Pen-injector (Insulin Glargine (1 Unit Dial))Indications: Type 2 diabetes mellitus with hemoglobin A1c goal of less than 7.0% ([facility]) Inject 40 units twice daily- this [...] as of this encounter (statuses as of 05/12/2024) Active Problems Problem Noted Date Diagnosed Date [...] as of this encounter (statuses as of 05/12/2024) Resolved Problems Problem Noted Date Diagnosed Date [...] as of this encounter (statuses as of 05/12/2024) Immunizations Name Administration Dates Next Due COVID-19 mRNA, LNP-s, No Pre serve, 2-Dose Series (Pfizer) 10/21/2021,03/01/2021,02/07/2021 H1N1 2009 Influenza, IM 11/04/2009 Pneumococcal Conjugate Vacci ne, 20-valent ([id number]) 07/09/2023 Pneumococcal Polysaccharide PPV23 (Pneumovax) 11/03/2015,02/09/2006 Seasonal [...] encounter Miscellaneous Notes * Telephone Encounter - Maura Ramirez LPN - 05/12/2024 11:45 AM EDT There is another encounter from 05/10/2024 related to this encounter * Telephone Encounter - Suzanne Hendrickson CPhT - 05/12/2024 8:39 AM EDT Patient is asking high priority because the chair he is using now he is going to fall through on. Please advise when order go through An order was requested for this patient. Name of Requestor: Bry Hermilo Order Request: W heelchair Diagnosis/Reason for Request: amputee Does the order need to be faxed somewhere? If so, where?: [facility] Fax Number, if applicable: Call Back Number: [phone] Thank you, Suzanne Hendrickson CPhT Ladle Liner [facility] 05/12/2024,8:39 AM * Telephone Encounter - Garret Webster MED ASSIST - 05/09/2024 1:49 PM EDT Received DME order for stump shrink faxed to [facility] at [phone]. [facility] documented in this encounter Plan of Treatment Upcoming Encounters Date Type Department Care Team (Latest Contact Info) Description 07/18/2024 10:30 AM EDT [facility] Visit [facility] [place] [address] [facility] [address] [place] [address] [facility] [address] 08/02/2024 11:06 AM EDT Hospital Encounter OR [facility], Operating Room, [facility] - 4th Floor [address] [place] [address] Belen Jones, DO [address] [place] [address] 08/02/2024 11:06 AM EDT - 08/02/2024 11:50 AM EDT Surgery OR [facility], Operating Room, [facility] - 4th Floor [address] [place] [address] Belen Jones, DO [address] [place] [address] ESOPHAGOGASTRODUODENOSCOPY (EGD), FLEXIBLE, TRANSORAL, ENDOSCOPIC ULTRASOUND 08/18/2024 11:00 AM EDT Office Visit [facility] [address] [facility] [phone] Velasquez Valencia MD [address] [facility] [address] Scheduled Procedures Name Priority Associated Diagnoses Date/Ti [...] 02/07/2021 DISCUSS TOBACCO CESSATION (REFER TO SMARTSET #6357) 10/16/2023 10/16/2022 Zoster Vaccines (1 of 2) [...] this encounter Medical Devices Implanted Type Area Agency Owner Device Identifier Shelf Expiration Date Model / Serial / Lot Suture [place] Dbl Load 4.75mm - [id number] Implanted:Qty: 1 on 12/01/2019 by Judith Condon, at OR [facility] Right: Shoulder [employer] 07/17/2021 AR-2324BCT -2 / / [id number] Suture [place] Dbl Load 5.5mm - [id number] Implanted:Qty: 1 on 12/01/2019 by Judith Condon, at OR [facility] Right: Shoulder [employer] 09/16/2021 AR-2323BCT -2 / / [id number] documented as of this encounter Advance Directives [...] Directives occurred with: Not Discussed Care Teams Document Improvement Specialist Relationship Specialty Start Date End Date Velasquez Valencia MD [address] [place] [address] PCP - General Family Medicine 09/09/22 documented as of this encounter
--- OUTSIDE RECORDS SUMMARY | 2024-07-14 04:42 | External Medical Summary | Summary of Care ---
Author Name Unknown Organization [facility] Address [address] [facility] [address] Phone [phone] Care Team Providers Care Lap Polisher Name Role Phone Velasquez Valencia MD Primary Care Provider +1- [phone] Reason for Visit * Reason Onset Date Comments Hospital Follow-Up Hospital Follow-Up 04/14/2024 Hospital Follow-Up 04/27/2024 Encounter Details Date Type Department Care Team (Late st Contact Info) Description 04/14/2024 11:20 AM EDT Office Visit [facility] [address] [place] [address] Velasquez Valencia MD [address] [place] [address] Abdominal pain, generalized*; History of pancreatitis; Hx of BKA, left (HCC); Phantom limb pain (HCC); Hospital discharge follow-up; Cortical age-related cataract, right eye Allergies Active Allergy Reactions Criticality Noted Date [...] goal of less than 7.0% ([facility]) Take 2 Tablets by mouth in [...] goal of less than 7.0% ([facility]) Inject 40 units twice daily- this replaces [...] over 140 [see chart at bottom of [facility] visit 05/09/24], Reported on 05/09/2024 Pioglitazone [...] it has been 80 Tablet 4 Active Dicyclomine HCl 10 MG Oral Capsule (Bentyl) take 1 capsule by mouth four times a day 360 Capsule 3 3 04/26/20 24 Discontinued Gabapentin 100 MG Oral Capsule (Neurontin)Indic ations:Neuropath y take 1 capsule by mouth every morning and 2 capsules by mouth at bedtime 270 Capsule 1 3 04/16/20 24 Discontinued(Ref ill) Atorvastatin Calcium 20 MG Oral Tablet (Lipitor) Take 1 Tablet by mouth in the morning. 90 Tablet 3 3 04/28/20 24 Discontinued(Ref ill) Movantik 25 MG Oral Tablet (Naloxegol Oxalate) take 1 tablet by mouth in the morning 30 Tablet 4 04/27/20 24 Discontinued Alum & Mag Hydroxide-Simeth 400-400-40 MG/5ML Oral Suspension (Mi-Acid II) Take 15 mL by mouth every 6 hours. 355 mL 3 4 04/21/20 24 Discontinued(Ref ill) documented as of this encounter (statuses as [...] mRNA, LNP-s, No Pre serve, 2-Dose Series ([employer]) 10/21/2021,03/01/2021,02/07/2021 H1N1 2009 Influenza, IM 11/04/2009 Pneumococcal Conjugate Vacci ne, 20-valent ([id number]) 07/09/2023 Pneumococcal Polysaccharide PPV23 (Pneumovax) 11/03/2015,02/09/2006 Seasonal [...] Sign Reading Time Taken Comments Blood Pressure 112/74 04/14/2024 11:01 AM EDT Pulse 96 04/14/2024 11:01 AM EDT Temperature 36.6 C (97.8 F) 04/14/2024 11:01 AM E DT Respiratory Rate 18 04/14/2024 11:01 AM EDT Oxygen Saturation 95% 04/14/2024 11:01 AM EDT Inhaled Oxygen Concentration - - Weight - - Height - - Body Mass Index - - documented in this encounter Functional Status Functional [...] Progress Notes * Velasquez Valencia MD - 04/14/2024 11:45 AM EDT Subjective: Bry Akhtar Jr. is a 48 year old male here today for hospital follow up. Patient presents for recent admission to [facility] from 04/10/24 - 04/13/24 for abdominal pain. Was admitted with diagnosis of pancreatitis based on elevated lipase level. By the end of the hospitalization, there was some question as to whether this truly represented pancreatitis. Patient does have significant issues with constipation. Has had multiple recent ER visits and admissions for abdominal pain and constipation. Reviewing inpatient gastroenterology notes, it appears heis to be set up for an endoscopic ultrasound. Patient has not yet heard about getting this scheduled. Patient had been admitted to [facility] in February and had a left [id number] amputation on March 12, 2024. Patient was in the rehab part of the hospital when he signed out AMA because he did not believe that they were paying attention to his complaints of abdominal pain. He does have follow-up scheduled with the vascular surgeon. Due to signing out AMA, they have now found that they are not able to get into any inpatient rehab facilities. Patient is not sure how he should arrange getting a prosthetic in the future. 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 Current use of insulin ([facility]) 09/13/2017 DDD (degenerative disc disease), cervical 07/12/2019 Diabetes mellitus type 2, insulin dependent ([facility]) 07/05/2017 Diabetic polyneuropathy associated with type 2 diabetes mellitus ([facility]) 07/24/2016 Displacement of lumbar intervertebral disc without myelopathy DM type 2, goal: symptom mgmt ([facility]) 09/13/2017 DM type 2, not at goal ([facility]) Dyslipidemia, goal LDL below 70 07/24/2016 Gastroesophageal reflux disease without esophagitis 05/07/2020 Gastroparesis 08/27/2015 GERD (gastroesophageal reflux disease) History of DVT (deep vein thrombosis) 04/19/2019 HTN, goal below 140/90 12/23/2015 Per HTN Protocol #27. HTN, goal: symptom mgmt only 09/13/2017 IBS (irritable bowel syndrome) 08/27/2015 Intellectual disability 10/25/2019 Major depressive disorder, recurrent, severe without psychotic features ([facility]) 12/22/2016 Obesity, Class II, BMI 35-39.9, isolated (see actual BMI) 04/19/2019 OTHER osseochondrosis ankle Primary localized osteoarthrosis, lower leg Sleep apnea, obstructive Tobacco use disorder 12/22/2016 Type 2 diabetes mellitus with hemoglobin A1c goal of less than 8.0% ([facility]) 07/05/2017 Past Surgical History: Procedure Laterality Date ARTHO,TOMAS,W/ROTATOR CUFF Right 12/01/2019 ARTHROSCOPY SHOULDER ROTATOR CUFF performed by Judith Condon DO at OR [facility] COLONOSCOPY, DIAGNOSTIC (RECTUM) 04/18/2015 adenomatous polyp, repeat 5 yrs/[facility] COLONOSCOPY, DIAGNOSTIC (RECTUM) 04/15/2023 poor prep, repeat / [facility] COLONOSCOPY, DIAGNOSTIC (RECTUM) N/A 02/22/2024 normal/recall 5 years/COLONOSCOPY FLEXIBLE PROXIMAL DIAGNOSTIC performed by Marcela Del Valle MD at OR [facility] EGD, FLEXIBLE, DIAGNOSTIC 10/17/2014 mild-mod inflammation, repeat 1-2 mo/[facility] EGD, FLEXIBLE, DIAGNOSTIC 04/17/2015 normal bx/inpt [facility] EGD, FLEXIBLE, DIAGNOSTIC 05/08/2019 reflux esophagitis, gastritis, duodenitis, repeat 6 wks / [facility] EGD, FLEXIBLE, DIAGNOSTIC 08/18/2019 normal-EGD/[place] EGD, FLEXIBLE, DIAGNOSTIC N/A 05/02/2020 biopsies normal/E[facility] EGD, FLEXIBLE, DIAGNOSTIC N/A 02/22/2024 antral gastritis/biopsies normal/ESOPHAGOGASTRODUODENOSCOPY (EGD), FLEXIBLE, TRANSORAL, DIAGNOSTIC performed by Marcela Del Valle MD at OR [facility] INJECT DX/THER SUBSTANCE INTERLAMINAR CERVICAL/THORACIC W IMAGE GUIDE 08/17/2019 INJECTION SPINE LUMBAR CERVICAL OR THORACIC performed by Dario Nails DO at OR [facility] KNEE ARTHROSCOPY, DIAGNOSTIC l knee REMOVAL OF TONSILS, UNDER AGE 10 SHOULDER ARTHROSCOPY, BICEPS TENODESIS Right 12/01/2019 ARTHROSCOPY SHOULDER BICEP TENODESIS performed by Judith Condon DO at OR [facility] SHOULDER ARTHROSCOPY/DECOMPRESSION Right 12/01/2019 ARTHROSCOPY SHOULDER SUBACROMIAL DECOMPRESSION performed by Judith Condon DO at OR [facility] Review of patient's allergies indicates: Allergen Reactions Nsaids Gastric problems Other Reaction(s): gastroparesis, kidney problems, use with caution : hx esophagus damage Ceclor [Cefaclor] Unknown As child Jardiance [Empagliflozin] Other (Please comment) DKA with hospitalization Current Outpatient Medications Medication Sig Dispense Refill traMADol HCl 50 MG Oral Tablet (Ultram) Take 1 Tablet by mouth every 6 hours as needed for Pain, Severe. Take 1-2 tabs by mouth every 6 hours as needed for severe pain in want to do it due 8 it has been 80 Tablet 0 Albuterol Sulfate HFA 108 (90 Base) MCG/ACT [...] mouth in the morning. 90 Tablet 3 Atorvastatin Calcium 20 MG Oral Tablet (Lipitor) [...] TAKE 1 TABLET BY MOUTH TWICE A [id number] Tablet 1 Toujeo SoloStar 300 UNIT/ML Subcutaneous Solution Pen-injector [...] over 150. Max daily dose of 115 mL 4 Pioglitazone HCl 45 MG Oral [...] 30 MINUTESbefore MEALS ) 270 Tablet 1 Gabapentin 100 MG Oral Capsule (Neurontin) TAKE ONE CAPSULE BY MOUTH IN THE MORNING AND TWO CAPSULES AT BEDTIME 270 Capsule 1 Alum & Mag Hydroxide-Simeth 400-400-40 MG/5ML Oral Suspension (Mi-Acid II) Take 15 ml every 6 hours as needed for constipation 355 mL 3 Polyethylene Glycol 3350 17 GM/SCOOP Oral Powder (Miralax) Take 1 scoop daily in 8 ounces of water.510 g 5 Dicyclomine HCl 10 MG Oral Capsule (Bentyl) TAKE 1 CAPSULE BY MOUTH FOUR TIMES DAILY 360 Capsule 0 Movantik 25 MG Oral Tablet (Naloxegol Oxalate) take 1 tablet by mouth in the morning 30 Tablet 0 No current facility-administered medications for this visit. Objective: BP 112/74 | Pulse 96 | Temp 36.6 C (97.8 F) (Infrared ) | Resp 18 | SpO2 95% GEN: NAD HEENT: Benign NECK: Supple with no LAD, TM, JVD CHEST: CTA B CV: RRR ABD: Soft, NT/ND, No HSM, NABS EXT: No c,c,e Assessment and Plan: Abdominal pain, generalized (Primary) - traMADol HCl 50 MG Oral Tablet (Ultram); Take 1 Tablet by mouth every 6 hours as needed for Pain,Severe. Take 1-2 tabs by mouth every 6 hours as needed for severe pain in want to do it due 8 it has been -patient aware to minimize his use of opioid pain medication as this can contribute to constipation. He is on Movantik. He has had difficulty with his bowels despite aggressive bowel regimen. He has no scheduled follow-up with Gastroenterology. Notes indicate that he has to have an outpatient endoscopic ultrasound. Patient is not aware of anything being scheduled. History of pancreatitis Hx of BKA, left (HCC) Phantom limb pain (HCC) - traMADol HCl 50 MG Oral Tablet (Ultram); Take 1 Tablet by mouth every 6 hours as needed for Pain,Severe. Take 1-2 tabs by mouth every 6 hours as needed for severe pain in want to do it due 8 it has been -patient should keep follow up with vascular surgeon as scheduled for wound check and re-evaluate. It is reasonable to discuss acquiring a prosthetic with that physician. It is medically necessary for him to have a wheelchair at this time. It will be a while before he can transition into a prosthetic limb. Hospital discharge follow-up - DISCH MED RECON CUR CORBIN LIS Check-out note: Please see if we can get energy rehab to do therapy in the home. If not, please assist with Carolina lazcano Lyerly - PT order already entered by [facility] physician. If a new one is needed by me, let me know Our next appt is 05/08 - he will not be able to keep that appt because he will need to have his key out. He will be seeing Gisel 05/09. Please cancel 05/08 and put him on my scheduled 05/09 at 1 PM Velasquez Valencia MD Addendum 05/12/24: Patient's current weight is 325 lbs. We are requesting a heavy duty wheelchair for use in the home.Bry has a mobility limitation related to recent BKA and this significantly impairs his ability toparticipate in mobility related activities of daily living. The limitation cannot be resolved by use of cane or walker. Velasquez Valencia MD documented in this encounter Nursing Notes * Uzma Morin LPN - 04/14/2024 11:00 AM EDT The patient has been properly identified by confirmation of name and date of . Chief Complaint Patient presents with Hospital Follow-Up [facility] 04/13/24 Back pain and abdominal pain has gotten somewhat better but does still have it. Also having issues with bowels. Diarrhea for the last few days. documented in this encounter Plan of Treatment Upcoming Encounters Date Type Department Care Team (Latest Contact Info) Description 07/18/2024 10:30 AM EDT Office Visit [address] [place] [address] [facility] [address] [place] [facility] [place] [address] 08/02/2024 11:06 AM EDT Hospital Encounter OR [facility], Operating Room, [facility] - 4th Floor [address] [facility] [address] Belen Jones, DO [address] [place] [address] 08/02/2024 11:06 AM EDT - 08/02/2024 11:50 AM EDT Surgery OR [facility], Operating Room, [facility] - 4th Floor [address] [facility] [place] [address] Belen Jones, DO [address] [place] [address] ESOPHAGOGASTRODUODENOSCOPY (EGD), FLEXIBLE, TRANSORAL, ENDOSCOPIC ULTRASOUND 08/18/2024 11:00 AM EDT Office Visit [facility] [address] [place] [facility] [place] [address] Velasquez Valencia MD [address] [place] [facility] [place] [address] Scheduled Procedures Name Priority Associated Diagnoses Date/Ti [...] this encounter Medical Devices Implanted Type Area Pathology Transcriptionist Device Identifier Shelf Expiration Date Model / Serial / Lot Suture [place] Dbl Load 4.75mm - [id number] Implanted:Qty: 1 on 12/01/2019 by Judith Condon, at OR [facility] Right: Shoulder [employer] 07/17/2021 AR-2324BCT -2 / / [id number] Suture [place] Dbl Load 5.5mm - [id number] Implanted:Qty: 1 on 12/01/2019 by Judith Condon, at OR [facility] Right: Shoulder [employer] 09/16/2021 AR-2323BCT -2 / / [id number] documented as of this encounter Visit Diagnoses Diagnosis Abdominal pain, generalized- Primary History of pancreatitis Personal history of other diseases of digestive system Hx of BKA, left (HCC) Phantom limb pain (HCC) Phantom limb (syndrome) Hospital discharge follow-up Other follow-up examination Cortical age-related cataract, right eye Acute pancreatitis documented in this encounter Advance [...] Directives occurred with: Not Discussed Care Teams Lap Polisher Relationship Specialty Start Date End Date Velasquez Valencia MD [address] [place] [address] PCP - General Family Medicine 09/09/22 documented as of this encounter"
--- OUTSIDE RECORDS SUMMARY | 2024-07-14 04:42 | External Medical Summary | Summary of Care ---
Author Name Unknown Organization [facility] Address [address] [facility] [address] Phone [phone] Care Team Providers Care Multimedia Production Assistant Name Role Phone Velasquez Valencia MD Primary Care Provider +1- [phone] Reason for Visit * Reason Onset Date Comments Med Request 05/09/2024 Encounter Details Date Type Department Care Team (Late st Contact Info) Description 05/09/2024 Telephone [facility] [address] [place] [address] Velasquez Valencia MD [address] [place] [address] Med Request (/) Allergies Active [...] hemoglobin A1c goal of less than 7.0% ([facility]) Take 2 Tablets by mouth [...] hemoglobin A1c goal of less than 7.0% ([facility]) Inject 40 units twice daily- [...] IM 11/04/2009 Pneumococcal Conjugate Vacci ne, 20-valent (Sshevap01) 07/09/2023 Pneumococcal Polysaccharide PPV23 (Pneumovax) 11/03/2015,02/09/2006 Seasonal [...] encounter Miscellaneous Notes * Telephone Encounter - Suzanne Hendrickson CPhT [...] to be faxed somewhere? If so, where?: [facility] Fax Number, if applicable: Call Back Number: [phone] Thank you, Suzanne Hendrickson CPhT Qualitative Executive Researcher [facility]) 05/12/2024,8:39 AM * Telephone Encounter - Garret Webster MED ASSIST - 05/09/2024 1:49 PM EDT Received DME order for stump shrink faxed to [facility] [employer] [facility] at [phone]. Faxed iver DME for bedside commode to [facility] documented in this encounter Plan of Treatment Upcoming Encounters Date Type Department Care Team (Latest Contact Info) Description 07/18/2024 10:30 AM EDT Office Visit Pharmacy, [place] [address] [place], [place] [address] [address] [facility] [address] [place] [facility] [place] [address] 08/02/2024 11:06 AM EDT Hospital Encounter [facility], Operating Room, [facility] - 4th Floor [address] [place] [address] Belen Jones, DO [address] [place] [address] 08/02/2024 11:06 AM EDT - 08/02/2024 11:50 AM EDT Surgery OR [facility], Operating Room, [facility] - 4th Floor [address] [place] [address] Belen Jones, DO [address] [place] [address] ESOPHAGOGASTRODUODENOSCOPY (EGD), FLEXIBLE, TRANSORAL, ENDOSCOPIC ULTRASOUND 08/18/2024 11:00 AM EDT Office Visit [facility] [address] [place] [address] Velasquez Valencia MD [address] [place] [address] Scheduled Procedures Name Priority Associated Diagnoses Date/Ti [...] Blood Test 2018 Sigmoidoscopy 2018 COVID-19 Vaccine (2022- season) 2023 10/21/2021, 03/01/2021, 02/07/2021 DISCUSS TOBACCO CESSATION (REFER TO SMARTSET #5771) 10/16/2023 10/16/2022 Zoster Vaccines (1 of 2) [...] encounter Medical Devices Implanted Type Area Director Of Counterintelligence Device Identifier Shelf Expiration Date Model / Serial / Lot Suture [place] Dbl Load 4.75mm - [id number] Implanted:Qty: 1 on 12/01/2019 by Judith Condon, at OR [facility] Right: Shoulder [employer] 07/17/2021 AR-2324BCT -2 / / [id number] Suture [place] Dbl Load 5.5mm - [id number] Implanted:Qty: 1 on 12/01/2019 by Judith Condon, at OR [facility] Right: Shoulder [employer] 09/16/2021 AR-2323BCT -2 / / [id number] documented as of this encounter Advance Directives [...] Directives occurred with: Not Discussed Care Teams Multimedia Production Assistant Relationship Specialty Start Date End Date Velasquez Valencia MD [address] [place] [facility] [place] [address] PCP - General Family Medicine 09/09/22 documented as of this encounter
--- OUTSIDE RECORDS SUMMARY | 2024-07-14 04:42 | External Medical Summary | Summary of Care ---
Author Name Unknown Organization [facility] Address [address] [facility] [address] Phone [phone] Care Team Providers Care Electrical Design Engineer Name Role Phone Velasquez Valencia MD Primary Care Provider +1- [phone] Reason for Visit * Reason Onset Date Comments Med Request 05/09/2024 Encounter Details Date Type Department Care Team (Late st Contact Info) Description 05/09/2024 Telephone [facility] [address] [place] [address] Velasquez Valencia MD [address] [place] [address] Med Request (/) Allergies Active [...] 7.0% ([facility]) Take 2 Tablets by mouth in the [...] IM 11/04/2009 Pneumococcal Conjugate Vacci ne, 20-valent ([id number]) 07/09/2023 Pneumococcal Polysaccharide PPV23 (Pneumovax) 11/03/2015,02/09/2006 Seasonal [...] to be faxed somewhere? If so, where?: [facility] Fax Number, if applicable: Call Back Number: [phone] Thank you, Suzanne Hendrickson CPhT Dryer Operator [facility] ([facility]) 05/12/2024,8:39 AM * Telephone Encounter - Garret Wesbter MED ASSIST - 05/09/2024 1:49 PM EDT Received DME order for stump shrink faxed to at [phone]. Faxed iver DME for bedside commode to [facility] documented in this encounter Plan of Treatment Upcoming Encounters Date Type Department Care Team (Latest Contact Info) Description 07/18/2024 10:30 AM EDT Office Visit Pharmacy, [place] [address] [place], [place] [address] [address] [facility] [address] [place] [address] 08/02/2024 11:06 AM EDT Hospital Encounter [facility], Operating Room, [facility] - 4th Floor [address] [place] [address] Belen Jones, DO [address] [place] [address] 08/02/2024 11:06 AM EDT - 08/02/2024 11:50 AM EDT Surgery OR [facility], Operating Room, [facility] - 4th Floor [address] [place] [address] Belen Jones, DO [address] [place] [address] ESOPHAGOGASTRODUODENOSCOPY (EGD), FLEXIBLE, TRANSORAL, ENDOSCOPIC ULTRASOUND 08/18/2024 11:00 AM EDT Office Visit [facility] [address] [place] [address] Velasquez Valencia MD [address] [place] [address] Scheduled Procedures Name Priority Associated Diagnoses Date/Ti [...] 02/07/2021 DISCUSS TOBACCO CESSATION (REFER TO SMARTSET #0571) 10/16/2023 10/16/2022 Zoster Vaccines (1 of 2) [...] this encounter Medical Devices Implanted Type Area Traffic Signal Mechanic Device Identifier Shelf Expiration Date Model / Serial / Lot Suture [place] Dbl Load 4.75mm - [id number] Implanted:Qty: 1 on 12/01/2019 by Judith Condon, at [facility] Right: Shoulder [employer] 07/17/2021 AR-2324BCT -2 / / [id number] Suture [place] Dbl Load 5.5mm - [id number] Implanted:Qty: 1 on 12/01/2019 by Judith Condon, at OR [facility] Right: Shoulder [employer] 09/16/2021 AR-2323BCT -2 / / [id number] documented as of this encounter Advance Directives [...] Directives occurred with: Not Discussed Care Teams Electrical Design Engineer Relationship Specialty Start Date End Date Velasquez Valencia MD [address] [place] [facility] [place] [address] PCP - General Family Medicine 09/09/22 documented as of this encounter
--- OUTSIDE RECORDS SUMMARY | 2024-07-14 04:42 | External Medical Summary | Summary of Care ---
Author Name Unknown Organization [facility] Address [address] [facility] [address] Phone [phone] Care Team Providers Care B2B Managed Service Sales Exec Name Role Phone Velasquez Valencia MD Primary Care Provider +1- [phone] Reason for Visit * Reason Comments Dosage Adjustment In Person (Anticoag Cl inic) Encounter Details Date Type Department Care Team (Late st Contact Info) Description 05/09/2024 2:30 PM EDT Office Visit Pharmacy, [address] [address] [facility] [address] [place] [address] Type 2 diabetes mellitus with hemoglobin A1c goal of less than 7.0% ([facility])* Allergies Active Allergy Reactions Criticality Noted Date [...] than 7.0% ([facility]) Inject 40 units twice daily- this replaces [...] over 140 [see chart at bottom of [facility] visit 05/09/24], Reported on 05/09/2024 [...] less than 7.0% ([facility]) Use to check blood sugar once daily as needed E11.9 100 Strip 05/09/2024 Active SpoqaTouch Delica Lancets 33GIndications:Typ e 2 diabetes mellitus with hemoglobin A1c goal of less than 7.0% ([facility]) Use to check blood sugars once daily as needed E11.9 100 Each 05/09/2024 Active documented as of [...] IM 11/04/2009 Pneumococcal Conjugate Vacci ne, 20-valent ([id number]) 07/09/2023 Pneumococcal Polysaccharide PPV23 (Pneumovax) 11/03/2015,02/09/2006 Seasonal [...] this encounter Progress Notes * Gisel Butler, [facility] - 05/09/2024 2:32 PM EDT Images from the original note were not included. Medication Therapy [facility] - Diabetes Management Progress Note Bry Akhtar Jr., identified by name and date of , is a 48 year old male being seen for diabetes management/education. Patient presents for return diabetic visit. DIABETES: Current diabetic medications: Metformin HCL 500mg, 2 tabs BID Toujeo U300 40 units in AM and 40 units in PM - taking 35 units BID INC Novolog 32 units with breakfast, and 22 units with all other meals + CF of 1:12 over 150 [see chart at bottom of note 02/16/24] INC Pioglitazone 45 mg daily eGFR> 90 mL/min as of 12/22/23 Medication Injection Site: Abdomen Lifestyle: Diet: unchanged Glucose Review/SMBG: Readings obtained from patient device Hypoglycemia: Does your blood sugar go below 70 mg/dL? No Hyperglycemia symptoms present: none Recent Labs Units 03/07/24 0517 01/14/24 1059 12/13/23 0439 HEMOGLOBIN A1C - [facility] % -- 10.2* 10.1* HEMOGLOBIN, [id number] LAB % 10.0* -- -- Recent Labs Units 04/13/24 0430 04/12/24 0945 04/11/24 0345 ESTIMATED GLOMERULAR FILTRATION RATE - [facility] mL/min >90 79 74 CREATININE - [facility] mg/dL 1.0 1.1 1.2 HYPERTENSION: Patient on ACEi/ARB: yes BP Readings from Last 3 Encounters: 05/09/24 138/78 04/14/24 112/74 04/13/24 178/85 Blood pressure at goal: yes HYPERLIPIDEMIA: Patient is taking moderate or high intensity statin: yes HEALTH MAINTENANCE REVIEW: Health Maintenance Due Topic Date Due HIV Screening Never done Alpha-1 Antitrypsin Never done Hepatitis C Screening Never done Hepatitis B Vaccine (1 of - + 3-dose series) Never done COVID-19 Vaccine (2022- season) 2023 DISCUSS TOBACCO CESSATION (REFER TO [employer] #[id number]) 10/16/2023 Zoster Vaccines (1 of 2) Never done *COPD SEVERITY VERIFIED BY PFT Never done ASSESSMENT & PLAN: ICD-10-CM 1. Type 2 diabetes mellitus with hemoglobin A1c goal of less than 7.0% ([facility]) E11.9 Considerations: - Jardiance caused DKA - hx of acute pancreatitis 12/14/23 & 03/2024- avoiding GLPs and GIPs BG Readings - Blood sugars uncontrolled. Average is 193. A1c in process today. Overall stable, but elevated Medications - Reviewed current regimen, patient is adherent to regimen. Does note that he has been taking less toujeo lately- states that he was called and told to decrease the dose, no record for this in [facility]. He is agreeable to resume 40 units twice daily. Adjustments made in novolog dosing chart to better target the higher sugars. See note below on whatchanges were made. Diet, Exercise, Lifestyle - No significant lifestyle changes since last visit. Discussed with patient . Patient is agreeable to SMBG with Dexcom g6 daily. Patient aware to contact clinic if any hypoglycemia before next visit. MEDICATION CHANGES: yes, see below; preferred pharmacy: [facility] ([facility]) Diabetic Medications: Metformin HCL 500mg, 2 tabs BID Toujeo U300 40 units in AM and 40 units in PM - taking 35 units BID INC Novolog 34 units with breakfast, and 22 units with lunch and 24 units with supper + 10 units with snacks + CF of 1:10 over 140 [see chart at bottom of note 05/09/24] Pioglitazone 45 mg daily eGFR> 90 mL/min as of 12/22/23 FOLLOW UP: Return to clinic in 8 weeks 07/18/2024 Gisel Butler RP Clinical Pharmacist - Steam Engineer Med[facility] 05/09/2024, 2:32 PM 05/09/24 Fast Acting Insulin: Novolog To find insulin dose: 1) Find the ROW in which pre-meal blood sugar is in (on LEFT of chart) 2) Find COLUMN which represents which meal you are eating 3) Go across row from step 1 and go down column from step 2 4) Where the row and column cross - that is the dose of fast acting insulin Blood Sugar levels Am meal Lunch PM Meal Snack High Before bed 110 to 119 32 20 22 8 120 to 129 33 21 23 9 130 to 139 34 22 24 10 140 to 149 34 22 24 10 150 to 159 35 23 25 11 160 to 169 36 24 26 12 170 to 179 37 25 27 13 180 to 189 38 26 28 14 190 to 199 39 27 29 15 9 200 to 209 40 28 30 16 10 210 to 219 41 29 31 17 11 220 to 229 42 30 32 18 12 230 to 239 43 31 33 19 13 240 to 249 44 32 34 20 14 250 to 259 45 33 35 21 15 260 to 269 46 34 36 22 16 270 to 279 47 35 37 23 17 280 to 289 48 36 38 24 18 290 to 299 49 37 39 25 19 300 to 309 50 38 40 26 20 310 to 319 51 39 41 27 21 320 to 329 52 40 42 28 22 330 to 339 53 41 43 29 23 340 to 349 54 42 44 30 24 Parameters fixed 34 22 24 10 ashley 10 over 140 documented in this encounter Plan of Treatment Upcoming Encounters Date Type Department Care Team (Latest Contact Info) Description 07/18/2024 10:30 AM EDT Office Visit Pharmacy, [place] [address] [place] [address] [facility] [address] [facility] [address] 08/02/2024 11:06 AM EDT Hospital Encounter OR GL, Operating Room, [facility] - 4th Floor [address] [place] [address] Belen Jones, DO [address] [place] [address] 08/02/2024 11:06 AM EDT - 08/02/2024 11:50 AM EDT Surgery OR [facility], Operating Room, [facility] - 4th Floor [address] [place] [address] Belen Jones, DO [address] [place] [address] ESOPHAGOGASTRODUODENOSCOPY (EGD), FLEXIBLE, TRANSORAL, ENDOSCOPIC ULTRASOUND 08/18/2024 11:00 AM EDT Office Visit [facility] [address] [place] [address] Velasquez Valencia MD [address] [place] [address] Scheduled Procedures Name Priority Associated Diagnoses Date/Ti [...] this encounter Medical Devices Implanted Type Area Donor Center Technician Device Identifier Shelf Expiration Date Model / Serial / Lot Suture Crawford Dbl Load 4.75mm - [id number] Implanted:Qty: 1 on 12/01/2019 by Judith Condon, DO at OR [facility] Right: Shoulder [employer] 07/17/2021 AR-2324BCT -2 / / [id number] Suture Crawford Dbl Load 5.5mm - [id number] Implanted:Qty: 1 on 12/01/2019 by Judith Condon, at OR [facility] Right: Shoulder [employer] 09/16/2021 AR-2323BCT -2 / / [id number] documented as of this encounter Visit Diagnoses Diagnosis Type 2 diabetes mellitus with hemoglobin A1c goal of less than 7.0% (HCC)- Primary Acute pancreatitis documented in this [...] Directives occurred with: Not Discussed Care Teams B2B Managed Service Sales Exec Relationship Specialty Start Date End Date Velasquez Valencia MD [address] [place] [address] PCP - General Family Medicine 09/09/22 documented as of this encounter
--- OUTSIDE RECORDS SUMMARY | 2024-07-14 04:43 | External Medical Summary | Summary of Care ---
Author Name Unknown Organization [facility] Address [address] [place] [address] Phone [phone] Care Team Providers Care Firearms Sales Associate Name Role Phone Velasquez Valencia MD Primary Care Provider +1- [phone] Encounter Details Date Type Department Care Team (Late st Contact Info) Description 05/03/2024 2:15 PM EDT Scheduled Telephone Care Coordination and Integration [address] [place], [place] [id number] [facility] Yard Operator [address] [place] [address] Allergies Active Allergy Reactions Criticality Noted Date Comments Cefaclor Unknown 07/26/2018 As child Empagliflozin Other (Please comment) 05/16/2021 DKA with hospitalization Nsaids High 04/19/2019 Gastric problems Other Reaction(s): gastroparesis, kidney problems, use with caution : hx esophagus damage documented as of this encounter (statuses as of 05/03/2024) Medications Medication Sig Dispensed Refills Start Date [...] it has been 80 Tablet 04/14/2024 Active Gabapentin 100 MG Oral Capsule (Neurontin)Indicat ions:Neuropathy TAKE ONE CAPSULE BY MOUTH IN THE MORNING AND TWO CAPSULES AT BEDTIME 270 Capsule 1 04/17/2024 Active Alum & Mag Hydroxide-Simeth 400-400-40 MG/5ML [...] the morning. 90 Tablet 3 04/28/2024 Active documented as of this encounter (statuses as of 05/03/2024) Active Problems Problem Noted Date Diagnosed Date [...] Hyperlipidemia with target LDL less than 70 10/0 04/2016 Gastroparesis 08/27/2015 IBS (irritable bowel syndrome) 08/27/2015 Type 2 diabetes mellitus wit h hemoglobin A1c goal of less than 7.0% 08/01/2009 Overview: Modified per Diabetes protocol #14. ICD-10 update of inactive term Morbid obesity 12/15/2002 Overview: Per Obesity Taxonomy documented as of this encounter (statuses as of 05/03/2024) Resolved Problems Problem Noted Date Diagnosed Date [...] as of this encounter (statuses as of 05/03/2024) Immunizations Name Administration Dates Next Due COVID-19 mRNA, LNP-s, No Pre serve, 2-Dose Series (Pfizer) 10/21/2021,03/01/2021,02/07/2021 H1N1 2009 Influenza, IM 11/04/2009 Pneumococcal Conjugate Vacci ne, 20-valent ([id number]) 07/09/2023 Pneumococcal Polysaccharide PPV23 (Pneumovax) 11/03/2015,02/09/2006 Seasonal [...] No 04/19/2024 Does the household have a [facility] source of income? (Household - for [...] this encounter Progress Notes * Eusebio Harris [facility] Yard Operator - 05/03/2024 2:41 PM EDT Telemedicine visit: No [facility] Yard Operator (AGA) documentation: CHW follow up phone call for RNCM and spoke with both patient and spouse, who report that they are actually leaving the house to go to therapy. They report that the prescription that the PCP wrote for a bariatric bedside commode will not work, becausethe insurance says that the patient is under 300 pounds and doesn't qualify. CHW asked if the patient would need a standard bedside commode. Patient explained that he has a standard bedside commode, but feels that a bariatric one would work better. Patient's spouse stated that it shouldn't matter how heavy the patient is, he is an amputee. Patient reports that the last time he was weighed he was 270 pounts. He said he will be weighed again today at therapy. CHW explained that bariatric directlypertains to a patient's size. CHW explained that I will relay this information back to the RNCM to let her know. Patient and spouse deny any other questions/concerns at this time. Patient agreeable to follow up phone call in 1 week. Per Harris [facility] [phone] Electronically signed by Eusebio Harris [facility] Yard Operator at 05/03/2024 2:47 PM EDT documented in this encounter Plan of Treatment Upcoming Encounters Date Type Department Care Team (Latest Contact Info) Description 05/09/2024 1:00 PM EDT Office Visit [facility] [address] [place] [id number] Velasquez Valencia MD [address] [place] [address] 05/09/2024 2:30 PM EDT Office Visit Pharmacy, [place] [address] [place] [address] [facility] [address] [facility] [place] [address] 08/02/2024 11:06 AM EDT Hospital Encounter OR [facility], Operating Room, [facility] - 4th Floor [address] [place] [address] Belen Jones, DO [address] [place] [address] 08/02/2024 11:06 AM EDT - 08/02/2024 11:50 AM EDT Surgery OR [facility], Operating Room, [facility] - 4th Floor [address] [place] [address] Belen Jones, DO [address] [place] [address] ESOPHAGOGASTRODUODENOSCOPY (EGD), FLEXIBLE, TRANSORAL, ENDOSCOPIC ULTRASOUND Scheduled Procedures Name Priority Associated Diagnoses Date/Ti [...] 07/09/2023, 0 03/07/2021, 11/27/2019, Additional history exists HbA1c 07/16/2024 01/14/2024, 11/19, 10/27/2023, Additional history exists Diabetic Eye Exam 07/28/2024 07/28/2023, , 03/07/2021, Additional history exists Albumin/Creatinine Ratio 01/13/2025 024, [...] this encounter Medical Devices Implanted Type Area Perianesthesia Manager Device Identifier Shelf Expiration Date Model / Serial / Lot Suture Gackle Dbl Load 4.75mm - [id number] Implanted:Qty: 1 on 12/01/2019 by Judith Condon, DO at OR [facility] Right: Shoulder [employer] 07/17/2021 AR-2324BCT -2 / / [id number] Suture Gackle Dbl Load 5.5mm - [id number] Implanted:Qty: 1 on 12/01/2019 by Judith Condon DO at OR [facility] Right: Shoulder [employer] 09/16/2021 AR-2323BCT -2 / / [id number] documented as of this encounter Advance Directives [...] Directives occurred with: Not Discussed Care Teams Firearms Sales Associate Relationship Specialty Start Date End Date Velasquez Valencia MD [address] [place] [address] PCP - General Family Medicine 09/09/22 documented as of this encounter
--- OUTSIDE RECORDS SUMMARY | 2024-07-14 04:43 | External Medical Summary ---
Author Name Unknown Address Unknown Organization [id number]:[facility] - [address] [facility] [place] [address] Laboratory Report Ordering Provider Test Date Status CHRIST DUFFY 05/09/2024 13:59:48 Final Observation Date Value Abnormality Reference (Units ) Status SYNC LEUKOCYTES IN BLOOD BY AUTOMATED COUNT 05/09/2024 13:59:48 6.84 4.00-10.80 (K/uL) Final Segs 05/09/2024 13:59:48 50.8 40.0-75.0 (%) Final Lymphs % 05/09/2024 13:59:48 29.1 18.0-42.0 (%) Final Monos 05/09/2024 13:59:48 10.8 1.0-11.0 (%) Final Eosinophils 05/09/2024 13:59:48 5.8 0.0-6.0 (%) Final Basos 05/09/2024 13:59:48 0.7 0.0-2.0 (%) Final Immature Granulocyte, Percent 05/09/2024 13:59:48 2.8 Above high normal 0.0-2.0 (%) Final Absolute Segs 05/09/2024 13:59:48 3.47 1.80-7.70 (K/uL) Final Lymphs, absolute 05/09/2024 13:59:48 1.99 1.00-4.80 (K/ul) Final Monos, Abs 05/09/2024 13:59:48 0.74 0.00-1.10 (K/uL) Final Eos, Abs 05/09/2024 13:59:48 0.40 0.00-0.70 (K/uL) Final Basos, Abs 05/09/2024 13:59:48 0.05 0.00-0.20 (K/uL) Final Immature Granulocytes, Number 05/09/2024 13:59:48 0.19 0.00-0.20 (K/uL) Final Performing Location LABORATORY [facility] [place] - [address] [facility] [address]
--- OUTSIDE RECORDS SUMMARY | 2024-07-14 04:43 | External Medical Summary | Summary of Care ---
Author Name Unknown Organization [facility] Address [address] [facility] [address] Phone [phone] Care Team Providers Care Lunchroom Operator Name Role Phone Velasquez Valencia MD Primary Care Provider +1- [phone] Reason for Visit * Reason Onset Date Comments Pre Cert/Prior Auth 05/03/2024 Encounter Details Date Type Department Care Team (Late st Contact Info) Description 05/03/2024 Telephone [facility] [address] [place] [address] Velasquez Valencia MD [address] [place] [address] Pre Cert/Prior Auth Allergies Active Allergy Reactions Criticality Noted Date [...] DAY 180 Tablet 1 01/08/2024 Active Tosb SolEllear 300 UNIT/ML Subcutaneous Solution [...] IM 11/04/2009 Pneumococcal Conjugate Vacci ne, 20-valent ([id number]) 07/09/2023 Pneumococcal Polysaccharide PPV23 (Pneumovax) 11/03/2015,02/09/2006 Seasonal [...] No 04/19/2024 Does the household have a rustlar source of income? (Household - for ages [...] Encounter - Garret Webster MED ASSIST - 05/03/2024 8:42 AM EDT Received DME orders. Printed out recent office visit. [facility]. documented in this encounter Plan of Treatment Upcoming Encounters Date Type Department Care Team (Latest Contact Info) Description 05/09/2024 1:00 PM EDT Office Visit [facility] [address] [place] [facility] [place] [address] Velasquez Valencia MD [address] [place] [address] 05/09/2024 2:30 PM EDT Office Visit Pharmacy, [place] [address] [place] [address] [place] [facility] [address] [place] [address] 08/02/2024 11:06 AM EDT Hospital Encounter OR [facility], Operating Room, [facility] - 4th Floor [address] [place] [address] Belen Jones, DO [address] [place] [address] 08/02/2024 11:06 AM EDT - 08/02/2024 11:50 AM EDT Surgery OR [facility], Operating Room, [facility] - 4th Floor [address] [place] [address] Belen Jones, DO [address] [place] [address] ESOPHAGOGASTRODUODENOSCOPY (EGD), FLEXIBLE, TRANSORAL, ENDOSCOPIC ULTRASOUND Scheduled Procedures Name Priority Associated Diagnoses Date/Ti nm ESOPHAGOGASTRODUODENOSCOPY ( EGD), FLEXIBLE, TRANSORAL, ENDOSCOPIC ULTRASOUND [...] this encounter Medical Devices Implanted Type Area Regulatory Consultant Device Identifier Shelf Expiration Date Model / Serial / Lot Suture Cuttyhunk Dbl Load 4.75mm - [id number] Implanted:Qty: 1 on 12/01/2019 by Judith Condon DO at OR [facility] Right: Shoulder [employer] 07/17/2021 AR-2324BCT -2 / / [id number] Suture Cuttyhunk Dbl Load 5.5mm - [id number] Implanted:Qty: 1 on 12/01/2019 by Judith Condon DO at OR [facility] Right: Shoulder [employer] 09/16/2021 AR-2323BCT -2 / / [id number] documented as of this encounter Advance Directives [...] Directives occurred with: Not Discussed Care Teams Lunchroom Operator Relationship Specialty Start Date End Date Velasquez Valencia MD [address] [facility] [place] [address] PCP - General Family Medicine 09/09/22 documented as of this encounter
--- OUTSIDE RECORDS SUMMARY | 2024-07-14 04:43 | External Medical Summary ---
Author Name Unknown Address Unknown Organization K01:[facility]ORATORY [facility] - [facility] [address] [facility] [address] Laboratory Report Ordering Provider Test Date Status CHRIST DUFFY 05/09/2024 13:59:48 Final Observation Date Value Abnormality Reference (Units ) Status WBC, Total 05/09/2024 13:59:48 6.84 4.00-10.80 (K/uL) Final RBC 05/09/2024 13:59:48 4.07 4.50-5.25 (M/uL) Final Hemoglobin 05/09/2024 13:59:48 10.6 Below low normal 14.0-16.8 (g/dL) Final HCT 05/09/2024 13:59:48 33.8 Below low normal 40.0-48.4 (%) Final MCV 05/09/2024 13:59:48 83.0 82.0-99.5 (fL) Final MCH 05/09/2024 13:59:48 26.0 27.0-34.0 (pg) Final MCHC 05/09/2024 13:59:48 31.4 32.0-36.0 (g/dL) Final RDW 05/09/2024 13:59:48 17.3 11.5-15.5 (%) Final Platelets 05/09/2024 13:59:48 252 140-400 (K/uL) Final MPV 05/09/2024 13:59:48 9.4 6.6-11.1 (fL) Final Nucleated erythrocytes/100 leukocytes [Ratio] in Blood by Automated count 05/09/2024 13:59:48 0 <=0 (/100 WBCs) Final Performing Location LABORATORY [facility] - [facility] [place] [address]
--- OUTSIDE RECORDS SUMMARY | 2024-07-14 04:43 | External Medical Summary ---
Author Name Unknown Address Unknown Organization K01:[facility] - [address] [facility] [place] [address] Laboratory Report Ordering Provider Test Date Status TATICHRIST 05/09/2024 13:59:48 Final Observation Date Value Abnormality Reference (Units ) Status BUN 05/09/2024 13:59:48 23 Above high normal 6-20 (mg/dL) Final Creatinine 05/09/2024 13:59:48 1.0 0.6-1.2 (mg/dL) Final Glomerular filtration rate/1.73 sq M.predicted [Volume Rate/Area] in Serum, Plasma or Blood by Creatinine-based formula (CKD-EPI) 05/09/2024 13:59:48 >90 >=60 (mL/min) Final eGFR is calculated based on the CKD-EPI 2020 equation. Sodium 05/09/2024 13:59:48 138 135-146 (m mol/L) Final Potassium 05/09/2024 13:59:48 4.8 3.5-5.1 (m mol/L) Final Cl 05/09/2024 13:59:48 100 98-107 (mm ol/L) Final CO2 05/09/2024 13:59:48 26 22-32 (mmo l/L) Final Anion gap 05/09/2024 13:59:48 12 7-15 (mmol /L) Final Glucose 05/09/2024 13:59:48 182 Above high normal 70 -120 (mg/dL) Final Albumin 05/09/2024 13:59:48 4.2 3.8-5.0 (g /dL) Final AST (Aspartate aminotransferase) 05/09/2024 13:59:48 12 10-50 (U/L) Fin al Alk Phos 05/09/2024 13:59:48 86 35-130 (U/ L) Final Bilirubin, Total 05/09/2024 13:59:48 <0.2 <=1 .2 (mg/dL) Final Calcium 05/09/2024 13:59:48 9.7 8.4-10.2 ( mg/dL) Final Protein 05/09/2024 13:59:48 6.7 6.0-8.3 (g /dL) Final ALT (Alanine aminotransferase) 05/09/2024 13:59:48 18 10-50 (U/L) Ethan gillette Performing Location LABORATORY [facility] - [facility] [address] [facility] [place] [address]
--- OUTSIDE RECORDS SUMMARY | 2024-07-14 04:43 | External Medical Summary | Summary of Care ---
Author Name Unknown Organization [facility] Address [address] [place] [address] Phone [phone] Care Team Providers Care Sports Commentator Name Role Phone Tati Polo MD Primary Care Provider +1- [phone] Reason for Visit * Reason Comments eRx-Medication Refill Encounter Details Date Type Department Care Team (Late st Contact Info) Description 05/03/2024 Refill [facility] [address] [place] [address] Tati Polo MD [address] [place] [address] Neuropathy Allergies Active Allergy Reactions Criticality Noted Date Comments Cefaclor Unknown 07/26/2018 As child Empagliflozin Other (Please comment) 05/16/2021 DKA with hospitalization Nsaids High 04/19/2019 Gastric problems Other Reaction(s): gastroparesis, kidney problems, use with caution : hx esophagus damage documented as of this encounter (statuses as of 05/04/2024) Medications Medication Sig Dispensed Refills Start Date [...] 115 units 120 mL 4 4 Active Pioglitazone HCl 45 MG Oral Tablet (Actos)Indication [...] FOUR TIMES DAILY 360 Capsule 4 Active Movantik 25 MG Oral Tablet (Naloxegol Oxalate) take 1 tablet by mouth in the morning 30 Tablet 4 Active Atorvastatin Calcium 20 MG Oral Tablet (Lipitor) Take 1 Tablet by mouth in the morning. 90 Tablet 3 4 Active Gabapentin 100 MG Oral Capsule (Neurontin)Indica tions:Neuropathy TAKE 2 CAPSULES BY MOUTH EVERY 12 HOURS 120 Capsule 4 Active Gabapentin 100 MG Oral Capsule (Neurontin)Indica tions:Neuropathy TAKE ONE CAPSULE BY MOUTH IN THE MORNING AND TWO CAPSULES AT BEDTIME 270 Capsule 1 4 05/04/20 24 Discontinued documented as of this encounter (statuses as of 05/04/2024) Active Problems Problem Noted Date Diagnosed Date [...] as of this encounter (statuses as of 05/04/2024) Resolved Problems Problem Noted Date Diagnosed Date [...] as of this encounter (statuses as of 05/04/2024) Immunizations Name Administration Dates Next Due COVID-19 mRNA, LNP-s, No Pre serve, 2-Dose Series (Pfizer) 10/21/2021,03/01/2021,02/07/2021 H1N1 2009 Influenza, IM 11/04/2009 Pneumococcal Conjugate Vacci ne, 20-valent ([id number]) 07/09/2023 Pneumococcal Polysaccharide PPV23 (Pneumovax) 11/03/2015,02/09/2006 Seasonal [...] Telephone Encounter - Tati Polo MD - 05/04/2024 8:50 AM EDTSigned Prescriptions: Disp Refills Gabapentin 100 MG Oral Capsule (Neurontin) 120 Ca*0 Sig: TAKE 2 CAPSULES BY MOUTH EVERY 12 HOURSAuthorizing Provider: TATI POLO * Telephone Encounter - Radha Fair LPN - 05/04/2024 8:43 AM EDTPending Prescriptions: Disp Refills Gabapentin 100 MG Oral Capsule [Pharmacy M*120 Ca*0 Sig: TAKE 2 CAPSULES BY MOUTH EVERY 12 HOURS * Telephone Encounter - Ashlee Teran - 05/03/2024 7:11 PM EDTPending Prescriptions: Disp Refills Gabapentin 100 MG Oral Capsule [Pharmacy M*120 Ca*0 Sig: TAKE 2CAPSULES BY MOUTH EVERY 12 HOURS documented in this encounter Plan of Treatment Upcoming Encounters Date Type Department Care Team (Latest Contact Info) Description 05/09/2024 1:00 PM EDT Office Visit Family [facility] [place] [address] [address] Tati Polo MD [address] [place] [address] 05/09/2024 2:30 PM EDT Office Visit Pharmacy, [place] [address] [address] [place], [facility] [address] [address] 08/02/2024 11:06 AM EDT Hospital Encounter OR [facility], Operating Room, [facility] - 4th Floor [address] [place] [address] Belen Jones DO [address] [place] [address] 08/02/2024 11:06 AM EDT - 08/02/2024 11:50 AM EDT Surgery OR [facility], Operating Room, [facility] - 4th Floor [address] [place] [address] Belen Jones DO [address] [place] [address] ESOPHAGOGASTRODUODENOSCOPY (EGD), FLEXIBLE, TRANSORAL, ENDOSCOPIC ULTRASOUND Scheduled [...] Cancer Screening 02/21/2029 Lipid Panel 04/11/2029 04/11/2024, 2 03/2024, 01/05/2023, Additional history exists Pneumococcal Vaccine: Pediatrics [...] this encounter Medical Devices Implanted Type Area Funeral Home Director Device Identifier Shelf Expiration Date Model / Serial / Lot Suture [place] Dbl Load 4.75mm - [id number] Implanted:Qty: 1 on 12/01/2019 by Judith Condon DO at OR [facility] Right: Shoulder [employer] 07/17/2021 AR-2324BCT -2 / / [id number] Suture [place] Dbl Load 5.5mm - [id number] Implanted:Qty: 1 on 12/01/2019 by Judith Condon DO at OR [facility] Right: Shoulder [employer] 09/16/2021 AR-2323BCT -2 / / [id number] documented as of this encounter Visit Diagnoses [...] Directives occurred with: Not Discussed Care Teams Sports Commentator Relationship Specialty Start Date End Date Tati Polo MD [address] [facility] [place] [address] PCP - General Family Medicine 09/09/22 documented as of this encounter
--- OUTSIDE RECORDS SUMMARY | 2024-07-14 04:43 | External Medical Summary ---
Author Name Unknown Address Unknown Organization K01:[facility] - [address] [facility] [address] Laboratory Report Ordering Provider Test Date Status CHRIST DUFFY 05/09/2024 13:59:48 Final Observation Date Value Abnormality Reference (Units ) Status HbA1C 05/09/2024 13:59:48 8.6 Above high normal 4. 0-5.6 (%) Final The use of HbA1c to monitor glycemic status is based on normal hemoglobin and HbA composition. This test should not be used in patients with abnormal hemoglobin that affects the half life of the red blood cell or the in vivo glycation rates. Glucose, estimated average 05/09/2024 13:59:48 200 Above high normal <126 (mg/dL) Ethan gillette Performing Location [facility] [place] - [address] [facility] [address]
--- OUTSIDE RECORDS SUMMARY | 2024-07-14 04:44 | External Medical Summary | Summary of Care ---
Author Name Unknown Organization [facility] Address [address] [place] [address] Phone [phone] Care Team Providers Care [employer] Supervisor Name Role Phone Velasquez Valencia MD Primary Care Provider +1- [phone] Reason for Visit * Reason Onset Date Comments Procedure 05/01/2024 Encounter Details Date Type Department Care Team (Late st Contact Info) Description 05/01/2024 Telephone Gastroenterology, [facility] [address] [address] Sehlley Parsons PA-C [address] [place] [address] Procedure Allergies Active Allergy Reactions Criticality Noted Date Comments Cefaclor Unknown 07/26/2018 As child Empagliflozin Other (Please comment) 05/16/2021 DKA with hospitalization Nsaids High 04/19/2019 Gastric problems Other Reaction(s): gastroparesis, kidney problems, use with caution : hx esophagus damage documented as of this encounter (statuses as of 05/01/2024) Medications Medication Sig Dispensed Refills Start Date [...] goal of less than 7.0% ([facility]) Inject 32 units with breakfast 22 units with lunch and 22 units with supper plus CF of 1:12 over 150. Max daily dose of 115 units 120 mL 4 02/16/2024 Active Pioglitazone HCl 45 MG Oral Tablet (Actos)Indications :Type 2 diabetes mellitus with hemoglobin A1c goal of less than 7.0% ([facility]) Take 1 Tablet by mouth [...] as of this encounter (statuses as of 05/01/2024) Active Problems Problem Noted Date Diagnosed Date [...] as of this encounter (statuses as of 05/01/2024) Resolved Problems Problem Noted Date Diagnosed Date [...] as of this encounter (statuses as of 05/01/2024) Immunizations Name Administration Dates Next Due COVID-19 mRNA, LNP-s, No Pre serve, 2-Dose Series (Pfizer) 10/21/2021,03/01/2021,02/07/2021 H1N1 2009 Influenza, IM 11/04/2009 Pneumococcal Conjugate Vacci ne, 20-valent ([id number]) 07/09/2023 Pneumococcal Polysaccharide PPV23 (Pneumovax) 11/03/2015,02/09/2006 Seasonal [...] No 04/19/2024 Does the household have a [facility] source of income? (Household - for ages [...] encounter Miscellaneous Notes * Telephone Encounter - Nini Pereira OSA - 05/01/2024 4:45 PM EDT Eus 08/02 at [facility] OR. * Telephone Encounter - Shelley Parsons PA-C - 05/01/2024 4:15 PM EDT Please see tele encounter from 12/13/23 - patient still needs an EUS to be set up for evaluation of pancreatitis. Order was placed 12/13/23 and is still active. Thank you. Patient agreeable to schedule - please call. MARIBELI Dr. Olivares - sorry this had not yet been scheduled - will make sure it gets scheduled soon. Thank you documented in this encounter Plan of Treatment Upcoming Encounters Date Type Department Care Team (Latest Contact Info) Description 05/09/2024 1:00 PM EDT Office Visit [place] [address] [place] [address] Velasquez Valencia MD [address] [place] [address] 05/09/2024 2:30 PM EDT Office Visit Pharmacy, [place] [address] [place] [place] [address] [place], [facility] [address] [place] [address] 08/02/2024 11:06 AM EDT Hospital Encounter OR [facility], Operating Room, [facility] - 4th Floor [address] [place] [address] [place] [address] Belen Jones, DO [address] [place] [address] 08/02/2024 11:06 AM EDT - 08/02/2024 11:50 AM EDT Surgery OR [facility], Operating Room, [facility] - 4th Floor [address] [place] [address] Belen Jones, DO [address] [place] [address] ESOPHAGOGASTRODUODENOSCOPY (EGD), FLEXIBLE, TRANSORAL, ENDOSCOPIC ULTRASOUND Scheduled Procedures Name Priority Associated Diagnoses Date/Ti sc ESOPHAGOGASTRODUODENOSCOPY ( EGD), FLEXIBLE, TRANSORAL, ENDOSCOPIC ULTRASOUND [...] 11/27/2019, Additional history exists HbA1c 07/16/2024 01/14/2024, 02/03/2024, 10/27/2023, Additional history exists Diabetic Eye Exam [...] this encounter Medical Devices Implanted Type Area Auto Travel Counselor Device Identifier Shelf Expiration Date Model / Serial / Lot Suture [place] Dbl Load 4.75mm - [id number] Implanted:Qty: 1 on 12/01/2019 by Judith Condon DO at OR [facility] Right: Shoulder [employer] 07/17/2021 AR-2324BCT -2 / / [id number] Suture [place] Dbl Load 5.5mm - [id number] Implanted:Qty: 1 on 12/01/2019 by Rahmi, Hithem, DO at OR [facility] Right: Shoulder [employer] 09/16/2021 AR-2323BCT -2 / / [id number] documented as of this encounter Advance Directives [...] Directives occurred with: Not Discussed Care Teams [employer] T[employer] Supervisor Relationship Specialty Start Date End Date Velasquez Valencia MD [address] [facility] [place] [address] PCP - General Family Medicine 09/09/22 documented as of this encounter
--- OUTSIDE RECORDS SUMMARY | 2024-07-14 04:44 | External Medical Summary | Summary of Care ---
Author Name Unknown Organization [facility] Address [address] [place] [address] Phone [phone] Care Team Providers Care Laborer Tan House Name Role Phone Tati Polo MD Primary Care Provider +1- [phone] Reason for Visit * Reason Comments eRx-Medication Refill Encounter Details Date Type Department Care Team (Late st Contact Info) Description 04/26/2024 Refill [facility] [address] [place] [address] Tati Ploo MD [address] [place] [address] Allergies Active Allergy Reactions Criticality Noted Date Comments Cefaclor Unknown 07/26/2018 As child Empagliflozin Other (Please comment) 05/16/2021 DKA with hospitalization Nsaids High 04/19/2019 Gastric problems Other Reaction(s): gastroparesis, kidney problems, use with caution : hx esophagus damage documented as of this encounter (statuses as of 04/28/2024) Medications Medication Sig Dispensed Refills Start Date [...] Active Pioglitazone HCl 45 MG Oral Tablet (Actos)Indicatio [...] it has been 80 Tablet 4 Active Gabapentin 100 MG Oral Capsule (Neurontin)Indic ations:Neuropath y TAKE ONE CAPSULE BY MOUTH IN THE MORNING AND TWO CAPSULES AT BEDTIME 270 Capsule 1 4 Active Alum & Mag Hydroxide-Simeth 400-400-40 [...] the morning. 90 Tablet 3 4 Active Atorvastatin Calcium 20 MG Oral Tablet (Lipitor) Take 1 Tablet by mouth in the morning. 90 Tablet 3 3 04/28/20 24 Discontinued(Re fill) Movantik 25 MG Oral Tablet (Naloxegol Oxalate) take 1 tablet by mouth in the morning 30 Tablet 4 04/27/20 24 Discontinued documented as of this encounter (statuses as of 04/28/2024) Active Problems Problem Noted Date Diagnosed Date [...] as of this encounter (statuses as of 04/28/2024) Resolved Problems Problem Noted Date Diagnosed Date [...] as of this encounter (statuses as of 04/28/2024) Immunizations Name Administration Dates Next Due COVID-19 mRNA, LNP-s, No Pre serve, 2-Dose Series (Pfizer) 10/21/2021,03/01/2021,02/07/2021 H1N1 2009 Influenza, IM 11/04/2009 Pneumococcal Conjugate Vacci ne, 20-valent ([id number]) 07/09/2023 Pneumococcal Polysaccharide PPV23 (Pneumovax) 11/03/2015,02/09/2006 Seasonal [...] Telephone Encounter - Tati Polo MD - 04/28/2024 5:16 PM EDTSigned Prescriptions: Disp Refills Movantik 25 MG Oral Tablet (Naloxegol Oxal*30 Tab*0 Sig: take 1 tablet by mouth in the morningAuthorizing Provider: TATI POLO Atorvastatin Calcium 20 MG Oral Tablet (Li*90 Tab*3 Sig: Take 1 Tablet by mouth in the morning.Authorizing Provider: TATI POLO * Addendum Note - Tati Polo MD - 04/28/2024 5:16 PM EDTAddended by: TATI POLO on: 04/28/2024 05:16 PM Modules accepted: Orders * Addendum Note - Keturah Escalante LPN - 04/28/2024 2:54 PM EDTAddended by: KETURAH ESCALANTE on: 04/28/2024 02:54 PM Modules accepted: Orders * Telephone Encounter - Tati Polo MD - 04/27/2024 3:51 PM EDTSigned Prescriptions: Disp Refills Movantik 25 MG Oral Tablet (Naloxegol Oxal*30 Tab*0 Sig: take 1 tablet by mouth in the morningAuthorizing Provider: TATI POLO * Telephone Encounter - Keturah Escalante LPN - 04/27/2024 12:15 PM EDTPending Prescriptions: Disp Refills Movantik 25 MG Oral Tablet [Pharmacy Med N*30 Tab*0 Sig: take 1 tablet by mouth in the morning * Telephone Encounter - Ashlee Teran - 04/26/2024 1:43 PM EDTPending Prescriptions: Disp Refills Movantik 25 MG Oral Tablet [Pharmacy Med N*30 Tab*0 Sig: take 1tablet by mouth in the morning documented in this encounter Plan of Treatment Upcoming Encounters Date Type Department Care Team (Late st [facility]) Description 05/09/2024 1:00 PM EDT Office Visit [address] [place] [id number] Tati Polo MD [address] [place] [address] 05/09/2024 2:30 PM EDT Office Visit Pharmacy, [place] [address] [place] [address] [facility] [address] [place] [address] Scheduled Procedures Name Priority Associated Diagnoses Date/Ti me COLONOSCOPY FLEXIBLE PROXIMA L DIAGNOSTIC Recall Screening [...] this encounter Medical Devices Implanted Type Area Tack Cleaner Device Identifier Shelf Expiration Date Model / Serial / Lot Suture [place] Dbl Load 4.75mm - [id number] Implanted:Qty: 1 on 12/01/2019 by Judith Condon DO at OR [facility] Right: Shoulder [employer] 07/17/2021 AR-2324BCT -2 / / [id number] Suture [place] Dbl Load 5.5mm - [id number] Implanted:Qty: 1 on 12/01/2019 by Judith Condon DO at OR [facility] Right: Shoulder [employer] 09/16/2021 AR-2323BCT -2 / / [id number] documented as of this encounter Advance Directives [...] Directives occurred with: Not Discussed Care Teams Laborer Tan House Relationship Specialty Start Date End Date Tati Polo MD [address] [place] [address] PCP - General Family Medicine 09/09/22 documented as of this encounter
--- OUTSIDE RECORDS SUMMARY | 2024-07-14 04:44 | External Medical Summary | Summary of Care ---
Author Name Unknown Organization [facility] Address [address] [facility] [address] Phone [phone] Care Team Providers Care Cook Barbecue Name Role Phone Velasquez Polo MD Primary Care Provider +1- [phone] Reason for Visit * Reason Comments eRx-Medication Refill Encounter Details Date Type Department Care Team (Late st Contact Info) Description 04/26/2024 Refill [facility] [address] [place] [address] Velasquez Polo MD [address] [place] [address] Allergies Active Allergy Reactions Criticality [...] the morning. 90 Tablet 3 3 Active Atorvastatin Calcium 20 [...] A DAY 180 Tablet 1 4 Active Timmy Hitchcockar 300 UNIT/ML Subcutaneous Solution Pen-injector (Insulin Glargine [...] in the morning 30 Tablet 4 Active Movantik 25 MG Oral Tablet [...] IM 11/04/2009 Pneumococcal Conjugate Vacci ne, 20-valent ([id number]) 07/09/2023 Pneumococcal Polysaccharide PPV23 (Pneumovax) 11/03/2015,02/09/2006 Seasonal [...] encounter Miscellaneous Notes * Addendum Note - Radha Escalante LPN - 04/28/2024 2:54 PM EDTAddended by: RADHA ESCALANTE on: 04/28/2024 02:54 PM Modules accepted: Orders * Telephone Encounter - Velasquez Polo MD - 04/27/2024 3:51 PM EDTSigned Prescriptions: Disp Refills Movantik 25 MG Oral Tablet (Naloxegol Oxal*30 Tab*0 Sig: take 1 tablet by mouth in the morningAuthorizing Provider: VELASQUEZ POLO * Telephone Encounter - Radha Escalante LPN - 04/27/2024 12:15 PM EDTPending [...] 05/09/2024 1:00 PM EDT Office Visit Family [place] [address] [place] [address] Velasquez Polo MD [address] [place] [address] 05/09/2024 2:30 PM EDT Office Visit Pharmacy, [place] [address] [place] [address] [place], [facility] [address] [place] [address] Scheduled Procedures Name Priority Associated Diagnoses Date/Ti [...] 02/07/2021 DISCUSS TOBACCO CESSATION (REFER TO SMARTSET #6408) 10/16/2023 10/16/2022 Zoster Vaccines (1 of 2) [...] this encounter Medical Devices Implanted Type Area Ship Loader Device Identifier Shelf Expiration Date Model / Serial / Lot Suture [place] Dbl Load 4.75mm - [id number] Implanted:Qty: 1 on 12/01/2019 by Judith Condon DO at OR [facility] Right: Shoulder [employer] 07/17/2021 AR-2324BCT -2 / / [id number] Suture [place] Dbl Load 5.5mm - [id number] Implanted:Qty: 1 on 12/01/2019 by Judith Condon DO at OR [facility] Right: Shoulder [employer] 09/16/2021 AR-2323BCT -2 / / [id number] documented as of this encounter Advance Directives [...] Directives occurred with: Not Discussed Care Teams Cook Barbecue Relationship Specialty Start Date End Date Velasquez Polo MD [address] [place] [address] PCP - General Family Medicine 09/09/22 documented as of this encounter
--- OUTSIDE RECORDS SUMMARY | 2024-07-14 04:44 | External Medical Summary | Summary of Care ---
Author Name Unknown Organization [facility] Address [address] [place] [address] Phone [phone] Care Team Providers Care Horticultural Services Supervisor Name Role Phone Tati Polo MD Primary Care Provider +1- [phone] Reason for Visit * Reason Onset Date Comments Order Request 04/25/2024 Encounter Details Date Type Department Care Team (Late st Contact Info) Description 04/25/2024 Telephone [facility] [address] [place] [address] Emily Tena, RN [address] [place] [address] Order Request Allergies Active Allergy Reactions Criticality [...] of water. 510 g 5 4 Active Atorvastatin Calcium 20 MG Oral [...] IM 11/04/2009 Pneumococcal Conjugate Vacci ne, 20-valent ([id number]) 07/09/2023 Pneumococcal Polysaccharide PPV23 (Pneumovax) 11/03/2015,02/09/2006 Seasonal [...] No 04/19/2024 Does the household have a [facility] source [facility]? (Household - [...] Telephone Encounter - Mel Walker LPN - 05/01/2024 12:42 PM EDT Faxed order for Bedside commode. Case management do you have any suggestions? * Addendum Note - Tati Polo MD - 04/28/2024 5:21 PM EDTAddended by: TATI POLO on: 04/28/2024 05:21 PM Modules accepted: Orders * Telephone Encounter - Tati Polo MD - 04/28/2024 5:19 PM EDT DME sent for the bedside commode printed. Can fax. I do not know how they get assistance for a wheelchair rental. Maybe case management can help? * Addendum Note - Amador Azul LPN - 04/28/2024 11:11 AM EDTAddended by: AMADOR AZUL on: 04/28/2024 11:11 AM Modules accepted: Orders * Telephone Encounter - Amador Azul LPN - 04/28/2024 11:04 AM EDT Pt's EC Ni is calling to check on the status of DME. Made her aware that this was faxed to [facility] as of today. Reports that the pt needs a bariatric bedside toilet. States that that pt's current wheelchair is breaking and it's going to cost them $117 to rent a wheelchair and leg rest from [facility]. Would like to know how to get assistance with this charge- will need wheelchair rental [place]. DME pended. Please advise. * Telephone Encounter - Emily Wang MED ASSIST - 04/28/2024 10:05 AM EDT Faxed the order and appropriate paperwork to [facility]. * Telephone Encounter - Tati Polo MD - 04/27/2024 4:32 PM EDT DME printed. Can fax. Can include my note from 04/14/24. * Telephone Encounter - Emily Tena RN - 04/25/2024 3:25 PM EDT T/c from patient's GF. Pt was d/c from Rehab but left AMA and did not get DME set up before he left. GF purchased a wheelchair, shower chair and ramp out of pocket. States that the wheelchair that they got is not big enough and the wheels are starting to break. Needs a sturdier chair. Should be able to get one covered through insurance. Will need sent to [facility]. Pt has a hospital f/u appointment scheduled for 05/09. Please discuss DME at this visit. Thank you in advanced, Emily Mandujano, RN [facility] Nurse Dock Operations Supervisor Ronnie Cervantes (covering CM) documented in this encounter Plan of Treatment Upcoming Encounters Date Type Department Care Team (Late st Contact Info) Description 05/09/2024 1:00 PM EDT Office Visit [place] [address] [facility] [place] [address] Tati Polo MD [address] [place] [facility] [place] [address] 05/09/2024 2:30 PM EDT Office Visit Pharmacy, [place] [address] [place] [address] [place] [facility] [address] [place] [address] Scheduled Procedures Name Priority Associated Diagnoses Date/Ti [...] 11/27/2019, Additional history exists HbA1c 07/16/2024 01/14/2024, 0203/2024, 10/27/2023, Additional history exists Diabetic Eye Exam [...] this encounter Medical Devices Implanted Type Area Water Plant Maintenance Mechanic Device Identifier Shelf Expiration Date Model / Serial / Lot Suture [place] Dbl Load 4.75mm - [id number] Implanted:Qty: 1 on 12/01/2019 by Judith Condon DO at OR [facility] Right: Shoulder [employer] 07/17/2021 AR-2324BCT -2 / / [id number] Suture [place] Dbl Load 5.5mm - [id number] Implanted:Qty: 1 on 12/01/2019 by Judith Condon DO at OR [facility] Right: Shoulder [employer] 09/16/2021 AR-2323BCT -2 / / [id number] documented as of this encounter Visit Diagnoses Diagnosis Hx of BKA, left (HCC)- Primary documented in this encounter Advance Directives * [...] Directives occurred with: Not Discussed Care Teams Horticultural Services Supervisor Relationship Specialty Start Date End Date Tati Polo MD [address] [place] [address] PCP - General Family Medicine 09/09/22 documented as of this encounter
--- OUTSIDE RECORDS SUMMARY | 2024-07-14 04:44 | External Medical Summary | Summary of Care ---
Author Name Unknown Organization [facility] Address [address] [place] [place] [address] Phone [phone] Care Team Providers Care Real Time Analyst Name Role Phone Velasquez Valencia MD Primary Care Provider +1- [phone] Reason for Visit * Reason Onset Date Comments Procedure 05/01/2024 Encounter Details Date Type Department Care Team (Late st Contact Info) Description 05/01/2024 Telephone Gastroenterology, [facility] [address] [address] Shelley Parsons PA-C [address] [place] [address] Procedure Allergies Active Allergy Reactions Criticality [...] than 7.0% ([facility]) Inject 32 units with breakfast 22 units with lunch and 22 units with supper plus CF of 1:12 over 150. Max daily dose of 115 units 120 mL 4 02/16/2024 Active Pioglitazone HCl 45 MG Oral Tablet (Actos)Indications :Type 2 diabetes mellitus with hemoglobin A1c goal of less than 7.0% ([facility]) Take 1 Tablet by mouth in the [...] IM 11/04/2009 Pneumococcal Conjugate Vacci ne, 20-valent ([id number]) 07/09/2023 Pneumococcal Polysaccharide PPV23 (Pneumovax) 11/03/2015,02/09/2006 Seasonal [...] Miscellaneous Notes * Telephone Encounter - Shelley Parsons PA-C [...] Description 05/09/2024 1:00 PM EDT Office Visit [facility] [address] [place] [address] Velasquez Valencia MD [address] [place] [address] 05/09/2024 2:30 PM EDT [facility] [address] [place] [address] [facility] [address] [place] [address] Scheduled Procedures Name Priority Associated Diagnoses Date/Ti [...] encounter Medical Devices Implanted Type Area Contract Graphic Designer Device Identifier Shelf Expiration Date Model / Serial / Lot Suture [place] Dbl Load 4.75mm - [id number] Implanted:Qty: 1 on 12/01/2019 by Judith Condon DO at OR [facility] Right: Shoulder [employer] 07/17/2021 AR-2324BCT -2 / / [id number] Suture [place] Dbl Load 5.5mm - [id number] Implanted:Qty: 1 on 12/01/2019 by Judith Condon, at OR [facility] Right: Shoulder [employer] 09/16/2021 AR-2323BCT -2 / / [id number] documented as of this encounter Advance Directives [...] Directives occurred with: Not Discussed Care Teams Real Time Analyst Relationship Specialty Start Date End Date Velasquez Valencia MD [address] [place] [address] PCP - General Family Medicine 09/09/22 documented as of this encounter
--- OUTSIDE RECORDS SUMMARY | 2024-07-14 04:44 | External Medical Summary | Summary of Care ---
Author Name Unknown Organization [facility] Address [address] [place] [address] Phone [phone] Care Team Providers Care Expanding Machine Operator Name Role Phone Tati Polo MD Primary Care Provider +1- [phone] Reason for Visit * Reason Onset Date Comments Order Request 04/25/2024 Encounter Details Date Type Department Care Team (Late st Contact Info) Description 04/25/2024 Telephone [facility] [address] [place] [address] Emily Tena, RN [address] [place] [address] Order Request Allergies Active Allergy [...] IM 11/04/2009 Pneumococcal Conjugate Vacci ne, 20-valent ([id number]) 07/09/2023 Pneumococcal Polysaccharide PPV23 (Pneumovax) 11/03/2015,02/09/2006 Seasonal [...] No 04/19/2024 Does the household have a [facility] source of income? (Household - for [...] Faxed the order and appropriate paperwork to [facility]. * Telephone Encounter - Tati Polo [...] covered through insurance. Will need sent to [employer]. Pt has a hospital f/u appointment scheduled for 05/09. Please discuss DME at this visit. Thank you in advanced, Emily Mandujano, RN [facility] Nurse Certified Phlebotomy Technician Ronnie Cervantes (covering CM) documented in this encounter Plan of Treatment Upcoming Encounters Date Type Department Care Team (Late st Contact Info) Description 05/09/2024 1:00 PM EDT Office Visit [place] [address] [facility] [place] [address] Tati Polo MD [address] [place] [facility] [place] [address] 05/09/2024 2:30 PM EDT Office Visit Pharmacy, [place] [address] [place] [facility] [place] [address] [facility] [address] [place] [address] Scheduled Procedures Name Priority Associated Diagnoses Date/Ti [...] this encounter Medical Devices Implanted Type Area Correction Officer Head Device Identifier Shelf Expiration Date Model / Serial / Lot Suture [place] Dbl Load 4.75mm - [id number] Implanted:Qty: 1 on 12/01/2019 by Judith Condon DO at OR [facility] Right: Shoulder [employer] 07/17/2021 AR-2324BCT -2 / / [id number] Suture [place] Dbl Load 5.5mm - [id number] Implanted:Qty: 1 on 12/01/2019 by Judith Condon DO at OR [facility] Right: Shoulder [employer] 09/16/2021 AR-2323BCT -2 / / [id number] documented as of this encounter Visit Diagnoses [...] Directives occurred with: Not Discussed Care Teams Expanding Machine Operator Relationship Specialty Start Date End Date Tati Polo MD [address] [place] [address] PCP - General Family Medicine 09/09/22 documented as of this encounter
--- OUTSIDE RECORDS SUMMARY | 2024-07-14 04:44 | External Medical Summary | Summary of Care ---
Author Name Unknown Organization [facility] Address [address] [place] [address] Phone [phone] Care Team Providers Care Industrial Maintenance Repairer Helper Name Role Phone Velasquez Valencia MD Primary Care Provider +1- [phone] Reason for Visit * Reason Onset Date Comments Order Request 04/25/2024 Encounter Details Date Type Department Care Team (Late st Contact Info) Description 04/25/2024 Telephone [facility] [address] [place] [address] Emily Tena, RN [address] [place] [address] Order Request Allergies Active Allergy [...] DAY 180 Tablet 1 4 Active Timmy Resendez 300 UNIT/ML Subcutaneous Solution [...] of water. 510 g 5 4 Active Movantik 25 MG Oral [...] IM 11/04/2009 Pneumococcal Conjugate Vacci ne, 20-valent (Zpczcdo10) 07/09/2023 Pneumococcal Polysaccharide PPV23 (Pneumovax) 11/03/2015,02/09/2006 Seasonal [...] No 04/19/2024 Does the household have a [facility] source of income? (Household - for ages [...] encounter Miscellaneous Notes * Addendum Note - Madison Azul LPN - 04/28/2024 11:11 AM EDTAddended by: MADISON AZUL on: 04/28/2024 11:11 AM Modules accepted: Orders * Telephone Encounter - Madison Azul LPN - 04/28/2024 11:04 AM EDT Pt's EC Ni is calling to check on the status of DME. Made her aware that this was faxed to [employer] as of today. Reports that the pt needs a bariatric bedside toilet. States that that pt's current wheelchair is breaking and it's going to cost them $117 to rent [facility]. Would like to know how to get assistance with this charge- will need wheelchair rental [place]. DME pended. Please advise. * Telephone Encounter - Emily Wang MED ASSIST - 04/28/2024 10:05 AM EDT Faxed the order and appropriate paperwork to [email or web address]. * Telephone Encounter - Velasquez Valencia MD - 04/27/2024 4:32 PM EDT DME [...] covered through insurance. Will need sent to [facility]. Pt has a hospital f/u appointment scheduled for 05/09. Please discuss DME at this visit. Thank you in advanced, Emily Mandujano RN [facility] Nurse Room Clerk Ronnie Cervantes (covering CM) documented in this encounter Plan of Treatment Upcoming Encounters Date Type Department Care Team (Late st Contact Info) Description 05/09/2024 1:00 PM EDT Office Visit [place] [address] [place] [address] Velasquez Valencia MD [address] [place] [address] 05/09/2024 2:30 PM EDT Office Visit Pharmacy, [address] [address] [facility] [address] [place] [address] Scheduled Procedures Name Priority Associated Diagnoses Date/Ti [...] 02/07/2021 DISCUSS TOBACCO CESSATION (REFER TO SMARTSET #3314) 10/16/2023 10/16/2022 Zoster Vaccines (1 of 2) [...] encounter Medical Devices Implanted Type Area Local Area Network Administrator Device Identifier Shelf Expiration Date Model / Serial / Lot Suture [place] Dbl Load 4.75mm - [id number] Implanted:Qty: 1 on 12/01/2019 by Judith Condon, DO at OR [facility] Right: Shoulder [employer] 07/17/2021 AR-2324BCT -2 / / [id number] Suture [place] Dbl Load 5.5mm - [id number] Implanted:Qty: 1 on 12/01/2019 by Judith Condon, DO at OR [facility] Right: Shoulder [employer] 09/16/2021 AR-2323BCT -2 / / [id number] documented as of this encounter Visit Diagnoses [...] Directives occurred with: Not Discussed Care Teams Industrial Maintenance Repairer Helper Relationship Specialty Start Date End Date Velasquez Valencia MD [address] [place] [id number] PCP - General Family Medicine 09/09/22 documented as of this encounter
--- OUTSIDE RECORDS SUMMARY | 2024-07-14 04:44 | External Medical Summary | Summary of Care ---
Author Name Unknown Organization [facility] Address [address] [place] [address] Phone [phone] Care Team Providers Care Forest Fire Lookout Name Role Phone Tati Polo MD Primary Care Provider +1- [phone] Reason for Visit * Reason Onset Date Comments Order Request 04/25/2024 Encounter Details Date Type Department Care Team (Late st Contact Info) Description 04/25/2024 Telephone [facility] [address] [place] [address] Emily Tena, RN [address] [place] [address] Order Request Allergies Active Allergy [...] IM 11/04/2009 Pneumococcal Conjugate Vacci ne, 20-valent (Dgnvajr93) 07/09/2023 Pneumococcal Polysaccharide PPV23 (Pneumovax) 11/03/2015,02/09/2006 Seasonal [...] No 04/19/2024 Does the household have a [facility] source of income? (Household - for [...] her aware that [facility] as of today. Reports that the pt needs a bariatric bedside toilet. States that that pt's current wheelchair is breaking and it's going to cost them $117 to rent a [facility]. Would like to know how to get assistance with this charge- will need wheelchair rental [place]. DME pended. Please advise. * Telephone Encounter - Emily Wang MED ASSIST - 04/28/2024 10:05 AM EDT Faxed the order and appropriate paperwork to [facility]. * Telephone Encounter - Tati Polo [...] covered through insurance. Will need sent to [facility]. Pt has a hospital f/u appointment scheduled for 05/09. Please discuss DME at this visit. Thank you in advanced, Emily Mandujano, RN [facility] Nurse Special Distribution Clerk Ronnie Cervantes (covering CM) documented in this encounter Plan of Treatment Upcoming Encounters Date Type Department Care Team (Late st Contact Info) Description 05/09/2024 1:00 PM EDT Office Visit [facility] [address] [facility] [phone] Tati Polo MD [address] [facility] [place] [address] 05/09/2024 2:30 PM EDT Office Visit Pharmacy, [place] [address] [facility] [place] [address] [facility] [address] [place] [facility] [place] [address] Scheduled Procedures Name Priority Associated Diagnoses Date/Ti [...] this encounter Medical Devices Implanted Type Area Operations Advisor Device Identifier Shelf Expiration Date Model / Serial / Lot Suture [place] Dbl Load 4.75mm - [id number] Implanted:Qty: 1 on 12/01/2019 by Judith Condon DO at OR [facility] Right: Shoulder [employer] 07/17/2021 AR-2324BCT -2 / / [id number] Suture [place] Dbl Load 5.5mm - [id number] Implanted:Qty: 1 on 12/01/2019 by Judith Condon DO at OR [facility] Right: Shoulder [employer] 09/16/2021 AR-2323BCT -2 / / [id number] documented as of this encounter Visit Diagnoses [...] Directives occurred with: Not Discussed Care Teams Forest Fire Lookout Relationship Specialty Start Date End Date Tati Polo MD [address] [facility] [place] [address] PCP - General Family Medicine 09/09/22 documented as of this encounter
--- OUTSIDE RECORDS SUMMARY | 2024-07-14 04:45 | External Medical Summary | Summary of Care ---
Author Name Unknown Organization [facility] Address [address] [facility] [address] Phone [phone] Care Team Providers Care Flower Shop Laborer/Designer Name Role Phone Velasquez Valencia MD Primary Care Provider +1- [phone] Reason for Visit * Reason Onset Date Comments Med Request 04/26/2024 Encounter Details Date Type Department Care Team (Late st Contact Info) Description 04/26/2024 Telephone [facility] [address] [place] [address] Velasquez Valencia MD [address] [place] [address] Med Request Allergies Active Allergy [...] DAY 180 Tablet 1 4 Active Tosb IsbelloStar 300 UNIT/ML Subcutaneous Solution Pen-injector (Insulin Glargine [...] IM 11/04/2009 Pneumococcal Conjugate Vacci ne, 20-valent (Xfznsym49) 07/09/2023 Pneumococcal Polysaccharide PPV23 (Pneumovax) 11/03/2015,02/09/2006 Seasonal [...] encounter Miscellaneous Notes * Telephone Encounter - Alyssa Engel OSA - 04/28/2024 10:56 AM EDT Pt's girlfriend is calling to speak with a nurse, She would not give me any information. * Telephone Encounter - Velasquez Valencia MD - 04/26/2024 4:01 PM EDT None of these are on the discharge summary from recent admission (04/10/24 - 04/13/24 at [place]). I don't think that he is on them. Please check with pt. * Telephone Encounter - Gila Rothman, warehouse freight handler - 04/26/2024 1:58 PM EDT [facility] calling requesting the following medication below that is listed as "Historical". The following information was provided: Medication Name: Nifedipine Strength: 10 MG Directions: Take 1 TAB by mouth 3 times daily Preferred Quantity: 270 TAB Previous Prescriber: Dr Ana LARRY [facility] Preferred Pharmacy: [id number] Medication Name: Magnesium Oxide Strength: 400 MG Directions: Take 1 TAB by mouth at bedtime Preferred Quantity: 90 TAB Previous Prescriber: Dr Ana LARRY [facility] Preferred Pharmacy[id number] [address] [facility] Medication Name: Colace Strength: 100 MG Directions: Take 1 CAP by mouth twice daily Preferred Quantity: 90 CAP Previous Prescriber: Dr Ana LARRY [facility]erred Pharmacy[id number] [address] [facility] Medication Name: Tamsulosin Strength: 0.4 MG Directions: Take 1 CAP by mouth daily Preferred Quantity: 90 CAP Previous Prescriber: Dr Ana Raymundo [facility] Preferred Pharmacy: [place] [id number] [address] Please review and approve if appropriate. Thank you, Gila Rothman CPhT Welfare Supervisor II, Certified Centralized Clinical Pharmacy Services (CCPS) 04/26/2024,2:02 PM documented in this encounter Plan of Treatment Upcoming Encounters Date Type Department Care Team (Late st Contact Info) Description 05/09/2024 1:00 PM EDT Office Visit Family [facility], [place] [address] [place] [address] Velasquez Valencia MD [address] [place] [address] 05/09/2024 2:30 PM EDT Office Visit Pharmacy, [place] [address] [place] [address] [place], [facility] [address] [place] [address] Scheduled Procedures Name Priority Associated Diagnoses Date/Ti [...] 02/07/2021 DISCUSS TOBACCO CESSATION (REFER TO SMARTSET #9245) 10/16/2023 10/16/2022 Zoster Vaccines (1 of 2) [...] this encounter Medical Devices Implanted Type Area Motion Pictures Cartoonist Device Identifier Shelf Expiration Date Model / Serial / Lot Suture [place] Dbl Load 4.75mm - [id number] Implanted:Qty: 1 on 12/01/2019 by Judith Condon DO at [facility] Right: Shoulder [employer] 07/17/2021 AR-2324BCT -2 / / [id number] Suture [place] Dbl Load 5.5mm - [id number] Implanted:Qty: 1 on 12/01/2019 by Judith Condon DO at OR [facility] Right: Shoulder [employer] 09/16/2021 AR-2323BCT -2 / / [id number] documented as of this encounter Advance Directives [...] Directives occurred with: Not Discussed Care Teams Flower Shop Laborer/Designer Relationship Specialty Start Date End Date Velasquez Valencia MD [address] [facility] [address] PCP - General Family Medicine 09/09/22 documented as of this encounter
--- OUTSIDE RECORDS SUMMARY | 2024-07-14 04:45 | External Medical Summary | Summary of Care ---
Author Name Unknown Organization [facility] Address [address] [place] [address] Phone [phone] Care Team Providers Care Loan Processing Supervisor Name Role Phone Velasquez Valencia MD Primary Care Provider +1- [phone] Reason for Visit * Reason Onset Date Comments Order Request 04/25/2024 Encounter Details Date Type Department Care Team (Late st Contact Info) Description 04/25/2024 Telephone [facility] [address] [place] [address] Emily Tena, RN [address] [place] [address] Order Request Allergies Active Allergy [...] IM 11/04/2009 Pneumococcal Conjugate Vacci ne, 20-valent (Irfbynz30) 07/09/2023 Pneumococcal Polysaccharide PPV23 (Pneumovax) 11/03/2015,02/09/2006 Seasonal [...] No 04/19/2024 Does the household have a [place] source of income? (Household - for ages [...] encounter Miscellaneous Notes * Telephone Encounter - Emily Wang MED ASSIST - 04/28/2024 10:05 AM EDT Faxed the order and appropriate paperwork to [facility]. * Telephone Encounter - Velasquez Valencia MD [...] covered through insurance. [facility] Pt has a hospital f/u appointment scheduled for 05/09. Please discuss DME at this visit. Thank you in advanced, Emily Mandujano RN [facility] Nurse Redrawer Ronnie Cervantes (covering ) documented in this encounter Plan of Treatment Upcoming Encounters Date Type Department Care Team (Late st Contact Info) Description 05/09/2024 1:00 PM EDT Office Visit [facility] [address] [facility] [address] Velasquez Valencia MD [address] [place] [facility] [place] [address] 05/09/2024 2:30 PM EDT Office Visit Pharmacy, [place] [address] [place] [address] [place], [facility] [address] [place] [address] Scheduled Procedures Name Priority Associated Diagnoses Date/Ti [...] this encounter Medical Devices Implanted Type Area Tub Rider Device Identifier Shelf Expiration Date Model / Serial / Lot Suture [place] Dbl Load 4.75mm - [id number] Implanted:Qty: 1 on 12/01/2019 by Judith Condon DO at [facility] Right: Shoulder [employer] 07/17/2021 AR-2324BCT -2 / / [id number] Suture [place] Dbl Load 5.5mm - [id number] Implanted:Qty: 1 on 12/01/2019 by Judith Condon DO at [facility] Right: Shoulder [employer] 09/16/2021 AR-2323BCT -2 / / [id number] documented as of this encounter Visit Diagnoses [...] Directives occurred with: Not Discussed Care Teams Loan Processing Supervisor Relationship Specialty Start Date End Date Velasquez Valencia MD [address] [place] [facility] [place] [address] PCP - General Family Medicine 09/09/22 documented as of this encounter
--- OUTSIDE RECORDS SUMMARY | 2024-07-14 04:45 | External Medical Summary | Summary of Care ---
Author Name Unknown Organization [facility] Address [address] [facility] [address] Phone [phone] Care Team Providers Care Cargo Bracer Name Role Phone Velasquez Valencia MD Primary Care Provider +1- [phone] Reason for Visit * Reason Onset Date Comments Med Request 04/26/2024 Encounter Details Date Type Department Care Team (Late st Contact Info) Description 04/26/[address] [facility] [address] [place] [address] Velasquez Valencia MD [address] [place] [address] Med Request Allergies Active Allergy [...] IM 11/04/2009 Pneumococcal Conjugate Vacci ne, 20-valent (Fzfcxhc90) 07/09/2023 Pneumococcal Polysaccharide PPV23 (Pneumovax) 11/03/2015,02/09/2006 Seasonal [...] encounter Miscellaneous Notes * Telephone Encounter - Madison Azul LPN [...] from recent admission (04/10/24 - 04/13/24 at [place]). I don't think that he is on them. Please check with pt. * Telephone Encounter - Gila Rothman, strike planning applications - 04/26/2024 1:58 PM EDT [facility] calling requesting the following medication below that is listed as "Historical". The following information was provided: Medication Name: Nifedipine Strength: 10 MG Directions: Take 1 TAB by mouth 3 times daily Preferred Quantity: 270 TAB Previous Prescriber: Dr Ana [facility] Pref[facility]acy: [id number] [address] [facility] Medication Name: Magnesium Oxide Strength: 400 MG Directions: Take 1 TAB by mouth at bedtime Preferred Quantity: 90 TAB Previous Prescriber: Dr Ana Raymundo [facility] Preferred Pharmacy: [id number] [address] [facility] Medication Name: Colace Strength: 100 MG Directions: Take 1 CAP by mouth twice daily Preferred Quantity: 90 CAP Previous Prescriber: Dr Ana LARRY [facility] Preferred Pharmacy: [facility] [address] [facility] Medication Name: Tamsulosin Strength: 0.4 MG Directions: Take 1 CAP by mouth daily Preferred Quantity: 90 CAP Previous Prescriber: Dr Perez [facility] Preferred Pharmacy: [id number] [address] [facility] Please review and approve if appropriate. Thank you, Gila Rothman CPhT Sprinkling Truck Driver II, Certified Centralized Clinical Pharmacy Services (CCPS) 04/26/2024,2:02 PM documented in this encounter Plan of Treatment Upcoming Encounters Date Type Department Care Team (Late st Contact Info) Description 05/09/2024 1:00 PM EDT Office Visit [place] [address] [place] [address] Velasquez Valencia MD [address] [place] [address] 05/09/2024 2:30 PM EDT Office Visit Pharmacy, [place] [address] [place] [address] [facility] [address] [place] [address] Scheduled Procedures Name Priority Associated Diagnoses Date/Ti [...] 02/07/2021 DISCUSS TOBACCO CESSATION (REFER TO SMARTSET #7251) 10/16/2023 10/16/2022 Zoster Vaccines (1 of 2) [...] this encounter Medical Devices Implanted Type Area Cans Vacuum Tester Device Identifier Shelf Expiration Date Model / Serial / Lot Suture [place] Dbl Load 4.75mm - [id number] Implanted:Qty: 1 on 12/01/2019 by Judith Condon, DO at [facility] Right: Shoulder [employer] 07/17/2021 AR-2324BCT -2 / / [id number] Suture [place] Dbl Load 5.5mm - [id number] Implanted:Qty: 1 on 12/01/2019 by Judith Condon, DO at [facility] Right: Shoulder [employer] 09/16/2021 AR-2323BCT -2 / / [id number] documented as of this encounter Advance Directives [...] Directives occurred with: Not Discussed Care Teams Cargo Bracer Relationship Specialty Start Date End Date Velasquez Valencia MD [address] [facility] [address] PCP - General Family Medicine 09/09/22 documented as of this encounter
--- OUTSIDE RECORDS SUMMARY | 2024-07-14 04:45 | External Medical Summary | Summary of Care ---
Author Name Unknown Organization [facility] Address [address] [address] Phone [phone] Care Team Providers Care Aircraft Sheet Metal Mechanic Name Role Phone Velasquez Valencia MD Primary Care Provider +1- [phone] Reason for Visit * Reason Onset Date Comments Hospital Follow-Up Hospital Follow-Up 04/14/2024 Hospital Follow-Up 04/27/2024 Encounter Details Date Type Department Care Team (Late st Contact Info) Description 04/14/2024 11:20 AM EDT Office Visit [facility] [address] [place] [address] Velasquez Valencia MD [address] [place] [address] Abdominal pain, generalized*; History of [...] as of this encounter (statuses as of 04/27/2024) Medications Medication Sig Dispensed Refills Start Date [...] A DAY 180 Tablet 1 4 Active Toumeghna SoloStar 300 UNIT/ML Subcutaneous Solution [...] 24 Discontinued Gabapentin 100 MG Oral Capsule (Neurontin)Indica tions:Neuropathy take 1 capsule by mouth every morning and 2 capsules by mouth at bedtime 270 Capsule 1 3 04/16/20 24 Discontinued(Ref ill) Movantik 25 MG Oral Tablet (Naloxegol Oxalate) take 1 tablet by mouth in the morning 30 Tablet 4 04/27/20 24 Discontinued Alum & Mag Hydroxide-Simeth 400-400-40 MG/5ML Oral Suspension (Mi-Acid II) Take 15 mL by mouth every 6 hours. 355 mL 3 4 04/21/20 24 Discontinued(Ref ill) documented as of this encounter (statuses as of 04/27/2024) Active Problems Problem Noted Date Diagnosed Date [...] as of this encounter (statuses as of 04/27/2024) Resolved Problems Problem Noted Date Diagnosed Date [...] as of this encounter (statuses as of 04/27/2024) Immunizations Name Administration Dates Next Due COVID-19 mRNA, LNP-s, No Pre serve, 2-Dose Series (Pfizer) 10/21/2021,03/01/2021,02/07/2021 H1N1 2009 Influenza, IM 11/04/2009 Pneumococcal Conjugate Vacci ne, 20-valent ([id number]) 07/09/2023 Pneumococcal Polysaccharide PPV23 (Pneumovax) 11/03/2015,02/09/2006 Seasonal [...] up. Patient presents for recent admission to [facility] from 04/10/24 - 04/13/24 for abdominal pain. [...] this scheduled. Patient had been admitted to [facility] in February and had a left [id number]-nvix amputation on March 12, 2024. Patient was [...] erectile dysfunction 04/19/2019 Current use of insulin ([facility]) 09/13/2017 DDD (degenerative disc disease), cervical 07/12/2019 Diabetes mellitus type 2, insulin dependent ([facility]) 07/05/2017 Diabetic polyneuropathy associated with type 2 diabetes mellitus ([facility]) 07/24/2016 Displacement of lumbar intervertebral disc without myelopathy DM type 2, goal: symptom mgmt ([facility]) 09/13/2017 DM type 2, not at goal ([facility]) Dyslipidemia, goal LDL below 70 07/24/2016 Gastroesophageal reflux disease without esophagitis 05/07/2020 Gastroparesis 08/27/2015 GERD (gastroesophageal reflux disease) History of DVT (deep vein thrombosis) 04/19/2019 HTN, goal below 140/90 12/23/2015 Per HTN Protocol #27. HTN, goal: symptom mgmt only 09/13/2017 IBS (irritable bowel syndrome) 08/27/2015 Intellectual disability 10/25/2019 Major depressive disorder, recurrent, severe without psychotic features ([facility]) 12/22/2016 Obesity, Class II, BMI 35-39.9, isolated (see actual BMI) 04/19/2019 OTHER osseochondrosis ankle Primary localized osteoarthrosis, lower leg Sleep apnea, obstructive Tobacco use disorder 12/22/2016 Type 2 diabetes mellitus with hemoglobin A1c goal of less than 8.0% ([facility]) 07/05/2017 Past Surgical History: Procedure Laterality Date ARTHO,SHOUL,W/ROTATOR CUFF Right 12/01/2019 ARTHROSCOPY SHOULDER ROTATOR CUFF performed by Judith Condon DO at [facility] COLONOSCOPY, DIAGNOSTIC (RECTUM) 04/18/2015 adenomatous polyp, repeat 5 yrs/[facility] COLONOSCOPY, DIAGNOSTIC (RECTUM) 04/15/2023 poor prep, repeat / [facility] COLONOSCOPY, DIAGNOSTIC (RECTUM) N/A 02/22/2024 normal/recall 5 years/COLONOSCOPY FLEXIBLE PROXIMAL DIAGNOSTIC performed by Marcela Del Valle MD at [facility] EGD, FLEXIBLE, DIAGNOSTIC 10/17/2014 mild-mod inflammation, repeat 1-2 mo/[facility] EGD, FLEXIBLE, DIAGNOSTIC 04/17/2015 normal bx/inpt [facility] EGD, FLEXIBLE, DIAGNOSTIC 05/08/2019 reflux esophagitis, gastritis, duodenitis, repeat 6 wks / [facility] EGD, FLEXIBLE, DIAGNOSTIC 08/18/2019 normal-EGD/[place] EGD, FLEXIBLE, DIAGNOSTIC N/A 05/02/2020 biopsies normal/EGD EGD, FLEXIBLE, DIAGNOSTIC N/A 02/22/2024 antral gastritis/biopsies normal/ESOPHAGOGASTRODUODENOSCOPY (EGD), FLEXIBLE, TRANSORAL, DIAGNOSTIC performed by Marcela Del Valle MD at OR [facility] INJECT DX/THER SUBSTANCE INTERLAMINAR CERVICAL/THORACIC W IMAGE GUIDE 08/17/2019 INJECTION SPINE LUMBAR CERVICAL OR THORACIC performed by Dario Nails DO at OR [facility] KNEE ARTHROSCOPY, DIAGNOSTIC l knee REMOVAL OF TONSILS, UNDER AGE 10 SHOULDER ARTHROSCOPY, BICEPS TENODESIS Right 12/01/2019 ARTHROSCOPY SHOULDER BICEP TENODESIS performed by Judith Condon DO at [facility] SHOULDER ARTHROSCOPY/DECOMPRESSION Right 12/01/2019 ARTHROSCOPY SHOULDER SUBACROMIAL DECOMPRESSION performed by Judith Condon DO at [facility] Review of patient's allergies indicates: Allergen Reactions [...] TAKE 1 TABLET BY MOUTH TWICE A [id number] Tablet 1 Toujeo SoloStar 300 UNIT/ML Subcutaneous [...] over 150. Max daily dose of 115 [id number] mL 4 Pioglitazone HCl 45 MG Oral [...] before he can transition into a prosthetic Limb. Hospital discharge follow-up - DISCH MED RECON CUR MED LIS Check-out note: Please see if we can get [facility] to do therapy in the home. If not, please assist with Carolina lazcano [place] - PT order already entered by [facility] physician. If a new one is needed by me, let me know Our next appt is 05/08 - he will not be able to keep that appt because he will need to have his key out. He will be seeing Gisel 05/09. Please cancel 05/08 and put him on my scheduled 05/09 at 1 PM Velasquez Valencia MD documented in this encounter Nursing Notes * Uzma Morin LPN - 04/14/2024 11:00 AM EDT The patient has been properly identified by confirmation of name and date of . Chief Complaint Patient presents with Hospital Follow-Up [facility] 04/13/24 Back pain and abdominal pain has gotten somewhat better but does still have it. Also having issues with bowels. Diarrhea for the last few days. documented in this encounter Plan of Treatment Upcoming Encounters Date Type Department Care Team (Late st Contact Info) Description 05/09/2024 1:00 PM EDT Office Visit [facility] [address] [place] [id number] Velasquez Valencia MD [address] [place] [address] 05/09/2024 2:30 PM EDT Office Visit Pharmacy, [place] [address] [place] [address] [place] [facility] [address] [place] [address] Scheduled Procedures Name Priority Associated Diagnoses Date/Ti [...] this encounter Medical Devices Implanted Type Area Route Rider Supervisor Device Identifier Shelf Expiration Date Model / Serial / Lot Suture [place] Dbl Load 4.75mm - [id number] Implanted:Qty: 1 on 12/01/2019 by Judith Condon DO at [facility] Right: Shoulder [employer] 07/17/2021 AR-2324BCT -2 / / [id number] Suture [place] Dbl Load 5.5mm - [id number] Implanted:Qty: 1 on 12/01/2019 by Judith Condon DO at OR [facility] Right: Shoulder [employer] 09/16/2021 AR-2323BCT -2 / / [id number] documented as of this encounter Visit Diagnoses Diagnosis Abdominal pain, generalized- Primary History of pancreatitis Personal history of other diseases of digestive system Hx of BKA, left (HCC) Phantom limb pain (HCC) Phantom limb (syndrome) Hospital discharge follow-up Other follow-up examination Cortical age-related cataract, right eye documented in this encounter Advance Directives * [...] Directives occurred with: Not Discussed Care Teams Aircraft Sheet Metal Mechanic Relationship Specialty Start Date End Date Velasquez Valencia MD [address] [facility] [place] [address] PCP - General Family Medicine 09/09/22 documented as of this encounter"
--- OUTSIDE RECORDS SUMMARY | 2024-07-14 04:46 | External Medical Summary | Summary of Care ---
Author Name Unknown Organization [facility] Address [address] [place] [address] Phone [phone] Care Team Providers Care Credit Coordinator Name Role Phone Velasquez Valencia MD Primary Care Provider +1- [phone] Encounter Details Date Type Department Care Team (Late st Contact Info) Description 04/26/2024 2:00 PM EDT Scheduled Telephone Care Coordination and Integration [address] [place] [place], [place] [id number] [place] [facility] Academic Services Coordinator [address] [place] [address] Allergies Active Allergy Reactions Criticality Noted Date Comments Cefaclor Unknown 07/26/2018 As child Empagliflozin Other (Please comment) 05/16/2021 DKA with hospitalization Nsaids High 04/19/2019 Gastric problems Other Reaction(s): gastroparesis, kidney problems, use with caution : hx esophagus damage documented as of this encounter (statuses as of 04/26/2024) Medications Medication Sig Dispensed Refills Start Date [...] the morning. 90 Tablet 3 10/07/2023 Active Atorvastatin Calcium 20 [...] BEDTIME ONLY NEEDED 30 Tablet 03/22/2024 Active Movantik 25 MG Oral Tablet (Naloxegol Oxalate) take 1 tablet by mouth in the morning 30 Tablet 03/27/2024 Active Lidocaine 4 % External Patch (Aspercreme) [...] of water. 510 g 5 04/21/2024 Active documented as of this encounter (statuses as of 04/26/2024) Active Problems Problem Noted Date Diagnosed Date History of pancreatitis 04/12/2024 S/P hardware removal [...] as of this encounter (statuses as of 04/26/2024) Resolved Problems Problem Noted Date Diagnosed Date [...] as of this encounter (statuses as of 04/26/2024) Immunizations Name Administration Dates Next Due COVID-19 mRNA, LNP-s, No Pre serve, 2-Dose Series (Pfizer) 10/21/2021,03/01/2021,02/07/2021 H1N1 2009 Influenza, IM 11/04/2009 Pneumococcal Conjugate Vacci ne, 20-valent (Mknscxp84) 07/09/2023 Pneumococcal Polysaccharide PPV23 (Pneumovax) 11/03/2015,02/09/2006 Seasonal [...] No 04/19/2024 Does the household have a [facility] source of income? (Household - for ages [...] this encounter Progress Notes * Eusebio Harris [facility] Academic Services Coordinator - 04/26/2024 2:19 PM EDT Telemedicine visit: No [facility] Academic Services Coordinator (AGA) documentation: CHW follow up phone call for RNCM. CHW spoke with patient and his significant other via speakerphone. Patient denies any current back or abdomen pain. Patient/significant other report that the patient's bowels are still not right. CHW asked them to explain. Patient/significant other report having to give patient stool softener, miralax and dulcolaxevery other day in order to keep his bowels moving regularly. Patient and significant other deny any other issues/concerns at this time. They report having the RNCM's contact information and are open to a follow up call in 1 week. Per Harris Community Health Worker Lead [facility] [place] [phone] Electronically signed by Eusebio Harris [facility] Academic Services Coordinator at 04/26/2024 2:33 PM EDT documented in this encounter Plan of Treatment Upcoming Encounters Date Type Department Care Team (Late st Contact Info) Description 05/09/2024 1:00 PM EDT Office Visit [facility] [address] [place] [phone] Velasquez Valencia MD [address] [place] [address] 05/09/2024 2:30 PM EDT Office Visit Pharmacy, [place] [address] [place] [address] [facility] [address] [place] [address] Scheduled Procedures Name Priority Associated Diagnoses Date/Ti [...] 02/07/2021 DISCUSS TOBACCO CESSATION (REFER TO SMARTSET #5362) 10/16/2023 10/16/2022 Zoster Vaccines (1 of 2) [...] encounter Medical Devices Implanted Type Area Director Distribution Device Identifier Shelf Expiration Date Model / Serial / Lot Suture [place] Dbl Load 4.75mm - [id number] Implanted:Qty: 1 on 12/01/2019 by Judith Condon, at OR [facility] Right: Shoulder [employer] 07/17/2021 AR-2324BCT -2 / / [id number] Suture [place] Dbl Load 5.5mm - [id number] Implanted:Qty: 1 on 12/01/2019 by Judith Condon, at OR [facility] Right: Shoulder [employer] 09/16/2021 AR-2323BCT -2 / / [id number] documented as of this encounter Advance Directives [...] Directives occurred with: Not Discussed Care Teams Credit Coordinator Relationship Specialty Start Date End Date Velasquez Valencia MD [address] [facility] [place] [address] PCP - General Family Medicine 09/09/22 documented as of this encounter
--- OUTSIDE RECORDS SUMMARY | 2024-07-14 04:46 | External Medical Summary | Summary of Care ---
Author Name Unknown Organization [facility] Address [address] [place] [address] Phone [phone] Care Team Providers Care Physical Anthropologist Name Role Phone Tati Polo MD Primary Care Provider +1- [phone] Reason for Visit * Reason Comments eRx-Medication Refill Encounter Details Date Type Department Care Team (Late st Contact Info) Description 04/25/[address] [facility] [address] [place] [address] Tati Polo MD [address] [place] [address] Allergies Active Allergy Reactions Criticality [...] BEDTIME ONLY NEEDED 30 Tablet 4 Active Movantik 25 MG Oral Tablet (Naloxegol Oxalate) take 1 tablet by mouth in the morning 30 Tablet 4 Active Lidocaine 4 % [...] FOUR TIMES DAILY 360 Capsule 4 Active Dicyclomine HCl 10 MG Oral Capsule (Bentyl) take 1 capsule by mouth four times a day 360 Capsule 3 3 04/26/20 24 Discontinued documented as of this encounter [...] foot 09/10/201709/18 Abscess of left foot 09/10/2017 12/29/2 017 Type 2 diabetes mellitus wit h [...] IM 11/04/2009 Pneumococcal Conjugate Vacci ne, 20-valent ([id number]) 07/09/2023 Pneumococcal Polysaccharide PPV23 (Pneumovax) 11/03/2015,02/09/2006 Seasonal [...] No 04/19/2024 Does the household have a [employer] source of income? (Household - for ages [...] Telephone Encounter - Tati Polo MD - 04/26/2024 3:55 PM EDTSigned Prescriptions: Disp Refills Dicyclomine HCl 10 MG Oral Capsule (Bentyl)360 Ca*0 Sig: TAKE 1 CAPSULE BY MOUTH FOUR TIMES DAILYAuthorizing Provider: TATI POLO * Telephone Encounter - Qasim Pittman, [place] - 04/26/2024 1:42 PM EDT Pending Prescriptions: Disp Refills Dicyclomine HCl 10 MG Oral Capsule [Pharma*360 Ca*0 Sig: TAKE 1 CAPSULE BY MOUTH FOUR TIMES DAILY * Telephone Encounter - Qasim Pittman MED 1,2,3 [place] - 04/26/2024 1:41 PM EDT Did you pend patient's preferred pharmacy and medication before forwarding?yes Pharmacy: [id number] Pending Prescriptions: Disp Refills Dicyclomine HCl 10 MG Oral Capsule (Benty*360 Ca*0 Sig: TAKE 1 CAPSULE BY MOUTH FOUR TIMES DAILY Last Visit: 04/14/2024 (in office), Visit date not found (telemedicine) Next Visit: 05.09.2024 If no future appointments scheduled, and last appointment is greater than a year ago, please schedule patient for a follow-up appointment Last date the medication was ordered: 05.10.2023 Is this request for a controlled substance?No Urine Drug Screen:No results found. However, due to the size of the patient record, not all encounters were searched. Please check Results Review for a complete set of results. Patient Phone Numbers Labs: Lab Results Component Value Date/Time CREAT 1.0 04/13/2024 04:30 AM CREAT 0.98 02/07/2024 12:00 AM CREAT 0.8 11/25/2019 08:53 AM POTASSIUM 4.1 04/13/2024 04:30 AM POTASSIUM 4.7 02/07/2024 12:00 AM POTASSIUM 4.5 11/25/2019 08:53 AM TSH 1.24 12/05/2021 12:12 PM TSH 0.698 06/30/2018 12:00 AM LDLCALC 48 12/13/2023 04:39 AM LDLCALC 108 01/08/2011 02:50 PM LDLDIRECT 60 04/11/2024 03:45 AM LDLDIRECT 133 (H) 04/12/2007 03:04 PM ALT 44 04/12/2024 09:45 AM ALT 37 11/25/2019 08:53 AM HGBA1C 10.2 (H) 01/14/2024 10:59 AM HGBA1C 9.2 (H) 09/16/2020 01:55 PM * Telephone Encounter - Ashlee Teran - 04/25/2024 1:37 PM EDTPending Prescriptions: Disp Refills Dicyclomine HCl 10 MG Oral Capsule [Pharma*360 Ca*0 Sig: TAKE 1CAPSULE BY MOUTH FOUR TIMES DAILY documented in this encounter Plan of Treatment Upcoming Encounters Date Type Department Care Team (Late st Contact Info) Description 05/09/2024 1:00 PM EDT Office Visit Family Practice, [place] [address] [place] [phone] Tati Polo MD [address], [place] [phone] 05/09/2024 2:30 PM EDT Office Visit Pharmacy, [place] [address] [place] [address] [facility] [address] [place] [address] Scheduled Procedures Name Priority Associated Diagnoses Date/Ti [...] 11/27/2019, Additional history exists HbA1c 07/16/2024 01/14/2024, 02/2 03/2024, 10/27/2023, Additional history exists Diabetic Eye Exam [...] this encounter Medical Devices Implanted Type Area Aviation Program Manager Device Identifier Shelf Expiration Date Model / Serial / Lot Suture [place] Dbl Load 4.75mm - [id number] Implanted:Qty: 1 on 12/01/2019 by Judith Condon DO at [facility] Right: Shoulder [employer] 07/17/2021 AR-2324BCT -2 / / [id number] Suture [place] Dbl Load 5.5mm - [id number] Implanted:Qty: 1 on 12/01/2019 by Judith Condon DO at OR [facility] Right: Shoulder [employer] 09/16/2021 AR-2323BCT -2 / / [id number] documented as of this encounter Advance Directives [...] Directives occurred with: Not Discussed Care Teams Physical Anthropologist Relationship Specialty Start Date End Date Tati Polo MD [address] [place] [address] PCP - General Family Medicine 09/09/22 documented as of this encounter
--- OUTSIDE RECORDS SUMMARY | 2024-07-14 04:46 | External Medical Summary | Summary of Care ---
Author Name Unknown Organization [facility] Address [address] [place] [place] [address] Phone [phone] Care Team Providers Care Venetian Blind Assembler Name Role Phone Tati Polo MD Primary Care Provider +1- [phone] Reason for Visit * Reason Comments Medication Refill Encounter Details Date Type Department Care Team (Late st Contact Info) Description 04/16/2024 Refill [facility] [address] [place] [address] Tati Polo MD [address] [place] [address] Neuropathy Allergies Active Allergy Reactions Criticality Noted Date Comments Cefaclor Unknown 07/26/2018 As child Empagliflozin Other (Please comment) 05/16/2021 DKA with hospitalization Nsaids High 04/19/2019 Gastric problems Other Reaction(s): gastroparesis, kidney problems, use with caution : hx esophagus damage documented as of this encounter (statuses as of 04/17/2024) Medications Medication Sig Dispensed Refills Start Date [...] less than 7.0% ([facility]) Use to inject insulin 5 times daily [...] in the morning 30 Tablet 03/27/2024 Active Alum & Mag Hydroxide-Simeth 400-400-40 MG/5ML Oral Suspension (Mi-Acid II) Take 15 mL by mouth every 6 hours. 355 mL 3 04/13/2024 Active Lidocaine 4 % External Patch (Aspercreme) [...] by mouth at bedtime 270 Capsule 1 04/17/2024 Active Gabapentin 100 MG Oral Capsule (Neurontin)Indicat ions:Neuropathy take 1 capsule by mouth every morning and 2 capsules by mouth at bedtime 270 Capsule 1 08/03/2023 Discontinue d(Refill) documented as of this encounter (statuses as of 04/17/2024) Active Problems Problem Noted Date Diagnosed Date [...] as of this encounter (statuses as of 04/17/2024) Resolved Problems Problem Noted Date Diagnosed Date [...] as of this encounter (statuses as of 04/17/2024) Immunizations Name Administration Dates Next Due COVID-19 mRNA, LNP-s, No Pre serve, 2-Dose Series (Pfizer) 10/21/2021,03/01/2021,02/07/2021 H1N1 2009 Influenza, IM 11/04/2009 Pneumococcal Conjugate Vacci ne, 20-valent ([id number]) 07/09/2023 Pneumococcal Polysaccharide PPV23 (Pneumovax) 11/03/2015,02/09/2006 Seasonal [...] the money to buy more. Never true 01/14/20 24 Within the past 12 months, t he food you bought just didn't last and you didn't have money to get more. Never true 01/14/2024 Childcare Answer Date Recorded Do you feel overwhelmed with taking care of a child, family member or friend? No 01/14/2024 Does your family need help f inding childcare? (Household - for ages 0-17 years) Not on file 01/14/2024 Clothing Answer Date Recorded Have you been unable to get clothing when it was really needed? No 01/14/2024 Is your family able to get c lothes or diapers when needed? (Household - for ages 0-17 years) Not on file 01/14/2024 Personal Safety Answer Date Recorded Do you feel unsafe or have concerns for your saf ety? No 03/03/2024 Do you have concerns for you r family's safety? (Household - for ages 0-17 years) Not on file 03/03/2024 Utilities Answer Date Recorded Do you have trouble paying y our heating, water, or electric bill? No 03/03/2024 Is your family able to pay t he heat, water, or electric bill? (Household - for ages 0-17 years) Not on file 03/03/2024 Does your family have access to good internet? (Household - for ages 0-17 years) Not on file 03/03/2024 Employment Status Answer Date Recorded Are you unemployed or without regular income? No 01/14/2024 Does the household have a [facility] source of income? (Household - for ages 0-17 years) Not on file 01/14/2024 Social Connections Answer Date Recorded How often do you feel lonely or isolated from th ose around you? Never 01/14/2024 Financial Resource Strain Answer Date R ecorded Do you have any trouble payi ng for your medications, or do you think you might in the future? No 01/14/2024 Does your family have troubl e paying for medicine? (Household - for ages 0-17 years) Not on file 01/14/2024 Transportation Needs Answer Date Record ed READ ONLY Do you have troubl e getting a ride to medical visits or work? Never True 03/03/2024 Does your family have a hard time getting a ride to doctors visits? (Household - for ages 0-17 years) Not on file 03/03/2024 Has lack of transportation k ept you from medical appointments, meetings, work, or from getting things needed for daily living? Check all that apply. (Adult - for ages 18 years and over) Not on file 03/03/2024 Do you (or your family) have trouble finding or paying for a ride (transportation)? (Household - for ages 0-17 years) Not on file 03/03/2024 Housing Stability Answer Date Recorded Do you currently live in a s helter or have no steady place to sleep at night? No 03/03/2024 READ ONLY Do you think you a re at risk of becoming homeless? No 03/03/2024 Does your family worry about paying for your home or becoming homeless? (Household - for ages 0-17 years) Not on file 0 03/03/2024 Are you homeless or worried that you might be in the future? (Adult - for ages 18 years and over) Not on file Are you (or your family) juan eless or worried that you might be in the future? (Household - for ages 0-17 years) Not on file Food Insecurity Answer Date Recorded Do you need food for this week? No 03/03/2024 Are you able to get enough f ood for your family? (Household - for ages 0-17 years) Not on file 03/03/2024 Does your family need food t his week? (Household - for ages 0-17 years) Not on file 03/03/2024 Do you always have enough fo od for your family? (Household - for ages 0-17 years) Not on file 03/03/2024 Sex and Gender Information Value Date Recorded [...] Telephone Encounter - Tati Polo MD - 04/17/2024 5:24 PM EDTSigned Prescriptions: Disp Refills Gabapentin 100 MG Oral Capsule (Neurontin) 270 Ca*1 Sig: take 1 capsule by mouth every morning and 2 capsules by mouth at bedtime Authorizing Provider: TATI POLO * Telephone Encounter - Tanesha Goldsmith LPN - 04/17/2024 3:25 PM EDTPending Prescriptions: Disp Refills Gabapentin 100 MG Oral Capsule (Neurontin) 270 Ca*1 Sig: take 1 capsule by mouth every morning and 2 capsules by mouth at bedtime * Telephone Encounter - Ashlee Teran - 04/16/2024 4:54 AM EDTPending Prescriptions: Disp Refills Gabapentin 100 MG Oral Capsule (Neurontin) 270 Ca*1 Sig: take 1capsule by mouth every morning and 2 capsules by mouth at bedtime documented in this encounter Plan of Treatment Upcoming Encounters Date Type Department Care Team (Late st Contact Info) Description 05/09/2024 1:00 PM EDT Office Visit Family Practice, [place] [address] [place] [facility] [place] [phone] Tati Polo MD [address] [place] [address] 05/09/2024 2:30 PM EDT Office Visit Pharmacy, [place] [address] [place] [address] [place], [facility] [address] [place] [address] Scheduled Procedures Name Priority Associated Diagnoses Date/Ti me COLONOSCOPY FLEXIBLE PROXIMA L DIAGNOSTIC Recall Screening for colon cancer Health Maintenance Due Date Last Done Comments HIV Screening 1988 Alpha-1 Antitrypsin 1991 Hepatitis C Screening 1991 Hepatitis B (1 of 3 - 19+ 3-dose series) [...] 01/13/2025 024, 01/05/2023, 09/01/2021, Additional history exists Depression Screening 01/13/2025 01/14/2024 O2 ASSESSMENT COMPLETED IN PAST YEAR FOR COPD 02/21/2025 02/22/2024 GFR 04/13/2025 04/13/2024, 03/19, 04/11/2024, Additional history exists DTaP,Tdap,and Td Vaccines (2 [...] Discontinued 02/22/2024, 02/22/2024, 04/15/2023, Additional history exists GARDASIL-HPV IMMUNIZATION SERIES Aged Out No longer eligible based on patient's age to complete this topic MENINGOCOCCAL (MENACTRA/MENVEO) Aged Out No longer eligible based on patient's age to complete this topic documented as of this encounter Medical Devices Implanted Type Area Small Products Ii Assembler Device Identifier Shelf Expiration Date Model / Serial / Lot Suture [place] Dbl Load 4.75mm - [id number] Implanted:Qty: 1 on 12/01/2019 by Judith Condon DO at OR [facility] Right: Shoulder [employer] 07/17/2021 AR-2324BCT -2 / / [id number] Suture [place] Dbl Load 5.5mm - [id number] Implanted:Qty: 1 on 12/01/2019 by Judith Condon DO at OR [facility] Right: Shoulder [employer] 09/16/2021 AR-2323BCT -2 / / [id number] documented as of this encounter Visit Diagnoses Diagnosis Neuropathy Mononeuritis of unspecified site documented in this encounter Advance Directives * [...] Directives occurred with: Not Discussed Care Teams Venetian Blind Assembler Relationship Specialty Start Date End Date Tati Polo MD [address] [facility] [place] [place] [address] PCP - General Family Medicine 09/09/22 documented as of this encounter
--- OUTSIDE RECORDS SUMMARY | 2024-07-14 04:46 | External Medical Summary | Summary of Care ---
Author Name Unknown Organization [facility] Address [address] [place] [facility] [place] [address] Phone [phone] Care Team Providers Care Sanitary Aide Name Role Phone Tati Polo MD Primary Care Provider +1- [phone] Reason for Visit * Reason Comments eRx-Medication Refill Encounter Details Date Type Department Care Team (Late st Contact Info) Description 04/26/[address] [facility] [address] [place] [address] Tati Polo MD [address] [place] [address] Allergies Active Allergy Reactions Criticality [...] IM 11/04/2009 Pneumococcal Conjugate Vacci ne, 20-valent ([id number]) 07/09/2023 Pneumococcal Polysaccharide PPV23 (Pneumovax) 11/03/2015,02/09/2006 Seasonal [...] No 04/19/2024 Does the household have a [facility] source of income? (Household - for [...] Telephone Encounter - Radha Fair LPN - 04/27/2024 12:15 PM EDTPending Prescriptions: [...] 1:00 PM EDT Office Visit Family Practice, [place] [address] [place] [facility] [place] [phone] Tati Polo MD [address] [place] [facility] [place] [address] 05/09/2024 2:30 PM EDT Office Visit Pharmacy, [place] [address] [place] [facility] [place] [address] [place], [facility] [address] [place] [facility] [place] [address] Scheduled Procedures Name Priority Associated Diagnoses Date/Ti [...] this encounter Medical Devices Implanted Type Area Lead Process Engineer Device Identifier Shelf Expiration Date Model / Serial / Lot Suture [place] Dbl Load 4.75mm - [id number] Implanted:Qty: 1 on 12/01/2019 by Judith Condon, DO at OR [facility] Right: Shoulder [employer] 07/17/2021 AR-2324BCT -2 / / [id number] Suture [place] Dbl Load 5.5mm - [id number] Implanted:Qty: 1 on 12/01/2019 by Judith Condon DO at OR [facility] Right: Shoulder [employer] 09/16/2021 AR-2323BCT -2 / / [id number] documented as of this encounter Advance Directives [...] Directives occurred with: Not Discussed Care Teams Sanitary Aide Relationship Specialty Start Date End Date Tati Polo MD [address] [place] [address] PCP - General Family Medicine 09/09/22 documented as of this encounter
--- OUTSIDE RECORDS SUMMARY | 2024-07-14 04:46 | External Medical Summary | Summary of Care ---
Author Name Unknown Organization [facility] Address [address] [place] [facility] [facility] [place] [address] Phone [phone] Care Team Providers Care Oncology Social Work Name Role Phone Velasquez Valencia MD Primary Care Provider +1- [phone] Reason for Visit * Reason Onset Date Comments Med Request 04/26/2024 Encounter Details Date Type Department Care Team (Late st Contact Info) Description 04/26/[address] [facility] [address] [place] [address] Velasquez Valencia MD [address] [place] [address] Med Request Allergies Active Allergy [...] FOUR TIMES DAILY 360 Capsule 04/26/2024 Active documented as of this encounter (statuses [...] IM 11/04/2009 Pneumococcal Conjugate Vacci ne, 20-valent ([id number]) 07/09/2023 Pneumococcal Polysaccharide PPV23 (Pneumovax) 11/03/2015,02/09/2006 Seasonal [...] No 04/19/2024 Does the household have a [facility] source of income? (Household - [...] from recent admission (04/10/24 - 04/13/24 at [place]). I don't think that he is on them. Please check with pt. * Telephone Encounter - Gila Rothman senior customer service representative - 04/26/2024 1:58 PM EDT [facility] calling requesting the following medication below that is listed as "Historical". The following information was provided: Medication Name: Nifedipine Strength: 10 MG Directions: Take 1 TAB by mouth 3 times daily Preferred Quantity: 270 TAB Previous Prescriber: Dr Ana LARRY [facility] Preferred Pharmacy: [facility] [address] [address] [facility] Medication Name: Magnesium Oxide Strength: 400 MG Directions: Take 1 TAB by mouth at bedtime Preferred Quantity: 90 TAB Previous Prescriber: Dr Ana LARRY [facility] Preferred Pharmacy: [facility] [id number] [place] [address] [address] [facility] Medication Name: Colace Strength: 100 MG Directions: Take 1 CAP by mouth twice daily Preferred Quantity: 90 CAP Previous Prescriber: Dr Ana LARRY [facility] Preferred Pharmacy: [facility] [id number] Medication Name: Tamsulosin Strength: 0.4 MG Directions: Take 1 CAP by mouth daily Preferred Quantity: 90 CAP Previous Prescriber: Dr Ana LARRY [facility] Preferred Pharmacy: [facility] [id number] Please review and approve if appropriate. Thank you, Gila Rothman, [facility] Metal Pickling Equipment Operator II, Certified [facility] ([facility]) 04/26/2024,2:02 PM documented in this encounter Plan of Treatment Upcoming Encounters Date Type Department Care Team (Late st Contact Info) Description 05/09/2024 1:00 PM EDT Office Visit Family Practice, [place] [address] [place] [facility] [address] Velasquez Valencia MD [address] [place] [facility] [place] [address] 05/09/2024 2:30 PM EDT Office Visit Pharmacy, [place] [address] [place] [facility] [place] [address] [place], [facility] [address] [place] [facility] [place] [address] Scheduled Procedures Name Priority Associated Diagnoses Date/Ti [...] encounter Medical Devices Implanted Type Area Fire Battalion Chief Device Identifier Shelf Expiration Date Model / Serial / Lot Suture [place] Dbl Load 4.75mm - [id number] Implanted:Qty: 1 on 12/01/2019 by Judith Condon DO at OR [facility] Right: Shoulder [employer] 07/17/2021 AR-2324BCT -2 / / [id number] Suture [place] Dbl Load 5.5mm - [id number] Implanted:Qty: 1 on 12/01/2019 by Judith Condon DO at OR [facility] Right: Shoulder [employer] 09/16/2021 AR-2323BCT -2 / / [id number] documented as of this encounter Advance Directives [...] Directives occurred with: Not Discussed Care Teams Oncology Social Work Relationship Specialty Start Date End Date Velasquez Valencia MD [address] [facility] [place] [address] PCP - General Family Medicine 09/09/22 documented as of this encounter
--- OUTSIDE RECORDS SUMMARY | 2024-07-14 04:46 | External Medical Summary | Summary of Care ---
Author Name Unknown Organization [facility] Address [address] [facility] [address] Phone [phone] Care Team Providers Care Cosmetology Professor Name Role Phone Velasquez Valencia MD Primary Care Provider +1- [phone] Reason for Visit * Reason Onset Date Comments Follow Up 01/21/2024 Encounter Details Date Type Department Care Team (Late st Contact Info) Description 01/21/2024 Telephone [facility] [address] [place] [address] Velasquez Valencia MD [address] [place] [address] Follow Up Allergies Active Allergy Reactions Criticality Noted Date Comments Cefaclor Unknown 07/26/2018 As child Empagliflozin Other (Please comment) 05/16/2021 DKA with hospitalization Nsaids High 04/19/2019 Gastric problems Other Reaction(s): gastroparesis, kidney problems, use with caution : hx esophagus damage documented as of this encounter (statuses as of 04/21/2024) Medications Medication Sig Dispensed Refills Start Date End Date Status Albuterol Sulfate HFA 108 (90 Base) MCG/ACT Inhalation Aerosol SolutionIndications :RSV bronchitis inhale 2 puffs by mouth and [...] Active metFORMIN HCl 500 MG Oral Tablet (Glucophage)Indicat ions:Type 2 diabetes mellitus with hemoglobin A1c goal [...] Oral Tablet Extended Release 24 Hour (toPROL XL)Indications:HTN, goal below 140/90 Take 1 tab by mouth twice per day 180 Tablet 3 12/29/2023 Active Pantoprazole Sodium 40 MG Oral Tablet Delayed Release (Protonix) TAKE 1 TABLET BY MOUTH TWICE A DAY 180 Tablet 1 01/08/2024 Active Toumeghna SoloStar 300 UNIT/ML Subcutaneous Solution Pen-injector (Insulin Glargine (1 Unit Dial))Indications:T ype 2 diabetes mellitus with hemoglobin A1c goal of less than 7.0% (HCC) Inject 40 units twice daily- this replaces lantus 54 mL 4 01/19/2024 Active BD Pen Needle Short U/F 31G X 8 MM (Insulin Pen Needle)Indications: Type 2 diabetes mellitus with hemoglobin A1c goal of less than 7.0% ([facility]) Use to inject insulin 5 times daily 500 Each 3 01/19/2024 Active documented as of this encounter (statuses as of 04/21/2024) Active Problems Problem Noted Date Diagnosed Date [...] as of this encounter (statuses as of 04/21/2024) Resolved Problems Problem Noted Date Diagnosed Date [...] 03/02/2021 07/04/2021 Intellectual disability 10/25/2019 01/0 03/2022 Obesity, Class II, BMI 35-39 .9, [...] as of this encounter (statuses as of 04/21/2024) Immunizations Name Administration Dates Next Due COVID-19 mRNA, LNP-s, No Pre serve, 2-Dose Series (Pfizer) 10/21/2021,03/01/2021,02/07/2021 H1N1 2009 Influenza, IM 11/04/2009 Pneumococcal Conjugate Vacci ne, 20-valent ([id number]) 07/09/2023 Pneumococcal Polysaccharide PPV23 (Pneumovax) 11/03/2015,02/09/2006 Seasonal [...] Does the household have a [facility] source of income? (Household - for [...] you have serious difficulty h earing? No 12/12/2023 Are you blind or do you have serious difficulty seeing, even when wearing glasses? No 12/12/2023 Do you have serious difficul ty walking or climbing stairs? (5 years old or older) No 12/12/2023 Do you have difficulty dress ing or bathing? (5 years old or older) No 12/12/2023 Because of a physical, menta l, or emotional condition, do you have difficulty doing errands alone such as visiting a doctor s office or shopping? (15 years old or older) No 12/12/19 Cognitive Status Response Date of Assessm ent Because of a physical, menta l, or emotional condition, do you have serious difficulty concentrating, remembering, or making decisions? (5 years old or older) No 12/12/2023 documented as of this encounter Miscellaneous Notes * Telephone Encounter - Sparkle Garcia LPN - 01/26/2024 9:[address] Freed office with [facility] podiatry and spoke with a nurse to obtain records from most recent visit. She will fax them to our office. * Telephone Encounter - Velasquez Valencia MD - 01/21/2024 7:29 AM EDT At recent office visit, pt reported that Dr Camacho (podiatry) has ordered several studies of his ankle/leg. These may include labs and imaging studies. THey were done out of network. I believe at [place]. Please see if we can obtain copies of any recent studies and recent notes from Dr Camacho.I need to understand what is going on with his leg to know the urgency of need for surgery. documented in this encounter Plan of Treatment Upcoming Encounters Date Type Department Care Team (Late st Contact Info) Description 05/09/2024 1:00 PM EDT Office Visit [place] [address] [place] [address] Velasquez Valencia MD [address] [place] [address] 05/09/2024 2:30 PM EDT Office Visit Pharmacy, [address] [address] [facility] [address] [place] [address] Scheduled Procedures Name Priority Associated Diagnoses Date/Ti [...] this encounter Medical Devices Implanted Type Area Department Helper Device Identifier Shelf Expiration Date Model / Serial / Lot Suture [place] Dbl Load 4.75mm - [id number] Implanted:Qty: 1 on 12/01/2019 by Judith Condon DO at OR [facility] Right: Shoulder [employer] 07/17/2021 AR-2324BCT -2 / / [id number] Suture [place] Dbl Load 5.5mm - [id number] Implanted:Qty: 1 on 12/01/2019 by Judith Condon DO at OR [facility] Right: Shoulder [employer] 09/16/2021 AR-2323BCT -2 / / [id number] documented as of this encounter Advance Directives [...] Directives occurred with: Not Discussed Care Teams Cosmetology Professor Relationship Specialty Start Date End Date Velasquez Valencia MD [address] [facility] [place] [address] PCP - General Family Medicine 09/09/22 documented as of this encounter
--- OUTSIDE RECORDS SUMMARY | 2024-07-14 04:47 | External Medical Summary | Summary of Care ---
Author Name Unknown Organization [facility] Address [address] [facility] [place] [address] Phone [phone] Care Team Providers Care Tilesetter Name Role Phone Velasquez Valencia MD Primary Care Provider +1- [phone] Encounter Details Date Type Department Care Team (Late st Contact Info) Description 04/14/2024 Population Health External Data Unspecified Department Allergies Active Allergy Reactions Criticality Noted Date Comments Cefaclor Unknown 07/26/2018 As child Empagliflozin Other (Please comment) 05/16/2021 DKA with hospitalization Nsaids High 04/19/2019 Gastric problems Other Reaction(s): gastroparesis, kidney problems, use with caution : hx esophagus damage documented as of this encounter (statuses as of 04/14/2024) Medications Medication Sig Dispensed Refills Start Date [...] the evening. 360 Tablet 3 06/18/2023 Active Gabapentin 100 MG Oral Capsule (Neurontin)Indicati ons:Neuropathy take 1 capsule by mouth every morning and 2 capsules by mouth at bedtime 270 Capsule 1 08/03/2023 Active Additional Information Patient taking differently: 200 mg Oral BID (.AM/PM), take 2 capsule by mouth every morning and 2 capsules by mouth at bedtime, Reported on 03/03/2024 Losartan Potassium 100 MG Oral Tablet (Cozaar) [...] hemoglobin A1c goal of less than 7.0% ([facility]) Inject 40 units twice daily- this replaces lantus 54 mL 4 01/19/2024 Active BD Pen Needle Short U/F 31G X 8 MM (Insulin Pen Needle)Indications: Type 2 diabetes mellitus with hemoglobin A1c goal of less than 7.0% ([facility]) Use to inject insulin 5 times daily 500 Each 3 01/19/2024 Active Insulin Aspart FlexPen 100 UNIT/ML Subcutaneous Solution Pen-injectorIndicat ions:Type 2 diabetes mellitus with hemoglobin A1c goal of less than 7.0% ([facility]) Inject 32 units with breakfast 22 units with lunch and 22 units with supper plus CF of 1:12 over 150. Max daily dose of 115 units 120 mL 4 02/16/2024 Active Pioglitazone HCl 45 MG Oral Tablet (Actos)Indications: Type 2 diabetes mellitus with hemoglobin A1c goal of less than 7.0% ([facility]) Take 1 Tablet by mouth in the morning. Please fill in about a month- patient is going to be using up his current supply of 15 mg and 30 mg tablets. 90 Tablet 4 02/16/2024 Active traMADol HCl 50 MG Oral Tablet (Ultram)Indications :Abdominal pain, epigastric Take 1 Tablet by mouth every 6 hours as needed for Pain, Severe. 40 Tablet 02/22/2024 Active hydroCHLOROthiazide 25 MG Oral Tablet (Hydrodiuril) Take 1 Tablet by mouth in the morning. 09/22/2023 Active Cyclobenzaprine HCl 10 MG Oral Tablet (Flexeril)Indicatio ns:Lumbar disc herniation TAKE 1 TABLET BY MOUTH [...] MEALS ) 270 Tablet 1 04/13/2024 Active documented as of this encounter (statuses as of 04/14/2024) Active Problems Problem Noted Date Diagnosed Date [...] as of this encounter (statuses as of 04/14/2024) Resolved Problems Problem Noted Date Diagnosed Date [...] as of this encounter (statuses as of 04/14/2024) Immunizations Name Administration Dates Next Due COVID-19 mRNA, LNP-s, No Pre serve, 2-Dose Series (Pfizer) 10/21/2021,03/01/2021,02/07/2021 H1N1 2009 Influenza, IM 11/04/2009 Pneumococcal Conjugate Vacci ne, 20-valent ([id number]) 07/09/2023 Pneumococcal Polysaccharide PPV23 (Pneumovax) 11/03/2015,02/09/2006 Seasonal [...] No 01/14/2024 Does the household have a re gular [...] Description 04/14/2024 11:20 AM EDT Office Visit Family Practice [place] [address] [facility] [place] [place] [address] Velasquez [facility] [address] [facility] [address] Arrived 04/14/2024 6:10 PM EDT Pharmacy Pharmacy, [place] [address] [place] [address] [facility] [address] [place] [address] Type 2 diabetes mellitus with hemoglobin A1c goal of less than 7.0% (HCC)* 05/08/2024 11:40 AM EDT Office Visit Family [facility], [place] [address] [facility] [place] [place] [phone] Velasquez Valencia MD [address] [place] [facility] [place] [address] 05/09/2024 2:30 PM EDT Office Visit Pharmacy, [place] [address] [place] [address] [facility] [address] [facility] [place] [place] [address] Scheduled Procedures Name Priority Associated Diagnoses Date/Ti [...] 02/07/2021 DISCUSS TOBACCO CESSATION (REFER TO SMARTSET #1261) 10/16/2023 10/16/2022 Zoster Vaccines (1 of 2) 2023 Diabetic Foot Exam 07/09/2024 07/09/2023, 0 03/07/2021, [...] 04/11/2029 04/11/2024, 11/19, 01/05/2023, Additional history exists Influenza Vaccine (FLU shot) Completed 07/09/2023, 10/16/2022, 07/31/2021, Additional history exists Pneumococcal Vaccine: [...] this encounter Medical Devices Implanted Type Area Data Storage Specialist Device Identifier Shelf Expiration Date Model / Serial / Lot Suture [place] Dbl Load 4.75mm - [id number] Implanted:Qty: 1 on 12/01/2019 by Judith Condon, DO [facility] Right: Shoulder [employer] 07/17/2021 AR-2324BCT -2 / / [id number] Suture [place] Dbl Load 5.5mm - [id number] Implanted:Qty: 1 on 12/01/2019 by Judith Condon, at OR [facility] Right: Shoulder [employer] 09/16/2021 AR-2323BCT -2 / / [id number] documented as of this encounter Advance Directives [...] Directives occurred with: Not Discussed Care Teams Tilesetter Relationship Specialty Start Date End Date Velasquez Valencia MD [address] [place] [facility] [place] [address] PCP - General Family Medicine 09/09/22 documented as of this encounter
--- OUTSIDE RECORDS SUMMARY | 2024-07-14 04:47 | External Medical Summary | Summary of Care ---
Author Name Unknown Organization [facility] Address [address] [facility] [place] [address] Phone [phone] Care Team Providers Care Vending Machine Refiller Name Role Phone Velasquez Valencia MD Primary Care Provider +1- [phone] Reason for Visit * Reason Comments Appointment Encounter Details Date Type Department Care Team (Late st Contact Info) Description 04/14/2024 6:10 PM EDT Pharmacy Pharmacy, [address] [address] [facility] [address] [place] [address] Type 2 diabetes mellitus with hemoglobin A1c goal of less than 7.0% ([facility])* Allergies Active Allergy Reactions Criticality Noted Date [...] less than 7.0% ([facility]) Inject 32 units with breakfast 22 units [...] IM 11/04/2009 Pneumococcal Conjugate Vacci ne, 20-valent ([id number]) 07/09/2023 Pneumococcal Polysaccharide PPV23 (Pneumovax) 11/03/2015,02/09/2006 Seasonal [...] No 01/14/2024 Does the household have a [facility] source [facility] income? (Household - for ages [...] of this encounter Progress Notes * Charleen Willams, contract management specialist - 04/14/2024 8:57 AM EDT Patient Phone Numbers Spoke with patient to schedule [facility] appointment for DM management. Appointment scheduled as noted below. 05/09/2024 Thank you, Charleen Willams Nurse [facility] 04/14/2024, 9:00 AM documented in this encounter Plan of Treatment Upcoming Encounters Date Type Department Care Team (Late st Contact Info) Description 04/14/2024 11:20 AM EDT Office Visit [address] [phone] Velasquez Valencia MD [address] [place] [address] 05/08/2024 11:40 AM EDT Office Visit [place] [address] [place] [phone] Velasquez Valencia MD [address] [place] [address] 05/09/2024 2:30 PM EDT Office Visit Pharmacy, [address] [address] [facility] [address] [place] [address] Scheduled Procedures Name Priority Associated Diagnoses Date/Ti [...] 02/07/2021 DISCUSS TOBACCO CESSATION (REFER TO SMARTSET #2458) 10/16/2023 10/16/2022 Zoster Vaccines (1 of 2) [...] encounter Medical Devices Implanted Type Area Oil Spot Washer Device Identifier Shelf Expiration Date Model / Serial / Lot Suture [place] Dbl Load 4.75mm - [id number] Implanted:Qty: 1 on 12/01/2019 by Judith Condon, at OR [facility] Right: Shoulder [employer] 07/17/2021 AR-2324BCT -2 / / [id number] Suture [place] Dbl Load 5.5mm - [id number] Implanted:Qty: 1 on 12/01/2019 by Judith Condon, at OR [facility] Right: Shoulder [employer] 09/16/2021 AR-2323BCT -2 / / [id number] documented as of this encounter Visit Diagnoses Diagnosis Type 2 diabetes mellitus with hemoglobin A1c goal of less than 7.0% ([facility])- Primary documented in this encounter Advance Directives [...] Directives occurred with: Not Discussed Care Teams Vending Machine Refiller Relationship Specialty Start Date End Date Velasquez Valencia MD [address] [place] [address] PCP - General Family Medicine 09/09/22 documented as of this encounter
--- OUTSIDE RECORDS SUMMARY | 2024-07-14 04:47 | External Medical Summary | Summary of Care ---
Author Name Unknown Organization [facility] [address] [facility] [address] Phone [phone] Care Team Providers Care Sql Architect Name Role Phone Velasquez Valencia MD Primary Care Provider +1- [phone] Reason for Visit * Reason Onset Date Comments Advice 04/15/2024 Encounter Details Date Type Department Care Team (Late st Contact Info) Description 04/15/2024 Telephone [facility] [address] [place] [address] Velasquez Valencia MD [address] [place] [address] Advice Allergies Active Allergy Reactions Criticality Noted Date Comments Cefaclor Unknown 07/26/2018 As child Empagliflozin Other (Please comment) 05/16/2021 DKA with hospitalization Nsaids High 04/19/2019 Gastric problems Other Reaction(s): gastroparesis, kidney problems, use with caution : hx esophagus damage documented as of this encounter (statuses as of 04/15/2024) Medications Medication Sig Dispensed Refills Start Date [...] of less than 7.0% ([facility]) Take 1 Tablet by mouth in [...] 50 MG Oral Tablet (Ultram)Indications :Abdominal pain, generalized,Phantom limb pain (HCC) Take 1 Tablet by mouth every 6 hours as needed for Pain, Severe. Take 1-2 tabs by mouth every 6 hours as needed for severe pain in want to do it due 8 it has been 80 Tablet 04/14/2024 Active documented as of this encounter (statuses as of 04/15/2024) Active Problems Problem Noted Date Diagnosed Date [...] as of this encounter (statuses as of 04/15/2024) Resolved Problems Problem Noted Date Diagnosed Date [...] as of this encounter (statuses as of 04/15/2024) Immunizations Name Administration Dates Next Due COVID-19 mRNA, LNP-s, No Pre serve, 2-Dose Series (Pfizer) 10/21/2021,03/01/2021,02/07/2021 H1N1 2009 Influenza, IM 11/04/2009 Pneumococcal Conjugate Vacci ne, 20-valent ([id number]) 07/09/2023 Pneumococcal Polysaccharide PPV23 (Pneumovax) 11/03/2015,02/09/2006 Seasonal [...] No 01/14/2024 Does the household have a [facility] source of income? (Household - for ages [...] Miscellaneous Notes * Telephone Encounter - Tanesha Bourgeois LPN - 04/15/2024 10:50 AM EDT Called and spoke with pt, aware of message. Pt agreeable * Telephone Encounter - Telly Herr MD - 04/15/2024 10:44 AM EDT Continue miralax, can add senna if not already taking Note states he is post-op, would strongly urge to contact surgeon as well for advice for bowel regimen! Er for worsening symptoms * Telephone Encounter - Emily Luther LPN - 04/15/2024 10:39 AM EDT S/w Ni, pt's GF. Just saw Dr. Valencia yesterday. Abd is hard, bloated, painful, back pain, told Dr. Valencia this yesterday. "He's impacted". But having loose watery stools. Doing Miralax Q6 hours, Ducalax, but no enema. Asked if he was passing any hard stool at all, GF says no, but "he's impacted". Does not want to take him to the hospital again, "we've been there so much already". Denies vomiting. Asking for something stronger than Miralax. Wants colonoscopy prep, which I told her was Miralax. Please advise. * Telephone Encounter - Suzanne England OSA - 04/15/2024 10:33 AM EDT Reason for patient's call: patients girlfriend calling in because patient is having constipation post-op.They slava like medication called in. Caller was transferred to Emily at the nurse line. documented in this encounter Plan of Treatment Upcoming Encounters Date Type Department Care Team (Late st Contact Info) Description 05/09/2024 1:00 PM EDT Office Visit Family [facility], [place] [address] [place] [facility] [place] [address] Velasquez Valencia MD [address] [place] [facility] [place] [address] 05/09/2024 2:30 PM EDT Office Visit Pharmacy, [place] [address] [place] [facility] [place] [address] [place] [facility] [address] [facility] [place] [address] Scheduled Procedures Name Priority Associated Diagnoses Date/Ti [...] 02/07/2021 DISCUSS TOBACCO CESSATION (REFER TO SMARTSET #3791) 10/16/2023 10/16/2022 Zoster Vaccines (1 of 2) [...] this encounter Medical Devices Implanted Type Area Slasher Hand Device Identifier Shelf Expiration Date Model / Serial / Lot Suture [place] Dbl Load 4.75mm - [id number] Implanted:Qty: 1 on 12/01/2019 by Judith Condon, DO at OR [facility] Right: Shoulder [employer] 07/17/2021 AR-2324BCT -2 / / [id number] Suture [place] Dbl Load 5.5mm - [id number] Implanted:Qty: 1 on 12/01/2019 by Judith Condon, at OR [facility] Right: Shoulder [employer] 09/16/2021 AR-2323BCT -2 / / [id number] documented as of this encounter Advance Directives [...] Directives occurred with: Not Discussed Care Teams Sql Architect Relationship Specialty Start Date End Date Velasquez Valencia MD [address] [place] [facility] [place] [address] PCP - General Family Medicine 09/09/22 documented as of this encounter
--- OUTSIDE RECORDS SUMMARY | 2024-07-14 04:47 | External Medical Summary | Summary of Care ---
Author Name Unknown Organization [facility] Address [address] [place] [address] Phone [phone] Care Team Providers Care Knife Setter Name Role Phone Velasquez Valencia MD Primary Care Provider [phone] Reason for Referral * Evaluate & Treat - Unlimited Visits (Within 3 days (urgent)) - Authorized Specialty Diagnoses / Procedures Referred By [place] t Referred To Contact Physical Therapy / Physical Medicine And Rehab Diagnoses 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) Kaveh Holguin MD [address] [facility] [place] [address] Referral ID Status Reason Start Date Expiration Date Visits Requested Visits Authorized [id number] Authorized Specialty Services Required 04/13/2024 [id number] Question Answer Referral Priority Within 3 days (urgent) Where should this appointment be scheduled? [facility] Comments Discharge Order Reason for Visit * Reason Comments Abdominal Pain Back Pain * Auth/Cert Specialty Diagnoses / Procedures Referred By Contac t Referred To Contact [facility] [address] [place] [address] Phone: [phone] Emergency Medicine [address] [address] Referral ID Status Reason Start Date Expiration Date Visits Re quested Visits Authorized [id number] Encounter Details Date Type Department Care Team (Latest Contact Info) Description 04/10/2024 4:40 PM EDT - 04/13/2024 1:56 PM EDT Hospital Encounter 3B [facility], [facility] 3rd Floor [address] [place] [address] Theresa Silva MD [address] [place] [address] Cally Hare MD [address] [place] [address] [phone] Kaveh Holguin MD [address] [place] [address] [place] [address] Pt Handout (on AVS) Discharge Disposition: Home - Self Care Allergies [...] the evening. 360 Tablet 3 3 Active Gabapentin 100 MG Oral Capsule (Neurontin)Indica tions:Neuropathy take 1 capsule by mouth every morning and 2 capsules by mouth at bedtime 270 Capsule 1 3 Active Additional Information Patient taking differently: 200 [...] DAY 180 Tablet 1 4 Active Tosb SoloStar 300 UNIT/ML Subcutaneous Solution [...] less than 7.0% ([facility]) Take 1 Tablet by mouth [...] in the morning 30 Tablet 4 Active Alum & Mag Hydroxide-Simeth 400-400-40 MG/5ML Oral Suspension (Mi-Acid II) Take 15 mL by mouth every 6 hours. 355 mL 3 4 Active Lidocaine 4 % External Patch (Aspercreme) Place 1 Patch over 12 hours topically on the skin in the morning. 30 Patch 4 Active Metoclopramide HCl 10 MG Oral Tablet (Reglan) take 1 tablet by mouth three times a day ( 30 MINUTES before MEALS ) 270 Tablet 1 4 Active Clindamycin HCl 300 MG Oral Capsule Take 1 Capsule by mouth in the morning and 1 Capsule at noon and 1 Capsule in the evening and 1 Capsule before bedtime. 4 04/13/20 24 Discontinued Metoclopramide HCl 10 MG Oral Tablet (Reglan) take 1 tablet by mouth three times a day ( 30 MINUTES before MEALS ) 270 Tablet 1 4 04/13/20 24 Discontinued documented as of this encounter [...] mRNA, LNP-s, No Pre serve, 2-Dose Series (Oakmonkey) 10/21/2021,03/01/2021,02/07/2021 H1N1 2009 Influenza, IM 11/04/2009 Pneumococcal Conjugate Vacci ne, 20-valent ([id number]) 07/09/2023 Pneumococcal Polysaccharide PPV23 (Pneumovax) 11/03/2015,02/09/2006 Seasonal [...] 01/14/2024 Does the household have a re lar [...] Sign Reading Time Taken Comments Blood Pressure 178/85 04/13/2024 7:37 AM EDT Pulse 99 04/13/2024 7:37 AM EDT Temperature 35.9 C (96.6 F) 04/13/2024 7:37 AM ED T Respiratory Rate 18 04/13/2024 7:37 AM EDT Oxygen Saturation 96% 04/13/2024 7:37 AM EDT Inhaled Oxygen Concentration - - Weight 123 kg (271 lb 2.7 oz) 04/11/2024 6:00 AM EDT Height 188 cm (6' 2") 04/10/2024 9:13 PM EDT Body Mass Index 34.82 04/10/2024 9:13 PM EDT documented in this encounter Functional [...] No 04/10/2024 documented as of this encounter Discharge Summaries * Kaveh Holguin MD - 04/13/2024 1:35 PM EDT [facility] [id number] Admission Date: 04/10/2024 Discharge Date: 04/13/2024 RECOMMENDED TO DO FOR NEXT PROVIDER(S): Follow up with your orthopedic as per schedule Follow up in [facility] clinic for diabetes management REASON(S) FOR MEDICATION CHANGE(S): -Antacid 15 ml very 6 hours for abdominal pain, indigestion. -Continue metoclopramide 10 mg three times a day for gastroparesis -Continue famotidine 20 mg every night at bed time , pantoprazole 40 mg twice a day to reduce acid secretion. -Lidocaine patch 4% daily 1 patch over 12 hours on the skin in the morning, flexeril 10 mg 1 tabletat bed time as needed for musculoskeletal pain , back pain -check your blood sugars before meals and bed time, please follow up in clinic for diabetes management. -continue using daily stool softeners for constipation. DISPOSITION ON DISCHARGE: Home - Self Care Active Hospital Problems Diagnosis *Principal Diagnosis - Acute pancreatitis History of pancreatitis Nausea and vomiting Abdominal pain, generalized Restrictive lung disease secondary to obesity Obstructive sleep apnea DM type 2 causing vascular disease (HCC) Gastroesophageal reflux disease without esophagitis Tobacco use disorder Hyperlipidemia with target LDL less than 70 Type 2 diabetes mellitus with hemoglobin A1c goal of less than 7.0% (HCC) Resolved Hospital Problems No resolved problems to display. ADMISSION HISTORY & PHYSICAL EXAM (focused): HPI: Patient is a 48 yo gentleman with history of DM, HLD, smoker, GERD, DAMION, Restrictive lung disease who came with history epigastric pain, 8/10, radiated to his back on/off for the last month. Patient was in Rehab due to LLE amputation and was in rehab, but he decided to signed himself AMA due to continue abdominal pain. Patient was having some nausea. Patient had a normal bowel movement earlytoday. Denies chest pain, shortness of breath, fever, chills, cough. Patient denies alcohol abuse. Still have his gallbladder. Vitals on admission: BP: 136 mmHg/68 mmHg (04/10/242112) Pulse: 92 (04/10/242112) Resp: 18 (04/10/242112) Temp: 36.11 C (04/10/242112) Temp Summary: Temp Min: 36.1 C (97 F) Max: 36.4 C (97.5 F) SpO2: 93 % (04/10/242112) O2 flow rate: Supplemental O2 Delivery: Constitutional: no acute distress, alert, oriented x 3 HEENT: normal: normocephalic, atraumatic; no masses, tenderness, or adenopathy Eyes: sclera and conjunctiva normal Neck: supple, normal range of motion CV: normal rate and rhythm, no murmur, gallops or rub Chest: normal respiratory effort, lungs clear to auscultation and percussion Abdomen: soft, normal bowel sounds, tenderness epigastric area Musculoskeletal: (-) negative Extremities: left BKA Skin: dry, intact: Neuro: alert, oriented to person, place, and time, normal mental status exam Psych: normal mood and affect HOSPITAL COURSE (focused): 48 yo M who had left BKA at [facility] for diabetes foot infection. hx of gastroparesis,IBD, DM 2, neuropathy, GERD. He left from inpatient rehab on April 08. He came to our ED for abdominal pain and back pain. He reported ongoing abdominal pain and back pain for more than 2 weeks. Work up was unremarkable for acute abdomen, acute cholecystitis. No clear evidence of acute pancreatitis. Recent colonoscopy in February 2024 was unremarkable, EGD showed antral gastritis. There is severe constipation in current CT scan and he was given bowel regimens. Had multiple large bowel movement. He has been on H2 ryan, PPI, Reglan. Add house antacid 15 ml Q 6 H. He feels some relieve today and he is willing to try with carb consistent diet. Continue PO Pepcid 20 mg HS, PO Protonix 40 mg twice a day, PO Reglan 10 mg Q 8 H on discharge. continue bowel regimen with tana lax , colace, senna, fleet enema , Movantik 25 mg daily Continue tylenol prn for mild to moderate pain , flexeril 10 mg tid for muscle relaxant Tramadol 50 mg Q 6 H prn for severe pain His blood glucose are poorly controlled. We are doing low dose insulin because he is not able to eat a whole lot for the past 2 days. Once his intake increase, he can go back to [employer] regimen. He will need MTM clinic follow up for diabetes management. Resume [employer] med's for hypertension, HLD. PT/OT/CM evaluation completed. Made referral to Outpatient PT Left NABILA -suggested post op follow up with his primary orthopedics for removal of key. Operations & Procedures: none Complications: none applicable Significant Lab and Imaging Results: Results for orders placed or performed during the hospital encounter of 04/10/24 COMPREHENSIVE METABOLIC PANEL Result Value Ref Range BUN 24 (H) 6 - 20 mg/dL Creatinine 1.3 (H) 0.6 - 1.2 mg/dL Estimated Glomerular Filtration Rate 69 >=60 mL/min Sodium 137 135 - 146 mmol/L Potassium 4.9 3.5 - 5.1 mmol/L Chloride 99 98 - 107 mmol/L CO2 27 22 - 32 mmol/L Anion Gap 11 7 - 15 mmol/L Glucose 279 (H) 70 - 120 mg/dL Albumin 4.0 3.8 - 5.0 g/dL AST 18 10 - 50 U/L Alkaline Phosphatase 100 35 - 130 U/L Bilirubin, Total 0.3 <=1.2 mg/dL Calcium 9.4 8.4 - 10.2 mg/dL Protein 7.4 6.0 - 8.3 g/dL ALT 30 10 - 50 U/L LIPASE Result Value Ref Range Lipase 242 (H) 13 - 60 U/L URINALYSIS, REFLEX TO MICROSCOPIC Result Value Ref Range Color, Urine Yellow Light Yellow, Yellow, Dark Yellow Clarity, Urine Clear Clear Glucose, Urine 250 (A) Negative mg/dL Bilirubin, Urine Negative Negative Ketone, Urine Negative Negative mg/dL Specific [place], Urine 1.017 1.003 - 1.030 Blood, Urine Negative Negative pH, Urine 7.0 5.0 - 7.5 Units Protein, Urine 30 (A) Negative mg/dL Urobilinogen, Urine 0.2 0.2, 1.0 mg/dL Nitrite, Urine Negative Negative Esterase, Urine Negative Negative CBC Result Value Ref Range WBC 7.63 4.00 - 10.80 K/uL RBC 4.26 4.50 - 5.25 M/uL HGB 11.0 (L) 14.0 - 16.8 g/dL HCT 34.9 (L) 40.0 - 48.4 % MCV 81.9 82.0 - 99.5 fL MCH 25.8 27.0 - 34.0 pg MCHC 31.5 32.0 - 36.0 g/dL RDW 16.6 11.5 - 15.5 % PLT 236 140 - 400 K/uL MPV 9.2 6.6 - 11.1 fL nRBCs 0 <=0 /100 WBCs DIFFERENTIAL, AUTOMATED Result Value Ref Range WBC 7.63 4.00 - 10.80 K/uL Neutrophils % 61.2 40.0 - 75.0 % Lymphocytes % 23.5 18.0 - 42.0 % Monocytes % 8.0 1.0 - 11.0 % Eosinophils % 5.4 0.0 - 6.0 % Basophils % 1.2 0.0 - 2.0 % Immature Granulocytes % 0.7 0.0 - 2.0 % Absolute Neutrophils 4.68 1.80 - 7.70 K/uL Absolute Lymphocytes 1.79 1.00 - 4.80 K/ul Absolute Monocytes 0.61 0.00 - 1.10 K/uL Absolute Eosinophils 0.41 0.00 - 0.70 K/uL Absolute Basophils 0.09 0.00 - 0.20 K/uL Absolute Immature Granulocytes 0.05 0.00 - 0.20 K/uL MAGNESIUM Result Value Ref Range Magnesium 1.6 1.5 - 2.6 mg/dL MICROSCOPIC EXAM, URINE Result Value Ref Range RBC, Urine 0-2 0 - 2 /HPF WBC, Urine 0-2 0 - 2 /HPF Bacteria, Urine 0-25 0 - 25 /HPF BASIC METABOLIC PANEL Result Value Ref Range BUN 23 (H) 6 - 20 mg/dL Creatinine 1.2 0.6 - 1.2 mg/dL Estimated Glomerular Filtration Rate 74 >=60 mL/min Sodium 141 135 - 146 mmol/L Potassium 4.2 3.5 - 5.1 mmol/L Chloride 104 98 - 107 mmol/L CO2 24 22 - 32 mmol/L Anion Gap 13 7 - 15 mmol/L Glucose 123 (H) 70 - 120 mg/dL Calcium 9.1 8.4 - 10.2 mg/dL CBC Result Value Ref Range WBC 6.97 4.00 - 10.80 K/uL RBC 3.94 4.50 - 5.25 M/uL HGB 9.9 (L) 14.0 - 16.8 g/dL HCT 32.7 (L) 40.0 - 48.4 % MCV 83.0 82.0 - 99.5 fL MCH 25.1 27.0 - 34.0 pg MCHC 30.3 32.0 - 36.0 g/dL RDW 16.7 11.5 - 15.5 % PLT 218 140 - 400 K/uL MPV 9.5 6.6 - 11.1 fL nRBCs 0 <=0 /100 WBCs MAGNESIUM Result Value Ref Range Magnesium 1.8 1.5 - 2.6 mg/dL LIPASE Result Value Ref Range Lipase 30 13 - 60 U/L LIPID PANEL WITH DIRECT LDL IF TG IS HIGH Result Value Ref Range Triglycerides 311 (H) <=174 mg/dL Cholesterol 131 <200 mg/dL HDL Cholesterol 32 (L) >39 mg/dL Non-HDL Cholesterol 99 <=159 mg/dL LDL CHOLESTEROL (DIRECT MEASURE) Result Value Ref Range LDL Cholesterol (Direct Measure) 60 <=129 mg/dL LIPASE Result Value Ref Range Lipase 28 13 - 60 U/L BASIC METABOLIC PANEL Result Value Ref Range BUN 15 6 - 20 mg/dL Creatinine 1.1 0.6 - 1.2 mg/dL Estimated Glomerular Filtration Rate 79 >=60 mL/min Sodium 138 135 - 146 mmol/L Potassium 4.2 3.5 - 5.1 mmol/L Chloride 98 98 - 107 mmol/L CO2 24 22 - 32 mmol/L Anion Gap 16 (H) 7 - 15 mmol/L Glucose 250 (H) 70 - 120 mg/dL Calcium 10.1 8.4 - 10.2 mg/dL CBC Result Value Ref Range WBC 6.60 4.00 - 10.80 K/uL RBC 4.58 4.50 - 5.25 M/uL HGB 11.7 (L) 14.0 - 16.8 g/dL HCT 37.5 (L) 40.0 - 48.4 % MCV 81.9 82.0 - 99.5 fL MCH 25.5 27.0 - 34.0 pg MCHC 31.2 32.0 - 36.0 g/dL RDW 16.6 11.5 - 15.5 % PLT 238 140 - 400 K/uL MPV 9.3 6.6 - 11.1 fL nRBCs 0 <=0 /100 WBCs MAGNESIUM Result Value Ref Range Magnesium 1.6 1.5 - 2.6 mg/dL HEPATIC FUNCTION PANEL Result Value Ref Range Albumin 4.1 3.8 - 5.0 g/dL AST 31 10 - 50 U/L Alkaline Phosphatase 115 35 - 130 U/L ALT 44 10 - 50 U/L Bilirubin, Total 0.4 <=1.2 mg/dL Bilirubin, Direct <0.2 0.0 - 0.3 mg/dL Protein 7.7 6.0 - 8.3 g/dL BASIC METABOLIC PANEL Result Value Ref Range BUN 13 6 - 20 mg/dL Creatinine 1.0 0.6 - 1.2 mg/dL Estimated Glomerular Filtration Rate >90 >=60 mL/min Sodium 136 135 - 146 mmol/L Potassium 4.1 3.5 - 5.1 mmol/L Chloride 98 98 - 107 mmol/L CO2 22 22 - 32 mmol/L Anion Gap 16 (H) 7 - 15 mmol/L Glucose 176 (H) 70 - 120 mg/dL Calcium 9.7 8.4 - 10.2 mg/dL CBC Result Value Ref Range WBC 6.11 4.00 - 10.80 K/uL RBC 4.44 4.50 - 5.25 M/uL HGB 11.2 (L) 14.0 - 16.8 g/dL HCT 36.0 (L) 40.0 - 48.4 % MCV 81.1 82.0 - 99.5 fL MCH 25.2 27.0 - 34.0 pg MCHC 31.1 32.0 - 36.0 g/dL RDW 16.5 11.5 - 15.5 % PLT 222 140 - 400 K/uL MPV 9.3 6.6 - 11.1 fL nRBCs 0 <=0 /100 WBCs DIFFERENTIAL, AUTOMATED Result Value Ref Range WBC 6.11 4.00 - 10.80 K/uL Neutrophils % 40.1 40.0 - 75.0 % Lymphocytes % 40.6 18.0 - 42.0 % Monocytes % 10.8 1.0 - 11.0 % Eosinophils % 6.7 (H) 0.0 - 6.0 % Basophils % 1.0 0.0 - 2.0 % Immature Granulocytes % 0.8 0.0 - 2.0 % Absolute Neutrophils 2.45 1.80 - 7.70 K/uL Absolute Lymphocytes 2.48 1.00 - 4.80 K/ul Absolute Monocytes 0.66 0.00 - 1.10 K/uL Absolute Eosinophils 0.41 0.00 - 0.70 K/uL Absolute Basophils 0.06 0.00 - 0.20 K/uL Absolute Immature Granulocytes 0.05 0.00 - 0.20 K/uL GLUCOSE METER, POINT OF CARE Result Value Ref Range Glucose Meter 147 (H) 70 - 120 mg/dL *Note: Due to a large number of results and/or encounters for the requested time period, some results have not been displayed. A complete set of results can be found in Results Review. PROCEDURE INFORMATION: Exam: XR Chest Exam date and time: 04/10/2024 5:08 PM Age: 48 years old Clinical indication: Other: Abdominal pain TECHNIQUE: Imaging protocol: Radiologic exam of the chest. Views: 1 view. COMPARISON: DX XR CHEST 1 VIEW 03/03/2024 5:32 PM FINDINGS: Lungs: There is poor ventilation of the lungs, accounting for mild diffuse increase in pulmonary parenchymal density. Pleural spaces: Unremarkable. No pleural effusion. No pneumothorax. Heart/Mediastinum: There is mild cardiomegaly. Bones/joints: There are mild degenerative changes present. IMPRESSION IMPRESSION: Low lung volumes with atelectatic changes.No focal consolidation. Viral process not excluded. THIS DOCUMENT HAS BEEN ELECTRONICALLY SIGNED BY PIPPA FARRELL MD Exam Ended: 04/10/24 17:17 Last Resulted: 04/10/24 17:46 PROCEDURE INFORMATION: Exam: CT Abdomen And Pelvis Without Contrast Exam date and time: 04/10/2024 5:40 PM Age: 48 years old Clinical indication: Abdominal pain; Additional info: Ongoing bilateral mid back pain and bilateral mid abdominal pain, getting worse. History of hal. Recent constipation. Nausea TECHNIQUE: Imaging protocol: Computed tomography of the abdomen and pelvis without contrast. Radiation optimization: All CT scans at this facility use at least one of these dose optimization techniques: automated exposure control; mA and/or kV adjustment per patient size (includes targeted exams where dose is matched to clinical indication); or iterative reconstruction. COMPARISON: CT ABD/PELVIS W IV CONTRAST - WO ORAL CONTRAST 12/22/2023 1:02 PM FINDINGS: Lungs: There is subpleural atelectasis of the dependent portions of the lungs. Liver: Normal. No mass. Gallbladder and biliary ducts: Normal. No calcified stones. No ductal dilation. Pancreas: Normal. No ductal dilation. Spleen: Normal. No splenomegaly. Adrenal glands: Normal. No mass. Kidneys and ureters: There is no evidence of hydronephrosis. Stomach and bowel: There is excessive colonic stool content. Fluid-filled nonspecific loops of small bowel. Appendix: Appendix not visualized. Intraperitoneal space: Unremarkable. No free air. No significant fluid collection. Vasculature: Unremarkable. No abdominal aortic aneurysm. Lymph nodes: Unremarkable. No enlarged lymph nodes. Urinary bladder: Unremarkable as visualized. Reproductive: Unremarkable as visualized. Bones/joints: The spine demonstrates severe degenerative changes at multiple levels. Soft tissues: Unremarkable. IMPRESSION IMPRESSION: 1. Grossly unremarkable appearance of the kidneys for noncontrast scan. No hydronephrosis 2. Constipation 3. Nonobstructive bowel gas pattern THIS DOCUMENT HAS BEEN ELECTRONICALLY SIGNED BY PIPPA FARRELL MD Exam Ended: 04/10/24 17:53 Last Resulted: 04/10/24 18:09 Results Pending at Discharge: Lab Results Pending at Discharge: BASIC METABOLIC PANEL Routine CBC WITH WBC DIFFERENTIAL Routine MEDICATION UPDATES AT DISCHARGE START taking these medications INSTRUCTIONS house antacid 400-400-40 MG/5ML suspension Commonly known as: Mi-Acid II Notes to patient: Used to treat heartburn and upset stomach and to prevent low calcium levels Take 15 mL by mouth every 6 hours. Lidocaine 4 % Ptch Commonly known as: Aspercreme Start taking on: April 14, 2024 Notes to patient: To ease pain Place 1 Patch over 12 hours topically on the skin in the morning. CHANGE how you take these medications INSTRUCTIONS Gabapentin 100 MG Capsule Commonly known as: Neurontin What changed: how much to take how to take this when to take this additional instructions take 1 capsule by mouth every morning and 2 capsules by mouth at bedtime CONTINUE taking these medications INSTRUCTIONS albuterol HFA 108 (90 BASE) MCG/ACT inhaler Notes to patient: Used to open the airways in lung diseases where spasm may cause breathing problems and prevent breathing problems that happen with exercise inhale 2 puffs by mouth and INTO THE LUNGS every 6 hours if needed for cough shortness of breath orWITHDRAWAL SYMPTOMS aspirin enteric coated 81 MG Tbec Notes to patient: Assists in lowering the risk of heart attack and stroke by preventing blood clotsfrom forming Take 1 Tablet by mouth in the morning. atorvaSTATin 20 MG Tablet Commonly known as: Lipitor Notes to patient: Used to lower bad cholesterol, lower triglycerides, raise good cholesterol (HDL),and slow the progression of heart disease Take 1 Tablet by mouth in the morning. cyclobenzaprine 10 MG Tablet Commonly known as: Flexeril Notes to patient: Used to relax muscles TAKE 1 TABLET BY MOUTH AT BEDTIME ONLY NEEDED dicyclomine 10 MG Capsule Commonly known as: Bentyl Notes to patient: Used to treat GI (gastrointestinal) spasms and irritable bowel syndrome take 1 capsule by mouth four times a day Famotidine 20 MG Tablet Commonly known as: Pepcid Notes to patient: Used to treat or prevent GI (gastrointestinal) ulcers, gastroesophageal reflux disease (GERD; acid reflux), heartburn and sour stomach, and syndromes caused by lots of stomach acid Take 1 Tablet by mouth every night at bedtime. HealthyLax 17 g packet Generic drug: Polyethylene Glycol 3350 Notes to patient: Used to treat constipation Mix 1 Packet in 4 to 8 ounces of any beverage and drink by mouth in the morning. hydroCHLOROthiazide 25 MG Tablet Commonly known as: Hydrodiuril Notes to patient: Used to treat high blood pressure and get rid of extra fluid Take 1 Tablet by mouth in the morning. Insulin Aspart FlexPen 100 UNIT/ML Sopn Notes to patient: Used to lower blood sugar in patients with high blood sugar (diabetes) Inject 32 units with breakfast 22 units with lunch and 22 units with supper plus CF of 1:12 over 150. Max daily dose of 115 units losartan 100 MG Tablet Commonly known as: Cozaar Notes to patient: Used to treat high blood pressure, protect kidney function in patients with diabetes who have protein loss, and lower the chance of stroke in people with high blood pressure and a heart problem called left ventricular hypertrophy Take 1 Tablet by mouth in the morning. Metamucil 0.52 g Capsule Generic drug: Psyllium Notes to patient: Relief of constipation Take 1 Capsule by mouth in the morning and 1 Capsule at noon and 1 Capsule before bedtime. metFORMIN 500 MG Tablet Commonly known as: Glucophage Notes to patient: Used to lower blood sugar in patients with high blood sugar (diabetes) Take 2 Tablets by mouth in the morning and 2 Tablets in the evening. metoclopramide 10 MG Tablet Commonly known as: Reglan take 1 tablet by mouth three times a day ( 30 MINUTES before MEALS ) metoprolol succinate XL 100 MG Tb24 Commonly known as: toPROL XL Notes to patient: Used to treat high blood pressure Take 1 tab by mouth twice per day Movantik 25 MG Tabs Generic drug: Naloxegol Oxalate Notes to patient: Used to treat constipation caused by pain medications take 1 tablet by mouth in the morning ondansetron 4 MG Tablet Commonly known as: Zofran Notes to patient: Used to treat or prevent nausea/vomiting Take 1 Tablet by mouth every 8 hours as needed for Nausea. pantoprazole 40 MG Tbec Commonly known as: Protonix Notes to patient: Used to treat gastroesophageal reflux disease (GERD; acid reflux) and syndromes caused by lots of stomach acid TAKE 1 TABLET BY MOUTH TWICE A DAY pioglitazone 45 MG Tablet Commonly known as: Actos Notes to patient: Used to lower blood sugar in patients with high blood sugar (diabetes) Take 1 Tablet by mouth in the morning. Please fill in about a month- patient is going to be using up his current supply of 15 mg and 30 mg tablets. Spironolactone 25 MG Tablet Commonly known as: Aldactone Notes to patient: Used to get rid of extra fluid and treat heart failure (weak heart), high blood pressure, high aldosterone levels, and kidney problems Take 1 Tablet by mouth in the morning. Torsemide 10 MG Tablet Commonly known as: Demadex Notes to patient: Used to treat high blood pressure and get rid of extra fluid Take 1 Tablet by mouth in the morning. Toujeo SoloStar 300 UNIT/ML Sopn Generic drug: Insulin Glargine (1 Unit Dial) Notes to patient: Used to lower blood sugar in patients with high blood sugar (diabetes) Inject 40 units twice daily- this replaces lantus traMADol 50 MG Tablet Commonly known as: Ultram Notes to patient: Used to ease pain Take 1 Tablet by mouth every 6 hours as needed for Pain, Severe. Unifine Pentips 31G X 8 MM Generic drug: Insulin Pen Needle Use to inject insulin 5 times daily STOP taking these medications Clindamycin HCl 300 MG Capsule SCHEDULED FOLLOW-UP: Future Appointments Appt Date/Time Provider Department 04/14/2024 11:20 AM Velasquez Valencia MD [facility] 05/08/2024 11:40 AM Velasquez Valencia MD [facility] Outpatient Follow Up PHYSICAL THERAPY REFERRAL OP Other Information Indwelling Devices: LINES ALL Duration Continuous Glucose Monitor Left;Lower Abdomen 4 days Peripheral Line Lower;Posterior;Right Arm 20 Gauge 2 days Vital Signs (last recorded): Most Recent Systolic BP: 178 mmHg (04/13/24736) Most Recent Diastolic BP: 85 mmHg (04/13/24736) Pulse: 99 (04/13/24736) Resp: 18 (04/13/24736) Most Recent Temperature: 35.89 C (04/13/24736) Weight: 123 kg (271 lb 2.7 oz) (04/11/24 0600) SpO2: 96 % (04/13/24736) Allergies: Nsaids, Ceclor [cefaclor], and Jardiance [empagliflozin] Activity: as tolerated Diet: diabetic diet Code Status: Full Code Condition on Discharge: stable Isolation status: None Cognition: normal HOSPITAL CONSULTS ORDERED: GASTROENTEROLOGY CONSULT IP ADULT PHYSICAL THERAPY CONSULT IP ADULT OCCUPATIONAL THERAPY CONSULT IP REFERRING PHYSICIAN: Ref: SELF[[id number]] NO STREET ADDRESS AVAILABLE None (office) None (fax) PRIMARY CARE PROVIDER: PCP: Velasquez Valencia MD [address] [place] [phone] (office) [phone] (fax) Note: To contact a physician responsible for this patients hospital care, please call [facility] [phone]. I spent a total of 45 minutes coordinating, documenting, and providing care for this patient excluding time spent in the performance of separately billed services. documented in this encounter Discharge Instructions * Discharge Instr - AVS* Kaveh Holguin MD - 04/13/2024 12:13 PM EDT Discharge Date: 04/13/24 The information below provides you with the instructions and the list of medications you need to betaking following discharge from the hospital. If you have any questions, please ask before leaving. If you have questions after leaving, you can reach us at the numbers below. YOUR HOSPITAL PROVIDERS: Discharging Provider: Kaveh Holguin MD Provider Department: Hospital Medicine To reach this Provider Wednesday through Wednesday (8:00 AM to 4:30 PM) for any questions or test results: Call [phone] For after-hours concerns: Call [phone] and have your provider paged, or the provider alkylation operator for the Department of Hospital Medicine paged. Please note, the discharging provider will not be able to provide you with any medications refills.Please discuss these with your primary care provider. Worsening Symptoms: If you have new symptoms, or your symptoms get worse, please contact your Discharge Provider or Primary Care Provider (PCP). If these providers are not available, you can go to your local [facility] or Urgent Care Clinic during their business hours. In an EMERGENCY situation: Call [phone] or go to the nearest emergency room. A BRIEF SUMMARY OF YOUR HOSPITAL STAY: You came to the hospital with: complaint of abdominal pain Your main diagnosis at discharge was: Abdominal pain likely from gastroparesis Operations & Procedures performed: none Complications: none applicable Inpatient test results that are pending at discharge: none Advance Directive Documented: Advance Directive Does the Patient have an Advance Directive? No YOUR FOLLOW UP APPOINTMENTS: Primary Care Provider Information: PCP: Velasquez Valencia MD [address] [place] [phone] (office) [phone] (fax) An appointment was requested with your PCP (Velasquez Valencia MD) within 7 days. Please follow upwith your primary orthopedic for left leg key removal and post op check (Please take this form to this visit with your primary care physician.) You need the following studies in the future: blood glucose before meals and at bed time INSTRUCTIONS: Diet: Carbohydrate-controlled diet Activity: As tolerated DIABETES EDUCATION Meal Planning: Eat 3 meals per day Do not skip meals - Try to eat 4 to 5 hours apart Do not snack unless discussed with a doctor, dietitian or certified ophthalmic technician Blood Glucose Monitoring: Check blood glucoses daily before each meal and at bedtime Goals for Blood Glucoses: Before meal target: 90-130 mg/dl 2 hours after meal target: 140-180 mg/dl Low Blood Glucose (Hypoglycemia) - what to do: If blood glucose is less than 80 If you have symptoms of a low blood sugar such as dizziness, headache, sweats or shaking Stop what you are doing and take 4 oz juice or 6 oz regular soda or 8 oz milk or 3 glucose tablets Sit and wait 15 minutes and check your blood glucose If your blood glucose is not above 90, repeat the above treatment If after 2 treatments the symptoms are not relieved, call your doctor - Velasquez Valencia MD High Blood Glucose (Hyperglycemia) - what to do: If blood glucose is greater than 300 Drink 12 oz of water every 15 minutes Test for urine ketones if instructed In 30 minutes, wash your hands and again test your blood sugar Call your doctor - Velasquez Valencia MD if results are still above 300 Medications: Please review all medications. If you have any questions please consult your physician. -Antacid 15 ml very 6 hours for abdominal pain, indigestion. -Continue metoclopramide 10 mg three times a day for gastroparesis -Continue famotidine 20 mg every night at bed time , pantoprazole 40 mg twice a day to reduce acid secretion. -Lidocaine patch 4% daily 1 patch over 12 hours on the skin in the morning, flexeril 10 mg 1 tabletat bed time as needed for musculoskeletal pain , back pain -check your blood sugars before meals and bed time, please follow up in clinic for diabetes management. -continue using daily stool softeners for constipation. Additional Instructions: - Call your primary care physician or seek medical attention if there is no bowel movement for 3 days, worsening abdominal pain. documented in this encounter Progress Notes * Kaveh Holguin MD - 04/12/2024 4:41 PM EDT Images from the original note were not included. [facility] 3B-3020/D INTERVAL HISTORY: The patient resting and sleeping well in bed. Once we enters his room and starts conversation, he complains of abdominal pain, He says he can't eat due to worsening abdominal pain with eating. He reports back pain. Denies vomiting, nausea . He keeps turning his body and stretching his legs. Noted to have large bowel movement with stool softeners. Objective Physical Exam Most Recent Vital Signs: BP: 157 mmHg/75 mmHg (04/12/24 1501) Pulse: 98 (04/12/24 1501) Resp: 12 (04/12/24 1501) Temp: 36.11 C (04/12/24 1501) Temp Summary: Temp Min: 35.5 C (95.9 F) Max: 36.1 C (97 F) SpO2: 94 % (04/12/24 1501) O2 flow rate: Supplemental O2 Delivery: Room Air, None (04/12/24 1501) Constitutional: no acute distress HEENT: normal: normocephalic, atraumatic; no masses, tenderness, or adenopathy CV: normal rate and rhythm, no murmur, gallops or rub Chest: normal respiratory effort, breath sounds normal Abdomen: soft, normal bowel sounds, no tenderness, nondistended Extremities: no edema, (+) 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 Skin: warm, dry, intact: Neuro: alert, oriented to person, place, and time Psych: normal mood and affect, nonsuicidal, judgement normal, memory normal Continuous Glucose Monitor Left;Lower Abdomen (Active) Number of days: 3 Peripheral Line Lower;Posterior;Right Arm 20 Gauge (Active) Number of days: 2 STUDIES: Encounter Orders Labs and other studies reviewed with pertinent findings noted below: Latest Reference Range & Units 04/12/24 09:45 Sodium 135 - 146 mmol/L 138 Potassium 3.5 - 5.1 mmol/L 4.2 Chloride 98 - 107 mmol/L 98 CO2 22 - 32 mmol/L 24 BUN 6 - 20 mg/dL 15 Creatinine 0.6 - 1.2 mg/dL 1.1 Estimated Glomerular Filtration Rate >=60 mL/min 79 Anion Gap 7 - 15 mmol/L 16 (H) Glucose 70 - 120 mg/dL 250 (H) Calcium 8.4 - 10.2 mg/dL 10.1 Magnesium 1.5 - 2.6 mg/dL 1.6 Protein 6.0 - 8.3 g/dL 7.7 (H): Data is abnormally high Latest Reference Range & Units 04/12/24 09:45 CBC Rpt ! WBC 4.00 - 10.80 K/uL 6.60 RBC 4.50 - 5.25 M/uL 4.58 HGB 14.0 - 16.8 g/dL 11.7 (L) HCT 40.0 - 48.4 % 37.5 (L) MCV 82.0 - 99.5 fL 81.9 MCH 27.0 - 34.0 pg 25.5 MCHC 32.0 - 36.0 g/dL 31.2 RDW 11.5 - 15.5 % 16.6 PLT 140 - 400 K/uL 238 MPV 6.6 - 11.1 fL 9.3 !: Data is abnormal (L): Data is abnormally low Rpt: View report in Results Review for more information Assessment and Plan IMPRESSION : Principal Problem: Acute pancreatitis Active Problems: Type 2 diabetes mellitus with hemoglobin A1c goal of less than 7.0% (HCC) Hyperlipidemia with target LDL less than 70 Tobacco use disorder Gastroesophageal reflux disease without esophagitis DM type 2 causing vascular disease (HCC) Obstructive sleep apnea Restrictive lung disease secondary to obesity Nausea and vomiting Abdominal pain, generalized History of pancreatitis Resolved Problems: * No resolved hospital problems. * DIFFERENTIAL AND PLAN: 48 yo M who had left BKA at [facility] for diabetes foot infection. hx of gastroparesis,IBD, DM 2, neuropathy, GERD. He left from inpatient rehab on April 08. He came to our ED for abdominal pain and back pain. He reported ongoing abdominal pain and back pain for more than 2 weeks. Work up was unremarkable for acute abdomen, acute cholecystitis. No clear evidence of acute pancreatitis. Recent colonoscopy in February 2024 was unremarkable, EGD showed antral gastritis. There is severe constipation in current CT scan and he was given bowel regimens. Had large bowel movement. Advance diet to full liquid. . Discontinue IV morphine since abdominal exam looks benign. Continue PO Pepcid 20 mg bid , PO Protonix 40 mg daily. Continue IV Reglan 10 mg Q 8 H continue bowel regimen with tana lax , colace, senna, fleet enema , Movantik 25 mg daily Continue tylenol prn for mild to moderate pain , flexeril 10 mg tid for muscle relaxant Tramadol 50 mg Q 6 H prn for severe pain Sliding scale Novolog Insulin , add Lantus coverage for diabetes. Resume [employer] med's for hypertension, HLD. PT/OT/CM consult for discharge plan Left BKA -suggested to post op follow up with his primary orthopedics for removal of stales. PHARMACOLOGIC VTE PROPHYLAXIS: hEParin CODE STATUS: Full Code EXPECTED DISCHARGE DATE: 04/13/2024 I spent a total of 55 minutes coordinating, documenting, and providing care for this patient excluding time spent in the performance of separately billed services. * Kaveh Holguin MD - 04/11/2024 3:46 PM EDT Images from the original note were not included. [facility] 3B-3020/D INTERVAL HISTORY: He complaints of left flank pain . Denies nausea, vomiting, dysuria, fever, chills. Objective Physical Exam Most Recent Vital Signs: BP: 160 mmHg/64 mmHg (04/11/24 1427) Pulse: 96 (04/11/24 1427) Resp: 22 (04/11/24 1427) Temp: 36.11 C (04/11/24 1427) Temp Summary: Temp Min: 35.8 C (96.4 F) Max: 36.1 C (97 F) SpO2: 98 % (04/11/24 1427) O2 flow rate: Supplemental O2 Delivery: Room Air, None (04/11/24 142) Constitutional: no acute distress HEENT: normal: normocephalic, atraumatic; no masses, tenderness, or adenopathy CV: normal rate and rhythm, no murmur, gallops or rub Chest: normal respiratory effort, breath sounds normal Abdomen: soft, normal bowel sounds, no tenderness Extremities: (+) left BKA , the surgical wounds is healing nice and clean. Lafe present. Skin: warm, dry, intact: Neuro: alert, oriented to person, place, and time, normal mental status exam, Glascow Coma Score 15 Psych: normal mood and affect, nonsuicidal, judgement normal, memory normal Continuous Glucose Monitor Left;Lower Abdomen (Active) Number of days: 2 Peripheral Line Lower;Posterior;Right Arm 20 Gauge (Active) Number of days: 1 STUDIES: Encounter Orders Labs and other studies reviewed with pertinent findings noted below: Latest Reference Range & Units 04/11/24 03:45 CBC Rpt ! WBC 4.00 - 10.80 K/uL 6.97 RBC 4.50 - 5.25 M/uL 3.94 HGB 14.0 - 16.8 g/dL 9.9 (L) HCT 40.0 - 48.4 % 32.7 (L) MCV 82.0 - 99.5 fL 83.0 MCH 27.0 - 34.0 pg 25.1 MCHC 32.0 - 36.0 g/dL 30.3 RDW 11.5 - 15.5 % 16.7 PLT 140 - 400 K/uL 218 MPV 6.6 - 11.1 fL 9.5 !: Data is abnormal (L): Data is abnormally low Rpt: View report in Results Review for more information Latest Reference Range & Units 04/11/24 03:45 Sodium 135 - 146 mmol/L 141 Potassium 3.5 - 5.1 mmol/L 4.2 Chloride 98 - 107 mmol/L 104 CO2 22 - 32 mmol/L 24 BUN 6 - 20 mg/dL 23 (H) Creatinine 0.6 - 1.2 mg/dL 1.2 Estimated Glomerular Filtration Rate >=60 mL/min 74 Anion Gap 7 - 15 mmol/L 13 Glucose 70 - 120 mg/dL 123 (H) Calcium 8.4 - 10.2 mg/dL 9.1 Magnesium 1.5 - 2.6 mg/dL 1.8 Lipase 13 - 60 U/L 30 (H): Data is abnormally high Assessment and Plan IMPRESSION : Principal Problem: Acute pancreatitis Active Problems: Type 2 diabetes mellitus with hemoglobin A1c goal of less than 7.0% (HCC) Hyperlipidemia with target LDL less than 70 Tobacco use disorder Gastroesophageal reflux disease without esophagitis DM type 2 causing vascular disease (HCC) Obstructive sleep apnea Restrictive lung disease secondary to obesity Nausea and vomiting Resolved Problems: * No resolved hospital problems. * DIFFERENTIAL AND PLAN: 48 yo M who had left [facility] at [facility] for diabetes foot infection. hx of gastroparesis,IBD, DM 2, neuropathy, GERD. He left from inpatient rehab on April 08. He came to our ED for abdominal pain and back pain. He reported ongoing abdominal pain and back pain for more than 2 weeks. Work up was unremarkable for acute abdomen, acute cholecystitis. No clear evidence of acute pancreatitis. Recent colonoscopy in February 2024 was unremarkable, EGD showed antral gastritis. There is severe constipation in current CT scan. Start clear liquid diet. Change to PO Pepcid 20 mg bid , PO Protonix 40 mg daily. Continue IV Reglan 10 mg Q 8 H Aggressive bowel regimen with tana lax , colace, senna, fleet enema , Movantik 25 mg daily The patient likes IV morphine . Abdominal exam is benign. Discontinue IV morphine. Continue tylenol prn for mild to moderate pain , flexeril 10 mg tid for muscle relaxant Tramadol 50 mg Q 6 H prn for severe pain Sliding scale Novolog Insulin coverage as directed for diabetes. Resume [employer] med's for hypertension, HLD. PHARMACOLOGIC VTE PROPHYLAXIS: hEParin CODE STATUS: Full Code EXPECTED DISCHARGE DATE: 04/11/2024 I spent a total of 55 minutes coordinating, documenting, and providing care for this patient excluding time spent in the performance of separately billed services. documented in this encounter H&P Notes * Cally Hare MD - 04/10/2024 9:57 PM EDT Images from the original note were not included. [facility] 3B-3020/D PRESENTING PROBLEM: Abdominal pain HPI: Patient is a 48 yo gentleman with history of DM, HLD, smoker, GERD, DAMION, Restrictive lung disease who came with history epigastric pain, 8/10, radiated to his back on/off for the last month. Patient was in Rehab due to LLE amputation and was in rehab, but he decided to signed himself AMA due to continue abdominal pain. Patient was having some nausea. Patient had a normal bowel movement earlytoday. Denies chest pain, shortness of breath, fever, chills, cough. Patient denies alcohol abuse. Still have his gallbladder. Subjective Review of Systems Constitutional: Negative for chills and fever. HENT: Negative for ear pain and sore throat. Eyes: Negative for pain and visual disturbance. Respiratory: Negative for shortness of breath, cough Cardiovascular: Negative for chest pain and palpitations. Gastrointestinal: Positive for abdominal pain and vomiting. Genitourinary: Negative for dysuria and hematuria. Musculoskeletal: L BKA Skin: Negative for color change and rash. Neurological: Negative for seizures and syncope. All other systems reviewed and are negative. Patient's past history, medications, and allergies were reviewed. Objective Physical Exam Most Recent Vital Signs: BP: 136 mmHg/68 mmHg (04/10/242112) Pulse: 92 (04/10/242112) Resp: 18 (04/10/242112) Temp: 36.11 C (04/10/242112) Temp Summary: Temp Min: 36.1 C (97 F) Max: 36.4 C (97.5 F) SpO2: 93 % (04/10/242112) O2 flow rate: Supplemental O2 Delivery: Constitutional: no acute distress, alert, oriented x 3 HEENT: normal: normocephalic, atraumatic; no masses, tenderness, or adenopathy Eyes: sclera and conjunctiva normal Neck: supple, normal range of motion CV: normal rate and rhythm, no murmur, gallops or rub Chest: normal respiratory effort, lungs clear to auscultation and percussion Abdomen: soft, normal bowel sounds, tenderness epigastric area Musculoskeletal: (-) negative Extremities: left BKA Skin: dry, intact: Neuro: alert, oriented to person, place, and time, normal mental status exam Psych: normal mood and affect Peripheral Line Lower;Posterior;Right Arm 20 Gauge (Active) Number of days: 0 STUDIES: Encounter Orders Labs and other studies reviewed with pertinent findings noted below: Latest Reference Range & Units 04/10/24 15:08 Sodium 135 - 146 mmol/L 137 Potassium 3.5 - 5.1 mmol/L 4.9 Chloride 98 - 107 mmol/L 99 CO2 22 - 32 mmol/L 27 BUN 6 - 20 mg/dL 24 (H) Creatinine 0.6 - 1.2 mg/dL 1.3 (H) Estimated Glomerular Filtration Rate >=60 mL/min 69 Anion Gap 7 - 15 mmol/L 11 Glucose 70 - 120 mg/dL 279 (H) Calcium 8.4 - 10.2 mg/dL 9.4 Magnesium 1.5 - 2.6 mg/dL 1.6 Protein 6.0 - 8.3 g/dL 7.4 Lipase 13 - 60 U/L 242 (H) Latest Reference Range & Units 04/10/24 15:08 CBC Rpt ! WBC 4.00 - 10.80 K/uL 7.63 RBC 4.50 - 5.25 M/uL 4.26 HGB 14.0 - 16.8 g/dL 11.0 (L) HCT 40.0 - 48.4 % 34.9 (L) MCV 82.0 - 99.5 fL 81.9 MCH 27.0 - 34.0 pg 25.8 MCHC 32.0 - 36.0 g/dL 31.5 RDW 11.5 - 15.5 % 16.6 PLT 140 - 400 K/uL 236 MPV 6.6 - 11.1 fL 9.2 CBC WITH WBC DIFFERENTIAL Rpt ! UA Latest Reference Range & Units 04/10/24 19:06 Color, Urine Light Yellow, Yellow, Dark Yellow Yellow Clarity, Urine Clear Clear Glucose, Urine Negative mg/dL 250 ! Bilirubin, Urine Negative Negative Ketone, Urine Negative mg/dL Negative Specific [place], Urine 1.003 - 1.030 1.017 Blood, Urine Negative Negative pH, Urine 5.0 - 7.5 Units 7.0 Protein, Urine Negative mg/dL 30 ! Urobilinogen, Urine 0.2, 1.0 mg/dL 0.2 Nitrite, Urine Negative Negative Esterase, Urine Negative Negative Bacteria, Urine 0 - 25 /HPF 0-25 WBC, Urine 0 - 2 /HPF 0-2 RBC, Urine 0 - 2 /HPF 0-2 Latest Reference Range & Units 04/10/24 19:06 Color, Urine Light Yellow, Yellow, Dark Yellow Yellow Clarity, Urine Clear Clear Glucose, Urine Negative mg/dL 250 ! Bilirubin, Urine Negative Negative Ketone, Urine Negative mg/dL Negative Specific [place], Urine 1.003 - 1.030 1.017 Blood, Urine Negative Negative pH, Urine 5.0 - 7.5 Units 7.0 Protein, Urine Negative mg/dL 30 ! Urobilinogen, Urine 0.2, 1.0 mg/dL 0.2 Nitrite, Urine Negative Negative Esterase, Urine Negative Negative Bacteria, Urine 0 - 25 /HPF 0-25 WBC, Urine 0 - 2 /HPF 0-2 RBC, Urine 0 - 2 /HPF 0-2 CT abd IMPRESSION: 1. Grossly unremarkable appearance of the kidneys for noncontrast scan. No hydronephrosis 2. Constipation 3. Nonobstructive bowel gas pattern IMPRESSION: Principal Problem: Acute pancreatitis Active Problems: Type 2 diabetes mellitus with hemoglobin A1c goal of less than 7.0% (HCC) Hyperlipidemia with target LDL less than 70 Tobacco use disorder Gastroesophageal reflux disease without esophagitis DM type 2 causing vascular disease (HCC) Obstructive sleep apnea Restrictive lung disease secondary to obesity Nausea and vomiting Resolved Problems: * No resolved hospital problems. * Assessment: Patient is a 48 yo gentleman with history of DM, HLD, smoker, GERD, DAMION, Restrictive lung disease who came with history epigastric pain, 8/10, radiated to his back on/off for the last month -Acute pancreatitis '-DM -HLD -DAMION -Restrictive lung disease -S/P left BKA PLAN: -Tele admit -NPO -IVF -Lipid profile -ISS -F/U labs -I have reviewed the labs and imaging and noted for the above findings. I have reviewed the chart. I spent 75 minute for the patient care, more than half my time was spent reviewing the chart, lab results, imaging and studies, counseling and coordinating care for the patient. I discussed the plan of care with the ED attending and answered all questions that the patient has. PHARMACOLOGIC VTE PROPHYLAXIS:hEParin CODE STATUS: Full Code EXPECTED DISCHARGE DATE: No information available documented in this encounter Consult Notes * Nohemy Miller, OTR/L - 04/12/2024 4:00 PM EDTAssociated Order(s): ADULT OCCUPATIONAL THERAPY CONSULT IP GENERAL EVALUATION - Occupational Therapy [facility] [id number] Name: Bry Akhtar Jr. Location: [facility] 3B-3020/D Date: 04/12/2024 Time: 4:00 PM Bry Akhtar Jr. is a 48 year old male. As per HPI: "Patient is a 48 yo gentleman with history of DM, HLD, smoker, GERD, DAMION, Restrictive lung disease who came with history epigastric pain, 8/10, radiated to his back on/off for the last month. Patient was in Rehab due to LLE amputation and was in rehab, but he decided to signed himself AMA due to continue abdominal pain. Patient was having some nausea. Patient had a normal bowel movement early today. Denies chest pain, shortness of breath, fever, chills, cough. Patient denies alcoholabuse. Still have his gallbladder. Patient Status: Inpatient Insurance: Payor: [facility] Plan: [facility] PLAN [id number] Product Type: *No Product type* Patient Seen: at bedside, nursing cleared patient for therapy Patient Identified By: Name, ID Band and Date Diagnosis: acute pancreatitis; decreased ADLs/transfers (04/12/241599) Status of treatment: OOB evaluation completed (04/12/241599) Orders: OT evaluation and treatment (04/12/241599) Weight Bearing Status: Weight bearing as tolerated (04/12/241599) Precautions: Falls;Safety;Other-Describe (Left BKA) (04/12/241599) Total Treatment Time: 24 (04/12/241599) Past Medical History: Past Medical History: Diagnosis Date Abscess of [...] [facility]) 07/05/2017 Past Surgical History: Past Surgical History: Procedure Laterality Date TOMAS HUTSONW/ROTATOR CUFF Right 12/01/2019 ARTHROSCOPY SHOULDER ROTATOR CUFF performed by Judith Condon DO at OR [facility] COLONOSCOPY, DIAGNOSTIC (RECTUM) 04/18/2015 adenomatous polyp, repeat 5 yrs/[facility] COLONOSCOPY, DIAGNOSTIC (RECTUM) 04/15/2023 poor prep, repeat / [facility] COLONOSCOPY, DIAGNOSTIC (RECTUM) N/A 02/22/2024 normal/recall 5 years/COLONOSCOPY FLEXIBLE PROXIMAL DIAGNOSTIC performed by Marcela Del Valle MD at [facility] EGD, FLEXIBLE, DIAGNOSTIC 10/17/2014 mild-mod inflammation, repeat 1-2 mo/[facility] EGD, FLEXIBLE, DIAGNOSTIC 04/17/2015 normal bx/inpt [facility] EGD, FLEXIBLE, DIAGNOSTIC 05/08/2019 reflux esophagitis, gastritis, duodenitis, repeat 6 wks / [facility] EGD, FLEXIBLE, DIAGNOSTIC 08/18/2019 normal-EGD/[place] EGD, FLEXIBLE, DIAGNOSTIC N/A 05/02/2020 biopsies normal/[facility] EGD, FLEXIBLE, DIAGNOSTIC N/A 02/22/2024 antral gastritis/biopsies normal/ESOPHAGOGASTRODUODENOSCOPY (EGD), FLEXIBLE, TRANSORAL, DIAGNOSTIC performed by Marcela Del Valle MD at OR [facility] INJECT DX/THER SUBSTANCE INTERLAMINAR CERVICAL/THORACIC W IMAGE GUIDE 08/17/2019 INJECTION SPINE LUMBAR CERVICAL OR THORACIC performed by Dario FentonsinsDO at OR [facility] KNEE ARTHROSCOPY, DIAGNOSTIC l knee REMOVAL OF TONSILS, UNDER AGE 12 SHOULDER ARTHROSCOPY, BICEPS TENODESIS Right 12/01/2019 ARTHROSCOPY SHOULDER BICEP TENODESIS performed by Judith Condon DO at OR [facility] SHOULDER ARTHROSCOPY/DECOMPRESSION Right 12/01/2019 ARTHROSCOPY SHOULDER SUBACROMIAL DECOMPRESSION performed by Judith Condon DO at OR [facility] Social History/Disposition Lives with: Friend (04/12/24 1600) Assistance available: Yes (04/12/24 1600) Dwelling type: Single story home (04/12/24 1600) Entry steps: 2 (getting ramp per pt report) (04/12/24 1600) Inside steps: None (04/12/24 1600) Bedroom location: 1st floor (04/12/241599) Bath location: 1st floor full bath (wc will not fit into bathroom, uses BSC. tub/shower combo with lawn chair) (04/12/241599) Prior Level of Function Reported by: Patient (04/12/241599) Ambulation: Non-ambulatory with manual wheelchair (04/12/241599) Grooming: Independent (seated in wc) (04/12/241599) Bathing: Assistance (04/12/241599) Dressing: Assistance (04/12/241599) Feeding: Independent (04/12/241599) Toileting: Assistance (needs assist with meek-care) (04/12/241599) Meal Prep: Dependent (04/12/241599) Homemaking: Dependent (04/12/241599) Shopping: Dependent (04/12/241599) Medication Management: Independent (uses bottles only) (04/12/241599) Money Management: Independent (04/12/241599) 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 Pt agreeable to OT evaluation. Pain: Patient has complaints of pain. Pain located abdomen/lower back. 06/27 superintendent of generation Notified Observations Consciousness: Alert (04/12/241599) Orientation: Oriented times 4 (04/12/241599) Cognitive Limitations: Attention to task (04/12/241599) Psychosocial: Patient can converse in a social setting (04/12/241599) Sitting posture: Normal (04/12/241599) Standing posture: Forward head;Anterior lean;Rounded shoulders (04/12/241599) Safety awareness: The Patient demonstrates carryover of insight during functional tasks. (04/12/241599) Other Findings Endurance: Good;Functional activity;Standing tolerance (04/12/241599) Light touch sensation: Intact (04/12/241599) Edema: No edema noted (04/12/241599) Current Functional Status: Bilateral Upper Extremity Hand Dominance: Right (04/12/241599) Range of Motion: WFL (04/12/241599) Strength Assessment: Deficits noted (04/12/241599) LUE: 3+/5 (04/12/241599) RUE: 3+/5 (04/12/241599) Self Care Able to provide self care: No (04/12/241599) Feeding: Independent (04/12/241599) Grooming: Supervision (Please comment) (04/12/241599) Toileting: Maximal Assistance (transfer CGA; hygiene max A) (04/12/241599) Dressing Upper Body: Supervision (Please comment) (04/12/241599) Lower Body: Contact Guard (04/12/241599) Bathing Upper Body: Supervision (Please comment) (per clinical judgement) (04/12/241599) Lower Body: Contact Guard (04/12/241599) Functional Ambulation Assistive Device: Rolling walker (04/12/241599) Distance in feet:: 4 (04/12/241599) Level of Assistance: Contact Guard (04/12/241599) Bed Mobility Roll (Right): Modified Independent (04/12/241599) Roll (Left): Modified Independent (04/12/241599) Supine-Sit: Modified Independent (04/12/241599) Sit-Supine: Modified Independent (04/12/241599) OT Transfers Sit-Stand: Contact Guard (04/12/24 1600) Stand-Sit: Contact Guard (04/12/241599) Toilet: Contact Guard (04/12/241599) Balance Sit (Static): Normal (04/12/24 1600) Sit (Dynamic): Good (04/12/24 1600) Stand (Static): Fair (04/12/24 1600) Stand (Dynamic): Fair (04/12/24 1600) Alarm Status Patient positioned in: Bed (04/12/241599) With: Call hoffman in reach (04/12/241599) Patient and Family Goals: to get well and to return home Patient Education Education Topic: Role of OT;Plan of care goals;Other - describe (Adaptive Equipment available for toileing hygiene) (04/12/241599) Review of Precautions: Safety;Fall (04/12/241599) Method of Education: Verbalized to patient;Demonstrated to patient (04/12/241599) Education Provided to: Patient (04/12/241599) Response to Education: Needs further education (04/12/241599) Barriers to learning: Medical status (04/12/241599) Preferred learning method: Combination (04/12/241599) Treatment Provided: Therapeutic Activity: 13 minutes Evaluation Low Complexity 11 minutes - 76374: Patient was cooperative and pleasant during treatmentsession. Low complexity evaluation performed and ADL deficit, decreased endurance, and impaired balance deficits were identified that result in activity limitation. The patient does not have any comorbidities that affect occupational performance. There were no modifications necessary to complete the evaluation. Deficits Requiring O.T. Treatment: Deficits requiring O.T. treatment needs: ADL/self-care;Balance;Endurance;Functional mobility;Safety (04/12/241599) Goals: Bathing: Upper: modified independent (100% with device and additional time). Lower: modifiedindependent (100% with device and additional time) Dressing: Upper: modified independent (100% with device and additional time). Lower: modified independent (100% with device and additional time). Transfers with: Toilet: modified independent (with device or slow) Bed to Chair/Wheelchair: modified independent (with device or slow). Demonstrates ability to use toilet aide for meek-care hygiene at mod I level. Demonstrates Grooming at modified independent (100% with device and additional time). Demonstrates toileting at modified independent (100% with device and additional time) Goal Time Frame: Within 10 treatment sessions. Assessment: Pt pleasant and agreeable to OT evaluation. Pt demonstrates: Supine to/from sit Mod. Independent, rolling Mod Independent. LB dressing seated EOB with CGA UB dressing Supervision Toilet transfer to/from BSC with FWW for support with CGA, fair safety. Sit to stand from bed with CGA with FWW for support. Pt reports pain at 9/10 at start of session, remains at 9/10 at end of session, RN notified. Pt presents with deficits in ADLs, transfers, toileting, UB strength, balance, endurance, and safety. Pt would benefit from skilled Occupational Therapy services in order to return to prior level of function. Pt is functioning below baseline level for ADLs/transfers, functional mobility in home setting. OT AM-PAC: 18 OT will follow and treat at the acute care level to maximize functional independence. Would consider home with post-acute care services which may include outpatient therapy or home health. The level of care will be determined in collaboration with the patient, family/caregiver, and care team members. Treatment Plan: Safety, Transfer training, Balance activities: standing, and ADL training and adaptive equipment training Anticipated Frequency (on eval): 1 to 3 times per week (04/12/24 1600) AM-PAC Help From Another Person Eating Meals: None (04/12/241599) Help From Another Person Taking Care of Personal Grooming: A little (04/12/241599) Help From Another Person To Put On/Take Off Upper Body Clothing: A little (04/12/241599) Help From Another Person To Put On/Take Off Lower Body Clothing: A little (04/12/241599) Help From Another Person Toileting: A lot (04/12/241599) Help From Another Person Bathing: A little (04/12/241599) OT AM-PAC Score: 18 (04/12/241599) OT AM-PAC t-Scale Score: 38.66 (04/12/241599) HLM (Highest Level of Mobility) Goal: Level 5 standing (1 or more minutes) (04/12/24 1100) * Maureen Collins, PT - 04/12/2024 11:00 AM EDTAssociated Order(s): ADULT PHYSICAL THERAPY CONSULT IP GENERAL EVALUATION - Physical Therapy [facility]-[address] [id number] Name: Bry Akhtar Jr. Location: [facility] 3B-3020/D Date: 04/12/2024 Time: 11:00 AM Bry Akhtar Zach is a/an 48 year old male. Recently at [facility] where underwent left below knee amputation on 03/12/24. Discharged to inpatient rehab 03/27/24. Left inpatient rehab AMA 04/08/24: "I got tired of laying there in pain." Presented to [facility] ED 04/10/24 with abdominal pain. Patient Status: Inpatient Insurance: Payor: [facility] Plan: [facility] PLAN [place] Product Type: *No Product type* Patient Seen: at bedside Patient Identified By: Name, ID Band and Date Diagnosis: Abdominal pain, recent left below knee amputation (03/12/24) (04/12/24 1100) Status of treatment: OOB evaluation completed (04/12/24 1100) Orders: PT evaluation and treatment (04/12/24 1100) Weight Bearing Status: Non-weight bearing;LLE (04/12/24 1100) Precautions: Falls;Safety (04/12/24 1100) Total Treatment Time--free text: 45 minutes (04/12/24 1100) Past Medical History: Past Medical History: Diagnosis Date Abscess of [...] [facility]) 07/05/2017 Past Surgical History: Past Surgical History: Procedure Laterality Date ARTHO,SHOUL,W/ROTATOR CUFF Right 12/01/2019 ARTHROSCOPY SHOULDER ROTATOR CUFF performed by Judith Condon DO at OR [facility] COLONOSCOPY, DIAGNOSTIC (RECTUM) 04/18/2015 adenomatous polyp, repeat 5 yrs/[facility] COLONOSCOPY, DIAGNOSTIC (RECTUM) 04/15/2023 poor prep, repeat / [facility] COLONOSCOPY, DIAGNOSTIC (RECTUM) N/A 02/22/2024 normal/recall 5 years/COLONOSCOPY FLEXIBLE PROXIMAL DIAGNOSTIC performed by Marcela Del Valle MD at OR [facility] EGD, FLEXIBLE, DIAGNOSTIC 10/17/2014 mild-mod inflammation, repeat 1-2 mo/[facility] EGD, FLEXIBLE, DIAGNOSTIC 04/17/2015 normal bx/inpt [facility] EGD, FLEXIBLE, DIAGNOSTIC 05/08/2019 reflux esophagitis, gastritis, duodenitis, repeat 6 wks / [facility] EGD, FLEXIBLE, DIAGNOSTIC 08/18/2019 normal-EGD/[place] EGD, FLEXIBLE, DIAGNOSTIC N/A 05/02/2020 biopsies normal/EGD EGD, FLEXIBLE, DIAGNOSTIC N/A 02/22/2024 antral gastritis/biopsies normal/ESOPHAGOGASTRODUODENOSCOPY (EGD), FLEXIBLE, TRANSORAL, DIAGNOSTIC performed by Marcela Del Valle MD at OR [facility] INJECT DX/THER SUBSTANCE INTERLAMINAR CERVICAL/THORACIC W IMAGE GUIDE 08/17/2019 INJECTION SPINE LUMBAR CERVICAL OR THORACIC performed by Dario Nails DO at OR [facility] KNEE ARTHROSCOPY, DIAGNOSTIC l knee REMOVAL OF TONSILS, UNDER AGE 10 SHOULDER ARTHROSCOPY, BICEPS TENODESIS Right 12/01/2019 ARTHROSCOPY SHOULDER BICEP TENODESIS performed by Judith Condon DO at OR [facility] SHOULDER ARTHROSCOPY/DECOMPRESSION Right 12/01/2019 ARTHROSCOPY SHOULDER SUBACROMIAL DECOMPRESSION performed by Judith Condon DO at OR [facility] Subjective: Pt agreeable to PT evaluation and treatment Social History/Disposition Lives with: (significant other) (04/12/24 1100) Assistance available: Yes (but likely not sufficient for current needs) (04/12/24 1100) Dwelling type: Single story home (04/12/24 1100) Entry steps: 2 (with current make-shift ramp) (04/12/24 1100) Inside steps: None (04/12/24 1100) Bedroom location: 1st floor (04/12/24 1100) Bath location: 1st floor full bath (wheelchair does not fit, uses rollator as transport chair to get inside) (04/12/241099) Prior Level of Function Reported by: Patient (04/12/241099) Ambulation: Non-ambulatory with manual wheelchair;Transfer via;Ambulatory with assistance and device (current status s/p L BKA) (04/12/241099) Ambulatory Device: Rolling walker (and assist of 1 up to 15 ft) (04/12/241099) Transfer Via: Stand/pivot with assist;Lateral scoot with assist (set-up assistance) (04/12/241099) Observations Consciousness: Alert (04/12/241099) Orientation: Oriented times 4 (04/12/241099) Psychosocial: Patient can communicate basic needs;Patient can converse in a social setting (04/12/241099) Sitting Posture: Forward head;Rounded shoulders (04/12/241099) Standing Posture: Forward head;Rounded shoulders (04/12/241099) Pain: Patient has complaints of pain. Pain located abdomen and back. /10. INTERACTIVE MEDIA DIRECTOR informed. Strength Assessment Strength Assessment: (BLE strength grossly at least 4/5 per functional assessment) (04/12/241099) P.T. Bed Mobility Supine-Sit: Independent (04/12/241099) Sit-Supine: Independent (04/12/241099) Transfers Sit-Stand: Supervision (04/12/241099) Stand-Sit: Supervision (04/12/241099) W/C-Bed/Mat: Supervision (04/12/241099) Balance Sit (Static): Good (04/12/241099) Sit (Dynamic): Good (04/12/241099) Stand (Static): Fair (04/12/241099) Stand (Dynamic): Poor (04/12/241099) Wheelchair Wheelchair mobility: Modified independent (04/12/241099) Wheelchair management: Moderate assistance (04/12/241099) Wheelchair Distance: 300 feet (04/12/241099) Patient and or Family Goal(s): to get well Patient Education Review of Precautions: Safety;Fall (04/12/241099) Safety Awareness: Patient verbalizes insight of current deficits;Patient demonstrates carryover of insight during functional tasks;Needs cueing supervision (04/12/241099) Preferred learning method: Combination (04/12/241099) Barriers to learning: Medical Status (04/12/241099) Topic of Education: Safety with mobility and Fall prevention Method of Education: Verbal discussion and explanation provided to patient: verbalized understanding and or agreement of this information Treatment Provided: Therapeutic Activities 15 minutes: transfer training Evaluation Moderate Complexity 15 minutes - 78085: Patient was cooperative, pleasant, and alert during treatment session. Moderate complexity evaluation performed and 1-2 personal factors or comorbidities were identified that will impact plan of care, including recent left BKA and evolving presentation. Patient presents with limitations in transfers, gait, balance, and safety, which will impact plan of care. These limitations will be addressed by the goals set for this patient. Wheelchair management: 15 minutes Alarm Status Patient positioned in: Bed (04/12/241099) With: Call hoffman in reach (04/12/241099) Goals: Demonstrate Transfers with: Bed to chair: modified independent (with device or slow) Chair to bed: modified independent (with device or slow) Demonstrate Ambulation: assistive device: rolling walker distance in feet: 30 ft+ level of assistance on level surface: supervision (with cues) Demonstrate w/c management: modified independent (with device or slow) Time Frame: 10 sessions Assessment: Bry Akhtar Jr. Was able to complete transfers and stand at rail vs walker up to 1 minute with stand by assist. [facility] mobility score of 17. Will continue to follow while at [facility]. Would consider post-acute care services which may include home health, fci, outpatient therapy, or inpatient rehab. The level of care will be determined in collaboration with the patient, family/caregiver, and care team members. Deficits requiring P.T. treatment needs: Mobility;Balance;Safety (04/12/241099) Equipment Needs: Treatment Plan: Bed mobility training, Transfer training, Gait training, Wheelchair mobility/management training, ROM exercises, Strengthening exercises, Balance activities, and Educate on safety with fall prevention. Anticipated Frequency (on eval): 3 to 5 times per week (04/12/241099) AM PAC Score with Stairs: 17 * Marcela Del Valle MD - 04/12/2024 10:12 AM EDTAssociated Order(s): GASTROENTEROLOGY CONSULT IP CONSULT - Gastroenterology [facility]-[address] [phone] Name: Bry Akhtar Jr. Location: [facility] 3B-3020/D Date: 04/12/2024 Time: 10:12 AM REQUESTING SERVICE: medicine REASON FOR CONSULT: abdominal pain worsening by eating HPI: Bry Akhtar Jr. is a 48 year old male with a hx of uncontrolled DM2, DVT, spinal stenosis, COPD, gastroparesis, HTN, GERD, chronic anemia, and others, admitted 04/10/24 with epigastric pain radiating to the back. S/p recent LLE amputation - signed out AMA from rehab. Labs 04/10/24 showed Lipase 242 which had normalized to 28 yesterday. LFTs have been normal. CT shows a normal pancreas. Patient reports the pain has been present for about 2 weeks or more. He states it is diffuse and constant, but worse with any po intake. On metoclopramide as OP. No n/v or heartburn. On reglan for his gastroparesis. States his bowels vary from constipation to diarrhea. On Movantik and Miralax as OP. Denies rectal bleeding. No fever/chills CTAP - FINDINGS: Lungs: There is subpleural atelectasis of the dependent portions of the lungs. Liver: Normal. No mass. Gallbladder and biliary ducts: Normal. No calcified stones. No ductal dilation. Pancreas: Normal. No ductal dilation. Spleen: Normal. No splenomegaly. Adrenal glands: Normal. No mass. Kidneys and ureters: There is no evidence of hydronephrosis. Stomach and bowel: There is excessive colonic stool content. Fluid-filled nonspecific loops of small bowel. Appendix: Appendix not visualized. Intraperitoneal space: Unremarkable. No free air. No significant fluid collection. Vasculature: Unremarkable. No abdominal aortic aneurysm. Lymph nodes: Unremarkable. No enlarged lymph nodes. Urinary bladder: Unremarkable as visualized. Reproductive: Unremarkable as visualized. Bones/joints: The spine demonstrates severe degenerative changes at multiple levels. Soft tissues: Unremarkable. EGD 02/22/24 - Impression: - Normal esophagus. - Z-line regular. - Normal stomach. - Antral gastritis. Biopsied. - Normal duodenal bulb and second portion of the duodenum. A. Stomach, biopsy for HP: Gastric fundic gland type mucosa with no significant pathologic abnormalities Negative for H pylori by immunostain Colonoscopy 02/22/24 - Impression: - The examined colon appeared normal. - The examination was otherwise normal on direct and retroflexion views. HISTORY: Past Medical History: Past Medical History: Diagnosis Date Abscess of [...] [facility]) 07/05/2017 Past Surgical History: Past Surgical History: Procedure Laterality Date ARTHO,SHOUL,W/ROTATOR CUFF Right 12/01/2019 ARTHROSCOPY SHOULDER ROTATOR CUFF performed by Judith Condon DO at OR [facility] COLONOSCOPY, DIAGNOSTIC (RECTUM) 04/18/2015 adenomatous polyp, repeat 5 yrs/[facility] COLONOSCOPY, DIAGNOSTIC (RECTUM) 04/15/2023 poor prep, repeat / [facility] COLONOSCOPY, DIAGNOSTIC (RECTUM) N/A 02/22/2024 normal/recall 5 years/COLONOSCOPY FLEXIBLE PROXIMAL DIAGNOSTIC performed by Marcela Del Valle MD at OR [facility] EGD, FLEXIBLE, DIAGNOSTIC 10/17/2014 mild-mod inflammation, repeat 1-2 mo/[facility] EGD, FLEXIBLE, DIAGNOSTIC 04/17/2015 normal bx/inpt [facility] EGD, FLEXIBLE, DIAGNOSTIC 05/08/2019 reflux esophagitis, gastritis, duodenitis, repeat 6 wks / [facility] EGD, FLEXIBLE, DIAGNOSTIC 08/18/2019 normal-EGD/[place] EGD, FLEXIBLE, DIAGNOSTIC N/A 05/02/2020 biopsies normal/EGD EGD, FLEXIBLE, DIAGNOSTIC N/A 02/22/2024 antral gastritis/biopsies normal/ESOPHAGOGASTRODUODENOSCOPY (EGD), FLEXIBLE, TRANSORAL, DIAGNOSTIC performed by Marcela Del Valle MD at OR [facility] INJECT DX/THER SUBSTANCE INTERLAMINAR CERVICAL/THORACIC W IMAGE GUIDE 08/17/2019 INJECTION SPINE LUMBAR CERVICAL OR THORACIC performed by Dario Nails DO at OR [facility] KNEE ARTHROSCOPY, DIAGNOSTIC l knee REMOVAL OF TONSILS, UNDER AGE 10 SHOULDER ARTHROSCOPY, BICEPS TENODESIS Right 12/01/2019 ARTHROSCOPY SHOULDER BICEP TENODESIS performed by Judith Condon DO at OR [facility] SHOULDER ARTHROSCOPY/DECOMPRESSION Right 12/01/2019 ARTHROSCOPY SHOULDER SUBACROMIAL DECOMPRESSION performed by Judith Condon DO at OR [facility] Social History: Social History Tobacco Use Smoking status: Every Day Current packs/day: 1.50 Average packs/day: 1.5 packs/day for 33.0 years (49.5 ttl pk-yrs) Types: Cigarettes Smokeless tobacco: Never Tobacco comments: 01/27/23 currently smoking 10-15 cig/day Vaping Use Vaping status: Never Used Substance Use Topics Alcohol use: Yes Comment: 1 beer in the past two years Drug use: Not Currently Types: Marijuana Comment: smoked over 1-2 years ago (approx 2019) Family History: Family History Problem Relation Name Age of Onset Diabetes Mother Endocrine Disorder Mother Dyslipidemia Hypertension Mother Hypertension Father COPD Father age 55 Arthritis Sister No Known Problems Brother Diabetes Aunt (Unspecified) Diabetes Uncle (Unspecified) Diabetes Grandmother (Maternal) Diabetes Grandmother (Paternal) Allergies: Nsaids, Ceclor [cefaclor], and Jardiance [empagliflozin] ROS: Constitutional: (-) fever, chills, sweats Eyes: (-) negative, no scleral icterus, pain, blurred vision, or redness ENT: (-) negative: no acute hearing loss, sinus, ear or throat problems Cardiovascular: (-) chest pain Pulmonary: (-) negative: no cough, wheezing, or shortness of breath Abdominal/GI: as per HPI, otherwise negative Musculoskeletal: (-) negative: no joint swelling or tenderness Endocrine: (-) heat intolerance and (-) cold intolerance Hematology/oncology: (-) negative: no night sweats, masses, or swollen nodes Skin: (-) negative: no rash or jaundice Neurology: (-) negative: no focal neurologic defect or confusion Male : unremarkable PHYSICAL EXAMINATION: Most Recent Vital Signs: BP: 183 mmHg/80 mmHg (04/12/24736) Pulse: 96 (04/12/24736) Resp: 22 (04/12/24736) Temp: 35.5 C (04/12/24736) Temp Summary: Temp Min: 35.5 C (95.9 F) Max: 36.1 C (97 F) SpO2: 95 % (04/12/24736) O2 flow rate: Supplemental O2 Delivery: Room Air, None (04/12/24736) Vital Signs Last 24 Hours: Systolic BP: Most Recent Systolic BP Av.7 mmHg Min: 105 mmHg Max: 183 mmHg Temperature: Most Recent Temperature Av.8 C Min: 35.5 C Max: 36.11 C Pulse: Pulse Av.3 Min: 89 Max: 100 Respirations: Resp Av.6 Min: 20 Max: 22 SpO2: SpO2 Av % Min: 94 % Max: 98 % Constitutional: no acute distress HEENT: normal: normocephalic, atraumatic Eyes: no scleral icterus, redness, or injection Neck: supple, normal range of motion CV: normal rate, normal rhythm Chest: normal respiratory effort, lungs clear to auscultation with equal chest exertion Abdomen: normal: soft, bowel sounds normal, no masses, tenderness or appreciable ascites Musculoskeletal: (-) no joint effusions or tenderness Extremities: no edema, Left BKA Skin: warm and dry, no rashes Neuro: alert Psych: normal mood and affect, nonsuicidal LABS: Labs reviewed. Recent Results (from the past 24 hour(s)) BASIC METABOLIC PANEL Collection Time: 04/12/24 9:45 AM Result Value Ref Range BUN 15 6 - 20 mg/dL Creatinine 1.1 0.6 - 1.2 mg/dL Estimated Glomerular Filtration Rate 79 >=60 mL/min Sodium 138 135 - 146 mmol/L Potassium 4.2 3.5 - 5.1 mmol/L Chloride 98 98 - 107 mmol/L CO2 24 22 - 32 mmol/L Anion Gap 16 (H) 7 - 15 mmol/L Glucose 250 (H) 70 - 120 mg/dL Calcium 10.1 8.4 - 10.2 mg/dL CBC Collection Time: 04/12/24 9:45 AM Result Value Ref Range WBC 6.60 4.00 - 10.80 K/uL RBC 4.58 4.50 - 5.25 M/uL HGB 11.7 (L) 14.0 - 16.8 g/dL HCT 37.5 (L) 40.0 - 48.4 % MCV 81.9 82.0 - 99.5 fL MCH 25.5 27.0 - 34.0 pg MCHC 31.2 32.0 - 36.0 g/dL RDW 16.6 11.5 - 15.5 % PLT 238 140 - 400 K/uL MPV 9.3 6.6 - 11.1 fL nRBCs 0 <=0 /100 WBCs MAGNESIUM Collection Time: 04/12/24 9:45 AM Result Value Ref Range Magnesium 1.6 1.5 - 2.6 mg/dL HEPATIC FUNCTION PANEL Collection Time: 04/12/24 9:45 AM Result Value Ref Range Albumin 4.1 3.8 - 5.0 g/dL AST 31 10 - 50 U/L Alkaline Phosphatase 115 35 - 130 U/L ALT 44 10 - 50 U/L Bilirubin, Total 0.4 <=1.2 mg/dL Bilirubin, Direct <0.2 0.0 - 0.3 mg/dL Protein 7.7 6.0 - 8.3 g/dL IMPRESSION: Bry Akhtar is a(n) 48 year old male admitted with abdominal pain RECOMMENDATIONS/PLAN: Continue Reglan, Movantik and Miralax regularly. Recommend tight glycemic control - last A1C was 10.[address] scan shows excessive colonic stool content - abdominal pain may be exacerbated by constipation. Would ensure an ongoing good bowel regimen. Patient planned for OP EUS due to h/o pancreatitis. Current CT shows normal pancreas and LFTs normal. Supportive care. I will discuss the case with my attending, Dr Del Valle I have reviewed the advanced practitioner's documentation on the date of service referenced in note, and I agree with PE and plan Large abdomen, no significant rebound or guarding, agree with pe and plan as documented. Abd pain - reportedly with lipase elevation in the past but currently with normal lipase and normalct imaging of pancreas. Noted to be constipated currently and this may be a contributor to his pain. Agree with further plan of care as documented - regular bowel regimen, improved glycemic control. OP Eus for further fup of pancreatitis. documented in this encounter Nursing Notes * Mitra Ortiz RN - 04/13/2024 1:30 PM EDT VIRTUAL RN [facility]-[address] [id number] Name: Bry Akhtar JrZach Location: [facility] 3B-3020/D Date: 04/13/2024 Time: 1:30 PM I completed the Discharge Navigator. The patient was in the hospital. I was in a private office space at a [facility] location. After connecting through televTileo, the patient was identified by name and date of and / or wristband checked. Patient (or authorized legal petroleum products sales representative) was then in formed that this was a Virtual Nurse visit and was being conducted confidentially over secure lines. I used a headset and other methods to ensure confidentiality for the patient. Patient acknowledgedconsent and understanding of privacy and security of the Virtual Nurse visit. I presented the opportunity for the patient or authorized legal petroleum products sales representative to ask any questions regarding the visit today. The patient or authorized legal petroleum products sales representative agreed to participate. * Cindi Newton RN - 04/10/2024 11:[address] Hare ok to use pt home dexacom reader, Per pt, monitor placed 04/09/24 @ 1059 AM, due to be changed 04/19/24 @ 1059 AM. * Cindi Newton RN - 04/10/2024 11:13 PM EDT Late entry from 2112, pt arrived via stretcher to 0d, pt stood & pivoted from wheelchair to bed. Pt aaox4, L BKA noted, dressing intact, per pt dressing gets changed once/day at home no drainage noted. VSS, VRN set up to complete admission questions. Call hoffman within reach. Dual Licensed Skin Assessment completed by Nelida Newton RN and Elsie Crowell LPN. The patient is/has a L BKA, 32 key intact, incision approximated, no drainage noted, surrounding skin intact, no visible s/s of infection, healing well. * Tessa Esteban RN - 04/10/2024 9:44 PM EDT VIRTUAL RN [facility]-[address] [id number] Name: Bry Akhtar Jr. Location: [facility] 3B-3020/D Date: 04/10/2024 Time: 9:45 PM I completed the Admission Navigator. The patient was in the hospital. I was not in a hospital or clinic location. After connecting through televTileo, the patient was identified by name and date of and / or wristband checked. Patient (or authorized legal petroleum products sales representative) was then informed that this was a Virtual Nurse visit and was being conducted confidentially over secure lines. I used a headset and other methods to ensure confidentiality for the patient. My office door was closed. No oneelse was in the room with me. Patient acknowledged consent and understanding of privacy and security of the Virtual Nurse visit. I presented the opportunity for the patient or authorized legal petroleum products sales representative to ask any questions regarding the visit today. The patient or authorized legal petroleum products sales representative agreed to participate. documented in this encounter ED Notes * Theresa Silva MD - 04/10/2024 5:08 PM EDTAssociated Order(s): ECG Interpret HISTORY OF PRESENT ILLNESS Bry Akhtar Jr. is a 48 year old male who presents to the ED for evaluation of Abdominal Pain and Back Pain. The patient was seen at 04/10/24 1647. The patient says he left [facility] rehab on April 08. He has had ongoing back pain and abdominal pain for 2 weeks and he says they left him lay in bed. Has worsening discomfort today, bilateral lower back and bilateral mid abdomen. He has been vomiting occasionally at times since he has been home. He has had problems with constipation recently but had a bowel movement last night and again today. Past medical history includes: status post left ankle fusion on 10/20/[address] [facility] presented to [facility] ED 03/03/24 for evaluation of worsening left ankle pain. Patient reports having the hardware removed by Dr. Camacho at [facility] on 02/04/2024, since then he has had a wound that has been draining blood. Patient was transferred to [facility] where he had his hardware-removal surgery on 03/06/2024, for further treatment. The patient subsequently had left dzstd-ias-kvte amputation on March 12. and then was referred to inpatient rehab. The patient says it has been difficult to void ever since his surgery, has difficulty starting. He says he had infection of his private parts while in the hospital but he is not currently on antibiotics. Family also says the patient developed worsening renal function after surgery. Family notes the patient has had abdominal distention recently. He did have some vomiting and rehabbut not much since then. He has had a lot of ongoing nausea since then. Family also says the patient required 1 unit of blood during surgery at [facility] and then had another blood transfusion afterward. The patient still has key at the left BKA stump site. Review of Systems Constitutional: Negative for fever. HENT: Negative for congestion, ear pain, rhinorrhea and sore throat. Respiratory: Negative for cough and shortness of breath. Cardiovascular: Negative for chest pain and leg swelling. Gastrointestinal: Positive for abdominal distention, abdominal pain, constipation, nausea and vomiting. Negative for diarrhea. Genitourinary: Negative for dysuria, frequency and hematuria. Musculoskeletal: Positive for arthralgias and back pain. Negative for myalgias. Skin: Negative for rash. Neurological: Negative for dizziness, weakness, light-headedness and headaches. All other systems reviewed and are negative. The patient's allergies, past history, and medications were reviewed. PHYSICAL EXAM Initial Vitals (see all): BP 101/52 | Pulse 100 | Resp 20 | Temp 97.5 | O2 99 %Weight 141.07 kg | Height 188 cm | BMI 39.93 kg/m2 Initial Pain Assessment (see all): 7 (severe pain)/10, Aching, location: abd and back ([facility] Adult Scale 0-10) Physical Exam Vitals and nursing note reviewed. Constitutional: General: He is in acute distress (Moderate). Appearance: He is obese. He is not ill-appearing, toxic-appearing or diaphoretic. HENT: Head: Normocephalic and atraumatic. Neck: Thyroid: No thyromegaly. Trachea: No tracheal deviation. Cardiovascular: Rate and Rhythm: Normal rate and regular rhythm. Heart sounds: No murmur heard. No gallop. Pulmonary: Effort: Pulmonary effort is normal. No respiratory distress. Breath sounds: Normal breath sounds. Abdominal: General: Bowel sounds are normal. There is distension. Palpations: Abdomen is soft. Tenderness: There is no abdominal tenderness. There is no guarding or rebound. Musculoskeletal: General: No swelling, tenderness or deformity. Normal range of motion. Cervical back: Normal range of motion and neck supple. No muscular tenderness. Right lower leg: No edema. Left lower leg: No edema. Comments: Difficulty with sitting up due to new left BKA status Left Lower Extremity: Left leg is amputated below knee. Lymphadenopathy: Cervical: No cervical adenopathy. Skin: General: Skin is warm and dry. Coloration: Skin is not cyanotic. Findings: No rash. Nails: There is no clubbing. Neurological: General: No focal deficit present. Mental Status: He is alert and oriented to person, place, and time. GCS: GCS eye subscore is 4. GCS verbal subscore is 5. GCS motor subscore is 6. Psychiatric: Mood and Affect: Mood normal. Speech: Speech normal. Behavior: Behavior normal. Behavior is cooperative. PROCEDURES AND TREATMENTS ED Orders | ED Results ECG Interpret Date/Time: 04/10/2024 5:11 PM Performed by: Theresa Silva MD Authorized by: Theresa Silva MD Previous ECG: Previous ECG: Compared to current Comments: Done at 16:58 shows normal sinus rhythm, rate 91. Compared to prior EKG of 03/03/2024 done at 17:41, heart rate has decreased from 111 MEDICAL DECISION MAKING Nursing notes and vital signs were reviewed. ED Course as of 04/10/242209Apr 10, 20241953 Relatively unremarkable urinalysis [DH] 1953 Somewhat elevated lipase compared to recent [DH] 2013 Reassessment: Patient advises that he has 9/10 pain lower back and hypogastric region of the abdomen. Results, newly elevated lipase, and plan for discussion with hospitalist discussed with patient and family. Patient appears nontoxic [DH] ED Course User Index [DH] Theresa Silva MD Differential Diagnoses Based on my history, physical exam, and evaluation, the differential includes, but is not limited, to the following diagnoses: Diverticulitis, doubt bowel obstruction. Fecal impaction, urinary retention, acute kidney injury, complicated urinary tract infection. Amount and/or Complexity of Data Reviewed Labs: ordered. Radiology: ordered. ECG/medicine tests: independent interpretation performed. Risk Prescription drug management. Decision regarding hospitalization. Clinical Impressions Acute pancreatitis, unspecified complication status, unspecified pancreatitis type Acute bilateral low back pain without sciatica Constipation, unspecified constipation type History of left below knee amputation (HCC) Disposition Admitted. I discussed the management of this patient with the admitting provider and I made a decision to admit the patient. Admission Order Ordered Status . 04/10/242029 Admit for Inpatient Services (incl ZPO) ONCE Completed Theresa Silva This chart was completed in part utilizing [employer] Speech Voice Recognition Software. Grammatical errors, random word insertions, prounoun errors, and incomplete sentences are an occasional consequence of this system due to software limitations, ambient noise, and hardware issues. Any formal questions or concerns about the content, text, or information contained within the body of this dictation should be directly addressed to the provider for clarification. Theresa Silva MD 04/10/2024 10:11 PM * Rosa Bland, RN - 04/10/2024 2:52 PM EDT Pt says that he is having lower back pain and abd pain that started "a couple weeks" ago. Says thathe had his LLE amputated on 03/12/24. Says that he was just in a PT center in which he signed himself out AMA. Says that he still has his key in the LLE. Denies fever/chills. documented in this encounter Miscellaneous Notes * Ancillary Progress Note - Becky Shelton COTA - 04/13/2024 1:38 PM EDT Attempted to see pt at 1338, pt sitting at EOB reporting he was leaving for D/C any minute. Pt received and was educated on toilet aid, he verbalized understanding. He required CGA sit <> standand to pivot to W/C to await arrival of ride for D/C. Due to limited time spent with pt no charges for OT services. * Communication - Shelley Parsons PA-C - 04/13/2024 1:30 PM EDT Patient seen this morning - feeling better. Abdominal pain has improved. Denies significant nausea or heartburn. Tolerated breakfast (pancakes) - Feels the addition of House antacid has helped as it it is coatinghis stomach. Bowels are moving well. Labs stable. OP EUS will be arranged for pancreatic evaluation as previously planned. GI will sign off. Please call with questions. * Pt Handout (on AVS) - Elaina Maurer RN - 04/13/2024 1:11 PM EDT Images from the original note were not included. [id number] Gastroparesis Gastroparesis is a disorder that slows or stops the flow of food from your stomach into the small intestine. It's also called delayed gastric emptying. It's caused by a problem with motility. This isthe movement of the muscles in the digestive tract. For many people, gastroparesis is a lifelong health problem. But treatment can help ease symptoms and prevent complications. Read on to learn more about gastroparesis and how it can be managed. Gastroparesis means that food and fluids move too slowly out of the stomach into the duodenum. How gastroparesis develops With normal motility, signals from nerves tell the stomach muscles when to contract. These muscles move food from the stomach into the first part of the small intestine (the duodenum). With gastroparesis, the nerves or muscles are damaged. This causes motility to slow down or stop. As a result, food can't move from the stomach as it should into the small intestine. This delayed emptying can causenausea, vomiting, and other symptoms. Malnutrition can result. Bezoars (hardened lumps of food) canform in the stomach and cause other problems as well. Causes of gastroparesis Gastroparesis can be caused by any of these: Diabetes Surgery of any of the digestive organs, such as the stomach and intestines Certain medicines, such as strong pain medicines (opioids) and some antidepressants Underactive thyroid (hypothyroidism) Central nervous system disorders, such as Parkinson disease and multiple sclerosis Some autoimmune diseases, such as systemic scleroderma. Viral stomach infection In many cases, the cause of gastroparesis may not be known. Symptoms of gastroparesis These can include: Upset stomach (nausea) and vomiting Feeling full quickly when eating Belly pain Heartburn Belly bloating Weight loss Loss of appetite High and low blood sugar levels (in people with diabetes) Diagnosing gastroparesis Your healthcare provider will ask about your symptoms and health history. You?ll also be examined. In addition, blood tests and X-rays are often done to check your health and rule out other problems.To confirm the problem, you may need other tests as well, such as: Upper endoscopy. This is done to see inside the stomach and duodenum. For the test, an endoscopeis used. This is a thin, flexible tube with a tiny camera on the end. It?s inserted through the mouth and down into the stomach and duodenum. Upper gastrointestinal (GI) series. This is done to take X-rays of the upper GI tract from the mouth to the small intestine. For the test, a substance called barium is swallowed. The barium coats the upper GI tract so that it will show up clearly on X-rays. Radioisotope gastric-emptying scan. This is done to measure how quickly food leaves the stomach.For the test, a meal containing a harmless radioactive substance (tracer) is eaten. Then scans of the stomach are done. The tracer shows up clearly on the scans. It shows the movement of the food through the stomach. Gastric (antroduodenal) manometry. This test gives pressure measurements of the stomach and small intestine. It checks how the contractions are working. Wireless capsule study. For this test, you swallow a wireless capsule. The capsule measures how well your stomach empties and how fast food and fluids move through your intestines. You'll pass thecapsule out of your body with a bowel movement. Gastric emptying breath test. This test checks stomach emptying. It measures how much carbon dioxide you breathe out over several hours after eating food. Scintigraphic gastric accommodation. This test measures your stomach contents before and after ameal. It also checks how well your stomach relaxes after you eat food. Treating gastroparesis The goal of treatment is to help you manage your condition. Treatment may include 1 or more of these: Diet changes. You may need to make changes to your eating habits and daily diet. For instance, your healthcare provider may tell you to eat small meals during the day. Doing this can keep you fromfeeling full too quickly. You may be placed on a liquid or soft diet. This means you?ll eat liquid foods or foods that are mashed or put through a brand activation manager. Plus, you may need to stay away from foods high in fats and fiber. These can slow digestion. For more help with your diet, your healthcare provider can refer you to a dietitian. In severe cases, you may need a feeding tube. This sends liquid food or medicine directly to your small intestine, bypassing the stomach. Treating diabetes. If you have diabetes, it's important to control your blood sugar. High sugar levels may make gastroparesis worse. Medicines. These can help manage symptoms, such as nausea and vomiting. They can also improve motility. Each medicine has certain risks and side effects. Your provider can tell you more about any medicine that's prescribed for you. Also, if you're on opioid pain relievers and certain other medicines, your provider may also advise stopping these if they're adding to your gastroparesis. Surgery. You may need to have a tube surgically put into your stomach. The tube removes excess air and fluid. This can ease severe symptoms of nausea and vomiting. In rare cases, other surgery maybe needed on the stomach or small intestine. This is to make a new passageway for food to be emptied from the stomach. Gastric electrical stimulation. This treatment is done less often and may not be available. Yourhealthcare provider can tell you more about this treatment if it's a choice for you. Diabetes and gastroparesis If you have diabetes, gastroparesis can make it harder to manage your blood sugar level. You?ll need to take extra steps in your treatment to prevent complications. Work with your healthcare providerto learn what you can do to protect your health. For more information, contact the [place] [employer]. Long-term concerns With treatment, most people can manage their symptoms and keep up their normal routines. If your symptoms are moderate to severe, you may need to see your healthcare provider more often for checkups.If you have a long-term (chronic) health problem that may be linked to gastroparesis, such as diabetes, regular follow-ups are vital. These can help keep track of your blood sugar control. This is ortiz to successfully managing both conditions. Also, other treatments will likely be needed. Last Reviewed Date: 12/17/202319991373-6736 [employer]. All rights reserved. This information is not intended as a substitute for professional medical care. Always follow your healthcare professional's instructions. * Ancillary Progress Note - Charleen Valerio RN - 04/13/2024 1:09 PM EDT CARE MANAGEMENT - ADULT DISCHARGE NOTE [facility]-[address] [id number] Name: Bry Akhtar Jr. Location: [facility] 3B-3020/D Date: 04/13/2024 Time: 1:09 PM The following coordination of care and discharge plan has been coordinated with the care team, patient, family and/or caregiver according to the patients needs and preferences. Discharge Discharge Was Caregiver/Family/Facility contacted regarding discharge: Yes (04/13/24 1308) Discharge Transportation: Family/Friends drive (04/13/24 1308) Date of scheduled discharge transportation: 04/13/24 (04/13/24 1308) Final Discharge Plan (Complete only at time of Discharge): Home - Self Care (04/13/24 1308) Narrative: Patient discharged home with significant other. Ni will call outpatient therapy center of her choice and schedule PT session for patient based on her schedule preference. Ni to provide transportation on DC. * Pt Handout (on AVS) - Sonia Gaviria RN - 04/13/2024 12:28 PM EDT Images from the original note were not included. [id number] Lidocaine Medicated Patch Brands: Lidoderm, ZTlido Uses This medicine is used for the following purposes: itching pain skin irritation skin wound Instructions DO NOT take this medicine by mouth. Apply the patch to the most painful area. The patch should be removed after 8 or 12 hours depending on the brand of your product. Read the package instructions or ask your pharmacist how long the patch can be applied to the skin. Keep the medicine at room temperature. Avoid heat and direct light. You may cut the patch with scissors if needed. Be sure to cut the patch before peeling away the liner protecting the adhesive. Wash your hands before and after handling this medicine. Do not use if the pouch containing the medicine is torn or damaged. Remove the plastic liner that protects the sticky side of the patch before applying to the skin. Be sure the area of skin is clean and dry before putting on a new patch. Apply the patch only to normal looking skin. Avoid skin that is red, scraped, or damaged. Press the patch firmly for a few seconds to make sure it stays in place. If the patch does not stick, speak with your doctor or pharmacist. Do not cover the patch with bandage or tape unless instructed by your doctor or pharmacist. After removing the patch, fold it together and discard it out of reach of children and pets. Do not dispose of a used patch by flushing it into the toilet. Avoid getting the medicine in the eyes, nose, or mouth. Wash your hands after touching patch. If the patch causes a feeling of burning or pain at the location of the patch, remove the patch until the feeling goes away. If the patch falls off or you forgot to use the patch on time, apply a new patch immediately to a different location. Replace this new patch at your next usual dosing time. Do not apply heat on the area with the patch. Avoid heating blankets, suntan beds, or hot tubs. Ask the doctor or pharmacist if you can bathe, swim or shower while wearing the patch. Clothing may be worn over the patch. Avoid touching or scratching the area of the skin after the patch is removed. Drug interactions can change how medicines work or increase risk for side effects. Tell your healthcare providers about all medicines taken. Include prescription and pdxr-uzc-koneqzz medicines, vitamins, and herbal medicines. Speak with your doctor or pharmacist before starting or stopping any medicine. Tell your doctor if symptoms do not get better or if they get worse. Cautions Some patients taking this medicine have experienced serious side effects. Please speak with your doctor to understand the risks and benefits associated with this medicine. Tell your doctor and pharmacist if you ever had an allergic reaction to a medicine. Do not use the medication any more than instructed. Tell the doctor or pharmacist if you are , planning to be , or . Ask your doctor if patch should be removed before having an MRI scan to avoid serious spear. Do not share this medicine with anyone who has not been prescribed this medicine. Side Effects The following is a list of some common side effects from this medicine. Please speak with your doctor about what you should do if you experience these or other side effects. burning or stinging numbness where the medicine is applied skin irritation where medicine is applied Call your doctor or get medical help right away if you notice any of these more serious side effects: blurry vision shallow, irregular breathing dizziness or drowsiness lack of energy and tiredness fast, irregular, or slow heartbeat mood changes pale or blue skin, lips or fingernails ringing in the ears seizures shortness of breath A few people may have an allergic reaction to this medicine. Symptoms can include difficulty breathing, skin rash, itching, swelling, or severe dizziness. If you notice any of these symptoms, seek medical help quickly. Extra Please speak with your doctor, nurse, or pharmacist if you have any questions about this medicine. [email or web address].[email or web address] [email or web address] IMPORTANT NOTE: This document tells you briefly how to take your medicine, but it does not tell youall there is to know about it. Your doctor or pharmacist may give you other documents about your medicine. Please talk to them if you have any questions. Always follow their advice. There is a more complete description of this medicine available in [place]. Scan this code on your smartphone or tablet or use the web address below. You can also ask your pharmacist for a printout. If you have any questions, please ask your pharmacist. The display and use of this drug information is subject to Terms of Use. Copyright(c) 2023 [employer]. 4374-7379 [employer]. All rights reserved. This information is not intended as a substitute for professional medical care. Always follow your healthcare professional's instructions. * Ancillary Progress Note - Charleen Valerio RN - 04/13/2024 10:38 AM EDT Patient requesting to speak with and shared he would like to go home today. Patient made aware insurance auth was submitted to [facility] this morning. Patient and both agreeable to outpatientphysical therapy if [facility] is not approved but patient is really hoping to be discharged today. Patient in need of a shower transfer bench and spoke with [facility] and this is not a billable item through his insurance but they can purchase out of pocket for $99 or amazon which would be cheaper. 1300- Phone call to Ni significant other to discuss DC planning. 1305- Received return call from Ni who is agreeable to patient returning home and aware to call to arrange outpatient PT as they did not want in home PT. Script to be provided on DC by MD and floor staff. Patient aware auth was submitted for [facility] but wishing to go home today. Ni shares she is on her way to pick patient up and made her aware of the shower transfer bench not being covered by insurance and out of pocket cost. * Ancillary Progress Note - Charleen Valerio RN - 04/13/2024 9:55 AM EDT Auth submitted to [facility] Pending: In clinical review Authorization #[id number] Tracking #[id number] * Care Plan - Cindi Newton RN - 04/13/2024 5:18 AM EDT Clinical Goal(s): pt will remain free of falls this shift (04/12/242024) Possible barriers to meeting goal(s)/advancing plan of care: bed at low level, ambulation device atbedside Stability of the patient: Moderately stable - low risk of patient condition declining or worsening Summary regarding today's goal(s): Met: pt had no falls this shift Recommendations: bed at low level, bed alarm on * Care Plan - Mia Taylor RN - 04/12/2024 6:35 PM EDT Clinical Goal(s): Patient will remain free from falls this shift. (04/12/24 1000) Possible barriers to meeting goal(s)/advancing plan of care: acuity of illness Stability of the patient: Moderately stable - low risk of patient condition declining or worsening Summary regarding today's goal(s): Met: Patient remained free from falls this shift. Recommendations: Maintain fall precautions, use bed/chair alarms, encourage call hoffman use. * Ancillary Progress Note - Charleen Valerio RN - 04/12/2024 12:52 PM EDT CARE MANAGEMENT - ADULT INITIAL SCREENING [facility]-[address] [address] Name: Bry Akhtar Jr. Location: [facility] 3B-3020/D Date: 04/12/2024 Time: 12:52 PM Discussed patient with the interdisciplinary care team. This Chemist Intern performed a chart review and met with patient at bedside and girlfriend Ni on the phone to complete admission screen and assessed needs for transition planning. The human services care specialist role and services were explained and emotional support was provided. Chief Complaint: Abdominal Pain and Back Pain Prior Living Arrangements What was your living situation prior to admission/observation?: Other (Comment) (with girlfriend) (04/12/241248) Living Quarters: House (04/12/241248) Number of steps to enter living quarters:: 0 (04/12/241248) Do you have serious difficulty walking or climbing stairs? (5 years old or older): Yes (04/10/24 3427) History of falling: No (04/12/24 6058) Prior Level of Functioning Describe the patient's ability prior to admission/observation to perform ADLs: Requires assistance (04/12/241248) Requires assistance with: Dressing;Bathing (04/12/241248) Describe the patient's mobility status prior to admission: Patient requires assistance with ambulation (04/12/241248) Patient uses assistive device: Yes (04/12/241248) If yes, choose:: Wheelchair (04/12/241248) Caregiver Information Patient Contacts Name Relation Home Work Mobile Ni Amaya Significant Other [phone] Deya Frederick Other - (no specific identity) [phone] Patient to [facility] 04/10 with diagnosis of acute pancreatitis. Prior to admission patient resided with his girlfriend most of the time. Patient requires assistance with most ADL's and IADL's and girlfriend provides transportation to appointments. Patient shares he was at [facility] last month for left below the knee amputation. Patient shares he was at rehab at [facility] but didn't leave the hospital and did rehab there. Patient would like to go to rehab on DC and [facility] can help himwith his [facility]. Repisodic choices provided for SNF for rehab and opened in [place] to the following per patient/girlfriend's wishes. [facility], [facility], [facility] and [facility]. Phone call to [facility] and they currently do no have any beds. LM [facility] LM with [facility] but then they declining in [place]. Spoke with Sarai at [facility] and would need auth to accept patient. Will follow up with DC planning pending PT/OT evaluations. Ni to provide transportation on DC. Risk Stratification/Psychosocial/Care Gaps Risk Stratification Psycho Social / Medical Concerns Identified: Adjustment to illness/injury (04/12/241248) Accessed [employer] to connect patients to social care resources: No (04/12/241248) OBRA or OPTIONS needed for placement: No (04/12/241248) Readmission Risk Score: 22.76 (04/12/24 1200) AM-PAC Score With Stairs : 17 (04/12/24 1100) Prior to Admission Services Services Prior to Admission [place] Dept[employer] of Aging (PDA) Waiver Program: N/A (04/12/241248) SINGLE [employer]NER [employer]TER Transportation (Services received within the last 30 days): Family/Friends Personal Vehicle (04/12/241248) Outpatient Chemist Intern: Patient Care Team: Prasanth Watson, RN as Site Administrator (Registered Nurse) Patient/Family Expectations: [facility] SNF For further screening information, please refer to the Care Management flow document. * Care Plan - Cindi Newton RN - 04/12/2024 5:22 AM EDT Clinical Goal(s): pt will remain free of falls this shift (04/11/241949) Possible barriers to meeting goal(s)/advancing plan of care: L BKA Stability of the patient: Moderately stable - low risk of patient condition declining or worsening Summary regarding today's goal(s): Met: bed at low level Recommendations: assistive device at bedside * Care Plan - Elaina Maurer RN - 04/11/2024 6:39 PM EDT Clinical Goal(s): Patient will state pain control <7/10 by end of shift (04/11/24 0830) Possible barriers to meeting goal(s)/advancing plan of care: Acuity of illness Stability of the patient: Moderately stable - low risk of patient condition declining or worsening Summary regarding today's goal(s): Not Met: Patient continued to state constate pain at end of shift Recommendations: Continue plan of care, try lidocaine patch, heat, distraction techniques, etc * Care Plan - Cindi Newton RN - 04/11/2024 5:08 AM EDT Clinical Goal(s): pt will remain free of falls this shift (04/10/242124) Possible barriers to meeting goal(s)/advancing plan of care: L BKA Stability of the patient: Moderately stable - low risk of patient condition declining or worsening Summary regarding today's goal(s): Met: pt had no falls this shift Recommendations: bed at low level * Medical Necessity - Carlota Vargas RN - 04/10/2024 10:14 PM EDT AdmissionCare Guideline: Pancreatitis - INPT, Inpatient Based on the indications selected for the patient, the bed status of Inpatient was determined to beMET The following indications were selected as present at the time of evaluation of the patient: - Clinical Indications for Admission to Inpatient Care - Admission is indicated for 1 or more of the following: - Abdominal pain - Serum lipase greater than 3 times the upper limit of normal, or urinary trypsinogen-2 greater than 50 ng/mL AdmissionCare documentation entered by: Carlota Vargas [facility], 28th edition, Copyright 2023 [facility] [employer] [facility] All Rights Reserved. [id number]:14:19-04:00 Solely for purpose of utilization review and payment; not a diagnostic tool * ED Body And Fender Worker Note - Alma Delia Jones LPN - 04/10/2024 5:33 PM EDT Patient presents with complaints of lower abdominal pain radiating into his back x 2 weeks. States he was at an inpatient rehab facility and started having the pain, states it was left untreated so he signed out AMA. Pain has been worsening. Rates pain at an 8/10 at this time describes it as aching. Assessment completed, see flowsheets for details. Bladder scan completed and shower 49 mLs. Needs met, call hoffman within reach and use reinforced. 1904: UA collected and sent per order. Patient resting on stretcher at this time. 2034: NSS infusion started per order See MAR for details. 2104: Report called to 3b documented in this encounter Plan of Treatment Upcoming Encounters Date Type Department Care Team (Late st Contact Info) Description 04/14/2024 11:20 AM EDT Office Visit [facility] [address] [place] [address] Velasquez Valencia [facility] [address] [facility] [address] 04/14/2024 6:10 PM EDT Pharmacy Pharm[facility], [facility] [address] [place] [address] [facility] [address] [place] [address] 05/08/2024 11:40 AM EDT Office Visit Family [facility] [address] [place] [id number] Velasquez Valencia MD [address] [place] [facility] [place] [address] Scheduled Procedures Name Priority Associated Diagnoses Date/Ti me COLONOSCOPY FLEXIBLE PROXIMA L DIAGNOSTIC Recall Screening for colon cancer Scheduled Referrals Name Type Priority Associated Diagnoses Orde r Schedule PHYSICAL THERAPY REFERRAL OP Referral Within 3 days (urgent) 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) Ordered: 04/13/2024 Health Maintenance Due Date Last Done Comments [...] this encounter Medical Devices Implanted Type Area Visual Communications Instructor Device Identifier Shelf Expiration Date Model / Serial / Lot Suture Buchanan Dbl Load 4.75mm - [id number] Implanted:Qty: 1 on 12/01/2019 by Judith Condon DO at OR [facility] Right: Shoulder [employer] 07/17/2021 [id number] -2 / / [id number] Suture Buchanan Dbl Load 5.5mm - [id number] Implanted:Qty: 1 on 12/01/2019 by Judith Condon DO at OR [facility] Right: Shoulder [employer] 09/16/2021 [id number] -2 / / [id number] documented as of this encounter Procedures Procedure Name Priority Date/Time Associated Diagnosis Comments DIFFERENTIAL, AUTOMATED Routine 04/13/2024 4:30 AM EDT BASIC METABOLIC PANEL Routine 04/13/2024 4:30 AM EDT CBC Routine 04/13/2024 4:30 AM EDT CBC Routine 04/13/2024 4:30 AM EDT HEPATIC FUNCTION PANEL Routine 04/12/2024 9:45 AM EDT BASIC METABOLIC PANEL Routine 04/12/2024 9:45 AM EDT CBC Routine 04/12/2024 9:45 AM EDT MAGNESIUM Routine 04/12/2024 9:45 AM EDT LIPID PANEL WITH DIRECT LDL IF TG IS HIGH Routine 04/11/2024 3:45 AM EDT BASIC METABOLIC PANEL Routine 04/11/2024 3:45 AM EDT LIPASE Add-on 04/11/2024 3:45 AM EDT LIPASE Routine 04/11/2024 3:45 AM EDT CBC Routine 04/11/2024 3:45 AM EDT MAGNESIUM Routine 04/11/2024 3:45 AM EDT LDL CHOLESTEROL (DIRECT MEASURE) Routine 04/11/2024 3:45 AM EDT GLUCOSE METER, POINT OF CARE [place] 04/10/2024 9:50 PM EDT MICROSCOPIC EXAM, URINE STAT 04/10/2024 7:06 PM EDT URINALYSIS, REFLEX TO MICROSCOPIC STAT 04/10/2024 7:[address] ABD/PELVIS WO IV/ORAL CONTRAST STAT 04/10/2024 5:53 PM EDT Constipation, unspecified constipation type Pain in thoracic spine Nausea XR CHEST 1 VIEW STAT 04/10/2024 5:17 PM EDT Atelectasis Other specified symptoms and signs involving the circulatory and respiratory systems Abdominal pain ECG INTERPRET Routine 04/10/2024 5:11 PM EDT EXTRA LIGHT BLUE TOP STAT 04/10/2024 3:08 PM EDT DIFFERENTIAL, AUTOMATED STAT 04/10/2024 3:08 PM EDT COMPREHENSIVE METABOLIC PANEL STAT 04/10/2024 3:08 PM EDT CBC STAT 04/10/2024 3:08 PM EDT LIPASE STAT 04/10/2024 3:08 PM EDT CBC STAT 04/10/2024 3:08 PM EDT MAGNESIUM Add-on 04/10/2024 3:08 PM EDT documented in this encounter Results * (ABNORMAL) DIFFERENTIAL, AUTOMATED (04/13/2024 4:30 AM EDT) WBC 6.11 4.00 - 10.80 K/uL 04/13/2024 4:56 AM EDT LABORATORY [facility] Neutrophils % 40.1 40.0 - 75.0 % 04/13/2024 4:56 AM EDT LAB[facility]ATORY [facility] Lymphocytes % 40.6 18.0 - 42.0 % 04/13/2024 4:56 AM EDT LAB[facility]ATORY [facility] Monocytes % 10.8 1.0 - 11.0 % 04/13/2024 4:56 AM EDT LAB[facility]ATORY [facility] Eosinophils % 6.7(H) 0.0 - 6.0 % 04/13/2024 4:56 AM EDT LAB[facility]ATORY [facility] Basophils % 1.0 0.0 - 2.0 % 04/13/2024 4:56 AM EDT LABORATORY GL Immature Granulocytes % 0.8 0.0 - 2.0 % 04/13/2024 4:56 AM EDT LABORATORY GL Absolute Neutrophils 2.45 1.80 - 7.70 K/uL 04/13/2024 4:56 AM EDT LABORATORY GL Absolute Lymphocytes 2.48 1.00 - 4.80 K/ul 04/13/2024 4:56 AM EDT LABORATORY GL Absolute Monocytes 0.66 0.00 - 1.10 K/uL 04/13/2024 4:56 AM EDT LABORATORY GL Absolute Eosinophils 0.41 0.00 - 0.70 K/uL 04/13/2024 4:56 AM EDT LABORATORY GL Absolute Basophils 0.06 0.00 - 0.20 K/uL 04/13/2024 4:56 AM EDT LABORATORY GL Absolute Immature Granulocytes 0.05 0.00 - 0.20 K/uL 04/13/2024 4:56 AM EDT LABORATORY [facility] Blood Venous blood specimen / Unknown Venipuncture / Unknown 04/13/2024 4:30 AM EDT 04/13/2024 4:51 AM EDT Min Min Ezio COSTA LAB BLOOD ORDERABLES LABORATORY [address] [address] * (ABNORMAL) CBC (04/13/2024 4:30 AM EDT) WBC 6.11 4.00 - 10.80 K/uL 04/13/2024 4:56 AM EDT LABORATORY [facility] RBC 4.44 4.50 - 5.25 M/uL 04/13/2024 4:56 AM EDT LABORATORY GL HGB 11.2(L) 14.0 - 16.8 g/dL 04/13/2024 4:56 AM EDT LAB[facility]ATORY [facility] HCT 36.0(L) 40.0 - 48.4 % 04/13/2024 4:56 AM EDT LABORATORY GL MCV 81.1 82.0 - 99.5 fL 04/13/2024 4:56 AM EDT LABORATORY [facility] MCH 25.2 27.0 - 34.0 pg 04/13/2024 4:56 AM EDT LABORATORY [facility] MCHC 31.1 32.0 - 36.0 g/dL 04/13/2024 4:56 AM EDT LABORATORY [facility] RDW 16.5 11.5 - 15.5 % 04/13/2024 4:56 AM EDT LABORATORY [facility] PLT 222 140 - 400 K/uL 04/13/2024 4:56 AM EDT LABORATORY [facility] MPV 9.3 6.6 - 11.1 fL 04/13/2024 4:56 AM EDT LABORATORY [facility] nRBCs 0 <=0 /100 WBCs 04/13/2024 4:56 AM EDT LABORATORY [facility] Blood Venous blood specimen / Unknown Venipuncture / Unknown 04/13/2024 4:30 AM EDT 04/13/2024 4:51 AM EDT Min Min Ezio COSTA LAB BLOOD ORDERABLES LABORATORY [facility] [address] [place] [address] * (ABNORMAL) BASIC METABOLIC PANEL (04/13/2024 4:30 AM EDT) BUN 13 6 - 20 mg/dL 04/13/2024 5:25 AM EDT LABORATORY GL Creatinine 1.0 0.6 - 1.2 mg/dL 04/13/2024 5:25 AM EDT LABORATORY [facility] Estimated Glomerular Filtration Rate >90 >=60 mL/min 04/13/2024 5:25 AM EDT LABORATORY GL Comment:eGFR is calculated b ased on the CKD-EPI 2020 equation Sodium 136 135 - 146 mmol/L 04/13/2024 5:25 AM EDT LAB[facility]ATORY [facility] Potassium 4.1 3.5 - 5.1 mmol/L 04/13/2024 5:25 AM EDT LAB[facility]ATORY [facility] Chloride 98 98 - 107 mmol/L 04/13/2024 5:25 AM EDT LAB[facility]ATORY [facility] CO2 22 22 - 32 mmol/L 04/13/2024 5:25 AM EDT LAB[facility]ATORY [facility] Anion Gap 16(H) 7 - 15 mmol/L 04/13/2024 5:25 AM EDT LAB[facility]ATORY [facility] Glucose 176(H) 70 - 120 mg/dL 04/13/2024 5:25 AM EDT LAB[facility]ATORY [facility] Calcium 9.7 8.4 - 10.2 mg/dL 04/13/2024 5:25 AM EDT LAB[facility]ATORY [facility] Blood Venous blood specimen / Unknown Venipuncture / Unknown 04/13/2024 4:30 AM EDT 04/13/2024 4:50 AM EDT Min Min Ezio COSTA LAB BLOOD ORDERABLES Performing Organization Address City/[facility]/ZIP Co de Phone Number LABORATORY [address] [address] * HEPATIC FUNCTION PANEL (04/12/2024 9:45 AM EDT) Albumin 4.1 3.8 - 5.0 g/dL 04/12/2024 10:20 AM EDT LABORATORY [facility] AST 31 10 - 50 U/L 04/12/2024 10:20 AM EDT LABORATORY [facility] Alkaline Phosphatase 115 35 - 130 U/L 04/12/2024 10:20 AM EDT LABORATORY [facility] ALT 44 10 - 50 U/L 04/12/2024 10:20 AM EDT LAB[facility]ATORY [facility] Bilirubin, Total 0.4 <=1.2 mg/dL 04/12/2024 10:20 AM EDT LAB[facility]ATORY [facility] Bilirubin, Direct <0.2 0.0 - 0.3 mg/dL 04/12/2024 10:20 AM EDT LAB[facility]ATORY [facility] Protein 7.7 6.0 - 8.3 g/dL 04/12/2024 10:20 AM EDT LAB[facility]ORY [facility] Blood Venous blood specimen / Unknown Venipuncture / Unknown 04/12/2024 9:45 AM EDT 04/12/2024 9:59 AM EDT Min Min Ezio COSTA LAB BLOOD ORDERABLES Performing Organization Address City/[facility]/ZIP Co de Phone Number LABORATORY [facility] [address] [place] [address] * MAGNESIUM (04/12/2024 9:45 AM EDT) Magnesium 1.6 1.5 - 2.6 mg/dL 04/12/2024 10:20 AM EDT LABORATORY [facility] Blood Venous blood specimen / Unknown Venipuncture / Unknown 04/12/2024 9:45 AM EDT 04/12/2024 9:59 AM EDT Min Min Ezio COSTA LAB BLOOD ORDERABLES LABORATORY [facility] [address], [place] [id number] * (ABNORMAL) CBC (04/12/2024 9:45 AM EDT) Pathologist [facility] WBC 6.60 4.00 - 10.80 K/uL 04/12/2024 10:03 AM EDT LABORATORY [facility] RBC 4.58 4.50 - 5.25 M/uL 04/12/2024 10:03 AM EDT LABORATORY [facility] HGB 11.7(L) 14.0 - 16.8 g/dL 04/12/2024 10:03 AM EDT LABORATORY [facility] HCT 37.5(L) 40.0 - 48.4 % 04/12/2024 10:03 AM EDT LABORATORY [facility] MCV 81.9 82.0 - 99.5 fL 04/12/2024 10:03 AM EDT LABORATORY [facility] MCH 25.5 27.0 - 34.0 pg 04/12/2024 10:03 AM EDT LABORATORY [facility] MCHC 31.2 32.0 - 36.0 g/dL 04/12/2024 10:03 AM EDT LABORATORY [facility] RDW 16.6 11.5 - 15.5 % 04/12/2024 10:03 AM EDT LABORATORY [facility] PLT 238 140 - 400 K/uL 04/12/2024 10:03 AM EDT LABORATORY [facility] MPV 9.3 6.6 - 11.1 fL 04/12/2024 10:03 AM EDT LABORATORY [facility] nRBCs 0 <=0 /100 WBCs 04/12/2024 10:03 AM EDT LAB[facility]ATORY [facility] Blood Venous blood specimen / Unknown Venipuncture / Unknown 04/12/2024 9:45 AM EDT 04/12/2024 9:59 AM EDT Min Min Ezio COSTA LAB BLOOD ORDERABLES LABORATORY [address] [address] * (ABNORMAL) BASIC METABOLIC PANEL (04/12/2024 9:45 AM EDT) BUN 15 6 - 20 mg/dL 04/12/2024 10:20 AM EDT LABORATORY GL Creatinine 1.1 0.6 - 1.2 mg/dL 04/12/2024 10:20 AM EDT LABORATORY [facility] Estimated Glomerular Filtration Rate 79 >=60 mL/min 04/12/2024 10:20 AM EDT LABORATORY [facility] Comment:eGFR is calculated b ased on the CKD-EPI 2020 equation Sodium 138 135 - 146 mmol/L 04/12/2024 10:20 AM EDT LABORATORY [facility] Potassium 4.2 3.5 - 5.1 mmol/L 04/12/2024 10:20 AM EDT LAB[facility]ATORY [facility] Chloride 98 98 - 107 mmol/L 04/12/2024 10:20 AM EDT LAB[facility]ATORY [facility] CO2 24 22 - 32 mmol/L 04/12/2024 10:20 AM EDT LAB[facility]ATORY [facility] Anion Gap 16(H) 7 - 15 mmol/L 04/12/2024 10:20 AM EDT LABORATORY [facility] Glucose 250(H) 70 - 120 mg/dL 04/12/2024 10:20 AM EDT LAB[facility]ATORY [facility] Calcium 10.1 8.4 - 10.2 mg/dL 04/12/2024 10:20 AM EDT LABORATORY GL Blood Venous blood specimen / Unknown Venipuncture / Unknown 04/12/2024 9:45 AM EDT 04/12/2024 9:59 AM EDT Min Min Ezio COSTA LAB BLOOD ORDERABLES LABORATORY GL [address] [place] [address] * LIPASE (04/11/2024 3:45 AM EDT) Lipase 28 13 - 60 U/L 04/12/2024 9:32 AM EDT LABORATORY [facility] Blood Venous blood specimen / Unknown Venipuncture / Unknown 04/11/2024 3:45 AM EDT 04/11/2024 4:11 AM EDT Kaveh Holguin MD LAB BLOOD ORDERABLES Performing Organization Address [facility] Co de Phone Number LABORATORY [facility] [address] [place] [address] * LDL CHOLESTEROL (DIRECT MEASURE) (04/11/2024 3:45 AM EDT) LDL Cholesterol (Direct Measure) 60 <=129 mg/dL 04/11/2024 3:14 PM EDT LABORATORY [facility] Comment: LDL Cholesterol Reference Ranges (mg/dL): <70 Target level for high risk ASCVD patient <100 Optimal for general population 100-129 Near optimal for general population 130-159 Borderline high 160-189 High >=190 Very high Blood Venous blood specimen / Unknown Venipuncture / Unknown 04/11/2024 3:45 AM EDT 04/11/2024 4:11 AM EDT Cally Hare MD LAB BLOOD ORDERABL ES Performing Organization Address [facility] Co de Phone Number LABORATORY [place] [address] [place] [address] * (ABNORMAL) LIPID PANEL WITH DIRECT LDL IF TG IS HIGH (04/11/2024 3:45 AM EDT) Triglycerides 311(H) <=174 mg/dL 04/11/2024 2:50 PM EDT LABORATORY [facility] Comment: Triglyceride Reference Ranges (mg/dL): <150 Acceptable 150-174 Borderline high 175-499 High >=500 Very high Cholesterol 131 <200 mg/dL 04/11/2024 2:50 PM EDT LABORATORY [facility] Comment: Total Cholesterol Reference Ranges (mg/dL): <200 Desirable 200-239 Borderline high >=240 High HDL Cholesterol 32(L) >39 mg/dL 2:50 PM EDT LABORATORY [facility] Comment: HDL Cholesterol Reference Ranges (mg/dL): >=60 High (Desirable) <50 Low (Undesirable) For Females <40 Low (Undesirable) For Males Non-HDL Cholesterol 99 <=159 mg/dL 04/11/2024 2:50 PM EDT LABORATORY [facility] Comment: Non-HDL Cholesterol Reference Range (mg/dL): <100 Target level for high risk ASCVD patient <130 Optimal for general population 130-159 Near optimal for general population 160-189 Borderline High 190-219 High >=220 Very High Blood Venous blood specimen / Unknown Venipuncture / Unknown 04/11/2024 3:45 AM EDT 04/11/2024 4:11 AM EDT Cally Hare MD LAB BLOOD ORDERABL ES LABORATORY [facility] [address] [place] [address] * LIPASE (04/11/2024 3:45 AM EDT) Lipase 30 13 - 60 U/L 04/11/2024 4:42 AM EDT LABORATORY [facility] Blood Venous blood specimen / Unknown Venipuncture / Unknown 04/11/2024 3:45 AM EDT 04/11/2024 4:11 AM EDT Cally Hare MD LAB BLOOD ORDERABL ES LABORATORY [address] [id number] * MAGNESIUM (04/11/2024 3:45 AM EDT) Magnesium 1.8 1.5 - 2.6 mg/dL 04/11/2024 4:42 AM EDT LABORATORY [facility] Blood Venous blood specimen / Unknown Venipuncture / Unknown 04/11/2024 3:45 AM EDT 04/11/2024 4:11 AM EDT Cally Hare MD LAB BLOOD ORDERABL ES LABORATORY [facility] [address] [place] [address] * (ABNORMAL) CBC (04/11/2024 3:45 AM EDT) WBC 6.97 4.00 - 10.80 K/uL 04/11/2024 4:16 AM EDT LABORATORY [facility] RBC 3.94 4.50 - 5.25 M/uL 04/11/2024 4:16 AM EDT LABORATORY [facility] HGB 9.9(L) 14.0 - 16.8 g/dL 04/11/2024 4:16 AM EDT LABORATORY [facility] HCT 32.7(L) 40.0 - 48.4 % 04/11/2024 4:16 AM EDT LABORATORY [facility] MCV 83.0 82.0 - 99.5 fL 04/11/2024 4:16 AM EDT LABORATORY [facility] MCH 25.1 27.0 - 34.0 pg 04/11/2024 4:16 AM EDT LABORATORY [facility] MCHC 30.3 32.0 - 36.0 g/dL 04/11/2024 4:16 AM EDT LABORATORY [facility] RDW 16.7 11.5 - 15.5 % 04/11/2024 4:16 AM EDT LABORATORY [facility] PLT 218 140 - 400 K/uL 04/11/2024 4:16 AM EDT LABORATORY [facility] MPV 9.5 6.6 - 11.1 fL 04/11/2024 4:16 AM EDT LABORATORY [facility] nRBCs 0 <=0 /100 WBCs 04/11/2024 4:16 AM EDT LABORATORY [facility] Blood Venous blood specimen / Unknown Venipuncture / Unknown 04/11/2024 3:45 AM EDT 04/11/2024 4:11 AM EDT Cally Hare MD LAB BLOOD ORDERABL ES LABORATORY [facility] [address] [place] [address] * (ABNORMAL) BASIC METABOLIC PANEL (04/11/2024 3:45 AM EDT) BUN 23(H) 6 - 20 mg/dL 04/11/2024 4:42 AM EDT LABORATORY [facility] Creatinine 1.2 0.6 - 1.2 mg/dL 04/11/2024 4:42 AM EDT LABORATORY [facility] Estimated Glomerular Filtration Rate 74 >=60 mL/min 04/11/2024 4:42 AM EDT LABORATORY [facility] Comment:eGFR is calculated b ased on the CKD-EPI 2020 equation Sodium 141 135 - 146 mmol/L 04/11/2024 4:42 AM EDT LABORATORY [facility] Potassium 4.2 3.5 - 5.1 mmol/L 04/11/2024 4:42 AM EDT LAB[facility]ATORY [facility] Chloride 104 98 - 107 mmol/L 04/11/2024 4:42 AM EDT LAB[facility]ATORY [facility] CO2 24 22 - 32 mmol/L 04/11/2024 4:42 AM EDT LAB[facility]ATORY [facility] Anion Gap 13 7 - 15 mmol/L 04/11/2024 4:42 AM EDT LAB[facility]ATORY [facility] Glucose 123(H) 70 - 120 mg/dL 04/11/2024 4:42 AM EDT LAB[facility]ATORY [facility] Calcium 9.1 8.4 - 10.2 mg/dL 04/11/2024 4:42 AM EDT LAB[facility]ATORY [facility] Blood Venous blood specimen / Unknown Venipuncture / Unknown 04/11/2024 3:45 AM EDT 04/11/2024 4:11 AM EDT Cally Hare MD LAB BLOOD ORDERABL ES Performing Organization Address [facility]/ZIP Co de Phone Number LABORATORY [facility] [address] [place] [address] * (ABNORMAL) GLUCOSE METER, POINT OF CARE (04/10/2024 9:50 PM EDT) Glucose Meter 147(H) 70 - 120 mg/dL 04/11/2024 12:18 AM EDT [facility] Blood Whole blood specimen / Unknown 04/10/2024 9:50 PM EDT 04/11/2024 12:18 AM EDT Cally Hare MD LAB POINT OF CARE TEST DOCKED DEVICE UNSOLICITED RESULTS Performing Organization Address [facility] Co de Phone Number [facility] [address] [place] [address] * MICROSCOPIC EXAM, URINE (04/10/2024 7:06 PM EDT) RBC, Urine 0-2 0 - 2 /HPF 04/10/2024 7:40 PM EDT LABORATORY GL WBC, Urine 0-2 0 - 2 /HPF 04/10/2024 7:40 PM EDT LAB[facility]ATORY [facility] Bacteria, Urine 0-25 0 - 25 /HPF 04/10/2024 7:40 PM EDT [facility] Urine Urine specimen obtained by clean catch procedure / Unknown Non-blood Collection / Unknown 04/10/2024 7:06 PM EDT 04/10/2024 7:12 PM EDT Jann Conway MD LAB URINE ORD ERABLES Performing Organization Address [facility] Co de Phone Number LABORATORY [address] [address] * (ABNORMAL) URINALYSIS, REFLEX TO MICROSCOPIC (04/10/2024 7:06 PM EDT) Color, Urine Yellow Light Yellow, Yellow, Dark Yellow 04/10/2024 7:36 PM EDT LABORATORY GL Clarity, Urine Clear Clear 04/10/2024 7:36 PM EDT LABORATORY GL Glucose, Urine 250(A) Negative mg/dL 04/10/2024 7:36 PM EDT LABORATORY GL Bilirubin, Urine Negative Negative 04/10/2024 7:36 PM EDT LABORATORY GL Ketone, Urine Negative Negative mg/dL 04/10/2024 7:36 PM EDT LABORATORY GL Specific [place], Urine 1.017 1.003 - 1.030 04/10/2024 7:36 PM EDT LAB[facility]ATORY [facility] Blood, Urine Negative Negative 04/10/2024 7:36 PM EDT LAB[facility]ATORY [facility] pH, Urine 7.0 5.0 - 7.5 Units 04/10/2024 7:36 PM EDT LAB[facility] Protein, Urine 30(A) Negative mg/dL 04/10/2024 7:36 PM EDT LAB[facility] Urobilinogen, Urine 0.2 0.2, 1.0 mg/dL 04/10/2024 7:36 PM EDT LAB[facility] Nitrite, Urine Negative Negative 04/10/2024 7:36 PM EDT LAB[facility]ORY [facility] Esterase, Urine Negative Negative 04/10/2024 7:36 PM EDT LAB[facility]ORY [facility] Urine Urine specimen obtained by clean catch procedure / Unknown Non-blood Collection / Unknown 04/10/2024 7:06 PM EDT 04/10/2024 7:12 PM EDT Jann Conway MD LAB URINE ORD ERABLES Performing Organization Address City/State/[facility] Co de Phone Number LABORATORY [facility] [address] [place] [id number] * CT ABD/PELVIS WO IV/ORAL CONTRAST (04/10/2024 5:53 PM EDT) Anatomical Region Laterality Modality Body, Abdomen, Pelvis Computed T omography 04/10/2024 5:40 PM EDT Impressions 04/10/2024 6:09 PM EDT IMPRESSION: 1. Grossly unremarkable appearance of the kidneys for noncontrast scan. No hydronephrosis 2. Constipation 3. Nonobstructive bowel gas pattern THIS DOCUMENT HAS BEEN ELECTRONICALLY SIGNED BY PIPPA FARRELL MD Narrative 04/10/2024 6:09 PM EDT PROCEDURE INFORMATION: Exam: CT Abdomen And Pelvis Without Contrast Exam date and time: 04/10/2024 5:40 PM Age: 48 years old Clinical indication: Abdominal pain; Additional info: Ongoing bilateral mid back pain and bilateral mid abdominal pain, getting worse. History of hal. Recent constipation. Nausea TECHNIQUE: Imaging protocol: Computed tomography of the abdomen and pelvis without contrast. Radiation optimization: All CT scans at this facility use at least one of these dose optimization techniques: automated exposure control; mA and/or kV adjustment per patient size (includes targeted exams where dose is matched to clinical indication); or iterative reconstruction. COMPARISON: CT ABD/PELVIS W IV CONTRAST - WO ORAL CONTRAST 12/22/2023 1:02 PM FINDINGS: Lungs: There is subpleural atelectasis of the dependent portions of the lungs. Liver: Normal. No mass. Gallbladder and biliary ducts: Normal. No calcified stones. No ductal dilation. Pancreas: Normal. No ductal dilation. Spleen: Normal. No splenomegaly. Adrenal glands: Normal. No mass. Kidneys and ureters: There is no evidence of hydronephrosis. Stomach and bowel: There is excessive colonic stool content. Fluid-filled nonspecific loops of small bowel. Appendix: Appendix not visualized. Intraperitoneal space: Unremarkable. No free air. No significant fluid collection. Vasculature: Unremarkable. No abdominal aortic aneurysm. Lymph nodes: Unremarkable. No enlarged lymph nodes. Urinary bladder: Unremarkable as visualized. Reproductive: Unremarkable as visualized. Bones/joints: The spine demonstrates severe degenerative changes at multiple levels. Soft tissues: Unremarkable. Procedure Note Pippa Farrell MD - 04/10/2024 PROCEDURE INFORMATION: Exam: CT Abdomen And Pelvis Without Contrast Exam date and time: 04/10/2024 5:40 PM Age: 48 years old Clinical indication: Abdominal pain; Additional info: Ongoing bilateralmid back pain and bilateral mid abdominal pain, getting worse. History of hal. Recent constipation. Nausea TECHNIQUE: Imaging protocol: Computed tomography of the abdomen and pelvis without contrast. Radiation optimization: All CT scans at this facility use at least one ofthese dose optimization techniques: automated exposure control; mA and/or kV adjustment per patient size (includes targeted exams where dose is matchedto clinical indication); or iterative reconstruction. COMPARISON: CT ABD/PELVIS W IV CONTRAST - WO ORAL CONTRAST 12/22/2023 1:02 PM FINDINGS: Lungs: There is subpleural atelectasis of the dependent portions of thelungs. Liver: Normal. No mass. Gallbladder and biliary ducts: Normal. No calcified stones. No ductaldilation. Pancreas: Normal. No ductal dilation. Spleen: Normal. No splenomegaly. Adrenal glands: Normal. No mass. Kidneys and ureters: There is no evidence of hydronephrosis. Stomach and bowel: There is excessive colonic stool content. Fluid-filled nonspecific loops of small bowel. Appendix: Appendix not visualized. Intraperitoneal space: Unremarkable. No free air. No significant fluid collection. Vasculature: Unremarkable. No abdominal aortic aneurysm. Lymph nodes: Unremarkable. No enlarged lymph nodes. Urinary bladder: Unremarkable as visualized. Reproductive: Unremarkable as visualized. Bones/joints: The spine demonstrates severe degenerative changes atmultiple levels. Soft tissues: Unremarkable. IMPRESSION IMPRESSION: 1. Grossly unremarkable appearance of the kidneys for noncontrast scan.No hydronephrosis 2. Constipation 3. Nonobstructive bowel gas pattern THIS DOCUMENT HAS BEEN ELECTRONICALLY SIGNED BY PIPPA FARRELL MD Theresa Silva MD RAD CT * XR CHEST 1 VIEW (04/10/2024 5:17 PM EDT) Anatomical Region Laterality Modality Chest Digital Radiogra phy 04/10/2024 5:08 PM EDT Impressions 04/10/2024 5:46 PM EDT IMPRESSION: Low lung volumes with atelectatic changes.No focal consolidation. Viral process not excluded. THIS DOCUMENT HAS BEEN ELECTRONICALLY SIGNED BY PIPPA FARRELL MD Narrative 04/10/2024 5:46 PM EDT PROCEDURE INFORMATION: Exam: XR Chest Exam date and time: 04/10/2024 5:08 PM Age: 48 years old Clinical indication: Other: Abdominal pain TECHNIQUE: Imaging protocol: Radiologic exam of the chest. Views: 1 view. COMPARISON: DX XR CHEST 1 VIEW 03/03/2024 5:32 PM FINDINGS: Lungs: There is poor ventilation of the lungs, accounting for mild diffuse increase in pulmonary parenchymal density. Pleural spaces: Unremarkable. No pleural effusion. No pneumothorax. Heart/Mediastinum: There is mild cardiomegaly. Bones/joints: There are mild degenerative changes present. Procedure Note Pippa Farrell MD - 04/10/2024 PROCEDURE INFORMATION: Exam: XR Chest Exam date and time: 04/10/2024 5:08 PM Age: 48 years old Clinical indication: Other: Abdominal pain TECHNIQUE: Imaging protocol: Radiologic exam of the chest. Views: 1 view. COMPARISON: DX XR CHEST 1 VIEW 03/03/2024 5:32 PM FINDINGS: Lungs: There is poor ventilation of the lungs, accounting for mild diffuse increase in pulmonary parenchymal density. Pleural spaces: Unremarkable. No pleural effusion. No pneumothorax. Heart/Mediastinum: There is mild cardiomegaly. Bones/joints: There are mild degenerative changes present. IMPRESSION IMPRESSION: Low lung volumes with atelectatic changes.No focal consolidation. Viralprocess not excluded. THIS DOCUMENT HAS BEEN ELECTRONICALLY SIGNED BY PIPPA FARRELL MD Theresa Silva MD RADIOLOGY (RAD GE NERAL) * ECG Interpret (04/10/2024 5:11 PM EDT) Narrative Theresa Silva MD - 04/10/2024 5:11 PM EDT Theresa Silva MD 04/10/2024 10:11 PM ECG Interpret Date/Time: 04/10/2024 5:11 PM Performed by: Theresa Silva MD Authorized by: Theresa Silva MD Previous ECG: Previous ECG: Compared to current Comments: Done at 16:58 shows normal sinus rhythm, rate 91. Compared to prior EKG of 03/03/2024 done at 17:41, heart rate has decreased from 111 Theresa Silva MD PROCEDURE REPORT * MAGNESIUM (04/10/2024 3:08 PM EDT) Magnesium 1.6 1.5 - 2.6 mg/dL 04/10/2024 5:27 PM EDT LABORATORY [facility] Blood Venous blood specimen / Unknown Venipuncture / Unknown 04/10/2024 3:08 PM EDT 04/10/2024 3:11 PM EDT Theresa Silva MD LAB BLOOD ORDERAB LES LABORATORY [facility] [address] [place] [address] * DIFFERENTIAL, AUTOMATED (04/10/2024 3:08 PM EDT) WBC 7.63 4.00 - 10.80 K/uL 04/10/2024 3:21 PM EDT LABORATORY [facility] Neutrophils % 61.2 40.0 - 75.0 % 04/10/2024 3:21 PM EDT LABORATORY [facility] Lymphocytes % 23.5 18.0 - 42.0 % 04/10/2024 3:21 PM EDT LABORATORY GL Monocytes % 8.0 1.0 - 11.0 % 04/10/2024 3:21 PM EDT LABORATORY GL Eosinophils % 5.4 0.0 - 6.0 % 04/10/2024 3:21 PM EDT LABORATORY GL Basophils % 1.2 0.0 - 2.0 % 04/10/2024 3:21 PM EDT LABORATORY GL Immature Granulocytes % 0.7 0.0 - 2.0 % 04/10/2024 3:21 PM EDT LABORATORY [facility] Absolute Neutrophils 4.68 1.80 - 7.70 K/uL 04/10/2024 3:21 PM EDT LABORATORY [facility] Absolute Lymphocytes 1.79 1.00 - 4.80 K/ul 04/10/2024 3:21 PM EDT LABORATORY [facility] Absolute Monocytes 0.61 0.00 - 1.10 K/uL 04/10/2024 3:21 PM EDT LABORATORY [facility] Absolute Eosinophils 0.41 0.00 - 0.70 K/uL 04/10/2024 3:21 PM EDT LABORATORY [facility] Absolute Basophils 0.09 0.00 - 0.20 K/uL 04/10/2024 3:21 PM EDT LABORATORY GL Absolute Immature Granulocytes 0.05 0.00 - 0.20 K/uL 04/10/2024 3:21 PM EDT LABORATORY [facility] Blood Venous blood specimen / Unknown Venipuncture / Unknown 04/10/2024 3:08 PM EDT 04/10/2024 3:11 PM EDT Jann Conway MD LAB BLOOD ORD ERABLES LABORATORY [address] [address] * (ABNORMAL) CBC (04/10/2024 3:08 PM EDT) [facility] WBC 7.63 4.00 - 10.80 K/uL 04/10/2024 3:21 PM EDT LABORATORY GL RBC 4.26 4.50 - 5.25 M/uL 04/10/2024 3:21 PM EDT LABORATORY [facility] HGB 11.0(L) 14.0 - 16.8 g/dL 04/10/2024 3:21 PM EDT LABORATORY [facility] HCT 34.9(L) 40.0 - 48.4 % 04/10/2024 3:21 PM EDT LABORATORY [facility] MCV 81.9 82.0 - 99.5 fL 04/10/2024 3:21 PM EDT LAB[facility]ATORY [facility] MCH 25.8 27.0 - 34.0 pg 04/10/2024 3:21 PM EDT LABORATORY [facility] MCHC 31.5 32.0 - 36.0 g/dL 04/10/2024 3:21 PM EDT LAB[facility]ATORY [facility] RDW 16.6 11.5 - 15.5 % 04/10/2024 3:21 PM EDT LABORATORY [facility] PLT 236 140 - 400 K/uL 04/10/2024 3:21 PM EDT LABORATORY GL MPV 9.2 6.6 - 11.1 fL 04/10/2024 3:21 PM EDT LABORATORY [facility] nRBCs 0 <=0 /100 WBCs 04/10/2024 3:21 PM EDT LABORATORY GL Blood Venous blood specimen / Unknown Venipuncture / Unknown 04/10/2024 3:08 PM EDT 04/10/2024 3:11 PM EDT Jann Conway MD LAB BLOOD ORD ERABLES Performing Organization Address City/[facility]/ZIP Co de Phone Number LABORATORY [address] [id number] * EXTRA LIGHT BLUE TOP (04/10/2024 3:08 PM EDT) Blood Venous blood specimen / Unknown Venipuncture / Unknown 04/10/2024 3:08 PM EDT 04/10/2024 3:10 PM EDT Jann Conway MD LAB BLOOD ORD ERABLES Performing Organization Address City/[facility]/ZIP Co de Phone Number LABORATORY [address] [id number] * (ABNORMAL) LIPASE (04/10/2024 3:08 PM EDT) Lipase 242(H) 13 - 60 U/L 04/10/2024 3:33 PM EDT LABORATORY GL Blood Venous blood specimen / Unknown Venipuncture / Unknown 04/10/2024 3:08 PM EDT 04/10/2024 3:11 PM EDT Jann Conway MD LAB BLOOD ORD ERABLES LAB[facility]ATORY [facility] [address] [place] [address] * (ABNORMAL) COMPREHENSIVE METABOLIC PANEL (04/10/2024 3:08 PM EDT) BUN 24(H) 6 - 20 mg/dL 04/10/2024 3:33 PM EDT LABORATORY [facility] Creatinine 1.3(H) 0.6 - 1.2 mg/dL 04/10/2024 3:33 PM EDT LABORATORY [facility] Estimated Glomerular Filtration Rate 69 >=60 mL/min 04/10/2024 3:33 PM EDT LABORATORY [facility] Comment:eGFR is calculated b ased on the CKD-EPI 2020 equation Sodium 137 135 - 146 mmol/L 04/10/2024 3:33 PM EDT LABORATORY [facility] Potassium 4.9 3.5 - 5.1 mmol/L 04/10/2024 3:33 PM EDT LAB[facility]ATORY [facility] Chloride 99 98 - 107 mmol/L 04/10/2024 3:33 PM EDT LABORATORY [facility] CO2 27 22 - 32 mmol/L 04/10/2024 3:33 PM EDT LAB[facility]ATORY [facility] Anion Gap 11 7 - 15 mmol/L 04/10/2024 3:33 PM EDT LAB[facility]ATORY [facility] Glucose 279(H) 70 - 120 mg/dL 04/10/2024 3:33 PM EDT LABORATORY [facility] Albumin 4.0 3.8 - 5.0 g/dL 04/10/2024 3:33 PM EDT LABORATORY [facility] AST 18 10 - 50 U/L 04/10/2024 3:33 PM EDT LABORATORY [facility] Alkaline Phosphatase 100 35 - 130 U/L 04/10/2024 3:33 PM EDT LAB[facility]ATORY [facility] Bilirubin, Total 0.3 <=1.2 mg/dL 04/10/2024 3:33 PM EDT LABORATORY [facility] Calcium 9.4 8.4 - 10.2 mg/dL 04/10/2024 3:33 PM EDT LABORATORY [facility] Protein 7.4 6.0 - 8.3 g/dL 04/10/2024 3:33 PM EDT LABORATORY [facility] ALT 30 10 - 50 U/L 04/10/2024 3:33 PM EDT LAB[facility]ATORY [facility] Blood Venous blood specimen / Unknown Venipuncture / Unknown 04/10/2024 3:08 PM EDT 04/10/2024 3:11 PM EDT Jann Conway MD LAB BLOOD ORD ERABLES LAB[facility]ATORY [facility] [address] [place] [address] documented in this encounter Visit Diagnoses Diagnosis Abdominal pain- Primary Abdominal pain, unspecified site Acute pancreatitis, unspecified complication status, unspecified pancreatitis type Acute bilateral low back pain without sciatica Constipation, unspecified constipation type History of left below knee amputation (HCC) Lower limb amputation, below knee Chest pain Chest pain, unspecified Atelectasis Pulmonary collapse Other specified symptoms and signs involving the circulatory and respiratory systems Pain in thoracic spine Nausea Nausea alone 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) Type 2 diabetes mellitus with hemoglobin A1c goal of less than 7.0% ([facility]) Tobacco use disorder Restrictive lung disease secondary to obesity Other diseases of lung, not elsewhere classified Obstructive sleep apnea Obstructive sleep apnea (adult) (pediatric) Nausea and vomiting Nausea with vomiting Hyperlipidemia with target LDL less than 70 Other and unspecified hyperlipidemia Gastroesophageal reflux disease without esophagitis Esophageal reflux DM type 2 causing vascular disease (HCC) Type II or unspecified type diabetes mellitus with peripheral circulatory disorders, not stated as uncontrolled Abdominal pain, generalized History of pancreatitis Personal history of other diseases of digestive system documented in this encounter Administered Medications Inactive Administered Medications - up to 3 most recent administrations Medication Order MAR Action Action Date Dose Rate Site Acetaminophen (Tylenol) tab 975 mg 975 mg, Oral, Q6H PRN Pain, Mild, Starting on Wed04/11/24 at 1559, Until Wed04/13/24 at 1756, Maximum of 4 grams (4000 mg) per day. Given 04/13/2024 6:19 AM EDT 975 mg Given 04/12/2024 8:33 AM EDT 975 mg aspirin enteric coated tab 81 mg 81 mg, Oral, Daily(AM), First dose on Wed04/11/24 at 0900, Until Discontinued Given 04/13/2024 8:06 AM EDT 81 mg Given 04/12/2024 8:25 AM EDT 81 mg Given 04/11/2024 8:30 AM EDT 81 mg atorvaSTATin (Lipitor) tab 20 mg 20 mg, Oral, Daily(AM), First dose on Wed04/11/24 at 1045, Until Discontinued Given 04/13/2024 8:08 AM EDT 20 mg Given 04/12/2024 8:25 AM EDT 20 mg Given 04/11/2024 11:57 AM EDT 20 mg cyclobenzaprine (Flexeril) tab 10 mg 10 mg, Oral, TID(AM/NOON/HS), First dose on Wed04/11/24 at 2200, Last dose on Wed04/14/24 at 1200, For 3 days Given 04/13/2024 12:01 PM EDT 10 mg Given 04/13/2024 6:02 AM EDT 10 mg Given 04/12/2024 9:24 PM EDT 10 mg dextrose 50% inj 25 mL 25 mL, IV Push, PRN Hypoglycemia, Other, For blood glucose 54 - 69 mg/dL or 70 - 100 mg/dL with symptoms AND patient is unresponsive, NPO, OR unable to swallow, Starting on Wed04/10/24 at 2201, Until Wed04/13/24 at 1756, Administer IV. Recheck blood glucose after 15 minutes. Notify provider. dextrose 50% inj 50 mL 50 mL, IV Push, PRN Hypoglycemia, Other, For blood glucose below 54 mg/dL AND patient unresponsive, NPO, OR unable to swallow, Starting on Wed04/10/24 at 2201, Until Wed04/13/24 at 1756, Administer IV. Recheck blood glucose in 15 minutes. Notify provider. Docusate Sodium (Colace) cap 100 mg 100 mg, Oral, BID (.AM/PM), First dose on Wed04/11/24 at 1630, Until Discontinued, For oral administration ONLY, if route of administration is other than oral and alternative product must be ordered. Given 04/13/2024 8:06 AM EDT 100 mg Given 04/12/2024 9:24 PM EDT 100 mg Given 04/12/2024 8:25 AM EDT 100 mg Famotidine (Pepcid) inj 20 mg 20 mg, IV Push, Q12H, First dose on Wed04/11/24 at 1045, Until Discontinued, Give IV push over 2 minutes. Given 04/11/2024 11:58 AM EDT 20 mg Famotidine (Pepcid) tab 20 mg 20 mg, Oral, Q12H, First dose on Wed04/11/24 at 2100, Until Discontinued Given 04/13/2024 8:06 AM EDT 20 mg Given 04/12/2024 9:24 PM EDT 20 mg Given 04/12/2024 8:25 AM EDT 20 mg Gabapentin (Neurontin) cap 200 mg 200 mg, Oral, BID (.AM/PM), First dose on Wed04/11/24 at 1045, Until Discontinued Given 04/13/2024 8:06 AM EDT 200 mg Given 04/12/2024 9:24 PM EDT 200 mg Given 04/12/2024 8:25 AM EDT 200 mg glucagon (Glucagen) inj 1 mg 1 mg, Intramuscular, PRN Hypoglycemia, Other, If patient is unresponsive, or NPO and has no IV access, Starting on Wed04/10/24 at 2201, Until Wed04/13/24 at 1756, NPO and no IV access with either 1) blood glucose less than 100 mg/dL and symptomatic OR 2) blood glucose less than 70 mg/dL and asymptomatic Glucose (Glutose 15) 40 % gel 15 g of glucose 15 g of glucose, Oral, PRN Hypoglycemia (low sugar), Other, For blood glucose 54 - 69 mg/dL or 70 - 100 mg/dL with symptoms AND patient alert WITH difficulty chewing/swallowing, Starting on Wed04/10/24 at 2201, Until Wed04/13/24 at 1756, Administer gel. Recheck blood glucose after 15 minutes. Notify provider. 37.5 gram tube = 15 grams glucose = 1 each Glucose (Glutose 15) 40 % gel 30 g of glucose 30 g of glucose, Oral, PRN Hypoglycemia (low sugar), Other, For blood glucose below 54 mg/dL AND patient alert WITH difficulty chewing/swallowing, Starting on Wed04/10/24 at 2201, Until Wed04/13/24 at 1756, Administer gel. Recheck blood glucose after 15 minutes. Notify provider. 37.5 gram tube = 15 grams glucose = 1 each glucose chew tab 16 g 16 g, Oral, PRN Hypoglycemia, Other, For blood glucose 54 - 69 mg/dL or 70 - 100 mg/dL with symptoms and patient alert without difficulty chewing/swallowing., Starting on Wed04/10/24 at 2201, Until Wed04/13/24 at 1756 hEParin inj 5,000 Units 5,000 Units, Subcutaneous, Q12H, First dose on Wed04/10/24 at 2115, Until Discontinued Given 04/13/2024 8:08 AM EDT 5,000 Units Abdomen Left Lower Given 04/12/2024 9:30 PM EDT 5,000 Units A bdomen Left Upper Given 04/12/2024 8:25 AM EDT 5,000 Units A bdomen Left Lower house antacid (Mi-Acid II) oral susp 15 mL 15 mL, Oral, Q6H, First dose on Wed04/12/24 at 1800, Until Discontinued, SHAKE WELL Given 04/13/2024 12:01 PM EDT 15 mL Given 04/13/2024 6:02 AM EDT 15 mL Given 04/12/2024 11:32 PM EDT 15 mL hydroCHLOROthiazide (Hydrodiuril) tab 25 mg 25 mg, Oral, Daily(AM), First dose on Wed04/13/24 at 1245, Until Discontinued Given 04/13/2024 12:29 PM EDT 25 mg insulin aspart (NovoLOG) inj Subcutaneous, Q6H, First dose on Wed04/11/24 at 0000, Until Discontinued, MEDIUM DOSE (Usual starting dose): Sliding Scale Correctional insulin may be given if the patient is NPO. Dose based on standard build from Insulin Calculator. Do not modify insulin doses in administration instructions!, Glucose less than 70 instructions: Obtain STAT lab blood glucose and call covering provider., Glucose 80-150 (units): 0, Glucose 151-200 (units): 2, Glucose 201-250 (units): 4, Glucose 251-300 (units): 6, Glucose greater than 300 (units): 8, Glucose greater than 300 instructions: Give suggested insulin dose and call covering provider. Given 04/11/2024 12:03 PM EDT 4 Units Arm Right Upper Given 04/11/2024 5:59 AM EDT 2 Units Ar m Left Upper insulin aspart (NovoLOG) inj Subcutaneous, W/MEALS AND HS, First dose (after last modification) on Wed04/11/24 at 1700, Until Discontinued, MEDIUM DOSE (Usual starting dose): Sliding Scale Correctional insulin may be given if the patient is NPO. Dose based on standard build from Insulin Calculator. Do not modify insulin doses in administration instructions!, Glucose less than 70 instructions: Obtain STAT lab blood glucose and call covering provider., Glucose 80-150 (units): 0, Glucose 151-200 (units): 2, Glucose 201-250 (units): 4, Glucose 251-300 (units): 6, Glucose greater than 300 (units): 8, Glucose greater than 300 instructions: Give suggested insulin dose and call covering provider. Given 04/12/2024 12:04 PM EDT 4 Units Arm Left Upper Given 04/12/2024 8:27 AM EDT 4 Units Ar m Left Upper Given 04/11/2024 9:39 PM EDT 2 Units Ar m Right Upper insulin aspart (NovoLOG) inj Subcutaneous, W/MEALS AND HS, First dose on Wed04/12/24 at 1700, Until Discontinued, HIGH DOSE, Insulin sensitivity factor (ISF) = 30 (Moderately Insulin Resistance) Serum Blood Sugarless than 70 mg/dl or symptomatic (obtain STAT lab blood sugar and notify provider); 151 - 180 mg/dl (1 units); 181 - 210 mg/dl (2 units); 211 - 240 mg/dl (3 units); 241 - 270 mg/dl (4 units); 271 - 300 mg/dl (5 units); 301 - 330 mg/dl (6 units); 331 - 360 mg/dl (7 units); 361 - 390 mg/dl (8 units); greater than 390 mg/dl (call provider) Correctional insulin may be given if the patient is NPO. Given 04/13/2024 12:01 PM EDT 6 Units Arm Right Upper Given 04/13/2024 8:07 AM EDT 4 Units Ar m Left Upper Given 04/12/2024 9:28 PM EDT 2 Units Ar m Left Upper Insulin Glargine (Lantus) inj 10 Units 10 Units, Subcutaneous, AMHS, First dose on Wed04/12/24 at 2200, Until Discontinued, "IF DOSE IS HELD- NOTIFY COVERING PROVIDER!" Given 04/12/2024 9:29 PM EDT 10 Units Arm Left Upper Insulin Glargine (Lantus) inj 15 Units 15 Units, Subcutaneous, AMHS, First dose (after last modification) on Wed04/13/24 at 0815, Until Discontinued, "IF DOSE IS HELD- NOTIFY COVERING PROVIDER!" Given 04/13/2024 8:07 AM EDT 15 Units Arm Left Upper Insulin Glargine (Lantus) inj 30 Units 30 Units, Subcutaneous, AMHS, First dose (after last modification) on Wed04/13/24 at 2200, Until Discontinued, "IF DOSE IS HELD- NOTIFY COVERING PROVIDER!" Lidocaine (Aspercreme) 4 % patch 1 Patch 1 Patch, Transdermal, Daily(AM), First dose on Wed04/11/24 at 1800, Until Discontinued, Apply patch for 12 hours then remove for 12 hours! Remove any Lidocaine patches the patient may currently be wearing prior to applying the new patch Patch Applied 04/13/2024 8:05 AM EDT 1 Patch Back Middle Patch Applied 04/12/2024 8:26 AM EDT 1 Patch Back Middle Patch Applied 04/11/2024 5:57 PM EDT 1 Patch Back Left losartan (Cozaar) tab 100 mg 100 mg, Oral, Daily(AM), First dose on Wed04/11/24 at 1045, Until Discontinued Given 04/13/2024 8:06 AM EDT 100 mg Given 04/12/2024 8:25 AM EDT 100 mg Given 04/11/2024 11:57 AM EDT 100 mg metoclopramide (Reglan) inj 10 mg 10 mg, IV Push, Q8H, First dose on Wed04/11/24 at 1400, Until Discontinued Given 04/13/2024 6:02 AM EDT 10 mg Given 04/12/2024 9:32 PM EDT 10 mg Given 04/12/2024 1:48 PM EDT 10 mg metoprolol succinate XL (toPROL XL) tab 100 mg 100 mg, Oral, BID (.AM/PM), First dose on Wed04/11/24 at 1045, Until Discontinued, Hold for HR less than 60 or SBP below 100 and notify service if dose is held This med should NOT be Crushed or Chewed. Given 04/13/2024 8:06 AM EDT 100 mg Given 04/12/2024 9:24 PM EDT 100 mg Given 04/12/2024 8:25 AM EDT 100 mg milk of magnesia (Mom) oral susp 30 mL 30 mL, Oral, ONCE, On Wed04/11/24 at 1645, For 1 dose Given 04/11/2024 4:28 PM EDT 30 mL Morphine Sulfate (PF) inj 4 mg 4 mg, IV Push, ONCE, On Wed04/10/24 at 1745, For 1 dose Given 04/10/2024 5:22 PM EDT 4 mg Morphine Sulfate (PF) inj 4 mg 4 mg, IV Push, ONCE, On Wed04/10/24 at 2100, For 1 dose Given 04/10/2024 8:41 PM EDT 4 mg morphine sulfate inj 2 mg 2 mg, IV Push, Q4H PRN Pain, Moderate, Pain, Severe, Starting on Wed04/10/24 at 2324, Until Wed04/11/24 at 1433 Given 04/11/2024 8:29 AM EDT 2 mg Given 04/11/2024 4:22 AM EDT 2 mg Naloxegol Oxalate (Movantik) tab 25 mg 25 mg, Oral, Daily(AM), First dose on Wed04/12/24 at 0900, Until Discontinued, May crush and mix with 2 to 4 oz of water for administration. Refill cup or oral syringe with water and administer any remaining medication. Given 04/13/2024 8:05 AM EDT 25 mg Given 04/12/2024 8:38 AM EDT 25 mg NSS 0.9% 1,500 mL bolus infusion IV Piggyback, at 1,500 mL/hr Administer over 60 Minutes, ONCE, 1 dose, On Wed04/10/24 at 1745 New Bag 04/10/2024 5:18 PM EDT 1,500 mL 1500 mL/hr NSS infusion Intravenous, at 150 mL/hr, CONTINUOUS, Starting on Wed04/10/24 at 2100, Until Wed04/11/24 at 1004 New Bag 04/10/2024 8:35 PM EDT 150 mL/hr NSS infusion Intravenous, at 125 mL/hr, CONTINUOUS, Starting on Wed04/10/24 at 2115, Until Wed04/11/24 at 1004 Rate Verify 04/11/2024 6:26 AM EDT 125 mL/hr New Bag 04/11/2024 3:28 AM EDT 125 mL/hr New Bag 04/10/2024 10:47 PM EDT 125 mL/hr NSS infusion Intravenous, at 75 mL/hr, CONTINUOUS, Starting on Wed04/12/24 at 0945, Until Wed04/13/24 at 1756 Rate Verify 04/13/2024 3:18 AM EDT 75 mL /hr New Bag 04/12/2024 11:29 PM EDT 75 mL/hr New Bag 04/12/2024 10:36 AM EDT 75 mL/hr ondansetron (Zofran) inj 4 mg 4 mg, IV Push, ONCE, On Wed04/10/24 at 1745, For 1 dose Given 04/10/2024 5:19 PM EDT 4 mg ondansetron (Zofran) inj 4 mg 4 mg, IV Push, Q6H PRN Nausea, Starting on Wed04/10/24 at 2030, Until Wed04/13/24 at 1756 Given 04/10/2024 8:40 PM EDT 4 mg Pantoprazole (Protonix) inj 40 mg 40 mg, IV Push, Daily(AM), First dose on Wed04/11/24 at 0900, Until Discontinued, IV push instructions: Flush I.V. Line before and after administration. In-line filter not required. 2-minute infusion: The volume of reconstituted solution (4mg/ml) to be injected may be administered intravenously over at least 2 minutes. ( Dilute each vial with 10 ml of 0.9% saline PF) Given 04/11/2024 8:29 AM EDT 40 mg pantoprazole (Protonix) tab 40 mg 40 mg, Oral, BEFORE BREAKFAST, First dose on Wed04/12/24 at 0745, Until Discontinued, This med should NOT be Crushed or Chewed Given 04/13/2024 6:02 AM EDT 40 mg Given 04/12/2024 6:47 AM EDT 40 mg Polyethylene Glycol 3350 (Miralax) oral powder 17 g 17 g (1 Packet), Oral, BID (0900,2100), First dose on Wed04/11/24 at 1630, Until Discontinued, Mix in 8 oz of water, juice, soda, coffee, or tea. Given 04/13/2024 8:06 AM EDT 17 g Given 04/12/2024 9:22 PM EDT 17 g Given 04/12/2024 8:26 AM EDT 17 g senna (Senokot) 2 Tablet 2 Tablet, Oral, Daily(AM), First dose on Wed04/11/24 at 1630, Until Discontinued Given 04/13/2024 8:07 AM EDT 2 Ta blets Given 04/12/2024 8:25 AM EDT 2 Tablets Given 04/11/2024 4:28 PM EDT 2 Tablets traMADol (Ultram) tab 50 mg 50 mg, Oral, Q6H PRN Pain, Severe, Starting on Wed04/11/24 at 1210, Until Wed04/13/24 at 1756 Given 04/13/2024 4:30 AM EDT 50 mg Given 04/12/2024 5:39 PM EDT 50 mg Given 04/12/2024 5:56 AM EDT 50 mg documented in this encounter Active and Recently Administered Medications Times are shown in EDT. Scheduled Medication Order 04/11/2024 04/12/2024 04/13/2024 aspirin enteric coated tab 81 mg 81 mg, Oral, Daily(AM), First dose on Wed04/11/24 at 0900, Until Discontinued 0830 (Given - Provider: Elaina Maurer RN) 0825 (Given - Provider: Linette Villa LPN) 0806 (Given - Provider: Linette Villa LPN) atorvaSTATin (Lipitor) tab 20 mg 20 mg, Oral, Daily(AM), First dose on Wed04/11/24 at 1045, Until Discontinued 1157 (Given - Provider: Elaina Maurer RN) 0825 (Given - Provider: Linette Villa LPN) 0808 (Given - Provider: Linette Villa LPN) cyclobenzaprine (Flexeril) tab 10 mg 10 mg, Oral, TID(AM/NOON/HS), First dose on Wed04/11/24 at 2200, Last dose on Wed04/14/24 at 1200, For 3 days 2138 (Given - Provider: Cindi Newton RN) 0553 (Given - Provider: Cindi Newton RN)120 (Given - Provider: Linette Villa LPN)2123 (Given - Provider: Cindi Newton RN) 06 (Given - Provider: Cindi Newton RN)120 (Given - Provider: Linette Villa LPN) Docusate Sodium (Colace) cap 100 mg 100 mg, Oral, BID (.AM/PM), First dose on Wed04/11/24 at 1630, Until Discontinued, For oral administration ONLY, if route of administration is other than oral and alternative product must be ordered. 1628 (Given - Provider: Elaina Maurer RN) 0825 (Given - Provider: Linette Villa LPN)2123 (Given - Provider: Cindi Newton RN) 0806 (Given - Provider: Linette Villa LPN) Famotidine (Pepcid) inj 20 mg (CANCELED) 20 mg, IV Push, Q12H, First dose on Wed04/11/24 at 1045, Until Discontinued, Give IV push over 2 minutes. 1158 (Given - Provider: Elaina Maurer RN) Famotidine (Pepcid) tab 20 mg 20 mg, Oral, Q12H, First dose on Wed04/11/24 at 2100, Until Discontinued 2138 (Given - Provider: Cindi Newton RN) 0825 (Given - Provider: Linette Villa LPN)2123 (Given - Provider: Cindi Newton RN) 0806 (Given - Provider: Linette Villa LPN) Gabapentin (Neurontin) cap 200 mg 200 mg, Oral, BID (.AM/PM), First dose on Wed04/11/24 at 1045, Until Discontinued 1157 (Given - Provider: Elaina Maurer RN)2138 (Given - Provider: Cindi Newton RN) 824 (Given - Provider: Linette Villa LPN)2123 (Given - Provider: Cindi Newton RN) 08 (Given - Provider: Linette Villa LPN) hEParin inj 5,000 Units 5,000 Units, Subcutaneous, Q12H, First dose on Wed04/10/24 at 2115, Until Discontinued 08 (Given - Provider: Elaina Maurer RN)2138 (Given - Provider: Cindi Newton RN) 824 (Given - Provider: Linette Villa LPN)2129 (Given - Provider: Cindi Newton RN) 08 (Given - Provider: Linette Villa LPN) house antacid (Mi-Acid II) oral susp 15 mL 15 mL, Oral, Q6H, First dose on Wed04/12/24 at 1800, Until Discontinued, SHAKE WELL 1737 (Given - Provider: Linette Villa LPN)2332 (Given - Provider: Cindi Newton RN) 0602 (Given - Provider: Cindi Newton RN)1201 (Given - Provider: Linette Villa LPN) hydroCHLOROthiazide (Hydrodiuril) tab 25 mg 25 mg, Oral, Daily(AM), First dose on Wed04/13/24 at 1245, Until Discontinued 1229 (Given - Provider: Linette Villa LPN) insulin aspart (NovoLOG) inj (CANCELED) Subcutaneous, Q6H, First dose on Wed04/11/24 at 0000, Until Discontinued, MEDIUM DOSE (Usual starting dose): Sliding Scale Correctional insulin may be given if the patient is NPO. Dose based on standard build from Insulin Calculator. Do not modify insulin doses in administration instructions!, Glucose less than 70 instructions: Obtain STAT lab blood glucose and call covering provider., Glucose 80-150 (units): 0, Glucose 151-200 (units): 2, Glucose 201-250 (units): 4, Glucose 251-300 (units): 6, Glucose greater than 300 (units): 8, Glucose greater than 300 instructions: Give suggested insulin dose and call covering provider. 0000 (Not Given - Provider: Cindi Newton RN - Reason: Parameter(s) Not Met)0559 (Given - Provider: Cindi Newton RN)1203 (Given - Provider: Elaina Maurer RN - Comment: BSBS 208) insulin aspart (NovoLOG) inj (CANCELED) Subcutaneous, W/MEALS AND HS, First dose (after last modification) on Wed04/11/24 at 1700, Until Discontinued, MEDIUM DOSE (Usual starting dose): Sliding Scale Correctional insulin may be given if the patient is NPO. Dose based on standard build from Insulin Calculator. Do not modify insulin doses in administration instructions!, Glucose less than 70 instructions: Obtain STAT lab blood glucose and call covering provider., Glucose 80-150 (units): 0, Glucose 151-200 (units): 2, Glucose 201-250 (units): 4, Glucose 251-300 (units): 6, Glucose greater than 300 (units): 8, Glucose greater than 300 instructions: Give suggested insulin dose and call covering provider. 1723 (Given - Provider: Elaina Maurer RN - Comment: BSBS 235)2139 (Given - Provider: Cindi Newton RN) 0827 (Given - Provider: Linette Villa LPN)1204 (Given - Provider: Linette Villa LPN) insulin aspart (NovoLOG) inj Subcutaneous, W/MEALS AND HS, First dose on Wed04/12/24 at 1700, Until Discontinued, HIGH DOSE, Insulin sensitivity factor (ISF) = 30 (Moderately Insulin Resistance) Serum Blood Sugarless than 70 mg/dl or symptomatic (obtain STAT lab blood sugar and notify provider); 151 - 180 mg/dl (1 units); 181 - 210 mg/dl (2 units); 211 - 240 mg/dl (3 units); 241 - 270 mg/dl (4 units); 271 - 300 mg/dl (5 units); 301 - 330 mg/dl (6 units); 331 - 360 mg/dl (7 units); 361 - 390 mg/dl (8 units); greater than 390 mg/dl (call provider) Correctional insulin may be given if the patient is NPO. 173 (Given - Provider: Linette Villa LPN)2127 (Given - Provider: Cindi Newton RN) 08 (Given - Provider: Linette Villa LPN)120 (Given - Provider: Lintete Villa LPN) Insulin Glargine (Lantus) inj 10 Units (CANCELED) 10 Units, Subcutaneous, AMHS, First dose on Wed04/12/24 at 2200, Until Discontinued, "IF DOSE IS HELD- NOTIFY COVERING PROVIDER!" 2128 (Given - Provider: Cindi Newton RN) Insulin Glargine (Lantus) inj 15 Units (CANCELED) 15 Units, Subcutaneous, AMHS, First dose (after last modification) on Wed04/13/24 at 0815, Until Discontinued, "IF DOSE IS HELD- NOTIFY COVERING PROVIDER!" 806 (Given - Provider: Linette Villa LPN) Insulin Glargine (Lantus) inj 30 Units 30 Units, Subcutaneous, AMHS, First dose (after last modification) on Wed04/13/24 at 2200, Until Discontinued, "IF DOSE IS HELD- NOTIFY COVERING PROVIDER!" Lidocaine (Aspercreme) 4 % patch 1 Patch 1 Patch, Transdermal, Daily(AM), First dose on Wed04/11/24 at 1800, Until Discontinued, Apply patch for 12 hours then remove for 12 hours! Remove any Lidocaine patches the patient may currently be wearing prior to applying the new patch 175 (Patch Applied - Provider: Elaina Maurer RN) 0557 (Patch Removed - Provider: Cindi Newton RN)08 (Patch Applied - Provider: Linette Villa LPN)2025 (Patch Removed - Provider: Cindi Newton RN) 08 (Patch Applied - Provider: Linette Villa LPN - Comment: lower middle back)1356 (Due: Patch Removed - Provider: Discharge, Physician - Comment: Time automatically adjusted from order being discontinued) losartan (Cozaar) tab 100 mg 100 mg, Oral, Daily(AM), First dose on Wed04/11/24 at 1045, Until Discontinued 1157 (Given - Provider: Elaina Maurer RN) 0825 (Given - Provider: Linette Villa LPN) 08 (Given - Provider: Linette Villa LPN) metoclopramide (Reglan) inj 10 mg 10 mg, IV Push, Q8H, First dose on Wed04/11/24 at 1400, Until Discontinued 1419 (Given - Provider: Elaina Maurer RN)213 (Given - Provider: Cindi Newton RN) 0553 (Given - Provider: Cindi Newton, NEPTALI)1348 (Given - Provider: Mia Taylor RN)213 (Given - Provider: Cindi Newton, NEPTALI) 0602 (Given - Provider: Cindi Newton RN) metoprolol succinate XL (toPROL XL) tab 100 mg 100 mg, Oral, BID (.AM/PM), First dose on Wed04/11/24 at 1045, Until Discontinued, Hold for HR less than 60 or SBP below 100 and notify service if dose is held This med should NOT be Crushed or Chewed. 1158 (Given - Provider: Elaina Maurer RN)2138 (Given - Provider: Cindi Newton RN) 08 (Given - Provider: Linette Villa LPN)2123 (Given - Provider: Cindi Newton RN) 08 (Given - Provider: Linette Villa LPN) milk of magnesia (Mom) oral susp 30 mL (COMPLETED) 30 mL, Oral, ONCE, On Wed04/11/24 at 1645, For 1 dose 1628 (Given - Provider: Elaina Maurer RN) Naloxegol Oxalate (Movantik) tab 25 mg 25 mg, Oral, Daily(AM), First dose on Wed04/12/24 at 0900, Until Discontinued, May crush and mix with 2 to 4 oz of water for administration. Refill cup or oral syringe with water and administer any remaining medication. 0838 (Given - Provider: Linette Villa LPN) 0805 (Given - Provider: Linette Villa LPN) Pantoprazole (Protonix) inj 40 mg (CANCELED) 40 mg, IV Push, Daily(AM), First dose on Wed04/11/24 at 0900, Until Discontinued, IV push instructions: Flush I.V. Line before and after administration. In-line filter not required. 2-minute infusion: The volume of reconstituted solution (4mg/ml) to be injected may be administered intravenously over at least 2 minutes. ( Dilute each vial with 10 ml of 0.9% saline PF) 0829 (Given - Provider: Elaina Maurer RN) pantoprazole (Protonix) tab 40 mg 40 mg, Oral, BEFORE BREAKFAST, First dose on Wed04/12/24 at 0745, Until Discontinued, This med should NOT be Crushed or Chewed 0647 (Given - Provider: Cindi Newton RN) 06 (Given - Provider: Cindi Newton RN) Polyethylene Glycol 3350 (Miralax) oral powder 17 g 17 g (1 Packet), Oral, BID (0900,2100), First dose on Wed04/11/24 at 1630, Until Discontinued, Mix in 8 oz of water, juice, soda, coffee, or tea. 1628 (Given - Provider: Elaina Maurer RN) 0826 (Given - Provider: Linette Villa LPN)212 (Given - Provider: Cindi Newton RN) 0806 (Given - Provider: Linette Villa LPN) senna (Senokot) 2 Tablet 2 Tablet, Oral, Daily(AM), First dose on Wed04/11/24 at 1630, Until Discontinued 1628 (Given - Provider: Elaina Maurer RN) 0825 (Given - Provider: Linette Villa LPN) 0807 (Given - Provider: Linette Villa LPN) Continuous Medication Order 04/11/2024 04/12/2024 04/13/2024 NSS infusion (CANCELED) Intravenous, at 125 mL/hr, CONTINUOUS, Starting on Wed04/10/24 at 2115, Until Wed04/11/24 at 1004 0328 (Stopped - Provider: Cindi Newton RN)0328 (New Bag - Provider: Cindi Newton RN)0626 (Rate Verify - Provider: Cindi Newton RN)1004 (Stopped - Provider: Elaina Maurer RN) NSS infusion Intravenous, at 75 mL/hr, CONTINUOUS, Starting on Wed04/12/24 at 0945, Until Wed04/13/24 at 1756 1036 (New Bag - Provider: Linette Villa LPN)2329 (New Bag - Provider: Cindi Newton, RN) 0318 (Rate Verify - Provider: Cindi Newton RN)1756 (Due: Stopped) PRN Medication Order 04/11/2024 04/12/2024 04/13/2024 Acetaminophen (Tylenol) tab 975 mg 975 mg, Oral, Q6H PRN Pain, Mild, Starting on Wed04/11/24 at 1559, Until Wed04/13/24 at 1756, Maximum of 4 grams (4000 mg) per day. 0833 (Given - Provider: Linette Villa LPN) 0619 (Given - Provider: Cindi Newton RN) albuterol (VENTOLIN HFA/PROVENTIL HFA) inhaler 1 Puff, Inhalation, Q6H PRN Dyspnea, Starting on Wed04/10/24 at 2027, Until Wed04/13/24 at 1756, Shake can for 10 seconds before each puff SEND INHALER WITH PATIENT! WASTE INFO ( IF NOT SENT HOME WITH PATIENT) : Return unused medication to pharmacy in zip lock bag for disposal into black container labeled SP. dextrose 50% inj 25 mL 25 mL, IV Push, PRN Hypoglycemia, Other, For blood glucose 54 - 69 mg/dL or 70 - 100 mg/dL with symptoms AND patient is unresponsive, NPO, OR unable to swallow, Starting on Wed04/10/24 at 2201, Until Swapna 04/13/24 at 1756, Administer IV. Recheck blood glucose after 15 minutes. Notify provider. dextrose 50% inj 50 mL 50 mL, IV Push, PRN Hypoglycemia, Other, For blood glucose below 54 mg/dL AND patient unresponsive, NPO, OR unable to swallow, Starting on Wed04/10/24 at 2201, Until Wed04/13/24 at 1756, Administer IV. Recheck blood glucose in 15 minutes. Notify provider. glucagon (Glucagen) inj 1 mg 1 mg, Intramuscular, PRN Hypoglycemia, Other, If patient is unresponsive, or NPO and has no IV access, Starting on Wed04/10/24 at 2201, Until Wed04/13/24 at 1756, NPO and no IV access with either 1) blood glucose less than 100 mg/dL and symptomatic OR 2) blood glucose less than 70 mg/dL and asymptomatic Glucose (Glutose 15) 40 % gel 15 g of glucose 15 g of glucose, Oral, PRN Hypoglycemia (low sugar), Other, For blood glucose 54 - 69 mg/dL or 70 - 100 mg/dL with symptoms AND patient alert WITH difficulty chewing/swallowing, Starting on Wed04/10/24 at 2201, Until Wed04/13/24 at 1756, Administer gel. Recheck blood glucose after 15 minutes. Notify provider. 37.5 gram tube = 15 grams glucose = 1 each Glucose (Glutose 15) 40 % gel 30 g of glucose 30 g of glucose, Oral, PRN Hypoglycemia (low sugar), Other, For blood glucose below 54 mg/dL AND patient alert WITH difficulty chewing/swallowing, Starting on Wed04/10/24 at 2201, Until Wed04/13/24 at 1756, Administer gel. Recheck blood glucose after 15 minutes. Notify provider. 37.5 gram tube = 15 grams glucose = 1 each glucose chew tab 16 g 16 g, Oral, PRN Hypoglycemia, Other, For blood glucose 54 - 69 mg/dL or 70 - 100 mg/dL with symptoms and patient alert without difficulty chewing/swallowing., Starting on Wed04/10/24 at 2201, Until Wed04/13/24 at 1756 morphine sulfate inj 2 mg (CANCELED) 2 mg, IV Push, Q4H PRN Pain, Moderate, Pain, Severe, Starting on Wed04/10/24 at 2324, Until Wed04/11/24 at 1433 0422 (Given - Provider: Cindi Newton RN)0829 (Given - Provider: Elaina Maurer RN) ondansetron (Zofran) inj 4 mg 4 mg, IV Push, Q6H PRN Nausea, Starting on Wed04/10/24 at 2030, Until Wed04/13/24 at 1756 sodium chloride 0.9 % flush/inj 3 mL 3 mL, IV Push, PRN Other, Line Patency, Starting on Wed04/10/24 at 2028, Until Swapna 04/13/24 at 1756, Do not flush if lock, PICC, or central line not in place, IV infusing or unable to flush traMADol (Ultram) tab 50 mg 50 mg, Oral, Q6H PRN Pain, Severe, Starting on Wed04/11/24 at 1210, Until Swapna 04/13/24 at 1756 1238 (Given - Provider: Carlota Guzmán RN) 0556 (Given - Provider: Cindi Newton RN)1739 (Given - Provider: Linette Villa LPN) 0430 (Given - Provider: Cindi Newton RN) documented in this encounter Advance Directives * [...] Directives occurred with: Not Discussed Care Teams Knife Setter Relationship Specialty Start Date End Date Velasquez Valencia MD [address] [place] [place] [address] PCP - General Family Medicine 09/09/22 documented as of this encounter
--- OUTSIDE RECORDS SUMMARY | 2024-07-14 04:47 | External Medical Summary | Summary of Care ---
Author Name Unknown Organization [facility] Address [address] [address] Phone [phone] Care Team Providers Care Hand Hose Cutter Name Role Phone Velasquez Valencia MD Primary Care Provider [phone] Reason for Visit * Reason Onset Date Comments Advice 04/11/2024 Encounter Details Date Type Department Care Team (Late st Contact Info) Description 04/11/2024 Telephone [facility] [address] [place] [address] Velasquez Valencia MD [address] [place] [address] Advice Allergies Active Allergy Reactions Criticality Noted Date Comments Cefaclor Unknown 07/26/2018 As child Empagliflozin Other (Please comment) 05/16/2021 DKA with hospitalization Nsaids High 04/19/2019 Gastric problems Other Reaction(s): gastroparesis, kidney problems, use with caution : hx esophagus damage documented as of this encounter (statuses as of 04/13/2024) Medications Medication Sig Dispensed Refills Start Date [...] in the morning 30 Tablet 4 Active Clindamycin HCl 300 MG Oral [...] as of this encounter (statuses as of 04/13/2024) Active Problems Problem Noted Date Diagnosed Date [...] as of this encounter (statuses as of 04/13/2024) Resolved Problems Problem Noted Date Diagnosed Date [...] as of this encounter (statuses as of 04/13/2024) Immunizations Name Administration Dates Next Due COVID-19 mRNA, LNP-s, No Pre serve, 2-Dose Series ([employer]) 10/21/2021,03/01/2021,02/07/2021 H1N1 2009 Influenza, IM 11/04/2009 Pneumococcal Conjugate Vacci ne, 20-valent ([id number]) 07/09/2023 Pneumococcal Polysaccharide PPV23 (Pneumovax) 11/03/2015,02/09/2006 Seasonal [...] encounter Miscellaneous Notes * Telephone Encounter - Ashley Taylor RN - 04/13/2024 1:54 PM EDT Spoke with Ni- patient is getting discharged from [facility] today and she is going to be taking him home. He will not be accepted anywhere for rehab because he signed himself out AMA. She said he is getting "funny, like depressed." Explained that she needs to make sure he goes to his hospital follow up tomorrow and this CM can reach out for BECCA, and assistance in facilitating home resources. Explained that due to his age and the situation, he may not qualify for much. She verbalizes understanding. * Telephone Encounter - Devora Lauren OSA - 04/12/2024 9:16 AM EDT Ni calling asking to speak to nurse regarding patient being discharged. Would also like to discuss [facility] facility. * Telephone Encounter - Frannie Medina LPN - 04/11/2024 4:18 PM EDT Ni states that patient is going to be discharged from [facility] tomorrow He is still having a great deal of pain but they do not think he has pancreatitis now She does not know what is causing his pain She also had questions about how to get equipment that patient requires since he is an amputee now Advised when patient comes in on Wednesday to see PCP he can address the issues of equipment that is needed and then the documentation for insurance will be in the office visit She states that she needs to talk to Ashley Taylor (case management) regarding how to get go about getting patient into a skilled facility for therapy She is asking for a call back when she is available FYI to PCP * Telephone Encounter - Cindy Saul OSA - 04/11/2024 4:14 PM EDT Reason for patient's call: Pt's other Ni wants to speak to a nurse Caller was transferred to [facility] at the nurse line. documented in this encounter Plan of Treatment Upcoming Encounters Date Type Department Care Team (Late st Contact Info) Description 04/14/2024 11:20 AM EDT [facility] [place] [address] [id number] Velasquez Valencia [facility] [address] [id number] 04/14/2024 6:10 PM EDT Pharmacy Pharm[facility], [place] [address] [address] [place] [facility] [address] [place] [address] 05/08/2024 11:40 AM EDT Office Visit [place] [address] [phone] Velasquez Valencia MD [address] [place] [facility] [address] Scheduled Procedures Name Priority Associated Diagnoses Date/Ti [...] 02/07/2021 DISCUSS TOBACCO CESSATION (REFER TO SMARTSET #9331) 10/16/2023 10/16/2022 Zoster Vaccines (1 of 2) [...] this encounter Medical Devices Implanted Type Area Boating Safety Officer Device Identifier Shelf Expiration Date Model / Serial / Lot Suture [place] Dbl Load 4.75mm - [id number] Implanted:Qty: 1 on 12/01/2019 by Judith Condon, DO at [facility] Right: Shoulder [employer] 07/17/2021 [id number] -2 / / [id number] Suture [place] Dbl Load 5.5mm - [id number] Implanted:Qty: 1 on 12/01/2019 by Judith Condon DO at [facility] Right: Shoulder [employer] 09/16/2021 [id number] -2 / / [id number] documented as of this encounter Advance Directives * Full Code (Latest Code Status on File) Date Activated Date Inactivated Comments 04/10/2024 8:31 PM This order ref lects the patients wishes and were consensually agreed [...] Directives occurred with: Not Discussed Care Teams Hand Hose Cutter Relationship Specialty Start Date End Date Velasquez Valencia MD [address] [place] [facility] [place] [address] PCP - General Family Medicine 09/09/22 documented as of this encounter
--- OUTSIDE RECORDS SUMMARY | 2024-07-14 04:48 | External Medical Summary ---
Author Name Unknown Address Unknown Organization [id number]:[facility] - [address] [place] [address] Laboratory Report Ordering Provider Test Date Status MIN,MAW 04/12/2024 09:45:00 Final Observation Date Value Abnormality Reference (Units ) Status Albumin 04/12/2024 09:45:00 4.1 3.8-5.0 (g/dL) Final AST (Aspartate aminotransferase) 04/12/2024 09:45:00 31 10-50 (U/L) Final Alk Phos 04/12/2024 09:45:00 115 35-130 (U/L) Final ALT (Alanine aminotransferase) 04/12/2024 09:45:00 44 10-50 (U/L) Final Bilirubin, Total 04/12/2024 09:45:00 0.4 <=1.2 (mg/dL) Final Bilirubin, Direct 04/12/2024 09:45:00 <0.2 0.0-0.3 (mg/dL) Final Protein 04/12/2024 09:45:00 7.7 6.0-8.3 (g/dL) Final Performing Location [facility] - [address] [place] [address]
--- OUTSIDE RECORDS SUMMARY | 2024-07-14 04:48 | External Medical Summary | Summary of Care ---
Author Name Unknown Organization [facility] Address [address] [facility] [place] [address] Phone [phone] Care Team Providers Care Privacy Specialist Name Role Phone Velasquez Valencia MD Primary Care Provider [phone]- [phone] Reason for Visit * Reason Onset Date Comments Hospital Follow-Up 04/12/2024 Telepharmacy [facility] Encounter Details Date Type Department Care Team (Late st Contact Info) Description 04/12/2024 Telephone Centralized Clinical [facility] Services, [place] [address] [place] [address] [place] [address] [facility], [place] [address] [facility] [place] [address] Hospital Follow-Up (Telepharmacy [facility]) Allergies Active Allergy Reactions Criticality Noted Date Comments Cefaclor Unknown 07/26/2018 As child Empagliflozin Other (Please comment) 05/16/2021 DKA with hospitalization Nsaids High 04/19/2019 Gastric problems Other Reaction(s): gastroparesis, kidney problems, use with caution : hx esophagus damage documented as of this encounter (statuses as of 04/12/2024) Medications Medication Sig Dispensed Refills Start Date End Date Status Albuterol Sulfate HFA 108 (90 Base) MCG/ACT Inhalation Aerosol SolutionIndication s:RSV bronchitis inhale 2 puffs by mouth and INTO THE LUNGS every 6 hours if needed for cough shortness of breath or WITHDRAWAL SYMPTOMS 54 g 3 10/29/2022 Suspended Additional Information Famotidine 20 MG Oral Tablet (Pepcid) Take 1 Tablet by mouth every night at bedtime. 90 Tablet 3 04/24/2023 Suspended Additional Information Dicyclomine HCl 10 MG Oral Capsule (Bentyl) take 1 capsule by mouth four times a day 360 Capsule 3 05/10/2023 Suspended Additional Information metFORMIN HCl 500 MG Oral Tablet (Glucophage)Indica tions:Type 2 diabetes mellitus with hemoglobin A1c goal of less than 7.0% (HCC) Take 2 Tablets by mouth in the morning and 2 Tablets in the evening. 360 Tablet 3 06/18/2023 Suspended Additional Information Gabapentin 100 MG Oral Capsule (Neurontin)Indicat ions:Neuropathy take 1 capsule by mouth every morning and 2 capsules by mouth at bedtime 270 Capsule 1 08/03/2023 Suspended Additional Information Patient taking differently: 200 mg Oral BID (.AM/PM), take 2 capsule by mouth every morning and 2 capsules by mouth at bedtime, Reported on 03/03/2024 Losartan Potassium 100 MG Oral Tablet (Cozaar) Take 1 Tablet by mouth in the morning. 90 Tablet 3 10/07/2023 Suspended Additional Information Atorvastatin Calcium 20 MG Oral Tablet (Lipitor) Take 1 Tablet by mouth in the morning. 90 Tablet 3 10/07/2023 Suspended Additional Information Metamucil 0.52 GM Oral Capsule (Psyllium) Take 1 Capsule by mouth in the morning and 1 Capsule at noon and 1 Capsule before bedtime. 30 Capsule 11/05/2023 Suspended Additional Information Polyethylene Glycol 3350 17 GM Oral Packet (Miralax) Mix 1 Packet in 4 to 8 ounces of any beverage and drink by mouth in the morning. 14 Each 11/06/2023 Suspended Additional Information Torsemide 10 MG Oral Tablet (Demadex) Take 1 Tablet by mouth in the morning. 30 Tablet 11/06/2023 Suspended Additional Information Ondansetron HCl 4 MG Oral Tablet Take 1 Tablet by mouth every 8 hours as needed for Nausea. 20 Tablet 11/05/2023 Suspended Additional Information Spironolactone 25 MG Oral Tablet (Aldactone) Take 1 Tablet by mouth in the morning. 90 Tablet 3 11/08/2023 Suspended Additional Information Aspirin 81 MG Oral Tablet Delayed Release Take 1 Tablet by mouth in the morning. 90 Tablet 3 11/08/2023 Suspended Additional Information Metoprolol Succinate ER 100 MG Oral Tablet Extended Release 24 Hour (toPROL XL)Indications:HTN , goal below 140/90 Take 1 tab by mouth twice per day 180 Tablet 3 12/29/2023 Suspended Additional Information Pantoprazole Sodium 40 MG Oral Tablet Delayed Release (Protonix) TAKE 1 TABLET BY MOUTH TWICE A DAY 180 Tablet 1 01/08/2024 Suspended Additional Information Toumeghna SoloStar 300 UNIT/ML Subcutaneous Solution Pen-injector (Insulin Glargine (1 Unit Dial))Indications: Type 2 diabetes mellitus with hemoglobin A1c goal of less than 7.0% ([facility]) Inject 40 units twice daily- this replaces lantus 54 mL 4 01/19/2024 Suspended Additional Information BD Pen Needle Short U/F 31G X 8 MM (Insulin Pen Needle)Indications :Type 2 diabetes mellitus with hemoglobin A1c goal of less than 7.0% ([facility]) Use to inject insulin 5 times daily 500 Each 3 01/19/2024 Suspended Additional Information Insulin Aspart FlexPen 100 UNIT/ML Subcutaneous Solution Pen-injectorIndica tions:Type 2 diabetes mellitus with hemoglobin A1c goal of less than 7.0% ([facility]) Inject 32 units with breakfast 22 units with lunch and 22 units with supper plus CF of 1:12 over 150. Max daily dose of 115 units 120 mL 4 02/16/2024 Suspended Additional Information Pioglitazone HCl 45 MG Oral Tablet (Actos)Indications :Type 2 diabetes mellitus with hemoglobin A1c goal of less than 7.0% ([facility]) Take 1 Tablet by mouth in the morning. Please fill in about a month- patient is going to be using up his current supply of 15 mg and 30 mg tablets. 90 Tablet 4 02/16/2024 Suspended Additional Information traMADol HCl 50 MG Oral Tablet (Ultram)Indication s:Abdominal pain, epigastric Take 1 Tablet by mouth every 6 hours as needed for Pain, Severe. 40 Tablet 02/22/2024 Suspended Additional Information Clindamycin HCl 300 MG Oral Capsule Take 1 Capsule by mouth in the morning and 1 Capsule at noon and 1 Capsule in the evening and 1 Capsule before bedtime. 03/02/2024 Suspended hydroCHLOROthiazid e 25 MG Oral Tablet (Hydrodiuril) Take 1 Tablet by mouth in the morning. 09/22/2023 Suspended Cyclobenzaprine HCl 10 MG Oral Tablet (Flexeril)Indicati ons:Lumbar disc herniation TAKE 1 TABLET BY MOUTH AT BEDTIME ONLY NEEDED 30 Tablet 03/22/2024 Suspended Additional Information Movantik 25 MG Oral Tablet (Naloxegol Oxalate) take 1 tablet by mouth in the morning 30 Tablet 03/27/2024 Suspended Additional Information Metoclopramide HCl 10 MG Oral Tablet (Reglan) take 1 tablet by mouth three times a day ( 30 MINUTES before MEALS ) 270 Tablet 1 04/05/2024 Suspended Additional Information documented as of this encounter (statuses as of 04/12/2024) Active Problems Problem Noted Date Diagnosed Date [...] as of this encounter (statuses as of 04/12/2024) Resolved Problems Problem Noted Date Diagnosed Date [...] diabetes mellitus 03/02/2021 07/04/2021 Intellectual disability 10/25/2019 01/03/2022 Obesity, Class II, BMI 35-39 .9, isolated [...] as of this encounter (statuses as of 04/12/2024) Immunizations Name Administration Dates Next Due COVID-19 mRNA, LNP-s, No Pre serve, 2-Dose Series (Pfizer) 10/21/2021,03/01/2021,02/07/2021 H1N1 2009 Influenza, IM 11/04/2009 Pneumococcal Conjugate Vacci ne, 20-valent ([id number]) 07/09/2023 Pneumococcal Polysaccharide PPV23 (Pneumovax) 11/03/2015,02/09/2006 Seasonal [...] No 01/14/2024 Does the household have a [place] service unitlar source of income? (Household - for ages [...] Description 04/14/2024 11:20 AM EDT Office Visit [facility], [place] [address] [place] [facility] [phone] Velasquez Valencia MD [address] [place] [address] 04/14/2024 6:10 PM EDT Pharmacy Pharmacy, [place] [address] [place] [address] [facility] [address] [place] [address] 05/08/2024 11:40 AM EDT Office Visit [facility], [place] [address] [place] [facility] [phone] Velasquez Valencia MD [address], [place] [id number] Scheduled Procedures Name Priority Associated Diagnoses Date/Ti [...] PAST YEAR FOR COPD 02/21/2025 02/22/2024 GFR 04/12/2025 04/12/2024, 03/19, 04/10/2024, Additional history exists DTaP,Tdap,and Td Vaccines (2 [...] encounter Medical Devices Implanted Type Area School Based Therapist Device Identifier Shelf Expiration Date Model / Serial / Lot Suture [place] Dbl Load 4.75mm - [id number] Implanted:Qty: 1 on 12/01/2019 by Judith Condon, DO at OR [facility] Right: Shoulder [employer] 07/17/2021 AR-2324BCT -2 / / [id number] Suture [place] Dbl Load 5.5mm - [id number] Implanted:Qty: 1 on 12/01/2019 by Judith Condon, at OR [facility] Right: Shoulder [employer] 09/16/2021 AR-2323BCT -2 / / [id number] documented as of this encounter Advance Directives [...] 5:27 PM 11/05/2023 5:40 PM This order reflects the patients wishes and were consensually agreed upon. Question Answer Comments Discussion of Advance Directives occurred with: Patient * Full Code Date Activated Date Inactivated Comments 11/30/2021 9:36 PM 12/01/2021 9:03 PM This order r eflects the patients wishes and were consensually agreed upon. Question Answer Comments Discussion of Advance Directives occurred with: Not Discussed Care Teams Privacy Specialist Relationship Specialty Start Date End Date Velasquez Valencia MD [address] [place] [address] PCP - General Family Medicine 09/09/22 documented as of this encounter
--- OUTSIDE RECORDS SUMMARY | 2024-07-14 04:48 | External Medical Summary | Summary of Care ---
Author Name Unknown Organization [facility] [address] [facility] [address] Phone [phone] Care Team Providers Care Store Administrator Name Role Phone Velasquez Valencia MD Primary Care Provider +1- [phone] Reason for Visit * Reason Onset Date Comments Advice 04/10/2024 Encounter Details Date Type Department Care Team (Late st Contact Info) Description 04/10/2024 Telephone [facility] [address] [place] [address] Velasquez Valencia MD [address] [place] [address] Advice Allergies Active Allergy Reactions [...] 180 Tablet 1 01/08/2024 Suspended Additional Information Timmy SoloStar 300 UNIT/ML Subcutaneous Solution Pen-injector (Insulin Glargine (1 Unit Dial))Indications: Type 2 diabetes mellitus with hemoglobin A1c goal of less than 7.0% ([facility]) Inject 40 units twice daily- this replaces lantus 54 mL 4 01/19/2024 Suspended Additional Information BD Pen Needle Short U/F 31G X 8 MM (Insulin Pen Needle)Indications :Type 2 diabetes mellitus with hemoglobin A1c goal of less than 7.0% ([facility]) Use to inject insulin 5 times daily 500 Each 3 01/19/2024 Suspended Additional Information Insulin Aspart FlexPen 100 UNIT/ML Subcutaneous Solution Pen-injectorIndica tions:Type 2 diabetes mellitus with hemoglobin A1c goal of less than 7.0% ([facility]) Inject 32 units with breakfast 22 units with lunch and 22 units with supper plus CF of 1:12 over 150. Max daily dose of 115 units 120 mL 4 02/16/2024 Suspended Additional Information Pioglitazone HCl 45 MG Oral Tablet (Actos)Indications :Type 2 diabetes mellitus with hemoglobin A1c goal of less than 7.0% ([facility]) Take 1 Tablet by mouth in [...] Active Problems Problem Noted Date Diagnosed Date S/P hardware removal 03/03/2024 Ankle wound, left, initial encounter 03/03/2024 Cellulitis of left lower extremity 03/03/2024 Acute pancreatitis 12/12/2023 History of diabetic ulcer of foot 12/12/2023 Fall 11/01/2023 Hypertensive emergency 10/30/2023 Elevated troponin 10/30/2023 Nausea and vomiting 10/27/2023 Generalized abdominal pain 10/27/2023 Constipation 10/27/2023 Charcot ankle, left 10/27/2023 [...] mRNA, LNP-s, No Pre serve, 2-Dose Series ([employer]) 10/21/2021,03/01/2021,02/07/2021 H1N1 2009 Influenza, IM 11/04/2009 Pneumococcal Conjugate Vacci ne, 20-valent ([id number]) 07/09/2023 Pneumococcal Polysaccharide PPV23 (Pneumovax) 11/03/2015,02/09/2006 Seasonal [...] you have serious difficulty h earing? No 03/03/2024 Are you blind or do you have serious difficulty seeing, even when wearing glasses? No 03/03/2024 Do you have serious difficul ty walking or climbing stairs? (5 years old or older) Yes 03/03/2024 Do you have difficulty dress ing or bathing? (5 years old or older) No 03/03/2024 Because of a physical, menta l, or emotional condition, do you have difficulty doing errands alone such as visiting a doctor s office or shopping? (15 years old or older) No 03/03/20 Cognitive Status Response Date of Assessm ent Because of a physical, menta l, or emotional condition, do you have serious difficulty concentrating, remembering, or making decisions? (5 years old or older) No 03/03/2024 documented as of this encounter Miscellaneous Notes * Telephone Encounter - Hannah White RN - 04/10/2024 2:34 PM EDT See TE from 04/10/2024. * Telephone Encounter - Elaina Queen LPN - 04/10/2024 9:08 AM EDT Spoke to patient's SO, was able to schedule hospital follow up for Saturday 04/14, she is asking Ashley Taylor to call her to go over some case management details * Telephone Encounter - Suzanne England OSA - 04/10/2024 8:57 AM EDT Reason for patient's call:patients girlfriend is requesting to speak to someone at the office. Patient is a recent amputee and she says he has to get in as soon as possible. She is requesting to speak to Ashley Taylor, the director case management, Or someone in the office. Caller was transferred to Elaina at the nurse line. * Telephone Encounter - Ni Obrien OSA - 04/10/2024 7:28 AM EDT Pts girlfriend Ni calling in asking if pt can see Dr. Olivares this week. Pt is out of the hospital and needs seen MIREILLE so he can get his rehab started. They have a bunch of authorizations that need filled out. I did try to offer her other providers in the office and she declined, only wants Dr. Valencia. Can you please advise. documented in this encounter Plan of Treatment Upcoming Encounters Date Type Department Care Team (Late st Contact Info) Description 04/14/2024 11:20 AM EDT Office Visit [address] [place] [address] Velasquez Valencia MD [address] [place] [place] [address] 04/14/2024 6:10 PM EDT Pharmacy [facility] [place] [address] [facility] [address] [facility] [address] [facility] [place] [address] 05/08/2024 11:40 AM EDT Office Visit [facility], [place] [address] [facility], [place] [phone] Velasquez Valencia MD [address] [place] [address] Scheduled Procedures Name Priority Associated Diagnoses Date/Ti [...] PAST YEAR FOR COPD 02/21/2025 02/22/2024 GFR 04/11/2025 04/11/2024, 03/19, 03/06/2024, Additional history exists DTaP,Tdap,and Td Vaccines (2 [...] encounter Medical Devices Implanted Type Area Test [employer] Reactor Operator Device Identifier Shelf Expiration Date Model / Serial / Lot Suture [place] Dbl Load 4.75mm - [id number] Implanted:Qty: 1 on 12/01/2019 by Judith Condon DO at OR [facility] Right: Shoulder [employer] 07/17/2021 AR-2324BCT -2 / / [id number] Suture [place] Dbl Load 5.5mm - [id number] Implanted:Qty: 1 on 12/01/2019 by Judith Condon DO at OR [facility] Right: Shoulder [employer] 09/16/2021 AR-2323BCT -2 / / [id number] documented as of this encounter Advance Directives [...] Directives occurred with: Not Discussed Care Teams Store Administrator Relationship Specialty Start Date End Date Velasquez Valencia MD [address] [place] [address] PCP - General Family Medicine 09/09/22 documented as of this encounter
--- OUTSIDE RECORDS SUMMARY | 2024-07-14 04:48 | External Medical Summary | Summary of Care ---
Author Name Unknown Organization [facility] Address [address] [place] [address] Phone [phone] Care Team Providers Care Director Of Placement Name Role Phone Velasquez Valencia MD Primary Care Provider [phone] Reason for Visit * Reason Onset Date Comments Outpatient Testing 12/13/2023 Encounter Details Date Type Department Care Team (Late st Contact Info) Description 12/13/2023 Telephone Gastroenterology, [address] [phone] Devora Gonzalez PA-C [address] [place] [id number] Outpatient Testing (/) Allergies Active Allergy Reactions Criticality Noted [...] area as directed. 100 g 5 01/12/20 20 024 Discontinued docusate sodium (RA COL-RITE) 100 MG Capsule Take 1 Cap by mouth 2 times a day as needed for Constipation. 60 Cap 3 05/07/20 20 024 Discontinued CPAP every night at bedtime. 024 Discontinued Albuterol Sulfate HFA 108 (90 Base) MCG/ACT Inhalation Aerosol SolutionIndicati ons:RSV bronchitis inhale 2 puffs by mouth and INTO THE LUNGS every 6 hours if needed for cough shortness of breath or WITHDRAWAL SYMPTOMS 54 g 3 10/29/19 Suspended Additional Information Pantoprazole Sodium 40 MG Oral Tablet Delayed Release (Protonix) take 1 tablet by mouth twice a day 180 Tablet 1 01/08/20 23 024 Discontinued oxygen IN GAS Use 2 L/min(Oxygen) as directed at bedtime. 024 Discontinued Famotidine 20 MG Oral Tablet (Pepcid) Take 1 Tablet by mouth every night at bedtime. 90 Tablet 3 04/24/20 Suspended Additional Information Dicyclomine HCl 10 MG Oral Capsule (Bentyl) take 1 capsule by mouth four times a day 360 Capsule 3 05/10/20 Suspended Additional Information metFORMIN HCl 500 MG Oral Tablet (Glucophage)Yanet cations:Type 2 diabetes mellitus with hemoglobin A1c goal of less than 7.0% (HCC) Take 2 Tablets by mouth in the morning and 2 Tablets in the evening. 360 Tablet 3 06/18/20 Suspended Additional Information Insulin Aspart FlexPen 100 UNIT/ML Subcutaneous Solution Pen-injectorIndi cations:Type 2 diabetes mellitus with hemoglobin A1c goal of less than 7.0% (HCC) inject 16 units subcutaneously three times a day with meals 45 mL 3 06/18/20 024 Discontinued(Re fill) Unifine Pentips 31G X 5 MM (Insulin Pen Needle)Indicatio ns:Type 2 diabetes mellitus with hemoglobin A1c goal of less than 7.0% (HCC) Use as directed 4 times daily 400 Each 3 06/18/20 024 Discontinued Gabapentin 100 MG Oral Capsule (Neurontin)Indic ations:Neuropath y take 1 capsule by mouth every morning and 2 capsules by mouth at bedtime 270 Capsule 1 08/03/20 Suspended Additional Information Patient taking differently: 200 mg Oral BID (.AM/PM), take 2 capsule by mouth every morning and 2 capsules by mouth at bedtime, Reported on 03/03/2024 Metoclopramide HCl 10 MG Oral Tablet (Reglan) take 1 tablet by mouth three times a day ( 30 MINUTES before MEALS ) 270 Tablet 1 08/03/20 23 Discontinued(Re fill) Mounjaro 15 MG/0.5ML Subcutaneous Solution Pen-injector (Tirzepatide)Ind ications:Type 2 diabetes mellitus with hemoglobin A1c goal of less than 7.0% ([facility]) Inject 15 mg under the skin once a week. Dose increase 6 mL 4 09/15/20 23 024 Discontinued Losartan Potassium 100 MG Oral Tablet (Cozaar) Take 1 Tablet by mouth in the morning. 90 Tablet 3 10/07/20 Suspended Additional Information Atorvastatin Calcium 20 MG Oral Tablet (Lipitor) Take 1 Tablet by mouth in the morning. 90 Tablet 3 10/07/20 Suspended Additional Information oxyCODONE HCl 10 MG Oral Tablet (Roxicodone) Take 1 Tablet by mouth every 8 hours as needed for Pain, Moderate or Pain, Severe. 024 Discontinued Metamucil 0.52 GM Oral Capsule (Psyllium) Take 1 Capsule by mouth in the morning and 1 Capsule at noon and 1 Capsule before bedtime. 30 Capsule 11/05/19 24 Suspended Additional Information Polyethylene Glycol 3350 17 GM Oral Packet (Miralax) Mix 1 Packet in 4 to 8 ounces of any beverage and drink by mouth in the morning. 14 Each 11/06/19 Suspended Additional Information Torsemide 10 MG Oral Tablet (Demadex) Take 1 Tablet by mouth in the morning. 30 Tablet 11/06/19 24 Suspended Additional Information Ondansetron HCl 4 MG Oral Tablet Take 1 Tablet by mouth every 8 hours as needed for Nausea. 20 Tablet 11/05/19 24 Suspended Additional Information Sennosides-Docus ate Sodium 8.6-50 MG Oral Tablet (Senokot-S) Take 1 Tablet by mouth in the morning. 30 Tablet 11/06/19 24 024 Discontinued Naloxegol Oxalate 25 MG Oral Tablet (Movantik) Take 1 Tablet by mouth in the morning. 30 Tablet 11/08/19 24 024 Discontinued Metoprolol Succinate ER 100 MG Oral Tablet Extended Release 24 Hour (toPROL XL) Take 1 tab by mouth in the morning and a half tab in evening 135 Tablet 3 11/08/19 24 024 Discontinued(Re fill) Spironolactone 25 MG Oral Tablet (Aldactone) Take 1 Tablet by mouth in the morning. 90 Tablet 3 11/08/19 24 Suspended Additional Information Aspirin 81 MG Oral Tablet Delayed Release Take 1 Tablet by mouth in the morning. 90 Tablet 3 11/08/19 24 Suspended Additional Information Fluticasone-Salm eterol 115-21 MCG/ACT Inhalation Aerosol (Advair HFA) Inhale 2 Puffs by mouth in the morning and 2 Puffs before bedtime. 12 g 12 11/17/19 24 024 Discontinued Insulin Glargine Solostar 100 UNIT/ML Subcutaneous Solution Pen-injectorIndi cations:Type 2 diabetes mellitus with hemoglobin A1c goal of less than 7.0% ([facility]) Inject 40 units in the morning and 40 units in the evening 11/29/19 24 024 Discontinued documented as of this encounter (statuses [...] IM 11/04/2009 Pneumococcal Conjugate Vacci ne, 20-valent (Hasnrva92) 07/09/2023 Pneumococcal Polysaccharide PPV23 (Pneumovax) 11/03/2015,02/09/2006 Seasonal [...] No 01/14/2024 Does the household have a [facility] source of income? (Household - [...] (15 years old or older) No 12/12/19 24 Cognitive Status Response Date of Assessm ent Because of a physical, menta l, or emotional condition, do you have serious difficulty concentrating, remembering, or making decisions? (5 years old or older) No 12/12/2023 documented as of this encounter Miscellaneous Notes * Telephone Encounter - Marielos Frankel OSA - 04/12/2024 10:59 AM EDT Letter sent DAMION Nielson 04/12/2024 10:59 AM * Telephone Encounter - Nini Pereira OSA - 03/08/2024 3:38 PM EDT Spoke to pt and he is an in pt at [facility]. He may be having his foot amputated. He will call back once he finds out what's going on. * Telephone Encounter - Devora Gonzalez PA-C - 03/06/2024 3:42 PM EDT Yes needs EUS for h/o pancreatitis Devora Gonzalez PA-C * Telephone Encounter - Jaye Gilmore OSA - 03/06/2024 9:39 AM EDT Does patient need EUS * Telephone Encounter - Nini Pereira OSA - 03/02/2024 11:17 AM EDT Pt had egd on 02/21. Do they still need EUS? * Telephone Encounter - Devora Gonzalez PA-C - 12/13/2023 12:54 PM EST Pt admitted to [facility] for pancreatitis. Please arrange OP EUS in 6-8 weeks. Thanks Devora Gonzalez PA-C 12/13/2023 Department of Gastroenterology documented in this encounter Plan of Treatment Upcoming Encounters Date Type Department Care Team (Late st Contact Info) Description 04/14/2024 11:20 AM EDT Office Visit [place] [address] [place] [facility] [place] [id number] Velasquez Valencia MD [address] [facility] [place] [place] [address] 04/14/2024 6:10 PM EDT Pharmacy Pharmacy, [place] [address] [place] [facility] [place] [address] [facility] [address] [place] [facility] [place] [address] 05/08/2024 11:40 AM EDT [facility] [place] [address] [facility] [phone] Velasquez Valencia MD [address] [facility] [place] [address] Scheduled Orders Name Type Priority Associated Diagnoses Orde r Schedule US ENDOSCOPIC Medical Imaging Routine Acute pancreatitis, unspecified complication status, unspecified pancreatitis type Expected: 01/11/2024, Expires: 01/10/2025 Scheduled Procedures Name Priority Associated Diagnoses Date/Ti [...] this encounter Medical Devices Implanted Type Area Undercollar Maker Device Identifier Shelf Expiration Date Model / Serial / Lot Suture Napier Dbl Load 4.75mm - [id number] Implanted:Qty: 1 on 12/01/2019 by Judith Condon DO at OR [facility] Right: Shoulder [employer] 07/17/2021 [id number] -2 / / [id number] Suture Napier Dbl Load 5.5mm - [id number] Implanted:Qty: 1 on 12/01/2019 by Judith Condon DO at OR [facility] Right: Shoulder [employer] 09/16/2021 [id number] -2 / / [id number] documented as of this encounter Visit Diagnoses Diagnosis Acute pancreatitis, unspecified complication status, unspecified pancreatitis type- Primary documented in this encounter Additional Health Concerns Infection Onset Date Last Indicated Resolved Time Respiratory Rule-Out 12/22/2023 12/22/2023 03 024 3:48 PM EST COVID-19 Rule-Out 12/22/2023 12/22/2023 12/22/2023 3:48 PM EST documented as of this encounter Advance Directives [...] with: Not Discussed Care Teams Director Of Placement Relationship Specialty Start Date End Date Velasquez Valencia MD [address] [facility] [place] [address] PCP - General Family Medicine 09/09/22 documented as of this encounter
--- OUTSIDE RECORDS SUMMARY | 2024-07-14 04:48 | External Medical Summary ---
Author Name Unknown Address Unknown Organization K1F:LABORATORY [facility] - [address] [address] Laboratory Report Ordering Provider Test Date Status TAWNYA ALONSOW 04/12/2024 09:45:00 Final Observation Date Value Abnormality Reference (Units ) Status BUN 04/12/2024 09:45:00 15 6-20 (mg/dL) Final Creatinine 04/12/2024 09:45:00 1.1 0.6-1.2 (mg/dL) Final Glomerular filtration rate/1.73 sq M.predicted [Volume Rate/Area] in Serum, Plasma or Blood by Creatinine-based formula (CKD-EPI) 04/12/2024 09:45:00 79 >=60 (mL/min) Final eGFR is calculated based on the CKD-EPI 2020 equation Sodium 04/12/2024 09:45:00 138 135-146 (m mol/L) Final Potassium 04/12/2024 09:45:00 4.2 3.5-5.1 (m mol/L) Final Cl 04/12/2024 09:45:00 98 98-107 (mm ol/L) Final CO2 04/12/2024 09:45:00 24 22-32 (mmo l/L) Final Anion gap 04/12/2024 09:45:00 16 Above high normal 7- 15 (mmol/L) Final Glucose 04/12/2024 09:45:00 250 Above high normal 70 -120 (mg/dL) Final Calcium 04/12/2024 09:45:00 10.1 8.4-10.2 ( mg/dL) Final Performing Location LAB[facility]ATORY [facility] - [address] [place] [address]
--- OUTSIDE RECORDS SUMMARY | 2024-07-14 04:48 | External Medical Summary ---
Author Name Unknown Address Unknown Organization K1F:LAB[facility]ATORY [facility] - [address] [facility] [place] [address] Laboratory Report Ordering Provider Test Date Status MINMAW 04/13/2024 04:30:00 Final Observation Date Value Abnormality Reference (Units ) Status SYNC LEUKOCYTES IN BLOOD BY AUTOMATED COUNT 04/13/2024 04:30:00 6.11 4.00-10.80 (K/uL) Final Segs 04/13/2024 04:30:00 40.1 40.0-75.0 (%) Final Lymphs % 04/13/2024 04:30:00 40.6 18.0-42.0 (%) Final Monos 04/13/2024 04:30:00 10.8 1.0-11.0 (%) Final Eosinophils 04/13/2024 04:30:00 6.7 Above high normal 0.0-6.0 (%) Final Basos 04/13/2024 04:30:00 1.0 0.0-2.0 (%) Final Immature Granulocyte, Percent 04/13/2024 04:30:00 0.8 0.0-2.0 (%) Final Absolute Segs 04/13/2024 04:30:00 2.45 1.80-7.70 (K/uL) Final Lymphs, absolute 04/13/2024 04:30:00 2.48 1.00-4.80 (K/ul) Final Monos, Abs 04/13/2024 04:30:00 0.66 0.00-1.10 (K/uL) Final Eos, Abs 04/13/2024 04:30:00 0.41 0.00-0.70 (K/uL) Final Basos, Abs 04/13/2024 04:30:00 0.06 0.00-0.20 (K/uL) Final Immature Granulocytes, Number 04/13/2024 04:30:00 0.05 0.00-0.20 (K/uL) Final Performing Location LABORATORY [facility] - [address] [place] [address]
--- OUTSIDE RECORDS SUMMARY | 2024-07-14 04:48 | External Medical Summary ---
Author Name Unknown Address Unknown Organization K1F:LABORATORY [facility] - [address] [address] Laboratory Report Ordering Provider Test Date Status MIN,MAW 04/13/2024 04:30:00 Final Observation Date Value Abnormality Reference (Units ) Status WBC, Total 04/13/2024 04:30:00 6.11 4.00-10.80 (K/uL) Final RBC 04/13/2024 04:30:00 4.44 4.50-5.25 (M/uL) Final Hemoglobin 04/13/2024 04:30:00 11.2 Below low normal 14.0-16.8 (g/dL) Final HCT 04/13/2024 04:30:00 36.0 Below low normal 40.0-48.4 (%) Final MCV 04/13/2024 04:30:00 81.1 82.0-99.5 (fL) Final MCH 04/13/2024 04:30:00 25.2 27.0-34.0 (pg) Final MCHC 04/13/2024 04:30:00 31.1 32.0-36.0 (g/dL) Final RDW 04/13/2024 04:30:00 16.5 11.5-15.5 (%) Final Platelets 04/13/2024 04:30:00 222 140-400 (K/uL) Final MPV 04/13/2024 04:30:00 9.3 6.6-11.1 (fL) Final Nucleated erythrocytes/100 leukocytes [Ratio] in Blood by Automated count 04/13/2024 04:30:00 0 <=0 (/100 WBCs) Final Performing Location LABORATORY [facility] - [address] [address]
--- OUTSIDE RECORDS SUMMARY | 2024-07-14 04:48 | External Medical Summary ---
Author Name Unknown Address Unknown Organization K1F:LABORATORY [facility] - [address] [address] Laboratory Report Ordering Provider Test Date Status TAWNYA ALONSOW 04/13/2024 04:30:00 Final Observation Date Value Abnormality Reference (Units ) Status BUN 04/13/2024 04:30:00 13 6-20 (mg/dL) Final Creatinine 04/13/2024 04:30:00 1.0 0.6-1.2 (mg/dL) Final Glomerular filtration rate/1.73 sq M.predicted [Volume Rate/Area] in Serum, Plasma or Blood by Creatinine-based formula (CKD-EPI) 04/13/2024 04:30:00 >90 >=60 (mL/min) Final eGFR is calculated based on the CKD-EPI 2020 equation Sodium 04/13/2024 04:30:00 136 135-146 (m mol/L) Final Potassium 04/13/2024 04:30:00 4.1 3.5-5.1 (m mol/L) Final Cl 04/13/2024 04:30:00 98 98-107 (mm ol/L) Final CO2 04/13/2024 04:30:00 22 22-32 (mmo l/L) Final Anion gap 04/13/2024 04:30:00 16 Above high normal 7- 15 (mmol/L) Final Glucose 04/13/2024 04:30:00 176 Above high normal 70 -120 (mg/dL) Final Calcium 04/13/2024 04:30:00 9.7 8.4-10.2 ( mg/dL) Final Performing Location LABORATORY [facility] - [address] [facility] [place] [place] [address]
--- OUTSIDE RECORDS SUMMARY | 2024-07-14 04:48 | External Medical Summary ---
Author Name Unknown Address Unknown Organization K1F:LABORATORY [facility] - [address] [place] [address] Laboratory Report Ordering Provider Test Date Status MIN,MAW 04/12/2024 09:45:00 Final Observation Date Value Abnormality Reference (Units ) Status WBC, Total 04/12/2024 09:45:00 6.60 4.00-10.80 (K/uL) Final RBC 04/12/2024 09:45:00 4.58 4.50-5.25 (M/uL) Final Hemoglobin 04/12/2024 09:45:00 11.7 Below low normal 14.0-16.8 (g/dL) Final HCT 04/12/2024 09:45:00 37.5 Below low normal 40.0-48.4 (%) Final MCV 04/12/2024 09:45:00 81.9 82.0-99.5 (fL) Final MCH 04/12/2024 09:45:00 25.5 27.0-34.0 (pg) Final MCHC 04/12/2024 09:45:00 31.2 32.0-36.0 (g/dL) Final RDW 04/12/2024 09:45:00 16.6 11.5-15.5 (%) Final Platelets 04/12/2024 09:45:00 238 140-400 (K/uL) Final MPV 04/12/2024 09:45:00 9.3 6.6-11.1 (fL) Final Nucleated erythrocytes/100 leukocytes [Ratio] in Blood by Automated count 04/12/2024 09:45:00 0 <=0 (/100 WBCs) Final Performing Location LABORATORY [facility] - [address] [address]
--- OUTSIDE RECORDS SUMMARY | 2024-07-14 04:49 | External Medical Summary ---
Author Name Unknown Address Unknown Organization K1F:LABORATORY [facility] - [address] [address] Laboratory Report Ordering Provider Test Date Status PING SCHMITT 04/11/2024 03:45:00 Final Observation Date Value Abnormality Reference (Units ) Status Lipase 04/11/2024 03:45:00 30 13-60 (U/L ) Final Performing Location LABORATORY [facility] - [address] [address]
--- OUTSIDE RECORDS SUMMARY | 2024-07-14 04:49 | External Medical Summary ---
Author Name Unknown Address Unknown Organization K1F:LABORATORY [facility] - [facility] [address] [place] [address] Laboratory Report Ordering Provider Test Date Status LEEMADHU 04/10/2024 15:08:00 Final Observation Date Value Abnormality Reference (Units ) Status WBC, Total 04/10/2024 15:08:00 7.63 4.00-10.80 (K/uL) Final RBC 04/10/2024 15:08:00 4.26 4.50-5.25 (M/uL) Final Hemoglobin 04/10/2024 15:08:00 11.0 Below low normal 14.0-16.8 (g/dL) Final HCT 04/10/2024 15:08:00 34.9 Below low normal 40.0-48.4 (%) Final MCV 04/10/2024 15:08:00 81.9 82.0-99.5 (fL) Final MCH 04/10/2024 15:08:00 25.8 27.0-34.0 (pg) Final MCHC 04/10/2024 15:08:00 31.5 32.0-36.0 (g/dL) Final RDW 04/10/2024 15:08:00 16.6 11.5-15.5 (%) Final Platelets 04/10/2024 15:08:00 236 140-400 (K/uL) Final MPV 04/10/2024 15:08:00 9.2 6.6-11.1 (fL) Final Nucleated erythrocytes/100 leukocytes [Ratio] in Blood by Automated count 04/10/2024 15:08:00 0 <=0 (/100 WBCs) Final Performing Location LABORATORY [facility] - [address] [address]
--- OUTSIDE RECORDS SUMMARY | 2024-07-14 04:49 | External Medical Summary ---
Author Name Unknown Address Unknown Organization K1F:LABORATORY [facility] - [facility] [address] [place] [address] Laboratory Report Ordering Provider Test Date Status MADHU HOWARD 04/10/2024 19:06:56 Final Observation Date Value Abnormality Reference (Units ) Status RBC, Urine 04/10/2024 19:06:56 0-2 0-2 (/HPF) Final WBC, Urine 04/10/2024 19:06:56 0-2 0-2 (/HPF) Final Bacteria [#/area] in Urine sediment by Microscopy high power field 04/10/2024 19:06:56 0-25 0-25 (/HPF) Final Performing Location LABORATORY [facility] - [address] [address]
--- OUTSIDE RECORDS SUMMARY | 2024-07-14 04:49 | External Medical Summary ---
Author Name Unknown Address Unknown Organization K1F:LABORATORY [facility] - [address] [facility] [address] Laboratory Report Ordering Provider Test Date Status MADHU HOWARD 04/10/2024 19:06:56 Final Observation Date Value Abnormality Reference (Units ) Status Color of Urine by Auto 04/10/2024 19:06:56 Yellow Light Yellow, Yellow, Dark Yellow Final Clarity, Urine 04/10/2024 19:06:56 Clear Clear Final Glucose [Mass/volume] in Urine by Automated test strip 04/10/2024 19:06:56 250 Abnormal Negative (mg/dL) Final Bilirubin.total [Presence] in Urine by Automated test strip 04/10/2024 19:06:56 Negative Negative Final Ketones [Mass/volume] in Urine by Automated test strip 04/10/2024 19:06:56 Negative Negative (mg/dL) Final Specific gravity, Urine 04/10/2024 19:06:56 1.017 1.003-1.030 Final Hemoglobin [Presence] in Urine by Automated test strip 04/10/2024 19:06:56 Negative Negative Final pH, Urine 04/10/2024 19:06:56 7.0 5.0-7.5 (Units) Final Protein [Mass/volume] in Urine by Automated test strip 04/10/2024 19:06:56 30 Abnormal Negative (mg/dL) Final Urobilinogen [Mass/volume] in Urine by Automated test strip 04/10/2024 19:06:56 0.2 0.2, 1.0 (mg/dL) Final Nitrite [Presence] in Urine by Automated test strip 04/10/2024 19:06:56 Negative Negative Final Leukocyte esterase [Presence] in Urine by Automated test strip 04/10/2024 19:06:56 Negative Negative Final Performing Location LABORATORY [facility] - [address] [place] [address]
--- OUTSIDE RECORDS SUMMARY | 2024-07-14 04:49 | External Medical Summary ---
Author Name Unknown Address Unknown Organization K1F:LABORATORY [facility] - [address] [place] [address] Laboratory Report Ordering Provider Test Date Status PING SCHMITT 04/11/2024 03:45:00 Final Observation Date Value Abnormality Reference (Units ) Status BUN 04/11/2024 03:45:00 23 Above high normal 6-20 (mg/dL) Final Creatinine 04/11/2024 03:45:00 1.2 0.6-1.2 (mg/dL) Final Glomerular filtration rate/1.73 sq M.predicted [Volume Rate/Area] in Serum, Plasma or Blood by Creatinine-based formula (CKD-EPI) 04/11/2024 03:45:00 74 >=60 (mL/min) Final eGFR is calculated based on the CKD-EPI 2020 equation Sodium 04/11/2024 03:45:00 141 135-146 (m mol/L) Final Potassium 04/11/2024 03:45:00 4.2 3.5-5.1 (m mol/L) Final Cl 04/11/2024 03:45:00 104 98-107 (mm ol/L) Final CO2 04/11/2024 03:45:00 24 22-32 (mmo l/L) Final Anion gap 04/11/2024 03:45:00 13 7-15 (mmol /L) Final Glucose 04/11/2024 03:45:00 123 Above high normal 70 -120 (mg/dL) Final Calcium 04/11/2024 03:45:00 9.1 8.4-10.2 ( mg/dL) Final Performing Location LABORATORY [facility] - [address] [place] [address]
--- OUTSIDE RECORDS SUMMARY | 2024-07-14 04:49 | External Medical Summary ---
Author Name Unknown Address Unknown Organization : Laboratory Report Ordering Provider Test Date Status PING SCHMITT 04/10/2024 21:50:56 Final Observation Date Value Abnormality Reference (Units ) Status Glucose Point of Care 04/10/2024 21:50:56 147 Above high normal 70-120 (mg/dL) Final Performing Location
--- OUTSIDE RECORDS SUMMARY | 2024-07-14 04:49 | External Medical Summary | Summary of Care ---
Author Name Unknown Organization [facility] Address [address] [place] [address] Phone [phone] Care Team Providers Care Insulation Technician Name Role Phone Velasquez Valencia MD Primary Care Provider +1- [phone] Encounter Details Date Type Department Care Team (Late st Contact Info) Description 04/11/2024 Telephone [facility] [address] [place] [address] Velasquez Valencia MD [address] [place] [address] Allergies Active Allergy Reactions Criticality Noted Date Comments Cefaclor Unknown 07/26/2018 As child Empagliflozin Other (Please comment) 05/16/2021 DKA with hospitalization Nsaids High 04/19/2019 Gastric problems Other Reaction(s): gastroparesis, kidney problems, use with caution : hx esophagus damage documented as of this encounter (statuses as of 04/11/2024) Medications Medication Sig Dispensed Refills Start Date [...] 180 Tablet 1 01/08/2024 Suspended Additional Information Stephensb AkilahoStar 300 UNIT/ML Subcutaneous Solution Pen-injector (Insulin Glargine [...] as of this encounter (statuses as of 04/11/2024) Active Problems Problem Noted Date Diagnosed Date [...] as of this encounter (statuses as of 04/11/2024) Resolved Problems Problem Noted Date Diagnosed Date [...] as of this encounter (statuses as of 04/11/2024) Immunizations Name Administration Dates Next Due COVID-19 mRNA, LNP-s, No Pre serve, 2-Dose Series ([facility]) 10/21/2021,03/01/2021,02/07/2021 H1N1 2009 Influenza, IM 11/04/2009 Pneumococcal Conjugate Vacci ne, 20-valent ([id number]) 07/09/2023 Pneumococcal Polysaccharide PPV23 (Pneumovax) 11/03/2015,02/09/2006 Seasonal [...] encounter Miscellaneous Notes * Telephone Encounter - Luda Clark, DAMION - 04/11/2024 10:50 AM EDT APPROVAL 04/11/24 Rec APPROVAL for Inpatien Admission on 04/04/24. Sent to [facility] Placed in provider's mail bin on 03/11/24. documented in this encounter Plan of Treatment Upcoming Encounters Date Type Department Care Team (Late st Contact Info) Description 04/14/2024 11:20 AM EDT Office Visit [place] [address] [place] [phone] Velasquez Valencia MD [address], [place] [phone] 04/14/2024 6:10 PM EDT Pharmacy Pharmacy, [address] [address] [facility] [address], [place] [phone] 05/08/2024 11:40 AM EDT Office Visit [address] [phone] Velasquez Valencia MD [address], [place] [phone] Scheduled Procedures Name Priority Associated Diagnoses Date/Ti [...] 02/07/2021 DISCUSS TOBACCO CESSATION (REFER TO SMARTSET #8564) 10/16/2023 10/16/2022 Zoster Vaccines (1 of 2) [...] (2 - Td or Tdap) 05/01/2028 05/01/2018 Lipid Panel 12/13/2028 12/13/2023, 12/17, 09/01/2021, Additional history exists Colonoscopy 02/21/2029 02/22/2024, 05/0 04/2024, 04/15/2023, Additional history exists Colorectal Cancer Screening 02/21/2029 Influenza Vaccine (FLU shot) Completed 07/09/2023, 10/16/2022, [...] this encounter Medical Devices Implanted Type Area Registered Nurse Nursery Device Identifier Shelf Expiration Date Model / Serial / Lot Suture Kenner Dbl Load 4.75mm - [id number] Implanted:Qty: 1 on 12/01/2019 by Judith Condon DO at OR [facility] Right: Shoulder [employer] 07/17/2021 AR-2324BCT -2 / / [id number] Suture Kenner Dbl Load 5.5mm - [id number] Implanted:Qty: 1 on 12/01/2019 by Judith Condon DO at OR [facility] Right: Shoulder [employer] 09/16/2021 AR-2323BCT -2 / / [id number] documented as of this encounter Advance Directives [...] Directives occurred with: Not Discussed Care Teams Insulation Technician Relationship Specialty Start Date End Date Velasquez Valencia MD [address] [place] [address] PCP - General Family Medicine 09/09/22 documented as of this encounter
--- OUTSIDE RECORDS SUMMARY | 2024-07-14 04:49 | External Medical Summary ---
Author Name Unknown Address Unknown Organization K1F:[facility] - [address] [address] Laboratory Report Ordering Provider Test Date Status MIN,MAW 04/12/2024 09:45:00 Final Observation Date Value Abnormality Reference (Units ) Status Magnesium 04/12/2024 09:45:00 1.6 1.5-2.6 (m g/dL) Final Performing Location [facility] - [address] [address]
--- OUTSIDE RECORDS SUMMARY | 2024-07-14 04:49 | External Medical Summary | Summary of Care ---
Author Name Unknown Organization [facility] Address [address] [place] [facility] [place] [place] [address] Phone [phone] Care Team Providers Care Veterinary Science Teacher Name Role Phone Velasquez Valencia MD Primary Care Provider +1- [phone] Encounter Details Date Type Department Care Team (Late st Contact Info) Description 04/11/2024 Telephone [facility] [address] [place] [address] Velasquez Valencia MD [address] [place] [address] Allergies Active Allergy Reactions Criticality [...] mRNA, LNP-s, No Pre serve, 2-Dose Series ([employer]) 10/21/2021,03/01/2021,02/07/2021 H1N1 2009 Influenza, IM 11/04/2009 Pneumococcal Conjugate Vacci ne, 20-valent ([id number]) 07/09/2023 Pneumococcal Polysaccharide PPV23 (Pneumovax) 11/03/2015,02/09/2006 Seasonal [...] for Inpatien Admission on 04/04/24. [facility] to [facility] documented in this encounter Plan of Treatment Upcoming Encounters Date Type Department Care Team (Late st Contact Info) Description 04/14/2024 11:20 AM EDT Office Visit [place] [address] [place] [phone] Velasquez Valencia MD [address] [place] [address] 04/14/2024 6:10 PM EDT Pharmacy Pharmacy, [place] [address] [place] [address] [facility] [address] [place] [address] 05/08/2024 11:40 AM EDT Office Visit [place] [address] [place] [phone] Velasquez Valencia MD [address] [place], [place] [phone] Scheduled Procedures Name Priority Associated Diagnoses Date/Ti [...] 02/07/2021 DISCUSS TOBACCO CESSATION (REFER TO SMARTSET #1651) 10/16/2023 10/16/2022 Zoster Vaccines (1 of 2) [...] this encounter Medical Devices Implanted Type Area Primer Press Operator Device Identifier Shelf Expiration Date Model / Serial / Lot Suture Dubberly Dbl Load 4.75mm - [id number] Implanted:Qty: 1 on 12/01/2019 by Judith Condon DO at OR [facility] Right: Shoulder [employer] 07/17/2021 AR-2324BCT -2 / / [id number] Suture [place]ber[place] Dbl Load 5.5mm - [id number] Implanted:Qty: 1 on 12/01/2019 by Judith Condon DO at OR [facility] Right: Shoulder [employer] 09/16/2021 AR-2323BCT -2 / / [id number] documented as of this encounter Advance Directives [...] Directives occurred with: Not Discussed Care Teams Veterinary Science Teacher Relationship Specialty Start Date End Date Velasquez Valencia MD [address] [place] [address] PCP - General Family Medicine 09/09/22 documented as of this encounter
--- OUTSIDE RECORDS SUMMARY | 2024-07-14 04:49 | External Medical Summary ---
Author Name Unknown Address Unknown Organization K1F:[facility] - [address] [address] Laboratory Report Ordering Provider Test Date Status PING SCHMITT 04/11/2024 03:45:00 Final Observation Date Value Abnormality Reference (Units ) Status Magnesium 04/11/2024 03:45:00 1.8 1.5-2.6 (m g/dL) Final Performing Location [facility] - [address] [address]
--- OUTSIDE RECORDS SUMMARY | 2024-07-14 04:49 | External Medical Summary ---
Author Name Unknown Address Unknown Organization K01:[facility] - [address] [place] [address] Laboratory Report Ordering Provider Test Date Status PING SCHMITT 04/11/2024 03:45:00 Final Observation Date Value Abnormality Reference (Units ) Status Triglyceride 04/11/2024 03:45:00 311 Above high normal <=174 (mg/dL) Final Triglyceride Reference Range s (mg/dL):
<150 Acceptable
150-174 Borderline high
175-499 High
>=500 Very high Cholesterol 04/11/2024 03:45:00 131 <200 (mg /dL) Final Total Cholesterol Reference Ranges (mg/dL):
<200 Desirable
200-239 Borderline high
>=240 High HDL 04/11/2024 03:45:00 32 Below low normal >39 (mg/dL) Final HDL Cholesterol Reference Ra nges (mg/dL):
>=60 High (Desirable)
<50 Low (Undesirable) For Females
<40 Low (Undesirable) For Males NON-HDL CHOLESTEROL 04/11/2024 03:45:00 99 <=159 (mg/dL) Final Non-HDL Cholesterol Referenc e Range (mg/dL):
<100 Target level for high risk ASCVD patient
<130 Optimal for general population
130-159 Near optimal for general population
160-189 Borderline High
190-219 High
>=220 Very High Performing Location [facility] - [address] [place] [address]
--- OUTSIDE RECORDS SUMMARY | 2024-07-14 04:49 | External Medical Summary | Summary of Care ---
Author Name Unknown Organization [facility] Address [address] [facility] [place] [address] Phone [phone] Care Team Providers Care Application Release Manager Name Role Phone Velasquez Valencia MD Primary Care Provider +1- [phone] Encounter Details Date Type Department Care Team (Late st Contact Info) Description 04/11/2024 Population Health External Data Unspecified Department Allergies [...] Tablet 1 01/08/2024 Suspended Additional Information Timmy Resendez 300 UNIT/ML Subcutaneous Solution Pen-injector [...] hemoglobin A1c goal of less than 7.0% ([facility]) Take 1 Tablet by mouth in the [...] IM 11/04/2009 Pneumococcal Conjugate Vacci ne, 20-valent ([id number]) 07/09/2023 Pneumococcal Polysaccharide PPV23 (Pneumovax) 11/03/2015,02/09/2006 Seasonal [...] 04/14/2024 11:20 AM EDT Office Visit Family Practice[address] [place] [phone] [facility]quez [facility] [address] [facility] [address] 04/14/2024 6:10 PM EDT Pharmacy Pharmacy, [address] [place] [address] [facility] [address] [place] [address] 05/08/2024 11:40 AM EDT Office Visit [facility] [place] [address] [facility] [phone] Velasquez Valencia MD [address] [place] [facility] [place] [address] Scheduled Procedures Name Priority Associated Diagnoses Date/Ti [...] 09/01/2021, Additional history exists Colonoscopy 02/21/2029 02/22/2024, 0504/2024, 04/15/2023, Additional history [...] this encounter Medical Devices Implanted Type Area Medication Care Manager Device Identifier Shelf Expiration Date Model / Serial / Lot Suture B[place] Dbl Load 4.75mm - [id number] Implanted:Qty: 1 on 12/01/2019 by Judith Condon DO at OR [facility] Right: Shoulder [employer] 07/17/2021 AR-2324BCT -2 / / [id number] Suture Bixby Dbl Load 5.5mm - [id number] Implanted:Qty: 1 on 12/01/2019 by Judith Condon DO at OR [facility] Right: Shoulder [employer] 09/16/2021 AR-2323BCT -2 / / [id number] documented as of this encounter Advance Directives [...] Directives occurred with: Not Discussed Care Teams Application Release Manager Relationship Specialty Start Date End Date Velasquez Valencia MD [address] [place] [address] PCP - General Family Medicine 09/09/22 documented as of this encounter
--- OUTSIDE RECORDS SUMMARY | 2024-07-14 04:49 | External Medical Summary ---
Author Name Unknown Address Unknown Organization K1F:[facility] - [address] [place] [address] [address] [address] Laboratory Report Ordering Provider Test Date Status PING SCHMITT 04/11/2024 03:45:00 Final Observation Date Value Abnormality Reference (Units ) Status WBC, Total 04/11/2024 03:45:00 6.97 4.00-10.80 (K/uL) Final RBC 04/11/2024 03:45:00 3.94 4.50-5.25 (M/uL) Final Hemoglobin 04/11/2024 03:45:00 9.9 Below low normal 14.0-16.8 (g/dL) Final HCT 04/11/2024 03:45:00 32.7 Below low normal 40.0-48.4 (%) Final MCV 04/11/2024 03:45:00 83.0 82.0-99.5 (fL) Final MCH 04/11/2024 03:45:00 25.1 27.0-34.0 (pg) Final MCHC 04/11/2024 03:45:00 30.3 32.0-36.0 (g/dL) Final RDW 04/11/2024 03:45:00 16.7 11.5-15.5 (%) Final Platelets 04/11/2024 03:45:00 218 140-400 (K/uL) Final MPV 04/11/2024 03:45:00 9.5 6.6-11.1 (fL) Final Nucleated erythrocytes/100 leukocytes [Ratio] in Blood by Automated count 04/11/2024 03:45:00 0 <=0 (/100 WBCs) Final Performing Location [facility] - [address] [address]
--- OUTSIDE RECORDS SUMMARY | 2024-07-14 04:49 | External Medical Summary ---
Author Name Unknown Address Unknown Organization K01:[facility] - [address] [address] Laboratory Report Ordering Provider Test Date Status PING SCHMITT 04/11/2024 03:45:00 Final Observation Date Value Abnormality Reference (Units ) Status LDL, (direct) 04/11/2024 03:45:00 60 <=129 (mg/dL) Final LDL Cholesterol Reference Ra nges (mg/dL):
<70 Target level for high risk ASCVD patient
<100 Optimal for general population
100-129 Near optimal for general population
130-159 Borderline high
160-189 High
>=190 Very high Performing Location [facility] - [address] [address]
--- OUTSIDE RECORDS SUMMARY | 2024-07-14 04:49 | External Medical Summary ---
Author Name Unknown Address Unknown Organization K01:[facility]ATORY [facility] - [address] [place] [address] Laboratory Report Ordering Provider Test Date Status MINMAW 04/11/2024 03:45:00 Final Observation Date Value Abnormality Reference (Units ) Status Lipase 04/11/2024 03:45:00 28 13-60 (U/L ) Final Performing Location [facility] [address] [facility] [place] [address]
--- OUTSIDE RECORDS SUMMARY | 2024-07-14 04:50 | External Medical Summary | Summary of Care ---
Author Name Unknown Organization [facility] Address [address] [facility] [place] [address] Phone [phone] Care Team Providers Care District Manager In Training Name Role Phone Velasquez Valencia MD Primary Care Provider +1- [phone] Reason for Visit * Reason Onset Date Comments Fax 03/27/2024 Encounter Details Date Type Department Care Team (Late st Contact Info) Description 03/27/2024 Telephone [facility] [address] [place] [address] Velasquez Valencia MD [address] [place] [address] Fax Allergies Active Allergy Reactions Criticality Noted Date Comments Cefaclor Unknown 07/26/2018 As child Empagliflozin Other (Please comment) 05/16/2021 DKA with hospitalization Nsaids High 04/19/2019 Gastric problems Other Reaction(s): gastroparesis, kidney problems, use with caution : hx esophagus damage documented as of this encounter (statuses as of 03/27/2024) Medications Medication Sig Dispensed Refills Start Date [...] MEALS ) 270 Tablet 1 08/03/2023 Active Losartan Potassium 100 MG Oral Tablet [...] than 7.0% ([facility]) Inject 40 units twice daily- this replaces lantus 54 mL 4 01/19/2024 Active BD Pen Needle Short U/F 31G X 8 MM (Insulin Pen Needle)Indications: Type 2 diabetes mellitus with hemoglobin A1c goal of less than 7.0% ([facility]) Use to inject insulin 5 times daily 500 Each 3 01/19/2024 Active Insulin Aspart FlexPen 100 UNIT/ML Subcutaneous Solution Pen-injectorIndicat ions:Type 2 diabetes mellitus with hemoglobin A1c goal of less than 7.0% ([facility]) Inject 32 units with breakfast 22 units with lunch and 22 units with supper plus CF of 1:12 over 150. Max daily dose of 115 units 120 mL 4 02/16/2024 Active Pioglitazone HCl 45 MG Oral Tablet (Actos)Indications: Type 2 diabetes mellitus with hemoglobin A1c goal of less than 7.0% ([facility]) Take 1 Tablet by mouth in [...] for Pain, Severe. 40 Tablet 02/22/2024 Active Clindamycin HCl 300 MG Oral Capsule Take 1 Capsule by mouth in the morning and 1 Capsule at noon and 1 Capsule in the evening and 1 Capsule before bedtime. 03/02/2024 Active hydroCHLOROthiazide 25 MG Oral Tablet (Hydrodiuril) Take 1 Tablet by mouth in the morning. 09/22/2023 Active Cyclobenzaprine HCl 10 MG Oral Tablet (Flexeril)Indicatio ns:Lumbar disc herniation TAKE 1 TABLET BY MOUTH AT BEDTIME ONLY NEEDED 30 Tablet 03/22/2024 Active Movantik 25 MG Oral Tablet (Naloxegol Oxalate) take 1 tablet by mouth in the morning 30 Tablet 03/27/2024 Active documented as of this encounter (statuses as of 03/27/2024) Active Problems Problem Noted Date Diagnosed Date S/P hardware removal 03/03/2024 Ankle wound, left, initial encounter 03/03/2024 Cellulitis of left lower extremity 03/03/2024 History of diabetic ulcer of foot 12/12/2023 [...] as of this encounter (statuses as of 03/27/2024) Resolved Problems Problem Noted Date Diagnosed Date Resolved Date Acute pancreatitis 12/12/2023 Thrush 12/12/2023 01/14/2024 Sepsis 10/28/2023 01/14/2024 Positive [...] as of this encounter (statuses as of 03/27/2024) Immunizations Name Administration Dates Next Due COVID-19 mRNA, LNP-s, No Pre serve, 2-Dose Series ([employer]) 10/21/2021,03/01/2021,02/07/2021 H1N1 2009 Influenza, IM 11/04/2009 Pneumococcal Conjugate Vacci ne, 20-valent ([id number]) 07/09/2023 Pneumococcal Polysaccharide PPV23 (Pneumovax) 11/03/2015,02/09/2006 Seasonal [...] money to get more. Never true 01/14/2024 Sex and Gender Information Value Date Recorded [...] (15 years old or older) No 03/03/20 24 Cognitive Status Response Date of Assessm ent Because of a physical, menta l, or emotional condition, do you have serious difficulty concentrating, remembering, or making decisions? (5 years old or older) No 03/03/2024 documented as of this encounter Miscellaneous Notes * Telephone Encounter - Madeleine Alicea RPh - 03/27/2024 1:14 PM EDT Faxed via [employer] Thanks, Madeleine Alicea PharmD Clinical Pharmacist [facility] [phone] 03/27/2024 1:14 PM * Telephone Encounter - Lenka Nicholson PHARM Tech - 03/27/2024 1:09 PM EDT [facility] calling to request a medication list as he is currently admitted there. Please fax to [phone] . Thank you, Lenka Nicholson, Certified Surgical Assistant [facility] 03/27/2024,1:11 PM documented in this encounter Plan of Treatment Upcoming Encounters Date Type Department Care Team (Late st Contact Info) Description 03/31/2024 6:10 PM EDT [facility] [place] [address] [facility] [address] [facility] [address] [facility] [address] 05/08/2024 11:40 AM EDT Office Visit [facility], [place] [address] [facility] [phone] Velasquez Valencia [facility] [address] [facility] [address] Scheduled Procedures Name Priority Associated Diagnoses Date/Ti [...] 02/07/2021 DISCUSS TOBACCO CESSATION (REFER TO SMARTSET #9411) 10/16/2023 10/16/2022 Zoster Vaccines (1 of 2) 2023 Diabetic Foot Exam 07/09/2024 07/09/2023, 0 03/07/2021, 11/27/2019, Additional history exists HbA1c 07/16/2024 01/14/2024, 11/19, 10/27/2023, Additional history exists Diabetic Eye Exam 07/28/2024 07/28/2023, , 07/22/2023, Additional history exists Albumin/Creatinine Ratio 01/13/2025 024, 01/05/2023, 09/01/2021, Additional history exists Depression Screening 01/13/2025 01/14/2024 O2 ASSESSMENT COMPLETED IN PAST YEAR FOR COPD 02/21/2025 02/22/2024 GFR 03/06/2025 03/06/2024, 02/15, 03/04/2024, Additional history exists DTaP,Tdap,and Td Vaccines (2 [...] encounter Medical Devices Implanted Type Area Auto Damage Adjuster Device Identifier Shelf Expiration Date Model / Serial / Lot Suture [place] Dbl Load 4.75mm - [id number] Implanted:Qty: 1 on 12/01/2019 by Judith Condon DO at OR [facility] Right: Shoulder [employer] 07/17/2021 AR-2324BCT -2 / / [id number] Suture [place] Dbl Load 5.5mm - [id number] Implanted:Qty: 1 on 12/01/2019 by Judith Condon DO at OR [facility] Right: Shoulder [employer] 09/16/2021 AR-2323BCT -2 / / [id number] documented as of this encounter Advance Directives * Full Code (Latest Code Status on File) Date Activated Date Inactivated Comments 03/03/2024 5:56 [...] of Advance Directives occurred with: Not Discussed * Full Code Date Activated Date Inactivated Comments 03/02/2021 10:51 PM 03/04/2021 9:45 PM This order reflects the patients wishes and were consensually agreed upon. Question Answer Comments Discussion of Advance Directives occurred with: Patient Does the patient have a Living Will? No Does the patient have Health Care Power of Attor niles? No Care Teams District Manager In Training Relationship Specialty Start Date End Date Velasquez Valencia MD [address] [place] [address] PCP - General Family Medicine 09/09/22 documented as of this encounter
--- OUTSIDE RECORDS SUMMARY | 2024-07-14 04:50 | External Medical Summary | Summary of Care ---
Author Name Unknown Organization [facility] Address [address] , [place] Care Team Providers Care Emissions Repair Technician Name Role Phone Velasquez Valencia MD Primary Care Provider +1- [phone] Reason for Visit * Reason Onset Date Comments Other 03/31/2024 Encounter Details Date Type Department Care Team (Late st Contact Info) Description 03/31/2024 Telephone Pharmacy, [facility] [address] [place] [phone] [facility] [address] [place] [address] Other Allergies Active Allergy Reactions Criticality Noted Date Comments Cefaclor Unknown 07/26/2018 As child Empagliflozin Other (Please comment) 05/16/2021 DKA with hospitalization Nsaids High 04/19/2019 Gastric problems Other Reaction(s): gastroparesis, kidney problems, use with caution : hx esophagus damage documented as of this encounter (statuses as of 03/31/2024) Medications Medication Sig Dispensed Refills Start Date [...] than 7.0% ([facility]) Inject 32 units with breakfast 22 units with lunch and 22 units with supper plus CF of 1:12 over 150. Max daily dose of 115 units 120 mL 4 02/16/2024 Active Pioglitazone HCl 45 MG Oral Tablet (Actos)Indications: Type 2 diabetes mellitus with hemoglobin A1c goal of less than 7.0% ([facility]) Take 1 Tablet by mouth in the [...] as of this encounter (statuses as of 03/31/2024) Active Problems Problem Noted Date Diagnosed Date [...] as of this encounter (statuses as of 03/31/2024) Resolved Problems Problem Noted Date Diagnosed Date [...] as of this encounter (statuses as of 03/31/2024) Immunizations Name Administration Dates Next Due COVID-19 mRNA, LNP-s, No Pre serve, 2-Dose Series (Pfizer) 10/21/2021,03/01/2021,02/07/2021 H1N1 2009 Influenza, IM 11/04/2009 Pneumococcal Conjugate Vacci ne, 20-valent ([id number]) 07/09/2023 Pneumococcal Polysaccharide PPV23 (Pneumovax) 11/03/2015,02/09/2006 Seasonal [...] Notes * Telephone Encounter - Gisel Butler RP - 03/31/2024 9:47 AM EDT Noted by [facility]- will place for assistants to call in 2 weeks to reschedule [facility] appt Gisel Butler, PharmD, BCACP Clinical Pharmacist Medication Therapy Disease Management 03/31/2024, 9:47 AM * Telephone Encounter - Alan Dixon CPhT - 03/31/2024 9:07 AM EDT Caller's name: Bry Cates call back number(OFFICE NUMBER FOR ): [phone] Reason for call: Pt returning call from [facility], states he is in [facility] for leg amputation. Thank you, Alan Dixon CPhT Mechanical Repair Worker [facility] 03/31/2024,9:08 AM documented in this encounter Plan of Treatment Upcoming Encounters Date Type Department Care Team (Late st Contact Info) Description 03/31/2024 6:10 PM EDT [address] [address] [facility] [address] [facility] [address] Type 2 diabetes mellitus with hemoglobin A1c goal of less than 7.0% ([facility])* 04/14/2024 6:10 PM EDT [address] [facility] [address] [place] [facility] [place] [address] 05/08/2024 11:40 AM EDT Office Visit [facility] [place] [address] [place] [phone] Velasquez Valencia MD [address] [place] [facility] [place] [address] Scheduled Procedures Name Priority Associated Diagnoses Date/Ti [...] this encounter Medical Devices Implanted Type Area Bridge Engineer Device Identifier Shelf Expiration Date Model / Serial / Lot Suture [place] Dbl Load 4.75mm - [id number] Implanted:Qty: 1 on 12/01/2019 by Judith Condon DO at OR [facility] Right: Shoulder [employer] 07/17/2021 AR-2324BCT -2 / / [id number] Suture [place] Dbl Load 5.5mm - [id number] Implanted:Qty: 1 on 12/01/2019 by Judith Condon DO at OR [facility] Right: Shoulder [employer] 09/16/2021 AR-2323BCT -2 / / [id number] documented as of this encounter Advance Directives [...] Power of Attor niles? No Care Teams Emissions Repair Technician Relationship Specialty Start Date End Date Velasquez Valencia MD [address] [place] [address] PCP - General Family Medicine 09/09/22 documented as of this encounter
--- OUTSIDE RECORDS SUMMARY | 2024-07-14 04:50 | External Medical Summary | Summary of Care ---
Author Name Unknown Organization [facility] Address [address] [facility] [address] Phone [phone] Care Team Providers Care Instructor Knitting Name Role Phone Tati Polo MD Primary Care Provider +1- [phone] Reason for Visit * Reason Comments eRx-Medication Refill Movantik Encounter Details Date Type Department Care Team (Late st Contact Info) Description 03/25/2024 Refill [facility] [address] [place] [address] Tati Polo MD [address] [place] [address] Allergies Active Allergy Reactions Criticality [...] MEALS ) 270 Tablet 1 3 Active Losartan Potassium 100 MG Oral [...] LOC[facility]IN [facility]) Inject 40 units twice daily- this replaces lantus 54 mL 4 4 Active BD Pen Needle Short U/F 31G X 8 MM (Insulin Pen Needle)Indication s:Type 2 diabetes mellitus with hemoglobin A1c goal of less than 7.0% ([facility]) Use to inject insulin 5 times daily 500 Each 3 4 Active Insulin Aspart FlexPen 100 UNIT/ML Subcutaneous Solution Pen-injectorIndic ations:Type 2 diabetes mellitus with hemoglobin A1c goal of less than 7.0% ([facility]) Inject 32 units with breakfast 22 units with lunch and 22 units with supper plus CF of 1:12 over 150. Max daily dose of 115 units 120 mL 4 4 Active Pioglitazone HCl 45 MG Oral Tablet (Actos)Indication s:Type 2 diabetes mellitus with hemoglobin A1c goal of less than 7.0% ([facility]) Take 1 Tablet by mouth in the morning. Please fill in about a month- patient is going to be using up his current supply of 15 mg and 30 mg tablets. 90 Tablet 4 4 Active traMADol HCl 50 MG Oral Tablet (Ultram)Indicatio ns:Abdominal pain, epigastric Take 1 Tablet by mouth every 6 hours as needed for Pain, Severe. 40 Tablet 4 Active Clindamycin HCl 300 MG Oral Capsule Take 1 Capsule by mouth in the morning and 1 Capsule at noon and 1 Capsule in the evening and 1 Capsule before bedtime. 4 Active hydroCHLOROthiazi de 25 MG Oral [...] mouth in the morning 30 Tablet 4 03/27/20 24 Discontinued documented as of this encounter [...] mRNA, LNP-s, No Pre serve, 2-Dose Series (Buccaneer) 10/21/2021,03/01/2021,02/07/2021 H1N1 2009 Influenza, IM 11/04/2009 Pneumococcal Conjugate Vacci ne, 20-valent ([id number]) 07/09/2023 Pneumococcal Polysaccharide PPV23 (Pneumovax) 11/03/2015,02/09/2006 Seasonal [...] Telephone Encounter - Tati Polo MD - 03/27/2024 8:53 AM EDTSigned Prescriptions: Disp Refills Movantik 25 MG Oral Tablet (Naloxegol Oxal*30 Tab*0 Sig: take 1 tablet by mouth in the morningAuthorizing Provider: TATI POLO * Telephone Encounter - Nora Lopez LPN - 03/26/2024 12:56 PM EDTPending Prescriptions: Disp Refills Movantik 25 MG Oral Tablet [Pharmacy Med N*30 Tab*0 Sig: take 1 tablet by mouth in the morning * Telephone Encounter - Nora Lopez LPN - 03/26/2024 12:53 PM EDT Last appt: 02/10/2024 (in office), Visit date not found (telemedicine) Next appt: 05/08/2024 Movantik last rx'd 02/22/24 #30/0. Is he supposed to be seeing GI? Pending Prescriptions: Disp Refills Movantik 25 MG Oral Tablet (Naloxegol Oxa*30 Tab*0 Sig: take 1 tablet by mouth in the morning * Telephone Encounter - Ashlee Teran - 03/25/2024 7:18 PM EDTPending Prescriptions: Disp Refills Movantik 25 MG Oral Tablet [Pharmacy Med N*30 Tab*0 Sig: take 1tablet by mouth in the morning documented in this encounter Plan of Treatment Upcoming Encounters Date Type Department Care Team (Late st Contact Info) Description 03/31/2024 6:10 PM EDT Pharmacy Pharmacy, [place] [address] [place] [address] [facility] [address] [place] [address] 05/08/2024 11:40 AM EDT Office Visit [place] [address] [place] [phone] Tati Polo MD [address] [place], [place] [phone] Scheduled Procedures Name Priority Associated Diagnoses Date/Ti [...] this encounter Medical Devices Implanted Type Area Head Transfer Clerk Device Identifier Shelf Expiration Date Model / Serial / Lot Suture [place] Dbl Load 4.75mm - [id number] Implanted:Qty: 1 on 12/01/2019 by Judith Condon DO at OR [facility] Right: Shoulder [employer] 07/17/2021 AR-2324BCT -2 / / [id number] Suture [place] Dbl Load 5.5mm - [id number] Implanted:Qty: 1 on 12/01/2019 by Judith Condon DO at OR [facility] Right: Shoulder [employer] 09/16/2021 AR-2323BCT -2 / / [id number] documented as of this encounter Advance Directives [...] Power of Attor niles? No Care Teams Instructor Knitting Relationship Specialty Start Date End Date Tati Polo MD [address] [facility] [address] PCP - General Family Medicine 09/09/22 documented as of this encounter
--- OUTSIDE RECORDS SUMMARY | 2024-07-14 04:50 | External Medical Summary ---
Author Name Unknown Address Unknown Organization K1F:[facility] - [address] [facility]. [place] [address] Laboratory Report Ordering Provider Test Date Status MADHU HOWARD 04/10/2024 15:08:00 Final Observation Date Value Abnormality Reference (Units ) Status SYNC LEUKOCYTES IN BLOOD BY AUTOMATED COUNT 04/10/2024 15:08:00 7.63 4.00-10.80 (K/uL) Final Segs 04/10/2024 15:08:00 61.2 40.0-75.0 (%) Final Lymphs % 04/10/2024 15:08:00 23.5 18.0-42.0 (%) Final Monos 04/10/2024 15:08:00 8.0 1.0-11.0 (%) Final Eosinophils 04/10/2024 15:08:00 5.4 0.0-6.0 (%) Final Basos 04/10/2024 15:08:00 1.2 0.0-2.0 (%) Final Immature Granulocyte, Percent 04/10/2024 15:08:00 0.7 0.0-2.0 (%) Final Absolute Segs 04/10/2024 15:08:00 4.68 1.80-7.70 (K/uL) Final Lymphs, absolute 04/10/2024 15:08:00 1.79 1.00-4.80 (K/ul) Final Monos, Abs 04/10/2024 15:08:00 0.61 0.00-1.10 (K/uL) Final Eos, Abs 04/10/2024 15:08:00 0.41 0.00-0.70 (K/uL) Final Basos, Abs 04/10/2024 15:08:00 0.09 0.00-0.20 (K/uL) Final Immature Granulocytes, Number 04/10/2024 15:08:00 0.05 0.00-0.20 (K/uL) Final Performing Location LABORATORY [facility] - [address] [place] [address]
--- OUTSIDE RECORDS SUMMARY | 2024-07-14 04:50 | External Medical Summary | Summary of Care ---
Author Name Unknown Organization [facility] Address [address] [facility] [place] [address] Phone [phone] Care Team Providers Care Title Examiner Name Role Phone Tati Polo MD Primary Care Provider +1- [phone] Reason for Visit * Reason Comments Medication Refill Encounter Details Date Type Department Care Team (Late st Contact Info) Description 04/03/2024 Refill [facility] [address] [place] [address] Tati Polo MD [address] [place] [address] Allergies Active Allergy Reactions Criticality Noted Date Comments Cefaclor Unknown 07/26/2018 As child Empagliflozin Other (Please comment) 05/16/2021 DKA with hospitalization Nsaids High 04/19/2019 Gastric problems Other Reaction(s): gastroparesis, kidney problems, use with caution : hx esophagus damage documented as of this encounter (statuses as of 04/05/2024) Medications Medication Sig Dispensed Refills Start Date [...] 06/18/2023 Active Gabapentin 100 MG Oral Capsule (Neurontin)Indica [...] and 1 Capsule before bedtime. 03/02/2024 Active hydroCHLOROthiazi de 25 MG Oral Tablet (Hydrodiuril) Take 1 Tablet by mouth in the morning. 09/22/2023 Active Cyclobenzaprine HCl 10 MG Oral Tablet (Flexeril)Indicat ions:Lumbar disc herniation TAKE 1 TABLET BY MOUTH AT BEDTIME ONLY NEEDED 30 Tablet 03/22/2024 Active Movantik 25 MG Oral Tablet (Naloxegol Oxalate) take 1 tablet by mouth in the morning 30 Tablet 03/27/2024 Active Metoclopramide HCl 10 MG Oral Tablet (Reglan) take 1 tablet by mouth three times a day ( 30 MINUTES before MEALS ) 270 Tablet 1 04/05/2024 Active Metoclopramide HCl 10 MG Oral Tablet (Reglan) take 1 tablet by mouth three times a day ( 30 MINUTES before MEALS ) 270 Tablet 1 08/03/2023 4 Discontinue d(Refill) documented as of this encounter (statuses as of 04/05/2024) Active Problems Problem Noted Date Diagnosed Date [...] as of this encounter (statuses as of 04/05/2024) Resolved Problems Problem Noted Date Diagnosed Date [...] as of this encounter (statuses as of 04/05/2024) Immunizations Name Administration Dates Next Due COVID-19 mRNA, LNP-s, No Pre serve, 2-Dose Series (Pfizer) 10/21/2021,03/01/2021,02/07/2021 H1N1 2009 Influenza, IM 11/04/2009 Pneumococcal Conjugate Vacci ne, 20-valent ([id number]) 07/09/2023 Pneumococcal Polysaccharide PPV23 (Pneumovax) 11/03/2015,02/09/2006 Seasonal [...] No 01/14/2024 Does the household have a [facility] of income? (Household - [...] Telephone Encounter - Tati Polo MD - 04/05/2024 9:32 AM EDTSigned Prescriptions: Disp Refills Metoclopramide HCl 10 MG Oral Tablet (Regl*270 Ta*1 Sig: take 1 tablet by mouth three times a day ( 30 MINUTES before MEALS )Authorizing Provider: TATI POLO * Telephone Encounter - Tati Polo MD - 04/05/2024 9:32 AM EDTSigned Prescriptions: Disp Refills Metoclopramide HCl 10 MG Oral Tablet (Regl*270 Ta*1 Sig: take 1tablet by mouth three times a day ( 30 MINUTES before MEALS )Authorizing Provider: TATI POLO * Telephone Encounter - Eliane Morrissey intermediate accountant - 04/04/2024 1:39 PM EDT Pharmacy is requesting a 90-day supply, pre-edited RXs as such. Please review and approve if appropriate. Pending Prescriptions: Disp Refills Metoclopramide HCl 10 MG Oral Tablet (Reg*270 Ta*1 Sig: take 1 tablet by mouth three times a day ( 30 MINUTES before MEALS ) Last Visit: 02/10/2024 (in office), Visit date not found (telemedicine) 05/08/2024 If no future appointments scheduled, and last appointment is greater than a year ago, please schedule patient for an appointment Last date the medication was ordered: 08/03/2023 Patient Phone Numbers Labs: Lab Results Component Value Date/Time CREAT 0.8 03/06/2024 05:41 AM CREAT 0.98 02/07/2024 12:00 AM CREAT 0.8 11/25/2019 08:53 AM POTASSIUM 4.1 03/06/2024 05:41 AM POTASSIUM 4.7 02/07/2024 12:00 AM POTASSIUM 4.5 11/25/2019 08:53 AM TSH 1.24 12/05/2021 12:12 PM TSH 0.698 06/30/2018 12:00 AM LDLCALC 48 12/13/2023 04:39 AM LDLCALC 108 01/08/2011 02:50 PM LDLDIRECT 133 (H) 04/12/2007 03:04 PM ALT 14 03/03/2024 03:24 PM ALT 37 11/25/2019 08:53 AM HGBA1C 10.2 (H) 01/14/2024 10:59 AM HGBA1C 9.2 (H) 09/16/2020 01:55 PM * Telephone Encounter - Ashlee Teran - 04/03/2024 5:25 AM EDTPending Prescriptions: Disp Refills Metoclopramide HCl 10 MG Oral Tablet (Regl*270 Ta*1 Sig: take 1tablet by mouth three times a day ( 30 MINUTES before MEALS ) documented in this encounter Plan of Treatment Upcoming Encounters Date Type Department Care Team (Late st Contact Info) Description 04/14/2024 6:10 PM EDT [address] [address] [facility] [address] [facility] [id number] 05/08/2024 11:40 AM EDT Office Visit [facility] [address] [place] [place] [address] Tati Polo MD [address] [facility] [address] Scheduled Procedures Name Priority Associated Diagnoses [...] 09/01/2021, Additional history exists Colonoscopy 02/21/2029 02/22/2024, 04/2024, 04/15/2023, Additional history [...] this encounter Medical Devices Implanted Type Area Healthcare Administrative Assistant Device Identifier Shelf Expiration Date Model / Serial / Lot Suture [place] Dbl Load 4.75mm - [id number] Implanted:Qty: 1 on 12/01/2019 by Judith Condon DO at OR [facility] Right: Shoulder [employer] 07/17/2021 AR-2324BCT -2 / / [id number] Suture [place] Dbl Load 5.5mm - [id number] Implanted:Qty: 1 on 12/01/2019 by Judith Condon DO at OR [facility] Right: Shoulder [employer] 09/16/2021 AR-2323BCT -2 / / [id number] documented as of this encounter Advance Directives [...] Power of Attor niles? No Care Teams Title Examiner Relationship Specialty Start Date End Date Tati Polo MD [address] [place] [address] PCP - General Family Medicine 09/09/22 documented as of this encounter
--- OUTSIDE RECORDS SUMMARY | 2024-07-14 04:50 | External Medical Summary | Summary of Care ---
Author Name Unknown Organization [facility] Address [address] [facility] [address] Phone [phone] Care Team Providers Care Hebrew Teacher Name Role Phone Velasquez Valencia MD Primary Care Provider +1- [phone] Reason for Visit * Reason Onset Date Comments Fax 03/27/2024 Encounter Details Date Type Department Care Team (Late st Contact Info) Description 03/27/2024 Telephone [facility] [address] [place] [address] Velasquez Valencia MD [address] [place] [address] Fax Allergies Active Allergy Reactions [...] A1c goal of less than 7.0% ([facility]) Inject 40 units twice daily- this replaces lantus 54 mL 4 01/19/2024 Active BD Pen Needle Short U/F 31G X 8 MM (Insulin Pen Needle)Indications: Type 2 diabetes mellitus with hemoglobin A1c goal of less than 7.0% ([facility]) Use to inject insulin 5 times daily 500 Each 3 01/19/2024 Active Insulin Aspart FlexPen 100 UNIT/ML Subcutaneous Solution Pen-injectorIndicat ions:Type 2 diabetes mellitus with hemoglobin A1c goal of less than 7.0% ([facility]) Inject 32 units with breakfast 22 units with lunch and 22 units with supper plus CF of 1:12 over 150. Max daily dose of 115 units 120 mL 4 02/16/2024 Active Pioglitazone HCl 45 MG Oral Tablet (Actos)Indications: Type 2 diabetes mellitus with hemoglobin A1c goal of less than 7.0% ([facility]) Take 1 Tablet by mouth [...] mRNA, LNP-s, No Pre serve, 2-Dose Series (Loved.la) 10/21/2021,03/01/2021,02/07/2021 H1N1 2009 Influenza, IM 11/04/2009 Pneumococcal Conjugate Vacci ne, 20-valent ([id number]) 07/09/2023 Pneumococcal Polysaccharide PPV23 (Pneumovax) 11/03/2015,02/09/2006 Seasonal [...] - 03/27/2024 1:14 PM EDT Faxed via [employer] Thanks, Madeleine Alicea PharmD Clinical Pharmacist [facility] [phone] 03/27/2024 1:14 PM * Telephone Encounter - Lenka Nicholson PHARM Tech - 03/27/2024 1:09 PM EDT [facility] calling to request a medication list as he is currently admitted there. Please fax to [phone] . Thank you, Lenka Nicholson, Party Bus Driver [facility] 03/27/2024,1:11 PM documented in this encounter Plan of Treatment Upcoming Encounters Date Type Department Care Team (Late st Contact Info) Description 03/31/2024 6:10 PM EDT [facility] [place] [address] [facility] [address] [facility] [address] [facility] [address] 05/08/2024 11:40 AM EDT Office Visit [facility], [place] [address] [facility] [phone] Velasquez Valencia MD [address] [facility] [address] Scheduled Procedures Name Priority Associated Diagnoses Date/Ti [...] 02/07/2021 DISCUSS TOBACCO CESSATION (REFER TO SMARTSET #6881) 10/16/2023 10/16/2022 Zoster Vaccines (1 of 2) [...] encounter Medical Devices Implanted Type Area Regulatory Manager Device Identifier Shelf Expiration Date Model / Serial / Lot Suture [place] Dbl Load 4.75mm - [id number] Implanted:Qty: 1 on 12/01/2019 by Judith Condon DO at OR [facility] Right: Shoulder [employer] 07/17/2021 AR-2324BCT -2 / / [id number] Suture [place] Dbl Load 5.5mm - [id number] Implanted:Qty: 1 on 12/01/2019 by Judith Condon DO at OR [facility] Right: Shoulder [employer] 09/16/2021 AR-2323BCT -2 / / [id number] documented as of this encounter Advance Directives [...] Power of Attor niles? No Care Teams Hebrew Teacher Relationship Specialty Start Date End Date Velasquez Valencia MD [address] [place] [address] PCP - General Family Medicine 09/09/22 documented as of this encounter
--- OUTSIDE RECORDS SUMMARY | 2024-07-14 04:50 | External Medical Summary ---
Author Name Unknown Address Unknown Organization K1F:[facility] - [address] [place] [address] Laboratory Report Ordering Provider Test Date Status CHIKIS FINNEY 04/10/2024 15:08:00 Final Observation Date Value Abnormality Reference (Units ) Status Magnesium 04/10/2024 15:08:00 1.6 1.5-2.6 (m g/dL) Final Performing Location [facility] - [address] [place] [address]
--- OUTSIDE RECORDS SUMMARY | 2024-07-14 04:50 | External Medical Summary | Summary of Care ---
Author Name Unknown Organization [facility] Address [address] [address] Phone [phone] Care Team Providers Care Blood Bank Laboratory Professional Name Role Phone Velasquez Valencia MD Primary Care Provider +1- [phone] Reason for Visit * Reason Comments Appointment Encounter Details Date Type Department Care Team (Late st Contact Info) Description 03/31/2024 6:10 PM EDT Pharmacy Pharmacy, [address] [address] [facility] [address] [place] [address] Type 2 diabetes mellitus with hemoglobin A1c goal of less than 7.0% ([facility])* Allergies Active Allergy Reactions Criticality Noted Date [...] hemoglobin A1c goal of less than 7.0% ([facility]) Inject 40 units twice daily- this replaces lantus 54 mL 4 01/19/2024 Active BD Pen Needle Short U/F 31G X 8 MM (Insulin Pen Needle)Indications: Type 2 diabetes mellitus with hemoglobin A1c goal of less than 7.0% ([facility]) Use to inject insulin 5 times daily 500 Each 3 01/19/2024 Active Insulin Aspart FlexPen 100 UNIT/ML Subcutaneous Solution Pen-injectorIndicat ions:Type 2 diabetes mellitus with hemoglobin A1c goal of less than 7.0% ([facility]) Inject 32 units with breakfast 22 units with lunch and 22 units with supper plus CF of 1:12 over 150. Max daily dose of 115 units 120 mL 4 02/16/2024 Active Pioglitazone HCl 45 MG Oral Tablet (Actos)Indications: Type 2 diabetes mellitus with hemoglobin A1c goal of less than 7.0% ([facility]) Take 1 Tablet by mouth [...] mRNA, LNP-s, No Pre serve, 2-Dose Series ([id number]) 10/21/2021,03/01/2021,02/07/2021 H1N1 2009 Influenza, IM 11/04/2009 Pneumococcal Conjugate Vacci ne, 20-valent ([id number]) 07/09/2023 Pneumococcal Polysaccharide PPV23 (Pneumovax) 11/03/2015,02/09/2006 Seasonal [...] No 03/03/2024 documented as of this encounter Progress Notes * Linette Flood, lithograph designer - 03/31/2024 8:13 AM EDT Patient Phone Numbers Left message on patients answering machine to schedule MTDM appointment for diabetes management. Cartela ABer message sent --no Clinic will follow up again in 4 week(s). [Attempt # 2] Thank you, Linette Flood Lever Operator [facility] 03/31/2024,8:13 AM documented in this encounter Plan of Treatment Upcoming Encounters Date Type Department Care Team (Late st Contact Info) Description 05/08/2024 11:40 AM EDT Office Visit [facility] [address] [place] [address] Velasquez Valencia MD [address] [place] [address] Scheduled Procedures Name Priority Associated Diagnoses [...] 02/07/2021 DISCUSS TOBACCO CESSATION (REFER TO SMARTSET #3351) 10/16/2023 10/16/2022 Zoster Vaccines (1 of 2) [...] this encounter Medical Devices Implanted Type Area Sea Shell Gatherer Device Identifier Shelf Expiration Date Model / Serial / Lot Suture [place] Dbl Load 4.75mm - [id number] Implanted:Qty: 1 on 12/01/2019 by Judith Condon, at OR [facility] Right: Shoulder [employer] 07/17/2021 AR-2324BCT -2 / / [id number] Suture [place] Dbl Load 5.5mm - [id number] Implanted:Qty: 1 on 12/01/2019 by Judith Condon, at OR [facility] Right: Shoulder [employer] 09/16/2021 AR-2323BCT -2 / / [id number] documented as of this encounter Visit Diagnoses Diagnosis Type 2 diabetes mellitus with hemoglobin A1c goal of less than 7.0% ([facility])- Primary documented in this encounter [...] Power of Attor niles? No Care Teams Blood Bank Laboratory Professional Relationship Specialty Start Date End Date Velasquez Valencia MD [address] [place] [address] PCP - General Family Medicine 09/09/22 documented as of this encounter
--- OUTSIDE RECORDS SUMMARY | 2024-07-14 04:50 | External Medical Summary ---
Author Name Unknown Address Unknown Organization K1F[facility] [address] [place] [place] [address] Laboratory Report Ordering Provider Test Date Status MADHU HOWARD 04/10/2024 15:08:00 Final Observation Date Value Abnormality Reference (Units ) Status BUN 04/10/2024 15:08:00 24 Above high normal 6-20 (mg/dL) Final Creatinine 04/10/2024 15:08:00 1.3 Above high normal 0.6-1.2 (mg/dL) Final Glomerular filtration rate/1.73 sq M.predicted [Volume Rate/Area] in Serum, Plasma or Blood by Creatinine-based formula (CKD-EPI) 04/10/2024 15:08:00 69 >=60 (mL/min) Final eGFR is calculated based on the CKD-EPI 2020 equation Sodium 04/10/2024 15:08:00 137 135-146 (m mol/L) Final Potassium 04/10/2024 15:08:00 4.9 3.5-5.1 (m mol/L) Final Cl 04/10/2024 15:08:00 99 98-107 (mm ol/L) Final CO2 04/10/2024 15:08:00 27 22-32 (mmo l/L) Final Anion gap 04/10/2024 15:08:00 11 7-15 (mmol /L) Final Glucose 04/10/2024 15:08:00 279 Above high normal 70 -120 (mg/dL) Final Albumin 04/10/2024 15:08:00 4.0 3.8-5.0 (g /dL) Final AST (Aspartate aminotransferase) 04/10/2024 15:08:00 18 10-50 (U/L) Fin al Alk Phos 04/10/2024 15:08:00 100 35-130 (U/ L) Final Bilirubin, Total 04/10/2024 15:08:00 0.3 <=1 .2 (mg/dL) Final Calcium 04/10/2024 15:08:00 9.4 8.4-10.2 ( mg/dL) Final Protein 04/10/2024 15:08:00 7.4 6.0-8.3 (g /dL) Final ALT (Alanine aminotransferase) 04/10/2024 15:08:00 30 10-50 (U/L) Ethan gillette Performing Location [facility] [address] [place] [address]
--- OUTSIDE RECORDS SUMMARY | 2024-07-14 04:50 | External Medical Summary ---
Author Name Unknown Address Unknown Organization K1F:[facility] - [address] [place] [address] Laboratory Report Ordering Provider Test Date Status MADHU HOWARD 04/10/2024 15:08:00 Final Observation Date Value Abnormality Reference (Units ) Status Lipase 04/10/2024 15:08:00 242 Above high normal 13 -60 (U/L) Final Performing Location [facility] - [address] [place] [address]
--- OUTSIDE RECORDS SUMMARY | 2024-07-14 04:50 | External Medical Summary | Summary of Care ---
Author Name Unknown Organization [facility] Address [address] [facility] [place] [address] Phone [phone] Care Team Providers Care Administrative Office Clerk Name Role Phone Velasquez Valencia MD Primary Care Provider +1- [phone] Encounter Details Date Type Department Care Team (Late st Contact Info) Description 03/29/2024 Population Health External Data Unspecified Department Allergies Active Allergy Reactions Criticality Noted Date Comments Cefaclor Unknown 07/26/2018 As child Empagliflozin Other (Please comment) 05/16/2021 DKA with hospitalization Nsaids High 04/19/2019 Gastric problems Other Reaction(s): gastroparesis, kidney problems, use with caution : hx esophagus damage documented as of this encounter (statuses as of 03/29/2024) Medications Medication Sig Dispensed Refills Start Date [...] DAY 180 Tablet 1 01/08/2024 Active Timmy Hitchcockar 300 UNIT/ML Subcutaneous Solution Pen-injector (Insulin Glargine (1 Unit Dial))Indications:T ype 2 diabetes mellitus with hemoglobin A1c goal of less than 7.0% ([facility]) Inject 40 units twice daily- this replaces lantus 54 mL 4 01/19/2024 Active BD Pen Needle Short U/F 31G X 8 MM (Insulin Pen Needle)Indications: Type 2 diabetes mellitus with hemoglobin A1c goal of less than 7.0% ([facility]) Use to inject insulin 5 times daily 500 Each 3 01/19/2024 Active Insulin Aspart FlexPen 100 UNIT/ML Subcutaneous Solution Pen-injectorIndicat ions:Type 2 diabetes mellitus with hemoglobin A1c goal of less than 7.0% ([facility]) Inject 32 units with breakfast 22 units with lunch and 22 units with supper plus CF of 1:12 over 150. Max daily dose of 115 units 120 mL 4 02/16/2024 Active Pioglitazone HCl 45 MG Oral Tablet (Actos)Indications: Type 2 diabetes mellitus with hemoglobin A1c goal of less than 7.0% ([facility]) Take 1 Tablet by mouth [...] as of this encounter (statuses as of 03/29/2024) Active Problems Problem Noted Date Diagnosed Date [...] as of this encounter (statuses as of 03/29/2024) Resolved Problems Problem Noted Date Diagnosed Date [...] as of this encounter (statuses as of 03/29/2024) Immunizations Name Administration Dates Next Due COVID-19 mRNA, LNP-s, No Pre serve, 2-Dose Series ([employer]) 10/21/2021,03/01/2021,02/07/2021 H1N1 2009 Influenza, IM 11/04/2009 Pneumococcal Conjugate Vacci ne, 20-valent ([id number]) 07/09/2023 Pneumococcal Polysaccharide PPV23 (Pneumovax) 11/03/2015,02/09/2006 Seasonal [...] No 03/03/2024 documented as of this encounter Plan of Treatment Upcoming Encounters Date Type Department Care Team (Late st Contact Info) Description 03/31/2024 6:10 PM EDT Pharmacy Pharmacy, [place] [address] [place] [facility] [place] [address] [place] [address] [place] [facility] [place] [address] 05/08/2024 11:40 AM EDT Office Visit Family Practice, [place] [address] [place] [facility] [place] [id number] Velasquez Valencia MD [address] [place] [address] Scheduled Procedures Name Priority Associated Diagnoses Date/Ti [...] 02/07/2021 DISCUSS TOBACCO CESSATION (REFER TO SMARTSET #4051) 10/16/2023 10/16/2022 Zoster Vaccines (1 of 2) [...] this encounter Medical Devices Implanted Type Area Pediatric Pathologist Device Identifier Shelf Expiration Date Model / Serial / Lot Suture [place] Dbl Load 4.75mm - [id number] Implanted:Qty: 1 on 12/01/2019 by Judith Condon DO at OR [facility] Right: Shoulder [employer] 07/17/2021 AR-2324BCT -2 / / [id number] Suture [place] Dbl Load 5.5mm - [id number] Implanted:Qty: 1 on 12/01/2019 by Judith Condon DO at OR [facility] Right: Shoulder [employer] 09/16/2021 AR-2323BCT -2 / / [id number] documented as of this encounter Advance Directives [...] Power of Attor niles? No Care Teams Administrative Office Clerk Relationship Specialty Start Date End Date Velasquez Valencia MD [address] [place] [address] PCP - General Family Medicine 09/09/22 documented as of this encounter
--- OUTSIDE RECORDS SUMMARY | 2024-07-14 04:51 | External Medical Summary | Summary of Care ---
Author Name Unknown Organization [facility] Address [address] [facility] [place] [address] Phone [phone] Care Team Providers Care Outdoor Illuminating Engineer Name Role Phone Tati Polo MD Primary Care Provider +1- [phone] Reason for Visit * Reason Comments eRx-Medication Refill flexeril Encounter Details Date Type Department Care Team (Late st Contact Info) Description 03/18/2024 Refill [facility] [address] [place] [address] Tati Polo MD [address] [place] [address] Lumbar disc herniation Allergies Active Allergy Reactions Criticality Noted Date Comments Cefaclor Unknown 07/26/2018 As child Empagliflozin Other (Please comment) 05/16/2021 DKA with hospitalization Nsaids High 04/19/2019 Gastric problems Other Reaction(s): gastroparesis, kidney problems, use with caution : hx esophagus damage documented as of this encounter (statuses as of 03/22/2024) Medications Medication Sig Dispensed Refills Start Date [...] than 7.0% ([facility]) Inject 40 units twice daily- this replaces lantus 54 mL 4 4 Active BD Pen Needle Short U/F 31G X 8 MM (Insulin Pen Needle)Indication s:Type 2 diabetes mellitus with hemoglobin A1c goal of less than 7.0% ([facility]) Use to inject insulin 5 times daily 500 Each 3 4 Active Insulin Aspart FlexPen 100 UNIT/ML Subcutaneous Solution Pen-injectorIndic ations:Type 2 diabetes mellitus with hemoglobin A1c goal of less than 7.0% ([facility]) Inject 32 units with breakfast 22 units with lunch and 22 units with supper plus CF of 1:12 over 150. Max daily dose of 115 units 120 mL 4 4 Active Pioglitazone HCl 45 MG Oral Tablet (Actos)Indication s:Type 2 diabetes mellitus with hemoglobin A1c goal of less than 7.0% ([facility]) Take 1 Tablet by mouth in the morning. Please fill in about a month- patient is going to be using up his current supply of 15 mg and 30 mg tablets. 90 Tablet 4 4 Active Movantik 25 MG Oral Tablet (Naloxegol Oxalate) take 1 tablet by mouth in the morning 30 Tablet 4 Active traMADol HCl 50 MG Oral [...] BEDTIME ONLY NEEDED 30 Tablet 4 Active Cyclobenzaprine HCl 10 MG Oral Tablet (Flexeril)Indicat ions:Lumbar disc herniation TAKE 1 TABLET BY MOUTH AT BEDTIME ONLY NEEDED 30 Tablet 4 03/22/20 24 Discontinued documented as of this encounter (statuses as of 03/22/2024) Active Problems Problem Noted Date Diagnosed Date [...] as of this encounter (statuses as of 03/22/2024) Resolved Problems Problem Noted Date Diagnosed Date [...] as of this encounter (statuses as of 03/22/2024) Immunizations Name Administration Dates Next Due COVID-19 mRNA, LNP-s, No Pre serve, 2-Dose Series ([employer]) 10/21/2021,03/01/2021,02/07/2021 H1N1 2009 Influenza, IM 11/04/2009 Pneumococcal Conjugate Vacci ne, 20-valent ([id number]) 07/09/2023 Pneumococcal Polysaccharide PPV23 (Pneumovax) 11/03/2015,02/09/2006 Seasonal [...] Telephone Encounter - Tati Polo MD - 03/22/2024 4:29 PM EDTSigned Prescriptions: Disp Refills Cyclobenzaprine HCl 10 MG Oral Tablet (Fle*30 Tab*0 Sig: TAKE 1 TABLET BY MOUTH AT BEDTIME ONLY NEEDEDAuthorizing Provider: TATI POLO * Telephone Encounter - Nora Lopez LPN - 03/22/2024 10:37 AM EDTPending Prescriptions: Disp Refills Cyclobenzaprine HCl 10 MG Oral Tablet [Pha*30 Tab*0 Sig: TAKE 1 TABLET BY MOUTH AT BEDTIME ONLY NEEDED * Telephone Encounter - Nora Lopez LPN - 03/22/2024 10:35 AM EDT Last appt: 02/10/2024 (in office), Visit date not found (telemedicine) Next appt: 05/08/2024 Pending Prescriptions: Disp Refills Cyclobenzaprine HCl 10 MG Oral Tablet (Fl*30 Tab*0 Sig: TAKE 1 TABLET BY MOUTH AT BEDTIME ONLY NEEDED * Telephone Encounter - Interface, E-Rx Ss Inbound - 03/22/2024 6:08 AM EDT Pending Prescriptions: Disp Refills Cyclobenzaprine HCl 10 MG Oral Tablet [Pha*30 Tab*0 Sig: TAKE 1 TABLET BY MOUTH AT BEDTIME ONLY NEEDED * Telephone Encounter - Interface, E-Rx Ss Inbound - 03/20/2024 6:08 AM EDT Pending Prescriptions: Disp Refills Cyclobenzaprine HCl 10 MG Oral Tablet [Pha*30 Tab*0 Sig: TAKE 1 TABLET BY MOUTH AT BEDTIME ONLY NEEDED * Telephone Encounter - Ashlee Teran - 03/18/2024 1:56 PM EDTPending Prescriptions: Disp Refills Cyclobenzaprine HCl 10 MG Oral Tablet [Pha*30 Tab*0 Sig: TAKE 1TABLET BY MOUTH AT BEDTIME ONLY NEEDED documented in this encounter Plan of Treatment Upcoming Encounters Date Type Department Care Team (Late st Contact Info) Description 03/31/2024 6:10 PM EDT Pharmacy Pharmacy, [place] [address] [place] [address] [facility] [address] [place] [facility] [place] [address] 05/08/2024 11:40 AM EDT Office Visit Family [facility], [place] [address] [place] [id number] Tati Polo MD [address], [place] [id number] Scheduled Procedures Name Priority Associated Diagnoses Date/Ti [...] this encounter Medical Devices Implanted Type Area Mill House Supervisor Device Identifier Shelf Expiration Date Model / Serial / Lot Suture [place] Dbl Load 4.75mm - [id number] Implanted:Qty: 1 on 12/01/2019 by Judith Condon, DO at OR [facility] Right: Shoulder [employer] 07/17/2021 AR-2324BCT -2 / / [id number] Suture [place] Dbl Load 5.5mm - [id number] Implanted:Qty: 1 on 12/01/2019 by Judith Condon, at OR [facility] Right: Shoulder [employer] 09/16/2021 AR-2323BCT -2 / / [id number] documented as of this encounter Visit Diagnoses Diagnosis Lumbar disc herniation Displacement of lumbar intervertebral disc without myelopathy documented in this encounter Advance Directives * [...] Power of Attor niles? No Care Teams Outdoor Illuminating Engineer Relationship Specialty Start Date End Date Tati Polo MD [address] [facility] [address] [place] [address] PCP - General Family Medicine 09/09/22 documented as of this encounter
--- OUTSIDE RECORDS SUMMARY | 2024-07-14 04:51 | External Medical Summary | Summary of Care ---
Author Name Unknown Organization [facility] Address [address] [facility] [place] [address] Phone [phone] Care Team Providers Care Director Pharmacology Name Role Phone Velasquez Valencia MD Primary Care Provider +1- [phone] Encounter Details Date Type Department Care Team (Late st Contact Info) Description 12/08/2023 Telephone [facility] [address] [place] [address] Velasquez Valencia MD [address] [place] [address] Allergies Active Allergy Reactions Criticality Noted Date Comments Cefaclor Unknown 07/26/2018 As child Empagliflozin Other (Please comment) 05/16/2021 DKA with hospitalization Nsaids High 04/19/2019 Gastric problems Other Reaction(s): gastroparesis, kidney problems, use with caution : hx esophagus damage documented as of this encounter (statuses as of 03/08/2024) Medications Medication Sig Dispensed Refills Start Date [...] hemoglobin A1c goal of less than 7.0% ([facility]) Take 2 Tablets by mouth in the morning and 2 Tablets in the evening. 360 Tablet 3 06/18/2023 Active Gabapentin 100 MG Oral Capsule (Neurontin)Indicat [...] the morning. 90 Tablet 3 11/08/2023 Active documented as of this encounter (statuses as of 03/08/2024) Active Problems Problem Noted Date Diagnosed Date [...] as of this encounter (statuses as of 03/08/2024) Resolved Problems Problem Noted Date Diagnosed Date [...] as of this encounter (statuses as of 03/08/2024) Immunizations Name Administration Dates Next Due COVID-19 mRNA, LNP-s, No Pre serve, 2-Dose Series ([employer]) 10/21/2021,03/01/2021,02/07/2021 H1N1 2009 Influenza, IM 11/04/2009 Pneumococcal Conjugate Vacci ne, 20-valent ([id number]) 07/09/2023 Pneumococcal Polysaccharide PPV23 (Pneumovax) 11/03/2015,02/09/2006 Seasonal [...] you have serious difficulty h earing? No 10/27/2023 Are you blind or do you have serious difficulty seeing, even when wearing glasses? No 10/27/2023 Do you have serious difficul ty walking or climbing stairs? (5 years old or older) Yes 10/27/2023 Do you have difficulty dress ing or bathing? (5 years old or older) No 10/27/2023 Because of a physical, menta l, or emotional condition, do you have difficulty doing errands alone such as visiting a doctor s office or shopping? (15 years old or older) Yes 10/27/19 24 Cognitive Status Response Date of Assessm ent Because of a physical, menta l, or emotional condition, do you have serious difficulty concentrating, remembering, or making decisions? (5 years old or older) No 10/27/2023 documented as of this encounter Miscellaneous Notes * Telephone Encounter - Edie Harper LPN - 12/10/2023 2:04 PM EST Patient calling back. Went to the Er yesterday morning. X-ray showed he was backed up with stool. Gave him some magnesium citrate and 2 suppositories.Told him to take 8 doses of miralax with gatoradeat home this morning. He has been having diarrhea all day long. Feeling a little bit better. He already has an upcoming appt. That was scheduled before he went to the ER on 12/14/23 * Telephone Encounter - Sparkle Garcia LPN - 12/10/2023 1:58 PM EST Left generic message on answering machine asking patient to return our call. * Telephone Encounter - Velasquez Valencia MD - 12/08/2023 4:56 PM EST Not sure how much milk of magnesia If he is taking 1 tablespoon twice per day, he can increase to 2 tablespoons twice per day. If he is already on 2 tablespoons twice per day, continue the same until he has a result and then can stop milk of magnesia. For the miralax, I assume that he is doing 1 capful twice per day. I suggest that he continue this.Once he has a result, can decrease to once per day but would continue at once per day for a few months. If he feels that there is a formed bowel movement in the rectum that he is unable to pass, can try otc enema - but no more than once per day. If he has worsening/severe abd pain or vomiting - suggest ED eval. * Telephone Encounter - Sparkle Garcia LPN - 12/08/2023 3:59 PM EST Patient states that he is taking milk of mag 2 x a day for the last 2 days Stool softner- every day just once Movantik as prescribed Miralax 2 times a day for the last 2 days He has not taken his opiods for the last week and a half due to not getting it refilled When he eats he feels like he is going to vomit but has not and does have slight abd discomfort butnothing like what he has had before. * Telephone Encounter - Velasquez Valencia MD - 12/08/2023 1:50 PM EST Please find out what he has been using (all treatments are OTC, so I do not know exactly what he isalready using - please gets the meds and amounts). Need for ED would depend on symptoms. Severe abd pain? Nausea, vomiting? Is he still using opioids for pain relief? * Telephone Encounter - Yadi Gardner OSA - 12/08/2023 11:03 AM EST Pt has not had a BM in a whole week they want to know if pcp can prescribe pt something or does pt need to go to hospital [phone] documented in this encounter Plan of Treatment Upcoming Encounters Date Type Department Care Team (Late st Contact Info) Description 05/08/2024 11:40 AM EDT Office Visit [facility] [address] [place] [facility] [place] [address] Velasquez Valencia MD [address] [place] [facility] [place] [address] Scheduled Procedures Name Priority Associated Diagnoses [...] 09/01/2021, Additional history exists Colonoscopy 02/21/2029 02/22/2024, 050 04/2024, 04/15/2023, Additional [...] this encounter Medical Devices Implanted Type Area Slitter Creaser Slotter Operator Device Identifier Shelf Expiration Date Model / Serial / Lot Suture [place] Dbl Load 4.75mm - [id number] Implanted:Qty: 1 on 12/01/2019 by Judith Condon DO at OR [facility] Right: Shoulder [employer] 07/17/2021 AR-2324BCT -2 / / [id number] Suture [place] Dbl Load 5.5mm - [id number] Implanted:Qty: 1 on 12/01/2019 by Judith Condon DO at OR [facility] Right: Shoulder [employer] 09/16/2021 AR-2323BCT -2 / / [id number] documented as of this encounter Additional Health Concerns Infection Onset Date Last Indicated Resolved Time Respiratory Rule-Out 12/22/2023 12/22/2023 024 3:48 PM EST COVID-19 Rule-Out 12/22/2023 [...] Power of Attor niles? No Care Teams Director Pharmacology Relationship Specialty Start Date End Date Velasquez Valencia MD [address] [place] [address] PCP - General Family Medicine 09/09/22 documented as of this encounter
--- OUTSIDE RECORDS SUMMARY | 2024-07-14 04:51 | External Medical Summary | Summary of Care ---
Author Name Unknown Organization [facility] Address [address] [facility] [address] Phone [phone] Care Team Providers Care Subsurface Augmentee Elint Operator Name Role Phone Velasquez Valencia MD Primary Care Provider +1- [phone] Reason for Visit * Reason Onset Date Comments Appointment 12/24/2023 Encounter Details Date Type Department Care Team (Late st Contact Info) Description 12/24/2023 Telephone [facility] [address] [place] [address] Velasquez Valencia MD [address] [place] [address] Appointment Allergies Active Allergy Reactions Criticality Noted Date Comments Cefaclor Unknown 07/26/2018 As child Empagliflozin Other (Please comment) 05/16/2021 DKA with hospitalization Nsaids High 04/19/2019 Gastric problems Other Reaction(s): gastroparesis, kidney problems, use with caution : hx esophagus damage documented as of this encounter (statuses as of 03/24/2024) Medications Medication Sig Dispensed Refills Start Date End Date Status Albuterol Sulfate HFA 108 (90 Base) MCG/ACT Inhalation Aerosol SolutionIndicati ons:RSV bronchitis inhale 2 puffs by mouth and INTO THE LUNGS every 6 hours if needed for cough shortness of breath or WITHDRAWAL SYMPTOMS 54 g 3 10/29/19 23 Active Famotidine 20 MG Oral Tablet (Pepcid) Take 1 Tablet by mouth every night at bedtime. 90 Tablet 3 04/24/20 23 Active Dicyclomine HCl 10 MG Oral Capsule (Bentyl) take 1 capsule by mouth four times a day 360 Capsule 3 05/10/20 23 Active metFORMIN HCl 500 MG Oral Tablet (Glucophage)Yanet cations:Type 2 diabetes mellitus with hemoglobin A1c goal of less than 7.0% (HCC) Take 2 Tablets by mouth in the morning and 2 Tablets in the evening. 360 Tablet 3 06/18/20 23 Active Gabapentin 100 MG Oral Capsule (Neurontin)Indic ations:Neuropath y take 1 capsule by mouth every morning and 2 capsules by mouth at bedtime 270 Capsule 1 08/03/20 23 Active Additional Information Patient taking differently: 200 mg Oral BID (.AM/PM), take 2 capsule by mouth every morning and 2 capsules by mouth at bedtime, Reported on 03/03/2024 Metoclopramide HCl 10 MG Oral Tablet (Reglan) take 1 tablet by mouth three times a day ( 30 MINUTES before MEALS ) 270 Tablet 1 08/03/20 Active Losartan Potassium 100 MG Oral Tablet (Cozaar) Take 1 Tablet by mouth in the morning. 90 Tablet 3 10/07/20 23 Active Atorvastatin Calcium 20 MG Oral Tablet (Lipitor) Take 1 Tablet by mouth in the morning. 90 Tablet 3 10/07/20 23 Active Metamucil 0.52 GM Oral Capsule (Psyllium) Take 1 Capsule by mouth in the morning and 1 Capsule at noon and 1 Capsule before bedtime. 30 Capsule 11/05/19 24 Active Polyethylene Glycol 3350 17 GM Oral Packet (Miralax) Mix 1 Packet in 4 to 8 ounces of any beverage and drink by mouth in the morning. 14 Each 11/06/19 24 Active Torsemide 10 MG Oral Tablet (Demadex) Take 1 Tablet by mouth in the morning. 30 Tablet 11/06/19 24 Active Ondansetron HCl 4 MG Oral Tablet Take 1 Tablet by mouth every 8 hours as needed for Nausea. 20 Tablet 11/05/19 24 Active Spironolactone 25 MG Oral Tablet (Aldactone) Take 1 Tablet by mouth in the morning. 90 Tablet 3 11/08/19 24 Active Aspirin 81 MG Oral Tablet Delayed Release Take 1 Tablet by mouth in the morning. 90 Tablet 3 11/08/19 24 Active Pantoprazole Sodium 40 MG Oral Tablet Delayed Release (Protonix) take 1 tablet by mouth twice a day 180 Tablet 1 01/08/20 23 024 Discontinued Insulin Aspart FlexPen 100 UNIT/ML Subcutaneous Solution Pen-injectorIndi cations:Type 2 diabetes mellitus with hemoglobin A1c goal of less than 7.0% (HCC) inject 16 units subcutaneously three times a day with meals 45 mL 3 06/18/20 23 024 Discontinued(Re fill) Unifine Pentips 31G X 5 MM (Insulin Pen Needle)Indicatio ns:Type 2 diabetes mellitus with hemoglobin A1c goal of less than 7.0% (HCC) Use as directed 4 times daily 400 Each 3 06/18/20 23 024 Discontinued Sennosides-Docus ate Sodium 8.6-50 MG Oral Tablet [...] Tablet 3 11/08/19 24 024 Discontinued(Re fill) Fluticasone-Salm eterol 115-21 MCG/ACT Inhalation Aerosol (Advair HFA) Inhale 2 Puffs by mouth in the morning and 2 Puffs before bedtime. 12 g 12 11/17/19 24 024 Discontinued Insulin Glargine Solostar 100 UNIT/ML Subcutaneous Solution Pen-injectorIndi cations:Type 2 diabetes mellitus with hemoglobin A1c goal of less than 7.0% (HCC) Inject 40 units in the morning and 40 units in the evening 11/29/19 24 024 Discontinued documented as of this encounter (statuses as of 03/24/2024) Active Problems Problem Noted Date Diagnosed Date [...] as of this encounter (statuses as of 03/24/2024) Resolved Problems Problem Noted Date Diagnosed Date [...] as of this encounter (statuses as of 03/24/2024) Immunizations Name Administration Dates Next Due COVID-19 mRNA, LNP-s, No Pre serve, 2-Dose Series (Bjond) 10/21/2021,03/01/2021,02/07/2021 H1N1 2009 Influenza, IM 11/04/2009 Pneumococcal Conjugate Vacci ne, 20-valent ([id number]) 07/09/2023 Pneumococcal Polysaccharide PPV23 (Pneumovax) 11/03/2015,02/09/2006 Seasonal [...] encounter Miscellaneous Notes * Telephone Encounter - Charleen Hightower OSA - 12/24/2023 9:16 AM EST HIGH ED UTILIZER Reason for Call: went to ED yesterday, having bad stomach and back pain, vomiting Outcome: appt not scheduled for same day , no openings, sending TE Note: patients girlfriend calling, I asked if he would be willing to go to [place] as there wereopenings, she said no. SHe states he needs pain medicine, he is in pain. He is already scheduled for ED follow up next WednesdayDecember [address] Valencia documented in this encounter Plan of Treatment Upcoming Encounters Date Type Department Care Team (Late st Contact Info) Description 03/31/2024 6:10 PM EDT Pharmacy Pharmacy, [address] [address] [facility] [address] [place] [address] 05/08/2024 11:40 AM EDT Office Visit [place] [address] [place] [phone] Velasquez Valencia MD [address] [place] [address] Scheduled Procedures Name Priority Associated Diagnoses Date/Ti [...] 02/07/2021 DISCUSS TOBACCO CESSATION (REFER TO SMARTSET #8040) 10/16/2023 10/16/2022 Zoster Vaccines (1 of 2) [...] this encounter Medical Devices Implanted Type Area Executive Recruiter Device Identifier Shelf Expiration Date Model / Serial / Lot Suture [place] Dbl Load 4.75mm - [id number] Implanted:Qty: 1 on 12/01/2019 by Judith Condon DO at OR [facility] Right: Shoulder [employer] 07/17/2021 AR-2324BCT -2 / / [id number] Suture [place] Dbl Load 5.5mm - [id number] Implanted:Qty: 1 on 12/01/2019 by Judith Condon DO at OR [facility] Right: Shoulder [employer] 09/16/2021 AR-2323BCT -2 / / [id number] documented as of this encounter Advance Directives [...] Power of Attor niles? No Care Teams Subsurface Augmentee Elint Operator Relationship Specialty Start Date End Date Velasquez Valencia MD [address] [place] [address] PCP - General Family Medicine 09/09/22 documented as of this encounter
--- OUTSIDE RECORDS SUMMARY | 2024-07-14 04:51 | External Medical Summary | Summary of Care ---
Author Name Unknown Organization [facility] Address [address] [facility] [address] Phone [phone] Care Team Providers Care Mimeographer Name Role Phone Velasquez Valencia MD Primary Care Provider +1- [phone] Reason for Visit * Reason Comments Appointment Encounter Details Date Type Department Care Team (Late st Contact Info) Description 03/17/2024 6:10 PM EDT Pharmacy Pharmacy, [address] [address] [facility] [address] [place] [address] Type 2 diabetes mellitus with hemoglobin A1c goal of less than 7.0% ([facility])* Allergies Active Allergy Reactions Criticality Noted Date Comments Cefaclor Unknown 07/26/2018 As child Empagliflozin Other (Please comment) 05/16/2021 DKA with hospitalization Nsaids High 04/19/2019 Gastric problems Other Reaction(s): gastroparesis, kidney problems, use with caution : hx esophagus damage documented as of this encounter (statuses as of 03/17/2024) Medications Medication Sig Dispensed Refills Start Date [...] A1c goal of less than 7.0% ([facility]) Inject 40 units twice daily- this replaces lantus 54 mL 4 01/19/2024 Active BD Pen Needle Short U/F 31G X 8 MM (Insulin Pen Needle)Indications: Type 2 diabetes mellitus with hemoglobin A1c goal of less than 7.0% ([facility]) Use to inject insulin 5 times daily 500 Each 3 01/19/2024 Active Insulin Aspart FlexPen 100 UNIT/ML Subcutaneous Solution Pen-injectorIndicat ions:Type 2 diabetes mellitus with hemoglobin A1c goal of less than 7.0% ([facility]) Inject 32 units with breakfast 22 units with lunch and 22 units with supper plus CF of 1:12 over 150. Max daily dose of 115 units 120 mL 4 02/16/2024 Active Pioglitazone HCl 45 MG Oral Tablet (Actos)Indications: Type 2 diabetes mellitus with hemoglobin A1c goal of less than 7.0% ([facility]) Take 1 Tablet by mouth in the morning. Please fill in about a month- patient is going to be using up his current supply of 15 mg and 30 mg tablets. 90 Tablet 4 02/16/2024 Active Movantik 25 MG Oral Tablet (Naloxegol Oxalate) take 1 tablet by mouth in the morning 30 Tablet 02/22/2024 Active Cyclobenzaprine HCl 10 MG Oral Tablet (Flexeril)Indicatio ns:Lumbar disc herniation TAKE 1 TABLET BY MOUTH AT BEDTIME ONLY NEEDED 30 Tablet 02/21/2024 Active traMADol HCl 50 MG Oral Tablet [...] by mouth in the morning. 09/22/2023 Active documented as of this encounter (statuses as of 03/17/2024) Active Problems Problem Noted Date Diagnosed Date [...] as of this encounter (statuses as of 03/17/2024) Resolved Problems Problem Noted Date Diagnosed Date [...] as of this encounter (statuses as of 03/17/2024) Immunizations Name Administration Dates Next Due COVID-19 mRNA, LNP-s, No Pre serve, 2-Dose Series (Sush.io) 10/21/2021,03/01/2021,02/07/2021 H1N1 2009 Influenza, IM 11/04/2009 Pneumococcal Conjugate Vacci ne, 20-valent ([id number]) 07/09/2023 Pneumococcal Polysaccharide PPV23 (Pneumovax) 11/03/2015,02/09/2006 Seasonal [...] Notes * Charleen Willams PHARM Tech - 03/17/2024 8:54 AM EDT Patient Phone Numbers Spoke with pt, he is currently admitted. He was asking for a phone call in a couple of weeks [facility]. [facility] message sent --no Clinic will follow up again in 2 week(s). [Attempt # 1] Thank you, Charleen Willams Agent Producer [facility] 03/17/2024, 8:56 AM documented in this encounter Plan of Treatment Upcoming Encounters Date Type Department Care Team (Late st Contact Info) Description 03/31/2024 6:10 PM EDT Pharmacy Pharmacy, [address] [address] [facility] [address] [place] [address] 05/08/2024 11:40 AM EDT Office Visit [place] [address] [place] [address] Velasquez Valencia MD [address] [place] [address] Scheduled Procedures Name Priority Associated Diagnoses Date/Ti [...] Medical Devices Implanted Type Area Real Estate Salesperson Device Identifier Shelf Expiration Date Model / Serial / Lot Suture [place] Dbl Load 4.75mm - [id number] Implanted:Qty: 1 on 12/01/2019 by Judith Condon DO at OR [facility] Right: Shoulder [employer] 07/17/2021 AR-2324BCT -2 / / [id number] Suture [place] Dbl Load 5.5mm - [id number] Implanted:Qty: 1 on 12/01/2019 by Judith Condon DO at OR [facility] Right: Shoulder [employer] 09/16/2021 AR-2323BCT -2 / / [id number] documented as of this encounter Visit Diagnoses Diagnosis Type 2 diabetes mellitus with hemoglobin A1c goal of less than 7.0% ([facility])- Primary documented in this encounter Advance Directives [...] Power of Attor niles? No Care Teams Mimeographer Relationship Specialty Start Date End Date Velasquez Valencia MD [address] [place] [address] PCP - General Family Medicine 09/09/22 documented as of this encounter
--- OUTSIDE RECORDS SUMMARY | 2024-07-14 04:52 | External Medical Summary | Summary of Care ---
Author Name Unknown Organization [facility] Address [address] [place] [address] Phone [phone] Care Team Providers Care Fisheries Specialist Name Role Phone Velasquez Valencia MD Primary Care Provider +1- [phone] Reason for Visit * Reason Onset Date Comments Outpatient Testing 12/13/2023 Encounter Details Date Type Department Care Team (Late st Contact Info) Description 12/13/2023 Telephone Gastroenterology, [address] [address] Devora Gonzalez PA-C [facility] [place] [address] Outpatient Testing (/) Allergies Active Allergy [...] MEALS ) 270 Tablet 1 08/03/20 23 Active Losartan Potassium 100 MG Oral Tablet [...] morning. 90 Tablet 3 11/08/19 24 Active Diclofenac Sodium (VOLTAREN) 1 % gel Place 2 g topically on the skin 2 times a day. To affected area as directed. 100 g 5 01/12/20 20 024 Discontinued docusate sodium (RA COL-RITE) 100 MG Capsule Take 1 Cap by mouth 2 times a day as needed for Constipation. 60 Cap 3 05/07/20 20 024 Discontinued CPAP every night at bedtime. 024 Discontinued Pantoprazole Sodium 40 MG Oral Tablet Delayed Release (Protonix) take 1 tablet by mouth twice a day 180 Tablet 1 01/08/20 23 024 Discontinued oxygen IN GAS Use 2 L/min(Oxygen) as directed at bedtime. 024 Discontinued Insulin Aspart FlexPen 100 UNIT/ML [...] 400 Each 3 06/18/20 23 024 Discontinued Mounjaro 15 MG/0.5ML Subcutaneous Solution Pen-injector (Tirzepatide)Ind ications:Type 2 diabetes mellitus with hemoglobin A1c goal of less than 7.0% (HCC) Inject 15 mg under the skin once a week. Dose increase 6 mL 4 09/15/20 23 024 Discontinued oxyCODONE HCl 10 MG Oral Tablet (Roxicodone) Take 1 Tablet by mouth every 8 hours as needed for Pain, Moderate or Pain, Severe. 024 Discontinued Sennosides-Docus ate Sodium 8.6-50 MG [...] ([facility]) Inject 40 units in the morning and [...] IM 11/04/2009 Pneumococcal Conjugate Vacci ne, 20-valent ([id number]) 07/09/2023 Pneumococcal Polysaccharide PPV23 (Pneumovax) 11/03/2015,02/09/2006 Seasonal [...] and he is an in pt at [facility]. He may be having his foot amputated. [...] 12/13/2023 12:54 PM EST Pt admitted to [facility] for pancreatitis. Please arrange OP EUS in 6-8 weeks. Thanks Devora Gonzalez PA-C 12/13/2023 Department of Gastroenterology documented in this encounter Plan of Treatment Upcoming Encounters Date Type Department Care Team (Late st Contact Info) Description 05/08/2024 11:40 AM EDT Office Visit [facility] [address] [place] [address] Velasquez Valencia MD [address], [place] [id number] Scheduled Orders Name Type Priority Associated Diagnoses Orde r Schedule ENDOSCOPIC Medical Imaging Routine Acute pancreatitis, unspecified [...] 02/07/2021 DISCUSS TOBACCO CESSATION (REFER TO SMARTSET #0851) 10/16/2023 10/16/2022 Zoster Vaccines (1 of 2) [...] encounter Medical Devices Implanted Type Area Food And Beverage Service Manager Device Identifier Shelf Expiration Date Model / Serial / Lot Suture [place] Dbl Load 4.75mm - [id number] Implanted:Qty: 1 on 12/01/2019 by Judith Condon DO at OR [facility] Right: Shoulder [employer] 07/17/2021 AR-2324BCT -2 / / [id number] Suture [place] Dbl Load 5.5mm - [id number] Implanted:Qty: 1 on 12/01/2019 by Judith Condon DO at OR [facility] Right: Shoulder [employer] 09/16/2021 AR-2323BCT -2 / / [id number] documented as of this encounter Visit Diagnoses [...] Power of Attor niles? No Care Teams Fisheries Specialist Relationship Specialty Start Date End Date Velasquez Valencia MD [address] [place] [address] PCP - General Family Medicine 09/09/22 documented as of this encounter
--- OUTSIDE RECORDS SUMMARY | 2024-07-14 04:52 | External Medical Summary | Summary of Care ---
Author Name Unknown Organization [facility] Address [address] [place] [address] Phone [phone] Care Team Providers Care Tool Profiling Machine Set Up Operator Name Role Phone Velasquez Valencia MD Primary Care Provider +1- [phone] Reason for Visit * Reason Onset Date Comments Outpatient Testing 12/13/2023 Encounter Details Date Type Department Care Team (Late st Contact Info) Description 12/13/2023 Telephone Gastroenterology, [address] [address] Devora Gonzalez PA-C [facility] [place] [address] Outpatient Testing (/) Allergies Active Allergy Reactions Criticality Noted Date Comments Cefaclor Unknown 07/26/2018 As child Empagliflozin Other (Please comment) 05/16/2021 DKA with hospitalization Nsaids High 04/19/2019 Gastric problems Other Reaction(s): gastroparesis, kidney problems, use with caution : hx esophagus damage documented as of this encounter (statuses as of 03/06/2024) Medications Medication Sig Dispensed Refills Start Date [...] [facility]) Inject 40 units in the morning and 40 units in the evening 11/29/19 24 024 Discontinued documented as of this encounter (statuses as of 03/06/2024) Active Problems Problem Noted Date Diagnosed Date [...] as of this encounter (statuses as of 03/06/2024) Resolved Problems Problem Noted Date Diagnosed Date [...] as of this encounter (statuses as of 03/06/2024) Immunizations Name Administration Dates Next Due COVID-19 mRNA, LNP-s, No Pre serve, 2-Dose Series (Pfizer) 10/21/2021,03/01/2021,02/07/2021 H1N1 2009 Influenza, IM 11/04/2009 Pneumococcal Conjugate Vacci ne, 20-valent ([id number]) 07/09/2023 Pneumococcal Polysaccharide PPV23 (Pneumovax) 11/03/2015,02/09/2006 Seasonal [...] Miscellaneous Notes * Telephone Encounter - Devora Gonzalez PA-C [...] 12/13/2023 12:54 PM EST Pt admitted to [facility] for pancreatitis. Please arrange OP EUS in 6-8 weeks. Thanks Devora Gonzalez PA-C 12/13/2023 Department of Gastroenterology documented in this encounter Plan of Treatment Upcoming Encounters Date Type Department Care Team (Late st Contact Info) Description 05/08/2024 11:40 AM EDT Office Visit [facility] [address] [place] [facility] [place] [facility] [place] [address] [facility]asquez Valencia [facility] [address] [facility] [address] Scheduled Orders Name Type Priority Associated Diagnoses [...] this encounter Medical Devices Implanted Type Area Sales Support Representative Device Identifier Shelf Expiration Date Model / Serial / Lot Suture [place] Dbl Load 4.75mm - [id number] Implanted:Qty: 1 on 12/01/2019 by Judith Condon DO at OR [facility] Right: Shoulder [employer] 07/17/2021 AR-2324BCT -2 / / [id number] Suture [place] Dbl Load 5.5mm - [id number] Implanted:Qty: 1 on 12/01/2019 by Judith Condon DO at OR [facility] Right: Shoulder [employer] 09/16/2021 AR-2323BCT -2 / / [id number] documented as of this encounter Visit Diagnoses [...] Activated Date Inactivated Comments 03/03/2024 5:56 PM This order ref lects the patients [...] Power of Attor niles? No Care Teams Tool Profiling Machine Set Up Operator Relationship Specialty Start Date End Date Velasquez Valencia MD [address] [place] [address] PCP - General Family Medicine 09/09/22 documented as of this encounter
--- OUTSIDE RECORDS SUMMARY | 2024-07-14 04:52 | External Medical Summary | Summary of Care ---
Author Name Unknown Organization [facility] Address [address] [facility] [place] [address] Phone [phone] Care Team Providers Care Collections Representative Name Role Phone Velasquez Valencia MD Primary Care Provider +1- [phone] Encounter Details Date Type Department Care Team (Late st Contact Info) Description 03/08/2024 Population Health External Data Unspecified Department Allergies [...] of less than 7.0% ([facility]) Use to inject insulin 5 times daily 500 Each 3 01/19/2024 Active Insulin Aspart FlexPen 100 UNIT/ML Subcutaneous Solution Pen-injectorIndicat ions:Type 2 diabetes mellitus with hemoglobin A1c goal of less than 7.0% ([facility]) Inject 32 units with breakfast 22 units with lunch and 22 units with supper plus CF of 1:12 over 150. Max daily dose of 115 units 120 mL 4 02/16/2024 Active Pioglitazone HCl 45 MG Oral Tablet (Actos)Indications: Type 2 diabetes mellitus with hemoglobin A1c goal of less than 7.0% ([facility]) Take 1 Tablet by mouth [...] mRNA, LNP-s, No Pre serve, 2-Dose Series (Magnomatics) 10/21/2021,03/01/2021,02/07/2021 H1N1 2009 Influenza, IM 11/04/2009 Pneumococcal Conjugate Vacci ne, 20-valent ([id number]) 07/09/2023 Pneumococcal Polysaccharide PPV23 (Pneumovax) 11/03/2015,02/09/2006 Seasonal [...] Description 05/08/2024 11:40 AM EDT Office Visit [facility] [address] [place] [address] Velasquez Valencia MD [address] [facility] [place] [address] Scheduled Procedures Name Priority Associated Diagnoses Date/Ti [...] this encounter Medical Devices Implanted Type Area Handbell Choir Director Device Identifier Shelf Expiration Date Model / Serial / Lot Suture [place] Dbl Load 4.75mm - [id number] Implanted:Qty: 1 on 12/01/2019 by Judith Condon DO at OR [facility] Right: Shoulder [employer] 07/17/2021 AR-2324BCT -2 / / [id number] Suture [place] Dbl Load 5.5mm - [id number] Implanted:Qty: 1 on 12/01/2019 by Judith Condon DO at OR [facility] Right: Shoulder [employer] 09/16/2021 AR-2323BCT -2 / / [id number] documented as of this encounter Advance Directives [...] Power of Attor niles? No Care Teams Collections Representative Relationship Specialty Start Date End Date Velasquez Valencia MD [address] [place] [address] PCP - General Family Medicine 09/09/22 documented as of this encounter
--- OUTSIDE RECORDS SUMMARY | 2024-07-14 04:52 | External Medical Summary | Summary of Care ---
Author Name Unknown Organization [facility] Address [address] [address] Phone [phone] Care Team Providers Care Business Analyst Project Manager Name Role Phone Velasquez Valencia MD Primary Care Provider [phone]- [phone] Reason for Visit * Reason Onset Date Comments Hospital Follow-Up Hospital Follow-Up 03/06/2024 Encounter Details Date Type Department Care Team (Late st Contact Info) Description 02/10/2024 3:40 PM EDT Office Visit [facility] [id number] [place] [address] Velasquez Valencia MD [address] [place] [address] Charcot ankle, left*; S/P hardware removal; S/P ankle fusion; Abdominal pain, epigastric; Type 2 diabetes mellitus with hemoglobin A1c goal of less than 7.0% (HCC); Special screening examination for viral disease; COPD, moderate (HCC); Need for hepatitis C screening test; Need for vaccination for zoster; Hospital discharge follow-up Allergies Active Allergy Reactions [...] morning. 90 Tablet 3 11/08/19 24 Active Metoprolol Succinate ER 100 MG Oral Tablet Extended Release 24 Hour (toPROL XL)Indications:H TN, goal below 140/90 Take 1 tab by mouth twice per day 180 Tablet 3 12/29/19 24 Active Pantoprazole Sodium 40 MG Oral Tablet Delayed Release (Protonix) TAKE 1 TABLET BY MOUTH TWICE A DAY 180 Tablet 1 01/08/20 24 Active Toujeo SoloStar 300 UNIT/ML Subcutaneous Solution Pen-injector (Insulin Glargine (1 Unit Dial))Indication s:Type 2 diabetes mellitus with hemoglobin A1c goal of less than 7.0% (HCC) Inject 40 units twice daily- this replaces lantus 54 mL 4 01/19/20 24 Active BD Pen Needle Short U/F 31G X 8 MM (Insulin Pen Needle)Indicatio ns:Type 2 diabetes mellitus with hemoglobin A1c goal of less than 7.0% (HCC) Use to inject insulin 5 times daily 500 Each 3 01/19/20 24 Active Sennosides-Docus ate Sodium 8.6-50 MG Oral Tablet (Senokot-S) Take 1 Tablet by mouth in the morning. 30 Tablet 11/06/19 24 024 Discontinued Fluticasone-Salm eterol 115-21 MCG/ACT Inhalation Aerosol (Advair HFA) Inhale 2 Puffs by mouth in the morning and 2 Puffs before bedtime. 12 g 12 11/17/19 24 024 Discontinued Movantik 25 MG Oral Tablet (Naloxegol Oxalate) take 1 tablet by mouth in the morning 30 Tablet 1 12/27/19 24 024 Discontinued Insulin Aspart FlexPen 100 UNIT/ML Subcutaneous Solution Pen-injectorIndi cations:Type 2 diabetes mellitus with hemoglobin A1c goal of less than 7.0% (HCC) inject 22 units subcutaneously three times a day with meals 75 mL 4 01/19/20 24 024 Discontinued(Re fill) traMADol HCl 50 MG Oral Tablet (Ultram)Indicati ons:Abdominal pain, epigastric Take 1 Tablet by mouth every 6 hours as needed for Pain, Severe. 40 Tablet 01/20/20 24 024 Discontinued(Re fill) Cyclobenzaprine HCl 10 MG Oral Tablet (Flexeril)Indica tions:Lumbar disc herniation TAKE 1 TABLET BY MOUTH AT BEDTIME ONLY NEEDED 30 Tablet 01/25/20 24 024 Discontinued(Re fill) Pioglitazone HCl 30 MG Oral Tablet (Actos)Indicatio ns:Type 2 diabetes mellitus with hemoglobin A1c goal of less than 7.0% ([facility]) Take 1 Tablet by mouth in the morning. Dose increase. 90 Tablet 02/07/20 24 024 Discontinued traMADol HCl 50 MG Oral Tablet (Ultram)Indicati ons:Abdominal pain, epigastric Take 1 Tablet by mouth every 6 hours as needed for Pain, Severe. 40 Tablet 02/10/20 24 024 Discontinued(Re fill) documented as of this encounter (statuses as [...] IM 11/04/2009 Pneumococcal Conjugate Vacci ne, 20-valent ([id number]) 07/09/2023 Pneumococcal Polysaccharide PPV23 (Pneumovax) 11/03/2015,02/09/2006 Seasonal [...] Sign Reading Time Taken Comments Blood Pressure 122/60 02/10/2024 3:46 PM EDT Pulse 105 02/10/2024 3:46 PM EDT Temperature 36.5 C (97.7 F) 02/10/2024 3:46 PM ED T Respiratory Rate 16 02/10/2024 3:46 PM EDT Oxygen Saturation 95% 02/10/2024 3:46 PM EDT Inhaled Oxygen Concentration - - Weight 137 kg (302 lb) 02/10/2024 3:46 PM EDT Height - - Body Mass Index 39.84 01/14/2024 11:08 AM EDT documented in this encounter Functional [...] No 12/12/2023 documented as of this encounter Progress Notes * Velasquez Valencia MD - 02/10/2024 4:06 PM EDT Subjective: Bry Akhtar Jr. is a 48 year old male here today for Chief Complaint Patient presents with Follow Up Patient is here due to surgery on follow up Patient states he has high blood glucose levels, and went to the er due to this on the Patient sattes he had to go back to the hospital due to his leg bleeding Patient states he is having severe back and stomach pain Pt presents for hospital follow up from [facility]. Admitted 02/04/24 - 02/05/[address] Camacho. Had removal of previous hardware which had failed. Pt does have follow up scheduled with Dr Camacho. He has been having uncontrolled blood sugars. Continues with abd pain - on both sides and in center of back. Has had multiple episodes of emesis - typically in AM. Does ok overnight. 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 Current use of insulin ([facility]) 09/13/2017 DDD (degenerative disc disease), cervical 07/12/2019 Diabetes mellitus type 2, insulin dependent ([facility]) 07/05/2017 Diabetic polyneuropathy associated with type 2 diabetes mellitus ([facility]) 07/24/2016 Displacement of lumbar intervertebral disc without myelopathy DM type 2, goal: symptom mgmt ([facility]) 09/13/2017 DM type 2, not at goal ([facility]) Dyslipidemia, goal LDL below 70 07/24/2016 Gastroesophageal reflux disease without esophagitis 05/07/2020 Gastroparesis 08/27/2015 GERD (gastroesophageal reflux disease) History of DVT (deep vein thrombosis) 04/19/2019 HTN, goal below 140/90 12/23/2015 Per HTN Protocol #27. HTN, goal: symptom mgmt only 09/13/2017 IBS (irritable bowel syndrome) 08/27/2015 Intellectual disability 10/25/2019 Major depressive disorder, recurrent, severe without psychotic features ([facility]) 12/22/2016 Obesity, Class II, BMI 35-39.9, isolated (see actual BMI) 04/19/2019 OTHER osseochondrosis ankle Primary localized osteoarthrosis, lower leg Sleep apnea, obstructive Tobacco use disorder 12/22/2016 Type 2 diabetes mellitus with hemoglobin A1c goal of less than 8.0% ([facility]) 07/05/2017 Past Surgical History: Procedure Laterality Date ARTHO,MOISESUL,W/ROTATOR CUFF Right 12/01/2019 ARTHROSCOPY SHOULDER ROTATOR CUFF performed by Judith Condon DO at OR [facility] COLONOSCOPY, DIAGNOSTIC (RECTUM) 04/18/2015 adenomatous polyp, repeat 5 yrs/[facility] COLONOSCOPY, DIAGNOSTIC (RECTUM) 04/15/2023 poor prep, repeat / [facility] COLONOSCOPY, DIAGNOSTIC (RECTUM) N/A 02/22/2024 normal/recall 5 years/COLONOSCOPY FLEXIBLE PROXIMAL DIAGNOSTIC performed by Marcela Del Valle MD at OR [facility] EGD, FLEXIBLE, DIAGNOSTIC 10/17/2014 mild-mod inflammation, repeat 1-2 mo/[facility] EGD, FLEXIBLE, DIAGNOSTIC 04/17/2015 normal bx/inpt [facility] EGD, FLEXIBLE, DIAGNOSTIC 05/08/2019 reflux esophagitis, gastritis, duodenitis, repeat 6 wks / [facility] EGD, FLEXIBLE, DIAGNOSTIC 08/18/2019 normal-EGD/[place] EGD, FLEXIBLE, DIAGNOSTIC N/A 05/02/2020 biopsies normal/[facility] EGD, FLEXIBLE, DIAGNOSTIC N/A 02/22/2024 antral gastritis/biopsies normal/ESOPHAGOGASTRODUODENOSCOPY (EGD), FLEXIBLE, TRANSORAL, DIAGNOSTIC performed by Marcela Del Valle MD at OR [facility] INJECT DX/THER SUBSTANCE INTERLAMINAR CERVICAL/THORACIC W IMAGE GUIDE 08/17/2019 INJECTION SPINE LUMBAR CERVICAL OR THORACIC performed by Dario Nails DO at OR [facility] KNEE ARTHROSCOPY, DIAGNOSTIC l knee REMOVAL OF TONSILS, UNDER AGE 12 SHOULDER ARTHROSCOPY, BICEPS TENODESIS Right 12/01/2019 ARTHROSCOPY SHOULDER BICEP TENODESIS performed by Judith Condon DO at OR [facility] SHOULDER ARTHROSCOPY/DECOMPRESSION Right 12/01/2019 ARTHROSCOPY SHOULDER SUBACROMIAL DECOMPRESSION performed by Judith Condon DO at OR [facility] Review of patient's allergies indicates: Allergen [...] Tablets in the evening. 360 Tablet 3 Gabapentin 100 MG Oral Capsule (Neurontin) take 1 capsule by mouth every morning and 2 capsules by mouth at bedtime (Patient taking differently: Take 2 Capsules by mouth in the morning and 2 Capsulesbefore bedtime. take 2 capsule by mouth every morning and 2 capsules by mouth at bedtime.) 270 Capsule 1 Metoclopramide HCl 10 MG Oral Tablet (Reglan) take 1 tablet by mouth three times a day ( 30 MINUTESbefore MEALS ) 270 Tablet 1 Losartan Potassium 100 MG Oral Tablet (Cozaar) [...] TAKE 1 TABLET BY MOUTH TWICE A [id number] Tablet 1 Toumeghna SoloStar 300 UNIT/ML Subcutaneous [...] over 150. Max daily dose of 115 [id number] mL 4 Pioglitazone HCl 45 MG Oral Tablet (Actos) Take 1 Tablet by mouth in the morning. Please fill in about a month- patient is going to be using up his current supply of 15 mg and 30 mg tablets. 90 Tablet 4 Movantik 25 MG Oral Tablet (Naloxegol Oxalate) take 1 tablet by mouth in the morning 30 Tablet 0 Cyclobenzaprine HCl 10 MG Oral Tablet (Flexeril) TAKE 1 TABLET BY MOUTH AT BEDTIME ONLY NEEDED 30 Tablet 0 traMADol HCl 50 MG Oral Tablet (Ultram) Take 1 Tablet by mouth every 6 hours as needed for Pain, Severe. 40 Tablet 0 Clindamycin HCl 300 MG Oral Capsule Take 1 Capsule by mouth in the morning and 1 Capsule at noon and 1 Capsule in the evening and 1 Capsule before bedtime. hydroCHLOROthiazide 25 MG Oral Tablet (Hydrodiuril) Take 1 Tablet by mouth in the morning. No current facility-administered medications for this visit. Objective: BP 122/60 | Pulse 105 | Temp 36.5 C (97.7 F) (Temporal Artery) | Resp 16 | Wt (!) 137 kg (302 lb) | SpO2 95% | BMI 39.84 kg/m | BSA 2.66 m GEN: NAD HEENT: Benign NECK: Supple with no LAD, TM, JVD CHEST: CTA B CV: RRR ABD: Soft, NT/ND, No HSM, NABS EXT: No c,c,e Assessment and Plan: Charcot ankle, left (Primary) S/P hardware removal S/P ankle fusion -follow up with surgeon - already scheduled. Call for new or worsening symptoms. Abdominal pain, epigastric - LIPASE; Future; Expected date: 02/10/2024 - CBC; Future; Expected date: 02/10/2024 Type 2 diabetes mellitus with hemoglobin A1c goal of less than 7.0% (HCC) -reviewed strategies for improved blood sugar control. Continue with MTM Special screening examination for viral disease COPD, moderate (HCC) Need for hepatitis C screening test Need for vaccination for zoster Velasquez Valencia MD documented in this encounter Nursing Notes * Garret Webster, Student - 02/10/2024 3:47 PM EDT The patient has been properly identified by confirmation of name and date of . Chief Complaint Patient presents with Follow Up Patient is here due to surgery on follow up Patient states he has high blood glucose levels, and went to the er due to this on the Patient sattes he had to go back to the hospital due to his leg bleeding Patient states he is having severe back and stomach pain documented in this encounter Plan of Treatment Upcoming Encounters Date Type Department Care Team (Late st Contact Info) Description 05/08/2024 11:40 AM EDT Office Visit [facility] [address] [place] [address] Velasquez Valencia MD [address] [place] [address] Scheduled Procedures Name Priority Associated [...] this encounter Medical Devices Implanted Type Area Canine Deputy Device Identifier Shelf Expiration Date Model / Serial / Lot Suture [place] Dbl Load 4.75mm - [id number] Implanted:Qty: 1 on 12/01/2019 by Judith Condon DO at OR [facility] Right: Shoulder [employer] 07/17/2021 [id number] -2 / / [id number] Suture [place] Dbl Load 5.5mm - [id number] Implanted:Qty: 1 on 12/01/2019 by Judith Condon DO at OR [facility] Right: Shoulder [employer] 09/16/2021 [id number] -2 / / [id number] documented as of this encounter Results * (ABNORMAL) CBC (02/11/2024 10:28 AM EDT) WBC 8.36 4.00 - 10.80 K/uL 02/11/2024 2:42 PM EDT [facility] RBC 4.08 4.50 - 5.25 M/uL 02/11/2024 2:42 PM EDT [facility] HGB 10.8(L) 14.0 - 16.8 g/dL 02/11/2024 2:42 PM EDT [facility] HCT 35.3(L) 40.0 - 48.4 % 02/11/2024 2:42 PM EDT [facility] MCV 86.5 82.0 - 99.5 fL 02/11/2024 2:42 PM EDT [facility] MCH 26.5 27.0 - 34.0 pg 02/11/2024 2:42 PM EDT [facility] MCHC 30.6 32.0 - 36.0 g/dL 02/11/2024 2:42 PM EDT [facility] RDW 14.5 11.5 - 15.5 % 02/11/2024 2:42 PM EDT [facility] PLT 338 140 - 400 K/uL 02/11/2024 2:42 PM EDT [facility] MPV 9.4 6.6 - 11.1 fL 02/11/2024 2:42 PM EDT [facility] nRBCs 0 <=0 /100 WBCs 02/11/2024 2:42 PM EDT [facility] Blood Venous blood specimen / Unknown Venipuncture / Unknown 02/11/2024 10:28 AM EDT 02/11/2024 10:28 AM EDT Velasquez Valencia MD LAB BLOOD ORDERABL ES [facility] [address] [place] [address] * LIPASE (02/11/2024 10:28 AM EDT) Lipase 25 13 - 60 U/L 02/12/2024 3:09 AM EDT [facility] [place] Venous blood specimen / Unknown Venipuncture / Unknown 02/11/2024 10:28 AM EDT 02/11/2024 10:28 AM EDT Velasquez Valencia MD LAB BLOOD ORDERABL ES [facility] [address] [place] [address] documented in this encounter Visit Diagnoses Diagnosis Charcot ankle, left- Primary S/P hardware removal Other postprocedural status S/P ankle fusion Arthrodesis status Abdominal pain, epigastric Type 2 diabetes mellitus with hemoglobin A1c goal of less than 7.0% (HCC) Special screening examination for viral disease Special screening examination for unspecified viral disease COPD, moderate (HCC) Chronic airway obstruction, not elsewhere classified Need for hepatitis C screening test Special screening examination for other specified viral diseases Need for vaccination for zoster Need for prophylactic vaccination and inoculation against other viral diseases Hospital discharge follow-up Other follow-up examination documented in this encounter Advance Directives * [...] Power of Attor niles? No Care Teams Business Analyst Project Manager Relationship Specialty Start Date End Date Velasquez Valencia MD [address] [place] [facility] [place] [address] PCP - General Family Medicine 09/09/22 documented as of this encounter"
--- OUTSIDE RECORDS SUMMARY | 2024-07-14 04:52 | External Medical Summary | Summary of Care ---
Author Name Unknown Organization [facility] Address [address] [place] [address] Phone [phone] Care Team Providers Care Public Address System Mechanic Name Role Phone Velasquez Valencia MD Primary Care Provider [phone]- [phone] Reason for Visit * Reason Comments Wound Recheck * Auth/Cert Specialty Diagnoses / Procedures Referred By Bismark brown Referred To Contact [facility] [address] [place] [address] Phone: [phone] Emergency Medicine [facility] [address] [place] [address] Referral ID Status Reason Start Date Expiration Date Visits Re quested Visits Authorized [id number] Encounter Details Date Type Department Care Team (Latest Contact Info) Description 03/03/2024 2:32 PM EDT - 03/06/2024 2:10 PM EDT Hospital Encounter 3B [facility], [facility] 3rd Floor [address] [place] [address] Toni Hawthorne DO [address] [place] [address] Pb Garduno MD [address] [facility] [place] [address] Junior Wylie MD [address] [facility] [place] [address] Pt Handout (on AVS) Discharge Disposition: Short Term Hospital Allergies Active Allergy Reactions Criticality Noted Date Comments Cefaclor Unknown 07/26/2018 As child Empagliflozin Other (Please comment) 05/16/2021 DKA with hospitalization Nsaids High 04/19/2019 Gastric problems Other Reaction(s): gastroparesis, kidney problems, use with caution : hx esophagus damage documented as of this encounter (statuses as of 03/07/2024) Medications Medication Sig Dispensed Refills Start Date [...] A1c goal of less than 7.0% ([facility]) Take 2 Tablets by [...] A1c goal of less than 7.0% ([facility]) Take 1 Tablet by mouth in the morning. Please fill in about a month- patient is going to be using up his current supply of 15 mg and 30 mg tablets. 90 Tablet 4 4 Active Movantik 25 MG Oral Tablet (Naloxegol Oxalate) take 1 tablet by mouth in the morning 30 Tablet 4 Active Cyclobenzaprine HCl 10 MG Oral Tablet (Flexeril)Indicat ions:Lumbar disc herniation TAKE 1 TABLET BY MOUTH AT BEDTIME ONLY NEEDED 30 Tablet 4 Active traMADol HCl 50 [...] by mouth in the morning. 3 Active Sennosides-Docusa te Sodium 8.6-50 MG Oral Tablet (Senokot-S) Take 1 Tablet by mouth in the morning. 30 Tablet 4 03/04/20 24 Discontinued Fluticasone-Salme terol 115-21 MCG/ACT Inhalation Aerosol (Advair HFA) Inhale 2 Puffs by mouth in the morning and 2 Puffs before bedtime. 12 g 12 4 03/04/20 24 Discontinued documented as of this encounter (statuses as of 03/07/2024) Active Problems Problem Noted Date Diagnosed Date [...] as of this encounter (statuses as of 03/07/2024) Resolved Problems Problem Noted Date Diagnosed Date [...] as of this encounter (statuses as of 03/07/2024) Immunizations Name Administration Dates Next Due COVID-19 mRNA, LNP-s, No Pre serve, 2-Dose Series (GroovinAds) 10/21/2021,03/01/2021,02/07/2021 H1N1 2009 Influenza, IM 11/04/2009 Pneumococcal Conjugate Vacci ne, 20-valent (Nrotmoy24) 07/09/2023 Pneumococcal Polysaccharide PPV23 (Pneumovax) 11/03/2015,02/09/2006 Seasonal [...] Sign Reading Time Taken Comments Blood Pressure 141/58 03/06/2024 11:00 AM EDT Pulse 95 03/06/2024 11:00 AM EDT Temperature 36.5 C (97.7 F) 03/06/2024 1 1:00 AM EDT Respiratory Rate 18 03/06/2024 11:0 0 AM EDT Oxygen Saturation 91% 03/06/2024 11: 00 AM EDT Inhaled Oxygen Concentration - - Weight 146.6 kg (323 lb 3.1 oz) 03/06/2024 4:34 AM EDT Height 190.5 cm (6' 3") 03/03/2024 8:25 PM EDT Body Mass Index 40.4 03/03/2024 8:25 PM EDT documented in this encounter Functional [...] No 03/03/2024 documented as of this encounter Discharge Summaries * Junior Wylie MD - 03/06/2024 9:57 AM EDT [facility] [address] Admission Date: 03/03/2024 Discharge Date: 03/06/2024 RECOMMENDED TO DO FOR NEXT PROVIDER(S): Transfer to [facility] REASON(S) FOR MEDICATION CHANGE(S): DISPOSITION ON DISCHARGE: home Active Hospital Problems Diagnosis *Principal Diagnosis - Cellulitis of left lower extremity S/P hardware removal Ankle wound, left, initial encounter Charcot ankle, left COPD, moderate (HCC) Restrictive lung disease secondary to obesity Obstructive sleep apnea Chronic respiratory failure with hypercapnia (HCC) Tobacco use disorder Diabetic polyneuropathy associated with type 2 diabetes mellitus (HCC) Hyperlipidemia with target LDL less than 70 Type 2 diabetes mellitus with hemoglobin A1c goal of less than 7.0% (HCC) Morbid obesity (HCC) Resolved Hospital Problems No resolved problems to display. ADMISSION HISTORY & PHYSICAL EXAM (focused): Per Dr garduno Bry Akhtar Jr is a 48-year-old male with a past medical history of type 2 diabetes, hypertension,GERD, dyslipidemia, IBS, gastroparesis, tobacco use disorder, sleep apnea, restrictive lung diseasedue to obesity, left Charcot arthropathy, status post left ankle fusion on 10/20/[address] Camacho at [facility] presented to [facility] ED for evaluation of worsening left ankle pain. Patient reports having the hardware removed by Dr. Camacho at [facility] on 02/04/2024, since then he has had a wound that has been draining blood. Reports the pain in his left ankle is worsening and the swellingand redness is getting worse. Denies fevers, chills, nausea, vomiting, decreased appetite. Patient was seen at an outside facility ED yesterday, they consulted Dr. Camacho who recommended starting clindamycin and he will follow up with them on Wednesday. Patient continued to have worsening pain and worsening bleeding from his wound which prompted him to come to [facility] ED today. Abdominal: General: Abdomen is flat. Bowel sounds are normal. Palpations: Abdomen is soft. Tenderness: There is no abdominal tenderness. Musculoskeletal: Right lower leg: No edema. Left lower leg: No edema. Skin: General: Skin is warm and dry. Capillary Refill: Capillary refill takes less than 2 seconds. Comments: Erythema and swelling of the left ankle on the medial aspect. HOSPITAL COURSE (focused): 48 yo M patient with DM type 2, Obesity, COPD ,DAMION, HTN, GERD status post left ankle fusion on 10/20/[address] Camacho at [facility] presented to [facility] ED for evaluation of worsening left ankle pain. Patient reports having the hardware removed by Dr. Camacho at [facility] on 02/04/2024, since then he has had a wound that has been draining blood. Patient was started on broad spectrum antibiotics- iv vanc, zosyn for possible infection of ankle joint Podiatry was consulted. purulent drainage from the wound noted from ankle joint; MRI showed revealsFindings consistent with septic arthritis and extensive osteomyelitis of the left ankle and hindfoot, with background postoperative changes of prior tibiotalocalcaneal fusion and subsequent hardware removal. Case was discussed with Ortho - recommend patient transfer to [facility] where his surgery was performed Spoke with [facility] transfer center to hospitalist service- patient is accepted for transfer by Dr Pruitt Spoke to Dr Camacho 03/06 and relayed information about patient's MRI findings and transfer Operations & Procedures: none Complications: none significant Significant Lab and Imaging Results: As mentioned above Results Pending at Discharge: Lab Results Pending at Discharge: VANCOMYCIN RANDOM TIMED BASIC METABOLIC PANEL Routine CBC Routine MAGNESIUM Routine PHOSPHORUS Routine MEDICATION UPDATES AT DISCHARGE CONTINUE taking these medications but follow up with your Primary Care Physician (PCP). INSTRUCTIONS albuterol HFA 108 (90 BASE) MCG/ACT [...] 1 Tablet by mouth in the morning. Clindamycin HCl 300 MG Capsule Notes to patient: antibiotic Take 1 Capsule by mouth in the morning and 1 Capsule at noon and 1 Capsule in the evening and 1 Capsule before bedtime. cyclobenzaprine 10 MG Tablet Commonly known as: Flexeril Notes to patient: Used to relax muscles TAKE 1 TABLET BY MOUTH AT BEDTIME ONLY NEEDED dicyclomine 10 MG Capsule Commonly known as: Bentyl Notes to patient: Used to treat GI (gastrointestinal) spasms and irritable bowel syndrome' take 1 capsule by mouth four times a day Famotidine 20 MG Tablet Commonly known as: Pepcid Notes to patient: Used to treat or prevent GI (gastrointestinal) ulcers, gastroesophageal reflux disease (GERD; acid reflux), heartburn and sour stomach, and syndromes caused by lots of stomach acid Take 1 Tablet by mouth every night at bedtime. Gabapentin 100 MG Capsule Commonly known as: Neurontin Notes to patient: Used to treat painful nerve diseases and to help control certain kinds of seizures take 1 capsule by mouth every morning and 2 capsules by mouth at bedtime HealthyLax 17 g packet Generic drug: Polyethylene Glycol 3350 Notes to patient: Used to ease constipation Mix 1 Packet in 4 to 8 ounces of any beverage and drink by mouth in the morning. hydroCHLOROthiazide 25 MG Tablet Commonly known as: Hydrodiuril Notes to patient: Used to treat high blood pressure and get rid of extra fluid Take 1 Tablet by mouth in the morning. Insulin Aspart FlexPen 100 UNIT/ML Sopn Notes to patient: Used to control blood sugar Inject 32 units with breakfast 22 units [...] Capsule Generic drug: Psyllium Notes to patient: Used to treat constipation Take 1 Capsule by mouth in [...] 10 MG Tablet Commonly known as: Reglan Notes to patient: Used to treat or prevent heartburn, upset stomach and throwing up, gastroesophageal reflux disease (GERD; acid reflux), and treat a slow moving GI (gastrointestinal) tract in some people take 1 tablet by mouth three times [...] 1 Tablet by mouth in the morning. Tosb SoloStar 300 UNIT/ML Sopn Generic drug: Insulin [...] Use to inject insulin 5 times daily SCHEDULED FOLLOW-UP: Future Appointments Appt Date/Time Provider Department 05/08/2024 11:40 AM Velasquez Valencia MD [facility] Other Information Indwelling Devices: LINES ALL Duration Peripheral Line Right Arm 20 Gauge 2 days Vital Signs (last recorded): Most Recent Systolic BP: 150 mmHg (03/05/24756) Most Recent Diastolic BP: 70 mmHg (03/05/24756) Pulse: 93 (03/05/24756) Resp: 18 (03/05/24756) Most Recent Temperature: 36.11 C (03/05/24756) Weight: (!) 147.1 kg (324 lb 6.4 oz) (03/05/24 0406) SpO2: 95 % (03/05/24756) Allergies: Nsaids, Ceclor [cefaclor], and Jardiance [empagliflozin] Activity: as tolerated Diet: age appropriate diet Code Status: Full Code Condition on Discharge: stable Isolation status: None Cognition: normal HOSPITAL CONSULTS ORDERED: PODIATRY CONSULT IP REFERRING PHYSICIAN: Ref: [id number][[id number]] NO STREET ADDRESS AVAILABLE None (office) None (fax) PRIMARY CARE PROVIDER: PCP: Velasquez Valencia MD [address] [place] [phone] (office) [phone] (fax) Note: To contact a physician responsible for this patients hospital care, please call [employer] [phone]. I spent a total of 45 minutes coordinating, documenting, and providing care for this patient excluding time spent in the performance of separately billed services. documented in this encounter Discharge Instructions * Pharmacy Instr - AVS* George Salomon RPh - 03/04/2024 1:58 PM EDT documented in this encounter Progress Notes * MarileeTom Marilee, [facility] - 03/06/2024 8:51 AM EDT PHARMACY PHARMACOKINETIC CONSULT [address] [address] Name: Bry Akhtar Jr. Location: [facility] 3B-[id number]/D Date: 03/06/2024 Time: 8:49 AM Requesting Service: Hospitalist Bacteria being treated: Empiric Source of infection: SSTI Medication(s) being managed: Vancomycin Pharmacokinetic calculations will be performed utilizing Gogobot software. Lab information: Lab Results Component Value Date/Time WBC 7.55 03/06/2024 05:41 AM WBC 8.09 03/05/2024 05:18 AM WBC 10.70 03/04/2024 06:44 AM WBC 10.46 03/03/2024 03:24 PM WBC 8.36 02/11/2024 10:28 AM WBC 6.86 11/25/2019 08:53 AM WBC 6.87 07/26/2018 02:45 PM WBC 6.63 09/20/2017 06:15 AM WBC 7.77 09/13/2017 06:19 AM WBC 8.91 09/02/2009 12:17 PM Lab Results Component Value Date/Time BUN 14 03/06/2024 05:41 AM BUN 14 03/05/2024 05:18 AM BUN 22 (H) 03/04/2024 06:44 AM BUN 22 (H) 03/03/2024 03:24 PM BUN 22 (H) 01/14/2024 10:59 AM BUN 12 11/25/2019 08:53 AM BUN 16 09/20/2017 06:15 AM BUN 16 09/13/2017 06:19 AM BUN 12 11/12/2016 12:55 PM BUN 13 05/07/2015 09:17 AM Lab Results Component Value Date/Time CREAT 0.8 03/06/2024 05:41 AM CREAT 0.8 03/05/2024 05:18 AM CREAT 1.0 03/04/2024 06:44 AM CREAT 0.9 03/03/2024 03:24 PM CREAT 0.98 02/07/2024 12:00 AM CREAT 0.8 12/22/2023 11:48 AM CREAT 0.96 02/07/2023 12:00 AM CREAT 0.69 02/28/2021 12:00 AM CREAT 0.8 11/25/2019 08:53 AM CREAT 0.92 03/21/2019 12:00 AM CREAT 0.85 07/29/2018 12:00 AM CREAT 0.8 09/20/2017 06:15 AM CREAT 0.8 09/13/2017 06:19 AM CREAT 0.9 11/12/2016 12:55 PM CREAT 0.9 05/07/2015 09:17 AM ANTIMICROBIALS GIVEN (last 28 hours) Date/Time Action Medication Dose Rate 03/06/24 0552 New Bag Piperacillin-Tazobactam (Zosyn) 4.5 g in 100 mL NSS ivpb (FOUR hour infusion) 4.5 g 27.5 mL/hr 03/05/24 2249 New Bag Piperacillin-Tazobactam (Zosyn) 4.5 g in 100 mL NSS ivpb (FOUR hour infusion) 4.5 g 27.5 mL/hr 03/05/24 2026 New Bag Vancomycin (Vancocin) 1750 mg in NSS 500 mL 1,750 mg 283.75 mL/hr 03/05/24 1410 New Bag Piperacillin-Tazobactam (Zosyn) 4.5 g in 100 mL NSS ivpb (FOUR hour infusion) 4.5 g 27.5 mL/hr 03/05/24 0922 New Bag Vancomycin (Vancocin) 1750 mg in NSS 500 mL 1,750 mg 283.75 mL/hr 03/05/24 0519 New Bag Piperacillin-Tazobactam (Zosyn) 4.5 g in 100 mL NSS ivpb (FOUR hour infusion) 4.5 g 27.5 mL/hr Wt Readings from Last 1 Encounters: 03/06/24 (!) 146.6 kg (323 lb 3.1 oz) Levels to date: Lab Results Component Value Date/Time VANCORANDOM 10.9 03/05/2024 05:18 AM VANCORANDOM 10.4 10/29/2023 05:07 AM Impression: Bry Akhtar Jr. is a/an 48 year old male receiving vancomycin therapy. The pharmacokinetic target for therapy is AUC24,SS (range) 400-600mg/L.hr Assessment and Plan: Analysis of the most recent level(s) using SupernovaRX gives the following patient-specific pharmacokinetic parameters: CL: 7.29 L/hr V: 86.6 L T1/2: 8.82 hours Using these values, the current regimen of Vancomycin 1750 mg IV every 12 hours is predicted to result in a steady-state trough of 13.4 mg/L and AUC24 of 476 mg/L.hr. At this time we recommend a regimen of 1750 mg IV every 12 hours, which is predicted to result in a steady-state trough of 13.4 mg/Land AUC24 of 476 mg/L.hr. Recommendations: - Vancomycin 1750 mg IV every 12 hours - Obtain Vancomycin level 03/08 @ 600 - Continue to monitor serum creatinine Pharmacy will continue to follow and dose as appropriate by renal function, culture results, infectious disease input, and overall clinical status. Contact the Pharmacy at extension [phone] if there are any questions. Tom Hunt RPh * Junior Wylie MD - 03/05/2024 2:10 PM EDT PROGRESS NOTE - Hospitalist [facility] Name:Bry Akhtar Jr. SEX: male AGE: [age] year old Date: 03/06/2024 48 yo M patient with DM type 2, Obesity, COPD ,DAMION, HTN, GERD status post left ankle fusion on 10/20/[address] Camacho at [facility] presented to [facility] ED for evaluation of worsening left ankle pain. Patient reports having the hardware removed by Dr. Camacho at [facility] on 02/04/2024, since then he has had a wound that has been draining blood. Podiatry was consulted - purulent drainage from the wound noted from ankle joint; MRI read by Podiatry - reveals OM of rearfoot. Case was discussed with Ortho - recommend patient transfer to [facility] where his surgery was performed Spoke with [facility] transfer center to hospitalist service- patient is accepted for transfer by Dr Pruitt SUBJECTIVE: Patient's pain is controlled with current regimen. He is accepted to [facility] and currently waiting for a bed OBJECTIVE: VITALS: BP 141/58 | Pulse 95 | Temp 36.5 C (97.7 F) (Temporal Artery) | Resp 18 | Ht 1.905 m (6' 3") | Wt (!) 146.6 kg (323 lb 3.1 oz) | SpO2 91% | BMI 40.40 kg/m | BSA 2.79 m Intake/Output Summary (Last 24 hours) at 03/06/2024 1620 Last data filed at 03/06/2024 1246 Gross per 24 hour Intake 2822.3 ml Output -- Net 2822.3 ml PHYSICAL EXAMINATION: Constitutional: alert , awake , no acute distress. Eyes: PERRLA, conjunctiva no pallor, sclera anicteric. CV: normal rate and rhythm, no murmur, gallops or rub. Peripheral pulses normal. Lungs: Clear to auscultate bilateral, no wheezing, rhonchi, crackles. Abdomen: Soft, non tender non distended, BS+, No organomegaly. Extremities: left ankle blake wrapped-extreme tenderness around ankle joint, unable to flex the joint Neuro: alert, oriented x3, no focal deficits Psych: normal mood and affect. LABS: Lab results within last 7 days (see chart for full results) Units 03/06/24 0541 03/05/24 0518 03/04/24 0644 HGB g/dL 9.4* 10.1* 9.6* HCT % 30.9* 35.0* 30.2* WBC K/uL 7.55 8.09 10.70 PLT K/uL 288 257 277 Lab results within last 7 days (see chart for full results) Units 03/06/24 0541 03/05/24 0518 03/04/24 0644 Sodium mmol/L 137 134* 137 Potassium mmol/L 4.1 4.5 4.5 Chloride mmol/L 99 101 99 CO2 mmol/L 24 18* 26 BUN mg/dL 14 14 22* Creatinine mg/dL 0.8 0.8 1.0 IMPRESSION AND PLAN: Principal Problem: Cellulitis of left lower extremity Active Problems: Morbid obesity (HCC) Type 2 diabetes mellitus with hemoglobin A1c goal of less than 7.0% (HCC) Diabetic polyneuropathy associated with type 2 diabetes mellitus (HCC) Hyperlipidemia with target LDL less than 70 Tobacco use disorder Chronic respiratory failure with hypercapnia (HCC) Obstructive sleep apnea Restrictive lung disease secondary to obesity COPD, moderate (HCC) Charcot ankle, left S/P hardware removal Ankle wound, left, initial encounter Resolved Problems: * No resolved hospital problems. * Plan: - Continue iv vanc, zosyn - MRI left ankle read pending - CD needs to be sent along with patient to [facility] - Podiatry consult appreciated - Patient is accepted to transfer to [facility], awaiting bed availability, transfer papers signed Diet : HHD Activity :OOB DVT Prophylaxis: heparin SQ 55 minutes were spent in the care of this patient. More than half of my time was spent counseling the patient or family. This chart was completed in part utilizing Knowrom Speech Voice Recognition Software. Grammatical errors, random word insertions, prounoun erros, and incomplete sentences are an occasional consequence of this system due to software limitations, ambient noise, and hardware issues. Any formal questions or concerns about the content, text, or information contained within the body of this dictation should be directly addressed to the provider for clarification. Note: To contact a physician responsible for this patients hospital care, please call [facility] [phone]. * George Salomon, [facility] - 03/05/2024 7:08 AM EDT PHARMACY PHARMACOKINETIC CONSULT [facility] [address] Name: Bry Akhtar Location: [facility] 3B-3019/D Date: 03/05/2024 Time: 7:08 AM Requesting Service: Hospitalists Medication(s) being managed: Vancomycin Pharmacokinetic calculations will be performed utilizing Gogobot software. Lab information: Lab Results Component Value Date/Time WBC 8.09 03/05/2024 05:18 AM WBC 10.70 03/04/2024 06:44 AM WBC 10.46 03/03/2024 03:24 PM WBC 8.36 02/11/2024 10:28 AM WBC 7.72 12/22/2023 11:48 AM WBC 6.86 11/25/2019 08:53 AM WBC 6.87 07/26/2018 02:45 PM WBC 6.63 09/20/2017 06:15 AM WBC 7.77 09/13/2017 06:19 AM WBC 8.91 09/02/2009 12:17 PM Lab Results Component Value Date/Time BUN 14 03/05/2024 05:18 AM BUN 22 (H) 03/04/2024 06:44 AM BUN 22 (H) 03/03/2024 03:24 PM BUN 22 (H) 01/14/2024 10:59 AM BUN 17 12/22/2023 11:48 AM BUN 12 11/25/2019 08:53 AM BUN 16 09/20/2017 06:15 AM BUN 16 09/13/2017 06:19 AM BUN 12 11/12/2016 12:55 PM BUN 13 05/07/2015 09:17 AM Lab Results Component Value Date/Time CREAT 0.8 03/05/2024 05:18 AM CREAT 1.0 03/04/2024 06:44 AM CREAT 0.9 03/03/2024 03:24 PM CREAT 0.98 02/07/2024 12:00 AM CREAT 0.8 12/22/2023 11:48 AM CREAT 0.8 12/14/2023 05:53 AM CREAT 0.96 02/07/2023 12:00 AM CREAT 0.69 02/28/2021 12:00 AM CREAT 0.8 11/25/2019 08:53 AM CREAT 0.92 03/21/2019 12:00 AM CREAT 0.85 07/29/2018 12:00 AM CREAT 0.8 09/20/2017 06:15 AM CREAT 0.8 09/13/2017 06:19 AM CREAT 0.9 11/12/2016 12:55 PM CREAT 0.9 05/07/2015 09:17 AM ANTIMICROBIALS GIVEN (last 28 hours) Date/Time Action Medication Dose Rate 03/05/24 0519 New Bag Piperacillin-Tazobactam (Zosyn) 4.5 g in 100 mL NSS ivpb (FOUR hour infusion) 4.5 g 27.5 mL/hr 03/04/24 2322 New Bag Piperacillin-Tazobactam (Zosyn) 4.5 g in 100 mL NSS ivpb (FOUR hour infusion) 4.5 g 27.5 mL/hr 03/04/24 2145 New Bag Vancomycin (Vancocin) 1250 mg in NSS 250 mL ivpb 1,250 mg 191.67 mL/hr 03/04/24 1339 New Bag Piperacillin-Tazobactam (Zosyn) 4.5 g in 100 mL NSS ivpb (FOUR hour infusion) 4.5 g 27.5 mL/hr 03/04/24 0615 New Bag Piperacillin-Tazobactam (Zosyn) 4.5 g in 100 mL NSS ivpb (FOUR hour infusion) 4.5 g 27.5 mL/hr 03/04/24 0445 New Bag Vancomycin (Vancocin) 1750 mg in NSS 500 mL 1,750 mg 258.75 mL/hr Wt Readings from Last 1 Encounters: 03/05/24 (!) 147.1 kg (324 lb 6.4 oz) Levels to date: Lab Results Component Value Date/Time VANCORANDOM 10.9 03/05/2024 05:18 AM VANCORANDOM 10.4 10/29/2023 05:07 AM Impression: Bry Brown Hermilo Lewis. is a/an 48 year old male receiving vancomycin therapy. The pharmacokinetic target for therapy is AUC24,SS (range) 400-600mg/L.hr Assessment and Plan: Taptu Pharmacokinetics Note Drug: Vancomycin Pharmacokinetic target: AUC24 (range) 400-600 mg/L.hr Current regimen: 1250 mg IV every 18 hours Recent measured serum creatinine values: 03/05/2024 05:18 0.8 mg/dL 03/04/2024 06:44 1 mg/dL 03/03/2024 15:24 0.9 mg/dL Assessment: Analysis of the most recent level(s) using MakuCell gives the following patient-specific pharmacokinetic parameters: CL: 7.29 L/hr V: 86.8 L T1/2: 9.45 hours Using these values, the current regimen of Vancomycin 1250 mg IV every 18 hours is predicted to result in a steady-state trough of 5.4 mg/L and AUC24 of 231 mg/L.hr. At this time we recommend a regimen of 1750 mg IV every 12 hours, which is predicted to result in a steady-state trough of 13.1 mg/L and AUC24 of 468 mg/L.hr. Recommendations: - Vancomycin 1750 mg IV every 12 hours - Continue to monitor serum creatinine George Salomon Obtain next vancomycin level 03/06 at 0600. Pharmacy will continue to follow and dose as appropriate by renal function, culture results, infectious disease input, and overall clinical status. Contact the Pharmacy at extension [phone] if there are any questions. George Salomon [facility] * Junior Wylie MD - 03/04/2024 7:54 AM EDT PROGRESS NOTE - Hospitalist [facility] Name:Bry Akhtar Jr. SEX: male AGE: [age] year old Date: 03/04/2024 48 yo M patient with DM type 2, Obesity, COPD ,DAMION, HTN, GERD status post left ankle fusion on 10/20/[address] Camacho at [facility] presented to [facility] ED for evaluation of worsening left ankle pain. Patient reports having the hardware removed by Dr. Camacho at [facility] on 02/04/2024, since then he has had a wound that has been draining blood. Podiatry was consulted SUBJECTIVE: Patient complains of pain in his left ankle- he is unable to walk due to pain. Analgesia not adequate. He is sore in the calf too due to the pain Podiatry was consulted - purulent drainage from the wound noted from ankle joint; MRI read by Podiatry - reveals OM of rearfoot. Case was discussed with Ortho - recommend patient transfer to [facility] where his surgery was performed Spoke with [facility] transfer center to hospitalist service- patient is accepted for transfer by Dr Pruitt OBJECTIVE: VITALS: BP 110/43 | Pulse 103 | Temp 37.3 C (99.1 F) (Temporal Artery) | Resp 20 | Ht 1.905 m (6' 3") |Wt (!) 148.6 kg (327 lb 11.2 oz) | SpO2 95% | BMI 40.96 kg/m | BSA 2.8 m Intake/Output Summary (Last 24 hours) at 03/04/2024 0754 Last data filed at 03/04/2024 0611 Gross per 24 hour Intake 2300.54 ml Output 2100 ml Net 200.54 ml PHYSICAL EXAMINATION: Constitutional: alert , awake , no acute distress. Eyes: PERRLA, conjunctiva no pallor, sclera anicteric. CV: normal rate and rhythm, no murmur, gallops or rub. Peripheral pulses normal. Lungs: Clear to auscultate bilateral, no wheezing, rhonchi, crackles. Abdomen: Soft, non tender non distended, BS+, No organomegaly. Extremities: left ankle blake wrapped-extreme tenderness around ankle joint, unable to flex the joint Neuro: alert, oriented x3, no focal deficits Psych: normal mood and affect. LABS: Lab results within last 7 days (see chart for full results) Units 03/04/24 0644 03/03/24 1524 HGB g/dL 9.6* 11.1* HCT % 30.2* 35.3* WBC K/uL 10.70 10.46 PLT K/uL 277 349 Lab results within last 7 days (see chart for full results) Units 03/04/24 0644 03/03/24 1524 Sodium mmol/L 137 136 Potassium mmol/L 4.5 4.8 Chloride mmol/L 99 96* CO2 mmol/L 26 25 BUN mg/dL 22* 22* Creatinine mg/dL 1.0 0.9 IMPRESSION AND PLAN: Principal Problem: Cellulitis of left lower extremity Active Problems: Morbid obesity (HCC) Type 2 diabetes mellitus with hemoglobin A1c goal of less than 7.0% (HCC) Diabetic polyneuropathy associated with type 2 diabetes mellitus (HCC) Hyperlipidemia with target LDL less than 70 Tobacco use disorder Chronic respiratory failure with hypercapnia (HCC) Obstructive sleep apnea Restrictive lung disease secondary to obesity COPD, moderate (HCC) Charcot ankle, left S/P hardware removal Ankle wound, left, initial encounter Resolved Problems: * No resolved hospital problems. * Plan: - Continue iv vanc, zosyn - MRI left ankle read pending - CD needs to be sent along with patient to [facility] - Podiatry consult appreciated - Patient is accepted to transfer to [facility], awaiting bed availability, transfer papers signed Diet : HHD Activity :OOB DVT Prophylaxis: heparin SQ 55 minutes were spent in the care of this patient. More than half of my time was spent counseling the patient or family. This chart was completed in part utilizing [employer] Speech Voice Recognition Software. Grammatical errors, random word insertions, prounoun erros, and incomplete sentences are an occasional consequence of this system due to software limitations, ambient noise, and hardware issues. Any formal questions or concerns about the content, text, or information contained within the body of this dictation should be directly addressed to the provider for clarification. Note: To contact a physician responsible for this patients hospital care, please call [employer] [phone]. * Tom Hunt, [facility] - 03/03/2024 7:33 PM EDT PHARMACY PHARMACOKINETIC CONSULT [address] [address] Name: Bry Akhtar JrZach Location: [facility] [id number] Date: 03/03/2024 Time: 7:32 PM Requesting Service: Hospitalist Bacteria being treated: Empiric Source of infection: SSTI Medication(s) being managed: Vancomycin Pharmacokinetic calculations will be performed utilizing Gogobot software. Lab information: Lab Results Component Value Date/Time WBC 10.46 03/03/2024 03:24 PM WBC 8.36 02/11/2024 10:28 AM WBC 7.72 12/22/2023 11:48 AM WBC 5.98 12/14/2023 05:53 AM WBC 7.50 12/13/2023 04:39 AM WBC 6.86 11/25/2019 08:53 AM WBC 6.87 07/26/2018 02:45 PM WBC 6.63 09/20/2017 06:15 AM WBC 7.77 09/13/2017 06:19 AM WBC 8.91 09/02/2009 12:17 PM Lab Results Component Value Date/Time BUN 22 (H) 03/03/2024 03:24 PM BUN 22 (H) 01/14/2024 10:59 AM BUN 17 12/22/2023 11:48 AM BUN 10 12/14/2023 05:53 AM BUN 19 12/13/2023 04:39 AM BUN 12 11/25/2019 08:53 AM BUN 16 09/20/2017 06:15 AM BUN 16 09/13/2017 06:19 AM BUN 12 11/12/2016 12:55 PM BUN 13 05/07/2015 09:17 AM Lab Results Component Value Date/Time CREAT 0.9 03/03/2024 03:24 PM CREAT 0.98 02/07/2024 12:00 AM CREAT 0.8 12/22/2023 11:48 AM CREAT 0.8 12/14/2023 05:53 AM CREAT 0.8 12/13/2023 04:39 AM CREAT 0.9 12/12/2023 02:08 PM CREAT 0.96 02/07/2023 12:00 AM CREAT 0.69 02/28/2021 12:00 AM CREAT 0.8 11/25/2019 08:53 AM CREAT 0.92 03/21/2019 12:00 AM CREAT 0.85 07/29/2018 12:00 AM CREAT 0.8 09/20/2017 06:15 AM CREAT 0.8 09/13/2017 06:19 AM CREAT 0.9 11/12/2016 12:55 PM CREAT 0.9 05/07/2015 09:17 AM ANTIMICROBIALS GIVEN (last 28 hours) Date/Time Action Medication Dose Rate 03/03/24 1845 New Bag vancomycin (Vancocin) 2500 mg in NSS 500 mL ivpb 2,500 mg 210 mL/hr 03/03/24 1724 New Bag Piperacillin-Tazobactam (Zosyn) 4.5 g in 100 mL NSS ivpb (HALF hour infusion) 4.5 g 220 mL/hr Wt Readings from Last 1 Encounters: 03/03/24 (!) 154.2 kg (340 lb) Levels to date: Lab Results Component Value Date/Time VANCORANDOM 10.4 10/29/2023 05:07 AM Impression: Bry Akhtar Jr. is a/an 48 year old male receiving vancomycin therapy. The pharmacokinetic target for therapy is AUC24,SS (range) 400-600mg/L.hr, Body mass index is 42.5 kg/m. Assessment and Plan: Analysis using SupernovaRX gives the following patient-specific pharmacokinetic parameters: CL: 6.11 L/hr V: 82.8 L T1/2: 10 hours At this time we recommend a regimen of 1750 mg IV every 12 hours, which is predicted to result in asteady-state trough of 16.5 mg/L and AUC24 of 559 mg/L.hr. Recommendations: - Vancomycin 1750 mg IV every 12 hours - Obtain Vancomycin level peak at 03/04 2200 and trough at 03/05 600 - Continue to monitor serum creatinine Pharmacy will continue to follow and dose as appropriate by renal function, culture results, infectious disease input, and overall clinical status. Contact the Pharmacy at extension [phone] if there are any questions. Tom Hunt RPh documented in this encounter H&P Notes * Sunni Alcantara PA-C - 03/03/2024 6:00 PM EDT Images from the original note were not included. [facility] 13/X Hospital Medicine - H&P History obtained from: Patient, patient's family, and ED provider. PRESENTING PROBLEM: Worsening left ankle pain HPI: Bry Akhtar Jr is a 48-year-old male with a past medical history of type 2 diabetes, hypertension, GERD, dyslipidemia, IBS, gastroparesis, tobacco use disorder, sleep apnea, restrictive lung disease due to obesity, left Charcot arthropathy, status post left ankle fusion on 10/20/[address] Camacho at [facility] presented to [facility] ED for evaluation of worsening left ankle pain. Patient reports having the hardware removed by Dr. Camacho at [facility] on 02/04/2024, since then he has had a wound that has been draining blood. Reports the pain in his left ankle is worsening and the swelling and redness is getting worse. Denies fevers, chills, nausea, vomiting, decreased appetite. Patient was seen at an outside facility ED yesterday, they consulted Dr. Camacho who recommended starting clindamycin and he will follow up with them on Wednesday. Patient continued to have worsening pain and worsening bleeding from his wound which prompted him to come to [facility] ED today. Patient smokes 1 pack per day of cigarettes. He does not drink alcohol. Patient is to wear CPAP forOSA but does not. He does not wear home oxygen. I spoke with the ED provider, ED course included: patient is tachycardic in the ED, otherwise vitals are stable. Labs reveal an elevated CRP of 47. Blood culture is pending and patient started oral vancomycin and Zosyn. Podiatry was consulted via secure tiger text by ED provider. Recommends starting vanc and Zosyn and admitting patient to the hospital and obtaining an MRI with and without contrast of the left ankle. Podiatry will see the patient here in the hospital tomorrow. Subjective 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 Current use of insulin ([facility]) 09/13/2017 DDD (degenerative disc disease), cervical 07/12/2019 Diabetes mellitus type 2, insulin dependent ([facility]) 07/05/2017 Diabetic polyneuropathy associated with type 2 diabetes mellitus ([facility]) 07/24/2016 Displacement of lumbar intervertebral disc without myelopathy DM type 2, goal: symptom mgmt ([facility]) 09/13/2017 DM type 2, not at goal ([facility]) Dyslipidemia, goal LDL below 70 07/24/2016 Gastroesophageal reflux disease without esophagitis 05/07/2020 Gastroparesis 08/27/2015 GERD (gastroesophageal reflux disease) History of DVT (deep vein thrombosis) 04/19/2019 HTN, goal below 140/90 12/23/2015 Per HTN Protocol #27. HTN, goal: symptom mgmt only 09/13/2017 IBS (irritable bowel syndrome) 08/27/2015 Intellectual disability 10/25/2019 Major depressive disorder, recurrent, severe without psychotic features ([facility]) 12/22/2016 Obesity, Class II, BMI 35-39.9, isolated (see actual BMI) 04/19/2019 OTHER osseochondrosis ankle Primary localized osteoarthrosis, lower leg Sleep apnea, obstructive Tobacco use disorder 12/22/2016 Type 2 diabetes mellitus with hemoglobin A1c goal of less than 8.0% ([facility]) 07/05/2017 Past Surgical History: Procedure Laterality Date TOMAS HUTSONW/ROTATOR CUFF Right 12/01/2019 ARTHROSCOPY SHOULDER ROTATOR CUFF performed by Judith Condon DO at [facility] COLONOSCOPY, DIAGNOSTIC (RECTUM) 04/18/2015 adenomatous polyp, repeat 5 yrs/[facility] COLONOSCOPY, DIAGNOSTIC (RECTUM) 04/15/2023 poor prep, repeat / [facility] COLONOSCOPY, DIAGNOSTIC (RECTUM) N/A 02/22/2024 normal/recall 5 years/COLONOSCOPY FLEXIBLE PROXIMAL DIAGNOSTIC performed by Marceal Del Valle MD at OR [facility] EGD, FLEXIBLE, DIAGNOSTIC 10/17/2014 mild-mod inflammation, repeat 1-2 mo/[facility] EGD, FLEXIBLE, DIAGNOSTIC 04/17/2015 normal bx/inpt [facility] EGD, FLEXIBLE, DIAGNOSTIC 05/08/2019 reflux esophagitis, gastritis, duodenitis, repeat 6 wks / [facility] EGD, FLEXIBLE, DIAGNOSTIC 08/18/2019 normal-EGD/[place] EGD, FLEXIBLE, DIAGNOSTIC N/A 05/02/2020 biopsies normal/EGD EGD, FLEXIBLE, DIAGNOSTIC N/A 02/22/2024 antral gastritis/biopsies normal/ESOPHAGOGASTRODUODENOSCOPY (EGD), FLEXIBLE, TRANSORAL, DIAGNOSTIC performed by Marcela Del Valle MD at OR [facility] INJECT DX/THER SUBSTANCE INTERLAMINAR CERVICAL/THORACIC W IMAGE GUIDE 08/17/2019 INJECTION SPINE LUMBAR CERVICAL OR THORACIC performed by Dario Nails DO at [facility] KNEE ARTHROSCOPY, DIAGNOSTIC l knee REMOVAL OF TONSILS, UNDER AGE 10 SHOULDER ARTHROSCOPY, BICEPS TENODESIS Right 12/01/2019 ARTHROSCOPY SHOULDER BICEP TENODESIS performed by Judith Condon DO at [facility] SHOULDER ARTHROSCOPY/DECOMPRESSION Right 12/01/2019 ARTHROSCOPY SHOULDER SUBACROMIAL DECOMPRESSION performed by Judith Condon DO at [facility] Family History Problem Relation Age of Onset Diabetes Mother Endocrine Disorder Mother Dyslipidemia Hypertension Mother Hypertension Father COPD Father age 55 Arthritis Sister No Known Problems Brother Diabetes Aunt (Unspecified) Diabetes Uncle (Unspecified) Diabetes Grandmother (Maternal) Diabetes Grandmother (Paternal) As above otherwise non-contributory Social History Tobacco Use Smoking status: Every Day Current packs/day: 1.50 Average packs/day: 1.5 packs/day for 33.0 years (49.5 ttl pk-yrs) Types: Cigarettes Smokeless tobacco: Never Tobacco comments: 01/27/23 currently smoking 10-15 cig/day Vaping Use Vaping Use: Never used Substance Use Topics Alcohol use: Yes Comment: 1 beer in the past two years Drug use: Not Currently Types: Marijuana Comment: smoked over 1-2 years ago (approx 2019) MEDICATIONS: Prior to admission medications have been reviewed. ALLERGIES: Nsaids, Ceclor [cefaclor], and Jardiance [empagliflozin] ROS: Review of Systems Constitutional: Negative for fever. Respiratory: Negative for shortness of breath. Cardiovascular: Negative for chest pain. Gastrointestinal: Negative for abdominal pain. Genitourinary: Negative for difficulty urinating. Musculoskeletal: Positive for arthralgias. Skin: Positive for wound. Neurological: Negative for dizziness. Objective Physical Exam Most Recent Vital Signs: BP: 141 mmHg/58 mmHg (03/03/24 1715) Pulse: 114 (03/03/24 1715) Temp: 36.22 C (03/03/24 1431) Temp Summary: Temp Min: 36.2 C (97.2 F) Max: 36.2 C (97.2 F) SpO2: 100 % (03/03/24 1431) O2 flow rate: Supplemental O2 Delivery: Physical Exam Vitals and nursing note reviewed. Constitutional: Appearance: Normal appearance. He is obese. He is not ill-appearing. HENT: Head: Normocephalic and atraumatic. Mouth/Throat: Mouth: Mucous membranes are dry. Cardiovascular: Rate and Rhythm: Normal rate and regular rhythm. Pulmonary: Effort: Pulmonary effort is normal. No respiratory distress. Breath sounds: Normal breath sounds. No wheezing or rhonchi. Abdominal: General: Abdomen is flat. Bowel sounds are normal. Palpations: Abdomen is soft. Tenderness: There is no abdominal tenderness. Musculoskeletal: Right lower leg: No edema. Left lower leg: No edema. Skin: General: Skin is warm and dry. Capillary Refill: Capillary refill takes less than 2 seconds. Comments: Erythema and swelling of the left ankle on the medial aspect. Neurological: General: No focal deficit present. Mental Status: He is alert and oriented to person, place, and time. Peripheral Line Right Arm 20 Gauge (Active) Number of days: 0 STUDIES: I personally reviewed previous medical records. Labs and other studies personally reviewed by me with pertinent findings noted below: Results for orders placed or performed during the hospital encounter of 03/03/24 COMPREHENSIVE METABOLIC PANEL Result Value Ref Range BUN 22 (H) 6 - 20 mg/dL Creatinine 0.9 0.6 - 1.2 mg/dL Estimated Glomerular Filtration Rate >90 >=60 mL/min Sodium 136 135 - 146 mmol/L Potassium 4.8 3.5 - 5.1 mmol/L Chloride 96 (L) 98 - 107 mmol/L CO2 25 22 - 32 mmol/L Anion Gap 15 7 - 15 mmol/L Glucose 140 (H) 70 - 120 mg/dL Albumin 4.1 3.8 - 5.0 g/dL AST 16 10 - 50 U/L Alkaline Phosphatase 116 35 - 130 U/L Bilirubin, Total 0.3 <=1.2 mg/dL Calcium 10.1 8.4 - 10.2 mg/dL Protein 7.5 6.0 - 8.3 g/dL ALT 14 10 - 50 U/L CRP (INFLAMMATORY MARKER) Result Value Ref Range CRP (Inflammatory Marker) 47 (H) <=5 mg/L PROCALCITONIN Result Value Ref Range Procalcitonin 0.08 <0.10 ng/mL CBC Result Value Ref Range WBC 10.46 4.00 - 10.80 K/uL RBC 4.30 4.50 - 5.25 M/uL HGB 11.1 (L) 14.0 - 16.8 g/dL HCT 35.3 (L) 40.0 - 48.4 % MCV 82.1 82.0 - 99.5 fL MCH 25.8 27.0 - 34.0 pg MCHC 31.4 32.0 - 36.0 g/dL RDW 15.0 11.5 - 15.5 % PLT 349 140 - 400 K/uL MPV 8.6 6.6 - 11.1 fL nRBCs 0 <=0 /100 WBCs DIFFERENTIAL, AUTOMATED Result Value Ref Range WBC 10.46 4.00 - 10.80 K/uL Neutrophils % 62.5 40.0 - 75.0 % Lymphocytes % 16.3 (L) 18.0 - 42.0 % Monocytes % 14.0 (H) 1.0 - 11.0 % Eosinophils % 4.3 0.0 - 6.0 % Basophils % 0.9 0.0 - 2.0 % Immature Granulocytes % 2.0 0.0 - 2.0 % Absolute Neutrophils 6.54 1.80 - 7.70 K/uL Absolute Lymphocytes 1.71 1.00 - 4.80 K/ul Absolute Monocytes 1.46 (H) 0.00 - 1.10 K/uL Absolute Eosinophils 0.45 0.00 - 0.70 K/uL Absolute Basophils 0.09 0.00 - 0.20 K/uL Absolute Immature Granulocytes 0.21 (H) 0.00 - 0.20 K/uL *Note: Due to a large number of results and/or encounters for the requested time period, some results have not been displayed. A complete set of results can be found in Results Review. XR CHEST 1 VIEW Final Result PROCEDURE INFORMATION: Exam: XR Chest Exam date and time: 03/03/2024 5:32 PM Age: 48 years old Clinical indication: Other: Pre-op. No active chest complaints. TECHNIQUE: Imaging protocol: Radiologic exam of the chest. Views: 1 view. COMPARISON: CT CHEST WO(Adult) 02/09/2024 10:25 AM FINDINGS: Lungs: Unremarkable. No consolidation. Pleural spaces: Unremarkable. No pleural effusion. No pneumothorax. Heart/Mediastinum: Unremarkable. No cardiomegaly. Bones/joints: Unremarkable. IMPRESSION IMPRESSION: No acute findings. THIS DOCUMENT HAS BEEN ELECTRONICALLY SIGNED BY MAMTA GROSS MD XR FOOT 3 OR MORE VIEWS Final Result PROCEDURE INFORMATION: Exam: XR Left Foot Exam date and time: 03/03/2024 3:48 PM Age: 48 years old Clinical indication: Other: Progressively worsening bleeding, pain, redness, swelling since hardward removal surgery 01/2024; HX charcot arthropathy TECHNIQUE: Imaging protocol: Radiologic exam of the left foot. Views: 3 or more views. COMPARISON: CTA ABD AORTA/FEM RUNOFF W CONTRAST 10/30/2023 2:54 AM FINDINGS: Bones/joints: Destructive changes in the ankle joint with multiple erosions and debris surrounding the joint and joint space narrowing. Consistent with the history of Charcot arthropathy. Bony defect in the calcaneus. Soft tissues: Soft tissue swelling. IMPRESSION IMPRESSION: Destructive changes in the ankle joint with multiple erosions and debris surrounding the joint and joint space narrowing. Consistent with the history of Charcot arthropathy. THIS DOCUMENT HAS BEEN ELECTRONICALLY SIGNED BY MATMA GROSS MD MRI FOOT LEFT W WO CONTRAST (Results Pending) I personally viewed today's EKG, my interpretation is as follows: Sinus tachycardia Assessment and Plan IMPRESSION: Principal Problem: Cellulitis of left lower extremity Active Problems: Morbid obesity (HCC) Type 2 diabetes mellitus with hemoglobin A1c goal of less than 7.0% (HCC) Diabetic polyneuropathy associated with type 2 diabetes mellitus (HCC) Hyperlipidemia with target LDL less than 70 Tobacco use disorder Chronic respiratory failure with hypercapnia (HCC) Obstructive sleep apnea Restrictive lung disease secondary to obesity COPD, moderate (HCC) Charcot ankle, left S/P hardware removal Ankle wound, left, initial encounter Resolved Problems: * No resolved hospital problems. * ASSESSMENT/PLAN: Will admit patient to telemetry for cellulitis of the left lower extremity with a postop wound infection. Questionable osteomyelitis on x-ray. - Continue vancomycin and Zosyn - blood cultures pending - MRI of the left ankle with and without contrast ordered and pending - podiatry consult placed. - Hold home diuretics and losartan - isolyte 100 hour for 10 hours - hold home metformin and Actos - Accu-Cheks and sliding scale coverage with meals and HS as indicated per protocol - Resume all other home medications - check CBC, BMP, Mag and phos in a.m. - keep NPO after midnight until evaluated by Podiatry. - nicotine patch daily for nicotine withdrawal PHARMACOLOGIC VTE PROPHYLAXIS: This patient does not have an active medication from one of the medication groupers. CODE STATUS: Full Code EXPECTED DISCHARGE DATE: No information available I reviewed today's results, along with the treatment plan with the patient and family. All questions answered and patient agreeable with the above plan. I spent a total of 65 minutes coordinating, documenting, and providing care for this patient excluding time spent in the performance of separately billed services or time spent by another provider/QHP. Sunni Alcantara PA-C Associated attestation - Pb Garduno MD - 03/04/2024 10:05 AM EDT I have reviewed the advanced practitioner's documentation on the date of service referenced in note, and I agree with, and take responsibility for the plan of care. I spent a total of 20 minutes coordinating, documenting, and providing care for this patient excluding time spent in the performance of separately billed services or time spent by another provider/QHP. documented in this encounter Consult Notes * Robina Rosales DPM - 03/04/2024 9:22 AM EDTAssociated Order(s): PODIATRY CONSULT IP CONSULT - Podiatry [facility] [id number] Name: Bry Akhtar Jr. Location: [facility] [id number]-[id number]/D Date: 03/04/2024 Time: 9:23 AM REQUESTING SERVICE: Medicine REASON FOR CONSULT: Diabetic infection Bry Akhtar Jr. is a 48 year old male seen for evaluation and treatment. Patient presents with chief complaint of pain following MEREDITH at an outside hospital (DOS 02/13). HPI: Pt was sent to the ED from PCP for pain and possible infection of the foot/ankle following hardwareremoval at an outside hospital (02/13). Pt was last seen 02/20 by his surgeon with concerns of acute charcot of the ankle. From chart review he was to by [facility] and would follow up on Wednesday however he washaving severe pain not controlled by PO medication and was sent to the ED. From the pt- the initial surgery for his ankle was Oct 2023. He subsequently had the hardware removed 10 weeks later. Since that time he has been dealing with bleeding and pain. It sounds like he hasbeen casted/splinted several times. However he now has a wound that has developed on the left medial ankle that he states has only bene present for a couple of weeks. PAST MEDICAL HISTORY: 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 Current use of insulin ([facility]) 09/13/2017 DDD (degenerative disc disease), cervical 07/12/2019 Diabetes mellitus type 2, insulin dependent (HCC) 07/05/2017 Diabetic polyneuropathy associated with type 2 diabetes mellitus (HCC) 07/24/2016 Displacement of lumbar intervertebral disc without myelopathy DM type 2, goal: symptom mgmt ([facility]) 09/13/2017 DM type 2, not at goal ([facility]) Dyslipidemia, goal LDL below 70 07/24/2016 Gastroesophageal reflux disease without esophagitis 05/07/2020 Gastroparesis 08/27/2015 GERD (gastroesophageal reflux disease) History of DVT (deep vein thrombosis) 04/19/2019 HTN, goal below 140/90 12/23/2015 Per HTN Protocol #27. HTN, goal: symptom mgmt only 09/13/2017 IBS (irritable bowel syndrome) 08/27/2015 Intellectual disability 10/25/2019 Major depressive disorder, recurrent, severe without psychotic features ([facility]) 12/22/2016 Obesity, Class II, BMI 35-39.9, isolated (see actual BMI) 04/19/2019 OTHER osseochondrosis ankle Primary localized osteoarthrosis, lower leg Sleep apnea, obstructive Tobacco use disorder 12/22/2016 Type 2 diabetes mellitus with hemoglobin A1c goal of less than 8.0% ([facility]) 07/05/2017 PAST SURGICAL HISTORY: Past Surgical History: Procedure Laterality Date ARTHO,TOMAS,W/ROTATOR CUFF Right 12/01/2019 ARTHROSCOPY SHOULDER ROTATOR CUFF performed by Judith Condon DO at [facility] COLONOSCOPY, DIAGNOSTIC (RECTUM) 04/18/2015 adenomatous polyp, repeat 5 yrs/[facility] COLONOSCOPY, DIAGNOSTIC (RECTUM) 04/15/2023 poor prep, repeat / [facility] COLONOSCOPY, DIAGNOSTIC (RECTUM) N/A 02/22/2024 normal/recall 5 years/COLONOSCOPY FLEXIBLE PROXIMAL DIAGNOSTIC performed by Marcela Del Valle MD at OR [facility] EGD, FLEXIBLE, DIAGNOSTIC 10/17/2014 mild-mod inflammation, repeat 1-2 mo/[facility] EGD, FLEXIBLE, DIAGNOSTIC 04/17/2015 normal bx/inpt [facility] EGD, FLEXIBLE, DIAGNOSTIC 05/08/2019 reflux esophagitis, gastritis, duodenitis, repeat 6 wks / [facility] EGD, FLEXIBLE, DIAGNOSTIC 08/18/2019 normal-EGD/DC EGD, FLEXIBLE, DIAGNOSTIC N/A 05/02/2020 biopsies normal/EGD EGD, FLEXIBLE, DIAGNOSTIC N/A 02/22/2024 antral gastritis/biopsies normal/ESOPHAGOGASTRODUODENOSCOPY (EGD), FLEXIBLE, TRANSORAL, DIAGNOSTIC performed by Marcela Del Valle MD at OR [facility] INJECT DX/THER SUBSTANCE INTERLAMINAR CERVICAL/THORACIC W IMAGE GUIDE 08/17/2019 INJECTION SPINE LUMBAR CERVICAL OR THORACIC performed by Dario Burden Cousins, DO at OR [facility] KNEE ARTHROSCOPY, DIAGNOSTIC l knee REMOVAL OF TONSILS, UNDER AGE 10 SHOULDER ARTHROSCOPY, BICEPS TENODESIS Right 12/01/2019 ARTHROSCOPY SHOULDER BICEP TENODESIS performed by Judith Condon DO at [facility] SHOULDER ARTHROSCOPY/DECOMPRESSION Right 12/01/2019 ARTHROSCOPY SHOULDER SUBACROMIAL DECOMPRESSION performed by Judith Condon DO at [facility] FAMILY HISTORY: Family History Problem Relation Age of Onset Diabetes Mother Endocrine Disorder Mother Dyslipidemia Hypertension Mother Hypertension Father COPD Father age 55 Arthritis Sister No Known Problems Brother Diabetes Aunt (Unspecified) Diabetes Uncle (Unspecified) Diabetes Grandmother (Maternal) Diabetes Grandmother (Paternal) SOCIAL HISTORY: Social History Tobacco Use Smoking status: Every Day Current packs/day: 1.50 Average packs/day: 1.5 packs/day for 33.0 years (49.5 ttl pk-yrs) Types: Cigarettes Smokeless tobacco: Never Tobacco comments: 01/27/23 currently smoking 10-15 cig/day Vaping Use Vaping Use: Never used Substance Use Topics Alcohol use: Yes Comment: 1 beer in the past two years Drug use: Not Currently Types: Marijuana Comment: smoked over 1-2 years ago (approx 2019) ALLERGIES: Nsaids, Ceclor [cefaclor], and Jardiance [empagliflozin] ROS: Constitutional: Negative for fever, +activity change Respiratory: Negative for shortness of breath. Cardiovascular: Negative for chest pain and +leg swelling. Gastrointestinal: Negative for nausea, vomiting, abdominal pain and constipation. Musculoskeletal: Negative for joint swelling, +arthralgias and gait problem. Skin: Negative for color change, rash and +wound. Neurological: Negative for dizziness, weakness and +numbness. EXAM: Constitutional Appearance: clean Musculoskeletal Unstable LEFT ankle with noted wound medially. There is warmth and erythema of the extremity. Vascular Abnormalities: Diffuse pitting edema of the LLE but more localized over the ankle. Respiratory Respiratory effort within normal limits Integumentary Abnormalities: Medial ankle wound (0.3X0.3cm) that probes across the ankle with noted bogginess andactive purulent drainage. There is erythema and edema of that ankle. There is no active drainage appreciated. There are several well healed surgical incisions to the foot/ankle. Psychiatric Judgment/insight intact mood/effect within normal limits Neurological Abnormalities: LOPS Labs: CBC Results: Results for orders placed or performed during the hospital encounter of 03/03/24 CBC Result Value Ref Range WBC 10.70 4.00 - 10.80 K/uL RBC 3.68 4.50 - 5.25 M/uL HGB 9.6 (L) 14.0 - 16.8 g/dL HCT 30.2 (L) 40.0 - 48.4 % MCV 82.1 82.0 - 99.5 fL MCH 26.1 27.0 - 34.0 pg MCHC 31.8 32.0 - 36.0 g/dL RDW 15.1 11.5 - 15.5 % PLT 277 140 - 400 K/uL MPV 8.7 6.6 - 11.1 fL nRBCs 0 <=0 /100 WBCs Imaging: Xrays: Noted destruction of the ankle and subtalar joint. MRI: MRI is pending final read but noted edema of the talus and calcaneus with dislocation that would suggest OM. ASSESSMENT: Diabetic ankle infection Suspect Osteomyelitis of the talus and calcaneus. PLAN: - Pt seen and evaluated - Extensive chart reviewed (>20minutes) - Imaging and labs were reviewed - At bedside there was active purulent drainage from the wound- I did express about 5ccs of dishwater colored fluid from the ankle. - MRI suggestive of OM of the rearfoot although final read is not back yet. - I did discuss that even in the event of acute charcot vs infection- I do not feel that this is a salvageable limb and that he would most benefit from a BKA. - I did discuss this case briefly with the Ortho physician communication engineer who recommended the pt be transferred to [facility] as this is where his surgery was performed - There is no podiatric intervention warranted at this time - Dry dressing applied. - Pt should continue IV abx for now - NWB to the LLE - Please call with any questions or concerns. - Bedside noted active purulent drainage documented in this encounter Nursing Notes * Emily Virgen RN - 03/06/2024 2:10 PM EDT 0905 Pt A&Ox4, VS within pt's NL, c/o pain, see flowsheets and MAR. Asmt complete, med pass to be completed by SN. Call hoffman within reach. 1020 LLE dressing changed d/t excessive drainage soaking BLAKE bandage. No instructions provided, flushed with saline, dressed with vaseline, dry gauze squares, gauze roll and BLAKE wrap. Pt tolerated. 1425 Pt left floor at 1410 to be transported by [facility] to [facility]. Report called and given to Christin Grace RN. * Lisa Ladd RN - 03/04/2024 4:53 AM EDT Dual Licensed Skin Assessment completed by Lisa Ladd RN and Elaina Sams rN. The patient is/has a N/A Skin Breakdown (includes non blanchable erythema): No documented in this encounter ED Notes * Toni Hawthorne DO - 03/03/2024 3:08 PM EDT Images from the original note were not included. HISTORY OF PRESENT ILLNESS Bry Akhtar Jr. is a 48 year old male who presents to the ED for evaluation of Wound Recheck. The patient was seen at 03/03/24 1443. Patient s/p left ankle hardware removal, left tibio calcaneal arthrodesis in January 2024. Operation performed by Dr. Camacho, Podiatry at [facility]. Has had several f/u with Dr. Camacho since then. Reports consistent bleeding/oozing from wound as well as progressively worsening pain, swelling, redness and difficulty with movement secondary to pain. Patient has a f/u with Dr. Camacho scheduledfor Wednesday but was advised by PCP to go to ED for evaluation of symptoms. Has been taking tramadol without relief of pain. Last tramadol dose this morning. 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 Discharged with oxycodone per Care Everywhere.). Previous treatment in the ED includes Wound cleansing or irrigation. There has been no treatment since the wound repair. There has been bloody discharge from the wound. The redness has worsened. The swelling has worsened. The pain has worsened. There is difficulty moving the extremity or digit due to pain. Patient Active Problem List Diagnosis Code Morbid obesity ([facility]) E66.01 Type 2 diabetes mellitus with hemoglobin A1c goal of less than 7.0% ([facility]) E11.9 Gastroparesis K31.84 IBS (irritable bowel syndrome) K58.9 Diabetic polyneuropathy associated with type 2 diabetes mellitus ([facility]) E11.42 Hyperlipidemia with target LDL less than 70 E78.5 Tobacco use disorder F17.200 History of DVT (deep vein thrombosis) Z86.718 Combined arterial insufficiency and corporo-venous occlusive erectile dysfunction N52.03 DDD (degenerative disc disease), cervical M50.30 Cervical spinal stenosis M48.02 Gastroesophageal reflux disease without esophagitis K21.9 DM type 2 causing vascular disease ([facility]) E11.59 Precordial pain R07.2 Chronic respiratory failure with hypercapnia ([facility]) J96.12 Lumbar disc herniation M51.26 Obstructive sleep apnea G47.33 Restrictive lung disease secondary to obesity J98.4, E66.9 Neuropathy G62.9 COPD, moderate ([facility]) J44.9 Cortical age-related cataract, right eye H25.011 Nausea and vomiting R11.2 Generalized abdominal pain R10.84 Constipation K59.00 Charcot ankle, left M14.672 S/P ankle fusion Z98.1 Intractable nausea and vomiting R11.2 Hypertensive emergency I16.1 Elevated troponin R79.89 Fall W19.XXXA History of diabetic ulcer of foot Z86.31 Review of Systems Constitutional: Negative for activity change, appetite change, chills and fever. The patient's allergies, past history, and medications were reviewed. PHYSICAL EXAM Initial Vitals (see all): BP 167/67 | Pulse 110 | Resp 20 | Temp 97.2 | O2 100 %Weight 154.22 kg | Height 190.5 cm | BMI 42.5kg/m2 Initial Pain Assessment (see all): 10 (severe pain)/10 ([facility] Adult Scale 0-10) Physical Exam Vitals and nursing note reviewed. Constitutional: Appearance: He is obese. Comments: Appears uncomfortable, requested pain medication several times during initial evaluation Cardiovascular: Rate and Rhythm: Regular rhythm. Tachycardia present. Pulses: Normal pulses. Heart sounds: Normal heart sounds. Pulmonary: Effort: Pulmonary effort is normal. Breath sounds: Normal breath sounds. Abdominal: General: There is no distension. Palpations: Abdomen is soft. Tenderness: There is no abdominal tenderness. Musculoskeletal: General: Swelling and tenderness present. Left lower leg: Edema present. Skin: General: Skin is warm and dry. Neurological: General: No focal deficit present. Mental Status: He is alert and oriented to person, place, and time. PROCEDURES AND TREATMENTS ED Orders | ED Results MEDICAL DECISION MAKING Nursing notes and vital signs were reviewed. ED Course as of 03/03/241755March 03, 2024 1626 XR Foot 3 or more views Patient re-evaluated. No change in pain s/p oxycodone. Will order another oxy 5 mg and tylenol 975 mg. [SH] 1725 Contacted Podiatry On-Call. Advised IV abx (zosyn, vancomycin) and MRI foot. Will round on patient tomorrow morning. Discussed with hospitalist on-call, requested blood cultures, cxr, EKG [SH] 1726 Patient re-evaluated. Discussed current lab and imaging results. Discussed admission, patient and family agreeable, stating patient has been unable to bear weight due to pain so worried about going home. [] ED Course User Index [SH] Jolene Carranza, Differential Diagnoses Based on my history, physical exam, and evaluation, the differential includes, but is not limited, to the following diagnoses: abscess, cellulitis and postoperative complications. Based on my history, physical exam, and evaluation, I do not think the patient has the following diagnoses: foreign body. Amount and/or Complexity of Data Reviewed Independent Historian: spouse External Data Reviewed: labs and notes. Details: Reviewed CareEverywhere documentation from [facility] ED visit last night, no leukocytosis at that time. No imaging seems to have been performed at that time. Patient was discharged with oxycodone, he had not been able to pick it up. PDMP reviewed, consistent with reported history. Also reviewedpodiatry office visits from [facility]. Labs: ordered. Radiology: ordered. Decision-making details documented in ED Course. ECG/medicine tests: ordered. Risk OTC drugs. Prescription drug management. Decision regarding hospitalization. Clinical Impressions Tachycardia Charcot's arthropathy Post-operative infection Disposition Admitted. I discussed the management of this patient with the admitting provider and I made a decision to admit the patient. Admission Order Ordered Status . 03/03/24 1756 Admit for Inpatient Services (incl ZPO) ONCE Ordered Toni Hawthorne was the attending physician who supervised the care of this patient. Jolene Carranza DO ATTENDING ATTESTATION I have seen and examined this patient on the 03/03/2024 visit. I have discussed the patient's management with the provider listed above and agree with the note, findings, and plan of care. * Abby Woody RN - 03/03/2024 2:28 PM EDT Patient explains that he had surgery on his left foot February 03 and is now having opening of the wound and excessive bleeding with "bubbles". Hs of DM and charcot aretha tooth disease. Started on cefdinir yesterday. documented in this encounter Miscellaneous Notes * Care Plan - Sam Holley RN - 03/06/2024 5:36 AM EDT Clinical Goal(s): Pt. will have pain less than 5 this shift (03/05/241939) Possible barriers to meeting goal(s)/advancing plan of care: Pt. Disease process Stability of the patient: Moderately stable - low risk of patient condition declining or worsening Summary regarding today's goal(s): Not Met: Pt. Had pain rated 8/10 this shift Recommendations: Keep monitoring pt. Pain and give medication per mar * Care Plan - Sam Holley RN - 03/05/2024 5:30 AM EDT Clinical Goal(s): Pt. will report pain less than 5 this shift (03/04/242212) Possible barriers to meeting goal(s)/advancing plan of care: Pt. LLE infection Stability of the patient: Moderately stable - low risk of patient condition declining or worsening Summary regarding today's goal(s): Not Met: Pt. Had pain rates as high as 8/10 this shift Recommendations: Keep monitoring pt. Pain and give medicine based off mar * Pt Handout (on AVS) - Ivana Mayo RN - 03/04/2024 6:02 PM EDT Images from the original note were not included. 88144 Diabetes: Treating Severe Foot Infections When you have diabetes and your blood sugar isn't under control, it makes it hard for your body to heal. Feet are a common site of problems. Even small foot problems can turn into bad infections. If not treated, they can lead to loss of a foot. Sometimes they can even become life-threatening. Quickcare by your healthcare provider is needed to protect your foot. Getting treatment Sometimes infections can spread throughout the feet and up the leg. To treat a severe infection, you may need to stay in the hospital. You may get antibiotics through an IV (intravenous) line. You may see a healthcare provider who focuses on caring for infections. If the infection is a serious riskto your health, you may need surgery. The goals of foot surgery Surgery is done to remove the infection and protect your foot or leg. Your surgeon may take a smallamount of tissue from the infected area. Sometimes they may need to remove toes or larger amounts of tissue. Surgery to fix or bypass arteries that have been damaged by diabetes may help. This can bring more blood to the infected area. You may have surgery in a hospital or outpatient surgery center. You may need blood tests, X-rays, MRI, or other tests. These may be done to see if the infection has spread to other areas such as the bone. The length of your hospital stay depends on the surgery and how well you?re healing. While you're healing, you will need to limit your activity for a while. Once you're back home, a home health nursewill come see you. Follow all instructions and be sure to follow up with your provider as advised. Wound care after surgery Good wound care after surgery helps keep your foot free of infection. It also aids healing. These tips can help you care for your wound: Change your dressing every 6 hours, or as directed by your provider. Report any redness, swelling, or fluid from the wound to your healthcare provider. You may need IV antibiotics. This is to help control the infection. Other medicines may be used to help your foot heal faster. Take these as prescribed. A home health nurse may help with your dressings or IV antibiotics at home. If needed, your provider may send you to a wound care facility. They treat ulcers and infectionsthat are hard to heal. You may be given antibiotics or other medicines that help fight infection. You'll learn how to care for the wound at home. You may be told to keep your foot raised as much as possible to reduce swelling. Swelling slows wound healing. You may also be told to not put weight on the foot during healing. Blood sugar control during recovery Do what you can to keep your blood sugar in your target range. This will help wound healing. The physical and emotional stress of a wound may cause changes in your blood sugar. If you have trouble with blood sugar control, call your provider. Last Reviewed Date: 01/17/202419999738-4743 [employer]. All rights reserved. This information is not intended as a substitute for professional medical care. Always follow your healthcare professional's instructions. * Pt Handout (on AVS) - Ivana Mayo RN - 03/04/2024 6:02 PM EDT [id number] Diabetic Foot Care Diabetes can lead to a number of foot problems. People with diabetes have a12% to 25% chance of getting a foot sore during their lifetime. But you can prevent these with a little extra foot care. If your diabetes isn't well controlled, it can harm blood vessels. This results in poor blood flow to your feet. When your skin doesn't get enough blood flow, you are more likely to get pressure injuries. These heal slowly. Diabetes can also damage nerves. This interferes with your ability to feel pain and pressure. When you can?t feel your foot normally, it is easy to injure your skin, bones, and joints without knowingit. For these reasons, diabetes increases the risk for fungal infections, bunions, and pressure injuries. A pressure injury is a sore or break in the skin. With these injuries, the skin seems to haveworn away. Deep injuries can lead to bone infection. Gangrene is the most serious foot problem of diabetes. It usually occurs on the tips of the toes asblackened areas of skin. The black area is tissue. In severe cases, gangrene spreads to the entire toe, other toes, and the whole foot. You may need to have your foot, toe, or even leg amputated. Good foot care and blood sugar control can prevent this. Home care Wear comfortable, well-fitting shoes. Wash your feet daily with warm water and mild soap. After drying, put a moisturizing cream or lotion on the top and bottom of your feet. Don't put lotion between toes. Check your feet daily for skin breaks, blisters, swelling, or redness. Look between your toes aswell. If you can't see the bottoms of your feet, ask someone to look or use a mirror. Wear cotton socks and change them every day. Trim toenails carefully, and don't cut your cuticles. Ask your healthcare provider to trim any corns or calluses. Keep your blood sugar under control with medicines, diet, and activity. If you smoke and have diabetes, it's very important that you stop. Smoking reduces blood flow toyour foot. Schedule foot exams at least every year, or more often if you have foot problems. Put your feet up when sitting, wiggle toes, and move ankles to help improve blood flow. Use a mirror to check your feet for problems. Don't do activities that increase your risk of foot injury: Don't walk barefoot. Don't use heating pads or hot water bottles on your feet. Don't put your foot in a hot tub without first checking the temperature with your hand. Follow-up care Follow up with your healthcare provider as advised. Take off your shoes and socks before your appointment starts. This will remind your healthcare provider to check your feet. Report any cut, puncture, scrape, blister, or other injury to your foot. Also report if you have a bunion, hammertoes, ingrown toenail, or pressure injury on your foot. When to get medical advice Call your healthcare provider right away if any of these occur: Black skin color anywhere on the foot Open sore with pus draining from the wound Increasing foot or leg pain New areas of redness or swelling or tender areas of the foot Fever of 100.4F (38C) or higher, or as advised by your provider Last Reviewed Date: 05/18/202219999279-5088 [employer]. All rights reserved. This information is not intended as a substitute for professional medical care. Always follow your healthcare professional's instructions. * Pt Handout (on AVS) - Ivana Mayo RN - 03/04/2024 6:01 PM EDT [id number] Cellulitis Cellulitis is an infection of the deep layers of skin. A break in the skin, such as a cut or scratch, can let bacteria under the skin. Cellulitis causes the affected skin to become red, swollen, warm, and sore. The reddened areas havea border you can see. An open sore may leak fluid (pus). You may have a fever, chills, and pain. Cellulitis is treated with antibiotics taken for 7 to 10 days. An open sore may be cleaned and covered with cool wet gauze. Symptoms should get better 1 to 2 days after treatment is started. Make sure to take all the antibiotics for the full number of days until they are gone. Keep taking the medicine even if your symptoms go away. If not treated, cellulitis can get into the bloodstream and lymph nodes. The infection can then spread throughout the body. This causes serious illness. Home care Follow these tips: Limit the use of the part of your body with cellulitis. If the infection is on your leg, keep your leg raised while sitting. This helps reduce swelling. Take all of the antibiotic medicine exactly as directed until it is gone. Don't miss any doses, especially during the first 7 days. Finish taking all of the medicine even when your symptoms get better. Keep the affected area clean and dry. Wash your hands with soap and clean, running water before and after touching your skin. Anyone else who touches your skin should also wash his or her hands. Don't share towels. Follow-up care Follow up with your healthcare provider, or as advised. If your infection doesn't go away after finishing the first antibiotic, your healthcare provider will prescribe a different one. When to seek medical advice Call your healthcare provider right away if any of these occur: Red areas that spread Swelling or pain that gets worse Fluid leaking from the skin (pus) Fever higher of 100.4 F (38.0 C) or higher after 2 days on antibiotics Last Reviewed Date: 10/18/202119998945-5492 [employer]. All rights reserved. This information is not intended as a substitute for professional medical care. Always follow your healthcare professional's instructions. * Care Plan - Lsia Ladd RN - 03/04/2024 5:04 AM EDT Clinical Goal(s): Pt will have adequate pain control this shift (03/03/242012) Possible barriers to meeting goal(s)/advancing plan of care: acuity of illness Stability of the patient: Moderately stable - low risk of patient condition declining or worsening Summary regarding today's goal(s): Met: Pt verbalized adequate pain control this shift Recommendations: Continue with plan of care * ED Jd Edwards Note - Pippa Quiros RN - 03/03/2024 6:20 PM EDT Report called to 3b. * Medical Necessity - Ivana Cool RN - 03/03/2024 5:45 PM EDT AdmissionCare Guideline: Cellulitis - INPT, Inpatient Based on the indications selected for the patient, the bed status of Inpatient was determined to beMET The following indications were selected as present at the time of evaluation of the patient: - Clinical presentation (eg, acuity of infection, rapidity of progression) or treatment regimen is judged to require intensity of patient monitoring (eg, vital sign measurement, checks for infection progression, laboratory testing) that cannot be provided at other than inpatient level of care. Additional Information: Piperacillin-Tazobactam (Zosyn) 4.5 g in 100 mL NSS ivpb (FOUR hour infusion) vancomycin (Vancocin) 2500 mg in NSS 500 mL ivpb AdmissionCare documentation entered by: Ivana Cool [facility] Room n House, 27th edition, Copyright 2022 [facility] [employer] All Rights Reserved. [id number]:45:00-04:00 Solely for purpose of utilization review and payment; not a diagnostic tool * ED Jd Edwards Note - Pippa Quiros RN - 03/03/2024 2:48 PM EDT Pt left foot is wrapped from home with guaze and blake wrap, noted about 3 cm circular dried blood onoutside of blake wrap, pt has < 2 second cap refill to left toes. documented in this encounter Plan of Treatment Upcoming Encounters Date Type Department Care Team (Late st Contact Info) Description 05/08/2024 11:40 AM EDT Office Visit [facility] [address] [facility] [place] [phone] Velasquez Valencia MD [address] [facility] [place] [address] Pending Results Name Type Priority Associated Diagnoses Date /Time CULTURE, BLOOD Lab Routine 03/03/2024 5:27 PM EDT CULTURE, BLOOD Lab Routine 03/03/2024 6:04 PM EDT Scheduled Procedures Name Priority Associated [...] 02/07/2021 DISCUSS TOBACCO CESSATION (REFER TO SMARTSET #[id number]) 10/16/2023 10/16/2022 Zoster Vaccines (1 of 2) [...] this encounter Medical Devices Implanted Type Area Type Disk Quality Control Supervisor Device Identifier Shelf Expiration Date Model / Serial / Lot Suture Otisco Dbl Load 4.75mm - [id number] Implanted:Qty: 1 on 12/01/2019 by Judith Condon DO at [facility] Right: Shoulder [employer] 07/17/2021 [id number] -2 / / [id number] Suture Otisco Dbl Load 5.5mm - [id number] Implanted:Qty: 1 on 12/01/2019 by Judith Condon DO at [facility] Right: Shoulder [employer] 09/16/2021 [id number] -[id number] / / [id number] documented as of this encounter Procedures Procedure Name Priority Date/Time Associated Diagnosis Comments GLUCOSE METER, POINT OF CARE [facility] 03/06/2024 11:10 AM EDT GLUCOSE METER, POINT OF CARE [place] 03/06/2024 7:34 AM EDT VANCOMYCIN RANDOM Timed 03/06/2024 5:4 1 AM EDT BASIC METABOLIC PANEL Routine 03/06/2024 5:41 AM EDT PHOSPHORUS Routine 03/06/2024 5:41 AM EDT CBC Routine 03/06/2024 5:41 AM EDT MAGNESIUM Routine 03/06/2024 5:41 AM EDT GLUCOSE METER, POINT OF CARE [place] 03/05/2024 9:35 PM EDT GLUCOSE METER, POINT OF CARE [place] 03/05/2024 4:36 PM EDT GLUCOSE METER, POINT OF CARE [place] 03/05/2024 11:13 AM EDT GLUCOSE METER, POINT OF CARE [place] 03/05/2024 8:00 AM EDT VANCOMYCIN RANDOM Timed 03/05/2024 5:1 8 AM EDT BASIC METABOLIC PANEL Routine 03/05/2024 5:18 AM EDT PHOSPHORUS Routine 03/05/2024 5:18 AM EDT CBC Routine 03/05/2024 5:18 AM EDT MAGNESIUM Routine 03/05/2024 5:18 AM EDT GLUCOSE METER, POINT OF CARE [place] 03/04/2024 9:51 PM EDT GLUCOSE METER, POINT OF CARE [facility] 03/04/2024 4:11 PM EDT GLUCOSE METER, POINT OF CARE [place] 03/04/2024 11:19 AM EDT MRI ANKLE LEFT W WO CONTRAST STAT 03/04/2024 8:57 AM EDT GLUCOSE METER, POINT OF CARE [place] 03/04/2024 7:20 AM EDT BASIC METABOLIC PANEL Routine 03/04/2024 6:44 AM EDT PHOSPHORUS Routine 03/04/2024 6:44 AM EDT CBC Routine 03/04/2024 6:44 AM EDT MAGNESIUM Routine 03/04/2024 6:44 AM EDT GLUCOSE METER, POINT OF CARE [place] 03/03/2024 9:10 PM EDT GLUCOSE METER, POINT OF CARE [place] 03/03/2024 6:41 PM EDT LACTATE STAT 03/03/2024 6:04 PM EDT CULTURE, BLOOD Routine 03/03/2024 6:04 PM EDT XR CHEST 1 VIEW STAT 03/03/2024 5:49 PM EDT CULTURE, BLOOD Routine 03/03/2024 5:27 PM EDT XR FOOT 3 OR MORE VIEWS STAT 03/03/2024 3:55 PM EDT DIFFERENTIAL, AUTOMATED STAT 03/03/2024 3:24 PM EDT PROCALCITONIN Routine 03/03/2024 3:24 PM EDT CRP (INFLAMMATORY MARKER) STAT 03/03/2024 3:24 PM EDT COMPREHENSIVE METABOLIC PANEL STAT 03/03/2024 3:24 PM EDT CBC STAT 03/03/2024 3:24 PM EDT CBC STAT 03/03/2024 3:24 PM EDT documented in this encounter Results * (ABNORMAL) GLUCOSE METER, POINT OF CARE (03/06/2024 11:10 AM EDT) [facility] Glucose Meter 272(H) 70 - 120 mg/dL 03/06/2024 11:15 AM EDT [facility] Blood Whole blood specimen / Unknown 03/06/2024 11:10 AM EDT 03/06/2024 11:15 AM EDT Junior Wylie MD LAB POINT OF CARE T EST DOCKED DEVICE UNSOLICITED RESULTS Performing Organization Address [facility] de Phone Number [facility] [address] [place] [phone] * (ABNORMAL) GLUCOSE METER, POINT OF CARE (03/06/2024 7:34 AM EDT) Glucose Meter 181(H) 70 - 120 mg/dL 03/06/2024 7:39 AM EDT [facility] Blood Whole blood specimen / Unknown 03/06/2024 7:34 AM EDT 03/06/2024 7:39 AM EDT Junior Wylie MD LAB POINT OF CARE T EST DOCKED DEVICE UNSOLICITED RESULTS Performing Organization Address [facility] de Phone Number [facility] [address] [place] [phone] * PHOSPHORUS (03/06/2024 5:41 AM EDT) Phosphorus 4.4 2.5 - 4.8 mg/dL 03/06/2024 6:35 AM EDT LABORATORY [facility] Blood Venous blood specimen / Unknown Venipuncture / Unknown 03/06/2024 5:41 AM EDT 03/06/2024 6:06 AM EDT Sunni Alcantara PA-C LAB BLOOD ORDER [facility]SON Performing Organization Address City/[facility] Co de Phone Number LABORATORY [address] [address] * MAGNESIUM (03/06/2024 5:41 AM EDT) Magnesium 1.7 1.5 - 2.6 mg/dL 03/06/2024 6:35 AM EDT LABORATORY [facility] Blood Venous blood specimen / Unknown Venipuncture / Unknown 03/06/2024 5:41 AM EDT 03/06/2024 6:06 AM EDT Sunni Alcantara PA-C LAB BLOOD ORDER CARSON LABORATORY [address] [address] * (ABNORMAL) CBC (03/06/2024 5:41 AM EDT) WBC 7.55 4.00 - 10.80 K/uL 03/06/2024 6:13 AM EDT LABORATORY GL[facility] RBC 3.76 4.50 - 5.25 M/uL 03/06/2024 6:13 AM EDT LABORATORY GL[facility] HGB 9.4(L) 14.0 - 16.8 g/dL 03/06/2024 6:13 AM EDT LABORATORY GL[facility] HCT 30.9(L) 40.0 - 48.4 % 03/06/2024 6:13 AM EDT LABORATORY GL[facility] MCV 82.2 82.0 - 99.5 fL 03/06/2024 6:13 AM EDT LABORATORY GL[facility] MCH 25.0 27.0 - 34.0 pg 03/06/2024 6:13 AM EDT LABORATORY GL MCHC 30.4 32.0 - 36.0 g/dL 03/06/2024 6:13 AM EDT LABORATORY GL RDW 14.6 11.5 - 15.5 % 03/06/2024 6:13 AM EDT LABORATORY GLH PLT 288 140 - 400 K/uL 03/06/2024 6:13 AM EDT LABORATORY GL MPV 9.1 6.6 - 11.1 fL 03/06/2024 6:13 AM EDT LABORATORY GL nRBCs 0 <=0 /100 WBCs 03/06/2024 6:13 AM EDT LABORATORY GL[facility] Blood Venous blood specimen / Unknown Venipuncture / Unknown 03/06/2024 5:41 AM EDT 03/06/2024 6:06 AM EDT Sunni Alcantara PA-C LAB BLOOD ORDER CARSON LABORATORY [address] [address] * (ABNORMAL) BASIC METABOLIC PANEL (03/06/2024 5:41 AM EDT) BUN 14 6 - 20 mg/dL 03/06/2024 6:35 AM EDT LABORATORY GL[facility] Creatinine 0.8 0.6 - 1.2 mg/dL 03/06/2024 6:35 AM EDT LABORATORY GL[facility] Estimated Glomerular Filtration Rate >90 >=60 mL/min 03/06/2024 6:35 AM EDT LABORATORY GLH Comment:eGFR is calculated b ased on the CKD-EPI 2020 equation Sodium 137 135 - 146 mmol/L 03/06/2024 6:35 AM EDT LABORATORY GL[facility] Potassium 4.1 3.5 - 5.1 mmol/L 03/06/2024 6:35 AM EDT LABORATORY GL[facility] Chloride 99 98 - 107 mmol/L 03/06/2024 6:35 AM EDT LABORATORY GL[facility] CO2 24 22 - 32 mmol/L 03/06/2024 6:35 AM EDT LABORATORY GL[facility] Anion Gap 14 7 - 15 mmol/L 03/06/2024 6:35 AM EDT LABORATORY GL[facility] Glucose 175(H) 70 - 120 mg/dL 03/06/2024 6:35 AM EDT LABORATORY GL[facility] Calcium 9.3 8.4 - 10.2 mg/dL 03/06/2024 6:35 AM EDT LABORATORY GL[facility] Blood Venous blood specimen / Unknown Venipuncture / Unknown 03/06/2024 5:41 AM EDT 03/06/2024 6:06 AM EDT Sunni Alcantara PA-C LAB BLOOD ORDER CARSON LABORATORY [address] [place] [address] * VANCOMYCIN RANDOM (03/06/2024 5:41 AM EDT) Vancomycin Random 13.1 10.0 - 40.0 ug/mL 03/06/2024 11:46 AM EDT LABORATORY GLH Blood Venous blood specimen / Unknown Venipuncture / Unknown 03/06/2024 5:41 AM EDT 03/06/2024 6:06 AM EDT Junior Wylie MD LAB BLOOD ORDERABLE S LABORATORY [address] [phone] * (ABNORMAL) GLUCOSE METER, POINT OF CARE (03/05/2024 9:35 PM EDT) Glucose Meter 235(H) 70 - 120 mg/dL 03/05/2024 9:40 PM EDT [facility] Blood Whole blood specimen / Unknown 03/05/2024 9:35 PM EDT 03/05/2024 9:40 PM EDT Junior Wylie MD LAB POINT OF CARE T EST DOCKED DEVICE UNSOLICITED RESULTS Performing Organization Address [facility] Co de Phone Number [facility] [address] [place] [phone] * (ABNORMAL) GLUCOSE METER, POINT OF CARE (03/05/2024 4:36 PM EDT) Glucose Meter 191(H) 70 - 120 mg/dL 03/05/2024 5:59 PM EDT [facility] Blood Whole blood specimen / Unknown 03/05/2024 4:36 PM EDT 03/05/2024 5:59 PM EDT Junior Wylie MD LAB POINT OF CARE T EST DOCKED DEVICE UNSOLICITED RESULTS Performing Organization Address City/[facility] Co de Phone Number [facility] [address] [place] [address] [place] [phone] * (ABNORMAL) GLUCOSE METER, POINT OF CARE (03/05/2024 11:13 AM EDT) Glucose Meter 247(H) 70 - 120 mg/dL 03/05/2024 12:07 PM EDT [facility] Blood Whole blood specimen / Unknown 03/05/2024 11:13 AM EDT 03/05/2024 12:07 PM EDT Junior Wylie MD LAB POINT OF CARE T EST DOCKED DEVICE UNSOLICITED RESULTS Performing Organization Address [facility] de Phone Number [facility] [address] [place] [address] * (ABNORMAL) GLUCOSE METER, POINT OF CARE (03/05/2024 8:00 AM EDT) Glucose Meter 168(H) 70 - 120 mg/dL 03/05/2024 8:18 AM EDT [facility] Blood Whole blood specimen / Unknown 03/05/2024 8:00 AM EDT 03/05/2024 8:18 AM EDT Junior Wylie MD LAB POINT OF CARE T EST DOCKED DEVICE UNSOLICITED RESULTS Performing Organization Address [facility] de Phone Number [facility] [address] [place] [address] * PHOSPHORUS (03/05/2024 5:18 AM EDT) Phosphorus 3.9 2.5 - 4.8 mg/dL 03/05/2024 6:00 AM EDT LABORATORY [facility] Blood Venous blood specimen / Unknown Venipuncture / Unknown 03/05/2024 5:18 AM EDT 03/05/2024 5:37 AM EDT Sunni Alcantara PA-C LAB BLOOD ORDER CARSON Performing Organization Address City/[facility] Co de Phone Number LABORATORY GL [address] [place] [address] * MAGNESIUM (03/05/2024 5:18 AM EDT) Magnesium 1.9 1.5 - 2.6 mg/dL 03/05/2024 6:00 AM EDT LABORATORY GL Blood Venous blood specimen / Unknown Venipuncture / Unknown 03/05/2024 5:18 AM EDT 03/05/2024 5:37 AM EDT Sunni Alcantara PA-C LAB BLOOD ORDER CARSON Performing Organization Address City/[facility]/ZIP Co de Phone Number LABORATORY [address] [phone] * (ABNORMAL) CBC (03/05/2024 5:18 AM EDT) WBC 8.09 4.00 - 10.80 K/uL 03/05/2024 5:45 AM EDT LABORATORY [facility] RBC 3.97 4.50 - 5.25 M/uL 03/05/2024 5:45 AM EDT LABORATORY [facility] HGB 10.1(L) 14.0 - 16.8 g/dL 03/05/2024 5:45 AM EDT LABORATORY [facility] HCT 35.0(L) 40.0 - 48.4 % 03/05/2024 5:45 AM EDT LABORATORY [facility] MCV 88.2 82.0 - 99.5 fL 03/05/2024 5:45 AM EDT LABORATORY [facility] MCH 25.4 27.0 - 34.0 pg 03/05/2024 5:45 AM EDT LABORATORY [facility] MCHC 28.9 32.0 - 36.0 g/dL 03/05/2024 5:45 AM EDT LABORATORY [facility] RDW 15.0 11.5 - 15.5 % 03/05/2024 5:45 AM EDT LABORATORY [facility] PLT 257 140 - 400 K/uL 03/05/2024 5:45 AM EDT LABORATORY [facility] MPV 9.0 6.6 - 11.1 fL 03/05/2024 5:45 AM EDT LABORATORY [facility] nRBCs 0 <=0 /100 WBCs 03/05/2024 5:45 AM EDT LABORATORY [facility] Blood Venous blood specimen / Unknown Venipuncture / Unknown 03/05/2024 5:18 AM EDT 03/05/2024 5:37 AM EDT Sunni Alcantara PA-C LAB BLOOD ORDER CARSON LABORATORY GLH [address] [place] [address] * (ABNORMAL) BASIC METABOLIC PANEL (03/05/2024 5:18 AM EDT) BUN 14 6 - 20 mg/dL 03/05/2024 6:00 AM EDT LABORATORY GL Creatinine 0.8 0.6 - 1.2 mg/dL 03/05/2024 6:00 AM EDT LABORATORY GLH Estimated Glomerular Filtration Rate >90 >=60 mL/min 03/05/2024 6:00 AM EDT LABORATORY GLH Comment:eGFR is calculated b ased on the CKD-EPI 2020 equation Sodium 134(L) 135 - 146 mmol/L 03/05/2024 6:00 AM EDT LABORATORY GL[facility] Potassium 4.5 3.5 - 5.1 mmol/L 03/05/2024 6:00 AM EDT LABORATORY GL[facility] Chloride 101 98 - 107 mmol/L 03/05/2024 6:00 AM EDT LABORATORY GL[facility] CO2 18(L) 22 - 32 mmol/L 03/05/2024 6:00 AM EDT LABORATORY GL[facility] Anion Gap 15 7 - 15 mmol/L 03/05/2024 6:00 AM EDT LABORATORY GL[facility] Glucose 159(H) 70 - 120 mg/dL 03/05/2024 6:00 AM EDT LABORATORY GL[facility] Calcium 9.0 8.4 - 10.2 mg/dL 03/05/2024 6:00 AM EDT LABORATORY GL[facility] Blood Venous blood specimen / Unknown Venipuncture / Unknown 03/05/2024 5:18 AM EDT 03/05/2024 5:37 AM EDT Sunni Alcantara PA-C LAB BLOOD ORDER CARSON LABORATORY [facility] [address] [place] [address] * VANCOMYCIN RANDOM (03/05/2024 5:18 AM EDT) Vancomycin Random 10.9 10.0 - 40.0 ug/mL 03/05/2024 6:35 AM EDT LABORATORY GLH Blood Venous blood specimen / Unknown Venipuncture / Unknown 03/05/2024 5:18 AM EDT 03/05/2024 5:37 AM EDT Pb Garduno MD LAB BLOOD ORD ERABLES LABORATORY [address] [phone] * (ABNORMAL) GLUCOSE METER, POINT OF CARE (03/04/2024 9:51 PM EDT) Glucose Meter 170(H) 70 - 120 mg/dL 03/05/2024 12:15 AM EDT [facility] Blood Whole blood specimen / Unknown 03/04/2024 9:51 PM EDT 03/05/2024 12:15 AM EDT Junior Wylie MD LAB POINT OF CARE T EST DOCKED DEVICE UNSOLICITED RESULTS Performing Organization Address [facility] Co de Phone Number [facility] [address] [place] [phone] * (ABNORMAL) GLUCOSE METER, POINT OF CARE (03/04/2024 4:11 PM EDT) Glucose Meter 235(H) 70 - 120 mg/dL 03/04/2024 4:18 PM EDT [facility] Blood Whole blood specimen / Unknown 03/04/2024 4:11 PM EDT 03/04/2024 4:18 PM EDT Junior Wylie MD LAB POINT OF CARE T EST DOCKED DEVICE UNSOLICITED RESULTS Performing Organization Address [facility] Co de Phone Number [facility] [address] [place] [phone] * (ABNORMAL) GLUCOSE METER, POINT OF CARE (03/04/2024 11:19 AM EDT) Glucose Meter 154(H) 70 - 120 mg/dL 03/04/2024 11:59 AM EDT [facility] Blood Whole blood specimen / Unknown 03/04/2024 11:19 AM EDT 03/04/2024 11:59 AM EDT Junior Wylie MD LAB POINT OF CARE T EST DOCKED DEVICE UNSOLICITED RESULTS [facility] [address] [place] [address] * MRI ANKLE LEFT W WO CONTRAST (03/04/2024 8:57 AM EDT) Anatomical Region Laterality Modality Lower Extremity, Ankle Magnetic Resonance 03/06/2024 8:09 AM EDT Impressions 03/06/2024 8:07 AM EDT IMPRESSION Findings consistent with septic arthritis and extensive osteomyelitis of the left ankle and hindfoot, with background postoperative changes of prior tibiotalocalcaneal fusion and subsequent hardware removal. Narrative 03/06/2024 8:07 AM EDT EXAM MRI ANKLE LEFT W WO CONTRAST-LT 03/04/2024 8:57 am HISTORY Provided clinical history: "Evaluate swelling/redness s/p hardward removal; hx charcot arthropathy" Per the electronic medical record, the patient has a history of Charcot arthropathy, status post left ankle fusion on October 20, 2023 and subsequent hardware removal on February 04, 2024. Draining wound since that time. COMPARISON Left foot radiographs dated March 03, 2024. TECHNIQUE Multiplanar, multi-sequence MRI of the left ankle was performed with and without IV contrast. FINDINGS There is a soft tissue wound at the medial aspect of the ankle (series 9, image 23), with peripherally enhancing fluid extending from the skin wound to the ankle joint and diffuse enhancement of the surrounding soft tissue. There is also extensive enhancing bone marrow edema throughout the ankle and hindfoot (including the distal tibia, distal fibula, calcaneus, talus, navicular, and a small portion of the cuboid). The bulk of the talar body is not visible, which may be postoperative in nature or may represent bone destruction. Osseous tract of a previously removed retrograde tibiotalocalcaneal nail noted. The distal portion of the fibula has been resected. Complete tear versus surgical ligation of the tibialis posterior tendon at the level of the distal tibia. Procedure Note Toni Daugherty MD - 03/06/2024 EXAM MRI ANKLE LEFT W WO CONTRAST-LT 03/04/2024 8:57 am HISTORY Provided clinical history: "Evaluate swelling/redness s/p hardwardremoval; hx charcot arthropathy" Per the electronic medical record, the patient has a history of Charcotarthropathy, status post left ankle fusion on October 20, 2023 andsubsequent hardware removal on February 04, 2024. Draining wound since thattime. COMPARISON Left foot radiographs dated March 03, 2024. TECHNIQUE Multiplanar, multi-sequence MRI of the left ankle was performed with andwithout IV contrast. FINDINGS There is a soft tissue wound at the medial aspect of the ankle (series 9,image 23), with peripherally enhancing fluid extending from the skin woundto the ankle joint and diffuse enhancement of the surrounding soft tissue.There is also extensive enhancing bone marrow edema throughout the ankleand hindfoot (including the distal tibia, distal fibula, calcaneus, talus,navicular, and a small portion of the cuboid). The bulk of the talar bodyis not visible, which may be postoperative in nature or may represent bonedestruction. Osseous tract of a previously removed retrogradetibiotalocalcaneal nail noted. The distal portion of the fibula has beenresected. Complete tear versus surgical ligation of the tibialisposterior tendon at the level of the distal tibia. IMPRESSION IMPRESSION Findings consistent with septic arthritis and extensive osteomyelitis ofthe left ankle and hindfoot, with background postoperative changes ofprior tibiotalocalcaneal fusion and subsequent hardware removal. Jolene Carranza DO RAD MRI-MR A * (ABNORMAL) GLUCOSE METER, POINT OF CARE (03/04/2024 7:20 AM EDT) Glucose Meter 170(H) 70 - 120 mg/dL 03/04/2024 7:53 AM EDT [facility] Blood Whole blood specimen / Unknown 03/04/2024 7:20 AM EDT 03/04/2024 7:53 AM EDT Junior Mounica Maddu MD LAB POINT OF CARE T EST DOCKED DEVICE UNSOLICITED RESULTS Performing Organization Address [facility]/ZIP Co de Phone Number [facility] [address] [place] [phone] * PHOSPHORUS (03/04/2024 6:44 AM EDT) Phosphorus 4.0 2.5 - 4.8 mg/dL 03/04/2024 7:51 AM EDT LABORATORY GL Blood Venous blood specimen / Unknown Venipuncture / Unknown 03/04/2024 6:44 AM EDT 03/04/2024 6:56 AM EDT Sunni Alcantara PA-C LAB BLOOD ORDER CARSON Performing Organization Address [facility] Co de Phone Number LABORATORY [address] [address] * MAGNESIUM (03/04/2024 6:44 AM EDT) [facility] Magnesium 1.5 1.5 - 2.6 mg/dL 03/04/2024 7:51 AM EDT LABORATORY [facility] Blood Venous blood specimen / Unknown Venipuncture / Unknown 03/04/2024 6:44 AM EDT 03/04/2024 6:56 AM EDT Sunni Alcantara PA-C LAB BLOOD ORDER CARSON Performing Organization Address City/[facility]/ZIP Co de Phone Number LABORATORY [address] [address] * (ABNORMAL) CBC (03/04/2024 6:44 AM EDT) WBC 10.70 4.00 - 10.80 K/uL 03/04/2024 7:07 AM EDT LABORATORY GL RBC 3.68 4.50 - 5.25 M/uL 03/04/2024 7:07 AM EDT LABORATORY GLH HGB 9.6(L) 14.0 - 16.8 g/dL 03/04/2024 7:07 AM EDT LABORATORY GL[facility] HCT 30.2(L) 40.0 - 48.4 % 03/04/2024 7:07 AM EDT LABORATORY [facility] MCV 82.1 82.0 - 99.5 fL 03/04/2024 7:07 AM EDT LABORATORY GL MCH 26.1 27.0 - 34.0 pg 03/04/2024 7:07 AM EDT LABORATORY [facility] MCHC 31.8 32.0 - 36.0 g/dL 03/04/2024 7:07 AM EDT LABORATORY [facility] RDW 15.1 11.5 - 15.5 % 03/04/2024 7:07 AM EDT LABORATORY [facility] PLT 277 140 - 400 K/uL 03/04/2024 7:07 AM EDT LABORATORY [facility] MPV 8.7 6.6 - 11.1 fL 03/04/2024 7:07 AM EDT LABORATORY GL nRBCs 0 <=0 /100 WBCs 03/04/2024 7:07 AM EDT LABORATORY [facility] Blood Venous blood specimen / Unknown Venipuncture / Unknown 03/04/2024 6:44 AM EDT 03/04/2024 6:56 AM EDT Sunni Alcantara PA-C LAB BLOOD ORDER CARSON LABORATORY [facility] [address] [place] [address] * (ABNORMAL) BASIC METABOLIC PANEL (03/04/2024 6:44 AM EDT) BUN 22(H) 6 - 20 mg/dL 03/04/2024 7:51 AM EDT LABORATORY GL Creatinine 1.0 0.6 - 1.2 mg/dL 03/04/2024 7:51 AM EDT LABORATORY GL Estimated Glomerular Filtration Rate >90 >=60 mL/min 03/04/2024 7:51 AM EDT LABORATORY GL Comment:eGFR is calculated b ased on the CKD-EPI 2020 equation Sodium 137 135 - 146 mmol/L 03/04/2024 7:51 AM EDT LABORATORY GL[facility] Potassium 4.5 3.5 - 5.1 mmol/L 03/04/2024 7:51 AM EDT LABORATORY GL[facility] Chloride 99 98 - 107 mmol/L 03/04/2024 7:51 AM EDT LABORATORY GL[facility] CO2 26 22 - 32 mmol/L 03/04/2024 7:51 AM EDT LABORATORY GL[facility] Anion Gap 12 7 - 15 mmol/L 03/04/2024 7:51 AM EDT LABORATORY GL[facility] Glucose 171(H) 70 - 120 mg/dL 03/04/2024 7:51 AM EDT LABORATORY GL[facility] Calcium 9.1 8.4 - 10.2 mg/dL 03/04/2024 7:51 AM EDT LABORATORY GL[facility] Blood Venous blood specimen / Unknown Venipuncture / Unknown 03/04/2024 6:44 AM EDT 03/04/2024 6:56 AM EDT Sunni Alcantara PA-C LAB BLOOD ORDER CARSON Performing Organization Address City/[facility]/ZIP Co de Phone Number LABORATORY [address] [phone] * (ABNORMAL) GLUCOSE METER, POINT OF CARE (03/03/2024 9:10 PM EDT) Glucose Meter 187(H) 70 - 120 mg/dL 03/03/2024 9:21 PM EDT [facility] Blood Whole blood specimen / Unknown 03/03/2024 9:10 PM EDT 03/03/2024 9:21 PM EDT Pb Garduno MD LAB POINT OF CARE TEST DOCKED DEVICE UNSOLICITED RESULTS [facility] [address] [place] [phone] * (ABNORMAL) GLUCOSE METER, POINT OF CARE (03/03/2024 6:41 PM EDT) Glucose Meter 157(H) 70 - 120 mg/dL 03/03/2024 6:44 PM EDT [facility] Blood Whole blood specimen / Unknown 03/03/2024 6:41 PM EDT 03/03/2024 6:44 PM EDT Pb Garduno MD LAB POINT OF CARE TEST DOCKED DEVICE UNSOLICITED RESULTS Performing Organization Address City/[facility]/ZIP Co de Phone Number [facility] [address] [place] [address] * LACTATE (03/03/2024 6:04 PM EDT) Lactate 1.4 0.4 - 2.0 mmol/L 03/03/2024 6:21 PM EDT LABORATORY [facility] Blood Venous blood specimen / Unknown Venipuncture / Unknown 03/03/2024 6:04 PM EDT 03/03/2024 6:07 PM EDT Sunni Alcantara PA-C LAB BLOOD ORDER CARSON Performing Organization Address [facility] Co de Phone Number LABORATORY [facility] [address] [place], [place] [phone] * XR CHEST 1 VIEW (03/03/2024 5:49 PM EDT) Anatomical Region Laterality Modality Chest Digital Radiogra phy 03/03/2024 5:32 PM EDT Impressions 03/03/2024 5:55 PM EDT IMPRESSION: No acute findings. THIS DOCUMENT HAS BEEN ELECTRONICALLY SIGNED BY MAMTA GROSS MD Narrative 03/03/2024 5:55 PM EDT PROCEDURE INFORMATION: Exam: XR Chest Exam date and time: 03/03/2024 5:32 PM Age: 48 years old Clinical indication: Other: Pre-op. No active chest complaints. TECHNIQUE: Imaging protocol: Radiologic exam of the chest. Views: 1 view. COMPARISON: CT CHEST WO(Adult) 02/09/2024 10:25 AM FINDINGS: Lungs: Unremarkable. No consolidation. Pleural spaces: Unremarkable. No pleural effusion. No pneumothorax. Heart/Mediastinum: Unremarkable. No cardiomegaly. Bones/joints: Unremarkable. Procedure Note Mamta Gross MD - 03/03/2024 PROCEDURE INFORMATION: Exam: XR Chest Exam date and time: 03/03/2024 5:32 PM Age: 48 years old Clinical indication: Other: Pre-op. No active chest complaints. TECHNIQUE: Imaging protocol: Radiologic exam of the chest. Views: 1 view. COMPARISON: CT CHEST WO(Adult) 02/09/2024 10:25 AM FINDINGS: Lungs: Unremarkable. No consolidation. Pleural spaces: Unremarkable. No pleural effusion. No pneumothorax. Heart/Mediastinum: Unremarkable. No cardiomegaly. Bones/joints: Unremarkable. IMPRESSION IMPRESSION: No acute findings. THIS DOCUMENT HAS BEEN ELECTRONICALLY SIGNED BY MAMTA GROSS MD Jolene Carranza DO RADIOLOGY ([facility]) * XR FOOT 3 OR MORE VIEWS (03/03/2024 3:55 PM EDT) Anatomical Region Laterality Modality Foot, Lower Extremity Digital Ra diography 03/03/2024 3:48 PM EDT Impressions 03/03/2024 4:09 PM EDT IMPRESSION: Destructive changes in the ankle joint with multiple erosions and debris surrounding the joint and joint space narrowing. Consistent with the history of Charcot arthropathy. THIS DOCUMENT HAS BEEN ELECTRONICALLY SIGNED BY MAMTA GROSS MD Narrative 03/03/2024 4:09 PM EDT PROCEDURE INFORMATION: Exam: XR Left Foot Exam date and time: 03/03/2024 3:48 PM Age: 48 years old Clinical indication: Other: Progressively worsening bleeding, pain, redness, swelling since hardward removal surgery 01/2024; HX charcot arthropathy TECHNIQUE: Imaging protocol: Radiologic exam of the left foot. Views: 3 or more views. COMPARISON: CTA ABD AORTA/FEM RUNOFF W CONTRAST 10/30/2023 2:54 AM FINDINGS: Bones/joints: Destructive changes in the ankle joint with multiple erosions and debris surrounding the joint and joint space narrowing. Consistent with the history of Charcot arthropathy. Bony defect in the calcaneus. Soft tissues: Soft tissue swelling. Procedure Note Mamta Gross MD - 03/03/2024 PROCEDURE INFORMATION: Exam: XR Left Foot Exam date and time: 03/03/2024 3:48 PM Age: 48 years old Clinical indication: Other: Progressively worsening bleeding, pain,redness, swelling since hardward removal surgery 01/2024; HX charcot arthropathy TECHNIQUE: Imaging protocol: Radiologic exam of the left foot. Views: 3 or more views. COMPARISON: CTA ABD AORTA/FEM RUNOFF W CONTRAST 10/30/2023 2:54 AM FINDINGS: Bones/joints: Destructive changes in the ankle joint with multipleerosions and debris surrounding the joint and joint space narrowing. Consistent withthe history of Charcot arthropathy. Bony defect in the calcaneus. Soft tissues: Soft tissue swelling. IMPRESSION IMPRESSION: Destructive changes in the ankle joint with multiple erosions and debris surrounding the joint and joint space narrowing. Consistent with thehistory of Charcot arthropathy. THIS DOCUMENT HAS BEEN ELECTRONICALLY SIGNED BY MAMTA GROSS MD Jolene Carranza DO RADIOLOGY ([facility]) * (ABNORMAL) DIFFERENTIAL, AUTOMATED (03/03/2024 3:24 PM EDT) WBC 10.46 4.00 - 10.80 K/uL 03/03/2024 3:41 PM EDT LABORATORY [facility] Neutrophils % 62.5 40.0 - 75.0 % 03/03/2024 3:41 PM EDT LAB[facility]ATORY [facility] Lymphocytes % 16.3(L) 18.0 - 42.0 % 03/03/2024 3:41 PM EDT LAB[facility]ATORY [facility] Monocytes % 14.0(H) 1.0 - 11.0 % 03/03/2024 3:41 PM EDT LAB[facility] Eosinophils % 4.3 0.0 - 6.0 % 03/03/2024 3:41 PM EDT LAB[facility]ATORY [facility] Basophils % 0.9 0.0 - 2.0 % 03/03/2024 3:41 PM EDT LAB[facility]ATORY [facility] Immature Granulocytes % 2.0 0.0 - 2.0 % 03/03/2024 3:41 PM EDT LAB[facility]ATORY [facility] Absolute Neutrophils 6.54 1.80 - 7.70 K/uL 03/03/2024 3:41 PM EDT LAB[facility]ATORY [facility] Absolute Lymphocytes 1.71 1.00 - 4.80 K/ul 03/03/2024 3:41 PM EDT LAB[facility]ATORY [facility] Absolute Monocytes 1.46(H) 0.00 - 1.10 K/uL 03/03/2024 3:41 PM EDT LABORATORY [facility] Absolute Eosinophils 0.45 0.00 - 0.70 K/uL 03/03/2024 3:41 PM EDT LABORATORY [facility] Absolute Basophils 0.09 0.00 - 0.20 K/uL 03/03/2024 3:41 PM EDT LABORATORY GL Absolute Immature Granulocytes 0.21(H) 0.00 - 0.20 K/uL 03/03/2024 3:41 PM EDT LABORATORY GL Blood Venous blood specimen / Unknown Venipuncture / Unknown 03/03/2024 3:24 PM EDT 03/03/2024 3:27 PM EDT Jolene Carranza DO LAB BLOOD ORDERABLES LABORATORY [facility] [address] [place] [address] * (ABNORMAL) CBC (03/03/2024 3:24 PM EDT) WBC 10.46 4.00 - 10.80 K/uL 03/03/2024 3:41 PM EDT LABORATORY [facility] RBC 4.30 4.50 - 5.25 M/uL 03/03/2024 3:41 PM EDT LABORATORY GL HGB 11.1(L) 14.0 - 16.8 g/dL 03/03/2024 3:41 PM EDT LABORATORY GL HCT 35.3(L) 40.0 - 48.4 % 03/03/2024 3:41 PM EDT LABORATORY GL MCV 82.1 82.0 - 99.5 fL 03/03/2024 3:41 PM EDT LABORATORY GL MCH 25.8 27.0 - 34.0 pg 03/03/2024 3:41 PM EDT LABORATORY GL MCHC 31.4 32.0 - 36.0 g/dL 03/03/2024 3:41 PM EDT LABORATORY GL RDW 15.0 11.5 - 15.5 % 03/03/2024 3:41 PM EDT LABORATORY [facility] PLT 349 140 - 400 K/uL 03/03/2024 3:41 PM EDT LABORATORY GL MPV 8.6 6.6 - 11.1 fL 03/03/2024 3:41 PM EDT LABORATORY [facility] nRBCs 0 <=0 /100 WBCs 03/03/2024 3:41 PM EDT LABORATORY [facility] Blood Venous blood specimen / Unknown Venipuncture / Unknown 03/03/2024 3:24 PM EDT 03/03/2024 3:27 PM EDT [facility] LAB BLOOD ORDERABLES Performing Organization Address [facility] Co de Phone Number LABORATORY [address] [address] * PROCALCITONIN (03/03/2024 3:24 PM EDT) Pathologist [facility] Procalcitonin 0.08 <0.10 ng/mL 03/03/2024 3:58 PM EDT LABORATORY [facility] Blood Venous blood specimen / Unknown Venipuncture / Unknown 03/03/2024 3:24 PM EDT 03/03/2024 3:27 PM EDT Narrative LABORATORY [facility] - 03/03/2024 3:58 PM EDT Less than 0.5 ng/mL: Low risk for progression to sepsis. Review patients condition for localized infections. 0.5 to 2.0 ng/mL: Intermediate risk for progresion to sepsis. Review underlying conditions. Recommend repeat PCT after 6 hours has elapsed. Greater than 2.0 ng/mL: high risk for progression to sepsis unless other causes are known. [facility] Performing Organization Address [facility] Co de Phone Number LABORATORY [address] [address] * (ABNORMAL) CRP (INFLAMMATORY MARKER) (03/03/2024 3:24 PM EDT) Pathologist [facility] CRP (Inflammatory Marker) 47(H) <=5 mg/L 03/03/2024 4:09 PM EDT LABORATORY [facility] Blood Venous blood specimen / Unknown Venipuncture / Unknown 03/03/2024 3:24 PM EDT 03/03/2024 3:27 PM EDT Jolene Carranza DO LAB BLOOD ORDERABLES LABORATORY [facility] [address] [place] [address] * (ABNORMAL) COMPREHENSIVE METABOLIC PANEL (03/03/2024 3:24 PM EDT) BUN 22(H) 6 - 20 mg/dL 03/03/2024 4:09 PM EDT LABORATORY [facility] Creatinine 0.9 0.6 - 1.2 mg/dL 03/03/2024 4:09 PM EDT LABORATORY [facility] Estimated Glomerular Filtration Rate >90 >=60 mL/min 03/03/2024 4:09 PM EDT LAB[facility]ATORY [facility] Comment:eGFR is calculated b ased on the CKD-EPI 2020 equation Sodium 136 135 - 146 mmol/L 03/03/2024 4:09 PM EDT LAB[facility]ATORY [facility] Potassium 4.8 3.5 - 5.1 mmol/L 03/03/2024 4:09 PM EDT LAB[facility]ATORY [facility] Chloride 96(L) 98 - 107 mmol/L 03/03/2024 4:09 PM EDT LAB[facility]ATORY [facility] CO2 25 22 - 32 mmol/L 03/03/2024 4:09 PM EDT LAB[facility]ATORY [facility] Anion Gap 15 7 - 15 mmol/L 03/03/2024 4:09 PM EDT LAB[facility]ATORY [facility] Glucose 140(H) 70 - 120 mg/dL 03/03/2024 4:09 PM EDT LAB[facility]ATORY [facility] Albumin 4.1 3.8 - 5.0 g/dL 03/03/2024 4:09 PM EDT LAB[facility]ATORY [facility] AST 16 10 - 50 U/L 03/03/2024 4:09 PM EDT LAB[facility]ATORY [facility] Alkaline Phosphatase 116 35 - 130 U/L 03/03/2024 4:09 PM EDT LAB[facility]ATORY [facility] Bilirubin, Total 0.3 <=1.2 mg/dL 03/03/2024 4:09 PM EDT LAB[facility]ORY [facility] Calcium 10.1 8.4 - 10.2 mg/dL 03/03/2024 4:09 PM EDT LAB[facility]ORY [facility] Protein 7.5 6.0 - 8.3 g/dL 03/03/2024 4:09 PM EDT LABORATORY GL ALT 14 10 - 50 U/L 03/03/2024 4:09 PM EDT LABORATORY [facility] Blood Venous blood specimen / Unknown Venipuncture / Unknown 03/03/2024 3:24 PM EDT 03/03/2024 3:27 PM EDT Jolene Fozia Carranza DO LAB BLOOD ORDERABLES LABORATORY [facility] [address] [place] [address] documented in this encounter Visit Diagnoses Diagnosis Cellulitis of left lower extremity- Primary Cellulitis and abscess of leg, except foot Tachycardia Tachycardia, unspecified Charcot's arthropathy Tabes dorsalis Post-operative infection Other postoperative infection Chest pain Chest pain, unspecified Type 2 diabetes mellitus with hemoglobin A1c goal of less than 7.0% (HCC) Morbid obesity (HCC) Morbid obesity Diabetic polyneuropathy associated with type 2 diabetes mellitus (HCC) COPD, moderate (HCC) Chronic airway obstruction, not elsewhere classified Chronic respiratory failure with hypercapnia (HCC) Chronic respiratory failure Hyperlipidemia with target LDL less than 70 Other and unspecified hyperlipidemia Tobacco use disorder Restrictive lung disease secondary to obesity Other diseases of lung, not elsewhere classified Obstructive sleep apnea Obstructive sleep apnea (adult) (pediatric) Charcot ankle, left S/P hardware removal Other postprocedural status Ankle wound, left, initial encounter documented in this encounter Administered Medications Inactive Administered Medications - up to 3 most recent administrations Medication Order MAR Action Action Date Dose Rate Site Acetaminophen (Tylenol) tab 650 mg 650 mg, Oral, Q6H, First dose on Wed03/03/24 at 1830, Until Discontinued, Maximum of 4 grams (4000 mg) per day. Given 03/06/2024 11:35 AM EDT 650 mg Given 03/06/2024 5:46 AM EDT 650 mg Given 03/05/2024 10:40 PM EDT 650 mg Acetaminophen (Tylenol) tab 975 mg 975 mg, Oral, ONCE, On Wed03/03/24 at 1715, For 1 dose, Maximum of 4 grams (4000 mg) per day. Given 03/03/2024 4:44 PM EDT 975 mg aspirin enteric coated tab 81 mg 81 mg, Oral, Daily(AM), First dose on Wed03/04/24 at 0900, Until Discontinued Given 03/06/2024 9:27 AM EDT 81 mg Given 03/05/2024 8:32 AM EDT 81 mg Given 03/04/2024 9:18 AM EDT 81 mg atorvaSTATin (Lipitor) tab 20 mg 20 mg, Oral, Daily(AM), First dose on Wed03/04/24 at 0900, Until Discontinued Given 03/06/2024 9:27 AM EDT 20 mg Given 03/05/2024 8:32 AM EDT 20 mg Given 03/04/2024 9:17 AM EDT 20 mg Bisacodyl (Dulcolax) supp 10 mg 10 mg, Rectal, DAILY PRN Constipation, Starting on Wed03/06/24 at 1755, Until Wed03/06/24 at 1815, Administer if no bowel movement within past 72 hours and patient unable to take oral medications. Bisacodyl (Dulcolax) tab 5 mg 5 mg, Oral, DAILY PRN Constipation, Starting on Wed03/06/24 at 1755, Until Wed03/06/24 at 1815, Administer in addition to polyethylene glycol and senna-docusate if no bowel movement in past 72 hours. dicyclomine (Bentyl) cap 10 mg 10 mg, Oral, QID(AM/NOON/PM/HS), First dose on Wed03/03/24 at 1930, Until Discontinued Given 03/06/2024 11:35 AM EDT 10 mg Given 03/06/2024 5:46 AM EDT 10 mg Given 03/05/2024 8:29 PM EDT 10 mg Drug Level Check - Vancomycin Random ONCE - TIMED LAB, 1 dose, First dose on Wed03/08/24 at 0600, STAT, Colt as Order Check Addressed once lab level is drawn. If antibiotic time changes, please contact the Pharmacy to adjust Lab and Drug Level Check times. Famotidine (Pepcid) tab 20 mg 20 mg, Oral, QHS, First dose on Wed03/03/24 at 2200, Until Discontinued Given 03/05/2024 8:28 PM EDT 20 mg Given 03/04/2024 9:37 PM EDT 20 mg Given 03/03/2024 10:09 PM EDT 20 mg fluticasone furoate-vilanterol (BREO ellipta) 100-25 MCG/ACT inhaler 1 Puff 1 Puff, Inhalation, Daily(AM), First dose on Wed03/04/24 at 0900, Until Discontinued Given 03/06/2024 7:52 AM EDT 1 Pu ff Given 03/05/2024 7:43 AM EDT 1 Puff Given 03/04/2024 10:50 AM EDT 1 Puff Gabapentin (Neurontin) cap 200 mg 200 mg, Oral, BID (.AM/PM), First dose on Wed03/03/24 at 2100, Until Discontinued Given 03/06/2024 9:27 AM EDT 200 mg Given 03/05/2024 8:28 PM EDT 200 mg Given 03/05/2024 8:31 AM EDT 200 mg gadobutrol (Gadavist) inj 14.9 mL 14.9 mL (rounded from 14.86 mL = 0.1 mL/kg 148.6 kg), Intravenous, ONCE, On Wed03/04/24 at 0830, For 1 dose, Radiology Medication Routing (Non-IR) Given 03/04/2024 8:30 AM EDT Antecubital Right insulin aspart (NovoLOG) inj Subcutaneous, W/MEALS AND HS, First dose on Wed03/03/24 at 2200, Until Discontinued, HIGH DOSE (Moderately Insulin Resistance): Sliding Scale Correctional insulin may be given if the patient is NPO. Dose based on standard build from Insulin Calculator. Do not modify insulin doses in administration instructions! , Glucose less than 70 instructions: Obtain STAT lab blood glucose and call covering provider., Glucose 80-150 (units): 0, Glucose 151-200 (units): 3, Glucose 201-250 (units): 6, Glucose 251-300 (units): 9, Glucose greater than 300 (units): 12, Glucose greater than 300 instructions: Give suggested insulin dose and call covering provider. Given 03/06/2024 11:36 AM EDT 9 Units Arm Right Upper Given 03/06/2024 9:26 AM EDT 3 Units Ar m Left Upper Given 03/05/2024 9:45 PM EDT 6 Units Ar m Right Upper Insulin Glargine (Lantus) inj 30 Units 30 Units, Subcutaneous, BID (.AM/PM), First dose on Wed03/03/24 at 2100, Until Discontinued Given 03/06/2024 9:25 AM EDT 30 Units Arm Right Upper Given 03/05/2024 9:46 PM EDT 30 Units Ar m Left Upper Given 03/05/2024 8:28 AM EDT 30 Units Ar m Left Upper isolyte-S pH 7.4 infusion Intravenous, at 100 mL/hr, Plasma-LYTE 148, isolyte-S, and isolyte-S pH 7.4 are considered equivalent - including for MAR barcode scanning., CONTINUOUS, Starting on Wed03/03/24 at 1830, Until Wed03/04/24 at 0429 Restarted 03/04/2024 6:07 AM EDT 100 mL/hr Rate Verify 03/03/2024 11:00 PM EDT 100 mL/hr New Bag 03/03/2024 8:17 PM EDT 100 mL/hr metoprolol succinate XL (toPROL XL) tab 100 mg 100 mg, Oral, BID (.AM/PM), First dose on Wed03/03/24 at 2100, Until Discontinued, Hold for HR less than 60 or SBP below 100 and notify service if dose is held This med should NOT be Crushed or Chewed. Given 03/06/2024 9:27 AM EDT 100 mg Given 03/05/2024 8:28 PM EDT 100 mg Given 03/05/2024 8:32 AM EDT 100 mg morphine sulfate inj 2 mg 2 mg, IV Push, Q4H PRN Pain, Breakthrough, Starting on Wed03/04/24 at 1354, Until Wed03/06/24 at 1815 Given 03/06/2024 1:59 PM EDT 2 mg Given 03/05/2024 10:38 PM EDT 2 mg Given 03/05/2024 6:28 PM EDT 2 mg morphine sulfate inj 2 mg 2 mg, IV Push, ONCE, On Wed03/06/24 at 0130, For 1 dose Given 03/06/2024 1:06 AM EDT 2 mg Nicotine (Nicoderm CQ) 21 MG/24HR patch 1 Patch 1 Patch, Transdermal, Daily(AM), First dose on Wed03/04/24 at 0900, Until Discontinued, Do NOT cut the patch. Remove any Nicotine patches the patient may currently be wearing prior to applying the new patch. Place on clean hairless area. Remove for patient showers. WASTE INFO: Return packaging and waste medication in zip lock bag to pharmacy - [facility] container. Patch Applied 03/05/2024 8:30 AM EDT 1 Patch Arm Left Upper Patch Applied 03/04/2024 9:19 AM EDT 1 Patch Arm Right Upper oxyCODONE (Oxy IR) tab 5 mg 5 mg, Oral, ONCE, On Wed03/03/24 at 1545, For 1 dose Given 03/03/2024 3:15 PM EDT 5 mg oxyCODONE (Oxy IR) tab 5 mg 5 mg, Oral, ONCE, On Wed03/03/24 at 1715, For 1 dose Given 03/03/2024 4:44 PM EDT 5 mg oxyCODONE (Oxy IR) tab 5 mg 5 mg, Oral, Q6H PRN Pain, Moderate, Pain, Severe, Starting on 03/04/24 at 1353, Until 03/06/24 at 1815 Given 03/06/2024 11:34 AM EDT 5 mg Given 03/06/2024 5:47 AM EDT 5 mg Given 03/05/2024 8:28 PM EDT 5 mg pantoprazole (Protonix) tab 40 mg 40 mg, Oral, BID (.AM/PM), First dose on Wed03/03/24 at 2100, Until Discontinued, This med should NOT be Crushed or Chewed Given 03/06/2024 9:27 AM EDT 40 mg Given 03/05/2024 8:29 PM EDT 40 mg Given 03/05/2024 8:32 AM EDT 40 mg Piperacillin-Tazobactam (Zosyn) 4.5 g in 100 mL NSS ivpb (FOUR hour infusion) IV Piggyback, 4.5 g, Q8HNOW, 15 doses, First dose on Wed03/03/24 at 2200, Last dose on Wed03/08/24 at 1400, Administer over 4 Hours, at 27.5 mL/hr New Bag 03/06/2024 5:52 AM EDT 4.5 g 27.5 mL/hr Restarted 03/06/2024 1:13 AM EDT 1.125 g/hr 27.5 mL/hr New Bag 03/05/2024 10:49 PM EDT 4.5 g 27.5 mL/hr Piperacillin-Tazobactam (Zosyn) 4.5 g in 100 mL NSS ivpb (HALF hour infusion) IV Piggyback, 4.5 g, ONCE, 1 dose, On Wed03/03/24 at 1730, Administer over 30 Minutes Restarted 03/03/2024 6:36 PM EDT 9 g/hr 220 mL/hr Restarted 03/03/2024 6:13 PM EDT 9 g/hr 220 mL/hr New Bag 03/03/2024 5:24 PM EDT 4.5 g 220 mL/hr Piperacillin-Tazobactam (Zosyn) 4.5 g in 100 mL NSS ivpb (HALF hour infusion) 4.5 g, IV Piggyback, Q6H, 7 doses, First dose on Wed03/06/24 at 1330, Last dose on Wed03/08/24 at 0000, Administer over 30 Minutes New Bag 03/06/2024 1:52 PM EDT 4.5 g 220 mL/hr Polyethylene Glycol 3350 (Miralax) oral powder 17 g 17 g (1 Packet), Oral, DAILY PRN Constipation, Starting on Wed03/03/24 at 1755, Until Wed03/06/24 at 1815, Administer if no bowel movement within past 24 hours. senna-docusate (Senokot-S) 1 Tablet 1 Tablet, Oral, BID PRN Constipation, Starting on Wed03/05/24 at 1755, Until Wed03/06/24 at 1815, Administer in addition to polyethylene glycol if no bowel movement within past 48 hours. sodium chloride 0.9 % flush peripheral bradley 3 mL 3 mL, IV Push, QSHIFT, First dose on Wed03/04/24 at 0000, Until Discontinued, Do not flush if lock, PICC, or central line not in place; IV infusing or unable to flush. Given 03/06/2024 12:00 AM EDT 3 mL Given 03/05/2024 4:00 PM EDT 3 mL Given 03/05/2024 12:00 AM EDT 3 mL sodium chloride 0.9 % flush/inj 10 mL 10 mL, IV Push, ONCE, On 03/04/24 at 0830, For 1 dose, Do not flush if lock, PICC, or central line not in place; IV infusing or unable to flush., Radiology Medication Routing (Non-IR) Given 03/04/2024 8:30 AM EDT 10 mL Forea rm Right traMADol (Ultram) tab 50 mg 50 mg, Oral, Q6H PRN Pain, Severe, Starting on Wed03/03/24 at 1751, Until Wed03/04/24 at 1353 Given 03/04/2024 4:36 AM EDT 50 mg Given 03/03/2024 10:17 PM EDT 50 mg Vancomycin (Vancocin) 1250 mg in NSS 250 mL ivpb 1,250 mg, IV Piggyback, Q12H, First dose on Wed03/04/24 at 2100, Until Discontinued New Bag 03/04/2024 9:45 PM EDT 1,250 mg 191.67 mL/hr Vancomycin (Vancocin) 1750 mg in NSS 500 mL 1,750 mg, IV Piggyback, [id number], First dose on Wed03/04/24 at 0630, Until Discontinued Rate Verify 03/04/2024 6:11 AM EDT 875 mg/hr 258.5 mL/hr Restarted 03/04/2024 5:35 AM EDT 875 mg/hr 258.5 mL/hr New Bag 03/04/2024 4:45 AM EDT 1,750 mg 258.75 mL/hr Vancomycin (Vancocin) 1750 mg in NSS 500 mL 1,750 mg, IV Piggyback, Q12H, First dose (after last modification) on Wed03/05/24 at 0900, Until Discontinued Rate Verify 03/06/2024 10:02 AM EDT 875 mg/hr 283.5 mL/hr New Bag 03/06/2024 9:51 AM EDT 1,750 mg 283.75 mL/hr New Bag 03/05/2024 8:26 PM EDT 1,750 mg 283.75 mL/hr vancomycin (Vancocin) 2500 mg in NSS 500 mL ivpb 2,500 mg, IV Piggyback, ONCE, 1 dose, On Wed03/03/24 at 1745 New Bag 03/03/2024 6:45 PM EDT 2,500 mg 21 0 mL/hr vancomycin per pharmacy order Routine, NURSING: THIS IS TO REMIND YOU THAT PHARMACY WILL BE PLACING ORDERS FOR THIS MEDICATION --- NO DOCUMENTATION OF ADMIN OR ADDRESSED IS REQUIRED ON THIS ORDER documented in this encounter Active and Recently Administered Medications Times are shown in EDT. Scheduled Medication Order 03/04/2024 03/05/2024 03/06/2024 Acetaminophen (Tylenol) tab 650 mg 650 mg, Oral, Q6H, First dose on Wed03/03/24 at 1830, Until Discontinued, Maximum of 4 grams (4000 mg) per day. 0605 (Given - Provider: Lisa Ladd RN)1200 (Given - Provider: Charleen Vieira RN)1800 (Given - Provider: Charleen Vieira RN)2245 (Given - Provider: Sam Holley RN) 0405 (Given - Provider: Sam Holley RN)1135 (Given - Provider: Charleen Vieira RN)1717 (Given - Provider: Charleen Vieira RN)2240 (Given - Provider: Sam Holley RN) 0546 (Given - Provider: Sam Holley RN)1135 (Given - Provider: SN Vishal) aspirin enteric coated tab 81 mg 81 mg, Oral, Daily(AM), First dose on Wed03/04/24 at 0900, Until Discontinued 0918 (Given - Provider: Charleen Vieira RN) 0832 (Given - Provider: Charleen Vieira RN) 0927 (Given - Provider: SN Vishal) atorvaSTATin (Lipitor) tab 20 mg 20 mg, Oral, Daily(AM), First dose on Wed03/04/24 at 0900, Until Discontinued 0917 (Given - Provider: Charleen Vieira RN) 0832 (Given - Provider: Charleen Vieira RN) 0927 (Given - Provider: SN Vishal) dicyclomine (Bentyl) cap 10 mg 10 mg, Oral, QID(AM/NOON/PM/HS), First dose on Wed03/03/24 at 1930, Until Discontinued 0605 (Given - Provider: Lisa Ladd RN)1200 (Given - Provider: Charleen Vieira RN)1800 (Given - Provider: Charleen Vieira RN)213 (Given - Provider: Sam Holley RN) 0406 (Given - Provider: Sam Holley RN)1135 (Given - Provider: Charleen Vieira RN)1717 (Given - Provider: Charleen Vieira RN)2028 (Given - Provider: Sam Holley RN) 0546 (Given - Provider: Sam Holley RN)1135 (Given - Provider: SN Vishal) Drug Level Check - Vancomycin Random ONCE - TIMED LAB, 1 dose, First dose on Wed03/06/24 at 0600, STAT, Cotl as Order Check Addressed once lab level is drawn. If antibiotic time changes, please contact the Pharmacy to adjust Lab and Drug Level Check times. 0600 (Order Check Addressed - Provider: Sam Holley RN) Drug Level Check - Vancomycin Random ONCE - TIMED LAB, 1 dose, First dose on Wed03/08/24 at 0600, STAT, Colt as Order Check Addressed once lab level is drawn. If antibiotic time changes, please contact the Pharmacy to adjust Lab and Drug Level Check times. Famotidine (Pepcid) tab 20 mg 20 mg, Oral, QHS, First dose on Wed03/03/24 at 2200, Until Discontinued 2136 (Given - Provider: Sam Holley RN) 2027 (Given - Provider: Sam Holley RN) fluticasone furoate-vilanterol (BREO ellipta) 100-25 MCG/ACT inhaler 1 Puff 1 Puff, Inhalation, Daily(AM), First dose on Wed03/04/24 at 0900, Until Discontinued 1050 (Given - Provider: Lyla Vargas, CONNER) 0743 (Given - Provider: Shaan Nick, CONNER) 0752 (Given - Provider: Shaan Nick, CONNER) Gabapentin (Neurontin) cap 200 mg 200 mg, Oral, BID (.AM/PM), First dose on Wed03/03/24 at 2100, Until Discontinued 0917 (Given - Provider: Charleen Vieira RN)2136 (Given - Provider: Sam Holley RN) 0831 (Given - Provider: Charleen Vieira RN)2027 (Given - Provider: Sam Holley RN) 0927 (Given - Provider: SN Vishal) gadobutrol (Gadavist) inj 14.9 mL (COMPLETED) 14.9 mL (rounded from 14.86 mL = 0.1 mL/kg 148.6 kg), Intravenous, ONCE, On Wed03/04/24 at 0830, For 1 dose, Radiology Medication Routing (Non-IR) 0830 (Given - Provider: Trinh Nuñez, RT (R)) insulin aspart (NovoLOG) inj Subcutaneous, W/MEALS AND HS, First dose on Wed03/03/24 at 2200, Until Discontinued, HIGH DOSE (Moderately Insulin Resistance): Sliding Scale Correctional insulin may be given if the patient is NPO. Dose based on standard build from Insulin Calculator. Do not modify insulin doses in administration instructions! , Glucose less than 70 instructions: Obtain STAT lab blood glucose and call covering provider., Glucose 80-150 (units): 0, Glucose 151-200 (units): 3, Glucose 201-250 (units): 6, Glucose 251-300 (units): 9, Glucose greater than 300 (units): 12, Glucose greater than 300 instructions: Give suggested insulin dose and call covering provider. 0916 (Given - Provider: Charleen Vieira RN)1200 (Given - Provider: Charleen Vieira RN)1701 (Given - Provider: Charleen Vieira RN)2245 (Given - Provider: Sam Holley RN) 0828 (Given - Provider: Charleen Vieira RN)1135 (Given - Provider: Charleen Vieira RN)1717 (Given - Provider: Charleen Vieira RN)214 (Given - Provider: Sam Holley RN) 0926 (Given - Provider: SN Vishal)113 (Given - Provider: SN Vishal) Insulin Glargine (Lantus) inj 30 Units 30 Units, Subcutaneous, BID (.AM/PM), First dose on Wed03/03/24 at 2100, Until Discontinued 0916 (Given - Provider: Charleen Vieira RN)2245 (Given - Provider: Sam Holley RN) 0828 (Given - Provider: Charleen Vieira RN)214 (Given - Provider: Sam Holley RN) 0925 (Given - Provider: SN Vishal) metoprolol succinate XL (toPROL XL) tab 100 mg 100 mg, Oral, BID (.AM/PM), First dose on Wed03/03/24 at 2100, Until Discontinued, Hold for HR less than 60 or SBP below 100 and notify service if dose is held This med should NOT be Crushed or Chewed. 0917 (Given - Provider: Charleen Vieira RN)2136 (Given - Provider: Sam Holley RN) 08 (Given - Provider: Charleen Vieira RN)2027 (Given - Provider: Sam Holley RN) 09 (Given - Provider: SN Vishal) morphine sulfate inj 2 mg (COMPLETED) 2 mg, IV Push, ONCE, On Wed03/06/24 at 0130, For 1 dose 0106 (Given - Provider: Sam Holley RN) Nicotine (Nicoderm CQ) 21 MG/24HR patch 1 Patch 1 Patch, Transdermal, Daily(AM), First dose on Wed03/04/24 at 0900, Until Discontinued, Do NOT cut the patch. Remove any Nicotine patches the patient may currently be wearing prior to applying the new patch. Place on clean hairless area. Remove for patient showers. WASTE INFO: Return packaging and waste medication in zip lock bag to pharmacy - [facility] container. 0919 (Patch Applied - Provider: Charleen Vieira RN) 0830 (Patch Applied - Provider: Charleen Vieira RN)0859 (Patch Removed - Provider: Charleen Vieira RN) 0926 (Patch Removed - Provider: SN Vishal)0934 (Not Given - Provider: SN Vishal - Reason: Refused-Notify Provider) pantoprazole (Protonix) tab 40 mg 40 mg, Oral, BID (.AM/PM), First dose on Wed03/03/24 at 2100, Until Discontinued, This med should NOT be Crushed or Chewed 0918 (Given - Provider: Charleen Vieira RN)2136 (Given - Provider: Sam Holley RN) 0832 (Given - Provider: Charleen Vieira RN)2028 (Given - Provider: Sam Holley RN) 09 (Given - Provider: Beth Tenkiller, SN) Piperacillin-Tazobactam (Zosyn) 4.5 g in 100 mL NSS ivpb (FOUR hour infusion) (CANCELED) IV Piggyback, 4.5 g, Q8HNOW, 15 doses, First dose on Wed03/03/24 at 2200, Last dose on Wed03/08/24 at 1400, Administer over 4 Hours, at 27.5 mL/hr 0216 (Stopped - Provider: Lisa Ladd RN)0615 (New Bag - Provider: Lisa Ladd RN)0718 (Paused - Provider: Sam Holley RN)0903 (Restarted - Provider: Sam Holley, NEPTALI)1201 (Stopped - Provider: Sam Holley RN)1339 (New Bag - Provider: Charleen Vieira RN)1740 (Stopped - Provider: Sam Holley, NEPTALI)2322 (New Bag - Provider: Sam Holley, NEPTALI) 0121 (Paused - Provider: Sam Holley RN)0124 (Restarted - Provider: Sam Holley RN)0127 (Paused - Provider: Sam Holley, NEPTALI)0129 (Restarted - Provider: Sam Holley, NEPTALI)0130 (Paused - Provider: Sam Holley, NEPTALI)0133 (Restarted - Provider: Sam Holley, NEPTALI)0428 (Rate Verify - Provider: Sam Holley RN)0519 (New Bag - Provider: Sam Holley RN)0916 (Stopped - Provider: Emily Virgen RN)1410 (New Bag - Provider: Charleen Vieira RN)1813 (Stopped - Provider: Emily Virgen, NEPTALI)2249 (New Bag - Provider: Sam Holley RN) 0108 (Paused - Provider: Emily Virgen RN)0113 (Restarted - Provider: Emily Virgen RN)0254 (Stopped - Provider: Emily Virgen, NEPTALI)0552 (New Bag - Provider: Sam Holley RN)0953 (Stopped - Provider: Emily Virgen, NEPTALI) Piperacillin-Tazobactam (Zosyn) 4.5 g in 100 mL NSS ivpb (HALF hour infusion) 4.5 g, IV Piggyback, Q6H, 7 doses, First dose on Wed03/06/24 at 1330, Last dose on Wed03/08/24 at 0000, Administer over 30 Minutes 1352 (New Bag - Provider: Nely Rico RN)1815 (Due: Stopped) sodium chloride 0.9 % flush peripheral bradley 3 mL 3 mL, IV Push, QSHIFT, First dose on 03/04/24 at 0000, Until Discontinued, Do not flush if lock, PICC, or central line not in place; IV infusing or unable to flush. 0000 (Not Given - Provider: Lisa Ladd RN - Reason: Parameter(s) Not Met)0800 (Not Given - Provider: Charleen Vieira RN - Reason: Parameter(s) Not Met)1600 (Not Given - Provider: Charleen Vieira RN - Reason: Parameter(s) Not Met) 0000 (Given - Provider: Sam Holley RN)0800 (Not Given - Provider: Charleen Vieira RN - Reason: Parameter(s) Not Met)1600 (Given - Provider: Charleen Vieira RN) 0000 (Given - Provider: Sam Holley RN)0800 (Not Given - Provider: SN Vishal - Reason: Other-Notify Provider) sodium chloride 0.9 % flush/inj 10 mL (COMPLETED) 10 mL, IV Push, ONCE, On 03/04/24 at 0830, For 1 dose, Do not flush if lock, PICC, or central line not in place; IV infusing or unable to flush., Radiology Medication Routing (Non-IR) 0830 (Given - Provider: Trinh Nuñez, RT (R)) Vancomycin (Vancocin) 1250 mg in NSS 250 mL ivpb (CANCELED) 1,250 mg, IV Piggyback, Q12H, First dose on 03/04/24 at 2100, Until Discontinued 2144 (New Bag - Provider: Sam Holley RN)2315 (Stopped - Provider: Sam Holley RN) Vancomycin (Vancocin) 1750 mg in NSS 500 mL (CANCELED) 1,750 mg, IV Piggyback, [id number], First dose on 03/04/24 at 0630, Until Discontinued 0445 (New Bag - Provider: Lisa Ladd RN)0514 (Paused - Provider: Lisa Ladd RN)0535 (Restarted - Provider: Lisa Ladd RN)0611 (Rate Verify - Provider: Lisa Ladd RN)0848 (Stopped - Provider: Charleen Vieira RN) Vancomycin (Vancocin) 1750 mg in NSS 500 mL 1,750 mg, IV Piggyback, Q12H, First dose (after last modification) on Wed03/05/24 at 0900, Until Discontinued 0922 (New Bag - Provider: Charleen Vieira RN)0956 (Paused - Provider: Emily Virgen RN)1047 (Restarted - Provider: Emily Virgen RN)1047 (Paused - Provider: Emily Virgen RN)1050 (Restarted - Provider: Emily Virgen RN)1218 (Stopped - Provider: Emily Virgen RN)2026 (New Bag - Provider: Sam Holley RN)2213 (Stopped - Provider: Emily Virgen RN) 0951 (New Bag - Provider: SN Vishal)1002 (Rate Verify - Provider: Emily Virgen RN)1151 (Stopped - Provider: SN Vishal) vancomycin per pharmacy order Routine, NURSING: THIS IS TO REMIND YOU THAT PHARMACY WILL BE PLACING ORDERS FOR THIS MEDICATION --- NO DOCUMENTATION OF ADMIN OR ADDRESSED IS REQUIRED ON THIS ORDER Continuous Medication Order 03/04/2024 03/05/2024 03/06/2024 isolyte-S pH 7.4 infusion (CANCELED) Intravenous, at 100 mL/hr, Plasma-LYTE 148, isolyte-S, and isolyte-S pH 7.4 are considered equivalent - including for MAR barcode scanning., CONTINUOUS, Starting on Wed03/03/24 at 1830, Until 03/04/24 at 0429 0602 (Paused - Provider: Lisa Ladd RN)0607 (Restarted - Provider: Lisa Ladd RN)0608 (Stopped - Provider: Lisa Ladd RN) PRN Medication Order 03/04/2024 03/05/2024 03/06/2024 albuterol (VENTOLIN HFA/PROVENTIL HFA) inhaler 2 Puff, Inhalation, Q4H PRN Dyspnea, Starting on Wed03/03/24 at 1751, Until Wed03/06/24 at 1815, Shake can for 10 seconds before each puff SEND INHALER WITH PATIENT! WASTE INFO ( IF NOT SENT HOME WITH PATIENT) : Return unused medication to pharmacy in zip lock bag for disposal into black container labeled SP. Bisacodyl (Dulcolax) supp 10 mg(Linked Group 1) 10 mg, Rectal, DAILY PRN Constipation, Starting on Wed03/06/24 at 1755, Until Wed03/06/24 at 181, Administer if no bowel movement within past 72 hours and patient unable to take oral medications. Bisacodyl (Dulcolax) tab 5 mg(Linked Group 1) 5 mg, Oral, DAILY PRN Constipation, Starting on Wed03/06/24 at 1755, Until Wed03/06/24 at 181, Administer in addition to polyethylene glycol and senna-docusate if no bowel movement in past 72 hours. cyclobenzaprine (Flexeril) tab 10 mg 10 mg, Oral, HS PRN Muscle spasms, Starting on Wed03/03/24 at 1753, Until Wed03/06/24 at 1815 dextrose 50% inj 25 mL 25 mL, IV Push, PRN Hypoglycemia, Other, For blood glucose 54 - 69 mg/dL or 70 - 100 mg/dL with symptoms AND patient is unresponsive, NPO, OR unable to swallow, Starting on Wed03/03/24 at 1755, Until Wed03/06/24 at 181, Administer IV. Recheck blood glucose after 15 minutes. Notify provider. dextrose 50% inj 50 mL 50 mL, IV Push, PRN Hypoglycemia, Other, For blood glucose below 54 mg/dL AND patient unresponsive, NPO, OR unable to swallow, Starting on Wed03/03/24 at 1755, Until Wed03/06/24 at 1815, Administer IV. Recheck blood glucose in 15 minutes. Notify provider. glucagon (Glucagen) inj 1 mg 1 mg, Intramuscular, PRN Hypoglycemia, Other, If patient is unresponsive, or NPO and has no IV access, Starting on Wed03/03/24 at 1755, Until Wed03/06/24 at 1815, NPO and no IV access with either [...] patient alert WITH difficulty chewing/swallowing, Starting on Wed03/03/24 at 1755, Until Wed03/06/24 at 1815, Administer gel. Recheck blood glucose after 15 minutes. Notify provider. 37.5 gram tube = 15 grams glucose = 1 each Glucose (Glutose 15) 40 % gel 30 g of glucose 30 g of glucose, Oral, PRN Hypoglycemia (low sugar), Other, For blood glucose below 54 mg/dL AND patient alert WITH difficulty chewing/swallowing, Starting on Wed03/03/24 at 1755, Until Wed03/06/24 at 1815, Administer gel. Recheck blood glucose after 15 minutes. Notify provider. 37.5 gram tube = 15 grams glucose = 1 each glucose chew tab 16 g 16 g, Oral, PRN Hypoglycemia, Other, For blood glucose 54 - 69 mg/dL or 70 - 100 mg/dL with symptoms and patient alert without difficulty chewing/swallowing., Starting on Wed03/03/24 at 1755, Until Wed03/06/24 at 1815 melatonin tab 3 mg 3 mg, Oral, HS PRN Insomnia, Starting on Wed03/03/24 at 1755, Until Wed03/06/24 at 1815 morphine sulfate inj 2 mg 2 mg, IV Push, Q4H PRN Pain, Breakthrough, Starting on Wed03/04/24 at 1354, Until Wed03/06/24 at 1815 1619 (Given - Provider: Charleen Vieira RN)2316 (Given - Provider: Sam Holley RN) 1828 (Given - Provider: Charleen Vieira RN)2238 (Given - Provider: Sam Holley RN) 1359 (Given - Provider: SN Vishal) ondansetron (Zofran) inj 4 mg 4 mg, IV Push, Q6H PRN Nausea, Starting on Wed03/03/24 at 1755, Until Wed03/06/24 at 1815 oxyCODONE (Oxy IR) tab 5 mg 5 mg, Oral, Q6H PRN Pain, Moderate, Pain, Severe, Starting on 03/04/24 at 1353, Until 03/06/24 at 1815 1506 (Given - Provider: Charleen Vieira RN)2136 (Given - Provider: Sam Holley RN) 0405 (Given - Provider: Sam Holley RN)1135 (Given - Provider: Charleen Vieira RN - Comment: 02/24 LLE pain)202 (Given - Provider: Sam Holley RN) 0547 (Given - Provider: Sam Hloley RN)1134 (Given - Provider: SN Vishal) Polyethylene Glycol 3350 (Miralax) oral powder 17 g(Linked Group 1) 17 g (1 Packet), Oral, DAILY PRN Constipation, Starting on Wed03/03/24 at 1755, Until Wed03/06/24 at 1815, Administer if no bowel movement within past 24 hours. senna-docusate (Senokot-S) 1 Tablet(Linked Group 1) 1 Tablet, Oral, BID PRN Constipation, Starting on Wed03/05/24 at 1755, Until Wed03/06/24 at 1815, Administer in addition to polyethylene glycol if no bowel movement within past 48 hours. sodium chloride 0.9 % flush/inj 3 mL 3 mL, IV Push, PRN Other, Line Patency, Starting on Wed03/03/24 at 1754, Until Wed03/06/24 at 1815, Do not flush if lock, PICC, or central line not in place, IV infusing or unable to flush traMADol (Ultram) tab 50 mg (CANCELED) 50 mg, Oral, Q6H PRN Pain, Severe, Starting on Wed03/03/24 at 1751, Until 03/04/24 at 1353 0436 (Given - Provider: Lisa Ladd RN) Linked Groups Order Group 1: Polyethylene Glycol 3350 (Miralax) oral powder 17 gJump to med 17 g (1 Packet), Oral, DAILY PRN Constipation, Starting on Wed03/03/24 at 1755, Until Wed03/06/24 at 1815, Administer if no bowel movement within past 24 hours. And senna-docusate (Senokot-S) 1 TabletJump to med 1 Tablet, Oral, BID PRN Constipation, Starting on Wed03/05/24 at 1755, Until 03/06/24 at 1815, Administer in addition to polyethylene glycol if no bowel movement within past 48 hours. And Bisacodyl (Dulcolax) tab 5 mgJump to med 5 mg, Oral, DAILY PRN Constipation, Starting on Wed03/06/24 at 1755, Until 03/06/24 at 1815, Administer in addition to polyethylene glycol and senna- docusate if no bowel movement in past 72 hours. And Bisacodyl (Dulcolax) supp 10 mgJump to med 10 mg, Rectal, DAILY PRN Constipation, Starting on Wed03/06/24 at 1755, Until Wed03/06/24 at 1815, Administer if no bowel movement within past 72 hours and patient unable to take oral medications. documented in this encounter Advance Directives * [...] Power of Attor niles? No Care Teams Public Address System Mechanic Relationship Specialty Start Date End Date Velasquez Valencia MD [address] [place] [address] PCP - General Family Medicine 09/09/22 documented as of this encounter
--- OUTSIDE RECORDS SUMMARY | 2024-07-14 04:52 | External Medical Summary | Summary of Care ---
Author Name Unknown Organization [facility] Address [address] [facility] [place] [place] [address] Phone [phone] Care Team Providers Care Cushion Stuffer Name Role Phone Velasquez Valencia MD Primary Care Provider +1- [phone] Reason for Visit * Reason Onset Date Comments Outpatient Testing 12/13/2023 Encounter Details Date Type Department Care Team (Late st Contact Info) Description 12/13/2023 Telephone Gastroenterology, [address] [address] Devora Gonzalez PA-C [address] [place] [id number] Outpatient Testing (/) Allergies Active Allergy [...] before MEALS ) 270 Tablet 1 08/03/20 Suspended Additional Information Mounjaro 15 MG/0.5ML Subcutaneous Solution Pen-injector (Tirzepatide)Ind ications:Type 2 diabetes mellitus with hemoglobin A1c goal of less than 7.0% ([facility]) Inject 15 mg under the skin [...] 1 Capsule before bedtime. 30 Capsule 11/05/19 Suspended Additional Information Polyethylene Glycol 3350 17 [...] as needed for Nausea. 20 Tablet 11/05/19 Suspended Additional Information Sennosides-Docus ate Sodium 8.6-50 [...] 7.0% ([facility]) Inject 40 units in the morning and [...] IM 11/04/2009 Pneumococcal Conjugate Vacci ne, 20-valent ([id number]) 07/09/2023 Pneumococcal Polysaccharide PPV23 (Pneumovax) 11/03/2015,02/09/2006 Seasonal [...] encounter Miscellaneous Notes * Telephone Encounter - Jaye Gilmore OSA - 03/06/2024 9:39 AM EDT Does patient need EUS * Telephone Encounter - Nini Pereira OSA - 03/02/2024 11:17 AM EDT Pt had egd on 02/21. Do they still need EUS? * Telephone Encounter - Devora Gonzalez PA-C - 12/13/2023 12:54 PM EST Pt admitted to [facility] for pancreatitis. Please arrange OP EUS in 6-8 weeks. Thanks Devoar Gonzalez PA-C 12/13/2023 Department of Gastroenterology documented in this encounter Plan of Treatment Upcoming Encounters Date Type Department Care Team (Late st Contact Info) Description 03/06/2024 10:15 AM EDT Scheduled Telephone Care Coordination and Integration [address] [place] [address] Emily Davidson [facility] [employer] [address] [place] [address] 05/08/2024 11:40 AM EDT Office Visit [facility] [address] [place] [address] Velasquez Valencia MD [address] [place] [address] Scheduled Orders Name Type Priority Associated [...] 11/27/2019, Additional history exists HbA1c 07/16/2024 01/14/2024, 022 03/2024, 10/27/2023, Additional history exists Diabetic Eye [...] this encounter Medical Devices Implanted Type Area Equipment Cleaner Device Identifier Shelf Expiration Date Model / Serial / Lot Suture [place] Dbl Load 4.75mm - [id number] Implanted:Qty: 1 on 12/01/2019 by Judith Condon, DO at OR [facility] Right: Shoulder [employer] 07/17/2021 AR-2324BCT -2 / / [id number] Suture [place] Dbl Load 5.5mm - [id number] Implanted:Qty: 1 on 12/01/2019 by Judith Condon DO at OR [facility] Right: Shoulder [employer] 09/16/2021 AR-2323BCT -2 / / [id number] documented as of this encounter Visit Diagnoses [...] Power of Attor niles? No Care Teams Cushion Stuffer Relationship Specialty Start Date End Date Velasquez Valencia MD [address] [place] [address] PCP - General Family Medicine 09/09/22 documented as of this encounter
--- OUTSIDE RECORDS SUMMARY | 2024-07-14 04:52 | External Medical Summary | Summary of Care ---
Author Name Unknown Organization [facility] Address [address] [facility] [place] [address] Phone [phone] Care Team Providers Care Personnel Scheduler Name Role Phone Velasquez Valencia MD Primary Care Provider +1- [phone] Encounter Details Date Type Department Care Team (Late st Contact Info) Description 03/07/2024 Population Health External Data Unspecified Department Allergies [...] ([facility]) Use to inject insulin 5 times daily 500 Each 3 01/19/2024 Active Insulin Aspart FlexPen 100 UNIT/ML Subcutaneous Solution Pen-injectorIndicat ions:Type 2 diabetes mellitus with hemoglobin A1c goal of less than 7.0% ([facility]) Inject 32 units with breakfast 22 units with lunch and 22 units with supper plus CF of 1:12 over 150. Max daily dose of 115 units 120 mL 4 02/16/2024 Active Pioglitazone HCl 45 MG Oral Tablet (Actos)Indications: Type 2 diabetes mellitus with hemoglobin A1c goal of less than 7.0% ([facility]) Take 1 Tablet by mouth [...] mRNA, LNP-s, No Pre serve, 2-Dose Series (Zhaogang) 10/21/2021,03/01/2021,02/07/2021 H1N1 2009 Influenza, IM 11/04/2009 Pneumococcal Conjugate Vacci ne, 20-valent ([id number]) 07/09/2023 Pneumococcal Polysaccharide PPV23 (Pneumovax) 11/03/2015,02/09/2006 Seasonal [...] Description 05/08/2024 11:40 AM EDT Office Visit [facility] [address] [facility] [place] [place] [address] Velasquez Valencia MD [address] [facility] [place] [place] [address] Scheduled Procedures Name Priority Associated Diagnoses Date/Ti [...] this encounter Medical Devices Implanted Type Area Kraft Mill Operator Device Identifier Shelf Expiration Date Model / Serial / Lot Suture [place] Dbl Load 4.75mm - [id number] Implanted:Qty: 1 on 12/01/2019 by Judith Condon DO at OR [facility] Right: Shoulder [employer] 07/17/2021 AR-2324BCT -2 / / [id number] Suture [place] Dbl Load 5.5mm - [id number] Implanted:Qty: 1 on 12/01/2019 by Judith Condon DO at OR [facility] Right: Shoulder [employer] 09/16/2021 AR-2323BCT -2 / / [id number] documented as of this encounter Advance Directives [...] Power of Attor niles? No Care Teams Personnel Scheduler Relationship Specialty Start Date End Date Velasquez Valencia MD [address] [place] [address] PCP - General Family Medicine 09/09/22 documented as of this encounter
--- OUTSIDE RECORDS SUMMARY | 2024-07-14 04:52 | External Medical Summary | Summary of Care ---
Author Name Unknown Organization [facility] Address [address] [facility] [place] [address] Phone [phone] Care Team Providers Care Rn Peritoneal Dialysis Name Role Phone Velasquez Valencia MD Primary Care Provider +1- [phone] Encounter Details Date Type Department Care Team (Late st Contact Info) Description 03/06/2024 Population Health External Data Unspecified Department Allergies [...] before MEALS ) 270 Tablet 1 08/03/2023 Suspended Additional Information Losartan Potassium 100 MG Oral Tablet (Cozaar) [...] Tablet 1 01/08/2024 Suspended Additional Information Timmy IsbelloStar 300 UNIT/ML Subcutaneous Solution Pen-injector (Insulin [...] 90 Tablet 4 02/16/2024 Suspended Additional Information Movantik 25 MG Oral Tablet (Naloxegol Oxalate) take 1 tablet by mouth in the morning 30 Tablet 02/22/2024 Suspended Additional Information Cyclobenzaprine HCl 10 MG Oral Tablet (Flexeril)Indicati ons:Lumbar disc herniation TAKE 1 TABLET BY MOUTH AT BEDTIME ONLY NEEDED 30 Tablet 02/21/2024 Suspended Additional Information traMADol HCl 50 MG [...] by mouth in the morning. 09/22/2023 Suspended documented as of this encounter (statuses as [...] IM 11/04/2009 Pneumococcal Conjugate Vacci ne, 20-valent ([id number]) 07/09/2023 Pneumococcal Polysaccharide PPV23 (Pneumovax) 11/03/2015,02/09/2006 Seasonal [...] Telephone Care Coordination and Integration [address] [place] [address] Emily Davidson, [facility] Director Of Program Management [address] [place] [address] 05/08/2024 11:40 AM EDT Office Visit [facility] [address] [place] [address] Velasquez Valencia MD [address] [place] [address] Scheduled Procedures Name Priority Associated [...] this encounter Medical Devices Implanted Type Area Bonderizer Device Identifier Shelf Expiration Date Model / Serial / Lot Suture [place] Dbl Load 4.75mm - [id number] Implanted:Qty: 1 on 12/01/2019 by Judith Condon DO at OR [facility] Right: Shoulder [employer] 07/17/2021 AR-2324BCT -2 / / [id number] Suture [place] Dbl Load 5.5mm - [id number] Implanted:Qty: 1 on 12/01/2019 by Judith Condon DO at OR [facility] Right: Shoulder [employer] 09/16/2021 AR-2323BCT -2 / / [id number] documented as of this encounter Advance Directives [...] Power of Attor niles? No Care Teams Rn Peritoneal Dialysis Relationship Specialty Start Date End Date Velasquez Valencia MD [address] [facility] [place] [address] PCP - General Family Medicine 09/09/22 documented as of this encounter
--- OUTSIDE RECORDS SUMMARY | 2024-07-14 04:53 | External Medical Summary ---
Author Name Unknown Address Unknown Organization : Laboratory Report Ordering Provider Test Date Status SHARI ROUSSEAU 03/04/2024 07:20:15 Final Observation Date Value Abnormality Reference (Units ) Status Glucose Point of Care 03/04/2024 07:20:15 170 Above high normal 70-120 (mg/dL) Final Performing Location
--- OUTSIDE RECORDS SUMMARY | 2024-07-14 04:53 | External Medical Summary ---
Author Name Unknown Address Unknown Organization : Laboratory Report Ordering Provider Test Date Status SHARI ROUSSEAU 03/06/2024 07:34:09 Final Observation Date Value Abnormality Reference (Units ) Status Glucose Point of Care 03/06/2024 07:34:09 181 Above high normal 70-120 (mg/dL) Final Performing Location
--- OUTSIDE RECORDS SUMMARY | 2024-07-14 04:53 | External Medical Summary ---
Author Name Unknown Address Unknown Organization [facility] - [address] [place] [address] Laboratory Report Ordering Provider Test Date Status NEIL MORILLO 03/05/2024 05:18:00 Final Observation Date Value Abnormality Reference (Units ) Status Phosphate 03/05/2024 05:18:00 3.9 2.5-4.8 (m g/dL) Final Performing Location [facility] - [address] [address]
--- OUTSIDE RECORDS SUMMARY | 2024-07-14 04:53 | External Medical Summary ---
Author Name Unknown Address Unknown Organization K1[facility] - [address] [place] [address] [address] [place] [address] Laboratory Report Ordering Provider Test Date Status NEIL MORILLO 03/06/2024 05:41:00 Final Observation Date Value Abnormality Reference (Units ) Status WBC, Total 03/06/2024 05:41:00 7.55 4.00-10.80 (K/uL) Final RBC 03/06/2024 05:41:00 3.76 4.50-5.25 (M/uL) Final Hemoglobin 03/06/2024 05:41:00 9.4 Below low normal 14.0-16.8 (g/dL) Final HCT 03/06/2024 05:41:00 30.9 Below low normal 40.0-48.4 (%) Final MCV 03/06/2024 05:41:00 82.2 82.0-99.5 (fL) Final MCH 03/06/2024 05:41:00 25.0 27.0-34.0 (pg) Final MCHC 03/06/2024 05:41:00 30.4 32.0-36.0 (g/dL) Final RDW 03/06/2024 05:41:00 14.6 11.5-15.5 (%) Final Platelets 03/06/2024 05:41:00 288 140-400 (K/uL) Final MPV 03/06/2024 05:41:00 9.1 6.6-11.1 (fL) Final Nucleated erythrocytes/100 leukocytes [Ratio] in Blood by Automated count 03/06/2024 05:41:00 0 <=0 (/100 WBCs) Final Performing Location [facility] - [address] [address]
--- OUTSIDE RECORDS SUMMARY | 2024-07-14 04:53 | External Medical Summary ---
Author Name Unknown Address Unknown Organization K1[facility] - [address] [place] [address] Laboratory Report Ordering Provider Test Date Status NEIL MORILLO 03/06/2024 05:41:00 Final Observation Date Value Abnormality Reference (Units ) Status BUN 03/06/2024 05:41:00 14 6-20 (mg/dL) Final Creatinine 03/06/2024 05:41:00 0.8 0.6-1.2 (mg/dL) Final Glomerular filtration rate/1.73 sq M.predicted [Volume Rate/Area] in Serum, Plasma or Blood by Creatinine-based formula (CKD-EPI) 03/06/2024 05:41:00 >90 >=60 (mL/min) Final eGFR is calculated based on the CKD-EPI 2020 equation Sodium 03/06/2024 05:41:00 137 135-146 (m mol/L) Final Potassium 03/06/2024 05:41:00 4.1 3.5-5.1 (m mol/L) Final Cl 03/06/2024 05:41:00 99 98-107 (mm ol/L) Final CO2 03/06/2024 05:41:00 24 22-32 (mmo l/L) Final Anion gap 03/06/2024 05:41:00 14 7-15 (mmol /L) Final Glucose 03/06/2024 05:41:00 175 Above high normal 70 -120 (mg/dL) Final Calcium 03/06/2024 05:41:00 9.3 8.4-10.2 ( mg/dL) Final Performing Location [facility] - [address] [facility] [address] [place] [address]
--- OUTSIDE RECORDS SUMMARY | 2024-07-14 04:53 | External Medical Summary ---
Author Name Unknown Address Unknown Organization K1F:[facility] - [address] [address] Laboratory Report Ordering Provider Test Date Status SOHAMMADLOS 03/06/2024 05:41:00 Final Observation Date Value Abnormality Reference (Units ) Status Vancomycin, level 03/06/2024 05:41:00 13.1 10 .0-40.0 (ug/mL) Final Performing Location [facility] - [address] [address]
--- OUTSIDE RECORDS SUMMARY | 2024-07-14 04:53 | External Medical Summary ---
Author Name Unknown Address Unknown Organization : Laboratory Report Ordering Provider Test Date Status SHARI ROUSSEAU 03/06/2024 11:10:58 Final Observation Date Value Abnormality Reference (Units ) Status Glucose Point of Care 03/06/2024 11:10:58 272 Above high normal 70-120 (mg/dL) Final Performing Location
--- OUTSIDE RECORDS SUMMARY | 2024-07-14 04:53 | External Medical Summary ---
Author Name Unknown Address Unknown Organization [facility] - [address] [address] Laboratory Report Ordering Provider Test Date Status NEIL MORILLO 03/06/2024 05:41:00 Final Observation Date Value Abnormality Reference (Units ) Status Phosphate 03/06/2024 05:41:00 4.4 2.5-4.8 (m g/dL) Final Performing Location [facility] - [address] [address]
--- OUTSIDE RECORDS SUMMARY | 2024-07-14 04:53 | External Medical Summary ---
Author Name Unknown Address Unknown Organization [facility] - [address] [address] Laboratory Report Ordering Provider Test Date Status NEIL MORILLO 03/05/2024 05:18:00 Final Observation Date Value Abnormality Reference (Units ) Status Magnesium 03/05/2024 05:18:00 1.9 1.5-2.6 (m g/dL) Final Performing Location [facility] - [address] [address]
--- OUTSIDE RECORDS SUMMARY | 2024-07-14 04:53 | External Medical Summary ---
Author Name Unknown Address Unknown Organization : Laboratory Report Ordering Provider Test Date Status SHARI ROUSSEAU 03/05/2024 08:00:03 Final Observation Date Value Abnormality Reference (Units ) Status Glucose Point of Care 03/05/2024 08:00:03 168 Above high normal 70-120 (mg/dL) Final Performing Location
--- OUTSIDE RECORDS SUMMARY | 2024-07-14 04:53 | External Medical Summary ---
Author Name Unknown Address Unknown Organization : Laboratory Report Ordering Provider Test Date Status SHARI ROUSSEAU 03/05/2024 11:13:27 Final Observation Date Value Abnormality Reference (Units ) Status Glucose Point of Care 03/05/2024 11:13:27 247 Above high normal 70-120 (mg/dL) Final Performing Location
--- OUTSIDE RECORDS SUMMARY | 2024-07-14 04:53 | External Medical Summary ---
Author Name Unknown Address Unknown Organization : Laboratory Report Ordering Provider Test Date Status SHARI ROUSSEAU 03/04/2024 11:19:46 Final Observation Date Value Abnormality Reference (Units ) Status Glucose Point of Care 03/04/2024 11:19:46 154 Above high normal 70-120 (mg/dL) Final Performing Location
--- OUTSIDE RECORDS SUMMARY | 2024-07-14 04:53 | External Medical Summary ---
Author Name Unknown Address Unknown Organization : Laboratory Report Ordering Provider Test Date Status SHARI ROUSSEAU 03/04/2024 16:11:17 Final Observation Date Value Abnormality Reference (Units ) Status Glucose Point of Care 03/04/2024 16:11:17 235 Above high normal 70-120 (mg/dL) Final Performing Location
--- OUTSIDE RECORDS SUMMARY | 2024-07-14 04:53 | External Medical Summary ---
Author Name Unknown Address Unknown Organization K1F:[facility] - [address] [address] Laboratory Report Ordering Provider Test Date Status NEIL MORILLO 03/05/2024 05:18:00 Final Observation Date Value Abnormality Reference (Units ) Status BUN 03/05/2024 05:18:00 14 6-20 (mg/dL) Final Creatinine 03/05/2024 05:18:00 0.8 0.6-1.2 (mg/dL) Final Glomerular filtration rate/1.73 sq M.predicted [Volume Rate/Area] in Serum, Plasma or Blood by Creatinine-based formula (CKD-EPI) 03/05/2024 05:18:00 >90 >=60 (mL/min) Final eGFR is calculated based on the CKD-EPI 2020 equation Sodium 03/05/2024 05:18:00 134 Below low normal 135 -146 (mmol/L) Final Potassium 03/05/2024 05:18:00 4.5 3.5-5.1 (m mol/L) Final Cl 03/05/2024 05:18:00 101 98-107 (mm ol/L) Final CO2 03/05/2024 05:18:00 18 Below low normal 22- 32 (mmol/L) Final Anion gap 03/05/2024 05:18:00 15 7-15 (mmol /L) Final Glucose 03/05/2024 05:18:00 159 Above high normal 70 -120 (mg/dL) Final Calcium 03/05/2024 05:18:00 9.0 8.4-10.2 ( mg/dL) Final Performing Location [facility] - [address] [place] [address]
--- OUTSIDE RECORDS SUMMARY | 2024-07-14 04:53 | External Medical Summary ---
Author Name Unknown Address Unknown Organization : Laboratory Report Ordering Provider Test Date Status SHARI ROUSSEAU 03/05/2024 16:36:28 Final Observation Date Value Abnormality Reference (Units ) Status Glucose Point of Care 03/05/2024 16:36:28 191 Above high normal 70-120 (mg/dL) Final Performing Location
--- OUTSIDE RECORDS SUMMARY | 2024-07-14 04:53 | External Medical Summary ---
Author Name Unknown Address Unknown Organization K1F:LABORATORY [facility] - [address] [place] [address] [address] [place] [address] Laboratory Report Ordering Provider Test Date Status NEIL MORILLO 03/05/2024 05:18:00 Final Observation Date Value Abnormality Reference (Units ) Status WBC, Total 03/05/2024 05:18:00 8.09 4.00-10.80 (K/uL) Final RBC 03/05/2024 05:18:00 3.97 4.50-5.25 (M/uL) Final Hemoglobin 03/05/2024 05:18:00 10.1 Below low normal 14.0-16.8 (g/dL) Final HCT 03/05/2024 05:18:00 35.0 Below low normal 40.0-48.4 (%) Final MCV 03/05/2024 05:18:00 88.2 82.0-99.5 (fL) Final MCH 03/05/2024 05:18:00 25.4 27.0-34.0 (pg) Final MCHC 03/05/2024 05:18:00 28.9 32.0-36.0 (g/dL) Final RDW 03/05/2024 05:18:00 15.0 11.5-15.5 (%) Final Platelets 03/05/2024 05:18:00 257 140-400 (K/uL) Final MPV 03/05/2024 05:18:00 9.0 6.6-11.1 (fL) Final Nucleated erythrocytes/100 leukocytes [Ratio] in Blood by Automated count 03/05/2024 05:18:00 0 <=0 (/100 WBCs) Final Performing Location [facility] - [address] [place] [address]
--- OUTSIDE RECORDS SUMMARY | 2024-07-14 04:53 | External Medical Summary ---
Author Name Unknown Address Unknown Organization : Laboratory Report Ordering Provider Test Date Status SHARI ROUSSEAU 03/04/2024 21:51:12 Final Observation Date Value Abnormality Reference (Units ) Status Glucose Point of Care 03/04/2024 21:51:12 170 Above high normal 70-120 (mg/dL) Final Performing Location
--- OUTSIDE RECORDS SUMMARY | 2024-07-14 04:53 | External Medical Summary ---
Author Name Unknown Address Unknown Organization K1F:[facility] - [address] [place] [address] Laboratory Report Ordering Provider Test Date Status NEIL MORILLO 03/06/2024 05:41:00 Final Observation Date Value Abnormality Reference (Units ) Status Magnesium 03/06/2024 05:41:00 1.7 1.5-2.6 (m g/dL) Final Performing Location [facility] - [address] [place] [address]
--- OUTSIDE RECORDS SUMMARY | 2024-07-14 04:53 | External Medical Summary ---
Author Name Unknown Address Unknown Organization : Laboratory Report Ordering Provider Test Date Status SHARI ROUSSEAU 03/05/2024 21:35:58 Final Observation Date Value Abnormality Reference (Units ) Status Glucose Point of Care 03/05/2024 21:35:58 235 Above high normal 70-120 (mg/dL) Final Performing Location
--- OUTSIDE RECORDS SUMMARY | 2024-07-14 04:53 | External Medical Summary ---
Author Name Unknown Address Unknown Organization K1F:[facility] - [address] [place] [address] Laboratory Report Ordering Provider Test Date Status NEIL MORILLO 03/04/2024 06:44:00 Final Observation Date Value Abnormality Reference (Units ) Status Magnesium 03/04/2024 06:44:00 1.5 1.5-2.6 (m g/dL) Final Performing Location [facility] - [address] [place] [address]
--- OUTSIDE RECORDS SUMMARY | 2024-07-14 04:53 | External Medical Summary ---
Author Name Unknown Address Unknown Organization K1F:LABORATORY [facility] - [address] [address] Laboratory Report Ordering Provider Test Date Status NEIL MORILLO 03/04/2024 06:44:00 Final Observation Date Value Abnormality Reference (Units ) Status BUN 03/04/2024 06:44:00 22 Above high normal 6-20 (mg/dL) Final Creatinine 03/04/2024 06:44:00 1.0 0.6-1.2 (mg/dL) Final Glomerular filtration rate/1.73 sq M.predicted [Volume Rate/Area] in Serum, Plasma or Blood by Creatinine-based formula (CKD-EPI) 03/04/2024 06:44:00 >90 >=60 (mL/min) Final eGFR is calculated based on the CKD-EPI 2020 equation Sodium 03/04/2024 06:44:00 137 135-146 (m mol/L) Final Potassium 03/04/2024 06:44:00 4.5 3.5-5.1 (m mol/L) Final Cl 03/04/2024 06:44:00 99 98-107 (mm ol/L) Final CO2 03/04/2024 06:44:00 26 22-32 (mmo l/L) Final Anion gap 03/04/2024 06:44:00 12 7-15 (mmol /L) Final Glucose 03/04/2024 06:44:00 171 Above high normal 70 -120 (mg/dL) Final Calcium 03/04/2024 06:44:00 9.1 8.4-10.2 ( mg/dL) Final Performing Location [facility] - [address] [place] [address]
--- OUTSIDE RECORDS SUMMARY | 2024-07-14 04:53 | External Medical Summary ---
Author Name Unknown Address Unknown Organization K1F:[facility] - [address] [address] Laboratory Report Ordering Provider Test Date Status NEIL MORILLO 03/04/2024 06:44:00 Final Observation Date Value Abnormality Reference (Units ) Status Phosphate 03/04/2024 06:44:00 4.0 2.5-4.8 (m g/dL) Final Performing Location [facility] - [address] [address]
--- OUTSIDE RECORDS SUMMARY | 2024-07-14 04:53 | External Medical Summary ---
Author Name Unknown Address Unknown Organization K1F:LAB[facility]ATORY [facility] - [address] [place] [address] Laboratory Report Ordering Provider Test Date Status MARTHA GREENE 03/05/2024 05:18:00 Final Observation Date Value Abnormality Reference (Units ) Status Vancomycin, level 03/05/2024 05:18:00 10.9 10 .0-40.0 (ug/mL) Final Performing Location [facility] - [address] [place] [address]
--- OUTSIDE RECORDS SUMMARY | 2024-07-14 04:54 | External Medical Summary ---
Author Name Unknown Address Unknown Organization K1F:LABORATORY [facility] - [facility] [address] [place] [address] Laboratory Report Ordering Provider Test Date Status NEIL MORILLO 03/04/2024 06:44:00 Final Observation Date Value Abnormality Reference (Units ) Status WBC, Total 03/04/2024 06:44:00 10.70 4.00-10.80 (K/uL) Final RBC 03/04/2024 06:44:00 3.68 4.50-5.25 (M/uL) Final Hemoglobin 03/04/2024 06:44:00 9.6 Below low normal 14.0-16.8 (g/dL) Final HCT 03/04/2024 06:44:00 30.2 Below low normal 40.0-48.4 (%) Final MCV 03/04/2024 06:44:00 82.1 82.0-99.5 (fL) Final MCH 03/04/2024 06:44:00 26.1 27.0-34.0 (pg) Final MCHC 03/04/2024 06:44:00 31.8 32.0-36.0 (g/dL) Final RDW 03/04/2024 06:44:00 15.1 11.5-15.5 (%) Final Platelets 03/04/2024 06:44:00 277 140-400 (K/uL) Final MPV 03/04/2024 06:44:00 8.7 6.6-11.1 (fL) Final Nucleated erythrocytes/100 leukocytes [Ratio] in Blood by Automated count 03/04/2024 06:44:00 0 <=0 (/100 WBCs) Final Performing Location LABORATORY [facility] - [address] [address]
--- OUTSIDE RECORDS SUMMARY | 2024-07-14 04:54 | External Medical Summary ---
Author Name Unknown Address Unknown Organization : Laboratory Report Ordering Provider Test Date Status KEYUR ARGUETA 02/22/2024 07:10:23 Final Observation Date Value Abnormality Reference (Units ) Status Glucose Point of Care 02/22/2024 07:10:23 174 Above high normal 70-120 (mg/dL) Final Performing Location
--- OUTSIDE RECORDS SUMMARY | 2024-07-14 04:54 | External Medical Summary | Summary of Care ---
Author Name Unknown Organization [facility] Address [address] [facility] [place] [address] Phone [phone] Care Team Providers Care Underwriting Manager Name Role Phone Velasquez Valencia MD Primary Care Provider [phone] Reason for Visit * Reason Onset Date Comments Advice 03/03/2024 Appointment 03/03/2024 Encounter Details Date Type Department Care Team (Late st Contact Info) Description 03/03/2024 Telephone [facility] [address] [place] [address] Velasquez Valencia MD [address] [place] [address] Advice; Appointment Allergies Active Allergy Reactions Criticality Noted Date Comments Cefaclor Unknown 07/26/2018 As child Empagliflozin Other (Please comment) 05/16/2021 DKA with hospitalization Nsaids High 04/19/2019 Gastric problems Other Reaction(s): gastroparesis, kidney problems, use with caution : hx esophagus damage documented as of this encounter (statuses as of 03/03/2024) Medications Medication Sig Dispensed Refills Start Date [...] 1 Capsule before bedtime. 30 Capsule 0 11/05/2023 Active Polyethylene Glycol 3350 17 GM Oral Packet (Miralax) Mix 1 Packet in 4 to 8 ounces of any beverage and drink by mouth in the morning. 14 Each 0 11/06/2023 Active Torsemide 10 MG Oral Tablet (Demadex) Take 1 Tablet by mouth in the morning. 30 Tablet 0 11/06/2023 Active Ondansetron HCl 4 MG Oral Tablet Take 1 Tablet by mouth every 8 hours as needed for Nausea. 20 Tablet 0 11/05/2023 Active Sennosides-Docusate Sodium 8.6-50 MG Oral Tablet (Senokot-S) Take 1 Tablet by mouth in the morning. 30 Tablet 0 11/06/2023 Active Spironolactone 25 MG Oral Tablet (Aldactone) Take 1 Tablet by mouth in the morning. 90 Tablet 3 11/08/2023 Active Aspirin 81 MG Oral Tablet Delayed Release Take 1 Tablet by mouth in the morning. 90 Tablet 3 11/08/2023 Active Fluticasone-Salmete rol 115-21 MCG/ACT Inhalation Aerosol (Advair HFA) Inhale 2 Puffs by mouth in the morning and 2 Puffs before bedtime. 12 g 12 11/17/2023 Active Metoprolol Succinate ER 100 MG Oral [...] mouth in the morning 30 Tablet 0 02/22/2024 Active Cyclobenzaprine HCl 10 MG Oral Tablet (Flexeril)Indicatio ns:Lumbar disc herniation TAKE 1 TABLET BY MOUTH AT BEDTIME ONLY NEEDED 30 Tablet 0 02/21/2024 Active traMADol HCl 50 MG Oral Tablet (Ultram)Indications :Abdominal pain, epigastric Take 1 Tablet by mouth every 6 hours as needed for Pain, Severe. 40 Tablet 0 02/22/2024 Active documented as of this encounter (statuses as of 03/03/2024) Active Problems Problem Noted Date Diagnosed Date History of diabetic ulcer of foot 12/12/2023 [...] as of this encounter (statuses as of 03/03/2024) Resolved Problems Problem Noted Date Diagnosed Date [...] as of this encounter (statuses as of 03/03/2024) Immunizations Name Administration Dates Next Due COVID-19 mRNA, LNP-s, No Pre serve, 2-Dose Series (Pfizer) 10/21/2021,03/01/2021,02/07/2021 H1N1 2009 Influenza, IM 11/04/2009 Pneumococcal Conjugate Vacci ne, 20-valent (Ofeteog07) 07/09/2023 Pneumococcal Polysaccharide PPV23 (Pneumovax) 11/03/2015,02/09/2006 Seasonal [...] Telephone Encounter - Nely Randhawa OSA - 03/03/2024 11:[address] Valencia, we are to get hospital notes and he will look at notes, ask patient if his title one teacher is aware. After review of notes, Dr. Valencia can then see if we can fit patient in or sendhim to the hospital. Spoke to Radha, she requested notes from [facility]. Called patient made him aware of info above. He stated that Dr. Camacho, his title one teacher, is aware of the situation and he didn't seem too concerned aboutit. Let Radha know info. She talked to Dr. Ornelas he states that if he is truly bleeding through bandages then he can go to the hospital as they can take xrays if needed and they will have a surgeon there that can take care of him if need be. Called patient relayed info again from Dr. Ornelas and let him know we have not received notes from [facility] yet. He states he will go to the hospital but he will go to [facility]. 03/03/2024 * Telephone Encounter - Ana Sams OSA - 03/03/2024 8:56 AM EDT No Appointments Available Patient declined appointments?: No What Visit Type is needed? Acute If Acute Visit Type is needed, were surrounding clinics offered to patient (Yes/No)? No, explain only wants Dr Valencia Was patient offered appointments with other available providers (Yes/No)? No, explain only wants [facility] See Call Details? (Yes or No): Yes documented in this encounter Plan of Treatment Upcoming Encounters Date Type Department Care Team (Late st Contact Info) Description 05/08/2024 11:40 AM EDT Office Visit [facility] [address] [place] [facility] [place] [id number] Velasquez Valencia MD [address] [place] [address] Scheduled Procedures Name Priority Associated Diagnoses [...] 02/07/2021 DISCUSS TOBACCO CESSATION (REFER TO SMARTSET #3296) 10/16/2023 10/16/2022 Zoster Vaccines (1 of 2) 2023 Diabetic Foot Exam 07/09/2024 07/09/2023, 0 03/07/2021, 11/27/2019, Additional history exists HbA1c 07/16/2024 01/14/2024, 11/19, 10/27/2023, Additional history exists Diabetic Eye Exam 07/28/2024 07/28/2023, , 07/22/2023, Additional history exists Albumin/Creatinine Ratio 01/13/2025 024, 01/05/2023, 09/01/2021, Additional history exists Depression Screening 01/13/2025 01/14/2024 GFR 02/06/2025 02/07/2024, 03/0 03/2024, 12/14/2023, Additional history exists O2 ASSESSMENT COMPLETED IN PAST YEAR FOR COPD 02/21/2025 02/22/2024 DTaP,Tdap,and Td Vaccines (2 - Td or [...] this encounter Medical Devices Implanted Type Area Card Cleaner Device Identifier Shelf Expiration Date Model / Serial / Lot Suture Hathorne Dbl Load 4.75mm - [id number] Implanted:Qty: 1 on 12/01/2019 by Judith Condon DO at [facility] Right: Shoulder [employer] 07/17/2021 [id number]-[id number] -2 / / [id number] Suture Hathorne Dbl Load 5.5mm - [id number] Implanted:Qty: 1 on 12/01/2019 by Judith Condon DO at OR [facility] Right: Shoulder [employer] 09/16/2021 [id number] -2 / / [id number] documented as of this encounter Advance Directives Latest Code Status on File Code Status Date Activated Date Inactivated Comments Full Code 12/12/2023 7:55 PM 12/14/2023 4:03 PM This order reflects the patients wishes and were consensually agreed upon. Question Answer Comments Discussion of Advance Directives occurred with: Patient Code Status History Code Status Date Activated Date Inactivated Comments Full Code 10/27/2023 5:27 PM 11/05/2023 5:40 PM This order reflects the patients wishes and were consensually agreed upon. Question Answer Comments Discussion of Advance Directives occurred with: Patient Full Code 11/30/2021 9:36 PM 12/01/2021 9:03 PM This order reflects the patients wishes and were consensually agreed upon. Question Answer Comments Discussion of Advance Directives occurred with: Not Discussed Full Code 03/02/2021 10:51 PM 03/04/2021 9:45 PM This order reflects the patients wishes and were consensually agreed upon. Question Answer Comments Discussion of Advance Directives occurred with: Patient Does the patient have a Living Will? No Does the patient have Health Care Power of Chinese Instructor? No Care Teams Underwriting Manager Relationship Specialty Start Date End Date Velasquez Valencia MD [address] [place] [address] PCP - General Family Medicine 09/09/22 documented as of this encounter
--- OUTSIDE RECORDS SUMMARY | 2024-07-14 04:54 | External Medical Summary ---
Author Name Unknown Address Unknown Organization K1F:LABORATORY [facility] - [address] [place] [address] Laboratory Report Ordering Provider Test Date Status LINJAMILNATHANIELOSIEL 03/03/2024 15:24:17 Final Less than 0.5 ng/mL: Low ris k for progression to sepsis. Review patients condition for localized infections.

0.5 to 2.0 ng/mL: Intermediate risk for progresion to sepsis. Review underlying conditions. Recommend repeat PCT after 6 hours has elapsed.

Greater than 2.0 ng/mL: high risk for progression to sepsis unless other causes are known. Observation Date Value Abnormality Reference (Units ) Status Procalcitonin [Mass/volume] in Serum or Plasma by Immunoassay 03/03/2024 15:24:17 0.08 <0.10 (ng/mL) Final Performing Location LABORATORY [facility] - [address] [place] [address]
--- OUTSIDE RECORDS SUMMARY | 2024-07-14 04:54 | External Medical Summary ---
Author Name Unknown Address Unknown Organization K1F:LABORATORY [facility] - [address] [place] [address] [address] [place] [address] Laboratory Report Ordering Provider Test Date Status SINTIA CEBALLOS 03/03/2024 15:24:17 Final Observation Date Value Abnormality Reference (Units ) Status WBC, Total 03/03/2024 15:24:17 10.46 4.00-10.80 (K/uL) Final RBC 03/03/2024 15:24:17 4.30 4.50-5.25 (M/uL) Final Hemoglobin 03/03/2024 15:24:17 11.1 Below low normal 14.0-16.8 (g/dL) Final HCT 03/03/2024 15:24:17 35.3 Below low normal 40.0-48.4 (%) Final MCV 03/03/2024 15:24:17 82.1 82.0-99.5 (fL) Final MCH 03/03/2024 15:24:17 25.8 27.0-34.0 (pg) Final MCHC 03/03/2024 15:24:17 31.4 32.0-36.0 (g/dL) Final RDW 03/03/2024 15:24:17 15.0 11.5-15.5 (%) Final Platelets 03/03/2024 15:24:17 349 140-400 (K/uL) Final MPV 03/03/2024 15:24:17 8.6 6.6-11.1 (fL) Final Nucleated erythrocytes/100 leukocytes [Ratio] in Blood by Automated count 03/03/2024 15:24:17 0 <=0 (/100 WBCs) Final Performing Location LABORATORY [facility] - [address] [place] [address]
--- OUTSIDE RECORDS SUMMARY | 2024-07-14 04:54 | External Medical Summary | Summary of Care ---
Author Name Unknown Organization [facility] Address [address] [place] [address] Phone [phone] Care Team Providers Care Mash Filter Operator Name Role Phone Velasquez Valencia MD Primary Care Provider [phone]- [phone] Reason for Visit * Reason Onset Date Comments Outpatient Testing 12/13/2023 Encounter Details Date Type Department Care Team (Late st Contact Info) Description 12/13/2023 Telephone Gastroenterology, [address] [address] Devora Gonzalez PA-C [facility] [place] [address] Outpatient Testing (/) Allergies Active Allergy Reactions Criticality Noted Date Comments Cefaclor Unknown 07/26/2018 As child Empagliflozin Other (Please comment) 05/16/2021 DKA with hospitalization Nsaids High 04/19/2019 Gastric problems Other Reaction(s): gastroparesis, kidney problems, use with caution : hx esophagus damage documented as of this encounter (statuses as of 03/02/2024) Medications Medication Sig Dispensed Refills Start Date [...] bedtime 270 Capsule 1 08/03/20 23 Active Metoclopramide HCl 10 MG Oral [...] 1 Capsule before bedtime. 30 Capsule 0 11/05/19 24 Active Polyethylene Glycol 3350 17 GM Oral Packet (Miralax) Mix 1 Packet in 4 to 8 ounces of any beverage and drink by mouth in the morning. 14 Each 0 11/06/19 24 Active Torsemide 10 MG Oral Tablet (Demadex) Take 1 Tablet by mouth in the morning. 30 Tablet 0 11/06/19 24 Active Ondansetron HCl 4 MG Oral Tablet Take 1 Tablet by mouth every 8 hours as needed for Nausea. 20 Tablet 0 11/05/19 24 Active Sennosides-Docus ate Sodium 8.6-50 MG Oral Tablet (Senokot-S) Take 1 Tablet by mouth in the morning. 30 Tablet 0 11/06/19 24 Active Spironolactone 25 MG Oral Tablet (Aldactone) Take 1 Tablet by mouth in the morning. 90 Tablet 3 11/08/19 24 Active Aspirin 81 MG Oral Tablet Delayed Release Take 1 Tablet by mouth in the morning. 90 Tablet 3 11/08/19 24 Active Fluticasone-Salm eterol 115-21 MCG/ACT Inhalation Aerosol (Advair HFA) Inhale 2 Puffs by mouth in the morning and 2 Puffs before bedtime. 12 g 12 11/17/19 24 Active Diclofenac Sodium (VOLTAREN) 1 % gel Place 2 g topically on the skin 2 times a day. To affected area as directed. 100 g 5 01/12/20 20 024 Discontinued docusate sodium (RA COL-RITE) 100 MG Capsule Take 1 Cap by mouth 2 times a day as needed for Constipation. 60 Cap 3 05/07/20 20 024 Discontinued CPAP every night at bedtime. 0 024 Discontinued Pantoprazole Sodium 40 MG Oral Tablet Delayed Release (Protonix) take 1 tablet by mouth twice a day 180 Tablet 1 01/08/20 23 024 Discontinued oxygen IN GAS Use 2 L/min(Oxygen) as directed at bedtime. 0 024 Discontinued Insulin Aspart FlexPen 100 UNIT/ML Subcutaneous Solution Pen-injectorIndi cations:Type 2 diabetes mellitus with hemoglobin A1c goal of less than 7.0% ([facility]) inject 16 units subcutaneously three times a [...] than 7.0% ([facility]) Inject 15 mg under the skin once a week. Dose increase 6 mL 4 09/15/20 23 024 Discontinued oxyCODONE HCl 10 MG Oral Tablet (Roxicodone) Take 1 Tablet by mouth every 8 hours as needed for Pain, Moderate or Pain, Severe. 0 024 Discontinued Naloxegol Oxalate 25 MG Oral Tablet (Movantik) Take 1 Tablet by mouth in the morning. 30 Tablet 0 11/08/19 24 024 Discontinued Metoprolol Succinate ER 100 MG Oral Tablet Extended Release 24 Hour (toPROL XL) Take 1 tab by mouth in the morning and a half tab in evening 135 Tablet 3 11/08/19 24 024 Discontinued(Re fill) Insulin Glargine Solostar 100 UNIT/ML Subcutaneous Solution Pen-injectorIndi cations:Type 2 diabetes mellitus with hemoglobin A1c goal of less than 7.0% (HCC) Inject 40 units in the morning and 40 units in the evening 0 11/29/19 24 024 Discontinued documented as of this encounter (statuses as of 03/02/2024) Active Problems Problem Noted Date Diagnosed Date [...] as of this encounter (statuses as of 03/02/2024) Resolved Problems Problem Noted Date Diagnosed Date [...] as of this encounter (statuses as of 03/02/2024) Immunizations Name Administration Dates Next Due COVID-19 mRNA, LNP-s, No Pre serve, 2-Dose Series (behaview) 10/21/2021,03/01/2021,02/07/2021 H1N1 2009 Influenza, IM 11/04/2009 Pneumococcal Conjugate Vacci ne, 20-valent ([id number]) 07/09/2023 Pneumococcal Polysaccharide PPV23 (Pneumovax) 11/03/2015,02/09/2006 Seasonal [...] 12/13/2023 12:54 PM EST Pt admitted to [facility] for pancreatitis. Please arrange OP EUS in 6-8 weeks. Thanks Devora Gonzalez PA-C 12/13/2023 Department of Gastroenterology documented in this encounter Plan of Treatment Upcoming Encounters Date Type Department Care Team (Late st Contact Info) Description 03/03/2024 9:40 AM EDT [facility] [place] [address] [facility] [place] [address] [facility] [address] [facility] [place] [address] 05/08/2024 11:40 AM EDT Office Visit [facility], [place] [address] [place] [facility] [place] [phone] Velasquez Valencia [facility] [address] [facility] [place] [address] Scheduled Orders Name Type Priority Associated Diagnoses [...] 02/07/2021 DISCUSS TOBACCO CESSATION (REFER TO SMARTSET #0567) 10/16/2023 10/16/2022 Zoster Vaccines (1 of 2) [...] this encounter Medical Devices Implanted Type Area Product Marketing Programs Manager Device Identifier Shelf Expiration Date Model / Serial / Lot Suture [place] Dbl Load 4.75mm - [id number] Implanted:Qty: 1 on 12/01/2019 by Judith Condon DO at OR [facility] Right: Shoulder [employer] 07/17/2021 AR-2324BCT -2 / / [id number] Suture [place] Dbl Load 5.5mm - [id number] Implanted:Qty: 1 on 12/01/2019 by Judith Condon DO at OR [facility] Right: Shoulder [employer] 09/16/2021 AR-2323BCT -2 / / [id number] documented as of this encounter Visit Diagnoses [...] the patient have Health Care Power of Concrete Products Dispatcher? No Care Teams Mash Filter Operator Relationship Specialty Start Date End Date Velaqsuez Valencia MD [address] [place] [id number] PCP - General Family Medicine 09/09/22 documented as of this encounter
--- OUTSIDE RECORDS SUMMARY | 2024-07-14 04:54 | External Medical Summary ---
Author Name Unknown Address Unknown Organization [facility] [address] [place] [address] Laboratory Report Ordering Provider Test Date Status SINTIA CEBALLOS 03/03/2024 18:04:04 Final Observation Date Value Abnormality Reference (Units ) Status Bacteria identified in Specimen by Culture 03/03/2024 18:04:04 No growth Final Test: Culture, Blood (Site 2)
Specimen Source: Blood, Venous
Specimen Type: Blood
Specimen Date: 03/03/20241803
Result Date: 03/08/2024 190
Result Status: Final result
Resulting Lab: [facility]
[address] [place] [address]
[place] [address]

CULTURE

No growth

null Performing Location [facility] - [address] [place] [address] Ave. [place] [address]
--- OUTSIDE RECORDS SUMMARY | 2024-07-14 04:54 | External Medical Summary ---
Author Name Unknown Address Unknown Organization [facility] - [address] [place] [address] Laboratory Report Ordering Provider Test Date Status NEIL MORILLO 03/03/2024 18:04:10 Final Observation Date Value Abnormality Reference (Units ) Status Lactic Acid 03/03/2024 18:04:10 1.4 0.4-2.0 (mmol/L) Final Performing Location [facility] - [address] [place] [address]
--- OUTSIDE RECORDS SUMMARY | 2024-07-14 04:54 | External Medical Summary | Summary of Care ---
Author Name Unknown Organization [facility] [address] [facility] [address] Phone [phone] Care Team Providers Care Dog Daycare Provider Name Role Phone Velasquez Polo MD Primary Care Provider +1- [phone] Reason for Visit * Reason Onset Date Comments Medication Refill 02/21/2024 Encounter Details Date Type Department Care Team (Late st Contact Info) Description 02/21/2024 Refill [facility] [address] [place] [address] Velasquez Polo MD [address] [place] [address] Lumbar disc herniation Allergies Active Allergy Reactions Criticality Noted Date Comments Cefaclor Unknown 07/26/2018 As child Empagliflozin Other (Please comment) 05/16/2021 DKA with hospitalization Nsaids High 04/19/2019 Gastric problems Other Reaction(s): gastroparesis, kidney problems, use with caution : hx esophagus damage documented as of this encounter (statuses as of 02/21/2024) Medications Medication Sig Dispensed Refills Start Date [...] ([facility]) Take 2 Tablets by mouth in [...] for Nausea. 20 Tablet 0 11/05/2023 Active Sennosides-Docusat e Sodium 8.6-50 MG Oral Tablet (Senokot-S) Take 1 Tablet by mouth in the morning. 30 Tablet 0 11/06/2023 Active Spironolactone 25 MG Oral Tablet (Aldactone) Take 1 Tablet by mouth in the morning. 90 Tablet 3 11/08/2023 Active Aspirin 81 MG Oral Tablet Delayed Release Take 1 Tablet by mouth in the morning. 90 Tablet 3 11/08/2023 Active Fluticasone-Salmet meeta 115-21 MCG/ACT Inhalation Aerosol (Advair HFA) Inhale 2 Puffs by mouth in the morning and 2 Puffs before bedtime. 12 g 12 11/17/2023 Active Movantik 25 MG Oral Tablet (Naloxegol Oxalate) take 1 tablet by mouth in the morning 30 Tablet 1 12/27/2023 Active Metoprolol Succinate ER 100 MG Oral [...] times daily 500 Each 3 01/19/2024 Active traMADol HCl 50 MG Oral Tablet (Ultram)Indication s:Abdominal pain, epigastric Take 1 Tablet by mouth every 6 hours as needed for Pain, Severe. 40 Tablet 0 02/10/2024 Active Insulin Aspart FlexPen 100 UNIT/ML Subcutaneous [...] mg tablets. 90 Tablet 4 02/16/2024 Active Cyclobenzaprine HCl 10 MG Oral Tablet (Flexeril)Indicati ons:Lumbar disc herniation TAKE 1 TABLET BY MOUTH AT BEDTIME ONLY NEEDED 30 Tablet 0 02/21/2024 Active Cyclobenzaprine HCl 10 MG Oral Tablet (Flexeril)Indicati ons:Lumbar disc herniation TAKE 1 TABLET BY MOUTH AT BEDTIME ONLY NEEDED 30 Tablet 0 01/25/2024 Discontinue d(Refill) documented as of this encounter (statuses as of 02/21/2024) Active Problems Problem Noted Date Diagnosed Date [...] as of this encounter (statuses as of 02/21/2024) Resolved Problems Problem Noted Date Diagnosed Date [...] as of this encounter (statuses as of 02/21/2024) Immunizations Name Administration Dates Next Due COVID-19 mRNA, LNP-s, No Pre serve, 2-Dose Series (ISVWorld) 10/21/2021,03/01/2021,02/07/2021 H1N1 2009 Influenza, IM 11/04/2009 Pneumococcal Conjugate Vacci ne, 20-valent ([id number]) 07/09/2023 Pneumococcal Polysaccharide PPV23 (Pneumovax) 11/03/2015,02/09/2006 Seasonal [...] Miscellaneous Notes * Telephone Encounter - Velasquez Polo MD - 02/21/2024 3:51 PM EDTSigned Prescriptions: Disp Refills Cyclobenzaprine HCl 10 MG Oral Tablet (Fle*30 Tab*0 Sig: TAKE 1TABLET BY MOUTH AT BEDTIME ONLY NEEDEDAuthorizing Provider: VELASQUEZ POLO * Telephone Encounter - Margarita Taylor CPhT - 02/21/2024 9:57 AM EDT Did you pend patient's preferred pharmacy and medication before forwarding?yes Pharmacy: [id number] [address] [facility] Pending Prescriptions: Disp Refills Cyclobenzaprine HCl 10 MG Oral Tablet (Fl*30 Tab*0 Sig: TAKE 1 TABLET BY MOUTH AT BEDTIME ONLY NEEDED Last Visit: 02/10/2024 (in office), Visit date not found (telemedicine) Next Visit: 05/08/2024 If no future appointments scheduled, and last appointment is greater than a year ago, please schedule patient for a follow-up appointment Last date the medication was ordered: 01/25/24 Is this request for a controlled substance?No Urine Drug Screen:No results found. However, due to the size of the patient record, not all encounters were searched. Please check Results Review for a complete set of results. Patient Phone Numbers Labs: Lab Results Component Value Date/Time CREAT 0.98 02/07/2024 12:00 AM CREAT 0.8 11/25/2019 08:53 AM POTASSIUM 4.7 02/07/2024 12:00 AM POTASSIUM 4.5 11/25/2019 08:53 AM TSH 1.24 12/05/2021 12:12 PM TSH 0.698 06/30/2018 12:00 AM LDLCALC 48 12/13/2023 04:39 AM LDLCALC 108 01/08/2011 02:50 PM LDLDIRECT 133 (H) 04/12/2007 03:04 PM ALT 23 12/22/2023 11:48 AM ALT 37 11/25/2019 08:53 AM HGBA1C 10.2 (H) 01/14/2024 10:59 AM HGBA1C 9.2 (H) 09/16/2020 01:55 PM documented in this encounter Plan of Treatment Upcoming Encounters Date Type Department Care Team (Latest Contact Info) Description 02/22/2024 7:59 AM EDT Hospital Encounter [facility], Operating Room, [facility] - 4th Floor [address] [place] [address] Marcela Del Valle MD [address] [place] [address] 02/22/2024 7:59 AM EDT - 02/22/2024 8:49 AM EDT Surgery OR [facility], Operating Room, [facility] - 4th Floor [address] [place] [address] Marcela Del Valle MD [address] [place] [address] COLONOSCOPY FLEXIBLE PROXIMAL DIAGNOSTIC 03/03/2024 9:40 AM EDT [facility] [place] [address] [facility] [address] [facility] [address] [facility] [address] 05/08/2024 11:40 AM EDT Office Visit [facility] [address] [place] [address] Velasquez Polo MD [address], [place] [id number] Scheduled Procedures Name Priority Associated Diagnoses Date/Ti me COLONOSCOPY FLEXIBLE PROXIMA L DIAGNOSTIC Screening for colon cancer Abdominal pain 02/22/2024 7:59 AM EDT ESOPHAGOGASTRODUODENOSCOPY ( EGD), FLEXIBLE, TRANSORAL, DIAGNOSTIC Screening for colon cancer Abdominal pain 02/22/2024 7:59 AM EDT Health Maintenance Due Date Last Done Comments HIV Screening 1988 Alpha-1 Antitrypsin 1991 Hepatitis C Screening 1991 Hepatitis B (1 of 3 - 19+ 3-dose series) 1992 Cologuard 2018 Fecal Occult Blood Test 2018 Sigmoidoscopy 2018 COVID-19 Vaccine ( season) 2023 10/21/2021, 03/01/2021, 02/07/2021 DISCUSS TOBACCO CESSATION (REFER TO SMARTSET #8441) 10/16/2023 10/16/2022 Zoster Vaccines (1 of 2) [...] ASSESSMENT COMPLETED IN PAST YEAR FOR COPD 02/09/2025 02/10/2024 Colonoscopy 04/15/2028 04/15/2023, 04/18/2015 Colorectal Cancer Screening 04/15/2028 DTaP,Tdap,and Td Vaccines (2 - Td or Tdap) 05/01/2028 05/01/2018 Lipid Panel 12/13/2028 12/13/2023, 12/17, 09/01/2021, Additional history exists RETIRED - COLONOSCOPY-EVERY 5 YRS AGES 18-100 Discontinued 04/15/2023, 04/18/2015 Influenza Vaccine (FLU shot) Completed 07/09/2023, 10/16/2022, 07/31/2021, Additional history exists Pneumococcal Vaccine: Pediatrics (0 to 5 Years) and At-Risk Patients (6 to 64 Years) Completed 07/09/2023, 11/03/2015, 02/09/2006 Lung Cancer Screening Completed 02/09/2024 , 09/19/2023, 12/15/2022, Additional history exists GARDASIL-HPV IMMUNIZATION SERIES Aged Out No longer eligible based on patient's age to complete this topic MENINGOCOCCAL (MENACTRA/MENVEO) Aged Out No longer eligible based on patient's age to complete this topic documented as of this encounter Medical Devices Implanted Type Area Cage Tender Device Identifier Shelf Expiration Date Model / Serial / Lot Suture [place] Dbl Load 4.75mm - [id number] Implanted:Qty: 1 on 12/01/2019 by Judith Condon DO at OR [facility] Right: Shoulder [employer] 07/17/2021 AR-2324BCT -2 / / [id number] Suture [place] Dbl Load 5.5mm - [id number] Implanted:Qty: 1 on 12/01/2019 by Judith Condon DO at OR [facility] Right: Shoulder [employer] 09/16/2021 AR-2323BCT -2 / / [id number] documented as of this encounter Visit Diagnoses Diagnosis Lumbar disc herniation Displacement of lumbar intervertebral disc without myelopathy Screening for colon cancer Special screening for malignant neoplasms, colon Abdominal pain Abdominal pain, unspecified site documented in this encounter Advance Directives Latest [...] the patient have Health Care Power of Administrative Hearing Officer? No Care Teams Dog Daycare Provider Relationship Specialty Start Date End Date Velasquez Polo MD [address] [place] [address] PCP - General Family Medicine 09/09/22 documented as of this encounter
--- OUTSIDE RECORDS SUMMARY | 2024-07-14 04:54 | External Medical Summary ---
Author Name Unknown Address Unknown Organization [facility] - [address] [place] [address] Laboratory Report Ordering Provider Test Date Status SINTIA CEBALLOS 03/03/2024 15:24:17 Final Observation Date Value Abnormality Reference (Units ) Status CRP, low-sensitivity 03/03/2024 15:24:17 47 Above high normal <=5 (mg/L) Final Performing Location [facility] - [address] [place] [address]
--- OUTSIDE RECORDS SUMMARY | 2024-07-14 04:54 | External Medical Summary | Summary of Care ---
Author Name Unknown Organization [facility] Address [address] [place] [address] Phone [phone] Care Team Providers Care Director Cardiovascular Name Role Phone Velasquez Valencia MD Primary Care Provider [phone] Reason for Visit * Auth/Cert Specialty Diagnoses / Procedures Referred By Bismark brown Referred To Contact Diagnoses Screening for colon cancer Abdominal pain Screening for colon cancer [Z12.11] Abdominal pain [R10.9] Procedures COLONOSCOPY, DIAGNOSTIC (RECTUM) EGD, FLEXIBLE, DIAGNOSTIC COLONOSCOPY FLEXIBLE PROXIMAL DIAGNOSTIC ESOPHAGOGASTRODUODENOSCOPY (EGD), FLEXIBLE, TRANSORAL, DIAGNOSTIC Marcela Del Valle MD [address] [place] [id number] [address] [facility] [address] [place] [address] Referral ID Status Reason Start Date Expiration Date Visits Re quested Visits Authorized [id number] Encounter Details Date Type Department Care Team (Latest Contact Info) Description 02/22/2024 6:33 AM EDT - 02/22/2024 9:53 AM EDT Hospital Encounter OR GL, Operating Room, Main Hospital - 4th Floor [address] [place] [id number] Marcela Del Valle MD [address] [place] [place] [id number] Various: GICOLON,UGI Discharge Disposition: Home - Self Care Allergies Active Allergy Reactions Criticality Noted Date Comments Cefaclor Unknown 07/26/2018 As child Empagliflozin Other (Please comment) 05/16/2021 DKA with hospitalization Nsaids High 04/19/2019 Gastric problems Other Reaction(s): gastroparesis, kidney problems, use with caution : hx esophagus damage documented as of this encounter (statuses as of 02/22/2024) Medications Medication Sig Dispensed Refills Start Date [...] bedtime. 12 g 12 11/17/19 24 Active Metoprolol Succinate ER 100 MG [...] than 7.0% ([facility]) Inject 40 units twice daily- this replaces lantus 54 mL 4 01/19/20 24 Active Insulin Aspart FlexPen 100 UNIT/ML Subcutaneous Solution Pen-injectorIndi cations:Type 2 diabetes mellitus with hemoglobin A1c goal of less than 7.0% (HCC) Inject 32 units with breakfast 22 units with lunch and 22 units with supper plus CF of 1:12 over 150. Max daily dose of 115 units 120 mL 4 02/16/20 24 Active Pioglitazone HCl 45 MG Oral Tablet (Actos)Indicatio ns:Type 2 diabetes mellitus with hemoglobin A1c goal of less than 7.0% (HCC) Take 1 Tablet by mouth in the morning. Please fill in about a month- patient is going to be using up his current supply of 15 mg and 30 mg tablets. 90 Tablet 4 02/16/20 24 Active Cyclobenzaprine HCl 10 MG Oral Tablet (Flexeril)Indica tions:Lumbar disc herniation TAKE 1 TABLET BY MOUTH AT BEDTIME ONLY NEEDED 30 Tablet 0 02/21/20 24 Active Movantik 25 MG Oral Tablet (Naloxegol Oxalate) take 1 tablet by mouth in the morning 30 Tablet 1 12/27/19 24 024 Discontinued Insulin Aspart FlexPen 100 UNIT/ML Subcutaneous Solution Pen-injectorIndi cations:Type 2 diabetes mellitus with hemoglobin A1c goal of less than 7.0% (HCC) inject 22 units subcutaneously three times a day with meals 75 mL 4 01/19/20 24 024 Discontinued(Re fill) Cyclobenzaprine HCl 10 MG Oral Tablet (Flexeril)Indica tions:Lumbar disc herniation TAKE 1 TABLET BY MOUTH AT BEDTIME ONLY NEEDED 30 Tablet 0 01/25/20 24 024 Discontinued(Re fill) Pioglitazone HCl 30 MG Oral Tablet (Actos)Indicatio ns:Type 2 diabetes mellitus with hemoglobin A1c goal of less than 7.0% (HCC) Take 1 Tablet by mouth in the morning. Dose increase. 90 Tablet 0 02/07/20 24 024 Discontinued traMADol HCl 50 MG Oral Tablet (Ultram)Indicati ons:Abdominal pain, epigastric Take 1 Tablet by mouth every 6 hours as needed for Pain, Severe. 40 Tablet 0 02/10/20 24 024 Discontinued(Re fill) documented as of this encounter (statuses as of 02/22/2024) Active Problems Problem Noted Date Diagnosed Date [...] as of this encounter (statuses as of 02/22/2024) Resolved Problems Problem Noted Date Diagnosed Date [...] as of this encounter (statuses as of 02/22/2024) Immunizations Name Administration Dates Next Due COVID-19 mRNA, LNP-s, No Pre serve, 2-Dose Series (NASOFORM) 10/21/2021,03/01/2021,02/07/2021 H1N1 2009 Influenza, IM 11/04/2009 Pneumococcal Conjugate Vacci ne, 20-valent (Erguipp84) 07/09/2023 Pneumococcal Polysaccharide PPV23 (Pneumovax) 11/03/2015,02/09/2006 Seasonal [...] Frequency of Binge Drinking Not on file 080 04/2019 PHQ-2 Answer Date Recorded PHQ Adult Total Score 0 01/14/2024 Hunger Vital Sign Answer Date Recorded Within the past 12 months, y ou worried that your food would run out before you got the money to buy more. Never true 01/14/20 Within the past 12 months, t he [...] Sign Reading Time Taken Comments Blood Pressure 131/63 02/22/2024 9:19 AM EDT Pulse 108 02/22/2024 9:19 AM EDT Temperature 36.7 C (98.1 F) 02/22/2024 9:19 AM ED T Respiratory Rate 14 02/22/2024 9:19 AM EDT Oxygen Saturation 94% 02/22/2024 9:19 AM EDT Inhaled Oxygen Concentration - - Weight 135.6 kg (299 lb) 02/22/2024 6:55 AM EDT Height 185.4 cm (6' 1") 02/22/2024 6:55 AM EDT Body Mass Index 39.45 02/22/2024 6:55 AM EDT documented in this encounter Functional [...] as of this encounter Progress Notes * Marcela Del Valle MD - 02/22/2024 9:00 AM EDT BRIEF DISCHARGE SUMMARY [address] [address] Name: Bry Akhtar Jr. Location: [facility] Date: 02/22/2024 Time: 9:00 AM Seen in recovery Ok to dc home Resume meds/diet later today documented in this encounter H&P Notes * Marcela Del Valle MD - 02/22/2024 8:11 AM EDT Endoscopy Pre-Procedure Assessment Name: Bry Akhtar Jr. Date: 02/22/2024 Time: 8:11 AM Procedure(s): Colonoscopy; with Indication(s) of average risk screening - poor prep six months ago Upper GI Endoscopy; with Indication(s) of abdominal pain Endoscopy Pre-Procedure Assessment: Prior to the procedure, the patient is identified. The patient's history, medications and allergieshave been reviewed. The patient is competent. The risks and benefits of the proposed procedure and the planned sedation have been discussed with the patient. All questions have been answered and informed consent for the procedure has been obtained. Prior to Admission medications Medication Sig Last Dose Discont. Cyclobenzaprine HCl 10 MG Oral Tablet (Flexeril) TAKE 1 TABLET BY MOUTH AT BEDTIME ONLY NEEDED 02/21/2024 Insulin Aspart FlexPen 100 UNIT/ML Subcutaneous Solution Pen-injector Inject 32 units with breakfast 22 units with lunch and 22 units with supper plus CF of 1:12 over 150. Max daily dose of 115 units02/21/2024 Pioglitazone HCl 45 MG Oral Tablet (Actos) Take 1 Tablet by mouth in the morning. Please fill in about a month- patient is going to be using up his current supply of 15 mg and 30 mg tablets. 02/21/2024 traMADol HCl 50 MG Oral Tablet (Ultram) Take 1 Tablet by mouth every 6 hours as needed for Pain, Severe. 02/21/2024 Toumeghna SoloStar 300 UNIT/ML Subcutaneous Solution Pen-injector (Insulin Glargine (1 Unit Dial)) Inject 40 units twice daily- this replaces lantus 02/21/2024 Pantoprazole Sodium 40 MG Oral Tablet Delayed Release (Protonix) TAKE 1 TABLET BY MOUTH TWICE A DAY02/21/2024 Metoprolol Succinate ER 100 MG Oral Tablet Extended Release 24 Hour (toPROL XL) Take 1 tab by mouthtwice per day 02/21/2024 Movantik 25 MG Oral Tablet (Naloxegol Oxalate) take 1 tablet by mouth in the morning 02/21/2024 Aspirin 81 MG Oral Tablet Delayed Release Take 1 Tablet by mouth in the morning. 02/21/2024 Spironolactone 25 MG Oral Tablet (Aldactone) Take 1 Tablet by mouth in the morning. 02/21/2024 Metamucil 0.52 GM Oral Capsule (Psyllium) Take 1 Capsule by mouth in the morning and 1 Capsule at noon and 1 Capsule before bedtime. 02/21/2024 Polyethylene Glycol 3350 17 GM Oral Packet (Miralax) Mix 1 Packet in 4 to 8 ounces of any beverage and drink by mouth in the morning. 02/21/2024 Sennosides-Docusate Sodium 8.6-50 MG Oral Tablet (Senokot-S) Take 1 Tablet by mouth in the morning.02/21/2024 Torsemide 10 MG Oral Tablet (Demadex) Take 1 Tablet by mouth in the morning. 02/21/2024 Atorvastatin Calcium 20 MG Oral Tablet (Lipitor) Take 1 Tablet by mouth in the morning. Past Month Losartan Potassium 100 MG Oral Tablet (Cozaar) Take 1 Tablet by mouth in the morning. 02/21/2024 Gabapentin 100 MG Oral Capsule (Neurontin) take 1 capsule by mouth every morning and 2 capsules by mouth at bedtime 02/21/2024 Metoclopramide HCl 10 MG Oral Tablet (Reglan) take 1 tablet by mouth three times a day ( 30 MINUTESbefore MEALS ) 02/21/2024 metFORMIN HCl 500 MG Oral Tablet (Glucophage) Take 2 Tablets by mouth in the morning and 2 Tablets in the evening. 02/21/2024 Dicyclomine HCl 10 MG Oral Capsule (Bentyl) take 1 capsule by mouth four times a day 02/21/2024 Famotidine 20 MG Oral Tablet (Pepcid) Take 1 Tablet by mouth every night at bedtime. 02/21/2024 BD Pen Needle Short U/F 31G X 8 MM (Insulin Pen Needle) Use to inject insulin 5 times daily Fluticasone-Salmeterol 115-21 MCG/ACT Inhalation Aerosol (Advair HFA) Inhale 2 Puffs by mouth in the morning and 2 Puffs before bedtime. Over 30 Days Ondansetron HCl 4 MG Oral Tablet Take 1 Tablet by mouth every 8 hours as needed for Nausea. Albuterol Sulfate HFA 108 (90 Base) MCG/ACT Inhalation Aerosol Solution inhale 2 puffs by mouth andINTO THE LUNGS every 6 hours if needed for cough shortness of breath or WITHDRAWAL SYMPTOMS Over 30Days Review of patient's allergies indicates: Allergen Reactions Nsaids Gastric problems Other Reaction(s): gastroparesis, kidney problems, use with caution : hx esophagus damage Ceclor [Cefaclor] Unknown As child Jardiance [Empagliflozin] Other (Please comment) DKA with hospitalization BP 142/66 | Pulse 112 | Temp 36.3 C (97.3 F) (Temporal Artery) | Resp 21 | Ht 1.854 m (6' 1") |Wt 135.6 kg (299 lb) | SpO2 95% | BMI 39.45 kg/m | BSA 2.64 m Physical Exam: Mental Status Examination: alert and oriented. Resp: normal CV: normal rate ASA Grade: III - A patient with severe systemic disease. Abdomen: soft This patient has undergone a preprocedural evaluation. A determination has been made to proceed with the planned procedure under [facility] procedural guidelines and the CMS Non-Emergent, Elective Medical Services and Treatment Recommendations (published on 01-23-20). The community and hospital prevalence of COVID-19 has been discussed as well as this patient's specific risks associated with SARS-CoV-19 infection. Based upon the clinical acuity and patient-specific care considerations, this procedure is deemed a Tier III - Procedures at little or no risk for clinical deterioration (example - cosmetic). After reviewing the risks and benefits, the patient is deemed in satisfactory condition to undergo the procedure. The anesthesia plan is to use general anesthesia. Marcela Del Valle MD 02/22/2024 documented in this encounter Procedure Notes * Velasquez Valencia MD - 02/22/2024 8:14 AM EDTAssociated Order(s): COLONOSCOPY [facility] Patient Name: Bry Akhtar Procedure Date: 02/22/2024 8:14 AM Date of : 1975 Admit Type: Outpatient Note Status: Finalized Date of : 1975 Admit Type: Outpatient Age: 48 Room: OR 5 Gender: Male Note Status: Finalized Procedure: Colonoscopy Indications: Screening for colorectal malignant neoplasm Providers: Marcela Del Valle MD Patient Profile: Last Colonoscopy: within the past year - poor prep Referring MD: Velasquez Valencia MD, Belen Jones, Medicines: See the Anesthesia note for documentation of the administered medications Complications: No immediate complications. Procedure: Pre-Anesthesia Assessment: - Patient identification and proposed procedure were verified prior to the procedure by the physician, the nurse and the anesthesiologist. The procedure was verified in the pre-procedure area. - Prior to the procedure, a History and Physical was performed, and patient medications, allergies and sensitivities were reviewed. The patient's tolerance of previous anesthesia was reviewed. - The risks and benefits of the procedure and the sedation options and risks were discussed with the patient. All questions were answered and informed consent was obtained. - The medication list for this patient has been reviewed prior to the procedure and has been determined that the patient may proceed with the planned study. Any medication changes made as a result of the findings of this procedure have been discussed with the patient and/or customer care representative at the time of discharge from the department. After I obtained informed consent, the scope was passed under direct vision. All instruments were visually inspected immediately before and after removal from the patient to ensure they are fully intact. Throughout the procedure, the patient's blood pressure, pulse, and oxygen saturations were monitored continuously. The [id number] Colonoscope ([id number]) was introduced through the anus and advanced to the cecum, identified by appendiceal orifice and ileocecal valve. The colonoscopy was performed without difficulty. The patient tolerated the procedure well. The quality of the bowel preparation was adequate to identify polyps 6 mm and larger in size. Findings & Specimens: The examined colon appeared normal. The exam was otherwise without abnormality on direct and retroflexion views. Impression: - The examined colon appeared normal. - The examination was otherwise normal on direct and retroflexion views. Recommendation: - Repeat colonoscopy in 5 years for screening purposes. Marcela Del Valle MD 02/22/2024 8:46:39 AM This report has been signed electronically. Estimated Blood Loss: Estimated blood loss was minimal. * Velasquez Valencia MD - 02/22/2024 8:13 AM EDTAssociated Order(s): UPPER GI ENDOSCOPY [facility] Patient Name: Bry Akhtar Procedure Date: 02/22/2024 8:13 AM Date of : 1975 Admit Type: Outpatient Note Status: Finalized Date of : 1975 Admit Type: Outpatient Age: 48 Room: OR 5 Gender: Male Note Status: Finalized Procedure: Upper GI endoscopy Indications: Epigastric abdominal pain Providers: Marcela Del Valle MD Referring MD: Velasquez Valencia MD Medicines: See the Anesthesia note for documentation of the administered medications Complications: No immediate complications. Procedure: Pre-Anesthesia Assessment: - Patient identification and proposed procedure were verified prior to the procedure by the physician, the nurse and the anesthesiologist. The procedure was verified in the pre-procedure area. - Prior to the procedure, a History and Physical was performed, and patient medications, allergies and sensitivities were reviewed. The patient's tolerance of previous anesthesia was reviewed. - The risks and benefits of the procedure and the sedation options and risks were discussed with the patient. All questions were answered and informed consent was obtained. - The medication list for this patient has been reviewed prior to the procedure and has been determined that the patient may proceed with the planned study. Any medication changes made as a result of the findings of this procedure have been discussed with the patient and/or customer care representative at the time of discharge from the department. After obtaining informed consent, the endoscope was passed under direct vision. All instruments were visually inspected immediately before and after removal from the patient to ensure they are fully intact. Throughout the procedure, the patient's blood pressure, pulse, and oxygen saturations were monitored continuously. The [id number] Endoscope ([id number]) was introduced through the mouth and advanced to the second part of duodenum. The upper GI endoscopy was accomplished without difficulty. The patient tolerated the procedure well. Findings & Specimens: The examined esophagus appeared normal. The Z-line appeared regular. The entire examined stomach was normal. Localized mild inflammation characterized by erythema was found in the gastric antrum. Biopsies were taken with a cold forceps for Helicobacter pylori testing. The pathology specimen was placed into Bottle A. Verification of patient identification for the specimen was done by the physician and nurse using the patient's name and medical record number. The duodenal bulb and second portion of the duodenum appeared normal. Impression: - Normal esophagus. - Z-line regular. - Normal stomach. - Antral gastritis. Biopsied. - Normal duodenal bulb and second portion of the duodenum. Recommendation: - Await pathology results. - Proceed to colonoscopy. Marcela Del Valle MD 02/22/2024 8:47:11 AM This report has been signed electronically. Estimated Blood Loss: Estimated blood loss was minimal. documented in this encounter Nursing Notes * Karly Valdse RN - 02/22/2024 9:46 AM EDT [place] [id number] [facility] Discharge Note Name: Bry Akhtar Jr. Date: 02/22/2024 Time: 9:46 AM Discharge Disposition: Home Responsible adult as escort home: yes Transport Mode: Wheelchair Accompanied by: staff To: Car Belongings with patient: Yes Patient meets criteria to be transferred or discharged. * Merlene Miller RN - 02/22/2024 8:45 AM EDT EGD/colonoscopy completed. Sedated by AMMONIA NITRATE OPERATOR. See anesthesia record for VS and medications given. Pt tolerated procedure well with minimal gagging. Abd soft. Airway patent. Pt to recovery on L side with HOB elevated. Report to recovery room nurse. Specimen collected and sent. Bedside cleaning done. documented in this encounter Plan of Treatment Upcoming Encounters Date Type Department Care Team (Late st Contact Info) Description 03/03/2024 9:40 AM EDT Office Visit Pharmacy, [place] [address] [place] [address] [facility] [address] [place] [address] 05/08/2024 11:40 AM EDT Office Visit [facility] [address] [place] [address] Velasquez Valencia MD [address] [place] [address] Pending Results Name Type Priority Associated Diagnoses Date /Time SURGICAL PATHOLOGY Pathology Routine 2023 8:46 AM EDT Scheduled Orders Name Type Priority Associated Diagnoses Orde r Schedule SURGICAL PATHOLOGY Pathology Routine One Ti me for 1 Occurrences starting 02/22/2024 until 02/22/2024, 1 completed Scheduled Procedures Name Priority Associated Diagnoses Date/Ti me COLONOSCOPY FLEXIBLE PROXIMA L DIAGNOSTIC Screening for colon cancer Abdominal pain 02/22/2024 7:55 AM EDT ESOPHAGOGASTRODUODENOSCOPY ( EGD), FLEXIBLE, TRANSORAL, DIAGNOSTIC Screening for colon cancer Abdominal pain 02/22/2024 7:55 AM EDT Health Maintenance Due Date Last Done Comments HIV Screening 1988 Alpha-1 Antitrypsin 1991 Hepatitis C Screening 1991 Hepatitis B (1 of 3 - 19+ 3-dose series) 1992 Cologuard 2018 Fecal Occult Blood Test 2018 Sigmoidoscopy 2018 COVID-19 Vaccine (2022-24 season) 2023 10/21/2021, 03/01/2021, 02/07/2021 DISCUSS TOBACCO CESSATION (REFER TO SMARTSET #[id number]) 10/16/2023 10/16/2022 Zoster Vaccines (1 of 2) [...] 09/01/2021, Additional history exists Colonoscopy 02/21/2029 02/22/2024, 03/19, 04/18/2015 Colorectal Cancer Screening 02/21/2029 Influenza Vaccine (FLU shot) Completed 07/09/2023, 10/16/2022, 07/31/2021, Additional history exists Pneumococcal Vaccine: Pediatrics (0 to 5 Years) and At-Risk Patients (6 to 64 Years) Completed 07/09/2023, 11/03/2015, 02/09/2006 Lung Cancer Screening Completed 02/09/2024 , 09/19/2023, 12/15/2022, Additional history exists RETIRED - COLONOSCOPY-EVERY 5 YRS AGES 18-100 Discontinued 02/22/2024, 04/15/2023, 04/18/2015 GARDASIL-HPV IMMUNIZATION SERIES Aged Out No longer eligible based on patient's age to complete this topic MENINGOCOCCAL (MENACTRA/MENVEO) Aged Out No longer eligible based on patient's age to complete this topic documented as of this encounter Medical Devices Implanted Type Area Painter Drum Device Identifier Shelf Expiration Date Model / Serial / Lot Suture [place] Dbl Load 4.75mm - [id number] Implanted:Qty: 1 on 12/01/2019 by Judith Condon DO at [facility] Right: Shoulder [employer] 07/17/2021 [id number]-[id number] -2 / / [id number] Suture [place] Dbl Load 5.5mm - [id number] Implanted:Qty: 1 on 12/01/2019 by Judith Condon DO at [facility] Right: Shoulder [employer] 09/16/2021 AR-2323BCT -2 / / [id number] documented as of this encounter Procedures Procedure Name Priority Date/Time Associated Diagnosis Comments COLONOSCOPY 02/22/2024 8:14 AM EDT UPPER GI ENDOSCOPY 02/22/2024 8: 13 AM EDT GLUCOSE METER, POINT OF CARE [place] 02/22/2024 7:10 AM EDT documented in this encounter Results * COLONOSCOPY (02/22/2024 8:14 AM EDT) 02/22/2024 8:14 AM EDT Narrative Procedure Note Velasquez Valencia MD - 02/22/2024 8:14 AM EDT [facility] Patient Name: Bry Akhtar Procedure Date: 02/22/2024 8:14 AM Date of : 1975 Admit Type: Outpatient Note Status:Finalized Date of : 1975 Admit Type: Outpatient Age: 48 Room: OR 5 Gender: Male Note Status: Finalized Procedure: Colonoscopy Indications: Screening for colorectal malignant neoplasm Providers: Marcela Del Valle MD Patient Profile: Last Colonoscopy: within the past year - poorprep Referring MD: Velasquez Valencia MD, Belen Jones, DO Medicines: See the Anesthesia note for documentation of theadministered medications Complications: No immediate complications. Procedure: Pre-Anesthesia Assessment: - Patient identification and proposed procedurewere verified prior to the procedure by the physician, the nurse and theanesthesiologist. The procedure was verified in the pre-procedure area. - Prior to the procedure, a History and Physicalwas performed, and patient medications, allergies and sensitivities werereviewed. The patient's tolerance of previous anesthesia was reviewed. - The risks and benefits of the procedure and thesedation options and risks were discussed with the patient. All questions wereanswered and informed consent was obtained. - The medication list for this patient has beenreviewed prior to the procedure and has been determined that the patient may proceed with the plannedstudy. Any medication changes made as a result of the findings of this procedure have beendiscussed with the patient and/or customer care representative at the [facility] After I obtained informed consent, the scope waspassed under direct vision. All instruments were visually inspected immediatelybefore and after removal from the patient to ensure they are fully intact. Throughout the procedure, the patient's bloodpressure, pulse, and oxygen saturations were monitored continuously. The [id number] ([id number]) was introduced through the anus and advanced to the cecum,identified by appendiceal orifice and ileocecal valve. The colonoscopy was performedwithout difficulty. The patient tolerated the procedure well. The quality of thebowel preparation was adequate to identify polyps 6 mm and larger in size. Findings & Specimens: The examined colon appeared normal. The exam was otherwise without abnormality on direct and retroflexionviews. Impression: - The examined colon appeared normal. - The examination was otherwise normal on directand retroflexion views. Recommendation: - Repeat colonoscopy in 5 years for screeningpurposes. Marcela Del Valle MD 02/22/2024 8:46:39 AM This report has been signed electronically. Estimated Blood Loss: Estimated blood loss was minimal. Velasquez Valencia MD GASTRO LOWER * UPPER GI ENDOSCOPY (02/22/2024 8:13 AM EDT) 02/22/2024 8:13 AM EDT Narrative Procedure Note Velasquez Valencia MD - 02/22/2024 8:13 AM EDT [facility] Patient Name: Bry Akhtar Procedure Date: 02/22/2024 8:13 AM Date of : 1975 Admit Type: Outpatient Note Status:Finalized Date of : 1975 Admit Type: Outpatient Age: 48 Room: OR 5 Gender: Male Note Status: Finalized Procedure: Upper GI endoscopy Indications: Epigastric abdominal pain Providers: Marcela Del Valle MD Referring MD: Velasquez Valencia MD Medicines: See the Anesthesia note for documentation of theadministered medications Complications: No immediate complications. Procedure: Pre-Anesthesia Assessment: - Patient identification and proposed procedurewere verified prior to the procedure by the physician, the nurse and theanesthesiologist. The procedure was verified in the pre-procedure area. - Prior to the procedure, a History and Physicalwas performed, and patient medications, allergies and sensitivities werereviewed. The patient's tolerance of previous anesthesia was reviewed. - The risks and benefits of the procedure and thesedation options and risks were discussed with the patient. All questions wereanswered and informed consent was obtained. - The medication list for this patient has beenreviewed prior to the procedure and has been determined that the patient may proceed with the plannedstudy. Any medication changes made as a result of the findings of this procedure have beendiscussed with the patient and/or customer care representative at [facility] After obtaining informed consent, the endoscope waspassed under direct vision. All instruments were visually inspected immediatelybefore and after removal from the patient to ensure they are fully intact. Throughoutthe procedure, the patient's blood pressure, pulse, and oxygen saturations weremonitored continuously. The [id number] Endoscope ([id number]) was introduced throughthe mouth and advanced to the second part of duodenum. The upper GI endoscopy wasaccomplished without difficulty. The patient tolerated the procedure well. Findings & Specimens: The examined esophagus appeared normal. The Z-line appeared regular. The entire examined stomach was normal. Localized mild inflammation characterized by erythema was found inthe gastric antrum. Biopsies were taken with a cold forceps for Helicobacter pylori testing. Thepathology specimen was placed into Bottle A. Verification of patient identification for the specimen wasdone by the physician and nurse using the patient's name and medical record number. The duodenal bulb and second portion of the duodenum appearednormal. Impression: - Normal esophagus. - Z-line regular. - Normal stomach. - Antral gastritis. Biopsied. - Normal duodenal bulb and second portion of theduodenum. Recommendation: - Await pathology results. - Proceed to colonoscopy. Marcela Del Valle MD 02/22/2024 8:47:11 AM This report has been signed electronically. Estimated Blood Loss: Estimated blood loss was minimal. Velasquez Valencia MD GASTRO UPPER * (ABNORMAL) GLUCOSE METER, POINT OF CARE (02/22/2024 7:10 AM EDT) Glucose Meter 174(H) 70 - 120 mg/dL 02/22/2024 7:32 AM EDT [facility] Blood Whole blood specimen / Unknown 02/22/2024 7:10 AM EDT 02/22/2024 7:32 AM EDT Marcela Del Valle MD LAB POINT OF CARE TE ST DOCKED DEVICE UNSOLICITED RESULTS [facility] [address] [place] [address] documented in this encounter Administered Medications Inactive Administered Medications - up to 3 most recent administrations Medication Order MAR Action Action Date Dose Rate Site albuterol-ipratropium (Duoneb) inhalation solution 3 mL 3 mL, Nebulizer, ONCE, On Wed02/22/24 at 0830, For 1 dose, 3 mL = 0.5 mg ipratropium/ 2.5 mg albuterol, Pre-Op Given 02/22/2024 8:14 AM EDT 3 mL isolyte-S pH 7.4 infusion Intravenous, at 10 mL/hr, Plasma-LYTE 148, isolyte-S, and isolyte-S pH 7.4 are considered equivalent - including for MAR barcode scanning., CONTINUOUS, Starting on Wed02/22/24 at 0745, Until Wed02/22/24 at 1353, Pre-Op Restarted 02/22/2024 8:27 AM EDT Continue from Pre-Op 02/22/2024 8:23 AM EDT 10 mL/hr New Bag 02/22/2024 7:10 AM EDT 10 mL/hr documented in this encounter Active and Recently Administered Medications Times are shown in EDT. Scheduled Medication Order 02/20/2024 02/21/2024 02/22/2024 albuterol-ipratropium (Duoneb) inhalation solution 3 mL (COMPLETED) 3 mL, Nebulizer, ONCE, On Wed02/22/24 at 0830, For 1 dose, 3 mL = 0.5 mg ipratropium/ 2.5 mg albuterol, Pre-Op 0814 (Given - Provid er: Bianca Wild, TOURS HOSTESS) Continuous Medication Order 02/20/2024 02/21/2024 02/22/2024 isolyte-S pH 7.4 infusion Intravenous, at 10 mL/hr, Plasma-LYTE 148, isolyte-S, and isolyte-S pH 7.4 are considered equivalent - including for MAR barcode scanning., CONTINUOUS, Starting on Wed02/22/24 at 0745, Until Wed02/22/24 at 1353, Pre-Op 0710 (New Bag - Prov ider: Reji Guaman RN)0823 (Continue from Pre-Op - Provider: Prasanth Ernandez CRNA)0826 (Paused - Provider: Prasanth Ernandez CRNA - Comment: Switch to gravity)0827 (Restarted - Provider: Prasanth Ernandez CRNA)0848 (Stopped - Provider: Prasanth Ernandez CRNA) documented in this encounter Advance Directives Latest [...] the patient have Health Care Power of Surveillance System Monitor? No Care Teams Director Cardiovascular Relationship Specialty Start Date End Date Velasquez Valencia MD [address] [facility] [place] [address] PCP - General Family Medicine 09/09/22 documented as of this encounter
--- OUTSIDE RECORDS SUMMARY | 2024-07-14 04:54 | External Medical Summary ---
Author Name Unknown Address Unknown Organization K1F:[facility] [address] [facility] [place] [address] Laboratory Report Ordering Provider Test Date Status LINJAMILNATHANIELOSIEL 03/03/2024 15:24:17 Final Observation Date Value Abnormality Reference (Units ) Status BUN 03/03/2024 15:24:17 22 Above high normal 6-20 (mg/dL) Final Creatinine 03/03/2024 15:24:17 0.9 0.6-1.2 (mg/dL) Final Glomerular filtration rate/1.73 sq M.predicted [Volume Rate/Area] in Serum, Plasma or Blood by Creatinine-based formula (CKD-EPI) 03/03/2024 15:24:17 >90 >=60 (mL/min) Final eGFR is calculated based on the CKD-EPI 2020 equation Sodium 03/03/2024 15:24:17 136 135-146 (m mol/L) Final Potassium 03/03/2024 15:24:17 4.8 3.5-5.1 (m mol/L) Final Cl 03/03/2024 15:24:17 96 Below low normal 98- 107 (mmol/L) Final CO2 03/03/2024 15:24:17 25 22-32 (mmo l/L) Final Anion gap 03/03/2024 15:24:17 15 7-15 (mmol /L) Final Glucose 03/03/2024 15:24:17 140 Above high normal 70 -120 (mg/dL) Final Albumin 03/03/2024 15:24:17 4.1 3.8-5.0 (g /dL) Final AST (Aspartate aminotransferase) 03/03/2024 15:24:17 16 10-50 (U/L) Fin al Alk Phos 03/03/2024 15:24:17 116 35-130 (U/ L) Final Bilirubin, Total 03/03/2024 15:24:17 0.3 <=1 .2 (mg/dL) Final Calcium 03/03/2024 15:: 10.1 8.4-10.2 ( mg/dL) Final Protein 03/03/2024 15:: 7.5 6.0-8.3 (g /dL) Final ALT (Alanine aminotransferase) 03/03/2024:: 14 10-50 (U/L) Ethan gillette Performing Location LABORATORY [facility] - [address] [place], [place] [address] [address]
--- OUTSIDE RECORDS SUMMARY | 2024-07-14 04:54 | External Medical Summary | Summary of Care ---
Author Name Unknown Organization [facility] Address [address] [place] [address] Phone [phone] Care Team Providers Care Business Machine Mechanic Name Role Phone Tati Polo MD Primary Care Provider [phone] Reason for Referral * Medication Prior Authorization - Closed Specialty Diagnoses / Procedures Referred By Bismark brown Referred To Contact Diagnoses Abdominal pain, epigastric Ttai Polo MD [address] [place] [address] Referral ID Status Reason Start Date Expiration Date Visits Re quested Visits Authorized [id number] Closed 999 570 Reason for Visit * Reason Onset Date Comments Medication Refill 02/21/2024 Encounter Details Date Type Department Care Team (Late st Contact Info) Description 02/21/2024 Refill [facility] [address] [place] [address] Tati Polo MD [address] [place] [address] Abdominal pain, epigastric Allergies Active Allergy Reactions Criticality Noted Date [...] 1 Capsule before bedtime. 30 Capsule 0 4 Active Polyethylene Glycol 3350 17 GM Oral Packet (Miralax) Mix 1 Packet in 4 to 8 ounces of any beverage and drink by mouth in the morning. 14 Each 0 4 Active Torsemide 10 MG Oral Tablet (Demadex) Take 1 Tablet by mouth in the morning. 30 Tablet 0 4 Active Ondansetron HCl 4 MG Oral Tablet Take 1 Tablet by mouth every 8 hours as needed for Nausea. 20 Tablet 0 4 Active Sennosides-Docusa te Sodium 8.6-50 MG Oral Tablet (Senokot-S) Take 1 Tablet by mouth in the morning. 30 Tablet 0 4 Active Spironolactone 25 MG Oral Tablet (Aldactone) Take 1 Tablet by mouth in the morning. 90 Tablet 3 4 Active Aspirin 81 MG Oral Tablet Delayed Release Take 1 Tablet by mouth in the morning. 90 Tablet 3 4 Active Fluticasone-Salme terol 115-21 MCG/ACT Inhalation Aerosol (Advair HFA) Inhale 2 Puffs by mouth in the morning and 2 Puffs before bedtime. 12 g 12 4 Active Metoprolol Succinate ER 100 MG [...] less than 7.0% ([facility]) Inject 32 units with breakfast 22 [...] mg tablets. 90 Tablet 4 4 Active Cyclobenzaprine HCl 10 MG Oral Tablet (Flexeril)Indicat ions:Lumbar disc herniation TAKE 1 TABLET BY MOUTH AT BEDTIME ONLY NEEDED 30 Tablet 0 4 Active traMADol HCl 50 MG Oral Tablet (Ultram)Indicatio ns:Abdominal pain, epigastric Take 1 Tablet by mouth every 6 hours as needed for Pain, Severe. 40 Tablet 0 4 Active Movantik 25 MG Oral Tablet (Naloxegol Oxalate) take 1 tablet by mouth in the morning 30 Tablet 1 4 02/22/20 24 Discontinued traMADol HCl 50 MG Oral Tablet (Ultram)Indicatio ns:Abdominal pain, epigastric Take 1 Tablet by mouth every 6 hours as needed for Pain, Severe. 40 Tablet 0 4 02/21/20 24 Discontinued(Ref ill) documented as of this [...] IM 11/04/2009 Pneumococcal Conjugate Vacci ne, 20-valent ([id number]) 07/09/2023 Pneumococcal Polysaccharide PPV23 (Pneumovax) 11/03/2015,02/09/2006 Seasonal [...] Telephone Encounter - Tati Polo MD - 02/22/2024 7:07 PM EDTSigned Prescriptions: Disp Refills traMADol HCl 50 MG Oral Tablet (Ultram) 40 Tab*0 Sig: Take 1 Tablet by mouth every 6 hours as needed for Pain, Severe.Authorizing Provider: TATI POLO------ * Telephone Encounter - Arvin Leong [facility] - 02/22/2024 11:24 AM EDTPending Prescriptions: Disp Refills traMADol HCl 50 MG Oral Tablet (Ultram) 40 Tab*0 Sig: Take 1 Tablet by mouth every 6 hours as needed for Pain, Severe. * Telephone Encounter - Arvin Leong [facility] - 02/22/2024 11:24 AM EDT I have reviewed the patients controlled substance dispensing history in the Prescription Drug Monitoring Program in compliance with the [facility] regulations before prescribing a controlled substance. PDMP checked on 02/22/2024. Pending Prescriptions: Disp Refills traMADol HCl 50 MG Oral Tablet (Ultram) 40 Tab*0 Sig: Take 1 Tablet by mouth every 6 hours as needed for Pain, Severe. Last Visit: 02/10/2024 (in office), Visit date not found (telemedicine) Next Visit: 05/08/2024 Date medication was last filled: 02-10-24 Date medication is due for refill: 02-20-24 Pharmacy: [id number] [place] Is this request for a controlled substance? Yes and Urine Drug Screen Not completed Toxicology results: No results found. However, due to the size of the patient record, not all encounters were searched.Please check Results Review for a complete set of results. Please approve if appropriate. Thanks, Arvin Leong, Russ.Ph. Clinical Pharmacist [facility] [phone] ext [phone] 02/22/2024,11:24 AM * Telephone Encounter - Margarita Taylor [facility] - 02/21/2024 10:01 AM EDT Did you pend patient's preferred pharmacy and medication before forwarding?yes Pharmacy: [id number] [place] Pending Prescriptions: Disp Refills traMADol HCl 50 MG Oral Tablet (Ultram) 40 Tab*0 Sig: Take 1 Tablet by mouth every 6 hours as needed for Pain, Severe. Last Visit: 02/10/2024 (in office), Visit date not found (telemedicine) Next Visit: 05/08/2024 If no future appointments scheduled, and last appointment is greater than a year ago, please schedule patient for a follow-up appointment Last date the medication was ordered: 02/10/24 Is this request for a controlled substance?Take 1 Tablet by mouth every 6 hours as needed for Pain,Severe. Urine Drug Screen:No results found. However, due [...] 03/03/2024 9:40 AM EDT [facility] [place] [address] [facility] [address] [facility] [address] [place] [address] 05/08/2024 11:40 AM EDT Office Visit [facility], [place] [address] [facility] [place] [phone] Tati Polo MD [address] [place] [address] Scheduled Procedures Name Priority Associated Diagnoses Date/Ti [...] Depression Screening 01/13/2025 01/14/2024 GFR 02/06/2025 02/07/2024, 0303/2024, 12/14/2023, Additional history exists O2 ASSESSMENT COMPLETED [...] this encounter Medical Devices Implanted Type Area Ladle Operator Device Identifier Shelf Expiration Date Model / Serial / Lot Suture [place] Dbl Load 4.75mm - [id number] Implanted:Qty: 1 on 12/01/2019 by Judith Condon DO at [facility] Right: Shoulder [employer] 07/17/2021 AR-2324BCT -2 / / [id number] Suture [place] Dbl Load 5.5mm - [id number] Implanted:Qty: 1 on 12/01/2019 by Judith Condon DO at [facility] Right: Shoulder [employer] 09/16/2021 AR-2323BCT -2 / / [id number] documented as of this encounter Visit Diagnoses Diagnosis Abdominal pain, epigastric documented in this encounter Advance Directives Latest [...] the patient have Health Care Power of Rehab Tech? No Care Teams Business Machine Mechanic Relationship Specialty Start Date End Date Tati Polo MD [address] [facility] [place] [address] PCP - General Family Medicine 09/09/22 documented as of this encounter
--- OUTSIDE RECORDS SUMMARY | 2024-07-14 04:54 | External Medical Summary ---
Author Name Unknown Address Unknown Organization : Laboratory Report Ordering Provider Test Date Status MARTHA GREENE 03/03/2024 21:10:53 Final Observation Date Value Abnormality Reference (Units ) Status Glucose Point of Care 03/03/2024 21:10:53 187 Above high normal 70-120 (mg/dL) Final Performing Location
--- OUTSIDE RECORDS SUMMARY | 2024-07-14 04:54 | External Medical Summary | Summary of Care ---
Author Name Unknown Organization [facility] Address [address] [place] [facility] [place] [address] Phone [phone] Care Team Providers Care Epidemiology Internship Name Role Phone Tati Polo MD Primary Care Provider [phone]- [phone] Reason for Visit * Reason Comments eRx-Medication Refill Encounter Details Date Type Department Care Team (Late st Contact Info) Description 02/21/2024 Refill [facility] [address] [place] [address] Tati Polo MD [address] [place] [address] Allergies Active Allergy Reactions Criticality Noted Date Comments Cefaclor Unknown 07/26/2018 As child Empagliflozin Other (Please comment) 05/16/2021 DKA with hospitalization Nsaids High 04/19/2019 Gastric problems Other Reaction(s): gastroparesis, kidney problems, use with caution : hx esophagus damage documented as of this encounter (statuses as of 02/22/2024) Medications Medication Sig Dispensed Refills Start Date End Date Status Movantik 25 MG Oral Tablet (Naloxegol Oxalate) take 1 tablet by mouth in the morning 30 Tablet 0 4 Active Albuterol Sulfate HFA 108 (90 Base) MCG/ACT Inhalation Aerosol SolutionIndicatio ns:RSV bronchitis inhale 2 puffs by mouth and INTO THE LUNGS every 6 hours if needed for cough shortness of breath or WITHDRAWAL SYMPTOMS 54 g 3 3 Suspended Additional Information Famotidine 20 MG Oral Tablet (Pepcid) Take 1 Tablet by mouth every night at bedtime. 90 Tablet 3 3 Suspended Additional Information Dicyclomine HCl 10 MG Oral Capsule (Bentyl) take 1 capsule by mouth four times a day 360 Capsule 3 3 Suspended Additional Information metFORMIN HCl 500 MG Oral Tablet (Glucophage)Indic ations:Type 2 diabetes mellitus with hemoglobin A1c goal of less than 7.0% (HCC) Take 2 Tablets by mouth in the morning and 2 Tablets in the evening. 360 Tablet 3 3 Suspended Additional Information Gabapentin 100 MG Oral Capsule (Neurontin)Indica tions:Neuropathy take 1 capsule by mouth every morning and 2 capsules by mouth at bedtime 270 Capsule 1 3 Suspended Additional Information Metoclopramide HCl 10 MG Oral Tablet (Reglan) take 1 tablet by mouth three times a day ( 30 MINUTES before MEALS ) 270 Tablet 1 3 Suspended Additional Information Losartan Potassium 100 MG Oral Tablet (Cozaar) Take 1 Tablet by mouth in the morning. 90 Tablet 3 3 Suspended Additional Information Atorvastatin Calcium 20 MG Oral Tablet (Lipitor) Take 1 Tablet by mouth in the morning. 90 Tablet 3 3 Suspended Additional Information Metamucil 0.52 GM Oral Capsule (Psyllium) Take 1 Capsule by mouth in the morning and 1 Capsule at noon and 1 Capsule before bedtime. 30 Capsule 0 4 Suspended Additional Information Polyethylene Glycol 3350 17 GM Oral Packet (Miralax) Mix 1 Packet in 4 to 8 ounces of any beverage and drink by mouth in the morning. 14 Each 0 4 Suspended Additional Information Torsemide 10 MG Oral Tablet (Demadex) Take 1 Tablet by mouth in the morning. 30 Tablet 0 4 Suspended Additional Information Ondansetron HCl 4 MG Oral Tablet Take 1 Tablet by mouth every 8 hours as needed for Nausea. 20 Tablet 0 4 Suspended Additional Information Sennosides-Docusa te Sodium 8.6-50 MG Oral Tablet (Senokot-S) Take 1 Tablet by mouth in the morning. 30 Tablet 0 4 Suspended Additional Information Spironolactone 25 MG Oral Tablet (Aldactone) Take 1 Tablet by mouth in the morning. 90 Tablet 3 4 Suspended Additional Information Aspirin 81 MG Oral Tablet Delayed Release Take 1 Tablet by mouth in the morning. 90 Tablet 3 4 Suspended Additional Information Fluticasone-Salme terol 115-21 MCG/ACT Inhalation Aerosol (Advair HFA) Inhale 2 Puffs by mouth in the morning and 2 Puffs before bedtime. 12 g 12 4 Suspended Additional Information Movantik 25 MG Oral Tablet (Naloxegol Oxalate) take 1 tablet by mouth in the morning 30 Tablet 1 4 02/22/20 24 Discontinued Metoprolol Succinate ER 100 MG Oral Tablet Extended Release 24 Hour (toPROL XL)Indications:HT N, goal below 140/90 Take 1 tab by mouth twice per day 180 Tablet 3 4 Suspended Additional Information Pantoprazole Sodium 40 MG Oral Tablet Delayed Release (Protonix) TAKE 1 TABLET BY MOUTH TWICE A DAY 180 Tablet 1 4 Suspended Additional Information Toujeo SoloStar 300 UNIT/ML Subcutaneous Solution Pen-injector (Insulin Glargine (1 Unit Dial))Indications :Type 2 diabetes mellitus with hemoglobin A1c goal of less than 7.0% (HCC) Inject 40 units twice daily- this replaces lantus 54 mL 4 4 Suspended Additional Information BD Pen Needle Short U/F 31G X 8 MM (Insulin Pen Needle)Indication s:Type 2 diabetes mellitus with hemoglobin A1c goal of less than 7.0% (HCC) Use to inject insulin 5 times daily 500 Each 3 4 Suspended Additional Information traMADol HCl 50 MG Oral Tablet (Ultram)Indicatio ns:Abdominal pain, epigastric Take 1 Tablet by mouth every 6 hours as needed for Pain, Severe. 40 Tablet 0 4 Suspended Additional Information Insulin Aspart FlexPen 100 UNIT/ML Subcutaneous Solution Pen-injectorIndic ations:Type 2 diabetes mellitus with hemoglobin A1c goal of less than 7.0% (HCC) Inject 32 units with breakfast 22 units with lunch and 22 units with supper plus CF of 1:12 over 150. Max daily dose of 115 units 120 mL 4 4 Suspended Additional Information Pioglitazone HCl 45 MG Oral Tablet (Actos)Indication s:Type 2 diabetes mellitus with hemoglobin A1c goal of less than 7.0% (HCC) Take 1 Tablet by mouth in the morning. Please fill in about a month- patient is going to be using up his current supply of 15 mg and 30 mg tablets. 90 Tablet 4 4 Suspended Additional Information Cyclobenzaprine HCl 10 MG Oral Tablet (Flexeril)Indicat ions:Lumbar disc herniation TAKE 1 TABLET BY MOUTH AT BEDTIME ONLY NEEDED 30 Tablet 0 4 Suspended Additional Information documented as of this [...] mRNA, LNP-s, No Pre serve, 2-Dose Series (GPal) 10/21/2021,03/01/2021,02/07/2021 H1N1 2009 Influenza, IM 11/04/2009 Pneumococcal Conjugate Vacci ne, 20-valent ([id number]) 07/09/2023 Pneumococcal Polysaccharide PPV23 (Pneumovax) 11/03/2015,02/09/2006 Seasonal [...] Encounter - Tati Polo MD - 02/22/2024 9:00 AM EDTSigned Prescriptions: Disp Refills Movantik 25 MG Oral Tablet (Naloxegol Oxal*30 Tab*0 Sig: take 1tablet by mouth in the morningAuthorizing Provider: TATI POLO * Telephone Encounter - Radha Fair LPN - 02/22/2024 8:22 AM EDTPending Prescriptions: Disp Refills Movantik 25 MG Oral Tablet [Pharmacy Med N*30 Tab*0 Sig: take 1 tablet by mouth in the morning * Telephone Encounter - Ashlee Teran - 02/22/2024 6:29 AM EDTPending Prescriptions: Disp Refills Movantik 25 MG Oral Tablet [Pharmacy Med N*30 Tab*0 Sig: take 1tablet by mouth in the morning documented in this encounter Plan of Treatment Upcoming Encounters Date Type Department Care Team (Late st Contact Info) Description 03/03/2024 9:40 AM EDT Office Visit Pharmacy, [place] [address] [place] [address] [place] [address] [place] [facility] [place] [address] 05/08/2024 11:40 AM EDT Office Visit Family [facility], [place] [address] [place] [phone] Tati Polo MD [address] [place] [address] Scheduled Procedures Name Priority Associated Diagnoses Date/Ti [...] this encounter Medical Devices Implanted Type Area Die Engraver Device Identifier Shelf Expiration Date Model / Serial / Lot Suture Bells Dbl Load 4.75mm - [id number] Implanted:Qty: 1 on 12/01/2019 by Judith Condon, at [facility] Right: Shoulder [employer] 07/17/2021 AR-2324BCT -2 / / [id number] Suture Bells Dbl Load 5.5mm - [id number] Implanted:Qty: 1 on 12/01/2019 by Judith Condon, at [facility] Right: Shoulder [employer] 09/16/2021 AR-2323BCT -2 / / [id number] documented as of this encounter Advance Directives [...] the patient have Health Care Power of Food Safety Technician? No Care Teams Epidemiology Internship Relationship Specialty Start Date End Date Tati Polo MD [address] [place] [address] PCP - General Family Medicine 09/09/22 documented as of this encounter
--- OUTSIDE RECORDS SUMMARY | 2024-07-14 04:54 | External Medical Summary ---
Author Name Unknown Address Unknown Organization K1F:[facility]ATORY [facility] - [address] [facility]. [place] [address] Laboratory Report Ordering Provider Test Date Status LIN,JAMILNATHANIELOSIEL 03/03/2024 15:24:17 Final Observation Date Value Abnormality Reference (Units ) Status SYNC LEUKOCYTES IN BLOOD BY AUTOMATED COUNT 03/03/2024 15:24:17 10.46 4.00-10.80 (K/uL) Final Segs 03/03/2024 15:24:17 62.5 40.0-75.0 (%) Final Lymphs % 03/03/2024 15:24:17 16.3 Below low normal 18.0-42.0 (%) Final Monos 03/03/2024 15:24:17 14.0 Above high normal 1.0-11.0 (%) Final Eosinophils 03/03/2024 15:24:17 4.3 0.0-6.0 (%) Final Basos 03/03/2024 15:24:17 0.9 0.0-2.0 (%) Final Immature Granulocyte, Percent 03/03/2024 15:24:17 2.0 0.0-2.0 (%) Final Absolute Segs 03/03/2024 15:24:17 6.54 1.80-7.70 (K/uL) Final Lymphs, absolute 03/03/2024 15:24:17 1.71 1.00-4.80 (K/ul) Final Monos, Abs 03/03/2024 15:24:17 1.46 Above high normal 0.00-1.10 (K/uL) Final Eos, Abs 03/03/2024 15:24:17 0.45 0.00-0.70 (K/uL) Final Basos, Abs 03/03/2024 15:24:17 0.09 0.00-0.20 (K/uL) Final Immature Granulocytes, Number 03/03/2024 15:24:17 0.21 Above high normal 0.00-0.20 (K/uL) Final Performing Location LABORATORY [facility] - [address] [place] [address]
--- OUTSIDE RECORDS SUMMARY | 2024-07-14 04:54 | External Medical Summary ---
Author Name Unknown Address Unknown Organization : Laboratory Report Ordering Provider Test Date Status MARTHA GREENE 03/03/2024 18:41:00 Final Observation Date Value Abnormality Reference (Units ) Status Glucose Point of Care 03/03/2024 18:41:00 157 Above high normal 70-120 (mg/dL) Final Performing Location
--- OUTSIDE RECORDS SUMMARY | 2024-07-14 04:54 | External Medical Summary ---
Author Name Unknown Address Unknown Organization K1F:LABORATORY [address] [place] [address] Laboratory Report Ordering Provider Test Date Status SINTIA CEBALLOS 03/03/2024 17:27:49 Final Observation Date Value Abnormality Reference (Units ) Status Bacteria identified in Specimen by Culture 03/03/2024 17:27:49 No growth Final Test: Culture, Blood
Sp ecimen Source: Blood, Venous
Specimen Type: Blood
Specimen Date: 03/03/20241726
Result Date: 03/08/2024 180
Result Status: Final result
Resulting Lab: LAB[facility]ATORY [facility]
[address] [place] [address]
[place] [address]

CULTURE

No growth

null Performing Location LABORATORY [address] [place] [address]
--- OUTSIDE RECORDS SUMMARY | 2024-07-14 04:55 | External Medical Summary | Summary of Care ---
Author Name Unknown Organization [facility] Address [address] [place] [address] Phone [phone] Care Team Providers Care Russet Repairer Name Role Phone Velasquez Valencia MD Primary Care Provider +1- [phone] Encounter Details Date Type Department Care Team (Late st Contact Info) Description 02/14/2024 1:15 PM EDT Scheduled Telephone Care Coordination and Integration [address] [place], [place] [id number] Emily Davidson, Community Health Library Helper [address] [place] [address] Allergies Active Allergy Reactions Criticality Noted Date Comments Cefaclor Unknown 07/26/2018 As child Empagliflozin Other (Please comment) 05/16/2021 DKA with hospitalization Nsaids High 04/19/2019 Gastric problems Other Reaction(s): gastroparesis, kidney problems, use with caution : hx esophagus damage documented as of this encounter (statuses as of 02/16/2024) Medications Medication Sig Dispensed Refills Start Date [...] bedtime. 12 g 12 11/17/19 24 Active Movantik 25 MG Oral Tablet (Naloxegol Oxalate) take 1 tablet by mouth in the morning 30 Tablet 1 12/27/19 24 Active Metoprolol Succinate ER 100 MG [...] daily 500 Each 3 01/19/20 24 Active Cyclobenzaprine HCl 10 MG Oral Tablet (Flexeril)Indica tions:Lumbar disc herniation TAKE 1 TABLET BY MOUTH AT BEDTIME ONLY NEEDED 30 Tablet 0 01/25/20 24 Active traMADol HCl 50 MG Oral Tablet (Ultram)Indicati ons:Abdominal pain, epigastric Take 1 Tablet by mouth every 6 hours as needed for Pain, Severe. 40 Tablet 0 02/10/20 24 Active Insulin Aspart FlexPen 100 UNIT/ML Subcutaneous Solution Pen-injectorIndi cations:Type 2 diabetes mellitus with hemoglobin A1c goal of less than 7.0% (HCC) inject 22 units subcutaneously three times a day with meals 75 mL 4 01/19/20 24 024 Discontinued(Re fill) Pioglitazone HCl 30 MG Oral Tablet (Actos)Indicatio ns:Type 2 diabetes mellitus with hemoglobin A1c goal of less than 7.0% (HCC) Take 1 Tablet by mouth in the morning. Dose increase. 90 Tablet 0 02/07/20 24 024 Discontinued documented as of this encounter (statuses as of 02/16/2024) Active Problems Problem Noted Date Diagnosed Date [...] as of this encounter (statuses as of 02/16/2024) Resolved Problems Problem Noted Date Diagnosed Date [...] as of this encounter (statuses as of 02/16/2024) Immunizations Name Administration Dates Next Due COVID-19 mRNA, LNP-s, No Pre serve, 2-Dose Series ([employer]) 10/21/2021,03/01/2021,02/07/2021 H1N1 2009 Influenza, IM 11/04/2009 Pneumococcal Conjugate Vacci ne, 20-valent ([id number]) 07/09/2023 Pneumococcal Polysaccharide PPV23 (Pneumovax) 11/03/2015,02/09/2006 Seasonal [...] as of this encounter Progress Notes * Negar Brown RN - 02/16/2024 4:35 PM EDT Kami fleming, Ema. Thank you. * Negar Brown RN - 02/14/2024 6:17 PM EDT Are you looking into resources for him? Did he check with [employer] to see if they would help at all? Could he call medical assistance/welfare to see if they have any programs that might help? I don't know of anything else, hopefully you do? Thanks Emily. * Emily Davidson, Community Health Library Helper - 02/14/2024 1:26 PM EDT Telemedicine visit: No Community Health Library Helper (AGA) documentation: CHW placed PC to patient per CM's request Patient reported that he was just at his follow up appointment today for his foot. The doctor feelshe may have to do another surgery but need to wait until the swelling comes down to know for sure. They are working on getting the swelling to come down currently. That is the main issue. Patient also reported that when he takes the Tramadol and muscle relaxer right away in the morning he does not have any back pain or stomach pain and nausea. He does not throw up either. Patient also mentioned that he talked to his landlord and they are okay with them putting in a walk in shower and will pay for some of it but not the total amount. Patient cannot afford the entire cost either. Would like some resources on who could put it in and how he can get some assistance with putting it in. It is verydifficult for him to step over the tub side and the shower chair that they have does not hold his weight and the legs buckle out. The chair is supposed to be able to hold his weight however it does not. CHW suggested maybe a different type of shower chair that would be more secure and hold his weight. However the issue is he cannot step over the side of the tub. CHW confirmed CM's contact number and encouraged patient to reach out with any concerns or questions. Emily Davidson- Community Health Worker 1 Support Services/[facility] [employer] Health Plan [email or web address] documented in this encounter Plan of Treatment Upcoming Encounters Date Type Department Care Team (Latest Contact Info) Description 02/22/2024 9:17 AM EDT Hospital Encounter OR [facility], Operating Room, [facility] - 4th Floor [address] [place] [address] Marcela Del Valle MD [address] [place] [address] 02/22/2024 9:17 AM EDT - 02/22/2024 10:07 AM EDT Surgery OR [facility], Operating Room, [facility] - 4th Floor [address] [place] [address] Marcela Del Valle MD [address] [place] [address] COLONOSCOPY FLEXIBLE PROXIMAL DIAGNOSTIC 03/03/2024 9:40 AM EDT Office Visit [facility] [address] [place] [address] [facility] [address] [place] [address] 05/08/2024 11:40 AM EDT Office Visit [facility] [address] [place] [facility] [place] [phone] Velasquez Valencia MD [address] [place] [address] Scheduled Procedures Name Priority Associated Diagnoses Date/Ti me COLONOSCOPY FLEXIBLE PROXIMA L DIAGNOSTIC Screening for colon cancer Abdominal pain 02/22/2024 9:17 AM EDT ESOPHAGOGASTRODUODENOSCOPY ( EGD), FLEXIBLE, TRANSORAL, DIAGNOSTIC Screening for colon cancer Abdominal pain 02/22/2024 9:17 AM EDT Health Maintenance Due Date Last [...] Tdap) 05/01/2028 05/01/2018 Lipid Panel 12/13/2028 12/13/2023, 03/2 10/2022, 09/01/2021, Additional history exists RETIRED - COLONOSCOPY-EVERY [...] this encounter Medical Devices Implanted Type Area Training Officer Device Identifier Shelf Expiration Date Model / Serial / Lot Suture [place] Dbl Load 4.75mm - [id number] Implanted:Qty: 1 on 12/01/2019 by Judith Condon DO at OR [facility] Right: Shoulder [employer] 07/17/2021 AR-2324BCT -2 / / [id number] Suture [place] Dbl Load 5.5mm - [id number] Implanted:Qty: 1 on 12/01/2019 by Judith Condon DO at OR [facility] Right: Shoulder [employer] 09/16/2021 AR-2323BCT -2 / / [id number] documented as of this encounter Advance Directives [...] the patient have Health Care Power of Data Migration Lead? No Care Teams Russet Repairer Relationship Specialty Start Date End Date Velasquez Valencia MD [address] [place] [address] PCP - General Family Medicine 09/09/22 documented as of this encounter
--- OUTSIDE RECORDS SUMMARY | 2024-07-14 04:55 | External Medical Summary | Summary of Care ---
Author Name Unknown Organization [facility] Address [address] [place] [address] Phone [phone] Care Team Providers Care Phone Technician Name Role Phone Velasquez Valencia MD Primary Care Provider +1- [phone] Encounter Details Date Type Department Care Team (Late st Contact Info) Description 02/14/2024 1:15 PM EDT Scheduled Telephone Care Coordination and Integration [address] [place] [address] Emily Davidson, Community Health Mainframe Programmer Analyst [address] [place] [address] Allergies Active Allergy Reactions Criticality Noted Date Comments Cefaclor Unknown 07/26/2018 As child Empagliflozin Other (Please comment) 05/16/2021 DKA with hospitalization Nsaids High 04/19/2019 Gastric problems Other Reaction(s): gastroparesis, kidney problems, use with caution : hx esophagus damage documented as of this encounter (statuses as of 02/14/2024) Medications Medication Sig Dispensed Refills Start Date [...] a day with meals 75 mL 4 01/19/2024 Active Cyclobenzaprine HCl 10 MG Oral Tablet (Flexeril)Indicati ons:Lumbar disc herniation TAKE 1 TABLET BY MOUTH AT BEDTIME ONLY NEEDED 30 Tablet 0 01/25/2024 Active Pioglitazone HCl 30 MG Oral Tablet (Actos)Indications :Type 2 diabetes mellitus with hemoglobin A1c goal of less than 7.0% (HCC) Take 1 Tablet by mouth in the morning. Dose increase. 90 Tablet 0 02/07/2024 Active traMADol HCl 50 MG Oral Tablet (Ultram)Indication s:Abdominal pain, epigastric Take 1 Tablet by mouth every 6 hours as needed for Pain, Severe. 40 Tablet 0 02/10/2024 Active documented as of this encounter (statuses as of 02/14/2024) Active Problems Problem Noted Date Diagnosed Date [...] as of this encounter (statuses as of 02/14/2024) Resolved Problems Problem Noted Date Diagnosed Date [...] diabetes mellitus 03/02/2021 07/04/2021 Intellectual disability 10/25/2019 010 03/2022 Obesity, Class II, BMI 35-39 .9, [...] as of this encounter (statuses as of 02/14/2024) Immunizations Name Administration Dates Next Due COVID-19 mRNA, LNP-s, No Pre serve, 2-Dose Series ([employer]) 10/21/2021,03/01/2021,02/07/2021 H1N1 2009 Influenza, IM 11/04/2009 Pneumococcal Conjugate Vacci ne, 20-valent ([id number]) 07/09/2023 Pneumococcal Polysaccharide PPV23 (Pneumovax) 11/03/2015,02/09/2006 Seasonal [...] Progress Notes * Negar Brown RN - 02/14/2024 6:17 PM EDT Are you looking into resources for him? Did he check with [employer] to see if they would help at all? Could he call medical assistance/welfare to see if they have any programs that might help? I don't know of anything else, hopefully you do? Thanks Emily. * Emily Davidson, Community Health Mainframe Programmer Analyst - 02/14/2024 1:26 PM EDT Telemedicine visit: No Community Health Mainframe Programmer Analyst (GAA) documentation: CHW placed PC to patient per [...] Health Worker 1 Support Services/[facility] [employer] Health Plan [email or web address] Electronically signed by Emily Davidson, Community Health Mainframe Programmer Analyst at 02/14/2024 1:34 PM EDT documented in this encounter Plan of Treatment Upcoming Encounters Date Type Department Care Team (Latest Contact Info) Description 02/16/2024 11:20 AM EDT Office Visit Pharmacy, [place] [address] [place] [facility] [place] [place] [address] [place], [facility] [address] [place] [facility] [place] [facility] [place] [address] 02/22/2024 9:17 AM EDT Hospital Encounter OR [facility], Operating Room, [facility] - 4th Floor [address] [place] [address] Marcela Del Valle MD [address] [facility] [place] [address] 02/22/2024 9:17 AM EDT - 02/22/2024 10:07 AM EDT Surgery OR [facility], Operating Room, [facility] - 4th Floor [address] [place] [address] Marcela Del Valle MD [address] [facility] [place] [address] COLONOSCOPY FLEXIBLE PROXIMAL DIAGNOSTIC 05/08/2024 11:40 AM EDT Office Visit [facility] [address] [place] [facility] [facility] [place] [address] Velasquez Valencia MD [address] [place] [facility] [place] [address] Scheduled Procedures Name Priority Associated Diagnoses Date/Ti [...] 02/07/2021 DISCUSS TOBACCO CESSATION (REFER TO SMARTSET #7150) 10/16/2023 10/16/2022 Zoster Vaccines (1 of 2) [...] this encounter Medical Devices Implanted Type Area Infant Babysitter Device Identifier Shelf Expiration Date Model / Serial / Lot Suture [place] Dbl Load 4.75mm - [id number] Implanted:Qty: 1 on 12/01/2019 by Judith Condon, at OR [facility] Right: Shoulder [employer] 07/17/2021 AR-2324BCT -2 / / [id number] Suture [place] Dbl Load 5.5mm - [id number] Implanted:Qty: 1 on 12/01/2019 by Judith Condon, at OR [facility] Right: Shoulder [employer] 09/16/2021 AR-2323BCT -2 / / [id number] documented as of this encounter Advance Directives [...] the patient have Health Care Power of Metal Weigher? No Care Teams Phone Technician Relationship Specialty Start Date End Date Velasquez Valencia MD [address] [facility] [place] [address] PCP - General Family Medicine 09/09/22 documented as of this encounter
--- OUTSIDE RECORDS SUMMARY | 2024-07-14 04:55 | External Medical Summary | Summary of Care ---
Author Name Unknown Organization [facility] Address [address] [facility] [address] Phone [phone] Care Team Providers Care Test Data Developer Name Role Phone Velasquez Valencia MD Primary Care Provider +1- [phone] Reason for Visit * Reason Comments Dosage Adjustment In Person (Anticoag Cl inic) Diabetes Follow-Up Encounter Details Date Type Department Care Team (Late st Contact Info) Description 02/16/2024 11:20 AM EDT Office Visit Pharmacy, [place] [address] [place] [address] [facility] [address] [place] [address] Type 2 diabetes mellitus with hemoglobin A1c goal of less than 7.0% ([facility])* Allergies Active Allergy Reactions Criticality Noted Date [...] tablets. 90 Tablet 4 02/16/20 24 Active Insulin Aspart FlexPen 100 UNIT/ML [...] diabetes mellitus 03/02/2021 07/04/2021 Intellectual disability 10/25/2019 0103/2022 Obesity, Class II, BMI 35-39 .9, isolated [...] IM 11/04/2009 Pneumococcal Conjugate Vacci ne, 20-valent ([id number]) 07/09/2023 Pneumococcal Polysaccharide PPV23 (Pneumovax) 11/03/2015,02/09/2006 Seasonal [...] this encounter Progress Notes * Gisel Butler, [facility] - 02/16/2024 11:10 AM EDT Images from the original note [...] in AM and 40 units in PM INC Novolog 30 units with breakfast, and 22 units with all other meals INC Pioglitazone 30 mg daily eGFR> 90 mL/min as of 12/22/23 Medication Injection Site: Abdomen Lifestyle: Diet: unchanged Glucose Review/SMBG: Readings obtained from patient device Hypoglycemia: Does your blood sugar go below 70 mg/dL? No Hyperglycemia symptoms present: none Recent Labs Units 01/14/24 1059 12/13/23 0439 10/27/23 1138 HEMOGLOBIN A1C - [facility] % 10.2* 10.1* 8.7* Recent Labs Units 02/07/24 0000 12/22/23 1148 12/14/23 0553 12/13/23 0439 ESTIMATED GLOMERULAR FILTRATION RATE - [facility] mL/min -- >90 >90 >90 CREATININE - [facility] mg/dL -- 0.8 0.8 0.8 CREATININE-OUTSIDE LAB MG/DL 0.98 -- -- -- HYPERTENSION: Patient on ACEi/ARB: yes BP Readings from Last 3 Encounters: 02/10/24 122/60 01/19/24 122/68 01/14/24 128/62 Blood pressure at goal: yes HYPERLIPIDEMIA: Patient is taking moderate or high intensity statin: yes HEALTH MAINTENANCE REVIEW: Health Maintenance Due Topic Date Due HIV Screening Never done Alpha-1 Antitrypsin Never done Hepatitis C Screening Never done Hepatitis B (1 of 3 - 19+ 3-dose series) Never done COVID-19 Vaccine (2022- season) 2023 DISCUSS TOBACCO CESSATION (REFER TO Serious BusinessSET #7020) 10/16/2023 Zoster Vaccines (1 of 2) Never done ASSESSMENT & PLAN: ICD-10-CM 1. Type 2 diabetes mellitus with hemoglobin A1c goal of less than 7.0% (HCC) E11.9 Considerations: - Jardiance caused DKA - hx of acute pancreatitis 12/14/23- avoiding GLPs and GIPs BG Readings - Blood sugars uncontrolled. Slight improvement since last adjustment of medications, but not at goal. No low blood sugars. Medications - Reviewed current regimen, patient is adherent to regimen. Will increase actos to maximum dose, and also implement a CF chart for patient to follow novolog. Toujeo dose to remain the same. Patient was also given instructions for his upcoming colonoscopy in relation to his sugars. Diet, Exercise, Lifestyle - No significant lifestyle changes since last visit. Patient denies snacking or drinking sugary drinks Patient is agreeable to SMBG with Dexcom Patient aware to contact clinic if any hypoglycemia before next visit. MEDICATION CHANGES: yes, see below; preferred pharmacy[facility] Diabetic Medications: Metformin HCL 500mg, 2 tabs BID Toujeo U300 40 units in AM and 40 units in PM INC Novolog 32 units with breakfast, and 22 units with all other meals + CF of 1:12 over 150 [see chart at bottom of note 02/16/24] INC Pioglitazone 45 mg daily eGFR> 90 mL/min as of 12/22/23 FOLLOW UP: Return to clinic in 2-3 weeks 03/03/2024 Gisel Butler [facility] Clinical Pharmacist - [facility] 02/16/2024, 11:13 AM 02/16/24 Fast Acting Insulin: Novolog To find insulin [...] levels Am meal Lunch PM Meal Snack 70 to 137 31 21 21 4 138 to 149 32 22 22 5 150 to 161 32 22 22 5 162 to 173 33 23 23 6 174 to 185 34 24 24 7 186 to 197 35 25 25 8 198 to 209 36 26 26 9 210 to 221 37 27 27 10 222 to 233 38 28 28 11 234 to 245 39 29 29 12 246 to 257 40 30 30 13 258 to 269 41 31 31 14 270 to 281 42 32 32 15 282 to 293 43 33 33 16 294 to 305 44 34 34 17 306 to 317 45 35 35 18 318 to 329 46 36 36 19 330 to 341 47 37 37 20 342 to 353 48 38 38 21 354 to 365 49 39 39 22 366 to 377 50 40 40 23 378 to 389 51 41 41 24 390 to 401 52 42 42 25 Parameters fixed 32 22 22 5 ashley 12 over 150 documented in this encounter Plan of Treatment Upcoming Encounters Date Type Department Care Team (Latest Contact Info) Description 02/22/2024 9:17 AM EDT Hospital Encounter OR [facility], Operating Room, [facility] - 4th Floor [address] [place] [address] Marcela Del Valle MD [address] [place] [address] 02/22/2024 9:17 AM EDT - 02/22/2024 10:07 AM EDT Surgery OR [facility], Operating Room, [facility] - 4th Floor [address] [place] [address] Marcela Del Valle MD [address] [place] [address] COLONOSCOPY FLEXIBLE PROXIMAL DIAGNOSTIC 03/03/2024 9:40 AM EDT Office Visit Pharmacy, [place] [address] [place] [address] [place], [facility] [address] [place] [facility] [place] [address] 05/08/2024 11:40 AM EDT Office Visit Family [facility], [place] [address] [place] [facility] [place] [address] Velasquez Valencia MD [address] [place] [address] Scheduled Procedures Name Priority Associated Diagnoses Date/Ti [...] 02/07/2021 DISCUSS TOBACCO CESSATION (REFER TO SMARTSET #3653) 10/16/2023 10/16/2022 Zoster Vaccines (1 of 2) [...] this encounter Medical Devices Implanted Type Area Greenhouse Worker Device Identifier Shelf Expiration Date Model / Serial / Lot Suture [place] Dbl Load 4.75mm - [id number] Implanted:Qty: 1 on 12/01/2019 by Judith Condon DO at OR [facility] Right: Shoulder [employer] 07/17/2021 [id number] -2 / / [id number] Suture [place] Dbl Load 5.5mm - [id number] Implanted:Qty: 1 on 12/01/2019 by Judith Condon DO at OR [facility] Right: Shoulder [employer] 09/16/2021 [id number] -2 / / [id number] documented as of this encounter Visit Diagnoses Diagnosis Type 2 diabetes mellitus with hemoglobin A1c goal of less than 7.0% (HCC)- Primary Screening for colon cancer Special screening for [...] the patient have Health Care Power of Remarketing Manager? No Care Teams Test Data Developer Relationship Specialty Start Date End Date Velasquez Valencia MD [address] [place] [address] PCP - General Family Medicine 09/09/22 documented as of this encounter
--- OUTSIDE RECORDS SUMMARY | 2024-07-14 04:55 | External Medical Summary | Summary of Care ---
Author Name Unknown Organization [facility] Address [address] [place] [address] Phone [phone] Care Team Providers Care Machine Clothing Worker Name Role Phone Velasquez Valencia MD Primary Care Provider +1- [phone] Encounter Details Date Type Department Care Team (Late st Contact Info) Description 02/14/2024 1:15 PM EDT Scheduled Telephone Care Coordination and Integration [address] [place] [address] Emily Davidson, Community Health Allergy Physician [address] [place] [address] Allergies Active Allergy Reactions Criticality [...] mRNA, LNP-s, No Pre serve, 2-Dose Series (F[employer]pps) 10/21/2021,03/01/2021,02/07/2021 H1N1 2009 Influenza, IM 11/04/2009 Pneumococcal Conjugate Vacci ne, 20-valent ([id number]) 07/09/2023 Pneumococcal Polysaccharide PPV23 (Pneumovax) 11/03/2015,02/09/2006 Seasonal [...] as of this encounter Progress Notes * Emily Davidson, Community Health Allergy Physician - 02/14/2024 1:26 PM EDT Telemedicine visit: No Community Health Allergy Physician (AGA) documentation: CHW placed PC to patient per CM's request Patient reported that he was just at his follow up appointment today for his foot. The doctor tommy may have to do another surgery but [...] Health Worker 1 Support Services/[facility] [employer] Health Plan [email or web address] documented in this encounter Plan of Treatment Upcoming Encounters Date Type Department Care Team (Latest Contact Info) Description 02/16/2024 11:20 AM EDT [address] [address] [facility] [address] [facility] [address] 02/22/2024 9:17 AM EDT Hospital Encounter OR [facility], Operating Room, [facility] - 4th Floor [address] [place] [address] Marcela Del Valle MD [address] [place] [address] 02/22/2024 9:17 AM EDT - 02/22/2024 10:07 AM EDT Surgery OR [facility], Operating Room, [facility] - 4th Floor [address] [place] [address] Marcela Del Valle MD [address] [place] [address] COLONOSCOPY FLEXIBLE PROXIMAL DIAGNOSTIC 05/08/2024 11:40 AM EDT Office Visit [facility] [address] [place] [phone] Velasquez Valencia MD [address] [place] [address] Scheduled Procedures Name Priority Associated Diagnoses Date/Ti [...] 02/07/2021 DISCUSS TOBACCO CESSATION (REFER TO SMARTSET #4979) 10/16/2023 10/16/2022 Zoster Vaccines (1 of 2) 2023 Diabetic Foot Exam 07/09/2024 07/09/2023, 0 03/07/2021, 11/27/2019, Additional history exists HbA1c 07/16/2024 01/14/2024, 11/19, 10/27/2023, Additional history exists Diabetic Eye Exam 07/28/2024 07/28/2023, , 07/22/2023, Additional history exists Albumin/Creatinine Ratio 01/13/2025 024, 01/05/2023, 09/01/2021, Additional history exists Depression Screening 01/13/2025 01/14/2024 GFR 02/06/2025 02/07/2024, 030 03/2024, 12/14/2023, Additional history exists O2 ASSESSMENT [...] this encounter Medical Devices Implanted Type Area House Supervisor Device Identifier Shelf Expiration Date Model / Serial / Lot Suture [place] Dbl Load 4.75mm - [id number] Implanted:Qty: 1 on 12/01/2019 by Judith Condon, DO at OR [facility] Right: Shoulder [employer] 07/17/2021 AR-2324BCT -2 / / [id number] Suture [place] Dbl Load 5.5mm - [id number] Implanted:Qty: 1 on 12/01/2019 by Judith Condon DO at OR [facility] Right: Shoulder [employer] 09/16/2021 AR-2323BCT -2 / / [id number] documented as of this encounter Advance Directives [...] the patient have Health Care Power of Storage Consultant? No Care Teams Machine Clothing Worker Relationship Specialty Start Date End Date Velasquez Valencia MD [address] [place] [address] PCP - General Family Medicine 09/09/22 documented as of this encounter
--- OUTSIDE RECORDS SUMMARY | 2024-07-14 04:55 | External Medical Summary | Summary of Care ---
Author Name Unknown Organization [facility] Address [address] [place] [address] Phone [phone] Care Team Providers Care Assistant Fitness Manager Name Role Phone Velasquez Valencia MD Primary Care Provider +1- [phone] Encounter Details Date Type Department Care Team (Late st Contact Info) Description 02/21/2024 2:30 PM EDT Scheduled Telephone Care Coordination and Integration [address], [place] [phone] Emily Davidson, Community Health Associate Professor Of Library Media [address] [place] [address] Allergies Active Allergy Reactions Criticality [...] times daily 500 Each 3 01/19/2024 Active Cyclobenzaprine HCl 10 MG Oral Tablet (Flexeril)Indicatio ns:Lumbar disc herniation TAKE 1 TABLET BY MOUTH AT BEDTIME ONLY NEEDED 30 Tablet 0 01/25/2024 Active traMADol HCl 50 MG Oral Tablet [...] daily dose of 115 units 120 mL 02/16/2024 Active Pioglitazone HCl 45 MG Oral Tablet (Actos)Indications: Type 2 diabetes mellitus with hemoglobin A1c goal of less than 7.0% (HCC) Take 1 Tablet by mouth in the morning. Please fill in about a month- patient is going to be using up his current supply of 15 mg and 30 mg tablets. 90 Tablet 4 02/16/2024 Active documented as of this encounter (statuses [...] mRNA, LNP-s, No Pre serve, 2-Dose Series (Jott) 10/21/2021,03/01/2021,02/07/2021 H1N1 2009 Influenza, IM 11/04/2009 Pneumococcal Conjugate Vacci ne, 20-valent ([id number]) 07/09/2023 Pneumococcal Polysaccharide PPV23 (Pneumovax) 11/03/2015,02/09/2006 Seasonal [...] No 12/12/2023 documented as of this encounter Plan of Treatment Upcoming Encounters Date Type Department Care Team (Latest Contact Info) Description 02/22/2024 7:59 AM EDT Hospital Encounter OR [facility], Operating Room, [facility] - 4th Floor [address] [place] [address] Marcela Del Valle MD [address] [facility] [place] [address] 02/22/2024 7:59 AM EDT - 02/22/2024 8:49 AM EDT Surgery OR [facility], Operating Room, [facility] - 4th Floor [address] [place] [address] Marcela Del Valle MD [address] [place] [address] COLONOSCOPY FLEXIBLE PROXIMAL DIAGNOSTIC 03/03/2024 9:40 AM EDT Office Visit [place] [address] [place] [address] [facility] [address] [place] [address] 05/08/2024 11:40 AM EDT Office Visit [place] [address] [place] [address] Velasquez Valencia MD [address] [place] [address] Scheduled Procedures Name Priority Associated Diagnoses Date/Ti [...] this encounter Medical Devices Implanted Type Area Switchboard Operator Supervisor Device Identifier Shelf Expiration Date Model / Serial / Lot Suture [place] Dbl Load 4.75mm - [id number] Implanted:Qty: 1 on 12/01/2019 by Judith Condon, DO at OR [facility] Right: Shoulder [employer] 07/17/2021 AR-2324BCT -2 / / [id number] Suture [place] Dbl Load 5.5mm - [id number] Implanted:Qty: 1 on 12/01/2019 by Judith Condon, DO at OR [facility] Right: Shoulder [employer] 09/16/2021 AR-2323BCT -2 / / [id number] documented as of this encounter Advance Directives [...] the patient have Health Care Power of Solid Plasterer? No Care Teams Assistant Fitness Manager Relationship Specialty Start Date End Date Velasquez Valencia MD [address] [place] [address] PCP - General Family Medicine 09/09/22 documented as of this encounter
--- OUTSIDE RECORDS SUMMARY | 2024-07-14 04:56 | External Medical Summary | Summary of Care ---
Author Name Unknown Organization [facility] Address [address] [place] [facility] [place] [address] Phone [phone] Care Team Providers Care Senior Training Specialist Name Role Phone Velasquez Valencia MD Primary Care Provider +1- [phone] Encounter Details Date Type Department Care Team (Late st Contact Info) Description 02/11/2024 Orders Only [facility] [address] [place] [address] Velasquez Valencia MD [address] [place] [address] Allergies Active Allergy Reactions Criticality Noted Date Comments Cefaclor Unknown 07/26/2018 As child Empagliflozin Other (Please comment) 05/16/2021 DKA with hospitalization Nsaids High 04/19/2019 Gastric problems Other Reaction(s): gastroparesis, kidney problems, use with caution : hx esophagus damage documented as of this encounter (statuses as of 02/11/2024) Medications Medication Sig Dispensed Refills Start Date [...] of less than 7.0% ([facility]) Take 2 Tablets by mouth in [...] as of this encounter (statuses as of 02/11/2024) Active Problems Problem Noted Date Diagnosed Date [...] as of this encounter (statuses as of 02/11/2024) Resolved Problems Problem Noted Date Diagnosed Date [...] as of this encounter (statuses as of 02/11/2024) Immunizations Name Administration Dates Next Due COVID-19 mRNA, LNP-s, No Pre serve, 2-Dose Series (PrimeRevenue) 10/21/2021,03/01/2021,02/07/2021 H1N1 2009 Influenza, IM 11/04/2009 Pneumococcal Conjugate Vacci ne, 20-valent ([id number]) 07/09/2023 Pneumococcal Polysaccharide PPV23 (Pneumovax) 11/03/2015,02/09/2006 Seasonal [...] Description 02/16/2024 11:20 AM EDT Office Visit [facility] [place] [address] [place] [address] [place], [facility] [address] [place] [address] 02/22/2024 9:17 AM EDT Hospital Encounter OR [facility], Operating Room, [facility] - 4th Floor [address] [place] [address] Marcela Del Valle MD [address] [place] [address] 02/22/2024 9:17 AM EDT - 02/22/2024 10:07 AM EDT Surgery OR [facility], Operating Room, [facility] - 4th Floor [address] [place] [address] Marcela Del Valle MD [address] [place] [address] COLONOSCOPY FLEXIBLE PROXIMAL DIAGNOSTIC 05/08/2024 11:40 AM EDT Office Visit [facility] [address] [place] [address] Velasquez Valencia MD [address] [place] [address] Scheduled Procedures Name Priority Associated Diagnoses Date/Ti [...] of 3 - 19+ 3-dose series) 1992 COVID-19 Vaccine ( season) 2023 10/21/2021, 03/01/2021, 02/07/2021 DISCUSS TOBACCO CESSATION (REFER TO SMARTSET #8679) 10/16/2023 10/16/2022 Zoster Vaccines (1 of 2) [...] IN PAST YEAR FOR COPD 02/09/2025 02/10/2024 COLONOSCOPY-EVERY 5 YRS AGES 18-100 04/15/2028 04/15/2023, 04/18/2015 DTaP,Tdap,and Td Vaccines (2 - Td or Tdap) 05/01/2028 05/01/2018 Lipid Panel 12/13/2028 12/13/2023, 12/17, 09/01/2021, Additional history exists Influenza Vaccine (FLU shot) Completed , 10/16/2022, 07/31/2021, Additional history exists Pneumococcal Vaccine: Pediatrics (0 to 5 Years) and At-Risk Patients (6 to 64 Years) Completed 07/09/2023, 11/03/2015, 02/09/2006 Lung Cancer Screening Completed 09/19/2023 , 12/15/2022, 10/27/2017, Additional history exists GARDASIL-HPV IMMUNIZATION SERIES Aged Out No longer eligible based on patient's age to complete this topic MENINGOCOCCAL (MENACTRA/MENVEO) Aged Out No longer eligible based on patient's age to complete this topic documented as of this encounter Medical Devices Implanted Type Area Internet Merchant Device Identifier Shelf Expiration Date Model / Serial / Lot Suture [place] Dbl Load 4.75mm - [id number] Implanted:Qty: 1 on 12/01/2019 by Judith Condon DO at OR [facility] Right: Shoulder [employer] 07/17/2021 AR-2324BCT -2 / / [id number] Suture [place] Dbl Load 5.5mm - [id number] Implanted:Qty: 1 on 12/01/2019 by Judith Condon DO at OR [facility] Right: Shoulder [employer] 09/16/2021 AR-2323BCT -2 / / [id number] documented as of this encounter Procedures Procedure Name Priority Date/Time Associated Diagnosis Comments CHEMISTRY-OUTSIDE Routine 02/07/2024 documented in this encounter Results * (ABNORMAL) CHEMISTRY-OUTSIDE (02/07/2024) Not all results display below - see scan for full detail OUTSIDE LAB (SEE SCANNED REPORT) Comment:[facility] INCLUDES: [facility] - CBC, UA, GLUCOSE POC CREATININE-OUTSID E LAB 0.98 0.70 - 1.30 MG/DL OUTSIDE LAB (SEE SCANNED REPORT) EGFR-OUTSIDE LAB OUT SIDE LAB (SEE SCANNED REPORT) POTASSIUM-OUTSIDE LAB 4.7 3.5 - 5.1 MMOL/L OUTSIDE LAB (SEE SCANNED REPORT) GLUCOSE-OUTSIDE LAB 393(A) 70 - 99 MG/DL OUTSIDE LAB (SEE SCANNED REPORT) HOURS FASTING OUTSID E LAB (SEE SCANNED REPORT) TRIGLYCERIDES-OUT SIDE LAB OUTSIDE LAB (SEE SCANNED REPORT) CHOLESTEROL-OUTSI DE LAB OUTSIDE LAB (SEE SCANNED REPORT) HDL-OUTSIDE LAB OUTS NANCI LAB (SEE SCANNED REPORT) CHOL/HDL RATIO-OUTSIDE LAB OUTSIDE LA B (SEE SCANNED REPORT) LDL (CALCULATED)-OUTS NANCI LAB OUTSIDE LAB (SEE SCANNED REPORT) LDL (DIRECT MEASURE)-OUTSIDE LAB OUTSIDE LAB (SEE SCANNED REPORT) HEMOGLOBIN, [id number] LAB OUTSIDE LAB (SEE SCANNED REPORT) PHOSPHORUS-OUTSID E LAB OUTSIDE LAB (SEE SCANNED REPORT) PTH-OUTSIDE LAB OUTS NANCI LAB (SEE SCANNED REPORT) MICROALBUMIN RATIO-OUTSIDE LAB OUTSIDE LA B (SEE SCANNED REPORT) PROTEIN, UA-OUTSIDE LAB OUTSIDE LAB (SEE SCANNED REPORT) HGB 10.6(A) 13.7 - 17.5 G/DL OUTSIDE LAB (SEE SCANNED REPORT) 02/07/2024 Radha Haney MD LABORATORY OUTSIDE LAB (SEE SCANNED REPORT) documented in this encounter Advance Directives Latest [...] the patient have Health Care Power of Paint Specialist? No Care Teams Senior Training Specialist Relationship Specialty Start Date End Date Velasquez Valencia MD [address] [place] [address] PCP - General Family Medicine 09/09/22 documented as of this encounter
--- OUTSIDE RECORDS SUMMARY | 2024-07-14 04:56 | External Medical Summary ---
Author Name Unknown Address Unknown Organization K01:LABORATORY [facility] - [facility] [address] [facility] [address] [facility] [address] Laboratory Report Ordering Provider Test Date Status CHRIST DUFFY 02/11/2024 10:28:01 Final Observation Date Value Abnormality Reference (Units ) Status WBC, Total 02/11/2024 10:28:01 8.36 4.00-10.80 (K/uL) Final RBC 02/11/2024 10:28:01 4.08 4.50-5.25 (M/uL) Final Hemoglobin 02/11/2024 10:28:01 10.8 Below low normal 14.0-16.8 (g/dL) Final HCT 02/11/2024 10:28:01 35.3 Below low normal 40.0-48.4 (%) Final MCV 02/11/2024 10:28:01 86.5 82.0-99.5 (fL) Final MCH 02/11/2024 10:28:01 26.5 27.0-34.0 (pg) Final MCHC 02/11/2024 10:28:01 30.6 32.0-36.0 (g/dL) Final RDW 02/11/2024 10:28:01 14.5 11.5-15.5 (%) Final Platelets 02/11/2024 10:28:01 338 140-400 (K/uL) Final MPV 02/11/2024 10:28:01 9.4 6.6-11.1 (fL) Final Nucleated erythrocytes/100 leukocytes [Ratio] in Blood by Automated count 02/11/2024 10:28:01 0 <=0 (/100 WBCs) Final Performing Location LABORATORY [facility] - [address] [place] [address]
--- OUTSIDE RECORDS SUMMARY | 2024-07-14 04:56 | External Medical Summary | Summary of Care ---
Author Name Unknown Organization [facility] Address [address] [facility] [place] [address] Phone [phone] Care Team Providers Care Camera Person Name Role Phone Velasquez Valencia MD Primary Care Provider +1- [phone] Encounter Details Date Type Department Care Team (Late st Contact Info) Description 02/08/2024 Population Health External Data Unspecified Department Allergies Active Allergy Reactions Criticality Noted Date Comments Cefaclor Unknown 07/26/2018 As child Empagliflozin Other (Please comment) 05/16/2021 DKA with hospitalization Nsaids High 04/19/2019 Gastric problems Other Reaction(s): gastroparesis, kidney problems, use with caution : hx esophagus damage documented as of this encounter (statuses as of 02/08/2024) Medications Medication Sig Dispensed Refills Start Date [...] than 7.0% ([facility]) Use to inject insulin 5 times daily 500 Each 3 01/19/2024 Active Insulin Aspart FlexPen 100 UNIT/ML Subcutaneous Solution Pen-injectorIndica tions:Type 2 diabetes mellitus with hemoglobin A1c goal of less than 7.0% ([facility]) inject 22 units subcutaneously three times a day with meals 75 mL 4 01/19/2024 Active traMADol HCl 50 MG Oral Tablet (Ultram)Indication s:Abdominal pain, epigastric Take 1 Tablet by mouth every 6 hours as needed for Pain, Severe. 40 Tablet 0 01/20/2024 Active Cyclobenzaprine HCl 10 MG Oral Tablet (Flexeril)Indicati ons:Lumbar disc herniation TAKE 1 TABLET BY MOUTH AT BEDTIME ONLY NEEDED 30 Tablet 0 01/25/2024 Active Pioglitazone HCl 30 MG Oral Tablet (Actos)Indications :Type 2 diabetes mellitus with hemoglobin A1c goal of less than 7.0% ([facility]) Take 1 Tablet by mouth in the morning. Dose increase. 90 Tablet 0 02/07/2024 Active documented as of this encounter (statuses as of 02/08/2024) Active Problems Problem Noted Date Diagnosed Date [...] as of this encounter (statuses as of 02/08/2024) Resolved Problems Problem Noted Date Diagnosed Date [...] as of this encounter (statuses as of 02/08/2024) Immunizations Name Administration Dates Next Due COVID-19 mRNA, LNP-s, No Pre serve, 2-Dose Series (Pfizer) 10/21/2021,03/01/2021,02/07/2021 H1N1 2009 Influenza, IM 11/04/2009 Pneumococcal Conjugate Vacci ne, 20-valent ([id number]) 07/09/2023 Pneumococcal Polysaccharide PPV23 (Pneumovax) 11/03/2015,02/09/2006 Seasonal [...] Department Care Team (Latest Contact Info) Description 02/09/2024 10:45 AM EDT Imaging Radiology [facility] [address] [place] [address] 02/10/2024 3:40 PM EDT Office Visit [address] [place] [phone] Velasquez Valencia [facility] [address] [facility] [address] 02/16/2024 11:20 AM EDT Office Visit [facility] [address] [facility] [address] [facility] [address] [facility] [address] 02/22/2024 9:17 AM EDT Hospital Encounter OR [facility], Operating Room, [facility] - 4th Floor [address] [place] [address] Marcela Del Valle MD [address] [place] [address] 02/22/2024 9:17 AM EDT - 02/22/2024 10:07 AM EDT Surgery OR [facility], Operating Room, [facility] - 4th Floor [address] [place] [address] Marcela Del Valle MD [address] [facility] [place] [address] COLONOSCOPY FLEXIBLE PROXIMAL DIAGNOSTIC 05/08/2024 11:40 AM EDT Office Visit [facility] [address] [facility] [phone] Velasquez Valencia MD [address] [facility] [address] Scheduled Procedures Name Priority Associated Diagnoses Date/Ti [...] - 19+ 3-dose series) 1992 COVID-19 Vaccine (2022- season) 2023 10/21/2021, 03/01/2021, 02/07/2021 DISCUSS TOBACCO CESSATION (REFER TO SMARTSET #2205) 10/16/2023 10/16/2022 Zoster Vaccines (1 of 2) 2023 Diabetic Foot Exam 07/09/2024 07/09/2023, 0 03/07/2021, 11/27/2019, Additional history exists HbA1c 07/16/2024 01/14/2024, 11/19, 10/27/2023, Additional history exists Diabetic Eye Exam 07/28/2024 07/28/2023, , 07/22/2023, Additional history exists GFR 12/21/2024 12/22/2023, 11/19, 12/13/2023, Additional history exists Albumin/Creatinine Ratio 01/13/2025 024, 01/05/2023, 09/01/2021, Additional history exists Depression Screening 01/13/2025 01/14/2024 O2 ASSESSMENT COMPLETED IN PAST YEAR FOR COPD 01/18/2025 01/19/2024 COLONOSCOPY-EVERY 5 YRS AGES 18-100 04/15/2028 04/15/2023, [...] this encounter Medical Devices Implanted Type Area Mirror Silverer Device Identifier Shelf Expiration Date Model / Serial / Lot Suture [place] Dbl Load 4.75mm - [id number] Implanted:Qty: 1 on 12/01/2019 by Judith Condon DO at OR [facility] Right: Shoulder [employer] 07/17/2021 AR-2324BCT -2 / / [id number] Suture [place] Dbl Load 5.5mm - [id number] Implanted:Qty: 1 on 12/01/2019 by Judith Condon DO at OR [facility] Right: Shoulder [employer] 09/16/2021 AR-2323BCT -2 / / [id number] documented as of this encounter Advance Directives [...] the patient have Health Care Power of Manager Trust? No Care Teams Camera Person Relationship Specialty Start Date End Date Velasquez Valencia MD [address] [place] [address] PCP - General Family Medicine 09/09/22 documented as of this encounter
--- OUTSIDE RECORDS SUMMARY | 2024-07-14 04:56 | External Medical Summary | Summary of Care ---
Author Name Unknown Organization [facility] Address [address] [place] [place] [place] [address] Phone [phone] Care Team Providers Care Multicultural Services Librarian Name Role Phone Velasquez Valencia MD Primary Care Provider +1- [phone] Encounter Details Date Type Department Care Team (Late st Contact Info) Description 02/11/2024 Orders Only [facility] [address] [place] [address] Velasquez Valencia MD [address] [place] [address] Allergies Active Allergy Reactions Criticality [...] goal of less than 7.0% ([facility]) Take 2 Tablets by mouth in [...] mRNA, LNP-s, No Pre serve, 2-Dose Series (Axeda) 10/21/2021,03/01/2021,02/07/2021 H1N1 2009 Influenza, IM 11/04/2009 Pneumococcal Conjugate Vacci ne, 20-valent ([id number]) 07/09/2023 Pneumococcal Polysaccharide PPV23 (Pneumovax) 11/03/2015,02/09/2006 Seasonal [...] Description 02/16/2024 11:20 AM EDT Office Visit [facility] [place] [address] [place] [address] [place], [facility] [address] [place] [address] 02/22/2024 9:17 AM EDT Hospital Encounter OR [facility], Operating Room, [facility] - 4th Floor [address] [place] [address] Marcela Del Valle MD [address] [facility] [place] [address] 02/22/2024 9:17 AM EDT - 02/22/2024 10:07 AM EDT Surgery OR [facility], Operating Room, [facility] - 4th Floor [address] [place] [address] Marcela Del Valle MD [address] [place] [address] COLONOSCOPY FLEXIBLE PROXIMAL DIAGNOSTIC 05/08/2024 11:40 AM EDT Office Visit [facility] [address] [place] [address] Velasquez Valencia MD [address] [place] [address] Scheduled Procedures Name Priority Associated Diagnoses Date/Ti [...] 02/07/2021 DISCUSS TOBACCO CESSATION (REFER TO SMARTSET #9255) 10/16/2023 10/16/2022 Zoster Vaccines (1 of 2) [...] this encounter Medical Devices Implanted Type Area Tool Mechanic Device Identifier Shelf Expiration Date Model / Serial / Lot Suture [place] Dbl Load 4.75mm - [id number] Implanted:Qty: 1 on 12/01/2019 by Judith Condon DO at OR [facility] Right: Shoulder [employer] 07/17/2021 AR-2324BCT -2 / / [id number] Suture [place] Dbl Load 5.5mm - [id number] Implanted:Qty: 1 on 12/01/2019 by Judith Condon DO at OR [facility] Right: Shoulder [employer] 09/16/2021 AR-2323BCT -2 / / [id number] documented as of this encounter Procedures Procedure Name Priority Date/Time Associated Diagnosis Comments GLUCOSE Routine 02/05/2024 documented in this encounter Results * (ABNORMAL) GLUCOSE (02/05/2024) GLUCOSE-OUTSID E LAB 339(A) 70 - 99 MG/DL OUTSIDE LAB (SEE SCANNED REPORT) Comment:POC GLUCOSE Blood Venous blood specimen / Unknown 02/05/2024 History Per Patient LAB BLOOD ORDERABLES OUTSIDE LAB (SEE SCANNED REPORT) documented in [...] the patient have Health Care Power of Branch Or Department Chief Librarian? No Care Teams Multicultural Services Librarian Relationship Specialty Start Date End Date Velasquez Valencia MD [address] [place] [address] PCP - General Family Medicine 09/09/22 documented as of this encounter
--- OUTSIDE RECORDS SUMMARY | 2024-07-14 04:56 | External Medical Summary | Summary of Care ---
Author Name Unknown Organization [facility] Address [address] [facility] [place] [place] [address] Phone [phone] Care Team Providers Care Manifold Builder Name Role Phone Velasquez Valencia MD Primary Care Provider +1- [phone] Reason for Visit * Reason Comments Outpatient Testing Encounter Details Date Type Department Care Team (Late st Contact Info) Description 02/11/2024 10:30 AM EDT Laboratory Laboratory, [place] [address] [place] [address] [place], Laboratory [address] [place] [address] Abdominal pain, epigastric Allergies Active [...] mRNA, LNP-s, No Pre serve, 2-Dose Series (DataRobot) 10/21/2021,03/01/2021,02/07/2021 H1N1 2009 Influenza, IM 11/04/2009 Pneumococcal Conjugate Vacci ne, 20-valent ([id number]) 07/09/2023 Pneumococcal Polysaccharide PPV23 (Pneumovax) 11/03/2015,02/09/2006 Seasonal [...] 02/16/2024 11:20 AM EDT Office Visit Pharmacy, [place] [address] [place] [address] [place], [facility] [address] [place] [address] 02/22/2024 9:17 AM EDT Hospital Encounter OR [facility], Operating Room, [facility] - 4th Floor [address] [facility] [place] [address] Marcela Del Valle MD [facility] [place] [address] 02/22/2024 9:17 AM EDT - 02/22/2024 10:07 AM EDT Surgery OR [facility], Operating Room, [facility] - 4th Floor [address] [facility] [place] [address] Marcela Del Valle MD [address] [place] [address] COLONOSCOPY FLEXIBLE PROXIMAL DIAGNOSTIC 05/08/2024 11:40 AM EDT Office Visit [facility] [address] [place] [address] Velasquez Valencia MD [address] [place] [address] Pending Results Name Type Priority Associated Diagnoses Date /Time LIPASE Lab Routine Abdominal pain, epigastric 02/11/2024 10:28 AM EDT CBC Lab Routine Abdominal pain, epigastric 02/11/2024 10:28 AM EDT Scheduled Procedures Name Priority Associated Diagnoses [...] 19+ 3-dose series) 1992 COVID-19 Vaccine ( - 2022- season) 2023 10/21/2021, 03/01/2021, 02/07/2021 DISCUSS TOBACCO CESSATION (REFER TO SMARTSET #7694) 10/16/2023 10/16/2022 Zoster Vaccines (1 of 2) [...] this encounter Medical Devices Implanted Type Area Weigher And Mixer Device Identifier Shelf Expiration Date Model / Serial / Lot Suture [place] Dbl Load 4.75mm - [id number] Implanted:Qty: 1 on 12/01/2019 by Judith Condon DO at OR [facility] Right: Shoulder [employer] 07/17/2021 AR-2324BCT -2 / / [id number] Suture [place] Dbl Load 5.5mm - [id number] Implanted:Qty: 1 on 12/01/2019 by Judith Condon DO at OR [facility] Right: Shoulder [employer] 09/16/2021 AR-2323BCT -2 / / [id number] documented as of this encounter Visit Diagnoses Diagnosis Abdominal pain, epigastric Screening for colon cancer Special screening for [...] the patient have Health Care Power of Roller Shop Utility Worker? No Care Teams Manifold Builder Relationship Specialty Start Date End Date Velasquez Valencia MD [address] [place] [address] PCP - General Family Medicine 09/09/22 documented as of this encounter
--- OUTSIDE RECORDS SUMMARY | 2024-07-14 04:56 | External Medical Summary | Summary of Care ---
Author Name Unknown Organization [facility] Address [address] [address] [address] Phone [phone] Care Team Providers Care It Technical Support Specialist Name Role Phone Velasquez Valencia MD Primary Care Provider +1- [phone] Encounter Details Date Type Department Care Team (Late st Contact Info) Description 02/04/2024 Result Scan Unspecified Department <No scans attached> Allergies Active Allergy Reactions Criticality Noted Date [...] less than 7.0% ([facility]) inject 22 units subcutaneously three times a [...] ONLY NEEDED 30 Tablet 0 01/25/2024 Active documented as of this encounter (statuses [...] IM 11/04/2009 Pneumococcal Conjugate Vacci ne, 20-valent ([id number]) 07/09/2023 Pneumococcal Polysaccharide PPV23 (Pneumovax) 11/03/2015,02/09/2006 Seasonal [...] Description 02/09/2024 10:45 AM EDT Imaging Radiology [facility] 1st [facility] [place] [address] [facility] [place] [address] 02/10/2024 3:40 PM EDT Office Visit [facility] [address] [facility] [phone] Velasquez Valencia [facility] [address] [facility] [address] 02/16/2024 11:20 AM EDT Office Visit [facility] [place] [address] [place] [address] [place] [facility] [address] [place] [address] 02/22/2024 9:17 AM EDT Hospital Encounter OR [facility], Operating Room, [facility] - 4th Floor [address] [place] [address] Marcela Del Valle MD [facility] [place] [address] 02/22/2024 9:17 AM EDT - 02/22/2024 10:07 AM EDT Surgery OR [facility], Operating Room, [facility] - 4th Floor [address] [place] [address] Marcela Del Valle MD [address] [place] [address] COLONOSCOPY FLEXIBLE PROXIMAL DIAGNOSTIC 05/08/2024 11:40 AM EDT Office Visit [place] [address] [place] [address] Velasquez Valencia MD [address] [place] [address] Scheduled Procedures Name Priority Associated Diagnoses Date/Ti [...] 02/07/2021 DISCUSS TOBACCO CESSATION (REFER TO SMARTSET #3158) 10/16/2023 10/16/2022 Zoster Vaccines (1 of 2) [...] this encounter Medical Devices Implanted Type Area Sample Builder Device Identifier Shelf Expiration Date Model / Serial / Lot Suture [place] Dbl Load 4.75mm - [id number] Implanted:Qty: 1 on 12/01/2019 by Judith Condon DO at OR [facility] Right: Shoulder [employer] 07/17/2021 AR-2324BCT -2 / / [id number] Suture [place] Dbl Load 5.5mm - [id number] Implanted:Qty: 1 on 12/01/2019 by Judith Condon DO at OR [facility] Right: Shoulder [employer] 09/16/2021 AR-2323BCT -2 / / [id number] documented as of this encounter Procedures Procedure Name Priority Date/Time Associated Diagnosis Comments OUTSIDE LAB RESULTS 02/04/2024 documented in this encounter Results * OUTSIDE LAB RESULTS (02/04/2024) 02/04/2024 No Physician Data Unknown LABORATORY documented in this encounter Advance Directives Latest [...] the patient have Health Care Power of Track Service Worker? No Care Teams It Technical Support Specialist Relationship Specialty Start Date End Date Velasquez Valencia MD [address] [place] [address] PCP - General Family Medicine 09/09/22 documented as of this encounter
--- OUTSIDE RECORDS SUMMARY | 2024-07-14 04:56 | External Medical Summary | Summary of Care ---
Author Name Unknown Organization [facility] Address [address] [facility] [place] [address] Phone [phone] Care Team Providers Care Wrapper Dipper Name Role Phone Velasquez Valencia MD Primary Care Provider +1- [phone] Encounter Details Date Type Department Care Team (Late st Contact Info) Description 02/09/2024 Population Health External Data Unspecified Department Allergies Active Allergy Reactions Criticality Noted Date Comments Cefaclor Unknown 07/26/2018 As child Empagliflozin Other (Please comment) 05/16/2021 DKA with hospitalization Nsaids High 04/19/2019 Gastric problems Other Reaction(s): gastroparesis, kidney problems, use with caution : hx esophagus damage documented as of this encounter (statuses as of 02/09/2024) Medications Medication Sig Dispensed Refills Start Date [...] than 7.0% ([facility]) Use to inject insulin 5 times daily 500 Each 3 01/19/2024 Active Insulin Aspart FlexPen 100 UNIT/ML Subcutaneous Solution Pen-injectorIndica tions:Type 2 diabetes mellitus with hemoglobin A1c goal of less than 7.0% ([facility]) inject 22 units subcutaneously three times a [...] less than 7.0% ([facility]) Take 1 Tablet by mouth in the morning. Dose increase. 90 Tablet 0 02/07/2024 Active documented as of this encounter (statuses as of 02/09/2024) Active Problems Problem Noted Date Diagnosed Date [...] as of this encounter (statuses as of 02/09/2024) Resolved Problems Problem Noted Date Diagnosed Date [...] as of this encounter (statuses as of 02/09/2024) Immunizations Name Administration Dates Next Due COVID-19 mRNA, LNP-s, No Pre serve, 2-Dose Series (Pfizer) 10/21/2021,03/01/2021,02/07/2021 H1N1 2009 Influenza, IM 11/04/2009 Pneumococcal Conjugate Vacci ne, 20-valent ([id number]) 07/09/2023 Pneumococcal Polysaccharide PPV23 (Pneumovax) 11/03/2015,02/09/2006 Seasonal [...] Description 02/09/2024 10:45 AM EDT Imaging Radiology [facility] [address] [place] [address] 02/10/2024 3:40 PM EDT Office Visit [address] [place] [phone] Velasquez Valencia MD [address] [facility] [address] 02/16/2024 11:20 AM EDT Office Visit [facility] [address] [facility] [address] [facility] [address] [facility] [address] 02/22/2024 9:17 AM EDT Hospital Encounter OR [facility], Operating Room, [facility] - 4th Floor [address] [place] [address] Marcela Del Valle MD [address] [place] [address] 02/22/2024 9:17 AM EDT - 02/22/2024 10:07 AM EDT Surgery OR [facility], Operating Room, [facility] - 4th Floor [address] [place] [address] Marcela Del Valle MD [address] [facility] [place] [address] COLONOSCOPY FLEXIBLE PROXIMAL DIAGNOSTIC 05/08/2024 11:40 AM EDT Office Visit [facility] [address] [facility] [phone] Velasquez Valencia MD [address] [facility] [address] Scheduled Procedures Name Priority Associated Diagnoses Date/Ti [...] 02/07/2021 DISCUSS TOBACCO CESSATION (REFER TO SMARTSET #7091) 10/16/2023 10/16/2022 Zoster Vaccines (1 of 2) [...] this encounter Medical Devices Implanted Type Area Health Worker Device Identifier Shelf Expiration Date Model / Serial / Lot Suture [place] Dbl Load 4.75mm - [id number] Implanted:Qty: 1 on 12/01/2019 by Judith Condon DO at OR [facility] Right: Shoulder [employer] 07/17/2021 AR-2324BCT -2 / / [id number] Suture [place] Dbl Load 5.5mm - [id number] Implanted:Qty: 1 on 12/01/2019 by Judith Condon DO at OR [facility] Right: Shoulder [employer] 09/16/2021 AR-2323BCT -2 / / [id number] documented as of this encounter Advance Directives [...] the patient have Health Care Power of Pace Analyst? No Care Teams Wrapper Dipper Relationship Specialty Start Date End Date Velasquez Valencia MD [address] [place] [address] PCP - General Family Medicine 09/09/22 documented as of this encounter
--- OUTSIDE RECORDS SUMMARY | 2024-07-14 04:56 | External Medical Summary ---
Author Name Unknown Address Unknown Organization K01:LABORATORY [facility] - [address] [place] [address] Laboratory Report Ordering Provider Test Date Status CHRIST DUFFY 02/11/2024 10:28:01 Final Observation Date Value Abnormality Reference (Units ) Status Lipase 02/11/2024 10:28:01 25 13-60 (U/L ) Final Performing Location LABORATORY [facility] - [address] [place] [address]
--- OUTSIDE RECORDS SUMMARY | 2024-07-14 04:56 | External Medical Summary | Summary of Care ---
Author Name Unknown Organization [facility] Address [address] [facility] [address] Phone [phone] Care Team Providers Care Reforestation Worker Name Role Phone Velasquez Valencia MD Primary Care Provider +1- [phone] Reason for Visit * Reason Comments Dosage Adjustment In Person (Anticoag Cl inic) Diabetes Follow-Up Encounter Details Date Type Department Care Team (Late st Contact Info) Description 02/07/2024 3:20 PM EDT Telemedicine Pharmacy, [place] [address] [place] [address] [facility] [address] [place] [address] Type 2 diabetes mellitus with hemoglobin A1c goal of less than 7.0% ([facility])* Allergies Active Allergy Reactions Criticality Noted Date Comments Cefaclor Unknown 07/26/2018 As child Empagliflozin Other (Please comment) 05/16/2021 DKA with hospitalization Nsaids High 04/19/2019 Gastric problems Other Reaction(s): gastroparesis, kidney problems, use with caution : hx esophagus damage documented as of this encounter (statuses as of 02/07/2024) Medications Medication Sig Dispensed Refills Start Date [...] for Nausea. 20 Tablet 0 4 Active Sennosides-Docus ate Sodium 8.6-50 MG Oral Tablet (Senokot-S) Take 1 Tablet by mouth in the morning. 30 Tablet 0 4 Active Spironolactone 25 MG Oral Tablet (Aldactone) Take 1 Tablet by mouth in the morning. 90 Tablet 3 4 Active Aspirin 81 MG Oral Tablet Delayed Release Take 1 Tablet by mouth in the morning. 90 Tablet 3 4 Active Fluticasone-Salm eterol 115-21 MCG/ACT Inhalation Aerosol (Advair HFA) Inhale 2 Puffs by mouth in the morning and 2 Puffs before bedtime. 12 g 12 4 Active Movantik 25 MG Oral Tablet (Naloxegol Oxalate) take 1 tablet by mouth in the morning 30 Tablet 1 4 Active Metoprolol Succinate ER 100 MG [...] a day with meals 75 mL 4 4 Active traMADol HCl 50 MG Oral Tablet (Ultram)Indicati ons:Abdominal pain, epigastric Take 1 Tablet by mouth every 6 hours as needed for Pain, Severe. 40 Tablet 0 4 Active Cyclobenzaprine HCl 10 MG Oral Tablet (Flexeril)Indica tions:Lumbar disc herniation TAKE 1 TABLET BY MOUTH AT BEDTIME ONLY NEEDED 30 Tablet 0 4 Active Pioglitazone HCl 30 MG Oral Tablet (Actos)Indicatio ns:Type 2 diabetes mellitus with hemoglobin A1c goal of less than 7.0% (HCC) Take 1 Tablet by mouth in the morning. Dose increase. 90 Tablet 0 4 Active Pioglitazone HCl 15 MG Oral Tablet (Actos)Indicatio ns:Type 2 diabetes mellitus with hemoglobin A1c goal of less than 7.0% (HCC) Take 1 Tablet by mouth in the morning. 90 Tablet 0 4 02/07/20 24 Discontinued documented as of this encounter (statuses as of 02/07/2024) Active Problems Problem Noted Date Diagnosed Date [...] as of this encounter (statuses as of 02/07/2024) Resolved Problems Problem Noted Date Diagnosed Date [...] as of this encounter (statuses as of 02/07/2024) Immunizations Name Administration Dates Next Due COVID-19 mRNA, LNP-s, No Pre serve, 2-Dose Series (HALKAR) 10/21/2021,03/01/2021,02/07/2021 H1N1 2009 Influenza, IM 11/04/2009 Pneumococcal Conjugate Vacci ne, 20-valent ([id number]) 07/09/2023 Pneumococcal Polysaccharide PPV23 (Pneumovax) 11/03/2015,02/09/2006 Seasonal [...] Gisel Butler, [facility] - 02/07/2024 3:14 PM EDT Images from the original note were not included. Patient location: ED. I was in a different facility from the patient. After connecting through televideo, patient was identified by name and date of and/or wristband checked. 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 My office door was closed. No one else was in the room with me. Patient acknowledged consent and understanding of privacy and security of the Telemedicine visit, and gave permission to have a telemedicine presenter stay in the room in order to assist with the history and to conduct the exam as needed. I informed the patient that I have reviewed their record in [facility] and presented the opportunity for them to ask any questions regarding the visit today. The patientagreed to participate. I communicated with the patient for 7 minutes via televideo. Medication Therapy [facility] - Diabetes Management Progress Note Bry Akhtar Jr., identified by name and date of , is a 48 year old male being seen for diabetes management/education. Patient presents for return diabetic visit. DIABETES: Current diabetic medications: Metformin HCL 500mg, 2 tabs BID STOP Lantus 40 units AM and 40 units PM START Toujeo U300 40 units in AM and 40 units in PM INC Novolog 22 units with meals START Pioglitazone 15 mg daily eGFR> 90 mL/min as of 12/22/23 Medication Injection Site: Abdomen Lifestyle: Diet: unchanged Glucose Review/SMBG: Readings obtained from patient device Hypoglycemia: Does your blood sugar go below 70 mg/dL? No Hyperglycemia symptoms present: None reported, but patient was currently in the ED after being sent there from his follow up surgery appointment when his sugar was in the 400s Recent Labs Units 01/14/24 1059 12/13/23 0439 10/27/23 1138 HEMOGLOBIN A1C - [facility] % 10.2* 10.1* 8.7* Recent Labs Units 12/22/23 1148 12/14/23 0553 12/13/23 0439 ESTIMATED GLOMERULAR FILTRATION RATE - [facility] mL/min >90 >90 >90 CREATININE - [facility] mg/dL 0.8 0.8 0.8 HYPERTENSION: Patient on ACEi/ARB: yes BP Readings from Last 3 Encounters: 01/19/24 122/68 01/14/24 128/62 01/05/24 132/68 Blood pressure at goal: yes HYPERLIPIDEMIA: Patient is taking moderate or high intensity statin: yes HEALTH MAINTENANCE REVIEW: Health Maintenance Due Topic Date Due HIV Screening Never done Alpha-1 Antitrypsin Never done Hepatitis C Screening Never done Hepatitis B (1 of 3 - 19+ 3-dose series) Never done COVID-19 Vaccine (2022- season) 2023 DISCUSS TOBACCO CESSATION (REFER TO SMARTSET #5856) 10/16/2023 Zoster Vaccines (1 of 2) Never done ASSESSMENT & PLAN: ICD-10-CM 1. Type 2 diabetes mellitus with hemoglobin A1c goal of less than 7.0% (HCC) E11.9 Considerations: - Jardiance caused DKA - hx of acute pancreatitis 12/14/23- avoiding GLPs and GIPs BG Readings - Blood sugars uncontrolled. Rising most prominently with first meal of the day. Steep decline overnight. No low blood sugars. It is imperative that patient has improved BG control considering he is trying to heal from foot/ankle surgery. Medications - Reviewed current regimen, patient is adherent to regimen. Tolerating well. Will increase novolog to better match this rise in sugars, and will increase actos. Steep decline overnight, so anticipate that once meal coverage is better corrected, we will need to decrease his toujeo dose. Diet, Exercise, Lifestyle - No significant lifestyle changes since last visit. Patient is agreeable to SMBG with Dexcom daily. Patient aware to contact clinic if any hypoglycemia before next visit. MEDICATION CHANGES: yes, see below; preferred pharmacy: [facility] ([facility]) Diabetic Medications: Metformin HCL 500mg, 2 tabs BID Toujeo U300 40 units in AM and 40 units in PM INC Novolog 30 units with breakfast, and 22 units with all other meals INC Pioglitazone 30 mg daily eGFR> 90 mL/min as of 12/22/23 FOLLOW UP: Return to clinic in 10 days 02/16/2024 Gisel Butler [facility] Clinical Pharmacist - Line Construction Engineer Medication Therapy Management Clinic 02/07/2024, 3:14 PM documented in this encounter Plan of Treatment Upcoming Encounters Date Type Department Care Team (Latest Contact Info) Description 02/09/2024 10:45 AM EDT Imaging Radiology [facility] 1st [facility], [address] [place] [address] 02/10/2024 3:40 PM EDT Office Visit Family [facility] [place] [address] [facility] [address] Velasquez Valencia MD [address] [place] [address] 02/16/2024 11:20 AM EDT Office Visit Pharmacy, [place] [address] [address] [facility] [address] [place], [facility] [address] [place] [facility] [place] [address] 02/22/2024 9:17 AM EDT Hospital Encounter OR [facility], Operating Room, [facility] - 4th Floor [address] [place] [address] Marcela Del Valle MD [address] [place] [address] 02/22/2024 9:17 AM EDT - 02/22/2024 10:07 AM EDT Surgery OR [facility], Operating Room, [facility] - 4th Floor [address] [place] [address] Marcela Del Valle MD [address] [place] [id number] COLONOSCOPY FLEXIBLE PROXIMAL DIAGNOSTIC 05/08/2024 11:40 AM EDT Office Visit [facility] [address] [place] [address] Velasquez Valencia MD [address] [place] [address] Scheduled Procedures Name Priority Associated [...] this encounter Medical Devices Implanted Type Area Sewer Line Photo Inspector Device Identifier Shelf Expiration Date Model / Serial / Lot Suture [place] Dbl Load 4.75mm - [id number] Implanted:Qty: 1 on 12/01/2019 by Judith Condon DO at OR [facility] Right: Shoulder [employer] 07/17/2021 AR-2324BCT -2 / / [id number] Suture [place] Dbl Load 5.5mm - [id number] Implanted:Qty: 1 on 12/01/2019 by Judith Condon DO at OR [facility] Right: Shoulder [employer] 09/16/2021 AR-2323BCT -2 / / [id number] documented as of this encounter Visit Diagnoses [...] the patient have Health Care Power of Actuarial Manager? No Care Teams Reforestation Worker Relationship Specialty Start Date End Date Velasquez Valencia MD [address] [place] [address] PCP - General Family Medicine 09/09/22 documented as of this encounter
--- OUTSIDE RECORDS SUMMARY | 2024-07-14 04:57 | External Medical Summary | Summary of Care ---
Author Name Unknown Organization [facility] Address [address] [place] [address] Phone [phone] Care Team Providers Care Pulp Operator Name Role Phone Velasquez Polo MD Primary Care Provider +1- [phone] Reason for Visit * Reason Comments eRx-Medication Refill Encounter Details Date Type Department Care Team (Late st Contact Info) Description 01/24/2024 Refill [facility] [address] [place] [address] Velasquez Polo MD [address] [place] [address] Lumbar disc herniation Allergies Active Allergy Reactions Criticality Noted Date Comments Cefaclor Unknown 07/26/2018 As child Empagliflozin Other (Please comment) 05/16/2021 DKA with hospitalization Nsaids High 04/19/2019 Gastric problems Other Reaction(s): gastroparesis, kidney problems, use with caution : hx esophagus damage documented as of this encounter (statuses as of 01/25/2024) Medications Medication Sig Dispensed Refills Start Date [...] A1c goal of less than 7.0% ([facility]) Take 2 Tablets by mouth in [...] Pain, Severe. 40 Tablet 0 01/20/2024 Active Pioglitazone HCl 15 MG Oral Tablet (Actos)Indications :Type 2 diabetes mellitus with hemoglobin A1c goal of less than 7.0% (HCC) Take 1 Tablet by mouth in the morning. 90 Tablet 0 01/19/2024 Active Cyclobenzaprine HCl 10 MG Oral Tablet (Flexeril)Indicati ons:Lumbar disc herniation TAKE 1 TABLET BY MOUTH AT BEDTIME ONLY NEEDED 30 Tablet 0 01/25/2024 Active documented as of this encounter (statuses as of 01/25/2024) Active Problems Problem Noted Date Diagnosed Date [...] as of this encounter (statuses as of 01/25/2024) Resolved Problems Problem Noted Date Diagnosed Date Resolved Date Acute pancreatitis 12/12/2023 Thrush 12/12/2023 01/14/2024 Sepsis 10/28/2023 01/14/2024 Positive D dimer 10/27/2023 10/30/2023 Lactic acidosis 10/27/2023 10/30/2023 Fracture of nasal bones, ini tial encounter [...] as of this encounter (statuses as of 01/25/2024) Immunizations Name Administration Dates Next Due COVID-19 mRNA, LNP-s, No Pre serve, 2-Dose Series ([employer]) 10/21/2021,03/01/2021,02/07/2021 H1N1 2009 Influenza, IM 11/04/2009 Pneumococcal Conjugate Vacci ne, 20-valent ([id number]) 07/09/2023 Pneumococcal Polysaccharide PPV23 (Pneumovax) 11/03/2015,02/09/2006 Seasonal [...] Telephone Encounter - Velasquez Polo MD - 01/25/2024 12:52 PM EDTSigned Prescriptions: Disp Refills Cyclobenzaprine HCl 10 MG Oral Tablet (Fle*30 Tab*0 Sig: TAKE 1 TABLET BY MOUTH AT BEDTIME ONLY NEEDEDAuthorizing Provider: VELASQUEZ POLO * Telephone Encounter - Radha Fair LPN - 01/25/2024 7:55 AM EDTPending Prescriptions: Disp Refills Cyclobenzaprine HCl 10 MG Oral Tablet [Pha*30 Tab*0 Sig: TAKE 1 TABLET BY MOUTH AT BEDTIME ONLY NEEDED * Telephone Encounter - Ashlee Teran - 01/25/2024 7:30 AM EDTPending Prescriptions: Disp Refills Cyclobenzaprine HCl 10 MG Oral Tablet [Pha*30 Tab*0 Sig: TAKE 1 TABLET BY MOUTH AT BEDTIME ONLY NEEDED documented in this encounter Plan of Treatment Upcoming Encounters Date Type Department Care Team (Latest Contact Info) Description 02/09/2024 10:45 AM EDT Imaging Radiology [facility] 1st [facility] [place] [address] [facility] [place] [address] 02/16/2024 11:20 AM EDT Office Visit [facility] [place] [address] [facility] [address] [facility] [address] [place] [address] 02/22/2024 9:17 AM EDT Hospital Encounter OR [facility], Operating Room, [facility] - 4th Floor [address] [place] [address] Marcela Del Valle MD [address] [facility] [place] [place] [address] 02/22/2024 9:17 AM EDT - 02/22/2024 10:07 AM EDT Surgery OR [facility], Operating Room, [facility] - 4th Floor [address] [place] [address] Marcela Del Valle MD [address] [place] [address] COLONOSCOPY FLEXIBLE PROXIMAL DIAGNOSTIC 05/08/2024 11:40 AM EDT Office Visit [facility] [address] [facility] [address] Velasquez Polo MD [address] [facility] [place] [place] [address] Scheduled Procedures Name Priority Associated Diagnoses Date/Ti [...] 02/07/2021 DISCUSS TOBACCO CESSATION (REFER TO SMARTSET #3279) 10/16/2023 10/16/2022 Zoster Vaccines (1 of 2) [...] to 64 Years) Completed 07/09/2023, 11/03/2015, 02/09/2006 LUNG CANCER SCREENING - USE SMARTSET 19550 Completed 09/19/2023, 12/15/2022, 10/27/2017, Additional history exists GARDASIL-HPV IMMUNIZATION SERIES Aged Out No longer eligible based on patient's age to complete this topic MENINGOCOCCAL (MENACTRA/MENVEO) Aged Out No longer eligible based on patient's age to complete this topic documented as of this encounter Medical Devices Implanted Type Area Can Tester Device Identifier Shelf Expiration Date Model / Serial / Lot Suture [place] Dbl Load 4.75mm - [id number] Implanted:Qty: 1 on 12/01/2019 by Judith Conodn, DO at OR [facility] Right: Shoulder [employer] 07/17/2021 AR-2324BCT -2 / / [id number] Suture [place] Dbl Load 5.5mm - [id number] Implanted:Qty: 1 on 12/01/2019 by Judith Condon, at OR [facility] Right: Shoulder [employer] 09/16/2021 AR-2323BCT -2 / / [id number] documented as of this encounter Visit Diagnoses [...] patient have Health Care Power of Data Technical Lead? No Care Teams Pulp Operator Relationship Specialty Start Date End Date Velasquez Polo MD [address] [place] [address] PCP - General Family Medicine 09/09/22 documented as of this encounter
--- OUTSIDE RECORDS SUMMARY | 2024-07-14 04:57 | External Medical Summary | Summary of Care ---
Author Name Unknown Organization [facility] Address [address] [place] [address] Phone [phone] Care Team Providers Care Cutter Finisher Name Role Phone Velasquez Valencia MD Primary Care Provider +1- [phone] Encounter Details Date Type Department Care Team (Late st Contact Info) Description 01/24/2024 Orders Only [place] [address] [place] [address] Velasquez Valencia MD [address] [place] [address] Allergies Active Allergy Reactions Criticality Noted Date Comments Cefaclor Unknown 07/26/2018 As child Empagliflozin Other (Please comment) 05/16/2021 DKA with hospitalization Nsaids High 04/19/2019 Gastric problems Other Reaction(s): gastroparesis, kidney problems, use with caution : hx esophagus damage documented as of this encounter (statuses as of 01/24/2024) Medications Medication Sig Dispensed Refills Start Date [...] the morning. 90 Tablet 0 01/19/2024 Active documented as of this encounter (statuses as of 01/24/2024) Active Problems Problem Noted Date Diagnosed Date [...] as of this encounter (statuses as of 01/24/2024) Resolved Problems Problem Noted Date Diagnosed Date [...] Overview: Per HTN Taxonomy. Diabetic polyneuropathy 04/12/2007 04/2016 Overview: ICD-10 update of inactive term [...] as of this encounter (statuses as of 01/24/2024) Immunizations Name Administration Dates Next Due COVID-19 mRNA, LNP-s, No Pre serve, 2-Dose Series (Pfizer) 10/21/2021,03/01/2021,02/07/2021 H1N1 2009 Influenza, IM 11/04/2009 Pneumococcal Conjugate Vacci ne, 20-valent ([id number]) 07/09/2023 Pneumococcal Polysaccharide PPV23 (Pneumovax) 11/03/2015,02/09/2006 Seasonal [...] Description 02/09/2024 10:45 AM EDT Imaging Radiology [facility] 1st [facility], [address] [place] [address] 02/16/2024 11:20 AM EDT Office Visit [facility] [place] [address] [place] [address] [facility] [address] [place] [address] 02/22/2024 9:17 AM EDT Hospital Encounter OR [facility], Operating Room, [facility] - 4th Floor [address] [facility] [place] [address] Marcela Del Valle MD [address] [place] [address] 02/22/2024 9:17 AM EDT - 02/22/2024 10:07 AM EDT Surgery OR [facility], Operating Room, [facility] - 4th Floor [address] [facility] [place] [address] Marcela Del Valle MD [address] [place] [address] COLONOSCOPY FLEXIBLE PROXIMAL DIAGNOSTIC 05/08/2024 11:40 AM EDT Office Visit [facility] [address] [place] [address] Velasquez Valencia MD [address] [place] [address] Scheduled Procedures Name Priority Associated Diagnoses Date/Ti [...] - 19+ 3-dose series) 1992 COVID-19 Vaccine (4 - 2023-24 season) 2023 10/21/2021, 03/01/2021, 02/07/2021 DISCUSS TOBACCO CESSATION (REFER TO SMARTSET #1649) 10/16/2023 10/16/2022 Zoster Vaccines (1 of 2) 2023 Diabetic Foot Exam 07/09/2024 07/09/2023, 0 03/07/2021, 11/27/2019, Additional history exists HbA1c 07/16/2024 01/14/2024, 11/19, 10/27/2023, Additional history exists GFR 12/21/2024 12/22/2023, 11/19, 12/13/2023, Additional history exists Albumin/Creatinine Ratio 01/13/2025 024, 01/05/2023, 09/01/2021, Additional history exists Depression Screening 01/13/2025 01/14/2024 O2 ASSESSMENT COMPLETED IN PAST YEAR FOR COPD 01/18/2025 01/19/2024 Diabetic Eye Exam 01/23/2025 07/28/2023, , 07/22/2023, Additional history exists COLONOSCOPY-EVERY 5 YRS AGES [...] 02/09/2006 LUNG CANCER SCREENING - USE SMARTSET 23893 Completed 09/19/2023, 12/15/2022, 10/27/2017, Additional history exists GARDASIL-HPV IMMUNIZATION SERIES Aged Out No longer eligible based on patient's age to complete this topic MENINGOCOCCAL (MENACTRA/MENVEO) Aged Out No longer eligible based on patient's age to complete this topic documented as of this encounter Medical Devices Implanted Type Area Slag Wheeler Device Identifier Shelf Expiration Date Model / Serial / Lot Suture [place] Dbl Load 4.75mm - [id number] Implanted:Qty: 1 on 12/01/2019 by Judith Condon DO at OR [facility] Right: Shoulder [employer] 07/17/2021 AR-2324BCT -2 / / [id number] Suture [place] Dbl Load 5.5mm - [id number] Implanted:Qty: 1 on 12/01/2019 by Judith Condon DO at OR [facility] Right: Shoulder [employer] 09/16/2021 AR-2323BCT -2 / / [id number] documented as of this encounter Procedures Procedure Name Priority Date/Time Associated Diagnosis Comments DIABETIC EYE EXAM Routine 07/28/2023 DIABETIC EYE EXAM Routine 07/22/2023 documented in this encounter Results * DIABETIC EYE EXAM (07/28/2023) 07/28/2023 History Per Patient OTHER Performing Organization Address [facility] de Phone Number OUTSIDE LAB (SEE SCANNED REPORT) * DIABETIC EYE EXAM (07/22/2023) 07/22/2023 History Per Patient OTHER Performing Organization Address [facility] de Phone Number OUTSIDE LAB (SEE SCANNED REPORT) documented in [...] the patient have Health Care Power of Test Desk Supervisor? No Care Teams Cutter Finisher Relationship Specialty Start Date End Date Velasquez Valencia MD [address] [place] [address] PCP - General Family Medicine 09/09/22 documented as of this encounter
--- OUTSIDE RECORDS SUMMARY | 2024-07-14 04:57 | External Medical Summary | Summary of Care ---
Author Name Unknown Organization [facility] Address [address] [place] [address] Phone [phone] Care Team Providers Care Payable Processor Name Role Phone Velasquez Valencia MD Primary Care Provider +1- [phone] Reason for Visit * Reason Comments Dosage Adjustment In Person (Anticoag Cl inic) Diabetes Follow-Up Encounter Details Date Type Department Care Team (Late st Contact Info) Description 01/19/2024 10:30 AM EDT Office Visit Pharmacy, [address] [address] [facility] [address] [place] [address] Type 2 diabetes mellitus with hemoglobin A1c goal of less than 7.0% ([facility])* Allergies Active Allergy Reactions Criticality Noted Date Comments Cefaclor Unknown 07/26/2018 As child Empagliflozin Other (Please comment) 05/16/2021 DKA with hospitalization Nsaids High 04/19/2019 Gastric problems Other Reaction(s): gastroparesis, kidney problems, use with caution : hx esophagus damage documented as of this encounter (statuses as of 01/19/2024) Medications Medication Sig Dispensed Refills Start Date [...] morning 30 Tablet 1 12/27/19 24 Active traMADol HCl 50 MG Oral Tablet (Ultram)Indicati ons:Abdominal pain, epigastric Take 1 Tablet by mouth every 6 hours as needed for Pain, Severe. 40 Tablet 0 12/29/19 24 Active Metoprolol Succinate ER 100 MG [...] twice daily- this replaces lantus 54 mL 01/19/20 24 Active BD Pen Needle Short U/F 31G X 8 MM (Insulin Pen Needle)Indicatio ns:Type 2 diabetes mellitus with hemoglobin A1c goal of less than 7.0% (HCC) Use to inject insulin 5 times daily 500 Each 01/19/20 24 Active Insulin Aspart FlexPen 100 UNIT/ML Subcutaneous Solution Pen-injectorIndi cations:Type 2 diabetes mellitus with hemoglobin A1c goal of less than 7.0% (HCC) inject 22 units subcutaneously three times a day with meals 75 mL 01/19/20 24 Active Insulin Aspart FlexPen 100 [...] 400 Each 3 06/18/20 23 024 Discontinued Insulin Glargine Solostar 100 UNIT/ML Subcutaneous Solution Pen-injectorIndi cations:Type 2 diabetes mellitus with hemoglobin A1c goal of less than 7.0% (HCC) Inject 40 units in the morning and 40 units in the evening 0 11/29/19 24 024 Discontinued documented as of this encounter (statuses as of 01/19/2024) Active Problems Problem Noted Date Diagnosed Date [...] as of this encounter (statuses as of 01/19/2024) Resolved Problems Problem Noted Date Diagnosed Date [...] as of this encounter (statuses as of 01/19/2024) Immunizations Name Administration Dates Next Due COVID-19 mRNA, LNP-s, No Pre serve, 2-Dose Series ([id number]) 10/21/2021,03/01/2021,02/07/2021 H1N1 2009 Influenza, IM 11/04/2009 Pneumococcal Conjugate Vacci ne, 20-valent ([id number]) 07/09/2023 Pneumococcal Polysaccharide PPV23 (Pneumovax) 11/03/2015,02/09/2006 Seasonal [...] this encounter Progress Notes * Gisel Butler, [facility] - 01/19/2024 10:34 AM EDT Images from the original note were not included. Medication Therapy Disease Management [facility] - Diabetes Management Progress Note Bry Akhtar Jr., identified by name and date of , is a 48 year old male being seen for diabetes management/education. Patient presents for return diabetic visit. DIABETES: Current diabetic medications: Metformin HCL 500mg, 2 tabs BID Lantus 40 units AM and 40 units PM Novolog 18 units with meals- sometimes up to 36 Medication Injection Site: Abdomen Lifestyle: Diet: unchanged [...] 19+ 3-dose series) Never done COVID-19 Vaccine (2022-24 season) 2023 DISCUSS TOBACCO CESSATION (REFER TO SMARTSET #8465) 10/16/2023 Zoster Vaccines (1 of 2) Never done ASSESSMENT & PLAN: ICD-10-CM 1. Type 2 diabetes mellitus with hemoglobin A1c goal of less than 7.0% ([facility]) E11.9 Considerations: - Jardiance caused DKA - hx of acute pancreatitis 12/14/23- avoiding GLPs and GIPs BG Readings - Blood sugars uncontrolled. A1c 10.2%, and dexcom average sugar 343 mg/dL for the last14 days. Patient has potential upcoming surgery on his foot, but I did discuss with him today they may not operate with how high his sugars are. Medications - Reviewed current regimen, patient is adherent to regimen. Taken off of mounja afterhospitalization d/t acute pancreatitis in Febr. Discussed with patient that we will not revisit GLPs/GIPs. Confirmed appropriate administration of insulin. Will send in longer needles, as patient notes sometimes the insulin drips out a little. Changing lantus to toujeo for concentrated basal to allow for higher doses. He will take Lantus 45 units BID until supply is gone, then switch to toujeo Also will increase novolog doses for patient. Reached out to PCP regarding actos, as this may be a consideration to help increase insulin sensitivity. Otherwise, we will need to continue to to work with the insulin doses and metformin. Could consider OP5 for patient. This was not discussed with him, but there is a possibility that this may be an option. TDD is 146 at this time; patient may need to be changing his POD every 1-1.5 days if we go OP5 route. Diet, Exercise, Lifestyle - No significant lifestyle changes since last visit. Drinking diet or zero soda. Patient is agreeable to SMBG with dexcom G6 daily. Patient aware to contact clinic if any hypoglycemia before next visit. MEDICATION CHANGES: yes, see below; preferred pharmacy: [facility] ([facility]) Diabetic Medications: Metformin HCL 500mg, 2 tabs BID STOP Lantus 40 units AM and 40 units PM START Toujeo U300 40 units in AM and 40 units in PM INC Novolog 22 units with meals FOLLOW UP: Return to clinic in 4 weeks 02/16/2024 Gisel Butler [facility] Clinical Pharmacist - Operations Support Manager Medication Therapy Management Clinic 01/19/2024, 10:34 AM documented in this encounter Plan of Treatment Upcoming Encounters Date Type Department Care Team (Latest Contact Info) Description 02/09/2024 10:45 AM EDT Imaging Radiology [facility] [address] [facility], [address] [place] [address] 02/16/2024 11:20 AM EDT Office Visit Pharmacy[facility] [place] [address] [address] [place] [facility] [address] [address] 02/22/2024 9:17 AM EDT Hospital Encounter OR [facility], Operating Room, [facility] - 4th Floor [address] [place] [address] Marcela Del Valle MD [address] [place] [address] 02/22/2024 9:17 AM EDT - 02/22/2024 10:07 AM EDT Surgery OR [facility], Operating Room, [facility] - 4th Floor [address] [place] [address] Marcela Del Valle MD [address] [place] [address] COLONOSCOPY FLEXIBLE PROXIMAL DIAGNOSTIC 05/08/2024 11:40 AM EDT Office Visit [facility], [place] [address] [address] Velasquez Valencia [facility] [address] [facility] [address] Scheduled Procedures Name Priority Associated Diagnoses Date/Ti [...] ASSESSMENT COMPLETED IN PAST YEAR FOR COPD 01/13/2025 01/14/2024 COLONOSCOPY-EVERY 5 YRS AGES 18-100 04/15/2028 04/15/2023, 04/18/2015 DTaP,Tdap,and Td Vaccines (2 - Td or Tdap) 05/01/2028 05/01/2018 Lipid Panel 12/13/2028 12/13/2023, 12/17, 09/01/2021, Additional history exists Influenza Vaccine (FLU shot) Completed , 10/16/2022, 07/31/2021, Additional history exists Pneumococcal Vaccine: Pediatrics (0 to 5 Years) and At-Risk Patients (6 to 64 Years) Completed 07/09/2023, 11/03/2015, 02/09/2006 LUNG CANCER SCREENING - USE SMARTSET 08153 Completed 09/19/2023, 12/15/2022, 10/27/2017, Additional history exists GARDASIL-HPV IMMUNIZATION SERIES Aged Out No longer eligible based on patient's age to complete this topic MENINGOCOCCAL (MENACTRA/MENVEO) Aged Out No longer eligible based on patient's age to complete this topic documented as of this encounter Medical Devices Implanted Type Area Pattern Assembler Device Identifier Shelf Expiration Date Model / Serial / Lot Suture [place] Dbl Load 4.75mm - [id number] Implanted:Qty: 1 on 12/01/2019 by Judith Condon DO at OR [facility] Right: Shoulder [employer] 07/17/2021 AR-2324BCT -2 / / [id number] Suture [place] Dbl Load 5.5mm - [id number] Implanted:Qty: 1 on 12/01/2019 by Judith Condon DO at OR [facility] Right: Shoulder [employer] 09/16/2021 AR-2323BCT -2 / / [id number] documented as of this encounter Visit Diagnoses [...] the patient have Health Care Power of Medical Policy Specialist? No Care Teams Payable Processor Relationship Specialty Start Date End Date Velasquez Valencia MD [address] [place] [address] PCP - General Family Medicine 09/09/22 documented as of this encounter
--- OUTSIDE RECORDS SUMMARY | 2024-07-14 04:57 | External Medical Summary | Summary of Care ---
Author Name Unknown Organization [facility] Address [address] [place] [address] Phone [phone] Care Team Providers Care Psychology Lecturer Name Role Phone Velasquez Valencia MD Primary Care Provider +1- [phone] Reason for Visit * Reason Comments Dosage Adjustment In Person (Anticoag Cl inic) Diabetes Follow-Up Encounter Details Date Type Department Care Team (Late st Contact Info) Description 01/19/2024 10:30 AM EDT Office Visit Pharmacy, [address] [address] [facility] [address] [place] [address] Type 2 diabetes mellitus with hemoglobin A1c goal of less than 7.0% ([facility])* Allergies Active Allergy Reactions Criticality [...] with meals 75 mL 01/19/20 24 Active Pioglitazone HCl 15 MG Oral Tablet (Actos)Indicatio ns:Type 2 diabetes mellitus with hemoglobin A1c goal of less than 7.0% (HCC) Take 1 Tablet by mouth in the morning. 90 Tablet 0 01/19/20 24 Active Insulin Aspart FlexPen 100 [...] IM 11/04/2009 Pneumococcal Conjugate Vacci ne, 20-valent ([id number]) 07/09/2023 Pneumococcal Polysaccharide PPV23 (Pneumovax) 11/03/2015,02/09/2006 Seasonal [...] this encounter Progress Notes * Gisel Butler, [facility] - 01/19/2024 10:34 AM EDT Images [...] 2023 DISCUSS TOBACCO CESSATION (REFER TO SMARTSET #2928) 10/16/2023 Zoster Vaccines (1 of 2) Never [...] is adherent to regimen. Taken off of [facility]ization d/t acute pancreatitis in Febr. Discussed [...] Also will increase novolog doses for patient. We will start actos to help increase insulin sensitivity. Could consider OP5 for patient. This was [...] MEDICATION CHANGES: yes, see below; [facility] pharmacy[facility] Diabetic Medications: Metformin HCL 500mg, 2 tabs BID STOP Lantus 40 units AM and 40 units PM START Toujeo U300 40 units in AM and 40 units in PM INC Novolog 22 units with meals START Pioglitazone 15 mg daily eGFR> 90 mL/min as of 12/22/23 FOLLOW UP: Return to clinic in 4 weeks 02/16/2024 Gisel Butler RPh Clinical Pharmacist - Rotary Cutter Operator Medication Therapy Management Clinic 01/19/2024, 10:34 AM documented in this encounter Miscellaneous Notes * Addendum Note - Gisel Butler RPh - 01/19/2024 1:57 PM EDTAddended by: GISEL BUTLER on: 01/19/2024 01:57 PM Modules accepted: Orders documented in this encounter Plan of Treatment Upcoming Encounters Date Type Department Care Team (Latest Contact Info) Description 02/09/2024 10:45 AM EDT Imaging Radiology [facility] [address] [place] [address] 02/16/2024 11:20 AM EDT Office Visit Pharmacy, [address] [address] [facility] [place] [address] 02/22/2024 9:17 AM EDT Hospital Encounter OR [facility], Operating Room, [facility] - 4th Floor [address] [place] [address] Marcela Del Valle MD [address] [place] [address] [place] [address] 02/22/2024 9:17 AM EDT - 02/22/2024 10:07 AM EDT Surgery OR [facility], Operating Room, [facility] - 4th Floor [address] [place] [address] Marcela Del Valle MD [address] [place] [address] COLONOSCOPY FLEXIBLE PROXIMAL DIAGNOSTIC 05/08/2024 11:40 AM EDT Office Visit [facility] [address] [place] [address] Velasquez Valencia MD [address] [place] [address] Scheduled Procedures Name Priority Associated [...] 02/07/2021 DISCUSS TOBACCO CESSATION (REFER TO SMARTSET #0931) 10/16/2023 10/16/2022 Zoster Vaccines (1 of 2) [...] 02/09/2006 LUNG CANCER SCREENING - USE SMARTSET 94581 Completed 09/19/2023, 12/15/2022, 10/27/2017, Additional history exists GARDASIL-HPV IMMUNIZATION SERIES Aged Out No longer eligible based on patient's age to complete this topic MENINGOCOCCAL (MENACTRA/MENVEO) Aged Out No longer eligible based on patient's age to complete this topic documented as of this encounter Medical Devices Implanted Type Area Supervisor Stave Finishing Device Identifier Shelf Expiration Date Model / Serial / Lot Suture [place] Dbl Load 4.75mm - [id number] Implanted:Qty: 1 on 12/01/2019 by Judith Condon DO at OR [facility] Right: Shoulder [employer] 07/17/2021 AR-2324BCT -2 / / [id number] Suture [place] Dbl Load 5.5mm - [id number] Implanted:Qty: 1 on 12/01/2019 by Judith Condon DO at OR [facility] Right: Shoulder [employer] 09/16/2021 AR-2323BCT -2 / / [id number] documented as of this encounter Visit Diagnoses [...] the patient have Health Care Power of Flight Readiness Technician? No Care Teams Psychology Lecturer Relationship Specialty Start Date End Date Velasquez Valencia MD [address] [facility] [place] [address] PCP - General Family Medicine 09/09/22 documented as of this encounter
--- OUTSIDE RECORDS SUMMARY | 2024-07-14 04:57 | External Medical Summary | Summary of Care ---
Author Name Unknown Organization [facility] Address [address] [place] [address] Phone [phone] Care Team Providers Care Gas Refrigerator Servicer Name Role Phone Velasquez Valencia MD Primary Care Provider [phone]- [phone] Reason for Visit * Reason Onset Date Comments Medication Refill 01/20/2024 Medication Pre-auth 01/20/2024 Encounter Details Date Type Department Care Team (Late st Contact Info) Description 01/20/2024 Refill [facility] [address] [place] [address] Velasquez Valencia MD [address] [place] [address] Abdominal pain, epigastric Allergies Active Allergy Reactions Criticality Noted Date Comments Cefaclor Unknown 07/26/2018 As child Empagliflozin Other (Please comment) 05/16/2021 DKA with hospitalization Nsaids High 04/19/2019 Gastric problems Other Reaction(s): gastroparesis, kidney problems, use with caution : hx esophagus damage documented as of this encounter (statuses as of 01/21/2024) Medications Medication Sig Dispensed Refills Start Date [...] goal of less than 7.0% ([facility]) Inject 40 units twice daily- this replaces lantus 54 mL 4 01/19/2024 Active BD Pen Needle Short U/F 31G X 8 MM (Insulin Pen Needle)Indications :Type 2 diabetes mellitus with hemoglobin A1c goal of less than 7.0% ([facility]) Use to inject insulin 5 times daily 500 Each 3 01/19/2024 Active Insulin Aspart FlexPen 100 UNIT/ML Subcutaneous Solution Pen-injectorIndica tions:Type 2 diabetes mellitus with hemoglobin A1c goal of less than 7.0% ([facility]) inject 22 units subcutaneously three times a [...] as of this encounter (statuses as of 01/21/2024) Active Problems Problem Noted Date Diagnosed Date [...] as of this encounter (statuses as of 01/21/2024) Resolved Problems Problem Noted Date Diagnosed Date [...] as of this encounter (statuses as of 01/21/2024) Immunizations Name Administration Dates Next Due COVID-19 mRNA, LNP-s, No Pre serve, 2-Dose Series ([employer]) 10/21/2021,03/01/2021,02/07/2021 H1N1 2009 Influenza, IM 11/04/2009 Pneumococcal Conjugate Vacci ne, 20-valent ([id number]) 07/09/2023 Pneumococcal Polysaccharide PPV23 (Pneumovax) 11/03/2015,02/09/2006 Seasonal [...] encounter Miscellaneous Notes * Telephone Encounter - Kiera Santiago, [facility] - 01/21/2024 11:41 AM EDTRefused Prescriptions: Disp Refills traMADol HCl 50 MG Oral Tablet (Ultram) 40 Tab*0 Sig: Take 1 Tablet by mouth every 6 hours as needed for Pain, Severe. Refused By: KIERA SANTIAGO Reason for Refusal: Duplicate Request * Telephone Encounter - Radha Fair LPN - 01/21/2024 11:37 AM EDTPending Prescriptions: Disp Refills traMADol HCl 50 MG Oral Tablet (Ultram) 40 Tab*0 Sig: Take 1 Tablet by mouth every 6 hours as needed for Pain, Severe. * Telephone Encounter - Radha Fair LPN - 01/21/2024 11:36 AM EDTPending Prescriptions: Disp Refills traMADol HCl 50 MG Oral Tablet (Ultram) 40 Tab*0 Sig: Take 1 Tablet by mouth every 6 hours as needed for Pain, Severe. * Telephone Encounter - Raya Ernst CPhT - 01/21/2024 11:21 AM EDT Routed to correct pool. Thank you, Raya Ernst Sustainable Design Coordinator [email or web address] 01/21/2024, 11:22 AM * Telephone Encounter - Ximena Cramer LPN - 01/21/2024 10:56 AM EDTPending Prescriptions: Disp Refills traMADol HCl 50 MG Oral Tablet (Ultram) 40 Tab*0 Sig: Take 1 Tablet by mouth every 6 hours as needed for Pain, Severe. * Telephone Encounter - Ximena Cramer LPN - 01/21/2024 10:55 AM EDT Sent to incorrect pool. * Telephone Encounter - Raya Ernst CPhT - 01/20/2024 5:49 PM EDT Patients insurance would like to inform the office that traMADol HCl 50 MG is denied because Do notsee medical record documentation of pain that is moderate to severe AND Do not see medical record documentation of therapeutic failure, contraindication, or intolerance to non-opioid analgesics (For example, acetaminophen, nonsteroidal anti-inflammatory drugs, gabapentinoids, duloxetine, tricyclic antidepressants) appropriate for the beneficiarys condition. They will fax this info to the office, please review and resubmit if appropriate. Thank you, Raya Ernst Sustainable Design Coordinator [email or web address] 01/20/2024, 5:49 PM * Telephone Encounter - Aide Enrique greenhouse worker - 01/20/2024 12:59 PM EDT Kym tran from [facility]. Needs clinical information sent over for Tramadol. Please fax informationto [phone] by 5pm on 01/20 . EOC [id number] Thanks, Aide Enrique Milling Machine Tender III [facility] 01/20/2024,12:59 PM * Telephone Encounter - Karina House CPhT - 01/20/2024 11:12 AM EDT Did you pend patient's preferred pharmacy and medication before forwarding?yes Pharmacy: [id number] [address] [place] Pending Prescriptions: Disp Refills traMADol HCl 50 MG Oral Tablet (Ultram) 40 Tab*0 Sig: Take 1 Tablet by mouth every 6 hours as needed for Pain, Severe. Last Visit: 01/19/2024 (in office), Visit date not found (telemedicine) Next Visit: 05/08/2024 If no future appointments scheduled, and last appointment is greater than a year ago, please schedule patient for a follow-up appointment Last date the medication was ordered: 12/29/2023 Is this request for a controlled substance?Yes, What was the last refill date 12/29/2023 w/ [id number] and dosage 1 every 6 hours as needed and Urine Drug Screen Not completed Urine Drug Screen:No results found. However, due to the size of the patient record, not all encounters were searched. Please check Results Review for a complete set of results. Patient Phone Numbers Labs: Lab Results Component Value Date/Time CREAT 0.8 12/22/2023 11:48 AM CREAT 0.96 02/07/2023 12:00 AM CREAT 0.8 11/25/2019 08:53 AM POTASSIUM 4.9 01/14/2024 10:59 AM POTASSIUM 4.2 02/07/2023 12:00 AM POTASSIUM [...] Description 02/09/2024 10:45 AM EDT Imaging Radiology [address] [place] [address] 02/16/2024 11:20 AM EDT Office Visit Pharmacy, [address] [address] [facility] [address] [place] [address] 02/22/2024 9:17 AM EDT Hospital Encounter [facility], Operating Room, [facility] Floor [address] [place] [address] Marcela Del Valle MD [address] [place] [address] 02/22/2024 9:17 AM EDT - 02/22/2024 10:07 AM EDT Surgery OR [facility], Operating Room, [facility] - 4th Floor [address] [address] Marcela Del Valle MD [address] [place] [address] COLONOSCOPY FLEXIBLE PROXIMAL DIAGNOSTIC 05/08/2024 11:40 AM EDT Office Visit Family Practice, [place] [address] [place] [address] Velasquez Valencia MD [address], [place] [id number] Scheduled Procedures Name Priority Associated Diagnoses Date/Ti [...] 02/09/2006 LUNG CANCER SCREENING - USE SMARTSET 17443 Completed 09/19/2023, 12/15/2022, 10/27/2017, Additional history exists GARDASIL-HPV IMMUNIZATION SERIES Aged Out No longer eligible based on patient's age to complete this topic MENINGOCOCCAL (MENACTRA/MENVEO) Aged Out No longer eligible based on patient's age to complete this topic documented as of this encounter Medical Devices Implanted Type Area Water Main Installer Helper Device Identifier Shelf Expiration Date Model / Serial / Lot Suture [place] Dbl Load 4.75mm - [id number] Implanted:Qty: 1 on 12/01/2019 by Judith Condon DO at OR [facility] Right: Shoulder [employer] 07/17/2021 AR-2324BCT -2 / / [id number] Suture [place] Dbl Load 5.5mm - [id number] Implanted:Qty: 1 on 12/01/2019 by Judith Condon DO at OR [facility] Right: Shoulder [employer] 09/16/2021 AR-2323BCT -2 / / [id number] documented as of this encounter Visit Diagnoses [...] the patient have Health Care Power of Avian Keeper? No Care Teams Gas Refrigerator Servicer Relationship Specialty Start Date End Date Velasquez Valencia MD [address] [facility] [place] [address] PCP - General Family Medicine 09/09/22 documented as of this encounter
--- OUTSIDE RECORDS SUMMARY | 2024-07-14 04:57 | External Medical Summary | Summary of Care ---
Author Name Unknown Organization [facility] Address [address] [place] [address] Phone [phone] Care Team Providers Care Ostrich Farmer Name Role Phone Velasquez Valencia MD Primary Care Provider [phone] Reason for Referral * Medication Prior Authorization - Denied Specialty Diagnoses / Procedures Referred By Bismark brown Referred To Contact Diagnoses Abdominal pain, epigastric Velasquez Valencia MD [address] [place] [address] Referral ID Status Reason Start Date Expiration Date Visits Re quested Visits Authorized [id number] Denied 999 999 Reason for Visit * Reason Comments Follow Up Patient is here to g et cleared for his surgery on his ankle on the n would like to only talk to about concerns Encounter Details Date Type Department Care Team (Latest Contact Info) Description 01/19/2024 11:20 AM EDT Office Visit [facility] [address] [place] [address] Velasquez Valencia MD [address] [place] [facility] [place] [address] Charcot ankle, left*; S/P ankle fusion; Type 2 diabetes mellitus with hemoglobin A1c goal of less than 7.0% (HCC); Diabetic polyneuropathy associated with type 2 diabetes mellitus (HCC); Special screening examination for viral disease; COPD, moderate (HCC); Need for hepatitis C screening test; Need for vaccination for zoster; Abdominal pain, epigastric; Chronic respiratory failure with hypercapnia (HCC); Hyperlipidemia with target LDL less than 70; Obstructive sleep apnea; Restrictive lung disease secondary to obesity; Gastroesophageal reflux disease without esophagitis; Morbid obesity (HCC) Allergies Active Allergy Reactions Criticality Noted Date Comments Cefaclor Unknown 07/26/2018 As child Empagliflozin Other (Please comment) 05/16/2021 DKA with hospitalization Nsaids High 04/19/2019 Gastric problems Other Reaction(s): gastroparesis, kidney problems, use with caution : hx esophagus damage documented as of this encounter (statuses as of 01/26/2024) Medications Medication Sig Dispensed Refills Start Date [...] less than 7.0% ([facility]) Take 2 Tablets by mouth [...] of less than 7.0% ([facility]) inject 22 units subcutaneously three times a day with meals 75 mL 4 4 Active traMADol HCl 50 MG Oral Tablet (Ultram)Indicatio ns:Abdominal pain, epigastric Take 1 Tablet by mouth every 6 hours as needed for Pain, Severe. 40 Tablet 0 4 Active traMADol HCl 50 MG Oral Tablet (Ultram)Indicatio ns:Abdominal pain, epigastric Take 1 Tablet by mouth every 6 hours as needed for Pain, Severe. 40 Tablet 0 4 01/19/20 24 Discontinu ed(Refill) documented as of this encounter (statuses as of 01/26/2024) Active Problems Problem Noted Date Diagnosed Date [...] as of this encounter (statuses as of 01/26/2024) Resolved Problems Problem Noted Date Diagnosed Date [...] as of this encounter (statuses as of 01/26/2024) Immunizations Name Administration Dates Next Due COVID-19 mRNA, LNP-s, No Pre serve, 2-Dose Series (Pfizer) 10/21/2021,03/01/2021,02/07/2021 H1N1 2009 Influenza, IM 11/04/2009 Pneumococcal Conjugate Vacci ne, 20-valent (Judrqef01) 07/09/2023 Pneumococcal Polysaccharide PPV23 (Pneumovax) 11/03/2015,02/09/2006 Seasonal [...] Sign Reading Time Taken Comments Blood Pressure 122/68 01/19/2024 11:25 AM EDT Pulse 88 01/19/2024 11:25 AM EDT Temperature 36.2 C (97.1 F) 01/19/2024 11:25 AM E DT Respiratory Rate 16 01/19/2024 11:25 AM EDT Oxygen Saturation 95% 01/19/2024 11:25 AM EDT Inhaled Oxygen Concentration - - [...] Progress Notes * Velasquez Valencia MD - 01/19/2024 12:04 PM EDT Subjective: Bry Akhtar Jr. is a 48 year old male here today for Chief Complaint Patient presents with Follow Up Patient is here to get cleared for his surgery on his ankle on the [place] would like to only talk to dr about concerns Pt presents for follow up and to discuss upcoming foot/ankle surgery proposed by Dr Camacho and to be performed 02/04/24 at [facility]. Pt has a complex past medical history including diabetes with neuropathy and gastroparesis, obstructive sleep apnea treated with CPAP and supplemental oxygen, COPD, restrictive lung disease, obesity,gastroesophageal reflux disease, previous history of DVT, history of cervical spinal stenosis. Recent history has been complicated as well. He was admitted to [facility] October 2023 after weeks to months of left ankle pain. Was found to have a fracture of the talus and osteonecrosis. Underwent leftankle tibiotalocalcaneal arthrodesis and achilles tendon lengthening by Dr Camacho. No evidence for direct or cardiac complications to surgery. Had an ED visit after discharge for foot pain. Had refused rehab placement. Pt was admitted to [facility] 10/27/23 - 11/05/23 with abdominal pain, nausea, vomiting, hypertensive urgency, elevated troponin. Did have cardiology consultation who suggested an outpatient ischemic evaluation. It was noted that he had had a nonischemic stress echo in February of 2022. The abdominal pain was attributed to his severe gastroparesis exacerbated by narcotic therapy for his foot pain. Hypertensiveurgency responded to change in medication. He was then admitted to [facility] 12/12/23 - 12/14/23 with continued abdominal pain. Was felt to have constipation but also possible acute pancreatitis with elevated amylase and lipase. Was seen in consultation by Gastroenterology. Was suggested he proceed with planned EGD and colonoscopy in January and alsoset up an endoscopic ultrasound in 6 to 8 weeks. Due to the pancreatitis, gastroparesis, constipation; pt was taken off GLP-1 medication and blood sugars have been more elevated since. Seen in [facility] ED 12/22/23 with continued back and abd pain. Seen in [facility] ED 12/22 with abdominal pain. Pt reports seeing his superintendent nonselling for follow up recently due to increased pain and swelling of the left foot. States he was put through multiple tests at [facility] but we do not have access to recent podiatry notes or the results of any recent studies ordered by them. Pt has been given the impression that there is an urgent need for repeat surgery as previously placed hardware has failed. He states that he is scheduled for 02/04/24 at [place]. He was seen in our office 01/14/24 for preoperative medical evaluation. Please see that note for details. After the visit, pt was notified that he would need a stress test prior to surgery but he declined to schedule. Cardiac studies: 12/11/21 - 7 day zio with sinus tachycardia and rare atrial and ventricular ectopy. 03/08/22 - non-ischemic dobutamine stress echo 11/01/23 - echocardiogram with EF 50-54%, no wall motion abnormalities, no valvular disease 01/14/24 - EKG - sinus rhythm. Occasional PVCs. Incomplete RBBB seen on previous EKGs but not the most recent. Septal infarct seen on previous EKGs Diabetes uncontrolled recently. Seeing MTM. On metformin 1000 mg bid, lantus 45 units bid, novolog 18-36 units with meals. Jardiance caused DKA in past. Due to recent pancreatitis, avoiding GLPs and GIPs. There is a plan to change from lantus to toujeo when completes current prescription of lantus.Actos recently started to increase insulin sensitivity. 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 Current use of insulin ([facility]) 09/13/2017 DDD (degenerative disc disease), cervical 07/12/2019 Diabetes mellitus type 2, insulin dependent ([facility]) 07/05/2017 Diabetic polyneuropathy associated with type 2 diabetes mellitus ([facility]) 07/24/2016 Displacement of lumbar intervertebral disc without myelopathy DM type 2, goal: symptom mgmt ([facility]) 09/13/2017 DM type 2, not at goal ([facility]) Dyslipidemia, goal LDL below 70 07/24/2016 Gastroesophageal reflux disease without esophagitis 05/07/2020 Gastroparesis 08/27/2015 GERD (gastroesophageal reflux disease) History of DVT (deep vein thrombosis) 04/19/2019 HTN, goal below 140/90 12/23/2015 Per HTN Protocol #27. HTN, goal: symptom mgmt only 09/13/2017 IBS (irritable bowel syndrome) 08/27/2015 Intellectual disability 10/25/2019 Major depressive disorder, recurrent, severe without psychotic features ([facility]) 12/22/2016 Obesity, Class II, BMI 35-39.9, isolated (see actual BMI) 04/19/2019 OTHER osseochondrosis ankle Primary localized osteoarthrosis, lower leg Sleep apnea, obstructive Tobacco use disorder 12/22/2016 Type 2 diabetes mellitus with hemoglobin A1c goal of less than 8.0% ([facility]) 07/05/2017 Past Surgical History: Procedure Laterality Date ARTHO,SHOUL,W/ROTATOR CUFF Right 12/01/2019 ARTHROSCOPY SHOULDER ROTATOR CUFF performed by Judith Condon DO at OR [facility] COLONOSCOPY, DIAGNOSTIC (RECTUM) 04/18/2015 adenomatous polyp, repeat 5 yrs/[facility] COLONOSCOPY, DIAGNOSTIC (RECTUM) 04/15/2023 poor prep, repeat / [facility] EGD, FLEXIBLE, DIAGNOSTIC 10/17/2014 mild-mod inflammation, repeat 1-2 mo/[facility] EGD, FLEXIBLE, DIAGNOSTIC 04/17/2015 normal bx/inpt [facility] EGD, FLEXIBLE, DIAGNOSTIC 05/08/2019 reflux esophagitis, gastritis, duodenitis, repeat 6 wks / [facility] EGD, FLEXIBLE, DIAGNOSTIC 08/18/2019 normal-EGD/[place] EGD, FLEXIBLE, DIAGNOSTIC N/A 05/02/2020 biopsies normal/EGD INJECT DX/THER SUBSTANCE INTERLAMINAR CERVICAL/THORACIC W IMAGE GUIDE 08/17/2019 INJECTION SPINE LUMBAR CERVICAL OR THORACIC performed by Dario Nails DO at OR [facility] KNEE ARTHROSCOPY, DIAGNOSTIC l knee REMOVAL OF TONSILS, UNDER AGE 12 SHOULDER ARTHROSCOPY, BICEPS TENODESIS Right 12/01/2019 ARTHROSCOPY SHOULDER BICEP TENODESIS performed by Judith Condon DO at OR [facility] SHOULDER ARTHROSCOPY/DECOMPRESSION Right 12/01/2019 ARTHROSCOPY SHOULDER SUBACROMIAL DECOMPRESSION performed by Judith Condon DO at OR [facility] Review of patient's allergies indicates: Allergen Reactions [...] as needed for Nausea. 20 Tablet 0 Sennosides-Docusate Sodium 8.6-50 MG Oral Tablet (Senokot-S) Take 1 Tablet by mouth in the morning.30 Tablet 0 Spironolactone 25 MG Oral Tablet (Aldactone) Take 1 Tablet by mouth in the morning. 90 Tablet 3 Aspirin 81 MG Oral Tablet Delayed Release Take 1 Tablet by mouth in the morning. 90 Tablet 3 Fluticasone-Salmeterol 115-21 MCG/ACT Inhalation Aerosol (Advair HFA) Inhale 2 Puffs by mouth in the morning and 2 Puffs before bedtime. 12 g 12 Movantik 25 MG Oral Tablet (Naloxegol Oxalate) take 1 tablet by mouth in the morning 30 Tablet 1 Metoprolol Succinate ER 100 MG Oral Tablet Extended Release 24 Hour (toPROL XL) Take 1 tab by mouthtwice per day 180 Tablet 3 Pantoprazole Sodium 40 MG Oral Tablet Delayed Release (Protonix) TAKE 1 TABLET BY MOUTH TWICE A [id number] Tablet 1 Toujeo SoloStar 300 UNIT/ML Subcutaneous Solution Pen-injector (Insulin Glargine (1 Unit Dial)) Inject 40 units twice daily- this replaces lantus 54 mL 4 BD Pen Needle Short U/F 31G X 8 MM (Insulin Pen Needle) Use to inject insulin 5 times daily 500 Each 3 Insulin Aspart FlexPen 100 UNIT/ML Subcutaneous Solution Pen-injector inject 22 units subcutaneously three times a day with meals 75 mL 4 traMADol HCl 50 MG Oral Tablet (Ultram) Take 1 Tablet by mouth every 6 hours as needed for Pain, Severe. 40 Tablet 0 Pioglitazone HCl 15 MG Oral Tablet (Actos) Take 1 Tablet by mouth in the morning. 90 Tablet 0 Cyclobenzaprine HCl 10 MG Oral Tablet (Flexeril) TAKE 1 TABLET BY MOUTH AT BEDTIME ONLY NEEDED 30 Tablet 0 No current facility-administered medications for this visit. Objective: BP 122/68 | Pulse 88 | Temp 36.2 C (97.1 F) (Temporal Artery) | Resp 16 | SpO2 95% GEN: NAD HEENT: benign NECK: Supple with no LAD, TM, JVD CHEST: CTA B CV: tachycardic. Regular. ABD: Soft, NT/ND, No HSM, NABS EXT: There is warmth, swelling, tenderness of the left ankle. Assessment and Plan: Charcot ankle, left (Primary) S/P ankle fusion Type 2 diabetes mellitus with hemoglobin A1c goal of less than 7.0% (HCC) Diabetic polyneuropathy associated with type 2 diabetes mellitus (HCC) Special screening examination for viral disease COPD, moderate (HCC) Need for hepatitis C screening test Need for vaccination for zoster Abdominal pain, epigastric Chronic respiratory failure with hypercapnia (HCC) Hyperlipidemia with target LDL less than 70 Obstructive sleep apnea Restrictive lung disease secondary to obesity Gastroesophageal reflux disease without esophagitis Morbid obesity (HCC) -appreciate work of MTM to attempt improvement in blood sugars. -will obtain notes and study results from podiatry in regards to urgency of proposed surgery. -will ask cardiology to review case and see if they would be able to evaluate or arrange ischemic eval prior to surgery, if needed. 45 min with pt and documentation Velasquez Valencia MD documented in this encounter Nursing Notes * Garret Webster Student - 01/19/2024 11:29 AM EDT The patient has been properly identified by confirmation of name and date of . Chief Complaint Patient presents with Follow Up Patient is here to get cleared for his surgery on his ankle on the [place] would like to only talk to dr about concerns documented in this encounter Plan of Treatment Upcoming Encounters Date Type Department Care Team (Latest Contact Info) Description 02/09/2024 10:45 AM EDT Imaging Radiology [facility] [address] [place] [address] 02/16/2024 11:20 AM EDT [facility] [place] [address] [address] [facility] [address] [address] 02/22/2024 9:17 AM EDT Hospital Encounter OR [facility], Operating Room, [facility] - 4th Floor [address] [place] [address] Marcela Del Valle MD [address] [place] [address] 02/22/2024 9:17 AM EDT - 02/22/2024 10:07 AM EDT Surgery OR [facility], Operating Room, [facility] Floor [address] [place] [address] Marcela Del Valle MD [address] [place] [address] COLONOSCOPY FLEXIBLE PROXIMAL DIAGNOSTIC 05/08/2024 11:40 AM EDT Office Visit [facility] [address] [id number] Velasquez Valencia MD [address] [place] [facility] [place] [address] Scheduled Procedures Name Priority Associated Diagnoses Date/Ti [...] 02/09/2006 LUNG CANCER SCREENING - USE SMARTSET [id number] Completed 09/19/2023, 12/15/2022, 10/27/2017, Additional history exists GARDASIL-HPV IMMUNIZATION SERIES Aged Out No longer eligible based on patient's age to complete this topic MENINGOCOCCAL (MENACTRA/MENVEO) Aged Out No longer eligible based on patient's age to complete this topic documented as of this encounter Medical Devices Implanted Type Area Manager Paid Device Identifier Shelf Expiration Date Model / Serial / Lot Suture [place] Dbl Load 4.75mm - [id number] Implanted:Qty: 1 on 12/01/2019 by Judith Condon, DO at OR [facility] Right: Shoulder [employer] 07/17/2021 AR-[id number] -2 / / [id number] Suture [place] Dbl Load 5.5mm - [id number] Implanted:Qty: 1 on 12/01/2019 by Judith Condon, at OR [facility] Right: Shoulder [employer] 09/16/2021 AR-[id number] -2 / / [id number] documented as of this encounter Visit Diagnoses Diagnosis Charcot ankle, left- Primary S/P ankle fusion Arthrodesis status Type 2 diabetes mellitus with hemoglobin A1c goal of less than 7.0% (HCC) Diabetic polyneuropathy associated with type 2 diabetes mellitus (HCC) Special screening examination for viral disease Special screening examination for unspecified viral disease COPD, moderate (HCC) Chronic airway obstruction, not elsewhere classified Need for hepatitis C screening test Special screening examination for other specified viral diseases Need for vaccination for zoster Need for prophylactic vaccination and inoculation against other viral diseases Abdominal pain, epigastric Chronic respiratory failure with hypercapnia (HCC) Chronic respiratory failure Hyperlipidemia with target LDL less than 70 Other and unspecified hyperlipidemia Obstructive sleep apnea Obstructive sleep apnea (adult) (pediatric) Restrictive lung disease secondary to obesity Other diseases of lung, not elsewhere classified Gastroesophageal reflux disease without esophagitis Esophageal reflux Morbid obesity (HCC) Morbid obesity Screening for colon cancer Special screening for [...] the patient have Health Care Power of Customs Brokerage Manager? No Care Teams Ostrich Farmer Relationship Specialty Start Date End Date Velasquez Valencia MD [address] [place] [address] PCP - General Family Medicine 09/09/22 documented as of this encounter"
--- OUTSIDE RECORDS SUMMARY | 2024-07-14 04:58 | External Medical Summary | Summary of Care ---
Author Name Unknown Organization [facility] Address [address] [place] [address] Phone [phone] Care Team Providers Care E M Assembler Name Role Phone Velasquez Valencia MD Primary Care Provider +1- [phone] Reason for Referral * Medication Prior Authorization - Denied Specialty Diagnoses / Procedures Referred By Bismark brown Referred To Contact Diagnoses Abdominal pain, epigastric Velasquez Valencia MD [address] [place] [address] Referral ID Status Reason Start Date Expiration Date Visits Re quested Visits Authorized [id number] Denied 999 999 Reason for Visit * Reason Comments Hospital Follow-Up Encounter Details Date Type Department Care Team (Late st Contact Info) Description 12/29/2023 11:20 AM EDT Office Visit [facility] [address] [place] [id number] Velasquez Valencia MD [address], [place] [phone] Abdominal pain, epigastric*; HTN, goal below 140/90; Type 2 diabetes mellitus with hemoglobin A1c goal of less than 7.0% (HCC); COPD, moderate (HCC); Obstructive sleep apnea; Drug-induced constipation Allergies Active Allergy Reactions Criticality Noted Date Comments Cefaclor Unknown 07/26/2018 As child Empagliflozin Other (Please comment) 05/16/2021 DKA with hospitalization Nsaids High 04/19/2019 Gastric problems Other Reaction(s): gastroparesis, kidney problems, use with caution : hx esophagus damage documented as of this encounter (statuses as of 01/17/2024) Medications Medication Sig Dispensed Refills Start Date [...] 360 Tablet 3 06/18/20 23 Active Insulin Aspart FlexPen 100 UNIT/ML Subcutaneous Solution Pen-injectorIndi cations:Type 2 diabetes mellitus with hemoglobin A1c goal of less than 7.0% (HCC) inject 16 units subcutaneously three times a day with meals 45 mL 3 06/18/20 23 Active Additional Information Patient taking differently: inject 18 units subcutaneously three times a day with meals, Reported on 11/08/2023 Unifine Pentips 31G X 5 MM (Insulin Pen Needle)Indicatio ns:Type 2 diabetes mellitus with hemoglobin A1c goal of less than 7.0% (HCC) Use as directed 4 times daily 400 Each 3 06/18/20 23 Active Gabapentin 100 MG [...] bedtime. 12 g 12 11/17/19 24 Active Insulin Glargine Solostar 100 UNIT/ML Subcutaneous Solution Pen-injectorIndi cations:Type 2 diabetes mellitus with hemoglobin A1c goal of less than 7.0% ([facility]) Inject 40 units in the morning and 40 units in the evening 0 11/29/19 24 Active Movantik 25 MG Oral Tablet [...] 180 Tablet 1 01/08/20 23 024 Discontinued Metoprolol Succinate ER 100 MG Oral Tablet Extended Release 24 Hour (toPROL XL) Take 1 tab by mouth in the morning and a half tab in evening 135 Tablet 3 11/08/19 24 024 Discontinued(Re fill) documented as of this encounter (statuses as of 01/17/2024) Active Problems Problem Noted Date Diagnosed Date [...] as of this encounter (statuses as of 01/17/2024) Resolved Problems Problem Noted Date Diagnosed Date [...] as of this encounter (statuses as of 01/17/2024) Immunizations Name Administration Dates Next Due COVID-19 mRNA, LNP-s, No Pre serve, 2-Dose Series (YoungCurrent) 10/21/2021,03/01/2021,02/07/2021 H1N1 2009 Influenza, IM 11/04/2009 Pneumococcal Conjugate Vacci ne, 20-valent ([id number]) 07/09/2023 Pneumococcal Polysaccharide PPV23 (Pneumovax) 11/03/2015,02/09/2006 Seasonal [...] Sign Reading Time Taken Comments Blood Pressure 136/64 12/29/2023 11:10 AM EDT Pulse 123 12/29/2023 11:10 AM EDT Temperature 36.7 C (98 F) 12/29/2023 11:10 AM EDT Respiratory Rate 18 12/29/2023 11:10 AM EDT Oxygen Saturation 95% 12/29/2023 11:10 AM EDT Inhaled Oxygen Concentration - - Weight 142 kg (313 lb) 12/29/2023 11:10 AM EDT Height 190.5 cm (6' 3") 12/29/2023 11:10 AM EDT Body Mass Index 39.12 12/29/2023 11:10 AM EDT documented in this encounter Functional [...] Progress Notes * Velasquez Valencia MD - 12/29/2023 11:31 AM EDT Subjective: Bry Akhtar . is a 48 year old male here today for Chief Complaint Patient presents with Hospital Follow-Up Pt presents for follow up. Last month, admission to hospital and returned to ED twice recently. Still having abd pain. Bowels are moving better. Does get some relief of pain with tramadol. Reviewed blood pressures and sugars. No recent fever. 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 Current use of insulin (HCC) 09/13/2017 DDD (degenerative disc disease), cervical 07/12/2019 Diabetes mellitus type 2, insulin dependent ([facility]) 07/05/2017 Diabetic polyneuropathy associated with type 2 diabetes mellitus ([facility]) 07/24/2016 Displacement of lumbar intervertebral disc without myelopathy DM type 2, goal: symptom mgmt ([facility]) 09/13/2017 DM type 2, not at goal ([facility]) Dyslipidemia, goal LDL below 70 07/24/2016 Gastroesophageal reflux disease without esophagitis 05/07/2020 Gastroparesis 08/27/2015 GERD (gastroesophageal reflux disease) History of DVT (deep vein thrombosis) 04/19/2019 HTN, goal below 140/90 12/23/2015 Per HTN Protocol #27. HTN, goal: symptom mgmt only 09/13/2017 IBS (irritable bowel syndrome) 08/27/2015 Intellectual disability 10/25/2019 Major depressive disorder, recurrent, severe without psychotic features ([facility]) 12/22/2016 Obesity, Class II, BMI 35-39.9, isolated (see actual BMI) 04/19/2019 OTHER osseochondrosis ankle Primary localized osteoarthrosis, lower leg Sleep apnea, obstructive Tobacco use disorder 12/22/2016 Type 2 diabetes mellitus with hemoglobin A1c goal of less than 8.0% ([facility]) 07/05/2017 Past Surgical History: Procedure Laterality Date ARTHTOMAS Wood,W/ROTATOR CUFF Right 12/01/2019 ARTHROSCOPY SHOULDER ROTATOR CUFF performed by Judith Condon DO at OR [facility] COLONOSCOPY, DIAGNOSTIC (RECTUM) 04/18/2015 adenomatous polyp, repeat 5 yrs/[facility] COLONOSCOPY, DIAGNOSTIC (RECTUM) 04/15/2023 poor prep, repeat / [facility] EGD, FLEXIBLE, DIAGNOSTIC 10/17/2014 mild-mod inflammation, repeat 1-2 mo/[facility] EGD, FLEXIBLE, DIAGNOSTIC 04/17/2015 normal bx/inpt [facility] EGD, FLEXIBLE, DIAGNOSTIC 05/08/2019 reflux esophagitis, gastritis, duodenitis, repeat 6 wks / [facility] EGD, FLEXIBLE, DIAGNOSTIC 08/18/2019 normal-EGD/[place] EGD, FLEXIBLE, DIAGNOSTIC N/A 05/02/2020 biopsies normal/EGD INJECT DX/THER SUBSTANCE INTERLAMINAR CERVICAL/THORACIC W IMAGE GUIDE 08/17/2019 INJECTION SPINE LUMBAR CERVICAL OR THORACIC performed by Dario Nails DO at OR [facility] KNEE ARTHROSCOPY, DIAGNOSTIC l knee REMOVAL OF TONSILS, UNDER AGE 12 SHOULDER ARTHROSCOPY, BICEPS TENODESIS Right 12/01/2019 ARTHROSCOPY SHOULDER BICEP TENODESIS performed by Judith Condon DO at OR [facility] SHOULDER ARTHROSCOPY/DECOMPRESSION Right 12/01/2019 ARTHROSCOPY SHOULDER SUBACROMIAL DECOMPRESSION performed by Judith Condon DO at OR [facility] Review of patient's allergies indicates: Allergen Reactions [...] in the evening. 360 Tablet 3 Insulin Aspart FlexPen 100 UNIT/ML Subcutaneous Solution Pen-injector inject 16 units subcutaneously three times a day with meals (Patient taking differently: inject 18 units subcutaneously three times a day with meals) 45 mL 3 Unifine Pentips 31G X 5 MM (Insulin Pen Needle) Use as directed 4 times daily 400 Each 3 Gabapentin 100 MG Oral Capsule (Neurontin) [...] 2 Puffs before bedtime. 12 g 12 Insulin Glargine Solostar 100 UNIT/ML Subcutaneous Solution Pen-injector Inject 40 units in the morning and 40 units in the evening Movantik 25 MG Oral Tablet (Naloxegol Oxalate) take 1 tablet by mouth in the morning 30 Tablet 1 traMADol HCl 50 MG Oral Tablet (Ultram) Take 1 Tablet by mouth every 6 hours as needed for Pain, Severe. 40 Tablet 0 Metoprolol Succinate ER 100 MG Oral Tablet Extended Release 24 Hour (toPROL XL) Take 1 tab by mouthtwice per day 180 Tablet 3 Pantoprazole Sodium 40 MG Oral Tablet Delayed Release (Protonix) TAKE 1 TABLET BY MOUTH TWICE A [id number] Tablet 1 No current facility-administered medications for this visit. Objective: BP 136/64 | Pulse 123 | Temp 36.7 C (98 F) (Temporal Artery) | Resp 18 | Ht 1.905 m (6' 3") | Wt (!) 142 kg (313 lb) | SpO2 95% | BMI 39.12 kg/m | BSA 2.74 m GEN: NAD HEENT: Benign NECK: Supple with no LAD, TM, JVD CHEST: CTA B CV: RRR ABD: Soft, NT/ND, No HSM, NABS EXT: No c,c,e Assessment and Plan: Abdominal pain, epigastric (Primary) - traMADol HCl 50 MG Oral Tablet (Ultram); Take 1 Tablet by mouth every 6 hours as needed for Pain,Severe. HTN, goal below 140/90 - Metoprolol Succinate ER 100 MG Oral Tablet Extended Release 24 Hour (toPROL XL); Take 1 tab by mouth twice per day Type 2 diabetes mellitus with hemoglobin A1c goal of less than 7.0% (HCC) COPD, moderate (HCC) Obstructive sleep apnea Drug-induced constipation Continue current treatments. Call for new or worsening symptoms Follow Up: Return in about 4 months (around 04/29/2024) for recheck. | For: recheck | Check-out note: NV for BP and pulse check 1 week 38 min with pt and chart review. Velasquez Valencia MD documented in this encounter Nursing Notes * Radha Fair LPN - 12/29/2023 11:09 AM EDT The patient has been properly identified by confirmation of name and date of . Chief Complaint Patient presents with Hospital Follow-Up documented in this encounter Plan of Treatment Upcoming Encounters Date Type Department Care Team (Latest Contact Info) Description 01/19/2024 10:30 AM EDT Office Visit Pharmacy, [address] [address] [facility] [address] [place] [address] 02/09/2024 10:45 AM EDT Imaging Radiology [place] 1st Floor, [address] [place] [address] 02/22/2024 9:17 AM EDT Hospital Encounter OR [facility], Operating Room, [facility] - 4th Floor [address] [place] [address] Marcela Del Valle MD [address] [place] [address] [place] [address] 02/22/2024 9:17 AM EDT - 02/22/2024 10:07 AM EDT Surgery OR [facility], Operating Room, [facility] - 4th Floor [address] [place] [address] Marcela Del Valle MD [address] [place] [address] COLONOSCOPY FLEXIBLE PROXIMAL DIAGNOSTIC 05/08/2024 11:40 AM EDT Office Visit [facility] [address] [place] [address] Velasquez Valencia MD [address] [place] [address] Scheduled Procedures Name Priority Associated [...] 02/09/2006 LUNG CANCER SCREENING - USE SMARTSET [id number] Completed 09/19/2023, 12/15/2022, 10/27/2017, Additional history exists GARDASIL-HPV IMMUNIZATION SERIES Aged Out No longer eligible based on patient's age to complete this topic MENINGOCOCCAL (MENACTRA/MENVEO) Aged Out No longer eligible based on patient's age to complete this topic documented as of this encounter Medical Devices Implanted Type Area Pump Servicer Supervisor Device Identifier Shelf Expiration Date Model / Serial / Lot Suture [place] Dbl Load 4.75mm - [id number] Implanted:Qty: 1 on 12/01/2019 by Judith Condon DO at OR [facility] Right: Shoulder [employer] 07/17/2021 AR-2324BCT -2 / / [id number] Suture [place] Dbl Load 5.5mm - [id number] Implanted:Qty: 1 on 12/01/2019 by Judith Condon DO at OR [facility] Right: Shoulder [employer] 09/16/2021 AR-2323BCT -2 / / [id number] documented as of this encounter Visit Diagnoses Diagnosis Abdominal pain, epigastric- Primary HTN, goal below 140/90 Unspecified essential hypertension Type 2 diabetes mellitus with hemoglobin A1c goal of less than 7.0% (HCC) COPD, moderate (HCC) Chronic airway obstruction, not elsewhere classified Obstructive sleep apnea Obstructive sleep apnea (adult) (pediatric) Drug-induced constipation Other constipation Screening for colon cancer Special screening for [...] the patient have Health Care Power of First Coat Sander? No Care Teams E M Assembler Relationship Specialty Start Date End Date Velasquez Valencia MD [address] [place] [address] PCP - General Family Medicine 09/09/22 documented as of this encounter
--- OUTSIDE RECORDS SUMMARY | 2024-07-14 04:58 | External Medical Summary | Summary of Care ---
Author Name Unknown Organization [facility] Address [address] [place] [address] Phone [phone] Care Team Providers Care Warper Fixer Name Role Phone Velasquez Valencia MD Primary Care Provider +1- [phone] Reason for Referral * Precert (Within 24 hrs (call dept; emergent)) - Pending Review Specialty Diagnoses / Procedures Referred By Contac t Referred To Contact Radiology Diagnoses Elevated troponin Abnormal EKG History of chest pain Procedures NM MYOCARDIAL PERFUSION SPECT MULTIPLE STUDIES Veronica Goodrich MD [address] [place] [address] Referral ID Status Reason Start Date Expiration Date Visits Requested Visits Authorized [id number] Pending Review Precert 01/17/2024 999 999 Reason for Visit * Reason Onset Date Comments Appointment 01/17/2024 Encounter Details Date Type Department Care Team (Late st Contact Info) Description 01/17/2024 Telephone [facility] [address] [place] [facility] [address] Veronica Goodrich MD [address] [place] [address] Appointment Allergies Active Allergy Reactions Criticality Noted Date Comments Cefaclor Unknown 07/26/2018 As child Empagliflozin Other (Please comment) 05/16/2021 DKA with hospitalization Nsaids High 04/19/2019 Gastric problems Other Reaction(s): gastroparesis, kidney problems, use with caution : hx esophagus damage documented as of this encounter (statuses as of 01/18/2024) Medications Medication Sig Dispensed Refills Start Date [...] evening. 360 Tablet 3 06/18/2023 Active Insulin Aspart FlexPen 100 UNIT/ML Subcutaneous Solution Pen-injectorIndica tions:Type 2 diabetes mellitus with hemoglobin A1c goal of less than 7.0% (HCC) inject 16 units subcutaneously three times a day with meals 45 mL 3 06/18/2023 Active Additional Information Patient taking differently: inject 18 units subcutaneously three times a day with meals, Reported on 11/08/2023 Unifine Pentips 31G X 5 MM (Insulin Pen Needle)Indications :Type 2 diabetes mellitus with hemoglobin A1c goal of less than 7.0% (HCC) Use as directed 4 times daily 400 Each 3 06/18/2023 Active Gabapentin 100 MG Oral [...] before bedtime. 12 g 12 11/17/2023 Active Insulin Glargine Solostar 100 UNIT/ML Subcutaneous Solution Pen-injectorIndica tions:Type 2 diabetes mellitus with hemoglobin A1c goal of less than 7.0% ([facility]) Inject 40 units in the morning and 40 units in the evening 0 11/29/2023 Active Movantik 25 MG Oral Tablet (Naloxegol Oxalate) take 1 tablet by mouth in the morning 30 Tablet 1 12/27/2023 Active traMADol HCl 50 MG Oral Tablet (Ultram)Indication s:Abdominal pain, epigastric Take 1 Tablet by mouth every 6 hours as needed for Pain, Severe. 40 Tablet 0 12/29/2023 Active Metoprolol Succinate ER 100 MG Oral Tablet Extended Release 24 Hour (toPROL XL)Indications:HTN , goal below 140/90 Take 1 tab by mouth twice per day 180 Tablet 3 12/29/2023 Active Pantoprazole Sodium 40 MG Oral Tablet Delayed Release (Protonix) TAKE 1 TABLET BY MOUTH TWICE A DAY 180 Tablet 1 01/08/2024 Active documented as of this encounter (statuses as of 01/18/2024) Active Problems Problem Noted Date Diagnosed Date [...] as of this encounter (statuses as of 01/18/2024) Resolved Problems Problem Noted Date Diagnosed Date [...] as of this encounter (statuses as of 01/18/2024) Immunizations Name Administration Dates Next Due COVID-19 mRNA, LNP-s, No Pre serve, 2-Dose Series (Video Passports) 10/21/2021,03/01/2021,02/07/2021 H1N1 2009 Influenza, IM 11/04/2009 Pneumococcal Conjugate Vacci ne, 20-valent ([id number]) 07/09/2023 Pneumococcal Polysaccharide PPV23 (Pneumovax) 11/03/2015,02/09/2006 Seasonal [...] Miscellaneous Notes * Telephone Encounter - Maura Mercado OSA - 01/18/2024 1:55 PM EDT Please refax the EKG again they received everything else but that * Telephone Encounter - Nely Randhawa OSA - 01/18/2024 1:06 PM EDT Faxed. 01/18/2024 * Telephone Encounter - Veronica Goodrich MD - 01/18/2024 12:46 PM EDT Reviewed his medical records and discussed with pt and family No recent cardiac stress test or cardiac cath No active angina or SOB, cardiopulmonary symptom currently Pt has chronic elevated troponin, plateau level Addressed cardiac stress test again --> Please fax pre op clearance note to Dr Doug RON foot/ankle [facility] FAx [phone] * Telephone Encounter - Nely Randhawa OSA - 01/17/2024 12:42 PM EDT Please call patient to schedule NM Perfusion test. Thank you. * Telephone Encounter - Veronica Goodrich MD - 01/17/2024 10:18 AM EDT Reviewed all his record and repeated EKG With his recent cardiac issues but no recent f/u with cardio as out pt , pt still need to do cardiac stress test before surgery , scheduled on feb 03 Can we scheduled his stress test molina ? documented in this encounter Plan of Treatment Upcoming Encounters Date Type Department Care Team (Latest Contact Info) Description 01/19/2024 10:30 AM EDT Office Visit [facility], [place] [address] [place] [facility] [place] [address] [facility] [address] [place] [facility] [place] [address] 01/19/2024 11:20 AM EDT [facility] [place] [address] [facility] [address] Velasquez Valencia MD [address] [place] [address] 02/09/2024 10:45 AM EDT Imaging Radiology [facility] 1[address] [facility], [address] [place] [address] 02/22/2024 9:17 AM EDT Hospital Encounter OR [facility], Operating Room, [facility] - 4th Floor [address] [place] [address] aMrcela Del Valle MD [address] [place] [address] 02/22/2024 9:17 AM EDT - 02/22/2024 10:07 AM EDT Surgery OR [facility], Operating Room, [facility] - 4th Floor [address] [place] [address] Marcela Del Valle MD [address] [place] [address] COLONOSCOPY FLEXIBLE PROXIMAL DIAGNOSTIC 05/08/2024 11:40 AM EDT [facility] [place] [address] [facility] [address] Velasquez Valencia MD [address] [place] [address] Scheduled Orders Name Type Priority Associated Diagnoses Orde r Schedule NM MYOCARDIAL PERFUSION SPECT MULTIPLE STUDIES Cardiology STAT Elevated troponin Abnormal EKG History of chest pain Expected: 01/17/2024 (Approximate), Expires: 02/15/2025 Scheduled Procedures Name Priority Associated Diagnoses Date/Ti [...] 02/09/2006 LUNG CANCER SCREENING - USE SMARTSET 23984 Completed 09/19/2023, 12/15/2022, 10/27/2017, Additional history exists GARDASIL-HPV IMMUNIZATION SERIES Aged Out No longer eligible based on patient's age to complete this topic MENINGOCOCCAL (MENACTRA/MENVEO) Aged Out No longer eligible based on patient's age to complete this topic documented as of this encounter Medical Devices Implanted Type Area Waste Water Worker Device Identifier Shelf Expiration Date Model / Serial / Lot Suture [place] Dbl Load 4.75mm - [id number] Implanted:Qty: 1 on 12/01/2019 by Judith Condon DO at OR [facility] Right: Shoulder [employer] 07/17/2021 AR-2324BCT -2 / / [id number] Suture [place] Dbl Load 5.5mm - [id number] Implanted:Qty: 1 on 12/01/2019 by Judith Condon DO at OR [facility] Right: Shoulder [employer] 09/16/2021 AR-2323BCT -2 / / [id number] documented as of this encounter Visit Diagnoses Diagnosis Abnormal EKG- Primary Nonspecific abnormal electrocardiogram (ECG) (EKG) Elevated troponin Other abnormal blood chemistry History of chest pain Personal history of other specified diseases Screening for colon cancer Special screening for [...] patient have Health Care Power of Manager Research Development? No Care Teams Warper Fixer Relationship Specialty Start Date End Date Velasquez Valencia MD [address] [place] [address] PCP - General Family Medicine 09/09/22 documented as of this encounter
--- OUTSIDE RECORDS SUMMARY | 2024-07-14 04:58 | External Medical Summary | Summary of Care ---
Author Name Unknown Organization [facility] Address [address] [place] [address] Phone [phone] Care Team Providers Care Command And Control Systems Integrator Name Role Phone Velasquez Valencia MD Primary Care Provider +1- [phone] Reason for Referral * Precert (Within 24 hrs (call dept; emergent)) - Pending Review Specialty Diagnoses / Procedures Referred By Contac t Referred To Contact Radiology Diagnoses Elevated troponin Abnormal EKG History of chest pain Procedures NM MYOCARDIAL PERFUSION SPECT MULTIPLE STUDIES Veronica Goodrich MD [address] [place] [address] Referral ID Status Reason Start Date Expiration Date Visits Requested Visits Authorized [id number] Pending Review Precert 01/17/2024 999 999 Reason for Visit * Reason Onset Date Comments Appointment 01/17/2024 Encounter Details Date Type Department Care Team (Late st Contact Info) Description 01/17/2024 Telephone [facility] [address] [facility] [place] [address] Veronica Goodrich MD [address] [place] [address] Appointment Allergies Active Allergy Reactions [...] than 7.0% ([facility]) Inject 40 units in the morning and [...] mRNA, LNP-s, No Pre serve, 2-Dose Series ([employer] medical) 10/21/2021,03/01/2021,02/07/2021 H1N1 2009 Influenza, IM 11/04/2009 Pneumococcal Conjugate Vacci ne, 20-valent ([id number]) 07/09/2023 Pneumococcal Polysaccharide PPV23 (Pneumovax) 11/03/2015,02/09/2006 Seasonal [...] Encounter - Nely Randhawa OSA - 01/18/2024 3:12 PM EDT Faxed EKG. 01/18/2024 * Telephone Encounter - Maura Mercado OSA [...] Dr Doug RON foot/ankle [place] FAx [phone] * Telephone Encounter - Nely Randhawa OSA [...] 01/19/2024 10:30 AM EDT Office Visit Pharmacy, [place] [address] [facility] [place] [address] [place], [facility] [address] [facility] [place] [address] 01/19/2024 11:20 AM EDT Office Visit [facility], [place] [address] [facility] [address] Velasquez Valencia MD [address] [facility] [place] [address] 02/09/2024 10:45 AM EDT Imaging Radiology [facility]st [facility], [address] [place] [address] 02/22/2024 9:17 AM EDT Hospital Encounter OR [facility], Operating Room, [facility] - 4th Floor [address] [place] [address] Marcela Del Valle MD [address] [place] [address] 02/22/2024 9:17 AM EDT - 02/22/2024 10:07 AM EDT Surgery OR [facility], Operating Room, [facility] - 4th Floor [address] [place] [address] Marcela Del Valle MD [address] [place] [address] COLONOSCOPY FLEXIBLE PROXIMAL DIAGNOSTIC 05/08/2024 11:40 AM EDT Office Visit [facility] [address] [place] [address] Velasquez Valencia MD [address] [place] [address] Scheduled Orders Name Type Priority [...] 02/07/2021 DISCUSS TOBACCO CESSATION (REFER TO SMARTSET #[id number]) 10/16/2023 10/16/2022 Zoster Vaccines (1 of 2) [...] 02/09/2006 LUNG CANCER SCREENING - USE SMARTSET [id number] Completed 09/19/2023, 12/15/2022, 10/27/2017, Additional history exists GARDASIL-HPV IMMUNIZATION SERIES Aged Out No longer eligible based on patient's age to complete this topic MENINGOCOCCAL (MENACTRA/MENVEO) Aged Out No longer eligible based on patient's age to complete this topic documented as of this encounter Medical Devices Implanted Type Area Supervisor Metal Placing Device Identifier Shelf Expiration Date Model / Serial / Lot Suture [place] Dbl Load 4.75mm - [id number] Implanted:Qty: 1 on 12/01/2019 by Judith Condon DO at OR [facility] Right: Shoulder [employer] 07/17/2021 AR-2324BCT -2 / / [id number] Suture [place] Dbl Load 5.5mm - [id number] Implanted:Qty: 1 on 12/01/2019 by Judith Condon DO at OR [facility] Right: Shoulder [employer] 09/16/2021 AR-2323BCT -2 / / [id number] documented as of this encounter Visit Diagnoses [...] the patient have Health Care Power of Window Glass Cutter Off? No Care Teams Command And Control Systems Integrator Relationship Specialty Start Date End Date Velasquez Valencia MD [address] [place] [address] PCP - General Family Medicine 09/09/22 documented as of this encounter
--- OUTSIDE RECORDS SUMMARY | 2024-07-14 04:58 | External Medical Summary | Summary of Care ---
Author Name Unknown Organization [facility] Address [address] [place] [address] Phone [phone] Care Team Providers Care Inspection Machine Tender Name Role Phone Velasquez Valencia MD Primary Care Provider +1- [phone] Reason for Visit * Reason Comments pre-op exam Patient is here for pre op visit Encounter Details Date Type Department Care Team (Latest Contact Info) Description 01/14/2024 11:20 AM EDT Office Visit [address] [address] Veronica Goodrich MD [address] [place] [address] Preoperative general physical examination*; Special screening examination for viral disease; COPD, moderate ([facility]); Need for hepatitis C screening test; Need for vaccination for zoster; DM type 2 causing vascular disease ([facility]); Type 2 diabetes mellitus with hemoglobin A1c goal of less than 7.0% ([facility]); S/P ankle fusion; Tobacco use disorder; Morbid obesity ([facility]); Obstructive sleep apnea; History of DVT (deep vein thrombosis); History of diabetic ulcer of foot; Diabetic polyneuropathy associated with type 2 diabetes mellitus ([facility]); Chronic respiratory failure with hypercapnia ([facility]); Body mass index (BMI) of 40.0 to 44.9 in adult (HCC); Charcot ankle, left Allergies Active Allergy Reactions Criticality Noted Date [...] ([facility]) Inject 40 units in the morning and [...] mRNA, LNP-s, No Pre serve, 2-Dose Series ([employer]) 10/21/2021,03/01/2021,02/07/2021 H1N1 2009 Influenza, IM 11/04/2009 Pneumococcal Conjugate Vacci ne, 20-valent ([id number]) 07/09/2023 Pneumococcal Polysaccharide PPV23 (Pneumovax) 11/03/2015,02/09/2006 Seasonal [...] Sign Reading Time Taken Comments Blood Pressure 128/62 01/14/2024 11:08 AM EDT Pulse 95 01/14/2024 11:08 AM EDT Temperature 36.7 C (98 F) 01/14/2024 11: 08 AM EDT Respiratory Rate 16 01/14/2024 11:0 8 AM EDT Oxygen Saturation 96% 01/14/2024 11: 08 AM EDT Inhaled Oxygen Concentration - - Weight 145.8 kg (321 lb 6.4 oz) 024 11:08 AM EDT Height 185.4 cm (6' 1") 01/14/2024 11:0 8 AM EDT Body Mass Index 42.4 01/14/2024 11:08 AM EDT documented in this [...] as of this encounter Progress Notes * Maura Ramirez LPN - 01/14/2024 12:10 PM EDT ekg done as per dr's order PT TOLERATED WELL * Veronica Goodrich MD - 01/14/2024 11:36 AM EDT Subjective: Bry Akhtar is a 48 year old male. Presents at the request of Dr Camacho for medical clearance for Lt ankle hardware explant, lt tibio calcaneal arthrodesis . Scheduled on Feb 03 Extensive medical conditions with uncontrolled type 2 DM, insulin dependent , last hba1c more than 10 in nov Should f/u with MTM , PCP too Diet - encouraged Taking lantus 40 bid and pre meal insulin , using DEXcom Had eye exam a few months ago Lt ankle charcot - had ankle surgery in oct which caused complication , non healing Moderate to severe pain , persistent - hardware should be removed Also recently had hypertensive emergency with elevated troponin , was seen by cardio in octNov 2023 at hospital Last cardiac stress test in 2021 Currently denies any CP, leg swelling, SOB, palpitation and BP stable - no cardiopulmonary symptom He was supposed to get cardiac stress test in nov due to chest pain then but with admission, couldnt get it done Known hx of resp failure, COPD, smoking , but currently O2 Sat 96 %, does not use O2 Known severe DAMION , morbid obesity, was not using CPAP recently but has CPAP at home EKG today , reviewed PHM: Patient Active Problem List Diagnosis Code Morbid obesity ([facility]) E66.01 Type 2 diabetes mellitus with hemoglobin A1c goal of less than 7.0% ([facility]) E11.9 Gastroparesis K31.84 IBS (irritable bowel syndrome) K58.9 Diabetic polyneuropathy associated with type 2 diabetes mellitus ([facility]) E11.42 Hyperlipidemia with target LDL less than 70 E78.5 Tobacco use disorder F17.200 History of DVT (deep vein thrombosis) Z86.718 Combined arterial insufficiency and corporo-venous occlusive erectile dysfunction N52.03 DDD (degenerative disc disease), cervical M50.30 Cervical spinal stenosis M48.02 Gastroesophageal reflux disease without esophagitis K21.9 DM type 2 causing vascular disease ([facility]) E11.59 Precordial pain R07.2 Chronic respiratory failure with hypercapnia ([facility]) J96.12 Lumbar disc herniation M51.26 Body mass index (BMI) of 40.0 to 44.9 in adult ([facility]) Z68.41 Obstructive sleep apnea G47.33 Restrictive lung disease secondary to obesity J98.4, E66.9 Neuropathy G62.9 COPD, moderate ([facility]) J44.9 Cortical age-related cataract, right eye H25.011 Nausea and vomiting R11.2 Generalized abdominal pain R10.84 Constipation K59.00 Charcot ankle, left M14.672 S/P ankle fusion Z98.1 Intractable nausea and vomiting R11.2 Hypertensive emergency I16.1 Elevated troponin R79.89 Fall W19.XXXA History of diabetic ulcer of foot Z86.31 Current Outpatient Medications Medication Sig Dispense Refill [...] TAKE 1 TABLET BY MOUTH TWICE A [id number] Tablet 1 No current facility-administered medications for this visit. 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 Current use of insulin ([facility]) 09/13/2017 DDD (degenerative disc disease), cervical 07/12/2019 Diabetes mellitus type 2, insulin dependent ([facility]) 07/05/2017 Diabetic polyneuropathy associated with type 2 diabetes mellitus ([facility]) 07/24/2016 Displacement of lumbar intervertebral disc without myelopathy DM type 2, goal: symptom mgmt ([facility]) 09/13/2017 DM type 2, not at goal ([facility]) Dyslipidemia, goal LDL below 70 07/24/2016 Gastroesophageal reflux disease without esophagitis 05/07/2020 Gastroparesis 08/27/2015 GERD (gastroesophageal reflux disease) History of DVT (deep vein thrombosis) 04/19/2019 HTN, goal below 140/90 12/23/2015 Per HTN Protocol #27. HTN, goal: symptom mgmt only 09/13/2017 IBS (irritable bowel syndrome) 08/27/2015 Intellectual disability 10/25/2019 Major depressive disorder, recurrent, severe without psychotic features ([facility]) 12/22/2016 Obesity, Class II, BMI 35-39.9, isolated (see actual BMI) 04/19/2019 OTHER osseochondrosis ankle Primary localized osteoarthrosis, lower leg Sleep apnea, obstructive Tobacco use disorder 12/22/2016 Type 2 diabetes mellitus with hemoglobin A1c goal of less than 8.0% ([facility]) 07/05/2017 Past Surgical History: Procedure Laterality Date ARTHO,TOMAS,W/ROTATOR CUFF Right 12/01/2019 ARTHROSCOPY SHOULDER ROTATOR CUFF performed by Judith Condon DO at OR [facility] COLONOSCOPY, DIAGNOSTIC (RECTUM) 04/18/2015 adenomatous polyp, repeat 5 yrs/[facility] COLONOSCOPY, DIAGNOSTIC (RECTUM) 04/15/2023 poor prep, repeat / [facility] EGD, FLEXIBLE, DIAGNOSTIC 10/17/2014 mild-mod inflammation, repeat 1-2 mo/[facility] EGD, FLEXIBLE, DIAGNOSTIC 04/17/2015 normal bx/inpt [facility] EGD, FLEXIBLE, DIAGNOSTIC 05/08/2019 reflux esophagitis, gastritis, duodenitis, repeat 6 wks / [facility] EGD, FLEXIBLE, DIAGNOSTIC 08/18/2019 normal-EGD/[place] EGD, [...] Condon DO at OR [facility] Review of patient's allergies indicates: Allergen [...] (Not Specified) PGMA (Not Specified) Social History Tobacco Use Smoking status: Every Day Current packs/day: 1.50 Average packs/day: 1.5 packs/day for 33.0 years (49.5 ttl pk-yrs) Types: Cigarettes Smokeless tobacco: Never Tobacco comments: 01/27/23 currently smoking 10-15 cig/day Substance Use Topics Alcohol use: Yes Comment: 1 beer in the past two years Vaping/E-Cigarette Use Vaping/E-Cigarette Use Never User Vaping/E-Cigarette Substances Vaping/E-Cigarette Devices Review of Systems Constitutional: Positive for activity change and fatigue. Negative for appetite change, chills, diaphoresis, fever and unexpected weight change. HENT: Negative for hearing loss. Eyes: Negative for visual disturbance. Respiratory: Negative for cough, chest tightness, shortness of breath and wheezing. Cardiovascular: Negative for chest pain, palpitations and leg swelling. Gastrointestinal: Positive for nausea. Negative for abdominal distention, abdominal pain and vomiting. Endocrine: Negative. Genitourinary: Negative for hematuria. Musculoskeletal: Positive for arthralgias, gait problem and joint swelling. Allergic/Immunologic: Positive for environmental allergies. Neurological: Positive for weakness (lt ankle foot) and numbness. Negative for dizziness and light-headedness. Psychiatric/Behavioral: Positive for sleep disturbance. Negative for agitation and behavioral problems. The patient is nervous/anxious. Objective: BP 128/62 | Pulse 95 | Temp 36.7 C (98 F) (Tympanic) | Resp 16 | Ht 1.854 m (6' 1") | Wt (!) 145.8 kg (321 lb 6.4 oz) | SpO2 96% | BMI 42.40 kg/m | BSA 2.74 m Physical Exam Constitutional: General: He is not in acute distress. Appearance: Normal appearance. He is obese. He is not ill-appearing, toxic- appearing or diaphoretic. HENT: Head: Normocephalic and atraumatic. Nose: Nose normal. Eyes: Extraocular Movements: Extraocular movements intact. Cardiovascular: Rate and Rhythm: Normal rate and regular rhythm. Pulses: Normal pulses. Heart sounds: Normal heart sounds. No murmur heard. Pulmonary: Effort: Pulmonary effort is normal. No respiratory distress. Breath sounds: No stridor. No wheezing, rhonchi or rales. Chest: Chest wall: No tenderness. Abdominal: Palpations: Abdomen is soft. Musculoskeletal: General: Swelling and tenderness (lt ankle foot) present. Right lower leg: No edema. Left lower leg: No edema. Neurological: General: No focal deficit present. Mental Status: He is alert and oriented to person, place, and time. Cranial Nerves: No cranial nerve deficit. Sensory: Sensory deficit present. Gait: Gait abnormal. Psychiatric: Behavior: Behavior normal. Comments: Anxiety ASSESSMENT: Diagnosis for procedure: failure of lt ankle hardware Preoperative Examination : EKG, blood tests PLAN: Patient is medically Cleared with moderate risk conditions for general anesthesia Discussed with pt and , aware of this - pt will need cardiac stress test soon though (Z01.818) Preoperative general physical examination (primary encounter diagnosis) Plan: EKG, EKG Blood tests (Z11.59) Special screening examination for viral disease (J44.9) COPD, moderate ([facility]) Plan: inhaler (Z11.59) Need for hepatitis C screening test (E11.59) DM type 2 causing vascular disease ([facility]) Plan: ALBUMIN / CREATININE RATIO, URINE, ALBUMIN / CREATININE RATIO, URINE (E11.9) Type 2 diabetes mellitus with hemoglobin A1c goal of less than 7.0% ([facility]) Plan: insulin , diet (Z98.1) S/P ankle fusion (F17.200) Tobacco use disorder (E66.01) Morbid obesity ([facility]) (G47.33) Obstructive sleep apnea Plan: CPAP (Z86.718) History of DVT (deep vein thrombosis) (Z86.31) History of diabetic ulcer of foot (E11.42) Diabetic polyneuropathy associated with type 2 diabetes mellitus ([facility]) (J96.12) Chronic respiratory failure with hypercapnia ([facility]) Stable (Z68.41) Body mass index (BMI) of 40.0 to 44.9 in adult ([facility]) (M14.672) Charcot ankle, left Veronica Goodrich MD documented in this encounter Procedure Notes * Avery Gonzales MD - 01/14/2024 12:07 PM EDTAssociated Order(s): EKG REASON FOR STUDY: pre op;pre op CONCLUSIONS: Sinus rhythm with occasional Premature ventricular complexes Incomplete right bundle branch block Septal infarct (cited on or before 22-Dec-2023) Abnormal ECG When compared with ECG of 22-Dec-2023 11:29, Premature ventricular complexes are now Present Incomplete right bundle branch block is now Present Questionable change in initial forces of Septal leads Ventricular Rate: 96 Atrial Rate: 96 GA Interval: 140 QRS Duration: 100 QT/QTc: 358/452 ms P-R-T [place]: 45 : 17 : 49 degrees documented in this encounter Nursing Notes * Garret Webster Student - 01/14/2024 11:13 AM EDT The patient has been properly identified by confirmation of name and date of . Chief Complaint Patient presents with pre-op exam Patient is here for pre op visit documented in this encounter Plan of Treatment Upcoming Encounters Date Type Department Care Team (Latest Contact Info) Description 01/19/2024 10:30 AM EDT [place] [address] [place] [address] [facility] [address] [place] [address] 02/09/2024 10:45 AM EDT Imaging Radiology [facility] 1st [facility] [address] [facility] [place] [address] 02/22/2024 9:17 AM EDT Hospital Encounter OR [facility], Operating Room, [facility] - 4th Floor [address] [place] [address] Marcela Del Valle MD [address] [place] [address] 02/22/2024 9:17 AM EDT - 02/22/2024 10:07 AM EDT Surgery OR [facility], Operating Room, [facility] - 4th Floor [address] [place] [address] Marcela Del Valle MD [address] [place] [address] COLONOSCOPY FLEXIBLE PROXIMAL DIAGNOSTIC 05/08/2024 11:40 AM EDT Office Visit [address] [place] [id number] Velasquez Valencia MD [address] [place] [address] Scheduled Procedures Name Priority Associated [...] 02/09/2006 LUNG CANCER SCREENING - USE SMARTSET [id number] Completed 09/19/2023, 12/15/2022, 10/27/2017, Additional history exists GARDASIL-HPV IMMUNIZATION SERIES Aged Out No longer eligible based on patient's age to complete this topic MENINGOCOCCAL (MENACTRA/MENVEO) Aged Out No longer eligible based on patient's age to complete this topic documented as of this encounter Medical Devices Implanted Type Area Cooler Conveyor Loader Device Identifier Shelf Expiration Date Model / Serial / Lot Suture [place] Dbl Load 4.75mm - [id number] Implanted:Qty: 1 on 12/01/2019 by Judith Condon DO at OR [facility] Right: Shoulder [employer] 07/17/2021 AR-2324BCT -2 / / [id number] Suture [place] Dbl Load 5.5mm - [id number] Implanted:Qty: 1 on 12/01/2019 by Judith Condon DO at OR [facility] Right: Shoulder [employer] 09/16/2021 AR-2323BCT -2 / / [id number] documented as of this encounter Procedures Procedure Name Priority Date/Time Associated Diagnosis Comments ALBUMIN / CREATININE RATIO, URINE Routine 01/14/2024 12:16 PM EDT DM type 2 causing vascular disease (HCC) GA ECG ROUTINE ECG W/LEAST 12 LDS I&R ONLY Routine 01/14/2024 12:07 PM EDT Preoperative general physical examination documented in this encounter Results * (ABNORMAL) ALBUMIN / CREATININE RATIO, URINE (01/14/2024 12:16 PM EDT) Albumin, Random Urine 4.11 mg/dL 01/14/2024 10:21 PM EDT [facility] Creatinine, Random Urine 36 mg/dL 01/14/2024 10:21 PM EDT [facility] Albumin / Creatinine Ratio, Urine 114(H) <30 mg/g Creat 01/14/2024 10:21 PM EDT [facility] Urine Urine specimen / Unknown Non-blood Collection / Unknown 01/14/2024 12:16 PM EDT 01/14/2024 12:16 PM EDT Narrative [facility] - 01/14/2024 10:21 PM EDT Normal: <30 mg/g creatinine High: 30-300 mg/g creatinine Very High: >300 mg/g creatinine Nephrotic: >2200 mg/g creatinine Veronica Goodrich MD LAB URINE ORDERABLES Performing Organization Address [facility] Co de Phone Number [facility] [address] [place] [address] * EKG (01/14/2024 12:07 PM EDT) 01/14/2024 12:0 7 PM EDT Narrative Procedure Note Avery Gonzales MD - 01/14/2024 12:07 PM EDT REASON FOR STUDY: pre op;pre op CONCLUSIONS: Sinus rhythm with occasional Premature ventricular complexes Incomplete right bundle branch block Septal infarct (cited on or before 22-Dec-2023) Abnormal ECG When compared with ECG of 22-Dec-2023 11:29, Premature ventricular complexes are now Present Incomplete right bundle branch block is now Present Questionable change in initial forces of Septal leads Ventricular Rate: 96 Atrial Rate: 96 GA Interval: 140 QRS Duration: 100 QT/QTc: 358/452 ms P-R-T [place]: 45 : 17 : 49 degrees Veronica Goodrich MD EKG Performing Organization Address [facility] Co de Phone Number [facility] documented in this encounter Visit Diagnoses Diagnosis Preoperative general physical examination- Primary Other specified pre-operative examination Special screening examination for viral disease Special screening examination for unspecified viral disease COPD, moderate (HCC) Chronic airway obstruction, not elsewhere classified Need for hepatitis C screening test Special screening examination for other specified viral diseases Need for vaccination for zoster Need for prophylactic vaccination and inoculation against other viral diseases DM type 2 causing vascular disease (HCC) Type II or unspecified type diabetes mellitus with peripheral circulatory disorders, not stated as uncontrolled Type 2 diabetes mellitus with hemoglobin A1c goal of less than 7.0% (HCC) S/P ankle fusion Arthrodesis status Tobacco use disorder Morbid obesity (HCC) Morbid obesity Obstructive sleep apnea Obstructive sleep apnea (adult) (pediatric) History of DVT (deep vein thrombosis) Personal history of venous thrombosis and embolism History of diabetic ulcer of foot Diabetic polyneuropathy associated with type 2 diabetes mellitus (HCC) Chronic respiratory failure with hypercapnia (HCC) Chronic respiratory failure Body mass index (BMI) of 40.0 to 44.9 in adult (HCC) Charcot ankle, left Screening for colon cancer Special screening for [...] the patient have Health Care Power of Delineator? No Care Teams Inspection Machine Tender Relationship Specialty Start Date End Date Velasquez Valencia MD [address] [place] [address] PCP - General Family Medicine 09/09/22 documented as of this encounter
--- OUTSIDE RECORDS SUMMARY | 2024-07-14 04:58 | External Medical Summary | Summary of Care ---
Author Name Unknown Organization [facility] Address [address] [place] [address] Phone [phone] Care Team Providers Care Line Tender Name Role Phone Velasquez Valencia MD Primary Care Provider +1- [phone] Reason for Referral * Precert (Within 24 hrs (call dept; emergent)) - Pending Review Specialty Diagnoses / Procedures Referred By Contac t Referred To Contact Radiology Diagnoses Elevated troponin Abnormal EKG History of chest pain Procedures NM MYOCARDIAL PERFUSION SPECT MULTIPLE STUDIES Veronica Goodrich MD [address] [place] [address] Referral ID Status Reason Start Date Expiration Date Visits Requested Visits Authorized [id number] Pending Review Precert 01/17/[phone] Reason for Visit * Reason Onset Date Comments Appointment 01/17/2024 Encounter Details Date Type Department Care Team (Late st Contact Info) Description 01/17/2024 Telephone [facility] [address] [place] [facility] [place] [address] Veronica Goodrich MD [address] [place] [address] Appointment Allergies Active Allergy Reactions [...] 7.0% ([facility]) Inject 40 units in the morning [...] mRNA, LNP-s, No Pre serve, 2-Dose Series ([employer]) 10/21/2021,03/01/2021,02/07/2021 H1N1 2009 Influenza, IM 11/04/2009 Pneumococcal Conjugate Vacci ne, 20-valent ([id number]) 07/09/2023 Pneumococcal Polysaccharide PPV23 (Pneumovax) 11/03/2015,02/09/2006 Seasonal [...] 01/19/2024 10:30 AM EDT Office Visit Pharmacy, [place] [address] [place] [address] [facility] [address] [place] [address] 02/09/2024 10:45 AM EDT Imaging Radiology [facility] 1st [facility] [address] [facility] [place] [address] 02/22/2024 9:17 AM EDT Hospital Encounter OR [facility], Operating Room, [facility] - 4th Floor [address] [place] [address] Marcela Del Valle MD [address] [facility] [place] [address] 02/22/2024 9:17 AM EDT - 02/22/2024 10:07 AM EDT Surgery OR [facility], Operating Room, [facility] - 4th Floor [address] [place] [address] Marcela Del Valle MD [address] [place] [address] COLONOSCOPY FLEXIBLE PROXIMAL DIAGNOSTIC 05/08/2024 11:40 AM EDT Office Visit [facility] [address] [place] [address] Velasquez Valencia MD [address] [place] [address] Scheduled Orders Name Type Priority [...] 02/07/2021 DISCUSS TOBACCO CESSATION (REFER TO SMARTSET #[id number]) 10/16/2023 10/16/2022 Zoster Vaccines (1 of 2) [...] 02/09/2006 LUNG CANCER SCREENING - USE SMARTSET 73778 Completed 09/19/2023, 12/15/2022, 10/27/2017, Additional history exists GARDASIL-HPV IMMUNIZATION SERIES Aged Out No longer eligible based on patient's age to complete this topic MENINGOCOCCAL (MENACTRA/MENVEO) Aged Out No longer eligible based on patient's age to complete this topic documented as of this encounter Medical Devices Implanted Type Area Opening Machine Cleaner Device Identifier Shelf Expiration Date Model / Serial / Lot Suture [place] Dbl Load 4.75mm - [id number] Implanted:Qty: 1 on 12/01/2019 by Judith Condon DO at OR [facility] Right: Shoulder [employer] 07/17/2021 AR-2324BCT -2 / / [id number] Suture [place] Dbl Load 5.5mm - [id number] Implanted:Qty: 1 on 12/01/2019 by Judith Condon DO at OR [facility] Right: Shoulder [employer] 09/16/2021 AR-2323BCT -2 / / [id number] documented as of this encounter Visit Diagnoses [...] patient have Health Care Power of First Aid Trainer? No Care Teams Line Tender Relationship Specialty Start Date End Date Velasquez Valencia MD [address] [place] [address] PCP - General Family Medicine 09/09/22 documented as of this encounter
--- OUTSIDE RECORDS SUMMARY | 2024-07-14 04:58 | External Medical Summary | Summary of Care ---
Author Name Unknown Organization [facility] Address [address] [place] [address] Phone [phone] Care Team Providers Care Security Researcher Name Role Phone Velasquez Valencia MD Primary Care Provider +1- [phone] Reason for Referral * Precert (Within 24 hrs (call dept; emergent)) - Pending Review Specialty Diagnoses / Procedures Referred By Contac t Referred To Contact Radiology Diagnoses Elevated troponin Abnormal EKG History of chest pain Procedures NM MYOCARDIAL PERFUSION SPECT MULTIPLE STUDIES Veronica Goodrich MD [address] [place] [address] Referral ID Status Reason Start Date Expiration Date Visits Requested Visits Authorized [id number] Pending Review Precert 01/17/[phone] Reason for Visit * Reason Onset Date Comments Appointment 01/17/2024 Encounter Details Date Type Department Care Team (Late st Contact Info) Description 01/17/2024 Telephone [facility] [address] [place] [facility] [place] [address] Veronica Goodrich MD [address] [place] [address] Appointment Allergies Active Allergy Reactions [...] 7.0% ([facility]) Inject 40 units in the morning and [...] mRNA, LNP-s, No Pre serve, 2-Dose Series ([employer]) 10/21/2021,03/01/2021,02/07/2021 H1N1 2009 Influenza, IM 11/04/2009 Pneumococcal Conjugate Vacci ne, 20-valent (Dnnricv59) 07/09/2023 Pneumococcal Polysaccharide PPV23 (Pneumovax) 11/03/2015,02/09/2006 Seasonal [...] encounter Miscellaneous Notes * Telephone Encounter - Veronica Goodrich MD [...] Dr Doug RON foot/ankle [place] FAx [phone] * Telephone Encounter - Nely Randhawa OSA [...] 01/19/2024 10:30 AM EDT Office Visit Pharmacy, [place] [address] [place] [address] [place], [facility] [address] [place] [address] 01/19/2024 11:20 AM EDT Office Visit [place] [address] [facility] [phone] Velasquez Valencia MD [address] [place] [facility] [place] [address] 02/09/2024 10:45 AM EDT Imaging Radiology [facility] 1st [facility] [place] [address] [facility] [place] [address] 02/22/2024 9:17 AM EDT Hospital Encounter OR [facility], Operating Room, [facility] - 4th Floor [address] [place] [address] Marcela Del Valle MD [address] [place] [address] 02/22/2024 9:17 AM EDT - 02/22/2024 10:07 AM EDT Surgery OR [facility], Operating Room, [facility] - 4th Floor [address] [place] [address] Marcela Del Valle MD [address] [place] [address] COLONOSCOPY FLEXIBLE PROXIMAL DIAGNOSTIC 05/08/2024 11:40 AM EDT Office Visit [place] [address] [facility] [address] Velasquez Valencia [facility] [address] [facility] [address] Scheduled Orders Name Type Priority Associated Diagnoses [...] 02/09/2006 LUNG CANCER SCREENING - USE SMARTSET [id number] Completed 09/19/2023, 12/15/2022, 10/27/2017, Additional history exists GARDASIL-HPV IMMUNIZATION SERIES Aged Out No longer eligible based on patient's age to complete this topic MENINGOCOCCAL (MENACTRA/MENVEO) Aged Out No longer eligible based on patient's age to complete this topic documented as of this encounter Medical Devices Implanted Type Area Quality Control Lead Device Identifier Shelf Expiration Date Model / Serial / Lot Suture [place] Dbl Load 4.75mm - [id number] Implanted:Qty: 1 on 12/01/2019 by Judith Condon, DO at OR [facility] Right: Shoulder [employer] 07/17/2021 AR-2324BCT -2 / / [id number] Suture [place] Dbl Load 5.5mm - [id number] Implanted:Qty: 1 on 12/01/2019 by Judith Condon, DO at OR [facility] Right: Shoulder [employer] 09/16/2021 AR-2323BCT -2 / / [id number] documented as of this encounter Visit Diagnoses [...] the patient have Health Care Power of Learning Center Instructor? No Care Teams Security Researcher Relationship Specialty Start Date End Date Velasquez Valencia MD [address] [place] [address] PCP - General Family Medicine 09/09/22 documented as of this encounter
--- OUTSIDE RECORDS SUMMARY | 2024-07-14 04:58 | External Medical Summary | Summary of Care ---
Author Name Unknown Organization [facility] Address [address] [place] [address] Phone [phone] Care Team Providers Care Solar Panel Installer Name Role Phone Velasquez Valencia MD Primary Care Provider +1- [phone] Reason for Referral * Precert (Within 24 hrs (call dept; emergent)) - Pending Review Specialty Diagnoses / Procedures Referred By Contac t Referred To Contact Radiology Diagnoses Elevated troponin Abnormal EKG History of chest pain Procedures NM MYOCARDIAL PERFUSION SPECT MULTIPLE STUDIES Veronica Goodrich MD [address] [place] [address] Referral ID Status Reason Start Date Expiration Date Visits Requested Visits Authorized [id number] Pending Review Precert 01/17/[phone] Reason for Visit * Reason Onset Date Comments Appointment 01/17/2024 Encounter Details Date Type Department Care Team (Late st Contact Info) Description 01/17/2024 Telephone [facility] [address] [place] [facility] [place] [address] Veronica Goodrich MD [address] [place] [address] Appointment Allergies Active Allergy Reactions [...] hemoglobin A1c goal of less than 7.0% ([facility]) Inject 40 units in the morning [...] mRNA, LNP-s, No Pre serve, 2-Dose Series ([employer]) 10/21/2021,03/01/2021,02/07/2021 H1N1 2009 Influenza, IM 11/04/2009 Pneumococcal Conjugate Vacci ne, 20-valent ([id number]) 07/09/2023 Pneumococcal Polysaccharide PPV23 (Pneumovax) 11/03/2015,02/09/2006 Seasonal [...] fax pre op clearance note to Dr Camacho foot/ankle [place] FAx [phone] * Telephone Encounter - Nely Randhawa OSA [...] Description 01/19/2024 10:30 AM EDT Office Visit [address] [place] [address] [facility] [address] [facility] [address] 01/19/2024 11:20 AM EDT Office Visit [facility] [place] [address] [facility] [place] [phone] Velasquez Valencia MD [address] [facility] [place] [address] 02/09/2024 10:45 AM EDT Imaging Radiology [facility] 1st [facility] [address] [facility] [place] [address] 02/22/2024 9:17 AM EDT Hospital Encounter OR [facility], Operating Room, [facility] - 4th Floor [address] [place] [address] Marcela Del Valle MD [address] [place] [address] 02/22/2024 9:17 AM EDT - 02/22/2024 10:07 AM EDT Surgery OR [facility], Operating Room, [facility] - 4th Floor [address] [place] [address] Marcela Del Valle MD [address] [facility] [address] [place] [address] COLONOSCOPY FLEXIBLE PROXIMAL DIAGNOSTIC 05/08/2024 11:40 AM EDT Office Visit [facility] [place] [address] [facility] [place] [phone] Velasquez Valencia MD [address] [place] [address] Scheduled Orders Name Type Priority Associated Diagnoses [...] 02/09/2006 LUNG CANCER SCREENING - USE SMARTSET 55[address] Completed 09/19/2023, 12/15/2022, 10/27/2017, Additional history exists GARDASIL-HPV IMMUNIZATION SERIES Aged Out No longer eligible based on patient's age to complete this topic MENINGOCOCCAL (MENACTRA/MENVEO) Aged Out No longer eligible based on patient's age to complete this topic documented as of this encounter Medical Devices Implanted Type Area Top Frame Maker Device Identifier Shelf Expiration Date Model / Serial / Lot Suture [place] Dbl Load 4.75mm - [id number] Implanted:Qty: 1 on 12/01/2019 by Judith Condon, at OR [facility] Right: Shoulder [employer] 07/17/2021 AR-2324BCT -2 / / [id number] Suture [place] Dbl Load 5.5mm - [id number] Implanted:Qty: 1 on 12/01/2019 by Judith Condon, at OR [facility] Right: Shoulder [employer] 09/16/2021 AR-2323BCT -2 / / [id number] documented as of this encounter Visit Diagnoses [...] the patient have Health Care Power of Agricultural Research Director? No Care Teams Solar Panel Installer Relationship Specialty Start Date End Date Velasquez Valencia MD [address] [place] [address] PCP - General Family Medicine 09/09/22 documented as of this encounter
--- OUTSIDE RECORDS SUMMARY | 2024-07-14 04:59 | External Medical Summary | Summary of Care ---
Author Name Unknown Organization [facility] Address [address] [place] [address] Phone [phone] Care Team Providers Care Petroleum Terminal Plant Operator Name Role Phone Velasquez Valencia MD Primary Care Provider +1- [phone] Reason for Referral * Precert (Within 24 hrs (call dept; emergent)) - Pending Review Specialty Diagnoses / Procedures Referred By Contac t Referred To Contact Radiology Diagnoses Elevated troponin Abnormal EKG History of chest pain Procedures NM MYOCARDIAL PERFUSION SPECT MULTIPLE STUDIES Veronica Goodrich MD [address] [place] [address] Referral ID Status Reason Start Date Expiration Date Visits Requested Visits Authorized [id number] Pending Review Precert 01/17/[phone] Encounter Details Date Type Department Care Team (Late st Contact Info) Description 01/17/2024 Telephone [facility] [address] [place] [facility] [place] [address] Veronica Goodrich MD [address] [place] [address] Allergies Active Allergy Reactions Criticality [...] 7.0% ([facility]) Inject 40 units in the [...] IM 11/04/2009 Pneumococcal Conjugate Vacci ne, 20-valent ([id number]) 07/09/2023 Pneumococcal Polysaccharide PPV23 (Pneumovax) 11/03/2015,02/09/2006 Seasonal [...] 01/19/2024 10:30 AM EDT Office Visit Pharmacy, [address] [address] [facility] [address] [place] [address] 02/09/2024 10:45 AM EDT Imaging Radiology [facility] [address] [facility], [address] [place] [address] 02/22/2024 9:17 AM EDT Hospital Encounter OR [facility], Operating Room, [facility] - 4th Floor [address] [place] [address] Marcela Del Valle MD [address] [place] [address] 02/22/2024 9:17 AM EDT - 02/22/2024 10:07 AM EDT Surgery OR [facility], Operating Room, [facility] - 4th Floor [address] [place] [address] Marcela Del Valle MD [address] [place] [address] COLONOSCOPY FLEXIBLE PROXIMAL DIAGNOSTIC 05/08/2024 11:40 AM EDT Office Visit [facility] [address] [place] [address] Velasquez Valencia MD [address] [facility] [place] [id number] Scheduled Orders Name Type Priority Associated Diagnoses [...] 02/09/2006 LUNG CANCER SCREENING - USE SMARTSET [address] Completed 09/19/2023, 12/15/2022, 10/27/2017, Additional history exists GARDASIL-HPV IMMUNIZATION SERIES Aged Out No longer eligible based on patient's age to complete this topic MENINGOCOCCAL (MENACTRA/MENVEO) Aged Out No longer eligible based on patient's age to complete this topic documented as of this encounter Medical Devices Implanted Type Area Lead Quality Technician Device Identifier Shelf Expiration Date Model / Serial / Lot Suture [place] Dbl Load 4.75mm - [id number] Implanted:Qty: 1 on 12/01/2019 by Judith Condon DO at OR [facility] Right: Shoulder [employer] 07/17/2021 AR-2324BCT -2 / / [id number] Suture [place] Dbl Load 5.5mm - [id number] Implanted:Qty: 1 on 12/01/2019 by Judith Condon DO at OR [facility] Right: Shoulder [employer] 09/16/2021 AR-2323BCT -2 / / [id number] documented as of this encounter Visit Diagnoses [...] the patient have Health Care Power of Construction Scheduler? No Care Teams Petroleum Terminal Plant Operator Relationship Specialty Start Date End Date Velasquez Valencia MD [address] [facility] [address] [facility] [address] PCP - General Family Medicine 09/09/22 documented as of this encounter
--- OUTSIDE RECORDS SUMMARY | 2024-07-14 04:59 | External Medical Summary | Summary of Care ---
Author Name Unknown Organization [facility] Address [address] [place] [address] Phone [phone] Care Team Providers Care Manager Motor Name Role Phone Velasquez Valencia MD Primary Care Provider +1- [phone] Reason for Visit * Reason Comments pre-op exam Patient is here for pre op visit Encounter Details Date Type Department Care Team (Latest Contact Info) Description 01/14/2024 11:20 AM EDT Office Visit [address] [address] Veronica Goodrich MD [address] [place] [address] Preoperative general physical examination*; Special screening examination for viral disease; COPD, moderate ([facility]); Need for hepatitis C screening test; Need for vaccination for zoster; DM type 2 causing vascular disease ([facility]); Type 2 diabetes mellitus with hemoglobin A1c goal of less than 7.0% ([facility]); S/P ankle fusion; Tobacco use disorder; Morbid obesity ([facility]); Obstructive sleep apnea; History of DVT (deep vein thrombosis); History of diabetic ulcer of foot; Diabetic polyneuropathy associated with type 2 diabetes mellitus ([facility]); Chronic respiratory failure with hypercapnia ([facility]); Body mass index (BMI) of 40.0 to [...] mRNA, LNP-s, No Pre serve, 2-Dose Series ([employer] [place]) 10/21/2021,03/01/2021,02/07/2021 H1N1 2009 Influenza, IM 11/04/2009 Pneumococcal Conjugate Vacci ne, 20-valent ([id number]) 07/09/2023 Pneumococcal Polysaccharide PPV23 (Pneumovax) 11/03/2015,02/09/2006 Seasonal [...] - 01/14/2024 11:36 AM EDT Subjective: Bry Knightonur Rachel is a 48 year old male. Presents [...] troponin , was seen by cardio in oct , Nov 2023 at hospital Last cardiac stress test in 2021 Currently denies any CP, leg swelling, SOB, palpitation and BP stable He was supposed to get cardiac stress test in nov due to chest pain but with admission, couldnt getit done Known hx of resp failure, COPD, smoking , but currently O2 Sat 96 %, does not use O2 Known severe DAMION , morbid obesity, was not using CPAP recently but has CPAP at home EKG today , reviewed PHM: Patient Active Problem List Diagnosis Code Morbid obesity ([facility]) E66.01 Type 2 diabetes mellitus with hemoglobin A1c goal of less than 7.0% ([facility]) E11.9 Gastroparesis K31.84 IBS (irritable bowel syndrome) K58.9 Diabetic polyneuropathy associated with type 2 diabetes mellitus ([facility]) E11.42 Hyperlipidemia with target LDL less than 70 E78.5 Tobacco use disorder F17.200 History of DVT (deep vein thrombosis) Z86.718 Combined arterial insufficiency and corporo-venous occlusive erectile dysfunction N52.03 DDD (degenerative disc disease), cervical M50.30 Cervical spinal stenosis M48.02 Gastroesophageal reflux disease without esophagitis K21.9 DM type 2 causing vascular disease ([facility]) E11.59 Precordial pain R07.2 Chronic respiratory failure with hypercapnia ([facility]) J96.12 Lumbar disc herniation M51.26 Body mass index (BMI) of 40.0 to 44.9 in adult ([facility]) Z68.41 Obstructive sleep apnea G47.33 Restrictive lung disease secondary to obesity J98.4, E66.9 Neuropathy G62.9 COPD, moderate ([facility]) J44.9 Cortical age-related cataract, right eye H25.011 [...] TAKE 1 TABLET BY MOUTH TWICE A [id number] Tablet 1 No current facility-administered medications for this visit. 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 Current use of insulin ([facility]) 09/13/2017 DDD (degenerative disc disease), cervical 07/12/2019 Diabetes mellitus type 2, insulin dependent ([facility]) 07/05/2017 Diabetic polyneuropathy associated with type 2 diabetes mellitus ([facility]) 07/24/2016 Displacement of lumbar intervertebral disc without myelopathy DM type 2, goal: symptom mgmt ([facility]) 09/13/2017 DM type 2, not at goal ([facility]) Dyslipidemia, goal LDL below 70 07/24/2016 Gastroesophageal reflux disease without esophagitis 05/07/2020 Gastroparesis 08/27/2015 GERD (gastroesophageal reflux disease) History of DVT (deep vein thrombosis) 04/19/2019 HTN, goal below 140/90 12/23/2015 Per HTN Protocol #27. HTN, goal: symptom mgmt only 09/13/2017 IBS (irritable bowel syndrome) 08/27/2015 Intellectual disability 10/25/2019 Major depressive disorder, recurrent, severe without psychotic features ([facility]) 12/22/2016 Obesity, Class II, BMI 35-39.9, isolated (see actual BMI) 04/19/2019 OTHER osseochondrosis ankle Primary localized osteoarthrosis, lower leg Sleep apnea, obstructive Tobacco use disorder 12/22/2016 Type 2 diabetes mellitus with hemoglobin A1c goal of less than 8.0% ([facility]) 07/05/2017 Past Surgical History: Procedure Laterality Date ARTHO,SHOUL,W/ROTATOR CUFF Right 12/01/2019 ARTHROSCOPY SHOULDER ROTATOR CUFF performed by Judith Condon DO at OR [facility] COLONOSCOPY, DIAGNOSTIC (RECTUM) 04/18/2015 adenomatous polyp, [...] performed by Dario Nails DO at OR [facility] KNEE ARTHROSCOPY, DIAGNOSTIC l knee REMOVAL OF TONSILS, UNDER AGE 10 SHOULDER ARTHROSCOPY, BICEPS TENODESIS Right 12/01/2019 ARTHROSCOPY SHOULDER BICEP TENODESIS performed by Judith Condon DO at OR [facility] SHOULDER ARTHROSCOPY/DECOMPRESSION Right 12/01/2019 ARTHROSCOPY SHOULDER SUBACROMIAL DECOMPRESSION performed by Judith Condon DO at OR [facility] Review of patient's allergies indicates: Allergen [...] EKG, blood tests PLAN: Patient is medically pending with moderate risk conditions for general anesthesia Discussed with pt and , aware of this Will schedule cardiac stress test Will discuss with Dr Camacho too (Z01.818) Preoperative general physical examination (primary encounter diagnosis) Plan: EKG, EKG Blood tests (Z11.59) Special screening examination for viral disease (J44.9) COPD, moderate ([facility]CC) Plan: inhaler (Z11.59) Need for hepatitis C screening test (E11.59) DM type 2 causing vascular disease (HCC) Plan: ALBUMIN / CREATININE RATIO, URINE, ALBUMIN / CREATININE RATIO, URINE (E11.9) Type 2 diabetes mellitus with hemoglobin A1c goal of less than 7.0% (HCC) Plan: insulin , diet (Z98.1) S/P ankle fusion (F17.200) Tobacco use disorder (E66.01) Morbid obesity (HCC) (G47.33) Obstructive sleep apnea Plan: CPAP (Z86.718) History of DVT (deep vein thrombosis) (Z86.31) History of diabetic ulcer of foot (E11.42) Diabetic polyneuropathy associated with type 2 diabetes mellitus (HCC) (J96.12) Chronic respiratory failure with hypercapnia (HCC) Stable (Z68.41) Body mass index (BMI) of 40.0 to 44.9 in adult (HCC) (M14.672) Charcot ankle, left Will need stress test Veronica Goodrich MD documented in this encounter [...] leads Ventricular Rate: 96 Atrial Rate: 96 ME Interval: 140 QRS Duration: 100 QT/QTc: 358/452 ms P-R-T [place]: 45 : 17 : 49 degrees documented [...] Description 01/19/2024 10:30 AM EDT Office Visit [place] [address] [place] [address] [facility] [address] [place] [address] 02/09/2024 10:45 AM EDT Imaging [facility]iology [facility]st [facility] [address] [facility] [place] [address] 02/22/2024 9:17 AM EDT Hospital Encounter OR [facility], Operating Room, [facility] - 4th Floor [address] [place] [address] Marcela Del Valle MD [address] [place] [address] 02/22/2024 9:17 AM EDT - 02/22/2024 10:07 AM EDT Surgery OR [facility], Operating Room, [facility] - 4th Floor [address] [address] Marcela Del Valle MD [address] [place] [address] COLONOSCOPY FLEXIBLE PROXIMAL DIAGNOSTIC 05/08/2024 11:40 AM EDT Office Visit [place] [address] [place] [phone] Velasquez Valencia MD [address] [place] [address] Scheduled Procedures Name Priority Associated Diagnoses Date/Ti [...] 02/09/2006 LUNG CANCER SCREENING - USE SMARTSET [id number] Completed 09/19/2023, 12/15/2022, 10/27/2017, Additional history exists GARDASIL-HPV IMMUNIZATION SERIES Aged Out No longer eligible based on patient's age to complete this topic MENINGOCOCCAL (MENACTRA/MENVEO) Aged Out No longer eligible based on patient's age to complete this topic documented as of this encounter Medical Devices Implanted Type Area Batch Still Operator Device Identifier Shelf Expiration Date Model / Serial / Lot Suture [place] Dbl Load 4.75mm - [id number] Implanted:Qty: 1 on 12/01/2019 by Judith Condon DO at OR [facility] Right: Shoulder [employer] 07/17/2021 AR-2324BCT -2 / / [id number] Suture [place] Dbl Load 5.5mm - [id number] Implanted:Qty: 1 on 12/01/2019 by Judith Condon DO at OR [facility] Right: Shoulder [employer] 09/16/2021 AR-2323BCT -2 / / [id number] documented as of this encounter Procedures Procedure Name Priority Date/Time Associated Diagnosis Comments ALBUMIN / CREATININE RATIO, URINE Routine 01/14/2024 12:16 PM EDT DM type 2 causing vascular disease (HCC) ME ECG ROUTINE ECG W/LEAST 12 LDS I&R ONLY Routine 01/14/2024 12:07 PM EDT Preoperative general physical examination documented in this encounter Results * (ABNORMAL) ALBUMIN / CREATININE RATIO, URINE (01/14/2024 12:16 PM EDT) Albumin, Random Urine 4.11 mg/dL 01/14/2024 10:21 PM EDT [facility] Creatinine, Random Urine 36 mg/dL 01/14/2024 10:21 PM EDT [facility] Albumin / Creatinine Ratio, Urine 114(H) <30 mg/g Creat 01/14/2024 10:21 PM EDT [facility] Urine Urine specimen / Unknown Non-blood Collection / Unknown 01/14/2024 12:16 PM EDT 01/14/2024 12:16 PM EDT Narrative [facility] - 01/14/2024 10:21 PM EDT Normal: <30 mg/g creatinine High: 30-300 mg/g creatinine Very High: >300 mg/g creatinine Nephrotic: >2200 mg/g creatinine Veronica Goodrich MD LAB URINE ORDERABLES Performing Organization Address [facility] Co de Phone Number [facility] [address] [place] [address] * EKG (01/14/2024 12:07 PM EDT) 01/14/2024 [...] leads Ventricular Rate: 96 Atrial Rate: 96 ME Interval: 140 QRS Duration: 100 QT/QTc: 358/452 ms P-R-T [place]: 45 : 17 : 49 degrees Veronica Goodrich MD EKG Performing Organization Address [facility] Co de Phone Number [facility] documented in this encounter Visit [...] the patient have Health Care Power of Aeronautics Commission Director? No Care Teams Manager Motor Relationship Specialty Start Date End Date Velasquez Valencia MD [address] [place] [address] PCP - General Family Medicine 09/09/22 documented as of this encounter
--- OUTSIDE RECORDS SUMMARY | 2024-07-14 04:59 | External Medical Summary | Summary of Care ---
Author Name Unknown Organization [facility] Address [address] [place] [address] Phone [phone] Care Team Providers Care Senior Mainframe Programmer Analyst Name Role Phone Velasquez Valencia MD Primary Care Provider +1- [phone] Reason for Referral * Precert (Within 24 hrs (call dept; emergent)) - Pending Review Specialty Diagnoses / Procedures Referred By Contac t Referred To Contact Radiology Diagnoses Elevated troponin Abnormal EKG History of chest pain Procedures NM MYOCARDIAL PERFUSION SPECT MULTIPLE STUDIES Veronica Goodrich MD [address] [place] [address] Referral ID Status Reason Start Date Expiration Date Visits Requested Visits Authorized [id number] Pending Review Precert 01/17/2024 999 999 Reason for Visit * Reason Onset Date Comments Appointment 01/17/2024 Encounter Details Date Type Department Care Team (Late st Contact Info) Description 01/17/2024 Telephone [facility] [address] [place] [facility] [place] [address] Veronica Goodrich MD [address] [place] [address] Appointment Allergies Active Allergy Reactions [...] ([facility]) Inject 40 units in the morning [...] mRNA, LNP-s, No Pre serve, 2-Dose Series (StayTuned) 10/21/2021,03/01/2021,02/07/2021 H1N1 2009 Influenza, IM 11/04/2009 Pneumococcal Conjugate Vacci ne, 20-valent ([id number]) 07/09/2023 Pneumococcal Polysaccharide PPV23 (Pneumovax) 11/03/2015,02/09/2006 Seasonal [...] 01/19/2024 10:30 AM EDT Office Visit Pharmacy, [place] [address] [place] [address] [facility] [address] [place] [address] 02/09/2024 10:45 AM EDT Imaging Radiology [facility] 1st [facility] [address] [facility] [place] [address] 02/22/2024 9:17 AM EDT Hospital Encounter [facility], Operating Room, [facility] - 4th Floor [address] [place] [address] Marcela Del Valle MD [address] [facility] [place] [address] 02/22/2024 9:17 AM EDT - 02/22/2024 10:07 AM EDT Surgery [facility], Operating Room, [facility] - 4th Floor [address] [place] [address] Marcela Del Valle MD [address] [place] [address] COLONOSCOPY FLEXIBLE PROXIMAL DIAGNOSTIC 05/08/2024 11:40 AM EDT Office Visit [facility] [address] [place] [address] Velasquez Valencia MD [address] [place] [address] Scheduled Orders Name Type Priority [...] 02/07/2021 DISCUSS TOBACCO CESSATION (REFER TO SMARTSET #7401) 10/16/2023 10/16/2022 Zoster Vaccines (1 of 2) [...] 02/09/2006 LUNG CANCER SCREENING - USE SMARTSET 70770 Completed 09/19/2023, 12/15/2022, 10/27/2017, Additional history exists GARDASIL-HPV IMMUNIZATION SERIES Aged Out No longer eligible based on patient's age to complete this topic MENINGOCOCCAL (MENACTRA/MENVEO) Aged Out No longer eligible based on patient's age to complete this topic documented as of this encounter Medical Devices Implanted Type Area Aerial Erector Device Identifier Shelf Expiration Date Model / Serial / Lot Suture [place] Dbl Load 4.75mm - [id number] Implanted:Qty: 1 on 12/01/2019 by Judith Condon DO at OR [facility] Right: Shoulder [employer] 07/17/2021 AR-2324BCT -2 / / [id number] Suture [place] Dbl Load 5.5mm - [id number] Implanted:Qty: 1 on 12/01/2019 by Judith Condon DO at OR [facility] Right: Shoulder [employer] 09/16/2021 AR-2323BCT -2 / / [id number] documented as of this encounter Visit Diagnoses [...] the patient have Health Care Power of Foam Tank Laminator? No Care Teams Senior Mainframe Programmer Analyst Relationship Specialty Start Date End Date Velasquez Valencia MD [address] [place] [address] PCP - General Family Medicine 09/09/22 documented as of this encounter
--- OUTSIDE RECORDS SUMMARY | 2024-07-14 06:39 | External Medical Summary | Summary of Care ---
Author Name Unknown Organization [facility] Address [address] [facility] [address] Phone [phone] Care Team Providers Care Bracelet And Brooch Maker Name Role Phone Velasquez Valencia MD Primary Care Provider +1- [phone] Reason for Visit * Reason Onset Date Comments Advice 07/13/2024 Encounter Details Date Type Department Care Team (Late st Contact Info) Description 07/13/2024 Telephone [facility] [address] [place] [address] Velasquez Valencia MD [address] [place] [address] Advice Allergies Active Allergy Reactions [...] over 140 [see chart at bottom of [facility] visit 05/09/24], Reported on 05/09/2024 [...] Respimat 2.5 MCG/ACT Inhalation Aerosol Solution (Tiotropium [place] Monohydrate) Inhale 2 Puffs by mouth in [...] 05/25/2023 Restrictive lung disease secondary to obesity 04 /09/2023 Obstructive sleep apnea 11/02/2022 Lumbar disc herniation [...] mRNA, LNP-s, No Pre serve, 2-Dose Series (MoneyMan) 10/21/2021,03/01/2021,02/07/2021 H1N1 2009 Influenza, IM 11/04/2009 Pneumococcal Conjugate Vacci ne, 20-valent ([id number]) 07/09/2023 Pneumococcal Polysaccharide PPV23 (Pneumovax) 11/03/2015,02/09/2006 Seasonal [...] encounter Miscellaneous Notes * Telephone Encounter - Samantha Sanchez RN - 07/13/2024 5:24 PM EDT This is a nurse triage encounter. If additional action is needed, do not route to nurse triage. Please route encounter to the applicable clinic pool. Call was dropped during report from DAMION Called pt on desired phone number of [phone] Left message to call Ronnie akbar at [phone] Advised if medical emergency to call 911 orgo to ED Samantha Sanchez, RN * Telephone Encounter - Marlen Pedersen OSA - 07/13/2024 5:08 PM EDT What is the reason for call? Pt is calling in with breathing issues and is all swollen retaining fluid, pain in legs and back. Declined ER and Urgent care. Pt wants to only see pcp What Clinic is the patient trying to reach? [facility]: [place] - Call Type: Hot Call- warm transfer call to the digital publishing specialist EMERGENT line- [phone] Call was warm transferred to [facility] at the digital publishing specialist line. documented in this encounter Plan of Treatment Upcoming Encounters Date Type Department Care Team (Latest Contact Info) Description 07/18/2024 10:30 AM EDT Office Visit Pharmacy, [address] [address] [facility] [address] [place] [address] 08/02/2024 11:12 AM EDT Hospital Encounter OR [facility], Operating Room, [facility] - 4th [facility] [address] [facility] [phone] Belen Jones, DO [address] [place] [address] 08/02/2024 11:12 AM EDT - 08/02/2024 11:56 AM EDT Surgery OR [facility], Operating Room, [facility] - 4th [facility] [address] [facility] [place] [phone] Belen Jones, DO [address] [place] [address] ESOPHAGOGASTRODUODENOSCOPY (EGD), FLEXIBLE, TRANSORAL, ENDOSCOPIC ULTRASOUND 08/18/2024 11:00 AM EDT Office Visit [facility] [address] [facility] [phone] Velasquez Valencia MD [address] [place] [address] 07/09/2025 10:00 AM EDT Office Visit Pulmonary Medicine, [facility] [address] [place] [address] Vishal Wallace MD [address] [place] [address] Scheduled Procedures Name Priority Associated Diagnoses Date/Ti [...] this encounter Medical Devices Implanted Type Area Schedule Manager Device Identifier Shelf Expiration Date Model / Serial / Lot Suture [place] Dbl Load 4.75mm - [id number] Implanted:Qty: 1 on 12/01/2019 by Judith Condon, DO at OR [facility] Right: Shoulder [employer] 07/17/2021 AR-2324BCT -2 / / [id number] Suture [place] Dbl Load 5.5mm - [id number] Implanted:Qty: 1 on 12/01/2019 by Judith Condon, at OR [facility] Right: Shoulder [employer] 09/16/2021 AR-2323BCT -2 / / [id number] documented as of this encounter Advance Directives [...] Directives occurred with: Not Discussed Care Teams Bracelet And Brooch Maker Relationship Specialty Start Date End Date Velasquez Valencia MD [address] [place] [address] PCP - General Family Medicine 09/09/22 documented as of this encounter
[2024-07-14 08:09] LABS: Basophils # (auto) 0.06 K/uL (0.00-0.20); Basophils % (auto) 0.8 %; Eosinophils # (auto) 0.43 K/uL (0.00-0.50); Eosinophils % (auto) 5.5 %; Hematocrit (blood only) 35.4 % (42.0-52.0); Hemoglobin 11.5 g/dl (14.0-18.0); Immature Granulocytes # (auto) 0.15 K/uL (0.01-0.20); Immature Granulocytes % (auto) 1.9 %; Lymphocytes # (auto) 1.99 K/uL (1.20-3.40); Lymphocytes % (auto) 25.7 %; Mean Corpuscular Hgb Conc 32.5 g/dL (32.0-36.0); Mean Corpuscular Volume 83.1 fL (80.0-100.0); Mean Platelet Volume 9.5 fL (9.4-12.4); Monocytes # (auto) 0.87 K/uL (0.11-0.59); Monocytes % (auto) 11.2 %; Neutrophils # (auto) 4.25 K/uL (1.40-6.50); Neutrophils % (auto) 54.9 %; Platelet Count 233 K/uL (130-400); RDW Coefficient of Variation 14.9 % (11.5-14.5); RDW Standard Deviation 44.8 fL (36.4-46.3); Red Blood Count 4.26 M/uL (4.70-6.10); White Blood Count 7.75 K/ul (4.8-10.8)
[2024-07-14 09:09] LABS: BUN Creatinine Ratio 24.5 (10-20); Calcium 9.3 mg/dl (8.6-10.3); Creatinine Clr Calc Pharmacy 150.9 ml/min; Est GFR (African American) 103.8 ml/min; Est GFR (Non-African American) 89.5 ml/min; Magnesium 1.8 mg/dl (1.7-2.4); Potassium 4.2 mmol/L (3.5-5.1)
[2024-07-14] MEDS: ENOXAPARIN INJ 40 MG/0.4 ML SYR SQ SCH (09:22)
[2024-07-14] MEDS: ASPIRIN 81 MG ECTAB PO SCH (09:23)
[2024-07-14] MEDS: METOCLOPRAMIDE HCL 10 MG TABLET PO SCH (09:23)
[2024-07-14] MEDS: ATORVASTATIN 20 MG TAB PO SCH (09:24)
[2024-07-14] MEDS: PANTOprazole 40 MG TAB PO SCH (09:27)
--- NOTE | 2024-07-14 09:33 | Cardiology Consultation ---
Date of Consultation July 14, 2024 Assessment & Plan (1) Acute and chronic respiratory failure with hypercapnia: (2) Volume overload: (3) Sleep apnea: Plan Complex 48-year-old male presenting with acute on chronic volume overload, multifactorial in etiology - Acute on chronic respiratory failure with hypercapnia - Acute decompensated diastolic congestive heart failure, HFpEF - Uncontrolled hypertension - Untreated obstructive sleep apnea Recommendations: Discontinue Pioglitazone (Actos) as use is not recommended in patients with symptomatic heart failure Utilize IV furosemide Resume spironolactone at 25 mg/day Discontinue HCTZ, transitioning to oral loop diuretic therapy prior to discharge Discontinue and avoid all NSAIDs except for aspirin 81 mg/day Increase metoprolol to 100 mg twice per day for additional heart rate and blood pressure control Resume losartan 100 mg/day for blood pressure and nephroprotection. Continue statin CPAP therapy encouraged Restriction sodium to less than 2000 mg/day. Strict I/O's, daily weights, daily metabolic panel. Supervising Physician Co-Signing Physician Notes I have personally performed a history and physical examination on the patient. I have reviewed the advance practitioner's documentation, and I agree with, and take responsibility for the plan of care. 48-year-old male with acute on chronic heart failure with preserved ejection f raction, acute on chronic respiratory failure with hypercapnea, and uncontrolled hypertension. Discontinue Actos. Initiate IV diuresis with furosemide 40 mg twice daily. Resume Aldactone 25 mg and losartan 100mg daily. Monitor fluid balance, daily weight, GFR. Metoprolol titrated to 100 mg twice daily. Avoid NSAIDs. All questions answered to patient's satisfaction. Black Mayfield DO [facility] History of Present Illness Reason for Consultation: Congestive heart failure Requesting Physician: Dr. Brown Attending Physician: Dr. Ashley Reese MD History of Present Illness Mr. Bry Akhtar is a complex 48-year-old male who presented to [facility] emergency room on , July 13, 2024 with complaints of increased shortness of breath, worsening fluid retention, and weight gain. Cardiology consultation requested due to congestive heart failure, volume overload. Patient notes having a complex year thus far. In September he was admitted with acute complicated bronchitis and atypical chest discomfort, hypertensive urgency, likely component of hypoventilation syndrome. In October he underwent left ankle fusion for new diagnosis of Charcot foot. In October he was admitted to [facility] with nausea, vomiting, and abdominal pain felt to be secondary to severe gastroparesis complicated by uncontrolled hyperten melony, elevated troponin managed medically. In November he was admitted to [facility] with possible acute pancreatitis. In January he underwent removal of left ankle hardware. In patient was initially admitted to [facility] with worsening left ankle pain, swelling, erythema, and bleeding. Patient transferred to [facility] where he underwent left below knee amputation. In March 2024 he was admitted to [facility] with possible pancreatitis. He has had multiple interim ER evaluations with abdominal pain and constipation. 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 Cephalosporins Allergy Unknown Unknown Verified 07/13/24 21:47 empagliflozin AdvReac Unknown put me Verified 07/13/24 21:47 [From Jardiance] into ketoacidosis? NSAIDS (Non-Steroidal AdvReac Unknown use with Verified 07/13/24 21:47 Anti-Inflamma caution : hx esophagus damage Home Medications Medication Instructions Recorded Confirmed Type insulin aspart U-100 100 unit/mL 18 unit subcut TID 06/09/19 07/13/24 History (3 mL) subcutaneous pen (Novolog FlexPen U-100 Insulin aspart) dicyclomine 10 mg capsule 10 mg PO QID PRN Diarrhea 05/01/20 07/13/24 History famotidine 20 mg tablet 20 mg PO HS 07/13/20 07/13/24 History pantoprazole 40 mg tablet,delayed 40 mg PO BID 02/25/21 07/13/24 History release metformin 500 mg tablet 1,000 mg PO BID 08/26/21 07/13/24 History cyclobenzaprine 10 mg tablet 10 mg PO HS muscle spasms 09/06/22 07/13/24 History gabapentin 100 mg capsule See Rx Instructions .Route .COMPLEX 09/06/22 07/13/24 History insulin glargine 100 unit/mL (3 40 unit subcut BID 09/06/22 07/13/24 History mL) subcutaneous pen (Lantus Solostar U-100 Insulin) metoclopramide HCl 10 mg tablet 10 mg PO TID 09/06/22 07/13/24 History budesonide-formoterol HFA 80 2 puff inhalation BID 02/08/23 07/13/24 History mcg-4.5 mcg/actuation aerosol inhaler (Symbicort) aspirin 81 mg tablet,delayed 81 mg PO QAM #30 tabs 09/22/23 07/13/24 Rx release atorvastatin 20 mg tablet 20 mg PO QAM #30 tabs 09/22/23 07/13/24 Rx hydrochlorothiazide 25 mg tablet 25 mg PO QAM #30 tabs 09/22/23 07/13/24 Rx losartan 100 mg tablet 100 mg PO DAILY #30 tabs 09/22/23 07/13/24 Rx metoprolol succinate 100 mg 100 mg PO QAM #30 tabs 09/22/23 07/13/24 Rx tablet,extended release 24 hr (Toprol XL) metoprolol succinate 50 mg 50 mg PO QPM #30 tabs 09/22/23 07/13/24 Rx tablet,extended release 24 hr spironolactone 25 mg tablet 25 mg PO QAM #30 tabs 09/22/23 07/13/24 Rx albuterol sulfate 90 mcg/actuation 2 inh inhalation Q6H PRN 10/15/23 07/13/24 H istory aerosol inhaler WHEEZING/SOB ibuprofen 125 mg-acetaminophen 250 3 tab PO BID 10/15/23 07/13/24 History mg tablet (Dual Action Pain Reliever) docusate sodium 100 mg capsule 100 mg PO BID PRN Constipation #60 10/25/23 07/13/24 Rx (Col-Rite) caps polyethylene glycol 3350 17 17 g PO DAILY PRN constipation 10/26/23 07/13/24 Rx gram/dose oral powder (Miralax) #119 grams naloxegol 25 mg tablet (Movantik) 25 mg PO DAILY 07/13/24 07/13/24 History torsemide 10 mg tablet 10 mg PO DAILY 07/13/24 07/13/24 History Patient History Medical History Arthritis Low magnesium level History of RSV infection & flu a few months ago. Tachycardia chronic high heart rate - unknown etiology - a few months ago increased dose of metoprolol. Rhinovirus dx May 23 [facility] & another illness dx - ? name of /antibiotic and inhalers for. feeling better: only symptom : sore throat. COPD (chronic obstructive pulmonary disease) ? dx of Peripheral neuropathy Diabetes mellitus, type 2 Hypertension Tobacco use Restrictive lung disease Elevated liver function tests History of DVT (deep vein thrombosis) "years ago">no known cause Tussive syncope "occurred only one time, no recent issues" Esophagitis Osteoarthritis Hx of pancreatitis resolved GERD (gastroesophageal reflux disease) Cardiac murmur A CHILD Erectile dysfunction MRSA (methicillin resistant Staphylococcus aureus) carrier over 2 yrs ago>"not sure where it was" Intellectual disability Obstructive sleep apnea cpap Obesity IBS (irritable bowel syndrome) History of ventricular tachycardia "nonsustained" Surgical History History of appendectomy 02/10/2023 History of reduction of nasal fracture 09/25/21-Dr. Gracia Status post incision and drainage LLE History of shoulder surgery right-2019 H/O foot surgery LEFT-2018 History of arthroscopy LEFT [id number] History of esophagogastroduodenoscopy (EGD) History of colonoscopy with most recent attempt: failed prep. Told would need a 2 day prep prior to colonoscopy in Sep 2023. History of tooth extraction History of tonsillectomy and adenoidectomy 1979 Family History Brother Family history of diabetes mellitus Environmental allergies Asthma Mother Family history of diabetes mellitus Hypertension Environmental allergies Father Family history of diabetes mellitus Hypertension Heart disease Grandfather (Paternal) Lung cancer smoker Aunt Bleeding disorder Other No family history of adverse response to anesthesia Social History Smoking Status: Current every day smoker Tobacco Type: Cigarettes Age Started Using Tobacco: 14; Cigarettes Per Day: 1 pack; Second Hand Exposure: No; Do You Dip or Chew Tobacco: No; Hx Alcohol Use: Yes Alcohol type: beer Alcohol Intake Frequency: Monthly or Less Alcohol Intake Frequency Comment: seldom, a couple times per year if that per pt Hx Substance Use: No Preferred Language: [place] Communication Ability: Effective Cable Tv Installer Required: No Beliefs That Will Affect Care: None marital status: / marital status details: single at this time Current Living Situation: Significant Other Current Living Situation Comment: with Ni and dog, in home, 1 JING current occupational status: employed 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 Physical Exam Physical Exam: General: A&Ox3. NAD. HENT: Normocephalic. Atraumatic. Eyes: PER. Conjunctiva pink, sclera clear. Neck: I could not appreciate his neck veins. No carotid bruits. Heart: Distant heart sounds. RRR, 100 bpm. No murmur or rub appreciated. Lungs: Clear to auscultation. Abdomen: Large. +BS. Soft. Nontender. No masses or organomegaly. Extremities: 1-2+ diffuse edema. No cyanosis. No clubbing Limited neurological examination is without focal deficits. Pulses: radial=2/4, posterior tibial=1/4 on the right. BKA on the left. Results & Data Vital Signs (Past 12 Hours) Vital Signs Temp Pulse Pulse Resp BP BP Pulse Ox 07/14/24 09:22 94 H 24 165/89 H 95 07/14/24 08:00 07/14/24 05:36 87 16 92 07/14/24 04:00 07/14/24 03:15 36.7 C 98 H 20 166/80 H 96 07/14/24 03:10 07/14/24 02:35 99 H 07/14/24 02:31 99 H 18 93 07/14/24 00:44 22 94 07/14/24 00:44 95 H 22 94 07/14/24 00:30 96 H 20 152/87 H 95 07/13/24 23:35 88 L 07/13/24 23:30 99 H 20 159/92 H 90 07/13/24 23:24 100 H 22 174/83 H 92 07/13/24 22:54 21 94 07/13/24 22:00 101 H 24 191/116 H 92 07/13/24 22:00 103 H 20 191/116 H 93 Pulse Ox O2 Del Method O2 Del Method O2 Flow Rate O2 Flow Rate 07/14/24 09:22 Nasal Cannula 2 07/14/24 08:00 96 Nasal Cannula 2 07/14/24 05:36 07/14/24 04:00 92 CPAP 07/14/24 03:15 Nasal Cannula 2 07/14/24 03:10 Nasal Cannula 2 07/14/24 02:35 07/14/24 02:31 07/14/24 00:44 Nasal Cannula 2 07/14/24 00:44 Nasal Cannula 2 07/14/24 00:30 Nasal Cannula 2 07/13/24 23:35 Nasal Cannula 0 07/13/24 23:30 Room Air 07/13/24 23:24 Room Air 07/13/24 22:54 Room Air 07/13/24 22:00 Room Air 07/13/24 22:00 Room Air Laboratory Results Cardiac Enzymes 07/13/24 07/14/24 Range/Units 18:30 00:44 Troponin I High Sens 8.4 12.4 D (0-20) pg/ml B-Natriuretic Peptide 70 (0-100) pg/ml Coagulation 07/13/24 Range/Units 18:30 PT 10.0 (9.0-12.0) Seconds APTT 27 (21-31) Seconds B-Natriuretic Peptide 70 (0-100) pg/ml CBC 07/13/24 07/14/24 Range/Units 18:30 07:36 WBC 6.79 7.75 (4.8-10.8) K/ul RBC 4.08 L 4.26 L (4.70-6.10) M/uL Hgb 10.9 L 11.5 L (14.0-18.0) g/dl Hct 34.2 L 35.4 L (42.0-52.0) % Plt Count 234 233 (130-400) K/uL Neut # (Auto) 3.74 4.25 (1.40-6.50) K/uL Lymph # (Auto) 1.74 1.99 (1.20-3.40) K/uL [place] # (Auto) 0.73 H 0.87 H (0.11-0.59) K/uL Eos # (Auto) 0.37 0.43 (0.00-0.50) K/uL Baso # (Auto) 0.06 0.06 (0.00-0.20) K/uL Comprehensive Metabolic Panel 07/13/24 07/14/24 Range/Units 18:30 07:36 Sodium 133 L 137 (136-145) mmol/L Potassium 5.0 4.2 (3.5-5.1) mmol/L Chloride 96 L 97 L (98-107) mmol/L Carbon Dioxide 27 30 (21-32) mmol/L BUN 25 H 24 H (6-23) mg/dl Creatinine 1.19 0.98 (0.6-1.4) mg/dl Glucose 507 H* 252 H (70-99(Fasting)) mg/dl Calcium 9.0 9.3 (8.6-10.3) mg/dl Intake and Output 07/13/24 07/14/24 07/14/24 22:59 06:59 14:59 Intake Total 1400 / 1400 Output Total 2300 / 2300 Balance -900 / -900 Intake: IV 200 / 200 Albumin 25% 25 gm In 100 ml @ 100 / 100 50 mls/hr IV ONE ONE Rx#: [id number] Magnesium Sulfate / D5w 1 gm In 100 / 100 100 ml @ 50 mls/hr IV ONE ONE Rx#:[id number] Oral 1200 / 1200 Output: Urine 2300 / 2300 Other: # Unmeasured Voids 3 Weight 169 kg Weight Measurement Method Built in [facility] Diagnostic Findings Telemetry: Sinus/sinus tachycardia EKG: Normal sinus rhythm at 100 bpm. Incomplete right bundle branch block. Possible old anterior infarct. QTc 454 ms. High-sensitivity troponin: 8.4 -> 12.4 (3) Sleep apnea Sleep apnea type: unspecified type Qualified Code(s): G47.30 - Sleep apnea, unspecified
[2024-07-14] MEDS: SPIRONOLACTONE 25 MG TAB PO SCH (11:29)
[2024-07-14] MEDS: LOSARTAN POTASSIUM 50 MG TAB PO SCH (11:29)
--- NOTE | 2024-07-14 12:10 | Hospitalist Progress Note ---
Date of Service July 14, 2024 Assessment & Plan (1) Acute and chronic respiratory failure with hypercapnia: Plan: 48-year-old male with PMH of HTN, HLD, COPD/RLD, DAMION [CPAP noncompliance], PE/DVT status post anticoagulation, T2DM insulin requiring, NAFLD, GERD, gastroparesis, pancreatitis, chronic anemia [baseline hemoglobin of 10-11], morbid obesity, intellectual disability, ongoing tobacco abuse who presented to the ED with complaint of increasing abdominal tightness/fullness/pants no longer fitting him/heavy breathing without cough symptoms going on for a while prior to arrival. He denied chest pain. He is being managed for the following: Likely right-sided heart failure, uncontrolled hypertension Rule out pulmonary hypertension given history COPD/RLD, DAMION/CPAP noncompliance Patient comes in with complaint suggestive of fluid overload. Admitting CTA chest negative for PE, negative for airspace consolidation, negative for pleural effusion or pneumothorax. Admitting CTAP with diffuse soft tissue edema suggesting anasarca. CXR w/ no pul edema. Troponin x 2 negative, Follow-up echo. c/w diuresis Strict I/Os, daily weights, CHF education, fluid restriction Cardio on board, appreciate recs. DC pioglitazone. c/w metoprolol (increased dose), losartan and statin Wean down O2 as babak. Additional counseling given regarding adverse effects of NSAIDs blood pressure and fluid status. Monitor and replete electrolytes. DAMION: Patient counseled need to comply with CPAP and follow-up with Sleep Medicine. Tobacco abuse: Nicotine patch as needed Other chronic medical conditions: Continue with/resume home meds as when able. hyperlipidemia, on statin Rx PE/DVT status post anticoagulation DM2 insulin requiring, suboptimal control as of recent hemoglobin A1c of 8.6 last April 2024 hx NAFLD hx gastroparesis chronic anemia, hemoglobin at baseline morbid obesity intellectual disability as per records ongoing tobacco abuse DVT prophylaxis. Lovenox subcu Full code Text document was generated using [employer] voice recognition software. It may contain grammatical or spelling errors. Kindly contact undersigned for clarification of any documentation item in question. Admission and Anticipated Discharge Date Admission Date: July 13, 2024 Subjective Patient was seen and examined at bedside. Patient was lying in bed, on 2 L oxygen via nasal cannula, NAD, resting comfortably. Patient reports eating okay, moving bowels okay. Patient denies fever/cough/sore throat/chest pain. Patient reports heavy breathing/shortness of breath with activity on and off for a long time. Physical Exam Physical Exam: GENERAL: Comfortable, pleasant, morbidly obese, no respiratory distress SKIN: Pallor, warm HEENT: Alopecia, pale palpebral conjunctivae, no ptosis, moist buccal mucosa, nasal cannula in place NECK : Supple, short neck, no tenderness CHEST : Decreased breath sounds, no tenderness HEART : RRR, no obvious murmurs ABDOMEN: Some distention, nontender EXTREMITIES : RLE 2+ edema without tenderness, left BKA stump NEUROLOGIC : Coherent, no facial asymmetry, no other gross focality Results & Data Results & Data Vital Signs (Past 12 Hours) Vital Signs Temp Pulse Pulse Resp BP Pulse Ox Pulse Ox 07/14/24 11:31 93 H 24 167/76 H 96 07/14/24 09:22 94 H 24 165/89 H 95 07/14/24 08:00 96 07/14/24 05:36 87 16 92 07/14/24 04:00 92 07/14/24 03:15 36.7 C 98 H 20 166/80 H 96 07/14/24 03:10 07/14/24 02:35 99 H 07/14/24 02:31 99 H 18 93 07/14/24 00:44 22 94 07/14/24 00:44 95 H 22 94 07/14/24 00:30 96 H 20 152/87 H 95 O2 Del Method O2 Del Method O2 Flow Rate O2 Flow Rate 07/14/24 11:31 Nasal Cannula 2 07/14/24 09:22 Nasal Cannula 2 07/14/24 08:00 Nasal Cannula 2 07/14/24 05:36 07/14/24 04:00 CPAP 07/14/24 03:15 Nasal Cannula 2 07/14/24 03:10 Nasal Cannula 2 07/14/24 02:35 07/14/24 02:31 07/14/24 00:44 Nasal Cannula 2 07/14/24 00:44 Nasal Cannula 2 07/14/24 00:30 Nasal Cannula 2
[2024-07-14] MEDS: oxyCODONE HCL IR 5 MG TAB (IMMEDIATE RELEASE) PO PRN (14:31)
[2024-07-14] MEDS: FUROSEMIDE 40 MG/4 ML VIAL IV SCH (17:22)
[2024-07-14] MEDS: CYCLOBENZAPRINE HCL 10 MG TAB PO SCH (21:24)
[2024-07-14] MEDS: FAMOTIDINE 20 MG TAB PO SCH (22:01)
--- NOTE | 2024-07-14 22:30 | Electrocardiogram Report ---
Test Reason : Blood Pressure : */* mmHG Vent. Rate : 100 BPM Atrial Rate : 100 BPM P-R Int : 142 ms QRS Dur : 92 ms QT Int : 352 ms P-R-T Axes : 34 -10 54 degrees QTcB Int : 454 ms Normal sinus rhythm Incomplete right bundle branch block Possible Anterior infarct (cited on or before 23-Dec-2023) Abnormal ECG When compared with ECG of 23-Dec-2023 12:24, No significant change was found Confirmed by Brandin Guerra ([id number] on 07/14/2024 10:29:54 PM Referred By: REFERRED SELF Confirmed By: Brandin Guerra
[2024-07-15 07:35] LABS: Hematocrit (blood only) 39.2 % (42.0-52.0); Hemoglobin 12.2 g/dl (14.0-18.0); Mean Corpuscular Hemoglobin 26.5 pg (25.0-34.0); Mean Corpuscular Hgb Conc 31.1 g/dL (32.0-36.0); Mean Platelet Volume 9.4 fL (9.4-12.4); Platelet Count 244 K/uL (130-400); RDW Coefficient of Variation 14.8 % (11.5-14.5); RDW Standard Deviation 45.4 fL (36.4-46.3); Red Blood Count 4.61 M/uL (4.70-6.10); White Blood Count 7.29 K/ul (4.8-10.8)
[2024-07-15 08:04] LABS: Calcium 9.5 mg/dl (8.6-10.3); Creatinine Clr Calc Pharmacy 158.8 ml/min; Est GFR (African American) 110.6 ml/min; Est GFR (Non-African American) 95.4 ml/min; Magnesium 1.8 mg/dl (1.7-2.4); Phosphorus 4.5 mg/dl (2.5-4.9); Potassium 4.3 mmol/L (3.5-5.1)
--- NOTE | 2024-07-15 08:49 | Hospitalist Progress Note ---
Date of Service July 15, 2024 Assessment & Plan (1) Acute and chronic respiratory failure with hypercapnia: Plan: 48-year-old male with PMH of HTN, HLD, COPD/RLD, DAMION [CPAP noncompliance], PE/DVT status post anticoagulation, T2DM insulin requiring, NAFLD, GERD, gastroparesis, pancreatitis, chronic anemia [baseline hemoglobin of 10-11], morbid obesity, intellectual disability, ongoing tobacco abuse who presented to the ED with complaint of increasing abdominal tightness/fullness/pants no longer fitting him/heavy breathing without cough symptoms going on for a while prior to arrival. He denied chest pain. He is being managed for the following: Acute on chronic diastolic heart failure Patient comes in with complaint suggestive of fluid overload. Admitting CTA chest negative for PE, negative for airspace consolidation, negative for pleural effusion or pneumothorax. Admitting CTAP with diffuse soft tissue edema suggesting anasarca. CXR w/ no pul edema. c/w diuresis with iv lasix. Plan to transition to PO tomorrow am Strict I/Os, daily weights, CHF education, fluid restriction DC pioglitazone. c/w metoprolol (increased dose), losartan and statin. spironolactone added Wean down O2 as tolerated Additional counseling given regarding adverse effects of NSAIDs blood pressure and fluid status. Monitor and replete electrolytes. DAMION: Patient counseled need to comply with CPAP and follow-up with Sleep Medicine. Tobacco abuse: Nicotine patch as needed Other chronic medical conditions: Continue with/resume home meds as when able. hyperlipidemia, on statin Rx PE/DVT status post anticoagulation DM2 insulin requiring, suboptimal control as of recent hemoglobin A1c of 8.6 last April 2024 hx NAFLD hx gastroparesis chronic anemia, hemoglobin at baseline morbid obesity intellectual disability as per records ongoing tobacco use DVT prophylaxis. Lovenox subcu Full code Time spent evaluating patient, direct bedside care, chart review, placing orders, interpretation of diagnostic studies, discussion with consultants, patient, and family members, as well as other required patient management activities is 50 minutes Please note the above document was generated using voice recognition software. It may contain grammatical, syntax or spelling errors. Any formal questions or concerns about the content, text or information contained within the body of this dictation should be directly addressed to the provider for clarification Admission and Anticipated Discharge Date Admission Date: July 13, 2024 Subjective Patient seen and examined at bedside. Comfortable; not in distress. Denies fever, chills, chest pain, shortness of breath, abdominal pain or urinary symptoms. No significant overnight events Review of Systems Review of Systems: All systems reviewed & are unremarkable except as noted in Subjective Physical Exam Physical Exam: GENERAL: Comfortable, pleasant, morbidly obese, no respiratory distress NECK : Supple, short neck, no tenderness CHEST : Decreased breath sounds at bases, no tenderness HEART : RRR, no obvious murmurs ABDOMEN: Some distention, nontender EXTREMITIES : RLE 1+ edema without tenderness, left BKA stump NEUROLOGIC : Coherent, no facial asymmetry, no other gross focality Results & Data Results & Data Vital Signs (Past 12 Hours) Vital Signs Temp Pulse Pulse Resp BP Pulse Ox O2 Del Method 07/15/24 07:56 35.8 C L 90 17 161/80 H 98 BiPAP 07/15/24 07:18 90 07/15/24 05:53 91 H 16 96 07/15/24 05:47 90 18 92 07/15/24 03:43 91 H 07/15/24 02:59 36.9 C 92 H 23 160/56 H 95 BiPAP 07/14/24 23:49 36.8 C 95 H 17 148/63 H 94 CPAP 07/14/24 21:28 Nasal Cannula 07/14/24 21:00 92 H 18 93 O2 Flow Rate 07/15/24 07:56 07/15/24 07:18 07/15/24 05:53 2 07/15/24 05:47 2 07/15/24 03:43 07/15/24 02:59 07/14/24 23:49 07/14/24 21:28 2 07/14/24 21:00 2
--- NOTE | 2024-07-15 10:50 | Cardiology Progress Note ---
Date of Service July 15, 2024 Assessment & Plan (1) Acute and chronic respiratory failure with hypercapnia: (2) Volume overload: (3) Sleep apnea: Plan Complex 48-year-old male presenting with acute on chronic volume overload, multifactorial in etiology - Acute on chronic respiratory failure with hypercapnia - Acute decompensated diastolic congestive heart failure, HFpEF - Uncontrolled hypertension - Untreated obstructive sleep apnea Recommendations: * Continue IV furosemide through today, revaluating ongoing need in AM of 07/16, likely transitioning to oral Torsemide tomorrow. * Continue spironolactone 25 mg/day, Metoprolol 100 mg BID, losartan 100 mg/day, ASA, and atorvastatin * Trial terazosin 1 mg at bedtime for hypertension * Pioglitazone (Actos) and NSAID's except aspirin 81 mg/day to be discontinued. * CPAP therapy encouraged * Restriction sodium to less than 2000 mg/day. * Strict I/O's, daily weights, daily metabolic panel. Admission and Anticipated Discharge Date Admission Date: July 13, 2024 Supervising Physician Co-Signing Physician Notes I have personally performed a history and physical examination on the patient. I have reviewed the advance practitioner's documentation, and I agree with, and take responsibility for the plan of care. 48-year-old male with acute on chronic heart failure with preserved ejection fraction, acute on chronic respiratory failure with hypercapnea, and uncontrolled hypertension. Actos discontinued. Continue IV furosemide for additional 24 hours. Likely transition to torsemide in AM. Continue spironolactone and losartan as ordered. Monitor fluid balance, daily weight, and GFR. lBack Mayfield DO, [facility] Subjective Patient seen and examined. Chart, medications, and telemetry reviewed. Complaints: Right knee pain Puffiness and right lower extremity edema improved. Denies chest pain, palpitati ons, shortness of breath, orthopnea, PND, dizziness, subjective fevers, or chills I's/O's: -900 mL, -2710 mL (-3610 mL overall) Telemetry: Sinus rhythm with occasional atrial ectopy, heart rate predominantly in the 90s. Review of Systems Review of Systems: Complete Review of Systems is as stated above, negative, or noncontributory. Physical Exam Physical Exam: General: A&Ox3. NAD. HENT: Normocephalic. Atraumatic. Eyes: PER. Conjunctiva pink, sclera clear. Neck: No overt JVD. Heart: Distant heart sounds. RRR, 90 bpm. No murmur or rub appreciated. Lungs: Clear to auscultation. Abdomen: +BS. Soft. Nontender. No masses or organomegaly. Extremities: Trace to 1+ right lower extremity edema. No cyanosis. No clubbing Limited neurological examination is without focal deficits. Pulses: radial=2/4, posterior tibial=1/4 on the right. BKA on the left. Results & Data Vital Signs (Past 12 Hours) Vital Signs Temp Pulse Pulse Resp BP Pulse Ox Pulse Ox 07/15/24 10:13 07/15/24 10:07 93 H 14 95 07/15/24 08:00 96 07/15/24 07:56 35.8 C L 90 17 161/80 H 98 07/15/24 07:18 90 07/15/24 05:53 91 H 16 96 07/15/24 05:47 90 18 92 07/15/24 03:43 91 H 07/15/24 02:59 36.9 C 92 H 23 160/56 H 95 07/14/24 23:49 36.8 C 95 H 17 148/63 H 94 O2 Del Method O2 Del Method O2 Flow Rate 07/15/24 10:13 CPAP 07/15/24 10:07 5 07/15/24 08:00 CPAP 07/15/24 07:56 BiPAP 07/15/24 07:18 07/15/24 05:53 2 07/15/24 05:47 2 07/15/24 03:43 07/15/24 02:59 BiPAP 07/14/24 23:49 CPAP Laboratory Results CBC 07/15/24 Range/Units 06:55 WBC 7.29 (4.8-10.8) K/ul RBC 4.61 L (4.70-6.10) M/uL Hgb 12.2 L (14.0-18.0) g/dl Hct 39.2 L (42.0-52.0) % Plt Count 244 (130-400) K/uL Comprehensive Metabolic Panel 07/15/24 Range/Units 06:55 Sodium 139 (136-145) mmol/L Potassium 4.3 (3.5-5.1) mmol/L Chloride 99 (98-107) mmol/L Carbon Dioxide 33 H (21-32) mmol/L BUN 26 H (6-23) mg/dl Creatinine 0.93 (0.6-1.4) mg/dl Glucose 148 H (70-99(Fasting)) mg/dl Calcium 9.5 (8.6-10.3) mg/dl Intake and Output 07/14/24 07/15/24 07/15/24 22:59 06:59 14:59 Intake Total 240 / 240 Output Total 800 / 2950 1500 / 2950 Balance -560 / -2710 -1500 / -2710 Intake: Oral 240 / 240 Output: Urine 800 / 2950 1500 / 2950 Other: Weight 168.7 kg Weight Measurement Method Built in [facility] (3) Sleep apnea Sleep apnea type: unspecified type Qualified Code(s): G47.30 - Sleep apnea, unspecified
[2024-07-15] MEDS: ACETAMINOPHEN 325 MG TAB PO PRN (13:18)
[2024-07-15] MEDS: TERAZOSIN HCL 1 MG CAP PO SCH (20:16)
[2024-07-16 02:48] VITALS: TEMP 97.5
[2024-07-16 06:52] LABS: Basophils # (auto) 0.06 K/uL (0.00-0.20); Basophils % (auto) 0.9 %; Eosinophils # (auto) 0.39 K/uL (0.00-0.50); Eosinophils % (auto) 6.1 %; Hemoglobin 12.3 g/dl (14.0-18.0); Immature Granulocytes # (auto) 0.12 K/uL (0.01-0.20); Immature Granulocytes % (auto) 1.9 %; Lymphocytes # (auto) 2.33 K/uL (1.20-3.40); Lymphocytes % (auto) 36.3 %; Mean Corpuscular Hemoglobin 26.9 pg (25.0-34.0); Mean Corpuscular Hgb Conc 32.4 g/dL (32.0-36.0); Mean Platelet Volume 9.7 fL (9.4-12.4); Monocytes # (auto) 0.81 K/uL (0.11-0.59); Monocytes % (auto) 12.6 %; Neutrophils % (auto) 42.2 %; Platelet Count 262 K/uL (130-400); RDW Coefficient of Variation 14.6 % (11.5-14.5); RDW Standard Deviation 43.8 fL (36.4-46.3); Red Blood Count 4.58 M/uL (4.70-6.10); White Blood Count 6.41 K/ul (4.8-10.8)
[2024-07-16 07:12] LABS: BUN Creatinine Ratio 22.3 (10-20); Calcium 9.3 mg/dl (8.6-10.3); Creatinine Clr Calc Pharmacy 113.6 ml/min; Est GFR (African American) 73.7 ml/min; Est GFR (Non-African American) 63.6 ml/min; Potassium 4.1 mmol/L (3.5-5.1)
[2024-07-16 07:30] VITALS: BP 121/74; RESP 8
[2024-07-16] MEDS: DOCUSATE SODIUM 100 MG CAP PO PRN (08:30)
--- NOTE | 2024-07-16 09:31 | Cardiology Progress Note ---
Date of Service July 16, 2024 Assessment & Plan (1) Acute and chronic respiratory failure with hypercapnia: (2) Volume overload: (3) Sleep apnea: Plan Complex 48-year-old male presenting with acute on chronic volume overload, multifactorial in etiology - Acute on chronic respiratory failure with hypercapnia - Acute decompensated diastolic congestive heart failure, HFpEF - Uncontrolled hypertension - Untreated obstructive sleep apnea Recommendations: * Discontinue IV furosemide * Start oral Torsemide 20 mg/day * Continue spironolactone 25 mg/day * Continue Metoprolol 100 mg BID * Continue losartan 50 mg twice a day * Continue terazosin 1 mg at bedtime * Continue ASA * Continue atorvastatin * Pioglitazone (Actos) discontinued * NSAID (ibuprofen) discontinued * CPAP therapy encouraged * Increase activity as tolerated * Metabolic panel in one week * Outpatient cardiology follow-up * Please contact with any questions or concerns Admission and Anticipated Discharge Date Admission Date: July 13, 2024 Supervising Physician Co-Signing Physician Notes I have personally performed a history and physical examination on the patient. I have reviewed the advance practitioner's documentation, and I agree with, and take responsibility for the plan of care. 48-year-old male with acute on chronic heart failure with preserved ejection fraction, acute on chronic respiratory failure with hypercapnea, and uncontrolled hypertension. Actos discontinued. Transition IV furosemide to oral torsemide 20 mg daily. Metoprolol titrated to 100 mg twice daily during hospitalization. Continue Aldactone, losartan, terazosin, and atorvastatin. Continue spironolactone and losartan as ordered. Cardiology will sign off. Please call with additional concerns/questions. Black Mayfield DO, [facility] Subjective Patient seen and examined. Chart, medications, and telemetry reviewed. Complaints: Right knee pain No chest pain, palpitations, shortness of breath, orthopnea, PND, dizziness, subjective fevers, or chills I's/O's: -5,515 mL's overall Telemetry: Sinus rhythm in the 90's. Review of Systems Review of Systems: Complete Review of Systems is as stated above, negative, or noncontributory. Physical Exam Physical Exam: General: A&Ox3. NAD. HENT: Normocephalic. Atraumatic. Eyes: PER. Conjunctiva pink, sclera clear. Neck: No overt JVD. Heart: Distant heart sounds. RRR, 86 bpm. No murmur or rub appreciated. Lungs: Clear to auscultation. Abdomen: +BS. Soft. Nontender. No masses or organomegaly. Extremities: No right lower extremity edema. BKA on the left. Limited neurological examination is without focal deficits. Pulses: radial=2/4, posterior tibial=1/4 on the right. BKA on the left. Results & Data Vital Signs (Past 12 Hours) Vital Signs Temp Pulse Pulse Pulse Resp BP Pulse Ox 07/16/24 07:34 07/16/24 07:29 36.4 C L 88 8 L 121/74 99 07/16/24 07:10 89 07/16/24 03:05 90 17 96 07/16/24 02:46 36.4 C L 92 H 22 117/64 95 07/16/24 00:02 95 H 20 96 07/15/24 22:58 101 H 07/15/24 22:54 36.9 C 98 H 16 131/67 95 O2 Del Method O2 Flow Rate 07/16/24 07:34 Room Air 07/16/24 07:29 CPAP 07/16/24 07:10 07/16/24 03:05 6 07/16/24 02:46 CPAP 6 07/16/24 00:02 6 07/15/24 22:58 07/15/24 22:54 Room Air Laboratory Results CBC 07/16/24 Range/Units 06:19 WBC 6.41 (4.8-10.8) K/ul RBC 4.58 L (4.70-6.10) M/uL Hgb 12.3 L (14.0-18.0) g/dl Hct 38.0 L (42.0-52.0) % Plt Count 262 (130-400) K/uL Neut # (Auto) 2.70 (1.40-6.50) K/uL Lymph # (Auto) 2.33 (1.20-3.40) K/uL [place] # (Auto) 0.81 H (0.11-0.59) K/uL Eos # (Auto) 0.39 (0.00-0.50) K/uL Baso # (Auto) 0.06 (0.00-0.20) K/uL Comprehensive Metabolic Panel 07/16/24 Range/Units 06:19 Sodium 139 (136-145) mmol/L Potassium 4.1 (3.5-5.1) mmol/L Chloride 97 L (98-107) mmol/L Carbon Dioxide 33 H (21-32) mmol/L BUN 29 H (6-23) mg/dl Creatinine 1.30 D (0.6-1.4) mg/dl Glucose 147 H (70-99(Fasting)) mg/dl Calcium 9.3 (8.6-10.3) mg/dl Intake and Output 07/15/24 07/16/24 07/16/24 22:59 06:59 14:59 Intake Total 595 / 595 Balance 595 / -1905 Intake: Oral 595 / 595 Other: Weight 168.6 kg Weight Measurement Method Built in [facility] (3) Sleep apnea Sleep apnea type: unspecified type Qualified Code(s): G47.30 - Sleep apnea, unspecified
[2024-07-16 11:02] VITALS: PULSE 92; O2SAT 99
[2024-07-17] MEDS ORDERED: TORSEMIDE 20 MG TAB PO SCH (09:00)
--- NOTE | 2024-07-18 14:28 | Discharge Summary ---
Date of Service July 16, 2024 Admission HPI Per Admitting Provider History obtained from patient and records. Medical history significant for hypertension, hyperlipidemia, COPD/RLD, DAMION (current CPAP noncompliance), PE/DVT status post anticoagulation, DM2 insulin requiring, NAFLD, GERD, gastroparesis, history of pancreatitis, chronic anemia (baseline hemoglobin 10-11), morbid obesity, intellectual disability as per records, ongoing tobacco abuse. Last confinement September 2023 for osteonecrosis left foot status post BKA. Patient not this increases chest and abdominal tightness and fullness the last 2 days. Pants no longer fitting him. Heavy breathing without cough symptoms. Compliant with home meds. Denies headache symptoms. Highest SBP of 190s documented at the ER. 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 Admission Exam Per Admitting Provider GENERAL: Comfortable, pleasant, morbidly obese, no respiratory distress SKIN: Pallor, warm HEENT: Alopecia, pale palpebral conjunctivae, no ptosis, moist buccal mucosa, nasal cannula in place NECK : Supple, short neck, no tenderness CHEST : Decreased breath sounds, no tenderness HEART : RRR, no obvious murmurs ABDOMEN: Some distention, nontender EXTREMITIES : RLE swelling without tenderness, left BKA stump NEUROLOGIC : Coherent, no facial asymmetry, no other gross focality Principal Diagnosis Acute on chronic diastolic heart failure Discharge Exam GENERAL: Comfortable, pleasant, morbidly obese, no respiratory distress NECK : Supple, short neck, no tenderness CHEST : Decreased breath sounds at bases, no tenderness HEART : RRR, no obvious murmurs ABDOMEN: Some distention, nontender EXTREMITIES : RLE 1+ edema without tenderness, left BKA stump NEUROLOGIC : Coherent, no facial asymmetry, no other gross focality Discharge Data Allergies Allergy/AdvReac Type Severity Reaction Status Date / Time cefaclor [From Ceclor] Allergy Unknown childhood Verified 07/13/24 21:47 allergy ? Cephalosporins Allergy Unknown Unknown Verified 07/13/24 21:47 empagliflozin AdvReac Unknown put me Verified 07/13/24 21:47 [From Jardiance] into ketoacidosis? NSAIDS (Non-Steroidal AdvReac Unknown use with Verified 07/13/24 21:47 Anti-Inflamma caution : hx esophagus damage Consultations 07/13/24 21:37 ED Decision to Admit Stat 07/14/24 00:44 Consult Cardiology Routine Ordered Studies 07/13/24 20:25 CT angio chest PE protocol Stat 07/13/24 22:01 CT Abd and Pelvis [CT abd pelvis wo con] Stat Hospital Course (1) Acute and chronic respiratory failure with hypercapnia: 48-year-old male with PMH of HTN, HLD, COPD/RLD, DAMION [CPAP noncompliance], PE/DVT status post anticoagulation, T2DM insulin requiring, NAFLD, GERD, gastroparesis, pancreatitis, chronic anemia [baseline hemoglobin of 10-11], morbid obesity, intellectual disability, ongoing tobacco abuse who presented to the ED with complaint of increasing abdominal tightness/fullness/pants no longer fitting him/heavy breathing without cough symptoms going on for a while prior to arrival. He denied chest pain. He was managed for the following during the hospitalization: Acute on chronic diastolic heart failure Patient comes in with complaint suggestive of fluid overload. Admitting CTA chest negative for PE, negative for airspace consolidation, negative for pleural effusion or pneumothorax. Admitting CTAP with diffuse soft tissue edema suggesting anasarca. CXR w/ no pul edema. During the hospitalization, patient was started on IV diuretics. He reported improvement in the symptoms. Cardiology was consulted for comanagement. Metoprolol dose was increased, spironolactone was added. Pioglitazone was stopped and patient's torsemide was also increased. Patient to follow-up with PCP and cardiology as outpatient. Time spent evaluating patient, direct bedside care, chart review, placing orders, interpretation of diagnostic studies, discussion with consultants, patient, and family members, as well as other required patient management activities is 50 minutes Please note the above document was generated using voice recognition software. It may contain grammatical, syntax or spelling errors. Any formal questions or concerns about the content, text or information contained within the body of this dictation should be directly addressed to the provider for clarification Total Time Total Time Spent Total Time Spent (In Minutes): 35 Total Time Includes: Examination of the Patient, Discharge Planning, Medication Reconciliation, Communication With Other Providers and Other Discharge Plan Discharge Items Patient Disposition: Home - Self-Care Reason For Visit: RESP FAILURE, CP Discharge Diagnosis: Acute on chronic diastolic heart failure Activity: Resume your previous activity Non-emergency contact: Primary Care Provider Call non-emergency contact if: you have any medication questions and your symptoms worsen Follow-up/Referrals: Velasquez Valencia MD [Primary Care Provider] - Diet: Regular Addtl Attending Provider Instructions: You were admitted to the hospital due to fluid overload from the heart failure. Following changes have been made to your medication regimen; 1) Stop taking hydrochlorothiazide. 2) Stop taking ibuprofen. Use Tylenol for pain control 3) Losartan dose has been changed from 100 mg once a day to 50 mg twice a day; a new prescription has been sent to your pharmacy. 4) Terazosin 1 mg is added at night for better blood pressure control 5) Torsemide dose has been increased from 10 mg once a day to 20 mg once a day. Please start taking it from tomorrow. 6) Metoprolol dose has been increased to 100 mg twice a day 7) stop taking pioglitazone ( Actos) An appointment with your primary care doctor will be made for you in the next 1 week. You will need BMP to check on your kidney function and electrolytes. Pending Studies at Discharge: No Stand-Alone Forms: My [facility], Smoking Cessation Medications and DC Order Prescriptions: New losartan 50 mg Tablet 50 mg PO BID Qty: 60 0RF torsemide 20 mg Tablet 20 mg PO QAM Qty: 30 0RF terazosin 1 mg Capsule 1 mg PO HS Qty: 30 0RF Continued insulin aspart U-100 [Novolog FlexPen U-100 Insulin] 100 unit/mL (3 mL) insulin pen 18 unit subcut TID Patient Comments: 16 all the time Rx Instructions: w/meals dicyclomine 10 mg capsule 10 mg PO QID PRN (Reason: Diarrhea) famotidine 20 mg tablet 20 mg PO HS pantoprazole 40 mg tablet,delayed release (DR/EC) 40 mg PO BID metformin 500 mg tablet 1,000 mg PO BID atorvastatin 20 mg Tablet 20 mg PO QAM Qty: 30 0RF aspirin 81 mg Tablet,Delayed Release (Dr/Ec) 81 mg PO QAM Qty: 30 0RF polyethylene glycol 3350 [Miralax] 17 gram/dose powder 17 g PO DAILY PRN (Reason: constipation) Qty: 119 0RF cyclobenzaprine 10 mg tablet 10 mg PO HS gabapentin 100 mg capsule See Rx Instructions .ROUTE .COMPLEX Rx Instructions: TAKES 100 MG QAM, THEN 200 MG QHS. metoclopramide HCl 10 mg tablet 10 mg PO TID insulin glargine [Lantus Solostar U-100 Insulin] 100 unit/mL (3 mL) insulin pen 40 unit subcut BID Rx Instructions: TAKES 40 UNITS QAM, THEN 40 UNITS QHS. budesonide-formoterol [Symbicort] 80-4.5 mcg/actuation HFA aerosol inhaler 2 puff INHALATION BID albuterol sulfate 90 mcg/actuation HFA aerosol inhaler 2 inh inhalation Q6H PRN (Reason: WHEEZING/SOB) docusate sodium [Col-Rite] 100 mg capsule 100 mg PO BID PRN (Reason: Constipation) Qty: 60 0RF Movantik 25 mg tablet 25 mg PO DAILY spironolactone 25 mg Tablet 25 mg PO QAM Qty: 30 0RF Changed metoprolol succinate [Toprol XL] 100 mg tablet extended release 24 hr 100 mg PO BID Qty: 60 0RF Discontinued losartan 100 mg tablet 100 mg PO DAILY Qty: 30 0RF metoprolol succinate 50 mg Tablet Extended Release 24 Hr 50 mg PO QPM Qty: 30 0RF hydrochlorothiazide 25 mg Tablet 25 mg PO QAM Qty: 30 0RF ibuprofen-acetaminophen [Dual Action Pain Reliever] 125-250 mg Tablet 3 tab PO BID torsemide 10 mg tablet 10 mg PO DAILY Discharge Orders: Discharge Order (Routine); Ordered 07/16/24 Ordered By: Ryan Gilbert Admission Data Admit Date/Time: 07/13/24 23:53 Attending Provider: Ryan Gilbert Admit Provider: Zach Brown Primary Care Provider: Velasquez Valencia Other Providers: Black Mayfield Other Interventions: Discharge Summary Assessment (RN) Last Done: 07/16/24 11:00
== END 2024-07-16 11:26 | disposition home or self-care (01) | DRG 291 ==
LOC: ED 18:13 → SUATTDRO 23:53 → EDINP 23:53 → 2E 07-14 00:44

== ENCOUNTER 2024-07-22 15:26 | Inpatient (IN) ==
--- OUTSIDE RECORDS SUMMARY | 2024-07-22 15:35 | External Medical Summary | Summary of Care ---
Author Name Unknown Organization [facility] Address [address] [facility] [facility] [address] Phone [phone] Care Team Providers Care Starting Gate Driver Name Role Phone Velasquez Valencia MD Primary Care Provider [phone]- [phone] Reason for Visit * Reason Comments Follow Up PT is here with his GF Pt is here for R knee Euflexxa #1 * Precert (Diagnostic Medical) (Within 30 days (routine)) - Authorized Specialty Diagnoses / Procedures Referred By Contac t Referred To Contact Diagnoses Unilateral primary osteoarthritis, right knee Procedures EUFLEXXA, INTRA-ARTICULAR INJ, PER DOSE Casey Smith MD [address] [place] [address] Casey Smith MD [address] [place] [address] Referral ID Status Reason Start Date Expiration Date V isits Requested Visits Authorized [id number] Authorized Precert 07/13/2024 01/10/2025 3 3 Encounter Details Date Type Department Care Team (Latest Contact Info) Description 07/20/2024 10:15 AM EDT Office Visit Orthopaedics [facility] [address] [place] [address] Augie Dejesus PA-C [address] [place] [address] Primary osteoarthritis of right knee* Allergies Active Allergy Reactions Criticality Noted Date Comments Pioglitazone 07/19/2024 Cefaclor Unknown 07/26/2018 As child Empagliflozin Other (Please comment) 05/16/2021 DKA with hospitalization Nsaids High 04/19/2019 Gastric problems Other Reaction(s): gastroparesis, kidney problems, use with caution : hx esophagus damage documented as of this encounter (statuses as of 07/20/2024) Medications Medication Sig Dispensed Refills Start Date End Date Status Albuterol Sulfate HFA 108 (90 Base) MCG/ACT Inhalation Aerosol SolutionIndication s:RSV bronchitis inhale 2 puffs by mouth and INTO THE LUNGS every 6 hours if needed for cough shortness of breath or WITHDRAWAL SYMPTOMS 54 g 3 10/29/2022 Active Metamucil 0.52 GM Oral Capsule (Psyllium) [...] less than 7.0% ([facility]) Inject 40 units twice daily- this [...] of MTM visit 05/09/24], Reported on 05/09/2024 traMADol HCl 50 MG Oral Tablet (Ultram)Indication s:Abdominal pain, epigastric Take 1 Tablet by mouth every 6 hours as needed for Pain, Severe. 40 Tablet 02/22/2024 Active Lidocaine 4 % External Patch (Aspercreme) [...] less than 7.0% ([facility]) Use to check blood sugar once daily as needed 100 Strip 05/09/2024 Active OneTouch Delica Lancets 33GIndications:Typ e 2 diabetes mellitus with hemoglobin A1c goal of less than 7.0% ([facility]) Use to check blood sugars once [...] Respimat 2.5 MCG/ACT Inhalation Aerosol Solution (Tiotropium [place] Monohydrate) Inhale 2 Puffs by mouth in the morning. 1 Each 2 07/04/2024 4 Active Dexcom G6 SensorIndications: Type 2 diabetes mellitus with hemoglobin A1c goal of less than 7.0% ([facility]) Use as directed every 10 days. 9 Each 5 07/18/2024 Active Dexcom G6 TransmitterIndicat ions:Type 2 diabetes mellitus with hemoglobin A1c goal of less than 7.0% ([facility]) Use as directed. Change every 90 days 1 Each 5 07/18/2024 Active Losartan Potassium 50 MG Oral Tablet (Cozaar) Take 1 Tablet by mouth in the morning and 1 Tablet before bedtime. 07/19/2024 Active Terazosin HCl 1 MG Oral Capsule (Hytrin) Take 1 Capsule by mouth at bedtime. 07/19/2024 Active Hospital, Clinic, or Other Facility Administered Medication Ordered Dose Route Frequency Start Date End Date Status Sodium Hyaluronate (Viscosup) (Euflexxa/Hyalgan) 20 MG/2ML inj 20 mgIndications:Primary osteoarthritis of right knee 20 mg IX ONCE 07/20/2024 07/20/2024 Ended documented as of this encounter (statuses as of 07/20/2024) Active Problems Problem Noted Date Diagnosed Date [...] as of this encounter (statuses as of 07/20/2024) Resolved Problems Problem Noted Date Diagnosed Date [...] as of this encounter (statuses as of 07/20/2024) Immunizations Name Administration Dates Next Due COVID-19 mRNA, LNP-s, No Pre serve, 2-Dose Series (Actix) 10/21/2021,03/01/2021,02/07/2021 H1N1 2009 Influenza, IM 11/04/2009 Pneumococcal Conjugate Vacci ne, 20-valent ([id number]) 07/09/2023 Pneumococcal Polysaccharide PPV23 (Pneumovax) 11/03/2015,02/09/2006 Seasonal Influenza Vac., MDV , IM, 0.5 mL (Fluzone) 06/27/2015,07/07/2010,09/02/2009,10/26,08/22/2003 Seasonal Influenza, PF, 6 M & above, IM , (FluLaval or Fluzone) 07/09/2023,10/16/2022,07/31/2021,09/16,07/12/2019,07/05/2018 Seasonal Influenza, Quadriva lent, No Preserve, IM 05/24/2017,07/24/2016 Seasonal Influenza, Trivalen t, (IIV3), PF, (Fluzone) 07/04/2024 TDAP (age 10 and older)(Boostrix) 05/01/2018 documented [...] Progress Notes * Augie Dejesus PA-C - 07/20/2024 10:28 AM EDTAssociated Order(s): LG Joint Inj/Arthro: R knee Post-Procedure Diagnose(s): Primary osteoarthritis of right knee Established patient with right knee osteoarthritis presents today for Euflexxa injection 1 of the right knee. The patient has osteoarthritis and has pain weight-bearing activity. The patient has a [id number] amputation of the left lower extremity therefore compensation is significant with the right lower extremity exacerbating his symptoms with ADLs elective activity. Denies mechanical symptoms or instability. No swelling or redness in the right knee. No calf pain. X-rays on file reveal advancing osteoarthritis of the right knee. Has failed physical therapy, bracing, NSAIDs, ice, topical agents, behavior modification rest. We have obtained authorization for 3 shot Euflexxa series right knee. The patient is also an uncontrolled diabetic and unable to utilize and trial intra-articular corticosteroid injections, A1c is 8.6. complete review of systems negative General: alert and oriented x3 male, no acute distress, appears currently stated age, pleasant, well nourished, presents wheelchair today due to a [id number] amputation on the left lower extremity, with [...] to this encounter. Impression: Right knee osteoarthritis Plan: Today 's findings were discussed with the patient. They were educated regarding their diagnosis. Multiple treatment options discussed and agreed upon, including gel injections. Unable to injectwith corticosteroid A1c 8.6. I would consider MCCARTY injection authorization due to his osteoarthritis in the right knee. The patient has no other questions or concerns. Again, they have failed physical therapy, bracing, analgesics, topical agents, ice as well as obtaining authorization for MCCARTY injection series 3 shots of the right knee. The patient is in agreement.. Follow up in 1 week for 2nd injection of the series. Pleased with today 's care. Call sooner if needed. LG Joint Inj/Arthro: R knee on 07/20/2024 10:31 AM Indications: pain Details: 22 G needle, anterolateral approach Medications: (Euflexxa) Outcome: tolerated well, no immediate complications Procedure, treatment alternatives, risks and benefits explained, specific risks discussed. Consent was given by the patient. Immediately prior to procedure a time out was called to verify the correctpatient, procedure, equipment, ict support and test engineers and site/side marked as required. Patient was prepped and draped in the usual sterile fashion. This chart was completed in part utilizing [employer] Voice Recognition Software. Grammatical errors, random word insertions, prounoun errors, and incomplete sentences are an occasional consequence of this system due to software limitations, ambient noise, and hardware issues. Any formal questions or concerns about the content, text, or information contained within the body of this dictation should be directly addressed to the provider for clarification documented in this encounter Nursing Notes * Lula Castellon CMA - 07/20/2024 10:16 AM EDT PT is here with his GF Pt is here for R knee Euflexxa #1 documented in this encounter Plan of Treatment Upcoming Encounters Date Type Department Care Team (Latest Contact Info) Description 07/27/2024 10:15 AM EDT Office Visit [facility] [address] [place] [address] Augie Dejesus PA-C [address] [place] [address] 08/02/2024 11:12 AM EDT Hospital Encounter OR [facility], Operating Room, [facility] - 4th Floor [address] [place] [phone] Belen Jones DO [address] [place] [address] 08/02/2024 11:12 AM EDT - 08/02/2024 11:56 AM EDT Surgery OR [facility], Operating Room, [facility] - 4th Floor [address] [place] [phone] Belen Jones DO [address] [place] [address] ESOPHAGOGASTRODUODENOSCOPY (EGD), FLEXIBLE, TRANSORAL, ENDOSCOPIC ULTRASOUND 08/03/2024 10:15 AM EDT Office Visit [facility] [address] [place] [address] Augie Dejesus PA-C [address] [place] [address] 08/18/2024 9:20 AM EDT Office Visit Pharmacy, [place] [address] [facility] [place] [address] [facility] [address] [facility], [place] [address] 08/18/2024 11:00 AM EDT Office Visit Family Practice, [place] [address] [facility] [phone] Velasquez Valencia MD [address] [place] [address] 07/09/2025 10:00 AM EDT Office Visit Pulmonary Medicine, [facility] [address] [place] [address] Vishal Wallace MD [address] [place] [address] Scheduled Procedures Name Priority Associated Diagnoses Date/Ti me ESOPHAGOGASTRODUODENOSCOPY ( EGD), FLEXIBLE, TRANSORAL, ENDOSCOPIC ULTRASOUND Acute pancreatitis 08/02/2024 11:12 AM EDT COLONOSCOPY FLEXIBLE PROXIMA L DIAGNOSTIC Recall Screening for colon cancer Health Maintenance Due Date Last Done Comments Alpha-1 Antitrypsin 1991 Hepatitis B Vaccine (1 of 3 - 19+ 3-dose series) 1992 Cologuard 2018 Fecal Occult Blood Test 2018 Sigmoidoscopy 2018 COVID-19 Vaccine ( season) 2024 10/21/2021, 03/01/2021, 02/07/2021 Postponed from 06/18/2024 (Patient Declined After Education) Diabetic Eye Exam 08/17/2024 07/28/2023, , 03/07/2021, Additional history exists Postponed from 07/28/2024 (Patient Declined After Education) Diabetic Foot Exam 08/17/2024 07/09/2023, 0 03/07/2021, 11/27/2019, Additional history exists Postponed from 07/09/2024 (Patient Declined After Education) HIV Screening 08/26/2024 Postponed from 1988 (Patient Declined After Education) Hepatitis C Screening 08/26/2024 Postpo hayley from 1991 (Patient Declined After Education) Zoster Vaccines (1 of 2) 08/26/2024 Pos tponed from 2023 (Patient Declined After Education) HbA1c 11/09/2024 05/09/2024, 02/16, 01/14/2024, Additional history exists Albumin/Creatinine Ratio 01/13/2025 024, 01/05/2023, 09/01/2021, Additional history exists O2 ASSESSMENT COMPLETED IN PAST YEAR FOR COPD 02/21/2025 02/22/2024 Depression Screening 04/19/2025 04/19/2024 DISCUSS TOBACCO CESSATION (REFER TO SMARTSET #3291) 07/19/2025 07/19/2024, 10/16/2022 GFR 07/19/2025 07/19/2024, 04/18, 04/13/2024, Additional history exists DTap/Tdap Vaccines (2 - [...] encounter Medical Devices Implanted Type Area Automotive Service Consultant Device Identifier Shelf Expiration Date Model / Serial / Lot Suture [place] Dbl Load 4.75mm - [id number] Implanted:Qty: 1 on 12/01/2019 by Judith Condon DO at OR [facility] Right: Shoulder [employer] 07/17/2021 AR-2324BCT -2 / / [id number] Suture [place] Dbl Load 5.5mm - [id number] Implanted:Qty: 1 on 12/01/2019 by Judith Condon DO at OR [facility] Right: Shoulder [employer] 09/16/2021 AR-2323BCT -2 / / [id number] documented as of this encounter Procedures Procedure Name Priority Date/Time Associated Diagnosis Comments KS ARTHROCENTESIS ASPIR&/INJ MAJOR JT/BURSA W/O US Routine 07/20/2024 10:31 AM EDT Primary osteoarthritis of right knee documented in this encounter Results * KS ARTHROCENTESIS ASPIR&/INJ MAJOR JT/BURSA W/O US (07/20/2024 10:31 AM EDT) Narrative Augie Dejesus PA-C - 07/20/2024 10:31 AM EDT Augie Dejesus PA-C 07/20/2024 10:37 AM LG Joint Inj/Arthro: R knee on 07/20/2024 10:31 AM Indications: pain Details: 22 G needle, anterolateral approach Medications: (Euflexxa) Outcome: tolerated well, no immediate complications Procedure, treatment alternatives, risks and benefits explained, specific risks discussed. Consent was given by the patient. Immediately prior to procedure a time out was called to verify the correct patient, procedure, equipment, ict support and test engineers and site/side marked as required. Patient was prepped and draped in the usual sterile fashion. Augie Dejesus PA-C PROCDOC FORM documented in this encounter Visit Diagnoses Diagnosis Primary osteoarthritis of right knee- Primary Primary localized osteoarthrosis, lower leg Acute pancreatitis documented in this encounter Administered Medications Inactive Administered Medications - up to 3 most recent administrations Medication Order MAR Action Action Date Dose Rate Site Sodium Hyaluronate (Viscosup) (Euflexxa/Hyalgan) 20 MG/2ML inj 20 mg 20 mg, Intra-Articular, ONCE, On Swapna 07/20/24 at 1115, For 1 dose Given 07/20/2024 10:47 AM EDT 20 mg Knee Right documented in this encounter Advance Directives * [...] Directives occurred with: Not Discussed Care Teams Starting Gate Driver Relationship Specialty Start Date End Date Velasquez Valencia MD [address] [place] [address] PCP - General Family Medicine 09/09/22 documented as of this encounter
--- OUTSIDE RECORDS SUMMARY | 2024-07-22 15:35 | External Medical Summary | Summary of Care ---
Author Name Unknown Organization [facility] Address [address] [facility] [address] Phone [phone] Care Team Providers Care Emergency Department Director Name Role Phone Tati Polo MD Primary Care Provider +1- [phone] Reason for Visit * Reason Comments eRx-Medication Refill Encounter Details Date Type Department Care Team (Late st Contact Info) Description 07/20/2024 Refill Merged With [facility] [address] [place] [address] Tati Polo MD [address] [place] [address] Allergies Active Allergy Reactions Criticality [...] WITHDRAWAL SYMPTOMS 54 g 3 3 Active Metamucil 0.52 GM Oral [...] over 140 [see chart at bottom of [facility] visit 05/09/24], Reported on 05/09/2024 traMADol HCl 50 MG Oral Tablet (Ultram)Indicatio ns:Abdominal pain, epigastric Take 1 Tablet by mouth every 6 hours as needed for Pain, Severe. 40 Tablet 4 Active Lidocaine 4 % External Patch (Aspercreme) Place 1 Patch over 12 hours topically on the skin in the morning. 30 Patch 4 Active Metoclopramide HCl 10 MG Oral Tablet (Reglan) take 1 tablet by mouth three times a day 30 MINUTES before MEALS 270 Tablet 1 4 Active traMADol HCl [...] than 7.0% ([facility]) Use to check blood sugar once daily as needed 100 Strip 4 Active OneTouch Delica Lancets 33GIndications:Ty pe 2 diabetes mellitus with hemoglobin A1c goal of less than 7.0% ([facility]) Use to check blood sugars once [...] the morning. 30 Tablet 5 4 Active metFORMIN HCl 500 MG Oral Tablet (Glucophage)Indic ations:Type 2 diabetes mellitus with hemoglobin A1c goal of less than 7.0% (HCC) Take 2 Tablets by mouth in the morning and 2 Tablets in the evening. 360 Tablet 3 4 Active Pantoprazole Sodium 40 MG Oral Tablet Delayed Release (Protonix) TAKE 1 TABLET BY MOUTH TWICE A DAY 180 Tablet 3 4 Active Famotidine 20 MG Oral Tablet (Pepcid) TAKE ONE TABLET BY MOUTH NIGHTLY AT BEDTIME 90 Tablet 3 4 Active Spiriva Respimat 2.5 MCG/ACT Inhalation Aerosol Solution (Tiotropium [place] Monohydrate) Inhale 2 Puffs by mouth in the morning. 1 Each 2 4 10/02/20 24 Active Dexcom G6 SensorIndications :Type 2 diabetes mellitus with hemoglobin A1c goal of less than 7.0% ([facility]) Use as directed every 10 days. 9 Each 5 4 Active Dexcom G6 TransmitterIndica tions:Type 2 diabetes mellitus with hemoglobin A1c goal of less than 7.0% ([facility]) Use as directed. Change every 90 days 1 Each 5 4 Active Losartan Potassium 50 MG Oral Tablet (Cozaar) Take 1 Tablet by mouth in the morning and 1 Tablet before bedtime. 4 Active Terazosin HCl 1 MG Oral Capsule (Hytrin) Take 1 Capsule by mouth at bedtime. 4 Active Dicyclomine HCl 10 MG Oral Capsule (Bentyl) TAKE 1 CAPSULE BY MOUTH FOUR TIMES DAILY 360 Capsule 1 4 Active Dicyclomine HCl 10 MG Oral Capsule (Bentyl) TAKE 1 CAPSULE BY MOUTH FOUR TIMES DAILY 360 Capsule 4 07/20/20 24 Discontinued documented as of this encounter [...] IM 11/04/2009 Pneumococcal Conjugate Vacci ne, 20-valent ([id number]) 07/09/2023 Pneumococcal Polysaccharide PPV23 (Pneumovax) 11/03/2015,02/09/2006 Seasonal Influenza Vac., MDV , IM, 0.5 mL (Fluzone) 06/27/2015,07/07/2010,09/02/2009,10/26 Seasonal Influenza, PF, 6 M & above, [...] Telephone Encounter - Tati Polo MD - 07/20/2024 3:12 PM EDTSigned Prescriptions: Disp Refills Dicyclomine HCl 10 MG Oral Capsule (Bentyl)360 Ca*1 Sig: TAKE 1 CAPSULE BY MOUTH FOUR TIMES DAILYAuthorizing Provider: TATI POLO * Telephone Encounter - [place], [facility] - 07/20/2024 12:24 PM EDTPending Prescriptions: Disp Refills Dicyclomine HCl 10 MG Oral Capsule (Bentyl)360 Ca*1 Sig: TAKE 1 CAPSULE BY MOUTH FOUR TIMES DAILY * Telephone Encounter - [place], [facility] - 07/20/2024 12:24 PM EDT Pending Prescriptions: Disp Refills Dicyclomine HCl 10 MG Oral Capsule (Bentyl)360 Ca*1 Sig: TAKE 1 CAPSULE BY MOUTH FOUR TIMES DAILY 07/19/2024 (in office), Visit date not found (telemedicine) 08/18/2024 If no future appointments scheduled, and last appointment is greater than a year ago, please schedule patient for a follow-up appointment Last date the medication was ordered: 04/26/24 Pharmacy: [id number] Is this request for a controlled substance?No Urine Drug Screen:No results found. However, due to the size of the patient record, not all encounters were searched. Please check Results Review for a complete set of results. Patient Phone Numbers Labs: Lab Results Component Value Date/Time CREAT 1.2 07/19/2024 12:39 PM CREAT 0.98 02/07/2024 12:00 AM CREAT 0.8 11/25/2019 08:53 AM POTASSIUM 5.3 (H) 07/19/2024 12:39 PM POTASSIUM 5.0 03/15/2024 05:48 PM POTASSIUM [...] Description 07/27/2024 10:15 AM EDT Office Visit Orthopaedics [facility] [address] [place] [address] Augie Dejesus PA-C [address] [place] [address] 08/02/2024 11:12 AM EDT Hospital Encounter OR [facility], Operating Room, [facility] - 4th Floor [address] [place] [phone] Belen Jones DO [address] [place] [address] 08/02/2024 11:12 AM EDT - 08/02/2024 11:56 AM EDT Surgery OR [facility], Operating Room, [facility] - 4th Floor [address] [place] [phone] Belen Jones DO [address] [place] [address] ESOPHAGOGASTRODUODENOSCOPY (EGD), FLEXIBLE, TRANSORAL, ENDOSCOPIC ULTRASOUND 08/03/2024 10:15 AM EDT Office Visit Orthopaedics [facility] [address] [place] [address] Augie Dejesus PA-C [address] [place] [address] 08/18/2024 9:20 AM EDT [place] [address] [facility] [address] [facility] [address] [facility] [address] 08/18/2024 11:00 AM EDT Office Visit [facility] [place] [address] [facility] [phone] Tati Polo MD [address] [place] [address] 07/09/2025 10:00 AM EDT Office Visit Pulmonary Medicine, [facility] [address] [facility] [place] [address] Vishal Wallace MD [address] [place] [address] Scheduled Procedures Name Priority Associated Diagnoses Date/Ti [...] (Patient Declined After Education) HbA1c 11/09/2024 05/09/2024, 05/2 10/2023, 01/14/2024, Additional history exists Albumin/Creatinine Ratio 01/13/2025 024, 01/05/2023, 09/01/2021, Additional history exists O2 ASSESSMENT COMPLETED IN PAST YEAR FOR COPD 02/21/2025 02/22/2024 Depression Screening 04/19/2025 04/19/2024 DISCUSS TOBACCO CESSATION (REFER TO SMARTSET #0481) 07/19/2025 07/19/2024, 10/16/2022 GFR 07/19/2025 07/19/2024, 04/18, [...] this encounter Medical Devices Implanted Type Area Hand Roller Device Identifier Shelf Expiration Date Model / Serial / Lot Suture [place] Dbl Load 4.75mm - [id number] Implanted:Qty: 1 on 12/01/2019 by Judith Condon DO at OR [facility] Right: Shoulder [employer] 07/17/2021 AR-2324BCT -2 / / [id number] Suture [place] Dbl Load 5.5mm - [id number] Implanted:Qty: 1 on 12/01/2019 by Judith Condon DO at OR [facility] Right: Shoulder [employer] 09/16/2021 AR-2323BCT -2 / / [id number] documented as of this encounter Advance Directives [...] Directives occurred with: Not Discussed Care Teams Emergency Department Director Relationship Specialty Start Date End Date Tati Polo MD [address] [facility] [place] [address] PCP - General Family Medicine 09/09/22 documented as of this encounter
--- OUTSIDE RECORDS SUMMARY | 2024-07-22 15:36 | External Medical Summary | Summary of Care ---
Author Name Unknown Organization [facility] Address [address] [facility] [address] Phone [phone] Care Team Providers Care Spoon Maker Name Role Phone Velasquez Valencia MD Primary Care Provider +1- [phone] Reason for Visit * Reason Comments Outpatient Testing Encounter Details Date Type Department Care Team (Late st Contact Info) Description 07/19/2024 12:50 PM EDT Laboratory Laboratory, [facility] [address] [place] [address] [facility] [address] [place] [address] COPD, moderate (HCC); Acute on chronic diastolic heart failure (HCC) Allergies Active Allergy Reactions Criticality Noted Date Comments Pioglitazone 07/19/2024 Cefaclor Unknown 07/26/2018 As child Empagliflozin Other (Please comment) 05/16/2021 DKA with hospitalization Nsaids High 04/19/2019 Gastric problems Other Reaction(s): gastroparesis, kidney problems, use with caution : hx esophagus damage documented as of this encounter (statuses as of 07/19/2024) Medications Medication Sig Dispensed Refills Start Date [...] over 140 [see chart at bottom of [facility] visit 05/09/24], Reported on 05/09/2024 traMADol HCl [...] than 7.0% ([facility]) Use to check blood sugar once daily as needed 100 Strip 05/09/2024 Active OneTouch Delica Lancets 33GIndications:Typ e 2 diabetes mellitus with hemoglobin A1c goal of less than 7.0% ([facility]) Use to check blood sugars [...] Respimat 2.5 MCG/ACT Inhalation Aerosol Solution (Tiotropium [place] Monohydrate) Inhale 2 Puffs by mouth in the morning. 1 Each 2 07/04/2024 Active Dexcom G6 SensorIndications: Type 2 diabetes mellitus with hemoglobin A1c goal of less than 7.0% (HCC) Use as directed every 10 days. 9 Each 5 07/18/2024 Active Dexcom G6 TransmitterIndicat ions:Type 2 diabetes mellitus with hemoglobin A1c goal of less than 7.0% (HCC) Use as directed. Change every 90 days 1 Each 5 07/18/2024 Active documented as of this encounter (statuses as of 07/19/2024) Active Problems Problem Noted Date Diagnosed Date [...] as of this encounter (statuses as of 07/19/2024) Resolved Problems Problem Noted Date Diagnosed Date [...] as of this encounter (statuses as of 07/19/2024) Immunizations Name Administration Dates Next Due COVID-19 mRNA, LNP-s, No Pre serve, 2-Dose Series ([employer]) 10/21/2021,03/01/2021,02/07/2021 H1N1 2009 Influenza, IM 11/04/2009 Pneumococcal Conjugate Vacci ne, 20-valent ([id number]) 07/09/2023 Pneumococcal Polysaccharide PPV23 (Pneumovax) 11/03/2015,02/09/2006 Seasonal [...] 07/20/2024 10:15 AM EDT Office Visit Orthopaedics [facility] [address] [address] Augie Dejesus PA-C [address] [place] [address] 07/27/2024 10:15 AM EDT Office Visit [facility] [address] [place] [address] Augie Dejesus PA-C [address] [place] [address] 08/02/2024 11:12 AM EDT Hospital Encounter OR [facility], Operating Room, [facility] - 4th Floor [address] [facility] [place] [address] Belen Jones, DO [address] [place] [address] 08/02/2024 11:12 AM EDT - 08/02/2024 11:56 AM EDT Surgery OR [facility], Operating Room, [facility] - 4th Floor [address] [facility] [place] [phone] Belen Jones, DO [address] [place] [address] ESOPHAGOGASTRODUODENOSCOPY (EGD), FLEXIBLE, TRANSORAL, ENDOSCOPIC ULTRASOUND 08/03/2024 10:15 AM EDT Office Visit [facility] [address] [place] [address] Augie Dejesus PA-C [address] [place] [address] 08/18/2024 9:20 AM EDT Office Visit [place] [address] [facility] [place], [place] [address] [facility] [address] [facility] [place], [place] [address] 08/18/2024 11:00 AM EDT Office Visit [facility] [address] [facility] [place], [place] [address] Velasquez Valencia MD [address] [facility], [place] [id number] 07/09/2025 10:00 AM EDT Office Visit Pulmonary Medicine, [facility] [address] [facility] [place] [address] Vishal Wallace MD [address] [place] [phone] Pending Results Name Type Priority Associated Diagnoses Date /Time [id number], QN Lab Routine COPD, moderate (HCC) 07/19/2024 12:39 PM EDT BASIC METABOLIC PANEL Lab Routine Acute on chronic diastolic heart failure (HCC) 07/19/2024 12:39 PM EDT Scheduled Procedures Name Priority Associated [...] 05/09/2025 05/09/2024, 03/19, 04/12/2024, Additional history exists DISCUSS TOBACCO CESSATION (REFER TO SMARTSET #3291) 07/19/2025 07/19/2024, 10/16/2022 DTap/Tdap Vaccines (2 - Td or Tdap) [...] this encounter Medical Devices Implanted Type Area Lens Polisher Hand Device Identifier Shelf Expiration Date Model / Serial / Lot Suture [place] Dbl Load 4.75mm - [id number] Implanted:Qty: 1 on 12/01/2019 by Judith Condon, DO at OR [facility] Right: Shoulder [employer] 07/17/2021 AR-2324BCT -2 / / [id number] Suture [place] Dbl Load 5.5mm - [id number] Implanted:Qty: 1 on 12/01/2019 by Judith Condon, at OR [facility] Right: Shoulder [employer] 09/16/2021 AR-2323BCT -2 / / [id number] documented as of this encounter Visit Diagnoses Diagnosis COPD, moderate (HCC) Chronic airway obstruction, not elsewhere classified Acute on chronic diastolic heart failure (HCC) Acute on chronic diastolic heart failure Acute pancreatitis documented in this encounter Advance [...] Directives occurred with: Not Discussed Care Teams Spoon Maker Relationship Specialty Start Date End Date Velasquez Valencia MD [address] [facility] [place] [address] PCP - General Family Medicine 09/09/22 documented as of this encounter
--- OUTSIDE RECORDS SUMMARY | 2024-07-22 15:36 | External Medical Summary ---
Author Name Unknown Address Unknown Organization K01:[facility] [place] - [address] [place] [address] Laboratory Report Ordering Provider Test Date Status CHARLES DUFFYREINA 07/19/2024 12:39:11 Final Observation Date Value Abnormality Reference (Units ) Status BUN 07/19/2024 12:39:11 23 Above high normal 6-20 (mg/dL) Final Creatinine 07/19/2024 12:39:11 1.2 0.6-1.2 (mg/dL) Final Glomerular filtration rate/1.73 sq M.predicted [Volume Rate/Area] in Serum, Plasma or Blood by Creatinine-based formula (CKD-EPI) 07/19/2024 12:39:11 73 >=60 (mL/min) Final eGFR is calculated based on the CKD-EPI 2020 equation. Sodium 07/19/2024 12:39:11 135 135-146 (m mol/L) Final Potassium 07/19/2024 12:39:11 5.3 Above high normal 3. 5-5.1 (mmol/L) Final Cl 07/19/2024 12:39:11 95 Below low normal 98- 107 (mmol/L) Final CO2 07/19/2024 12:39:11 24 22-32 (mmo l/L) Final Anion gap 07/19/2024 12:39:11 16 Above high normal 7- 15 (mmol/L) Final Glucose 07/19/2024 12:39:11 320 Above high normal 70 -120 (mg/dL) Final Calcium 07/19/2024 12:39:11 9.8 8.4-10.2 ( mg/dL) Final Performing Location [facility] [place] - [address] [place] [address]
--- OUTSIDE RECORDS SUMMARY | 2024-07-22 15:36 | External Medical Summary | Summary of Care ---
Author Name Unknown Organization [facility] Address [address] [facility] [address] Phone [phone] Care Team Providers Care Central Supply Manager Name Role Phone Velasquez Valencia MD Primary Care Provider +1- [phone] Reason for Visit * Reason Comments Dosage Adjustment In Person (Anticoag Cl inic) Diabetes Follow-Up Encounter Details Date Type Department Care Team (Late st Contact Info) Description 07/18/2024 10:30 AM EDT Office Visit Pharmacy, [place] [address] [place] [address] [facility] [address] [place] [address] Type 2 diabetes mellitus with hemoglobin A1c goal of less than 7.0% ([facility])* Allergies Active Allergy Reactions Criticality Noted Date Comments Cefaclor Unknown 07/26/2018 As child Empagliflozin Other (Please comment) 05/16/2021 DKA with hospitalization Nsaids High 04/19/2019 Gastric problems Other Reaction(s): gastroparesis, kidney problems, use with caution : hx esophagus damage documented as of this encounter (statuses as of 07/18/2024) Medications Medication Sig Dispensed Refills Start Date [...] Respimat 2.5 MCG/ACT Inhalation Aerosol Solution (Tiotropium [place] Monohydrate) Inhale 2 Puffs by mouth in the morning. 1 Each 2 07/04/2024 Active Dexcom G6 SensorIndications :Type 2 diabetes mellitus with hemoglobin A1c goal of less than 7.0% (HCC) Use as directed every 10 days. 9 Each 5 07/18/2024 Active Dexcom G6 TransmitterIndica tions:Type 2 diabetes mellitus with hemoglobin A1c goal of less than 7.0% (HCC) Use as directed. Change every 90 days 1 Each 5 07/18/2024 Active Pioglitazone HCl 45 MG Oral Tablet (Actos)Indication s:Type 2 diabetes mellitus with hemoglobin A1c goal of less than 7.0% (HCC) Take 1 Tablet by mouth in the morning. Please fill in about a month- patient is going to be using up his current supply of 15 mg and 30 mg tablets. 90 Tablet 4 02/16/2024 Discontinu ed(End of Procedure) documented as of this encounter (statuses as of 07/18/2024) Active Problems Problem Noted Date Diagnosed Date [...] as of this encounter (statuses as of 07/18/2024) Resolved Problems Problem Noted Date Diagnosed Date [...] as of this encounter (statuses as of 07/18/2024) Immunizations Name Administration Dates Next Due COVID-19 mRNA, LNP-s, No Pre serve, 2-Dose Series (Pfizer) 10/21/2021,03/01/2021,02/07/2021 H1N1 2009 Influenza, IM 11/04/2009 Pneumococcal Conjugate Vacci ne, 20-valent ([id number]) 07/09/2023 Pneumococcal Polysaccharide PPV23 (Pneumovax) 11/03/2015,02/09/2006 Seasonal [...] No 04/19/2024 Does the household have a [facility] hospit[facility] source of income? (Household - [...] of this encounter Progress Notes * Gisel [facility] - 07/18/2024 11:05 AM EDT Images from the original note were not included. Agree with plan as documented. I was present and in the exam room for the entirety of the visit. I did have a very candid discussion with patient about the lifestyle changes that he needs to make. His insulin requirements are immensely high, and now we are only able to use insulin to manage his sugars. Stressed to patient that a change- even small- needs to be made. No medication dose changes, patinet to work on lifestyle adjustments that are feasible for him. I spent a total of 30-39 minutes (exact time 36 mins) on the date of service in preparation, delivery, and documentation of the care provided to Bry Akhtar JrZach excluding any time spent in the performance of separately billed services. Gisel [facility] Clinical Pharmacist 07/18/2024, 11:42 AM * Talita Uriostegui, PHARM Student - 07/18/2024 10:29 AM EDT Medication Therapy Disease Management [facility] - Diabetes Management Progress Note Bry Knightonur Rachel, identified by name and date of , is a 48 year old male being seen for diabetes management/education. Patient presents for return diabetic visit. DIABETES: Current diabetic medications: Metformin HCL 500mg, 2 tabs BID Toujeo U300 40 units in AM and 40 units in PM Novolog 34 units with breakfast, and 22 units with lunch and 24 units with supper + 10 units with snacks + CF of 1:10 over 140 Pioglitazone 45 mg daily- Report stopping after hospital. eGFR> 90 mL/min as of 05/09/24 Medication Injection Site: Abdomen Lifestyle: Diet: unchanged Only reports eating one meal a day. Lunch Burger Jc- whopper burger (munguia, costa, cheese) onion rings, diet Dr. Garcia; 2 crispy chicken wraps Dinner- Grilled chicken sandwich Drinks sugar free soda; sometimes will go get regular soda from [employer] Does not have a set diet. Patient reports getting their prosthetic leg and will be more active. Glucose Review/SMBG: Readings obtained from patient device; Please see Gisel's note for Dexcom report. Reports having blood sugars of 503 mg/dL in the hospital. Having problems with getting sensor from medical suppliers. Hypoglycemia: Does your blood sugar go below 70 mg/dL? No Hyperglycemia symptoms present: none Recent Labs Units 05/09/24 1359 03/07/24 0517 01/14/24 1059 HEMOGLOBIN A1C - [facility] % 8.6* -- 10.2* HEMOGLOBIN, [id number] LAB % -- 10.0* -- Recent Labs Units 05/09/24 1359 04/13/24 0430 04/12/24 0945 ESTIMATED GLOMERULAR FILTRATION RATE - [facility] mL/min >90 >90 79 CREATININE - [facility] mg/dL 1.0 1.0 1.1 HYPERTENSION: Patient on ACEi/ARB: yes BP Readings from Last 3 Encounters: 07/04/24 126/82 06/20/24 140/72 05/09/24 138/78 Blood pressure at goal: yes HYPERLIPIDEMIA: Recent Labs Units 04/11/24 0345 12/13/23 0439 01/05/23 1133 LDL CHOLESTEROL (CALCULATED) - [facility] mg/dL -- 48 126 LDL CHOLESTEROL (DIRECT MEASURE) - [facility] mg/dL 60 -- -- Does patient have clinical ASCVD? No, is patient LDL less than 70mg/dL? Yes Patient is on Statin therapy (Atorvastatin 20 mg daily) HEALTH MAINTENANCE REVIEW: Health Maintenance Due Topic Date Due HIV Screening Never done Alpha-1 Antitrypsin Never done Hepatitis C Screening Never done Hepatitis B Vaccine (1 of 3 - 19+ 3-dose series) Never done DISCUSS TOBACCO CESSATION (REFER TO SMARTSET #1234) 10/16/2023 Zoster Vaccines (1 of 2) Never done COVID-19 Vaccine ( season) 2024 Diabetic Foot Exam 07/09/2024 Diabetic Eye Exam 07/28/2024 ASSESSMENT & PLAN: 1. Type 2 diabetes mellitus with hemoglobin A1c goal of less than 7.0% (HCC) E11.9 Considerations: - Jardiance caused DKA - hx of acute pancreatitis 12/14/23 & 03/2024- avoiding GLPs and GIPs - 07/18/24 hospital stopped Pioglitazone 45 mg daily due to edema. BG Readings - Blood sugars uncontrolled. See the Dexcom report from Gisel's note. Medications - Reviewed current regimen, patient is adherent to regimen. Spoke with patient about the possibility about getting an insulin pump but needs to make lifestyle adjustments to reduce daily insulin intake. Diet, Exercise, Lifestyle - No significant lifestyle changes since last visit. Discussed with patient about diet and trying to reduce carb and have smaller meals. Patient is agreeable to SMBG with Dexcom G6 daily. Patient aware to contact clinic if any hypoglycemia before next visit. MEDICATION CHANGES: no change Changed medical oncologist supplier to [employer] (by [employer]) Mail Order for the Dexcom G6 sensors Diabetic Medications: Metformin HCL 500mg, 2 tabs BID Toujeo U300 40 units in AM and 40 units in PM Novolog 34 units with breakfast, and 22 units with lunch and 24 units with supper + 10 units with snacks + CF of 1:10 over 140 HEALTH MAINTENANCE INTERVENTIONS: Labs: Up to Date Immunizations: Eligible for Zoster vaccines and COVID-19 vaccine Foot Exam: Complete with next PCP visit on 07/19/24 Eye Exam: Complete with next PCP visit on 07/19/24 Annual Wellness Visit: Up to Date FOLLOW UP: Return to clinic in 4 weeks 08/18/2024 Talita Uriostegui, PHARM Student Clinical Pharmacist - [employer] [facility] Medication Therapy Management [facility] 07/18/2024, 10:29 AM documented in this encounter Plan of Treatment Upcoming Encounters Date Type Department Care Team (Latest Contact Info) Description 07/19/2024 11:20 AM EDT Office Visit [facility] [address] [facility] [place] [address] Velasquez Valencia MD [address] [place] [phone] 07/20/2024 10:15 AM EDT Office Visit Orthopaedics [facility] [address] [place] [address] Augie Dejesus PA-C [address] [place] [address] 07/27/2024 10:15 AM EDT Office Visit [facility] [address] [place] [address] Augie Dejesus PA-C [address] [place] [address] 08/02/2024 11:12 AM EDT Hospital Encounter [place] [facility], Operating Room, [facility] - 4th Floor [address] [facility] [place] [phone] Belen Jones, DO [address] [place] [address] 08/02/2024 11:12 AM EDT - 08/02/2024 11:56 AM EDT Surgery OR [facility], Operating Room, [facility] - 4th Floor [address] [facility] [place] [phone] Belen Jones, DO [address] [place] [address] ESOPHAGOGASTRODUODENOSCOPY (EGD), FLEXIBLE, TRANSORAL, ENDOSCOPIC ULTRASOUND 08/03/2024 10:15 AM EDT Office Visit [facility] [address] [place] [address] Augie Dejesus PA-C [address] [place] [address] 08/18/2024 9:20 AM EDT Office Visit [address] [place] [address] [phone] [place] [address] [address] [facility] [address] 08/18/2024 11:00 AM EDT Office Visit Family Practice, [place] [address] [facility] [place] [phone] Velasquez Valencia MD [address] [place] [facility] [place] [address] 07/09/2025 10:00 AM EDT Office Visit Pulmonary Medicine, [facility] [address] [place] [address] Vishal Wallace MD [address] [place] [address] Scheduled Procedures Name Priority Associated Diagnoses Date/Ti [...] encounter Medical Devices Implanted Type Area Software Quality Automation Engineer Device Identifier Shelf Expiration Date Model / Serial / Lot Suture [place] Dbl Load 4.75mm - [id number] Implanted:Qty: 1 on 12/01/2019 by Judith Condon, at OR [facility] Right: Shoulder [employer] 07/17/2021 AR-2324BCT -2 / / [id number] Suture [place] Dbl Load 5.5mm - [id number] Implanted:Qty: 1 on 12/01/2019 by Judith Condon DO at OR [facility] Right: Shoulder [employer] 09/16/2021 AR-2323BCT -2 / / [id number] documented as of this encounter Visit Diagnoses [...] Directives occurred with: Not Discussed Care Teams Central Supply Manager Relationship Specialty Start Date End Date Velasquez Valencia MD [address] [facility] [place] [address] PCP - General Family Medicine 09/09/22 documented as of this encounter
--- OUTSIDE RECORDS SUMMARY | 2024-07-22 15:36 | External Medical Summary | Summary of Care ---
Author Name Unknown Organization [facility] Address [address] [facility] [place] [address] Phone [phone] Care Team Providers Care Chief Supply Chain Officer Name Role Phone Velasquez Valencia MD Primary Care Provider +1- [phone] Encounter Details Date Type Department Care Team (Late st Contact Info) Description 07/18/2024 Population Health External Data Unspecified Department Allergies [...] Respimat 2.5 MCG/ACT Inhalation Aerosol Solution (Tiotropium [place] Monohydrate) Inhale 2 Puffs by mouth in [...] mRNA, LNP-s, No Pre serve, 2-Dose Series ([employer]) 10/21/2021,03/01/2021,02/07/2021 H1N1 2009 Influenza, IM 11/04/2009 Pneumococcal Conjugate Vacci ne, 20-valent ([id number]) 07/09/2023 Pneumococcal Polysaccharide PPV23 (Pneumovax) 11/03/2015,02/09/2006 Seasonal [...] 07/18/2024 10:30 AM EDT Office Visit Pharmacy, [place] [address] [place] [address] [place] [facility] [address] [place] [address] 07/19/2024 11:20 AM EDT Office Visit Family [facility], [place] [address] [place] [phone] Velasquez Valencia [facility] [address] [facility] [address] 07/20/2024 10:15 AM EDT Office Visit [facility] [address] [place] [address] Augie Dejesus PA-C [address] [place] [address] 07/27/2024 10:15 AM EDT Office Visit [facility] [address] [place] [address] Augie Dejesus PA-C [address] [place] [address] 08/02/2024 11:12 AM EDT Hospital Encounter [place], Operating Room, [facility] - 4th Floor [address] [place] [phone] Belen Jones, DO [address] [place], [place] [address] 08/02/2024 11:12 AM EDT - 08/02/2024 11:56 AM EDT Surgery OR [facility], Operating Room, [facility] - 4th Floor [address] [place] [address] Belen Jones, DO [address] [place] [address] ESOPHAGOGASTRODUODENOSCOPY (EGD), FLEXIBLE, TRANSORAL, ENDOSCOPIC ULTRASOUND 08/03/2024 10:15 AM EDT Office Visit [facility] [address] [place] [address] Augie Dejesus PA-C [address] [place] [address] 08/18/2024 11:00 AM EDT Office Visit [facility] [address] [facility] [phone] Velasquez Valencia MD [address] [facility] [place] [address] 07/09/2025 10:00 AM EDT Office Visit Pulmonary Medicine, [facility] [address] [facility] [place] [address] Vishal Wallace MD [address] [place] [address] Scheduled Procedures Name Priority Associated Diagnoses Date/Ti [...] 2018 DISCUSS TOBACCO CESSATION (REFER TO SMARTSET #4821) 10/16/2023 10/16/2022 Zoster Vaccines (1 of 2) [...] encounter Medical Devices Implanted Type Area Interventional Physician Device Identifier Shelf Expiration Date Model / Serial / Lot Suture [place] Dbl Load 4.75mm - [id number] Implanted:Qty: 1 on 12/01/2019 by Judith Condon DO at OR [facility] Right: Shoulder [employer] 07/17/2021 AR-2324BCT -2 / / [id number] Suture [place] Dbl Load 5.5mm - [id number] Implanted:Qty: 1 on 12/01/2019 by Judith Condon DO at OR [facility] Right: Shoulder [employer] 09/16/2021 AR-2323BCT -2 / / [id number] documented as of this encounter Advance Directives [...] Directives occurred with: Not Discussed Care Teams Chief Supply Chain Officer Relationship Specialty Start Date End Date Velasquez Valencia MD [address] [place] [facility] [place] [address] PCP - General Family Medicine 09/09/22 documented as of this encounter
--- OUTSIDE RECORDS SUMMARY | 2024-07-22 15:36 | External Medical Summary | Summary of Care ---
Author Name Unknown Organization [facility] Address [address] [facility] [place] [address] Phone [phone] Care Team Providers Care Cd Technician Name Role Phone Velasquez Valencia MD Primary Care Provider [phone]- [phone] Reason for Visit * Reason Comments Follow Up Patient is here toda y to discuss getting a scooter and a lift chair. Will need a DME so insurance will cover.Patient is having trouble breathing for a couple days; patient is having trouble bending, he says his stomach area feels tight.Patient is having difficulty standing on his right leg due to knee pain. Pain has been happening for a while.Patient would like to discuss getting a painkiller stronger than tramodol.Patient would like to discuss something for weight control. Encounter Details Date Type Department Care Team (Late st Contact Info) Description 06/20/2024 1:00 PM EDT Office Visit [facility] [address] [place] [address] Velasquez Valencia MD [address], [place] [id number] Hx of BKA, left (HCC)*; Acute pain of right knee; Lumbar disc herniation Allergies Active Allergy Reactions Criticality Noted Date Comments Cefaclor Unknown 07/26/2018 As child Empagliflozin Other (Please comment) 05/16/2021 DKA with hospitalization Nsaids High 04/19/2019 Gastric problems Other Reaction(s): gastroparesis, kidney problems, use with caution : hx esophagus damage documented as of this encounter (statuses as of 07/17/2024) Medications Medication Sig Dispensed Refills Start Date [...] over 140 [see chart at bottom of [facility] visit 05/09/24], Reported on [...] Active OneTouch Verio In Vitro Strip (Glucose Blood)Indication s:Type 2 diabetes mellitus with hemoglobin A1c goal of less than 7.0% (HCC) Use to check blood sugar once daily as needed 100 Strip 4 Active OneTouch Delica Lancets 33GIndications:T ype 2 diabetes mellitus with hemoglobin A1c goal of less than 7.0% (HCC) Use to check blood sugars once daily as needed 100 Each 4 Active Movantik 25 MG Oral Tablet (Naloxegol Oxalate) take 1 tablet by mouth in the morning 30 Tablet 5 4 Active Gabapentin 100 MG Oral Capsule (Neurontin)Indic ations:Neuropath y TAKE 2 CAPSULES BY MOUTH EVERY 12 HOURS 120 Capsule 3 4 Active Cyclobenzaprine HCl 10 MG Oral Tablet (Flexeril)Indica tions:Lumbar disc herniation TAKE 1 TABLET BY MOUTH AT BEDTIME ONLY NEEDED 30 Tablet 4 Active oxyCODONE HCl 5 MG Oral Tablet (Oxy IR)Indications:L umbar disc herniation Take 1 Tablet by mouth every 8 hours as needed for Pain, Severe. 20 Tablet 4 Active Torsemide 10 MG Oral Tablet (Demadex) Take 1 Tablet by mouth in the morning. 30 Tablet 5 4 Active Famotidine 20 MG Oral Tablet (Pepcid) Take 1 Tablet by mouth every night at bedtime. 90 Tablet 3 3 07/03/20 24 Discontinued metFORMIN HCl 500 MG Oral Tablet (Glucophage)Yanet cations:Type 2 diabetes mellitus with hemoglobin A1c goal of less than 7.0% (HCC) Take 2 Tablets by mouth in the morning and 2 Tablets in the evening. 360 Tablet 3 3 07/02/20 24 Discontinued(Re fill) Torsemide 10 MG Oral Tablet (Demadex) Take 1 Tablet by mouth in the morning. 30 Tablet 4 06/20/20 24 Discontinued(Re fill) Pantoprazole Sodium 40 MG Oral Tablet Delayed Release (Protonix) TAKE 1 TABLET BY MOUTH TWICE A DAY 180 Tablet 1 4 07/03/20 24 Discontinued documented as of this encounter (statuses as of 07/17/2024) Active Problems Problem Noted Date Diagnosed Date [...] as of this encounter (statuses as of 07/17/2024) Resolved Problems Problem Noted Date Diagnosed Date [...] as of this encounter (statuses as of 07/17/2024) Immunizations Name Administration Dates Next Due COVID-19 mRNA, LNP-s, No Pre serve, 2-Dose Series (Pfizer) 10/21/2021,03/01/2021,02/07/2021 H1N1 2009 Influenza, IM 11/04/2009 Pneumococcal Conjugate Vacci ne, 20-valent ([id number]) 07/09/2023 Pneumococcal Polysaccharide PPV23 (Pneumovax) 11/03/2015,02/09/2006 Seasonal [...] Sign Reading Time Taken Comments Blood Pressure 140/72 06/20/2024 1:11 PM EDT Pulse 98 06/20/2024 1:11 PM EDT Temperature 35.8 C (96.4 F) 06/20/2024 1:11 PM ED T Respiratory Rate 16 06/20/2024 1:11 PM EDT Oxygen Saturation 93% 06/20/2024 1:11 PM EDT Inhaled Oxygen Concentration - - Weight 147.8 kg (325 lb 12.8 oz) 06/20/2024 1:11 PM EDT Height 188 cm (6' 2") 06/20/2024 1:11 PM EDT Body Mass Index 41.83 06/20/2024 1:11 PM EDT documented in this encounter Functional [...] Progress Notes * Velasquez Valencia MD - 06/20/2024 1:30 PM EDT Subjective: Bry Akhtar Jr. is a 48 year old male here today for Chief Complaint Patient presents with Follow Up Patient is here today to discuss getting a scooter and a lift chair. Will need a DME so insurance will cover. Patient is having trouble breathing for a couple days; patient is having trouble bending, he says his stomach area feels tight. Patient is having difficulty standing on his right leg due to knee pain. Pain has been happening for a while. Patient would like to discuss getting a painkiller stronger than tramodol. Patient would like to discuss something for weight control. Pt presents for an office visit to discuss getting an order for a left chair and an electric scooter. He had a recent BKA on the left and is working towards getting a prosthesis and ambulating - but for now is reliant on scooter/wheelchair for mobility and to accomplish ADLs. He is unable to get out of any of his chairs at home without assistance and requires a lift chair. 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 Current use of insulin ([facility]) 09/13/2017 DDD (degenerative disc disease), cervical 07/12/2019 Diabetes mellitus type 2, insulin dependent ([facility]) 07/05/2017 Diabetic polyneuropathy associated with type 2 diabetes mellitus ([facility]) 07/24/2016 Displacement of lumbar intervertebral disc without myelopathy DM type 2, goal: symptom mgmt ([facility]) 09/13/2017 DM type 2, not at goal ([facility]) Dyslipidemia, goal LDL below 70 07/24/2016 Gastroesophageal reflux disease without esophagitis 05/07/2020 Gastroparesis 08/27/2015 GERD (gastroesophageal reflux disease) History of DVT (deep vein thrombosis) 04/19/2019 HTN, goal below 140/90 12/23/2015 Per HTN Protocol #27. HTN, goal: symptom mgmt only 09/13/2017 IBS (irritable bowel syndrome) 08/27/2015 Intellectual disability 10/25/2019 Major depressive disorder, recurrent, severe without psychotic features ([facility]) 12/22/2016 Obesity, Class II, BMI 35-39.9, isolated (see actual BMI) 04/19/2019 OTHER osseochondrosis ankle Primary localized osteoarthrosis, lower leg Sleep apnea, obstructive Tobacco use disorder 12/22/2016 Type 2 diabetes mellitus with hemoglobin A1c goal of less than 8.0% ([facility]) 07/05/2017 Past Surgical History: Procedure Laterality Date ARTHO,TOMAS,W/ROTATOR CUFF Right 12/01/2019 ARTHROSCOPY SHOULDER ROTATOR CUFF performed by Judith Cnodon DO at [facility] COLONOSCOPY, DIAGNOSTIC (RECTUM) 04/18/2015 adenomatous polyp, repeat 5 yrs/[facility] COLONOSCOPY, DIAGNOSTIC (RECTUM) 04/15/2023 poor prep, repeat / [facility] COLONOSCOPY, DIAGNOSTIC (RECTUM) N/A 02/22/2024 normal/recall 5 years/COLONOSCOPY FLEXIBLE PROXIMAL DIAGNOSTIC performed by Marcela Del Valle MD at [facility] EGD, FLEXIBLE, DIAGNOSTIC 10/17/2014 mild-mod inflammation, repeat 1-2 mo/[facility] EGD, FLEXIBLE, DIAGNOSTIC 04/17/2015 normal bx/inpt [facility] EGD, FLEXIBLE, DIAGNOSTIC 05/08/2019 reflux esophagitis, gastritis, duodenitis, repeat 6 wks / [facility] EGD, FLEXIBLE, DIAGNOSTIC 08/18/2019 normal-EGD/[facility] EGD, FLEXIBLE, DIAGNOSTIC N/A 05/02/2020 biopsies normal/[facility] EGD, FLEXIBLE, DIAGNOSTIC N/A 02/22/2024 antral gastritis/biopsies normal/ESOPHAGOGASTRODUODENOSCOPY (EGD), FLEXIBLE, TRANSORAL, DIAGNOSTIC performed by Marcela Del Valle MD at OR [facility] INJECT DX/THER SUBSTANCE INTERLAMINAR CERVICAL/THORACIC W IMAGE GUIDE 08/17/2019 INJECTION SPINE LUMBAR CERVICAL OR THORACIC performed by Dario Nails DO at OR [facility] KNEE ARTHROSCOPY, DIAGNOSTIC l knee REMOVAL OF TONSILS, UNDER AGE 12 SHOULDER ARTHROSCOPY, BICEPS TENODESIS Right 12/01/2019 ARTHROSCOPY SHOULDER BICEP TENODESIS performed by Judith Condon DO at OR [facility] SHOULDER ARTHROSCOPY/DECOMPRESSION Right 12/01/2019 ARTHROSCOPY SHOULDER SUBACROMIAL DECOMPRESSION performed by Judith Condon DO at OR [facility] Review of patient's allergies indicates: Allergen [...] mouth in the morning. 90 Tablet 3 Polyethylene Glycol 3350 17 GM Oral Packet (Miralax) Mix 1 Packet in 4 to 8 ounces of any beverage and drink by mouth in the morning. 14 Each 0 Spironolactone 25 MG Oral Tablet (Aldactone) [...] over 140 [see chart at bottom of [facility] visit 05/09/24]) 120 mL4 Pioglitazone [...] 8 it has been 80 Tablet 0 Polyethylene Glycol 3350 17 GM/SCOOP Oral Powder [...] mouth in the morning. 30 Tablet 5 Metamucil 0.52 GM Oral Capsule (Psyllium) Take 1 Capsule by mouth in the morning and 1 Capsule at noon and 1 Capsule before bedtime. 30 Capsule 0 Ondansetron HCl 4 MG Oral Tablet Take 1 Tablet by mouth every 8 hours as needed for Nausea. 20 Tablet 0 Alum & Mag Hydroxide-Simeth 400-400-40 MG/5ML Oral Suspension (Mi-Acid II) Take 15 ml every 6 hours as needed for constipation (Patient not taking: Reported on 06/20/2024) 355 mL 3 metFORMIN HCl 500 MG Oral Tablet (Glucophage) Take 2 Tablets by mouth in the morning and 2 Tablets in the evening. 360 Tablet 3 Pantoprazole Sodium 40 MG Oral Tablet Delayed Release (Protonix) TAKE 1 TABLET BY MOUTH TWICE A [id number] Tablet 3 Famotidine 20 MG Oral Tablet (Pepcid) TAKE ONE TABLET BY MOUTH NIGHTLY AT BEDTIME 90 Tablet 3 Spiriva Respimat 2.5 MCG/ACT Inhalation Aerosol Solution (Tiotropium [place] Monohydrate) Inhale 2 Puffs by mouth in the morning. 1 Each 2 No current facility-administered medications for this visit. Objective: BP 140/72 | Pulse 98 | Temp 35.8 C (96.4 F) (Tympanic) | Resp 16 | Ht 1.88 m (6' 2")| Wt (!) 147.8 kg (325 lb 12.8 oz) | SpO2 93% | BMI 41.83 kg/m | BSA 2.78 m GEN: NAD CHEST: CTA B CV: RRR ABD: Soft, NT/ND, No HSM, NABS EXT: s/p left bka Assessment and Plan: Hx of BKA, left (HCC) (Primary) - DURABLE MEDICAL EQUIPMENT orders provided for electric scooter and lift chair which are both medically necessary. Acute pain of right knee - XR KNEE 1-2 VIEWS; Future; Expected date: 06/20/2024 Lumbar disc herniation - oxyCODONE HCl 5 MG Oral Tablet (Oxy IR); Take 1 Tablet by mouth every 8 hours as needed for Pain,Severe. Other orders - Torsemide 10 MG Oral Tablet (Demadex); Take 1 Tablet by mouth in the morning. 35 min with pt and chart review Velasquez Valencia MD documented in this encounter Nursing Notes * Emily Wang MED ASSIST - 06/20/2024 1:20 PM EDT The patient has been properly identified by confirmation of name and date of . Chief Complaint Patient presents with Follow Up Patient is here today to discuss getting a scooter and a lift chair. Will need a DME so insurance will cover. Patient is having trouble breathing for a couple days; patient is having trouble bending, he says his stomach area feels tight. Patient is having difficulty standing on his right leg due to knee pain. Pain has been happening for a while. Patient would like to discuss getting a painkiller stronger than tramodol. Patient would like to discuss something for weight control. documented in this encounter Plan of Treatment Upcoming Encounters Date Type Department Care Team (Latest Contact Info) Description 07/18/2024 10:30 AM EDT Office Visit Pharmacy, [place] [address] [place] [facility] [place] [address] [facility] [address] [place] [address] 07/19/2024 11:20 AM EDT Office Visit [facility] [address] [facility] [phone] Velasquez Valencia MD [address] [place] [facility] [place] [address] 07/20/2024 10:15 AM EDT Office Visit Orthopaedics [address] [place] [address] Augie Dejesus PA-C [address] [place] [address] 07/27/2024 10:15 AM EDT Office Visit [facility] [address] [place], [place] [address] Augie Dejesus PA-C [address] [place] [address] 08/02/2024 11:12 AM EDT Hospital Encounter OR [place], Operating Room, [facility] - 4th [facility] [address] [facility] [place] [phone] Belen Jones, DO [address] [place] [address] 08/02/2024 11:12 AM EDT - 08/02/2024 11:56 AM EDT Surgery OR [place], Operating Room, [facility] - 4th Floor [address] [facility] [place] [phone] Belen Jones, [address] [place], [place] [address] ESOPHAGOGASTRODUODENOSCOPY (EGD), FLEXIBLE, TRANSORAL, ENDOSCOPIC ULTRASOUND 08/03/2024 10:15 AM EDT Office Visit [facility] [address] [place] [address] Augie Dejesus PA-C [address] [place] [address] 08/18/2024 11:00 AM EDT Office Visit [facility] [address] [facility], [place] [phone] Velasquez Valencia MD [address] [facility], [place] [address] 07/09/2025 10:00 AM EDT Office Visit Pulmonary Medicine, [facility] [address] [place] [address] Vishal Wallace MD [address] [place] [id number] Scheduled Procedures Name Priority Associated Diagnoses Date/Ti [...] this encounter Medical Devices Implanted Type Area Plain Goods Hemmer Device Identifier Shelf Expiration Date Model / Serial / Lot Suture Sylva Dbl Load 4.75mm - [id number] Implanted:Qty: 1 on 12/01/2019 by Judith Condon DO at OR [facility] Right: Shoulder [employer] 07/17/2021 AR-2324BCT -2 / / [id number] Suture Sylva Dbl Load 5.5mm - [id number] Implanted:Qty: 1 on 12/01/2019 by Judith Condon DO at OR [facility] Right: Shoulder [employer] 09/16/2021 AR-2323BCT -2 / / [id number] documented as of this encounter Results * XR KNEE 1-2 VIEWS (06/22/2024 12:47 PM EDT) Anatomical Region Laterality Modality Knee, Lower Extremity Computed R adiography 06/26/2024 2:11 PM EDT Narrative 06/26/2024 2:09 PM EDT EXAM: RT XR KNEE 1-2 VIEWS HISTORY: worsening right knee pain COMPARISON:- FINDINGS / IMPRESSION: No acute displaced fracture or dislocation. Mild medial joint space narrowing. Procedure Note Gamal Lloyd MD - 06/26/2024 EXAM: RT XR KNEE 1-2 VIEWS HISTORY: worsening right knee pain COMPARISON:- FINDINGS / IMPRESSION: No acute displaced fracture or dislocation. Mild medial joint spacenarrowing. Velasquez Valencia MD RADIOLOGY (RAD GEN ERAL) documented in this encounter Visit Diagnoses Diagnosis Hx of BKA, left (HCC)- Primary Acute pain of right knee Lumbar disc herniation Displacement of lumbar intervertebral disc without myelopathy Acute pain of right knee Acute pancreatitis documented in this encounter [...] Directives occurred with: Not Discussed Care Teams Cd Technician Relationship Specialty Start Date End Date Velasquez Valencia MD [address] [place] [address] PCP - General Family Medicine 09/09/22 documented as of this encounter
--- OUTSIDE RECORDS SUMMARY | 2024-07-22 15:36 | External Medical Summary | Summary of Care ---
Author Name Unknown Organization [facility] Address [address] [facility] [address] Phone [phone] Care Team Providers Care Shared Services Manager Name Role Phone Velasquez Valencia MD Primary Care Provider +1- [phone] Reason for Visit * Reason Comments Follow Up PT is here with his GF Pt is here for R knee Euflexxa #1 * Precert (Diagnostic Medical) (Within 30 days (routine)) - Authorized Specialty Diagnoses / Procedures Referred By Contac t Referred To Contact Diagnoses Unilateral primary osteoarthritis, right knee Procedures EUFLEXXA, INTRA-ARTICULAR INJ, PER DOSE Casey Smith MD [address] [place] [address] Casey Smith MD [address] [place] [address] Referral ID Status Reason Start Date Expiration Date V isits Requested Visits Authorized [id number] Authorized Precert 07/13/2024 01/10/2025 3 3 Encounter Details Date Type Department Care Team (Latest Contact Info) Description 07/20/2024 10:15 AM EDT Office Visit Orthopaedics [facility] [address] [place] [address] Augie Dejesus PA-C [address] [place] [address] Primary osteoarthritis of right knee* Allergies Active [...] 7.0% ([facility]) Use to check blood sugar once daily as needed 100 Strip 05/09/2024 Active OneTouch Delica Lancets 33GIndications:Typ e 2 diabetes mellitus with hemoglobin A1c goal of less than 7.0% ([facility]) Use to check blood sugars once [...] Respimat 2.5 MCG/ACT Inhalation Aerosol Solution (Tiotropium [place] Monohydrate) Inhale 2 Puffs by mouth in the morning. 1 Each 2 07/04/2024 4 Active Dexcom G6 SensorIndications: Type 2 diabetes mellitus with hemoglobin A1c goal of less than 7.0% ([facility]) Use as directed every 10 days. 9 Each 5 07/18/2024 Active Dexcom G6 TransmitterIndicat ions:Type 2 diabetes mellitus with hemoglobin A1c goal of less than 7.0% ([facility]) Use as directed. Change every 90 [...] mRNA, LNP-s, No Pre serve, 2-Dose Series ([employer]) 10/21/2021,03/01/2021,02/07/2021 H1N1 2009 Influenza, IM 11/04/2009 Pneumococcal Conjugate Vacci ne, 20-valent ([id number]) 07/09/2023 Pneumococcal Polysaccharide PPV23 (Pneumovax) 11/03/2015,02/09/2006 Seasonal [...] pain weight-bearing activity. The patient has a [id number] amputation of the left lower extremity therefore [...] nourished, presents wheelchair today due to a [id number] amputation on the left lower extremity, with [...] called to verify the correctpatient, procedure, equipment, account support rep and site/side marked as required. Patient was prepped and draped in the usual sterile fashion. This chart was completed in part utilizing [employer] Voice Recognition Software. Grammatical errors, random word [...] Description 07/27/2024 10:15 AM EDT Office Visit [facility] [address] [place] [address] Augie Dejesus PA-C [address] [place] [address] 08/02/2024 11:12 AM EDT Hospital Encounter OR [facility], Operating Room, [facility] - 4th Floor [address] [place] [phone] Belen Jones DO [address] [place] [address] 08/02/2024 11:12 AM EDT - 08/02/2024 11:56 AM EDT Surgery OR [facility], Operating Room, [facility] - 4th Floor [address] [place] [phone] Belen Jones DO [address] [place] [address] ESOPHAGOGASTRODUODENOSCOPY (EGD), FLEXIBLE, TRANSORAL, ENDOSCOPIC ULTRASOUND 08/03/2024 10:15 AM EDT Office Visit [facility] [address] [place] [address] Augie Dejesus PA-C [address] [place] [address] 08/18/2024 9:20 AM EDT Office Visit Pharmacy, [place] [address] [facility] [place] [address] [facility] [address] [facility], [place] [address] 08/18/2024 11:00 AM EDT Office Visit Family Practice, [place] [address] [facility] [phone] Velasquez Valencia MD [address] [place] [address] 07/09/2025 10:00 AM EDT Office Visit Pulmonary Medicine, [facility] [address] [place] [address] Vishal Wallace MD [address] [place] [id number] Scheduled Procedures Name Priority Associated Diagnoses Date/Ti [...] this encounter Medical Devices Implanted Type Area Associate Store Manager Device Identifier Shelf Expiration Date Model / Serial / Lot Suture [place] Dbl Load 4.75mm - [id number] Implanted:Qty: 1 on 12/01/2019 by Judith Condon DO at OR [facility] Right: Shoulder [employer] 07/17/2021 AR-2324BCT -2 / / [id number] Suture [place] Dbl Load 5.5mm - [id number] Implanted:Qty: 1 on 12/01/2019 by Judith Condon DO at OR [facility] Right: Shoulder [employer] 09/16/2021 AR-2323BCT -2 / / [id number] documented as of this encounter Procedures Procedure Name Priority Date/Time Associated Diagnosis Comments [place] ARTHROCENTESIS ASPIR&/INJ MAJOR JT/BURSA W/O US Routine 07/20/2024 10:31 AM EDT Primary osteoarthritis of right knee documented in this encounter Results * [place] ARTHROCENTESIS ASPIR&/INJ MAJOR JT/BURSA W/O US (07/20/2024 [...] to verify the correct patient, procedure, equipment, account support rep and site/side marked as required. Patient was [...] Directives occurred with: Not Discussed Care Teams Shared Services Manager Relationship Specialty Start Date End Date Velasquez Valencia MD [address] [place] [address] PCP - General Family Medicine 09/09/22 documented as of this encounter
--- OUTSIDE RECORDS SUMMARY | 2024-07-22 15:36 | External Medical Summary | Summary of Care ---
Author Name Unknown Organization [facility] Address [address] [facility] [address] Phone [phone] Care Team Providers Care Curb Builder Name Role Phone Velasquez Valencia MD Primary Care Provider +1- [phone] Reason for Referral * Evaluate & Treat - Unlimited Visits (Within 30 days (routine)) - Authorized Specialty Diagnoses / Procedures Referred By Contact Referred To Contact Cardiovascular Medicine / Cardiology Diagnoses Acute on chronic diastolic heart failure (HCC) Velasquez Valencia MD [address] [place] [address] Referral ID Status Reason Start Date Expiration Date Visits Requested Visits Authorized [id number] Authorized Specialty Services Required 07/19/2024 999 999 Question Answer Referral Priority Within 30 days (routine) Where should this appointment be scheduled? [facility] To which of the following clinics are you referring your patient? [facility] Reason for Visit * Reason Onset Date Comments Hospital Follow-Up Hospital Follow-Up 07/19/2024 Encounter Details Date Type Department Care Team (Late st Contact Info) Description 07/19/2024 11:20 AM EDT [facility] [address] [place] [address] Velasquez Valencia MD [address] [place] [facility] [place] [address] Acute on chronic diastolic heart failure (HCC)*; Hx of BKA, left (HCC); COPD, moderate (HCC); Type 2 diabetes mellitus with hemoglobin A1c goal of less than 7.0% ([facility]); Hospital discharge follow-up Allergies Active Allergy Reactions [...] [facility] visit 05/09/24], Reported on 05/09/2024 traMADol HCl [...] of less than 7.0% ([facility]) Use to check blood sugar once daily as needed 100 Strip 05/09/2024 Active OneTouch Delica Lancets 33GIndications:Ty pe 2 diabetes mellitus with hemoglobin A1c goal of less than 7.0% ([facility]) Use to check blood sugars once [...] oxyCODONE HCl 5 MG Oral Tablet (Oxy IR)Indications:Mrecy mbar disc herniation Take 1 Tablet by [...] Respimat 2.5 MCG/ACT Inhalation Aerosol Solution (Tiotropium Simon Monohydrate) Inhale 2 Puffs by mouth in the morning. 1 Each 2 07/04/2024 4 Active Dexcom G6 SensorIndications :Type 2 diabetes [...] Capsule by mouth at bedtime. 07/19/2024 Active Losartan Potassium 100 MG Oral Tablet (Cozaar) Take 1 Tablet by mouth in the morning. 90 Tablet 3 10/07/2023 4 Discontinu ed(Medicat ion/Dose Changed) hydroCHLOROthiazi de 25 MG Oral Tablet (Hydrodiuril) Take 1 Tablet by mouth in the morning. 09/22/2023 4 Discontinu ed(Medicat ion/Dose Changed) documented as of this encounter (statuses as [...] IM 11/04/2009 Pneumococcal Conjugate Vacci ne, 20-valent ([id number]) 07/09/2023 Pneumococcal Polysaccharide PPV23 (Pneumovax) 11/03/2015,02/09/2006 Seasonal [...] Sign Reading Time Taken Comments Blood Pressure 128/72 07/19/2024 11:27 AM EDT Pulse 100 07/19/2024 11:27 AM EDT Temperature 36.5 C (97.7 F) 07/19/2024 1 1:27 AM EDT Respiratory Rate 20 07/19/2024 11:2 7 AM EDT Oxygen Saturation 92% 07/19/2024 11: 27 AM EDT Inhaled Oxygen Concentration - - Weight 159.4 kg (351 lb 6.4 oz) 024 11:27 AM EDT Height 188 cm (6' 2") 07/19/2024 11:27 AM EDT Body Mass Index 45.12 07/19/2024 11:27 AM EDT documented in this encounter Functional [...] Progress Notes * Velasquez Valencia MD - 07/19/2024 12:32 PM EDT Subjective: Bry Cordero Hermilo Jr. is a 48 year old male here today for Chief Complaint Patient presents with Hospital Follow-Up Hospital Follow-Up Pt presents for hospital follow up. Admitted to [facility] 07/13/24 - 07/16/24 with acute on chronic diastolic heart failure. Pt had 2 days of worsening chest and abdominal tightness and fullness. Heavy breathing and increased shortness of breath. Significant weight gain. Elevated BP in ED. Multiple med changes noted. Pt is not sure if he lost weight in the hospital and states that he urinated about as much as usual. He was given a few days of IV diuretic and then had torsemide dose increased from 10 mg daily to 20 mg daily. He is not sure if he has gained weight since discharge. He feels that he may be getting more swelling and shortness of breath and feels that abd appears tight and more distended. No cardiology follow up scheduled yet. He does have appt tomorrow for prosthetic. Med changes noted and updated on med list. Past Medical History: Diagnosis Date Abscess of [...] performed by Judith Condon DO at OR [facility] COLONOSCOPY, DIAGNOSTIC (RECTUM) 04/18/2015 adenomatous polyp, repeat 5 yrs/[facility] COLONOSCOPY, DIAGNOSTIC (RECTUM) 04/15/2023 poor prep, repeat / [facility] COLONOSCOPY, DIAGNOSTIC (RECTUM) N/A 02/22/2024 normal/recall 5 years/COLONOSCOPY FLEXIBLE PROXIMAL DIAGNOSTIC performed by Marcela Del Valle MD at OR [facility] EGD, FLEXIBLE, DIAGNOSTIC 10/17/2014 mild-mod inflammation, repeat 1-2 mo/[facility] EGD, FLEXIBLE, DIAGNOSTIC 04/17/2015 normal bx/inpt [facility] EGD, FLEXIBLE, DIAGNOSTIC 05/08/2019 reflux esophagitis, gastritis, duodenitis, repeat 6 wks / [facility] EGD, FLEXIBLE, DIAGNOSTIC 08/18/2019 normal-EGD/[place] EGD, FLEXIBLE, DIAGNOSTIC N/A 05/02/2020 biopsies normal/EGD EGD, FLEXIBLE, DIAGNOSTIC N/A 02/22/2024 antral gastritis/biopsies normal/ESOPHAGOGASTRODUODENOSCOPY (EGD), FLEXIBLE, TRANSORAL, DIAGNOSTIC performed by Marcela Del Valle MD at OR [facility] INJECT DX/THER SUBSTANCE INTERLAMINAR CERVICAL/THORACIC W IMAGE GUIDE 08/17/2019 INJECTION SPINE LUMBAR CERVICAL OR THORACIC performed by Dario Nails DO at OR [facility] KNEE ARTHROSCOPY, DIAGNOSTIC l knee REMOVAL OF TONSILS, UNDER AGE 10 SHOULDER ARTHROSCOPY, BICEPS TENODESIS Right 12/01/2019 ARTHROSCOPY SHOULDER BICEP TENODESIS performed by Judith Condon DO at OR [facility] SHOULDER ARTHROSCOPY/DECOMPRESSION Right 12/01/2019 ARTHROSCOPY SHOULDER SUBACROMIAL DECOMPRESSION performed by Judith Condon DO at OR [facility] Review of patient's allergies indicates: Allergen Reactions Nsaids Gastric problems Other Reaction(s): gastroparesis, kidney problems, use with caution : hx esophagus damage Actos [Pioglitazone] Ceclor [Cefaclor] Unknown As child Jardiance [Empagliflozin] [...] bottom of [facility] visit 05/09/24]) 120 mL4 traMADol HCl 50 MG Oral Tablet (Ultram) Take 1 Tablet by mouth every 6 hours as needed for Pain, Severe. 40 Tablet 0 Lidocaine 4 % External Patch [...] TAKE 1 TABLET BY MOUTH TWICE A [id number] Tablet 3 Famotidine 20 MG Oral Tablet (Pepcid) TAKE ONE TABLET BY MOUTH NIGHTLY AT BEDTIME 90 Tablet 3 Spiriva Respimat 2.5 MCG/ACT Inhalation Aerosol Solution (Tiotropium Simon Monohydrate) Inhale 2 Puffs by mouth in the morning. 1 Each 2 Dexcom G6 Sensor Use as directed every 10 days. 9 Each 5 Dexcom G6 Transmitter Use as directed. Change every 90 days 1 Each 5 Alum & Mag Hydroxide-Simeth 400-400-40 MG/5ML Oral Suspension (Mi-Acid II) Take 15 ml every 6 hours as needed for constipation (Patient not taking: Reported on 06/20/2024) 355 mL 3 No current facility-administered medications for this visit. Objective: BP 128/72 | Pulse 100 | Temp 36.5 C (97.7 F) (Tympanic) | Resp 20 | Ht 1.88 m (6' 2") | Wt (!) 159.4 kg (351 lb 6.4 oz) | SpO2 92% | BMI 45.12 kg/m | BSA 2.89 m GEN: NAD HEENT: Benign NECK: Supple with no LAD, TM, JVD CHEST: CTA B CV: RRR ABD: Soft, NT/ND, No HSM, NABS EXT: No c,c,e Assessment and Plan: Acute on chronic diastolic heart failure (HCC) (Primary) - CARDIOLOGY REFERRAL OP - BASIC METABOLIC PANEL; Future; Expected date: 07/19/2024 -continue current meds. Pt is in process of getting scale for home weights. -with concerns for increased symptoms and swelling since discharge, trial torsemide 30 mg daily Thurs and Fri. Will call Fri for an update. Hx of BKA, left ([facility]) - DURABLE MEDICAL EQUIPMENT - bariatric walker suggested by PT COPD, moderate ([facility]) - [id number], QN; Future; Expected date: 07/19/2024 Type 2 diabetes mellitus with hemoglobin A1c goal of less than 7.0% ([facility]) - DURABLE MEDICAL EQUIPMENT Hospital discharge follow-up - DISCH MED RECON CUR MED LIZY Valencia MD documented in this encounter Nursing Notes * Radha Fair LPN - 07/19/2024 11:26 AM EDT The patient has been properly identified by confirmation of name and date of . Chief Complaint Patient presents with Hospital Follow-Up Patient discharged from hospital. Unable to take Actos and ibuprofen. 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 and bariatric walker documented in this encounter Plan of Treatment Upcoming Encounters Date Type Department Care Team (Latest Contact Info) Description 07/20/2024 10:15 AM EDT Office Visit [facility] [address] [place] [address] Augie Dejesus PA-C [address] [place] [address] 07/27/2024 10:15 AM EDT Office Visit [facility] [address] [place] [address] Augie Dejesus PA-C [address] [place] [address] 08/02/2024 11:12 AM EDT Hospital Encounter OR [facility], Operating Room, [facility] - 4th Floor [address] [facility] [place] [phone] Belen Jones, DO [address] [place] [address] 08/02/2024 11:12 AM EDT - 08/02/2024 11:56 AM EDT Surgery OR [facility], Operating Room, [facility] - 4th Floor [address] [facility] [place] [phone] Belen Jones, DO [address] [place] [address] ESOPHAGOGASTRODUODENOSCOPY (EGD), FLEXIBLE, TRANSORAL, ENDOSCOPIC ULTRASOUND 08/03/2024 10:15 AM EDT Office Visit [facility] [address] [place] [address] Augie Dejesus PA-C [address] [place] [address] 08/18/2024 9:20 AM EDT Office Visit [address] [place] [address] [facility] [address] [facility], [place] [address] 08/18/2024 11:00 AM EDT [facility] [place] [address] [facility] [address] Velasquez Valencia MD [address] [facility], [place] [address] 07/09/2025 10:00 AM EDT Office Visit Pulmonary Medicine, [facility] [address] [place] [address] Vishal Wallace MD [address] [place] [address] Pending Results Name Type Priority Associated Diagnoses Date /Time [id number], QN Lab Routine COPD, moderate (HCC) 07/19/2024 12:39 PM EDT BASIC METABOLIC PANEL Lab Routine Acute on chronic diastolic heart failure (HCC) 07/19/2024 12:39 PM EDT Scheduled Orders Name Type Priority Associated Diagnoses Orde r Schedule [id number], QN Lab Routine COPD, moderate (HCC) Expected: 07/19/2024 (Approximate), Expires: 07/19/2025 BASIC METABOLIC PANEL Lab Routine Acute on chronic diastolic heart failure (HCC) Expected: 07/19/2024 (Approximate), Expires: 07/19/2025 Scheduled Procedures Name Priority Associated Diagnoses Date/Ti me ESOPHAGOGASTRODUODENOSCOPY ( EGD), FLEXIBLE, TRANSORAL, ENDOSCOPIC ULTRASOUND Acute pancreatitis 08/02/2024 11:12 AM EDT COLONOSCOPY FLEXIBLE PROXIMA L DIAGNOSTIC Recall Screening for colon cancer Scheduled Referrals Name Type Priority Associated Diagnoses Orde r Schedule CARDIOLOGY REFERRAL OP Referral Within 30 days (routine) Acute on chronic diastolic heart failure (HCC) Ordered: 07/19/2024 Health Maintenance Due Date Last Done Comments [...] (Patient Declined After Education) HbA1c 11/09/2024 05/09/2024, 0510/2023, 01/14/2024, Additional history exists Albumin/Creatinine Ratio 01/13/2025 024, 01/05/2023, 09/01/2021, Additional history exists O2 ASSESSMENT COMPLETED IN PAST YEAR FOR COPD 02/21/2025 02/22/2024 Depression Screening 04/19/2025 04/19/2024 GFR 05/09/2025 05/09/2024, 03/19, 04/12/2024, Additional history exists DISCUSS TOBACCO CESSATION (REFER TO SMARTSET #[id number]) 07/19/2025 07/19/2024, 10/16/2022 DTap/Tdap Vaccines (2 - [...] this encounter Medical Devices Implanted Type Area Whipper Device Identifier Shelf Expiration Date Model / Serial / Lot Suture Pioneer Dbl Load 4.75mm - [id number] Implanted:Qty: 1 on 12/01/2019 by Judith Condon DO at OR [facility] Right: Shoulder [employer] 07/17/2021 AR-2324BCT -2 / / [id number] Suture Pioneer Dbl Load 5.5mm - [id number] Implanted:Qty: 1 on 12/01/2019 by Judith Condon DO at OR [facility] Right: Shoulder [employer] 09/16/2021 AR-2323BCT -2 / / [id number] documented as of this encounter Visit Diagnoses Diagnosis Acute on chronic diastolic heart failure (HCC)- Primary Acute on chronic diastolic heart failure Hx of BKA, left (HCC) COPD, moderate (HCC) Chronic airway obstruction, not elsewhere classified Type 2 diabetes mellitus with hemoglobin A1c goal of less than 7.0% (HCC) Hospital discharge follow-up Other follow-up examination Acute pancreatitis documented in this encounter Advance [...] Directives occurred with: Not Discussed Care Teams Curb Builder Relationship Specialty Start Date End Date Velasquez Valencia MD [address] [place] [address] PCP - General Family Medicine 09/09/22 documented as of this encounter
--- OUTSIDE RECORDS SUMMARY | 2024-07-22 15:36 | External Medical Summary | Summary of Care ---
Author Name Unknown Organization [facility] Address [address] [facility] [place] [address] Phone [phone] Care Team Providers Care Optometry Teacher Name Role Phone Velasquez Valencia MD Primary Care Provider +1- [phone] Reason for Visit * Reason Onset Date Comments Forms Request 07/13/2024 [facility] Encounter Details Date Type Department Care Team (Late st Contact Info) Description 07/13/2024 Telephone [facility] [address] [place] [address] Velasquez Valencia MD [address] [place] [address] Forms Request ([facility]) Allergies Active Allergy Reactions Criticality Noted Date [...] over 140 [see chart at bottom of [facility] visit 05/09/24], Reported on 05/09/2024 [...] [facility]) Use to check blood sugars once [...] ([facility]) Take 2 Tablets by mouth in [...] Respimat 2.5 MCG/ACT Inhalation Aerosol Solution (Tiotropium [place] Monohydrate) Inhale 2 Puffs by mouth in [...] mRNA, LNP-s, No Pre serve, 2-Dose Series (GrowBLOX) 10/21/2021,03/01/2021,02/07/2021 H1N1 2009 Influenza, IM 11/04/2009 Pneumococcal Conjugate Vacci ne, 20-valent ([id number]) 07/09/2023 Pneumococcal Polysaccharide PPV23 (Pneumovax) 11/03/2015,02/09/2006 Seasonal [...] Telephone Encounter - Maura Ramirez LPN - 07/13/2024 6:50 PM EDT Received fax from [facility] for RX order, reviewed and signed by provider and faxed back and fims. documented in this encounter Plan of Treatment Upcoming Encounters Date Type Department Care Team (Latest Contact Info) Description 07/18/2024 10:30 AM EDT Office [facility], [place] [address] [facility] [address] [place] [address] [facility] [address] 08/02/2024 11:12 AM EDT Hospital Encounter OR [facility], Operating Room, [facility] - 4th Floor [address] [facility] [place] [phone] Belen Jones, DO [address] [place] [address] 08/02/2024 11:12 AM EDT - 08/02/2024 11:56 AM EDT Surgery OR [facility], Operating Room, [facility] - 4th Floor [address] [facility] [place] [phone] Belen Jones, DO [address] [place] [address] ESOPHAGOGASTRODUODENOSCOPY (EGD), FLEXIBLE, TRANSORAL, ENDOSCOPIC ULTRASOUND 08/18/2024 11:00 AM EDT Office Visit [facility] [place] [address] [facility] [place] [phone] Velasquez Valencia MD [address] [facility] [place] [address] 07/09/2025 10:00 AM EDT Office Visit Pulmonary Medicine, [facility] [address] [place] [address] Vishal Wallace MD [address] [place] [address] Scheduled Procedures Name Priority Associated Diagnoses Date/Ti [...] this encounter Medical Devices Implanted Type Area Slip Cover Maker Device Identifier Shelf Expiration Date Model / Serial / Lot Suture Barre Dbl Load 4.75mm - [id number] Implanted:Qty: 1 on 12/01/2019 by Judith Condon DO at OR [facility] Right: Shoulder [employer] 07/17/2021 AR-2324BCT -2 / / [id number] Suture Barre Dbl Load 5.5mm - [id number] Implanted:Qty: 1 on 12/01/2019 by Judith Condon DO at OR [facility] Right: Shoulder [employer] 09/16/2021 AR-2323BCT -2 / / [id number] documented as of this encounter Advance Directives [...] Directives occurred with: Not Discussed Care Teams Optometry Teacher Relationship Specialty Start Date End Date Velasquez Valencia MD [address] [place] [address] PCP - General Family Medicine 09/09/22 documented as of this encounter
--- OUTSIDE RECORDS SUMMARY | 2024-07-22 15:36 | External Medical Summary | Summary of Care ---
Author Name Unknown Organization [facility] Address [address] [facility] [place] [address] Phone [phone] Care Team Providers Care Rn Stars Name Role Phone Velasquez Valencia MD Primary Care Provider +1- [phone] Reason for Visit * Reason Onset Date Comments Appointment 07/17/2024 Encounter Details Date Type Department Care Team (Late st Contact Info) Description 07/17/2024 Telephone Orthopaedics [facility] [address] [place] [address] Augie Dejesus PA-C [address] [place] [address] Appointment Allergies Active Allergy Reactions Criticality Noted [...] of [place] visit 05/09/24], Reported on 05/09/2024 traMADol HCl [...] less than 7.0% ([facility]) Use to check blood sugar once daily as needed 100 Strip 05/09/2024 Active OneTouch Delica Lancets 33GIndications:Typ e 2 diabetes mellitus with hemoglobin A1c goal of less than 7.0% ([facility]) Use to check blood sugars once daily [...] Respimat 2.5 MCG/ACT Inhalation Aerosol Solution (Tiotropium [place] Monohydrate) Inhale 2 Puffs by mouth in [...] mRNA, LNP-s, No Pre serve, 2-Dose Series ([employer]) 10/21/2021,03/01/2021,02/07/2021 H1N1 2009 Influenza, IM 11/04/2009 Pneumococcal Conjugate Vacci ne, 20-valent ([id number]) 07/09/2023 Pneumococcal Polysaccharide PPV23 (Pneumovax) 11/03/2015,02/09/2006 Seasonal [...] Encounter - Rhea Carr MED ASSIST - 07/17/2024 11:39 AM EDT I looked in patients chart regarding this. Patient did call insurance and spoke with them directly and the Euflexxa has been approved for right knee. Auth # [id number] Valid: 07/13/24-01/10/25 * Telephone Encounter - Lenka Enciso, DAMION - 07/17/2024 11:14 AM EDT Pt calling stating he spoke to his insurance company and they said he is approved for the injections he doesn't have any authorization number. He tired to call P family but couldn't get ahold of the lady he's been speaking too. I tried to explain to him that its not us who needs the auth its his insurance company/plan. While trying to explain this to him he hung up the phone * Telephone Encounter - Lubna Flood OSA - 07/17/2024 7:38 AM EDT Pt's girlfriend is calling, she is coming in today 12.30 to get and injection with Dr. Pérez. Patient, Bry needs to get gel injection in his R knee. She said they had gotten a call that he was approved for these. He is an amputee and she needs to bring him in. She is asking if she can bring him in today. I hadlooked for an opening and there wasn't any, but she is asking if he can be squeezed in, she is trying to make all her travels count. He is willing to see anyone if he can be fit in at [facility] today. Can this be arranged? The best number to call her back is [phone], Ni. documented in this encounter Plan of Treatment Upcoming Encounters Date Type Department Care Team (Latest Contact Info) Description 07/20/2024 10:15 AM EDT Office Visit Orthopaedics [facility] [address] [place] [address] Augie Dejesus PA-C [address] [place] [address] 07/27/2024 10:15 AM EDT Office Visit Orthopaedics [facility] [address] [place] [address] Augie Dejesus PA-C [address] [address] 08/02/2024 11:12 AM EDT Hospital Encounter [facility], [facility], [facility] - 4th Floor [address] [facility] [place] [phone] Belen Jones, DO [address] [place] [address] 08/02/2024 11:12 AM EDT - 08/02/2024 11:56 AM EDT Surgery [facility], Operating Room, [facility] - 4th Floor [address] [facility] [place] [address] Belen Jones, DO [address] [place] [address] ESOPHAGOGASTRODUODENOSCOPY (EGD), FLEXIBLE, TRANSORAL, ENDOSCOPIC ULTRASOUND 08/03/2024 10:15 AM EDT Office Visit Orthopaedics [facility] [address] [place] [address] Augei Dejesus PA-C [address] [place] [address] 08/18/2024 9:20 AM EDT Office Visit Pharmacy, [place] [address] [facility] [place] [address] [facility] [address] [facility] [place] [address] 08/18/2024 11:00 AM EDT Office Visit [facility] [address] [facility] [phone] Velasquez Valencia MD [address] [facility] [address] 07/09/2025 10:00 AM EDT Office Visit Pulmonary Medicine, [facility] [address] [place] [address] RodrigoVishal coats MD [address] [place] [address] Scheduled Procedures Name Priority Associated Diagnoses Date/Ti [...] 02/22/2024 Depression Screening 04/19/2025 04/19/2024 GFR 05/09/2025 07/19/2024, 04/18, 04/13/2024, Additional history exists DISCUSS TOBACCO CESSATION (REFER [...] encounter Medical Devices Implanted Type Area Operations Management Professionals Device Identifier Shelf Expiration Date Model / Serial / Lot Suture [place] Dbl Load 4.75mm - [id number] Implanted:Qty: 1 on 12/01/2019 by Judith Condon DO at OR [facility] Right: Shoulder [employer] 07/17/2021 AR-2324BCT -2 / / [id number] Suture [place] Dbl Load 5.5mm - [id number] Implanted:Qty: 1 on 12/01/2019 by Judith Condon DO at OR [facility] Right: Shoulder [employer] 09/16/2021 AR-2323BCT -2 / / [id number] documented as of this encounter Advance Directives [...] occurred with: Not Discussed Care Teams Rn Stars Relationship Specialty Start Date End Date Velasquez Valencia MD [address] [place] [address] PCP - General Family Medicine 09/09/22 documented as of this encounter
--- OUTSIDE RECORDS SUMMARY | 2024-07-22 15:36 | External Medical Summary | Summary of Care ---
Author Name Unknown Organization [facility] Address [address] [address] Phone [phone] Care Team Providers Care Regulatory Consultant Name Role Phone Velasquez Valencia MD Primary Care Provider [phone]- [phone] Reason for Visit * Reason Onset Date Comments Precert Denied 07/04/2024 Euflexxa Encounter Details Date Type Department Care Team (Late st Contact Info) Description 07/04/2024 Telephone Orthopaedics [facility] [address] [place] [address] Augie Dejesus PA-C [address] [facility] [place] [address] Precert Denied (Euflexxa ) Allergies Active Allergy Reactions Criticality Noted Date Comments Cefaclor Unknown 07/26/2018 As child Empagliflozin Other (Please comment) 05/16/2021 DKA with hospitalization Nsaids High 04/19/2019 Gastric problems Other Reaction(s): gastroparesis, kidney problems, use with caution : hx esophagus damage documented as of this encounter (statuses as of 07/14/2024) Medications Medication Sig Dispensed Refills Start Date [...] over 140 [see chart at bottom of [facility] visit 05/09/24], Reported on 05/09/2024 [...] hemoglobin A1c goal of less than 7.0% ([facility]) Use to check blood sugar once daily as needed 100 Strip 05/09/2024 Active OneCherri Shaver 33GIndications:Typ e 2 diabetes mellitus with hemoglobin A1c goal of less than 7.0% ([facility]) Use to check blood sugars [...] hemoglobin A1c goal of less than 7.0% ([facility]) Take 2 Tablets by mouth in [...] Respimat 2.5 MCG/ACT Inhalation Aerosol Solution (Tiotropium [place] Monohydrate) Inhale 2 Puffs by mouth in the morning. 1 Each 2 07/04/2024 4 Active documented as of this encounter (statuses as of 07/14/2024) Active Problems Problem Noted Date Diagnosed Date [...] as of this encounter (statuses as of 07/14/2024) Resolved Problems Problem Noted Date Diagnosed Date [...] as of this encounter (statuses as of 07/14/2024) Immunizations Name Administration Dates Next Due COVID-19 mRNA, LNP-s, No Pre serve, 2-Dose Series (Pfizer) 10/21/2021,03/01/2021,02/07/2021 H1N1 2009 Influenza, IM 11/04/2009 Pneumococcal Conjugate Vacci ne, 20-valent (Edhtnpd28) 07/09/2023 Pneumococcal Polysaccharide PPV23 (Pneumovax) 11/03/2015,02/09/2006 Seasonal [...] Telephone Encounter - Nu Munson OSA - 07/14/2024 6:23 AM EDT Denied See referral message * Telephone Encounter - Nu Munson OSA - 07/13/2024 5:06 AM EDT [facility] Authorization Submission Submission Information: Medication: EUFLEXXA Portal used: PromptPA Insurance: [facility] Authorization #/Lombardo: [id number] * Telephone Encounter - Rhea Carr MED ASSIST - 07/12/2024 3:50 PM EDT Addended note is from the office visit dated 07/04 * Telephone Encounter - Mehnaz Frederick OSA - 07/12/2024 3:43 PM EDT Rhea, Where can I look to see the addended note? Is it in the patients chart or in this telephone encounter? Thanks Please return only to [phone] * Telephone Encounter - Rhea Carr MED [...] 07/07/2024 10:22 AM EDT They are the [facility] guidelines for approval. He can try call [facility] Family directly. * Telephone Encounter - [...] the above? * Telephone Encounter - Nu Mnuson OSA - 07/05/2024 8:57 AM EDT [facility] Authorization Submission Submission Information: Medication: EUFLEXXA [facility]: [facility]: [facility] Authorization #/Lombardo: [id number] * Telephone Encounter - Rhea Carr MED ASSIST - 07/04/2024 3:33 PM EDT Orthopaedics Pre-Cert Request Medication/Disease State Information: Medication: Hyaluronate- Euflexxa (J7323): inject 20 mg (2 mL) once weekly for 3 weeks (total of 3 injections). Route to [id number] Is there radiological proof(x-ray, cat scan, mri [...] 10:30 AM EDT Office Visit Pharmacy, [address] [address] [facility] [address] [place] [address] 08/02/2024 11:12 AM EDT Hospital Encounter OR [facility], Operating Room, [facility] - 4th Floor [address] [place] [phone] Belen Jones, DO [address] [place] [id number] 08/02/2024 11:12 AM EDT - 08/02/2024 11:56 AM EDT Surgery OR [facility], Operating Room, [facility] - 4th Floor [address] [place] [phone] Belen Jones DO [address] [place] [id number] ESOPHAGOGASTRODUODENOSCOPY (EGD), FLEXIBLE, TRANSORAL, ENDOSCOPIC ULTRASOUND 08/18/2024 11:00 AM EDT Office Visit [facility] [address], [place] [id number] [facility]quez Valencia [facility] [address] [facility] [address] 07/09/2025 10:00 AM EDT Office Visit Pulmonary Medicine, [facility] [address] [place] [address] Vishal Wallace MD [address] [place] [address] Scheduled Procedures Name Priority Associated Diagnoses Date/Ti [...] 2018 DISCUSS TOBACCO CESSATION (REFER TO SMARTSET #8847) 10/16/2023 10/16/2022 Zoster Vaccines (1 of 2) [...] this encounter Medical Devices Implanted Type Area Utility [employer] Device Identifier Shelf Expiration Date Model / Serial / Lot Suture [place] Dbl Load 4.75mm - [id number] Implanted:Qty: 1 on 12/01/2019 by Judith Condon DO at OR [facility] Right: Shoulder [employer] 07/17/2021 AR-2324BCT -2 / / [id number] Suture [place] Dbl Load 5.5mm - [id number] Implanted:Qty: 1 on 12/01/2019 by Judith Condon DO at OR [facility] Right: Shoulder [employer] 09/16/2021 AR-2323BCT -2 / / [id number] documented as of this encounter Advance Directives [...] Directives occurred with: Not Discussed Care Teams Regulatory Consultant Relationship Specialty Start Date End Date Velasquez Valencia MD [address] [place] [address] PCP - General Family Medicine 09/09/22 documented as of this encounter
[2024-07-22] MEDS: ONDANSETRON INJ 2 MG/ML 2 ML VIAL IV STA ×2 (15:44→17:21)
--- NOTE | 2024-07-22 16:30 | Emergency Department Note ---
Impression & Plan Abdominal pain, PASHA (acute kidney injury), Elevated lactic acid level, Hypomagnesemia ED Provider Note HISTORY OF PRESENT ILLNESS: Patient is a 48-year-old male presenting with abdominal pain and vomiting. Patient complains of diffuse abdominal pain that he states started yesterday evening. He reports the pain continued throughout the night and into this morning. He started vomiting this morning, prompting him to present to the ER. He locates the pain diffusely across his abdomen and states it radiates into his back. He denies any dysuria or hematuria. Denies any chest pain or shortness of breath. He has an abdominal surgical history significant for an appendectomy. He denies any recent fevers. Denies any recent travel. Denies any recent sick contact exposures. ROS: as above PHYSICAL EXAM: Constitutional: Patient appears in no acute distress. Morbidly obese HENT: Head: Normocephalic and atraumatic. Eyes: EOMI, PERRL Mouth/Throat: Mucous membranes moist. Neck: Trachea midline. Neck supple. Cardiovascular: RRR, No murmurs, rubs or gallops. Intact distal pulses. Pulmonary/Chest: No respiratory distress. Breath sounds clear and equal bilaterally. No wheezes or rales. No chest wall tenderness to palpation. Abdominal: Abdomen soft, no rebound or guarding. RUQ TTP Musculoskeletal: No edema, tenderness or deformity noted. Left BKA Skin: Warm and dry. No rash, erythema, pallor or cyanosis Psychiatric: Appropriate mood and affect for situation. Neurological: Alert and keenly responsive. CN II-XII grossly intact, moving all extremities equally and fully. MDM: - Vitals signs showed hypertension and tachycardia. - History obtained via patient. History as above. - Chronic conditions affecting care: HTN; HLD; COPD; DAMION; DM-2; GERD - Differential diagnoses include, but are not limited to: Biliary colic; cholangitis; cholecystitis; hepatitis; right lower lobe pneumonia; pulmonary embolism; pyelonephritis; perforated duodenal ulcer; ischemic colitis - Order placed for continuous cardiac monitoring. At this time, monitor showed rate of 111 bpm with normal sinus rhythm, per my interpretation. - External medical records reviewed. Discharge summary dated 07/18/2024 was reviewed. Patient was admitted that time for acute on chronic respiratory failure with hypercapnia. - EKG interpreted by myself showed normal sinus rhythm. Rate 97 bpm. QT 350. No acute ischemic changes. Incomplete right bundle branch block. - Laboratory workup interpreted by myself showed normal WBC; slight hyponatremia (Na 133); PASHA (Cr 1.51); hyperglycemia (glucose 276); elevated lactate (3.2); hypomagnesemia (Mg 1.4); normal lipase; normal troponin - Patient given 1L NS, 4 mg IV zofran and 50 mcg IV fentanyl on initial arrival. He was still complaining of abdominal pain and given an additional 75 mcg IV fentanyl and 1 g IV Tylenol. Patient was writhing around in pain and hypertensive and tachycardic on reassessment, repeat lactate slightly trending down to 2.2. He was given 1 g IV Dilaudid. - CT abdomen/pelvis with IV contrast negative for acute pathology. - VBG shows slight acidosis, likely secondary to elevated lactic acid levels. Patient's lactic acidosis may be secondary to his metformin use. - Patient given 1g IV magnesium for electrolyte replacement. - Discussed case with surgical MODESTO who came to evaluate the patient. Lower concern for potential ischemic colitis, given his negative CT imaging. However, will admit to hospital service for further evaluation and with surgery on consultation. - Discussion was had with case monitor about patient's case and need for admission - Hospitalist, Dr. Brown, consulted for admission - [facility] 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 Garcia Morbid obesity Chronic respiratory failure with hypercapnia Diabetic peripheral neuropathy associated with type 2 diabetes mellitus Loss of protective sensation of skin of foot Epigastric abdominal pain Encounter for pre-operative examination Colon polyp Medical History Arthritis Low magnesium level History of RSV infection & flu a few months ago. Tachycardia chronic high heart rate - unknown etiology - a few months ago increased dose of metoprolol. Rhinovirus dx May 23 [facility] & another illness dx - ? name of /antibiotic and inhalers for. feeling better: only symptom : sore throat. COPD (chronic obstructive pulmonary disease) ? dx of Peripheral neuropathy Diabetes mellitus, type 2 Hypertension Tobacco use Restrictive lung disease Elevated liver function tests History of DVT (deep vein thrombosis) "years ago">no known cause Tussive syncope "occurred only one time, no recent issues" Esophagitis Osteoarthritis Hx of pancreatitis resolved GERD (gastroesophageal reflux disease) Cardiac murmur A CHILD Erectile dysfunction MRSA (methicillin resistant Staphylococcus aureus) carrier over 2 yrs ago>"not sure where it was" Intellectual disability Obstructive sleep apnea cpap Obesity IBS (irritable bowel syndrome) History of ventricular tachycardia "nonsustained" Surgical History History of appendectomy 02/10/2023 History of reduction of nasal fracture 09/25/21-Dr. Garcia Status post incision and drainage LLE History of shoulder surgery right-2019 H/O foot surgery LEFT-2018 History of arthroscopy LEFT [id number] History of esophagogastroduodenoscopy (EGD) History of colonoscopy with most recent attempt: failed prep. Told would need a 2 day prep prior to colonoscopy in Sep 2023. History of tooth extraction History of tonsillectomy and adenoidectomy 1979 Family History Brother Family history of diabetes mellitus Environmental allergies Asthma Mother Family history of diabetes mellitus Hypertension Environmental allergies Father Family history of diabetes mellitus Hypertension Heart disease Grandfather (Paternal) Lung cancer smoker Aunt Bleeding disorder Other No family history of adverse response to anesthesia Social History Smoking Status: Current every day smoker Tobacco Type: Cigarettes Age Started Using Tobacco: 14; Cigarettes Per Day: 1 pack; Second Hand Exposure: No; Do You Dip or Chew Tobacco: No; Hx Alcohol Use: Yes Alcohol type: beer Alcohol Intake Frequency: Monthly or Less Alcohol Intake Frequency Comment: seldom, a couple times per year if that per pt Hx Substance Use: No Preferred Language: Armenian Communication Ability: Effective Director Government Required: No Beliefs That Will Affect Care: None marital status: / marital status details: single at this time Current Living Situation: Significant Other Current Living Situation Comment: with Ni and dog, in home, 1 JING current occupational status: employed 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 Cephalosporins Allergy Unknown Unknown Verified 07/13/24 21:47 empagliflozin AdvReac Unknown put me Verified 07/13/24 21:47 [From Jardiance] into ketoacidosis? NSAIDS (Non-Steroidal AdvReac Unknown use with Verified 07/13/24 21:47 Anti-Inflamma caution : hx esophagus damage Home Meds Home Medications Medication Instructions Recorded Confirmed insulin aspart U-100 100 unit/mL 18 unit subcut TID 06/09/19 07/13/24 (3 mL) subcutaneous pen (Novolog FlexPen U-100 Insulin aspart) dicyclomine 10 mg capsule 10 mg PO QID PRN Diarrhea 05/01/20 07/13/24 famotidine 20 mg tablet 20 mg PO HS 07/13/20 07/13/24 pantoprazole 40 mg tablet,delayed 40 mg PO BID 02/25/21 07/13/24 release metformin 500 mg tablet 1,000 mg PO BID 08/26/21 07/13/24 cyclobenzaprine 10 mg tablet 10 mg PO HS muscle spasms 09/06/22 07/13/24 gabapentin 100 mg capsule See Rx Instructions .Route .COMPLEX 09/06/22 07/13/24 insulin glargine 100 unit/mL (3 40 unit subcut BID 09/06/22 07/13/24 mL) subcutaneous pen (Lantus Solostar U-100 Insulin) metoclopramide HCl 10 mg tablet 10 mg PO TID 09/06/22 07/13/24 budesonide-formoterol HFA 80 2 puff inhalation BID 02/08/23 07/13/24 mcg-4.5 mcg/actuation aerosol inhaler (Symbicort) albuterol sulfate 90 mcg/actuation 2 inh inhalation Q6H PRN 10/15/23 07/13/24 aerosol inhaler WHEEZING/SOB naloxegol 25 mg tablet (Movantik) 25 mg PO DAILY 07/13/24 07/13/24 Previous Rx's Medication Instructions Recorded aspirin 81 mg tablet,delayed 81 mg PO QAM #30 tabs 09/22/23 release atorvastatin 20 mg tablet 20 mg PO QAM #30 tabs 09/22/23 docusate sodium 100 mg capsule 100 mg PO BID PRN Constipation #60 10/25/23 (Col-Rite) caps polyethylene glycol 3350 17 17 g PO DAILY PRN constipation 10/26/23 gram/dose oral powder (Miralax) #119 grams losartan 50 mg tablet 50 mg PO BID #60 tabs 07/16/24 metoprolol succinate 100 mg 100 mg PO BID #60 tabs 07/16/24 tablet,extended release 24 hr (Toprol XL) spironolactone 25 mg tablet 25 mg PO QAM #30 tabs 07/16/24 terazosin 1 mg capsule 1 mg PO HS #30 caps 07/16/24 torsemide 20 mg tablet 20 mg PO QAM #30 tabs 07/16/24 Results & Data (ED) Vital Signs Vital Signs - 24 hr 07/22/24 15:28 07/22/24 17:06 07/22/24 17:18 Temperature 36.7 C Temperature Source Oral Pulse Rate 98 H 106 H 110 H Pulse Rate from SpO2 Sensor 106 H 110 H Respiratory Rate 22 19 15 Respiratory Effort / Characteristics Non-Labored Spontaneous Respiratory Depth Normal Respiratory Pattern Regular Blood Pressure 185/96 H 194/88 H Blood Pressure Mean 125 123 Blood Pressure Position Sitting Pulse Oximetry 93 93 90 Oxygen Delivery Method Room Air Sepsis Recent Fever Within 48 Hours No Sepsis New/Unexplained Change in Mental Status N/A Sepsis Action Taken by Nursing No Action Required 07/22/24 17:21 07/22/24 17:27 07/22/24 17:42 Temperature Temperature Source Pulse Rate 105 H 105 H 107 H Pulse Rate from SpO2 Sensor 105 H 107 H Respiratory Rate 14 17 Respiratory Effort / Characteristics Respiratory Depth Respiratory Pattern Blood Pressure Blood Pressure Mean Blood Pressure Position Pulse Oximetry 97 97 Oxygen Delivery Method Sepsis Recent Fever Within 48 Hours Sepsis New/Unexplained Change in Mental Status Sepsis Action Taken by Nursing 07/22/24 18:15 07/22/24 18:42 07/22/24 19:00 Temperature Temperature Source Pulse Rate 113 H 109 H Pulse Rate from SpO2 Sensor 113 H 109 H Respiratory Rate 16 18 Respiratory Effort / Characteristics Moaning Respiratory Depth Respiratory Pattern Blood Pressure Blood Pressure Mean Blood Pressure Position Pulse Oximetry 97 97 Oxygen Delivery Method Sepsis Recent Fever Within 48 Hours Sepsis New/Unexplained Change in Mental Status Sepsis Action Taken by Nursing 07/22/24 19:12 07/22/24 19:30 07/22/24 19:39 Temperature Temperature Source Pulse Rate 115 H 111 H Pulse Rate from SpO2 Sensor 116 H 112 H 114 H Respiratory Rate 19 20 Respiratory Effort / Characteristics Respiratory Depth Respiratory Pattern Blood Pressure 200/117 H Blood Pressure Mean 144 Blood Pressure Position Pulse Oximetry 98 96 98 Oxygen Delivery Method Sepsis Recent Fever Within 48 Hours Sepsis New/Unexplained Change in Mental Status Sepsis Action Taken by Nursing 07/22/24 19:51 07/22/24 20:03 Temperature Temperature Source Pulse Rate 112 H 111 H Pulse Rate from SpO2 Sensor 113 H 112 H Respiratory Rate 20 17 Respiratory Effort / Characteristics Respiratory Depth Respiratory Pattern Blood Pressure 186/92 H Blood Pressure Mean 123 Blood Pressure Position Pulse Oximetry 97 98 Oxygen Delivery Method Sepsis Recent Fever Within 48 Hours Sepsis New/Unexplained Change in Mental Status Sepsis Action Taken by Nursing Laboratory Data 07/22/24 16:44 07/22/24 16:44 Lab Results 07/22/24 07/22/24 07/22/24 Range/Units 16:44 18:50 19:19 WBC 9.41 (4.8-10.8) K/ul RBC 4.75 (4.70-6.10) M/uL Hgb 12.5 L (14.0-18.0) g/dl Hct 39.7 L (42.0-52.0) % MCV 83.6 (80.0-100.0) fL MCH 26.3 (25.0-34.0) pg MCHC 31.5 L (32.0-36.0) g/dL RDW Std Deviation 43.3 (36.4-46.3) fL RDW Coeff of Abiodun 14.4 (11.5-14.5) % Plt Count 258 (130-400) K/uL MPV 9.7 (9.4-12.4) fL Immature Gran % (Auto) 2.0 % Neut % (Auto) 67.7 % Lymph % (Auto) 17.1 % [place] % (Auto) 7.8 % Eos % (Auto) 4.4 % Baso % (Auto) 1.0 % Neut # (Auto) 6.38 (1.40-6.50) K/uL Lymph # (Auto) 1.61 (1.20-3.40) K/uL [place] # (Auto) 0.73 H (0.11-0.59) K/uL Eos # (Auto) 0.41 (0.00-0.50) K/uL Baso # (Auto) 0.09 (0.00-0.20) K/uL Immature Gran # (Auto) 0.19 (0.01-0.20) K/uL VBG pH 7.32 L (7.36-7.41) VBG pCO2 51 H (38-50) mmHg VBG pO2 59 mmHg VBG HCO3 26 mmol/L VBG O2 Saturation 89.0 % VBG Base Excess -0.5 mEq/L Sodium 133 L (136-145) mmol/L Potassium 4.9 (3.5-5.1) mmol/L Chloride 97 L (98-107) mmol/L Carbon Dioxide 26 (21-32) mmol/L Anion Gap 10 (3-11) BUN 37 H (6-23) mg/dl Creatinine 1.51 H (0.6-1.4) mg/dl Est Cr Clr Drug Dosing Not Reportable eGFR 55.92 BUN/Creatinine Ratio 24.5 H (10-20) Glucose 276 H (70-99(Fasting)) mg/dl Lactate 3.2 H* 2.2 H* (0.4-2.0) mmol/L Calcium 9.3 (8.6-10.3) mg/dl Magnesium 1.4 L (1.7-2.4) mg/dl Total Bilirubin 0.4 (0.2-1.0) mg/dl AST 22 (13-39) U/L ALT 24 (7-52) U/L Alkaline Phosphatase 80 (34-104) U/L Troponin I High Sens 9.7 (0-20) pg/ml Total Protein 7.6 (6.0-8.3) gm/dl Albumin 4.2 (3.4-5.0) gm/dl Globulin 3.4 (2.5-4.0) gm/dl Albumin/Globulin Ratio 1.2 (0.9-2) Lipase 26 (11-82) U/L Urine Color Yellow Urine Appearance Clear (Clear) Urine pH 6.0 (4.5-7.5) Ur Specific [place] 1.026 (1.000-1.030) Urine Protein 2+ H (Negative) Urine Glucose (UA) 3+ H (Negative) Urine Ketones Negative (Negative) Urine Blood Trace H (Negative) Urine Nitrite Negative (Negative) Urine Bilirubin Negative (Negative) Urine Urobilinogen Negative (Negative) Ur Leukocyte Esterase Negative (Negative) Urine WBC (Auto) 0-5 (0-5) /hpf Urine RBC (Auto) 0-2 (0-2) /hpf U Hyaline Cast (Auto) 0-2 (0-2) /lpf U Epithel Cells (Auto) 0-2 (0-2) /hpf Urine Bacteria (Auto) None Seen (None Seen) Administered Medications Discontinued Medications Fentanyl Citrate (Fentanyl Citrate Pf 100 Mcg/2 Ml Vial) 50 mcg IV NOW STA Stop: 07/22/24 16:29 Last Admin: 07/22/24 17:20 Dose: 50 mcg Documented By: MARCIA Fentanyl Citrate (Fentanyl Citrate Pf 100 Mcg/2 Ml Vial) 75 mcg IV NOW STA Stop: 07/22/24 18:22 Last Admin: 07/22/24 18:30 Dose: 75 mcg Documented By: MARCIA Hydromorphone HCl (Hydromorphone Inj 1 Mg/Ml Syringe) 1 mg IV NOW STA Stop: 07/22/24 19:22 Last Admin: 07/22/24 19:39 Dose: 1 mg Documented By: MARCIA Sodium Chloride (Nss) 1,000 mls @ 999 mls/hr IV .Q1H1M ONE Stop: 07/22/24 17:28 Last Infusion: 07/22/24 18:59 Dose: Infused Documented By: Admin: 07/22/24 17:21 Dose: 999 mls/hr Documented By: MARCIA Magnesium Sulfate/Dextrose (Magnesium Sulfate / D5w) 1 gm in 100 mls @ 100 mls/hr IV NOW STA Stop: 07/22/24 18:17 Last Admin: 07/22/24 18:26 Dose: 100 mls/hr Documented By: MARCIA Sodium Chloride (Nss) 500 mls @ 999 mls/hr IV .Q31M ONE Stop: 07/22/24 17:48 Last Infusion: 07/22/24 17:54 Dose: Infused Documented By: Admin: 07/22/24 17:21 Dose: 999 mls/hr Documented By: MARCIA Acetaminophen (Ofirmev) 1,000 mg in 100 mls @ 400 mls/hr IV NOW STA Stop: 07/22/24 18:35 Last Infusion: 07/22/24 18:58 Dose: Infused Documented By: Admin: 07/22/24 18:31 Dose: 400 mls/hr Documented By: MARCIA Ioversol (Optiray 320 125ml) 118 ml IV ONCE ONE Stop: 07/22/24 18:03 Last Admin: 07/22/24 18:02 Dose: 118 ml Documented By: SPENCER Ondansetron HCl (Ondansetron Inj 2 Mg/Ml 2 Ml Vial) 4 mg IV NOW STA Stop: 07/22/24 15:32 Last Admin: 07/22/24 15:44 Dose: 4 mg Documented By: ISAAC Ondansetron HCl (Ondansetron Inj 2 Mg/Ml 2 Ml Vial) 4 mg IV NOW STA Stop: 07/22/24 16:29 Last Admin: 07/22/24 17:21 Dose: 4 mg Documented By: MARCIA Imaging Data Radiologist's Impression: Abdomen/Pelvis CT 07/22/24 16:30 CT OF THE ABDOMEN AND PELVIS WITH CONTRAST CLINICAL HISTORY: Abdominal pain and vomiting. COMPARISON STUDY: CT of the abdomen and pelvis July 13, 2024. TECHNIQUE: Following IV administration of 118 mL of Optiray, axial images of the abdomen and pelvis were obtained from the lung bases to the proximal femurs. Images were reviewed in the axial, sagittal, and coronal planes. IV contrast was administered without complication. Automated exposure control was utilized for the study. A dose lowering technique was utilized adhering to the principles of ALARA. CT DOSE: 1676.25 mGy.cm FINDINGS: No pneumatosis, free air or portal venous gas is present. There is hepatic steatosis. No biliary or pancreatic ductal dilatation. There is no peripancreatic or pericholecystic infiltration. The adrenal glands, kidneys and pancreas are normal. There is no hydronephrosis. There are no urinary calculi. The appendix is surgically absent. The caliber and wall thickness of small and large bowel are normal. There is no lymphadenopathy. No fluid collections are present. IMPRESSION: 1. No acute process within the abdomen or pelvis. 2. No bowel obstruction. No bowel wall thickening. Status post appendectomy. 3. Hepatic steatosis. ACT 112: Negative or not required by law. Electronically signed by: Serge Ghotra M.D. 07/22/2024 6:20 PM Discharge Plan Visit Data Chief Complaint: Vomiting Stated Complaint: VOMITING, BACK AND ABD PAIN ED Provider: Ashley Todd Discharge Problem: Abdominal pain, PASHA (acute kidney injury), Elevated lactic acid level, Hypomagnesemia Forms Stand Alone Forms: [facility] Lancope Prescriptions Prescriptions: No Action insulin aspart U-100 [Novolog FlexPen U-100 Insulin] 100 unit/mL (3 mL) insulin pen 18 unit subcut TID Patient Comments: 16 all the time Rx Instructions: w/meals dicyclomine 10 mg capsule 10 mg PO QID PRN (Reason: Diarrhea) famotidine 20 mg tablet 20 mg PO HS pantoprazole 40 mg tablet,delayed release (DR/EC) 40 mg PO BID metformin 500 mg tablet 1,000 mg PO BID atorvastatin 20 mg Tablet 20 mg PO QAM Qty: 30 0RF aspirin 81 mg Tablet,Delayed Release (Dr/Ec) 81 mg PO QAM Qty: 30 0RF polyethylene glycol 3350 [Miralax] 17 gram/dose powder 17 g PO DAILY PRN (Reason: constipation) Qty: 119 0RF cyclobenzaprine 10 mg tablet 10 mg PO HS gabapentin 100 mg capsule See Rx Instructions .ROUTE .COMPLEX Rx Instructions: TAKES 100 MG QAM, THEN 200 MG QHS. metoclopramide HCl 10 mg tablet 10 mg PO TID insulin glargine [Lantus Solostar U-100 Insulin] 100 unit/mL (3 mL) insulin pen 40 unit subcut BID Rx Instructions: TAKES 40 UNITS QAM, THEN 40 UNITS QHS. budesonide-formoterol [Symbicort] 80-4.5 mcg/actuation HFA aerosol inhaler 2 puff INHALATION BID albuterol sulfate 90 mcg/actuation HFA aerosol inhaler 2 inh inhalation Q6H PRN (Reason: WHEEZING/SOB) docusate sodium [Col-Rite] 100 mg capsule 100 mg PO BID PRN (Reason: Constipation) Qty: 60 0RF Movantik 25 mg tablet 25 mg PO DAILY losartan 50 mg Tablet 50 mg PO BID Qty: 60 0RF torsemide 20 mg Tablet 20 mg PO QAM Qty: 30 0RF terazosin 1 mg Capsule 1 mg PO HS Qty: 30 0RF metoprolol succinate [Toprol XL] 100 mg tablet extended release 24 hr 100 mg PO BID Qty: 60 0RF spironolactone 25 mg Tablet 25 mg PO QAM Qty: 30 0RF Referrals Referrals: Velasquez Valencia MD [Primary Care Provider] -
[2024-07-22 17:04] LABS: Basophils # (auto) 0.09 K/uL (0.00-0.20); Eosinophils # (auto) 0.41 K/uL (0.00-0.50); Eosinophils % (auto) 4.4 %; Hematocrit (blood only) 39.7 % (42.0-52.0); Hemoglobin 12.5 g/dl (14.0-18.0); Immature Granulocytes # (auto) 0.19 K/uL (0.01-0.20); Lymphocytes # (auto) 1.61 K/uL (1.20-3.40); Lymphocytes % (auto) 17.1 %; Mean Corpuscular Hemoglobin 26.3 pg (25.0-34.0); Mean Corpuscular Hgb Conc 31.5 g/dL (32.0-36.0); Mean Corpuscular Volume 83.6 fL (80.0-100.0); Mean Platelet Volume 9.7 fL (9.4-12.4); Monocytes # (auto) 0.73 K/uL (0.11-0.59); Monocytes % (auto) 7.8 %; Neutrophils # (auto) 6.38 K/uL (1.40-6.50); Neutrophils % (auto) 67.7 %; Platelet Count 258 K/uL (130-400); RDW Coefficient of Variation 14.4 % (11.5-14.5); RDW Standard Deviation 43.3 fL (36.4-46.3); Red Blood Count 4.75 M/uL (4.70-6.10); White Blood Count 9.41 K/ul (4.8-10.8)
[2024-07-22 17:17] LABS: Alanine Aminotransferase 24 U/L (7-52); Albumin Globulin Ratio 1.2 (0.9-2); Albumin Level 4.2 gm/dl (3.4-5.0); Alkaline Phosphatase 80 U/L (34-104); Anion Gap 10 (3-11); Aspartate Aminotransferase 22 U/L (13-39); BUN Creatinine Ratio 24.5 (10-20); Bilirubin,Total 0.4 mg/dl (0.2-1.0); Blood Urea Nitrogen 37 mg/dl (6-23); Calcium 9.3 mg/dl (8.6-10.3); Carbon Dioxide 26 mmol/L (21-32); Chloride 97 mmol/L (98-107); Globulin 3.4 gm/dl (2.5-4.0); Glucose 276 mg/dl (70-99(Fasting)); Lipase 26 U/L (11-82); Magnesium 1.4 mg/dl (1.7-2.4); Potassium 4.9 mmol/L (3.5-5.1); Sodium 133 mmol/L (136-145); Total Protein 7.6 gm/dl (6.0-8.3)
[2024-07-22] MEDS: fentaNYL citrate PF 100 MCG/2 ML VIAL IV STA ×2 (17:20→18:30)
[2024-07-22] MEDS: SODIUM CHLORIDE 0.9% 1,000 ML IV ONE (17:21)
[2024-07-22] MEDS: SODIUM CHLORIDE 0.9% 500 ML IV ONE (17:21)
[2024-07-22 17:23] LABS: Troponin I High Sensitivity 9.7 pg/ml (0-20)
[2024-07-22] MEDS: OPTIRAY 320 125ml IV ONE (18:02)
--- NOTE | 2024-07-22 18:23 | CT Scan Report ---
CT OF THE ABDOMEN AND PELVIS WITH CONTRAST CLINICAL HISTORY: Abdominal pain and vomiting. COMPARISON STUDY: CT of the abdomen and pelvis July 13, 2024. TECHNIQUE: Following IV administration of 118 mL of Optiray, axial images of the abdomen and pelvis w ere obtained from the lung bases to the proximal femurs. Images were reviewed in the axial, sagittal, and coronal planes. IV contrast was administered without complication. Automated exposure control w as utilized for the study. A dose lowering technique was utilized adhering to the principles of JONATHAN Uman[place]. CT DOSE: 1676.25 mGy.cm FINDINGS: No pneumatosis, free air or portal venous gas is present. There is hepatic steatosis. No bi liary or pancreatic ductal dilatation. There is no peripancreatic or pericholecystic infiltration. Th e adrenal glands, kidneys and pancreas are normal. There is no hydronephrosis. There are no urinary c alculi. The appendix is surgically absent. The caliber and wall thickness of small and large bowel ar e normal. There is no lymphadenopathy. No fluid collections are present. IMPRESSION: 1. No acute process within the abdomen or pelvis. 2. No bowel obstruction. No bowel wall thickening. Status post appendectomy. 3. Hepatic steatosis. ACT 112: Negative or not required by law. Electronically signed by: Serge Ghotra M.D. 07/22/2024 6:20 PM
[2024-07-22] MEDS: MAGNESIUM SULFATE / D5W 1 GM/100 ML BAG IV STA (18:26)
[2024-07-22] MEDS: ACETAMINOPHEN 1,000 MG/100 ML VIAL IV STA (18:31)
[2024-07-22 19:19] LABS: Appearance Urine Clear (Clear); Bacteria Urine Automated None Seen (None Seen); Bilirubin Urine Negative (Negative); Blood Urine Trace (Negative); Cast Urine Automated 0-2 /lpf (0-2); Color Urine Yellow; Epithelial Cell Urine Auto 0-2 /hpf (0-2); Glucose Urine UA 3+ (Negative); Ketones Urine Negative (Negative); Leukocyte Esterase Urine Negative (Negative); Nitrite Urine Negative (Negative); Protein Urine 2+ (Negative); RBC Urine Automated 0-2 /hpf (0-2); Specific Gravity Urine 1.026 (1.000-1.030); Urobilinogen Urine Negative (Negative); WBC Urine Automated 0-5 /hpf (0-5)
[2024-07-22 19:27] LABS: Base Excess VBG -0.5 mEq/L; HCO3 VBG 26 mmol/L; PCO2 VBG 51 mmHg (38-50); PO2 VBG 59 mmHg; pH VBG 7.32 (7.36-7.41)
[2024-07-22] MEDS: HYDROmorphone INJ 1 MG/ML SYRINGE IV STA (19:39)
--- NOTE | 2024-07-22 20:38 | Surgery Consultation ---
Date of Consultation July 22, 2024 Assessment & Plan (1) Abdominal pain: Patient presented to the ED with abdominal pain x1 day with associated nausea and vomiting. Patient was worked up and found to have an elevated lactic acid level along with an PASHA. He was given fluids and pain medication upon arrival to the ED and underwent CT imaging of his abdomen/pelvis which did not reveal any free air, pneumatosis, or obstruction. Given his continued abdominal pain surgical service was consulted for evaluation. On exam this evening he does have tenderness mostly in the mid-abdominal region however there are no signs of peritonitis that would warrant emergent surgical intervention at this time. Patient's repeat lactic acid level also starting to downtrend from 3.2 to 2.2. He also has an PASHA with Cr of 1.5. His WBC and H&H are both wnl. Patient was also tachycardic in the 110s and hypertensive with SBP ranging between 180-200s. Recommend medical admission at this time for ongoing medical management and surgical service will continue to perform serial abdominal exams and trend lactic acid levels. Supervising Physician Co-Signing Physician Notes As per physician accounts payable assistant Nonspecific abdominal pain not localized without any changes in bowel habits Past history laparoscopic appendectomy approximately a year ago The abdomen no localized tenderness some guarding around the periumbilical area and both lower quadrants no palpable hernia or defects at the umbilical trocar site over the patient has moderate abdominal wall tissue and 5 mm trocar was used at the site CAT scan does not show any hernia At this point parameters are improving no acute surgical problem will follow History of Present Illness Reason for Consultation: Abdominal pain Requesting Physician: Ashley Todd Attending Physician: Dr. Cobos History of Present Illness Patient is a 48-year-old male who a PMH significant for HTTN, COPD, CHF on diuretics, DAMION (noncompliant with CPAP), PE/DVT, DM2 on insulin, NAFLD, GERD, hx pancreatitis, and intellectually disability per chart records. Patient presented to the ED with complaints of abdominal pain for 1 day. Patient states his pain started yesterday evening and has been persistent since. He also has had associated nausea and episodes of vomiting. Patient states his pain is diffuse in nature, however mostly in his mid-abdominal region. He states the pain does radiate into his back at times. His last BM was a few days ago and denies any diarrhea or constipation. He denies any changes in urinary habits since the onset of his symptoms. He does have a past surgical history of an appendectomy done in 2022. Patient recently was admitted to the hospital due to acute on chronic respiratory failure and chronic diastolic heart failure and was just discharged a few days ago. The patient underwent workup in the ED this evening. CT A/P with no acute or concerning findings. However, patient did have an elevated lactic acid and evidence of an PASHA. Due to his abdominal pain and elevated lactic acid levels the surgical service was consulted for further evaluation. During my time of exam, the patient continues to have abdominal pain that's mostly to his mid-ab domen region however is not peritoneal. He states he was nauseous however this has improved after receiving mediation. Patient also noted to be hypertensive with SBP in the 180s-200s and is slightly tachycardic in the 110s. Patient is afebrile and WBC and H&H are wnl. Allergies Allergy/AdvReac Type Severity Reaction Status Date / Time cefaclor [From Ceclor] Allergy Unknown childhood Verified 07/22/24 20:53 allergy ? Cephalosporins Allergy Unknown Unknown Verified 07/22/24 20:53 empagliflozin AdvReac Unknown put me Verified 07/22/24 20:53 [From Jardiance] into ketoacidosis? NSAIDS (Non-Steroidal AdvReac Unknown use with Verified 07/22/24 20:53 Anti-Inflamma caution : hx esophagus damage Home Medications Medication Instructions Recorded Confirmed Type insulin aspart U-100 100 unit/mL 18 unit subcut TID 06/09/19 07/22/24 History (3 mL) subcutaneous pen (Novolog FlexPen U-100 Insulin aspart) dicyclomine 10 mg capsule 10 mg PO QID PRN Diarrhea 05/01/20 07/22/24 History famotidine 20 mg tablet 20 mg PO HS 07/13/20 07/22/24 History pantoprazole 40 mg tablet,delayed 40 mg PO BID 02/25/21 07/22/24 History release metformin 500 mg tablet 1,000 mg PO BID 08/26/21 07/22/24 History cyclobenzaprine 10 mg tablet 10 mg PO HS muscle spasms 09/06/22 07/22/24 History gabapentin 100 mg capsule See Rx Instructions .Route .COMPLEX 09/06/22 07/22/24 History insulin glargine 100 unit/mL (3 40 unit subcut BID 09/06/22 07/22/24 History mL) subcutaneous pen (Lantus Solostar U-100 Insulin) metoclopramide HCl 10 mg tablet 10 mg PO TID 09/06/22 07/22/24 History budesonide-formoterol HFA 80 2 puff inhalation BID 02/08/23 07/22/24 History mcg-4.5 mcg/actuation aerosol inhaler (Symbicort) aspirin 81 mg tablet,delayed 81 mg PO QAM #30 tabs 09/22/23 07/22/24 Rx release atorvastatin 20 mg tablet 20 mg PO QAM #30 tabs 09/22/23 07/22/24 Rx albuterol sulfate 90 mcg/actuation 2 inh inhalation Q6H PRN 10/15/23 07/22/24 History aerosol inhaler WHEEZING/SOB docusate sodium 100 mg capsule 100 mg PO BID PRN Constipation #60 10/25/23 07/22/24 Rx (Col-Rite) caps polyethylene glycol 3350 17 17 g PO DAILY PRN constipation 10/26/23 07/22/24 Rx gram/dose oral powder (Miralax) #119 grams naloxegol 25 mg tablet (Movantik) 25 mg PO DAILY 07/13/24 07/22/24 History losartan 50 mg tablet 50 mg PO BID #60 tabs 07/16/24 07/22/24 Rx metoprolol succinate 100 mg 100 mg PO BID #60 tabs 07/16/24 07/22/24 Rx tablet,extended release 24 hr (Toprol XL) spironolactone 25 mg tablet 25 mg PO QAM #30 tabs 07/16/24 07/22/24 Rx terazosin 1 mg capsule 1 mg PO HS #30 caps 07/16/24 07/22/24 Rx torsemide 20 mg tablet 20 mg PO QAM #30 tabs 07/16/24 07/22/24 Rx Patient History Medical History Arthritis Low magnesium level History of RSV infection & flu a few months ago. Tachycardia chronic high heart rate - unknown etiology - a few months ago increased dose of metoprolol. Rhinovirus dx May 23 [facility] & another illness dx - ? name of /antibiotic and inhalers for. feeling better: only symptom : sore throat. COPD (chronic obstructive pulmonary disease) ? dx of Peripheral neuropathy Diabetes mellitus, type 2 Hypertension Tobacco use Restrictive lung disease Elevated liver function tests History of DVT (deep vein thrombosis) "years ago">no known cause Tussive syncope "occurred only one time, no recent issues" Esophagitis Osteoarthritis Hx of pancreatitis resolved GERD (gastroesophageal reflux disease) Cardiac murmur A CHILD Erectile dysfunction MRSA (methicillin resistant Staphylococcus aureus) carrier over 2 yrs ago>"not sure where it was" Intellectual disability Obstructive sleep apnea cpap Obesity IBS (irritable bowel syndrome) History of ventricular tachycardia "nonsustained" Surgical History History of appendectomy 02/10/2023 History of reduction of nasal fracture 09/25/21-Dr. Garcia Status post incision and drainage LLE History of shoulder surgery right-2019 H/O foot surgery LEFT-2018 History of arthroscopy LEFT [id number] History of esophagogastroduodenoscopy (EGD) History of colonoscopy with most recent attempt: failed prep. Told would need a 2 day prep prior to colonoscopy in Sep 2023. History of tooth extraction History of tonsillectomy and adenoidectomy 1979 Family History Brother Family history of diabetes mellitus Environmental allergies Asthma Mother Family history of diabetes mellitus Hypertension Environmental allergies Father Family history of diabetes mellitus Hypertension Heart disease Grandfather (Paternal) Lung cancer smoker Aunt Bleeding disorder Other No family history of adverse response to anesthesia Social History Smoking Status: Current every day smoker Tobacco Type: Cigarettes Age Started Using Tobacco: 14; Cigarettes Per Day: 1 pack; Second Hand Exposure: No; Do You Dip or Chew Tobacco: No; Hx Alcohol Use: Yes Alcohol type: beer Alcohol Intake Frequency: Monthly or Less Alcohol Intake Frequency Comment: seldom, a couple times per year if that per pt Hx Substance Use: No Preferred Language: Bhutanese Communication Ability: Effective Paint Tester Required: No Beliefs That Will Affect Care: None marital status: / marital status details: single at this time Current Living Situation: Significant Other Current Living Situation Comment: with Ni and dog, in home, 1 JING current occupational status: employed 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 Respiratory: normal respiratory effort, lungs clear to auscultation no respiratory distress Cardiovascular: RRR, no murmur, no edema Tachycardic with HR 110s Gastrointestinal (Abdomen): Abdomen is obese, soft, +TTP in the mid-abdominal region however no rebound, guarding, hernias, or signs of peritonitis. Musculoskeletal: Left BKA Skin: no rashes, warm and dry Results & Data Vital Signs (Past 12 Hours) Vital Signs Temp Pulse Resp BP Pulse Ox O2 Del Method 07/22/24 20:03 111 H 17 186/92 H 98 07/22/24 19:51 112 H 20 97 07/22/24 19:39 98 07/22/24 19:30 111 H 20 96 07/22/24 19:12 115 H 19 200/117 H 98 07/22/24 18:42 109 H 18 97 07/22/24 18:15 113 H 16 97 07/22/24 17:42 107 H 17 97 07/22/24 17:27 105 H 14 97 07/22/24 17:21 105 H 07/22/24 17:18 110 H 15 194/88 H 90 07/22/24 17:06 106 H 19 93 07/22/24 15:28 36.7 C 98 H 22 185/96 H 93 [address] Air Diagnostic Findings CT OF THE ABDOMEN AND PELVIS WITH CONTRAST CLINICAL HISTORY: Abdominal pain and vomiting. COMPARISON STUDY: CT of the abdomen and pelvis July 13, 2024. TECHNIQUE: Following IV administration of 118 mL of Optiray, axial images of the abdomen and pelvis were obtained from the lung bases to the proximal femurs. Images were reviewed in the axial, sagittal, and coronal planes. IV contrast was administered without complication. Automated exposure control was utilized for the study. A dose lowering technique was utilized adhering to the principles of ALARA. CT DOSE: 1676.25 mGy.cm FINDINGS: No pneumatosis, free air or portal venous gas is present. There is hepatic steatosis. No biliary or pancreatic ductal dilatation. There is no peripancreatic or pericholecystic infiltration. The adrenal glands, kidneys and pancreas are normal. There is no hydronephrosis. There are no urinary calculi. The appendix is surgically absent. The caliber and wall thickness of small and large bowel are normal. There is no lymphadenopathy. No fluid collections are present. IMPRESSION: 1. No acute process within the abdomen or pelvis. 2. No bowel obstruction. No bowel wall thickening. Status post appendectomy. 3. Hepatic steatosis. PG Care Time/CCT Total # of Minutes Spent Total Time Spent with Patient: Total time spent is greater than 50% in coordination of care (as documented) at patient's floor/unit and/or counseling patient: Coding Level of Care Code 70655 INT INP/OBS CARE 1/40MIN Diagnoses Generalized abdominal pain R10.84 Abdominal location: generalized (1) Abdominal pain Abdominal location: generalized Qualified Code(s): R10.84 - Generalized abdominal pain
[2024-07-22] MEDS: MAGNESIUM SULFATE / D5W 1 GM/100 ML BAG IV ONE (20:53)
[2024-07-22] MEDS: LABETALOL HCL IV 5 MG/ML 20ML IV STA ×2 (20:58→21:41)
[2024-07-22] MEDS: METOPROLOL TARTRATE 1 MG/ML VIAL IV STA (21:35)
[2024-07-22] MEDS: LACTATED RINGER'S 1,000 ML IV ONE (21:35)
--- NOTE | 2024-07-22 21:42 | History & Physical Report ---
Date of Service July 22, 2024 Assessment & Plan (1) Hypertensive crisis: Plan: Secondary to GI upset/possible viral illness History of gastroparesis ARF secondary to illness chronic diastolic heart failure (EF 55 to 60%, TTE 2023), patient has dry side hyperlipidemia, on statin Rx chronic hypercapnic respiratory failure, hx COPD/RLD, DAMION (current CPAP noncompliance) PE/DVT status post anticoagulation DM2 insulin requiring, suboptimal control as of recent hemoglobin A1c of 8.6/April 2024 hx NAFLD hx pancreatitis chronic anemia, hemoglobin at baseline intellectual disability as per records ongoing tobacco abuse Admit to medical telemetry Labetalol 1 dose now Analgesia, antiemetic Rx Clear liquid diet Monitor creatinine response to IVF Hold losartan and diuretic Rx until creatinine back to baseline Basal bolus insulin adjusted for clear liquid diet, ISS BG goal 1 10-1 40, carb count coverage Nicotine patch as needed DVT prophylaxis. Heparin subcu Full code Text document was generated using FanLib voice recognition software. It may contain grammatical or spelling errors. Kindly contact undersigned for clarification of any documentation item in question. History of Present Illness Chief Complaint: Abdominal pain Primary Care Provider: Velasquez Valencia MD History obtained from patient and records. Medical history significant for chronic diastolic heart failure (EF 55 to 60%, TTE 2023), hypertension, hyperlipidemia, COPD/RLD, DAMION (current CPAP noncompliance), PE/DVT status post anticoagulation, DM2 insulin requiring, NAFLD, GERD, gastroparesis, history of pancreatitis, chronic anemia (baseline hemoglobin 11-12), morbid obesity, intellectual disability as per records, ongoing tobacco abuse. Recent confinement July 13 to 2023 for decompensated heart failure. Patient discharged on higher metoprolol and torsemide home doses. Spironolactone added to patient's regimen. Last night, patient noted diffuse abdominal pain associated with nausea and emesis. No change in bowel habits. Not sure about sick contacts. Denies headache, chest pain, cough, SOB. Highest SBP of 200s documented at the ER. 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 Allergy Unknown childhood Verified 07/22/24 20:53 allergy ? Cephalosporins Allergy Unknown Unknown Verified 07/22/24 20:53 empagliflozin AdvReac Unknown put me Verified 07/22/24 20:53 [From [facility]] into ketoacidosis? NSAIDS (Non-Steroidal AdvReac Unknown use with Verified 07/22/24 20:53 Anti-Inflamma caution : hx esophagus damage Home Medications Medication Instructions Recorded Confirmed Type insulin aspart U-100 100 unit/mL 18 unit subcut TID 06/09/19 07/22/24 History (3 mL) subcutaneous pen (Novolog FlexPen U-100 Insulin aspart) dicyclomine 10 mg capsule 10 mg PO QID PRN Diarrhea 05/01/20 07/22/24 History famotidine 20 mg tablet 20 mg PO HS 07/13/20 07/22/24 History pantoprazole 40 mg tablet,delayed 40 mg PO BID 02/25/21 07/22/24 History release metformin 500 mg tablet 1,000 mg PO BID 08/26/21 07/22/24 History cyclobenzaprine 10 mg tablet 10 mg PO HS muscle spasms 09/06/22 07/22/24 History gabapentin 100 mg capsule See Rx Instructions .Route .COMPLEX 09/06/22 07/22/24 History insulin glargine 100 unit/mL (3 40 unit subcut BID 09/06/22 07/22/24 History mL) subcutaneous pen (Lantus Solostar U-100 Insulin) metoclopramide HCl 10 mg tablet 10 mg PO TID 09/06/22 07/22/24 History budesonide-formoterol HFA 80 2 puff inhalation BID 02/08/23 07/22/24 History mcg-4.5 mcg/actuation aerosol inhaler (Symbicort) aspirin 81 mg tablet,delayed 81 mg PO QAM #30 tabs 09/22/23 07/22/24 Rx release atorvastatin 20 mg tablet 20 mg PO QAM #30 tabs 09/22/23 07/22/24 Rx albuterol sulfate 90 mcg/actuation 2 inh inhalation Q6H PRN 10/15/23 07/22/24 History aerosol inhaler WHEEZING/SOB docusate sodium 100 mg capsule 100 mg PO BID PRN Constipation #60 10/25/23 07/22/24 Rx (Col-Rite) caps polyethylene glycol 3350 17 17 g PO DAILY PRN constipation 10/26/23 07/22/24 Rx gram/dose oral powder (Miralax) #119 grams naloxegol 25 mg tablet (Movantik) 25 mg PO DAILY 07/13/24 07/22/24 History losartan 50 mg tablet 50 mg PO BID #60 tabs 07/16/24 07/22/24 Rx metoprolol succinate 100 mg 100 mg PO BID #60 tabs 07/16/24 07/22/24 Rx tablet,extended release 24 hr (Toprol XL) spironolactone 25 mg tablet 25 mg PO QAM #30 tabs 07/16/24 07/22/24 Rx terazosin 1 mg capsule 1 mg PO HS #30 caps 07/16/24 07/22/24 Rx torsemide 20 mg tablet 20 mg PO QAM #30 tabs 07/16/24 07/22/24 Rx Past Med/Surg History Problem List Hypertensive crisis Hypomagnesemia (Acute) Elevated lactic acid level (Acute) PASHA (acute kidney injury) (Acute) Abdominal pain (Acute) Volume overload Acute and chronic respiratory failure with hypercapnia Shortness of breath (Acute) 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 Garcia Morbid obesity Chronic respiratory failure with hypercapnia Diabetic peripheral neuropathy associated with type 2 diabetes mellitus Loss of protective sensation of skin of foot Epigastric abdominal pain Encounter for pre-operative examination Colon polyp Medical History Arthritis Low magnesium level History of RSV infection & flu a few months ago. Tachycardia chronic high heart rate - unknown etiology - a few months ago increased dose of metoprolol. Rhinovirus dx May 23 [facility] & another illness dx - ? name of /antibiotic and inhalers for. feeling better: only symptom : sore throat. COPD (chronic obstructive pulmonary disease) ? dx of Peripheral neuropathy Diabetes mellitus, type 2 Hypertension Tobacco use Restrictive lung disease Elevated liver function tests History of DVT (deep vein thrombosis) "years ago">no known cause Tussive syncope "occurred only one time, no recent issues" Esophagitis Osteoarthritis Hx of pancreatitis resolved GERD (gastroesophageal reflux disease) Cardiac murmur A CHILD Erectile dysfunction MRSA (methicillin resistant Staphylococcus aureus) carrier over 2 yrs ago>"not sure where it was" Intellectual disability Obstructive sleep apnea cpap Obesity IBS (irritable bowel syndrome) History of ventricular tachycardia "nonsustained" Surgical History History of appendectomy 02/10/2023 History of reduction of nasal fracture 09/25/21-Dr. Garcia Status post incision and drainage LLE History of shoulder surgery right-2019 H/O foot surgery LEFT-2018 History of arthroscopy LEFT KNEE-1987 History of esophagogastroduodenoscopy (EGD) History of colonoscopy with most recent attempt: failed prep. Told would need a 2 day prep prior to colonoscopy in Sep 2023. History of tooth extraction History of tonsillectomy and adenoidectomy 1979 Family History Brother Family history of diabetes mellitus Environmental allergies Asthma Mother Family history of diabetes mellitus Hypertension Environmental allergies Father Family history of diabetes mellitus Hypertension Heart disease Grandfather (Paternal) Lung cancer smoker Aunt Bleeding disorder Other No family history of adverse response to anesthesia Social History Smoking Status: Current every day smoker Tobacco Type: Cigarettes Age Started Using Tobacco: 14; Cigarettes Per Day: 1 pack; Second Hand Exposure: No; Do You Dip or Chew Tobacco: No; Hx Alcohol Use: Yes Alcohol type: beer Alcohol Intake Frequency: Monthly or Less Alcohol Intake Frequency Comment: seldom, a couple times per year if that per pt Hx Substance Use: No Preferred Language: Estonian Communication Ability: Effective 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 Required: No Beliefs That Will Affect Care: None marital status: / marital status details: single at this time Current Living Situation: Significant Other Current Living Situation Comment: with Ni and dog, in home, 1 JING current occupational status: employed 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 Other Information That Helps Us Care for You: No other: girlfriend able to assist with dressing changes and care as needed Feels Safe at Home: Yes Safety Concerns: Feels Safe At This Time Diet: diabetic during the past year weight has: remained stable Assistive Devices: CPAP and Wheelchair Assistive Devices Comment: shower chair Review of Systems Review of Systems: As per HPI, all other systems reviewed and negative Physical Exam Physical Exam: GENERAL: Comfortable, pleasant, morbidly obese, no respiratory distress SKIN: Pallor, warm HEENT: Alopecia, pale palpebral conjunctivae, no ptosis, dry buccal mucosa, nasal cannula in place NECK : Supple, short neck, no tenderness CHEST : Decreased breath sounds, no tenderness HEART : Tachycardic, no obvious murmurs ABDOMEN: Some distention, central abdominal tenderness EXTREMITIES : Minimal swelling without tenderness, left BKA stump NEUROLOGIC : Coherent, no facial asymmetry, no other gross focality Results & Data Results & Data Vital Signs (Past 12 Hours) Vital Signs Temp Pulse Pulse Resp BP BP Pulse Ox 07/22/24 21:05 117 H 07/22/24 20:56 115 H 20 158/99 H 98 07/22/24 20:36 113 H 16 158/99 H 97 07/22/24 20:03 111 H 17 186/92 H 98 07/22/24 19:51 112 H 20 97 07/22/24 19:39 98 07/22/24 19:30 111 H 20 96 07/22/24 19:12 115 H 19 200/117 H 98 07/22/24 18:42 109 H 18 97 07/22/24 18:15 113 H 16 97 07/22/24 17:42 107 H 17 97 07/22/24 17:27 105 H 14 97 07/22/24 17:21 105 H 07/22/24 17:18 110 H 15 194/88 H 90 07/22/24 17:06 106 H 19 93 07/22/24 15:28 36.7 C 98 H 22 185/96 H 93 O2 Del Method 07/22/24 21:05 07/22/24 20:56 Room Air 07/22/24 20:36 07/22/24 20:03 07/22/24 19:51 07/22/24 19:39 07/22/24 19:30 07/22/24 19:12 07/22/24 18:42 07/22/24 18:15 07/22/24 17:42 07/22/24 17:27 07/22/24 17:21 07/22/24 17:18 07/22/24 17:06 07/22/24 15:28 Room Air Laboratory Results Laboratory Results WBC 9.41 K/ul (4.8-10.8) 07/22/24 16:44 RBC 4.75 M/uL (4.70-6.10) 07/22/24 16:44 Hgb 12.5 g/dl (14.0-18.0) L 07/22/24 16:44 Hct 39.7 % (42.0-52.0) L 07/22/24 16:44 MCV 83.6 fL (80.0-100.0) 07/22/24 16:44 MCH 26.3 pg (25.0-34.0) 07/22/24 16:44 MCHC 31.5 g/dL (32.0-36.0) L 07/22/24 16:44 RDW Std Deviation 43.3 fL (36.4-46.3) 07/22/24 16:44 RDW Coeff of Abiodun 14.4 % (11.5-14.5) 07/22/24 16:44 Plt Count 258 K/uL (130-400) 07/22/24 16:44 MPV 9.7 fL (9.4-12.4) 07/22/24 16:44 Immature Gran % (Auto) 2.0 % 07/22/24 16:44 Neut % (Auto) 67.7 % 07/22/24 16:44 Lymph % (Auto) 17.1 % 07/22/24 16:44 [place] % (Auto) 7.8 % 07/22/24 16:44 Eos % (Auto) 4.4 % 07/22/24 16:44 Baso % (Auto) 1.0 % 07/22/24 16:44 Neut # (Auto) 6.38 K/uL (1.40-6.50) 07/22/24 16:44 Lymph # (Auto) 1.61 K/uL (1.20-3.40) 07/22/24 16:44 [place] # (Auto) 0.73 K/uL (0.11-0.59) H 07/22/24 16:44 Eos # (Auto) 0.41 K/uL (0.00-0.50) 07/22/24 16:44 Baso # (Auto) 0.09 K/uL (0.00-0.20) 07/22/24 16:44 Immature Gran # (Auto) 0.19 K/uL (0.01-0.20) 07/22/24 16:44 VBG pH 7.32 (7.36-7.41) L 07/22/24 19:19 VBG pCO2 51 mmHg (38-50) H 07/22/24 19:19 VBG pO2 59 mmHg 07/22/24 19:19 VBG HCO3 26 mmol/L 07/22/24 19:19 VBG O2 Saturation 89.0 % 07/22/24 19:19 VBG Base Excess -0.5 mEq/L 07/22/24 19:19 Sodium 133 mmol/L (136-145) L 07/22/24 16:44 Potassium 4.9 mmol/L (3.5-5.1) 07/22/24 16:44 Chloride 97 mmol/L (98-107) L 07/22/24 16:44 Carbon Dioxide 26 mmol/L (21-32) 07/22/24 16:44 Anion Gap 10 (3-11) 07/22/24 16:44 BUN 37 mg/dl (6-23) H 07/22/24 16:44 Creatinine 1.51 mg/dl (0.6-1.4) H 07/22/24 16:44 Est Cr Clr Drug Dosing Not Reportable 07/22/24 16:44 eGFR 55.92 07/22/24 16:44 BUN/Creatinine Ratio 24.5 (10-20) H 07/22/24 16:44 Glucose 276 mg/dl (70-99(Fasting)) H 07/22/24 16:44 Lactate 2.2 mmol/L (0.4-2.0) H* 07/22/24 19:19 Calcium 9.3 mg/dl (8.6-10.3) 07/22/24 16:44 Magnesium 1.4 mg/dl (1.7-2.4) L 07/22/24 16:44 Total Bilirubin 0.4 mg/dl (0.2-1.0) 07/22/24 16:44 AST 22 U/L (13-39) 07/22/24 16:44 ALT 24 U/L (7-52) 07/22/24 16:44 Alkaline Phosphatase 80 U/L (34-104) 07/22/24 16:44 Troponin I High Sens 9.7 pg/ml (0-20) 07/22/24 16:44 Total Protein 7.6 gm/dl (6.0-8.3) 07/22/24 16:44 Albumin 4.2 gm/dl (3.4-5.0) 07/22/24 16:44 Globulin 3.4 gm/dl (2.5-4.0) 07/22/24 16:44 Albumin/Globulin Ratio 1.2 (0.9-2) 07/22/24 16:44 Lipase 26 U/L (11-82) 07/22/24 16:44 Urine Color Yellow 07/22/24 18:50 Urine Appearance Clear (Clear) 07/22/24 18:50 Urine pH 6.0 (4.5-7.5) 07/22/24 18:50 Ur Specific [place] 1.026 (1.000-1.030) 07/22/24 18:50 Urine Protein 2+ (Negative) H 07/22/24 18:50 Urine Glucose (UA) 3+ (Negative) H 07/22/24 18:50 Urine Ketones Negative (Negative) 07/22/24 18:50 Urine Blood Trace (Negative) H 07/22/24 18:50 Urine Nitrite Negative (Negative) 07/22/24 18:50 Urine Bilirubin Negative (Negative) 07/22/24 18:50 Urine Urobilinogen Negative (Negative) 07/22/24 18:50 Ur Leukocyte Esterase Negative (Negative) 07/22/24 18:50 Urine WBC (Auto) 0-5 /hpf (0-5) 07/22/24 18:50 Urine RBC (Auto) 0-2 /hpf (0-2) 07/22/24 18:50 U Hyaline Cast (Auto) 0-2 /lpf (0-2) 07/22/24 18:50 U Epithel Cells (Auto) 0-2 /hpf (0-2) 07/22/24 18:50 Urine Bacteria (Auto) None Seen (None Seen) 07/22/24 18:50 Impressions Abdomen/Pelvis CT 07/22/24 16:30 CT OF THE ABDOMEN AND PELVIS WITH CONTRAST CLINICAL HISTORY: Abdominal pain and vomiting. COMPARISON STUDY: CT of the abdomen and pelvis July 13, 2024. TECHNIQUE: Following IV administration of 118 mL of Optiray, axial images of the abdomen and pelvis were obtained from the lung bases to the proximal femurs. Images were reviewed in the axial, sagittal, and coronal planes. IV contrast was administered without complication. Automated exposure control was utilized for the study. A dose lowering technique was utilized adhering to the principles of ALARA. CT DOSE: 1676.25 mGy.cm FINDINGS: No pneumatosis, free air or portal venous gas is present. There is hepatic steatosis. No biliary or pancreatic ductal dilatation. There is no peripancreatic or pericholecystic infiltration. The adrenal glands, kidneys and pancreas are normal. There is no hydronephrosis. There are no urinary calculi. The appendix is surgically absent. The caliber and wall thickness of small and large bowel are normal. There is no lymphadenopathy. No fluid collections are present. IMPRESSION: 1. No acute process within the abdomen or pelvis. 2. No bowel obstruction. No bowel wall thickening. Status post appendectomy. 3. Hepatic steatosis. ACT 112: Negative or not required by law. Electronically signed by: Serge Ghotra M.D. 07/22/2024 6:20 PM Diagnostic Findings EKG as per my interpretation : Rate 95, NSR, LAD, LAFB, incomplete RBBB no ischemia
[2024-07-22] MEDS ORDERED: DEXTROSE 50% 50 ML SYRINGE IV PRN (21:58)
[2024-07-22] MEDS ORDERED: CARBOHYDRATES FOR HYPOGLYCEMIA PO PRN (21:58)
[2024-07-22] MEDS ORDERED: GLUCOSE 40% GEL 15 GM TUBE PO PRN (21:58)
[2024-07-22] MEDS ORDERED: GLUCAGON FOR INJ 1 MG VIAL SQ PRN (21:58)
[2024-07-22] MEDS ORDERED: GLUCOSE 10 TAB/TUBE PO PRN (21:58)
[2024-07-22] MEDS: HYDROmorphone INJ 0.5 MG/0.5 ML SYR IV STA (22:33)
[2024-07-22] MEDS: INSULIN ASPART PER UNIT CHARGE SC SCH (22:58)
[2024-07-22] MEDS: LANTUS PER UNIT CHARGE SQ SCH (22:58)
[2024-07-22 23:17] LABS: Base Excess VBG 1.2 mEq/L; HCO3 VBG 29 mmol/L; Oxygen Saturation VBG 91.4 %; PCO2 VBG 57 mmHg (38-50); PO2 VBG 65 mmHg; pH VBG 7.31 (7.36-7.41)
[2024-07-23] MEDS: HEPARIN SOD 5,000 UNIT/0.5 ML VIAL SQ SCH (02:07)
[2024-07-23] MEDS: PANTOprazole 40 MG TAB PO SCH (02:08)
[2024-07-23] MEDS: TERAZOSIN HCL 1 MG CAP PO SCH (02:08)
[2024-07-23] MEDS: FAMOTIDINE 20 MG TAB PO SCH (02:11)
[2024-07-23] MEDS: GABAPENTIN 100 MG CAP PO SCH ×2 (02:12→10:32)
[2024-07-23] MEDS: FLUTICASONE/VILANTEROL 100/25MCG 14 PUFFS/INHALER INH SCH (04:30)
[2024-07-23 04:53] LABS: Basophils # (auto) 0.08 K/uL (0.00-0.20); Eosinophils # (auto) 0.17 K/uL (0.00-0.50); Eosinophils % (auto) 2.1 %; Hematocrit (blood only) 34.7 % (42.0-52.0); Hemoglobin 11.3 g/dl (14.0-18.0); Immature Granulocytes # (auto) 0.14 K/uL (0.01-0.20); Immature Granulocytes % (auto) 1.7 %; Lymphocytes # (auto) 1.84 K/uL (1.20-3.40); Lymphocytes % (auto) 22.8 %; Mean Corpuscular Hgb Conc 32.6 g/dL (32.0-36.0); Mean Corpuscular Volume 82.8 fL (80.0-100.0); Mean Platelet Volume 9.6 fL (9.4-12.4); Monocytes # (auto) 0.87 K/uL (0.11-0.59); Monocytes % (auto) 10.8 %; Neutrophils # (auto) 4.98 K/uL (1.40-6.50); Neutrophils % (auto) 61.6 %; Platelet Count 235 K/uL (130-400); RDW Coefficient of Variation 14.4 % (11.5-14.5); RDW Standard Deviation 43.7 fL (36.4-46.3); Red Blood Count 4.19 M/uL (4.70-6.10); White Blood Count 8.08 K/ul (4.8-10.8)
[2024-07-23 04:54] LABS: Base Excess VBG 1.2 mEq/L; HCO3 VBG 29 mmol/L; Oxygen Saturation VBG 91.2 %; PCO2 VBG 59 mmHg (38-50); PO2 VBG 62 mmHg
[2024-07-23 05:09] LABS: BUN Creatinine Ratio 20.7 (10-20); Calcium 8.7 mg/dl (8.6-10.3); Creatinine Clr Calc Pharmacy 88.1 ml/min; Potassium 4.8 mmol/L (3.5-5.1)
[2024-07-23] MEDS: SODIUM CHLORIDE 0.9% 1,000 ML IV ONE (05:42)
[2024-07-23 06:08] LABS: Base Excess VBG 0.8 mEq/L; HCO3 VBG 30 mmol/L; PCO2 VBG 66 mmHg (38-50); PO2 VBG 47 mmHg; pH VBG 7.26 (7.36-7.41)
[2024-07-23 06:12] LABS: Magnesium 1.9 mg/dl (1.7-2.4)
--- NOTE | 2024-07-23 07:50 | XRay Report ---
XR chest 1V portable CLINICAL HISTORY: Renal failure. COMPARISON STUDY: Chest radiograph and chest CT July 13, 2024. FINDINGS: Lung volumes are normal. Lungs are clear. There is no pneumothorax or pleural effusion. Car diomegaly is unchanged. Mediastinal contours are normal. There is no evidence for pulmonary edema. In terstitial prominence is unchanged. IMPRESSION: No acute cardiopulmonary findings. No change in appearance of the chest. ACT 112: Negative or not required by law. Electronically signed by: Serge Ghotra M.D. 07/23/2024 7:49 AM
[2024-07-23 08:13] LABS: HCO3 VBG 30 mmol/L; Oxygen Saturation VBG 82.9 %; PCO2 VBG 63 mmHg (38-50); PO2 VBG 52 mmHg; pH VBG 7.29 (7.36-7.41)
--- NOTE | 2024-07-23 08:59 | Surgery Progress Note ---
Date of Service July 23, 2024 Assessment & Plan (1) Abdominal pain: Plan: 48 yo male with history of gastroparesis and surgical history significant for laparoscopic appendectomy with Dr. Adarsh Winston in 01/2023, admitted due to significantly elevated blood pressure. Has current abdominal pain at umbilical trocar site- no evidence of hernia on exam. He reports that pain is improved this AM. No surgical intervention indicated at this time. Gen Surg will continue to follow peripherally. Patient seen and examined with Dr. Cobos. Admission and Anticipated Discharge Date Admission Date: July 22, 2024 Mateusz Londono is resting in bed in ED with no new concerns overnight. He reports that his abdominal pain is still present, but better than when he first arrived at the ED. He denies any nausea this AM. Physical Exam Constitutional: Awake, alert, answering questions appropriately. Respiratory: normal respiratory effort, lungs clear to auscultation no respiratory distress Cardiovascular: RRR, no murmur, no edema Tachycardic with HR 110s Gastrointestinal (Abdomen): Abdomen is obese, soft, +TTP in the mid-abdominal region (at umbilical trocar site from previous appendectomy) however no rebound, guarding, hernias, or signs of peritonitis. No evidence of hernia on exam. Musculoskeletal: Left BKA Skin: no rashes, warm and dry Results & Data Vital Signs (Past 12 Hours) Vital Signs Pulse Pulse Resp BP BP Pulse Ox O2 Del Method 07/23/24 07:36 102 H 07/23/24 07:15 105 H 18 100 07/23/24 05:50 106 H 14 100 07/23/24 05:17 106 H 15 114/82 91 07/23/24 04:37 102 H 13 106/84 07/23/24 03:41 Nasal Cannula 07/23/24 03:41 102 H 14 111/83 97 Nasal Cannula 07/23/24 02:27 103 H 13 118/50 L 99 Nasal Cannula 07/23/24 02:10 105 H 13 118/50 L 07/23/24 02:02 104 H 14 180/132 H 07/23/24 01:09 102 H 16 98 07/23/24 01:02 103/75 07/23/24 00:51 105 H 16 97 07/23/24 00:34 102 H 12 103/75 98 Nasal Cannula 07/23/24 00:33 106 H 10 L 98 07/23/24 00:04 107 H 12 91/72 L 97 Nasal Cannula 07/23/24 00:03 108 H 12 97 07/23/24 00:00 91/72 L 07/22/24 23:58 154/124 H 07/22/24 23:56 108 H 154/124 H 07/22/24 23:54 109 H 10 L 97 07/22/24 23:33 109 H 22 98 07/22/24 23:00 111 H 13 07/22/24 23:00 138/85 07/22/24 22:39 113 H 13 91 07/22/24 22:21 111 H 15 98 07/22/24 22:06 17 153/78 H 98 07/22/24 21:43 182/101 H 07/22/24 21:43 182/101 H 07/22/24 21:43 182/101 H 07/22/24 21:41 117 H 199/92 H 07/22/24 21:36 117 H 16 199/92 H 99 07/22/24 21:36 199/92 H 07/22/24 21:33 117 H 19 98 07/22/24 21:05 117 H 07/22/24 21:03 116 H 15 186/95 H 98 07/22/24 20:56 115 H 20 158/99 H 98 Room Air O2 Flow Rate FiO2 07/23/24 07:36 07/23/24 07:15 40 07/23/24 05:50 40 07/23/24 05:17 07/23/24 04:37 07/23/24 03:41 4 07/23/24 03:41 4 07/23/24 02:27 4 07/23/24 02:10 07/23/24 02:02 07/23/24 01:09 07/23/24 01:02 07/23/24 00:51 07/23/24 00:34 4 07/23/24 00:33 07/23/24 00:04 4 07/23/24 00:03 07/23/24 00:00 07/22/24 23:58 07/22/24 23:56 07/22/24 23:54 07/22/24 23:33 07/22/24 23:00 07/22/24 23:00 07/22/24 22:39 07/22/24 22:21 07/22/24 22:06 07/22/24 21:43 07/22/24 21:43 07/22/24 21:43 07/22/24 21:41 07/22/24 21:36 07/22/24 21:36 07/22/24 21:33 07/22/24 21:05 07/22/24 21:03 07/22/24 20:56 PG Care Time/CCT Total # of Minutes Spent Total Time Spent with Patient: Total time spent is greater than 50% in coordination of care (as documented) at patient's floor/unit and/or counseling patient: Coding Level of Care Code 08384 SUB INP/OBS CARE 11/11MIN Diagnoses Generalized abdominal pain R10.84 Abdominal location: generalized (1) Abdominal pain Abdominal location: generalized Qualified Code(s): R10.84 - Generalized abdominal pain
[2024-07-23] MEDS: ASPIRIN 81 MG ECTAB PO SCH (09:32)
[2024-07-23] MEDS: ATORVASTATIN 20 MG TAB PO SCH (09:32)
[2024-07-23] MEDS: METOCLOPRAMIDE HCL 10 MG TABLET PO SCH (09:32)
[2024-07-23] MEDS: METOPROLOL SUCC 50MG EXT REL TAB PO SCH (10:31)
[2024-07-23] MEDS ORDERED: LABETALOL HCL IV 5 MG/ML 20ML IV PRN (12:29)
--- NOTE | 2024-07-23 12:29 | Hospitalist Progress Note ---
Date of Service July 23, 2024 Assessment & Plan (1) Hypertensive crisis: Plan: 48-year-old male with PMH of chronic diastolic heart failure [EF 55 to 60%, 2023 TTE], HTN, HLD, COPD/RLD, DAMION [currently CPAP noncompliance], PE/DVT status post anticoagulation, DM 2 insulin requiring, NAFLD, GERD, gastroparesis, pancreatitis, chronic anemia [baseline hemoglobin 11-12], and morbid obesity, intellectual disability, ongoing tobacco abuse who was recently admitted for decompensated heart failure and was discharged on a higher dose of metoprolol and torsemide and added was Aldactone presents this time with diffuse abdominal pain associated with nausea and emesis and was noted to have SBP of 200 at presentation. He is being managed for the following: Hypertensive crisis: Likely secondary to GI upset/possible viral illness SBP elevated into 100 at presentation, currently better controlled Continue home blood pressure medication, losartan, torsemide and Aldactone on hold due to acute kidney injury. As needed blood pressure medications on board, continue telemetry monitoring. Resume other meds as able. GI upset/possible viral illness/Abdominal pain History of gastroparesis Patient presenting with diffuse abdominal pain associated with nausea and emesis. Patient reports improving abdominal pain, denies further nausea and vomiting. Unclear liquid diet, General surgery evaled, appreciate recommendation. C/w analgesis/antiemetic. Advance diet as tolerated. Acute kidney injury: Likely secondary to illness. Baseline creatinine around 1.2, admitting creatinine of 1.51, admitting CTAP reviewed. Creatinine up trended, 1.64 today. Hold losartan, torsemide and Aldactone. Continue with gentle IV fluid, monitor for volume overload, labs in AM. Other chronic medical conditions: Continue with/resume home meds as and when able. chronic diastolic heart failure (EF 55 to 60%, TTE 2023), patient on dry side hyperlipidemia, on statin Rx chronic hypercapnic respiratory failure, hx COPD/RLD, DAMION (current CPAP noncompliance) PE/DVT status post anticoagulation DM2 insulin requiring, suboptimal control as of recent hemoglobin A1c of 8 .6/April 2024 hx NAFLD hx pancreatitis chronic anemia, hemoglobin at baseline intellectual disability as per records ongoing tobacco abuse:Nicotine patch as needed DVT prophylaxis. Heparin subcu Full code Text document was generated using OneTouch voice recognition software. It may contain grammatical or spelling errors. Kindly contact undersigned for clarification of any documentation item in question. Admission and Anticipated Discharge Date Admission Date: July 22, 2024 Subjective Patient was seen and examined at bedside. Patient was lying in bed, on BiPAP, resting comfortably, sleeping. Patient woke up to exam, denies fever/chest pain/cough/shortness of breath. Patient reports abdominal pain getting better but still present somewhat. Physical Exam Physical Exam: GENERAL: Comfortable, pleasant, morbidly obese, no respiratory distress SKIN: Pallor, warm HEENT: Alopecia, pale palpebral conjunctivae, no ptosis, dry buccal mucosa, BPAP in place. NECK : Supple, short neck, no tenderness CHEST : Decreased breath sounds, no tenderness HEART : Tachycardic, no obvious murmurs ABDOMEN: Some distention, central abdominal tenderness - minimal EXTREMITIES : Minimal swelling without tenderness, left BKA stump NEUROLOGIC : Coherent, no facial asymmetry, no other gross focality Results & Data Results & Data Vital Signs (Past 12 Hours) Vital Signs Pulse Pulse Resp BP BP Pulse Ox O2 Del Method 07/23/24 11:39 102 H 12 131/96 98 BiPAP 07/23/24 11:04 110 H 14 100 07/23/24 07:36 102 H 07/23/24 07:15 105 H 18 100 07/23/24 05:50 106 H 14 100 07/23/24 05:17 106 H 15 114/82 91 07/23/24 04:37 102 H 13 106/84 07/23/24 03:41 Nasal Cannula 07/23/24 03:41 102 H 14 111/83 97 Nasal Cannula 07/23/24 02:27 103 H 13 118/50 L 99 Nasal Cannula 07/23/24 02:10 105 H 13 118/50 L 07/23/24 02:02 104 H 14 180/132 H 07/23/24 01:09 102 H 16 98 07/23/24 01:02 103/75 07/23/24 00:51 105 H 16 97 07/23/24 00:34 102 H 12 103/75 98 Nasal Cannula 07/23/24 00:33 106 H 10 L 98 O2 Flow Rate FiO2 07/23/24 11:39 07/23/24 11:04 40 07/23/24 07:36 07/23/24 07:15 40 07/23/24 05:50 40 10/06/24 05:17 07/23/24 04:37 07/23/24 03:41 4 07/23/24 03:41 4 07/23/24 02:27 4 07/23/24 02:10 07/23/24 02:02 07/23/24 01:09 07/23/24 01:02 07/23/24 00:51 07/23/24 00:34 4 07/23/24 00:33
--- NOTE | 2024-07-23 14:25 | Electrocardiogram Report ---
Test Reason : Blood Pressure : */* mmHG Vent. Rate : 97 BPM Atrial Rate : 97 BPM P-R Int : 142 ms QRS Dur : 96 ms QT Int : 350 ms P-R-T Axes : 34 -30 54 degrees QTcB Int : 444 ms Normal sinus rhythm Left axis deviation Incomplete right bundle branch block Possible Anterior infarct (cited on or before 13-Jul-2024) Abnormal ECG When compared with ECG of 13-Jul-2024 18:19, No significant change was found Confirmed by Nishant Shah ([id number]) on 07/23/2024 2:24:56 PM Referred By: REFERRED SELF Confirmed By: Nishant Shah
[2024-07-23] MEDS: CYCLOBENZAPRINE HCL 10 MG TAB PO SCH (20:52)
[2024-07-24 06:35] LABS: Hematocrit (blood only) 37.9 % (42.0-52.0); Hemoglobin 11.6 g/dl (14.0-18.0); Mean Corpuscular Hemoglobin 26.5 pg (25.0-34.0); Mean Corpuscular Hgb Conc 30.6 g/dL (32.0-36.0); Mean Corpuscular Volume 86.7 fL (80.0-100.0); Mean Platelet Volume 9.3 fL (9.4-12.4); Platelet Count 236 K/uL (130-400); RDW Coefficient of Variation 14.6 % (11.5-14.5); RDW Standard Deviation 46.3 fL (36.4-46.3); Red Blood Count 4.37 M/uL (4.70-6.10); White Blood Count 7.42 K/ul (4.8-10.8)
[2024-07-24 06:56] LABS: Calcium 9.2 mg/dl (8.6-10.3); Creatinine Clr Calc Pharmacy 93.5 ml/min; Potassium 4.8 mmol/L (3.5-5.1)
[2024-07-24] MEDS: HYDROmorphone INJ 1 MG/ML SYRINGE IV PRN (08:38)
[2024-07-24] MEDS: bisacodyL 10 MG SUPP PR SCH (10:15)
[2024-07-24] MEDS: DOCUSATE SODIUM 100 MG CAP PO PRN (10:15)
[2024-07-24] MEDS: POLYETHYLENE (MIRALAX) 17 GM PACK PO PRN (10:15)
--- NOTE | 2024-07-24 11:09 | XRay Report ---
KUB HISTORY: Acute generalized abdominal pain ro obstruction. abd pain COMPARISON: CT 07/22/2024 FINDINGS: Surgical suture material projects of the abdominal right lower quadrant. Vascular calcifica tions. Air-filled loops of large and small bowel a few borderline dilated loops of small bowel within the midabdomen. No renal calculi. No ureteral calculi. No pneumoperitoneum or pneumatosis. No fract ure. IMPRESSION: There are a few borderline dilated loops of small bowel in the midabdomen which are favored to be phy siologic. A low-grade bowel obstruction considered less likely. ACT 112: Negative or not required by law. The above report was generated using voice recognition software. It may contain grammatical, syntax o r spelling errors. Electronically signed by: Gil Hilliard M.D. 07/24/2024 11:07 AM
[2024-07-24] MEDS: oxyCODONE HCL IR 5 MG TAB (IMMEDIATE RELEASE) PO PRN (11:43)
[2024-07-24] MEDS: PROMETHAZINE 12.5 MG/50.5 ML BAG IV PRN (11:55)
--- NOTE | 2024-07-24 14:16 | Hospitalist Progress Note ---
Date of Service July 24, 2024 Assessment & Plan (1) Hypertensive crisis: Plan: 48-year-old male with PMH of chronic diastolic heart failure [EF 55 to 60%, 2023 TTE], HTN, HLD, COPD/RLD, DAMION [currently CPAP noncompliance], PE/DVT status post anticoagulation, DM 2 insulin requiring, NAFLD, GERD, gastroparesis, pancreatitis, chronic anemia [baseline hemoglobin 11-12], and morbid obesity, intellectual disability, ongoing tobacco abuse who was recently admitted for decompensated heart failure and was discharged on a higher dose of metoprolol and torsemide and added was Aldactone presents this time with diffuse abdominal pain associated with nausea and emesis and was noted to have SBP of 200 at presentation. He is being managed for the following: Hypertensive crisis: Likely secondary to GI upset/possible viral illness SBP elevated into 100 at presentation, currently better controlled Continue home blood pressure medication as able. Resume losartan 07/24 as PASHA improved, c/t hold aldactone and torsemide until po intake improves. As needed blood pressure medications on board, continue telemetry monitoring. GI upset/possible viral illness/Abdominal pain History of gastroparesis Patient presenting with diffuse abdominal pain associated with nausea and emesis. Patient reports improving abdominal pain, denies further nausea and vomiting. On clear liquid diet, General surgery evaled, appreciate recommendation. C/w analgesis/antiemetic. Advance diet as tolerated. Repeat KUB 07/24 s/o low grade bowel obstruction. dulcolax pr to stimulate BM. c/w PO bowel reg. Acute kidney injury: Likely secondary to illness. Baseline creatinine around 1.2, admitting creatinine of 1.51, admitting CTAP reviewed. Creatinine resoved. BP meds as above. s/p IV fluid, labs in AM. Other chronic medical conditions: Continue with/resume home meds as and when able. chronic diastolic heart failure (EF 55 to 60%, TTE 2023), patient on dry side hyperlipidemia, on statin Rx chronic hypercapnic respiratory failure, hx COPD/RLD, DAMION (current CPAP noncompliance) PE/DVT status post anticoagulation DM2 insulin requiring, suboptimal control as of recent hemoglobin A1c of 8.6/April 2024 hx NAFLD hx pancreatitis chronic anemia, hemoglobin at baseline intellectual disability as per records ongoing tobacco abuse:Nicotine patch as needed DVT prophylaxis. Heparin subcu Full code Text document was generated using [employer] voice recognition software. It may contain grammatical or spelling errors. Kindly contact undersigned for clarification of any documentation item in question. Admission and Anticipated Discharge Date Admission Date: July 22, 2024 Subjective Patient was seen and examined at bedside. Patient was lying in bed, on RA, resting comfortably, sleeping. Patient woke up to exam, AO x4, denies fever/chest pain/cough/shortness of breath. Pt reports some abd pain, has not moved bowel, but is moving gas, denies nausea and vomiting. Physical Exam Physical Exam: GENERAL: Comfortable, pleasant, morbidly obese, no respiratory distress SKIN: Pallor, warm HEENT: Alopecia, pale palpebral conjunctivae, no ptosis, moist buccal mucosa. NECK : Supple, short neck, no tenderness CHEST : Decreased breath sounds, no tenderness HEART : Tachycardic, no obvious murmurs ABDOMEN: Some distention, central abdominal tenderness - minimal EXTREMITIES : Minimal swelling without tenderness, left BKA stump NEUROLOGIC : Coherent, no facial asymmetry, no other gross focality Results & Data Results & Data Vital Signs (Past 12 Hours) Vital Signs Temp Pulse Pulse Resp BP BP Pulse Ox 07/24/24 12:04 36.9 C 90 16 147/65 H 90 07/24/24 08:40 07/24/24 07:48 36.4 C L 99 H 14 153/77 H 99 07/24/24 07:37 94 H 16 97 07/24/24 07:00 94 H 07/24/24 03:39 36.8 C 73 18 100/58 L 92 07/24/24 02:29 96 H 13 95 O2 Del Method FiO2 07/24/24 12:04 Room Air 07/24/24 08:40 Room Air 07/24/24 07:48 BiPAP 07/24/24 07:37 40 07/24/24 07:00 07/24/24 03:39 Room Air, CPAP 07/24/24 02:29 40
[2024-07-24] MEDS: LOSARTAN POTASSIUM 50 MG TAB PO SCH (20:28)
[2024-07-25 06:10] LABS: Hematocrit (blood only) 37.9 % (42.0-52.0); Hemoglobin 11.6 g/dl (14.0-18.0); Mean Corpuscular Hemoglobin 26.1 pg (25.0-34.0); Mean Corpuscular Hgb Conc 30.6 g/dL (32.0-36.0); Mean Corpuscular Volume 85.2 fL (80.0-100.0); Mean Platelet Volume 9.4 fL (9.4-12.4); Platelet Count 231 K/uL (130-400); RDW Coefficient of Variation 14.1 % (11.5-14.5); RDW Standard Deviation 43.4 fL (36.4-46.3); Red Blood Count 4.45 M/uL (4.70-6.10); White Blood Count 6.82 K/ul (4.8-10.8)
[2024-07-25 06:27] LABS: BUN Creatinine Ratio 14.1 (10-20); Calcium 9.5 mg/dl (8.6-10.3); Creatinine Clr Calc Pharmacy 145.3 ml/min; Magnesium 1.6 mg/dl (1.7-2.4); Phosphorus 4.4 mg/dl (2.5-4.9); Potassium 4.3 mmol/L (3.5-5.1)
[2024-07-25] MEDS: DICYCLOMINE HCL 10 MG CAP PO PRN (07:29)
[2024-07-25] MEDS: MAGNESIUM SULFATE / D5W 1 GM/100 ML BAG IV SCH (09:10)
[2024-07-25] MEDS: SPIRONOLACTONE 25 MG TAB PO SCH (09:54)
[2024-07-25] MEDS: TORSEMIDE 20 MG TAB PO SCH (09:54)
[2024-07-25] MEDS: LACTULOSE SYRUP 20 GM/30 ML UDC PO ONE (10:15)
[2024-07-25] MEDS: SUCRALFATE 1 GM/10 ML UDC PO SCH (10:50)
[2024-07-25 11:18] VITALS: O2SAT 94
[2024-07-25] MEDS: SOD PHOSPHATE/SOD BIPHOSPHATE ENEMA 132 ML BTL PR STA (12:49)
--- NOTE | 2024-07-25 14:45 | Hospitalist Progress Note ---
Date of Service July 25, 2024 Assessment & Plan (1) Hypertensive crisis: Plan: 48-year-old male with PMH of chronic diastolic heart failure [EF 55 to 60%, 2023 TTE], HTN, HLD, COPD/RLD, DAMION [currently CPAP noncompliance], PE/DVT status post anticoagulation, DM 2 insulin requiring, NAFLD, GERD, gastroparesis, pancreatitis, chronic anemia [baseline hemoglobin 11-12], and morbid obesity, intellectual disability, ongoing tobacco abuse who was recently admitted for decompensated heart failure and was discharged on a higher dose of metoprolol and torsemide and added was Aldactone presents this time with diffuse abdominal pain associated with nausea and emesis and was noted to have SBP of 200 at presentation. He is being managed for the following: Hypertensive crisis: Likely secondary to GI upset/possible viral illness SBP elevated to 200 at presentation, currently better controlled Continue home blood pressure medication as able. Resume home BP meds. As needed blood pressure medications on board, continue telemetry monitoring. GI upset/possible viral illness/Abdominal pain History of gastroparesis Patient presenting with diffuse abdominal pain associated with nausea and emesis. Patient reports improving abdominal pain, denies further nausea and vomiting. General surgery evaled, appreciate recommendation. Tolerating adv of diet, gastric pain not related entirely w/ PO intake, today had one after waking up. Pt and his states his gastric pain improves by using carafate at home. c/w panto bid, add carafate, monitor. C/w analgesis/antiemetic. Repeat KUB 10/ s/o low grade bowel obstruction. dulcolax pr to stimulate BM. c/w PO bowel reg. pt has not moved bowels in several days, give additional lactulose po and fleet enema today. Acute kidney injury: Likely secondary to illness. Baseline creatinine around 1.2, admitting creatinine of 1.51, admitting CTAP reviewed. Creatinine resolved. BP meds as above. s/p IV fluid, labs in AM. Other chronic medical conditions: Continue with/resume home meds as and when able. chronic diastolic heart failure (EF 55 to 60%, TTE 2023), patient on dry side hyperlipidemia, on statin Rx chronic hypercapnic respiratory failure, hx COPD/RLD, DAMION (current CPAP noncompliance) PE/DVT status post anticoagulation DM2 insulin requiring, suboptimal control as of recent hemoglobin A1c of 8.6/April 2024 hx NAFLD hx pancreatitis chronic anemia, hemoglobin at baseline intellectual disability as per records ongoing tobacco abuse: Nicotine patch as needed DVT prophylaxis. Heparin subcu Full code Dispo: once pt moves bowel. Text document was generated using [employer] voice recognition software. It may contain grammatical or spelling errors. Kindly contact undersigned for clarification of any documentation item in question. Admission and Anticipated Discharge Date Admission Date: July 22, 2024 Subjective Patient was seen and examined at bedside. Patient was lying in bed, on RA, resting comfortably, awake. Patient reports having abdominal pain in the morning when he woke up, but that got better by the time. Denies any abdominal pain after eating. Per RN, patient ate okay, no nausea or vomiting. Patient has not moved bowels in several days, will give lactulose, if not helpful, will utilize Fleet enema. Physical Exam Physical Exam: GENERAL: Comfortable, pleasant, morbidly obese, no respiratory distress SKIN: Pallor, warm HEENT: Alopecia, pale palpebral conjunctivae, no ptosis, moist buccal mucosa. NECK : Supple, short neck, no tenderness CHEST : Decreased breath sounds, no tenderness HEART : Tachycardic, no obvious murmurs ABDOMEN: Some distention, central abdominal tenderness - none EXTREMITIES : Minimal swelling without tenderness, left BKA stump NEUROLOGIC : Coherent, no facial asymmetry, no other gross focality Results & Data Results & Data Vital Signs (Past 12 Hours) Vital Signs Temp Pulse Pulse Resp BP BP Pulse Ox 07/25/24 14:00 96 H 07/25/24 11:16 36.7 C 96 H 14 137/73 94 07/25/24 07:40 07/25/24 07:24 36.7 C 99 H 22 158/73 H 92 07/25/24 07:00 89 07/25/24 04:00 36.7 C 98 H 20 145/75 H 96 07/25/24 03:50 88 12 95 O2 Del Method FiO2 07/25/24 14:00 07/25/24 11:16 Room Air 07/25/24 07:40 Room Air 07/25/24 07:24 BiPAP 07/25/24 07:00 07/25/24 04:00 CPAP 07/25/24 03:50 40
--- NOTE | 2024-07-25 15:22 | Discharge Summary ---
Date of Service July 25, 2024 Admission HPI Per Admitting Provider History obtained from patient and records. Medical history significant for chronic diastolic heart failure (EF 55 to 60%, TTE 2023), hypertension, hyperlipidemia, COPD/RLD, DAMION (current CPAP noncompliance), PE/DVT status post anticoagulation, DM2 insulin requiring, NAFLD, GERD, gastroparesis, history of pancreatitis, chronic anemia (baseline hemoglobin 11-12), morbid obesity, intellectual disability as per records, ongoing tobacco abuse. Recent confinement July 13 to 2023 for decompensated heart failure. Patient discharged on higher metoprolol and torsemide home doses. Spironolactone added to patient's regimen. Last night, patient noted diffuse abdominal pain associated with nausea and emesis. No change in bowel habits. Not sure about sick contacts. Denies headache, chest pain, cough, SOB. Highest SBP of 200s documented at the ER. 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 Admission Exam Per Admitting Provider GENERAL: Comfortable, pleasant, morbidly obese, no respiratory distress SKIN: Pallor, warm HEENT: Alopecia, pale palpebral conjunctivae, no ptosis, dry buccal mucosa, na rayne cannula in place NECK : Supple, short neck, no tenderness CHEST : Decreased breath sounds, no tenderness HEART : Tachycardic, no obvious murmurs ABDOMEN: Some distention, central abdominal tenderness EXTREMITIES : Minimal swelling without tenderness, left BKA stump NEUROLOGIC : Coherent, no facial asymmetry, no other gross focality Principal Diagnosis Hypertensive crisis GI upset/abdominal pain ISO gastroparesis history Acute kidney injury Discharge Exam GENERAL: Comfortable, pleasant, morbidly obese, no respiratory distress SKIN: Pallor, warm HEENT: Alopecia, pale palpebral conjunctivae, no ptosis, moist buccal mucosa. NECK : Supple, short neck, no tenderness CHEST : Decreased breath sounds, no tenderness HEART : Tachycardic, no obvious murmurs ABDOMEN: Some distention, central abdominal tenderness - none EXTREMITIES : Minimal swelling without tenderness, left BKA stump NEUROLOGIC : Coherent, no facial asymmetry, no other gross focality Discharge Data Allergies Allergy/AdvReac Type Severity Reaction Status Date / Time cefaclor [From [facility]] Allergy Unknown childhood Verified 07/22/24 20:53 allergy ? Cephalosporins Allergy Unknown Unknown Verified 07/22/24 20:53 [email or web address] AdvReac Unknown put me Verified 07/22/24 20:53 [From [facility]] into ketoacidosis? NSAIDS (Non-Steroidal AdvReac Unknown use with Verified 07/22/24 20:53 Anti-Inflamma caution : hx esophagus damage Consultations 07/22/24 20:03 ED Decision to Admit Stat Ordered Studies 07/22/24 16:30 CT Abd and Pelvis [CT abd pelvis IV con only] Stat Hospital Course (1) Hypertensive crisis: 48-year-old male with PMH of chronic diastolic heart failure [EF 55 to 60%, 2023 TTE], HTN, HLD, COPD/RLD, DAMION [currently CPAP noncompliance], PE/DVT status post anticoagulation, DM 2 insulin requiring, NAFLD, GERD, gastroparesis, pancreatitis, chronic anemia [baseline hemoglobin 11-12], and morbid obesity, intellectual disability, ongoing tobacco abuse who was recently admitted for decompensated heart failure and was discharged on a higher dose of metoprolol and torsemide and added was Aldactone presents this time with diffuse abdominal pain associated with nausea and emesis and was noted to have SBP of 200 at presentation. He is being managed for the following: Hypertensive crisis: Likely secondary to GI upset/possible viral illness SBP elevated to 200 at presentation, currently better controlled Continue home blood pressure medication as able. c/w home BP meds. BP under control. GI upset/possible viral illness/Abdominal pain History of gastroparesis Patient presenting with diffuse abdominal pain associated with nausea and emesis. Patient reports improving abdominal pain, denies further nausea and vomiting. General surgery evaled, appreciate recommendation. Tolerating adv of diet, gastric pain not related entirely w/ PO intake, today had one after waking up before breakfast. Pt and his states his gastric pain improves by using carafate at home. c/w panto bid, added carafate, monitor. C/w analgesis/antiemetic. Repeat KUB 07/24 s/o low grade bowel obstruction. c/w bowel reg w/ a goal of 1-2 bms a day. Pt moved bowel. pt is hemodynamically stable and would like to go home. Acute kidney injury: Likely secondary to illness. Baseline creatinine around 1.2, admitting creatinine of 1.51, admitting CTAP reviewed. Creatinine resolved. BP meds as above. Other chronic medical conditions: Continue with/resume home meds as and when able. chronic diastolic heart failure (EF 55 to 60%, TTE 2023), patient on dry side hyperlipidemia, on statin Rx chronic hypercapnic respiratory failure, hx COPD/RLD, DAMION (current CPAP noncompliance) PE/DVT status post anticoagulation DM2 insulin requiring, suboptimal control as of recent hemoglobin A1c of 8.6/April 2024 hx NAFLD hx pancreatitis chronic anemia, hemoglobin at baseline intellectual disability as per records ongoing tobacco abuse: Nicotine patch as needed DVT prophylaxis. Heparin subcu Full code Patient is being discharged to home with following instruction at the point of discharge: Follow-up with your primary care physician within a week time and likely you will need labs CBC/CMP/magnesium/phosphorus. Continue to take your home blood pressure medication as prior. Continue to take soft diet upon discharge for next several days. Utilize [id number] bowel regimen with a goal of 1-2 bowel movements a day. Take your medications as prescribed. Please make sure that you are able to get your medications today by calling your pharmacy before you leave the hospital so that your treatment continuity is not broken. Text document was generated using [employer] voice recognition software. It may contain grammatical or spelling errors. Kindly contact undersigned for clarification of any documentation item in question. Home Health Attestation I certify that this patient is under my care and that I, or a physicians litigation legal assistant working with me, had a face to-face encounter that meets the home health veyr-[id number] encounter requirements with this patient. The encounter with the patient was in whole, or in part, for the following medical condition, which is the primary reason for home health care (list medical condition): I certify that, based on my findings, the following services are medically necessary home health services: My clinical findings support the need for the above services because: Further, I certify that my clinical findings support that this patient is homebound (i.e. absences from home require considerable and taxing effort and are for medical reasons or baptism services or infrequently or of short duration when for other reasons) because: Certification for Home Health Services: Based on the above findings, I certify that this patient is confined to the home and needs intermittent fci care, physical therapy and/or speech therapy or continues to need occupational therapy. The patient is under my care, and I have initiated the establishment of the plan of care. This patient will be followed by a physician who will periodically review the plan of care. Total Time Total Time Spent Total Time Spent (In Minutes): 45 Discharge Plan Discharge Items Patient Disposition: Home - Self-Care Reason For Visit: HTN CRISIS Discharge Diagnosis: Hypertensive crisis GI upset/abdominal pain ISO gastroparesis history Acute kidney injury Activity: Resume your previous activity Non-emergency contact: Primary Care Provider Call non-emergency contact if: you have any medication questions and your symptoms worsen Follow-up/Referrals: Velasquez Valencia MD [Primary Care Provider] - 07/31/24 11:00 am (Date & Time 07/31/2024 11:00 AM Provider Velasquez Valencia MD [facility] ) Diet: Carb Consistent or DM2 Addtl Attending Provider Instructions: Follow-up with your primary care physician within a week time and likely you will need labs CBC/CMP/magnesium/phosphorus. Continue to take your home blood pressure medication as prior. Continue to take soft diet upon discharge for next several days. Utilize [id number] bowel regimen with a goal of 1-2 bowel movements a day. Take your medications as prescribed. Please make sure that you are able to get your medications today by calling your pharmacy before you leave the hospital so that your treatment continuity is not broken. Pending Studies at Discharge: No Stand-Alone Forms: My [employer], Smoking Cessation Medications and DC Order Prescriptions: New sucralfate 100 mg/mL Suspension 1 g PO QID 10 Days Qty: 400 0RF Continued insulin aspart U-100 [Novolog FlexPen U-100 Insulin] 100 unit/mL (3 mL) insulin pen 18 unit subcut TID Patient Comments: 16 all the time Rx Instructions: w/meals dicyclomine 10 mg capsule 10 mg PO QID PRN (Reason: Diarrhea) famotidine 20 mg tablet 20 mg PO HS pantoprazole 40 mg tablet,delayed release (DR/EC) 40 mg PO BID metformin 500 mg tablet 1,000 mg PO BID atorvastatin 20 mg Tablet 20 mg PO QAM Qty: 30 0RF aspirin 81 mg Tablet,Delayed Release (Dr/Ec) 81 mg PO QAM Qty: 30 0RF polyethylene glycol 3350 [Miralax] 17 gram/dose powder 17 g PO DAILY PRN (Reason: constipation) Qty: 119 0RF cyclobenzaprine 10 mg tablet 10 mg PO HS gabapentin 100 mg capsule See Rx Instructions .ROUTE .COMPLEX Rx Instructions: TAKES 100 MG QAM, THEN 200 MG QHS. metoclopramide HCl 10 mg tablet 10 mg PO TID insulin glargine [Lantus Solostar U-100 Insulin] 100 unit/mL (3 mL) insulin pen 40 unit subcut BID Rx Instructions: TAKES 40 UNITS QAM, THEN 40 UNITS QHS. budesonide-formoterol [Symbicort] 80-4.5 mcg/actuation HFA aerosol inhaler 2 puff INHALATION BID albuterol sulfate 90 mcg/actuation HFA aerosol inhaler 2 inh inhalation Q6H PRN (Reason: WHEEZING/SOB) docusate sodium [Col-Rite] 100 mg capsule 100 mg PO BID PRN (Reason: Constipation) Qty: 60 0RF Movantik 25 mg tablet 25 mg PO DAILY losartan 50 mg Tablet 50 mg PO BID Qty: 60 0RF torsemide 20 mg Tablet 20 mg PO QAM Qty: 30 0RF terazosin 1 mg Capsule 1 mg PO HS Qty: 30 0RF metoprolol succinate [Toprol XL] 100 mg tablet extended release 24 hr 100 mg PO BID Qty: 60 0RF spironolactone 25 mg Tablet 25 mg PO QAM Qty: 30 0RF Discharge Orders: Discharge Order (Routine); Ordered 07/25/24 Ordered By: Ashley Reese Admission Data Admit Date/Time: 07/22/24 21:48 Attending Provider: Ashley Reese Admit Provider: Zach Brown Primary Care Provider: Velasquez Valencia Other Providers: Zach Brown Supervising Physician Co-Signing Physician Notes As per physician litigation legal assistant Nonspecific abdominal pain not localized without any changes in bowel habits Past history laparoscopic appendectomy approximately a year ago The abdomen no localized tenderness some guarding around the periumbilical area and both lower quadrants no palpable hernia or defects at the umbilical trocar site over the patient has moderate abdominal wall tissue and 5 mm trocar was used at the site CAT scan does not show any hernia At this point parameters are improving no acute surgical problem will follow
[2024-07-25 15:34] VITALS: PULSE 102; RESP 20; TEMP 98.4
[2024-07-25 16:07] VITALS: BP 145/75
== END 2024-07-25 16:47 | disposition home or self-care (01) | DRG 305 ==
LOC: ED 15:26 → EDINP 21:48 → 2W 07-23 00:37

== ENCOUNTER 2024-09-15 10:51 | Inpatient (IN) ==
--- OUTSIDE RECORDS SUMMARY | 2024-09-15 10:59 | External Medical Summary | Summary of Care ---
Author Name Unknown Organization [facility] Address [address] [place] [address] Phone [phone] Care Team Providers Care Junior Paralegal Name Role Phone Velasquez Valencia MD Primary Care Provider [phone] Reason for Referral * Evaluate & Treat - Unlimited Visits (Within 30 days (routine)) - Authorized Specialty Diagnoses / Procedures Referred By Bismark brown Referred To Contact Sleep Medicine / Sleep Disorders Diagnoses Abnormal weight gain Class 3 severe obesity due to excess calories with serious comorbidity and body mass index (BMI) of 40.0 to 44.9 in adult (HCC) COPD, moderate (HCC) Obstructive sleep apnea Elaina Mendoza CRNP [address] [place] [address] Phone: tel: fax: Referral ID Status Reason Start Date Expiration Date Visits Requested Visits Authorized [id number] Authorized Specialty Services Required 4 2 2 Question Answer [facility] SLEEP MED ADULT REFERRAL Sleep Apnea Testing and Management Does the patient snore and/or gasp at night or has been told they stop breathing at night? Yes, document patient's symptoms in progress note Referral Priority Within 30 days (routine) Where should this appointment be scheduled? [facility] Comments [facility], non compliant w/CPAP., enrolled in bariatric surgery program Reason for Visit * Reason Comments NEW PATIENT * Evaluate & Treat - Unlimited Visits (Within 10 days (routine)) - Authorized Specialty Diagnoses / Procedures Referred By Contact Referred To Contact GI NUTRITION/IM / Gastroenterology Diagnoses Class 2 severe obesity with serious comorbidity and body mass index (BMI) of 39.0 to 39.9 in adult, unspecified obesity type ([facility]) Brook Steiner DO [address] [place] [address] Phone: tel:[phone] fax:[phone] Referral ID Status Reason Start Date Expiration Date Visits Requested Visits Authorized [id number] Authorized Specialty Services Required 08/22/[phone] Encounter Details Date Type Department Care Team (Late st Contact Info) Description 09/06/2024 7:40 AM EST Office Visit Nutrition & Weight Management, [place] [address] [place] [address] Elaina Mendoza CRNP [address] [place] [address] Abnormal weight gain*; Class 3 severe obesity due to excess calories with serious comorbidity and body mass index (BMI) of 40.0 to 44.9 in adult ([facility]); Type 2 diabetes mellitus with hemoglobin A1c goal of less than 7.0% ([facility]); Hyperlipidemia with target LDL less than 70; COPD, moderate ([facility]); Obstructive sleep apnea; DDD (degenerative disc disease), cervical; Hx of BKA, left ([facility]); Axsowgj-Fqsjo-Xwzcn disease; Tobacco use disorder; Gastroparesis; Essential hypertension with goal blood pressure less than 140/90; Depression with anxiety; Edentulous Allergies Active Allergy Reactions Criticality Noted Date Comments Pioglitazone 07/19/2024 Cefaclor Unknown 07/26/2018 As child Empagliflozin Other (Please comment) 05/16/2021 DKA with hospitalization Nsaids High 04/19/2019 Gastric problems Other Reaction(s): gastroparesis, kidney problems, use with caution : hx esophagus damage documented as of this encounter (statuses as of 09/06/2024) Medications Polyethylene Glycol 3350 17 GM Oral Packet (Miralax) Mix 1 Packet in 4 to 8 ounces of any beverage and drink by mouth in the morning. 14 Each 11/05/2023 11:40 AM EST 11/06/19 Active Additional Information Patient not taking.Reported on 09/06/2024 Ondansetron HCl 4 MG Oral Tablet Take 1 Tablet by mouth every 8 hours as needed for Nausea. 20 Tablet 11/05/2023 11:40 AM EST 11/05/19 Active Additional Information Patient not taking.Reported on 09/06/2024 Timmy AkilahHerb 300 UNIT/ML Subcutaneous Solution Pen-injector (Insulin Glargine (1 Unit Dial))Indication s:Type 2 diabetes mellitus with hemoglobin A1c goal of less than 7.0% (HCC) Inject 40 units twice daily- this replaces lantus 54 mL 4 08/14/2024 12:19 PM EDT 01/19/20 Active Additional Information Patient taking differently: Inject 48 units twice daily- this replaces lantus, Reported on 09/06/2024 BD Pen Needle Short U/F 31G X 8 MM (Insulin Pen Needle)Indicatio ns:Type 2 diabetes mellitus with hemoglobin A1c goal of less than 7.0% (HCC) Use to inject insulin 5 times daily 500 Each 3 07/31/2024 8:17 AM EDT 01/19/20 Active Insulin Aspart FlexPen 100 UNIT/ML Subcutaneous Solution Pen-injectorIndi cations:Type 2 diabetes mellitus with hemoglobin A1c goal of less than 7.0% (HCC) Inject 32 units with breakfast 22 units with lunch and 22 units with supper plus CF of 1:12 over 150. Max daily dose of 115 units 120 mL 4 02/18/2024 10:04 AM EDT 02/16/20 Active Polyethylene Glycol 3350 17 GM/SCOOP Oral Powder (Miralax) Take 1 scoop daily in 8 ounces of water. 510 g 5 04/21/20 Active Additional Information Patient not taking.Reported on 09/06/2024 OneTouch Verio In Vitro Strip (Glucose Blood)Indication s:Type 2 diabetes mellitus with hemoglobin A1c goal of less than 7.0% (HCC) Use to check blood sugar once daily as needed 100 Strip 05/10/2024 5:28 PM EDT 05/09/20 Active OneTouch Delica Lancets 33GIndications:T ype 2 diabetes mellitus with hemoglobin A1c goal of less than 7.0% (HCC) Use to check blood sugars once daily as needed 100 Each 05/10/2024 5:28 PM EDT 05/09/20 24 Active Dexcom G6 SensorIndication s:Type 2 diabetes mellitus with hemoglobin A1c goal of less than 7.0% (HCC) Use as directed every 10 days. 9 Each 5 07/20/2024 10:09 AM EDT 07/18/20 24 Active Dexcom G6 TransmitterIndic ations:Type 2 diabetes mellitus with hemoglobin A1c goal of less than 7.0% (HCC) Use as directed. Change every 90 days 1 Each 5 07/20/2024 9:12 AM EDT 07/18/20 24 Active Omnipod 5 [id number] Intro Gen 5 KitIndications:T ype 2 diabetes mellitus with hemoglobin A1c goal of less than 7.0% (HCC) Use as directed- bring this to visit on Sep 18 1 Kit 08/25/2024 1:11 PM EST 08/18/20 24 Active Omnipod 5 [id number] Pods Gen 5Indications:Typ e 2 diabetes mellitus with hemoglobin A1c goal of less than 7.0% (HCC) Use as directed. Change pod every 2 days 45 Each 3 08/18/2024 6:12 PM EDT 08/18/20 24 Active Insulin Aspart 100 UNIT/ML Injection Solution (NovoLOG)Indicat ions:Type 2 diabetes mellitus with hemoglobin A1c goal of less than 7.0% (HCC) Inject up to 120 units daily using Omnipod 5 120 mL 4 08/22/2024 3:39 PM EST 08/18/20 24 Active Haloperidol 1 MG Oral Tablet (Haldol) 08/08/20 24 Active Omeprazole 40 MG Oral Capsule Delayed Release (PriLOSEC) Take 1 Capsule by mouth in the morning. 90 Capsule 3 08/22/20 24 Active Spiriva Respimat 2.5 MCG/ACT Inhalation Aerosol Solution 08/28/20 24 Active Losartan Potassium 50 MG Oral Tablet (Cozaar) TAKE 1 TABLET BY MOUTH TWICE DAILY 60 Tablet 5 08/21/20 24 024 Discontin ued(Medic ation List Clean Up) documented as of this encounter (statuses as of 09/06/2024) Active Problems Problem Noted Date Diagnosed Date Well adult exam 08/06/2024 Overview (08/06/2024): 08/10 EGD poor prep-repeat. Chest pain, non-cardiac 08/03/2024 Hx of BKA, left 04/27/2024 History of [...] A1c goal of less than 7.0% 08/01/2009 Overview (02/11/2016): Modified per Diabetes protocol #14. ICD-10 update of inactive term Morbid obesity 12/15/2002 Overview (01/13/2010): Per Obesity Taxonomy documented as of this encounter (statuses as of 09/06/2024) Resolved Problems Problem Noted Date Diagnosed Date [...] 35.0 to 39.9 with serious comorbidity 01/13/2010 Overview (08/03/2018): Per Obesity Taxonomy ICD-10 update of inactive diagnosis HTN, GOAL BELOW 130/80 11/14/200906/09 Overview (11/14/2009): Per HTN Taxonomy. Diabetic polyneuropathy 04/12/200704/2016 Overview (01/03/2016): ICD-10 update of inactive term DM type 2, not at goal 12/01/200511/01 ADVANCE DIRECTIVE INFORMATION 07/07/2005 10/15/2017 Overview (10/26/2006): No, Advance Directive brochure offered , patient declined. . HTN, goal below 140/90 12/15/200211/14 Overview (11/14/2009): Per HTN Taxonomy. LOC PRIM OSTEOARTH- right ANKLE 07/18/2002 04/22/2017 Tobacco use disorder 02/03/2001 016 DM type 2, not at goal 08/01 Overview (08/01/2009): Modified per Diabetes protocol #14. OTHER 04/22/2017 Overview (10/26/2006): osseochondrosis ankle Primary localized osteoarthrosis, lower leg 10/15/2017 documented as of this encounter (statuses as of 09/06/2024) Immunizations Name Administration Dates Next Due COVID-19 mRNA, LNP-s, No Pre serve, 2-Dose Series (Pfizer) 10/21/2021,03/01/2021,02/07/2021 H1N1 2009 Influenza, IM 11/04/2009 Pneumococcal Conjugate Vacci ne, 20-valent (Rryhaye02) 07/09/2023 Pneumococcal Polysaccharide PPV23 (Pneumovax) 11/03/2015,02/09/2006 Seasonal [...] Smoking Tobacco: Every Day Cigarettes 1.5 33 Passive Smoke Exposure: Current Smokeless Tobacco: Never Tobacco Cessation:Ready to Q [...] Date Recorded PHQ Adult Total Score 0 04/19/2024 Hunger Vital Sign Answer Date Recorded Within the past 12 months, y ou worried that your food would run out before you got the money to buy more. Never true 08/15/20 24 Within the past 12 months, t he food you bought just didn't last and you didn't have money to get more. Never true 08/15/2024 Childcare Answer Date Recorded Do you feel overwhelmed with taking care of a child, family member or friend? No 08/15/2024 Does your family need help f inding childcare? (Household - for ages 0-17 years) Not on file 08/15/2024 Clothing Answer Date Recorded Have you been unable to get clothing when it was really needed? No 08/15/2024 Is your family able to get c lothes or diapers when needed? (Household - for ages 0-17 years) Not on file 08/15/2024 Personal Safety Answer Date Recorded Do you feel unsafe or have concerns for your saf ety? No 08/15/2024 Do you have concerns for you r family's safety? (Household - for ages 0-17 years) Not on file 08/15/2024 Utilities Answer Date Recorded Do you have trouble paying y our heating, water, or electric bill? No 08/15/2024 Is your family able to pay t he heat, water, or electric bill? (Household - for ages 0-17 years) Not on file 08/15/2024 Does your family have access to good internet? (Household - for ages 0-17 years) Not on file 08/15/2024 Employment Status Answer Date Recorded Are you unemployed or without regular income? No 08/15/2024 Does the household have a re gular source of income? (Household - for ages 0-17 years) Not on file 08/15/2024 Social Connections Answer Date Recorded How often do you feel lonely or isolated from th ose around you? Never 08/15/2024 Financial Resource Strain Answer Date R ecorded Do you have any trouble payi ng for your medications, or do you think you might in the future? No 08/15/2024 Does your family have troubl e paying for medicine? (Household - for ages 0-17 years) Not on file 08/15/2024 Transportation Needs Answer Date Record ed READ ONLY Do you have troubl e getting a ride to medical visits or work? Never True 08/15/2024 Does your family have a hard time getting a ride to doctors visits? (Household - for ages 0-17 years) Not on file 08/15/2024 Has lack of transportation k ept you from medical appointments, meetings, work, or from getting things needed for daily living? Check all that apply. No 08/15/2024 Do you (or your family) have trouble finding or paying for a ride (transportation)? (Household - for ages 0-17 years) Not on file 08/15/2024 Housing Stability Answer Date Recorded Do you currently live in a s helter or have no steady place to sleep at night? No 08/15/2024 READ ONLY Do you think you a re at risk of becoming homeless? No 08/15/2024 Does your family worry about paying for your home or becoming homeless? (Household - for ages 0-17 years) Not on file 1 Are you homeless or worried that you might be in the future? No 08/15/2024 Are you (or your family) juan eless or worried that you might be in the future? (Household - for ages 0-17 years) Not on file Food Insecurity Answer Date Recorded Do you need food for this week? No 08/15/2024 Are you able to get enough f ood for your family? (Household - for ages 0-17 years) Not on file 08/15/2024 Does your family need food t his week? (Household - for ages 0-17 years) Not on file 08/15/2024 Do you always have enough fo od for your family? (Household - for ages 0-17 years) Not on file 08/15/2024 Sex and Gender Information Value Date Recorded Sex Assigned at Not on file Legal Sex Male 7:09 AM EST Gender Identity Not on file Sexual Orientation Straight 09/01/2021 9: 34 AM EST Occupation Industry Job Start Date Job End Date Student Not on file Not on file Not on file documented as of this encounter Last Filed Vital Signs Vital Sign Reading Time Taken Comments Blood Pressure 130/70 09/06/2024 7:31 AM EST Pulse 106 09/06/2024 7:31 AM EST Temperature - - Respiratory Rate - - Oxygen Saturation 98% 09/06/2024 7:31 AM EST Inhaled Oxygen Concentration - - Weight 150.4 kg (331 lb 9.6 oz) 09/06/2024 7:31 AM EST Height 188 cm (6' 2") 09/06/2024 7:31 AM EST Body Mass Index 42.57 09/06/2024 7:31 AM EST documented in this encounter Functional Status * Are you deaf or do you have serious difficulty hearing? Answer Date of Assessment Author No 04/10/2024 9:27 PM Alicia Lazaro RN * Are you blind or do you have serious difficulty seeing, even when wearing glasses? Answer Date of Assessment Author No 04/10/2024 9:27 PM Alicia Lazaro RN * Do you have serious difficulty walking or climbing stairs? (5 years old or older) Answer Date of Assessment Author Yes 04/10/2024 9:27 PM Alicia Lazaro RN * Do you have difficulty dressing or bathing? (5 years old or older) Answer Date of Assessment Author Yes 04/10/2024 9:27 PM Alicia Lazaro RN * Because of a physical, mental, or emotional condition, do you have difficulty doing errands alone such as visiting a doctors office or shopping? (15 years old or older) Answer Date of Assessment Author Yes 04/10/2024 9:27 PM Alicia Lazaro RN documented as of this encounter Mental Status * Because of a physical, mental, or emotional condition, do you have serious difficulty concentrating, remembering, or making decisions? (5 years old or older) Answer Entry Date Author No 04/10/2024 9:27 PM Alicia Lazaro RN documented in this encounter Patient Instructions * Patient Instructions* Elaina Mendoza CRNP - 09/06/2024 8:07 AM EST Discussed smoking cessation and increased cardiovascular risks including but not limited to CVA, AMI, DVT/PE, Cancers, and osteoporosis; some of which can be fatal. For smoking cessation support please call #[phone]. Quitlines offer evidence-based support--like counseling, referrals to local programs, and free medication--to people who want to quit tobacco. Recommendations: Today's goals outlined in RED below Keep a food log (use genoveva My Fitness Pal or Lose It!, MyNetDiary) Start a daily multivitamin High protein, lower carb. Focus on protein goal protein of 60-90 g/day. (If not on protein restrictions for another disease process) Decrease carbohydrate intake and increase proportions of protein:carbs in every meal Review myplate method with patient https://www.myplate.gov/ At meals eat Protein 1st, vegetables 2nd and starch last Drink at least 64 oz (2 liters) of water daily. SLOWLY add fiber to your diet aim for goal of at least 25 gms per day. Some foods high in fiber include raspberries, pears with skin, apple with skin, yogurt, green beans, beans, spinach, oranges, flaxseed, oatmeal, prunes, kiwi. See attached link for foods and additional education https://[email or web address] [facility].org/ncal/Images/354066141%[email or web address]_[email or web address].pdf You may need to add daily metamucil, bene-fiber or similar products. Don't skip meals. Eat breakfast within 1 hour of waking up. Choose whole, natural foods (fruits, vegetables, lean proteins, & healthy fats). Avoid rice, pasta, bread, potato, processed/refined foods & sugary foods/beverages Replace carb and fat with a protein source in each meal (use genoveva Fit Men Cook) Snacks should be around 100-200 calories between meals. Increase vegetables to at least 3 servings daily and fruits 1 serving daily. Physical activity: Start slow with a goal you can achieve 2-3 times a week 10-20 minutes at a time.Gradually increase to Goal of 30-45 minutes of exercise 5-7 times a week. (can be broken up into 10min intervals throughout the day if needed) & strength training 2-3 days a week (phone genoveva: "Home Workout", Search YouTube videos for age appropriate workout.) Increase physical activity--taking stairs, parking farther away, getting up if sitting for more than 40 minutes Aim for 1000 steps a day Yoga with Amelia - Yoga with playlists for beginners and people with disabilities "Lazy Girl Workout" - search for that and various channels have these seated, lying down, sitting exercises. Zoila Justiz, GrowWithJo, etc. Be mindful of eating; chew each bite 20 times before swallowing. Eat slowly 20- 30 minutes per meal. Diet changes should be seen a new way of eating for life rather than a "diet" to lose weight Try these alternative food options: Protein shakes- Premier, Pure protein, Fairlife (30g or 42g protein), Iconic Lactose free protein shakes- Fairlife, Ripple, Iconic, Beckman Protein bars- Quest, Pure protein Ice cream- Vahe's, Yasso, Enlightened, Halo Top Coffee Creamer- Super Creamer, [place] Farms BetterHalf Unsweetened, Silk Thousandsticks Creamer Chips- Quest protein chips, Cheese crisps, wild chips Bread- 647 wheat, Protein Keto bread, whole wheat angel bread, low carb/high protein wraps Pasta- Chickpea pasta, Pasta zero or similar Rice- Cauliflower rice, quinoa, brown rice Fruits- berries, cantaloupe, peaches, apples, oranges-try to avoid or limit bananas and grapes Yogurt- Ratio (25g protein), Skyr, Two good, Chobani 60 sharon or 100 sharon, Oikos triple zero Sugar alternatives- Stevia, Monk fruit, Swerve documented in this encounter Progress Notes * Elaina Mendoza CRNP - 09/06/2024 7:40 AM EST [facility] CONSULTATION Referring Physician: Brook Steiner DO PCP: Velasquez Valencia MD Source of information: Patient Available records reviewed: Recent provider visits, Imaging, and Labs Reason for Referral: Weight Management. Bry Akhtar Jr. is a 48 year old patient who presents to the [facility] for further recommendations and has the following medical conditions: Patient Active Problem List Diagnosis Morbid obesity [...] DM type 2 causing vascular disease (HCC) Chronic respiratory failure with hypercapnia (HCC) Lumbar disc herniation Obstructive sleep apnea Restrictive lung disease secondary to obesity COPD, moderate (HCC) Cortical age-related cataract, right eye Constipation History of diabetic ulcer of foot History of pancreatitis Hx of BKA, left (HCC) Chest pain, non-cardiac Well adult exam HPI: Accompanied by Nadir Olivares Bry Akhtar Jr. has a BMI of 42.57 and suffers from Class 3 obesity. At today's initial consultation, patient would like to receive counseling regarding healthy diet and lifestyle interventions that can make to help with abnormal weight gain. Bry Akhtar Jr. is also open to the prospect of medical management for the treatment of obesity. Abnormal weight gain started: weight slow progression but increased after after left BKA 02/2024 In the past, patient has tried conservative measures to lose weight. Previous Weight Management Interventions: The patient has tried weight loss in the past without significant longterm success. Previous interventions: Self-directed. The patient denies any past pharmacotherapy for weight loss . Weight history: Highest Body Weight: Is 351 pounds in 2023. Wt Readings from Last 8 Encounters: 09/06/24 (!) 150.4 kg (331 lb 9.6 oz) 08/18/24 (!) 139.3 kg (307 lb 3.2 oz) 08/02/24 (!) 156 kg (344 lb) 07/31/24 (!) 156.2 kg (344 lb 6.4 oz) 07/19/24 (!) 159.4 kg (351 lb 6.4 oz) 07/04/24 (!) 148.3 kg (327 lb) 06/20/24 (!) 147.8 kg (325 lb 12.8 oz) 05/09/24 (!) 147.4 kg (325 lb) Current Diet: Describes typical diet history/24 hr recall Only eats once a day 10am-sandwich Snacks: bedtime kristel cake pies, ice cream, cookies Drinks: water, gatorade, cold coffee Restaurant meals: several times a week Activity: ADL s/p BKA w/c use currently Social History: Alcohol: None Tobacco Use: Yes, smokes 1 pack per day Drug Use: No 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 No mold. 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 (Adult - for ages 18 years and over): No Does your family have trouble paying for medicine? (Household - for ages 0-17 years): Not on file Food Insecurity: No Food Insecurity (08/15/2024) Food Insecurity Do you need food for [...] on file Transportation Needs: No Transportation Needs (08/15/2024) Transportation Needs Do you have trouble getting [...] Not on file Social Connections: Socially Integrated (08/15/2024) Social Connections How often do you feel lonely or isolated from those around you? (Adult - for ages 18 years and over): Never Housing Stability: Low Risk (08/15/2024) Housing Stability Do you currently live in a alf or have no steady place to sleep [...] - for ages0-17 years): Not on file 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 Current use of insulin ([facility]) 09/13/2017 DDD (degenerative disc disease), cervical 07/12/2019 Diabetes mellitus type 2, insulin dependent ([facility]) 07/05/2017 Diabetic polyneuropathy associated with type 2 diabetes mellitus ([facility]) 07/24/2016 Displacement of lumbar intervertebral disc without myelopathy DM type 2, goal: symptom mgmt ([facility]) 09/13/2017 DM type 2, not at goal ([facility]) Dyslipidemia, goal LDL below 70 07/24/2016 Gastroesophageal reflux disease without esophagitis 05/07/2020 Gastroparesis 08/27/2015 GERD (gastroesophageal reflux disease) History of DVT (deep vein thrombosis) 04/19/2019 HTN, goal below 140/90 12/23/2015 Per HTN Protocol #27. HTN, goal: symptom mgmt only 09/13/2017 IBS (irritable bowel syndrome) 08/27/2015 Intellectual disability 10/25/2019 Major depressive disorder, recurrent, severe without psychotic features ([facility]) 12/22/2016 Obesity, Class II, BMI 35-39.9, isolated (see actual BMI) 04/19/2019 OTHER osseochondrosis ankle Primary localized osteoarthrosis, lower leg Sleep apnea, obstructive Tobacco use disorder 12/22/2016 Type 2 diabetes mellitus with hemoglobin A1c goal of less than 8.0% ([facility]) 07/05/2017 Past Surgical History: Procedure Laterality Date JOANOTOMAS,W/ROTATOR CUFF Right 12/01/2019 ARTHROSCOPY SHOULDER ROTATOR CUFF performed by Judith Condon DO at [facility] COLONOSCOPY, DIAGNOSTIC (RECTUM) 04/18/2015 adenomatous polyp, repeat 5 yrs/[facility] COLONOSCOPY, DIAGNOSTIC (RECTUM) 04/15/2023 poor prep, repeat / [facility] COLONOSCOPY, DIAGNOSTIC (RECTUM) N/A 02/22/2024 normal/recall 5 years/COLONOSCOPY FLEXIBLE PROXIMAL DIAGNOSTIC performed by Mracela Del Valle MD at OR [facility] EGD, FLEXIBLE, DIAGNOSTIC 10/17/2014 mild-mod inflammation, repeat 1-2 mo/[facility] EGD, FLEXIBLE, DIAGNOSTIC 04/17/2015 normal bx/inpt [facility] EGD, FLEXIBLE, DIAGNOSTIC 05/08/2019 reflux esophagitis, gastritis, duodenitis, repeat 6 wks / [facility] EGD, FLEXIBLE, DIAGNOSTIC 08/18/2019 normal-EGD/[place] EGD, FLEXIBLE, DIAGNOSTIC N/A 05/02/2020 biopsies normal/EGD EGD, FLEXIBLE, DIAGNOSTIC N/A 02/22/2024 antral gastritis/biopsies normal/ESOPHAGOGASTRODUODENOSCOPY (EGD), FLEXIBLE, TRANSORAL, DIAGNOSTIC performed by Marcela Del Valle MD at OR [facility] EGD, FLEXIBLE, DIAGNOSTIC N/A 08/02/2024 ESOPHAGOGASTRODUODENOSCOPY (EGD), FLEXIBLE, TRANSORAL, DIAGNOSTIC performed by Belen Jones DOat OR [facility] INJECT DX/THER SUBSTANCE INTERLAMINAR CERVICAL/THORACIC W IMAGE GUIDE 08/17/2019 INJECTION SPINE LUMBAR CERVICAL OR THORACIC performed by Dario Nails DO at OR [facility] KNEE ARTHROSCOPY, DIAGNOSTIC l knee REMOVAL OF TONSILS, UNDER AGE 10 SHOULDER ARTHROSCOPY, BICEPS TENODESIS Right 12/01/2019 ARTHROSCOPY SHOULDER BICEP TENODESIS performed by Judith Condon DO at OR [facility] SHOULDER ARTHROSCOPY/DECOMPRESSION Right 12/01/2019 ARTHROSCOPY SHOULDER SUBACROMIAL DECOMPRESSION performed by Judith Condon DO at OR [facility] Current Outpatient Medications Medication Sig Dispense Refill Toujeo SoloStar 300 UNIT/ML Subcutaneous Solution Pen-injector (Insulin Glargine (1 Unit Dial)) Inject 40 units twice daily- this replaces lantus (Patient taking differently: Inject 48 units twice daily- this replaces lantus) 54 mL 4 BD Pen Needle Short U/F 31G X 8 MM (Insulin Pen Needle) Use to inject insulin 5 times daily 500 Each 3 Insulin Aspart FlexPen 100 UNIT/ML Subcutaneous Solution Pen-injector Inject 32 units with breakfast 22 units with lunch and 22 units with supper plus CF of 1:12 over 150. Max daily dose of 115 [id number] mL 4 OneTouch Verio In Vitro Strip (Glucose Blood) Use to check blood sugar once daily as needed 100 Strip 0 OneTouch Delica Lancets 33G Use to check blood sugars once daily as needed 100 Each 0 Dexcom G6 Sensor Use as directed every 10 days. 9 Each 5 Dexcom G6 Transmitter Use as directed. Change every 90 days 1 Each 5 Insulin Aspart 100 UNIT/ML Injection Solution (NovoLOG) Inject up to 120 units daily using Omnipod 5 120 mL 4 Haloperidol 1 MG Oral Tablet (Haldol) Omeprazole 40 MG Oral Capsule Delayed Release (PriLOSEC) Take 1 Capsule by mouth in the morning. 90Capsule 3 Polyethylene Glycol 3350 17 GM Oral Packet (Miralax) Mix 1 Packet in 4 to 8 ounces of any beverage and drink by mouth in the morning. (Patient not taking: Reported on 09/06/2024) 14 Each 0 Ondansetron HCl 4 MG Oral Tablet Take 1 Tablet by mouth every 8 hours as needed for Nausea. (Patient not taking: Reported on 09/06/2024) 20 Tablet 0 Polyethylene Glycol 3350 17 GM/SCOOP Oral Powder (Miralax) Take 1 scoop daily in 8 ounces of water.(Patient not taking: Reported on 09/06/2024) 510 g 5 Omnipod 5 [id number] Intro Gen 5 Kit Use as directed- bring this to visit on Sep 18 1 Kit 0 Omnipod 5 [id number] Pods Gen 5 Use as directed. Change pod every 2 days 45 Each 3 Spiriva Respimat 2.5 MCG/ACT Inhalation Aerosol Solution (Patient not taking: Reported on 09/06/2024) No current facility-administered medications for this visit. Review of patient's allergies indicates: Allergen Reactions Nsaids Gastric problems Other Reaction(s): gastroparesis, kidney problems, use with caution : hx esophagus damage Actos [Pioglitazone] Ceclor [Cefaclor] Unknown As child Jardiance [Empagliflozin] Other (Please comment) DKA with hospitalization Review of Systems: Constitutional: (+) weight change and (+) weakness Eyes: Glaucoma No Retinopathy:no Cardiovascular Symptoms: No chest pain, No shortness of breath, No dyspnea on exertion, No orthopnea, No edema, Nopalpitations, and No syncope Hypertension: Yes, 0 medications BP Readings from Last 5 Encounters: 09/06/24 130/70 08/22/24 132/70 08/18/24 142/82 08/07/24 158/80 08/03/24 147/52 CAD/CHF/arrhythmias/valve disease: No Pulmonary Asthma: No COPD: Yes, not on oxygen Nursing Notes: Tanesha Stern, TECH 09/06/24 0735 Signed Neck circumference 21 inches Sleep Apnea: yes, not using CPAP Endocrine Patient denies personal or family history of medullary thyroid carcinoma. Patient denies personal or family history of multiple endocrine neoplasia syndrome. Insulin Resistance: Yes Diabetes: Yes Both Insulin and Noninsulin medications Lab Results Component Value Date/Time HEMOGLOBIN A1C - [facility] 8.6 (H) 05/09/2024 01:59 PM HEMOGLOBIN A1C - [facility] 10.2 (H) 01/14/2024 10:59 AM HEMOGLOBIN A1C - [facility] 10.1 (H) 12/13/2023 04:39 AM HEMOGLOBIN A1C - [facility] 9.2 (H) 09/16/2020 01:55 PM HEMOGLOBIN A1C - [facility] 9.6 (H) 06/04/2020 09:44 AM HEMOGLOBIN A1C - [facility] 6.9 (H) 11/25/2019 08:53 AM Other Endocrine abnormalities: NONE Lab Results Component Value Date/Time GLUCOSE - [facility] 339 (H) 08/02/2024 01:49 PM GLUCOSE - [facility] 290 (A) 07/29/2024 12:00 AM GLUCOSE - [facility] 320 (H) 07/19/2024 12:39 PM GLUCOSE - [facility] 182 (H) 05/09/2024 01:59 PM GLUCOSE - [facility] 393 (A) 02/07/2024 12:00 AM GLUCOSE - [facility] 339 (A) 02/05/2024 12:00 AM GLUCOSE - [facility] 153 (H) 11/25/2019 08:53 AM GLUCOSE - [facility] 106 09/20/2017 06:15 AM GLUCOSE - [facility] 165 (H) 09/13/2017 06:19 AM GLUCOSE METER POCT - [facility] 212 (H) 12/01/2019 12:27 PM GLUCOSE METER POCT - [facility] 170 (H) 12/01/2019 10:24 AM GLUCOSE METER POCT - [facility] 176 (H) 12/01/2019 07:59 AM GLUCOSE POCT - [facility] 233 (H) 08/02/2024 09:41 AM GLUCOSE POCT - [facility] 271 (H) 08/02/2024 08:18 AM GLUCOSE POCT - [facility] 147 (H) 04/10/2024 09:50 PM GLUCOSE POCT - [facility] 402 (A) 08/28/2010 12:00 AM GLUCOSE, URINE - [facility] 250 (A) 04/10/2024 07:06 PM GLUCOSE, URINE - [facility] 500 (A) 12/22/2023 12:37 PM GLUCOSE, URINE - [facility] >=1000 (A) 12/12/2023 04:47 PM GLUCOSE, URINE - [facility] +2 09/02/2009 12:00 AM GLUCOSE, URINE - [facility] n 06/03/2007 12:00 AM GLUCOSE, URINE - [facility] +3 11/26/2005 03:22 PM Dyslipidemia: Yes, not on treatment Results for orders placed or performed during the hospital encounter of 12/12/23 LIPID PANEL WITHOUT DIRECT LDL Result Value Ref Range Triglycerides 240 (H) <=174 mg/dL Cholesterol 126 <200 mg/dL HDL Cholesterol 30 (L) >39 mg/dL Non-HDL Cholesterol 96 <=159 mg/dL LDL Cholesterol 48 <=129 mg/dL Results for orders placed or performed during the hospital encounter of 04/10/24 LIPID PANEL WITH DIRECT LDL IF TG IS HIGH Result Value Ref Range Triglycerides 311 (H) <=174 mg/dL Cholesterol 131 <200 mg/dL HDL Cholesterol 32 (L) >39 mg/dL Non-HDL Cholesterol 99 <=159 mg/dL GI Symptoms: No abdominal pain, No change in bowel habits, No significant change in appetite, No nausea, vomiting, diarrhea, or constipation, No hematemesis, No blood in stools or black tarry stools, Noabdominal bloating or early satiety, and No dysphagia GERD: Yes: Requiring medications: Yes Fatty Liver: no Pancreatitis: no GB disease: no Gastroparesis: yes-follows w/GI, pending endoscopic Renal History of nephrolithiasis: No. 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 Functional Status: Requires wheelchair Reproductive Polycystic ovarian syndrome: N/A Menstrual Cycle: N/A Control: N/A Neuro Stroke: No Seizures: No Pseudotumor: No Headaches chronically: No Psychosocial Adjustment Issues: No, no Issues with body image Depression: History of hospitalization 10 yrs ago Stable Not taking medication Other Confirmed Mental Health Diagnosis: anxiety/panic disorder OBJECTIVE: BP 130/70 | Pulse 106 | Ht 1.88 m (6' 2") | Wt (!) 150.4 kg (331 lb 9.6 oz) | SpO2 98% | BMI 42.57 kg/m | BSA 2.8 m General: Well-developed, non-dysmorphic, obese, comfortable, NAD HEENT: Normocephalic/atraumatic. Sclera non-icteric, MMM, Neck: No thyromegaly or tracheal deviation. Lungs: breathing comfortably; no conversational dyspnea Cardiovascular: extremities well-perfused Extremities: full range of motion. Skin: no evidence of bleeding or bruising, no edema, and no acanthosis nigricans noted on neck or excessive skin tags. Psych: normal mood and affect Neuro: no gross motor deficits, speech normal pitch and speed, AAOx3 ASSESSMENT AND PLAN: Bry Akhtar Jr. is a 48 year old patient who presents for further weight management guidance. Abnormal weight gain /Body mass index is 42.57 kg/m. / Morbid obesity . Explained to the patient that they can lose on average ~5-10% of current weight with medical management, ~10-15% with medication use, and ~40-60% with bariatric surgery. Discussed weight management options and the patient would like to proceed with conservative, medication, and surgical weight management. has decided to pursue bariatric surgery : Given the patient's age, degree of obesity and multiple medical problems outlined above, I do believe that bariatric surgery may prove beneficial. Discussed with patient the risks and benefits of surgery. The patient is interested in bariatric surgery and will begin our presurgical process. Enroll in bariatric surgery program. Discussed details of program with patient in clinic today, including (but not limited to) program fee; attending 2 support groups and 3 educational classes; Behavioral Medicine evaluation; Server Cashier evaluation; medical evaluation; monthly visits; and 10% weight loss goal. Barriers are consistency, edentulous, w/c bound r/t BKA, only eating once a day, high carb/sugary snacks, uncontrolled DM. Motivators are feeling better, avoiding/reducing comorbid conditions, Patient goals were discussed in detail at visit. Goals: Keep a food log (use genoveva Contorion Pal or Lose It!, [employer]) Start a daily multivitamin High protein, lower carb. Focus on protein goal protein of 60-90 g/day. Don't skip meals. Eat breakfast within 1 hour of waking up. Physical activity: Start slow with a goal you can achieve 2-3 times a week 10-20 minutes at a time.Gradually increase to Goal of 30-45 minutes of exercise 5-7 times a week. (can be broken up into 10min intervals throughout the day if needed) & strength training 2-3 days a week (phone genoveva: "Home Workout", Search YouTube videos for age appropriate workout.) Increase physical activity--taking stairs, parking farther away, getting up if sitting for more than 40 minutes Aim for 5000 steps a day Type 2 diabetes mellitus with hemoglobin A1c goal of less than 7.0% (HCC) Not at goal, follows w/PCP and MTM-awaiting omnipod Aware bariatric surgical goal < 8.0% Avoid GLP1 r/t gastroparesis workup Hemoglobin AIC Results: Lab Results Component Value Date/Time HEMOGLOBIN A1C - [facility] 8.6 (H) 05/09/2024 01:59 PM HEMOGLOBIN A1C - [facility] 10.2 (H) 01/14/2024 10:59 AM HEMOGLOBIN A1C - [facility] 10.1 (H) 12/13/2023 04:39 AM HEMOGLOBIN A1C - [facility] 9.2 (H) 09/16/2020 01:55 PM HEMOGLOBIN A1C - [facility] 9.6 (H) 06/04/2020 09:44 AM HEMOGLOBIN A1C - [facility] 6.9 (H) 11/25/2019 08:53 AM Hyperlipidemia with target LDL less than 70 Expect improvement with weight loss COPD, moderate (HCC) Stable w/o inhalers Obstructive sleep apnea Non-complaint Re-refer to sleep med DDD (degenerative disc disease), cervical Limits activity Hx of BKA, left (HCC) Fbslpnq-Pnmtz-Ddssi disease W/c bound-limits activity Following w/PT Tobacco use disorder Aware of full cessation prior to surgery [id number] Gastroparesis Ongoing workup w/GI Pending endoscopic US Avoid GLP1 Essential hypertension with goal blood pressure less than 140/90 Stable w/o meds Expect improvement with weight loss Depression with anxiety Stable w/o meds. H/o admission in past. Patient currently denies SI/HI, AVH, paranoid delusions, orsubstance use. Advised to f/u with PCP for worsening of depression symptoms and instructed to report to ED and/or call crisis # [phone] or 911 with SI/HI Edentulous Barrier to bariatric surgery Plans to follow dentist for new denture plates Time spent with patient 60 minutes. More than 50% of my time spent with patient providing counseling about the benefits of weight loss, about the patient's nutritional status, detailed explanations about calorie count, types of nutrients to choose, and composition of the meals. Reviewed and discussed weight, weight trends and pertinent labs and test results. Motivational interview provided in order to prepare the patient to achieve future goals. The patient agreed to try all the plan discussed and return in one month. Patient was instructed to message or call in the meantime with any further concerns or questions. They were encouraged to call or send a patient portal message in the meantime with any questions orconcerns prior to their next clinic visit. Dr. Julian. available in clinic for consultation as needed. Elaina [facility] [place] [address] [address] [facility] [address] P [phone] | F [phone] documented in this encounter Nursing Notes * Tanesha Stern, EZ - 09/06/2024 7:35 AM EST Neck circumference 21 inches documented in this encounter Plan of Treatment Upcoming Encounters Date Type Department Care Team (Latest Contact Info) Description 09/18/2024 10:40 AM EST Office Visit Pharmacy, [place] [address] [place] [address] [facility] [address] [place] [facility] [place] [address] 10/26/2024 11:00 AM EST Hospital Encounter [facility] Endoscopy [address], [facility] [address], [address] [place] [address] Bipin Moss MD [address] [place] [address] 10/26/2024 11:00 AM EST - 10/26/2024 12:30 PM EST Surgery [facility] Endoscopy [address], [facility] [address], [address] [place] [address] Bipin Moss MD [address] [place] [address] ESOPHAGOGASTRODUODENOSCOPY (EGD), FLEXIBLE, TRANSORAL, DIAGNOSTIC 11/22/2024 8:40 AM EST Office Visit Nutrition & Weight Management, [facility] [address] [place] [address] Thao Lemus PA-C [address] [place] [phone] 11/22/2024 9:30 AM EST Nurse Only Nutrition & Weight Management, [facility] [address] [place] [phone] [place], Nutrition Ed Class 1 [facility] [address] [place] [phone] 11/23/2024 8:00 AM EST Office Visit [facility] [address] [facility] [place] [address] Velasquez Valencia MD [address] [facility] [place] [phone] 07/09/2025 10:00 AM EDT Office Visit Pulmonary Medicine, [facility] [address] [facility] [place] [address] Vishal Wallace MD [address] [place] [phone] Scheduled Procedures Name Priority Associated Diagnoses Date/Ti me ESOPHAGOGASTRODUODENOSCOPY ( EGD), FLEXIBLE, TRANSORAL, DIAGNOSTIC Pain of upper abdomen 10/26/2024 11:00 AM EST ESOPHAGOGASTRODUODENOSCOPY ( EGD), FLEXIBLE, TRANSORAL, ENDOSCOPIC ULTRASOUND Pain of upper abdomen 10/26/2024 11:00 AM EST COLONOSCOPY FLEXIBLE PROXIMA L DIAGNOSTIC Recall Screening for colon cancer Scheduled Referrals Name Type Priority Associated Diagnoses Orde r Schedule SLEEP MEDICINE REFERRAL OP Referral Within 30 days (routine) Abnormal weight gain Class 3 severe obesity due to excess calories with serious comorbidity and body mass index (BMI) of 40.0 to 44.9 in adult (HCC) COPD, moderate (HCC) Obstructive sleep apnea Ordered: 09/06/2024 Health Maintenance Due Date Last Done Comments HIV Screening 1988 Hepatitis C Screening 1991 Hepatitis B Vaccine (1 of 3 - 19+ 3-dose series) 1992 Cologuard 2018 Fecal Occult Blood Test 2018 Sigmoidoscopy 2018 Zoster Vaccines (1 of 2) 2023 COVID-19 Vaccine ( season) 2024 10/21/2021, 03/01/2021, 02/07/2021 Diabetic Foot Exam 07/09/2024 07/09/2023, 0 03/07/2021, 11/27/2019, Additional history exists Diabetic Eye Exam 07/28/2024 07/28/2023, , 03/07/2021, Additional history exists HbA1c 11/09/2024 05/09/2024, 02/16, 01/14/2024, Additional history exists Albumin/Creatinine Ratio 01/13/2025 024, 01/05/2023, 09/01/2021, Additional history exists Depression Screening 04/19/2025 04/19/2024 DISCUSS TOBACCO CESSATION (REFER TO SMARTSET #3291) 07/19/2025 07/19/2024, 10/16/2022 GFR 08/02/2025 08/02/2024, 07/18, 07/19/2024, Additional history exists O2 ASSESSMENT COMPLETED IN PAST YEAR FOR COPD 08/02/2025 08/02/2024 DTap/Tdap Vaccines (2 - Td or Tdap) [...] Completed 07/04/2024, 07/09/2023, 10/16/2022, Additional history exists Alpha-1 Antitrypsin Completed 07/19/2024 HPV (Gardasil) Vaccine Aged Out No lo nger eligible based on patient's age to complete this topic MENINGOCOCCAL (MENACTRA/MENVEO) Aged Out No longer eligible based on patient's age to complete this topic documented as of this encounter Medical Devices Implanted Type Area Mobile Home Mechanic Device Identifier Shelf Expiration Date Model / Serial / Lot Suture Niles Dbl Load 4.75mm - [id number] Implanted:Qty: 1 on 12/01/2019 by Judith Condon DO at OR [facility] Right: Shoulder [employer] 07/17/2021 [id number] -2 / / [id number] Suture Niles Dbl Load 5.5mm - [id number] Implanted:Qty: 1 on 12/01/2019 by Judith Condon DO at OR [facility] Right: Shoulder [employer] 09/16/2021 [id number] -2 / / [id number] documented as of this encounter Visit Diagnoses Diagnosis Abnormal weight gain- Primary Class 3 severe obesity due to excess calories with serious comorbidity and body mass index (BMI) of 40.0 to 44.9 in adult ([facility]) Type 2 diabetes mellitus with hemoglobin A1c goal of less than 7.0% ([facility]) Hyperlipidemia with target LDL less than 70 Other and unspecified hyperlipidemia COPD, moderate ([facility]) Chronic airway obstruction, not elsewhere classified Obstructive sleep apnea Obstructive sleep apnea (adult) (pediatric) DDD (degenerative disc disease), cervical Degeneration of cervical intervertebral disc Hx of BKA, left ([facility]) Tijddvs-Zfszk-Xhett disease Peroneal muscular atrophy Tobacco use disorder Gastroparesis Essential hypertension with goal blood pressure less than 140/90 Depression with anxiety Dysthymic disorder Edentulous Anodontia Pain of upper abdomen Abdominal pain, other specified site documented in this encounter Advance Directives * Full Code (Latest Code Status on File) Date Activated Date Inactivated Comments 08/02/2024 9:00 AM 08/02/2024 12:43 PM This orde r reflects the patients wishes and were consensually agreed upon. Question Answer Comments Discussion of Advance Direct chloé occurred with: Not Discussed due to patient's condition * Full Code Date Activated Date Inactivated Comments 08/02/2024 8:36 AM 08/02/2024 8:59 AM This order reflects the patients wishes and were consensually agreed upon. Question Answer Comments Discussion of Advance Direct chloé occurred with: Not Discussed due to patient's condition * Full Code Date Activated Date Inactivated Comments 04/10/2024 8:31 [...] Discussion of Advance Directives occurred with: Patient Care Teams Junior Paralegal Relationship Specialty Start Date End Date Velasquez Valencia MD [address] [place] [address] PCP - General Family Medicine 09/09/22 documented as of this encounter
--- OUTSIDE RECORDS SUMMARY | 2024-09-15 10:59 | External Medical Summary | Summary of Care ---
Author Name Unknown Organization [facility] Address [address] [place] [address] Phone [phone] Care Team Providers Care Motion Picture Set Up Worker Name Role Phone Velasquez Valencia MD Primary Care Provider [phone]- [phone] Reason for Referral * Evaluate & Treat - Unlimited Visits (Within 30 days (routine)) - Authorized Specialty Diagnoses / Procedures Referred By Bismark brown Referred To Contact Gastroenterology Diagnoses Gastroparesis Velasquez Valencia MD [address] [place] [address] Phone: tel: fax: Referral ID Status Reason Start Date Expiration Date Visits Requested Visits Authorized [id number] Authorized Specialty Services Required 08/18/[phone] Question Answer Referral Priority Within 30 days (routine) Where should this appointment be scheduled? [facility] For what condition is the patient being referred? All Gastro Conditions Comments gastroparesis Reason for Visit * Reason Comments Follow Up 3 month follow up. Ashley young stomach has improved but still has some pain since last visit and his bowel movements haven't improved at all. Pt needs referral sent to dr Prasanth Fernandez in gastro. Encounter Details Date Type Department Care Team (Late st Contact Info) Description 08/18/2024 11:00 AM EDT Office Visit [address] [address] Velasquez Valencia MD [address] [place] [address] Gastroparesis*; Type 2 diabetes mellitus with hemoglobin A1c goal of less than 7.0% ([facility]); COPD, moderate ([facility]); Obstructive sleep apnea; Constipation, unspecified constipation type; Gastroesophageal reflux disease without esophagitis; Morbid obesity ([facility]); Hx of BKA, left ([facility]) Allergies Active Allergy Reactions Criticality Noted Date Comments Pioglitazone 07/19/2024 Cefaclor Unknown 07/26/2018 As child Empagliflozin Other (Please comment) 05/16/2021 DKA with hospitalization Nsaids High 04/19/2019 Gastric problems Other Reaction(s): gastroparesis, kidney problems, use with caution : hx esophagus damage documented as of this encounter (statuses as of 09/04/2024) Medications Polyethylene Glycol 3350 17 GM Oral Packet (Miralax) Mix 1 Packet in 4 to 8 ounces of any beverage and drink by mouth in the morning. 14 Each 4 11:40 AM EST 024 Active Ondansetron HCl 4 MG Oral Tablet Take 1 Tablet by mouth every 8 hours as needed for Nausea. 20 Tablet 4 11:40 AM EST 024 Active Toujeo SoloStar 300 UNIT/ML Subcutaneous Solution Pen-injector (Insulin Glargine (1 Unit Dial))Indicatio ns:Type 2 diabetes mellitus with hemoglobin A1c goal of less than 7.0% ([facility]) Inject 40 units twice daily- this replaces lantus 54 mL 4 4 12:19 PM EDT 024 Active Additional Information Patient taking differently: Inject 48 units twice daily- this replaces lantus, Reported on 08/18/2024 BD Pen Needle Short U/F 31G X 8 MM (Insulin Pen Needle)Indicati ons:Type 2 diabetes mellitus with hemoglobin A1c goal of less than 7.0% (HCC) Use to inject insulin 5 times daily 500 Each 3 4 8:17 AM EDT 04/03/2 024 Active Insulin Aspart FlexPen 100 UNIT/ML Subcutaneous Solution Pen-injectorInd ications:Type 2 diabetes mellitus with hemoglobin A1c goal of less than 7.0% (HCC) Inject 32 units with breakfast 22 units with lunch and 22 units with supper plus CF of 1:12 over 150. Max daily dose of 115 units 120 mL 4 4 10:04 AM EDT Active Polyethylene Glycol 3350 17 GM/SCOOP Oral Powder (Miralax) Take 1 scoop daily in 8 ounces of water. 510 g 5 Active OneTouch Verio In Vitro Strip (Glucose Blood)Indicatio ns:Type 2 diabetes mellitus with hemoglobin A1c goal of less than 7.0% (HCC) Use to check blood sugar once daily as needed 100 Strip 4 5:28 PM EDT 024 Active OneTouch Delica Lancets 33GIndications: Type 2 diabetes mellitus with hemoglobin A1c goal of less than 7.0% (HCC) Use to check blood sugars once daily as needed 100 Each 4 5:28 PM EDT 024 Active Dexcom G6 SensorIndicatio ns:Type 2 diabetes mellitus with hemoglobin A1c goal of less than 7.0% (HCC) Use as directed every 10 days. 9 Each 5 4 10:09 AM EDT 024 Active Dexcom G6 TransmitterIndi cations:Type 2 diabetes mellitus with hemoglobin A1c goal of less than 7.0% (HCC) Use as directed. Change every 90 days 1 Each 5 4 9:12 AM EDT 024 Active Omnipod 5 [id number] Intro Gen 5 KitIndications: Type 2 diabetes mellitus with hemoglobin A1c goal of less than 7.0% (HCC) Use as directed- bring this to visit on Sep 18 1 Kit 4 1:11 PM EST Active Omnipod 5 [id number] Pods Gen 5Indications:Ty pe 2 diabetes mellitus with hemoglobin A1c goal of less than 7.0% (HCC) Use as directed. Change pod every 2 days 45 Each 3 4 6:12 PM EDT 024 Active Insulin Aspart 100 UNIT/ML Injection Solution (NovoLOG)Indica tions:Type 2 diabetes mellitus with hemoglobin A1c goal of less than 7.0% (HCC) Inject up to 120 units daily using Omnipod 5 120 mL 4 4 3:39 PM EST Active Haloperidol 1 MG Oral Tablet (Haldol) Active Albuterol Sulfate HFA 108 (90 Base) MCG/ACT Inhalation Aerosol SolutionIndicat ions:RSV bronchitis inhale 2 puffs by mouth and INTO THE LUNGS every 6 hours if needed for cough shortness of breath or WITHDRAWAL SYMPTOMS 54 g 3 023 2023 Discontinued(M edication List Clean Up) Metamucil 0.52 GM Oral Capsule (Psyllium) Take 1 Capsule by mouth in the morning and 1 Capsule at noon and 1 Capsule before bedtime. 30 Capsule 024 2023 Discontinued(M edication List Clean Up) Spironolactone 25 MG Oral Tablet (Aldactone) Take 1 Tablet by mouth in the morning. 90 Tablet 3 024 2023 Discontinued Aspirin 81 MG Oral Tablet Delayed Release Take 1 Tablet by mouth in the morning. 90 Tablet 3 024 2023 Discontinued(M edication List Clean Up) Metoprolol Succinate ER 100 MG Oral Tablet Extended Release 24 Hour (toPROL XL)Indications: HTN, goal below 140/90 Take 1 tab by mouth twice per day 180 Tablet 3 024 2023 Discontinued(M edication List Clean Up) traMADol HCl 50 MG Oral Tablet (Ultram)Indicat ions:Abdominal pain, epigastric Take 1 Tablet by mouth every 6 hours as needed for Pain, Severe. 40 Tablet 024 2023 Discontinued(M edication List Clean Up) traMADol HCl 50 MG Oral Tablet (Ultram)Indicat ions:Abdominal pain, generalized,Pha ntom limb pain (HCC) Take 1 Tablet by mouth every 6 hours as needed for Pain, Severe. Take 1-2 tabs by mouth every 6 hours as needed for severe pain in want to do it due 8 it has been 80 Tablet 024 2023 Discontinued(M edication List Clean Up) Alum & Mag Hydroxide-Simet h 400-400-40 MG/5ML Oral Suspension (Mi-Acid II)Indications: Constipation, unspecified constipation type Take 15 ml every 6 hours as needed for constipation 355 mL 3 024 2023 Discontinued(M edication List Clean Up) Atorvastatin Calcium 20 MG Oral Tablet (Lipitor) Take 1 Tablet by mouth in the morning. 90 Tablet 3 024 2023 Discontinued(M edication List Clean Up) Gabapentin 100 MG Oral Capsule (Neurontin)Yanet cations:Neuropa thy TAKE 2 CAPSULES BY MOUTH EVERY 12 HOURS 120 Capsule 3 024 2023 Discontinued(M edication List Clean Up) oxyCODONE HCl 5 MG Oral Tablet (Oxy IR)Indications: Lumbar disc herniation Take 1 Tablet by mouth every 8 hours as needed for Pain, Severe. 20 Tablet 024 2023 Discontinued(M edication List Clean Up) metFORMIN HCl 500 MG Oral Tablet (Glucophage)Ind ications:Type 2 diabetes mellitus with hemoglobin A1c goal of less than 7.0% (HCC) Take 2 Tablets by mouth in the morning and 2 Tablets in the evening. 360 Tablet 3 4 5:32 PM EDT 2023 Discontinued(E nd of Procedure) Pantoprazole Sodium 40 MG Oral Tablet Delayed Release (Protonix) TAKE 1 TABLET BY MOUTH TWICE A DAY 180 Tablet 3 024 2023 Discontinued(M edication List Clean Up) Famotidine 20 MG Oral Tablet (Pepcid) TAKE ONE TABLET BY MOUTH NIGHTLY AT BEDTIME 90 Tablet 3 024 2023 Discontinued(M edication List Clean Up) Spiriva Respimat 2.5 MCG/ACT Inhalation Aerosol Solution (Tiotropium [place] Monohydrate) Inhale 2 Puffs by mouth in the morning. 1 Each 2 024 2023 Discontinued(M edication List Clean Up) Losartan Potassium 50 MG Oral Tablet (Cozaar) Take 1 Tablet by mouth in the morning and 1 Tablet before bedtime. 024 2023 Discontinued Terazosin HCl 1 MG Oral Capsule (Hytrin) Take 1 Capsule by mouth at bedtime. 024 2023 Discontinued Torsemide 10 MG Oral Tablet (Demadex)Indica tions:Acute on chronic diastolic heart failure (HCC) Take 2 tabs by mouth daily 180 Tablet 3 024 2023 Discontinued(M edication List Clean Up) Pioglitazone HCl 45 MG Oral Tablet (Actos) Take 1 Tablet by mouth in the morning. 2023 Discontinued(E nd of Procedure) documented as of this encounter (statuses as of 09/04/2024) Active Problems Problem Noted Date Diagnosed Date [...] as of this encounter (statuses as of 09/04/2024) Resolved Problems Problem Noted Date Diagnosed Date [...] as of this encounter (statuses as of 09/04/2024) Immunizations Name Administration Dates Next Due COVID-19 mRNA, LNP-s, No Pre serve, 2-Dose Series (PixelPlay) 10/21/2021,03/01/2021,02/07/2021 H1N1 2009 Influenza, IM 11/04/2009 Pneumococcal Conjugate Vacci ne, 20-valent ([id number]) 07/09/2023 Pneumococcal Polysaccharide PPV23 (Pneumovax) 11/03/2015,02/09/2006 Seasonal [...] Sign Reading Time Taken Comments Blood Pressure 142/82 08/18/2024 10:41 AM EDT Pulse 108 08/18/2024 10:41 AM EDT Temperature 36.5 C (97.7 F) 08/18/2024 1 0:41 AM EDT Respiratory Rate 16 08/18/2024 10:4 1 AM EDT Oxygen Saturation 93% 08/18/2024 10: 41 AM EDT Inhaled Oxygen Concentration - - Weight 139.3 kg (307 lb 3.2 oz) 024 10:41 AM EDT Height 188 cm (6' 2") 08/18/2024 10:41 AM EDT Body Mass Index 39.44 08/18/2024 10:41 AM EDT documented in this encounter Functional Status * Are you deaf or do you have serious difficulty hearing? Answer Date of Assessment Author No 04/10/2024 9:27 PM EDT Alicia Esteban RN * Are you blind or do you have serious difficulty seeing, even when wearing glasses? Answer Date of Assessment Author No 04/10/2024 9:27 PM EDT Alicia Esteban RN * Do you have serious difficulty walking or climbing stairs? (5 years old or older) Answer Date of Assessment Author Yes 04/10/2024 9:27 PM EDT Alicia Esteban RN * Do you have difficulty dressing or bathing? (5 years old or older) Answer Date of Assessment Author Yes 04/10/2024 9:27 PM EDT Alicia Esteban RN * Because of a physical, mental, [...] Entry Date Author No 04/10/2024 9:27 PM Tessa Lazaro RN documented in this encounter Progress Notes * Oesterling, Velasquez R, MD - 08/18/2024 10:58 AM EDT Subjective: Bry Akhtar Jr. is a 48 year old male here today for Chief Complaint Patient presents with Follow Up 3 month follow up. States stomach has improved but still has some pain since last visit and his bowel movements haven't improved at all. Pt needs referral sent to dr Prasanth Fernandez in gastro. Here for routine follow-up. Continues with issues with gastrointestinal symptoms which are felt to relate to gastroparesis. Having abdominal pain, bloating, reflux, constipation. Tried to have previous endoscopic ultrasound but still had food in his stomach so procedure had to be stopped. Patient reports that he had not eaten for 2-1/2 days prior to the procedure. Wonders what prep will be recommended given that occurred last time. Is not aware of being rescheduled for the procedure yet. 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 Current use of insulin ([facility]) 09/13/2017 DDD (degenerative disc disease), cervical 07/12/2019 Diabetes mellitus type 2, insulin dependent ([facility]) 07/05/2017 Diabetic polyneuropathy associated with type 2 diabetes mellitus ([facility]) 07/24/2016 Displacement of lumbar intervertebral disc without myelopathy DM type 2, goal: symptom mgmt ([facility]) 09/13/2017 DM type 2, not at goal ([facility]) Dyslipidemia, goal LDL below 70 07/24/2016 Gastroesophageal reflux disease without esophagitis 05/07/2020 Gastroparesis 08/27/2015 GERD (gastroesophageal reflux disease) History of DVT (deep vein thrombosis) 04/19/2019 HTN, goal below 140/90 12/23/2015 Per HTN Protocol #27. HTN, goal: symptom mgmt only 09/13/2017 IBS (irritable bowel syndrome) 08/27/2015 Intellectual disability 10/25/2019 Major depressive disorder, recurrent, severe without psychotic features (HCC) 12/22/2016 Obesity, Class II, BMI 35-39.9, isolated (see actual BMI) 04/19/2019 OTHER osseochondrosis ankle Primary localized osteoarthrosis, lower leg Sleep apnea, obstructive Tobacco use disorder 12/22/2016 Type 2 diabetes mellitus with hemoglobin A1c goal of less than 8.0% ([facility]) 07/05/2017 Past Surgical History: Procedure Laterality Date TOMAS HUTSON,W/ROTATOR CUFF Right 12/01/2019 ARTHROSCOPY SHOULDER ROTATOR CUFF performed by Judith Condon DO at OR [facility] COLONOSCOPY, DIAGNOSTIC (RECTUM) 04/18/2015 adenomatous polyp, repeat 5 yrs/[facility] COLONOSCOPY, DIAGNOSTIC (RECTUM) 04/15/2023 poor prep, repeat / [facility] COLONOSCOPY, DIAGNOSTIC (RECTUM) N/A 02/22/2024 normal/recall 5 years/COLONOSCOPY FLEXIBLE PROXIMAL DIAGNOSTIC performed by Marcela Del Valle MD at OR [facility] EGD, FLEXIBLE, DIAGNOSTIC 10/17/2014 mild-mod inflammation, repeat 1-2 mo/[facility] EGD, FLEXIBLE, DIAGNOSTIC 04/17/2015 normal bx/inpt [facility] EGD, FLEXIBLE, DIAGNOSTIC 05/08/2019 reflux esophagitis, gastritis, duodenitis, repeat 6 wks / [facility] EGD, FLEXIBLE, DIAGNOSTIC 08/18/2019 normal-EGD/[place] EGD, FLEXIBLE, DIAGNOSTIC N/A 05/02/2020 biopsies normal/[facility] EGD, FLEXIBLE, DIAGNOSTIC N/A 02/22/2024 antral gastritis/biopsies normal/ESOPHAGOGASTRODUODENOSCOPY (EGD), FLEXIBLE, TRANSORAL, DIAGNOSTIC performed by Marcela Del Valle MD at OR [facility] EGD, FLEXIBLE, DIAGNOSTIC N/A 08/02/2024 ESOPHAGOGASTRODUODENOSCOPY (EGD), FLEXIBLE, TRANSORAL, DIAGNOSTIC performed by Belen Jones DO OR [facility] INJECT DX/THER SUBSTANCE INTERLAMINAR CERVICAL/THORACIC W IMAGE GUIDE 08/17/2019 INJECTION SPINE LUMBAR CERVICAL OR THORACIC performed by Dario Nails DO at OR [facility] KNEE ARTHROSCOPY, DIAGNOSTIC l knee REMOVAL OF TONSILS, UNDER AGE 10 SHOULDER ARTHROSCOPY, BICEPS TENODESIS Right 12/01/2019 ARTHROSCOPY SHOULDER BICEP TENODESIS performed by Judith Condon DO at OR [facility] SHOULDER ARTHROSCOPY/DECOMPRESSION Right 12/01/2019 ARTHROSCOPY SHOULDER SUBACROMIAL DECOMPRESSION performed by Judith Condon DO at OR [facility] Review of patient's allergies indicates: Allergen Reactions Nsaids Gastric problems Other Reaction(s): gastroparesis, kidney problems, use with caution : hx esophagus damage Actos [Pioglitazone] Ceclor [Cefaclor] Unknown As child Jardiance [Empagliflozin] Other (Please comment) DKA with hospitalization Current Outpatient Medications Medication Sig Dispense Refill Timmy IsbelloStar 300 UNIT/ML Subcutaneous Solution Pen-injector (Insulin Glargine (1 Unit Dial)) Inject 40 units twice daily- this replaces lantus (Patient taking differently: Inject 48 units twice daily- this replaces lantus) 54 mL 4 BD Pen Needle Short U/F 31G X 8 MM (Insulin Pen Needle) Use to inject insulin 5 times daily 500 Each 3 OneTouch Verio In Vitro Strip (Glucose Blood) Use to check blood sugar once daily as needed 100 Strip 0 OneTouch Delica Lancets 33G Use to check blood sugars once daily as needed 100 Each 0 Dexcom G6 Sensor Use as directed every 10 days. 9 Each 5 Dexcom G6 Transmitter Use as directed. Change every 90 days 1 Each 5 Omnipod 5 [id number] Intro Gen 5 Kit Use as directed- bring this to visit on Sep 18 1 Kit 0 Omnipod 5 [id number] Pods Gen 5 Use as directed. Change pod every 2 days 45 Each 3 Insulin Aspart 100 UNIT/ML Injection Solution (NovoLOG) Inject up to 120 units daily using Omnipod 5 120 mL 4 Haloperidol 1 MG Oral Tablet (Haldol) Polyethylene Glycol 3350 17 GM Oral Packet (Miralax) Mix 1 Packet in 4 to 8 ounces of any beverage and drink by mouth in the morning. 14 Each 0 Ondansetron HCl 4 MG Oral Tablet Take 1 Tablet by mouth every 8 hours as needed for Nausea. 20 Tablet 0 Insulin Aspart FlexPen 100 UNIT/ML Subcutaneous Solution Pen-injector Inject 32 units with breakfast 22 units with lunch and 22 units with supper plus CF of 1:12 over 150. Max daily dose of 115 [id number] mL 4 Polyethylene Glycol 3350 17 GM/SCOOP Oral Powder (Miralax) Take 1 scoop daily in 8 ounces of water.510 g 5 Losartan Potassium 50 MG Oral Tablet (Cozaar) TAKE 1 TABLET BY MOUTH TWICE DAILY 60 Tablet 5 Omeprazole 40 MG Oral Capsule Delayed Release (PriLOSEC) Take 1 Capsule by mouth in the morning. 90Capsule 3 No current facility-administered medications for this visit. Objective: BP 142/82 | Pulse 108 | Temp 36.5 C (97.7 F) (Tympanic) | Resp 16 | Ht 1.88 m (6' 2") | Wt (!) 139.3 kg (307 lb 3.2 oz) | SpO2 93% | BMI 39.44 kg/m | BSA 2.7 m GEN: NAD HEENT: Benign NECK: Supple with no LAD, TM, JVD CHEST: CTA B CV: RRR ABD: Soft, NT/ND, No HSM, NABS EXT: No c,c,e Assessment and Plan: Gastroparesis (Primary) - ADULT GASTROENTEROLOGY REFERRAL OP Type 2 diabetes mellitus with hemoglobin A1c goal of less than 7.0% (HCC) COPD, moderate (HCC) Obstructive sleep apnea Constipation, unspecified constipation type Gastroesophageal reflux disease without esophagitis Morbid obesity (HCC) Hx of BKA, left (HCC) -continue all current medications and treatments. Gastroenterology should be contacting him about repeat endoscopic ultrasound and appropriate prep. -continue best efforts at managing diabetes. Continue with MTM. Follow Up: Return in about 3 months (around 2024) for recheck. | For: recheck | Check-out note:GI referral placed for appt next week with GI. 32 min with pt and chart review. Velasquez Valencia MD documented in this encounter Nursing Notes * Emily Wang MED ASSIST - 08/18/2024 10:47 AM EDT The patient has been properly identified by confirmation of name and date of . Chief Complaint Patient presents with Follow Up 3 month follow up. States stomach has improved but still has some pain since last visit and his bowel movements haven't improved at all. Pt needs referral sent to dr Prasanth Fernandez in gastro. documented in this encounter Plan of Treatment Upcoming Encounters Date Type Department Care Team (Latest Contact Info) Description 09/06/2024 7:40 AM EST Office Visit Nutrition & Weight Management, [address] [address] Elaina Mendoza CRNP [address] [place] [address] 09/18/2024 10:40 AM EST Office Visit Pharmacy, [facility] [address] [place] [address] [facility] [address] [place] [address] 10/26/2024 11:00 AM EST Hospital Encounter [facility] [address], [facility] [address], [address] [place] [address] Bipin Moss MD [address] [place] [address] 10/26/2024 11:00 AM EST - 10/26/2024 12:30 PM EST Surgery [facility], Endoscopy Suite, [facility] [address], [address] [place] [address] Bipin Moss MD [address] [place] [address] ESOPHAGOGASTRODUODENOSCOPY (EGD), FLEXIBLE, TRANSORAL, DIAGNOSTIC 11/23/2024 8:00 AM EST Office Visit [facility] [address] [place] [address] Velasquez Valencia MD [address] [place] [address] 07/09/2025 10:00 AM EDT Office Visit Pulmonary Medicine, [facility] [address] [id number] Vishal Wallace MD [address] [place] [address] Scheduled Procedures Name Priority Associated Diagnoses Date/Ti me ESOPHAGOGASTRODUODENOSCOPY ( EGD), FLEXIBLE, TRANSORAL, DIAGNOSTIC Pain of upper abdomen 10/26/2024 11:00 AM EST ESOPHAGOGASTRODUODENOSCOPY ( EGD), FLEXIBLE, TRANSORAL, ENDOSCOPIC ULTRASOUND Pain of upper abdomen 10/26/2024 11:00 AM EST COLONOSCOPY FLEXIBLE PROXIMA L DIAGNOSTIC Recall Screening for colon cancer Scheduled Referrals Name Type Priority Associated Diagnoses Order Schedule ADULT GASTROENTEROLOGY REFERRAL OP Referral Within 30 days (routine) Gastroparesis Ordered: 08/18/2024 Health Maintenance Due Date Last Done Comments [...] 04/19/2024 DISCUSS TOBACCO CESSATION (REFER TO SMARTSET #[id number]) 07/19/2025 07/19/2024, 10/16/2022 GFR 08/02/2025 08/02/2024, 07/18, [...] encounter Medical Devices Implanted Type Area Manager Action Device Identifier Shelf Expiration Date Model / Serial / Lot Suture Allen Dbl Load 4.75mm - [id number] Implanted:Qty: 1 on 12/01/2019 by Juidth Condon DO at OR [facility] Right: Shoulder [employer] 07/17/2021 [id number] -2 / / [id number] Suture Allen Dbl Load 5.5mm - [id number] Implanted:Qty: 1 on 12/01/2019 by Judith Condon DO at OR [facility] Right: Shoulder [employer] 09/16/2021 [id number] -[id number] / / [id number] documented as of this encounter Visit Diagnoses Diagnosis Gastroparesis- Primary Type 2 diabetes mellitus with hemoglobin A1c goal of less than 7.0% (HCC) COPD, moderate (HCC) Chronic airway obstruction, not elsewhere classified Obstructive sleep apnea Obstructive sleep apnea (adult) (pediatric) Constipation, unspecified constipation type Gastroesophageal reflux disease without esophagitis Esophageal reflux Morbid obesity (HCC) Morbid obesity Hx of BKA, left (HCC) Pain of upper abdomen Abdominal pain, other [...] Advance Directives occurred with: Patient Care Teams Motion Picture Set Up Worker Relationship Specialty Start Date End Date Velasquez Valencia MD [address] [place] [facility] [address] PCP - General Family Medicine 09/09/22 documented as of this encounter
--- OUTSIDE RECORDS SUMMARY | 2024-09-15 10:59 | External Medical Summary | Summary of Care ---
Author Name Unknown Organization [facility] Address [address] [facility] [place] [address] Phone [phone] Care Team Providers Care Border Machine Operator Name Role Phone Velasquez Valencia MD Primary Care Provider +1- [phone] Reason for Visit * Reason Onset Date Comments Forms Request 08/25/2024 Encounter Details Date Type Department Care Team (Late st Contact Info) Description 08/25/2024 Telephone [facility] [address] [place] [address] Velasquez Valencia MD [address] [place] [address] Forms Request Allergies Active Allergy Reactions Criticality Noted Date Comments Pioglitazone 07/19/2024 Cefaclor Unknown 07/26/2018 As child Empagliflozin Other (Please comment) 05/16/2021 DKA with hospitalization Nsaids High 04/19/2019 Gastric problems Other Reaction(s): gastroparesis, kidney problems, use with caution : hx esophagus damage documented as of this encounter (statuses as of 08/29/2024) Medications Polyethylene Glycol 3350 17 GM Oral Packet (Miralax) Mix 1 Packet in 4 to 8 ounces of any beverage and drink by mouth in the morning. 14 Each 11/05/2023 11:40 AM EST Active Ondansetron HCl 4 MG Oral Tablet Take 1 Tablet by mouth every 8 hours as needed for Nausea. 20 Tablet 11/05/2023 11:40 AM EST 4 Active Timmy Resendez 300 UNIT/ML Subcutaneous Solution Pen-injector (Insulin Glargine (1 Unit Dial))Indication s:Type 2 diabetes mellitus with hemoglobin A1c goal of less than 7.0% (HCC) Inject 40 units twice daily- this replaces lantus 54 mL 4 08/14/2024 12:19 PM EDT 4 Active Additional Information Patient taking differently: Inject 48 units twice daily- this replaces lantus, Reported on 08/18/2024 BD Pen Needle Short U/F 31G X 8 MM (Insulin Pen Needle)Indicatio ns:Type 2 diabetes mellitus with hemoglobin A1c goal of less than 7.0% (HCC) Use to inject insulin 5 times daily 500 Each 3 07/31/2024 8:17 AM EDT 4 Active Insulin Aspart FlexPen 100 UNIT/ML Subcutaneous Solution Pen-injectorIndi cations:Type 2 diabetes mellitus with hemoglobin A1c goal of less than 7.0% (HCC) Inject 32 units with breakfast 22 units with lunch and 22 units with supper plus CF of 1:12 over 150. Max daily dose of 115 units 120 mL 4 02/18/2024 10:04 AM EDT 4 Active Polyethylene Glycol 3350 17 GM/SCOOP Oral Powder (Miralax) Take 1 scoop daily in 8 ounces of water. 510 g 5 4 Active OneTouch Verio In Vitro Strip (Glucose Blood)Indication s:Type 2 diabetes mellitus with hemoglobin A1c goal of less than 7.0% (HCC) Use to check blood sugar once daily as needed 100 Strip 05/10/2024 5:28 PM EDT 4 Active OneTouch Delica Lancets 33GIndications:T ype 2 diabetes mellitus with hemoglobin A1c goal of less than 7.0% (HCC) Use to check blood sugars once daily as needed 100 Each 05/10/2024 5:28 PM EDT 4 Active Dexcom G6 SensorIndication s:Type 2 diabetes mellitus with hemoglobin A1c goal of less than 7.0% (HCC) Use as directed every 10 days. 9 Each 5 07/20/2024 10:09 AM EDT 4 Active Dexcom G6 TransmitterIndic ations:Type 2 diabetes mellitus with hemoglobin A1c goal of less than 7.0% (HCC) Use as directed. Change every 90 days 1 Each 5 07/20/2024 9:12 AM EDT 4 Active Omnipod 5 [id number] Intro Gen 5 KitIndications:T ype 2 diabetes mellitus with hemoglobin A1c goal of less than 7.0% (HCC) Use as directed- bring this to visit on Sep 18 1 Kit 08/25/2024 1:11 PM EST 4 Active Omnipod 5 IprE2A5 Pods Gen 5Indications:Typ e 2 diabetes mellitus with hemoglobin A1c goal of less than 7.0% (HCC) Use as directed. Change pod every 2 days 45 Each 3 08/18/2024 6:12 PM EDT 4 Active Insulin Aspart 100 UNIT/ML Injection Solution (NovoLOG)Indicat ions:Type 2 diabetes mellitus with hemoglobin A1c goal of less than 7.0% (HCC) Inject up to 120 units daily using Omnipod 5 120 mL 4 08/22/2024 3:39 PM EST 4 Active Haloperidol 1 MG Oral Tablet (Haldol) 4 Active Losartan Potassium 50 MG Oral Tablet (Cozaar) TAKE 1 TABLET BY MOUTH TWICE DAILY 60 Tablet 5 4 Active Omeprazole 40 MG Oral Capsule Delayed Release (PriLOSEC) Take 1 Capsule by mouth in the morning. 90 Capsule 3 4 Active documented as of this encounter (statuses as of 08/29/2024) Active Problems Problem Noted Date Diagnosed Date [...] as of this encounter (statuses as of 08/29/2024) Resolved Problems Problem Noted Date Diagnosed Date [...] as of this encounter (statuses as of 08/29/2024) Immunizations Name Administration Dates Next Due COVID-19 mRNA, LNP-s, No Pre serve, 2-Dose Series (Pfizer) 10/21/2021,03/01/2021,02/07/2021 H1N1 2009 Influenza, IM 11/04/2009 Pneumococcal Conjugate Vacci ne, 20-valent ([id number]) 07/09/2023 Pneumococcal Polysaccharide PPV23 (Pneumovax) 11/03/2015,02/09/2006 Seasonal [...] documented as of this encounter Functional Status * Are you [...] 04/10/2024 9:27 PM EDT Alicia Esteban RN documented as of this encounter Mental Status * Because of a physical, mental, or emotional condition, do you have serious difficulty concentrating, remembering, or making decisions? (5 years old or older) Answer Entry Date Author No 04/10/2024 9:27 PM EDT Alicia Esteban RN documented in this encounter Miscellaneous Notes * Telephone Encounter - Sparkle Garcia LPN - 08/29/2024 12:19 PM EST Scanned and sent with envelope provided. * Telephone Encounter - Velasquez Valencia MD - 08/25/2024 2:22 PM EST Form for social security office is at my desk. Please scan in first and then can mail with includedenvelope. documented in this encounter Plan of Treatment Upcoming Encounters Date Type Department Care Team (Latest Contact Info) Description 09/06/2024 7:40 AM EST Office Visit Nutrition & Weight Management, [place] [address] [place] [address] Elaina Mendoza CRNP [address] [place] [address] 09/18/2024 10:40 AM EST Office Visit Pharmacy, [place] [address] [place] [address] [facility] [address] [place] [address] 10/26/2024 11:00 AM EST Hospital En[place] [facility] [place] [address], [facility], [address] [place] [address] Bipin Moss MD [address] [place] [address] 10/26/2024 11:00 AM EST - 10/26/2024 12:30 PM EST Surgery [facility], [facility], [address] [place] [address] Bipin Moss MD [address] [place] [address] ESOPHAGOGASTRODUODENOSCOPY (EGD), FLEXIBLE, TRANSORAL, DIAGNOSTIC 11/23/2024 8:00 AM EST Office Visit [facility] [address] [place] [address] Velasquez Valencia MD [address] [place] [address] 07/09/2025 10:00 AM EDT Office Visit Pulmonary Medicine, [facility] [address] [facility] [place] [address] Vishal Wallace MD [address] [place] [address] Scheduled Procedures Name Priority Associated Diagnoses Date/Ti [...] this encounter Medical Devices Implanted Type Area Union Contract Representative Device Identifier Shelf Expiration Date Model / Serial / Lot Suture [place] Dbl Load 4.75mm - [id number] Implanted:Qty: 1 on 12/01/2019 by Judith Condon, DO at OR [facility] Right: Shoulder [employer] 07/17/2021 AR-2324BCT -2 / / [id number] Suture [place] Dbl Load 5.5mm - [id number] Implanted:Qty: 1 on 12/01/2019 by Judith Condon, at OR [facility] Right: Shoulder [employer] 09/16/2021 AR-2323BCT -2 / / [id number] documented as of this encounter Advance Directives [...] Advance Directives occurred with: Patient Care Teams Border Machine Operator Relationship Specialty Start Date End Date Velasquez Valencia MD [address] [place] [id number] PCP - General Family Medicine 09/09/22 documented as of this encounter
--- OUTSIDE RECORDS SUMMARY | 2024-09-15 10:59 | External Medical Summary | Summary of Care ---
Author Name Unknown Organization [facility] Address [address] [place] [address] Phone [phone] Care Team Providers Care Buggy Ladle Tender Name Role Phone Velasquez Valencia MD Primary Care Provider +1- [phone] Encounter Details Date Type Department Care Team (Late st Contact Info) Description 08/29/2024 9:45 AM EST Scheduled Telephone Care Coordination [facility] Integration [address] [place] [address] Jaye Roberts, Community Health Appointment Specialist [address] [place] [address] Allergies Active Allergy Reactions Criticality [...] 11/05/2023 11:40 AM EST 4 Active Timmy IsbellEllear 300 UNIT/ML Subcutaneous Solution Pen-injector (Insulin Glargine [...] less than 7.0% ([facility]) Use as directed every 10 days. 9 Each 5 07/20/2024 10:09 AM EDT 4 Active Dexcom G6 TransmitterIndic ations:Type 2 diabetes mellitus with hemoglobin A1c goal of less than 7.0% (HCC) Use as directed. Change every 90 days 1 Each 5 07/20/2024 9:12 AM EDT 4 Active Omnipod 5 TfqH3O2 Intro Gen 5 KitIndications:T ype 2 diabetes mellitus with hemoglobin A1c goal of less than 7.0% (HCC) Use as directed- bring this to visit on Sep 18 1 Kit 08/25/2024 1:11 PM EST 4 Active Omnipod 5 [id number] Pods Gen 5Indications:Typ e 2 diabetes mellitus [...] mRNA, LNP-s, No Pre serve, 2-Dose Series ([employer]) 10/21/2021,03/01/2021,02/07/2021 H1N1 2009 Influenza, IM 11/04/2009 Pneumococcal Conjugate Vacci ne, 20-valent ([id number]) 07/09/2023 Pneumococcal Polysaccharide PPV23 (Pneumovax) 11/03/2015,02/09/2006 Seasonal [...] No 08/15/2024 Does the household have a [facility] source of income? 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 Primary CM is Papi Watson Calendar (open [place] calendar) documented in this encounter Plan of Treatment Upcoming Encounters Date Type Department Care Team (Latest Contact Info) Description 09/06/2024 7:40 AM EST Office Visit Nutrition & Weight Management, [place] [address] [place] [address] Elaina Mendoza CRNP [address] [place] [address] 09/18/2024 10:40 AM EST Office Visit Pharmacy, [place] [address] [place] [address] [place] [facility] [address] [place] [address] 10/26/2024 11:00 AM EST Hospital Encounter [facility] [place] Suite, [facility] 1, [address] [place] [address] Bipin Moss MD [address] [place] [address] 10/26/2024 11:00 AM EST - 10/26/2024 12:[address] [facility], Endoscopy Suite, [facility] 1, [address] [place] [address] Bipin Moss MD [address] [place] [address] ESOPHAGOGASTRODUODENOSCOPY (EGD), FLEXIBLE, TRANSORAL, DIAGNOSTIC 11/23/2024 8:00 AM EST Office Visit [facility] [address] [place] [address] Velasquez Valencia MD [address] [place] [address] 07/09/2025 10:00 AM EDT Office Visit Pulmonary Medicine, [facility] [address] [facility] [place], [place] [id number] [facility]al [facility] [address] [facility] [id number] Scheduled Procedures Name Priority Associated Diagnoses Date/Ti [...] this encounter Medical Devices Implanted Type Area Keno Clerk Device Identifier Shelf Expiration Date Model / Serial / Lot Suture [place] Dbl Load 4.75mm - [id number] Implanted:Qty: 1 on 12/01/2019 by Judith Condon, DO at OR [facility] Right: Shoulder [employer] 07/17/2021 AR-2324BCT -2 / / [id number] Suture [place] Dbl Load 5.5mm - [id number] Implanted:Qty: 1 on 12/01/2019 by Judith Condon, DO at OR [facility] Right: Shoulder [employer] 09/16/2021 AR-2323BCT -2 / / [id number] documented as of this encounter Advance Directives [...] Advance Directives occurred with: Patient Care Teams Buggy Ladle Tender Relationship Specialty Start Date End Date Velasquez Valencia MD [address] [place] [address] PCP - General Family Medicine 09/09/22 documented as of this encounter
--- OUTSIDE RECORDS SUMMARY | 2024-09-15 11:00 | External Medical Summary | Summary of Care ---
Author Name Unknown Organization [facility] Address [address] [place] [address] Phone [phone] Care Team Providers Care Payloader Machine Operator Name Role Phone Velasquez Valencia MD Primary Care Provider [phone] Reason for Referral * Evaluate & Treat - Unlimited Visits (Within 10 days (routine)) - Authorized Specialty Diagnoses / Procedures Referred By Contact Referred To Contact GI NUTRITION/IM / Gastroenterology Diagnoses Class 2 severe obesity with serious comorbidity and body mass index (BMI) of 39.0 to 39.9 in adult, unspecified obesity type (HCC) Brook Steiner, DO [address] [place] [address] Referral ID Status Reason Start Date Expiration Date Visits Requested Visits Authorized [id number] Authorized Specialty Services Required 08/22/2024 [id number] Question Answer Referral Priority Within 10 days (routine) Where should this appointment be scheduled? [facility] For what condition is the patient being seen? Obesity Is this referral for a GLP1 medication? No Comments THE PATIENT WILL NOT BE PRESCRIBED GLP-1 MEDICATIONS UNLESS: *Documentation of an unsuccessful trial of losing at least 5% of weight loss *Documentation the patient has had tried and failed two [2] non-GLP1 agonists (Phentermine and Wellbutrin/ Naltrexone) *Documentation of two [2] or more appointments discussing weight loss and lifestyle changes *Documentation of a blood pressure and weight within the EMR before initiation of the GLP-1 or non-GLP-1 medications REFERRING PROVIDER MUST ACKNOWLEDGE ALL OF THE CONDITIONS ABOVE ARE MET AND HAVE A BMI >35. IF THESE CONDITIONS ARE NOT MET THE PATIENT WILL NOT BE PRESCRIBED GLP- 1 PRESCRIPTIONS. Reason for Visit * Reason Comments Consultation Gastroparesis [K31.8 4] - Primary * Evaluate & Treat - Unlimited Visits (Within 30 days (routine)) - Authorized Specialty Diagnoses / Procedures Referred By Bismark brown Referred To Contact Gastroenterology Diagnoses Gastroparesis Velasquez Valencia MD [address] [place] [address] Referral ID Status Reason Start Date Expiration Date Visits Requested Visits Authorized [id number] Authorized Specialty Services Required 08/18/[phone] Encounter Details Date Type Department Care Team (Late st Contact Info) Description 08/22/2024 1:50 PM EST Office Visit Gastroenterology, [place] [address] [place] [address] Brook Steiner DO [address] [place] [address] Class 2 severe obesity with serious comorbidity and body mass index (BMI) of 39.0 to 39.9 in adult, unspecified obesity type (HCC)*; Pain of upper abdomen; Chronic constipation Allergies Active Allergy Reactions Criticality Noted Date Comments Pioglitazone 07/19/2024 Cefaclor Unknown 07/26/2018 As child Empagliflozin Other (Please comment) 05/16/2021 DKA with hospitalization Nsaids High 04/19/2019 Gastric problems Other Reaction(s): gastroparesis, kidney problems, use with caution : hx esophagus damage documented as of this encounter (statuses as of 08/22/2024) Medications Medication Sig Dispensed Refills Start Date End Date Status Polyethylene Glycol 3350 17 GM Oral Packet (Miralax) Mix 1 Packet in 4 to 8 ounces of any beverage and drink by mouth in the morning. 14 Each 11/06/2023 Active Ondansetron HCl 4 MG Oral Tablet Take 1 Tablet by mouth every 8 hours as needed for Nausea. 20 Tablet 11/05/2023 Active Toujeo SoloStar 300 UNIT/ML Subcutaneous Solution Pen-injector (Insulin Glargine (1 Unit Dial))Indications :Type 2 diabetes mellitus with hemoglobin A1c goal of less than 7.0% (HCC) Inject 40 units twice daily- this replaces lantus 54 mL 4 01/19/2024 Active Additional Information Patient taking differently: Inject [...] 115 units 120 mL 4 02/16/2024 Active Polyethylene Glycol 3350 17 GM/SCOOP Oral Powder (Miralax) Take 1 scoop daily in 8 ounces of water. 510 g 5 04/21/2024 Active OneTouch Verio In Vitro Strip (Glucose [...] daily as needed 100 Each 05/09/2024 Active Dexcom G6 SensorIndications :Type 2 diabetes mellitus with hemoglobin A1c goal of less than 7.0% (HCC) Use as directed every 10 days. 9 Each 5 07/18/2024 Active Dexcom G6 TransmitterIndica tions:Type 2 diabetes mellitus with hemoglobin A1c goal of less than 7.0% (HCC) Use as directed. Change every 90 days 1 Each 5 07/18/2024 Active Omnipod 5 [id number] Intro Gen 5 KitIndications:Ty pe 2 diabetes mellitus with hemoglobin A1c goal of less than 7.0% (HCC) Use as directed- bring this to visit on Sep 18 1 Kit 08/18/2024 Active Omnipod 5 [id number] Pods Gen 5Indications:Type 2 diabetes mellitus with hemoglobin A1c goal of less than 7.0% ([facility]) Use as directed. Change pod every 2 days 45 Each 3 08/18/2024 Active Insulin Aspart 100 UNIT/ML Injection Solution (NovoLOG)Indicati ons:Type 2 diabetes mellitus with hemoglobin A1c goal of less than 7.0% ([facility]) Inject up to 120 units daily using Omnipod 5 120 mL 4 08/18/2024 Active Haloperidol 1 MG Oral Tablet (Haldol) 08/08/2024 Active Losartan Potassium 50 MG Oral Tablet (Cozaar) TAKE 1 TABLET BY MOUTH TWICE DAILY 60 Tablet 5 08/21/2024 Active Omeprazole 40 MG Oral Capsule Delayed Release (PriLOSEC) Take 1 Capsule by mouth in the morning. 90 Capsule 3 08/22/2024 Active Albuterol Sulfate HFA 108 (90 Base) MCG/ACT Inhalation Aerosol SolutionIndicatio ns:RSV bronchitis inhale 2 puffs by mouth and INTO THE LUNGS every 6 hours if needed for cough shortness of breath or WITHDRAWAL SYMPTOMS 54 g 3 10/29/2022 4 Discontinu ed(Medicat ion List Clean Up) Metamucil 0.52 GM Oral Capsule (Psyllium) Take 1 Capsule by mouth in the morning and 1 Capsule at noon and 1 Capsule before bedtime. 30 Capsule 11/05/2023 4 Discontinu ed(Medicat ion List Clean Up) Aspirin 81 MG Oral Tablet Delayed Release Take 1 Tablet by mouth in the morning. 90 Tablet 3 11/08/2023 4 Discontinu ed(Medicat ion List Clean Up) Metoprolol Succinate ER 100 MG Oral Tablet Extended Release 24 Hour (toPROL XL)Indications:HT N, goal below 140/90 Take 1 tab by mouth twice per day 180 Tablet 3 12/29/2023 4 Discontinu ed(Medicat ion List Clean Up) traMADol HCl 50 MG Oral Tablet (Ultram)Indicatio ns:Abdominal pain, epigastric Take 1 Tablet by mouth every 6 hours as needed for Pain, Severe. 40 Tablet 02/22/2024 4 Discontinu ed(Medicat ion List Clean Up) traMADol HCl 50 MG Oral Tablet (Ultram)Indicatio ns:Abdominal pain, generalized,Phant om limb pain (HCC) Take 1 Tablet by mouth every 6 hours as needed for Pain, Severe. Take 1-2 tabs by mouth every 6 hours as needed for severe pain in want to do it due 8 it has been 80 Tablet 04/14/2024 4 Discontinu ed(Medicat ion List Clean Up) Alum & Mag Hydroxide-Simeth 400-400-40 MG/5ML Oral Suspension (Mi-Acid II)Indications:Co nstipation, unspecified constipation type Take 15 ml every 6 hours as needed for constipation 355 mL 3 04/21/2024 4 Discontinu ed(Medicat ion List Clean Up) Atorvastatin Calcium 20 MG Oral Tablet (Lipitor) Take 1 Tablet by mouth in the morning. 90 Tablet 3 04/28/2024 4 Discontinu ed(Medicat ion List Clean Up) Gabapentin 100 MG Oral Capsule (Neurontin)Indica tions:Neuropathy TAKE 2 CAPSULES BY MOUTH EVERY 12 HOURS 120 Capsule 3 05/31/2024 4 Discontinu ed(Medicat ion List Clean Up) oxyCODONE HCl 5 MG Oral Tablet (Oxy IR)Indications:[facility] mbar disc herniation Take 1 Tablet by mouth every 8 hours as needed for Pain, Severe. 20 Tablet 06/20/2024 4 Discontinu ed(Medicat ion List Clean Up) Pantoprazole Sodium 40 MG Oral Tablet Delayed Release (Protonix) TAKE 1 TABLET BY MOUTH TWICE A DAY 180 Tablet 3 07/03/2024 4 Discontinu ed(Medicat ion List Clean Up) Famotidine 20 MG Oral Tablet (Pepcid) TAKE ONE TABLET BY MOUTH NIGHTLY AT BEDTIME 90 Tablet 3 07/03/2024 4 Discontinu ed(Medicat ion List Clean Up) Spiriva Respimat 2.5 MCG/ACT Inhalation Aerosol Solution (Tiotropium [place] Monohydrate) Inhale 2 Puffs by mouth in the morning. 1 Each 2 07/04/2024 4 Discontinu ed(Medicat ion List Clean Up) Torsemide 10 MG Oral Tablet (Demadex)Indicati ons:Acute on chronic diastolic heart failure (HCC) Take 2 tabs by mouth daily 180 Tablet 3 07/28/2024 4 Discontinu ed(Medicat ion List Clean Up) Terazosin HCl 1 MG Oral Capsule (Hytrin) TAKE 1 CAPSULE BY MOUTH AT BEDTIME 30 Capsule 5 08/21/2024 4 Discontinu ed(Medicat ion List Clean Up) Spironolactone 25 MG Oral Tablet (Aldactone) TAKE 1 TABLET BY MOUTH EVERY MORNING 30 Tablet 5 08/21/2024 4 Discontinu ed(Medicat ion List Clean Up) Torsemide 20 MG Oral Tablet (Demadex) TAKE 1 TABLET BY MOUTH EVERY MORNING 30 Tablet 5 08/21/2024 4 Discontinu ed(Medicat ion List Clean Up) documented as of this encounter (statuses as of 08/22/2024) Active Problems Problem Noted Date Diagnosed Date Well adult exam 08/06/2024 Overview: 08/10 EGD poor prep-repeat. Chest pain, non-cardiac [...] as of this encounter (statuses as of 08/22/2024) Resolved Problems Problem Noted Date Diagnosed Date [...] as of this encounter (statuses as of 08/22/2024) Immunizations Name Administration Dates Next Due COVID-19 mRNA, LNP-s, No Pre serve, 2-Dose Series (SMRxT) 10/21/2021,03/01/2021,02/07/2021 H1N1 2009 Influenza, IM 11/04/2009 Pneumococcal Conjugate Vacci ne, 20-valent (Remflge25) 07/09/2023 Pneumococcal Polysaccharide PPV23 (Pneumovax) 11/03/2015,02/09/2006 Seasonal [...] Sign Reading Time Taken Comments Blood Pressure 132/70 08/22/2024 1:41 PM EST Pulse 112 08/22/2024 1:41 PM EST Temperature - - Respiratory Rate - - Oxygen Saturation 95% 08/22/2024 1:41 PM EST Inhaled Oxygen Concentration - - Weight - [...] this encounter Patient Instructions * Patient Instructions* Brook Steiner, - 08/22/2024 2:13 PM EST 4 Dulcolax (bisacodyl) 5 mg tablets 1 Miralax 238 GM bottle 64 ounces liquid Mix Miralax bottle with 64 ounces of liquid. Drink 8 ounces every 30 minutes until colon is cleanedout. Take 1-2 capfuls Miralax mixed with 8 ounces of liquid daily to twice daily. Step 1: Sports Drinks and [place] For severe nausea and vomiting; -Small volumes of salty liquids, with enough calories to avoid dehydration -Chewable multivitamin Calorie goal:0341-7395 mL/day in multiple servings *Can sip 30-60 mL at a time to reach around 120 mL/hr Avoid: -[place] beverages -Sweet drinks Step 2: Soups and Smoothies If able to tolerate Step 1: -Soup with noodles or rice and crackers -Smoothies with low-fat dairy -Peanut butter, cheese, and crackers in small amounts -Caramels or other chewy candies -Eat 6 small meals a day -Chewable multivitamin Calorie goal-Around 1500 calories/day to avoid dehydration and maintain weight Avoid: Creamy, milk based liquids Step 3: Starches, Chicken, Fish If able to tolerate Step 2: -Noodles, pastas, potatoes (mashed or baked), rice, baked chicken breast, fish -Eat 6 small meals a day -Multivitamin (liquid or dissolvable) --Common foods that the person finds interesting and satisfying and that provoke minimal nausea/vomiting symptoms Avoid: Fatty foods that delay gastric emptying; red meats and fresh vegetables, pulpy fibrous foods documented in this encounter Progress Notes * Brook Steiner DO - 08/22/2024 1:44 PM EST Images from the original note were not included. History of Present Illness Bry Akhtar Jr. is a 48 year old male that presents for Chief Complaint Patient presents with Consultation Gastroparesis [K31.84] - Primary Patient was referred by Jae Holder DO Patient has been having digestive problems for years. Was scheduled for EGD with EUS in July 2024. However, patient was found to have a large amount of food in his stomach which prevented the procedure from getting completed. EGD 08/02/2024: Impression: - A medium amount of food (residue) in the stomach. - No specimens collected. Recommendation: - The patient will be observed post-procedure, until all discharge criteria are met. - Advance diet as tolerated today. - Repeat upper endoscopy at appointment to be scheduled because the preparation was poor. - Clear liquid diet 24 hours prior to next attempt, Reglan every 6 hours for 24 hours in advance as well. Went to the ER afterwards because he thought he was having a heart attack. CT 07/2024: FINDINGS LOWER CHEST: Lingular and bibasilar atelectasis/scarring. ABDOMEN/PELVIS: LIVER: Within normal limits. BILE DUCTS: Within normal limits. GALLBLADDER: Within normal limits. PANCREAS: Within normal limits. SPLEEN: Within normal limits. ADRENALS: Within normal limits. KIDNEYS/URETERS: Within normal limits. BLADDER: Within normal limits. BOWEL: Appendectomy. No bowel obstruction. LYMPH NODES: Within normal limits. VESSELS: Atherosclerosis of the large and branch vessels. REPRODUCTIVE ORGANS: Unremarkable. PERITONEUM/RETROPERITONEUM: Within normal limits. ABDOMINAL WALL/SOFT TISSUES: Radiodense device is external to the patient's left hemiabdomen. Otherwise, unremarkable. BONES: Degenerative changes of the spine Patient states that he has chronic epigastric abdominal pain. He states that he was frustrated thathis procedures could not be completed due to the presence of food in in stomach, but he understandsthat the food posed an aspiration risk. Patient reports that bowel movements are hard to pass. States that stools are hard to pass and he goes every few days. Denies rectal bleeding. Had colonoscopy this year with adequate prep. Patient states that his sugars normally run high. He states that he is getting an Omnipod soon which he hopes will help his sugars become more controlled. Physical Exam Filed Vitals: 08/22/24 1341 BP: 132/70 Pulse: 112 SpO2: 95% General: alert, no distress, and obese Heart: regular rate & rhythm, no murmur, and no gallops Lungs: chest symmetric with normal AP diameter, no chest deformities noted, no chest wall tenderness, decreased breath sounds bilaterally Abdomen: abdomen soft, non-tender, no masses or organomegaly, and decreased bowel sounds Extremities: no joint deformities, effusion, or inflammation, left BKA I have reviewed the following results: Imaging results in the last [address] ABD/PELVIS W IV CONTRAST - WO ORAL CONTRAST Result Date: 08/02/2024 IMPRESSION No acute findings within the abdomen or pelvis. I have personally reviewed this examination and agree with the resident/fellow physician's interpretation. XR CHEST 2 VIEWS Result Date: 08/02/2024 IMPRESSION Hypoventilatory changes without acute cardiopulmonary disease seen. I have personally reviewed this examination and agree with the resident/fellow physician's interpretation. XR KNEE 4 OR MORE VIEWS Result Date: 07/07/[address] ABD/PELVIS WO IV/ORAL CONTRAST Result Date: [...] BEEN ELECTRONICALLY SIGNED BY MAMTA GROSS MD BMP results Recent Labs Units 08/02/24 1349 07/29/24 0000 07/19/24 1239 05/09/24 1359 SODIUM - [facility] mmol/L 136 -- 135 138 POTASSIUM - [facility] mmol/L 4.1 4.8 5.3* 4.8 CHLORIDE - [facility] mmol/L 98 -- 95* 100 CO2 - [facility] mmol/L 23 -- 24 26 CREATININE - [facility] mg/dL 1.0 1.57* 1.2 1.0 BUN - [facility] mg/dL 18 -- 23* 23* Lipid panel results Recent Labs Units 04/11/24 0345 12/13/23 0439 01/05/23 1133 CHOLESTEROL - [facility] mg/dL 131 126 219* HDL CHOLESTEROL - [facility] mg/dL 32* 30* 38* TRIGLYCERIDES - [facility] mg/dL 311* 248* | 240* 276* CBC results Recent Labs Units 08/02/24 1349 07/29/24 0000 05/09/24 1359 04/13/24 0430 WBC K/uL 7.13 -- 6.84 6.11 HGB g/dL 13.3* 12.7* 10.6* 11.2* HCT % 41.5 -- 33.8* 36.0* PLT K/uL 214 -- 252 222 HbA1c results Recent Labs Units 05/09/24 1359 03/07/24 0517 01/14/24 1059 HEMOGLOBIN A1C - [facility] % 8.6* -- 10.2* HEMOGLOBIN, [id number] LAB % -- 10.0* -- TSH results No results for input(s): "TSH" in the last 47778 hours. Vitamin D results No results for input(s): "25OHVITAMIND" in the last 57002 hours. Hepatic panel results Recent Labs Units 08/02/24 1349 05/09/24 1359 04/12/24 0945 04/10/24 1508 03/28/24 1047 PROTEIN - [facility] g/dL 7.1 6.7 7.7 < > -- ALBUMIN, SERUM - OUTSIDE LAB g/dL -- -- -- -- 3.3* BILIRUBIN, TOTAL - [facility] mg/dL 0.5 <0.2 0.4 < > -- ALKALINE PHOSPHATASE - [facility] U/L 83 86 115 < > -- AST - [facility] U/L 22 12 31 < > -- AST-OUTSIDE LAB U/L -- -- -- -- 19 ALT - [facility] U/L 29 18 44 < > -- ALT-OUTSIDE LAB U/L -- -- -- -- 26 < > = values in this interval not displayed. Assessment and Plan (R10.10) Pain of upper abdomen (primary encounter diagnosis) (K59.09) Chronic constipation Wrap-Up Recommend colonoscopy prep to clean out colon and then Miralax 1-2 times a day thereafter. Small frequent meals, gastroparesis diet. Initiate omeprazole 40 mg daily. Low fiber, low fat diet. Reschedule EGD/EUS with clear liquid diet the day before. Patient is interested in gastric bypass but encouraged patient to stop smoking before that can be considered. Time: I spent a total of 40-54 minutes (exact time 45 mins) on the date of service in preparation, delivery, and documentation of the care provided to Bry Akhtar Jr. excluding any time spent in the performance of separately billed services. documented in this encounter Plan of Treatment Upcoming Encounters Date Type Department Care Team (Late st Contact Info) Description 08/28/2024 2:30 PM EST Office Visit Pharmacy, [place] [address] [place] [address] [facility] [address] [place] [address] 08/29/2024 9:45 AM EST Scheduled Telephone Care Coordination and Integration [address] [place] [address] Jaye Roberts, Community Health Geographical Historian [address] [place] [address] 09/18/2024 10:40 AM EST Office Visit Pharmacy, [place] [address] [place] [address] [facility] [address] [place] [address] 11/23/2024 8:00 AM EST Office Visit [facility] [address] [place] [address] Velasquez Valencia MD [address] [place] [address] 07/09/2025 10:00 AM EDT Office Visit Pulmonary Medicine, [facility] [address] [facility] [place] [address] Vishal Wallace MD [address] [place] [address] Pending Results Name Type Priority Associated Diagnoses Date /Time US ENDOSCOPIC Medical Imaging Routine 2023 11:53 AM EDT Scheduled Orders Name Type Priority Associated Diagnoses Orde r Schedule EGD, FLEXIBLE, DIAGNOSTIC Procedures Routine Pain of upper abdomen Ordered: 08/22/2024 US ENDOSCOPIC Medical Imaging Routine Pain of upper abdomen Expected: 09/21/2024, Expires: 09/21/2025 Scheduled Procedures Name Priority Associated Diagnoses Date/Ti me COLONOSCOPY FLEXIBLE PROXIMA L DIAGNOSTIC Recall Screening for colon cancer Scheduled Referrals Name Type Priority Associated Diagnoses Orde r Schedule GI NUTRITION REFERRAL OP Referral Within 10 days (routine) Class 2 severe obesity with serious comorbidity and body mass index (BMI) of 39.0 to 39.9 in adult, unspecified obesity type (HCC) Ordered: 08/22/2024 Health Maintenance Due Date Last Done Comments Hepatitis B Vaccine (1 of 3 - 19+ 3-dose series) 1992 Cologuard 2018 Fecal Occult Blood Test 2018 Sigmoidoscopy 2018 COVID-19 Vaccine ( season) 2024 10/21/2021, 03/01/2021, 02/07/2021 Diabetic Eye Exam 08/25/2024 07/28/2023, , 03/07/2021, Additional history exists Postponed from 07/28/2024 (Patient Declined After Education) Diabetic Foot Exam 08/25/2024 07/09/2023, 0 03/07/2021, 11/27/2019, Additional history exists Postponed from 07/09/2024 (Patient Declined After Education) HIV Screening 08/26/2024 Postponed from 1988 (Patient Declined After Education) Hepatitis C Screening 08/26/2024 Postpo hayley from 1991 (Patient Declined After Education) Zoster Vaccines (1 of 2) 08/26/2024 Pos tponed from 2023 (Patient Declined After Education) HbA1c 11/09/2024 05/09/2024, 052 10/2023, 01/14/2024, Additional history exists Albumin/Creatinine Ratio 01/13/2025 024, 01/05/2023, 09/01/2021, Additional history exists Depression Screening 04/19/2025 04/19/2024 DISCUSS TOBACCO CESSATION (REFER TO SMARTSET #[id number]) 07/19/2025 07/19/2024, 10/16/2022 GFR 08/02/2025 08/02/2024, 07/18, [...] this encounter Medical Devices Implanted Type Area Early Interventionist Device Identifier Shelf Expiration Date Model / Serial / Lot Suture [place] Dbl Load 4.75mm - [id number] Implanted:Qty: 1 on 12/01/2019 by Judith Condon DO at [facility] Right: Shoulder [employer] 07/17/2021 AR-[id number] -2 / / [id number] Suture [place] Dbl Load 5.5mm - [id number] Implanted:Qty: 1 on 12/01/2019 by Judith Condon DO at OR [facility] Right: Shoulder [employer] 09/16/2021 [id number] -2 / / [id number] documented as of this encounter Visit Diagnoses Diagnosis Class 2 severe obesity with serious comorbidity and body mass index (BMI) of 39.0 to 39.9 in adult, unspecified obesity type (HCC)- Primary Pain of upper abdomen Abdominal pain, other specified site Chronic constipation Unspecified constipation documented in this encounter Advance Directives * [...] Advance Directives occurred with: Patient Care Teams Payloader Machine Operator Relationship Specialty Start Date End Date Velasquez Valencia MD [address] [facility] [place] [address] PCP - General Family Medicine 09/09/22 documented as of this encounter
--- OUTSIDE RECORDS SUMMARY | 2024-09-15 11:00 | External Medical Summary | Summary of Care ---
Author Name Unknown Organization [facility] Address [address] [place] [address] Phone [phone] Care Team Providers Care Poker Prop Player Name Role Phone Velasquez Valencia MD Primary Care Provider +1- [phone] Encounter Details Date Type Department Care Team (Late st Contact Info) Description 08/22/2024 10:45 AM EST Scheduled Telephone Care Coordination and Integration [address] [place] [address] Jaye Roberts, Community Health Nitric Acid Plant Operator [address] [place] [address] Allergies Active Allergy Reactions Criticality [...] WITHDRAWAL SYMPTOMS 54 g 3 10/29/2022 Active Additional Information Patient not taking.Reported on 08/02/2024 Metamucil 0.52 GM Oral Capsule (Psyllium) Take 1 Capsule by mouth in the morning and 1 Capsule at noon and 1 Capsule before bedtime. 30 Capsule 11/05/2023 Active Additional Information Patient not taking.Reported on 08/07/2024 Polyethylene Glycol 3350 17 GM Oral Packet (Miralax) Mix 1 Packet in 4 to 8 ounces of any beverage and drink by mouth in the morning. 14 Each 11/06/2023 Active Additional Information Patient not taking.Reported on 08/18/2024 Ondansetron HCl 4 MG Oral Tablet Take 1 Tablet by mouth every 8 hours as needed for Nausea. 20 Tablet 11/05/2023 Active Additional Information Patient not taking.Reported on 08/18/2024 Aspirin 81 MG Oral Tablet Delayed Release Take 1 Tablet by mouth in the morning. 90 Tablet 3 11/08/2023 Active Additional Information Patient not taking.Reported on 08/18/2024 Metoprolol Succinate ER 100 MG Oral Tablet Extended Release 24 Hour (toPROL XL)Indications:HTN , goal below 140/90 Take 1 tab by mouth twice per day 180 Tablet 3 12/29/2023 Active Additional Information Patient not taking.Reported on 08/18/2024 Touorlandoo SoloStar 300 UNIT/ML Subcutaneous Solution Pen-injector (Insulin [...] mL 4 02/16/2024 Active Additional Information Patient not taking.Reported on 08/18/2024 traMADol HCl 50 MG Oral Tablet (Ultram)Indication s:Abdominal pain, epigastric Take 1 Tablet by mouth every 6 hours as needed for Pain, Severe. 40 Tablet 02/22/2024 Active Additional Information Patient not taking.Reported on 08/18/2024 traMADol HCl 50 MG Oral Tablet (Ultram)Indication s:Abdominal pain, generalized,Phanto m limb pain (HCC) Take 1 Tablet by mouth every 6 hours as needed for Pain, Severe. Take 1-2 tabs by mouth every 6 hours as needed for severe pain in want to do it due 8 it has been 80 Tablet 04/14/2024 Active Additional Information Patient not taking.Reported on 08/18/2024 Alum & Mag Hydroxide-Simeth 400-400-40 MG/5ML Oral Suspension (Mi-Acid II)Indications:Con stipation, unspecified constipation type Take 15 ml every 6 hours as needed for constipation 355 mL 3 04/21/2024 Active Additional Information Patient not taking.Reported on 08/18/2024 Polyethylene Glycol 3350 17 GM/SCOOP Oral Powder (Miralax) Take 1 scoop daily in 8 ounces of water. 510 g 5 04/21/2024 Active Additional Information Patient not taking.Reported on 08/18/2024 Atorvastatin Calcium 20 MG Oral Tablet (Lipitor) Take 1 Tablet by mouth in the morning. 90 Tablet 3 04/28/2024 Active Additional Information Patient not taking.Reported on 08/18/2024 OneTouch Verio In Vitro Strip (Glucose Blood)Indications: Type 2 diabetes mellitus with hemoglobin A1c goal of less than 7.0% ([facility]) Use to check blood sugar once daily as needed 100 Strip 05/09/2024 Active OneTouch Delica Lancets 33GIndications:Typ e 2 diabetes mellitus with hemoglobin A1c goal of less than 7.0% ([facility]) Use to check blood sugars once daily as needed 100 Each 05/09/2024 Active Gabapentin 100 MG Oral Capsule (Neurontin)Indicat ions:Neuropathy TAKE 2 CAPSULES BY MOUTH EVERY 12 HOURS 120 Capsule 3 05/31/2024 Active Additional Information Patient not taking.Reported on 08/18/2024 oxyCODONE HCl 5 MG Oral Tablet (Oxy IR)Indications:Lum bar disc herniation Take 1 Tablet by mouth every 8 hours as needed for Pain, Severe. 20 Tablet 06/20/2024 Active Additional Information Patient not taking.Reported on 08/18/2024 Pantoprazole Sodium 40 MG Oral Tablet Delayed Release (Protonix) TAKE 1 TABLET BY MOUTH TWICE A DAY 180 Tablet 3 07/03/2024 Active Additional Information Patient not taking.Reported on 08/18/2024 Famotidine 20 MG Oral Tablet (Pepcid) TAKE ONE TABLET BY MOUTH NIGHTLY AT BEDTIME 90 Tablet 3 07/03/2024 Active Additional Information Patient not taking.Reported on 08/18/2024 Spiriva Respimat 2.5 MCG/ACT Inhalation Aerosol Solution (Tiotropium [place] Monohydrate) Inhale 2 Puffs by mouth in the morning. 1 Each 2 07/04/2024 Active Additional Information Patient not taking.Reported on 08/18/2024 Dexcom G6 SensorIndications: Type 2 diabetes mellitus with hemoglobin A1c goal of less than 7.0% (HCC) Use as directed every 10 days. 9 Each 5 07/18/2024 Active Dexcom G6 TransmitterIndicat ions:Type 2 diabetes mellitus with hemoglobin A1c goal of less than 7.0% (HCC) Use as directed. Change every 90 days 1 Each 5 07/18/2024 Active Torsemide 10 MG Oral Tablet (Demadex)Indicatio ns:Acute on chronic diastolic heart failure (HCC) Take 2 tabs by mouth daily 180 Tablet 3 07/28/2024 Active Additional Information Patient not taking.Reported on 08/18/2024 Omnipod 5 [id number] Intro Gen 5 KitIndications:Typ e 2 diabetes mellitus with hemoglobin A1c goal of less than 7.0% (HCC) Use as directed- bring this to visit on Sep 18 1 Kit 08/18/2024 Active Omnipod 5 [id number] Pods Gen 5Indications:Type 2 diabetes mellitus with hemoglobin A1c goal of less than 7.0% (HCC) Use as directed. Change pod every 2 days 45 Each 3 08/18/2024 Active Insulin Aspart 100 UNIT/ML Injection Solution (NovoLOG)Indicatio ns:Type 2 diabetes mellitus with hemoglobin A1c goal of less than 7.0% (HCC) Inject up to 120 units daily using Omnipod 5 120 mL 4 08/18/2024 Active Haloperidol 1 MG Oral Tablet (Haldol) 08/08/2024 Active Terazosin HCl 1 MG Oral Capsule (Hytrin) TAKE 1 CAPSULE BY MOUTH AT BEDTIME 30 Capsule 5 08/21/2024 Active Spironolactone 25 MG Oral Tablet (Aldactone) TAKE 1 TABLET BY MOUTH EVERY MORNING 30 Tablet 5 08/21/2024 Active Losartan Potassium 50 MG Oral Tablet (Cozaar) TAKE 1 TABLET BY MOUTH TWICE DAILY 60 Tablet 5 08/21/2024 Active Torsemide 20 MG Oral Tablet (Demadex) TAKE 1 TABLET BY MOUTH EVERY MORNING 30 Tablet 5 08/21/2024 Active documented as of this encounter (statuses [...] mRNA, LNP-s, No Pre serve, 2-Dose Series (Bomberbot) 10/21/2021,03/01/2021,02/07/2021 H1N1 2009 Influenza, IM 11/04/2009 Pneumococcal Conjugate Vacci ne, 20-valent ([id number]) 07/09/2023 Pneumococcal Polysaccharide PPV23 (Pneumovax) 11/03/2015,02/09/2006 Seasonal [...] as of this encounter Progress Notes * Jaye Roberts, Community [facility] Nitric Acid Plant Operator - 08/22/2024 11:59 AM EST Telemedicine visit: No Community Health Nitric Acid Plant Operator (AGA) documentation: [facility] outbound call to patient per Has PT 3 X a week Started using prosthetic- per patient it is going to be awhile to get comfortable wearing it SOB with exertion Denies Swelling Last weight taken was [address] Olivares's office Patient is trying to get with [facility] [place] [place] to set up scales states he has so many appointments its been hardto connect Patient was going to Dr summers in [place] today Jaye [facility] Community Health Worker Call or Text- [phone] documented in this encounter Plan of Treatment Upcoming Encounters Date Type Department Care Team (Late st Contact Info) Description 08/22/2024 1:50 PM EST Office Visit Gastroenterology, [place] [address] [place] [address] Brook Steiner DO [address] [place] [address] Acute pancreatitis, unspecified complication status, unspecified pancreatitis type 08/28/2024 2:30 PM EST Office Visit Pharmacy, [place] [address] [place] [address] [facility] [address] [place] [address] 08/29/2024 9:45 AM EST Scheduled Telephone Care Coordination and Integration [address] [place] [address] Jaye Roberts, Community Health Nitric Acid Plant Operator [address] [place] [address] 09/18/2024 10:40 AM EST Office Visit Pharmacy, [place] [address] [place] [address] [facility] [address] [place] [address] 11/23/2024 8:00 AM EST [facility] [address] [place] [address] Velasquez Valencia MD [address] [place] [address] 07/09/2025 10:00 AM EDT Office Visit Pulmonary Medicine, [facility] [address] [facility] [place] [id number] Vishal Wallace MD [address] [place] [id number] Scheduled Procedures Name Priority Associated Diagnoses Date/Ti [...] 04/19/2024 DISCUSS TOBACCO CESSATION (REFER TO SMARTSET #6729) 07/19/2025 07/19/2024, 10/16/2022 GFR 08/02/2025 08/02/2024, 07/18, [...] this encounter Medical Devices Implanted Type Area Education Analyst Device Identifier Shelf Expiration Date Model / Serial / Lot Suture [place] Dbl Load 4.75mm - [id number] Implanted:Qty: 1 on 12/01/2019 by Judith Condon, at OR [facility] Right: Shoulder [employer] 07/17/2021 AR-2324BCT -2 / / [id number] Suture [place] Dbl Load 5.5mm - [id number] Implanted:Qty: 1 on 12/01/2019 by Judith Condon, at OR [facility] Right: Shoulder [employer] 09/16/2021 AR-2323BCT -2 / / [id number] documented as of this encounter Advance Directives [...] Advance Directives occurred with: Patient Care Teams Poker Prop Player Relationship Specialty Start Date End Date Velasquez Valencia MD [address] [facility] [place] [id number] PCP - General Family Medicine 09/09/22 documented as of this encounter
--- OUTSIDE RECORDS SUMMARY | 2024-09-15 11:00 | External Medical Summary | Summary of Care ---
Author Name Unknown Organization [facility] Address [address] [place] [address] Phone [phone] Care Team Providers Care Real Estate Services Administrator Name Role Phone Velasquez Valencia MD Primary Care Provider +1- [phone] Reason for Visit * Reason Onset Date Comments Appointment 08/22/2024 EGD/EUS Encounter Details Date Type Department Care Team (Late st Contact Info) Description 08/22/2024 Telephone Gastroenterology, [place] [address], [place] [id number] Specified, [place] [facility] [address] [place] [address] Appointment (EGD/EUS) Allergies Active Allergy Reactions Criticality Noted Date Comments Pioglitazone 07/19/2024 Cefaclor Unknown 07/26/2018 As child Empagliflozin Other (Please comment) 05/16/2021 DKA with hospitalization Nsaids High 04/19/2019 Gastric problems Other Reaction(s): gastroparesis, kidney problems, use with caution : hx esophagus damage documented as of this encounter (statuses as of 08/23/2024) Medications Medication Sig Dispensed Refills Start Date [...] Active OneTouch Verio In Vitro Strip (Glucose Blood)Indications:T ype 2 diabetes mellitus with hemoglobin A1c goal of less than 7.0% (HCC) Use to check blood sugar once daily as needed 100 Strip 05/09/2024 Active OneTouch Delica Lancets 33GIndications:Type 2 diabetes mellitus with hemoglobin A1c goal of less than 7.0% (HCC) Use to check blood sugars once daily as needed 100 Each 05/09/2024 Active Dexcom G6 SensorIndications:T ype 2 diabetes mellitus with hemoglobin A1c goal of less than 7.0% (HCC) Use as directed every 10 days. 9 Each 5 07/18/2024 Active Dexcom G6 TransmitterIndicati ons:Type 2 diabetes mellitus with hemoglobin A1c goal of less than 7.0% (HCC) Use as directed. Change every 90 days 1 Each 5 07/18/2024 Active Omnipod 5 [id number] Intro Gen 5 KitIndications:Type 2 diabetes mellitus with hemoglobin A1c goal of less than 7.0% (HCC) Use as directed- bring this to visit on Sep 18 1 Kit 08/18/2024 Active Omnipod 5 [id number] Pods Gen 5Indications:Type 2 diabetes mellitus with hemoglobin A1c goal of less than 7.0% ([facility]) Use as directed. Change pod every 2 days 45 Each 3 08/18/2024 Active Insulin Aspart 100 UNIT/ML Injection Solution (NovoLOG)Indication s:Type 2 diabetes mellitus with hemoglobin A1c goal of less than 7.0% ([facility]) Inject up to 120 units daily using Omnipod 5 120 mL 4 08/18/2024 Active Haloperidol 1 MG Oral Tablet (Haldol) 08/08/2024 Active Losartan Potassium 50 MG Oral Tablet (Cozaar) TAKE 1 TABLET BY MOUTH TWICE DAILY 60 Tablet 5 08/21/2024 Active Omeprazole 40 MG Oral Capsule Delayed Release (PriLOSEC) Take 1 Capsule by mouth in the morning. 90 Capsule 3 08/22/2024 Active documented as of this encounter (statuses as of 08/23/2024) Active Problems Problem Noted Date Diagnosed Date [...] as of this encounter (statuses as of 08/23/2024) Resolved Problems Problem Noted Date Diagnosed Date [...] as of this encounter (statuses as of 08/23/2024) Immunizations Name Administration Dates Next Due COVID-19 mRNA, LNP-s, No Pre serve, 2-Dose Series (Odeeo) 10/21/2021,03/01/2021,02/07/2021 H1N1 2009 Influenza, IM 11/04/2009 Pneumococcal Conjugate Vacci ne, 20-valent ([id number]) 07/09/2023 Pneumococcal Polysaccharide PPV23 (Pneumovax) 11/03/2015,02/09/2006 Seasonal [...] Miscellaneous Notes * Telephone Encounter - Alyssa Ramires OSA - 08/23/2024 10:50 AM EST Scheduled * Telephone Encounter - Alyssa Ramires OSA - 08/22/2024 4:12 PM EST Images from the original note were not included. Order US ENDOSCOPIC [[id number]] (Order [id number]) Ordered On 08/22/2024 2:16 PM Ordering Provider Authorizing Provider Ordering User Ordering Department Brook Steiner DO Seeley, Rouenne, DO Seeley, Rouenne, DO [facility] Gastroenterology Gastroenterology Gastroenterology Gastroenterology [phone] Order Providers Authorizing Provider Encounter Provider ([id number]) Brook Steiner DO ([id number]) Brook Steiner DO Result Information Date and Time: Ordered: 08/22/2024 14:16 Provider Status: Exam Details Performed Procedure Technologist Supporting Staff Performing Physician US Endoscopic Appointment Date/Status Modality Department Priority and Order Details Priority Class Routine Off Site Comments Clinical Hx: Evaluating abnormalities of the GI tract wall or adjacent structures 1. Is the patient on Coumadin? No 2. Is the patient on Plavix? No 3. Is the patient on Pradaxa No Order Questions Question Answer What is the Reason for Study? diabetes, abdominal pain Where is this test being performed? [facility] Future Order Information Expected Expires 09/21/2024 09/21/2025 Associated Diagnoses Pain of upper abdomen [R10.10] Reference Links Status of Other Orders View Status of Other Orders Encounter View Encounter Reprint Requisition US ENDOSCOPIC (Order #[id number]) on 08/22/24 Tracking Links Cosign Tracking Order Transmittal Tracking * Telephone Encounter - Alyssa Ramires OSA - 08/22/2024 4:12 PM EST Images from the original note were not included. Order EGD, FLEXIBLE, DIAGNOSTIC [[id number]] (Order [id number]) Order Information Date and Time Department Ordering/Authorizing 08/22/2024 2:16 PM Gastro [place] Brook Steiner DO Order Providers Authorizing Provider Encounter Provider ([id number]) Brook Steiner DO ([id number]) Brook Steiner DO Collection Information Priority and Order Details Priority Class Routine Off Site Quantity Ordering Quantity 1 Order Questions Question Answer Procedure Location: [place] Facility: ENDO [facility] Comments This order is for a procedure only. If you are referring the patient to Gastroenterology, please place the appropriate referral. Abdominal pain, last EGD stomach full of food With EUS Associated Diagnoses Pain of upper abdomen [R10.10] Status of Other Orders View Status of Other Orders Encounter View Encounter Reprint Requisition EGD, FLEXIBLE, DIAGNOSTIC (Order #[id number]) on 08/22/24 Tracking Links Cosign Tracking Order Transmittal Tracking documented in this encounter Plan of Treatment Upcoming Encounters Date Type Department Care Team (Latest Contact Info) Description 2:30 PM EST Office Visit [address] [place] [address] [facility] [address] [place] [address] 4 9:45 AM EST Scheduled Telephone Care Coordination and Integration [address] [place] [address] Jaye Roberts, Community Health Hand Reamer [address] [place] [address] 4 7:40 AM EST Office Visit Nutrition & Weight Management, [place] [address] [place] [address] Elaina Mendoza CRNP [address] [place] [address] 4 10:40 AM EST Office Visit Pharmacy, [place] [address] [place] [address] [facility] [address] [place] [address] 5 11:00 AM EST Hospital Encounter ENDO [facility], Endoscopy [address], [address], [address] [place] [address] Bipin Moss MD [address] [place] [address] 5 11:00 AM EST - 5 12:30 PM EST Surgery ENDO [facility], Endoscopy [address], [address], [address] [place] [address] Bipin Moss MD [address] [place] [address] ESOPHAGOGASTRODUODENOSCOPY (EGD), FLEXIBLE, TRANSORAL, DIAGNOSTIC 5 8:00 AM EST Office Visit [facility] [address] [place] [address] Velasquez Valencia MD [address] [place] [address] 10:00 AM EDT Office Visit Pulmonary Medicine, [facility] [address] [facility] [place] [address] Vishal Wallace MD [address] [facility] [id number] Scheduled Procedures Name Priority Associated Diagnoses Date/Ti [...] this encounter Medical Devices Implanted Type Area Anesthesia Assistant Device Identifier Shelf Expiration Date Model / Serial / Lot Suture [place] Dbl Load 4.75mm - [id number] Implanted:Qty: 1 on 12/01/2019 by Judith Condon, DO at OR [facility] Right: Shoulder [employer] 07/17/2021 AR-2324BCT -2 / / [id number] Suture [place] Dbl Load 5.5mm - [id number] Implanted:Qty: 1 on 12/01/2019 by Judith Condon, DO at OR [facility] Right: Shoulder [employer] 09/16/2021 AR-2323BCT -2 / / [id number] documented as of this encounter Advance Directives [...] Advance Directives occurred with: Patient Care Teams Real Estate Services Administrator Relationship Specialty Start Date End Date Velasquez Valencia MD [address] [place] [address] PCP - General Family Medicine 09/09/22 documented as of this encounter
--- OUTSIDE RECORDS SUMMARY | 2024-09-15 11:00 | External Medical Summary | Summary of Care ---
Author Name Unknown Organization [facility] Address [address] [facility] [place] [address] Phone [phone] Care Team Providers Care Manager Commission Name Role Phone Velasquez Valencia MD Primary Care Provider +1- [phone] Reason for Visit * Reason Comments Dosage Adjustment In Person (Anticoag Cl inic) Diabetes Follow-Up Encounter Details Date Type Department Care Team (Late st Contact Info) Description 08/28/2024 2:30 PM EST Office Visit Pharmacy, [place] [address] [place] [address] [facility] [address] [place] [address] Type 2 diabetes mellitus with hemoglobin A1c goal of less than 7.0% ([facility])* Allergies Active Allergy Reactions Criticality Noted Date Comments Pioglitazone 07/19/2024 Cefaclor Unknown 07/26/2018 As child Empagliflozin Other (Please comment) 05/16/2021 DKA with hospitalization Nsaids High 04/19/2019 Gastric problems Other Reaction(s): gastroparesis, kidney problems, use with caution : hx esophagus damage documented as of this encounter (statuses as of 08/28/2024) Medications Polyethylene Glycol 3350 17 GM Oral Packet (Miralax) Mix 1 Packet in 4 to 8 ounces of any beverage and drink by mouth in the morning. 14 Each 11/05/2023 11:40 AM EST 4 Active Ondansetron HCl 4 MG Oral [...] 9:12 AM EDT 4 Active Omnipod 5 [id number] Intro Gen 5 KitIndications:T ype 2 diabetes mellitus with hemoglobin A1c goal of less than 7.0% (HCC) Use as directed- bring this to visit on Sep 18 1 Kit 08/25/2024 1:11 PM EST 4 Active Omnipod 5 [id number] Pods Gen 5Indications:Typ e 2 diabetes mellitus [...] as of this encounter (statuses as of 08/28/2024) Active Problems Problem Noted Date Diagnosed Date [...] as of this encounter (statuses as of 08/28/2024) Resolved Problems Problem Noted Date Diagnosed Date [...] as of this encounter (statuses as of 08/28/2024) Immunizations Name Administration Dates Next Due COVID-19 mRNA, LNP-s, No Pre serve, 2-Dose Series (Embark) 10/21/2021,03/01/2021,02/07/2021 H1N1 2009 Influenza, IM 11/04/2009 Pneumococcal Conjugate Vacci ne, 20-valent ([id number]) 07/09/2023 Pneumococcal Polysaccharide PPV23 (Pneumovax) 11/03/2015,02/09/2006 Seasonal [...] 08/15/2024 Does the household have a re lar [...] of Assessment Author Yes 04/10/2024 9:27 PM EDAlicia Diaz RN documented as of this encounter Mental Status * Because of a physical, mental, or emotional condition, do you have serious difficulty concentrating, remembering, or making decisions? (5 years old or older) Answer Entry Date Author No 04/10/2024 9:27 PM Alicia Lazaro RN documented in this encounter Progress Notes * Gisel Butler RPh - 08/28/2024 2:37 PM EST Medication Therapy Disease [facility] - Diabetes Management Progress Note Bry Akhtar Jr., identified by name and date of , is a 48 year old male being seen for diabetes management/education. Patient presents for return diabetic visit. DIABETES: Current diabetic medications: INC Toujeo U300 48 units in AM and 48 units in PM Novolog 34 units with breakfast, and 22 units with lunch and 24 units with supper + 10 units with snacks + CF of 1:10 over 140 ASSESSMENT & PLAN: ICD-10-CM 1. Type 2 diabetes mellitus with hemoglobin A1c goal of less than 7.0% ([facility]) E11.9 Patient presented today with his nephew to set up his omnipod and glooko accounts with the help of MTM. I was able to set up both accounts, download necessary apps in preparation for omnipod 5 start on 09/18/2024. Pt reminded to bring intro kit, a pod, and a vial of novolog to visit in September. Patient remindedto skip his toujeo that morning. FOLLOW UP: Return to clinic in 3 weeks for OP5 start 09/18/2024 I spent a total of 30-39 minutes (exact time 38 mins) on the date of service in preparation, delivery, and documentation of the care provided to Bry Akhtar Jr. excluding any time spent in the performance of separately billed services. Gisel Butler RPh Clinical Pharmacist - Ventilation Equipment Tender Medication Therapy Management Clinic 08/28/2024, 2:37 PM documented in this encounter Plan of Treatment Upcoming Encounters Date Type Department Care Team (Latest Contact Info) Description 4 9:45 AM EST Scheduled Telephone Care Coordination and Integration [address] [place] [address] Jaye Roberts, Community Health Music Educator [address] [place] [address] 4 7:40 AM EST Office Visit Nutrition & Weight Management, [place] [address] [place] [address] Elaina Mendoza CRNP [address] [place] [address] 4 10:40 AM EST Office Visit Pharmacy, [place] [address] [place] [address] [facility] [address] [place] [address] 5 11:00 AM EST Hospital Encounter ENDO [facility], Endoscopy Suite, [address], [address] [place] [address] Bipin Moss MD [address] [place] [address] 5 11:00 AM EST - 5 12:30 PM EST Surgery ENDO [facility], Endoscopy [address], [address], [address] [place] [address] Bipin Moss MD [address] [place] [address] ESOPHAGOGASTRODUODENOSCOPY (EGD), FLEXIBLE, TRANSORAL, DIAGNOSTIC 5 8:00 AM EST Office Visit [facility] [address] [place] [address] Velasquez Valencia MD [address] [facility] [place] [address] 10:00 AM EDT Office Visit Pulmonary Medicine, [facility] [address] [place] [address] Vishal Wallace MD [address] [place] [phone] Scheduled Procedures Name Priority Associated Diagnoses Date/Ti [...] 04/19/2024 DISCUSS TOBACCO CESSATION (REFER TO SMARTSET #8037) 07/19/2025 07/19/2024, 10/16/2022 GFR 08/02/2025 08/02/2024, 07/18, [...] this encounter Medical Devices Implanted Type Area Recreation Facilities Supervisor Device Identifier Shelf Expiration Date Model / Serial / Lot Suture [place] Dbl Load 4.75mm - [id number] Implanted:Qty: 1 on 12/01/2019 by Judith Condon DO at [facility] Right: Shoulder [employer] 07/17/2021 AR-2324BCT -2 / / [id number] Suture [place] Dbl Load 5.5mm - [id number] Implanted:Qty: 1 on 12/01/2019 by Judith Condon DO at [facility] Right: Shoulder [employer] 09/16/2021 AR-2323BCT -2 / / [id number] documented as of this encounter Visit Diagnoses Diagnosis Type 2 diabetes mellitus with hemoglobin A1c goal of less than 7.0% ([facility])- Primary Pain of upper abdomen Abdominal pain, [...] Advance Directives occurred with: Patient Care Teams Manager Commission Relationship Specialty Start Date End Date Velasquez Valencia MD [address] [facility] [place] [address] PCP - General Family Medicine 09/09/22 documented as of this encounter
--- OUTSIDE RECORDS SUMMARY | 2024-09-15 11:00 | External Medical Summary | Summary of Care ---
Author Name Unknown Organization [facility] Address [address] [place] [address] Phone [phone] Care Team Providers Care Air Brush Operator Name Role Phone Velasquez Valencia MD Primary Care Provider +1- [phone] Encounter Details Date Type Department Care Team (Late st Contact Info) Description 08/22/2024 10:45 AM EST Scheduled Telephone Care Coordination and Integration [address] [place] [address] Jaye Roberts, Community Health Drug And Alcohol Counsellor [address] [place] [address] Allergies Active Allergy Reactions Criticality [...] hemoglobin A1c goal of less than 7.0% ([facility]) Use to check blood sugar once daily as needed 100 [address] 05/09/2024 Active OneTouch Delica Lancets 33GIndications:Typ e 2 diabetes mellitus with hemoglobin A1c goal of less than 7.0% ([facility]) Use to check blood sugars [...] Respimat 2.5 MCG/ACT Inhalation Aerosol Solution (Tiotropium [place] Monohydrate) Inhale 2 Puffs by mouth in [...] Patient not taking.Reported on 08/18/2024 Omnipod 5 [id number] Intro Gen 5 KitIndications:Typ e 2 diabetes mellitus with hemoglobin A1c goal of less than 7.0% (HCC) Use as directed- bring this to visit on Sep 18 1 Kit 08/18/2024 Active Omnipod 5 [id number] Pods Gen 5Indications:Type 2 diabetes mellitus with [...] mRNA, LNP-s, No Pre serve, 2-Dose Series (RenewData) 10/21/2021,03/01/2021,02/07/2021 H1N1 2009 Influenza, IM 11/04/2009 Pneumococcal Conjugate Vacci ne, 20-valent ([id number]) 07/09/2023 Pneumococcal Polysaccharide PPV23 (Pneumovax) 11/03/2015,02/09/2006 Seasonal [...] Progress Notes * Jaye Roberts, Community Health Drug And Alcohol Counsellor - 08/22/2024 11:59 AM EST Telemedicine visit: No Community Health Drug And Alcohol Counsellor ([facility]) documentation: [facility] outbound call to patient per Has PT 3 X a week Started using prosthetic- per patient it is going to be awhile to get comfortable wearing it SOB with exertion Denies Swelling Last weight taken was [address] Olivares's office Patient is trying to get with [facility] to set up scales states he has so many appointments its been hardto connect Patient was going to Dr summers in [place] today Jaye Roberts [facility] Community Health Worker Call or Text- [phone] documented in this encounter Plan of Treatment Upcoming Encounters Date Type Department Care Team (Late st Contact Info) Description 08/22/2024 1:50 PM EST Office Visit Gastroenterology, [place] [address] [place] [address] Brook Steiner DO [address] [place] [address] Acute pancreatitis, unspecified complication status, unspecified pancreatitis type 08/28/2024 2:30 PM EST Office Visit Pharmacy, [place] [address] [place] [address] [facility] [address] [place] [address] 08/29/2024 9:45 AM EST Scheduled Telephone Care Coordination and Integration [address] [place] [address] Jaye Roberts, Community Health Drug And Alcohol Counsellor [address] [place] [address] 09/18/2024 10:40 AM EST Office Visit Pharmacy, [place] [address] [place] [address] [facility] [address] [place] [address] 11/23/2024 8:00 AM EST [facility] [address] [place] [address] Velasquez Valencia MD [address] [place] [address] 07/09/2025 10:00 AM EDT Office Visit Pulmonary Medicine, [facility] [address] [facility] [place] [id number] Vishal Wallace MD [address] [place] [phone] Scheduled Procedures Name Priority Associated Diagnoses Date/Ti [...] 04/19/2024 DISCUSS TOBACCO CESSATION (REFER TO SMARTSET #2833) 07/19/2025 07/19/2024, 10/16/2022 GFR 08/02/2025 08/02/2024, 07/18, [...] encounter Medical Devices Implanted Type Area Manager Epic Device Identifier Shelf Expiration Date Model / Serial / Lot Suture [place] Dbl Load 4.75mm - [id number] Implanted:Qty: 1 on 12/01/2019 by Judith Condon, at [facility] Right: Shoulder [employer] 07/17/2021 AR-2324BCT -2 / / [id number] Suture [place] Dbl Load 5.5mm - [id number] Implanted:Qty: 1 on 12/01/2019 by Judith Condon, at [facility] Right: Shoulder [employer] 09/16/2021 AR-2323BCT -2 / / [id number] documented as of this encounter Advance Directives [...] Advance Directives occurred with: Patient Care Teams Air Brush Operator Relationship Specialty Start Date End Date Velasquez Valencia MD [address] [facility] [place] [address] PCP - General Family Medicine 09/09/22 documented as of this encounter
--- OUTSIDE RECORDS SUMMARY | 2024-09-15 11:01 | External Medical Summary | Summary of Care ---
Author Name Unknown Organization [facility] Address [address] [facility] [place] [address] Phone [phone] Care Team Providers Care Exhibits Curator Name Role Phone Velasquez Valencia MD Primary Care Provider [phone] Reason for Visit * Reason Comments Hospital Follow-Up Pt is here for an ED follow up. Pt is having severe pain in stomach and back, reports having it for about 2 weeks. Reports that it isn't as bad in the evenings. Pt is vomiting from the pain.Pt would like to discuss getting into a rehab facility once the abdominal pain is taken care of. Encounter Details Date Type Department Care Team (Late st Contact Info) Description 07/31/2024 11:00 AM EDT Office Visit Merged With [facility] [address] [place] [address] Velasquez Valencia MD [address] [place] [address] Gastroparesis*; Constipation, unspecified constipation type; Gastroesophageal reflux disease without esophagitis; Type 2 diabetes mellitus with hemoglobin A1c goal of less than 7.0% ([facility]) Allergies Active Allergy Reactions Criticality Noted Date Comments Pioglitazone 07/19/2024 Cefaclor Unknown 07/26/2018 As child Empagliflozin Other (Please comment) 05/16/2021 DKA with hospitalization Nsaids High 04/19/2019 Gastric problems Other Reaction(s): gastroparesis, kidney problems, use with caution : hx esophagus damage documented as of this encounter (statuses as of 08/21/2024) Medications Medication Sig Dispensed Refills Start Date End Date Status Albuterol Sulfate HFA 108 (90 Base) MCG/ACT Inhalation Aerosol SolutionIndicati ons:RSV bronchitis inhale 2 puffs by mouth and INTO THE LUNGS every 6 hours if needed for cough shortness of breath or WITHDRAWAL SYMPTOMS 54 g 3 3 Active Additional Information Patient not taking.Reported on 08/02/2024 Metamucil 0.52 GM Oral Capsule (Psyllium) Take 1 Capsule by mouth in the morning and 1 Capsule at noon and 1 Capsule before bedtime. 30 Capsule 4 Active Additional Information Patient not taking.Reported on 08/07/2024 Polyethylene Glycol 3350 17 GM Oral Packet (Miralax) Mix 1 Packet in 4 to 8 ounces of any beverage and drink by mouth in the morning. 14 Each 4 Active Additional Information Patient not taking.Reported on 08/18/2024 Ondansetron HCl 4 MG Oral Tablet Take 1 Tablet by mouth every 8 hours as needed for Nausea. 20 Tablet 4 Active Additional Information Patient not taking.Reported on 08/18/2024 Aspirin 81 MG Oral Tablet Delayed Release Take 1 Tablet by mouth in the morning. 90 Tablet 3 4 Active Additional Information Patient not taking.Reported on 08/18/2024 Metoprolol Succinate ER 100 MG Oral Tablet Extended Release 24 Hour (toPROL XL)Indications:H TN, goal below 140/90 Take 1 tab by mouth twice per day 180 Tablet 3 4 Active Additional Information Patient not taking.Reported on 08/18/2024 Timmy Resendez 300 UNIT/ML Subcutaneous Solution Pen-injector (Insulin Glargine (1 Unit Dial))Indication s:Type 2 diabetes mellitus with hemoglobin A1c goal of less than 7.0% ([facility]) Inject 40 units twice daily- this replaces lantus 54 mL 4 4 Active Additional Information Patient [...] mL 4 4 Active Additional Information Patient not taking.Reported on 08/18/2024 traMADol HCl 50 MG Oral Tablet (Ultram)Indicati ons:Abdominal pain, epigastric Take 1 Tablet by mouth every 6 hours as needed for Pain, Severe. 40 Tablet 4 Active Additional Information Patient not taking.Reported on 08/18/2024 traMADol HCl 50 MG Oral Tablet (Ultram)Indicati ons:Abdominal pain, generalized,Thurman adrianna limb pain (HCC) Take 1 Tablet by mouth every 6 hours as needed for Pain, Severe. Take 1-2 tabs by mouth every 6 hours as needed for severe pain in want to do it due 8 it has been 80 Tablet 4 Active Additional Information Patient not taking.Reported [...] of water. 510 g 5 4 Active Additional Information Patient not taking.Reported on 08/18/2024 Atorvastatin Calcium 20 MG Oral Tablet (Lipitor) Take 1 Tablet by mouth in the morning. 90 Tablet 3 4 Active Additional Information Patient not taking.Reported on 08/18/2024 OneTouch Verio In Vitro Strip (Glucose Blood)Indication s:Type 2 diabetes mellitus with hemoglobin A1c goal of less than 7.0% (HCC) Use to check blood sugar once daily as needed 100 Strip 4 Active OneTouch Delica Lancets 33GIndications:T ype 2 diabetes mellitus with hemoglobin A1c goal of less than 7.0% (HCC) Use to check blood sugars once daily as needed 100 Each 4 Active Gabapentin 100 MG Oral Capsule (Neurontin)Indic ations:Neuropath y TAKE 2 CAPSULES BY MOUTH EVERY 12 HOURS 120 Capsule 3 4 Active Additional Information Patient not taking.Reported on 08/18/2024 oxyCODONE HCl 5 MG Oral Tablet (Oxy IR)Indications:L umbar disc herniation Take 1 Tablet by mouth every 8 hours as needed for Pain, Severe. 20 Tablet 4 Active Additional Information Patient not taking.Reported on 08/18/2024 Pantoprazole Sodium 40 MG Oral Tablet Delayed Release (Protonix) TAKE 1 TABLET BY MOUTH TWICE A DAY 180 Tablet 3 4 Active Additional Information Patient not taking.Reported on 08/18/2024 Famotidine 20 MG Oral Tablet (Pepcid) TAKE ONE TABLET BY MOUTH NIGHTLY AT BEDTIME 90 Tablet 3 4 Active Additional Information Patient not taking.Reported on 08/18/2024 Spiriva Respimat 2.5 MCG/ACT Inhalation Aerosol Solution (Tiotropium [place] Monohydrate) Inhale 2 Puffs by mouth in the morning. 1 Each 2 4 10/02/20 24 Active Additional Information Patient not taking.Reported on 08/18/2024 Dexcom G6 SensorIndication s:Type 2 diabetes mellitus with hemoglobin A1c goal of less than 7.0% (HCC) Use as directed every 10 days. 9 Each 5 4 Active Dexcom G6 TransmitterIndic ations:Type 2 diabetes mellitus with hemoglobin A1c goal of less than 7.0% (HCC) Use as directed. Change every 90 days 1 Each 5 4 Active Torsemide 10 MG Oral Tablet (Demadex)Indicat ions:Acute on chronic diastolic heart failure (HCC) Take 2 tabs by mouth daily 180 Tablet 3 4 Active Additional Information Patient not taking.Reported on 08/18/2024 Spironolactone 25 MG Oral Tablet (Aldactone) Take 1 Tablet by mouth in the morning. 90 Tablet 3 4 08/21/20 24 Discontinued Lidocaine 4 % External Patch (Aspercreme) Place 1 Patch over 12 hours topically on the skin in the morning. 30 Patch 4 08/07/20 24 Discontinued(Me dication List Clean Up) Metoclopramide HCl 10 MG Oral Tablet (Reglan) take 1 tablet by mouth three times a day 30 MINUTES before MEALS 270 Tablet 1 4 08/07/20 24 Discontinued(Me dication List Clean Up) Movantik 25 MG Oral Tablet (Naloxegol Oxalate) take 1 tablet by mouth in the morning 30 Tablet 5 4 08/07/20 24 Discontinued(Me dication List Clean Up) Cyclobenzaprine HCl 10 MG Oral Tablet (Flexeril)Indica tions:Lumbar disc herniation TAKE 1 TABLET BY MOUTH AT BEDTIME ONLY NEEDED 30 Tablet 4 08/07/20 24 Discontinued(Me dication List Clean Up) metFORMIN HCl 500 MG Oral Tablet (Glucophage)Yanet cations:Type 2 diabetes mellitus with hemoglobin A1c goal of less than 7.0% (HCC) Take 2 Tablets by mouth in the morning and 2 Tablets in the evening. 360 Tablet 3 4 08/18/20 24 Discontinued(En d of Procedure) Losartan Potassium 50 MG Oral Tablet (Cozaar) Take 1 Tablet by mouth in the morning and 1 Tablet before bedtime. 4 08/21/20 24 Discontinued Terazosin HCl 1 MG Oral Capsule (Hytrin) Take 1 Capsule by mouth at bedtime. 4 08/21/20 24 Discontinued Dicyclomine HCl 10 MG Oral Capsule (Bentyl) TAKE 1 CAPSULE BY MOUTH FOUR TIMES DAILY 360 Capsule 1 4 08/07/20 24 Discontinued(Me dication List Clean Up) documented as of this encounter (statuses as of 08/21/2024) Active Problems Problem Noted Date Diagnosed Date [...] as of this encounter (statuses as of 08/21/2024) Resolved Problems Problem Noted Date Diagnosed Date [...] as of this encounter (statuses as of 08/21/2024) Immunizations Name Administration Dates Next Due COVID-19 mRNA, LNP-s, No Pre serve, 2-Dose Series (Dr. Jerry's Smooth Move) 10/21/2021,03/01/2021,02/07/2021 H1N1 2009 Influenza, IM 11/04/2009 Pneumococcal Conjugate Vacci ne, 20-valent ([id number]) 07/09/2023 Pneumococcal Polysaccharide PPV23 (Pneumovax) 11/03/2015,02/09/2006 Seasonal [...] Sign Reading Time Taken Comments Blood Pressure 140/82 07/31/2024 11:30 AM EDT Pulse 100 07/31/2024 11:30 AM EDT Temperature 36.6 C (97.8 F) 07/31/2024 1 1:30 AM EDT Respiratory Rate 16 07/31/2024 11:3 0 AM EDT Oxygen Saturation 92% 07/31/2024 11: 30 AM EDT Inhaled Oxygen Concentration - - Weight 156.2 kg (344 lb 6.4 oz) 024 11:30 AM EDT Height 188 cm (6' 2") 07/31/2024 11:30 AM EDT Body Mass Index 44.22 07/31/2024 11:30 AM EDT documented in this encounter Functional [...] Progress Notes * Velasquez Valencia MD - 08/21/2024 8:45 PM EST Subjective: Bry Akhtar Jr. is a 48 year old male here today for Chief Complaint Patient presents with Hospital Follow-Up Pt is here for an ED follow up. Pt is having severe pain in stomach and back, reports having it forabout 2 weeks. Reports that it isn't as bad in the evenings. Pt is vomiting from the pain. Pt would like to discuss getting into a rehab facility once the abdominal pain is taken care of. Pt presents for ED follow up. He is having significant difficulties with abd pain and back pain. Has had vomiting associated with the pain. Has known gastroparesis and his pain has been attributed tothat. Is requesting that he be admitted for work up. Scheduled for EUS in a few days. 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 Current use of insulin ([facility]) 09/13/2017 DDD (degenerative disc disease), [...] 5 years/COLONOSCOPY FLEXIBLE PROXIMAL DIAGNOSTIC performed by Macrela Del Valle MD at OR [facility] EGD, FLEXIBLE, DIAGNOSTIC 10/17/2014 mild-mod inflammation, repeat 1-2 mo/[facility] EGD, FLEXIBLE, DIAGNOSTIC 04/17/2015 normal bx/inpt [facility] EGD, FLEXIBLE, DIAGNOSTIC 05/08/2019 reflux esophagitis, gastritis, duodenitis, repeat 6 wks / [facility] EGD, FLEXIBLE, DIAGNOSTIC 08/18/2019 normal-EGD/[place] EGD, FLEXIBLE, DIAGNOSTIC N/A 05/02/2020 biopsies normal/EGD EGD, FLEXIBLE, DIAGNOSTIC N/A 02/22/2024 antral gastritis/biopsies normal/ESOPHAGOGASTRODUODENOSCOPY (EGD), FLEXIBLE, TRANSORAL, DIAGNOSTIC performed by Marcela Del Valle MD at [facility] EGD, FLEXIBLE, DIAGNOSTIC N/A 08/02/2024 ESOPHAGOGASTRODUODENOSCOPY (EGD), FLEXIBLE, TRANSORAL, DIAGNOSTIC performed by Belen Jones DOat OR [facility] INJECT DX/THER SUBSTANCE INTERLAMINAR CERVICAL/THORACIC [...] cough shortness of breath or WITHDRAWAL SYMPTOMS (Patient not taking: Reported on 08/02/2024) 54 g 3 Metamucil 0.52 GM Oral Capsule (Psyllium) Take 1 Capsule by mouth in the morning and 1 Capsule at noon and 1 Capsule before bedtime. (Patient not taking: Reported on 08/07/2024) 30 Capsule 0 Polyethylene Glycol 3350 17 GM Oral Packet (Miralax) Mix 1 Packet in 4 to 8 ounces of any beverage and drink by mouth in the morning. (Patient not taking: Reported on 08/18/2024) 14 Each 0 Ondansetron HCl 4 MG Oral Tablet Take 1 Tablet by mouth every 8 hours as needed for Nausea. (Patient not taking: Reported on 08/18/2024) 20 Tablet 0 Aspirin 81 MG Oral Tablet Delayed Release Take 1 Tablet by mouth in the morning. (Patient not taking: Reported on 08/18/2024) 90 Tablet 3 Metoprolol Succinate ER 100 MG Oral Tablet Extended Release 24 Hour (toPROL XL) Take 1 tab by mouthtwice per day (Patient not taking: Reported on 08/18/2024) 180 Tablet 3 Toujeo SoloStar 300 UNIT/ML [...] 150. Max daily dose of 115 units(Patient not taking: Reported on 08/18/2024) 120 mL 4 traMADol HCl 50 MG Oral Tablet (Ultram) Take 1 Tablet by mouth every 6 hours as needed for Pain, Severe. (Patient not taking: Reported on 08/18/2024) 40 Tablet 0 traMADol HCl 50 MG Oral Tablet (Ultram) Take 1 Tablet by mouth every 6 hours as needed for Pain, Severe. Take 1-2 tabs by mouth every 6 hours as needed for severe pain in want to do it due 8 it has been (Patient not taking: Reported on 08/18/2024) 80 Tablet 0 Polyethylene Glycol 3350 17 GM/SCOOP Oral Powder (Miralax) Take 1 scoop daily in 8 ounces of water.(Patient not taking: Reported on 08/18/2024) 510 g 5 Atorvastatin Calcium 20 MG Oral Tablet (Lipitor) Take 1 Tablet by mouth in the morning. (Patient not taking: Reported on 08/18/2024) 90 Tablet 3 OneTouch Verio In Vitro Strip (Glucose Blood) Use to check blood sugar once daily as needed 100 Strip 0 OneTouch Delica Lancets 33G Use to check blood sugars once daily as needed 100 Each 0 Gabapentin 100 MG Oral Capsule (Neurontin) TAKE 2 CAPSULES BY MOUTH EVERY 12 HOURS (Patient not taking: Reported on 08/18/2024) 120 Capsule 3 oxyCODONE HCl 5 MG Oral Tablet (Oxy IR) Take 1 Tablet by mouth every 8 hours as needed for Pain, Severe. (Patient not taking: Reported on 08/18/2024) 20 Tablet 0 Pantoprazole Sodium 40 MG Oral Tablet Delayed Release (Protonix) TAKE 1 TABLET BY MOUTH TWICE A DAY(Patient not taking: Reported on 08/18/2024) 180 Tablet 3 Famotidine 20 MG Oral Tablet (Pepcid) TAKE ONE TABLET BY MOUTH NIGHTLY AT BEDTIME (Patient not taking: Reported on 08/18/2024) 90 Tablet 3 Spiriva Respimat 2.5 MCG/ACT Inhalation Aerosol Solution (Tiotropium [place] Monohydrate) Inhale 2 Puffs by mouth in the morning. (Patient not taking: Reported on 08/18/2024) 1 Each 2 Dexcom G6 Sensor Use as directed every 10 days. 9 Each 5 Dexcom G6 Transmitter Use as directed. Change every 90 days 1 Each 5 Torsemide 10 MG Oral Tablet (Demadex) Take 2 tabs by mouth daily (Patient not taking: Reported on 08/18/2024) 180 Tablet 3 Alum & Mag Hydroxide-Simeth 400-400-40 MG/5ML Oral Suspension (Mi-Acid II) Take 15 ml every 6 hours as needed for constipation (Patient not taking: Reported on 08/18/2024) 355 mL 3 Omnipod 5 [id number] Intro Gen 5 Kit Use as directed- bring this to visit on Sep 18 1 Kit 0 Omnipod 5 [id number] Pods Gen 5 Use as directed. Change pod every 2 days 45 Each 3 Insulin Aspart 100 UNIT/ML Injection Solution (NovoLOG) Inject up to 120 units daily using Omnipod 5 120 mL 4 Haloperidol 1 MG Oral Tablet (Haldol) Terazosin HCl 1 MG Oral Capsule (Hytrin) TAKE 1 CAPSULE BY MOUTH AT BEDTIME 30 Capsule 5 Spironolactone 25 MG Oral Tablet (Aldactone) TAKE 1 TABLET BY MOUTH EVERY MORNING 30 Tablet 5 Losartan Potassium 50 MG Oral Tablet (Cozaar) TAKE 1 TABLET BY MOUTH TWICE DAILY 60 Tablet 5 Torsemide 20 MG Oral Tablet (Demadex) TAKE 1 TABLET BY MOUTH EVERY MORNING 30 Tablet 5 No current facility-administered medications for this visit. Objective: BP 140/82 | Pulse 100 | Temp 36.6 C (97.8 F) (Tympanic) | Resp 16 | Ht 1.88 m (6' 2") | Wt (!) 156.2 kg (344 lb 6.4 oz) | SpO2 92% | BMI 44.22 kg/m | BSA 2.86 m GEN: NAD HEENT: Benign NECK: Supple with no LAD, TM, JVD CHEST: CTA B CV: RRR ABD: Soft, NT/ND, No HSM, NABS EXT: No c,c,e Assessment and Plan: Gastroparesis (Primary) Constipation, unspecified constipation type Gastroesophageal reflux disease without esophagitis Type 2 diabetes mellitus with hemoglobin A1c goal of less than 7.0% ([facility]) -continue current treatments -discussed that we have not had any findings to justify admission. -proceed with EUS as planned. -call with new or worsening symptoms. 30 min with pt and chart review Velasquez Valencia MD documented in this encounter Nursing Notes * Emily Wang MED ASSIST - 07/31/2024 11:38 AM EDT The patient has been properly identified by confirmation of name and date of . Chief Complaint Patient presents with Hospital Follow-Up Pt is here for an ED follow up. Pt is having severe pain in stomach and back, reports having it forabout 2 weeks. Reports that it isn't as bad in the evenings. Pt is vomiting from the pain. Pt would like to discuss getting into a rehab facility once the abdominal pain is taken care of. documented in this encounter Plan of Treatment Upcoming Encounters Date Type Department Care Team (Late st Contact Info) Description 08/22/2024 10:45 AM EST Scheduled Telephone Care Coordination and Integration [address] [place] [address] Jaye Roberts, [facility] [employer] [address] [place] [address] 08/22/2024 1:50 PM EST Office Visit Gastroenterology, [place] [address] [place] [address] Brook Steiner DO [address] [place] [address] Acute pancreatitis, unspecified complication status, unspecified pancreatitis type 08/28/2024 2:30 PM EST Office Visit Pharmacy, [place] [address] [place] [address] [facility] [address] [place] [address] 08/29/2024 9:45 AM EST Scheduled Telephone Care Coordination and Integration [facility] [place] [address] Jaye Roberts, [facility] [employer] [address] [facility] [address] 09/18/2024 10:40 AM EST Office Visit Pharmacy, [facility] [address] [place] [address] [facility] [address] [place] [address] 11/23/2024 8:00 AM EST Office Visit Family Practice, [facility] [address] [place] [address] Velasquez Valencia MD [address] [place] [address] 07/09/2025 10:00 AM EDT Office Visit Pulmonary Medicine, [facility] [address] [facility] [place] [address] Vishal Wallace MD [address] [place] [address] Scheduled Procedures Name Priority Associated Diagnoses Date/Ti [...] this encounter Medical Devices Implanted Type Area Fun House Operator Device Identifier Shelf Expiration Date Model / Serial / Lot Suture [place] Dbl Load 4.75mm - [id number] Implanted:Qty: 1 on 12/01/2019 by Judith Condon, DO at OR [facility] Right: Shoulder [employer] 07/17/2021 AR-[id number] -2 / / [id number] Suture [place] Dbl Load 5.5mm - [id number] Implanted:Qty: 1 on 12/01/2019 by Judith Condon, at OR [facility] Right: Shoulder [employer] 09/16/2021 [id number] -2 / / [id number] documented as of this encounter Visit Diagnoses Diagnosis Gastroparesis- Primary Constipation, unspecified constipation type Gastroesophageal reflux disease without esophagitis Esophageal reflux Type 2 diabetes mellitus with hemoglobin A1c goal of less than 7.0% ([facility]) Acute pancreatitis, unspecified complication status, unspecified pancreatitis type documented in this encounter Advance Directives * [...] Advance Directives occurred with: Patient Care Teams Exhibits Curator Relationship Specialty Start Date End Date Velasquez Valencia MD [address] [place] [address] PCP - General Family Medicine 09/09/22 documented as of this encounter
--- OUTSIDE RECORDS SUMMARY | 2024-09-15 11:01 | External Medical Summary | Summary of Care ---
Author Name Unknown Organization [facility] Address [address] [facility] [address] Phone [phone] Care Team Providers Care Community Health Program Coordinator Name Role Phone Velasquez Valencia MD Primary Care Provider +1- [phone] Reason for Visit * Reason Onset Date Comments Medication Pre-auth 08/18/2024 Omnipod pods Encounter Details Date Type Department Care Team (Late st Contact Info) Description 08/18/2024 Telephone [facility] [address] [place] [address] Velasquez Valencia MD [address] [place] [address] Medication Pre-auth (Omnipod pods) Allergies Active Allergy Reactions Criticality Noted Date [...] Information Patient not taking.Reported on 08/18/2024 Timmy SolEllear 300 UNIT/ML Subcutaneous Solution Pen-injector (Insulin Glargine (1 Unit Dial))Indications :Type 2 diabetes mellitus with hemoglobin A1c goal of less than 7.0% ([facility]) Inject 40 units twice daily- this replaces lantus 54 mL 4 4 Active Additional Information Patient taking differently: Inject 48 units twice daily- this replaces lantus, Reported on 08/18/2024 BD Pen Needle Short U/F 31G X 8 MM (Insulin Pen Needle)Indication s:Type 2 diabetes mellitus with hemoglobin A1c goal of less than 7.0% ([facility]) Use to inject insulin 5 times daily 500 Each 3 4 Active Insulin Aspart FlexPen 100 UNIT/ML Subcutaneous Solution Pen-injectorIndic ations:Type 2 diabetes mellitus with hemoglobin A1c goal of less than 7.0% ([facility]) Inject 32 units with breakfast 22 units with lunch and 22 units with supper plus CF of 1:12 over 150. Max daily dose of 115 units 120 mL 4 4 Active Additional Information Patient not taking.Reported on 08/18/2024 traMADol HCl 50 MG Oral Tablet (Ultram)Indicatio ns:Abdominal pain, epigastric Take 1 Tablet by mouth every 6 hours as needed for Pain, Severe. 40 Tablet 4 Active Additional Information Patient not taking.Reported on 08/18/2024 traMADol HCl 50 MG Oral Tablet (Ultram)Indicatio [...] 08/18/2024 OneTouch Verio In Vitro Strip (Glucose Blood)Indications [...] Respimat 2.5 MCG/ACT Inhalation Aerosol Solution (Tiotropium [place] Monohydrate) Inhale 2 Puffs by mouth in the morning. 1 Each 2 4 10/02/20 24 Active Additional Information Patient not taking.Reported on 08/18/2024 Dexcom G6 SensorIndications :Type 2 diabetes mellitus with hemoglobin A1c goal of less than 7.0% (HCC) Use as directed every 10 days. 9 Each 5 4 Active Dexcom G6 TransmitterIndica tions:Type 2 diabetes mellitus with hemoglobin A1c goal of less than 7.0% (HCC) Use as directed. Change every 90 days 1 Each 5 4 Active Torsemide 10 MG Oral Tablet (Demadex)Indicati ons:Acute on chronic diastolic heart failure (HCC) Take 2 tabs by mouth daily 180 Tablet 3 4 Active Additional Information Patient not taking.Reported on 08/18/2024 Omnipod 5 [id number] Intro Gen 5 KitIndications:Ty pe 2 diabetes mellitus with hemoglobin A1c goal of less than 7.0% (HCC) Use as directed- bring this to visit on Sep 18 1 Kit 4 Active Omnipod 5 [id number] Pods Gen 5Indications:Type 2 diabetes mellitus with hemoglobin A1c goal of less than 7.0% (HCC) Use as directed. Change pod every 2 days 45 Each 3 4 Active Insulin Aspart 100 UNIT/ML Injection Solution (NovoLOG)Indicati ons:Type 2 diabetes mellitus with hemoglobin A1c goal of less than 7.0% (HCC) Inject up to 120 units daily using Omnipod 5 120 mL 4 4 Active Haloperidol 1 MG Oral Tablet (Haldol) 4 Active Spironolactone 25 MG Oral Tablet (Aldactone) Take 1 Tablet by mouth in the morning. 90 Tablet 3 4 08/21/20 24 Discontinued Losartan Potassium 50 MG Oral Tablet (Cozaar) Take 1 Tablet by mouth in the morning and 1 Tablet before bedtime. 4 08/21/20 24 Discontinued Terazosin HCl 1 MG Oral Capsule (Hytrin) Take 1 Capsule by mouth at bedtime. 4 08/21/20 24 Discontinued documented as of this encounter [...] mRNA, LNP-s, No Pre serve, 2-Dose Series (Tryouts) 10/21/2021,03/01/2021,02/07/2021 H1N1 2009 Influenza, IM 11/04/2009 Pneumococcal Conjugate Vacci ne, 20-valent ([id number]) 07/09/2023 Pneumococcal Polysaccharide PPV23 (Pneumovax) 11/03/2015,02/09/2006 Seasonal [...] Telephone Encounter - Gisel Butler RPh - 08/21/2024 1:26 PM EST Images from the original note were not included. * Telephone Encounter - Gisel Butler RPh - 08/18/2024 2:18 PM EDT Prior Authorization request details: Prior Auth ([facility]) ID: [id number] Drug/Service Name: OMNIPOD 5 [id number] PODS (GEN 5) Patient: ROBERT BARAJAS Date Requested: 08/18/2024 2:14:27 PM MemberID: [id number] : 1975 Follow up Wednesday to check status. Gisel Butler, PharmD, BCACP Clinical Pharmacist Medication Therapy Disease Management 08/18/2024, 2:18 PM * Telephone Encounter - Karina House CPhT - 08/18/2024 11:19 AM EDT Pharmacy calling to inform doctor that the patient's insurance will not pay for this medication without a completed prior authorization. Did confirm this information with the pharmacy. Pt's current insurance information is as follows: Patient name: Robert Barajas Jr. ID number: [id number] BIN number: [id number] PCN number: [id number] Group number: [id number] Subscriber name: Robert Barajas Jr. Primary or Secondary Insurance:Primary Medication: omnipod 5 dex g7g6 pods Reason for Request: qty limit [phone] per day Pharmacy and phone number: [facility] [phone] Rx plan and phone number: [facility] [phone] Is this a new medication for the patient? Yes What alternative medications does the pharmacy have in stock?: Thank you, Karina House CPhT Sweater Designer [facility] Services ([facility]) 08/18/2024, 11:20 AM documented in this encounter Plan of Treatment Upcoming Encounters Date Type Department Care Team (Late st Contact Info) Description 08/22/2024 10:45 AM EST Scheduled Telephone Care Coordination and Integration [address] [place] [address] Jaye Roberts, Community Health Senior Living Advisor [address] [place] [address] 08/22/2024 1:50 PM EST Office Visit Gastroenterology, [place] [address] [place] [address] Brook Steiner DO [address] [place] [address] Acute pancreatitis, unspecified complication status, unspecified pancreatitis type 08/28/2024 2:30 PM EST Office Visit Pharmacy, [address] [address] [place] [address] [place] [address] 08/29/2024 9:45 AM EST Scheduled Telephone Care Coordination and Integration [address] [place] [address] Jaye Roberts, Community Health Senior Living Advisor [address] [place] [address] 09/18/2024 10:40 AM EST Office Visit Pharmacy, [place] [address] [place] [address] [facility] [address] [place] [address] 11/23/2024 8:00 AM EST Office Visit Family Practice, [facility] [address] [place] [address] Velasquez Valencia MD [address] [place] [address] 07/09/2025 10:00 AM EDT Office Visit Pulmonary Medicine, [facility] [address] [facility] [place] [address] Vishal Wallace MD [address] [place] [phone] Scheduled Procedures Name Priority Associated Diagnoses Date/Ti [...] 04/19/2024 DISCUSS TOBACCO CESSATION (REFER TO SMARTSET #4173) 07/19/2025 07/19/2024, 10/16/2022 GFR 08/02/2025 08/02/2024, 07/18, [...] this encounter Medical Devices Implanted Type Area Assistant Chief Engineer Device Identifier Shelf Expiration Date Model / Serial / Lot Suture [place] Dbl Load 4.75mm - [id number] Implanted:Qty: 1 on 12/01/2019 by Judith Condon, at OR [facility] Right: Shoulder [employer] 07/17/2021 AR-2324BCT -2 / / [id number] Suture [place] Dbl Load 5.5mm - [id number] Implanted:Qty: 1 on 12/01/2019 by Judith Condon, at OR [facility] Right: Shoulder [employer] 09/16/2021 AR-2323BCT -2 / / [id number] documented as of this encounter Visit Diagnoses Diagnosis Type 2 diabetes mellitus with hemoglobin A1c goal of less than 7.0% ([facility])- Primary Acute pancreatitis, unspecified complication status, unspecified pancreatitis [...] Advance Directives occurred with: Patient Care Teams Community Health Program Coordinator Relationship Specialty Start Date End Date Velasquez Valencia MD [address] [place] [address] PCP - General Family Medicine 09/09/22 documented as of this encounter
--- OUTSIDE RECORDS SUMMARY | 2024-09-15 11:01 | External Medical Summary | Summary of Care ---
Author Name Unknown Organization [facility] Address [address] [facility] [address] Phone [phone] Care Team Providers Care Shrimp Packer Name Role Phone Velasquez Valencia MD Primary Care Provider +1- [phone] Reason for Visit * Reason Onset Date Comments Nurse Documentation 08/22/2024 Encounter Details Date Type Department Care Team (Late st Contact Info) Description 08/22/2024 Telephone [facility] [address] [place] [address] Velasquez Valencia MD [address] [place] [address] Nurse Documentation Allergies Active Allergy [...] Additional Information Patient not taking.Reported on 08/18/2024 Toujeo SoloStar 300 UNIT/ML Subcutaneous Solution Pen-injector [...] Respimat 2.5 MCG/ACT Inhalation Aerosol Solution (Tiotropium [place] Monohydrate) Inhale 2 Puffs by mouth in [...] Patient not taking.Reported on 08/18/2024 Omnipod 5 [id number] Intro Gen 5 KitIndications:Typ e 2 diabetes mellitus with hemoglobin A1c goal of less than 7.0% (HCC) Use as directed- bring this to visit on Sep 18 Kit 08/18/2024 Active Omnipod 5 [id number] Pods Gen 5Indications:Type 2 diabetes mellitus with [...] mRNA, LNP-s, No Pre serve, 2-Dose Series (Oesia) 10/21/2021,03/01/2021,02/07/2021 H1N1 2009 Influenza, IM 11/04/2009 Pneumococcal Conjugate Vacci ne, 20-valent ([id number]) 07/09/2023 Pneumococcal Polysaccharide PPV23 (Pneumovax) 11/03/2015,02/09/2006 Seasonal [...] Encounter - Emily Wang MED ASSIST - 08/22/2024 11:42 AM EST Received note from [employer] that states the following: "[facility], thank you for your order for the patient on 11-20. The supplier [employer] has made us aware that they spoke with this patient and he stated that he doesn't want the lift chair, please give us a call or fax back on how to proceed with this order." Brought to Dr Valencia's attention, he stated it was okay to cancel. [employer] was called and the order was cancelled. documented in this encounter Plan of Treatment Upcoming Encounters Date Type Department Care Team (Late st Contact Info) Description 08/22/2024 1:50 PM EST Office [facility], [place] [address] [facility] [address] Brook Steiner DO [address] [facility] [place] [address] Acute pancreatitis, unspecified complication status, unspecified pancreatitis type 08/28/2024 2:30 PM EST Office Visit Pharmacy, [place] [address] [place] [facility] [place] [address] [facility] [address] [place] [address] 08/29/2024 9:45 AM EST Scheduled Telephone Care Coordination and Integration [address] [place] [address] Jaye Roberts, Community Health Deicer Inspector Pneumatic [address] [place] [address] 09/18/2024 10:40 AM EST Office Visit Pharmacy, [place] [address] [place] [address] [facility] [address] [place] [address] 11/23/2024 8:00 AM EST [facility] [address] [place] [address] Velasquez Valencia MD [address] [place] [address] 07/09/2025 10:00 AM EDT Office Visit Pulmonary Medicine, [facility] [address] [facility] [place] [address] Vishal Wallace MD [address] [place] [phone] Scheduled Procedures Name Priority Associated Diagnoses Date/Ti [...] this encounter Medical Devices Implanted Type Area Warehouse Forklift Operator Device Identifier Shelf Expiration Date Model / Serial / Lot Suture [place] Dbl Load 4.75mm - [id number] Implanted:Qty: 1 on 12/01/2019 by Judith Condon DO at OR [facility] Right: Shoulder [employer] 07/17/2021 AR-2324BCT -2 / / [id number] Suture [place] Dbl Load 5.5mm - [id number] Implanted:Qty: 1 on 12/01/2019 by Judith Condon DO at OR [facility] Right: Shoulder [employer] 09/16/2021 AR-2323BCT -2 / / [id number] documented as of this encounter Advance Directives [...] Advance Directives occurred with: Patient Care Teams Shrimp Packer Relationship Specialty Start Date End Date Velasquez Valencia MD [address] [facility] [place] [address] PCP - General Family Medicine 09/09/22 documented as of this encounter
--- OUTSIDE RECORDS SUMMARY | 2024-09-15 11:01 | External Medical Summary | Summary of Care ---
Author Name Unknown Organization [facility] Address [address] [place] [address] Phone [phone] Care Team Providers Care Supervisor Shellfish Farming Name Role Phone Velasquez Valencia MD Primary Care Provider +1- [phone] Encounter Details Date Type Department Care Team (Late st Contact Info) Description 08/22/2024 10:45 AM EST Scheduled Telephone Care Coordination and Integration [address] [place] [address] Jaye Roberts, Community Health Anesthesiologist [address] [place] [address] Allergies Active Allergy Reactions Criticality [...] A1c goal of less than 7.0% ([facility]) Use to check blood sugar once daily as needed 100 Strip 05/09/2024 Active OneTouch Delica Lancets 33GIndications:Typ e 2 diabetes mellitus with hemoglobin A1c goal of less than 7.0% ([facility]) Use to check blood sugars once daily [...] Respimat 2.5 MCG/ACT Inhalation Aerosol Solution (Tiotropium [place] Monohydrate) Inhale 2 Puffs by mouth in [...] Patient not taking.Reported on 08/18/2024 Omnipod 5 [id number] Intro Gen 5 KitIndications:Typ e 2 diabetes mellitus with hemoglobin A1c goal of less than 7.0% (HCC) Use as directed- bring this to visit on Sep 18 1 Kit 08/18/2024 Active Omnipod 5 JdeF5N6 Pods Gen 5Indications:Type 2 diabetes mellitus with [...] mRNA, LNP-s, No Pre serve, 2-Dose Series ([employer]) 10/21/2021,03/01/2021,02/07/2021 H1N1 2009 Influenza, IM 11/04/2009 Pneumococcal Conjugate Vacci ne, 20-valent ([id number]) 07/09/2023 Pneumococcal Polysaccharide PPV23 (Pneumovax) 11/03/2015,02/09/2006 Seasonal [...] Progress Notes * Jaye Roberts, Community Health Anesthesiologist - 08/22/2024 11:59 AM EST Telemedicine visit: No Community Health Anesthesiologist (AGA) documentation: [facility] outbound call to patient per Has PT 3 X a week Started using prosthetic- per patient it is going to be awhile to get comfortable wearing it SOB with exertion Denies Swelling Last weight taken was [address] Olivares's office Patient is trying to get with [facility] to set up scales states he has so many appointments its been hardto connect Patient was going to Dr summers in [place] today Jaye Roberts [facility] Community Health Worker Call or Text- [phone] documented in this encounter Plan of Treatment Upcoming Encounters Date Type Department Care Team (Late st Contact Info) Description 08/22/2024 1:50 PM EST Office Visit Gastroenterology, [place] [address] [place] [address] Brook Steiner DO [address] [place] [address] Acute pancreatitis, unspecified complication status, unspecified pancreatitis type 08/28/2024 2:30 PM EST Office Visit Pharmacy, [place] [address] [place] [address] [facility] [address] [place] [address] 08/29/2024 9:45 AM EST Scheduled Telephone Care Coordination and Integration [address] [place] [address] Jaye Roberts, Community Health Anesthesiologist [address] [place] [address] 09/18/2024 10:40 AM EST Office Visit Pharmacy, [place] [address] [place] [address] [facility] [address] [place] [address] 11/23/2024 8:00 AM EST [facility] [address] [place] [address] Velasquez Valencia MD [address] [place] [address] 07/09/2025 10:00 AM EDT Office Visit Pulmonary Medicine, [facility] [address] [facility] [place] [id number] Vishal Wallace MD [address] [place] [id number] Scheduled Procedures Name Priority Associated Diagnoses Date/Ti [...] 04/19/2024 DISCUSS TOBACCO CESSATION (REFER TO SMARTSET #4120) 07/19/2025 07/19/2024, 10/16/2022 GFR 08/02/2025 08/02/2024, 07/18, [...] this encounter Medical Devices Implanted Type Area Vp Legal Affairs Device Identifier Shelf Expiration Date Model / Serial / Lot Suture [place] Dbl Load 4.75mm - [id number] Implanted:Qty: 1 on 12/01/2019 by Judith Condon, at OR [facility] Right: Shoulder [employer] 07/17/2021 AR-2324BCT -2 / / [id number] Suture [place] Dbl Load 5.5mm - [id number] Implanted:Qty: 1 on 12/01/2019 by Judith Condon, at OR [facility] Right: Shoulder [employer] 09/16/2021 AR-2323BCT -2 / / [id number] documented as of this encounter Advance Directives [...] Advance Directives occurred with: Patient Care Teams Supervisor [employer]fish Farming Relationship Specialty Start Date End Date Velasquez Valencia MD [address] [facility] [place] [address] PCP - General Family Medicine 09/09/22 documented as of this encounter
--- OUTSIDE RECORDS SUMMARY | 2024-09-15 11:02 | External Medical Summary | Summary of Care ---
Author Name Unknown Organization [facility] Address [address] [facility] [place] [address] Phone [phone] Care Team Providers Care Purchaser Name Role Phone Velasquez Valencia MD Primary Care Provider +1- [phone] Reason for Visit * Reason Onset Date Comments Advice 08/03/2024 Encounter Details Date Type Department Care Team (Late st Contact Info) Description 08/03/2024 Telephone [facility] [address] [place] [address] Velasquez Valencia MD [address] [place] [address] Advice Allergies Active Allergy Reactions [...] [facility]) Use to check blood sugar [...] Respimat 2.5 MCG/ACT Inhalation Aerosol Solution (Tiotropium [place] Monohydrate) Inhale 2 Puffs by mouth in the morning. 1 Each 2 4 10/02/20 24 Active Additional Information Patient not taking.Reported on 08/18/2024 Dexcom G6 SensorIndication s:Type 2 diabetes mellitus with hemoglobin A1c goal of less than 7.0% ([facility]) Use as directed every 10 days. 9 Each 5 4 Active Dexcom G6 TransmitterIndic ations:Type 2 diabetes mellitus with hemoglobin A1c goal of less than 7.0% ([facility]) Use as directed. Change every 90 days [...] mRNA, LNP-s, No Pre serve, 2-Dose Series (Teladoc) 10/21/2021,03/01/2021,02/07/2021 H1N1 2009 Influenza, IM 11/04/2009 Pneumococcal Conjugate Vacci ne, 20-valent ([id number]) 07/09/2023 Pneumococcal Polysaccharide PPV23 (Pneumovax) 11/03/2015,02/09/2006 Seasonal [...] Telephone Encounter - Velasquez Valencia MD - 08/21/2024 9:34 AM EST This was prescribed under a duplicate encounter. * Telephone Encounter - Starla La PHARM Tech - 08/04/2024 11:20 AM EDT Ni calling in to check on the request above. Says pt was prescribed Haldol for his Gastroparesis. She says this has bee the only thing that has worked for the pt and is asking if this can be sent in for him. Says if not this, then something similar that would work the same. Pt uses [id number] [place] [address] Thank You, Starla La CPhT Director Of Student Financial Aid II [facility] ([facility]) 08/04/2024, 11:27 AM * Telephone Encounter - Toshia Stern PHARM Tech - 08/03/2024 4:31 PM EDT Pt's ec calling to check the status of meds that were supposed to be prescribed by doctor. Advised pt's ec that Dr has to review orders and call them back. Transferred them over to Dr's office to tryand reach him. Thank you, Toshia Stern CPhT Wrister I [facility] ([facility]) 08/03/2024,4:32 PM * Telephone Encounter - Emily Moore OSA - 08/03/2024 8:55 AM EDT Patient was seen at [place] [facility] last evening 08/02 and scheduled for follow up appointment on Wednesday with Dr. Valencia. Requesting Dr. Valencia to review his record from the ER and prescribe the medication that was given to him at the ER (unable to provide the name of the medication) until he can come for his appointment. States this medication helped him a lot. documented in this encounter Plan of Treatment Upcoming Encounters Date Type Department Care Team (Late st Contact Info) Description 08/22/2024 10:45 AM EST Scheduled Telephone Care Coordination and Integration [address] [place] [address] Jaye Roberts, Community Health Director Of Nuclear Medicine [address] [place] [address] 08/22/2024 1:50 PM EST Office Visit Gastroenterology, [place] [address] [place] [address] Brook Steiner DO [address] [place] [address] Acute pancreatitis, unspecified complication status, unspecified pancreatitis type 08/28/2024 2:30 PM EST Office Visit Pharmacy, [place] [address] [place] [address] [facility] [address] [place] [address] 08/29/2024 9:45 AM EST Scheduled Telephone Care Coordination and Integration [address] [place] [address] Jaye Roberts, Community Health Director Of Nuclear Medicine [address] [place] [address] 09/18/2024 10:40 AM EST Office Visit Pharmacy, [place] [address] [place] [address] [facility] [address] [place] [address] 11/23/2024 8:00 AM EST Office Visit [facility] [address] [place] [address] Velasquez Valencia MD [address] [place] [address] 07/09/2025 10:00 AM EDT Office Visit Pulmonary Medicine, [facility] [address] [facility] [place] [address] Vishal Wallace MD [address] [place] [...] 04/19/2024 DISCUSS TOBACCO CESSATION (REFER TO SMARTSET #8234) 07/19/2025 07/19/2024, 10/16/2022 GFR 08/02/2025 08/02/2024, 07/18, [...] this encounter Medical Devices Implanted Type Area Space Engineer Device Identifier Shelf Expiration Date Model / Serial / Lot Suture [place] Dbl Load 4.75mm - [id number] Implanted:Qty: 1 on 12/01/2019 by Judith Condon DO at OR [facility] Right: Shoulder [employer] 07/17/2021 AR-2324BCT -2 / / [id number] Suture [place] Dbl Load 5.5mm - [id number] Implanted:Qty: 1 on 12/01/2019 by Judith Condon DO at OR [facility] Right: Shoulder [employer] 09/16/2021 AR-2323BCT -2 / / [id number] documented as of this encounter Advance Directives [...] Advance Directives occurred with: Patient Care Teams Purchaser Relationship Specialty Start Date End Date Velasquez Valencia MD [address] [place] [address] PCP - General Family Medicine 09/09/22 documented as of this encounter
--- OUTSIDE RECORDS SUMMARY | 2024-09-15 11:02 | External Medical Summary | Summary of Care ---
Author Name Unknown Organization [facility] Address [address] [facility] [address] Phone [phone] Care Team Providers Care Supervisor Accounting Clerks Name Role Phone Tati Polo MD Primary Care Provider +1- [phone] Reason for Visit * Reason Comments eRx-Medication Refill Encounter Details Date Type Department Care Team (Late st Contact Info) Description 08/18/2024 Refill Merged With [facility] [address] [place] [address] Ttai Polo MD [address] [place] [address] Allergies Active Allergy Reactions Criticality [...] less than 7.0% ([facility]) Inject 40 units twice daily- [...] Respimat 2.5 MCG/ACT Inhalation Aerosol Solution (Tiotropium [place] Monohydrate) Inhale 2 Puffs by mouth in [...] Patient not taking.Reported on 08/18/2024 Omnipod 5 [id number] Intro Gen 5 KitIndications:Ty pe 2 diabetes mellitus with hemoglobin A1c goal of less than 7.0% (HCC) Use as directed- bring this to visit on Sep 18 1 Kit 4 Active Omnipod 5 [id number] Pods Gen 5Indications:Type 2 diabetes mellitus with [...] 1 MG Oral Tablet (Haldol) 4 Active Terazosin HCl 1 MG Oral Capsule (Hytrin) TAKE 1 CAPSULE BY MOUTH AT BEDTIME 30 Capsule 5 4 Active Spironolactone 25 MG Oral Tablet (Aldactone) TAKE 1 TABLET BY MOUTH EVERY MORNING 30 Tablet 5 4 Active Losartan Potassium 50 MG Oral Tablet (Cozaar) TAKE 1 TABLET BY MOUTH TWICE DAILY 60 Tablet 5 4 Active Torsemide 20 MG Oral Tablet (Demadex) TAKE 1 TABLET BY MOUTH EVERY MORNING 30 Tablet 5 4 Active Spironolactone 25 MG Oral Tablet [...] mRNA, LNP-s, No Pre serve, 2-Dose Series (Statusly) 10/21/2021,03/01/2021,02/07/2021 H1N1 2009 Influenza, IM 11/04/2009 Pneumococcal Conjugate Vacci ne, 20-valent ([id number]) 07/09/2023 Pneumococcal Polysaccharide PPV23 (Pneumovax) 11/03/2015,02/09/2006 Seasonal [...] Telephone Encounter - Tati Polo MD - 08/21/2024 9:22 AM ESTSigned Prescriptions: Disp Refills Terazosin HCl 1 MG Oral Capsule (Hytrin) 30 Cap*5 Sig: TAKE 1 CAPSULE BY MOUTH AT BEDTIMEAuthorizing Provider: TATI POLO Spironolactone 25 MG Oral Tablet(Aldacton*30 Tab*5 Sig: TAKE 1 TABLET BY MOUTH EVERY MORNINGAuthorizing Provider: SHARRON POLO Losartan Potassium 50 MG Oral Tablet (Coza*60 Tab*5 Sig: TAKE 1 TABLET BY MOUTH TWICE DAILYAut horizing Provider: TATI POLO Torsemide 20 MG Oral Tablet (Demadex) 30 Tab*5 Sig: TAKE 1 TABLET BY MOUTH EVERY MORNINGAuthorizing Provider: TATI POLO * Telephone Encounter - Mone Morelos [facility] - 08/20/2024 12:31 PM EST Pending Prescriptions: Disp Refills Terazosin HCl 1 MG Oral Capsule [Pharmacy *30 Cap*0 Sig: Take 1 Capsule by mouth at bedtime. Spironolactone 25 MG Oral Tablet [Pharmacy*30 Tab*0 Sig: TAKE 1 TABLET BY MOUTH EVERY MORNING Losartan Potassium 50 MG Oral Tablet [Phar*60 Tab*0 Sig: TAKE 1 TABLET BY MOUTH TWICE DAILY Torsemide 20 MG Oral Tablet [Pharmacy Med *30 Tab*0 Sig: TAKE 1 TABLET BY MOUTH EVERY MORNING * Telephone Encounter - Mone Morelos [facility] - 08/20/2024 12:30 PM EST Pharmacists cannot authorize refills for meds listed as "historical" in chart. Last prescribed by outside [facility] provider: Pending Prescriptions: Disp Refills Terazosin HCl 1 MG Oral Capsule (Hytrin) *30 Cap*0 Sig: TAKE 1 CAPSULE BY MOUTH AT BEDTIME Losartan Potassium 50 MG Oral Tablet (Coz*60 Tab*0 Sig: TAKE 1 TABLET BY MOUTH TWICE DAILY Patient reported not taking as of 08/18/2024 Pending Prescriptions: Disp Refills Spironolactone 25 MG Oral Tablet (Aldacto*30 Tab*0 Sig: TAKE 1 TABLET BY MOUTH EVERY MORNING Torsemide 20 MG Oral Tablet (Demadex) [Ph*30 Tab*0 Sig: TAKE 1 TABLET BY MOUTH EVERY MORNING Please approve if appropriate. Thank you, Mone Morelos [facility] Clinical Pharmacist [facility] Services ([facility]) 08/20/24 12:30 PM [phone] * Telephone Encounter - Interface, [facility] - 08/20/2024 11:15 AM EST Pending Prescriptions: Disp Refills Terazosin HCl 1 MG Oral Capsule [Pharmacy *30 Cap*0 Sig: Take 1Capsule by mouth at bedtime. Spironolactone 25 MG Oral Tablet [Pharmacy*30 Tab*0 Sig: TAKE 1 TABLETBY MOUTH EVERY MORNING Losartan Potassium 50 MG Oral Tablet [Phar*60 Tab*0 Sig: TAKE 1 TABLET BY MOUTH TWICE DAILY Torsemide 20 MG Oral Tablet [Pharmacy Med *30 Tab*0 Sig: TAKE 1 TABLET BY MOUTH EVERY MORNING documented in this encounter Plan of Treatment Upcoming Encounters Date Type Department Care Team (Late st Contact Info) Description 08/22/2024 10:45 AM EST Scheduled Telephone Care Coordination and Integration [address] [place] [address] Jaye Roberts, Community Health Morning Caregiver [address] [place] [address] 08/22/2024 1:50 PM EST Office Visit Gastroenterology, [place] [address] [place] [address] Brook Steiner DO [address] [place] [address] Acute pancreatitis, unspecified complication status, unspecified pancreatitis type 08/28/2024 2:30 PM EST Office Visit Pharmacy[address] [address] [place], [place] [address] [place] [address] 08/29/2024 9:45 AM EST Scheduled Telephone Care Coordination and Integration [address] [place] [address] Jaye Roberts, Community Health Morning Caregiver [address] [place] [address] 09/18/2024 10:40 AM EST Office Visit Pharmacy, [place] [address] [place] [address] [facility] [address] [place] [address] 11/23/2024 8:00 AM EST [facility] [address] [place] [address] Tati Polo MD [address] [place] [address] 07/09/2025 10:00 AM EDT Office Visit Pulmonary Medicine, [facility] [address] [facility] [place] [address] Vishal Wallace MD [address] [place] [id number] Scheduled Procedures Name Priority Associated Diagnoses Date/Ti [...] this encounter Medical Devices Implanted Type Area Trouble Dispatcher Device Identifier Shelf Expiration Date Model / Serial / Lot Suture [place] Dbl Load 4.75mm - [id number] Implanted:Qty: 1 on 12/01/2019 by Judith Condon DO at OR [facility] Right: Shoulder [employer] 07/17/2021 AR-2324BCT -2 / / [id number] Suture [place] Dbl Load 5.5mm - [id number] Implanted:Qty: 1 on 12/01/2019 by Judith Condon DO at OR [facility] Right: Shoulder [employer] 09/16/2021 AR-2323BCT -2 / / [id number] documented as of this encounter Advance Directives [...] Directives occurred with: Patient Care Teams Supervisor Accounting Clerks Relationship Specialty Start Date End Date Tati Polo MD [address] [place] [facility] [place] [address] PCP - General Family Medicine 09/09/22 documented as of this encounter
--- OUTSIDE RECORDS SUMMARY | 2024-09-15 11:02 | External Medical Summary | Summary of Care ---
Author Name Unknown Organization [facility] Address [address] [facility] [address] Phone [phone] Care Team Providers Care Self Pay Representative Name Role Phone Velasquez Valencia MD Primary Care Provider +1- [phone] Reason for Visit * Reason Onset Date Comments Nurse Documentation 08/03/2024 Encounter Details Date Type Department Care Team (Late st Contact Info) Description 08/03/2024 Telephone [facility] [address] [place] [address] Velasquez Valencia MD [address] [place] [address] Nurse Documentation Allergies Active Allergy Reactions Criticality Noted Date Comments Pioglitazone 07/19/2024 Cefaclor Unknown 07/26/2018 As child Empagliflozin Other (Please comment) 05/16/2021 DKA with hospitalization Nsaids High 04/19/2019 Gastric problems Other Reaction(s): gastroparesis, kidney problems, use with caution : hx esophagus damage documented as of this encounter (statuses as of 08/16/2024) Medications Medication Sig Dispensed Refills Start Date [...] over 140 [see chart at bottom of [facility] visit 05/09/24], Reported on 05/09/2024 traMADol HCl 50 MG Oral Tablet (Ultram)Indication s:Abdominal pain, epigastric Take 1 Tablet by mouth every 6 hours as needed for Pain, Severe. 40 Tablet 02/22/2024 Active traMADol HCl 50 MG Oral Tablet [...] of water. 510 g 5 04/21/2024 Active Atorvastatin Calcium 20 MG Oral Tablet [...] 12 HOURS 120 Capsule 3 05/31/2024 Active oxyCODONE HCl 5 MG Oral Tablet (Oxy IR)Indications:Lum bar disc herniation Take 1 Tablet by mouth every 8 hours as needed for Pain, Severe. 20 Tablet 06/20/2024 Active metFORMIN HCl 500 MG Oral [...] Respimat 2.5 MCG/ACT Inhalation Aerosol Solution (Tiotropium [place] Monohydrate) Inhale 2 Puffs by mouth in the morning. 1 Each 2 07/04/2024 Active Dexcom G6 SensorIndications: Type 2 diabetes mellitus with hemoglobin A1c goal of less than 7.0% ([facility]) Use as directed every 10 days. 9 Each 5 07/18/2024 Active Dexcom G6 TransmitterIndicat ions:Type 2 diabetes mellitus with hemoglobin A1c goal of less than 7.0% ([facility]) Use as directed. Change every 90 days 1 Each 5 07/18/2024 Active Losartan Potassium 50 MG Oral Tablet (Cozaar) Take 1 Tablet by mouth in the morning and 1 Tablet before bedtime. 07/19/2024 Active Terazosin HCl 1 MG Oral Capsule (Hytrin) Take 1 Capsule by mouth at bedtime. 07/19/2024 Active Torsemide 10 MG Oral Tablet (Demadex)Indicatio ns:Acute on chronic diastolic heart failure (HCC) Take 2 tabs by mouth daily 180 Tablet 3 07/28/2024 Active documented as of this encounter (statuses as of 08/16/2024) Active Problems Problem Noted Date Diagnosed Date [...] as of this encounter (statuses as of 08/16/2024) Resolved Problems Problem Noted Date Diagnosed Date [...] as of this encounter (statuses as of 08/16/2024) Immunizations Name Administration Dates Next Due COVID-19 mRNA, LNP-s, No Pre serve, 2-Dose Series (PetroDE) 10/21/2021,03/01/2021,02/07/2021 H1N1 2009 Influenza, IM 11/04/2009 Pneumococcal Conjugate Vacci ne, 20-valent ([id number]) 07/09/2023 Pneumococcal Polysaccharide PPV23 (Pneumovax) 11/03/2015,02/09/2006 Seasonal [...] Telephone Encounter - Sparkle Garcia LPN - 08/03/2024 9:54 AM EDT Received Fax for BFPROVIDERS: Dr. Velasquez Valencia OTHER received from [facility]. FAXED documented in this encounter Plan of Treatment Upcoming Encounters Date Type Department Care Team (Late st Contact Info) Description 08/18/2024 9:20 AM EDT Office Visit Pharmacy, [place] [address] [facility] [place] [id number] [place], [facility] [address] [facility] [facility] [address] 08/18/2024 11:00 AM EDT Office Visit Family [facility] [address] [place] [address] Velasquez Valencia MD [address] [place] [address] 08/22/2024 10:45 AM EST Scheduled Telephone Care Coordination and Integration [address] [place] [address] Jaye Roberts, Community Health Sports Management Internship [address] [place] [address] 08/22/2024 1:50 PM EST Office Visit Gastroenterology, [place] [address] [place] [address] Brook Steiner DO [address] [place] [address] 08/29/2024 9:45 AM EST Scheduled Telephone Care Coordination and Integration [address] [place] [address] Jaye Roberts, Community Health Sports Management Internship [address] [place] [address] 07/09/2025 10:00 AM EDT Office Visit Pulmonary Medicine, [facility] [address] [place] [address] Vishal Wallace MD [address] [place] [id number] Scheduled Procedures Name Priority Associated Diagnoses Date/Ti me COLONOSCOPY FLEXIBLE PROXIMA L DIAGNOSTIC Recall Screening for colon cancer Health Maintenance Due Date Last Done Comments Hepatitis B Vaccine (1 of 3 - 19+ 3-dose series) 1992 Cologuard 2018 Fecal Occult Blood Test 2018 Sigmoidoscopy 2018 COVID-19 Vaccine ( season) 2024 10/21/2021, 03/01/2021, 02/07/2021 Diabetic Eye Exam 08/17/2024 07/28/2023, , 03/07/2021, [...] 04/19/2024 DISCUSS TOBACCO CESSATION (REFER TO SMARTSET #6903) 07/19/2025 07/19/2024, 10/16/2022 GFR 08/02/2025 08/02/2024, 07/18, [...] this encounter Medical Devices Implanted Type Area Account Leader Device Identifier Shelf Expiration Date Model / Serial / Lot Suture [place] Dbl Load 4.75mm - [id number] Implanted:Qty: 1 on 12/01/2019 by Judith Condon DO at OR [facility] Right: Shoulder [employer] 07/17/2021 AR-2324BCT -2 / / [id number] Suture [place] Dbl Load 5.5mm - [id number] Implanted:Qty: 1 on 12/01/2019 [facility] Shoulder [employer] 09/16/2021 AR-2323BCT -2 / / [id number] documented as of this encounter Advance Directives [...] Advance Directives occurred with: Patient Care Teams Self Pay Representative Relationship Specialty Start Date End Date Velasquez Valencia MD [address] [place] [address] PCP - General Family Medicine 09/09/22 documented as of this encounter
--- OUTSIDE RECORDS SUMMARY | 2024-09-15 11:02 | External Medical Summary | Summary of Care ---
Author Name Unknown Organization [facility] Address [address] [facility] [address] Phone [phone] Care Team Providers Care Decommissioning Well Site Manager Name Role Phone Velasquez Valencia MD Primary Care Provider +1- [phone] Reason for Visit * Reason Onset Date Comments Medication Pre-auth 08/18/2024 Omnipod pods Encounter Details Date Type Department Care Team (Late st Contact Info) Description 08/18/2024 [facility]phone [facility] [address] [place] [address] Velasquez Valencia MD [address] [place] [address] Medication Pre-auth (Omnipod pods) Allergies Active Allergy Reactions Criticality Noted Date Comments Pioglitazone 07/19/2024 Cefaclor Unknown 07/26/2018 As child Empagliflozin Other (Please comment) 05/16/2021 DKA with hospitalization Nsaids High 04/19/2019 Gastric problems Other Reaction(s): gastroparesis, kidney problems, use with caution : hx esophagus damage documented as of this encounter (statuses as of 08/18/2024) Medications Medication Sig Dispensed Refills Start Date [...] goal of less than 7.0% ([facility]) Inject 40 units twice daily- this replaces lantus 54 mL 4 01/19/2024 Active Additional Information Patient taking differently: Inject 48 units twice daily- this replaces lantus, Reported on 08/18/2024 BD Pen Needle Short U/F 31G X 8 MM (Insulin Pen Needle)Indications :Type 2 diabetes mellitus with hemoglobin A1c goal of less than 7.0% ([facility]) Use to inject insulin 5 [...] goal of less than 7.0% ([facility]) Use to check blood sugar once daily as needed 100 Strip 05/09/2024 Active OneTouch [place]ica Lancets 33GIndications:Typ e 2 diabetes mellitus with hemoglobin A1c goal of less than 7.0% ([facility]) Use to check blood sugars [...] Respimat 2.5 MCG/ACT Inhalation Aerosol Solution (Tiotropium [place] Monohydrate) Inhale 2 Puffs by mouth in [...] Patient not taking.Reported on 08/18/2024 Omnipod 5 [id number] Intro Gen 5 KitIndications:Typ e 2 diabetes mellitus with hemoglobin A1c goal of less than 7.0% (HCC) Use as directed- bring this to visit on Dec 2 1 Kit 08/18/2024 Active Omnipod 5 [id number] Pods Gen 5Indications:Type 2 diabetes mellitus with [...] 1 MG Oral Tablet (Haldol) 08/08/2024 Active documented as of this encounter (statuses as of 08/18/2024) Active Problems Problem Noted Date Diagnosed Date [...] as of this encounter (statuses as of 08/18/2024) Resolved Problems Problem Noted Date Diagnosed Date [...] as of this encounter (statuses as of 08/18/2024) Immunizations Name Administration Dates Next Due COVID-19 mRNA, LNP-s, No Pre serve, 2-Dose Series (Pfizer) 10/21/2021,03/01/2021,02/07/2021 H1N1 2009 Influenza, IM 11/04/2009 Pneumococcal Conjugate Vacci ne, 20-valent (Agnixch31) 07/09/2023 Pneumococcal Polysaccharide PPV23 (Pneumovax) 11/03/2015,02/09/2006 Seasonal [...] Telephone Encounter - Gisel Butler RP - 08/18/2024 2:18 PM EDT Prior Authorization request details: Prior Auth ([facility]) ID: [id number] Drug/Service Name: OMNIPOD 5 [id number] PODS (GEN 5) Patient: ROBERT BARAJAS Date Requested: 08/18/2024 2:14:27 PM MemberID: [id number] : 1975 Follow up Wednesday to check [...] Patient name: Robert Barajas Jr. ID number: [id number] BIN number: [id number] PCN number: [id number] Group number: [id number] Subscriber name: Rboert Barajas Jr. Primary or Secondary Insurance:Primary Medication: omnipod 5 dex g7g6 pods Reason for Request: qty limit 0.3400 per day Pharmacy and phone number: [facility] [phone] Rx plan and phone number: [facility] [phone] Is this a new medication for the patient? Yes What alternative medications does the pharmacy have in stock?: Thank you, Karina House CPhT [facility] [place] [facility] ([facility]) 08/18/2024, 11:20 AM documented in this encounter Plan of Treatment Upcoming Encounters Date Type Department Care Team (Late st Contact Info) Description 08/22/2024 10:45 AM EST Scheduled Telephone Care Coordination and Integration [address] [place] [address] Jaye Roberts, Community Health Consultant Internship [address] [place] [address] 08/22/2024 1:50 PM EST Office Visit Gastroenterology, [place] [address] [place] [address] Brook Steiner DO [address] [place] [address] Acute pancreatitis, unspecified complication status, unspecified pancreatitis type 08/28/2024 2:30 PM EST Office Visit Pharmacy, [address] [address] [place] [address] [place] [address] 08/29/2024 9:45 AM EST Scheduled Telephone Care Coordination and Integration [facility] [place] [address] Jaye Roberts, Community Health Consultant Internship [address] [place] [address] 09/18/2024 10:40 AM EST Office Visit Pharmacy, [address] [address] [facility] [address] [facility] [address] 11/23/2024 8:00 AM EST Office Visit [place] [facility] [place] [address] [facility] [place] [address] Velasquez Valencia MD [address] [facility] [place] [address] 07/09/2025 10:00 AM EDT Office Visit Pulmonary Medicine, [facility] [address] [facility] [place] [address] Vishal Wallace MD [address] [place] [address] Scheduled Procedures Name Priority Associated Diagnoses Date/Ti [...] this encounter Medical Devices Implanted Type Area Bark Scaler Device Identifier Shelf Expiration Date Model / Serial / Lot Suture [place] Dbl Load 4.75mm - [id number] Implanted:Qty: 1 on 12/01/2019 by Judith Condon DO at OR [facility] Right: Shoulder [employer] 07/17/2021 AR-2324BCT -2 / / [id number] Suture [place] Dbl Load 5.5mm - [id number] Implanted:Qty: 1 on 12/01/2019 by Judith Condon DO at OR [facility] Right: Shoulder [employer] 09/16/2021 AR-2323BCT -2 / / [id number] documented as of this encounter Visit Diagnoses Diagnosis Type 2 diabetes mellitus with hemoglobin A1c goal of less than 7.0% ([facility])- Primary Acute pancreatitis, unspecified complication [...] Advance Directives occurred with: Patient Care Teams Decommissioning Well Site Manager Relationship Specialty Start Date End Date Velasquez Valencia MD [address] [place] [address] PCP - General Family Medicine 09/09/22 documented as of this encounter
--- OUTSIDE RECORDS SUMMARY | 2024-09-15 11:02 | External Medical Summary | Summary of Care ---
Author Name Unknown Organization [facility] Address [address] [facility] [address] Phone [phone] Care Team Providers Care Healthcare Economics Manager Name Role Phone Velasquez Valencia MD Primary Care Provider +1- [phone] Reason for Visit * Reason Comments Dosage Adjustment In Person (Anticoag Cl inic) Diabetes Follow-Up Encounter Details Date Type Department Care Team (Late st Contact Info) Description 08/18/2024 9:20 AM EDT Office Visit Pharmacy, [place] [address] [place] [address] [facility] [address] [place] [address] Type 2 diabetes mellitus with hemoglobin A1c goal of less than 7.0% ([facility])* Allergies Active Allergy Reactions Criticality Noted [...] less than 7.0% ([facility]) Inject 40 units twice daily- this [...] 05/09/2024 Active Gabapentin 100 MG Oral Capsule (Neurontin)Indica [...] Respimat 2.5 MCG/ACT Inhalation Aerosol Solution (Tiotropium [place] Monohydrate) Inhale 2 Puffs by mouth in [...] 07/19/2024 Active Torsemide 10 MG Oral Tablet (Demadex)Indicati ons:Acute on chronic diastolic heart failure (HCC) Take 2 tabs by mouth daily 180 Tablet 3 07/28/2024 Active Additional Information Patient not taking.Reported on 08/18/2024 Omnipod 5 [id number] Intro Gen 5 KitIndications:Ty pe 2 diabetes mellitus with hemoglobin A1c goal of less than 7.0% (HCC) Use as directed- bring this to visit on Sep 18 1 Kit 08/18/2024 Active Omnipod 5 [id number] Pods Gen 5Indications:Type 2 diabetes mellitus with hemoglobin A1c goal of less than 7.0% (HCC) Use as directed. Change pod every 2 days 45 Each 3 08/18/2024 Active Insulin Aspart 100 UNIT/ML Injection Solution (NovoLOG)Indicati ons:Type 2 diabetes mellitus with hemoglobin A1c goal of less than 7.0% ([facility]) Inject up to 120 units daily using Omnipod 5 120 mL 4 08/18/2024 Active metFORMIN HCl 500 MG Oral Tablet (Glucophage)Indic ations:Type 2 diabetes mellitus with hemoglobin A1c goal of less than 7.0% ([facility]) Take 2 Tablets by mouth in the morning and 2 Tablets in the evening. 360 Tablet 3 07/03/2024 4 Discontinu ed(End of Procedure) Pioglitazone HCl 45 MG Oral Tablet (Actos) Take 1 Tablet by mouth in the morning. 4 Discontinu ed(End of Procedure) documented as of [...] 11/14/200906/09 Overview: Per HTN Taxonomy. Diabetic polyneuropathy 04/12/20072016 Overview: ICD-10 update of inactive term DM [...] IM 11/04/2009 Pneumococcal Conjugate Vacci ne, 20-valent ([id number]) 07/09/2023 Pneumococcal Polysaccharide PPV23 (Pneumovax) 11/03/2015,02/09/2006 Seasonal [...] this encounter Progress Notes * Gisel Butler, [facility] - 08/18/2024 9:29 AM EDT Images from the original note were not included. Medication Therapy Disease [facility] - Diabetes Management Progress Note Bry Akhtar Jr., identified by name and date of , is a 48 year old male being seen for diabetes management/education. Patient presents for return diabetic visit. DIABETES: Current diabetic medications: Metformin HCL 500mg, 2 tabs BID not currently taking due to stomach issues Toujeo U300 40 units in AM and 40 units in PM Novolog 34 units with breakfast, and 22 units with lunch and 24 units with supper + 10 units with snacks + CF of 1:10 over 140 Medication Injection Site: Abdomen Lifestyle: Diet: per patient- improved, eating less Glucose Review/SMBG: Readings obtained from patient device Hypoglycemia: Does your blood sugar go below 70 mg/dL? No Hyperglycemia symptoms present: none Recent Labs Units 05/09/24 1359 03/07/24 0517 01/14/24 1059 HEMOGLOBIN A1C - [facility] % 8.6* -- 10.2* HEMOGLOBIN, D1S-FKGUBXR LAB % -- 10.0* -- Recent Labs Units 08/02/24 1349 07/29/24 0000 07/19/24 1239 ESTIMATED GLOMERULAR FILTRATION RATE - [facility] mL/min 87 53* 73 CREATININE - [facility] mg/dL 1.0 1.57* 1.2 HYPERTENSION: Patient on ACEi/ARB: not currently- patient stopped taking all medications but insulin BP Readings from Last 3 Encounters: 08/18/24 142/82 08/07/24 158/80 08/03/24 147/52 Blood pressure at goal: no HYPERLIPIDEMIA: Recent Labs Units 04/11/24 0345 12/13/23 0439 01/05/23 1133 LDL CHOLESTEROL (CALCULATED) - [facility] mg/dL -- 48 126 LDL CHOLESTEROL (DIRECT MEASURE) - [facility] mg/dL 60 -- -- Does patient have clinical ASCVD? No, is patient LDL less than 70mg/dL? Yes HEALTH MAINTENANCE REVIEW: Health Maintenance Due Topic Date Due Hepatitis B Vaccine (1 of - 19+ 3-dose series) Never done COVID-19 Vaccine (2023- season) 2024 Diabetic Foot Exam 07/09/2024 Diabetic Eye Exam 07/28/2024 ASSESSMENT & PLAN: ICD-10-CM 1. Type 2 diabetes mellitus with hemoglobin A1c goal of less than 7.0% (HCC) E11.9 Considerations: - Jardiance caused DKA - hx of acute pancreatitis 12/14/23 & 03/2024- avoiding GLPs and GIPs - metformin stopped on own by patient 07/2024 and he feels better off it BG Readings - Blood sugars uncontrolled. Average 290 for the last two weeks. 1% TIR. Medications - Reviewed current regimen, patient is not adherent to regimen. Stopped all his medications except for insulin. States he does feel better off of the metformin. At this point, will pursueomnipod 5 for patient with the hope that the closed loop system can get his blood sugars under better control. In the interim, I will increase his basal insulin. He states right now he is taking up to 80 units daily of novolog and then the 80 units total of touCausePlayo Diet, Exercise, Lifestyle - per patient, he is eating less and making efforts there, but he has also been having significant stomach issues . Patient is agreeable to SMBG with Dexcom G6 daily. Patient aware to contact clinic if any hypoglycemia before next visit. MEDICATION CHANGES: yes, see below; preferred pharmacy: [facility]) Diabetic Medications: INC Toujeo U300 48 units in AM and 48 units in PM Novolog 34 units with breakfast, and 22 units with lunch and 24 units with supper + 10 units with snacks + CF of 1:10 over 140 FOLLOW UP: Return to clinic in 2 weeks to help patient set up all accounts for omnipod, and then 1 month for insulin pump start. 08/28/2024 I spent a total of 30-39 minutes (exact time 38 mins) on the date of service in preparation, delivery, and documentation of the care provided to Bry Akhtar Jr. excluding any time spent in the performance of separately billed services. Gisel Butler [facility] Clinical Pharmacist - [facility] 08/18/2024, 9:29 AM documented in this encounter Plan of Treatment Upcoming Encounters Date Type Department Care Team (Late st Contact Info) Description 08/22/2024 10:45 AM EST Scheduled Telephone Care Coordination and Integration [address] [facility] [place] [address] Jaye Roberts, Community Health Shelf Filler [address] [place] [address] 08/22/2024 1:50 PM EST Office Visit Gastroenterology, [place] [address] [place] [address] Brook Steiner DO [address] [place] [address] Acute pancreatitis, unspecified complication status, unspecified pancreatitis type 08/28/2024 2:30 PM EST Office Visit Pharmacy, [address] [address] [place], [facility] [address] [place] [address] 08/29/2024 9:45 AM EST Scheduled Telephone Care Coordination and Integration [address] [place] [address] Jaye Roberts, Community Health Shelf Filler [address] [place] [address] 09/18/2024 10:40 AM EST Office Visit Pharmacy, [place] [address] [place] [address] [facility] [address] [place] [address] 11/23/2024 8:00 AM EST [facility] [address] [place] [address] Velasquez Valencia MD [address] [place] [address] 07/09/2025 10:00 AM EDT Office Visit Pulmonary Medicine, [facility] [address] [facility] [place] [address] Vishal Wallace MD [address] [place] [id number] Scheduled Procedures Name Priority Associated Diagnoses Date/Ti [...] this encounter Medical Devices Implanted Type Area Cellulose Insulation Helper Device Identifier Shelf Expiration Date Model / Serial / Lot Suture [place] Dbl Load 4.75mm - [id number] Implanted:Qty: 1 on 12/01/2019 by Judith Condon DO at OR [facility] Right: Shoulder [employer] 07/17/2021 AR-2324BCT -2 / / [id number] Suture [place] Dbl Load 5.5mm - [id number] Implanted:Qty: 1 on 12/01/2019 by Judith Condon DO at OR [facility] Right: Shoulder [employer] 09/16/2021 AR-2323BCT -2 / / [id number] documented as of this encounter Visit Diagnoses Diagnosis Type 2 diabetes mellitus with hemoglobin A1c goal of less than 7.0% ([facility])- Primary Acute pancreatitis, unspecified complication status, [...] Advance Directives occurred with: Patient Care Teams Healthcare Economics Manager Relationship Specialty Start Date End Date Velasquez Valencia MD [address] [place] [facility] [place] [address] PCP - General Family Medicine 09/09/22 documented as of this encounter
--- OUTSIDE RECORDS SUMMARY | 2024-09-15 11:02 | External Medical Summary | Summary of Care ---
Author Name Unknown Organization [facility] Address [address] [facility] [address] Phone [phone] Care Team Providers Care Personal Injury Paralegal Name Role Phone Velasquez Valencia MD Primary Care Provider +1- [phone] Reason for Visit * Reason Onset Date Comments Nurse Documentation 08/16/2024 Encounter Details Date Type Department Care Team (Late st Contact Info) Description 08/16/2024 Telephone [facility] [address] [place] [address] Velasquez Valencia MD [address] [place] [address] Nurse Documentation Allergies Active Allergy [...] 140 [see chart at bottom of [facility] visit 05/09/24], Reported on 05/09/2024 [...] Respimat 2.5 MCG/ACT Inhalation Aerosol Solution (Tiotropium [place] Monohydrate) Inhale 2 Puffs by mouth in the morning. 1 Each 2 07/04/2024 Active Dexcom G6 SensorIndications: Type 2 diabetes mellitus with hemoglobin A1c goal of less than 7.0% ([facility]) Use as directed every 10 days. 9 Each 5 07/18/2024 Active Dexcom G6 TransmitterIndicat ions:Type 2 diabetes mellitus with hemoglobin A1c goal of less than 7.0% ([facility]) Use as directed. Change every 90 [...] mouth daily 180 Tablet 3 07/28/2024 Active Pioglitazone HCl 45 MG Oral Tablet (Actos) Take 1 Tablet by mouth in the morning. Active documented as of this encounter (statuses [...] mRNA, LNP-s, No Pre serve, 2-Dose Series (RFID Global Solution) 10/21/2021,03/01/2021,02/07/2021 H1N1 2009 Influenza, IM 11/04/2009 Pneumococcal Conjugate Vacci ne, 20-valent ([id number]) 07/09/2023 Pneumococcal Polysaccharide PPV23 (Pneumovax) 11/03/2015,02/09/2006 Seasonal [...] Encounter - Emily Wang MED ASSIST - 08/16/2024 11:23 AM EDT Received Fax for BFPROVIDERS: Dr. Velasquez Valencia ORDER received from [facility] and FAXED documented in this encounter Plan of Treatment Upcoming Encounters Date Type Department Care Team (Late st Contact Info) Description 08/18/2024 9:20 AM EDT Office Visit Sharad Mcdonough [address] [place] [address] [facility] [address] [place] [address] 08/18/2024 11:00 AM EDT Office Visit [facility] [address] [place] [phone] Velasquez Valencia MD [address] [place] [address] 08/22/2024 10:45 AM EST Scheduled Telephone Care Coordination and Integration [address] [place] [address] Jaye Roberts, Community Health Fittings Finisher [address] [place] [address] 08/22/2024 1:50 PM EST Office Visit Gastroenterology, [place] [address] [place] [address] Brook Steiner DO [address] [place] [address] 08/29/2024 9:45 AM EST Scheduled Telephone Care Coordination and Integration [address] [place] [address] Jaye Roberts, Community [facility] Fittings Finisher [address] [place] [address] 07/09/2025 10:00 AM EDT Office Visit Pulmonary Medicine, [facility] [address] [facility] [place] [id number] Vishal Wallace MD [address] [place] [phone] Scheduled Procedures Name Priority Associated Diagnoses Date/Ti [...] 04/19/2024 DISCUSS TOBACCO CESSATION (REFER TO SMARTSET #9520) 07/19/2025 07/19/2024, 10/16/2022 GFR 08/02/2025 08/02/2024, 07/18, [...] this encounter Medical Devices Implanted Type Area Reclamation Furnace Operator Device Identifier Shelf Expiration Date Model / Serial / Lot Suture [place] Dbl Load 4.75mm - [id number] Implanted:Qty: 1 on 12/01/2019 by Judith Condon DO at OR [facility] Right: Shoulder [employer] 07/17/2021 AR-2324BCT -2 / / [id number] Suture [place] Dbl Load 5.5mm - [id number] Implanted:Qty: 1 on 12/01/2019 by Judith Condon DO at OR [facility] Right: Shoulder [employer] 09/16/2021 AR-2323BCT -2 / / [id number] documented as of this encounter Advance Directives [...] Advance Directives occurred with: Patient Care Teams Personal Injury Paralegal Relationship Specialty Start Date End Date Velasquez Valencia MD [address] [place] [address] PCP - General Family Medicine 09/09/22 documented as of this encounter
--- OUTSIDE RECORDS SUMMARY | 2024-09-15 11:03 | External Medical Summary | Summary of Care ---
Author Name Unknown Organization [facility] Address [address] [facility] [address] Phone [phone] Care Team Providers Care Armature Winder Helper Repair Name Role Phone Velasquez Valencia MD Primary Care Provider +1- [phone] Reason for Visit * Reason Onset Date Comments Advice 08/03/2024 Encounter Details Date Type Department Care Team (Late st Contact Info) Description 08/03/2024 Telephone [facility] [address] [place] [address] Velasquez Valencia MD [address] [place] [address] Advice Allergies Active Allergy Reactions Criticality Noted Date Comments Pioglitazone 07/19/2024 Cefaclor Unknown 07/26/2018 As child Empagliflozin Other (Please comment) 05/16/2021 DKA with hospitalization Nsaids High 04/19/2019 Gastric problems Other Reaction(s): gastroparesis, kidney problems, use with caution : hx esophagus damage documented as of this encounter (statuses as of 08/04/2024) Medications Medication Sig Dispensed Refills Start Date [...] in the morning. 30 Patch 04/14/2024 Active Additional Information Patient not taking.Reported on 07/31/2024 Metoclopramide HCl 10 MG Oral Tablet (Reglan) [...] Additional Information Patient not taking.Reported on 08/02/2024 Alum & Mag Hydroxide-Simeth 400-400-40 MG/5ML Oral [...] A1c goal of less than 7.0% ([facility]) Use to check blood sugar once daily as needed 100 Strip 05/09/2024 Active OneTouch Delica Lancets 33GIndications:Typ e 2 diabetes mellitus with hemoglobin A1c goal of less than 7.0% ([facility]) Use to check blood [...] Respimat 2.5 MCG/ACT Inhalation Aerosol Solution (Tiotropium [place] Monohydrate) Inhale 2 Puffs by mouth in the morning. 1 Each 2 07/04/2024 Active Additional Information Patient not taking.Reported on 08/02/2024 Dexcom G6 SensorIndications: Type 2 diabetes mellitus [...] Capsule by mouth at bedtime. 07/19/2024 Active Dicyclomine HCl 10 MG Oral Capsule (Bentyl) TAKE 1 CAPSULE BY MOUTH FOUR TIMES DAILY 360 Capsule 1 07/20/2024 Active Torsemide 10 MG Oral Tablet (Demadex)Indicatio ns:Acute on chronic diastolic heart failure (HCC) Take 2 tabs by mouth daily 180 Tablet 3 07/28/2024 Active documented as of this encounter (statuses as of 08/04/2024) Active Problems Problem Noted Date Diagnosed Date Chest pain, non-cardiac 08/03/2024 Hx of BKA, [...] as of this encounter (statuses as of 08/04/2024) Resolved Problems Problem Noted Date Diagnosed Date Resolved Date S/P hardware removal 03/03/2024 024 Ankle wound, left, initial encounter 03/03/2024 05/24/2024 Cellulitis of left lower extremity 03/03/2024 05/24/2024 Acute pancreatitis 12/12/2023 Thrush 12/12/2023 01/14/2024 Fall 11/01/2023 05/24/2024 Hypertensive emergency 10/30/202305/24 Elevated troponin 10/30/2023 05/24/2024 Sepsis 10/28/2023 01/14/2024 Nausea and vomiting 10/27/2023 05/24/20 24 Abdominal pain, generalized 10/27/2023 05/24/2024 Charcot ankle, left 10/27/2023 05/24/20 S/P ankle fusion 10/27/2023 05/24/2024 Intractable nausea [...] as of this encounter (statuses as of 08/04/2024) Immunizations Name Administration Dates Next Due COVID-19 mRNA, LNP-s, No Pre serve, 2-Dose Series ([employer] Committee) 10/21/2021,03/01/2021,02/07/2021 H1N1 2009 Influenza, IM 11/04/2009 Pneumococcal Conjugate Vacci ne, 20-valent ([id number]) 07/09/2023 Pneumococcal Polysaccharide PPV23 (Pneumovax) 11/03/2015,02/09/2006 Seasonal [...] No 04/19/2024 Does the household have a [facility] source of income? (Household - for [...] encounter Miscellaneous Notes * Telephone Encounter - Starla La PHARM [...] that would work the same. [id number] [address] Thank You, Starla La CPhT Garnett Fixer II [facility] 08/04/2024, [...] reach him. Thank you, Toshia Stern CPhT Executive Sales Assistant I [facility] 08/03/2024,4:32 PM * Telephone Encounter - Emily Moore OSA - 08/03/2024 8:55 AM EDT Patient was seen at [place] ER last evening 08/02 and scheduled for [...] Care Team (Late st Contact Info) Description 08/07/2024 2:00 PM EDT Office Visit [facility], [place] [address] [facility], [place] [phone] Velasquez Valencia MD [address] [facility], [place] [address] 08/18/2024 9:20 AM EDT Office Visit Pharmacy, [place] [address] [facility], [place] [address] [facility] [address] [facility], [place] [address] 08/18/2024 11:00 AM EDT Office Visit [facility], [place] [address] [facility], [place] [phone] Velasquez Valencia [facility] [address] [facility] [address] 07/09/2025 10:00 AM EDT Office Visit Pulmonary Medicine, [facility] [address] [facility] [place] [phone] Vishal Wallace MD [address] [place] [phone] Scheduled Procedures Name Priority Associated Diagnoses Date/Ti [...] 04/19/2024 DISCUSS TOBACCO CESSATION (REFER TO SMARTSET #0476) 07/19/2025 07/19/2024, 10/16/2022 GFR 08/02/2025 08/02/2024, 07/18, [...] this encounter Medical Devices Implanted Type Area Bilingual Instructor Device Identifier Shelf Expiration Date Model / Serial / Lot Suture [place] Dbl Load 4.75mm - [id number] Implanted:Qty: 1 on 12/01/2019 by Judith Condon, at OR [facility] Right: Shoulder [employer] 07/17/2021 AR-2324BCT -2 / / [id number] Suture [place] Dbl Load 5.5mm - [id number] Implanted:Qty: 1 on 12/01/2019 by Judith Condon, at OR [facility] Right: Shoulder [employer] 09/16/2021 AR-2323BCT -2 / / [id number] documented as of this encounter Advance Directives [...] Advance Directives occurred with: Patient Care Teams Armature Winder Helper Repair Relationship Specialty Start Date End Date Velasquez Valencia MD [address] [facility] [place] [address] PCP - General Family Medicine 09/09/22 documented as of this encounter
--- OUTSIDE RECORDS SUMMARY | 2024-09-15 11:03 | External Medical Summary | Summary of Care ---
Author Name Unknown Organization [facility] Address [address] [facility] [address] Phone [phone] Care Team Providers Care Manager Mental Health Name Role Phone Velasquez Valencia MD Primary Care Provider +1- [phone] Reason for Visit * Reason Onset Date Comments Advice 08/03/2024 Encounter Details Date Type Department Care Team (Late st Contact Info) Description 08/03/2024 Telephone [facility] [address] [place] [address] Velasquez Valencia MD [address] [place] [address] Advice Allergies Active Allergy Reactions Criticality Noted Date Comments Pioglitazone 07/19/2024 Cefaclor Unknown 07/26/2018 As child Empagliflozin Other (Please comment) 05/16/2021 DKA with hospitalization Nsaids High 04/19/2019 Gastric problems Other Reaction(s): gastroparesis, kidney problems, use with caution : hx esophagus damage documented as of this encounter (statuses as of 08/03/2024) Medications Medication Sig Dispensed Refills Start Date [...] of less than 7.0% ([facility]) Use to check blood sugar once daily as needed 100 Strip 05/09/2024 Active OneTouch Delica Lancets 33GIndications:Typ e 2 diabetes mellitus with hemoglobin A1c goal of less than 7.0% ([facility]) Use to check blood sugars once daily [...] Respimat 2.5 MCG/ACT Inhalation Aerosol Solution (Tiotropium [place] Monohydrate) Inhale 2 Puffs by mouth in [...] as of this encounter (statuses as of 08/03/2024) Active Problems Problem Noted Date Diagnosed Date [...] as of this encounter (statuses as of 08/03/2024) Resolved Problems Problem Noted Date Diagnosed Date [...] as of this encounter (statuses as of 08/03/2024) Immunizations Name Administration Dates Next Due COVID-19 mRNA, LNP-s, No Pre serve, 2-Dose Series (Sitesimon) 10/21/2021,03/01/2021,02/07/2021 H1N1 2009 Influenza, IM 11/04/2009 Pneumococcal Conjugate Vacci ne, 20-valent ([id number]) 07/09/2023 Pneumococcal Polysaccharide PPV23 (Pneumovax) 11/03/2015,02/09/2006 Seasonal [...] encounter Miscellaneous Notes * Telephone Encounter - Toshia Stern PHARM Tech - 08/03/2024 4:31 PM EDT Pt's ec calling to check the status of meds that were supposed to be prescribed by doctor. Advised pt's ec that Dr has to review orders and call them back. Transferred them over to Dr's office to tryand reach him. Thank you, Toshia Stern [facility] Acidizer Helper I [facility] 08/03/2024,4:32 PM * Telephone Encounter - Emily Moore OSA - 08/03/2024 8:55 AM EDT Patient was seen at [place] ER last evening 08/02 and scheduled for [...] Description 08/07/2024 2:00 PM EDT Office Visit [address] [phone] Velasquez Valencia MD [address] [place] [address] 08/18/2024 9:20 AM EDT Office Visit Pharmacy, [address] [address] [facility] [address] [place] [address] 08/18/2024 11:00 AM EDT Office [place] [address] [place] [phone] [facility]quez Valencia [facility] [address] [facility] [address] 07/09/2025 10:00 AM EDT Office Visit Pulmonary Medicine, [facility] [address] [place] [address] Vishal Wallace MD [address] [place] [address] Scheduled Procedures Name Priority Associated Diagnoses Date/Ti [...] this encounter Medical Devices Implanted Type Area Comprehensive Advisor Device Identifier Shelf Expiration Date Model / Serial / Lot Suture [place] Dbl Load 4.75mm - [id number] Implanted:Qty: 1 on 12/01/2019 by Judith Condon, DO at OR [facility] Right: Shoulder [employer] 07/17/2021 AR-2324BCT -2 / / [id number] Suture [place] Dbl Load 5.5mm - [id number] Implanted:Qty: 1 on 12/01/2019 by Judith Condon, at OR [facility] Right: Shoulder [employer] 09/16/2021 AR-2323BCT -2 / / [id number] documented as of this encounter Advance Directives [...] Directives occurred with: Patient Care Teams Manager Mental Health Relationship Specialty Start Date End Date Velasquez Valencia MD [address] [place] [facility] [place] [address] PCP - General Family Medicine 09/09/22 documented as of this encounter
--- OUTSIDE RECORDS SUMMARY | 2024-09-15 11:03 | External Medical Summary | Summary of Care ---
Author Name Unknown Organization [facility] Address [address] [place] [facility] [place] [address] Phone [phone] Care Team Providers Care Apparel Machinery Instructor Name Role Phone Velasquez Valencia MD Primary Care Provider +1- [phone] Reason for Visit * Reason Comments Hospital Follow-Up Encounter Details Date Type Department Care Team (Latest Contact Info) Description 08/07/2024 2:00 PM EDT Office Visit [facility] [address] [place] [address] Velasquez Valencia MD [address] [place] [address] Gastroparesis*; Diabetic polyneuropathy associated with type 2 diabetes mellitus ([facility]); DM type 2 causing vascular disease ([facility]); Type 2 diabetes mellitus with hemoglobin A1c goal of less than 7.0% ([facility]); Hx of BKA, left ([facility]) Allergies Active Allergy Reactions Criticality Noted Date Comments Pioglitazone 07/19/2024 Cefaclor Unknown 07/26/2018 As child Empagliflozin Other (Please comment) 05/16/2021 DKA with hospitalization Nsaids High 04/19/2019 Gastric problems Other Reaction(s): gastroparesis, kidney problems, use with caution : hx esophagus damage documented as of this encounter (statuses as of 08/07/2024) Medications Medication Sig Dispensed Refills Start Date [...] of less than 7.0% ([facility]) Use to inject insulin 5 [...] for Pain, Severe. 40 Tablet 4 Active traMADol HCl 50 MG [...] of less than 7.0% ([facility]) Use to check blood sugar once daily as needed 100 Strip 4 Active OneTouch Delica Lancets 33GIndications:Ty pe 2 diabetes mellitus with hemoglobin A1c goal of less than 7.0% ([facility]) Use to check blood sugars once daily as needed 100 Each 4 Active Gabapentin 100 MG Oral Capsule (Neurontin)Indica tions:Neuropathy TAKE 2 CAPSULES BY MOUTH EVERY 12 HOURS 120 Capsule 3 4 Active oxyCODONE HCl 5 MG Oral Tablet (Oxy IR)Indications:[facility] mbar disc herniation Take 1 Tablet by mouth every 8 hours as needed for Pain, Severe. 20 Tablet 4 Active metFORMIN HCl 500 MG Oral [...] Respimat 2.5 MCG/ACT Inhalation Aerosol Solution (Tiotropium [place] Monohydrate) Inhale 2 Puffs by mouth in [...] Capsule by mouth at bedtime. 4 Active Torsemide 10 MG Oral Tablet (Demadex)Indicati ons:Acute on chronic diastolic heart failure (HCC) Take 2 tabs by mouth daily 180 Tablet 3 4 Active Pioglitazone HCl 45 MG Oral Tablet (Actos) Take 1 Tablet by mouth in the morning. Active Lidocaine 4 % External Patch (Aspercreme) Place 1 Patch over 12 hours topically on the skin in the morning. 30 Patch 4 08/07/20 24 Discontinu ed(Medicat ion List Clean Up) Metoclopramide HCl 10 MG Oral Tablet (Reglan) take 1 tablet by mouth three times a day 30 MINUTES before MEALS 270 Tablet 1 4 08/07/20 24 Discontinu ed(Medicat ion List Clean Up) Movantik 25 MG Oral Tablet (Naloxegol Oxalate) take 1 tablet by mouth in the morning 30 Tablet 5 4 08/07/20 Discontinu ed(Medicat ion List Clean Up) Cyclobenzaprine HCl 10 MG Oral Tablet (Flexeril)Indicat ions:Lumbar disc herniation TAKE 1 TABLET BY MOUTH AT BEDTIME ONLY NEEDED 30 Tablet 4 08/07/20 Discontinu ed(Medicat ion List Clean Up) Dicyclomine HCl 10 MG Oral Capsule (Bentyl) TAKE 1 CAPSULE BY MOUTH FOUR TIMES DAILY 360 Capsule 1 4 08/07/20 Discontinu ed(Medicat ion List Clean Up) Haloperidol 1 MG Oral Tablet (Haldol) 1 tablet by mouth every 6 hours as needed for gastrointestinal symptoms. 60 Tablet 4 08/07/20 Discontinu ed(Medicat ion List Clean Up) documented as of this encounter (statuses as of 08/07/2024) Active Problems Problem Noted Date Diagnosed Date [...] as of this encounter (statuses as of 08/07/2024) Resolved Problems Problem Noted Date Diagnosed Date [...] as of this encounter (statuses as of 08/07/2024) Immunizations Name Administration Dates Next Due COVID-19 mRNA, LNP-s, No Pre serve, 2-Dose Series ([employer]) 10/21/2021,03/01/2021,02/07/2021 H1N1 2009 Influenza, IM 11/04/2009 Pneumococcal Conjugate Vacci ne, 20-valent ([id number]) 07/09/2023 Pneumococcal Polysaccharide PPV23 (Pneumovax) 11/03/2015,02/09/2006 Seasonal [...] Sign Reading Time Taken Comments Blood Pressure 158/80 08/07/2024 2:16 PM EDT Pulse 120 08/07/2024 2:16 PM EDT Temperature 36.9 C (98.4 F) 08/07/2024 2:16 PM ED T Respiratory Rate 20 08/07/2024 2:16 PM EDT Oxygen Saturation 93% 08/07/2024 2:16 PM EDT Inhaled Oxygen Concentration - - Weight - - Height 188 cm (6' 2") 08/07/2024 2:16 PM EDT Per patient Body Mass Index - - documented in [...] Progress Notes * Velasquez Valencia MD - 08/07/2024 3:25 PM EDT Subjective: Bry Akhtar . is a 48 year old male here today for Chief Complaint Patient presents with Hospital Follow-Up Patient presents for follow-up from an emergency department visit at [facility]. Patient has been having difficulties with ongoing abdominal pain. Has been requesting admission to the hospital until itcan be figured out. Last week on 08/02/24 he was to have had an endoscopic ultrasound. Patient states he had not had solid food for over 2 days prior to the procedure. There was still food in his stomach and the procedure had to be aborted. Patient then wanted to be admitted to the hospital until the procedure could be completed. He was discharged. He drove to [facility] to be seen in the emergencydepartment there in hopes that he could be admitted until a procedure could be done. Also, he was ho peful that he could see a motility specialist. Emergency department notes reviewed. Patient was given a dose of haloperidol which did seem to help his symptoms. He is requesting a trial of that medication. He is frustrated that he was not admitted. As of now, he is not rescheduled for upper endoscopy. Patient also has a form for diabetic shoes. Form was completed and returned to him. This note will also be sent. He does have diabetes with neuropathy and vascular disease. He has had a left giimf-[id number] amputation. Past Medical History: Diagnosis Date Abscess of [...] 04/18/2015 adenomatous polyp, repeat 5 yrs/[facility] COLONOSCOPY, DIAGNOSTIC (RECTUM) 04/15/2023 poor prep, repeat / [facility] COLONOSCOPY, DIAGNOSTIC (RECTUM) N/A 02/22/2024 normal/recall 5 years/COLONOSCOPY FLEXIBLE PROXIMAL DIAGNOSTIC performed by Marcela Del Valle MD at OR [facility] EGD, FLEXIBLE, DIAGNOSTIC 10/17/2014 mild-mod inflammation, repeat 1-2 mo/[facility] EGD, FLEXIBLE, DIAGNOSTIC 04/17/2015 normal bx/inpt [facility] EGD, FLEXIBLE, DIAGNOSTIC 05/08/2019 reflux esophagitis, gastritis, duodenitis, repeat 6 wks / [facility] EGD, FLEXIBLE, DIAGNOSTIC 08/18/2019 normal-EGD/[place] EGD, FLEXIBLE, DIAGNOSTIC N/A 05/02/2020 biopsies normal/[facility] EGD, FLEXIBLE, DIAGNOSTIC N/A 02/22/2024 antral gastritis/biopsies normal/ESOPHAGOGASTRODUODENOSCOPY (EGD), FLEXIBLE, TRANSORAL, DIAGNOSTIC performed by Marcela Del Valle MD at OR [facility] EGD, FLEXIBLE, DIAGNOSTIC N/A 08/02/2024 ESOPHAGOGASTRODUODENOSCOPY (EGD), FLEXIBLE, TRANSORAL, DIAGNOSTIC performed by Belen Jones DO OR [facility] INJECT DX/THER SUBSTANCE INTERLAMINAR CERVICAL/THORACIC [...] Current Outpatient Medications Medication Sig Dispense Refill Polyethylene Glycol 3350 17 GM Oral Packet [...] over 140 [see chart at bottom of [facility] visit 05/09/24]) 120 mL4 traMADol HCl 50 MG Oral Tablet (Ultram) Take 1 Tablet by mouth every 6 hours as needed for Pain, Severe. 40 Tablet 0 Metoclopramide HCl 10 MG Oral Tablet [...] in 8 ounces of water.510 g 5 Atorvastatin Calcium 20 MG Oral [...] needed for Pain, Severe. 20 Tablet 0 metFORMIN HCl 500 MG Oral Tablet (Glucophage) Take 2 Tablets by mouth in the morning and 2 Tablets in the evening. 360 Tablet 3 Pantoprazole Sodium 40 MG Oral Tablet Delayed Release (Protonix) TAKE 1 TABLET BY MOUTH TWICE A HMD617 Tablet 3 Famotidine 20 MG Oral Tablet (Pepcid) TAKE ONE TABLET BY MOUTH NIGHTLY AT BEDTIME 90 Tablet 3 Spiriva Respimat 2.5 MCG/ACT Inhalation Aerosol Solution (Tiotropium [place] Monohydrate) Inhale 2 Puffs by mouth in the morning. 1 Each 2 Dexcom G6 Sensor Use as directed every 10 days. 9 Each 5 Dexcom G6 Transmitter Use as directed. Change every 90 days 1 Each 5 Losartan Potassium 50 MG Oral Tablet (Cozaar) Take 1 Tablet by mouth in the morning and 1 Tablet before bedtime. Terazosin HCl 1 MG Oral Capsule (Hytrin) Take 1 Capsule by mouth at bedtime. Dicyclomine HCl 10 MG Oral Capsule (Bentyl) TAKE 1 CAPSULE BY MOUTH FOUR TIMES DAILY 360 Capsule 1 Torsemide 10 MG Oral Tablet (Demadex) Take 2 tabs by mouth daily 180 Tablet 3 Pioglitazone HCl 45 MG Oral Tablet (Actos) Take 1 Tablet by mouth in the morning. Albuterol Sulfate HFA 108 (90 Base) MCG/ACT [...] taking: Reported on 08/07/2024) 30 Capsule 0 No current facility-administered medications for this visit. Objective: BP 158/80 | Pulse 120 | Temp 36.9 C (98.4 F) (Tympanic) | Resp 20 | Ht 1.88 m (6' 2") Comment: Per patient | SpO2 93% | BMI 44.17 kg/m | BSA 2.85 m GEN: NAD Assessment and Plan: Gastroparesis (Primary) -will see if gastroenterology recommends that he see a motility expert. Will also see about gettingthe endoscopic ultrasound rescheduled. We reviewed his current medications. We have elected that [place] try and hold oxycodone, tramadol, dicyclomine, cyclobenzaprine, movantik. He was hoping for a trial of haloperidol because it helped him in the emergency department. We discussed that he should not combine that with metoclopramide. He is going to hold the metoclopramide for now and try the haloperidol over the next few days. For his pain from neuropathy and phamtom limb symptoms, can increase gabapentin to 300 mg tid. Diabetic polyneuropathy associated with type 2 diabetes mellitus (HCC) DM type 2 causing vascular disease (HCC) Type 2 diabetes mellitus with hemoglobin A1c goal of less than 7.0% (HCC) Hx of BKA, left ([facility]) -form completed and returned to patient. Will fax this note as well. He is appropriate for diabeticshoes. 35 min with pt and documentation Velasquez Valencia MD documented in this encounter Nursing Notes * Radha Fair LPN - 08/07/2024 2:15 PM EDT The patient has been properly identified by confirmation of name and date of . Chief Complaint Patient presents with Hospital Follow-Up Patient states he has not had any of his medications since Wednesday.Thinks he needs to scrap all of his current medications and start over. States a MD at the hospital told him all of his issues may be being caused by some of his medicine. documented in this encounter Plan of Treatment Upcoming Encounters Date Type Department Care Team (Late st Contact Info) Description 08/08/2024 2:30 PM EDT Scheduled Telephone Care Coordination and Integration [address] [place] [phone] Jaye Roberts, [facility] Epic Anesthesia Analyst [address] [place] [address] 08/15/2024 12:30 PM EDT Scheduled Telephone Care Coordination and Integration [address] [place] [phone] Jaye Roberts, [facility] Epic Anesthesia Analyst [address] [place] [address] 08/18/2024 9:20 AM EDT Office Visit Pharmacy, [address] [address] [place] [address] [place] [address] 08/18/2024 11:00 AM EDT Office Visit [address] [phone] Velasquez Valencia MD [address] [place] [address] 08/22/2024 10:45 AM EST Scheduled Telephone Care Coordination and Integration [address] [place] [phone] Jaye Roberts, [facility] Epic Anesthesia Analyst [address] [place] [phone] 08/29/2024 9:45 AM EST Scheduled Telephone Care Coordination and Integration [address] [place] [address] Jaye Roberts, [facility] Epic Anesthesia Analyst [address] [facility], [place] [address] 07/09/2025 10:00 AM EDT Office Visit Pulmonary Medicine, [facility] [address] [place] [address] Vishal Wallace MD [address] [facility] [place] [address] Scheduled Procedures Name Priority Associated Diagnoses [...] this encounter Medical Devices Implanted Type Area Shelter Monitor Device Identifier Shelf Expiration Date Model / Serial / Lot Suture Sherwood Dbl Load 4.75mm - [id number] Implanted:Qty: 1 on 12/01/2019 by Judith Condon DO at OR [facility] Right: Shoulder [employer] 07/17/2021 AR-2324BCT -2 / / [id number] Suture [place]wood Dbl Load 5.5mm - [id number] Implanted:Qty: 1 on 12/01/2019 by Judith Condon DO at OR [facility] Right: Shoulder [employer] 09/16/2021 AR-2323BCT -2 / / [id number] documented as of this encounter Visit Diagnoses Diagnosis Gastroparesis- Primary Diabetic polyneuropathy associated with type 2 diabetes mellitus (HCC) DM type 2 causing vascular disease (HCC) Type II or unspecified type diabetes mellitus with peripheral circulatory disorders, not stated as uncontrolled Type 2 diabetes mellitus with hemoglobin A1c goal of less than 7.0% (HCC) Hx of BKA, left (HCC) documented in this encounter Advance Directives * [...] Advance Directives occurred with: Patient Care Teams Apparel Machinery Instructor Relationship Specialty Start Date End Date Velasquez Valencia MD [address] [place] [address] PCP - General Family Medicine 09/09/22 documented as of this encounter
--- OUTSIDE RECORDS SUMMARY | 2024-09-15 11:03 | External Medical Summary | Summary of Care ---
Author Name Unknown Organization [facility] Address [address] [facility] [place] [address] Phone [phone] Care Team Providers Care Subscription Crew Leader Name Role Phone Velasquez Valencia MD Primary Care Provider +1- [phone] Reason for Visit * Reason Onset Date Comments Advice 06/15/2024 Encounter Details Date Type Department Care Team (Late st Contact Info) Description 06/15/2024 Telephone [facility] [address] [place] [address] Velasquez Valencia MD [address] [place] [address] Advice Allergies Active Allergy Reactions Criticality Noted Date Comments Pioglitazone 07/19/2024 Cefaclor Unknown 07/26/2018 As child Empagliflozin Other (Please comment) 05/16/2021 DKA with hospitalization Nsaids High 04/19/2019 Gastric problems Other Reaction(s): gastroparesis, kidney problems, use with caution : hx esophagus damage documented as of this encounter (statuses as of 08/10/2024) Medications Medication Sig Dispensed Refills Start Date [...] over 140 [see chart at bottom of [facility] visit 05/09/24], Reported on 05/09/2024 traMADol HCl 50 MG Oral Tablet (Ultram)Indicati [...] less than 7.0% ([facility]) Use to check blood sugar once daily as needed 100 Strip 4 Active OneTouch Delica Lancets 33GIndications:T ype 2 diabetes mellitus with hemoglobin A1c goal of less than 7.0% ([facility]) Use to check blood sugars once daily as needed 100 Each 4 Active Gabapentin 100 MG Oral Capsule (Neurontin)Indic ations:Neuropath y TAKE 2 CAPSULES BY MOUTH EVERY 12 HOURS 120 Capsule 3 4 Active Famotidine 20 MG Oral [...] Tablet 3 3 07/02/20 24 Discontinued(Re fill) Losartan Potassium 100 MG Oral Tablet (Cozaar) Take 1 Tablet by mouth in the morning. 90 Tablet 3 3 07/19/20 24 Discontinued(Me dication/Dose Changed) Torsemide 10 MG Oral Tablet (Demadex) Take 1 Tablet by mouth in the morning. 30 Tablet 4 06/20/20 24 Discontinued(Re fill) Pantoprazole Sodium 40 MG Oral Tablet Delayed Release (Protonix) TAKE 1 TABLET BY MOUTH TWICE A DAY 180 Tablet 1 4 07/03/20 24 Discontinued Pioglitazone HCl 45 MG Oral Tablet (Actos)Indicatio ns:Type 2 diabetes mellitus with hemoglobin A1c goal of less than 7.0% ([facility]) Take 1 Tablet by mouth in the morning. Please fill in about a month- patient is going to be using up his current supply of 15 mg and 30 mg tablets. 90 Tablet 4 4 07/18/20 24 Discontinued(En d of Procedure) hydroCHLOROthiaz silverio 25 MG Oral Tablet (Hydrodiuril) Take 1 Tablet by mouth in the morning. 3 07/19/20 24 Discontinued(Me dication/Dose Changed) Lidocaine 4 % External Patch (Aspercreme) Place 1 Patch over 12 hours topically on the skin in the morning. 30 Patch 4 08/07/20 24 Discontinued(Me dication List Clean Up) Metoclopramide HCl 10 MG Oral Tablet (Reglan) take 1 tablet by mouth three times a day 30 MINUTES before MEALS 270 Tablet 1 4 08/07/20 24 Discontinued(Me dication List Clean Up) Dicyclomine HCl 10 MG Oral Capsule (Bentyl) TAKE 1 CAPSULE BY MOUTH FOUR TIMES DAILY 360 Capsule 4 07/20/20 24 Discontinued Movantik 25 MG Oral Tablet (Naloxegol [...] as of this encounter (statuses as of 08/10/2024) Active Problems Problem Noted Date Diagnosed Date [...] as of this encounter (statuses as of 08/10/2024) Resolved Problems Problem Noted Date Diagnosed Date [...] as of this encounter (statuses as of 08/10/2024) Immunizations Name Administration Dates Next Due COVID-19 mRNA, LNP-s, No Pre serve, 2-Dose Series (Pfizer) 10/21/2021,03/01/2021,02/07/2021 H1N1 2009 Influenza, IM 11/04/2009 Pneumococcal Conjugate Vacci ne, 20-valent ([id number]) 07/09/2023 Pneumococcal Polysaccharide PPV23 (Pneumovax) 11/03/2015,02/09/2006 Seasonal [...] No 04/19/2024 Does the household have a [facility] [[email or web address]]lar source of income? (Household - for ages [...] Telephone Encounter - Radha Fair LPN - 08/10/2024 1:34 PM EDT OV notes faxed * Telephone Encounter - Parul Carrion OSA - 08/10/2024 9:50 AM EDT Lisandra farrar [facility] Member Resolution Team calling to have last Office notes from 06/20/24 OT PT Testing Eval any thing to that Supports the Pt why he needs A motorized scooter and lift chair Please fax to [employer] at [phone] [place] * Telephone Encounter - Barbara Mireles LPN [...] and lift chair Caller was transferred to Maynor at the nurse line. documented in this encounter Plan of Treatment Upcoming Encounters Date Type Department Care Team (Late st Contact Info) Description 08/15/2024 12:30 PM EDT Scheduled Telephone Care Coordination and Integration [address] [place] [address] Jaye Roberts, [facility] Senior Budget Analyst [address] [place] [address] 08/18/2024 9:20 AM EDT Office Visit Pharmacy, [place] [address] [place] [address] [facility] [address] [place] [address] 08/18/2024 11:00 AM EDT [facility] [place] [address] [place] [address] Velasquez Valencia MD [address] [place] [address] 08/22/2024 10:45 AM EST Scheduled Telephone Care Coordination and Integration [address] [place] [address] Jaye Roberts, [facility] Senior Budget Analyst [address] [place] [address] 08/29/2024 9:45 AM EST Scheduled Telephone Care Coordination and Integration [address] [place] [address] Jaye Roberts, [facility] Senior Budget Analyst [address] [place] [address] 07/09/2025 10:00 AM EDT Office Visit Pulmonary Medicine, [facility] [address] [facility] [place] [address] Vishal Wallace MD [address] [place] [address] Scheduled Procedures Name Priority Associated Diagnoses Date/Ti [...] 04/19/2024 DISCUSS TOBACCO CESSATION (REFER TO SMARTSET #2709) 07/19/2025 07/19/2024, 10/16/2022 GFR 08/02/2025 08/02/2024, 07/18, [...] this encounter Medical Devices Implanted Type Area Office Receptionist Device Identifier Shelf Expiration Date Model / Serial / Lot Suture [place] Dbl Load 4.75mm - [id number] Implanted:Qty: 1 on 12/01/2019 by Judith Condon DO at OR [facility] Right: Shoulder [employer] 07/17/2021 AR-2324BCT -2 / / [id number] Suture [place] Dbl Load 5.5mm - [id number] Implanted:Qty: 1 on 12/01/2019 by Judith Condon DO at OR [facility] Right: Shoulder [employer] 09/16/2021 AR-2323BCT -2 / / [id number] documented as of this encounter Advance Directives [...] Advance Directives occurred with: Patient Care Teams Subscription Crew Leader Relationship Specialty Start Date End Date Velasquez Valencia MD [address] [place] [facility] [address] PCP - General Family Medicine 09/09/22 documented as of this encounter
--- OUTSIDE RECORDS SUMMARY | 2024-09-15 11:03 | External Medical Summary | Summary of Care ---
Author Name Unknown Organization [facility] Address [address] [place] [address] Phone [phone] Care Team Providers Care Straightening Press Operator Name Role Phone Velasquez Valencia MD Primary Care Provider +1- [phone] Encounter Details Date Type Department Care Team (Late st Contact Info) Description 08/08/2024 2:30 PM EDT Scheduled Telephone Care Coordination and Integration [address] [place] [address] Jaye Roberts, Community Health Go Cart Mechanic [address] [place] [address] Allergies Active Allergy Reactions Criticality Noted Date Comments Pioglitazone 07/19/2024 Cefaclor Unknown 07/26/2018 As child Empagliflozin Other (Please comment) 05/16/2021 DKA with hospitalization Nsaids High 04/19/2019 Gastric problems Other Reaction(s): gastroparesis, kidney problems, use with caution : hx esophagus damage documented as of this encounter (statuses as of 08/08/2024) Medications Medication Sig Dispensed Refills Start Date [...] Respimat 2.5 MCG/ACT Inhalation Aerosol Solution (Tiotropium [place] Monohydrate) Inhale 2 Puffs by mouth in the morning. 1 Each 2 07/04/2024 Active Dexcom G6 SensorIndications: Type 2 diabetes mellitus with hemoglobin A1c goal of less than 7.0% ([facility]) Use as directed every 10 days. 9 Each 5 07/18/2024 Active Dexcom G6 TransmitterIndicat ions:Type 2 diabetes mellitus with hemoglobin A1c goal of less than 7.0% ([facility]) Use as directed. Change every 90 days [...] as of this encounter (statuses as of 08/08/2024) Active Problems Problem Noted Date Diagnosed Date [...] as of this encounter (statuses as of 08/08/2024) Resolved Problems Problem Noted Date Diagnosed Date [...] as of this encounter (statuses as of 08/08/2024) Immunizations Name Administration Dates Next Due COVID-19 mRNA, LNP-s, No Pre serve, 2-Dose Series ([employer]) 10/21/2021,03/01/2021,02/07/2021 H1N1 2009 Influenza, IM 11/04/2009 Pneumococcal Conjugate Vacci ne, 20-valent ([id number]) 07/09/2023 Pneumococcal Polysaccharide PPV23 (Pneumovax) 11/03/2015,02/09/2006 Seasonal [...] Progress Notes * Jaye Roberts, Community Health Go Cart Mechanic - 08/08/2024 4:22 PM EDT Telemedicine visit: No Community Health Go Cart Mechanic (AGA) documentation: [facility] outbound call to patient Stomach and back pain ongoing patient is hoping to get some relief soon Dr. Valencia is working on getting him into a clinic that specializes in gastroenterology Patient is nauseated and a lot of discomfort Denies fever Patient does have AMC scale but with being sick has not been able to set it up Denies Swelling Bowels moved today but usually do not move in days Has not gotten appointment with gastroenterology to date Jaye Roberts [facility] Community Health Worker Call or Text- [phone] documented in this encounter Plan of Treatment Upcoming Encounters Date Type Department Care Team (Late st Contact Info) Description 08/15/2024 12:30 PM EDT Scheduled Telephone Care Coordination and Integration [address] [place] [address] Jaye Roberts Community Health Go Cart Mechanic [address] [place] [address] 08/18/2024 9:20 AM EDT Office Visit Pharmacy, [place] [address] [place] [address] [place] [facility] [address] [place] [address] 08/18/2024 11:00 AM EDT Office Visit Family [facility], [place] [address] [place] [phone] Velasquez Valencia MD [address] [place] [address] 08/22/2024 10:45 AM EST Scheduled Telephone Care Coordination and Integration [address] [place] [address] Jaye Roberts Community Health Go Cart Mechanic [address] [place] [address] 08/29/2024 9:45 AM EST Scheduled Telephone Care Coordination and Integration [address] [place] [address] Jaye Roberts Community Health Go Cart Mechanic [address] [place] [address] 07/09/2025 10:00 AM EDT Office Visit Pulmonary Medicine, [facility] [address] [facility] [place] [address] Vishal Wallace MD [address] [place] [address] Scheduled Procedures Name Priority Associated Diagnoses Date/Ti [...] 04/19/2024 DISCUSS TOBACCO CESSATION (REFER TO SMARTSET #2795) 07/19/2025 07/19/2024, 10/16/2022 GFR 08/02/2025 08/02/2024, 07/18, [...] this encounter Medical Devices Implanted Type Area Solar Photovoltaic Electrician Device Identifier Shelf Expiration Date Model / Serial / Lot Suture Harmony Dbl Load 4.75mm - [id number] Implanted:Qty: 1 on 12/01/2019 by Judith Condon DO at OR [facility] Right: Shoulder [employer] 07/17/2021 AR-2324BCT -2 / / [id number] Suture [place]ony Dbl Load 5.5mm - [id number] Implanted:Qty: 1 on 12/01/2019 by Judith Condon DO at OR [facility] Right: Shoulder [employer] 09/16/2021 AR-2323BCT -2 / / [id number] documented as of this encounter Advance Directives [...] Advance Directives occurred with: Patient Care Teams Straightening Press Operator Relationship Specialty Start Date End Date Velasquez Valencia MD [address] [facility] [place] [address] PCP - General Family Medicine 09/09/22 documented as of this encounter
--- OUTSIDE RECORDS SUMMARY | 2024-09-15 11:03 | External Medical Summary | Summary of Care ---
Author Name Unknown Organization [facility] Address [address] [place] [address] Phone [phone] Care Team Providers Care Business Development Recruiter Name Role Phone Velasquez Valencia MD Primary Care Provider +1- [phone] Encounter Details Date Type Department Care Team (Late st Contact Info) Description 08/15/2024 12:30 PM EDT Scheduled Telephone Care Coordination and Integration [address] [place] [address] Jaye Roberts, Community Health Cable Mechanic [address] [place] [address] Allergies Active Allergy Reactions Criticality Noted Date Comments Pioglitazone 07/19/2024 Cefaclor Unknown 07/26/2018 As child Empagliflozin Other (Please comment) 05/16/2021 DKA with hospitalization Nsaids High 04/19/2019 Gastric problems Other Reaction(s): gastroparesis, kidney problems, use with caution : hx esophagus damage documented as of this encounter (statuses as of 08/15/2024) Medications Medication Sig Dispensed Refills Start Date [...] of less than 7.0% ([facility]) Use to check blood sugar once daily as needed 100 Strip 05/09/2024 Active OneTouch Delica Lancets 33GIndications:Typ e 2 diabetes mellitus with hemoglobin A1c goal of less than 7.0% ([facility]) Use to check blood sugars once [...] of less than 7.0% ([facility]) Take 2 Tablets by mouth in [...] Respimat 2.5 MCG/ACT Inhalation Aerosol Solution (Tiotropium [place] Monohydrate) Inhale 2 Puffs by mouth in the morning. 1 Each 2 07/04/2024 Active Dexcom G6 SensorIndications: Type 2 diabetes mellitus with hemoglobin A1c goal of less than 7.0% ([facility]) Use as directed every 10 days. 9 Each 5 07/18/2024 Active Dexcom G6 TransmitterIndicat ions:Type 2 diabetes mellitus with hemoglobin A1c goal of less than 7.0% ([facility]) Use as directed. Change every 90 [...] as of this encounter (statuses as of 08/15/2024) Active Problems Problem Noted Date Diagnosed Date [...] as of this encounter (statuses as of 08/15/2024) Resolved Problems Problem Noted Date Diagnosed Date [...] as of this encounter (statuses as of 08/15/2024) Immunizations Name Administration Dates Next Due COVID-19 mRNA, LNP-s, No Pre serve, 2-Dose Series ([employer]) 10/21/2021,03/01/2021,02/07/2021 H1N1 2009 Influenza, IM 11/04/2009 Pneumococcal Conjugate Vacci ne, 20-valent ([id number]) 07/09/2023 Pneumococcal Polysaccharide PPV23 (Pneumovax) 11/03/2015,02/09/2006 Seasonal [...] Progress Notes * Jaye Roberts, Community Health Cable Mechanic - 08/15/2024 2:04 PM EDT Telemedicine visit: No Community Health Cable Mechanic (AGA) documentation: CHW outbound call to patient Denies Swelling Denies Shortness of Breath Denies Fever/Chills Denies Nausea/Vomiting Weight is around 340 Patient using wheelchair He is having some discomfort in his knees Is having abdominal pain on and off Has Gastroenterology appointment 08/22/24 He has not had therapy, using his prosthetic Jaye Roberts [facility] Community Health Worker Call or Text- [phone] documented in this encounter Plan of Treatment Upcoming Encounters Date Type Department Care Team (Late st Contact Info) Description 08/18/2024 9:20 AM EDT Office Visit Pharmacy, [place] [address] [place] [address] [place] [facility] [address] [place] [address] 08/18/2024 11:00 AM EDT Office Visit Family Practice, [place] [address] [place] [address] Velasquez Valencia MD [address] [place] [address] 08/22/2024 10:45 AM EST Scheduled Telephone Care Coordination and Integration [facility] [place] [address] Jaye Roberts, Community Health Cable Mechanic [address] [place] [address] 08/22/2024 1:50 PM EST Office Visit Gastroenterology, [place] [address] [place] [address] Brook Steiner DO [address] [place] [address] 08/29/2024 9:45 AM EST Scheduled Telephone Care Coordination and Integration [facility] [place] [address] Jaye Roberts, Community Health Cable Mechanic [address] [place] [address] 07/09/2025 10:00 AM EDT Office Visit Pulmonary Medicine, [facility] [address] [facility] [place] [address] Vishal Wallace MD [address] [place] [address] Scheduled Procedures Name Priority Associated Diagnoses Date/Ti [...] 04/19/2024 DISCUSS TOBACCO CESSATION (REFER TO SMARTSET #8061) 07/19/2025 07/19/2024, 10/16/2022 GFR 08/02/2025 08/02/2024, 07/18, [...] this encounter Medical Devices Implanted Type Area Substation Manager Device Identifier Shelf Expiration Date Model / Serial / Lot Suture [place] Dbl Load 4.75mm - [id number] Implanted:Qty: 1 on 12/01/2019 by Judith Condon DO at OR [facility] Right: Shoulder [employer] 07/17/2021 AR-2324BCT -2 / / [id number] Suture [place] Dbl Load 5.5mm - [id number] Implanted:Qty: 1 on 12/01/2019 by Judith Condon DO at OR [facility] Right: Shoulder [employer] 09/16/2021 AR-2323BCT -2 / / [id number] documented as of this encounter Advance Directives [...] Advance Directives occurred with: Patient Care Teams Business Development Recruiter Relationship Specialty Start Date End Date Velasquez Valencia MD [address] [place] [address] PCP - General Family Medicine 09/09/22 documented as of this encounter
--- OUTSIDE RECORDS SUMMARY | 2024-09-15 11:03 | External Medical Summary | Summary of Care ---
Author Name Unknown Organization [facility] Address [address] [facility] [place] [address] Phone [phone] Care Team Providers Care Machine Maintenance Technician Name Role Phone Velasquez Valencia MD Primary Care Provider +1- [phone] Reason for Visit * Reason Onset Date Comments Advice 06/15/2024 Encounter Details Date Type Department Care Team (Late st Contact Info) Description 06/15/2024 Telephone [facility] [address] [place] [address] Velasquez Valencia MD [address] [place] [address] Advice Allergies Active Allergy Reactions [...] over 140 [see chart at bottom of [facility] visit 05/09/24], Reported on 05/09/2024 [email or web address] [...] 7.0% ([facility]) Take 1 Tablet by mouth [...] IM 11/04/2009 Pneumococcal Conjugate Vacci ne, 20-valent ([id number]) 07/09/2023 Pneumococcal Polysaccharide PPV23 (Pneumovax) 11/03/2015,02/09/2006 Seasonal [...] No 04/19/2024 Does the household have a [facility] source of income? (Household - [...] encounter Miscellaneous Notes * Telephone Encounter - Parul Carrion OSA - 08/10/2024 9:50 AM EDT Lisandra from [facility] Member Resolution Team calling to have last Office notes from 06/20/24 OT PT Testing Eval any thing to that Supports the Pt why he needs A motorized scooter and lift chair Please fax to [facility] at [phone] [place] * Telephone Encounter - Barbara Mireles [...] Telephone Care Coordination and Integration [address] [place] [address] Jaye Roberts, Community Health Tap And Die Maker Technician [address] [place] [address] 08/18/2024 9:20 AM EDT Office Visit Pharmacy, [place] [address] [place] [address] [place] [facility] [address] [place] [address] 08/18/2024 11:00 AM EDT Office Visit Family Practice, [place] [address] [place] [phone] Velasquez Valencia MD [address] [place] [address] 08/22/2024 10:45 AM EST Scheduled Telephone Care Coordination and Integration [address] [place] [address] Jaye Roberts, Community Health Tap And Die Maker Technician [address] [place] [address] 08/29/2024 9:45 AM EST Scheduled Telephone Care Coordination and Integration [address] [place] [address] Jaye Roberts, Community Health Tap And Die Maker Technician [address] [place] [address] 07/09/2025 10:00 AM EDT Office Visit Pulmonary Medicine, [facility] [address] [facility] [place] [address] Vishal Wallace MD [address] [place] [address] Scheduled Procedures Name Priority Associated Diagnoses Date/Ti [...] this encounter Medical Devices Implanted Type Area Nursery Worker Device Identifier Shelf Expiration Date Model / Serial / Lot Suture [place] Dbl Load 4.75mm - [id number] Implanted:Qty: 1 on 12/01/2019 by Judith Condon DO at OR [facility] Right: Shoulder [employer] 07/17/2021 AR-2324BCT -2 / / [id number] Suture [place] Dbl Load 5.5mm - [id number] Implanted:Qty: 1 on 12/01/2019 by Judith Condon DO at OR [facility] Right: Shoulder [employer] 09/16/2021 AR-2323BCT -2 / / [id number] documented as of this encounter Advance Directives [...] Advance Directives occurred with: Patient Care Teams Machine Maintenance Technician Relationship Specialty Start Date End Date Velasquez Valencia MD [address] [facility] [place] [address] PCP - General Family Medicine 09/09/22 documented as of this encounter
--- OUTSIDE RECORDS SUMMARY | 2024-09-15 11:04 | External Medical Summary | Summary of Care ---
Author Name Unknown Organization [facility] Address [address] [facility] [place] [address] Phone [phone] Care Team Providers Care Music Leader Name Role Phone Velasquez Valencia MD Primary Care Provider +1- [phone] Reason for Visit * Reason Onset Date Comments Advice 08/02/2024 Encounter Details Date Type Department Care Team (Late st Contact Info) Description 08/02/2024 Telephone Gastroenterology, [facility] [address] [place] [address] Belen Jones DO [address] [place] [address] Advice Allergies Active Allergy Reactions Criticality Noted Date Comments Pioglitazone 07/19/2024 Cefaclor Unknown 07/26/2018 As child Empagliflozin Other (Please comment) 05/16/2021 DKA with hospitalization Nsaids High 04/19/2019 Gastric problems Other Reaction(s): gastroparesis, kidney problems, use with caution : hx esophagus damage documented as of this encounter (statuses as of 08/02/2024) Medications Medication Sig Dispensed Refills Start Date [...] of less than 7.0% ([facility]) Use to check blood sugar once daily as needed 100 Strip 05/09/2024 Active OneTouch Delica Lancets 33GIndications:Typ e 2 diabetes mellitus with hemoglobin A1c goal of less than 7.0% ([facility]) Use to check blood sugars once [...] Respimat 2.5 MCG/ACT Inhalation Aerosol Solution (Tiotropium [place] Monohydrate) Inhale 2 Puffs by mouth in [...] as of this encounter (statuses as of 08/02/2024) Active Problems Problem Noted Date Diagnosed Date [...] as of this encounter (statuses as of 08/02/2024) Resolved Problems Problem Noted Date Diagnosed Date Resolved Date S/P hardware removal 03/03/2024 024 Ankle wound, left, initial encounter 03/03/2024 05/24/2024 Cellulitis of left lower extremity 03/03/2024 05/24/2024 Acute pancreatitis 12/12/2023 Thrush 12/12/2023 01/14/2024 Fall 11/01/2023 05/24/2024 Hypertensive emergency 10/30/202305/24 Elevated troponin 10/30/2023 05/24/2024 Sepsis 10/28/2023 01/14/2024 Nausea and vomiting 10/27/2023 05/24/20 Abdominal pain, generalized 10/27/2023 05/24/2024 Charcot ankle, [...] as of this encounter (statuses as of 08/02/2024) Immunizations Name Administration Dates Next Due COVID-19 mRNA, LNP-s, No Pre serve, 2-Dose Series ([employer]) 10/21/2021,03/01/2021,02/07/2021 H1N1 2009 Influenza, IM 11/04/2009 Pneumococcal Conjugate Vacci ne, 20-valent ([id number]) 07/09/2023 Pneumococcal Polysaccharide PPV23 (Pneumovax) 11/03/2015,02/09/2006 Seasonal [...] Telephone Encounter - Velasquez Valencia MD - 08/02/2024 5:51 PM EDT Noted - duplicate message. Pt appears to be at [facility] now * Telephone Encounter - Nini Preeira OSA - 08/02/2024 11:22 AM EDT Images from the original note were not included. Madison Azul LPN 08/02/24 10:10 AM Note Pt's EC Ni is calling. Pt is at [facility] to have a scope done. Dr. Jones will not perform the EGD due to pt having food in his stomach and would not admit the pt. States that the pt has not ate in 2 days. Pt is having stomach pain at this time 04/26. Sx are getting worse not better. Stomach is distended-has bloating. Pt feels miserable. Having a lot of constipation- does not have routine BM's. Every time pt eats he feels nauseated. Is taking 30 mg daily of Lasix and yesterday pt barley urinated but slept majority of the day. Is asking if she takes the pt to [facility], if they would admit him, clean the pt out and then see the specialist there that PCP mentioned at last OV? Is hoping to take the pt to [facility] from [facility]. Please advise. 08/02/24 10:10 AM Madison Azul LPN routed this conversation to Velasquez Valencia MD * Telephone Encounter - Belen Jones DO - 08/02/2024 9:00 AM EDT The patient was to have upper endoscopy and endoscopic ultrasound today. Unfortunately we are unable to complete the exam is as the patient had a large amount of retained contents within the stomach. Plan Reschedule EGD and EUS Liquid diet for 24 hours in advance Reglan 5 mg every 6 hours for 1 day prior to next EGD EUS attempt documented in this encounter Plan of Treatment Upcoming Encounters Date Type Department Care Team (Late st Contact Info) Description 08/03/2024 10:15 AM EDT Office Visit Orthopaedics [facility] [address] [place] [address] Augie Dejesus PA-C [address] [place] [address] 08/18/2024 9:20 AM EDT [facility] [place] [address] [facility] [address] [place] [address] [facility] [address] 08/18/2024 11:00 AM EDT Office Visit [facility], [place] [address] [facility] [phone] Velasquez Valencia [facility] [address] [facility] [address] 07/09/2025 10:00 AM EDT Office Visit Pulmonary Medicine, [facility] [place] [address] Vishal Wallace MD [address] [facility] [place] [id number] Scheduled Procedures Name Priority Associated Diagnoses Date/Ti me ESOPHAGOGASTRODUODENOSCOPY ( EGD), FLEXIBLE, TRANSORAL, ENDOSCOPIC ULTRASOUND Acute pancreatitis 08/02/2024 8:34 AM EDT COLONOSCOPY FLEXIBLE PROXIMA L DIAGNOSTIC [...] (Patient Declined After Education) HbA1c 11/09/2024 05/09/2024, 2 10/2023, 01/14/2024, Additional [...] this encounter Medical Devices Implanted Type Area It Risk And Assurance Manager Device Identifier Shelf Expiration Date Model / Serial / Lot Suture [place] Dbl Load 4.75mm - [id number] Implanted:Qty: 1 on 12/01/2019 by Judith Condon DO at OR [facility] Right: Shoulder [employer] 07/17/2021 AR-2324BCT -2 / / [id number] Suture [place] Dbl Load 5.5mm - [id number] Implanted:Qty: 1 on 12/01/2019 by Judith Condon DO at OR [facility] Right: Shoulder [employer] 09/16/2021 AR-2323BCT -2 / / [id number] documented as of this encounter Advance Directives [...] Advance Directives occurred with: Patient Care Teams Music Leader Relationship Specialty Start Date End Date Velasquez Valencia MD [address] [place] [facility] [place] [address] PCP - General Family Medicine 09/09/22 documented as of this encounter
--- OUTSIDE RECORDS SUMMARY | 2024-09-15 11:04 | External Medical Summary | Summary of Care ---
Author Name Unknown Organization [facility] Address [address] [facility] [address] Phone [phone] Care Team Providers Care Saw Runner Name Role Phone Velasquez Valencia MD Primary Care Provider +1- [phone] Reason for Visit * Reason Comments Follow Up R knee Euflexxa #3 * Precert (Diagnostic Medical) (Within 30 days (routine)) - Closed Specialty Diagnoses / Procedures Referred By Bismark t Referred To Contact Diagnoses Unilateral primary osteoarthritis, right knee Procedures EUFLEXXA, INTRA-ARTICULAR INJ, PER DOSE Casey Smith MD [address] [place] [address] Casey Smith MD [address] [place] [address] Referral ID Status Reason Start Date Expiration Date V isits Requested Visits Authorized [id number] Closed Precert 07/13/2024 01/10/2025 3 3 Encounter Details Date Type Department Care Team (Latest Contact Info) Description 08/03/2024 10:15 AM EDT Office Visit Orthopaedics [facility] [address] [place] [address] Augie Dejesus PA-C [address] [place] [address] Primary osteoarthritis of right knee* Allergies Active [...] Respimat 2.5 MCG/ACT Inhalation Aerosol Solution (Tiotropium [place] Monohydrate) Inhale 2 Puffs by mouth in the morning. 1 Each 2 07/04/2024 4 Active Additional Information Patient not taking.Reported on 08/02/2024 Dexcom G6 SensorIndications: Type 2 diabetes mellitus with hemoglobin A1c goal of less than 7.0% (HCC) Use as directed every 10 days. 9 Each 5 07/18/2024 Active Dexcom G6 TransmitterIndicat ions:Type 2 diabetes mellitus with hemoglobin A1c goal of less than 7.0% ([facility]) Use as directed. Change every 90 [...] mouth daily 180 Tablet 3 07/28/2024 Active Hospital, Clinic, or Other Facility Administered Medication Ordered Dose Route Frequency Start Date End Date Status Sodium Hyaluronate (Viscosup) (Euflexxa/Hyalgan) 20 MG/2ML inj 20 mgIndications:Primary osteoarthritis of right knee 20 mg IX ONCE 08/03/2024 08/03/2024 Ended documented as of this encounter (statuses [...] IM 11/04/2009 Pneumococcal Conjugate Vacci ne, 20-valent ([id number]) 07/09/2023 Pneumococcal Polysaccharide PPV23 (Pneumovax) 11/03/2015,02/09/2006 Seasonal [...] Progress Notes * Augie Dejesus PA-C - 08/03/2024 10:08 AM EDTAssociated Order(s): LG Joint Inj/Arthro: R knee Post-Procedure Diagnose(s): Primary osteoarthritis of right knee Here today for 3rd and final injection Euflexxa right knee. Reports he continues to experience relief and is pleased. Certainly, nothing significant and no reported worsening symptoms. Pleased with results and care thus far. No other questions concerns. Complete review systems negative Exam unchanged, please see prior note Impression: Right knee osteoarthritis Plan: Today 's findings were discussed with the patient. They were educated regarding their diagnosis. Multiple treatment options discussed and agreed upon, including 3rd and final injection Euflexxatoday. Follow up in 6 months for reconsideration of subsequent injection series. The patient has noother questions or concerns. Pleased with today 's care. Call sooner if needed. LG Joint Inj/Arthro: R knee on 08/03/2024 10:09 AM Indications: pain Details: 22 G needle, anterolateral approach Medications: (Euflexxa) Outcome: tolerated well, no immediate complications Procedure, treatment alternatives, risks and benefits explained, specific risks discussed. Consent was given by the patient. Immediately prior to procedure a time out was called to verify the correctpatient, procedure, equipment, systems support engineer and site/side marked as required. Patient was prepped and draped in the usual sterile fashion. This chart was completed in part utilizing [employer] Speech Voice Recognition Software. Grammatical errors, random word insertions, prounoun errors, and incomplete sentences are an occasional consequence of this system due to software limitations, ambient noise, and hardware issues. Any formal questions or concerns about the content, text, or information contain documented in this encounter Nursing Notes * Lula Castellon CMA - 08/03/2024 9:59 AM EDT R knee Euflexxa #3 documented in this encounter Plan of Treatment Upcoming Encounters Date Type Department Care Team (Late st Contact Info) Description 08/07/2024 2:00 PM EDT Office Visit [address] [phone] Velasquez Valencia MD [address] [place] [address] 08/18/2024 9:20 AM EDT [facility] [place] [address] [place] [address] [facility] [address] [place] [address] 08/18/2024 11:00 AM EDT Office Visit [address] [place] [phone] Velasquez Valencia MD [address] [place] [address] 07/09/2025 10:00 AM EDT Office Visit Pulmonary Medicine, [facility] [address] [place] [address] Vishal Wallace MD [address] [place] [address] Scheduled Procedures Name Priority Associated Diagnoses Date/Ti [...] 04/19/2024 DISCUSS TOBACCO CESSATION (REFER TO SMARTSET #1350) 07/19/2025 07/19/2024, 10/16/2022 GFR 08/02/2025 08/02/2024, 07/18, [...] this encounter Medical Devices Implanted Type Area Cardiac Tech Device Identifier Shelf Expiration Date Model / Serial / Lot Suture [place] Dbl Load 4.75mm - [id number] Implanted:Qty: 1 on 12/01/2019 by Judith Condon DO at OR [facility] Right: Shoulder [employer] 07/17/2021 AR-2324BCT -2 / / [id number] Suture [place] Dbl Load 5.5mm - [id number] Implanted:Qty: 1 on 12/01/2019 by Judith Condon DO at OR [facility] Right: Shoulder [employer] 09/16/2021 AR-2323BCT -2 / / [id number] documented as of this encounter Procedures Procedure Name Priority Date/Time Associated Diagnosis Comments MD ARTHROCENTESIS ASPIR&/INJ MAJOR JT/BURSA W/O US Routine 08/03/2024 10:09 AM EDT Primary osteoarthritis of right knee documented in this encounter Results * MD ARTHROCENTESIS ASPIR&/INJ MAJOR JT/BURSA W/O US (08/03/2024 10:09 AM EDT) Narrative Augie Dejesus PA-C - 08/03/2024 10:09 AM EDT Augie Dejesus PA-C 08/03/2024 10:10 AM LG Joint Inj/Arthro: R knee on 08/03/2024 10:09 AM Indications: pain Details: 22 G needle, anterolateral approach Medications: (Euflexxa) Outcome: tolerated well, no immediate complications Procedure, treatment alternatives, risks and benefits explained, specific risks discussed. Consent was given by the patient. Immediately prior to procedure a time out was called to verify the correct patient, procedure, equipment, systems support engineer and site/side marked as required. Patient was prepped and draped in the usual sterile fashion. Augie Dejesus PA-C PROCDOC FORM documented in this encounter Visit Diagnoses Diagnosis Primary osteoarthritis of right knee- Primary Primary localized osteoarthrosis, lower leg documented in this encounter Administered Medications Inactive Administered Medications - up to 3 most recent administrations Medication Order MAR Action Action Date Dose Rate Site Sodium Hyaluronate (Viscosup) (Euflexxa/Hyalgan) 20 MG/2ML inj 20 mg 20 mg, Intra-Articular, ONCE, On Swapna 08/03/24 at 1045, For 1 dose Given 08/03/2024 10:09 AM EDT 20 mg Knee Right documented [...] Advance Directives occurred with: Patient Care Teams Saw Runner Relationship Specialty Start Date End Date Velasquez Valencia MD [address] [place] [facility] [place] [address] PCP - General Family Medicine 09/09/22 documented as of this encounter
--- OUTSIDE RECORDS SUMMARY | 2024-09-15 11:04 | External Medical Summary | Summary of Care ---
Author Name Unknown Organization [facility] Address [address] [facility] [address] Phone [phone] Care Team Providers Care Wrapper Hand Name Role Phone Velasquez Valencia MD Primary Care Provider +1- [phone] Reason for Visit * Reason Onset Date Comments Referral 08/02/2024 Encounter Details Date Type Department Care Team (Late st Contact Info) Description 08/02/[address] [facility] [address] [place] [address] Velasquez Valencia MD [address] [place] [address] Referral Allergies Active Allergy Reactions Criticality Noted Date [...] Respimat 2.5 MCG/ACT Inhalation Aerosol Solution (Tiotropium [place] Monohydrate) Inhale 2 Puffs by mouth in [...] mRNA, LNP-s, No Pre serve, 2-Dose Series ([place]) 10/21/2021,03/01/2021,02/07/2021 H1N1 2009 Influenza, IM 11/04/2009 Pneumococcal Conjugate Vacci ne, 20-valent ([id number]) 07/09/2023 Pneumococcal Polysaccharide PPV23 (Pneumovax) 11/03/2015,02/09/2006 Seasonal [...] Encounter - Velasquez Valencia MD - 08/02/2024 5:47 PM EDT I cannot say if he will be admitted if they go to [facility]. I had mentioned that he may need to seea lpn private duty with a specialty in motility. Review of the chart indicates that they went to [facility]. Will see how that evaluation goes and what is offered to them. * Telephone Encounter - Madison Azul LPN - 08/02/2024 9:57 AM EDT Pt's EC Ni is calling. Pt is at [facility] to have a scope done. Dr. [...] asking if she takes the pt to [facility], if they would admit him, clean the pt out and then see the specialist there that PCP mentioned at last OV? Is hoping to take the pt to [facility] from [facility]. Please advise. * Telephone Encounter - Shelley Mason OSA - 08/02/2024 9:53 AM EDT Reason for patient's call: Ni would like to speak to a nurse about pt cannot have test done. Caller was transferred to [facility] at the nurse line. documented in this encounter Plan of Treatment Upcoming Encounters Date Type Department Care Team (Late st Contact Info) Description 08/03/2024 10:15 AM EDT Office Visit Orthopaedics [facility] [address] [place] [address] Augie Dejesus PA-C [address] [place] [address] 08/18/2024 9:20 AM EDT Office Visit Pharmacy, [place] [address] [place] [address] [facility] [address] [place] [address] 08/18/2024 11:00 AM EDT Office Visit Family Practice, [place] [address] [place] [place] [phone] Velasquez Valencia MD [address] [place] [address] 07/09/2025 10:00 AM EDT Office Visit Pulmonary Medicine, [facility] [address] [place] [address] Vishal Wallace MD [address] [place] [address] Scheduled Procedures Name Priority Associated Diagnoses Date/Ti [...] encounter Medical Devices Implanted Type Area Retail Personal Banker Device Identifier Shelf Expiration Date Model / Serial / Lot Suture [place] Dbl Load 4.75mm - [id number] Implanted:Qty: 1 on 12/01/2019 by Judith Condon DO at OR [facility] Right: Shoulder [employer] 07/17/2021 AR-2324BCT -2 / / [id number] Suture [place] Dbl Load 5.5mm - [id number] Implanted:Qty: 1 on 12/01/2019 by Judith Condon DO at OR [facility] Right: Shoulder [employer] 09/16/2021 AR-2323BCT -2 / / [id number] documented as of this encounter Advance Directives [...] Advance Directives occurred with: Patient Care Teams Wrapper Hand Relationship Specialty Start Date End Date Velasquez Valencia MD [address] [facility] [place] [address] PCP - General Family Medicine 09/09/22 documented as of this encounter
--- OUTSIDE RECORDS SUMMARY | 2024-09-15 11:04 | External Medical Summary | Summary of Care ---
Author Name Unknown Organization [facility] Address [address] [facility] [address] Phone [phone] Care Team Providers Care Tar Pot Man Name Role Phone Velasquez Valencia MD Primary Care Provider +1- [phone] Reason for Visit * Reason Onset Date Comments Advice 08/02/2024 Unable to do End oscopy Encounter Details Date Type Department Care Team (Late st Contact Info) Description 08/02/2024 Telephone [facility] [address] [place] [address] Velasquez Valencia MD [address] [place] [address] Advice (Unable to do Endoscopy) Allergies Active Allergy Reactions Criticality Noted Date [...] over 140 [see chart at bottom of [facility] visit 05/09/24], Reported on 05/09/2024 [...] goal of less than 7.0% ([facility]) Use to check blood sugar once daily as needed 100 Strip 05/09/2024 Active OneTouch Delica Lancets 33GIndications:Typ e 2 diabetes mellitus with hemoglobin A1c goal of less than 7.0% ([facility]) Use to check blood sugars once daily [...] Respimat 2.5 MCG/ACT Inhalation Aerosol Solution (Tiotropium [place] Monohydrate) Inhale 2 Puffs by mouth in [...] mRNA, LNP-s, No Pre serve, 2-Dose Series ([employer]) 10/21/2021,03/01/2021,02/07/2021 H1N1 2009 Influenza, IM 11/04/2009 Pneumococcal Conjugate Vacci ne, 20-valent ([id number]) 07/09/2023 Pneumococcal Polysaccharide PPV23 (Pneumovax) 11/03/2015,02/09/2006 Seasonal [...] Telephone Encounter - Maura Ramirez LPN - 08/02/2024 12:14 PM EDT See other telephone encounter. * Telephone Encounter - Colt Haywood OSA - 08/02/2024 9:25 AM EDT Patient's Significant Other Ni calling and states that the patient was unable to undergo the Endoscopy scheduled for this morning due to having food in his stomach. Ni states that the patient has not had anything to eat for 2 days. Patient is in pain and Ni is asking for Dr. Valencia to admit the patient to [facility]. documented in this encounter Plan of Treatment Upcoming Encounters Date Type Department Care Team (Late st Contact Info) Description 08/03/2024 10:15 AM EDT Office Visit Orthopaedics [facility] [address] [place] [address] Augie Dejesus PA-C [address] [place] [address] 08/18/2024 9:20 AM EDT Office Visit Pharmacy, [place] [address] [place] [facility] [place] [address] [facility] [address] [place] [facility] [place] [address] 08/18/2024 11:00 AM EDT Office Visit [facility], [place] [address] [facility] [phone] Velasquez Valencia MD [address] [place] [facility] [place] [address] 07/09/2025 10:00 AM EDT Office Visit Pulmonary Medicine, [facility] [address] [place] [address] Vishal Wallace MD [address] [place] [address] Scheduled Procedures Name Priority [...] 04/19/2024 DISCUSS TOBACCO CESSATION (REFER TO SMARTSET #2070) 07/19/2025 07/19/2024, 10/16/2022 GFR 07/29/2025 07/29/2024, 11/2023, 05/09/2024, Additional history exists O2 ASSESSMENT COMPLETED IN [...] this encounter Medical Devices Implanted Type Area Taping Supervisor Device Identifier Shelf Expiration Date Model / Serial / Lot Suture [place] Dbl Load 4.75mm - [id number] Implanted:Qty: 1 on 12/01/2019 by Judith Condon DO at [facility] Right: Shoulder [employer] 07/17/2021 AR-2324BCT -2 / / [id number] Suture [place] Dbl Load 5.5mm - [id number] Implanted:Qty: 1 on 12/01/2019 by Judith Condon DO at OR [facility] Right: Shoulder [employer] 09/16/2021 AR-2323BCT -2 / / [id number] documented as of this encounter Advance Directives * Full Code (Latest Code Status on File) Date Activated Date Inactivated Comments 08/02/2024 9:00 AM This order re flects the patients wishes and were consensually agreed [...] Advance Directives occurred with: Patient Care Teams Tar Pot Man Relationship Specialty Start Date End Date Velasquez Valencia MD [address] [place] [address] PCP - General Family Medicine 09/09/22 documented as of this encounter
--- OUTSIDE RECORDS SUMMARY | 2024-09-15 11:04 | External Medical Summary | Summary of Care ---
Author Name Unknown Organization [facility] Address [address] [facility] [place] [address] Phone [phone] Care Team Providers Care Crisis Mental Health Therapist Name Role Phone Velasquez Valencia MD Primary Care Provider +1- [phone] Encounter Details Date Type Department Care Team (Late st Contact Info) Description 08/03/2024 Population Health External Data Unspecified Department Allergies [...] less than 7.0% ([facility]) Inject 40 units twice daily- this replaces lantus 54 mL 4 01/19/2024 Active BD Pen Needle Short U/F 31G X 8 MM (Insulin Pen Needle)Indications :Type 2 diabetes mellitus with hemoglobin A1c goal of less than 7.0% ([facility]) Use to inject insulin 5 times daily 500 Each 3 01/19/2024 Active Insulin Aspart FlexPen 100 UNIT/ML Subcutaneous Solution Pen-injectorIndica tions:Type 2 diabetes mellitus with hemoglobin A1c goal of less than 7.0% ([facility]) Inject 32 units with breakfast 22 units [...] less than 7.0% ([facility]) Use to check blood sugar once daily as needed 100 Strip 05/09/2024 Active OneTouch Delica Lancets 33GIndications:Typ e 2 diabetes mellitus with hemoglobin A1c goal of less than 7.0% ([facility]) Use to check blood sugars once daily [...] Respimat 2.5 MCG/ACT Inhalation Aerosol Solution (Tiotropium [place] Monohydrate) Inhale 2 Puffs by mouth in [...] IM 11/04/2009 Pneumococcal Conjugate Vacci ne, 20-valent ([id number]) 07/09/2023 Pneumococcal Polysaccharide PPV23 (Pneumovax) 11/03/2015,02/09/2006 Seasonal [...] 08/03/2024 10:15 AM EDT Office Visit Orthopaedics [facility] [address] [place] [address] Augie Dejesus PA-C [address] [place] [address] 08/18/2024 9:20 AM EDT Office Visit [facility], [place] [address] [facility] [address] [place] [address] [place] [facility] [place] [address] 08/18/2024 11:00 AM EDT Office Visit Family Practice, [place] [address] [facility] [phone] Velasquez Valencia MD [address] [place] [facility] [place] [address] 07/09/2025 10:00 AM EDT Office Visit Pulmonary Medicine, [facility] [address] [facility] [place] [address] Vishal Wallace MD [address] [facility] [address] Scheduled Procedures Name Priority Associated Diagnoses Date/Ti [...] 04/19/2024 DISCUSS TOBACCO CESSATION (REFER TO SMARTSET #3290) 07/19/2025 07/19/2024, 10/16/2022 GFR 08/02/2025 08/02/2024, 07/18, [...] this encounter Medical Devices Implanted Type Area Sandblasting Supervisor Device Identifier Shelf Expiration Date Model / Serial / Lot Suture [place] Dbl Load 4.75mm - [id number] Implanted:Qty: 1 on 12/01/2019 by Judith Condon, at OR [facility] Right: Shoulder [employer] 07/17/2021 AR-2324BCT -2 / / [id number] Suture [place] Dbl Load 5.5mm - [id number] Implanted:Qty: 1 on 12/01/2019 by Judith Condon, at OR [facility] Right: Shoulder [employer] 09/16/2021 AR-2323BCT -2 / / [id number] documented as of this encounter Advance Directives [...] Advance Directives occurred with: Patient Care Teams Crisis Mental Health Therapist Relationship Specialty Start Date End Date Velasquez Valencia MD [address] [place] [address] PCP - General Family Medicine 09/09/22 documented as of this encounter
--- OUTSIDE RECORDS SUMMARY | 2024-09-15 11:04 | External Medical Summary ---
Author Name Unknown Address Unknown Organization K[facility] - [address] [place] [address] Laboratory Report Ordering Provider Test Date Status WAI GILLILAND 08/02/2024 21:02:00 Final Observation Date Value Abnormality Reference (Units ) Status Troponin T 08/02/2024 21:02:00 51 Above high normal < =22 (ng/L) Final Performing Location [facility] [address] [place] [address]
--- OUTSIDE RECORDS SUMMARY | 2024-09-15 11:04 | External Medical Summary ---
Author Name Unknown Address Unknown Organization [facility] - [address] [place] [address] Laboratory Report Ordering Provider Test Date Status WAI GILLILAND 08/02/2024 19:15:00 Final Observation Date Value Abnormality Reference (Units ) Status Troponin T 08/02/2024 19:15:00 43 Above high normal < =22 (ng/L) Final Performing Location [facility] - [address] [place] [address]
--- OUTSIDE RECORDS SUMMARY | 2024-09-15 11:04 | External Medical Summary | Summary of Care ---
Author Name Unknown Organization [facility] Address [address] [facility] [place] [address] Phone [phone] Care Team Providers Care District Ranger Name Role Phone Velasquez Valencia MD Primary Care Provider [phone] Reason for Visit * Auth/Cert Specialty Diagnoses / Procedures Referred By Bismark brown Referred To Contact Diagnoses Acute pancreatitis Acute pancreatitis [K85.90] Procedures EGD, W/ENDOSCOPIC US ESOPHAGOGASTRODUODENOSCOPY (EGD), FLEXIBLE, TRANSORAL, ENDOSCOPIC ULTRASOUND Belen Jones DO [address] [place] [address] Or [facility] [address] [place] [phone] Referral ID Status Reason Start Date Expiration Date Visits Re quested Visits Authorized [id number] Encounter Details Date Type Department Care Team (Latest Contact Info) Description 08/02/2024 7:51 AM EDT - 08/02/2024 9:50 AM EDT Hospital Encounter OR [facility], Operating Room, Main Hospital - 4th Floor [address] [place] [phone] Belen Jones DO [address] [place] [address] Upper GI Endoscopy Discharge Disposition: Home - Self Care Allergies [...] goal of less than 7.0% ([facility]) Inject 40 units twice daily- this replaces lantus 54 mL 4 01/19/2024 Active BD Pen Needle Short U/F 31G X 8 MM (Insulin Pen Needle)Indications :Type 2 diabetes mellitus with hemoglobin A1c goal of less than 7.0% ([facility]) Use to inject insulin 5 times daily 500 Each 3 01/19/2024 Active Insulin Aspart FlexPen 100 UNIT/ML Subcutaneous Solution Pen-injectorIndica tions:Type 2 diabetes mellitus with hemoglobin A1c goal of less than 7.0% ([facility]) Inject 32 units with breakfast 22 [...] over 140 [see chart at bottom of [facility] visit 05/09/24], Reported on 05/09/2024 traMADol [...] (Ultram)Indication s:Abdominal pain, generalized,Phanto m limb pain ([facility]) Take 1 Tablet by mouth every 6 [...] daily as needed 100 Strip 05/09/2024 Active Rosalio Humphrey Lancets 33GIndications:Typ e 2 diabetes mellitus [...] Respimat 2.5 MCG/ACT Inhalation Aerosol Solution (Tiotropium Sassafras Monohydrate) Inhale 2 Puffs by mouth in [...] mRNA, LNP-s, No Pre serve, 2-Dose Series (Crack) 10/21/2021,03/01/2021,02/07/2021 H1N1 2009 Influenza, IM 11/04/2009 Pneumococcal Conjugate Vacci ne, 20-valent ([id number]) 07/09/2023 Pneumococcal Polysaccharide PPV23 (Pneumovax) 11/03/2015,02/09/2006 Seasonal [...] No 04/19/2024 Does the household have a [facility] [...] Sign Reading Time Taken Comments Blood Pressure 150/81 08/02/2024 9:45 AM EDT Pulse 120 08/02/2024 9:45 AM EDT Temperature 36 C (96.8 F) 08/02/2024 9:45 AM EDT Respiratory Rate 20 08/02/2024 9:45 AM EDT Oxygen Saturation 95% 08/02/2024 9:45 AM EDT Inhaled Oxygen Concentration - - Weight 156 kg (344 lb) 08/02/2024 8:03 AM EDT Height 188 cm (6' 2") 08/02/2024 8:03 AM EDT Body Mass Index 44.17 08/02/2024 8:03 AM EDT documented in this encounter Functional [...] No 04/10/2024 documented as of this encounter H&P Notes * Belen Jones, - 08/02/2024 8:34 AM EDT Endoscopy Pre-Procedure Assessment Name: Bry Akhtar JrZach Date: 08/02/2024 Time: 8:34 AM Procedure(s): Upper GI Endoscopy; with Indication(s) of upper abdominal symptoms that persist despite an appropriate trial of therapy Endoscopic Ultrasound; with Indication(s) of evaluation of the abnormalities of the biliary tree Endoscopy Pre-Procedure Assessment: Prior to the procedure, [...] Admission medications Medication Sig Last Dose Discont. Torsemide 10 MG Oral Tablet (Demadex) Take 2 tabs by mouth daily 08/01/2024 Dicyclomine HCl 10 MG Oral Capsule (Bentyl) TAKE 1 CAPSULE BY MOUTH FOUR TIMES DAILY 08/01/2024 Losartan Potassium 50 MG Oral Tablet (Cozaar) Take 1 Tablet by mouth in the morning and 1 Tablet before bedtime. 08/01/2024 Terazosin HCl 1 MG Oral Capsule (Hytrin) Take 1 Capsule by mouth at bedtime. 08/01/2024 Dexcom G6 Sensor Use as directed every 10 days. 08/02/2024 Dexcom G6 Transmitter Use as directed. Change every 90 days 08/02/2024 Famotidine 20 MG Oral Tablet (Pepcid) TAKE ONE TABLET BY MOUTH NIGHTLY AT BEDTIME 08/01/2024 metFORMIN HCl 500 MG Oral Tablet (Glucophage) Take 2 Tablets by mouth in the morning and 2 Tablets in the evening. Past Week Pantoprazole Sodium 40 MG Oral Tablet Delayed Release (Protonix) TAKE 1 TABLET BY MOUTH TWICE A DAY08/01/2024 oxyCODONE HCl 5 MG Oral Tablet (Oxy IR) Take 1 Tablet by mouth every 8 hours as needed for Pain, Severe. 08/01/2024 Cyclobenzaprine HCl 10 MG Oral Tablet (Flexeril) TAKE 1 TABLET BY MOUTH AT BEDTIME ONLY NEEDED Past Week Gabapentin 100 MG Oral Capsule (Neurontin) TAKE 2 CAPSULES BY MOUTH EVERY 12 HOURS 08/01/2024 Movantik 25 MG Oral Tablet (Naloxegol Oxalate) take 1 tablet by mouth in the morning 08/01/2024 OneTouch Delica Lancets 33G Use to check blood sugars once daily as needed Past Month OneTouch Verio In Vitro Strip (Glucose Blood) Use to check blood sugar once daily as needed 08/01/2024 Atorvastatin Calcium 20 MG Oral Tablet (Lipitor) Take 1 Tablet by mouth in the morning. 08/01/2024 Alum & Mag Hydroxide-Simeth 400-400-40 MG/5ML Oral Suspension (Mi-Acid II) Take 15 ml every 6 hours as needed for constipation 08/01/2024 Polyethylene Glycol 3350 17 GM/SCOOP Oral Powder (Miralax) Take 1 scoop daily in 8 ounces of water.08/01/2024 Metoclopramide HCl 10 MG Oral Tablet (Reglan) take 1 tablet by mouth three times a day 30 MINUTES before MEALS 08/01/2024 traMADol HCl 50 MG Oral Tablet (Ultram) Take 1 Tablet by mouth every 6 hours as needed for Pain, Severe. 08/01/2024 Insulin Aspart FlexPen 100 UNIT/ML Subcutaneous Solution Pen-injector Inject 32 units with breakfast 22 units with lunch and 22 units with supper plus CF of 1:12 over 150. Max daily dose of 115 units Patient taking differently: 34 units with breakfast, and 22 units with lunch and 24 units with supper + 10 units with snacks + CF of 1:10 over 140 [see chart at bottom of [facility] visit 05/09/24] Past Week BD Pen Needle Short U/F 31G X 8 MM (Insulin Pen Needle) Use to inject insulin 5 times daily 08/01/2024 Toumeghna SoloStar 300 UNIT/ML Subcutaneous Solution Pen-injector (Insulin Glargine (1 Unit Dial)) Inject 40 units twice daily- this replaces lantus 08/01/2024 Metoprolol Succinate ER 100 MG Oral Tablet Extended Release 24 Hour (toPROL XL) Take 1 tab by mouthtwice per day 08/01/2024 Aspirin 81 MG Oral Tablet Delayed Release Take 1 Tablet by mouth in the morning. 08/01/2024 Spironolactone 25 MG Oral Tablet (Aldactone) Take 1 Tablet by mouth in the morning. 08/01/2024 Metamucil 0.52 GM Oral Capsule (Psyllium) Take 1 Capsule by mouth in the morning and 1 Capsule at noon and 1 Capsule before bedtime. Past Week Ondansetron HCl 4 MG Oral Tablet Take 1 Tablet by mouth every 8 hours as needed for Nausea. Past Week Polyethylene Glycol 3350 17 GM Oral Packet (Miralax) Mix 1 Packet in 4 to 8 ounces of any beverage and drink by mouth in the morning. Past Week Spiriva Respimat 2.5 MCG/ACT Inhalation Aerosol Solution (Tiotropium Sassafras Monohydrate) Inhale 2 Puffs by mouth in the morning. Patient not taking: Reported on 08/02/2024 Not Taking traMADol HCl 50 MG Oral Tablet (Ultram) Take 1 Tablet by mouth every 6 hours as needed for Pain, Severe. Take 1-2 tabs by mouth every 6 hours as needed for severe pain in want to do it due 8 it has been Patient not taking: Reported on 08/02/2024 Not Taking Lidocaine 4 % External Patch (Aspercreme) Place 1 Patch over 12 hours topically on the skin in the morning. Patient not taking: Reported on 07/31/2024 Not Taking Albuterol Sulfate HFA 108 (90 Base) MCG/ACT Inhalation Aerosol Solution inhale 2 puffs by mouth andINTO THE LUNGS every 6 hours if needed for cough shortness of breath or WITHDRAWAL SYMPTOMS Patient not taking: Reported on 08/02/2024 Not Taking Review of patient's allergies indicates: Allergen Reactions Nsaids Gastric problems Other Reaction(s): gastroparesis, kidney problems, use with caution : hx esophagus damage Actos [Pioglitazone] Ceclor [Cefaclor] Unknown As child Jardiance [Empagliflozin] Other (Please comment) DKA with hospitalization BP 171/91 | Pulse 117 | Temp 36.2 C (97.2 F) (Tympanic) | Resp 20 | Ht 1.88 m (6' 2") | Wt (!) 156 kg (344 lb) | SpO2 93% | BMI 44.17 kg/m | BSA 2.85 m Physical Exam: Mental Status Examination: alert and oriented. Airway Examination: normal oropharyngeal airway and neck mobility. Respiratory Examination: poor air movement. CV Examination: regular rate and rhythm. ASA Grade: III - A patient with severe systemic disease. Abdomen: nontender Latest Reference Range & Units 05/09/24 13:59 Albumin 3.8 - 5.0 g/dL 4.2 AST 10 - 50 U/L 12 ALT 10 - 50 U/L 18 Alkaline Phosphatase 35 - 130 U/L 86 Bilirubin, Total <=1.2 mg/dL <0.2 Latest Reference Range & Units 07/19/24 12:39 07/29/24 00:00 SODIUM 135 - 146 mmol/L 135 POTASSIUM 3.5 - 5.1 MMOL/L 5.3 (H) 4.8 (E) CHLORIDE 98 - 107 mmol/L 95 (L) CO2 22 - 32 mmol/L 24 BUN 6 - 20 mg/dL 23 (H) CREATININE 0.70 - 1.30 MG/DL 1.2 1.57 ! (E) EGFR >=60 ML/MIN/1.73M2 73 53 (L) (E) ANION GAP 7 - 15 mmol/L 16 (H) GLUCOSE 70 - 110 MG/DL 320 (H) 290 ! (E) CALCIUM 8.4 - 10.2 mg/dL 9.8 (H): Data is abnormally high (L): Data is abnormally low !: Data is abnormal (E): External lab result This patient has undergone a preprocedural evaluation. A determination has been made to proceed with the planned procedure under [facility] procedural guidelines and the [facility] Non-Emergent, Elective Medical Services and Treatment Recommendations (published on 01-23-20). The community and hospital prevalence of COVID-19 has been discussed as well as this patient's specific risks associated with SARS-CoV-19 infection. Based upon the clinical acuity and patient-specific care considerations, this procedure is deemed a Tier II - Intermediate acuity treatment or service with either progression or the threat of progressive disease related to the delay in treatment. Not providing the service has the potential for increasing morbidity or mortality. After reviewing the risks and benefits, the patient is deemed in satisfactory condition to undergo the procedure. The anesthesia plan is to use general anesthesia. We have discussed the risks and benefits of upper endoscopy to include bleeding, infection, perforation, discomfort, aspiration and need for follow-up studies. I have discussed the risks and benefits of EUS to include (not limited to) bleeding, infection, perforation, pain, aspiration, cardiac complications, pancreatitis and insufficient cellularity. Belen Jones DO 08/02/2024 documented in this encounter Procedure Notes * Delgado Perez MD - 08/02/2024 8:42 AM EDTAssociated Order(s): UPPER GI ENDOSCOPY [facility] Patient Name: Bry Akhtar Procedure Date: 08/02/2024 8:42 AM Date of : 1975 Admit Type: Outpatient Note Status: Finalized Date of : 1975 Admit Type: Outpatient Age: 48 Room: OR 5 Gender: Male Note Status: Finalized Procedure: Upper GI endoscopy Indications: Epigastric abdominal pain, Abdominal pain in the right upper quadrant Providers: Belen Jones DO (Doctor) Referring MD: Delgado Perez MD Medicines: General Anesthesia Complications: No immediate complications. Estimated blood loss: Minimal. Procedure: Pre-Anesthesia Assessment: - Prior to the procedure, a History and Physical was performed, and patient medications, allergies and sensitivities were reviewed. The patient's tolerance of previous anesthesia was reviewed. - The risks and benefits of the procedure and the sedation options and risks were discussed with the patient. All questions were answered and informed consent was obtained. - Patient identification and proposed procedure were verified prior to the procedure by the physician, the nurse and the internet merchant. The procedure was verified in the procedure room. - Pre-procedure physical examination revealed no contraindications to sedation. - ASA Grade Assessment: III - A patient with severe systemic disease. - After reviewing the risks and benefits, the patient was deemed in satisfactory condition to undergo the procedure. - The anesthesia plan was to use general anesthesia. - Immediately prior to administration of medications, the patient was re- assessed for adequacy to receive sedatives. - The heart rate, respiratory rate, oxygen saturations, blood pressure, adequacy of pulmonary ventilation, and response to care were monitored throughout the procedure. - The physical status of the patient was re-assessed after the procedure. After obtaining informed consent, the endoscope was passed under direct vision. All instruments were visually inspected immediately before and after removal from the patient to ensure they are fully intact. Throughout the procedure, the patient's blood pressure, pulse, and oxygen saturations were monitored continuously.The upper GI endoscopy was accomplished without difficulty. The patient tolerated the procedure well. The was introduced through the mouth, with the intention of advancing to the duodenum. The scope was advanced to the gastric body before the procedure was aborted. Medications were given. Findings & Specimens: A medium amount of food (residue) was found in the gastric body. Impression: - A medium amount of food [...] for 24 hours in advance as well. Belen Jones DO 08/02/2024 9:03:36 AM This report has been signed electronically. Estimated Blood Loss: Estimated blood loss was minimal. documented in this encounter Nursing Notes * James Flood RN - 08/02/2024 10:08 AM EDT [facility] [address] [facility] Discharge Note Name: Bry Akhtar Jr. Date: 08/02/2024 Time: 9:50 AM Discharge Disposition: Home Responsible adult as escort home: girlfriend Transport Mode: Wheelchair Accompanied by: Lincoln Flood RN To: Car Belongings with patient: Yes Patient meets criteria to be transferred or discharged. * James Flood RN - 08/02/2024 9:45 AM EDT 0915- Dr Jones and this RN discussed EGD findings with patient and girlfriend Ni as noted on endoscopy report. Patient expresses frustration at the intended test not being completed. 0920- Further discussion of test results by this RN. Patient states "There's no food in my stomach,they just don't want to do the test." This RN showed patient color photos of food in his stomach that were listed on his report. Patient's girlfriend inquiring about possibility of admission for further symptom management and investigation. Dr Jones not willing to admit patient at this time. Further discussed with patient and girlfriend that he would have to follow up with his primary care doctor or proceed to ER of his choice for evaluation if desired. They verbalize understanding. Patient denies nausea but refuses PO intake at this time. 0950- Discharged without further incident. * Becky Russ RN - 08/02/2024 8:51 AM EDT EGD aborted d/t food in stomach in [facility] OR. Patient tolerated procedure well. Airway patent. Sedated by [facility] anesthesia staff, see anesthesia record for medications and vital signs. Abd soft. Resting with HOB elevated. Transferred to [facility] via stretcher by anesthesia staff and endo staff. Report given at time of transport. Bedside pre clean of endoscope at completion of procedure performed by Daniel Armenta RN documented in this encounter Plan of Treatment Upcoming Encounters Date Type Department Care Team (Late st Contact Info) Description 08/03/2024 10:15 AM EDT Office Visit Orthopaedics [facility] [address] [place] [address] Augie Dejesus PA-C [address] [facility] [place] [address] 08/18/2024 9:20 AM EDT Office Visit Pharmacy, [place] [address] [place] [address] [facility] [address] [place] [address] 08/18/2024 11:00 AM EDT Office Visit [facility] [address] [place] [address] Velasquez Valencia MD [address] [place] [address] 07/09/2025 10:00 AM EDT Office Visit Pulmonary Medicine, [facility] [address] [facility] [place] [address] Vishal Wallace MD [address] [place] [address] Scheduled Orders Name Type Priority Associated Diagnoses Order Schedule GLUCOSE METER, POINT OF CARE (COMMUNICATION ORDER) Point of Care Testing STAT Perform Now for 1 Occurrences starting 08/02/2024 until 08/02/2024 US ENDOSCOPIC Medical Imaging Routine One Ti me for 1 Occurrences starting 08/02/2024 until 08/02/2024 Scheduled Procedures Name Priority Associated Diagnoses Date/Ti [...] (Patient Declined After Education) HbA1c 11/09/2024 05/09/2024, 05/10/2023, 01/14/2024, Additional history exists Albumin/Creatinine Ratio 01/13/2025 024, 01/05/2023, 09/01/2021, Additional history exists Depression Screening 04/19/2025 04/19/2024 DISCUSS TOBACCO CESSATION (REFER TO SMARTSET #0044) 07/19/2025 07/19/2024, 10/16/2022 GFR 08/02/2025 08/02/2024, 07/18, [...] this encounter Medical Devices Implanted Type Area Plumbing Installer Device Identifier Shelf Expiration Date Model / Serial / Lot Suture [place] Dbl Load 4.75mm - [id number] Implanted:Qty: 1 on 12/01/2019 by Judith Condon DO at OR [facility] Right: Shoulder [employer] 07/17/2021 [id number] -2 / / [id number] Suture [place] Dbl Load 5.5mm - [id number] Implanted:Qty: 1 on 12/01/2019 by Judith Condon DO at OR [facility] Right: Shoulder [employer] 09/16/2021 [id number] -2 / / [id number] documented as of this encounter Procedures Procedure Name Priority Date/Time Associated Diagnosis Comments GLUCOSE METER, POINT OF CARE [place] 08/02/2024 9:41 AM EDT UPPER GI ENDOSCOPY 08/02/2024 8: 42 AM EDT GLUCOSE METER, POINT OF CARE [place] 08/02/2024 8:18 AM EDT documented in this encounter Results * (ABNORMAL) GLUCOSE METER, POINT OF CARE (08/02/2024 9:41 AM EDT) GLUCOSE - POCT 233(H) 70 - 120 mg/dL 08/02/2024 9:44 AM EDT [facility] Blood Whole blood specimen / Unknown 08/02/2024 9:41 AM EDT 08/02/2024 9:44 AM EDT Belen Jones DO LAB POINT OF CARE TE ST DOCKED DEVICE UNSOLICITED RESULTS Performing Organization Address City/State/[facility] Co de Phone Number [facility] [address] [place] [address] * UPPER GI ENDOSCOPY (08/02/2024 8:42 AM EDT) 08/02/2024 8:42 AM EDT Narrative Procedure Note Delgado Perez MD - 08/02/2024 8:42 AM EDT [facility] Patient Name: Bry Akhtar Procedure Date: 08/02/2024 8:42 AM Date of : 1975 Admit Type: Outpatient Note Status:Finalized Date of : 1975 Admit Type: Outpatient Age: 48 Room: OR 5 Gender: Male Note Status: Finalized Procedure: Upper GI endoscopy Indications: Epigastric abdominal pain, Abdominal pain in theright upper quadrant Providers: Belen Jones DO (Doctor) Referring MD: Delgado Perez MD Medicines: General Anesthesia Complications: No immediate complications. Estimated blood loss:Minimal. Procedure: Pre-Anesthesia Assessment: - Prior to the procedure, a History and Physicalwas performed, and patient medications, allergies and sensitivities werereviewed. The patient's tolerance of previous anesthesia was reviewed. - The risks and benefits of the procedure and thesedation options and risks were discussed with the patient. All questions wereanswered and informed consent was obtained. - Patient identification and proposed procedurewere verified prior to the procedure by the physician, the nurse and the internet merchant.The procedure was verified in the procedure room. - Pre-procedure physical examination revealed nocontraindications to sedation. - ASA Grade Assessment: III - A patient with severesystemic disease. - After reviewing the risks and benefits, thepatient was deemed in satisfactory condition to undergo the procedure. - The anesthesia plan was to use generalanesthesia. - Immediately prior to administration ofmedications, the patient was re-assessed for adequacy to receive sedatives. - The heart rate, respiratory rate, oxygensaturations, blood pressure, adequacy of pulmonary ventilation, and response to care weremonitored throughout the procedure. - The physical status of the patient wasre-assessed after the procedure. After obtaining informed consent, the endoscope waspassed under direct vision. All instruments were visually inspected immediatelybefore and after removal from the patient to ensure they are fully intact. Throughoutthe procedure, the patient's blood pressure, pulse, and oxygen saturations weremonitored continuously.The upper GI endoscopy was accomplished without difficulty.The patient tolerated the procedure well. The was introduced through the mouth, withthe intention of advancing to the duodenum. The scope was advanced to the gastricbody before the procedure was aborted. Medications were given. Findings & Specimens: A medium amount of food (residue) was found in the gastric body. Impression: - A medium amount of food (residue) in thestomach. - No specimens collected. Recommendation: - The patient will be observed post-procedure,until all discharge criteria are met. - Advance diet as tolerated today. - Repeat upper endoscopy at appointment to bescheduled because the preparation was poor. - Clear liquid diet 24 hours prior to next attempt,Reglan every 6 hours for 24 hours in advance as well. Belen Jones DO 08/02/2024 9:03:36 AM This report has been signed electronically. Estimated Blood Loss: Estimated blood loss was minimal. Delgado Perez MD GASTRO UPPER * (ABNORMAL) GLUCOSE METER, POINT OF CARE (08/02/2024 8:18 AM EDT) GLUCOSE - POCT 271(H) 70 - 120 mg/dL 08/02/2024 8:24 AM EDT [facility] Blood Whole blood specimen / Unknown 08/02/2024 8:18 AM EDT 08/02/2024 8:24 AM EDT Belen Jones DO LAB POINT OF CARE TE ST DOCKED DEVICE UNSOLICITED RESULTS [facility] [address] [place] [address] documented in this encounter Visit Diagnoses Diagnosis Abdominal pain, epigastric- Primary documented in this encounter Administered Medications Inactive Administered Medications - up to 3 most recent administrations Medication Order MAR Action Action Date Dose Rate Site insulin aspart (NovoLOG) inj 10 Units 10 Units, Subcutaneous, ONCE, 1 dose, On Wed08/02/24 at 0900 Given 08/02/2024 8:29 AM EDT 10 Units Arm Left Upper isolyte-S pH 7.4 infusion Intravenous, at 25 mL/hr, All Patients EXCEPT Dialysis patients Plasma-LYTE 148, isolyte-S, and isolyte-S pH 7.4 are considered equivalent - including for MAR barcode scanning., CONTINUOUS, Starting on Wed08/02/24 at 0830, Until Wed08/02/24 at 1243, Pre-Op Restarted 08/02/2024 8:59 AM EDT Continue from Pre-Op 08/02/2024 8:45 AM EDT 25 mL/hr New Bag 08/02/2024 8:23 AM EDT 25 mL/hr 25 mL/hr isolyte-S pH 7.4 infusion Intravenous, at 100 mL/hr, Plasma-LYTE 148, isolyte-S, and isolyte-S pH 7.4 are considered equivalent - including for MAR barcode scanning., CONTINUOUS, Starting on Wed08/02/24 at 0915, Until Wed08/02/24 at 1243, Pre-Op documented in this encounter Active and Recently Administered Medications Times are shown in EDT. Scheduled Medication Order 07/31/2024 08/01/2024 08/02/2024 insulin aspart (NovoLOG) inj 10 Units (COMPLETED) 10 Units, Subcutaneous, ONCE, 1 dose, On Wed08/02/24 at 0900 0829 (Given - Provid er: Marlen Rico RN) Continuous Medication Order 07/31/2024 08/01/2024 08/02/2024 isolyte-S pH 7.4 infusion Intravenous, at 25 mL/hr, All Patients EXCEPT Dialysis patients Plasma-LYTE 148, isolyte-S, and isolyte-S pH 7.4 are considered equivalent - including for MAR barcode scanning., CONTINUOUS, Starting on Wed08/02/24 at 0830, Until Wed08/02/24 at 1243, Pre-Op 0823 (New Bag - Prov ider: Marlen Rico RN)0845 (Continue from Pre-Op - Provider: Negra Licona CRNA)0858 (Paused - Provider: Negra Licona CRNA - Comment: Switch to gravity)0859 (Restarted - Provider: Negra Licona CRNA) isolyte-S pH 7.4 infusion Intravenous, at 100 mL/hr, Plasma-LYTE 148, isolyte-S, and isolyte-S pH 7.4 are considered equivalent - including for MAR barcode scanning., CONTINUOUS, Starting on Wed08/02/24 at 0915, Until Wed08/02/24 at 1243, Pre-Op 0915 (Due) documented in this encounter Advance Directives * [...] Advance Directives occurred with: Patient Care Teams District Ranger Relationship Specialty Start Date End Date Velasquez Valencia MD [address] [place] [facility] [place] [id number] PCP - General Family Medicine 09/09/22 documented as of this encounter
--- OUTSIDE RECORDS SUMMARY | 2024-09-15 11:04 | External Medical Summary | Summary of Care ---
Author Name Unknown Organization [facility] Address [address] [place] [address] Phone [phone] Care Team Providers Care Retoucher Name Role Phone Velasquez Valencia MD Primary Care Provider [phone]- [phone] Reason for Referral * Evaluate & Treat - Unlimited Visits (Within 10 days (routine)) - Authorized Specialty Diagnoses / Procedures Referred By Contact Referred To Contact Cardiovascular Medicine / Cardiology Diagnoses Screening for cardiovascular condition Jae Holder DO [address] [place] [address] Referral ID Status Reason Start Date Expiration Date Visits Requested Visits Authorized [id number] Authorized Specialty Services Required 4 [id number] Question Answer Referral Priority Within 10 days (routine) Where should this appointment be scheduled? [facility] To which of the following clinics are you referring your patient? General Cardiology Clinic Comments Discharge Order Reason for Visit * Reason Comments Abdominal Pain * Auth/Cert Specialty Diagnoses / Procedures Referred By Bismark brown Referred To Contact [facility] [address] [place] [address] Phone: [phone] Emergency Medicine [facility] [address] [place] [address] Referral ID Status Reason Start Date Expiration Date Visits Re quested Visits Authorized [id number] Encounter Details Date Type Department Care Team (Late st Contact Info) Description 08/02/2024 1:03 PM EDT - 08/03/2024 1:05 AM EDT Emergency [facility] [address] [facility] [place] [address] Prasanth Fiore MD [address] [place] [id number] Screening for cardiovascular condition; Chest pain Discharge Disposition: Home - Self Care Allergies [...] Respimat 2.5 MCG/ACT Inhalation Aerosol Solution (Tiotropium [place] Monohydrate) Inhale 2 Puffs by mouth in the morning. 1 Each 2 07/04/2024 Active Additional Information Patient not taking.Reported on 08/02/2024 Dexcom G6 SensorIndications: Type 2 diabetes mellitus with hemoglobin A1c goal of less than 7.0% ([facility]) Use as directed every 10 days. 9 Each 5 07/18/2024 Active Dexcom G6 TransmitterIndicat ions:Type 2 diabetes mellitus with hemoglobin A1c goal of less than 7.0% ([facility]) Use as directed. Change every 90 days [...] IM 11/04/2009 Pneumococcal Conjugate Vacci ne, 20-valent ([id number]) 07/09/2023 Pneumococcal Polysaccharide PPV23 (Pneumovax) 11/03/2015,02/09/2006 Seasonal [...] Sign Reading Time Taken Comments Blood Pressure 147/52 08/03/2024 12:00 AM EDT Pulse 114 08/03/2024 12:00 AM EDT Temperature 36.6 C (97.9 F) 08/02/2024 12:55 PM E DT Respiratory Rate 18 08/03/2024 12:00 AM EDT Oxygen Saturation 96% 08/03/2024 12:00 AM EDT Inhaled Oxygen Concentration - - [...] 04/10/2024 documented as of this encounter Discharge Instructions * Discharge Instructions* Jae Holder, DO - 08/02/2024 10:45 PM EDT You were seen in the emergency department today by Dr. Holder and Dr. Fiore for your abdominalpain. He was CT scans did not show any abnormalities today your lab work it was not showing any abnormalities. You did have some abnormal heart enzymes that occurred later on the your visit after you are havingworsening chest pain and we had Cardiology evaluate you and they do feel you were safe to go home at this time and follow up as an outpatient. In terms you for abdominal pain we had the hospitalist team come down and evaluate you twice. They do feel you are safe for discharge at home. I am very sorry I know you are having significant pain and it was causing significant distress but at this time there is nothing that they can do for you asan inpatient that they can not do for you as an outpatient. Sadly, gastroparesis is an eventual outcome of poorly-controlled diabetes. documented in this encounter Procedure Notes * Chioma Nowak MD - 08/02/2024 7:06 PM EDTAssociated Order(s): EKG REASON FOR STUDY: CHEST PAIN CONCLUSIONS: Sinus tachycardia Incomplete right bundle branch block Borderline ECG When compared with ECG of 02-Aug-2024 18:37, No significant change was found Ventricular Rate: 122 Atrial Rate: 122 [place] Interval: 130 QRS Duration: 98 QT/QTc: 334/475 ms P-R-T Gunlock: 40 : -6 : 53 degrees * Chioma Nowak MD - 08/02/2024 6:37 PM EDTAssociated Order(s): EKG REASON FOR STUDY: CHEST PAIN CONCLUSIONS: Sinus tachycardia Incomplete right bundle branch block Borderline ECG When compared with ECG of 02-Aug-2024 13:15, No significant change was found Ventricular Rate: 116 Atrial Rate: 116 [place] Interval: 134 QRS Duration: 98 QT/QTc: 344/478 ms P-R-T Gunlock: 41 : -5 : 52 degrees documented in this encounter Miscellaneous Notes * Pt Handout (on AVS) - Jae Holder DO - 08/02/2024 10:45 PM EDT [id number] Diabetic Gastroparesis Gastroparesis, or delayed gastric emptying, is when food moves through the stomach more slowly thannormal. In someone with diabetes, it?s caused by damage to the vagus nerve because of chronic high blood sugar. (Other chronic diseases may also cause gastroparesis.) The vagus nerve helps control how food moves through the digestive system. When this nerve is damaged, the movement of food is slowed down or stopped. Food that stays in the stomach for too long can cause problems. Food can ferment in the stomach, causing bacteria to grow. Undigested food can also harden into masses called bezoars. These can cause nausea and vomiting. In some cases, they may block food from passing from the stomach to the small intestine. Gastroparesis can make it hard to manage blood sugar levels. That's because it is hard to predict when a meal will actually leave the stomach to be digested. It can also cause problems with vitamins and minerals being absorbed into the body as well as maintaining a healthy weight. Symptoms of diabetic gastroparesis are: Nausea Vomiting Feeling full after eating a small amount of food Stomach pain or cramps Heartburn Stomach bloating Weight loss Loss of appetite High or low blood sugar levels There are several different tests and studies that can help diagnose gastroparesis. For many people, gastroparesis is a lifelong health problem. Managing it will likely include changes in how you eat. You may be prescribed medicine to help with blood sugar levels, help your symptomslike nausea and vomiting, or act on muscles in the digestive system. Certain medicines that are otherwise very effective for diabetes can make gastroparesis worse and shouldn't be taken. In severe cases, surgery to put in a feeding tube may be needed. Or a special device may be implanted to encourage the stomach muscles to contract. Home care These changes may help ease your symptoms: Take prescribed medicines exactly as directed. Eat a liquid or soft diet if advised. Eat frequent small meals instead of less frequent large meals. Stay away from foods that are high in fat (such as whole milk, cheese, and fried foods) or fiber(such as beans, and many fruits and vegetables). These can slow digestion. Always control your blood sugar levels as well as possible as directed by your healthcare provider. Follow-up care Follow up with your healthcare provider as advised. Regular visits may be needed to manage gastroparesis. When to get medical advice Call your healthcare provider right away if any of these occur: Severe pain in your belly (abdomen) Inability to keep down food or liquids Weight loss Other symptoms as directed by your healthcare provider Last Reviewed Date: 2022 00:00:00 [id number] [employer]. All rights reserved. This information is not intended as a substitute for professional medical care. Always follow your healthcare professional's instructions. documented in this encounter Plan of Treatment Upcoming Encounters Date Type Department Care Team (Late st Contact Info) Description 08/07/2024 2:00 PM EDT [facility] [place] [address] [facility] [phone] Velasquez Valencia [facility] [address] [facility] [address] 08/18/2024 9:20 AM EDT [facility] [place] [address] [address] [facility] [address] [facility] [address] [facility] [address] 08/18/2024 11:00 AM EDT [facility] [place] [address] [address] [facility] [phone] Velasquez Valencia [facility] [address] [facility] [address] 07/09/2025 10:00 AM EDT Office Visit Pulmonary Medicine, [facility] [address] [place] [id number] Vishal Wallace MD [address] [place] [place] [id number] Scheduled Orders Name Type Priority Associated Diagnoses Orde r Schedule EKG EKG STAT Screening for cardiovascular condition Perform Now for 1 Occurrences starting 08/02/2024 until 08/02/2024 URINALYSIS, REFLEX TO CULTURE (NOT FOR NEUTROPENIC PATIENTS) Lab Routine One Time f or 1 Occurrences starting 08/02/2024 until 08/02/2024 URINALYSIS, REFLEX TO CULTURE (CUP ONLY) Lab Routine Once for 1 Oc currences starting 08/02/2024 until 08/02/2024 URINALYSIS, REFLEX TO CULTURE Lab Routine Once for 1 Occur rences starting 08/02/2024 until 08/02/2024 EKG EKG Routine Chest pain One Time for 1 Occurrences starting 08/02/2024 until 08/02/2024 Scheduled Procedures Name Priority Associated Diagnoses Date/Ti me COLONOSCOPY FLEXIBLE PROXIMA L DIAGNOSTIC Recall Screening for colon cancer Scheduled Referrals Name Type Priority Associated Diagnoses Orde r Schedule CARDIOLOGY REFERRAL OP Referral Within 10 days (routine) Screening for cardiovascular condition Ordered: 08/02/2024 Health Maintenance Due Date Last Done Comments [...] this encounter Medical Devices Implanted Type Area Sap Developer Device Identifier Shelf Expiration Date Model / Serial / Lot Suture [place] Dbl Load 4.75mm - [id number] Implanted:Qty: 1 on 12/01/2019 by Judith Condon, DO at OR [facility] Right: Shoulder [employer] 07/17/2021 [id number] / / [id number] Suture [place] Dbl Load 5.5mm - [id number] Implanted:Qty: 1 on 12/01/2019 by Judith Condon DO at OR [facility] Right: Shoulder [employer] 09/16/2021 [id number] -2 / / [id number] documented as of this encounter Procedures Procedure Name Priority Date/Time Associated Diagnosis Comments ECHO, TTE, LIMITED Routine 08/02/2024 10 :16 PM EDT Chest pain TROPONIN T, HIGH SENSITIVITY STAT 08/02/2024 9:02 PM EDT TROPONIN T, HIGH SENSITIVITY STAT 08/02/2024 7:15 PM EDT HC ECG TRACING ONLY STAT 08/02/2024 7 :06 PM EDT Screening for cardiovascular condition HC ECG TRACING ONLY STAT 08/02/2024 6 :37 PM EDT Screening for cardiovascular condition CT ABD/PELVIS W IV CONTRAST - WO ORAL CONTRAST STAT 08/02/2024 3:22 PM EDT XR CHEST 2 VIEWS STAT 08/02/2024 3:07 PM EDT DIFFERENTIAL, AUTOMATED STAT 08/02/2024 1:49 PM EDT TROPONIN T, HIGH SENSITIVITY Add-on 08/02/2024 1:49 PM EDT COMPREHENSIVE METABOLIC PANEL STAT 08/02/2024 1:49 PM EDT CBC STAT 08/02/2024 1:49 PM EDT LIPASE STAT 08/02/2024 1:49 PM EDT LACTATE,WHOLE BLOOD STAT 08/02/2024 1 :49 PM EDT CBC STAT 08/02/2024 1:49 PM EDT documented in this encounter Results * ECHO, TTE, LIMITED (08/02/2024 10:16 PM EDT) 08/02/2024 10:1 6 PM EDT Jim Cervantes MD ECHOCARDIOLOGY Performing Organization Address [facility] Co de Phone Number [facility] CARDIOLOG[facility] * (ABNORMAL) TROPONIN T, HIGH SENSITIVITY (08/02/2024 9:02 PM EDT) Troponin T, High Sensitivity 51(H) <=22 ng/L 08/02/2024 9:48 PM EDT LABORATORY [facility] Blood Venous blood specimen / Unknown Venipuncture / Unknown 08/02/2024 9:02 PM EDT 08/02/2024 9:17 PM EDT [facility]LOOD ORDERABLES Performing Organization Address [facility] Co de Phone Number LABORATORY [facility] [address] [place] [address] * (ABNORMAL) TROPONIN T, HIGH SENSITIVITY (08/02/2024 7:15 PM EDT) Troponin T, High Sensitivity 43(H) <=22 ng/L 08/02/2024 7:58 PM EDT LABORATORY [facility] Blood Venous blood specimen / Unknown Venipuncture / Unknown 08/02/2024 7:15 PM EDT 08/02/2024 7:29 PM EDT Jae [employer] LAB BLOOD ORDERABLES Performing Organization Address [facility] Co de Phone Number LABORATORY [facility] [address] [place] [address] * EKG (08/02/2024 7:06 PM EDT) 08/02/2024 7:06 PM EDT Narrative Procedure Note Chioma Nowak MD - 08/02/2024 7:06 PM EDT REASON FOR STUDY: CHEST PAIN CONCLUSIONS: Sinus tachycardia Incomplete right bundle branch block Borderline ECG When compared with ECG of 02-Aug-2024 18:37, No significant change was found Ventricular Rate: 122 Atrial Rate: 122 [place] Interval: 130 QRS Duration: 98 QT/QTc: 334/475 ms P-R-T Gunlock: 40 : -6 : 53 degrees Shira Johnston MD EKG Performing Organization Address [facility] de Phone Number [facility] CARDIOLOG[facility] * EKG (08/02/2024 6:37 PM EDT) 08/02/2024 6:37 PM EDT Narrative Procedure Note Chioma Nowak MD - 08/02/2024 6:37 PM EDT REASON FOR STUDY: CHEST PAIN CONCLUSIONS: Sinus tachycardia Incomplete right bundle branch block Borderline ECG When compared with ECG of 02-Aug-2024 13:15, No significant change was found Ventricular Rate: 116 Atrial Rate: 116 [place] Interval: 134 QRS Duration: 98 QT/QTc: 344/478 ms P-R-T Gunlock: 41 : -5 : 52 degrees Messi Otto DO EKG Performing Organization Address [facility] de Phone Number [facility] CARDIOLOGY * CT ABD/PELVIS W IV CONTRAST - WO ORAL CONTRAST (08/02/2024 3:22 PM EDT) Anatomical Region Laterality Modality Body, Abdomen, Pelvis Computed T omography 08/02/2024 3:50 PM EDT Impressions 08/02/2024 4:14 PM EDT IMPRESSION No acute findings within the abdomen or pelvis. I have personally reviewed this examination and agree with the resident/fellow physician's interpretation. Narrative 08/02/2024 4:14 PM EDT EXAM EXAM: CT ABD/PELVIS W IV CONTRAST - WO ORAL CONTRAST DATE and TIME: 08/02/2024 3:22 pm HISTORY CLINICAL INFORMATION: epigastric RUQ pain, eating intolerance. no BM 2 weeks. hx of pancreatitis and gastroparesis TECHNIQUE Oral Contrast: Oral contrast was not administered. Helical CT images were acquired with intravenous contrast. Sagittal and coronal reformats were generated. COMPARISON CT abdomen/pelvis 04/10/2024. FINDINGS LOWER CHEST: Lingular and bibasilar atelectasis/scarring. [...] Otherwise, unremarkable. BONES: Degenerative changes of the spine. Procedure Note Pb Mckenzie, DO - 08/02/2024 EXAM EXAM: CT ABD/PELVIS W IV CONTRAST - WO ORAL CONTRAST DATE and TIME: 08/02/2024 3:22 pm HISTORY CLINICAL INFORMATION: epigastric RUQ pain, eating intolerance. no BM 2weeks. hx of pancreatitis and gastroparesis TECHNIQUE Oral Contrast: Oral contrast was not administered. Helical CT images were acquired with intravenous contrast. Sagittal andcoronal reformats were generated. COMPARISON CT abdomen/pelvis 04/10/2024. FINDINGS LOWER CHEST: Lingular and bibasilar atelectasis/scarring. [...] WALL/SOFT TISSUES: Radiodense device is external to thepatient's left hemiabdomen. Otherwise, unremarkable. BONES: Degenerative changes of the spine. IMPRESSION IMPRESSION No acute findings within the abdomen or pelvis. I have personally reviewed this examination and agree with the resident/fellow physician's interpretation. Jae Holder DO RAD CT * XR CHEST 2 VIEWS (08/02/2024 3:07 PM EDT) Anatomical Region Laterality Modality Chest Digital Radiogra phy 08/02/2024 3:16 PM EDT Impressions 08/02/2024 3:39 PM EDT IMPRESSION Hypoventilatory changes without acute cardiopulmonary disease seen. I have personally reviewed this examination and agree with the resident/fellow physician's interpretation. Narrative 08/02/2024 3:39 PM EDT EXAM XR CHEST 2 VIEWS - 08/02/2024 3:07 pm HISTORY chest pain, epigastic pain, TECHNIQUE AP semi upright and lateral chest radiographs were submitted. COMPARISON Chest x-ray 04/10/2024. FINDINGS FOREIGN BODIES, SUPPORT TUBES, LINES, DEVICES: None. LUNGS, PLEURA: Low lung volumes with bronchovascular crowding. Left basilar atelectasis. No pneumothorax or effusion. CARDIOVASCULAR, MEDIASTINUM: Cardiomediastinal silhouette is within normal limits. OTHER: None. Procedure Note Pb Mckenzie DO - 08/02/2024 EXAM XR CHEST 2 VIEWS - 08/02/2024 3:07 pm HISTORY chest pain, epigastic pain, TECHNIQUE AP semi upright and lateral chest radiographs were submitted. COMPARISON Chest x-ray 04/10/2024. FINDINGS FOREIGN BODIES, SUPPORT TUBES, LINES, DEVICES: None. LUNGS, PLEURA: Low lung volumes with bronchovascular crowding. Leftbasilar atelectasis. No pneumothorax or effusion. CARDIOVASCULAR, MEDIASTINUM: Cardiomediastinal silhouette is withinnormal limits. OTHER: None. IMPRESSION IMPRESSION Hypoventilatory changes without acute cardiopulmonary disease seen. I have personally reviewed this examination and agree with the resident/fellow physician's interpretation. Jae Holder DO RADIOLOGY (RAD GENER AL) * (ABNORMAL) TROPONIN T, HIGH SENSITIVITY (08/02/2024 1:49 PM EDT) Troponin T, High Sensitivity 34(H) <=22 ng/L 08/02/2024 7:27 PM EDT LABORATORY [facility] Blood Venous blood specimen / Unknown Venipuncture / Unknown 08/02/2024 1:49 PM EDT 08/02/2024 1:58 PM EDT Jae Holder DO LAB BLOOD ORDERABLES LABORATORY [facility] [address] [place] [address] * (ABNORMAL) DIFFERENTIAL, AUTOMATED (08/02/2024 1:49 PM EDT) [facility] Signature WBC 7.13 4.00 - 10.80 K/uL 08/02/2024 2:08 PM EDT LAB[facility]ORY [facility] Neutrophils % 62.3 40.0 - 75.0 % 08/02/2024 2:08 PM EDT LAB[facility]ATORY [facility] Lymphocytes % 22.2 18.0 - 42.0 % 08/02/2024 2:08 PM EDT LAB[facility]ATORY [facility] Monocytes % 11.6(H) 1.0 - 11.0 % 08/02/2024 2:08 PM EDT LAB[facility] Eosinophils % 1.5 0.0 - 6.0 % 08/02/2024 2:08 PM EDT LAB[facility] Basophils % 1.0 0.0 - 2.0 % 08/02/2024 2:08 PM EDT LAB[facility]ORY [facility] Immature Granulocytes % 1.4 0.0 - 2.0 % 08/02/2024 2:08 PM EDT LAB[facility]ORY [facility] Absolute Neutrophils 4.44 1.80 - 7.70 K/uL 08/02/2024 2:08 PM EDT LAB[facility]ORY [facility] Absolute Lymphocytes 1.58 1.00 - 4.80 K/ul 08/02/2024 2:08 PM EDT LAB[facility]ORY [facility] Absolute Monocytes 0.83 0.00 - 1.10 K/uL 08/02/2024 2:08 PM EDT LAB[facility]ORY [facility] Absolute Eosinophils 0.11 0.00 - 0.70 K/uL 08/02/2024 2:08 PM EDT LAB[facility] Absolute Basophils 0.07 0.00 - 0.20 K/uL 08/02/2024 2:08 PM EDT LAB[facility]ORY [facility] Absolute Immature Granulocytes 0.10 0.00 - 0.20 K/uL 08/02/2024 2:08 PM EDT [facility] Blood Venous blood specimen / Unknown Venipuncture / Unknown 08/02/2024 1:49 PM EDT 08/02/2024 1:58 PM EDT Jae Holder DO LAB BLOOD ORDERABLES [facility] [address] [place] [address] * (ABNORMAL) CBC (08/02/2024 1:49 PM EDT) [facility] WBC 7.13 4.00 - 10.80 K/uL 08/02/2024 2:08 PM EDT LAB[facility]ATORY [facility] RBC 4.81 4.50 - 5.25 M/uL 08/02/2024 2:08 PM EDT LAB[facility]ATORY [facility] HGB 13.3(L) 14.0 - 16.8 g/dL 08/02/2024 2:08 PM EDT LAB[facility]ORY [facility] HCT 41.5 40.0 - 48.4 % 08/02/2024 2:08 PM EDT LABORATORY GM MCV 86.3 82.0 - 99.5 fL 08/02/2024 2:08 PM EDT LABORATORY GM MCH 27.7 27.0 - 34.0 pg 08/02/2024 2:08 PM EDT LABORATORY [facility] MCHC 32.0 32.0 - 36.0 g/dL 08/02/2024 2:08 PM EDT LAB[facility]ATORY [facility] RDW 14.6 11.5 - 15.5 % 08/02/2024 2:08 PM EDT LABORATORY GM PLT 214 140 - 400 K/uL 08/02/2024 2:08 PM EDT LABORATORY [facility] MPV 9.3 6.6 - 11.1 fL 08/02/2024 2:08 PM EDT LABORATORY [facility] nRBCs 0 <=0 /100 WBCs 08/02/2024 2:08 PM EDT LABORATORY [facility] Blood Venous blood specimen / Unknown Venipuncture / Unknown 08/02/2024 1:49 PM EDT 08/02/2024 1:58 PM EDT Jae Holder DO LAB BLOOD ORDERABLES LABORATORY [facility] [address] [place] [address] * LACTATE,WHOLE BLOOD (08/02/2024 1:49 PM EDT) [facility] Lactate, Whole Blood 1.6 0.4 - 2.0 mmol/L 08/02/2024 2:02 PM EDT LABORATORY [facility] Blood Venous blood specimen / Unknown Venipuncture / Unknown 08/02/2024 1:49 PM EDT 08/02/2024 1:58 PM EDT [facility] BLOOD ORDERABLES Performing Organization Address City/[facility]/ZIP Co de Phone Number LABORATORY [facility] [address] [place] [address] * LIPASE (08/02/2024 1:49 PM EDT) [facility] Lipase 21 13 - 60 U/L 08/02/2024 2:27 PM EDT LABORATORY [facility] Blood Venous blood specimen / Unknown Venipuncture / Unknown 08/02/2024 1:49 PM EDT 08/02/2024 1:58 PM EDT [facility] LAB BLOOD ORDERABLES Performing Organization Address City/[facility]/ZIP Co de Phone Number LABORATORY [facility] [address] [place] [address] * (ABNORMAL) COMPREHENSIVE METABOLIC PANEL (08/02/2024 1:49 PM EDT) [facility] BUN 18 6 - 20 mg/dL 08/02/2024 2:42 PM EDT LABORATORY [facility] CREATININE 1.0 0.6 - 1.2 mg/dL 08/02/2024 2:42 PM EDT LABORATORY [facility] EGFR 87 >=60 mL/min 08/02/2024 2:42 PM EDT LABORATORY [facility] Comment:eGFR is calculated b ased on the CKD-EPI 2020 equation. SODIUM 136 135 - 146 mmol/L 08/02/2024 2:42 PM EDT LABORATORY [facility] POTASSIUM 4.1 3.5 - 5.1 mmol/L 08/02/2024 2:42 PM EDT LABORATORY [facility] CHLORIDE 98 98 - 107 mmol/L 08/02/2024 2:42 PM EDT LABORATORY [facility] CO2 23 22 - 32 mmol/L 08/02/2024 2:42 PM EDT LAB[facility]ORY [facility] ANION GAP 15 7 - 15 mmol/L 08/02/2024 2:42 PM EDT LAB[facility]ORY [facility] GLUCOSE 339(H) 70 - 120 mg/dL 08/02/2024 2:42 PM EDT LAB[facility]ORY [facility] Albumin 4.2 3.8 - 5.0 g/dL 08/02/2024 2:42 PM EDT LAB[facility]ATORY [facility] AST 22 10 - 50 U/L 08/02/2024 2:42 PM EDT LAB[facility]ORY [facility] Alkaline Phosphatase 83 35 - 130 U/L 08/02/2024 2:42 PM EDT LAB[facility] Bilirubin, Total 0.5 <=1.2 mg/dL 08/02/2024 2:42 PM EDT LAB[facility]ORY [facility] CALCIUM 9.4 8.4 - 10.2 mg/dL 08/02/2024 2:42 PM EDT LAB[facility]ORY [facility] Protein 7.1 6.0 - 8.3 g/dL 08/02/2024 2:42 PM EDT LAB[facility]ATORY [facility] ALT 29 10 - 50 U/L 08/02/2024 2:42 PM EDT LABORATORY C Blood Venous blood specimen / Unknown Venipuncture / Unknown 08/02/2024 1:49 PM EDT 08/02/2024 1:58 PM EDT Jae Holder DO LAB BLOOD ORDERABLES LABORATORY [facility] [address] [place] [address] documented in this encounter Visit Diagnoses Diagnosis Screening for cardiovascular condition Screening for other and unspecified cardiovascular conditions Chest pain Chest pain, unspecified documented in this encounter Administered Medications Inactive Administered Medications - up to 3 most recent administrations Medication Order MAR Action Action Date Dose Rate Site Acetaminophen (Tylenol) tab 975 mg 975 mg, Oral, ONCE, On Wed08/02/24 at 1430, For 1 dose, Maximum of 4 grams (4000 mg) per day. Given 08/02/2024 3:46 PM EDT 975 mg Haloperidol Lactate (Haldol) 5 MG/ML inj 5 mg 5 mg, IV Push, ONCE, On Wed08/02/24 at 2015, For 1 dose Given 08/02/2024 8:01 PM EDT 5 mg Iopamidol (Isovue 370) inj 80 mL 80 mL, Intravenous, ONCE, On Wed08/02/24 at 1600, For 1 dose, Radiology Medication Routing (Non-IR) Given 08/02/2024 4:00 PM EDT 80 mL isolyte 1,000 mL bolus infusion Intravenous, Administer entire volume within 60 minutes or less. Plasma-LYTE 148, isolyte-S, and isolyte-S pH 7.4 are considered equivalent - including for MAR barcode scanning., ONCE, 1 dose, On Wed08/02/24 at 1415 KVO 08/02/2024 4:48 PM EDT 5 mL/hr New Bag 08/02/2024 3:48 PM EDT 1,000 mL 1000 mL/hr isolyte-S pH 7.4 infusion Intravenous, at 150 mL/hr, Plasma-LYTE 148, isolyte-S, and isolyte-S pH 7.4 are considered equivalent - including for MAR barcode scanning., CONTINUOUS, Starting on Wed08/02/24 at 2115, Until Swapna 08/03/24 at 0506 New Bag 08/02/2024 9:14 PM EDT 150 mL/hr Metoclopramide (Reglan) inj 10 mg 10 mg, IV Push, ONCE, On Wed08/02/24 at 1915, For 1 dose Given 08/02/2024 6:50 PM EDT 10 mg morphine sulfate inj 4 mg 4 mg, Intravenous, ONCE, On Wed08/02/24 at 1430, For 1 dose Given 08/02/2024 3:45 PM EDT 4 mg Nitroglycerin (Nitrostat) sl tab 0.4 mg 0.4 mg, Sublingual, Q5 MINUTES, First dose on Wed08/02/24 at 1945, Last dose on Wed08/02/24 at 1955, For 3 doses, Hold for SBP <110. Given 08/02/2024 7:26 PM EDT 0.4 mg Given 08/02/2024 7:21 PM EDT 0.4 mg Given 08/02/2024 7:13 PM EDT 0.4 mg documented in this encounter Active and Recently Administered Medications Times are shown in EDT. Scheduled Medication Order 08/01/2024 08/02/2024 08/03/2024 Acetaminophen (Tylenol) tab 975 mg (COMPLETED) 975 mg, Oral, ONCE, On Wed08/02/24 at 1430, For 1 dose, Maximum of 4 grams (4000 mg) per day. 1546 (Given - Provider: Axel Mclaughlin RN) Haloperidol Lactate (Haldol) 5 MG/ML inj 5 mg (COMPLETED) 5 mg, IV Push, ONCE, On Wed08/02/24 at 2015, For 1 dose 2000 (Given - Provider: Axel Mclaughlin RN) Iopamidol (Isovue 370) inj 80 mL (COMPLETED) 80 mL, Intravenous, ONCE, On Wed08/02/24 at 1600, For 1 dose, Radiology Medication Routing (Non-IR) 1600 (Given - Provider: Jay Yepez, RT) isolyte 1,000 mL bolus infusion (COMPLETED) Intravenous, Administer entire volume within 60 minutes or less. Plasma-LYTE 148, isolyte-S, and isolyte-S pH 7.4 are considered equivalent - including for MAR barcode scanning., ONCE, 1 dose, On Wed08/02/24 at 1415 1548 (New Bag - Provider: Zach Mclaughlin RN)1648 (KVO - Provider: Zach Mclaughlin RN)1657 (Stopped - Provider: Zach Mclaughlin RN) Metoclopramide (Reglan) inj 10 mg (COMPLETED) 10 mg, IV Push, ONCE, On Wed08/02/24 at 1915, For 1 dose 1850 (Given - Provider: Axel Mclaughlin, NEPTALI) morphine sulfate inj 4 mg (COMPLETED) 4 mg, Intravenous, ONCE, On Wed08/02/24 at 1430, For 1 dose 1545 (Given - Provider: Axel Mclaughlin RN) Nitroglycerin (Nitrostat) sl tab 0.4 mg (COMPLETED) 0.4 mg, Sublingual, Q5 MINUTES, First dose on Wed08/02/24 at 1945, Last dose on Wed08/02/24 at 1955, For 3 doses, Hold for SBP <110. 1913 (Given - Provider: Axel Mclaughlin RN)1920 (Given - Provider: Zach Mclaughlin, NEPTALI)1925 (Given - Provider: Zach Mclaughlin RN) Continuous Medication Order 08/01/2024 08/02/2024 08/03/2024 isolyte-S pH 7.4 infusion Intravenous, at 150 mL/hr, Plasma-LYTE 148, isolyte-S, and isolyte-S pH 7.4 are considered equivalent - including for MAR barcode scanning., CONTINUOUS, Starting on Wed08/02/24 at 2115, Until Swapna 08/03/24 at 0506 2114 (New Bag - Provider: Zach Mclaughlin RN) 0057 (Stopped - Provider: Zach Mclaughlin RN) documented in this encounter Advance Directives [...] Advance Directives occurred with: Patient Care Teams Retoucher Relationship Specialty Start Date End Date Velasquez Valencia MD [address] [place] [address] PCP - General Family Medicine 09/09/22 documented as of this encounter
--- OUTSIDE RECORDS SUMMARY | 2024-09-15 11:05 | External Medical Summary | Summary of Care ---
Author Name Unknown Organization [facility] Address [address] [facility] [place] [address] Phone [phone] Care Team Providers Care Senior Telecommunications Technician Name Role Phone Velasquez Valencia MD Primary Care Provider +1- [phone] Encounter Details Date Type Department Care Team (Late st Contact Info) Description 08/01/2024 Orders Only [facility] [address] [place] [address] Velasquez Valencia MD [address] [place] [address] Allergies Active Allergy Reactions Criticality Noted Date Comments Pioglitazone 07/19/2024 Cefaclor Unknown 07/26/2018 As child Empagliflozin Other (Please comment) 05/16/2021 DKA with hospitalization Nsaids High 04/19/2019 Gastric problems Other Reaction(s): gastroparesis, kidney problems, use with caution : hx esophagus damage documented as of this encounter (statuses as of 08/01/2024) Medications Medication Sig Dispensed Refills Start Date [...] 7.0% ([facility]) Inject 40 units twice daily- this replaces [...] less than 7.0% ([facility]) Inject 32 units with breakfast 22 units [...] Respimat 2.5 MCG/ACT Inhalation Aerosol Solution (Tiotropium [place] Monohydrate) Inhale 2 Puffs by mouth in [...] as of this encounter (statuses as of 08/01/2024) Active Problems Problem Noted Date Diagnosed Date [...] as of this encounter (statuses as of 08/01/2024) Resolved Problems Problem Noted Date Diagnosed Date [...] as of this encounter (statuses as of 08/01/2024) Immunizations Name Administration Dates Next Due COVID-19 mRNA, LNP-s, No Pre serve, 2-Dose Series (Health: [place]) 10/21/2021,03/01/2021,02/07/2021 H1N1 2009 Influenza, IM 11/04/2009 Pneumococcal Conjugate Vacci ne, 20-valent ([id number]) 07/09/2023 Pneumococcal Polysaccharide PPV23 (Pneumovax) 11/03/2015,02/09/2006 Seasonal [...] Care Team (Latest Contact Info) Description 08/02/2024 9:17 AM EDT Hospital Encounter OR [facility], Operating Room, [facility] - 4th Floor [address] [place] [address] [place] [address] Belen Jones, DO [address] [place] [address] 08/02/2024 9:17 AM EDT - 08/02/2024 10:01 AM EDT Surgery OR [facility], Operating Room, [facility] - 4th Floor [address] [place] [address] Belen Jones, DO [address] [place] [address] ESOPHAGOGASTRODUODENOSCOPY (EGD), FLEXIBLE, TRANSORAL, ENDOSCOPIC ULTRASOUND 08/03/2024 10:15 AM EDT Office Visit Orthopaedics [facility] [address] [place] [address] Augie Dejesus PA-C [address] [place] [address] 08/18/2024 9:20 AM EDT [facility] [address] [place] [facility] [place] [address] [facility] [address] [facility] [address] 08/18/2024 11:00 AM EDT Office Visit [facility] [address] [facility] [address] [facility]quez [facility] [address] [facility] [address] 07/09/2025 10:00 AM EDT Office Visit Pulmonary Medicine, [facility] [address] [place] [address] Vishal Wallace MD [address] [facility] [place] [address] Scheduled Procedures Name Priority Associated Diagnoses Date/Ti me ESOPHAGOGASTRODUODENOSCOPY ( EGD), FLEXIBLE, TRANSORAL, ENDOSCOPIC ULTRASOUND Acute pancreatitis 08/02/2024 9:17 AM EDT COLONOSCOPY FLEXIBLE PROXIMA L DIAGNOSTIC [...] 04/19/2024 DISCUSS TOBACCO CESSATION (REFER TO SMARTSET #3758) 07/19/2025 07/19/2024, 10/16/2022 GFR 07/29/2025 07/29/2024, 11/2023, 05/09/2024, Additional history exists DTap/Tdap Vaccines (2 - [...] encounter Medical Devices Implanted Type Area Director Media Device Identifier Shelf Expiration Date Model / Serial / Lot Suture [place] Dbl Load 4.75mm - [id number] Implanted:Qty: 1 on 12/01/2019 by Judith Condon DO at OR [facility] Right: Shoulder [employer] 07/17/2021 AR-2324BCT -2 / / [id number] Suture [place] Dbl Load 5.5mm - [id number] Implanted:Qty: 1 on 12/01/2019 by Judith Condon DO at OR [facility] Right: Shoulder [employer] 09/16/2021 AR-2323BCT -2 / / [id number] documented as of this encounter Procedures Procedure Name Priority Date/Time Associated Diagnosis Comments CHEMISTRY-OUTSIDE Routine 07/29/2024 documented in this encounter Results * (ABNORMAL) CHEMISTRY-OUTSIDE (07/29/2024) Not all results display below - see scan for full detail OUTSIDE LAB (SEE SCANNED REPORT) Comment:SCAN INCLUDES - E.R. LABS: CBCD, UA, CMP, LACTIC ACID, LIPASE CREATININE 1.57(A) 0.70 - 1.30 MG/DL OUTSIDE LAB (SEE SCANNED REPORT) EGFR 53(L) >=60 ML/MIN/1.73M 2 OUTSIDE LAB (SEE SCANNED REPORT) POTASSIUM 4.8 3.5 - 5.1 MMOL/L OUTSIDE LAB (SEE SCANNED REPORT) GLUCOSE 290(A) 70 - 110 MG/DL OUTSIDE LAB (SEE SCANNED REPORT) HOURS FASTING OUTSID E LAB (SEE SCANNED REPORT) TRIGLYCERIDES-OU TSIDE LAB OUTSIDE LAB (SEE SCANNED REPORT) CHOLESTEROL-OUTS NANCI LAB OUTSIDE LAB (SEE SCANNED REPORT) HDL-OUTSIDE LAB OUTS NANCI LAB (SEE SCANNED REPORT) CHOL/HDL RATIO-OUTSIDE LAB OUTSIDE LAB (SEE SCANNED REPORT) LDL (CALCULATED)-OUT SIDE LAB OUTSIDE LAB (SEE SCANNED REPORT) LDL (DIRECT MEASURE)-OUTSIDE LAB OUTSIDE LAB (SEE SCANNED REPORT) HEMOGLOBIN, [id number]-[id number] LAB OUTSIDE LAB (SEE SCANNED REPORT) PHOSPHORUS-OUTSI DE LAB OUTSIDE LAB (SEE SCANNED REPORT) PTH-OUTSIDE LAB OUTS NANCI LAB (SEE SCANNED REPORT) MICROALBUMIN RATIO-OUTSIDE LAB OUTSIDE LAB (SEE SCANNED REPORT) PROTEIN, UA-OUTSIDE LAB 1+(H) NEGATIVE OUTSIDE LAB (SEE SCANNED REPORT) HGB 12.7(A) 13.7 - 17.5 GM/DL OUTSIDE LAB (SEE SCANNED REPORT) 07/29/2024 Mily Whitmore PA-C LABORATORY OUTSIDE LAB (SEE SCANNED REPORT) documented in this encounter Advance Directives * [...] Directives occurred with: Not Discussed Care Teams Senior Telecommunications Technician Relationship Specialty Start Date End Date Velasquez Valencia MD [address] [facility] [place] [address] PCP - General Family Medicine 09/09/22 documented as of this encounter
--- OUTSIDE RECORDS SUMMARY | 2024-09-15 11:05 | External Medical Summary | Summary of Care ---
Author Name Unknown Organization [facility] [address] [facility] [address] Phone [phone] Care Team Providers Care Superintendent General Name Role Phone Velasquez Valencia MD Primary Care Provider +1- [phone] Encounter Details Date Type Department Care Team (Late st Contact Info) Description 07/29/2024 Result Scan Unspecified Department <No scans attached> Allergies Active Allergy Reactions Criticality Noted Date Comments Pioglitazone 07/19/2024 Cefaclor Unknown 07/26/2018 As child Empagliflozin Other (Please comment) 05/16/2021 DKA with hospitalization Nsaids High 04/19/2019 Gastric problems Other Reaction(s): gastroparesis, kidney problems, use with caution : hx esophagus damage documented as of this encounter (statuses as of 07/31/2024) Medications Medication Sig Dispensed Refills Start Date [...] [facility]) Use to check blood sugar once [...] Respimat 2.5 MCG/ACT Inhalation Aerosol Solution (Tiotropium [place] Monohydrate) Inhale 2 Puffs by mouth in [...] as of this encounter (statuses as of 07/31/2024) Active Problems Problem Noted Date Diagnosed Date [...] as of this encounter (statuses as of 07/31/2024) Resolved Problems Problem Noted Date Diagnosed Date [...] as of this encounter (statuses as of 07/31/2024) Immunizations Name Administration Dates Next Due COVID-19 mRNA, LNP-s, No Pre serve, 2-Dose Series ([employer]) 10/21/2021,03/01/2021,02/07/2021 H1N1 2009 Influenza, IM 11/04/2009 Pneumococcal Conjugate Vacci ne, 20-valent ([id number]) 07/09/2023 Pneumococcal Polysaccharide PPV23 (Pneumovax) 11/03/2015,02/09/2006 Seasonal [...] Department Care Team (Latest Contact Info) Description 07/31/2024 11:00 AM EDT Office Visit [facility] [address] [place] [address] Velasquez Valencia MD [address] [place] [address] 08/02/2024 10:34 AM EDT Hospital Encounter OR [facility], Operating Room, [facility] - 4th Floor [address] [place] [address] Belen Jones, DO [address] [place] [address] 08/02/2024 10:34 AM EDT - 08/02/2024 11:18 AM EDT Surgery OR [facility], Operating Room, [facility] - 4th Floor [address] [place] [address] Belen Jones, DO [address] [place] [address] ESOPHAGOGASTRODUODENOSCOPY (EGD), FLEXIBLE, TRANSORAL, ENDOSCOPIC ULTRASOUND 08/03/2024 10:15 AM EDT Office Visit Orthopaedics [facility] [address] [place] [address] Augie Dejesus PA-C [address] [place] [address] 08/18/2024 9:20 AM EDT [facility] [address] [facility] [address] [facility] [address] [facility] [address] 08/18/2024 11:00 AM EDT Office Visit [facility] [address] [facility] [address] Velasquez Valencia MD [address] [facility] [address] 07/09/2025 10:00 AM EDT Office Visit Pulmonary Medicine, [facility] [address] [place] [address] Vishal Wallace MD [address] [place] [address] Scheduled Procedures Name Priority Associated Diagnoses Date/Ti me ESOPHAGOGASTRODUODENOSCOPY ( EGD), FLEXIBLE, TRANSORAL, ENDOSCOPIC ULTRASOUND Acute pancreatitis 08/02/2024 10:34 AM EDT COLONOSCOPY FLEXIBLE PROXIMA L DIAGNOSTIC [...] 04/19/2024 DISCUSS TOBACCO CESSATION (REFER TO SMARTSET #5628) 07/19/2025 07/19/2024, 10/16/2022 GFR 07/19/2025 07/19/2024, 04/18, [...] this encounter Medical Devices Implanted Type Area Pot Holder Binder Device Identifier Shelf Expiration Date Model / Serial / Lot Suture [place] Dbl Load 4.75mm - [id number] Implanted:Qty: 1 on 12/01/2019 by Judith Condon DO at OR [facility] Right: Shoulder [employer] 07/17/2021 AR-2324BCT -2 / / [id number] Suture [place] Dbl Load 5.5mm - [id number] Implanted:Qty: 1 on 12/01/2019 by Judith Condon DO at OR [facility] Right: Shoulder [employer] 09/16/2021 AR-2323BCT -2 / / [id number] documented as of this encounter Procedures Procedure Name Priority Date/Time Associated Diagnosis Comments RADIOLOGY SCANNED RESULT 07/29/2024 documented in this encounter Results * RADIOLOGY SCANNED RESULT (07/29/2024) 07/29/2024 No Physician Data Unknown DIAGNOSTIC RAD IOLOGY SERVICES documented in this encounter Advance Directives * [...] Directives occurred with: Not Discussed Care Teams Superintendent General Relationship Specialty Start Date End Date Velasquez Valencia MD [address] [facility] [place] [place] [address] PCP - General Family Medicine 09/09/22 documented as of this encounter
--- OUTSIDE RECORDS SUMMARY | 2024-09-15 11:05 | External Medical Summary | Summary of Care ---
Author Name Unknown Organization [facility] Address [address] [facility] [place] [address] Phone [phone] Care Team Providers Care Shipping Team Leader Name Role Phone Velasquez Valencia MD Primary Care Provider +1- [phone] Reason for Visit * Reason Comments Follow Up Right knee * Precert (Diagnostic Medical) (Within 30 days (routine)) - Authorized Specialty Diagnoses / Procedures Referred By Bismark brown Referred To Contact Diagnoses Unilateral primary osteoarthritis, right knee Procedures EUFLEXXA, INTRA-ARTICULAR INJ, PER DOSE Casey Smith MD [address] [place] [address] Casey Smith MD [address] [place] [address] Referral ID Status Reason Start Date Expiration Date V isits Requested Visits Authorized [id number] Authorized Precert 07/13/2024 01/10/2025 3 3 Encounter Details Date Type Department Care Team (Latest Contact Info) Description 07/27/2024 10:15 AM EDT Office Visit Orthopaedics [facility] [address] [place] [address] Augie Dejesus PA-C [address] [place] [address] Primary osteoarthritis of right knee* Allergies Active Allergy Reactions Criticality Noted Date Comments Pioglitazone 07/19/2024 Cefaclor Unknown 07/26/2018 As child Empagliflozin Other (Please comment) 05/16/2021 DKA with hospitalization Nsaids High 04/19/2019 Gastric problems Other Reaction(s): gastroparesis, kidney problems, use with caution : hx esophagus damage documented as of this encounter (statuses as of 07/27/2024) Medications Medication Sig Dispensed Refills Start Date [...] ([facility]) Inject 40 units twice daily- this replaces lantus 54 mL 4 01/19/2024 Active BD Pen Needle Short U/F 31G X 8 MM (Insulin Pen Needle)Indications :Type 2 diabetes mellitus with hemoglobin A1c goal of less than 7.0% ([facility]) Use to inject insulin 5 times daily 500 Each 3 01/19/2024 Active Insulin Aspart FlexPen 100 UNIT/ML Subcutaneous Solution Pen-injectorIndica tions:Type 2 diabetes mellitus with hemoglobin A1c goal of less than 7.0% ([facility]) Inject 32 units with breakfast 22 [...] as needed 100 Strip 05/09/2024 Active Rosalio Shaver 33GIndications:Typ e 2 diabetes mellitus with [...] Respimat 2.5 MCG/ACT Inhalation Aerosol Solution (Tiotropium [place] Monohydrate) Inhale 2 Puffs by mouth in [...] TIMES DAILY 360 Capsule 1 07/20/2024 Active Hospital, Clinic, or Other Facility Administered Medication Ordered Dose Route Frequency Start Date End Date Status Sodium Hyaluronate (Viscosup) (Euflexxa/Hyalgan) 20 MG/2ML inj 20 mgIndications:Primary osteoarthritis of right knee 20 mg IX ONCE 07/27/2024 07/27/2024 Ended documented as of this encounter (statuses as of 07/27/2024) Active Problems Problem Noted Date Diagnosed Date [...] as of this encounter (statuses as of 07/27/2024) Resolved Problems Problem Noted Date Diagnosed Date [...] as of this encounter (statuses as of 07/27/2024) Immunizations Name Administration Dates Next Due COVID-19 mRNA, LNP-s, No Pre serve, 2-Dose Series (Pfizer) 10/21/2021,03/01/2021,02/07/2021 H1N1 2009 Influenza, IM 11/04/2009 Pneumococcal Conjugate Vacci ne, 20-valent ([id number]) 07/09/2023 Pneumococcal Polysaccharide PPV23 (Pneumovax) 11/03/2015,02/09/2006 Seasonal [...] Progress Notes * Augie Dejesus PA-C - 07/27/2024 10:31 AM EDTAssociated Order(s): LG Joint Inj/Arthro: R knee Post-Procedure Diagnose(s): Primary osteoarthritis of right knee Second injection Euflexxa right knee. Has experience subtle relief. Certainly, nothing significant and no reported worsening symptoms. Pleased with results and care thus far. No other questions concerns. Complete review systems negative Exam unchanged, please see prior note Impression: Right knee osteoarthritis Plan: Today 's findings were discussed with the patient. They were educated regarding their diagnosis. Multiple treatment options discussed and agreed upon, including 2nd injection Euflexxa today. Follow up in 1 week 3rd and final injection series. The patient has no other questions or concerns. Pleased with today 's care. Call sooner if needed. LG Joint Inj/Arthro: R knee on 07/27/2024 10:32 AM Indications: pain Details: 22 G needle, anterolateral approach Medications: (Euflexxa) Outcome: tolerated well, no immediate complications Procedure, treatment alternatives, risks and benefits explained, specific risks discussed. Consent was given by the patient. Immediately prior to procedure a time out was called to verify the correctpatient, procedure, equipment, technical support assistant and site/side marked as required. Patient was prepped and draped in the usual sterile fashion. This chart was completed in part utilizing [email or web address] Speech Voice Recognition Software. Grammatical errors, random word insertions, prounoun errors, and incomplete sentences are an occasional consequence of this system due to software limitations, ambient noise, and hardware issues. Any formal questions or concerns about the content, text, or information contained wit documented in this encounter Nursing Notes * April Marcelino MED ASSIST - 07/27/2024 10:14 AM EDT 2nd right knee Euflexxa injection documented in this encounter Plan of Treatment Upcoming Encounters Date Type Department Care Team (Latest Contact Info) Description 07/31/2024 11:00 AM EDT Office Visit [facility] [address] [place] [address] Velasquez Valencia MD [address] [place] [address] 08/02/2024 10:34 AM EDT Hospital Encounter OR [facility], Operating Room, [facility] - 4th Floor [address] [place] [phone] Belen Jones, DO [address] [place] [address] 08/02/2024 10:34 AM EDT - 08/02/2024 11:18 AM EDT Surgery OR [facility], Operating Room, [facility] - 4th Floor [address] [place] [phone] Belen Jones, DO [address] [place] [address] ESOPHAGOGASTRODUODENOSCOPY (EGD), FLEXIBLE, TRANSORAL, ENDOSCOPIC ULTRASOUND 08/03/2024 10:15 AM EDT Office Visit Orthopaedics [facility] [address] [place] [address] Augie Dejesus PA-C [address] [place] [address] 08/18/2024 9:20 AM EDT Office Visit Pharmacy, [place] [address] [facility], [place] [address] [facility] [address] [facility], [place] [address] 08/18/2024 11:00 AM EDT Office Visit Family Practice, [place] [address] [facility], [place] [phone] Velasquez Valencia [facility] [address] [facility] [address] 07/09/2025 10:00 AM EDT Office Visit Pulmonary Medicine, [facility] [address] [facility] [place] [address] Vishal Wallace MD [address] [place] [address] Scheduled Procedures Name Priority Associated Diagnoses Date/Ti [...] this encounter Medical Devices Implanted Type Area Resaw Carriage Operator Device Identifier Shelf Expiration Date Model / Serial / Lot Suture [place] Dbl Load 4.75mm - [id number] Implanted:Qty: 1 on 12/01/2019 by Judith Condon DO at OR [facility] Right: Shoulder [employer] 07/17/2021 AR-2324BCT -2 / / [id number] Suture [place] Dbl Load 5.5mm - [id number] Implanted:Qty: 1 on 12/01/2019 by Judith Condon DO at OR [facility] Right: Shoulder [employer] 09/16/2021 AR-2323BCT -2 / / [id number] documented as of this encounter Procedures Procedure Name Priority Date/Time Associated Diagnosis Comments AR ARTHROCENTESIS ASPIR&/INJ MAJOR JT/BURSA W/O US Routine 07/27/2024 10:32 AM EDT Primary osteoarthritis of right knee documented in this encounter Results * AR ARTHROCENTESIS ASPIR&/INJ MAJOR JT/BURSA W/O US (07/27/2024 10:32 AM EDT) Narrative Augie Dejesus PA-C - 07/27/2024 10:32 AM EDT Augie Dejesus PA-C 07/27/2024 10:32 AM LG Joint Inj/Arthro: R knee on 07/27/2024 10:32 AM Indications: pain Details: 22 G needle, anterolateral approach Medications: (Euflexxa) Outcome: tolerated well, no immediate complications Procedure, treatment alternatives, risks and benefits explained, specific risks discussed. Consent was given by the patient. Immediately prior to procedure a time out was called to verify the correct patient, procedure, equipment, technical support assistant and site/side marked as required. Patient was prepped and draped in the usual sterile fashion. Augie Nigel Oleg AYALA PROCDOC FORM documented in this encounter Visit Diagnoses Diagnosis Primary osteoarthritis of right knee- Primary Primary localized osteoarthrosis, lower leg Acute pancreatitis documented in this encounter Administered Medications Inactive Administered Medications - up to 3 most recent administrations Medication Order MAR Action Action Date Dose Rate Site Sodium Hyaluronate (Viscosup) (Euflexxa/Hyalgan) 20 MG/2ML inj 20 mg 20 mg, Intra-Articular, ONCE, On Swapna 07/27/24 at 1115, For 1 dose Given 07/27/2024 10:46 AM EDT 20 mg Knee Right documented [...] Directives occurred with: Not Discussed Care Teams Shipping Team Leader Relationship Specialty Start Date End Date Velasquez Valencia [facility] [address] [facility] [address] PCP - General Family Medicine 09/09/22 documented as of this encounter
--- OUTSIDE RECORDS SUMMARY | 2024-09-15 11:05 | External Medical Summary ---
Author Name Unknown Address Unknown Organization K01:LABORATORY [facility] - [address] [place] [address] Laboratory Report Ordering Provider Test Date Status WAI GILLILAND 08/02/2024 13:49:00 Final Observation Date Value Abnormality Reference (Units ) Status Lipase 08/02/2024 13:49:00 21 13-60 (U/L ) Final Performing Location [facility]ORY [facility] [address] [place] [place] [address]
--- OUTSIDE RECORDS SUMMARY | 2024-09-15 11:05 | External Medical Summary | Summary of Care ---
Author Name Unknown Organization [facility] Address [address] [facility] [place] [address] Phone [phone] Care Team Providers Care Manager Union Name Role Phone Velasquez Valencia MD Primary Care Provider +1- [phone] Reason for Visit * Reason Onset Date Comments Advice 08/02/2024 Encounter Details Date Type Department Care Team (Late st Contact Info) Description 08/02/2024 Telephone Gastroenterology, [facility] [address] [place] [address] Belen Jones DO [address] [place] [address] Advice Allergies Active Allergy Reactions Criticality Noted [...] 54 g 3 10/29/2022 Suspended Additional Information Patient not taking.Reported on 08/02/2024 [...] morning. 14 Each 11/06/2023 Suspended Additional Information Ondansetron HCl 4 [...] 180 Tablet 3 12/29/2023 Suspended Additional Information Tosb SoloStar 300 UNIT/ML Subcutaneous Solution Pen-injector [...] 120 mL 4 02/16/2024 Suspended Additional Information Patient taking differently: 34units with breakfast, and 22 units with lunch and 24 units with supper + 10 units with snacks + CF of 1:10 over 140 [see chart at bottom of [facility] visit 05/09/24], Reported on 05/09/2024 traMADol HCl 50 MG Oral Tablet (Ultram)Indicatio ns:Abdominal pain, epigastric Take 1 Tablet by mouth every 6 hours as needed for Pain, Severe. 40 Tablet 02/22/2024 Suspended Additional Information Lidocaine 4 % External Patch (Aspercreme) Place 1 Patch over 12 hours topically on the skin in the morning. 30 Patch 04/14/2024 Suspended Additional Information Patient not taking.Reported on 07/31/2024 Metoclopramide HCl 10 MG Oral Tablet (Reglan) take 1 tablet by mouth three times a day 30 MINUTES before MEALS 270 Tablet 1 04/13/2024 Suspended Additional Information traMADol HCl 50 MG Oral Tablet (Ultram)Indicatio ns:Abdominal pain, generalized,Phant om limb pain (HCC) Take 1 Tablet by mouth every 6 hours as needed for Pain, Severe. Take 1-2 tabs by mouth every 6 hours as needed for severe pain in want to do it due 8 it has been 80 Tablet 04/14/2024 Suspended Additional Information Patient not taking.Reported on 08/02/2024 Alum & Mag Hydroxide-Simeth 400-400-40 MG/5ML Oral Suspension (Mi-Acid II)Indications:Co nstipation, unspecified constipation type Take 15 ml every 6 hours as needed for constipation 355 mL 3 04/21/2024 Suspended Additional Information Polyethylene Glycol 3350 17 GM/SCOOP Oral Powder (Miralax) Take 1 scoop daily in 8 ounces of water. 510 g 5 04/21/2024 Suspended Additional Information Atorvastatin Calcium 20 MG Oral Tablet (Lipitor) Take 1 Tablet by mouth in the morning. 90 Tablet 3 04/28/2024 Suspended Additional Information OneTouch Verio In Vitro Strip (Glucose Blood)Indications :Type 2 diabetes mellitus with hemoglobin A1c goal of less than 7.0% ([facility]) Use to check blood sugar once daily as needed 100 Strip 05/09/2024 Suspended Additional Information OneTouch Delica Lancets 33GIndications:Ty pe 2 diabetes mellitus with hemoglobin A1c goal of less than 7.0% ([facility]) Use to check blood sugars once daily as needed 100 Each 05/09/2024 Suspended Additional Information Movantik 25 MG Oral Tablet (Naloxegol Oxalate) take 1 tablet by mouth in the morning 30 Tablet 5 05/24/2024 Suspended Additional Information Gabapentin 100 MG Oral Capsule (Neurontin)Indica tions:Neuropathy TAKE 2 CAPSULES BY MOUTH EVERY 12 HOURS 120 Capsule 3 05/31/2024 Suspended Additional Information Cyclobenzaprine HCl 10 MG Oral Tablet (Flexeril)Indicat ions:Lumbar disc herniation TAKE 1 TABLET BY MOUTH AT BEDTIME ONLY NEEDED 30 Tablet 06/14/2024 Suspended Additional Information oxyCODONE HCl 5 MG Oral Tablet (Oxy IR)Indications:[facility] mbar disc herniation Take 1 Tablet by mouth every 8 hours as needed for Pain, Severe. 20 Tablet 06/20/2024 Suspended Additional Information metFORMIN HCl 500 MG Oral Tablet (Glucophage)Indic ations:Type 2 diabetes mellitus with hemoglobin A1c goal of less than 7.0% (HCC) Take 2 Tablets by mouth in the morning and 2 Tablets in the evening. 360 Tablet 3 07/03/2024 Suspended Additional Information Pantoprazole Sodium 40 MG Oral Tablet Delayed Release (Protonix) TAKE 1 TABLET BY MOUTH TWICE A DAY 180 Tablet 3 07/03/2024 Suspended Additional Information Famotidine 20 MG Oral Tablet (Pepcid) TAKE ONE TABLET BY MOUTH NIGHTLY AT BEDTIME 90 Tablet 3 07/03/2024 Suspended Additional Information Spiriva Respimat 2.5 MCG/ACT Inhalation Aerosol Solution (Tiotropium Simpson Monohydrate) Inhale 2 Puffs by mouth in the morning. 1 Each 2 07/04/2024 Suspended Additional Information Patient not taking.Reported on 08/02/2024 Dexcom G6 SensorIndications :Type 2 diabetes mellitus with hemoglobin A1c goal of less than 7.0% (HCC) Use as directed every 10 days. 9 Each 5 07/18/2024 Suspended Additional Information Dexcom G6 TransmitterIndica tions:Type 2 diabetes mellitus with hemoglobin A1c goal of less than 7.0% (HCC) Use as directed. Change every 90 days 1 Each 5 07/18/2024 Suspended Additional Information Losartan Potassium 50 MG Oral Tablet (Cozaar) Take 1 Tablet by mouth in the morning and 1 Tablet before bedtime. 07/19/2024 Suspended Terazosin HCl 1 MG Oral Capsule (Hytrin) Take 1 Capsule by mouth at bedtime. 07/19/2024 Suspended Dicyclomine HCl 10 MG Oral Capsule (Bentyl) TAKE 1 CAPSULE BY MOUTH FOUR TIMES DAILY 360 Capsule 1 07/20/2024 Suspended Additional Information Torsemide 10 MG Oral Tablet (Demadex)Indicati ons:Acute on chronic diastolic heart failure (HCC) Take 2 tabs by mouth daily 180 Tablet 3 07/28/2024 Suspended Additional Information documented as of this [...] IM 11/04/2009 Pneumococcal Conjugate Vacci ne, 20-valent ([id number]) 07/09/2023 Pneumococcal Polysaccharide PPV23 (Pneumovax) 11/03/2015,02/09/2006 Seasonal [...] No 04/19/2024 Does the household have a [facility] source of income? (Household - for [...] 08/03/2024 10:15 AM EDT Office Visit Orthopaedics [facility] [address] [place] [address] Augie Dejesus PA-C [address] [facility] [place] [address] 08/18/2024 9:20 AM EDT Office Visit Pharmacy, [place] [address] [place] [address] [facility] [address] [place] [address] 08/18/2024 11:00 AM EDT Office Visit [facility] [place] [address] [facility] [phone] Velasquez Valencia MD [address] [place] [facility] [place] [address] 07/09/2025 10:00 AM EDT Office Visit Pulmonary Medicine, [facility] [address] [facility] [place] [address] Vishal Wallace MD [address] [place] [phone] Scheduled Procedures Name Priority Associated Diagnoses Date/Ti [...] 04/19/2024 DISCUSS TOBACCO CESSATION (REFER TO SMARTSET #1349) 07/19/2025 07/19/2024, 10/16/2022 GFR 07/29/2025 07/29/2024, 11/2023, [...] this encounter Medical Devices Implanted Type Area Vision Mixer Device Identifier Shelf Expiration Date Model / Serial / Lot Suture [place] Dbl Load 4.75mm - [id number] Implanted:Qty: 1 on 12/01/2019 by Judith Condon DO at OR [facility] Right: Shoulder [employer] 07/17/2021 AR-2324BCT -2 / / [id number] Suture [place] Dbl Load 5.5mm - [id number] Implanted:Qty: 1 on 12/01/2019 by Judith Condon DO at OR [facility] Right: Shoulder [employer] 09/16/2021 AR-2323BCT -2 / / [id number] documented as of this encounter Advance Directives [...] Directives occurred with: Patient Care Teams Manager Union Relationship Specialty Start Date End Date Velasquez Valencia MD [address] [place] [address] PCP - General Family Medicine 09/09/22 documented as of this encounter
--- OUTSIDE RECORDS SUMMARY | 2024-09-15 11:05 | External Medical Summary ---
Author Name Unknown Address Unknown Organization K01:LABORATORY C - [address] [facility] [place] [address] Laboratory Report Ordering Provider Test Date Status WAI GILLILAND 08/02/2024 13:49:00 Final Observation Date Value Abnormality Reference (Units ) Status BUN 08/02/2024 13:49:00 18 6-20 (mg/dL) Final Creatinine 08/02/2024 13:49:00 1.0 0.6-1.2 (mg/dL) Final Glomerular filtration rate/1.73 sq M.predicted [Volume Rate/Area] in Serum, Plasma or Blood by Creatinine-based formula (CKD-EPI) 08/02/2024 13:49:00 87 >=60 (mL/min) Final eGFR is calculated based on the CKD-EPI 2020 equation. Sodium 08/02/2024 13:49:00 136 135-146 (m mol/L) Final Potassium 08/02/2024 13:49:00 4.1 3.5-5.1 (m mol/L) Final Cl 08/02/2024 13:49:00 98 98-107 (mm ol/L) Final CO2 08/02/2024 13:49:00 23 22-32 (mmo l/L) Final Anion gap 08/02/2024 13:49:00 15 7-15 (mmol /L) Final Glucose 08/02/2024 13:49:00 339 Above high normal 70 -120 (mg/dL) Final Albumin 08/02/2024 13:49:00 4.2 3.8-5.0 (g /dL) Final AST (Aspartate aminotransferase) 08/02/2024 13:49:00 22 10-50 (U/L) Fin al Alk Phos 08/02/2024 13:49:00 83 35-130 (U/ L) Final Bilirubin, Total 08/02/2024 13:49:00 0.5 <=1 .2 (mg/dL) Final Calcium 08/02/2024 13:49:00 9.4 8.4-10.2 ( mg/dL) Final Protein 08/02/2024 13:49:00 7.1 6.0-8.3 (g /dL) Final ALT (Alanine aminotransferase) 08/02/2024 13:49:00 29 10-50 (U/L) Ethan gillette Performing Location LABORATORY [facility] [place] - [facility] [address] [facility] [address]
--- OUTSIDE RECORDS SUMMARY | 2024-09-15 11:05 | External Medical Summary ---
Author Name Unknown Address Unknown Organization K01:[facility] - [address] [facility] [place] [address] Laboratory Report Ordering Provider Test Date Status WAI GILLILAND 08/02/2024 13:49:00 Final Observation Date Value Abnormality Reference (Units ) Status SYNC LEUKOCYTES IN BLOOD BY AUTOMATED COUNT 08/02/2024 13:49:00 7.13 4.00-10.80 (K/uL) Final Segs 08/02/2024 13:49:00 62.3 40.0-75.0 (%) Final Lymphs % 08/02/2024 13:49:00 22.2 18.0-42.0 (%) Final Monos 08/02/2024 13:49:00 11.6 Above high normal 1.0-11.0 (%) Final Eosinophils 08/02/2024 13:49:00 1.5 0.0-6.0 (%) Final Basos 08/02/2024 13:49:00 1.0 0.0-2.0 (%) Final Immature Granulocyte, Percent 08/02/2024 13:49:00 1.4 0.0-2.0 (%) Final Absolute Segs 08/02/2024 13:49:00 4.44 1.80-7.70 (K/uL) Final Lymphs, absolute 08/02/2024 13:49:00 1.58 1.00-4.80 (K/ul) Final Monos, Abs 08/02/2024 13:49:00 0.83 0.00-1.10 (K/uL) Final Eos, Abs 08/02/2024 13:49:00 0.11 0.00-0.70 (K/uL) Final Basos, Abs 08/02/2024 13:49:00 0.07 0.00-0.20 (K/uL) Final Immature Granulocytes, Number 08/02/2024 13:49:00 0.10 0.00-0.20 (K/uL) Final Performing Location [facility]ORY [facility] [address] [facility] [address]
--- OUTSIDE RECORDS SUMMARY | 2024-09-15 11:05 | External Medical Summary ---
Author Name Unknown Address Unknown Organization K01:LABORATORY [facility] [place] - [address] [place] [address] Laboratory Report Ordering Provider Test Date Status WAI GILLILAND 08/02/2024 13:49:00 Final Observation Date Value Abnormality Reference (Units ) Status Lactic Acid, Whole Blood 08/02/2024 13:49:00 1.6 0.4-2.0 (mmol/L) Final Performing Location LABORATORY C - [address] [place] [address]
--- OUTSIDE RECORDS SUMMARY | 2024-09-15 11:05 | External Medical Summary | Summary of Care ---
Author Name Unknown Organization [facility] Address [address] [facility] [place] [address] Phone [phone] Care Team Providers Care Patient Care Representative Name Role Phone Velasquez Valencia MD Primary Care Provider +1- [phone] Reason for Visit * Reason Onset Date Comments Advice 08/02/2024 Encounter Details Date Type Department Care Team (Late st Contact Info) Description 08/02/2024 Telephone Gastroenterology, [facility] [address] [place] [address] Belen Jones DO [address] [place] [address] Advice Allergies Active Allergy Reactions Criticality Noted [...] Respimat 2.5 MCG/ACT Inhalation Aerosol Solution (Tiotropium [place] Monohydrate) Inhale 2 Puffs by mouth in [...] mRNA, LNP-s, No Pre serve, 2-Dose Series (Admittor) 10/21/2021,03/01/2021,02/07/2021 H1N1 2009 Influenza, IM 11/04/2009 Pneumococcal Conjugate Vacci ne, 20-valent ([id number]) 07/09/2023 Pneumococcal Polysaccharide PPV23 (Pneumovax) 11/03/2015,02/09/2006 Seasonal [...] Miscellaneous Notes * Telephone Encounter - Nini Pereira, DAMION - 08/02/2024 11:22 AM EDT Images from the original note were not included. Madison Azul LPN 08/02/24 10:10 AM Note Pt's EC Ni is calling. Pt is at [facility] to have a scope done. Dr. Jones [...] asking if she takes the pt to [place], if they would admit him, clean the pt out and then see the specialist there that PCP mentioned at last OV? Is hoping to take the pt to [facility] from [facility]. Please advise. 08/02/24 10:10 AM Madison Azul [...] 08/03/2024 10:15 AM EDT Office Visit Orthopaedics [address] [place] [address] Augie Dejesus PA-C [address] [place] [address] 08/18/2024 9:20 AM EDT [facility] [place] [address] [facility] [address] [facility] [address] [place] [facility] [place] [address] 08/18/2024 11:00 AM EDT Office Visit [facility], [place] [address] [facility] [phone] [facility]asquez Valencia [facility] [address] [facility] [address] 07/09/2025 10:00 AM EDT Office Visit Pulmonary Medicine, [facility] [address] [place] [address] Vishal Wallace MD [address] [place] [address] Scheduled Procedures Name Priority Associated Diagnoses Date/Ti [...] 04/19/2024 DISCUSS TOBACCO CESSATION (REFER TO SMARTSET #1366) 07/19/2025 07/19/2024, 10/16/2022 GFR 07/29/2025 07/29/2024, 11/2023, [...] this encounter Medical Devices Implanted Type Area Attraction Worker Device Identifier Shelf Expiration Date Model / Serial / Lot Suture [place] Dbl Load 4.75mm - [id number] Implanted:Qty: 1 on 12/01/2019 by Judith Condon, DO at OR [facility] Right: Shoulder [employer] 07/17/2021 AR-2324BCT -2 / / [id number] Suture [place] Dbl Load 5.5mm - [id number] Implanted:Qty: 1 on 12/01/2019 by Judith Condon, DO at OR [facility] Right: Shoulder [employer] 09/16/2021 AR-2323BCT -2 / / [id number] documented as of this encounter Advance Directives [...] Advance Directives occurred with: Patient Care Teams Patient Care Representative Relationship Specialty Start Date End Date Velasquez Valencia MD [address] [place] [facility] [place] [address] PCP - General Family Medicine 09/09/22 documented as of this encounter
--- OUTSIDE RECORDS SUMMARY | 2024-09-15 11:05 | External Medical Summary ---
Author Name Unknown Address Unknown Organization : Laboratory Report Ordering Provider Test Date Status ROME FINNEY 08/02/2024 08:18:30 Final Observation Date Value Abnormality Reference (Units ) Status Glucose Point of Care 08/02/2024 08:18:30 271 Above high normal 70-120 (mg/dL) Final Performing Location
--- OUTSIDE RECORDS SUMMARY | 2024-09-15 11:05 | External Medical Summary ---
Author Name Unknown Address Unknown Organization K01:LABORATORY [facility] [place] - [facility] [address] [place] [address] Laboratory Report Ordering Provider Test Date Status WAI GILLILAND 08/02/2024 13:49:00 Final Observation Date Value Abnormality Reference (Units ) Status WBC, Total 08/02/2024 13:49:00 7.13 4.00-10.80 (K/uL) Final RBC 08/02/2024 13:49:00 4.81 4.50-5.25 (M/uL) Final Hemoglobin 08/02/2024 13:49:00 13.3 Below low normal 14.0-16.8 (g/dL) Final HCT 08/02/2024 13:49:00 41.5 40.0-48.4 (%) Final MCV 08/02/2024 13:49:00 86.3 82.0-99.5 (fL) Final MCH 08/02/2024 13:49:00 27.7 27.0-34.0 (pg) Final MCHC 08/02/2024 13:49:00 32.0 32.0-36.0 (g/dL) Final RDW 08/02/2024 13:49:00 14.6 11.5-15.5 (%) Final Platelets 08/02/2024 13:49:00 214 140-400 (K/uL) Final MPV 08/02/2024 13:49:00 9.3 6.6-11.1 (fL) Final Nucleated erythrocytes/100 leukocytes [Ratio] in Blood by Automated count 08/02/2024 13:49:00 0 <=0 (/100 WBCs) Final Performing Location LABORATORY [facility] [place] - [address] [place] [address]
--- OUTSIDE RECORDS SUMMARY | 2024-09-15 11:05 | External Medical Summary ---
Author Name Unknown Address Unknown Organization : Laboratory Report Ordering Provider Test Date Status ROME FINNEY 08/02/2024 09:41:50 Final Observation Date Value Abnormality Reference (Units ) Status Glucose Point of Care 08/02/2024 09:41:50 233 Above high normal 70-120 (mg/dL) Final Performing Location
--- OUTSIDE RECORDS SUMMARY | 2024-09-15 11:05 | External Medical Summary | Summary of Care ---
Author Name Unknown Organization [facility] Address [address] [facility] [place] [address] Phone [phone] Care Team Providers Care Speech Therapist Technician Name Role Phone Velasquez Valencia MD Primary Care Provider +1- [phone] Reason for Visit * Reason Comments Follow Up Right knee * Precert (Diagnostic Medical) (Within 30 days (routine)) - Authorized Specialty Diagnoses / Procedures Referred By Bismark brown Referred To Contact Diagnoses Unilateral primary osteoarthritis, right knee Procedures EUFLEXXA, INTRA-ARTICULAR INJ, PER DOSE Casey Smith MD [address] [place] [address] Casey Smith MD [address] [place] [address] Referral ID Status Reason Start Date Expiration Date V isits Requested Visits Authorized [id number] Authorized Precert 07/13/2024 01/10/2025 3 3 Encounter Details Date Type Department Care Team (Latest Contact Info) Description 07/27/2024 10:15 AM EDT Office Visit Orthopaedics [facility] [address] [place] [address] Augie Dejesus PA-C [address] [place] [address] Primary osteoarthritis of right knee* Allergies Active [...] Respimat 2.5 MCG/ACT Inhalation Aerosol Solution (Tiotropium [place] Monohydrate) Inhale 2 Puffs by mouth [...] IM 11/04/2009 Pneumococcal Conjugate Vacci ne, 20-valent ([id number]) 07/09/2023 Pneumococcal Polysaccharide PPV23 (Pneumovax) 11/03/2015,02/09/2006 Seasonal [...] called to verify the correctpatient, procedure, equipment, call center support consultant and site/side marked as required. Patient was prepped and draped in the usual sterile fashion. This chart was completed in part utilizing [employer] Speech Voice Recognition Software. Grammatical errors, random [...] Description 07/31/2024 11:00 AM EDT [facility] [address] [place] [address] Velasquez Valencia MD [address] [place] [address] 08/02/2024 10:34 AM EDT Hospital Encounter OR [facility], Operating Room, [facility] - 4th Floor [address] [place] [phone] Belen Jones, DO [address] [place] [address] 08/02/2024 10:34 AM EDT - 08/02/2024 11:18 AM EDT Surgery OR [facility], Operating Room, [facility] - 4th Floor [address] [place] [phone] Belen Jones, DO [address] [place] [address] ESOPHAGOGASTRODUODENOSCOPY (EGD), FLEXIBLE, TRANSORAL, ENDOSCOPIC ULTRASOUND 08/03/2024 10:15 AM EDT Office Visit Orthopaedics [facility] [address] [place] [address] Augie Dejesus PA-C [address] [place] [address] 08/18/2024 9:20 AM EDT Office Visit Pharmacy, [place] [address] [facility], [place] [address] [facility] [address] [facility], [place] [address] 08/18/2024 11:00 AM EDT Office Visit Family Practice, [place] [address] [facility], [place] [phone] Velasquez Valencia [facility] [address] [facility] [address] 07/09/2025 10:00 AM EDT Office Visit Pulmonary Medicine, [facility] [address] [facility] [place] [address] Vishal Wallace MD [address] [place] [address] Scheduled Procedures Name Priority Associated Diagnoses Date/Ti [...] this encounter Medical Devices Implanted Type Area Laborer Electroplating Device Identifier Shelf Expiration Date Model / Serial / Lot Suture [place] Dbl Load 4.75mm - [id number] Implanted:Qty: 1 on 12/01/2019 by Judith Condon DO at OR [facility] Right: Shoulder [employer] 07/17/2021 AR-2324BCT -2 / / [id number] Suture [place] Dbl Load 5.5mm - [id number] Implanted:Qty: 1 on 12/01/2019 by Judith Condon DO at OR [facility] Right: Shoulder [employer] 09/16/2021 AR-2323BCT -2 / / [id number] documented as of this encounter Procedures Procedure Name Priority Date/Time Associated Diagnosis Comments CT ARTHROCENTESIS ASPIR&/INJ MAJOR JT/BURSA W/O US Routine 07/27/2024 10:32 AM EDT Primary osteoarthritis of right knee documented in this encounter Results * CT ARTHROCENTESIS ASPIR&/INJ MAJOR JT/BURSA W/O US (07/27/2024 [...] to verify the correct patient, procedure, equipment, call center support consultant and site/side marked as required. Patient was [...] Directives occurred with: Not Discussed Care Teams Speech Therapist Technician Relationship Specialty Start Date End Date Velasquez Valencia MD [address] [facility] [address] PCP - General Family Medicine 09/09/22 documented as of this encounter
--- OUTSIDE RECORDS SUMMARY | 2024-09-15 11:06 | External Medical Summary | Summary of Care ---
Author Name Unknown Organization [facility] Address [address] [place] [address] Phone [phone] Care Team Providers Care Blue Crabber Name Role Phone Velasquez Valencia MD Primary Care Provider [phone] Reason for Visit * Reason Comments Follow Up Right knee * Precert (Diagnostic Medical) (Within 30 days (routine)) - Authorized Specialty Diagnoses / Procedures Referred By Bismark brown Referred To Contact Diagnoses Unilateral primary osteoarthritis, right knee Procedures EUFLEXXA, INTRA-ARTICULAR INJ, PER DOSE Casey Smith MD [address] [place] [address] Casey Smith MD [address] [place] [address] Referral ID Status Reason Start Date Expiration Date V isits Requested Visits Authorized [id number] Authorized Precert 07/13/2024 01/10/2025 3 3 Encounter Details Date Type Department Care Team (Latest Contact Info) Description 07/27/2024 10:15 AM EDT Office Visit Orthopaedics [facility] [address] [place] [address] Augie Dejesus PA-C [address] [place] [address] Primary osteoarthritis of right knee* Allergies Active [...] ([facility]) Use to inject insulin 5 times daily 500 Each 3 01/19/2024 Active Insulin Aspart FlexPen 100 UNIT/ML Subcutaneous Solution Pen-injectorIndica tions:Type 2 diabetes mellitus with hemoglobin A1c goal of less than 7.0% ([facility]) Inject 32 units with breakfast 22 units [...] Respimat 2.5 MCG/ACT Inhalation Aerosol Solution (Tiotropium [place] Monohydrate) Inhale 2 Puffs by mouth in [...] IM 11/04/2009 Pneumococcal Conjugate Vacci ne, 20-valent (Fpluoxn12) 07/09/2023 Pneumococcal Polysaccharide PPV23 (Pneumovax) 11/03/2015,02/09/2006 Seasonal [...] called to verify the correctpatient, procedure, equipment, presidential support specialist and site/side marked as required. Patient was prepped and draped in the usual sterile fashion. This chart was completed in part utilizing [employer]-Qi Speech Voice Recognition Software. Grammatical errors, random [...] Description 07/31/2024 11:00 AM EDT Office Visit [facility] [address] [place] [address] Velasquez Valencia MD [address] [place] [address] 08/02/2024 10:34 AM EDT Hospital Encounter OR [facility], Operating Room, [facility] - 4th Floor [address] [place] [phone] Belen Jones, DO [address] [place] [address] 08/02/2024 10:34 AM EDT - 08/02/2024 11:18 AM EDT Surgery OR [facility], Operating Room, [facility] - 4th Floor [address] [place] [phone] Belen Jones, DO [address] [place] [id number] ESOPHAGOGASTRODUODENOSCOPY (EGD), FLEXIBLE, TRANSORAL, ENDOSCOPIC ULTRASOUND 08/03/2024 10:15 AM EDT Office Visit Orthopaedics [facility] [address] [place] [address] Augie Dejesus PA-C [address] [place] [address] 08/18/2024 9:20 AM EDT Office Visit Pharmacy, [place] [address] [facility], [place] [address] [facility] [address] [facility], [place] [address] 08/18/2024 11:00 AM EDT Office Visit Family Practice, [place] [address] [facility], [place] [phone] [facility] [address] [facility] [address] 07/09/2025 10:00 AM EDT Office Visit Pulmonary Medicine, [facility] [address] [facility] [place] [address] Vishal Wallcae MD [address] [place] [address] Scheduled Procedures Name Priority Associated Diagnoses Date/Ti [...] this encounter Medical Devices Implanted Type Area Rubber Goods Tester Water Device Identifier Shelf Expiration Date Model / Serial / Lot Suture Porter Dbl Load 4.75mm - [id number] Implanted:Qty: 1 on 12/01/2019 by Judith Condon DO at OR [facility] Right: Shoulder [employer] 07/17/2021 AR-[id number] -2 / / [id number] Suture Porter Dbl Load 5.5mm - [id number] Implanted:Qty: 1 on 12/01/2019 by Judith Condon DO at OR [facility] Right: Shoulder [employer] 09/16/2021 AR-[id number] -2 / / [id number] documented as of this encounter Procedures Procedure Name Priority Date/Time Associated Diagnosis Comments [place] ARTHROCENTESIS ASPIR&/INJ MAJOR JT/BURSA W/O US Routine 07/27/2024 10:32 AM EDT Primary osteoarthritis of right knee documented in this encounter Results * [place] ARTHROCENTESIS ASPIR&/INJ MAJOR JT/BURSA W/O US (07/27/2024 [...] to verify the correct patient, procedure, equipment, presidential support specialist and site/side marked as required. Patient was [...] Directives occurred with: Not Discussed Care Teams Blue Crabber Relationship Specialty Start Date End Date [facility]as[facility] Valencia [facility] [address] [facility] [address] PCP - General Family Medicine 09/09/22 documented as of this encounter
[2024-09-15 11:47] LABS: Basophils # (auto) 0.07 K/uL (0.00-0.20); Basophils % (auto) 0.9 %; Eosinophils # (auto) 0.31 K/uL (0.00-0.50); Hematocrit (blood only) 40.2 % (42.0-52.0); Hemoglobin 13.1 g/dl (14.0-18.0); Immature Granulocytes # (auto) 0.15 K/uL (0.01-0.20); Immature Granulocytes % (auto) 1.9 %; Lymphocytes # (auto) 1.79 K/uL (1.20-3.40); Lymphocytes % (auto) 23.2 %; Mean Corpuscular Hemoglobin 26.9 pg (25.0-34.0); Mean Corpuscular Hgb Conc 32.6 g/dL (32.0-36.0); Mean Corpuscular Volume 82.5 fL (80.0-100.0); Mean Platelet Volume 9.7 fL (9.4-12.4); Monocytes # (auto) 0.62 K/uL (0.11-0.59); Neutrophils # (auto) 4.79 K/uL (1.40-6.50); Platelet Count 257 K/uL (130-400); RDW Coefficient of Variation 13.7 % (11.5-14.5); RDW Standard Deviation 41.4 fL (36.4-46.3); Red Blood Count 4.87 M/uL (4.70-6.10); White Blood Count 7.73 K/ul (4.8-10.8)
--- NOTE | 2024-09-15 12:05 | XRay Report ---
EXAM: Radiograph of the Chest 1 View INDICATION: Chest pain. TECHNIQUE: Frontal view of the chest. COMPARISON: No relevant prior studies available. FINDINGS: Lungs and pleural spaces: Prominent interstitial markings appear chronic. No consolidation or pulmonary edema. No pleural effusion or pneumothorax. Heart: Prominent cardiac shadow accentuated by technique. Mediastinum: Normal contour. Bones/joints: No fracture, erosion or dislocation. Soft tissues: No abnormality noted. No radiopaque foreign body noted. Upper abdomen: No abnormality noted. IMPRESSION: No acute cardiopulmonary disease. ACT 112: Negative or not required by law. Electronically signed by Carol Salcido 09-15-2024 12:05 PM
[2024-09-15 12:10] LABS: INR 0.9 (0.9-1.1); Partial Thromboplastin Ratio 0.9; Partial Thromboplastin Time 25 Seconds (21-31); Prothrombin Time 10.1 Seconds (9.0-12.0)
[2024-09-15 12:16] LABS: Albumin Globulin Ratio 1.1 (0.9-2); Albumin Level 3.4 gm/dl (3.4-5.0); Bilirubin,Total 0.4 mg/dl (0.2-1.0); Creatinine Clr Calc Pharmacy 191.6 ml/min; Globulin 3.2 gm/dl (2.5-4.0); Potassium 4.4 mmol/L (3.5-5.1); Total Protein 6.6 gm/dl (6.0-8.3); Troponin I High Sensitivity 19.9 pg/ml (0-20)
[2024-09-15 12:30] LABS: D Dimer 640 ug/L FEU (0-500)
[2024-09-15] MEDS: OPTIRAY 320 125ml IV ONE (12:53)
--- NOTE | 2024-09-15 13:06 | CT Scan Report ---
CT ANGIOGRAPHY OF THE CHEST, PULMONARY EMBOLUS PROTOCOL CLINICAL HISTORY: Chest pain. Evaluate for pulmonary embolus. COMPARISON STUDY: Chest radiograph performed earlier today. Chest CT July 13, 2024. TECHNIQUE: Following IV administration of 120 mL of Optiray, helical axial images of the chest were o btained utilizing the pulmonary embolus protocol. Maximal intensity projections and sagittal and cor onal reformats were viewed on an independent 3D workstation. IV contrast was administered without co mplication. Automated exposure control was utilized for the study. A dose lowering technique was ut ilized adhering to the principles of ALARA. CT DOSE: 994.92 mGy.cm FINDINGS: No pulmonary emboli are identified. There is no thoracic aortic dissection. The size of th e heart is normal. There is no pericardial effusion. No enlarged axillary, mediastinal or hilar lymph nodes are present. No pneumothorax or pleural effusion is present. Central airways are patent. There is no consolidation to suggest pneumonia. There are no pulmonary nodules. Visualized portions of the upper abdomen demonstrate hepatic steatosis. IMPRESSION: 1. No pulmonary emboli identified. 2. No acute intrathoracic findings. ACT 112: Negative or not required by law. Electronically signed by: Serge Ghotra M.D. 09/15/2024 1:04 PM
[2024-09-15] MEDS: KETOROLAC TROMETHAMINE 15 MG/ML VIAL IV ONE (13:48)
[2024-09-15] MEDS ORDERED: METOPROLOL TARTRATE 1 MG/ML VIAL IV STA (15:44)
[2024-09-15] MEDS: LABETALOL HCL IV 5 MG/ML 20ML IV STA (16:28)
[2024-09-15] MEDS: NovoLIN-R INSULIN PER UNIT CHARGE IV STA (16:28)
[2024-09-15] MEDS ORDERED: PHARMACY GLYCEMIC MGMT CONSULT PRN (17:59)
--- NOTE | 2024-09-15 17:59 | History & Physical Report ---
<Statement entered by Luis Gallagher DO - 09/15/24 19:27> I have seen and examined the patient and have discussed the case with the provider above. I have reviewed the advanced practitioner's documentation, and I agree with, and take responsibility for that plan of care. Patient seen and examined while still in the ED. Patient confirmed with me as well that he stopped taking all of his blood pressure medications. States he really was only taking his medications for his gastroparesis. Does admit to reproducible chest pain however he also states that there is another type of chest pain more on the left side of his chest that is different than what is reproducible. Physical exam: Lungs: Clear to auscultation CV: Normal S1-S2 Abdomen: Soft and nontender Musculoskeletal: Mild tenderness to palpation left sternal border Reviewed data, troponins flat low suspicion for acute coronary syndrome Patient with uncontrolled hypertension and chest discomfort due to this secondary the patient discontinuing his antihypertensive medications Resume blood pressure medications Plan of care as discussed with MODESTO below Date of Service September 15, 2024 Assessment & Plan (1) Atypical chest pain: (2) Morbid obesity: (3) Sleep apnea: (4) Noncompliance with CPAP treatment: (5) Acute and chronic respiratory failure with hypercapnia: (6) Diabetes mellitus, type 2: (7) HTN (hypertension): (8) Depression: (9) Gastroparesis: (10) Intellectual disability: (11) COPD (chronic obstructive pulmonary disease): (12) Chronic diastolic heart failure: Plan This is a 48-year-old male with PMH of type 2 diabetes, COPD, DAMION noncompliant with CPAP, morbid obesity, gastroparesis, history of BKA, history of noncardiac chest pain, diastolic heart failure, ongoing tobacco use disorder and other medical problems listed below who presents with chest pain. Atypical chest pain Hypertensive urgency HFpEF BP 189/102, HR 108 Noncompliant with meds 2/2 miscommunication - see hpi CP likely 2/2 uncontrolled HTN HS troponin 19->21.9-> 24 Given IV Labetalol 10mg in ED Resume losartan 50mg BID, Toprol 50mg BID (uptitrate back to 100mg BID as able), terazosin 1mg HS, torsemide 20mg daily Chest CTA with no pulmonary emboli identified. No acute intrathoracic findings Last 2D echo from Sept 2024 admission - technically limited study, EF 55-60%, mild concentric LVH, AV sclerosis mild Weight is downtrending, no overt volume overload on CTA chest - resume home diuretic as above Trend troponin, monitor on tele, resume cardiac meds as above Daily weights, repeat EKG in AM DAMION, noncompliant with CPAP Likely contributing to above Needs outpatient sleep study History of gastroparesis No longer experiencing abdominal pain Following with Nutrition, GI, hopes for bariatric surgery in future PRN Bentyl, resumed PPI and H2 ryan, no longer taking Carafate Uncontrolled DM II BSG 334 on admission A1c 10.0 in Feb, 2024. Repeat in AM Given 8u regular insulin IV in ED --> BSG 230 Basal/bolus insulin while in-patient Glycemic consult placed BSG AC HS Hyperlipidemia Resumed statin Chronic hypercapnic respiratory failure COPD RLD 2/2 obesity Noncompliant with inhalers at home Not on home O2, saturating 94 on 2L NC O2, wean as tolerated Intellectual disability as per records Ongoing tobacco abuse 34 pack years, still smoking 1 ppd Declined nicotine patch DVT Ppx: SQ heparin Code status: FULL PCP: Erik Dispo: obs tele Patient seen in collaboration with Dr. Gallagher. Please see addendum. I spent a total of 75 minutes coordinating, documenting, and providing care for this patient excluding time spent in the performance of separately billed services. History of Present Illness Chief Complaint: Chest pain Primary Care Provider: Velasquez Valencia MD This is a 48-year-old male with PMH of type 2 diabetes, COPD, DAMION noncompliant with CPAP, morbid obesity, gastroparesis, history of BKA, history of noncardiac chest pain, diastolic heart failure, ongoing tobacco use disorder and other medical problems listed below who presents with chest pain. Patient reportedly stopped all home meds in July after conversation about gastroparesis potentially being worsened by medication side effects. He states this conversation was with PCP, but PCPs most recent note on 08/18 indicates patient to continue all medications. In the past few weeks, patient notes he is continue to have irregular bowel movements similar to previous but has less abdominal pain. Is due to follow-up with weight management as well as GI. Over the past week or so patient describes constant pain in left shoulder extending to left chest wall. No exacerbating or alleviating symptoms. No associated shortness of breath or nausea. Has not taken aspirin, statin or any blood pressure pills in the past few weeks. Went to bed with some of this pain but it was worsened upon waking, prompting patient's presentation to ED. States he has history of arthritis and this pain feels similar to this although more severe. No weakness or paresthesias in right upper extremity. Last 2D echo from Jun 2024 admission - technically limited study, EF 55-60%, mild concentric LVH, AV sclerosis mild. Allergies Allergy/AdvReac Type Severity Reaction Status Date / Time cefaclor [From Ceclor] Allergy Unknown childhood Verified 09/15/24 14:23 allergy ? Cephalosporins Allergy Unknown Unknown Verified 09/15/24 14:23 empagliflozin AdvReac Unknown put me Verified 09/15/24 14:23 [From Jardiance] into ketoacidosis? NSAIDS (Non-Steroidal AdvReac Unknown use with Verified 09/15/24 14:23 Anti-Inflamma caution : hx esophagus damage Home Medications Medication Instructions Recorded Confirmed Type insulin aspart U-100 100 unit/mL 22 unit subcut TID 06/09/19 09/15/24 History (3 mL) subcutaneous pen (Novolog FlexPen U-100 Insulin aspart) dicyclomine 10 mg capsule 10 mg PO QID PRN Diarrhea 05/01/20 09/15/24 History insulin glargine 100 unit/mL (3 48 unit subcut BID 09/06/22 09/15/24 History mL) subcutaneous pen (Lantus Solostar U-100 Insulin) aspirin 81 mg tablet,delayed 81 mg PO DAILY 09/15/24 09/15/24 History release atorvastatin 20 mg tablet 20 mg PO HS 09/15/24 09/15/24 History famotidine 20 mg tablet 20 mg PO HS 09/15/24 09/15/24 History losartan 50 mg tablet 50 mg PO BID 09/15/24 09/15/24 History metoprolol succinate 100 mg 100 mg PO BID 09/15/24 09/15/24 History tablet,extended release 24 hr omeprazole 40 mg capsule,delayed 40 mg PO DAILYBB 09/15/24 09/15/24 History release spironolactone 25 mg tablet 25 mg PO DAILY 09/15/24 09/15/24 History terazosin 1 mg capsule 1 mg PO HS 09/15/24 09/15/24 History torsemide 10 mg tablet 20 mg PO DAILY 09/15/24 09/15/24 History Past Med/Surg History Problem List (Updated 09/15/24 @ 18:57 by Mackenzie Shelton PA-C) Atypical chest pain Noncompliance with CPAP treatment Hypomagnesemia (Acute) Elevated lactic acid level (Acute) PASHA (acute kidney injury) (Acute) Abdominal pain (Acute) Acute and chronic respiratory failure with hypercapnia Shortness of breath (Acute) 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 Garcia Morbid obesity Chronic respiratory failure with hypercapnia Diabetic peripheral neuropathy associated with type 2 diabetes mellitus Loss of protective sensation of skin of foot Epigastric abdominal pain Encounter for pre-operative examination Colon polyp Medical History (Updated 09/15/24 @ 18:57 by Mackenzie Shelton PA-C) Chronic diastolic heart failure Volume overload Arthritis Low magnesium level History of RSV infection & flu a few months ago. Tachycardia chronic high heart rate - unknown etiology - a few months ago increased dose of metoprolol. Rhinovirus dx May 23 [facility] & another illness dx - ? name of /antibiotic and inhalers for. feeling better: only symptom : sore throat. COPD (chronic obstructive pulmonary disease) ? dx of Peripheral neuropathy Diabetes mellitus, type 2 Hypertension Tobacco use Restrictive lung disease Elevated liver function tests History of DVT (deep vein thrombosis) "years ago">no known cause Tussive syncope "occurred only one time, no recent issues" Esophagitis Osteoarthritis Hx of pancreatitis resolved GERD (gastroesophageal reflux disease) Cardiac murmur A CHILD Erectile dysfunction MRSA (methicillin resistant Staphylococcus aureus) carrier over 2 yrs ago>"not sure where it was" Intellectual disability Obstructive sleep apnea cpap Obesity IBS (irritable bowel syndrome) History of ventricular tachycardia "nonsustained" Surgical History History of appendectomy 02/10/2023 History of reduction of nasal fracture 09/25/21-Dr. Garcia Status post incision and drainage LLE History of shoulder surgery right-2019 H/O foot surgery LEFT-2018 History of arthroscopy LEFT [id number] History of esophagogastroduodenoscopy (EGD) History of colonoscopy with most recent attempt: failed prep. Told would need a 2 day prep prior to colonoscopy in Sep 2023. History of tooth extraction History of tonsillectomy and adenoidectomy 1979 Family History Brother Family history of diabetes mellitus Environmental allergies Asthma Mother Family history of diabetes mellitus Hypertension Environmental allergies Father Family history of diabetes mellitus Hypertension Heart disease Grandfather (Paternal) Lung cancer smoker Aunt Bleeding disorder Other No family history of adverse response to anesthesia Social History Smoking Status: Current every day smoker Tobacco Type: Cigarettes Age Started Using Tobacco: 14; Cigarettes Per Day: 1 pack; Second Hand Exposure: No; Do You Dip or Chew Tobacco: No; Hx Alcohol Use: Yes Alcohol type: beer Alcohol Intake Frequency: Monthly or Less Alcohol Intake Frequency Comment: seldom, a couple times per year if that per pt Hx Substance Use: No Preferred Language: Tuvaluan Communication Ability: Effective Master Sonar Technician Required: No Beliefs That Will Affect Care: None marital status: / marital status details: single at this time Current Living Situation: Significant Other Current Living Situation Comment: with Ni and dog, in home, 1 [address] current occupational status: employed 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 Physical Exam Physical Exam: General Appearance: WD/WN, vitals as above, NAD, sitting up in bed, pleasant, morbidly obese Head: normocephalic, atraumatic Eyes: normal inspection, PERRL, conjunctivae normal, anicteric sclerae ENT: external ear and nose normal, oropharynx normal Neck: normal visual inspection Respiratory: normal respiratory effort, lungs diminished bilaterally, no wheeze, rales, rhonchi. No accessory muscle use Cardiovascular: tachycardic rate, regular rhythm, normal peripheral pulses, 1+ BLE edema Chest: normal inspection of chest Abdomen/GI: normal bowel sounds, soft, nontender, no hepatosplenomegaly Extremities/Musculoskeletal: S/p L BKA, no cyanosis or clubbing, extremities motor strength 5/5 Neurologic: PERRL, EOMI, accommodation nl, no face palsy, no dysarthria, CN's II-XI intact bilaterally and moves all extremities Psychiatric: A+Ox3, euthymic affect Skin: no rashes, normal color, warm/dry Results & Data Results & Data Vital Signs (Past 12 Hours) Vital Signs Temp Pulse Pulse Resp BP BP Pulse Ox 09/15/24 16:43 102 H 170/100 H 09/15/24 16:41 97 H 09/15/24 16:28 108 H 162/93 H 09/15/24 16:00 108 H 18 162/93 H 92 09/15/24 14:00 102 H 20 174/89 H 92 09/15/24 12:32 107 H 09/15/24 12:24 105 H 20 143/91 H 93 09/15/24 11:36 09/15/24 11:19 111 H 20 175/86 H 91 09/15/24 10:59 36.6 C 112 H 20 189/102 H 94 O2 Del Method 09/15/24 16:43 09/15/24 16:41 09/15/24 16:28 09/15/24 16:00 Room Air 09/15/24 14:00 Room Air 09/15/24 12:32 09/15/24 12:24 Room Air 09/15/24 11:36 Room Air 09/15/24 11:19 Room Air 09/15/24 10:59 Room Air Laboratory Results Short CBC 09/15/24 Range/Units 11:32 WBC 7.73 (4.8-10.8) K/ul Hgb 13.1 L (14.0-18.0) g/dl Hct 40.2 L (42.0-52.0) % Plt Count 257 (130-400) K/uL BMP 09/15/24 11:32 Sodium 138 Potassium 4.4 Chloride 100 Carbon Dioxide 29 BUN 17 Creatinine 0.74 Glucose 334 H* Calcium 9.0 Liver Function 09/15/24 Range/Units 11:32 Total Bilirubin 0.4 (0.2-1.0) mg/dl AST 17 (13-39) U/L ALT 25 (7-52) U/L Alkaline Phosphatase 81 (34-104) U/L Albumin 3.4 (3.4-5.0) gm/dl Diagnostic Findings Chest X-Ray 09/15/24 11:33 EXAM: Radiograph of the Chest 1 View INDICATION: Chest pain. TECHNIQUE: Frontal view of the chest. COMPARISON: No relevant prior studies available. FINDINGS: Lungs and pleural spaces: Prominent interstitial markings appear chronic. No consolidation or pulmonary edema. No pleural effusion or pneumothorax. Heart: Prominent cardiac shadow accentuated by technique. Mediastinum: Normal contour. Bones/joints: No fracture, erosion or dislocation. Soft tissues: No abnormality noted. No radiopaque foreign body noted. Upper abdomen: No abnormality noted. IMPRESSION: No acute cardiopulmonary disease. ACT 112: Negative or not required by law. Electronically signed by Carol Salcido 09-15-2024 12:05 PM Chest CTA 09/15/24 12:31 CT ANGIOGRAPHY OF THE CHEST, PULMONARY EMBOLUS PROTOCOL CLINICAL HISTORY: Chest pain. Evaluate for pulmonary embolus. COMPARISON STUDY: Chest radiograph performed earlier today. Chest CT July 13, 2024. TECHNIQUE: Following IV administration of 120 mL of Optiray, helical axial images of the chest were obtained utilizing the pulmonary embolus protocol. Maximal intensity projections and sagittal and coronal reformats were viewed on an independent 3D workstation. IV contrast was administered without complication. Automated exposure control was utilized for the study. A dose lowering technique was utilized adhering to the principles of ALARA. CT DOSE: 994.92 mGy.cm FINDINGS: No pulmonary emboli are identified. There is no thoracic aortic dissection. The size of the heart is normal. There is no pericardial effusion. No enlarged axillary, mediastinal or hilar lymph nodes are present. No pneumothorax or pleural effusion is present. Central airways are patent. There is no consolidation to suggest pneumonia. There are no pulmonary nodules. Visualized portions of the upper abdomen demonstrate hepatic steatosis. IMPRESSION: 1. No pulmonary emboli identified. 2. No acute intrathoracic findings. ACT 112: Negative or not required by law. Electronically signed by: Serge Ghotra M.D. 09/15/2024 1:04 PM ECG Additional Comments: sinus tachycardia at 109 bpm, no significant change from previous Code Status & VTE Plan VTE Prophylaxis Plan VTE Prophylaxis will be ordered: Yes (3) Sleep apnea Sleep apnea type: unspecified type Qualified Code(s): G47.30 - Sleep apnea, unspecified
[2024-09-15] MEDS ORDERED: GLUCAGON FOR INJ 1 MG VIAL SQ PRN ×2 (18:00→19:24)
[2024-09-15] MEDS ORDERED: DEXTROSE 50% 50 ML SYRINGE IV PRN ×2 (18:00→19:24)
[2024-09-15] MEDS ORDERED: GLUCOSE 10 TAB/TUBE PO PRN ×2 (18:00→19:24)
[2024-09-15] MEDS ORDERED: GLUCOSE 40% GEL 15 GM TUBE PO PRN ×2 (18:00→19:24)
[2024-09-15] MEDS ORDERED: CARBOHYDRATES FOR HYPOGLYCEMIA PO PRN ×2 (18:00→19:24)
[2024-09-15] MEDS ORDERED: DICYCLOMINE HCL 10 MG CAP PO PRN (18:41)
[2024-09-15] MEDS ORDERED: ONDANSETRON INJ 2 MG/ML 2 ML VIAL IV PRN (19:24)
[2024-09-15] MEDS ORDERED: POLYETHYLENE (MIRALAX) 17 GM PACK PO PRN (19:24)
[2024-09-15] MEDS ORDERED: ACETAMINOPHEN 325 MG TAB PO PRN (19:24)
[2024-09-15] MEDS: INSULIN ASPART PER UNIT CHARGE SC SCH (20:12)
[2024-09-15] MEDS: LOSARTAN POTASSIUM 50 MG TAB PO ONE (20:13)
[2024-09-15] MEDS: LANTUS PER UNIT CHARGE SC ONE (20:13)
[2024-09-15] MEDS: ACETAMINOPHEN 500 MG TAB PO SCH (20:13)
[2024-09-15] MEDS: FAMOTIDINE 20 MG TAB PO SCH (20:14)
[2024-09-15] MEDS: METOPROLOL SUCC 50MG EXT REL TAB PO SCH (20:14)
[2024-09-15] MEDS: ATORVASTATIN 20 MG TAB PO SCH (20:14)
[2024-09-15] MEDS: TERAZOSIN HCL 1 MG CAP PO SCH (20:14)
--- NOTE | 2024-09-15 20:20 | Emergency Department Note ---
ED Provider Note CHIEF COMPLAINT: Chest pain HISTORY OF PRESENT ILLNESS: This 48-year-old male patient presents emergency department with complaints of left sided chest discomfort that radiates to the left neck and left arm. Patient states the pain in the left arm began 2 days ago but this morning the pain in the chest began. Patient states approximately a month ago he and his PCP decided to "stop all of my medications" because he believes he was taking too many and wanted a clean slate. He was not certain what was aggravating his digestive issues. The patient states that his heart rate always runs high. He denies any significant shortness of breath or fevers. REVIEW OF SYSTEMS: A review of systems was performed with positives and pertinent negatives listed in the history of present illness. 10 systems were reviewed and are otherwise negative. ALLERGIES: see below MEDICATIONS: see below PMH: see below SOCIAL HISTORY: see below DDx: Acute coronary syndrome, pulmonary embolus, aortic dissection, pneumonia, congestive heart failure, pleurisy among others. PHYSICAL EXAM: Vital signs reviewed. General: Chronically ill-appearing 48-year-old male, in no significant distress. HEENT: No scleral icterus, PERRLA, neck supple. Atraumatic. Cardiovascular: Regular rate and rhythm, no extra sounds. Pulmonary: Clear to auscultation bilaterally, normal work of breathing. Abdomen: Soft, obese, nontender, nondistended, positive bowel sounds. Musculoskeletal: Atraumatic, no peripheral edema. Left BKA Neurologic: Patient awake alert and oriented x 3, speech is clear Skin: Warm, dry, no rash EMERGENCY DEPARTMENT COURSE/MDM: [] MONITORING: An order for cardiac monitoring was placed and the patient is noted to be in a sinus tachycardia at 105 beats per minute. RADIOLOGY: Chest x-ray to my interpretation reveals no evidence of focal consolidation or failure. CT angiogram of the chest per radiology reveals no evidence of PE. EKG: To my interpretation reveals a sinus tachycardia at 109 bpm with previous anterior infarct, no evidence of acute ST change. 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 Garcia Morbid obesity Chronic respiratory failure with hypercapnia Diabetic peripheral neuropathy associated with type 2 diabetes mellitus Loss of protective sensation of skin of foot Epigastric abdominal pain Encounter for pre-operative examination Colon polyp Medical History Chronic diastolic heart failure Volume overload Arthritis Low magnesium level History of RSV infection & flu a few months ago. Tachycardia chronic high heart rate - unknown etiology - a few months ago increased dose of metoprolol. Rhinovirus dx May 23 [facility] & another illness dx - ? name of /antibiotic and inhalers for. feeling better: only symptom : sore throat. COPD (chronic obstructive pulmonary disease) ? dx of Peripheral neuropathy Diabetes mellitus, type 2 Hypertension Tobacco use Restrictive lung disease Elevated liver function tests History of DVT (deep vein thrombosis) "years ago">no known cause Tussive syncope "occurred only one time, no recent issues" Esophagitis Osteoarthritis Hx of pancreatitis resolved GERD (gastroesophageal reflux disease) Cardiac murmur A CHILD Erectile dysfunction MRSA (methicillin resistant Staphylococcus aureus) carrier over 2 yrs ago>"not sure where it was" Intellectual disability Obstructive sleep apnea cpap Obesity IBS (irritable bowel syndrome) History of ventricular tachycardia "nonsustained" Surgical History History of appendectomy 02/10/2023 History of reduction of nasal fracture 09/25/21-Dr. Garcia Status post incision and drainage LLE History of shoulder surgery right-2019 H/O foot surgery LEFT-2018 History of arthroscopy LEFT [id number] History of esophagogastroduodenoscopy (EGD) History of colonoscopy with most recent attempt: failed prep. Told would need a 2 day prep prior to colonoscopy in Sep 2023. History of tooth extraction History of tonsillectomy and adenoidectomy 1979 Family History Brother Family history of diabetes mellitus Environmental allergies Asthma Mother Family history of diabetes mellitus Hypertension Environmental allergies Father Family history of diabetes mellitus Hypertension Heart disease Grandfather (Paternal) Lung cancer smoker Aunt Bleeding disorder Other No family history of adverse response to anesthesia Social History Smoking Status: Current every day smoker Tobacco Type: Cigarettes Age Started Using Tobacco: 14; Cigarettes Per Day: 20; Second Hand Exposure: No; Do You Dip or Chew Tobacco: No; Tobacco Cessation Education Requested by Patient: No Hx Alcohol Use: No Hx Substance Use: No Preferred Language: Kyrgyz Communication Ability: Effective Extractor Operator Helper Required: No Beliefs That Will Affect Care: None marital status: / marital status details: single at this time Current Living Situation: Parent and Family Current Living Situation Comment: lives with mom current occupational status: employed 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 Cephalosporins Allergy Unknown Unknown Verified 09/15/24 14:23 empagliflozin AdvReac Unknown put me Verified 09/15/24 14:23 [From Jardiance] into ketoacidosis? NSAIDS (Non-Steroidal AdvReac Unknown use with Verified 09/15/24 14:23 Anti-Inflamma caution : hx esophagus damage Home Meds Home Medications Medication Instructions Recorded Confirmed insulin aspart U-100 100 unit/mL 22 unit subcut TID 06/09/19 09/15/24 (3 mL) subcutaneous pen (Novolog FlexPen U-100 Insulin aspart) dicyclomine 10 mg capsule 10 mg PO QID PRN Diarrhea 05/01/20 09/15/24 insulin glargine 100 unit/mL (3 48 unit subcut BID 09/06/22 09/15/24 mL) subcutaneous pen (Lantus Solostar U-100 Insulin) aspirin 81 mg tablet,delayed 81 mg PO DAILY 09/15/24 09/15/24 release atorvastatin 20 mg tablet 20 mg PO HS 09/15/24 09/15/24 famotidine 20 mg tablet 20 mg PO HS 09/15/24 09/15/24 losartan 50 mg tablet 50 mg PO BID 09/15/24 09/15/24 metoprolol succinate 100 mg 100 mg PO BID 09/15/24 09/15/24 tablet,extended release 24 hr omeprazole 40 mg capsule,delayed 40 mg PO DAILYBB 09/15/24 09/15/24 release spironolactone 25 mg tablet 25 mg PO DAILY 09/15/24 09/15/24 terazosin 1 mg capsule 1 mg PO HS 09/15/24 09/15/24 torsemide 10 mg tablet 20 mg PO DAILY 09/15/24 09/15/24 Results & Data (ED) Vital Signs Vital Signs - 24 hr 09/15/24 10:59 09/15/24 11:19 09/15/24 11:36 Temperature 36.6 C Temperature Source Oral Pulse Rate 112 H Pulse Rate [Apical] 111 H Respiratory Rate 20 20 Respiratory Effort / Characteristics Non-Labored Spontaneous Respiratory Depth Normal Respiratory Pattern Regular Blood Pressure 189/102 H Blood Pressure [Right Arm] 175/86 H Blood Pressure Mean 131 Blood Pressure Mean [Right Arm] 115 Blood Pressure Position [Right Arm] Pulse Oximetry 94 91 Oxygen Delivery Method Room Air Room Air Room Air Sepsis Recent Fever Within 48 Hours No Sepsis New/Unexplained Change in Mental Status N/A Sepsis Action Taken by Nursing No Action Required 09/15/24 12:24 09/15/24 12:32 09/15/24 14:00 Temperature Temperature Source Pulse Rate 107 H Pulse Rate [Apical] 105 H 102 H Respiratory Rate 20 20 Respiratory Effort / Characteristics Respiratory Depth Respiratory Pattern Blood Pressure Blood Pressure [Right Arm] 143/91 H 174/89 H Blood Pressure Mean Blood Pressure Mean [Right Arm] 108 117 Blood Pressure Position [Right Arm] Pulse Oximetry 93 92 Oxygen Delivery Method Room Air Room Air Sepsis Recent Fever Within 48 Hours Sepsis New/Unexplained Change in Mental Status Sepsis Action Taken by Nursing 09/15/24 16:00 09/15/24 16:28 09/15/24 16:41 Temperature Temperature Source Pulse Rate 108 H 97 H Pulse Rate [Apical] 108 H Respiratory Rate 18 Respiratory Effort / Characteristics Non-Labored Spontaneous Respiratory Depth Respiratory Pattern Blood Pressure 162/93 H Blood Pressure [Right Arm] 162/93 H Blood Pressure Mean Blood Pressure Mean [Right Arm] 116 Blood Pressure Position [Right Arm] Lying Pulse Oximetry 92 Oxygen Delivery Method Room Air Sepsis Recent Fever Within 48 Hours Sepsis New/Unexplained Change in Mental Status Sepsis Action Taken by Nursing 09/15/24 16:43 Temperature Temperature Source Pulse Rate 102 H Pulse Rate [Apical] Respiratory Rate Respiratory Effort / Characteristics Respiratory Depth Respiratory Pattern Blood Pressure 170/100 H Blood Pressure [Right Arm] Blood Pressure Mean Blood Pressure Mean [Right Arm] Blood Pressure Position [Right Arm] Pulse Oximetry Oxygen Delivery Method Sepsis Recent Fever Within 48 Hours Sepsis New/Unexplained Change in Mental Status Sepsis Action Taken by Snf Medications Current Medication List: was personally reviewed by me Laboratory Data Attestation: I reviewed the patient's lab results. 09/15/24 11:32 09/15/24 11:32 Lab Results 09/15/24 09/15/24 09/15/24 Range/Units 11:32 13:17 14:58 WBC 7.73 (4.8-10.8) K/ul RBC 4.87 (4.70-6.10) M/uL Hgb 13.1 L (14.0-18.0) g/dl Hct 40.2 L (42.0-52.0) % MCV 82.5 (80.0-100.0) fL MCH 26.9 (25.0-34.0) pg MCHC 32.6 (32.0-36.0) g/dL RDW Std Deviation 41.4 (36.4-46.3) fL RDW Coeff of Abiodun 13.7 (11.5-14.5) % Plt Count 257 (130-400) K/uL MPV 9.7 (9.4-12.4) fL Immature Gran % (Auto) 1.9 % Neut % (Auto) 62.0 % Lymph % (Auto) 23.2 % [place] % (Auto) 8.0 % Eos % (Auto) 4.0 % Baso % (Auto) 0.9 % Neut # (Auto) 4.79 (1.40-6.50) K/uL Lymph # (Auto) 1.79 (1.20-3.40) K/uL [place] # (Auto) 0.62 H (0.11-0.59) K/uL Eos # (Auto) 0.31 (0.00-0.50) K/uL Baso # (Auto) 0.07 (0.00-0.20) K/uL Immature Gran # (Auto) 0.15 (0.01-0.20) K/uL PT 10.1 (9.0-12.0) Seconds INR 0.9 (0.9-1.1) APTT 25 (21-31) Seconds PTT Ratio 0.9 D-Dimer 640 H* (0-500) ug/L FEU Sodium 138 (136-145) mmol/L Potassium 4.4 (3.5-5.1) mmol/L Chloride 100 (98-107) mmol/L Carbon Dioxide 29 (21-32) mmol/L Anion Gap 9 (3-11) BUN 17 (6-23) mg/dl Creatinine 0.74 (0.6-1.4) mg/dl Est Cr Clr Drug Dosing 191.6 ml/min eGFR 110.39 BUN/Creatinine Ratio 23.0 H (10-20) Glucose 334 H* (70-99(Fasting)) mg/dl POC Glucose (70-99) mg/dl Calcium 9.0 (8.6-10.3) mg/dl Total Bilirubin 0.4 (0.2-1.0) mg/dl AST 17 (13-39) U/L ALT 25 (7-52) U/L Alkaline Phosphatase 81 (34-104) U/L Troponin I High Sens 19.9 21.9 H 24.0 H (0-20) pg/ml Total Protein 6.6 (6.0-8.3) gm/dl Albumin 3.4 (3.4-5.0) gm/dl Globulin 3.2 (2.5-4.0) gm/dl Albumin/Globulin Ratio 1.1 (0.9-2) Lipase 23 (11-82) U/L 09/15/24 Range/Units 15:56 WBC (4.8-10.8) K/ul RBC (4.70-6.10) M/uL Hgb (14.0-18.0) g/dl Hct (42.0-52.0) % MCV (80.0-100.0) fL MCH (25.0-34.0) pg MCHC (32.0-36.0) g/dL RDW Std Deviation (36.4-46.3) fL RDW Coeff of Abiodun (11.5-14.5) % Plt Count (130-400) K/uL MPV (9.4-12.4) fL Immature Gran % (Auto) % Neut % (Auto) % Lymph % (Auto) % [place] % (Auto) % Eos % (Auto) % Baso % (Auto) % Neut # (Auto) (1.40-6.50) K/uL Lymph # (Auto) (1.20-3.40) K/uL [place] # (Auto) (0.11-0.59) K/uL Eos # (Auto) (0.00-0.50) K/uL Baso # (Auto) (0.00-0.20) K/uL Immature Gran # (Auto) (0.01-0.20) K/uL PT (9.0-12.0) Seconds INR (0.9-1.1) APTT (21-31) Seconds PTT Ratio D-Dimer (0-500) ug/L FEU Sodium (136-145) mmol/L Potassium (3.5-5.1) mmol/L Chloride (98-107) mmol/L Carbon Dioxide (21-32) mmol/L Anion Gap (3-11) BUN (6-23) mg/dl Creatinine (0.6-1.4) mg/dl Est Cr Clr Drug Dosing ml/min eGFR BUN/Creatinine Ratio (10-20) Glucose (70-99(Fasting)) mg/dl POC Glucose 230 H (70-99) mg/dl Calcium (8.6-10.3) mg/dl Total Bilirubin (0.2-1.0) mg/dl AST (13-39) U/L ALT (7-52) U/L Alkaline Phosphatase (34-104) U/L Troponin I High Sens (0-20) pg/ml Total Protein (6.0-8.3) gm/dl Albumin (3.4-5.0) gm/dl Globulin (2.5-4.0) gm/dl Albumin/Globulin Ratio (0.9-2) Lipase (11-82) U/L Administered Medications Discontinued Medications Insulin Human Regular (Novolin-R Insulin Per Unit Charge) 8 units IV NOW STA Stop: 09/15/24 15:18 Last Admin: 09/15/24 16:28 Dose: 8 units Documented By: GLENNA Co-signed By: LOLA Ioversol (Optiray 320 125ml) 120 ml IV ONCE ONE Stop: 09/15/24 12:53 Last Admin: 09/15/24 12:53 Dose: 120 ml Documented By: SINGH Ketorolac Tromethamine (Ketorolac Tromethamine 15 Mg/Ml Vial) 10 mg IV NOW ONE Stop: 09/15/24 13:24 Last Admin: 09/15/24 13:48 Dose: 10 mg Documented By: FLORENCIO Labetalol HCl (Labetalol Hcl Iv 5 Mg/Ml 20ml) 10 mg IV NOW STA Stop: 09/15/24 16:04 Last Admin: 09/15/24 16:28 Dose: 10 mg Documented By: GLENNA Imaging Data Radiologist's Impression: Chest X-Ray 09/15/24 11:33 EXAM: Radiograph of the Chest 1 View INDICATION: Chest pain. TECHNIQUE: Frontal view of the chest. COMPARISON: No relevant prior studies available. FINDINGS: Lungs and pleural spaces: Prominent interstitial markings appear chronic. No consolidation or pulmonary edema. No pleural effusion or pneumothorax. Heart: Prominent cardiac shadow accentuated by technique. Mediastinum: Normal contour. Bones/joints: No fracture, erosion or dislocation. Soft tissues: No abnormality noted. No radiopaque foreign body noted. Upper abdomen: No abnormality noted. IMPRESSION: No acute cardiopulmonary disease. ACT 112: Negative or not required by law. Electronically signed by Carol Salcido 09-15-2024 12:05 PM Chest CTA 09/15/24 12:31 CT ANGIOGRAPHY OF THE CHEST, PULMONARY EMBOLUS PROTOCOL CLINICAL HISTORY: Chest pain. Evaluate for pulmonary embolus. COMPARISON STUDY: Chest radiograph performed earlier today. Chest CT July 13, 2024. TECHNIQUE: Following IV administration of 120 mL of Optiray, helical axial images of the chest were obtained utilizing the pulmonary embolus protocol. Maximal intensity projections and sagittal and coronal reformats were viewed on an independent 3D workstation. IV contrast was administered without complication. Automated exposure control was utilized for the study. A dose lowering technique was utilized adhering to the principles of ALARA. CT DOSE: 994.92 mGy.cm FINDINGS: No pulmonary emboli are identified. There is no thoracic aortic dissection. The size of the heart is normal. There is no pericardial effusion. No enlarged axillary, mediastinal or hilar lymph nodes are present. No pneumothorax or pleural effusion is present. Central airways are patent. There is no consolidation to suggest pneumonia. There are no pulmonary nodules. Visualized portions of the upper abdomen demonstrate hepatic steatosis. IMPRESSION: 1. No pulmonary emboli identified. 2. No acute intrathoracic findings. ACT 112: Negative or not required by law. Electronically signed by: Serge Ghotra M.D. 09/15/2024 1:04 PM Discharge Plan Visit Data Chief Complaint: Arm Pain Stated Complaint: L ARM, SHOULDER AND CHEST PAIN ED Provider: Eulalia Ribeiro Patient Disposition: Admitted As Inpatient Discharge Instructions Interventions: ED Discharge Assessment Last Done: 09/15/24 18:37
[2024-09-15] MEDS ORDERED: LANTUS PER UNIT CHARGE SQ SCH (21:00)
[2024-09-16] MEDS: INSULIN ASPART PER UNIT CHARGE SC SCH (00:01)
[2024-09-16] MEDS: HEPARIN SOD 5,000 UNIT/0.5 ML VIAL SQ SCH (00:01)
[2024-09-16] MEDS: PANTOprazole 40 MG TAB PO SCH (05:31)
[2024-09-16 06:13] LABS: Hematocrit (blood only) 39.3 % (42.0-52.0); Hemoglobin 12.5 g/dl (14.0-18.0); Mean Corpuscular Hemoglobin 26.6 pg (25.0-34.0); Mean Corpuscular Hgb Conc 31.8 g/dL (32.0-36.0); Mean Corpuscular Volume 83.6 fL (80.0-100.0); Mean Platelet Volume 9.7 fL (9.4-12.4); Platelet Count 249 K/uL (130-400); RDW Standard Deviation 42.5 fL (36.4-46.3); White Blood Count 6.55 K/ul (4.8-10.8)
[2024-09-16 06:25] LABS: Calcium 8.7 mg/dl (8.6-10.3); Creatinine Clr Calc Pharmacy 155.4 ml/min; Potassium 4.4 mmol/L (3.5-5.1)
[2024-09-16 06:30] LABS: Troponin I High Sensitivity 16.6 pg/ml (0-20)
--- NOTE | 2024-09-16 07:05 | Electrocardiogram Report ---
Test Reason : Blood Pressure : */* mmHG Vent. Rate : 93 BPM Atrial Rate : 93 BPM P-R Int : 140 ms QRS Dur : 96 ms QT Int : 384 ms P-R-T Axes : 52 80 29 degrees QTcB Int : 477 ms Poor data quality, interpretation may be adversely affected Normal sinus rhythm Cannot rule out Anterior infarct (cited on or before 15-Sep-2024) Abnormal ECG When compared with ECG of 15-Sep-2024 11:10, (unconfirmed) No significant change Confirmed by Nishant Shah ([id number]) on 09/16/2024 7:04:39 AM Referred By: REFERRED SELF Confirmed By: Nishant Shah
[2024-09-16 07:24] LABS: Estimated Average Glucose 278 mg/dl; Hemoglobin A1C 11.3 % (4.5-5.6)
--- NOTE | 2024-09-16 07:50 | Electrocardiogram Report ---
Test Reason : Blood Pressure : */* mmHG Vent. Rate : 109 BPM Atrial Rate : 109 BPM P-R Int : 124 ms QRS Dur : 94 ms QT Int : 340 ms P-R-T Axes : 70 14 60 degrees QTcB Int : 457 ms Sinus tachycardia Possible Anterior infarct (cited on or before 26-Jul-2024) Abnormal ECG When compared with ECG of 26-Jul-2024 09:53, No significant change was found Confirmed by Nishant Shah ([id number]) on 09/16/2024 7:49:57 AM Referred By: Confirmed By: Nishant Shah
[2024-09-16] MEDS: LANTUS PER UNIT CHARGE SC ONE (08:08)
[2024-09-16] MEDS: ASPIRIN 81 MG ECTAB PO SCH (08:11)
[2024-09-16] MEDS: LOSARTAN POTASSIUM 50 MG TAB PO SCH (08:12)
[2024-09-16] MEDS: SPIRONOLACTONE 25 MG TAB PO SCH (08:13)
[2024-09-16] MEDS: TORSEMIDE 20 MG TAB PO SCH (08:13)
[2024-09-16] MEDS ORDERED: traMADol HCL 50 MG TABLET PO PRN (10:09)
[2024-09-16] MEDS ORDERED: PROMETHAZINE 12.5 MG/50.5 ML BAG IV PRN (10:09)
--- NOTE | 2024-09-16 13:48 | Pharmacy Report ---
Pharmacy Glycemic Short Note 2 - Date of Service September 16, 2024 - Glycemic Short BSG Results (Last 24 hours): 09/15/24 09/15/24 09/15/24 15:56 19:37 23:47 Glucose POC Glucose 230 H 286 H 258 H 09/16/24 09/16/24 09/16/24 04:32 05:35 07:24 Glucose 252 H POC Glucose 242 H 243 H 09/16/24 11:31 Glucose POC Glucose 227 H OUTPATIENT ANTIDIABETIC REGIMEN: * NovoLog 22 units SQ TID * Lantus 48 units BID * HbA1c 11.3% (09/16/24) increased from 8.8% (10/16/23) ASSESSMENT: * Bry is a 48 YOM admitted with chest pain and a history of type 2 diabetes mellitus. Pharmacy has been consulted to assist with glycemic management while inpatient. * No glycemic stressors noted at this time * Basal/bolus insulin initiated at a weight based stress of 3, slightly below home dosage, suspect need for uptitration due to increase A1c, will continue to monitor PLAN FOR INPATIENT GLYCEMIC CONTROL: * Hold outpatient oral diabetes medications * Basal insulin * Lantus 40 units SQ QAM * Lantus 35-45 units SQ HS based on BSG (see eMAR for additional details) * Bolus insulin * NovoLog per scale ACHS or Q6hrs while NPO * Goal Range: Low 110 mg/dL - High 140 mg/dL * Correction Factor: 15 mg/dL/unit * Nutritional / Prandial insulin per carb ratio of 1 unit per 5 grams CHO consumed
--- NOTE | 2024-09-16 16:19 | Hospitalist Progress Note ---
Date of Service September 16, 2024 Assessment & Plan (1) Atypical chest pain: (2) Morbid obesity: (3) Sleep apnea: (4) Noncompliance with CPAP treatment: (5) Acute and chronic respiratory failure with hypercapnia: (6) Diabetes mellitus, type 2: (7) HTN (hypertension): (8) Depression: (9) Gastroparesis: (10) Intellectual disability: (11) COPD (chronic obstructive pulmonary disease): (12) Chronic diastolic heart failure: Plan Per admitting service notes with addendum: This is a 48-year-old male with PMH of type 2 diabetes, COPD, DAMION noncompliant with CPAP, morbid obesity, gastroparesis, history of BKA, history of noncardiac chest pain, diastolic heart failure, ongoing tobacco use disorder and other medical problems listed below who presents with chest pain. Atypical chest pain Hypertensive urgency HFpEF BP 189/102, HR 108 Noncompliant with meds 2/2 miscommunication - see hpi CP likely 2/2 uncontrolled HTN HS troponin 19->21.9-> 24 Given IV Labetalol 10mg in ED Resume losartan 50mg BID, Toprol 50mg BID (uptitrate back to 100mg BID as able), terazosin 1mg HS, torsemide 20mg daily Chest CTA with no pulmonary emboli identified. No acute intrathoracic findings Last 2D echo from Jun 2024 admission - technically limited study, EF 55-60%, mild concentric LVH, AV sclerosis mild Weight is downtrending, no overt volume overload on CTA chest - resume home diuretic as above Trend troponin, monitor on tele, resume cardiac meds as above Daily weights, repeat EKG in AM 09/16 Blood pressure now improved after initiation of patient's usual antihypertensives Still having persistent left upper chest wall pain radiating to the left shoulder and upper arm Troponins 21, 24, 23, 16 EKG no signs of acute ischemia or infarct Echocardiogram pending Chest pain sounds atypical Already on aspirin, atorvastatin, metoprolol Cardiology service consulted DAMION, noncompliant with CPAP Likely contributing to above Needs outpatient sleep study History of gastroparesis No longer experiencing abdominal pain Following with Nutrition, GI, hopes for bariatric surgery in future PRN Bentyl, resumed PPI and H2 ryan, no longer taking Carafate Uncontrolled DM II BSG 334 on admission A1c 10.0 in Feb, 2024. Repeat in AM Given 8u regular insulin IV in ED --> BSG 230 Basal/bolus insulin while in-patient Glycemic consult placed BSG AC HS Hyperlipidemia Resumed statin Chronic hypercapnic respiratory failure COPD RLD 2/2 obesity Noncompliant with inhalers at home Not on home O2, saturating 94 on 2L NC O2, wean as tolerated Intellectual disability as per records Ongoing tobacco abuse 34 pack years, still smoking 1 ppd Declined nicotine patch DVT Ppx: SQ heparin Code status: FULL PCP: Erik Dispo: obs tele Admission and Anticipated Discharge Date Admission Date: September 16, 2024 Subjective Follow-up for hypertensive urgency, chest pain, etc. Seen resting in bed, comfortable, sleeping but easily awakened Not in distress States he feels okay overall except he is still having left upper chest discomfort radiating to the left shoulder and left upper arm Described as sharp pain, but not related to movement Pain has been persistent since yesterday No associated nausea vomiting, dizziness, sweating, shortness of breath No other new symptoms Review of Systems Review of Systems: all noted and negative except for above Physical Exam Physical Exam: General- oriented x 3, not in distress, speaks in sentences with no effort or accessory muscle use Eyes- anicteric Neck- no JVD Lungs- clear breath sounds bilaterally, No crackles or wheezing No tenderness on palpation of the chest wall Heart- normal rate, regular rhythm; no murmurs Abdomen- normal bowel sounds, nondistended, soft, nontender Extremities- no pretibial edema, no calf tenderness Neuro- alert, oriented x 3; no gross focal neurologic deficits Skin- warm & dry Results & Data Results & Data Vital Signs (Past 12 Hours) Vital Signs Temp Pulse Pulse Resp BP Pulse Ox O2 Del Method 09/16/24 15:40 91 H 09/16/24 11:32 36.7 C 93 H 18 135/77 95 Room Air 09/16/24 08:19 Room Air 09/16/24 07:49 93 H 09/16/24 07:21 36.7 C 91 H 17 119/53 L 95 Room Air all noted and reviewed including below (3) Sleep apnea Sleep apnea type: unspecified type Qualified Code(s): G47.30 - Sleep apnea, unspecified
[2024-09-17] MEDS ORDERED: PHARMACY GLYCEMIC MGMT CONSULT PRN (07:53)
[2024-09-17] MEDS: LANTUS PER UNIT CHARGE SC SCH (08:14)
[2024-09-17] MEDS ORDERED: LANTUS PER UNIT CHARGE SC SCH ×3 (09:00→21:00)
--- NOTE | 2024-09-17 13:30 | Cardiology Consultation ---
<Statement entered by Chandni Wayne, DO - 09/17/24 16:07> I have reviewed the advanced practitioner's documentation and agree with the plan of care. I accept the responsibility for the associated risk. Pt seen in cardiology consultation due to chest pain with cardiac risk factors of HTN, HLD and uncontrolled DM. Pt had not been taking his medications for about 2 months due to gastric paresis he had some chest pain on admission in the setting of markedly elevated BP he was restarted on his cardiac medications and BP improved and no longer had any recurrent chest pain His insulin is being adjusted recommend out patient nuclear stress test; sounds like pt was not aware of one being recommended and scheduled in the past recommend he get back with [facility] for DM management We coordinated these follow ups and testing in [facility] today he is otherwise ok for hospital discharge today I discussed the case and my recommendations with the hospitalist over the phone and he agreed with my plan Date of Consultation September 17, 2024 Assessment & Plan (1) Chest pain: (2) Chronic diastolic heart failure: (3) Acute and chronic respiratory failure with hypercapnia: (4) Noncompliance with CPAP treatment: (5) Hypertension: Plan -has been restarted on home medications including diuretics and antihypertensives -HR and BP currently well controlled -DM II noted to be poorly controlled A1c 11.3 -given his personal risk factors for coronary disease he should undergo an ischemic workup, this chest pain has resolved this can be coordinated as an outpatient -He is also established with [facility] clinic for management of type 2 diabetes which was initially scheduled for tomorrow but he canceled due to being currently admitted -continue Toprol, torsemide, ASA, Atorvastatin, losartan and spironolactone -Optimized and cleared for discharge from a cardiac perspective -Will coordinate scheduling nuclear stress test as an outpatient -Will also reach out to [facility] clinic to get him rescheduled for evaluation for OmniPod Case discussed with Dr. Wayne. Please see attestation for additional recommendations. SHY Whelan Department of Cardiology, [facility] This chart was completed in part utilizing Speech Voice Recognition Software. Grammatical errors, random word insertions, pronoun errors, and incomplete sentences are an occasional consequence of this system due to software limitations, ambient noise, and hardware issues. Any formal questions or concerns about the content, text, or information contained within the body of this dictation should be directly addressed to the provider for clarification. History of Present Illness Reason for Consultation: Chest Pain Requesting Physician: Hospitalist Attending Physician: Luis Gallagher DO History of Present Illness 48 year old patient seen in consultation today in regards to chest discomfort. He initially presented to the emergency room on 09/15 reporting left-sided chest discomfort radiating to his left neck and arm that began 2 days prior to presentation. Reportedly had stopped all of his medications approximately 1 month ago because he believed he was taking the medication medications and wanted us to have a clean Slate. Has been struggling with digestive issues I was not sure what was causing these. He was noted to be significantly hypertensive in the emergency room with a blood pressure of 189/102 and a heart rate of 108. He had a known past medical history of DMII, COPD, DAMION non- compliant with CPAP, obesity, BKA, noncardiac chest pain, diastolic CHF, and ongoing tobacco use. Blood pressures much better today but still having left upper chest pain radiating in the left arm. Chest pain now resolved. Allergies Allergy/AdvReac Type Severity Reaction Status Date / Time cefaclor [From Ceclor] Allergy Unknown childhood Verified 09/15/24 14:23 allergy ? Cephalosporins Allergy Unknown Unknown Verified 09/15/24 14:23 empagliflozin AdvReac Unknown put me Verified 09/15/24 14:23 [From Jardiance] into ketoacidosis? NSAIDS (Non-Steroidal AdvReac Unknown use with Verified 09/15/24 14:23 Anti-Inflamma caution : hx esophagus damage Home Medications Medication Instructions Recorded Confirmed Type insulin aspart U-100 100 unit/mL 22 unit subcut TID 06/09/19 09/15/24 History (3 mL) subcutaneous pen (Novolog FlexPen U-100 Insulin aspart) dicyclomine 10 mg capsule 10 mg PO QID PRN Diarrhea 05/01/20 09/15/24 History insulin glargine 100 unit/mL (3 48 unit subcut BID 09/06/22 09/15/24 History mL) subcutaneous pen (Lantus Solostar U-100 Insulin) aspirin 81 mg tablet,delayed 81 mg PO DAILY 30 days #30 tabs 09/17/24 Rx release atorvastatin 20 mg tablet 20 mg PO HS 30 days #30 tabs 09/17/24 Rx famotidine 20 mg tablet 20 mg PO HS 30 days #30 tabs 09/17/24 Rx losartan 50 mg tablet 50 mg PO BID 30 days #30 tabs 09/17/24 Rx metoprolol succinate 50 mg 50 mg PO BID 30 days #60 tabs 09/17/24 Rx tablet,extended release 24 hr omeprazole 40 mg capsule,delayed 40 mg PO DAILYBB 30 days #30 caps 09/17/24 Rx release spironolactone 25 mg tablet 25 mg PO DAILY 30 days #30 tabs 09/17/24 Rx terazosin 1 mg capsule 1 mg PO HS 30 days #30 caps 09/17/24 Rx torsemide 10 mg tablet 20 mg (2 x 10 mg) PO DAILY 30 days 09/17/24 Rx #60 tabs Patient History Medical History Chronic diastolic heart failure Volume overload Arthritis Low magnesium level History of RSV infection & flu a few months ago. Tachycardia chronic high heart rate - unknown etiology - a few months ago increased dose of metoprolol. Rhinovirus dx May 23 [facility] & another illness dx - ? name of /antibiotic and inhalers for. feeling better: only symptom : sore throat. COPD (chronic obstructive pulmonary disease) ? dx of Peripheral neuropathy Diabetes mellitus, type 2 Hypertension Tobacco use Restrictive lung disease Elevated liver function tests History of DVT (deep vein thrombosis) "years ago">no known cause Tussive syncope "occurred only one time, no recent issues" Esophagitis Osteoarthritis Hx of pancreatitis resolved GERD (gastroesophageal reflux disease) Cardiac murmur A CHILD Erectile dysfunction MRSA (methicillin resistant Staphylococcus aureus) carrier over 2 yrs ago>"not sure where it was" Intellectual disability Obstructive sleep apnea cpap Obesity IBS (irritable bowel syndrome) History of ventricular tachycardia "nonsustained" Surgical History History of appendectomy 02/10/2023 History of reduction of nasal fracture 09/25/21-Dr. Garcia Status post incision and drainage LLE History of shoulder surgery right-2019 H/O foot surgery LEFT-2018 History of arthroscopy LEFT [id number] History of esophagogastroduodenoscopy (EGD) History of colonoscopy with most recent attempt: failed prep. Told would need a 2 day prep prior to colonoscopy in Sep 2023. History of tooth extraction History of tonsillectomy and adenoidectomy 1979 Family History Brother Family history of diabetes mellitus Environmental allergies Asthma Mother Family history of diabetes mellitus Hypertension Environmental allergies Father Family history of diabetes mellitus Hypertension Heart disease Grandfather (Paternal) Lung cancer smoker Aunt Bleeding disorder Other No family history of adverse response to anesthesia Social History Smoking Status: Current every day smoker Tobacco Type: Cigarettes Age Started Using Tobacco: 14; Cigarettes Per Day: 20; Second Hand Exposure: No; Do You Dip or Chew Tobacco: No; Tobacco Cessation Education Requested by Patient: No Hx Alcohol Use: No Hx Substance Use: No Preferred Language: Algerian Communication Ability: Effective Unemployment Specialist Required: No Beliefs That Will Affect Care: None marital status: / marital status details: single at this time Current Living Situation: Parent and Family Current Living Situation Comment: lives with mom current occupational status: employed 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 Other Information That Helps Us Care for You: No other: girlfriend able to assist with dressing changes and care as needed Feels Safe at Home: Yes Safety Concerns: Feels Safe At This Time Diet: diabetic during the past year weight has: remained stable Assistive Devices: Wheelchair Review of Systems Constitutional: as per Subjective / HPI Physical Exam Constitutional: WD/WN, vitals as above + morbidly obese; no acute distress Neck: trachea midline, no thyromegaly Respiratory: normal respiratory effort, lungs clear to auscultation Cardiovascular: Rate/Rhythm: regular rate and regular rhythm Heart Sounds: normal S1 and normal S2 Vessels: no JVD Gastrointestinal (Abdomen): normal bowel sounds, soft, nontender, no hepatosplenomegaly Skin: no rashes, warm and dry Psychiatric: Orientation: alert and oriented x 3 Results & Data Vital Signs (Past 12 Hours) Vital Signs Temp Pulse Resp BP Pulse Ox O2 Del Method O2 Flow Rate 09/17/24 11:07 37.1 C 92 H 17 106/65 90 Room Air 09/17/24 07:14 Room Air, Nasal Cannula 2 09/17/24 07:13 92 Nasal Cannula 2 09/17/24 07:10 36.8 C 102 H 20 136/36 L 80 L Room Air 09/17/24 03:00 36.7 C 91 H 21 120/90 93 Room Air Laboratory Results Intake and Output 09/16/24 09/17/24 09/17/24 22:59 06:59 14:59 Intake Total 240 / 1020 300 / 1020 Output Total 300 / 3400 900 / 3400 1800 / 1800 Balance -60 / -2380 -600 / -2380 -1800 / -1800 Intake: Oral 240 / 1020 300 / 1020 Output: Urine 300 / 3400 900 / 3400 1800 / 1800 Other: Weight 159.4 kg Weight Measurement Method Built in [facility] Diagnostic Findings Laboratory Results WBC 6.55 K/ul (4.8-10.8) 09/16/24 05:35 RBC 4.70 M/uL (4.70-6.10) 09/16/24 05:35 Hgb 12.5 g/dl (14.0-18.0) L 09/16/24 05:35 Hct 39.3 % (42.0-52.0) L 09/16/24 05:35 MCV 83.6 fL (80.0-100.0) 09/16/24 05:35 MCH 26.6 pg (25.0-34.0) 09/16/24 05:35 MCHC 31.8 g/dL (32.0-36.0) L 09/16/24 05:35 RDW Std Deviation 42.5 fL (36.4-46.3) 09/16/24 05:35 RDW Coeff of Abiodun 14.0 % (11.5-14.5) 09/16/24 05:35 Plt Count 249 K/uL (130-400) 09/16/24 05:35 MPV 9.7 fL (9.4-12.4) 09/16/24 05:35 Immature Gran % (Auto) 1.9 % 09/15/24 11:32 Neut % (Auto) 62.0 % 09/15/24 11:32 Lymph % (Auto) 23.2 % 09/15/24 11:32 Clinch % (Auto) 8.0 % 09/15/24 11:32 Eos % (Auto) 4.0 % 09/15/24 11:32 Baso % (Auto) 0.9 % 09/15/24 11:32 Neut # (Auto) 4.79 K/uL (1.40-6.50) 09/15/24 11:32 Lymph # (Auto) 1.79 K/uL (1.20-3.40) 09/15/24 11:32 Clinch # (Auto) 0.62 K/uL (0.11-0.59) H 09/15/24 11:32 Eos # (Auto) 0.31 K/uL (0.00-0.50) 09/15/24 11:32 Baso # (Auto) 0.07 K/uL (0.00-0.20) 09/15/24 11:32 Immature Gran # (Auto) 0.15 K/uL (0.01-0.20) 09/15/24 11:32 PT 10.1 Seconds (9.0-12.0) 09/15/24 11:32 INR 0.9 (0.9-1.1) 09/15/24 11:32 APTT 25 Seconds (21-31) 09/15/24 11:32 PTT Ratio 0.9 09/15/24 11:32 D-Dimer 640 ug/L FEU (0-500) H* 09/15/24 11:32 Sodium 139 mmol/L (136-145) 09/16/24 05:35 Potassium 4.4 mmol/L (3.5-5.1) 09/16/24 05:35 Chloride 103 mmol/L (98-107) 09/16/24 05:35 Carbon Dioxide 27 mmol/L (21-32) 09/16/24 05:35 Anion Gap 9 (3-11) 09/16/24 05:35 BUN 23 mg/dl (6-23) 09/16/24 05:35 Creatinine 0.92 mg/dl (0.6-1.4) 09/16/24 05:35 Est Cr Clr Drug Dosing 155.4 ml/min 09/16/24 05:35 eGFR 101.34 09/16/24 05:35 BUN/Creatinine Ratio 25.0 (10-20) H 09/16/24 05:35 Glucose 252 mg/dl (70-99(Fasting)) H 09/16/24 05:35 POC Glucose 253 mg/dl (70-99) H 09/17/24 11:10 Estimat Average Glucose 278 mg/dl 09/16/24 05:35 Hemoglobin A1c 11.3 % (4.5-5.6) H 09/16/24 05:35 Calcium 8.7 mg/dl (8.6-10.3) 09/16/24 05:35 Total Bilirubin 0.4 mg/dl (0.2-1.0) 09/15/24 11:32 AST 17 U/L (13-39) 09/15/24 11:32 ALT 25 U/L (7-52) 09/15/24 11:32 Alkaline Phosphatase 81 U/L (34-104) 09/15/24 11:32 Troponin I High Sens 16.6 pg/ml (0-20) D 09/16/24 05:35 Total Protein 6.6 gm/dl (6.0-8.3) 09/15/24 11:32 Albumin 3.4 gm/dl (3.4-5.0) 09/15/24 11:32 Globulin 3.2 gm/dl (2.5-4.0) 09/15/24 11:32 Albumin/Globulin Ratio 1.1 (0.9-2) 09/15/24 11:32 Lipase 23 U/L (11-82) 09/15/24 11:32 Impressions Chest X-Ray 09/15/24 11:33 EXAM: Radiograph of the Chest 1 View INDICATION: Chest pain. TECHNIQUE: Frontal view of the chest. COMPARISON: No relevant prior studies available. FINDINGS: Lungs and pleural spaces: Prominent interstitial markings appear chronic. No consolidation or pulmonary edema. No pleural effusion or pneumothorax. Heart: Prominent cardiac shadow accentuated by technique. Mediastinum: Normal contour. Bones/joints: No fracture, erosion or dislocation. Soft tissues: No abnormality noted. No radiopaque foreign body noted. Upper abdomen: No abnormality noted. IMPRESSION: No acute cardiopulmonary disease. ACT 112: Negative or not required by law. Electronically signed by Carol Salcido 09-15-2024 12:05 PM Chest CTA 09/15/24 12:31 CT ANGIOGRAPHY OF THE CHEST, PULMONARY EMBOLUS PROTOCOL CLINICAL HISTORY: Chest pain. Evaluate for pulmonary embolus. COMPARISON STUDY: Chest radiograph performed earlier today. Chest CT July 13, 2024. TECHNIQUE: Following IV administration of 120 mL of Optiray, helical axial images of the chest were obtained utilizing the pulmonary embolus protocol. Maximal intensity projections and sagittal and coronal reformats were viewed on an independent 3D workstation. IV contrast was administered without complication. Automated exposure control was utilized for the study. A dose lowering technique was utilized adhering to the principles of ALARA. CT DOSE: 994.92 mGy.cm FINDINGS: No pulmonary emboli are identified. There is no thoracic aortic dissection. The size of the heart is normal. There is no pericardial effusion. No enlarged axillary, mediastinal or hilar lymph nodes are present. No pneumothorax or pleural effusion is present. Central airways are patent. There is no consolidation to suggest pneumonia. There are no pulmonary nodules. Visualized portions of the upper abdomen demonstrate hepatic steatosis. IMPRESSION: 1. No pulmonary emboli identified. 2. No acute intrathoracic findings. ACT 112: Negative or not required by law. Electronically signed by: Serge Ghotra M.D. 09/15/2024 1:04 PM Medications Administered Current Inpatient Medications Acetaminophen (Acetaminophen 500 Mg Tab) 1,000 mg PO Q8H SOPHIA Stop: 10/15/24 19:59 Last Admin: 09/17/24 12:40 Dose: Not Given Aspirin (Aspirin 81 Mg Ectab) 81 mg PO DAILY SOPHIA Stop: 10/16/24 08:59 Last Admin: 09/17/24 08:10 Dose: 81 mg Atorvastatin Calcium (Atorvastatin 20 Mg Tab) 20 mg PO HS SOPHIA Stop: 10/15/24 20:59 Last Admin: 09/16/24 20:16 Dose: 20 mg Dextrose (Dextrose 50% 50 Ml Syringe) 25 - 50 ml IV UD PRN; Protocol PRN Reason: Hypoglycemia Protocol Stop: 10/15/24 17:59 Dicyclomine HCl (Dicyclomine Hcl 10 Mg Cap) 10 mg PO QID PRN PRN Reason: Diarrhea Stop: 10/15/24 18:40 Famotidine (Famotidine 20 Mg Tab) 20 mg PO HS SOPHIA Stop: 10/15/24 20:59 Last Admin: 09/16/24 20:16 Dose: 20 mg Glucagon (Glucagon For Inj 1 Mg Vial) 1 mg SQ UD PRN; Protocol PRN Reason: Hypoglycemia Protocol Stop: 10/15/24 17:59 Glucose (Glucose 40% Gel 15 Gm Tube) 15 - 30 gm PO UD PRN; Protocol PRN Reason: Hypoglycemia Protocol Stop: 10/15/24 17:59 Glucose (Glucose 10 Tab/Tube) 4 - 8 tab PO UD PRN; Protocol PRN Reason: Hypoglycemia Protocol Stop: 10/15/24 17:59 Heparin Sodium (Porcine) (Heparin Sod 5,000 Unit/0.5 Ml Vial) 5,000 units SQ Q8 SOPHIA Stop: 10/15/24 21:59 Last Admin: 09/17/24 05:48 Dose: 5,000 units Promethazine HCl (Phenergan) 12.5 mg in 50.5 mls @ 202 mls/hr IV Q6H PRN PRN Reason: Nausea And Vomiting Stop: 10/16/24 10:08 Insulin Aspart (Insulin Aspart Per Unit Charge) 0 units SC ACHS SOPHIA Stop: 10/15/24 20:59 Last Admin: 09/17/24 12:13 Dose: 18 units Insulin Glargine (Lantus Per Unit Charge) 50 units SC QAM [facility] Stop: 10/17/24 08:59 Last Admin: 09/17/24 08:14 Dose: 50 units Losartan Potassium (Losartan Potassium 50 Mg Tab) 50 mg PO BID [facility] Stop: 10/16/24 08:59 Last Admin: 09/17/24 08:09 Dose: 50 mg Metoprolol Succinate (Metoprolol Succ 50mg Ext Rel Tab) 50 mg PO BID [facility] Stop: 10/15/24 20:59 Last Admin: 09/17/24 08:09 Dose: 50 mg Miscellaneous (Carbohydrates For Hypoglycemia ) 15 - 30 gm PO UD PRN PRN Reason: Hypoglycemia Protocol Stop: 10/15/24 17:59 Miscellaneous Information (Pharmacy Glycemic Mgmt Consult) 1 each N/A UD PRN; Protocol PRN Reason: Consult Stop: 10/15/24 17:58 Pantoprazole Sodium (Pantoprazole 40 Mg Tab) 40 mg PO DAILYBB [facility] Stop: 10/16/24 06:29 Last Admin: 09/17/24 05:48 Dose: 40 mg Polyethylene Glycol (Polyethylene (Miralax) 17 Gm Pack) 17 gm PO DAILY PRN PRN Reason: Constipation Stop: 10/15/24 19:23 Spironolactone (Spironolactone 25 Mg Tab) 25 mg PO DAILY SOPHIA Stop: 10/16/24 08:59 Last Admin: 09/17/24 08:09 Dose: 25 mg Terazosin HCl (Terazosin Hcl 1 Mg Cap) 1 mg PO HS [facility] Stop: 10/15/24 20:59 Last Admin: 09/16/24 20:15 Dose: 1 mg Torsemide (Torsemide 20 Mg Tab) 20 mg PO DAILY SOPHIA Stop: 10/16/24 08:59 Last Admin: 09/17/24 08:09 Dose: 20 mg Tramadol HCl (Tramadol Hcl 50 Mg Tablet) 50 mg PO Q6H PRN PRN Reason: pain Stop: 10/16/24 10:14
--- NOTE | 2024-09-17 15:01 | Pharmacy Report ---
Pharmacy Glycemic Short Note 2 - Date of Service September 17, 2024 - Glycemic Short BSG Results (Last 24 hours): 09/16/24 09/16/24 09/17/24 16:15 20:05 07:12 POC Glucose 193 H 155 H 260 H 09/17/24 11:10 POC Glucose 253 H OUTPATIENT ANTIDIABETIC REGIMEN: * NovoLog 22 units SQ TID * Lantus 48 units BID * HbA1c 11.3% (09/16/24) increased from 8.8% (10/16/23) ASSESSMENT: 09/17 * Bry received 89 units of insulin yesterday (40 were basal) * Fasting BSG this AM elevated, likely due to bedtime basal scale incorrectly timed, gave slightly extra to help cover, BSGs trended down throughout the day yesterday, expect a similar response today * Tightened NovoLog due to elevated AM BSGs as well, no glycemic stressors noted at this time. 09/16 * Bry is a 48 YOM admitted with chest pain and a history of type 2 diabetes mellitus. Pharmacy has been consulted to assist with glycemic management while inpatient. * No glycemic stressors noted at this time * Basal/bolus insulin initiated at a weight based stress of 3, slightly below home dosage, suspect need for uptitration due to increase A1c, will continue to monitor PLAN FOR INPATIENT GLYCEMIC CONTROL: * Hold outpatient oral diabetes medications * Basal insulin * Lantus 50 units SQ QAM * Lantus 10-30 units SQ HS based on BSG (see eMAR for additional details) * Bolus insulin * NovoLog per scale ACHS or Q6hrs while NPO * Goal Range: Low 110 mg/dL - High 140 mg/dL * Correction Factor: 12 mg/dL/unit * Nutritional / Prandial insulin per carb ratio of 1 unit per 4 grams CHO consumed
[2024-09-17 15:26] VITALS: BP 161/92; RESP 20; TEMP 98.1; O2SAT 93
--- NOTE | 2024-09-17 15:54 | Discharge Summary ---
Discharge Summary Date of Service September 17, 2024 Principal Dx & Hospital Course #1 = Principal Diagnosis (1) Atypical chest pain: (2) Morbid obesity: (3) Sleep apnea: (4) Noncompliance with CPAP treatment: (5) Acute and chronic respiratory failure with hypercapnia: (6) Diabetes mellitus, type 2: (7) HTN (hypertension): (8) Depression: (9) Gastroparesis: (10) Intellectual disability: (11) COPD (chronic obstructive pulmonary disease): (12) Chronic diastolic heart failure: Plan Per admitting service notes with addendum: This is a 48-year-old male with PMH of type 2 diabetes, COPD, DAMION noncompliant with CPAP, morbid obesity, gastroparesis, history of BKA, history of noncardiac chest pain, diastolic heart failure, ongoing tobacco use disorder and other medical problems listed below who presents with chest pain. Atypical chest pain Hypertensive urgency HFpEF BP 189/102, HR 108 Noncompliant with meds 2/2 miscommunication - see hpi CP likely 2/2 uncontrolled HTN HS troponin 19->21.9-> 24 Given IV Labetalol 10mg in ED Resume losartan 50mg BID, Toprol 50mg BID (uptitrate back to 100mg BID as able), terazosin 1mg HS, torsemide 20mg daily Chest CTA with no pulmonary emboli identified. No acute intrathoracic findings Last 2D echo from Jun 2024 admission - technically limited study, EF 55-60%, mild concentric LVH, AV sclerosis mild Weight is downtrending, no overt volume overload on CTA chest - resume home diuretic as above Trend troponin, monitor on tele, resume cardiac meds as above Daily weights, repeat EKG in AM 09/16 Blood pressure now improved after initiation of patient's usual antihypertensives Still having persistent left upper chest wall pain radiating to the left shoulder and upper arm Troponins 21, 24, 23, 16 EKG no signs of acute ischemia or infarct Echocardiogram pending Chest pain sounds atypical Already on aspirin, atorvastatin, metoprolol Cardiology service consulted 09/17 Chest pain resolved Blood pressure at goal Discussed with cardiology service Recommend outpatient stress test, they will be arranging for this and will notify patient Patient and significant other strongly reminded that patient should be taking all medications daily, they verbalized understanding and agreement DAMION, noncompliant with CPAP Likely contributing to above Noted to be hypoxemic while sleeping during admission Needs outpatient sleep study- Patient states this is being arranged History of gastroparesis No longer experiencing abdominal pain Following with Nutrition, GI, hopes for bariatric surgery in future PRN Bentyl, resumed PPI and H2 ryan, no longer taking Carafate Uncontrolled DM II BSG 334 on admission A1c 10.0 in Feb, 2024. 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 obesity Noncompliant with inhalers at home on room air Intellectual disability as per records Ongoing tobacco abuse 34 pack years, still smoking 1 ppd Declined nicotine patch DVT Ppx: SQ heparin Code status: FULL PCP: Erik Dispo: d/c home ff up with PCP in 1 week ff up with Senior [employer] for outpatient stress test outpatient sleep study [facility] Clinic Notes For Next Care Provider Medication Changes From Visit None advised to resume previously prescribed medications Admission HPI Per Admitting Provider This is a 48-year-old male with PMH of type 2 diabetes, COPD, DAMION noncompliant with CPAP, morbid obesity, gastroparesis, history of BKA, history of noncardiac chest pain, diastolic heart failure, ongoing tobacco use disorder and other medical problems listed below who presents with chest pain. Patient reportedly stopped all home meds in July after conversation about gastroparesis p otentially being worsened by medication side effects. He states this conversation was with PCP, but PCPs most recent note on 08/18 indicates patient to continue all medications. In the past few weeks, patient notes he is continue to have irregular bowel movements similar to previous but has less abdominal pain. Is due to follow-up with weight management as well as GI. Over the past week or so patient describes constant pain in left shoulder extending to left chest wall. No exacerbating or alleviating symptoms. No associated shortness of breath or nausea. Has not taken aspirin, statin or any blood pressure pills in the past few weeks. Went to bed with some of this pain but it was worsened upon waking, prompting patient's presentation to ED. States he has history of arthritis and this pain feels similar to this although more severe. No weakness or paresthesias in right upper extremity. Last 2D echo from Jun 2024 admission - technically limited study, EF 55-60%, mild concentric LVH, AV sclerosis mild. Admission Exam Per Admitting Provider General Appearance: WD/WN, vitals as above, NAD, sitting up in bed, pleasant, morbidly obese Head: normocephalic, atraumatic Eyes: normal inspection, PERRL, conjunctivae normal, anicteric sclerae ENT: external ear and nose normal, oropharynx normal Neck: normal visual inspection Respiratory: normal respiratory effort, lungs diminished bilaterally, no wheeze, rales, rhonchi. No accessory muscle use Cardiovascular: tachycardic rate, regular rhythm, normal peripheral pulses, 1+ BLE edema Chest: normal inspection of chest Abdomen/GI: normal bowel sounds, soft, nontender, no hepatosplenomegaly Extremities/Musculoskeletal: S/p L BKA, no cyanosis or clubbing, extremities motor strength 5/5 Neurologic: PERRL, EOMI, accommodation nl, no face palsy, no dysarthria, CN's II-XI intact bilaterally and moves all extremities Psychiatric: A+Ox3, euthymic affect Skin: no rashes, normal color, warm/dry Discharge Exam General- oriented x 3, not in distress, speaks in sentences with no effort or accessory muscle use Eyes- anicteric Neck- no JVD Lungs- clear breath sounds bilaterally, no rales/wheezes Heart- normal rate, regular rhythm; no murmurs Abdomen- normal bowel sounds, nondistended, soft, nontender Extremities- no pretibial edema, no calf tenderness Neuro- alert, oriented x 3; no gross focal neurologic deficits Skin- warm & dry Updated Medication List Medication Instructions Recorded Confirmed Type insulin aspart U-100 100 unit/mL 22 unit subcut TID 06/09/19 09/15/24 History (3 mL) subcutaneous pen (Novolog FlexPen U-100 Insulin aspart) dicyclomine 10 mg capsule 10 mg PO QID PRN Diarrhea 05/01/20 09/15/24 History insulin glargine 100 unit/mL (3 48 unit subcut BID 09/06/22 09/15/24 History mL) subcutaneous pen (Lantus Solostar U-100 Insulin) aspirin 81 mg tablet,delayed 81 mg PO DAILY 30 days #30 tabs 09/17/24 Rx release atorvastatin 20 mg tablet 20 mg PO HS 30 days #30 tabs 09/17/24 Rx famotidine 20 mg tablet 20 mg PO HS 30 days #30 tabs 09/17/24 Rx losartan 50 mg tablet 50 mg PO BID 30 days #30 tabs 09/17/24 Rx metoprolol succinate 50 mg 50 mg PO BID 30 days #60 tabs 09/17/24 Rx tablet,extended release 24 hr omeprazole 40 mg capsule,delayed 40 mg PO DAILYBB 30 days #30 caps 09/17/24 Rx release spironolactone 25 mg tablet 25 mg PO DAILY 30 days #30 tabs 09/17/24 Rx terazosin 1 mg capsule 1 mg PO HS 30 days #30 caps 09/17/24 Rx torsemide 10 mg tablet 20 mg (2 x 10 mg) PO DAILY 30 days 09/17/24 Rx #60 tabs Hospital Stay Data Consultations 09/15/24 17:38 ED Decision to Admit Stat 09/16/24 10:08 Consult Cardiology Routine Diagnostic Imagining Performed 09/15/24 12:31 CT angio chest PE protocol Stat CT ANGIOGRAPHY OF THE CHEST, PULMONARY EMBOLUS PROTOCOL CLINICAL HISTORY: Chest pain. Evaluate for pulmonary embolus. COMPARISON STUDY: Chest radiograph performed earlier today. Chest CT July 13, 2024. TECHNIQUE: Following IV administration of 120 mL of Optiray, helical axial images of the chest were obtained utilizing the pulmonary embolus protocol. Maximal intensity projections and sagittal and coronal reformats were viewed on an independent 3D workstation. IV contrast was administered without complication. Automated exposure control was utilized for the study. A dose lowering technique was utilized adhering to the principles of ALARA. CT DOSE: 994.92 mGy.cm FINDINGS: No pulmonary emboli are identified. There is no thoracic aortic dissection. The size of the heart is normal. There is no pericardial effusion. No enlarged axillary, mediastinal or hilar lymph nodes are present. No pneumothorax or pleural effusion is present. Central airways are patent. There is no consolidation to suggest pneumonia. There are no pulmonary nodules. Visualized portions of the upper abdomen demonstrate hepatic steatosis. IMPRESSION: 1. No pulmonary emboli identified. 2. No acute intrathoracic findings. ACT 112: Negative or not required by law. Pending Results Patient Have Any Pending Studies at Discharge: No Discharge Instructions Given to Patient (Per Discharging Provider) PLEASE REFER TO YOUR NEW MEDICATION LIST AND FOLLOW INSTRUCTIONS CAREFULLY. Please take all your medications daily. PLEASE CALL YOUR PRIMARY CARE PHYSICIAN OR RETURN TO THE ER IF WITH WORSENING OF SYMPTOMS, INCLUDING Chest pain, shortness of breath, palpitations, dizziness, weakness, etc. FOLLOW UP WITH PRIMARY CARE PHYSICIAN In 1 week. The clinic will be calling you soon for the appointment. You also need to have a stress test as an outpatient. The clinic will be calling you soon for that appointment as well. Follow-up with [facility] tomorrow as scheduled Total Time Total Time Spent Total Time Spent (In Minutes): 50 minutes
[2024-09-17 15:57] VITALS: PULSE 94
== END 2024-09-17 17:38 | disposition home or self-care (01) | DRG 305 ==
LOC: 2E 10:51 → ED 10:51 → SUATTDRO 17:57 → 2E 18:37

== ENCOUNTER 2024-09-30 14:00 | Observation (INO) ==
--- NOTE | 2024-09-30 14:15 | Emergency Department Note ---
Impression & Plan Hyperglycemia due to type 2 diabetes mellitus, Generalized pain, Chest pain, Diarrhea ED Provider Note NAME: ROBERT BARAJAS Jr AGE: 48 SEX: M : 1975 ARRIVES VIA: Walk-In INFORMANT: Patient ED PROVIDER(S): Sohail Leon MD CHIEF COMPLAINT: chest pain, edema, diarrhea PLAN: Disposition: Admit MEDICAL DECISION MAKING: The patient is a pleasant 48y/o gentleman with a past medical history of y/o gentleman chronic diastolic heart failure with EF of 55-60% in 2023, Type 2 diabetes, gastroparesis, IBS, GERD/esophagitis, noncardiac chest pain, DAMION, left BKA, h/o PE/DVT s/p anticoagulation, NAFLD, morbid obesity, intellectual disability, tobacco abuse, h/o of medical noncompliance who presents to emergency department via walk-in for evaluation of numerous complaints including swelling of his right foot as well as facial swelling and pain in his left shoulder and chest as well as abdominal pain and cramping with watery brown diarrhea all of which began last night. Patient had a recent echocardiogram that was unremarkable during recent admission to this facility from 09/16-09/17 for hypertensive urgency. He reports he has a scheduled stress test 10/09 with his [facility] cardiology office. He reports taking all his medications as prescribed. He reports his Dexcom was reading "critically low" and so he had a large piece of cake prior to coming to the emergency department. On evaluation patient with stress, afebrile stable vital signs. He appears euvolemic. Wt is 157.5kg down from 160-168kg in July of this year. Abdomen is nontender. He has no significant edema of his lower extremities/right foot and no facial time. EKG without overt acute ischemia. CXR negative for acute cardiopulmonary process per my personal preliminary review/interpretation. WBC and platelets within normal limits. H/H similar to prior. Chemistry without metabolic acidosis. Glucose was 398 in the setting of the patient's report of having "critically low glucose on his Dexcom" and so he ate a piece of cake prior to coming to the emergency department. CT of the ab pelvis was negative for acute abnormalities. Hepatic steatosis is described. Patient did urinate after CT and showed no residual on postvoid on bladder scan. Respiratory Biofire negative. Initial high-sensitivity troponin 15.2 within normal limits with delta 4-hour HS troponin for 15.8, again within normal limits. BNP wnl. Patient continued to complain of generalized body pain after IV APAP. Repeat BSG still in the 300s though he did have 2 turkey sandwiches and attempt to slowly have bowel movement to send for stool studies but was unsuccessful. The patient continued to complain of generalized pain. Thus given patient's uncontrolled diabetes patient was referred to hospital service for further management. [facility] for [facility]. Further management per admitting team. Triage Nursing notes reviewed and agree them. Prior/external medical records reviewed Vital Signs: reviewed Differential diagnosis: Gastroenteritis, food borne illness, infections, appendicitis, diverticulitis, inflammatory bowel disease, obstruction, GI bleed, biliary pathology, volvulus, as well as other pathologies. ER treatment provided: See below. Diagnostics interpreted by me: ECG: Sinus tachycardia, 106 bpm, no ectopy, incomplete RBBB, no overt ST elevation or depression. QTC 470, QRS 102. Cardiac Monitoring: An order for continuous cardiac monitoring was placed and demonstrated Sinus tachycardia, 106 bpm, no ectopy. Laboratory studies: See below Imaging studies: See below Consultation(s): [facility] will [facility] the patient for admission. HPI: The patient is a pleasant 48y/o gentleman with a past medical history of y/o gentleman chronic diastolic heart failure with EF of 55-60% in 2023, Type 2 diabetes, gastroparesis, IBS, GERD/esophagitis, noncardiac chest pain, DAMION, left BKA, h/o PE/DVT s/p anticoagulation, NAFLD, morbid obesity, intellectual disability, tobacco abuse, h/o of medical noncompliance who presents to emergency department via walk-in for evaluation of numerous complaints including swelling of his right foot as well as facial swelling and pain in his left shoulder and chest as well as abdominal pain and cramping with watery brown diarrhea all of which began last night. Patient had a recent echocardiogram that was unremarkable during recent admission to this facility from 09/16-09/17 for hypertensive urgency. He reports he has a scheduled stress test 10/09 with his [facility] cardiology office. He reports taking all his medications as prescribed. He reports his Dexcom was reading "critically low" and so he had a large piece of cake prior to coming to the emergency department. ROS: See above HPI for pertinent positives & negatives. A total of 10 systems reviewed and were otherwise negative. VITALS:See Below PHYSICAL EXAMINATION: GENERAL: Awake, alert, in no distress, BMI 43.4. HENT: Normocephalic, atraumatic. Oropharynx unremarkable. EYES: Normal conjunctiva. Sclera non-icteric. NECK: Supple. No nuchal rigidity. FROM. No JVD. RESPIRATORY: Clear to auscultation. CARDIAC: Regular rate, normal rhythm. Extremities warm and well perfused. Pulses equal. ABDOMEN: Soft, non-distended. No tenderness to palpation. No rebound or guarding. No masses. MUSCULOSKELETAL: Chest examination reveals no tenderness. The back is symmetrical on inspection without obvious abnormality. There is no CVA tenderness to palpation. No joint edema. LOWER EXTREMITIES: Left BKA and Right LE are equal size bilaterally and non- tender. No edema. No discoloration. NEURO: Normal sensorium. No sensory or motor deficits noted. SKIN: No rash or jaundice noted. Sohail Leon MD Past Med/Surg History Problem List (Updated 09/30/24 @ 21:51 by Sohail Leon MD) Diarrhea (Acute) Chest pain (Acute) Generalized pain (Acute) Hyperglycemia due to type 2 diabetes mellitus (Acute) Chest pain (Acute) Chest pain Atypical chest pain Noncompliance with CPAP treatment Hypomagnesemia (Acute) Elevated lactic acid level (Acute) PASHA (acute kidney injury) (Acute) Abdominal pain (Acute) Acute and chronic respiratory failure with hypercapnia Shortness of breath (Acute) 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 Garcia Morbid obesity (Acute) Chronic respiratory failure with hypercapnia Diabetic peripheral neuropathy associated with type 2 diabetes mellitus Loss of protective sensation of skin of foot Epigastric abdominal pain Encounter for pre-operative examination Colon polyp Medical History Chronic diastolic heart failure Volume overload Arthritis Low magnesium level History of RSV infection & flu a few months ago. Tachycardia chronic high heart rate - unknown etiology - a few months ago increased dose of metoprolol. Rhinovirus dx May 23 [facility] & another illness dx - ? name of /antibiotic and inhalers for. feeling better: only symptom : sore throat. COPD (chronic obstructive pulmonary disease) ? dx of Peripheral neuropathy Diabetes mellitus, type 2 Hypertension Tobacco use Restrictive lung disease Elevated liver function tests History of DVT (deep vein thrombosis) "years ago">no known cause Tussive syncope "occurred only one time, no recent issues" Esophagitis Osteoarthritis Hx of pancreatitis resolved GERD (gastroesophageal reflux disease) Cardiac murmur A CHILD Erectile dysfunction MRSA (methicillin resistant Staphylococcus aureus) carrier over 2 yrs ago>"not sure where it was" Intellectual disability Obstructive sleep apnea cpap Obesity IBS (irritable bowel syndrome) History of ventricular tachycardia "nonsustained" Surgical History History of appendectomy 02/10/2023 History of reduction of nasal fracture 09/25/21-Dr. Garcia Status post incision and drainage LLE History of shoulder surgery right-2019 H/O foot surgery LEFT-2018 History of arthroscopy LEFT [id number] History of esophagogastroduodenoscopy (EGD) History of colonoscopy with most recent attempt: failed prep. Told would need a 2 day prep prior to colonoscopy in Sep 2023. History of tooth extraction History of tonsillectomy and adenoidectomy 1979 Family History Brother Family history of diabetes mellitus Environmental allergies Asthma Mother Family history of diabetes mellitus Hypertension Environmental allergies Father Family history of diabetes mellitus Hypertension Heart disease Grandfather (Paternal) Lung cancer smoker Aunt Bleeding disorder Other No family history of adverse response to anesthesia Social History Smoking Status: Current every day smoker Tobacco Type: Cigarettes Age Started Using Tobacco: 14; Cigarettes Per Day: 20; Second Hand Exposure: No; Do You Dip or Chew Tobacco: No; Hx Alcohol Use: No Hx Substance Use: No Preferred Language: Macedonian Communication Ability: Effective Explosion Welder Required: No Beliefs That Will Affect Care: None marital status: / marital status details: single at this time Current Living Situation: Parent and Family Current Living Situation Comment: lives with mom current occupational status: employed 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 Cephalosporins Allergy Unknown Unknown Verified 09/30/24 18:34 empagliflozin AdvReac Unknown put me Verified 09/30/24 18:34 [From [employer]] into ketoacidosis? NSAIDS (Non-Steroidal AdvReac Unknown use with Verified 09/30/24 18:34 Anti-Inflamma caution : hx esophagus damage Home Meds Home Medications Medication Instructions Recorded Confirmed insulin aspart U-100 100 unit/mL 22 unit subcut TID 06/09/19 09/30/24 (3 mL) subcutaneous pen (Novolog FlexPen U-100 Insulin aspart) dicyclomine 10 mg capsule 10 mg PO QID PRN Diarrhea 05/01/20 09/30/24 insulin glargine 100 unit/mL (3 48 unit subcut BID 09/06/22 09/30/24 mL) subcutaneous pen (Lantus Solostar U-100 Insulin) metoprolol succinate 100 mg 100 mg PO BID 09/30/24 09/30/24 tablet,extended release 24 hr Previous Rx's Medication Instructions Recorded aspirin 81 mg tablet,delayed 81 mg PO DAILY 30 days #30 tabs 09/17/24 release atorvastatin 20 mg tablet 20 mg PO HS 30 days #30 tabs 09/17/24 famotidine 20 mg tablet 20 mg PO HS 30 days #30 tabs 09/17/24 losartan 50 mg tablet 50 mg PO BID 30 days #30 tabs 09/17/24 omeprazole 40 mg capsule,delayed 40 mg PO DAILYBB 30 days #30 caps 09/17/24 release spironolactone 25 mg tablet 25 mg PO DAILY 30 days #30 tabs 09/17/24 terazosin 1 mg capsule 1 mg PO HS 30 days #30 caps 09/17/24 torsemide 10 mg tablet 20 mg (2 x 10 mg) PO DAILY 30 days 09/17/24 #60 tabs Results & Data (ED) Vital Signs Vital Signs - 24 hr 09/30/24 14:02 09/30/24 14:45 09/30/24 15:33 Temperature 36.5 C Temperature Source Temporal Artery Scan Pulse Rate 107 H 105 H Pulse Rate [Right Brachial] Pulse Rhythm [Right Brachial] Pulse Strength [Right Brachial] Respiratory Rate 18 Respiratory Effort / Characteristics Non-Labored Spontaneous Respiratory Depth Normal Respiratory Pattern Blood Pressure 189/83 H Blood Pressure [Right Arm] Blood Pressure Mean 118 Blood Pressure Mean [Right Arm] Blood Pressure Position Sitting Blood Pressure Position [Right Arm] Pulse Oximetry 96 92 Oxygen Delivery Method Room Air Room Air Sepsis Recent Fever Within 48 Hours No Sepsis New/Unexplained Change in Mental Status N/A Sepsis Action Taken by Nursing No Action Required 09/30/24 16:00 09/30/24 18:00 09/30/24 19:10 Temperature Temperature Source Pulse Rate Pulse Rate [Right Brachial] 104 H 105 H 101 H Pulse Rhythm [Right Brachial] Regular Regular Pulse Strength [Right Brachial] Normal Normal Respiratory Rate 22 16 17 Respiratory Effort / Characteristics Non-Labored Non-Labored Respiratory Depth Normal Normal Respiratory Pattern Regular Regular Blood Pressure Blood Pressure [Right Arm] 182/91 H 118/68 135/86 Blood Pressure Mean Blood Pressure Mean [Right Arm] 121 84 102 Blood Pressure Position Blood Pressure Position [Right Arm] Lying Lying Pulse Oximetry 94 98 Oxygen Delivery Method Room Air Room Air Sepsis Recent Fever Within 48 Hours Sepsis New/Unexplained Change in Mental Status Sepsis Action Taken by Nursing 09/30/24 19:15 09/30/24 20:43 Temperature Temperature Source Pulse Rate 108 H Pulse Rate [Right Brachial] 103 H Pulse Rhythm [Right Brachial] Pulse Strength [Right Brachial] Respiratory Rate 18 Respiratory Effort / Characteristics Respiratory Depth Respiratory Pattern Blood Pressure Blood Pressure [Right Arm] 152/78 H Blood Pressure Mean Blood Pressure Mean [Right Arm] 102 Blood Pressure Position Blood Pressure Position [Right Arm] Pulse Oximetry 97 Oxygen Delivery Method Sepsis Recent Fever Within 48 Hours Sepsis New/Unexplained Change in Mental Status Sepsis Action Taken by Nursing Laboratory Data Attestation: I reviewed the patient's lab results. 09/30/24 15:21 09/30/24 14:37 Lab Results 09/30/24 09/30/24 09/30/24 Range/Units 14:37 15:12 15:21 WBC Cancelled 9.17 RBC Cancelled 4.66 L Hgb Cancelled 12.3 L POC Hgb (14.0-18.0) g/dl Hct Cancelled 38.7 L POC Hct (42-52) % MCV Cancelled 83.0 MCH Cancelled 26.4 MCHC Cancelled 31.8 L RDW Std Deviation Cancelled 42.3 RDW Coeff of Abiodun Cancelled 14.2 Plt Count Cancelled 254 MPV Cancelled 9.7 Immature Gran % (Auto) Cancelled 1.6 Neut % (Auto) Cancelled 64.2 Lymph % (Auto) Cancelled 20.6 Orange % (Auto) Cancelled 8.4 Eos % (Auto) Cancelled 4.3 Baso % (Auto) Cancelled 0.9 Neut # (Auto) Cancelled 5.89 Lymph # (Auto) Cancelled 1.89 Orange # (Auto) Cancelled 0.77 H Eos # (Auto) Cancelled 0.39 Baso # (Auto) Cancelled 0.08 Immature Gran # (Auto) Cancelled 0.15 Absolute Nucleated RBC Cancelled Nucleated RBC % (auto) Cancelled Neutrophils % (Manual) Cancelled Band Neutrophils % Cancelled Lymphocytes % (Manual) Cancelled Prolymphocyte % Cancelled Reactive Lymphs % (Man) Cancelled Monocytes % (Manual) Cancelled Eosinophils % (Manual) Cancelled Basophils % (Manual) Cancelled Metamyelocytes % (Man) Cancelled Myelocytes % (Man) Cancelled Promyelocytes % (Man) Cancelled Blast Cells % (Manual) Cancelled Plasma Cell % (Manual) Cancelled Other Cells % Cancelled Nucleated RBC % Cancelled Neutrophils # (Manual) Cancelled Band Neutrophils # Cancelled Total Absolute Neuts Cancelled Lymphocytes # (Manual) Cancelled Prolymphocyte # Cancelled Reactive Lymphs # Cancelled Total Abs Lymphocytes Cancelled Monocytes # (Manual) Cancelled Eosinophils # (Manual) Cancelled Basophils # (Manual) Cancelled Metamyelocytes # (Man) Cancelled Myelocytes # (Manual) Cancelled Promyelocytes # (Man) Cancelled Blast Cells # (Man) Cancelled Plasma Cell # (Manual) Cancelled Other Cells # Cancelled Nucleated RBCs # (Man) Cancelled Hypersegmented Neuts Cancelled Hyposegmented Neuts Cancelled Hypogranular Neuts Cancelled Large Granular Lymphs Cancelled # Lrg Granular Lymphs Cancelled Hairy Cells Cancelled Smudge Cells Cancelled Toxic Granulation Cancelled Toxic Vacuolation Cancelled Dohle Bodies Cancelled Sergio Rods Cancelled Platelet Estimate Cancelled Hypogranular Platelets Cancelled Giant Platelets Cancelled Platelet Satelliting Cancelled RBC Morphology Cancelled Polychromasia Cancelled Hypochromasia Cancelled Poikilocytosis Cancelled Basophilic Stippling Cancelled Anisocytosis Cancelled Microcytosis Cancelled Macrocytosis Cancelled Spherocytes Cancelled Pappenheimer Bodies Cancelled Sickle Cells Cancelled Target Cells Cancelled Tear Drop Cells Cancelled Ovalocytes Cancelled Stomatocytes Cancelled Roberts[place] Bodies Cancelled Echinocytes Cancelled Acanthocytes (Spur) Cancelled Rouleaux Cancelled RBC Agglutinates Cancelled Schistocytes Cancelled Sezary Cell Cancelled PT 10.3 (9.0-12.0) Seconds INR 0.9 (0.9-1.1) POC Sodium (135-144) mmol/L Sodium 135 L (136-145) mmol/L POC Potassium (3.3-5.0) mmol/L Potassium 4.1 (3.5-5.1) mmol/L POC Chloride (101-112) mmol/L Chloride 101 (98-107) mmol/L Carbon Dioxide 25 (21-32) mmol/L POC Total CO2 (24-31) mmol/L Anion Gap 9 (3-11) POC Anion Gap (16-25) mmol/L POC BUN (7-18) mg/dl BUN 35 H (6-23) mg/dl Creatinine 0.92 (0.6-1.4) mg/dl POC Creatinine (0.6-1.3) mg/dl Est Cr Clr Drug Dosing 154.5 ml/min eGFR 101.34 BUN/Creatinine Ratio 38.0 H (10-20) Glucose 398 H* (70-99(Fasting)) mg/dl POC Glucose (other) (70-99) mg/dl Calcium 9.3 (8.6-10.3) mg/dl POC Ioniz Calcium Boubacar (1.12-1.32) mmol/l Magnesium 1.7 (1.7-2.4) mg/dl Total Bilirubin 0.3 (0.2-1.0) mg/dl AST 18 (13-39) U/L ALT 23 (7-52) U/L Alkaline Phosphatase 68 (34-104) U/L Troponin I High Sens 15.2 (0-20) pg/ml B-Natriuretic Peptide 47 (0-100) pg/ml Total Protein 6.7 (6.0-8.3) gm/dl Albumin 3.7 (3.4-5.0) gm/dl Globulin 3.0 (2.5-4.0) gm/dl Albumin/Globulin Ratio 1.2 (0.9-2) Lipase 26 (11-82) U/L Urine Color Urine Appearance (Clear) Urine pH (4.5-7.5) Ur Specific Haskell (1.000-1.030) Urine Protein (Negative) Urine Glucose (UA) (Negative) Urine Ketones (Negative) Urine Blood (Negative) Urine Nitrite (Negative) Urine Bilirubin (Negative) Urine Urobilinogen (Negative) Ur Leukocyte Esterase (Negative) Urine WBC (Auto) (0-5) /hpf Urine RBC (Auto) (0-2) /hpf U Hyaline Cast (Auto) (0-2) /lpf U Epithel Cells (Auto) (0-2) /hpf Urine Bacteria (Auto) (None Seen) Adenovirus (PCR) Not Detected (NotDetected) B. pertussis DNA (PCR) Not Detected (NotDetected) B.parapertussis DNA PCR Not Detected (NotDetected) C. pneumoniae DNA (PCR) Not Detected (NotDetected) Coronavirus OC43 (PCR) Not Detected (NotDetected) Coronavirus HKU1 (PCR) Not Detected (NotDetected) Coronavirus 229E (PCR) Not Detected (NotDetected) SARS-CoV-2 (PCR) Not Detected (NotDetected) Coronavirus NL63 (PCR) Not Detected (NotDetected) Human Metapneumovir PCR Not Detected (NotDetected) Influenza Type A (PCR) Not Detected (NotDetected) Influenza Type B (PCR) Not Detected (NotDetected) M. pneumoniae (PCR) Not Detected (NotDetected) Parainfluenza 1 (PCR) Not Detected (NotDetected) Parainfluenza 2 (PCR) Not Detected (NotDetected) Parainfluenza 3 (PCR) Not Detected (NotDetected) Parainfluenza 4 (PCR) Not Detected (NotDetected) RSV (PCR) Not Detected (NotDetected) Entero/Rhino (PCR) Not Detected (NotDetected) Blood Parasites ID Cancelled 09/30/24 09/30/24 09/30/24 Range/Units 15:24 16:21 18:15 WBC RBC Hgb POC Hgb 13.3 L (14.0-18.0) g/dl Hct POC Hct 39 L (42-52) % MCV MCH MCHC RDW Std Deviation RDW Coeff of Abiodun Plt Count MPV Immature Gran % (Auto) Neut % (Auto) Lymph % (Auto) Orange % (Auto) Eos % (Auto) Baso % (Auto) Neut # (Auto) Lymph # (Auto) Orange # (Auto) Eos # (Auto) Baso # (Auto) Immature Gran # (Auto) Absolute Nucleated RBC Nucleated RBC % (auto) Neutrophils % (Manual) Band Neutrophils % Lymphocytes % (Manual) Prolymphocyte % Reactive Lymphs % (Man) Monocytes % (Manual) Eosinophils % (Manual) Basophils % (Manual) Metamyelocytes % (Man) Myelocytes % (Man) Promyelocytes % (Man) Blast Cells % (Manual) Plasma Cell % (Manual) Other Cells % Nucleated RBC % Neutrophils # (Manual) Band Neutrophils # Total Absolute Neuts Lymphocytes # (Manual) Prolymphocyte # Reactive Lymphs # Total Abs Lymphocytes Monocytes # (Manual) Eosinophils # (Manual) Basophils # (Manual) Metamyelocytes # (Man) Myelocytes # (Manual) Promyelocytes # (Man) Blast Cells # (Man) Plasma Cell # (Manual) Other Cells # Nucleated RBCs # (Man) Hypersegmented Neuts Hyposegmented Neuts Hypogranular Neuts Large Granular Lymphs # Lrg Granular Lymphs Hairy Cells Smudge Cells Toxic Granulation Toxic Vacuolation Dohle Bodies Sergio Rods Platelet Estimate Hypogranular Platelets Giant Platelets Platelet Satelliting RBC Morphology Polychromasia Hypochromasia Poikilocytosis Basophilic Stippling Anisocytosis Microcytosis Macrocytosis Spherocytes Pappenheimer Bodies Sickle Cells Target Cells Tear Drop Cells Ovalocytes Stomatocytes Roberts-[place] Bodies Echinocytes Acanthocytes (Spur) Rouleaux RBC Agglutinates Schistocytes Sezary Cell PT (9.0-12.0) Seconds INR (0.9-1.1) POC Sodium 137 (135-144) mmol/L Sodium (136-145) mmol/L POC Potassium 4.1 (3.3-5.0) mmol/L Potassium (3.5-5.1) mmol/L POC Chloride 101 (101-112) mmol/L Chloride (98-107) mmol/L Carbon Dioxide (21-32) mmol/L POC Total CO2 25 (24-31) mmol/L Anion Gap (3-11) POC Anion Gap 16.0 (16-25) mmol/L POC BUN 32 H (7-18) mg/dl BUN (6-23) mg/dl Creatinine (0.6-1.4) mg/dl POC Creatinine 0.9 (0.6-1.3) mg/dl Est Cr Clr Drug Dosing ml/min eGFR BUN/Creatinine Ratio (10-20) Glucose (70-99(Fasting)) mg/dl POC Glucose (other) 366 H* (70-99) mg/dl Calcium (8.6-10.3) mg/dl POC Ioniz Calcium Boubacar 1.20 (1.12-1.32) mmol/l Magnesium (1.7-2.4) mg/dl Total Bilirubin (0.2-1.0) mg/dl AST (13-39) U/L ALT (7-52) U/L Alkaline Phosphatase (34-104) U/L Troponin I High Sens 15.8 (0-20) pg/ml B-Natriuretic Peptide (0-100) pg/ml Total Protein (6.0-8.3) gm/dl Albumin (3.4-5.0) gm/dl Globulin (2.5-4.0) gm/dl Albumin/Globulin Ratio (0.9-2) Lipase (11-82) U/L Urine Color Yellow Urine Appearance Clear (Clear) Urine pH 5.5 (4.5-7.5) Ur Specific Haskell 1.025 (1.000-1.030) Urine Protein 2+ H (Negative) Urine Glucose (UA) 3+ H (Negative) Urine Ketones Negative (Negative) Urine Blood Negative (Negative) Urine Nitrite Negative (Negative) Urine Bilirubin Negative (Negative) Urine Urobilinogen Negative (Negative) Ur Leukocyte Esterase Negative (Negative) Urine WBC (Auto) 0-5 (0-5) /hpf Urine RBC (Auto) 0-2 (0-2) /hpf U Hyaline Cast (Auto) 0-2 (0-2) /lpf U Epithel Cells (Auto) 0-2 (0-2) /hpf Urine Bacteria (Auto) None Seen (None Seen) Adenovirus (PCR) (NotDetected) B. pertussis DNA (PCR) (NotDetected) B.parapertussis DNA PCR (NotDetected) C. pneumoniae DNA (PCR) (NotDetected) Coronavirus OC43 (PCR) (NotDetected) Coronavirus HKU1 (PCR) (NotDetected) Coronavirus 229E (PCR) (NotDetected) SARS-CoV-2 (PCR) (NotDetected) Coronavirus NL63 (PCR) (NotDetected) Human Metapneumovir PCR (NotDetected) Influenza Type A (PCR) (NotDetected) Influenza Type B (PCR) (NotDetected) M. pneumoniae (PCR) (NotDetected) Parainfluenza 1 (PCR) (NotDetected) Parainfluenza 2 (PCR) (NotDetected) Parainfluenza 3 (PCR) (NotDetected) Parainfluenza 4 (PCR) (NotDetected) RSV (PCR) (NotDetected) Entero/Rhino (PCR) (NotDetected) Blood Parasites ID Administered Medications Magnesium Sulfate/Dextrose (Magnesium Sulfate / D5w) 1 gm in 100 mls @ 50 mls/hr IV ONE ONE Stop: 09/30/24 22:34 Last Admin: 09/30/24 20:48 Dose: 50 mls/hr Documented By: HALEYW Albumin Human (Albumin 25%) 12.5 gm in 50 mls @ 50 mls/hr IV ONE ONE Stop: 09/30/24 21:35 Last Admin: 09/30/24 21:08 Dose: 50 mls/hr Documented By: DEVOND Discontinued Medications Acetaminophen (Ofirmev) 1,000 mg in 100 mls @ 400 mls/hr IV NOW STA Stop: 09/30/24 16:28 Last Infusion: 09/30/24 17:07 Dose: Infused Documented By: Admin: 09/30/24 16:39 Dose: 400 mls/hr Documented By: MITCH Ioversol (Optiray 320 100ml) 94 ml IV ONCE ONE Stop: 09/30/24 15:54 Last Admin: 09/30/24 15:53 Dose: 94 ml Documented By: SINGH Metoprolol Succinate (Metoprolol Succ 50mg Ext Rel Tab) 100 mg PO NOW STA Stop: 09/30/24 20:41 Last Admin: 09/30/24 21:10 Dose: 100 mg Documented By: EDD Nitroglycerin (Nitroglycerin Sl 0.4 Mg/Tab Tab) 0.4 mg SL NOW STA Stop: 09/30/24 21:23 Last Admin: 09/30/24 21:34 Dose: 0.4 mg Documented By: EDD Imaging Data Radiologist's Impression: Abdomen/Pelvis CT 09/30/24 14:46 EXAM: CT Abdomen and Pelvis With Intravenous Contrast INDICATION: Diarrhea. TECHNIQUE: Axial computed tomography images of the abdomen and pelvis with intravenous contrast. Sagittal and coronal reformatted images were created and reviewed. This CT exam was performed using one or more of the following dose reduction techniques: automated exposure control, adjustment of the mA and/or kV according to patient size, and/or use of iterative reconstruction technique. CONTRAST: 94ml of Optiray 320 was administered intravenously. COMPARISON: No relevant prior studies available. FINDINGS: Limitations: None. Lung bases: No abnormality noted. Pleural space: No visualized pleural effusion or pneumothorax. Heart: No abnormality noted. Mediastinum: No abnormality noted. ABDOMEN: Liver: Normal size and contour. Hypodense typical of steatosis. No mass or ductal dilation. Gallbladder and bile ducts: No calcified stones or surrounding fluid. Pancreas: Homogeneous enhancement. No mass, inflammation or ductal dilation. Spleen: No significant abnormality noted. Adrenals: No significant abnormality noted. Kidneys and ureters: Normal enhancement. No mass, hydronephrosis or visualized stone. Stomach and bowel: No distension or mucosal thickening. No inflammation noted. PELVIS: Appendix: Appendectomy. Bladder: Mildly distended urinary bladder without stones or gas. Reproductive: No abnormalities noted. ABDOMEN and PELVIS: Intraperitoneal space: No free air. No significant fluid collection. Bones/joints: No acute changes. Soft tissues: There are small bilateral fat containing inguinal hernias. Vasculature: There is minimal atherosclerotic calcification at the origin of the superior mesenteric artery and in the distal abdominal aorta and left common iliac artery. Internal iliac artery atherosclerotic calcification noted. There is moderate coronary calcification. No aneurysm. No visible dissection. Lymph nodes: No pathologically enlarged lymph nodes. IMPRESSION: 1. No intestinal obstruction or inflammation. 2. Mildly distended urinary bladder. 3. Hepatic steatosis. ACT 112: Negative or not required by law. Electronically signed by Carol Salcido 09-30-2024 4:04 PM Chest X-Ray 09/30/24 16:12 EXAM: Radiograph of the Chest 1 View INDICATION: Abdominal pain. TECHNIQUE: Frontal view of the chest. COMPARISON: 09/15/2024 FINDINGS: Lungs and pleural spaces: Stable prominent interstitial markings which appear chronic. No consolidation or pulmonary edema. No pleural effusion or pneumothorax. Heart: Stable cardiomegaly. Mediastinum: Normal contour. Bones/joints: No fracture, erosion or dislocation. Soft tissues: No abnormality noted. No radiopaque foreign body noted. Upper abdomen: No free air subjacent to either diaphragm. IMPRESSION: Stable chronic changes. No acute disease. ACT 112: Negative or not required by law. Electronically signed by Carol Salcido 09-30-2024 4:51 PM Discharge Plan Visit Data Chief Complaint: Swelling/Edema to Extremity Stated Complaint: RETURNING FLUID IN R FOOT, PUFFY FACE, L ARM PAIN ED Provider: Sohail Leon Discharge Problem: Hyperglycemia due to type 2 diabetes mellitus, Generalized pain, Chest pain, Diarrhea Forms Stand Alone Forms: [facility] [email or web address] Prescriptions Prescriptions: No Action insulin aspart U-100 [Novolog FlexPen U-100 Insulin] 100 unit/mL (3 mL) insulin pen 22 unit subcut TID Patient Comments: 16 all the time Rx Instructions: w/meals dicyclomine 10 mg capsule 10 mg PO QID PRN (Reason: Diarrhea) insulin glargine [Lantus Solostar U-100 Insulin] 100 unit/mL (3 mL) insulin pen 48 unit subcut BID Rx Instructions: TAKES 40 UNITS QAM, THEN 40 UNITS QHS. losartan 50 mg tablet 50 mg PO BID 30 Days Qty: 30 1RF atorvastatin 20 mg tablet 20 mg PO HS 30 Days Qty: 30 1RF torsemide 10 mg tablet 20 mg PO DAILY 30 Days Qty: 60 1RF terazosin 1 mg capsule 1 mg PO HS 30 Days Qty: 30 1RF omeprazole 40 mg capsule,delayed release(DR/EC) 40 mg PO DAILYBB 30 Days Qty: 30 1RF aspirin 81 mg tablet,delayed release (DR/EC) 81 mg PO DAILY 30 Days Qty: 30 1RF spironolactone 25 mg tablet 25 mg PO DAILY 30 Days Qty: 30 1RF famotidine 20 mg tablet 20 mg PO HS 30 Days Qty: 30 1RF metoprolol succinate 100 mg tablet extended release 24 hr 100 mg PO BID Referrals Referrals: eVlasquez Valencia MD [Primary Care Provider] - Discharge Problem: Hyperglycemia due to type 2 diabetes mellitus Qualifiers: Diabetes mellitus chcf insulin use: unspecified [facility]cf insulin use status Qualified Code(s): E11.65 - Type 2 diabetes mellitus with hyperglycemia Chest pain Qualifiers: Chest pain type: unspecified Qualified Code(s): R07.9 - Chest pain, unspecified Diarrhea Qualifiers: Diarrhea type: unspecified type Qualified Code(s): R19.7 - Diarrhea, unspecified
[2024-09-30 15:23] LABS: Albumin Globulin Ratio 1.2 (0.9-2); Albumin Level 3.7 gm/dl (3.4-5.0); Bilirubin,Total 0.3 mg/dl (0.2-1.0); Calcium 9.3 mg/dl (8.6-10.3); Creatinine Clr Calc Pharmacy 154.5 ml/min; Magnesium 1.7 mg/dl (1.7-2.4); Potassium 4.1 mmol/L (3.5-5.1); Total Protein 6.7 gm/dl (6.0-8.3)
[2024-09-30 15:24] LABS: INR 0.9 (0.9-1.1); Prothrombin Time 10.3 Seconds (9.0-12.0)
[2024-09-30 15:29] LABS: Troponin I High Sensitivity 15.2 pg/ml (0-20)
[2024-09-30 15:36] LABS: Basophils # (auto) 0.08 K/uL (0.00-0.20); Basophils % (auto) 0.9 %; Eosinophils # (auto) 0.39 K/uL (0.00-0.50); Eosinophils % (auto) 4.3 %; Hematocrit (blood only) 38.7 % (42.0-52.0); Hemoglobin 12.3 g/dl (14.0-18.0); Immature Granulocytes # (auto) 0.15 K/uL (0.01-0.20); Immature Granulocytes % (auto) 1.6 %; Lymphocytes # (auto) 1.89 K/uL (1.20-3.40); Lymphocytes % (auto) 20.6 %; Mean Corpuscular Hemoglobin 26.4 pg (25.0-34.0); Mean Corpuscular Hgb Conc 31.8 g/dL (32.0-36.0); Mean Platelet Volume 9.7 fL (9.4-12.4); Monocytes # (auto) 0.77 K/uL (0.11-0.59); Monocytes % (auto) 8.4 %; Neutrophils # (auto) 5.89 K/uL (1.40-6.50); Neutrophils % (auto) 64.2 %; Platelet Count 254 K/uL (130-400); RDW Coefficient of Variation 14.2 % (11.5-14.5); RDW Standard Deviation 42.3 fL (36.4-46.3); Red Blood Count 4.66 M/uL (4.70-6.10); White Blood Count 9.17 K/ul (4.8-10.8)
[2024-09-30 15:36] LABS: iSTAT Creatinine 0.9 mg/dl (0.6-1.3); iSTAT Hemoglobin 13.3 g/dl (14.0-18.0); iSTAT Ionized Calcium 1.2 mmol/l (1.12-1.32); iSTAT Potassium 4.1 mmol/L (3.3-5.0)
[2024-09-30] MEDS: OPTIRAY 320 100ml IV ONE (15:53)
--- NOTE | 2024-09-30 16:05 | CT Scan Report ---
EXAM: CT Abdomen and Pelvis With Intravenous Contrast INDICATION: Diarrhea. TECHNIQUE: Axial computed tomography images of the abdomen and pelvis with intravenous contrast. Sagittal and coronal reformatted images were created and reviewed. This CT exam was performed using one or more of the following dose reduction techniques: automated exposure control, adjustment of the mA and/or kV according to patient size, and/or use of iterative reconstruction technique. CONTRAST: 94ml of Optiray 320 was administered intravenously. COMPARISON: No relevant prior studies available. FINDINGS: Limitations: None. Lung bases: No abnormality noted. Pleural space: No visualized pleural effusion or pneumothorax. Heart: No abnormality noted. Mediastinum: No abnormality noted. ABDOMEN: Liver: Normal size and contour. Hypodense typical of steatosis. No mass or ductal dilation. Gallbladder and bile ducts: No calcified stones or surrounding fluid. Pancreas: Homogeneous enhancement. No mass, inflammation or ductal dilation. Spleen: No significant abnormality noted. Adrenals: No significant abnormality noted. Kidneys and ureters: Normal enhancement. No mass, hydronephrosis or visualized stone. Stomach and bowel: No distension or mucosal thickening. No inflammation noted. PELVIS: Appendix: Appendectomy. Bladder: Mildly distended urinary bladder without stones or gas. Reproductive: No abnormalities noted. ABDOMEN and PELVIS: Intraperitoneal space: No free air. No significant fluid collection. Bones/joints: No acute changes. Soft tissues: There are small bilateral fat containing inguinal hernias. Vasculature: There is minimal atherosclerotic calcification at the origin of the superior mesenteric artery and in the distal abdominal aorta and left common iliac artery. Internal iliac artery atherosclerotic calcification noted. There is moderate coronary calcification. No aneurysm. No visible dissection. Lymph nodes: No pathologically enlarged lymph nodes. IMPRESSION: 1. No intestinal obstruction or inflammation. 2. Mildly distended urinary bladder. 3. Hepatic steatosis. ACT 112: Negative or not required by law. Electronically signed by Carol Salcido 09-30-2024 4:04 PM
[2024-09-30 16:09] LABS: Adenovirus PCR Not Detected (NotDetected); Bordetella parapertussis PCR Not Detected (NotDetected); Bordetella pertussis PCR Not Detected (NotDetected); Chlamydia pneumoniae PCR Not Detected (NotDetected); Coronavirus 229E PCR Not Detected (NotDetected); Coronavirus CoV-2 (COVID19)PCR Not Detected (NotDetected); Coronavirus HKU1 PCR Not Detected (NotDetected); Coronavirus NL63 PCR Not Detected (NotDetected); Coronavirus OC43PCR Not Detected (NotDetected); Human Metapneumovirus PCR Not Detected (NotDetected); Influenza A PCR Not Detected (NotDetected); Influenza B PCR Not Detected (NotDetected); Mycoplasma pneumoniae PCR Not Detected (NotDetected); Parainfluenza Virus 1 PCR Not Detected (NotDetected); Parainfluenza Virus 2 PCR Not Detected (NotDetected); Parainfluenza Virus 3 PCR Not Detected (NotDetected); Parainfluenza Virus 4 PCR Not Detected (NotDetected); Respiratory Syncytial VirusPCR Not Detected (NotDetected); Rhinovirus/Enterovirus PCR Not Detected (NotDetected)
[2024-09-30] MEDS: ACETAMINOPHEN 1,000 MG/100 ML VIAL IV STA (16:39)
--- NOTE | 2024-09-30 16:51 | XRay Report ---
EXAM: Radiograph of the Chest 1 View INDICATION: Abdominal pain. TECHNIQUE: Frontal view of the chest. COMPARISON: 09/15/2024 FINDINGS: Lungs and pleural spaces: Stable prominent interstitial markings which appear chronic. No consolidation or pulmonary edema. No pleural effusion or pneumothorax. Heart: Stable cardiomegaly. Mediastinum: Normal contour. Bones/joints: No fracture, erosion or dislocation. Soft tissues: No abnormality noted. No radiopaque foreign body noted. Upper abdomen: No free air subjacent to either diaphragm. IMPRESSION: Stable chronic changes. No acute disease. ACT 112: Negative or not required by law. Electronically signed by Carol Salcido 09-30-2024 4:51 PM
[2024-09-30] MEDS: MAGNESIUM SULFATE / D5W 1 GM/100 ML BAG IV ONE (20:48)
[2024-09-30 20:55] LABS: Appearance Urine Clear (Clear); Bacteria Urine Automated None Seen (None Seen); Bilirubin Urine Negative (Negative); Blood Urine Negative (Negative); Cast Urine Automated 0-2 /lpf (0-2); Color Urine Yellow; Epithelial Cell Urine Auto 0-2 /hpf (0-2); Glucose Urine UA 3+ (Negative); Ketones Urine Negative (Negative); Leukocyte Esterase Urine Negative (Negative); Nitrite Urine Negative (Negative); Protein Urine 2+ (Negative); RBC Urine Automated 0-2 /hpf (0-2); Specific Gravity Urine 1.025 (1.000-1.030); Urobilinogen Urine Negative (Negative); WBC Urine Automated 0-5 /hpf (0-5); pH Urine 5.5 (4.5-7.5)
[2024-09-30] MEDS: ALBUMIN 25% 12.5 GM/50 ML VIAL IV ONE (21:08)
[2024-09-30] MEDS: METOPROLOL SUCC 50MG EXT REL TAB PO STA (21:10)
[2024-09-30] MEDS ORDERED: PHARMACY GLYCEMIC MGMT CONSULT PRN (21:24)
--- NOTE | 2024-09-30 21:28 | History & Physical Report ---
Date of Service September 30, 2024 Assessment & Plan (1) Chest pain: Plan: Atypical chest pain Rule out ischemic heart disease given patient risk factors chronic diastolic heart failure, some signs of fluid retention Likely secondary to untreated DAMION Hypertension, slightly elevated hyperlipidemia, on statin Rx chronic hypercapnic respiratory failure, hx COPD/RLD, DAMION (current CPAP noncompliance) PE/DVT status post anticoagulation DM2 recently started on insulin pump, suboptimal control as of recent hemoglobin A1c of 11.3 last month Laxative induced diarrhea rule out infectious causes Right foot swelling with abnormal CT Right parotitis on CT imaging, patient asymptomatic chronic anemia, hemoglobin at baseline intellectual disability as per records ongoing tobacco abuse OBS PCU Follow troponin Cardiology consult in a.m. re: persistent chest pain (Outpatient stress test contemplated last admission.) Continue home diuretic Rx Hold home laxative for now, stool C. difficile, stool CS Podiatry consult re: right foot swelling/abnormal CT Outpatient sleep study Pharmacy glycemic control consult given insulin pump Nicotine patch as needed DVT prophylaxis. Heparin subcu Full code Text document was generated using [employer] voice recognition software. It may contain grammatical or spelling errors. Kindly contact undersigned for clarification of any documentation item in question. History of Present Illness Chief Complaint: Chest pain, diarrhea, right foot/left facial swelling Primary Care Provider: Velasquez Valencia MD History obtained from patient and records. Medical history significant for chronic diastolic heart failure (EF 55 to 60%, TTE 2023), hypertension, hyperlipidemia, COPD/RLD, DAMION (current CPAP noncompliance), PE/DVT status post anticoagulation, DM2 on insulin pump, NAFLD, GERD, gastroparesis, history of pancreatitis, chronic anemia (baseline hemoglobin 11-12), morbid obesity, intellectual disability as per records, ongoing tobacco abuse. Recent confinement recent confinement 2 weeks ago for atypical chest pain in the setting of uncontrolled blood pressure and medication noncompliance. Cardiology recommended outpatient stress test. Persistent intermittent achy left-sided chest pain occurring daily at home even at rest as per patient. Achy abdominal pain yesterday with watery diarrhea symptoms. Patient left face and right foot noted to be swollen by patient's girlfriend. Transient left eye pain without visual abnormalities. Achy headache symptoms. No recollection of recent trauma. Chest pain not relieved by nitroglycerin at the ER. 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 Cephalosporins Allergy Unknown Unknown Verified 09/30/24 18:34 empagliflozin AdvReac Unknown put me Verified 09/30/24 18:34 [From Johnance] into ketoacidosis? NSAIDS (Non-Steroidal AdvReac Unknown use with Verified 09/30/24 18:34 Anti-Inflamma caution : hx esophagus damage Home Medications Medication Instructions Recorded Confirmed Type dicyclomine 10 mg capsule 10 mg PO QID PRN Diarrhea 05/01/20 09/30/24 History aspirin 81 mg tablet,delayed 81 mg PO DAILY 30 days #30 tabs 09/17/24 09/30/24 Rx release atorvastatin 20 mg tablet 20 mg PO HS 30 days #30 tabs 09/17/24 09/30/24 Rx famotidine 20 mg tablet 20 mg PO HS 30 days #30 tabs 09/17/24 09/30/24 Rx losartan 50 mg tablet 50 mg PO BID 30 days #30 tabs 09/17/24 09/30/24 Rx omeprazole 40 mg capsule,delayed 40 mg PO DAILYBB 30 days #30 caps 09/17/24 09/30/24 Rx release spironolactone 25 mg tablet 25 mg PO DAILY 30 days #30 tabs 09/17/24 09/30/24 Rx terazosin 1 mg capsule 1 mg PO HS 30 days #30 caps 09/17/24 09/30/24 Rx torsemide 10 mg tablet 20 mg (2 x 10 mg) PO DAILY 30 days 09/17/24 09/30/24 Rx #60 tabs haloperidol 1 mg tablet 1 mg PO DAILY 09/30/24 09/30/24 History metoprolol succinate 100 mg 100 mg PO BID 09/30/24 09/30/24 History tablet,extended release 24 hr polyethylene glycol 3350 17 gram 17 g PO DAILY 09/30/24 09/30/24 History oral powder packet Past Med/Surg History Problem List (Updated 10/01/24 @ 00:05 by Background Dajorge) Diarrhea (Acute) Chest pain (Acute) Generalized pain (Acute) Hyperglycemia due to type 2 diabetes mellitus (Acute) Chest pain (Acute) Chest pain Atypical chest pain Noncompliance with CPAP treatment Hypomagnesemia (Acute) Elevated lactic acid level (Acute) PASHA (acute kidney injury) (Acute) Abdominal pain (Acute) Acute and chronic respiratory failure with hypercapnia Shortness of breath (Acute) 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 Garcia Morbid obesity (Acute) Chronic respiratory failure with hypercapnia Diabetic peripheral neuropathy associated with type 2 diabetes mellitus Loss of protective sensation of skin of foot Epigastric abdominal pain Encounter for pre-operative examination Colon polyp Medical History Chronic diastolic heart failure Volume overload Arthritis Low magnesium level History of RSV infection & flu a few months ago. Tachycardia chronic high heart rate - unknown etiology - a few months ago increased dose of metoprolol. Rhinovirus dx May 23 [facility] & another illness dx - ? name of /antibiotic and inhalers for. feeling better: only symptom : sore throat. COPD (chronic obstructive pulmonary disease) ? dx of Peripheral neuropathy Diabetes mellitus, type 2 Hypertension Tobacco use Restrictive lung disease Elevated liver function tests History of DVT (deep vein thrombosis) "years ago">no known cause Tussive syncope "occurred only one time, no recent issues" Esophagitis Osteoarthritis Hx of pancreatitis resolved GERD (gastroesophageal reflux disease) Cardiac murmur A CHILD Erectile dysfunction MRSA (methicillin resistant Staphylococcus aureus) carrier over 2 yrs ago>"not sure where it was" Intellectual disability Obstructive sleep apnea cpap Obesity IBS (irritable bowel syndrome) History of ventricular tachycardia "nonsustained" Surgical History History of appendectomy 02/10/2023 History of reduction of nasal fracture 09/25/21-Dr. Garcia Status post incision and drainage LLE History of shoulder surgery right-2020 H/O foot surgery LEFT-2018 History of arthroscopy LEFT [id number] History of esophagogastroduodenoscopy (EGD) History of colonoscopy with most recent attempt: failed prep. Told would need a 2 day prep prior to colonoscopy in Sep 2023. History of tooth extraction History of tonsillectomy and adenoidectomy 1979 Family History Brother Family history of diabetes mellitus Environmental allergies Asthma Mother Family history of diabetes mellitus Hypertension Environmental allergies Father Family history of diabetes mellitus Hypertension Heart disease Grandfather (Paternal) Lung cancer smoker Aunt Bleeding disorder Other No family history of adverse response to anesthesia Social History Smoking Status: Current every day smoker Tobacco Type: Cigarettes Age Started Using Tobacco: 14; Cigarettes Per Day: 20; Second Hand Exposure: No; Do You Dip or Chew Tobacco: No; Hx Alcohol Use: No Hx Substance Use: No Preferred Language: Maori Communication Ability: Effective Snipper Required: No Beliefs That Will Affect Care: None marital status: / marital status details: single at this time Current Living Situation: Significant Other Current Living Situation Comment: lives with mom current occupational status: employed 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 Other Information That Helps Us Care for You: No other: girlfriend able to assist with dressing changes and care as needed Feels Safe at Home: Yes Safety Concerns: Feels Safe At This Time Diet: diabetic during the past year weight has: remained stable Assistive Devices: Prosthesis and Wheelchair Review of Systems Review of Systems: As per HPI, all other systems reviewed and negative Physical Exam Physical Exam: GENERAL: Comfortable, pleasant, morbidly obese, no respiratory distress SKIN: Pallor, warm HEENT: Alopecia, no obvious facial swelling, pale palpebral conjunctivae, no ptosis, moist buccal mucosa, nasal cannula in place NECK : Supple, short neck, no tenderness CHEST : Decreased breath sounds, no tenderness HEART : RRR, no obvious murmurs ABDOMEN: Some distention, no abdominal tenderness EXTREMITIES : Right foot swelling without tenderness, left BKA stump NEUROLOGIC : Coherent, no facial asymmetry, no other gross focality Results & Data Results & Data Vital Signs (Past 12 Hours) Vital Signs Temp Pulse Pulse Resp BP BP Pulse Ox 09/30/24 20:43 103 H 18 152/78 H 97 09/30/24 19:15 108 H 09/30/24 19:10 101 H 17 135/86 09/30/24 18:00 105 H 16 118/68 98 09/30/24 16:00 104 H 22 182/91 H 94 09/30/24 15:33 105 H 09/30/24 14:45 92 09/30/24 14:02 36.5 C 107 H 18 189/83 H 96 O2 Del Method 09/30/24 20:43 09/30/24 19:15 09/30/24 19:10 09/30/24 18:00 Room Air 09/30/24 16:00 Room Air 09/30/24 15:33 09/30/24 14:45 Room Air 09/30/24 14:02 Room Air Laboratory Results Laboratory Results WBC 9.17 K/ul (4.8-10.8) 09/30/24 15:21 RBC 4.66 M/uL (4.70-6.10) L 09/30/24 15:21 Hgb 12.3 g/dl (14.0-18.0) L 09/30/24 15: POC Hgb 13.3 g/dl (14.0-18.0) L 09/30/24 15:24 Hct 38.7 % (42.0-52.0) L 09/30/24 15:21 POC Hct 39 % (42-52) L 09/30/24 15:24 MCV 83.0 fL (80.0-100.0) 09/30/24 15: MCH 26.4 pg (25.0-34.0) 09/30/24 15:21 MCHC 31.8 g/dL (32.0-36.0) L 09/30/24 15:21 RDW Std Deviation 42.3 fL (36.4-46.3) 09/30/24 15:21 RDW Coeff of Abiodun 14.2 % (11.5-14.5) 09/30/24 15:21 Plt Count 254 K/uL (130-400) 09/30/24 15:21 MPV 9.7 fL (9.4-12.4) 09/30/24 15:21 Immature Gran % (Auto) 1.6 % 09/30/24 15:21 Neut % (Auto) 64.2 % 09/30/24 15:21 Lymph % (Auto) 20.6 % 09/30/24 15:21 [place] % (Auto) 8.4 % 09/30/24 15:21 Eos % (Auto) 4.3 % 09/30/24 15:21 Baso % (Auto) 0.9 % 09/30/24 15:21 Neut # (Auto) 5.89 K/uL (1.40-6.50) 09/30/24 15:21 Lymph # (Auto) 1.89 K/uL (1.20-3.40) 09/30/24 15:21 [place] # (Auto) 0.77 K/uL (0.11-0.59) H 09/30/24 15:21 Eos # (Auto) 0.39 K/uL (0.00-0.50) 09/30/24 15:21 Baso # (Auto) 0.08 K/uL (0.00-0.20) 09/30/24 15:21 Immature Gran # (Auto) 0.15 K/uL (0.01-0.20) 09/30/24 15:21 Absolute Nucleated RBC Cancelled 09/30/24 14:37 Nucleated RBC % (auto) Cancelled 09/30/24 14:37 Neutrophils % (Manual) Cancelled 09/30/24 14:37 Band Neutrophils % Cancelled 09/30/24 14:37 Lymphocytes % (Manual) Cancelled 09/30/24 14:37 Prolymphocyte % Cancelled 09/30/24 14:37 Reactive Lymphs % (Man) Cancelled 09/30/24 14:37 Monocytes % (Manual) Cancelled 09/30/24 14:37 Eosinophils % (Manual) Cancelled 09/30/24 14:37 Basophils % (Manual) Cancelled 09/30/24 14:37 Metamyelocytes % (Man) Cancelled 09/30/24 14:37 Myelocytes % (Man) Cancelled 09/30/24 14:37 Promyelocytes % (Man) Cancelled 09/30/24 14:37 Blast Cells % (Manual) Cancelled 09/30/24 14:37 Plasma Cell % (Manual) Cancelled 09/30/24 14:37 Other Cells % Cancelled 09/30/24 14:37 Nucleated RBC % Cancelled 09/30/24 14:37 Neutrophils # (Manual) Cancelled 09/30/24 14:37 Band Neutrophils # Cancelled 09/30/24 14:37 Total Absolute Neuts Cancelled 09/30/24 14:37 Lymphocytes # (Manual) Cancelled 09/30/24 14:37 Prolymphocyte # Cancelled 09/30/24 14:37 Reactive Lymphs # Cancelled 09/30/24 14:37 Total Abs Lymphocytes Cancelled 09/30/24 14:37 Monocytes # (Manual) Cancelled 09/30/24 14:37 Eosinophils # (Manual) Cancelled 09/30/24 14:37 Basophils # (Manual) Cancelled 09/30/24 14:37 Metamyelocytes # (Man) Cancelled 09/30/24 14:37 Myelocytes # (Manual) Cancelled 09/30/24 14:37 Promyelocytes # (Man) Cancelled 09/30/24 14:37 Blast Cells # (Man) Cancelled 09/30/24 14:37 Plasma Cell # (Manual) Cancelled 09/30/24 14:37 Other Cells # Cancelled 09/30/24 14:37 Nucleated RBCs # (Man) Cancelled 09/30/24 14:37 Hypersegmented Neuts Cancelled 09/30/24 14:37 Hyposegmented Neuts Cancelled 09/30/24 14:37 Hypogranular Neuts Cancelled 09/30/24 14:37 Large Granular Lymphs Cancelled 09/30/24 14:37 # Lrg Granular Lymphs Cancelled 09/30/24 14:37 Hairy Cells Cancelled 09/30/24 14:37 Smudge Cells Cancelled 09/30/24 14:37 Toxic Granulation Cancelled 09/30/24 14:37 Toxic Vacuolation Cancelled 09/30/24 14:37 Dohle Bodies Cancelled 09/30/24 14:37 Sergio Rods Cancelled 09/30/24 14:37 Platelet Estimate Cancelled 09/30/24 14:37 Hypogranular Platelets Cancelled 09/30/24 14:37 Giant Platelets Cancelled 09/30/24 14:37 Platelet Satelliting Cancelled 09/30/24 14:37 RBC Morphology Cancelled 09/30/24 14:37 Polychromasia Cancelled 09/30/24 14:37 Hypochromasia Cancelled 09/30/24 14:37 Poikilocytosis Cancelled 09/30/24 14:37 Basophilic Stippling Cancelled 09/30/24 14:37 Anisocytosis Cancelled 09/30/24 14:37 Microcytosis Cancelled 09/30/24 14:37 Macrocytosis Cancelled 09/30/24 14:37 Spherocytes Cancelled 09/30/24 14:37 Pappenheimer Bodies Cancelled 09/30/24 14:37 Sickle Cells Cancelled 09/30/24 14:37 Target Cells Cancelled 09/30/24 14:37 Tear Drop Cells Cancelled 09/30/24 14:37 Ovalocytes Cancelled 09/30/24 14:37 Stomatocytes Cancelled 09/30/24 14:37 [place] Bodies Cancelled 09/30/24 14:37 Echinocytes Cancelled 09/30/24 14:37 Acanthocytes (Spur) Cancelled 09/30/24 14:37 Rouleaux Cancelled 09/30/24 14:37 RBC Agglutinates Cancelled 09/30/24 14:37 Schistocytes Cancelled 09/30/24 14:37 Sezary Cell Cancelled 09/30/24 14:37 PT 10.3 Seconds (9.0-12.0) 09/30/24 14:37 INR 0.9 (0.9-1.1) 09/30/24 14:37 POC Sodium 137 mmol/L (135-144) 09/30/24 15:24 Sodium 135 mmol/L (136-145) L 09/30/24 14:37 POC Potassium 4.1 mmol/L (3.3-5.0) 09/30/24 15:24 Potassium 4.1 mmol/L (3.5-5.1) 09/30/24 14:37 POC Chloride 101 mmol/L (101-112) 09/30/24 15:24 Chloride 101 mmol/L (98-107) 09/30/24 14:37 Carbon Dioxide 25 mmol/L (21-32) 09/30/24 14:37 POC Total CO2 25 mmol/L (24-31) 09/30/24 15:24 Anion Gap 9 (3-11) 09/30/24 14:37 POC Anion Gap 16.0 mmol/L (16-25) 09/30/24 15:24 POC BUN 32 mg/dl (7-18) H 09/30/24 15:24 BUN 35 mg/dl (6-23) H 09/30/24 14:37 Creatinine 0.92 mg/dl (0.6-1.4) 09/30/24 14:37 POC Creatinine 0.9 mg/dl (0.6-1.3) 09/30/24 15:24 Est Cr Clr Drug Dosing 154.5 ml/min 09/30/24 14:37 eGFR 101.34 09/30/24 14:37 BUN/Creatinine Ratio 38.0 (10-20) H 09/30/24 14:37 Glucose 398 mg/dl (70-99(Fasting)) H* 09/30/24 14:37 POC Glucose (other) 366 mg/dl (70-99) H* 09/30/24 15:24 Calcium 9.3 mg/dl (8.6-10.3) 09/30/24 14:37 POC Ioniz Calcium [place] 1.20 mmol/l (1.12-1.32) 09/30/24 15:24 Magnesium 1.7 mg/dl (1.7-2.4) 09/30/24 14:37 Total Bilirubin 0.3 mg/dl (0.2-1.0) 09/30/24 14:37 AST 18 U/L (13-39) 09/30/24 14:37 ALT 23 U/L (7-52) 09/30/24 14:37 Alkaline Phosphatase 68 U/L (34-104) 09/30/24 14:37 Troponin I High Sens 15.8 pg/ml (0-20) 09/30/24 18:15 B-Natriuretic Peptide 47 pg/ml (0-100) 09/30/24 15:21 Total Protein 6.7 gm/dl (6.0-8.3) 09/30/24 14:37 Albumin 3.7 gm/dl (3.4-5.0) 09/30/24 14:37 Globulin 3.0 gm/dl (2.5-4.0) 09/30/24 14:37 Albumin/Globulin Ratio 1.2 (0.9-2) 09/30/24 14:37 Lipase 26 U/L (11-82) 09/30/24 14:37 Urine Color Yellow 09/30/24 16:21 Urine Appearance Clear (Clear) 09/30/24 16:21 Urine pH 5.5 (4.5-7.5) 09/30/24 16:21 Ur Specific [place] 1.025 (1.000-1.030) 09/30/24 16:21 Urine Protein 2+ (Negative) H 09/30/24 16:21 Urine Glucose (UA) 3+ (Negative) H 09/30/24 16:21 Urine Ketones Negative (Negative) 09/30/24 16:21 Urine Blood Negative (Negative) 09/30/24 16:21 Urine Nitrite Negative (Negative) 09/30/24 16:21 Urine Bilirubin Negative (Negative) 09/30/24 16:21 Urine Urobilinogen Negative (Negative) 09/30/24 16:21 Ur Leukocyte Esterase Negative (Negative) 09/30/24 16:21 Urine WBC (Auto) 0-5 /hpf (0-5) 09/30/24 16:21 Urine RBC (Auto) 0-2 /hpf (0-2) 09/30/24 16:21 U Hyaline Cast (Auto) 0-2 /lpf (0-2) 09/30/24 16:21 U Epithel Cells (Auto) 0-2 /hpf (0-2) 09/30/24 16:21 Urine Bacteria (Auto) None Seen (None Seen) 09/30/24 16:21 Adenovirus (PCR) Not Detected (NotDetected) 09/30/24 15:12 B. pertussis DNA (PCR) Not Detected (NotDetected) 09/30/24 15:12 B.parapertussis DNA PCR Not Detected (NotDetected) 09/30/24 15:12 C. pneumoniae DNA (PCR) Not Detected (NotDetected) 09/30/24 15:12 Coronavirus OC43 (PCR) Not Detected (NotDetected) 09/30/24 15:12 Coronavirus HKU1 (PCR) Not Detected (NotDetected) 09/30/24 15:12 Coronavirus 229E (PCR) Not Detected (NotDetected) 09/30/24 15:12 SARS-CoV-2 (PCR) Not Detected (NotDetected) 09/30/24 15:12 Coronavirus NL63 (PCR) Not Detected (NotDetected) 09/30/24 15:12 Human Metapneumovir PCR Not Detected (NotDetected) 09/30/24 15:12 Influenza Type A (PCR) Not Detected (NotDetected) 09/30/24 15:12 Influenza Type B (PCR) Not Detected (NotDetected) 09/30/24 15:12 M. pneumoniae (PCR) Not Detected (NotDetected) 09/30/24 15:12 Parainfluenza 1 (PCR) Not Detected (NotDetected) 09/30/24 15:12 Parainfluenza 2 (PCR) Not Detected (NotDetected) 09/30/24 15:12 Parainfluenza 3 (PCR) Not Detected (NotDetected) 09/30/24 15:12 Parainfluenza 4 (PCR) Not Detected (NotDetected) 09/30/24 15:12 RSV (PCR) Not Detected (NotDetected) 09/30/24 15:12 Entero/Rhino (PCR) Not Detected (NotDetected) 09/30/24 15:12 Blood Parasites ID Cancelled 09/30/24 14:37 Impressions Abdomen/Pelvis CT 09/30/24 14:46 EXAM: CT Abdomen and Pelvis With Intravenous Contrast INDICATION: Diarrhea. TECHNIQUE: Axial computed tomography images of the abdomen and pelvis with intravenous contrast. Sagittal and coronal reformatted images were created and reviewed. This CT exam was performed using one or more of the following dose reduction techniques: automated exposure control, adjustment of the mA and/or kV according to patient size, and/or use of iterative reconstruction technique. CONTRAST: 94ml of Optiray 320 was administered intravenously. COMPARISON: No relevant prior studies available. FINDINGS: Limitations: None. Lung bases: No abnormality noted. Pleural space: No visualized pleural effusion or pneumothorax. Heart: No abnormality noted. Mediastinum: No abnormality noted. ABDOMEN: Liver: Normal size and contour. Hypodense typical of steatosis. No mass or ductal dilation. Gallbladder and bile ducts: No calcified stones or surrounding fluid. Pancreas: Homogeneous enhancement. No mass, inflammation or ductal dilation. Spleen: No significant abnormality noted. Adrenals: No significant abnormality noted. Kidneys and ureters: Normal enhancement. No mass, hydronephrosis or visualized stone. Stomach and bowel: No distension or mucosal thickening. No inflammation noted. PELVIS: Appendix: Appendectomy. Bladder: Mildly distended urinary bladder without stones or gas. Reproductive: No abnormalities noted. ABDOMEN and PELVIS: Intraperitoneal space: No free air. No significant fluid collection. Bones/joints: No acute changes. Soft tissues: There are small bilateral fat containing inguinal hernias. Vasculature: There is minimal atherosclerotic calcification at the origin of the superior mesenteric artery and in the distal abdominal aorta and left common iliac artery. Internal iliac artery atherosclerotic calcification noted. There is moderate coronary calcification. No aneurysm. No visible dissection. Lymph nodes: No pathologically enlarged lymph nodes. IMPRESSION: 1. No intestinal obstruction or inflammation. 2. Mildly distended urinary bladder. 3. Hepatic steatosis. ACT 112: Negative or not required by law. Electronically signed by Carol Salcido 09-30-2024 4:04 PM Chest X-Ray 09/30/24 16:12 EXAM: Radiograph of the Chest 1 View INDICATION: Abdominal pain. TECHNIQUE: Frontal view of the chest. COMPARISON: 09/15/2024 FINDINGS: Lungs and pleural spaces: Stable prominent interstitial markings which appear chronic. No consolidation or pulmonary edema. No pleural effusion or pneumothorax. Heart: Stable cardiomegaly. Mediastinum: Normal contour. Bones/joints: No fracture, erosion or dislocation. Soft tissues: No abnormality noted. No radiopaque foreign body noted. Upper abdomen: No free air subjacent to either diaphragm. IMPRESSION: Stable chronic changes. No acute disease. ACT 112: Negative or not required by law. Electronically signed by Carol Salcido 09-30-2024 4:51 PM CTA chest: 1. No definite acute abnormality, with moderate artifact limiting evaluation. CT head: No evidence of acute intracanal pathology. CT face: No findings concerning for right parotitis, which may be infectious or inflammatory etiology is. No evidence of sialolithiasis. CT right foot: 1. Well-corticated bony fragment along the posterior talus margin, nonspecific, could reflect os trigonum or a chronic, nonunited fracture with pseudoarticulation. 2. Mild to moderate superficial cellulitis foot and ankle. 3. No definite acute fracture. Diagnostic Findings EKG as per my interpretation :rate 110, sinus tachycardia, normal axis, incomplete RBBB, T wave flattening inferior leads (1) Chest pain Chest pain type: unspecified Qualified Code(s): R07.9 - Chest pain, unspecified
[2024-09-30] MEDS ORDERED: PROMETHAZINE 12.5 MG/50.5 ML BAG IV PRN (21:30)
[2024-09-30] MEDS ORDERED: ACETAMINOPHEN 500 MG TAB PO PRN (21:30)
[2024-09-30] MEDS: NITROGLYCERIN SL 0.4 MG/TAB TAB SL STA (21:34)
[2024-09-30] MEDS: oxyCODONE HCL IR 5 MG TAB (IMMEDIATE RELEASE) PO PRN (21:45)
[2024-09-30 22:09] LABS: Troponin I High Sensitivity 18.8 pg/ml (0-20)
[2024-09-30] MEDS: FUROSEMIDE INJ 20 MG/2 ML VIAL IV STA (22:14)
[2024-09-30 22:18] LABS: Thyroid Stimulating Hormone 0.611 uIu/ml (0.300-4.500)
[2024-09-30] MEDS: OPTIRAY 320 125ml IV ONE (23:02)
[2024-09-30] MEDS ORDERED: CARBOHYDRATES FOR HYPOGLYCEMIA PO PRN (23:30)
[2024-09-30] MEDS ORDERED: GLUCAGON FOR INJ 1 MG VIAL SQ PRN (23:30)
[2024-09-30] MEDS ORDERED: DEXTROSE 50% 50 ML SYRINGE IV PRN (23:30)
[2024-09-30] MEDS ORDERED: GLUCOSE 10 TAB/TUBE PO PRN (23:30)
[2024-09-30] MEDS ORDERED: GLUCOSE 40% GEL 15 GM TUBE PO PRN (23:30)
[2024-09-30] MEDS: INSULIN ASPART PER UNIT CHARGE SC ONE (23:58)
[2024-09-30] MEDS: LANTUS PER UNIT CHARGE SC ONE (23:58)
[2024-10-01] MEDS: TERAZOSIN HCL 1 MG CAP PO SCH
--- NOTE | 2024-10-01 00:13 | CT Scan Report ---
Exam(s): CTA CHEST IV Amt: 120ml optiray 320 EXAM: CT Angiography Chest With Intravenous Contrast CLINICAL HISTORY: Reason for exam: cp. TECHNIQUE: Axial computed tomographic angiography images of the chest with intravenous contrast. Automated exposure control was utilized for the study. A dose lowering technique was utilized adhering to the principles of ALARA. MIP reconstructed images were created and reviewed. Moderate artifact from body habitus, breathing/patient motion. 120 ML Optiray 320 given IV. COMPARISON: CTA chest 07/13/24. FINDINGS: Aorta: No dissection or aneurysm. Pulmonary arteries: No central pulmonary embolism, with limited evaluation for mid or peripheral disease given significant artifact. Lungs: Clear. No consolidation. Pleural space: No significant effusion. No pneumothorax. Heart: Stable, moderate cardiomegaly. No significant pericardial effusion. Bones/joints: No acute fracture. Soft tissues: Small hiatal hernia, stable. Lymph nodes: No enlarged lymph nodes. IMPRESSION: 1. No definite acute abnormality, with moderate artifact limiting evaluation. Electronically signed by: Adilene Adler M.D. 10/01/24 00:12 AM
--- NOTE | 2024-10-01 00:19 | CT Scan Report ---
Exam(s): CT FACIAL Without Contrast EXAM: CT Head and Maxillofacial Without Intravenous Contrast CLINICAL HISTORY: Reason for exam: swelling. TECHNIQUE: Axial computed tomography images of the head/brain and face without intravenous contrast. Automated exposure control was utilized for the study. A dose lowering technique was utilized adhering to the principles of ALARA. COMPARISON: No relevant prior studies available. FINDINGS: This study is limited as only bone windows images were presented for evaluation. Bones/joints: No acute fracture. Soft tissues: The right parotid gland is enlarged and edematous. Sinuses: Unremarkable as visualized. No acute sinusitis. Mastoid air cells: Unremarkable as visualized. No mastoid effusion. Orbits: Unremarkable as visualized. IMPRESSION: No findings concerning for right parotitis, which may be infectious or inflammatory etiology is. No evidence of sialolithiasis. Electronically signed by: Ethel Oro MD 10/01/24 00:17 AM
--- NOTE | 2024-10-01 00:21 | CT Scan Report ---
Exam(s): CT RIGHT FOOT Without Contrast EXAM: CT Right Lower Extremity Without Intravenous Contrast, Foot CLINICAL HISTORY: Reason for exam: swelling. TECHNIQUE: Axial computed tomography images of the right foot without intravenous contrast. CTDI is 24.91 mGy and DLP is 621.31 mGy-cm. Automated exposure control was utilized for the study. A dose lowering technique was utilized adhering to the principles of ALARA. COMPARISON: None. FINDINGS: Bones/joints: Osteoarthritis about the ankle and hindfoot. Well- corticated bony fragment abutting the posterior margin of the talus, nonspecific, could reflect os trigonum or chronic, nonunited fracture of the posterior process with pseudoarticulation. No definite acute fracture or osteomyelitis. No dislocation. Soft tissues: Moderate cellulitis dorsal margin of the foot and mild ankle cellulitis. No radiopaque foreign body. IMPRESSION: 1. Well-corticated bony fragment along the posterior talus margin, nonspecific, could reflect os trigonum or a chronic, nonunited fracture with pseudoarticulation. 2. Mild to moderate superficial cellulitis foot and ankle. 3. No definite acute fracture. Electronically signed by: Adilene Adler M.D. 10/01/24 00:20 AM
--- NOTE | 2024-10-01 00:24 | CT Scan Report ---
Exam(s): CT HEAD Without Contrast EXAM: CT Head Without Intravenous Contrast CLINICAL HISTORY: Reason for exam: avery, eye pain. TECHNIQUE: Axial computed tomography images of the head/brain without intravenous contrast. Automated exposure control was utilized for the study. A dose lowering technique was utilized adhering to the principles of ALARA. COMPARISON: No relevant prior studies available. FINDINGS: Brain: Unremarkable. No hemorrhage. No significant white matter disease. No edema. Ventricles: Unremarkable. No ventriculomegaly. Bones/joints: Unremarkable. No acute fracture. Soft tissues: There is mild soft tissue swelling about the posterior occiput with tiny hematoma. Sinuses: Unremarkable as visualized. No acute sinusitis. Mastoid air cells: Unremarkable as visualized. No mastoid effusion. IMPRESSION: No evidence of acute intracanal pathology. Electronically signed by: Ethel Oro MD 10/01/24 00:23 AM
[2024-10-01] MEDS: INSULIN ASPART PER UNIT CHARGE SC ONE (04:15)
[2024-10-01] MEDS: PANTOprazole 40 MG TAB PO SCH (05:32)
--- NOTE | 2024-10-01 06:21 | Electrocardiogram Report ---
Test Reason : Blood Pressure : */* mmHG Vent. Rate : 106 BPM Atrial Rate : 106 BPM P-R Int : 160 ms QRS Dur : 102 ms QT Int : 354 ms P-R-T Axes : 58 9 29 degrees QTcB Int : 470 ms Sinus tachycardia Incomplete right bundle branch block Borderline ECG When compared with ECG of 16-Sep-2024 05:47, Questionable change in QRS axis Confirmed by Brandin Guerra ([id number]) on 10/01/2024 6:21:12 AM Referred By: REFERRED SELF Confirmed By: Brandin Guerra
[2024-10-01 06:38] LABS: Basophils # (auto) 0.06 K/uL (0.00-0.20); Basophils % (auto) 0.8 %; Eosinophils % (auto) 5.5 %; Hematocrit (blood only) 37.6 % (42.0-52.0); Hemoglobin 11.7 g/dl (14.0-18.0); Immature Granulocytes # (auto) 0.12 K/uL (0.01-0.20); Immature Granulocytes % (auto) 1.7 %; Lymphocytes # (auto) 1.66 K/uL (1.20-3.40); Lymphocytes % (auto) 22.9 %; Mean Corpuscular Hemoglobin 26.1 pg (25.0-34.0); Mean Corpuscular Hgb Conc 31.1 g/dL (32.0-36.0); Mean Corpuscular Volume 83.7 fL (80.0-100.0); Mean Platelet Volume 9.5 fL (9.4-12.4); Monocytes # (auto) 0.75 K/uL (0.11-0.59); Monocytes % (auto) 10.4 %; Neutrophils # (auto) 4.25 K/uL (1.40-6.50); Neutrophils % (auto) 58.7 %; Platelet Count 261 K/uL (130-400); RDW Coefficient of Variation 14.3 % (11.5-14.5); RDW Standard Deviation 43.3 fL (36.4-46.3); Red Blood Count 4.49 M/uL (4.70-6.10); White Blood Count 7.24 K/ul (4.8-10.8)
[2024-10-01 06:51] LABS: Calcium 9.2 mg/dl (8.6-10.3); Creatinine Clr Calc Pharmacy 140.7 ml/min; Potassium 4.1 mmol/L (3.5-5.1)
[2024-10-01 07:17] LABS: Partial Thromboplastin Time 28 Seconds (21-31)
[2024-10-01] MEDS ORDERED: LANTUS PER UNIT CHARGE SC ONE (08:00)
[2024-10-01] MEDS: INSULIN ASPART PER UNIT CHARGE SC SCH (08:08)
[2024-10-01] MEDS: ASPIRIN 81 MG ECTAB PO SCH (08:09)
[2024-10-01] MEDS: SPIRONOLACTONE 25 MG TAB PO SCH (08:09)
[2024-10-01] MEDS: LANTUS PER UNIT CHARGE SC SCH ×2 (08:09→20:38)
[2024-10-01] MEDS: haloperidoL 1 MG TAB PO SCH (08:09)
[2024-10-01] MEDS: TORSEMIDE 20 MG TAB PO SCH (08:09)
[2024-10-01] MEDS: METOPROLOL SUCC 50MG EXT REL TAB PO SCH (08:10)
[2024-10-01] MEDS: ENOXAPARIN INJ 40 MG/0.4 ML SYR SQ SCH (08:10)
[2024-10-01] MEDS: LOSARTAN POTASSIUM 50 MG TAB PO SCH (08:10)
--- NOTE | 2024-10-01 08:28 | Hospitalist Progress Note ---
Date of Service October 01, 2024 Assessment & Plan (1) Chest pain: Plan Pt is a 48yoM with PMhx significant for chronic diastolic heart failure (EF 55 to 60%, TTE 2023), hypertension, hyperlipidemia, COPD/RLD, DAMION (current CPAP noncompliance), PE/DVT status post anticoagulation, DM2 on insulin pump, NAFLD, GERD, gastroparesis, history of pancreatitis, chronic anemia (baseline hemoglobin 11-12), morbid obesity, intellectual disability as per records, ongoing tobacco abuse presenting for evaluation of chest pain once more. Chest Pain Pt presenting with chest pain once more Troponins normal x3 EKG noting sinus tachycardia Echo with EF 55-60%, mild LVH, Grade I diastolic dysfunction XR left shoulder ordered and pending Cardiology consult, appreciate recs Anemia, chronic Hgb in 11.7-12 range Continue to monitor Hyperglycemia DM, uncontrolled Hemoglobin a1c of 11 last moth Basal/bolus regimen while hospitalized, hold home meds Pharmacy consult as pt on insulin pump R parotitis Noted on facial CT Pt asymptomatic Consider outpt ENT f/u RLE Cellulitis RLE with noted swelling CT concerning for cellulitis, no osteomyelitis at this time Started on doxycycline 100mg BID Podiatry consult, appreciate recs Diarrhea possibly laxative induced Hold home laxative for now, stool C. difficile, stool CS chronic diastolic heart failure some signs of fluid retention Continue home diuretics Other Chronic Conditions: Hypertension, slightly elevated hyperlipidemia, on statin Rx chronic hypercapnic respiratory failure, hx COPD/RLD, DAMION (current CPAP noncompliance) PE/DVT status post anticoagulation DM2 recently started on insulin pump, suboptimal control as of recent hemoglobin A1c of 11.3 last month Laxative induced diarrhea rule out infectious causes Right foot swelling with abnormal CT Right parotitis on CT imaging, patient asymptomatic chronic anemia, hemoglobin at baseline intellectual disability as per records ongoing tobacco abuse Diet: HH/DMII/Fluid restriction DVT prophylaxis: Heparin subcu Dispo: Home once medically stable Admission and Anticipated Discharge Date Admission Date: September 30, 2024 Subjective patient was seen laying in bed States that he did not have the pain at the time of exam. Denying SOB Review of Systems Review of Systems: All systems reviewed & are unremarkable except as noted in Subjective Physical Exam Physical Exam: General: Alert, oriented. No acute distress Psych: Appropriate mood and affect Neuro: No gross deficits while laying in bed HEENT: NC/AT CV: RRR Resp: Breath sounds clear bilaterally, no increased effort of breathing Abdomen: Soft, nontender Extremities: Left BKA Results & Data Results & Data Vital Signs (Past 12 Hours) Vital Signs Temp Pulse Pulse Resp BP Pulse Ox O2 Del Method 10/01/24 07:07 36.8 C 91 H 16 145/86 H 97 Nasal Cannula 10/01/24 07:00 83 10/01/24 03:05 36.8 C 88 20 109/60 96 Nasal Cannula 10/01/24 00:15 Room Air 09/30/24 23:30 92 H 09/30/24 23:10 36.9 C 90 22 171/91 H 93 Room Air 09/30/24 22:14 98 H 18 110/63 96 Nasal Cannula 09/30/24 21:49 102 H 20 131/56 L 94 Nasal Cannula 09/30/24 20:43 103 H 18 152/78 H 97 O2 Flow Rate 10/01/24 07:07 3 10/01/24 07:00 10/01/24 03:05 2 10/01/24 00:15 09/30/24 23:30 09/30/24 23:10 09/30/24 22:14 2 09/30/24 21:49 2 09/30/24 20:43 Diagnostic Findings Abdomen/Pelvis CT 09/30/24 14:46 EXAM: CT Abdomen and Pelvis With Intravenous Contrast INDICATION: Diarrhea. TECHNIQUE: Axial computed tomography images of the abdomen and pelvis with intravenous contrast. Sagittal and coronal reformatted images were created and reviewed. This CT exam was performed using one or more of the following dose reduction techniques: automated exposure control, adjustment of the mA and/or kV according to patient size, and/or use of iterative reconstruction technique. CONTRAST: 94ml of Optiray 320 was administered intravenously. COMPARISON: No relevant prior studies available. FINDINGS: Limitations: None. Lung bases: No abnormality noted. Pleural space: No visualized pleural effusion or pneumothorax. Heart: No abnormality noted. Mediastinum: No abnormality noted. ABDOMEN: Liver: Normal size and contour. Hypodense typical of steatosis. No mass or ductal dilation. Gallbladder and bile ducts: No calcified stones or surrounding fluid. Pancreas: Homogeneous enhancement. No mass, inflammation or ductal dilation. Spleen: No significant abnormality noted. Adrenals: No significant abnormality noted. Kidneys and ureters: Normal enhancement. No mass, hydronephrosis or visualized stone. Stomach and bowel: No distension or mucosal thickening. No inflammation noted. PELVIS: Appendix: Appendectomy. Bladder: Mildly distended urinary bladder without stones or gas. Reproductive: No abnormalities noted. ABDOMEN and PELVIS: Intraperitoneal space: No free air. No significant fluid collection. Bones/joints: No acute changes. Soft tissues: There are small bilateral fat containing inguinal hernias. Vasculature: There is minimal atherosclerotic calcification at the origin of the superior mesenteric artery and in the distal abdominal aorta and left common iliac artery. Internal iliac artery atherosclerotic calcification noted. There is moderate coronary calcification. No aneurysm. No visible dissection. Lymph nodes: No pathologically enlarged lymph nodes. IMPRESSION: 1. No intestinal obstruction or inflammation. 2. Mildly distended urinary bladder. 3. Hepatic steatosis. ACT 112: Negative or not required by law. Electronically signed by Carol Salcido 09-30-2024 4:04 PM Chest X-Ray 09/30/24 16:12 EXAM: Radiograph of the Chest 1 View INDICATION: Abdominal pain. TECHNIQUE: Frontal view of the chest. COMPARISON: 09/15/2024 FINDINGS: Lungs and pleural spaces: Stable prominent interstitial markings which appear chronic. No consolidation or pulmonary edema. No pleural effusion or pneumothorax. Heart: Stable cardiomegaly. Mediastinum: Normal contour. Bones/joints: No fracture, erosion or dislocation. Soft tissues: No abnormality noted. No radiopaque foreign body noted. Upper abdomen: No free air subjacent to either diaphragm. IMPRESSION: Stable chronic changes. No acute disease. ACT 112: Negative or not required by law. Electronically signed by Carol Salcido 09-30-2024 4:51 PM Chest CTA 09/30/24 21:42 Exam(s): CTA CHEST IV Amt: 120ml optiray 320 EXAM: CT Angiography Chest With Intravenous Contrast CLINICAL HISTORY: Reason for exam: cp. TECHNIQUE: Axial computed tomographic angiography images of the chest with intravenous contrast. Automated exposure control was utilized for the study. A dose lowering technique was utilized adhering to the principles of ALARA. MIP reconstructed images were created and reviewed. Moderate artifact from body habitus, breathing/patient motion. 120 ML Optiray 320 given IV. COMPARISON: CTA chest 07/13/24. FINDINGS: Aorta: No dissection or aneurysm. Pulmonary arteries: No central pulmonary embolism, with limited evaluation for mid or peripheral disease given significant artifact. Lungs: Clear. No consolidation. Pleural space: No significant effusion. No pneumothorax. Heart: Stable, moderate cardiomegaly. No significant pericardial effusion. Bones/joints: No acute fracture. Soft tissues: Small hiatal hernia, stable. Lymph nodes: No enlarged lymph nodes. IMPRESSION: 1. No definite acute abnormality, with moderate artifact limiting evaluation. Electronically signed by: Adilene Adler M.D. 10/01/24 00:[address] 09/30/24 21:42 Exam(s): CT FACIAL Without Contrast EXAM: CT Head and Maxillofacial Without Intravenous Contrast CLINICAL HISTORY: Reason for exam: swelling. TECHNIQUE: Axial computed tomography images of the head/brain and face without intravenous contrast. Automated exposure control was utilized for the study. A dose lowering technique was utilized adhering to the principles of ALARA. COMPARISON: No relevant prior studies available. FINDINGS: This study is limited as only bone windows images were presented for evaluation. Bones/joints: No acute fracture. Soft tissues: The right parotid gland is enlarged and edematous. Sinuses: Unremarkable as visualized. No acute sinusitis. Mastoid air cells: Unremarkable as visualized. No mastoid effusion. Orbits: Unremarkable as visualized. IMPRESSION: No findings concerning for right parotitis, which may be infectious or inflammatory etiology is. No evidence of sialolithiasis. Electronically signed by: Ethel Oro MD 10/01/24 00:[address] 09/30/24 21:42 Exam(s): CT RIGHT FOOT Without Contrast EXAM: CT Right Lower Extremity Without Intravenous Contrast, Foot CLINICAL HISTORY: Reason for exam: swelling. TECHNIQUE: Axial computed tomography images of the right foot without intravenous contrast. CTDI is 24.91 mGy and DLP is 621.31 mGy-cm. Automated exposure control was utilized for the study. A dose lowering technique was utilized adhering to the principles of ALARA. COMPARISON: None. FINDINGS: Bones/joints: Osteoarthritis about the ankle and hindfoot. Well- corticated bony fragment abutting the posterior margin of the talus, nonspecific, could reflect os trigonum or chronic, nonunited fracture of the posterior process with pseudoarticulation. No definite acute fracture or osteomyelitis. No dislocation. Soft tissues: Moderate cellulitis dorsal margin of the foot and mild ankle cellulitis. No radiopaque foreign body. IMPRESSION: 1. Well-corticated bony fragment along the posterior talus margin, nonspecific, could reflect os trigonum or a chronic, nonunited fracture with pseudoarticulation. 2. Mild to moderate superficial cellulitis foot and ankle. 3. No definite acute fracture. Electronically signed by: Adilene Adler M.D. 10/01/24 00:[address] 09/30/24 21:42 Exam(s): CT HEAD Without Contrast EXAM: CT Head Without Intravenous Contrast CLINICAL HISTORY: Reason for exam: avery, eye pain. TECHNIQUE: Axial computed tomography images of the head/brain without intravenous contrast. Automated exposure control was utilized for the study. A dose lowering technique was utilized adhering to the principles of ALARA. COMPARISON: No relevant prior studies available. FINDINGS: Brain: Unremarkable. No hemorrhage. No significant white matter disease. No edema. Ventricles: Unremarkable. No ventriculomegaly. Bones/joints: Unremarkable. No acute fracture. Soft tissues: There is mild soft tissue swelling about the posterior occiput with tiny hematoma. Sinuses: Unremarkable as visualized. No acute sinusitis. Mastoid air cells: Unremarkable as visualized. No mastoid effusion. IMPRESSION: No evidence of acute intracanal pathology. Electronically signed by: Ethel Oro MD 10/01/24 00:23 AM (1) Chest pain Chest pain type: unspecified Qualified Code(s): R07.9 - Chest pain, unspecified
[2024-10-01] MEDS: DOXYCYCLINE HYCLATE 100 MG CAP PO SCH (09:29)
--- NOTE | 2024-10-01 10:43 | Cardiology Consultation ---
Date of Consultation October 01, 2024 Assessment & Plan (1) Atypical chest pain: (2) Noncompliance with CPAP treatment: (3) HTN, goal below 130/80: (4) Multiple risk factors for coronary artery disease: Plan Atypical chest discomfort. Patient with constant left upper outer/left shoulder chest discomfort for at least 2 weeks. EKG without acute change. High- sensitivity troponin negative. Recent resting echocardiography with preserved LV systolic function, without wall motion abnormality or significant valvular disease. Agree with plans for outpatient Lexiscan nuclear stress testing on October 09, 2024 noting multiple cardiac risk factors. Recommend evaluation for noncardiac etiologies as per Hospitalist. Volume overload. Examination reveals a normovolemic patient. Continue prior to arrival diuretic regimen including torsemide and spironolactone. Recommend sodium (2 g/day) and fluid (2 L/day) restrictions. Recommend DTP, doubling torsemide dosing x 2 to 3 days if patient experiences 2 pound weight gain overnight or 5 pound weight gain in 1 week. Hypertension. Labile blood pressures observed, acceptably controlled. Continue the current antihypertensive regimen. Untreated obstructive sleep apnea. Recommend reevaluation and treatment Avoid NSAIDs except for aspirin 81 mg/day. Continue beta-ryan, aspirin, statin, risk factor, and lifestyle modification. Supervising Physician Co-Signing Physician Notes I spent a total of 50 minutes on the date of service in preparation, delivery, and documentation of the care provided to this patient, excluding any time spent in the performance of separately billed services. I have personally performed a history and physical examination on the patient. I have reviewed the advance practitioner's documentation, and I agree with, and take responsibility for the plan of care. History of Present Illness Reason for Consultation: Chest pain Requesting Physician: Dr. Brown Attending Physician: Dr. Rose Lanza MD History of Present Illness Bry Akhtar Jr is a 48-year-old male who returned to the [facility] ER on September 30, 2024 with complaints of fluid retention and ongoing left upper outer chest/shoulder discomfort. Patient notes constant left upper outer chest/left shoulder discomfort for at least the past 2 weeks. No aggravating or alleviating factors identified. No associated symptoms such as shortness of breath, nausea, or diaphoresis. Patient does note diffuse fluid retention, IBS type symptoms, recent bout of loose stools, occasional headache. EKG without acute ST segment change. High-sensitivity troponin negative x 4 (15.2 -> 15.8 -> 18.8 -> 19.6). Chest x-ray without acute disease. CTA of the chest with no definite acute abnormality. Telemetry revealing sinus throughout, heart rates currently in the 90s. Resting echocardiography on September 16, 2024 demonstrated preserved LV systolic function without wall motion abnormality. LVEF 55 to 60%. Mild concentric LVH noted along with grade 1 diastolic dysfunction. No significant valvular pathology observed. Problem list Chronic diastolic congestive heart failure, HFpEF Hypertension, hypertensive heart disease, history of hypertensive urgency Dyslipidemia Type 2 diabetes mellitus Gastroparesis Neuropathy Charcot foot Status post below-knee amputation on the left Gastroparesis IBS GERD/esophagitis History of pancreatitis Chronic anemia Obstructive sleep apnea, untreated History of DVT/PE Nonalcoholic fatty liver disease Morbid obesity Intellectual disability History of tobacco use COPD Allergies Allergy/AdvReac Type Severity Reaction Status Date / Time cefaclor [From Ceclor] Allergy Unknown childhood Verified 09/30/24 18:34 allergy ? Cephalosporins Allergy Unknown Unknown Verified 09/30/24 18:34 empagliflozin AdvReac Unknown put me Verified 09/30/24 18:34 [From Jardiance] into ketoacidosis? NSAIDS (Non-Steroidal AdvReac Unknown use with Verified 09/30/24 18:34 Anti-Inflamma caution : hx esophagus damage Home Medications Medication Instructions Recorded Confirmed Type dicyclomine 10 mg capsule 10 mg PO QID PRN Diarrhea 05/01/20 09/30/24 History aspirin 81 mg tablet,delayed 81 mg PO DAILY 30 days #30 tabs 09/17/24 09/30/24 Rx release atorvastatin 20 mg tablet 20 mg PO HS 30 days #30 tabs 09/17/24 09/30/24 Rx famotidine 20 mg tablet 20 mg PO HS 30 days #30 tabs 09/17/24 09/30/24 Rx losartan 50 mg tablet 50 mg PO BID 30 days #30 tabs 09/17/24 09/30/24 Rx omeprazole 40 mg capsule,delayed 40 mg PO DAILYBB 30 days #30 caps 09/17/24 09/30/24 Rx release spironolactone 25 mg tablet 25 mg PO DAILY 30 days #30 tabs 09/17/24 09/30/24 Rx terazosin 1 mg capsule 1 mg PO HS 30 days #30 caps 09/17/24 09/30/24 Rx torsemide 10 mg tablet 20 mg (2 x 10 mg) PO DAILY 30 days 09/17/24 09/30/24 Rx #60 tabs haloperidol 1 mg tablet 1 mg PO DAILY 09/30/24 09/30/24 History metoprolol succinate 100 mg 100 mg PO BID 09/30/24 09/30/24 History tablet,extended release 24 hr polyethylene glycol 3350 17 gram 17 g PO DAILY 09/30/24 09/30/24 History oral powder packet Patient History Medical History Chronic diastolic heart failure Volume overload Arthritis Low magnesium level History of RSV infection & flu a few months ago. Tachycardia chronic high heart rate - unknown etiology - a few months ago increased dose of metoprolol. Rhinovirus dx May 23 [facility] & another illness dx - ? name of /antibiotic and inhalers for. feeling better: only symptom : sore throat. COPD (chronic obstructive pulmonary disease) ? dx of Peripheral neuropathy Diabetes mellitus, type 2 Hypertension Tobacco use Restrictive lung disease Elevated liver function tests History of DVT (deep vein thrombosis) "years ago">no known cause Tussive syncope "occurred only one time, no recent issues" Esophagitis Osteoarthritis Hx of pancreatitis resolved GERD (gastroesophageal reflux disease) Cardiac murmur A CHILD Erectile dysfunction MRSA (methicillin resistant Staphylococcus aureus) carrier over 2 yrs ago>"not sure where it was" Intellectual disability Obstructive sleep apnea cpap Obesity IBS (irritable bowel syndrome) History of ventricular tachycardia "nonsustained" Surgical History History of appendectomy 02/10/2023 History of reduction of nasal fracture 09/25/21-Dr. Garcia Status post incision and drainage LLE History of shoulder surgery right-2019 H/O foot surgery LEFT-2018 History of arthroscopy LEFT KNEE-1987 History of esophagogastroduodenoscopy (EGD) History of colonoscopy with most recent attempt: failed prep. Told would need a 2 day prep prior to colonoscopy in Sep 2023. History of tooth extraction History of tonsillectomy and adenoidectomy 1979 Family History Brother Family history of diabetes mellitus Environmental allergies Asthma Mother Family history of diabetes mellitus Hypertension Environmental allergies Father Family history of diabetes mellitus Hypertension Heart disease Grandfather (Paternal) Lung cancer smoker Aunt Bleeding disorder Other No family history of adverse response to anesthesia Social History Smoking Status: Current every day smoker Tobacco Type: Cigarettes Age Started Using Tobacco: 14; Cigarettes Per Day: 20; Second Hand Exposure: No; Do You Dip or Chew Tobacco: No; Hx Alcohol Use: No Hx Substance Use: No Preferred Language: Mongolian Communication Ability: Effective Digital Designer Required: No Beliefs That Will Affect Care: None marital status: / marital status details: single at this time Current Living Situation: Significant Other Current Living Situation Comment: lives with mom current occupational status: employed 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 NAD. HENT: Normocephalic. Atraumatic. Eyes: PER. Conjunctiva pink, sclera clear. Neck: I could not appreciate his neck veins. No carotid bruits. Heart: Distant heart sounds. RRR, 86 bpm. No murmur Lungs: Clear to auscultation. Abdomen: +BS. Soft. Nontender. No masses or organomegaly. Extremities: Minimal distal edema. No cyanosis. No clubbing Limited neurological examination is without focal deficits. Pulses: radial=2/4, posterior tibial=1/4 on the right. BKA on the left. Results & Data Vital Signs (Past 12 Hours) Vital Signs Temp Pulse Pulse Resp BP Pulse Ox O2 Del Method 10/01/24 07:07 36.8 C 91 H 16 145/86 H 97 Nasal Cannula 10/01/24 07:00 83 10/01/24 03:05 36.8 C 88 20 109/60 96 Nasal Cannula 10/01/24 00:15 Room Air 09/30/24 23:30 92 H 09/30/24 23:10 36.9 C 90 22 171/91 H 93 Room Air O2 Flow Rate 10/01/24 07:07 3 10/01/24 07:00 10/01/24 03:05 2 10/01/24 00:15 09/30/24 23:30 09/30/24 23:10 Laboratory Results Cardiac Enzymes 09/30/24 09/30/24 09/30/24 Range/Units 14:37 15:21 18:15 AST 18 (13-39) U/L Troponin I High Sens 15.2 15.8 (0-20) pg/ml B-Natriuretic Peptide 47 (0-100) pg/ml 09/30/24 10/01/24 Range/Units 21:26 06:07 AST (13-39) U/L Troponin I High Sens 18.8 19.6 (0-20) pg/ml B-Natriuretic Peptide (0-100) pg/ml Coagulation 09/30/24 09/30/24 10/01/24 Range/Units 14:37 15:21 06:07 PT 10.3 (9.0-12.0) Seconds APTT 28 (21-31) Seconds B-Natriuretic Peptide 47 (0-100) pg/ml CBC 09/30/24 09/30/24 10/01/24 Range/Units 14:37 15:21 06:07 WBC Cancelled 9.17 7.24 RBC Cancelled 4.66 L 4.49 L Hgb Cancelled 12.3 L 11.7 L Hct Cancelled 38.7 L 37.6 L Plt Count Cancelled 254 261 Neut # (Auto) Cancelled 5.89 4.25 Lymph # (Auto) Cancelled 1.89 1.66 [place] # (Auto) Cancelled 0.77 H 0.75 H Eos # (Auto) Cancelled 0.39 0.40 Baso # (Auto) Cancelled 0.08 0.06 Comprehensive Metabolic Panel 09/30/24 10/01/24 Range/Units 14:37 06:07 Sodium 135 L 138 (136-145) mmol/L Potassium 4.1 4.1 (3.5-5.1) mmol/L Chloride 101 103 (98-107) mmol/L Carbon Dioxide 25 29 (21-32) mmol/L BUN 35 H 28 H (6-23) mg/dl Creatinine 0.92 1.00 (0.6-1.4) mg/dl Glucose 398 H* 198 H (70-99(Fasting)) mg/dl Calcium 9.3 9.2 (8.6-10.3) mg/dl AST 18 (13-39) U/L ALT 23 (7-52) U/L Alkaline Phosphatase 68 (34-104) U/L Total Protein 6.7 (6.0-8.3) gm/dl Albumin 3.7 (3.4-5.0) gm/dl Intake and Output 09/30/24 10/01/24 10/01/24 22:59 06:59 14:59 Intake Total 250 / 370 120 / 370 Output Total 1800 / 1800 Balance 250 / 370 120 / 370 -1800 / -1800 Intake: IV 250 / 250 Acetaminophen 1,000 mg In 100 100 / 100 ml @ 400 mls/hr IV NOW STA Rx#: [id number] Albumin 25% 12.5 gm In 50 ml @ 50 / 50 50 mls/hr IV ONE ONE Rx#: [id number] Magnesium Sulfate / D5w 1 gm In 100 / 100 100 ml @ 50 mls/hr IV ONE ONE Rx#:[id number] Oral 120 / 120 Output: Urine 1800 / 1800 Other: Weight 154.675 kg Weight Measurement Method Built in [facility]
--- OUTSIDE RECORDS SUMMARY | 2024-10-01 11:32 | External Medical Summary | Summary of Care ---
Author Name Unknown Organization [facility] Address [address] [place] [address] Phone [phone] Care Team Providers Care Glove Pairer Name Role Phone Velasquez Valencia MD Primary Care Provider [phone] Reason for Visit * Reason Onset Date Comments Appointment 09/18/2024 Cardiology Encounter Details Date Type Department Care Team (Latest Contact Info) Description 09/18/2024 Pet Nutrition Specialist Telephone Care Coordination and Integration [address] [place] [address] Aditi Treadwell, NEPTALI [address] [place] [address] Appointment (Cardiology) Allergies Active Allergy Reactions Criticality Noted Date Comments Pioglitazone 07/19/2024 Cefaclor Unknown 07/26/2018 As child Empagliflozin Other (Please comment) 05/16/2021 DKA with hospitalization Nsaids High 04/19/2019 Gastric problems Other Reaction(s): gastroparesis, kidney problems, use with caution : hx esophagus damage documented as of this encounter (statuses as of 09/25/2024) Medications Polyethylene Glycol 3350 17 GM Oral Packet (Miralax) Mix 1 Packet in 4 to 8 ounces of any beverage and drink by mouth in the morning. 14 Each 11/05/2023 11:40 AM EST Active Ondansetron HCl 4 MG Oral Tablet Take 1 Tablet by mouth every 8 hours as needed for Nausea. 20 Tablet 11/05/2023 11:40 AM EST 4 Active BD Pen Needle Short U/F 31G X 8 MM (Insulin Pen Needle)Indicat ions:Type 2 diabetes mellitus with hemoglobin A1c goal of less than 7.0% (HCC) Use to inject insulin 5 times daily 500 Each 3 07/31/2024 8:17 AM EDT 4 Active Additional Information Patient not taking.Reported on 09/22/2024 Polyethylene Glycol 3350 17 GM/SCOOP Oral Powder (Miralax) Take 1 scoop daily in 8 ounces of water. 510 g 5 4 Active OneTouch Verio In Vitro Strip (Glucose Blood)Indicati ons:Type 2 diabetes mellitus with hemoglobin A1c goal of less than 7.0% (HCC) Use to check blood sugar once daily as needed 100 Strip 05/10/2024 5:28 PM EDT 4 Active Additional Information Patient not taking.Reported on 09/22/2024 OneTouch Delica Lancets 33GIndications :Type 2 diabetes mellitus with hemoglobin A1c goal of less than 7.0% (HCC) Use to check blood sugars once daily as needed 100 Each 05/10/2024 5:28 PM EDT 4 Active Additional Information Patient not taking.Reported on 09/22/2024 Dexcom G6 SensorIndicati ons:Type 2 diabetes mellitus with hemoglobin A1c goal of less than 7.0% (HCC) Use as directed every 10 days. 9 Each 5 09/21/2024 11:52 AM EST 4 Active Dexcom G6 TransmitterInd ications:Type 2 diabetes mellitus with hemoglobin A1c goal of less than 7.0% (HCC) Use as directed. Change every 90 days 1 Each 5 07/20/2024 9:12 AM EDT 4 Active Omnipod 5 [id number] Pods Gen 5Indications:T ype 2 diabetes mellitus with hemoglobin A1c goal of less than 7.0% (HCC) Use as directed. Change pod every 2 days 45 Each 3 08/18/2024 6:12 PM EDT 4 Active Insulin Aspart 100 UNIT/ML Injection Solution (NovoLOG)Indic ations:Type 2 diabetes mellitus with hemoglobin A1c goal of less than 7.0% (HCC) Inject up to 120 units daily using Omnipod 5 120 mL 4 08/22/2024 3:39 PM EST 4 Active Additional Information Patient not taking.Reported on 09/22/2024 Haloperidol 1 MG Oral Tablet (Haldol) Take 1 Tablet by mouth 4 times a day as needed. 4 Active Omeprazole 40 MG Oral Capsule Delayed Release (PriLOSEC) Take 1 Capsule by mouth in the morning. 90 Capsule 3 4 Active Dicyclomine HCl 10 MG Oral Capsule (Bentyl) Take 1 Capsule by mouth 4 times a day as needed for Diarrhea. Active Aspirin 81 MG Oral Tablet Delayed Release (Aspirin EC Low Dose) Take 1 Tablet by mouth in the morning. Active Atorvastatin Calcium 20 MG Oral Tablet (Lipitor) Take 1 Tablet by mouth daily. Active Famotidine 20 MG Oral Tablet (Pepcid) Take 1 Tablet by mouth at bedtime. Active Losartan Potassium 50 MG Oral Tablet (Cozaar) Take 1 Tablet by mouth in the morning and 1 Tablet before bedtime. Active Metoprolol Succinate 50 MG Oral Capsule ER 24 Hour Sprinkle Take 1 Tablet by mouth in the morning and 1 Tablet before bedtime. Active Spironolactone 25 MG Oral Tablet (Aldactone) Take 1 Tablet by mouth in the morning. Active Terazosin HCl 1 MG Oral Capsule (Hytrin) Take 1 Capsule by mouth at bedtime. Active Torsemide 10 MG Oral Tablet (Demadex) Take 2 Tablets by mouth in the morning. Active Omnipod 5 [id number] Intro Gen 5 KitIndications :Type 2 diabetes mellitus with hemoglobin A1c goal of less than 7.0% (HCC) Use as directed- bring this to visit on Sep 18 Kit 08/25/2024 1:11 PM EST 4 09/21/20 24 Discontin ued(Medic ation List Clean Up) documented as of this encounter (statuses as of 09/25/2024) Active Problems Problem Noted Date Diagnosed Date [...] as of this encounter (statuses as of 09/25/2024) Resolved Problems Problem Noted Date Diagnosed Date [...] as of this encounter (statuses as of 09/25/2024) Immunizations Name Administration Dates Next Due COVID-19 mRNA, LNP-s, No Pre serve, 2-Dose Series (Pfizer) 10/21/2021,03/01/2021,02/07/2021 H1N1 2009 Influenza, IM 11/04/2009 Pneumococcal Conjugate Vacci ne, 20-valent ([id number]) 07/09/2023 Pneumococcal Polysaccharide PPV23 (Pneumovax) 11/03/2015,02/09/2006 Seasonal [...] Passive Smoke Exposure: Current Smokeless Tobacco: Never Alcohol Use Standard Drinks/Week [...] No 08/15/2024 Does the household have a [facility] source of income? (Household - [...] encounter Miscellaneous Notes * Telephone Encounter - Aditi Treadwell RN - 09/19/2024 12:08 PM EST Per review of [facility], patient has been scheduled for the Nuclear Medicine test on 10/09/2024. Aditi Treadwell RN, [facility] Pet Nutrition Specialist [phone] * Telephone Encounter - Vijay De La Vega OSA - 09/18/2024 3:45 PM EST Sent TE to central scheduling for the NM testing once scheduled, will schedule the FU * Telephone Encounter - Aditi Treadwell RN - 09/18/2024 3:34 PM EST Patient was recommended to undergo a nuclear stress test following his recent hospitalization at [facility] from 09/16/2024 to 09/17/2024 due to chest pain. He was also recommended to follow up with Cardiology. Please contact patient to schedule a nuclear stress test as well as a follow up appointment with Cardiology. Thanks, Aditi Treadwell RN, BSN Float Pet Nutrition Specialist [phone] documented in this encounter Plan of Treatment Upcoming Encounters Date Type Department Care Team (Latest Contact Info) Description 4 7:45 AM EST Appointment Radiology, [facility] [address] [place] [address] 4 9:40 AM EST Office [facility], [place] [facility] [address] [facility] [phone] [place], [facility] [address] [facility] [address] 5 11:00 AM EST Hospital Encounter [facility], Endoscopy [address], [address], [address] [place] [address] Bipin Moss MD [address] [place] [address] 5 11:00 AM EST - 5 12:30 PM EST Surgery ENDO [facility], Endoscopy [address], [address], [address] [place] [address] Bipin Moss MD [address] [place] [address] ESOPHAGOGASTRODUODENOSCOPY (EGD), FLEXIBLE, TRANSORAL, DIAGNOSTIC 5 8:00 AM EST Office Visit Cardiology, [facility] [address] [facility] [place] [address] Sweta Loving CRNP [address] [facility] [address] 5 8:40 AM EST Office Visit Nutrition & Weight Management, [facility] [address] [facility] [place] [address] Thao Lemus PA-C [address] [facility] [place] [address] 5 9:30 AM EST Nurse Only Nutrition & Weight Management, [facility] [address] [facility] [place] [address] [place], Nutrition Ed Class 1 [facility] [address] [facility] [place] [address] 5 8:00 AM EST Office Visit Family [facility] [address] [facility] [phone] Velasquez Valencia MD [address] [facility] [address] 5 9:30 AM EDT [facility] [address] [facility] [place] [address] 5 10:00 AM EDT Office Visit Pulmonary Medicine, [address] [place] [address] Vishal Wallace MD [address] [facility] [address] Scheduled Procedures Name Priority Associated Diagnoses Date/Ti [...] 2024 10/21/2021, 03/01/2021, 02/07/2021 Diabetic Foot Exam 09/29/2024 07/09/2023, 0 03/07/2021, 11/27/2019, Additional history exists Postponed from 07/09/2024 (Patient Declined After Education) HbA1c 11/09/2024 05/09/2024, 02/16, 01/14/2024, Additional history exists Albumin/Creatinine Ratio 01/13/2025 024, 01/05/2023, 09/01/2021, Additional history exists Depression Screening 04/19/2025 04/19/2024 DISCUSS TOBACCO CESSATION (REFER TO SMARTSET #3291) 07/19/2025 07/19/2024, 10/16/2022 GFR 08/02/2025 08/02/2024, 07/18, 07/19/2024, Additional history exists O2 ASSESSMENT COMPLETED IN PAST YEAR FOR COPD 08/02/2025 08/02/2024 Diabetic Eye Exam 09/22/2025 07/28/2023, , 07/22/2023, Additional history exists Postponed from 07/28/2024 (Unavailable) DTap/Tdap Vaccines (2 - Td or Tdap) [...] this encounter Medical Devices Implanted Type Area Pile Driving Supervisor Device Identifier Shelf Expiration Date Model / Serial / Lot Suture Pryor Dbl Load 4.75mm - [id number] Implanted:Qty: 1 on 12/01/2019 by Judith Condon, at OR [facility] Right: Shoulder [employer] 07/17/2021 AR-[id number] -2 / / [id number] Suture Pryor Dbl Load 5.5mm - [id number] Implanted:Qty: 1 on 12/01/2019 by Judith Condon, at OR [facility] Right: Shoulder [employer] 09/16/2021 [id number] -2 / / [id number] documented as of this encounter Advance Directives [...] Advance Directives occurred with: Patient Care Teams Glove Pairer Relationship Specialty Start Date End Date Velasquez Valencia MD [address] [place] [facility] [place] [address] PCP - General Family Medicine 09/09/22 documented as of this encounter
--- OUTSIDE RECORDS SUMMARY | 2024-10-01 11:33 | External Medical Summary | Summary of Care ---
Author Name Unknown Organization [facility] Address [address] [place] [address] Phone [phone] Care Team Providers Care Automotive Engineering Teacher Name Role Phone Velasquez Valencia MD Primary Care Provider +- [phone] Reason for Referral * Evaluate & Treat - Unlimited Visits (Within 10 days (routine)) - Authorized Specialty Diagnoses / Procedures Referred By Bismark brown Referred To Contact Sleep Medicine / Sleep Disorders Diagnoses Obstructive sleep apnea Morbid obesity (HCC) Velasquez Valencia MD [address] [place] [address] Phone: tel: fax: Referral ID Status Reason Start Date Expiration Date Visits Requested Visits Authorized [id number] Authorized Specialty Services Required 09/18/2024 2 2 Question Answer Referral Priority Within 10 days (routine) Where should this appointment be scheduled? [facility] SLEEP MED ADULT REFERRAL Sleep Apnea Testing and Management Does the patient snore and/or gasp at night or has been told they stop breathing at night? Unknown Comments Patient has a CPAP machine, but has not used it in at least a year. Will likely need another sleep study to make appropriate setting adjustments. Also interested in Inspire alternative to CPAP. Reason for Visit * Reason Onset Date Comments Referral 09/18/2024 Sleep Medicine Encounter Details Date Type Department Care Team (Latest Contact Info) Description 09/18/2024 Label Pinker Telephone Care Coordination and Integration [address] [place] [address] Aditi Treadwell, NEPTALI [address] [place] [address] Referral (Sleep Medicine) Allergies Active Allergy Reactions Criticality Noted Date Comments Pioglitazone 07/19/2024 Cefaclor Unknown 07/26/2018 As child Empagliflozin Other (Please comment) 05/16/2021 DKA with hospitalization Nsaids High 04/19/2019 Gastric problems Other Reaction(s): gastroparesis, kidney problems, use with caution : hx esophagus damage documented as of this encounter (statuses as of 09/18/2024) Medications Polyethylene Glycol 3350 17 GM Oral [...] 3 07/31/2024 8:17 AM EDT 4 Active Polyethylene Glycol 3350 17 GM/SCOOP Oral Powder (Miralax) Take 1 scoop daily in 8 ounces of water. 510 g 5 4 Active Additional Information Patient not taking.Reported on 09/06/2024 OneTouch Verio In Vitro Strip (Glucose Blood)Indicatio ns:Type 2 diabetes mellitus with hemoglobin A1c goal of less than 7.0% ([facility]) Use to check blood sugar once daily as needed 100 Strip 05/10/2024 5:28 PM EDT 4 Active OneTouch Delica Lancets 33GIndications: Type 2 diabetes mellitus with hemoglobin A1c goal of less than 7.0% ([facility]) Use to check blood sugars once daily as needed 100 Each 05/10/2024 5:28 PM EDT 4 Active Dexcom G6 SensorIndicatio ns:Type 2 diabetes mellitus with hemoglobin A1c goal of less than 7.0% (HCC) Use as directed every 10 days. 9 Each 5 07/20/2024 10:09 AM EDT 4 Active Dexcom G6 TransmitterIndi cations:Type 2 diabetes mellitus with hemoglobin A1c goal of less than 7.0% (HCC) Use as directed. Change every 90 days 1 Each 5 07/20/2024 9:12 AM EDT 4 Active Omnipod 5 [id number] Intro Gen 5 KitIndications: Type 2 diabetes mellitus with hemoglobin A1c goal of less than 7.0% (HCC) Use as directed- bring this to visit on Sep 18 1 Kit 08/25/2024 1:11 PM EST 4 Active Omnipod 5 [id number] Pods Gen 5Indications:Ty pe 2 diabetes mellitus [...] Active Haloperidol 1 MG Oral Tablet (Haldol) Take [...] Tablets by mouth in the morning. Active documented as of this encounter (statuses as of 09/18/2024) Active Problems Problem Noted Date Diagnosed Date [...] as of this encounter (statuses as of 09/18/2024) Resolved Problems Problem Noted Date Diagnosed Date [...] as of this encounter (statuses as of 09/18/2024) Immunizations Name Administration Dates Next Due COVID-19 mRNA, LNP-s, No Pre serve, 2-Dose Series ([employer]) 10/21/2021,03/01/2021,02/07/2021 H1N1 2009 Influenza, IM 11/04/2009 Pneumococcal Conjugate Vacci ne, 20-valent ([id number]) 07/09/2023 Pneumococcal Polysaccharide PPV23 (Pneumovax) 11/03/2015,02/09/2006 Seasonal [...] of Assessment Author No 04/10/2024 9:27 PM EDAlicia Diaz RN * Do you have serious difficulty walking or climbing stairs? (5 years old or older) Answer Date of Assessment Author Yes 04/10/2024 9:27 PM Alicia Lazaro RN * Do you have difficulty dressing or bathing? (5 years old or older) Answer Date of Assessment Author Yes 04/10/2024 9:27 PM EDAlicia Diaz RN * Because of a physical, mental, [...] Alicia Lazaro RN documented in this encounter Miscellaneous Notes * Telephone Encounter - Nely Randhawa OSA - 09/18/2024 4:06 PM EST LMOM to schedule Sleep Med referral. 09/18/2024 * Telephone Encounter - Velasquez Valencia MD - 09/18/2024 3:59 PM EST Referral signed - please assist with sleep med appt * Telephone Encounter - Aditi Treadwell RN - 09/18/2024 3:41 PM EST Patient reports having a CPAP but has not used it in at least the past year if not longer as it is uncomfortable. Notes he would be interested in a follow up appointment with Sleep Medicine for setting adjustments and also expressed interest in the Inspire alternative to a CPAP machine. If you agree, please sign the pended Sleep Medicine referral. Thanks, Aditi Treadwell RN, BSN Float Label Pinker [phone] documented in this encounter Plan of Treatment Upcoming Encounters Date Type Department Care Team (Latest Contact Info) Description 4 11:30 AM EST Telemedicine Pharmacy, [place] [phone] [place] [address] [facility] [address] 4 11:30 AM EST Telemedicine Pharmacy, [place] [phone] [facility] [address] [facility] [place] [address] 4 10:00 AM EST Office Visit Family Practice, [facility] C[place] [place] [phone] Velasquez Valencia MD [address] [place] [address] 4 7:45 AM EST Appointment Radiology, [address], [place] [address] 4 9:40 AM EST Office Visit Pharmacy, [address] [place] [phone] [facility] [address] [facility] [address] 5 11:00 AM EST Hospital Encounter [facility], Endoscopy Suite, HFAM 1, [address] [place] [facility] [place] [address] Bipin Moss MD [address] [place] [address] 5 11:00 AM EST - 5 12:30 PM EST Surgery ENDO [facility], Endoscopy Suite, HFAM 1, [address] [facility] [place] [address] Bipin Moss MD [address] [place] [address] ESOPHAGOGASTRODUODENOSCOPY (EGD), FLEXIBLE, TRANSORAL, DIAGNOSTIC 5 8:40 AM EST Office Visit Nutrition & Weight Management, [facility] [address] [place] [address] Thao Lemus PA-C 132 [facility] [place] [address] 5 9:30 AM EST Nurse Only Nutrition & Weight Management, [facility] [address] [place] [address] Funk, Nutrition Ed Class 1 [facility] [address] [place] [address] 5 8:00 AM EST Office Visit [facility] Rosie Cedillo [address] [place] [phone] Velasquez Valencia MD [address] [facility] [place] [address] 5 9:30 AM EDT Imaging Radiology [facility] 132 [facility] [place] [address] 5 10:00 AM EDT Office Visit Pulmonary Medicine, [facility] 132 [facility] [place] [address] Vishal Wallace MD [address] [facility] [place] [address] Scheduled Procedures Name Priority Associated Diagnoses Date/Ti me ESOPHAGOGASTRODUODENOSCOPY ( EGD), FLEXIBLE, TRANSORAL, DIAGNOSTIC Pain of upper abdomen 10/26/2024 11:00 AM EST ESOPHAGOGASTRODUODENOSCOPY ( EGD), FLEXIBLE, TRANSORAL, ENDOSCOPIC ULTRASOUND Pain of upper abdomen 10/26/2024 11:00 AM EST COLONOSCOPY FLEXIBLE PROXIMA L DIAGNOSTIC Recall Screening for colon cancer Scheduled Referrals Name Type Priority Associated Diagnoses Orde r Schedule SLEEP MEDICINE REFERRAL OP Referral Within 10 days (routine) Obstructive sleep apnea Morbid obesity (HCC) Ordered: 09/18/2024 Health Maintenance Due Date Last Done Comments [...] 07/28/2024 07/28/2023, , 07/22/2023, Additional history exists HbA1c 11/09/2024 05/09/2024, 0510/2023, 01/14/2024, Additional history exists Albumin/Creatinine Ratio 01/13/2025 024, 01/05/2023, 09/01/2021, Additional history exists Depression Screening 04/19/2025 04/19/2024 DISCUSS TOBACCO CESSATION (REFER TO SMARTSET #5591) 07/19/2025 07/19/2024, 10/16/2022 GFR 08/02/2025 08/02/2024, 07/18, [...] encounter Medical Devices Implanted Type Area Product Planner Device Identifier Shelf Expiration Date Model / Serial / Lot Suture [place] Dbl Load 4.75mm - [id number] Implanted:Qty: 1 on 12/01/2019 by Judith Condon, [facility] Right: Shoulder [employer] 07/17/2021 AR-2324BCT -2 / / [id number] Suture [place] Dbl Load 5.5mm - [id number] Implanted:Qty: 1 on 12/01/2019 by Judith Condon DO at OR [facility] Right: Shoulder [employer] 09/16/2021 AR-2323BCT -2 / / [id number] documented as of this encounter Visit Diagnoses Diagnosis Obstructive sleep apnea- Primary Obstructive sleep apnea (adult) (pediatric) Morbid obesity (HCC) Morbid obesity Pain of upper abdomen Abdominal pain, other [...] Advance Directives occurred with: Patient Care Teams Automotive Engineering Teacher Relationship Specialty Start Date End Date Velasquez Valencia MD [address] [place] [address] PCP - General Family Medicine 09/09/22 documented as of this encounter
--- OUTSIDE RECORDS SUMMARY | 2024-10-01 11:33 | External Medical Summary | Summary of Care ---
Author Name Unknown Organization [facility] Address [address] [facility] [place] [address] Phone [phone] Care Team Providers Care Hazmat Truck Driver Name Role Phone Velasquez Valencia MD Primary Care Provider +1- [phone] Reason for Visit * Reason Comments Dosage Adjustment Via Phone (anticoag Cl inic) Insulin Pump Encounter Details Date Type Department Care Team (Late st Contact Info) Description 09/21/2024 11:30 AM EST Telemedicine Pharmacy, [facility] [address] [place] [address] [place], [facility] [address] [place] [address] Type 2 diabetes mellitus with hemoglobin A1c goal of less than 7.0% ([facility])* Allergies Active Allergy Reactions Criticality Noted Date Comments Pioglitazone 07/19/2024 Cefaclor Unknown 07/26/2018 As child Empagliflozin Other (Please comment) 05/16/2021 DKA with hospitalization Nsaids High 04/19/2019 Gastric problems Other Reaction(s): gastroparesis, kidney problems, use with caution : hx esophagus damage documented as of this encounter (statuses as of 09/21/2024) Medications Polyethylene Glycol 3350 17 GM Oral [...] 9:12 AM EDT 4 Active Omnipod 5 [id number] Pods Gen 5Indications:Ty pe 2 diabetes mellitus with hemoglobin A1c goal of less than 7.0% (HCC) Use as directed. Change pod every 2 days 45 Each 3 08/18/2024 6:12 PM EDT 4 Active Insulin Aspart 100 UNIT/ML Injection Solution (NovoLOG)Indica tions:Type 2 diabetes mellitus with hemoglobin A1c goal of less than 7.0% ([facility]) Inject up to 120 units daily using Omnipod 5 120 mL 4 08/22/2024 3:39 PM EST Active Haloperidol 1 MG [...] as of this encounter (statuses as of 09/21/2024) Active Problems Problem Noted Date Diagnosed Date [...] as of this encounter (statuses as of 09/21/2024) Resolved Problems Problem Noted Date Diagnosed Date [...] as of this encounter (statuses as of 09/21/2024) Immunizations Name Administration Dates Next Due COVID-19 mRNA, LNP-s, No Pre serve, 2-Dose Series ([employer] 10/21/2021,03/01/2021,02/07/2021 H1N1 2009 Influenza, IM 11/04/2009 Pneumococcal Conjugate Vacci ne, 20-valent ([id number]) 07/09/2023 Pneumococcal Polysaccharide PPV23 (Pneumovax) 11/03/2015,02/09/2006 Seasonal [...] No 08/15/2024 Does the household have a [facility] children's hospitalr source of income? (Household - for [...] this encounter Progress Notes * Gisel Butler [facility] - 09/21/2024 10:20 AM EST [facility] 72 hour insulin pump start follow up Patient Phone Numbers Spoke to patient via phone. Last 72 hour (s) of dexcom: BG levels elevated, but some improvement with average sugar now 235 (was 270 before we started pump). He has been able to change his pod successfully twice now-- indicative of changing a pod every ~24h. I will need to set up patient's pump to share to hernesto so that I can see his daily insulin use andensure that he is bolusing appropriately. I asked patient to start doing 70 g of carbs for any meal. Follow up 10/13 for first inperson download. Gisel Butler, PharmD, BCACP Clinical Pharmacist Medication Therapy Disease Management 09/21/2024, 10:20 AM documented in this encounter Plan of Treatment Upcoming Encounters Date Type Department Care Team (Latest Contact Info) Description 4 10:00 AM EST [facility] [address] [place] [phone] Velasquez Valencia MD [address] [place] [address] 4 7:45 AM EST Appointment Radiology, [address] [place] [address] 4 9:40 AM EST Office Visit Pharmacy, [place] Wallace [address] [place] [phone] [facility] [address] [place] [address] 5 11:00 AM EST Hospital Encounter [facility], Endoscopy Suite, HFAM 1, [address] [place] [address] Bipin Moss MD [address] [place] [address] 5 11:00 AM EST - 5 12:30 PM EST Surgery [facility], Endoscopy Suite, HFAM 1, [address] [place] [address] Bipin Moss MD [address] [place] [address] ESOPHAGOGASTRODUODENOSCOPY (EGD), FLEXIBLE, TRANSORAL, DIAGNOSTIC 5 8:00 AM EST Office Visit Cardiology, [facility] 132 [facility] [place] [address] Sweta Loving CRNP [address] [place] [address] 5 8:40 AM EST Office Visit Nutrition & Weight Management, [facility] 132 [facility] [place] [address] Thao Lemus PA-C 132 [facility] [place] [address] 5 9:30 AM EST Nurse Only Nutrition & Weight Management, [facility] 132 [facility] [place] [address] Funk, Nutrition Ed Class 1 [facility] 132 [facility] [place] [address] 5 8:00 AM EST Office Visit Family [facility], [place] [facility] [address] [facility] [place] [phone] Velasquez Valencia MD [address] [place] [address] 5 9:30 AM EDT Imaging Radiology [facility] [address] [facility] 132 [facility] [place] [address] 5 10:00 AM EDT Office Visit Pulmonary Medicine, [facility] 132 [facility] [place] [address] Vishal Wallace MD [address] [facility] [place] [address] Scheduled Procedures Name Priority Associated Diagnoses Date/Ti [...] 07/22/2023, Additional history exists HbA1c 11/09/2024 05/09/2024, 02/16, 01/14/2024, Additional history exists Albumin/Creatinine Ratio 01/13/2025 024, 01/05/2023, 09/01/2021, Additional history exists Depression Screening 04/19/2025 04/19/2024 DISCUSS TOBACCO CESSATION (REFER TO SMARTSET #8751) 07/19/2025 07/19/2024, 10/16/2022 GFR 08/02/2025 08/02/2024, 07/18, [...] encounter Medical Devices Implanted Type Area Bilingual Call Center Representative Device Identifier Shelf Expiration Date Model / Serial / Lot Suture [place] Dbl Load 4.75mm - [id number] Implanted:Qty: 1 on 12/01/2019 by Judith Condon DO at OR [facility] Right: Shoulder [employer] 07/17/2021 AR-2324BCT -2 / / [id number] Suture [place] Dbl Load 5.5mm - [id number] Implanted:Qty: 1 on 12/01/2019 by Judith Condon DO at OR [facility] Right: Shoulder [employer] 09/16/2021 AR-2323BCT -2 / / [id number] documented as of this encounter Visit Diagnoses Diagnosis Type 2 diabetes mellitus with hemoglobin A1c goal of less than 7.0% ([facility])- Primary Pain of upper abdomen Abdominal pain, [...] Advance Directives occurred with: Patient Care Teams Hazmat Truck Driver Relationship Specialty Start Date End Date Velasquez Valencia MD [address] [place] [address] PCP - General Family Medicine 09/09/22 documented as of this encounter
--- OUTSIDE RECORDS SUMMARY | 2024-10-01 11:33 | External Medical Summary | Summary of Care ---
Author Name Unknown Organization [facility] Address [address] [place] [address] Phone [phone] Care Team Providers Care Precinct I Police Sergeant Name Role Phone Velasquez Valencia MD Primary Care Provider +1- [phone] Reason for Referral * Evaluate & Treat - Unlimited Visits (Within 10 days (routine)) - Authorized Specialty Diagnoses / Procedures Referred By Bismark brown Referred To Contact Sleep Medicine / Sleep Disorders Diagnoses Obstructive sleep apnea Morbid obesity (HCC) Velasquez Valencia MD [address] [place] [address] Phone: tel: fax: Referral ID Status Reason Start Date Expiration Date Visits Requested Visits Authorized [id number] Authorized Specialty Services Required 09/18/2024 2 2 Question Answer Referral Priority Within 10 days (routine) Where should this appointment be scheduled? [facility] SLEEP MED ADULT REFERRAL Sleep Apnea Testing [...] Care Team (Latest Contact Info) Description 09/18/2024 Oil Spraying Machine Operator Telephone Care Coordination and Integration [address] [place] [address] Aditi Treadwell, RN [address] [place] [address] Referral (Sleep Medicine) Allergies Active Allergy Reactions [...] 09/06/2024 OneTouch Verio In Vitro Strip (Glucose Blood)Indicati ons:Type 2 diabetes mellitus with hemoglobin A1c goal of less than 7.0% (HCC) Use to check blood sugar once daily as needed 100 Strip 05/10/2024 5:28 PM EDT 4 Active OneTouch Delica Lancets 33GIndications :Type 2 diabetes mellitus with hemoglobin A1c goal of less than 7.0% ([facility]) Use to check blood sugars once daily as needed 100 Each 05/10/2024 5:28 PM EDT 4 Active Dexcom G6 SensorIndicati ons:Type 2 diabetes mellitus [...] 9:12 AM EDT 4 Active Omnipod 5 WmuX5P0 Pods Gen 5Indications:T ype 2 diabetes mellitus [...] mouth in the morning. Active Omnipod 5 CduY7A3 Intro Gen 5 KitIndications :Type 2 diabetes mellitus with hemoglobin A1c goal of less than 7.0% ([facility]) Use as directed- bring this to visit on Sep 18 1 Kit 08/25/2024 1:11 PM EST 4 09/21/20 [...] IM 11/04/2009 Pneumococcal Conjugate Vacci ne, 20-valent ([id number]) 07/09/2023 Pneumococcal Polysaccharide PPV23 (Pneumovax) 11/03/2015,02/09/2006 Seasonal [...] do you feel lonely or isolated from ose around you? Never 08/15/2024 Financial Resource [...] Telephone Encounter - Nely Randhawa OSA - 09/21/2024 4:08 PM EST Patient will call next week to schedule. 09/21/2024 * Telephone Encounter - Nely Randhawa OSA [...] referral. Thanks, Aditi Treadwell RN, BSN Float Oil Spraying Machine Operator [phone] documented in this encounter Plan of Treatment Upcoming Encounters Date Type Department Care Team (Latest Contact Info) Description 4 10:00 AM EST Office Visit [facility] [address] [facility] [place] [phone] Velasquez Valencia MD [address] [facility] [place] [address] 4 7:45 AM EST Appointment Radiology, [address] [place] [address] 4 9:40 AM EST Office Visit Pharmacy [place] [facility] [address] [facility] [place] [phone] [address] [address] 5 11:00 AM EST Hospital Encounter [facility], Endoscopy Suite, AM 1, [address] [place] [facility] [place] [address] Bipin Moss MD [address] [place] [address] 5 11:00 AM EST - 5 12:30 PM EST Surgery ENDO [facility], Endoscopy Suite, HFAM 1, [address] [place] [address] Bipin Moss MD [address] [place] [address] ESOPHAGOGASTRODUODENOSCOPY (EGD), FLEXIBLE, TRANSORAL, DIAGNOSTIC 5 8:00 AM EST Office Visit Cardiology, [facility] 132 [facility] [place] [address] Sweta Loving CRNP [address] [place] [address] 5 8:40 AM EST Office Visit Nutrition & Weight Management, [facility] 132 [facility] [place] [address] Thao Lemus PA-C 132 [facility] [place] [address] 5 9:30 AM EST Nurse Only Nutrition & Weight Management, [facility] 132 [facility] [place] [address] Funk, Nutrition Ed Class 1 [facility] 132 [facility] [place] [address] 5 8:00 AM EST Office Visit [facility] 226 [facility] [place] [phone] Velasquez Valencia MD 226 [facility] [place] [address] 5 9:30 AM EDT Imaging Radiology [facility] 132 [facility] [place] [address] 5 10:00 AM EDT Office Visit Pulmonary Medicine, [facility] 132 [facility] [place] [address] Vishal Wallace MD [address] [facility] [place] [address] Scheduled Procedures Name Priority Associated Diagnoses Date/Ti [...] 07/22/2023, Additional history exists HbA1c 11/09/2024 05/09/2024, 05/10/2023, 01/14/2024, Additional history exists Albumin/Creatinine Ratio 01/13/2025 024, 01/05/2023, 09/01/2021, Additional history exists Depression Screening 04/19/2025 04/19/2024 DISCUSS TOBACCO CESSATION (REFER TO SMARTSET #8041) 07/19/2025 07/19/2024, 10/16/2022 GFR 08/02/2025 08/02/2024, 07/18, [...] this encounter Medical Devices Implanted Type Area Long Term Care Social Worker Device Identifier Shelf Expiration Date Model / Serial / Lot Suture [place] Dbl Load 4.75mm - [id number] Implanted:Qty: 1 on 12/01/2019 by Judith Condon, DO [facility] Right: Shoulder [employer] 07/17/2021 AR-2324BCT -2 / / [id number] Suture [place] Dbl Load 5.5mm - [id number] Implanted:Qty: 1 on 12/01/2019 by Judith Condon DO at OR [facility] Right: Shoulder [employer] 09/16/2021 AR-2323BCT -2 / / [id number] documented as of this encounter Visit Diagnoses [...] Advance Directives occurred with: Patient Care Teams Precinct I Police Sergeant Relationship Specialty Start Date End Date Velasquez Valencia MD [address] [place] [address] PCP - General Family Medicine 09/09/22 documented as of this encounter
--- OUTSIDE RECORDS SUMMARY | 2024-10-01 11:33 | External Medical Summary | Summary of Care ---
Author Name Unknown Organization [facility] Address [address] [facility] [place] [address] Phone [phone] Care Team Providers Care Underwriting Specialist Name Role Phone Velasquez Valencia MD Primary Care Provider +- [phone] Reason for Referral * Precert (Within 10 days (routine)) - Authorized Specialty Diagnoses / Procedures Referred By Bismark brown Referred To Contact Radiology Diagnoses Chest pain, unspecified type Type 2 diabetes mellitus with hemoglobin A1c goal of less than 7.0% ([facility]) Body mass index (BMI) of 40.0 to 44.9 in adult ([facility]) Tobacco use disorder Dyslipidemia HTN, goal below 130/80 Procedures NM MYOCARD PERF IMG SPECT MULT STUDIES WITH PHARM INTERV [facility] Willson [facility] [place] [address] Phone: tel: fax: Referral ID Status Reason Start Date Expiration Date V isits Requested Visits Authorized [id number] Authorized Precert 09/17/2024 [id number] Encounter Details Date Type Department Care Team (Late st Contact Info) Description 09/17/2024 Telephone CardiologyJerzy [address] [place] [address] [facility] [place] [address] Allergies Active Allergy Reactions Criticality Noted Date Comments Pioglitazone 07/19/2024 Cefaclor Unknown 07/26/2018 As child Empagliflozin Other (Please comment) 05/16/2021 DKA with hospitalization Nsaids High 04/19/2019 Gastric problems Other Reaction(s): gastroparesis, kidney problems, use with caution : hx esophagus damage documented as of this encounter (statuses as of 09/20/2024) Medications Polyethylene Glycol 3350 17 GM Oral [...] 9:12 AM EDT 4 Active Omnipod 5 [id number] Intro Gen 5 KitIndications: Type 2 diabetes mellitus with hemoglobin A1c goal of less than 7.0% (HCC) Use as directed- bring this to visit on Sep 18 1 Kit 08/25/2024 1:11 PM EST 4 Active Omnipod 5 [id number] Pods Gen 5Indications:Ty pe 2 diabetes mellitus [...] as of this encounter (statuses as of 09/20/2024) Active Problems Problem Noted Date Diagnosed Date [...] as of this encounter (statuses as of 09/20/2024) Resolved Problems Problem Noted Date Diagnosed Date [...] as of this encounter (statuses as of 09/20/2024) Immunizations Name Administration Dates Next Due COVID-19 mRNA, LNP-s, No Pre serve, 2-Dose Series (Pikanote) 10/21/2021,03/01/2021,02/07/2021 H1N1 2009 Influenza, IM 11/04/2009 Pneumococcal Conjugate Vacci ne, 20-valent ([id number]) 07/09/2023 Pneumococcal Polysaccharide PPV23 (Pneumovax) 11/03/2015,02/09/2006 Seasonal [...] Assessment Author Yes 04/10/2024 9:27 PM EDT Breita, K graciela, RN documented as of this encounter Mental Status * Because of a physical, mental, or emotional condition, do you have serious difficulty concentrating, remembering, or making decisions? (5 years old or older) Answer Entry Date Author No 04/10/2024 9:27 PM EDT Alicia Esteban RN documented in this encounter Miscellaneous Notes * Telephone Encounter - Carlota Willson CRNP - 09/17/2024 3:53 PM EST Patient unfortunately canceled his [facility] clinic appointment for tomorrow and was trying to reschedule. I encouraged him to reach out today and tomorrow early to reschedule this but please assist with getting him rescheduled his Omnipod evaluation in the near future given his uncontrolled diabetes Thank You SHY Hernandes * Telephone Encounter - Carlota Willson CRNP - 09/17/2024 3:47 PM EST Please coordinate outpatient nuclear stress test for discharge from [facility] today Also needs outpatient Cardiology follow up Does not always received messages via [employer] provided 2 phone numbers appt notification. [phone] for him or [phone] for his s/o Ni Thank you SHY Hernandes documented in this encounter Plan of Treatment Upcoming Encounters Date Type Department Care Team (Latest Contact Info) Description 4 11:30 AM EST Telemedicine Pharmacy, Sharad [address] [place] [phone] [place] [address] 4 10:00 AM EST Office Visit Family Practice, Sharad Cedillo [address] [place] [phone] Velasquez Valencia MD [address] [place] [address] 4 7:45 AM EST Appointment Radiology, [facility] 400 [facility], [place] [address] 4 9:40 AM EST Office Visit Pharmacy, [facility] 226 [facility] [address]ad[address] [place] [phone] [place] [address] 5 11:00 AM EST Hospital Encounter [facility], Endoscopy Suite, HFAM 1, [address] [place] [address] Bipin Moss MD [address] [place] [address] 5 11:00 AM EST - 5 12:30 PM EST Surgery ENDO [facility], Endoscopy Suite, HFAM 1, [address] [place] [address] Bipin Moss MD [address] [place] [address] ESOPHAGOGASTRODUODENOSCOPY (EGD), FLEXIBLE, TRANSORAL, DIAGNOSTIC 5 8:40 AM EST Office Visit Nutrition & Weight Management, [facility] [address] [facility] [place] [address] Thao Lemus PA-C [address] [place] [address] 5 9:30 AM EST Nurse Only Nutrition & Weight Management, [facility] [address] [place] [address] Funk, Nutrition Ed Class 1 [facility] [address] [place] [address] 5 8:00 AM EST Office Visit [facility] Rosie Cedillo [address] [place] [phone] Velasquez Valencia MD [address] [place] [address] 5 9:30 AM EDT Imaging [facility] [address] [place] [address] 5 10:00 AM EDT Office Visit Pulmonary Medicine, [facility] [address] [facility] [place] [address] Vishal [place] MD [address] [facility] [place] [address] Scheduled Orders Name Type Priority Associated Diagnoses Orde r Schedule NM MYOCARD PERF IMG SPECT MULT STUDIES WITH PHARM INTERV Cardiology Routine Chest pain, unspecified type Type 2 diabetes mellitus with hemoglobin A1c goal of less than 7.0% (HCC) Body mass index (BMI) of 40.0 to 44.9 in adult (HCC) Tobacco use disorder Dyslipidemia HTN, goal below 130/80 Expected: 09/17/2024 (Approximate), Expires: 10/18/2025 Scheduled Procedures Name Priority Associated Diagnoses Date/Ti [...] this encounter Medical Devices Implanted Type Area Road Hogger Operator Device Identifier Shelf Expiration Date Model / Serial / Lot Suture [place] Dbl Load 4.75mm - [id number] Implanted:Qty: 1 on 12/01/2019 by Judith Condon DO at OR [facility] Right: Shoulder [employer] 07/17/2021 AR-2324BCT -2 / / [id number] Suture [place] Dbl Load 5.5mm - [id number] Implanted:Qty: 1 on 12/01/2019 by Judith Condon DO at OR [facility] Right: Shoulder [employer] 09/16/2021 AR-2323BCT -2 / / [id number] documented as of this encounter Visit Diagnoses Diagnosis Chest pain, unspecified type- Primary Type 2 diabetes mellitus with hemoglobin A1c goal of less than 7.0% ([facility]) Body mass index (BMI) of 40.0 to 44.9 in adult ([facility]) Tobacco use disorder Dyslipidemia Other and unspecified hyperlipidemia HTN, goal below 130/80 Unspecified essential hypertension Pain of upper abdomen Abdominal pain, other [...] Advance Directives occurred with: Patient Care Teams Underwriting Specialist Relationship Specialty Start Date End Date Velasquez Valencia MD [address] [place] [address] PCP - General Family Medicine 09/09/22 documented as of this encounter
--- OUTSIDE RECORDS SUMMARY | 2024-10-01 11:33 | External Medical Summary | Summary of Care ---
Author Name Unknown Organization [facility] Address [address] [facility] [address] Phone [phone] Care Team Providers Care Party Plan Salesperson Name Role Phone Velasquez Valencia MD Primary Care Provider +1- [phone] Reason for Visit * Reason Comments Dosage Adjustment Via Phone (anticoag Cl inic) Diabetes Follow-Up Insulin Pump Encounter Details Date Type Department Care Team (Late st Contact Info) Description 09/19/2024 11:30 AM EST Telemedicine Pharmacy, [facility] [address] [place] [address] [place], [facility] [address] [place] [address] Type 2 diabetes mellitus with hemoglobin A1c goal of less than 7.0% ([facility])* Allergies Active Allergy Reactions Criticality Noted Date Comments Pioglitazone 07/19/2024 Cefaclor Unknown 07/26/2018 As child Empagliflozin Other (Please comment) 05/16/2021 DKA with hospitalization Nsaids High 04/19/2019 Gastric problems Other Reaction(s): gastroparesis, kidney problems, use with caution : hx esophagus damage documented as of this encounter (statuses as of 09/19/2024) Medications Polyethylene Glycol 3350 17 GM Oral [...] 9:12 AM EDT 4 Active Omnipod 5 [id number] Intro Gen 5 KitIndications: Type 2 diabetes mellitus with hemoglobin A1c goal of less than 7.0% (HCC) Use as directed- bring this to visit on Sep 18 1 Kit 08/25/2024 1:11 PM EST 4 Active Omnipod 5 [id number] Pods Gen 5Indications:Ty pe 2 diabetes mellitus [...] as of this encounter (statuses as of 09/19/2024) Active Problems Problem Noted Date Diagnosed Date [...] as of this encounter (statuses as of 09/19/2024) Resolved Problems Problem Noted Date Diagnosed Date [...] Overview (11/14/2009): Per HTN Taxonomy. Diabetic polyneuropathy 04/12/2007 1004/2016 Overview (01/03/2016): ICD-10 update of inactive term [...] as of this encounter (statuses as of 09/19/2024) Immunizations Name Administration Dates Next Due COVID-19 mRNA, LNP-s, No Pre serve, 2-Dose Series (MindMixer) 10/21/2021,03/01/2021,02/07/2021 H1N1 2009 Influenza, IM 11/04/2009 Pneumococcal Conjugate Vacci ne, 20-valent ([id number]) 07/09/2023 Pneumococcal Polysaccharide PPV23 (Pneumovax) 11/03/2015,02/09/2006 Seasonal [...] No 08/15/2024 Does the household have a [facility] source of income? (Household - for [...] in this encounter Progress Notes * Gisel Btuler [facility] - 09/19/2024 9:27 AM EST Images from the original note were not included. [facility] 24 hour insulin pump start follow up Patient Phone Numbers Spoke to patient via phone. Pt bolusing appropriately. No low blood sugars. Some higher readings. Reviewed what to do if BG is above 350 and not coming down: change site, change insulin, check in on symptoms, etc. Reviewed how to find carb amount on back label of foods/drinks. BG levels do look to be coming down overnight into the mid-100s range. Follow up via another phone call. Gisel Butler, PharmD, BCACP Clinical Pharmacist Medication Therapy Disease Management 09/19/2024, 11:18 AM documented in this encounter Plan of Treatment Upcoming Encounters Date Type Department Care Team (Latest Contact Info) Description 4 11:30 AM EST Telemedicine Pharmacy, Sharad Wallace [address] [place] [phone] Shraad [facility] [address] [place] [address] [place] [address] 4 10:00 AM EST Office Visit Family Practice, Sharad Cedillo [address] [place] [phone] Velasquez Valencia MD [address] [place] [address] 4 7:45 AM EST Appointment Radiology, [facility] 400 [facility], [place] [address] 4 9:40 AM EST Office Visit Pharmacy, [place] [facility] [phone] [place], [address], [place] [address] 5 11:00 AM EST Hospital Encounter [facility], Endoscopy Suite, HFAM 1, [address] [place] [address] Bipin Moss MD [address] [place] [address] 5 11:00 AM EST - 5 12:30 PM EST Surgery ENDO [facility], Endoscopy Suite, HFAM 1, [address] [place] [address] Bipin Moss MD [address] [place] [address] ESOPHAGOGASTRODUODENOSCOPY (EGD), FLEXIBLE, TRANSORAL, DIAGNOSTIC 5 8:40 AM EST Office Visit Nutrition & Weight Management, [facility] [address] [facility] [place] [address] Thao Lemus PA-C 132 [facility] [place] [address] 5 9:30 AM EST Nurse Only Nutrition & Weight Management, [facility] [address] [facility] [place] [address] Funk, Nutrition Ed Class 1 [facility] [address] [place] [address] 5 8:00 AM EST Office Visit Family Practice, [facility] 226 [facility] Mamadou [place] [phone] Velasquez Valencia MD 226 [facility] [place] [address] 5 9:30 AM EDT Imaging Radiology [facility]st [facility] [address] [facility] [place] [address] 5 10:00 AM EDT Office Visit Pulmonary Medicine, [facility] [address] [facility] [place] [address] Vishal Wallace MD [address] [facility] [place] [address] Scheduled Procedures Name Priority Associated Diagnoses Date/Ti [...] this encounter Medical Devices Implanted Type Area Players Club Representative Device Identifier Shelf Expiration Date Model / Serial / Lot Suture Clancy Dbl Load 4.75mm - [id number] Implanted:Qty: 1 on 12/01/2019 by Judith Condon DO at OR [facility] Right: Shoulder [employer] 07/17/2021 AR-2324BCT -2 / / [id number] Suture Clancy Dbl Load 5.5mm - [id number] Implanted:Qty: 1 on 12/01/2019 by Judith Condon DO at OR [facility] Right: Shoulder [employer] 09/16/2021 AR-2323BCT -2 / / [id number] documented as of this encounter Visit Diagnoses Diagnosis Type 2 diabetes mellitus with hemoglobin A1c goal of less than 7.0% ([facility])- Primary Pain of upper abdomen [...] Advance Directives occurred with: Patient Care Teams Party Plan Salesperson Relationship Specialty Start Date End Date Velasquez Valencia MD [address] [place] [address] PCP - General Family Medicine 09/09/22 documented as of this encounter
--- OUTSIDE RECORDS SUMMARY | 2024-10-01 11:33 | External Medical Summary | Summary of Care ---
Author Name Unknown Organization [facility] Address [address] [facility] [place] [address] Phone [phone] Care Team Providers Care Heel Scorer Name Role Phone Velasquez Valencia MD Primary Care Provider +1- [phone] Reason for Visit * Reason Onset Date Comments Appointment 09/18/2024 Encounter Details Date Type Department Care Team (Late st Contact Info) Description 09/18/2024 Telephone Cardiology, Jerzy 400 [facility] [place] [address] Carlota Willson CRNP 400 [place] [address] Appointment Allergies Active Allergy Reactions Criticality Noted [...] 9:12 AM EDT 4 Active Omnipod 5 [id number] Intro Gen 5 KitIndications: Type 2 diabetes mellitus with hemoglobin A1c goal of less than 7.0% (HCC) Use as directed- bring this to visit on Sep 18 1 Kit 08/25/2024 1:11 PM EST 4 Active Omnipod 5 FdvX0G3 Pods Gen 5Indications:Ty pe 2 diabetes mellitus with hemoglobin A1c goal of less than 7.0% (HCC) Use as directed. Change pod every 2 days 45 Each 3 08/18/2024 6:12 PM EDT Active Insulin Aspart 100 UNIT/ML Injection Solution (NovoLOG)Indica tions:Type 2 diabetes mellitus with hemoglobin A1c goal of less than 7.0% ([facility]) Inject up to 120 units [...] Constipation 10/27/2023 Cortical age-related cataract, right eye 11/22/2 023 COPD, moderate 05/25/2023 Restrictive lung disease [...] mRNA, LNP-s, No Pre serve, 2-Dose Series (PropertyBridge) 10/21/2021,03/01/2021,02/07/2021 H1N1 2009 Influenza, IM 11/04/2009 Pneumococcal Conjugate Vacci ne, 20-valent ([id number]) 07/09/2023 Pneumococcal Polysaccharide PPV23 (Pneumovax) 11/03/2015,02/09/2006 Seasonal [...] encounter Miscellaneous Notes * Telephone Encounter - Tessa Tineo OSA - 09/18/2024 4:11 PM EST PT IS SCHEDULED FOR 10/09/24 AT [facility] * Telephone Encounter - Vijay De La Vega OSA - 09/18/2024 3:43 PM EST Patient is ordered a cardiac study, please assist patient to schedule, thank you. NM MYOCARD PERF IMG SPECT MULT STUDIES WITH PHARM INTERV [26028.02] (Order [id number]) documented in this encounter Plan of Treatment Upcoming Encounters Date Type Department Care Team (Latest Contact Info) Description 4 11:30 AM EST Telemedicine Pharmacy, [place] [phone] Sharad [place] [address] [place] [facility] [place] [address] 4 11:30 AM EST Telemedicine Pharmacy, [place] [phone] Sharad [place] [address] [address] [facility] [address] 4 10:00 AM EST Office Visit Family [facility], [place] [phone] Velasquez Valencia MD [address] [place] [address] 4 7:45 AM EST Appointment Radiology, [facility] [address] [place] [address] 4 9:40 AM EST Office [facility] Pharmacy, [place] [facility] [address] [facility] [address] [place] [phone] [place] [address] 5 11:00 AM EST Hospital Encounter [facility]O [facility], Endoscopy Suite, HFAM 1, [address] [place] [address] Bipin Moss MD [address] [place] [address] 5 11:00 AM EST - 5 12:30 PM EST Surgery ENDO [facility], Endoscopy Suite, HFAM 1, [address] [place] [address] Bipin Moss MD [address] [place] [address] ESOPHAGOGASTRODUODENOSCOPY (EGD), FLEXIBLE, TRANSORAL, DIAGNOSTIC 5 8:40 AM EST Office Visit Nutrition & Weight Management, [facility] 132 [facility] [place] [address] Thao Lemus PA-C 132 [facility] [place] [address] 5 9:30 AM EST Nurse Only Nutrition & Weight Management, [facility] 132 [facility] [place] [address] Funk, Nutrition Ed Class 1 [facility] [address] [place] [address] 5 8:00 AM EST [facility] Visit [facility], [facility] [place] [phone] Velasquez Valencia MD [address] [facility] [place] [address] 5 9:30 AM EDT Imaging Radiology [facility]st [facility] 132 [facility] [place] [address] 5 10:00 AM EDT Office Visit Pulmonary Medicine, [address] [place] [address] Vishal Wallace MD [address] [place] [address] Scheduled Procedures Name Priority Associated Diagnoses Date/Ti [...] this encounter Medical Devices Implanted Type Area Chief Financial Officer Device Identifier Shelf Expiration Date Model / Serial / Lot Suture Walls Dbl Load 4.75mm - [id number] Implanted:Qty: 1 on 12/01/2019 by Judith Condon, DO at OR [facility] Right: Shoulder [employer] 07/17/2021 AR-2324BCT -2 / / [id number] Suture Walls Dbl Load 5.5mm - [id number] Implanted:Qty: 1 on 12/01/2019 by Judith Condon, DO at OR [facility] Right: Shoulder [employer] 09/16/2021 AR-2323BCT -2 / / [id number] documented as of this encounter Advance Directives [...] Advance Directives occurred with: Patient Care Teams Heel Scorer Relationship Specialty Start Date End Date Velasquez Valencia MD [address] [place] [address] PCP - General Family Medicine 09/09/22 documented as of this encounter
--- OUTSIDE RECORDS SUMMARY | 2024-10-01 11:33 | External Medical Summary | Summary of Care ---
Author Name Unknown Organization [facility] Address [address] [address] Phone [phone] Care Team Providers Care Testing And Regulating Technician Name Role Phone Velasquez Valencia MD Primary Care Provider [phone]- [phone] Reason for Visit * Reason Onset Date Comments Hospital Follow-Up Hospital foll ow up 09/16-09/17 for chest pain. Pt reports feeling good now. Hospital Follow-Up 09/22/2024 Encounter Details Date Type Department Care Team (Late st Contact Info) Description 09/22/2024 10:00 AM EST [facility] [address] [place] [phone] Velasquez Valencia MD [address] [facility] [place] [place] [id number] Chest pain, unspecified type*; Hospital discharge follow-up; Type 2 diabetes mellitus with hemoglobin A1c goal of less than 7.0% ([facility]); Constipation, unspecified constipation type; Gastroparesis; HTN, goal below 140/90 Allergies Active Allergy Reactions Criticality Noted Date Comments Pioglitazone 07/19/2024 Cefaclor Unknown 07/26/2018 As child Empagliflozin Other (Please comment) 05/16/2021 DKA with hospitalization Nsaids High 04/19/2019 Gastric problems Other Reaction(s): gastroparesis, kidney problems, use with caution : hx esophagus damage documented as of this encounter (statuses as of 09/22/2024) Medications Polyethylene Glycol 3350 17 GM Oral [...] not taking.Reported on 09/22/2024 OneTouch Delica Lancets 33GIndications: Type 2 diabetes mellitus with hemoglobin A1c goal of less than 7.0% (HCC) Use to check blood sugars once daily as needed 100 Each 05/10/2024 5:28 PM EDT 4 Active Additional Information Patient not taking.Reported on 09/22/2024 Dexcom G6 SensorIndicatio ns:Type 2 diabetes mellitus with hemoglobin A1c goal of less than 7.0% (HCC) Use as directed every 10 days. 9 Each 5 09/21/2024 11:52 AM EST 4 Active Dexcom G6 TransmitterIndi cations:Type 2 diabetes mellitus with hemoglobin A1c goal of less than 7.0% (HCC) Use as directed. Change every 90 days 1 Each 5 07/20/2024 9:12 AM EDT 4 Active Omnipod 5 [id number] Pods Gen 5Indications:Ty pe 2 diabetes mellitus with hemoglobin A1c goal of less than 7.0% ([facility]) Use as directed. Change pod every 2 days 45 Each 3 08/18/2024 6:12 PM EDT 4 Active Insulin Aspart 100 UNIT/ML Injection Solution (NovoLOG)Indica tions:Type 2 diabetes mellitus with hemoglobin A1c goal of less than 7.0% ([facility]) Inject up to 120 units daily using [...] as of this encounter (statuses as of 09/22/2024) Active Problems Problem Noted Date Diagnosed Date [...] as of this encounter (statuses as of 09/22/2024) Resolved Problems Problem Noted Date Diagnosed Date [...] as of this encounter (statuses as of 09/22/2024) Immunizations Name Administration Dates Next Due COVID-19 mRNA, LNP-s, No Pre serve, 2-Dose Series (Pfizer) 10/21/2021,03/01/2021,02/07/2021 H1N1 2009 Influenza, IM 11/04/2009 Pneumococcal Conjugate Vacci ne, 20-valent ([id number]) 07/09/2023 Pneumococcal Polysaccharide PPV23 (Pneumovax) 11/03/2015,02/09/2006 Seasonal [...] Sign Reading Time Taken Comments Blood Pressure 173/85 09/22/2024 10:02 AM EST Pulse 106 09/22/2024 10:02 AM EST Temperature 37 C (98.6 F) 09/22/2024 10: 02 AM EST Respiratory Rate 16 09/22/2024 10:0 2 AM EST Oxygen Saturation 95% 09/22/2024 10: 02 AM EST Inhaled Oxygen Concentration - - Weight 155.3 kg (342 lb 6.4 oz) 024 10:02 AM EST Height 188 cm (6' 2") 09/22/2024 10:02 AM EST Body Mass Index 43.96 09/22/2024 10:02 AM EST documented in this encounter Functional [...] Progress Notes * Velasquez Valencia MD - 09/22/2024 10:45 AM EST Subjective: Bry Akhtar . is a 48 year old male here today for Chief Complaint Patient presents with Hospital Follow-Up Hospital follow up 09/16-09/17 for chest pain. Pt reports feeling good now. Hospital Follow-Up Presents for hospital follow-up. Admitted to [facility] August 20, 2024 through September 17, 2024. Admission was for atypical chest pain and elevated blood pressures. Patient reported that I had advised him to. His cardiac medications. That is not correct. We did discuss his gastroparesis and that some meds can contribute to issues with gastroparesis - mainly GLP-1 medications, opioid pain medications. Patient stopped almost all of his medications on his own. With restarting his meds in the hospital, he did have improvement in his blood pressure and improvement in his chest pain. He is scheduled for an outpatient stress test with Cardiology. [facility] is [facility] and the Right[employer] device. He is now working with Gastroenterology from [place]. He plans to work toward gastric bypass surgery. There are several steps that need to be accomplished prior to that. He was told at his last GI appointment to do a bowel prep and then take MiraLax once ortwice a day. He never took the bowel prep because he states he was not given the instructions. I did give him a printed copy of the instructions that were typed in at that Gastroenterology appointment . He does say his abdominal symptoms are better. He has been rescheduled for his EGD with endoscopic ultrasound at [place]. He is working with Physical therapy and they were concerned about some swelling of the left BKA stump. They told him to have that evaluated here. He is requesting a form for a parking placard. 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 Current use of insulin ([facility]) 09/13/2017 DDD (degenerative disc disease), cervical 07/12/2019 Diabetes mellitus type 2, insulin dependent ([facility]) 07/05/2017 Diabetic polyneuropathy associated with type 2 diabetes mellitus ([facility]) 07/24/2016 Displacement of lumbar intervertebral disc without myelopathy DM type 2, goal: symptom mgmt ([facility]) 09/13/2017 DM type 2, not at goal ([facility]) Dyslipidemia, goal LDL below 70 07/24/2016 Gastroesophageal [...] A1c goal of less than 8.0% ([facility]) 07/05/2017 Past Surgical History: Procedure Laterality Date TOMAS HUTSON,W/ROTATOR CUFF Right 12/01/2019 ARTHROSCOPY SHOULDER ROTATOR CUFF performed by Judith Condon DO at OR [facility] COLONOSCOPY, DIAGNOSTIC (RECTUM) 04/18/2015 adenomatous polyp, repeat 5 yrs/[facility] COLONOSCOPY, DIAGNOSTIC (RECTUM) 04/15/2023 poor prep, repeat / [facility] COLONOSCOPY, DIAGNOSTIC (RECTUM) N/A 02/22/2024 normal/recall 5 years/COLONOSCOPY FLEXIBLE PROXIMAL DIAGNOSTIC performed by Marcela Del Valle MD at OR [facility] EGD, FLEXIBLE, DIAGNOSTIC 10/17/2014 mild-mod inflammation, repeat 1-2 mo/[facility] EGD, FLEXIBLE, DIAGNOSTIC 04/17/2015 normal bx/inpt [facility] EGD, FLEXIBLE, DIAGNOSTIC 05/08/2019 reflux esophagitis, gastritis, duodenitis, repeat 6 wks / [facility] EGD, FLEXIBLE, DIAGNOSTIC 08/18/2019 normal-EGD/[place] EGD, FLEXIBLE, DIAGNOSTIC N/A 05/02/2020 biopsies normal/[facility] EGD, FLEXIBLE, DIAGNOSTIC N/A 02/22/2024 antral gastritis/biopsies normal/ESOPHAGOGASTRODUODENOSCOPY (EGD), FLEXIBLE, TRANSORAL, DIAGNOSTIC performed by Marcela Del Valle MD at OR [facility] EGD, FLEXIBLE, DIAGNOSTIC N/A 08/02/2024 medium amount of food stomach/repeat to be scheduled/ESOPHAGOGASTRODUODENOSCOPY (EGD), FLEXIBLE, TRANSORAL, DIAGNOSTIC performed by Belen Jones DO at OR [facility] INJECT DX/THER SUBSTANCE INTERLAMINAR CERVICAL/THORACIC W IMAGE GUIDE 08/17/2019 INJECTION SPINE LUMBAR CERVICAL OR THORACIC performed by Dario Nails DO at OR [facility] KNEE ARTHROSCOPY, DIAGNOSTIC l knee REMOVAL OF TONSILS, UNDER AGE 12 SHOULDER ARTHROSCOPY, BICEPS TENODESIS Right 12/01/2019 ARTHROSCOPY SHOULDER BICEP TENODESIS performed by Judith Condon DO at OR [facility] SHOULDER ARTHROSCOPY/DECOMPRESSION Right 12/01/2019 ARTHROSCOPY SHOULDER SUBACROMIAL DECOMPRESSION performed by Judith Condon DO at OR [facility] Review of patient's allergies indicates: Allergen Reactions [...] as needed for Nausea. 20 Tablet 0 Polyethylene Glycol 3350 17 GM/SCOOP Oral Powder (Miralax) Take 1 scoop daily in 8 ounces of water.510 g 5 Dexcom G6 Sensor Use as directed every 10 days. 9 Each 5 Dexcom G6 Transmitter Use as directed. Change every 90 days 1 Each 5 Omnipod 5 [id number] Pods Gen 5 Use as directed. Change pod every 2 days 45 Each 3 Haloperidol 1 MG Oral Tablet (Haldol) Take 1 Tablet by mouth 4 times a day as needed. Omeprazole 40 MG Oral Capsule Delayed Release (PriLOSEC) Take 1 Capsule by mouth in the morning. 90Capsule 3 Dicyclomine HCl 10 MG Oral Capsule (Bentyl) Take 1 Capsule by mouth 4 times a day as needed for Diarrhea. Aspirin 81 MG Oral Tablet Delayed Release (Aspirin EC Low Dose) Take 1 Tablet by mouth in the morning. Atorvastatin Calcium 20 MG Oral Tablet (Lipitor) Take 1 Tablet by mouth daily. Famotidine 20 MG Oral Tablet (Pepcid) Take 1 Tablet by mouth at bedtime. Losartan Potassium 50 MG Oral Tablet (Cozaar) Take 1 Tablet by mouth in the morning and 1 Tablet before bedtime. Metoprolol Succinate 50 MG Oral Capsule ER 24 Hour Sprinkle Take 1 Tablet by mouth in the morning and 1 Tablet before bedtime. Spironolactone 25 MG Oral Tablet (Aldactone) Take 1 Tablet by mouth in the morning. Terazosin HCl 1 MG Oral Capsule (Hytrin) Take 1 Capsule by mouth at bedtime. Torsemide 10 MG Oral Tablet (Demadex) Take 2 Tablets by mouth in the morning. BD Pen Needle Short U/F 31G X 8 MM (Insulin Pen Needle) Use to inject insulin 5 times daily (Patient not taking: Reported on 09/22/2024) 500 Each 3 OneTouch Verio In Vitro Strip (Glucose Blood) Use to check blood sugar once daily as needed (Patient not taking: Reported on 09/22/2024) 100 Strip 0 OneTouch Delica Lancets 33G Use to check blood sugars once daily as needed (Patient not taking: Reported on 09/22/2024) 100 Each 0 Insulin Aspart 100 UNIT/ML Injection Solution (NovoLOG) Inject up to 120 units daily using Omnipod 5 (Patient not taking: Reported on 09/22/2024) 120 mL 4 No current facility-administered medications for this visit. Objective: BP 173/85 | Pulse 106 | Temp 98.6 F (37 C) (Tympanic) | Resp 16 | Ht 6' 2" (1.88 m) | Wt (!) 342 lb 6.4 oz (155.3 kg) | SpO2 95% | BMI 43.96 kg/m | BSA 2.85 m GEN: NAD CHEST: CTA B CV: RRR EXT: the left BKA stump does not have any open wound or drainage. There is no significant erythema.No warmth. No pitting edema. Assessment and Plan: Chest pain, unspecified type (Primary) -improved. Likely related to noncompliance with medications. Follow up with Cardiology and stress testing as scheduled. Hospital discharge follow-up - DISCH MED RECON CUR MED LIS Type 2 diabetes mellitus with hemoglobin A1c goal of less than 7.0% ([facility]) -continue with MTM and Omnipods Constipation, unspecified constipation type -instructions for bowel prep and MiraLax use provided to patient if needed Gastroparesis -copy of the recommendations for a gastroparesis diet given to patient HTN, goal below 140/90 -continue current meds Obesity -follow-up with GI nutrition clinic and steps to work towards gastric bypass. Swelling of BKA -I do not see anything that I can treat differently. Reasonable for him to use the compression stocking for shrinking the swelling. Also work with therapy to try to get the swelling down. Velasquez Valencia MD documented in this encounter Nursing Notes * Emily Wang, MED ASSIST - 09/22/2024 10:09 AM EST The patient has been properly identified by confirmation of name and date of . Chief Complaint Patient presents with Hospital Follow-Up Hospital follow up 09/16-09/17 for chest pain. Pt reports feeling good now. documented in this encounter Plan of Treatment Upcoming Encounters Date Type Department Care Team (Latest Contact Info) Description 4 7:45 AM EST Appointment Radiology, [facility] [address] [place] [address] 4 9:40 AM EST Office Visit Pharmacy, [facility] [address] [place] [phone] [address] [address] 5 11:00 AM EST Hospital Encounter ENDO [facility], Endoscopy Suite, [facility] [address], [address] [place] [address] Bipin Moss MD [address] [place] [address] 5 11:00 AM EST - 5 12:30 PM EST Surgery ENDO [facility], Endoscopy Suite, [address] [address], [address] [place] [address] Bipin Moss MD [address] [place] [address] ESOPHAGOGASTRODUODENOSCOPY (EGD), FLEXIBLE, TRANSORAL, DIAGNOSTIC 5 8:00 AM EST Office Visit Cardiology, [facility] [address] [place] [address] Sweta Loving CRNP [address] [place] [address] 5 8:40 AM EST Office Visit Nutrition & Weight Management, [facility] [address] [facility] [address] [place] [address] Thao Lemus PA-C [address] [facility] [address] [place] [address] 5 9:30 AM EST Nurse Only Nutrition & Weight Management, [facility] [address] [facility] [address] [place] [address] [place], Nutrition Ed Class [address] [place] [address] 5 8:00 AM EST [facility] [address] [facility] [phone] Velasquez [facility] [address] [facility] [place] [address] 5 9:30 AM EDT Imaging Radiology [facility] 1st Floor, [place] [address] [facility] [address] [place] [address] 5 10:00 AM EDT Office Visit Pulmonary Medicine, [facility] [address] [facility] [address] [place] [address] Vishal Wallace MD [address] [place] [address] Scheduled Procedures Name Priority Associated Diagnoses Date/Ti [...] encounter Medical Devices Implanted Type Area Director Data Management Device Identifier Shelf Expiration Date Model / Serial / Lot Suture Goodridge Dbl Load 4.75mm - [id number] Implanted:Qty: 1 on 12/01/2019 by Judith Condon DO at OR [facility] Right: Shoulder [employer] 07/17/2021 [id number] -2 / / [id number] Suture Goodridge Dbl Load 5.5mm - [id number] Implanted:Qty: 1 on 12/01/2019 by Judith Condon DO at OR [facility] Right: Shoulder [employer] 09/16/2021 [id number] -2 / / [id number] documented as of this encounter Visit Diagnoses Diagnosis Chest pain, unspecified type- Primary Hospital discharge follow-up Other follow-up examination Type 2 diabetes mellitus with hemoglobin A1c goal of less than 7.0% (HCC) Constipation, unspecified constipation type Gastroparesis HTN, goal below 140/90 Unspecified essential hypertension Pain of upper abdomen [...] Advance Directives occurred with: Patient Care Teams Testing And Regulating Technician Relationship Specialty Start Date End Date Velasquez Valencia MD [address] [place] [address] PCP - General Family Medicine 09/09/22 documented as of this encounter
--- OUTSIDE RECORDS SUMMARY | 2024-10-01 11:33 | External Medical Summary | Summary of Care ---
Author Name Unknown Organization [facility] Address [address] [address] Phone [phone] Care Team Providers Care Exhibit Designer Name Role Phone Velasquez Valencia MD Primary Care Provider +1- [phone] Reason for Visit * Reason Comments Dosage Adjustment In Person (Anticoag Cl inic) Insulin Pump Encounter Details Date Type Department Care Team (Late st Contact Info) Description 09/18/2024 10:40 AM EST Office Visit Pharmacy, [facility] [address] [place] [address] [place], [facility] [address] [place] [address] Type 2 diabetes mellitus with hemoglobin A1c goal of less than 7.0% ([facility])* Allergies Active Allergy Reactions Criticality [...] Each 11/05/2023 11:40 AM EST 4 Active Additional Information Patient not taking.Reported on 09/06/2024 Ondansetron HCl 4 MG Oral Tablet Take 1 Tablet by mouth every 8 hours as needed for Nausea. 20 Tablet 11/05/2023 11:40 AM EST 4 Active Additional Information Patient not taking.Reported on 09/06/2024 Timmy Resendez 300 UNIT/ML Subcutaneous Solution Pen-injector [...] 05/10/2024 5:28 PM EDT 4 Active OneTouch Kam Lancets 33GIndications:T ype 2 diabetes mellitus with [...] 9:12 AM EDT 4 Active Omnipod 5 [id number] Intro Gen 5 KitIndications:T ype 2 diabetes mellitus with hemoglobin A1c goal of less than 7.0% (HCC) Use as directed- bring this to visit on Sep 18 1 Kit 08/25/2024 1:11 PM EST 4 Active Omnipod 5 [id number] Pods Gen 5Indications:Typ e 2 diabetes mellitus [...] 1 MG Oral Tablet (Haldol) 4 Active Omeprazole 40 MG Oral Capsule Delayed Release (PriLOSEC) Take 1 Capsule by mouth in the morning. 90 Capsule 3 4 Active Spiriva Respimat 2.5 MCG/ACT Inhalation Aerosol Solution 4 Active documented as of this encounter [...] IM 11/04/2009 Pneumococcal Conjugate Vacci ne, 20-valent ([id number]) 07/09/2023 Pneumococcal Polysaccharide PPV23 (Pneumovax) 11/03/2015,02/09/2006 Seasonal [...] in this encounter Progress Notes * Gisel Butler, [facility] - 09/18/2024 10:48 AM EST Images from the original note were not included. Medication Therapy Disease Management - CSII Start Training Bry Akhtar Jr. is an 48 year old year old male being seen in the Medication Therapy Disease Management Clinic today for an insulin pump start training with Omnipod Insulin Pump. Current Diabetes Medications: INC Toujeo U300 48 units in AM and 48 units in PM Novolog 34 units with breakfast, and 22 units with lunch and 24 units with supper + 10 units with snacks + CF of 1:10 over 140 Patient Active Problem List Diagnosis Morbid obesity [...] (HCC) Chest pain, non-cardiac Well adult exam Review of patient's allergies indicates: Allergen Reactions [...] taking: Reported on 09/06/2024) 20 Tablet 0 Toujeo SoloStar 300 UNIT/ML Subcutaneous Solution Pen-injector [...] over 150. Max daily dose of 115 [id number] mL 4 Polyethylene Glycol 3350 17 GM/SCOOP Oral Powder (Miralax) Take 1 scoop daily in 8 ounces of water.(Patient not taking: Reported on 09/06/2024) 510 g 5 OneTouch Verio In Vitro Strip (Glucose Blood) Use to check blood sugar once daily as needed 100 Strip 0 OneTouch Delica Lancets 33G Use to check blood sugars once daily as needed 100 Each 0 Dexcom G6 Sensor Use as directed every 10 days. 9 Each 5 Dexcom G6 Transmitter Use as directed. Change every 90 days 1 Each 5 Omnipod 5 MyeI2E3 Intro Gen 5 Kit Use as directed- bring this to visit on Sep 18 1 Kit 0 Omnipod 5 KjiI2S6 Pods Gen 5 Use as directed. Change pod every 2 days 45 Each 3 Insulin Aspart 100 UNIT/ML Injection Solution (NovoLOG) Inject up to 120 units daily using Omnipod 5 120 mL 4 Haloperidol 1 MG Oral Tablet (Haldol) Omeprazole 40 MG Oral Capsule Delayed Release (PriLOSEC) Take 1 Capsule by mouth in the morning. 90Capsule 3 Spiriva Respimat 2.5 MCG/ACT Inhalation Aerosol Solution (Patient not taking: Reported on 09/06/2024) No current facility-administered medications for this visit. Objective: The 10-year ASCVD risk score (Lynne KAT, et al., 2019) is: 13% Values used to calculate the score: Age: 48 years Sex: Male Is Non- : No Diabetic: Yes Tobacco smoker: Yes Systolic Blood Pressure: 130 mmHg Is BP treated: No HDL Cholesterol: 32 mg/dL Total Cholesterol: 131 mg/dL Estimated body mass index is 42.57 kg/m as calculated from the following: Height as of 09/06/24: 1.88 m (6' 2"). Weight as of 09/06/24: 150.4 kg (331 lb 9.6 oz). BP Readings from Last 3 Encounters: 09/06/24 130/70 08/22/24 132/70 08/18/24 142/82 Recent Labs Units 05/09/24 1359 03/07/24 0517 01/14/24 1059 HEMOGLOBIN A1C - [facility] % 8.6* -- 10.2* HEMOGLOBIN, [id number]-[id number] LAB % -- 10.0* -- Recent Labs Units 08/02/24 1349 07/29/24 0000 07/19/24 1239 ESTIMATED GLOMERULAR FILTRATION RATE - [facility] mL/min 87 53* 73 CREATININE - [facility] mg/dL 1.0 1.57* 1.2 No results found for: "MICROALBUMIN" Lab Results Component Value Date/Time LDL CHOLESTEROL (CALCULATED) - [facility] 48 12/13/2023 04:39 AM LDL CHOLESTEROL (CALCULATED) - [facility] 108 01/08/2011 02:50 PM LDL CHOLESTEROL (DIRECT MEASURE) - [facility] 60 04/11/2024 03:45 AM LDL CHOLESTEROL (DIRECT MEASURE) - [facility] 133 (H) 04/12/2007 03:04 PM Lab Results Component Value Date/Time ALT - [facility] 29 08/02/2024 01:49 PM ALT - [facility] 37 11/25/2019 08:53 AM ALT-OUTSIDE LAB 26 03/28/2024 10:47 AM Considerations: - Jardiance caused DKA - hx of acute pancreatitis 12/14/23 & 03/2024- avoiding GLPs and GIPs - metformin stopped on own by patient 07/2024 and he feels better off it Assessment & Plan: The following education was completed in clinic today: Discussed functionality of a hybrid closed loop system resulting in automated basal delivery and the ability to operate in this mode or in manual mode based on predetermined insulin settings. Reviewed pump basics, including: Pump supplies and how to reorder Where to find Customer's Bill of Rights and Responsibilities in User Guide Assisted patient with setting up Omnipod coleen [employer] 5 coleen (on personal compatible smartphone or supplied PDM): Home screen (CGM graph, insulin on board (IOB)) Dashboard (CGM data) Insulin (indicates mode) Pod Info (how to deactivate a pod) Menu feature (switching modes, activity feature, temp basal in manual mode, and settings including how to pair a new CGM transmitter) Omnipod help line and clinic phone number for 10/05 support Initial pump settings programmed as noted below under medications. Basal rate programmed Bolus settings programmed, including: ICR, ISF, BG target, BG correct above & insulin on board Assisted in linking active Dexcom CGM to Omnipod coleen Placed patient immediately into automated mode Taught patient how to use bolus wizard, including: Based on ICR/fixed dose only (if no active sensor) Correction dose only (tap use CGM) Carb intake plus correction Taught patient how to manage hyperglycemia (blood glucose >250mg/dL), including: Enter blood glucose into pump and deliver correction dose - confirm insulin dose and press ENTER to deliver insulin Recheck blood glucose in 1-2 hours If blood glucose remains >250mg/dL: - give a correction dose via syringe - change infusion set, site, reservoir and insulin Contact clinic if blood glucose remains >250mg/dL despite above Reviewed suspend feature (in manual mode) and discussed appropriate use (when changing pod) Patient demonstrated ability to fill pod and attach to body. Pod must be to the right of and touching device with Omnipod coleen for activation Check pink slide window to ensure cannula has deployed Coleen must be within 5 feet of pod for communication (administer bolus doses), otherwise can only deliver basal regimen. Both the Omnipod coleen and Dexcom coleen must remain open on the device (do not hard close) Pod and Dexcom CGM must be within direct line of sight to allow communication Calibration is only required when the CGM indicates values different than how the patient feels or if glucose seems unresponsive to insulin delivery. Changing the CGM will require the Dexcom coleen and,every 90 days, entry of a new transmitter SN in to Omnipod coleen. Discussed alerts/alarms, no pod communication errors, and limited mode. All questions on how to operate or utilize Omnipod coleen and pod go to [place]let. All troubleshooting CGM goes to Dexcom. Concerns over glucose values to be directed to [facility]. Diabetes Medications: (pump initiation settings scanned in Epic or transferred from previous pump) Omnipod 5 Insulin Pump Insulin: Novolog U-100 Basal Rate: 2.8 units/hour Bolus: 60 g with any meal --> set up in custom foods; note: max bolus is 30 u Bolus Calculator: on and using ICR: 3.3 ISF: 13 Bolus Calculator: Target B Correct above: 150 Active Insulin Time: 4 hours Return to Clinic: 3 week(s) for first inperson pump setting adjustments; telephonic follow up @ 24 hour and 72 hour ronda. I spent a total of Greater than 55 mins (exact time 70 mins) on the date of service in preparation,delivery, and documentation of the care provided to Bry Akhtar Jr. excluding any time spent in the performance of separately billed services. Gisel Butler [facility] Clinical Pharmacist Medication Therapy Disease Management 09/18/2024, 10:49 AM documented in this encounter Plan of Treatment Upcoming Encounters Date Type Department Care Team (Latest Contact Info) Description 4 11:30 AM EST Telemedicine Pharmacy, [address] [place] [phone] [facility] [address] [facility] [address] 4 11:30 AM EST Telemedicine Pharmacy, [address] [place] [phone] [place] [facility] [address] [facility] [place] [address] 4 10:00 AM EST Office Visit Family Practice, [facility] [address] [place] [phone] Velasquez Valencia MD [address] [place] [address] 4 9:40 AM EST Office Visit Pharmacy, [facility] [place] [address] [place], [place] [phone] [facility] [address] [address] 5 11:00 AM EST Hospital Encounter ENDO [facility], Endoscopy Suite, HFAM 1, [address] [place] [address] Bipin Moss MD [address] [place] [address] 5 11:00 AM EST - 5 12:30 PM EST Surgery ENDO [facility], Endoscopy Suite, HFAM 1, [address] [place] [address] Bipin Moss MD [address] [place] [address] ESOPHAGOGASTRODUODENOSCOPY (EGD), FLEXIBLE, TRANSORAL, DIAGNOSTIC 5 8:40 AM EST Office Visit Nutrition & Weight Management, [facility] [address] [place] [address] Thao Lemus PA-C [address] [facility] [place] [address] 5 9:30 AM EST Nurse Only Nutrition & Weight Management, [facility] [address] [place] [address] [place], Nutrition Ed Class 1 [facility] [address] [place] [address] 5 8:00 AM EST Office Visit Family [facility], [facility] [address] [facility] [place] [phone] Velasquez Valencia MD [address] [facility] [place] [address] 5 10:00 AM EDT Office Visit Pulmonary Medicine, [facility] [address] [place] [address] Vishal Wallace MD [address] [place] [address] Scheduled Procedures Name Priority Associated Diagnoses Date/Ti [...] this encounter Medical Devices Implanted Type Area Classified Copy Control Clerk Device Identifier Shelf Expiration Date Model / Serial / Lot Suture [place] Dbl Load 4.75mm - [id number] Implanted:Qty: 1 on 12/01/2019 by Judith Codnon DO at OR [facility] Right: Shoulder [employer] 07/17/2021 AR-2324BCT -2 / / [id number] Suture [place] Dbl Load 5.5mm - [id number] Implanted:Qty: 1 on 12/01/2019 by Judith Condon DO at OR [facility] Right: Shoulder [employer] 09/16/2021 AR-2323BCT -2 / / [id number] documented as of this encounter Visit Diagnoses Diagnosis Type 2 diabetes mellitus with hemoglobin A1c goal of less than 7.0% (HCC)- Primary Pain of upper abdomen Abdominal [...] Advance Directives occurred with: Patient Care Teams Exhibit Designer Relationship Specialty Start Date End Date Velasquez Valencia MD [address] [place] [address] PCP - General Family Medicine 09/09/22 documented as of this encounter
--- OUTSIDE RECORDS SUMMARY | 2024-10-01 11:34 | External Medical Summary | Summary of Care ---
Author Name Unknown Organization [facility] Address [address] [facility] [place] [address] Phone [phone] Care Team Providers Care Preschool Director Name Role Phone Velasquez Valencia MD Primary Care Provider +1- [phone] Encounter Details Date Type Department Care Team (Late st Contact Info) Description 09/18/2024 Population Health External Data Unspecified Department Allergies [...] Additional Information Patient not taking.Reported on 09/06/2024 Tosb SoloStar 300 UNIT/ML Subcutaneous Solution Pen-injector [...] 9:12 AM EDT 4 Active Omnipod 5 DycF0P0 Intro Gen 5 KitIndications:T ype 2 diabetes mellitus with hemoglobin A1c goal of less than 7.0% (HCC) Use as directed- bring this to visit on Sep 18 1 Kit 08/25/2024 1:11 PM EST 4 Active Omnipod 5 EcrT0F3 Pods Gen 5Indications:Typ e 2 diabetes mellitus [...] mRNA, LNP-s, No Pre serve, 2-Dose Series (LifeLock) 10/21/2021,03/01/2021,02/07/2021 H1N1 2009 Influenza, IM 11/04/2009 Pneumococcal Conjugate Vacci ne, 20-valent ([id number]) 07/09/2023 Pneumococcal Polysaccharide PPV23 (Pneumovax) 11/03/2015,02/09/2006 Seasonal [...] Alicia Esteban RN documented in this encounter Plan of Treatment Upcoming Encounters Date Type Department Care Team (Latest Contact Info) Description 10/26/2024 11:00 AM EST Hospital Encounter ENDO [facility], Endoscopy Suite, HFAM 1, [address] [place] [address] Bipin Moss MD [address] [place] [address] 10/26/2024 11:00 AM EST - 10/26/2024 12:30 PM EST Surgery ENDO [facility], Endoscopy Suite, HFAM 1, [address] [place] [address] Bipin Moss MD [address] [place] [address] ESOPHAGOGASTRODUODENOSCOPY (EGD), FLEXIBLE, TRANSORAL, DIAGNOSTIC 11/22/2024 8:40 AM EST Office Visit Nutrition & Weight Management, [facility] [address] [place] [address] Thao Lemus PA-C [address] [place] [address] 11/22/2024 9:30 AM EST Nurse Only Nutrition & Weight Management, [facility] [address] [place] [address] [place], Nutrition Ed Class 1 [facility] [address] [place] [address] 11/23/2024 8:00 AM EST [facility] [address] [place] [phone] Velasquez Valencia MD [address] [facility] [place] [address] 07/09/2025 10:00 AM EDT Office Visit Pulmonary Medicine, [facility] [address] [place] [address] Vishal Wallace MD [address] [place] [address] Scheduled Procedures Name Priority Associated Diagnoses Date/Ti [...] 04/19/2024 DISCUSS TOBACCO CESSATION (REFER TO SMARTSET #0691) 07/19/2025 07/19/2024, 10/16/2022 GFR 08/02/2025 08/02/2024, 07/18, [...] this encounter Medical Devices Implanted Type Area Nurse Technician Device Identifier Shelf Expiration Date Model / Serial / Lot Suture [place] Dbl Load 4.75mm - [id number] Implanted:Qty: 1 on 12/01/2019 by Judith Condon DO at OR [facility] Right: Shoulder [employer] 07/17/2021 AR-2324BCT -2 / / [id number] Suture [place] Dbl Load 5.5mm - [id number] Implanted:Qty: 1 on 12/01/2019 by Judith Condon DO at OR [facility] Right: Shoulder [employer] 09/16/2021 AR-2323BCT -2 / / [id number] documented as of this encounter Advance Directives [...] Advance Directives occurred with: Patient Care Teams Preschool Director Relationship Specialty Start Date End Date Velasquez Valencia MD [address] [facility] [place] [address] PCP - General Family Medicine 09/09/22 documented as of this encounter
--- NOTE | 2024-10-01 14:58 | Pharmacy Report ---
Pharmacy Glycemic Short Note 2 - Date of Service October 01, 2024 - Glycemic Short BSG Results (Last 24 hours): 09/30/24 09/30/24 09/30/24 14:37 15:24 20:08 Glucose 398 H* POC Glucose 325 H* POC Glucose (other) 366 H* 09/30/24 10/01/24 10/01/24 23:14 04:09 06:07 Glucose 198 H POC Glucose 312 H* 198 H POC Glucose (other) 10/01/24 10/01/24 07:10 11:30 Glucose POC Glucose 219 H 207 H POC Glucose (other) OUTPATIENT ANTIDIABETIC REGIMEN: * Omnipod insulin pump-newly started 09/18 * Basal rate 2.8 units/hr --> 67 units/day * CF 13, CR 3.3 HbA1c 8.6% (05/09/24) ASSESSMENT: * Bry is a 48 YOM admitted with chest pain and a history of T2DM newly managed on an insulin pump. Upon admission the decision was made to transition to SQ insulin while inpatient for better glycemic control. Pharmacy has been consulted to assist with glycemic management while inpatient. * Fasting BSG this AM elevated, will dose insulin based on previously used parameters from prior admissions. Basal at slightly higher than a weight based stress of 3 and NovoLog at a a weight based stress of 2.5. PLAN FOR INPATIENT GLYCEMIC CONTROL: * Hold outpatient oral diabetes medications * Basal insulin * Lantus 50 units SQ QAM * Lantus 40-50 units SQ HS * Bolus insulin * NovoLog per scale ACHS or Q6hrs while NPO * Goal Range: Low 110 mg/dL - High 140 mg/dL * Correction Factor: 12 mg/dL/unit * Nutritional / Prandial insulin per carb ratio of 1 unit per 4 grams CHO consumed
--- NOTE | 2024-10-01 17:03 | XRay Report ---
EXAMINATION: X-ray shoulder left minimum 2 view routine CLINICAL HISTORY: Pain PRIORS: None TECHNIQUE: Internal rotation, external rotation and Y view of the left shoulder. FINDINGS: Large body habitus is noted. Moderate degenerative change of the acromioclavicular joint with undersurface spurring is noted. A mildly curved acromion is noted. Humeral head is not high riding. No acute fracture or dislocation. No soft tissue abnormality or calcification. The visualized rib and lung have a normal appearance. IMPRESSION: Moderate degenerative change of the acromioclavicular joint with undersurface spurring and anatomy that may predispose to impingement on the underlying rotator cuff. Electronically signed by Thao Gage 10-01-2024 5:03 PM
[2024-10-01] MEDS: FAMOTIDINE 20 MG TAB PO SCH (20:28)
[2024-10-01] MEDS: ATORVASTATIN 20 MG TAB PO SCH (20:28)
[2024-10-02 07:10] VITALS: TEMP 98.1
[2024-10-02 07:29] LABS: Basophils # (auto) 0.06 K/uL (0.00-0.20); Basophils % (auto) 0.8 %; Eosinophils # (auto) 0.33 K/uL (0.00-0.50); Eosinophils % (auto) 4.3 %; Hematocrit (blood only) 39.5 % (42.0-52.0); Hemoglobin 12.5 g/dl (14.0-18.0); Immature Granulocytes # (auto) 0.07 K/uL (0.01-0.20); Immature Granulocytes % (auto) 0.9 %; Lymphocytes # (auto) 1.75 K/uL (1.20-3.40); Lymphocytes % (auto) 23.1 %; Mean Corpuscular Hemoglobin 26.5 pg (25.0-34.0); Mean Corpuscular Hgb Conc 31.6 g/dL (32.0-36.0); Mean Corpuscular Volume 83.9 fL (80.0-100.0); Mean Platelet Volume 9.5 fL (9.4-12.4); Monocytes # (auto) 0.75 K/uL (0.11-0.59); Monocytes % (auto) 9.9 %; Neutrophils # (auto) 4.63 K/uL (1.40-6.50); Platelet Count 243 K/uL (130-400); RDW Standard Deviation 43.2 fL (36.4-46.3); Red Blood Count 4.71 M/uL (4.70-6.10); White Blood Count 7.59 K/ul (4.8-10.8)
[2024-10-02 07:48] LABS: Albumin Globulin Ratio 1.2 (0.9-2); Albumin Level 3.6 gm/dl (3.4-5.0); BUN Creatinine Ratio 24.3 (10-20); Bilirubin,Total 0.6 mg/dl (0.2-1.0); Calcium 9.4 mg/dl (8.6-10.3); Creatinine Clr Calc Pharmacy 126.1 ml/min; Globulin 2.9 gm/dl (2.5-4.0); Magnesium 1.7 mg/dl (1.7-2.4); Phosphorus 3.5 mg/dl (2.5-4.9); Potassium 4.3 mmol/L (3.5-5.1); Total Protein 6.5 gm/dl (6.0-8.3)
--- NOTE | 2024-10-02 11:17 | Pharmacy Report ---
Pharmacy Glycemic Short Note 2 - Date of Service October 02, 2024 - Glycemic Short BSG Results (Last 24 hours): 10/01/24 10/01/24 10/01/24 11:30 16:20 20:03 Glucose POC Glucose 207 H 100 H 132 H 10/02/24 10/02/24 07:15 07:21 Glucose 221 H POC Glucose 229 H OUTPATIENT ANTIDIABETIC REGIMEN: * Omnipod insulin pump-newly started 09/18 * Basal rate 2.8 units/hr --> 67 units/day * CF 13, CR 3.3 * HbA1c 8.6% (05/09/24) ASSESSMENT: 10/02/24 * Patient received 136 units of insulin yesterday, 90 units of basal. Fasting BG elevated today at 221mg/dl - consider increasing basal tomorrow if fasting remains above goal. * Continue NovoLog parameters at this time, BG at goal yesterday afternoon and evening (100mg/dl, 132mg/dl) * Pt on PO Doxy for SSTi. 10/01/24 * Bry is a 48 YOM admitted with chest pain and a history of T2DM newly managed on an insulin pump. Upon admission the decision was made to transition to SQ insulin while inpatient for better glycemic control. Pharmacy has been co nsulted to assist with glycemic management while inpatient. * Fasting BSG this AM elevated, will dose insulin based on previously used parameters from prior admissions. Basal at slightly higher than a weight based stress of 3 and NovoLog at a a weight based stress of 2.5. PLAN FOR INPATIENT GLYCEMIC CONTROL: * Hold outpatient insulin pump * Basal insulin * Lantus 50 units SQ QAM * Lantus 40-50 units SQ HS * Bolus insulin * NovoLog per scale ACHS or Q6hrs while NPO * Goal Range: Low 110 mg/dL - High 140 mg/dL * Correction Factor: 12 mg/dL/unit * Nutritional / Prandial insulin per carb ratio of 1 unit per 4 grams CHO consumed
[2024-10-02 11:50] VITALS: PULSE 92; RESP 20; O2SAT 90
--- NOTE | 2024-10-02 12:37 | Discharge Summary ---
Discharge Summary Date of Service October 02, 2024 Principal Dx & Hospital Course #1 = Principal Diagnosis (1) Chest pain: Plan Pt is a 48yoM with PMhx significant for chronic diastolic heart failure (EF 55 to 60%, TTE 2023), hypertension, hyperlipidemia, COPD/RLD, DAMION (current CPAP noncompliance), PE/DVT status post anticoagulation, DM2 on insulin pump, NAFLD, GERD, gastroparesis, history of pancreatitis, chronic anemia (baseline hemoglobin 11-12), morbid obesity, intellectual disability as per records, ongoing tobacco abuse presenting for evaluation of chest pain once more. Atypical Chest Pain Pt presenting with chest pain once more Troponins normal x3 EKG noting sinus tachycardia Echo with EF 55-60%, mild LVH, Grade I diastolic dysfunction XR left shoulder ordered and noting severe arthritic changes Cardiology consult, appreciate recs. Recommended/stated the following: "Atypical chest discomfort. Patient with constant left upper outer/left shoulder chest discomfort for at least 2 weeks. EKG without acute change. High-sensitivity troponin negative. Recent resting echocardiography with preserved LV systolic function, without wall motion abnormality or significant valvular disease. Agree with plans for outpatient Lexiscan nuclear stress testing on October 09, 2024 noting multiple cardiac risk factors. Recommend evaluation for noncardiac etiologies as per Hospitalist..." please ensure follow-up for stress testing currently scheduled on October 09, 2024. Chronic diastolic heart failure some signs of fluid retention Echo with EF 55-60%, mild LVH, Grade I diastolic dysfunction Continued home diuretics Cardiology consulted as noted above. Recommended/stated the following: "Volume overload. Examination reveals a normovolemic patient. Continue prior to arrival diuretic regimen including torsemide and spironolactone. Recommend sodium (2 g/day) and fluid (2 L/day) restrictions. Recommend DTP{diuretic titration plan}, doubling torsemide dosing x 2 to 3 days if patient experiences 2 pound weight gain overnight or 5 pound weight gain in 1 week." Close PCP and cardiology followup after discharge Left Shoulder Pain Arthritis, L shoulder XRAY of left shoulder noting "Moderate degenerative change of the acromioclavicular joint with undersurface spurring and anatomy that may predispose to impingement on the underlying rotator cuff." Discussed with cardiology, can start topical NSAIDs. Pt discharged with diclof enac gel. Close pcp followup after discharge- consider further imaging with an MRI and ortho evaluation. Anemia, chronic Hgb in 11.7-12 range pcp followup Hyperglycemia DM, uncontrolled Hemoglobin a1c of 11 last moth Basal/bolus regimen while hospitalized, held home meds Pharmacy consult as pt newly on insulin pump Resume home regimen after discharge PCP and MTM followup after discharge R parotitis Noted on facial CT Pt asymptomatic PCP and Outpt ENT followup after discharge RLE Cellulitis RLE with noted swelling CT R foot concerning for cellulitis, no osteomyelitis at this time Started on doxycycline 100mg BID, discharged with it to complete 5 days of treatment Consider outpt podiatry followup Diarrhea possibly laxative induced Hold home laxative for now, stool C. difficile, stool CS Other Chronic Conditions: Hypertension, slightly elevated. cardiology recommending continue current regimen. hyperlipidemia, on statin Rx chronic hypercapnic respiratory failure, hx COPD/RLD, DAMION (current CPAP noncompliance). PCP followup for further evaluation and management PE/DVT status post anticoagulation intellectual disability as per records ongoing tobacco abuse Notes For Next Care Provider Please ensure followup for stress testing currently scheduled on Oct 09, 2024 Per Cardiology: " Recommend sodium (2 g/day) and fluid (2 L/day) restrictions. Recommend DTP, doubling torsemide dosing x 2 to 3 days if patient experiences 2 pound weight gain overnight or 5 pound weight gain in 1 week." Regarding arthritic left shoulder Discussed with cardiology, can start topical NSAIDs. Pt discharged with diclofenac gel. Close pcp followup needed after discharge- consider further imaging with an MRI and ortho evaluation. Outpt ENT followup for noted R parotitis on imaging Consider outpt podiatry followup for right foot Medication Changes From Visit diclofenac gel Admission HPI Per Admitting Provider History obtained from patient and records. Medical history significant for chronic diastolic heart failure (EF 55 to 60%, TTE 2023), hypertension, hyperlipidemia, COPD/RLD, DAMION (current CPAP noncompliance), PE/DVT status post anticoagulation, DM2 on insulin pump, NAFLD, GERD, gastroparesis, history of pancreatitis, chronic anemia (baseline hemoglobin 11-12), morbid obesity, intellectual disability as per records, ongoing tobacco abuse. Recent confinement recent confinement 2 weeks ago for atypical chest pain in the setting of uncontrolled blood pressure and medication noncompliance. Cardiology recommended outpatient stress test. Persistent intermittent achy left-sided chest pain occurring daily at home even at rest as per patient. Achy abdominal pain yesterday with watery diarrhea symptoms. Patient left face and right foot noted to be swollen by patient's girlfriend. Transient left eye pain without visual abnormalities. Achy headache symptoms. No recollection of recent trauma. Chest pain not relieved by nitroglycerin at the ER. 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 Admission Exam Per Admitting Provider GENERAL: Comfortable, pleasant, morbidly obese, no respiratory distress SKIN: Pallor, warm HEENT: Alopecia, no obvious facial swelling, pale palpebral conjunctivae, no ptosis, moist buccal mucosa, nasal cannula in place NECK : Supple, short neck, no tenderness CHEST : Decreased breath sounds, no tenderness HEART : RRR, no obvious murmurs ABDOMEN: Some distention, no abdominal tenderness EXTREMITIES : Right foot swelling without tenderness, left BKA stump NEUROLOGIC : Coherent, no facial asymmetry, no other gross focality Discharge Exam General: Alert, oriented. No acute distress Psych: Appropriate mood and affect Neuro: No gross deficits while laying in bed HEENT: NC/AT CV: RRR Resp: Breath sounds clear bilaterally, no increased effort of breathing Abdomen: Soft, nontender Extremities: Left BKA Updated Medication List Medication Instructions Recorded Confirmed Type dicyclomine 10 mg capsule 10 mg PO QID PRN Diarrhea 05/01/20 09/30/24 History aspirin 81 mg tablet,delayed 81 mg PO DAILY 30 days #30 tabs 09/17/24 09/30/24 Rx release atorvastatin 20 mg tablet 20 mg PO HS 30 days #30 tabs 09/17/24 09/30/24 Rx famotidine 20 mg tablet 20 mg PO HS 30 days #30 tabs 09/17/24 09/30/24 Rx losartan 50 mg tablet 50 mg PO BID 30 days #30 tabs 09/17/24 09/30/24 Rx omeprazole 40 mg capsule,delayed 40 mg PO DAILYBB 30 days #30 caps 09/17/24 09/30/24 Rx release spironolactone 25 mg tablet 25 mg PO DAILY 30 days #30 tabs 09/17/24 09/30/24 Rx terazosin 1 mg capsule 1 mg PO HS 30 days #30 caps 09/17/24 09/30/24 Rx torsemide 10 mg tablet 20 mg (2 x 10 mg) PO DAILY 30 days 09/17/24 09/30/24 Rx #60 tabs haloperidol 1 mg tablet 1 mg PO DAILY 09/30/24 09/30/24 History metoprolol succinate 100 mg 100 mg PO BID 09/30/24 09/30/24 History tablet,extended release 24 hr polyethylene glycol 3350 17 gram 17 g PO DAILY 09/30/24 09/30/24 History oral powder packet diclofenac sodium 1 % topical gel 2.25 inch topical QID #100 grams 10/02/24 Rx doxycycline hyclate 100 mg capsule 100 mg PO BID #7 caps 10/02/24 Rx Hospital Stay Data Consultations 09/30/24 20:30 ED Decision to Admit Stat 10/01/24 00:30 Consult Podiatry Routine 10/01/24 00:32 Consult Cardiology Routine Diagnostic Imagining Performed 09/30/24 14:46 CT abd pelvis IV con only Stat 09/30/24 21:42 CT angio chest PE protocol Stat CT facial bones wo con Stat CT foot RT wo con Stat CT head/brain wo con Stat Abdomen/Pelvis CT 09/30/24 14:46 EXAM: CT Abdomen and Pelvis With Intravenous Contrast INDICATION: Diarrhea. TECHNIQUE: Axial computed tomography images of the abdomen and pelvis with intravenous contrast. Sagittal and coronal reformatted images were created and reviewed. This CT exam was performed using one or more of the following dose reduction techniques: automated exposure control, adjustment of the mA and/or kV according to patient size, and/or use of iterative reconstruction technique. CONTRAST: 94ml of Optiray 320 was administered intravenously. COMPARISON: No relevant prior studies available. FINDINGS: Limitations: None. Lung bases: No abnormality noted. Pleural space: No visualized pleural effusion or pneumothorax. Heart: No abnormality noted. Mediastinum: No abnormality noted. ABDOMEN: Liver: Normal size and contour. Hypodense typical of steatosis. No mass or ductal dilation. Gallbladder and bile ducts: No calcified stones or surrounding fluid. Pancreas: Homogeneous enhancement. No mass, inflammation or ductal dilation. Spleen: No significant abnormality noted. Adrenals: No significant abnormality noted. Kidneys and ureters: Normal enhancement. No mass, hydronephrosis or visualized stone. Stomach and bowel: No distension or mucosal thickening. No inflammation noted. PELVIS: Appendix: Appendectomy. Bladder: Mildly distended urinary bladder without stones or gas. Reproductive: No abnormalities noted. ABDOMEN and PELVIS: Intraperitoneal space: No free air. No significant fluid collection. Bones/joints: No acute changes. Soft tissues: There are small bilateral fat containing inguinal hernias. Vasculature: There is minimal atherosclerotic calcification at the origin of the superior mesenteric artery and in the distal abdominal aorta and left common iliac artery. Internal iliac artery atherosclerotic calcification noted. There is moderate coronary calcification. No aneurysm. No visible dissection. Lymph nodes: No pathologically enlarged lymph nodes. IMPRESSION: 1. No intestinal obstruction or inflammation. 2. Mildly distended urinary bladder. 3. Hepatic steatosis. ACT 112: Negative or not required by law. Electronically signed by Carol Salcido 09-30-2024 4:04 PM Chest X-Ray 09/30/24 16:12 EXAM: Radiograph of the Chest 1 View INDICATION: Abdominal pain. TECHNIQUE: Frontal view of the chest. COMPARISON: 09/15/2024 FINDINGS: Lungs and pleural spaces: Stable prominent interstitial markings which appear chronic. No consolidation or pulmonary edema. No pleural effusion or pneumothorax. Heart: Stable cardiomegaly. Mediastinum: Normal contour. Bones/joints: No fracture, erosion or dislocation. Soft tissues: No abnormality noted. No radiopaque foreign body noted. Upper abdomen: No free air subjacent to either diaphragm. IMPRESSION: Stable chronic changes. No acute disease. ACT 112: Negative or not required by law. Electronically signed by Carol Salcido 09-30-2024 4:51 PM Chest CTA 09/30/24 21:42 Exam(s): CTA CHEST IV Amt: 120ml optiray 320 EXAM: CT Angiography Chest With Intravenous Contrast CLINICAL HISTORY: Reason for exam: cp. TECHNIQUE: Axial computed tomographic angiography images of the chest with intravenous contrast. Automated exposure control was utilized for the study. A dose lowering technique was utilized adhering to the principles of ALARA. MIP reconstructed images were created and reviewed. Moderate artifact from body habitus, breathing/patient motion. 120 ML Optiray 320 given IV. COMPARISON: CTA chest 07/13/24. FINDINGS: Aorta: No dissection or aneurysm. Pulmonary arteries: No central pulmonary embolism, with limited evaluation for mid or peripheral disease given significant artifact. Lungs: Clear. No consolidation. Pleural space: No significant effusion. No pneumothorax. Heart: Stable, moderate cardiomegaly. No significant pericardial effusion. Bones/joints: No acute fracture. Soft tissues: Small hiatal hernia, stable. Lymph nodes: No enlarged lymph nodes. IMPRESSION: 1. No definite acute abnormality, with moderate artifact limiting evaluation. Electronically signed by: Adilene Adler M.D. 10/01/24 00:[address] 09/30/24 21:42 Exam(s): CT FACIAL Without Contrast EXAM: CT Head and Maxillofacial Without Intravenous Contrast CLINICAL HISTORY: Reason for exam: swelling. TECHNIQUE: Axial computed tomography images of the head/brain and face without intravenous contrast. Automated exposure control was utilized for the study. A dose lowering technique was utilized adhering to the principles of ALARA. COMPARISON: No relevant prior studies available. FINDINGS: This study is limited as only bone windows images were presented for evaluation. Bones/joints: No acute fracture. Soft tissues: The right parotid gland is enlarged and edematous. Sinuses: Unremarkable as visualized. No acute sinusitis. Mastoid air cells: Unremarkable as visualized. No mastoid effusion. Orbits: Unremarkable as visualized. IMPRESSION: No findings concerning for right parotitis, which may be infectious or inflammatory etiology is. No evidence of sialolithiasis. Electronically signed by: Ethel Oro MD 10/01/24 00:[address] 09/30/24 21:42 Exam(s): CT RIGHT FOOT Without Contrast EXAM: CT Right Lower Extremity Without Intravenous Contrast, Foot CLINICAL HISTORY: Reason for exam: swelling. TECHNIQUE: Axial computed tomography images of the right foot without intravenous contrast. CTDI is 24.91 mGy and DLP is 621.31 mGy-cm. Automated exposure control was utilized for the study. A dose lowering technique was utilized adhering to the principles of ALARA. COMPARISON: None. FINDINGS: Bones/joints: Osteoarthritis about the ankle and hindfoot. Well- corticated bony fragment abutting the posterior margin of the talus, nonspecific, could reflect os trigonum or chronic, nonunited fracture of the posterior process with pseudoarticulation. No definite acute fracture or osteomyelitis. No dislocation. Soft tissues: Moderate cellulitis dorsal margin of the foot and mild ankle cellulitis. No radiopaque foreign body. IMPRESSION: 1. Well-corticated bony fragment along the posterior talus margin, nonspecific, could reflect os trigonum or a chronic, nonunited fracture with pseudoarticulation. 2. Mild to moderate superficial cellulitis foot and ankle. 3. No definite acute fracture. Electronically signed by: Adilene Adler M.D. 10/01/24 00:[address] 09/30/24 21:42 Exam(s): CT HEAD Without Contrast EXAM: CT Head Without Intravenous Contrast CLINICAL HISTORY: Reason for exam: avery, eye pain. TECHNIQUE: Axial computed tomography images of the head/brain without intravenous contrast. Automated exposure control was utilized for the study. A dose lowering technique was utilized adhering to the principles of ALARA. COMPARISON: No relevant prior studies available. FINDINGS: Brain: Unremarkable. No hemorrhage. No significant white matter disease. No edema. Ventricles: Unremarkable. No ventriculomegaly. Bones/joints: Unremarkable. No acute fracture. Soft tissues: There is mild soft tissue swelling about the posterior occiput with tiny hematoma. Sinuses: Unremarkable as visualized. No acute sinusitis. Mastoid air cells: Unremarkable as visualized. No mastoid effusion. IMPRESSION: No evidence of acute intracanal pathology. Electronically signed by: Ethel Oro MD 10/01/24 00:23 AM Shoulder X-Ray 10/01/24 16:36 EXAMINATION: X-ray shoulder left minimum 2 view routine CLINICAL HISTORY: Pain PRIORS: None TECHNIQUE: Internal rotation, external rotation and Y view of the left shoulder. FINDINGS: Large body habitus is noted. Moderate degenerative change of the acromioclavicular joint with undersurface spurring is noted. A mildly curved acromion is noted. Humeral head is not high riding. No acute fracture or dislocation. No soft tissue abnormality or calcification. The visualized rib and lung have a normal appearance. IMPRESSION: Moderate degenerative change of the acromioclavicular joint with undersurface spurring and anatomy that may predispose to impingement on the underlying rotator cuff. Electronically signed by Thao Gage 10-01-2024 5:03 PM Pending Results Patient Have Any Pending Studies at Discharge: No Discharge Instructions Given to Patient (Per Discharging Provider) Bry, You were admitted and treated for chest pain. You were seen by the paper guillotine operator who recommends that you keep and follow up with your appointment for your currently scheduled outpatient stress test on October 09. You had an x-ray done of your left shoulder which showed significant arthritic changes which can be contributing to your pain. Please continue with the t opical diclofenac gel for pain relief. Please keep close follow-up with your primary care provider about this as you will likely need further imaging in the form of an MRI or further evaluation by an surgical specialist. There was concern for swelling in your right foot and imaging suggested an infection. To prevent things from progressing further home we did start you on the antibiotic doxycycline, continue with that for another 3 days. Again, please keep close follow up with your primary care provider after discharge. Please do not hesitate to come back to the emergency room if your symptoms worsen or return. It was a pleasure taking care of you while you were here. Total Time Total Time Spent Total Time Spent (In Minutes): 60
[2024-10-02 14:41] VITALS: BP 156/81
--- NOTE | 2024-10-02 15:16 | Podiatry Consultation ---
Date of Consultation October 02, 2024 Assessment & Plan (1) Hyperglycemia due to type 2 diabetes mellitus: Diabetes mellitus assisted insulin use: unspecified assisted insulin use status Qualified Code(s): E11.65 - Type 2 diabetes mellitus with hyperglycemia (2) Charcot's joint arthropathy in type 2 diabetes mellitus: (3) Diabetic peripheral neuropathy associated with type 2 diabetes mellitus: Plan patient was examined and evaluated. We discussed at length the etiology and treatment of his right foot swelling. He has no objective concern of swelling at this point and he is likely noticing the effect of nonweightbearing and chronic atrophy of the lower extremity. He should continue with physical therapy and work on ambulating, once he fits into his left foot prosthesis. He is capable of being discharged home with this being his presenting symptom. Further he may follow-up with us on an as-needed basis if he develops any other foot and ankle concerns. He has had a history of Charcot neuroarthropathy leading to amputation so should monitor his remaining foot very closely. Patient understands and will schedule follow-up accordingly once discharged. History of Present Illness Reason for Consultation: "right foot abnormal CT" Attending Physician: Rose Lanza MD History of Present Illness patient seen at bedside at lunchtime. He states that he has a complex history of a left foot amputation stemming from a Charcot event. This was reconstructed and he subsequently developed osteomyelitis to the foot and ankle. He had an amputation of the left foot, as a below the knee amputation, last February. This has healed well but he has not begun walking yet. He states he presented to the hospital with concerns of increased swelling to the foot and his face that his girlfriend noticed over the last few days. Because the other foot progressed quickly once swelling started, he wanted to have this assessed. He denies any specific trauma or injury. He also denies any recent medical history change otherwise. Further, he denies any new or worsening signs or symptoms of infection. Allergies Allergy/AdvReac Type Severity Reaction Status Date / Time cefaclor [From Ceclor] Allergy Unknown childhood Verified 09/30/24 18:34 allergy ? Cephalosporins Allergy Unknown Unknown Verified 09/30/24 18:34 empagliflozin AdvReac Unknown put me Verified 09/30/24 18:34 [From Jardiance] into ketoacidosis? NSAIDS (Non-Steroidal AdvReac Unknown use with Verified 09/30/24 18:34 Anti-Inflamma caution : hx esophagus damage Home Medications Medication Instructions Recorded Confirmed Type dicyclomine 10 mg capsule 10 mg PO QID PRN Diarrhea 05/01/20 09/30/24 History aspirin 81 mg tablet,delayed 81 mg PO DAILY 30 days #30 tabs 09/17/24 09/30/24 Rx release atorvastatin 20 mg tablet 20 mg PO HS 30 days #30 tabs 09/17/24 09/30/24 Rx famotidine 20 mg tablet 20 mg PO HS 30 days #30 tabs 09/17/24 09/30/24 Rx losartan 50 mg tablet 50 mg PO BID 30 days #30 tabs 09/17/24 09/30/24 Rx omeprazole 40 mg capsule,delayed 40 mg PO DAILYBB 30 days #30 caps 09/17/24 09/30/24 Rx release spironolactone 25 mg tablet 25 mg PO DAILY 30 days #30 tabs 09/17/24 09/30/24 Rx terazosin 1 mg capsule 1 mg PO HS 30 days #30 caps 09/17/24 09/30/24 Rx torsemide 10 mg tablet 20 mg (2 x 10 mg) PO DAILY 30 days 09/17/24 09/30/24 Rx #60 tabs haloperidol 1 mg tablet 1 mg PO DAILY 09/30/24 09/30/24 History metoprolol succinate 100 mg 100 mg PO BID 09/30/24 09/30/24 History tablet,extended release 24 hr polyethylene glycol 3350 17 gram 17 g PO DAILY 09/30/24 09/30/24 History oral powder packet diclofenac sodium 1 % topical gel 2.25 inch topical QID #100 grams 10/02/24 Rx doxycycline hyclate 100 mg capsule 100 mg PO BID #7 caps 10/02/24 Rx Patient History Medical History Chronic diastolic heart failure Volume overload Arthritis Low magnesium level History of RSV infection & flu a few months ago. Tachycardia chronic high heart rate - unknown etiology - a few months ago increased dose of metoprolol. Rhinovirus dx May 23 [facility] & another illness dx - ? name of /antibiotic and inhalers for. feeling better: only symptom : sore throat. COPD (chronic obstructive pulmonary disease) ? dx of Peripheral neuropathy Diabetes mellitus, type 2 Hypertension Tobacco use Restrictive lung disease Elevated liver function tests History of DVT (deep vein thrombosis) "years ago">no known cause Tussive syncope "occurred only one time, no recent issues" Esophagitis Osteoarthritis Hx of pancreatitis resolved GERD (gastroesophageal reflux disease) Cardiac murmur A CHILD Erectile dysfunction MRSA (methicillin resistant Staphylococcus aureus) carrier over 2 yrs ago>"not sure where it was" Intellectual disability Obstructive sleep apnea cpap Obesity IBS (irritable bowel syndrome) History of ventricular tachycardia "nonsustained" Surgical History History of appendectomy 02/10/2023 History of reduction of nasal fracture 09/25/21-Dr. Garcia Status post incision and drainage LLE History of shoulder surgery right-2019 H/O foot surgery LEFT-2018 History of arthroscopy LEFT KNEE-1987 History of esophagogastroduodenoscopy (EGD) History of colonoscopy with most recent attempt: failed prep. Told would need a 2 day prep prior to colonoscopy in Sep 2023. History of tooth extraction History of tonsillectomy and adenoidectomy 1979 Family History Brother Family history of diabetes mellitus Environmental allergies Asthma Mother Family history of diabetes mellitus Hypertension Environmental allergies Father Family history of diabetes mellitus Hypertension Heart disease Grandfather (Paternal) Lung cancer smoker Aunt Bleeding disorder Other No family history of adverse response to anesthesia Social History Smoking Status: Current every day smoker Tobacco Type: Cigarettes Age Started Using Tobacco: 14; Cigarettes Per Day: 20; Second Hand Exposure: No; Do You Dip or Chew Tobacco: No; Hx Alcohol Use: No Hx Substance Use: No Preferred Language: Yakut Communication Ability: Effective Regional Production Manager Required: No Beliefs That Will Affect Care: None marital status: / marital status details: single at this time Current Living Situation: Significant Other Current Living Situation Comment: lives with mom current occupational status: employed 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 other: girlfriend able to assist with dressing changes and care as needed Feels Safe at Home: Yes Diet: diabetic during the past year weight has: remained stable Assistive Devices: Prosthesis and Wheelchair Review of Systems Review of Systems: All systems reviewed & are unremarkable except as noted in HPI & below Constitutional: no fever, no chills and no fatigue Eyes: no problem reported Ear, Nose, Mouth, Throat: no problem reported Respiratory: no problem reported Cardiovascular: + edema; no problem reported Gastrointestinal: no nausea, no vomiting and no problem reported Musculoskeletal: no problem reported Integumentary: + skin ulcer, + wounds and + erythema Neurologic: + loss of sensation, + numbness and + pa resthesia; no generalized weakness Psychiatric: no problem reported Physical Exam Physical Exam: left below the knee amputation noted, well-healed. Right lower extremity focused exam:/PT pulses 1/4 bilaterally. CFT is brisk to the digits. No open wounds are noted. No objective evidence of edema is appreciated. Limb is cool to cool proximal to distal. Protective sensation is diminished. No evidence of infection locally. No pain on palpation of the foot and ankle globally. atrophic changes are noted, otherwise, with thinning of the skin and decreased hair growth noted. Nail dystrophy is appreciated toes of the right foot Constitutional: WD/WN, vitals as above + ill appearing and + morbidly obese Eyes: PERRL, conjunctivae normal, anicteric sclerae ENMT: external ear and nose normal, oropharynx normal Neck: trachea midline, no thyromegaly normal visual inspection Respiratory: normal respiratory effort; no respiratory distress Cardiovascular: Rate/Rhythm: regular rate and regular rhythm Chest (Breasts): Chest: normal inspection of chest Gastrointestinal (Abdomen): Inspection/Auscultation: abdomen normal to inspection Percussion/Palpation: + abdomen tender and abdomen soft Musculoskeletal: no cyanosis or clubbing, extremities motor strength 5/5 Head/Neck/Chest: normocephalic and head atraumatic Extremities: extremities normal to inspection Skin: + skin atrophy; no ulcers, no erythema a nd no eschar Neurologic: moves all extremities and awake; + abnormal touch/pain/proprioception, + abnormal sensation to monofilament and no focal motor deficits Psychiatric: A+Ox3, euthymic affect Results & Data Vital Signs (Past 12 Hours) Vital Signs Temp Pulse Resp BP BP Pulse Ox O2 Del Method 10/02/24 14:37 36.7 C 92 H 20 154/82 H 156/81 H 90 10/02/24 11:49 36.7 C 92 H 20 154/82 H 90 Room Air 10/02/24 07:09 36.7 C 86 21 156/81 H 92 Nasal Cannula O2 Flow Rate 10/02/24 14:37 10/02/24 11:49 10/02/24 07:[address] exam reveals only evidence of vascular calcifications to the foot and ankle along with a chronic os trigonum to the posterior aspect of the talus. No evidence of early Charcot neuroarthropathy.
== END 2024-10-02 14:53 | disposition home or self-care (01) ==
LOC: 2S 14:00 → ED 14:00 → SUATTDRO 21:29 → 2S 22:11

== ENCOUNTER 2024-10-10 18:44 | Inpatient (IN) ==
--- OUTSIDE RECORDS SUMMARY | 2024-10-10 18:53 | External Medical Summary | Summary of Care ---
Author Name Unknown Organization [facility] Address [address] [facility] [place] [address] Phone [phone] Care Team Providers Care Vehicle Trimmer Name Role Phone Velasquez Valencia MD Primary Care Provider +- [phone] Reason for Referral * Evaluate & Treat - Unlimited Visits (Within 10 days (routine)) - Authorized Specialty Diagnoses / Procedures Referred By Bismark brown Referred To Contact Podiatry Diagnoses Cellulitis of right lower leg Velasquez Valencia MD [address] [place] [address] Phone: tel: fax: Referral ID Status Reason Start Date Expiration Date Visits Requested Visits Authorized [id number] Authorized Specialty Services Required [phone] Question Answer Referral Priority Within 10 days (routine) Where should this appointment be scheduled? [facility] Which condition are you referring this patient for? General Podiatry/Other Comments RLE cellulitis; patient is a diabetic. * Evaluate & Treat - Unlimited Visits (Within 10 days (routine)) - Authorized Specialty Diagnoses / Procedures Referred By Bismark brown Referred To Contact Otolaryngology Diagnoses Parotitis Velasquez Valencia MD [address] [place] [address] Phone: tel: fax: Referral ID Status Reason Start Date Expiration Date Visits Requested Visits Authorized [id number] Authorized Specialty Services Required [phone] Question Answer Referral Priority Within 10 days (routine) Where should this appointment be scheduled? [facility] Reason for Referral Head/Neck/Cancer Conditions Specific Condition: Head/Neck Comments Right parotitis noted on head CT during hospitalization at [facility] (09/30/2024 -10/02/2024). Patient currently asymptomatic. * Evaluate & Treat - Unlimited Visits (Within 10 days (routine)) - Authorized Specialty Diagnoses / Procedures Referred By Bismark brown Referred To Contact Orthopaedic Surgery / Orthopedics Diagnoses Arthritis of left shoulder region Velasquez Valencia MD [address] [place] [address] Phone: tel: fax: Referral ID Status Reason Start Date Expiration Date Visits Requested Visits Authorized [id number] Authorized Specialty Services Required [phone] Question Answer Referral Priority Within 10 days (routine) [facility] should this appointment be scheduled? [facility] What body part is the patient being seen for? Shoulder - Left shoulder What condition is the patient being seen for? Arthritis including related infection Reason for Visit * Reason Onset Date Comments Referral 10/04/2024 Orthopaedics, EN T, Podiatry Encounter Details Date Type Department Care Team (Latest Contact Info) Description 10/04/2024 Dial Printer Telephone Care Coordination and Integration [address] [place] [address] Aditi Treadwell, NEPTALI [address] [place] [address] Referral (Orthopaedics, ENT, Podiatry) Allergies Active Allergy Reactions Criticality Noted Date Comments Pioglitazone 07/19/2024 Cefaclor Unknown 07/26/2018 As child Empagliflozin Other (Please comment) 05/16/2021 DKA with hospitalization Nsaids High 04/19/2019 Gastric problems Other Reaction(s): gastroparesis, kidney problems, use with caution : hx esophagus damage documented as of this encounter (statuses as of 10/09/2024) Medications Polyethylene Glycol 3350 17 GM Oral [...] Change every 90 days 1 Each 5 10/04/2024 11:12 AM EST 4 Active Omnipod 5 [id number] Pods Gen 5Indications:Ty pe 2 diabetes mellitus [...] Tablets by mouth in the morning. Active Doxycycline Hyclate 50 MG Oral Tablet Delayed Release Take 100 mg by mouth 2 times a day. Active documented as of this encounter (statuses as of 10/09/2024) Active Problems Problem Noted Date Diagnosed Date [...] as of this encounter (statuses as of 10/09/2024) Resolved Problems Problem Noted Date Diagnosed Date [...] as of this encounter (statuses as of 10/09/2024) Immunizations Name Administration Dates Next Due COVID-19 mRNA, LNP-s, No Pre serve, 2-Dose Series (Pfizer) 10/21/2021,03/01/2021,02/07/2021 H1N1 2009 Influenza, IM 11/04/2009 Pneumococcal Conjugate Vacci ne, 20-valent ([id number]) 07/09/2023 Pneumococcal Polysaccharide PPV23 (Pneumovax) 11/03/2015,02/09/2006 Seasonal [...] Telephone Encounter - Nely Randhawa OSA - 10/09/2024 2:42 PM EST Done. 10/09/2024 * Telephone Encounter - Velasquez Valencia MD - 10/04/2024 3:40 PM EST signed * Telephone Encounter - Aditi Treadwell RN - 10/04/2024 10:41 AM EST During patient's most recent hospitalization at [facility], he was recommended to follow up withOrthopaedics due to arthritic left shoulder. He was also recommended to follow up with ENT due to right parotitis as well as Podiatry due to RLE cellulitis. If you agree, please sign the pended referral requests. Thanks, Aditi Treadwell RN, BSN Float Dial Printer [phone] documented in this encounter Plan of Treatment Upcoming Encounters Date Type Department Care Team (Latest Contact Info) Description 4 7:45 AM EST Appointment Radiology, [facility] [address] [facility], [place] [address] 4 2:00 PM EST Office Visit Family [facility], Sharad Cedillo [address] [place] [phone] Velasquez Valencia MD [address] [place] [address] 4 9:40 AM EST Office Visit [facility]acy, [facility] [address] [place] [phone], [place] [address] 5 9:00 AM EST Office Visit Otolaryngology [facility] [address] [facility] [place] [address] Emily Tran [facility]-C [address] [facility] [address] 5 11:00 AM EST Hospital Encounter ENDO [facility], Endoscopy [address], [address], [address] [place] [address] Bipin Moss MD [address] [place] [address] 5 11:00 AM EST - 5 12:30 PM EST Surgery ENDO [facility], Endoscopy Suite, [address], [address] [facility] [place] [address] Bipin Moss MD [address] [place] [address] ESOPHAGOGASTRODUODENOSCOPY (EGD), FLEXIBLE, TRANSORAL, DIAGNOSTIC 5 10:00 AM EST Office Visit Podiatry [facility] [address] [facility] [place] [address] Rhea Ring, DPM [address] [facility] [place] [address] 5 9:30 AM EST Office Visit Orthopaedics [facility] [address] [facility] [place] [address] Augie Dejesus, PAOlayinkaC [address] [facility] [place] [address] 5 8:00 AM EST Office Visit Cardiology, [facility] [address] [facility] [place] [address] Sweta Loving, EMERGENCY TELECOMMUNICATIONS DISPATCHER[address] [place] [address] 5 8:40 AM EST Office Visit Nutrition & Weight Management, [facility] [address] [facility] [place] [address] Thao Lemus PAOlayinkaC [address] [facility] [place] [address] 5 9:30 AM EST Nurse Only Nutrition & Weight Management, [facility] [address] [facility] [place] [address] Funk, Nutrition Ed Class [facility] [address] [facility] [place] [address] 5 1:00 PM EST Office Visit Sleep Disorders Medicine Jerzy Reyes [address] [place] [phone] Cally Hare MD [address] [place] [address] 5 8:00 AM EST Office Visit [facility] [place] [phone] Velasquez Valencia MD [address] [place] [address] 5 9:30 AM EDT Imaging Radiology [facility] [address] [facility] [address] [facility] [place] [address] 5 10:00 AM EDT Office Visit Pulmonary Medicine, [facility] [address] [facility] [place] [address] Vishal Wallace MD [address] [facility] [address] Scheduled Procedures Name Priority Associated Diagnoses Date/Ti me ESOPHAGOGASTRODUODENOSCOPY ( EGD), FLEXIBLE, TRANSORAL, DIAGNOSTIC Pain of upper abdomen 10/26/2024 11:00 AM EST ESOPHAGOGASTRODUODENOSCOPY ( EGD), FLEXIBLE, TRANSORAL, ENDOSCOPIC ULTRASOUND Pain of upper abdomen 10/26/2024 11:00 AM EST COLONOSCOPY FLEXIBLE PROXIMA L DIAGNOSTIC Recall Screening for colon cancer Scheduled Referrals Name Type Priority Associated Diagnoses Order Schedule ORTHOPAEDICS REFERRAL OP Referral Within 10 days (routine) Arthritis of left shoulder region Ordered: 10/04/2024 ADULT/PEDS OTOLARYNGOLOGY REFERRAL OP Referral Within 10 days (routine) Parotitis Ordered: 10/04/2024 PODIATRY REFERRAL OP Referral Within 10 d ays (routine) Cellulitis of right lower leg Ordered: 10/04/2024 Health Maintenance Due Date Last Done Comments HIV Screening 1988 Hepatitis C Screening 1991 Hepatitis B Vaccine (1 of 3 - 19+ 3-dose series) 1992 Cologuard 2018 Fecal Occult Blood Test 2018 Sigmoidoscopy 2018 Zoster Vaccines (1 of 2) 2023 COVID-19 Vaccine ( season) 2024 10/21/2021, 03/01/2021, 02/07/2021 Diabetic Foot Exam 07/09/2024 07/09/2023, 0 03/07/2021, 11/27/2019, Additional history exists HbA1c 11/09/2024 05/09/2024, 02/16, 01/14/2024, Additional history exists Albumin/Creatinine Ratio 01/13/2025 024, 01/05/2023, 09/01/2021, Additional history exists Depression Screening 04/19/2025 04/19/2024 DISCUSS TOBACCO CESSATION (REFER TO SMARTSET #9144) 07/19/2025 07/19/2024, 10/16/2022 GFR 08/02/2025 08/02/2024, 07/18, [...] encounter Medical Devices Implanted Type Area Training Representative Device Identifier Shelf Expiration Date Model / Serial / Lot Suture [place] Dbl Load 4.75mm - [id number] Implanted:Qty: 1 on 12/01/2019 by Judith Condon DO at OR [facility] Right: Shoulder [employer] 07/17/2021 [id number] -2 / / [id number] Suture [place] Dbl Load 5.5mm - [id number] Implanted:Qty: 1 on 12/01/2019 by Judith Condon DO at OR [facility] Right: Shoulder [employer] 09/16/2021 [id number] -2 / / [id number] documented as of this encounter Visit Diagnoses Diagnosis Arthritis of left shoulder region- Primary Unspecified arthropathy, shoulder region Parotitis Sialoadenitis Cellulitis of right lower leg Cellulitis and abscess of leg, except foot Pain of upper abdomen Abdominal pain, other [...] 5:56 PM 03/06/2024 6:20 PM This order reflects the patients wishes and were consensually agreed upon. Question Answer Comments Discussion of Advance Directives occurred with: Patient * Full Code Date Activated Date Inactivated Comments 12/12/2023 7:55 PM 12/14/2023 4:03 PM This order r eflects the patients wishes and were consensually agreed upon. Question Answer Comments Discussion of Advance Directives occurred with: Patient Care Teams Vehicle Trimmer Relationship Specialty Start Date End Date Velasquez Valencia MD PCP - General Family Medicine 09/09/22 documented as of this encounter
--- OUTSIDE RECORDS SUMMARY | 2024-10-10 18:53 | External Medical Summary | Summary of Care ---
Author Name Unknown Organization [facility] Address [address] [facility] [place] [address] Phone [phone] Care Team Providers Care Armament Installer Name Role Phone Velasquez Valencia MD Primary Care Provider +- [phone] Reason for Referral * Evaluate & Treat - Unlimited Visits (Within 10 days (routine)) - Authorized Specialty Diagnoses / Procedures Referred By Bismark brown Referred To Contact Podiatry Diagnoses Cellulitis of right lower leg Velasquez Valencia MD [address] [place] [address] Phone: tel: fax: Referral ID Status Reason Start Date Expiration Date Visits Requested Visits Authorized [id number] Authorized Specialty Services Required 4 [phone] Question Answer Referral Priority Within 10 days (routine) Where should this appointment be scheduled? [facility] Which condition are you referring this patient for? General Podiatry/Other Comments RLE cellulitis; patient is a diabetic. * Evaluate & Treat - Unlimited Visits (Within 10 days (routine)) - Authorized Specialty Diagnoses / Procedures Referred By Bismark brwon Referred To Contact Otolaryngology Diagnoses Parotitis Velasquez Valencia MD [address] [place] [address] Phone: tel: fax: Referral ID Status Reason Start Date Expiration Date Visits Requested Visits Authorized [id number] Authorized Specialty Services Required 4 [phone] Question Answer Referral Priority Within 10 days (routine) Where should this appointment be scheduled? [facility] Reason for Referral Head/Neck/Cancer Conditions Specific Condition: Head/Neck Comments Right parotitis noted on head CT during hospitalization at [facility] (09/30/2024 -10/02/2024). Patient currently asymptomatic. * Evaluate & Treat - Unlimited Visits (Within 10 days (routine)) - Authorized Specialty Diagnoses / Procedures Referred By Bismark brown Referred To Contact Orthopaedic Surgery / Orthopedics Diagnoses Arthritis of left shoulder region Velasquez Valencia MD [address] [place] [address] Phone: tel: fax: Referral ID Status Reason Start Date Expiration Date Visits Requested Visits Authorized [id number] Authorized Specialty Services Required 4 [phone] [...] Care Team (Latest Contact Info) Description 10/04/2024 Grommet Worker Telephone Care Coordination and Integration [address] [place] [address] Aditi Treadwell, NEPTALI [address] [place] [address] Referral (Orthopaedics, ENT, Podiatry) Allergies Active Allergy Reactions Criticality Noted Date Comments Pioglitazone 07/19/2024 Cefaclor Unknown 07/26/2018 As child Empagliflozin Other (Please comment) 05/16/2021 DKA with hospitalization Nsaids High 04/19/2019 Gastric problems Other Reaction(s): gastroparesis, kidney problems, use with caution : hx esophagus damage documented as of this encounter (statuses as of 10/05/2024) Medications Polyethylene Glycol 3350 17 GM Oral [...] 11:12 AM EST 4 Active Omnipod 5 [id number] Pods Gen 5Indications:Ty pe 2 diabetes mellitus [...] as of this encounter (statuses as of 10/05/2024) Active Problems Problem Noted Date Diagnosed Date [...] as of this encounter (statuses as of 10/05/2024) Resolved Problems Problem Noted Date Diagnosed Date [...] as of this encounter (statuses as of 10/05/2024) Immunizations Name Administration Dates Next Due COVID-19 mRNA, LNP-s, No Pre serve, 2-Dose Series (Pfizer) 10/21/2021,03/01/2021,02/07/2021 H1N1 2009 Influenza, IM 11/04/2009 Pneumococcal Conjugate Vacci ne, 20-valent ([id number]) 07/09/2023 Pneumococcal Polysaccharide PPV23 (Pneumovax) 11/03/2015,02/09/2006 Seasonal [...] EST During patient's most recent hospitalization at [facility], he was recommended to follow up withOrthopaedics due to arthritic left shoulder. He was also recommended to follow up with ENT due to right parotitis as well as Podiatry due to RLE cellulitis. If you agree, please sign the pended referral requests. Thanks, Aditi Treadwell RN, BSN [facility] Grommet Worker [phone] documented in this encounter Plan of Treatment Upcoming Encounters Date Type Department Care Team (Latest Contact Info) Description 7:45 AM EST Appointment Radiology, [place] [address] 4 2:00 PM EST Office [address], [place] [phone] Velasquez Valencia MD [address] [place] [address] 4 9:40 AM EST Office Visit [facility] [place] [address] [facility] [place] [phone] [facility] [address] [place] [address] 5 11:00 AM EST Hospital Encounter ENDO [facility], Endoscopy Suite, HFAM 1, [address] [place] [address] Bipin Moss MD [address] [place] [address] 5 11:00 AM EST - 5 12:30 PM EST Surgery ENDO [facility], Endoscopy Suite, HFAM 1, [address] [place] [address] Bipin Moss MD [address] [place] [address] ESOPHAGOGASTRODUODENOSCOPY (EGD), FLEXIBLE, TRANSORAL, DIAGNOSTIC 5 10:00 AM EST Office Visit Podiatry [facility] 132 [facility] [place] [address] Rhea Ring DPM 132 [facility] [place] [address] 5 8:00 AM EST Office Visit Cardiology, [facility] 132 [facility] [place] [address] Sweta Loving CRNP [address] [place] [address] [place] [address] 5 8:40 AM EST Office Visit Nutrition & Weight Management, [facility] 132 [facility] [place] [address] Thao Lemus PA-C 132 [facility] [place] [address] 5 9:30 AM EST Nurse Only Nutrition & Weight Management, [facility] 132 [facility] [place] [address] Funk, Nutrition Ed Class [address] [place] [address] 5 1:00 PM EST Office Visit [facility] [address] [place] [phone] Cally Hare MD [address] [place] [address] [place] [address] 5 8:00 AM EST Office Visit Family [facility] 226 [place] [phone] Velasquez Valencia MD [address] [place] [address] 5 9:30 AM EDT Imaging [facility]iology [facility] 132 [facility] [place] [address] 5 10:00 AM EDT Office Visit Pulmonary Medicine, [address] [place] [address] Vishal Wallace MD [address] [place] [address] Scheduled Procedures Name Priority Associated Diagnoses Date/Ti [...] 11/27/2019, Additional history exists HbA1c 11/09/2024 05/09/2024, 05/2 10/2023, 01/14/2024, Additional history exists Albumin/Creatinine Ratio 01/13/2025 024, 01/05/2023, 09/01/2021, Additional history exists Depression Screening 04/19/2025 04/19/2024 DISCUSS TOBACCO CESSATION (REFER TO SMARTSET #5511) 07/19/2025 07/19/2024, 10/16/2022 GFR 08/02/2025 08/02/2024, 07/18, [...] this encounter Medical Devices Implanted Type Area Fraud Prevention Analyst Device Identifier Shelf Expiration Date Model / Serial / Lot Suture [place] Dbl Load 4.75mm - [id number] Implanted:Qty: 1 on 12/01/2019 by Judith Condon DO at OR [facility] Right: Shoulder [employer] 07/17/2021 AR-2324BCT -2 / / [id number] Suture [place] Dbl Load 5.5mm - [id number] Implanted:Qty: 1 on 12/01/2019 by Judith Condon DO at OR [facility] Right: Shoulder [employer] 09/16/2021 AR-2323BCT -2 / / [id number] documented as of this encounter Visit Diagnoses [...] Advance Directives occurred with: Patient Care Teams Armament Installer Relationship Specialty Start Date End Date Velasquez Valencia MD PCP - General Family Medicine 09/09/22 documented as of this encounter
--- OUTSIDE RECORDS SUMMARY | 2024-10-10 18:53 | External Medical Summary | Summary of Care ---
Author Name Unknown Organization [facility] Address [address] [facility] [place] [address] Phone [phone] Care Team Providers Care Back Tacker Name Role Phone Velasquez Valencia MD Primary Care Provider +1- [phone] Reason for Visit * Precert (Within 10 days (routine)) - Authorized Specialty Diagnoses / Procedures Referred By Bismark brown Referred To Contact Radiology Diagnoses Chest pain, unspecified type Type 2 diabetes mellitus with hemoglobin A1c goal of less than 7.0% (HCC) Body mass index (BMI) of 40.0 to 44.9 in adult ([facility]) Tobacco use disorder Dyslipidemia HTN, goal below 130/80 Procedures NM MYOCARD PERF IMG SPECT MULT STUDIES WITH PHARM INTERV Carlota Willson CRNP [address] [place] [address] Phone: tel: fax: Referral ID Status Reason Start Date Expiration Date V isits Requested Visits Authorized [id number] Authorized Precert 09/17/[phone] Encounter Details Date Type Department Care Team (Latest Contact Info) Description 10/09/2024 11:55 AM EST - 10/09/2024 11:59 PM EST Hospital Encounter Radiology, [facility] [address] [place] [address] Discharge Disposition: Home - Self Care Allergies Active Allergy Reactions Criticality Noted Date Comments Pioglitazone 07/19/2024 Cefaclor Unknown 07/26/2018 As child Empagliflozin Other (Please comment) 05/16/2021 DKA with hospitalization Nsaids High 04/19/2019 Gastric problems Other Reaction(s): gastroparesis, kidney problems, use with caution : hx esophagus damage documented as of this encounter (statuses as of 10/10/2024) Medications Polyethylene Glycol 3350 17 GM Oral [...] 11:12 AM EST 4 Active Omnipod 5 [id number] Pods Gen 5Indications:Ty pe 2 diabetes mellitus [...] as of this encounter (statuses as of 10/10/2024) Active Problems Problem Noted Date Diagnosed Date [...] as of this encounter (statuses as of 10/10/2024) Resolved Problems Problem Noted Date Diagnosed Date [...] as of this encounter (statuses as of 10/10/2024) Immunizations Name Administration Dates Next Due COVID-19 mRNA, LNP-s, No Pre serve, 2-Dose Series ([employer] 10/21/2021,03/01/2021,02/07/2021 H1N1 2009 Influenza, IM 11/04/2009 Pneumococcal Conjugate Vacci ne, 20-valent ([id number]) 07/09/2023 Pneumococcal Polysaccharide PPV23 (Pneumovax) 11/03/2015,02/09/2006 Seasonal [...] EDAlicia Diaz RN * Do you have difficulty dressing [...] Alicia Lazaro RN documented in this encounter Plan of Treatment Upcoming Encounters Date Type Department Care Team (Latest Contact Info) Description 10/10/2024 2:00 PM EST Office Visit [facility] [place] [address] [place] [phone] Velasquez Valencia MD [address] [place] [address] 10/13/2024 9:40 AM EST Office Visit Pharmacy, Sharad Wallace [address] [place] [phone] Sharad [facility] [address] [place] [address] [place] [address] 10/24/2024 9:00 AM EST Office Visit Otolaryngology [facility] [address] [place] [address] Emily Tran PA-C [address] [place] [address] 10/26/2024 11:00 AM EST Hospital Encounter ENDO [facility], Endoscopy Suite, HFAM 1, [address] [place] [facility] [place] [address] Bipin Moss MD [address] [place] [address] 10/26/2024 11:00 AM EST - 10/26/2024 12:30 PM EST Surgery ENDO [facility], Endoscopy Suite, HFAM 1, [address] [place] [facility] [place] [address] Bipin Moss MD [address] [place], [place] [id number] ESOPHAGOGASTRODUODENOSCOPY (EGD), FLEXIBLE, TRANSORAL, DIAGNOSTIC 10/31/2024 10:00 AM EST Office Visit Podiatry [facility] 132 [facility] [place] [address] Rhea Ring DPM [address] [place] [address] 11/03/2024 9:30 AM EST Office Visit Orthopaedics [facility] [place] [address] Augie Dejesus PA-C [address] [place] [address] 11/15/2024 8:00 AM EST Office Visit Cardiology, [facility] 132 [facility] [place] [address] Sweta Loving, SHY [address] [place] [address] 11/17/2024 8:40 AM EST Office Visit Nutrition & Weight Management, [facility] 132 [facility] [place] [address] Thao Lemus PA-C 132 [facility] [place] [address] 11/17/2024 9:30 AM EST Nurse Only Nutrition & Weight Management, [facility] 132 [facility] [place] [address] Funk, Nutrition Ed Class [address] [place] [address] 11/21/2024 1:00 PM EST Office Visit Sleep Disorders Medicine Jerzy Reyes [address] [place] [phone] Cally Hare MD [address] [place] [address] [place] [address] 11/23/2024 8:00 AM EST [facility] [address] [facility] [phone] Velasquez Valencia MD [address] [facility] [place] [address] 01/29/2025 9:30 AM EDT Imaging Radiology [facility] 1st [facility] 132 [facility] [place] [address] 07/09/2025 10:00 AM EDT Office Visit Pulmonary Medicine, [facility] 132 [facility] [place] [address] Vishal Wallace MD [address] [place] [address] Scheduled Procedures Name Priority Associated Diagnoses Date/Ti [...] 11/27/2019, Additional history exists HbA1c 11/09/2024 05/09/2024, 052 10/2023, 01/14/2024, Additional history exists Albumin/Creatinine Ratio 01/13/2025 024, 01/05/2023, 09/01/2021, Additional history exists Depression Screening 04/19/2025 04/19/2024 DISCUSS TOBACCO CESSATION (REFER TO SMARTSET #9856) 07/19/2025 07/19/2024, 10/16/2022 GFR 08/02/2025 08/02/2024, 07/18, [...] this encounter Medical Devices Implanted Type Area Gun Stock Checker Device Identifier Shelf Expiration Date Model / Serial / Lot Suture [place] Dbl Load 4.75mm - [id number] Implanted:Qty: 1 on 12/01/2019 by Judith Condon DO at OR [facility] Right: Shoulder [employer] 07/17/2021 AR-2324BCT -2 / / [id number] Suture [place] Dbl Load 5.5mm - [id number] Implanted:Qty: 1 on 12/01/2019 by Judith Condon DO at OR [facility] Right: Shoulder [employer] 09/16/2021 AR-2323BCT -2 / / [id number] documented as of this encounter Procedures Procedure Name Priority Date/Time Associated Diagnosis Comments NM MYOCARDIAL PERFUSION IMAGING SPECT MULTIPLE STUDIES WITH PHARMACOLOGIC INTERVENTION Routine 10/10/2024 9:40 AM EST Chest pain, unspecified type Type 2 diabetes mellitus with hemoglobin A1c goal of less than 7.0% ([facility]) Body mass index (BMI) of 40.0 to 44.9 in adult ([facility]) Tobacco use disorder Dyslipidemia HTN, goal below 130/80 documented in this encounter Results * NM MYOCARD PERF IMG SPECT MULT STUDIES WITH PHARM INTERV (10/10/2024 9:40 AM EST) Narrative Scheduling, Silent - 10/10/2024 9:41 AM EST Results can be viewed in the patient's cardiology tab of Chart Review for this date of service. Carlota Vargheseella Demetris [facility] F inal Result documented in this encounter Visit Diagnoses Diagnosis Chest pain, unspecified type Type 2 diabetes mellitus with hemoglobin A1c goal of less than 7.0% (HCC) Body mass index (BMI) of 40.0 to 44.9 in adult (HCC) Tobacco use disorder Dyslipidemia Other and unspecified hyperlipidemia HTN, goal below 130/80 Unspecified essential hypertension Chest pain, non-cardiac- Primary Other chest pain Pain of upper abdomen Abdominal pain, other specified site documented in this encounter Administered Medications Inactive Administered Medications - up to 3 most recent administrations Medication Order MAR Action Action Date Dose Rate Site Technetium Tc 99m Sestamibi (Sestamibi) inj 28 millicurie 28 millicurie, Intravenous, ONCE, On 10/09/24 at 1234, For 1 dose, Radiology Medication Routing (Non-IR) Given 10/09/2024 12:25 PM EST 28 millicuries Wrist Left documented in this encounter Advance Directives * [...] Advance Directives occurred with: Patient Care Teams Back Tacker Relationship Specialty Start Date End Date Velasquez Valencia MD PCP - General Family Medicine 09/09/22 documented as of this encounter
--- OUTSIDE RECORDS SUMMARY | 2024-10-10 18:53 | External Medical Summary | Summary of Care ---
Author Name Unknown Organization [facility] Address [address] [place] [address] Phone [phone] Care Team Providers Care Heating Engineer Name Role Phone Velasquez Valencia MD Primary Care Provider +1- [phone] Reason for Visit * Reason Onset Date Comments Appointment 10/04/2024 Podiatry Encounter Details Date Type Department Care Team (Latest Contact Info) Description 10/04/2024 Field Merchandiser Telephone Care Coordination and Integration [address] [place] [address] Aditi Treadwell, NEPTALI [address] [place] [address] Appointment (Podiatry) Allergies Active Allergy Reactions Criticality Noted Date [...] 11:12 AM EST 4 Active Omnipod 5 [id number] Pods Gen 5Indications:Ty pe 2 diabetes mellitus with hemoglobin A1c goal of less than 7.0% (HCC) Use as directed. Change pod every 2 days 45 Each 3 08/18/2024 6:12 PM EDT 4 Active Insulin Aspart 100 UNIT/ML Injection Solution (NovoLOG)Indica tions:Type 2 diabetes mellitus with hemoglobin A1c goal of less than 7.0% ([facility]) Inject up to 120 units daily using Omnipod 5 120 mL 4 08/22/2024 3:39 PM EST Active Additional Information Patient not taking.Reported on 09/22/2024 Haloperidol 1 MG Oral Tablet (Haldol) Take 1 Tablet by mouth 4 times a day as needed. Active Omeprazole 40 MG Oral Capsule Delayed [...] mRNA, LNP-s, No Pre serve, 2-Dose Series (KupiVIP) 10/21/2021,03/01/2021,02/07/2021 H1N1 2009 Influenza, IM 11/04/2009 Pneumococcal Conjugate Vacci ne, 20-valent ([id number]) 07/09/2023 Pneumococcal Polysaccharide PPV23 (Pneumovax) 11/03/2015,02/09/2006 Seasonal [...] Author Yes 04/10/2024 9:27 PM EDT Alicia Esteban, RN documented as of this encounter Mental Status * Because of a physical, mental, or emotional condition, do you have serious difficulty concentrating, remembering, or making decisions? (5 years old or older) Answer Entry Date Author No 04/10/2024 9:27 PM EDT Alicia Esteban, RN documented in this encounter Miscellaneous Notes * Telephone Encounter - Carlota Chappell OSA - 10/05/2024 10:02 AM EST Pt is scheduled for Podiatry and ortho. Carlota Jacobsen * Telephone Encounter - Aditi Treadwell RN - 10/04/2024 4:21 PM EST Patient is in need of a Podiatry appointment and has an active Podiatry referral. Please contact patient to schedule an appointment. Aditi Jacobsen RN, BSN [facility] Field Merchandiser [phone] documented in this encounter Plan of Treatment Upcoming Encounters Date Type Department Care Team (Latest Contact Info) Description 4 7:45 AM EST Appointment Radiology, [address] [address] 4 1:00 PM EST Office Visit Orthopaedics [facility] [address] [place] [address] Thanh Lawler MD [address] [place] [address] 4 2:00 PM EST Office Visit [facility] [place] [address] [place] [phone] Velasquez Valencia MD [address] Count Includes [facility] [place] [phone] 4 9:40 AM EST Office Visit Pharmacy, Sharad Velez [address] [facility] [place] [phone] Sharad [facility] [address] [place], [place] [address] [address] 5 11:00 AM EST Hospital Encounter [facility]O [facility], Endoscopy Suite, HFAM 1, [address] [place] [address] Bipin Moss MD [address] [place] [address] 5 11:00 AM EST - 5 12:30 PM EST Surgery ENDO [facility], Endoscopy Suite, HFAM 1, [address] [place] [address] Bipin Moss MD [address] [place] [address] ESOPHAGOGASTRODUODENOSCOPY (EGD), FLEXIBLE, TRANSORAL, DIAGNOSTIC 5 10:00 AM EST Office Visit Podiatry [facility] 132 [facility] [place] [address] Rhea Ring DPM 132 [facility] [place] [address] 5 8:00 AM EST Office Visit Cardiology, [facility] 132 [facility] [place] [address] Sweta Loving CRNP 400 [facility] [place] [address] 5 8:40 AM EST Office Visit Nutrition & Weight Management, [facility] 132 [facility] [place] [address] Thao Lemus PA-C 132 [facility] [place] [address] 5 9:30 AM EST Nurse Only Nutrition & Weight Management, [facility] 132 [facility] [place] [address] Funk, Nutrition Ed Class [address] [place] [address] 5 1:00 PM EST Office Visit Sleep Disorders Medicine Jerzy Reyes [address] [place] [phone] Cally Hare MD [address] [place], [place] [address] [address] 5 8:00 AM EST Office Visit [facility], [facility] 226 [facility] [phone] Velasquez Valencia MD 226 [facility] [place] [address] 5 9:30 AM EDT Imaging Radiology [facility] 1st [facility] 132 [facility] [place] [address] 5 10:00 AM EDT Office Visit Pulmonary Medicine, [facility] 132 [facility] [place] [address] Vishal Wallace MD [address] [place] [address] Scheduled Procedures Name Priority Associated Diagnoses Date/Ti [...] 04/19/2024 DISCUSS TOBACCO CESSATION (REFER TO SMARTSET #4155) 07/19/2025 07/19/2024, 10/16/2022 GFR 08/02/2025 08/02/2024, 07/18, [...] encounter Medical Devices Implanted Type Area Flight Control Manager Device Identifier Shelf Expiration Date Model / Serial / Lot Suture [place] Dbl Load 4.75mm - [id number] Implanted:Qty: 1 on 12/01/2019 by Judith Condon DO at OR [facility] Right: Shoulder [employer] 07/17/2021 AR-2324BCT -2 / / [id number] Suture [place] Dbl Load 5.5mm - [id number] Implanted:Qty: 1 on 12/01/2019 by Judith Condon DO at OR [facility] Right: Shoulder [employer] 09/16/2021 AR-2323BCT -2 / / [id number] documented as of this encounter Advance Directives [...] Advance Directives occurred with: Patient Care Teams Heating Engineer Relationship Specialty Start Date End Date Velasquez Valencia MD PCP - General Family Medicine 09/09/22 documented as of this encounter
--- OUTSIDE RECORDS SUMMARY | 2024-10-10 18:53 | External Medical Summary | Summary of Care ---
Author Name Unknown Organization [facility] Address [address] [place] [address] Phone [phone] Care Team Providers Care Face And Fill Packer Name Role Phone Velasquez Valencia MD Primary Care Provider [phone]- [phone] Reason for Visit * Reason Onset Date Comments Appointment 10/04/2024 Orthopaedics Encounter Details Date Type Department Care Team (Latest Contact Info) Description 10/04/2024 Damper Maker Telephone Care Coordination and Integration [address] [place] [address] Aditi Treadwell, NEPTALI [address] [place] [address] Appointment (Orthopaedics) Allergies Active Allergy Reactions Criticality Noted Date [...] 11:12 AM EST 4 Active Omnipod 5 [id number] Pods Gen 5Indications:Ty pe 2 diabetes mellitus with hemoglobin A1c goal of less than 7.0% (HCC) Use as directed. Change pod every 2 days 45 Each 3 08/18/2024 6:12 PM EDT 4 Active Insulin Aspart 100 UNIT/ML Injection Solution (NovoLOG)Indica tions:Type 2 diabetes mellitus with hemoglobin A1c goal of less than 7.0% ([facility]) Inject up to 120 units daily [...] mRNA, LNP-s, No Pre serve, 2-Dose Series (Profig) 10/21/2021,03/01/2021,02/07/2021 H1N1 2009 Influenza, IM 11/04/2009 Pneumococcal Conjugate Vacci ne, 20-valent ([id number]) 07/09/2023 Pneumococcal Polysaccharide PPV23 (Pneumovax) 11/03/2015,02/09/2006 Seasonal [...] encounter Miscellaneous Notes * Telephone Encounter - Shelbie Manjarrez OSA - 10/09/2024 9:09 AM EST Images from the original note were not included. Patient is scheduled. Suzanne Arceo OSA [facility] [place] Filter Operator Pool/Class3 days ago BT LVM for patient that the appt for his shoulder needs to be a 30 minute appointment and it cannot beon the same day as his appt for his knee. Augie Dejesus PA-C [place], Brenda K, OSA; Ricky Chung [facility] Oliver Filter Operator Pool/Class3 days ago Appointment cannot be same day. His shoulder requires a 30 minutes "new" visit, thank you Rhea Carr, MED ASSIST Augie Dejesus PA-C3 days ago SR Please advise if you are willing to see patient for both issues in one visit. Suzanne Arceo OSA Ricky Chung Ortho Nurse Pool/Class3 days ago BT I spoke with Mr Akhtar and he does want to reschedule his appointment for his shoulder. He was originally scheduled with gil for shoulder referral says arthritis. Patient is also asking for an appointment to fup for his knee which he has seen augie for. He would like both appts same day. Can Lelandee him for both issues same appt? Or should he be rescheduled with gil for shoulder and augie for knee. And can they be scheduled same day? Thanks * Telephone Encounter - Aditi Treadwell RN - 10/05/2024 4:14 PM EST Per review of [facility], patient was scheduled for an Orthopaedic appointment on 10/10/2024, however canceled the appointment. He is still in need of an Orthopaedic appointment. Please contact patient to schedule an appointment. Thanks, Aditi Treadwell RN, BSN [facility] Damper Maker [phone] * Telephone Encounter - Aditi Treadwell RN - 10/04/2024 4:18 PM EST Patient is in need of an Orthopaedic appointment due to left shoulder arthritis. He does have an active Orthopaedic referral. Please contact patient to schedule an appointment. Thanks, Aditi Treadwell RN, BSN [facility] Damper Maker [phone] documented in this encounter Plan of Treatment Upcoming Encounters Date Type Department Care Team (Latest Contact Info) Description 4 12:30 PM EST Hospital Encounter Radiology, [address] [address] 4 7:45 AM EST Appointment Radiology, [address] [address] 4 2:00 PM EST Office Visit Family [facility], [place] Lak[facility]har[facility] Cedillo [facility] [place] [phone] Velasquez Valencia MD [address] [place] [address] 4 9:40 AM EST Office Visit Pharmacy, [place] Lak[facility]harri Wallace [address] [place] [phone] [place] [id number] [facility] [place] [address] 5 11:00 AM EST Hospital Encounter ENDO [facility], Endoscopy Suite, HFAM 1, [address] [place] [facility] [place] [address] Bipin Moss MD [address] [place] [address] 5 11:00 AM EST - 5 12:30 PM EST Surgery ENDO [facility], Endoscopy Suite, HFAM 1, [address] [place] [address] Bipin Moss MD [address] [place] [address] ESOPHAGOGASTRODUODENOSCOPY (EGD), FLEXIBLE, TRANSORAL, DIAGNOSTIC 5 10:00 AM EST Office Visit Podiatry [facility] [address] [facility] [place] [address] Rhea Ring DPM [address] [place] [address] 5 9:30 AM EST Office Visit Orthopaedics [facility] [address] [facility] [place] [address] Augie Dejesus PA-C [address] [facility] [address] 5 8:00 AM EST Office Visit Cardiology, [facility] [address] [facility] [place] [address] Sweta Loving, SHY [address] [facility] [place] [address] 5 8:40 AM EST Office Visit Nutrition & Weight Management, [facility] [address] [facility] [place] [address] Thao Lemus PA-C [address] [place] [address] 5 9:30 AM EST Nurse Only Nutrition & Weight Management, [facility] [address] [facility] [place] [address] [place], Nutrition Ed Class [address] [place] [address] 5 1:00 PM EST Office Visit Sleep Disorders Medicine Jerzy Reyes [address] [place] [phone] Cally Hare MD [address] [facility] [place] [address] 5 8:00 AM EST Office Visit [facility] [phone] Velasquez [facility] [address] [facility] [address] 5 9:30 AM EDT Imaging Radiology [facility] 1st [facility] [address] [facility] [place] [address] 5 10:00 AM EDT Office Visit Pulmonary Medicine, [address] [place] [address] Vishal Wallace MD [address] [place] [address] Scheduled Procedures Name Priority Associated Diagnoses Date/Ti [...] this encounter Medical Devices Implanted Type Area Pillow Agent Device Identifier Shelf Expiration Date Model / Serial / Lot Suture [place] Dbl Load 4.75mm - [id number] Implanted:Qty: 1 on 12/01/2019 by Judith Condon DO at OR [facility] Right: Shoulder [employer] 07/17/2021 AR-2324BCT -2 / / [id number] Suture [place] Dbl Load 5.5mm - [id number] Implanted:Qty: 1 on 12/01/2019 by Judith Condon DO at OR [facility] Right: Shoulder [employer] 09/16/2021 AR-2323BCT -2 / / [id number] documented as of this encounter Advance Directives [...] Advance Directives occurred with: Patient Care Teams Face And Fill Packer Relationship Specialty Start Date End Date Velasquez Valencia MD PCP - General Family Medicine 09/09/22 documented as of this encounter
--- OUTSIDE RECORDS SUMMARY | 2024-10-10 18:54 | External Medical Summary | Summary of Care ---
Author Name Unknown Organization [facility] Address [address] [place] [address] Phone [phone] Care Team Providers Care Lawn And Garden Technician Name Role Phone Velasquez Valencia MD Primary Care Provider [phone]- [phone] Reason for Visit * Reason Onset Date Comments Appointment 09/18/2024 Sleep Medicine Encounter Details Date Type Department Care Team (Latest Contact Info) Description 09/18/2024 Window Dresser Telephone Care Coordination and Integration [address] [place] [address] Aditi Treadwell, NEPTALI [address] [place] [address] Appointment (Sleep Medicine) Allergies Active Allergy Reactions Criticality Noted Date Comments Pioglitazone 07/19/2024 Cefaclor Unknown 07/26/2018 As child Empagliflozin Other (Please comment) 05/16/2021 DKA with hospitalization Nsaids High 04/19/2019 Gastric problems Other Reaction(s): gastroparesis, kidney problems, use with caution : hx esophagus damage documented as of this encounter (statuses as of 10/03/2024) Medications Polyethylene Glycol 3350 17 GM Oral [...] 9:12 AM EDT 4 Active Omnipod 5 [id number] Pods Gen 5Indications:Ty pe 2 diabetes mellitus with hemoglobin A1c goal of less than 7.0% (HCC) Use as directed. Change pod every 2 days 45 Each 3 08/18/2024 6:12 PM EDT 4 Active Insulin Aspart 100 UNIT/ML Injection Solution (NovoLOG)Indica tions:Type 2 diabetes mellitus with hemoglobin A1c goal of less than 7.0% ([facility]) Inject up to 120 units daily using Omnipod 5 120 mL 4 08/22/2024 3:39 PM EST Active Additional Information Patient not taking.Reported on 09/22/2024 Haloperidol 1 MG Oral Tablet (Haldol) Take 1 Tablet by mouth 4 times a day as needed. Active Omeprazole 40 MG Oral Capsule Delayed Release (PriLOSEC) Take 1 Capsule by mouth in the morning. 90 Capsule 3 Active Dicyclomine HCl 10 MG Oral [...] as of this encounter (statuses as of 10/03/2024) Active Problems Problem Noted Date Diagnosed Date [...] as of this encounter (statuses as of 10/03/2024) Resolved Problems Problem Noted Date Diagnosed Date [...] as of this encounter (statuses as of 10/03/2024) Immunizations Name Administration Dates Next Due COVID-19 mRNA, LNP-s, No Pre serve, 2-Dose Series (NetSpark) 10/21/2021,03/01/2021,02/07/2021 H1N1 2009 Influenza, IM 11/04/2009 Pneumococcal Conjugate Vacci ne, 20-valent ([id number]) 07/09/2023 Pneumococcal Polysaccharide PPV23 (Pneumovax) 11/03/2015,02/09/2006 Seasonal [...] Telephone Encounter - Aditi Treadwell RN - 10/03/2024 8:44 AM EST Per review of [facility], patient has a Sleep Medicine appointment on 11/21/2024. Aditi Treadwell RN, BSN [facility] Window Dresser [phone] * Telephone Encounter - Aditi Treadwell RN - 09/18/2024 4:03 PM EST Patient is in need of an appointment with Sleep Medicine. He does have an active referral. Please contact patient to schedule an appointment. Thanks, Aditi Treadwell RN, BSN [place] Window Dresser [phone] documented in this encounter Plan of Treatment Upcoming Encounters Date Type Department Care Team (Latest Contact Info) Description 4 7:45 AM EST Appointment Radiology, [facility] [address] [place] [address] 4 9:40 AM EST Office Visit Pharmacy, [facility] [phone] [place], [address] [address] 5 11:00 AM EST Hospital Encounter [facility], Endoscopy Suite, HFAM 1, [address] [place] [address] Bipin Moss MD [address] [place] [address] 5 11:00 AM EST - 5 12:30 PM EST Surgery [facility], Endoscopy Suite, HFAM 1, [address] [place] [address] Bipin Moss MD [address] [place] [address] ESOPHAGOGASTRODUODENOSCOPY (EGD), FLEXIBLE, TRANSORAL, DIAGNOSTIC 5 8:00 AM EST Office Visit Cardiology, [facility] [address] [facility] [place] [address] Sweta Loving CRNP [address] [place] [address] 5 8:40 AM EST Office Visit Nutrition & Weight Management, [facility] 132 [facility] [place] [address] Thao Lemus PA-C [address] [facility] [place] [address] 5 9:30 AM EST Nurse Only Nutrition & Weight Management, [facility] [address] [facility] [place] [address] Funk, Nutrition Ed Class 1 [facility] [address] [facility] [place] [address] 5 1:00 PM EST Office Visit Sleep Disorders Medicine Jerzy Reyes [address] [place] [phone] Cally Hare MD [address] [facility] [place] [address] 5 8:00 AM EST Office Visit [facility] [address] [facility] [place] [phone] Velasquez Valencia MD [address] [facility] [place] [address] 5 9:30 AM EDT Imaging Radiology [facility] 1st [facility] [address] [facility] [place] [address] 5 10:00 AM EDT Office Visit Pulmonary Medicine, [facility] [address] [facility] [place] [address] Vishal Wallace MD [address] [facility] [place] [address] Scheduled Procedures Name Priority Associated Diagnoses Date/Ti [...] 04/19/2024 DISCUSS TOBACCO CESSATION (REFER TO SMARTSET #[id number]) 07/19/2025 07/19/2024, 10/16/2022 GFR 08/02/2025 08/02/2024, 07/18, [...] this encounter Medical Devices Implanted Type Area Parking Meter Installer Device Identifier Shelf Expiration Date Model / Serial / Lot Suture [place] Dbl Load 4.75mm - [id number] Implanted:Qty: 1 on 12/01/2019 by Judith Condon DO at OR [facility] Right: Shoulder [employer] 07/17/2021 AR-2324BCT -2 / / [id number] Suture [place] Dbl Load 5.5mm - [id number] Implanted:Qty: 1 on 12/01/2019 by Judith Condon DO at OR [facility] Right: Shoulder [employer] 09/16/2021 AR-2323BCT -2 / / [id number] documented as of this encounter Advance Directives [...] Advance Directives occurred with: Patient Care Teams Lawn And Garden Technician Relationship Specialty Start Date End Date Velasquez Valencia MD [address] [place] [facility] [place] [address] PCP - General Family Medicine 11/23/22 documented as of this encounter
--- OUTSIDE RECORDS SUMMARY | 2024-10-10 18:54 | External Medical Summary | Summary of Care ---
Author Name Unknown Organization [facility] Address [address] [place] [address] Phone [phone] Care Team Providers Care Ceramist Name Role Phone Velasquez Valencia MD Primary Care Provider +- [phone] Encounter Details Date Type Department Care Team (Late st Contact Info) Description 07/03/[address] [address] Velasquez Valencia MD [address] [place] [id number] Allergies Active Allergy Reactions Criticality Noted Date Comments Pioglitazone 07/19/2024 Cefaclor Unknown 07/26/2018 As child Empagliflozin Other (Please comment) 05/16/2021 DKA with hospitalization Nsaids High 04/19/2019 Gastric problems Other Reaction(s): gastroparesis, kidney problems, use with caution : hx esophagus damage documented as of this encounter (statuses as of 10/02/2024) Medications Polyethylene Glycol 3350 17 GM Oral Packet (Miralax) Mix 1 Packet in 4 to 8 ounces of any beverage and drink by mouth in the morning. 14 Each 4 11:40 AM EST 024 Active Ondansetron HCl 4 MG Oral Tablet Take 1 Tablet by mouth every 8 hours as needed for Nausea. 20 Tablet 4 11:40 AM EST 024 Active BD Pen Needle Short U/F 31G X 8 MM (Insulin Pen Needle)Indicati ons:Type 2 diabetes mellitus with hemoglobin A1c goal of less than 7.0% (HCC) Use to inject insulin 5 times daily 500 Each 3 4 8:17 AM EDT 024 Active Additional Information Patient not taking.Reported on 09/22/2024 Polyethylene Glycol 3350 17 GM/SCOOP Oral Powder (Miralax) Take 1 scoop daily in 8 ounces of water. 510 g 5 024 Active OneTouch Verio In Vitro Strip (Glucose Blood)Indicatio ns:Type 2 diabetes mellitus with hemoglobin A1c goal of less than 7.0% (HCC) Use to check blood sugar once daily as needed 100 Strip 4 5:28 PM EDT 024 Active Additional Information Patient not taking.Reported on 09/22/2024 OneTouch Delica Lancets 33GIndications: Type 2 diabetes mellitus with hemoglobin A1c goal of less than 7.0% (HCC) Use to check blood sugars once daily as needed 100 Each 4 5:28 PM EDT 024 Active Additional Information Patient not taking.Reported on 09/22/2024 Albuterol Sulfate HFA 108 (90 Base) MCG/ACT Inhalation Aerosol SolutionIndicat ions:RSV bronchitis inhale 2 puffs by mouth and INTO THE LUNGS every 6 hours if needed for cough shortness of breath or WITHDRAWAL SYMPTOMS 54 g 3 023 2023 Discontinued(M edication List Clean Up) Losartan Potassium 100 MG Oral Tablet (Cozaar) Take 1 Tablet by mouth in the morning. 90 Tablet 3 4 9:01 AM EDT 023 2023 Discontinued(M edication/Dose Changed) Metamucil 0.52 GM Oral Capsule (Psyllium) Take [...] 024 2023 Discontinued(M edication List Clean Up) Toujeo SoloStar 300 UNIT/ML Subcutaneous Solution Pen-injector (Insulin Glargine (1 Unit Dial))Indicatio ns:Type 2 diabetes mellitus with hemoglobin A1c goal of less than 7.0% (HCC) Inject 40 units twice daily- this replaces lantus 54 mL 4 4 12:19 PM EDT 024 2023 Discontinued(E nd of Procedure) Insulin Aspart FlexPen 100 UNIT/ML Subcutaneous Solution Pen-injectorInd ications:Type 2 diabetes mellitus with hemoglobin A1c goal of less than 7.0% (HCC) Inject 32 units with breakfast 22 units with lunch and 22 units with supper plus CF of 1:12 over 150. Max daily dose of 115 units 120 mL 4 4 10:04 AM EDT 024 2023 Discontinued(E nd of Procedure) Pioglitazone HCl 45 MG Oral Tablet (Actos)Indicati ons:Type 2 diabetes mellitus with hemoglobin A1c goal of less than 7.0% (HCC) Take 1 Tablet by mouth in the morning. Please fill in about a month- patient is going to be using up his current supply of 15 mg and 30 mg tablets. 90 Tablet 4 4 7:22 AM EDT 024 2023 Discontinued(E nd of Procedure) traMADol HCl 50 MG Oral Tablet (Ultram)Indicat ions:Abdominal pain, epigastric Take 1 Tablet by mouth every 6 hours as needed for Pain, Severe. 40 Tablet 024 2023 Discontinued(M edication List Clean Up) hydroCHLOROthia zide 25 MG Oral Tablet (Hydrodiuril) Take 1 Tablet by mouth in the morning. 023 2023 Discontinued(M edication/Dose Changed) Lidocaine 4 % External Patch (Aspercreme) Place 1 Patch over 12 hours topically on the skin in the morning. 30 Patch 4 1:54 PM EDT 2023 Discontinued(M edication List Clean Up) Metoclopramide HCl 10 MG Oral Tablet (Reglan) take 1 tablet by mouth three times a day 30 MINUTES before MEALS 270 Tablet 1 4 7:22 AM EDT 2023 Discontinued(M edication List Clean Up) traMADol HCl 50 MG Oral Tablet (Ultram)Indicat ions:Abdominal pain, generalized,Pha ntom limb pain (HCC) Take 1 Tablet by mouth every 6 hours as needed for Pain, Severe. Take 1-2 tabs by mouth every 6 hours as needed for severe pain in want to do it due 8 it has been 80 Tablet 2023 Discontinued(M edication List Clean Up) Alum & Mag Hydroxide-Simet h 400-400-40 MG/5ML Oral Suspension (Mi-Acid II)Indications: Constipation, unspecified constipation type Take 15 ml every 6 hours as needed for constipation 355 mL 3 024 2023 Discontinued(M edication List Clean Up) Dicyclomine HCl 10 MG Oral Capsule (Bentyl) TAKE 1 CAPSULE BY MOUTH FOUR TIMES DAILY 360 Capsule 024 2023 Discontinued Atorvastatin Calcium 20 MG Oral Tablet (Lipitor) Take 1 Tablet by mouth in the morning. 90 Tablet 3 024 2023 Discontinued(M edication List Clean Up) Movantik 25 MG Oral Tablet (Naloxegol Oxalate) take 1 tablet by mouth in the morning 30 Tablet 5 024 2023 Discontinued(M edication List Clean Up) Gabapentin 100 MG Oral Capsule (Neurontin)Yanet cations:Neuropa thy TAKE 2 CAPSULES BY MOUTH EVERY 12 HOURS 120 Capsule 3 024 2023 Discontinued(M edication List Clean Up) Cyclobenzaprine HCl 10 MG Oral Tablet (Flexeril)Indic ations:Lumbar disc herniation TAKE 1 TABLET BY MOUTH AT BEDTIME ONLY NEEDED 30 Tablet 024 2023 Discontinued(M edication List Clean Up) oxyCODONE HCl 5 MG Oral Tablet (Oxy IR)Indications: Lumbar disc herniation Take 1 Tablet by mouth every 8 hours as needed for Pain, Severe. 20 Tablet 024 2023 Discontinued(M edication List Clean Up) Torsemide 10 MG Oral Tablet (Demadex) Take 1 Tablet by mouth in the morning. 30 Tablet 5 024 2023 Discontinued(M edication/Dose Changed) metFORMIN HCl 500 MG Oral Tablet (Glucophage)Ind ications:Type 2 diabetes mellitus with hemoglobin A1c goal of less than 7.0% (HCC) Take 2 Tablets by mouth in the morning and 2 Tablets in the evening. 360 Tablet 3 4 5:32 PM EDT 024 2023 Discontinued(E nd of Procedure) Pantoprazole Sodium 40 MG Oral Tablet Delayed Release (Protonix) TAKE 1 TABLET BY MOUTH TWICE A DAY 180 Tablet 3 024 2023 Discontinued(M edication List Clean Up) Famotidine 20 MG Oral Tablet (Pepcid) TAKE ONE TABLET BY MOUTH NIGHTLY AT BEDTIME 90 Tablet 3 024 2023 Discontinued(M edication List Clean Up) documented as of this encounter (statuses as of 10/02/2024) Active Problems Problem Noted Date Diagnosed Date [...] as of this encounter (statuses as of 10/02/2024) Resolved Problems Problem Noted Date Diagnosed Date [...] as of this encounter (statuses as of 10/02/2024) Immunizations Name Administration Dates Next Due COVID-19 mRNA, LNP-s, No Pre serve, 2-Dose Series (FriendCode) 10/21/2021,03/01/2021,02/07/2021 H1N1 2009 Influenza, IM 11/04/2009 Pneumococcal Conjugate Vacci ne, 20-valent ([id number]) 07/09/2023 Pneumococcal Polysaccharide PPV23 (Pneumovax) 11/03/2015,02/09/2006 Seasonal Influenza Vac., MDV , IM, 0.5 mL (Fluzone) 06/27/2015,07/07/2010,09/02/2009,10/26 Seasonal Influenza, PF, 6 M & above, IM , (FluLaval or Fluzone) 07/09/2023,10/16/2022,07/31/2021,09/16,07/12/2019,07/05/2018 Seasonal Influenza, Quadriva lent, No Preserve, IM 05/24/2017,07/24/2016 TDAP (age 10 and older)(Boostrix) 05/01/2018 documented [...] Telephone Encounter - Mel Walker LPN - 07/04/2024 11:30 AM EDT OV not is not signed to be able to attach and send with orders. Please sign OV note and give printed out forms and insurance scans that were placed on your desk back to nursing. * Telephone Encounter - Carlota Ramirez OSA - 07/03/2024 2:06 PM EDT Lisandra From [facility] Is calling in asking if the DME orders for the electric scooter andlift chair can be faxed over to [employer] as soon as possible so the pt can get the supplies. documented in this encounter Plan of Treatment Upcoming Encounters Date Type Department Care Team (Latest Contact Info) Description 4 7:45 AM EST Appointment Radiology, [facility] [address] [place] [address] 4 9:40 AM EST Office Visit Pharmacy, [address] [phone] [address] [address] 5 11:00 AM EST Hospital Encounter ENDO [facility], Endoscopy Suite, [facility] 1, [address] [facility] [place] [address] Bipin Moss MD [address] [facility] [place] [address] 5 11:00 AM EST - 5 12:30 PM EST Surgery ENDO [facility], Endoscopy Suite, HFAM 1, [address] [place] [address] Bipin Moss MD [address] [place] [address] ESOPHAGOGASTRODUODENOSCOPY (EGD), FLEXIBLE, TRANSORAL, DIAGNOSTIC 5 8:00 AM EST Office Visit Cardiology, [facility] [address] [facility] [place] [address] Sweta Loving CRNP [address] [facility] [place] [address] 5 8:40 AM EST Office Visit Nutrition & Weight Management, [facility] 132 [facility] [place] [address] Thao Lemus PA-C [address] [facility] [address] 5 9:30 AM EST Nurse Only Nutrition & Weight Management, [facility] 132 [facility] [place] [address] Funk, Nutrition Ed Class [address] [facility] 132 [facility] [place] [address] 5 1:00 PM EST Office Visit Sleep Disorders Medicine [facility] [place] [address] [facility] [place] [phone] Cally Hare MD [address] [facility] [place] [address] 5 8:00 AM EST Office Visit [facility] [address] [facility] [place] [address] Velasquez Valencia MD [address] [place] [address] 5 9:30 AM EDT Imaging [facility] 132 [facility] [place] [address] 5 10:00 AM EDT Office Visit Pulmonary Medicine, [facility] [address] [facility] [place] [address] Vishal Wallace MD [address] [facility] [place] [address] Scheduled Procedures Name Priority Associated Diagnoses Date/Ti [...] 04/19/2024 DISCUSS TOBACCO CESSATION (REFER TO SMARTSET #[id number]) 07/19/2025 07/19/2024, 10/16/2022 GFR 08/02/2025 08/02/2024, 07/18, [...] this encounter Medical Devices Implanted Type Area Double Head Machine Operator Device Identifier Shelf Expiration Date Model / Serial / Lot Suture [place] Dbl Load 4.75mm - [id number] Implanted:Qty: 1 on 12/01/2019 by Judith Condon, DO at OR [facility] Right: Shoulder [employer] 07/17/2021 AR-2324BCT -2 / / [id number] Suture [place] Dbl Load 5.5mm - [id number] Implanted:Qty: 1 on 12/01/2019 by Judith Condon DO at OR [facility] Right: Shoulder [employer] 09/16/2021 AR-2323BCT -2 / / [id number] documented as of this encounter Advance Directives [...] Advance Directives occurred with: Patient Care Teams Ceramist Relationship Specialty Start Date End Date Velasquez Valencia MD [address] [facility] [place] [address] PCP - General Family Medicine 09/09/22 documented as of this encounter
--- OUTSIDE RECORDS SUMMARY | 2024-10-10 18:54 | External Medical Summary | Summary of Care ---
Author Name Unknown Organization [facility] Address [address] [facility] [place] [address] Phone [phone] Care Team Providers Care Practice Manager Name Role Phone Velasquez Valencia MD Primary Care Provider [phone]- [phone] Encounter Details Date Type Department Care Team (Late st Contact Info) Description 10/04/2024 Population Health External Data Unspecified Department Allergies Active Allergy Reactions Criticality Noted Date Comments Pioglitazone 07/19/2024 Cefaclor Unknown 07/26/2018 As child Empagliflozin Other (Please comment) 05/16/2021 DKA with hospitalization Nsaids High 04/19/2019 Gastric problems Other Reaction(s): gastroparesis, kidney problems, use with caution : hx esophagus damage documented as of this encounter (statuses as of 10/04/2024) Medications Polyethylene Glycol 3350 17 GM Oral [...] 9:12 AM EDT 4 Active Omnipod 5 KvsH1Q3 Pods Gen 5Indications:Ty pe 2 diabetes mellitus [...] as of this encounter (statuses as of 10/04/2024) Active Problems Problem Noted Date Diagnosed Date [...] as of this encounter (statuses as of 10/04/2024) Resolved Problems Problem Noted Date Diagnosed Date [...] (11/14/2009): Per HTN Taxonomy. Diabetic polyneuropathy 04/12/2007 10/0 04/2016 Overview (01/03/2016): ICD-10 update of inactive term [...] as of this encounter (statuses as of 10/04/2024) Immunizations Name Administration Dates Next Due COVID-19 mRNA, LNP-s, No Pre serve, 2-Dose Series ([employer]) 10/21/2021,03/01/2021,02/07/2021 H1N1 2009 Influenza, IM 11/04/2009 Pneumococcal Conjugate Vacci ne, 20-valent ([id number]) 07/09/2023 Pneumococcal Polysaccharide PPV23 (Pneumovax) 11/03/2015,02/09/2006 Seasonal [...] Description 4 7:45 AM EST Appointment Radiology, [facility] [address] [facility] [place] [address] 4 2:00 PM EST Office Visit [facility] [place] [facility] [address] [facility] [place], [place] [address] Velasquez Valencia MD [address] [facility] [place] [id number] 4 9:40 AM EST Office Visit [facility]acy, [place] [facility] [address] [facility] [place] [phone] [place] [id number] 5 11:00 AM EST Hospital Encounter [facility], Endoscopy Suite, HFAM 1, [address] [place] [address] Bipin Moss MD [address] [place] [address] 5 11:00 AM EST - 5 12:30 PM EST Surgery ENDO [facility], Endoscopy Suite, HFAM 1, [address] [place] [address] Bipin Moss MD [address] [place] [address] ESOPHAGOGASTRODUODENOSCOPY (EGD), FLEXIBLE, TRANSORAL, DIAGNOSTIC 5 8:00 AM EST Office Visit Cardiology, [facility] 132 [facility] [place], [place] [address] Sweta Loving CRNP 400 [facility] [place] [address] 5 8:40 AM EST Office Visit Nutrition & Weight Management, [facility] 132 [facility] [place] [address] Thao Lemus PA-C 132 [facility] [place] [address] 5 9:30 AM EST Nurse Only Nutrition & Weight Management, [facility] 132 [facility] [place] [address] Funk, Nutrition Ed Class [address] [place] [address] 5 1:00 PM EST Office Visit Sleep Disorders Medicine [facility] [place] [address] [facility] [place] [phone] Cally Hare MD [address] [place] [address] [place] [address] 5 8:00 AM EST Office Visit [facility] [address] [place] [phone] Velasquez Valencia MD [address] [place] [address] 5 9:30 AM EDT Imaging Radiology [facility]st [facility] 132 [facility] [place] [address] 5 10:00 AM EDT Office Visit Pulmonary Medicine, [facility] 132 [facility] [place] [address] Vishal Wallace MD [address] [place] [address] Scheduled Procedures Name Priority Associated Diagnoses Date/Ti [...] 04/19/2024 DISCUSS TOBACCO CESSATION (REFER TO SMARTSET #[id number]) 07/19/2025 07/19/2024, 10/16/2022 GFR 08/02/2025 08/02/2024, 07/18, [...] encounter Medical Devices Implanted Type Area Supervisor [employer] Device Identifier Shelf Expiration Date Model / Serial / Lot Suture [place] Dbl Load 4.75mm - [id number] Implanted:Qty: 1 on 12/01/2019 by Judith Condon DO at OR [facility] Right: Shoulder [employer] 07/17/2021 AR-2324BCT -2 / / [id number] Suture [place] Dbl Load 5.5mm - [id number] Implanted:Qty: 1 on 12/01/2019 by Judith Condon DO at OR [facility] Right: Shoulder [employer] 09/16/2021 AR-2323BCT -2 / / [id number] documented as of this encounter Advance Directives [...] Advance Directives occurred with: Patient Care Teams Practice Manager Relationship Specialty Start Date End Date Velasquez Valencia MD [address] [facility] [place] [address] PCP - General Family Medicine 09/09/22 documented as of this encounter
[2024-10-10 19:04] LABS: Basophils # (auto) 0.06 K/uL (0.00-0.20); Basophils % (auto) 0.7 %; Eosinophils % (auto) 3.6 %; Hematocrit (blood only) 39.2 % (42.0-52.0); Hemoglobin 12.7 g/dl (14.0-18.0); Immature Granulocytes # (auto) 0.11 K/uL (0.01-0.20); Immature Granulocytes % (auto) 1.3 %; Lymphocytes # (auto) 2.19 K/uL (1.20-3.40); Lymphocytes % (auto) 26.4 %; Mean Corpuscular Hemoglobin 26.5 pg (25.0-34.0); Mean Corpuscular Hgb Conc 32.4 g/dL (32.0-36.0); Mean Corpuscular Volume 81.8 fL (80.0-100.0); Mean Platelet Volume 9.4 fL (9.4-12.4); Monocytes % (auto) 9.6 %; Neutrophils # (auto) 4.84 K/uL (1.40-6.50); Neutrophils % (auto) 58.4 %; Platelet Count 239 K/uL (130-400); RDW Coefficient of Variation 14.2 % (11.5-14.5); RDW Standard Deviation 41.8 fL (36.4-46.3); Red Blood Count 4.79 M/uL (4.70-6.10)
--- NOTE | 2024-10-10 19:04 | Emergency Department Note ---
Impression & Plan Precordial chest pain, Abnormal stress test, Acute hyperglycemia ED Provider Note NAME: ROBERT BARAJAS Jr AGE: 48 SEX: M : 1975 ARRIVES VIA: Ambulance INFORMANT: [Patient][ems] ED PROVIDER(S): [Jaydon Brewer MD] CHIEF COMPLAINT: Chest pain HISTORY OF PRESENT ILLNESS: Patient is a 48-year-old male who has cardiac risk factors. He had a chemical stress test performed yesterday and he states that something was abnormal. He saw his doctor's office today and the doctor's office felt he was likely going to undergo a cardiac catheterization as a next test. The patient states that today, about an hour ago, he was sitting and began noticing left chest pain and shortness of breath. He states that his sugar was high at over 400. He was brought by EMS. The patient did receive 2 nitro sprays, 4 baby aspirin and 100 mcg of IV fentanyl, none of these interventions seemed to help. The patient has not had cough or cold. No fever. He was discharged from our hospital 8 days ago with a diagnosis of atypical chest pain. Lexiscan nuclear stress test results: Positive for reversible ischemia. There is a moderate size perfusion defect of moderate intensity in the anterior wall that is present at rest and stress but worse with stress suggestive of anterior infarct with meek-infarct ischemia. PMHx/PSHx/Social Hx: See Below PHYSICAL EXAM: GENERAL: Patient is in no acute distress. HEENT: No acute trauma, normocephalic atraumatic, mucous membranes moist, no nasal congestion. NECK: No stridor, no adenopathy, no meningismus, trachea is midline. LUNGS: Clear to auscultation bilaterally, no wheeze, no rhonchi, breath sounds equal. HEART: Subtle systolic murmur, regular rate and rhythm. Heart tones distant. Chest: Nontender chest wall. ABDOMEN: Soft, nontender, no peritonitis. Obese. EXTREMITIES: No cyanosis, full range of motion of all the joints without pain or difficulty. Left foot below the knee amputation noted. Mild right sided pedal edema. NEUROLOGIC: Oriented x 3, no acute motor or sensory deficits, no focal weakness. SKIN: No jaundice, no diaphoresis. DIFFERENTIAL DIAGNOSIS: Cardiac ischemia, musculoskeletal pain, pneumonia, pneumothorax, electrolyte imbalance, among others. EMERGENCY DEPARTMENT PROCEDURES: MEDICAL DECISION MAKING: There is no leukocytosis. A mild anemia was seen. The anemia is baseline looking back at previous values. There was a normal platelet count. No coagulopathy. No renal failure or acidosis. Glucose is quite high at over 400. No concerning liver enzyme elevation. No evidence for pancreatitis. ECG shows a sinus tachycardia without any acute ischemic change. Cardiac enzyme testing x 1 is not consistent with acute cardiac injury. Chest x-ray does not show pneumonia or pneumothorax. On exam, I cannot reproduce the patient's chest discomfort. Patient received IV morphine for pain, 1 inch of nitroglycerin paste. He was given IV Tylenol. He received IV insulin because of the higher blood sugar. No additional aspirin was given as he had received aspirin orally in route. His blood sugar improved with insulin treatment, repeat POC glucose was 246. The patient has an abnormal stress test that was performed yesterday. He presents with chest pain. I do think he deserves a hospital stay and potentially, a cardiac catheterization. I did speak with the patient and case management, the on-call hospitalist was consulted. The patient is currently resting comfortably, he feels improved. Prior/Outside records/notes reviewed: Today's EMS notes describing his presentation and transport to this hospital. ECG per my interpretation: Indication was chest pain. The ECG shows a sinus tachycardia with a rate of 104. There is an incomplete right bundle branch block. There is no acute ST elevation, no PVCs. The QTc is 470. Continuous Cardiac Monitoring per my interpretation: An order was placed for continuous cardiac monitoring. The monitor shows a rate of 101 with sinus tachycardia. Imaging/x-ray results per my interpretation: Chest x-ray shows some parenchymal congestion secondary likely to his size versus some increased fluid. There was no pneumonia. Chronic Medical/Social conditions affecting care: Mild intellectual disability Care/Management discussed with: Case management, the on-call hospitalist. Level of care consideration(s): After review of the information above and other included data: --I believe the patient requires escalation of care to admission DISPOSITION: Admission Past Med/Surg History Problem List (Updated 10/10/24 @ 20:19 by Jaydon Brewer MD) Acute hyperglycemia (Acute) Abnormal stress test (Acute) Precordial chest pain (Acute) HTN, goal below 130/80 Diarrhea (Acute) Chest pain (Acute) Generalized pain (Acute) Hyperglycemia due to type 2 diabetes mellitus (Acute) Chest pain (Acute) Chest pain Atypical chest pain Noncompliance with CPAP treatment Hypomagnesemia (Acute) Elevated lactic acid level (Acute) PASHA (acute kidney injury) (Acute) Abdominal pain (Acute) Acute and chronic respiratory failure with hypercapnia Shortness of breath (Acute) 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 Garcia Morbid obesity (Acute) Chronic respiratory failure with hypercapnia Diabetic peripheral neuropathy associated with type 2 diabetes mellitus Loss of protective sensation of skin of foot Epigastric abdominal pain Encounter for pre-operative examination Colon polyp Medical History Chronic diastolic heart failure Volume overload Arthritis Low magnesium level History of RSV infection & flu a few months ago. Tachycardia chronic high heart rate - unknown etiology - a few months ago increased dose of metoprolol. Rhinovirus dx May 23 [facility] & another illness dx - ? name of /antibiotic and inhalers for. feeling better: only symptom : sore throat. COPD (chronic obstructive pulmonary disease) ? dx of Peripheral neuropathy Diabetes mellitus, type 2 Hypertension Tobacco use Restrictive lung disease Elevated liver function tests History of DVT (deep vein thrombosis) "years ago">no known cause Tussive syncope "occurred only one time, no recent issues" Esophagitis Osteoarthritis Hx of pancreatitis resolved GERD (gastroesophageal reflux disease) Cardiac murmur A CHILD Erectile dysfunction MRSA (methicillin resistant Staphylococcus aureus) carrier over 2 yrs ago>"not sure where it was" Intellectual disability Obstructive sleep apnea cpap Obesity IBS (irritable bowel syndrome) History of ventricular tachycardia "nonsustained" Surgical History History of appendectomy 02/10/2023 History of reduction of nasal fracture 09/25/21-Dr. Garcia Status post incision and drainage LLE History of shoulder surgery right-2019 H/O foot surgery LEFT-2018 History of arthroscopy LEFT [id number] History of esophagogastroduodenoscopy (EGD) History of colonoscopy with most recent attempt: failed prep. Told would need a 2 day prep prior to colonoscopy in Sep 2023. History of tooth extraction History of tonsillectomy and adenoidectomy 1979 Family History Brother Family history of diabetes mellitus Environmental allergies Asthma Mother Family history of diabetes mellitus Hypertension Environmental allergies Father Family history of diabetes mellitus Hypertension Heart disease Grandfather (Paternal) Lung cancer smoker Aunt Bleeding disorder Other No family history of adverse response to anesthesia Social History Smoking Status: Current every day smoker Tobacco Type: Cigarettes Age Started Using Tobacco: 14; Cigarettes Per Day: 20; Second Hand Exposure: No; Do You Dip or Chew Tobacco: No; Hx Alcohol Use: No Hx Substance Use: No Preferred Language: Libyan Communication Ability: Effective Associate Professor Of Economics Required: No Beliefs That Will Affect Care: None marital status: / marital status details: single at this time Current Living Situation: Significant Other Current Living Situation Comment: lives with mom current occupational status: employed 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 Cephalosporins Allergy Unknown Unknown Verified 09/30/24 18:34 empagliflozin AdvReac Unknown put me Verified 09/30/24 18:34 [From Jardiance] into ketoacidosis? NSAIDS (Non-Steroidal AdvReac Unknown use with Verified 09/30/24 18:34 Anti-Inflamma caution : hx esophagus damage Home Meds Home Medications Medication Instructions Recorded Confirmed dicyclomine 10 mg capsule 10 mg PO QID PRN Diarrhea 05/01/20 10/10/24 metoprolol succinate 100 mg 100 mg PO BID 09/30/24 10/10/24 tablet,extended release 24 hr polyethylene glycol 3350 17 gram 17 g PO DAILY 09/30/24 10/10/24 oral powder packet haloperidol 1 mg tablet 1 mg QAM 10/10/24 10/10/24 Previous Rx's Medication Instructions Recorded aspirin 81 mg tablet,delayed 81 mg PO DAILY 30 days #30 tabs 09/17/24 release atorvastatin 20 mg tablet 20 mg PO HS 30 days #30 tabs 09/17/24 famotidine 20 mg tablet 20 mg PO HS 30 days #30 tabs 09/17/24 losartan 50 mg tablet 50 mg PO BID 30 days #30 tabs 09/17/24 omeprazole 40 mg capsule,delayed 40 mg PO DAILYBB 30 days #30 caps 09/17/24 release spironolactone 25 mg tablet 25 mg PO DAILY 30 days #30 tabs 09/17/24 terazosin 1 mg capsule 1 mg PO HS 30 days #30 caps 09/17/24 torsemide 10 mg tablet 20 mg (2 x 10 mg) PO DAILY 30 days 09/17/24 #60 tabs diclofenac sodium 1 % topical gel 2.25 inch topical QID #100 grams 10/02/24 doxycycline hyclate 100 mg capsule 100 mg PO BID #7 caps 10/02/24 Results & Data (ED) Vital Signs Vital Signs - 24 hr 10/10/24 18:49 10/10/24 18:49 10/10/24 18:49 Temperature 36.8 C Temperature Source Oral Pulse Rate 100 H Pulse Rate [Apical] Pulse Rhythm Regular Pulse Strength Normal Respiratory Rate 14 Blood Pressure 161/86 H Blood Pressure [Right Arm] Blood Pressure Mean 111 Blood Pressure Mean [Right Arm] Blood Pressure Position Lying Blood Pressure Position [Right Arm] Pulse Oximetry 94 94 Oxygen Delivery Method Room Air Room Air Room Air Oxygen Flow Rate Sepsis Recent Fever Within 48 Hours No Sepsis New/Unexplained Change in Mental Status No Sepsis Action Taken by Nursing No Action Required 10/10/24 18:58 10/10/24 19:00 10/10/24 22:17 Temperature Temperature Source Pulse Rate 103 H Pulse Rate [Apical] 95 H 91 H Pulse Rhythm Pulse Strength Respiratory Rate 23 19 Blood Pressure Blood Pressure [Right Arm] 127/68 105/45 L Blood Pressure Mean Blood Pressure Mean [Right Arm] 87 65 Blood Pressure Position Blood Pressure Position [Right Arm] Sitting Pulse Oximetry 94 96 Oxygen Delivery Method Nasal Cannula Nasal Cannula Oxygen Flow Rate 2 2 Sepsis Recent Fever Within 48 Hours Sepsis New/Unexplained Change in Mental Status Sepsis Action Taken by Care Home Medications Current Medication List: was personally reviewed by co Laboratory Data Attestation: I reviewed the patient's lab results. 10/10/24 18:53 10/10/24 18:53 Lab Results 10/10/24 10/10/24 10/10/24 Range/Units 18:53 19:47 19:49 WBC 8.30 (4.8-10.8) K/ul RBC 4.79 (4.70-6.10) M/uL Hgb 12.7 L (14.0-18.0) g/dl Hct 39.2 L (42.0-52.0) % MCV 81.8 (80.0-100.0) fL MCH 26.5 (25.0-34.0) pg MCHC 32.4 (32.0-36.0) g/dL RDW Std Deviation 41.8 (36.4-46.3) fL RDW Coeff of Abiodun 14.2 (11.5-14.5) % Plt Count 239 (130-400) K/uL MPV 9.4 (9.4-12.4) fL Immature Gran % (Auto) 1.3 % Neut % (Auto) 58.4 % Lymph % (Auto) 26.4 % [place] % (Auto) 9.6 % Eos % (Auto) 3.6 % Baso % (Auto) 0.7 % Neut # (Auto) 4.84 (1.40-6.50) K/uL Lymph # (Auto) 2.19 (1.20-3.40) K/uL [place] # (Auto) 0.80 H (0.11-0.59) K/uL Eos # (Auto) 0.30 (0.00-0.50) K/uL Baso # (Auto) 0.06 (0.00-0.20) K/uL Immature Gran # (Auto) 0.11 (0.01-0.20) K/uL PT 10.1 (9.0-12.0) Seconds INR 0.9 (0.9-1.1) APTT 27 (21-31) Seconds PTT Ratio 1.0 Sodium 133 L (136-145) mmol/L Potassium 4.5 (3.5-5.1) mmol/L Chloride 95 L (98-107) mmol/L Carbon Dioxide 29 (21-32) mmol/L Anion Gap 9 (3-11) BUN 22 (6-23) mg/dl Creatinine 1.23 (0.6-1.4) mg/dl Est Cr Clr Drug Dosing 94.7 ml/min eGFR 71.52 BUN/Creatinine Ratio 17.9 (10-20) Glucose 430 H* (70-99(Fasting)) mg/dl POC Glucose 403 H* 411 H* (70-99) mg/dl Calcium 9.6 (8.6-10.3) mg/dl Magnesium 1.7 (1.7-2.4) mg/dl Total Bilirubin 0.5 (0.2-1.0) mg/dl AST 17 (13-39) U/L ALT 20 (7-52) U/L Alkaline Phosphatase 78 (34-104) U/L Troponin I High Sens 13.3 (0-20) pg/ml Total Protein 7.2 (6.0-8.3) gm/dl Albumin 3.8 (3.4-5.0) gm/dl Globulin 3.4 (2.5-4.0) gm/dl Albumin/Globulin Ratio 1.1 (0.9-2) Lipase 27 (11-82) U/L 10/10/ Range/Units 21:30 WBC (4.8-10.8) K/ul RBC (4.70-6.10) M/uL Hgb (14.0-18.0) g/dl Hct (42.0-52.0) % MCV (80.0-100.0) fL MCH (25.0-34.0) pg MCHC (32.0-36.0) g/dL RDW Std Deviation (36.4-46.3) fL RDW Coeff of Abiodun (11.5-14.5) % Plt Count (130-400) K/uL MPV (9.4-12.4) fL Immature Gran % (Auto) % Neut % (Auto) % Lymph % (Auto) % [place] % (Auto) % Eos % (Auto) % Baso % (Auto) % Neut # (Auto) (1.40-6.50) K/uL Lymph # (Auto) (1.20-3.40) K/uL [place] # (Auto) (0.11-0.59) K/uL Eos # (Auto) (0.00-0.50) K/uL Baso # (Auto) (0.00-0.20) K/uL Immature Gran # (Auto) (0.01-0.20) K/uL PT (9.0-12.0) Seconds INR (0.9-1.1) APTT (21-31) Seconds PTT Ratio Sodium (136-145) mmol/L Potassium (3.5-5.1) mmol/L Chloride (98-107) mmol/L Carbon Dioxide (21-32) mmol/L Anion Gap (3-11) BUN (6-23) mg/dl Creatinine (0.6-1.4) mg/dl Est Cr Clr Drug Dosing ml/min eGFR BUN/Creatinine Ratio (10-20) Glucose (70-99(Fasting)) mg/dl POC Glucose 264 H (70-99) mg/dl Calcium (8.6-10.3) mg/dl Magnesium (1.7-2.4) mg/dl Total Bilirubin (0.2-1.0) mg/dl AST (13-39) U/L ALT (7-52) U/L Alkaline Phosphatase (34-104) U/L Troponin I High Sens (0-20) pg/ml Total Protein (6.0-8.3) gm/dl Albumin (3.4-5.0) gm/dl Globulin (2.5-4.0) gm/dl Albumin/Globulin Ratio (0.9-2) Lipase (11-82) U/L Administered Medications Discontinued Medications [facility] 1,000 mg in 100 mls @ 400 mls/hr IV NOW STA Stop: 10/10/24 19:24 Last Admin: 10/10/24 19:28 Dose: 400 mls/hr Documented By: CORBIN Insulin Human Regular (Novolin-R Insulin Per Unit Charge) 10 units IV NOW STA Stop: 10/10/24 19:29 Last Admin: 10/10/24 20:05 Dose: 10 units Documented By: CORBIN Co-signed By: ISAAC Morphine Sulfate (Morphine Sulfate 4 Mg/Ml 1 Ml Carp\\Vial) 4 mg IV NOW STA Stop: 10/10/24 18:59 Last Admin: 10/10/24 19:21 Dose: 4 mg Documented By: MED Nitroglycerin (Nitroglycerin 2% Ointment 30gm Tube) 1 inch EXT NOW STA Stop: 10/10/24 19:11 Last Admin: 10/10/24 19:24 Dose: 1 inch Documented By: MED Imaging Data Radiologist's Impression: Chest X-Ray 10/10/24 18:49 Exam(s): XR CXR 1 VIEW EXAM: XR Chest, 1 View CLINICAL HISTORY: Reason for exam: Chest pain, nonspecific. TECHNIQUE: Frontal view of the chest. COMPARISON: X-ray chest: 09/30/2024 FINDINGS: Patient's body habitus/technical factors limits the study. Lungs: Underexpanded lungs. Bilateral bronchial wall and perihilar chronic increased interstitial thickening, slightly increased since prior. No consolidation. Pleural space: And elevated diaphragm right more than the left. No pneumothorax. Heart: Stable mild cardiomegaly. Mediastinum: Normal mediastinal contour. Bones/joints: Degenerative changes of the spine and visualized right shoulder.. No acute fracture.. IMPRESSION: Low lung volumes. Bilateral bronchial wall and perihilar interstitial thickening, slightly increased since prior exam. Elevated right hemidiaphragm. Electronically signed by: Pasquale Delgado MD, DABR 10/10/24 21:07 PM Discharge Plan Visit Data Chief Complaint: Chest Pain Stated Complaint: CHEST PAIN ED Provider: Jaydon Brewer Discharge Problem: Precordial chest pain, Abnormal stress test, Acute hyperglycemia Patient Disposition: Admitted As Inpatient Condition: Fair Discharge Instructions Interventions: ED Discharge Assessment Last Done: 10/10/24 22:37
[2024-10-10] MEDS: MoRPHine SULFATE 4 MG/ML 1 ML CARP\\VIAL IV STA (19:21)
[2024-10-10] MEDS: NITROGLYCERIN 2% OINTMENT 30GM TUBE EXT STA (19:24)
[2024-10-10 19:27] LABS: Albumin Globulin Ratio 1.1 (0.9-2); Albumin Level 3.8 gm/dl (3.4-5.0); BUN Creatinine Ratio 17.9 (10-20); Bilirubin,Total 0.5 mg/dl (0.2-1.0); Calcium 9.6 mg/dl (8.6-10.3); Creatinine Clr Calc Pharmacy 94.7 ml/min; Globulin 3.4 gm/dl (2.5-4.0); Magnesium 1.7 mg/dl (1.7-2.4); Potassium 4.5 mmol/L (3.5-5.1); Total Protein 7.2 gm/dl (6.0-8.3)
[2024-10-10] MEDS: ACETAMINOPHEN 1,000 MG/100 ML VIAL IV STA (19:28)
[2024-10-10 19:34] LABS: INR 0.9 (0.9-1.1); Partial Thromboplastin Time 27 Seconds (21-31); Prothrombin Time 10.1 Seconds (9.0-12.0)
[2024-10-10 19:39] LABS: Troponin I High Sensitivity 13.3 pg/ml (0-20)
[2024-10-10] MEDS: NovoLIN-R INSULIN PER UNIT CHARGE IV STA (20:05)
--- NOTE | 2024-10-10 21:08 | XRay Report ---
Exam(s): XR CXR 1 VIEW EXAM: XR Chest, 1 View CLINICAL HISTORY: Reason for exam: Chest pain, nonspecific. TECHNIQUE: Frontal view of the chest. COMPARISON: X-ray chest: 09/30/2024 FINDINGS: Patient's body habitus/technical factors limits the study. Lungs: Underexpanded lungs. Bilateral bronchial wall and perihilar chronic increased interstitial thickening, slightly increased since prior. No consolidation. Pleural space: And elevated diaphragm right more than the left. No pneumothorax. Heart: Stable mild cardiomegaly. Mediastinum: Normal mediastinal contour. Bones/joints: Degenerative changes of the spine and visualized right shoulder.. No acute fracture.. IMPRESSION: Low lung volumes. Bilateral bronchial wall and perihilar interstitial thickening, slightly increased since prior exam. Elevated right hemidiaphragm. Electronically signed by: Pasquale Delgado MD, RAMOS 10/10/24 21:07 PM
--- NOTE | 2024-10-10 22:48 | History & Physical Report ---
Date of Service October 10, 2024 Assessment & Plan (1) Chest pain: Plan: 48-year-old male with past medical history significant for type 2 diabetes, diabetic polyneuropathy, chronic respiratory failure with hypercapnia, COPD moderate, obstructive sleep apnea, restrictive lung disease, hyperlipidemia, morbid obesity, gastroparesis, irritable bowel syndrome, GERD, history of constipation, degenerative disc disease, history of left BKA, history of DVT and PE status post anticoagulation, history of tobacco use, history of pancreatitis, history of diabetic ulcer of foot comes with chest pain. Patient was recently in the hospital was admitted on 09/30 discharged on 10/02 with chest pain and also left shoulder pain. X-ray of the shoulder showed moderate degenerative changes. Patient was also treated for right lower extremity cellulitis with doxycycline. And patient was scheduled for outpatient stress test. Patient had a nuclear stress test yesterday and today morning. And stress test was positive. Later today patient developed chest pain on the left side and short of breath and came to the ER. His sugars are also high. Patient received 2 nitro sprays, full dose aspirin and IV fentanyl and also placed on nitro paste in the ER. Initially seems symptoms improved but having chest pain again now. Hemodynamics are okay. Currently denies shortness of breath. No cough. No runny nose or sore throat. No headache. No fevers. No nausea. No abdominal pain. Normal bowel and bladder movements. Chest pain Had a positive stress test today EKG and troponin unremarkable, so far three troponin negative Will follow serial enzymes Nitropaste placed but removed later as SBP dropped to 90's. Continue home aspirin and statin and metoprolol Close monitoring telemetry N.p.o. Cardiac consult in a.m. Diabetes Hyperglycemia will remove insulin pump for now Sliding scale Pharmacy consult Close follow-up Hypertension Continue home losartan, metoprolol succinate, diuretics and terazosin will monitor Chronic diastolic CHF On torsemide and spironolactone Monitor for volume overload Obstructive sleep apnea Not using CPAP States has appointment with the sleep in November We will use oxygen History of COPD Seems not on any inhalers Tobacco abuse Counseling Morbid obesity Counseling DVT prophylaxis SCDs for now Disposition Telemetry Full code History of Present Illness Chief Complaint: Chest pain Primary Care Provider: Velasquez Valencia MD 48-year-old male with past medical history significant for type 2 diabetes, diabetic polyneuropathy, chronic respiratory failure with hypercapnia, COPD moderate, obstructive sleep apnea, restrictive lung disease, hyperlipidemia, morbid obesity, gastroparesis, irritable bowel syndrome, GERD, history of constipation, degenerative disc disease, history of left BKA, history of DVT and PE status post anticoagulation, history of tobacco use, history of pancreatitis, history of diabetic ulcer of foot comes with chest pain. Patient was recently in the hospital was admitted on 09/30 discharged on 10/02 with chest pain and also left shoulder pain. X-ray of the shoulder showed moderate degenerative changes. Patient was also treated for right lower extremity cellulitis with doxycycline. And patient was scheduled for outpatient stress test. Patient had a nuclear stress test yesterday and today morning. And stress test was positive. Later today patient developed chest pain on the left side and short of breath and came to the ER. His sugars are also high. Patient received 2 nitro sprays, full dose aspirin and IV fentanyl and also placed on nitro paste in the ER. Initially seems symptoms improved but having chest pain again now. Hemodynamics are okay. Currently denies shortness of breath. No cough. No runny nose or sore throat. No headache. No fevers. No nausea. No abdominal pain. Normal bowel and bladder movements. Past medical history. As mentioned above Past surgical history. Right shoulder arthroscopy. Colonoscopy or EGD. Injection of lumbosacral spine. Left knee arthroscopy. Tonsillectomy. Social history. . Smokes 1.5 packs a day for 33 years. No alcohol currently. No drug use currently as per [facility]. Family history. Father had COPD. Hypertension. Mother has hypertension. Dyslipidemia. Diabetes. Maternal grandmother had diabetes. Paternal grandmother had diabetes. Allergies Allergy/AdvReac Type Severity Reaction Status Date / Time cefaclor [From Ceclor] Allergy Unknown childhood Verified 09/30/24 18:34 allergy ? Cephalosporins Allergy Unknown Unknown Verified 09/30/24 18:34 empagliflozin AdvReac Unknown put me Verified 09/30/24 18:34 [From Jardiance] into ketoacidosis? NSAIDS (Non-Steroidal AdvReac Unknown use with Verified 09/30/24 18:34 Anti-Inflamma caution : hx esophagus damage Home Medications Medication Instructions Recorded Confirmed Type dicyclomine 10 mg capsule 10 mg PO QID PRN Diarrhea 05/01/20 10/10/24 History aspirin 81 mg tablet,delayed 81 mg PO DAILY 30 days #30 tabs 09/17/24 10/10/24 Rx release atorvastatin 20 mg tablet 20 mg PO HS 30 days #30 tabs 09/17/24 10/10/24 Rx famotidine 20 mg tablet 20 mg PO HS 30 days #30 tabs 09/17/24 10/10/24 Rx losartan 50 mg tablet 50 mg PO BID 30 days #30 tabs 09/17/24 10/10/24 Rx omeprazole 40 mg capsule,delayed 40 mg PO DAILYBB 30 days #30 caps 09/17/24 10/10/24 Rx release spironolactone 25 mg tablet 25 mg PO DAILY 30 days #30 tabs 09/17/24 10/10/24 Rx terazosin 1 mg capsule 1 mg PO HS 30 days #30 caps 09/17/24 10/10/24 Rx torsemide 10 mg tablet 20 mg (2 x 10 mg) PO DAILY 30 days 09/17/24 10/10/24 Rx #60 tabs metoprolol succinate 100 mg 100 mg PO BID 09/30/24 10/10/24 History tablet,extended release 24 hr polyethylene glycol 3350 17 gram 17 g PO DAILY 09/30/24 10/10/24 History oral powder packet diclofenac sodium 1 % topical gel 2.25 inch topical QID #100 grams 10/02/24 10/10/24 Rx doxycycline hyclate 100 mg capsule 100 mg PO BID #7 caps 10/02/24 10/10/24 Rx haloperidol 1 mg tablet 1 mg QAM 10/10/24 10/10/24 History Past Med/Surg History Problem List (Updated 10/11/24 @ 00:07 by Background Daemon) Acute hyperglycemia (Acute) Abnormal stress test (Acute) Precordial chest pain (Acute) HTN, goal below 130/80 Diarrhea (Acute) Chest pain (Acute) Generalized pain (Acute) Hyperglycemia due to type 2 diabetes mellitus (Acute) Chest pain (Acute) Chest pain Atypical chest pain Noncompliance with CPAP treatment Hypomagnesemia (Acute) Elevated lactic acid level (Acute) PASHA (acute kidney injury) (Acute) Abdominal pain (Acute) Acute and chronic respiratory failure with hypercapnia Shortness of breath (Acute) 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 Garcia Morbid obesity (Acute) Chronic respiratory failure with hypercapnia Diabetic peripheral neuropathy associated with type 2 diabetes mellitus Loss of protective sensation of skin of foot Epigastric abdominal pain Encounter for pre-operative examination Colon polyp Medical History Chronic diastolic heart failure Volume overload Arthritis Low magnesium level History of RSV infection & flu a few months ago. Tachycardia chronic high heart rate - unknown etiology - a few months ago increased dose of metoprolol. Rhinovirus dx May 23 [facility] & another illness dx - ? name of /antibiotic and inhalers for. feeling better: only symptom : sore throat. COPD (chronic obstructive pulmonary disease) ? dx of Peripheral neuropathy Diabetes mellitus, type 2 Hypertension Tobacco use Restrictive lung disease Elevated liver function tests History of DVT (deep vein thrombosis) "years ago">no known cause Tussive syncope "occurred only one time, no recent issues" Esophagitis Osteoarthritis Hx of pancreatitis resolved GERD (gastroesophageal reflux disease) Cardiac murmur A CHILD Erectile dysfunction MRSA (methicillin resistant Staphylococcus aureus) carrier over 2 yrs ago>"not sure where it was" Intellectual disability Obstructive sleep apnea cpap Obesity IBS (irritable bowel syndrome) History of ventricular tachycardia "nonsustained" Surgical History History of appendectomy 02/10/2023 History of reduction of nasal fracture 09/25/21-Dr. Garcia Status post incision and drainage LLE History of shoulder surgery right-2019 H/O foot surgery LEFT-2018 History of arthroscopy LEFT [id number] History of esophagogastroduodenoscopy (EGD) History of colonoscopy with most recent attempt: failed prep. Told would need a 2 day prep prior to colonoscopy in Sep 2023. History of tooth extraction History of tonsillectomy and adenoidectomy 1979 Family History Brother Family history of diabetes mellitus Environmental allergies Asthma Mother Family history of diabetes mellitus Hypertension Environmental allergies Father Family history of diabetes mellitus Hypertension Heart disease Grandfather (Paternal) Lung cancer smoker Aunt Bleeding disorder Other No family history of adverse response to anesthesia Social History Smoking Status: Current every day smoker Tobacco Type: Cigarettes Age Started Using Tobacco: 14; Cigarettes Per Day: 20; Second Hand Exposure: No; Do You Dip or Chew Tobacco: No; Hx Alcohol Use: No Hx Substance Use: No Preferred Language: Nigerian Communication Ability: Effective Embroiderer Required: No Beliefs That Will Affect Care: None marital status: / marital status details: single at this time Current Living Situation: Significant Other Current Living Situation Comment: lives with mom current occupational status: 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 ENT- oropharynx clear Neck- supple, no JVD. Lungs- clear to auscultation no wheezing or crackles Heart- regular rhythm; no murmur, no gallop. Abdomen- normal bowel sounds, soft, nontender, no distension Extremities- no pretibial edema, no erythema seen. s/p left BKA Neuro- alert, oriented PERRL, EOMI; no facial palsy; no dysarthria; moves extremities Results & Data Results & Data Vital Signs (Past 12 Hours) Vital Signs Temp Pulse Pulse Resp BP BP Pulse Ox 10/10/24 22:17 91 H 19 105/45 L 96 10/10/24 19:00 95 H 23 127/68 94 10/10/24 18:58 103 H 10/10/24 18:49 94 10/10/24 18:49 10/10/24 18:49 36.8 C 100 H 14 161/86 H 94 O2 Del Method O2 Flow Rate 10/10/24 22:17 Nasal Cannula 2 10/10/24 19:00 Nasal Cannula 2 10/10/24 18:58 10/10/24 18:49 Room Air 10/10/24 18:49 Room Air 10/10/24 18:49 Room Air Diagnostic Findings Laboratory Results WBC 8.30 K/ul (4.8-10.8) 10/10/24 18:53 RBC 4.79 M/uL (4.70-6.10) 10/10/24 18:53 Hgb 12.7 g/dl (14.0-18.0) L 10/10/24 18:53 Hct 39.2 % (42.0-52.0) L 10/10/24 18:53 MCV 81.8 fL (80.0-100.0) 10/10/24 18:53 MCH 26.5 pg (25.0-34.0) 10/10/24 18:53 MCHC 32.4 g/dL (32.0-36.0) 10/10/24 18:53 RDW Std Deviation 41.8 fL (36.4-46.3) 10/10/24 18:53 RDW Coeff of Abiodun 14.2 % (11.5-14.5) 10/10/24 18:53 Plt Count 239 K/uL (130-400) 10/10/24 18:53 MPV 9.4 fL (9.4-12.4) 10/10/24 18:53 Immature Gran % (Auto) 1.3 % 10/10/24 18:53 Neut % (Auto) 58.4 % 10/10/24 18:53 Lymph % (Auto) 26.4 % 10/10/24 18:53 Meade % (Auto) 9.6 % 10/10/24 18:53 Eos % (Auto) 3.6 % 10/10/24 18:53 Baso % (Auto) 0.7 % 10/10/24 18:53 Neut # (Auto) 4.84 K/uL (1.40-6.50) 10/10/24 18:53 Lymph # (Auto) 2.19 K/uL (1.20-3.40) 10/10/24 18:53 Meade # (Auto) 0.80 K/uL (0.11-0.59) H 10/10/24 18:53 Eos # (Auto) 0.30 K/uL (0.00-0.50) 10/10/24 18:53 Baso # (Auto) 0.06 K/uL (0.00-0.20) 10/10/24 18:53 Immature Gran # (Auto) 0.11 K/uL (0.01-0.20) 10/10/24 18:53 PT 10.1 Seconds (9.0-12.0) 10/10/24 18:53 INR 0.9 (0.9-1.1) 10/10/24 18:53 APTT 27 Seconds (21-31) 10/10/24 18:53 PTT Ratio 1.0 10/10/24 18:53 Sodium 133 mmol/L (136-145) L 10/10/24 18:53 Potassium 4.5 mmol/L (3.5-5.1) 10/10/24 18:53 Chloride 95 mmol/L (98-107) L 10/10/24 18:53 Carbon Dioxide 29 mmol/L (21-32) 10/10/24 18:53 Anion Gap 9 (3-11) 10/10/24 18:53 BUN 22 mg/dl (6-23) 10/10/24 18:53 Creatinine 1.23 mg/dl (0.6-1.4) 10/10/24 18:53 Est Cr Clr Drug Dosing 94.7 ml/min 10/10/24 18:53 eGFR 71.52 10/10/24 18:53 BUN/Creatinine Ratio 17.9 (10-20) 10/10/24 18:53 Glucose 430 mg/dl (70-99(Fasting)) H* 10/10/24 18:53 POC Glucose 264 mg/dl (70-99) H 10/10/24 21:30 Calcium 9.6 mg/dl (8.6-10.3) 10/10/24 18:53 Magnesium 1.7 mg/dl (1.7-2.4) 10/10/24 18:53 Total Bilirubin 0.5 mg/dl (0.2-1.0) 10/10/24 18:53 AST 17 U/L (13-39) 10/10/24 18:53 ALT 20 U/L (7-52) 10/10/24 18:53 Alkaline Phosphatase 78 U/L (34-104) 10/10/24 18:53 Troponin I High Sens 13.3 pg/ml (0-20) 10/10/24 18:53 Total Protein 7.2 gm/dl (6.0-8.3) 10/10/24 18:53 Albumin 3.8 gm/dl (3.4-5.0) 10/10/24 18:53 Globulin 3.4 gm/dl (2.5-4.0) 10/10/24 18:53 Albumin/Globulin Ratio 1.1 (0.9-2) 10/10/24 18:53 Lipase 27 U/L (11-82) 10/10/24 18:53 Impressions Chest X-Ray 10/10/24 18:49 Exam(s): XR CXR 1 VIEW EXAM: XR Chest, 1 View CLINICAL HISTORY: Reason for exam: Chest pain, nonspecific. TECHNIQUE: Frontal view of the chest. COMPARISON: X-ray chest: 09/30/2024 FINDINGS: Patient's body habitus/technical factors limits the study. Lungs: Underexpanded lungs. Bilateral bronchial wall and perihilar chronic increased interstitial thickening, slightly increased since prior. No consolidation. Pleural space: And elevated diaphragm right more than the left. No pneumothorax. Heart: Stable mild cardiomegaly. Mediastinum: Normal mediastinal contour. Bones/joints: Degenerative changes of the spine and visualized right shoulder.. No acute fracture.. IMPRESSION: Low lung volumes. Bilateral bronchial wall and perihilar interstitial thickening, slightly increased since prior exam. Elevated right hemidiaphragm. Electronically signed by: Pasquale Delgado MD, DABR 10/10/24 21:07 PM ECG Additional Comments: ECG. Normal sinus rhythm with rate of 87. Incomplete right bundle branch block. No acute ST changes seen. No significant change was found. Code Status & VTE Plan VTE Prophylaxis Plan VTE Prophylaxis will be ordered: Yes (1) Chest pain Chest pain type: unspecified Qualified Code(s): R07.9 - Chest pain, unspecified
[2024-10-10] MEDS ORDERED: GLUCAGON FOR INJ 1 MG VIAL SQ PRN (23:00)
[2024-10-10] MEDS ORDERED: CARBOHYDRATES FOR HYPOGLYCEMIA PO PRN (23:00)
[2024-10-10] MEDS ORDERED: GLUCOSE 40% GEL 15 GM TUBE PO PRN (23:00)
[2024-10-10] MEDS ORDERED: PHARMACY GLYCEMIC MGMT CONSULT PRN (23:00)
[2024-10-10] MEDS ORDERED: POLYETHYLENE (MIRALAX) 17 GM PACK PO PRN (23:00)
[2024-10-10] MEDS ORDERED: DEXTROSE 50% 50 ML SYRINGE IV PRN (23:00)
[2024-10-10] MEDS ORDERED: GLUCOSE 10 TAB/TUBE PO PRN (23:00)
[2024-10-10] MEDS ORDERED: ACETAMINOPHEN 325 MG TAB PO PRN (23:00)
[2024-10-10] MEDS: SODIUM CHLORIDE 0.9% 500 ML IV SCH (23:39)
[2024-10-11] MEDS ORDERED: NITROGLYCERIN 2% OINTMENT 30GM TUBE EXT SCH
[2024-10-11] MEDS: INSULIN ASPART PER UNIT CHARGE SC SCH ×2 (00:12→14:28)
[2024-10-11] MEDS: LANTUS PER UNIT CHARGE SC ONE (00:43)
[2024-10-11] MEDS: MoRPHine SULFATE 2 MG/ML CARP IV PRN (03:29)
[2024-10-11 06:09] LABS: Basophils # (auto) 0.06 K/uL (0.00-0.20); Basophils % (auto) 0.9 %; Eosinophils # (auto) 0.43 K/uL (0.00-0.50); Eosinophils % (auto) 6.1 %; Hematocrit (blood only) 38.1 % (42.0-52.0); Immature Granulocytes # (auto) 0.15 K/uL (0.01-0.20); Immature Granulocytes % (auto) 2.1 %; Lymphocytes # (auto) 1.74 K/uL (1.20-3.40); Lymphocytes % (auto) 24.9 %; Mean Corpuscular Hemoglobin 26.2 pg (25.0-34.0); Mean Corpuscular Hgb Conc 31.5 g/dL (32.0-36.0); Mean Corpuscular Volume 83.2 fL (80.0-100.0); Mean Platelet Volume 9.6 fL (9.4-12.4); Monocytes # (auto) 0.76 K/uL (0.11-0.59); Monocytes % (auto) 10.9 %; Neutrophils # (auto) 3.86 K/uL (1.40-6.50); Neutrophils % (auto) 55.1 %; Platelet Count 238 K/uL (130-400); RDW Coefficient of Variation 14.2 % (11.5-14.5); RDW Standard Deviation 42.6 fL (36.4-46.3); Red Blood Count 4.58 M/uL (4.70-6.10)
[2024-10-11] MEDS: PANTOprazole 40 MG TAB PO SCH (06:17)
[2024-10-11 06:24] LABS: Calcium 9.2 mg/dl (8.6-10.3); Creatinine Clr Calc Pharmacy 112.6 ml/min; Magnesium 1.8 mg/dl (1.7-2.4); Potassium 4.1 mmol/L (3.5-5.1)
[2024-10-11 06:30] LABS: Troponin I High Sensitivity 11.5 pg/ml (0-20)
[2024-10-11 07:42] LABS: Estimated Average Glucose 275 mg/dl; Hemoglobin A1C 11.2 % (4.5-5.6)
[2024-10-11] MEDS: ASPIRIN 81 MG ECTAB PO SCH (08:38)
[2024-10-11] MEDS: haloperidoL 1 MG TAB PO SCH (08:38)
[2024-10-11] MEDS: TORSEMIDE 20 MG TAB PO SCH (08:38)
[2024-10-11] MEDS: LOSARTAN POTASSIUM 50 MG TAB PO SCH (08:38)
[2024-10-11] MEDS: METOPROLOL SUCC 50MG EXT REL TAB PO SCH (08:39)
[2024-10-11] MEDS: SPIRONOLACTONE 25 MG TAB PO SCH (08:39)
[2024-10-11] MEDS: DOXYCYCLINE HYCLATE 100 MG CAP PO SCH (08:39)
[2024-10-11] MEDS: POLYETHYLENE (MIRALAX) 17 GM PACK PO SCH (08:45)
--- NOTE | 2024-10-11 09:21 | Electrocardiogram Report ---
Test Reason : Blood Pressure : */* mmHG Vent. Rate : 104 BPM Atrial Rate : 104 BPM P-R Int : 142 ms QRS Dur : 98 ms QT Int : 358 ms P-R-T Axes : 54 36 55 degrees QTcB Int : 470 ms Sinus tachycardia Incomplete right bundle branch block Borderline ECG When compared with ECG of 30-Sep-2024 14:, No significant change was found Confirmed by Nicko Draper ([id number]) on 10/11/2024 9:21:06 AM Referred By: REFERRED SELF Confirmed By: Nicko Draper
--- NOTE | 2024-10-11 11:40 | Cardiology Consultation ---
Date of Consultation October 11, 2024 Assessment & Plan (1) Precordial chest pain: (2) Abnormal stress test: (3) HTN, goal below 130/80: Plan 48-year-old male with multiple cardiovascular risk factors with complex recent history reflecting persistent chest pain. Outpatient stress testing demonstrated evidence of stress-induced anterior wall ischemia. Patient sought ER evaluation after finding results. Currently with chronic shoulder pain but no acute changes to suggest myocardial injury or ischemia by EKG or enzyme. Will require cardiac catheterization/coronary angiography for further definition. Procedure and risk discussed with patient who is aware Will keep n.p.o. after midnight tonight. Hold torsemide and spironolactone Increase beta-ryan therapy metoprolol succinate 125 mg twice per day History of Present Illness Reason for Consultation: Chest pain, abnormal stress test Requesting Physician: Ronnie hospitalist Attending Physician: Diogenes Richard MD History of Present Illness Patient is a 48-year-old male patient is a 48-year-old male with complex history and recent hospitalization. His underlying concerns include Chronic diastolic congestive heart failure, HFpEF Hypertension, hypertensive heart disease, history of hypertensive urgency Dyslipidemia Type 2 diabetes mellitus Gastroparesis Neuropathy Charcot foot Status post below-knee amputation on the left Gastroparesis IBS GERD/esophagitis History of pancreatitis Chronic anemia Obstructive sleep apnea, untreated History of DVT/PE Nonalcoholic fatty liver disease Morbid obesity Patient was recently hospitalized on 09/30/2024 with symptoms of atypical chest pain. Cardiac evaluation did not demonstrate injury or ischemia by EKG echocardiography and cardiac enzymes. Patient with multiple cardiovascular risk factors and was referred for stress nuclear imaging completing study on 10/10/2024. Study positive for stress-induced versus meek-infarct ischemia anterior wall. Patient had been continuing to have chronic and nearly persistent chest pain and shoulder pain. After finding of results of above referred to patient he had further chest pain and sought ER evaluation. No enzyme rise to suggest infarct. EKGs unchanged. Glucose significant elevated on presentation. Symptoms eased with aspirin nitrates fentanyl. Topical nitrates were low resulted in transient hypotension Now with chronic shoulder pain but no acute complaint Allergies Allergy/AdvReac Type Severity Reaction Status Date / Time cefaclor [From Ceclor] Allergy Unknown childhood Verified 09/30/24 18:34 allergy ? Cephalosporins Allergy Unknown Unknown Verified 09/30/24 18:34 empagliflozin AdvReac Unknown put me Verified 09/30/24 18:34 [From Jardiance] into ketoacidosis? NSAIDS (Non-Steroidal AdvReac Unknown use with Verified 09/30/24 18:34 Anti-Inflamma caution : hx esophagus damage Home Medications Medication Instructions Recorded Confirmed Type dicyclomine 10 mg capsule 10 mg PO QID PRN Diarrhea 05/01/20 10/10/24 History aspirin 81 mg tablet,delayed 81 mg PO DAILY 30 days #30 tabs 09/17/24 10/10/24 Rx release atorvastatin 20 mg tablet 20 mg PO HS 30 days #30 tabs 09/17/24 10/10/24 Rx famotidine 20 mg tablet 20 mg PO HS 30 days #30 tabs 09/17/24 10/10/24 Rx losartan 50 mg tablet 50 mg PO BID 30 days #30 tabs 09/17/24 10/10/24 Rx omeprazole 40 mg capsule,delayed 40 mg PO DAILYBB 30 days #30 caps 09/17/24 10/10/24 Rx release spironolactone 25 mg tablet 25 mg PO DAILY 30 days #30 tabs 09/17/24 10/10/24 Rx terazosin 1 mg capsule 1 mg PO HS 30 days #30 caps 09/17/24 10/10/24 Rx torsemide 10 mg tablet 20 mg (2 x 10 mg) PO DAILY 30 days 09/17/24 10/10/24 Rx #60 tabs metoprolol succinate 100 mg 100 mg PO BID 09/30/24 10/10/24 History tablet,extended release 24 hr polyethylene glycol 3350 17 gram 17 g PO DAILY 09/30/24 10/10/24 History oral powder packet diclofenac sodium 1 % topical gel 2.25 inch topical QID #100 grams 10/02/24 10/10/24 Rx doxycycline hyclate 100 mg capsule 100 mg PO BID #7 caps 10/02/24 10/10/24 Rx haloperidol 1 mg tablet 1 mg QAM 10/10/24 10/10/24 History Patient History Medical History Chronic diastolic heart failure Volume overload Arthritis Low magnesium level History of RSV infection & flu a few months ago. Tachycardia chronic high heart rate - unknown etiology - a few months ago increased dose of metoprolol. Rhinovirus dx May 23 [facility] & another illness dx - ? name of /antibiotic and inhalers for. feeling better: only symptom : sore throat. COPD (chronic obstructive pulmonary disease) ? dx of Peripheral neuropathy Diabetes mellitus, type 2 Hypertension Tobacco use Restrictive lung disease Elevated liver function tests History of DVT (deep vein thrombosis) "years ago">no known cause Tussive syncope "occurred only one time, no recent issues" Esophagitis Osteoarthritis Hx of pancreatitis resolved GERD (gastroesophageal reflux disease) Cardiac murmur A CHILD Erectile dysfunction MRSA (methicillin resistant Staphylococcus aureus) carrier over 2 yrs ago>"not sure where it was" Intellectual disability Obstructive sleep apnea cpap Obesity IBS (irritable bowel syndrome) History of ventricular tachycardia "nonsustained" Surgical History History of appendectomy 02/10/2023 History of reduction of nasal fracture 09/25/21-Dr. Garcia Status post incision and drainage LLE History of shoulder surgery right-2019 H/O foot surgery LEFT-2018 History of arthroscopy LEFT [id number] History of esophagogastroduodenoscopy (EGD) History of colonoscopy with most recent attempt: failed prep. Told would need a 2 day prep prior to colonoscopy in Sep 2023. History of tooth extraction History of tonsillectomy and adenoidectomy 1979 Family History Brother Family history of diabetes mellitus Environmental allergies Asthma Mother Family history of diabetes mellitus Hypertension Environmental allergies Father Family history of diabetes mellitus Hypertension Heart disease Grandfather (Paternal) Lung cancer smoker Aunt Bleeding disorder Other No family history of adverse response to anesthesia Social History Smoking Status: Current every day smoker Tobacco Type: Cigarettes Age Started Using Tobacco: 14; Cigarettes Per Day: 20; Second Hand Exposure: No; Do You Dip or Chew Tobacco: No; Hx Alcohol Use: No Hx Substance Use: No Preferred Language: Portuguese Communication Ability: Effective Electric Clock Mechanic Required: No Beliefs That Will Affect Care: None marital status: / marital status details: single at this time Current Living Situation: Significant Other Current Living Situation Comment: lives with mom current occupational status: 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 Other Information That Helps Us Care for You: No other: girlfriend able to assist with dressing changes and care as needed Feels Safe at Home: Yes Safety Concerns: Feels Safe At This Time Diet: diabetic during the past year weight has: remained stable Assistive Devices: Prosthesis and Wheelchair Results & Data Vital Signs (Past 12 Hours) Vital Signs Temp Pulse Resp BP BP Pulse Ox O2 Del Method 10/11/24 08:06 36.6 C 96 H 20 171/83 H 94 Nasal Cannula 10/11/24 03:00 36.6 C 90 19 137/81 91 Nasal Cannula 10/11/24 00:19 99/64 L 10/11/24 00:00 92/52 L 10/11/24 00:00 106/66 10/10/24 23:56 91/39 L 10/10/24 23:39 107/50 L O2 Flow Rate 10/11/24 08:06 2 10/11/24 03:00 2 10/11/24 00:19 10/11/24 00:00 10/11/24 00:00 10/10/24 23:56 10/10/24 23:39
--- NOTE | 2024-10-11 11:57 | Electrocardiogram Report ---
Test Reason : Blood Pressure : */* mmHG Vent. Rate : 87 BPM Atrial Rate : 87 BPM P-R Int : 146 ms QRS Dur : 98 ms QT Int : 394 ms P-R-T Axes : 38 16 44 degrees QTcB Int : 474 ms Normal sinus rhythm Incomplete right bundle branch block Borderline ECG When compared with ECG of 10-Oct-2024 18:50, No significant change was found Confirmed by Nicko Draper ([id number]) on 10/11/2024 11:57:26 AM Referred By: REFERRED SELF Confirmed By: Nicko Draper
--- NOTE | 2024-10-11 12:13 | Electrocardiogram Report ---
Test Reason : Blood Pressure : */* mmHG Vent. Rate : 91 BPM Atrial Rate : 91 BPM P-R Int : 158 ms QRS Dur : 104 ms QT Int : 386 ms P-R-T Axes : 43 19 63 degrees QTcB Int : 474 ms Normal sinus rhythm Incomplete right bundle branch block Borderline ECG When compared with ECG of 10-Oct-2024 22:12, No significant change was found Confirmed by Nicko Draper ([id number]) on 10/11/2024 12:12:32 PM Referred By: REFERRED SELF Confirmed By: Nicko Draper
--- NOTE | 2024-10-11 13:43 | Hospitalist Progress Note ---
Date of Service October 11, 2024 Assessment & Plan (1) Chest pain: Plan: 48-year-old male with past medical history significant for type 2 diabetes, diabetic polyneuropathy, chronic respiratory failure with hypercapnia, COPD moderate, obstructive sleep apnea, restrictive lung disease, hyperlipidemia, morbid obesity, gastroparesis, irritable bowel syndrome, GERD, history of constipation, degenerative disc disease, history of left BKA, history of DVT and PE status post anticoagulation, history of tobacco use, history of pancreatitis, history of diabetic ulcer of foot comes with chest pain. Patient was recently in the hospital was admitted on 09/30 discharged on 10/02 with chest pain and also left shoulder pain. X-ray of the shoulder showed moderate degenerative changes. Patient was also treated for right lower extremity cellulitis with doxycycline. And patient was scheduled for outpatient stress test. Patient had a nuclear stress test yesterday and today morning. And stress test was positive. Later today patient developed chest pain on the left side and short of breath and came to the ER. His sugars are also high. Patient received 2 nitro sprays, full dose aspirin and IV fentanyl and also placed on nitro paste in the ER. Initially seems symptoms improved but having chest pain again now. Hemodynamics are okay. Currently denies shortness of breath. No cough. No runny nose or sore throat. No headache. No fevers. No nausea. No abdominal pain. Normal bowel and bladder movements. Chest pain Outpatient abnormal stress EKG unchanged from prior Troponins negative Continue aspirin, statin, metoprolol, losartan Metoprolol dose increased to 125 mg twice a day Appreciate cardiology input N.p.o. after midnight for cardiac cath tomorrow Update lipid panel DM II Uncontrolled Was on insulin pump HbA1c 11.2 Continue insulin per protocol Appreciate glycemic pharmacist help Monitor blood glucose levels Hypertension Continue losartan, metoprolol succinate, terazosin Hold home diuretics Monitor blood pressure Chronic diastolic CHF Was on on torsemide and spironolactone Monitor for volume overload Currently diuretics on hold Resume home diuretics as able Obstructive sleep apnea Not using CPAP States has appointment with the sleep in November Continue supplemental oxygen at bedtime COPD No signs of exacerbation Monitor Tobacco abuse Counseling Morbid obesity BMI 43 Counseling DVT prophylaxis Heparin SQ CODE STATUS Full code Admission and Anticipated Discharge Date Admission Date: October 10, 2024 Subjective Patient is seen and examined at bedside States having left shoulder pain but otherwise no complaints Denies any chest pain, dyspnea, nausea, vomiting, abdominal pain Review of Systems Review of Systems: All systems reviewed & are unremarkable except as noted in Subjective Physical Exam Physical Exam: Physical Exam: Vitals signs as noted above General Appearance:Morbidly Obese, no apparent distress Head: normocephalic, Atraumatic Eyes: normal inspection, EOMI Neck: supple, Trachea midline Respiratory/Chest: Normal breath sounds, CTA, No accessory muscle use Cardiovascular: S1, S2, No murmur Abdomen/GI:Soft, Non tender, Bowel sounds present Extremities/Musculoskeletal:normal inspection, no edema, Left AKA Neurologic/Psych:AAOX3, grossly no focal neurological deficits Skin: normal color, warm Results & Data Results & Data Vital Signs (Past 12 Hours) Vital Signs Temp Pulse Pulse Resp BP BP Pulse Ox 10/11/24 12:06 36.6 C 88 22 136/76 94 10/11/24 08:30 10/11/24 08:06 36.6 C 96 H 20 171/83 H 94 10/11/24 05:51 95 H 10/11/24 03:00 36.6 C 90 19 137/81 91 O2 Del Method O2 Flow Rate 10/11/24 12:06 Nasal Cannula 2 10/11/24 08:30 Nasal Cannula 2 10/11/24 08:06 Nasal Cannula 2 10/11/24 05:51 10/11/24 03:00 Nasal Cannula 2 Laboratory Results Short CBC 10/10/24 10/11/24 Range/Units 18:53 05:23 WBC 8.30 7.00 (4.8-10.8) K/ul Hgb 12.7 L 12.0 L (14.0-18.0) g/dl Hct 39.2 L 38.1 L (42.0-52.0) % Plt Count 239 238 (130-400) K/uL BMP 10/10/24 10/11/24 18:53 05:23 Sodium 133 L 137 Potassium 4.5 4.1 Chloride 95 L 100 Carbon Dioxide 29 29 BUN 22 29 H Creatinine 1.23 1.26 Glucose 430 H* 254 H Calcium 9.6 9.2 Liver Function 10/10/24 Range/Units 18:53 Total Bilirubin 0.5 (0.2-1.0) mg/dl AST 17 (13-39) U/L ALT 20 (7-52) U/L Alkaline Phosphatase 78 (34-104) U/L Albumin 3.8 (3.4-5.0) gm/dl (1) Chest pain Chest pain type: unspecified Qualified Code(s): R07.9 - Chest pain, unspecified
--- NOTE | 2024-10-11 14:25 | Pharmacy Report ---
Pharmacy Glycemic Short Note 2 - Date of Service October 11, 2024 - Glycemic Short BSG Results (Last 24 hours): 10/10/24 10/10/24 10/10/24 18:53 19:47 19:49 Glucose 430 H* POC Glucose 403 H* 411 H* 10/10/24 10/10/24 10/11/24 21:30 22:54 00:08 Glucose POC Glucose 264 H 246 H 240 H 10/11/24 10/11/24 10/11/24 04:14 05:23 08:10 Glucose 254 H POC Glucose 265 H 206 H 10/11/24 12:05 Glucose POC Glucose 196 H OUTPATIENT ANTIDIABETIC REGIMEN: * Omnipod insulin pump-newly started 09/18 * Basal rate 2.8 units/hr --> 67 units/day * CF 13, CR 3.3 * HbA1c 8.6% (05/09/24), 11.2% (10/11/24) ASSESSMENT: * Bry is a 48 YOM admitted for an abnormal stress test/chest pain with a history of type 2 diabetes mellitus. Pharmacy has been consulted to assist with glycemic management while inpatient. Bry is known to the glycemic service and has been difficult to control. The decision was made upon admission to transition from his insulin pump to SQ insulin because of persistent hyperglycemia. * Basal insulin initiated as previous dosing, slightly greater than a weight based stress of 3 will allow for an increase of 10% if BSGs significantly elevated. * NovoLog initiated at a weight based stress of 2.5, tightened correction factor as BSGs remained elevated while patient was NPO. PLAN FOR INPATIENT GLYCEMIC CONTROL: * Hold outpatient insulin pump * Basal insulin * Lantus 50 units SQ QAM * Lantus 50/60 units SQ HS based on BSG (see eMAR for additional details) * Bolus insulin * NovoLog per scale ACHS or Q6hrs while NPO * Goal Range: Low 110 mg/dL - High 140 mg/dL * Correction Factor: 10 mg/dL/unit * Nutritional / Prandial insulin per carb ratio of 1 unit per 4 grams CHO consumed
[2024-10-11] MEDS: HEPARIN SOD 5,000 UNIT/0.5 ML VIAL SQ SCH (14:29)
[2024-10-11] MEDS: LANTUS PER UNIT CHARGE SC SCH (22:01)
[2024-10-11] MEDS: FAMOTIDINE 20 MG TAB PO SCH (22:03)
[2024-10-11] MEDS: TERAZOSIN HCL 1 MG CAP PO SCH (22:03)
[2024-10-11] MEDS: ATORVASTATIN 20 MG TAB PO SCH (22:03)
[2024-10-11] MEDS: METOPROLOL SUCC 25MG EXT REL TAB PO SCH (22:05)
[2024-10-12] MEDS: INSULIN ASPART PER UNIT CHARGE SC ONE (02:24)
[2024-10-12 05:29] LABS: Hematocrit (blood only) 38.5 % (42.0-52.0); Hemoglobin 12.2 g/dl (14.0-18.0); Mean Corpuscular Hemoglobin 26.5 pg (25.0-34.0); Mean Corpuscular Hgb Conc 31.7 g/dL (32.0-36.0); Mean Corpuscular Volume 83.7 fL (80.0-100.0); Mean Platelet Volume 9.6 fL (9.4-12.4); Platelet Count 245 K/uL (130-400); RDW Coefficient of Variation 14.2 % (11.5-14.5); RDW Standard Deviation 43.2 fL (36.4-46.3); White Blood Count 8.02 K/ul (4.8-10.8)
[2024-10-12 05:44] LABS: BUN Creatinine Ratio 25.8 (10-20); Calcium 8.8 mg/dl (8.6-10.3); Chol HDL Ratio 4.5 (0-5); Creatinine Clr Calc Pharmacy 114.4 ml/min; Potassium 4.1 mmol/L (3.5-5.1)
--- NOTE | 2024-10-12 08:44 | Pre Anesthesia Assessment ---
Date of Service October 12, 2024 Pre Sedation Assessment Vital Signs Temp Pulse Pulse Resp BP Pulse Ox O2 Del Method 10/12/24 07:45 36.3 C L 84 18 135/69 95 Nasal Cannula 10/12/24 03:00 36.5 C 78 20 131/71 97 Nasal Cannula 10/11/24 23:08 36.8 C 91 H 18 106/53 L 92 Nasal Cannula 10/11/24 22:30 94 H 10/11/24 20:21 36.8 C 88 20 123/77 93 Nasal Cannula 10/11/24 20:00 Nasal Cannula 10/11/24 15:59 36.5 C 90 20 135/69 94 Nasal Cannula 10/11/24 12:06 36.6 C 88 22 136/76 94 Nasal Cannula O2 Flow Rate 10/12/24 07:45 2 10/12/24 03:00 2 10/11/24 23:08 2 10/11/24 22:30 10/11/24 20:21 2 10/11/24 20:00 2 10/11/24 15:59 10/11/24 12:06 2 Cardiovascular RRR, no murmur, no edema Respiratory normal respiratory effort, lungs clear to auscultation Additional Comments: Wearing oxygen Pre-Sedation Airway Assessment Smoking Status: Current every day smoker Mallampati 4 ASA 3 Notes The planned sedation has been discussed with the patient. Informed Consent was obtained. I have identified the patient, determined the appropriateness of sedation and have assessed the patient immediately prior to the procedure. All medicine(s) and interventions are by my order.
[2024-10-12] MEDS: LANTUS PER UNIT CHARGE SC SCH (08:46)
--- NOTE | 2024-10-12 08:52 | Cardiology Progress Note ---
Date of Service October 12, 2024 Assessment & Plan (1) Precordial chest pain: (2) Abnormal stress test: (3) HTN, goal below 130/80: (4) Dyslipidemia, goal LDL below 70: Plan 48-year-old male with multiple cardiovascular risk factors, persistent atypical chest pain, abnormal nuclear stress testing (anterior ischemia). EKG without acute change. High sensitivity troponin negative x 5 this admission, minimally elevated in August 2024 Torsemide and spironolactone currently on hold. Patient NPO for diagnostic cardiac catheterization today Continue the increased dose of beta-ryan therapy (metoprolol succinate 125 mg BID), aspirin, statin, ARB, risk factor and lifestyle modification. Further recommendations pending cardiac catheterization findings. Admission and Anticipated Discharge Date Admission Date: October 10, 2024 Supervising Physician Co-Signing Physician Notes Patient seen and examined. Assessment and plan as outlined by advanced provider above. Hemodynamically stable on adjustment medications as above. Patient underwent coronary angiography which demonstrated moderate coronary atherosclerosis in the left coronary anatomy without obstruction. Recommendations continued medical therapy. Current complaints noncardiac chest pain May be discharged later today following observation Subjective Patient seen and examined. Chart, medications, and telemetry reviewed. Significant other at bedside. Persistent chest pain for weeks, ongoing without exacerbation Presented to [facility] after being informed of abnormal outpatient Lexiscan nuclear stress testing which demonstrated anterior ischemia. Review of Systems Review of Systems: Complete Review of Systems is as stated above, negative, or noncontributory. Physical Exam Physical Exam: General: NAD. HENT: Normocephalic. Neck: No overt JVD. Heart: RRR, 74 bpm. Lungs: Clear to auscultation. Abdomen: +BS. Soft. Nontender. No masses or organomegaly. Extremities: BKA on the left. Minimal distal edema on the right. No cyanosis. No clubbing Limited neurological examination is without focal deficits. Results & Data Vital Signs (Past 12 Hours) Vital Signs Temp Pulse Pulse Resp BP Pulse Ox O2 Del Method 10/12/24 07:45 36.3 C L 84 18 135/69 95 Nasal Cannula 10/12/24 03:00 36.5 C 78 20 131/71 97 Nasal Cannula 10/11/24 23:08 36.8 C 91 H 18 106/53 L 92 Nasal Cannula 10/11/24 22:30 94 H O2 Flow Rate 10/12/24 07:45 2 10/12/24 03:00 2 10/11/24 23:08 2 10/11/24 22:30 Laboratory Results Cardiac Enzymes 10/11/24 10/11/24 Range/Units 10:57 17:16 Troponin I High Sens 11.1 10.2 (0-20) pg/ml Lipids 10/12/24 Range/Units 05:11 Triglycerides 387 H (0-150) mg/dl Cholesterol 166 (0-200) mg/dl HDL Cholesterol 37 mg/dl Cholesterol/HDL Ratio 4.5 (0-5) CBC 10/12/24 Range/Units 05:09 WBC 8.02 (4.8-10.8) K/ul RBC 4.60 L (4.70-6.10) M/uL Hgb 12.2 L (14.0-18.0) g/dl Hct 38.5 L (42.0-52.0) % Plt Count 245 (130-400) K/uL Comprehensive Metabolic Panel 10/12/24 Range/Units 05:11 Sodium 137 (136-145) mmol/L Potassium 4.1 (3.5-5.1) mmol/L Chloride 98 (98-107) mmol/L Carbon Dioxide 31 (21-32) mmol/L BUN 32 H (6-23) mg/dl Creatinine 1.24 (0.6-1.4) mg/dl Glucose 246 H (70-99(Fasting)) mg/dl Calcium 8.8 (8.6-10.3) mg/dl Intake and Output 10/11/24 10/12/24 10/12/24 22:59 06:59 14:59 Intake Total 120 / 600 Output Total 1550 / 4650 Balance -1550 / -4050 120 / -4050 Intake: Oral 120 / 600 Output: Urine 1550 / 4650 Other: Weight 153.6 kg Weight Measurement Method Built in [facility] Diagnostic Findings EKG without acute change High sensitivity troponin negative x 5 Telemetry benign, sinus in the 70's and 80's.
[2024-10-12] MEDS: HEPARIN (PORCINE) 1000 UNIT/ML 10 ML (CATH LAB USE ONLY) ONE (09:28)
[2024-10-12] MEDS: OPTIRAY 350 ONE (09:29)
[2024-10-12] MEDS: MIDAZOLAM HCL 1 MG/ML 2ML VIAL ONE (09:29)
[2024-10-12] MEDS: niCARdipine 2,000 MCG/20 ML SYR ONE (09:29)
[2024-10-12] MEDS: fentaNYL citrate PF 100 MCG/2 ML VIAL ONE (09:29)
--- NOTE | 2024-10-12 09:29 | Post Anesthesia Assessment ---
Date of Service October 12, 2024 Post Sedation Assessment Vital Signs Temp Pulse Pulse Pulse Resp BP BP 10/12/24 10:20 36.6 C 86 18 128/76 10/12/24 10:11 36.6 C 87 18 10/12/24 10:04 36.5 C 85 151/78 H 10/12/24 09:47 85 14 90/56 L 10/12/24 09:39 87 14 112/54 L 10/12/24 08:56 85 18 145/79 H 10/12/24 07:45 36.3 C L 84 18 135/69 10/12/24 03:00 36.5 C 78 20 131/71 10/11/24 23:08 36.8 C 91 H 18 106/53 L 10/11/24 22:30 94 H 10/11/24 20:21 36.8 C 88 20 123/77 10/11/24 20:00 10/11/24 15:59 36.5 C 90 20 135/69 10/11/24 12:06 36.6 C 88 22 136/76 BP Pulse Ox O2 Del Method O2 Flow Rate 10/12/24 10:20 95 Room Air 10/12/24 10:11 139/80 96 Room Air 10/12/24 10:04 91 Room Air 10/12/24 09:47 90 Room Air 10/12/24 09:39 90 Room Air 10/12/24 08:56 95 Room Air 10/12/24 07:45 95 Nasal Cannula 2 10/12/24 03:00 97 Nasal Cannula 2 10/11/24 23:08 92 Nasal Cannula 2 10/11/24 22:30 10/11/24 20:21 93 Nasal Cannula 2 10/11/24 20:00 Nasal Cannula 2 10/11/24 15:59 94 Nasal Cannula 10/11/24 12:06 94 Nasal Cannula 2 Recovery Score Activity: Moves 4 extremities Respiration: Deep Breath/Cough Circulation: +/-20% PreAnes Value Consciousness: Fully Awake Oxygen Saturation: > 92% On Room Air Discharge Sedation Level of Care: Fast Track Phase II Post Sedation Plan On clinical assessment, the patient appears to have tolerated the sedation without complications. Patient is recovering as anticipated. Patient will continue to be monitored by nursing and may be discharged when sedation discharge criteria are met per below protocol. Upon Completions of procedure up to 15 minutes continue every 5 minute vital signs and the P.A.R. score; then discharge to a Phase I or Fast Track to Phase II per the following guidelines: * Discharge Patient to appropriate Phase II area if PAR is 8 or greater or return to pre- procedure baseline. The post - procedure orders will be as directed. * If PAR score is less than 8 or not return to pre-procedure baseline then patient will follow Phase I monitoring till PAR is reached for Phase II. The Phase I may be done in procedure room or may call to secure a Phase I area. * If naloxone or flumazenil are used for reversal, hold in Phase I for continued monitoring from when last reversal dose was given for a minimum of 60 minutes or longer pending the nurse and/or physician discretion of patient condition before discharge to Phase II. Please call the Sedation Physician to re-evaluate and complete post-note for discharge to Phase II area. Do NOT discharge from procedure sedation or Phase 1 until post- sedation evaluation note is complete by procedure /sedation MD Sedation Discharge Instructions to be given to the patient at discharge to home. [facility] [place] Procedure Codes (Charges) Indication for Procedure Indication for procedure: Unstable angina Sedation/Anesthesia Procedure 1: Sedation/Anesthesia: 39084 Mod Sedation by the same physician;Init15 Min Child Age 5 & Up (Initial 15-minute, start time 0916, end time 09)
[2024-10-12] MEDS: NITROGLYCERIN/D5W 100MCG/ML 20ML SYR ONE (09:30)
[2024-10-12 10:13] VITALS: RESP 18
[2024-10-12 10:53] VITALS: TEMP 98.1
[2024-10-12 12:15] VITALS: O2SAT 95
--- NOTE | 2024-10-12 12:29 | XRay Report ---
XR shoulder LT min 2V routine CLINICAL HISTORY: shoulder pain TECHNIQUE: 3 views of the left shoulder were obtained. Comparison: Comparison is made to shoulder radiograph 10/01/2024 FINDINGS: There is no evidence of an acute fracture. Degenerative changes are seen in the glenohumeral joint. T he overlying soft tissues are unremarkable. The visualized portions of the lungs are clear. IMPRESSION: Degenerative changes without evidence of acute abnormality. ACT 112: Negative or not required by law. Electronically signed by: Jovanni Burris M.D. 10/12/2024 12:27 PM
--- NOTE | 2024-10-12 12:41 | Electrocardiogram Report ---
Test Reason : Blood Pressure : */* mmHG Vent. Rate : 80 BPM Atrial Rate : 80 BPM P-R Int : 160 ms QRS Dur : 104 ms QT Int : 406 ms P-R-T Axes : 0 21 43 degrees QTcB Int : 468 ms Normal sinus rhythm Incomplete right bundle branch block Borderline ECG When compared with ECG of 11-Oct-2024 06:32, No significant change was found Confirmed by Nba Wallace ([id number]) on 10/12/2024 12:41:46 PM Referred By: REFERRED SELF Confirmed By: Nba Wallace
--- NOTE | 2024-10-12 12:44 | Hospitalist Progress Note ---
Date of Service October 12, 2024 Assessment & Plan (1) Chest pain: Plan: Patient is a 48yr male with past medical history significant for type 2 diabetes, diabetic polyneuropathy, chronic respiratory failure with hypercapnia, COPD moderate, obstructive sleep apnea, restrictive lung disease, hyperlipidemia, morbid obesity, gastroparesis, irritable bowel syndrome, GERD, history of constipation, degenerative disc disease, history of left BKA, history of DVT and PE status post anticoagulation, history of tobacco use, history of pancreatitis, history of diabetic ulcer of foot comes with chest pain. Patient was recently in the hospital was admitted on 09/30 discharged on 10/02 with chest pain and also left shoulder pain. X-ray of the shoulder showed moderate degenerative changes. Patient was also treated for right lower extremity cellulitis with doxycycline. And patient was scheduled for outpatient stress test. Patient had a nuclear stress test yesterday and today morning. And stress test was positive. Later today patient developed chest pain on the left side and short of breath and came to the ER. His sugars are also high. Patient received 2 nitro sprays, full dose aspirin and IV fentanyl and also placed on nitro paste in the ER. Initially seems symptoms improved but having chest pain again now. Hemodynamics are okay. Currently denies shortness of breath. No cough. No runny nose or sore throat. No headache. No fevers. No nausea. No abdominal pain. Normal bowel and bladder movements. Chest pain Outpatient abnormal stress EKG unchanged from prior Troponins negative --S/P Cardiac Cath:coronary angiography demonstrated moderate coronary atherosclerosis in the left coronary anatomy without obstruction. Continue aspirin, statin, metoprolol, losartan Metoprolol dose increased to 125 mg twice a day Appreciate cardiology input: Okay to discharge home on increased dose of metoprolol Advised to monitor blood pressure regularly at home and discuss with PCP for further adjustment of medications as needed Plan to discharge home today DM II Uncontrolled Was on insulin pump HbA1c 11.2 Continue insulin per protocol Appreciate glycemic pharmacist help Monitor blood glucose levels Hypertension Continue losartan, metoprolol succinate, terazosin Resume home diuretics on discharge Monitor blood pressure Chronic diastolic CHF Was on on torsemide and spironolactone Monitor for volume overload Resume home diuretics Obstructive sleep apnea Not using CPAP States has appointment with the sleep in November Continue supplemental oxygen at bedtime COPD No signs of exacerbation Monitor Tobacco abuse Counseling Morbid obesity BMI 43 Counseling DVT prophylaxis Heparin SQ CODE STATUS Full code Disposition Home Admission and Anticipated Discharge Date Admission Date: October 10, 2024 Subjective Patient is seen and examined at bedside Patient had cardiac catheterization alert today Still has some chest discomfort, nonradiating Discussed with patient's family at bedside Denies any dyspnea, nausea, vomiting, abdominal pain Discussed with cardiology today Plan to be discharged home today Review of Systems Review of Systems: All systems reviewed & are unremarkable except as noted in Subjective Physical Exam Physical Exam: Physical Exam: Vitals signs as noted above General Appearance:Morbidly Obese, no apparent distress Head: normocephalic, Atraumatic Eyes: normal inspection, EOMI Neck: supple, Trachea midline Respiratory/Chest: Normal breath sounds, CTA, No accessory muscle use Cardiovascular: S1, S2, No murmur Abdomen/GI:Soft, Non tender, Bowel sounds present Extremities/Musculoskeletal:normal inspection, no edema, Left AKA Neurologic/Psych:AAOX3, grossly no focal neurological deficits Skin: normal color, warm Results & Data Results & Data Vital Signs (Past 12 Hours) Vital Signs Temp Pulse Pulse Pulse Resp BP BP 10/12/24 12:13 36.7 C 88 112/67 10/12/24 11:05 36.7 C 87 18 132/81 10/12/24 10:50 36.7 C 86 18 131/78 10/12/24 10:33 36.6 C 89 18 153/67 H 10/12/24 10:20 36.6 C 86 18 128/76 10/12/24 10:11 36.6 C 87 18 10/12/24 10:04 36.5 C 85 151/78 H 10/12/24 09:47 85 14 90/56 L 10/12/24 09:39 87 14 112/54 L 10/12/24 08:56 85 18 145/79 H 10/12/24 07:45 36.3 C L 84 18 135/69 10/12/24 03:00 36.5 C 78 20 131/71 BP Pulse Ox O2 Del Method O2 Flow Rate 10/12/24 12:13 95 Room Air 10/12/24 11:05 97 Room Air 10/12/24 10:50 95 Room Air, Nasal Cannula 10/12/24 10:33 95 Room Air 10/12/24 10:20 95 Room Air 10/12/24 10:11 139/80 96 Room Air 10/12/24 10:04 91 Room Air 10/12/24 09:47 90 Room Air 10/12/24 09:39 90 Room Air 10/12/24 08:56 95 Room Air 10/12/24 07:45 95 Nasal Cannula 2 10/12/24 03:00 97 Nasal Cannula 2 Laboratory Results Short CBC 10/12/24 Range/Units 05:09 WBC 8.02 (4.8-10.8) K/ul Hgb 12.2 L (14.0-18.0) g/dl Hct 38.5 L (42.0-52.0) % Plt Count 245 (130-400) K/uL BMP 10/12/24 05:11 Sodium 137 Potassium 4.1 Chloride 98 Carbon Dioxide 31 BUN 32 H Creatinine 1.24 Glucose 246 H Calcium 8.8 (1) Chest pain Chest pain type: unspecified Qualified Code(s): R07.9 - Chest pain, unspecified
--- NOTE | 2024-10-12 12:51 | Discharge Summary ---
Date of Service October 12, 2024 Admission HPI Per Admitting Provider 48-year-old male with past medical history significant for type 2 diabetes, diabetic polyneuropathy, chronic respiratory failure with hypercapnia, COPD moderate, obstructive sleep apnea, restrictive lung disease, hyperlipidemia, morbid obesity, gastroparesis, irritable bowel syndrome, GERD, history of constipation, degenerative disc disease, history of left BKA, history of DVT and PE status post anticoagulation, history of tobacco use, history of pancreatitis, history of diabetic ulcer of foot comes with chest pain. Patient was recently in the hospital was admitted on 09/30 discharged on 10/02 with chest pain and also left shoulder pain. X-ray of the shoulder showed moderate degenerative changes. Patient was also treated for right lower extremity cellulitis with doxycycline. And patient was scheduled for outpatient stress test. Patient had a nuclear stress test yesterday and today morning. And stress test was positive. Later today patient developed chest pain on the left side and short of breath and came to the ER. His sugars are also high. Patient received 2 nitro sprays, full dose aspirin and IV fentanyl and also placed on nitro paste in the ER. Initially seems symptoms improved but having chest pain again now. Hemodynamics are okay. Currently denies shortness of breath. No cough. No runny nose or sore throat. No headache. No fevers. No nausea. No abdominal pain. Normal bowel and bladder movements. Past medical history. As mentioned above Past surgical history. Right shoulder arthroscopy. Colonoscopy or EGD. Injection of lumbosacral spine. Left knee arthroscopy. Tonsillectomy. Social history. . Smokes 1.5 packs a day for 33 years. No alcohol currently. No drug use currently as per [facility]. Family history. Father had COPD. Hypertension. Mother has hypertension. Dyslipidemia. Diabetes. Maternal grandmother had diabetes. Paternal grandmother had diabetes. Admission Exam Per Admitting Provider General- Not in acute distress Head- atraumatic Eyes- PERRL. ENT- oropharynx clear Neck- supple, no JVD. Lungs- clear to auscultation no wheezing or crackles Heart- regular rhythm; no murmur, no gallop. Abdomen- normal bowel sounds, soft, nontender, no distension Extremities- no pretibial edema, no erythema seen. s/p left BKA Neuro- alert, oriented PERRL, EOMI; no facial palsy; no dysarthria; moves extremities Principal Diagnosis Chest pain Coronary artery disease Discharge Data Allergies Allergy/AdvReac Type Severity Reaction Status Date / Time cefaclor [From Ceclor] Allergy Unknown childhood Verified 09/30/24 18:34 allergy ? Cephalosporins Allergy Unknown Unknown Verified 09/30/24 18:34 empagliflozin AdvReac Unknown put me Verified 09/30/24 18:34 [From Jardiance] into ketoacidosis? NSAIDS (Non-Steroidal AdvReac Unknown use with Verified 09/30/24 18:34 Anti-Inflamma caution : hx esophagus damage Consultations 10/10/24 19:44 ED Decision to Admit Stat 10/11/24 08:00 Consult Cardiology Routine Procedures Performed Operation Date: 10/12/24 08:00 Actual Procedures p Cineradiography w/Routine Exam - Eugenio Rodarte MD, PhD p Cath, Coronaries ONLY (no LV) - Eugenio Rodarte MD, PhD Ordered Studies 10/12/24 06:48 CL Cath Imgs for PACS use only Routine Laboratory Results WBC 8.02 K/ul (4.8-10.8) 10/12/24 05:09 RBC 4.60 M/uL (4.70-6.10) L 10/12/24 05:09 Hgb 12.2 g/dl (14.0-18.0) L 10/12/24 05:09 Hct 38.5 % (42.0-52.0) L 10/12/24 05:09 MCV 83.7 fL (80.0-100.0) 10/12/24 05:09 MCH 26.5 pg (25.0-34.0) 10/12/24 05:09 MCHC 31.7 g/dL (32.0-36.0) L 10/12/24 05:09 RDW Std Deviation 43.2 fL (36.4-46.3) 10/12/24 05:09 RDW Coeff of Abiodun 14.2 % (11.5-14.5) 10/12/24 05:09 Plt Count 245 K/uL (130-400) 10/12/24 05:09 MPV 9.6 fL (9.4-12.4) 10/12/24 05:09 Immature Gran % (Auto) 2.1 % 10/11/24 05:23 Neut % (Auto) 55.1 % 10/11/24 05:23 Lymph % (Auto) 24.9 % 10/11/24 05:23 [place] % (Auto) 10.9 % 10/11/24 05:23 Eos % (Auto) 6.1 % 10/11/24 05:23 Baso % (Auto) 0.9 % 10/11/24 05:23 Neut # (Auto) 3.86 K/uL (1.40-6.50) 10/11/24 05:23 Lymph # (Auto) 1.74 K/uL (1.20-3.40) 10/11/24 05:23 [place] # (Auto) 0.76 K/uL (0.11-0.59) H 10/11/24 05:23 Eos # (Auto) 0.43 K/uL (0.00-0.50) 10/11/24 05:23 Baso # (Auto) 0.06 K/uL (0.00-0.20) 10/11/24 05:23 Immature Gran # (Auto) 0.15 K/uL (0.01-0.20) 10/11/24 05:23 PT 10.1 Seconds (9.0-12.0) 10/10/24 18:53 INR 0.9 (0.9-1.1) 10/10/24 18:53 APTT 27 Seconds (21-31) 10/10/24 18:53 PTT Ratio 1.0 10/10/24 18:53 Sodium 137 mmol/L (136-145) 10/12/24 05:11 Potassium 4.1 mmol/L (3.5-5.1) 10/12/24 05:11 Chloride 98 mmol/L (98-107) 10/12/24 05:11 Carbon Dioxide 31 mmol/L (21-32) 10/12/24 05:11 Anion Gap 8 (3-11) 10/12/24 05:11 BUN 32 mg/dl (6-23) H 10/12/24 05:11 Creatinine 1.24 mg/dl (0.6-1.4) 10/12/24 05:11 Est Cr Clr Drug Dosing 114.4 ml/min 10/12/24 05:11 eGFR 70.83 10/12/24 05:11 BUN/Creatinine Ratio 25.8 (10-20) H 10/12/24 05:11 Glucose 246 mg/dl (70-99(Fasting)) H 10/12/24 05:11 POC Glucose 245 mg/dl (70-99) H 10/12/24 11:41 Estimat Average Glucose 275 mg/dl 10/11/24 05:23 Hemoglobin A1c 11.2 % (4.5-5.6) H 10/11/24 05:23 Calcium 8.8 mg/dl (8.6-10.3) 10/12/24 05:11 Magnesium 1.8 mg/dl (1.7-2.4) 10/11/24 05:23 Total Bilirubin 0.5 mg/dl (0.2-1.0) 10/10/24 18:53 AST 17 U/L (13-39) 10/10/24 18:53 ALT 20 U/L (7-52) 10/10/24 18:53 Alkaline Phosphatase 78 U/L (34-104) 10/10/24 18:53 Troponin I High Sens 10.2 pg/ml (0-20) 10/11/24 17:16 Total Protein 7.2 gm/dl (6.0-8.3) 10/10/24 18:53 Albumin 3.8 gm/dl (3.4-5.0) 10/10/24 18:53 Globulin 3.4 gm/dl (2.5-4.0) 10/10/24 18:53 Albumin/Globulin Ratio 1.1 (0.9-2) 10/10/24 18:53 Triglycerides 387 mg/dl (0-150) H 10/12/24 05:11 Cholesterol 166 mg/dl (0-200) 10/12/24 05:11 LDL Cholesterol, Calc 52 mg/dl 10/12/24 05:11 VLDL Cholesterol, Calc 77 mg/dl (0-30) H 10/12/24 05:11 HDL Cholesterol 37 mg/dl 10/12/24 05:11 Cholesterol/HDL Ratio 4.5 (0-5) 10/12/24 05:11 Lipase 27 U/L (11-82) 10/10/24 18:53 Impressions Chest X-Ray 10/10/24 18:49 Exam(s): XR CXR 1 VIEW EXAM: XR Chest, 1 View CLINICAL HISTORY: Reason for exam: Chest pain, nonspecific. TECHNIQUE: Frontal view of the chest. COMPARISON: X-ray chest: 09/30/2024 FINDINGS: Patient's body habitus/technical factors limits the study. Lungs: Underexpanded lungs. Bilateral bronchial wall and perihilar chronic increased interstitial thickening, slightly increased since prior. No consolidation. Pleural space: And elevated diaphragm right more than the left. No pneumothorax. Heart: Stable mild cardiomegaly. Mediastinum: Normal mediastinal contour. Bones/joints: Degenerative changes of the spine and visualized right shoulder.. No acute fracture.. IMPRESSION: Low lung volumes. Bilateral bronchial wall and perihilar interstitial thickening, slightly increased since prior exam. Elevated right hemidiaphragm. Electronically signed by: Pasquale Delgado MD, DABR 10/10/24 21:07 PM Shoulder X-Ray 10/12/24 10:41 XR shoulder LT min 2V routine CLINICAL HISTORY: shoulder pain TECHNIQUE: 3 views of the left shoulder were obtained. Comparison: Comparison is made to shoulder radiograph 10/01/2024 FINDINGS: There is no evidence of an acute fracture. Degenerative changes are seen in the glenohumeral joint. The overlying soft tissues are unremarkable. The visualized portions of the lungs are clear. IMPRESSION: Degenerative changes without evidence of acute abnormality. ACT 112: Negative or not required by law. Electronically signed by: Jovanni Burris M.D. 10/12/2024 12:27 PM Hospital Course (1) Chest pain: Patient is a 48yr male with past medical history significant for type 2 diabetes, diabetic polyneuropathy, chronic respiratory failure with hypercapnia, COPD moderate, obstructive sleep apnea, restrictive lung disease, hyperlipidemia, morbid obesity, gastroparesis, irritable bowel syndrome, GERD, history of constipation, degenerative disc disease, history of left BKA, history of DVT and PE status post anticoagulation, history of tobacco use, history of pancreatitis, history of diabetic ulcer of foot comes with chest pain. Patient was recently in the hospital was admitted on 09/30 discharged on 10/02 with chest pain and also left shoulder pain. X-ray of the shoulder showed moderate degenerative changes. Patient was also treated for right lower extremity cellulitis with doxycycline. And patient was scheduled for outpatient stress test. Patient had a nuclear stress test yesterday and today morning. And str ess test was positive. Later today patient developed chest pain on the left side and short of breath and came to the ER. His sugars are also high. Patient received 2 nitro sprays, full dose aspirin and IV fentanyl and also placed on nitro paste in the ER. Initially seems symptoms improved but having chest pain again now. Hemodynamics are okay. Currently denies shortness of breath. No cough. No runny nose or sore throat. No headache. No fevers. No nausea. No abdominal pain. Normal bowel and bladder movements. Chest pain Outpatient abnormal stress EKG unchanged from prior Troponins negative --S/P Cardiac Cath:coronary angiography demonstrated moderate coronary atherosclerosis in the left coronary anatomy without obstruction. Continue aspirin, statin, metoprolol, losartan Metoprolol dose increased to 125 mg twice a day Appreciate cardiology input: Okay to discharge home on increased dose of metoprolol Advised to monitor blood pressure regularly at home and discuss with PCP for further adjustment of medications as needed Plan to discharge home today DM II Uncontrolled Was on insulin pump HbA1c 11.2 Continue insulin per protocol Appreciate glycemic pharmacist help Monitor blood glucose levels Hypertension Continue losartan, metoprolol succinate, terazosin Resume home diuretics on discharge Monitor blood pressure Chronic diastolic CHF Was on on torsemide and spironolactone Monitor for volume overload Resume home diuretics Obstructive sleep apnea Not using CPAP States has appointment with the sleep in November Continue supplemental oxygen at bedtime COPD No signs of exacerbation Monitor Tobacco abuse Counseling Morbid obesity BMI 43 Counseling DVT prophylaxis Heparin SQ CODE STATUS Full code Disposition Home Total Time Total Time Spent Total Time Spent (In Minutes): 49 minutes Discharge Plan Discharge Items Patient Disposition: Home - Self-Care Reason For Visit: CHEST PAIN Discharge Diagnosis: Chest Pain Condition on Discharge: Fair Activity: Per Instructions section Non-emergency contact: Primary Care Provider and Correspondence Section Supervisor Call non-emergency contact if: you have any medication questions, your symptoms worsen and your pain is concerning for you Follow-up/Referrals: Velasquez Valencia MD [Primary Care Provider] - (Date & Time 10/17/2024 10:20 AM Provider: Red Ornelas MD Department: [facility] ) Diet: Carb Consistent or DM2 and Heart Healthy Addtl Attending Provider Instructions: Follow-up with your primary care physician on 10/17/2024 10:20 AM Follow-up with your audit partner Dr. Gonzales as needed Consider following up with your grief counsellor for better control of your diabetes mellitus. -- Your metoprolol succinate dose is increased to 125 mg twice a day as recommended by her audit partner. -Monitor your blood pressure regularly as advised. Discuss with your primary care physician for further adjustment of medications as needed.- Seek immediate medical attention if your symptoms reoccur or worsen Please take all medications as instructed on discharge list below. Please call if you have any questions or problems. You can reach a [facility] hospitalist on duty at [facility] 24 hours a day by calling [phone] [facility] Interior Design Coordinator Provider Instructions: ACTIVITY RECOMMENDATIONS: Excess manipulation of the wrist should be avoided for the next 24-48 hours. * No lifting over 2 pounds (approximately a 1/2 gallon of milk) with the utilized arm for 24 hours. * No strenuous activity such as bowling or tennis for 3 days. * Keep the site of the procedure covered with a bandage for 24 hours. *You may shower the day after the procedure. Do not take a tub bath or submerge the puncture site in water for the next 3 days. *Do not operate any motorized equipment for 3 days. SPECIAL CARE INSTRUCTIONS: The site may be slightly bruised and sore following your procedure. Should any of the following occur, contact the Dr. who performed your procedure. 1. Redness/inflammation, swelling, chills, or fever, or colored drainage at procedure site within 3-7 days after your procedure. 2. Coldness, discoloration, ongoing numbness, severe pain, or swelling. Expect mild tingling of hand and tenderness at the puncture site for up to three days. If this persists beyond three days, or other symptoms develop, notify the Dr. who performed your procedure. BLEEDING: If the procedure site on your wrist begins to bleed, do not panic 1. Place 1 or 2 fingers firmly just slightly above the insertion site to stop the bleeding. You may be able to feel your pulse as you hold pressure. 2. Lift your finger after 5 minutes to see if the bleeding has stopped. 3. Once the bleeding has stopped, gently wipe the wrist area clean with a bandage. * If the bleeding from your wrist does not stop after 10 minutes, or if there is a large amount of bleeding or spurting, call 911 (do not drive yourself to the hospital). SKIN IRRITATION: * You may experience some redness and/or swelling in the area where radiation was administered. If any skin irritation occurs, please contact your family physician. FOLLOW UP VISIT: Keep any scheduled doctor appointments. Pending Studies at Discharge: No Stand-Alone Forms: My [facility] [employer], Smoking Cessation Medications and DC Order Prescriptions: New metoprolol succinate 25 mg tablet extended release 24 hr 25 mg PO BID Qty: 60 0RF Continued dicyclomine 10 mg capsule 10 mg PO QID PRN (Reason: Diarrhea) haloperidol 1 mg tablet 1 mg QAM losartan 50 mg tablet 50 mg PO BID 30 Days Qty: 30 1RF atorvastatin 20 mg tablet 20 mg PO HS 30 Days Qty: 30 1RF torsemide 10 mg tablet 20 mg PO DAILY 30 Days Qty: 60 1RF terazosin 1 mg capsule 1 mg PO HS 30 Days Qty: 30 1RF omeprazole 40 mg capsule,delayed release(DR/EC) 40 mg PO DAILYBB 30 Days Qty: 30 1RF aspirin 81 mg tablet,delayed release (DR/EC) 81 mg PO DAILY 30 Days Qty: 30 1RF spironolactone 25 mg tablet 25 mg PO DAILY 30 Days Qty: 30 1RF famotidine 20 mg tablet 20 mg PO HS 30 Days Qty: 30 1RF metoprolol succinate 100 mg tablet extended release 24 hr 100 mg PO BID polyethylene glycol 3350 17 gram Powder In Packet 17 g PO DAILY doxycycline hyclate 100 mg Capsule 100 mg PO BID Qty: 7 0RF diclofenac sodium 1 % gel 2.25 inch topical QID Qty: 100 0RF Rx Instructions: apply to left shoulder Discharge Orders: Discharge Order (Routine); Ordered 10/12/24 Ordered By: Diogenes Richard Admission Data Admit Date/Time: 10/10/24 22:21 Attending Provider: Diogenes Richard Admit Provider: Hernan Busby Primary Care Provider: Velsaquez Valencia Other Providers: Hernan Busby; Avery Gonzales
[2024-10-12 13:31] VITALS: BP 139/80; PULSE 85
[2024-10-13] MEDS ORDERED: INSULIN ASPART PER UNIT CHARGE SC SCH
--- NOTE | 2024-10-13 14:51 | Cardiac Catheterization ---
[facility] Data: Head Control Clerk Cardiac Status Clinical evaluation leading to the procedure CAD Presenation: Non STEMI Anginal Classification: CCS IV Cardiogenic Shock within 24 Hours: No Cardiac Arrest within 24 Hours: No Imaging Studies Past 6 Months: Yes Coronary Anatomy Dominant: Right Left Main (% Stenosis): Normal LAD (% Stenosis): Proximal (50% calcified) and Mid (50% calcified) D1 (% Stenosis): Ostial (100% GUIDANCE SERVICES COORDINATOR) Circumflex (% Stenosis): Mid (30 to 40%) OM1 (% Stenosis): Normal OM2 (% Stenosis): Normal OM3 (% Stenosis): Proximal (30 to 40%) L PL1 (% Stenosis): Proximal (20 to 30%) RCA (% Stenosis): Normal (Scattered up to 20% plaques) R PDA (% Stenosis): Normal R PL1 (% Stenosis): Normal Ramus (% Stenosis): Normal (Less than 30%) Diagnostic Physicians Name: Eugenio Rodarte MD, PhD Closure Device Percutaneous Entry Location: Radial Closure Device: Radial Band Recommendations: Medical Therapy and/or Counseling Cardiac Cath Procedure Full Procedure Date October 12, 2024 Pre-Procedure Diagnosis Pre-Procedure Diagnosis: Angina and Positive Stress Test AUC Score AUC Score: 07 Post-Procedure Diagnosis Post-Procedure Diagnosis: Mild CAD Procedure(s) Performed Procedure(s) Performed: Coronary Angiography Supervisor Grower Eugenio Rodarte MD, PhD Estimated Blood Loss Estimated Blood Loss: 5cc Medication(s) Medication(s): Fentanyl, Heparin, Lidocaine 1%, Nicardipine, Nitroglycerin and Versed Summary of Findings Brief description: Patient was brought to the cardiac catheterization suite where he was shaved and prepped in a sterile fashion. Sedated using IV Versed and fentanyl. Soft tissues of the right wrist were anesthetized using 2 mL of 1% Xylocaine. The right radial artery was accessed with a modified Seldinger technique and a 6 [place] radial artery glide sheath was placed. Patient was provided anticoagulation with IV heparin and antispasmodics including nicardipine and nitroglycerin. All catheters were advanced and exchanged over a 0.035 J-tip wire. Left coronary angiography in orthogonal views with a 5 [place] Nelson 4 diagnostic catheter. Right coronary angiography in orthogonal views with a 5 [place] JR4 diagnostic catheter. Diagnostic catheters were removed. Radial artery sheath was removed. Hemostasis was obtained using the TR band. Patient remained hemodynamically stable and asymptomatic. He was returned to the recovery area. This ended the case. Coronary angiography findings: [id number] vessel trifurcating into LAD, circumflex, and ramus. It is short in length and has no disease. [id number]-gahul-[id number] and transapical. Proximal and mid vessel have diffuse calcified up to 50% stenosis. Distally the vessel has no significant disease. There is a late filling diagonal which appears to be 100% occluded at the ostium. Small caliber but long. OBj-yndbt-[id number] and nondominant. Travels in the AV groove giving 2 small obtuse marginal branches followed by a large branching OM 3. This vessel has proximal to 30 to 40% stenosis. Circumflex then provides a posterolateral branch which has 20 to 30% stenosis. The mid AV groove circumflex has 30 to 40% stenosis. Ramus-medium caliber with mild less than 30% stenosis. [id number]-[id number]-vrlnofm and dominant. Bifurcates distally into the PDA and posterolateral branches. There is scattered mild plaques of less than 20% in the RCA and its branches. Summary: 1. Apparent GUIDANCE SERVICES COORDINATOR of the diagonal branch. Otherwise there is mild nonocclusive coronary disease in the remainder of the coronaries. 2. Recommend guideline directed medical therapy for secondary prevention of coronary disease to include low-dose aspirin, high intensity statin therapy, beta-ryan, and BLAKE inhibitor/ARB. Hemodynamics Rest Ao:: 102/73 mmHg Final Ao: 98/62 mmHg LV: Not performed Recommendations Recommendations: Medical Therapy and/or Counseling Radiation Exposure (mGy) 874 mGy, fluoroscopy time 1.7 minutes Contrast (mls) 65 cc Anesthesia 1 mg Versed, 25 mcg fentanyl IV. Start time 915, end time 926 Procedural Complication(s) None Disposition Head Control Clerk Holding/Recovery I attest to the content of the Intraoperative Record and any orders documented therein. Any exceptions are noted below. [facility] Card Cath Procedure Codes Cardiac Catheterization Procedure 1: Cardiovascular Cath Procedures: 54341 Coronaries Moderate Sedation Procedure 1: Sedation/Anesthesia: 23236 Mod Sedation by the same physician;Init15 Min Child Age 5 & Up (Initial 15 minutes, start time 915, end time 926) PG Care Time/CCT Total # of Minutes Spent Total Time Spent with Patient: Total time spent is greater than 50% in coordination of care (as documented) at patient's floor/unit and/or counseling patient:
== END 2024-10-12 14:00 | disposition home or self-care (01) | DRG 287 ==
LOC: ED 18:44 → 4W 22:21
PROC: CLB.CCO (2024-10-12 08:00)

== ENCOUNTER 2024-12-21 18:52 | Inpatient (IN) ==
--- NOTE | 2024-12-21 19:22 | Emergency Department Note ---
Impression & Plan Chest pain, HTN (hypertension) ED Provider Note NAME: ROBERT BARAJAS Jr AGE: 49 SEX: M : 1975 ARRIVES VIA: Walk-In INFORMANT: Patient ED PROVIDER(S): Jae Sanchez DO CHIEF COMPLAINT: Chest pain HPI: Patient is a 49-year-old male with a past medical history of CAD, NSTEMI, hypertension, hyperlipidemia, abnormal stress test, PASHA, COPD, nicotine dependence that presents to the ER for midsternal chest tightness associated with exertion. This has been coming going for the past 2 days. Generally goes away with rest. Denies any belly pain, nausea, vomiting, or diarrhea. No dysuria, urgency, or frequency. No other exacerbating or remitting factors. ADDITIONAL HISTORY OBTAINED: Per HPI Chronic Medical/Social Conditions Affecting Care: Per HPI PAST MEDICAL HISTORY:See Below PAST SURGICAL HISTORY:See Below FAMILY HISTORY:See Below SOCIAL HISTORY:See Below HOME MEDICATIONS:See Below ALLERGIES:See Below VITALS:See Below PHYSICAL EXAMINATION: GENERAL: Sitting up in bed, alert, well appearing, well nourished, no distress, non-toxic EYE EXAM: normal conjunctiva. OROPHARYNX: mucous membranes are moist LUNGS: Clear to auscultation. Normal chest wall mechanics HEART: no murmurs, S1 normal and S2 normal ABDOMEN: abdomen soft, non-tender, normo-active bowel sounds, no masses, no rebound or guarding. BACK: Back is symmetrical on inspection and there is no deformity, no midline tenderness, no CVA tenderness. SKIN: no rashes and no bruising UPPER EXTREMITIES: upper extremities are grossly normal. LOWER EXTREMITIES: No pitting edema. NEURO EXAM: Normal sensorium, cranial nerves II-XII grossly intact, normal speech, no gross weakness of arms, no gross weakness of legs. MEDICAL DECISION MAKING: Patient is a 49-year-old male who presents ER for the below stated complaint. External records were reviewed from catheterization in 09/[address] Rodarte which showed 100% occlusion of an ostial branch. IV was established and blood work was obtained. Labs show no significant leukocytosis or anemia. Hip BMP along with LFTs and bilirubin was unremarkable. Troponin was negative. Lipase was normal. Viral panel was negative. Patient was significantly hypertensive with systolic pressures of 220. Was given IV labetalol. Was given aspirin. He was pain-free while in the ER. EKG was nondiagnostic. With a history of CAD patient was discussed with the hospitalist for further evaluation management treatment. Consults/Care Managements Discussions: Per MDM Triage Nursing notes reviewed. Limited review of prior medical records performed Vital Signs: reviewed and remarkable for HTN Differential diagnosis: Cardiac ischemia, aortic dissection, pulmonary embolism, pneumothorax, pneumonia, pericarditis, myocarditis, esophageal rupture, GERD, cholecystitis, pancreatitis, musculoskeletal, as well as other pathologies. ER treatment provided: See below Diagnostics interpreted by me include EKG and cardiac monitoring as listed below: -Cardiac Monitoring: An order was placed for continuous cardiac monitoring. The monitor shows a rate of 92 with sinus rhythm. -ECG: Sinus rhythm rate of 96 Normal axis No PVCs QTc 469 -Laboratory studies:Interpreted by me as stated above in MDM and shown below. Imaging studies: Xrays: As interpreted by me: Portable AP upright 1 view of the chest shows no focal infiltrate CTs show: none Procedures:none Critical Care: None Past Med/Surg History Problem List (Updated 12/22/24 @ 00:06 by Jae Sanchez DO) HTN (hypertension) (Acute) Chest pain (Acute) Abnormal nuclear cardiac imaging test Dyslipidemia, goal LDL below 70 Acute hyperglycemia (Acute) Abnormal stress test (Acute) Precordial chest pain (Acute) HTN, goal below 130/80 Diarrhea (Acute) Chest pain (Acute) Generalized pain (Acute) Hyperglycemia due to type 2 diabetes mellitus (Acute) Chest pain (Acute) Chest pain Atypical chest pain Noncompliance with CPAP treatment Hypomagnesemia (Acute) Elevated lactic acid level (Acute) PASHA (acute kidney injury) (Acute) Abdominal pain (Acute) Acute and chronic respiratory failure with hypercapnia Shortness of breath (Acute) 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 Garcia Morbid obesity (Acute) Chronic respiratory failure with hypercapnia Diabetic peripheral neuropathy associated with type 2 diabetes mellitus Loss of protective sensation of skin of foot Epigastric abdominal pain Encounter for pre-operative examination Colon polyp Medical History Chronic diastolic heart failure Volume overload Arthritis Low magnesium level History of RSV infection & flu a few months ago. Tachycardia chronic high heart rate - unknown etiology - a few months ago increased dose of metoprolol. Rhinovirus dx May 23 [facility] & another illness dx - ? name of /antibiotic and inhalers for. feeling better: only symptom : sore throat. COPD (chronic obstructive pulmonary disease) ? dx of Peripheral neuropathy Diabetes mellitus, type 2 Hypertension Tobacco use Restrictive lung disease Elevated liver function tests History of DVT (deep vein thrombosis) "years ago">no known cause Tussive syncope "occurred only one time, no recent issues" Esophagitis Osteoarthritis Hx of pancreatitis resolved GERD (gastroesophageal reflux disease) Cardiac murmur A CHILD Erectile dysfunction MRSA (methicillin resistant Staphylococcus aureus) carrier over 2 yrs ago>"not sure where it was" Intellectual disability Obstructive sleep apnea cpap Obesity IBS (irritable bowel syndrome) History of ventricular tachycardia "nonsustained" Surgical History History of appendectomy 02/10/2023 History of reduction of nasal fracture 09/25/21-Dr. Garcia Status post incision and drainage LLE History of shoulder surgery right-2019 H/O foot surgery LEFT-2018 History of arthroscopy LEFT [id number] History of esophagogastroduodenoscopy (EGD) History of colonoscopy with most recent attempt: failed prep. Told would need a 2 day prep prior to colonoscopy in Sep 2023. History of tooth extraction History of tonsillectomy and adenoidectomy 1979 Family History Brother Family history of diabetes mellitus Environmental allergies Asthma Mother Family history of diabetes mellitus Hypertension Environmental allergies Father Family history of diabetes mellitus Hypertension Heart disease Grandfather (Paternal) Lung cancer smoker Aunt Bleeding disorder Other No family history of adverse response to anesthesia Social History Smoking Status: Current every day smoker Tobacco Type: Cigarettes Age Started Using Tobacco: 14; Cigarettes Per Day: 20; Second Hand Exposure: No; Do You Dip or Chew Tobacco: No; Hx Alcohol Use: No Hx Substance Use: No Preferred Language: Faroese Communication Ability: Effective Sharepoint Trainer Required: No Beliefs That Will Affect Care: None marital status: / marital status details: single at this time Current Living Situation: Significant Other Current Living Situation Comment: lives with mom current occupational status: employed 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 Cephalosporins Allergy Unknown Unknown Verified 11/14/24 12:17 empagliflozin AdvReac Unknown put me Verified 11/14/24 12:17 [From [employer]] into ketoacidosis? NSAIDS (Non-Steroidal AdvReac Unknown use with Verified 11/14/24 12:17 Anti-Inflamma caution : hx esophagus damage Home Meds Home Medications Medication Instructions Recorded Confirmed dicyclomine 10 mg capsule 10 mg PO QID PRN Diarrhea 05/01/20 12/21/24 metoprolol succinate 100 mg 100 mg PO BID 09/30/24 12/21/24 tablet,extended release 24 hr polyethylene glycol 3350 17 gram 17 g PO DAILY PRN Constipation 09/30/24 12/21/24 oral powder packet haloperidol 1 mg tablet 1 mg PO QAM PRN gastroparesis 10/10/24 12/21/24 symptoms aspirin 81 mg tablet,delayed 81 mg PO QAM 12/21/24 12/21/24 release metformin 500 mg tablet,extended 500 mg PO QAM 12/21/24 12/21/24 release 24 hr spironolactone 25 mg tablet 50 mg PO DAILY 12/21/24 12/21/24 torsemide 20 mg tablet 20 mg PO QPM 12/21/24 12/21/24 Previous Rx's Medication Instructions Recorded atorvastatin 20 mg tablet 20 mg PO HS 30 days #30 tabs 09/17/24 famotidine 20 mg tablet 20 mg PO HS 30 days #30 tabs 09/17/24 losartan 50 mg tablet 50 mg PO BID 30 days #30 tabs 09/17/24 omeprazole 40 mg capsule,delayed 40 mg PO DAILYBB 30 days #30 caps 09/17/24 release terazosin 1 mg capsule 1 mg PO HS 30 days #30 caps 09/17/24 metoprolol succinate 25 mg 25 mg PO BID #60 tabs 10/12/24 tablet,extended release 24 hr Results & Data (ED) Vital Signs Vital Signs - 24 hr 12/21/24 18:55 12/21/24 19:13 12/21/24 19:16 Temperature 36.7 C Temperature Source Temporal Artery Scan Pulse Rate 102 H 97 H Pulse Rate [Apical] Respiratory Rate 18 Respiratory Effort / Characteristics Non-Labored Spontaneous Respiratory Depth Normal Respiratory Pattern Regular Blood Pressure 172/74 H Blood Pressure [Right Arm] Blood Pressure Mean 106 Blood Pressure Mean [Right Arm] Blood Pressure Position Sitting Blood Pressure Position [Right Arm] Pulse Oximetry 93 Oxygen Delivery Method Room Air Room Air Sepsis Recent Fever Within 48 Hours No Sepsis New/Unexplained Change in Mental Status N/A Sepsis Action Taken by Nursing No Action Required 12/21/24 19:25 12/21/24 20:26 12/21/24 20:48 Temperature Temperature Source Pulse Rate 97 H Pulse Rate [Apical] 95 H Respiratory Rate 20 88 H Respiratory Effort / Characteristics Respiratory Depth Respiratory Pattern Blood Pressure 163/65 H Blood Pressure [Right Arm] 188/80 H 142/76 H Blood Pressure Mean Blood Pressure Mean [Right Arm] 116 98 Blood Pressure Position Blood Pressure Position [Right Arm] Semi-fowlers Pulse Oximetry 91 Oxygen Delivery Method Room Air Sepsis Recent Fever Within 48 Hours Sepsis New/Unexplained Change in Mental Status Sepsis Action Taken by Nursing 12/21/24 20:48 12/21/24 21:00 Temperature Temperature Source Pulse Rate Pulse Rate [Apical] 90 Respiratory Rate 20 Respiratory Effort / Characteristics Respiratory Depth Respiratory Pattern Blood Pressure 142/76 H Blood Pressure [Right Arm] 165/87 H Blood Pressure Mean Blood Pressure Mean [Right Arm] 113 Blood Pressure Position Blood Pressure Position [Right Arm] Pulse Oximetry 94 Oxygen Delivery Method Sepsis Recent Fever Within 48 Hours Sepsis New/Unexplained Change in Mental Status Sepsis Action Taken by Nursing Laboratory Data 12/21/24 19:15 12/21/24 19:15 Lab Results 12/21/24 12/21/24 Range/Units 19:15 21:07 WBC 7.21 (4.8-10.8) K/ul RBC 4.83 (4.70-6.10) M/uL Hgb 12.8 L (14.0-18.0) g/dl Hct 39.7 L (42.0-52.0) % MCV 82.2 (80.0-100.0) fL MCH 26.5 (25.0-34.0) pg MCHC 32.2 (32.0-36.0) g/dL RDW Std Deviation 43.4 (36.4-46.3) fL RDW Coeff of Abiodun 14.6 H (11.5-14.5) % Plt Count 244 (130-400) K/uL MPV 9.3 L (9.4-12.4) fL Immature Gran % (Auto) 1.9 % Neut % (Auto) 59.4 % Lymph % (Auto) 25.1 % [place] % (Auto) 8.6 % Eos % (Auto) 4.3 % Baso % (Auto) 0.7 % Neut # (Auto) 4.28 (1.40-6.50) K/uL Lymph # (Auto) 1.81 (1.20-3.40) K/uL [place] # (Auto) 0.62 H (0.11-0.59) K/uL Eos # (Auto) 0.31 (0.00-0.50) K/uL Baso # (Auto) 0.05 (0.00-0.20) K/uL Immature Gran # (Auto) 0.14 (0.01-0.20) K/uL APTT 28 (21-31) Seconds PTT Ratio 1.0 Sodium 139 (136-145) mmol/L Potassium 3.6 (3.5-5.1) mmol/L Chloride 100 (98-107) mmol/L Carbon Dioxide 33 H (21-32) mmol/L Anion Gap 6 (3-11) BUN 36 H (6-23) mg/dl Creatinine 1.12 (0.6-1.4) mg/dl Est Cr Clr Drug Dosing Not Reportable eGFR 79.54 BUN/Creatinine Ratio 32.1 H (10-20) Glucose 160 H (70-99(Fasting)) mg/dl Calcium 10.3 (8.6-10.3) mg/dl Magnesium 1.9 (1.7-2.4) mg/dl Total Bilirubin 0.4 (0.2-1.0) mg/dl AST 16 (13-39) U/L ALT 18 (7-52) U/L Alkaline Phosphatase 79 (34-104) U/L Troponin I High Sens 7.0 (0-20) pg/ml Total Protein 8.0 (6.0-8.3) gm/dl Albumin 4.1 (3.4-5.0) gm/dl Globulin 3.9 (2.5-4.0) gm/dl Albumin/Globulin Ratio 1.1 (0.9-2) Lipase 80 (11-82) U/L Adenovirus (PCR) Not Detected (NotDetected) B. pertussis DNA (PCR) Not Detected (NotDetected) B.parapertussis DNA PCR Not Detected (NotDetected) C. pneumoniae DNA (PCR) Not Detected (NotDetected) Coronavirus OC43 (PCR) Not Detected (NotDetected) Coronavirus HKU1 (PCR) Not Detected (NotDetected) Coronavirus 229E (PCR) Not Detected (NotDetected) SARS-CoV-2 (PCR) Not Detected (NotDetected) Coronavirus NL63 (PCR) Not Detected (NotDetected) Human Metapneumovir PCR Not Detected (NotDetected) Influenza Type A (PCR) Not Detected (NotDetected) Influenza Type B (PCR) Not Detected (NotDetected) M. pneumoniae (PCR) Not Detected (NotDetected) Parainfluenza 1 (PCR) Not Detected (NotDetected) Parainfluenza 2 (PCR) Not Detected (NotDetected) Parainfluenza 3 (PCR) Not Detected (NotDetected) Parainfluenza 4 (PCR) Not Detected (NotDetected) RSV (PCR) Not Detected (NotDetected) Entero/Rhino (PCR) Not Detected (NotDetected) Administered Medications Terazosin HCl (Terazosin Hcl 1 Mg Cap) 1 mg PO HS SOPHIA Stop: 01/20/25 22:09 Last Admin: 12/21/24 23:08 Dose: 1 mg Documented By: LCD Discontinued Medications Aspirin (Aspirin Chew 324 Mg) 324 mg PO NOW STA Stop: 12/21/24 19:19 Last Admin: 12/21/24 19:30 Dose: 324 mg Documented By: BESSIE Ioversol (Optiray 320 125ml) 125 ml IV ONCE ONE Stop: 12/21/24 23:05 Last Admin: 12/21/24 23:05 Dose: 118 ml Documented By: SHANE Labetalol HCl (Labetalol Hcl Iv 5 Mg/Ml 20ml) 10 mg IV NOW STA Stop: 12/21/24 20:18 Last Admin: 12/21/24 20:26 Dose: 10 mg Documented By: BESSIE Losartan Potassium (Losartan Potassium 50 Mg Tab) 50 mg PO NOW STA Stop: 12/21/24 21:49 Last Admin: 12/21/24 22:13 Dose: 50 mg Documented By: BESSIE Nitroglycerin (Nitroglycerin Sl 0.4 Mg/Tab Tab) 0.4 mg SL NOW STA Stop: 12/21/24 21:11 Last Admin: 12/21/24 21:32 Dose: 0.4 mg Documented By: BESSIE Oxycodone HCl (Oxycodone Hcl Ir 5 Mg Tab (Immediate Release)) 5 mg PO NOW STA Stop: 12/21/24 22:00 Last Admin: 12/21/24 22:13 Dose: 5 mg Documented By: BESSIE Imaging Data Radiologist's Impression: Chest X-Ray 12/21/24 19:18 Exam(s): XR CXR 1 VIEW EXAM: XR Chest, 1 View CLINICAL HISTORY: Chest pain, nonspecific. TECHNIQUE: Frontal view of the chest. COMPARISON: Portable chest single view dated 11/01/2024 FINDINGS: Lungs: Shallow inspiration. No focal airspace consolidation. The pulmonary vasculature is stable and unremarkable. Pleural space: Unremarkable. No pneumothorax. No large pleural effusion. Heart: Unremarkable. No cardiomegaly. Mediastinum: The mediastinal contours are stable with similar right hilar presumed vascular findings. No tracheal deviation. Bones/joints: Unremarkable. No acute fracture. IMPRESSION: Poor inspiratory effort, similar to the previous examination. No acute cardiopulmonary process or significant alteration from the prior examination. Electronically signed by: Elmer Jose MD 12/21/24 21:09 PM Discharge Plan Visit Data Chief Complaint: Illness Stated Complaint: CHEST PAIN, HIGH HR, PAIN BEHIND EYE ED Provider: Jae Sanchez Discharge Problem: Chest pain, HTN (hypertension) Discharge Problem: Chest pain Qualifiers: Chest pain type: unspecified Qualified Code(s): R07.9 - Chest pain, unspecified HTN (hypertension) Qualifiers: Hypertension type: unspecified Qualified Code(s): I10 - Essential (primary) hypertension
[2024-12-21] MEDS: ASPIRIN CHEW 324 MG PO STA (19:30)
[2024-12-21 19:37] LABS: Basophils # (auto) 0.05 K/uL (0.00-0.20); Basophils % (auto) 0.7 %; Eosinophils # (auto) 0.31 K/uL (0.00-0.50); Eosinophils % (auto) 4.3 %; Hematocrit (blood only) 39.7 % (42.0-52.0); Hemoglobin 12.8 g/dl (14.0-18.0); Immature Granulocytes # (auto) 0.14 K/uL (0.01-0.20); Immature Granulocytes % (auto) 1.9 %; Lymphocytes # (auto) 1.81 K/uL (1.20-3.40); Lymphocytes % (auto) 25.1 %; Mean Corpuscular Hemoglobin 26.5 pg (25.0-34.0); Mean Corpuscular Hgb Conc 32.2 g/dL (32.0-36.0); Mean Corpuscular Volume 82.2 fL (80.0-100.0); Mean Platelet Volume 9.3 fL (9.4-12.4); Monocytes # (auto) 0.62 K/uL (0.11-0.59); Monocytes % (auto) 8.6 %; Neutrophils # (auto) 4.28 K/uL (1.40-6.50); Neutrophils % (auto) 59.4 %; Platelet Count 244 K/uL (130-400); RDW Coefficient of Variation 14.6 % (11.5-14.5); RDW Standard Deviation 43.4 fL (36.4-46.3); Red Blood Count 4.83 M/uL (4.70-6.10); White Blood Count 7.21 K/ul (4.8-10.8)
[2024-12-21 19:50] LABS: Alanine Aminotransferase 18 U/L (7-52); Albumin Globulin Ratio 1.1 (0.9-2); Albumin Level 4.1 gm/dl (3.4-5.0); Alkaline Phosphatase 79 U/L (34-104); Anion Gap 6 (3-11); Aspartate Aminotransferase 16 U/L (13-39); BUN Creatinine Ratio 32.1 (10-20); Bilirubin,Total 0.4 mg/dl (0.2-1.0); Blood Urea Nitrogen 36 mg/dl (6-23); Calcium 10.3 mg/dl (8.6-10.3); Carbon Dioxide 33 mmol/L (21-32); Chloride 100 mmol/L (98-107); Globulin 3.9 gm/dl (2.5-4.0); Glucose 160 mg/dl (70-99(Fasting)); Lipase 80 U/L (11-82); Potassium 3.6 mmol/L (3.5-5.1); Sodium 139 mmol/L (136-145)
[2024-12-21] MEDS: LABETALOL HCL IV 5 MG/ML 20ML IV STA (20:26)
--- NOTE | 2024-12-21 21:10 | XRay Report ---
Exam(s): XR CXR 1 VIEW EXAM: XR Chest, 1 View CLINICAL HISTORY: Chest pain, nonspecific. TECHNIQUE: Frontal view of the chest. COMPARISON: Portable chest single view dated 11/01/2024 FINDINGS: Lungs: Shallow inspiration. No focal airspace consolidation. The pulmonary vasculature is stable and unremarkable. Pleural space: Unremarkable. No pneumothorax. No large pleural effusion. Heart: Unremarkable. No cardiomegaly. Mediastinum: The mediastinal contours are stable with similar right hilar presumed vascular findings. No tracheal deviation. Bones/joints: Unremarkable. No acute fracture. IMPRESSION: Poor inspiratory effort, similar to the previous examination. No acute cardiopulmonary process or significant alteration from the prior examination. Electronically signed by: Elmer Jose MD 12/21/24 21:09 PM
[2024-12-21 21:31] LABS: Magnesium 1.9 mg/dl (1.7-2.4)
[2024-12-21] MEDS: NITROGLYCERIN SL 0.4 MG/TAB TAB SL STA (21:32)
--- NOTE | 2024-12-21 21:59 | History & Physical Report ---
Date of Service December 21, 2024 Assessment & Plan (1) Chest pain: Plan: Atypical chest pain Multifactorial Uncontrolled hypertension, ? Possible noncompliance, untreated DAMION contributory to uncontrolled hypertension Viral bronchitis Nonobstructive CAD chronic diastolic heart failure (EF 55 to 60%, TTE 2023), patient euvolemic to dry hyperlipidemia, on statin Rx COPD/RLD, not in acute exacerbation DAMION/CPAP noncompliance PE/DVT status post anticoagulation DM2 on insulin pump, suboptimal control as of recent hemoglobin A1c of 11.18 September 2024. Patient left home insulin pump supplies at home. hx NAFLD chronic anemia, hemoglobin at baseline intellectual disability as per records ongoing tobacco abuse OBS Admit to PCU Follow troponin Titrate home BP meds, outpatient sleep study Supportive management for viral bronchitis Basal bolus insulin while patient off home insulin pump, ISS BG goal 1 10-1 40, carb count coverage Nicotine patch as needed DVT prophylaxis. Lovenox subcu Full code Text document was generated using Sensorin voice recognition software. It may contain grammatical or spelling errors. Kindly contact undersigned for clarification of any documentation item in question. History of Present Illness Chief Complaint: Chest pain Primary Care Provider: Velasquez Valencia MD History obtained from patient and records. Medical history significant for chronic diastolic heart failure (EF 55 to 60%, TTE 2023), CAD, hypertension, hyperlipidemia, COPD/RLD, DAMION (current CPAP noncompliance), PE/DVT status post anticoagulation, DM2 on insulin pump, NAFLD, GERD, gastroparesis, history of pancreatitis, chronic anemia (baseline hemoglobin 11-12), morbid obesity, intellectual disability as per records, ongoing tobacco abuse. Last confinement September 2024 for chest pain in the setting of abnormal outpatient stress test. Moderate CAD left coronary artery anatomy without obstruction on diagnostic cardiac cath. 2 days history of dry cough symptoms, not sure about sick contacts. Today, patient noted substernal chest tightness worse on exertion. Denies fluid retention. Patient also noted achy headache behind the left eye. No changes in vision. Patient claims to be compliant with home medications. SBP 180s upon arrival at the ER. Chest pain not relieved by nitroglycerin at the ER. 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 Cephalosporins Allergy Unknown Unknown Verified 11/14/24 12:17 empagliflozin AdvReac Unknown put me Verified 11/14/24 12:17 [From Jardiance] into ketoacidosis? NSAIDS (Non-Steroidal AdvReac Unknown use with Verified 11/14/24 12:17 Anti-Inflamma caution : hx esophagus damage Home Medications Medication Instructions Recorded Confirmed Type dicyclomine 10 mg capsule 10 mg PO QID PRN Diarrhea 05/01/20 12/21/24 History atorvastatin 20 mg tablet 20 mg PO HS 30 days #30 tabs 09/17/24 12/21/24 Rx famotidine 20 mg tablet 20 mg PO HS 30 days #30 tabs 09/17/24 12/21/24 Rx losartan 50 mg tablet 50 mg PO BID 30 days #30 tabs 09/17/24 12/21/24 Rx omeprazole 40 mg capsule,delayed 40 mg PO DAILYBB 30 days #30 caps 09/17/24 12/21/24 Rx release terazosin 1 mg capsule 1 mg PO HS 30 days #30 caps 09/17/24 12/21/24 Rx metoprolol succinate 100 mg 100 mg PO BID 09/30/24 12/21/24 History tablet,extended release 24 hr polyethylene glycol 3350 17 gram 17 g PO DAILY PRN Constipation 09/30/24 12/21/24 History oral powder packet haloperidol 1 mg tablet 1 mg PO QAM PRN gastroparesis 10/10/24 12/21/24 History symptoms metoprolol succinate 25 mg 25 mg PO BID #60 tabs 10/12/24 12/21/24 Rx tablet,extended release 24 hr aspirin 81 mg tablet,delayed 81 mg PO QAM 12/21/24 12/21/24 History release metformin 500 mg tablet,extended 500 mg PO QAM 12/21/24 12/21/24 History release 24 hr spironolactone 25 mg tablet 50 mg PO DAILY 12/21/24 12/21/24 History torsemide 20 mg tablet 20 mg PO QPM 12/21/24 12/21/24 History Past Med/Surg History Problem List (Updated 12/22/24 @ 00:06 by Background Daemon) HTN (hypertension) (Acute) Chest pain (Acute) Abnormal nuclear cardiac imaging test Dyslipidemia, goal LDL below 70 Acute hyperglycemia (Acute) Abnormal stress test (Acute) Precordial chest pain (Acute) HTN, goal below 130/80 Diarrhea (Acute) Chest pain (Acute) Generalized pain (Acute) Hyperglycemia due to type 2 diabetes mellitus (Acute) Chest pain (Acute) Chest pain Atypical chest pain Noncompliance with CPAP treatment Hypomagnesemia (Acute) Elevated lactic acid level (Acute) PASHA (acute kidney injury) (Acute) Abdominal pain (Acute) Acute and chronic respiratory failure with hypercapnia Shortness of breath (Acute) 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 Garcia Morbid obesity (Acute) Chronic respiratory failure with hypercapnia Diabetic peripheral neuropathy associated with type 2 diabetes mellitus Loss of protective sensation of skin of foot Epigastric abdominal pain Encounter for pre-operative examination Colon polyp Medical History Chronic diastolic heart failure Volume overload Arthritis Low magnesium level History of RSV infection & flu a few months ago. Tachycardia chronic high heart rate - unknown etiology - a few months ago increased dose of metoprolol. Rhinovirus dx May 23 [facility] & another illness dx - ? name of /antibiotic and inhalers for. feeling better: only symptom : sore throat. COPD (chronic obstructive pulmonary disease) ? dx of Peripheral neuropathy Diabetes mellitus, type 2 Hypertension Tobacco use Restrictive lung disease Elevated liver function tests History of DVT (deep vein thrombosis) "years ago">no known cause Tussive syncope "occurred only one time, no recent issues" Esophagitis Osteoarthritis Hx of pancreatitis resolved GERD (gastroesophageal reflux disease) Cardiac murmur A CHILD Erectile dysfunction MRSA (methicillin resistant Staphylococcus aureus) carrier over 2 yrs ago>"not sure where it was" Intellectual disability Obstructive sleep apnea cpap Obesity IBS (irritable bowel syndrome) History of ventricular tachycardia "nonsustained" Surgical History History of appendectomy 02/10/2023 History of reduction of nasal fracture 09/25/21-Dr. Garcia Status post incision and drainage LLE History of shoulder surgery right-2019 H/O foot surgery LEFT-2018 History of arthroscopy LEFT [id number] History of esophagogastroduodenoscopy (EGD) History of colonoscopy with most recent attempt: failed prep. Told would need a 2 day prep prior to colonoscopy in Sep 2023. History of tooth extraction History of tonsillectomy and adenoidectomy 1979 Family History Brother Family history of diabetes mellitus Environmental allergies Asthma Mother Family history of diabetes mellitus Hypertension Environmental allergies Father Family history of diabetes mellitus Hypertension Heart disease Grandfather (Paternal) Lung cancer smoker Aunt Bleeding disorder Other No family history of adverse response to anesthesia Social History Smoking Status: Current every day smoker Tobacco Type: Cigarettes Age Started Using Tobacco: 14; Cigarettes Per Day: 20; Second Hand Exposure: No; Do You Dip or Chew Tobacco: No; Hx Alcohol Use: Yes Alcohol type: beer Alcohol Intake Frequency: Monthly or Less Alcohol Intake Frequency Comment: seldom, a couple times per year if that per pt Hx Substance Use: No Preferred Language: Palauan Communication Ability: Effective Stock Sorter Required: No Beliefs That Will Affect Care: None marital status: / marital status details: single at this time Current Living Situation: Family Current Living Situation Comment: Lives with family forming department supervisor and his girlfriend forming department supervisor per patient. 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 other: girlfriend able to assist with dressing changes and care as needed Feels Safe at Home: Yes Diet: diabetic during the past year weight has: remained stable Assistive Devices: Prosthesis Review of Systems Review of Systems: As per HPI, all other systems reviewed and negative Physical Exam Physical Exam: GENERAL: Comfortable, pleasant, morbidly obese, no respiratory distress SKIN: Pallor, warm HEENT: Alopecia, no obvious facial swelling, pale palpebral conjunctivae, no ptosis, moist buccal mucosa NECK : Supple, short neck, no tenderness CHEST : Decreased breath sounds, no tenderness HEART : RRR, no obvious murmurs ABDOMEN: Some distention, no abdominal tenderness EXTREMITIES : RLE swelling without tenderness, left BKA stump NEUROLOGIC : Coherent, no facial asymmetry, no other gross focality Results & Data Results & Data Vital Signs (Past 12 Hours) Vital Signs Temp Pulse Pulse Resp BP BP Pulse Ox 12/21/24 21:00 90 20 165/87 H 94 12/21/24 20:48 142/76 H 12/21/24 20:48 88 H 142/76 H 12/21/24 20:26 97 H 163/65 H 12/21/24 19:25 95 H 20 188/80 H 91 12/21/24 19:16 97 H 12/21/24 19:13 12/21/24 18:55 36.7 C 102 H 18 172/74 H 93 O2 Del Method 12/21/24 21:00 12/21/24 20:48 12/21/24 20:48 12/21/24 20:26 12/21/24 19:25 Room Air 12/21/24 19:16 12/21/24 19:13 Room Air 12/21/24 18:55 Room Air Laboratory Results Laboratory Results WBC 7.21 K/ul (4.8-10.8) 12/21/24 19:15 RBC 4.83 M/uL (4.70-6.10) 12/21/24 19:15 Hgb 12.8 g/dl (14.0-18.0) L 12/21/24 19:15 Hct 39.7 % (42.0-52.0) L 12/21/24 19:15 MCV 82.2 fL (80.0-100.0) 12/21/24 19:15 MCH 26.5 pg (25.0-34.0) 12/21/24 19:15 MCHC 32.2 g/dL (32.0-36.0) 12/21/24 19:15 RDW Std Deviation 43.4 fL (36.4-46.3) 12/21/24 19:15 RDW Coeff of Abiodun 14.6 % (11.5-14.5) H 12/21/24 19:15 Plt Count 244 K/uL (130-400) 12/21/24 19:15 MPV 9.3 fL (9.4-12.4) L 12/21/24 19:15 Immature Gran % (Auto) 1.9 % 12/21/24 19:15 Neut % (Auto) 59.4 % 12/21/24 19:15 Lymph % (Auto) 25.1 % 12/21/24 19:15 Henderson % (Auto) 8.6 % 12/21/24 19:15 Eos % (Auto) 4.3 % 12/21/24 19:15 Baso % (Auto) 0.7 % 12/21/24 19:15 Neut # (Auto) 4.28 K/uL (1.40-6.50) 12/21/24 19:15 Lymph # (Auto) 1.81 K/uL (1.20-3.40) 12/21/24 19:15 Henderson # (Auto) 0.62 K/uL (0.11-0.59) H 12/21/24 19:15 Eos # (Auto) 0.31 K/uL (0.00-0.50) 12/21/24 19:15 Baso # (Auto) 0.05 K/uL (0.00-0.20) 12/21/24 19:15 Immature Gran # (Auto) 0.14 K/uL (0.01-0.20) 12/21/24 19:15 Sodium 139 mmol/L (136-145) 12/21/24 19:15 Potassium 3.6 mmol/L (3.5-5.1) 12/21/24 19:15 Chloride 100 mmol/L (98-107) 12/21/24 19:15 Carbon Dioxide 33 mmol/L (21-32) H 12/21/24 19:15 Anion Gap 6 (3-11) 12/21/24 19:15 BUN 36 mg/dl (6-23) H 12/21/24 19:15 Creatinine 1.12 mg/dl (0.6-1.4) 12/21/24 19:15 Est Cr Clr Drug Dosing Not Reportable 12/21/24 19:15 eGFR 79.54 12/21/24 19:15 BUN/Creatinine Ratio 32.1 (10-20) H 12/21/24 19:15 Glucose 160 mg/dl (70-99(Fasting)) H 12/21/24 19:15 Calcium 10.3 mg/dl (8.6-10.3) 12/21/24 19:15 Magnesium 1.9 mg/dl (1.7-2.4) 12/21/24 19:15 Total Bilirubin 0.4 mg/dl (0.2-1.0) 12/21/24 19:15 AST 16 U/L (13-39) 12/21/24 19:15 ALT 18 U/L (7-52) 12/21/24 19:15 Alkaline Phosphatase 79 U/L (34-104) 12/21/24 19:15 Troponin I High Sens 7.0 pg/ml (0-20) 12/21/24 19:15 Total Protein 8.0 gm/dl (6.0-8.3) 12/21/24 19:15 Albumin 4.1 gm/dl (3.4-5.0) 12/21/24 19:15 Globulin 3.9 gm/dl (2.5-4.0) 12/21/24 19:15 Albumin/Globulin Ratio 1.1 (0.9-2) 12/21/24 19:15 Lipase 80 U/L (11-82) 12/21/24 19:15 Impressions Chest X-Ray 12/21/24 19:18 Exam(s): XR CXR 1 VIEW EXAM: XR Chest, 1 View CLINICAL HISTORY: Chest pain, nonspecific. TECHNIQUE: Frontal view of the chest. COMPARISON: Portable chest single view dated 11/01/2024 FINDINGS: Lungs: Shallow inspiration. No focal airspace consolidation. The pulmonary vasculature is stable and unremarkable. Pleural space: Unremarkable. No pneumothorax. No large pleural effusion. Heart: Unremarkable. No cardiomegaly. Mediastinum: The mediastinal contours are stable with similar right hilar presumed vascular findings. No tracheal deviation. Bones/joints: Unremarkable. No acute fracture. IMPRESSION: Poor inspiratory effort, similar to the previous examination. No acute cardiopulmonary process or significant alteration from the prior examination. Electronically signed by: Elmer Jose MD 12/21/24 21:[address] head: No acute intracranial process or significant alteration from the prior examination. CTA chest: 1. Accounting for limitations with respiratory artifact, there is no evidence for pulmonary embolism. Several distal subsegmental pulmonary artery segments are of limited diagnostic quality. No CT evidence for right heart strain. 2. No definite focal airspace consolidation. Central peribronchial cuffing is minimally more prominent from the prior examination. This may represent chronic changes or subtle bronchitis. No bronchial obstruction or postobstructive pneumonitis. No pleural effusion or pneumothorax. Diagnostic Findings EKG as per my interpretation :Rate 95, NSR, normal axis, incomplete RBBB, T wave flattening lateral leads (1) Chest pain Chest pain type: unspecified Qualified Code(s): R07.9 - Chest pain, unspecified
[2024-12-21] MEDS ORDERED: POLYETHYLENE (MIRALAX) 17 GM PACK PO PRN (22:03)
[2024-12-21] MEDS ORDERED: ACETAMINOPHEN 325 MG TAB PO PRN (22:06)
[2024-12-21] MEDS ORDERED: PROMETHAZINE 12.5 MG/50.5 ML BAG IV PRN (22:06)
[2024-12-21] MEDS ORDERED: LORazepam 0.5 MG TAB PO PRN (22:07)
[2024-12-21] MEDS: oxyCODONE HCL IR 5 MG TAB (IMMEDIATE RELEASE) PO STA (22:13)
[2024-12-21] MEDS: LOSARTAN POTASSIUM 50 MG TAB PO STA (22:13)
[2024-12-21 22:21] LABS: Adenovirus PCR Not Detected (NotDetected); Bordetella parapertussis PCR Not Detected (NotDetected); Bordetella pertussis PCR Not Detected (NotDetected); Chlamydia pneumoniae PCR Not Detected (NotDetected); Coronavirus 229E PCR Not Detected (NotDetected); Coronavirus CoV-2 (COVID19)PCR Not Detected (NotDetected); Coronavirus HKU1 PCR Not Detected (NotDetected); Coronavirus NL63 PCR Not Detected (NotDetected); Coronavirus OC43PCR Not Detected (NotDetected); Human Metapneumovirus PCR Not Detected (NotDetected); Influenza A PCR Not Detected (NotDetected); Influenza B PCR Not Detected (NotDetected); Mycoplasma pneumoniae PCR Not Detected (NotDetected); Parainfluenza Virus 1 PCR Not Detected (NotDetected); Parainfluenza Virus 2 PCR Not Detected (NotDetected); Parainfluenza Virus 3 PCR Not Detected (NotDetected); Parainfluenza Virus 4 PCR Not Detected (NotDetected); Respiratory Syncytial VirusPCR Not Detected (NotDetected); Rhinovirus/Enterovirus PCR Not Detected (NotDetected)
[2024-12-21] MEDS: OPTIRAY 320 125ml IV ONE (23:05)
[2024-12-21] MEDS: TERAZOSIN HCL 1 MG CAP PO SCH (23:08)
[2024-12-21 23:51] LABS: Partial Thromboplastin Time 28 Seconds (21-31)
[2024-12-21] MEDS ORDERED: DEXTROSE 50% 50 ML SYRINGE IV PRN (23:54)
[2024-12-21] MEDS ORDERED: GLUCOSE 10 TAB/TUBE PO PRN (23:54)
[2024-12-21] MEDS ORDERED: GLUCAGON FOR INJ 1 MG VIAL SQ PRN (23:54)
[2024-12-21] MEDS ORDERED: GLUCOSE 40% GEL 15 GM TUBE PO PRN (23:54)
[2024-12-21] MEDS ORDERED: CARBOHYDRATES FOR HYPOGLYCEMIA PO PRN (23:54)
--- NOTE | 2024-12-22 00:28 | CT Scan Report ---
Exam(s): CT HEAD Without Contrast EXAM: CT Head Without Intravenous Contrast CLINICAL HISTORY: avery. TECHNIQUE: Axial computed tomography images of the head/brain without intravenous contrast. CTDI is 27.51 mGy and DLP is 789.24 mGy-cm. Automated exposure control was utilized for the study. A dose lowering technique was utilized adhering to the principles of ALARA. COMPARISON: CT head without contrast dated 09/30/2024 FINDINGS: Brain: Unremarkable. No hemorrhage. No significant white matter disease. No edema. Ventricles: Unremarkable. No ventriculomegaly. Bones/joints: Unremarkable. No acute fracture. Soft tissues: The overlying soft tissues are stable in appearance. Sinuses: The paranasal sinuses are well aerated without mucosal thickening or air-fluid levels. Mastoid air cells: Unremarkable as visualized. No mastoid effusion. IMPRESSION: No acute intracranial process or significant alteration from the prior examination. Electronically signed by: Elmer Jose MD 12/22/24 00:27 AM
[2024-12-22] MEDS: INSULIN ASPART PER UNIT CHARGE SC SCH (00:29)
--- NOTE | 2024-12-22 00:40 | CT Scan Report ---
Exam(s): CTA CHEST IV Amt: 118 ml optiray 320 EXAM: CT Angiography Chest With Intravenous Contrast CLINICAL HISTORY: cp. TECHNIQUE: Axial computed tomographic angiography images of the chest with intravenous contrast. CTDI is 36.09 mGy and DLP is 1165.53 mGy-cm. Automated exposure control was utilized for the study. A dose lowering technique was utilized adhering to the principles of ALARA. MIP reconstructed images were created and reviewed. COMPARISON: CTA chest 09/30/2024 FINDINGS: Limitations: There is respiratory artifact, which degrades image quality throughout the examination. Pulmonary arteries: Accounting for limitations with respiratory artifact, there is no evidence for pulmonary embolism. Several distal subsegmental pulmonary artery segments are of limited diagnostic quality. Aorta: The thoracic aorta is normal in caliber. No dissection or aneurysm. Lungs: No definite focal airspace consolidation. Central peribronchial cuffing is minimally more prominent from the prior examination. Pleural space: Unremarkable. No significant effusion. No pneumothorax. Heart: The cardiac chambers are within normal limits in size. Moderate LAD calcification. No pericardial effusion. Mediastinum: Similar concentric mucosal thickening of the mid thoracic esophagus. The esophagus is decompressed without paraesophageal inflammatory changes. Bones/joints: No acute fracture. No dislocation. Soft tissues: Unremarkable. Lymph nodes: Unremarkable. No enlarged lymph nodes. IMPRESSION: 1. Accounting for limitations with respiratory artifact, there is no evidence for pulmonary embolism. Several distal subsegmental pulmonary artery segments are of limited diagnostic quality. No CT evidence for right heart strain. 2. No definite focal airspace consolidation. Central peribronchial cuffing is minimally more prominent from the prior examination. This may represent chronic changes or subtle bronchitis. No bronchial obstruction or postobstructive pneumonitis. No pleural effusion or pneumothorax. Electronically signed by: Elmer Jose MD 12/22/24 00:39 AM
[2024-12-22] MEDS: SODIUM CHLORIDE 0.9% 1,000 ML IV ONE (00:41)
[2024-12-22] MEDS: NYSTATIN POWDER 15GM BTL EXT SCH (00:55)
[2024-12-22] MEDS: METOPROLOL SUCC 50MG EXT REL TAB PO STA (02:02)
[2024-12-22] MEDS: guaiFENesin 600 MG TABCR PO SCH (02:02)
[2024-12-22] MEDS ORDERED: ALBUT/IPRATROP 3MG/0.5MG NEB 3 ML VIAL NEB PRN (03:05)
[2024-12-22 06:04] LABS: Basophils # (auto) 0.06 K/uL (0.00-0.20); Basophils % (auto) 0.7 %; Eosinophils # (auto) 0.35 K/uL (0.00-0.50); Eosinophils % (auto) 4.3 %; Hematocrit (blood only) 37.1 % (42.0-52.0); Hemoglobin 11.5 g/dl (14.0-18.0); Immature Granulocytes % (auto) 1.2 %; Lymphocytes # (auto) 1.73 K/uL (1.20-3.40); Lymphocytes % (auto) 21.4 %; Mean Corpuscular Volume 83.9 fL (80.0-100.0); Mean Platelet Volume 9.3 fL (9.4-12.4); Monocytes # (auto) 0.81 K/uL (0.11-0.59); Neutrophils # (auto) 5.02 K/uL (1.40-6.50); Neutrophils % (auto) 62.4 %; Platelet Count 226 K/uL (130-400); RDW Coefficient of Variation 14.8 % (11.5-14.5); Red Blood Count 4.42 M/uL (4.70-6.10); White Blood Count 8.07 K/ul (4.8-10.8)
[2024-12-22] MEDS: PANTOprazole 40 MG TAB PO SCH (06:05)
[2024-12-22 06:15] LABS: BUN Creatinine Ratio 30.4 (10-20); Calcium 9.5 mg/dl (8.6-10.3); Creatinine Clr Calc Pharmacy 125.7 ml/min; Potassium 4.6 mmol/L (3.5-5.1)
--- NOTE | 2024-12-22 07:23 | Electrocardiogram Report ---
Test Reason : Blood Pressure : */* mmHG Vent. Rate : 96 BPM Atrial Rate : 96 BPM P-R Int : 136 ms QRS Dur : 102 ms QT Int : 372 ms P-R-T Axes : 62 15 69 degrees QTcB Int : 469 ms Normal sinus rhythm Incomplete right bundle branch block Normal ECG When compared with ECG of 01-Nov-2024 12:25, No significant change Confirmed by Nicko Draper ([id number]) on 12/22/2024 7:22:57 AM Referred By: REFERRED SELF Confirmed By: Nicko Draper
[2024-12-22] MEDS: oxyCODONE HCL IR 5 MG TAB (IMMEDIATE RELEASE) PO PRN (07:55)
[2024-12-22] MEDS: LANTUS PER UNIT CHARGE SQ SCH (08:11)
[2024-12-22] MEDS ORDERED: METOPROLOL SUCC 25MG EXT REL TAB PO SCH (09:00)
[2024-12-22] MEDS: ASPIRIN 81 MG ECTAB PO SCH (09:14)
[2024-12-22] MEDS: ENOXAPARIN INJ 40 MG/0.4 ML SYR SQ SCH (09:14)
[2024-12-22] MEDS: LOSARTAN POTASSIUM 50 MG TAB PO SCH (09:15)
[2024-12-22] MEDS: METOPROLOL SUCC 50MG EXT REL TAB PO SCH (09:15)
[2024-12-22] MEDS: MoRPHine SULFATE 10 MG/ML CARP/VIAL IV PRN (09:21)
[2024-12-22] MEDS: INFLUENZA VACC TS2024-25(6m+)/PF (IIV3) 0.5mL Syr IM ONE (09:27)
[2024-12-22] MEDS: DOXYCYCLINE HYCLATE 100 MG CAP PO SCH (11:40)
[2024-12-22] MEDS: amLODIPine BESYLATE 5 MG TAB PO ONE (11:40)
--- OUTSIDE RECORDS SUMMARY | 2024-12-22 12:50 | External Medical Summary | Summary of Care ---
Author Name Unknown Organization [facility] Address [address] [facility] [place] [address] Phone [phone] Care Team Providers Care Web Marketing Coordinator Name Role Phone Velasquez Valencia MD Primary Care Provider +1- [phone] Encounter Details Date Type Department Care Team (Late st Contact Info) Description 12/04/2024 Population Health External Data Unspecified Department Allergies Active Allergy Reactions Criticality Noted Date Comments Pioglitazone 07/19/2024 Cefaclor Unknown 07/26/2018 As child Empagliflozin Other (Please comment) 05/16/2021 DKA with hospitalization Nsaids High 04/19/2019 Gastric problems Other Reaction(s): gastroparesis, kidney problems, use with caution : hx esophagus damage documented as of this encounter (statuses as of 12/04/2024) Medications Ondansetron HCl 4 MG Oral Tablet Take 1 Tablet by mouth every 8 hours as needed for Nausea. 20 Tablet 11/05/2023 11:40 AM EST 4 Active BD Pen Needle Short U/F 31G X 8 MM (Insulin Pen Needle)Indicatio ns:Type 2 diabetes mellitus with hemoglobin A1c goal of less than 7.0% ([facility]) Use to inject insulin 5 times daily 500 Each 3 11/09/2024 12:18 PM EST 4 Active Polyethylene Glycol 3350 17 GM/SCOOP Oral Powder (Miralax) Take 1 scoop daily in 8 ounces of water. 510 g 5 4 Active OneTouch Delica Lancets 33GIndications:T ype [...] 11:52 AM EST 4 Active Dexcom G6 TransmitterIndic ations:Type 2 diabetes mellitus with hemoglobin A1c goal of less than 7.0% (HCC) Use as directed. Change every 90 days 1 Each 5 10/04/2024 11:12 AM EST 4 Active Haloperidol 1 MG Oral Tablet (Haldol) Take 1 Tablet by mouth in the morning. 4 Active Omeprazole 40 MG Oral Capsule [...] Tablet by mouth in the morning. Active Famotidine 20 MG Oral Tablet (Pepcid) Take 1 Tablet by mouth at bedtime. Active Losartan Potassium 50 MG Oral Tablet (Cozaar) Take 1 Tablet by mouth in the morning and 1 Tablet before bedtime. Active GoodSense Arthritis Pain 1 % External Gel 4 Active OneTouch Verio In Vitro Strip (Glucose Blood)Indication s:Type 2 diabetes mellitus with hemoglobin A1c goal of less than 7.0% (HCC) Use to check blood sugar once daily as needed 100 Strip 4 10/13/2024 12:51 PM EST 4 Active Omnipod 5 UflR1G3 Pods Gen 5Indications:Typ e 2 diabetes mellitus with hemoglobin A1c goal of less than 7.0% (HCC) Use as directed. Change pod every 1.5 days 60 Each 3 11/09/2024 12:19 PM EST 5 Active Insulin Aspart 100 UNIT/ML Injection Solution (NovoLOG)Indicat ions:Type 2 diabetes mellitus with hemoglobin A1c goal of less than 7.0% (HCC) Inject up to 140 units daily using Omnipod 5 140 mL 4 11/07/2024 11:26 AM EST 5 Active Saccharomyces boulardii 250 MG Oral Capsule (Florastor)Indic ations:Diarrhea, unspecified type Take 1 Capsule by mouth in the morning and 1 Capsule before bedtime. 30 Capsule 5 Active Torsemide 20 MG Oral Tablet (Demadex) Take 1 Tablet by mouth in the morning. 5 Active Spironolactone 25 MG Oral Tablet (Aldactone)Indic ations:HTN, goal below 140/90 Take 1 Tablet by mouth in the morning. 90 Tablet 3 5 Active Terazosin HCl 1 MG Oral Capsule (Hytrin) Take 1 Capsule by mouth at bedtime. 90 Capsule 3 5 Active Atorvastatin Calcium 20 MG Oral Tablet (Lipitor) Take 1 Tablet by mouth at bedtime. 90 Tablet 3 5 Active Metoprolol Succinate ER 100 MG Oral Tablet Extended Release 24 Hour (toPROL XL) Take 1 Tablet by mouth in the morning and 1 Tablet before bedtime. 180 Tablet 3 5 Active Metoprolol Succinate ER 25 MG Oral Tablet Extended Release 24 Hour (toPROL XL) Take 1 Tablet by mouth in the morning and 1 Tablet before bedtime. 180 Tablet 3 5 Active metFORMIN HCl ER 500 MG Oral Tablet Extended Release 24 Hour (Glucophage XR)Indications:T ype 2 diabetes mellitus with hemoglobin A1c goal of less than 7.0% ([facility]) Take 1 Tablet by mouth daily with dinner. 90 Tablet 1 11/29/2024 9:39 AM EST 5 Active amLODIPine Besylate 5 MG Oral Tablet (Norvasc) Take 1 Tablet by mouth in the morning. Active Pioglitazone HCl 45 MG Oral Tablet (Actos) Take 1 Tablet by mouth in the morning. Active Gabapentin 300 MG Oral Capsule (Neurontin)Indic ations:Neuropath y Take 1 Capsule by mouth 2 times a day. 180 Capsule 3 5 Active documented as of this encounter (statuses as of 12/04/2024) Active Problems Problem Noted Date Diagnosed Date COPD, group B, by GOLD 2017 classification 11/27 Overview: Per COPD GOLD Classification Chronic diastolic congestive heart failure 11/06 Qplsxwe-Nvgpd-Nufnr disease 11/06/2024 Coronary artery disease invo lving [place] coronary artery of [place] heart without angina pectoris 10/17/2024 Well adult exam 08/06/2024 Overview (10/26/2024): 11/11 EGD WNL. EUS heterogenous pancreas changes. No masses. 08/10 EGD poor prep-repeat. Chest pain, non-cardiac 08/03/2024 Hx of BKA, left 04/27/2024 History of pancreatitis 04/12/2024 History of diabetic ulcer of foot 12/12/2023 Constipation 10/27/2023 Obstructive sleep apnea 11/02/2022 Lumbar disc herniation 10/20/2022 DM type 2 causing vascular disease 10/23/2021 [...] obesity 12/15/2002 Overview (01/13/2010): Per Obesity Taxonomy HTN, goal below 140/90 12/15/2002 Overview (11/14/2009): Per HTN Taxonomy. documented as of this encounter (statuses as of 12/04/2024) Resolved Problems Problem Noted Date Diagnosed Date Resolved Date Fatty (change of) liver, not elsewhere classified 10/17/2024 11/06/2024 S/P hardware removal 03/03/2024 024 Ankle wound, [...] dimer 10/27/2023 10/30/2023 Lactic acidosis 10/27/2023 10/30/2023 Cortical age-related cataract, right eye 09/08/2023 11/27/2024 COPD, moderate 05/25/2023 11/29/2024 Overview: Per COPD GOLD Classification Neuropathy 02/24/2023 05/24/2024 Restrictive lung disease secondary to obesity 01/28/20 23 11/27/2024 Body mass index (BMI) of 40. 0 to 44.9 in adult 10/26/2022 01/26/2024 Overview: Per Obesity protocol Chronic respiratory failure with hypercapnia 11/06/2024 Precordial pain 11/30/2021 05/24/2024 Fracture of nasal [...] Directive brochure offered , patient declined. . LOC PRIM OSTEOARTH- right ANKLE 07/18/2002 04/22/2017 Tobacco use disorder 02/03/2001 016 DM type 2, not at goal 08/01 Overview (08/01/2009): Modified per Diabetes protocol #14. OTHER 04/22/2017 Overview (10/26/2006): osseochondrosis ankle Primary localized osteoarthrosis, lower leg 10/15/2017 documented as of this encounter (statuses as of 12/04/2024) Immunizations Name Administration Dates Next Due COVID-19 mRNA, LNP-s, No Pre serve, 2-Dose Series (gamigo) 10/21/2021,03/01/2021,02/07/2021 H1N1 2009 Influenza, IM 11/04/2009 Pneumococcal Conjugate Vacci ne, 20-valent ([id number]) 07/09/2023 Pneumococcal Polysaccharide PPV23 (Pneumovax) 11/03/2015,02/09/2006 Seasonal [...] ages 0-17 years) Not on file 08/15/2024 Food Insecurity Answer Date Recorded Within the past 12 months, y ou worried that your food would run out before you got the money to buy more. Never true 08/15/20 24 Within the past 12 months, t he food you bought just didn't last and you didn't have money to get more. Never true 08/15/2024 Do you need food for this week? No 08/15/2024 Sex and Gender Information Value Date [...] Care Team (Late st Contact Info) Description 12/29/2024 2:50 PM EDT Office Visit Pharmacy, [address] [place] [phone] [address] [facility] [address] [facility] [address] 01/29/2025 9:30 AM EDT Imaging Radiology [facility] [address] [facility] [address] [facility] [place] [phone] 06/04/2025 9:30 AM EDT Office Visit [facility], [facility] [address] [facility] [address] Sweta Loving, RADIO DISPATCHER [address] [facility] [place] [phone] 07/09/2025 10:00 AM EDT Office Visit Pulmonary Medicine, [facility] [address] [facility] [place] [address] Vishal Wallace MD [address] [facility] [address] Scheduled Procedures Name Priority Associated Diagnoses Date/Ti [...] 11/27/2019, Additional history exists HbA1c 11/09/2024 05/09/2024, 0510/2023, 01/14/2024, Additional history exists Albumin/Creatinine Ratio 01/13/2025 024, 01/05/2023, 09/01/2021, Additional history exists Depression Screening 04/19/2025 04/19/2024 DISCUSS TOBACCO CESSATION (REFER TO SMARTSET #6018) 07/19/2025 07/19/2024, 10/16/2022 Diabetic Eye Exam 09/22/2025 07/28/2023, , 07/22/2023, Additional history exists Postponed from 07/28/2024 (Unavailable) O2 ASSESSMENT COMPLETED IN PAST YEAR FOR COPD 10/26/2025 10/26/2024 GFR 11/27/2025 11/27/2024, 10/19, 10/25/2024, Additional history exists DTap/Tdap Vaccines (2 - Td or Tdap) 05/01/2028 05/01/2018 Colonoscopy 02/21/2029 02/22/2024, 04/2024, 04/15/2023, Additional history exists Colorectal Cancer Screening 02/21/2029 Pneumococcal Vaccine: 50+ Years Completed 07/09/2023, 11/03/2015, 02/09/2006 Lung Cancer Screening [...] on patient's age to complete this topic Meningitis B Vaccine (Bexsero/Trumemba) Aged Out No longer eligible based on patient's age to complete this topic documented as of this encounter Medical Devices Implanted Type Area Hardware Design Engineer Device Identifier Shelf Expiration Date Model / Serial / Lot Suture [place] Dbl Load 4.75mm - [id number] Implanted:Qty: 1 on 12/01/2019 by Judith Condon, DO at [place] [facility] Right: Shoulder [employer] 07/17/2021 AR-2324BCT -2 / / [id number] Suture [place] Dbl Load 5.5mm - [id number] Implanted:Qty: 1 on 12/01/2019 by Judith Condon DO at OR [facility] Right: Shoulder [employer] 09/16/2021 AR-2323BCT -2 / / [id number] documented as of this encounter Advance Directives [...] Advance Directives occurred with: Patient Care Teams Web Marketing Coordinator Relationship Specialty Start Date End Date Velasquez Valencia MD PCP - General Family Medicine 09/09/22 documented as of this encounter
--- OUTSIDE RECORDS SUMMARY | 2024-12-22 12:50 | External Medical Summary | Summary of Care ---
Author Name Unknown Organization [facility] Address [address] [address] Phone [phone] Care Team Providers Care Casting Director Name Role Phone Velasquez Valencia MD Primary Care Provider +1- [phone] Reason for Visit * Reason Onset Date Comments Medication Question 12/11/2024 Encounter Details Date Type Department Care Team (Late st Contact Info) Description 12/11/2024 Telephone Pharmacy, [facility] [address] [place] [phone] [place], [facility] [address] [place] [address] Medication Question Allergies Active Allergy Reactions Criticality Noted Date Comments Pioglitazone 07/19/2024 Cefaclor Unknown 07/26/2018 As child Empagliflozin Other (Please comment) 05/16/2021 DKA with hospitalization Nsaids High 04/19/2019 Gastric problems Other Reaction(s): gastroparesis, kidney problems, use with caution : hx esophagus damage documented as of this encounter (statuses as of 12/11/2024) Medications Ondansetron HCl 4 MG Oral Tablet Take 1 Tablet by mouth every 8 hours as needed for Nausea. 20 Tablet 11/05/2023 11:40 AM EST Active BD Pen Needle Short U/F 31G [...] 4 10/13/2024 12:51 PM EST 4 Active Insulin Aspart 100 UNIT/ML Injection [...] than 7.0% ([facility]) Take 1 Tablet by mouth daily [...] a day. 180 Capsule 3 5 Active Omnipod 5 FoeC8H6 Pods Gen 5Indications:Typ e 2 diabetes mellitus with hemoglobin A1c goal of less than 7.0% (HCC) Use as directed. Change pod every 1.5 days 75 Each 3 5 Active Omnipod 5 DreK9G2 Pods Gen 5Indications:Typ e 2 diabetes mellitus with hemoglobin A1c goal of less than 7.0% (HCC) Use as directed. Change pod every 1.5 days 60 Each 3 11/09/2024 12:19 PM EST 5 12/11/19 25 Discontinu ed(Refill) documented as of this encounter (statuses as of 12/11/2024) Active Problems Problem Noted Date Diagnosed Date COPD, group B, by GOLD 2017 classification 11/27 Overview: Per COPD GOLD Classification Chronic diastolic congestive heart failure 11/06 Umnarhz-Mrhjz-Ixwqg disease 11/06/2024 Coronary artery disease invo lving [place] coronary artery of [place] heart without angina pectoris 10/17/2024 Well adult [...] as of this encounter (statuses as of 12/11/2024) Resolved Problems Problem Noted Date Diagnosed Date [...] as of this encounter (statuses as of 12/11/2024) Immunizations Name Administration Dates Next Due COVID-19 mRNA, LNP-s, No Pre serve, 2-Dose Series (Food Runner) 10/21/2021,03/01/2021,02/07/2021 H1N1 2009 Influenza, IM 11/04/2009 Pneumococcal Conjugate Vacci ne, 20-valent ([id number]) 07/09/2023 Pneumococcal Polysaccharide PPV23 (Pneumovax) 11/03/2015,02/09/2006 Seasonal [...] money to buy more. Never true 08/15/20 Within the past 12 months, t he [...] Notes * Telephone Encounter - Gisel Butler [facility] - 12/11/2024 1:55 PM EST Images from the original note were not included. New script sent to [facility]. Sent 75 for 90 days. PA will certainly be needed for 90 pods for 90 days. Gisel Butler, PharmD, [facility] Clinical Pharmacist Medication Therapy Disease Management 12/11/2024, 1:57 PM * Telephone Encounter - Linette Flood CPhT - 12/11/2024 1:20 PM EST Caller's name: rBy Preferred call back number(OFFICE NUMBER FOR ): [phone] Reason for call: Medication question: Omnipod Sensors Patient calling in to speak with [facility] Gisel. He states he saw her a few weeks ago and they were discussing how often he is changing his sensors. Patient states he has been changing sensor daily, so heis wondering if new Rx can be called into [facility] for a quantity of 90 to last him 90 days. Please advise. Thank you, Linette Flood CPhT Health And Safety Trainer II [facility] 12/11/2024,1:20 PM documented in this encounter Plan of Treatment Upcoming Encounters Date Type Department Care Team (Late st Contact Info) Description 12/29/2024 2:50 PM EDT Office Visit [address] [place] [phone] [address] [facility] [address] [facility] [address] 01/29/2025 9:30 AM EDT Imaging Radiology [facility] [facility] [address] [facility] [place] [phone] 06/04/2025 9:30 AM EDT Office Visit Cardiology, [facility] [address] [facility] [place] [address] Sweta Loving, SHY [address] [facility] [place] [phone] 07/09/2025 10:00 AM EDT Office Visit Pulmonary Medicine, [facility] [address] [facility] [place] [address] Vishal Wallace MD [address] [facility] [address] Scheduled Procedures Name Priority Associated Diagnoses Date/Ti [...] (REFER TO SMARTSET #3291) 07/19/2025 07/19/2024, 10/16/2022 Diabetic Eye Exam 09/22/2025 [...] encounter Medical Devices Implanted Type Area Flight Line Mechanic Device Identifier Shelf Expiration Date Model / Serial / Lot Suture [place] Dbl Load 4.75mm - [id number] Implanted:Qty: 1 on 12/01/2019 by [facility] Right: Shoulder [employer] 07/17/2021 AR-2324BCT -2 / / [id number] Suture [place] Dbl Load 5.5mm - [id number] Implanted:Qty: 1 on 12/01/2019 by Judith Condon, at OR [facility] Right: Shoulder [employer] 09/16/2021 AR-2323BCT -2 / / [id number] documented as of this encounter Visit Diagnoses Diagnosis Type 2 diabetes mellitus with hemoglobin A1c goal of less than 7.0% ([facility]) documented in this encounter Advance Directives * [...] Advance Directives occurred with: Patient Care Teams Casting Director Relationship Specialty Start Date End Date Velasquez Valencia MD PCP - General Family Medicine 09/09/22 documented as of this encounter
--- OUTSIDE RECORDS SUMMARY | 2024-12-22 12:50 | External Medical Summary | Summary of Care ---
Author Name Unknown Organization [facility] Address [address] [facility] [place] [address] Phone [phone] Care Team Providers Care Human Performance Technologist Name Role Phone Velasquez Valencia MD Primary Care Provider +1- [phone] Encounter Details Date Type Department Care Team (Late st Contact Info) Description 12/01/2024 Population Health External Data Unspecified Department Allergies Active Allergy Reactions Criticality Noted Date Comments Pioglitazone 07/19/2024 Cefaclor Unknown 07/26/2018 As child Empagliflozin Other (Please comment) 05/16/2021 DKA with hospitalization Nsaids High 04/19/2019 Gastric problems Other Reaction(s): gastroparesis, kidney problems, use with caution : hx esophagus damage documented as of this encounter (statuses as of 12/01/2024) Medications Ondansetron HCl 4 MG Oral Tablet Take 1 Tablet by mouth every 8 hours as needed for Nausea. 20 Tablet 11/05/2023 11:40 AM EST 4 Active BD Pen Needle Short U/F 31G X 8 MM (Insulin Pen Needle)Indicatio ns:Type 2 diabetes mellitus with hemoglobin A1c goal of less than 7.0% ([facility]) Use to inject insulin 5 times [...] 12:51 PM EST 4 Active Omnipod 5 [id number] Pods Gen 5Indications:Typ e 2 diabetes mellitus [...] than 7.0% ([facility]) Take 1 Tablet by mouth daily [...] as of this encounter (statuses as of 12/01/2024) Active Problems Problem Noted Date Diagnosed Date COPD, group B, by GOLD 2017 classification 11/27 Overview: Per COPD GOLD Classification Chronic diastolic congestive heart failure 11/06 Nbbwmto-Vabbu-Shlww disease 11/06/2024 Coronary artery disease invo lving cheesh-na coronary artery of cheesh-na heart without angina pectoris 10/17/2024 Well adult [...] as of this encounter (statuses as of 12/01/2024) Resolved Problems Problem Noted Date Diagnosed Date [...] as of this encounter (statuses as of 12/01/2024) Immunizations Name Administration Dates Next Due COVID-19 mRNA, LNP-s, No Pre serve, 2-Dose Series ([employer]) 10/21/2021,03/01/2021,02/07/2021 H1N1 2009 Influenza, IM 11/04/2009 Pneumococcal Conjugate Vacci ne, 20-valent ([id number]) 07/09/2023 Pneumococcal Polysaccharide PPV23 (Pneumovax) 11/03/2015,02/09/2006 Seasonal [...] [address] [place] [phone] [address] [facility] [address] [facility] [place] [address] 01/29/2025 9:30 AM EDT Imaging Radiology [facility] [facility] [address] [facility] [place] [phone] 06/04/2025 9:30 AM EDT Office Visit Cardiology, [facility] [address] [facility] [address] Sweta Loving, SENIOR CONSTRUCTION MANAGER [address] [facility] [place] [phone] 07/09/2025 10:00 AM EDT Office Visit Pulmonary Medicine, [facility] [address] [facility] [place] [address] Vishal Wallace MD [address] [facility] [address] Scheduled Procedures Name Priority Associated Diagnoses Date/Ti [...] 04/19/2024 DISCUSS TOBACCO CESSATION (REFER TO SMARTSET #3122) 07/19/2025 07/19/2024, 10/16/2022 Diabetic Eye Exam 09/22/2025 [...] this encounter Medical Devices Implanted Type Area Shellfish Dredge Operator Device Identifier Shelf Expiration Date Model / Serial / Lot Suture [place] Dbl Load 4.75mm - [id number] Implanted:Qty: 1 on 12/01/2019 by Judith Condon, DO at OR [facility] Right: Shoulder [employer] 07/17/2021 AR-2324BCT -2 / / [id number] Suture [place] Dbl Load 5.5mm - [id number] Implanted:Qty: 1 on 12/01/2019 by Judith Condon DO at OR [facility] Right: Shoulder [employer] 09/16/2021 AR-2323BCT -2 / / [id number] documented as of this encounter Advance Directives [...] Advance Directives occurred with: Patient Care Teams Human Performance Technologist Relationship Specialty Start Date End Date Velasquez Valencia MD PCP - General Family Medicine 09/09/22 documented as of this encounter
--- OUTSIDE RECORDS SUMMARY | 2024-12-22 12:50 | External Medical Summary | Summary of Care ---
Author Name Unknown Organization [facility] Address [address] [facility] [place] [address] Phone [phone] Care Team Providers Care Heater Engineer Helper Name Role Phone Velasquez Valencia MD Primary Care Provider +1- [phone] Reason for Visit * Reason Onset Date Comments Nurse Documentation 12/05/2024 Encounter Details Date Type Department Care Team (Late st Contact Info) Description [facility]/05[facility]24 [facility] [address] [facility] [place] [phone] Velasquez Valencia MD [address] [facility] [place] [address] Nurse Documentation Allergies Active Allergy Reactions Criticality Noted Date Comments Pioglitazone 07/19/2024 Cefaclor Unknown 07/26/2018 As child Empagliflozin Other (Please comment) 05/16/2021 DKA with hospitalization Nsaids High 04/19/2019 Gastric problems Other Reaction(s): gastroparesis, kidney problems, use with caution : hx esophagus damage documented as of this encounter (statuses as of 12/05/2024) Medications Ondansetron HCl 4 MG Oral Tablet [...] 12:51 PM EST 4 Active Omnipod 5 [id number] Pods Gen 5Indications:Typ e 2 diabetes mellitus [...] 7.0% (HCC) Take 1 Tablet by mouth daily with [...] 2 times a day. 180 Capsule 3 Active documented as of this encounter (statuses as of 12/05/2024) Active Problems Problem Noted Date Diagnosed Date COPD, group B, by GOLD 2017 classification 11/27 Overview: Per COPD GOLD Classification Chronic diastolic congestive heart failure 11/06 Ohinffy-Vkcks-Ynnly disease 11/06/2024 Coronary artery disease invo lving [place] coronary artery of [place] heart without angina pectoris 10/17/2024 Well adult [...] as of this encounter (statuses as of 12/05/2024) Resolved Problems Problem Noted Date Diagnosed Date [...] Obesity protocol Chronic respiratory failure with hypercapnia 2 11/06/2024 Precordial pain 11/30/2021 05/24/2024 Fracture of [...] as of this encounter (statuses as of 12/05/2024) Immunizations Name Administration Dates Next Due COVID-19 mRNA, LNP-s, No Pre serve, 2-Dose Series (LinguaSys) 10/21/2021,03/01/2021,02/07/2021 H1N1 2009 Influenza, IM 11/04/2009 Pneumococcal Conjugate Vacci ne, 20-valent ([id number]) 07/09/2023 Pneumococcal Polysaccharide PPV23 (Pneumovax) 11/03/2015,02/09/2006 Seasonal [...] Encounter - Emily Wang MED ASSIST - 12/05/2024 11:34 AM EST Received Fax for BFPROVIDERS: Dr. Velasquez Valencia PT PLAN OF CARE/EVALUATION received from [facility] and FAXED documented in this encounter Plan of Treatment Upcoming Encounters Date Type Department Care Team (Late st Contact Info) Description 12/29/2024 2:50 PM EDT [address] [address] [facility] [address] [facility] [address] 01/29/2025 9:30 AM EDT Imaging [facility] [address] [facility] [place] [phone] 06/04/2025 9:30 AM EDT Office Visit Cardiology, [facility] 132 [place] [address] Sweta Loving CRNP [address] [facility] [place] [address] 07/09/2025 10:00 AM EDT Office Visit Pulmonary Medicine, [facility] 132 [place] [address] Vishal Wallace MD [address] [place] [address] Scheduled Procedures Name Priority Associated Diagnoses Date/Ti me COLONOSCOPY FLEXIBLE PROXIMA L DIAGNOSTIC Recall Screening for colon cancer Health Maintenance Due Date Last Done Comments HIV Screening 1988 Hepatitis C Screening 1991 Hepatitis B Vaccine (1 of 3 - 19+ 3-dose series) 1992 Cologuard 2018 Fecal Occult Blood Test 2018 Sigmoidoscopy 2018 Zoster Vaccines (1 of 2) 2023 COVID-19 Vaccine (4 - 2023- season) 2024 10/21/2021, 03/01/2021, 02/07/2021 Diabetic Foot [...] this encounter Medical Devices Implanted Type Area Wired Music Operator Device Identifier Shelf Expiration Date Model / Serial / Lot Suture [place] Dbl Load 4.75mm - [id number] Implanted:Qty: 1 on 12/01/2019 by Judith Condon DO at OR [facility] Right: Shoulder [employer] 07/17/2021 AR-2324BCT -2 / / [id number] Suture [place] Dbl Load 5.5mm - [id number] Implanted:Qty: 1 on 12/01/2019 by Judith Condon DO at OR [facility] Right: Shoulder [employer] 09/16/2021 AR-2323BCT -2 / / [id number] documented as of this encounter Advance Directives [...] Advance Directives occurred with: Patient Care Teams Heater Engineer Helper Relationship Specialty Start Date End Date Velasquez Valencia MD PCP - General Family Medicine 09/09/22 documented as of this encounter
--- OUTSIDE RECORDS SUMMARY | 2024-12-22 12:51 | External Medical Summary | Summary of Care ---
Author Name Unknown Organization [facility] Address [address] [facility] [place] [address] Phone [phone] Care Team Providers Care Chef German Name Role Phone Velasquez Valencia MD Primary Care Provider +1- [phone] Encounter Details Date Type Department Care Team (Late st Contact Info) Description 11/29/2024 Population Health External Data Unspecified Department Allergies Active Allergy Reactions Criticality Noted Date Comments Pioglitazone 07/19/2024 Cefaclor Unknown 07/26/2018 As child Empagliflozin Other (Please comment) 05/16/2021 DKA with hospitalization Nsaids High 04/19/2019 Gastric problems Other Reaction(s): gastroparesis, kidney problems, use with caution : hx esophagus damage documented as of this encounter (statuses as of 11/29/2024) Medications Ondansetron HCl 4 MG Oral Tablet [...] 4 10/13/2024 12:51 PM EST 4 Active Gabapentin 300 MG Oral Capsule (Neurontin) Take 1 Capsule by mouth 2 times a day. Active Omnipod 5 [id number] Pods Gen 5Indications:Typ e 2 diabetes mellitus [...] [facility]) Take 1 Tablet by mouth daily with dinner. 90 Tablet 1 5 Active amLODIPine Besylate 5 MG Oral Tablet (Norvasc) Take 1 Tablet by mouth in the morning. Active Pioglitazone HCl 45 MG Oral Tablet (Actos) Take 1 Tablet by mouth in the morning. Active documented as of this encounter (statuses as of 11/29/2024) Active Problems Problem Noted Date Diagnosed Date COPD, group B, by GOLD 2017 classification 11/27 Overview: Per COPD GOLD Classification Chronic diastolic congestive heart failure 11/06 Odnnmbe-Nagtu-Vqvxv disease 11/06/2024 Coronary artery disease invo lving [place] coronary artery of [place] heart without angina pectoris 10/17/2024 Well adult [...] as of this encounter (statuses as of 11/29/2024) Resolved Problems Problem Noted Date Diagnosed Date [...] as of this encounter (statuses as of 11/29/2024) Immunizations Name Administration Dates Next Due COVID-19 mRNA, LNP-s, No Pre serve, 2-Dose Series (Voya.ge) 10/21/2021,03/01/2021,02/07/2021 H1N1 2009 Influenza, IM 11/04/2009 Pneumococcal Conjugate Vacci ne, 20-valent ([id number]) 07/09/2023 Pneumococcal Polysaccharide PPV23 (Pneumovax) 11/03/2015,02/09/2006 Seasonal [...] 04/10/2024 9:27 PM EDAlicia Diaz RN * Are you blind or do [...] Pharmacy, [address] [place] [phone] [facility] [address] [facility] [place] [address] 01/29/2025 9:30 AM EDT Imaging Rad[facility] 132 [facility] [place] [phone] 06/04/2025 9:30 AM EDT Office Visit Cardiology, [facility] 132 [facility] [place] [address] Sweta Loving CRNP 400 [facility] [place] [phone] 07/09/2025 10:00 AM EDT Office Visit Pulmonary Medicine, [facility] 132 [facility] [place] [address] Vishal Wallace MD [address] [facility] [id number] Scheduled Procedures Name Priority Associated Diagnoses Date/Ti [...] 04/19/2024 DISCUSS TOBACCO CESSATION (REFER TO SMARTSET #8801) 07/19/2025 07/19/2024, 10/16/2022 Diabetic Eye Exam 09/22/2025 [...] this encounter Medical Devices Implanted Type Area Tooth Grinder Device Identifier Shelf Expiration Date Model / Serial / Lot Suture [place] Dbl Load 4.75mm - [id number] Implanted:Qty: 1 on 12/01/2019 by Judith Condon DO at OR [facility] Right: Shoulder [employer] 07/17/2021 AR-2324BCT -2 / / [id number] Suture [place] Dbl Load 5.5mm - [id number] Implanted:Qty: 1 on 12/01/2019 by Judith Condon DO at [facility] Right: Shoulder [employer] 09/16/2021 AR-2323BCT -2 / / [id number] documented as of this encounter Advance Directives [...] Advance Directives occurred with: Patient Care Teams Chef German Relationship Specialty Start Date End Date Velasquez Valencia MD PCP - General Family Medicine 09/09/22 documented as of this encounter
--- OUTSIDE RECORDS SUMMARY | 2024-12-22 12:51 | External Medical Summary | Summary of Care ---
Author Name Unknown Organization [facility] Address [address] [facility] [place] [address] Phone [phone] Care Team Providers Care Piler Name Role Phone Velasquez Valencia MD Primary Care Provider +1- [phone] Reason for Visit * Reason Comments Follow Up Fluid retention in l eg Encounter Details Date Type Department Care Team (Late st Contact Info) Description 11/27/2024 11:20 AM EST [facility] [address] [facility] [place] [address] FebruaryRed MD 226 [place] [address] HTN, goal below 140/90*; Type 2 diabetes mellitus with hemoglobin A1c goal of less than 7.0% ([facility]); Hx of BKA, left (HCC); COPD, moderate ([facility]) Allergies Active Allergy Reactions Criticality Noted Date Comments Pioglitazone 07/19/2024 Cefaclor Unknown 07/26/2018 As child Empagliflozin Other (Please comment) 05/16/2021 DKA with hospitalization Nsaids High 04/19/2019 Gastric problems Other Reaction(s): gastroparesis, kidney problems, use with caution : hx esophagus damage documented as of this encounter (statuses as of 11/27/2024) Medications Ondansetron HCl 4 MG Oral Tablet [...] 2 times a day. Active Omnipod 5 [id number] Pods Gen 5Indications:Typ e 2 diabetes mellitus with hemoglobin A1c goal of less than 7.0% (HCC) Use as directed. Change pod every 1.5 days 60 Each 3 11/09/2024 12:19 PM EST 5 Active Insulin Aspart 100 UNIT/ML Injection Solution (NovoLOG)Indicat ions:Type 2 diabetes mellitus with hemoglobin A1c goal of less than 7.0% ([facility]) Inject up to 140 units daily using [...] as of this encounter (statuses as of 11/27/2024) Active Problems Problem Noted Date Diagnosed Date Chronic diastolic congestive heart failure 11/06 Fjqmwkh-Csokf-Jcbqs disease 11/06/2024 Coronary artery disease invo lving [place] coronary artery of [place] heart without angina pectoris 10/17/2024 Well adult exam 08/06/2024 Overview (10/26/2024): 11/11 EGD WNL. EUS heterogenous pancreas changes. No masses. 08/10 EGD poor prep-repeat. Chest pain, non-cardiac 08/03/2024 Hx of BKA, left 04/27/2024 History of pancreatitis 04/12/2024 History of diabetic ulcer of foot 12/12/2023 Constipation 10/27/2023 COPD, moderate 05/25/2023 Obstructive sleep apnea 11/02/2022 Lumbar disc herniation [...] as of this encounter (statuses as of 11/27/2024) Resolved Problems Problem Noted Date Diagnosed Date [...] Cortical age-related cataract, right eye 09/08/2023 11/27/2024 Neuropathy 02/24/2023 05/24/2024 Restrictive lung disease secondary [...] as of this encounter (statuses as of 11/27/2024) Immunizations Name Administration Dates Next Due COVID-19 mRNA, LNP-s, No Pre serve, 2-Dose Series ([employer] system) 10/21/2021,03/01/2021,02/07/2021 H1N1 2009 Influenza, IM 11/04/2009 Pneumococcal Conjugate Vacci ne, 20-valent ([id number]) 07/09/2023 Pneumococcal Polysaccharide PPV23 (Pneumovax) 11/03/2015,02/09/2006 Seasonal [...] Sign Reading Time Taken Comments Blood Pressure 128/80 11/27/2024 11:26 AM EST Pulse 76 11/27/2024 11:26 AM EST Temperature 36.7 C (98.1 F) 11/27/2024 11:[address] Respiratory Rate 18 11/27/2024 11:26 AM EST Oxygen Saturation - - Inhaled Oxygen Concentration - - Weight 156 kg (344 lb) 11/27/2024 11:26 AM EST Height - - Body Mass Index 44.15 10/24/2024 9:02 AM EST documented in this encounter Functional [...] documented in this encounter Progress Notes * Red Ornelas MD - 11/27/2024 11:34 AM EST Images from the original note were not included. Subjective Bry Akhtar Jr. is a 49 year old male that presents for Follow Up (Fluid retention in leg ) History of Present Illness Bry Akhtar Jr. is a 49 year old male who presents with difficulty fitting his prosthetic leg due to possible fluid retention. He has difficulty fitting his prosthetic leg, which he attributes to possible fluid retention. His therapist suggested that fluid retention might be the cause. He is currently taking 20 mg of torsemide, but there is concern about whether this dosage is sufficient. His weight at home fluctuates between 310 and 320 pounds. His girlfriend noticed one of his hands appeared larger than the other, suggesting possible swelling. He experienced palpitations and a 'little bit of chest pain' while lying in bed last night, accompanied by the sensation of hearing his heartbeat loudly. No significant changes in his weight. He notes that his blood pressure is well-controlled. He experienced severe diarrhea following a recent hospitalization characterized by extremely loose,watery stools, with multiple accidents. The diarrhea has since improved, with only a couple of loose stools intermittently. He also experienced a leg cramp that required his girlfriend's assistance to relieve, which she attributed to dehydration. He is on multiple medications, including losartan, spironolactone, torsemide, metoprolol, and amlodipine. Objective Vitals: 11/27/24 1126 Temp: 98.1 F (36.7 C) Pulse: 76 Resp: 18 BP: 128/80 Physical Exam VITALS: BP- 128/80 CHEST: Lungs clear to auscultation. EXTREMITIES: Trace fluid on legs, no significant edema. Physical Exam Vitals reviewed. Constitutional: General: He is not in acute distress. Comments: Using wheelchair for mobility. Left BKA. Cardiovascular: Rate and Rhythm: Normal rate and regular rhythm. Heart sounds: No murmur heard. Pulmonary: Effort: Pulmonary effort is normal. No respiratory distress. Breath sounds: Normal breath sounds. No wheezing. Musculoskeletal: Right lower leg: No edema. Left lower leg: No edema. Neurological: General: No focal deficit present. Mental Status: He is alert. I have reviewed the following results: Results Assessment and Plan Assessment & Plan Diarrhea Improved from severe watery diarrhea to occasional loose stools. -Continue current management. Possible Fluid Retention Patient reports difficulty fitting prosthetic leg and believes he is retaining fluid. However, weight is stable and physical examination does not show significant edema. -Check lab work today to assess kidney function before considering any changes to diuretic therapy. Cardiovascular Health Patient reported hearing his heartbeat and experiencing some chest pain, but these symptoms have resolved. Blood pressure is well-controlled. -Continue current medications:Losartan, Spironolactone, Torsemide, Metoprolol, and Amlodipine. -Cardiology to review lab work. Diabetes Management Ongoing management with [facility]. -Next appointment in December. Follow-up Await lab results. No changes to current medications. Continue working on lowering A1c. HTN, goal below 140/90 (Primary) - BP at goal. No changes. Type 2 diabetes mellitus with hemoglobin A1c goal of less than 7.0% (HCC) Hx of BKA, left (HCC) COPD, moderate (HCC) - stable respiratory status. Wrap-Up Follow Up: Return if symptoms worsen or fail to improve. Text in this note was generated using an True Style documentation service. I discussed the use of a device to record and summarize our discussion today. All persons present during the encounter consented to its use. documented in this encounter Nursing Notes * Elaina Queen LPN - 11/27/2024 11:26 AM EST The patient has been properly identified by confirmation of name and date of . Chief Complaint Patient presents with Follow Up Fluid retention in leg documented in this encounter Plan of Treatment Upcoming Encounters Date Type Department Care Team (Late st Contact Info) Description 12/29/2024 2:50 PM EDT Office Visit Pharmacy, [facility] [facility] [facility] [place] [phone] [facility] [address] [facility] [place] [address] 01/29/2025 9:30 AM EDT Imaging Radiology [facility] 132 [facility] [place] [phone] 06/04/2025 9:30 AM EDT Office Visit Cardiology, [facility] 132 [facility] [place] [address] Sweta Loving CRNP 400 [facility] [place] [phone] 07/09/2025 10:00 AM EDT Office Visit Pulmonary Medicine, [facility] 132 [facility] [place] [address] Vishal Wallace MD [address] [place] [address] Scheduled Procedures Name Priority Associated Diagnoses Date/Ti [...] PAST YEAR FOR COPD 10/26/2025 10/26/2024 GFR 11/15/2025 11/27/2024, 10/19, 10/25/2024, Additional history exists DTap/Tdap [...] this encounter Medical Devices Implanted Type Area Detasseler Device Identifier Shelf Expiration Date Model / Serial / Lot Suture [place] Dbl Load 4.75mm - [id number] Implanted:Qty: 1 on 12/01/2019 by Judith Condon, at OR [facility] Right: Shoulder [employer] 07/17/2021 AR-2324BCT -2 / / [id number] Suture [place] Dbl Load 5.5mm - [id number] Implanted:Qty: 1 on 12/01/2019 by Judith Condon, at OR [facility] Right: Shoulder [employer] 09/16/2021 AR-2323BCT -2 / / [id number] documented as of this encounter Visit Diagnoses Diagnosis HTN, goal below 140/90- Primary Unspecified essential hypertension Type 2 diabetes mellitus with hemoglobin A1c goal of less than 7.0% (HCC) Hx of BKA, left (HCC) COPD, moderate (HCC) Chronic airway obstruction, not elsewhere classified documented in this encounter Advance Directives * [...] Advance Directives occurred with: Patient Care Teams Piler Relationship Specialty Start Date End Date Velasquez Valencia MD PCP - General Family Medicine 09/09/22 documented as of this encounter
--- OUTSIDE RECORDS SUMMARY | 2024-12-22 12:51 | External Medical Summary | Summary of Care ---
Author Name Unknown Organization [facility] Address [address] [facility] [address] Phone [phone] Care Team Providers Care Solar Photovoltaic Electrician Name Role Phone Velasquez Valencia MD Primary Care Provider +1- [phone] Reason for Visit * Reason Onset Date Comments Test Results 11/30/2024 Encounter Details Date Type Department Care Team (Late st Contact Info) Description 11/30/2024 Telephone Cardiology, [facility] 132 [facility] [place] [address] Sweta Loving CRNP [address] [facility] [place] [address] Test Results Allergies Active Allergy Reactions Criticality Noted Date Comments Pioglitazone 07/19/2024 Cefaclor Unknown 07/26/2018 As child Empagliflozin Other (Please comment) 05/16/2021 DKA with hospitalization Nsaids High 04/19/2019 Gastric problems Other Reaction(s): gastroparesis, kidney problems, use with caution : hx esophagus damage documented as of this encounter (statuses as of 11/30/2024) Medications Ondansetron HCl 4 MG Oral Tablet [...] 12:51 PM EST 4 Active Omnipod 5 [id number] Pods Gen 5Indications:Typ e 2 diabetes mellitus [...] as of this encounter (statuses as of 11/30/2024) Active Problems Problem Noted Date Diagnosed Date COPD, group B, by GOLD 2017 classification 11/27 Overview: Per COPD GOLD Classification Chronic diastolic congestive heart failure 11/06 Exmctfq-Hmpsn-Fhqiz disease 11/06/2024 Coronary artery disease invo lving [place] coronary artery of [place] heart without angina pectoris 10/17/2024 Well adult [...] as of this encounter (statuses as of 11/30/2024) Resolved Problems Problem Noted Date Diagnosed Date [...] as of this encounter (statuses as of 11/30/2024) Immunizations Name Administration Dates Next Due COVID-19 mRNA, LNP-s, No Pre serve, 2-Dose Series (dermSearch) 10/21/2021,03/01/2021,02/07/2021 H1N1 2009 Influenza, IM 11/04/2009 Pneumococcal Conjugate Vacci ne, 20-valent ([id number]) 07/09/2023 Pneumococcal Polysaccharide PPV23 (Pneumovax) 11/03/2015,02/09/2006 Seasonal [...] of Assessment Author Yes 04/10/2024 9:27 PM lAicia Lazaro RN * Do you have difficulty [...] encounter Miscellaneous Notes * Telephone Encounter - Ozzy Ferrell LPN - 11/30/2024 1:12 PM EST Sent patient a GranData message to make aware. ----- Message from Sweta Loving sent at 11/30/2024 12:53 PM EST ----- Kidney function normalized on recent labs. No changes necessary at this time. documented in this encounter Plan of Treatment Upcoming Encounters Date Type Department Care Team (Late st Contact Info) Description 12/29/2024 2:50 PM EDT Office Visit Pharmacy, [facility] 226 [place] [phone] [facility] [address] [place] [address] 01/29/2025 9:30 AM EDT Imaging Radiology [facility] 132 [facility] [place] [phone] 06/04/2025 9:30 AM EDT Office Visit Cardiology, [address] [place] [address] Sweta Loving CRNP 400 [facility] [place] [address] 07/09/2025 10:00 AM EDT Office Visit Pulmonary Medicine, [address] [place] [address] Vishal Wallace MD [address] [facility] [place] [address] Scheduled Procedures Name Priority Associated Diagnoses Date/Ti [...] this encounter Medical Devices Implanted Type Area Torch Straightener Device Identifier Shelf Expiration Date Model / Serial / Lot Suture [place] Dbl Load 4.75mm - [id number] Implanted:Qty: 1 on 12/01/2019 by Judith Condon, at OR [facility] Right: Shoulder [employer] 07/17/2021 AR-2324BCT -2 / / [id number] Suture [place] Dbl Load 5.5mm - [id number] Implanted:Qty: 1 on 12/01/2019 by Judith Condon DO at OR [facility] Right: Shoulder [employer] 09/16/2021 AR-2323BCT -2 / / [id number] documented as of this encounter Advance Directives [...] Advance Directives occurred with: Patient Care Teams Solar Photovoltaic Electrician Relationship Specialty Start Date End Date Velasquez Valencia MD PCP - General Family Medicine 09/09/22 documented as of this encounter
--- OUTSIDE RECORDS SUMMARY | 2024-12-22 12:51 | External Medical Summary | Summary of Care ---
Author Name Unknown Organization [facility] Address [address] [facility] [place] [address] Phone [phone] Care Team Providers Care Poly Packer And Heat Sealer Name Role Phone Velasquez Valencia MD Primary Care Provider +1- [phone] Encounter Details Date Type Department Care Team (Late st Contact Info) Description 11/30/2024 Population Health External Data Unspecified Department Allergies [...] 12:51 PM EST 4 Active Omnipod 5 [id number] Pods Gen 5Indications:Typ e 2 diabetes mellitus [...] [facility]) Take 1 Tablet by mouth daily [...] Classification Chronic diastolic congestive heart failure 11/06 Ebsxkao-Kfebi-Cuxrp disease 11/06/2024 Coronary artery disease invo lving [place] coronary artery of [place] heart without angina pectoris 10/17/2024 Well adult [...] mRNA, LNP-s, No Pre serve, 2-Dose Series (Evergram) 10/21/2021,03/01/2021,02/07/2021 H1N1 2009 Influenza, IM 11/04/2009 Pneumococcal Conjugate Vacci ne, 20-valent (Oatqnsk19) 07/09/2023 Pneumococcal Polysaccharide PPV23 (Pneumovax) 11/03/2015,02/09/2006 Seasonal [...] [address] [place] [address] [facility]ad [facility] [address] [facility] [place] [address] 01/29/2025 9:30 AM EDT Imaging Radiology [facility] 1st [facility] [address] [facility] [place] [phone] 06/04/2025 9:30 AM EDT Office Visit Cardiology, [facility] [address] [facility] [place] [address] Sweta Loving, SUPERVISOR SHEET MANUFACTURING [address] [facility] [place] [phone] 07/09/2025 10:00 AM EDT Office Visit Pulmonary Medicine, [facility] 132 [facility] [place] [address] Vihsal Wallace [facility] [address] [facility] [address] Scheduled Procedures Name Priority Associated Diagnoses Date/Ti [...] 04/19/2024 DISCUSS TOBACCO CESSATION (REFER TO SMARTSET #3834) 07/19/2025 07/19/2024, 10/16/2022 Diabetic Eye Exam 09/22/2025 [...] encounter Medical Devices Implanted Type Area Rehab Tech Device Identifier Shelf Expiration Date Model / Serial / Lot Suture [place] Dbl Load 4.75mm - [id number] Implanted:Qty: 1 on 12/01/2019 by Judith Condon, DO at OR [facility] Right: Shoulder [employer] 07/17/2021 AR-2324BCT -2 / / [id number] Suture [place] Dbl Load 5.5mm - [id number] Implanted:Qty: 1 on 12/01/2019 by Judith Condon DO at OR [facility] Right: Shoulder [employer] 09/16/2021 AR-2323BCT -2 / / [id number] documented as of this encounter Advance Directives [...] Advance Directives occurred with: Patient Care Teams Poly Packer And Heat Sealer Relationship Specialty Start Date End Date Velasquez Valencia MD PCP - General Family Medicine 09/09/22 documented as of this encounter
--- OUTSIDE RECORDS SUMMARY | 2024-12-22 12:51 | External Medical Summary | Summary of Care ---
Author Name Unknown Organization [facility] Address [address] [facility] [place] [address] Phone [phone] Care Team Providers Care Embossing Tool Setter Name Role Phone Velasquez Valencia MD Primary Care Provider +1- [phone] Reason for Visit * Reason Comments eRx-Medication Refill Encounter Details Date Type Department Care Team (Late st Contact Info) Description 11/28/2024 [facility] [address] [facility] [place] [address] February, Lucina Rader MD [address] [place] [address] Neuropathy* Allergies Active Allergy Reactions Criticality Noted Date [...] 12:51 PM EST 4 Active Omnipod 5 [id number] Pods Gen 5Indications:Typ e 2 diabetes mellitus [...] times a day. 180 Capsule 3 Active Gabapentin 300 MG Oral Capsule (Neurontin) Take 1 Capsule by mouth 2 times a day. 11/29/19 25 Discontinu ed(Refill) documented as of this encounter (statuses as of 11/30/2024) Active Problems Problem Noted Date Diagnosed Date COPD, group B, by GOLD 2017 classification 11/27 Overview: Per COPD GOLD Classification Chronic diastolic congestive heart failure 11/06 Jzbqcxb-Nfvxz-Tncnu disease 11/06/2024 Coronary artery disease invo lving [place] coronary artery of [place] heart without angina pectoris 10/17/2024 Well adult [...] mRNA, LNP-s, No Pre serve, 2-Dose Series (ZeeWhere) 10/21/2021,03/01/2021,02/07/2021 H1N1 2009 Influenza, IM 11/04/2009 Pneumococcal Conjugate Vacci ne, 20-valent (Lkeuhua96) 07/09/2023 Pneumococcal Polysaccharide PPV23 (Pneumovax) 11/03/2015,02/09/2006 Seasonal [...] of Assessment Author No 04/10/2024 9:27 PM Tessa Lazaro RN * Do you have serious [...] encounter Miscellaneous Notes * Telephone Encounter - Lucina Patton MD - 11/29/2024 3:21 PM ESTSigned Prescriptions: Disp Refills Gabapentin 300 MG Oral Capsule (Neurontin) 180 Ca*3 Sig: Take 1 Capsule by mouth 2 times a day.Authorizing Provider: LUCINA PATTONRefused Prescriptions: Disp Refills Gabapentin 100 MG Oral Capsule (Neurontin) 120 Ca*0 Sig: TAKE 2 CAPSULES BY MOUTH EVERY 12 HOURSRefused By: LUCINA PATTON for Refusal: Dose needs clarification--------- * Telephone Encounter - Lucina Patton MD - 11/29/2024 3:20 PM EST Confirmed with patient by phone that he is taking gabapentin 300 mg twice daily. Rx sent to [facility]. Lucina Patton MD * Telephone Encounter - Radha Fair LPN - 11/28/2024 3:28 PM ESTPending Prescriptions: Disp Refills Gabapentin 100 MG Oral Capsule [Pharmacy M*120 Ca*0 Sig: TAKE 2 CAPSULES BY MOUTH EVERY 12 HOURS * Telephone Encounter - Ashlee Teran - 11/28/2024 2:10 PM ESTPending Prescriptions: Disp Refills Gabapentin 100 MG Oral Capsule [Pharmacy M*120 Ca*0 Sig: TAKE 2CAPSULES BY MOUTH EVERY 12 HOURS documented in this encounter Plan of Treatment Upcoming Encounters Date Type Department Care Team (Late st Contact Info) Description 12/29/2024 2:50 PM EDT [facility] [address] [place] [address] Sharad [facility] [address] [place] [address] 01/29/2025 9:30 AM EDT Imaging Radiology [facility]st [facility] 132 [facility] [place] [address] 06/04/2025 9:30 AM EDT Office Visit Cardiology, [facility] 132 [place] [address] Sweta Loving CRNP 400 [facility] [place] [phone] 07/09/2025 10:00 AM EDT Office Visit Pulmonary Medicine, [facility] [address] [facility] [address] Vishal Wallace MD [address] [facility] [place] [phone] Scheduled Procedures Name Priority Associated Diagnoses Date/Ti [...] 11/27/2019, Additional history exists HbA1c 11/09/2024 05/09/2024, 2 [...] this encounter Medical Devices Implanted Type Area Cuffing Machine Operator Device Identifier Shelf Expiration Date Model / Serial / Lot Suture [place] Dbl Load 4.75mm - [id number] Implanted:Qty: 1 on 12/01/2019 by Judith Condon DO at OR [facility] Right: Shoulder [employer] 07/17/2021 AR-2324BCT -2 / / [id number] Suture [place] Dbl Load 5.5mm - [id number] Implanted:Qty: 1 on 12/01/2019 [facility]: Shoulder [employer] 09/16/2021 AR-2323BCT -2 / / [id number] documented as of this encounter Visit Diagnoses Diagnosis Neuropathy- Primary Mononeuritis of unspecified site documented in this [...] Advance Directives occurred with: Patient Care Teams Embossing Tool Setter Relationship Specialty Start Date End Date Velasquez Valencia MD PCP - General Family Medicine 09/09/22 documented as of this encounter
--- OUTSIDE RECORDS SUMMARY | 2024-12-22 12:51 | External Medical Summary | Summary of Care ---
Author Name Unknown Organization [facility] Address [address] [facility] [place] [address] Phone [phone] Care Team Providers Care Driver Messenger Name Role Phone Velasquez Valencia MD Primary Care Provider +1- [phone] Encounter Details Date Type Department Care Team (Late st Contact Info) Description 11/28/2024 Population Health External Data Unspecified Department Allergies Active Allergy Reactions Criticality Noted Date Comments Pioglitazone 07/19/2024 Cefaclor Unknown 07/26/2018 As child Empagliflozin Other (Please comment) 05/16/2021 DKA with hospitalization Nsaids High 04/19/2019 Gastric problems Other Reaction(s): gastroparesis, kidney problems, use with caution : hx esophagus damage documented as of this encounter (statuses as of 11/28/2024) Medications Ondansetron HCl 4 MG Oral Tablet [...] 2 times a day. Active Omnipod 5 CnlA2I2 Pods Gen 5Indications:Typ e 2 diabetes mellitus [...] [facility]) Take 1 Tablet by mouth daily with dinner. 90 Tablet 1 5 Active amLODIPine Besylate 5 MG Oral Tablet (Norvasc) Take 1 Tablet by mouth in the morning. Active Pioglitazone HCl 45 MG Oral Tablet (Actos) Take 1 Tablet by mouth in the morning. Active documented as of this encounter (statuses as of 11/28/2024) Active Problems Problem Noted Date Diagnosed Date Chronic diastolic congestive heart failure 11/06 Zcgtmja-Ziudy-Rdimw disease 11/06/2024 Coronary artery disease invo lving [place] coronary artery of [place] heart without angina pectoris 10/17/2024 Well adult [...] as of this encounter (statuses as of 11/28/2024) Resolved Problems Problem Noted Date Diagnosed Date [...] as of this encounter (statuses as of 11/28/2024) Immunizations Name Administration Dates Next Due COVID-19 mRNA, LNP-s, No Pre serve, 2-Dose Series (ProPlan) 10/21/2021,03/01/2021,02/07/2021 H1N1 2009 Influenza, IM 11/04/2009 Pneumococcal Conjugate Vacci ne, 20-valent (Ptryveh94) 07/09/2023 Pneumococcal Polysaccharide PPV23 (Pneumovax) 11/03/2015,02/09/2006 Seasonal [...] No 08/15/2024 Does the household have a nor-lea general [...] PM EDT Office Visit Pharmacy, Sharad Velez [address] [place] [address] [facility] [place] [facility] [address] [place] [address] 01/29/2025 9:30 AM EDT Imaging Radiology [facility] 1st [facility] [address] [place] [address] 06/04/2025 9:30 AM EDT Office Visit Cardiology, [facility] 132 [facility] [place] [address] Sweta Loving CRNP [address] [place] [address] 07/09/2025 10:00 AM EDT Office Visit Pulmonary Medicine, [facility] 132 [facility] [place] [address] Vishal Wallace MD [address] [phone] Scheduled Procedures Name Priority Associated Diagnoses Date/Ti [...] 04/19/2024 DISCUSS TOBACCO CESSATION (REFER TO SMARTSET #2284) 07/19/2025 07/19/2024, 10/16/2022 Diabetic Eye Exam 09/22/2025 [...] this encounter Medical Devices Implanted Type Area Drafter Detail Device Identifier Shelf Expiration Date Model / Serial / Lot Suture [place] Dbl Load 4.75mm - [id number] Implanted:Qty: 1 on 12/01/2019 by Judith Condon DO at OR [facility] Right: Shoulder [employer] 07/17/2021 AR-2324BCT -2 / / [id number] Suture [place] Dbl Load 5.5mm - [id number] Implanted:Qty: 1 on 12/01/2019 by Judith Condon DO at OR [facility] Right: Shoulder [employer] 09/16/2021 AR-2323BCT -2 / / [id number] documented as of this encounter Advance Directives [...] Advance Directives occurred with: Patient Care Teams Driver Messenger Relationship Specialty Start Date End Date Velasquez Valencia MD PCP - General Family Medicine 09/09/22 documented as of this encounter
--- OUTSIDE RECORDS SUMMARY | 2024-12-22 12:52 | External Medical Summary | Summary of Care ---
Author Name Unknown Organization [facility] Address [address] [facility] [place] [address] Phone [phone] Care Team Providers Care Divemaster Name Role Phone Tati Polo MD Primary Care Provider +1- [phone] Reason for Visit * Reason Onset Date Comments Medication Refill 11/21/2024 Encounter Details Date Type Department Care Team (Late st Contact Info) Description 11/21/2024 Refill [facility] [address] [place] [address] Tati Polo MD [address] [place] [address] Allergies Active Allergy Reactions Criticality Noted Date Comments Pioglitazone 07/19/2024 Cefaclor Unknown 07/26/2018 As child Empagliflozin Other (Please comment) 05/16/2021 DKA with hospitalization Nsaids High 04/19/2019 Gastric problems Other Reaction(s): gastroparesis, kidney problems, use with caution : hx esophagus damage documented as of this encounter (statuses as of 11/22/2024) Medications Ondansetron HCl 4 MG Oral Tablet [...] 2 times a day. Active Omnipod 5 WjfJ7H7 Pods Gen 5Indications:Typ e 2 diabetes mellitus with hemoglobin A1c goal of less than 7.0% ([facility]) Use as directed. Change pod every 1.5 days 60 Each 3 11/09/2024 12:19 PM EST 5 Active Insulin Aspart 100 UNIT/ML Injection Solution (NovoLOG)Indicat ions:Type 2 diabetes mellitus with hemoglobin A1c goal of less than 7.0% ([facility]) Inject up to 140 units daily using Omnipod 5 140 mL 4 11/07/2024 11:26 AM EST 5 Active Saccharomyces boulardii 250 MG Oral Capsule (Florastor)Indic ations:Diarrhea, unspecified type Take 1 Capsule by mouth in the morning and 1 Capsule before bedtime. 30 Capsule 5 Active Metoprolol Succinate ER 100 MG Oral Tablet Extended Release 24 Hour (toPROL XL) Take 1 Tablet by mouth in the morning and 1 Tablet before bedtime. 4 Active Metoprolol Succinate ER 25 MG Oral Tablet Extended Release 24 Hour (toPROL XL) Take 1 Tablet by mouth in the morning and 1 Tablet before bedtime. 4 Active Torsemide 20 MG Oral Tablet (Demadex) Take 1 Tablet by mouth in the morning. 5 Active Spironolactone 25 MG Oral Tablet (Aldactone)Indic ations:HTN, goal below 140/90 Take 1 Tablet by mouth in the morning. 90 Tablet 3 5 Active Atorvastatin Calcium 20 MG Oral Tablet (Lipitor) Take 1 Tablet by mouth at bedtime. 90 Tablet 3 5 Active Atorvastatin Calcium 20 MG Oral Tablet (Lipitor) Take 1 Tablet by mouth at bedtime. 11/21/19 25 Discontinu ed(Refill) Terazosin HCl 1 MG Oral Capsule (Hytrin) Take 1 Capsule by mouth at bedtime. 11/21/19 25 Discontinu ed(Refill) documented as of this encounter (statuses as of 11/22/2024) Active Problems Problem Noted Date Diagnosed Date Chronic diastolic congestive heart failure 11/06 Gnwhvdr-Tvwbe-Lnshf disease 11/06/2024 Coronary artery disease invo lving [place] coronary artery of [place] heart without angina pectoris 10/17/2024 Well adult [...] as of this encounter (statuses as of 11/22/2024) Resolved Problems Problem Noted Date Diagnosed Date [...] as of this encounter (statuses as of 11/22/2024) Immunizations Name Administration Dates Next Due COVID-19 mRNA, LNP-s, No Pre serve, 2-Dose Series (Pfizer) 10/21/2021,03/01/2021,02/07/2021 H1N1 2009 Influenza, IM 11/04/2009 Pneumococcal Conjugate Vacci ne, 20-valent (Csoccxw63) 07/09/2023 Pneumococcal Polysaccharide PPV23 (Pneumovax) 11/03/2015,02/09/2006 Seasonal [...] of Assessment Author No 04/10/2024 9:27 PM KRISTYT Alicia Esteban RN * Are you blind [...] Telephone Encounter - Tati Polo MD - 11/21/2024 5:33 PM ESTSigned Prescriptions: Disp Refills Atorvastatin Calcium 20 MG Oral Tablet (Li*90 Tab*3 Sig: Take 1Tablet by mouth at bedtime.Authorizing Provider: TATI POLO * Telephone Encounter - Nayla Valverde OSA - 11/21/2024 3:12 PM EST Did you pend patient's preferred pharmacy and medication before forwarding?yes Pharmacy: Pending Prescriptions: Disp Refills Atorvastatin Calcium 20 MG Oral Tablet (L*30 Tab*1 Sig: Take 1 Tablet by mouth at bedtime. Last Visit: 11/06/2024 (in office), Visit date not found (telemedicine) Next Visit: 11/23/2024 If no future appointments scheduled, and last appointment is greater than a year ago, please schedule patient for a follow-up appointment Last date the medication was ordered: 10/10/2024 Is this request for a controlled substance?No Urine Drug Screen:No results found. However, due to the size of the patient record, not all encounters were searched. Please check Results Review for a complete set of results. Patient Phone Numbers Labs: Lab Results Component Value Date/Time CREAT 1.3 (H) 11/15/2024 08:31 AM CREAT 1.57 (A) 07/29/2024 12:00 AM CREAT 0.8 11/25/2019 08:53 AM POTASSIUM 4.1 11/15/2024 08:31 AM POTASSIUM 4.8 07/29/2024 12:00 AM POTASSIUM 5.0 03/15/2024 05:48 PM POTASSIUM 4.5 11/25/2019 08:53 AM TSH 1.24 12/05/2021 12:12 PM TSH 0.698 06/30/2018 12:00 AM LDL 60 04/11/2024 03:45 AM LDL 48 12/13/2023 04:39 AM LDL 108 01/08/2011 02:50 PM ALT 29 08/02/2024 01:49 PM ALT 26 03/28/2024 10:47 AM ALT 37 11/25/2019 08:53 AM HGBA1C 8.6 (H) 05/09/2024 01:59 PM HGBA1C 10.0 (H) 03/07/2024 05:17 AM HGBA1C 9.2 (H) 09/16/2020 01:55 PM documented in this encounter Plan of Treatment Upcoming Encounters Date Type Department Care Team (Late st Contact Info) Description 11/23/2024 8:00 AM EST [facility] [address] [place] [address] Tati Polo MD [address] [facility] [place] [address] 11/23/2024 8:30 AM EST Office Visit Pharmacy, [facility] [address] [facility] [place] [phone] [place] [phone] [facility] [address] 01/29/2025 9:30 AM EDT Imaging Rad[facility] [address] [facility] [place] [phone] 06/04/2025 9:30 AM EDT Office Visit Cardiology, [facility] 132 [facility] [place] [address] Sweta Loving CRNP 400 [facility] [place] [address] 07/09/2025 10:00 AM EDT Office Visit Pulmonary Medicine, [facility] [address] [place] [address] Vishal Wallace MD [address] [facility] [address] Scheduled Procedures Name Priority Associated Diagnoses Date/Ti [...] YEAR FOR COPD 10/26/2025 10/26/2024 GFR 11/15/2025 11/15/2024, 0 05/2025, 08/02/2024, Additional history exists DTap/Tdap Vaccines (2 - [...] encounter Medical Devices Implanted Type Area Web Press Operator Device Identifier Shelf Expiration Date Model / Serial / Lot Suture [place] Dbl Load 4.75mm - [id number] Implanted:Qty: 1 on 12/01/2019 by Judith Condon DO at OR [facility] Right: Shoulder [employer] 07/17/2021 AR-2324BCT -2 / / [id number] Suture [place] Dbl Load 5.5mm - [id number] Implanted:Qty: 1 on 12/01/2019 by Judith Condon DO at OR [facility] Right: Shoulder [employer] 09/16/2021 AR-2323BCT -2 / / [id number] documented as of this encounter Advance Directives [...] Advance Directives occurred with: Patient Care Teams Divemaster Relationship Specialty Start Date End Date Tati Polo MD PCP - General Family Medicine 09/09/22 documented as of this encounter
--- OUTSIDE RECORDS SUMMARY | 2024-12-22 12:52 | External Medical Summary | Summary of Care ---
Author Name Unknown Organization [facility] Address [address] [facility] [address] Phone [phone] Care Team Providers Care Safety Counselor Name Role Phone Velasquez Valencia MD Primary Care Provider +1- [phone] Reason for Visit * Reason Onset Date Comments Update 11/20/2024 Encounter Details Date Type Department Care Team (Late st Contact Info) Description 11/20/2024 Telephone Cardiology, [facility] [address] [facility] [place] [address] Sweta Loving CRNP [facility] [place] [address] Update Allergies Active Allergy Reactions Criticality Noted Date Comments Pioglitazone 07/19/2024 Cefaclor Unknown 07/26/2018 As child Empagliflozin Other (Please comment) 05/16/2021 DKA with hospitalization Nsaids High 04/19/2019 Gastric problems Other Reaction(s): gastroparesis, kidney problems, use with caution : hx esophagus damage documented as of this encounter (statuses as of 11/21/2024) Medications Ondansetron HCl 4 MG Oral Tablet [...] 1 Tablet by mouth at bedtime. Active Famotidine 20 MG Oral Tablet (Pepcid) Take 1 Tablet by mouth at bedtime. Active Losartan Potassium 50 MG Oral Tablet (Cozaar) Take 1 Tablet by mouth in the morning and 1 Tablet before bedtime. Active Terazosin HCl 1 MG Oral Capsule (Hytrin) Take 1 Capsule by mouth at bedtime. Active GoodSense Arthritis Pain 1 % [...] 2 times a day. Active Omnipod 5 [id number] Pods Gen 5Indications:Typ e 2 diabetes mellitus [...] the morning. 90 Tablet 3 5 Active documented as of this encounter (statuses as of 11/21/2024) Active Problems Problem Noted Date Diagnosed Date Chronic diastolic congestive heart failure 11/06 Ljjcsvh-Aslyf-Vntwy disease 11/06/2024 Coronary artery disease invo lving [...] as of this encounter (statuses as of 11/21/2024) Resolved Problems Problem Noted Date Diagnosed Date [...] as of this encounter (statuses as of 11/21/2024) Immunizations Name Administration Dates Next Due COVID-19 mRNA, LNP-s, No Pre serve, 2-Dose Series (Pfizer) 10/21/2021,03/01/2021,02/07/2021 H1N1 2009 Influenza, IM 11/04/2009 Pneumococcal Conjugate Vacci ne, 20-valent ([id number]) 07/09/2023 Pneumococcal Polysaccharide PPV23 (Pneumovax) 11/03/2015,02/09/2006 Seasonal [...] encounter Miscellaneous Notes * Telephone Encounter - Sweta Loving CRNP - 11/20/2024 2:30 PM EST Noted. Will follow-up after repeat BMP. * Telephone Encounter - Teresita Graham LPN - 11/20/2024 10:16 AM EST Images from the original note were not included. Just a brief update from case mgt follow up Feeling pretty good Current taking Torsemide 20 mg daily Scale is showing weight is up but patient is feeling well No dyspnea, bloating, abdominal fullness, lower leg edema No longer diarrheal episodes that he had for the previous 2 weeks Stool studies were negative He is to get f/u BMP this week per direction of Cardiology from his recent visit on 11/15/24 RECOMMENDATION: Update from patient He is feeling well with no s/s HF noted Will plan to continue Torsemide 20 mg daily I will send updated message to Cardiology Patient will continue to weight daily and eating low sodium Discussed reporting any edema, dyspnea, abdominal bloating Scheduled to see PCP on 11/23 Patient will have f/u BMP done per Cardiology this week I will continue to follow weight transmissions documented in this encounter Plan of Treatment Upcoming Encounters Date Type Department Care Team (Late st Contact Info) Description 11/23/2024 8:00 AM EST [facility] [facility] [phone] Velasquez Valencia MD [address] [facility] [place] [address] 11/23/2024 8:30 AM EST [facility] [place] [facility] [phone] [facility]ad [facility] [address] [place], [place] [address] [address] 01/29/2025 9:30 AM EDT Imaging Radiology [facility]st [facility] [phone] 06/04/2025 9:30 AM EDT Office Visit Cardiology, [address] [place] [address] Sweta Loving, ASSOCIATE PROGRAMMER 400 [facility] [place] [id number] 07/09/2025 10:00 AM EDT Office Visit Pulmonary Medicine, [facility] [address] Vishal Wallace MD [address] [facility] [place] [phone] Scheduled Procedures Name Priority Associated Diagnoses Date/Ti [...] FOR COPD 10/26/2025 10/26/2024 GFR 11/15/2025 11/15/2024, 05/2025, 08/02/2024, Additional history exists DTap/Tdap Vaccines [...] this encounter Medical Devices Implanted Type Area Outside Dealer Sales Representative Device Identifier Shelf Expiration Date Model / Serial / Lot Suture [place] Dbl Load 4.75mm - [id number] Implanted:Qty: 1 on 12/01/2019 by Judith Condon, DO at OR [facility] Right: Shoulder [employer] 07/17/2021 AR-2324BCT -2 / / [id number] Suture [place]ignum Dbl Load 5.5mm - [id number] Implanted:Qty: 1 on 12/01/2019 by Judith Condon, DO at OR [facility] Right: Shoulder [employer] 09/16/2021 AR-2323BCT -2 / / [id number] documented as of this encounter Advance Directives [...] Advance Directives occurred with: Patient Care Teams Safety Counselor Relationship Specialty Start Date End Date Velasquez Valencia MD PCP - General Family Medicine 09/09/22 documented as of this encounter
--- OUTSIDE RECORDS SUMMARY | 2024-12-22 12:52 | External Medical Summary | Summary of Care ---
Author Name Unknown Organization [facility] Address [address] [facility] [place] [address] Phone [phone] Care Team Providers Care Charge Master Specialist Name Role Phone Velasquez Valencia MD Primary Care Provider +1- [phone] Reason for Visit * Reason Onset Date Comments Appointment 11/22/2024 Encounter Details Date Type Department Care Team (Late st Contact Info) Description 11/22/2024 [facility] [address] [facility] [place] [phone] Velasquez Valencia MD 226 [facility] [place] [address] Appointment Allergies Active Allergy Reactions Criticality Noted Date Comments Pioglitazone 07/19/2024 Cefaclor Unknown 07/26/2018 As child Empagliflozin Other (Please comment) 05/16/2021 DKA with hospitalization Nsaids High 04/19/2019 Gastric problems Other Reaction(s): gastroparesis, kidney problems, use with caution : hx esophagus damage documented as of this encounter (statuses as of 11/23/2024) Medications Ondansetron HCl 4 MG Oral Tablet [...] 2 times a day. Active Omnipod 5 [id number] Pods Gen 5Indications:Typ e 2 diabetes mellitus [...] at bedtime. 90 Tablet 3 5 Active documented as of this encounter (statuses as of 11/23/2024) Active Problems Problem Noted Date Diagnosed Date Chronic diastolic congestive heart failure 11/06 Oisjedg-Omijo-Jbjke disease 11/06/2024 Coronary artery disease invo lving [place] coronary artery of [place] heart without angina pectoris 10/17/2024 Well adult [...] as of this encounter (statuses as of 11/23/2024) Resolved Problems Problem Noted Date Diagnosed Date [...] as of this encounter (statuses as of 11/23/2024) Immunizations Name Administration Dates Next Due COVID-19 mRNA, LNP-s, No Pre serve, 2-Dose Series (Pfizer) 10/21/2021,03/01/2021,02/07/2021 H1N1 2009 Influenza, IM 11/04/2009 Pneumococcal Conjugate Vacci ne, 20-valent ([id number]) 07/09/2023 Pneumococcal Polysaccharide PPV23 (Pneumovax) 11/03/2015,02/09/2006 Seasonal [...] Telephone Encounter - Nely Randhawa OSA - 11/23/2024 10:04 AM EST Done. 11/23/2024 * Telephone Encounter - Elaina Suh OSA - 11/22/2024 5:55 PM EST Patient's girlfriend would like to reschedule the patient's appointment on 11/23/24 because of the weather. Patient's girlfriend states that the patient would only like to see for the appointment. Patient's girlfriend states that the patient would need an earlier appointment then what is available in February. Please advise. documented in this encounter Plan of Treatment Upcoming Encounters Date Type Department Care Team (Late st Contact Info) Description 11/27/2024 9:50 AM EST [facility] [place] [facility] [address] [facility] [place] [phone] [facility] [address] [facility] [address] 11/27/2024 11:20 AM EST [facility] [place] [facility] [address] [place] [phone] Red Ornelas MD 226 [place] [address] 01/29/2025 9:30 AM EDT Imaging Radiology [facility] 1st [facility] 132 [place] [phone] 06/04/2025 9:30 AM EDT Office Visit Cardiology, [facility] 132 [place] [address] Sweta Loving, FENDER REPAIRER [address] [place] [phone] 07/09/2025 10:00 AM EDT Office Visit Pulmonary Medicine, [facility] 132 [place] [address] Vishal Wallace MD [address] [place] [phone] Scheduled Procedures Name Priority Associated Diagnoses Date/Ti [...] or Tdap) 05/01/2028 05/01/2018 Colonoscopy 02/21/2029 02/22/2024, 0 04/2024, 04/15/2023, Additional history exists Colorectal Cancer [...] this encounter Medical Devices Implanted Type Area International Trade Analyst Device Identifier Shelf Expiration Date Model / Serial / Lot Suture [place] Dbl Load 4.75mm - [id number] Implanted:Qty: 1 on 12/01/2019 by Judith Condon, DO at OR [facility] Right: Shoulder [employer] 07/17/2021 AR-2324BCT -2 / / [id number] Suture [place] Dbl Load 5.5mm - [id number] Implanted:Qty: 1 on 12/01/2019 by Judith Condon, DO at OR [facility] Right: Shoulder [employer] 09/16/2021 AR-2323BCT -2 / / [id number] documented as of this encounter Advance Directives [...] Advance Directives occurred with: Patient Care Teams Charge Master Specialist Relationship Specialty Start Date End Date Velasquez Valencia MD PCP - General Family Medicine 09/09/22 documented as of this encounter
--- OUTSIDE RECORDS SUMMARY | 2024-12-22 12:52 | External Medical Summary ---
Author Name Unknown Address Unknown Organization K01:[facility] [place] - [address] [place] [address] Laboratory Report Ordering Provider Test Date Status FIDE CARNES 11/27/2024 08:51:47 Final Observation Date Value Abnormality Reference (Units ) Status BUN 11/27/2024 08:51:47 35 Above high normal 6-20 (mg/dL) Final Creatinine 11/27/2024 08:51:47 1.2 0.6-1.2 (mg/dL) Final Glomerular filtration rate/1.73 sq M.predicted [Volume Rate/Area] in Serum, Plasma or Blood by Creatinine-based formula (CKD-EPI) 11/27/2024 08:51:47 72 >=60 (mL/min) Final eGFR is calculated based on the CKD-EPI 2020 equation. Sodium 11/27/2024 08:51:47 139 135-146 (m mol/L) Final Potassium 11/27/2024 08:51:47 5.1 3.5-5.1 (m mol/L) Final Cl 11/27/2024 08:51:47 96 Below low normal 98- 107 (mmol/L) Final CO2 11/27/2024 08:51:47 32 22-32 (mmo l/L) Final Anion gap 11/27/2024 08:51:47 11 7-15 (mmol /L) Final Glucose 11/27/2024 08:51:47 385 Above high normal 70 -120 (mg/dL) Final Calcium 11/27/2024 08:51:47 9.6 8.4-10.2 ( mg/dL) Final Performing Location [facility] [place] - [address] [place] [address]
--- OUTSIDE RECORDS SUMMARY | 2024-12-22 12:52 | External Medical Summary | Summary of Care ---
Author Name Unknown Organization [facility] Address [address] [facility] [place] [address] Phone [phone] Care Team Providers Care Upholsterer Limousine And Hearse Name Role Phone Velasquez Valencia MD Primary Care Provider +1- [phone] Reason for Visit * Reason Comments Dosage Adjustment In Person (Anticoag Cl inic) Diabetes Follow-Up Insulin Pump Encounter Details Date Type Department Care Team (Late st Contact Info) Description 11/27/2024 9:50 AM EST Office Visit Pharmacy, [facility] [address] [place] [address] [place], [facility] [address] [place] [address] Type 2 diabetes mellitus with hemoglobin A1c goal of less than 7.0% ([facility])* Allergies Active Allergy Reactions Criticality [...] 2 times a day. Active Omnipod 5 [id number] Pods Gen 5Indications:Typ e 2 diabetes mellitus [...] with dinner. 90 Tablet 1 5 Active dexAMETHasone 0.5 MG/5ML Oral Solution (Decadron)Indica tions:Oral aphthous ulcer Take 10 mL by mouth in the morning and 10 mL at noon and 10 mL in the evening and 10 mL before bedtime. Do all this for 5 days. 200 mL 5 11/27/19 25 Discontinu ed(End of Procedure) documented as of this encounter (statuses as of 11/27/2024) Active Problems Problem Noted Date Diagnosed Date Chronic diastolic congestive heart failure 11/06 Zfdwapd-Iuedp-Dicim disease 11/06/2024 Coronary artery disease invo lving [place] coronary artery of [place] heart without angina pectoris 10/17/2024 Well adult [...] mRNA, LNP-s, No Pre serve, 2-Dose Series (Sense Platform) 10/21/2021,03/01/2021,02/07/2021 H1N1 2009 Influenza, IM 11/04/2009 Pneumococcal Conjugate Vacci ne, 20-valent ([id number]) 07/09/2023 Pneumococcal Polysaccharide PPV23 (Pneumovax) 11/03/2015,02/09/2006 Seasonal [...] this encounter Progress Notes * Gisel Butler, [facility] - 11/27/2024 9:48 AM EST Images from the original note were not included. Medication Therapy Disease Management [facility] - Diabetes Management Progress Note Bry Akhtar Jr., identified by name and date of , is a 49 year old male being seen for diabetes management/education. Patient presents for return diabetic visit. DIABETES: Current diabetic medications: Omnipod 5 Insulin Pump Insulin: Novolog U-100 Basal Rate: (when not in automated mode) 2.8 units/hour changed max basal rate to 5.5 u/hour Bolus: 70 g with any meal --> set up in custom foods; note: max bolus is 30 units Bolus Calculator: on and using ICR: 3.3 ISF: 10 (strengthened) Bolus Calculator: Target B Correct above: 150 Active Insulin Time: 2 hours (shortened) Medication Injection Site: Abdomen Lifestyle: Diet: unchanged; pt states that he is "trying" to decrease his food intake Glucose Review/SMBG: Readings obtained from patient device Hypoglycemia: Does your blood sugar go below 70 mg/dL? No Hyperglycemia symptoms present: none Recent Labs Units 05/09/24 1359 03/07/24 0517 01/14/24 1059 HEMOGLOBIN A1C - [facility] % 8.6* -- 10.2* HEMOGLOBIN, [id number] LAB % -- 10.0* -- Recent Labs Units 11/15/24 0831 10/25/24 0913 08/02/24 1349 ESTIMATED GLOMERULAR FILTRATION RATE - [facility] mL/min 68 >90 87 CREATININE - [facility] mg/dL 1.3* 1.0 1.0 HYPERTENSION: Patient on ACEi/ARB: yes BP Readings from Last 3 Encounters: 11/15/24 136/54 11/06/24 138/82 10/26/24 171/71 Blood pressure at goal: yes HYPERLIPIDEMIA: Recent Labs Units 04/11/24 0345 12/13/23 0439 01/05/23 1133 LDL CHOLESTEROL (CALCULATED) - [facility] mg/dL -- 48 126 LDL CHOLESTEROL (DIRECT MEASURE) - [facility] mg/dL 60 -- -- Does patient have clinical ASCVD? Yes, is patient LDL less than 55 mg/dL? No: recommend increasing atorvastatin. Address after more acute/urgent issues with BG are resolved. HEALTH MAINTENANCE REVIEW: Health Maintenance Due Topic Date Due HIV Screening Never done Hepatitis C Screening Never done Hepatitis B Vaccine (1 of 3 - 19+ 3-dose series) Never done Zoster Vaccines (1 of 2) Never done COVID-19 Vaccine (2023- season) 2024 Diabetic Foot Exam 07/09/2024 HbA1c 11/09/2024 Albumin/Creatinine Ratio 01/13/2025 ASSESSMENT & PLAN: ICD-10-CM 1. Type 2 diabetes mellitus with hemoglobin A1c goal of less than 7.0% (HCC) E11.9 Considerations: - Jardiance caused DKA - hx of acute pancreatitis 12/14/23 & 03/2024- avoiding GLPs and GIPs - metformin stopped on own by patient 07/2024 and he feels better off it Glycemic control is unstable and not at goal Patient agreeable to adjust medications as noted below. Basal settings continued -- patient spending nearly the whole time in automated mode ICR/fixed dose strengthened as glucose is rising postprandially. ISF strengthened as glucose is not correcting to goal range. Pt agreeable to restart metformin 1 tab daily to see if we can improve his insulin sensitivity. He is currently changing his pod every ~1.5 days. Patient to SMBG at least 4 times daily, before each meal and at bedtime. Patient aware to contact clinic if any hypoglycemia before next visit. Reviewed rule of 15s. Reviewed appropriate management of hyperglycemia as noted in pump start documentation. MEDICATION CHANGES: yes, see below; [facility] pharmacy[facility]) Diabetic Medications: START Metformin ER 500 mg once daily Omnipod 5 Insulin Pump Insulin: Novolog U-100 Basal Rate: 2.8 units/hour; max basal rate = 5.5 u/hour Bolus: 70 g with any meal --> set up in custom foods; note: max bolus is 30 units Bolus Calculator: on and using ICR: 3 (strengthened) ISF: 9 (strengthened) Bolus Calculator: Target B Correct above: 150 Active Insulin Time: 2 hours HEALTH MAINTENANCE INTERVENTIONS: Labs: Up to Date-- A1c completed at [facility] end of September Immunizations: due for shingrix Foot Exam: due Eye Exam: Up to Date Annual Wellness Visit: n/a FOLLOW UP: Return to clinic in 4 weeks 12/29/2024 I spent a total of 30-39 minutes (exact time 36 mins) on the date of service in preparation, delivery, and documentation of the care provided to Bry Akhtar Jr. excluding any time spent in the performance of separately billed services. Gisel Butler [facility] Clinical Pharmacist - Propeller Layout Worker Medication Therapy Management Clinic 11/27/2024, 9:48 AM documented in this encounter Plan of Treatment Upcoming Encounters Date Type Department Care Team (Late st Contact Info) Description 12/29/2024 2:50 PM EDT Office Visit Pharmacy, [address] [place] [phone] Sharad [facility] [address] [place] [address] 01/29/2025 9:30 AM EDT Imaging [facility] 132 [place] [phone] 06/04/2025 9:30 AM EDT Office Visit Cardiology, [address] [address] Sweta Loving CRNP 400 [facility] [place] [address] 07/09/2025 10:00 AM EDT Office Visit Pulmonary Medicine, [facility] 132 [place] [address] Vishal Wallace MD [address] [place] [phone] Scheduled Procedures Name Priority Associated Diagnoses Date/Ti [...] this encounter Medical Devices Implanted Type Area Academic Success Coordinator Device Identifier Shelf Expiration Date Model / Serial / Lot Suture [place] Dbl Load 4.75mm - [id number] Implanted:Qty: 1 on 12/01/2019 by Judith Condon, at OR [facility] Right: Shoulder [employer] 07/17/2021 AR-2324BCT -2 / / [id number] Suture [place] Dbl Load 5.5mm - [id number] Implanted:Qty: 1 on 12/01/2019 by Judith Condon, at OR [facility] Right: Shoulder [employer] 09/16/2021 AR-2323BCT -2 / / [id number] documented as of this encounter Visit Diagnoses Diagnosis Type 2 diabetes mellitus with hemoglobin A1c goal of less than 7.0% ([facility])- Primary documented in this encounter [...] Advance Directives occurred with: Patient Care Teams Upholsterer Limousine And Hearse Relationship Specialty Start Date End Date Velasquez Valencia MD PCP - General Family Medicine 09/09/22 documented as of this encounter
--- OUTSIDE RECORDS SUMMARY | 2024-12-22 12:52 | External Medical Summary | Summary of Care ---
Author Name Unknown Organization [facility] Address [address] [facility] [place] [address] Phone [phone] Care Team Providers Care Restorative Rehab Aide Name Role Phone Tati Polo MD Primary Care Provider +1- [phone] Reason for Visit * Reason Onset Date Comments Medication Refill 11/21/2024 Encounter Details Date Type Department Care Team (Late st Contact Info) Description 11/21/2024 Refill [facility] [address] [facility] [place] [address] Tati Polo MD 226 [place] [address] Allergies Active Allergy Reactions Criticality [...] 2 times a day. Active Omnipod 5 [id number] Pods Gen 5Indications:Typ e 2 diabetes mellitus with hemoglobin A1c goal of less than 7.0% ([facility]) Use as directed. Change pod every 1.5 days 60 Each 3 11/09/2024 12:19 PM EST 5 Active Insulin Aspart 100 UNIT/ML Injection Solution (NovoLOG)Indicat ions:Type 2 diabetes mellitus with hemoglobin A1c goal of less than 7.0% ([facility]) Inject up to 140 units daily using [...] at bedtime. 90 Capsule 3 5 Active Terazosin HCl 1 MG Oral Capsule (Hytrin) Take 1 Capsule by mouth at bedtime. 11/21/19 25 Discontinu ed(Refill) documented as of this encounter (statuses as of 11/22/2024) Active Problems Problem Noted Date Diagnosed Date Chronic diastolic congestive heart failure 11/06 Azsetgb-Pcaap-Neoka disease 11/06/2024 Coronary artery disease invo lving [place] coronary artery of [place] heart without angina pectoris 10/17/2024 Well adult [...] mRNA, LNP-s, No Pre serve, 2-Dose Series (Qoniac) 10/21/2021,03/01/2021,02/07/2021 H1N1 2009 Influenza, IM 11/04/2009 Pneumococcal Conjugate Vacci ne, 20-valent ([id number]) 07/09/2023 Pneumococcal Polysaccharide PPV23 (Pneumovax) 11/03/2015,02/09/2006 Seasonal [...] 11/21/2024 5:33 PM ESTSigned Prescriptions: Disp Refills Terazosin HCl 1 MG Oral Capsule (Hytrin) 90 Cap*3 Sig: Take 1 Capsule by mouth at bedtime.Authorizing Provider: TATI POLO * Telephone Encounter - Nayla Valverde OSA - 11/21/2024 3:02 PM EST Did you pend patient's preferred pharmacy and medication before forwarding?yes Pharmacy: [id number] [facility] Pending Prescriptions: Disp Refills Terazosin HCl 1 MG Oral Capsule (Hytrin) 30 Cap*1 Sig: Take 1 Capsule by mouth at bedtime. Last Visit: 11/06/2024 (in office), Visit date not found (telemedicine) Next Visit: 11/23/2024 If no future appointments scheduled, and last appointment is greater than a year ago, please schedule patient for a follow-up appointment Last date the medication was ordered: 10/13/2024 Is this request for a controlled substance?No [...] Description 11/23/2024 8:00 AM EST [facility] [address] [place] [address] Tati Polo MD 226 [facility] [place] [address] 11/23/2024 8:30 AM EST Office Visit Pharmacy, Sharad [facility] [place] [phone] [facility] [facility] [address] 01/29/2025 9:30 AM EDT Imaging [facility] [address] [facility] [place] [phone] 06/04/2025 9:30 AM EDT Office Visit Cardiology, [facility] 132 [facility] [place] [address] Sweta Loving CRNP 400 [facility] [place] [address] 07/09/2025 10:00 AM EDT Office Visit Pulmonary Medicine, [facility] [address] [facility] [place] [address] Vishal Wallace MD [address] [facility] [address] Scheduled Procedures Name Priority Associated Diagnoses Date/Ti [...] FOR COPD 10/26/2025 10/26/2024 GFR 11/15/2025 11/15/2024, 01/0 05/2025, 08/02/2024, Additional history exists DTap/Tdap Vaccines [...] encounter Medical Devices Implanted Type Area Manager Meat Device Identifier Shelf Expiration Date Model / Serial / Lot Suture [place] Dbl Load 4.75mm - [id number] Implanted:Qty: 1 on 12/01/2019 by Judith Condon DO at OR [facility] Right: Shoulder [employer] 07/17/2021 AR-2324BCT -2 / / [id number] Suture [place] Dbl Load 5.5mm - [id number] Implanted:Qty: 1 on 12/01/2019 by Judith Condon DO at OR [facility] Right: Shoulder [employer] 09/16/2021 AR-2323BCT -2 / / [id number] documented as of this encounter Advance Directives [...] Advance Directives occurred with: Patient Care Teams Restorative Rehab Aide Relationship Specialty Start Date End Date Tati Polo MD PCP - General Family Medicine 09/09/22 documented as of this encounter
--- OUTSIDE RECORDS SUMMARY | 2024-12-22 12:52 | External Medical Summary | Summary of Care ---
Author Name Unknown Organization [facility] Address [address] [facility] [address] Phone [phone] Care Team Providers Care Technical Recruiter Name Role Phone Tati Polo MD Primary Care Provider +- [phone] Encounter Details Date Type Department Care Team (Late st Contact Info) Description 11/21/2024 [facility] [address] [place] [address] Tati Polo MD 226 [facility] [place] [address] Allergies Active Allergy Reactions Criticality [...] 2 times a day. Active Omnipod 5 [id number] Pods Gen 5Indications:Typ e 2 diabetes mellitus with hemoglobin A1c goal of less than 7.0% ([facility]) Use as directed. Change pod every 1.5 days 60 Each 3 11/09/2024 12:19 PM EST 5 Active Insulin Aspart 100 UNIT/ML Injection Solution (NovoLOG)Indicat ions:Type 2 diabetes mellitus with hemoglobin A1c goal of less than 7.0% ([facility]) Inject up to 140 units daily using [...] morning and 1 Tablet before bedtime. 4 11/23/19 25 Discontinu ed(Refill) Metoprolol Succinate ER 25 MG Oral Tablet Extended Release 24 Hour (toPROL XL) Take 1 Tablet by mouth in the morning and 1 Tablet before bedtime. 4 11/23/19 25 Discontinu ed(Refill) documented as of this encounter (statuses as of 11/23/2024) Active Problems Problem Noted Date Diagnosed Date Chronic diastolic congestive heart failure 11/06 Dviuqqh-Yccqv-Fooco disease 11/06/2024 Coronary artery disease invo lving [place] coronary artery of [place] heart without angina pectoris 10/17/2024 Well adult [...] mRNA, LNP-s, No Pre serve, 2-Dose Series (BioMers) 10/21/2021,03/01/2021,02/07/2021 H1N1 2009 Influenza, IM 11/04/2009 Pneumococcal Conjugate Vacci ne, 20-valent ([id number]) 07/09/2023 Pneumococcal Polysaccharide PPV23 (Pneumovax) 11/03/2015,02/09/2006 Seasonal [...] Telephone Encounter - Tati Polo MD - 11/23/2024 3:52 PM ESTSigned Prescriptions: Disp Refills Metoprolol Succinate ER 100 MG Oral Tablet*180 Ta*3 Sig: Take 1 Tablet by mouth in the morning and 1 Tablet before bedtime.Authorizing Provider: TAIT POLO RMetoprolol Succinate ER 25 MG Oral Tablet *180 Ta*3 Sig: Take 1 Tablet by mouth in the morning and 1 Tablet before bedtime.Authorizing Provider: TATI POLO * Telephone Encounter - Tati Polo MD - 11/23/2024 3:52 PM EST Sent erx * Telephone Encounter - Sparkle Garcia LPN - 11/23/2024 10:02 AM EST Spoke with patient he is taking both the 100 and the 25 and he needs both scripts filled. They are pended please sign if agreeable * Telephone Encounter - Tati Polo MD - 11/21/2024 7:11 PM EST Pt should be on metoprolol ER 125 mg twice per day(100 mg + 25 mg twice per day). This is accordingto last cardiology note. Please confirm with pt that he is on this dose and if he needs refill of 100 mg or 25 mg doses. * Telephone Encounter - Nayla Valverde OSA - 11/21/2024 2:52 PM EST Received a prescription refill for Metoprolol Succinate Er Oral Tablet Extended Release 24 Hour 50 MG Sig: TAKE 1 TABLET BY MOUTH TWICE A DAY for 30 days I was unsure what to do with this because when I went to refill this medication it is not an optionto refill. My only option to refill is a Metoprolol 25 MG or a Metoprolol 100 MG. documented in this encounter Plan of Treatment Upcoming Encounters Date Type Department Care Team (Late st Contact Info) Description 11/27/2024 9:50 AM EST Office Visit Pharmacy, [place] [place] [phone] [address] [facility] [address] [place] [facility] [place] [address] 11/27/2024 11:20 AM EST Office Visit Family Practice, [place] [address] [phone] Red Ornelas MD 226 [place] [address] 01/29/2025 9:30 AM EDT Imaging [facility] 132 [facility] [place] [phone] 06/04/2025 9:30 AM EDT Office Visit Cardiology, [facility] 132 [place] [address] Sweta Loving CRNP 400 [facility] [place] [phone] 07/09/2025 10:00 AM EDT Office Visit Pulmonary Medicine, [facility] [address] [place] [address] Vishal Wallace MD [address] [place] [address] Scheduled Procedures Name Priority Associated Diagnoses Date/Ti [...] encounter Medical Devices Implanted Type Area Traffic Enumerator Device Identifier Shelf Expiration Date Model / Serial / Lot Suture [place] Dbl Load 4.75mm - [id number] Implanted:Qty: 1 on 12/01/2019 by Judith Condon, at OR [facility] Right: Shoulder [employer] 07/17/2021 AR-2324BCT -2 / / [id number] Suture [place] Dbl Load 5.5mm - [id number] Implanted:Qty: 1 on 12/01/2019 by Judith Condon, at OR [facility] Right: Shoulder [employer] 09/16/2021 AR-2323BCT -2 / / [id number] documented as of this encounter Advance Directives [...] Advance Directives occurred with: Patient Care Teams Technical Recruiter Relationship Specialty Start Date End Date Tati Polo MD PCP - General Family Medicine 09/09/22 documented as of this encounter
--- OUTSIDE RECORDS SUMMARY | 2024-12-22 12:52 | External Medical Summary | Summary of Care ---
Author Name Unknown Organization [facility] Address [address] [facility] [place] [address] Phone [phone] Care Team Providers Care Mercury Cell Cleaner Name Role Phone Velasquez Valencia MD Primary Care Provider +1- [phone] Reason for Visit * Reason Comments Outpatient Testing Encounter Details Date Type Department Care Team (Late st Contact Info) Description 11/27/2024 9:10 AM EST Laboratory Laboratory, [address] [facility] [place] [place] [address] [facility] [address] Children[place]OP.[place], [place] [phone] Chronic diastolic congestive heart failure (HCC) Allergies Active Allergy Reactions [...] 2 times a day. Active Omnipod 5 [id number] Pods Gen 5Indications:Typ e 2 diabetes mellitus with hemoglobin A1c goal of less than 7.0% ([facility]) Use as directed. Change pod every 1.5 days 60 Each 3 11/09/2024 12:19 PM EST 5 Active Insulin Aspart 100 UNIT/ML Injection Solution (NovoLOG)Indicat ions:Type 2 diabetes mellitus with hemoglobin A1c goal of less than 7.0% ([facility]) Inject up to 140 units daily using [...] before bedtime. 180 Tablet 3 5 Active dexAMETHasone 0.5 MG/5ML Oral Solution [...] Date Chronic diastolic congestive heart failure 11/06 Lvkvquc-Xahzi-Ndqpj disease 11/06/2024 Coronary artery disease invo lving [place] coronary artery of [place] heart without angina pectoris 10/17/2024 Well adult [...] mRNA, LNP-s, No Pre serve, 2-Dose Series (Accelergy) 10/21/2021,03/01/2021,02/07/2021 H1N1 2009 Influenza, IM 11/04/2009 Pneumococcal Conjugate Vacci ne, 20-valent ([id number]) 07/09/2023 Pneumococcal Polysaccharide PPV23 (Pneumovax) 11/03/2015,02/09/2006 Seasonal [...] Description 11/27/2024 11:20 AM EST [facility] [address] [place] [phone] Red Ornelas MD [address] [place] [address] Arrived 12/29/2024 2:50 PM EDT [facility] [place] [phone] Sharad [facility] [address] [facility], [place] [address] 01/29/2025 9:30 AM EDT Imaging [facility] [phone] 06/04/2025 9:30 AM EDT Office Visit Cardiology, [facility] [address] [facility] [place] [address] Sweta Loving, SCRATCHER TENDER [address] [facility] [place] [address] 07/09/2025 10:00 AM EDT Office Visit Pulmonary Medicine, [facility] [address] [facility] [place] [address] Vishal Wallace MD [address] [facility] [address] Pending Results Name Type Priority Associated Diagnoses Date /Time BASIC METABOLIC PANEL Lab Routine Chronic diastolic congestive heart failure (HCC) 11/27/2024 8:51 AM EST Scheduled Procedures Name Priority Associated Diagnoses Date/Ti [...] FOR COPD 10/26/2025 10/26/2024 GFR 11/15/2025 11/15/2024, 010 05/2025, 08/02/2024, Additional history exists DTap/Tdap Vaccines [...] encounter Medical Devices Implanted Type Area Substation Engineer Device Identifier Shelf Expiration Date Model / Serial / Lot Suture [place] Dbl Load 4.75mm - [id number] Implanted:Qty: 1 on 12/01/2019 by Judith Condon DO at OR [facility] Right: Shoulder [employer] 07/17/2021 AR-2324BCT -2 / / [id number] Suture [place] Dbl Load 5.5mm - [id number] Implanted:Qty: 1 on 12/01/2019 by Judith Condon DO at OR [facility] Right: Shoulder [employer] 09/16/2021 AR-2323BCT -2 / / [id number] documented as of this encounter Visit Diagnoses Diagnosis Chronic diastolic congestive heart failure (HCC) Chronic diastolic heart failure documented in this encounter Advance Directives * [...] Advance Directives occurred with: Patient Care Teams Mercury Cell Cleaner Relationship Specialty Start Date End Date Velasquez Valencia MD PCP - General Family Medicine 09/09/22 documented as of this encounter
--- OUTSIDE RECORDS SUMMARY | 2024-12-22 12:53 | External Medical Summary ---
Author Name Unknown Address Unknown Organization [id number]:[facility]ATORY [facility] [place] - [address] [facility] [address] [facility] [address] Laboratory Report Ordering Provider Test Date Status 11/16/2024 10:02:50 Final Observation Date Value Abnormality Reference (Units ) Status Campylobacter sp DNA.diarrheagenic [Presence] in Stool by COLE with probe detection 11/16/2024 10:02:50 Negative Negative Final Salmonella sp rpoD gene [Presence] in Stool by COLE with probe detection 11/16/2024 10:02:50 Negative Negative Final Shigella species+EIEC invasion plasmid antigen H ipaH gene [Presence] in Stool by COLE with probe detection 11/16/2024 10:02:50 Negative Negative Final Vibrio sp DNA [Identifier] in Specimen by COLE with probe detection 11/16/2024 10:02:50 Negative Negative Final Yersinia enterocolitica recN gene [Presence] in Stool by COLE with probe detection 11/16/2024 10:02:50 Negative Negative Final Escherichia coli Stx1 toxin stx1 gene [Presence] in Stool by COLE with probe detection 11/16/2024 10:02:50 Negative Negative Final Escherichia coli Stx2 toxin stx2 gene [Presence] in Stool by COLE with probe detection 11/16/2024 10:02:50 Negative Negative Final Norovirus genogroups I and II RNA panel - Stool by COLE with probe detection 11/16/2024 10:02:50 Negative Negative Final Rotavirus A RNA [Presence] in Stool by COLE with probe detection 11/16/2024 10:02:50 Negative Negative Final Performing Location [facility] [place] - [address] [facility] [place] [address]
--- OUTSIDE RECORDS SUMMARY | 2024-12-22 12:53 | External Medical Summary ---
Author Name Unknown Address Unknown Organization [id number]:[facility]ATORY [facility] [place] - [address] [place] [address] Laboratory Report Ordering Provider Test Date Status 11/16/2024 10:02:50 Final Observation Date Value Abnormality Reference (Units) Status Bacteria identified in Specimen by Culture 11/16/2024 10:02:50 No Aeromonas species or Plesiomonas species isolated. Final Test: Gastrointestinal Patho gen Panel Culture
Specimen Source: Stool
Specimen Type: Stool
Specimen Date: 11/16/2024 1002
Result Date: 2024 1250
Result Status: Final result
Resulting Lab: [facility] [place]
[address]
[place] [address]

CULTURE

No Aeromonas species or Plesiomonas species isolated.

null Performing Location LAB[facility]ATORY [facility] [place] - [address] [place] [id number]
--- OUTSIDE RECORDS SUMMARY | 2024-12-22 12:53 | External Medical Summary ---
Author Name Unknown Address Unknown Organization [id number]:LABORATORY [facility] [place] - [address] [place] [address] Laboratory Report Ordering Provider Test Date Status 11/16/2024 10:02:41 Final Observation Date Value Abnormality Reference (Units) Status Source 11/16/2024 10:02:41 Semi-formed Final Clostridioides difficile toxin and [id number] strain DNA panel - Stool by COLE with probe detection 11/16/2024 10:02:41 Negative. No C. difficile toxin B gene DNA detected by PCR (Amplified Probe). Negative Final Performing Location LABORATORY [facility] [place] - [address] [place] [address]
--- OUTSIDE RECORDS SUMMARY | 2024-12-22 12:53 | External Medical Summary | Summary of Care ---
Author Name Unknown Organization [facility] Address [address] [facility] [place] [address] Phone [phone] Care Team Providers Care Community Center Worker Name Role Phone Velasquez Valencia MD Primary Care Provider +1- [phone] Encounter Details Date Type Department Care Team (Late st Contact Info) Description 11/17/2024 Orders Only PATIENT PORTAL DO NOT DELETE THIS DEPT USED BY [place] [id number] Allergies Active Allergy Reactions Criticality Noted Date Comments Pioglitazone 07/19/2024 Cefaclor Unknown 07/26/2018 As child Empagliflozin Other (Please comment) 05/16/2021 DKA with hospitalization Nsaids High 04/19/2019 Gastric problems Other Reaction(s): gastroparesis, kidney problems, use with caution : hx esophagus damage documented as of this encounter (statuses as of 11/17/2024) Medications Ondansetron HCl 4 MG Oral Tablet [...] 2 times a day. Active Omnipod 5 [id number] Pods Gen 5Indications:Typ e 2 diabetes mellitus with hemoglobin A1c goal of less than 7.0% ([facility]) Use as directed. Change pod [...] as of this encounter (statuses as of 11/17/2024) Active Problems Problem Noted Date Diagnosed Date Chronic diastolic congestive heart failure 11/06 Ykfvqxj-Qeegj-Tapcy disease 11/06/2024 Coronary artery disease invo lving [place] coronary artery of [place] heart without angina pectoris 10/17/2024 Well adult [...] as of this encounter (statuses as of 11/17/2024) Resolved Problems Problem Noted Date Diagnosed Date [...] as of this encounter (statuses as of 11/17/2024) Immunizations Name Administration Dates Next Due COVID-19 mRNA, LNP-s, No Pre serve, 2-Dose Series (Pfizer) 10/21/2021,03/01/2021,02/07/2021 H1N1 2009 Influenza, IM 11/04/2009 Pneumococcal Conjugate Vacci ne, 20-valent ([id number]) 07/09/2023 Pneumococcal Polysaccharide PPV23 (Pneumovax) 11/03/2015,02/09/2006 Seasonal [...] No 08/15/2024 Does the household have a [facility] hospitallar source of income? (Household - for [...] 11/23/2024 8:00 AM EST Office Visit Family [facility] [address] [facility] [place] [phone] Velasquez Valencia MD 226 [place] [address] 11/23/2024 8:30 AM EST Office Visit Pharmacy, [place] [address] [place] [phone] Sharad [facility] [address] [place] [address] 01/29/2025 9:30 AM EDT Imaging Radiology [facility] [address] [place] [phone] 06/04/2025 9:30 AM EDT Office Visit Cardiology, [facility] [address] [facility] [place] [address] Sweta Loving CRNP [address] [facility] [place] [address] 07/09/2025 10:00 AM EDT Office Visit Pulmonary Medicine, [address] [place] [address] Vishal Wallace MD [address] [place] [id number] Scheduled Procedures Name Priority Associated Diagnoses Date/Ti [...] 04/19/2024 DISCUSS TOBACCO CESSATION (REFER TO SMARTSET #1098) 07/19/2025 07/19/2024, 10/16/2022 Diabetic Eye Exam 09/22/2025 [...] this encounter Medical Devices Implanted Type Area Vacuum Furnace Operator Device Identifier Shelf Expiration Date Model / Serial / Lot Suture [place] Dbl Load 4.75mm - [id number] Implanted:Qty: 1 on 12/01/2019 by Judith Condon DO at OR [facility] Right: Shoulder [employer] 07/17/2021 AR-2324BCT -2 / / [id number] Suture [place] Dbl Load 5.5mm - [id number] Implanted:Qty: 1 on 12/01/2019 by Judith Condon DO at OR [facility] Right: Shoulder [employer] 09/16/2021 AR-2323BCT -2 / / [id number] documented as of this encounter Advance Directives [...] Directives occurred with: Patient Care Teams Community Center Worker Relationship Specialty Start Date End Date Velasquez Valencia MD PCP - General Family Medicine 09/09/22 documented as of this encounter
--- OUTSIDE RECORDS SUMMARY | 2024-12-22 12:53 | External Medical Summary | Summary of Care ---
Author Name Unknown Organization [facility] Address [address] [address] [place] [address] Phone [phone] Care Team Providers Care Corporate Director Talent Assessment Name Role Phone Velasquez Valencia MD Primary Care Provider +1- [phone] Reason for Visit * Reason Onset Date Comments Nurse Documentation 11/13/2024 Encounter Details Date Type Department Care Team (Late st Contact Info) Description 11/13/[address] [address] [facility] [place] [phone] Velasquez Valencia MD [address] [place] [address] Nurse Documentation Allergies Active Allergy Reactions Criticality Noted Date Comments Pioglitazone 07/19/2024 Cefaclor Unknown 07/26/2018 As child Empagliflozin Other (Please comment) 05/16/2021 DKA with hospitalization Nsaids High 04/19/2019 Gastric problems Other Reaction(s): gastroparesis, kidney problems, use with caution : hx esophagus damage documented as of this encounter (statuses as of 11/13/2024) Medications Ondansetron HCl 4 MG Oral Tablet [...] 4 10/13/2024 12:51 PM EST 4 Active Metoprolol Succinate 100 MG Oral Capsule ER 24 Hour Sprinkle Take 1 Tablet by mouth 2 times a day. Take in addition to a 25mg tablet twice daily (for a total of 125mg twice daily). Active Metoprolol Succinate 25 MG Oral Capsule ER 24 Hour Sprinkle Take 1 Tablet by mouth 2 times a day. Take one tablet twice daily in addition to 100mg tablet twice daily (for a total of 125mg twice daily). Active Gabapentin 300 MG Oral Capsule (Neurontin) Take 1 Capsule by mouth 2 times a day. Active Omnipod 5 [id number] Pods Gen 5Indications:Typ e 2 diabetes mellitus [...] 4 11/07/2024 11:26 AM EST 5 Active amLODIPine Besylate 5 MG Oral Tablet (Norvasc)Indicat ions:HTN, goal below 140/90 Take 1 Tablet by mouth in the morning. 90 Tablet 3 5 Active Spironolactone 25 MG Oral Tablet (Aldactone)Indic ations:HTN, goal below 140/90 Take 2 Tablets by mouth in the morning. 90 Tablet 3 5 Active Additional Information Patient not taking.Reported on 11/06/2024 Torsemide 20 MG Oral Tablet (Demadex) Take 1 Tablet by mouth in the morning. Active Saccharomyces boulardii 250 MG Oral Capsule (Florastor)Indic ations:Diarrhea, unspecified type Take 1 Capsule by mouth in the morning and 1 Capsule before bedtime. 30 Capsule 5 Active documented as of this encounter (statuses as of 11/13/2024) Active Problems Problem Noted Date Diagnosed Date Chronic diastolic congestive heart failure 01/20 /2025 Bjlcxzt-Nxkdk-Bmcrc disease 11/06/2024 Coronary artery disease invo lving [place] coronary artery of [place] heart without angina pectoris 10/17/2024 Well [...] as of this encounter (statuses as of 11/13/2024) Resolved Problems Problem Noted Date Diagnosed Date [...] as of this encounter (statuses as of 11/13/2024) Immunizations Name Administration Dates Next Due COVID-19 mRNA, LNP-s, No Pre serve, 2-Dose Series ([employer]) 10/21/2021,03/01/2021,02/07/2021 H1N1 2009 Influenza, IM 11/04/2009 Pneumococcal Conjugate Vacci ne, 20-valent ([id number]) 07/09/2023 Pneumococcal Polysaccharide PPV23 (Pneumovax) 11/03/2015,02/09/2006 Seasonal [...] Encounter - Emily Wang MED ASSIST - 11/13/2024 1:22 PM EST Received Fax for BFPROVIDERS: Dr. Velasquez Valencia Prescription refill received from [facility] and FAXED Received Fax for BFPROVIDERS: Dr. Velasquez Valencia PT PLAN OF CARE/EVALUATION received from [facility] and FAXED documented in this encounter Plan of Treatment Upcoming Encounters Date Type Department Care Team (Late st Contact Info) Description 11/15/2024 8:00 AM EST Office Visit Cardiology, [address] [place] [address] Sweta Loving [facility] [place] [phone] 11/21/2024 1:00 PM EST [facility] [address] [facility] [place] [phone] Cally Hare MD [address] [facility] [place] [address] 11/23/2024 8:00 AM EST Office Visit [facility], [facility] [phone] Velasquez Valencia MD 226 [place] [address] 11/23/2024 8:30 AM EST Office [address] [phone] Sharad [address] [address] 01/29/2025 9:30 AM EDT Imaging Radiology [facility] 1st [facility] [address] [place] [phone] 07/09/2025 10:00 AM EDT Office Visit Pulmonary Medicine, [facility] [address] [place] [address] Vishal Walalce MD [address] [facility] [place] [address] Scheduled Procedures Name Priority Associated Diagnoses Date/Ti [...] Additional history exists Postponed from 07/28/2024 (Unavailable) GFR 10/25/2025 10/25/2024, 07/18, 07/29/2024, Additional history exists O2 ASSESSMENT COMPLETED IN PAST YEAR FOR COPD 10/26/2025 10/26/2024 DTap/Tdap Vaccines (2 - Td or Tdap) [...] this encounter Medical Devices Implanted Type Area Sheet Metal Shop Helper Device Identifier Shelf Expiration Date Model / Serial / Lot Suture [place] Dbl Load 4.75mm - [id number] Implanted:Qty: 1 on 12/01/2019 by Judith Condon, DO at OR [facility] Right: Shoulder [employer] 07/17/2021 AR-2324BCT -2 / / [id number] Suture [place] Dbl Load 5.5mm - [id number] Implanted:Qty: 1 on 12/01/2019 by Judith Condon, at OR [facility] Right: Shoulder [employer] 09/16/2021 AR-2323BCT -2 / / [id number] documented as of this encounter Advance Directives [...] Advance Directives occurred with: Patient Care Teams Corporate Director Talent Assessment Relationship Specialty Start Date End Date Velasquez Valencia MD PCP - General Family Medicine 09/09/22 documented as of this encounter
--- OUTSIDE RECORDS SUMMARY | 2024-12-22 12:53 | External Medical Summary | Summary of Care ---
Author Name Unknown Organization [facility] Address [address] [facility] [place] [address] Phone [phone] Care Team Providers Care Workday Director Name Role Phone Velasquez Valencia MD Primary Care Provider +1- [phone] Reason for Visit * Reason Comments Outpatient Testing Encounter Details Date Type Department Care Team (Late st Contact Info) Description 11/16/2024 10:10 AM EST Laboratory Laboratory, [facility] 226 [place] [address] St, Specimen Drop Off [place] [address] [place] [address] Diarrhea, unspecified type Allergies Active Allergy Reactions Criticality Noted Date Comments Pioglitazone 07/19/2024 Cefaclor Unknown 07/26/2018 As child Empagliflozin Other (Please comment) 05/16/2021 DKA with hospitalization Nsaids High 04/19/2019 Gastric problems Other Reaction(s): gastroparesis, kidney problems, use with caution : hx esophagus damage documented as of this encounter (statuses as of 11/16/2024) Medications Ondansetron HCl 4 MG Oral Tablet [...] 2 times a day. Active Omnipod 5 [id number] Pods Gen 5Indications:Typ e 2 diabetes mellitus [...] as of this encounter (statuses as of 11/16/2024) Active Problems Problem Noted Date Diagnosed Date Chronic diastolic congestive heart failure 11/06 Hatlqeo-Rzltk-Dupvv disease 11/06/2024 Coronary artery disease invo lving [place] coronary artery of [place] heart without angina pectoris 10/17/2024 Well adult [...] as of this encounter (statuses as of 11/16/2024) Resolved Problems Problem Noted Date Diagnosed Date [...] as of this encounter (statuses as of 11/16/2024) Immunizations Name Administration Dates Next Due COVID-19 mRNA, LNP-s, No Pre serve, 2-Dose Series ([employer]) 10/21/2021,03/01/2021,02/07/2021 H1N1 2009 Influenza, IM 11/04/2009 Pneumococcal Conjugate Vacci ne, 20-valent ([id number]) 07/09/2023 Pneumococcal Polysaccharide PPV23 (Pneumovax) 11/03/2015,02/09/2006 Seasonal [...] AM EST Office Visit Family Practice, [facility] [address] [facility] [place] [phone] Velasquez Valencia MD 226 [facility] [place] [address] 11/23/2024 8:30 AM EST [facility] [place] [facility] [address] [facility] [place] [phone] Sharad [place] [phone] [facility] [address] 01/29/2025 9:30 AM EDT Imaging Radiology [facility] 1st [facility] [address] [phone] 06/04/2025 9:30 AM EDT Office Visit Cardiology, [facility] [address] [place] [address] Sweta Loving CRNP [address] [place] [address] 07/09/2025 10:00 AM EDT Office Visit Pulmonary Medicine, [facility] 132 [facility] [place] [address] Vishal Wallace MD [address] [facility] [place] [phone] Pending Results Name Type Priority Associated Diagnoses Date /Time CLOSTRIDIUM DIFFICILE, PCR Lab Routine Diarrhea, unspecified type 11/16/2024 10:02 AM EST GASTROINTESTINAL PATHOGEN PANEL, STOOL Lab Routine Diarrhea, unspecified type 11/16/2024 10:02 AM EST GASTROINTESTINAL PATHOGEN PANEL PCR Lab Routine Diarrhea, unspecified type 11/16/2024 10:02 AM EST GASTROINTESTINAL PATHOGEN PANEL CULTURE Lab Routine Diarrhea, unspecified type 11/16/2024 10:02 AM EST Scheduled Procedures Name Priority Associated [...] 04/19/2024 DISCUSS TOBACCO CESSATION (REFER TO SMARTSET #8226) 07/19/2025 07/19/2024, 10/16/2022 Diabetic Eye Exam 09/22/2025 [...] this encounter Medical Devices Implanted Type Area Ball Point Splitter Device Identifier Shelf Expiration Date Model / Serial / Lot Suture [place] Dbl Load 4.75mm - [id number] Implanted:Qty: 1 on 12/01/2019 by Judith Condon DO at OR [facility] Right: Shoulder [employer] 07/17/2021 AR-2324BCT -2 / / [id number] Suture [place] Dbl Load 5.5mm - [id number] Implanted:Qty: 1 on 12/01/2019 by Judith Condon DO at OR [facility] Right: Shoulder [employer] 09/16/2021 AR-2323BCT -2 / / [id number] documented as of this encounter Visit Diagnoses Diagnosis Diarrhea, unspecified type documented in this encounter Additional Health Concerns Infection Onset Date Last Indicated Resolved Time C. difficile Rule-Out 11/16/2024 11/16/2024 Gastrointestinal Rule-Out 11/16/2024 11/16/2024 documented as of this encounter Advance Directives [...] Advance Directives occurred with: Patient Care Teams Workday Director Relationship Specialty Start Date End Date Velasquez Valencia MD PCP - General Family Medicine 09/09/22 documented as of this encounter
--- OUTSIDE RECORDS SUMMARY | 2024-12-22 12:53 | External Medical Summary ---
Author Name Unknown Address Unknown Organization [id number][facility] [address] [place] [address] Laboratory Report Ordering Provider Test Date Status IFDE CARNES 11/15/2024 08:31:49 Final Observation Date Value Abnormality Reference (Units ) Status BUN 11/15/2024 08:31:49 56 Above high normal 6-20 (mg/dL) Final Creatinine 11/15/2024 08:31:49 1.3 Above high normal 0.6-1.2 (mg/dL) Final Glomerular filtration rate/1.73 sq M.predicted [Volume Rate/Area] in Serum, Plasma or Blood by Creatinine-based formula (CKD-EPI) 11/15/2024 08:31:49 68 >=60 (mL/min) Final eGFR is calculated based on the CKD-EPI 2020 equation. Sodium 11/15/2024 08:31:49 140 135-146 (m mol/L) Final Potassium 11/15/2024 08:31:49 4.1 3.5-5.1 (m mol/L) Final Cl 11/15/2024 08:31:49 106 98-107 (mm ol/L) Final CO2 11/15/2024 08:31:49 20 Below low normal 22- 32 (mmol/L) Final Anion gap 11/15/2024 08:31:49 14 7-15 (mmol /L) Final Glucose 11/15/2024 08:31:49 202 Above high normal 70 -120 (mg/dL) Final Calcium 11/15/2024 08:31:49 9.1 8.4-10.2 ( mg/dL) Final Performing Location [facility] [place] [address]
--- OUTSIDE RECORDS SUMMARY | 2024-12-22 12:53 | External Medical Summary | Summary of Care ---
Author Name Unknown Organization [facility] Address [address] [facility] [place] [address] Phone [phone] Care Team Providers Care Shovel Mechanic Name Role Phone Velasquez Valencia MD Primary Care Provider +1- [phone] Reason for Visit * Reason Comments Outpatient Testing Encounter Details Date Type Department Care Team (Late st Contact Info) Description 11/16/2024 10:10 AM EST Laboratory Laboratory, [facility] [address] [place] [address] St, Specimen Drop Off [place] 226 [place] [address] Diarrhea, unspecified type Allergies Active Allergy [...] 2 times a day. Active Omnipod 5 [id number] Pods Gen 5Indications:Typ e 2 diabetes mellitus [...] Date Chronic diastolic congestive heart failure 11/06 Luyiqpb-Itdce-Xpcys disease 11/06/2024 Coronary artery disease invo lving [place] coronary artery of [place] heart without angina pectoris 10/17/2024 Well adult [...] mRNA, LNP-s, No Pre serve, 2-Dose Series (Muecs) 10/21/2021,03/01/2021,02/07/2021 H1N1 2009 Influenza, IM 11/04/2009 Pneumococcal Conjugate Vacci ne, 20-valent ([id number]) 07/09/2023 Pneumococcal Polysaccharide PPV23 (Pneumovax) 11/03/2015,02/09/2006 Seasonal [...] documented in this encounter Miscellaneous Notes * Result Encounter Note - Red Ornelas MD - 11/17/2024 10:17 AM EST Negative GI pathogen panel. Red Ornelas MD documented in this encounter Plan of Treatment Upcoming Encounters Date Type Department Care Team (Late st Contact Info) Description 11/23/2024 8:00 AM EST Office Visit Family Practice, [facility] [place] [phone] Velasquez Valencia MD [address] [place] [address] 11/23/2024 8:30 AM EST Office Visit Pharmacy, [place] [phone] Sharad [facility] [address] [facility] [place] [address] 01/29/2025 9:30 AM EDT Imaging Radiology [facility] 1st Floor, [place] [address] [facility] [place] [phone] 06/04/2025 9:30 AM EDT Office Visit Cardiology, [facility] [address] [facility] [place] [address] Sweta Loving, SHY [address] [place] [address] 07/09/2025 10:00 AM EDT Office Visit Pulmonary Medicine, [facility] [address] [facility] [place] [address] Vishal Wallace MD [address] [facility] [place] [address] Pending Results Name Type Priority Associated Diagnoses Date /Time GASTROINTESTINAL PATHOGEN PANEL, STOOL Lab Routine Diarrhea, [...] 04/19/2024 DISCUSS TOBACCO CESSATION (REFER TO SMARTSET #0387) 07/19/2025 07/19/2024, 10/16/2022 Diabetic Eye Exam 09/22/2025 [...] this encounter Medical Devices Implanted Type Area Family Court Justice Device Identifier Shelf Expiration Date Model / Serial / Lot Suture [place] Dbl Load 4.75mm - [id number] Implanted:Qty: 1 on 12/01/2019 by Judith Condon, DO at OR [facility] Right: Shoulder [employer] 07/17/2021 AR-2324BCT -2 / / [id number] Suture [place] Dbl Load 5.5mm - [id number] Implanted:Qty: 1 on 12/01/2019 by Judith Condon DO at OR [facility] Right: Shoulder [employer] 09/16/2021 AR-2323BCT -2 / / [id number] documented as of this encounter Procedures Procedure Name Priority Date/Time Associated Diagnosis Comments GASTROINTESTINAL PATHOGEN PANEL CULTURE Routine 11/16/2024 10:02 AM EST Diarrhea, unspecified type GASTROINTESTINAL PATHOGEN PANEL PCR Routine 11/16/2024 10:02 AM EST Diarrhea, unspecified type CLOSTRIDIUM DIFFICILE, PCR Routine 11/16/2024 10:02 AM EST Diarrhea, unspecified type documented in this encounter Results * GASTROINTESTINAL PATHOGEN PANEL PCR (11/16/2024 10:02 AM EST) Pathologist [facility] Campylobacter group by PCR Negative Negative 11/16/2024 9:17 PM EST [facility] Salmonella species by PCR Negative Negative 11/16/2024 9:17 PM EST [facility] Shigella species by PCR Negative Negative 11/16/2024 9:17 PM EST [facility] Vibrio group by PCR Negative Negative 11/16/2024 9:17 PM EST [facility] Yersinia enterocolitica by PCR Negative Negative 11/16/2024 9:17 PM EST [facility] Shiga Toxin 1 Gene by PCR Negative Negative 11/16/2024 9:17 PM EST [facility] Shiga Toxin 2 Gene by PCR Negative Negative 11/16/2024 9:17 PM EST [facility] Norovirus by PCR Negative Negative 11/16/19 25 9:17 PM EST [facility] Rotavirus by PCR Negative Negative 11/16/19 25 9:17 PM EST [facility] Stool Stool specimen / Unknown Non-blood Collection / Unknown 11/16/2024 10:02 AM EST 11/16/2024 10:02 AM EST Red Ornelas MD LAB MICRO - GENERAL ORDERABLES Final Result [facility] [address] [place] [address] * CLOSTRIDIUM DIFFICILE, PCR (11/16/2024 10:02 AM EST) Stool Consistency Semi-formed 11/16/2024 2:07 PM EST [facility] Clostridium difficile Result Negative. No C. difficile toxin B gene DNA detected by PCR (Amplified Probe). Negative 11/16/2024 2:07 PM EST [facility] Stool Stool specimen / Unknown Non-blood Collection / Unknown 11/16/2024 10:02 AM EST 11/16/2024 10:02 AM EST Red Ornelas MD LAB MICRO - GENERAL ORDERABLES Final Result [facility] [address] [place] [address] documented in this encounter Visit Diagnoses Diagnosis Diarrhea, unspecified type documented in this encounter Additional Health Concerns Infection Onset Date Last Indicated Resolved Time C. difficile Rule-Out 11/16/2024 11/16/20242024 2:07 PM EST Gastrointestinal Rule-Out 11/16/2024 11/16/2024 9:17 PM EST documented as of this encounter [...] Advance Directives occurred with: Patient Care Teams Shovel Mechanic Relationship Specialty Start Date End Date Velasquez Valencia MD PCP - General Family Medicine 09/09/22 documented as of this encounter
--- OUTSIDE RECORDS SUMMARY | 2024-12-22 12:53 | External Medical Summary ---
Author Name Unknown Address Unknown Organization K01:[facility] - [address] [place] [address] Laboratory Report Ordering Provider Test Date Status FIDE CARNES 11/15/2024 08:31:49 Final Observation Date Value Abnormality Reference (Units ) Status Magnesium 11/15/2024 08:31:49 1.7 1.5-2.6 (m g/dL) Final Performing Location [facility] - [address] [place] [place] [address]
--- OUTSIDE RECORDS SUMMARY | 2024-12-22 12:54 | External Medical Summary | Summary of Care ---
Author Name Unknown Organization [facility] Address [address] [facility] [place] [address] Phone [phone] Care Team Providers Care Pain Medicine Physician Name Role Phone Velasquez Valencia MD Primary Care Provider +1- [phone] Reason for Visit * Reason Onset Date Comments Advice 11/10/2024 Encounter Details Date Type Department Care Team (Late st Contact Info) Description 11/10/2024 [facility] [address] [facility] [place] [address] Velasquez Valencia MD [address] [place] [address] Advice Allergies Active Allergy Reactions Criticality Noted Date Comments Pioglitazone 07/19/2024 Cefaclor Unknown 07/26/2018 As child Empagliflozin Other (Please comment) 05/16/2021 DKA with hospitalization Nsaids High 04/19/2019 Gastric problems Other Reaction(s): gastroparesis, kidney problems, use with caution : hx esophagus damage documented as of this encounter (statuses as of 11/10/2024) Medications Ondansetron HCl 4 MG Oral Tablet [...] 2 times a day. Active Omnipod 5 [id number] Pods Gen 5Indications:Typ e 2 diabetes mellitus [...] Capsule before bedtime. 30 Capsule 5 Active dexAMETHasone 0.5 MG/5ML Oral Solution (Decadron)Indica tions:Oral aphthous ulcer Take 10 mL by mouth in the morning and 10 mL at noon and 10 mL in the evening and 10 mL before bedtime. Do all this for 5 days. 200 mL 5 11/11/19 Active documented as of this encounter (statuses as of 11/10/2024) Active Problems Problem Noted Date Diagnosed Date Chronic diastolic congestive heart failure 11/06 Zbcvgjk-Qydwl-Ipiuo disease 11/06/2024 Coronary artery disease invo lving [place] coronary artery of [place] heart without angina pectoris 10/17/2024 Well adult [...] as of this encounter (statuses as of 11/10/2024) Resolved Problems Problem Noted Date Diagnosed Date [...] as of this encounter (statuses as of 11/10/2024) Immunizations Name Administration Dates Next Due COVID-19 mRNA, LNP-s, No Pre serve, 2-Dose Series ([employer]) 10/21/2021,03/01/2021,02/07/2021 H1N1 2009 Influenza, IM 11/04/2009 Pneumococcal Conjugate Vacci ne, 20-valent ([id number]) 07/09/2023 Pneumococcal Polysaccharide PPV23 (Pneumovax) 11/03/2015,02/09/2006 Seasonal [...] encounter Miscellaneous Notes * Telephone Encounter - Red Ornelas MD - 11/10/2024 9:35 AM EST Stool studies were sent with patient at office visit but have not been completed. I am concerned for c diff given profuse diarrhea. Given severity of symptoms, eval in the ED is reasonable to rule out pancreatitis, obstruction etc. Imodium is only appropriate antidiarrheal, however, this should notbe used if patient has infectious diarrhea which can only be ruled out with stool studies. Red Ornelas MD * Telephone Encounter - Jovanny Azul LPN - 11/10/2024 8:57 AM EST Pt's EC Ni is calling. Reports that the pt has had perfuse diarrhea since last Friday 11/03. [place] the beginningof the week. CT was preformed and nothing was seen and was only given IV fluids- no prescriptions. Saw Dr. Ornelas on 11/06/24. Diarrhea is to the point that pt is incontinent of bowel and pt is wearing briefs. Rectum is sore. Reports that the pt is taking deep breaths and moaning- not short of breath or breathing heavy because of pain but believes that this is happening because pt "freaking himself out." States that the diarrhea is salomon and has a foul odor. Pt is getting pains to his left side and is the same as when pt had pancreatitis. Pt is staying hydrated. Has tried imodium, Pepto bismol and Pedialyte. Denies blood is BM's and fever. Will attempt to collect stool specimen today. BRAT diet was encouraged. Is asking if something could be prescribed for frequent diarrhea? Pharmacy selected. Please advise. * Telephone Encounter - Vandana Craft OSA - 11/10/2024 8:53 AM EST Reason for patient's call: Girlfriend looking to speak to a nurse in regards to boyfriends bowel movements. Girlfriend stated they are uncontrollable. Caller was transferred to jovanny at the nurse line. documented in this encounter Plan of Treatment Upcoming Encounters Date Type Department Care Team (Late st Contact Info) Description 11/15/2024 8:00 AM EST Office Visit Cardiology, [facility] [address] [facility] [place] [address] Sweta Loving CRNP [address] [place] [address] [place] [address] 11/17/2024 8:40 AM EST Office Visit Nutrition & Weight Management, [facility] [address] [place] [address] Thao Lemus PA-C [address] [place] [address] 11/17/2024 9:30 AM EST Nurse Only Nutrition & Weight Management, [facility] [address] [place] [address] Funk, Nutrition Ed Class 1 [place] [address] [address] [place] [address] 11/21/2024 1:00 PM EST Office Visit Sleep Disorders Medicine [address] [place] [phone] Cally Hare MD [address] [place] [address] [place] [address] 11/23/2024 8:00 AM EST Office Visit Family Practice, [place] [address] [facility] [place] [phone] Velasquez Valencia MD [address] [facility] [place] [address] 11/23/2024 8:30 AM EST Office Visit Pharmacy, [place] [facility] [place] [phone] Sharad [facility] [address] [facility] [address] 01/29/2025 9:30 AM EDT Imaging Radiology [facility] 1st [facility] [address] [place] [phone] 07/09/2025 10:00 AM EDT Office Visit Pulmonary Medicine, [facility] [address] [place] [address] Vishal Wallace MD [address] [place] [address] Scheduled Procedures Name Priority Associated Diagnoses Date/Ti [...] this encounter Medical Devices Implanted Type Area Fumigator And Sterilizer Device Identifier Shelf Expiration Date Model / Serial / Lot Suture [place] Dbl Load 4.75mm - [id number] Implanted:Qty: 1 on 12/01/2019 by Judith Condon DO at [facility] Right: Shoulder [employer] 07/17/2021 AR-2324BCT -2 / / [id number] Suture [place] Dbl Load 5.5mm - [id number] Implanted:Qty: 1 on 12/01/2019 by Judith Condon DO at [facility] Right: Shoulder [employer] 09/16/2021 AR-2323BCT -2 / / [id number] documented as of this encounter Advance Directives [...] Advance Directives occurred with: Patient Care Teams Pain Medicine Physician Relationship Specialty Start Date End Date Velasquez Valencia MD PCP - General Family Medicine 09/09/22 documented as of this encounter
--- OUTSIDE RECORDS SUMMARY | 2024-12-22 12:54 | External Medical Summary | Summary of Care ---
Author Name Unknown Organization [facility] Address [address] [facility] [place] [address] Phone [phone] Care Team Providers Care Clinical Nurse Occupational Medicine Name Role Phone Velasquez Valencia MD Primary Care Provider +1- [phone] Reason for Visit * Reason Onset Date Comments Advice 08/10/2024 Encounter Details Date Type Department Care Team ([facility] st Contact Info) Description 08/10/2024 Telephone [facility] DEPT CLOSED - 10/05/24 [address] [facility] [place] [address] Velasquez Valencia MD [address] [place] [address] [place] [address] Advice Allergies Active Allergy Reactions Criticality Noted Date Comments Pioglitazone 07/19/2024 Cefaclor Unknown 07/26/2018 As child Empagliflozin Other (Please comment) 05/16/2021 DKA with hospitalization Nsaids High 04/19/2019 Gastric problems Other Reaction(s): gastroparesis, kidney problems, use with caution : hx esophagus damage documented as of this encounter (statuses as of 11/09/2024) Medications Ondansetron HCl 4 MG Oral Tablet Take 1 Tablet by mouth every 8 hours as needed for Nausea. 20 Tablet 11/05/2023 11:40 AM EST 11/05/2023 Active BD Pen Needle Short U/F 31G X 8 MM (Insulin Pen Needle)Indicati ons:Type 2 diabetes mellitus with hemoglobin A1c goal of less than 7.0% (HCC) Use to inject insulin 5 times daily 500 Each 3 11/09/2024 12:18 PM EST 01/19/2024 Active Polyethylene Glycol 3350 17 GM/SCOOP Oral Powder (Miralax) Take 1 scoop daily in 8 ounces of water. 510 g 5 04/21/2024 Active OneTouch Delica Lancets 33GIndications: Type 2 diabetes mellitus with hemoglobin A1c goal of less than 7.0% (HCC) Use to check blood sugars once daily as needed 100 Each 05/10/2024 5:28 PM EDT 05/09/2024 Active Dexcom G6 SensorIndicatio ns:Type 2 diabetes mellitus with hemoglobin A1c goal of less than 7.0% (HCC) Use as directed every 10 days. 9 Each 5 09/21/2024 11:52 AM EST 07/18/2024 Active Dexcom G6 TransmitterIndi cations:Type 2 diabetes mellitus with hemoglobin A1c goal of less than 7.0% (HCC) Use as directed. Change every 90 days 1 Each 5 10/04/2024 11:12 AM EST 07/18/2024 Active documented as of this encounter (statuses as of 11/09/2024) Active Problems Problem Noted Date Diagnosed Date Chronic diastolic congestive heart failure 11/06 Jhaidwn-Txwvk-Qsuef disease 11/06/2024 Coronary artery disease invo lving [place] coronary artery of [place] heart without angina pectoris 10/17/2024 Well adult [...] as of this encounter (statuses as of 11/09/2024) Resolved Problems Problem Noted Date Diagnosed Date [...] as of this encounter (statuses as of 11/09/2024) Immunizations Name Administration Dates Next Due COVID-19 mRNA, LNP-s, No Pre serve, 2-Dose Series ([employer]) 10/21/2021,03/01/2021,02/07/2021 H1N1 2009 Influenza, IM 11/04/2009 Pneumococcal Conjugate Vacci ne, 20-valent ([id number]) 07/09/2023 Pneumococcal Polysaccharide PPV23 (Pneumovax) 11/03/2015,02/09/2006 Seasonal [...] of Assessment Author Yes 04/10/2024 9:27 PM Ailcia Lazaro RN * Because of a physical, [...] Miscellaneous Notes * Telephone Encounter - Devora Benntet LPN - 08/10/2024 11:40 AM EDT Patient's calling back to check on the status of the message. She is upset that nobody has called her back. Advised of the message from Dr. Valencia. iN is aware and verbalizes understanding. * Telephone Encounter - Velasquez Valencia MD - 08/10/2024 10:15 AM EDT We have reviewed this a few times. I cannot directly admit him to the hospital. He has been evaluated recently at [facility] ED, [facility] ED and [facility] and they have not found a reason to admit him on those visits. If pt and Ni feel that something has changed, he can return to the ED for repeat evaluation - but I cannot promise that he will be admitted. It would depend what the evaluation shows. There is not a GI motility expert in our area and I am not aware of one at [place]. I reached outto Dr Jones for suggestions and he indicated that he does not have much success with pt's seeing motility specialists for gastroparesis. His main suggestion was to try and limit the meds that could be contributing (which is what we started to do). He also suggested that he be set up for a GI propeller mechanic (although this would be for routine suggestions and not necessarily to help with the acute situation). It sounds from the message that they are concerned that there is something urgent beyond the gastroparesis - so repeat ED is the way to address that. [facility] or [facility] would be my suggestion. * Telephone Encounter - Edie Harper LPN - 08/10/2024 9:25 AM EDT Patients girlfriendNi is calling. Patient has gastroparesis. Bp is 193/107 HR 116 Sugar is 286. Has not eaten all week. Shaking all over. Ni, girlfriend, reports it is his nerves from the pain. He is having stomach pain that goes around to his kidneys. He only voids once or twice a day. Rates pain as 7 out of 10. Goes across his abdomen. Having nausea off and on. No emesis Had him to the Er last 3 weekends in the row. Done GI, blood work, CT scan. Patient is ordered Haloperidol for GI symptoms. It is not helping at all. He is miserable. Wants to know what to do. He is also a recent left bka Called the office. Given the information to Fadia. She will let Dr. Clark know and call the patientback. * Telephone Encounter - Fadia Boyer LPN - 08/10/2024 9:01 AM EDT Note placed on provider desk to check encounter. * Telephone Encounter - Jovanny Azul LPN - 08/10/2024 8:44 AM EDT Pt's EC Ni is calling. States that what the pt really needs is admitted to the hospital. Pt has not ate in 3 days. Is having a lot of stomach pain. Pt's HR and BP does go up because of the stomach/back pain the pt gets. Is not sure what the readings are but will obtain these and call back once she gets home. Historically- Pt becomes agitated due to the pain. Does vomit stomach acid. Entire body shakes from his nerves. Hot showers help with stomach pain a little but does not last long. Thinks that there is more than gastroparesis going on. States that she thinks its maybe a blockage or twist in the pt's bowels. Pt is not taking any narcotics and is taking the medications that was prescribed for his stomach. Is asking if there are any doctors local to [place] that specialize in the pt's condition or should she take pt back to [facility] to see if they will admit him? States that something has to happen today. Does not want to wait until tomorrow. Called PCP office, spoke with Fadia and made her aware. Please advise. * Telephone Encounter - Sumaya Jiménez OSA - 08/10/2024 8:37 AM EDT Reason for patient's call: stomach issue questions Caller was transferred to jovanny at the nurse line. documented in this encounter Plan of Treatment Upcoming Encounters Date Type Department Care Team (Late st Contact Info) Description 11/15/2024 8:00 AM EST Office Visit Cardiology, [facility] [address] [place] [address] Sweta Loving CRNP [address] [place], [place] [address] [address] 11/17/2024 8:40 AM EST Office Visit Nutrition & Weight Management, [facility] [address] [place] [address] Thao Lemus PA-C [address] [place] [address] 11/17/2024 9:30 AM EST Nurse Only Nutrition & Weight Management, [facility] [address] [place] [address] Funk, Nutrition Ed Class 1 [facility] 132 [place] [address] 11/21/2024 1:00 PM EST Office Visit Sleep Disorders Medicine Jerzy Reyes [address] [place] [phone] Cally Hare MD [address] [facility] [place] [address] 11/23/2024 8:00 AM EST Office Visit Family Practice, [facility] [phone] Velasquez Valencia MD 226 [place] [address] 11/23/2024 8:30 AM EST Office Visit [facility], [address] [place] [address] [place] [address] 01/29/2025 9:30 AM EDT Imaging Radiology [address] [facility] [place] [phone] 07/09/2025 10:00 AM EDT Office Visit Pulmonary Medicine, [facility] [address] [facility] [place] [address] Vishal Wallace MD [address] [place] [address] Scheduled Procedures Name Priority Associated Diagnoses Date/Ti [...] 04/19/2024 DISCUSS TOBACCO CESSATION (REFER TO SMARTSET #9121) 07/19/2025 07/19/2024, 10/16/2022 Diabetic Eye Exam 09/22/2025 [...] this encounter Medical Devices Implanted Type Area Continuous Pickling Line Pickler Helper Device Identifier Shelf Expiration Date Model / Serial / Lot Suture [place] Dbl Load 4.75mm - [id number] Implanted:Qty: 1 on 12/01/2019 by Judith Condon, at [facility] Right: Shoulder [employer] 07/17/2021 AR-2324BCT -2 / / [id number] Suture [place] Dbl Load 5.5mm - [id number] Implanted:Qty: 1 on 12/01/2019 by Judith Condon, at [facility] Right: Shoulder [employer] 09/16/2021 AR-2323BCT -2 / / [id number] documented as of this encounter Advance Directives [...] Advance Directives occurred with: Patient Care Teams Clinical Nurse Occupational Medicine Relationship Specialty Start Date End Date Velasquez Valencia MD PCP - General Family Medicine 09/09/22 documented as of this encounter
--- OUTSIDE RECORDS SUMMARY | 2024-12-22 12:54 | External Medical Summary | Summary of Care ---
Author Name Unknown Organization [facility] Address [address] [facility] [place] [address] Phone [phone] Care Team Providers Care Spot Cleaner Name Role Phone Velasquez Valencia MD Primary Care Provider +1- [phone] Reason for Visit * Reason Onset Date Comments Nurse Documentation 11/13/2024 Encounter Details Date Type Department Care Team (Late st Contact Info) Description 11/13/[address] [facility] [address] [facility] [place] [address] Velasquez Valencia MD 226 [place] [address] Nurse Documentation Allergies Active Allergy Reactions [...] 2 times a day. Active Omnipod 5 [id number] Pods Gen 5Indications:Typ e 2 diabetes mellitus [...] Chronic diastolic congestive heart failure 01/20 /2025 Kdxcsem-Qvjcm-Tnesz disease 11/06/2024 Coronary artery disease invo lving [place] coronary artery of [place] heart without angina pectoris 10/17/2024 Well adult [...] mRNA, LNP-s, No Pre serve, 2-Dose Series ([place]) 10/21/2021,03/01/2021,02/07/2021 H1N1 2009 Influenza, IM 11/04/2009 Pneumococcal Conjugate Vacci ne, 20-valent ([id number]) 07/09/2023 Pneumococcal Polysaccharide PPV23 (Pneumovax) 11/03/2015,02/09/2006 Seasonal [...] Dr. Velasquez Valencia Prescription refill received from [facility] and FAXED Received Fax for BFPROVIDERS: Dr. Velasquez Valencia PT PLAN OF CARE/EVALUATION received from [facility] and FAXED documented in this encounter Plan of Treatment Upcoming Encounters Date Type Department Care Team (Late st Contact Info) Description 11/15/2024 8:00 AM EST Office Visit Cardiology, [address] [place] [address] Sweta Loving CRNP [address] [facility] [place] [phone] 11/21/2024 1:00 PM EST Office Visit [facility] [address] [facility] [place] [phone] Cally Hare MD 400 [facility] [place] [address] 11/23/2024 8:00 AM EST Office Visit Family Practice, [facility] [phone] Velasquez Valencia MD 226 [facility] [address] 11/23/2024 8:30 AM EST Office [address] [phone] Sharad [address] [address] 01/29/2025 9:30 AM EDT Imaging Radiology [facility] 1st [facility] [address] [place] [phone] 07/09/2025 10:00 AM EDT Office Visit Pulmonary Medicine, [facility] [address] [place] [address] Vishal Wallace MD [address] [facility] [place] [address] Scheduled Procedures Name Priority Associated Diagnoses Date/Ti [...] this encounter Medical Devices Implanted Type Area Social Contact Worker Device Identifier Shelf Expiration Date Model / Serial / Lot Suture [place] Dbl Load 4.75mm - [id number] Implanted:Qty: 1 on 12/01/2019 by Judith Condon, DO at [facility] Right: Shoulder [employer] 07/17/2021 AR-2324BCT -2 / / [id number] Suture [place] Dbl Load 5.5mm - [id number] Implanted:Qty: 1 on 12/01/2019 by Judith Condon, at OR [facility] Right: Shoulder [employer] 09/16/2021 AR-2323BCT -2 / / [id number] documented as of this encounter Advance Directives [...] Advance Directives occurred with: Patient Care Teams Spot Cleaner Relationship Specialty Start Date End Date Velasquez Valencia MD PCP - General Family Medicine 09/09/22 documented as of this encounter
--- NOTE | 2024-12-22 15:31 | Hospitalist Progress Note ---
Date of Service December 22, 2024 Assessment & Plan (1) Chest pain: Plan: Atypical chest pain Likely due to uncontrolled hypertension, bronchitis Likely sleep apnea, generalized pain likely contributing to uncontrolled blood pressure Moderate CAD left coronary artery anatomy without obstruction on diagnostic cardiac cath in Sep 2024 --Troponin negative --EKG showed no acute changes when compared to prior Continue losartan, metoprolol Also on terazosin Added amlodipine 5 mg daily Continue aspirin, statin Blood pressure variable Acute bronchitis Chest CTA showed no pneumonia, PE Respiratory biofire negative Empirically started on doxycycline DAMION Currently not using CPAP Will obtain nocturnal oximetry study Need sleep study as outpatient DM II--Uncontrolled ? Diet compliance was on Insulin pump Hold PO meds Continue Insulin while hospitalized Glycemic pharmacist consulted Monitor BGs Chronic diastolic heart failure (EF 55 to 60%, TTE 2023): Currently no signs of volume overload Monitor volume status closely Resume home diuretics as able Other chronic conditions: Hyperlipidemia, on statin COPD/RLD, No signs of acute exacerbation PE/DVT completed anticoagulation treatment NAFLD chronic anemia intellectual disability as per records ongoing tobacco abuse Continue home medications as able DVT Px: Lovenox SQ Code Status Full code Admission and Anticipated Discharge Date Admission Date: December 21, 2024 Subjective Patient is seen and examined at bedside States having cough and chest discomfort Also reports left LE stump pain, generalized body ache Denies any dyspnea, nausea, vomiting, abdominal pain but feels tired No other complaints today Review of Systems Review of Systems: All systems reviewed & are unremarkable except as noted in Subjective Physical Exam Physical Exam: Physical Exam: Vitals signs as noted above General Appearance:Obese, no apparent distress Head: normocephalic, Atraumatic Eyes: normal inspection, EOMI Neck: supple, Trachea midline Respiratory/Chest: Decreased breath sounds, CTA, No accessory muscle use Cardiovascular: S1, S2, No murmur Abdomen/GI:Soft, Non tender, Bowel sounds present Extremities/Musculoskeletal:normal inspection, no edema, Left AKA stump Neurologic/Psych:AAOX3, grossly no focal neurological deficits Skin: normal color, warm Results & Data Results & Data Vital Signs (Past 12 Hours) Vital Signs Temp Pulse Pulse Resp BP Pulse Ox O2 Del Method 12/22/24 11:07 36.8 C 94 H 17 164/81 H 92 Nasal Cannula 12/22/24 07:39 36.9 C 92 H 20 161/80 H 90 Room Air 12/22/24 06:21 92 H O2 Flow Rate 12/22/24 11:07 1 12/22/24 07:39 12/22/24 06:21 Laboratory Results Short CBC 12/21/24 12/22/24 Range/Units 19:15 05:19 WBC 7.21 8.07 (4.8-10.8) K/ul Hgb 12.8 L 11.5 L (14.0-18.0) g/dl Hct 39.7 L 37.1 L (42.0-52.0) % Plt Count 244 226 (130-400) K/uL BMP 12/21/24 12/22/24 19:15 05:19 Sodium 139 137 Potassium 3.6 4.6 D Chloride 100 100 Carbon Dioxide 33 H 30 BUN 36 H 35 H Creatinine 1.12 1.15 Glucose 160 H 255 H Calcium 10.3 9.5 Liver Function 12/21/24 Range/Units 19:15 Total Bilirubin 0.4 (0.2-1.0) mg/dl AST 16 (13-39) U/L ALT 18 (7-52) U/L Alkaline Phosphatase 79 (34-104) U/L Albumin 4.1 (3.4-5.0) gm/dl (1) Chest pain Chest pain type: unspecified Qualified Code(s): R07.9 - Chest pain, unspecified
[2024-12-22] MEDS ORDERED: PHARMACY GLYCEMIC MGMT CONSULT PRN (15:44)
[2024-12-22] MEDS: LANTUS PER UNIT CHARGE SQ ONE (20:20)
[2024-12-22] MEDS: HYDROmorphone INJ 1 MG/ML SYRINGE IV PRN (20:25)
[2024-12-22] MEDS: ATORVASTATIN 20 MG TAB PO SCH (20:30)
[2024-12-22] MEDS: FAMOTIDINE 20 MG TAB PO SCH (20:42)
[2024-12-23 07:27] LABS: Hematocrit (blood only) 36.9 % (42.0-52.0); Hemoglobin 11.2 g/dl (14.0-18.0); Mean Corpuscular Hemoglobin 25.7 pg (25.0-34.0); Mean Corpuscular Hgb Conc 30.4 g/dL (32.0-36.0); Mean Corpuscular Volume 84.8 fL (80.0-100.0); Mean Platelet Volume 9.3 fL (9.4-12.4); Platelet Count 223 K/uL (130-400); RDW Coefficient of Variation 14.8 % (11.5-14.5); RDW Standard Deviation 45.4 fL (36.4-46.3); Red Blood Count 4.35 M/uL (4.70-6.10); White Blood Count 8.15 K/ul (4.8-10.8)
[2024-12-23 07:56] LABS: Creatinine Clr Calc Pharmacy 82.6 ml/min
[2024-12-23 07:57] LABS: BUN Creatinine Ratio 30.9 (10-20); Calcium 9.1 mg/dl (8.6-10.3); Magnesium 1.9 mg/dl (1.7-2.4); Potassium 5.3 mmol/L (3.5-5.1)
[2024-12-23 08:17] LABS: Estimated Average Glucose 266 mg/dl; Hemoglobin A1C 10.9 % (4.5-5.6)
[2024-12-23] MEDS ORDERED: LANTUS PER UNIT CHARGE SQ SCH (09:00)
[2024-12-23] MEDS: amLODIPine BESYLATE 5 MG TAB PO SCH (09:40)
[2024-12-23] MEDS: LANTUS PER UNIT CHARGE SC ONE (09:41)
[2024-12-23 13:25] LABS: BUN Creatinine Ratio 32.1 (10-20); Calcium 9.1 mg/dl (8.6-10.3); Creatinine Clr Calc Pharmacy 87.6 ml/min; Potassium 5.1 mmol/L (3.5-5.1)
--- NOTE | 2024-12-23 13:27 | Cardiology Consultation ---
Date of Consultation December 23, 2024 Assessment & Plan (1) Atypical chest pain: (2) HTN, goal below 130/80: (3) Bronchitis: (4) CAD (coronary artery disease): Plan Patient admitted several days ago with worsening SOB, cough, wheeze, and intermittent chest pain. Uncontrolled HTN on admission. Non compliance with home meds suspected. Found to have probable bronchitis. Respiratory panel negative. Started on antibiotics and nebulizers. Symptoms have slowly improved. Cardiology consulted due to persistent chest tightness. Worse with coughing. HS troponin negative x3 since admission. multiple EKG's demonstrating NSR, no acute ischemic changes. He recently underwent outpatient cardiac cath Oct 13, 2024 which demonstrated mild/moderate non obstructive disease. Med management recommended. Given the fact that his HS troponin has been unremarkable, without acute EKG ch anges and recent cath without obstructive disease, its likely his symptoms are non cardiac. Would recommend ongoing medical management for non obstructive CAD including ASA, statin. Improved BP support recommended and since admission his BP has improved with oral home medications -Continue losartan 50 mg BID -Continue amlodipine 5 mg daily. -continue Terazosin 1 mg daily at night -continue metoprolol -IF needed for additional BP support, could trial low dose isosorbide 30 mg in the future. Nocturnal oximetry overnight demonstrated hypoxia - Needs CPAP. Further recommendations pending discussion and evaluation with Dr. Boyd I spent a total of 60 minutes on the date of service in preparation, delivery, and documentation of the care provided to this patient, excluding any time spent in the performance of separately billed services. Diane Grove PA-C Department of Cardiology, [facility] This chart was completed in part utilizing Speech Voice Recognition Software. Grammatical errors, random word insertions, pronoun errors, and incomplete sentences are an occasional consequence of this system due to software limitations, ambient noise, and hardware issues. Any formal questions or concerns about the content, text, or information contained within the body of this dictation should be directly addressed to the provider for clarification. Supervising Physician Co-Signing Physician Notes I have reviewed the advanced practitioner's documentation on the date of service referenced in note, and I agree with, and take responsibility for the plan of care. I spent a total of [30] minutes coordinating, documenting, and providing care for this patient excluding time spent in the performance of separately billed services or time spent by another provider. 49 yr old with COPD, obstructive sleep apnea noncompliance with CPAP history of PE in the past,Obesity, diabetes mellitus, heart failure with preserved ejection fraction. Cardiac cath September 2024 showed mid LAD 40% FFR negative for hemodynamically significant lesion. Admitted with worsening shortness of breath cough and wheezing being treated for bronchitis. Elevated blood pressure. Atypical chest pain troponins negative no acute EKG changes Continue with blood pressure control add Imdur 30 mg History of Present Illness Reason for Consultation: Chest pain Requesting Physician: Ronnie Hospitalist Attending Physician: Dr. Boyd History of Present Illness Patient is a 49 year old male who presented to [facility] on 12/21/24 with complaints of worsening SOB and atypical chest pain. Diagnosed with probable viral bronchitis and HTN urgency due to non compliance with outpatient medications. Cardiology consulted for persistent chest "tightness" Since admission, EKG demonstrating normal sinus rhythm without ischemic changes. HS troponin negative x 3 since admission. Last confinement September 2024 for chest pain in the setting of abnormal outpatient stress test. Cardiac cath revealed mild to Moderate CAD left coronary artery anatomy without obstruction. Med management recommended. At time of consult, patient resting in bed comfortably. Ongoing cough reported with persistent "chest tightness", worse with coughing and wheezing. History includes: Mild/mod non obstructive CAD per cath in Sep 2024 - 50% prox LAD, 50% mid LAD; 30-40% Circumflex - med management recommended Chronic diastolic congestive heart failure, HFpEF Hypertension, hypertensive heart disease, history of hypertensive urgency Dyslipidemia Type 2 diabetes mellitus Gastroparesis Neuropathy Charcot foot Status post below-knee amputation on the left Gastroparesis IBS GERD/esophagitis History of pancreatitis Chronic anemia Obstructive sleep apnea, untreated History of DVT/PE Nonalcoholic fatty liver disease Morbid obesity Allergies Allergy/AdvReac Type Severity Reaction Status Date / Time cefaclor [From Ceclor] Allergy Unknown childhood Verified 11/14/24 12:17 allergy ? Cephalosporins Allergy Unknown Unknown Verified 11/14/24 12:17 empagliflozin AdvReac Unknown put me Verified 11/14/24 12:17 [From Jardiance] into ketoacidosis? NSAIDS (Non-Steroidal AdvReac Unknown use with Verified 11/14/24 12:17 Anti-Inflamma caution : hx esophagus damage Home Medications Medication Instructions Recorded Confirmed Type dicyclomine 10 mg capsule 10 mg PO QID PRN Diarrhea 05/01/20 12/21/24 History atorvastatin 20 mg tablet 20 mg PO HS 30 days #30 tabs 09/17/24 12/21/24 Rx famotidine 20 mg tablet 20 mg PO HS 30 days #30 tabs 09/17/24 12/21/24 Rx losartan 50 mg tablet 50 mg PO BID 30 days #30 tabs 09/17/24 12/21/24 Rx omeprazole 40 mg capsule,delayed 40 mg PO DAILYBB 30 days #30 caps 09/17/24 12/21/24 Rx release terazosin 1 mg capsule 1 mg PO HS 30 days #30 caps 09/17/24 12/21/24 Rx metoprolol succinate 100 mg 100 mg PO BID 09/30/24 12/21/24 History tablet,extended release 24 hr polyethylene glycol 3350 17 gram 17 g PO DAILY PRN Constipation 09/30/24 12/21/24 History oral powder packet haloperidol 1 mg tablet 1 mg PO QAM PRN gastroparesis 10/10/24 12/21/24 History symptoms metoprolol succinate 25 mg 25 mg PO BID #60 tabs 10/12/24 12/21/24 Rx tablet,extended release 24 hr aspirin 81 mg tablet,delayed 81 mg PO QAM 12/21/24 12/21/24 History release metformin 500 mg tablet,extended 500 mg PO QAM 12/21/24 12/21/24 History release 24 hr spironolactone 25 mg tablet 50 mg PO DAILY 12/21/24 12/21/24 History torsemide 20 mg tablet 20 mg PO QPM 12/21/24 12/21/24 History Patient History Medical History Chronic diastolic heart failure Volume overload Arthritis Low magnesium level History of RSV infection & flu a few months ago. Tachycardia chronic high heart rate - unknown etiology - a few months ago increased dose of metoprolol. Rhinovirus dx May 23 [facility] & another illness dx - ? name of /antibiotic and inhalers for. feeling better: only symptom : sore throat. COPD (chronic obstructive pulmonary disease) ? dx of Peripheral neuropathy Diabetes mellitus, type 2 Hypertension Tobacco use Restrictive lung disease Elevated liver function tests History of DVT (deep vein thrombosis) "years ago">no known cause Tussive syncope "occurred only one time, no recent issues" Esophagitis Osteoarthritis Hx of pancreatitis resolved GERD (gastroesophageal reflux disease) Cardiac murmur A CHILD Erectile dysfunction MRSA (methicillin resistant Staphylococcus aureus) carrier over 2 yrs ago>"not sure where it was" Intellectual disability Obstructive sleep apnea cpap Obesity IBS (irritable bowel syndrome) History of ventricular tachycardia "nonsustained" Surgical History History of appendectomy 02/10/2023 History of reduction of nasal fracture 09/25/21-Dr. Garcia Status post incision and drainage LLE History of shoulder surgery right-2019 H/O foot surgery LEFT-2018 History of arthroscopy LEFT [id number] History of esophagogastroduodenoscopy (EGD) History of colonoscopy with most recent attempt: failed prep. Told would need a 2 day prep prior to colonoscopy in Sep 2023. History of tooth extraction History of tonsillectomy and adenoidectomy 1979 Family History Brother Family history of diabetes mellitus Environmental allergies Asthma Mother Family history of diabetes mellitus Hypertension Environmental allergies Father Family history of diabetes mellitus Hypertension Heart disease Grandfather (Paternal) Lung cancer smoker Aunt Bleeding disorder Other No family history of adverse response to anesthesia Social History Smoking Status: Current every day smoker Tobacco Type: Cigarettes Age Started Using Tobacco: 14; Cigarettes Per Day: 20; Second Hand Exposure: No; Do You Dip or Chew Tobacco: No; Hx Alcohol Use: Yes Alcohol type: beer Alcohol Intake Frequency: Monthly or Less Alcohol Intake Frequency Comment: seldom, a couple times per year if that per pt Hx Substance Use: No Preferred Language: French Communication Ability: Effective Welt Beater Required: No Beliefs That Will Affect Care: None marital status: / marital status details: single at this time Current Living Situation: Family Current Living Situation Comment: Lives with family department traffic freight router and his girlfriend department traffic freight router per patient. 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 other: girlfriend able to assist with dressing changes and care as needed Feels Safe at Home: Yes Diet: diabetic during the past year weight has: remained stable Assistive Devices: Wheelchair Review of Systems Review of Systems: All systems reviewed & are unremarkable except as noted in HPI & below Physical Exam Constitutional: WD/WN, vitals as above no acute distress (Difficulty staying awake during exam/conversation) Neck: + thick neck Respiratory: + cough; no labored breathing Auscult ation: + diminished lung sounds and + rhonchi Cardiovascular: Rate/Rhythm: regular rate and regular rhythm Heart Sounds: normal S1 and normal S2; no murmur (No audible murmur - distant heart sounds) Vessels: no JVD Extremities: no edema (left BKA) Gastrointestinal (Abdomen): normal bowel sounds, soft, nontender, no hepatosplenomegaly Musculoskeletal: no cyanosis or clubbing, extremities motor strength 5/5 Neurologic: PERRL, EOMI, accommodation nl, no face palsy, no dysarthria Results & Data Vital Signs (Past 12 Hours) Vital Signs Temp Pulse Pulse Pulse Resp BP Pulse Ox 12/23/24 12:52 37 C 85 20 124/69 91 12/23/24 07:39 36.7 C 84 19 145/74 H 92 12/23/24 02:52 36.8 C 79 20 117/67 94 12/23/24 02:23 84 84 Pulse Ox Pulse Ox O2 Del Method O2 Del Method O2 Del Method O2 Flow Rate O2 Flow Rate 12/23/24 12:52 Nasal Cannula 3 12/23/24 07:39 Nasal Cannula 3 12/23/24 02:52 Nasal Cannula 12/23/24 02:23 79 L 96 Nasal Cannula Nasal Cannula 2 O2 Flow Rate 12/23/24 12:52 12/23/24 07:39 12/23/24 02:52 12/23/24 02:23 3 Laboratory Results CBC 12/23/24 Range/Units 06:55 WBC 8.15 (4.8-10.8) K/ul RBC 4.35 L (4.70-6.10) M/uL Hgb 11.2 L (14.0-18.0) g/dl Hct 36.9 L (42.0-52.0) % Plt Count 223 (130-400) K/uL Comprehensive Metabolic Panel 12/23/24 12/23/24 Range/Units 06:55 12:45 Sodium 135 L 134 L (136-145) mmol/L Potassium 5.3 H 5.1 (3.5-5.1) mmol/L Chloride 100 100 (98-107) mmol/L Carbon Dioxide 30 30 (21-32) mmol/L BUN 54 H 53 H (6-23) mg/dl Creatinine 1.75 H D 1.65 H (0.6-1.4) mg/dl Glucose 223 H 205 H (70-99(Fasting)) mg/dl Calcium 9.1 9.1 (8.6-10.3) mg/dl Intake and Output 12/22/24 12/23/24 12/23/24 22:59 06:59 14:59 Intake Total 1100 / 1700 400 / 400 Output Total 1800 / 1800 Balance 1100 / 200 -1400 / -1400 Intake: IV 1000 / 1000 Sodium Chloride 0.9% 1,000 ml @ 1000 / 1000 60 mls/hr IV .[id number] ONE Rx#: [id number] Oral 100 / 700 400 / 400 Output: Urine 1800 / 1800 Other: # Unmeasured Voids 1 Weight 165.7 kg 165.7 kg Weight Measurement Method Built in [facility] Diagnostic Findings Telemetry reviewed: NSR, no arrhythmias EKG reviewed form 12/23/24: NSR, normal EKG no acute changes Chest X-Ray 12/21/24 19:18 IMPRESSION: Poor inspiratory effort, similar to the previous examination. No acute cardiopulmonary process or significant alteration from the prior examination. Electronically signed by: Elmer Joes MD 12/21/24 21:09 PM Chest CTA 12/21/24 22:02 IMPRESSION: 1. Accounting for limitations with respiratory artifact, there is no evidence for pulmonary embolism. Several distal subsegmental pulmonary artery segments are of limited diagnostic quality. No CT evidence for right heart strain. 2. No definite focal airspace consolidation. Central peribronchial cuffing is minimally more prominent from the prior examination. This may represent chronic changes or subtle bronchitis. No bronchial obstruction or postobstructive pneumonitis. No pleural effusion or pneumothorax. Electronically signed by: Elmer Jose MD 12/22/24 00:39 AM 12/22/24 00:27 AM Prior data reviewed: Echo report reviewed dated 09/17/24: LVEF normal at 55-60% Grade I diastolic dysfunction No significant valvular disease Cardiac cath report reviewed dated Oct 13, 2024: Coronary Anatomy Dominant: Right Left Main (% Stenosis): Normal LAD (% Stenosis): Proximal (50% calcified) and Mid (50% calcified) D1 (% Stenosis): Ostial (100% DIRECTOR OF DESIGN) Circumflex (% Stenosis): Mid (30 to 40%) OM1 (% Stenosis): Normal OM2 (% Stenosis): Normal OM3 (% Stenosis): Proximal (30 to 40%) L PL1 (% Stenosis): Proximal (20 to 30%) RCA (% Stenosis): Normal (Scattered up to 20% plaques) R PDA (% Stenosis): Normal R PL1 (% Stenosis): Normal Ramus (% Stenosis): Normal (Less than 30%) Medications Administered Current Inpatient Medications Acetaminophen (Acetaminophen 325 Mg Tab) 650 mg PO QID PRN PRN Reason: pain/fever Stop: 01/20/25 22:05 Albuterol (Albut/Ipratrop 3mg/0.5mg Neb 3 Ml Vial) 3 ml NEB Q2H PRN; Protocol PRN Reason: sob wheeze Stop: 01/21/25 03:04 Amlodipine Besylate (Amlodipine Besylate 5 Mg Tab) [facility] Stop: 01/22/25 08:59 Last Admin: 12/23/24 09:40 Dose: 5 mg Amoxicillin/Clavulanate Potassium (Amoxicillin/Clavulanate 875 Mg Tab) 1 tab PO BIDM [facility]; Protocol Stop: 12/28/24 16:59 Aspirin (Aspirin 81 Mg Ectab) [facility] Stop: 01/21/25 08:59 Last Admin: 12/23/24 09:40 Dose: 81 mg Atorvastatin Calcium (Atorvastatin 20 Mg Tab) 20 mg PO [facility] Stop: 01/21/25 20:59 Last Admin: 12/22/24 20:30 Dose: 20 mg Dextrose (Dextrose 50% 50 Ml Syringe) 25 - 50 ml IV UD PRN; Protocol PRN Reason: Hypoglycemia Protocol Stop: 01/20/25 23:53 Famotidine (Famotidine 20 Mg Tab) 20 mg PO [facility] Stop: 01/21/25 20:59 Last Admin: 12/22/24 20:42 Dose: 20 mg Glucagon (Glucagon For Inj 1 Mg Vial) 1 mg SQ UD PRN; Protocol PRN Reason: Hypoglycemia Protocol Stop: 01/20/25 23:53 Glucose (Glucose 40% Gel 15 Gm Tube) 15 - 30 gm PO UD PRN; Protocol PRN Reason: Hypoglycemia Protocol Stop: 01/20/25 23:53 Glucose (Glucose 10 Tab/Tube) 4 - 8 tab PO UD PRN; Protocol PRN Reason: Hypoglycemia Protocol Stop: 01/20/25 23:53 Guaifenesin (Guaifenesin 600 Mg Tabcr) 600 mg PO Q12 [facility] Stop: 01/21/25 00:49 Last Admin: 12/23/24 09:40 Dose: 600 mg Heparin Sodium (Porcine) (Heparin Sod 5,000 Unit/0.5 Ml Vial) 5,000 units SQ Q8 [facility] Stop: 01/22/25 13:59 Hydromorphone HCl (Hydromorphone Inj 1 Mg/Ml Syringe) 1 mg IV Q6H PRN PRN Reason: Pain Stop: 01/05/25 15:24 Last Admin: 12/23/24 07:56 Dose: 1 mg Promethazine HCl (Phenergan) 12.5 mg in 50.5 mls @ 202 mls/hr IV Q6H PRN PRN Reason: Nausea And Vomiting Stop: 01/20/25 22:05 Insulin Aspart (Insulin Aspart Per Unit Charge) 0 units SC ACHS [facility] Stop: 01/21/25 00:14 Last Admin: 12/23/24 12:37 Dose: 21 units Insulin Glargine (Lantus Per Unit Charge) 0 units SC HS [facility]; Protocol Stop: 01/22/25 20:59 Lorazepam (Lorazepam 0.5 Mg Tab) 0.5 mg PO TID PRN PRN Reason: Anxiety Stop: 01/20/25 22:06 Losartan Potassium (Losartan Potassium 50 Mg Tab) 50 mg PO BID [facility] Stop: 01/21/25 08:59 Last Admin: 12/23/24 09:40 Dose: 50 mg Metoprolol Succinate (Metoprolol Succ 50mg Ext Rel Tab) 125 mg PO BID [facility] Stop: 01/21/25 08:59 Last Admin: 12/23/24 09:40 Dose: 125 mg Miscellaneous (Carbohydrates For Hypoglycemia ) 15 - 30 gm PO UD PRN PRN Reason: Hypoglycemia Protocol Stop: 01/20/25 23:53 Miscellaneous Information (Pharmacy Glycemic Mgmt Consult) 1 each N/A UD PRN; Protocol PRN Reason: Consult Stop: 01/21/25 15:43 Nystatin (Nystatin Powder 15gm Btl) 1 appln EXT BID [facility] Stop: 01/21/25 00:14 Last Admin: 12/23/24 09:39 Dose: 1 appln Oxycodone HCl (Oxycodone Hcl Ir 5 Mg Tab (Immediate Release)) 5 - 10 mg PO QID PRN PRN Reason: Pain Stop: 01/04/25 22:05 Last Admin: 12/22/24 07:55 Dose: 10 mg Pantoprazole Sodium (Pantoprazole 40 Mg Tab) 40 mg PO DAILYBB [facility] Stop: 01/21/25 06:29 Last Admin: 12/23/24 06:03 Dose: 40 mg Polyethylene Glycol (Polyethylene (Miralax) 17 Gm Pack) 17 gm PO DAILY PRN PRN Reason: Constipation Stop: 01/20/25 22:02 Terazosin HCl (Terazosin Hcl 1 Mg Cap) 1 mg PO HS [facility] Stop: 01/20/25 22:09 Last Admin: 12/22/24 20:29 Dose: 1 mg (4) CAD (coronary artery disease) Associated angina: without angina Coronary Disease-Associated Artery/Lesion type: [place] artery [place] vs. transplanted heart: [place] heart Qualified Code(s): I25.10 - Atherosclerotic heart disease of [place] coronary artery without angina pectoris
--- NOTE | 2024-12-23 14:35 | Hospitalist Progress Note ---
Date of Service December 23, 2024 Assessment & Plan (1) Chest pain: Plan: Atypical chest pain Likely due to uncontrolled hypertension, bronchitis Likely sleep apnea, generalized pain likely contributing to uncontrolled blood pressure Moderate CAD left coronary artery anatomy without obstruction on diagnostic cardiac cath in Sep 2024 --Troponin negative --EKG showed no acute changes when compared to prior --Limited echo pending Continue losartan, metoprolol Also on terazosin Added amlodipine 5 mg daily Continue aspirin, statin Appreciate cardiology input Acute bronchitis Chest CTA showed no pneumonia, PE Respiratory biofire negative Started on Augmentin Acute kidney injury Hyperkalemia--resolved Received IV fluids Diuretics on hold Monitor renal function Avoid nephrotoxic agents as able Urinating well per patient DAMION Currently not using CPAP --Nocturnal hypoxia Reviewed nocturnal oximetry study Need sleep study as outpatient Continue supplemental oxygen at bedtime DM II--Uncontrolled ? Diet compliance was on Insulin pump Hold PO meds Continue Insulin while hospitalized Glycemic pharmacist consulted Monitor BGs Chronic diastolic heart failure (EF 55 to 60%, TTE 2023): Currently no signs of volume overload Monitor volume status closely Resume home diuretics as able Other chronic conditions: Hyperlipidemia, on statin COPD/RLD, No signs of acute exacerbation PE/DVT completed anticoagulation treatment NAFLD chronic anemia intellectual disability as per records ongoing tobacco abuse Continue home medications as able DVT Px: Lovenox SQ Code Status Full code Admission and Anticipated Discharge Date Admission Date: December 21, 2024 Subjective Patient is seen and examined at bedside Reports sinus congestion, persistent chest pain left stump pain Noted rising creatinine levels Denies any dyspnea, nausea, vomiting, abdominal pain Review of Systems Review of Systems: All systems reviewed & are unremarkable except as noted in Subjective Physical Exam Physical Exam: Physical Exam: Vitals signs as noted above General Appearance:Obese, no apparent distress Head: normocephalic, Atraumatic Eyes: normal inspection, EOMI Neck: supple, Trachea midline Respiratory/Chest: Decreased breath sounds, CTA, No accessory muscle use Cardiovascular: S1, S2, No murmur Abdomen/GI:Soft, Non tender, Bowel sounds present Extremities/Musculoskeletal:normal inspection, no edema, Left AKA stump Neurologic/Psych:AAOX3, grossly no focal neurological deficits Skin: normal color, warm Results & Data Results & Data Vital Signs (Past 12 Hours) Vital Signs Temp Pulse Pulse Resp BP Pulse Ox O2 Del Method 12/23/24 13:24 79 12/23/24 12:52 37 C 85 20 124/69 91 Nasal Cannula 12/23/24 11:30 Nasal Cannula 12/23/24 07:39 36.7 C 84 19 145/74 H 92 Nasal Cannula 12/23/24 05:31 81 12/23/24 02:52 36.8 C 79 20 117/67 94 Nasal Cannula O2 Flow Rate 12/23/24 13:24 12/23/24 12:52 3 12/23/24 11:30 3 12/23/24 07:39 3 12/23/24 05:31 12/23/24 02:52 Laboratory Results Short CBC 12/23/24 Range/Units 06:55 WBC 8.15 (4.8-10.8) K/ul Hgb 11.2 L (14.0-18.0) g/dl Hct 36.9 L (42.0-52.0) % Plt Count 223 (130-400) K/uL BMP 12/23/24 12/23/24 06:55 12:45 Sodium 135 L 134 L Potassium 5.3 H 5.1 Chloride 100 100 Carbon Dioxide 30 30 BUN 54 H 53 H Creatinine 1.75 H D 1.65 H Glucose 223 H 205 H Calcium 9.1 9.1 (1) Chest pain Chest pain type: unspecified Qualified Code(s): R07.9 - Chest pain, unspecified
[2024-12-23] MEDS: HEPARIN SOD 5,000 UNIT/0.5 ML VIAL SQ SCH (14:46)
--- NOTE | 2024-12-23 14:52 | Pharmacy Report ---
Pharmacy Glycemic Short Note 2 - Date of Service December 23, 2024 - Glycemic Short BSG Results (Last 24 hours): 12/22/24 12/22/24 12/23/24 16:05 19:58 06:55 Glucose 223 H POC Glucose 221 H 244 H 12/23/24 12/23/24 12/23/24 07:27 11:36 12:45 Glucose 205 H POC Glucose 229 H 220 H OUTPATIENT ANTIDIABETIC REGIMEN: * metformin ER 500mg po daily * Insulin pump with aspart -max basal rate of 5.5 units/hr (132 units/24 hours). Temp basal-configured to use %. -Max bolus-30 units/bolus. Target glucose 130 mg/dL, correct above 140 mg/dL. Minimum glucose for calculation 70 mg/dL. -Insulin to carb ratio-3g of carbs. Correction factor-9mg/dL. Reverse correction function is ON. HbA1c: 11.2% on 10/11/24 ASSESSMENT: * 49 year old male admitted 12/21 with chest pain. Pharmacy has been consulted for glycemic management while he is admitted. * Fasting BSG yesterday morning was 290mg/dL. Patient was ordered 5 units of Lantus SQ x 1 and bolus insulin was initiated with fairly loose parameters. * BSGs remained elevated through the day yesterday ([phone]/dL). An additional 10 units of Lantus was ordered for last evening and parameters of the bolus insulin were tightened. * Fasting BSG this morning was 229mg/dL. Lantus 15 units SQ x 1 was ordered and a Lantus scale was started for HS (0, 5, or 10 units depending on BSG). * BSG still 220mg/dL at lunch today, so CR was tightened. * Based his home pump settings, will likely have to increase Lantus dose tomorrow and tighten parameters for bolus insulin. Will follow BSGs and make adjustments as necessary. PLAN FOR INPATIENT GLYCEMIC CONTROL: * Hold outpatient oral diabetes medications * Basal insulin * Lantus 15 units SQ total on 12/22, 15 units SQ x 1 this morning, Scale for HS ( hold for BSG < 150, 5 units for BSG 150-180, 10 units for BSG > 180) * Bolus insulin * NovoLog per scale ACHS or Q6hrs while NPO * Goal Range: Low 110 mg/dL - High 140 mg/dL * Correction Factor: 20 mg/dL/unit * Nutritional / Prandial insulin per carb ratio of 1 unit per 7 grams CHO consumed
[2024-12-23] MEDS: AMOXICILLIN/CLAVULANATE 875 MG TAB PO SCH (18:05)
[2024-12-23] MEDS: LANTUS PER UNIT CHARGE SC SCH (20:47)
--- NOTE | 2024-12-23 22:57 | Electrocardiogram Report ---
Test Reason : Blood Pressure : */* mmHG Vent. Rate : 84 BPM Atrial Rate : 84 BPM P-R Int : 156 ms QRS Dur : 98 ms QT Int : 374 ms P-R-T Axes : -2 29 62 degrees QTcB Int : 441 ms Normal sinus rhythm Normal ECG When compared with ECG of 21-Dec-2024 19:13, Incomplete right bundle branch block is no longer Present Confirmed by Brandin Guerra ([id number]) on 12/23/2024 10:57:12 PM Referred By: REFERRED SELF Confirmed By: Brandin Guerra
[2024-12-24] MEDS: DICLOFENAC SOD 1% GEL 100 GM TUBE EXT PRN (08:34)
[2024-12-24] MEDS: LANTUS PER UNIT CHARGE SC SCH (08:48)
[2024-12-24 10:30] LABS: Anion Gap 2 (3-11); BUN Creatinine Ratio 36.9 (10-20); Blood Urea Nitrogen 48 mg/dl (6-23); Calcium 9.5 mg/dl (8.6-10.3); Carbon Dioxide 31 mmol/L (21-32); Chloride 99 mmol/L (98-107); Creatinine Clr Calc Pharmacy 110.6 ml/min; Glucose 299 mg/dl (70-99(Fasting)); Sodium 132 mmol/L (136-145)
--- NOTE | 2024-12-24 10:37 | XRay Report ---
XR knee LT 3V CLINICAL HISTORY: pain COMPARISON: 05/27/2020 FINDINGS: There is interval below the knee amputation. No fracture or dislocation. No evidence of os teomyelitis. There is a stable 2.6 cm oval area of sclerosis at the distal shaft of the femur. There is progressive osteopenia. There are minimal degenerative changes. IMPRESSION: No acute findings. ACT 112: Negative or not required by law. Electronically signed by: Prasanth Morelos M.D. 12/24/2024 10:35 AM
[2024-12-24] MEDS: FUROSEMIDE INJ 20 MG/2 ML VIAL IV ONE (12:22)
[2024-12-24] MEDS: HYDROmorphone INJ 1 MG/ML SYRINGE IV PRN (12:31)
[2024-12-24] MEDS: traMADol HCL 50 MG TABLET PO PRN (14:03)
--- NOTE | 2024-12-24 14:39 | Hospitalist Progress Note ---
Date of Service December 24, 2024 Assessment & Plan (1) Chest pain: Plan: Atypical chest pain Likely due to uncontrolled hypertension, bronchitis Likely sleep apnea, generalized pain likely contributing to uncontrolled blood pressure Moderate CAD left coronary artery anatomy without obstruction on diagnostic cardiac cath in Sep 2024 --Troponin negative --EKG showed no acute changes when compared to prior --Limited echo: No wall motion abnormalities Continue losartan, metoprolol Also on terazosin Added amlodipine 5 mg daily Continue aspirin, statin Appreciate cardiology input Blood pressure improved Will likely discharge home tomorrow Acute bronchitis Chest CTA showed no pneumonia, PE Respiratory biofire negative Started on Augmentin Acute kidney injury Hyperkalemia Received IV fluids Oral diuretics on hold Monitor renal function Avoid nephrotoxic agents as able Will give a dose of IV Lasix today DAMION Currently not using CPAP --Nocturnal hypoxia Reviewed nocturnal oximetry study Need sleep study as outpatient Continue supplemental oxygen at bedtime DM II--Uncontrolled ? Diet compliance was on Insulin pump Hold PO meds Continue Insulin while hospitalized Glycemic pharmacist consulted Monitor BGs Chronic diastolic heart failure (EF 55 to 60%, TTE 2023): Currently no signs of volume overload Monitor volume status closely Resume home diuretics as able Other chronic conditions: Hyperlipidemia, on statin COPD/RLD, No signs of acute exacerbation PE/DVT completed anticoagulation treatment NAFLD chronic anemia intellectual disability as per records ongoing tobacco abuse Continue home medications as able DVT Px: Lovenox SQ Code Status Full code Admission and Anticipated Discharge Date Admission Date: December 21, 2024 Subjective Patient is seen and examined at bedside Continues to report chest discomfort, left stump pain Comfortable lying in bed during my encounter Creatinine levels better Denies any dyspnea, nausea, vomiting, abdominal pain Review of Systems Review of Systems: All systems reviewed & are unremarkable except as noted in Subjective Physical Exam Physical Exam: Physical Exam: Vitals signs as noted above General Appearance:Obese, no apparent distress Head: normocephalic, Atraumatic Eyes: normal inspection, EOMI Neck: supple, Trachea midline Respiratory/Chest: Decreased breath sounds, CTA, No accessory muscle use Cardiovascular: S1, S2, No murmur Abdomen/GI:Soft, Non tender, Bowel sounds present Extremities/Musculoskeletal:normal inspection, no edema, Left AKA stump Neurologic/Psych:AAOX3, grossly no focal neurological deficits Skin: normal color, warm Results & Data Results & Data Vital Signs (Past 12 Hours) Vital Signs Temp Pulse Pulse Resp BP BP Pulse Ox 03/09/25 13:36 12/24/24 13:00 80 12/24/24 11:29 36.9 C 82 20 143/78 H 95 12/24/24 07:10 36.9 C 85 20 119/65 91 12/24/24 05:31 84 12/24/24 04:22 36.6 C 87 19 115/51 L 83 L O2 Del Method O2 Flow Rate 12/24/24 13:36 Nasal Cannula 3 12/24/24 13:00 12/24/24 11:29 Nasal Cannula 3 12/24/24 07:10 Room Air 12/24/24 05:31 12/24/24 04:22 Room Air Laboratory Results BMP 12/24/24 12/24/24 09:55 11:00 Sodium 132 L Potassium TNP 5.5 H Chloride 99 Carbon Dioxide 31 BUN 48 H Creatinine 1.30 D Glucose 299 H Calcium 9.5 (1) Chest pain Chest pain type: unspecified Qualified Code(s): R07.9 - Chest pain, unspecified
--- OUTSIDE RECORDS SUMMARY | 2024-12-24 16:43 | External Medical Summary | Summary of Care ---
Author Name Unknown Organization [facility] Address [address] [facility] [place] [address] Phone [phone] Care Team Providers Care Machine Tool Designer Name Role Phone Velasquez Valencia MD Primary Care Provider +1- [phone] Reason for Visit * Reason Onset Date Comments Follow Up 09/22/2024 Encounter Details Date Type Department Care Team (Late st Contact Info) Description 09/[facility]/[address] [address] [facility] [place] [phone] Velasquez Valencia MD [address] [facility] [place] [address] Follow Up Allergies Active Allergy Reactions Criticality Noted Date Comments Pioglitazone 07/19/2024 Cefaclor Unknown 07/26/2018 As child Empagliflozin Other (Please comment) 05/16/2021 DKA with hospitalization Nsaids High 04/19/2019 Gastric problems Other Reaction(s): gastroparesis, kidney problems, use with caution : hx esophagus damage documented as of this encounter (statuses as of 12/23/2024) Medications Ondansetron HCl 4 MG Oral Tablet [...] directed every 10 days. 9 Each 5 12/20/2024 2:30 PM EST 07/18/2024 Active Dexcom G6 TransmitterIndi cations:Type 2 diabetes mellitus with hemoglobin A1c goal of less than 7.0% (HCC) Use as directed. Change every 90 days 1 Each 5 10/04/2024 11:12 AM EST 07/18/2024 Active Haloperidol 1 MG Oral Tablet (Haldol) Take 1 Tablet by mouth in the morning. 08/08/2024 Active Omeprazole 40 MG Oral Capsule Delayed Release (PriLOSEC) Take 1 Capsule by mouth in the morning. 90 Capsule 3 08/22/2024 Active Dicyclomine HCl 10 MG Oral Capsule [...] morning and 1 Tablet before bedtime. Active documented as of this encounter (statuses as of 12/23/2024) Active Problems Problem Noted Date Diagnosed Date COPD, group B, by GOLD 2017 classification 11/27 Overview: Per COPD GOLD Classification Chronic diastolic congestive heart failure 11/06 Utwzxng-Mrjja-Qqzwl disease 11/06/2024 Coronary artery disease invo lving [place] coronary artery of [place] heart without angina pectoris 10/17/2024 Well adult [...] as of this encounter (statuses as of 12/23/2024) Resolved Problems Problem Noted Date Diagnosed Date [...] as of this encounter (statuses as of 12/23/2024) Immunizations Name Administration Dates Next Due COVID-19 mRNA, LNP-s, No Pre serve, 2-Dose Series (Pfizer) 10/21/2021,03/01/2021,02/07/2021 H1N1 2008 Influenza, IM 11/04/2009 Pneumococcal Conjugate Vacci ne, 20-valent ([id number]) 07/09/2023 Pneumococcal Polysaccharide PPV23 (Pneumovax) 11/03/2015,02/09/2006 Seasonal [...] encounter Miscellaneous Notes * Telephone Encounter - Mle Walker LPN - 09/27/2024 11:23 AM EST I called [facility] and either Physical therapist was available and will call back. When PT calls back please inform her of the information from Dr. Valencia. * Telephone Encounter - Velasquez Valencia MD - 09/22/2024 10:50 AM EST Patient seen today for hospital follow-up. 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 Patient states that physical therapy requested he have us evaluate that swelling. Please call [facility] in [place] to speak with Rhea or Rosa and notify that I do not see anything I can treat differently. I do not believe there is infection. Do not believe he is in congestive heart failure. Would suggest that he continue to try to use compression and elevation. If they have any techniques to try to decrease the amount of swelling, that would also be appreciated. documented in this encounter Plan of Treatment Upcoming Encounters Date Type Department Care Team (Late st Contact Info) Description 12/29/2024 2:50 PM EDT Office Visit Pharmacy, [place] [address] [phone] [address] [address] 01/01/2025 2:20 PM EDT Office Visit [facility] [place] [phone] Velasquez Valencia MD [address] [facility] [place] [address] 01/29/2025 9:30 AM EDT Imaging Radiology [facility] [facility] [address] [place] [phone] 06/04/2025 9:30 AM EDT Office Visit Cardiology, [facility] [address] [place] [address] Sweta Loving CRNP [address] [place] [address] [place] [address] 07/09/2025 10:00 AM EDT Office Visit Pulmonary Medicine, [facility] [address] [place] [address] Vishal Wallace MD [address] [place] [address] Scheduled Procedures Name Priority Associated Diagnoses Date/Ti [...] this encounter Medical Devices Implanted Type Area White Sugar Supervisor Device Identifier Shelf Expiration Date Model / Serial / Lot Suture Garland Dbl Load 4.75mm - [id number] Implanted:Qty: 1 on 12/01/2019 by Judith Condon, at [facility] Right: Shoulder [employer] 07/17/2021 AR-2324BCT -2 / / [id number] Suture Garland Dbl Load 5.5mm - [id number] Implanted:Qty: 1 on 12/01/2019 by Judith Condon DO at [facility] Right: Shoulder [employer] 09/16/2021 AR-2323BCT -2 / / [id number] documented as of this encounter Additional Health [...] Directives occurred with: Patient Care Teams Machine Tool Designer Relationship Specialty Start Date End Date Velasquez Valencia MD PCP - General Family Medicine 09/09/22 documented as of this encounter
--- OUTSIDE RECORDS SUMMARY | 2024-12-24 16:43 | External Medical Summary | Summary of Care ---
Author Name Unknown Organization [facility] Address [address] [facility] [place] [address] Phone [phone] Care Team Providers Care Data Analytics Architect Name Role Phone Velasquez Valencia MD Primary Care Provider +1- [phone] Reason for Visit * Reason Onset Date Comments Nurse Documentation 12/22/2024 Encounter Details Date Type Department Care Team (Late st Contact Info) Description 12/22/20[facility] [address] [facility] [place] [phone] Velasquez Valencia MD [address] [facility] [place] [address] Nurse Documentation Allergies Active Allergy Reactions Criticality Noted Date Comments Pioglitazone 07/19/2024 Cefaclor Unknown 07/26/2018 As child Empagliflozin Other (Please comment) 05/16/2021 DKA with hospitalization Nsaids High 04/19/2019 Gastric problems Other Reaction(s): gastroparesis, kidney problems, use with caution : hx esophagus damage documented as of this encounter (statuses as of 12/22/2024) Medications Ondansetron HCl 4 MG Oral Tablet [...] 9 Each 5 12/20/2024 2:30 PM EST 4 Active Dexcom G6 TransmitterIndic ations:Type [...] 180 Capsule 3 5 Active Omnipod 5 [id number] Pods Gen 5Indications:Typ e 2 diabetes mellitus with hemoglobin A1c goal of less than 7.0% ([facility]) Use as directed. Change pod every 1 and 1/2 days 75 Each 3 12/14/2024 1:44 PM EST Active documented as of this encounter (statuses as of 12/22/2024) Active Problems Problem Noted Date Diagnosed Date COPD, group B, by GOLD 2017 classification 11/27 Overview: Per COPD GOLD Classification Chronic diastolic congestive heart failure 11/06 Lvxgxrz-Jlycr-Bupxm disease 11/06/2024 Coronary artery disease invo lving [place] coronary artery of [place] heart without angina pectoris 10/17/2024 Well adult [...] as of this encounter (statuses as of 12/22/2024) Resolved Problems Problem Noted Date Diagnosed Date [...] as of this encounter (statuses as of 12/22/2024) Immunizations Name Administration Dates Next Due COVID-19 mRNA, LNP-s, No Pre serve, 2-Dose Series ([email or web address]) 10/21/2021,03/01/2021,02/07/2021 H1N1 2009 Influenza, IM 11/04/2009 Pneumococcal Conjugate Vacci ne, 20-valent ([id number]) 07/09/2023 Pneumococcal Polysaccharide PPV23 (Pneumovax) 11/03/2015,02/09/2006 Seasonal [...] Encounter - Emily Wang MED ASSIST - 12/22/2024 2:03 PM EST Received Fax for BFPROVIDERS: Dr. Velasquez Valencia ORDER received from [facility] and FAXED documented in this encounter Plan of Treatment Upcoming Encounters Date Type Department Care Team (Late st Contact Info) Description 12/29/2024 2:50 PM EDT Office Visit Pharmacy, [place] [address] [facility] [place] [phone] Sharad [facility] [address] [place], [place] [address] [address] 01/01/2025 2:20 PM EDT Office Visit Family [facility], [place] [address] [place] [phone] Velasquez Valencia MD [address] [place] [place] [address] 01/29/2025 9:30 AM EDT Imaging [facility] [address] [facility] [place] [phone] 06/04/2025 9:30 AM EDT Office Visit Cardiology, [facility] [address] [facility] [place] [address] Sweta Loving CRNP [address] [place] [address] [place] [address] 07/09/2025 10:00 AM EDT Office Visit Pulmonary Medicine, [facility] [address] [facility] [place] [address] Vishal Wallace MD [address] [place] [address] Scheduled Procedures Name Priority Associated Diagnoses Date/Ti [...] 04/19/2024 DISCUSS TOBACCO CESSATION (REFER TO SMARTSET #[id number]) 07/19/2025 07/19/2024, 10/16/2022 Diabetic Eye Exam 09/22/2025 [...] this encounter Medical Devices Implanted Type Area Internal Communications Intern Device Identifier Shelf Expiration Date Model / Serial / Lot Suture [place] Dbl Load 4.75mm - [id number] Implanted:Qty: 1 on 12/01/2019 by Judith Condon DO at [facility] Right: Shoulder [employer] 07/17/2021 AR-2324BCT -2 / / [id number] Suture [place] Dbl Load 5.5mm - [id number] Implanted:Qty: 1 on 12/01/2019 by Judith Condon DO at [facility] Right: Shoulder [employer] 09/16/2021 AR-2323BCT -2 / / [id number] documented as of this encounter Advance Directives [...] Advance Directives occurred with: Patient Care Teams Data Analytics Architect Relationship Specialty Start Date End Date Velasquez Valencia MD PCP - General Family Medicine 09/09/22 documented as of this encounter
[2024-12-24] MEDS: ISOSORBIDE MONO EXTENDED REL 30 MG TABCR PO ONE (17:33)
[2024-12-25 06:53] LABS: BUN Creatinine Ratio 30.9 (10-20); Calcium 9.4 mg/dl (8.6-10.3); Creatinine Clr Calc Pharmacy 116.8 ml/min
[2024-12-25 08:03] VITALS: TEMP 98.2
[2024-12-25] MEDS: LANTUS PER UNIT CHARGE SC SCH (09:02)
[2024-12-25] MEDS: ISOSORBIDE MONO EXTENDED REL 30 MG TABCR PO SCH (09:03)
--- NOTE | 2024-12-25 10:06 | Pharmacy Report ---
Pharmacy Glycemic Short Note 2 - Date of Service December 25, 2024 - Glycemic Short BSG Results (Last 24 hours): 12/24/24 12/24/24 12/24/24 09:55 11:31 16:00 Glucose 299 H POC Glucose 264 H 168 H 12/24/24 12/25/24 12/25/24 20:08 06:09 07:35 Glucose 259 H POC Glucose 193 H 240 H OUTPATIENT ANTIDIABETIC REGIMEN: * metformin ER 500mg po daily * Insulin pump with aspart (off currently) -max basal rate of 5.5 units/hr (132 units/24 hours). Temp basal-configured to use %. -Max bolus-30 units/bolus. Target glucose 130 mg/dL, correct above 140 mg/dL. Minimum glucose for calculation 70 mg/dL. -Insulin to carb ratio-3g of carbs. Correction factor-9mg/dL. Reverse correction function is ON. HbA1c: 11.2% on 10/11/24 and 10.9% on 12/23/24 ASSESSMENT: 12/25 * Patient received a total of 109 units of insulin yesterday (60units were basal and 49 units were bolus). BSGs were still elevated through the day even with almost doubling the amount of insulin from the previous day ([phone]/dL.) * Fasting BSG was 240mg/dL this morning. Lantus was increased to 35 units SQ BID and CR was tightened. 12/23: * 49 year old male admitted 12/21 with chest pain. Pharmacy has been consulted fo r glycemic management while he is admitted. * Fasting BSG yesterday morning was 290mg/dL. Patient was ordered 5 units of Lantus SQ x 1 and bolus insulin was initiated with fairly loose parameters. * BSGs remained elevated through the day yesterday (104-343-402pl/dL). An additional 10 units of Lantus was ordered for last evening and parameters of the bolus insulin were tightened. * Fasting BSG this morning was 229mg/dL. Lantus 15 units SQ x 1 was ordered and a Lantus scale was started for HS (0, 5, or 10 units depending on BSG). * BSG still 220mg/dL at lunch today, so CR was tightened. * Based his home pump settings, will likely have to increase Lantus dose tomorrow and tighten parameters for bolus insulin. Will follow BSGs and make adjustments as necessary. PLAN FOR INPATIENT GLYCEMIC CONTROL: * Hold outpatient diabetes medications * Basal insulin * Lantus 35 units SQ BID * Bolus insulin * NovoLog per scale ACHS or Q6hrs while NPO * Goal Range: Low 110 mg/dL - High 140 mg/dL * Correction Factor: 15 mg/dL/unit * Nutritional / Prandial insulin per carb ratio of 1 unit per 5 grams CHO consumed
--- NOTE | 2024-12-25 10:53 | Cardiology Progress Note ---
Date of Service December 25, 2024 Assessment & Plan (1) Atypical chest pain: (2) HTN, goal below 130/80: (3) Bronchitis: (4) CAD (coronary artery disease): Plan Atypical chest pain. Discomfort reproducible with palpation of the chest wall. Patient reassured. General measures advised. Concern for atrial fibrillation after seeing a commercial with [employer]. - No atrial fibrillation observed thus far - Patient with multiple risk factors for atrial fibrillation - Continue metoprolol. - Recommend follow-up with sleep medicine, reevaluation and treatment of sleep apnea. - Risk factor modification reviewed. ASCVD. Recent catheterization as noted below. Continue medical management - aspirin, statin, beta-ryan, ARB, amlodipine, and now isosorbide Hypertension. Blood pressures labile. Overall, BP appears acceptably controlled. Continue the current antihypertensive regimen listed in the EMR. Dyslipidemia. LDL cholesterol goal less than 70 mg/dL. Continue statin. Peripheral edema. Appearing multifactorial in etiology. Terazosin and amlodipi ne may be contributing factors. - Continue Torsemide. - Spironolactone (50 mg/day) held due to hyperkalemia. - Recommend sodium (2 g/day) and fluid (2 L/day) restrictions. - DTP: Double torsemide x 2 to 3 days with 2 pound weight gain overnight or 5 pound weight gain in 1 week. - Resume lower dose spironolactone if/when hypokalemia observed. Admission and Anticipated Discharge Date Admission Date: December 23, 2024 Supervising Physician Co-Signing Physician Notes A month for stent kevin eldridge attending attestation: Case reviewed with the advanced practitioner. I have personally performed a history and physical examination on the patient. I have reviewed the advanced practitioner's documentation on the date of service referenced in note, and I agree with, and take responsibility for the plan of care. Eugenio Salvador, DO Subjective Patient seen and examined. Chart, medications, and telemetry reviewed. Asked by Hospitalist to reevaluate patient due to concerns regarding atrial fibrillation, ongoing chest pain Patient notes seeing a commercial with [employer]ree[employer] Grubbs regarding his issues with atrial fibrillation; patient has all 5 symptoms Telemetry reviewed with rv service technician. No atrial fibrillation noted throughout entire hospitalization. Rhythm is sinus in the 80s Chest pain reproducible with palpation of the chest wall suggesting musculoskeletal etiology - High-sensitivity troponin negative x 2 (7.0 -> 9.9 -> 8.0 pg/mL) - EKG without acute ST segment change - Resting echocardiography on December 23, 2024 was technically difficult, revealing normal LV systolic function, EF 55 to 60%, with normal LV wall motion - Imaging of the chest with possible subtle bronchitis, otherwise without acute process. - Diagnostic cardiac catheterization (following abnormal nuclear stress test) on October 12, 2024 revealed an apparent chronic total occlusion of the diagonal branch with otherwise mild nonobstructive coronary artery disease. Physical Exam Physical Exam: General: NAD. HENT: Normocephalic. Neck: Neck veins not appreciated Heart: Very distant heart sounds, appearing regular Lungs: Clear to auscultation. Abdomen: +BS. Soft. Nontender. No masses or organomegaly. Extremities: 1+ pretibial edema on the right. Below-knee amputation on the left. Limited neurological examination is without focal deficits. Results & Data Vital Signs (Past 12 Hours) Vital Signs Temp Pulse Pulse Resp BP Pulse Ox O2 Del Method 12/25/24 09:59 Nasal Cannula 12/25/24 08:01 36.8 C 80 18 159/63 H 92 Nasal Cannula 12/25/24 02:47 36.7 C 81 20 122/64 89 L Nasal Cannula 12/24/24 23:23 93 Nasal Cannula O2 Flow Rate 12/25/24 09:59 3 12/25/24 08:01 12/25/24 02:47 12/24/24 23:23 3 Laboratory Results Comprehensive Metabolic Panel 12/24/24 12/25/24 Range/Units 11:00 06:09 Sodium 136 (136-145) mmol/L Potassium 5.5 H 5.0 (3.5-5.1) mmol/L Chloride 100 (98-107) mmol/L Carbon Dioxide 31 (21-32) mmol/L BUN 38 H (6-23) mg/dl Creatinine 1.23 (0.6-1.4) mg/dl Glucose 259 H (70-99(Fasting)) mg/dl Calcium 9.4 (8.6-10.3) mg/dl Intake and Output 12/24/24 12/25/24 12/25/24 22:59 06:59 14:59 Intake Total 1320 / 1620 300 / 1620 Output Total 2175 / 4075 1400 / 4075 Balance -855 / -2455 -1100 / -2455 Intake: Oral 1320 / 1620 300 / 1620 Output: Urine 217 / 5 Other 1400 / 1399 Other: Weight 163.8 kg Weight Measurement Method Built in [facility] (4) CAD (coronary artery disease) Associated angina: without angina Coronary Disease-Associated Artery/Lesion type: [place] artery [place] vs. transplanted heart: [place] heart Qualified Code(s): I25.10 - Atherosclerotic heart disease of [place] coronary artery without angina pectoris
--- NOTE | 2024-12-25 12:01 | Hospitalist Progress Note ---
Date of Service December 25, 2024 Assessment & Plan (1) Chest pain: Plan: Atypical chest pain Likely due to uncontrolled hypertension, bronchitis, musculoskeletal Likely sleep apnea, generalized pain likely contributing to uncontrolled blood pressure Moderate CAD left coronary artery anatomy without obstruction on diagnostic cardiac cath in Sep 2024 --Troponin negative --EKG showed no acute changes when compared to prior --Limited echo: No wall motion abnormalities Continue losartan, metoprolol Also on terazosin Added amlodipine 5 mg daily Continue aspirin, statin Appreciate cardiology input Blood pressure improved Plan to discharge home today Advised ZIO monitor and follow-up with cardiology as outpatient Updated patient's sister in detail over the phone Acute bronchitis Chest CTA showed no pneumonia, PE Respiratory biofire negative continue Augmentin Acute kidney injury Hyperkalemia Received IV fluids Monitor renal function Avoid nephrotoxic agents as able Cr 1.2 today Will hold Aldactone for now given hyperkalemia DAMION Currently not using CPAP --Nocturnal hypoxia Reviewed nocturnal oximetry study Need sleep study as outpatient Continue supplemental oxygen at bedtime off note: Patient states having no hypoxia on oximetry study at home previously. "you want me to use cpap at night and get paralyzed" Explained in detail his condition and advised to get repeat Sleep Study as outpatient Will obtain 2 step prior to discharge Patient unlikely to be compliant as he doesn't believe the oximetry study results despite explaining in detail DM II--Uncontrolled ? Noncompliance with diet/meds was on Insulin pump Hold PO meds Continue Insulin while hospitalized Glycemic pharmacist consulted Monitor BGs Chronic diastolic heart failure (EF 55 to 60%, TTE 2023): Currently no signs of volume overload Monitor volume status closely Restart torsemide on discharge Will hold Aldactone for now Advised to follow-up with primary care physician/pressing machine tender on discharge for further recommendations Other chronic conditions: Hyperlipidemia, on statin COPD/RLD, No signs of acute exacerbation PE/DVT completed anticoagulation treatment NAFLD chronic anemia intellectual disability as per records ongoing tobacco abuse Continue home medications as able DVT Px: Lovenox SQ Code Status Full code Disposition Home Admission and Anticipated Discharge Date Admission Date: December 23, 2024 Subjective Patient is seen and examined at bedside Patient is upset and believes he has afib Cough resolved Reports no change in chest discomfort Chronic left stump pain Comfortable lying in bed with no distress on all my encounters Discussed with cardiology today Updated patient's sister over the phone in detail Review of Systems Review of Systems: All systems reviewed & are unremarkable except as noted in Subjective Physical Exam Physical Exam: Physical Exam: Vitals signs as noted above General Appearance:Obese, no apparent distress Head: normocephalic, Atraumatic Eyes: normal inspection, EOMI Neck: supple, Trachea midline Respiratory/Chest: Decreased breath sounds, CTA, No accessory muscle use Cardiovascular: S1, S2, No murmur Abdomen/GI:Soft, Non tender, Bowel sounds present Extremities/Musculoskeletal:normal inspection, trace edema, Left AKA stump Neurologic/Psych:AAOX3, grossly no focal neurological deficits Skin: normal color, warm Results & Data Results & Data Vital Signs (Past 12 Hours) Vital Signs Temp Pulse Pulse Resp BP BP Pulse Ox 12/25/24 11:28 36.8 C 82 20 138/65 88 L 12/25/24 09:59 12/25/24 08:01 36.8 C 80 18 159/63 H 92 12/25/24 02:47 36.7 C 81 20 122/64 89 L O2 Del Method O2 Flow Rate 12/25/24 11:28 Room Air 12/25/24 09:59 Nasal Cannula 3 12/25/24 08:01 Nasal Cannula 12/25/24 02:47 Nasal Cannula Laboratory Results BMP 12/25/24 06:09 Sodium 136 Potassium 5.0 Chloride 100 Carbon Dioxide 31 BUN 38 H Creatinine 1.23 Glucose 259 H Calcium 9.4 (1) Chest pain Chest pain type: unspecified Qualified Code(s): R07.9 - Chest pain, unspecified
--- NOTE | 2024-12-25 13:19 | Discharge Summary ---
Date of Service December 25, 2024 Admission HPI Per Admitting Provider History obtained from patient and records. Medical history significant for chronic diastolic heart failure (EF 55 to 60%, TTE 2023), CAD, hypertension, hyperlipidemia, COPD/RLD, DAMION (current CPAP noncompliance), PE/DVT status post anticoagulation, DM2 on insulin pump, NAFLD, GERD, gastroparesis, history of pancreatitis, chronic anemia (baseline hemoglobin 11-12), morbid obesity, intellectual disability as per records, ongoing tobacco abuse. Last confinement September 2024 for chest pain in the setting of abnormal outpatient stress test. Moderate CAD left coronary artery anatomy without obstruction on diagnostic cardiac cath. 2 days history of dry cough symptoms, not sure about sick contacts. Today, patient noted substernal chest tightness worse on exertion. Denies fluid retention. Patient also noted achy headache behind the left eye. No changes in vision. Patient claims to be compliant with home medications. SBP 180s upon arrival at the ER. Chest pain not relieved by nitroglycerin at the ER. 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 Admission Exam Per Admitting Provider GENERAL: Comfortable, pleasant, morbidly obese, no respiratory distress SKIN: Pallor, warm HEENT: Alopecia, no obvious facial swelling, pale palpebral conjunctivae, no ptosis, moist buccal mucosa NECK : Supple, short neck, no tenderness CHEST : Decreased breath sounds, no tenderness HEART : RRR, no obvious murmurs ABDOMEN: Some distention, no abdominal tenderness EXTREMITIES : RLE swelling without tenderness, left BKA stump NEUROLOGIC : Coherent, no facial asymmetry, no other gross focality Principal Diagnosis Atypical chest pain Hypertension Acute bronchitis Acute kidney injury Nocturnal hypoxia Uncontrolled diabetes mellitus Discharge Data Allergies Allergy/AdvReac Type Severity Reaction Status Date / Time cefaclor [From Ceclor] Allergy Unknown childhood Verified 11/14/24 12:17 allergy ? Cephalosporins Allergy Unknown Unknown Verified 11/14/24 12:17 empagliflozin AdvReac Unknown put me Verified 11/14/24 12:17 [From Jardiance] into ketoacidosis? NSAIDS (Non-Steroidal AdvReac Unknown use with Verified 11/14/24 12:17 Anti-Inflamma caution : hx esophagus damage Consultations 12/21/24 20:17 ED Decision to Admit Stat 12/23/24 10:18 Consult Cardiology Routine Procedures Performed Laboratory Results WBC 8.15 K/ul (4.8-10.8) 12/23/24 06:55 RBC 4.35 M/uL (4.70-6.10) L 12/23/24 06:55 Hgb 11.2 g/dl (14.0-18.0) L 12/23/24 06:55 Hct 36.9 % (42.0-52.0) L 12/23/24 06:55 MCV 84.8 fL (80.0-100.0) 12/23/24 06:55 MCH 25.7 pg (25.0-34.0) 12/23/24 06:55 MCHC 30.4 g/dL (32.0-36.0) L 12/23/24 06:55 RDW Std Deviation 45.4 fL (36.4-46.3) 12/23/24 06:55 RDW Coeff of Abiodun 14.8 % (11.5-14.5) H 12/23/24 06:55 Plt Count 223 K/uL (130-400) 12/23/24 06:55 MPV 9.3 fL (9.4-12.4) L 12/23/24 06:55 Immature Gran % (Auto) 1.2 % 12/22/24 05:19 Neut % (Auto) 62.4 % 12/22/24 05:19 Lymph % (Auto) 21.4 % 12/22/24 05:19 [place] % (Auto) 10.0 % 12/22/24 05:19 Eos % (Auto) 4.3 % 12/22/24 05:19 Baso % (Auto) 0.7 % 12/22/24 05:19 Neut # (Auto) 5.02 K/uL (1.40-6.50) 12/22/24 05:19 Lymph # (Auto) 1.73 K/uL (1.20-3.40) 12/22/24 05:19 [place] # (Auto) 0.81 K/uL (0.11-0.59) H 12/22/24 05:19 Eos # (Auto) 0.35 K/uL (0.00-0.50) 12/22/24 05:19 Baso # (Auto) 0.06 K/uL (0.00-0.20) 12/22/24 05:19 Immature Gran # (Auto) 0.10 K/uL (0.01-0.20) 12/22/24 05:19 APTT 28 Seconds (21-31) 12/21/24 19:15 PTT Ratio 1.0 12/21/24 19:15 Sodium 136 mmol/L (136-145) 12/25/24 06:09 Potassium 5.0 mmol/L (3.5-5.1) 12/25/24 06:09 Chloride 100 mmol/L (98-107) 12/25/24 06:09 Carbon Dioxide 31 mmol/L (21-32) 12/25/24 06:09 Anion Gap 5 (3-11) 12/25/24 06:09 BUN 38 mg/dl (6-23) H 12/25/24 06:09 Creatinine 1.23 mg/dl (0.6-1.4) 12/25/24 06:09 Est Cr Clr Drug Dosing 116.8 ml/min 12/25/24 06:09 eGFR 71.08 12/25/24 06:09 BUN/Creatinine Ratio 30.9 (10-20) H 12/25/24 06:09 Glucose 259 mg/dl (70-99(Fasting)) H 12/25/24 06:09 POC Glucose 282 mg/dl (70-99) H 12/25/24 11:07 Estimat Average Glucose 266 mg/dl 12/23/24 06:55 Hemoglobin A1c 10.9 % (4.5-5.6) H 12/23/24 06:55 Calcium 9.4 mg/dl (8.6-10.3) 12/25/24 06:09 Magnesium 1.9 mg/dl (1.7-2.4) 12/23/24 06:55 Total Bilirubin 0.4 mg/dl (0.2-1.0) 12/21/24 19:15 AST 16 U/L (13-39) 12/21/24 19:15 ALT 18 U/L (7-52) 12/21/24 19:15 Alkaline Phosphatase 79 U/L (34-104) 12/21/24 19:15 Troponin I High Sens 8.0 pg/ml (0-20) 12/22/24 05:19 Total Protein 8.0 gm/dl (6.0-8.3) 12/21/24 19:15 Albumin 4.1 gm/dl (3.4-5.0) 12/21/24 19:15 Globulin 3.9 gm/dl (2.5-4.0) 12/21/24 19:15 Albumin/Globulin Ratio 1.1 (0.9-2) 12/21/24 19:15 Lipase 80 U/L (11-82) 12/21/24 19:15 Procalcitonin 0.04 ng/ml (0-0.5) 12/23/24 06:55 Adenovirus (PCR) Not Detected (NotDetected) 12/21/24 21:07 B. pertussis DNA (PCR) Not Detected (NotDetected) 12/21/24 21:07 B.parapertussis DNA PCR Not Detected (NotDetected) 12/21/24 21:07 C. pneumoniae DNA (PCR) Not Detected (NotDetected) 12/21/24 21:07 Coronavirus OC43 (PCR) Not Detected (NotDetected) 12/21/24 21:07 Coronavirus HKU1 (PCR) Not Detected (NotDetected) 12/21/24 21:07 Coronavirus 229E (PCR) Not Detected (NotDetected) 12/21/24 21:07 SARS-CoV-2 (PCR) Not Detected (NotDetected) 12/21/24 21:07 Coronavirus NL63 (PCR) Not Detected (NotDetected) 12/21/24 21:07 Human Metapneumovir PCR Not Detected (NotDetected) 12/21/24 21:07 Influenza Type A (PCR) Not Detected (NotDetected) 12/21/24 21:07 Influenza Type B (PCR) Not Detected (NotDetected) 12/21/24 21:07 M. pneumoniae (PCR) Not Detected (NotDetected) 12/21/24 21:07 Parainfluenza 1 (PCR) Not Detected (NotDetected) 12/21/24 21:07 Parainfluenza 2 (PCR) Not Detected (NotDetected) 12/21/24 21:07 Parainfluenza 3 (PCR) Not Detected (NotDetected) 12/21/24 21:07 Parainfluenza 4 (PCR) Not Detected (NotDetected) 12/21/24 21:07 RSV (PCR) Not Detected (NotDetected) 12/21/24 21:07 Entero/Rhino (PCR) Not Detected (NotDetected) 12/21/24 21:07 Impressions Chest X-Ray 12/21/24 19:18 Exam(s): XR CXR 1 VIEW EXAM: XR Chest, 1 View CLINICAL HISTORY: Chest pain, nonspecific. TECHNIQUE: Frontal view of the chest. COMPARISON: Portable chest single view dated 11/01/2024 FINDINGS: Lungs: Shallow inspiration. No focal airspace consolidation. The pulmonary vasculature is stable and unremarkable. Pleural space: Unremarkable. No pneumothorax. No large pleural effusion. Heart: Unremarkable. No cardiomegaly. Mediastinum: The mediastinal contours are stable with similar right hilar presumed vascular findings. No tracheal deviation. Bones/joints: Unremarkable. No acute fracture. IMPRESSION: Poor inspiratory effort, similar to the previous examination. No acute cardiopulmonary process or significant alteration from the prior examination. Electronically signed by: Elmer Jose MD 12/21/24 21:09 PM Chest CTA 12/21/24 22:02 Exam(s): CTA CHEST IV Amt: 118 ml optiray 320 EXAM: CT Angiography Chest With Intravenous Contrast CLINICAL HISTORY: cp. TECHNIQUE: Axial computed tomographic angiography images of the chest with intravenous contrast. CTDI is 36.09 mGy and DLP is 1165.53 mGy-cm. Automated exposure control was utilized for the study. A dose lowering technique was utilized adhering to the principles of ALARA. MIP reconstructed images were created and reviewed. COMPARISON: CTA chest 09/30/2024 FINDINGS: Limitations: There is respiratory artifact, which degrades image quality throughout the examination. Pulmonary arteries: Accounting for limitations with respiratory artifact, there is no evidence for pulmonary embolism. Several distal subsegmental pulmonary artery segments are of limited diagnostic quality. Aorta: The thoracic aorta is normal in caliber. No dissection or aneurysm. Lungs: No definite focal airspace consolidation. Central peribronchial cuffing is minimally more prominent from the prior examination. Pleural space: Unremarkable. No significant effusion. No pneumothorax. Heart: The cardiac chambers are within normal limits in size. Moderate LAD calcification. No pericardial effusion. Mediastinum: Similar concentric mucosal thickening of the mid thoracic esophagus. The esophagus is decompressed without paraesophageal inflammatory changes. Bones/joints: No acute fracture. No dislocation. Soft tissues: Unremarkable. Lymph nodes: Unremarkable. No enlarged lymph nodes. IMPRESSION: 1. Accounting for limitations with respiratory artifact, there is no evidence for pulmonary embolism. Several distal subsegmental pulmonary artery segments are of limited diagnostic quality. No CT evidence for right heart strain. 2. No definite focal airspace consolidation. Central peribronchial cuffing is minimally more prominent from the prior examination. This may represent chronic changes or subtle bronchitis. No bronchial obstruction or postobstructive pneumonitis. No pleural effusion or pneumothorax. Electronically signed by: Elmer Jose MD 12/22/24 00:[address] 12/21/24 22:02 Exam(s): CT HEAD Without Contrast EXAM: CT Head Without Intravenous Contrast CLINICAL HISTORY: avery. TECHNIQUE: Axial computed tomography images of the head/brain without intravenous contrast. CTDI is 27.51 mGy and DLP is 789.24 mGy-cm. Automated exposure control was utilized for the study. A dose lowering technique was utilized adhering to the principles of ALARA. COMPARISON: CT head without contrast dated 09/30/2024 FINDINGS: Brain: Unremarkable. No hemorrhage. No significant white matter disease. No edema. Ventricles: Unremarkable. No ventriculomegaly. Bones/joints: Unremarkable. No acute fracture. Soft tissues: The overlying soft tissues are stable in appearance. Sinuses: The paranasal sinuses are well aerated without mucosal thickening or air-fluid levels. Mastoid air cells: Unremarkable as visualized. No mastoid effusion. IMPRESSION: No acute intracranial process or significant alteration from the prior examination. Electronically signed by: Elmer Jose MD 12/22/24 00:27 AM Knee X-Ray 12/24/24 09:48 XR knee LT 3V CLINICAL HISTORY: pain COMPARISON: 05/27/2020 FINDINGS: There is interval below the knee amputation. No fracture or dislocation. No evidence of osteomyelitis. There is a stable 2.6 cm oval area of sclerosis at the distal shaft of the femur. There is progressive osteopenia. There are minimal degenerative changes. IMPRESSION: No acute findings. ACT 112: Negative or not required by law. Electronically signed by: Prasanth Morelos M.D. 12/24/2024 10:35 AM Ordered Studies 12/21/24 22:02 CT angio chest PE protocol Stat CT head/brain wo con Stat Hospital Course (1) Chest pain: Atypical chest pain Likely due to uncontrolled hypertension, bronchitis, musculoskeletal Likely sleep apnea, generalized pain likely contributing to uncontrolled blood pressure Moderate CAD left coronary artery anatomy without obstruction on diagnostic cardiac cath in Sep 2024 --Troponin negative --EKG showed no acute changes when compared to prior --Limited echo: No wall motion abnormalities Continue losartan, metoprolol Also on terazosin Added amlodipine 5 mg daily Continue aspirin, statin Appreciate cardiology input Blood pressure improved Plan to discharge home today Advised ZIO monitor and follow-up with cardiology as outpatient Updated patient's sister in detail over the phone Acute bronchitis Chest CTA showed no pneumonia, PE Respiratory biofire negative continue Augmentin Acute kidney injury Hyperkalemia Received IV fluids Monitor renal function Avoid nephrotoxic agents as able Cr 1.2 today Will hold Aldactone for now given hyperkalemia DAMION Currently not using CPAP --Nocturnal hypoxia Reviewed nocturnal oximetry study Need sleep study as outpatient Continue supplemental oxygen at bedtime off note: Patient states having no hypoxia on oximetry study at home previously. "you want me to use cpap at night and get paralyzed" Explained in detail his condition and advised to get repeat Sleep Study as outpatient Patient unlikely to be compliant as he doesn't believe the oximetry study results despite explaining in detail Patient stated that he would not use oxygen even if qualifies DM II--Uncontrolled ? Noncompliance with diet/meds was on Insulin pump Hold PO meds Continue Insulin while hospitalized Glycemic pharmacist consulted Monitor BGs Chronic diastolic heart failure (EF 55 to 60%, TTE 2023): Currently no signs of volume overload Monitor volume status closely Restart torsemide on discharge Will hold Aldactone for now Advised to follow-up with primary care physician/lamp shades supervisor on discharge for further recommendations Other chronic conditions: Hyperlipidemia, on statin COPD/RLD, No signs of acute exacerbation PE/DVT completed anticoagulation treatment NAFLD chronic anemia intellectual disability as per records ongoing tobacco abuse Continue home medications as able DVT Px: Lovenox SQ Code Status Full code Disposition Home Total Time Total Time Spent Total Time Spent (In Minutes): 55 minutes Discharge Plan Discharge Items Patient Disposition: Home - Self-Care Reason For Visit: CP Discharge Diagnosis: Atypical chest pain Hypertension Acute bronchitis Acute kidney injury Nocturnal hypoxia Uncontrolled diabetes mellitus Activity: Per Instructions section Exercise/Sports: Gradually increase as tolerated Non-emergency contact: Primary Care Provider Call non-emergency contact if: you have any medication questions, your symptoms worsen, your pain is concerning for you and you have a fever Follow-up/Referrals: Velasquez Valencia MD [Primary Care Provider] - (Date & Time 01/01/2025 2:20 PM Provider: Velasquez Valencia MD [facility], [facility] ) Diet: Carb Consistent or DM2, Heart Healthy and Low Sodium (2gm) Fluids: 2000ml (8 cups) Addtl Attending Provider Instructions: Follow-up with your primary care physician on 01/01/2025 2:20 PM Follow-up with your lamp shades supervisor as advised --Monitor your blood pressure regularly. Discuss with your physician for furt her medication adjustments as needed. --Obtain sleep study to rule out sleep apnea and use CPAP if indicated as advised. --Continue with 3L supplemental oxygen via nasal cannula at bedtime -- Complete antibiotic course Augmentin for bronchitis as advised --Monitor your blood glucose levels regularly. Discuss with your physician regarding diabetes management as advised. -- Get blood work BMP (basic metabolic panel) in 1 week to monitor your renal function, potassium levels. -- Get ZIO monitor arranged to rule out arrhythmias. Follow-up with your primary care physician/lamp shades supervisor to help with ZIO monitor arranged. Seek immediate medical attention if your symptoms reoccur or worsen Please take all medications as instructed on discharge list below. Please call if you have any questions or problems. You can reach a [facility] hospitalist on duty at [facility] 24 hours a day by calling [phone] Pending Studies at Discharge: No Stand-Alone Forms: My [facility] [employer], Smoking Cessation Medications and DC Order Prescriptions: New isosorbide mononitrate 30 mg Tablet Extended Release 24 Hr 30 mg PO QAM Qty: 30 0RF amlodipine [Norvasc] 5 mg Tablet 5 mg PO QAM Qty: 30 0RF amoxicillin-pot clavulanate 875-125 mg Tablet 1 tab PO BIDM Qty: 6 0RF Continued dicyclomine 10 mg capsule 10 mg PO QID PRN (Reason: Diarrhea) haloperidol 1 mg tablet 1 mg PO QAM PRN (Reason: gastroparesis symptoms) metoprolol succinate 25 mg tablet extended release 24 hr 25 mg PO BID Qty: 60 0RF aspirin 81 mg tablet,delayed release (DR/EC) 81 mg PO QAM metformin 500 mg tablet extended release 24 hr 500 mg PO QAM torsemide 20 mg tablet 20 mg PO QPM losartan 50 mg tablet 50 mg PO BID 30 Days Qty: 30 1RF atorvastatin 20 mg tablet 20 mg PO HS 30 Days Qty: 30 1RF terazosin 1 mg capsule 1 mg PO HS 30 Days Qty: 30 1RF omeprazole 40 mg capsule,delayed release(DR/EC) 40 mg PO DAILYBB 30 Days Qty: 30 1RF famotidine 20 mg tablet 20 mg PO HS 30 Days Qty: 30 1RF metoprolol succinate 100 mg tablet extended release 24 hr 100 mg PO BID polyethylene glycol 3350 17 gram Powder In Packet 17 g PO DAILY PRN (Reason: Constipation) Held spironolactone 25 mg tablet 50 mg PO DAILY Hold Instructions: Until follow-up with your primary care physician for further instructions Discharge Orders: Discharge Order (Routine); Ordered 12/25/24 Ordered By: Diogenes Richard Admission Data Admit Date/Time: 12/23/24 09:16 Attending Provider: Diogenes Richard Admit Provider: Zach Brown Primary Care Provider: Velasquez Valencia Other Providers: Zach Brown; Carlota Willson; Eugenio Salvador; Avery Gonzales; Black Mayfield; [place]; Colt Mendez; Diane Grove; Chandni Wayne Sowmya; Enciso, Ashley M.; Peter Rahman; Brian Alfaro; Karina Montes; Aditi Moreno; Nilsa Hernandez; Erika Harris; Gamal Sánchez; Katelyn Prabhakar; Sweta Loving
[2024-12-25 15:53] VITALS: BP 159/63; PULSE 82; RESP 20; O2SAT 88
[2024-12-25] MEDS ORDERED: TORSEMIDE 20 MG TAB PO SCH (17:00)
== END 2024-12-25 15:53 | disposition home or self-care (01) | DRG 292 ==
LOC: 2S 18:52 → ED 18:52 → 2S 12-22 01:49

== ENCOUNTER 2025-01-06 17:51 | Observation (INO) ==
--- OUTSIDE RECORDS SUMMARY | 2025-01-06 17:59 | External Medical Summary | Summary of Care ---
Author Name Unknown Organization [facility] Address [address] [address] Phone [phone] Care Team Providers Care Continuous Improvement Consultant Name Role Phone Velasquez Valencia MD Primary Care Provider [phone]- [phone] Reason for Visit * Reason Onset Date Comments Pre Cert/Prior Auth 01/02/2025 Omnipod quin tity limit Encounter Details Date Type Department Care Team (Late st Contact Info) Description 01/02/2025 Telephone Pharmacy, [place] [facility] [address] [place] [address] Gisel Butler, [facility] [address] [facility] [place] [id number] Pre Cert/Prior Auth (Omnipod quantity limit) Allergies Active Allergy Reactions Criticality Noted Date Comments Pioglitazone 07/19/2024 Cefaclor Unknown 07/26/2018 As child Empagliflozin Other (Please comment) 05/16/2021 DKA with hospitalization Nsaids High 04/19/2019 Gastric problems Other Reaction(s): gastroparesis, kidney problems, use with caution : hx esophagus damage documented as of this encounter (statuses as of 01/03/2025) Medications Ondansetron HCl 4 MG Oral Tablet Take 1 Tablet by mouth every 8 hours as needed for Nausea. 20 Tablet 11/05/2023 11:40 AM EST 01/19/202 4 Active BD Pen Needle Short U/F [...] g 5 4 Active OneTouch Delica Lancets 33GIndications: Type [...] 2:30 PM EST 4 Active Dexcom G6 TransmitterIndi cations:Type [...] 4 11/07/2024 11:26 AM EST 5 Active Additional Information Patient not taking.Reported on 01/01/2025 Saccharomyces boulardii 250 MG Oral Capsule (Florastor)Yanet cations:Diarrhe a, unspecified type Take 1 Capsule by mouth in the morning and 1 Capsule before bedtime. 30 Capsule 5 Active Torsemide 20 MG Oral Tablet (Demadex) Take 1 Tablet by mouth in the morning. 5 Active Spironolactone 25 MG Oral Tablet (Aldactone)Yanet cations:HTN, goal below 140/90 Take 1 Tablet by [...] before bedtime. 180 Tablet 3 5 Active amLODIPine Besylate 5 MG Oral Tablet (Norvasc) Take 1 Tablet by mouth in the morning. Active Gabapentin 300 MG Oral Capsule (Neurontin)Yanet cations:Neuropa thy Take 1 Capsule by mouth 2 times a day. 180 Capsule 3 5 Active metFORMIN HCl ER 500 MG Oral Tablet Extended Release 24 Hour (Glucophage XR)Indications: Type 2 diabetes mellitus with hemoglobin A1c goal of less than 7.0% (HCC) Take 2 Tablets by mouth 2 times a day with morning and evening meals. 360 Tablet 4 5 Active Omnipod 5 [id number] Pods Gen 5Indications:Ty pe 2 diabetes mellitus with hemoglobin A1c goal of less than 7.0% (HCC) Use as directed. Change pod every 1 day 90 Each 3 5 Active Omnipod 5 [id number] Pods Gen 5Indications:Ty pe 2 diabetes mellitus with hemoglobin A1c goal of less than 7.0% (HCC) Use as directed. Change pod every 1 and 1/2 days 75 Each 3 12/14/2024 1:44 PM EST 5 025 Discontin ued(Refil l) documented as of this encounter (statuses as of 01/03/2025) Active Problems Problem Noted Date Diagnosed Date COPD, group B, by GOLD 2017 classification 11/27 Overview: Per COPD GOLD Classification Chronic diastolic congestive heart failure 11/06 Wxyyahh-Pqbkz-Ogryr disease 11/06/2024 Coronary artery disease invo lving [place] coronary artery of [place] heart without angina pectoris 10/17/2024 Well adult [...] as of this encounter (statuses as of 01/03/2025) Resolved Problems Problem Noted Date Diagnosed Date [...] as of this encounter (statuses as of 01/03/2025) Immunizations Name Administration Dates Next Due COVID-19 mRNA, LNP-s, No Pre serve, 2-Dose Series ([place]) 10/21/2021,03/01/2021,02/07/2021 H1N1 2009 Influenza, IM 11/04/2009 Pneumococcal Conjugate Vacci ne, 20-valent ([id number]) 07/09/2023 Pneumococcal Polysaccharide PPV23 (Pneumovax) 11/03/2015,02/09/2006 Seasonal [...] Assessment Author Yes 04/10/2024 9:27 PM Alicia Lazaro, NEPTALI * Because of a physical, mental, or [...] encounter Miscellaneous Notes * Telephone Encounter - Thao Conde cheese supervisor - 01/03/2025 11:06 AM EDT Patients insurance would like to inform the office that Omnipod is approved until open ended. Patient and pharmacy made aware by [facility]. Information will be faxed to the office. Thank you, Thao Conde Cashier [facility] 01/03/2025,11:06 AM * Telephone Encounter - Gisel Butler RPh - 01/02/2025 1:40 PM EDT Patient changing omnipod every day. PA submitted to insurance for coverage. Submitted PA for Quantity increase for OP5 pods on PromptPA. Prior Auth (EOC) ID: [id number] Drug/Service Name: OMNIPOD 5 [id number] PODS (GEN 5) Patient: ROBERT BARAJAS Date Requested: 01/02/2025 1:46:11 PM MemberID: [id number] : 1975 Follow up in 1 day to check for status Gisel Butler RPh 01/02/25 1:42 PM documented in this encounter Plan of Treatment Upcoming Encounters Date Type Department Care Team (Late st Contact Info) Description 01/29/2025 9:30 AM EDT Imaging Radiology [address], [address] [place] [phone] 01/30/2025 3:00 PM EDT Office Visit Cardiology, [facility] [address] [facility] [place] [address] [place], [address] [place] [address] 02/02/2025 10:10 AM EDT [address] [place] [phone] [facility] [address] [facility] [address] 06/04/2025 9:30 AM EDT Office Visit Cardiology, [facility] [address] [facility] [place] [address] Sweta Loving CRNP [address] [facility] [place] [address] 07/09/2025 10:00 AM EDT Office Visit Pulmonary Medicine, [facility] [address] [facility] [place] [address] Vishal Wallace MD [address] [facility] [address] Scheduled Procedures Name Priority Associated Diagnoses Date/Ti [...] this encounter Medical Devices Implanted Type Area Stove Tender Device Identifier Shelf Expiration Date Model / Serial / Lot Suture [place] Dbl Load 4.75mm - [id number] Implanted:Qty: 1 on 12/01/2019 by Judith Condon, at OR [facility] Right: Shoulder [employer] 07/17/2021 AR-2324BCT -2 / / [id number] Suture [place] Dbl Load 5.5mm - [id number] Implanted:Qty: 1 on 12/01/2019 by Judith Condon, at OR [facility] Right: Shoulder [employer] 09/16/2021 AR-[id number] -2 / / [id number] documented as of this encounter Visit Diagnoses Diagnosis Type 2 diabetes mellitus with hemoglobin A1c goal of less than 7.0% (HCC) documented in this encounter Advance Directives [...] Advance Directives occurred with: Patient Care Teams Continuous Improvement Consultant Relationship Specialty Start Date End Date Velasquez Valencia MD [address] [place] [address] PCP - General Family Medicine 09/09/22 documented as of this encounter
--- OUTSIDE RECORDS SUMMARY | 2025-01-06 17:59 | External Medical Summary | Summary of Care ---
Author Name Unknown Organization [facility] Address [address] [place] [address] Phone [phone] Care Team Providers Care Call Center Director Name Role Phone Velasquez Valencia MD Primary Care Provider +1- [phone] Encounter Details Date Type Department Care Team (Late st Contact Info) Description 01/05/2025 8:45 AM EDT Scheduled Telephone Care Coordination and Integration [address] [place] [address] Cynthia Garcia [facility] [address] [place] [address] Allergies Active Allergy Reactions Criticality Noted Date Comments Pioglitazone 07/19/2024 Cefaclor Unknown 07/26/2018 As child Empagliflozin Other (Please comment) 05/16/2021 DKA with hospitalization Nsaids High 04/19/2019 Gastric problems Other Reaction(s): gastroparesis, kidney problems, use with caution : hx esophagus damage documented as of this encounter (statuses as of 01/05/2025) Medications Ondansetron HCl 4 MG Oral Tablet [...] 01/01/2025 Saccharomyces boulardii 250 MG Oral Capsule (Florastor)Indic [...] morning and evening meals. 360 Tablet 4 01/04/2025 5:26 PM EDT 5 Active Omnipod 5 [id number] Pods Gen 5Indications:Typ e 2 diabetes mellitus with hemoglobin A1c goal of less than 7.0% (HCC) Use as directed. Change pod every 1 day 90 Each 3 01/03/2025 3:44 PM EDT Active documented as of this encounter (statuses as of 01/05/2025) Active Problems Problem Noted Date Diagnosed Date COPD, group B, by GOLD 2017 classification 11/27 Overview: Per COPD GOLD Classification Chronic diastolic congestive heart failure 11/06 Qomhxzs-Wqode-Yqopo disease 11/06/2024 Coronary artery disease invo lving [place] coronary artery of [place] heart without angina pectoris 10/17/2024 Well adult [...] as of this encounter (statuses as of 01/05/2025) Resolved Problems Problem Noted Date Diagnosed Date [...] (11/14/2009): Per HTN Taxonomy. Diabetic polyneuropathy 04/12/2007 100 04/2016 Overview (01/03/2016): ICD-10 update of inactive [...] as of this encounter (statuses as of 01/05/2025) Immunizations Name Administration Dates Next Due COVID-19 mRNA, LNP-s, No Pre serve, 2-Dose Series ([place]) 10/21/2021,03/01/2021,02/07/2021 H1N1 2009 Influenza, IM 11/04/2009 Pneumococcal Conjugate Vacci ne, 20-valent (Bserhiw20) 07/09/2023 Pneumococcal Polysaccharide PPV23 (Pneumovax) 11/03/2015,02/09/2006 Seasonal [...] documented in this encounter Progress Notes * Cynthia Garcia [facility] - 01/05/2025 9:01 AM EDT Telemedicine visit: No [facility] ([facility]) documentation: CHW rola call week 1 per CM CHW spoke with pt this date. CHW survey completed. Pt states he has a heart monitor on right now due to the chest pain and fast heart rate. Pt reported pain in his leg and shoulder, which was not new. He also stated he does have some swelling in his right leg at time, but it does go away with elevation. Pt reports he is weighing himself daily in the morning, after voiding, and without clothes. He was concerned as there was such a discrepancy from the scale at home and the doctors office. It is showing over a 25# increase at the office. CHW advised pt to keep monitoring with the [facility] scale, as this will show if there's been a 2# increase overnight or a 5# weight gain in a week, alerting to any issues with fluid retention. Confirmed pt had the contact info for the CM. 325.4# documented in this encounter Plan of Treatment Upcoming Encounters Date Type Department Care Team (Late st Contact Info) Description 01/29/2025 9:30 AM EDT Imaging Radiology [address] [place] [phone] 01/30/2025 3:00 PM EDT Office Visit Cardiology, [facility] [address] [place] [phone] [place], [address] [place] [address] 02/02/2025 10:10 AM EDT Office Visit Pharmacy, [facility] [address] [place] [phone] [place] [place] [address] 06/04/2025 9:30 AM EDT Office Visit Cardiology, [facility] [address] [place] [address] Sweta Loving CRNP [address] [place] [phone] 07/09/2025 10:00 AM EDT Office Visit Pulmonary Medicine, [facility] [address] [place] [address] Vishal Wallace MD [address] [facility] [id number] Scheduled Procedures Name Priority Associated Diagnoses Date/Ti [...] 11/27/2019, Additional history exists HbA1c 11/09/2024 05/09/2024, 05/10/2023, 01/14/2024, Additional history exists Albumin/Creatinine Ratio 01/13/2025 024, 01/05/2023, 09/01/2021, Additional history exists Depression Screening 04/19/2025 04/19/2024 DISCUSS TOBACCO CESSATION (REFER TO SMARTSET #6133) 07/19/2025 07/19/2024, 10/16/2022 Diabetic Eye Exam 09/22/2025 [...] encounter Medical Devices Implanted Type Area Training Analyst Device Identifier Shelf Expiration Date Model / Serial / Lot Suture [place] Dbl Load 4.75mm - [id number] Implanted:Qty: 1 on 12/01/2019 by Judith Condon DO at [facility] Right: Shoulder [employer] 07/17/2021 AR-2324BCT -2 / / [id number] Suture [place] Dbl Load 5.5mm - [id number] Implanted:Qty: 1 on 12/01/2019 by Judith Condon DO at [facility] Right: Shoulder [employer] 09/16/2021 AR-2323BCT -2 / / [id number] documented as of this encounter Advance Directives [...] Advance Directives occurred with: Patient Care Teams Call Center Director Relationship Specialty Start Date End Date Velasquez Valencia MD [address] [place] [address] PCP - General Family Medicine 09/09/22 documented as of this encounter
--- OUTSIDE RECORDS SUMMARY | 2025-01-06 17:59 | External Medical Summary | Summary of Care ---
Author Name Unknown Organization [facility] Address [address] [facility] [place] [address] Phone [phone] Care Team Providers Care Metal Trim Erector Name Role Phone Velasquez Valencia MD Primary Care Provider +1- [phone] Reason for Visit * Reason Onset Date Comments Hospital Follow-Up Patient is he re for a hospital follow up, was seen at [facility] for chest pain. Reports "feeling horrible"; states that his chest, l leg, and arm hurts all the time. Hospital Follow-Up 01/01/2025 Encounter Details Date Type Department Care Team (Late st Contact Info) Description 01/01/2025 2:20 PM EDT Office Visit [facility] [address] [facility] [place] [place] [address] Velasquez Valencia MD [address] [place] [address] Tachycardia*; Other chest pain; HTN, goal below 140/90; Type 2 diabetes mellitus with hemoglobin A1c goal of less than 7.0% ([facility]); Hospital discharge follow-up; Obstructive sleep apnea; Bronchitis, complicated; Hx of BKA, left (HCC); Class 3 severe obesity with serious comorbidity and body mass index (BMI) of 45.0 to 49.9 in adult, unspecified obesity type (HCC) Allergies Active Allergy Reactions Criticality Noted Date Comments Pioglitazone 07/19/2024 Cefaclor Unknown 07/26/2018 As child Empagliflozin Other (Please comment) 05/16/2021 DKA with hospitalization Nsaids High 04/19/2019 Gastric problems Other Reaction(s): gastroparesis, kidney problems, use with caution : hx esophagus damage documented as of this encounter (statuses as of 01/02/2025) Medications Ondansetron HCl 4 MG Oral Tablet [...] 180 Capsule 3 5 Active Omnipod 5 [id number] Pods Gen 5Indications:Typ e 2 diabetes mellitus with hemoglobin A1c goal of less than 7.0% (HCC) Use as directed. Change pod every 1 and 1/2 days 75 Each 3 12/14/2024 1:44 PM EST 5 Active metFORMIN HCl ER 500 MG Oral Tablet Extended Release 24 Hour (Glucophage XR)Indications:T ype 2 diabetes mellitus with hemoglobin A1c goal of less than 7.0% (HCC) Take 2 Tablets by mouth 2 times a day with morning and evening meals. 360 Tablet 4 5 Active documented as of this encounter (statuses as of 01/02/2025) Active Problems Problem Noted Date Diagnosed Date COPD, group B, by GOLD 2017 classification 11/27 Overview: Per COPD GOLD Classification Chronic diastolic congestive heart failure 11/06 Zmgcdjp-Jleyg-Otmyu disease 11/06/2024 Coronary artery disease invo lving nikolai coronary artery of nikolai heart without angina pectoris 10/17/2024 Well adult [...] as of this encounter (statuses as of 01/02/2025) Resolved Problems Problem Noted Date Diagnosed Date [...] as of this encounter (statuses as of 01/02/2025) Immunizations Name Administration Dates Next Due COVID-19 mRNA, LNP-s, No Pre serve, 2-Dose Series ([employer]) 10/21/2021,03/01/2021,02/07/2021 H1N1 2009 Influenza, IM 11/04/2009 Pneumococcal Conjugate Vacci ne, 20-valent ([id number]) 07/09/2023 Pneumococcal Polysaccharide PPV23 (Pneumovax) 11/03/2015,02/09/2006 Seasonal [...] Sign Reading Time Taken Comments Blood Pressure 106/54 01/01/2025 2:28 PM EDT Pulse 86 01/01/2025 2:28 PM EDT Temperature 36 C (96.8 F) 01/01/2025 2:2 8 PM EDT Respiratory Rate 16 01/01/2025 2:28 PM EDT Oxygen Saturation 88% 01/01/2025 2:2 8 PM EDT placed on 2L of oxygen Inhaled Oxygen Concentration - - Weight 163.2 kg (359 lb 14.4 oz) 01/01/2025 2:28 PM EDT Height 188 cm (6' 2.02") 01/01/2025 2:2 8 PM EDT Body Mass Index 46.18 01/01/2025 2:28 PM EDT documented in this encounter Functional [...] Progress Notes * Velasquez Valencia MD - 01/01/2025 5:37 PM EDT Subjective: Bry Akhtar Jr. is a 49 year old male here today for Chief Complaint Patient presents with Hospital Follow-Up Patient is here for a hospital follow up, was seen at [facility] for chest pain. Reports "feeling horrible"; states that his chest, l leg, and arm hurts all the time. Hospital Follow-Up History of Present Illness The patient, with a history of coronary artery disease, presents with ongoing chest pain similar tohis experience during a recent hospitalization. Admitted to [facility] 12/23/24 - 12/25/24 for chest pain, cough, significantly elevated BP. He suspects he has atrial fibrillation (AFib) due to symptoms such as rapid heart rate, cough, and head pain. The patient reports his heart rate has been noticeably faster than usual for the past two weeks, causing discomfort and breathlessness with minimal exertion.There was no evidence for atrial fibrillation on any studies from the hospital but the discharge summary indicates that he should have an outpt zio and cardiology follow up. There was no evidence jessy [place]. He has known moderate CAD in the left coronary artery by cath. In addition to cardiac concerns, the patient is experiencing issues with his left leg prosthesis. Over the past two weeks, the prosthesis has not been fitting due to persistent leg swelling. The patient reports pain around the knee area of the affected leg. The patient also expresses a desire for weight loss and is interested in gastric bypass surgery. However, he is hesitant about the required six-month program and the need to quit smoking. He would like to know if there are facilities that will offer gastric bypass surgery without the need for smoking cessation or a 6 month program. He was also felt to have bronchitis during the hospitalization and was treated with a course of augmentin. He is to have repeat labs today. 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 Current use of insulin ([facility]) 09/13/2017 DDD (degenerative disc disease), cervical 07/12/2019 Diabetes mellitus type 2, insulin dependent ([facility]) 07/05/2017 Diabetic polyneuropathy associated with type 2 diabetes mellitus ([facility]) 07/24/2016 Displacement of lumbar intervertebral disc without myelopathy DM type 2, goal: symptom mgmt ([facility]) 09/13/2017 DM type 2, not at goal ([facility]) Dyslipidemia, goal LDL below 70 07/24/2016 Gastroesophageal reflux disease without esophagitis 05/07/2020 Gastroparesis 08/27/2015 GERD (gastroesophageal reflux disease) History of DVT (deep vein thrombosis) 04/19/2019 HTN, goal below 140/90 12/23/2015 Per HTN Protocol #27. HTN, goal: symptom mgmt only 09/13/2017 IBS (irritable bowel syndrome) 08/27/2015 Intellectual disability 10/25/2019 Major depressive disorder, recurrent, severe without psychotic features ([facility]) 12/22/2016 Obesity, Class II, BMI 35-39.9, isolated (see actual BMI) 04/19/2019 OTHER osseochondrosis ankle Primary localized osteoarthrosis, lower leg Sleep apnea, obstructive Tobacco use disorder 12/22/2016 Type 2 diabetes mellitus with hemoglobin A1c goal of less than 8.0% ([facility]) 07/05/2017 Past Surgical History: Procedure Laterality Date ARTHO,SHOUL,W/ROTATOR CUFF Right 12/01/2019 ARTHROSCOPY SHOULDER ROTATOR CUFF performed by Judith Condon DO at [facility] COLONOSCOPY, DIAGNOSTIC (RECTUM) 04/18/2015 adenomatous polyp, repeat 5 yrs/[facility] COLONOSCOPY, DIAGNOSTIC (RECTUM) 04/15/2023 poor prep, repeat / [facility] COLONOSCOPY, DIAGNOSTIC (RECTUM) N/A 02/22/2024 normal/recall 5 years/COLONOSCOPY FLEXIBLE PROXIMAL DIAGNOSTIC performed by Marcela Del Valle MD at [facility] EGD, FLEXIBLE, DIAGNOSTIC 10/17/2014 mild-mod inflammation, repeat 1-2 mo/[facility] EGD, FLEXIBLE, DIAGNOSTIC 04/17/2015 normal bx/inpt [facility] EGD, FLEXIBLE, DIAGNOSTIC 05/08/2019 reflux esophagitis, gastritis, duodenitis, repeat 6 wks / [facility] EGD, FLEXIBLE, DIAGNOSTIC 08/18/2019 normal-EGD/[facility] EGD, FLEXIBLE, DIAGNOSTIC N/A 05/02/2020 biopsies normal/EGD EGD, FLEXIBLE, DIAGNOSTIC N/A 02/22/2024 antral gastritis/biopsies normal/ESOPHAGOGASTRODUODENOSCOPY (EGD), FLEXIBLE, TRANSORAL, DIAGNOSTIC performed by Marcela Del Valle MD at [facility] EGD, FLEXIBLE, DIAGNOSTIC N/A 08/02/2024 medium amount of food stomach/repeat to be scheduled/ESOPHAGOGASTRODUODENOSCOPY (EGD), FLEXIBLE, TRANSORAL, DIAGNOSTIC performed by Belen Jones DO at OR [facility] EGD, FLEXIBLE, DIAGNOSTIC N/A 10/26/2024 ESOPHAGOGASTRODUODENOSCOPY (EGD), FLEXIBLE, TRANSORAL, DIAGNOSTIC performed by Bipin Moss MD at [facility]COPY [facility] EGD, W/ENDOSCOPIC US N/A 10/26/2024 ESOPHAGOGASTRODUODENOSCOPY (EGD), FLEXIBLE, TRANSORAL, ENDOSCOPIC ULTRASOUND performed by Bipin Moss MD at [facility]OSCOPY [facility] INJECT DX/THER SUBSTANCE INTERLAMINAR CERVICAL/THORACIC W IMAGE GUIDE 08/17/2019 INJECTION SPINE LUMBAR CERVICAL OR THORACIC performed by Dario Nails DO at OR [facility] KNEE ARTHROSCOPY, DIAGNOSTIC l knee REMOVAL OF TONSILS, UNDER AGE 10 SHOULDER ARTHROSCOPY, BICEPS TENODESIS Right 12/01/2019 ARTHROSCOPY SHOULDER BICEP TENODESIS performed by Judith Condon DO at OR [facility] SHOULDER ARTHROSCOPY/DECOMPRESSION Right 12/01/2019 ARTHROSCOPY SHOULDER SUBACROMIAL DECOMPRESSION performed by Judith Condon DO at OR [facility] Review of patient's allergies indicates: Allergen Reactions Nsaids Gastric problems Other Reaction(s): gastroparesis, kidney problems, use with caution : hx esophagus damage Actos [Pioglitazone] Ceclor [Cefaclor] Unknown As child Jardiance [Empagliflozin] Other (Please comment) DKA with hospitalization Current Outpatient Medications Medication Sig Dispense Refill Ondansetron HCl 4 MG Oral Tablet Take 1 Tablet by mouth every 8 hours as needed for Nausea. 20 Tablet 0 BD Pen Needle Short U/F 31G X 8 MM (Insulin Pen Needle) Use to inject insulin 5 times daily 500 Each 3 Polyethylene Glycol 3350 17 GM/SCOOP Oral Powder (Miralax) Take 1 scoop daily in 8 ounces of water.510 g 5 OneTouch Delica Lancets 33G Use to check blood sugars once daily as needed 100 Each 0 Dexcom G6 Sensor Use as directed every 10 days. 9 Each 5 Dexcom G6 Transmitter Use as directed. Change every 90 days 1 Each 5 Omeprazole 40 MG Oral Capsule Delayed Release (PriLOSEC) Take 1 Capsule by mouth in the morning. 90Capsule 3 Dicyclomine HCl 10 MG Oral Capsule (Bentyl) Take 1 Capsule by mouth 4 times a day as needed for Diarrhea. Aspirin 81 MG Oral Tablet Delayed Release (Aspirin EC Low Dose) Take 1 Tablet by mouth in the morning. Famotidine 20 MG Oral Tablet (Pepcid) Take 1 Tablet by mouth at bedtime. Losartan Potassium 50 MG Oral Tablet (Cozaar) Take 1 Tablet by mouth in the morning and 1 Tablet before bedtime. GoodSense Arthritis Pain 1 % External Gel OneTouch Verio In Vitro Strip (Glucose Blood) Use to check blood sugar once daily as needed 100 Strip 4 Saccharomyces boulardii 250 MG Oral Capsule (Florastor) Take 1 Capsule by mouth in the morning and 1 Capsule before bedtime. 30 Capsule 0 Torsemide 20 MG Oral Tablet (Demadex) Take 1 Tablet by mouth in the morning. Spironolactone 25 MG Oral Tablet (Aldactone) Take 1 Tablet by mouth in the morning. 90 Tablet 3 Terazosin HCl 1 MG Oral Capsule (Hytrin) Take 1 Capsule by mouth at bedtime. 90 Capsule 3 Atorvastatin Calcium 20 MG Oral Tablet (Lipitor) Take 1 Tablet by mouth at bedtime. 90 Tablet 3 Metoprolol Succinate ER 100 MG Oral Tablet Extended Release 24 Hour (toPROL XL) Take 1 Tablet by mouth in the morning and 1 Tablet before bedtime. 180 Tablet 3 Metoprolol Succinate ER 25 MG Oral Tablet Extended Release 24 Hour (toPROL XL) Take 1 Tablet by mouth in the morning and 1 Tablet before bedtime. 180 Tablet 3 amLODIPine Besylate 5 MG Oral Tablet (Norvasc) Take 1 Tablet by mouth in the morning. Gabapentin 300 MG Oral Capsule (Neurontin) Take 1 Capsule by mouth 2 times a day. 180 Capsule 3 Omnipod 5 [id number] Pods Gen 5 Use as directed. Change pod every 1 and 1/2 days 75 Each 3 metFORMIN HCl ER 500 MG Oral Tablet Extended Release 24 Hour (Glucophage XR) Take 2 Tablets by mouth 2 times a day with morning and evening meals. 360 Tablet 4 Haloperidol 1 MG Oral Tablet (Haldol) Take 1 Tablet by mouth in the morning. Insulin Aspart 100 UNIT/ML Injection Solution (NovoLOG) Inject up to 140 units daily using Omnipod 5 (Patient not taking: Reported on 01/01/2025) 140 mL 4 No current facility-administered medications for this visit. Objective: BP 106/54 | Pulse 86 | Temp 96.8 F (36 C) (Tympanic) | Resp 16 | Ht 6' 2.02" (1.88 m) | Wt (!) 359 lb 14.4 oz (163.2 kg) | SpO2 88% Comment: placed on 2L of oxygen | BMI 46.18 kg/m |BSA 2.92 m GEN: NAD CHEST: CTA B - no wheeze, rhonchi, rales. CV: RRR ABD: Soft, NT/ND, No HSM, NABS EXT: No c,c,e Assessment & Plan Chest pain He experiences intermittent chest pain with palpitations, tachycardia, and dyspnea. Although he is concerned about AFib, it has not been confirmed on any studies.. Differential diagnoses include musculoskeletal issues, blood pressure fluctuations, and bronchitis. A Zio patch is preferred for arrhythmia monitoring. Apply the Zio patch for 7 days to monitor for AFib or other arrhythmias. Follow up with cardiology as scheduled on January 30. Regularly monitor blood pressure. Complete the course of Augmentin. Consider an outpatient sleep study. Continue supplemental oxygen at bedtime. Order follow-up blood work for potassium and kidney function. Left leg swelling and pain He has persistent swelling and pain in the left leg affecting prosthesis fit, with no pitting edemaor infection. Pain is localized around the knee. Contact an orthotic expert at [facility] to address prosthesis fit issues. Obesity, BMI 46 He is interested in bariatric surgery but unwilling to undergo a six-month preparatory program. He has concerns about the smoking cessation requirement. Previous weight loss medications were ineffective or contraindicated due to cardiac concerns. Bariatric surgery offers 40-60% weight loss but requires program completion for insurance coverage and surgical justification. Smoking cessation He is advised to quit smoking, especially in the context of potential bariatric surgery, to reduce surgical risks and improve outcomes. Advise smoking cessation. 40 min with pt and chart review, documentation Velasquez Valencia MD documented in this encounter Nursing Notes * Emily Wang MED ASSIST - 01/01/2025 2:35 PM EDT The patient has been properly identified by confirmation of name and date of . Chief Complaint Patient presents with Hospital Follow-Up Patient is here for a hospital follow up, was seen at [facility] for chest pain. Reports "feeling horrible"; states that his chest, l leg, and arm hurts all the time. documented in this encounter Plan of Treatment Upcoming Encounters Date Type Department Care Team (Late st Contact Info) Description 01/29/2025 9:30 AM EDT Imaging Radiology [address], [place] [address] Sandra [place] [phone] 01/30/2025 3:00 PM EDT Office Visit Cardiology, [facility] [address] [facility] [place] [address] [place], [address] [facility] [place] [address] 02/02/2025 10:10 AM EDT Office Visit [facility] [address] [facility] [phone] [address] [place] [address] [facility] [address] 06/04/2025 9:30 AM EDT Office Visit Cardiology, [facility] [address] [facility] [place] [address] Sweta Loving CRNP [address] [facility] [address] 07/09/2025 10:00 AM EDT Office Visit Pulmonary Medicine, [facility] [address] [facility] [place] [address] Vishal Wallace MD [address] [place] [facility] [place] [address] Scheduled Orders Name Type Priority Associated Diagnoses Orde r Schedule BASIC METABOLIC PANEL Lab Routine Type 2 diabetes mellitus with hemoglobin A1c goal of less than 7.0% (HCC) Expected: 01/01/2025 (Approximate), Expires: 01/01/2026 EXTERNAL EKG 2 TO 7 DAYS Holter Routine Tachycardia Expected: 01/02/2025 (Approximate), Expires: 01/01/2026 Scheduled Procedures Name Priority Associated Diagnoses Date/Ti [...] this encounter Medical Devices Implanted Type Area Junior Php Developer Device Identifier Shelf Expiration Date Model / Serial / Lot Suture [place] Dbl Load 4.75mm - [id number] Implanted:Qty: 1 on 12/01/2019 by Judith Condon DO at OR [facility] Right: Shoulder [employer] 07/17/2021 AR-2324BCT -2 / / [id number] Suture [place] Dbl Load 5.5mm - [id number] Implanted:Qty: 1 on 12/01/2019 by Judith Condon DO at OR [facility] Right: Shoulder [employer] 09/16/2021 AR-2323BCT -2 / / [id number] documented as of this encounter Visit Diagnoses Diagnosis Tachycardia- Primary Tachycardia, unspecified Other chest pain HTN, goal below 140/90 Unspecified essential hypertension Type 2 diabetes mellitus with hemoglobin A1c goal of less than 7.0% ([facility]) Hospital discharge follow-up Other follow-up examination Obstructive sleep apnea Obstructive sleep apnea (adult) (pediatric) Bronchitis, complicated Bronchitis, not specified as acute or chronic Hx of BKA, left ([facility]) Class 3 severe obesity with serious comorbidity and body mass index (BMI) of 45.0 to 49.9 in adult, unspecified obesity type ([facility]) documented in this encounter Advance Directives [...] patient have Health Care Power of Attor nilse? No * Full Code Date Activated Date [...] Advance Directives occurred with: Patient Care Teams Metal Trim Erector Relationship Specialty Start Date End Date Velasquez Valencia MD [address] [place] [address] PCP - General Family Medicine 09/09/22 documented as of this encounter
--- OUTSIDE RECORDS SUMMARY | 2025-01-06 17:59 | External Medical Summary | Summary of Care ---
Author Name Unknown Organization [facility] Address [address] [facility] [address] Phone [phone] Care Team Providers Care Group Exercise Manager Name Role Phone Velasquez Valencia MD Primary Care Provider +1- [phone] Reason for Visit * Reason Onset Date Comments Pre Cert/Prior Auth 01/02/2025 Omnipod quin tity limit Encounter Details Date Type Department Care Team (Late st Contact Info) Description 01/02/2025 [facility]phone [facility] [facility] [place] [address] Gisel Butler, [facility] [address] [facility] [place] [phone] Pre Cert/Prior Auth (Omnipod quantity limit) Allergies [...] 360 Tablet 4 5 Active Omnipod 5 [id number] Pods Gen 5Indications:Ty pe 2 diabetes mellitus with hemoglobin A1c goal of less than 7.0% (HCC) Use as directed. Change pod every 1 day 90 Each 3 5 Active Omnipod 5 [id number] Pods Gen 5Indications:Ty pe 2 diabetes mellitus [...] Classification Chronic diastolic congestive heart failure 11/06 Krmjxcb-Rjrgt-Zoicr disease 11/06/2024 Coronary artery disease invo lving [place] coronary artery of [place] heart without angina pectoris 10/17/2024 Well adult [...] mRNA, LNP-s, No Pre serve, 2-Dose Series ([employer]) 10/21/2021,03/01/2021,02/07/2021 H1N1 2009 Influenza, IM 11/04/2009 Pneumococcal Conjugate Vacci ne, 20-valent ([id number]) 07/09/2023 Pneumococcal Polysaccharide PPV23 (Pneumovax) 11/03/2015,02/09/2006 Seasonal [...] Notes * Telephone Encounter - Gisel Butler [facility] - 01/02/2025 1:40 PM EDT Patient changing omnipod every day. PA submitted to insurance for coverage. Submitted PA for Quantity increase for OP5 pods on PromptPA. Prior Auth (EOC) ID: [id number] Drug/Service Name: OMNIPOD 5 [id number] PODS (GEN 5) Patient: ROBERT BARAJAS Date Requested: 01/02/2025 1:46:11 PM MemberID: [id number] : 1975 Follow up in 1 day to check for status Gisel Butler RPh 01/02/25 1:42 PM documented in this encounter Plan of Treatment Upcoming Encounters Date Type Department Care Team (Late st Contact Info) Description 01/29/2025 9:30 AM EDT Imaging Radiology [facility] [facility] [address] [place] [phone] 01/30/2025 3:00 PM EDT Office Visit Cardiology, [facility] [address] [place] [address] [place], [address] [place] [address] 02/02/2025 10:10 AM EDT Office Visit Pharmacy, Sharad Wallace [address] [place] [phone] [facility] [address] [facility] [address] 06/04/2025 9:30 AM EDT Office Visit Cardiology, [facility] [address] [facility] [place] [address] Sweta Loving CRNP [address] [facility] [place] [phone] 07/09/2025 10:00 AM EDT Office Visit Pulmonary Medicine, [facility] [address] [facility] [place] [address] Vishal Wallace MD [address] [facility] [address] Scheduled Procedures Name Priority Associated Diagnoses Date/Ti [...] 04/19/2024 DISCUSS TOBACCO CESSATION (REFER TO SMARTSET #8025) 07/19/2025 07/19/2024, 10/16/2022 Diabetic Eye Exam 09/22/2025 [...] this encounter Medical Devices Implanted Type Area Clinical Documentation Clerk Device Identifier Shelf Expiration Date Model / Serial / Lot Suture [place] Dbl Load 4.75mm - [id number] Implanted:Qty: 1 on 12/01/2019 by Judith Condon DO at OR [facility] Right: Shoulder [employer] 07/17/2021 AR-2324BCT -2 / / [id number] Suture [place] Dbl Load 5.5mm - [id number] Implanted:Qty: 1 on 12/01/2019 by Judith Condon DO at OR [facility] Right: Shoulder [employer] 09/16/2021 AR-2323BCT -2 / / [id number] documented as of this encounter Visit Diagnoses Diagnosis Type 2 diabetes mellitus with hemoglobin A1c goal of less than 7.0% ([facility]) documented in this encounter Advance Directives * [...] Advance Directives occurred with: Patient Care Teams Group Exercise Manager Relationship Specialty Start Date End Date Velasquez Valencia MD [address] [place] [address] PCP - General Family Medicine 09/09/22 documented as of this encounter
--- OUTSIDE RECORDS SUMMARY | 2025-01-06 17:59 | External Medical Summary | Summary of Care ---
Author Name Unknown Organization [facility] Address [address] [facility] [place] [address] Phone [phone] Care Team Providers Care Bridge Instructor Name Role Phone Velasquez Valencia MD Primary Care Provider +1- [phone] Reason for Visit * Reason Onset Date Comments Nurse Documentation 01/02/2025 Encounter Details Date Type Department Care Team (Late st Contact Info) Description [facility]/02[facility] [address] [facility] [place] [phone] Velasquez Valencia MD [address] [place] [address] Nurse Documentation Allergies Active Allergy Reactions [...] 360 Tablet 4 5 Active Omnipod 5 [id number] Pods Gen 5Indications:Typ e 2 diabetes mellitus with hemoglobin A1c goal of less than 7.0% (HCC) Use as directed. Change pod every 1 day 90 Each 3 Active documented as of this encounter (statuses as of 01/03/2025) Active Problems Problem Noted Date Diagnosed Date COPD, group B, by GOLD 2017 classification 11/27 Overview: Per COPD GOLD Classification Chronic diastolic congestive heart failure 11/06 Legdvfp-Zzpws-Wjzsr disease 11/06/2024 Coronary artery disease invo lving [place] coronary artery of [place] heart without angina pectoris 10/17/2024 Well adult [...] mRNA, LNP-s, No Pre serve, 2-Dose Series ([employer]) 10/21/2021,03/01/2021,02/07/2021 H1N1 2009 Influenza, IM 11/04/2009 Pneumococcal Conjugate Vacci ne, 20-valent ([id number]) 07/09/2023 Pneumococcal Polysaccharide PPV23 (Pneumovax) 11/03/2015,02/09/2006 Seasonal [...] Encounter - Emily Wang MED ASSIST - 01/02/2025 5:33 PM EDT Received Fax for BFPROVIDERS: Dr. Velasquez Valencia PT PLAN OF CARE/EVALUATION received from [facility] and FAXED documented in this encounter Plan of Treatment Upcoming Encounters Date Type Department Care Team (Late st Contact Info) Description 01/29/2025 9:30 AM EDT Imaging [facility] [address] [place] [phone] 01/30/2025 3:00 PM EDT Office Visit Cardiology, [facility] [address] [facility] [place] [address] [place], DO [address] [facility] [place] [address] 02/02/2025 10:10 AM EDT Office Visit Pharm[facility], [facility] [address] [facility] [place] [phone] [facility] [address] [place] [address] [place] [address] 06/04/2025 9:30 AM EDT Office Visit Cardiology, [facility] [address] [facility] [place] [address] Sweta Loving CRNP [address] [facility] [place] [address] 07/09/2025 10:00 AM EDT Office Visit Pulmonary Medicine, [facility] [address] [facility] [place] [address] Vishal Wallace MD [address] [place] [address] Scheduled Procedures Name Priority Associated Diagnoses Date/Ti [...] 04/19/2024 DISCUSS TOBACCO CESSATION (REFER TO SMARTSET #1681) 07/19/2025 07/19/2024, 10/16/2022 Diabetic Eye Exam 09/22/2025 [...] this encounter Medical Devices Implanted Type Area Tmd Teacher Device Identifier Shelf Expiration Date Model / Serial / Lot Suture [place] Dbl Load 4.75mm - [id number] Implanted:Qty: 1 on 12/01/2019 by Judith Condon DO at OR [facility] Right: Shoulder [employer] 07/17/2021 AR-2324BCT -2 / / [id number] Suture [place] Dbl Load 5.5mm - [id number] Implanted:Qty: 1 on 12/01/2019 by Judith Condon DO at OR [facility] Right: Shoulder [employer] 09/16/2021 AR-2323BCT -2 / / [id number] documented as of this encounter Advance Directives [...] Advance Directives occurred with: Patient Care Teams Bridge Instructor Relationship Specialty Start Date End Date Velasquez Valencia MD [address] [place] [address] PCP - General Family Medicine 09/09/22 documented as of this encounter
--- OUTSIDE RECORDS SUMMARY | 2025-01-06 18:00 | External Medical Summary | Summary of Care ---
Author Name Unknown Organization [facility] Address [address] [facility] [place] [address] Phone [phone] Care Team Providers Care Knockout Worker Name Role Phone Velasquez Valencia MD Primary Care Provider +1- [phone] Reason for Visit * Reason Comments Dosage Adjustment In Person (Anticoag Cl inic) Diabetes Follow-Up Insulin Pump Encounter Details Date Type Department Care Team (Late st Contact Info) Description 12/29/2024 2:50 PM EDT Office Visit Pharmacy, [facility] [address] [place] [address] [place], [facility] [address] [place] [address] Type 2 diabetes mellitus with hemoglobin A1c goal of less than 7.0% ([facility])* Allergies Active Allergy Reactions Criticality Noted Date Comments Pioglitazone 07/19/2024 Cefaclor Unknown 07/26/2018 As child Empagliflozin Other (Please comment) 05/16/2021 DKA with hospitalization Nsaids High 04/19/2019 Gastric problems Other Reaction(s): gastroparesis, kidney problems, use with caution : hx esophagus damage documented as of this encounter (statuses as of 12/29/2024) Medications Ondansetron HCl 4 MG Oral Tablet Take 1 Tablet by mouth every 8 hours as needed for Nausea. 20 Tablet 4 11:40 AM EST 11/05/19 24 Active BD Pen Needle Short U/F 31G X 8 MM (Insulin Pen Needle)Indicati ons:Type 2 diabetes mellitus with hemoglobin A1c goal of less than 7.0% (HCC) Use to inject insulin 5 times daily 500 Each 3 5 12:18 PM EST 01/19/20 24 Active Polyethylene Glycol 3350 17 GM/SCOOP Oral Powder (Miralax) Take 1 scoop daily in 8 ounces of water. 510 g 5 04/21/20 24 Active OneTouch Delica Lancets 33GIndications: Type 2 diabetes mellitus with hemoglobin A1c goal of less than 7.0% (HCC) Use to check blood sugars once daily as needed 100 Each 4 5:28 PM EDT 05/09/20 24 Active Dexcom G6 SensorIndicatio ns:Type 2 diabetes mellitus with hemoglobin A1c goal of less than 7.0% (HCC) Use as directed every 10 days. 9 Each 5 5 2:30 PM EST 07/18/20 24 Active Dexcom G6 TransmitterIndi cations:Type 2 diabetes mellitus with hemoglobin A1c goal of less than 7.0% (HCC) Use as directed. Change every 90 days 1 Each 5 4 11:12 AM EST 07/18/20 24 Active Haloperidol 1 MG Oral Tablet (Haldol) Take 1 Tablet by mouth in the morning. 08/08/20 24 Active Omeprazole 40 MG Oral Capsule Delayed Release (PriLOSEC) Take 1 Capsule by mouth in the morning. 90 Capsule 3 08/22/20 24 Active Dicyclomine HCl 10 MG Oral Capsule [...] GoodSense Arthritis Pain 1 % External Gel 10/02/20 24 Active OneTouch Verio In Vitro Strip (Glucose Blood)Indicatio ns:Type 2 diabetes mellitus with hemoglobin A1c goal of less than 7.0% (HCC) Use to check blood sugar once daily as needed 100 Strip 4 4 12:51 PM EST 10/13/20 24 Active Insulin Aspart 100 UNIT/ML Injection Solution (NovoLOG)Indica tions:Type 2 diabetes mellitus with hemoglobin A1c goal of less than 7.0% (HCC) Inject up to 140 units daily using Omnipod 5 140 mL 4 5 11:26 AM EST 10/25/19 25 Active Saccharomyces boulardii 250 MG Oral Capsule (Florastor)Yanet cations:Diarrhe a, unspecified type Take 1 Capsule by mouth in the morning and 1 Capsule before bedtime. 30 Capsule 11/06/19 25 Active Torsemide 20 MG Oral Tablet (Demadex) Take 1 Tablet by mouth in the morning. 11/06/19 25 Active Spironolactone 25 MG Oral Tablet (Aldactone)Yanet cations:HTN, goal below 140/90 Take 1 Tablet by mouth in the morning. 90 Tablet 3 11/15/19 25 Active Terazosin HCl 1 MG Oral Capsule (Hytrin) Take 1 Capsule by mouth at bedtime. 90 Capsule 3 11/21/19 25 Active Atorvastatin Calcium 20 MG Oral Tablet (Lipitor) Take 1 Tablet by mouth at bedtime. 90 Tablet 3 11/21/19 25 Active Metoprolol Succinate ER 100 MG Oral Tablet Extended Release 24 Hour (toPROL XL) Take 1 Tablet by mouth in the morning and 1 Tablet before bedtime. 180 Tablet 3 11/23/19 25 Active Metoprolol Succinate ER 25 MG Oral Tablet Extended Release 24 Hour (toPROL XL) Take 1 Tablet by mouth in the morning and 1 Tablet before bedtime. 180 Tablet 3 11/23/19 25 Active amLODIPine Besylate 5 MG Oral Tablet (Norvasc) Take 1 Tablet by mouth in the morning. Active Gabapentin 300 MG Oral Capsule (Neurontin)Yanet cations:Neuropa thy Take 1 Capsule by mouth 2 times a day. 180 Capsule 3 11/29/19 25 Active Omnipod 5 [id number] Pods Gen 5Indications:Ty pe 2 diabetes mellitus with hemoglobin A1c goal of less than 7.0% ([facility]) Use as directed. Change pod every 1 and 1/2 days 75 Each 3 5 1:44 PM EST 12/11/19 25 Active metFORMIN HCl ER 500 MG Oral Tablet Extended Release 24 Hour (Glucophage XR)Indications: Type 2 diabetes mellitus with hemoglobin A1c goal of less than 7.0% (HCC) Take 2 Tablets by mouth 2 times a day with morning and evening meals. 360 Tablet 4 12/30/19 Active metFORMIN HCl ER 500 MG Oral Tablet Extended Release 24 Hour (Glucophage XR)Indications: Type 2 diabetes mellitus with hemoglobin A1c goal of less than 7.0% (HCC) Take 1 Tablet by mouth daily with dinner. 90 Tablet 1 5 9:39 AM EST 11/27/19 25 025 Discontinued(Re fill) Pioglitazone HCl 45 MG Oral Tablet (Actos) Take 1 Tablet by mouth in the morning. 025 Discontinued documented as of this encounter (statuses as of 12/29/2024) Active Problems Problem Noted Date Diagnosed Date COPD, group B, by GOLD 2017 classification 11/27 Overview: Per COPD GOLD Classification Chronic diastolic congestive heart failure 11/06 Dlaifsj-Mocbd-Jgarp disease 11/06/2024 Coronary artery disease invo lving [place] coronary artery of [place] heart without angina pectoris 10/17/2024 Well adult [...] as of this encounter (statuses as of 12/29/2024) Resolved Problems Problem Noted Date Diagnosed Date [...] as of this encounter (statuses as of 12/29/2024) Immunizations Name Administration Dates Next Due COVID-19 mRNA, LNP-s, No Pre serve, 2-Dose Series ([employer] 10/21/2021,03/01/2021,02/07/2021 H1N1 2009 Influenza, IM 11/04/2009 Pneumococcal Conjugate Vacci ne, 20-valent ([id number]) 07/09/2023 Pneumococcal Polysaccharide PPV23 (Pneumovax) 11/03/2015,02/09/2006 Seasonal [...] documented in this encounter Progress Notes * Carrie Gisel Teran, [facility] - 12/29/2024 2:53 PM EDT Images from the original note were not included. Medication Therapy [facility] - Diabetes Management Progress Note Bry Akhtar Jr., identified by name and date of , is a 49 year old male being seen for diabetes management/education. Patient presents for return diabetic visit. DIABETES: Current diabetic medications: START Metformin ER 500 mg once daily pt reports taking 4 tabs daily without any ill effects Omnipod 5 Insulin Pump Insulin: Novolog U-100 Basal Rate: 2.8 units/hour; max basal rate = 5.5 u/hour Bolus: 70 g with any meal --> set up in custom foods; note: max bolus is 30 units Bolus Calculator: on and using ICR: 3 (strengthened) ISF: 9 (strengthened) Bolus Calculator: Target B Correct above: 150 Active Insulin Time: 2 hours Medication Injection Site: Abdomen Lifestyle: Diet: unchanged; ate 2-3 hamburgers from [employer] today Glucose Review/SMBG: Readings obtained from patient device Hypoglycemia: Does your blood sugar go below 70 mg/dL? No Hyperglycemia symptoms present: none Recent Labs Units 05/09/24 1359 03/07/24 0517 01/14/24 1059 HEMOGLOBIN A1C - [facility] % 8.6* -- 10.2* HEMOGLOBIN, [id number] LAB % -- 10.0* -- A1c at [facility] December 2024= 10.9% Recent Labs Units 11/27/24 0851 11/15/24 0831 10/25/24 0913 ESTIMATED GLOMERULAR FILTRATION RATE - [facility] mL/min 72 68 >90 CREATININE - [facility] mg/dL 1.2 1.3* 1.0 HYPERTENSION: Patient on ACEi/ARB: yes BP Readings from Last 3 Encounters: 11/27/24 128/80 11/15/24 136/54 11/06/24 138/82 Blood pressure at goal: yes HYPERLIPIDEMIA: Recent [...] (1 of 2) Never done COVID-19 Vaccine (2023-) 06/18/2024 Diabetic Foot Exam 07/09/2024 HbA1c 11/09/2024 Albumin/Creatinine Ratio 01/13/2025 ASSESSMENT & PLAN: ICD-10-CM 1. Type 2 diabetes mellitus with hemoglobin A1c goal of less than 7.0% ([facility]) E11.9 Considerations: - Jardiance caused DKA - hx of acute pancreatitis 12/14/23 & 03/2024- avoiding GLPs and GIPs Glycemic control is unstable and not at goal Patient agreeable to adjust medications as noted below. At this point, only able to change target BG for pump. He is changing his pod every day. Inputting carbs appropriately. Max metformin. I had candid conversation with patient today about his eating habits. He needs to make improvements. Encouraged him to have 1 salad per week, cut out fried foods/pasta/potatoes/pizza. Informed him that cereal is not a snack. There is a chance at this point that we need to consider using concentrated insulin in his insulin pump, but that comes along with safety risks and concerns. I would plan to coordinate with PCP and the omnipod representatives. It would not be a switch that I would take lightly. Patient to SMBG at least 4 times daily, before each meal and at bedtime. Patient aware to contact clinic if any hypoglycemia before next visit. Reviewed rule of 15s. Reviewed appropriate management of hyperglycemia as noted in pump start documentation. MEDICATION CHANGES: yes, see below; [facility] Diabetic Medications: Metformin ER 500 mg 2 tabs twice daily Omnipod 5 Insulin Pump Insulin: Novolog U-100 Basal Rate: 2.8 units/hour; max basal rate = 5.5 u/hour Bolus: 70 g with any meal --> set up in custom foods; note: max bolus is 30 units Bolus Calculator: on and using ICR: 3 ISF: 9 Bolus Calculator: Target B (strengthened) Correct above: 130 (strengthened) Active Insulin Time: 2 hours HEALTH MAINTENANCE INTERVENTIONS: Labs: Up to Date-- A1c completed at [facility] end september Immunizations: due for shingrix Foot Exam: due Eye Exam: Up to Date Annual Wellness Visit: n/a FOLLOW UP: Return to clinic in 4 weeks 02/02/2025 I spent a total of 30-39 minutes (exact time 36 mins) on the date of service in preparation, delivery, and documentation of the care provided to Bry Akhtar JrZach excluding any time spent in the performance of separately billed services. Gisel Butler, PharmD, BCACP Clinical Pharmacist Medication Therapy Disease Management 12/29/2024, 2:53 PM documented in this encounter Plan of Treatment Upcoming Encounters Date Type Department Care Team (Late st Contact Info) Description 01/01/2025 2:20 PM EDT [facility] [address] [place] [phone] Velasquez Valencia MD [address] [place] [address] 01/29/2025 9:30 AM EDT Imaging Radiology [facility] [address] [place] [phone] 01/30/2025 3:00 PM EDT Office Visit Cardiology, [facility] 132 [facility] [place], [place] [address] [place], 132 [facility] [place] [address] 02/02/2025 10:10 AM EDT Office Visit Pharmacy, [facility] [address] [facility] [phone] [facility] [address] [facility] [address] 06/04/2025 9:30 AM EDT Office Visit Cardiology, [facility] 132 [place] [address] Sweta Loving CRNP [address] [place] [address] 07/09/2025 10:00 AM EDT Office Visit Pulmonary Medicine, [facility] 132 [place] [address] Vishal Wallace MD [address] [facility] [address] Scheduled Procedures Name Priority Associated Diagnoses Date/Ti [...] this encounter Medical Devices Implanted Type Area Vamp Strap Ironer Device Identifier Shelf Expiration Date Model / Serial / Lot Suture [place] Dbl Load 4.75mm - [id number] Implanted:Qty: 1 on 12/01/2019 by Judith Condon DO at OR [facility] Right: Shoulder [employer] 07/17/2021 AR-2324BCT -2 / / [id number] Suture [place] Dbl Load 5.5mm - [id number] Implanted:Qty: 1 on 12/01/2019 by Judith Condon DO at OR [facility] Right: Shoulder [employer] 09/16/2021 AR-2323BCT -2 / / [id number] documented as of this encounter Visit Diagnoses Diagnosis Type 2 diabetes mellitus with hemoglobin A1c goal of less than 7.0% ([facility])- Primary documented in this encounter Advance Directives [...] Advance Directives occurred with: Patient Care Teams Knockout Worker Relationship Specialty Start Date End Date Velasquez Valencia MD [address] [place] [address] PCP - General Family Medicine 09/09/22 documented as of this encounter
--- OUTSIDE RECORDS SUMMARY | 2025-01-06 18:00 | External Medical Summary | Summary of Care ---
Author Name Unknown Organization [facility] Address [address] [facility] [place] [address] Phone [phone] Care Team Providers Care Information Resources Director Name Role Phone Velasquez Valencia MD Primary Care Provider +1- [phone] Reason for Visit * Reason Onset Date Comments Hospital Follow-Up 12/25/2024 Encounter Details Date Type Department Care Team (Late st Contact Info) Description 12/25/2024 Telephone Cardiology, [facility] [address] [place] [address] [place], [address] [place] [address] Hospital Follow-Up Allergies Active Allergy Reactions Criticality Noted Date Comments Pioglitazone 07/19/2024 Cefaclor Unknown 07/26/2018 As child Empagliflozin Other (Please comment) 05/16/2021 DKA with hospitalization Nsaids High 04/19/2019 Gastric problems Other Reaction(s): gastroparesis, kidney problems, use with caution : hx esophagus damage documented as of this encounter (statuses as of 12/26/2024) Medications Ondansetron HCl 4 MG Oral Tablet [...] 180 Capsule 3 5 Active Omnipod 5 [id number] Pods Gen 5Indications:Typ e 2 diabetes mellitus with hemoglobin A1c goal of less than 7.0% ([facility]) Use as directed. Change pod every 1 and 1/2 days 75 Each 3 12/14/2024 1:44 PM EST Active documented as of this encounter (statuses as of 12/26/2024) Active Problems Problem Noted Date Diagnosed Date COPD, group B, by GOLD 2017 classification 11/27 Overview: Per COPD GOLD Classification Chronic diastolic congestive heart failure 11/06 Guayfrg-Zylvi-Pflvk disease 11/06/2024 Coronary artery disease invo lving [place] coronary artery of [place] heart without angina pectoris 10/17/2024 Well adult [...] as of this encounter (statuses as of 12/26/2024) Resolved Problems Problem Noted Date Diagnosed Date [...] as of this encounter (statuses as of 12/26/2024) Immunizations Name Administration Dates Next Due COVID-19 mRNA, LNP-s, No Pre serve, 2-Dose Series ([employer]) 10/21/2021,03/01/2021,02/07/2021 H1N1 2009 Influenza, IM 11/04/2009 Pneumococcal Conjugate Vacci ne, 20-valent ([id number]) 07/09/2023 Pneumococcal Polysaccharide PPV23 (Pneumovax) 11/03/2015,02/09/2006 Seasonal [...] encounter Miscellaneous Notes * Telephone Encounter - Diane Olsen RN - 12/25/2024 12:03 PM EDT Bry Akhtar Jr. was discharged from [facility] on 12/25/24. Patient admitted for ACS, seen by cardiology, and needs a follow up appointment ( but only wants tosee Dr. [place]). documented in this encounter Plan of Treatment Upcoming Encounters Date Type Department Care Team (Late st Contact Info) Description 12/29/2024 2:50 PM EDT Office Visit Pharmacy, [facility] [address] [place] [phone] [facility] [place] [address] 01/01/2025 2:20 PM EDT Office Visit Family Practice, [facility] [place] [phone] Velasquez Valencia MD 226 [facility] [place] [address] 01/29/2025 9:30 AM EDT Imaging Radiology [facility] 1st Floor, [place] [address] [place] [phone] 01/30/2025 3:00 PM EDT Office Visit Cardiology, [facility] [address] [place] [address] [place], [address] [place] [address] 06/04/2025 9:30 AM EDT Office Visit Cardiology, [facility] 132 [facility] [place] [address] Sweta Loving CRNP [address] [place] [id number] 07/09/2025 10:00 AM EDT Office Visit Pulmonary Medicine, [facility] 132 [facility] [place] [address] Vishal Wallace MD [address] [facility] [place] [address] Scheduled Procedures Name Priority Associated Diagnoses Date/Ti [...] 04/19/2024 DISCUSS TOBACCO CESSATION (REFER TO SMARTSET #9311) 07/19/2025 07/19/2024, 10/16/2022 Diabetic Eye Exam 09/22/2025 [...] this encounter Medical Devices Implanted Type Area Technical Recruiter Device Identifier Shelf Expiration Date Model / Serial / Lot Suture [place] Dbl Load 4.75mm - [id number] Implanted:Qty: 1 on 12/01/2019 by Judith Condon DO at OR [facility] Right: Shoulder [employer] 07/17/2021 AR-2324BCT -2 / / [id number] Suture [place] Dbl Load 5.5mm - [id number] Implanted:Qty: 1 on 12/01/2019 by Judith Condon DO at OR [facility] Right: Shoulder [employer] 09/16/2021 AR-2323BCT -2 / / [id number] documented as of this encounter Advance Directives [...] Advance Directives occurred with: Patient Care Teams Information Resources Director Relationship Specialty Start Date End Date Velasquez Valencia MD PCP - General Family Medicine 09/09/22 documented as of this encounter
--- NOTE | 2025-01-06 18:13 | Emergency Department Note ---
Impression & Plan AF (paroxysmal atrial fibrillation), Chest pain, Heart palpitations, Hypoxia ED Provider Note NAME: ROBERT BARAJAS Jr AGE: 49 SEX: M : 1975 ARRIVES VIA: Walk-In INFORMANT: Patient, ED PROVIDER(S): George Enriquez DO CHIEF COMPLAINT: Chest pain HPI: The patient is a 49-year-old male who presented to the emergency department for an evaluation of chest pain. The patient describes anterior chest pain that radiates to the arms. He states has been ongoing intermittently over the last few months. He has been in our facility twice for this pain. He followed up with his family doctor. He is currently wearing a Holter monitor. The patient denies having any abdominal pain. He denies having any GI symptoms. ROS: See above HPI for pertinent positives & negatives. A total of 10 systems reviewed and were otherwise negative. PAST MEDICAL HISTORY: See Below PAST SURGICAL HISTORY: See Below FAMILY HISTORY: See Below SOCIAL HISTORY: See Below HOME MEDICATIONS: See Below ALLERGIES: See Below VITALS: See Below PHYSICAL EXAMINATION: GENERAL: Patient is awake alert in no acute distress patient is resting comfortably and showing no signs of anxiety EYES: The conjunctivae are clear. The pupils are round and reactive. EARS, NOSE, MOUTH AND THROAT: The nose is without any evidence of any deformity. NECK: The neck is nontender and supple. RESPIRATORY: Normal respiratory effort is noted there is no evidence of wheezing rhonchi or rales CARDIOVASCULAR: Regular rate and rhythm noted there no murmurs rubs or gallops normal S1 normal S2. GASTROINTESTINAL: The abdomen is soft. Abdomen is nontender. MUSCULOSKELETAL/EXTREMITIES: There is no evidence of gross deformity full range of motion is noted in the hips and shoulders. SKIN: There is no pedal edema in the right leg. 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 NEUROLOGIC: Patient is awake alert and oriented x3 MEDICAL DECISION MAKING: The is a 49-year-old male who presented to the emergency department for an evaluation of palpitations and chest pain. The patient's been seen in our facility for similar complaints over the course of the last several weeks. The patient was in sinus rhythm initially. He started having episodes of atrial fibrillation. This would be a new diagnosis for the patient. The patient's had episodes of hypoxia while in the emergency department. I discussed the patient's laboratory and radiographic studies with him. I discussed his condition with the on-call [facility] hospitalist. They have agreed to evaluate the patient in the emergency department for further management and disposition. Triage Nursing notes reviewed. Prior medical records reviewed Vital Signs: reviewed and remarkable for episodes of hypoxia. Differential diagnosis: Cardiac ischemia, aortic dissection, pulmonary embolism, pneumothorax, pneumonia, pericarditis, myocarditis, esophageal rupture, GERD, cholecystitis, pancreatitis, musculoskeletal, as well as other pathologies. ER treatment provided: See below Diagnostics interpreted by me: ECG: EKG was obtained in the emergency department. My interpretation is normal sinus rhythm at 94 bpm. There is no ectopy. There is no acute ST segment abnormalities noted. This was compared to a tracing from December 23, 2024. No changes were noted. Cardiac Monitoring: An order was placed for continuous cardiac monitoring. The monitor shows a rate of 90 bpm with sinus rhythm. Laboratory studies: As stated above and show below. Imaging studies: See below. Radiographic imaging was reviewed by myself Consultation(s): I discussed this case with Dr. Alamo who [facility] Past Med/Surg History Problem List (Updated 01/06/25 @ 19:46 by George Enriquez DO) Hypoxia (Acute) Heart palpitations (Acute) Chest pain (Acute) AF (paroxysmal atrial fibrillation) (Acute) CAD (coronary artery disease) Bronchitis HTN (hypertension) (Acute) Chest pain (Acute) Abnormal nuclear cardiac imaging test Dyslipidemia, goal LDL below 70 Acute hyperglycemia (Acute) Abnormal stress test (Acute) Precordial chest pain (Acute) HTN, goal below 130/80 Diarrhea (Acute) Chest pain (Acute) Generalized pain (Acute) Hyperglycemia due to type 2 diabetes mellitus (Acute) Chest pain (Acute) Chest pain Atypical chest pain Noncompliance with CPAP treatment Hypomagnesemia (Acute) Elevated lactic acid level (Acute) PASHA (acute kidney injury) (Acute) Abdominal pain (Acute) Acute and chronic respiratory failure with hypercapnia Shortness of breath (Acute) 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 Garcia Morbid obesity (Acute) Chronic respiratory failure with hypercapnia Diabetic peripheral neuropathy associated with type 2 diabetes mellitus Loss of protective sensation of skin of foot Epigastric abdominal pain Encounter for pre-operative examination Colon polyp Medical History Chronic diastolic heart failure Volume overload Arthritis Low magnesium level History of RSV infection & flu a few months ago. Tachycardia chronic high heart rate - unknown etiology - a few months ago increased dose of metoprolol. Rhinovirus dx May 23 [facility] & another illness dx - ? name of /antibiotic and inhalers for. feeling better: only symptom : sore throat. COPD (chronic obstructive pulmonary disease) ? dx of Peripheral neuropathy Diabetes mellitus, type 2 Hypertension Tobacco use Restrictive lung disease Elevated liver function tests History of DVT (deep vein thrombosis) "years ago">no known cause Tussive syncope "occurred only one time, no recent issues" Esophagitis Osteoarthritis Hx of pancreatitis resolved GERD (gastroesophageal reflux disease) Cardiac murmur A CHILD Erectile dysfunction MRSA (methicillin resistant Staphylococcus aureus) carrier over 2 yrs ago>"not sure where it was" Intellectual disability Obstructive sleep apnea cpap Obesity IBS (irritable bowel syndrome) History of ventricular tachycardia "nonsustained" Surgical History History of appendectomy 02/10/2023 History of reduction of nasal fracture 09/25/21-Dr. Garcia Status post incision and drainage LLE History of shoulder surgery right-2019 H/O foot surgery LEFT-2018 History of arthroscopy LEFT [id number] History of esophagogastroduodenoscopy (EGD) History of colonoscopy with most recent attempt: failed prep. Told would need a 2 day prep prior to colonoscopy in Sep 2023. History of tooth extraction History of tonsillectomy and adenoidectomy 1979 Family History Brother Family history of diabetes mellitus Environmental allergies Asthma Mother Family history of diabetes mellitus Hypertension Environmental allergies Father Family history of diabetes mellitus Hypertension Heart disease Grandfather (Paternal) Lung cancer smoker Aunt Bleeding disorder Other No family history of adverse response to anesthesia Social History Smoking Status: Current every day smoker Tobacco Type: Cigarettes Age Started Using Tobacco: 14; Cigarettes Per Day: 20; Second Hand Exposure: No; Do You Dip or Chew Tobacco: No; Hx Alcohol Use: Yes Alcohol type: beer Alcohol Intake Frequency: Monthly or Less Alcohol Intake Frequency Comment: seldom, a couple times per year if that per pt Hx Substance Use: No Preferred Language: Czech Communication Ability: Effective Industrial Maintenance Instructor Required: No Beliefs That Will Affect Care: None marital status: / marital status details: single at this time Current Living Situation: Family Current Living Situation Comment: Lives with family emergency department manager and his girlfriend emergency department manager per patient. 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 Cephalosporins Allergy Unknown Unknown Verified 11/14/24 12:17 empagliflozin AdvReac Unknown put me Verified 11/14/24 12:17 [From Jardiance] into ketoacidosis? NSAIDS (Non-Steroidal AdvReac Unknown use with Verified 11/14/24 12:17 Anti-Inflamma caution : hx esophagus damage Home Meds Home Medications Medication Instructions Recorded Confirmed dicyclomine 10 mg capsule 10 mg PO QID PRN Diarrhea 05/01/20 01/06/25 metoprolol succinate 100 mg 100 mg PO BID 09/30/24 01/06/25 tablet,extended release 24 hr haloperidol 1 mg tablet 1 mg PO QAM PRN gastroparesis 10/10/24 01/06/25 symptoms aspirin 81 mg tablet,delayed 81 mg PO QAM 12/21/24 01/06/25 release metformin 500 mg tablet,extended 500 mg PO QAM 12/21/24 01/06/25 release 24 hr spironolactone 25 mg tablet 50 mg PO DAILY 12/21/24 01/06/25 torsemide 20 mg tablet 20 mg PO QPM 12/21/24 01/06/25 Previous Rx's Medication Instructions Recorded atorvastatin 20 mg tablet 20 mg PO HS 30 days #30 tabs 09/17/24 famotidine 20 mg tablet 20 mg PO HS 30 days #30 tabs 09/17/24 losartan 50 mg tablet 50 mg PO BID 30 days #30 tabs 09/17/24 omeprazole 40 mg capsule,delayed 40 mg PO DAILYBB 30 days #30 caps 09/17/24 release terazosin 1 mg capsule 1 mg PO HS 30 days #30 caps 09/17/24 metoprolol succinate 25 mg 25 mg PO BID #60 tabs 10/12/24 tablet,extended release 24 hr amlodipine 5 mg tablet (Norvasc) 5 mg PO QAM #30 tabs 12/25/24 isosorbide mononitrate 30 mg 30 mg PO QAM #30 tabs 12/25/24 tablet,extended release 24 hr Results & Data (ED) Vital Signs Vital Signs - 24 hr 01/06/25 17:52 01/06/25 18:04 01/06/25 18:20 Temperature 36.6 C Temperature Source Temporal Artery Scan Pulse Rate 95 H 93 H Pulse Rate [Right Finger] 91 H Pulse Rhythm [Right Finger] Regular Pulse Strength [Right Finger] Normal Respiratory Rate 18 15 Respiratory Effort / Characteristics Non-Labored Spontaneous Non-Labored Respiratory Depth Normal Normal Respiratory Pattern Regular Regular Blood Pressure 153/73 H Blood Pressure [Right Arm] 153/79 H Blood Pressure Mean 99 Blood Pressure Mean [Right Arm] 103 Blood Pressure Position [Right Arm] Lying Pulse Oximetry 91 92 Oxygen Delivery Method Room Air Room Air Sepsis Recent Fever Within 48 Hours No Sepsis New/Unexplained Change in Mental Status N/A Sepsis Action Taken by Nursing No Action Required 01/06/25 18:20 Temperature Temperature Source Pulse Rate Pulse Rate [Right Finger] Pulse Rhythm [Right Finger] Pulse Strength [Right Finger] Respiratory Rate Respiratory Effort / Characteristics Respiratory Depth Respiratory Pattern Blood Pressure Blood Pressure [Right Arm] Blood Pressure Mean Blood Pressure Mean [Right Arm] Blood Pressure Position [Right Arm] Pulse Oximetry 90 Oxygen Delivery Method Room Air Sepsis Recent Fever Within 48 Hours Sepsis New/Unexplained Change in Mental Status Sepsis Action Taken by Prison Medications Current Medication List: was personally reviewed by me Laboratory Data Attestation: I reviewed the patient's lab results. 01/06/25 18:20 01/06/25 18:20 Lab Results 01/06/25 Range/Units 18:20 WBC 7.52 (4.8-10.8) K/ul RBC 4.71 (4.70-6.10) M/uL Hgb 12.2 L (14.0-18.0) g/dl Hct 39.1 L (42.0-52.0) % MCV 83.0 (80.0-100.0) fL MCH 25.9 (25.0-34.0) pg MCHC 31.2 L (32.0-36.0) g/dL RDW Std Deviation 44.7 (36.4-46.3) fL RDW Coeff of Abiodun 14.8 H (11.5-14.5) % Plt Count 260 (130-400) K/uL MPV 9.5 (9.4-12.4) fL Immature Gran % (Auto) 2.5 % Neut % (Auto) 61.1 % Lymph % (Auto) 21.7 % Sanborn % (Auto) 9.3 % Eos % (Auto) 4.5 % Baso % (Auto) 0.9 % Neut # (Auto) 4.59 (1.40-6.50) K/uL Lymph # (Auto) 1.63 (1.20-3.40) K/uL Sanborn # (Auto) 0.70 H (0.11-0.59) K/uL Eos # (Auto) 0.34 (0.00-0.50) K/uL Baso # (Auto) 0.07 (0.00-0.20) K/uL Immature Gran # (Auto) 0.19 (0.01-0.20) K/uL PT 10.6 (9.0-12.0) Seconds INR 1.0 (0.9-1.1) APTT 27 (21-31) Seconds PTT Ratio 1.0 Sodium 140 (136-145) mmol/L Potassium 4.4 (3.5-5.1) mmol/L Chloride 101 (98-107) mmol/L Carbon Dioxide 35 H (21-32) mmol/L Anion Gap 4 (3-11) BUN 34 H (6-23) mg/dl Creatinine 1.10 (0.6-1.4) mg/dl Est Cr Clr Drug Dosing 131.8 ml/min eGFR 81.28 BUN/Creatinine Ratio 30.9 H (10-20) Glucose 209 H (70-99(Fasting)) mg/dl Calcium 9.4 (8.6-10.3) mg/dl Total Bilirubin 0.3 (0.2-1.0) mg/dl AST 22 (13-39) U/L ALT 19 (7-52) U/L Alkaline Phosphatase 73 (34-104) U/L Troponin I High Sens 11.1 (0-20) pg/ml Total Protein 7.2 (6.0-8.3) gm/dl Albumin 4.0 (3.4-5.0) gm/dl Globulin 3.2 (2.5-4.0) gm/dl Albumin/Globulin Ratio 1.3 (0.9-2) Lipase 30 (11-82) U/L Imaging Data Attestation: I personally reviewed and interpreted this imaging study as follows: My Impression: 1 view chest x-ray was obtained in the emergency department. My interpretation is cardiomegaly, final report below. Radiologist's Impression: Chest X-Ray 01/06/25 18:01 EXAM: XR chest 1V portable CLINICAL HISTORY: Chest pain, nonspecific. TECHNIQUE: X-ray images of the chest were obtained in posteroanterior (PA) projections. COMPARISON: CR dated 09/30/2024. FINDINGS: Pulmonary Parenchyma: Unchanged bilateral prominent pulmonary vascular markings with bilateral prominent hilar vascular shadows. No evidence of pleural effusion or pleural thickening. Heart and Mediastinum: Heart size and shape are normal. No mediastinal widening or masses. No hilar or mediastinal lymphadenopathy. Bony Thorax: Bony thorax appears intact without fractures or deformities. Soft Tissues: Soft tissues overlying the chest wall are unremarkable. IMPRESSION: 1. Prominent bilateral pulmonary vascular markings and hilar vascular shadows. Please correlate clinically as to congestion. 2. No significant interval change Electronically signed by Kevin Tucker 01-06-2025 7:14 PM Discharge Plan Visit Data Chief Complaint: Chest Pain Stated Complaint: CHEST PAIN,L SIDE OF BODY PAIN, ED Provider: George Enriquez Discharge Problem: AF (paroxysmal atrial fibrillation), Chest pain, Heart palpitations, Hypoxia Patient Disposition: Being Evaluated by Hospitalist Forms Stand Alone Forms: My [facility] Prescriptions Prescriptions: No Action dicyclomine 10 mg capsule 10 mg PO QID PRN (Reason: Diarrhea) haloperidol 1 mg tablet 1 mg PO QAM PRN (Reason: gastroparesis symptoms) metoprolol succinate 25 mg tablet extended release 24 hr 25 mg PO BID Qty: 60 0RF aspirin 81 mg tablet,delayed release (DR/EC) 81 mg PO QAM metformin 500 mg tablet extended release 24 hr 500 mg PO QAM torsemide 20 mg tablet 20 mg PO QPM spironolactone 25 mg tablet 50 mg PO DAILY Hold Instructions: Until follow-up with your primary care physician for further instructions isosorbide mononitrate 30 mg Tablet Extended Release 24 Hr 30 mg PO QAM Qty: 30 0RF amlodipine [Norvasc] 5 mg Tablet 5 mg PO QAM Qty: 30 0RF losartan 50 mg tablet 50 mg PO BID 30 Days Qty: 30 1RF atorvastatin 20 mg tablet 20 mg PO HS 30 Days Qty: 30 1RF terazosin 1 mg capsule 1 mg PO HS 30 Days Qty: 30 1RF omeprazole 40 mg capsule,delayed release(DR/EC) 40 mg PO DAILYBB 30 Days Qty: 30 1RF famotidine 20 mg tablet 20 mg PO HS 30 Days Qty: 30 1RF metoprolol succinate 100 mg tablet extended release 24 hr 100 mg PO BID Referrals Referrals: Velasquez Valencia MD [Primary Care Provider] -
[2025-01-06 18:38] LABS: Basophils # (auto) 0.07 K/uL (0.00-0.20); Basophils % (auto) 0.9 %; Eosinophils # (auto) 0.34 K/uL (0.00-0.50); Eosinophils % (auto) 4.5 %; Hematocrit (blood only) 39.1 % (42.0-52.0); Hemoglobin 12.2 g/dl (14.0-18.0); Immature Granulocytes # (auto) 0.19 K/uL (0.01-0.20); Immature Granulocytes % (auto) 2.5 %; Lymphocytes # (auto) 1.63 K/uL (1.20-3.40); Lymphocytes % (auto) 21.7 %; Mean Corpuscular Hemoglobin 25.9 pg (25.0-34.0); Mean Corpuscular Hgb Conc 31.2 g/dL (32.0-36.0); Mean Platelet Volume 9.5 fL (9.4-12.4); Monocytes % (auto) 9.3 %; Neutrophils # (auto) 4.59 K/uL (1.40-6.50); Neutrophils % (auto) 61.1 %; Platelet Count 260 K/uL (130-400); RDW Coefficient of Variation 14.8 % (11.5-14.5); RDW Standard Deviation 44.7 fL (36.4-46.3); Red Blood Count 4.71 M/uL (4.70-6.10); White Blood Count 7.52 K/ul (4.8-10.8)
[2025-01-06 18:47] LABS: Albumin Globulin Ratio 1.3 (0.9-2); BUN Creatinine Ratio 30.9 (10-20); Bilirubin,Total 0.3 mg/dl (0.2-1.0); Calcium 9.4 mg/dl (8.6-10.3); Creatinine Clr Calc Pharmacy 131.8 ml/min; Globulin 3.2 gm/dl (2.5-4.0); Potassium 4.4 mmol/L (3.5-5.1); Total Protein 7.2 gm/dl (6.0-8.3)
[2025-01-06 18:54] LABS: Troponin I High Sensitivity 11.1 pg/ml (0-20)
[2025-01-06 19:02] LABS: Partial Thromboplastin Time 27 Seconds (21-31); Prothrombin Time 10.6 Seconds (9.0-12.0)
--- NOTE | 2025-01-06 19:15 | XRay Report ---
EXAM: XR chest 1V portable CLINICAL HISTORY: Chest pain, nonspecific. TECHNIQUE: X-ray images of the chest were obtained in posteroanterior (PA) projections. COMPARISON: CR dated 09/30/2024. FINDINGS: Pulmonary Parenchyma: Unchanged bilateral prominent pulmonary vascular markings with bilateral prominent hilar vascular shadows. No evidence of pleural effusion or pleural thickening. Heart and Mediastinum: Heart size and shape are normal. No mediastinal widening or masses. No hilar or mediastinal lymphadenopathy. Bony Thorax: Bony thorax appears intact without fractures or deformities. Soft Tissues: Soft tissues overlying the chest wall are unremarkable. IMPRESSION: 1. Prominent bilateral pulmonary vascular markings and hilar vascular shadows. Please correlate clinically as to congestion. 2. No significant interval change Electronically signed by Kevin Tucker 01-06-2025 7:14 PM
[2025-01-06 19:55] LABS: Base Excess VBG 4.3 mEq/L; HCO3 VBG 32 mmol/L; Oxygen Saturation VBG 96.5 %; PCO2 VBG 59 mmHg (38-50); PO2 VBG 86 mmHg; pH VBG 7.34 (7.36-7.41)
--- NOTE | 2025-01-06 20:29 | History & Physical Report ---
Date of Service January 06, 2025 Assessment & Plan (1) Heart palpitations: (2) Edema of left lower leg: Plan Mr. Akhtar is 49 year old medical history significant for chronic diastolic heart failure (EF 55 to 60%, TTE 2024), CAD, hypertension, hyperlipidemia, COPD/RLD, DAMION (current CPAP noncompliance), PE/DVT status post anticoagulation, DM2 on insulin pump, NAFLD, GERD, gastroparesis, history of pancreatitis, chronic anemia (baseline hemoglobin 11-12), morbid obesity, intellectual disability as per records, ongoing tobacco abuse admitted on obs given reports of atrial fibrillation on monitor briefly in ED as well as question of LLE swelling around stump. Less likely related to cellulitis, however, would be concerned for DVT as risk factors are present. #Palpitations reports of a fib on monitor per ED, however, on my review could not locate episodes holter monitor in place to be returned Wednesday Given question of a fib and the LLE swelling, will add therapeutic Lovenox in interim while ddimer, duplex, and tele monitoring result If a fib noted, doac not ideal 2/2 habitus Requesting Cards discussion, will consult for closer review of telemetry and reassurance for patient given anxiety #Chronic Peripheral edema #LLE stump pain and swelling ECHO 12/2024 reviewed On torsemide daily Reports on spironolactone at home, however issue with hyperkalemia noted and patient seemingly poor historian with meds -Will resume at 25mg daily LLE duplex ordered #Hypertension #ASCVD continue asa, statin, Metoprolol, Imdur, losartan and amlodipine heart healthy diet, DMII and 2L FR #Uncontrolled DMTII A1C 10.2% 12/2024 glycemic pharmacy #DAMION continue nocturnal o2 DVt lovenox admit obs Admission and Anticipated Discharge Date Admission Date: Time spent evaluating patient, direct bedside care, chart review, placing orders, interpretation of diagnostic studies, discussion with consultants, patient, and family members, as well as other required patient management activities is 75minutes. History of Present Illness Primary Care Provider: Velasquez Valencia MD Mr. Akhtar is 49 year old medical history significant for chronic diastolic heart failure (EF 55 to 60%, TTE 2023), CAD, hypertension, hyperlipidemia, COPD/RLD, DAMION (current CPAP noncompliance), PE/DVT status post anticoagulation, DM2 on insulin pump, NAFLD, GERD, gastroparesis, history of pancreatitis, chronic anemia (baseline hemoglobin 11-12), morbid obesity, intellectual disability as per records, ongoing tobacco abuse presented to [facility] ED due to palpitations and LLE stump pain. Patient states since discharge he still feels his heart is racing. He also notes that he has LLE stump pain and swelling that has been worsening over the course of 2 weeks. He denies any other acute concerns. He states he is "sure [he] takes all of his medications." ED provider reports short episodes of paroxysmal atrial fibrillation "multiple times" on monitor in ED. Could not confirm. In the ED, vitals were notable for BP of 120-150s, HR of 80-90s and O2 sat of high 90s on oxymask while sleeping. Imaging revealed prominent pulmonary vascular markings ED interventions: none. Patient to be admitted to med/tele for further evaluation and management of palpitations c/f a fib and LLE pain Allergies Allergy/AdvReac Type Severity Reaction Status Date / Time cefaclor [From Ceclor] Allergy Unknown childhood Verified 11/14/24 12:17 allergy ? Cephalosporins Allergy Unknown Unknown Verified 11/14/24 12:17 empagliflozin AdvReac Unknown put me Verified 11/14/24 12:17 [From Jardiance] into ketoacidosis? NSAIDS (Non-Steroidal AdvReac Unknown use with Verified 11/14/24 12:17 Anti-Inflamma caution : hx esophagus damage Home Medications Medication Instructions Recorded Confirmed Type dicyclomine 10 mg capsule 10 mg PO QID PRN Diarrhea 05/01/20 01/06/25 History atorvastatin 20 mg tablet 20 mg PO HS 30 days #30 tabs 09/17/24 01/06/25 Rx famotidine 20 mg tablet 20 mg PO HS 30 days #30 tabs 09/17/24 01/06/25 Rx losartan 50 mg tablet 50 mg PO BID 30 days #30 tabs 09/17/24 01/06/25 Rx omeprazole 40 mg capsule,delayed 40 mg PO DAILYBB 30 days #30 caps 09/17/24 01/06/25 Rx release terazosin 1 mg capsule 1 mg PO HS 30 days #30 caps 09/17/24 01/06/25 Rx metoprolol succinate 100 mg 100 mg PO BID 09/30/24 01/06/25 History tablet,extended release 24 hr haloperidol 1 mg tablet 1 mg PO QAM PRN gastroparesis 10/10/24 01/06/25 History symptoms metoprolol succinate 25 mg 25 mg PO BID #60 tabs 10/12/24 01/06/25 Rx tablet,extended release 24 hr aspirin 81 mg tablet,delayed 81 mg PO QAM 12/21/24 01/06/25 History release metformin 500 mg tablet,extended 500 mg PO QAM 12/21/24 01/06/25 History release 24 hr spironolactone 25 mg tablet 50 mg PO DAILY 12/21/24 01/06/25 History torsemide 20 mg tablet 20 mg PO QPM 12/21/24 01/06/25 History amlodipine 5 mg tablet (Norvasc) 5 mg PO QAM #30 tabs 12/25/24 01/06/25 Rx isosorbide mononitrate 30 mg 30 mg PO QAM #30 tabs 12/25/24 01/06/25 Rx tablet,extended release 24 hr Past Med/Surg History Problem List (Updated 01/06/25 @ 20:46 by Margaret Alamo MD) Edema of left lower leg Hypoxia (Acute) Heart palpitations (Acute) Chest pain (Acute) AF (paroxysmal atrial fibrillation) (Acute) CAD (coronary artery disease) Bronchitis HTN (hypertension) (Acute) Chest pain (Acute) Abnormal nuclear cardiac imaging test Dyslipidemia, goal LDL below 70 Acute hyperglycemia (Acute) Abnormal stress test (Acute) Precordial chest pain (Acute) HTN, goal below 130/80 Diarrhea (Acute) Chest pain (Acute) Generalized pain (Acute) Hyperglycemia due to type 2 diabetes mellitus (Acute) Chest pain (Acute) Chest pain Atypical chest pain Noncompliance with CPAP treatment Hypomagnesemia (Acute) Elevated lactic acid level (Acute) PASHA (acute kidney injury) (Acute) Abdominal pain (Acute) Acute and chronic respiratory failure with hypercapnia Shortness of breath (Acute) 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 Garcia Morbid obesity (Acute) Chronic respiratory failure with hypercapnia Diabetic peripheral neuropathy associated with type 2 diabetes mellitus Loss of protective sensation of skin of foot Epigastric abdominal pain Encounter for pre-operative examination Colon polyp Medical History Chronic diastolic heart failure Volume overload Arthritis Low magnesium level History of RSV infection & flu a few months ago. Tachycardia chronic high heart rate - unknown etiology - a few months ago increased dose of metoprolol. Rhinovirus dx May 23 [facility] & another illness dx - ? name of /antibiotic and inhalers for. feeling better: only symptom : sore throat. COPD (chronic obstructive pulmonary disease) ? dx of Peripheral neuropathy Diabetes mellitus, type 2 Hypertension Tobacco use Restrictive lung disease Elevated liver function tests History of DVT (deep vein thrombosis) "years ago">no known cause Tussive syncope "occurred only one time, no recent issues" Esophagitis Osteoarthritis Hx of pancreatitis resolved GERD (gastroesophageal reflux disease) Cardiac murmur A CHILD Erectile dysfunction MRSA (methicillin resistant Staphylococcus aureus) carrier over 2 yrs ago>"not sure where it was" Intellectual disability Obstructive sleep apnea cpap Obesity IBS (irritable bowel syndrome) History of ventricular tachycardia "nonsustained" Surgical History History of appendectomy 02/10/2023 History of reduction of nasal fracture 09/25/21-Dr. Garcia Status post incision and drainage LLE History of shoulder surgery right-2019 H/O foot surgery LEFT-2018 History of arthroscopy LEFT KNEE-1987 History of esophagogastroduodenoscopy (EGD) History of colonoscopy with most recent attempt: failed prep. Told would need a 2 day prep prior to colonoscopy in Sep 2023. History of tooth extraction History of tonsillectomy and adenoidectomy 1979 Family History Brother Family history of diabetes mellitus Environmental allergies Asthma Mother Family history of diabetes mellitus Hypertension Environmental allergies Father Family history of diabetes mellitus Hypertension Heart disease Grandfather (Paternal) Lung cancer smoker Aunt Bleeding disorder Other No family history of adverse response to anesthesia Social History Smoking Status: Current every day smoker Tobacco Type: Cigarettes Age Started Using Tobacco: 14; Cigarettes Per Day: 20; Second Hand Exposure: No; Do You Dip or Chew Tobacco: No; Hx Alcohol Use: Yes Alcohol type: beer Alcohol Intake Frequency: Monthly or Less Alcohol Intake Frequency Comment: seldom, a couple times per year if that per pt Hx Substance Use: No Preferred Language: Citizen Of [place] Communication Ability: Effective Service Supervisor Required: No Beliefs That Will Affect Care: None marital status: / marital status details: single at this time Current Living Situation: Family Current Living Situation Comment: Lives with family supervisor inspection department and his girlfriend supervisor inspection department per patient. 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 Head: (-) headache, (-) dizziness. Eye: (-) blurring of vision, (-) double vision, (-) redness. Ear: (-) hearing loss, (-) discharge, (-) vertigo Nose: (-) discharge, (-) bleeding, (-) congestion, (-) post nasal drip. Throat: (-) sore throat, (-) hoarseness of voice, (-) odynophagia. Cardiovascular: (+) chest pain, (+) palpitations, (-) syncope, (-) orthopnea, (- ) PND, (+) leg swelling. Respiratory: (-) shortness of breath, (-) cough, (-) wheezing, (-) hemoptysis. Neuro: (-) weakness in extremities, (-) numbness, (-) tingling, (-) tremor. Gastrointestinal: (-) belly pain, (-) belly distension, (-) nausea, (-) vomiting, (-) diarrhea, (-) constipation, (-) hematemesis, (-) hematochezia, (- ) bowel incontinence Genitourinary: (-) hematuria, (-) dysuria, (-) polyuria, (-) hesitancy, (-) frequency, (-) urinary incontinence. Musculoskeletal: (-) myalgia, (-) arthralgia. Skin: (-) rashes. Endocrine: (-) heat/cold intolerance. Psychiatry: (-) depression, (-) hallucination. Physical Exam Physical Exam: GENERAL APPEARANCE: AxOx4, morbidly obese gentleman, no acute distress HEENT: NC, AT. MMM. EOMI, clear conjunctiva, oropharynx clear. NECK: Supple without lymphadenopathy. No stiffness or restricted ROM. HEART: Normal rate and regular rhythm, normal S1/S1, no m/r/g LUNGS: difficult 2/2 habitus ABDOMEN: Soft, nontender, nondistended with good bowel sounds heard. BACK: No CVAT, no obvious deformity. EXTREMITIES: RLE without edema, LLE stump with left sided edema and slight erythema noted on medial aspect NEUROLOGICAL: Grossly nonfocal. Alert and oriented, moving all 4 extremities. CN not formally tested but appear grossly intact. Skin: Warm and dry without any rash. Results & Data Results & Data Vital Signs (Past 12 Hours) Vital Signs Temp Pulse Pulse Resp BP BP Pulse Ox 01/06/25 20:14 88 18 123/60 99 01/06/25 18:20 90 01/06/25 18:20 91 H 15 153/79 H 92 01/06/25 18:04 93 H 01/06/25 17:52 36.6 C 95 H 18 153/73 H 91 O2 Del Method O2 Flow Rate 01/06/25 20:14 Oxymask 5 01/06/25 18:20 Room Air 01/06/25 18:20 Room Air 01/06/25 18:04 01/06/25 17:52 Room Air Laboratory Results Short CBC 01/06/25 Range/Units 18:20 WBC 7.52 (4.8-10.8) K/ul Hgb 12.2 L (14.0-18.0) g/dl Hct 39.1 L (42.0-52.0) % Plt Count 260 (130-400) K/uL BMP 01/06/25 18:20 Sodium 140 Potassium 4.4 Chloride 101 Carbon Dioxide 35 H BUN 34 H Creatinine 1.10 Glucose 209 H Calcium 9.4 Liver Function 01/06/25 Range/Units 18:20 Total Bilirubin 0.3 (0.2-1.0) mg/dl AST 22 (13-39) U/L ALT 19 (7-52) U/L Alkaline Phosphatase 73 (34-104) U/L Albumin 4.0 (3.4-5.0) gm/dl Medications Administered Home Medications Medication Instructions Recorded Confirmed Last Taken dicyclomine 10 mg capsule 10 mg PO QID PRN Diarrhea 05/01/20 01/06/25 09/15/24 atorvastatin 20 mg tablet 20 mg PO HS 30 days #30 tabs 09/17/24 01/06/25 01/05/25 famotidine 20 mg tablet 20 mg PO HS 30 days #30 tabs 09/17/24 01/06/25 01/05/25 losartan 50 mg tablet 50 mg PO BID 30 days #30 tabs 09/17/24 01/06/25 01/06/25 omeprazole 40 mg capsule,delayed 40 mg PO DAILYBB 30 days #30 caps 09/17/24 01/06/25 01/06/25 release terazosin 1 mg capsule 1 mg PO HS 30 days #30 caps 09/17/24 01/06/25 01/05/25 metoprolol succinate 100 mg 100 mg PO BID 09/30/24 01/06/25 01/06/25 tablet,extended release 24 hr haloperidol 1 mg tablet 1 mg PO QAM PRN gastroparesis 10/10/24 01/06/25 Unknown symptoms metoprolol succinate 25 mg 25 mg PO BID #60 tabs 10/12/24 01/06/25 01/06/25 tablet,extended release 24 hr aspirin 81 mg tablet,delayed 81 mg PO QAM 12/21/24 01/06/25 01/06/25 release metformin 500 mg tablet,extended 500 mg PO QAM 12/21/24 01/06/25 01/06/25 release 24 hr spironolactone 25 mg tablet 50 mg PO DAILY 12/21/24 01/06/25 01/06/25 torsemide 20 mg tablet 20 mg PO QPM 12/21/24 01/06/25 01/05/25 amlodipine 5 mg tablet (Norvasc) 5 mg PO QAM #30 tabs 03/10/25 03/22/25 03/22/25 isosorbide mononitrate 30 mg 30 mg PO [facility] #30 tabs 12/25/24 01/06/25 01/06/25 tablet,extended release 24 hr
[2025-01-06 20:34] LABS: Magnesium 1.6 mg/dl (1.7-2.4)
[2025-01-06 20:50] LABS: Thyroid Stimulating Hormone 1.329 uIu/ml (0.300-4.500)
[2025-01-06] MEDS ORDERED: APIXABAN 5 MG TABLET PO SCH (21:00)
[2025-01-06 21:16] LABS: D Dimer 320 ug/L FEU (0-500)
[2025-01-06] MEDS ORDERED: Heparin IV Adult Wt-Based Standard w/ INITIAL Bolus Protocol IV STA (21:31)
[2025-01-06] MEDS: ENOXAPARIN 1 MG/KG SQ SCH (21:47)
[2025-01-06] MEDS ORDERED: GLUCOSE 10 TAB/TUBE PO PRN (21:51)
[2025-01-06] MEDS ORDERED: CARBOHYDRATES FOR HYPOGLYCEMIA PO PRN (21:51)
[2025-01-06] MEDS ORDERED: GLUCOSE 40% GEL 15 GM TUBE PO PRN (21:51)
[2025-01-06] MEDS ORDERED: DEXTROSE 50% 50 ML SYRINGE IV PRN (21:51)
[2025-01-06] MEDS ORDERED: DICYCLOMINE HCL 10 MG CAP PO PRN (21:51)
[2025-01-06] MEDS ORDERED: GLUCAGON FOR INJ 1 MG VIAL SQ PRN (21:51)
[2025-01-06] MEDS ORDERED: PHARMACY GLYCEMIC MGMT CONSULT PRN (21:51)
[2025-01-06] MEDS: HEPARIN SOD (PORCINE) 1000 UNIT/ML IV ONE (22:05)
[2025-01-06] MEDS: HEPARIN 25000 UNIT/500 ML D5W 25,000 UNITS/500 ML BAG IV SCH (22:05)
[2025-01-06] MEDS: INSULIN ASPART PER UNIT CHARGE SC SCH (22:28)
[2025-01-06] MEDS: LANTUS PER UNIT CHARGE SQ SCH (22:34)
[2025-01-06] MEDS: METOPROLOL SUCC 25MG EXT REL TAB PO SCH (23:54)
[2025-01-06] MEDS: METOPROLOL SUCC 50MG EXT REL TAB PO SCH (23:54)
[2025-01-07] MEDS: ATORVASTATIN 20 MG TAB PO SCH (00:03)
[2025-01-07] MEDS: TERAZOSIN HCL 1 MG CAP PO SCH (00:03)
[2025-01-07] MEDS: TORSEMIDE 20 MG TAB PO SCH (00:03)
[2025-01-07] MEDS: LOSARTAN POTASSIUM 50 MG TAB PO SCH (00:03)
[2025-01-07] MEDS: FAMOTIDINE 20 MG TAB PO SCH (00:03)
--- NOTE | 2025-01-07 01:36 | Ultrasound Report ---
Exam(s): US VENOUS LEFT LOWER EXTREMITY EXAM: US Duplex Left Lower Extremity Veins CLINICAL HISTORY: LLE edema and pain. TECHNIQUE: Real-time duplex ultrasound scan of the left lower extremity veins integrating B-mode two-dimensional vascular structure, Doppler spectral analysis, color flow Doppler imaging and compression. COMPARISON: No relevant prior studies available. FINDINGS: Deep veins: Unremarkable. No DVT in the visualized common femoral, femoral, proximal deep femoral or popliteal veins. The veins demonstrate normal color flow, are normally compressible, with normal phasic flow and/or augmentation response. The patient has a BKA. Superficial veins: Unremarkable. No thrombus in the saphenofemoral junction. Soft tissues: Subcutaneous edema noted distally. No loculated fluid collection. No popliteal cyst. IMPRESSION: 1. No evidence for deep vein thrombosis involving the left lower extremity. 2. Subcutaneous edema noted distally. Electronically signed by: Elmer Jose MD 01/07/25 01:36 AM
[2025-01-07] MEDS: FUROSEMIDE 40 MG/4 ML VIAL IV ONE (04:02)
[2025-01-07 04:39] LABS: Basophils # (auto) 0.05 K/uL (0.00-0.20); Basophils % (auto) 0.7 %; Eosinophils # (auto) 0.32 K/uL (0.00-0.50); Eosinophils % (auto) 4.3 %; Hematocrit (blood only) 38.2 % (42.0-52.0); Hemoglobin 11.8 g/dl (14.0-18.0); Immature Granulocytes # (auto) 0.13 K/uL (0.01-0.20); Immature Granulocytes % (auto) 1.7 %; Lymphocytes # (auto) 1.66 K/uL (1.20-3.40); Lymphocytes % (auto) 22.1 %; Mean Corpuscular Hemoglobin 26.2 pg (25.0-34.0); Mean Corpuscular Hgb Conc 30.9 g/dL (32.0-36.0); Mean Corpuscular Volume 84.9 fL (80.0-100.0); Mean Platelet Volume 9.9 fL (9.4-12.4); Monocytes % (auto) 9.3 %; Neutrophils # (auto) 4.66 K/uL (1.40-6.50); Neutrophils % (auto) 61.9 %; Platelet Count 259 K/uL (130-400); RDW Coefficient of Variation 15.1 % (11.5-14.5); RDW Standard Deviation 46.2 fL (36.4-46.3); White Blood Count 7.52 K/ul (4.8-10.8)
[2025-01-07 04:47] LABS: BUN Creatinine Ratio 25.2 (10-20); Calcium 8.8 mg/dl (8.6-10.3); Creatinine Clr Calc Pharmacy 88.9 ml/min; Potassium 4.7 mmol/L (3.5-5.1)
[2025-01-07 05:07] LABS: ANTI-Xa, UFH(UnfractionatedHep 0.54 IU/ml (0.3-0.7)
[2025-01-07] MEDS: ASPIRIN 81 MG ECTAB PO SCH (08:21)
[2025-01-07] MEDS: SPIRONOLACTONE 25 MG TAB PO SCH (08:21)
[2025-01-07] MEDS: amLODIPine BESYLATE 5 MG TAB PO SCH (08:21)
[2025-01-07] MEDS: PANTOprazole 40 MG TAB PO SCH (08:21)
[2025-01-07] MEDS: ISOSORBIDE MONO EXTENDED REL 30 MG TABCR PO SCH (08:23)
[2025-01-07] MEDS: ACETAMINOPHEN 325 MG TAB PO SCH (11:29)
[2025-01-07] MEDS: DICLOFENAC SOD 1% GEL 100 GM TUBE EXT SCH (11:30)
--- NOTE | 2025-01-07 12:28 | Electrocardiogram Report ---
Test Reason : Blood Pressure : */* mmHG Vent. Rate : 94 BPM Atrial Rate : 94 BPM P-R Int : 144 ms QRS Dur : 100 ms QT Int : 358 ms P-R-T Axes : 26 -7 56 degrees QTcB Int : 447 ms Normal sinus rhythm Incomplete right bundle branch block Poor R wave progression, consider anterior NC vs. lead placement vs. LVH Abnormal ECG When compared with ECG of 23-Dec-2024 11:02, Incomplete right bundle branch block is now Present PRWP now present Confirmed by Nicko Draper ([id number]) on 01/07/2025 12:27:53 PM Referred By: REFERRED SELF Confirmed By: Nicko Draper
--- NOTE | 2025-01-07 12:35 | Electrocardiogram Report ---
Test Reason : Blood Pressure : */* mmHG Vent. Rate : 93 BPM Atrial Rate : 93 BPM P-R Int : 138 ms QRS Dur : 96 ms QT Int : 378 ms P-R-T Axes : 28 2 59 degrees QTcB Int : 469 ms Normal sinus rhythm Incomplete right bundle branch block Poor R wave progression, consider anterior RI vs. lead placement vs. LVH Abnormal ECG When compared with ECG of 06-Jan-2025 17:58, No significant change was found Confirmed by Nicko Draper ([id number]) on 01/07/2025 12:35:14 PM Referred By: REFERRED SELF Confirmed By: Nicko Draper
--- NOTE | 2025-01-07 13:21 | Pharmacy Report ---
Pharmacy Glycemic Short Note 2 - Date of Service January 07, 2025 - Glycemic Short BSG Results (Last 24 hours): 01/06/25 01/06/25 01/07/25 18:20 22:26 04:12 Glucose 209 H 158 H POC Glucose 149 H 01/07/25 01/07/25 07:18 11:35 Glucose POC Glucose 152 H 187 H OUTPATIENT ANTIDIABETIC REGIMEN: * Omnipod Novolog pump * 2.8 units/hr, ICR: 3, ISF: 9 (per Epic records) * Metformin 1 g PO BIDM HbA1c: 10.9% (12/23/24) ASSESSMENT: * LS is a 49 year old male who presented to ED for evaluation of chest pain/heart palpitations * Heparin gtt (mixed in dextrose) initiated in ED for reports of afib on monitor - cardiology consulted * Patient managed w/ insulin pump as an outpatient, but utilizing SC basal/bolus while inpatient * Will utilize initial regimen that resembles outpatient pump settings PLAN FOR INPATIENT GLYCEMIC CONTROL: * Hold outpatient oral diabetes medications * Basal insulin * Lantus 35-45 units SQ BID * Bolus insulin * NovoLog per scale ACHS or Q6hrs while NPO * Goal Range: Low 110 mg/dL - High 140 mg/dL * Correction Factor: 10 mg/dL/unit * Nutritional / Prandial insulin per carb ratio of 1 unit per 4 grams CHO consumed
--- NOTE | 2025-01-07 14:25 | Cardiology Consultation ---
Date of Consultation January 07, 2025 Assessment & Plan (1) Chest pain: (2) HTN (hypertension): (3) Heart palpitations: (4) Dyslipidemia, goal LDL below 70: (5) Sleep apnea: Plan -HR and BP well controlled -He appears euvolemic on exam -Telemetry reviewed with no evidence of atrial dysrhythmia -Zio monitor remains in place, due to be sent back tomorrow may shed more light on symptoms in regard to any underlying arrhythmias -Continue amlodipine, aspirin, atorvastatin, losartan, metoprolol, Aldactone and torsemide -Given the ongoing chest discomfort recommend up titration of isosorbide to 60 mg daily -at this point there is no evidence for review on my chart review of atrial fibrillation so no current role for anticoagulation -may benefit from optimization of DAMION treatment but unable to tolerate CPAP, would follow up with sleep medicine outpatient Case discussed with SHY Timmons [facility] Cardiology Supervising Physician Co-Signing Physician Notes I have seen and examined the patient above and agree with the assessment and plan above as noted by SHY Smith. Peter Rahman MD I provided 80 min of care to the patient in regards to management of possible AFib. History of Present Illness Reason for Consultation: Chest Pain, Concern for A Fib Requesting Physician: Hospitalist Attending Physician: Ashley Reese MD History of Present Illness 49-year-old male seen in consultation today in regard to concern of atrial fibrillation and chest discomfort. Known Hx of chronic diastolic heart failure (EF 55 to 60%, TTE 2024), CAD, hypertension, hyperlipidemia, COPD/RLD, DAMION (current CPAP noncompliance), PE/DVT status post anticoagulation, DM2 on insulin pump, NAFLD, GERD, gastroparesis, history of pancreatitis, chronic anemia (baseline hemoglobin 11-12), morbid obesity, intellectual disability as per records, ongoing tobacco abuse. Reportedly has had chest pain ongoing for the last several months which is unchanged. Feels his heart " pulsating" in his chest frequently. Reports his daily weights at home have been relatively stable. Allergies Allergy/AdvReac Type Severity Reaction Status Date / Time cefaclor [From Ceclor] Allergy Unknown childhood Verified 11/14/24 12:17 allergy ? Cephalosporins Allergy Unknown Unknown Verified 11/14/24 12:17 [email or web address] AdvReac Unknown put me Verified 11/14/24 12:17 [From Jardiance] into ketoacidosis? NSAIDS (Non-Steroidal AdvReac Unknown use with Verified 11/14/24 12:17 Anti-Inflamma caution : hx esophagus damage Home Medications Medication Instructions Recorded Confirmed Type dicyclomine 10 mg capsule 10 mg PO QID PRN Diarrhea 05/01/20 01/06/25 History atorvastatin 20 mg tablet 20 mg PO HS 30 days #30 tabs 09/17/24 01/06/25 Rx famotidine 20 mg tablet 20 mg PO HS 30 days #30 tabs 09/17/24 01/06/25 Rx losartan 50 mg tablet 50 mg PO BID 30 days #30 tabs 09/17/24 01/06/25 Rx omeprazole 40 mg capsule,delayed 40 mg PO DAILYBB 30 days #30 caps 09/17/24 01/06/25 Rx release terazosin 1 mg capsule 1 mg PO HS 30 days #30 caps 09/17/24 01/06/25 Rx metoprolol succinate 100 mg 100 mg PO BID 09/30/24 01/06/25 History tablet,extended release 24 hr haloperidol 1 mg tablet 1 mg PO QAM PRN gastroparesis 10/10/24 01/06/25 History symptoms metoprolol succinate 25 mg 25 mg PO BID #60 tabs 10/12/24 01/06/25 Rx tablet,extended release 24 hr aspirin 81 mg tablet,delayed 81 mg PO QAM 12/21/24 01/06/25 History release metformin 500 mg tablet,extended 500 mg PO QAM 12/21/24 01/06/25 History release 24 hr spironolactone 25 mg tablet 50 mg PO DAILY 12/21/24 01/06/25 History torsemide 20 mg tablet 20 mg PO QPM 12/21/24 01/06/25 History amlodipine 5 mg tablet (Norvasc) 5 mg PO QAM #30 tabs 12/25/24 01/06/25 Rx isosorbide mononitrate 30 mg 30 mg PO QAM #30 tabs 12/25/24 01/06/25 Rx tablet,extended release 24 hr Patient History Medical History Chronic diastolic heart failure Volume overload Arthritis Low magnesium level History of RSV infection & flu a few months ago. Tachycardia chronic high heart rate - unknown etiology - a few months ago increased dose of metoprolol. Rhinovirus dx May 23 [facility] & another illness dx - ? name of /antibiotic and inhalers for. feeling better: only symptom : sore throat. COPD (chronic obstructive pulmonary disease) ? dx of Peripheral neuropathy Diabetes mellitus, type 2 Hypertension Tobacco use Restrictive lung disease Elevated liver function tests History of DVT (deep vein thrombosis) "years ago">no known cause Tussive syncope "occurred only one time, no recent issues" Esophagitis Osteoarthritis Hx of pancreatitis resolved GERD (gastroesophageal reflux disease) Cardiac murmur A CHILD Erectile dysfunction MRSA (methicillin resistant Staphylococcus aureus) carrier over 2 yrs ago>"not sure where it was" Intellectual disability Obstructive sleep apnea cpap Obesity IBS (irritable bowel syndrome) History of ventricular tachycardia "nonsustained" Surgical History History of appendectomy 02/10/2023 History of reduction of nasal fracture 09/25/21-Dr. Garcia Status post incision and drainage LLE History of shoulder surgery right-2019 H/O foot surgery LEFT-2018 History of arthroscopy LEFT KNEE-1987 History of esophagogastroduodenoscopy (EGD) History of colonoscopy with most recent attempt: failed prep. Told would need a 2 day prep prior to colonoscopy in Sep 2023. History of tooth extraction History of tonsillectomy and adenoidectomy 1979 Family History Brother Family history of diabetes mellitus Environmental allergies Asthma Mother Family history of diabetes mellitus Hypertension Environmental allergies Father Family history of diabetes mellitus Hypertension Heart disease Grandfather (Paternal) Lung cancer smoker Aunt Bleeding disorder Other No family history of adverse response to anesthesia Social History Smoking Status: Current every day smoker Tobacco Type: Cigarettes Age Started Using Tobacco: 14; Cigarettes Per Day: 20; Second Hand Exposure: No; Do You Dip or Chew Tobacco: No; Hx Alcohol Use: Yes Alcohol type: beer Alcohol Intake Frequency: Monthly or Less Alcohol Intake Frequency Comment: seldom, a couple times per year if that per pt Hx Substance Use: No Preferred Language: Bahraini Communication Ability: Effective Home Economics Teacher Required: No Beliefs That Will Affect Care: None marital status: / marital status details: single at this time Current Living Situation: Family Current Living Situation Comment: lives with family and stays with his girlfriend. 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 other: girlfriend able to assist with dressing changes and care as needed Feels Safe at Home: Yes Diet: diabetic during the past year weight has: remained stable Assistive Devices: Prosthesis and Wheelchair Review of Systems Respiratory: no cough and no dyspnea Cardiovascular: + chest pain and + palpitations; no dysp lukas on exertion Physical Exam Constitutional: WD/WN, vitals as above well developed, well nourished and + overweight; not ill appearing Eyes: PERRL, conjunctivae normal, anicteric sclerae Neck: trachea midline, no thyromegaly Respiratory: normal respiratory effort, lungs clear to auscultation Cardiovascular: Rate/Rhythm: regular rate and regular rhythm Heart Sounds: normal S1 and normal S2; no murmur Vessels: no JVD Extremities: no edema Psychiatric: A+Ox3, euthymic affect Results & Data Vital Signs (Past 12 Hours) Vital Signs Temp Pulse Pulse Resp BP BP Pulse Ox 01/07/25 12:39 94 H 01/07/25 12:34 01/07/25 12:06 36.4 C L 97 H 20 102/67 92 01/07/25 11:28 98 H 24 141/70 H 92 01/07/25 09:57 92 H 18 114/41 L 96 01/07/25 09:55 01/07/25 09:06 93 H 20 106/59 L 98 01/07/25 08:54 89 17 95/66 L 99 01/07/25 08:12 95/66 L 95 01/07/25 08:09 107/65 92 01/07/25 08:01 107/65 01/07/25 08:01 107/65 01/07/25 08:01 107/65 01/07/25 07:20 95 H 19 90 01/07/25 07:17 95 H 01/07/25 07:03 122/76 98 01/07/25 07:01 93 H 22 122/76 96 01/07/25 06:00 95 H 12 130/77 92 01/07/25 05:24 88 16 108/80 96 01/07/25 05:12 88 16 97 01/07/25 04:21 16 94 01/07/25 04:06 91 H 16 114/72 90 01/07/25 03:10 91 H 16 95 01/07/25 03:09 76 12 73 L 01/07/25 03:00 90 18 133/64 95 01/07/25 02:28 93 H 14 96 O2 Del Method O2 Flow Rate 01/07/25 12:39 01/07/25 12:34 Room Air, Oxymask 01/07/25 12:06 Room Air 01/07/25 11:28 Room Air 01/07/25 09:57 Oxymask 4 01/07/25 09:55 Oxymask 4 01/07/25 09:06 Oxymask 4 01/07/25 08:54 Room Air 01/07/25 08:12 Room Air 01/07/25 08:09 Room Air 01/07/25 08:01 01/07/25 08:01 01/07/25 08:01 01/07/25 07:20 10 01/07/25 07:17 01/07/25 07:03 BiPAP 10 01/07/25 07:01 BiPAP 10 01/07/25 06:00 BiPAP 10 01/07/25 05:24 BiPAP 10 01/07/25 05:12 BiPAP 10 01/07/25 04:21 10 01/07/25 04:06 BiPAP 10 01/07/25 03:10 CPAP 8 01/07/25 03:09 CPAP 6 01/07/25 03:00 CPAP 6 01/07/25 02:28 6 Laboratory Results Laboratory Results WBC 7.52 K/ul (4.8-10.8) 01/07/25 04:12 RBC 4.50 M/uL (4.70-6.10) L 01/07/25 04:12 Hgb 11.8 g/dl (14.0-18.0) L 01/07/25 04:12 Hct 38.2 % (42.0-52.0) L 01/07/25 04:12 MCV 84.9 fL (80.0-100.0) 01/07/25 04:12 MCH 26.2 pg (25.0-34.0) 01/07/25 04:12 MCHC 30.9 g/dL (32.0-36.0) L 01/07/25 04:12 RDW Std Deviation 46.2 fL (36.4-46.3) 01/07/25 04:12 RDW Coeff of Abiodun 15.1 % (11.5-14.5) H 01/07/25 04:12 Plt Count 259 K/uL (130-400) 01/07/25 04:12 MPV 9.9 fL (9.4-12.4) 01/07/25 04:12 Immature Gran % (Auto) 1.7 % 01/07/25 04:12 Neut % (Auto) 61.9 % 01/07/25 04:12 Lymph % (Auto) 22.1 % 01/07/25 04:12 Stephens % (Auto) 9.3 % 01/07/25 04:12 Eos % (Auto) 4.3 % 01/07/25 04:12 Baso % (Auto) 0.7 % 01/07/25 04:12 Neut # (Auto) 4.66 K/uL (1.40-6.50) 01/07/25 04:12 Lymph # (Auto) 1.66 K/uL (1.20-3.40) 01/07/25 04:12 Stephens # (Auto) 0.70 K/uL (0.11-0.59) H 01/07/25 04:12 Eos # (Auto) 0.32 K/uL (0.00-0.50) 01/07/25 04:12 Baso # (Auto) 0.05 K/uL (0.00-0.20) 01/07/25 04:12 Immature Gran # (Auto) 0.13 K/uL (0.01-0.20) 01/07/25 04:12 PT 10.6 Seconds (9.0-12.0) 01/06/25 18:20 INR 1.0 (0.9-1.1) 01/06/25 18:20 APTT 27 Seconds (21-31) 01/06/25 18:20 PTT Ratio 1.0 01/06/25 18:20 D-Dimer 320 ug/L FEU (0-500) 01/06/25 18:20 Heparin Anti-Xa, Unfract 0.30 IU/ml (0.3-0.7) 01/07/25 10:56 VBG pH 7.34 (7.36-7.41) L 01/06/25 19:44 VBG pCO2 59 mmHg (38-50) H 01/06/25 19:44 VBG pO2 86 mmHg 01/06/25 19:44 VBG HCO3 32 mmol/L 01/06/25 19:44 VBG O2 Saturation 96.5 % 01/06/25 19:44 VBG Base Excess 4.3 mEq/L 01/06/25 19:44 Sodium 139 mmol/L (136-145) 01/07/25 04:12 Potassium 4.7 mmol/L (3.5-5.1) 01/07/25 04:12 Chloride 101 mmol/L (98-107) 01/07/25 04:12 Carbon Dioxide 32 mmol/L (21-32) 01/07/25 04:12 Anion Gap 6 (3-11) 01/07/25 04:12 BUN 41 mg/dl (6-23) H 01/07/25 04:12 Creatinine 1.63 mg/dl (0.6-1.4) H D 01/07/25 04:12 Est Cr Clr Drug Dosing 88.9 ml/min 01/07/25 04:12 eGFR 50.70 01/07/25 04:12 BUN/Creatinine Ratio 25.2 (10-20) H 01/07/25 04:12 Glucose 158 mg/dl (70-99(Fasting)) H 01/07/25 04:12 POC Glucose 187 mg/dl (70-99) H 01/07/25 11:35 Calcium 8.8 mg/dl (8.6-10.3) 01/07/25 04:12 Magnesium 1.6 mg/dl (1.7-2.4) L 01/06/25 18:20 Total Bilirubin 0.3 mg/dl (0.2-1.0) 01/06/25 18:20 AST 22 U/L (13-39) 01/06/25 18:20 ALT 19 U/L (7-52) 01/06/25 18:20 Alkaline Phosphatase 73 U/L (34-104) 01/06/25 18:20 Troponin I High Sens 11.1 pg/ml (0-20) 01/06/25 18:20 B-Natriuretic Peptide 71 pg/ml (0-100) 01/06/25 19:33 Total Protein 7.2 gm/dl (6.0-8.3) 01/06/25 18:20 Albumin 4.0 gm/dl (3.4-5.0) 01/06/25 18:20 Globulin 3.2 gm/dl (2.5-4.0) 01/06/25 18:20 Albumin/Globulin Ratio 1.3 (0.9-2) 01/06/25 18:20 Lipase 30 U/L (11-82) 01/06/25 18:20 TSH 1.329 uIu/ml (0.300-4.500) 01/06/25 18:20 Impressions Chest X-Ray 01/06/25 18:01 EXAM: XR chest 1V portable CLINICAL HISTORY: Chest pain, nonspecific. TECHNIQUE: X-ray images of the chest were obtained in posteroanterior (PA) projections. COMPARISON: CR dated 09/30/2024. FINDINGS: Pulmonary Parenchyma: Unchanged bilateral prominent pulmonary vascular markings with bilateral prominent hilar vascular shadows. No evidence of pleural effusion or pleural thickening. Heart and Mediastinum: Heart size and shape are normal. No mediastinal widening or masses. No hilar or mediastinal lymphadenopathy. Bony Thorax: Bony thorax appears intact without fractures or deformities. Soft Tissues: Soft tissues overlying the chest wall are unremarkable. IMPRESSION: 1. Prominent bilateral pulmonary vascular markings and hilar vascular shadows. Please correlate clinically as to congestion. 2. No significant interval change Electronically signed by Kevin Tucker 01-06-2025 7:14 PM Venous Doppler Study 01/06/25 19:42 Exam(s): US VENOUS LEFT LOWER EXTREMITY EXAM: US Duplex Left Lower Extremity Veins CLINICAL HISTORY: LLE edema and pain. TECHNIQUE: Real-time duplex ultrasound scan of the left lower extremity veins integrating B-mode two-dimensional vascular structure, Doppler spectral analysis, color flow Doppler imaging and compression. COMPARISON: No relevant prior studies available. FINDINGS: Deep veins: Unremarkable. No DVT in the visualized common femoral, femoral, proximal deep femoral or popliteal veins. The veins demonstrate normal color flow, are normally compressible, with normal phasic flow and/or augmentation response. The patient has a BKA. Superficial veins: Unremarkable. No thrombus in the saphenofemoral junction. Soft tissues: Subcutaneous edema noted distally. No loculated fluid collection. No popliteal cyst. IMPRESSION: 1. No evidence for deep vein thrombosis involving the left lower extremity. 2. Subcutaneous edema noted distally. Electronically signed by: Elmer Jose MD 01/07/25 01:36 AM Diagnostic Findings Cardiac Enzymes 01/06/25 01/06/25 Range/Units 18:20 19:33 AST 22 (13-39) U/L Troponin I High Sens 11.1 (0-20) pg/ml B-Natriuretic Peptide 71 (0-100) pg/ml Coagulation 01/06/25 01/06/25 Range/Units 18:20 19:33 PT 10.6 (9.0-12.0) Seconds APTT 27 (21-31) Seconds B-Natriuretic Peptide 71 (0-100) pg/ml CBC 01/06/25 01/07/25 Range/Units 18:20 04:12 WBC 7.52 7.52 (4.8-10.8) K/ul RBC 4.71 4.50 L (4.70-6.10) M/uL Hgb 12.2 L 11.8 L (14.0-18.0) g/dl Hct 39.1 L 38.2 L (42.0-52.0) % Plt Count 260 259 (130-400) K/uL Neut # (Auto) 4.59 4.66 (1.40-6.50) K/uL Lymph # (Auto) 1.63 1.66 (1.20-3.40) K/uL Stephens # (Auto) 0.70 H 0.70 H (0.11-0.59) K/uL Eos # (Auto) 0.34 0.32 (0.00-0.50) K/uL Baso # (Auto) 0.07 0.05 (0.00-0.20) K/uL Comprehensive Metabolic Panel 01/06/25 01/07/25 Range/Units 18:20 04:12 Sodium 140 139 (136-145) mmol/L Potassium 4.4 4.7 (3.5-5.1) mmol/L Chloride 101 101 (98-107) mmol/L Carbon Dioxide 35 H 32 (21-32) mmol/L BUN 34 H 41 H (6-23) mg/dl Creatinine 1.10 1.63 H D (0.6-1.4) mg/dl Glucose 209 H 158 H (70-99(Fasting)) mg/dl Calcium 9.4 8.8 (8.6-10.3) mg/dl AST 22 (13-39) U/L ALT 19 (7-52) U/L Alkaline Phosphatase 73 (34-104) U/L Total Protein 7.2 (6.0-8.3) gm/dl Albumin 4.0 (3.4-5.0) gm/dl Intake and Output 01/06/25 01/07/25 01/07/25 22:59 06:59 14:59 Intake Total 501 / 501 1213.94 / 1213.94 Output Total 800 / 800 Balance -299 / -299 1213.94 / 1213.94 Intake: IV 301 / 301 283.94 / 283.94 Heparin 96026 Unit/500 ml D5w 301 / 301 283.94 / 283.94 25,000 units In 500 ml @ 2,100 UNITS/HR 42 mls/hr IV .[id number] [facility] Rx#:[id number] Oral 200 / 200 930 / 930 Output: Urine 800 / 800 Other: Weight 166.4 kg 170 kg Weight Measurement Method Built in [facility] Built in [facility] (2) HTN (hypertension) Hypertension type: unspecified Qualified Code(s): I10 - Essential (primary) hypertension (5) Sleep apnea Sleep apnea type: unspecified type Qualified Code(s): G47.30 - Sleep apnea, unspecified
--- NOTE | 2025-01-07 15:34 | Hospitalist Progress Note ---
Date of Service January 07, 2025 Assessment & Plan (1) Heart palpitations: (2) Edema of left lower leg: Plan 49 year old male w/ PMH of chronic diastolic heart failure (EF 55 to 60%, TTE 2024), CAD, hypertension, hyperlipidemia, COPD/RLD, DAMION (current CPAP noncomplia nce), PE/DVT status post anticoagulation, DM2 on insulin pump, NAFLD, GERD, gastroparesis, pancreatitis, chronic anemia (baseline hemoglobin 11-12), morbid obesity, intellectual disability as per records, ongoing tobacco abuse admitted on obs given reports of atrial fibrillation on monitor briefly in ED as well as question of LLE swelling around stump. He is being managed for the following: #Palpitations Reports of a fib on monitor per ED, and was admitted on heparin drip holter monitor in place to be returned Wednesday Given question of a fib and the LLE swelling --> Cards evaled, no evidence of afib and hence dc anticoagulation. Hep drip dc'd 01/07. Cards recommending uptitrating isosorbide to 60 mg daily given ongoing chest discomfort. c/w telemetry. #Chronic Peripheral edema #LLE stump pain and swelling Less likely related to cellulitis, however, would be concerned for DVT as risk factors are present. ECHO 12/2024 reviewed. LLE duplex neg for DVT On torsemide daily, continue. Reports on spironolactone at home, however issue with hyperkalemia noted and patient seemingly poor historian with meds -Will resume at 25mg daily when able. Acute Kidney Injury: Baseline Cr around 1.2, Cr uptrended to 1.63 today, hold aldactone, c/w torsemide given slightly vol overload status. Labs in AM, consider nephro if worsening. #Hypertension #ASCVD continue asa, statin, Metoprolol, Imdur, losartan and amlodipine heart healthy diet, DMII and 2L FR #Uncontrolled DMTII A1C 10.2% 12/2024 glycemic pharmacy #DAMION: pt non compliant w/ cpap, avoid opiates on the patient as he desats easily during sleep if now wearing cpap. will get nocturnal pulse ox. DVt Hep sc. admit obs Admission and Anticipated Discharge Date Admission Date: January 06, 2025 Subjective Patient was seen and examined at bedside. Patient was lying in bed, on room air, NAD, resting comfortably. Per RN patient is desaturating into 50s during sleep and patient is noncompliant with CPAP. Patient denies fever/sore throat, reports eating okay and moving bowels okay. Discussed with patient given he has apneic episodes, I would like to avoid opiates pain medication if he is not able to use CPAP. Physical Exam Physical Exam: GENERAL APPEARANCE: AxOx4, morbidly obese gentleman, no acute distress HEENT: NC, AT. MMM. EOMI, clear conjunctiva, oropharynx clear. NECK: Supple without lymphadenopathy. No stiffness or restricted ROM. HEART: Normal rate and regular rhythm, normal S1/S1, no m/r/g LUNGS: difficult / habitus ABDOMEN: Soft, nontender, nondistended with good bowel sounds heard. BACK: No CVAT, no obvious deformity. EXTREMITIES: RLE without edema, LLE stump with left sided edema and no erythema. NEUROLOGICAL: Grossly nonfocal. Alert and oriented, moving all 4 extremities. CN not formally tested but appear grossly intact. Skin: Warm and dry without any rash. Results & Data Results & Data Vital Signs (Past 12 Hours) Vital Signs Temp Pulse Pulse Resp BP BP Pulse Ox 01/07/25 14:25 86 01/07/25 12:39 94 H 01/07/25 12:34 01/07/25 12:06 36.4 C L 97 H 20 102/67 92 01/07/25 11:28 98 H 24 141/70 H 92 01/07/25 09:57 92 H 18 114/41 L 96 01/07/25 09:55 01/07/25 09:06 93 H 20 106/59 L 98 01/07/25 08:54 89 17 95/66 L 99 01/07/25 08:12 95/66 L 95 01/07/25 08:09 107/65 92 01/07/25 08:01 107/65 01/07/25 08:01 107/65 01/07/25 08:01 107/65 01/07/25 07:20 95 H 19 90 01/07/25 07:17 95 H 01/07/25 07:03 122/76 98 01/07/25 07:01 93 H 22 122/76 96 01/07/25 06:00 95 H 12 130/77 92 01/07/25 05:24 88 16 108/80 96 01/07/25 05:12 88 16 97 01/07/25 04:21 16 94 01/07/25 04:06 91 H 16 114/72 90 O2 Del Method O2 Flow Rate 01/07/25 14:25 01/07/25 12:39 01/07/25 12:34 Room Air, Oxymask 01/07/25 12:06 Room Air 01/07/25 11:28 Room Air 01/07/25 09:57 Oxymask 4 01/07/25 09:55 Oxymask 4 01/07/25 09:06 Oxymask 4 01/07/25 08:54 Room Air 01/07/25 08:12 Room Air 01/07/25 08:09 Room Air 01/07/25 08:01 01/07/25 08:01 01/07/25 08:01 01/07/25 07:20 10 01/07/25 07:17 01/07/25 07:03 BiPAP 10 01/07/25 07:01 BiPAP 10 01/07/25 06:00 BiPAP 10 01/07/25 05:24 BiPAP 10 01/07/25 05:12 BiPAP 10 01/07/25 04:21 10 01/07/25 04:06 BiPAP 10
[2025-01-07] MEDS: LANTUS PER UNIT CHARGE SQ SCH (20:46)
[2025-01-07] MEDS: HEPARIN SOD 5,000 UNIT/0.5 ML VIAL SQ SCH (21:06)
[2025-01-07] MEDS: ACETAMINOPHEN 1,000 MG/100 ML VIAL IV STA (21:50)
[2025-01-07] MEDS: oxyCODONE HCL IR 5 MG TAB (IMMEDIATE RELEASE) PO STA (21:59)
--- NOTE | 2025-01-08 00:42 | CT Scan Report ---
Exam(s): CT ABDOMEN + PELVIS Without Contrast EXAM: CT Abdomen and Pelvis Without Intravenous Contrast CLINICAL HISTORY: Reason for exam: abd pain. TECHNIQUE: Axial computed tomography images of the abdomen and pelvis without intravenous contrast. Automated exposure control was utilized for the study. A dose lowering technique was utilized adhering to the principles of ALARA. COMPARISON: CT abdomen and pelvis: 11/08/2024 FINDINGS: Lung bases: There is mild left posterior basilar linear atelectasis/scar. The lung bases are otherwise clear. ABDOMEN: Liver: Unremarkable. Gallbladder and bile ducts: Unremarkable. No calcified stones. No ductal dilation. Pancreas: Unremarkable. No ductal dilation. Spleen: Unremarkable. No splenomegaly. Adrenals: Unremarkable. No mass. Kidneys and ureters: Unremarkable. No obstructing stones. No hydronephrosis. Stomach and bowel: Unremarkable. No obstruction. No mucosal thickening. PELVIS: Appendix: The appendix has been removed. Bladder: Unremarkable. No stones. Reproductive: Unremarkable as visualized. ABDOMEN and PELVIS: Intraperitoneal space: Unremarkable. No free air. No significant fluid collection. Bones/joints: No acute fracture. No dislocation. Soft tissues: Unremarkable. Vasculature: Unremarkable. No abdominal aortic aneurysm. Lymph nodes: Unremarkable. No enlarged lymph nodes. IMPRESSION: No acute intra-abdominal or pelvic abnormality. Electronically signed by: James Nixon MD 01/08/25 00:41 AM
[2025-01-08 02:36] LABS: Basophils # (auto) 0.05 K/uL (0.00-0.20); Basophils % (auto) 0.7 %; Eosinophils % (auto) 4.3 %; Hematocrit (blood only) 37.5 % (42.0-52.0); Hemoglobin 11.8 g/dl (14.0-18.0); Immature Granulocytes # (auto) 0.11 K/uL (0.01-0.20); Immature Granulocytes % (auto) 1.6 %; Lymphocytes # (auto) 2.05 K/uL (1.20-3.40); Lymphocytes % (auto) 29.6 %; Mean Corpuscular Hemoglobin 26.2 pg (25.0-34.0); Mean Corpuscular Hgb Conc 31.5 g/dL (32.0-36.0); Mean Corpuscular Volume 83.1 fL (80.0-100.0); Mean Platelet Volume 9.3 fL (9.4-12.4); Monocytes # (auto) 0.77 K/uL (0.11-0.59); Monocytes % (auto) 11.1 %; Neutrophils # (auto) 3.64 K/uL (1.40-6.50); Neutrophils % (auto) 52.7 %; Platelet Count 234 K/uL (130-400); RDW Standard Deviation 45.2 fL (36.4-46.3); Red Blood Count 4.51 M/uL (4.70-6.10); White Blood Count 6.92 K/ul (4.8-10.8)
[2025-01-08 02:50] LABS: Albumin Globulin Ratio 1.3 (0.9-2); Albumin Level 3.8 gm/dl (3.4-5.0); BUN Creatinine Ratio 28.4 (10-20); Bilirubin,Total 0.6 mg/dl (0.2-1.0); Creatinine Clr Calc Pharmacy 99.1 ml/min; Globulin 2.9 gm/dl (2.5-4.0); Potassium 3.8 mmol/L (3.5-5.1); Total Protein 6.7 gm/dl (6.0-8.3)
[2025-01-08 02:54] LABS: ANTI-Xa, UFH(UnfractionatedHep < 0.10 IU/ml (0.3-0.7)
[2025-01-08 04:37] LABS: Appearance Urine Clear (Clear); Bilirubin Urine Negative (Negative); Blood Urine Negative (Negative); Color Urine Yellow; Glucose Urine UA Negative (Negative); Ketones Urine Negative (Negative); Leukocyte Esterase Urine Negative (Negative); Nitrite Urine Negative (Negative); Protein Urine Negative (Negative); Urobilinogen Urine Negative (Negative); pH Urine 5.5 (4.5-7.5)
[2025-01-08 07:32] VITALS: PULSE 88; RESP 18
[2025-01-08] MEDS: ISOSORBIDE MONO EXTENDED REL 60 MG TABCR PO SCH (08:08)
[2025-01-08] MEDS: POLYETHYLENE (MIRALAX) 17 GM PACK PO SCH (09:20)
[2025-01-08] MEDS: DOCUSATE SODIUM 100 MG CAP PO SCH (09:20)
[2025-01-08] MEDS: LANTUS PER UNIT CHARGE SC SCH (09:20)
[2025-01-08] MEDS: SIMETHICONE 40 MG/0.6 ML 30ML PO PRN (10:29)
--- NOTE | 2025-01-08 10:46 | XRay Report ---
KUB HISTORY: rt flank pain COMPARISON STUDY: 07/24/2024 x-ray and CT of 01/07/2025. FINDINGS: There is moderate retained stool. No bowel obstruction seen. No definite renal calculi seen . IMPRESSION: No acute findings seen. ACT 112: Negative or not required by law. The above report was generated using voice recognition software. It may contain grammatical, syntax o r spelling errors. Electronically signed by: Prasanth Morelos M.D. 01/08/2025 10:45 AM
--- NOTE | 2025-01-08 11:13 | Pharmacy Report ---
Pharmacy Glycemic Short Note 2 - Date of Service January 08, 2025 - Glycemic Short BSG Results (Last 24 hours): 01/07/25 01/07/25 01/07/25 11:35 17:26 20:27 Glucose POC Glucose 187 H 169 H 442 H* 01/07/25 01/07/25 01/08/25 20:29 20:34 02:18 Glucose 148 H POC Glucose 204 H 217 H 01/08/25 07:53 Glucose POC Glucose 199 H OUTPATIENT ANTIDIABETIC REGIMEN: * Omnipod Novolog pump * 2.8 units/hr, ICR: 3, ISF: 9 (per Epic records) * Metformin 1 g PO BIDM HbA1c: 10.9% (12/23/24) ASSESSMENT: 01/08 * Bry received 153 units of insulin yesterday (80 were basal) * Fasting BSG this AM slightly elevated, will give all basal this AM for easier transition back to insulin pump on discharge * No changes to NovoLog at this time, no glycemic stressors noted at this time 01/07 * MAGGIE is a 49 year old male who presented to ED for evaluation of chest pain/heart palpitations * Heparin gtt (mixed in dextrose) initiated in ED for reports of afib on monitor - cardiology consulted * Patient managed w/ insulin pump as an outpatient, but utilizing SC basal/bolus while inpatient * Will utilize initial regimen that resembles outpatient pump settings PLAN FOR INPATIENT GLYCEMIC CONTROL: * Hold outpatient oral diabetes medications * Basal insulin * Lantus 80 units SQ daily * Bolus insulin * NovoLog per scale ACHS or Q6hrs while NPO * Goal Range: Low 110 mg/dL - High 140 mg/dL * Correction Factor: 10 mg/dL/unit * Nutritional / Prandial insulin per carb ratio of 1 unit per 4 grams CHO consumed
[2025-01-08 11:29] VITALS: BP 119/65; TEMP 98.1; O2SAT 95
--- NOTE | 2025-01-08 11:53 | Cardiology Progress Note ---
Date of Service January 08, 2025 Assessment & Plan (1) Chest pain: (2) HTN (hypertension): (3) Heart palpitations: (4) Dyslipidemia, goal LDL below 70: (5) Sleep apnea: Plan -HR and BP well controlled -He appears euvolemic on exam -Telemetry reviewed with no evidence of atrial dysrhythmia -Clinically, symptoms not suggestive angina. -Repeat EKG performed overnight last night reassuring. -Patient describes having been diagnosed with sleep apnea several years ago and did not tolerate a trial of CPAP, perhaps repeat outpatient assessment would be prudent to see if he would tolerate a different mask Patient is currently wearing a Zio Patch which had been placed as an outpatient. He may remove this and send it in from his home after discharge. No further cardiac testing felt to be indicated at this time. Admission and Anticipated Discharge Date Admission Date: January 06, 2025 Subjective Patient seen in cardiology follow-up. Chest discomfort improved. Still with subjective palpitations, similar to when I had seen him earlier this month. Nocturnal pulse oximetry revealed desaturation suggestive of known diagnosis of obstructive sleep apnea. Telemetry overnight and thus far today reveals sinus rhythm in the 70s. Physical Exam Constitutional: WD/WN, vitals as above well developed, well nourished and + overweight; not ill appearing Eyes: PERRL, conjunctivae normal, anicteric sclerae Neck: trachea midline, no thyromegaly Respiratory: normal respiratory effort, lungs clear to auscultation Cardiovascular: Rate/Rhythm: regular rate and regular rhythm Heart Sounds: normal S1 and normal S2; no murmur Vessels: no JVD Extremities: no edema Psychiatric: A+Ox3, euthymic affect Results & Data Vital Signs (Past 12 Hours) Vital Signs Temp Pulse Pulse Pulse Resp BP Pulse Ox 01/08/25 11:28 36.7 C 88 18 119/65 95 01/08/25 09:26 01/08/25 07:31 36.6 C 88 18 162/63 H 90 01/08/25 07:14 86 01/08/25 05:35 91 H 01/08/25 04:18 36.6 C 85 16 124/71 93 01/08/25 03:21 90 01/08/25 01:40 91 H Pulse Ox O2 Del Method O2 Del Method 01/08/25 11:28 Room Air 01/08/25 09:26 Room Air 03/24/25 07:31 Room Air 01/08/25 07:14 01/08/25 05:35 98 Room Air 01/08/25 04:18 Room Air 01/08/25 03:21 94 Room Air 01/08/25 01:40 86 L Room Air Laboratory Results Cardiac Enzymes 01/08/25 Range/Units 02:18 AST 20 (13-39) U/L CBC 01/08/25 Range/Units 02:18 WBC 6.92 (4.8-10.8) K/ul RBC 4.51 L (4.70-6.10) M/uL Hgb 11.8 L (14.0-18.0) g/dl Hct 37.5 L (42.0-52.0) % Plt Count 234 (130-400) K/uL Neut # (Auto) 3.64 (1.40-6.50) K/uL Lymph # (Auto) 2.05 (1.20-3.40) K/uL [place] # (Auto) 0.77 H (0.11-0.59) K/uL Eos # (Auto) 0.30 (0.00-0.50) K/uL Baso # (Auto) 0.05 (0.00-0.20) K/uL Comprehensive Metabolic Panel 01/08/25 Range/Units 02:18 Sodium 138 (136-145) mmol/L Potassium 3.8 (3.5-5.1) mmol/L Chloride 97 L (98-107) mmol/L Carbon Dioxide 36 H (21-32) mmol/L BUN 42 H (6-23) mg/dl Creatinine 1.48 H (0.6-1.4) mg/dl Glucose 148 H (70-99(Fasting)) mg/dl Calcium 9.0 (8.6-10.3) mg/dl AST 20 (13-39) U/L ALT 19 (7-52) U/L Alkaline Phosphatase 66 (34-104) U/L Total Protein 6.7 (6.0-8.3) gm/dl Albumin 3.8 (3.4-5.0) gm/dl Intake and Output 01/07/25 01/08/25 01/08/25 22:59 06:59 14:59 Intake Total 658.1 / 1872.04 Output Total 3100 / 4300 1200 / 4300 Balance -2441.9 / -2427.96 -1200 / -2427.96 Intake: IV 128.1 / 412.04 Heparin 40047 Unit/500 ml D5w 128.1 / 412.04 25,000 units In 500 ml @ 2,100 UNITS/HR 42 mls/hr IV .[id number] SOPHIA Rx#:[id number] Oral 530 / 1460 Output: Urine 3100 / 4300 1200 / 4300 Other: Weight 168.1 kg Weight Measurement Method Built in [facility] Diagnostic Findings EKG performed 01/07/2025 at 2102 and interpreted independently: Sinus rhythm at 90 bpm. Compared to the previous, incomplete right bundle branch block no longer present. (2) HTN (hypertension) Hypertension type: unspecified Qualified Code(s): I10 - Essential (primary) hypertension (5) Sleep apnea Sleep apnea type: unspecified type Qualified Code(s): G47.30 - Sleep apnea, unspecified
--- NOTE | 2025-01-08 12:08 | Discharge Summary ---
Date of Service January 08, 2025 Admission HPI Per Admitting Provider Mr. Akhtar is 49 year old medical history significant for chronic diastolic heart failure (EF 55 to 60%, TTE 2023), CAD, hypertension, hyperlipidemia, COPD/RLD, DAMION (current CPAP noncompliance), PE/DVT status post anticoagulation, DM2 on insulin pump, NAFLD, GERD, gastroparesis, history of pancreatitis, chronic anemia (baseline hemoglobin 11-12), morbid obesity, intellectual disability as per records, ongoing tobacco abuse presented to [facility] ED due to palpitations and LLE stump pain. Patient states since discharge he still feels his heart is racing. He also notes that he has LLE stump pain and swelling that has been worsening over the course of 2 weeks. He denies any other acute concerns. He states he is "sure [he] takes all of his medications." ED provider reports short episodes of paroxysmal atrial fibrillation "multiple times" on monitor in ED. Could not confirm. In the ED, vitals were notable for BP of 120-150s, HR of 80-90s and O2 sat of high 90s on oxymask while sleeping. Imaging revealed prominent pulmonary vascular markings ED interventions: none. Patient to be admitted to med/tele for further evaluation and management of palpitations c/f a fib and LLE pain Admission Exam Per Admitting Provider GENERAL APPEARANCE: AxOx4, morbidly obese gentleman, no acute distress HEENT: NC, AT. MMM. EOMI, clear conjunctiva, oropharynx clear. NECK: Supple without lymphadenopathy. No stiffness or restricted ROM. HEART: Normal rate and regular rhythm, normal S1/S1, no m/r/g LUNGS: difficult 2/2 habitus ABDOMEN: Soft, nontender, nondistended with good bowel sounds heard. BACK: No CVAT, no obvious deformity. EXTREMITIES: RLE without edema, LLE stump with left sided edema and slight erythema noted on medial aspect NEUROLOGICAL: Grossly nonfocal. Alert and oriented, moving all 4 extremities. CN not formally tested but appear grossly intact. Skin: Warm and dry without any rash. Principal Diagnosis Heart palpitation LLE stump pain and swelling, ruled out infection and DVT Acute kidney injury Discharge Exam GENERAL APPEARANCE: AxOx4, morbidly obese gentleman, no acute distress HEENT: NC, AT. MMM. EOMI, clear conjunctiva, oropharynx clear. NECK: Supple without lymphadenopathy. No stiffness or restricted ROM. HEART: Normal rate and regular rhythm, normal S1/S1, no m/r/g LUNGS: difficult 2/2 habitus ABDOMEN: Soft, nontender, nondistended with good bowel sounds heard. BACK: No CVAT, no obvious deformity. EXTREMITIES: RLE without edema, LLE stump - edema and erythema resolved. NEUROLOGICAL: Grossly nonfocal. Alert and oriented, moving all 4 extremities. CN not formally tested but appear grossly intact. Skin: Warm and dry without any rash. Discharge Data Allergies Allergy/AdvReac Type Severity Reaction Status Date / Time cefaclor [From Ceclor] Allergy Unknown childhood Verified 11/14/24 12:17 allergy ? Cephalosporins Allergy Unknown Unknown Verified 11/14/24 12:17 empagliflozin AdvReac Unknown put me Verified 11/14/24 12:17 [From Jardiance] into ketoacidosis? NSAIDS (Non-Steroidal AdvReac Unknown use with Verified 11/14/24 12:17 Anti-Inflamma caution : hx esophagus damage Consultations 01/06/25 18:56 ED Decision to Admit Stat 01/07/25 07:38 Consult Cardiology Routine Ordered Studies 01/06/25 19:42 US venous duplex leg [US venous doppler LE LT] Routine 01/07/25 21:22 CT Abd and Pelvis [CT abd pelvis wo con] Stat Hospital Course (1) Heart palpitations: (2) Edema of left lower leg: Plan 49 year old male w/ PMH of chronic diastolic heart failure (EF 55 to 60%, TTE 2024), CAD, hypertension, hyperlipidemia, COPD/RLD, DAMION (current CPAP noncompliance), PE/DVT status post anticoagulation, DM2 on insulin pump, NAFLD, GERD, gastroparesis, pancreatitis, chronic anemia (baseline hemoglobin 11-12), morbid obesity, intellectual disability as per records, ongoing tobacco abuse admitted on obs given reports of atrial fibrillation on monitor briefly in ED as well as question of LLE swelling around stump. He was managed for the following: #Palpitations Reports of a fib on monitor per ED, and was admitted on heparin drip holter monitor in place to be returned Wednesday Given question of a fib and the LLE swelling --> Cards evaled, no evidence of afib and hence dc'd anticoagulation. Isosorbide increased to 60 mg daily. f/u w/ cards upon dc. #Chronic Peripheral edema #LLE stump pain and swelling Less likely related to cellulitis, however, would be concerned for DVT as risk factors are present. ECHO 12/2024 reviewed. LLE duplex neg for DVT On torsemide daily, continue. Reports on spironolactone at home, however issue with hyperkalemia noted and patient seemingly poor historian with meds -Hold for now until renal fxn normalizes, pt advised to f/u w/ PCP in 3-5 days of dc. Acute Kidney Injury: Baseline Cr around 1.2, Cr uptrended to 1.63 01/07, today downtrended to 1.48, pt would like to go home today, hold aldactone until renal fxn normalizes/pt advised to f/u w/ pcp in 3-5 days of discharge to [facility] for this. c/w torsemide given slightly vol overload status. Nocturnal hypoxia: Nocturnal pulse ox 01/07 reviewed, pt needs O2 at home during nap and at night. #Hypertension #ASCVD continue asa, statin, Metoprolol, Imdur, losartan and amlodipine heart healthy diet, DMII and 2L FR #Uncontrolled DMTII A1C 10.2% 12/2024 glycemic pharmacy #DAMION: pt non compliant w/ cpap, avoid opiates on the patient as he desats easily during sleep if now wearing cpap. will get nocturnal pulse ox. DVt Hep sc. admit obs Patient is being discharged to home with following instructions at the point of discharge: Follow-up with your primary care physician within a week time and likely you will need labs CBC/CMP/magnesium/phosphorus. You were evaluated for palpitation, cardiology evaluated you, they increased your isosorbide to 60 Mg daily. Follow-up with your cardiology in 1 to 2 weeks time upon discharge. You were also evaluated for left lower extremity stump pain and swelling, your swelling and redness has improved. Continue fluid restriction of 2 L/day, continue with torsemide upon discharge. You were also noted to have acute kidney injury, given slightly volume overload status, recommend that you continue with torsemide. Continue to hold your Aldactone until further evaluation by your PCP office in 3 to 5 days upon discharge. As discussed at the bedside, you will need repeat blood test to evaluate your kidney function in 3 to 5 days, coordinate with your PCP office to set up the test/evaluation. You underwent nocturnal pulse oximetry test, you have sleep apnea. You will need at least nighttime oxygen, ideally you will need CPAP, recommend that you undergo sleep study as outpatient, coordinate with your PCP office to set up the test. Follow up with your diabetic clinic for close monitoring and management of your diabetes. Take your medications as prescribed. Please make sure that you are able to get your medications today by calling your pharmacy before you leave the hospital so that your treatment continuity is not broken. Home Health Attestation I certify that this patient is under my care and that I, or a physicians assistant womens volleyball coach working with me, had a face to-face encounter that meets the home health aydu-so-ojfo encounter requirements with this patient. The encounter with the patient was in whole, or in part, for the following medical condition, which is the primary reason for home health care (list med ical condition): I certify that, based on my findings, the following services are medically necessary home health services: My clinical findings support the need for the above services because: Further, I certify that my clinical findings support that this patient is homebound (i.e. absences from home require considerable and taxing effort and are for medical reasons or yarsanism services or infrequently or of short duration when for other reasons) because: Certification for Home Health Services: Based on the above findings, I certify that this patient is confined to the home and needs intermittent long term care, physical therapy and/or speech the rapy or continues to need occupational therapy. The patient is under my care, and I have initiated the establishment of the plan of care. This patient will be followed by a physician who will periodically review the plan of care. Total Time Total Time Spent Total Time Spent (In Minutes): 35 Discharge Plan Discharge Items Patient Disposition: Home - Self-Care Reason For Visit: CHEST PAIN,PALPITATIONS Discharge Diagnosis: Heart palpitation LLE stump pain and swelling, ruled out infection and DVT Acute kidney injury Activity: Resume your previous activity Non-emergency contact: Primary Care Provider Call non-emergency contact if: you have any medication questions, your symptoms worsen and your temperature is above 101 Follow-up/Referrals: Black Mayfield DO [World Designer] - (Date & Time 01/30/2025 3:00 PM Provider: Black Mayfield DO Cardiology, [facility] ) Velasquez Valencia MD [Primary Care Provider] - (Date & Time 01/15/2025 9:40 AM Provider: Velasquez Valencia MD [facility], [facility] ) Diet: Carb Consistent or DM2 and Heart Healthy Fluids: 2000ml (8 cups) Addtl Attending Provider Instructions: Follow-up with your primary care physician within a week time and likely you will need labs CBC/CMP/magnesium/phosphorus. You were evaluated for palpitation, cardiology evaluated you, they increased your isosorbide to 60 Mg daily. Follow-up with your cardiology in 1 to 2 weeks time upon discharge. You were also evaluated for left lower extremity stump pain and swelling, your swelling and redness has improved. Continue fluid restriction of 2 L/day, continue with torsemide upon discharge. You were also noted to have acute kidney injury, given slightly volume overload status, recommend that you continue with torsemide. Continue to hold your Aldactone until further evaluation by your PCP office in 3 to 5 days upon discharge. As discussed at the bedside, you will need repeat blood test to evaluate your kidney function in 3 to 5 days, coordinate with your PCP office to set up the test/evaluation. You underwent nocturnal pulse oximetry test, you have sleep apnea. You will need at least nighttime oxygen, ideally you will need CPAP, recommend that you undergo sleep study as outpatient, coordinate with your PCP office to set up the test. Follow up with your diabetic clinic for close monitoring and management of your diabetes. Take your medications as prescribed. Please make sure that you are able to get your medications today by calling your pharmacy before you leave the hospital so that your treatment continuity is not broken. Pending Studies at Discharge: No Stand-Alone Forms: My [facility] [place], Smoking Cessation Medications and DC Order Prescriptions: New isosorbide mononitrate 60 mg Tablet Extended Release 24 Hr 60 mg PO QAM Qty: 30 0RF docusate sodium 100 mg Capsule 100 mg PO BID PRN (Reason: constipation) Qty: 20 0RF simethicone [Infants Gas Relief] 40 mg/0.6 mL Drops,Suspension 80 mg PO Q6H PRN (Reason: abdominal distention) Qty: 30 0RF Continued dicyclomine 10 mg capsule 10 mg PO QID PRN (Reason: Diarrhea) haloperidol 1 mg tablet 1 mg PO QAM PRN (Reason: gastroparesis symptoms) metoprolol succinate 25 mg tablet extended release 24 hr 25 mg PO BID Qty: 60 0RF aspirin 81 mg tablet,delayed release (DR/EC) 81 mg PO QAM metformin 500 mg tablet extended release 24 hr 500 mg PO QAM torsemide 20 mg tablet 20 mg PO QPM amlodipine [Norvasc] 5 mg Tablet 5 mg PO QAM Qty: 30 0RF losartan 50 mg tablet 50 mg PO BID 30 Days Qty: 30 1RF atorvastatin 20 mg tablet 20 mg PO HS 30 Days Qty: 30 1RF terazosin 1 mg capsule 1 mg PO HS 30 Days Qty: 30 1RF omeprazole 40 mg capsule,delayed release(DR/EC) 40 mg PO DAILYBB 30 Days Qty: 30 1RF famotidine 20 mg tablet 20 mg PO HS 30 Days Qty: 30 1RF metoprolol succinate 100 mg tablet extended release 24 hr 100 mg PO BID Held spironolactone 25 mg tablet 50 mg PO DAILY Hold Instructions: Resume on 01/15/25. Hold until further evaluation by PCP in 3-5 days time upon discharge. Discontinued isosorbide mononitrate 30 mg Tablet Extended Release 24 Hr 30 mg PO QAM Qty: 30 0RF Discharge Orders: Discharge Order (Routine); Ordered 01/08/25 Ordered By: Ashley Reese Admission Data Admit Date/Time: 01/06/25 20:05 Attending Provider: Ashley Reese Admit Provider: Margaret Aalmo Primary Care Provider: Velasquez Valencia Other Providers: Margaret Alamo; Peter Rahman
--- NOTE | 2025-01-08 14:20 | Electrocardiogram Report ---
Test Reason : Blood Pressure : */* mmHG Vent. Rate : 90 BPM Atrial Rate : 90 BPM P-R Int : 140 ms QRS Dur : 102 ms QT Int : 388 ms P-R-T Axes : 57 24 66 degrees QTcB Int : 474 ms Poor data quality, interpretation may be adversely affected Normal sinus rhythm Poor R wave progression, consider anterior MT vs. lead placement vs. LVH Abnormal ECG When compared with ECG of 07-Jan-2025 09:53, Incomplete right bundle branch block is no longer Present Confirmed by George Morris ([id number]) on 01/08/2025 2:20:04 PM Referred By: REFERRED SELF Confirmed By: George Morris
== END 2025-01-08 13:40 | disposition home or self-care (01) ==
LOC: EDINP 17:51 → ED 17:51 → SUATTDRO 20:05 → 2W 21:51

== ENCOUNTER 2025-02-25 04:41 | Inpatient (IN) ==
[2025-02-25 05:46] LABS: Basophils # (auto) 0.08 K/uL (0.00-0.20); Basophils % (auto) 0.9 %; Eosinophils # (auto) 0.31 K/uL (0.00-0.50); Eosinophils % (auto) 3.4 %; Hematocrit (blood only) 41.1 % (42.0-52.0); Hemoglobin 12.2 g/dl (14.0-18.0); Immature Granulocytes # (auto) 0.12 K/uL (0.01-0.20); Immature Granulocytes % (auto) 1.3 %; Lymphocytes # (auto) 1.72 K/uL (1.20-3.40); Mean Corpuscular Hemoglobin 24.7 pg (25.0-34.0); Mean Corpuscular Hgb Conc 29.7 g/dL (32.0-36.0); Mean Corpuscular Volume 83.4 fL (80.0-100.0); Mean Platelet Volume 9.7 fL (9.4-12.4); Monocytes # (auto) 0.86 K/uL (0.11-0.59); Monocytes % (auto) 9.5 %; Neutrophils # (auto) 5.94 K/uL (1.40-6.50); Neutrophils % (auto) 65.9 %; Platelet Count 268 K/uL (130-400); RDW Coefficient of Variation 14.6 % (11.5-14.5); Red Blood Count 4.93 M/uL (4.70-6.10); White Blood Count 9.03 K/ul (4.8-10.8)
--- NOTE | 2025-02-25 06:02 | Emergency Department Note ---
Impression & Plan Hypoxia, Atypical chest pain, Hyperglycemia due to diabetes mellitus Admit to the [facility] ED Provider Note NAME: ROBERT BARAJAS Jr AGE: 49 SEX: Male INFORMANT: Patient ED PROVIDER(S): Robina Harry DO CHIEF COMPLAINT: palpitations and shortness of breath PLAN: Disposition: Admit to the [facility] MEDICAL DECISION MAKING: This is a 49-year-old male patient who awoke at 3:30 in the morning with chest discomfort, palpitations and shortness of breath. Symptoms initially went into his right arm and then went into the left arm. Patient describes having a cardiac cath approximately 1 month ago which was normal. Patient was given aspirin nitroglycerin by EMS with no relief of his symptoms. Upon arrival here in the emergency department, the patient had a nasal cannula in place but O2 saturations continued to drop into the 60s and 70s. He was moved to a oxy mask but would only maintain O2 saturations in the 80s. Portable chest x-ray was performed which showed no acute findings to explain the patient's significant hypoxia. Patient was becoming more lethargic and appeared to have episodes of sleep apnea. He was placed on a nonrebreather mask and encouraged to stay awake. A VBG was obtained which showed a pH of 7.2 but CO2 was not significantly high. Initially thought the patient might be hypercapnic. Patient denies a history of sleep apnea or requiring a CPAP machine for sleep. Patient was sent for CT scan of the chest to rule out PE. I still at the patient's bedside to monitor his breathing and witnessed severe and significant episodes of sleep apnea to the point that the patient's O2 saturations would drop into the 60s even with a nonrebreathing mask in place. This would seem plausible given the patient's large neck and body habitus. Laboratory studies revealed a normal troponin. BUN was 29 and creatinine was 1.23. Patient was significantly hyperglycemic with a blood sugar of 404. There was no leukocytosis noted. Patient was anemic with a hemoglobin of 12.2 which is baseline for this patient. [facility] care. The patient was asked to sit upright in the bed and remain awake with the nonrebreather mask on. This allowed the patient's O2 saturations to remain in the high 80s and low 90s. Care/management discussed with: architectural manager and [facility] Triage Nursing notes: reviewed and agree with them. Vital Signs: reviewed and remarkable for significant hypoxia Chronic Medical/Social Conditions affecting care: Morbid obesity and sleep apnea Differential Diagnosis: PE, GERD, cardiac ischemia, cardiac dysrhythmia, sleep apnea, hypercapnic respiratory failure, CHF Diagnostics, independently interpreted by me: ECG: Normal sinus rhythm at a rate of [address] segment elevation or signs of ischemia. There is no ectopy. Cardiac Monitoring: Normal sinus rhythm at a rate of 68 Imaging studies: Portable chest x-ray: Significant cardiomegaly with no pulmonary infiltrates, opacity or significant pulmonary vascular congestion. This was interpreted by me. HPI: 49 year old Male arrives for evaluation of substernal chest discomfort that radiated into his right arm with associated shortness of breath patient awoke from sleep at 3:30 in the morning feeling his heartbeat and some shortness of breath. He then noted that he was having discomfort in the chest that was radiating into his right arm. He then felt increasingly short of breath and called EMS. Patient describes having a cardiac cath approximately 1 month ago that was negative for blockages. PAST MEDICAL HISTORY: See Below, PAST SURGICAL HISTORY: See Below, SOCIAL HISTORY: See Below, HOME MEDICATIONS: See list ALLERGIES: See list VITALS: See Below PHYSICAL EXAMINATION: HEENT: Head - normocephalic and atraumatic. Pupils are equal, round, and reactive to light. Extraocular eye muscles are intact, and sclera are anicteric. Nose - moist nasal mucosa without discharge. Mouth - moist buccal mucosa. Oropharynx is nonerythematous and there is no tonsillar exudate or edema noted. Neck: Supple; no JVD, nuchal rigidity, cervical lymphadenopathy, or auscultated bruits. Heart: Heart sounds were extremely distant secondary to body habitus. regular rate and rhythm. There is a normal S1 and S2 with no murmurs, clicks, or gallops appreciated. Lungs: Lung sounds were distant secondary to body habitus. clear to auscultation bilaterally with no wheezes, rales, or rhonchi. Abdomen: Soft, completely nontender, nondistended, with good bowel sounds. There are no palpable pulsatile masses or hepatosplenomegaly. There is no guarding, rigidity, or rebound noted. Extremities: No evidence of cyanosis, clubbing, or edema. There are easily palpable peripheral pulses. Skin: warm and dry with good turgor and no rashes. Emergency Department course: The patient was evaluated in room A-2. An order was placed for continuous cardiac monitoring. The patient was in a normal sinus rhythm at a rate of 68. A twelve-lead EKG was obtained as described above. Laboratory studies were drawn as above. Portable chest x-ray was performed. The patient was switched from a nasal cannula to an oxime mask as O2 saturations were going as low as 62% on the nasal cannula. Patient appeared to become more somnolent or lethargic. A VBG was obtained which showed a pH of 7.2 and no evidence of hypercapnia. Patient went for CTA of the chest to rule out PE. Patient was placed on a nonrebreather mask at 15 L which was able to maintain his O2 saturations greater than 90%. [facility] for further [facility] care. I have personally spent greater than 70 minutes of critical care time in the direct management of this patient. This includes bedside care, interpretation of diagnostic studies, and testing, discussion with consultants, patient, and family members, and other required patient management activities. This 70 minutes is in excess of all separately billable procedures. Past Med/Surg History Problem List (Updated 02/26/25 @ 18:43 by Robina Harry DO) Hyperglycemia due to diabetes mellitus (Acute) Atypical chest pain (Acute) Hypoxia (Acute) Hypertensive heart disease ASCVD (arteriosclerotic cardiovascular disease) Acute on chronic diastolic heart failure Injury of back due to fall (Acute) Edema of left lower leg Hypoxia (Acute) Heart palpitations (Acute) Chest pain (Acute) AF (paroxysmal atrial fibrillation) (Acute) CAD (coronary artery disease) Bronchitis HTN (hypertension) (Acute) Chest pain (Acute) Abnormal nuclear cardiac imaging test Dyslipidemia, goal LDL below 70 Acute hyperglycemia (Acute) Abnormal stress test (Acute) Precordial chest pain (Acute) HTN, goal below 130/80 Diarrhea (Acute) Chest pain (Acute) Generalized pain (Acute) Hyperglycemia due to type 2 diabetes mellitus (Acute) Chest pain (Acute) Chest pain Atypical chest pain Noncompliance with CPAP treatment Hypomagnesemia (Acute) Elevated lactic acid level (Acute) PASHA (acute kidney injury) (Acute) Abdominal pain (Acute) Acute and chronic respiratory failure with hypercapnia Shortness of breath (Acute) 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 Garcia Morbid obesity (Acute) Chronic respiratory failure with hypercapnia Diabetic peripheral neuropathy associated with type 2 diabetes mellitus Loss of protective sensation of skin of foot Epigastric abdominal pain Encounter for pre-operative examination Colon polyp Medical History Chronic diastolic heart failure Volume overload Arthritis Low magnesium level History of RSV infection & flu a few months ago. Tachycardia chronic high heart rate - unknown etiology - a few months ago increased dose of metoprolol. Rhinovirus dx May 23 [facility] & another illness dx - ? name of /antibiotic and inhalers for. feeling better: only symptom : sore throat. COPD (chronic obstructive pulmonary disease) ? dx of Peripheral neuropathy Diabetes mellitus, type 2 Hypertension Tobacco use Restrictive lung disease Elevated liver function tests History of DVT (deep vein thrombosis) "years ago">no known cause Tussive syncope "occurred only one time, no recent issues" Esophagitis Osteoarthritis Hx of pancreatitis resolved GERD (gastroesophageal reflux disease) Cardiac murmur A CHILD Erectile dysfunction MRSA (methicillin resistant Staphylococcus aureus) carrier over 2 yrs ago>"not sure where it was" Intellectual disability Obstructive sleep apnea cpap Obesity IBS (irritable bowel syndrome) History of ventricular tachycardia "nonsustained" Surgical History History of appendectomy 02/10/2023 History of reduction of nasal fracture 09/25/21-Dr. Garcia Status post incision and drainage LLE History of shoulder surgery right-2019 H/O foot surgery LEFT-2018 History of arthroscopy LEFT [id number] History of esophagogastroduodenoscopy (EGD) History of colonoscopy with most recent attempt: failed prep. Told would need a 2 day prep prior to colonoscopy in Sep 2023. History of tooth extraction History of tonsillectomy and adenoidectomy 1979 Family History Brother Family history of diabetes mellitus Environmental allergies Asthma Mother Family history of diabetes mellitus Hypertension Environmental allergies Father Family history of diabetes mellitus Hypertension Heart disease Grandfather (Paternal) Lung cancer smoker Aunt Bleeding disorder Other No family history of adverse response to anesthesia Social History Smoking Status: Current every day smoker Tobacco Type: Cigarettes Age Started Using Tobacco: 14; Cigarettes Per Day: 20; Second Hand Exposure: No; Do You Dip or Chew Tobacco: No; Hx Alcohol Use: Yes Alcohol type: beer Alcohol Intake Frequency: Monthly or Less Alcohol Intake Frequency Comment: seldom, a couple times per year if that per pt Hx Substance Use: No Preferred Language: Amharic Communication Ability: Effective Insurance Customer Service Specialist Required: No Beliefs That Will Affect Care: None marital status: / marital status details: single at this time Current Living Situation: Family Current Living Situation Comment: lives with family and stays with his girlfriend. 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 Cephalosporins Allergy Unknown Unknown Verified 11/14/24 12:17 empagliflozin AdvReac Unknown put me Verified 11/14/24 12:17 [From Jardiance] into ketoacidosis? NSAIDS (Non-Steroidal AdvReac Unknown use with Verified 11/14/24 12:17 Anti-Inflamma caution : hx esophagus damage Home Meds Home Medications Medication Instructions Recorded Confirmed dicyclomine 10 mg capsule 10 mg PO QID PRN Diarrhea 05/01/20 01/06/25 metoprolol succinate 100 mg 100 mg PO BID 09/30/24 01/06/25 tablet,extended release 24 hr haloperidol 1 mg tablet 1 mg PO QAM PRN gastroparesis 10/10/24 01/06/25 symptoms aspirin 81 mg tablet,delayed 81 mg PO QAM 12/21/24 01/06/25 release metformin 500 mg tablet,extended 500 mg PO QAM 12/21/24 01/06/25 release 24 hr spironolactone 25 mg tablet 50 mg PO DAILY 12/21/24 01/06/25 torsemide 20 mg tablet 20 mg PO QPM 12/21/24 01/06/25 Previous Rx's Medication Instructions Recorded atorvastatin 20 mg tablet 20 mg PO HS 30 days #30 tabs 09/17/24 famotidine 20 mg tablet 20 mg PO HS 30 days #30 tabs 09/17/24 losartan 50 mg tablet 50 mg PO BID 30 days #30 tabs 09/17/24 omeprazole 40 mg capsule,delayed 40 mg PO DAILYBB 30 days #30 caps 09/17/24 release terazosin 1 mg capsule 1 mg PO HS 30 days #30 caps 09/17/24 metoprolol succinate 25 mg 25 mg PO BID #60 tabs 10/12/24 tablet,extended release 24 hr amlodipine 5 mg tablet (Norvasc) 5 mg PO QAM #30 tabs 12/25/24 docusate sodium 100 mg capsule 100 mg PO BID PRN constipation #20 01/08/25 caps isosorbide mononitrate 60 mg 60 mg PO QAM #30 tabs 01/08/25 tablet,extended release 24 hr simethicone 40 mg/0.6 mL oral 80 mg (1.2 mL) PO Q6H PRN 01/08/25 drops,suspension (Infants Gas abdominal distention #30 mL Relief) Results & Data (ED) Vital Signs Vital Signs - 24 hr 02/25/25 04:34 02/25/25 04:50 02/25/25 04:57 Temperature 36.6 C Temperature Source Oral Pulse Rate 88 Pulse Rate [Right Finger] 86 Respiratory Rate 16 Respiratory Effort / Characteristics Spontaneous Respiratory Depth Blood Pressure Blood Pressure [Right Arm] 144/58 H Blood Pressure Mean Blood Pressure Mean [Right Arm] 86 Blood Pressure Position Pulse Oximetry 96 Oxygen Delivery Method Nasal Cannula Nasal Cannula Oxygen Flow Rate 4 Sepsis Recent Fever Within 48 Hours Sepsis New/Unexplained Change in Mental Status Sepsis Action Taken by Nursing 02/25/25 05:02 02/25/25 05:02 02/25/25 05:34 Temperature 36.6 C Temperature Source Oral Pulse Rate 87 84 Pulse Rate [Right Finger] Respiratory Rate 17 20 Respiratory Effort / Characteristics Respiratory Depth Normal Blood Pressure 131/95 Blood Pressure [Right Arm] Blood Pressure Mean 107 Blood Pressure Mean [Right Arm] Blood Pressure Position Lying Pulse Oximetry 95 95 90 Oxygen Delivery Method Nasal Cannula Nasal Cannula Room Air Oxygen Flow Rate 4 4 Sepsis Recent Fever Within 48 Hours No Sepsis New/Unexplained Change in Mental Status N/A Sepsis Action Taken by Nursing No Action Required Laboratory Data 02/26/25 05:23 02/26/25 05:23 Lab Results 02/25/25 02/25/25 Range/Units 05:34 06:38 WBC 9.03 (4.8-10.8) K/ul RBC 4.93 (4.70-6.10) M/uL Hgb 12.2 L (14.0-18.0) g/dl Hct 41.1 L (42.0-52.0) % MCV 83.4 (80.0-100.0) fL MCH 24.7 L (25.0-34.0) pg MCHC 29.7 L (32.0-36.0) g/dL RDW Std Deviation 44.0 (36.4-46.3) fL RDW Coeff of Abiodun 14.6 H (11.5-14.5) % Plt Count 268 (130-400) K/uL MPV 9.7 (9.4-12.4) fL Immature Gran % (Auto) 1.3 % Neut % (Auto) 65.9 % Lymph % (Auto) 19.0 % Rich % (Auto) 9.5 % Eos % (Auto) 3.4 % Baso % (Auto) 0.9 % Neut # (Auto) 5.94 (1.40-6.50) K/uL Lymph # (Auto) 1.72 (1.20-3.40) K/uL Rich # (Auto) 0.86 H (0.11-0.59) K/uL Eos # (Auto) 0.31 (0.00-0.50) K/uL Baso # (Auto) 0.08 (0.00-0.20) K/uL Immature Gran # (Auto) 0.12 (0.01-0.20) K/uL VBG pH 7.32 L (7.36-7.41) VBG pCO2 36 L (38-50) mmHg VBG pO2 186 mmHg VBG HCO3 19 mmol/L VBG O2 Saturation 97.7 % VBG Base Excess -6.9 mEq/L Sodium 137 (136-145) mmol/L Potassium 4.6 (3.5-5.1) mmol/L Chloride 97 L (98-107) mmol/L Carbon Dioxide 37 H (21-32) mmol/L Anion Gap 3 (3-11) BUN 29 H (6-23) mg/dl Creatinine 1.23 (0.6-1.4) mg/dl Est Cr Clr Drug Dosing 120.0 ml/min eGFR 71.08 BUN/Creatinine Ratio 23.6 H (10-20) Glucose 404 H* (70-99(Fasting)) mg/dl Calcium 9.3 (8.6-10.3) mg/dl Total Bilirubin 0.4 (0.2-1.0) mg/dl AST 14 (13-39) U/L ALT 19 (7-52) U/L Alkaline Phosphatase 76 (34-104) U/L Troponin I High Sens 12.0 (0-20) pg/ml Total Protein 7.2 (6.0-8.3) gm/dl Albumin 3.7 (3.4-5.0) gm/dl Globulin 3.5 (2.5-4.0) gm/dl Albumin/Globulin Ratio 1.1 (0.9-2) Lipase 28 (11-82) U/L Administered Medications Acetaminophen (Acetaminophen 325 Mg Tab) 650 mg PO Q4H PRN PRN Reason: Pain or Fever Stop: 03/27/25 08:06 Last Admin: 02/26/25 17:29 Dose: 650 mg Documented By: [facility] Admin: 02/26/25 10:41 Dose: 650 mg Documented By: [facility] Admin: 02/25/25 20:59 Dose: 650 mg Documented By: COLTON Amlodipine Besylate (Amlodipine Besylate 5 Mg Tab) 5 mg PO [facility] Stop: 03/27/25 12:04 Last Admin: 02/26/25 08:48 Dose: 5 mg Documented By: [facility] Admin: 02/25/25 14:05 Dose: 5 mg Documented By: MARTIN Aspirin (Aspirin 81 Mg Ectab) 81 mg PO [facility] Stop: 03/27/25 12:04 Last Admin: 02/26/25 08:47 Dose: 81 mg Documented By: Admin: 02/25/25 14:05 Dose: 81 mg Documented By: MARTIN Atorvastatin Calcium (Atorvastatin 20 Mg Tab) 20 mg PO HS [facility] Stop: 03/27/25 20:59 Last Admin: 02/25/25 20:14 Dose: 20 mg Documented By: COLTON Dicyclomine HCl (Dicyclomine Hcl 10 Mg Cap) 10 mg PO QID PRN PRN Reason: Diarrhea Stop: 03/27/25 12:04 Last Admin: 02/25/25 14:05 Dose: 10 mg Documented By: MARTIN Enoxaparin Sodium (Enoxaparin Inj 40 Mg/0.4 Ml Syr) 40 mg SQ Q12H [facility] Stop: 03/27/25 12:29 Last Admin: 02/26/25 11:48 Dose: 40 mg Documented By: Admin: 02/26/25 00:15 Dose: 40 mg Documented By: Admin: 02/25/25 14:02 Dose: 40 mg Documented By: MARTIN Famotidine (Famotidine 20 Mg Tab) 20 mg PO [facility] Stop: 03/27/25 20:59 Last Admin: 02/25/25 20:15 Dose: 20 mg Documented By: COLTON Insulin Aspart (Insulin Aspart Per Unit Charge) 0 units SC ACHS [facility] Stop: 03/27/25 11:29 Last Admin: 02/26/25 17:28 Dose: 24 units Documented By: MIN Co-signed By: KATEY Admin: 02/26/25 11:46 Dose: 28 units Documented By: MIN Co-signed By: AUSTEN Admin: 02/26/25 08:40 Dose: 10 units Documented By: MIN Co-signed By: IRMA Admin: 02/25/25 20:45 Dose: Not Given Documented By: Admin: 02/25/25 17:18 Dose: 19 units Documented By: MARTIN Co-signed By: BRIAN Admin: 02/25/25 14:42 Dose: 20 units Documented By: MARTIN Co-signed By: BRIAN Insulin Glargine (Lantus Per Unit Charge) 80 units SC DAILY [facility] Stop: 03/28/25 08:59 Last Admin: 02/26/25 08:40 Dose: 80 units Documented By: MIN Co-signed By: IRMA Isosorbide Mononitrate (Isosorbide Rich Extended Rel 60 Mg Tabcr) 60 mg PO QAM [facility] Stop: 03/27/25 12:04 Last Admin: 02/26/25 08:47 Dose: 60 mg Documented By: Admin: 02/25/25 14:02 Dose: 60 mg Documented By: MARTIN Losartan Potassium (Losartan Potassium 50 Mg Tab) 50 mg PO BID [facility] Stop: 03/27/25 12:04 Last Admin: 02/26/25 08:48 Dose: 50 mg Documented By: Admin: 02/25/25 20:14 Dose: 50 mg Documented By: Admin: 02/25/25 14:03 Dose: 50 mg Documented By: MARTIN Metoprolol Succinate (Metoprolol Succ 50mg Ext Rel Tab) 150 mg PO BID [facility] Stop: 03/27/25 20:59 Last Admin: 02/26/25 08:47 Dose: 150 mg Documented By: Admin: 02/25/25 20:15 Dose: 150 mg Documented By: COLTON Pantoprazole Sodium (Pantoprazole 40 Mg Tab) 40 mg PO DAILYBB [facility] Stop: 03/28/25 06:29 Last Admin: 02/26/25 05:30 Dose: 40 mg Documented By: JOHN Spironolactone (Spironolactone 25 Mg Tab) 50 mg PO DAILY [facility] Stop: 03/27/25 12:04 Last Admin: 02/26/25 08:48 Dose: 50 mg Documented By: Admin: 02/25/25 14:04 Dose: 50 mg Documented By: MARTIN Terazosin HCl (Terazosin Hcl 1 Mg Cap) 1 mg PO HS [facility] Stop: 03/27/25 20:59 Last Admin: 02/25/25 20:14 Dose: 1 mg Documented By: COLTON Torsemide (Torsemide 20 Mg Tab) 20 mg PO QAM [facility] Stop: 03/28/25 08:59 Last Admin: 02/26/25 09:46 Dose: 20 mg Documented By: MIN Discontinued Medications Furosemide (Furosemide 40 Mg/4 Ml Vial) 40 mg IV ONE ONE Stop: 02/25/25 08:07 Last Admin: 02/25/25 10:14 Dose: 40 mg Documented By: TERESA Furosemide (Furosemide 40 Mg/4 Ml Vial) 40 mg IV [id number] [facility] Stop: 03/27/25 13:59 Last Admin: 02/26/25 08:08 Dose: 40 mg Documented By: Admin: 02/25/25 14:02 Dose: 40 mg Documented By: MARTIN Furosemide (Furosemide 40 Mg/4 Ml Vial) Confirm Administered Dose 40 mg IV .STK- MED ONE Stop: 02/25/25 10:09 Last Admin: 02/25/25 10:15 Dose: Not Given Documented By: TERESA Hydromorphone HCl (Hydromorphone Inj 0.5 Mg/0.5 Ml Syr) 0.25 mg IV NOW STA Stop: 02/25/25 15:22 Last Admin: 02/25/25 17:20 Dose: 0.25 mg Documented By: MARTIN Hydromorphone HCl (Hydromorphone Inj 0.5 Mg/0.5 Ml Syr) 0.25 mg IV NOW STA Stop: 02/26/25 14:55 Last Admin: 02/26/25 15:05 Dose: 0.25 mg Documented By: MIN Insulin Human Regular 10 units (/ Syringe) 10 mls @ 30 mls/min IV NOW ONE Stop: 02/25/25 14:31 Last Admin: 02/25/25 14:48 Dose: 30 mls/min Documented By: MARTIN Co-signed By: BRIAN Insulin Aspart (Insulin Aspart Per Unit Charge) 0 units SC NOW STA Stop: 02/25/25 09:14 Last Admin: 02/25/25 10:14 Dose: 22 units Documented By: TERESA Co-signed By: JS Insulin Glargine (Lantus Per Unit Charge) 70 units SQ NOW STA Stop: 02/25/25 09:28 Last Admin: 02/25/25 10:14 Dose: 70 units Documented By: TERESA Co-signed By: JS Ioversol (Optiray 320 125ml) 186 ml IV ONCE ONE Stop: 02/25/25 06:58 Last Admin: 02/25/25 06:58 Dose: 186 ml Documented By: CHELSEA Metoprolol Succinate (Metoprolol Succ 50mg Ext Rel Tab) 100 mg PO BID [facility] Stop: 03/27/25 12:04 Last Admin: 02/25/25 14:03 Dose: 100 mg Documented By: MARTIN Metoprolol Succinate (Metoprolol Succ 25mg Ext Rel Tab) 25 mg PO BID [facility] Stop: 03/27/25 12:04 Last Admin: 02/25/25 14:04 Dose: 25 mg Documented By: MARTIN Discharge Plan Visit Data Chief Complaint: Chest Pain Stated Complaint: CHEST PAIN, SOB, ARM PAIN ED Provider: Robina Harry Discharge Problem: Hypoxia, Atypical chest pain, Hyperglycemia due to diabetes mellitus Patient Disposition: Admitted As Inpatient Condition: Critical Discharge Instructions Interventions: ED Discharge Assessment Last Done: 02/25/25 11:07
--- NOTE | 2025-02-25 06:31 | XRay Report ---
EXAM: XR chest 1V portable CLINICAL HISTORY: Chest pain, nonspecific TECHNIQUE: An X-ray image of the chest is obtained in AP projection. COMPARISON: 01/06/2025. FINDINGS: Pulmonary Parenchyma: Unchanged bilateral prominent pulmonary vascular markings with bilateral prominent hilar vascular shadows. Non-specific. This could be due to pulmonary congestion. There is a new airspace opacification in right lung lower zone, infrahilar region. No evidence of pleural effusion or pleural thickening. Heart and Mediastinum: Heart size can not be assessed. No mediastinal widening or masses. No hilar or mediastinal lymphadenopathy. Bony Thorax: Bony thorax appears intact without fractures or deformities. Soft Tissues: Soft tissues overlying the chest wall are unremarkable. Interval non visualization of left sided external chest device. IMPRESSION: 1. There is a new airspace opacification in right lung lower zone, infrahilar region. Can be an infective focus. Suggest clinical correlation and follow up radiographs. 2. Unchanged perhilar congestion. Need clinical correlation. 3. No significant interval changes. Electronically signed by Kevin Tucker 02-25-2025 06:31 AM
[2025-02-25 06:35] LABS: Albumin Globulin Ratio 1.1 (0.9-2); Albumin Level 3.7 gm/dl (3.4-5.0); BUN Creatinine Ratio 23.6 (10-20); Bilirubin,Total 0.4 mg/dl (0.2-1.0); Calcium 9.3 mg/dl (8.6-10.3); Globulin 3.5 gm/dl (2.5-4.0); Potassium 4.6 mmol/L (3.5-5.1); Total Protein 7.2 gm/dl (6.0-8.3)
[2025-02-25 06:45] LABS: Base Excess VBG -6.9 mEq/L; HCO3 VBG 19 mmol/L; Oxygen Saturation VBG 97.7 %; PCO2 VBG 36 mmHg (38-50); PO2 VBG 186 mmHg; pH VBG 7.32 (7.36-7.41)
[2025-02-25] MEDS: OPTIRAY 320 125ml IV ONE (06:58)
--- NOTE | 2025-02-25 07:43 | CT Scan Report ---
EXAM: CT angio chest PE protocol CLINICAL HISTORY: PE, c/o chest pain, radiating down left arm SOB repeated scan due to poor opacification TECHNIQUE: Contiguous axial images were obtained from the neck base through the upper abdomen following intravenous administration of iodinated contrast material. Angiographic images were processed, 3D MIP images were acquired for interpretation. If IV contrast material had not been administered, the likelihood of detecting abnormalities relevant to the patient's condition would have been substantially decreased. Coronal and sagittal 3-D MIPs were likewise performed and indicated to increase the sensitivity of detectin diffuse clinically relevant pathology. CT scan was performed according to ALARA (as low as reasonable achievable). COMPARISON: none. FINDINGS: Partial image degradation due to respiratory motion artifacts. Adequate contrast bolus without evidence of pulmonary embolism. Attenuation of bilateral lung thomas. Ill-defined ground-glass opacities in dependent portions of left lower lobe - likely positional The central airways are patent. The lungs are clear. No pleural effusion. The heart, aorta, and pulmonary arteries are of normal size and configuration. There are no appreciable coronary artery and aortic atherosclerotic calcifications. No pericardial effusion is identified. The thyroid is unremarkable. No mediastinal, hilar, or axillary lymphadenopathy is noted. No suspicious lytic or sclerotic osseous lesions are identified. IMPRESSION: No evidence of pulmonary embolism or pulmonary disease. Electronically signed by Edward Ojeda 02-25-2025 07:43 AM
[2025-02-25] MEDS ORDERED: PHARMACY GLYCEMIC MGMT CONSULT PRN (08:07)
[2025-02-25] MEDS ORDERED: DEXTROSE 50% 50 ML SYRINGE IV PRN (08:07)
[2025-02-25] MEDS ORDERED: GLUCOSE 10 TAB/TUBE PO PRN (08:07)
[2025-02-25] MEDS ORDERED: GLUCAGON FOR INJ 1 MG VIAL SQ PRN (08:07)
[2025-02-25] MEDS ORDERED: ALUMINUM/MAGNESIUM SUSP 30 ML UDC PO PRN (08:07)
[2025-02-25] MEDS ORDERED: CARBOHYDRATES FOR HYPOGLYCEMIA PO PRN (08:07)
[2025-02-25] MEDS ORDERED: GLUCOSE 40% GEL 15 GM TUBE PO PRN (08:07)
--- NOTE | 2025-02-25 08:29 | History & Physical Report ---
Date of Service February 25, 2025 Assessment & Plan (1) CAD (coronary artery disease): (2) Noncompliance with CPAP treatment: (3) Acute on chronic diastolic heart failure: Plan Assessment/plan Acute hypoxic respiratory failure Acute on chronic diastolic heart failure Patient presents to the hospital with chest pain with radiation to both arms; found to be hypoxic to 70% in room air Chest x-ray and CTA chest consistent with pulmonary edema On torsemide twice daily; questionable compliance to spironolactone Last echocardiogram in December 2024 showed EF of 55 to 60% with grade 1 diastolic dysfunction. Started on Lasix 40 mg twice daily. will start on bipap, hypoxia present while patient is sleeping; likely related with untreated DAMION. Strict input and output monitoring Daily weights Chest pain History of CAD Last cardiac cath on September 2024 which 50% proximal LAD, 50% mid LAD, 100% diagonal branch vessel occlusion, 40% mid circumflex, 40% obtuse marginal vessel stenosis, normal right coronary artery Will trend troponin Monitor for recurrence of chest pain Cardiology consulted for comanagement Continue aspirin, Lipitor, metoprolol and imdur Type 2 DM II A1C 10.2% 12/2024 glycemic pharmacy discontinue insulin pump on sc insulin while inpatient DAMION- noncompliant with cpap; will do trial of bipap while inpatient. Hypertension- continue on amlodipine, meotprolol, losartan, Aldactone Tobacco use disorder- current use of tobacco; smoking cessation advised. DVT lovenox Bid Full code Time spent evaluating patient, direct bedside care, chart review, placing orders, interpretation of diagnostic studies, discussion with consultants, patient, and family members, as well as other required patient management activities is 75 minutes please note the above document was generated using voice recognition software. It may contain grammatical, syntax or spelling errors. 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 Last follow-up with cardiology in January 31, 2024; torsemide was increased to bid due to presence of peripheral edema. Patient presents to the hospital with complaints of chest pain which started around 3:30 AM; reports that it radiated down both arm and also reported shortness of breath with it. Patient's chest pain resolved after he is received aspirin and nitroglycerin tabs. In the ED, patient was found to be hypoxic to SpO2 of around 70% in room air. Chest x-ray showed cardiomegaly and pulmonary edema. CTA chest does not show PE; shows pulmonary edema as well. Allergies Allergy/AdvReac Type Severity Reaction Status Date / Time cefaclor [From Ceclor] Allergy Unknown childhood Verified 11/14/24 12:17 allergy ? Cephalosporins Allergy Unknown Unknown Verified 11/14/24 12:17 empagliflozin AdvReac Unknown put me Verified 11/14/24 12:17 [From Jardiance] into ketoacidosis? NSAIDS (Non-Steroidal AdvReac Unknown use with Verified 11/14/24 12:17 Anti-Inflamma caution : hx esophagus damage Home Medications Medication Instructions Recorded Confirmed Type dicyclomine 10 mg capsule 10 mg PO QID PRN Diarrhea 05/01/20 01/06/25 History atorvastatin 20 mg tablet 20 mg PO HS 30 days #30 tabs 09/17/24 01/06/25 Rx famotidine 20 mg tablet 20 mg PO HS 30 days #30 tabs 09/17/24 01/06/25 Rx losartan 50 mg tablet 50 mg PO BID 30 days #30 tabs 09/17/24 01/06/25 Rx omeprazole 40 mg capsule,delayed 40 mg PO DAILYBB 30 days #30 caps 09/17/24 01/06/25 Rx release terazosin 1 mg capsule 1 mg PO HS 30 days #30 caps 09/17/24 01/06/25 Rx metoprolol succinate 100 mg 100 mg PO BID 09/30/24 01/06/25 History tablet,extended release 24 hr haloperidol 1 mg tablet 1 mg PO QAM PRN gastroparesis 10/10/24 01/06/25 History symptoms metoprolol succinate 25 mg 25 mg PO BID #60 tabs 10/12/24 01/06/25 Rx tablet,extended release 24 hr aspirin 81 mg tablet,delayed 81 mg PO QAM 12/21/24 01/06/25 History release metformin 500 mg tablet,extended 500 mg PO QAM 12/21/24 01/06/25 History release 24 hr spironolactone 25 mg tablet 50 mg PO DAILY 12/21/24 01/06/25 History torsemide 20 mg tablet 20 mg PO QPM 12/21/24 01/06/25 History amlodipine 5 mg tablet (Norvasc) 5 mg PO QAM #30 tabs 12/25/24 01/06/25 Rx docusate sodium 100 mg capsule 100 mg PO BID PRN constipation #20 01/08/25 Rx caps isosorbide mononitrate 60 mg 60 mg PO QAM #30 tabs 01/08/25 Rx tablet,extended release 24 hr simethicone 40 mg/0.6 mL oral 80 mg (1.2 mL) PO Q6H PRN 01/08/25 Rx drops,suspension (Infants Gas abdominal distention #30 mL Relief) Past Med/Surg History Problem List (Updated 02/25/25 @ 08:25 by Ryan Gilbert MD) Acute on chronic diastolic heart failure Injury of back due to fall (Acute) Edema of left lower leg Hypoxia (Acute) Heart palpitations (Acute) Chest pain (Acute) AF (paroxysmal atrial fibrillation) (Acute) CAD (coronary artery disease) Bronchitis HTN (hypertension) (Acute) Chest pain (Acute) Abnormal nuclear cardiac imaging test Dyslipidemia, goal LDL below 70 Acute hyperglycemia (Acute) Abnormal stress test (Acute) Precordial chest pain (Acute) HTN, goal below 130/80 Diarrhea (Acute) Chest pain (Acute) Generalized pain (Acute) Hyperglycemia due to type 2 diabetes mellitus (Acute) Chest pain (Acute) Chest pain Atypical chest pain Noncompliance with CPAP treatment Hypomagnesemia (Acute) Elevated lactic acid level (Acute) PASHA (acute kidney injury) (Acute) Abdominal pain (Acute) Acute and chronic respiratory failure with hypercapnia Shortness of breath (Acute) 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 Garcia Morbid obesity (Acute) Chronic respiratory failure with hypercapnia Diabetic peripheral neuropathy associated with type 2 diabetes mellitus Loss of protective sensation of skin of foot Epigastric abdominal pain Encounter for pre-operative examination Colon polyp Medical History Chronic diastolic heart failure Volume overload Arthritis Low magnesium level History of RSV infection & flu a few months ago. Tachycardia chronic high heart rate - unknown etiology - a few months ago increased dose of metoprolol. Rhinovirus dx May 23 [facility] & another illness dx - ? name of /antibiotic and inhalers for. feeling better: only symptom : sore throat. COPD (chronic obstructive pulmonary disease) ? dx of Peripheral neuropathy Diabetes mellitus, type 2 Hypertension Tobacco use Restrictive lung disease Elevated liver function tests History of DVT (deep vein thrombosis) "years ago">no known cause Tussive syncope "occurred only one time, no recent issues" Esophagitis Osteoarthritis Hx of pancreatitis resolved GERD (gastroesophageal reflux disease) Cardiac murmur A CHILD Erectile dysfunction MRSA (methicillin resistant Staphylococcus aureus) carrier over 2 yrs ago>"not sure where it was" Intellectual disability Obstructive sleep apnea cpap Obesity IBS (irritable bowel syndrome) History of ventricular tachycardia "nonsustained" Surgical History History of appendectomy 02/10/2023 History of reduction of nasal fracture 09/25/21-Dr. Garcia Status post incision and drainage LLE History of shoulder surgery right-2019 H/O foot surgery LEFT-2018 History of arthroscopy LEFT [id number] History of esophagogastroduodenoscopy (EGD) History of colonoscopy with most recent attempt: failed prep. Told would need a 2 day prep prior to colonoscopy in Sep 2023. History of tooth extraction History of tonsillectomy and adenoidectomy 1979 Family History Brother Family history of diabetes mellitus Environmental allergies Asthma Mother Family history of diabetes mellitus Hypertension Environmental allergies Father Family history of diabetes mellitus Hypertension Heart disease Grandfather (Paternal) Lung cancer smoker Aunt Bleeding disorder Other No family history of adverse response to anesthesia Social History Smoking Status: Current every day smoker Tobacco Type: Cigarettes Age Started Using Tobacco: 14; Cigarettes Per Day: 20; Second Hand Exposure: No; Do You Dip or Chew Tobacco: No; Hx Alcohol Use: Yes Alcohol type: beer Alcohol Intake Frequency: Monthly or Less Alcohol Intake Frequency Comment: seldom, a couple times per year if that per pt Hx Substance Use: No Preferred Language: Sudanese Communication Ability: Effective Bucket Pusher Required: No Beliefs That Will Affect Care: None marital status: / marital status details: single at this time Current Living Situation: Family Current Living Situation Comment: lives with family and stays with his girlfriend. 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 Other Information That Helps Us Care for You: No other: girlfriend able to assist with dressing changes and care as needed Feels Safe at Home: Yes Safety Concerns: Feels Safe At This Time Diet: diabetic during the past year weight has: remained stable Assistive Devices: Prosthesis and Wheelchair Review of Systems Review of Systems: All systems reviewed & are unremarkable except as noted in Subjective Physical Exam Physical Exam: On physical examination; Constitutional: Sleepy; awakable by voice Respiratory: Bilateral basilar crackles present Cardiovascular: RRR, no murmur, no edema Vessels: no JVD or carotid bruit Abdomen: normal bowel sounds, soft, nontender, no hepatosplenomegaly Musculoskeletal: left BKA, 2 + pitting edema Skin: no rashes, warm and dry normal turgor Neurologic: PERRL, EOMI, accommodation nl, no face palsy, no dysarthria CN's II- XI intact bilaterally and moves all extremities Results & Data Results & Data Vital Signs (Past 12 Hours) Vital Signs Temp Pulse Pulse Resp BP BP Pulse Ox 02/25/25 08:17 87 15 98 02/25/25 08:00 89 20 175/98 H 98 02/25/25 07:42 68 L 02/25/25 07:39 88 23 63 L 02/25/25 07:25 98 02/25/25 07:15 98 02/25/25 07:00 87 19 129/101 H 99 02/25/25 06:34 85 19 129/101 H 99 02/25/25 05:34 84 20 90 02/25/25 05:02 95 02/25/25 05:02 36.6 C 87 17 131/95 95 02/25/25 04:57 02/25/25 04:50 88 02/25/25 04:34 36.6 C 86 16 144/58 H 96 O2 Del Method O2 Flow Rate FiO2 02/25/25 08:17 40 02/25/25 08:00 Non-rebreather 15 02/25/25 07:42 Oxymask, Non-rebreather 8 02/25/25 07:39 Oxymask 8 02/25/25 07:25 Oxymask 10 02/25/25 07:15 Oxymask, Non-rebreather 15 02/25/25 07:00 Non-rebreather 15 02/25/25 06:34 Non-rebreather 15 02/25/25 05:34 Room Air 02/25/25 05:02 Nasal Cannula 4 02/25/25 05:02 Nasal Cannula 4 02/25/25 04:57 Nasal Cannula 4 02/25/25 04:50 02/25/25 04:34 Nasal Cannula (1) CAD (coronary artery disease) Associated angina: without angina Coronary Disease-Associated Artery/Lesion type: [place] artery [place] vs. transplanted heart: [place] heart Qualified [place] e(s): I25.10 - Atherosclerotic heart disease of [place] coronary artery without angina pectoris
[2025-02-25] MEDS ORDERED: LANTUS PER UNIT CHARGE SQ SCH (09:00)
[2025-02-25] MEDS: INSULIN ASPART PER UNIT CHARGE SC STA (10:14)
[2025-02-25] MEDS: LANTUS PER UNIT CHARGE SQ STA (10:14)
[2025-02-25] MEDS: FUROSEMIDE 40 MG/4 ML VIAL IV ONE ×2 (10:14→10:15)
[2025-02-25] MEDS ORDERED: DOCUSATE SODIUM 100 MG CAP PO PRN (12:05)
[2025-02-25] MEDS ORDERED: SIMETHICONE 80 MG CHEW PO PRN (12:30)
--- NOTE | 2025-02-25 13:28 | Pharmacy Report ---
Pharmacy Glycemic Short Note 2 - Date of Service February 25, 2025 - Glycemic Short BSG Results (Last 24 hours): 02/25/25 02/25/25 05:34 10:00 Glucose 404 H* POC Glucose 370 H* OUTPATIENT ANTIDIABETIC REGIMEN: * Omnipod insulin pump- dosing per last DM visit, December 2024: * Basal rate: 2.8 units/hr * Carb ratio: 3 * Sensitivity factor: 9 * Metformin 500 mg ER PO qAM A1c = 10.9% (12/23/24) ASSESSMENT: * Bry is T2DM that is known to the pharmacy glycemic management team from previous admissions. 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 * Pharmacy consulted for transition to SQ basal + bolus insulin with severe hyperglycemia. hand chain maker confirms that insulin pump was removed in ED. * Will base insulin doses on home usage as well as past admission data PLAN FOR INPATIENT GLYCEMIC CONTROL: * Hold outpatient oral diabetes medications * Basal insulin * Lantus 70 units SC qAM x 1 * Reassess further basal based on trend * Bolus insulin * NovoLog per scale ACHS or Q6hrs while NPO * Goal Range: Low 110 mg/dL - High 150 mg/dL * Correction Factor: 10 mg/dL/unit * Nutritional / Prandial insulin per carb ratio of 1 unit per 4 grams CHO consumed
[2025-02-25] MEDS: ENOXAPARIN INJ 40 MG/0.4 ML SYR SQ SCH (14:02)
[2025-02-25] MEDS: FUROSEMIDE 40 MG/4 ML VIAL IV SCH (14:02)
[2025-02-25] MEDS: ISOSORBIDE MONO EXTENDED REL 60 MG TABCR PO SCH (14:02)
[2025-02-25] MEDS: METOPROLOL SUCC 50MG EXT REL TAB PO SCH ×2 (14:03→20:15)
[2025-02-25] MEDS: LOSARTAN POTASSIUM 50 MG TAB PO SCH (14:03)
[2025-02-25] MEDS: SPIRONOLACTONE 25 MG TAB PO SCH (14:04)
[2025-02-25] MEDS: METOPROLOL SUCC 25MG EXT REL TAB PO SCH (14:04)
[2025-02-25] MEDS: amLODIPine BESYLATE 5 MG TAB PO SCH (14:05)
[2025-02-25] MEDS: ASPIRIN 81 MG ECTAB PO SCH (14:05)
[2025-02-25] MEDS: DICYCLOMINE HCL 10 MG CAP PO PRN (14:05)
--- NOTE | 2025-02-25 14:38 | Cardiology Consultation ---
Date of Consultation February 25, 2025 Assessment & Plan (1) Chest pain at rest: (2) Acute on chronic diastolic heart failure: (3) ASCVD (arteriosclerotic cardiovascular disease): (4) HTN (hypertension): (5) Hypertensive heart disease: (6) Dyslipidemia, goal LDL below 70: Plan Atypical chest pain. Recent of (October 12, 2024) diagnostic cardiac catheterization with 100% chronic total occlusion of the first diagonal branch with otherwise mild to moderate nonobstructive coronary artery disease. Patient in no acute distress. EKG reportedly without acute change. High-sensitivity troponin now negative x 3. CT imaging of the chest with no evidence of PE or pulmonary disease. General measures advised. Patient reassured. Continue medical management with aspirin, statin, beta-ryan, ARB, amlodipine, and isosorbide. Acute decompensated diastolic congestive heart failure. Examination with mild volume overload only. Agree with IV furosemide as prescribed. Reassess ongoing need in the morning of February 26, 2025. Patient concern for atrial fibrillation, concern exacerbated after seeing a commercial with [employer]. - No atrial fibrillation observed thus far, including recent 7-day ambulatory EKG monitoring, though patient is at increased risk as discussed. - Increase metoprolol succinate to 150 mg twice per day for additional heart rate and blood pressure control. Hypertension. Patient is currently on 7 antihypertensive agents. Blood pressures elevated throughout, improving. Patient notes compliance with home medications both in the morning and night. Increase metoprolol as above. There is room to increase terazosin if/when needed. Nonpharmacologic treatment of hypertension discussed. Dyslipidemia. LDL cholesterol goal less than 70 mg/dL. LDL cholesterol 52 mg/dL on 10/12/2024. Continue atorvastatin. Untreated sleep apnea - Suspect this is a major contributing factor to symptoms on presentation. - Recommend reevaluation and treatment Supervising Physician Co-Signing Physician Notes Attending attestation: Case reviewed with the advanced practitioner. I have personally performed a history and physical examination on the patient. I have reviewed the advanced practitioner's documentation on the date of service referenced in note, and I agree with, and take responsibility for the plan of care. Symptoms are atypical for angina. I reviewed patient's coronary angiography films from September,, no substrate for angina noted. Patient has had several hospital evaluations for chest discomfort. No atrial fibrillation or significant arrhythmia noted on telemetry. High sensitive troponin once again within normal limits x 3 this admission. Increase metoprolol as noted above for treatment of subjective palpitations Only EKG I could find in the chart was the prehospital mattress finisher EKG. A repeat is in the process of being performed by the patient's nurse and this will be reviewed.As long as the findings are stable, no further cardiac testing recommended/planned. Eugenio Salvador DO History of Present Illness Reason for Consultation: Chest pain, history of moderate coronary artery disease Requesting Physician: Dr. Ryan Gilbert MD Attending Physician: Dr. Ryan Gilbert MD History of Present Illness Bry Akhtar Jr. is a 49-year-old male who awoke this morning around 3 AM with substernal chest discomfort, shortness of breath and palpitations. Patient chronically noncompliant with PAP therapy at home, patient hypoxic on presentation (initially 70% on room air). Chest x-ray was interpreted by the radiologist as revealing a new airspace open furcation in right lung lower zone, infrahilar region, unchanged perihilar congestion. CT was negative for pulmonary embolism or pulmonary disease. No EKG is available for review in the electronic medical record or [facility] however EKG documented in ER notes revealed sinus rhythm at [address] segment elevation or signs of ischemia. Despite chest pain for the last 12 hours high-sensitivity troponin is remains negative 12.0 pg/mL at 05:34 -> 11.9 pg/mL at 08:29, and and 12.6 pg/mL at 13:53. Patient notes chest pain is chronic and stable. He notes compliance with medications both morning and night. His main concern is tachypalpitations with movement. He remains highly concerned regarding the possibility of atrial fibrillation. Recent 7-day ambulatory EKG monitoring in December 2024 showed no evidence of atrial fibrillation, revealing sinus is a predominant rhythm with an average heart rate of 97 bpm. IV furosemide 40 mg twice per day prescribed along with BiPAP therapy on admission. Problem list Chronic diastolic congestive heart failure, HFpEF Hypertension, hypertensive heart disease, history of hypertensive urgency Coronary artery disease - diagnostic cardiac catheterization (following abnormal nuclear stress test) on October 12, 2024 with an apparent chronic total occlusion of the diagonal branch with otherwise mild nonobstructive coronary artery disease. Dyslipidemia Type 2 diabetes mellitus Gastroparesis Neuropathy Charcot foot Status post below-knee amputation on the left Gastroparesis IBS GERD/esophagitis History of pancreatitis Chronic anemia Obstructive sleep apnea, untreated History of DVT/PE Nonalcoholic fatty liver disease Morbid obesity Intellectual disability History of tobacco use COPD Allergies Allergy/AdvReac Type Severity Reaction Status Date / Time cefaclor [From Ceclor] Allergy Unknown childhood Verified 11/14/24 12:17 allergy ? Cephalosporins Allergy Unknown Unknown Verified 11/14/24 12:17 empagliflozin AdvReac Unknown put me Verified 11/14/24 12:17 [From Jardiance] into ketoacidosis? NSAIDS (Non-Steroidal AdvReac Unknown use with Verified 11/14/24 12:17 Anti-Inflamma caution : hx esophagus damage Home Medications Medication Instructions Recorded Confirmed Type dicyclomine 10 mg capsule 10 mg PO QID PRN Diarrhea 05/01/20 01/06/25 History atorvastatin 20 mg tablet 20 mg PO HS 30 days #30 tabs 09/17/24 01/06/25 Rx famotidine 20 mg tablet 20 mg PO HS 30 days #30 tabs 09/17/24 01/06/25 Rx losartan 50 mg tablet 50 mg PO BID 30 days #30 tabs 09/17/24 01/06/25 Rx omeprazole 40 mg capsule,delayed 40 mg PO DAILYBB 30 days #30 caps 09/17/24 01/06/25 Rx release terazosin 1 mg capsule 1 mg PO HS 30 days #30 caps 09/17/24 01/06/25 Rx metoprolol succinate 100 mg 100 mg PO BID 09/30/24 01/06/25 History tablet,extended release 24 hr haloperidol 1 mg tablet 1 mg PO QAM PRN gastroparesis 10/10/24 01/06/25 History symptoms metoprolol succinate 25 mg 25 mg PO BID #60 tabs 10/12/24 01/06/25 Rx tablet,extended release 24 hr aspirin 81 mg tablet,delayed 81 mg PO QAM 12/21/24 01/06/25 History release metformin 500 mg tablet,extended 500 mg PO QAM 12/21/24 01/06/25 History release 24 hr spironolactone 25 mg tablet 50 mg PO DAILY 12/21/24 01/06/25 History torsemide 20 mg tablet 20 mg PO QPM 12/21/24 01/06/25 History amlodipine 5 mg tablet (Norvasc) 5 mg PO QAM #30 tabs 12/25/24 01/06/25 Rx docusate sodium 100 mg capsule 100 mg PO BID PRN constipation #20 01/08/25 Rx caps isosorbide mononitrate 60 mg 60 mg PO QAM #30 tabs 01/08/25 Rx tablet,extended release 24 hr simethicone 40 mg/0.6 mL oral 80 mg (1.2 mL) PO Q6H PRN 01/08/25 Rx drops,suspension (Infants Gas abdominal distention #30 mL Relief) Patient History Medical History Chronic diastolic heart failure Volume overload Arthritis Low magnesium level History of RSV infection & flu a few months ago. Tachycardia chronic high heart rate - unknown etiology - a few months ago increased dose of metoprolol. Rhinovirus dx May 23 [facility] & another illness dx - ? name of /antibiotic and inhalers for. feeling better: only symptom : sore throat. COPD (chronic obstructive pulmonary disease) ? dx of Peripheral neuropathy Diabetes mellitus, type 2 Hypertension Tobacco use Restrictive lung disease Elevated liver function tests History of DVT (deep vein thrombosis) "years ago">no known cause Tussive syncope "occurred only one time, no recent issues" Esophagitis Osteoarthritis Hx of pancreatitis resolved GERD (gastroesophageal reflux disease) Cardiac murmur A CHILD Erectile dysfunction MRSA (methicillin resistant Staphylococcus aureus) carrier over 2 yrs ago>"not sure where it was" Intellectual disability Obstructive sleep apnea cpap Obesity IBS (irritable bowel syndrome) History of ventricular tachycardia "nonsustained" Surgical History History of appendectomy 02/10/2023 History of reduction of nasal fracture 09/25/21-Dr. Garcia Status post incision and drainage LLE History of shoulder surgery right-2019 H/O foot surgery LEFT-2018 History of arthroscopy LEFT KNEE-1987 History of esophagogastroduodenoscopy (EGD) History of colonoscopy with most recent attempt: failed prep. Told would need a 2 day prep prior to colonoscopy in Sep 2023. History of tooth extraction History of tonsillectomy and adenoidectomy 1979 Family History Brother Family history of diabetes mellitus Environmental allergies Asthma Mother Family history of diabetes mellitus Hypertension Environmental allergies Father Family history of diabetes mellitus Hypertension Heart disease Grandfather (Paternal) Lung cancer smoker Aunt Bleeding disorder Other No family history of adverse response to anesthesia Social History Smoking Status: Current every day smoker Tobacco Type: Cigarettes Age Started Using Tobacco: 14; Cigarettes Per Day: 20; Second Hand Exposure: No; Do You Dip or Chew Tobacco: No; Hx Alcohol Use: Yes Alcohol type: beer Alcohol Intake Frequency: Monthly or Less Alcohol Intake Frequency Comment: seldom, a couple times per year if that per pt Hx Substance Use: No Preferred Language: Occitan Communication Ability: Effective Cutting Machine Fixer Required: No Beliefs That Will Affect Care: None marital status: / marital status details: single at this time Current Living Situation: Family Current Living Situation Comment: lives with family and stays with his girlfriend. 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 BiPAP therapy removed with patient answering questions appropriately, without neuro deficit. General: NAD. HENT: Normocephalic. Atraumatic Neck: Neck veins not appreciated Heart: Distant heart sounds, 86 bpm, regular. Lungs: Clear to auscultation anteriorly. Abdomen: +BS. Soft. Nontender. No masses or organomegaly. Extremities: Trace to 1+ pretibial edema on the right. Below-knee amputation on the left. Limited neurological examination is without focal deficits. Results & Data Vital Signs (Past 12 Hours) Vital Signs Temp Pulse Pulse Resp BP BP Pulse Ox 02/25/25 13:41 90 20 93 02/25/25 13:03 37.2 C 86 20 152/85 H 97 02/25/25 12:40 02/25/25 12:05 87 02/25/25 12:00 37.2 C 85 15 152/85 H 97 02/25/25 12:00 02/25/25 11:07 86 19 185/90 H 97 02/25/25 10:19 86 19 185/90 H 97 02/25/25 10:00 86 12 172/110 H 95 02/25/25 09:00 93 H 15 209/106 H 90 02/25/25 08:59 88 02/25/25 08:17 87 15 98 02/25/25 08:00 91 H 21 175/98 H 02/25/25 08:00 89 20 175/98 H 98 02/25/25 07:42 68 L 02/25/25 07:39 88 23 63 L 02/25/25 07:25 98 02/25/25 07:15 98 02/25/25 07:00 87 19 129/101 H 99 02/25/25 06:34 85 19 129/101 H 99 02/25/25 05:34 84 20 90 02/25/25 05:02 95 02/25/25 05:02 36.6 C 87 17 131/95 95 02/25/25 04:57 02/25/25 04:50 88 02/25/25 04:34 36.6 C 86 16 144/58 H 96 Pulse Ox O2 Del Method O2 Del Method O2 Flow Rate FiO2 02/25/25 13:41 30 02/25/25 13:03 CPAP 12 40 02/25/25 12:40 97 CPAP 02/25/25 12:05 02/25/25 12:00 CPAP 40 02/25/25 12:00 CPAP 40 02/25/25 11:07 BiPAP 12 40 02/25/25 10:19 BiPAP 02/25/25 10:00 BiPAP 02/25/25 09:00 02/25/25 08:59 02/25/25 08:17 40 02/25/25 08:00 02/25/25 08:00 Non-rebreather 15 02/25/25 07:42 Oxymask, Non-rebreather 8 02/25/25 07:39 Oxymask 8 02/25/25 07:25 Oxymask 10 02/25/25 07:15 Oxymask, Non-rebreather 15 02/25/25 07:00 Non-rebreather 15 02/25/25 06:34 Non-rebreather 15 02/25/25 05:34 Room Air 02/25/25 05:02 Nasal Cannula 4 02/25/25 05:02 Nasal Cannula 4 02/25/25 04:57 Nasal Cannula 4 02/25/25 04:50 02/25/25 04:34 Nasal Cannula Laboratory Results Cardiac Enzymes 02/25/25 02/25/25 02/25/25 Range/Units 05:34 08:29 13:53 AST 14 (13-39) U/L Troponin I High Sens 12.0 11.9 12.6 (0-20) pg/ml CBC 02/25/25 Range/Units 05:34 WBC 9.03 (4.8-10.8) K/ul RBC 4.93 (4.70-6.10) M/uL Hgb 12.2 L (14.0-18.0) g/dl Hct 41.1 L (42.0-52.0) % Plt Count 268 (130-400) K/uL Neut # (Auto) 5.94 (1.40-6.50) K/uL Lymph # (Auto) 1.72 (1.20-3.40) K/uL [place] # (Auto) 0.86 H (0.11-0.59) K/uL Eos # (Auto) 0.31 (0.00-0.50) K/uL Baso # (Auto) 0.08 (0.00-0.20) K/uL Comprehensive Metabolic Panel 02/25/25 Range/Units 05:34 Sodium 137 (136-145) mmol/L Potassium 4.6 (3.5-5.1) mmol/L Chloride 97 L (98-107) mmol/L Carbon Dioxide 37 H (21-32) mmol/L BUN 29 H (6-23) mg/dl Creatinine 1.23 (0.6-1.4) mg/dl Glucose 404 H* (70-99(Fasting)) mg/dl Calcium 9.3 (8.6-10.3) mg/dl AST 14 (13-39) U/L ALT 19 (7-52) U/L Alkaline Phosphatase 76 (34-104) U/L Total Protein 7.2 (6.0-8.3) gm/dl Albumin 3.7 (3.4-5.0) gm/dl Intake and Output 02/24/25 02/25/25 02/25/25 22:59 06:59 14:59 Output Total 1200 / 1200 Balance -1200 / -1200 Output: Urine 1200 / 1200 Other: Weight 171.8 kg 158.5 kg Weight Measurement Method Built in [facility] Built in [facility] Patient Weight 02/26/25 06:59 Weight 158.5 kg Diagnostic Findings October 12, 2024 Coronary angiography findings ([facility], Dr. Rodarte) RLL-fjysu-rhwzrrk vessel trifurcating into LAD, circumflex, and ramus. It is short in length and has no disease. GJO-xjces-vyntvwc and transapical. Proximal and mid vessel have diffuse calcified up to 50% stenosis. Distally the vessel has no significant disease. There is a late filling diagonal which appears to be 100% occluded at the ostium. Small caliber but long. KJu-ssuuu-tnlwamc and nondominant. Travels in the AV groove giving 2 small obtuse marginal branches followed by a large branching OM 3. This vessel has proximal to 30 to 40% stenosis. Circumflex then provides a posterolateral branch which has 20 to 30% stenosis. The mid AV groove circumflex has 30 to 40% stenosis. Ramus-medium caliber with mild less than 30% stenosis. KEF-tkqhl-eappbyh and dominant. Bifurcates distally into the PDA and posterolateral branches. There is scattered mild plaques of less than 20% in the RCA and its branches. 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 Otherwise there is mild nonocclusive coronary disease in the remainder of the coronaries. September 16, 2024 TTE: LVEF 55 to 60%. Mild concentric LVH. Grade 1 diastolic dysfunction. Nondilated cardiac chambers. No significant valvular pathology. December 23, 2024 TTE: Limited study. EF 55 to 60%. Normal wall motion. (4) HTN (hypertension) Hypertension type: unspecified Qualified Code(s): I10 - Essential (primary) hypertension
[2025-02-25] MEDS: INSULIN ASPART PER UNIT CHARGE SC SCH (14:42)
[2025-02-25] MEDS: INSULIN HUMAN REGULAR PER UNIT 10 UNITS in SYRINGE 9.9 ML IV ONE (14:48)
--- NOTE | 2025-02-25 16:41 | CT Scan Report ---
EXAMINATION: CT of the abdomen and pelvis performed after the administration of IV contrast TECHNIQUE: Helical CT images from the lung bases through the symphysis pubis were obtained with contrast. Coronal and sagittal reformatted images were generated at a workstation for further assessment. Dose reduction techniques were achieved by using automatic exposure control and/or adjustment of mA and/or kV according to patient size and/or use of iterative reconstruction technique. COMPARISON: 09/30/2024 HISTORY: Abdominal pain FINDINGS: Lower chest: No consolidation. No pleural effusion or pneumothorax. Liver: No suspicious liver lesions. Portal veins appear patent. Gallbladder: No gallstones. No evidence of acute cholecystitis. Spleen: Normal size. Pancreas: No suspicious pancreatic lesions. The pancreatic duct is not dilated. Adrenal glands: No adrenal nodules. Kidneys: No hydronephrosis or obstructing renal stones. Bladder / Pelvic organs: There is a Shearer catheter in place decompressing the urinary bladder. The bladder wall appears thickened. Bowel: No bowel obstruction. No abnormal bowel wall thickening. The appendix is collapsed at. Lymph nodes: No retroperitoneal, mesenteric, or pelvic lymphadenopathy. Peritoneum / Retroperitoneum: No free fluid or air within the abdomen. Vessels: No infrarenal aortic aneurysm. Bones and soft tissues: No suspicious lesion in the bones. IMPRESSION: Urinary bladder wall thickening may be due to underdistention, with underlying cystitis not excluded. A Shearer catheter is in place decompressing the urinary bladder. No other acute findings. Electronically signed by Nba Flood 02-25-2025 4:41 PM
[2025-02-25] MEDS: HYDROmorphone INJ 0.5 MG/0.5 ML SYR IV STA (17:20)
[2025-02-25] MEDS: ATORVASTATIN 20 MG TAB PO SCH (20:14)
[2025-02-25] MEDS: TERAZOSIN HCL 1 MG CAP PO SCH (20:14)
[2025-02-25] MEDS: FAMOTIDINE 20 MG TAB PO SCH (20:15)
[2025-02-25] MEDS: ACETAMINOPHEN 325 MG TAB PO PRN (20:59)
[2025-02-25 22:08] LABS: Appearance Urine Clear (Clear); Bacteria Urine Automated None Seen (None Seen); Bilirubin Urine Negative (Negative); Blood Urine Negative (Negative); Cast Urine Automated 0-2 /lpf (0-2); Color Urine Yellow; Epithelial Cell Urine Auto 0-2 /hpf (0-2); Glucose Urine UA 3+ (Negative); Ketones Urine Negative (Negative); Leukocyte Esterase Urine Negative (Negative); Nitrite Urine Negative (Negative); Protein Urine 2+ (Negative); RBC Urine Automated 0-2 /hpf (0-2); Specific Gravity Urine 1.023 (1.000-1.030); Urobilinogen Urine Negative (Negative); WBC Urine Automated 0-5 /hpf (0-5); pH Urine 5.5 (4.5-7.5)
[2025-02-26] MEDS ORDERED: INSULIN ASPART PER UNIT CHARGE SC SCH
[2025-02-26] MEDS: PANTOprazole 40 MG TAB PO SCH (05:30)
[2025-02-26 06:37] LABS: Basophils # (auto) 0.05 K/uL (0.00-0.20); Basophils % (auto) 0.6 %; Eosinophils # (auto) 0.35 K/uL (0.00-0.50); Eosinophils % (auto) 4.4 %; Hematocrit (blood only) 40.2 % (42.0-52.0); Hemoglobin 12.1 g/dl (14.0-18.0); Immature Granulocytes # (auto) 0.09 K/uL (0.01-0.20); Immature Granulocytes % (auto) 1.1 %; Lymphocytes # (auto) 2.09 K/uL (1.20-3.40); Lymphocytes % (auto) 26.5 %; Mean Corpuscular Hgb Conc 30.1 g/dL (32.0-36.0); Mean Corpuscular Volume 83.1 fL (80.0-100.0); Mean Platelet Volume 9.8 fL (9.4-12.4); Monocytes # (auto) 0.89 K/uL (0.11-0.59); Monocytes % (auto) 11.3 %; Neutrophils # (auto) 4.41 K/uL (1.40-6.50); Neutrophils % (auto) 56.1 %; Platelet Count 258 K/uL (130-400); RDW Coefficient of Variation 14.6 % (11.5-14.5); RDW Standard Deviation 44.5 fL (36.4-46.3); Red Blood Count 4.84 M/uL (4.70-6.10); White Blood Count 7.88 K/ul (4.8-10.8)
[2025-02-26 07:05] LABS: BUN Creatinine Ratio 23.9 (10-20); Calcium 9.1 mg/dl (8.6-10.3); Creatinine Clr Calc Pharmacy 88.8 ml/min; Potassium 4.4 mmol/L (3.5-5.1)
[2025-02-26] MEDS: LANTUS PER UNIT CHARGE SC SCH (08:40)
[2025-02-26] MEDS: TORSEMIDE 20 MG TAB PO SCH (09:46)
[2025-02-26] MEDS ORDERED: INSULIN HUMAN REGULAR PER UNIT 10 UNITS in SYRINGE 9.9 ML IV ONE (11:30)
--- NOTE | 2025-02-26 12:38 | Electrocardiogram Report ---
Test Reason : Blood Pressure : */* mmHG Vent. Rate : 88 BPM Atrial Rate : 88 BPM P-R Int : 148 ms QRS Dur : 96 ms QT Int : 368 ms P-R-T Axes : 25 0 51 degrees QTcB Int : 445 ms Normal sinus rhythm Incomplete right bundle branch block Borderline ECG When compared with ECG of 07-Jan-2025 21:02, Incomplete right bundle branch block is now Present Confirmed by Eugenio Rodarte ([id number]) on 02/26/2025 12:38:08 PM Referred By: NO PCP Confirmed By: Eugenio Rodarte
--- NOTE | 2025-02-26 13:01 | Hospitalist Progress Note ---
Date of Service February 26, 2025 Assessment & Plan (1) CAD (coronary artery disease): (2) Noncompliance with CPAP treatment: (3) Acute on chronic diastolic heart failure: Plan Assessment/plan Acute hypoxic respiratory failure Acute on chronic diastolic heart failure Patient presents to the hospital with chest pain with radiation to both arms; found to be hypoxic to 70% in room air Chest x-ray and CTA chest consistent with pulmonary edema On torsemide twice daily; questionable compliance to spironolactone Last echocardiogram in December 2024 showed EF of 55 to 60% with grade 1 diastolic dysfunction. Patient was admitted to telemetry floor; was started on BiPAP with improvement in oxygenation. He was also diuresed with IV Lasix 40 mg twice a day. Creatinine up trended to 1.59; will switch back to home dose of torsemide 20 mg daily. Wean off oxygen as tolerated Chest pain History of CAD Last cardiac cath on September 2024 which 50% proximal LAD, 50% mid LAD, 100% diagonal branch vessel occlusion, 40% mid circumflex, 40% obtuse marginal vessel stenosis, normal right coronary artery High-sensitivity troponin troponin x 3 negative EKG reviewed by cardiology; no significant ST or T wave changes Monitor for recurrence of chest pain Continue aspirin, Lipitor, and imdur. Metoprolol dose increased to 150 mg twice daily Type 2 DM II A1C 10.2% 12/2024 glycemic pharmacy discontinue insulin pump on sc insulin while inpatient DAMION- noncompliant with cpap; will do trial of bipap while inpatient. Hypertension- continue on amlodipine, metoprolol, losartan, Aldactone Tobacco use disorder- current use of tobacco; smoking cessation advised. DVT lovenox Bid Full code Time spent evaluating patient, direct bedside care, chart review, placing orders, interpretation of diagnostic studies, discussion with consultants, patient, and family members, as well as other required patient management activities is 50 minutes please note the above document was generated using voice recognition software. It may contain grammatical, syntax or spelling errors. Any formal questions or concerns about the content, text or information contained within the body of this dictation should be directly addressed to the provider for clarification Admission and Anticipated Discharge Date Admission Date: February 25, 2025 Subjective Patient seen and examined at bedside. He is awake alert oriented x 3. Continues to report nonspecific chest pain and back pain. Vital signs are stable and he is requiring 2 L of oxygen by nasal cannula Review of Systems Review of Systems: All systems reviewed & are unremarkable except as noted in Subjective Physical Exam Physical Exam: On physical examination; Constitutional: Awake alert oriented x 3. Not in distress. Chest: Bilateral clear breath sound Cardiovascular: RRR, no murmur, no edema Vessels: no JVD or carotid bruit Abdomen: normal bowel sounds, soft, nontender, no hepatosplenomegaly Musculoskeletal: left BKA, 1 + pitting edema Skin: no rashes, warm and dry normal turgor Neurologic: PERRL, EOMI, accommodation nl, no face palsy, no dysarthria CN's II- XI intact bilaterally and moves all extremities Results & Data Results & Data Vital Signs (Past 12 Hours) Vital Signs Temp Pulse Pulse Resp BP Pulse Ox O2 Del Method 02/26/25 11:55 36.4 C L 82 20 120/72 92 Nasal Cannula 02/26/25 11:04 79 02/26/25 11:04 Nasal Cannula 02/26/25 08:02 36.4 C L 78 18 126/70 94 CPAP 02/26/25 07:23 76 18 95 02/26/25 03:29 36.8 C 68 17 112/65 96 BiPAP 02/26/25 03:08 20 02/26/25 02:48 87 21 94 02/26/25 01:53 84 O2 Flow Rate FiO2 02/26/25 11:55 3 02/26/25 11:04 02/26/25 11:04 4 02/26/25 08:02 40 02/26/25 07:23 40 02/26/25 03:29 02/26/25 03:08 40 02/26/25 02:48 40 02/26/25 01:53 (1) CAD (coronary artery disease) Associated angina: without angina Coronary Disease-Associated Artery/Lesion type: [place] artery [place] vs. transplanted heart: [place] heart Qualified Code(s): I25.10 - Atherosclerotic heart disease of [place] coronary artery without angina pectoris
--- NOTE | 2025-02-26 13:05 | Pharmacy Report ---
Pharmacy Glycemic Short Note 2 - Date of Service February 26, 2025 - Glycemic Short BSG Results (Last 24 hours): 02/25/25 02/25/25 02/25/25 14:08 14:10 16:19 Glucose POC Glucose 409 H* 348 H* 244 H 02/25/25 02/26/25 02/26/25 20:32 05:23 07:15 Glucose 212 H POC Glucose 120 H 236 H 02/26/25 02/26/25 11:14 11:16 Glucose POC Glucose 332 H* 313 H* OUTPATIENT ANTIDIABETIC REGIMEN: * Omnipod insulin pump- dosing per last DM visit, December 2024: * Basal rate: 2.8 units/hr * Carb ratio: 3 * Sensitivity factor: 9 * Metformin 500 mg ER PO qAM A1c = 10.9% (12/23/24) ASSESSMENT: 02/26/25: * Blood sugars labile over past 24 hours, ranging 120->300 mg/dL * Received 141 units of insulin (70 units of basal and 71 units of prandial/correctional bolus/IV insulin) * Hyperglycemic at lunch today, but confirmed with nurse that patient had uncovered late breakfast ~10 AM * Will hold off on aggressive changes at this time since not covered appropriately 02/25/25: * Bry is T2DM that is known to the pharmacy glycemic management team from previous admissions. 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 * Pharmacy consulted for transition to SQ basal + bolus insulin with severe hyperglycemia. rv service technician confirms that insulin pump was removed in ED. * Will base insulin doses on home usage as well as past admission data PLAN FOR INPATIENT GLYCEMIC CONTROL: * Hold outpatient oral diabetes medications * Basal insulin * Lantus 80 units SC qAM * Reassess in AM * Bolus insulin * NovoLog per scale ACHS or Q6hrs while NPO * Goal Range: Low 110 mg/dL - High 150 mg/dL * Correction Factor: 10 mg/dL/unit * Nutritional / Prandial insulin per carb ratio of 1 unit per 4 grams CHO consumed * Tighten at dinnertime if needed
[2025-02-26] MEDS: HYDROmorphone INJ 0.5 MG/0.5 ML SYR IV STA ×3 (15:05→22:29)
[2025-02-27 06:33] LABS: Basophils # (auto) 0.06 K/uL (0.00-0.20); Basophils % (auto) 0.7 %; Eosinophils # (auto) 0.35 K/uL (0.00-0.50); Eosinophils % (auto) 4.3 %; Hematocrit (blood only) 37.7 % (42.0-52.0); Hemoglobin 11.8 g/dl (14.0-18.0); Immature Granulocytes # (auto) 0.11 K/uL (0.01-0.20); Immature Granulocytes % (auto) 1.4 %; Lymphocytes # (auto) 1.44 K/uL (1.20-3.40); Lymphocytes % (auto) 17.8 %; Mean Corpuscular Hemoglobin 25.1 pg (25.0-34.0); Mean Corpuscular Hgb Conc 31.3 g/dL (32.0-36.0); Mean Corpuscular Volume 80.2 fL (80.0-100.0); Mean Platelet Volume 9.5 fL (9.4-12.4); Monocytes # (auto) 0.99 K/uL (0.11-0.59); Monocytes % (auto) 12.3 %; Neutrophils # (auto) 5.13 K/uL (1.40-6.50); Neutrophils % (auto) 63.5 %; Platelet Count 262 K/uL (130-400); RDW Coefficient of Variation 14.6 % (11.5-14.5); RDW Standard Deviation 42.5 fL (36.4-46.3); White Blood Count 8.08 K/ul (4.8-10.8)
[2025-02-27 06:50] LABS: BUN Creatinine Ratio 25.1 (10-20); Calcium 8.9 mg/dl (8.6-10.3); Creatinine Clr Calc Pharmacy 66.9 ml/min; Potassium 4.4 mmol/L (3.5-5.1)
[2025-02-27 06:57] LABS: Troponin I High Sensitivity 11.8 pg/ml (0-20)
[2025-02-27] MEDS: LANTUS PER UNIT CHARGE SC SCH (08:35)
[2025-02-27] MEDS ORDERED: LANTUS PER UNIT CHARGE SC SCH (09:00)
--- NOTE | 2025-02-27 09:41 | Nephrology Consultation ---
Date of Consultation February 27, 2025 Assessment & Plan (1) PASHA (acute kidney injury): Nonoliguric stage I bordering on stage II acute kidney injury, prerenal acute kidney injury is certainly possible though he may well prove to have ischemic ATN. Baseline creatinine 1.2 which is his where he was on admission. 5 L negative on the admission and also status post obligate exposure to IV contrast on presentation 48 hours ago with interval diuresis also obligate. -continue to hold diuretics -repeat UA and urine electrolytes ordered -daily basic metabolic panel -no indication for discussion of renal replacement therapy -strict intake and output to continue -ordered daily standing weights -no fluid limit currently and for now none indicated Care coordinated w/ Dr Gilbert re PASHA etiologies, mgt, orders placed via TText; we are in agreement (2) Acute on chronic diastolic heart failure: not likely to tolerate holding diuretics for long. hgb 11.8; no acute issue w/ anemia HTN has been well controlled past 24 hrs. >>if BP/volume an issues, suggest lasix 40 mg IV x 1 (3) Acute and chronic respiratory failure with hypercapnia: using bipap here -cont to encourage bipap use History of Present Illness Reason for Consultation: PASHA Requesting Physician: Dr Gilbert Attending Physician: Ryan Gilbert MD History of Present Illness 49 y/o M whom I'm asked to see for PASHA was admitted 02/25 for acute on chronic HFpEF and atypical chest pain, after presenting with pain radiating to both arms and satting 70% on room air. PMH includes mild/moderate nonobstructive CAD 09/2024, HFpEF, resistant HTN on 7 OP medications w/ h/o HTN urgency, DM2 w/ gastroparesis/neuropathy/Charcot foot, s/p L BKA, h/o DVT/PE, DAMION untreated, NAFLD, IBS, GERD, h/o pancreatitis Recent admissions here for HTN urgency attributed to nonadherence 12/2024, September 2024 with symptomatic CAD for medical management. His creatinine has a labile baseline but runs around 1.2, progressed from 1.0- 1.1 since fall 2023. He presented w/ creatinine 1.2, up to 2.1 today. He is 5.1L negative on the admission. Not doing standing weights, though he does them at home. Since arrival, he's had IV lasix 40 mg x 2 doses; then one 20 mg torsemide dose; losartan 50 mg x 3 doses, 2 doses spironolactone 50 mg, amlodipine 5 mg x 2 doses. All diuretics are currently on hold. he c/o significant R forearm pain that began abruptly last evening, does not radiate, denies trauma history. He used the BiPAP for 3/4 of the night per his report. Denies shortness of breath, coughing, wheezing, chest pain, palpitations. Denies lower extremity edema. No change in urine output; no dysuria or gross hematuria. No nausea vomiting diarrhea constipation abdominal pain. No fevers or chills. Allergies Allergy/AdvReac Type Severity Reaction Status Date / Time [facility] Allergy Unknown childhood Verified 11/14/24 12:17 allergy ? Cephalosporins Allergy Unknown Unknown Verified 11/14/24 12:17 empagliflozin AdvReac Unknown put me Verified 11/14/24 12:17 [From Jardiance] into ketoacidosis? NSAIDS (Non-Steroidal AdvReac Unknown use with Verified 11/14/24 12:17 Anti-Inflamma caution : hx esophagus damage Home Medications Medication Instructions Recorded Confirmed Type dicyclomine 10 mg capsule 10 mg PO QID PRN Diarrhea 05/01/20 01/06/25 History atorvastatin 20 mg tablet 20 mg PO HS 30 days #30 tabs 09/17/24 01/06/25 Rx famotidine 20 mg tablet 20 mg PO HS 30 days #30 tabs 09/17/24 01/06/25 Rx losartan 50 mg tablet 50 mg PO BID 30 days #30 tabs 09/17/24 01/06/25 Rx omeprazole 40 mg capsule,delayed 40 mg PO DAILYBB 30 days #30 caps 09/17/24 01/06/25 Rx release terazosin 1 mg capsule 1 mg PO HS 30 days #30 caps 09/17/24 01/06/25 Rx metoprolol succinate 100 mg 100 mg PO BID 09/30/24 01/06/25 History tablet,extended release 24 hr haloperidol 1 mg tablet 1 mg PO QAM PRN gastroparesis 10/10/24 01/06/25 History symptoms metoprolol succinate 25 mg 25 mg PO BID #60 tabs 10/12/24 01/06/25 Rx tablet,extended release 24 hr aspirin 81 mg tablet,delayed 81 mg PO QAM 12/21/24 01/06/25 History release metformin 500 mg tablet,extended 500 mg PO QAM 12/21/24 01/06/25 History release 24 hr spironolactone 25 mg tablet 50 mg PO DAILY 12/21/24 01/06/25 History torsemide 20 mg tablet 20 mg PO QPM 12/21/24 01/06/25 History amlodipine 5 mg tablet (Norvasc) 5 mg PO QAM #30 tabs 12/25/24 01/06/25 Rx docusate sodium 100 mg capsule 100 mg PO BID PRN constipation #20 01/08/25 Rx caps isosorbide mononitrate 60 mg 60 mg PO QAM #30 tabs 01/08/25 Rx tablet,extended release 24 hr simethicone 40 mg/0.6 mL oral 80 mg (1.2 mL) PO Q6H PRN 01/08/25 Rx drops,suspension (Infants Gas abdominal distention #30 mL Relief) Patient History Medical History Chronic diastolic heart failure Volume overload Arthritis Low magnesium level History of RSV infection & flu a few months ago. Tachycardia chronic high heart rate - unknown etiology - a few months ago increased dose of metoprolol. Rhinovirus dx May 23 [facility] & another illness dx - ? name of /antibiotic and inhalers for. feeling better: only symptom : sore throat. COPD (chronic obstructive pulmonary disease) ? dx of Peripheral neuropathy Diabetes mellitus, type 2 Hypertension Tobacco use Restrictive lung disease Elevated liver function tests History of DVT (deep vein thrombosis) "years ago">no known cause Tussive syncope "occurred only one time, no recent issues" Esophagitis Osteoarthritis Hx of pancreatitis resolved GERD (gastroesophageal reflux disease) Cardiac murmur A CHILD Erectile dysfunction MRSA (methicillin resistant Staphylococcus aureus) carrier over 2 yrs ago>"not sure where it was" Intellectual disability Obstructive sleep apnea cpap Obesity IBS (irritable bowel syndrome) History of ventricular tachycardia "nonsustained" Surgical History History of appendectomy 02/10/2023 History of reduction of nasal fracture 09/25/21-Dr. Garcia Status post incision and drainage LLE History of shoulder surgery right-2020 H/O foot surgery LEFT-2018 History of arthroscopy LEFT [id number] History of esophagogastroduodenoscopy (EGD) History of colonoscopy with most recent attempt: failed prep. Told would need a 2 day prep prior to colonoscopy in Sep 2023. History of tooth extraction History of tonsillectomy and adenoidectomy 1979 Family History Brother Family history of diabetes mellitus Environmental allergies Asthma Mother Family history of diabetes mellitus Hypertension Environmental allergies Father Family history of diabetes mellitus Hypertension Heart disease Grandfather (Paternal) Lung cancer smoker Aunt Bleeding disorder Other No family history of adverse response to anesthesia Social History Smoking Status: Current every day smoker Tobacco Type: Cigarettes Age Started Using Tobacco: 14; Cigarettes Per Day: 20; Second Hand Exposure: No; Do You Dip or Chew Tobacco: No; Hx Alcohol Use: Yes Alcohol type: beer Alcohol Intake Frequency: Monthly or Less Alcohol Intake Frequency Comment: seldom, a couple times per year if that per pt Hx Substance Use: No Preferred Language: Malawian Communication Ability: Effective Belt Sander Required: No Beliefs That Will Affect Care: None marital status: / marital status details: single at this time Current Living Situation: Family Current Living Situation Comment: lives with family and stays with his girlfriend. 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 Other Information That Helps Us Care for You: No other: girlfriend able to assist with dressing changes and care as needed Feels Safe at Home: Yes Safety Concerns: Feels Safe At This Time Diet: diabetic during the past year weight has: remained stable Assistive Devices: Wheelchair Review of Systems 2 Review of Systems: All systems reviewed & are unremarkable except as noted in HPI & below Physical Exam 2 Constitutional: well developed, well nourished and + morbidly obese; no acute distress Eyes: EOM intact bilaterally ENMT: Mouth: + dry oral mucous membranes and + edentulous Respiratory: normal respiratory effort Auscultation: + diminished lung sounds Cardiovascular: Rate/Rhythm: regular rate ( Heart tones distant) and regular rhythm Extremities: no edema Gastrointestinal (Abdomen): Inspection/Auscultation: normal bowel sounds P ercussion/Palpation: abdomen soft; abdomen nontender Musculoskeletal: Extremities: strength 5/5 throughout and + leg foreshortened ( left BKA) Skin: no rashes, warm and dry Neurologic: alvarado, fluent speech, no tremor Psychiatric: Orientation: alert and oriented x 3 Results & Data Vital Signs (Past 12 Hours) Vital Signs Temp Pulse Pulse Resp BP Pulse Ox O2 Del Method 02/27/25 07:35 36.7 C 94 H 20 139/77 95 Nasal Cannula 02/27/25 02:48 36.7 C 78 22 122/72 97 BiPAP 02/27/25 01:58 80 22 96 02/27/25 00:00 85 18 95 02/26/25 22:06 36.7 C 90 18 135/73 93 Nasal Cannula 02/26/25 21:32 88 O2 Flow Rate FiO2 02/27/25 07:35 5.5 02/27/25 02:48 02/27/25 01:58 5 02/27/25 00:00 40 02/26/25 22:06 3 02/26/25 21:32 Laboratory Results 02/27/25 05:48 02/27/25 05:[address] a/p w/ IV con 02/25 Urinary bladder wall thickening may be due to underdistention, with underlying cystitis not excluded. A Shearer catheter is in place decompressing the urinary bladder. No other acute findings. CTA Chest 02/25 no acute process
--- NOTE | 2025-02-27 11:43 | Hospitalist Progress Note ---
Date of Service February 27, 2025 Assessment & Plan (1) CAD (coronary artery disease): (2) Noncompliance with CPAP treatment: (3) Acute on chronic diastolic heart failure: Plan Assessment/plan Acute hypoxic respiratory failure Acute on chronic diastolic heart failure Patient presents to the hospital with chest pain with radiation to both arms; found to be hypoxic to 70% in room air Chest x-ray and CTA chest consistent with pulmonary edema On torsemide twice daily; questionable compliance to spironolactone Last echocardiogram in December 2024 showed EF of 55 to 60% with grade 1 diastolic dysfunction. Patient was admitted to telemetry floor; was started on BiPAP with improvement in oxygenation. He was also diuresed with IV Lasix 40 mg twice a day. Creatinine up trended to 2.11;hold diuretics and antihypertensives. Wean off oxygen as tolerated Acute kidney injury Patient's creatinine up trended to 2.11 from 1.23 on admission Suspect likely related with hypoxia and change in blood pressure Will hold antihypertensive and diuretics for the time being; continue on metoprolol. Monitor urine output Nephrology consulted for comanagement Chest pain History of CAD Last cardiac cath on September 2024 which 50% proximal LAD, 50% mid LAD, 100% diagonal branch vessel occlusion, 40% mid circumflex, 40% obtuse marginal vessel stenosis, normal right coronary artery High-sensitivity troponin troponin x 3 negative EKG reviewed by cardiology; no significant ST or T wave changes Monitor for recurrence of chest pain Continue aspirin, Lipitor. Metoprolol dose increased to 150 mg twice daily Type 2 DM II A1C 10.2% 12/2024 glycemic pharmacy discontinue insulin pump on sc insulin while inpatient DAMION- coninue on bipap while inpatient when sleeping. Hypertension- continue on amlodipine, metoprolol, losartan, Aldactone Tobacco use disorder- current use of tobacco; smoking cessation advised. DVT lovenox Bid Full code Dispositionpatient reports that he is weaker compared to his baseline and would like to go to rehab. PT OT ordered. Case management on board Time spent evaluating patient, direct bedside care, chart review, placing orders, interpretation of diagnostic studies, discussion with consultants, patient, and family members, as well as other required patient management activities is 50 minutes please note the above document was generated using voice recognition software. It may contain grammatical, syntax or spelling errors. Any formal questions or concerns about the content, text or information contained within the body of this dictation should be directly addressed to the provider for clarification Admission and Anticipated Discharge Date Admission Date: February 25, 2025 Subjective Patient seen and examined at bedside he is comfortable lying in the bed; denies any pain or discomfort at this time. Denies any shortness of breath; blood pressure stable and is saturating well at full liter of oxygen by nasal cannula. Review of Systems Review of Systems: All systems reviewed & are unremarkable except as noted in Subjective Physical Exam Physical Exam: On physical examination; Constitutional: Awake alert oriented x 3. Not in distress. Chest: Bilateral clear breath sound Cardiovascular: RRR, no murmur, no edema Vessels: no JVD or carotid bruit Abdomen: normal bowel sounds, soft, nontender, no hepatosplenomegaly Musculoskeletal: left BKA, no pitting edema Skin: no rashes, warm and dry normal turgor Neurologic: PERRL, EOMI, accommodation nl, no face palsy, no dysarthria CN's II- XI intact bilaterally and moves all extremities Results & Data Results & Data Vital Signs (Past 12 Hours) Vital Signs Temp Pulse Pulse Resp BP Pulse Ox Pulse Ox 02/27/25 11:05 36.8 C 82 20 135/69 95 02/27/25 10:12 02/27/25 08:00 95 02/27/25 07:35 36.7 C 94 H 20 139/77 95 02/27/25 07:00 82 02/27/25 02:48 36.7 C 78 22 122/72 97 02/27/25 01:58 80 22 96 02/27/25 00:00 85 18 95 O2 Del Method O2 Del Method O2 Flow Rate O2 Flow Rate FiO2 02/27/25 11:05 Nasal Cannula 4 02/27/25 10:12 Nasal Cannula 5 02/27/25 08:00 Nasal Cannula 5.5 02/27/25 07:35 Nasal Cannula 5.5 02/27/25 07:00 02/27/25 02:48 BiPAP 02/27/25 01:58 5 02/27/25 00:00 40 (1) CAD (coronary artery disease) Associated angina: without angina Coronary Disease-Associated Artery/Lesion type: [place] artery [place] vs. transplanted heart: [place] heart Qualified Code(s): I25.10 - Atherosclerotic heart disease of [place] coronary artery without angina pectoris
[2025-02-27] MEDS: LANTUS PER UNIT CHARGE SC ONE (11:47)
--- NOTE | 2025-02-27 15:14 | Pharmacy Report ---
Pharmacy Glycemic Short Note 2 - Date of Service February 27, 2025 - Glycemic Short BSG Results (Last 24 hours): 02/26/25 02/26/25 02/27/25 16:06 20:23 05:48 Glucose 269 H POC Glucose 229 H 137 H 02/27/25 02/27/25 07:32 11:03 Glucose POC Glucose 262 H 260 H OUTPATIENT ANTIDIABETIC REGIMEN: * Omnipod insulin pump- dosing per last DM visit, December 2024: * Basal rate: 2.8 units/hr * Carb ratio: 3 * Sensitivity factor: 9 * Metformin 500 mg ER PO qAM A1c = 10.9% (12/23/24) ASSESSMENT: 02/27/25: * Blood sugars elevated yesterday, ranging 132-313 mg/dL * Received 142 units of insulin (80 units of basal and 62 units of bolus) * Fasting blood sugar elevated again this morning so will increase basal * Blood sugar trend has been elevated during the day w/ significant improvement at HS * Of note, SCr continues to trend up (1.23 -> 1.59 -> 2.11 mg/dL), will need to monitor for possible insulin accumulation 02/26/25: * Blood sugars labile over past 24 hours, ranging 120->300 mg/dL * Received 141 units of insulin (70 units of basal and 71 units of prandial/correctional bolus/IV insulin) * Hyperglycemic at lunch today, but confirmed with nurse that patient had uncovered late breakfast ~10 AM * Will hold off on aggressive changes at this time since not covered appropriately 02/25/25: * Bry is T2DM that is known to the pharmacy glycemic management team from previous admissions. 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 * Pharmacy consulted for transition to SQ basal + bolus insulin with severe hyperglycemia. leisure travel agent confirms that insulin pump was removed in ED. * Will base insulin doses on home usage as well as past admission data PLAN FOR INPATIENT GLYCEMIC CONTROL: * Hold outpatient oral diabetes medications * Basal insulin * Lantus 80 units SC qAM * Lantus 20 units SC x 1 at lunchtime * Reassess in AM * Bolus insulin * NovoLog per scale ACHS or Q6hrs while NPO * Goal Range: Low 110 mg/dL - High 140 mg/dL at 0730,1130; 120-160 mg/dL at 1630,2100 * Correction Factor: 10 mg/dL/unit with breakfast and lunch, 12 mg/dL/unit with dinner and at HS * Nutritional / Prandial insulin per carb ratio of 1 unit per 3 grams CHO consumed at breakfast and lunch, 1 unit per 4 grams CHO consumed at dinner and HS
[2025-02-27 15:24] LABS: Appearance Urine Clear (Clear); Bacteria Urine Automated None Seen (None Seen); Bilirubin Urine Negative (Negative); Blood Urine 2+ (Negative); Cast Urine Automated 0-2 /lpf (0-2); Color Urine Yellow; Epithelial Cell Urine Auto 0-2 /hpf (0-2); Glucose Urine UA Trace (Negative); Ketones Urine Negative (Negative); Leukocyte Esterase Urine Negative (Negative); Nitrite Urine Negative (Negative); Protein Urine Trace (Negative); Specific Gravity Urine 1.012 (1.000-1.030); Urobilinogen Urine Negative (Negative); WBC Urine Automated 0-5 /hpf (0-5); pH Urine 5.5 (4.5-7.5)
[2025-02-27 15:51] LABS: Urine Potassium 24.3 mmol/L
--- NOTE | 2025-02-27 17:33 | Electrocardiogram Report ---
Test Reason : Blood Pressure : */* mmHG Vent. Rate : 88 BPM Atrial Rate : 88 BPM P-R Int : 164 ms QRS Dur : 104 ms QT Int : 382 ms P-R-T Axes : 47 45 48 degrees QTcB Int : 462 ms Normal sinus rhythm Normal ECG When compared with ECG of 25-Feb-2025 17:07, Incomplete right bundle branch block is no longer Present Confirmed by Nba Wallace ([id number]) on 02/27/2025 5:33:16 PM Referred By: NO PCP Confirmed By: Nba Wallace
[2025-02-28] MEDS: HYDROmorphone INJ 0.5 MG/0.5 ML SYR IV STA (05:28)
[2025-02-28 06:10] LABS: Basophils # (auto) 0.04 K/uL (0.00-0.20); Basophils % (auto) 0.6 %; Eosinophils # (auto) 0.29 K/uL (0.00-0.50); Eosinophils % (auto) 4.3 %; Hematocrit (blood only) 39.4 % (42.0-52.0); Hemoglobin 12.2 g/dl (14.0-18.0); Immature Granulocytes % (auto) 1.5 %; Lymphocytes # (auto) 1.58 K/uL (1.20-3.40); Lymphocytes % (auto) 23.2 %; Mean Corpuscular Hemoglobin 24.8 pg (25.0-34.0); Mean Corpuscular Volume 80.2 fL (80.0-100.0); Mean Platelet Volume 9.7 fL (9.4-12.4); Monocytes # (auto) 0.85 K/uL (0.11-0.59); Monocytes % (auto) 12.5 %; Neutrophils # (auto) 3.94 K/uL (1.40-6.50); Neutrophils % (auto) 57.9 %; Platelet Count 285 K/uL (130-400); RDW Coefficient of Variation 14.4 % (11.5-14.5); RDW Standard Deviation 41.5 fL (36.4-46.3); Red Blood Count 4.91 M/uL (4.70-6.10)
[2025-02-28 06:23] LABS: BUN Creatinine Ratio 28.6 (10-20); Calcium 9.4 mg/dl (8.6-10.3); Creatinine Clr Calc Pharmacy 93.4 ml/min; Potassium 4.5 mmol/L (3.5-5.1)
[2025-02-28] MEDS ORDERED: INSULIN ASPART PER UNIT CHARGE SC SCH (07:30)
[2025-02-28] MEDS: LANTUS PER UNIT CHARGE SC SCH ×2 (08:09→21:28)
[2025-02-28] MEDS: INSULIN ASPART PER UNIT CHARGE SC SCH ×2 (08:10→17:15)
--- NOTE | 2025-02-28 09:07 | Nephrology Progress Note ---
Date of Service February 28, 2025 Assessment & Plan (1) PASHA (acute kidney injury): Plan: improving nonoliguric stage I bordering on stage II acute kidney injury, prerenal acute kidney injury is certainly possible though he may well prove to have ischemic ATN. Baseline creatinine 1.2 which is his where he was on admission. Peaked at 2.1 on 02/27; down to 1.4 today. 6.1 L negative on the admission and also status post obligate exposure to IV contrast on presentation 02/25 with interval diuresis also obligate. UA most c/w mild volume depletion though some tubular dysfunction evident as well. -cautious resumption of select diuretics given 02 needs and R HF >> torsemide 10 mg and spironolactone 25 mg today ordered -daily basic metabolic panel -no indication for discussion of renal replacement therapy -strict intake and output to continue -cont low Na diet -ordered daily standing weights 02/27; bed weight today > d/w charge nurse -started FR 1.8L Care coordinated w/ Dr Reese re PASHA etiologies, mgt, orders placed in person; we are in agreement (2) Acute on chronic diastolic heart failure: Plan: not likely to tolerate holding diuretics for long. hgb 11.8; no acute issue w/ anemia HTN has been well controlled past 24 hrs. >>if BP/volume an issues, suggest lasix 40 mg IV x 1 (3) Acute and chronic respiratory failure with hypercapnia: Plan: using bipap here -cont to encourage bipap use Admission and Anticipated Discharge Date Admission Date: February 25, 2025 Subjective no interval events clinically. Continues to complain of edema which he feels is unchanged. Does note more urine output today than yesterday. Eager for hospital discharge Review of Systems 2 Review of Systems: All systems reviewed & are unremarkable except as noted in Subjective Physical Exam 2 Constitutional: well developed ( Sitting up in chair on 4 L O2 NC), well nourished and + morbidly obese; no acute distress Eyes: EOM intact bilaterally ENMT: Mouth: + dry oral mucous membranes and + edentulous Respiratory: normal respiratory effort Auscultation: + diminished lung sounds Cardiovascular: Rate/Rhythm: regular rate ( Heart tones distant) and regular rhythm Extremities: + edema (1+) Gastrointestinal (Abdomen): Inspection/Auscultation: normal bowel sounds P ercussion/Palpation: abdomen soft; abdomen nontender Musculoskeletal: Extremities: strength 5/5 throughout and + leg foreshortened ( left BKA) Skin: no rashes, warm and dry Psychiatric: Orientation: alert and oriented x 3 Results & Data Vital Signs (Past 12 Hours) Vital Signs Temp Pulse Pulse Resp BP Pulse Ox O2 Del Method 02/28/25 07:24 36.6 C 80 22 142/73 H 92 Nasal Cannula 02/28/25 03:34 78 20 95 02/28/25 03:27 36.7 C 77 18 137/80 93 CPAP 02/27/25 22:51 36.7 C 81 18 148/75 H 93 Nasal Cannula 02/27/25 21:49 83 02/27/25 21:00 80 20 95 O2 Flow Rate 02/28/25 07:24 4 02/28/25 03:34 5 02/28/25 03:27 02/27/25 22:51 4 02/27/25 21:49 02/27/25 21:00 5 Laboratory Results 02/28/25 05:23 02/28/25 05:23 UA >> trace glucose, protein; 2+ blood; 1012; Yamila 33, uCl 22
[2025-02-28] MEDS: SPIRONOLACTONE 25 MG TAB PO SCH (11:26)
[2025-02-28] MEDS: TORSEMIDE 10 MG TAB PO SCH (11:26)
--- NOTE | 2025-02-28 13:30 | XRay Report ---
XR forearm RT 2V CLINICAL HISTORY: right lat and proximal forearm pain COMPARISON: None FINDINGS: 2 views of the right forearm demonstrate no acute osseous or articular abnormalities. Ther e is negative ulnar variance at the wrist. There is mild osteoarthritis of the elbow joint. IMPRESSION: No acute findings as described. ACT 112: Negative or not required by law. Electronically signed by: Darby Mcclain M.D. 02/28/2025 1:28 PM
--- NOTE | 2025-02-28 15:12 | Hospitalist Progress Note ---
Date of Service February 28, 2025 Assessment & Plan (1) CAD (coronary artery disease): (2) Noncompliance with CPAP treatment: (3) Acute on chronic diastolic heart failure: Plan Acute hypoxic respiratory failure Acute on chronic diastolic heart failure Patient presents to the hospital with chest pain with radiation to both arms; found to be hypoxic to 70% in room air Chest x-ray and CTA chest consistent with pulmonary edema On torsemide twice daily; questionable compliance to spironolactone Last echocardiogram in December 2024 showed EF of 55 to 60% with grade 1 diastolic dysfunction. Patient was admitted to telemetry floor; was started on BiPAP with improvement in oxygenation. He was also diuresed with IV Lasix 40 mg twice a day. Creatinine up trended to 2.11; at which point diuretics and antihypertensives were held. Wean off oxygen as tolerated Acute kidney injury Patient's creatinine up trended to 2.11 from 1.23 on admission on 02/27. Suspect likely related with hypoxia and change in blood pressure Nephrology on board, cautious resumption of select diuretics. Creatinine improving trend. Labs in AM. Chest pain History of CAD Last cardiac cath on September 2024 which 50% proximal LAD, 50% mid LAD, 100% diagonal branch vessel occlusion, 40% mid circumflex, 40% obtuse marginal vessel stenosis, normal right coronary artery High-sensitivity troponin troponin x 3 negative EKG reviewed by cardiology; no significant ST or T wave changes Monitor for recurrence of chest pain Continue aspirin, Lipitor. Metoprolol dose increased to 150 mg twice daily Type 2 DM II A1C 10.2% 12/2024 glycemic pharmacy discontinue insulin pump, on sc insulin while inpatient DAMION- coninue on bipap while inpatient when sleeping. Hypertension- continue on amlodipine, metoprolol, losartan, Aldactone Tobacco use disorder- current use of tobacco; smoking cessation advised. DVT lovenox Bid Full code Dispositionpatient reports that he is weaker compared to his baseline and would like to go to rehab. PT OT ordered. Case management on board please note the above document was generated using voice recognition software. It may contain grammatical, syntax or spelling errors. Any formal questions or concerns about the content, text or information contained within the body of this dictation should be directly addressed to the provider for clarification Admission and Anticipated Discharge Date Admission Date: February 25, 2025 Subjective Patient was seen and examined at bedside. Patient was sitting up in chair, on room air, NAD, resting comfortably. Patient reports having chronic back pain by lying on the bed for a long time, hence he is out of bed. Patient is eating okay and moving bowels okay. Patient reports right forearm pain, x-ray without any acute issues. Will apply diclofenac gel to right forearm. No redness or swelling of right forearm noted. Physical Exam Physical Exam: Constitutional: Awake alert oriented x 3. Not in distress. On 4 L nasal cannula oxygen. Low Chest: Bilateral clear breath sound Cardiovascular: RRR, no murmur, no edema Vessels: no JVD or carotid bruit Abdomen: normal bowel sounds, soft, nontender, no hepatosplenomegaly Musculoskeletal: left BKA, no pitting edema Skin: no rashes, warm and dry normal turgor Neurologic: PERRL, EOMI, accommodation nl, no face palsy, no dysarthria CN's II- XI intact bilaterally and moves all extremities Results & Data Results & Data Vital Signs (Past 12 Hours) Vital Signs Temp Pulse Pulse Resp BP Pulse Ox Pulse Ox 02/28/25 11:38 36.7 C 82 19 158/81 H 93 02/28/25 10:44 02/28/25 08:00 96 02/28/25 07:24 36.6 C 80 22 142/73 H 92 02/28/25 03:34 78 20 95 02/28/25 03:27 36.7 C 77 18 137/80 93 O2 Del Method O2 Del Method O2 Flow Rate O2 Flow Rate 02/28/25 11:38 Nasal Cannula 4 02/28/25 10:44 Nasal Cannula 4 02/28/25 08:00 Nasal Cannula 4 02/28/25 07:24 Nasal Cannula 4 02/28/25 03:34 5 02/28/25 03:27 CPAP (1) CAD (coronary artery disease) Coronary Disease-Associated Artery/Lesion type: [place] artery [place] vs. transplanted heart: [place] heart Associated angina: without angina Qualified Code(s): I25.10 - Atherosclerotic heart disease of [place] coronary artery without angina pectoris
[2025-02-28] MEDS: oxyCODONE HCL IR 5 MG TAB (IMMEDIATE RELEASE) PO PRN (20:30)
[2025-03-01 07:26] LABS: Hematocrit (blood only) 39.4 % (42.0-52.0); Hemoglobin 12.4 g/dl (14.0-18.0); Mean Corpuscular Hemoglobin 25.2 pg (25.0-34.0); Mean Corpuscular Hgb Conc 31.5 g/dL (32.0-36.0); Mean Corpuscular Volume 79.9 fL (80.0-100.0); Mean Platelet Volume 9.3 fL (9.4-12.4); Platelet Count 262 K/uL (130-400); RDW Coefficient of Variation 14.6 % (11.5-14.5); RDW Standard Deviation 42.4 fL (36.4-46.3); Red Blood Count 4.93 M/uL (4.70-6.10); White Blood Count 6.82 K/ul (4.8-10.8)
[2025-03-01 07:42] LABS: BUN Creatinine Ratio 31.7 (10-20); Calcium 9.6 mg/dl (8.6-10.3); Creatinine Clr Calc Pharmacy 113.2 ml/min; Magnesium 2.1 mg/dl (1.7-2.4); Phosphorus 4.3 mg/dl (2.5-4.9); Potassium 4.9 mmol/L (3.5-5.1)
[2025-03-01] MEDS: TORSEMIDE 10 MG TAB PO ONE (11:27)
--- NOTE | 2025-03-01 14:42 | Pharmacy Report ---
Pharmacy Glycemic Short Note 2 - Date of Service March 01, 2025 - Glycemic Short BSG Results (Last 24 hours): 02/28/25 02/28/25 03/01/25 16:15 20:59 07:08 Glucose 269 H POC Glucose 140 H 203 H 03/01/25 03/01/25 07:37 11:27 Glucose POC Glucose 257 H 283 H OUTPATIENT ANTIDIABETIC REGIMEN: * Omnipod insulin pump- dosing per last DM visit, December 2024: * Basal rate: 2.8 units/hr * Carb ratio: 3 * Sensitivity factor: 9 * Metformin 500 mg ER PO qAM A1c = 10.9% (12/23/24) ASSESSMENT: 03/01/25 * BSGs [phone] mg/dL yesterday with 182 units of insulin (100 units of basal + 61 units of prandial/correctional) * Fasting 257 mg/dL this morning- will adjust PM scale * Tighten Novolog parameter in AM starting tomorrow as BSG remained elevated today, PASHA improved 02/27/25: * Blood sugars elevated yesterday, ranging 132-313 mg/dL * Received 142 units of insulin (80 units of basal and 62 units of bolus) * Fasting blood sugar elevated again this morning so will increase basal * Blood sugar trend has been elevated during the day w/ significant improvement at HS * Of note, SCr continues to trend up (1.23 -> 1.59 -> 2.11 mg/dL), will need to monitor for possible insulin accumulation 02/26/25: * Blood sugars labile over past 24 hours, ranging 120->300 mg/dL * Received 141 units of insulin (70 units of basal and 71 units of prandial/correctional bolus/IV insulin) * Hyperglycemic at lunch today, but confirmed with nurse that patient had uncovered late breakfast ~10 AM * Will hold off on aggressive changes at this time since not covered appropriately 02/25/25: * Bry is T2DM that is known to the pharmacy glycemic management team from previous admissions. 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 * Pharmacy consulted for transition to SQ basal + bolus insulin with severe hyperglycemia. senior software qa analyst confirms that insulin pump was removed in ED. * Will base insulin doses on home usage as well as past admission data PLAN FOR INPATIENT GLYCEMIC CONTROL: * Hold outpatient oral diabetes medications * Basal insulin * Lantus 100 units SC qAM * Lantus 0/10/20 units per scale * Reassess in AM * Bolus insulin * NovoLog per scale ACHS or Q6hrs while NPO * Goal Range: Low 110 mg/dL - High 140 mg/dL at 0730,1130; 120-160 mg/dL at 1630,2100 * Correction Factor: 10 mg/dL/unit with breakfast and lunch, 12 mg/dL/unit with dinner and at HS * Nutritional / Prandial insulin per carb ratio of 1 unit per 2.5 grams CHO consumed at breakfast and lunch, 1 unit per 4 grams CHO consumed at dinner and HS
--- NOTE | 2025-03-01 15:20 | Hospitalist Progress Note ---
Date of Service March 01, 2025 Assessment & Plan (1) CAD (coronary artery disease): (2) Noncompliance with CPAP treatment: (3) Acute on chronic diastolic heart failure: Plan Acute hypoxic respiratory failure Acute on chronic diastolic heart failure Patient presents to the hospital with chest pain with radiation to both arms; found to be hypoxic to 70% in room air Chest x-ray and CTA chest consistent with pulmonary edema On torsemide twice daily; questionable compliance to spironolactone Last echocardiogram in December 2024 showed EF of 55 to 60% with grade 1 diastolic dysfunction. Patient was admitted to telemetry floor; was started on BiPAP with improvement in oxygenation. He was also diuresed with IV Lasix 40 mg twice a day. Creatinine up trended to 2.11; at which point diuretics and antihypertensives were held. Wean off oxygen as tolerated d/w nephro, increasing diuresis to torsemide 80 mg daily. Acute kidney injury Patient's creatinine up trended to 2.11 from 1.23 on admission on 02/27. Suspect likely related with hypoxia and change in blood pressure Nephrology on board,appreciate recs. Creatinine improving trend. Labs in AM. Cr resolved. Chest pain History of CAD Last cardiac cath on September 2024 which 50% proximal LAD, 50% mid LAD, 100% diagonal branch vessel occlusion, 40% mid circumflex, 40% obtuse marginal vessel stenosis, normal right coronary artery High-sensitivity troponin troponin x 3 negative EKG reviewed by cardiology; no significant ST or T wave changes Monitor for recurrence of chest pain Continue aspirin, Lipitor. Metoprolol dose increased to 150 mg twice daily Type 2 DM II A1C 10.2% 12/2024 glycemic pharmacy discontinue insulin pump, on sc insulin while inpatient DAMION- coninue on bipap while inpatient when sleeping. Hypertension- continue on amlodipine, metoprolol, losartan, Aldactone Tobacco use disorder- current use of tobacco; smoking cessation advised. DVT lovenox Bid Full code Dispositionpatient reports that he is weaker compared to his baseline and would like to go to rehab. PT OT ordered. Case management on board please note the above document was generated using voice recognition software. It may contain grammatical, syntax or spelling errors. Any formal questions or concerns about the content, text or information contained within the body of this dictation should be directly addressed to the provider for clarification Admission and Anticipated Discharge Date Admission Date: February 25, 2025 Subjective Patient was seen and examined at bedside. Patient was lying in bed, on room air, NAD, resting comfortably. No complaints of back pain today, no swelling/erythema of rt forearm. reports forearm pain/has been denying diclo gel per RN. Patient is eating okay and moving bowels okay. Physical Exam Physical Exam: Constitutional: Awake alert oriented x 3. Not in distress. On 4 L nasal cannula oxygen. Obese class III. Chest: Bilateral decreased breath sounds (likely due to high BMI). Cardiovascular: RRR, no murmur, no edema Vessels: no JVD or carotid bruit Abdomen: normal bowel sounds, soft, nontender, no hepatosplenomegaly Musculoskeletal: left BKA, no pitting edema Skin: no rashes, warm and dry normal turgor Neurologic: PERRL, EOMI, accommodation nl, no face palsy, no dysarthria CN's II- XI intact bilaterally and moves all extremities Results & Data Results & Data Vital Signs (Past 12 Hours) Vital Signs Temp Pulse Pulse Resp BP Pulse Ox O2 Del Method 03/01/25 14:43 36.7 C 85 19 162/77 H 96 Nasal Cannula 03/01/25 10:54 36.8 C 83 19 157/77 H 93 Nasal Cannula 03/01/25 09:42 79 03/01/25 08:07 36.3 C L 76 18 167/67 H 96 Nasal Cannula 03/01/25 07:48 Nasal Cannula 03/01/25 03:24 36.7 C 79 18 158/83 H 98 CPAP O2 Flow Rate 03/01/25 14:43 4 03/01/25 10:54 5 03/01/25 09:42 03/01/25 08:07 5 03/01/25 07:48 5 03/01/25 03:24 (1) CAD (coronary artery disease) Coronary Disease-Associated Artery/Lesion type: [place] artery [place] vs. transplanted heart: [place] heart Associated angina: without angina Qualified Code(s): I25.10 - Atherosclerotic heart disease of [place] coronary artery without angina pectoris
--- NOTE | 2025-03-01 15:26 | Nephrology Progress Note ---
Date of Service March 01, 2025 Assessment & Plan (1) PASHA (acute kidney injury): Plan: resolved nonoliguric stage I bordering on stage II acute kidney injury, prerenal acute kidney injury is certainly possible though he may well prove to have ischemic ATN. Baseline creatinine 1.2 which is his where he was on admission. Peaked at 2.1 on 02/27; down to 1.2 today. 11.4 L negative on the admission and also status post obligate exposure to IV contrast on presentation 02/25 with interval diuresis also obligate. UA most c/w mild volume depletion though some tubular dysfunction evident as well. -cautious resumption of select diuretics given 02 needs and R HF >> torsemide 10 mg increased to 80 mg today and spironolactone 25 mg to continue >> with this diuresed 6.4L (some could also be post ATN diuresis) -daily basic metabolic panel -no indication for discussion of renal replacement therapy -strict intake and output to continue -cont low Na diet -ordered daily standing weights 02/27; bed weight today ->>>>>FR 1.8L liberalized d/t pt concerns to 2.2L Care coordinated w/ Dr Hugh jacobs diuretics, PASHA and volume status, FR; we are in agreement (2) Acute on chronic diastolic heart failure: Plan: not likely to tolerate holding diuretics for long. hgb 11.8; no acute issue w/ anemia HTN had been well controlled 02/28 then up again. ->>>>yesterday resumed torsemide 10 mg >> increased after d/w hospitalist to 80 mg today >>>reevaluate dose in AM -cont spironolactone 25 mg daily (3) Acute and chronic respiratory failure with hypercapnia: Plan: using bipap here -cont to encourage bipap use Admission and Anticipated Discharge Date Admission Date: February 25, 2025 Subjective c/o what he calls dehydration cramps and dislikes FR, arguing w/ staff about what counts and what doesn't and why FR in place. no edema, still on 02nc but no sob; no ascites/abd fullness; ++ thirst Review of Systems 2 Review of Systems: All systems reviewed & are unremarkable except as noted in Subjective Physical Exam 2 Constitutional: well developed ( lying in bed on 3 L O2 NC), well nourished and + morbidly obese; no acute distress Eyes: EOM intact bilaterally ENMT: Mouth: + dry oral mucous membranes and + edentulous Respiratory: normal respiratory effort Auscultation: + diminished lung sounds Cardiovascular: Rate/Rhythm: regular rate ( Heart tones distant) and regular rhythm Extremities: + edema (trace distal LE) Gastrointestinal (Abdomen): Inspection/Auscultation: normal bowel sounds P ercussion/Palpation: abdomen soft; abdomen nontender Musculoskeletal: Extremities: strength 5/5 throughout and + leg foreshortened ( left BKA) Skin: no rashes, warm and dry Psychiatric: Orientation: alert and oriented x 3 Results & Data Vital Signs (Past 12 Hours) Vital Signs Temp Pulse Pulse Resp BP Pulse Ox O2 Del Method 03/01/25 14:43 36.7 C 85 19 162/77 H 96 Nasal Cannula 03/01/25 10:54 36.8 C 83 19 157/77 H 93 Nasal Cannula 03/01/25 09:42 79 03/01/25 08:07 36.3 C L 76 18 167/67 H 96 Nasal Cannula 03/01/25 07:48 Nasal Cannula 03/01/25 03:24 36.7 C 79 18 158/83 H 98 CPAP O2 Flow Rate 03/01/25 14:43 4 03/01/25 10:54 5 03/01/25 09:42 03/01/25 08:07 5 03/01/25 07:48 5 03/01/25 03:24 Laboratory Results 03/01/25 07:08 03/01/25 07:08
[2025-03-01 17:31] LABS: Calcium 10.7 mg/dl (8.6-10.3); Creatinine Clr Calc Pharmacy 87.1 ml/min; Magnesium 1.8 mg/dl (1.7-2.4); Potassium 4.5 mmol/L (3.5-5.1)
[2025-03-01] MEDS: DICLOFENAC SOD 1% GEL 100 GM TUBE EXT PRN (22:27)
[2025-03-02] MEDS: MAGNESIUM SULFATE / D5W 1 GM/100 ML BAG IV ONE (00:37)
[2025-03-02] MEDS: ALBUMIN 25% 12.5 GM/50 ML VIAL IV ONE (02:39)
[2025-03-02 03:51] LABS: Appearance Urine Cloudy (Clear); Bacteria Urine Automated None Seen (None Seen); Bilirubin Urine Negative (Negative); Blood Urine 2+ (Negative); Color Urine Yellow; Epithelial Cell Urine Auto 0-2 /hpf (0-2); Glucose Urine UA Negative (Negative); Ketones Urine Negative (Negative); Leukocyte Esterase Urine Negative (Negative); Nitrite Urine Negative (Negative); Protein Urine 2+ (Negative); RBC Urine Automated 0-2 /hpf (0-2); Specific Gravity Urine 1.011 (1.000-1.030); Urobilinogen Urine Negative (Negative); WBC Urine Automated 0-5 /hpf (0-5)
--- NOTE | 2025-03-02 06:46 | Communication Note ---
Date of Service: March 01, 2025 Patient complained to RN last night that he felt dry. Serum creatinine 1.6 from 1.23 in a.m. (03/01) AP ARF Hold spironolactone and diuretic for now until patient seen by nephrology.
[2025-03-02 08:23] LABS: BUN Creatinine Ratio 35.5 (10-20); Calcium 10.2 mg/dl (8.6-10.3); Creatinine Clr Calc Pharmacy 90.8 ml/min; Magnesium 1.9 mg/dl (1.7-2.4); Potassium 4.5 mmol/L (3.5-5.1)
[2025-03-02] MEDS ORDERED: TORSEMIDE 20 MG TAB PO SCH (09:00)
--- NOTE | 2025-03-02 12:31 | Nephrology Progress Note ---
Date of Service March 02, 2025 Assessment & Plan (1) PASHA (acute kidney injury): Plan: recurrent w/ diuresis nonoliguric stage I bordering on stage II acute kidney injury, prerenal acute kidney injury is certainly possible though he may well prove to have ischemic ATN. Baseline creatinine 1.2 which is his where he was on admission. Peaked at 2.1 on 02/27; down to 1.2 today. 15.1 L negative on the admission and also status post obligate exposure to IV contrast on presentation 02/25 with interval diuresis also obligate; could be seeing some post ATN diuresis. UA most c/w mild volume depletion though some tubular dysfunction evident as well. ->>>>for today hold spironolactone, torsemide and let renal function/volume status equilibrate >>tomorrow or day after suggest lower torsemide dose such as 30 mg daily w/ appropriate K supplement -daily basic metabolic panel -no indication for discussion of renal replacement therapy -strict intake and output to continue -cont low Na diet -ordered daily standing weights 02/27; 152.5 kg on 03/02 ->>>>>FR 1.8L liberalized d/t pt concerns to 2.2L on 03/01 and on 03/02 FR lifted d/t pt complaints after reinforcing this is very much against medical advice; continue to educate/support pt Care coordinated w/ Dr Hugh garcia through the day in person and via TText re diuretics, PASHA and volume status, FR changes/dispo; we are in agreement (2) Acute on chronic diastolic heart failure: Plan: not likely to tolerate holding diuretics for long. hgb 11.8; no acute issue w/ anemia HTN had been well controlled 02/28 then up again; better today ->hold diuretics as above (3) Acute and chronic respiratory failure with hypercapnia: Plan: using bipap here -cont to encourage bipap use Admission and Anticipated Discharge Date Admission Date: February 25, 2025 Subjective diuresing aggressively; ongong c/o about fluid limit despite liberalizing; pt c/o thirst, cramps. no sob; edema improved. reeducated mutliple times through day by RN and [place] providers of indications and risks of disregarding Review of Systems 2 Review of Systems: All systems reviewed & are unremarkable except as noted in Subjective Physical Exam 2 Constitutional: well developed (sitting up in chair on O2 NC), well nourished and + morbidly obese; no acute distress Eyes: EOM intact bilaterally ENMT: Mouth: + dry oral mucous membranes and + edentulous Respiratory: normal respiratory effort Auscultation: + diminished lung sounds Cardiovascular: Rate/Rhythm: regular rate ( Heart tones distant) and regular rhythm Extremities: + edema (trace distal LE) Gastrointestinal (Abdomen): Inspection/Auscultation: normal bowel sounds P ercussion/Palpation: abdomen soft; abdomen nontender Musculoskeletal: Extremities: strength 5/5 throughout and + leg foreshortened ( left BKA) Skin: no rashes, warm and dry Psychiatric: Orientation: alert and oriented x 3 Results & Data Vital Signs (Past 12 Hours) Vital Signs Temp Pulse Pulse Resp BP Pulse Ox Pulse Ox 03/02/25 11:40 36.5 C 89 19 127/69 96 03/02/25 08:00 96 03/02/25 07:57 36.6 C 86 18 128/68 97 03/02/25 07:00 85 03/02/25 03:19 36.4 C L 95 H 22 126/64 95 O2 Del Method O2 Del Method O2 Flow Rate O2 Flow Rate 03/02/25 11:40 Nasal Cannula 03/02/25 08:00 Nasal Cannula 4 03/02/25 07:57 Room Air 03/02/25 07:00 03/02/25 03:19 Nasal Cannula 4 Laboratory Results 03/01/25 07:08 03/02/25 07:51
[2025-03-02] MEDS: INSULIN ASPART PER UNIT CHARGE SC SCH (12:45)
--- NOTE | 2025-03-02 14:56 | Hospitalist Progress Note ---
Date of Service March 02, 2025 Assessment & Plan (1) CAD (coronary artery disease): (2) Noncompliance with CPAP treatment: (3) Acute on chronic diastolic heart failure: Plan Acute hypoxic respiratory failure Acute on chronic diastolic heart failure Patient presents to the hospital with chest pain with radiation to both arms; found to be hypoxic to 70% in room air Chest x-ray and CTA chest consistent with pulmonary edema On torsemide twice daily; questionable compliance to spironolactone Last echocardiogram in December 2024 showed EF of 55 to 60% with grade 1 diastolic dysfunction. Patient was admitted to telemetry floor; was started on BiPAP with improvement in oxygenation. He was also diuresed with IV Lasix 40 mg twice a day. Creatinine up trended to 2.11; at which point diuretics and antihypertensives were held. Wean off oxygen as tolerated Diuretics on hold due to Cr uptrend, nephro assisting w/ diuresis. Acute kidney injury Patient's creatinine up trended to 2.11 from 1.23 on admission on 02/27. Suspect likely related with hypoxia and change in blood pressure Nephrology on board, diuretics on hold for today. Creatinine uptrended again. Labs in AM. Chest pain History of CAD Last cardiac cath on September 2024 which 50% proximal LAD, 50% mid LAD, 100% diagonal branch vessel occlusion, 40% mid circumflex, 40% obtuse marginal vessel stenosis, normal right coronary artery High-sensitivity troponin troponin x 3 negative EKG reviewed by cardiology; no significant ST or T wave changes Monitor for recurrence of chest pain Continue aspirin, Lipitor. Metoprolol dose increased to 150 mg twice daily Type 2 DM II A1C 10.2% 12/2024 glycemic pharmacy discontinue insulin pump, on sc insulin while inpatient DAMION- coninue on bipap while inpatient when sleeping. Hypertension- continue on amlodipine, metoprolol, losartan, Aldactone Tobacco use disorder- current use of tobacco; smoking cessation advised. DVT lovenox Bid Full code Dispositionpatient reports that he is weaker compared to his baseline and would like to go to rehab. PT OT ordered. Case management on board please note the above document was generated using voice recognition software. It may contain grammatical, syntax or spelling errors. Any formal questions or concerns about the content, text or information contained within the body of this dictation should be directly addressed to the provider for clarification Admission and Anticipated Discharge Date Admission Date: February 25, 2025 Subjective Patient was seen and examined at bedside. Patient was lying in bed, on room air, NAD, resting comfortably. Pt doesn't like fluid restriction, FR has been already liberalized still pt w/ complaints on FR. No complaints of back pain today, no swelling/erythema of rt forearm. Patient is eating okay and moving bowels okay. Physical Exam Physical Exam: Constitutional: Awake alert oriented x 3. Not in distress. On 4 L nasal cannula oxygen. Obese class III. Chest: Bilateral decreased breath sounds (likely due to high BMI). Cardiovascular: RRR, no murmur, no edema Vessels: no JVD or carotid bruit Abdomen: normal bowel sounds, soft, nontender, no hepatosplenomegaly Musculoskeletal: left BKA, no pitting edema Skin: no rashes, warm and dry normal turgor Neurologic: PERRL, EOMI, accommodation nl, no face palsy, no dysarthria CN's II- XI intact bilaterally and moves all extremities Results & Data Results & Data Vital Signs (Past 12 Hours) Vital Signs Temp Pulse Pulse Resp BP Pulse Ox Pulse Ox 03/02/25 11:40 36.5 C 89 19 127/69 96 03/02/25 09:00 03/02/25 08:00 96 03/02/25 07:57 36.6 C 86 18 128/68 97 03/02/25 07:00 85 03/02/25 03:19 36.4 C L 95 H 22 126/64 95 O2 Del Method O2 Del Method O2 Flow Rate O2 Flow Rate 03/02/25 11:40 Nasal Cannula 03/02/25 09:00 Nasal Cannula 3 03/02/25 08:00 Nasal Cannula 4 03/02/25 07:57 Room Air 03/02/25 07:00 03/02/25 03:19 Nasal Cannula 4 (1) CAD (coronary artery disease) Coronary Disease-Associated Artery/Lesion type: [place] artery [place] vs. transplanted heart: [place] heart Associated angina: without angina Qualified Code(s): I25.10 - Atherosclerotic heart disease of [place] coronary artery without angina pectoris
[2025-03-03 07:24] LABS: BUN Creatinine Ratio 43.9 (10-20); Calcium 9.7 mg/dl (8.6-10.3); Creatinine Clr Calc Pharmacy 110.4 ml/min; Potassium 4.2 mmol/L (3.5-5.1)
[2025-03-03] MEDS: INSULIN ASPART PER UNIT CHARGE SC SCH (09:06)
--- NOTE | 2025-03-03 13:07 | Pharmacy Report ---
Pharmacy Glycemic Short Note 2 - Date of Service March 03, 2025 - Glycemic Short BSG Results (Last 24 hours): 03/02/25 03/02/25 03/03/25 16:04 20:19 06:38 Glucose 212 H POC Glucose 183 H 126 H 03/03/25 03/03/25 07:08 11:23 Glucose POC Glucose 197 H 217 H OUTPATIENT ANTIDIABETIC REGIMEN: * Omnipod insulin pump- dosing per last DM visit, December 2024: * Basal rate: 2.8 units/hr * Carb ratio: 3 * Sensitivity factor: 9 * Metformin 500 mg ER PO qAM A1c = 10.9% (12/23/24) ASSESSMENT: 03/03/25: * Blood sugar trend continues w/ highs in AM and pre-lunch * Basal increased yesterday and fasting blood sugar improved from 252 -> 197 mg/dL * Will further tighten AM parameters today 03/01/25 * BSGs [phone] mg/dL yesterday with 182 units of insulin (100 units of basal + 61 units of prandial/correctional) * Fasting 257 mg/dL this morning- will adjust PM scale * Tighten Novolog parameter in AM starting tomorrow as BSG remained elevated today, PASHA improved 02/27/25: * Blood sugars elevated yesterday, ranging 132-313 mg/dL * Received 142 units of insulin (80 units of basal and 62 units of bolus) * Fasting blood sugar elevated again this morning so will increase basal * Blood sugar trend has been elevated during the day w/ significant improvement at HS * Of note, SCr continues to trend up (1.23 -> 1.59 -> 2.11 mg/dL), will need to monitor for possible insulin accumulation 02/26/25: * Blood sugars labile over past 24 hours, ranging 120->300 mg/dL * Received 141 units of insulin (70 units of basal and 71 units of prandial/correctional bolus/IV insulin) * Hyperglycemic at lunch today, but confirmed with nurse that patient had uncovered late breakfast ~10 AM * Will hold off on aggressive changes at this time since not covered appropriately 02/25/25: * Bry is T2DM that is known to the pharmacy glycemic management team from previous admissions. 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 * Pharmacy consulted for transition to SQ basal + bolus insulin with severe hyperglycemia. 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 * Will base insulin doses on home usage as well as past admission data PLAN FOR INPATIENT GLYCEMIC CONTROL: * Hold outpatient oral diabetes medications * Basal insulin * Lantus 100 units SC qAM * Lantus 20/30/40 units per scale SC HS * Reassess in AM * Bolus insulin * NovoLog per scale ACHS or Q6hrs while NPO * Goal Range: Low 110 mg/dL - High 140 mg/dL at 0730; 120-160 mg/dL at 1130, 1630, 2100 * Correction Factor: 8 mg/dL/unit with breakfast and lunch, 12 mg/dL/unit with dinner and at HS * Nutritional / Prandial insulin per carb ratio of 1 unit per 1.5 grams CHO consumed at breakfast and lunch, 1 unit per 4 grams CHO consumed at dinner and HS
--- NOTE | 2025-03-03 15:15 | Hospitalist Progress Note ---
Date of Service March 03, 2025 Assessment & Plan (1) CAD (coronary artery disease): (2) Noncompliance with CPAP treatment: (3) Acute on chronic diastolic heart failure: Plan Acute hypoxic respiratory failure Acute on chronic diastolic heart failure Patient presents to the hospital with chest pain with radiation to both arms; found to be hypoxic to 70% in room air Chest x-ray and CTA chest consistent with pulmonary edema On torsemide twice daily; questionable compliance to spironolactone Last echocardiogram in December 2024 showed EF of 55 to 60% with grade 1 diastolic dysfunction. Patient was admitted to telemetry floor; was started on BiPAP with improvement in oxygenation. He was also diuresed with IV Lasix 40 mg twice a day. Creatinine up trended to 2.11; at which point diuretics and antihypertensives were held. Wean off oxygen as tolerated resume torsemide at 30 mg daily, nephro assisting w/ diuresis. Acute kidney injury Patient's creatinine up trended to 2.11 from 1.23 on admission on 02/27. Suspect likely related with hypoxia and change in blood pressure Nephrology on board, diuretics on hold for today. Creatinine uptrended again. Labs in AM. Chest pain History of CAD Last cardiac cath on September 2024 which 50% proximal LAD, 50% mid LAD, 100% diagonal branch vessel occlusion, 40% mid circumflex, 40% obtuse marginal vessel stenosis, normal right coronary artery High-sensitivity troponin troponin x 3 negative EKG reviewed by cardiology; no significant ST or T wave changes Monitor for recurrence of chest pain Continue aspirin, Lipitor. Metoprolol dose increased to 150 mg twice daily Type 2 DM II A1C 10.2% 12/2024 glycemic pharmacy discontinue insulin pump, on sc insulin while inpatient DAMION- coninue on bipap while inpatient when sleeping. 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 he agreed to try but he has done same in the past and ended up not trying. Hypertension- continue on amlodipine, metoprolol, losartan, Aldactone (on hold now due to hal) Tobacco use disorder- current use of tobacco; smoking cessation advised. DVT lovenox Bid Full code Dispositionpatient reports that he is weaker compared to his baseline and would like to go to rehab. PT OT ordered. Case management on board please note the above document was generated using voice recognition software. It may contain grammatical, syntax or spelling errors. Any formal questions or concerns about the content, text or information contained within the body of this dictation should be directly addressed to the provider for clarification Admission and Anticipated Discharge Date Admission Date: February 25, 2025 Subjective Patient was seen and examined at bedside. Patient was lying in bed, on 2L NC O2, NAD, resting comfortably. Pt doesn't like fluid restriction, FR has been already liberalized still pt w/ complaints on FR, it was removed completely. no complaints. pt non compliant w/ bpap. Patient is eating okay and moving bowels okay. Physical Exam Physical Exam: Constitutional: Awake alert oriented x 3. Not in distress. On 2 L nasal cannula oxygen. Obese class III. Chest: Bilateral decreased breath sounds (likely due to high BMI). Cardiovascular: RRR, no murmur, no edema Vessels: no JVD or carotid bruit Abdomen: normal bowel sounds, soft, nontender, no hepatosplenomegaly Musculoskeletal: left BKA, no pitting edema Skin: no rashes, warm and dry normal turgor Neurologic: PERRL, EOMI, accommodation nl, no face palsy, no dysarthria CN's II- XI intact bilaterally and moves all extremities Results & Data Results & Data Vital Signs (Past 12 Hours) Vital Signs Temp Pulse Pulse Resp BP Pulse Ox Pulse Ox 03/03/25 15:00 85 03/03/25 11:21 36.6 C 83 18 151/80 H 94 03/03/25 08:00 96 03/03/25 07:06 36.5 C 80 20 143/67 H 92 03/03/25 07:00 80 O2 Del Method O2 Del Method O2 Flow Rate O2 Flow Rate 03/03/25 15:00 03/03/25 11:21 Nasal Cannula 2 03/03/25 08:00 Nasal Cannula 2 03/03/25 07:06 Nasal Cannula 2 03/03/25 07:00 (1) CAD (coronary artery disease) Coronary Disease-Associated Artery/Lesion type: [place] artery [place] vs. transplanted heart: [place] heart Associated angina: without angina Qualified Code(s): I25.10 - Atherosclerotic heart disease of [place] coronary artery without angina pectoris
[2025-03-03] MEDS: TORSEMIDE 10 MG TAB PO SCH (15:32)
--- NOTE | 2025-03-03 17:28 | Nephrology Progress Note ---
Date of Service March 03, 2025 Assessment & Plan (1) PASHA (acute kidney injury): Plan: recurrent w/ diuresis nonoliguric stage I bordering on stage II acute kidney injury, prerenal acute kidney injury is certainly possible though he may well prove to have ischemic ATN. Baseline creatinine 1.2 which is his where he was on admission. Peaked at 2.1 on 02/27; down to 1.2 today. 15.1 L negative on the admission and also status post obligate exposure to IV contrast on presentation 02/25 with interval diuresis also obligate; could be seeing some post ATN diuresis. UA most c/w mild volume depletion though some tubular dysfunction evident as well. ->>>>Contineu to hold today spironolactone, torsemide and let renal function/volume status equilibrate >>tomorrow or day after suggest lower torsemide dose such as 30 mg daily w/ appropriate K supplement -daily basic metabolic panel -no indication for discussion of renal replacement therapy -strict intake and output to continue -cont low Na diet -ordered daily standing weights 02/27; 152.5 kg on 03/02, 147.8 on 03/02 ->>>>>FR 1.8L liberalized d/t pt concerns to 2.2L on 03/01 and on 03/02 FR lifted d/t pt complaints after reinforcing this is very much against medical advice; continue to educate/support pt (2) Acute on chronic diastolic heart failure: Plan: not likely to tolerate holding diuretics for long. hgb 11.8; no acute issue w/ anemia HTN had been well controlled 02/28 then up again but not crazily high. ->hold diuretics as above (3) Acute and chronic respiratory failure with hypercapnia: Plan: using bipap here -cont to encourage bipap use Admission and Anticipated Discharge Date Admission Date: February 25, 2025 Subjective Patient was seen and examined at bedside. Patient was lying in bed, on 2L NC O2, NAD, resting comfortably. Pt doesn't like fluid restriction, FR has been already liberalized still pt w/ complaints on FR, it was removed completely. no complaints. pt non compliant w/ bpap. Patient is eating okay and moving bowels okay. Review of Systems 2 Review of Systems: Comfortable on 2l lit. Trace pedal edema Physical Exam 2 Physical Exam: Trace pedal edema Results & Data Vital Signs (Past 12 Hours) Vital Signs Temp Pulse Pulse Resp BP Pulse Ox Pulse Ox 03/03/25 15:57 36.6 C 84 20 141/81 H 94 03/03/25 15:43 92 03/03/25 15:30 78 L 03/03/25 15:00 85 03/03/25 11:21 36.6 C 83 18 151/80 H 94 03/03/25 08:00 96 03/03/25 07:06 36.5 C 80 20 143/67 H 92 03/03/25 07:00 80 O2 Del Method O2 Del Method O2 Flow Rate O2 Flow Rate 03/03/25 15:57 Nasal Cannula 2 03/03/25 15:43 Nasal Cannula 2 03/03/25 15:30 Nasal Cannula 1 03/03/25 15:00 03/03/25 11:21 Nasal Cannula 2 03/03/25 08:00 Nasal Cannula 2 03/03/25 07:06 Nasal Cannula 2 03/03/25 07:00 Laboratory Results 03/01/25 07:08 03/03/25 06:38
[2025-03-04 08:02] LABS: BUN Creatinine Ratio 40.2 (10-20); Calcium 9.7 mg/dl (8.6-10.3); Creatinine Clr Calc Pharmacy 108.6 ml/min
--- NOTE | 2025-03-04 14:53 | Hospitalist Progress Note ---
Date of Service March 04, 2025 Assessment & Plan (1) CAD (coronary artery disease): (2) Noncompliance with CPAP treatment: (3) Acute on chronic diastolic heart failure: Plan Acute hypoxic respiratory failure Acute on chronic diastolic heart failure Patient presents to the hospital with chest pain with radiation to both arms; found to be hypoxic to 70% in room air Chest x-ray and CTA chest consistent with pulmonary edema On torsemide twice daily; questionable compliance to spironolactone Last echocardiogram in December 2024 showed EF of 55 to 60% with grade 1 diastolic dysfunction. Patient was admitted to telemetry floor; was started on BiPAP with improvement in oxygenation. He was also diuresed with IV Lasix 40 mg twice a day. Creatinine up trended to 2.11; at which point diuretics and antihypertensives were held. Wean off oxygen as tolerated c/w torsemide at 30 mg daily, nephro assisting w/ diuresis. Acute kidney injury Patient's creatinine up trended to 2.11 from 1.23 on admission on 02/27. Suspect likely related with hypoxia and change in blood pressure Nephrology on board, diuretics as above. Creatinine has been stable. Labs in AM. Chest pain History of CAD Last cardiac cath on September 2024 which 50% proximal LAD, 50% mid LAD, 100% diagonal branch vessel occlusion, 40% mid circumflex, 40% obtuse marginal vessel stenosis, normal right coronary artery High-sensitivity troponin troponin x 3 negative EKG reviewed by cardiology; no significant ST or T wave changes Monitor for recurrence of chest pain Continue aspirin, Lipitor. Metoprolol dose increased to 150 mg twice daily Type 2 DM II A1C 10.2% 12/2024 glycemic pharmacy discontinue insulin pump, on sc insulin while inpatient DAMION- coninue on bipap while inpatient when sleeping. 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 he agreed to try but he has done same in the past and ended up not trying. Hypertension- continue on amlodipine, metoprolol, losartan, Aldactone (on hold now due to hal) Tobacco use disorder- current use of tobacco; smoking cessation advised. DVT lovenox Bid Full code Dispositionpatient reports that he is weaker compared to his baseline and would like to go to rehab. PT OT ordered. Case management on board please note the above document was generated using voice recognition software. It may contain grammatical, syntax or spelling errors. Any formal questions or concerns about the content, text or information contained within the body of this dictation should be directly addressed to the provider for clarification Admission and Anticipated Discharge Date Admission Date: February 25, 2025 Subjective Patient was seen and examined at bedside. Patient was lying in bed, on 2L NC O2, NAD, resting comfortably. Pt doesn't like fluid restriction, FR has been already liberalized still pt w/ complaints on FR, it was removed completely. no complaints. pt non compliant w/ bpap but tried last evening, states he will continue to use HS and prn. Patient is eating okay and moving bowels okay. Physical Exam Physical Exam: Constitutional: Awake alert oriented x 3. Not in distress. On 2 L nasal cannula oxygen. Obese class III. Chest: Bilateral decreased breath sounds (likely due to high BMI). Cardiovascular: RRR, no murmur, no edema Vessels: no JVD or carotid bruit Abdomen: normal bowel sounds, soft, nontender, no hepatosplenomegaly Musculoskeletal: left BKA, no pitting edema Skin: no rashes, warm and dry normal turgor Neurologic: PERRL, EOMI, accommodation nl, no face palsy, no dysarthria CN's II- XI intact bilaterally and moves all extremities Results & Data Results & Data Vital Signs (Past 12 Hours) Vital Signs Temp Pulse Pulse Resp BP Pulse Ox Pulse Ox 03/04/25 12:07 36.6 C 83 18 133/76 92 03/04/25 08:19 03/04/25 08:00 90 03/04/25 07:58 36.8 C 87 20 144/80 H 93 03/04/25 07:00 78 03/04/25 03:48 85 19 94 O2 Del Method O2 Del Method O2 Flow Rate O2 Flow Rate 03/04/25 12:07 Nasal Cannula 2.0 03/04/25 08:19 Nasal Cannula 2 03/04/25 08:00 Nasal Cannula 2 03/04/25 07:58 Nasal Cannula 2.0 03/04/25 07:00 03/04/25 03:48 3 (1) CAD (coronary artery disease) Coronary Disease-Associated Artery/Lesion type: [place] artery [place] vs. transplanted heart: [place] heart Associated angina: without angina Qualified Code(s): I25.10 - Atherosclerotic heart disease of [place] coronary artery without angina pectoris
[2025-03-05 02:54] LABS: Base Excess VBG 5.6 mEq/L; HCO3 VBG 33 mmol/L; Oxygen Saturation VBG 92.3 %; PCO2 VBG 58 mmHg (38-50); PO2 VBG 67 mmHg; pH VBG 7.36 (7.36-7.41)
[2025-03-05] MEDS: MAGNESIUM SULFATE / D5W 1 GM/100 ML BAG IV ONE (03:09)
[2025-03-05 03:14] LABS: BUN Creatinine Ratio 37.2 (10-20); Calcium 9.3 mg/dl (8.6-10.3); Creatinine Clr Calc Pharmacy 95.2 ml/min; Potassium 3.8 mmol/L (3.5-5.1)
--- NOTE | 2025-03-05 03:38 | XRay Report ---
EXAM: XR chest 1V portable CLINICAL HISTORY: low O2 TECHNIQUE: An X-ray image of the chest is obtained in AP projection. COMPARISON: [id number]. CT /[id number].5.1.2 CR/OBX.5.1.2/OBX.5.1 FINDINGS: Pulmonary Parenchyma: Unchanged bilateral prominent pulmonary vascular markings with bilateral prominent hilar vascular shadows. No evidence of pleural effusion or pleural thickening. Heart and Mediastinum: Apparent cardiomegaly in AP position No mediastinal widening or masses. No hilar or mediastinal lymphadenopathy. Bony Thorax: Bony thorax appears intact without fractures or deformities. Soft Tissues: Soft tissues overlying the chest wall are unremarkable. IMPRESSION: 1. Prominent bilateral pulmonary vascular markings and hilar vascular shadows. Please correlate clinically with congestion. 2. No significant interval change compared to the last studies Electronically signed by Kevin Tucker 03-05-2025 03:38 AM
[2025-03-05] MEDS: ALBUT/IPRATROP 3MG/0.5MG NEB 3 ML VIAL NEB STA (04:42)
--- NOTE | 2025-03-05 09:39 | Nephrology Progress Note ---
Date of Service March 05, 2025 Assessment & Plan (1) PASHA (acute kidney injury): Plan: recurrent w/ diuresis nonoliguric stage I bordering on stage II acute kidney injury, prerenal acute kidney injury is certainly possible though he may well prove to have ischemic ATN. Baseline creatinine 1.2 which is his where he was on admission. Peaked at 2.1 on 02/27; slow but acceptable uptick to 1.5 today. 16 L negative on the admission and also status post obligate exposure to IV contrast on presentation 02/25 with interval diuresis also obligate. UA most c/w mild volume depletion though some tubular dysfunction evident as well. ->>>>Continue to hold today spironolactone, torsemide and let renal function/volume status equilibrate >>tomorrow or day after suggest lower torsemide dose such as 30 mg daily w/ appropriate K supplement -daily basic metabolic panel -no indication for discussion of renal replacement therapy -strict intake and output to continue -cont low Na diet -ordered daily standing weights 02/27; 152.5 kg on 03/02, 147.8 on 03/02, 152.3 03/02 -FR 1.8L liberalized d/t pt concerns to 2.2L on 03/01 and on 03/02 FR lifted d/t pt complaints after reinforcing this is very much against medical advice; continue to educate/support pt and chart intake/output strictly -losartan, imdur, terazosin spironolactone, amlodipine all on hold as is torsemide he is for hospital d/c today >d/c on torsemide 20 mg daily, spironolactone 12.5 mg daily -hold amlodipine and losartan at d/c -defer to hospitalist on need for imdur or terazosin or not - would hold if feasible clinically -d/c on low sodium diet -suggest STANDING weight AM /per HF protocol 3X weekly at rehab and back to daily at home after d/c -suggest admitting service at rehab monitor BMP wed/ x 3 wks -[facility] d/c appt w/ me in 2-4 wks w/ bmp w/in 3 days of appt Care coordinated w/ Dr Reese in person and via TText re d/c recs above; we are in agreement. (2) Acute on chronic diastolic heart failure: Plan: not likely to tolerate holding diuretics for long. hgb 11.8; no acute issue w/ anemia HTN had been well controlled 02/28 then up again but not crazily high. >>consider diuretics as above (3) Acute and chronic respiratory failure with hypercapnia: Plan: using bipap here -cont to encourage bipap use Admission and Anticipated Discharge Date Admission Date: February 25, 2025 Subjective under evaluation for rehab; less thirsty. breathing remains short at times; no edema Review of Systems 2 Review of Systems: All systems reviewed & are unremarkable except as noted in Subjective Physical Exam 2 Constitutional: well developed (sitting up on side of bed on O2 NC), well nourished and + morbidly obese; no acute distress Eyes: EOM intact bilaterally ENMT: Mouth: + dry oral mucous membranes and + edentulous Respiratory: normal respiratory effort Auscultation: + diminished lung sounds Cardiovascular: Rate/Rhythm: regular rate ( Heart tones distant) and regular rhythm Extremities: + edema (trace distal LE) Gastrointestinal (Abdomen): Inspection/Auscultation: normal bowel sounds P ercussion/Palpation: abdomen soft; abdomen nontender Musculoskeletal: Extremities: strength 5/5 throughout and + leg foreshortened ( left BKA) Skin: no rashes, warm and dry Psychiatric: Orientation: alert and oriented x 3 Results & Data Vital Signs (Past 12 Hours) Vital Signs Temp Pulse Pulse Resp BP Pulse Ox Pulse Ox 03/05/25 08:00 97 03/05/25 07:28 36.5 C 78 18 133/70 95 03/05/25 07:00 80 03/05/25 04:43 83 23 99 03/05/25 02:28 36.7 C 88 22 170/99 H 97 03/05/25 02:15 87 22 95 03/05/25 01:59 61 L 03/04/25 23:04 86 18 93 03/04/25 23:00 85 03/04/25 22:42 36.6 C 86 20 130/72 94 O2 Del Method O2 Del Method O2 Flow Rate O2 Flow Rate FiO2 03/05/25 08:00 Nasal Cannula 3 03/05/25 07:28 Nasal Cannula 2.0 03/05/25 07:00 03/05/25 04:43 BiPAP 50 03/05/25 02:28 BiPAP 50 05/19/25 02:15 50 03/05/25 01:59 Nasal CPAP 2 03/04/25 23:04 3 03/04/25 23:00 03/04/25 22:42 Nasal Cannula 2 Laboratory Results 03/01/25 07:08 03/05/25 02:43
[2025-03-05 12:30] VITALS: BP 134/78; RESP 19; TEMP 97.5; O2SAT 94
--- NOTE | 2025-03-05 13:27 | Pharmacy Report ---
Pharmacy Glycemic Short Note 2 - Date of Service March 05, 2025 - Glycemic Short BSG Results (Last 24 hours): 03/04/25 03/04/25 03/05/25 16:23 20:06 02:43 Glucose 262 H POC Glucose 88 133 H 03/05/25 03/05/25 07:25 11:19 Glucose POC Glucose 224 H 154 H OUTPATIENT ANTIDIABETIC REGIMEN: * Omnipod insulin pump- dosing per last DM visit, December 2024: * Basal rate: 2.8 units/hr * Carb ratio: 3 * Sensitivity factor: 9 * Metformin 500 mg ER PO qAM A1c = 10.9% (12/23/24) ASSESSMENT: 03/05/25: * BSGs are improving with insulin adjustments. Fasting BSG remains elevated. * Slight adjustments to Novolog parameters made this morning for better control throughout the day. 03/03/25: * Blood sugar trend continues w/ highs in AM and pre-lunch * Basal increased yesterday and fasting blood sugar improved from 252 -> 197 mg/dL * Will further tighten AM parameters today 03/01/25 * BSGs [phone] mg/dL yesterday with 182 units of insulin (100 units of basal + 61 units of prandial/correctional) * Fasting 257 mg/dL this morning- will adjust PM scale * Tighten Novolog parameter in AM starting tomorrow as BSG remained elevated today, PASHA improved 02/27/25: * Blood sugars elevated yesterday, ranging 132-313 mg/dL * Received 142 units of insulin (80 units of basal and 62 units of bolus) * Fasting blood sugar elevated again this morning so will increase basal * Blood sugar trend has been elevated during the day w/ significant improvement at HS * Of note, SCr continues to trend up (1.23 -> 1.59 -> 2.11 mg/dL), will need to monitor for possible insulin accumulation 02/26/25: * Blood sugars labile over past 24 hours, ranging 120->300 mg/dL * Received 141 units of insulin (70 units of basal and 71 units of prandial/correctional bolus/IV insulin) * Hyperglycemic at lunch today, but confirmed with nurse that patient had uncovered late breakfast ~10 AM * Will hold off on aggressive changes at this time since not covered appropriately 02/25/25: * Bry is T2DM that is known to the pharmacy glycemic management team from previous admissions. 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 * Pharmacy consulted for transition to SQ basal + bolus insulin with severe hyperglycemia. hand tufter confirms that insulin pump was removed in ED. * Will base insulin doses on home usage as well as past admission data PLAN FOR INPATIENT GLYCEMIC CONTROL: * Hold outpatient oral diabetes medications * Basal insulin * Lantus 100 units SC qAM * Lantus 40/60/80 units, per scale, SC HS * Bolus insulin * NovoLog per scale ACHS or Q6hrs while NPO * Goal Range: Low 110 mg/dL - High 140 mg/dL at 0730; 120-160 mg/dL at 1130, 1630, 2100 * Correction Factor: 8 mg/dL/unit with breakfast only, 20 mg/dL/unit with lunch, dinner and at HS * Nutritional / Prandial insulin per carb ratio of 1 unit per 1 grams CHO consumed at breakfast only, 1 unit per 3 grams CHO consumed at lunch, dinner and HS
--- NOTE | 2025-03-05 14:01 | Discharge Summary ---
Date of Service March 05, 2025 Admission HPI Per Admitting Provider History obtained from chart review, interview with the patient and discussion with ED provider Past medical history of type 2 diabetes mellitus on insulin pump, hyperlipidemia, COPD, DAMION not on CPAP, hypertension, CAD, chronic diastolic heart failure, morbid obesity, GERD, [employer] [place] tooth disease, history of BKA on the left side, history of DVT, history of pancreatitis, history of diabetic foot ulcer Last cardiac cath on September 2024 which 0% proximal LAD, 50% mid LAD, 100% diagonal branch vessel occlusion, 40% mid circumflex, 40% obtuse marginal vessel stenosis, normal right coronary artery Last echocardiogram in December 2024 showed EF of 55 to 60% with grade 1 diastolic dysfunction. Last follow-up with cardiology in January 31, 2024; torsemide was increased to bid due to presence of peripheral edema. Patient presents to the hospital with complaints of chest pain which started around 3:30 AM; reports that it radiated down both arm and also reported shortness of breath with it. Patient's chest pain resolved after he is received aspirin and nitroglycerin tabs. In the ED, patient was found to be hypoxic to SpO2 of around 70% in room air. Chest x-ray showed cardiomegaly and pulmonary edema. CTA chest does not show PE; shows pulmonary edema as well. Admission Exam Per Admitting Provider Constitutional: Sleepy; awakable by voice Respiratory: Bilateral basilar crackles present Cardiovascular: RRR, no murmur, no edema Vessels: no JVD or carotid bruit Abdomen: normal bowel sounds, soft, nontender, no hepatosplenomegaly Musculoskeletal: left BKA, 2 + pitting edema Skin: no rashes, warm and dry normal turgor Neurologic: PERRL, EOMI, accommodation nl, no face palsy, no dysarthria CN's II- XI intact bilaterally and moves all extremities Principal Diagnosis Acute hypoxic respiratory failure Acute on chronic diastolic heart failure Acute kidney injury Discharge Exam Constitutional: Awake alert oriented x 3. Not in distress. On 2 L nasal cannula oxygen. Obese class III. Chest: Bilateral decreased breath sounds (likely due to high BMI). Cardiovascular: RRR, no murmur, no edema Vessels: no JVD or carotid bruit Abdomen: normal bowel sounds, soft, nontender, no hepatosplenomegaly Musculoskeletal: left BKA, no pitting edema Skin: no rashes, warm and dry normal turgor Neurologic: PERRL, EOMI, accommodation nl, no face palsy, no dysarthria CN's II- XI intact bilaterally and moves all extremities Discharge Data Allergies Allergy/AdvReac Type Severity Reaction Status Date / Time cefaclor [From Ceclor] Allergy Unknown childhood Verified 11/14/24 12:17 allergy ? Cephalosporins Allergy Unknown Unknown Verified 11/14/24 12:17 empagliflozin AdvReac Unknown put me Verified 11/14/24 12:17 [From Jardiance] into ketoacidosis? NSAIDS (Non-Steroidal AdvReac Unknown use with Verified 11/14/24 12:17 Anti-Inflamma caution : hx esophagus damage Consultations 02/25/25 07:40 ED Decision to Admit Stat 02/25/25 08:07 Consult Cardiology Routine 02/27/25 08:17 Consult Nephrology Routine Ordered Studies 02/25/25 06:30 CT angio chest PE protocol Stat 02/25/25 15:42 CT Abd and Pelvis [CT abd pelvis IV con only] Urgent Hospital Course (1) CAD (coronary artery disease): (2) Noncompliance with CPAP treatment: (3) Acute on chronic diastolic heart failure: Plan 49 yo male was managed for the following: Acute hypoxic respiratory failure Acute on chronic diastolic heart failure Patient presents to the hospital with chest pain with radiation to both arms; found to be hypoxic to 70% in room air Chest x-ray and CTA chest consistent with pulmonary edema On torsemide twice daily; questionable compliance to spironolactone Last echocardiogram in December 2024 showed EF of 55 to 60% with grade 1 diastolic dysfunction. Patient was admitted to telemetry floor; was started on BiPAP with improvement in oxygenation. He was also diuresed with IV Lasix 40 mg twice a day. Creatinine up trended to 2.11; at which point diuretics and antihypertensives were held. Wean off oxygen as tolerated c/w torsemide at 20 mg daily, nephro assisting w/ diuresis. Pt to f/u w/ nephrology closely on dc. f/u w/ cardio on dc. Acute kidney injury Patient's creatinine up trended to 2.11 from 1.23 on admission on 02/27. Suspect likely related with hypoxia and change in blood pressure Nephrology evaled, diuretics as above. Creatinine has been labile. close f/u on labs as OP. Chest pain History of CAD Last cardiac cath on September 2024 which 50% proximal LAD, 50% mid LAD, 100% diagonal branch vessel occlusion, 40% mid circumflex, 40% obtuse marginal vessel stenosis, normal right coronary artery High-sensitivity troponin troponin x 3 negative EKG reviewed by cardiology; no significant ST or T wave changes Monitor for recurrence of chest pain Continue aspirin, Lipitor. Metoprolol dose increased to 150 mg twice daily Type 2 DM II A1C 10.2% 12/2024 glycemic pharmacy discontinue insulin pump, on sc insulin while inpatient DAMION- coninue on bipap while inpatient when sleeping. pt non compliant, explained the importance of bpap and long/short term consequences of non compliance multiple times. he did try partially for last 2 nights, encouraged him to continue to wear BPAP HS and prn. Hypertension- BP meds optimized. Tobacco use disorder- current use of tobacco; smoking cessation advised. DVT lovenox Bid Full code Patient is being discharged to SNF with following instructions at the point of discharge: Follow-up with your primary care physician within a week time and likely you will need labs CBC/CMP/magnesium/phosphorus. Maintain fluid restriction of about 1.8 L/day, maintain low-sodium diet of less than 2 g/day. Recommend weight loss. As discussed at the bedside, maintain compliance with your BPAP HS and prn to prevent long and short term complications. Your cardiac/renal medications has been optimized. Continue with torsemide 20 mg daily and Aldactone 12.5 mg daily, hold amlodipine and losartan. Continue with BMP monitoring Wednesday and for 3 weeks, coordinate with your PCP office to set up the test. Follow-up with nephrology in about 2 weeks time upon discharge with blood test BMP within 3 days of appointment. Follow up with cardiology in 2-4 weeks. Take your medications as prescribed. Please make sure that you are able to get your medications today by calling your pharmacy before you leave the hospital so that your treatment continuity is not broken. please note the above document was generated using voice recognition software. It may contain grammatical, syntax or spelling errors. Any formal questions or concerns about the content, text or information contained within the body of this dictation should be directly addressed to the provider for clarification Home Health Attestation I certify that this patient is under my care and that I, or a physicians lucho osorio working with me, had a face to-face encounter that meets the home health [id number] encounter requirements with this patient. The encounter with the patient was in whole, or in part, for the following medical condition, which is the primary reason for home health care (list medical condition): I certify that, based on my findings, the following services are medically necessary home health services: My clinical findings support the need for the above services because: Further, I certify that my clinical findings support that this patient is homebound (i.e. absences from home require considerable and taxing effort and are for medical reasons or sikhism services or infrequently or of short duration when for other reasons) because: Certification for Home Health Services: Based on the above findings, I certify that this patient is confined to the home and needs intermittent long-term care, physical therapy and/or speech therapy or continues to need occupational therapy. The patient is under my care, and I have initiated the establishment of the plan of care. This patient will be followed by a physician who will periodically review the plan of care. Total Time Total Time Spent Total Time Spent (In Minutes): 50 Discharge Plan Discharge Items Patient Disposition: Transfer Care Home Fac Reason For Visit: CHF Discharge Diagnosis: Acute hypoxic respiratory failure Acute on chronic diastolic heart failure Acute kidney injury Condition on Discharge: Critical Activity: Resume your previous activity Non-emergency contact: Primary Care Provider Call non-emergency contact if: you have any medication questions Follow-up/Referrals: Velasquez Valencia MD [Primary Care Provider] - Diet: Carb Consistent or DM2 Fluids: 1800ml (7 cups) Addtl Attending Provider Instructions: Follow-up with your primary care physician within a week time and likely you will need labs CBC/CMP/magnesium/phosphorus. Maintain fluid restriction of about 1.8 L/day, maintain low-sodium diet of less than 2 g/day. Recommend weight loss. As discussed at the bedside, maintain compliance with your BPAP HS and prn to prevent long and short term complications. Your cardiac/renal medications has been optimized. Continue with torsemide 20 mg daily and Aldactone 12.5 mg daily, hold amlodipine and losartan. Continue with BMP monitoring Wednesday and for 3 weeks, coordinate with your PCP office to set up the test. Follow-up with nephrology in about 2 weeks time upon discharge with blood test BMP within 3 days of appointment. Follow up with cardiology in 2-4 weeks. Take your medications as prescribed. Please make sure that you are able to get your medications today by calling your pharmacy before you leave the hospital so that your treatment continuity is not broken. Pending Studies at Discharge: No Stand-Alone Forms: My [facility] Skilled Items Patient informed of condition?: Yes DNR: No Discharge Level of Care: Skilled Communicable Disease: No Discharge Prognosis: Stable Lines: None Urinary Catheter: No Medications and DC Order Prescriptions: New metoprolol succinate 50 mg Tablet Extended Release 24 Hr 150 mg PO BID Qty: 180 0RF Continued dicyclomine 10 mg capsule 10 mg PO QID PRN (Reason: Diarrhea) haloperidol 1 mg tablet 1 mg PO QAM PRN (Reason: gastroparesis symptoms) aspirin 81 mg tablet,delayed release (DR/EC) 81 mg PO QAM metformin 500 mg tablet extended release 24 hr 500 mg PO QAM isosorbide mononitrate 60 mg Tablet Extended Release 24 Hr 60 mg PO QAM Qty: 30 0RF docusate sodium 100 mg Capsule 100 mg PO BID PRN (Reason: constipation) Qty: 20 0RF simethicone [Infants Gas Relief] 40 mg/0.6 mL Drops,Suspension 80 mg PO Q6H PRN (Reason: abdominal distention) Qty: 30 0RF atorvastatin 20 mg tablet 20 mg PO HS 30 Days Qty: 30 1RF terazosin 1 mg capsule 1 mg PO HS 30 Days Qty: 30 1RF omeprazole 40 mg capsule,delayed release(DR/EC) 40 mg PO DAILYBB 30 Days Qty: 30 1RF famotidine 20 mg tablet 20 mg PO HS 30 Days Qty: 30 1RF Changed spironolactone 25 mg tablet 12.5 mg PO DAILY Qty: 15 0RF torsemide 20 mg tablet 20 mg PO QAM Qty: 30 0RF Held amlodipine [Norvasc] 5 mg Tablet 5 mg PO QAM Qty: 30 0RF Hold Instructions: Resume on 04/04/25. Hold amlodipine until further evaluation/instruction from your nephrology in about 2 weeks of discharge. losartan 50 mg tablet 50 mg PO BID 30 Days Qty: 30 1RF Hold Instructions: Resume on 04/02/25. Hold losartan until further evaluation/instruction from your nephrology in about 2 weeks of discharge. Discontinued metoprolol succinate 25 mg tablet extended release 24 hr 25 mg PO BID Qty: 60 0RF metoprolol succinate 100 mg tablet extended release 24 hr 100 mg PO BID Discharge Orders: Discharge Order (Routine); Ordered 03/05/25 Ordered By: Ashley Reese Admission Data Admit Date/Time: 02/25/25 08:07 Attending Provider: Ashley Reese Admit Provider: Ryan Gilbert Primary Care Provider: Velasquez Valencia Other Providers: Ryan Gilbert; Viktoriya Bartlett; Amorita,[facility]; [facility]; [facility],
[2025-03-05 14:55] VITALS: PULSE 86
== END 2025-03-05 15:00 | DRG 291 ==
LOC: ED 04:41 → SUATTDRO 08:07 → 2S 08:07

== ENCOUNTER 2025-09-22 14:36 | Inpatient (IN) ==
--- NOTE | 2025-09-22 15:29 | Emergency Department Note ---
Impression & Plan Acute on chronic respiratory failure with hypoxia and hypercapnia, Chronic anemia, Chronic hyperglycemia ED Provider Note NAME: ROBERT BARAJAS Jr AGE: 49 SEX: M : 1975 ARRIVES VIA: Walk-In INFORMANT: Patient, ED PROVIDER(S): Doug Lemons DO CHIEF COMPLAINT: abdominal pain, shoulder pain HPI: This is a 49-year-old male with the PMHx of chronic hypoxemic hypercapnic respiratory failure, DAMION, COPD, IDDM2, hypertension, hyperlipidemia, atypical chest pain, paroxysmal atrial fibrillation, and tobacco use disorder presenting to [facility] for further evaluation of multiple complaints. Patient states that he is having severe abdominal pain. He states this feels like it is in the soft tissue and skin. Patient states he is also having left posterior shoulder pain. No trauma. Patient states that he feels mildly short of breath. He states that abdomen pain intermittently radiates into his chest causing some chest discomfort. They deny fever or chills. No cough or congestion. They deny nausea and vomiting. No urinary complaints. No recent changes in bowel movements. Patient states he supposed to wear oxygen at home. He states he has BPAP machine but is having trouble with the mask fitting appropriately. He is still troubleshooting this as an outpatient. Patient denies recent changes in medications or OTC supplements. Patient offers no other complaints, today. ADDITIONAL HISTORY OBTAINED: Per HPI Chronic Medical/Social Conditions Affecting Care: Per HPI PAST MEDICAL HISTORY: See Below PAST SURGICAL HISTORY: See Below FAMILY HISTORY: See Below SOCIAL HISTORY: See Below HOME MEDICATIONS: See Below ALLERGIES: See Below VITALS: See Below PHYSICAL EXAMINATION: GENERAL: Sitting up in bed, alert, chronically ill appearing, well nourished, no distress, non-toxic, obese EYE EXAM: normal conjunctiva. OROPHARYNX: no exudate, no erythema, lips, buccal mucosa, and tongue normal and mucous membranes are dry NECK: supple, no nuchal rigidity, no adenopathy, non-tender LUNGS: Poor air movement in all lung thomas. Normal chest wall mechanics HEART: no murmurs, regular rate, regular rhythm ABDOMEN: abdomen soft, non-tender, no masses, no rebound or guarding. BACK: Back is symmetrical on inspection and there is no deformity, no midline tenderness, no CVA tenderness. SKIN: no rashes and no bruising UPPER EXTREMITIES: upper extremities are grossly normal. LOWER EXTREMITIES: No pitting edema. NEURO EXAM: Normal sensorium, GCS 15, normal speech, no gross weakness of arms, no gross weakness of legs. MEDICAL DECISION MAKING: Differential diagnoses includes but not limited to appendicitis, bowel obstruction, diverticulitis, malignancy, nephrolithiasis, gastroenteritis, ACS, PNA, pancreatitis, hepatobiliary disease, UTI In summary, this is a 49 year old male who presented with abdominal and shoulder pain. Differential as above. Nursing notes and pertinent past medical records reviewed. Vital signs reviewed and the patient is intermittently hypoxic but otherwise afebrile and hemodynamically stable. History and presentation revealed complex medical history. Poor access to care. Patient is noncompliant with some of his medications as well as his BPAP. Physical examination revealed as above. As a result of my initial evaluation, IV access was established and the patient was placed on CCRM. Therapeutics ordered include IV Fentanyl. Will proceed with CT imaging of the abdomen/pelvis for further evaluation of possible intra-abdominal pathology that could be causing the patient's symptoms. Diagnostics interpreted by me include EKG and cardiac monitoring as listed below: -Cardiac Monitoring: An order was placed for continuous cardiac monitoring. The monitor shows a rate of 80-90s with regular rhythm. -ECG: Normal sinus rhythm at a ventricular rate of [address] segment changes to suggest STEMI. Poor baseline and artifact on this EKG. There is an incomplete right bundle branch block present. Patient completed laboratory studies and imaging. CXR independently interpreted by me reveals no evidence of focal consolidation to suggest pna. No large pneumothorax or pleural effusion. No obvious displaced rib fracture. X-rays of the shoulder revealed no acute fracture or dislocation. Minimal degenerative changes. Results independently interpreted by me are Mild anemia that is stable as compared to prior. No significant leukocytosis. Kidney function electrolytes are largely stable. Does have hyperglycemia without anion gap metabolic acidosis. Increased BUN to creatinine ratio. Do suspect he is mildly dehydrated based on physical examination and labs. Lactate was normal. LFTs and lipase are normal. Normal procalcitonin. Patient had normal troponin. VBG shows chronic CO2 retention with compensation. Patient did become hypoxic throughout his course in the emergency department and was placed on low-flow nasal cannula. The patient was managed with IV pain medications and fluid resuscitation. Patient failed to improve. Further relief of his pain ordered by Protonix and IV Tylenol. I discussed reassuring workup with the patient. He does have acute on chronic hypoxemic hypercapnic respiratory failure. This abdominal pain is intractable. Patient does not feel safe going home. He states that his BPAP does not work. He states he does not have access to oxygen. He Concern for his safety. Patient states that he needs to be admitted. Ultimately, the decision was made to admit the patient for acute on chronic hypoxemic hypercapnic respiratory failure with intractable abdominal pain. It was recommended to admit this patient at 1816. I discussed the case with the hospitalist service via telephone/Tiger[employer] and they are agreeable to admit the patient to their services. Based on the above, including the patient's age, coexisting illnesses, labs, imaging, and exam findings the decision to treat as an inpatient. I discussed the patient with the hospitalist team who recommended admission to their services. They received the medications, treatments, interventions indicated above and their condition remained guarded. I discussed my findings with the patient and their family and they understand and agree with the treatment plan. All patient / family questions were answered to their satisfaction. BiPAP was ordered while in the emergency department. This should improve the patient's acute on chronic hypoxemic hypercapnic respiratory failure. Alessio to the bedside following admission given significant oxygen desaturations. Repositioning of the patient's mask as well as his position in bed improved oxygenation status. Does not appear the patient was placed on BPAP. At this time, I have recommended respiratory therapy place him on BPAP. Patient was placed 20/5 FiO2 40%. Improvement in respiratory status and hemodynamics. He still intermittently has episodes of hypoxia on BPAP. Will need close monitoring. He responds briskly to minimal stimulation and his hypoxia corrects without further intervention. Consults/Care Managements Discussions: Per [facility] ER treatment provided: See above Procedures:none Critical Care: I have personally spent 30 minutes of critical care time in direct management of this patient. This includes bedside care, interpretation of diagnostic studies, and testing, discussion with consultants, patient, and family members, and other require inpatient management activities. This 30 minutes is in excess of all separately billable procedures. The chart was completed utilizing [employer] voice recognition software. Grammatical errors, random word insertions, pronoun errors, and incomplete sentences are an occasional consequence of this system due to software limitations, ambient noise, and hardware issues. Any formal questions or concerns about the content, text, or information contained within the body of this dictation should be directly addressed to the physician for clarification. Past Med/Surg History Problem List (Updated 09/22/25 @ 23:13 by Doug Lemons DO) Chronic hyperglycemia (Acute) Chronic anemia (Acute) Acute on chronic respiratory failure with hypoxia and hypercapnia (Acute) Tobacco abuse counseling Chronic heart failure with preserved ejection fraction Obesity hypoventilation syndrome Acute on chronic respiratory failure with hypoxia and hypercapnia Respiratory acidosis Acute bronchitis due to Rhinovirus (Acute) Abdominal pain (Acute) Acute hypoxemic respiratory failure (Acute) Hyperglycemia due to diabetes mellitus (Acute) Atypical chest pain (Acute) Hypertensive heart disease ASCVD (arteriosclerotic cardiovascular disease) Acute on chronic diastolic heart failure Edema of left lower leg Hypoxia (Acute) Heart palpitations (Acute) Chest pain (Acute) AF (paroxysmal atrial fibrillation) (Acute) CAD (coronary artery disease) Bronchitis HTN (hypertension) (Acute) Chest pain (Acute) Abnormal nuclear cardiac imaging test Dyslipidemia, goal LDL below 70 Acute hyperglycemia (Acute) Abnormal stress test (Acute) Precordial chest pain (Acute) HTN, goal below 130/80 Diarrhea (Acute) Chest pain (Acute) Generalized pain (Acute) Hyperglycemia due to type 2 diabetes mellitus (Acute) Chest pain (Acute) Chest pain Atypical chest pain Noncompliance with CPAP treatment Hypomagnesemia (Acute) Elevated lactic acid level (Acute) PASHA (acute kidney injury) (Acute) Abdominal pain (Acute) Acute and chronic respiratory failure with hypercapnia Shortness of breath (Acute) Charcot's joint arthropathy in type 2 diabetes mellitus Left ankle pain Osteonecrosis (Acute) Acute pain of left lower extremity (Acute) Sleep apnea (Acute) Multiple pulmonary nodules determined by computed tomography of lung Hypoxia COPD exacerbation (Acute) Multiple risk factors for coronary artery disease Chest pain at rest Hypertensive urgency Abnormal chest CT HTN (hypertension) (Chronic) Diabetes mellitus, type 2 (Chronic) Nicotine dependence (Chronic) Depression (Chronic) Gastroparesis (Chronic) History of nasal septoplasty 09/25/21-Dr. Garcia Morbid obesity (Acute) Chronic respiratory failure with hypercapnia Diabetic peripheral neuropathy associated with type 2 diabetes mellitus Loss of protective sensation of skin of foot Epigastric abdominal pain Colon polyp Medical History Chronic diastolic heart failure Volume overload Arthritis Low magnesium level History of RSV infection & flu a few months ago. Tachycardia chronic high heart rate - unknown etiology - a few months ago increased dose of metoprolol. Rhinovirus dx May 23 [facility] & another illness dx - ? name of /antibiotic and inhalers for. feeling better: only symptom : sore throat. COPD (chronic obstructive pulmonary disease) ? dx of Peripheral neuropathy Diabetes mellitus, type 2 Hypertension Tobacco use Restrictive lung disease Elevated liver function tests History of DVT (deep vein thrombosis) "years ago">no known cause Tussive syncope "occurred only one time, no recent issues" Esophagitis Osteoarthritis Hx of pancreatitis resolved GERD (gastroesophageal reflux disease) Cardiac murmur A CHILD Erectile dysfunction MRSA (methicillin resistant Staphylococcus aureus) carrier over 2 yrs ago>"not sure where it was" Intellectual disability Obstructive sleep apnea cpap Obesity IBS (irritable bowel syndrome) History of ventricular tachycardia "nonsustained" Surgical History History of appendectomy 02/10/2023 History of reduction of nasal fracture 09/25/21-Dr. Garcia Status post incision and drainage LLE History of shoulder surgery right-2019 H/O foot surgery LEFT-2018 History of arthroscopy LEFT [id number] History of esophagogastroduodenoscopy (EGD) History of colonoscopy with most recent attempt: failed prep. Told would need a 2 day prep prior to colonoscopy in Sep 2023. History of tooth extraction History of tonsillectomy and adenoidectomy 1979 Family History Brother Family history of diabetes mellitus Environmental allergies Asthma Mother Family history of diabetes mellitus Hypertension Environmental allergies Father Family history of diabetes mellitus Hypertension Heart disease Grandfather (Paternal) Lung cancer smoker Aunt Bleeding disorder Other No family history of adverse response to anesthesia Social History Smoking Status: Current every day smoker Tobacco Type: Cigarettes Age Started Using Tobacco: 14; Cigarettes Per Day: 20; Second Hand Exposure: No; Do You Dip or Chew Tobacco: No; Hx Alcohol Use: No Hx Substance Use: No Preferred Language: Lithuanian Communication Ability: Effective Internet Marketing Strategist Required: No Beliefs That Will Affect Care: None marital status: / marital status details: single at this time Current Living Situation: Family Current Living Situation Comment: lives with family and stays with his girlfriend. 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 Cephalosporins Allergy Unknown SEE COMMENT Verified 09/22/25 17:14 pioglitazone [From Actos] Allergy Unknown ON Verified 09/22/25 17:14 [facility] empagliflozin AdvReac Severe put me Verified 09/22/25 17:14 [From KitchIn] into ketoacidosis? NSAIDS (Non-Steroidal AdvReac Unknown use with Verified 09/22/25 17:14 Anti-Inflamma caution : hx esophagus damage Home Meds Home Medications Medication Instructions Recorded Confirmed metformin 500 mg tablet,extended 1,000 mg PO BID 12/21/24 09/22/25 release 24 hr insulin aspart U-100 100 unit/mL 0 unit continuous subcutaneous 03/08/25 09/22/25 subcutaneous solution (Novolog infusion CONTINOUS U-100 Insulin aspart) spironolactone 25 mg tablet 25 mg PO DAILY 07/19/25 09/22/25 insulin glargine 100 unit/mL 40 unit subcut BID 09/22/25 09/22/25 subcutaneous solution (Lantus U-100 Insulin) metoprolol succinate 100 mg 100 mg PO BID 09/22/25 09/22/25 tablet,extended release 24 hr Previous Rx's Medication Instructions Recorded terazosin 1 mg capsule 1 mg PO HS 30 days #30 caps 09/17/24 Results & Data (ED) Vital Signs Vital Signs - 24 hr 09/22/25 14:51 09/22/25 15:30 09/22/25 15:53 Temperature 36.8 C Temperature Source Temporal Artery Scan Pulse Rate 97 H 90 Pulse Rate [Apical] Respiratory Rate 18 19 Respiratory Effort / Characteristics Non-Labored Respiratory Depth Normal Respiratory Pattern Regular Blood Pressure 181/82 H Blood Pressure [Right Arm] Blood Pressure Mean 115 Blood Pressure Mean [Right Arm] Blood Pressure Position [Right Arm] Pulse Oximetry 87 L 87 L 92 Oxygen Delivery Method Room Air Nasal Cannula Nasal Cannula Oxygen Flow Rate 0 2 Sepsis Recent Fever Within 48 Hours No Sepsis New/Unexplained Change in Mental Status N/A Sepsis Action Taken by Nursing No Action Required Oxygen Flow Rate - Titration 2 Pulse Oximetry Post Tiitration 93 09/22/25 16:08 09/22/25 16:30 09/22/25 18:00 Temperature Temperature Source Pulse Rate 86 Pulse Rate [Apical] 91 H 88 Respiratory Rate 19 19 Respiratory Effort / Characteristics Non-Labored Spontaneous Non-Labored Spontaneous Respiratory Depth Normal Normal Respiratory Pattern Regular Blood Pressure Blood Pressure [Right Arm] 176/102 H 126/63 Blood Pressure Mean Blood Pressure Mean [Right Arm] 126 84 Blood Pressure Position [Right Arm] Semi-fowlers Pulse Oximetry 91 91 Oxygen Delivery Method Nasal Cannula Nasal Cannula Oxygen Flow Rate 2 2 Sepsis Recent Fever Within 48 Hours Sepsis New/Unexplained Change in Mental Status Sepsis Action Taken by Nursing Oxygen Flow Rate - Titration Pulse Oximetry Post Tiitration 09/22/25 19:00 09/22/25 19:45 09/22/25 20:00 Temperature Temperature Source Pulse Rate 90 89 Pulse Rate [Apical] 90 Respiratory Rate 16 16 Respiratory Effort / Characteristics Spontaneous Non-Labored Spontaneous Respiratory Depth Normal Normal Respiratory Pattern Regular Regular Blood Pressure Blood Pressure [Right Arm] 154/99 H Blood Pressure Mean Blood Pressure Mean [Right Arm] 117 Blood Pressure Position [Right Arm] Lying Pulse Oximetry 91 95 Oxygen Delivery Method Nasal Cannula Oxygen Flow Rate 2 5 Sepsis Recent Fever Within 48 Hours Sepsis New/Unexplained Change in Mental Status Sepsis Action Taken by Nursing Oxygen Flow Rate - Titration Pulse Oximetry Post Tiitration Laboratory Data 09/22/25 15:23 09/22/25 15:23 Lab Results 09/22/25 09/22/25 09/22/25 Range/Units 15:23 17:32 19:57 WBC 8.02 (4.8-10.8) K/ul RBC 5.26 (4.70-6.10) M/uL Hgb 13.1 L (14.0-18.0) g/dL Hct 42.9 (42.0-52.0) % MCV 81.6 (80.0-100.0) fL MCH 24.9 L (25.0-34.0) pg MCHC 30.5 L (32.0-36.0) g/dL RDW Std Deviation 49.3 H (36.4-46.3) fL RDW Coeff of Abiodun 16.9 H (11.5-14.5) % Plt Count 286 (130-400) K/uL MPV 9.4 (9.4-12.4) fL Immature Gran % (Auto) 1.5 % Neut % (Auto) 60.2 % Lymph % (Auto) 22.8 % Hill % (Auto) 10.5 % Eos % (Auto) 4.1 % Baso % (Auto) 0.9 % Neut # (Auto) 4.83 (1.40-6.50) K/uL Lymph # (Auto) 1.83 (1.20-3.40) K/uL Hill # (Auto) 0.84 H (0.11-0.59) K/uL Eos # (Auto) 0.33 (0.00-0.50) K/uL Baso # (Auto) 0.07 (0.00-0.20) K/uL Immature Gran # (Auto) 0.12 (0.01-0.20) K/uL VBG pH 7.39 (7.36-7.41) VBG pCO2 59 H (38-50) mmHg VBG pO2 46 mmHg VBG HCO3 36 mmol/L VBG O2 Saturation 75.2 % VBG Base Excess 8.6 mEq/L Sodium 140 (136-145) mmol/L Potassium 3.7 (3.5-5.1) mmol/L Chloride 98 (98-107) mmol/L Carbon Dioxide 34 H (21-32) mmol/L Anion Gap 8 (3-11) BUN 30 H (6-23) mg/dl Creatinine 0.84 (0.6-1.4) mg/dl Est Cr Clr Drug Dosing Not Reportable eGFR 105.58 BUN/Creatinine Ratio 35.7 H (10-20) Glucose 301 H* (70-99(Fasting)) mg/dl Lactate 1.3 (0.4-2.0) mmol/L Calcium 9.3 (8.6-10.3) mg/dl Total Bilirubin 0.4 (0.2-1.0) mg/dl AST 17 (13-39) U/L ALT 26 (7-52) U/L Alkaline Phosphatase 65 (34-104) U/L Troponin I High Sens 17.7 (0-20) pg/ml Total Protein 6.9 (6.0-8.3) gm/dl Albumin 3.3 L (3.4-5.0) gm/dl Globulin 3.6 (2.5-4.0) gm/dl Albumin/Globulin Ratio 0.9 (0.9-2) Lipase 62 (11-82) U/L Procalcitonin 0.03 (0-0.5) ng/ml Urine Color Yellow Urine Appearance Clear (Clear) Urine pH 5.5 (4.5-7.5) Ur Specific [place] 1.023 (1.000-1.030) Urine Protein 2+ H (Negative) Urine Glucose (UA) 1+ H (Negative) Urine Ketones Negative (Negative) Urine Blood Negative (Negative) Urine Nitrite Negative (Negative) Urine Bilirubin Negative (Negative) Urine Urobilinogen Negative (Negative) Ur Leukocyte Esterase Negative (Negative) Urine WBC (Auto) 0-5 (0-5) /hpf Urine RBC (Auto) 0-2 (0-2) /hpf U Hyaline Cast (Auto) 0-2 (0-2) /lpf U Epithel Cells (Auto) 0-2 (0-2) /hpf Urine Bacteria (Auto) None Seen (None Seen) Urine Comment Administered Medications Enoxaparin Sodium (Enoxaparin Inj 40 Mg/0.4 Ml Syr) 40 mg SQ Q12 [facility] Stop: 10/22/25 21:13 Last Admin: 09/22/25 22:22 Dose: 40 mg Documented By: BRANNON Insulin Aspart (Insulin Aspart Per Unit Charge) 0 units SC ACHS [facility] Stop: 10/22/25 21:13 Last Admin: 09/22/25 22:19 Dose: 5 units Documented By: IDD Co-signed By: TONI Insulin Glargine (Lantus Per Unit Charge) 40 units SQ BID [facility] Stop: 10/22/25 21:13 Last Admin: 09/22/25 22:19 Dose: 40 units Documented By: IDD Co-signed By: TONI Discontinued Medications Fentanyl Citrate (Fentanyl Citrate Pf 100 Mcg/2 Ml Vial) 50 mcg IV NOW ONE Stop: 09/22/25 15:14 Last Admin: 09/22/25 15:38 Dose: 50 mcg Documented By: BRIGHT Acetaminophen (Ofirmev) 1,000 mg in 100 mls @ 400 mls/hr IV NOW STA Stop: 09/22/25 18:31 Last Infusion: 09/22/25 19:55 Dose: Infused Documented By: Admin: 09/22/25 18:41 Dose: 400 mls/hr Documented By: BRIGHT Pantoprazole Sodium (Protonix) 40 mg in 10 mls @ 5 mls/min IV NOW ONE Stop: 09/22/25 18:18 Last Admin: 09/22/25 18:41 Dose: 5 mls/min Documented By: BRIGHT Parenteral Electrolytes (Plasma-Lyte A Ph 7.4) 1,000 mls @ 125 mls/hr IV .Q8H SOPHIA Stop: 09/25/25 18:29 Last Admin: 09/22/25 18:41 Dose: 125 mls/hr Documented By: BRIGHT Ioversol (Optiray 320 125ml) 119 ml IV ONCE ONE Stop: 09/22/25 16:55 Last Admin: 09/22/25 16:55 Dose: 119 ml Documented By: SINGH Miscellaneous (Stop Order - Insulin Pump) 1 each N/A ONE ONE Stop: 09/22/25 21:46 Last Admin: 09/22/25 22:20 Dose: 1 each Documented By: BRANNON Imaging Data Radiologist's Impression: Abdomen/Pelvis CT 09/22/25 15:05 EXAMINATION: CT of the abdomen and pelvis performed after the administration of IV contrast TECHNIQUE: Helical CT images from the lung bases through the symphysis pubis were obtained with contrast. Coronal and sagittal reformatted images were generated at a workstation for further assessment. Dose reduction techniques were achieved by using automatic exposure control and/or adjustment of mA and/or kV according to patient size and/or use of iterative reconstruction technique. COMPARISON: 03/08/2025 HISTORY: Abdominal pain FINDINGS: Lower chest: No consolidation. No pleural effusion or pneumothorax. Liver: No suspicious liver lesions. Portal veins appear patent. Gallbladder: No gallstones. No evidence of acute cholecystitis. Spleen: Normal size. Pancreas: No suspicious pancreatic lesions. The pancreatic duct is not dilated. Adrenal glands: No adrenal nodules. Kidneys: No hydronephrosis or obstructing renal stones. Bladder / Pelvic organs: Unremarkable. Bowel: No bowel obstruction. No abnormal bowel wall thickening. The appendix is unremarkable. Lymph nodes: No retroperitoneal, mesenteric, or pelvic lymphadenopathy. Peritoneum / Retroperitoneum: No free fluid or air within the abdomen. Vessels: No infrarenal aortic aneurysm. Bones and soft tissues: No suspicious lesion in the bones. IMPRESSION: No acute finding in the abdomen or pelvis. No inflammatory change involving the pancreas is identified. Electronically signed by Nba Flood 09-22-2025 5:43 PM Chest X-Ray 09/22/25 15:05 Chest radiograph, one view History: Chest pain Comparison: None Findings: Single AP view of the chest performed. No focal consolidation or pleural effusion. No pneumothorax. The cardiomediastinal silhouette is within normal limits. Normal pulmonary vascularity. No evidence for lymphadenopathy. No visualized bony or soft tissue abnormality. Impression: Normal chest radiograph Electronically signed by Nba Flood 09-22-2025 4:23 PM Shoulder X-Ray 09/22/25 15:13 History: Pain Comparison: None Findings: There is no acute fracture or dislocation. Alignment is anatomic. Joint spaces are well maintained. There is no joint effusion or significant soft tissue swelling. Impression: No acute bony abnormality Electronically signed by Nba Flood 09-22-2025 4:28 PM Discharge Plan Visit Data Chief Complaint: Abdominal Pain Stated Complaint: ABD PAIN, L SHOULDER PAIN ED Provider: Doug Lemons Discharge Problem: Acute on chronic respiratory failure with hypoxia and hypercapnia, Chronic anemia, Chronic hyperglycemia Patient Disposition: Admitted As Inpatient Condition: Serious Discharge Instructions Interventions: ED Discharge Assessment Last Done: 09/22/25 21:14
[2025-09-22 15:52] LABS: Hematocrit (blood only) 42.9 % (42.0-52.0); Hemoglobin 13.1 g/dL (14.0-18.0); Immature Granulocytes # (auto) 0.12 K/uL (0.01-0.20); Immature Granulocytes % (auto) 1.5 %; Mean Corpuscular Hemoglobin 24.9 pg (25.0-34.0); Mean Corpuscular Volume 81.6 fL (80.0-100.0); Platelet Count 286 K/uL (130-400); RDW Standard Deviation 49.3 fL (36.4-46.3); Red Blood Count 5.26 M/uL (4.70-6.10); White Blood Count 8.02 K/ul (4.8-10.8)
[2025-09-22 15:54] LABS: Base Excess VBG 8.6 mEq/L; HCO3 VBG 36 mmol/L; Oxygen Saturation VBG 75.2 %; PCO2 VBG 59 mmHg (38-50); PO2 VBG 46 mmHg; pH VBG 7.39 (7.36-7.41)
[2025-09-22 16:23] LABS: Alanine Aminotransferase 26 U/L (7-52); Albumin Globulin Ratio 0.9 (0.9-2); Albumin Level 3.3 gm/dl (3.4-5.0); Alkaline Phosphatase 65 U/L (34-104); Anion Gap 8 (3-11); Bilirubin,Total 0.4 mg/dl (0.2-1.0); Blood Urea Nitrogen 30 mg/dl (6-23); Calcium 9.3 mg/dl (8.6-10.3); Carbon Dioxide 34 mmol/L (21-32); Chloride 98 mmol/L (98-107); Globulin 3.6 gm/dl (2.5-4.0); Glucose 301 mg/dl (70-99(Fasting)); Lipase 62 U/L (11-82); Potassium 3.7 mmol/L (3.5-5.1); Sodium 140 mmol/L (136-145); Total Protein 6.9 gm/dl (6.0-8.3)
--- NOTE | 2025-09-22 16:24 | XRay Report ---
Chest radiograph, one view History: Chest pain Comparison: None Findings: Single AP view of the chest performed. No focal consolidation or pleural effusion. No pneumothorax. The cardiomediastinal silhouette is within normal limits. Normal pulmonary vascularity. No evidence for lymphadenopathy. No visualized bony or soft tissue abnormality. Impression: Normal chest radiograph Electronically signed by Nba Flood 09-22-2025 4:23 PM
--- NOTE | 2025-09-22 16:28 | XRay Report ---
History: Pain Comparison: None Findings: There is no acute fracture or dislocation. Alignment is anatomic. Joint spaces are well maintained. There is no joint effusion or significant soft tissue swelling. Impression: No acute bony abnormality Electronically signed by Nba Flood 09-22-2025 4:28 PM
[2025-09-22] MEDS: OPTIRAY 320 125ml IV ONE (16:55)
--- NOTE | 2025-09-22 17:43 | CT Scan Report ---
EXAMINATION: CT of the abdomen and pelvis performed after the administration of IV contrast TECHNIQUE: Helical CT images from the lung bases through the symphysis pubis were obtained with contrast. Coronal and sagittal reformatted images were generated at a workstation for further assessment. Dose reduction techniques were achieved by using automatic exposure control and/or adjustment of mA and/or kV according to patient size and/or use of iterative reconstruction technique. COMPARISON: 03/08/2025 HISTORY: Abdominal pain FINDINGS: Lower chest: No consolidation. No pleural effusion or pneumothorax. Liver: No suspicious liver lesions. Portal veins appear patent. Gallbladder: No gallstones. No evidence of acute cholecystitis. Spleen: Normal size. Pancreas: No suspicious pancreatic lesions. The pancreatic duct is not dilated. Adrenal glands: No adrenal nodules. Kidneys: No hydronephrosis or obstructing renal stones. Bladder / Pelvic organs: Unremarkable. Bowel: No bowel obstruction. No abnormal bowel wall thickening. The appendix is unremarkable. Lymph nodes: No retroperitoneal, mesenteric, or pelvic lymphadenopathy. Peritoneum / Retroperitoneum: No free fluid or air within the abdomen. Vessels: No infrarenal aortic aneurysm. Bones and soft tissues: No suspicious lesion in the bones. IMPRESSION: No acute finding in the abdomen or pelvis. No inflammatory change involving the pancreas is identified. Electronically signed by Nba Flood 09-22-2025 5:43 PM
[2025-09-22] MEDS: ACETAMINOPHEN 1,000 MG/100 ML VIAL IV STA (18:41)
[2025-09-22] MEDS: PANTOprazole 40 MG/10 ML SYR IV ONE (18:41)
[2025-09-22] MEDS: PLASMA-LYTE A 1,000 ML IV SCH (18:41)
[2025-09-22 20:28] LABS: Appearance Urine Clear (Clear); Bacteria Urine Automated None Seen (None Seen); Cast Urine Automated 0-2 /lpf (0-2); Epithelial Cell Urine Auto 0-2 /hpf (0-2); Glucose Urine UA 1+ (Negative); RBC Urine Automated 0-2 /hpf (0-2); WBC Urine Automated 0-5 /hpf (0-5)
[2025-09-22] MEDS ORDERED: ACETAMINOPHEN 325 MG TAB PO PRN (21:14)
[2025-09-22] MEDS ORDERED: HYDROmorphone INJ 0.5 MG/0.5 ML SYR IV PRN (21:14)
[2025-09-22] MEDS ORDERED: GLUCOSE 40% GEL 15 GM TUBE PO PRN (21:14)
[2025-09-22] MEDS ORDERED: GLUCAGON FOR INJ 1 MG VIAL SQ PRN (21:14)
[2025-09-22] MEDS ORDERED: CARBOHYDRATES FOR HYPOGLYCEMIA PO PRN (21:14)
[2025-09-22] MEDS ORDERED: NITROGLYCERIN SL 0.4 MG/TAB TAB SL PRN (21:14)
[2025-09-22] MEDS ORDERED: ACETAMINOPHEN 1,000 MG/100 ML VIAL IV PRN (21:14)
[2025-09-22] MEDS ORDERED: DEXTROSE 50% 50 ML SYRINGE IV PRN (21:14)
[2025-09-22] MEDS ORDERED: GLUCOSE 10 TAB/TUBE PO PRN (21:14)
[2025-09-22] MEDS ORDERED: POLYETHYLENE (MIRALAX) 17 GM PACK PO PRN (21:14)
[2025-09-22] MEDS ORDERED: PHARMACY GLYCEMIC MGMT CONSULT PRN (21:14)
[2025-09-22] MEDS ORDERED: Patient's HEIGHT &/or WEIGHT Needed SCH (21:30)
[2025-09-22] MEDS: INSULIN ASPART PER UNIT CHARGE SC SCH (22:19)
[2025-09-22] MEDS: LANTUS PER UNIT CHARGE SQ SCH (22:19)
[2025-09-22] MEDS: [UNRECOGNIZED DRUG - REMARK] ONE (22:20)
[2025-09-22] MEDS: ENOXAPARIN INJ 40 MG/0.4 ML SYR SQ SCH (22:22)
--- NOTE | 2025-09-22 23:28 | History & Physical Report ---
Date of Service September 22, 2025 Assessment & Plan (1) Acute on chronic respiratory failure with hypoxia and hypercapnia: Plan: 49-year-old male with past medical history significant for type 2 diabetes, diabetic polyneuropathy, diabetes causing vascular disease, hyperlipidemia, COPD, obstructive sleep apnea, hypertension, CAD, chronic diastolic CHF, morbid obesity, gastroparesis, irritable bowel syndrome, GERD, constipation, CKD, degenerative disc disease, charcoaled Raegan tooth disease, status post left BKA, history of DVT, history of pancreatitis comes in because of abdominal pain. Patient states abdominal pain is going on for last couple of months. Pain is located around periumbilical region and radiates to back. Denies any nausea or vomiting. Says he has constipation and diarrhea from his irritable bowel syndrome. Patient states micturating okay. No fevers. Has left shoulder pain going on for last couple of months. Appetite is okay. Has cough and brings phlegm. No headache. No runny nose or sore throat. Patient states he is not u sing his BiPAP for about a month because it is not working properly and is waiting for a new set up to come. Patient was saturating 87% in the ER and was placed on BiPAP. States he uses his insulin pump but currently did not put it on. Hemodynamics are okay. In the ER he was found to have urinary retention. Acute on chronic respite failure with hypoxia and hypercapnia In Er was 87% room air hx of copd, DAMION Patient supposed to use BiPAP nightly. Noncompliant with BiPAP. VBG okay Currently on BiPAP saturating okay States does not use oxygen during daytime. Last admit he was requiring 2lts oxygen with exertion No leukocytosis. Lactic acid is okay at 1.3. Procalcitonin negative Chest x-ray okay No obvious wheezing on exam Nebs as needed two step prior to discharge Will monitor Abdominal pain Lipase okay UA is okay CT abdomen pelvis no acute findings IV Protonix for now Will monitor Urinary retention Status post Shearer Will consult urology. Left shoulder pain Going on for last couple of months X-ray no acute findings Obstructive sleep apnea States not using BiPAP for last 1 month. Patient states it is not working. States he is getting new mask with new set up Social service help prior to discharge Diabetes States he uses insulin pump and also long-acting insulin Currently seems he did not put on his insulin pump Continue on Lantus Sliding scale Glycemic pharmacy consult Chronic diastolic CHF Spironolactone Last admission he was also on torsemide Will monitor Hypertension On metoprolol succinate, terazosin and spironolactone Last admission he was also on Imdur Will monitor Morbid obesity Counseling Coronary artery disease Moderate nonobstructive CAD with total occlusion of diagonal branch on beta-ryan currently not on aspirin and statin and isosorbide mononitrate DVT prophylaxis Lovenox Disposition Telemetry Full code. History of Present Illness Chief Complaint: Abdominal pain Primary Care Provider: Velasquez Valencia MD 49-year-old male with past medical history significant for type 2 diabetes, diabetic polyneuropathy, diabetes causing vascular disease, hyperlipidemia, COPD, obstructive sleep apnea, hypertension, CAD, chronic diastolic CHF, morbid obesity, gastroparesis, irritable bowel syndrome, GERD, constipation, CKD, degenerative disc disease, charcoaled Raegan tooth disease, status post left BKA, history of DVT, history of pancreatitis comes in because of abdominal pain. Patient states abdominal pain is going on for last couple of months. Pain is located around periumbilical region and radiates to back. Denies any nausea or vomiting. Says he has constipation and diarrhea from his irritable bowel syndrome. Patient states micturating okay. No fevers. Has left shoulder pain going on for last couple of months. Appetite is okay. Has cough and brings ph legm. No headache. No runny nose or sore throat. Patient states he is not using his BiPAP for about a month because it is not working properly and is waiting for a new set up to come. Patient was saturating 87% in the ER and was placed on BiPAP. States he uses his insulin pump but currently did not put it on. Hemodynamics are okay. In the ER he was found to have urinary retention. Past medical history. As mentioned above. Past surgical history. Right shoulder arthroscopy. Colonoscopy. EGD. EGD with endoscopic ultrasound. Injection lumbosacral spine. Knee arthroscopy. Tonsillectomy. Social history. . Smoked 1 pack a day for 33 years. No alcohol use. Currently no drug use as per [employer]. Used to smoke marijuana in the past. Family history. Father had COPD. Hypertension. Mother has hypertension. Diabetes. Dyslipidemia. Maternal grandmother had diabetes. Paternal grandmother had diabetes. Allergies Allergy/AdvReac Type Severity Reaction Status Date / Time cefaclor [From Ceclor] Allergy Unknown childhood Verified 09/22/25 17:14 allergy ? Cephalosporins Allergy Unknown SEE COMMENT Verified 09/22/25 17:14 pioglitazone [From Actos] Allergy Unknown ON Verified 09/22/25 17:14 [employer] MED LIST empagliflozin AdvReac Severe put me Verified 09/22/25 17:14 [From Jardiance] into ketoacidosis? NSAIDS (Non-Steroidal AdvReac Unknown use with Verified 09/22/25 17:14 Anti-Inflamma caution : hx esophagus damage Home Medications Medication Instructions Recorded Confirmed Type terazosin 1 mg capsule 1 mg PO HS 30 days #30 caps 09/17/24 09/22/25 Rx metformin 500 mg tablet,extended 1,000 mg PO BID 12/21/24 09/22/25 History release 24 hr insulin aspart U-100 100 unit/mL 0 unit continuous subcutaneous 03/08/25 09/22/25 History subcutaneous solution (Novolog infusion CONTINOUS U-100 Insulin aspart) spironolactone 25 mg tablet 25 mg PO DAILY 07/19/25 09/22/25 History insulin glargine 100 unit/mL 40 unit subcut BID 09/22/25 09/22/25 History subcutaneous solution (Lantus U-100 Insulin) metoprolol succinate 100 mg 100 mg PO BID 09/22/25 09/22/25 History tablet,extended release 24 hr Past Med/Surg History Problem List (Updated 09/23/25 @ 00:07 by Background Rea) Chronic hyperglycemia (Acute) Chronic anemia (Acute) Acute on chronic respiratory failure with hypoxia and hypercapnia (Acute) Tobacco abuse counseling Chronic heart failure with preserved ejection fraction Obesity hypoventilation syndrome Acute on chronic respiratory failure with hypoxia and hypercapnia Respiratory acidosis Acute bronchitis due to Rhinovirus (Acute) Abdominal pain (Acute) Acute hypoxemic respiratory failure (Acute) Hyperglycemia due to diabetes mellitus (Acute) Atypical chest pain (Acute) Hypertensive heart disease ASCVD (arteriosclerotic cardiovascular disease) Acute on chronic diastolic heart failure Edema of left lower leg Hypoxia (Acute) Heart palpitations (Acute) Chest pain (Acute) AF (paroxysmal atrial fibrillation) (Acute) CAD (coronary artery disease) Bronchitis HTN (hypertension) (Acute) Chest pain (Acute) Abnormal nuclear cardiac imaging test Dyslipidemia, goal LDL below 70 Acute hyperglycemia (Acute) Abnormal stress test (Acute) Precordial chest pain (Acute) HTN, goal below 130/80 Diarrhea (Acute) Chest pain (Acute) Generalized pain (Acute) Hyperglycemia due to type 2 diabetes mellitus (Acute) Chest pain (Acute) Chest pain Atypical chest pain Noncompliance with CPAP treatment Hypomagnesemia (Acute) Elevated lactic acid level (Acute) PASHA (acute kidney injury) (Acute) Abdominal pain (Acute) Acute and chronic respiratory failure with hypercapnia Shortness of breath (Acute) Charcot's joint arthropathy in type 2 diabetes mellitus Left ankle pain Osteonecrosis (Acute) Acute pain of left lower extremity (Acute) Sleep apnea (Acute) Multiple pulmonary nodules determined by computed tomography of lung Hypoxia COPD exacerbation (Acute) Multiple risk factors for coronary artery disease Chest pain at rest Hypertensive urgency Abnormal chest CT HTN (hypertension) (Chronic) Diabetes mellitus, type 2 (Chronic) Nicotine dependence (Chronic) Depression (Chronic) Gastroparesis (Chronic) History of nasal septoplasty 09/25/21-Dr. Garcia Morbid obesity (Acute) Chronic respiratory failure with hypercapnia Diabetic peripheral neuropathy associated with type 2 diabetes mellitus Loss of protective sensation of skin of foot Epigastric abdominal pain Colon polyp Medical History Chronic diastolic heart failure Volume overload Arthritis Low magnesium level History of RSV infection & flu a few months ago. Tachycardia chronic high heart rate - unknown etiology - a few months ago increased dose of metoprolol. Rhinovirus dx May 23 [facility] & another illness dx - ? name of /antibiotic and inhalers for. feeling better: only symptom : sore throat. COPD (chronic obstructive pulmonary disease) ? dx of Peripheral neuropathy Diabetes mellitus, type 2 Hypertension Tobacco use Restrictive lung disease Elevated liver function tests History of DVT (deep vein thrombosis) "years ago">no known cause Tussive syncope "occurred only one time, no recent issues" Esophagitis Osteoarthritis Hx of pancreatitis resolved GERD (gastroesophageal reflux disease) Cardiac murmur A CHILD Erectile dysfunction MRSA (methicillin resistant Staphylococcus aureus) carrier over 2 yrs ago>"not sure where it was" Intellectual disability Obstructive sleep apnea cpap Obesity IBS (irritable bowel syndrome) History of ventricular tachycardia "nonsustained" Surgical History History of appendectomy 02/10/2023 History of reduction of nasal fracture 09/25/21-Dr. Garcia Status post incision and drainage LLE History of shoulder surgery right-2019 H/O foot surgery LEFT-2018 History of arthroscopy LEFT [id number] History of esophagogastroduodenoscopy (EGD) History of colonoscopy with most recent attempt: failed prep. Told would need a 2 day prep prior to colonoscopy in Sep 2023. History of tooth extraction History of tonsillectomy and adenoidectomy 1979 Family History Brother Family history of diabetes mellitus Environmental allergies Asthma Mother Family history of diabetes mellitus Hypertension Environmental allergies Father Family history of diabetes mellitus Hypertension Heart disease Grandfather (Paternal) Lung cancer smoker Aunt Bleeding disorder Other No family history of adverse response to anesthesia Social History Smoking Status: Unknown if ever smoked Tobacco Type: Cigarettes Age Started Using Tobacco: 14; Cigarettes Per Day: 20; Second Hand Exposure: No; Do You Dip or Chew Tobacco: No; Hx Alcohol Use: No Hx Substance Use: No Preferred Language: [place] Communication Ability: Effective Desulfurizer Hand Required: No Beliefs That Will Affect Care: None marital status: / marital status details: single at this time Current Living Situation: Family Current Living Situation Comment: lives with family and stays with his girlfriend. 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 ENT- oropharynx clear Neck- supple, no JVD. Lungs- clear to auscultation no wheezing or crackles Heart- regular rhythm; no murmur, no gallop. Abdomen- normal bowel sounds, soft, nontender, no distension Extremities- s/p left BKA, mild lower ext edema Neuro- alert, oriented PERRL, no facial palsy; no dysarthria; moves extremities Results & Data Results & Data Vital Signs (Past 12 Hours) Vital Signs Temp Pulse Pulse Resp BP BP Pulse Ox 09/22/25 20:00 89 09/22/25 19:00 90 16 154/99 H 91 09/22/25 18:00 88 19 126/63 91 09/22/25 16:30 91 H 19 176/102 H 91 09/22/25 16:08 86 09/22/25 15:53 90 19 92 09/22/25 15:30 87 L 09/22/25 14:51 36.8 C 97 H 18 181/82 H 87 L O2 Del Method O2 Flow Rate 09/22/25 20:00 09/22/25 19:00 Nasal Cannula 2 09/22/25 18:00 Nasal Cannula 2 09/22/25 16:30 Nasal Cannula 2 09/22/25 16:08 09/22/25 15:53 Nasal Cannula 2 09/22/25 15:30 Nasal Cannula 0 09/22/25 14:51 Room Air Diagnostic Findings Laboratory Results WBC 8.02 K/ul (4.8-10.8) 09/22/25 15:23 RBC 5.26 M/uL (4.70-6.10) 09/22/25 15:23 Hgb 13.1 g/dL (14.0-18.0) L 09/22/25 15:23 Hct 42.9 % (42.0-52.0) 09/22/25 15:23 MCV 81.6 fL (80.0-100.0) 09/22/25 15:23 MCH 24.9 pg (25.0-34.0) L 09/22/25 15:23 MCHC 30.5 g/dL (32.0-36.0) L 09/22/25 15:23 RDW Std Deviation 49.3 fL (36.4-46.3) H 09/22/25 15:23 RDW Coeff of Abiodun 16.9 % (11.5-14.5) H 09/22/25 15:23 Plt Count 286 K/uL (130-400) 09/22/25 15:23 MPV 9.4 fL (9.4-12.4) 09/22/25 15:23 Immature Gran % (Auto) 1.5 % 09/22/25 15:23 Neut % (Auto) 60.2 % 09/22/25 15:23 Lymph % (Auto) 22.8 % 09/22/25 15:23 Rooks % (Auto) 10.5 % 09/22/25 15:23 Eos % (Auto) 4.1 % 09/22/25 15:23 Baso % (Auto) 0.9 % 09/22/25 15:23 Neut # (Auto) 4.83 K/uL (1.40-6.50) 09/22/25 15:23 Lymph # (Auto) 1.83 K/uL (1.20-3.40) 09/22/25 15:23 Rooks # (Auto) 0.84 K/uL (0.11-0.59) H 09/22/25 15:23 Eos # (Auto) 0.33 K/uL (0.00-0.50) 09/22/25 15:23 Baso # (Auto) 0.07 K/uL (0.00-0.20) 09/22/25 15:23 Immature Gran # (Auto) 0.12 K/uL (0.01-0.20) 09/22/25 15:23 VBG pH 7.39 (7.36-7.41) 09/22/25 15:23 VBG pCO2 59 mmHg (38-50) H 09/22/25 15:23 VBG pO2 46 mmHg 09/22/25 15:23 VBG HCO3 36 mmol/L 09/22/25 15:23 VBG O2 Saturation 75.2 % 09/22/25 15:23 VBG Base Excess 8.6 mEq/L 09/22/25 15:23 Sodium 140 mmol/L (136-145) 09/22/25 15:23 Potassium 3.7 mmol/L (3.5-5.1) 09/22/25 15:23 Chloride 98 mmol/L (98-107) 09/22/25 15: Carbon Dioxide 34 mmol/L (21-32) H 09/22/25 15:23 Anion Gap 8 (3-11) 09/22/25 15:23 BUN 30 mg/dl (6-23) H 09/22/25 15:23 Creatinine 0.84 mg/dl (0.6-1.4) 09/22/25 15:23 Est Cr Clr Drug Dosing Not Reportable 09/22/25 15:23 eGFR 105.58 09/22/25 15:23 BUN/Creatinine Ratio 35.7 (10-20) H 09/22/25 15:23 Glucose 301 mg/dl (70-99(Fasting)) H* 09/22/25 15:23 POC Glucose 221 mg/dl (70-99) H 09/22/25 22:02 Lactate 1.3 mmol/L (0.4-2.0) 09/22/25 17:32 Calcium 9.3 mg/dl (8.6-10.3) 09/22/25 15:23 Total Bilirubin 0.4 mg/dl (0.2-1.0) 09/22/25 15:23 AST 17 U/L (13-39) 09/22/25 15:23 ALT 26 U/L (7-52) 09/22/25 15:23 Alkaline Phosphatase 65 U/L (34-104) 09/22/25 15:23 Troponin I High Sens 17.7 pg/ml (0-20) 09/22/25 15:23 Total Protein 6.9 gm/dl (6.0-8.3) 09/22/25 15:23 Albumin 3.3 gm/dl (3.4-5.0) L 09/22/25 15:23 Globulin 3.6 gm/dl (2.5-4.0) 09/22/25 15:23 Albumin/Globulin Ratio 0.9 (0.9-2) 09/22/25 15:23 Lipase 62 U/L (11-82) 09/22/25 15:23 Procalcitonin 0.03 ng/ml (0-0.5) 09/22/25 15:23 Urine Color Yellow 09/22/25 19:57 Urine Appearance Clear (Clear) 09/22/25 19:57 Urine pH 5.5 (4.5-7.5) 09/22/25 19:57 Ur Specific [place] 1.023 (1.000-1.030) 09/22/25 19:57 Urine Protein 2+ (Negative) H 09/22/25 19:57 Urine Glucose (UA) 1+ (Negative) H 09/22/25 19:57 Urine Ketones Negative (Negative) 09/22/25 19:57 Urine Blood Negative (Negative) 09/22/25 19:57 Urine Nitrite Negative (Negative) 09/22/25 19:57 Urine Bilirubin Negative (Negative) 09/22/25 19:57 Urine Urobilinogen Negative (Negative) 09/22/25 19:57 Ur Leukocyte Esterase Negative (Negative) 09/22/25 19:57 Urine WBC (Auto) 0-5 /hpf (0-5) 09/22/25 19:57 Urine RBC (Auto) 0-2 /hpf (0-2) 09/22/25 19:57 U Hyaline Cast (Auto) 0-2 /lpf (0-2) 09/22/25 19:57 U Epithel Cells (Auto) 0-2 /hpf (0-2) 09/22/25 19:57 Urine Bacteria (Auto) None Seen (None Seen) 09/22/25 19:57 Urine Comment 09/22/25 19:57 Impressions Abdomen/Pelvis CT 09/22/25 15:05 EXAMINATION: CT of the abdomen and pelvis performed after the administration of IV contrast TECHNIQUE: Helical CT images from the lung bases through the symphysis pubis were obtained with contrast. Coronal and sagittal reformatted images were generated at a workstation for further assessment. Dose reduction techniques were achieved by using automatic exposure control and/or adjustment of mA and/or kV according to patient size and/or use of iterative reconstruction technique. COMPARISON: 03/08/2025 HISTORY: Abdominal pain FINDINGS: Lower chest: No consolidation. No pleural effusion or pneumothorax. Liver: No suspicious liver lesions. Portal veins appear patent. Gallbladder: No gallstones. No evidence of acute cholecystitis. Spleen: Normal size. Pancreas: No suspicious pancreatic lesions. The pancreatic duct is not dilated. Adrenal glands: No adrenal nodules. Kidneys: No hydronephrosis or obstructing renal stones. Bladder / Pelvic organs: Unremarkable. Bowel: No bowel obstruction. No abnormal bowel wall thickening. The appendix is unremarkable. Lymph nodes: No retroperitoneal, mesenteric, or pelvic lymphadenopathy. Peritoneum / Retroperitoneum: No free fluid or air within the abdomen. Vessels: No infrarenal aortic aneurysm. Bones and soft tissues: No suspicious lesion in the bones. IMPRESSION: No acute finding in the abdomen or pelvis. No inflammatory change involving the pancreas is identified. Electronically signed by Nba Flood 09-22-2025 5:43 PM Chest X-Ray 09/22/25 15:05 Chest radiograph, one view History: Chest pain Comparison: None Findings: Single AP view of the chest performed. No focal consolidation or pleural effusion. No pneumothorax. The cardiomediastinal silhouette is within normal limits. Normal pulmonary vascularity. No evidence for lymphadenopathy. No visualized bony or soft tissue abnormality. Impression: Normal chest radiograph Electronically signed by Nba Flood 09-22-2025 4:23 PM Shoulder X-Ray 09/22/25 15:13 History: Pain Comparison: None Findings: There is no acute fracture or dislocation. Alignment is anatomic. Joint spaces are well maintained. There is no joint effusion or significant soft tissue swelling. Impression: No acute bony abnormality Electronically signed by Nba Flood 09-22-2025 4:28 PM ECG Additional Comments: ECG. Normal sinus rhythm rate of 94. Incomplete right bundle branch block. Nonspecific T wave abnormality in inferior leads. QTc 485 Code Status & VTE Plan VTE Prophylaxis Plan VTE Prophylaxis will be ordered: Yes
[2025-09-23] MEDS ORDERED: METOPROLOL TARTRATE 1 MG/ML VIAL IV STA (00:23)
[2025-09-23] MEDS: TERAZOSIN HCL 1 MG CAP PO SCH (00:25)
[2025-09-23] MEDS: METOPROLOL SUCC 50MG EXT REL TAB PO SCH (00:25)
[2025-09-23 01:19] LABS: Base Excess VBG 8.4 mEq/L; HCO3 VBG 36 mmol/L; Oxygen Saturation VBG 87.0 %; PCO2 VBG 64 mmHg (38-50); PO2 VBG 54 mmHg; pH VBG 7.36 (7.36-7.41)
[2025-09-23] MEDS: INSULIN ASPART PER UNIT CHARGE SC ONE (03:10)
[2025-09-23] MEDS: METOPROLOL TARTRATE 1 MG/ML VIAL IV STA (03:11)
[2025-09-23 05:15] LABS: Hematocrit (blood only) 45.5 % (42.0-52.0); Hemoglobin 13.4 g/dL (14.0-18.0); Immature Granulocytes # (auto) 0.08 K/uL (0.01-0.20); Immature Granulocytes % (auto) 1.1 %; Mean Corpuscular Hemoglobin 24.9 pg (25.0-34.0); Mean Corpuscular Volume 84.4 fL (80.0-100.0); Platelet Count 295 K/uL (130-400); RDW Standard Deviation 51.6 fL (36.4-46.3); Red Blood Count 5.39 M/uL (4.70-6.10); White Blood Count 7.26 K/ul (4.8-10.8)
[2025-09-23 05:32] LABS: Anion Gap 7.0 (3-11); Blood Urea Nitrogen 27.0 mg/dl (6-23); Calcium 8.9 mg/dl (8.6-10.3); Carbon Dioxide 34.0 mmol/L (21-32); Chloride 100.0 mmol/L (98-107); Creatinine Clr Calc Pharmacy 160.7 ml/min; Glucose 199.0 mg/dl (70-99(Fasting)); Magnesium 1.7 mg/dl (1.7-2.4); Potassium 4.2 mmol/L (3.5-5.1); Sodium 141.0 mmol/L (136-145)
[2025-09-23 07:50] LABS: Hemoglobin A1C 11.4 % (4.5-5.6)
--- NOTE | 2025-09-23 07:58 | Pharmacy Report ---
Pharmacy Glycemic Short Note 2 - Date of Service September 23, 2025 - Glycemic Short BSG Results (Last 24 hours): 09/22/25 09/22/25 09/23/25 15:23 22:02 01:08 Glucose 301 H* POC Glucose 221 H 201 H 09/23/25 09/23/25 09/23/25 03:01 04:43 07:17 Glucose 199 H POC Glucose 192 H 193 H OUTPATIENT ANTIDIABETIC REGIMEN: * Metformin 1g PO BID * Lantus 40 units BID * Omnipod - not connected at this time (Settings from Jul 2025: 2.8 units/hr, 67.2 units/day + ICR 3 and ISF 9) * A1c 11.4% 09/23/25 ASSESSMENT: * 49 yo M admitted with Acute on chronic respiratory failure with hypoxia and hypercapnia, T2DM. Patient required high doses of insulin (170+units/day) when admitted in July on IV Steroids. No steroids ordered at this time. * Patient very drowsy this morning and unable to clarify what he is doing with insulin at home at this time. * Basal bolus insulin while inpatient. PLAN FOR INPATIENT GLYCEMIC CONTROL: * Hold outpatient diabetes medications * Basal insulin * Lantus 40 units SQ BID * Bolus insulin * NovoLog per scale ACHS or Q6hrs while NPO * Goal Range: Low 110 mg/dL - High 140 mg/dL * Correction Factor: 15 mg/dL/unit * Nutritional / Prandial insulin per carb ratio of 1 unit per 5 grams CHO consumed
--- NOTE | 2025-09-23 09:00 | Urology Consultation ---
Date of Consultation September 23, 2025 Assessment & Plan (1) Urinary retention: Plan 49-year-old male with multiple medical comorbidities who was admitted due to acute on chronic respiratory failure with hypoxia and hypercapnia. CT scan was performed which I dependently reviewed which shows a distended bladder and a Shearer catheter was placed and urology was consulted. Labs showed white blood cell count of 7.2, creatinine of 0.9 which appears to be roughly baseline, and the UA was completely negative. As I was unable to get any history in the patient, per the chart he voided 1 L and then had a PVR of slightly over 500 and a catheter was placed. He denies any urinary symptoms. Patient can have void trial prior to discharge based on clinical course. If patient fails void trial, catheter can be replaced and let urology know as we can schedule appropriate outpatient follow-up No further urologic intervention necessary. Urology to sign off. History of Present Illness Attending Physician: Maxwell Ruiz MD History of Present Illness 49-year-old male with multiple medical comorbidities who was admitted due to acute on chronic respiratory failure with hypoxia and hypercapnia. CT scan was performed which I dependently reviewed which shows a distended bladder and a Shearer catheter was placed and urology was consulted. Labs showed white blood cell count of 7.2, creatinine of 0.9 which appears to be roughly baseline, and the UA was completely negative. Patient is a poor historian but denied any urinary symptoms. States he only had a catheter previously when he had a leg amputation. He denied any urinary symptoms. Unable to get any other further history from him. Per nursing notes, patient needed help using a urinal and output was 1 L. He reported burning with urination and they bladder scanned him he had a residual of 534. Shearer catheter was placed at this time. Allergies Allergy/AdvReac Type Severity Reaction Status Date / Time cefaclor [From Ceclor] Allergy Unknown childhood Verified 09/22/25 17:14 allergy ? Cephalosporins Allergy Unknown SEE COMMENT Verified 09/22/25 17:14 pioglitazone [From Actos] Allergy Unknown ON Verified 09/22/25 17:14 Maxta MED LIST empagliflozin AdvReac Severe put me Verified 09/22/25 17:14 [From Jardiance] into ketoacidosis? NSAIDS (Non-Steroidal AdvReac Unknown use with Verified 09/22/25 17:14 Anti-Inflamma caution : hx esophagus damage Home Medications Medication Instructions Recorded Confirmed Type terazosin 1 mg capsule 1 mg PO HS 30 days #30 caps 09/17/24 09/22/25 Rx metformin 500 mg tablet,extended 1,000 mg PO BID 12/21/24 09/22/25 History release 24 hr insulin aspart U-100 100 unit/mL 0 unit continuous subcutaneous 03/08/25 09/22/25 History subcutaneous solution (Novolog infusion CONTINOUS U-100 Insulin aspart) spironolactone 25 mg tablet 25 mg PO DAILY 07/19/25 09/22/25 History insulin glargine 100 unit/mL 40 unit subcut BID 09/22/25 09/22/25 History subcutaneous solution (Lantus U-100 Insulin) metoprolol succinate 100 mg 100 mg PO BID 09/22/25 09/22/25 History tablet,extended release 24 hr Patient History Medical History Chronic diastolic heart failure Volume overload Arthritis Low magnesium level History of RSV infection & flu a few months ago. Tachycardia chronic high heart rate - unknown etiology - a few months ago increased dose of metoprolol. Rhinovirus dx May 23 [facility] & another illness dx - ? name of /antibiotic and inhalers for. feeling better: only symptom : sore throat. COPD (chronic obstructive pulmonary disease) ? dx of Peripheral neuropathy Diabetes mellitus, type 2 Hypertension Tobacco use Restrictive lung disease Elevated liver function tests History of DVT (deep vein thrombosis) "years ago">no known cause Tussive syncope "occurred only one time, no recent issues" Esophagitis Osteoarthritis Hx of pancreatitis resolved GERD (gastroesophageal reflux disease) Cardiac murmur A CHILD Erectile dysfunction MRSA (methicillin resistant Staphylococcus aureus) carrier over 2 yrs ago>"not sure where it was" Intellectual disability Obstructive sleep apnea cpap Obesity IBS (irritable bowel syndrome) History of ventricular tachycardia "nonsustained" Surgical History History of appendectomy 02/10/2023 History of reduction of nasal fracture 09/25/21-Dr. Garcia Status post incision and drainage LLE History of shoulder surgery right-2019 H/O foot surgery LEFT-2018 History of arthroscopy LEFT [id number] History of esophagogastroduodenoscopy (EGD) History of colonoscopy with most recent attempt: failed prep. Told would need a 2 day prep prior to colonoscopy in Sep 2023. History of tooth extraction History of tonsillectomy and adenoidectomy 1979 Family History Brother Family history of diabetes mellitus Environmental allergies Asthma Mother Family history of diabetes mellitus Hypertension Environmental allergies Father Family history of diabetes mellitus Hypertension Heart disease Grandfather (Paternal) Lung cancer smoker Aunt Bleeding disorder Other No family history of adverse response to anesthesia Social History Smoking Status: Unknown if ever smoked Tobacco Type: Cigarettes Age Started Using Tobacco: 14; Cigarettes Per Day: 20; Second Hand Exposure: No; Do You Dip or Chew Tobacco: No; Hx Alcohol Use: No Hx Substance Use: No Preferred Language: Italian Communication Ability: Effective Machine Fancy Stitcher Required: No Beliefs That Will Affect Care: None marital status: / marital status details: single at this time Current Living Situation: Family Current Living Situation Comment: lives with family and stays with his girlfriend. 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 other: girlfriend able to assist with dressing changes and care as needed Feels Safe at Home: Yes Safety Concerns: Feels Safe At This Time Diet: diabetic during the past year weight has: remained stable Assistive Devices: None Physical Exam Physical Exam: General: Alert and oriented, no acute distress HEENT: Normocephalic, mucous membranes moist Pulmonary: On BiPAP Abdomen: Nondistended : Shearer catheter draining danny urine Extremities: Moves all 4 spontaneously Neuro: No gross deficits Skin: Warm, dry, no rashes noted Results & Data Vital Signs (Past 12 Hours) Vital Signs Pulse Pulse Resp BP BP Pulse Ox Pulse Ox 09/23/25 07:55 20 96 09/23/25 07:08 99 H 09/23/25 05:00 94 H 17 127/72 95 09/23/25 04:51 09/23/25 04:00 90 20 168/88 H 96 09/23/25 03:11 95 H 155/82 H 09/23/25 02:24 91 H 18 98 09/23/25 01:00 92 H 18 157/74 H 98 09/22/25 23:25 09/22/25 22:52 90 09/22/25 22:00 97 09/22/25 22:00 79 18 113/79 97 O2 Del Method O2 Del Method O2 Flow Rate FiO2 09/23/25 07:55 40 09/23/25 07:08 09/23/25 05:00 BiPAP 40 09/23/25 04:51 BiPAP 40 09/23/25 04:00 BiPAP 40 09/23/25 03:11 09/23/25 02:24 40 09/23/25 01:00 BiPAP 20 09/22/25 23:25 40 09/22/25 22:52 09/22/25 22:00 BiPAP 09/22/25 22:00 BiPAP 20 PG Care Time/CCT Total # of Minutes Spent Total Time Spent with Patient: Total time spent is greater than 50% in coordination of care (as documented) at patient's floor/unit and/or counseling patient: Coding Level of Care Code 72396 IN/OBS CONSULT LVL 3,45M Diagnoses Urinary retention R33.9
[2025-09-23 09:04] LABS: Base Excess VBG 8.4 mEq/L; HCO3 VBG 36 mmol/L; Oxygen Saturation VBG 96.0 %; PCO2 VBG 64 mmHg (38-50); PO2 VBG 82 mmHg; pH VBG 7.36 (7.36-7.41)
--- NOTE | 2025-09-23 09:30 | XRay Report ---
XR chest 1V portable HISTORY: 49 years-old Male on bipap, not improving acute shortness of breath COMPARISON: Chest radiograph 09/22/2025, CT chest July 19, 2025 TECHNIQUE: AP view of the chest FINDINGS: Hypoinflation. Cardiac silhouette is enlarged. Pulmonary vascular congestion with interstitial coarse carmen. Asymmetric right perihilar densities. No pneumothorax or large pleural effusion. Bones appear g rossly intact. IMPRESSION: 1. Cardiomegaly with pulmonary vascular congestion. 2. Asymmetric right perihilar opacities may be secondary to summation density versus a mild pneumonia . ACT 112: Negative or not required by law. The above report was generated using voice recognition software. It may contain grammatical, syntax o r spelling errors. Electronically signed by: Gil Hilliard M.D. 09/23/2025 9:28 AM
[2025-09-23] MEDS: SPIRONOLACTONE 25 MG TAB PO SCH (09:42)
[2025-09-23] MEDS: MAGNESIUM SULFATE / D5W 1 GM/100 ML BAG IV ONE (10:06)
[2025-09-23] MEDS: PANTOprazole 40 MG/10 ML SYR IV SCH (10:07)
--- NOTE | 2025-09-23 10:20 | Hospitalist Progress Note ---
Date of Service September 23, 2025 Assessment & Plan (1) Acute on chronic respiratory failure with hypoxia and hypercapnia: Plan: Per admitting provider w/ addendum: 49-year-old male with past medical history significant for type 2 diabetes, diabetic polyneuropathy, diabetes causing vascular disease, hyperlipidemia, COPD, obstructive sleep apnea, hypertension, CAD, chronic diastolic CHF, morbid obesity, gastroparesis, irritable bowel syndrome, GERD, constipation, CKD, degenerative disc disease, charcoaled Raegan tooth disease, status post left BKA, history of DVT, history of pancreatitis comes in because of abdominal pain. Patient states abdominal pain is going on for last couple of months. Pain is located around periumbilical region and radiates to back. Denies any nausea or vomiting. Says he has constipation and diarrhea from his irritable bowel syndrome. Patient states micturating okay. No fevers. Has left shoulder pain going on for last couple of months. Appetite is okay. Has cough and brings phlegm. No headache. No runny nose or sore throat. Patient states he is not using his BiPAP for about a month because it is not working properly and is waiting for a new set up to come. Patient was saturating 87% in the ER and was placed on BiPAP. States he uses his insulin pump but currently did not put it on. Hemodynamics are okay. In the ER he was found to have urinary retention. Acute on chronic respite failure with hypoxia and hypercapnia In Er was 87% room air hx of copd, DAMION Patient supposed to use BiPAP nightly. Noncompliant with BiPAP. VBG okay Currently on BiPAP saturating okay States does not use oxygen during daytime. Last admit he was requiring 2lts oxygen with exertion No leukocytosis. Lactic acid is okay at 1.3. Procalcitonin negative Chest x-ray okay No obvious wheezing on exam Nebs as needed two step prior to discharge Will monitor 12/7 Pt seen this morning with RN at the bedside in room C10 in ED. Pt on bipap. Opens eyes when prompted for a sec, moves extremities when asked, nods. Otherwise no other response and pt closes his eyes quickly. Per chart review - in ED pt was complaining of abd. pain, received 50 mcg of IV fentanyl, can't see if he received anything else causing his mental status/ res. status this way. Discussed with RT, on Bipap right now -- this is consistent with setting from previous admission when pt was here in July and seen by Pulmonary medicine. 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 Busby, pt was quite somnolent on his exam. Will repeat VBG now, CXR, will obtain CT head, Urine drug screen. Will discuss further with pulm. regarding his acute on chronic hypoxic hypercapnic resp. failure. Abdominal pain Lipase okay UA is okay CT abdomen pelvis no acute findings IV Protonix for now Will monitor Urinary retention Status post [facility] consulted. Left shoulder pain Going on for last couple of months X-ray no acute findings Obstructive sleep apnea States not using BiPAP for last 1 month. Patient states it is not working. States he is getting new mask with new set up Social service help prior to discharge Diabetes States he uses insulin pump and also long-acting insulin Currently seems he did not put on his insulin pump Continue on Lantus Sliding scale Glycemic pharmacy consult Chronic diastolic CHF Spironolactone Last admission he was also on torsemide Will monitor Hypertension On metoprolol succinate, terazosin and spironolactone Last admission he was also on Imdur Will monitor Morbid obesity Counseling Coronary artery disease Moderate nonobstructive CAD with total occlusion of diagonal branch on beta-ryan currently not on aspirin and statin and isosorbide mononitrate DVT prophylaxis Lovenox Disposition Telemetry Full code. Admission and Anticipated Discharge Date Admission Date: September 22, 2025 Subjective Pt seen in follow up Presented for abd. pain Found hypoxic, hypercarbic, was placed on bipap overnight This AM pt very drowsy, still on BiPAP, opens eyes only for brief moment, follows commands such as moves extremities, nods. Pt seen and discussed with RN at the bedside. Discussed w/ RT - on BiPAP since 2:30 AM. Pt does not appear in distress, does not communicate any discomfort or concerns at this time. [facility] catheter was placed overnight. Review of Systems Review of Systems: All systems reviewed & are unremarkable except as noted in Subjective Physical Exam Physical Exam: General- obese M on Bipap Head- atraumatic Eyes- PERRL. Neck- supple Lungs- decreased breath sounds, no wheezing or crackles, on Bipap Heart- regular rhythm; no murmur, no gallop. Abdomen- soft, obese, + some distension, seems nontender Extremities- s/p left BKA, mild lower ext edema Neuro- drowsy, opens eyes, follows commands, moves extremities, nods head only for a brief moment Results & Data Results & Data Vital Signs (Past 12 Hours) Vital Signs Pulse Pulse Resp BP BP Pulse Ox O2 Del Method 09/23/25 07:55 20 96 09/23/25 07:08 99 H 09/23/25 05:00 94 H 17 127/72 95 BiPAP 09/23/25 04:51 BiPAP 09/23/25 04:00 90 20 168/88 H 96 BiPAP 09/23/25 03:11 95 H 155/82 H 09/23/25 02:24 91 H 18 98 09/23/25 01:00 92 H 18 157/74 H 98 BiPAP 09/22/25 23:25 09/22/25 22:52 90 O2 Flow Rate FiO2 09/23/25 07:55 40 09/23/25 07:08 09/23/25 05:00 40 09/23/25 04:51 40 09/23/25 04:00 40 09/23/25 03:11 09/23/25 02:24 40 09/23/25 01:00 20 09/22/25 23:25 40 09/22/25 22:52 Laboratory Results 09/23/25 09/23/25 09/23/25 Range/Units 08:58 07:37 07:17 WBC (4.8-10.8) K/ul RBC (4.70-6.10) M/uL Hgb (14.0-18.0) g/dL Hct (42.0-52.0) % MCV (80.0-100.0) fL MCH (25.0-34.0) pg MCHC (32.0-36.0) g/dL RDW Std Deviation (36.4-46.3) fL RDW Coeff of Abiodun (11.5-14.5) % Plt Count (130-400) K/uL MPV (9.4-12.4) fL Immature Gran % (Auto) % Neut % (Auto) % Lymph % (Auto) % [place] % (Auto) % Eos % (Auto) % Baso % (Auto) % Neut # (Auto) (1.40-6.50) K/uL Lymph # (Auto) (1.20-3.40) K/uL [place] # (Auto) (0.11-0.59) K/uL Eos # (Auto) (0.00-0.50) K/uL Baso # (Auto) (0.00-0.20) K/uL Immature Gran # (Auto) (0.01-0.20) K/uL Absolute Nucleated RBC (0.00-0.12) K/uL Nucleated RBC % (auto) % D-Dimer 510 H* (0-500) ug/L FEU VBG pH 7.36 (7.36-7.41) VBG pCO2 64 H (38-50) mmHg VBG pO2 82 mmHg VBG HCO3 36 mmol/L VBG O2 Saturation 96.0 % VBG Base Excess 8.4 mEq/L Sodium (136-145) mmol/L Potassium (3.5-5.1) mmol/L Chloride (98-107) mmol/L Carbon Dioxide (21-32) mmol/L Anion Gap (3-11) BUN (6-23) mg/dl Creatinine (0.6-1.4) mg/dl Est Cr Clr Drug Dosing eGFR BUN/Creatinine Ratio (10-20) Glucose (70-99(Fasting)) mg/dl POC Glucose 193 H (70-99) mg/dl Estimat Average Glucose mg/dl Hemoglobin A1c (4.5-5.6) % Lactate (0.4-2.0) mmol/L Calcium (8.6-10.3) mg/dl Magnesium (1.7-2.4) mg/dl Total Bilirubin (0.2-1.0) mg/dl AST (13-39) U/L ALT (7-52) U/L Alkaline Phosphatase (34-104) U/L Troponin I High Sens (0-20) pg/ml Total Protein (6.0-8.3) gm/dl Albumin (3.4-5.0) gm/dl Globulin (2.5-4.0) gm/dl Albumin/Globulin Ratio (0.9-2) Lipase (11-82) U/L Procalcitonin (0-0.5) ng/ml Urine Color Urine Appearance (Clear) Urine pH (4.5-7.5) Ur Specific [place] (1.000-1.030) Urine Protein (Negative) Urine Glucose (UA) (Negative) Urine Ketones (Negative) Urine Blood (Negative) Urine Nitrite (Negative) Urine Bilirubin (Negative) Urine Urobilinogen (Negative) Ur Leukocyte Esterase (Negative) Urine WBC (Auto) (0-5) /hpf Urine RBC (Auto) (0-2) /hpf U Hyaline Cast (Auto) (0-2) /lpf U Epithel Cells (Auto) (0-2) /hpf Urine Bacteria (Auto) (None Seen) Urine Comment 09/23/25 09/23/25 09/23/25 Range/Units 04:43 03:01 01:09 WBC 7.26 (4.8-10.8) K/ul RBC 5.39 (4.70-6.10) M/uL Hgb 13.4 L (14.0-18.0) g/dL Hct 45.5 (42.0-52.0) % MCV 84.4 (80.0-100.0) fL MCH 24.9 L (25.0-34.0) pg MCHC 29.5 L (32.0-36.0) g/dL RDW Std Deviation 51.6 H (36.4-46.3) fL RDW Coeff of Abiodun 16.9 H (11.5-14.5) % Plt Count 295 (130-400) K/uL MPV 9.3 L (9.4-12.4) fL Immature Gran % (Auto) 1.1 % Neut % (Auto) 59.1 % Lymph % (Auto) 23.1 % [place] % (Auto) 10.9 % Eos % (Auto) 4.7 % Baso % (Auto) 1.1 % Neut # (Auto) 4.29 (1.40-6.50) K/uL Lymph # (Auto) 1.68 (1.20-3.40) K/uL [place] # (Auto) 0.79 H (0.11-0.59) K/uL Eos # (Auto) 0.34 (0.00-0.50) K/uL Baso # (Auto) 0.08 (0.00-0.20) K/uL Immature Gran # (Auto) 0.08 (0.01-0.20) K/uL Absolute Nucleated RBC 0.02 (0.00-0.12) K/uL Nucleated RBC % (auto) 0.3 % D-Dimer (0-500) ug/L FEU VBG pH 7.36 (7.36-7.41) VBG pCO2 64 H (38-50) mmHg VBG pO2 54 mmHg VBG HCO3 36 mmol/L VBG O2 Saturation 87.0 % VBG Base Excess 8.4 mEq/L Sodium 141 (136-145) mmol/L Potassium 4.2 (3.5-5.1) mmol/L Chloride 100 (98-107) mmol/L Carbon Dioxide 34 H (21-32) mmol/L Anion Gap 7 (3-11) BUN 27 H (6-23) mg/dl Creatinine 0.90 (0.6-1.4) mg/dl Est Cr Clr Drug Dosing 160.7 eGFR 103.40 BUN/Creatinine Ratio 30.0 H (10-20) Glucose 199 H (70-99(Fasting)) mg/dl POC Glucose 192 H (70-99) mg/dl Estimat Average Glucose 280 mg/dl Hemoglobin A1c 11.4 H (4.5-5.6) % Lactate (0.4-2.0) mmol/L Calcium 8.9 (8.6-10.3) mg/dl Magnesium 1.7 (1.7-2.4) mg/dl Total Bilirubin (0.2-1.0) mg/dl AST (13-39) U/L ALT (7-52) U/L Alkaline Phosphatase (34-104) U/L Troponin I High Sens (0-20) pg/ml Total Protein (6.0-8.3) gm/dl Albumin (3.4-5.0) gm/dl Globulin (2.5-4.0) gm/dl Albumin/Globulin Ratio (0.9-2) Lipase (11-82) U/L Procalcitonin (0-0.5) ng/ml Urine Color Urine Appearance (Clear) Urine pH (4.5-7.5) Ur Specific [place] (1.000-1.030) Urine Protein (Negative) Urine Glucose (UA) (Negative) Urine Ketones (Negative) Urine Blood (Negative) Urine Nitrite (Negative) Urine Bilirubin (Negative) Urine Urobilinogen (Negative) Ur Leukocyte Esterase (Negative) Urine WBC (Auto) (0-5) /hpf Urine RBC (Auto) (0-2) /hpf U Hyaline Cast (Auto) (0-2) /lpf U Epithel Cells (Auto) (0-2) /hpf Urine Bacteria (Auto) (None Seen) Urine Comment 09/23/25 09/22/25 09/22/25 Range/Units 01:08 22:02 19:57 WBC (4.8-10.8) K/ul RBC (4.70-6.10) M/uL Hgb (14.0-18.0) g/dL Hct (42.0-52.0) % MCV (80.0-100.0) fL MCH (25.0-34.0) pg MCHC (32.0-36.0) g/dL RDW Std Deviation (36.4-46.3) fL RDW Coeff of Abiodun (11.5-14.5) % Plt Count (130-400) K/uL MPV (9.4-12.4) fL Immature Gran % (Auto) % Neut % (Auto) % Lymph % (Auto) % [place] % (Auto) % Eos % (Auto) % Baso % (Auto) % Neut # (Auto) (1.40-6.50) K/uL Lymph # (Auto) (1.20-3.40) K/uL [place] # (Auto) (0.11-0.59) K/uL Eos # (Auto) (0.00-0.50) K/uL Baso # (Auto) (0.00-0.20) K/uL Immature Gran # (Auto) (0.01-0.20) K/uL Absolute Nucleated RBC (0.00-0.12) K/uL Nucleated RBC % (auto) % D-Dimer (0-500) ug/L FEU VBG pH (7.36-7.41) VBG pCO2 (38-50) mmHg VBG pO2 mmHg VBG HCO3 mmol/L VBG O2 Saturation % VBG Base Excess mEq/L Sodium (136-145) mmol/L Potassium (3.5-5.1) mmol/L Chloride (98-107) mmol/L Carbon Dioxide (21-32) mmol/L Anion Gap (3-11) BUN (6-23) mg/dl Creatinine (0.6-1.4) mg/dl Est Cr Clr Drug Dosing eGFR BUN/Creatinine Ratio (10-20) Glucose (70-99(Fasting)) mg/dl POC Glucose 201 H 221 H (70-99) mg/dl Estimat Average Glucose mg/dl Hemoglobin A1c (4.5-5.6) % Lactate (0.4-2.0) mmol/L Calcium (8.6-10.3) mg/dl Magnesium (1.7-2.4) mg/dl Total Bilirubin (0.2-1.0) mg/dl AST (13-39) U/L ALT (7-52) U/L Alkaline Phosphatase (34-104) U/L Troponin I High Sens (0-20) pg/ml Total Protein (6.0-8.3) gm/dl Albumin (3.4-5.0) gm/dl Globulin (2.5-4.0) gm/dl Albumin/Globulin Ratio (0.9-2) Lipase (11-82) U/L Procalcitonin (0-0.5) ng/ml Urine Color Yellow Urine Appearance Clear (Clear) Urine pH 5.5 (4.5-7.5) Ur Specific [place] 1.023 (1.000-1.030) Urine Protein 2+ H (Negative) Urine Glucose (UA) 1+ H (Negative) Urine Ketones Negative (Negative) Urine Blood Negative (Negative) Urine Nitrite Negative (Negative) Urine Bilirubin Negative (Negative) Urine Urobilinogen Negative (Negative) Ur Leukocyte Esterase Negative (Negative) Urine WBC (Auto) 0-5 (0-5) /hpf Urine RBC (Auto) 0-2 (0-2) /hpf U Hyaline Cast (Auto) 0-2 (0-2) /lpf U Epithel Cells (Auto) 0-2 (0-2) /hpf Urine Bacteria (Auto) None Seen (None Seen) Urine Comment 09/22/25 09/22/25 Range/Units 17:32 15:23 WBC 8.02 (4.8-10.8) K/ul RBC 5.26 (4.70-6.10) M/uL Hgb 13.1 L (14.0-18.0) g/dL Hct 42.9 (42.0-52.0) % MCV 81.6 (80.0-100.0) fL MCH 24.9 L (25.0-34.0) pg MCHC 30.5 L (32.0-36.0) g/dL RDW Std Deviation 49.3 H (36.4-46.3) fL RDW Coeff of Abiodun 16.9 H (11.5-14.5) % Plt Count 286 (130-400) K/uL MPV 9.4 (9.4-12.4) fL Immature Gran % (Auto) 1.5 % Neut % (Auto) 60.2 % Lymph % (Auto) 22.8 % [place] % (Auto) 10.5 % Eos % (Auto) 4.1 % Baso % (Auto) 0.9 % Neut # (Auto) 4.83 (1.40-6.50) K/uL Lymph # (Auto) 1.83 (1.20-3.40) K/uL [place] # (Auto) 0.84 H (0.11-0.59) K/uL Eos # (Auto) 0.33 (0.00-0.50) K/uL Baso # (Auto) 0.07 (0.00-0.20) K/uL Immature Gran # (Auto) 0.12 (0.01-0.20) K/uL Absolute Nucleated RBC (0.00-0.12) K/uL Nucleated RBC % (auto) % D-Dimer (0-500) ug/L FEU VBG pH 7.39 (7.36-7.41) VBG pCO2 59 H (38-50) mmHg VBG pO2 46 mmHg VBG HCO3 36 mmol/L VBG O2 Saturation 75.2 % VBG Base Excess 8.6 mEq/L Sodium 140 (136-145) mmol/L Potassium 3.7 (3.5-5.1) mmol/L Chloride 98 (98-107) mmol/L Carbon Dioxide 34 H (21-32) mmol/L Anion Gap 8 (3-11) BUN 30 H (6-23) mg/dl Creatinine 0.84 (0.6-1.4) mg/dl Est Cr Clr Drug Dosing Not Reportable eGFR 105.58 BUN/Creatinine Ratio 35.7 H (10-20) Glucose 301 H* (70-99(Fasting)) mg/dl POC Glucose (70-99) mg/dl Estimat Average Glucose mg/dl Hemoglobin A1c (4.5-5.6) % Lactate 1.3 (0.4-2.0) mmol/L Calcium 9.3 (8.6-10.3) mg/dl Magnesium (1.7-2.4) mg/dl Total Bilirubin 0.4 (0.2-1.0) mg/dl AST 17 (13-39) U/L ALT 26 (7-52) U/L Alkaline Phosphatase 65 (34-104) U/L Troponin I High Sens 17.7 (0-20) pg/ml Total Protein 6.9 (6.0-8.3) gm/dl Albumin 3.3 L (3.4-5.0) gm/dl Globulin 3.6 (2.5-4.0) gm/dl Albumin/Globulin Ratio 0.9 (0.9-2) Lipase 62 (11-82) U/L Procalcitonin 0.03 (0-0.5) ng/ml Urine Color Urine Appearance (Clear) Urine pH (4.5-7.5) Ur Specific [place] (1.000-1.030) Urine Protein (Negative) Urine Glucose (UA) (Negative) Urine Ketones (Negative) Urine Blood (Negative) Urine Nitrite (Negative) Urine Bilirubin (Negative) Urine Urobilinogen (Negative) Ur Leukocyte Esterase (Negative) Urine WBC (Auto) (0-5) /hpf Urine RBC (Auto) (0-2) /hpf U Hyaline Cast (Auto) (0-2) /lpf U Epithel Cells (Auto) (0-2) /hpf Urine Bacteria (Auto) (None Seen) Urine Comment Medications Administered Current Inpatient Medications Acetaminophen (Acetaminophen 325 Mg Tab) 650 mg PO Q4H PRN PRN Reason: Pain or Fever Stop: 10/22/25 21:13 Dextrose (Dextrose 50% 50 Ml Syringe) 25 - 50 ml IV UD PRN; Protocol PRN Reason: Hypoglycemia Protocol Stop: 10/22/25 21:13 Enoxaparin Sodium (Enoxaparin Inj 40 Mg/0.4 Ml Syr) 40 mg SQ Q12 SOPHIA Stop: 10/22/25 21:13 Last Admin: 09/23/25 10:07 Dose: 40 mg Glucagon (Glucagon For Inj 1 Mg Vial) 1 mg SQ UD PRN; Protocol PRN Reason: Hypoglycemia Protocol Stop: 10/22/25 21:13 Glucose (Glucose 40% Gel 15 Gm Tube) 15 - 30 gm PO UD PRN; Protocol PRN Reason: Hypoglycemia Protocol Stop: 10/22/25 21:13 Glucose (Glucose 10 Tab/Tube) 4 - 8 tab PO UD PRN; Protocol PRN Reason: Hypoglycemia Protocol Stop: 10/22/25 21:13 Hydromorphone HCl (Hydromorphone Inj 0.5 Mg/0.5 Ml Syr) 0.5 mg IV Q6H PRN PRN Reason: Breakthrough Pain Stop: 10/06/25 21:13 Acetaminophen (Ofirmev) 1,000 mg in 100 mls @ 400 mls/hr IV Q8H PRN PRN Reason: Pain or Fever Stop: 09/25/25 21:13 Pantoprazole Sodium (Protonix) 40 mg in 10 mls @ 5 mls/min IV BID [facility] Stop: 10/23/25 08:59 Last Admin: 09/23/25 10:07 Dose: 5 mls/min Magnesium Sulfate/Dextrose (Magnesium Sulfate / D5w) 1 gm in 100 mls @ 50 mls/hr IV ONE ONE Stop: 09/23/25 10:21 Last Admin: 09/23/25 10:06 Dose: 50 mls/hr Insulin Aspart (Insulin Aspart Per Unit Charge) 0 units SC ACHS SOPHIA Stop: 10/22/25 21:13 Last Admin: 09/23/25 10:06 Dose: 4 units Insulin Glargine (Lantus Per Unit Charge) 40 units SQ BID [facility] Stop: 10/22/25 21:13 Last Admin: 09/23/25 10:05 Dose: 40 units Metoprolol Succinate (Metoprolol Succ 50mg Ext Rel Tab) 100 mg PO BID [facility] Stop: 10/22/25 21:13 Last Admin: 09/23/25 09:42 Dose: Not Given Miscellaneous (Carbohydrates For Hypoglycemia ) 15 - 30 gm PO UD PRN PRN Reason: Hypoglycemia Protocol Stop: 10/22/25 21:13 Miscellaneous Information (Pharmacy Glycemic Mgmt Consult) 1 each N/A UD PRN PRN Reason: Consult Stop: 10/22/25 21:13 Nitroglycerin (Nitroglycerin Sl 0.4 Mg/Tab Tab) 0.4 mg SL Q5M PRN PRN Reason: Chest Pain Stop: 10/22/25 21:13 Polyethylene Glycol (Polyethylene (Miralax) 17 Gm Pack) 17 gm PO DAILY PRN PRN Reason: Constipation Stop: 10/22/25 21:13 Spironolactone (Spironolactone 25 Mg Tab) 25 mg PO DAILY [facility] Stop: 10/23/25 08:59 Last Admin: 09/23/25 09:42 Dose: Not Given Terazosin HCl (Terazosin Hcl 1 Mg Cap) 1 mg PO HS [facility] Stop: 10/22/25 21:13 Last Admin: 09/23/25 00:25 Dose: Not Given
--- NOTE | 2025-09-23 11:31 | CT Scan Report ---
CT head/brain wo con CLINICAL HISTORY: 49 years-old Male with altered mental status. Acutely altered mental status TECHNIQUE: Multiple axial CT images of the head were obtained without contrast. A dose lowering tech nique was utilized adhering to the principles of ALARA. CT DOSE: 950.49 mGy.cm COMPARISON: Head CT 12/21/2024 FINDINGS: No acute intracranial hemorrhage, midline shift, intracranial mass, hydrocephalus, territorial ischem ia or abnormal extra-axial collection. The calvarium is intact. Probable small posterior scalp contusion. The paranasal sinuses, mastoid air cells, and middle ear cavities are clear. IMPRESSION: No acute intracranial abnormality. ACT 112: Negative or not required by law. The above report was generated using voice recognition software. It may contain grammatical, syntax o r spelling errors. Electronically signed by: Gil Hilliard M.D. 09/23/2025 11:29 AM
--- NOTE | 2025-09-23 11:51 | Pulmonary Consultation ---
Date of Consultation September 23, 2025 Assessment & Plan (1) AMS (altered mental status): (2) Acute on chronic respiratory failure with hypoxia and hypercapnia: (3) Obesity hypoventilation syndrome: Plan Patient is encephalopathic. Would recommend obtaining ammonia and urine drug sc reen. CT of the head does not show any evidence of acute intracranial process, unsure if he fell or something recently given that there is a possible small contusion. Would keep on NIV with BiPAP or AVAPS as tolerated. Patient needs to be diuresed aggressively. He is grossly volume overloaded on exam and I believe that this is why he is having worsening respiratory failure. Recommend IV Lasix. Could consider giving Narcan if mentation does not improve. Patient is protecting his airway at this time however if his respiratory status or mentation declines he may require intubation. Thank you for this consult. Pulmonary will follow you. Please call directly with any questions. History of Present Illness Reason for Consultation: Hypoxic hypercapnic respite failure Requesting Physician: Maxwell Ruiz MD Attending Physician: Maxwell Ruiz MD History of Present Illness Patient is a 49-year-old male with a past medical history significant for OHS and chronic hypercapnic respiratory failure with home AVAPS (settings AVAPS AE, breath rate auto, inspiratory time auto, tidal volume 600, PS min 4-10, PS max 12-20, EPAP min 6-10, EPAP max 10-16, AVAPS rate 14 during sleep as needed). The patient presented to the emergency department on 09/22/2025 for evaluation of abdominal pain that had worsened over the past couple months. He endorsed periumbilical pain that radiates to his back. Denied nausea or vomiting. Had reportedly taken fentanyl the night before. The patient was noted to be mildly hypoxic at 87% on room air. He was taken for imaging of the abdomen with CT which did not show any acute findings. Imaging of the chest with x-ray was obtained showed evidence of mild pulmonary vascular congestion upon my review. The patient was admitted to the hospitalist service. Overnight he became more hypoxic and obtunded. VBG was obtained which showed mild hypercapnia. The patient was on BiPAP and trialed on AVAPS but was desaturating with AVAPS so switched back to BiPAP 20/5. Repeat x-ray showed worsening pulmonary edema with pulmonary vascular congestion. Due to altered mentation the patient was taken for CT head that did not show any acute intracranial process however a probable small posterior scalp contusion was appreciated. When examined patient in the emergency department he is encephalopathic. He does open his eyes. Pupils are not quite pinpoint but very small, midline. He is grossly volume overloaded. On BiPAP. Pulling okay tidal volumes. Coarse breath sounds without wheezing. Diminished significantly throughout. Abdomen is tender with guarding. No bruising appreciated. Anasarca throughout. Allergies Allergy/AdvReac Type Severity Reaction Status Date / Time cefaclor [From Ceclor] Allergy Unknown childhood Verified 09/22/25 17:14 allergy ? Cephalosporins Allergy Unknown SEE COMMENT Verified 09/22/25 17:14 pioglitazone [From Actos] Allergy Unknown ON Verified 09/22/25 17:14 Nuvotronics MED LIST empagliflozin AdvReac Severe put me Verified 09/22/25 17:14 [From Jardiance] into ketoacidosis? NSAIDS (Non-Steroidal AdvReac Unknown use with Verified 09/22/25 17:14 Anti-Inflamma caution : hx esophagus damage Home Medications Medication Instructions Recorded Confirmed Type terazosin 1 mg capsule 1 mg PO HS 30 days #30 caps 09/17/24 09/22/25 Rx metformin 500 mg tablet,extended 1,000 mg PO BID 12/21/24 09/22/25 History release 24 hr insulin aspart U-100 100 unit/mL 0 unit continuous subcutaneous 03/08/25 09/22/25 History subcutaneous solution (Novolog infusion CONTINOUS U-100 Insulin aspart) spironolactone 25 mg tablet 25 mg PO DAILY 07/19/25 09/22/25 History insulin glargine 100 unit/mL 40 unit subcut BID 09/22/25 09/22/25 History subcutaneous solution (Lantus U-100 Insulin) metoprolol succinate 100 mg 100 mg PO BID 09/22/25 09/22/25 History tablet,extended release 24 hr Patient History Medical History Chronic diastolic heart failure Volume overload Arthritis Low magnesium level History of RSV infection & flu a few months ago. Tachycardia chronic high heart rate - unknown etiology - a few months ago increased dose of metoprolol. Rhinovirus dx May 23 [facility] & another illness dx - ? name of /antibiotic and inhalers for. feeling better: only symptom : sore throat. COPD (chronic obstructive pulmonary disease) ? dx of Peripheral neuropathy Diabetes mellitus, type 2 Hypertension Tobacco use Restrictive lung disease Elevated liver function tests History of DVT (deep vein thrombosis) "years ago">no known cause Tussive syncope "occurred only one time, no recent issues" Esophagitis Osteoarthritis Hx of pancreatitis resolved GERD (gastroesophageal reflux disease) Cardiac murmur A CHILD Erectile dysfunction MRSA (methicillin resistant Staphylococcus aureus) carrier over 2 yrs ago>"not sure where it was" Intellectual disability Obstructive sleep apnea cpap Obesity IBS (irritable bowel syndrome) History of ventricular tachycardia "nonsustained" Surgical History History of appendectomy 02/10/2023 History of reduction of nasal fracture 09/25/21-Dr. Garcia Status post incision and drainage LLE History of shoulder surgery right-2019 H/O foot surgery LEFT-2018 History of arthroscopy LEFT [id number] History of esophagogastroduodenoscopy (EGD) History of colonoscopy with most recent attempt: failed prep. Told would need a 2 day prep prior to colonoscopy in Sep 2023. History of tooth extraction History of tonsillectomy and adenoidectomy 1979 Family History Brother Family history of diabetes mellitus Environmental allergies Asthma Mother Family history of diabetes mellitus Hypertension Environmental allergies Father Family history of diabetes mellitus Hypertension Heart disease Grandfather (Paternal) Lung cancer smoker Aunt Bleeding disorder Other No family history of adverse response to anesthesia Social History Smoking Status: Unknown if ever smoked Tobacco Type: Cigarettes Age Started Using Tobacco: 14; Cigarettes Per Day: 20; Second Hand Exposure: No; Do You Dip or Chew Tobacco: No; Hx Alcohol Use: No Hx Substance Use: No Preferred Language: Macedonian Communication Ability: Effective [employer] Required: No Beliefs That Will Affect Care: None marital status: / marital status details: single at this time Current Living Situation: Family Current Living Situation Comment: lives with family and stays with his girlfriend. 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 Physical Exam Physical Exam: Physical examination: General: Obese, chronically ill appearing. HEENT: Normocephalic, atraumatic. Small pupils. Large neck circumference. Skin: Warm and dry. Some mild erythema of the skin appreciated in the upper abdomen. No obvious cellulitis however. Extensive edema appreciated at least 2-3+ pitting. Cardiovascular: Heart is a regular rate and rhythm, no murmurs appreciated on my exam. Extensive 2-3+ pitting edema. Lungs: Diminished bilaterally. On BiPAP. Pulling okay tidal volumes, anywhere between 400-800. Abdomen: Protuberant, distended, tender to palpation. No bruising appreciated. Musculoskeletal: BKA. Neurologic: Encephalopathic, opens eyes but does not answer questions. Results & Data Results & Data Vital Signs (Past 12 Hours) Vital Signs Pulse Pulse Resp BP BP Pulse Ox O2 Del Method 09/23/25 11:00 100 H 20 156/82 H 92 BiPAP 09/23/25 10:30 100 H 16 157/81 H 93 BiPAP 09/23/25 10:00 100 H 25 H 168/93 H 93 BiPAP 09/23/25 09:30 101 H 16 171/114 H 95 BiPAP 09/23/25 09:00 101 H 11 L 190/104 H 96 BiPAP 09/23/25 08:30 98 H 10 L 162/91 H 95 BiPAP 09/23/25 08:12 100 H 10 L 167/93 H 94 BiPAP 09/23/25 08:00 BiPAP 09/23/25 07:55 20 96 09/23/25 07:08 99 H 09/23/25 05:00 94 H 17 127/72 95 BiPAP 09/23/25 04:51 BiPAP 09/23/25 04:00 90 20 168/88 H 96 BiPAP 09/23/25 03:11 95 H 155/82 H 09/23/25 02:24 91 H 18 98 09/23/25 01:00 92 H 18 157/74 H 98 BiPAP O2 Flow Rate FiO2 09/23/25 11:00 5 40 09/23/25 10:30 5 40 09/23/25 10:00 5 40 09/23/25 09:30 5 40 09/23/25 09:00 5 40 09/23/25 08:30 5 40 09/23/25 08:12 5 40 09/23/25 08:00 5 09/23/25 07:55 40 09/23/25 07:08 09/23/25 05:00 40 09/23/25 04:51 40 09/23/25 04:00 40 09/23/25 03:11 09/23/25 02:24 40 09/23/25 01:00 20 Diagnostic Findings Imaging of the chest reviewed. Some significant pulmonary edema and pulmonary vascular congestion appreciated. PG Care Time/CCT Total # of Minutes Spent Total Time Spent with Patient: Total time spent is greater than 50% in coordination of care (as documented) at patient's floor/unit and/or counseling patient: [place] [address] IN/OBS CONSULT LVL 4,60M Patient Type New History Detailed Exam Detailed Medical Decision Making Moderate Complexity Diagnoses AMS (altered mental status) R41.82 Acute on chronic respiratory failure with hypoxia and hypercapnia J96.21; J96.22 Obesity hypoventilation syndrome E66.2
[2025-09-23 12:38] LABS: Amphetamines+Metham, Urine Neg (Neg); MDMA (Ecstacy), Urine Neg (Neg); Marijuana, Urine Neg (Neg)
[2025-09-23] MEDS: FUROSEMIDE 40 MG/4 ML VIAL IV ONE (13:53)
[2025-09-23] MEDS: METOPROLOL SUCC 50MG EXT REL TAB PO STA (14:41)
--- NOTE | 2025-09-24 01:25 | Electrocardiogram Report ---
Test Reason : Blood Pressure : */* mmHG Vent. Rate : 94 BPM Atrial Rate : 94 BPM P-R Int : 144 ms QRS Dur : 104 ms QT Int : 388 ms P-R-T Axes : 45 -18 9 degrees QTcB Int : 485 ms Normal sinus rhythm Incomplete right bundle branch block Cannot rule out Anterior infarct , age undetermined Abnormal ECG When compared with ECG of 19-Jul-2025 09:54, Questionable change in QRS axis Nonspecific T wave abnormality now evident in Inferior leads Confirmed by Lizeth Ramos ([id number]) on 09/24/2025 1:25:00 AM Referred By: Confirmed By: Lizeth Ramos
[2025-09-24 05:56] LABS: Hematocrit (blood only) 40.2 % (42.0-52.0); Hemoglobin 12.1 g/dL (14.0-18.0); Mean Corpuscular Hemoglobin 25.0 pg (25.0-34.0); Mean Corpuscular Volume 83.1 fL (80.0-100.0); Platelet Count 257 K/uL (130-400); RDW Standard Deviation 49.0 fL (36.4-46.3); Red Blood Count 4.84 M/uL (4.70-6.10); White Blood Count 8.28 K/ul (4.8-10.8)
[2025-09-24 06:11] LABS: Anion Gap 7.0 (3-11); Blood Urea Nitrogen 24.0 mg/dl (6-23); Calcium 8.5 mg/dl (8.6-10.3); Carbon Dioxide 34.0 mmol/L (21-32); Chloride 96.0 mmol/L (98-107); Creatinine Clr Calc Pharmacy 123.2 ml/min; Glucose 131.0 mg/dl (70-99(Fasting)); Magnesium 1.9 mg/dl (1.7-2.4); Potassium 3.9 mmol/L (3.5-5.1); Sodium 137.0 mmol/L (136-145)
--- NOTE | 2025-09-24 15:00 | Hospitalist Progress Note ---
Date of Service September 24, 2025 Assessment & Plan (1) Acute on chronic respiratory failure with hypoxia and hypercapnia: Plan: 49-year-old male with past medical history significant for type 2 diabetes, diabetic polyneuropathy, diabetes causing vascular disease, hyperlipidemia, COPD, obstructive sleep apnea, hypertension, CAD, chronic diastolic CHF, morbid obesity, gastroparesis, irritable bowel syndrome, GERD, constipation, CKD, degenerative disc disease, charcoaled Raegan tooth disease, status post left BKA, history of DVT, history of pancreatitis comes in because of abdominal pain. Patient states abdominal pain is going on for last couple of months. Pain is located around periumbilical region and radiates to back. Denies any nausea or vomiting. Says he has constipation and diarrhea from his irritable bowel syndrome. Patient states micturating okay. No fevers. Has left shoulder pain going on for last couple of months. Appetite is okay. Has cough and brings phlegm. No headache. No runny nose or sore throat. Patient states he is not using his BiPAP for about a month because it is not working properly and is waiting for a new set up to come. Patient was saturating 87% in the ER and was placed on BiPAP. States he uses his insulin pump but currently did not put it on. Hemodynamics are okay. In the ER he was found to have urinary retention. Acute on chronic respite failure with hypoxia and hypercapnia In Er was 87% room air hx of copd, DAMION Patient supposed to use BiPAP nightly. Noncompliant with BiPAP. VBG okay Currently on BiPAP saturating okay States does not use oxygen during daytime. Last admit he was requiring 2lts oxygen with exertion No leukocytosis. Lactic acid is okay at 1.3. Procalcitonin negative Chest x-ray okay No obvious wheezing on exam Nebs as needed two step prior to discharge Will monitor 12/ Pt seen this morning with RN at the bedside in room C10 in ED. Pt on bipap. Opens eyes when prompted for a sec, moves extremities when asked, nods. Otherwis e no other response and pt closes his eyes quickly. Per chart review - in ED pt was complaining of abd. pain, received 50 mcg of IV fentanyl, can't see if he received anything else causing his mental status/ respiratory status this way. Discussed with RT, on Bipap right now -- this is consistent with setting from previous admission when pt was here in July and seen by Pulmonary medicine. Discussed with outpatient psychiatrist - per Dr. Busby, pt was quite somnolent on his exam. Will repeat VBG now, CXR, will obtain CT head, Urine drug screen. Will discuss further with pulm. regarding his acute on chronic hypoxic hypercapnic resp. failure. 09/24 Pt awake, alert , answers appropriately. Currently on 2L of suppl. O2, feeling much improved, abd. discomfort improved, pt is eating. Received lasix for acute diastolic HF exacerb, will cont. with IV lasix, and will cont. to monitor Abdominal pain Lipase normal UA negat. CT abdomen pelvis no acute findings IV Protonix for now Will monitor Urinary retention Status post [facility] consulted. Left shoulder pain Going on for last couple of months X-ray no acute findings Obstructive sleep apnea Has not been using his bipap as mask was not fitting, now new mask is delivered and he will be able to use it once at home Diabetes States he uses insulin pump and also long-acting insulin Currently seems he did not put on his insulin pump Continue on Lantus Sliding scale Glycemic pharmacy consult Acute on Chronic diastolic CHF Spironolactone Last admission he was also on torsemide - cont. w/ IV lasix for now, as above Will monitor Hypertension On metoprolol succinate, terazosin and spironolactone Last admission he was also on Imdur Will monitor Morbid obesity Counseling Coronary artery disease Moderate nonobstructive CAD with total occlusion of diagonal branch on beta-ryan currently not on aspirin and statin and isosorbide mononitrate DVT prophylaxis - Lovenox Disposition - Telemetry Full code. Admission and Anticipated Discharge Date Admission Date: September 22, 2025 Subjective Pt seen in follow up Presented for abd. pain Found hypoxic, hypercarbic, was placed on bipap overnight Yesterday AM pt very drowsy, still on BiPAP, opened eyes only for brief moment, followed commands such as moves extremities, nodding.Currently pt awake, alert, answers appropriately, able to provide history. Abdominal discomfort much improved now. [facility] catheter was placed on admission. Review of Systems Review of Systems: All systems reviewed & are unremarkable except as noted in Subjective Physical Exam Physical Exam: General- obese M, on 2L of suppl. O2 Head- atraumatic Eyes- PERRL. Neck- supple Lungs- decreased breath sounds, no wheezing or crackles Heart- regular rhythm; no murmur, no gallop. Abdomen- soft, obese, + some distension, nontender Extremities- s/p left BKA, mild lower ext edema Neuro- awake, alert, answers appropriately, moves extremities Results & Data Results & Data Vital Signs (Past 12 Hours) Vital Signs Temp Pulse Pulse Resp BP Pulse Ox O2 Del Method 09/24/25 14:52 85 09/24/25 11:18 92 H 09/24/25 11:09 36.9 C 85 21 160/82 H 95 Nasal Cannula 09/24/25 10:14 Nasal Cannula, BiPAP 09/24/25 07:23 36.7 C 93 H 19 139/57 L 92 Nasal Cannula 09/24/25 04:16 36.8 C 97 H 18 148/65 H 94 BiPAP 09/24/25 03:21 104 H O2 Flow Rate 09/24/25 14:52 09/24/25 11:18 09/24/25 11:09 2.0 09/24/25 10:14 2 09/24/25 07:23 4.0 09/24/25 04:16 09/24/25 03:21 Laboratory Results 09/24/25 09/24/25 09/24/25 Range/Units 11:08 07:21 05:25 WBC 8.28 (4.8-10.8) K/ul RBC 4.84 (4.70-6.10) M/uL Hgb 12.1 L (14.0-18.0) g/dL Hct 40.2 L (42.0-52.0) % MCV 83.1 (80.0-100.0) fL MCH 25.0 (25.0-34.0) pg MCHC 30.1 L (32.0-36.0) g/dL RDW Std Deviation 49.0 H (36.4-46.3) fL RDW Coeff of Abiodun 16.3 H (11.5-14.5) % Plt Count 257 (130-400) K/uL MPV 9.4 (9.4-12.4) fL Sodium 137 (136-145) mmol/L Potassium 3.9 (3.5-5.1) mmol/L Chloride 96 L (98-107) mmol/L Carbon Dioxide 34 H (21-32) mmol/L Anion Gap 7 (3-11) BUN 24 H (6-23) mg/dl Creatinine 1.18 (0.6-1.4) mg/dl Est Cr Clr Drug Dosing 123.2 ml/min eGFR 74.71 BUN/Creatinine Ratio 20.3 H (10-20) Glucose 131 H (70-99(Fasting)) mg/dl POC Glucose 177 H 143 H (70-99) mg/dl Calcium 8.5 L (8.6-10.3) mg/dl Phosphorus 4.5 (2.5-4.9) mg/dl Magnesium 1.9 (1.7-2.4) mg/dl 09/23/25 09/23/25 Range/Units 21:01 15:56 WBC (4.8-10.8) K/ul RBC (4.70-6.10) M/uL Hgb (14.0-18.0) g/dL Hct (42.0-52.0) % MCV (80.0-100.0) fL MCH (25.0-34.0) pg MCHC (32.0-36.0) g/dL RDW Std Deviation (36.4-46.3) fL RDW Coeff of Abiodun (11.5-14.5) % Plt Count (130-400) K/uL MPV (9.4-12.4) fL Sodium (136-145) mmol/L Potassium (3.5-5.1) mmol/L Chloride (98-107) mmol/L Carbon Dioxide (21-32) mmol/L Anion Gap (3-11) BUN (6-23) mg/dl Creatinine (0.6-1.4) mg/dl Est Cr Clr Drug Dosing ml/min eGFR BUN/Creatinine Ratio (10-20) Glucose (70-99(Fasting)) mg/dl POC Glucose 102 H 103 H (70-99) mg/dl Calcium (8.6-10.3) mg/dl Phosphorus (2.5-4.9) mg/dl Magnesium (1.7-2.4) mg/dl Medications Administered Current Inpatient Medications Acetaminophen (Acetaminophen 325 Mg Tab) 650 mg PO Q4H PRN PRN Reason: Pain or Fever Stop: 10/22/25 21:13 Dextrose (Dextrose 50% 50 Ml Syringe) 25 - 50 ml IV UD PRN; Protocol PRN Reason: Hypoglycemia Protocol Stop: 10/22/25 21:13 Enoxaparin Sodium (Enoxaparin Inj 40 Mg/0.4 Ml Syr) 40 mg SQ Q12 SOPHIA Stop: 10/22/25 21:13 Last Admin: 09/24/25 08:53 Dose: 40 mg Furosemide (Furosemide 40 Mg/4 Ml Vial) 40 mg IV ONE ONE Stop: 09/24/25 15:00 Glucagon (Glucagon For Inj 1 Mg Vial) 1 mg SQ UD PRN; Protocol PRN Reason: Hypoglycemia Protocol Stop: 10/22/25 21:13 Glucose (Glucose 40% Gel 15 Gm Tube) 15 - 30 gm PO UD PRN; Protocol PRN Reason: Hypoglycemia Protocol Stop: 10/22/25 21:13 Glucose (Glucose 10 Tab/Tube) 4 - 8 tab PO UD PRN; Protocol PRN Reason: Hypoglycemia Protocol Stop: 10/22/25 21:13 Hydromorphone HCl (Hydromorphone Inj 0.5 Mg/0.5 Ml Syr) 0.5 mg IV Q6H PRN PRN Reason: Breakthrough Pain Stop: 10/06/25 21:13 Acetaminophen (Ofirmev) 1,000 mg in 100 mls @ 400 mls/hr IV Q8H PRN PRN Reason: Pain or Fever Stop: 09/25/25 21:13 Pantoprazole Sodium (Protonix) 40 mg in 10 mls @ 5 mls/min IV BID SOPHIA Stop: 10/23/25 08:59 Last Admin: 09/24/25 08:52 Dose: 5 mls/min Insulin Aspart (Insulin Aspart Per Unit Charge) 0 units SC ACHS SOPHIA Stop: 10/22/25 21:13 Last Admin: 09/24/25 12:18 Dose: 11 units Insulin Glargine (Lantus Per Unit Charge) 40 units SQ BID SOPHIA Stop: 10/22/25 21:13 Last Admin: 09/24/25 08:59 Dose: 40 units Metoprolol Succinate (Metoprolol Succ 50mg Ext Rel Tab) 100 mg PO BID SOPHIA Stop: 10/22/25 21:13 Last Admin: 09/24/25 08:52 Dose: 100 mg Miscellaneous (Carbohydrates For Hypoglycemia ) 15 - 30 gm PO UD PRN PRN Reason: Hypoglycemia Protocol Stop: 10/22/25 21:13 Miscellaneous Information (Pharmacy Glycemic Mgmt Consult) 1 each N/A UD PRN PRN Reason: Consult Stop: 10/22/25 21:13 Nitroglycerin (Nitroglycerin Sl 0.4 Mg/Tab Tab) 0.4 mg SL Q5M PRN PRN Reason: Chest Pain Stop: 10/22/25 21:13 Polyethylene Glycol (Polyethylene (Miralax) 17 Gm Pack) 17 gm PO DAILY PRN PRN Reason: Constipation Stop: 10/22/25 21:13 Spironolactone (Spironolactone 25 Mg Tab) 25 mg PO DAILY SOPHIA Stop: 10/23/25 08:59 Last Admin: 09/24/25 08:54 Dose: 25 mg Terazosin HCl (Terazosin Hcl 1 Mg Cap) 1 mg PO HS SOPHIA Stop: 10/22/25 21:13 Last Admin: 09/23/25 21:18 Dose: 1 mg
[2025-09-24] MEDS: FUROSEMIDE 40 MG/4 ML VIAL IV ONE (15:13)
[2025-09-24] MEDS: POTASSIUM CHLORIDE CRTAB 20 MEQ TABCR PO STA (15:13)
--- NOTE | 2025-09-24 15:58 | Pulmonology Progress Note ---
Date of Service September 24, 2025 Assessment & Plan (1) Class 2 obesity with alveolar hypoventilation and serious comorbidity in adult: Plan: Patient with morbid obesity and acute on chronic hypercapnic respiratory failure. Volume overload is contributing to this acute condition. Recommend the use of BiPAP at all times when sleeping. Patient has new nasal pillows that he will be using at home. Recommend outpatient follow-up with PFTs and poultry pathologist. (2) Encounter for smoking cessation counseling: Plan: Smoke cessation strongly encouraged. Patient states that he is not ready to dennis t at this time. He was educated that he will likely have recurrent exacerbations with hypercapnic respiratory failure if he does not quit smoking. (3) Diastolic CHF, acute on chronic: Plan: Diuresis per primary team. Recommend he follow-up with the CHF clinic locally. Plan Pulmonary to sign off at this time. Thank you for the consult. Please call with questions. I personally spent 30 minutes on the date of service in activities related to this patient's encounter, including 20 minutes of counseling with patient regarding treatment plan and 10 minutes of clinical review of lab results and documentation. I did academic counselor the patient regarding their diagnosis and treatment plan and they expressed understanding. This note was dictated using voice recognition software and may include grammatical errors, extra words, word substitutions and other inaccuracies due to errors in the voice recognition software and differences in speech patterns. Admission and Anticipated Discharge Date Admission Date: September 22, 2025 Subjective Patient feels better today and denies any significant shortness of breath at rest. He does have a nonproductive cough. He wears BiPAP overnight. He notes at home he has had an issue with a poor seal with mask. He continues smoke heavily and about 1 pack a day. Review of Systems Review of Systems: All systems reviewed & are unremarkable except as noted in HPI & below Physical Exam Physical Exam: Physical examination: General: Obese, chronically ill appearing. HEENT: Normocephalic, atraumatic. Small pupils. Large neck circumference. Skin: Warm and dry. Some mild erythema of the skin appreciated in the upper abdomen. No obvious cellulitis however. Extensive edema appreciated at least 2-3+ pitting. Cardiovascular: Heart is a regular rate and rhythm, no murmurs appreciated on my exam. Extensive 2-3+ pitting edema. Lungs: Diminished bilaterally. On BiPAP. Pulling okay tidal volumes, anywhere between 400-800. Abdomen: Protuberant, distended, tender to palpation. No bruising appreciated. Musculoskeletal: BKA. Neurologic: Encephalopathic, opens eyes but does not answer questions. Results & Data Results & Data Vital Signs (Past 12 Hours) Vital Signs Temp Pulse Pulse Resp BP Pulse Ox O2 Del Method 09/24/25 14:52 85 09/24/25 11:18 92 H 09/24/25 11:09 36.9 C 85 21 160/82 H 95 Nasal Cannula 09/24/25 10:14 Nasal Cannula, BiPAP 09/24/25 07:23 36.7 C 93 H 19 139/57 L 92 Nasal Cannula 09/24/25 04:16 36.8 C 97 H 18 148/65 H 94 BiPAP O2 Flow Rate 09/24/25 14:52 09/24/25 11:18 09/24/25 11:09 2.0 09/24/25 10:14 2 09/24/25 07:23 4.0 09/24/25 04:16 PG Care Time/CCT Total # of Minutes Spent Total Time Spent with Patient: Total time spent is greater than 50% in coordination of care (as documented) at patient's floor/unit and/or counseling patient: Coding Level of Care Code 22551 SUB INP/OBS CARE 11/11MIN Diagnoses Class 2 obesity with alveolar hypoventilation and serious comorbidity in adult E66.812; E66.2 Encounter for smoking cessation counseling Z71.6; Z72.0 Diastolic CHF, acute on chronic I50.33
[2025-09-25 06:29] LABS: Hematocrit (blood only) 38.3 % (42.0-52.0); Hemoglobin 12.1 g/dL (14.0-18.0); Mean Corpuscular Hemoglobin 25.5 pg (25.0-34.0); Mean Corpuscular Volume 80.8 fL (80.0-100.0); Platelet Count 261 K/uL (130-400); RDW Standard Deviation 46.2 fL (36.4-46.3); Red Blood Count 4.74 M/uL (4.70-6.10); White Blood Count 6.52 K/ul (4.8-10.8)
[2025-09-25 07:20] LABS: Anion Gap 7.0 (3-11); Blood Urea Nitrogen 24.0 mg/dl (6-23); Calcium 8.9 mg/dl (8.6-10.3); Carbon Dioxide 33.0 mmol/L (21-32); Chloride 97.0 mmol/L (98-107); Creatinine Clr Calc Pharmacy 161.5 ml/min; Glucose 195.0 mg/dl (70-99(Fasting)); Magnesium 1.8 mg/dl (1.7-2.4); Potassium 4.1 mmol/L (3.5-5.1); Sodium 137.0 mmol/L (136-145)
[2025-09-25] MEDS: FUROSEMIDE 40 MG/4 ML VIAL IV ONE (08:56)
--- NOTE | 2025-09-25 09:58 | Pharmacy Report ---
Pharmacy Glycemic Short Note 2 - Date of Service September 25, 2025 - Glycemic Short BSG Results (Last 24 hours): 09/24/25 09/24/25 09/24/25 11:08 16:22 19:38 Glucose POC Glucose 177 H 130 H 131 H 09/25/25 09/25/25 06:07 07:10 Glucose 195 H POC Glucose 182 H OUTPATIENT ANTIDIABETIC REGIMEN: * Metformin 1g PO BID * Lantus 40 units BID * Omnipod - not connected at this time (Settings from Jul 2025: 2.8 units/hr, 67.2 units/day + ICR 3 and ISF 9) * A1c 11.4% 09/23/25 ASSESSMENT: 09/25: * Patient received 115 units of insulin yesterday (80 units basal, 35 units bolus) * BSGs have ranged from 102-195 over past couple of days * Only a couple values this AM out of range * 195 AM glucose likely due to HS snack charted around 2300 09/24 but not covered with insulin * Will not adjust Lantus regimen since high glucose this AM can be attributed to HS snack and glucose is within range majority of time * No changes to regimen at this time 09/23: * 49 yo M admitted with Acute on chronic respiratory failure with hypoxia and hypercapnia, T2DM. Patient required high doses of insulin (170+units/day) when admitted in July on IV Steroids. No steroids ordered at this time. * Patient very drowsy this morning and unable to clarify what he is doing with insulin at home at this time. * Basal bolus insulin while inpatient. PLAN FOR INPATIENT GLYCEMIC CONTROL: * Hold outpatient diabetes medications * Basal insulin * Lantus 40 units SQ BID * Bolus insulin * NovoLog per scale ACHS or Q6hrs while NPO * Goal Range: Low 110 mg/dL - High 140 mg/dL * Correction Factor: 15 mg/dL/unit * Nutritional / Prandial insulin per carb ratio of 1 unit per 5 grams CHO consumed
--- NOTE | 2025-09-25 11:45 | Hospitalist Progress Note ---
Date of Service September 25, 2025 Assessment & Plan (1) Acute on chronic respiratory failure with hypoxia and hypercapnia: Plan: 49-year-old male with past medical history significant for type 2 diabetes, diabetic polyneuropathy, diabetes causing vascular disease, hyperlipidemia, COPD, obstructive sleep apnea, hypertension, CAD, chronic diastolic CHF, morbid obesity, gastroparesis, irritable bowel syndrome, GERD, constipation, CKD, degenerative disc disease, charcoaled Raegan tooth disease, status post left BKA, history of DVT, history of pancreatitis comes in because of abdominal pain. Patient states abdominal pain is going on for last couple of months. Pain is located around periumbilical region and radiates to back. Denies any nausea or vomiting. Says he has constipation and diarrhea from his irritable bowel syndrome. Patient states micturating okay. No fevers. Has left shoulder pain going on for last couple of months. Appetite is okay. Has cough and brings phlegm. No headache. No runny nose or sore throat. Patient states he is not using his BiPAP for about a month because it is not working properly and is waiting for a new set up to come. Patient was saturating 87% in the ER and was placed on BiPAP. States he uses his insulin pump but currently did not put it on. Hemodynamics are okay. In the ER he was found to have urinary retention. Acute on chronic respite failure with hypoxia and hypercapnia In Er was 87% room air hx of copd, DAMION Patient supposed to use BiPAP nightly. Noncompliant with BiPAP. VBG okay Placed on BiPAP and saturating okay States does not use oxygen during daytime. Last admit he was requiring 2lts oxygen with exertion No leukocytosis. Lactic acid is okay at 1.3. Procalcitonin negative Chest x-ray okay No obvious wheezing on exam Nebs as needed two step prior to discharge Will monitor 12/7 Pt seen this morning with RN at the bedside in room C10 in ED. Pt on bipap. Opens eyes when prompted for a sec, moves extremities when asked, nods. Otherwi se no other response and pt closes his eyes quickly. Per chart review - in ED pt was complaining of abd. pain, received 50 mcg of IV fentanyl, can't see if he received anything else causing his mental status/ respiratory status this way. Discussed with RT, on Bipap right now -- this is consistent with setting from previous admission when pt was here in July and seen by Pulmonary medicine. Discussed with bundle sorter - per Dr. Busby, pt was quite somnolent on his exam. Will repeat VBG now, CXR, will obtain CT head, Urine drug screen. Will discuss further with pulm. regarding his acute on chronic hypoxic hypercapnic resp. failure. 09/24 Pt awake, alert , answers appropriately. Currently on 2L of suppl. O2, feeling much improved, abd. discomfort improved, pt is eating. Received lasix for acute diastolic HF exacerb, responding well, will cont. with IV lasix, and will cont. to monitor Acute on Chronic diastolic CHF - secondary to not using bipap at home - at home on Spironolactone Last admission he was also on torsemide. discussed w/ pt and his GF - pt took some torsemide at home as he felt he was getting more edematous - cont. w/ IV lasix for now, as above Will monitor Abdominal pain - now improved, pt tolerating diet Lipase normal UA negat. CT abdomen pelvis no acute findings IV Protonix for now Will monitor Urinary retention Status post [facility] consulted. Left shoulder pain Going on for last couple of months X-ray no acute findings Obstructive sleep apnea Has not been using his bipap as mask was not fitting, now new mask is delivered to his home and he will be able to use it once at home Diabetes States he uses insulin pump and also long-acting insulin on admission seems he did not put on his insulin pump Continue on Lantus Sliding scale Glycemic pharmacy consult Hypertension On metoprolol succinate, terazosin and spironolactone Last admission he was also on Imdur Will monitor Morbid obesity Counseling Coronary artery disease Moderate nonobstructive CAD with total occlusion of diagonal branch on beta-ryan currently not on aspirin and statin and isosorbide mononitrate DVT prophylaxis - Lovenox Disposition - Telemetry Full code. Admission and Anticipated Discharge Date Admission Date: September 22, 2025 Subjective Pt seen in follow up Presented for abd. pain Found hypoxic, hypercarbic, was placed on bipap overnight AM after admission pt very drowsy, still on BiPAP, opened eyes only for brief moment, followed commands such as moved extremities, nodding. Currently pt awake, alert, answers appropriately, able to provide history. Abdominal discomfort much improved now. [facility] catheter was placed on admission. Currently on 2L of suppl. O2 via NC, when not on bipap. Responding well to diuresis. Reports no new concerns or complaints. Review of Systems Review of Systems: All systems reviewed & are unremarkable except as noted in Subjective Physical Exam Physical Exam: General- obese M, on 2L of suppl. O2 Head- atraumatic Eyes- PERRL. Neck- supple Lungs- decreased breath sounds, no wheezing or crackles Heart- regular rhythm; no murmur, no gallop. Abdomen- soft, obese, + some distension, nontender Extremities- s/p left BKA, mild lower ext edema Neuro- awake, alert, answers appropriately, moves extremities Results & Data Results & Data Vital Signs (Past 12 Hours) Vital Signs Temp Pulse Pulse Resp BP BP Pulse Ox 09/25/25 10:37 36.7 C 88 16 155/76 H 92 09/25/25 07:07 36.9 C 91 H 20 148/65 H 100 09/25/25 03:46 88 19 100 09/25/25 03:25 36.6 C 85 18 168/65 H 98 09/25/25 00:11 90 19 99 O2 Del Method O2 Flow Rate FiO2 09/25/25 10:37 Nasal Cannula 5 09/25/25 07:07 BiPAP 09/25/25 03:46 40 09/25/25 03:25 Nasal Cannula 2 09/25/25 00:11 40 Laboratory Results 09/25/25 09/25/25 09/25/25 Range/Units 11:35 07:10 06:07 WBC 6.52 (4.8-10.8) K/ul RBC 4.74 (4.70-6.10) M/uL Hgb 12.1 L (14.0-18.0) g/dL Hct 38.3 L (42.0-52.0) % MCV 80.8 (80.0-100.0) fL MCH 25.5 (25.0-34.0) pg MCHC 31.6 L (32.0-36.0) g/dL RDW Std Deviation 46.2 (36.4-46.3) fL RDW Coeff of Abiodun 15.8 H (11.5-14.5) % Plt Count 261 (130-400) K/uL MPV 9.3 L (9.4-12.4) fL Sodium 137 (136-145) mmol/L Potassium 4.1 (3.5-5.1) mmol/L Chloride 97 L (98-107) mmol/L Carbon Dioxide 33 H (21-32) mmol/L Anion Gap 7 (3-11) BUN 24 H (6-23) mg/dl Creatinine 0.89 (0.6-1.4) mg/dl Est Cr Clr Drug Dosing 161.5 ml/min eGFR 103.75 BUN/Creatinine Ratio 27.0 H (10-20) Glucose 195 H (70-99(Fasting)) mg/dl POC Glucose 188 H 182 H (70-99) mg/dl Calcium 8.9 (8.6-10.3) mg/dl Phosphorus 4.2 (2.5-4.9) mg/dl Magnesium 1.8 (1.7-2.4) mg/dl 09/24/25 09/24/25 Range/Units 19:38 16:22 WBC (4.8-10.8) K/ul RBC (4.70-6.10) M/uL Hgb (14.0-18.0) g/dL Hct (42.0-52.0) % MCV (80.0-100.0) fL MCH (25.0-34.0) pg MCHC (32.0-36.0) g/dL RDW Std Deviation (36.4-46.3) fL RDW Coeff of Abiodun (11.5-14.5) % Plt Count (130-400) K/uL MPV (9.4-12.4) fL Sodium (136-145) mmol/L Potassium (3.5-5.1) mmol/L Chloride (98-107) mmol/L Carbon Dioxide (21-32) mmol/L Anion Gap (3-11) BUN (6-23) mg/dl Creatinine (0.6-1.4) mg/dl Est Cr Clr Drug Dosing ml/min eGFR BUN/Creatinine Ratio (10-20) Glucose (70-99(Fasting)) mg/dl POC Glucose 131 H 130 H (70-99) mg/dl Calcium (8.6-10.3) mg/dl Phosphorus (2.5-4.9) mg/dl Magnesium (1.7-2.4) mg/dl Medications Administered Current Inpatient Medications Acetaminophen (Acetaminophen 325 Mg Tab) 650 mg PO Q4H PRN PRN Reason: Pain or Fever Stop: 10/22/25 21:13 Dextrose (Dextrose 50% 50 Ml Syringe) 25 - 50 ml IV UD PRN; Protocol PRN Reason: Hypoglycemia Protocol Stop: 10/22/25 21:13 Enoxaparin Sodium (Enoxaparin Inj 40 Mg/0.4 Ml Syr) 40 mg SQ Q12 SOPHIA Stop: 10/22/25 21:13 Last Admin: 09/25/25 08:49 Dose: 40 mg Glucagon (Glucagon For Inj 1 Mg Vial) 1 mg SQ UD PRN; Protocol PRN Reason: Hypoglycemia Protocol Stop: 10/22/25 21:13 Glucose (Glucose 40% Gel 15 Gm Tube) 15 - 30 gm PO UD PRN; Protocol PRN Reason: Hypoglycemia Protocol Stop: 10/22/25 21:13 Glucose (Glucose 10 Tab/Tube) 4 - 8 tab PO UD PRN; Protocol PRN Reason: Hypoglycemia Protocol Stop: 10/22/25 21:13 Hydromorphone HCl (Hydromorphone Inj 0.5 Mg/0.5 Ml Syr) 0.5 mg IV Q6H PRN PRN Reason: Breakthrough Pain Stop: 10/06/25 21:13 Acetaminophen (Ofirmev) 1,000 mg in 100 mls @ 400 mls/hr IV Q8H PRN PRN Reason: Pain or Fever Stop: 09/25/25 21:13 Pantoprazole Sodium (Protonix) 40 mg in 10 mls @ 5 mls/min IV BID SOPHIA Stop: 10/23/25 08:59 Last Admin: 09/25/25 08:49 Dose: 5 mls/min Insulin Aspart (Insulin Aspart Per Unit Charge) 0 units SC ACHS [facility] Stop: 10/22/25 21:13 Last Admin: 09/25/25 12:31 Dose: 10 units Insulin Glargine (Lantus Per Unit Charge) 40 units SQ BID SOPHIA Stop: 10/22/25 21:13 Last Admin: 09/25/25 08:56 Dose: 40 units Metoprolol Succinate (Metoprolol Succ 50mg Ext Rel Tab) 100 mg PO BID [facility] Stop: 10/22/25 21:13 Last Admin: 09/25/25 08:48 Dose: 100 mg Miscellaneous (Carbohydrates For Hypoglycemia ) 15 - 30 gm PO UD PRN PRN Reason: Hypoglycemia Protocol Stop: 10/22/25 21:13 Miscellaneous Information (Pharmacy Glycemic Mgmt Consult) 1 each N/A UD PRN PRN Reason: Consult Stop: 10/22/25 21:13 Nitroglycerin (Nitroglycerin Sl 0.4 Mg/Tab Tab) 0.4 mg SL Q5M PRN PRN Reason: Chest Pain Stop: 10/22/25 21:13 Polyethylene Glycol (Polyethylene (Miralax) 17 Gm Pack) 17 gm PO DAILY PRN PRN Reason: Constipation Stop: 10/22/25 21:13 Spironolactone (Spironolactone 25 Mg Tab) 25 mg PO DAILY SOPHIA Stop: 10/23/25 08:59 Last Admin: 09/25/25 08:48 Dose: 25 mg Terazosin HCl (Terazosin Hcl 1 Mg Cap) 1 mg PO HS SOPHIA Stop: 10/22/25 21:13 Last Admin: 09/24/25 21:12 Dose: 1 mg
[2025-09-26 06:46] LABS: Hematocrit (blood only) 39.3 % (42.0-52.0); Hemoglobin 12.4 g/dL (14.0-18.0); Mean Corpuscular Hemoglobin 25.1 pg (25.0-34.0); Mean Corpuscular Volume 79.6 fL (80.0-100.0); Platelet Count 248 K/uL (130-400); RDW Standard Deviation 45.0 fL (36.4-46.3); Red Blood Count 4.94 M/uL (4.70-6.10); White Blood Count 6.53 K/ul (4.8-10.8)
[2025-09-26 07:21] LABS: Anion Gap 7 (3-11); Blood Urea Nitrogen 22 mg/dl (6-23); Calcium 9.1 mg/dl (8.6-10.3); Carbon Dioxide 35 mmol/L (21-32); Chloride 94 mmol/L (98-107); Creatinine Clr Calc Pharmacy 149.5 ml/min; Glucose 186 mg/dl (70-99(Fasting)); Magnesium 1.8 mg/dl (1.7-2.4); Sodium 136 mmol/L (136-145)
[2025-09-26] MEDS: LANTUS PER UNIT CHARGE SQ SCH (10:19)
[2025-09-26 11:58] VITALS: RESP 18; TEMP 99
--- NOTE | 2025-09-26 13:48 | Discharge Summary ---
Discharge Summary Date of Service September 26, 2025 Principal Dx & Hospital Course #1 = Principal Diagnosis (1) Acute on chronic respiratory failure with hypoxia and hypercapnia: 49-year-old male with past medical history significant for type 2 diabetes, diabetic polyneuropathy, diabetes causing vascular disease, hyperlipidemia, COPD, obstructive sleep apnea, hypertension, CAD, chronic diastolic CHF, morbid obesity, gastroparesis, irritable bowel syndrome, GERD, constipation, CKD, degenerative disc disease, charcoaled Raegan tooth disease, status post left BKA, history of DVT, history of pancreatitis comes in because of abdominal pain. He was found to have urinary retention and mendiola was placed. urology was consulted and recommended voiding trial prior to discharge. He was also hypoxic. CXR showing pulm vascular congestion. He was started on IV lasix for acute on chronic HFpEF. pulm was consulted for acute on chronic hypoxic hypercapnic respiratory failure. He only required 2L NC. His DAMION and suspected obesity hypoventilation syndrome also contributing. Today, he is feeling well. He is satting 86% on room air. 2 step done. New O2 script ordered for 2L at rest. he does not ambulate. BP has been consistently elevated during admission. Will increase his aldactone to 50mg daily and add lasix 20mg daily. He will need a f/u BMP in 1 week. He wishes to be discharged today and denies any complaints. Mendiola removed today and voiding without issue. His abd pain resolved with mendiola placement. He will f/u with his PCP, cable supervisor and baby registry sales consultant upon discharge. I spent a total of 45 minutes coordinating, documenting, and providing care for this patient excluding time spent in the performance of separately billed services. This included personally reviewing all current laboratories and imaging studies, medical reconciliation, outpatient chart review and discussion with specialists Notes For Next Care Provider Medication Changes From Visit aldactone increased to 50mg daily lasix 20mg added Admission HPI Per Admitting Provider 49-year-old male with past medical history significant for type 2 diabetes, diabetic polyneuropathy, diabetes causing vascular disease, hyperlipidemia, COPD, obstructive sleep apnea, hypertension, CAD, chronic diastolic CHF, morbid obesity, gastroparesis, irritable bowel syndrome, GERD, constipation, CKD, degenerative disc disease, charcoaled Raegan tooth disease, status post left BKA, history of DVT, history of pancreatitis comes in because of abdominal pain. Patient states abdominal pain is going on for last couple of months. Pain is located around periumbilical region and radiates to back. Denies any nausea or vomiting. Says he has constipation and diarrhea from his irritable bowel syndrome. Patient states micturating okay. No fevers. Has left shoulder pain going on for last couple of months. Appetite is okay. Has cough and brings phlegm. No headache. No runny nose or sore throat. Patient states he is not using his BiPAP for about a month because it is not working properly and is waiting for a new set up to come. Patient was saturating 87% in the ER and was placed on BiPAP. States he uses his insulin pump but currently did not put it on. Hemodynamics are okay. In the ER he was found to have urinary retention. Past medical history. As mentioned above. Past surgical history. Right shoulder arthroscopy. Colonoscopy. EGD. EGD with endoscopic ultrasound. Injection lumbosacral spine. Knee arthroscopy. Tonsillectomy. Social history. . Smoked 1 pack a day for 33 years. No alcohol use. Currently no drug use as per [employer]. Used to smoke marijuana in the past. Family history. Father had COPD. Hypertension. Mother has hypertension. Diabetes. Dyslipidemia. Maternal grandmother had diabetes. Paternal grandmother had diabetes. Discharge Exam Patient seen and examined twice today Vitals and labs reviewed General: Morbidly obese. NAD HEENT: EOMI, PERRLA Neck: Supple Cardiac: RRR no rubs gallops or murmurs Lungs: Diminished otherwise clear. No rhonchi or wheez Abd: S NT ND BS positive : Mendiola removed MSK: Full ROM. No obvious deformities Ext: trace b/l LE Edema Skin: Warm, Dry Neuro: AOx3 No focal deficits. Psych: Normal Mood Updated Medication List Medication Instructions Recorded Confirmed Type terazosin 1 mg capsule 1 mg PO HS 30 days #30 caps 09/17/24 09/22/25 Rx metformin 500 mg tablet,extended 1,000 mg PO BID 12/21/24 09/22/25 History release 24 hr insulin aspart U-100 100 unit/mL 0 unit continuous subcutaneous 03/08/25 09/22/25 History subcutaneous solution (Novolog infusion CONTINOUS U-100 Insulin aspart) spironolactone 25 mg tablet 25 mg PO DAILY 07/19/25 09/22/25 History insulin glargine 100 unit/mL 40 unit subcut BID 09/22/25 09/22/25 History subcutaneous solution (Lantus U-100 Insulin) metoprolol succinate 100 mg 100 mg PO BID 09/22/25 09/22/25 History tablet,extended release 24 hr furosemide 20 mg tablet (Lasix) 20 mg PO DAILY #30 tabs 09/26/25 Rx spironolactone 25 mg tablet 50 mg (2 x 25 mg) PO DAILY 30 days 09/26/25 Rx #60 tabs Hospital Stay Data Consultations 09/22/25 19:28 ED Decision to Admit Stat 09/23/25 07:29 Consult Urology Routine 09/23/25 09:54 Consult Pulmonology Routine Diagnostic Imagining Performed 09/22/25 15:05 CT abd pelvis IV con only Stat 09/23/25 09:04 CT head/brain wo con Stat Pending Results Patient Have Any Pending Studies at Discharge: No Discharge Instructions Given to Patient (Per Discharging Provider) Please follow up with your PCP in 1-2 weeks and cardiology within the next month. Please check your blood pressure daily and if elevated, notify your PCP. Please ask your PCP for repeat kidney function test in 1 week. Total Time Total Time Spent Total Time Spent (In Minutes): 45
[2025-09-26 13:51] VITALS: BP 138/71; PULSE 89; O2SAT 93
[2025-09-27] MEDS ORDERED: SPIRONOLACTONE 25 MG TAB PO SCH (09:00)
== END 2025-09-26 15:21 | disposition home health service (06) | DRG 189 ==
LOC: ED 14:36 → SUATTDRO 20:28 → EDINP 20:28 → 2E 09-23 12:10